=== PATIENT | female | born 1995 | race Caucasian/White ===

== ENCOUNTER 2020-04-19 13:58 | Outpatient (CLI) | payer BC, SELFPAY ==
[2020-04-19 14:11] LABS: Add Urine Microscopic? YES; Appearance Urine Clear (Clear); Bilirubin Urine Negative (Negative); Blood Urine 2+ (Negative); Color Urine Yellow (Yellow); Glucose Urine UA Negative (Negative); Ketones Urine Negative (Negative); Leukocyte Esterase Ur Trace (Negative); Nitrate Urine Negative (Negative); Protein Urine Negative (Negative); Specific Grav Ur 1.025 (1.010-1.020); Urobilinogen Urine 0.2 mg/dL (0.2-1.0)
[2020-04-19 14:11] LABS: Basophils Absolute Auto 0.02 K/mm3 (0.00-0.10); Basophils Percent Auto 0.3 % (0.0-1.0); Eosinophils Absolute Auto 0.17 K/mm3 (0.02-0.50); Eosinophils Percent Auto 2.1 % (1.0-6.0); Hematocrit 40.7 % (35.0-49.0); Hemoglobin 13.8 g/dL (12.0-15.0); Immature Granulocyte Absolute 0.02 K/mm3 (0.00-0.00); Immature Granulocyte Percent A 0.3 % (0.0-0.0); Lymphocytes Absolute Auto 2.22 K/mm3 (1.10-4.50); Lymphocytes Percent Auto 27.9 % (18.0-42.0); Mean Corpuscular HGB Conc 33.9 g/dL (32.0-36.0); Mean Corpuscular Hemoglobin 29.2 pg (27.0-31.0); Mean Platelet Volume 9.5 fl (9.2-11.8); Monocytes Absolute Auto 0.59 K/mm3 (0.10-0.90); Monocytes Percent Auto 7.4 % (2.0-11.0); Platelet Count Result 321 K/mm3 (150-420); Red Blood Count 4.73 M/mm3 (4.20-5.40); Red Cell Distribution Width 12.7 % (11.6-14.4)
[2020-04-19 14:17] LABS: RBC Urine 0-2 /hpf (0-2)
[2020-04-19 14:19] LABS: Bacteria Urine 4+ /hpf; Squamous Epithelial Cell Urine Many /hpf (Few)
[2020-04-19 15:51] LABS: Alanine Aminotransferase 23 U/L (14-59); Albumin Level 4.2 g/dL (3.4-5.0); Alkaline Phosphatase 57 U/L (46-116); Amylase 46 U/L (25-115); Aspartate Amino Transferase 16 U/L (15-37); Bilirubin,Total 0.7 mg/dL (0.00-1.00); Blood Urea Nitrogen 21 mg/dL (7-18); Calcium 9.2 mg/dL (8.5-10.1); Carbon Dioxide 30 mmol/L (21-32); Estimated Glomerular Filt Rate > 60; Glucose 86 mg/dL (70-99); Lipase 84 U/L (73-393); Total Protein 7.7 g/dL (6.4-8.2)
[2020-04-19 16:04] LABS: Anion Gap 11.9 mmol/L (7-16); Chloride 104 mmol/L (98-108); Osmolality Calculated 296 mOsm/kg (285-295); Potassium 3.9 mmol/L (3.5-5.1); Sodium 142 mmol/L (136-145)
== END 2020-04-19 13:59 | disposition home or self-care (01) ==
LOC: CHSLAB 14:01
PROVIDERS: PCP Internal Medicine; Visit Provider Internal Medicine
DX: R10.9 Unspecified abdominal pain (principal)
CPT/HCPCS: 36415; 80053; 81001; 82150; 83690; 85025

== ENCOUNTER 2020-06-11 00:35 | Emergency (ER) | payer BC, SELFPAY ==
--- NOTE | ~2020-06-11 | CT_ITS ---
EXAMINATION: CT abdomen pelvis wo con DATE: 06/11/2020 01:37 INDICATION: Abdominal pain TECHNIQUE: Computed tomography (CT) of the chest was performed without intravenous contrast. The dose -length product (DLP) was 896.95 mGy-cm. Automated exposure control and iterative reconstruction tech nique were employed. COMPARISON: None FINDINGS: The lung bases are clear. The heart size is normal. The gallbladder is surgically absent. T he liver, spleen, pancreas, and adrenal glands are normal. The kidneys are unremarkable. No stones ar e identified in the kidneys, ureters, or bladder. There is no hydronephrosis or hydroureter. No patho logically enlarged abdominal or pelvic lymph nodes are identified. There is no free intraperitoneal g as or evidence of bowel obstruction. An IUD is present in the uterus in expected position. IMPRESSION: 1. No CT correlate for the patient's symptoms. Reviewed, dictated and finalized at location A.
[2020-06-11 00:40] VITALS: BP 143/87; PULSE 100; RESP 18; TEMP 36.8; O2SAT 100
--- NOTE | 2020-06-11 00:54 | ED.ABDPAIN ---
HPI - Abdominal Pain General Chief Complaint: Abdominal Pain Stated Complaint: 25YO female w/ 2-3 day h.o cramping abd pain associated w/ N/V here for evaluation of pain. Patient denies fever, chills, but admits to chronic diarrhea. Related Data Home Medications Medication Instructions Recorded Confirmed paroxetine HCl 20 mg tablet 20 mg PO DAILY 05/09/20 Allergies Allergy/AdvReac Type Severity Reaction Status Date / Time No Known Allergies Allergy Verified 05/09/20 11:34 Review of Systems Review of Systems: All systems reviewed & are unremarkable except as noted in HPI and below Constitutional: Constitutional: Reports no additional constitutional complaints, Denies chills and Denies fever(s) Eyes: Eyes: Reports no additional eye complaints ENT: Reports system reviewed and no additional complaints, except as documented Cardiovascular: Cardiovascular: Reports no additional cardiovascular complaints Respiratory: Respiratory: Reports no additional respiratory complaints, Denies cough and Denies dyspnea Gastrointestinal: Gastrointestinal: Reports abdominal pain, Reports diarrhea (chronic diarrhea), Reports nausea and Reports vomiting Genitourinary: Genitourinary: Reports as per HPI and Reports dysuria Musculoskeletal: Musculoskeletal: Reports no additional musculoskeletal complaints Integumentary/Breasts: Skin/Breast: Reports system reviewed and no additional complaints, except as docu Neurologic: Reports system reviewed and no additional complaints, except as documented Psychiatric: Psychiatric: Reports no additional psychiatric complaints [facility] Past Medical History Medical History Acid reflux Anxiety Irritable bowel Surgical History Surgical History History of cholecystectomy Family History Family History Mother Family history of mental disorder Sibling Family history of mental disorder Father Hypertension Grandparent Diabetes mellitus Social History Social History Smoking status: Never smoker Alcohol intake: current Gender identity (if verbalized by the patient): Female Exam Const: General: healthy appearing, no acute distress and alert Orientation/consciousness: patient oriented x3 HENMT: Head: normal to inspection Eyes: Conjunctivae: conjunctivae normal Pupils: Equal, round and reactive pupils present Neck: Neck: normal visual inspection Chest: Chest palpation & inspection: normal inspection of the chest Resp: Effort & Inspection: normal respiratory effort Auscultation: clear to auscultation bilaterally Cardio: Rate: regular rate Rhythm: regular rhythm GI: Inspection: non-distended GI Palp: Yes Soft to palpation, Yes Tenderness to palpation present (GI) (generalized TTP) and No Rebound tenderness present Auscultation: normal bowel sounds : General: Yes no CVA tenderness Back/Spine/Pelvis: Back: no CVA tenderness Skin: General skin exam: normal color Neuro: General: patient oriented x3, moves all extremities, no focal motor deficits and CN's II-XI intact bilaterally Speech: normal speech Gait exam (Neuro): Normal gait present Extrem: General: normal to inspection Psych: Mental Status: mental status grossly normal Affect: normal affect Course Course Emergency Course: Reviewed normal w/u with patient. Encouraged bland diet as tolerated. Vital Signs Vital signs: Vital Signs Temperature 98.3 F 06/11/20 00:40 Pulse Rate 100 06/11/20 00:40 Respiratory Rate 18 06/11/20 00:40 Blood Pressure 143/87 H 06/11/20 00:40 Pulse Oximetry 100 06/11/20 00:40 Temperature 98.4 F 06/11/20 02:06 Pulse Rate 78 06/11/20 02:06 Respiratory Rate 18 06/11/20 02:06 Blood Pressure 131/77 06/11/20 02:06 Pulse Oximetry
[2020-06-11] MEDS: DICYCLOMINE HCL 10 MG CAPSULE 20 MG PO (01:14)
[2020-06-11 01:29] LABS: Basophils Absolute Auto 0.03 K/mm3 (0.00-0.10); Basophils Percent Auto 0.3 % (0.0-1.0); Eosinophils Absolute Auto 0.08 K/mm3 (0.02-0.50); Eosinophils Percent Auto 0.8 % (1.0-6.0); Hematocrit 38.9 % (35.0-49.0); Hemoglobin 12.5 g/dL (12.0-15.0); Immature Granulocyte Absolute 0.03 K/mm3 (0.00-0.00); Immature Granulocyte Percent A 0.3 % (0.0-0.0); Lymphocytes Absolute Auto 1.87 K/mm3 (1.10-4.50); Lymphocytes Percent Auto 17.6 % (18.0-42.0); Mean Corpuscular HGB Conc 32.1 g/dL (32.0-36.0); Mean Corpuscular Hemoglobin 28.4 pg (27.0-31.0); Mean Corpuscular Volume 88.4 fL (78.0-102.0); Mean Platelet Volume 9.7 fl (9.2-11.8); Monocytes Absolute Auto 0.62 K/mm3 (0.10-0.90); Monocytes Percent Auto 5.8 % (2.0-11.0); Neutrophils Percent Auto 75.2 % (50.0-70.0); Platelet Count Result 308 K/mm3 (150-420); Red Cell Distribution Width 12.9 % (11.6-14.4); White Blood Count 10.6 K/mm3 (4.8-10.8)
[2020-06-11 01:29] LABS: Add Urine Microscopic? YES; Appearance Urine Sl Cloudy (Clear); Bilirubin Urine Negative (Negative); Blood Urine Negative (Negative); Color Urine Yellow (Yellow); Glucose Urine UA Negative (Negative); Ketones Urine 1+ (Negative); Leukocyte Esterase Ur Trace LEU/UL (Negative); Nitrate Urine Negative (Negative); Protein Urine Negative (Negative); Specific Grav Ur 1.025 (1.010-1.020); Urobilinogen Urine 0.2 mg/dL (0.2-1.0); pH Urine 5.5 (5.0-8.0)
[2020-06-11 01:40] LABS: RBC Urine None seen /hpf (0-2); WBC Urine 0-3 /hpf (0-3)
[2020-06-11 01:41] LABS: Bacteria Urine 1+ /hpf; Mucus Urine None seen /lpf; Squamous Epithelial Cell Urine Many /hpf (Few)
[2020-06-11 01:44] LABS: Alanine Aminotransferase 22 U/L (14-59); Albumin Level 3.9 g/dL (3.4-5.0); Alkaline Phosphatase 52 U/L (46-116); Anion Gap 11 mmol/L (8-16); Bilirubin,Total 0.5 mg/dL (0.00-1.00); Blood Urea Nitrogen 15 mg/dL (7-18); Calcium 8.8 mg/dL (8.5-10.1); Carbon Dioxide 25 mmol/L (21-32); Chloride 107 mmol/L (98-108); Estimated Glomerular Filt Rate > 60; Glucose 82 mg/dL (70-99); Lipase 64 U/L (73-393); Osmolality Calculated 295 mOsm/kg (285-295); Potassium 3.4 mmol/L (3.5-5.1); Sodium 143 mmol/L (136-145); Total Protein 7.3 g/dL (6.4-8.2)
[2020-06-11] MEDS: SODIUM CHLORIDE 0.9% IV 1,000 ML 999 ML IV CONT (01:48)
[2020-06-11] MEDS: ONDANSETRON INJ 4 MG/2 ML VIAL IV PUSH (01:49)
[2020-06-11 01:53] LABS: Aspartate Amino Transferase 12 U/L (15-37)
[2020-06-11 02:01] LABS: INR 1.2; Prothrombin Time 12.4 Seconds (9.64-11.0)
[2020-06-11 02:06] VITALS: BP 131/77; PULSE 78; RESP 18; TEMP 36.9; O2SAT 100
[2020-06-11] MEDS: POTASSIUM CHLORIDE 20 MEQ PACKET (FOR LIQUID) PO (03:02)
[2020-06-11 03:10] VITALS: BP 142/70; PULSE 74; RESP 16; TEMP 36.9; O2SAT 96
== END 2020-06-11 03:26 | disposition home or self-care (01) ==
PROVIDERS: Emergency Provider Family Medicine; PCP Internal Medicine
DX: K52.9 Noninfective gastroenteritis and colitis, unspecified (principal); K21.9 Gastro-esophageal reflux disease without esophagitis; F41.9 Anxiety disorder, unspecified
CPT/HCPCS: 36415; 74176; 80053; 81001; 83690; 85025; 85610; 85730; 96361; 96374; 99283; 99284; A9270; J2405; J7030

== ENCOUNTER 2020-09-04 09:55 | Outpatient (CLI) | payer BC, SELFPAY ==
[2020-09-04 10:40] LABS: SARS-CoV-2 Ag Negative (Negative)
== END 2020-09-04 09:56 | disposition home or self-care (01) ==
LOC: CHSLAB 09:58
PROVIDERS: PCP Internal Medicine; Visit Provider Internal Medicine
DX: Z20.828 Contact with and (suspected) exposure to other viral communicable diseases (principal)
CPT/HCPCS: 87426

== ENCOUNTER 2020-10-15 11:11 | Outpatient (CLI) | payer BC, SELFPAY ==
--- NOTE | ~2020-10-15 | XR_ITS ---
EXAMINATION: XR chest 2V DATE: 10/15/2020 11:42 INDICATION: Shortness of breath. Palpitations. TECHNIQUE: Frontal and lateral views of the chest were obtained. COMPARISON: Chest 2 views 07/17/2015 FINDINGS: The chest demonstrates clear lungs without pneumonia, pleural effusion, or pneumothorax. Th e heart size is normal. There are surgical clips in the abdomen. IMPRESSION: 1. No acute cardiopulmonary disease. Reviewed, dictated and finalized at location A. 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
[2020-10-15 11:35] LABS: Basophils Absolute Auto 0.03 K/mm3 (0.00-0.10); Basophils Percent Auto 0.3 % (0.0-1.0); Eosinophils Absolute Auto 0.19 K/mm3 (0.02-0.50); Eosinophils Percent Auto 2.2 % (1.0-6.0); Hematocrit 40.6 % (35.0-49.0); Hemoglobin 13.6 g/dL (12.0-15.0); Immature Granulocyte Absolute 0.02 K/mm3 (0.00-0.00); Immature Granulocyte Percent A 0.2 % (0.0-0.0); Lymphocytes Absolute Auto 2.43 K/mm3 (1.10-4.50); Lymphocytes Percent Auto 28.3 % (18.0-42.0); Mean Corpuscular HGB Conc 33.5 g/dL (32.0-36.0); Mean Corpuscular Hemoglobin 28.5 pg (27.0-31.0); Mean Corpuscular Volume 84.9 fL (78.0-102.0); Mean Platelet Volume 9.7 fl (9.2-11.8); Monocytes Absolute Auto 0.75 K/mm3 (0.10-0.90); Monocytes Percent Auto 8.7 % (2.0-11.0); Neutrophils Absolute Auto 5.2 K/mm3 (1.7-7.2); Neutrophils Percent Auto 60.3 % (50.0-70.0); Platelet Count Result 318 K/mm3 (150-420); Red Blood Count 4.78 M/mm3 (4.20-5.40); Red Cell Distribution Width 12.8 % (11.6-14.4); White Blood Count 8.6 K/mm3 (4.8-10.8)
[2020-10-15 11:36] LABS: Add Urine Microscopic? NO; Appearance Urine Clear (Clear); Bilirubin Urine Negative (Negative); Blood Urine Negative (Negative); Color Urine Yellow (Yellow); Glucose Urine UA Negative (Negative); Ketones Urine Negative (Negative); Leukocyte Esterase Ur Negative LEU/UL (Negative); Nitrate Urine Negative (Negative); Protein Urine Negative (Negative); Urobilinogen Urine 0.2 mg/dL (0.2-1.0); pH Urine 7.5 (5.0-8.0)
[2020-10-15 11:50] LABS: D Dimer 0.19 mg/L (0.19-0.50)
[2020-10-15 12:02] LABS: Alanine Aminotransferase 26 U/L (14-59); Albumin Level 3.7 g/dL (3.4-5.0); Alkaline Phosphatase 48 U/L (46-116); Anion Gap 6 mmol/L (8-16); Aspartate Amino Transferase 16 U/L (15-37); Bilirubin,Total 0.4 mg/dL (0.00-1.00); Blood Urea Nitrogen 16 mg/dL (7-18); Calcium 8.8 mg/dL (8.5-10.1); Carbon Dioxide 29 mmol/L (21-32); Chloride 104 mmol/L (98-108); Creatine Kinase 69 U/L (26-192); Estimated Glomerular Filt Rate > 60; Free T4 Free Thyroxine 1.21 ng/dL (0.76-1.46); Glucose 87 mg/dL (70-99); Osmolality Calculated 288 mOsm/kg (285-295); Potassium 3.4 mmol/L (3.5-5.1); Sodium 139 mmol/L (136-145); Thyroid Stimulating Hormone 4.31 uIU/mL (0.36-3.74); Total Protein 7.7 g/dL (6.4-8.2); Troponin I 4.8 ng/L (0.00-60.4)
[2020-10-19 02:06] LABS: T4 Thyroxine 11.9 mcg/dL (5.1-11.9)
[2020-10-19 05:42] LABS: Total Triiodothyronine (T3) 174 ng/dL (76-181)
== END 2020-10-15 11:12 | disposition home or self-care (01) ==
LOC: CHSLAB 11:13
PROVIDERS: PCP Internal Medicine; Visit Provider Nurse Practitioner Family
DX: R00.2 Palpitations (principal); R06.02 Shortness of breath; R07.9 Chest pain, unspecified
CPT/HCPCS: 36415; 71046; 80053; 81003; 82550; 82553; 84436; 84439; 84443; 84480; 84484; 85025; 85380; 93225; 93226

== ENCOUNTER 2020-12-12 10:42 | Outpatient (CLI) | payer BC, SELFPAY ==
[2020-12-12 11:24] LABS: SARS-CoV-2 Ag Negative (Negative)
== END 2020-12-12 10:43 | disposition home or self-care (01) ==
LOC: CHSLAB 10:45
PROVIDERS: PCP Internal Medicine; Visit Provider Internal Medicine
DX: Z20.822 Contact with and (suspected) exposure to COVID-19 (principal)
CPT/HCPCS: 87426; C9803

== ENCOUNTER 2023-09-08 10:33 | Outpatient (CLI) | payer MEDICAID, SELFPAY ==
--- NOTE | ~2023-09-08 | XR_ITS ---
XR lumbar spine 2-3V 09/08/2023 11:03 Indication: Back pain Procedure: 3 views lumbar spine Comparison: 09/29/2017 Findings: There is disc narrowing at L4-5 and L5-S1. No fracture, subluxation or dislocation. Vertebr al body heights are maintained. No acute fracture or traumatic malalignment. No evidence for spondylo listhesis. Impression: 1: Mild lumbar spondylosis. Reviewed, dictated and finalized at location L. T CARD CLERK Impression: 1: Mild lumbar spondylosis.
[2023-09-08 10:53] LABS: Basophils Absolute Auto 0.05 K/mm3 (0.00-0.10); Basophils Percent Auto 0.5 % (0.0-1.0); Eosinophils Absolute Auto 0.08 K/mm3 (0.02-0.50); Eosinophils Percent Auto 0.8 % (1.0-6.0); Hematocrit 40.9 % (35.0-49.0); Hemoglobin 13.1 g/dL (12.0-15.0); Immature Granulocyte Absolute 0.06 K/mm3 (0.00-0.00); Immature Granulocyte Percent A 0.6 % (0.0-0.0); Lymphocytes Absolute Auto 1.63 K/mm3 (1.10-4.50); Lymphocytes Percent Auto 16.6 % (18.0-42.0); Mean Corpuscular Volume 90.5 fL (78.0-102.0); Mean Platelet Volume 8.8 fl (9.2-11.8); Monocytes Absolute Auto 0.57 K/mm3 (0.10-0.90); Monocytes Percent Auto 5.8 % (2.0-11.0); Neutrophils Absolute Auto 7.5 K/mm3 (1.7-7.2); Neutrophils Percent Auto 75.7 % (50.0-70.0); Platelet Count Result 364 K/mm3 (150-420); Red Blood Count 4.52 M/mm3 (4.20-5.40); Red Cell Distribution Width 13.3 % (11.6-14.4); White Blood Count 9.8 K/mm3 (4.8-10.8)
[2023-09-08 11:27] LABS: Alanine Aminotransferase 33 U/L (14-59); Albumin Level 3.8 g/dL (3.4-5.0); Alkaline Phosphatase 46 U/L (46-116); Anion Gap 4 mmol/L (8-16); Aspartate Amino Transferase 15 U/L (15-37); Bilirubin,Total 0.5 mg/dL (0.00-1.00); Blood Urea Nitrogen 19 mg/dL (7-18); Calcium 9.1 mg/dL (8.5-10.1); Carbon Dioxide 33 mmol/L (21-32); Chloride 102 mmol/L (98-108); Estimated Glomerular Filt Rate > 60; Glucose 81 mg/dL (70-99); Osmolality Calculated 289 mOsm/kg (285-295); Sodium 139 mmol/L (136-145); Total Protein 7.1 g/dL (6.4-8.2)
[2023-09-08 11:30] LABS: CRP < 0.5 mg/dL (0.0-0.9)
== END 2023-09-08 10:34 | disposition home or self-care (01) ==
LOC: CHSLAB 10:36
PROVIDERS: PCP Internal Medicine; Visit Provider Internal Medicine
DX: M54.50 Low back pain, unspecified (principal); M54.16 Radiculopathy, lumbar region; M43.06 Spondylolysis, lumbar region
CPT/HCPCS: 36415; 72100; 80053; 85025; 86140

== ENCOUNTER 2023-09-11 08:37 | Outpatient (RCR) | payer MEDICAID, SELFPAY ==
--- NOTE | 2023-09-24 17:45 | OPREHPOC ---
Outpatient Therapy Plan of Care This is a Multidisciplinary Plan of Care that may contain components documented by all disciplines (PT, OT, and ST.) PT Problem 1 PT Problem #1 Knowledge Deficit PT Goal 1 Goal 1. independent and compliant with HEP Target Visit 6 PT Problem 2 PT Problem #2 Pain PT Goal 1 Goal 1. 2/10 or less pain at worst in the lower back. 2. no L LE symptoms Target Visit 12 PT Problem 3 PT Problem #3 Impaired Strength PT Goal 1 Goal 1. improve core strength to 4-/5 2. improve bilateral LE strength to 5/5 Target Visit 12 PT Problem 4 PT Problem #4 Impaired Range of Motion PT Goal 1 Goal 1. 100% arom lumbar mobility without pain. Target Visit 12 PT Problem 5 PT Problem #5 Impaired Functional Mobil PT Goal 1 Goal 1. oswestry to display less than 10% functional deficits 2. patient to ambulate for 10 minutes without rest 3. patient to stand perform 1 hour of skilled PT without rest 4. patient to squat and lift 40lbs from floor to waist with safe mechanics Target Visit 12
--- NOTE | 2023-09-24 17:46 | PTOPEVAL1 ---
Assessment and note entered by JT File, PT Evaluation Information Assessment Status Evaluation Diagnosis lumbago, L lumbosacral radiculopathy Onset 08/09/23 Subjective Information patient reports she had an injury on 08/09/23. she reports twisted wrong at work while lifting. 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 she reports since the injury, she can feel the pain in the lower back on the L side. she reports the pain is shooting down the L LE. she reports the pain goes down to the mid calf of the L LE. she reports the pain is all on the back of the L LE. she reports she has increased pain with sitting, bending, trying to walk. Reported Pain Level Pain Score 1: Self Report Assessment PT Clinical Summary mrs. hughes is a 28 yo woman who presents to skilled PT services for evaluation and treatment of lower back pain/L lumbar radiculopathy. she presents with signs and symptoms today that indicate she had a discoid injury in the lower back. she has L LE paresthesias, pain, weakness, and postural guarding. she would benefit from continued skilled PT to address her objective/ functional deficits and return to her prior level functional activity performance/quality life. Plan of Care Interventions Electrical Stimulation,Gait Training,Hot Pack/Cold Pack,Manual Therapy,Mechanical Traction,Neuro Re- education,Patient/Caregiver Educati,Therapeutic Activities,Therapeutic Exercise PT Services Indicated Yes Treatment Frequency and 2x weekly for 12 visits Duration These treatments will address the objective and functional deficits as defined above. The patient will be advanced safely and appropriately in order for the patient to progress towards his/her prior level of function. Additional exercises will be introduced and as well as a comprehensive home exercise program upon discharge, if needed, ?to ensure carryover of functional gains achieved in the clinic. This treatment plan has been reviewed and agreement upon by the patient.
--- NOTE | 2023-10-06 07:12 | PCPTNOTE ---
patient was a no call/no show this morning. called patient and left to inform patient she missed her appointment this morning, and has another appointment scheduled this week on 10/08/23.
--- NOTE | 2023-10-08 07:16 | PCPTNOTE ---
patient missed her therapy this morning, and again was a no call/no show. I called and left a VM on patients phone that she had missed today, and has no future visits scheduled. gave patient our phone number to call to get back on the schedule.
== END 2023-09-25 20:00 | disposition home or self-care (01) ==
LOC: CHSPT 08:37
PROVIDERS: PCP Internal Medicine; Visit Provider Internal Medicine
DX: M54.50 Low back pain, unspecified (principal); M54.17 Radiculopathy, lumbosacral region
CPT/HCPCS: 97014; 97110; 97161; G0283

== ENCOUNTER 2024-03-07 20:24 | Emergency (ER) | payer OTHER, SELFPAY ==
[2024-03-07 20:34] VITALS: BP 126/85; PULSE 87; RESP 18; TEMP 36.4; O2SAT 100
--- NOTE | 2024-03-07 21:08 | ED.DENTAL ---
HPI - Dental/Oral General Chief complaint: Dental/Oral Stated complaint: dental pain Time Seen by Provider: 03/07/24 21:08 Source: patient Mode of arrival: ambulatory Limitations: no limitations History of Present Illness HPI Narrative: 29 year old female presents to the Emergency Department complaining of left lower dental pain. Onset several days ago. Complaint: tooth pain Onset (ago): day(s) (several) Duration: constant Severity: mild Relieving factors: nothing Exacerbating factors: nothing Related Data Home Medications Medication Instructions Recorded Confirmed escitalopram oxalate 10 mg tablet 10 mg PO DAILY 03/07/24 03/07/24 nortriptyline 10 mg capsule 10 mg PO DAILY 03/07/24 03/07/24 Allergies Allergy/AdvReac Type Severity Reaction Status Date / Time No Known Allergies Allergy Verified 03/07/24 20:26 Review of Systems Review of Systems: All systems reviewed & are unremarkable except as noted in HPI and below Constitutional: Constitutional: Reports as per HPI Eyes: Eyes: Reports as per HPI ENT: Reports system reviewed and no additional complaints, except as documented Cardiovascular: Cardiovascular: Reports as per HPI Respiratory: Respiratory: Reports as per HPI Gastrointestinal: Gastrointestinal: Reports as per HPI Genitourinary: Genitourinary: Reports no additional female genitourinary complaints Musculoskeletal: Musculoskeletal: Reports no additional musculoskeletal complaints Integumentary/Breasts: Skin/Breast: Reports system reviewed and no additional complaints, except as docu Neurologic: Reports system reviewed and no additional complaints, except as documented Psychiatric: Psychiatric: Reports no additional psychiatric complaints Endocrine: Endocrine: Reports no additional endocrine complaints Hematologic/Lymphatic: Hematologic/Lymphatic: Reports no additional hematologic/lymphatic complaints Allergic/Immunologic: Allergic/Immunologic: Reports no additional allergic/immunologic complaints [facility] Past Medical History Medical History (Updated 03/07/24 @ 21:39 by Kelechi Calderon MD) Acid reflux Anxiety Irritable bowel Surgical History Surgical History History of cholecystectomy Family History Family History Mother Family history of mental disorder Sibling Family history of mental disorder Father Hypertension Grandparent Diabetes mellitus Social History Social History Smoking status: Never smoker Alcohol intake: current Gender identity (if verbalized by the patient): Female Exam Const: General: healthy appearing Nutritional Appearance: obese Orientation/consciousness: patient oriented x3 Limitations: no limitations HENMT: Head: normal to inspection Ears: external ears normal Face/Nose/Sinus: Normal external nose present Face and sinus: normal facial exam Mouth: Yes Normal oral and palatal mucosa present Teeth and gingiva: abnormal tooth and associated gingiva (dental decay #18) Throat: posterior oropharynx normal Eyes: Conjunctivae: conjunctivae normal Pupils: Equal, round and reactive pupils present EOM: EOMs intact bilaterally Direct Ophthalmoscopy: no photophobia Neck: Neck: normal visual inspection Chest: Chest palpation & inspection: normal inspection of the chest Resp: Effort & Inspection: normal respiratory effort Cardio: Rate: regular rate Rhythm: regular rhythm GI: Inspection: non-distended Skin: General skin exam: normal color Rashes: no rashes Wounds: no wounds Neuro: General: patient oriented x3, moves all extremities, no meningeal signs, no focal motor deficits and CN's II-XI intact bilaterally Cranial nerves: Yes Nystagmus not present Speech: normal speech Gait exam (Neuro): Normal gait present Extrem: General: normal to inspection Psych: Men
[2024-03-07] MEDS: HYDROcodone/acetaminophen (*CRX) 10-325 MG TABLET 1 TAB PO (21:52)
[2024-03-07] MEDS: AMOXICILLIN/CLAVULANATE K 875-125 MG TAB 1 TABLET PO (21:52)
[2024-03-07 22:10] VITALS: BP 125/66; PULSE 88; RESP 16; TEMP 36.9; O2SAT 100
[2024-03-07 22:37] LABS: HIV 1 P24 AG Negative (Negative); HIV 1/2 AB Negative (Negative)
== END 2024-03-07 22:10 | disposition home or self-care (01) ==
PROVIDERS: Emergency Provider Emergency Medicine; PCP Internal Medicine
DX: K08.89 Other specified disorders of teeth and supporting structures (principal); K02.9 Dental caries, unspecified; F41.9 Anxiety disorder, unspecified; Z11.4 Encounter for screening for human immunodeficiency virus [HIV]
CPT/HCPCS: 36415; 87806; 99283; A9270

== ENCOUNTER 2024-09-29 02:47 | Emergency (ER) | payer OTHER, MEDICAID, SELFPAY ==
[2024-09-29] VITALS (12 sets, daily range): BP systolic 136–155; BP diastolic 81–105; PULSE 96–111; RESP 16–18; TEMP 37–37.6; O2SAT 97–100
--- NOTE | ~2024-09-29 | CT_ITS ---
EXAMINATION: CT abdomen pelvis wo con DATE: 09/29/2024 04:25 INDICATION: Left lower quadrant abdominal pain. Recent section. TECHNIQUE: Computed tomography (CT) of the abdomen and pelvis was performed without intravenous contr ast. Automated exposure control and iterative reconstruction technique were employed. The dose-length product was 1585.95 mGy-cm. COMPARISON: CT abdomen and pelvis 06/11/2020 FINDINGS: The visualized portions of the lung bases demonstrate mild atelectasis on the left. No pleu ral effusion. The heart size is normal. No pericardial effusion. The liver is normal. There are lopez es of cholecystectomy. The spleen, pancreas, adrenal glands, and kidneys are normal. There is no urol ithiasis. There are no dilated loops of bowel. The appendix is normal. There are no pathologically en larged lymph nodes. There is no free intraperitoneal fluid. The uterus is enlarged, consistent with r ecent . There is a 10.3 x 2.4 x 2.9 cm subcutaneous fluid collection in low anterior abdomin al wall at the site of recent section. The left ovary is enlarged and measures 5.0 x 3.5 cm. There is mild lumbar spondylosis. IMPRESSION: 1. 10.3 x 2.4 x 2.9 cm subcutaneous fluid collection at the site of the recent section, cons istent with seroma versus hematoma versus abscess. 2. Enlarged left ovary, which may be secondary to mass/cyst, torsion, or juxta-ovarian ascites. Pelvi s ultrasound is recommended. Reviewed, dictated and finalized at location A. ESSIONAL EMPLOYER CONSULTANT IMPRESSION: 1. 10.3 x 2.4 x 2.9 cm subcutaneous fluid collection at the site of the recent section, consistent with seroma versus hematoma versus abscess. 2. Enlarged left ovary, which may be secondary to mass/cyst, torsion, or juxta- ovarian ascites. Pelvis ultrasound is recommended.
--- NOTE | ~2024-09-29 | US_ITS ---
EXAMINATION: US pelvic complete DATE: 09/29/2024 07:30 INDICATION: Left lower quadrant abdominal pain. TECHNIQUE: Multiple transabdominal sonographic images of the pelvis were obtained. COMPARISON: CT abdomen and pelvis 09/29/2024 FINDINGS: The uterus measures 10.5 x 8.6 x 6.3 cm. There is no free fluid in the pelvis. In the subcutaneous fa t at the section incision, there is a 7.1 x 3.0 x 1.9 cm thick-walled fluid collection. The endometrial complex measures 9 mm in thickness. The ovaries are not visualized. IMPRESSION: 1. Thick-walled subcutaneous fluid collection at the section incision, which may be a subacu te hematoma, seroma, or abscess. 2. Ovaries not visualized. Reviewed, dictated and finalized at location A. ISH LANGUAGE LECTURER IMPRESSION: 1. Thick-walled subcutaneous fluid collection at the section incision, which may be a subacute hematoma, seroma, or abscess. 2. Ovaries not visualized.
--- NOTE | 2024-09-29 03:02 | ED_ITS ---
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 patient was on oxycodone for postop pain. She had lower abdominal pain around 11:00 p.m. before bedtime and then she woke up at 2:00 a.m. with chills. She rates her pain as a 4 to 5/10. She has been having constipation on and off for the past 10 days last bowel movement was at 5:00 p.m. she had been having about 2 bowel movements a day. Today was the 1st day she had taken MiraLax. She has history of hypertension possibly before her but started treatment during her and now on nifedipine XL 60 mg daily labetalol 300 mg 3 times a day. Denies any problems voiding. She has had a and gallbladder surgery. History of GERD hypertension irritable bowel syndrome and preeclampsia. Denies any Nausea vomiting,fever cough runny nose sore throat problems walking talking seeing or hearing dizziness or lightheadedness swelling lumps or bumps weakness or numbness. She has had vaginal bleed since her C- section which is gradually getting better. She denies any other complaints. She is here in the ED with her father tc complaint of constipation Related Data Home Medications ?Medication ?Instructions ?Recorded ?Confirmed ?Last Taken ?Type cyclobenzaprine 5 mg tablet 5 mg PO PRN cramps 09/29/24 Unknown History escitalopram oxalate 20 mg tablet 20 mg PO .QD 09/29/24 09/29/24 Unknown History famotidine 40 mg tablet 40 mg PO QHS 09/29/24 09/29/24 Unknown History ibuprofen 600 mg tablet 600 mg PO Q6-8H PRN pain 09/29/24 09/29/24 Unknown History labetalol 300 mg tablet 300 mg PO .Q8 09/29/24 09/29/24 09/28/24 History nifedipine 60 mg tablet,extended 60 mg PO .Q24 09/29/24 09/29/2409/28/24 History release oxycodone 5 mg tablet 5 mg PO QID PRN pain 09/29/24 09/29/24 09/28/24 History polyethylene glycol 3350 17 17 g PO .QD 09/29/24 09/29/24 09/28/24 History gram/dose oral powder (ClearLax) Allergies Allergy/AdvReac Type Severity Reaction Status Date / Time No Known Allergies Allergy Verified 09/29/24 03:07 Review of Systems 2 Review of Systems: All systems reviewed & are unremarkable except as noted in HPI and below PMFSH Past Medical History Medical History (Updated 09/29/24 @ 08:09 by Ty Hughes MD) Acid reflux Anxiety Irritable bowel Surgical History Surgical History History of cholecystectomy Family History Family History Mother Family history of mental disorder Sibling Family history of mental disorder Father Hypertension Grandparent Diabetes mellitus Social History Social History Smoking status: Never smoker Alcohol intake: current Gender identity (if verbalized by the patient): Female Exam 2 Narrative: White female patient with no apparent distress. blood pressure 155/98 repeat 139/88.? Head normocephalic, atraumatic.? Eyes conjunctiva pink sclera nonicteric.? Extraocular movements are intact.? Ears externally normal. ?Oropharynx is clear with moist mucous membranes without exudates.? Neck is supple nontender no lymphadenopathy.? Back is nontender.? No CVA tenderness. Lungs are clear.? Heart is regular rate and rhythm without murmurs gallops or rubs.? Chest wall nontender. Abdomen is soft and Positive bowel sounds. She has suprapubic tenderness. Her incision is nontender lives healing well with no discharge. She has no hepatosplenomegaly or masses no CVA tenderness no abdominal bruits.? Extremities no cyanosis clubbing or edema.? Skin is warm and dry without rashes or lesions.? Neurological patient is alert and oriented x4.? Motor and sensory grossly intact.? Gait is normal. Course Vital Signs Vital signs: Vital Signs Temperature 37.6 C 12/26/24 02:54 Pulse Rate 100 09/29/24 02:54 Respiratory Rate 18 09/29/24 02:54 Blood Pressure 155/98 H 09/29/24 02:54 Pulse Oximetry 98 09/29/24 02:54 Oxygen Delivery Room Air 09/29/24 02:54 Temperature 37.0 C 09/29/24 06:05 Pulse Rate 99 09/29/24 06:05 Respiratory Rate 18 09/29/24 06:05 Blood Pressure 136/90 09/29/24 06:05 Pulse Oximetry 99 09/29/24 06:05 Oxygen Delivery Room Air 09/29/24 06:05 Medical Decision Making MDM Narrative Medical decision making narrative: ?Patient placed in room: 6 with her father ? History and physical was performed. blood culture obtained CT abdomen pelvis without contrast: ventral soft tissue of operative bed subcutaneous 12 cm collection of potentially abscess or hematoma left adnexal region possibly prominent ovary recommend pelvic ultrasound H&H 10.1 and 30.6 with normal wbc's it and platelets.? Coags unremarkable, Sodium 146 potassium 3.1 Osmo 301 the rest of CMP is normal. Lactic acid is normal lipase is normal Urine is positive for nitrites +2 bacteria Independent Historian: father External Source Review: Differential Dx includes but not limited to: constipation pancreatitis bowel obstruction colitis uterine infection Medications were Reviewed: home meds reviewed Medications given: oxycodone 5, cipro 500 mg po Independently Interpreted by me: labs independently interpreted by me. Shared decision Making: Evaluation was discussed with patient her father all questions were asked and answered they agreed with the plan. 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 ORR DIAGNOSIS: abdominal pain urinary tract infection ultrasound showed thick wall subcutaneous fluid collection over C-sections incision most likely subacute hematoma or seroma. Of the disease and abscess is nontender whatsoever there is no erythema or warmth. DISPOSITION : discharge home CONDITION AT DISCHARGE: stable Vital Signs Vital Signs: Vital Signs Temperature 37.6 C 09/29/24 02:54 Pulse Rate 100 09/29/24 02:54 Respiratory Rate 18 09/29/24 02:54 Blood Pressure 155/98 H 09/29/24 02:54 Pulse Oximetry 98 09/29/24 02:54 Oxygen Delivery Room Air 09/29/24 02:54 Temperature 37.0 C 09/29/24 06:05 Pulse Rate 99 09/29/24 06:05 Respiratory Rate 18 09/29/24 06:05 Blood Pressure 136/90 09/29/24 06:05 Pulse Oximetry 99 09/29/24 06:05 Oxygen Delivery Room Air 09/29/24 06:05 Lab Data 09/29/24 04:01 09/29/24 04:01 Labs: Lab Results 09/29/24 09/29/24 Range/Units 04:01 04:04 WBC 6.2 (4.8-10.8) K/mm3 RBC 3.41 L (4.20-5.40) M/mm3 Hgb 10.1 L (12.0-15.0) g/dL Hct 30.6 L (35.0-49.0) % MCV 89.7 (78.0-102.0) fL MCH 29.6 (27.0-31.0) pg MCHC 33.0 (32-36) g/dL RDW 14.1 (11.6-14.4) % Plt Count 332 (150-420) K/mm3 MPV 8.1 L (9.2-11.8) fl PT 12.3 H (9.50-12.1) Seconds INR 1.1 APTT 24.8 (23.9-30.70) Sec Sodium 146 H (136-145) mmol/L Potassium 3.1 L (3.5-5.1) mmol/L Chloride 108 (98-108) mmol/L Carbon Dioxide 26 (21-32) mmol/L Anion Gap 12 (4-12) mmol/L BUN 11 (7-18) mg/dL Creatinine 0.83 (0.55-1.02) mg/dL Estim Creat Clear Calc 117 ml/min Estimated GFR > 60 (59 - ) Glucose 94 (70-99) mg/dL Calculated Osmolality 301 H (285-295) mOsm/kg Lactic Acid 1.1 (0.4-2.0) mmol/L Calcium 8.9 (8.5-10.1) mg/dL Total Bilirubin 0.4 (0.00-1.00) mg/dL AST 12 L (15-37) U/L ALT 21 (14-59) U/L Alkaline Phosphatase 76 (46-116) U/L Total Protein 6.7 (6.4-8.2) g/dL Albumin 2.7 L (3.4-5.0) g/dL Lipase 32 (16-77) U/L Urine Color Light yellow (Yellow) Urine Appearance Clear (Clear) Urine pH 6.0 (5.0-8.0) Ur Specific [place] 1.025 H (1.010-1.020) Urine Protein Trace H (Negative) Urine Glucose (UA) Negative (Negative) Urine Ketones Negative (Negative) Ur Blood (Man) Negative (Negative) Urine Nitrate Positive H (Negative) Urine Bilirubin Negative (Negative) Urine Urobilinogen 0.2 (0.2-1.0) mg/dL Leukocyte Esterase Rfl Negative (Negative) TIMA/UL Urine RBC 0-2 (0-2) /hpf Urine WBC 0-3 (0-3) /hpf Ur Squamous Epith Cells Few (Few) /hpf Urine Bacteria 2+ (None) /hpf Discharge Plan Discharge Clinical Impression: Acute UTI, Seroma after procedure Abdominal pain Qualifiers: Abdominal location: generalized Qualified Code(s): R10.84 - Generalized abdominal pain Patient Disposition: Home, Self-Care Condition: Stable Instructions: Antibiotic Form Additional Instructions: Cipro 250 twice a day for 5 days. Follow-up with your supervisor cigar making hand in the next 1-7 days. Return if you get worse or develops any new symptoms.. Return if you get worse or develops any new symptoms. discuss your ultrasound of your pelvis with her ceramic tile setter. Patient Language: Citizen Of [place] Prescriptions: New ciprofloxacin HCl [Cipro] 250 mg tablet 250 mg PO Q12H 5 Days Qty: 10 0RF No Action famotidine 40 mg tablet 40 mg PO QHS escitalopram oxalate 20 mg tablet 20 mg PO .QD cyclobenzaprine 5 mg tablet 5 mg PO PRN (Reason: cramps) ibuprofen 600 mg tablet 600 mg PO Q6-8H PRN (Reason: pain) labetalol 300 mg tablet 300 mg PO .Q8 polyethylene glycol 3350 [ClearLax] 17 gram/dose powder 17 g PO .QD nifedipine 60 mg tablet extended release 60 mg PO .Q24 oxycodone 5 mg tablet 5 mg PO QID PRN (Reason: pain) Follow-up/Referrals: Bertrand Stephen MD [Primary Care Provider] - Time of Disposition: 07:57
[2024-09-29 04:06] LABS: Hematocrit 30.6 % (35.0-49.0); Hemoglobin 10.1 g/dL (12.0-15.0); Mean Corpuscular Hemoglobin 29.6 pg (27.0-31.0); Mean Corpuscular Volume 89.7 fL (78.0-102.0); Mean Platelet Volume 8.1 fl (9.2-11.8); Platelet Count Result 332 K/mm3 (150-420); Red Blood Count 3.41 M/mm3 (4.20-5.40); Red Cell Distribution Width 14.1 % (11.6-14.4); White Blood Count 6.2 K/mm3 (4.8-10.8)
[2024-09-29 04:08] LABS: Add Urine Microscopic? YES; Appearance Urine Clear (Clear); Bilirubin Urine Negative (Negative); Blood Urine Negative (Negative); Color Urine Light Yellow (Yellow); Glucose Urine UA Negative (Negative); Ketones Urine Negative (Negative); Leukocyte Esterase Ur Negative LEU/UL (Negative); Nitrate Urine Positive (Negative); Protein Urine Trace (Negative); Specific Grav Ur 1.025 (1.010-1.020); Urobilinogen Urine 0.2 mg/dL (0.2-1.0)
[2024-09-29 04:18] LABS: Bacteria Urine 2+ /hpf; RBC Urine 0-2 /hpf (0-2); Squamous Epithelial Cell Urine Few /hpf (Few); WBC Urine 0-3 /hpf (0-3)
[2024-09-29 04:21] LABS: INR 1.1; Partial Thromboplastin Time 24.8 Sec (23.9-30.70); Prothrombin Time 12.3 Seconds (9.50-12.1)
[2024-09-29 04:35] LABS: Lactic Acid Reflex 1.1 mmol/L (0.4-2.0)
[2024-09-29] MEDS: oxyCODONE/ACETAMINOPHEN (*CRX) 5-325 MG TABLET 1 TABLET PO (04:35)
[2024-09-29 04:38] LABS: Anion Gap 12 mmol/L (4-12); Blood Urea Nitrogen 11 mg/dL (7-18); Carbon Dioxide 26 mmol/L (21-32); Chloride 108 mmol/L (98-108); Estimated CRCL calculation 117 ml/min; Estimated Glomerular Filt Rate > 60; Potassium 3.1 mmol/L (3.5-5.1); Sodium 146 mmol/L (136-145)
[2024-09-29 04:39] LABS: Alanine Aminotransferase 21 U/L (14-59); Albumin Level 2.7 g/dL (3.4-5.0); Alkaline Phosphatase 76 U/L (46-116); Aspartate Amino Transferase 12 U/L (15-37); Bilirubin,Total 0.4 mg/dL (0.00-1.00); Calcium 8.9 mg/dL (8.5-10.1); Glucose 94 mg/dL (70-99); Lipase 32 U/L (16-77); Osmolality Calculated 301 mOsm/kg (285-295); Total Protein 6.7 g/dL (6.4-8.2)
--- NOTE | 2024-09-29 07:15 | PC.NURSE ---
REPORT TO KRYSTEN WHITE.
[2024-09-29] MEDS: CIPROFLOXACIN 500 MG TAB PO (07:29)
--- NOTE | 2024-10-01 12:48 | PC.NURSE ---
preliminary blood cultures x2 reviewed. no growth to date
--- NOTE | 2024-10-01 12:57 | PC.NURSE ---
final urine culture reviewed. > 100,000 pseudomonas aeruginosa isolated. report shows sensitivity to cipro prescribed to pt at discharge. no change in plan of care.
--- NOTE | 2024-10-05 12:30 | PC.NURSE ---
FINAL BLOOD CULTURE REPORT; NO GROWTH AFTER 5 DAYS.
--- OUTSIDE RECORDS SUMMARY | 2024-10-06 03:30 | XMS_ITS | Encounter Summary ---
Author Organization [facility] Address [address] [place] [address]. 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 difficile 10/20/2018 10/20/2018 documented as of this encounter
--- OUTSIDE RECORDS SUMMARY | 2024-10-06 03:30 | XMS_ITS | Clinical Summary ---
Author Organization [facility] Address [address] [place] [address]. [place] [address] Care Team Providers Care Community Advocate Name Role Phone Unavailable Primary Care Provider Unavailabl e Social History Tobacco Use Types Packs/Day Years Used Date Smoking Tobacco: Never Assessed Comments Unknown Sex and Gender Information Value Date Recorded Sex Assigned at Not on file Legal Sex Female 9:48 PM INTELLIGENCE CONSULTANT Gender Identity Not on file Sexual Orientation Not on file Plan of Treatment Health Maintenance Due Date Last Done Comments Cervical Cancer Screening Pa p Smear (Age 21 to 29) Every 3 Years 1997 Cervical Cancer Screening 1997 Annual Physical 02/01/2000 Hepatitis C 2015 DTaP, Tdap and Td Vaccines ( 1 - Tdap) 02/01/2016 Hepatitis B Vaccines (1 of 3 - 19+ 3-dose series) 02/01/2016 COVID-19 Vaccine (2023-2 5 season) 2024 Influenza Adult (#1) 2024 HPV Vaccines Aged Out No longer eligi ble based on patient's age to complete this topic Meningococcal Vaccine Aged Out No tian audra eligible based on patient's age to complete this topic Pneumococcal Vaccine: Pediat rics (0 to 5 Years) and At-Risk Patients (6 to 64 Years) Aged Out No longer eligible b ased on patient's age to complete this topic RSV Immunizations Under 20 Months Aged Out No longer eligible based on patient's age to complete this topic Additional Health Concerns Infection Onset Date Last Indicated C. difficile 10/20/2018 10/20/2018 Insurance [facility] MEDICAID
--- OUTSIDE RECORDS SUMMARY | 2024-10-06 03:30 | XMS_ITS | Encounter Summary ---
Author Organization [facility] Address [address] [place] [address]. [place] [address] [place] [address] Care Team Providers Care Hazardous Waste Remover Name Role Phone Unavailable Primary Care Provider Unavailabl e Encounter Details Date Type Department Care Team (Late st Contact Info) Description 05/01/2018 Abstract [place] [facility] [facility] [address] Leonel Flaherty MD [address] [address] Social History Tobacco Use Types Packs/Day Years Used Date Smoking Tobacco: Never Assessed Comments Unknown Sex and Gender Information Value Date Recorded Sex Assigned at Not on file Legal Sex Female 9:48 PM STEAMBLASTER Gender Identity Not on file Sexual Orientation Not on file documented as of this encounter Plan of Treatment Not on file documented as of this encounter Visit Diagnoses Diagnosis Rash and other nonspecific skin eruption documented in this encounter Additional Health Concerns Infection Onset Date Last Indicated Resolved Time C. difficile 10/20/2018 10/20/2018 documented as of this encounter
--- OUTSIDE RECORDS SUMMARY | 2024-10-06 03:30 | XMS_ITS | Encounter Summary ---
Author Organization [facility] Address [address] [place] [address]. [place] [address] [place] [address] Care Team Providers Care Director Integrated Name Role Phone Unavailable Primary Care Provider Unavailabl e Encounter Details Date Type Department Care Team (Late st Contact Info) Description 03/14/2018 Abstract [place] [facility] [facility] [place] [address] Seferino Valles MD [address] [place] [address] Social History Tobacco Use Types Packs/Day Years Used Date Smoking Tobacco: Never Assessed Comments Unknown Sex and Gender Information Value Date Recorded Sex Assigned at Not on file Legal Sex Female 9:48 PM UROLOGY PHYSICIAN ASSISTANT Gender Identity Not on file Sexual Orientation Not on file documented as of this encounter Plan of Treatment Not on file documented as of this encounter Visit Diagnoses Diagnosis Open wound of right great toe with damage to nail Open wound of toe(s), without mention of complication documented in this encounter Additional Health Concerns Infection Onset Date Last Indicated Resolved Time C. difficile 10/20/2018 10/20/2018 documented as of this encounter
--- OUTSIDE RECORDS SUMMARY | 2024-10-06 03:30 | XMS_ITS | Encounter Summary ---
Author Organization [facility] Address [address] [place] [address]. [place] [address] [place] [address] Care Team Providers Care Radio Technician Name Role Phone Unavailable Primary Care Provider Unavailabl e Reason for Visit * Reason Comments Holter Monitor Report (SCAN) Encounter Details Date Type Department Care Team ([facility] Contact Info) Description 10/15/2020 [facility] [address] [place] [id number] Scanned, Documents Holter Monitor Report (SCAN) Social History Tobacco Use Types Packs/Day Years Used Date Smoking Tobacco: Never Assessed Comments Unknown Sex and Gender Information Value Date Recorded Sex Assigned at Not on file Legal Sex Female 9:48 PM TICKET MAKER Gender Identity Not on file Sexual Orientation Not on file documented as of this encounter Plan of Treatment Not on file documented as of this encounter Procedures Procedure Name Priority Date/Time Associated Diagnosis Comments HOLTER DOCUMENT (SCAN ORDER) Routine 10/15/2020 documented in this encounter Results * HOLTER DOCUMENT (10/15/2020) us Documents Scanned SCANNING Final Result [facility] documented in this encounter Visit Diagnoses Not on filedocumented in this encounter Additional Health Concerns Infection Onset Date Last Indicated Resolved Time C. difficile 10/20/2018 10/20/2018 documented as of this encounter
--- OUTSIDE RECORDS SUMMARY | 2024-10-06 03:31 | XMS_ITS | Encounter Summary ---
Author Organization [facility] Address [address] [place] [address]. [place] [address] [place] [address] Care Team Providers Care Talent Scout Name Role Phone Unavailable Primary Care Provider Unavailabl e Encounter Details Date Type Department Care Team (Late st Contact Info) Description 10/07/2001 Abstract [facility] [address] [place] [address] , Generic Conversion, Social History Tobacco Use Types Packs/Day Years Used Date Smoking Tobacco: Never Assessed Comments Unknown Sex and Gender Information Value Date Recorded Sex Assigned at Not on file Legal Sex Female 9:48 PM FINANCIAL AID Gender Identity Not on file Sexual Orientation Not on file documented as of this encounter Plan of Treatment Not on file documented as of this encounter Visit Diagnoses Not on filedocumented in this encounter Additional Health Concerns Infection Onset Date Last Indicated Resolved Time C. difficile 10/20/2018 10/20/2018 documented as of this encounter
--- OUTSIDE RECORDS SUMMARY | 2024-10-06 03:31 | XMS_ITS | Encounter Summary ---
Author Organization [facility] Address [address] [place] [address]. [place] [address] [place] [address] Care Team Providers Care Vascular Specialists Name Role Phone Unavailable Primary Care Provider Unavailabl e Encounter Details Date Type Department Care Team (Late st Contact Info) Description 1997 Abstract [facility] CONVERSION [address] [place] [address] , Generic Conversion, Social History Tobacco Use Types Packs/Day Years Used Date Smoking Tobacco: Never Assessed Comments Unknown Sex and Gender Information Value Date Recorded Sex Assigned at Not on file Legal Sex Female 9:48 PM TEXTILE CHEMIST Gender Identity Not on file Sexual Orientation Not on file documented as of this encounter Plan of Treatment Not on file documented as of this encounter Visit Diagnoses Not on filedocumented in this encounter Additional Health Concerns Infection Onset Date Last Indicated Resolved Time C. difficile 10/20/2018 10/20/2018 documented as of this encounter
--- OUTSIDE RECORDS SUMMARY | 2024-10-06 03:31 | XMS_ITS | Encounter Summary ---
Author Organization [facility] Address [address] [place] [address]. [place] [address] [place] [address] Care Team Providers Care Train Control Electronic Technician Name Role Phone Unavailable Primary Care Provider Unavailabl e Encounter Details Date Type Department Care Team (Late st Contact Info) Description 05/04/2015 Abstract [place] [facility] [facility] [place] [address] Angelo Naik MD [address] [place] [address] Social History Tobacco Use Types Packs/Day Years Used Date Smoking Tobacco: Never Assessed Comments Unknown Sex and Gender Information Value Date Recorded Sex Assigned at Not on file Legal Sex Female 9:48 PM SEMICONDUCTOR DEVELOPMENT TECHNICIAN Gender Identity Not on file Sexual Orientation Not on file documented as of this encounter Plan of Treatment Not on file documented as of this encounter Visit Diagnoses Diagnosis Constipation Unspecified constipation documented in this encounter Additional Health Concerns Infection Onset Date Last Indicated Resolved Time C. difficile 10/20/2018 10/20/2018 documented as of this encounter
--- OUTSIDE RECORDS SUMMARY | 2024-10-06 03:31 | XMS_ITS | Encounter Summary ---
Author Organization [facility] Address [address] [place] [address]. [place] [address] [place] [address] Care Team Providers Care Store Lead Name Role Phone Unavailable Primary Care Provider Unavailabl e Encounter Details Date Type Department Care Team (Late st Contact Info) Description 05/21/2001 Abstract [facility] CONVERSION [address] [place] [address] , Generic Conversion, Social History Tobacco Use Types Packs/Day Years Used Date Smoking Tobacco: Never Assessed Comments Unknown Sex and Gender Information Value Date Recorded Sex Assigned at Not on file Legal Sex Female 9:48 PM STYLIST ASSISTANT Gender Identity Not on file Sexual Orientation Not on file documented as of this encounter Plan of Treatment Not on file documented as of this encounter Visit Diagnoses Not on filedocumented in this encounter Additional Health Concerns Infection Onset Date Last Indicated Resolved Time C. difficile 10/20/2018 10/20/2018 documented as of this encounter
--- OUTSIDE RECORDS SUMMARY | 2024-10-06 03:31 | XMS_ITS | Encounter Summary ---
Author Organization [facility] Address [address] [place] [address]. 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 difficile 10/20/2018 10/20/2018 documented as of this encounter
--- OUTSIDE RECORDS SUMMARY | 2024-10-06 03:31 | XMS_ITS | Encounter Summary ---
Author Organization [facility] Address [address] [place] [address]. [place] [address] [place] [address] Care Team Providers Care Attic Blower Name Role Phone Unavailable Primary Care Provider Unavailabl e Encounter Details Date Type Department Care Team (Late st Contact Info) Description 08/10/2001 Abstract [facility] CONVERSION [address] [place] [address] , Generic Conversion, Social History Tobacco Use Types Packs/Day Years Used Date Smoking Tobacco: Never Assessed Comments Unknown Sex and Gender Information Value Date Recorded Sex Assigned at Not on file Legal Sex Female 9:48 PM MISSION COMMANDER Gender Identity Not on file Sexual Orientation Not on file documented as of this encounter Plan of Treatment Not on file documented as of this encounter Visit Diagnoses Not on filedocumented in this encounter Additional Health Concerns Infection Onset Date Last Indicated Resolved Time C. difficile 10/20/2018 10/20/2018 documented as of this encounter
--- OUTSIDE RECORDS SUMMARY | 2024-10-06 03:31 | XMS_ITS | Encounter Summary ---
Author Organization [facility] Address [address] [place] [address]. [place] [address] [place] [address] Care Team Providers Care Grain Roaster Name Role Phone Unavailable Primary Care Provider Unavailabl e Encounter Details Date Type Department Care Team (Late st Contact Info) Description 08/22/2007 Abstract [place] [facility] [facility] [place] [address] Pranay Velasquez MD [address], [place] [id number] Social History Tobacco Use Types Packs/Day Years Used Date Smoking Tobacco: Never Assessed Comments Unknown Sex and Gender Information Value Date Recorded Sex Assigned at Not on file Legal Sex Female 9:48 PM CARRIAGE SETTER Gender Identity Not on file Sexual Orientation Not on file documented as of this encounter Plan of Treatment Not on file documented as of this encounter Visit Diagnoses Not on filedocumented in this encounter Additional Health Concerns Infection Onset Date Last Indicated Resolved Time C. difficile 10/20/2018 10/20/2018 documented as of this encounter
--- OUTSIDE RECORDS SUMMARY | 2024-10-06 03:31 | XMS_ITS | Encounter Summary ---
Author Organization [facility] Address [address] [place] [address]. [place] [address] [place] [address] Care Team Providers Care Tape Cutting Machine Operator Name Role Phone Unavailable Primary Care Provider Unavailabl e Encounter Details Date Type Department Care Team (Late st Contact Info) Description 11/02/2000 Abstract [facility] CONVERSION [address] [place] [address] , Generic Conversion, Social History Tobacco Use Types Packs/Day Years Used Date Smoking Tobacco: Never Assessed Comments Unknown Sex and Gender Information Value Date Recorded Sex Assigned at Not on file Legal Sex Female 9:48 PM MANAGER DIGITAL Gender Identity Not on file Sexual Orientation Not on file documented as of this encounter Plan of Treatment Not on file documented as of this encounter Visit Diagnoses Not on filedocumented in this encounter Additional Health Concerns Infection Onset Date Last Indicated Resolved Time C. difficile 10/20/2018 10/20/2018 documented as of this encounter
--- OUTSIDE RECORDS SUMMARY | 2024-10-06 03:31 | XMS_ITS | Encounter Summary ---
Author Organization [facility] Address [address] [place] [address]. 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 difficile 10/20/2018 10/20/2018 documented as of this encounter
--- OUTSIDE RECORDS SUMMARY | 2024-10-06 03:31 | XMS_ITS | Encounter Summary ---
Author Organization [facility] Address [address] [place] [address]. 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 difficile 10/20/2018 10/20/2018 documented as of this encounter
--- OUTSIDE RECORDS SUMMARY | 2024-10-06 03:31 | XMS_ITS | Encounter Summary ---
Author Organization [facility] Address [address] [place] [address]. 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 difficile 10/20/2018 10/20/2018 documented as of this encounter
--- OUTSIDE RECORDS SUMMARY | 2024-10-06 03:31 | XMS_ITS | Encounter Summary ---
Author Organization [facility] Address [address] [place] [address]. [place], [place] [address] [place] [address] Care Team Providers Care Cribber Name Role Phone Unavailable Primary Care Provider Unavailabl e Encounter Details Date Type Department Care Team (Late st Contact Info) Description 1997 Abstract [facility] [address] [place] [address] , Generic Conversion, Social History Tobacco Use Types Packs/Day Years Used Date Smoking Tobacco: Never Assessed Comments Unknown Sex and Gender Information Value Date Recorded Sex Assigned at Not on file Legal Sex Female 9:48 PM RESIDENT SERVICES SUPERVISOR Gender Identity Not on file Sexual Orientation Not on file documented as of this encounter Plan of Treatment Not on file documented as of this encounter Visit Diagnoses Not on filedocumented in this encounter Additional Health Concerns Infection Onset Date Last Indicated Resolved Time C. difficile 10/20/2018 10/20/2018 documented as of this encounter
--- OUTSIDE RECORDS SUMMARY | 2024-10-06 03:31 | XMS_ITS | Encounter Summary ---
Author Organization [facility] Address [address] [place] [address]. [place] [address] [place] [address] Care Team Providers Care Surgery Consultant Name Role Phone Unavailable Primary Care Provider Unavailabl e Encounter Details Date Type Department Care Team (Late st Contact Info) Description 11/11/2001 Abstract [facility] [address] [place] [address] , Generic Conversion, Social History Tobacco Use Types Packs/Day Years Used Date Smoking Tobacco: Never Assessed Comments Unknown Sex and Gender Information Value Date Recorded Sex Assigned at Not on file Legal Sex Female 9:48 PM MATERIAL ATTENDANT Gender Identity Not on file Sexual Orientation Not on file documented as of this encounter Plan of Treatment Not on file documented as of this encounter Visit Diagnoses Not on filedocumented in this encounter Additional Health Concerns Infection Onset Date Last Indicated Resolved Time C. difficile 10/20/2018 10/20/2018 documented as of this encounter
--- OUTSIDE RECORDS SUMMARY | 2024-10-06 03:31 | XMS_ITS | Encounter Summary ---
Author Organization [facility] Address [address] [place] [address]. 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 difficile 10/20/2018 10/20/2018 documented as of this encounter
--- OUTSIDE RECORDS SUMMARY | 2024-10-06 03:31 | XMS_ITS | Encounter Summary ---
Author Organization [facility] Address [address] [place] [address]. [place] [address] [place] [address] Care Team Providers Care Drawer Hardware Worker Name Role Phone Unavailable Primary Care Provider Unavailabl e Encounter Details Date Type Department Care Team (Late st Contact Info) Description 05/31/2006 Abstract [facility] [address] [place] [address] [place] [address] [place] [address] [place] [address] Social History Tobacco Use Types Packs/Day Years Used Date Smoking Tobacco: Never Assessed Comments Unknown Sex and Gender Information Value Date Recorded Sex Assigned at Not on file Legal Sex Female 9:48 PM STUDENT SERVICES REPRESENTATIVE Gender Identity Not on file Sexual Orientation Not on file documented as of this encounter Plan of Treatment Not on file documented as of this encounter Visit Diagnoses Not on filedocumented in this encounter Additional Health Concerns Infection Onset Date Last Indicated Resolved Time C. difficile 10/20/2018 10/20/2018 documented as of this encounter
--- OUTSIDE RECORDS SUMMARY | 2024-10-06 03:31 | XMS_ITS | Encounter Summary ---
Author Organization [facility] Address [address] [place] [address]. [place] [address] [place] [address] Care Team Providers Care Chemical Analytical Sampler Name Role Phone Unavailable Primary Care Provider Unavailabl e Encounter Details Date Type Department Care Team (Late st Contact Info) Description 10/20/[address] [facility] [address] [place] [address] Jerry Peters MD [address] [place], [place] [id number] Social History Tobacco Use Types Packs/Day Years Used Date Smoking Tobacco: Never Assessed Comments Unknown Sex and Gender Information Value Date Recorded Sex Assigned at Not on file Legal Sex Female 9:48 PM TUB CHUCKER Gender Identity Not on file Sexual Orientation Not on file documented as of this encounter Plan of Treatment Not on file documented as of this encounter Visit Diagnoses Not on filedocumented in this encounter Additional Health Concerns Infection Onset Date Last Indicated Resolved Time C. difficile 10/20/2018 10/20/2018 documented as of this encounter
--- OUTSIDE RECORDS SUMMARY | 2024-10-06 03:31 | XMS_ITS | Encounter Summary ---
Author Organization [facility] Address [address] [place] [address]. [place] [address] [place] [address] Care Team Providers Care Physician/Allergy/Immunology Name Role Phone Unavailable Primary Care Provider Unavailabl e Encounter Details Date Type Department Care Team (Late st Contact Info) Description 08/16/1998 Abstract [facility] [address] [place] [address] , Generic Conversion, Social History Tobacco Use Types Packs/Day Years Used Date Smoking Tobacco: Never Assessed Comments Unknown Sex and Gender Information Value Date Recorded Sex Assigned at Not on file Legal Sex Female 9:48 PM SR VICE PRESIDENT Gender Identity Not on file Sexual Orientation Not on file documented as of this encounter Plan of Treatment Not on file documented as of this encounter Visit Diagnoses Not on filedocumented in this encounter Additional Health Concerns Infection Onset Date Last Indicated Resolved Time C. difficile 10/20/2018 10/20/2018 documented as of this encounter
--- OUTSIDE RECORDS SUMMARY | 2024-10-06 03:31 | XMS_ITS | Encounter Summary ---
Author Organization [facility] Address [address] [place] [address]. 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 difficile 10/20/2018 10/20/2018 documented as of this encounter
--- OUTSIDE RECORDS SUMMARY | 2024-10-06 03:31 | XMS_ITS | Encounter Summary ---
Author Organization [facility] Address [address] [place] [address]. [place] [address] [place] [address] Care Team Providers Care Greenhouse Florist Name Role Phone Unavailable Primary Care Provider Unavailabl e Encounter Details Date Type Department Care Team (Late st Contact Info) Description 07/06/2001 Abstract [facility] [address] [place] [address] , Generic Conversion, Social History Tobacco Use Types Packs/Day Years Used Date Smoking Tobacco: Never Assessed Comments Unknown Sex and Gender Information Value Date Recorded Sex Assigned at Not on file Legal Sex Female 9:48 PM SPOOL FIXER Gender Identity Not on file Sexual Orientation Not on file documented as of this encounter Plan of Treatment Not on file documented as of this encounter Visit Diagnoses Not on filedocumented in this encounter Additional Health Concerns Infection Onset Date Last Indicated Resolved Time C. difficile 10/20/2018 10/20/2018 documented as of this encounter
--- OUTSIDE RECORDS SUMMARY | 2024-10-06 03:31 | XMS_ITS | Encounter Summary ---
Author Organization [facility] Address [address] [place] [address]. [place] [address] [place] [address] Care Team Providers Care Timber Appraiser Name Role Phone Unavailable Primary Care Provider Unavailabl e Encounter Details Date Type Department Care Team (Late st Contact Info) Description 03/28/2004 Abstract [facility] [address] [place] [address] , Generic Conversion, Social History Tobacco Use Types Packs/Day Years Used Date Smoking Tobacco: Never Assessed Comments Unknown Sex and Gender Information Value Date Recorded Sex Assigned at Not on file Legal Sex Female 9:48 PM LEAK GANG SUPERVISOR Gender Identity Not on file Sexual Orientation Not on file documented as of this encounter Plan of Treatment Not on file documented as of this encounter Visit Diagnoses Not on filedocumented in this encounter Additional Health Concerns Infection Onset Date Last Indicated Resolved Time C. difficile 10/20/2018 10/20/2018 documented as of this encounter
--- OUTSIDE RECORDS SUMMARY | 2024-10-06 03:31 | XMS_ITS | Encounter Summary ---
Author Organization [facility] Address [address] [place] [address]. 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 difficile 10/20/2018 10/20/2018 documented as of this encounter
--- OUTSIDE RECORDS SUMMARY | 2024-10-06 03:31 | XMS_ITS | Encounter Summary ---
Author Organization [facility] Address [address] [place] [address]. [place] [address] [place] [address] Care Team Providers Care Fertilizer Mixer Name Role Phone Unavailable Primary Care Provider Unavailabl e Encounter Details Date Type Department Care Team (Late st Contact Info) Description 10/10/[address] 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 difficile 10/20/2018 10/20/2018 documented as of this encounter
--- OUTSIDE RECORDS SUMMARY | 2024-10-06 03:31 | XMS_ITS | Encounter Summary ---
Author Organization [facility] Address [address] [place] [address]. [place] [address] [place] [address] Care Team Providers Care Chief Design Engineer Name Role Phone Unavailable Primary Care Provider Unavailabl e Encounter Details Date Type Department Care Team (Late st Contact Info) Description 03/17/2001 Abstract [facility] [address] [place] [address] Social History Tobacco Use Types Packs/Day Years Used Date Smoking Tobacco: Never Assessed Comments Unknown Sex and Gender Information Value Date Recorded Sex Assigned at Not on file Legal Sex Female 9:48 PM PIPE BOWL PAINT TRIMMER Gender Identity Not on file Sexual Orientation Not on file documented as of this encounter Plan of Treatment Not on file documented as of this encounter Visit Diagnoses Not on filedocumented in this encounter
--- OUTSIDE RECORDS SUMMARY | 2024-10-06 03:31 | XMS_ITS | Encounter Summary ---
Author Organization [facility] Address [address] [place] [address]. [place] [address] [place] [address] Care Team Providers Care Financial Assistant Name Role Phone Unavailable Primary Care Provider Unavailabl e Encounter Details Date Type Department Care Team (Late st Contact Info) Description 06/03/2002 Abstract [facility] [address] [place] [address] , Generic Conversion, Social History Tobacco Use Types Packs/Day Years Used Date Smoking Tobacco: Never Assessed Comments Unknown Sex and Gender Information Value Date Recorded Sex Assigned at Not on file Legal Sex Female 9:48 PM SENIOR LINUX UNIX ENGINEER Gender Identity Not on file Sexual Orientation Not on file documented as of this encounter Plan of Treatment Not on file documented as of this encounter Visit Diagnoses Not on filedocumented in this encounter Additional Health Concerns Infection Onset Date Last Indicated Resolved Time C. difficile 10/20/2018 10/20/2018 documented as of this encounter
--- OUTSIDE RECORDS SUMMARY | 2024-10-06 03:31 | XMS_ITS | Encounter Summary ---
Author Organization [facility] Address [address] [place] [address]. 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 difficile 10/20/2018 10/20/2018 documented as of this encounter
--- OUTSIDE RECORDS SUMMARY | 2024-10-06 03:31 | XMS_ITS | Encounter Summary ---
Author Organization [facility] Address [address] [place] [address]. [place] [address] [place] [address] Care Team Providers Care Offal Worker Name Role Phone Unavailable Primary Care Provider Unavailabl e Encounter Details Date Type Department Care Team (Late st Contact Info) Description 09/07/2001 Abstract [facility] [address] [place] [address] , Generic Conversion, Social History Tobacco Use Types Packs/Day Years Used Date Smoking Tobacco: Never Assessed Comments Unknown Sex and Gender Information Value Date Recorded Sex Assigned at Not on file Legal Sex Female 9:48 PM ADJUNCT FACULTY MATHEMATICS DEPARTMENT Gender Identity Not on file Sexual Orientation Not on file documented as of this encounter Plan of Treatment Not on file documented as of this encounter Visit Diagnoses Not on filedocumented in this encounter Additional Health Concerns Infection Onset Date Last Indicated Resolved Time C. difficile 10/20/2018 10/20/2018 documented as of this encounter
--- OUTSIDE RECORDS SUMMARY | 2024-10-06 03:31 | XMS_ITS | Encounter Summary ---
Author Organization [facility] Address [address] [place] [address]. [place], [place] [address] [place] [address] Care Team Providers Care Public Welfare Worker Name Role Phone Unavailable Primary Care Provider Unavailabl e Encounter Details Date Type Department Care Team (Late st Contact Info) Description 06/28/2005 Abstract [facility] [address] [facility] [place] [address] , Nazario Cornelius MD Social History Tobacco Use Types Packs/Day Years Used Date Smoking Tobacco: Never Assessed Comments Unknown Sex and Gender Information Value Date Recorded Sex Assigned at Not on file Legal Sex Female 9:48 PM POULTRY PICKING MACHINE TENDER Gender Identity Not on file Sexual Orientation Not on file documented as of this encounter Plan of Treatment Not on file documented as of this encounter Visit Diagnoses Not on filedocumented in this encounter Additional Health Concerns Infection Onset Date Last Indicated Resolved Time C. difficile 10/20/2018 10/20/2018 documented as of this encounter
--- OUTSIDE RECORDS SUMMARY | 2024-10-06 03:31 | XMS_ITS | Encounter Summary ---
Author Organization [facility] Address [address] [place] [address]. [place] [address] [place] [address] Care Team Providers Care Raw Products Director Name Role Phone Unavailable Primary Care Provider Unavailabl e Encounter Details Date Type Department Care Team (Late st Contact Info) Description 10/16/2000 Abstract [facility] [address] [place] [address] , Generic Conversion, Social History Tobacco Use Types Packs/Day Years Used Date Smoking Tobacco: Never Assessed Comments Unknown Sex and Gender Information Value Date Recorded Sex Assigned at Not on file Legal Sex Female 9:48 PM MILL FEEDER Gender Identity Not on file Sexual Orientation Not on file documented as of this encounter Plan of Treatment Not on file documented as of this encounter Visit Diagnoses Not on filedocumented in this encounter Additional Health Concerns Infection Onset Date Last Indicated Resolved Time C. difficile 10/20/2018 10/20/2018 documented as of this encounter
--- OUTSIDE RECORDS SUMMARY | 2024-10-06 03:31 | XMS_ITS | Encounter Summary ---
Author Organization [facility] Address [address] [place] [address]. [place] [address] [place] [address] Care Team Providers Care Associate Programmer Name Role Phone Unavailable Primary Care Provider Unavailabl e Encounter Details Date Type Department Care Team (Late st Contact Info) Description 12/07/2001 Abstract [facility] [address] [place] [address] , Generic Conversion, Social History Tobacco Use Types Packs/Day Years Used Date Smoking Tobacco: Never Assessed Comments Unknown Sex and Gender Information Value Date Recorded Sex Assigned at Not on file Legal Sex Female 9:48 PM DIRECTOR PATIENT FINANCIAL SERVICES Gender Identity Not on file Sexual Orientation Not on file documented as of this encounter Plan of Treatment Not on file documented as of this encounter Visit Diagnoses Not on filedocumented in this encounter Additional Health Concerns Infection Onset Date Last Indicated Resolved Time C. difficile 10/20/2018 10/20/2018 documented as of this encounter
--- OUTSIDE RECORDS SUMMARY | 2024-10-06 03:39 | XMS_ITS | Referral Summary ---
Author Organization [facility] Address [address] [place] [address] Care Team Providers Care Pot Tender Name Role Phone No, Physician Primary Care Provider [phone] Encounters Date Type Department Care Team Description 09/30/2024 Encounter [facility] [address] [place] [address] 09/25/2024 Encounter [facility] [address] [place] [address] 07/29/2024 2:42 AM CDT - 09/22/2024 11:26 AM PASTA MAKER Hospital Encounter [address] [address] Anastasia Amaro MD Bligard, MD Sumanth Fitzgerald Julia Ellen, MD Goodman, Sara Olsen MD Preeclampsia, unspecified trimester (Primary Dx); Twin , unable to determine number of placenta and number of amniotic sacs, antepartum, unspecified trimester [O30.099]; 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 Discharge Disposition: Discharge to home or self care 09/19/2024 1:57 PM PASTA MAKER Anesthesia Event [address] [address] Sidra Ann MD Bailey, Cody Allen, MD 09/19/2024 1:30 PM PASTA MAKER - 09/19/2024 4:05 PM PASTA MAKER Surgery [address] [address] Josefina Peter MD SECTION 09/15/2024 9:00 AM PASTA MAKER Ancillary Procedure [address] [address] 09/08/2024 10:00 AM PASTA MAKER Ancillary Procedure [address] [address] 08/24/2024 12:30 PM PASTA MAKER Ancillary Procedure [address] [address] 08/16/2024 8:15 AM PASTA MAKER Ancillary Procedure [address] [address] 08/09/2024 9:30 AM PASTA MAKER Ancillary Procedure [address] [address] 08/05/2024 Telephone [facility] [address] [facility] [address] [place] [address] Dia Mantilla MD 08/03/2024 Telephone [facility] [address] [facility] [address] [place] [address] Dia Mantilla MD admission 08/03/2024 11:34 AM CDT - 08/03/2024 11:59 PM CDT Hospital Encounter [facility] Pediatric Cardiology [facility] 2nd Floor [address] [place] [address] Discharge Disposition: Discharge to home or self care 08/03/2024 11:34 AM CDT - 08/03/2024 11:59 PM CDT Hospital Encounter [facility] Pediatric Cardiology [facility] 2nd Floor [address] [place] [address] Discharge Disposition: Discharge to home or self care 08/02/2024 9:15 AM CDT Ancillary Procedure [facility] [address] [address] 07/29/2024 3:15 PM CDT - 07/29/2024 11:59 PM CDT Hospital Encounter [facility] [phone] Discharge Disposition: Discharge to home or self care 07/28/2024 9:32 PM CDT - 07/29/2024 1:41 AM CDT Hospital Encounter [facility] [address] [place] [address] Dia Mantilla MD Discharge Disposition: Discharge to a critical access hospital 07/28/2024 Telephone [facility] [address] [facility] [address] [place] [address] Dia Mantilla MD 07/27/2024 Orders Only [facility] at [address] [address] Dakota, Francine Twin , unable to determine number of placenta and number of amniotic sacs, antepartum, unspecified trimester (Primary Dx); BMI 40.0-44.9, adult (HCC); Maternal varicella, non-immune; Rh negative state in antepartum period; Long-term current use of antidepressant; Anxiety disorder, unspecified type 07/27/2024 3:59 PM CDT - 07/27/2024 11:59 PM CDT Hospital Encounter [address] [address] Discharge Disposition: Discharge to home or self care 07/27/2024 2:30 PM CDT Office Visit [facility] Maternal Medicine at [address] [address] Byron Tellez MD Unspecified high-risk (Primary Dx) 07/27/2024 12:18 PM CDT - 07/27/2024 11:59 PM CDT Hospital Encounter [facility] Maternal Medicine [facility] [id number] [place] [address] High risk , antepartum; Monochorionic diamniotic twin , antepartum Discharge Disposition: Discharge to home or self care 07/13/2024 2:30 PM CDT Office Visit [facility] Maternal Medicine at [address] [place] [address] Nancy Be NP Unspecified high-risk (Primary Dx) 07/13/2024 11:25 AM CDT - 07/13/2024 11:59 PM CDT Hospital Encounter [facility] Maternal Medicine [facility] [address] [place] [address] High risk , antepartum; Monochorionic diamniotic twin , antepartum Discharge Disposition: Discharge to home or self care 07/12/2024 Telephone [facility] [address], [place] [address] Dia Mantilla MD Test Results 07/12/2024 10:55 AM CDT Lab [address] Encounter for supervision of normal first in first trimester 07/12/2024 10:00 AM CDT Ancillary Procedure [address], [place] [address] Ultrasound scan done for inability to hear heart tones 07/12/2024 10:30 AM CDT Routine [address], [place] [address] Dia Mantilla MD Twin , unable to determine number of placenta and number of amniotic sacs, antepartum, unspecified trimester (Primary Dx); Encounter for supervision of normal first in first trimester; 24 weeks gestation of from Last 3 Months Allergies No known active allergies Medications no115/iron/fol ic acid ( 19 ORAL) Take by mouth Active ibuprofen (ADVIL,MOTRIN) 600 mg tabletIndicati ons:Cramps Take 1 tablet (600 mg total) by mouth every 6 (six) hours as needed for pain 90 tablet 09/22/20 24 Active acetaminophen 500 mg capsuleIndicat ions:Pain Take 2 capsules (1,000 mg total) by mouth every 6 (six) hours as needed for pain 90 tablet 09/22/20 24 Active cyclobenzaprin e (FLEXERIL) 5 mg tablet Take 1 tablet (5 mg total) by mouth 2 (two) times a day as needed for muscle spasms 30 tablet 09/22/20 24 Active ferrous sulfate 325 mg (65 mg of elemental iron) tabletIndicati ons:Iron Deficiency Anemia Take 1 tablet (325 mg total) by mouth daily with breakfast 30 tablet 2 09/22/20 24 025 Active lidocaine (LIDODERM) 5 % Place 2 patches on the skin daily Remove & discard patch within 12 hours or as directed by MD. 10 patch 09/22/20 24 025 Active polyethylene glycol (MIRALAX) 17 gram/dose bulk powder Take 17 g by mouth daily as needed (constipation ) 289 g 09/22/20 Active oxyCODONE (ROXICODONE) 5 mg immediate release tabletIndicati ons:Pain Take 1 tablet (5 mg total) by mouth every 4 (four) hours as needed for pain 15 tablet 09/22/20 24 Active NIFEdipine (PROCARDIA XL/ADALAT CC) 60 mg 24 hr tablet Take 2 tablets (120 mg total) by mouth daily 60 tablet 2 09/23/20 24 025 Active labetaloL (NORMODYNE,TRA NDATE) 300 mg tablet Take 1 tablet (300 mg total) by mouth 3 (three) times a day 90 tablet 2 09/22/20 24 025 Active aspirin 81 mg chewable tablet Take 1 tablet (81 mg total) by mouth daily 30 tablet 11 04/15/20 24 024 Discontinued(St op Taking at Discharge) metoclopramide (REGLAN) 10 mg tablet Take 1 tablet (10 mg total) by mouth 4 (four) times a day as needed (nausea) 30 tablet 1 05/31/20 24 024 Discontinued(St op Taking at Discharge) cholecalcifero l (VITAMIN D-3) 2000 unit tablet Take 1 tablet (2,000 Units total) by mouth daily 30 tablet 11 07/12/20 24 024 Discontinued(St op Taking at Discharge) progesterone (PROMETRIUM) 200 mg capsule Take 1 capsule (200 mg total) by mouth daily 30 capsule 11 07/13/20 24 024 Discontinued(St op Taking at Discharge) ibuprofen (ADVIL,MOTRIN) 400 mg tablet Take 1 tablet by mouth every 6 hours every other day on odd calendar days 90 tablet 2 07/13/20 24 024 Discontinued(St op Taking at Discharge) labetaloL (NORMODYNE,TRA NDATE) 300 mg tablet Take 1 tablet (300 mg total) by mouth 3 (three) times a day 90 tablet 11 09/22/20 24 024 Discontinued Active Problems Problem Noted Date Diagnosed Date care following delivery 09/04 Overview (09/22/2024): # ID: Afebrile. No signs/symptoms of infection. #VZV equivocal: varivax given 09/21. #SSppx: Keflex/Flagyl 500mg q8h for 48h. # Heme: QBL 800 mL. Hemodynamically stable. Pre-op Hb 11.6 > POD1 Hb 9.7. Start on PO iron. #Rh negative: s/p rhogam on 08/01. Rh positive. Rhogam given 09/20. # CV/Pulm: Pre-eclampsia with severe features - s/p magnesium sulfate running at 2g/hr for a total of 24 hours . Blood pressures well controlled on N120XL and L695VNN. CBC/CMP WNL, UPC 0.1. Enrolled in remote blood pressure monitoring. Received text. #Sinus tachycardia, intermittent: Likely secondary to reflex tachycardia from nifedipine. Thyroid studies normal. Elevated D-dimer with CTPE negative. EKG PRN. #Chronic headaches: Well controlled on magnesium and riboflavin. # GI/: Tolerating PO. Voiding spontaneously. # Pain: controlled with above regimen. Enrolled in PANDA: randomized to NSAIDs group. #depression/anxiety: Stable on no meds. S/p SW pp. # MOC: s/p nexplanon placement on 09/20/24. # MOF: . Urine drug screen not indicated. Patient informed of results: N/A. # Post DVT prophylaxis: The patient has the following MAJOR risk factors BMI >/= 40, preeclampsia with IUGR, and prolonged labor OR antepartum admission >72h immediately prior to delivery and the following MINOR risk factors delivery, preeclampsia, and multiple gestation . enoxaparin 40 mg BID ordered for VTE prophylaxis. # Disposition: Follow up task sent to [facility] scheduling pool for appointments in 2 and 6 weeks. They are enrolled in remote blood pressure monitoring for their BP check. Desires discharge home today. Service Coverage These phones are service phones and carried 27/04 in house: R1 (first call) [phone] R1 alt (second call) [phone] R4 (Chief) [phone] 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 08/29/2024 Preeclampsia, unspecified trimester 07/29/2024 Overview (09/19/2024): Dinora Bee is a 29 y.o. female at 33w6d who is dated by 1st trimester ultrasound and is being admitted for a scheduled primary due to preeclampsia with severe features . Admit to L&D: Labs: CBC 11.6 and T&S active from 09/08 . For primary CS . FWB: Continuous monitoring. Reactive NST. ID: 3rd trimester HIV (>28 wga) negative on 08/13. GBS negative on 09/03 . RPR on admission: negative. History of genital HSV or HSV 1/2 seropositivity: No. Membrane Status: intact. Indications for UDS: none. Verbal consent obtained for UDS: Not indicated. MOF: Plans to breastfeed. Urine drug screen not indicated. Patient informed of results: N/A. MOC: Plans to use Nexplanon for contraception. Pain management: CSE to be placed in the OR. Enrolled in PANDA study: randomized to NSAIDs group. Post DVT prophylaxis: The patient has the following MAJOR risk factors BMI >/= 40, preeclampsia with IUGR, and prolonged labor OR antepartum admission >72h immediately prior to delivery and the following MINOR risk factors delivery and preeclampsia. enoxaparin 40 mg BID will be ordered for VTE prophylaxis . #PreEwSF: s/p APU. Diagnosed based on SRBPs requiring spotting. CBC/CMP wnl, UPC 0.1. APLS work up negative. Blood pressures well controlled on N120XL and S161NKL. Magnesium for seizure prophylaxis. #sinus tachycardia, intermittent: Likely secondary to reflex tachycardia from nifedipine. Thyroid studies normal. Elevated D-dimer with CTPE negative. EKG PRN. #Chronic headaches: Well controlled on magnesium and riboflavin. #Shay twins: Twin 2 presenting twin with 33% discordance. For pCS. #sFGR with normal UAD of Twin 1: #Aortic dilation and lateral ventriculomegaly of Twin 2: s/p NICU and peds cards consult. Plan for echo. #depression/anxiety: Stable on no meds. For SW pp. #MO: BMI 47 #VZV equivocal: for varivax pp. #Rh negative: s/p rhogam on 08/01. For rhogam work up pp Rh negative state in antepartum period Overview (06/20/2024): Will plan for rhogam Maternal varicella, non-immune 05/23/2024 Overview (05/23/2024): 05/23/24-varicella nonimmune. Will plan to vaccinate Long-term current use of antidepressant 04/15/20 IBS (irritable bowel syndrome) 04/15/2024 Assessment & Plan (04/15/2024 5:51 PM CDT): She is controlled on the nortriptyline Her pcp gives it to her We discussed that it has not been linked to defects, but withdrawal is a possibility We dicussed taking the smallest dose possible or getting off We discussed the is usually constipating and her bowels maybe more normal with She will talk to her pcp Anxiety disorder 04/15/2024 Assessment & Plan (04/15/2024 3:31 PM CDT): We discussed that this antidepressant is not thought to cause defects. Some people recommend stopping in the third trimester as the babies whose moms take it through delivery seem to be more jittery as if the were withdrawaling from it. This is typically managed by swaddling and comforting by the family. The hospital here has seen an increase in the number of babies whose mothers have been on certain antidepressants not want to take the first breaths. Because of that we now have respiratory therapy at all deliveries where antidepressants have been used, just as a precaution. BMI 40.0-44.9, adult 04/15/2024 Assessment & Plan (04/15/2024 5:51 PM CDT): She will require serial ultrasounds and NSTs in the 3rd trimester to hemoglobin A1c We did not discuss weight gain during and will need to do so at her next visit Twin , unable to de termine number of placenta and number of amniotic sacs, antepartum, unspecified trimester 03/28/2024 Overview (05/31/2024): 03/28/2024-unable to tell the chronicity. MONO/DI 04/27/24- negative cell free dna testing and carrier screening 05/31/24- early signs of TTS Assessment & Plan (04/15/2024 5:56 PM CDT): To ultrasound at her next appointment to see if the chronicity can not be determined. Will plan to do ultrasound prior to each visit for heart tone We discussed that if she is not that I will be recommending MFM consult When the patient's found out that that would be in [place] he used an expletive to express that they would not be doing that Resolved Problems Problem Noted Date Diagnosed Date Resolved Date Abdominal pain 07/06/2012 04/15/2024 Immunizations Name Administration Dates Next Due Influenza, Trivalent, Preservative Free, Intramu scular 07/12/2024 RSV, Bivalent, Protein Subun it Rsvpref, Diluent (Abrysvo) 09/05/2024 Tdap 08/09/2024 Varicella 09/21/2024 Social History Tobacco Use Types Packs/Day Years Used Date Smoking Tobacco: Never Smokeless Tobacco: Never Tobacco Cessation:Counseling Given: Not Answered [facility] Utilities Answer Date Recorded In the past 12 months has e [employer], [employer], or water [employer] threatened to shut off services in your home? No 07/29/2024 Humiliation, Afraid, Rape, and Kick questionnair e Answer Date Recorded Within the last year, have y ou been afraid of your partner or ex-partner? No 04/15/2024 Emotionally Abused Not on file 04/15/2024 Within the last year, have y ou been kicked, hit, slapped, or otherwise physically hurt by your partner or ex-partner? No 04/15/2024 Within the last year, have y ou been raped or forced to have any kind of sexual activity by your partner or ex-partner? No 04/15/2024 Social Connection and Isolat ion Panel [NHANES] Answer Date Recorded In a typical week, how many times do you talk on the phone with family, friends, or neighbors? More than three times a week 07/29/2024 How often do you get togethe r with friends or relatives? More than three times a week 07/29/2024 How often do you attend chur or caodaism services? Never 07/29/2024 Do you belong to any clubs o r organizations such as taoist groups, unions, fraternal or athletic groups, or school groups? No 07/29/2024 How often do you attend meet ings of the clubs or organizations you belong to? Never 07/29/2024 Are you , , di vorced, , never , or living with a partner? 07/29/2024 AUDIT-C Answer Date Recorded Q1: How often do you have a drink containing alcohol? Never 07/28/2024 Q2: How many drinks containi ng alcohol do you have on a typical day when you are drinking? Patient does not drink Q3: How often do you have si x or more drinks on one occasion? Never 07/28/2024 Overall Financial Resource Strain (CARDIA) Answe r Date Recorded How hard is it for you to pa y for the very basics like food, housing, medical care, and heating? Not very hard 07/29/2024 PHQ-2 Answer Date Recorded PHQ-2 Total Score (If total score is 3 or more points, staff should administer the PHQ-9) 0 07/28/2024 [facility] - Occupational Stress Questionnaire Answer Date Recorded Do you feel stress - tense, restless, nervous, or anxious, or unable to sleep at night because your mind is troubled all the time - these days? Only a little 07/28/2024 Exercise Vital Sign Answer Date Recorde d On average, how many days pe r week do you engage in moderate to strenuous exercise (like a brisk walk)? 3 days 07/28/2024 On average, how many minutes do you engage in exercise at this level? 60 min 07/28/2024 Hunger Vital Sign Answer Date Recorded Within the past 12 months, y ou worried that your food would run out before you got the money to buy more. Never true 07/29/20 Within the past 12 months, t he food you bought just didn't last and you didn't have money to get more. Never true 07/29/2024 PRAPARE - Transportation Answer Date Re corded In the past 12 months, has l ack of transportation kept you from medical appointments or from getting medications? No 07/06 In the past 12 months, has l ack of transportation kept you from meetings, work, or from getting things needed for daily living? No 07/29/2024 Living[place] Depression Scale Answer Date Recorded Living[place] Depression Scale Total 8 07/12/2024 The thought of harming myself has occurred to me . Never 07/12/2024 Housing Stability Vital Sign Answer Devan e Recorded In the last 12 months, was t here a time when you were not able to pay the mortgage or rent on time? No 07/29/2024 In the past 12 months, how m any times have you moved where you were living? 1 07/29/2024 At any time in the past 12 m [facility], were you homeless or living in a halfway (including now)? No 07/29/2024 Personal Safety Answer Date Recorded Have you ever been in or are you currently in a harmful physical or emotional relationship or is someone making you feel afraid or unsafe? Denies 07/29/2024 Comments No Sex and Gender Information Value Date Recorded Sex Assigned at Not on file Legal Sex Female 2:19 AM PASTA MAKER Gender Identity Not on file Sexual Orientation Not on file Last Filed Vital Signs Vital Sign Reading Time Taken Comments Blood Pressure 138/84 09/22/2024 8:36 AM PASTA MAKER Pulse 90 09/22/2024 8:36 AM PASTA MAKER Temperature 36.6 ??C (97.9 ??F) 09/22/2024 8:36 AM CS T Respiratory Rate 17 09/22/2024 8:36 AM PASTA MAKER Oxygen Saturation 99% 09/22/2024 8:36 AM PASTA MAKER Inhaled Oxygen Concentration - - Weight 128.8 kg (284 lb) 08/04/2024 8:32 PM CDT Height 165.1 cm (5' 5 ) 08/04/2024 8:32 PM CDT Body Mass Index 47.26 08/04/2024 8:32 PM CDT Plan of Treatment Not on file Procedures Procedure Name Priority Date/Time Associated Diagnosis Comments BLEED SCREEN Timed 09/20/2024 4: 48 AM PASTA MAKER ABO/RH Timed 09/20/2024 4:48 AM PASTA MAKER CBC WITHOUT DIFFERENTIAL Routine 09/20/2024 4:48 AM PASTA MAKER RH IMMUNE GLOBULIN EVAL Timed 09/20/2024 4:48 AM PASTA MAKER SURGICAL PATHOLOGY Routine 09/19/2024 4: 06 PM PASTA MAKER ANESTHESIA EPIDURAL BLOCK Routine 09/19/2024 2:45 PM PASTA MAKER SECTION 09/19/2024 1:56 PM PASTA MAKER TIUP Case Notes PreE w/ SF and Multiple gestation EGFR Timed 09/18/2024 6:21 AM PASTA MAKER COMPREHENSIVE METABOLIC PANEL Timed 09/18/2024 6:21 AM PASTA MAKER CBC WITHOUT DIFFERENTIAL Timed 09/18/2024 6:21 AM PASTA MAKER TYPE AND SCREEN Timed 09/18/2024 6:21 AM PASTA MAKER NONSTRESS TEST Routine 09/17/2024 2:58 PM PASTA MAKER Preeclampsia, unspecified trimester 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 US OB FOLLOW UP IP Routine 09/15/2024 1:08 PM PASTA MAKER EGFR Timed 09/15/2024 6:17 AM PASTA MAKER COMPREHENSIVE METABOLIC PANEL Timed 09/15/2024 6:17 AM PASTA MAKER CBC WITHOUT DIFFERENTIAL Timed 09/15/2024 6:17 AM PASTA MAKER TYPE AND SCREEN Timed 09/15/2024 6:17 AM PASTA MAKER NONSTRESS TEST Routine 09/13/2024 5:10 PM PASTA MAKER Preeclampsia, unspecified trimester 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 EGFR Timed 09/12/2024 6:35 AM PASTA MAKER COMPREHENSIVE METABOLIC PANEL Timed 09/12/2024 6:35 AM PASTA MAKER CBC WITHOUT DIFFERENTIAL Timed 09/12/2024 6:35 AM PASTA MAKER TYPE AND SCREEN Timed 09/12/2024 6:35 AM PASTA MAKER EGFR Timed 09/09/2024 6:24 AM PASTA MAKER COMPREHENSIVE METABOLIC PANEL Timed 09/09/2024 6:24 AM PASTA MAKER CBC WITHOUT DIFFERENTIAL Timed 09/09/2024 6:24 AM PASTA MAKER TYPE AND SCREEN Timed 09/09/2024 6:24 AM PASTA MAKER US OB LIMITED IP Routine 09/08/2024 10:29 AM PASTA MAKER NONSTRESS TEST Routine 09/06/2024 8:38 PM PASTA MAKER Preeclampsia, unspecified trimester 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 EGFR Timed 09/06/2024 4:31 AM PASTA MAKER COMPREHENSIVE METABOLIC PANEL Timed 09/06/2024 4:31 AM PASTA MAKER CBC WITHOUT DIFFERENTIAL Timed 09/06/2024 4:31 AM PASTA MAKER TYPE AND SCREEN Timed 09/06/2024 4:31 AM PASTA MAKER GROUP B STREPTOCOCCUS CULTURE Routine 09/03/2024 10:29 AM PASTA MAKER EGFR Timed 09/03/2024 5:26 AM PASTA MAKER COMPREHENSIVE METABOLIC PANEL Timed 09/03/2024 5:26 AM PASTA MAKER CBC WITHOUT DIFFERENTIAL Timed 09/03/2024 5:26 AM PASTA MAKER TYPE AND SCREEN Timed 09/03/2024 5:26 AM PASTA MAKER ECG 12-LEAD Routine 09/02/2024 4:33 PM PASTA MAKER EGFR Timed 08/31/2024 6:20 AM PASTA MAKER COMPREHENSIVE METABOLIC PANEL Timed 08/31/2024 6:20 AM PASTA MAKER CBC WITHOUT DIFFERENTIAL Timed 08/31/2024 6:20 AM PASTA MAKER TYPE AND SCREEN Timed 08/31/2024 6:20 AM PASTA MAKER NONSTRESS TEST Routine 08/29/2024 2:32 PM PASTA MAKER Preeclampsia, unspecified trimester 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 NONSTRESS TEST Routine 08/28/2024 7:47 PM PASTA MAKER Preeclampsia, unspecified trimester 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 EGFR Timed 08/28/2024 6:00 AM PASTA MAKER COMPREHENSIVE METABOLIC PANEL Timed 08/28/2024 6:00 AM PASTA MAKER CBC WITHOUT DIFFERENTIAL Timed 08/28/2024 6:00 AM PASTA MAKER TYPE AND SCREEN Timed 08/28/2024 6:00 AM PASTA MAKER EGFR Timed 08/25/2024 6:19 AM PASTA MAKER COMPREHENSIVE METABOLIC PANEL Timed 08/25/2024 6:19 AM PASTA MAKER CBC WITHOUT DIFFERENTIAL Timed 08/25/2024 6:19 AM PASTA MAKER TYPE AND SCREEN Timed 08/25/2024 6:19 AM PASTA MAKER US OB FOLLOW UP IP Routine 08/24/2024 9:37 AM PASTA MAKER EGFR Timed 08/22/2024 6:02 AM PASTA MAKER COMPREHENSIVE METABOLIC PANEL Timed 08/22/2024 6:02 AM PASTA MAKER CBC WITHOUT DIFFERENTIAL Timed 08/22/2024 6:02 AM PASTA MAKER TYPE AND SCREEN Timed 08/22/2024 6:02 AM PASTA MAKER EGFR Timed 08/19/2024 6:25 AM PASTA MAKER COMPREHENSIVE METABOLIC PANEL Timed 08/19/2024 6:25 AM PASTA MAKER CBC WITHOUT DIFFERENTIAL Timed 08/19/2024 6:25 AM PASTA MAKER TYPE AND SCREEN Timed 08/19/2024 6:25 AM PASTA MAKER US OB LIMITED IP Routine 08/16/2024 8:35 AM PASTA MAKER ANTIBODY IDENTIFICATION Routine 08/16/2024 7:34 AM PASTA MAKER EGFR Timed 08/16/2024 6:15 AM PASTA MAKER THYROID FUNCTION CASCADE Routine 08/16/2024 6:15 AM PASTA MAKER COMPREHENSIVE METABOLIC PANEL Timed 08/16/2024 6:15 AM PASTA MAKER CBC WITHOUT DIFFERENTIAL Timed 08/16/2024 6:15 AM PASTA MAKER TYPE AND SCREEN Timed 08/16/2024 6:15 AM PASTA MAKER POCT GLUCOSE DEVICE Routine 08/14/2024 3 :06 PM PASTA MAKER ECG 12-LEAD Routine 08/13/2024 9:02 AM PASTA MAKER ANTIBODY IDENTIFICATION Routine 08/13/2024 7:42 AM PASTA MAKER EGFR Timed 08/13/2024 5:44 AM PASTA MAKER COMPREHENSIVE METABOLIC PANEL Timed 08/13/2024 5:44 AM PASTA MAKER CBC WITHOUT DIFFERENTIAL Timed 08/13/2024 5:44 AM PASTA MAKER TYPE AND SCREEN Timed 08/13/2024 5:44 AM PASTA MAKER RPR Routine 08/13/2024 5:44 AM PASTA MAKER HIV 1/2 ANTIBODY PLUS P24 ANTIGEN Routine 08/13/2024 5:44 AM PASTA MAKER GTT 50GM 1HR GESTATIONAL SCREEN Timed 08/12/2024 11:29 AM PASTA MAKER ANTIBODY IDENTIFICATION Routine 08/10/2024 7:02 AM PASTA MAKER EGFR Timed 08/10/2024 4:49 AM PASTA MAKER COMPREHENSIVE METABOLIC PANEL Timed 08/10/2024 4:49 AM PASTA MAKER CBC WITHOUT DIFFERENTIAL Timed 08/10/2024 4:49 AM PASTA MAKER TYPE AND SCREEN Timed 08/10/2024 4:49 AM PASTA MAKER US OB 14 WEEKS OR OVER IP Routine 08/09/2024 9:47 AM PASTA MAKER ANTIBODY IDENTIFICATION Routine 08/07/2024 6:51 AM PASTA MAKER EGFR Timed 08/07/2024 5:00 AM PASTA MAKER COMPREHENSIVE METABOLIC PANEL Timed 08/07/2024 5:00 AM PASTA MAKER CBC WITHOUT DIFFERENTIAL Timed 08/07/2024 5:00 AM PASTA MAKER TYPE AND SCREEN Timed 08/07/2024 4:[address] CHEST PE W CONTRAST ED Urgent/IP Urgent 08/05/2024 12:52 AM CDT D-DIMER, QUANTITATIVE STAT 08/04/2024 6:28 PM CDT RESPIRATORY PATHOGEN PANEL Routine 08/04/2024 6:28 PM CDT ECG 12-LEAD Routine 08/04/2024 5:45 PM CDT ECG 12-LEAD Routine 08/04/2024 11:54 AM CDT ANTIBODY IDENTIFICATION Routine 08/04/2024 6:12 AM CDT EGFR Timed 08/04/2024 4:48 AM CDT CARDIOLIPIN ANTIBODY, IGG AND IGM Timed 08/04/2024 4:48 AM CDT BETA 2 GLYCOPROTEIN IGM AB Timed 08/04/2024 4:48 AM CDT BETA 2 GLYCOPROTEIN IGG AB Timed 08/04/2024 4:48 AM CDT LUPUS ANTICOAGULANT PANEL PLUS REFLEXES Timed 08/04/2024 4:48 AM CDT COMPREHENSIVE METABOLIC PANEL Timed 08/04/2024 4:48 AM CDT CBC WITHOUT DIFFERENTIAL Timed 08/04/2024 4:48 AM CDT TYPE AND SCREEN Timed 08/04/2024 4:48 AM CDT ECHOCARDIOGRAM Routine 08/03/2024 4:07 PM CDT ECHOCARDIOGRAM Routine 08/03/2024 4:06 PM CDT US OB LIMITED IP Routine 08/02/2024 11:48 AM CDT GROUP B STREPTOCOCCUS CULTURE Routine 08/01/2024 4:09 PM CDT EGFR Timed 08/01/2024 4:33 AM CDT COMPREHENSIVE METABOLIC PANEL Timed 08/01/2024 4:33 AM CDT CBC WITHOUT DIFFERENTIAL Timed 08/01/2024 4:33 AM CDT TYPE AND SCREEN Timed 08/01/2024 4:33 AM CDT CBC WITHOUT DIFFERENTIAL Routine 07/31/2024 5:09 AM CDT MAGNESIUM Routine 07/31/2024 5:07 AM CDT EGFR Routine 07/30/2024 4:49 AM CDT COMPREHENSIVE METABOLIC PANEL Routine 07/30/2024 4:49 AM CDT CBC WITHOUT DIFFERENTIAL Routine 07/30/2024 4:49 AM CDT MAGNESIUM Routine 07/30/2024 4:49 AM CDT B CHECK SAMPLE STAT 07/29/2024 6:47 AM CDT EGFR Routine 07/29/2024 5:43 AM CDT MAGNESIUM Routine 07/29/2024 5:43 AM CDT PROTEIN / CREATININE RATIO, URINE, RANDOM Routine 07/29/2024 5:43 AM CDT COMPREHENSIVE METABOLIC PANEL Routine 07/29/2024 5:43 AM CDT TYPE AND SCREEN Timed 07/29/2024 5:43 AM CDT CBC WITHOUT DIFFERENTIAL Routine 07/29/2024 5:43 AM CDT RPR Routine 07/29/2024 5:43 AM CDT HIV 1/2 ANTIBODY PLUS P24 ANTIGEN Routine 07/29/2024 5:43 AM CDT EGFR STAT 07/28/2024 10:30 PM CDT URIC ACID STAT 07/28/2024 10:30 PM CDT LACTATE DEHYDROGENASE STAT 07/28/2024 10:30 PM CDT CBC WITHOUT DIFFERENTIAL STAT 07/28/2024 10:30 PM CDT PROTEIN / CREATININE RATIO, URINE, RANDOM Routine 07/28/2024 10:30 PM CDT COMPREHENSIVE METABOLIC PANEL STAT 07/28/2024 10:30 PM CDT URINALYSIS AND REFLEX TO MICROSCOPIC AND CULTURE Routine 07/28/2024 10:30 PM CDT EGFR STAT 07/27/2024 4:00 PM CDT Unspecified high-risk DIFFERENTIAL AUTO STAT 07/27/2024 4:0 0 PM CDT Unspecified high-risk CBC WITH AUTO DIFFERENTIAL STAT 07/27/2024 4:00 PM CDT Unspecified high-risk PROTEIN / CREATININE RATIO, URINE, RANDOM STAT 07/27/2024 4:00 PM CDT Unspecified high-risk COMPREHENSIVE METABOLIC PANEL STAT 07/27/2024 4:00 PM CDT Unspecified high-risk URIC ACID STAT 07/27/2024 4:00 PM CDT Unspecified high-risk POCT URINALYSIS DIPSTICK Routine 07/27/2024 3:19 PM CDT Unspecified high-risk US OB FOLLOW UP WITH US TRANSVAGINAL (C) Schedule Routine, Read Routine (OP Routine) 07/27/2024 1:44 PM CDT High risk , antepartum Monochorionic diamniotic twin , antepartum US OB HEART WITH US FOLLOW UP (C) Schedule Routine, Read Routine (OP Routine) 07/13/2024 2:47 PM CDT High risk , antepartum Monochorionic diamniotic twin , antepartum POCT URINALYSIS DIPSTICK Routine 07/13/2024 2:45 PM CDT Unspecified high-risk VITAMIN D 25 HYDROXY Routine 07/12/2024 11:01 AM CDT Encounter for supervision of normal first in first trimester POCT OB URINE SHORT DIP (GLUCOSE, PROTEIN, KETONES) Routine 07/12/2024 10:31 AM CDT Encounter for supervision of normal first in first trimester 24 weeks gestation of US OB LIMITED Schedule Routine, Read Routine (OP Routine) 07/12/2024 10:20 AM CDT Ultrasound scan done for inability to hear heart tones HEPATITIS C ANTIBODY Routine 05/20/2024 2:47 PM CDT Encounter for supervision of normal first in first trimester 11 weeks gestation of from Last 3 Months or Most Recently Relevant to Health Maintenance Results * Rh Immune Globulin Eval (09/20/2024 4:48 AM PASTA MAKER) RhIg Administration 1 vial of Rh Immune Globulin (300 mcg dose) RhIg Eligible Yes, eligible BIA BURT Blood 09/20/2024 4:48 AM PASTA MAKER 09/20/2024 5:03 AM PASTA MAKER Narrative BIA TODD - 09/20/2024 5:36 AM PASTA MAKER Number of weeks ?->20 weeks or greater antibody screen result:->Negative Rhogam given?->Given Date Given?->08/01/24 Number of vials requested:->1 Result [facility] Sara Eng MD LAB BLOOD BANK TEST ORDERABL ES Final Result Performing Organization Address [facility] [place] [address] * Bleed Screen (09/20/2024 4:48 AM PASTA MAKER) Bleed Screen Negative Blood 09/20/2024 4:48 AM PASTA MAKER 09/20/2024 5:03 AM PASTA MAKER Result [facility] Rey Quinonez MD LAB BLOOD BANK TEST ORDERABLE S Final Result Performing Organization Address [facility] [place] [address] * ABO/Rh (09/20/2024 4:48 AM PASTA MAKER) Pathologist [facility] ABO Rh O Negative Blood 09/20/2024 4:48 AM PASTA MAKER 09/20/2024 5:03 AM PASTA MAKER Result [facility] Rey Quinonez MD LAB BLOOD BANK TEST ORDERABLE S Final Result Performing Organization Address [facility] [place] [address] * (ABNORMAL) CBC without differential (09/20/2024 4:48 AM PASTA MAKER) Pathologist [facility] WBC 10.3(H) 3.8 - 9.9 K/cumm Hgb 9.7(L) 11.9 - 15.5 g/dL [facility] Hct 28.4(L) 35.6 - 45.5 % [facility] Plt 230 150 - 400 K/cumm [facility] MPV 10.8 9.1 - 12.3 fL [facility] RBC 3.22(L) 3.90 - 5.20 M/cumm [facility] MCV 88.2 81.3 - 96.4 fL [facility] MCH 30.1 27.1 - 33.3 pg [facility] MCHC 34.2 32.3 - 35.7 g/dL [facility] RDW CV 13.9 11.1 - 14.9 % [facility] RDW SD 44.6 35.7 - 48.1 fL [facility] NRBC abs 0.00 0.00 - 0.01 K/cumm [facility] Blood 09/20/2024 4:48 AM PASTA MAKER 09/20/2024 5:11 AM PASTA MAKER us Sara Eng MD LAB BLOOD ORDERABLES Final R esult [facility] [place] [address] * Surgical pathology (09/19/2024 4:06 PM PASTA MAKER) Tissue (Placenta) 09/19/2024 4:06 PM PASTA MAKER 09/20/2024 8:37 AM PASTA MAKER Narrative PATHOLOGY [facility] - 09/26/2024 2:16 PM PASTA MAKER EPIC results best viewed via link to PDF [facility] [place] [address] Note to Patients: This report may contain a detailed description of human tissue sent by a health care provider to the laboratory for pathologic evaluation. The content of this report is essential for diagnosis and may provide important critical findings. This information may be unfamiliar to patients to review without a medical professional present. It is advised that the patient review this report in the presence of a health care provider who can answer questions and explain the details. SURGICAL PATHOLOGY REPORT FINAL Patient Name: ?? ROHITHERMANDINORA E. Gender: ??F : ??1995 (Age: 29) Address: ??[address], [place], [place] ??[address] [facility] #: ??[id number] Taken:09/19/2024 Received:09/20/2024 Reported: 09/26/2024 [facility] Inpatient ?? Service: Obstetrics Location: [facility] ??6800 Physician(s): ??MD Sara Parker M.D. Diagnosis: ??Placenta, delivery - 662 grams diamnionic, monochorionic, pre-term twin placenta - Acute atherosis - Accelerated villous maturation -Trivascular cords with no histopathologic abnormalities [facility]/09/26/2024 14:16 By this signature, I attest that the above diagnosis is based upon my personal examination of the slides(and/or other material indicated in the diagnosis). Natasha Chamberlain M.D. Report Electronically Reviewed and Signed Out By ??Natasha Chamberlain M.D. 09/26/2024 14:16:08 History: The patient is a 29-year-old woman who presents at 34 weeks 0 days with preeclampsia with severe features and with monochorionic diamniotic twin intrauterine . ??Operative procedure: section. Specimen(s) Received: A: Placenta, 34 weeks, 0 days Gross Description: Received in formalin and labeled with the patient's identifiers is a 662 g, 20.5 x 18 x 3 cm fused twin placenta with a marginally inserted, thin and translucent membranes and a central, thin and translucent dividing membrane. ??The central dividing membrane split the disc into two roughly equal halves. ??Arbitrarily assigned twin A (cord with clamp) has an attached 17 x 1.1 cm trivessel umbilical cord which inserts at the periphery and arbitrarily assigned twin B (cord without clamp) has an attached 11.5 x 1.2 cm trivessel cord which inserts 4 cm from the nearest disc edge. ??An additional segment of cord without clamp is provided and measures up to 22 x 1.2 cm. ??No additional cord segment with a clamp is provided. ??The surfaces are blue-mayberry, glistening with engorged vessels radiating from the cord insertion site. ??The maternal surface displays focally disrupted but apparently complete cotyledons with a small amount of loosely adherent clot. ??Sections through the disc homogeneous red and spongy parenchyma. ??No discrete lesions or infarcts are grossly identified. ??Environmental Engineering Manager sections are submitted: ??A1 = arbitrarily assigned twin A, cord and membranes; A2-4 = twin A, outside medical sales representative parenchyma; A5 = common membrane and T- zone; A6 = arbitrarily assigned twin B, cord and membranes; A7-9 = twin B, outside medical sales representative parenchyma. ??Jar 3. ? sxv/09/21/2024 11:11 PA(s): Catalino Hernandez, MS, PA ([facility])CM By this signature, I attest that the above diagnosis is based upon my personal examination of the slides(and/or other material). Addenda/Procedures The performance characteristics of some immunohistochemical stains, fluorescence in-situ hybridization tests and immunophenotyping by flow cytometry cited in this report (if any) were determined by the Surgical Pathology and Flow Cytometry Departments at [facility] as part of an ongoing quality control representative program and in compliance with federally mandated regulations drawn from the Clinical Laboratory Improvement Act of 1988 (CLIA '88). ??Some of these tests rely on the use of analyte specific reagents and are subject to specific labeling requirements by the US Food and Drug Administration. ??Such diagnostic tests may only be performed in a facility that is certified by the Department of Health and Human Services as a high complexity laboratory under CLIA '88. ??The FDA has determined that such clearance or approval is not necessary. ??This test is used for clinical purposes. ??It should not be regarded as investigational or for research. ??Nevertheless, federal rules concerning the medical use of analyte specific reagents require that the following disclaimer be attached to the report: This test was developed and its performance characteristics determined by the Surgical Pathology and Flow Cytometry Departments of [facility]. ??It has not been cleared or approved by the U. S. Food and Drug Administration. IMAGES AND SCANNED DOCUMENTS, IF INCLUDED, ONLY VIEWABLE IN PDF VERSION OF REPORT us Sara Eng MD LAB PATHOLOGY ORDERABLES Fin al Result PATHOLOGY [facility] 3rd Floor [place], [place] [phone] * Epidural Block (09/19/2024 2:45 PM PASTA MAKER) Narrative Abena Denton MD - 09/19/2024 2:45 PM PASTA MAKER Abena Denton MD ? 09/19/2024 ??2:50 PM Epidural Block Patient location: OR Reason for block: primary anesthetic Staff: Supervising provider: Sidra Ann MD Placed by: Resident: Apolinar Schmitt MD Procedure prep: Preprocedure checklist: patient identified, procedure contraindications assessed, procedure consent obtained, surgical consent, IV checked, risks, benefits and alternatives discussed, monitors and equipment checked and timeout performed Patient Position: sitting Procedure performed while patient: awake Monitoring: oximetry and blood pressure Prep solution: chlorhexadine/alcohol PPE: provider hat/mask, sterile gloves and sterile drape Skin infiltrated with lidocaine 1%: yes Epidural: Approach: midline Imaging guidance used: no Location: L4-5 Number of attempts:1 Epidural needle: Injection technique: BOLA air Needle type: Tuohy Needle gauge: 18 G Needle length: 9 cm Loss of resistance: 7 cm Catheter: Catheter at skin depth: 12 cm Negative aspiration of CSF: no Test dose: positive Assessment: Sensory level - left: T6 Sensory level - right: T6 Events: patient tolerated procedure well with no complications us Sidra Ann MD ANESTHESIA ORDERABLES Final Result * eGFR (09/18/2024 6:21 AM PASTA MAKER) [facility] eGFR >90 >=60 mL/min/1. 73 m2 Comment: Interpretive Data Reference Interval Normal ?>/= 90 mL/min/1.73m2 Mildly decreased* ? 60 - 89 mL/min/1.73m2 Mildly to moderately decreased ?45 - 59 mL/min/1.73m2 Moderately to severely decreased ??30 - 44 mL/min/1.73m2 Severely decreased ?15 - 29 mL/min/1.73m2 Kidney Failure ?< 15 ??mL/min/1.73m2 *Relative to young adult level Estimated glomerular filtration rate is determined by the 2020 CKD-EPI equation recommended by the National Kidney Foundation (A Unifying Approach to GFR Estimation: Recommendations of the NKF-ASK Task Force on Reassessing the Inclusion of Race in Diagnosing Kidney Disease, JASN 202). The CKD-EPI equation should not be used for patients with unstable renal function and has not been validated in children and those over 70. Current interpretive data was last reviewed 2021. Blood 09/18/2024 6:21 AM PASTA MAKER 09/18/2024 6:32 AM PASTA MAKER us Anastasia Amaro MD LAB BLOOD ORDERABLES Final Result [facility] Department [place] [address] * (ABNORMAL) CBC without differential (09/18/2024 6:21 AM PASTA MAKER) WBC 10.0(H) 3.8 - 9.9 K/cumm Hgb 11.6(L) 11.9 - 15.5 g/dL [facility] Hct 34.0(L) 35.6 - 45.5 % [facility] Plt 250 150 - 400 K/cumm [facility] MPV 11.0 9.1 - 12.3 fL [facility] RBC 3.92 3.90 - 5.20 M/cumm [facility] MCV 86.7 81.3 - 96.4 fL [facility] MCH 29.6 27.1 - 33.3 pg [facility] MCHC 34.1 32.3 - 35.7 g/dL [facility] RDW CV 13.7 11.1 - 14.9 % [facility] RDW SD 43.1 35.7 - 48.1 fL [facility] NRBC abs 0.00 0.00 - 0.01 K/cumm [facility] Blood 09/18/2024 6:21 AM PASTA MAKER 09/18/2024 6:32 AM PASTA MAKER Anastasia Amaro MD LAB BLOOD ORDERABLES Final Result Performing Organization Address City/[facility] Co de Phone Number [facility] Department [place] [address] * Type and screen (09/18/2024 6:21 AM PASTA MAKER) [facility] Abiodun, indirect Negative ABO Rh O Negative [facility] Blood 09/18/2024 6:21 AM PASTA MAKER 09/18/2024 6:35 AM PASTA MAKER Narrative [facility] - 09/18/2024 7:42 AM PASTA MAKER Has the patient had Daratumumab or Isatuximab in the past 6 months?->Unknown Anastasia Amaro MD LAB BLOOD BANK TEST ORDERA BLES Final Result Performing Organization Address [facility] Co de Phone Number [facility] [place] [address] * (ABNORMAL) Comprehensive metabolic panel (09/18/2024 6:21 AM PASTA MAKER) [facility] Sodium 134(L) 135 - 145 mmol/L Potassium, pl 3.8 3.3 - 4.9 mmol/L [facility] Chloride 105 97 - 110 mmol/L [facility] CO2 23 22 - 32 mmol/L [facility] Anion gap 6 2 - 15 mmol/L [facility] BUN 9 6 - 25 mg/dL [facility] Creatinine 0.69 0.60 - 1.10 mg/dL [facility] Glucose 68(L) 70 - 199 mg/dL [facility] Comment: Interpretive Data Fasting glucose >/= 126 mg/dl is diagnostic for diabetes. ?? Fasting is defined as no caloric intake for at least 8 hours. Fasting glucose between 100 mg/dl to 125 mg/dl is diagnostic of prediabetes. In a patient with classic symptoms of hyperglycemia or hyperglycemic crisis, a random glucose >/= 200 mg/dl is diagnostic for diabetes. In the absence of unequivocal hyperglycemia, results should be confirmed by repeat testing. The classification and Diagnosis of Diabetes Diabetes Care 2021; 46: S19-S40. Current interpretive data was last revised 2022. Calcium 9.0 8.5 - 10.3 mg/dL [facility] Bilirubin, total 0.2 0.1 - 1.2 mg/dL [facility] Protein, pl 6.3(L) 6.5 - 8.5 g/dL [facility] Albumin 3.0(L) 3.5 - 5.0 g/dL [facility] Alk phos 125 40 - 130 Units/L [facility] ALT 14 7 - 45 Units/L [facility] AST 16 10 - 45 Units/L [facility] Blood 09/18/2024 6:21 AM PASTA MAKER 09/18/2024 6:32 AM PASTA MAKER us Ansatasia Amaro MD LAB BLOOD ORDERABLES Final Result [facility] Department [place] [address] * nonstress test (09/17/2024 2:58 PM PASTA MAKER) Narrative Sandra Christy MD - 09/17/2024 2:58 PM PASTA MAKER Joellen Schilling MD ? 09/17/2024 ??4:04 PM nonstress test Date/Time: 09/17/2024 2:58 PM Performed by: Maureen Calix MD Authorized by: Ana M Rogers MD ?? us Ana M Rogers MD OB GYNE ORDERABLES Fi nal Result * US Ob Follow Up (09/15/2024 1:08 PM PASTA MAKER) Fetus# Fetus1 VIEWPOINT Estimated Weight 1,709 g&grams VIEWPOINT Placenta Details anterior VIEWPOINT Presentation Vertex; Maternal right- low VIEWPOINT Fetus# Fetus2 VIEWPOINT Estimated Weight 2,585 g&grams VIEWPOINT Placenta Details anterior VIEWPOINT Presentation Vertex; Maternal left- high VIEWPOINT Anatomical Region Laterality Modality Abdomen N/A Ultrasound 09/15/2024 1:08 PM PASTA MAKER Impressions 09/15/2024 2:24 PM PASTA MAKER Diamniotic (presumed MCDA) TIUP at 33w33d who is admitted for preE with severe features who presents for growth US was previously determined to be monochorionic by the [facility] practice. A thin dividing membrane and single placental mass are seen which would be consistent with this diagnosis. Twin 1 (right/high): 1. Vertex presentation. 2. The interval growth is appropriate but the EFW is now at the 3%ile with the AC at the 6%ile. The FL is <1%ile and plots 1-2 SD below the mean which is not consistent with a skeletal dysplasia. 3. The bladder and DVP are normal. 4. The UA, MCA, and DV Dopplers are normal. 5. The biophysical profile is 8/8 with normal breathing motion, body motion, tone and amniotic fluid volume. Twin 2 (left/low): 1. Vertex presentation. THIS IS THE PRESENTING TWIN. 2. The interval growth is appropriate. The EFW plots at the 87%ile. The intertwin discordance is 33%. 3. The bladder and DVP are normal. 4. The UA, MCA, and DV Dopplers are normal. Delta MoM for MCA is normal. 5. Unilateral mild left-sided ventriculomegaly not reimaged today. 6. 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 She is already undergoing daily testing and has delivery scheduled at 34w so no management changes are recommended. She would be a candidate for a breech extraction if twin 2 remains the presenting twin. These findings were communicated to Dr. Schilling. Narrative Procedure Note Nini Cortez MD - 09/15/2024 IMPRESSION: Diamniotic (presumed MCDA) TIUP at 33w33d who is admitted for preE withsevere features who presents for growth US was previously [facility]. A thin dividing membrane and single placental mass are seenwhich would be consistent with this diagnosis. Twin 1 (right/high): 1. Vertex presentation. 2. The interval growth is appropriate but the EFW is now at the 3%ile withthe AC at the 6%ile. The FL is <1%ile and plots 1-2 SD below the meanwhich is not consistent with a skeletal dysplasia. 3. The bladder and DVP are normal. 4. The UA, MCA, and DV Dopplers are normal. 5. The biophysical profile is 8/8 with normal breathing motion, bodymotion, tone and amniotic fluid volume. Twin 2 (left/low): 1. Vertex presentation. THIS IS THE PRESENTING TWIN. 2. The interval growth is appropriate. The EFW plots at the 87%ile.The intertwin discordance is 33%. 3. The bladder and DVP are normal. 4. The UA, MCA, and DV Dopplers are normal. Delta MoM for MCA is normal. 5. Unilateral mild left-sided ventriculomegaly not reimaged today. 6. 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 She is already undergoingdaily testing and has delivery scheduled at 34w so no management changesare recommended. She would be a candidate for a breech extraction if twin 2 remains thepresenting twin. These findings were communicated to Dr. Schilling. us Sara Eng MD IMG OB US PROCEDURES Final R esult * eGFR (09/15/2024 6:17 AM PASTA MAKER) [facility] eGFR >90 >=60 mL/min/1. 73 m2 Comment: Interpretive Data Reference Interval Normal ?>/= 90 mL/min/1.73m2 Mildly decreased* ? 60 - 89 mL/min/1.73m2 Mildly to moderately decreased ?45 - 59 mL/min/1.73m2 Moderately to severely decreased ??30 - 44 mL/min/1.73m2 Severely decreased ?15 - 29 mL/min/1.73m2 Kidney Failure ?< 15 ??mL/min/1.73m2 *Relative to young adult level Estimated glomerular filtration rate is determined by the 2020 CKD-EPI equation recommended by the National Kidney Foundation (A Unifying Approach to GFR Estimation: Recommendations of the NKF-ASK Task Force on Reassessing the Inclusion of Race in Diagnosing Kidney Disease, JASN 2020). The CKD-EPI equation should not be used for patients with unstable renal function and has not been validated in children and those over 70. Current interpretive data was last reviewed 2021. Blood 09/15/2024 6:17 AM PASTA MAKER 09/15/2024 6:31 AM PASTA MAKER us Anastasia Amaro MD LAB BLOOD ORDERABLES Final Result [facility] Department [place] [address] * (ABNORMAL) CBC without differential (09/15/2024 6:17 AM PASTA MAKER) Pathologist [facility] WBC 10.1(H) 3.8 - 9.9 K/cumm Hgb 11.7(L) 11.9 - 15.5 g/dL [facility] Hct 34.6(L) 35.6 - 45.5 % [facility] Plt 253 150 - 400 K/cumm [facility] MPV 11.2 9.1 - 12.3 fL [facility] RBC 3.94 3.90 - 5.20 M/cumm [facility] MCV 87.8 81.3 - 96.4 fL [facility] MCH 29.7 27.1 - 33.3 pg [facility] MCHC 33.8 32.3 - 35.7 g/dL [facility] RDW CV 13.8 11.1 - 14.9 % [facility] RDW SD 44.1 35.7 - 48.1 fL [facility] NRBC abs 0.00 0.00 - 0.01 K/cumm [facility] Blood 09/15/2024 6:17 AM PASTA MAKER 09/15/2024 6:31 AM PASTA MAKER Anastasia Amaro MD LAB BLOOD ORDERABLES Final Result Performing Organization Address [facility] [place] [address] * Type and screen (09/15/2024 6:17 AM PASTA MAKER) Pathologist [facility] Abiodun, indirect Negative Comment:Patient has previous antibody history ABO Rh O Negative [facility] Blood 09/15/2024 6:17 AM PASTA MAKER 09/15/2024 6:30 AM PASTA MAKER Narrative [facility] - 09/15/2024 7:57 AM PASTA MAKER Has the patient had Daratumumab or Isatuximab in the past 6 months?->Unknown Anastasia Amaro MD LAB BLOOD BANK TEST ORDERA BLES Final Result Performing Organization Address [facility] de Phone Number [facility] [place] [address] * (ABNORMAL) Comprehensive metabolic panel (09/15/2024 6:17 AM PASTA MAKER) [facility] Sodium 139 135 - 145 mmol/L Potassium, pl 3.5 3.3 - 4.9 mmol/L [facility] Chloride 106 97 - 110 mmol/L [facility] CO2 21(L) 22 - 32 mmol/L [facility] Anion gap 12 2 - 15 mmol/L [facility] BUN 8 6 - 25 mg/dL [facility] Creatinine 0.66 0.60 - 1.10 mg/dL [facility] Glucose 106 70 - 199 mg/dL [facility] Comment: Interpretive Data Fasting glucose >/= 126 mg/dl is diagnostic for diabetes. ?? Fasting is defined as no caloric intake for at least 8 hours. Fasting glucose between 100 mg/dl to 125 mg/dl is diagnostic of prediabetes. In a patient with classic symptoms of hyperglycemia or hyperglycemic crisis, a random glucose >/= 200 mg/dl is diagnostic for diabetes. In the absence of unequivocal hyperglycemia, results should be confirmed by repeat testing. The classification and Diagnosis of Diabetes Diabetes Care 2021; 46: S19-S40. Current interpretive data was last revised 2022. Calcium 9.0 8.5 - 10.3 mg/dL [facility] Bilirubin, total <0.2 0.1 - 1.2 mg/dL [facility] Protein, pl 6.4(L) 6.5 - 8.5 g/dL [facility] Albumin 3.0(L) 3.5 - 5.0 g/dL [facility] Alk phos 124 40 - 130 Units/L [facility] ALT 19 7 - 45 Units/L [facility] AST 20 10 - 45 Units/L [facility] Blood 09/15/2024 6:17 AM PASTA MAKER 09/15/2024 6:31 AM PASTA MAKER us Anastasia Amaro MD LAB BLOOD ORDERABLES Final Result [facility] [place] [address] * nonstress test (09/13/2024 5:10 PM PASTA MAKER) Narrative Sandra Christy MD - 09/13/2024 5:10 PM PASTA MAKER Anastasia Plaza MD ? 09/13/2024 ??5:21 PM 29 y.o. at 33w1d a/f preeclampsia with SF A FHR Baseline: 125>130>125 Variability: moderate Reactive: Yes B FHR Baseline: 130 Variability: moderate Reactive: Yes Contractions: absent Comments: Prolonged monitoring given periods of reassuring but non-reactive tracing, reactive from 16:50-17:10 I have reviewed NST and instructed RN to take off monitor Anastasia Plaza MD us Ana M Rogers MD OB GYNE ORDERABLES Fi nal Result * eGFR (09/12/2024 6:35 AM PASTA MAKER) eGFR >90 >=60 mL/min/1. 73 m2 Comment: Interpretive Data Reference Interval Normal ?>/= 90 mL/min/1.73m2 Mildly decreased* ? 60 - 89 mL/min/1.73m2 Mildly to moderately decreased ?45 - 59 mL/min/1.73m2 Moderately to severely decreased ??30 - 44 mL/min/1.73m2 Severely decreased ?15 - 29 mL/min/1.73m2 Kidney Failure ?< 15 ??mL/min/1.73m2 *Relative to young adult level Estimated glomerular filtration rate is determined by the 2020 CKD-EPI equation recommended by the National Kidney Foundation (A Unifying Approach to GFR Estimation: Recommendations of the NKF-ASK Task Force on Reassessing the Inclusion of Race in Diagnosing Kidney Disease, JASN 2020). The CKD-EPI equation should not be used for patients with unstable renal function and has not been validated in children and those over 70. Current interpretive data was last reviewed 2021. Blood 09/12/2024 6:35 AM PASTA MAKER 09/12/2024 6:51 AM PASTA MAKER us Anastasia Amaro MD LAB BLOOD ORDERABLES Final Result Performing Organization Address City/State/[facility] Co de Phone Number [facility] Department [place] [address] * (ABNORMAL) CBC without differential (09/12/2024 6:35 AM PASTA MAKER) WBC 10.0(H) 3.8 - 9.9 K/cumm Hgb 11.8(L) 11.9 - 15.5 g/dL [facility] Hct 35.3(L) 35.6 - 45.5 % [facility] Plt 226 150 - 400 K/cumm [facility] MPV 11.2 9.1 - 12.3 fL [facility] RBC 3.97 3.90 - 5.20 M/cumm [facility] MCV 88.9 81.3 - 96.4 fL [facility] MCH 29.7 27.1 - 33.3 pg [facility] MCHC 33.4 32.3 - 35.7 g/dL [facility] RDW CV 13.8 11.1 - 14.9 % [facility] RDW SD 44.5 35.7 - 48.1 fL [facility] NRBC abs 0.02(H) 0.00 - 0.01 K/cumm [facility] Blood 09/12/2024 6:35 AM PASTA MAKER 09/12/2024 6:52 AM PASTA MAKER Anastasia Amaro MD LAB BLOOD ORDERABLES Final Result Performing Organization Address [facility] de Phone Number [facility] Department [place] [address] * Type and screen (09/12/2024 6:35 AM PASTA MAKER) [facility] ABO Rh O Negative Abiodun, indirect Negative [facility] Comment:Patient has previous antibody history Blood 09/12/2024 6:35 AM PASTA MAKER 09/12/2024 6:48 AM PASTA MAKER Narrative [facility] - 09/12/2024 7:49 AM PASTA MAKER Has the patient had Daratumumab or Isatuximab in the past 6 months?->Unknown Anastasia Amaro MD LAB BLOOD BANK TEST ORDERA BLES Final Result Performing Organization Address [facility] Co de Phone Number [facility] Department [place] [address] * (ABNORMAL) Comprehensive metabolic panel (09/12/2024 6:35 AM PASTA MAKER) [facility] Sodium 139 135 - 145 mmol/L Potassium, pl 3.8 3.3 - 4.9 mmol/L [facility] Chloride 107 97 - 110 mmol/L [facility] CO2 22 22 - 32 mmol/L [facility] Anion gap 10 2 - 15 mmol/L [facility] BUN 6 6 - 25 mg/dL [facility] Creatinine 0.64 0.60 - 1.10 mg/dL [facility] Glucose 69(L) 70 - 199 mg/dL [facility] Comment: Interpretive Data Fasting glucose >/= 126 mg/dl is diagnostic for diabetes. ?? Fasting is defined as no caloric intake for at least 8 hours. Fasting glucose between 100 mg/dl to 125 mg/dl is diagnostic of prediabetes. In a patient with classic symptoms of hyperglycemia or hyperglycemic crisis, a random glucose >/= 200 mg/dl is diagnostic for diabetes. In the absence of unequivocal hyperglycemia, results should be confirmed by repeat testing. The classification and Diagnosis of Diabetes Diabetes Care 202; 46: S19-S40. Current interpretive data was last revised 2022. Calcium 8.8 8.5 - 10.3 mg/dL [facility] Bilirubin, total <0.2 0.1 - 1.2 mg/dL [facility] Protein, pl 6.4(L) 6.5 - 8.5 g/dL [facility] Albumin 3.1(L) 3.5 - 5.0 g/dL [facility] Alk phos 122 40 - 130 Units/L [facility] ALT 22 7 - 45 Units/L [facility] AST 23 10 - 45 Units/L [facility] Blood 09/12/2024 6:35 AM PASTA MAKER 09/12/2024 6:51 AM PASTA MAKER us Anastasia Amaro MD LAB BLOOD ORDERABLES Final Result [facility] [place] [address] * eGFR (09/09/2024 6:24 AM PASTA MAKER) eGFR >90 >=60 mL/min/1. 73 m2 Comment: Interpretive Data Reference Interval Normal ?>/= 90 mL/min/1.73m2 Mildly decreased* ? 60 - 89 mL/min/1.73m2 Mildly to moderately decreased ?45 - 59 mL/min/1.73m2 Moderately to severely decreased ??30 - 44 mL/min/1.73m2 Severely decreased ?15 - 29 mL/min/1.73m2 Kidney Failure ?< 15 ??mL/min/1.73m2 *Relative to young adult level Estimated glomerular filtration rate is determined by the 2020 CKD-EPI equation recommended by the National Kidney Foundation (A Unifying Approach to GFR Estimation: Recommendations of the NKF-ASK Task Force on Reassessing the Inclusion of Race in Diagnosing Kidney Disease, JASN 2020). The CKD-EPI equation should not be used for patients with unstable renal function and has not been validated in children and those over 70. Current interpretive data was last reviewed 2021. Blood 09/09/2024 6:24 AM PASTA MAKER 09/09/2024 6:52 AM PASTA MAKER us Anastasia Amaro MD LAB BLOOD ORDERABLES Final Result [facility] Department [place] [address] * (ABNORMAL) CBC without differential (09/09/2024 6:24 AM PASTA MAKER) WBC 8.6 3.8 - 9.9 K/cumm Hgb 10.9(L) 11.9 - 15.5 g/dL [facility] Hct 33.1(L) 35.6 - 45.5 % [facility] Plt 239 150 - 400 K/cumm [facility] MPV 11.0 9.1 - 12.3 fL [facility] RBC 3.77(L) 3.90 - 5.20 M/cumm [facility] MCV 87.8 81.3 - 96.4 fL [facility] MCH 28.9 27.1 - 33.3 pg [facility] MCHC 32.9 32.3 - 35.7 g/dL [facility] RDW CV 13.8 11.1 - 14.9 % [facility] RDW SD 43.8 35.7 - 48.1 fL [facility] NRBC abs 0.00 0.00 - 0.01 K/cumm [facility] Blood 09/09/2024 6:24 AM PASTA MAKER 09/09/2024 6:52 AM PASTA MAKER Anastasia Amaro MD LAB BLOOD ORDERABLES Final Result Performing Organization Address [facility] de Phone Number [facility] [place] [address] * Type and screen (09/09/2024 6:24 AM PASTA MAKER) Pathologist [facility] ABO Rh O Negative Abiodun, indirect Negative [facility] Comment:Patient has previous antibody history Blood 09/09/2024 6:24 AM PASTA MAKER 09/09/2024 7:19 AM PASTA MAKER Narrative [facility] - 09/09/2024 8:51 AM PASTA MAKER Has the patient had Daratumumab or Isatuximab in the past 6 months?->Unknown Anastasia Amaro MD LAB BLOOD BANK TEST ORDERA BLES Final Result Performing Organization Address [facility] de Phone Number [facility] [place] [address] * (ABNORMAL) Comprehensive metabolic panel (09/09/2024 6:24 AM PASTA MAKER) Pathologist [facility] Sodium 141 135 - 145 mmol/L Potassium, pl 3.8 3.3 - 4.9 mmol/L [facility] Chloride 108 97 - 110 mmol/L [facility] CO2 22 22 - 32 mmol/L [facility] Anion gap 11 2 - 15 mmol/L [facility] BUN 8 6 - 25 mg/dL [facility] Creatinine 0.75 0.60 - 1.10 mg/dL [facility] Glucose 70 70 - 199 mg/dL [facility] Comment: Interpretive Data Fasting glucose >/= 126 mg/dl is diagnostic for diabetes. ?? Fasting is defined as no caloric intake for at least 8 hours. Fasting glucose between 100 mg/dl to 125 mg/dl is diagnostic of prediabetes. In a patient with classic symptoms of hyperglycemia or hyperglycemic crisis, a random glucose >/= 200 mg/dl is diagnostic for diabetes. In the absence of unequivocal hyperglycemia, results should be confirmed by repeat testing. The classification and Diagnosis of Diabetes Diabetes Care 2021; 46: S19-S40. Current interpretive data was last revised 2022. Calcium 8.9 8.5 - 10.3 mg/dL [facility] Bilirubin, total <0.2 0.1 - 1.2 mg/dL [facility] Protein, pl 6.2(L) 6.5 - 8.5 g/dL [facility] Albumin 3.2(L) 3.5 - 5.0 g/dL [facility] Alk phos 117 40 - 130 Units/L [facility] ALT 22 7 - 45 Units/L [facility] AST 23 10 - 45 Units/L [facility] Blood 09/09/2024 6:24 AM PASTA MAKER 09/09/2024 6:52 AM PASTA MAKER Anastasia Amaor MD LAB BLOOD ORDERABLES Final Result [facility] [place] [address] * US Ob Limited (09/08/2024 10:29 AM PASTA MAKER) Fetus# [id number] VIEWPOINT Placenta Details anterior VIEWPOINT Presentation Vertex; Maternal right- low VIEWPOINT Fetus# [id number] VIEWPOINT Placenta Details anterior VIEWPOINT Presentation Vertex; Maternal left- high (presenting) VIEWPOINT Anatomical Region Laterality Modality Abdomen N/A Ultrasound 09/08/2024 10:2 9 AM PASTA MAKER Impressions 09/08/2024 11:25 AM PASTA MAKER 1. Mo/di twin IUP at 32w 3d. ?2. Twin 1 Vertex; Maternal right- low: There is normal AFV with a DVP of 3.3 cm. A normal bladder is seen. Doppler study of the umbilical vessels and middle cerebral artery show normal waveforms. The PSV in the MCA was recorded at 1.11 MoM. ?? 3. Twin 2 Vertex; Maternal left- high (presenting): There is normal AFV with a DVP of 5.4 cm. A normal bladder is seen. Doppler study of the umbilical vessels and middle cerebral artery show normal waveforms. The PSV in the MCA was recorded at 1.11 MoM. ??No evidence of TTTS or TAPS sequence. ?? Narrative Procedure Note Kaela Mcallister MD - 09/08/2024 IMPRESSION: 1. Mo/di twin IUP at 32w 3d. 2. Twin 1 Vertex; Maternal right- low:There is normal AFV with a DVP of 3.3 cm. A normal bladder is seen.Doppler study of the umbilical vessels and middle cerebral artery shownormal waveforms. The PSV in the MCA was recorded at 1.11 MoM. 3. Twin 2Vertex; Maternal left- high (presenting): There is normal AFV with a DVPof 5.4 cm. A normal bladder is seen. Doppler study of the umbilicalvessels and middle cerebral artery show normal waveforms. The PSV in theMCA was recorded at 1.11 MoM. No evidence of TTTS or TAPS sequence. us Sara Eng MD IMG OB US PROCEDURES Final R esult * nonstress test (09/06/2024 8:38 PM PASTA MAKER) Narrative Anastasia Amaro MD - 09/06/2024 8:38 PM PASTA MAKER Pauline Simms MD ? 09/06/2024 ??8:41 PM Baby A FHR Baseline: 125 Variability: moderate Accelerations: absent Decelerations: absent in last part of tracing, was initially having small variable decels in monitoring Reactive: Yes Baby B FHR Baseline: 130 Variability: moderate Accelerations: present Decelerations: absent Reactive: Yes 29 y.o. at 32w1d a/f preeclampsia with SF On monitor Contractions: absent I have reviewed NST and instructed RN to take off monitor Pauline Simms MD us Ana M Rogers MD OB GYNE ORDERABLES Fi nal Result * eGFR (09/06/2024 4:31 AM PASTA MAKER) Pathologist [facility] eGFR >90 >=60 mL/min/1. 73 m2 Comment: Interpretive Data Reference Interval Normal ?>/= 90 mL/min/1.73m2 Mildly decreased* ? 60 - 89 mL/min/1.73m2 Mildly to moderately decreased ?45 - 59 mL/min/1.73m2 Moderately to severely decreased ??30 - 44 mL/min/1.73m2 Severely decreased ?15 - 29 mL/min/1.73m2 Kidney Failure ?< 15 ??mL/min/1.73m2 *Relative to young adult level Estimated glomerular filtration rate is determined by the 2020 CKD-EPI equation recommended by the National Kidney Foundation (A Unifying Approach to GFR Estimation: Recommendations of the NKF-ASK Task Force on Reassessing the Inclusion of Race in Diagnosing Kidney Disease, JASN 2020). The CKD-EPI equation should not be used for patients with unstable renal function and has not been validated in children and those over 70. Current interpretive data was last reviewed 2021. Blood 09/06/2024 4:31 AM PASTA MAKER 09/06/2024 4:53 AM PASTA MAKER us Anastasia Amaro MD LAB BLOOD ORDERABLES Final Result [facility] Department of Laboratories [place], [place] [id number] * (ABNORMAL) CBC without differential (09/06/2024 4:31 AM PASTA MAKER) WBC 10.3(H) 3.8 - 9.9 K/cumm Hgb 11.7(L) 11.9 - 15.5 g/dL [facility] Hct 34.5(L) 35.6 - 45.5 % [facility] Plt 249 150 - 400 K/cumm [facility] MPV 11.1 9.1 - 12.3 fL [facility] RBC 3.96 3.90 - 5.20 M/cumm [facility] MCV 87.1 81.3 - 96.4 fL [facility] MCH 29.5 27.1 - 33.3 pg [facility] MCHC 33.9 32.3 - 35.7 g/dL [facility] RDW CV 13.6 11.1 - 14.9 % [facility] RDW SD 42.7 35.7 - 48.1 fL [facility] NRBC abs 0.00 0.00 - 0.01 K/cumm [facility] Blood 09/06/2024 4:31 AM PASTA MAKER 09/06/2024 4:54 AM PASTA MAKER us Anastasia Amaro MD LAB BLOOD ORDERABLES Final Result Performing Organization Address City/[facility]/ZIP Co de Phone Number [facility] [place] [address] * Type and screen (09/06/2024 4:31 AM PASTA MAKER) ABO Rh O Negative Abiodun, indirect Negative [facility] Comment:Patient has previous antibody history Blood 09/06/2024 4:31 AM PASTA MAKER 09/06/2024 6:11 AM PASTA MAKER Narrative [facility] - 09/06/2024 7:16 AM PASTA MAKER Has the patient had Daratumumab or Isatuximab in the past 6 months?->Unknown Anastasia Amaro MD LAB BLOOD BANK TEST ORDERA BLES Final Result Performing Organization Address City/[facility]/ZIP Co de Phone Number [facility] [place] [address] * (ABNORMAL) Comprehensive metabolic panel (09/06/2024 4:31 AM PASTA MAKER) [employer] [facility] Sodium 138 135 - 145 mmol/L Potassium, pl 3.6 3.3 - 4.9 mmol/L [facility] Chloride 105 97 - 110 mmol/L [facility] CO2 24 22 - 32 mmol/L [facility] Anion gap 9 2 - 15 mmol/L [facility] BUN 7 6 - 25 mg/dL [facility] Creatinine 0.63 0.60 - 1.10 mg/dL [facility] Glucose 62(L) 70 - 199 mg/dL [facility] Comment: Interpretive Data Fasting glucose >/= 126 mg/dl is diagnostic for diabetes. ?? Fasting is defined as no caloric intake for at least 8 hours. Fasting glucose between 100 mg/dl to 125 mg/dl is diagnostic of prediabetes. In a patient with classic symptoms of hyperglycemia or hyperglycemic crisis, a random glucose >/= 200 mg/dl is diagnostic for diabetes. In the absence of unequivocal hyperglycemia, results should be confirmed by repeat testing. The classification and Diagnosis of Diabetes Diabetes Care 202; 46: S19-S40. Current interpretive data was last revised 2022. Calcium 9.3 8.5 - 10.3 mg/dL [facility] Bilirubin, total 0.3 0.1 - 1.2 mg/dL [facility] Protein, pl 6.6 6.5 - 8.5 g/dL [facility] Albumin 3.2(L) 3.5 - 5.0 g/dL [facility] Alk phos 118 40 - 130 Units/L [facility] ALT 23 7 - 45 Units/L [facility] AST 22 10 - 45 Units/L [facility] Blood 09/06/2024 4:31 AM PASTA MAKER 09/06/2024 4:53 AM PASTA MAKER us Anastasia Amaro MD LAB BLOOD ORDERABLES Final Result [facility] Department [place] [address] * Group B streptococcal culture Vaginal/Rectal (09/03/2024 10:29 AM PASTA MAKER) Report Final Report: Negative Vaginal/Rectal 09/03/2024 10 :29 AM PASTA MAKER 09/03/2024 10:47 AM PASTA MAKER Narrative [facility] - 09/07/2024 11:05 AM PASTA MAKER Testing performed by [facility] ([phone]). us Joellen Julio MD LAB MICROBIOLOGY - GENERAL O RDERABLES Final Result [facility] Department [place] [address] * eGFR (09/03/2024 5:26 AM PASTA MAKER) eGFR >90 >=60 mL/min/1. 73 m2 Comment: Interpretive Data Reference Interval Normal ?>/= 90 mL/min/1.73m2 Mildly decreased* ? 60 - 89 mL/min/1.73m2 Mildly to moderately decreased ?45 - 59 mL/min/1.73m2 Moderately to severely decreased ??30 - 44 mL/min/1.73m2 Severely decreased ?15 - 29 mL/min/1.73m2 Kidney Failure ?< 15 ??mL/min/1.73m2 *Relative to young adult level Estimated glomerular filtration rate is determined by the 2020 CKD-EPI equation recommended by the National Kidney Foundation (A Unifying Approach to GFR Estimation: Recommendations of the NKF-ASK Task Force on Reassessing the Inclusion of Race in Diagnosing Kidney Disease, JASN 2020). The CKD-EPI equation should not be used for patients with unstable renal function and has not been validated in children and those over 70. Current interpretive data was last reviewed 2021. Blood 09/03/2024 5:26 AM PASTA MAKER 09/03/2024 5:39 AM PASTA MAKER Anastasia Amaro MD LAB BLOOD ORDERABLES Final Result Performing Organization Address [facility] Co de Phone Number [facility] Department [place] [address] * (ABNORMAL) CBC without differential (09/03/2024 5:26 AM PASTA MAKER) Pathologist [facility] WBC 12.1(H) 3.8 - 9.9 K/cumm Hgb 11.7(L) 11.9 - 15.5 g/dL [facility] Hct 34.0(L) 35.6 - 45.5 % [facility] Plt 273 150 - 400 K/cumm [facility] MPV 11.0 9.1 - 12.3 fL [facility] RBC 3.97 3.90 - 5.20 M/cumm [facility] MCV 85.6 81.3 - 96.4 fL [facility] MCH 29.5 27.1 - 33.3 pg [facility] MCHC 34.4 32.3 - 35.7 g/dL [facility] RDW CV 13.3 11.1 - 14.9 % [facility] RDW SD 41.7 35.7 - 48.1 fL [facility] NRBC abs 0.00 0.00 - 0.01 K/cumm [facility] Blood 09/03/2024 5:26 AM PASTA MAKER 09/03/2024 5:39 AM PASTA MAKER us Anastasia Amaro MD LAB BLOOD ORDERABLES Final Result [facility] Department [place] [address] * Type and screen (09/03/2024 5:26 AM PASTA MAKER) Pathologist [facility] Abiodun, indirect Negative Comment:Patient has previous antibody history ABO Rh O Negative [facility] Blood 09/03/2024 5:26 AM PASTA MAKER 09/03/2024 5:32 AM PASTA MAKER Narrative [facility] - 09/03/2024 6:27 AM PASTA MAKER Has the patient had Daratumumab or Isatuximab in the past 6 months?->Unknown Anastasia Amaro MD LAB BLOOD BANK TEST ORDERA BLES Final Result [facility] [place] [address] * (ABNORMAL) Comprehensive metabolic panel (09/03/2024 5:26 AM PASTA MAKER) Pathologist [facility] Sodium 139 135 - 145 mmol/L Potassium, pl 4.0 3.3 - 4.9 mmol/L [facility] Chloride 105 97 - 110 mmol/L [facility] CO2 20(L) 22 - 32 mmol/L [facility] Anion gap 14 2 - 15 mmol/L [facility] BUN 8 6 - 25 mg/dL [facility] Creatinine 0.55(L) 0.60 - 1.10 mg/dL [facility] Glucose 68(L) 70 - 199 mg/dL [facility] Comment: Interpretive Data Fasting glucose >/= 126 mg/dl is diagnostic for diabetes. ?? Fasting is defined as no caloric intake for at least 8 hours. Fasting glucose between 100 mg/dl to 125 mg/dl is diagnostic of prediabetes. In a patient with classic symptoms of hyperglycemia or hyperglycemic crisis, a random glucose >/= 200 mg/dl is diagnostic for diabetes. In the absence of unequivocal hyperglycemia, results should be confirmed by repeat testing. The classification and Diagnosis of Diabetes Diabetes Care 2021; 46: S19-S40. Current interpretive data was last revised 2022. Calcium 9.3 8.5 - 10.3 mg/dL [facility] Bilirubin, total 0.3 0.1 - 1.2 mg/dL [facility] Protein, pl 6.4(L) 6.5 - 8.5 g/dL [facility] Albumin 3.3(L) 3.5 - 5.0 g/dL [facility] Alk phos 111 40 - 130 Units/L [facility] ALT 22 7 - 45 Units/L [facility] AST 24 10 - 45 Units/L [facility] Blood 09/03/2024 5:26 AM PASTA MAKER 09/03/2024 5:39 AM PASTA MAKER us Anastasia Amaro MD LAB BLOOD ORDERABLES Final Result Performing Organization Address [facility]/ZIP Co de Phone Number [facility] [place] [address] * ECG 12 lead (09/02/2024 4:33 PM PASTA MAKER) Pathologist [facility] Ventricular Rate EKG/Min 110 BPM [facility] Atrial Rate 110 BPM [facility] MA-Interval (MSEC) 130 ms [facility] QRS-Interval (MSEC) 82 ms [facility] QT-Interval (MSEC) 340 ms [facility] QTc 460 ms [facility] P [place] 55 degrees [facility] R [place] 22 degrees [facility] T [place] 30 degrees [facility] Diagnosis Sinus tachycardia Otherwise normal ECG No previous ECGs available Confirmed by SAMANTA KAPLAN M.D ([id number]) on 09/06/2024 2:44:26 PM [facility] 09/02/2024 4:33 PM PASTA MAKER 09/06/2024 2:44 PM PASTA MAKER us Joellen Julio MD ECG ORDERABLES Final Result Performing Organization Address [facility] Co de Phone Number [facility] * eGFR (08/31/2024 6:20 AM PASTA MAKER) eGFR >90 >=60 mL/min/1. 73 m2 Comment: Interpretive Data Reference Interval Normal ?>/= 90 mL/min/1.73m2 Mildly decreased* ? 60 - 89 mL/min/1.73m2 Mildly to moderately decreased ?45 - 59 mL/min/1.73m2 Moderately to severely decreased ??30 - 44 mL/min/1.73m2 Severely decreased ?15 - 29 mL/min/1.73m2 Kidney Failure ?< 15 ??mL/min/1.73m2 *Relative to young adult level Estimated glomerular filtration rate is determined by the 2020 CKD-EPI equation recommended by the National Kidney Foundation (A Unifying Approach to GFR Estimation: Recommendations of the NKF-ASK Task Force on Reassessing the Inclusion of Race in Diagnosing Kidney Disease, JASN 2020). The CKD-EPI equation should not be used for patients with unstable renal function and has not been validated in children and those over 70. Current interpretive data was last reviewed 2021. Blood 08/31/2024 6:20 AM PASTA MAKER 08/31/2024 7:25 AM PASTA MAKER Anastasia Amaro MD LAB BLOOD ORDERABLES Final Result [facility] [place] [address] * (ABNORMAL) CBC without differential (08/31/2024 6:20 AM PASTA MAKER) WBC 10.5(H) 3.8 - 9.9 K/cumm Hgb 11.5(L) 11.9 - 15.5 g/dL [facility] Hct 34.1(L) 35.6 - 45.5 % [facility] Plt 282 150 - 400 K/cumm [facility] MPV 10.9 9.1 - 12.3 fL [facility] RBC 3.93 3.90 - 5.20 M/cumm [facility] MCV 86.8 81.3 - 96.4 fL [facility] MCH 29.3 27.1 - 33.3 pg [facility] MCHC 33.7 32.3 - 35.7 g/dL [facility] RDW CV 13.7 11.1 - 14.9 % [facility] RDW SD 42.6 35.7 - 48.1 fL [facility] NRBC abs 0.00 0.00 - 0.01 K/cumm [facility] Blood 08/31/2024 6:20 AM PASTA MAKER 08/31/2024 7:25 AM PASTA MAKER Anastasia Amaro MD LAB BLOOD ORDERABLES Final Result Performing Organization Address [facility] de Phone Number [facility] [place] [address] * Type and screen (08/31/2024 6:20 AM PASTA MAKER) [facility] ABO Rh O Negative Abiodun, indirect Negative [facility] Comment:Patient has previous antibody history Blood 08/31/2024 6:20 AM PASTA MAKER 08/31/2024 7:41 AM PASTA MAKER Narrative [facility] - 08/31/2024 8:26 AM PASTA MAKER Has the patient had Daratumumab or Isatuximab in the past 6 months?->Unknown Anastasia Amaro MD LAB BLOOD BANK TEST ORDERA BLES Final Result Performing Organization Address [facility] [place] [address] * (ABNORMAL) Comprehensive metabolic panel (08/31/2024 6:20 AM PASTA MAKER) [facility] Sodium 137 135 - 145 mmol/L Potassium, pl 3.7 3.3 - 4.9 mmol/L [facility] Chloride 103 97 - 110 mmol/L [facility] CO2 22 22 - 32 mmol/L [facility] Anion gap 12 2 - 15 mmol/L [facility] BUN 6 6 - 25 mg/dL [facility] Creatinine 0.56(L) 0.60 - 1.10 mg/dL [facility] Glucose 70 70 - 199 mg/dL [facility] Comment: Interpretive Data Fasting glucose >/= 126 mg/dl is diagnostic for diabetes. ?? Fasting is defined as no caloric intake for at least 8 hours. Fasting glucose between 100 mg/dl to 125 mg/dl is diagnostic of prediabetes. In a patient with classic symptoms of hyperglycemia or hyperglycemic crisis, a random glucose >/= 200 mg/dl is diagnostic for diabetes. In the absence of unequivocal hyperglycemia, results should be confirmed by repeat testing. The classification and Diagnosis of Diabetes Diabetes Care 2021; 46: S19-S40. Current interpretive data was last revised 2022. Calcium 9.5 8.5 - 10.3 mg/dL [facility] Bilirubin, total 0.2 0.1 - 1.2 mg/dL [facility] Protein, pl 6.4(L) 6.5 - 8.5 g/dL [facility] Albumin 3.2(L) 3.5 - 5.0 g/dL [facility] Alk phos 103 40 - 130 Units/L [facility] ALT 28 7 - 45 Units/L [facility] AST 25 10 - 45 Units/L [facility] Blood 08/31/2024 6:20 AM PASTA MAKER 08/31/2024 7:25 AM PASTA MAKER us Anastasia Amaro MD LAB BLOOD ORDERABLES Final Result [facility] Department [place] [address] * nonstress test (08/29/2024 2:32 PM PASTA MAKER) Narrative Nini Cortez MD - 08/29/2024 2:32 PM PASTA MAKER Maureen Calix MD ? 08/29/2024 ??3:38 PM nonstress test Date/Time: 08/29/2024 2:32 PM Performed by: Maureen Calix MD Authorized by: Ana M Rogers MD ?? us Ana M Rogers MD OB GYNE ORDERABLES Fi nal Result * nonstress test (08/28/2024 7:47 PM PASTA MAKER) Narrative Nini Cortez MD - 08/28/2024 7:47 PM PASTA MAKER Francisca Yun MD ? 08/28/2024 ??7:48 PM A FHR Baseline: 120 Variability: moderate Reactive: Yes Contractions: absent B FHR Baseline: 130 Variability: moderate Reactive: Yes Contractions: absent Comments: No decels x2 I have reviewed NST and instructed RN to take off monitor Francisca Yun MD us Ana M Rogers MD OB GYNE ORDERABLES Fi nal Result * eGFR (08/28/2024 6:00 AM PASTA MAKER) eGFR >90 >=60 mL/min/1. 73 m2 Comment: Interpretive Data Reference Interval Normal ?>/= 90 mL/min/1.73m2 Mildly decreased* ? 60 - 89 mL/min/1.73m2 Mildly to moderately decreased ?45 - 59 mL/min/1.73m2 Moderately to severely decreased ??30 - 44 mL/min/1.73m2 Severely decreased ?15 - 29 mL/min/1.73m2 Kidney Failure ?< 15 ??mL/min/1.73m2 *Relative to young adult level Estimated glomerular filtration rate is determined by the 2020 CKD-EPI equation recommended by the National Kidney Foundation (A Unifying Approach to GFR Estimation: Recommendations of the NKF-ASK Task Force on Reassessing the Inclusion of Race in Diagnosing Kidney Disease, JASN 2020). The CKD-EPI equation should not be used for patients with unstable renal function and has not been validated in children and those over 70. Current interpretive data was last reviewed 2021. Blood 08/28/2024 6:00 AM PASTA MAKER 08/28/2024 6:13 AM PASTA MAKER us Anastasia Amaro MD LAB BLOOD ORDERABLES Final Result Performing Organization Address [facility] Co de Phone Number [facility] Department [place] [address] * (ABNORMAL) CBC without differential (08/28/2024 6:00 AM PASTA MAKER) Pathologist [facility] WBC 10.3(H) 3.8 - 9.9 K/cumm Hgb 11.2(L) 11.9 - 15.5 g/dL [facility] Hct 33.0(L) 35.6 - 45.5 % [facility] Plt 289 150 - 400 K/cumm [facility] MPV 10.7 9.1 - 12.3 fL [facility] RBC 3.78(L) 3.90 - 5.20 M/cumm [facility] MCV 87.3 81.3 - 96.4 fL [facility] MCH 29.6 27.1 - 33.3 pg [facility] MCHC 33.9 32.3 - 35.7 g/dL [facility] RDW CV 13.7 11.1 - 14.9 % [facility] RDW SD 43.6 35.7 - 48.1 fL [facility] NRBC abs 0.00 0.00 - 0.01 K/cumm [facility] Blood 08/28/2024 6:00 AM PASTA MAKER 08/28/2024 6:20 AM PASTA MAKER Anastasia Amaro MD LAB BLOOD ORDERABLES Final Result Performing Organization Address [facility] Co de Phone Number [facility] Department [place] [address] * Type and screen (08/28/2024 6:00 AM PASTA MAKER) [facility] ABO Rh O Negative Comment:Patient has previous antibody history Abiodun, indirect Negative [facility] Blood 08/28/2024 6:00 AM PASTA MAKER 08/28/2024 6:54 AM PASTA MAKER Narrative [facility] - 08/28/2024 7:53 AM PASTA MAKER Has the patient had Daratumumab or Isatuximab in the past 6 months?->Unknown us Anastasia Amaro MD LAB BLOOD BANK TEST ORDERA BLES Final Result [facility] Department [place] [address] * (ABNORMAL) Comprehensive metabolic panel (08/28/2024 6:00 AM PASTA MAKER) Sodium 137 135 - 145 mmol/L Potassium, pl 3.6 3.3 - 4.9 mmol/L [facility] Chloride 105 97 - 110 mmol/L [facility] CO2 21(L) 22 - 32 mmol/L [facility] Anion gap 11 2 - 15 mmol/L [facility] BUN 8 6 - 25 mg/dL [facility] Creatinine 0.52(L) 0.60 - 1.10 mg/dL [facility] Glucose 74 70 - 199 mg/dL [facility] Comment: Interpretive Data Fasting glucose >/= 126 mg/dl is diagnostic for diabetes. ?? Fasting is defined as no caloric intake for at least 8 hours. Fasting glucose between 100 mg/dl to 125 mg/dl is diagnostic of prediabetes. In a patient with classic symptoms of hyperglycemia or hyperglycemic crisis, a random glucose >/= 200 mg/dl is diagnostic for diabetes. In the absence of unequivocal hyperglycemia, results should be confirmed by repeat testing. The classification and Diagnosis of Diabetes Diabetes Care 2021; 46: S19-S40. Current interpretive data was last revised 2022. Calcium 9.3 8.5 - 10.3 mg/dL [facility] Bilirubin, total 0.2 0.1 - 1.2 mg/dL [facility] Protein, pl 6.2(L) 6.5 - 8.5 g/dL [facility] Albumin 3.2(L) 3.5 - 5.0 g/dL [facility] Alk phos 96 40 - 130 Units/L [facility] ALT 25 7 - 45 Units/L [facility] AST 22 10 - 45 Units/L [facility] Blood 08/28/2024 6:00 AM PASTA MAKER 08/28/2024 6:13 AM PASTA MAKER us Anastasia Amaro MD LAB BLOOD ORDERABLES Final Result Performing Organization Address City/[facility]/ZIP Co de Phone Number [facility] Department [place] [address] * eGFR (08/25/2024 6:19 AM PASTA MAKER) eGFR >90 >=60 mL/min/1. 73 m2 Comment: Interpretive Data Reference Interval Normal ?>/= 90 mL/min/1.73m2 Mildly decreased* ? 60 - 89 mL/min/1.73m2 Mildly to moderately decreased ?45 - 59 mL/min/1.73m2 Moderately to severely decreased ??30 - 44 mL/min/1.73m2 Severely decreased ?15 - 29 mL/min/1.73m2 Kidney Failure ?< 15 ??mL/min/1.73m2 *Relative to young adult level Estimated glomerular filtration rate is determined by the 2020 CKD-EPI equation recommended by the National Kidney Foundation (A Unifying Approach to GFR Estimation: Recommendations of the NKF-ASK Task Force on Reassessing the Inclusion of Race in Diagnosing Kidney Disease, JASN 2020). The CKD-EPI equation should not be used for patients with unstable renal function and has not been validated in children and those over 70. Current interpretive data was last reviewed 2021. Blood 08/25/2024 6:19 AM PASTA MAKER 08/25/2024 6:33 AM PASTA MAKER us Anastasia Amaro MD LAB BLOOD ORDERABLES Final Result Performing Organization Address City/[facility]/ZIP Co de Phone Number [facility] Department [place] [address] * (ABNORMAL) CBC without differential (08/25/2024 6:19 AM PASTA MAKER) Pathologist [facility] WBC 10.5(H) 3.8 - 9.9 K/cumm Hgb 11.4(L) 11.9 - 15.5 g/dL [facility] Hct 33.4(L) 35.6 - 45.5 % [facility] Plt 299 150 - 400 K/cumm [facility] MPV 10.6 9.1 - 12.3 fL [facility] RBC 3.90 3.90 - 5.20 M/cumm [facility] MCV 85.6 81.3 - 96.4 fL [facility] MCH 29.2 27.1 - 33.3 pg [facility] MCHC 34.1 32.3 - 35.7 g/dL [facility] RDW CV 13.4 11.1 - 14.9 % [facility] RDW SD 41.7 35.7 - 48.1 fL [facility] NRBC abs 0.00 0.00 - 0.01 K/cumm [facility] Blood 08/25/2024 6:19 AM PASTA MAKER 08/25/2024 6:32 AM PASTA MAKER us Anastasia Amaro MD LAB BLOOD ORDERABLES Final Result [facility] Department [place] [address] * Type and screen (08/25/2024 6:19 AM PASTA MAKER) Pathologist [facility] Abiodun, indirect Negative Comment:Patient has previous antibody history ABO Rh O Negative [facility] Blood 08/25/2024 6:19 AM PASTA MAKER 08/25/2024 7:06 AM PASTA MAKER Narrative [facility] - 08/25/2024 8:01 AM PASTA MAKER Has the patient had Daratumumab or Isatuximab in the past 6 months?->Unknown Anastasia Amaro MD LAB BLOOD BANK TEST ORDERA BLES Final Result [facility] [place] [address] * (ABNORMAL) Comprehensive metabolic panel (08/25/2024 6:19 AM PASTA MAKER) Sodium 139 135 - 145 mmol/L Potassium, pl 3.5 3.3 - 4.9 mmol/L [facility] Chloride 105 97 - 110 mmol/L [facility] CO2 22 22 - 32 mmol/L [facility] Anion gap 12 2 - 15 mmol/L [facility] BUN 6 6 - 25 mg/dL [facility] Creatinine 0.53(L) 0.60 - 1.10 mg/dL [facility] Glucose 70 70 - 199 mg/dL [facility] Comment: Interpretive Data Fasting glucose >/= 126 mg/dl is diagnostic for diabetes. ?? Fasting is defined as no caloric intake for at least 8 hours. Fasting glucose between 100 mg/dl to 125 mg/dl is diagnostic of prediabetes. In a patient with classic symptoms of hyperglycemia or hyperglycemic crisis, a random glucose >/= 200 mg/dl is diagnostic for diabetes. In the absence of unequivocal hyperglycemia, results should be confirmed by repeat testing. The classification and Diagnosis of Diabetes Diabetes Care 2021; 46: S19-S40. Current interpretive data was last revised 2022. Calcium 9.2 8.5 - 10.3 mg/dL [facility] Bilirubin, total 0.2 0.1 - 1.2 mg/dL [facility] Protein, pl 6.4(L) 6.5 - 8.5 g/dL [facility] Albumin 3.2(L) 3.5 - 5.0 g/dL [facility] Alk phos 92 40 - 130 Units/L [facility] ALT 22 7 - 45 Units/L [facility] AST 22 10 - 45 Units/L [facility] Blood 08/25/2024 6:19 AM PASTA MAKER 08/25/2024 6:33 AM PASTA MAKER Anastasia Amaro MD LAB BLOOD ORDERABLES Final Result [facility] Department [place] [address] * US Ob Follow Up (08/24/2024 9:37 AM PASTA MAKER) Fetus# Fetus1 VIEWPOINT Estimated Weight 1,348 g&grams VIEWPOINT Placenta Details anterior VIEWPOINT Presentation Vertex; Maternal right- low VIEWPOINT Fetus# Fetus2 VIEWPOINT Estimated Weight 1,784 g&grams VIEWPOINT Placenta Details anterior VIEWPOINT Presentation Vertex; Maternal left- high (presenting) VIEWPOINT Anatomical Region Laterality Modality Abdomen N/A Ultrasound 08/24/2024 9:37 AM PASTA MAKER Impressions 08/24/2024 2:06 PM PASTA MAKER 1. Presumed Mo/Di twin IUP at 30w 2d ??- confirmed by outside study.2. Twin 1 Vertex; Maternal right- low: The DVP measures 4.8 cm. A normal bladder is seen. Doppler study of the umbilical vessels and middle cerebral artery show normal waveforms. The PSV in the MCA was recorded at 1.14 MoM. ??DV doppler is difficult to obtain. ??Interval growth is appropriate. 3. Twin 2 Vertex; Maternal left- high (presenting): The DVP measures 3.1 cm. A normal bladder is seen. Doppler study of the umbilical vessels, ductus venosus and middle cerebral artery show normal waveforms. The PSV in the MCA was recorded at 1.22v ??MoM. ??Interval growth is appropriate.No evidence of TTTS or TAPS sequence. ?? growth discordance of 25%. ??Recommendation: Continue every two week surveillance for TTTS/TAPS and serial assessment of growth. Narrative Procedure Note Leticia Barillas MD - 08/24/2024 IMPRESSION: 1. Presumed Mo/Di twin IUP at 30w 2d - confirmed by outside study.2. Twin1 Vertex; Maternal right- low: The DVP measures 4.8 cm. A normal fetalbladder is seen. Doppler study of the umbilical vessels and middlecerebral artery show normal waveforms. The PSV in the MCA was recorded at1.14 MoM. DV doppler is difficult to obtain. Interval growth isappropriate. 3. Twin 2 Vertex; Maternal left- high (presenting): The DVPmeasures 3.1 cm. A normal bladder is seen. Doppler study of theumbilical vessels, ductus venosus and middle cerebral artery show normalwaveforms. The PSV in the MCA was recorded at 1.22v MoM. Interval fetalgrowth is appropriate.No evidence of TTTS or TAPS sequence. growthdiscordance of 25%. Recommendation: Continue every two week surveillancefor TTTS/TAPS and serial assessment of growth. us Anastasia Amaro MD IMG OB US PROCEDURES Edite d * eGFR (08/22/2024 6:02 AM PASTA MAKER) eGFR >90 >=60 mL/min/1. 73 m2 Comment: Interpretive Data Reference Interval Normal ?>/= 90 mL/min/1.73m2 Mildly decreased* ? 60 - 89 mL/min/1.73m2 Mildly to moderately decreased ?45 - 59 mL/min/1.73m2 Moderately to severely decreased ??30 - 44 mL/min/1.73m2 Severely decreased ?15 - 29 mL/min/1.73m2 Kidney Failure ?< 15 ??mL/min/1.73m2 *Relative to young adult level Estimated glomerular filtration rate is determined by the 2020 CKD-EPI equation recommended by the National Kidney Foundation (A Unifying Approach to GFR Estimation: Recommendations of the NKF-ASK Task Force on Reassessing the Inclusion of Race in Diagnosing Kidney Disease, JASN 202). The CKD-EPI equation should not be used for patients with unstable renal function and has not been validated in children and those over 70. Current interpretive data was last reviewed 2021. Blood 08/22/2024 6:02 AM PASTA MAKER 08/22/2024 6:18 AM PASTA MAKER Anastasia Amaro MD LAB BLOOD ORDERABLES Final Result [facility] Department [place] [address] * (ABNORMAL) CBC without differential (08/22/2024 6:02 AM PASTA MAKER) [facility] WBC 12.2(H) 3.8 - 9.9 K/cumm Hgb 11.8(L) 11.9 - 15.5 g/dL [facility] Hct 34.4(L) 35.6 - 45.5 % [facility] Plt 277 150 - 400 K/cumm [facility] MPV 10.4 9.1 - 12.3 fL [facility] RBC 4.02 3.90 - 5.20 M/cumm [facility] MCV 85.6 81.3 - 96.4 fL [facility] MCH 29.4 27.1 - 33.3 pg [facility] MCHC 34.3 32.3 - 35.7 g/dL [facility] RDW CV 13.6 11.1 - 14.9 % [facility] RDW SD 42.4 35.7 - 48.1 fL [facility] NRBC abs 0.00 0.00 - 0.01 K/cumm [facility] Blood 08/22/2024 6:02 AM PASTA MAKER 08/22/2024 6:18 AM PASTA MAKER Anastasia Amaro MD LAB BLOOD ORDERABLES Final Result Performing Organization Address City/[facility]/ZIP Co de Phone Number [facility] Department [place] [address] * Type and screen (08/22/2024 6:02 AM PASTA MAKER) Pathologist [facility] Abiodun, indirect Negative Comment:Patient has previous antibody history ABO Rh O Negative [facility] Blood 08/22/2024 6:02 AM PASTA MAKER 08/22/2024 6:24 AM PASTA MAKER Narrative [facility] - 08/22/2024 7:25 AM PASTA MAKER Has the patient had Daratumumab or Isatuximab in the past 6 months?->Unknown Anastasia Amaro MD LAB BLOOD BANK TEST ORDERA BLES Final Result [facility] [place] [address] * (ABNORMAL) Comprehensive metabolic panel (08/22/2024 6:02 AM PASTA MAKER) Sodium 138 135 - 145 mmol/L Potassium, pl 3.7 3.3 - 4.9 mmol/L [facility] Chloride 104 97 - 110 mmol/L [facility] CO2 23 22 - 32 mmol/L [facility] Anion gap 11 2 - 15 mmol/L [facility] BUN 7 6 - 25 mg/dL [facility] Creatinine 0.53(L) 0.60 - 1.10 mg/dL [facility] Glucose 72 70 - 199 mg/dL [facility] Comment: Interpretive Data Fasting glucose >/= 126 mg/dl is diagnostic for diabetes. ?? Fasting is defined as no caloric intake for at least 8 hours. Fasting glucose between 100 mg/dl to 125 mg/dl is diagnostic of prediabetes. In a patient with classic symptoms of hyperglycemia or hyperglycemic crisis, a random glucose >/= 200 mg/dl is diagnostic for diabetes. In the absence of unequivocal hyperglycemia, results should be confirmed by repeat testing. The classification and Diagnosis of Diabetes Diabetes Care 2021; 46: S19-S40. Current interpretive data was last revised 2022. Calcium 9.3 8.5 - 10.3 mg/dL [facility] Bilirubin, total 0.2 0.1 - 1.2 mg/dL [facility] Protein, pl 6.6 6.5 - 8.5 g/dL [facility] Albumin 3.2(L) 3.5 - 5.0 g/dL [facility] Alk phos 90 40 - 130 Units/L [facility] ALT 19 7 - 45 Units/L [facility] AST 18 10 - 45 Units/L [facility] Blood 08/22/2024 6:02 AM PASTA MAKER 08/22/2024 6:18 AM PASTA MAKER us Anastasia Amaro MD LAB BLOOD ORDERABLES Final Result Performing Organization Address [facility] Co de Phone Number [facility] Department [place] [address] * eGFR (08/19/2024 6:25 AM PASTA MAKER) eGFR >90 >=60 mL/min/1. 73 m2 Comment: Interpretive Data Reference Interval Normal ?>/= 90 mL/min/1.73m2 Mildly decreased* ? 60 - 89 mL/min/1.73m2 Mildly to moderately decreased ?45 - 59 mL/min/1.73m2 Moderately to severely decreased ??30 - 44 mL/min/1.73m2 Severely decreased ?15 - 29 mL/min/1.73m2 Kidney Failure ?< 15 ??mL/min/1.73m2 *Relative to young adult level Estimated glomerular filtration rate is determined by the 2020 CKD-EPI equation recommended by the National Kidney Foundation (A Unifying Approach to GFR Estimation: Recommendations of the NKF-ASK Task Force on Reassessing the Inclusion of Race in Diagnosing Kidney Disease, JASN 2020). The CKD-EPI equation should not be used for patients with unstable renal function and has not been validated in children and those over 70. Current interpretive data was last reviewed 2021. Blood 08/19/2024 6:25 AM PASTA MAKER 08/19/2024 7:23 AM PASTA MAKER us Anastasia Amaro MD LAB BLOOD ORDERABLES Final Result Performing Organization Address [facility]/ZIP Co de Phone Number [facility] Department [place] [address] * (ABNORMAL) CBC without differential (08/19/2024 6:25 AM PASTA MAKER) [facility] WBC 11.2(H) 3.8 - 9.9 K/cumm Hgb 11.3(L) 11.9 - 15.5 g/dL [facility] Hct 33.9(L) 35.6 - 45.5 % [facility] Plt 249 150 - 400 K/cumm [facility] MPV 10.6 9.1 - 12.3 fL [facility] RBC 3.89(L) 3.90 - 5.20 M/cumm [facility] MCV 87.1 81.3 - 96.4 fL [facility] MCH 29.0 27.1 - 33.3 pg [facility] MCHC 33.3 32.3 - 35.7 g/dL [facility] RDW CV 13.4 11.1 - 14.9 % [facility] RDW SD 42.5 35.7 - 48.1 fL [facility] NRBC abs 0.00 0.00 - 0.01 K/cumm [facility] Blood 08/19/2024 6:25 AM PASTA MAKER 08/19/2024 7:23 AM PASTA MAKER Anastasia Amaro MD LAB BLOOD ORDERABLES Final Result Performing Organization Address City/State/[facility] Co de Phone Number [facility] Department [place] [address] * Type and screen (08/19/2024 6:25 AM PASTA MAKER) [facility] Abiodun, indirect Negative ABO Rh O Negative [facility] Comment:Patient has previous antibody history Blood 08/19/2024 6:25 AM PASTA MAKER 08/19/2024 7:31 AM PASTA MAKER Narrative [facility] - 08/19/2024 8:22 AM PASTA MAKER Has the patient had Daratumumab or Isatuximab in the past 6 months?->Unknown us Anastasia Amaro MD LAB BLOOD BANK TEST ORDERA BLES Final Result [facility] [place] [address] * (ABNORMAL) Comprehensive metabolic panel (08/19/2024 6:25 AM PASTA MAKER) Sodium 138 135 - 145 mmol/L Potassium, pl 3.7 3.3 - 4.9 mmol/L [facility] Chloride 105 97 - 110 mmol/L [facility] CO2 23 22 - 32 mmol/L [facility] Anion gap 10 2 - 15 mmol/L [facility] BUN 7 6 - 25 mg/dL [facility] Creatinine 0.54(L) 0.60 - 1.10 mg/dL [facility] Glucose 68(L) 70 - 199 mg/dL [facility] Comment: Interpretive Data Fasting glucose >/= 126 mg/dl is diagnostic for diabetes. ?? Fasting is defined as no caloric intake for at least 8 hours. Fasting glucose between 100 mg/dl to 125 mg/dl is diagnostic of prediabetes. In a patient with classic symptoms of hyperglycemia or hyperglycemic crisis, a random glucose >/= 200 mg/dl is diagnostic for diabetes. In the absence of unequivocal hyperglycemia, results should be confirmed by repeat testing. The classification and Diagnosis of Diabetes Diabetes Care 2021; 46: S19-S40. Current interpretive data was last revised 2022. Calcium 9.3 8.5 - 10.3 mg/dL [facility] Bilirubin, total 0.2 0.1 - 1.2 mg/dL [facility] Protein, pl 6.3(L) 6.5 - 8.5 g/dL [facility] Albumin 3.0(L) 3.5 - 5.0 g/dL [facility] Alk phos 88 40 - 130 Units/L [facility] [facility] 13 7 - 45 Units/L [facility] AST 18 10 - 45 Units/L [facility] Blood 08/19/2024 6:25 AM PASTA MAKER 08/19/2024 7:23 AM PASTA MAKER us Anastasia Amaro MD LAB BLOOD ORDERABLES Final Result [facility] [place] [address] * US Ob Limited (08/16/2024 8:35 AM PASTA MAKER) Fetus# Fetus1 VIEWPOINT Placenta Details anterior VIEWPOINT Presentation Transverse, maternal right-low VIEWPOINT Fetus# Fetus2 VIEWPOINT Placenta Details anterior VIEWPOINT Presentation Vertex; Maternal left- high VIEWPOINT Anatomical Region Laterality Modality Abdomen N/A Ultrasound 08/16/2024 8:36 AM PASTA MAKER Impressions 08/16/2024 2:23 PM PASTA MAKER Diamniotic (presumed MCDA) TIUP at 29w1d who is admitted for preE with severe features who presents for ??TTTS screen.Chorionicity was not fully assessed but was previously determined to be monochorionic by the [facility] practice. Anatomic surveys were also completed there. 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 Transverse presentation. 2. The bladder and DVP are normal. 3. The UA, MCA, and DV Dopplers are normal. Twin 2 (left/high):1. Vertex presentation. 2. The bladder and DVP are normal. 3. The UA, MCA, and DV Dopplers are normal. 4. Unilateral mild left-sided ventriculomegaly is stable in appearance Narrative Procedure Note Nini Cortez MD - 08/16/2024 IMPRESSION: Diamniotic (presumed MCDA) TIUP at 29w1d who is admitted for preE withsevere features who presents for TTTS screen.Chorionicity was not fullyassessed but was previously determined to [facility]. Anatomic surveys were also completed there. A thin dividingmembrane and single placental mass is seen which would be consistent withthis diagnosis.Twin 1 (right/low):1. Transverse presentation. 2. Thebladder and DVP are normal. 3. The UA, MCA, and DV Dopplers are normal.Twin 2 (left/high):1. Vertex presentation. 2. The bladder and DVP arenormal. 3. The UA, MCA, and DV Dopplers are normal. 4. Unilateral mildleft-sided ventriculomegaly is stable in appearance us Anastasia Amaro MD IMG OB US PROCEDURES Final Result * Antibody identification (08/16/2024 7:34 AM PASTA MAKER) Pathologist [facility] Antibody ID 1 Passive Anti-D Blood 08/16/2024 7:34 AM PASTA MAKER 08/16/2024 7:34 AM PASTA MAKER us Anastasia Amaro MD LAB BLOOD BANK TEST ORDERA BLES Final Result [facility] Department [place] [address] * eGFR (08/16/2024 6:15 AM PASTA MAKER) [facility] eGFR >90 >=60 mL/min/1. 73 m2 Comment: Interpretive Data Reference Interval Normal ?>/= 90 mL/min/1.73m2 Mildly decreased* ? 60 - 89 mL/min/1.73m2 Mildly to moderately decreased ?45 - 59 mL/min/1.73m2 Moderately to severely decreased ??30 - 44 mL/min/1.73m2 Severely decreased ?15 - 29 mL/min/1.73m2 Kidney Failure ?< 15 ??mL/min/1.73m2 *Relative to young adult level Estimated glomerular filtration rate is determined by the 2020 CKD-EPI equation recommended by the National Kidney Foundation (A Unifying Approach to GFR Estimation: Recommendations of the NKF-ASK Task Force on Reassessing the Inclusion of Race in Diagnosing Kidney Disease, JASN 2020). The CKD-EPI equation should not be used for patients with unstable renal function and has not been validated in children and those over 70. Current interpretive data was last reviewed 2021. Blood 08/16/2024 6:15 AM PASTA MAKER 08/16/2024 6:29 AM PASTA MAKER Anastasia Amaro MD LAB BLOOD ORDERABLES Final Result Performing Organization Address City/[facility] Co de Phone Number [facility] [place] [address] * Thyroid Function [place] (08/16/2024 6:15 AM PASTA MAKER) [facility] TSH 3.83 0.30 - 4.20 mcIUnit/mL Blood 08/16/2024 6:15 AM PASTA MAKER 08/16/2024 6:29 AM PASTA MAKER Anastasia Amaro MD LAB BLOOD ORDERABLES Final Result Performing Organization Address [facility] de Phone Number [facility] [place] [address] * (ABNORMAL) CBC without differential (08/16/2024 6:15 AM PASTA MAKER) [facility] WBC 10.9(H) 3.8 - 9.9 K/cumm Hgb 11.6(L) 11.9 - 15.5 g/dL [facility] Hct 34.0(L) 35.6 - 45.5 % [facility] Plt 257 150 - 400 K/cumm [facility] MPV 10.4 9.1 - 12.3 fL [facility] RBC 3.95 3.90 - 5.20 M/cumm [facility] MCV 86.1 81.3 - 96.4 fL [facility] MCH 29.4 27.1 - 33.3 pg [facility] MCHC 34.1 32.3 - 35.7 g/dL [facility] RDW CV 13.3 11.1 - 14.9 % [facility] RDW SD 41.5 35.7 - 48.1 fL [facility] NRBC abs 0.00 0.00 - 0.01 K/cumm [facility] Blood 08/16/2024 6:15 AM PASTA MAKER 08/16/2024 6:30 AM PASTA MAKER Anastasia Amaro MD LAB BLOOD ORDERABLES Final Result Performing Organization Address [facility] Co de Phone Number [facility] [place] [address] * (ABNORMAL) Type and screen (08/16/2024 6:15 AM PASTA MAKER) [facility] Abiodun, indirect Positive(A) ABO Rh O Negative [facility] Blood 08/16/2024 6:15 AM PASTA MAKER 08/16/2024 6:25 AM PASTA MAKER Narrative [facility] - 08/16/2024 7:34 AM PASTA MAKER Has the patient had Daratumumab or Isatuximab in the past 6 months?->Unknown Anastasia Amaro MD LAB BLOOD BANK TEST ORDERA BLES Final Result Performing Organization Address [facility] de Phone Number [facility] [place] [address] * (ABNORMAL) Comprehensive metabolic panel (08/16/2024 6:15 AM PASTA MAKER) [facility] Sodium 139 135 - 145 mmol/L Potassium, pl 3.4 3.3 - 4.9 mmol/L [facility] Chloride 105 97 - 110 mmol/L [facility] CO2 23 22 - 32 mmol/L [facility] Anion gap 11 2 - 15 mmol/L [facility] BUN 8 6 - 25 mg/dL [facility] Creatinine 0.51(L) 0.60 - 1.10 mg/dL [facility] Glucose 72 70 - 199 mg/dL [facility] Comment: Interpretive Data Fasting glucose >/= 126 mg/dl is diagnostic for diabetes. ?? Fasting is defined as no caloric intake for at least 8 hours. Fasting glucose between 100 mg/dl to 125 mg/dl is diagnostic of prediabetes. In a patient with classic symptoms of hyperglycemia or hyperglycemic crisis, a random glucose >/= 200 mg/dl is diagnostic for diabetes. In the absence of unequivocal hyperglycemia, results should be confirmed by repeat testing. The classification and Diagnosis of Diabetes Diabetes Care 2021; 46: S19-S40. Current interpretive data was last revised 2022. Calcium 9.2 8.5 - 10.3 mg/dL [facility] Bilirubin, total 0.2 0.1 - 1.2 mg/dL [facility] Protein, pl 6.4(L) 6.5 - 8.5 g/dL [facility] Albumin 3.2(L) 3.5 - 5.0 g/dL [facility] Alk phos 86 40 - 130 Units/L [facility] ALT 16 7 - 45 Units/L [facility] AST 16 10 - 45 Units/L [facility] Blood 08/16/2024 6:15 AM PASTA MAKER 08/16/2024 6:29 AM PASTA MAKER us Anastasia Amaro MD LAB BLOOD ORDERABLES Final Result [facility] [place] [address] * POCT glucose (08/14/2024 3:06 PM PASTA MAKER) [facility] Glucose, POC 103 70 - 199 mg/dL Comment:Post Meal Glucose comment 1 Post Meal [facility] Blood 08/14/2024 3:06 PM PASTA MAKER 08/14/2024 3:06 PM PASTA MAKER us Anastasia Amaro MD LAB POCT ORDERABLES - JELENA CE Final Result Performing Organization Address [facility]/ZIP Co de Phone Number [facility] Department [place] [address] * ECG 12 lead (08/13/2024 9:02 AM PASTA MAKER) [facility] Ventricular Rate EKG/Min 122 BPM [facility] Atrial Rate 122 BPM [facility] MA-Interval (MSEC) 132 ms [facility] QRS-Interval (MSEC) 80 ms [facility] QT-Interval (MSEC) 324 ms [facility] QTc 461 ms [facility] P [place] 49 degrees [facility] R [place] 18 degrees [facility] T [place] 29 degrees [facility] Diagnosis Sinus tachycardia Otherwise normal ECG When compared with ECG of 04-AUG-2024 17:45, No significant change was found Confirmed by SAMANTA KAPLAN M.D ([id number]) on 08/15/2024 12:21:02 PM [facility] 08/13/2024 9:02 AM PASTA MAKER 08/15/2024 12:21 PM PASTA MAKER us Anastasia Amaro MD ECG ORDERABLES Final Resu lt Performing Organization Address City/[facility] Co de Phone Number [facility] * Antibody identification (08/13/2024 7:42 AM PASTA MAKER) [facility] Antibody ID 1 Passive Anti-D Blood 08/13/2024 7:42 AM PASTA MAKER 08/13/2024 7:42 AM PASTA MAKER us Anastasia Amaro MD LAB BLOOD BANK TEST ORDERA BLES Final Result Performing Organization Address City/[facility] Co de Phone Number [facility] Department [place] [address] * eGFR (08/13/2024 5:44 AM PASTA MAKER) [facility] eGFR >90 >=60 mL/min/1. 73 m2 Comment: Interpretive Data Reference Interval Normal ?>/= 90 mL/min/1.73m2 Mildly decreased* ? 60 - 89 mL/min/1.73m2 Mildly to moderately decreased ?45 - 59 mL/min/1.73m2 Moderately to severely decreased ??30 - 44 mL/min/1.73m2 Severely decreased ?15 - 29 mL/min/1.73m2 Kidney Failure ?< 15 ??mL/min/1.73m2 *Relative to young adult level Estimated glomerular filtration rate is determined by the 2020 CKD-EPI equation recommended by the National Kidney Foundation (A Unifying Approach to GFR Estimation: Recommendations of the NKF-ASK Task Force on Reassessing the Inclusion of Race in Diagnosing Kidney Disease, JASN 2020). The CKD-EPI equation should not be used for patients with unstable renal function and has not been validated in children and those over 70. Current interpretive data was last reviewed 2021. Blood 08/13/2024 5:44 AM PASTA MAKER 08/13/2024 6:05 AM PASTA MAKER us Anastasia Amaro MD LAB BLOOD ORDERABLES Final Result Performing Organization Address [facility] Co de Phone Number [facility] [place] [address] * HIV 1/2 Antibody plus p24 Antigen Blood (08/13/2024 5:44 AM PASTA MAKER) HIV 1/2 ab + p24 ag Nonreactive Nonreactive Comment:Nonreactive for HIV- 1 antigen and HIV-1/HIV-2 antibodies. No laboratory evidence of HIV infection. If acute HIV infection is suspected, consider testing for HIV-1 RNA. Current interpretive data was last revised on 22. Blood 08/13/2024 5:44 AM PASTA MAKER 08/13/2024 6:05 AM PASTA MAKER us Anastasia Amaro MD LAB MICROBIOLOGY - GENERAL ORDERABLES Final Result [facility] [place] [address] * RPR Blood (08/13/2024 5:44 AM PASTA MAKER) [facility] RPR Nonreactive Nonreactive Blood 08/13/2024 5:44 AM PASTA MAKER 08/13/2024 6:05 AM PASTA MAKER Anastasia Amaro MD LAB MICROBIOLOGY - GENERAL ORDERABLES Final Result Performing Organization Address City/[facility]/[place] [address] * (ABNORMAL) CBC without differential (08/13/2024 5:44 AM PASTA MAKER) [facility] WBC 12.4(H) 3.8 - 9.9 K/cumm Hgb 11.8(L) 11.9 - 15.5 g/dL [facility] Hct 34.4(L) 35.6 - 45.5 % [facility] Plt 295 150 - 400 K/cumm [facility] MPV 10.3 9.1 - 12.3 fL [facility] RBC 3.93 3.90 - 5.20 M/cumm [facility] MCV 87.5 81.3 - 96.4 fL [facility] MCH 30.0 27.1 - 33.3 pg [facility] MCHC 34.3 32.3 - 35.7 g/dL [facility] RDW CV 13.6 11.1 - 14.9 % [facility] RDW SD 43.5 35.7 - 48.1 fL [facility] NRBC abs 0.00 0.00 - 0.01 K/cumm [facility] Blood 08/13/2024 5:44 AM PASTA MAKER 08/13/2024 6:05 AM PASTA MAKER Anastasia Amaro MD LAB BLOOD ORDERABLES Final Result Performing Organization Address City/[facility]/[place] [address] * (ABNORMAL) Type and screen (08/13/2024 5:44 AM PASTA MAKER) ABO Rh O Negative Abiodun, indirect Positive(A) [facility] Blood 08/13/2024 5:44 AM PASTA MAKER 08/13/2024 6:19 AM PASTA MAKER Narrative [facility] - 08/13/2024 7:42 AM PASTA MAKER Has the patient had Daratumumab or Isatuximab in the past 6 months?->Unknown us Anastasia Amaro MD LAB BLOOD BANK TEST ORDERA BLES Final Result [facility] [place] [address] * (ABNORMAL) Comprehensive metabolic panel (08/13/2024 5:44 AM PASTA MAKER) Sodium 137 135 - 145 mmol/L Potassium, pl 3.7 3.3 - 4.9 mmol/L [facility] Chloride 104 97 - 110 mmol/L [facility] CO2 22 22 - 32 mmol/L [facility] Anion gap 11 2 - 15 mmol/L [facility] BUN 8 6 - 25 mg/dL [facility] Creatinine 0.49(L) 0.60 - 1.10 mg/dL [facility] Glucose 74 70 - 199 mg/dL [facility] Comment: Interpretive Data Fasting glucose >/= 126 mg/dl is diagnostic for diabetes. ?? Fasting is defined as no caloric intake for at least 8 hours. Fasting glucose between 100 mg/dl to 125 mg/dl is diagnostic of prediabetes. In a patient with classic symptoms of hyperglycemia or hyperglycemic crisis, a random glucose >/= 200 mg/dl is diagnostic for diabetes. In the absence of unequivocal hyperglycemia, results should be confirmed by repeat testing. The classification and Diagnosis of Diabetes Diabetes Care 202; 46: S19-S40. Current interpretive data was last revised 2022. Calcium 9.4 8.5 - 10.3 mg/dL [facility] Bilirubin, total 0.3 0.1 - 1.2 mg/dL [facility] Protein, pl 6.5 6.5 - 8.5 g/dL [facility] Albumin 3.3(L) 3.5 - 5.0 g/dL [facility] Alk phos 85 40 - 130 Units/L [facility] ALT 21 7 - 45 Units/L [facility] AST 19 10 - 45 Units/L [facility] Blood 08/13/2024 5:44 AM PASTA MAKER 08/13/2024 6:05 AM PASTA MAKER Anastasia Amaro MD LAB BLOOD ORDERABLES Final Result Performing Organization Address City/[facility] Co de Phone Number [facility] [place] [address] * GTT 50gm 1hr gestational screen (08/12/2024 11:29 AM PASTA MAKER) GTT 50g gest screen 106 <=140 mg/dL Comment: Interpretive Data Used for suspected gestational diabetes. The screening test uses 50 grams of glucose with sample obtained 1 hr later. Normal range: < 140 mg/dL. A glucose value of >140 mg/dL generally indicates the need for a full diagnostic tolerance test. Reference Interval Info: Diabetes Care 2005, Vol 28. Supplement 1,S37-S42. Report of the Expert Committee on the Diagnosis and Classification of Diabetes Mellitus. Diabetes Care 2020; 43(Supplement 1):S14-31. Current interpretive data was last revised on 2020. Blood 08/12/2024 11:2 9 AM PASTA MAKER 08/12/2024 11:41 AM PASTA MAKER Anastasia Amaro MD LAB BLOOD ORDERABLES Final Result Performing Organization Address [facility]/ZIP Co de Phone Number [facility] [place] [address] * Antibody identification (08/10/2024 7:02 AM PASTA MAKER) Antibody ID 1 Passive Anti-D Blood 08/10/2024 7:02 AM PASTA MAKER 08/10/2024 7:02 AM PASTA MAKER us Anastasia Amaro MD LAB BLOOD BANK TEST ORDERA BLES Final Result Performing Organization Address City/[facility]/ZIP Co de Phone Number [facility] Department [place] [address] * eGFR (08/10/2024 4:49 AM PASTA MAKER) eGFR >90 >=60 mL/min/1. 73 m2 Comment: Interpretive Data Reference Interval Normal ?>/= 90 mL/min/1.73m2 Mildly decreased* ? 60 - 89 mL/min/1.73m2 Mildly to moderately decreased ?45 - 59 mL/min/1.73m2 Moderately to severely decreased ??30 - 44 mL/min/1.73m2 Severely decreased ?15 - 29 mL/min/1.73m2 Kidney Failure ?< 15 ??mL/min/1.73m2 *Relative to young adult level Estimated glomerular filtration rate is determined by the 2020 CKD-EPI equation recommended by the National Kidney Foundation (A Unifying Approach to GFR Estimation: Recommendations of the NKF-ASK Task Force on Reassessing the Inclusion of Race in Diagnosing Kidney Disease, JASN 2020). The CKD-EPI equation should not be used for patients with unstable renal function and has not been validated in children and those over 70. Current interpretive data was last reviewed 2021. Blood 08/10/2024 4:49 AM PASTA MAKER 08/10/2024 5:31 AM PASTA MAKER us Anastasia Amaro MD LAB BLOOD ORDERABLES Final Result Performing Organization Address City/[facility]/ZIP Co de Phone Number [facility] Department [place] [address] * (ABNORMAL) CBC without differential (08/10/2024 4:49 AM PASTA MAKER) Pathologist [facility] WBC 11.7(H) 3.8 - 9.9 K/cumm Hgb 11.7(L) 11.9 - 15.5 g/dL [facility] Hct 35.0(L) 35.6 - 45.5 % [facility] Plt 293 150 - 400 K/cumm [facility] MPV 10.5 9.1 - 12.3 fL [facility] RBC 4.00 3.90 - 5.20 M/cumm [facility] MCV 87.5 81.3 - 96.4 fL [facility] MCH 29.3 27.1 - 33.3 pg [facility] MCHC 33.4 32.3 - 35.7 g/dL [facility] RDW CV 13.7 11.1 - 14.9 % [facility] RDW SD 43.8 35.7 - 48.1 fL [facility] NRBC abs 0.00 0.00 - 0.01 K/cumm [facility] Blood 08/10/2024 4:49 AM PASTA MAKER 08/10/2024 5:42 AM PASTA MAKER Anastasia Amaro MD LAB BLOOD ORDERABLES Final Result Performing Organization Address [facility]/State/ZIP Co de Phone Number [facility] [place] [address] * (ABNORMAL) Type and screen (08/10/2024 4:49 AM PASTA MAKER) Pathologist [facility] Abiodun, indirect Positive(A) ABO Rh O Negative [facility] Blood 08/10/2024 4:49 AM PASTA MAKER 08/10/2024 6:04 AM PASTA MAKER Narrative [facility] - 08/10/2024 7:02 AM PASTA MAKER Has the patient had Daratumumab or Isatuximab in the past 6 months?->Unknown Anastasia Amaro MD LAB BLOOD BANK TEST ORDERA BLES Final Result Performing Organization Address City/[facility]/ZIP Co de Phone Number [facility] [place] [address] * (ABNORMAL) Comprehensive metabolic panel (08/10/2024 4:49 AM PASTA MAKER) Sodium 135 135 - 145 mmol/L Potassium, pl 3.5 3.3 - 4.9 mmol/L [facility] Chloride 102 97 - 110 mmol/L [facility] CO2 22 22 - 32 mmol/L [facility] Anion gap 11 2 - 15 mmol/L [facility] BUN 9 6 - 25 mg/dL [facility] Creatinine 0.51(L) 0.60 - 1.10 mg/dL [facility] Glucose 79 70 - 199 mg/dL [facility] Comment: Interpretive Data Fasting glucose >/= 126 mg/dl is diagnostic for diabetes. ?? Fasting is defined as no caloric intake for at least 8 hours. Fasting glucose between 100 mg/dl to 125 mg/dl is diagnostic of prediabetes. In a patient with classic symptoms of hyperglycemia or hyperglycemic crisis, a random glucose >/= 200 mg/dl is diagnostic for diabetes. In the absence of unequivocal hyperglycemia, results should be confirmed by repeat testing. The classification and Diagnosis of Diabetes Diabetes Care 2021; 46: S19-S40. Current interpretive data was last revised 2022. Calcium 9.2 8.5 - 10.3 mg/dL [facility] Bilirubin, total 0.2 0.1 - 1.2 mg/dL [facility] Protein, pl 6.6 6.5 - 8.5 g/dL [facility] Albumin 3.2(L) 3.5 - 5.0 g/dL [facility] Alk phos 85 40 - 130 Units/L [facility] ALT 22 7 - 45 Units/L [facility] AST 19 10 - 45 Units/L [facility] Blood 08/10/2024 4:49 AM PASTA MAKER 08/10/2024 5:31 AM PASTA MAKER us Anastasia Amaro MD LAB BLOOD ORDERABLES Final Result [facility] [place] [address] * US Ob 14 Weeks Or Over (08/09/2024 9:47 AM PASTA MAKER) Fetus# Fetus1 VIEWPOINT Placenta Details anterior VIEWPOINT Presentation Vertex; Maternal right- low VIEWPOINT Fetus# Fetus2 VIEWPOINT Placenta Details anterior VIEWPOINT Presentation Vertex; Maternal left- high VIEWPOINT Anatomical Region Laterality Modality Abdomen N/A Ultrasound 08/09/2024 9:50 AM PASTA MAKER Impressions 08/09/2024 11:52 AM PASTA MAKER 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 Chorionicity was not fully assessed but was previously determined to be monochorionic by the [facility] practice. Anatomic surveys were also completed there. 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 Vertex presentation. 2. The bladder and DVP are normal. 3. The UA, MCA, and DV Dopplers are normal. 4. The intracranial anatomy appears normal Twin 2 (left/high):1. Vertex presentation. 2. The bladder and DVP are normal. 3. The UA, MCA, and DV Dopplers are normal. 5. Unilateral. mild left- sided ventriculomegaly. The right lateral ventricle is suboptimally imaged but appears normal in sizeNo evidence of TTTS. Twin 2 with mild left-sided ventriculomegaly Narrative Procedure Note Sara Eng MD - 08/09/2024 IMPRESSION: Diamniotic (presumed MCDA) TIUP at 28w1d who is admitted for preE withsevere features who presents for TTTS screen and evaluation ofintracranial anatomy. Chorionicity was not fully assessed but waspreviously determined to be monochorionic by the [facility] practice.Anatomic surveys were also completed there. A thin dividing membrane andsingle placental mass is seen which would be consistent with thisdiagnosis.Twin 1 (right/low):1. Vertex presentation. 2. The bladder andDVP are normal. 3. The UA, MCA, and DV Dopplers are normal. 4. Theintracranial anatomy appears normal Twin 2 (left/high):1. Vertexpresentation. 2. The bladder and DVP are normal. 3. The UA, MCA, and DVDopplers are normal. 5. Unilateral. mild left-sided ventriculomegaly. Theright lateral ventricle is suboptimally imaged but appears normal insizeNo evidence of TTTS. Twin 2 with mild left-sided ventriculomegaly us Anastasia Amaro MD IMG OB US PROCEDURES Final Result * Antibody identification (08/07/2024 6:51 AM PASTA MAKER) [facility] Antibody ID 1 Passive Anti-D Blood 08/07/2024 6:51 AM PASTA MAKER 08/07/2024 6:51 AM PASTA MAKER us Anastasia Amaro MD LAB BLOOD BANK TEST ORDERA BLES Final Result [facility] [place] [address] * eGFR (08/07/2024 5:00 AM PASTA MAKER) [facility] eGFR >90 >=60 mL/min/1. 73 m2 Comment: Interpretive Data Reference Interval Normal ?>/= 90 mL/min/1.73m2 Mildly decreased* ? 60 - 89 mL/min/1.73m2 Mildly to moderately decreased ?45 - 59 mL/min/1.73m2 Moderately to severely decreased ??30 - 44 mL/min/1.73m2 Severely decreased ?15 - 29 mL/min/1.73m2 Kidney Failure ?< 15 ??mL/min/1.73m2 *Relative to young adult level Estimated glomerular filtration rate is determined by the 2020 CKD-EPI equation recommended by the National Kidney Foundation (A Unifying Approach to GFR Estimation: Recommendations of the NKF-ASK Task Force on Reassessing the Inclusion of Race in Diagnosing Kidney Disease, JASN 2020). The CKD-EPI equation should not be used for patients with unstable renal function and has not been validated in children and those over 70. Current interpretive data was last reviewed 2021. Blood 08/07/2024 5:00 AM PASTA MAKER 08/07/2024 4:56 AM PASTA MAKER us Anastasia Amaro MD LAB BLOOD ORDERABLES Final Result [facility] [place] [address] * (ABNORMAL) CBC without differential (08/07/2024 5:00 AM PASTA MAKER) WBC 10.2(H) 3.8 - 9.9 K/cumm Hgb 12.0 11.9 - 15.5 g/dL [facility] Hct 35.0(L) 35.6 - 45.5 % [facility] Plt 261 150 - 400 K/cumm [facility] MPV 10.2 9.1 - 12.3 fL [facility] RBC 4.02 3.90 - 5.20 M/cumm [facility] MCV 87.1 81.3 - 96.4 fL [facility] MCH 29.9 27.1 - 33.3 pg [facility] MCHC 34.3 32.3 - 35.7 g/dL [facility] RDW CV 13.8 11.1 - 14.9 % [facility] RDW SD 44.4 35.7 - 48.1 fL [facility] NRBC abs 0.00 0.00 - 0.01 K/cumm [facility] Blood 08/07/2024 5:00 AM PASTA MAKER 08/07/2024 4:56 AM PASTA MAKER us Anastasia Amaro MD LAB BLOOD ORDERABLES Final Result Performing Organization Address City/State/[facility] Co de Phone Number [facility] [place] [address] * (ABNORMAL) Comprehensive metabolic panel (08/07/2024 5:00 AM PASTA MAKER) Sodium 138 135 - 145 mmol/L Potassium, pl 3.6 3.3 - 4.9 mmol/L [facility] Chloride 105 97 - 110 mmol/L [facility] CO2 22 22 - 32 mmol/L [facility] Anion gap 11 2 - 15 mmol/L [facility] BUN 7 6 - 25 mg/dL [facility] Creatinine 0.47(L) 0.60 - 1.10 mg/dL [facility] Glucose 84 70 - 199 mg/dL [facility] Comment: Interpretive Data Fasting glucose >/= 126 mg/dl is diagnostic for diabetes. ?? Fasting is defined as no caloric intake for at least 8 hours. Fasting glucose between 100 mg/dl to 125 mg/dl is diagnostic of prediabetes. In a patient with classic symptoms of hyperglycemia or hyperglycemic crisis, a random glucose >/= 200 mg/dl is diagnostic for diabetes. In the absence of unequivocal hyperglycemia, results should be confirmed by repeat testing. The classification and Diagnosis of Diabetes Diabetes Care 202; 46: S19-S40. Current interpretive data was last revised 2022. Calcium 9.3 8.5 - 10.3 mg/dL [facility] Bilirubin, total 0.2 0.1 - 1.2 mg/dL [facility] Protein, pl 6.3(L) 6.5 - 8.5 g/dL [facility] Albumin 3.1(L) 3.5 - 5.0 g/dL [facility] Alk phos 80 40 - 130 Units/L [facility] ALT 26 7 - 45 Units/L [facility] AST 16 10 - 45 Units/L [facility] Blood 08/07/2024 5:00 AM PASTA MAKER 08/07/2024 4:56 AM PASTA MAKER Anastsaia Amaro MD LAB BLOOD ORDERABLES Final Result Performing Organization Address City/State/[facility] Co de Phone Number [facility] Department [place] [address] * (ABNORMAL) Type and screen (08/07/2024 4:45 AM PASTA MAKER) Abiodun, indirect Positive(A) ABO Rh O Negative [facility] Blood 08/07/2024 4:45 AM PASTA MAKER 08/07/2024 5:12 AM PASTA MAKER Narrative [facility] - 08/07/2024 6:51 AM PASTA MAKER Has the patient had Daratumumab or Isatuximab in the past 6 months?->Unknown Anastasia Amaro MD LAB BLOOD BANK TEST ORDERA BLES Final Result Performing Organization Address [facility] de Phone Number [facility] [place] [address] * CT Chest PE (CTA) W Contrast (08/05/2024 12:52 AM CDT) Anatomical Region Laterality Modality Body N/A Computed Tomogra phy 08/05/2024 1:27 AM CDT Impressions 08/05/2024 10:53 AM CDT Limited examination due to transient interruption of the contrast bolus. Within these limitations, however: 1. No acute-appearing large central pulmonary embolism. 2. No acute pulmonary parenchymal process, specifically no evidence of pulmonary edema or volume overload. Dictated by: Anderson Gurrola M.D. The radiology attending physician has personally reviewed this study, and had reviewed and/or edited this written report and agrees with it. Electronically signed by: Morgan Mendiola M.D. Narrative 08/05/2024 10:53 AM CDT EXAMINATION: CT CHEST PE (CTA) W CONTRAST HISTORY: 26 weeks with newly diagnosed preeclampsia TECHNIQUE: Computed tomographic images were acquired using a chest angiographic protocol optimized for pulmonary embolism. ??Contrast enhanced transaxial images were obtained following the intravenous administration of 93 ml of nonionic contrast. ??Multiplanar reformatted images and three-dimensional images were obtained on the 3-D workstation and sent to the PACS archival system. ?? COMPARISON: None FINDINGS: There is transient interruption of the contrast bolus was suboptimal opacification of the vessels. Within these limitations, there is no acute, large or central pulmonary emboli. Heart size is normal. There is a small pericardial effusion, extending into the superior pericardial recess is. This may be sequela of patient's gravid state. No pneumothorax, significant pulmonary edema, pleural effusion, laceration, suspicious pulmonary mass. Main pulmonary artery is normal in caliber. Minimally prominent/ectatic thoracic ascending aorta measuring 3.7 x 3.6 cm on double oblique reformats. No acute aortic syndrome. Within the limits of contrast bolus no abnormality within the coronary arteries. Tiny hiatal hernia. Partially imaged upper abdomen does not demonstrate any acute, unexpected finding. No suspicious osseous lesions. Procedure Note Morgan Mendiola MD - 08/05/2024 EXAMINATION: CT CHEST PE (CTA) W CONTRAST HISTORY: 26 weeks with newly diagnosed preeclampsia TECHNIQUE: Computed tomographic images were acquired using a chest angiographic protocol optimized for pulmonary embolism. Contrast enhanced transaxial images were obtained following the intravenous administration of 93 ml of nonionic contrast. Multiplanar reformatted images and three-dimensional images were obtained on the 3-D workstation and sent to the PACS archival system. COMPARISON: None FINDINGS: There is transient interruption of the contrast bolus was suboptimal opacification of the vessels. Within these limitations, there is no acute, large or central pulmonary emboli. Heart size is normal. There is a small pericardial effusion, extending into the superior pericardial recess is. This may be sequela of patient's gravid state. No pneumothorax, significant pulmonary edema, pleural effusion, laceration, suspicious pulmonary mass. Main pulmonary artery is normal in caliber. Minimally prominent/ectatic thoracic ascending aorta measuring 3.7 x 3.6 cm on double oblique reformats. No acute aortic syndrome. Within the limits of contrast bolus no abnormality within the coronary arteries. Tiny hiatal hernia. Partially imaged upper abdomen does not demonstrate any acute, unexpected finding. No suspicious osseous lesions. IMPRESSION: Limited examination due to transient interruption of the contrast bolus. Within these limitations, however: 1. No acute-appearing large central pulmonary embolism. 2. No acute pulmonary parenchymal process, specifically no evidence of pulmonary edema or volume overload. Dictated by: Anderson Gurrola M.D. The radiology attending physician has personally reviewed this study, and had reviewed and/or edited this written report and agrees with it. Electronically signed by: Morgan Mendiola M.D. Anastasia Amaro MD IM CT PROCEDURES Final Re sult * Respiratory pathogen panel Nasopharyngeal (08/04/2024 6:28 PM CDT) Pathologist [facility] Influenza A RNA Not Detected Not Detected Influenza B RNA Not Detected Not Detected [facility] RSV RNA Not Detected Not Detected [facility] COVID-19 RNA Not Detected Not Detected [facility] Coronavirus 229E RNA Not Detected Not Detected [facility] Coronavirus HKU1 RNA Not Detected Not Detected [facility] Coronavirus NL63 RNA Not Detected Not Detected [facility] Coronavirus OC43 RNA Not Detected Not Detected [facility] Adenovirus DNA Not Detected Not Detected [facility] Metapneumovirus RNA Not Detected Not Detected [facility] Rhinovirus/Enterov irus RNA Not Detected Not Detected [facility] Parainfluenza 1 RNA Not Detected Not Detected [facility] Parainfluenza 2 RNA Not Detected Not Detected [facility] Parainfluenza 3 RNA Not Detected Not Detected [facility] Parainfluenza 4 RNA Not Detected Not Detected [facility] B. pertussis DNA Not Detected Not Detected [facility] B. parapertussis DNA Not Detected Not Detected [facility] C. pneumoniae DNA Not Detected Not Detected [facility] M. pneumoniae DNA Not Detected Not Detected [facility] Nasopharyngeal 08/04/2024 6: 28 PM CDT 08/04/2024 6:48 PM CDT Narrative [facility] - 08/04/2024 8:16 PM CDT Is the Patient experiencing symptoms consistent with COVID?->No Surveillance testing for transplant patient?->No ??Interpretive Data The [employer] FilmArray Respiratory Panel (RP2.1) assay is a multiplexed real-time PCR based nucleic acid test capable of simultaneous qualitative detection and identification of multiple respiratory viral and bacterial nucleic acids, including SARS Coronavirus 2 (the causative agent of COVID-19). The following bacteria, viruses and virus subtypes can be identified using the FilmArray RP2.1 assay: Bordetella pertussis, Bordetella parapertussis, Chlamydia pneumoniae, Mycoplasma pneumoniae, Adenovirus, SARS Coronavirus 2, seasonal coronaviruses (Coronavirus HKU1, Coronavirus NL63, Coronavirus 229E, and Coronavirus OC43), Influenza A, Influenza A subtype H1, Influenza A subtype H3, Influenza A subtype 2009 H1, Influenza B, Metapneumovirus, Parainfluenza 1, Parainfluenza 2, Parainfluenza 3, Parainfluenza 4, RSV, Rhinovirus/Enterovirus. Due to the genetic similarity between human Rhinovirus and Enterovirus, the FilmArray RP2.1 assay cannot reliably differentiate them. Coronavirus OC43 may cross-react with some isolates of Coronavirus HKU1. ??A dual positive result may be due to cross-reactivity or may indicate a co-infection. The detection and identification of specific viral and bacterial nucleic acids from individuals exhibiting signs and symptoms of a respiratory infection aids in the diagnosis of respiratory infection if used in conjunction with other clinical and epidemiological information. ??The results of this test should not be used as the sole basis for diagnosis, treatment, or other management decisions. ??Negative results in the setting of a respiratory illness may be due to infection with pathogens that are not detected by this test. ??Positive results do not rule out infection/co-infection with other organisms. ??The agent(s) detected by the FilmArray RP2.1 may not be the definite cause of disease. ??Additional testing (lab, imaging, etc.) may be necessary when evaluating a patient with possible respiratory tract infection. The FilmArray RP2.1 assay has FDA clearance for testing of [employer] swabs. ??The performance of additional specimen types has been assessed by the performing laboratory. ??The performance characteristics of this assay have been determined by [facility] Molecular Infectious Disease Laboratory. Current interpretive data was last revised on 22. us Anastasia Amaro MD LAB MICROBIOLOGY - GENERAL ORDERABLES Final Result [facility] [place] [address] * (ABNORMAL) D-dimer, quantitative (08/04/2024 6:28 PM CDT) D-Dimer 1,101(H) <=499 ng/mL FEU Comment: Interpretive data FDA approved the D-dimer, in conjunction with a low or moderate pretest probability score, to exclude venous thromboembolic events (VTE) (PE and DVT) in outpatients when the D-dimer result is < 500 ng/ml FEU. ?? Evidence supports using an age-adjusted D-dimer cut-off for outpatients older than 50 (age x 10) to improve specificity without sacrificing sensitivity. Example: age 68, VTE cut-off 680 ng/ml FEU. References; Schouten HT et al. Brit Med J. 2013;346:f2492. Festus et al. Annals Int Med. 2015;163:701-11. Current interpretive data was last revised on 2019. Blood 08/04/2024 6:28 PM CDT 08/04/2024 6:55 PM CDT us Anastasia Amaro MD LAB BLOOD ORDERABLES Final Result [facility] [place] [address] * ECG 12 lead (08/04/2024 5:45 PM CDT) Ventricular Rate EKG/Min 131 BPM [facility] Atrial Rate 131 BPM [facility] MA-Interval (MSEC) 126 ms [facility] QRS-Interval (MSEC) 74 ms [facility] QT-Interval (MSEC) 300 ms [facility] QTc 443 ms [facility] P [place] 53 degrees [facility] R [place] 8 degrees [facility] T [place] 33 degrees [facility] Diagnosis Sinus tachycardia Otherwise normal ECG Confirmed by Delores ARBOLEDA, [facility] ([id number]) on 08/08/2024 3:27:38 AM [facility] 08/04/2024 5:45 PM CDT 08/08/2024 3:27 AM PASTA MAKER Anastasia Amaro MD ECG ORDERABLES Final Resu lt Performing Organization Address [facility] de Phone Number [facility] * ECG 12 lead (08/04/2024 11:54 AM CDT) Pathologist [facility] Ventricular Rate EKG/Min 110 BPM [facility] Atrial Rate 110 BPM [facility] MA-Interval (MSEC) 122 ms [facility] QRS-Interval (MSEC) 78 ms [facility] QT-Interval (MSEC) 334 ms [facility] QTc 452 ms [facility] P [place] 52 degrees [facility] R [place] 5 degrees [facility] T [place] 25 degrees [facility] Diagnosis Sinus tachycardia Otherwise normal ECG No previous ECGs available Confirmed by SAMANTA KAPLAN M.D ([id number]) on 08/04/2024 1:23:30 PM [facility] 08/04/2024 11:5 4 AM CDT 08/04/2024 1:23 PM CDT Anastasia Amaro MD ECG ORDERABLES Final Resu lt Performing Organization Address [facility] de Phone Number [facility] * Antibody identification (08/04/2024 6:12 AM CDT) Pathologist [facility] Antibody ID 1 Passive Anti-D Blood 08/04/2024 6:12 AM CDT 08/04/2024 6:12 AM CDT Anastasia Amaro MD LAB BLOOD BANK TEST ORDERA BLES Final Result Performing Organization Address [facility] Co de Phone Number [facility] [place] [address] * Lupus Anticoagulant Panel plus Reflexes (08/04/2024 4:48 AM CDT) Pathologist [facility] PT 11.6 9.7 - 13.0 sec INR 1.07 0.90 - 1.20 [facility] Comment: Interpretive data Oral anticoagulant therapeutic ranges: Venous thromboembolism prophylaxis or treatment: 2.0-3.0 CARDIOLOGY Standard range: 2.0-3.0 High-intensity range: 2.5-3.5 Refer to indication-specific guidelines for appropriate target ranges for prosthetic heart valve replacement. Current interpretive data was last revised on 2019. aPTT 29 28 - 38 sec [facility] Comment: Interpretive Data Heparin therapeutic range: 66.0 - 100.0 seconds. Range based on correlation with therapeutic heparin activity range of 0.3 - 0.7 Units/mL. Current interpretive data was last revised on 2023. DRVVT screen ratio 1.13 0.00 - 1.20 Ratio [facility] SCT Screen Ratio 1.01 0.00 - 1.16 Ratio [facility] Lupus anticoagulant, interp Negative [facility] Comment: Interpretive data ?? Lupus anticoagulants (LA) are acquired autoantibodies that interfere with invitro clotting in a phospholipid-dependent manner and are associated with an increased risk of thromboembolic events and complications. ?? Routine APTT and PT reagents are not sensitive to inhibition by LA, and should not be used as screening tests. ? The laboratory follows ISTH 2009 guidelines (Pengo, 2009) for LA testing and interpretation: Two sensitive methods performed in parallel improve sensitivity. One activates the intrinsic pathway (Silica-APTT) and one activates the common pathway (dilute Jose Antonio's viper venom time - dRVVT). ?? Each method begins with a SCREEN step, and if neither is prolonged, no further testing is performed and the interpretation is: NO LA DETECTED. ?? If either screening test is prolonged, then additional steps are performed to provide specificity. A POSITIVE LA result occurs if either one or both tests produce a positive CONFIRM result. ?? An INDETERMINATE result means results cannot distinguish between coagulopathy and a weak LA. Consider retesting when PT/INR is less prolonged, if clinical indicated. ?? To support laboratory confirmation of antiphospholipid syndrome, persistence of a positive LA result should be verified by repeat testing at least 12 weeks later (Andrew, 2006). ?? Prior to LA testing, the laboratory screens patient plasma samples for evidence of heparin contamination, which is neutralized prior to LA testing, and the following interfering conditions which require canceling LA testing: INR >3.0, fibrinogen < 100 mg/dl, use of direct oral or IV anticoagulants other than heparin. ?? References: 1) Neilo V, Herlinda A, [place] JH, Orarelyl TL, [place] M, De Americo PG. Update of the guidelines for lupus anticoagulant detection. J Thromb Haemost. 2009; 7:3235-7556. 2. Andrew Willson et al. International consensus statement on an update of the classification criteria for definite antiphospholipid syndrome (APS). J Thromb Haemost. 2006; 4:295-306. Current interpretive data was last revised on 2018 Blood 08/04/2024 4:48 AM CDT 08/04/2024 5:21 AM CDT Anastasia Amaro MD LAB BLOOD ORDERABLES Final Result Performing Organization Address City/State/ZIP Co vt Phone Number [facility] [place] [address] * eGFR (08/04/2024 4:48 AM CDT) eGFR >90 >=60 mL/min/1. 73 m2 Comment: Interpretive Data Reference Interval Normal ?>/= 90 mL/min/1.73m2 Mildly decreased* ? 60 - 89 mL/min/1.73m2 Mildly to moderately decreased ?45 - 59 mL/min/1.73m2 Moderately to severely decreased ??30 - 44 mL/min/1.73m2 Severely decreased ?15 - 29 mL/min/1.73m2 Kidney Failure ?< 15 ??mL/min/1.73m2 *Relative to young adult level Estimated glomerular filtration rate is determined by the 2020 CKD-EPI equation recommended by the National Kidney Foundation (A Unifying Approach to GFR Estimation: Recommendations of the NKF-ASK Task Force on Reassessing the Inclusion of Race in Diagnosing Kidney Disease, JASN 2020). The CKD-EPI equation should not be used for patients with unstable renal function and has not been validated in children and those over 70. Current interpretive data was last reviewed 2021. Blood 08/04/2024 4:48 AM CDT 08/04/2024 5:02 AM CDT Anastasia Amaro MD LAB BLOOD ORDERABLES Final Result Performing Organization Address City/[facility] Co de Phone Number [facility] [place] [address] * Beta 2 glycoprotein IgM Ab (08/04/2024 4:48 AM CDT) [facility] Beta-2 glycoprotein I, IgM 0.6 <=19.9 units/mL Comment: Interpretive Data Negative: <20 U/mL Positive: > or = 20 U/mL ? Beta- 2 glycoprotein 1 (Beta-2 GP1) antibodies are a more specific marker of thrombotic risk. It is expected that some samples will be ACL positive and Beta- 2 GP1 negative. In order to improve specificity, the International Congress on Antiphospholipid Antibodies recommends Beta-2 GP1 antibodies of IgG or IgM isotype ??(> the 99th percentile), obtained twice, at least 12 weeks apart, to support a diagnosis of antiphospholipid syndrome. The cutoff for this assay was developed from data based on the 99th percentile. The Beta-2 GP1 IgM test can produce false positive results due to cross-reactivity with Rheumatoid factor. ??These results were obtained with the [employer]yxt 2200 System. Beta-2 GP1 IgM values obtained with different manufacturers' assay methods may not be used interchangeably. Current interpretive data was last revised on 2017. Blood 08/04/2024 4:48 AM CDT 08/04/2024 5:02 AM CDT us Anastasia Amaro MD LAB BLOOD ORDERABLES Final Result [facility] Department [place] [address] * Beta 2 glycoprotein IgG Ab (08/04/2024 4:48 AM CDT) Beta-2 glycoprotein I, IgG <1.4 <=19.9 units/mL Comment: Interpretive Data Negative: <20 U/mL Positive: > or = 20 U/mL ? Beta-2 glycoprotein 1 (Beta-2 GP1) antibodies are a more specific marker of thrombotic risk. It is expected that some samples will be ACL positive and Beta- 2 [id number]. In order to improve specificity, the International Congress on Antiphospholipid Antibodies recommends Beta-2 GP1 antibodies of IgG or IgM isotype ??(> the 99th percentile), obtained twice, at least 12 weeks apart, to support a diagnosis of antiphospholipid syndrome. The cutoff for this assay was developed from data based on the 99th percentile. These results were obtained with the [employer]yxt 2200 System. Beta 2GP1 IgG values obtained with different manufacturers' assay methods may not be used interchangeably. Current interpretive data was last revised on 2017. Blood 08/04/2024 4:48 AM CDT 08/04/2024 5:02 AM CDT Anastasia Amaro MD LAB BLOOD ORDERABLES Final Result [facility] [place] [address] * Cardiolipin antibody, IgG and IgM (08/04/2024 4:48 AM CDT) Cardiolipin, IgG <1.6 <=19.9 GPL U/mL Comment: Interpretive Data Negative: <20 GPL U/mL Positive: > or = 20 GPL U/mL Anticardiolipin antibodies are associated with certain clinical events including unexplained arterial and venous thromboemboli, and unexplained morbidity. However, detection of low levels of anticardiolipin antibodies occurs in both healthy individuals and patients with co-morbidities not associated with the antiphospholipid antibody (APA) syndrome including inflammatory and infectious conditions. In order to improve specificity, the International Congress on Antiphospholipid Antibodies recommends ACL antibodies of IgG or IgM isotype present in medium or high titer (e.g. > 40 GPL, or >the 99th percentile), on two or more occasions, at least 12 weeks apart, to support a diagnosis of antiphospholipid syndrome. The cutoff for this assay was developed from data based on the 99th percentile. In addition, the International Congress on Antiphospholipid Antibodies does not recommend testing for IgA [place]. These results were obtained with the [employer] 2200 System. Cardiolipin IgG values obtained with different manufacturers' assay methods may not be used interchangeably. Current interpretive data was last revised on 2017. Cardiolipin, IgM 0.7 <=19.9 MPL U/mL [facility] Comment: Interpretive Data Negative: <20 MPL U/mL Positive: > or = 20 MPL U/mL Anticardiolipin antibodies are associated with certain clinical events including unexplained arterial and venous thromboemboli, and unexplained morbidity. However, detection of low levels of anticardiolipin antibodies occurs in both healthy individuals and patients with co-morbidities not associated with the antiphospholipid antibody (APA) syndrome including inflammatory and infectious conditions. In order to improve specificity, the International Congress on Antiphospholipid Antibodies recommends ACL antibodies of IgG or IgM isotype present in medium or high titer (e.g. > 40 MPL, or >the 99th percentile), on two or more occasions, at least 12 weeks apart, to support a diagnosis of antiphospholipid syndrome. The cutoff for this assay was developed from data based on the 99th percentile. ?? In addition, the International Congress on Antiphospholipid Antibodies does not recommend testing for IgA [place]. The ACL IgM test can produce false positive results due to cross- reactivity with Rheumatoid factor, dsDNA or certain infectious disease antibodies. ??These results were obtained with the [employer] 2200 System. Cardiolipin IgM values obtained with different manufacturers' assay methods may not be used interchangeably. Current interpretive data was last revised on 2017. Blood 08/04/2024 4:48 AM CDT 08/04/2024 5:02 AM CDT us Anastasia Amaro MD LAB BLOOD ORDERABLES Final Result [facility] [place] [address] * (ABNORMAL) CBC without differential (08/04/2024 4:48 AM CDT) Pathologist [facility] WBC 12.6(H) 3.8 - 9.9 K/cumm Hgb 12.4 11.9 - 15.5 g/dL [facility] Hct 36.5 35.6 - 45.5 % [facility] Plt 278 150 - 400 K/cumm [facility] MPV 10.2 9.1 - 12.3 fL [facility] RBC 4.17 3.90 - 5.20 M/cumm [facility] MCV 87.5 81.3 - 96.4 fL [facility] MCH 29.7 27.1 - 33.3 pg [facility] MCHC 34.0 32.3 - 35.7 g/dL [facility] RDW CV 14.1 11.1 - 14.9 % [facility] RDW SD 45.0 35.7 - 48.1 fL [facility] NRBC abs 0.00 0.00 - 0.01 K/cumm [facility] Blood 08/04/2024 4:48 AM CDT 08/04/2024 5:02 AM CDT Anastasia Amaro MD LAB BLOOD ORDERABLES Final Result [facility] [place] [address] * (ABNORMAL) Type and screen (08/04/2024 4:48 AM CDT) [facility] ABO Rh O Negative Abiodun, indirect Positive(A) [facility] Blood 08/04/2024 4:48 AM CDT 08/04/2024 4:59 AM CDT Narrative [facility] - 08/04/2024 6:12 AM CDT Has the patient had Daratumumab or Isatuximab in the past 6 months?->Unknown Anastasia Amaro MD LAB BLOOD BANK TEST ORDERA BLES Final Result [facility] [place] [address] * (ABNORMAL) Comprehensive metabolic panel (08/04/2024 4:48 AM CDT) Sodium 137 135 - 145 mmol/L Potassium, pl 3.8 3.3 - 4.9 mmol/L [facility] Chloride 104 97 - 110 mmol/L [facility] CO2 22 22 - 32 mmol/L [facility] Anion gap 11 2 - 15 mmol/L [facility] BUN 8 6 - 25 mg/dL [facility] Creatinine 0.44(L) 0.60 - 1.10 mg/dL [facility] Glucose 77 70 - 199 mg/dL [facility] Comment: Interpretive Data Fasting glucose >/= 126 mg/dl is diagnostic for diabetes. ?? Fasting is defined as no caloric intake for at least 8 hours. Fasting glucose between 100 mg/dl to 125 mg/dl is diagnostic of prediabetes. In a patient with classic symptoms of hyperglycemia or hyperglycemic crisis, a random glucose >/= 200 mg/dl is diagnostic for diabetes. In the absence of unequivocal hyperglycemia, results should be confirmed by repeat testing. The classification and Diagnosis of Diabetes Diabetes Care 2021; 46: S19-S40. Current interpretive data was last revised 2022. Calcium 9.2 8.5 - 10.3 mg/dL [facility] Bilirubin, total 0.3 0.1 - 1.2 mg/dL [facility] Protein, pl 6.6 6.5 - 8.5 g/dL [facility] Albumin 3.3(L) 3.5 - 5.0 g/dL [facility] Alk phos 82 40 - 130 Units/L [facility] ALT 23 7 - 45 Units/L [facility] AST 25 10 - 45 Units/L [facility] Blood 08/04/2024 4:48 AM CDT 08/04/2024 5:02 AM CDT Anastasia Amaro MD LAB BLOOD ORDERABLES Final Result [facility] [place] [address] * Echocardiogram (08/03/2024 4:07 PM CDT) Anatomical Region Laterality Modality Ultrasound 08/03/2024 1:22 PM CDT Narrative 08/03/2024 5:10 PM CDT ?[facility] ? Echo Report ?[address], [place] ??[address] ?[phone] ? Patient Name: DINORA BEE ? Study Type: Echo ? Patient : 1995 ? Exam Date: ??08/03/2024 ? Age: ?29Y ? Exam Time: ??1:22:00 PM ? Referring MD: SIM HUSAIN ? Height: ? 65in ? Weight: ? 284lb ? BSA: ?2.3 m2 ? Sex: FEMALE ? BP: ? 139/83 ? Sales Expert: May Quick ? Pat. Stat.: Inpatient ?Room: 6800 ? Account:[id number] ? Indications for Study:MONO-DI TWINS Procedures: COLORFLOW, DOPPLER COMPLETE, , COMPLETE SUMMARY: Initial echocardiogram (2D, color, Doppler) performed on a 27+2week twin B fetus JERONIMO (10/31/2024). Study quality is good. FETUS B (MATERNAL LEFT HIGH) The fetus is in the vertex position, on maternal left. Impression: Mildly dilated AsAo, otherwise grossly normal cardiac structure and function Balanced four chamber view with qualitatively normal systolic function. There is levocardia noted. Normally related great vessels. Dilated AsAo (0.75cm, Z score +3.6) No inflow or outflow tract obstruction. No obvious VSD. No valvar regurgitation. Unobstructed aortic and ductal arches. Left aortic arch. At least 2 pulmonary veins drain normally to the LA. Normal systemic venous return. Normal heart rate, 132-141 bpm with 1:1 AV conduction. No pericardial effusion. Three vessel cord noted, with normal Doppler pattern. Normal ductus venosus Doppler. Atria: Situs: Solitus. RA Size: Normal. ??LA Size: Normal. Septum: PFO. Defect sz. Moderate ??Shunt: [id number] ?? Annular Dimensions: ??Ao Valve: 0.52 cm (+0.79) ?? Ventricles: D-looped ??LV size: Normal. LV function:Normal. Rv size: Normal. ??RV function: Normal. IVS: Motion: ??Normal. ??Defect Type/Size: None./None. ??Shunt: None. Grt Vessls: Normal. Aortic Root: Normal. MPA: Normal LPA: Normal. RPA: Normal. ?? Aortic Arch: Unobstructed Ductus Arteriosus: ?88 cm/sec Systm Veins: SVC: Normal. IVC: Normal. Pulm Veins: Visualized: 2/4. Connections: Normal. Pericardium: ??Normal Mitral Valve: Biphasic Structure: Normal. Stenosis: No. Regurgitation: No. Tricuspid Valve: Biphasic Structure: Normal. Stenosis:No. Regurgitation: No. Pulmonary Valve: Flow velocity ?? 66 cm/sec ??Structure: Normal. Stenosis: No. Regurgitation: No. Aortic Valve: Flow velocity 103 cm/sec ??Structure: Normal. Stenosis: No. Regurgitation: No. Pulsatility index: Ductal Arch: ?? 2.72 Umb Artery: ??0.74 cardiac rhythm: 1:1 AV conduction Rate: ?? 132-141 ??bpm FINDINGS: Signed 08/03/2024 05:10 PM Macie Vickers MD Procedure Note Macie Vickers MD - 08/03/2024 [facility] Echo Report [address] [address] Patient Name: DINORA BEE Study Type: Echo Patient : 1995 Exam Date: 08/03/2024 Age: 29Y Exam Time: 1:22:00 PM Referring MD: SIM HUSAIN Height: 65in Weight: 284lb BSA: 2.3 m2 Sex: FEMALE BP: 139/83 Sales Expert: May Quick Pat. Stat.: Inpatient Room: [facility] Account:[id number] Indications for Study:MONO-DI TWINS Procedures: COLORFLOW, DOPPLER COMPLETE, , COMPLETE SUMMARY: Initial echocardiogram (2D, color, Doppler) performed on a 27+2week twin B fetus JERONIMO (10/31/2024). Study quality is good. FETUS B (MATERNAL LEFT HIGH) The fetus is in the vertex position, on maternal left. Impression: Mildly dilated AsAo, otherwise grossly normal cardiac structure and function Balanced four chamber view with qualitatively normal systolic function. There is levocardia noted. Normally related great vessels. Dilated AsAo (0.75cm, Z score +3.6) No inflow or outflow tract obstruction. No obvious VSD. No valvar regurgitation. Unobstructed aortic and ductal arches. Left aortic arch. At least 2 pulmonary veins drain normally to the LA. Normal systemic venous return. Normal heart rate, 132-141 bpm with 1:1 AV conduction. No pericardial effusion. Three vessel cord noted, with normal Doppler pattern. Normal ductus venosus Doppler. Atria: Situs: Solitus. RA Size: Normal. LA Size: Normal. Septum: PFO. Defect sz. Moderate Shunt: [id number] Annular Dimensions: Ao Valve: 0.52 cm (+0.79) Ventricles: D-looped LV size: Normal. LV function:Normal. Rv size: Normal. RV function: Normal. IVS: Motion: Normal. Defect Type/Size: None./None. Shunt: None. Grt Vessls: Normal. Aortic Root: Normal. MPA: Normal LPA: Normal. RPA: Normal. Aortic Arch: Unobstructed Ductus Arteriosus: 88 cm/sec Systm Veins: SVC: Normal. IVC: Normal. Pulm Veins: Visualized: 2/4. Connections: Normal. Pericardium: Normal Mitral Valve: Biphasic Structure: Normal. Stenosis: No. Regurgitation: No. Tricuspid Valve: Biphasic Structure: Normal. Stenosis:No. Regurgitation: No. Pulmonary Valve: Flow velocity 66 cm/sec Structure: Normal. Stenosis: No. Regurgitation: No. Aortic Valve: Flow velocity 103 cm/sec Structure: Normal. Stenosis: No. Regurgitation: No. Pulsatility index: Ductal Arch: 2.72 Umb Artery: 0.74 cardiac rhythm: 1:1 AV conduction Rate: 132-141 bpm FINDINGS: Signed 08/03/2024 05:10 PM Macie Vickers MD Anastasia Amaro MD CV ECHO PROCEDURES Final R esult * Echocardiogram (08/03/2024 4:06 PM CDT) Anatomical Region Laterality Modality Ultrasound 08/03/2024 11:3 8 AM CDT Narrative 08/03/2024 4:30 PM CDT ?[facility] ? Echo Report ?[address] [facility], [place], [place] ??[address] ?[phone] ? Patient Name: DINORA BEE ? Study Type: Echo ? Patient : 1995 ? Exam Date: ??08/03/2024 ? Age: ?29Y ? Exam Time: ??11:38:00 AM ? Referring MD: SIM HUSAIN ? Height: ? 65in ? Weight: ? 284lb ? BSA: ?2.3 m2 ? Sex: FEMALE ? BP: ? 139/83 ? Sales Expert: May Quick ? Pat. Stat.: Inpatient ?Room: 6800 ? Account:[id number] ? Indications for Study:AORTIC ECTASIA. 747.29, MONO-DI TWINS Procedures: COLORFLOW, DOPPLER COMPLETE, , COMPLETE SUMMARY: Initial echocardiogram (2D, color, Doppler) performed on a 27+2week twin A fetus JERONIMO (11/01/2024). Study quality is good. FETUS A (MATERNAL LOW RIGHT) The fetus is in the vertex position, on maternal right. Impression: Grossly normal cardiac structure and function Balanced four chamber view with qualitatively normal systolic function. There is levocardia noted. Normally related great vessels. No inflow or outflow tract obstruction. No obvious VSD. No valvar regurgitation. Unobstructed aortic and ductal arches. Left aortic arch. At least 2 pulmonary veins drain normally to the LA. Normal systemic venous return. Normal heart rate, 138-146 bpm with 1:1 AV conduction. No pericardial effusion. Three vessel cord noted, with normal Doppler pattern. Normal ductus venosus Doppler. Atria: Situs: Solitus. RA Size: Normal. ??LA Size: Normal. Septum: PFO. Defect sz. Moderate ??Shunt: [id number]-gm-Roln ?? Ventricles: D-looped ??LV size: Normal. LV function:Normal. Rv size: Normal. ??RV function: Normal. IVS: Motion: ??Normal. ??Defect Type/Size: None./None. ??Shunt: None. Grt Vessls: Normal. Aortic Root: Normal. MPA: Normal LPA: Normal. RPA: Normal. ?? Aortic Arch: Unobstructed Ductus Arteriosus: ? 72 ??cm/sec Systm Veins: SVC: Normal. IVC: Normal. Pulm Veins: Visualized: 2/4. Connections: Normal. Pericardium: ??Normal Mitral Valve: Biphasic Structure: Normal. Stenosis: No. Regurgitation: No. Tricuspid Valve: Biphasic Structure: Normal. Stenosis:No. Regurgitation: No. Pulmonary Valve: Flow velocity 58 cm/sec ??Structure: Normal. Stenosis: No. Regurgitation: No. Aortic Valve: Flow velocity 58 cm/sec ??Structure: Normal. Stenosis: No. Regurgitation: No. Pulsatility index: Ductal Arch: ?? 2.01 Umb Artery: ?? 1.00 cardiac rhythm: 1:1 AV conduction Rate: ?? 138-146 ??bpm FINDINGS: Signed 08/03/2024 04:30 PM Maice Vickers MD Procedure Note Macie Vickers MD - 08/03/2024 [facility] Echo Report [address] [address] Patient Name: DINORA BEE Study Type: Echo Patient : 1995 Exam Date: 08/03/2024 Age: 29Y Exam Time: 11:38:00 AM Referring MD: SIM HUSAIN Height: 65in Weight: 284lb BSA: 2.3 m2 Sex: FEMALE BP: 139/83 Sales Expert: May Webber Stat.: Inpatient Room: 6800 Account:[id number] Indications for Study:AORTIC ECTASIA. 747.29, MONO-DI TWINS Procedures: COLORFLOW, DOPPLER COMPLETE, , COMPLETE SUMMARY: Initial echocardiogram (2D, color, Doppler) performed on a 27+2week twin A fetus JERONIMO (11/01/2024). Study quality is good. FETUS A (MATERNAL LOW RIGHT) The fetus is in the vertex position, on maternal right. Impression: Grossly normal cardiac structure and function Balanced four chamber view with qualitatively normal systolic function. There is levocardia noted. Normally related great vessels. No inflow or outflow tract obstruction. No obvious VSD. No valvar regurgitation. Unobstructed aortic and ductal arches. Left aortic arch. At least 2 pulmonary veins drain normally to the LA. Normal systemic venous return. Normal heart rate, 138-146 bpm with 1:1 AV conduction. No pericardial effusion. Three vessel cord noted, with normal Doppler pattern. Normal ductus venosus Doppler. Atria: Situs: Solitus. RA Size: Normal. LA Size: Normal. Septum: PFO. Defect sz. Moderate Shunt: Dplky-ps-Bubw Ventricles: D-looped LV size: Normal. LV function:Normal. Rv size: Normal. RV function: Normal. IVS: Motion: Normal. Defect Type/Size: None./None. Shunt: None. Grt Vessls: Normal. Aortic Root: Normal. MPA: Normal LPA: Normal. RPA: Normal. Aortic Arch: Unobstructed Ductus Arteriosus: 72 cm/sec Systm Veins: SVC: Normal. IVC: Normal. Pulm Veins: Visualized: 2/4. Connections: Normal. Pericardium: Normal Mitral Valve: Biphasic Structure: Normal. Stenosis: No. Regurgitation: No. Tricuspid Valve: Biphasic Structure: Normal. Stenosis:No. Regurgitation: No. Pulmonary Valve: Flow velocity 58 cm/sec Structure: Normal. Stenosis: No. Regurgitation: No. Aortic Valve: Flow velocity 58 cm/sec Structure: Normal. Stenosis: No. Regurgitation: No. Pulsatility index: Ductal Arch: 2.01 Umb Artery: 1.00 cardiac rhythm: 1:1 AV conduction Rate: 138-146 bpm FINDINGS: Signed 08/03/2024 04:30 PM Macie Vickers MD Anastasia Amaro MD CV ECHO PROCEDURES Final R esult * US Ob Limited (08/02/2024 11:48 AM CDT) Fetus# Fetus1 VIEWPOINT Estimated Weight 912 g&grams VIEWPOINT Placenta Details anterior VIEWPOINT Presentation Vertex; Maternal right- low VIEWPOINT Fetus# Fetus2 VIEWPOINT Estimated Weight 1,148 g&grams VIEWPOINT Placenta Details anterior VIEWPOINT Presentation Vertex; Maternal left- high VIEWPOINT Anatomical Region Laterality Modality Abdomen N/A Ultrasound 08/02/2024 11:5 1 AM CDT Impressions 08/02/2024 2:48 PM CDT Diamniotic (presumed MCDA) TIUP at 27w1d who is admitted for preE with severe features who presents for growth assessment and TTTS screen. Chorionicity was not fully assessed but was previously determined to be monochorionic by the [facility] practice. Anatomic surveys were also completed there. A thin dividing membrane is seen which would be consistent with this diagnosis.Twin 1 (right/low):1. Vertex presentation. 2. biometry is consistent with previously established dating. The EFW is at the 12%ile. The AC is at the 33%ile. 3. The bladder and DVP are normal. 4. The UA, MCA, and DV Dopplers are normal. 5. The aortic root does appear slightly dilated which may suggest aortic stenosis. echo is recommended. Twin 2 (left/high):1. Vertex presentation. 2. biometry is consistent with previously established dating. The EFW is at the 69%ile. The intertwin discordance is 20.5%3. The bladder and DVP are normal. 4. The UA, MCA, and DV Dopplers are normal. 5. The bilateral lateral ventricles are mildly increased in size. A full neuroanatomy assessment was not done due to time constraints. This is recommended. 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 Anatomic surveys were alsocompleted there. 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 Vertex presentation.2. biometry is consistent with previously established dating. TheEFW is at the 12%ile. The AC is at the 33%ile. 3. The bladder and DVP arenormal. 4. The UA, MCA, and DV Dopplers are normal. 5. The aortic rootdoes appear slightly dilated which may suggest aortic stenosis. echo is recommended. Twin 2 (left/high):1. Vertex presentation. 2. biometry is consistent with previously established dating. The EFWis at the 69%ile. The intertwin discordance is 20.5%3. The bladder and DVPare normal. 4. The UA, MCA, and DV Dopplers are normal. 5. The bilateral lateral ventricles are mildly increased in size. A full neuroanatomyassessment was not done due to time constraints. This is recommended. us Anastasia Amaro MD IMG OB US PROCEDURES Final Result * Group B streptococcal culture Vaginal/Rectal (08/01/2024 4:09 PM CDT) Report Final Report: Negative Vaginal/Rectal 08/01/2024 4: 09 PM CDT 08/01/2024 4:24 PM CDT [facility] - 08/04/2024 11:19 AM CDT Testing performed by [facility] ([phone]). us Millicent Duran [employer] LAB MICROBIOLOGY - GENERAL ORDERABLES Final Result [facility] Department [place] [address] * eGFR (08/01/2024 4:33 AM CDT) eGFR >90 >=60 mL/min/1. 73 m2 Comment: Interpretive Data Reference Interval Normal ?>/= 90 mL/min/1.73m2 Mildly decreased* ? 60 - 89 mL/min/1.73m2 Mildly to moderately decreased ?45 - 59 mL/min/1.73m2 Moderately to severely decreased ??30 - 44 mL/min/1.73m2 Severely decreased ?15 - 29 mL/min/1.73m2 Kidney Failure ?< 15 ??mL/min/1.73m2 *Relative to young adult level Estimated glomerular filtration rate is determined by the 2020 CKD-EPI equation recommended by the National Kidney Foundation (A Unifying Approach to GFR Estimation: Recommendations of the NKF-ASK Task Force on Reassessing the Inclusion of Race in Diagnosing Kidney Disease, JASN 2020). The CKD-EPI equation should not be used for patients with unstable renal function and has not been validated in children and those over 70. Current interpretive data was last reviewed 2021. Blood 08/01/2024 4:33 AM CDT 08/01/2024 4:48 AM CDT us Anastasia Amaro MD LAB BLOOD ORDERABLES Final Result [facility] Department [place] [address] * (ABNORMAL) CBC without differential (08/01/2024 4:33 AM CDT) WBC 10.6(H) 3.8 - 9.9 K/cumm Hgb 11.7(L) 11.9 - 15.5 g/dL [facility] Hct 35.1(L) 35.6 - 45.5 % [facility] Plt 269 150 - 400 K/cumm [facility] MPV 9.9 9.1 - 12.3 fL [facility] RBC 3.96 3.90 - 5.20 M/cumm [facility] MCV 88.6 81.3 - 96.4 fL [facility] MCH 29.5 27.1 - 33.3 pg [facility] MCHC 33.3 32.3 - 35.7 g/dL [facility] RDW CV 14.3 11.1 - 14.9 % [facility] RDW SD 46.5 35.7 - 48.1 fL [facility] NRBC abs 0.00 0.00 - 0.01 K/cumm [facility] Blood 08/01/2024 4:33 AM CDT 08/01/2024 4:48 AM CDT Anastasia Amaro MD LAB BLOOD ORDERABLES Final Result Performing Organization Address City/[facility] Co de Phone Number [facility] [place] [address] * Type and screen (08/01/2024 4:33 AM CDT) Pathologist [facility] Abiodun, indirect Negative ABO Rh O Negative [facility] Blood 08/01/2024 4:33 AM CDT 08/01/2024 5:12 AM CDT Narrative [facility] - 08/01/2024 6:16 AM CDT Has the patient had Daratumumab or Isatuximab in the past 6 months?->Unknown Anastasia Amaro MD LAB BLOOD BANK TEST ORDERA BLES Final Result Performing Organization Address [facility] de Phone Number [facility] [place] [address] * (ABNORMAL) Comprehensive metabolic panel (08/01/2024 4:33 AM CDT) [facility] Sodium 140 135 - 145 mmol/L Potassium, pl 3.8 3.3 - 4.9 mmol/L [facility] Chloride 106 97 - 110 mmol/L [facility] CO2 23 22 - 32 mmol/L [facility] Anion gap 11 2 - 15 mmol/L [facility] BUN 7 6 - 25 mg/dL [facility] Creatinine 0.46(L) 0.60 - 1.10 mg/dL [facility] Glucose 75 70 - 199 mg/dL [facility] Comment: Interpretive Data Fasting glucose >/= 126 mg/dl is diagnostic for diabetes. ?? Fasting is defined as no caloric intake for at least 8 hours. Fasting glucose between 100 mg/dl to 125 mg/dl is diagnostic of prediabetes. In a patient with classic symptoms of hyperglycemia or hyperglycemic crisis, a random glucose >/= 200 mg/dl is diagnostic for diabetes. In the absence of unequivocal hyperglycemia, results should be confirmed by repeat testing. The classification and Diagnosis of Diabetes Diabetes Care 202; 46: S19-S40. Current interpretive data was last revised 2022. Calcium 9.2 8.5 - 10.3 mg/dL [facility] Bilirubin, total 0.2 0.1 - 1.2 mg/dL [facility] Protein, pl 6.1(L) 6.5 - 8.5 g/dL [facility] Albumin 3.1(L) 3.5 - 5.0 g/dL [facility] Alk phos 69 40 - 130 Units/L [facility] ALT 30 7 - 45 Units/L [facility] AST 28 10 - 45 Units/L [facility] Blood 08/01/2024 4:33 AM CDT 08/01/2024 4:48 AM CDT us Anastasia Amaro MD LAB BLOOD ORDERABLES Final Result [facility] [place] [address] * (ABNORMAL) CBC without differential (07/31/2024 5:09 AM CDT) WBC 11.0(H) 3.8 - 9.9 K/cumm Hgb 10.8(L) 11.9 - 15.5 g/dL [facility] Hct 33.1(L) 35.6 - 45.5 % [facility] Plt 257 150 - 400 K/cumm [facility] MPV 10.3 9.1 - 12.3 fL [facility] RBC 3.71(L) 3.90 - 5.20 M/cumm [facility] MCV 89.2 81.3 - 96.4 fL [facility] MCH 29.1 27.1 - 33.3 pg [facility] MCHC 32.6 32.3 - 35.7 g/dL [facility] RDW CV 14.3 11.1 - 14.9 % [facility] RDW SD 46.8 35.7 - 48.1 fL [facility] NRBC abs 0.02(H) 0.00 - 0.01 K/cumm [facility] Blood 07/31/2024 5:09 AM CDT 07/31/2024 5:27 AM CDT Anastasia Amaro MD LAB BLOOD ORDERABLES Final Result Performing Organization Address [facility] [place] [address] * Magnesium (07/31/2024 5:07 AM CDT) Magnesium 1.9 1.4 - 2.5 mg/dL Blood 07/31/2024 5:07 AM CDT 07/31/2024 5:26 AM CDT Anastasia Amaro MD LAB BLOOD ORDERABLES Final Result Performing Organization Address [facility] de Phone Number [facility] [place] [address] * eGFR (07/30/2024 4:49 AM CDT) eGFR >90 >=60 mL/min/1. 73 m2 Comment: Interpretive Data Reference Interval Normal ?>/= 90 mL/min/1.73m2 Mildly decreased* ? 60 - 89 mL/min/1.73m2 Mildly to moderately decreased ?45 - 59 mL/min/1.73m2 Moderately to severely decreased ??30 - 44 mL/min/1.73m2 Severely decreased ?15 - 29 mL/min/1.73m2 Kidney Failure ?< 15 ??mL/min/1.73m2 *Relative to young adult level Estimated glomerular filtration rate is determined by the 2020 CKD-EPI equation recommended by the National Kidney Foundation (A Unifying Approach to GFR Estimation: Recommendations of the NKF-ASK Task Force on Reassessing the Inclusion of Race in Diagnosing Kidney Disease, JASN 2020). The CKD-EPI equation should not be used for patients with unstable renal function and has not been validated in children and those over 70. Current interpretive data was last reviewed 2021. Blood 07/30/2024 4:49 AM CDT 07/30/2024 5:02 AM CDT us Anastasia Amaro MD LAB BLOOD ORDERABLES Final Result [facility] [place] [address] * (ABNORMAL) CBC without differential (07/30/2024 4:49 AM CDT) WBC 10.2(H) 3.8 - 9.9 K/cumm Hgb 10.9(L) 11.9 - 15.5 g/dL [facility] Hct 32.5(L) 35.6 - 45.5 % [facility] Plt 262 150 - 400 K/cumm [facility] MPV 10.0 9.1 - 12.3 fL [facility] RBC 3.65(L) 3.90 - 5.20 M/cumm [facility] MCV 89.0 81.3 - 96.4 fL [facility] MCH 29.9 27.1 - 33.3 pg [facility] MCHC 33.5 32.3 - 35.7 g/dL [facility] RDW CV 14.4 11.1 - 14.9 % [facility] RDW SD 46.5 35.7 - 48.1 fL [facility] NRBC abs 0.00 0.00 - 0.01 K/cumm [facility] Blood 07/30/2024 4:49 AM CDT 07/30/2024 5:02 AM CDT us Anastasia Amaro MD LAB BLOOD ORDERABLES Final Result [facility] [place] [address] * Magnesium (07/30/2024 4:49 AM CDT) [facility] Magnesium 2.3 1.4 - 2.5 mg/dL Blood 07/30/2024 4:49 AM CDT 07/30/2024 5:02 AM CDT Anastasia Amaro MD LAB BLOOD ORDERABLES Final Result Performing Organization Address [facility] Co de Phone Number [facility] [place] [address] * (ABNORMAL) Comprehensive metabolic panel (07/30/2024 4:49 AM CDT) [facility] Sodium 140 135 - 145 mmol/L Potassium, pl 3.9 3.3 - 4.9 mmol/L [facility] Chloride 108 97 - 110 mmol/L [facility] CO2 22 22 - 32 mmol/L [facility] Anion gap 10 2 - 15 mmol/L [facility] BUN 5(L) 6 - 25 mg/dL [facility] Creatinine 0.46(L) 0.60 - 1.10 mg/dL [facility] Glucose 100 70 - 199 mg/dL [facility] Comment: Interpretive Data Fasting glucose >/= 126 mg/dl is diagnostic for diabetes. ?? Fasting is defined as no caloric intake for at least 8 hours. Fasting glucose between 100 mg/dl to 125 mg/dl is diagnostic of prediabetes. In a patient with classic symptoms of hyperglycemia or hyperglycemic crisis, a random glucose >/= 200 mg/dl is diagnostic for diabetes. In the absence of unequivocal hyperglycemia, results should be confirmed by repeat testing. The classification and Diagnosis of Diabetes Diabetes Care 202; 46: S19-S40. Current interpretive data was last revised 2022. Calcium 8.6 8.5 - 10.3 mg/dL [facility] Bilirubin, total 0.3 0.1 - 1.2 mg/dL [facility] Protein, pl 6.2(L) 6.5 - 8.5 g/dL [facility] Albumin 3.2(L) 3.5 - 5.0 g/dL [facility] Alk phos 70 40 - 130 Units/L [facility] ALT 22 7 - 45 Units/L [facility] AST 23 10 - 45 Units/L [facility] Blood 07/30/2024 4:49 AM CDT 07/30/2024 5:02 AM CDT Anastasia Amaro MD LAB BLOOD ORDERABLES Final Result Performing Organization Address [facility]/ZIP Co de Phone Number [facility] [employer] [place], [place] [id number] * Check Sample (07/29/2024 6:47 AM CDT) ABO Rh O Negative [facility] OTHER 07/29/2024 6:47 AM CDT 07/29/2024 7:10 AM CDT Anastasia Amaro MD LAB BLOOD ORDERABLES Final Result Performing Organization Address [facility] de Phone Number [facility] [place] [address] [facility] * eGFR (07/29/2024 5:43 AM CDT) eGFR >90 >=60 mL/min/1. 73 m2 Comment: Interpretive Data Reference Interval Normal ?>/= 90 mL/min/1.73m2 Mildly decreased* ? 60 - 89 mL/min/1.73m2 Mildly to moderately decreased ?45 - 59 mL/min/1.73m2 Moderately to severely decreased ??30 - 44 mL/min/1.73m2 Severely decreased ?15 - 29 mL/min/1.73m2 Kidney Failure ?< 15 ??mL/min/1.73m2 *Relative to young adult level Estimated glomerular filtration rate is determined by the 2020 CKD-EPI equation recommended by the National Kidney Foundation (A Unifying Approach to GFR Estimation: Recommendations of the NKF-ASK Task Force on Reassessing the Inclusion of Race in Diagnosing Kidney Disease, JASN 2020). The CKD-EPI equation should not be used for patients with unstable renal function and has not been validated in children and those over 70. Current interpretive data was last reviewed 2021. Blood 07/29/2024 5:43 AM CDT 07/29/2024 6:36 AM CDT Anastasia Amaro MD LAB BLOOD ORDERABLES Final Result Performing Organization Address [facility] Co de Phone Number [facility] [place] [address] * HIV 1/2 Antibody plus p24 Antigen Blood (07/29/2024 5:43 AM CDT) Pathologist [facility] HIV 1/2 ab + p24 ag Nonreactive Nonreactive Comment:Nonreactive for HIV- 1 antigen and HIV-1/HIV-2 antibodies. No laboratory evidence of HIV infection. If acute HIV infection is suspected, consider testing for HIV-1 RNA. Current interpretive data was last revised on 22. Blood 07/29/2024 5:43 AM CDT 07/29/2024 6:36 AM CDT us Anastasia Amaro MD LAB MICROBIOLOGY - GENERAL ORDERABLES Final Result Performing Organization Address City/[facility] Co de Phone Number [facility] [place] [address] * Protein / creatinine ratio, urine, random (07/29/2024 5:43 AM CDT) Protein, ur, quant 8.4 mg/dL Comment: Interpretive Data No reference range established. Current interpretive data was last revised 2019. Creatinine Ur 82.2 mg/dL [facility] Comment: Interpretive Data No reference range established. Current interpretive data was last revised 2019. Protein/creatinin e ratio 102.2 0.0 - 180.0 mg/g CR [facility] Urine 07/29/2024 5:43 AM CDT 07/29/2024 9:30 AM CDT Anastasia Amaro MD LAB URINE ORDERABLES Final Result Performing Organization Address City/[facility]/ZIP Co de Phone Number [facility] [place] [address] * RPR Blood (07/29/2024 5:43 AM CDT) [facility] RPR Nonreactive Nonreactive Blood 07/29/2024 5:43 AM CDT 07/29/2024 6:36 AM CDT Anastasia Amaro MD LAB MICROBIOLOGY - GENERAL ORDERABLES Final Result Performing Organization Address [facility] Co de Phone Number [facility] [place] [address] * (ABNORMAL) CBC without differential (07/29/2024 5:43 AM CDT) [facility] WBC 9.6 3.8 - 9.9 K/cumm Hgb 11.2(L) 11.9 - 15.5 g/dL [facility] Hct 33.5(L) 35.6 - 45.5 % [facility] Plt 291 150 - 400 K/cumm [facility] MPV 10.4 9.1 - 12.3 fL [facility] RBC 3.83(L) 3.90 - 5.20 M/cumm [facility] MCV 87.5 81.3 - 96.4 fL [facility] MCH 29.2 27.1 - 33.3 pg [facility] MCHC 33.4 32.3 - 35.7 g/dL [facility] RDW CV 14.2 11.1 - 14.9 % [facility] RDW SD 45.5 35.7 - 48.1 fL [facility] NRBC abs 0.00 0.00 - 0.01 K/cumm [facility] Blood 07/29/2024 5:43 AM CDT 07/29/2024 6:35 AM CDT Anastasia Amaro MD LAB BLOOD ORDERABLES Final Result Performing Organization Address City/[facility] Co de Phone Number [facility] Department [place] [address] * Type and screen (07/29/2024 5:43 AM CDT) Abiodun, indirect Negative ABO Rh O Negative [facility] Blood 07/29/2024 5:43 AM CDT 07/29/2024 6:37 AM CDT Narrative [facility] - 07/29/2024 7:26 AM CDT Has the patient had Daratumumab or Isatuximab in the past 6 months?->Unknown Anastasia Amaro MD LAB BLOOD BANK TEST ORDERA BLES Final Result Performing Organization Address [facility] Co de Phone Number [facility] Department [place] [address] * (ABNORMAL) Magnesium (07/29/2024 5:43 AM CDT) Magnesium 3.7(H) 1.4 - 2.5 mg/dL Blood 07/29/2024 5:43 AM CDT 07/29/2024 6:36 AM CDT Anastasia Amaro MD LAB BLOOD ORDERABLES Final Result Performing Organization Address City/[facility] Co de Phone Number [facility] [place] [address] * (ABNORMAL) Comprehensive metabolic panel (07/29/2024 5:43 AM CDT) Sodium 140 135 - 145 mmol/L Potassium, pl 3.4 3.3 - 4.9 mmol/L [facility] Chloride 103 97 - 110 mmol/L [facility] CO2 22 22 - 32 mmol/L [facility] Anion gap 15 2 - 15 mmol/L [facility] BUN 5(L) 6 - 25 mg/dL [facility] Creatinine 0.51(L) 0.60 - 1.10 mg/dL [facility] Glucose 92 70 - 199 mg/dL [facility] Comment: Interpretive Data Fasting glucose >/= 126 mg/dl is diagnostic for diabetes. ?? Fasting is defined as no caloric intake for at least 8 hours. Fasting glucose between 100 mg/dl to 125 mg/dl is diagnostic of prediabetes. In a patient with classic symptoms of hyperglycemia or hyperglycemic crisis, a random glucose >/= 200 mg/dl is diagnostic for diabetes. In the absence of unequivocal hyperglycemia, results should be confirmed by repeat testing. The classification and Diagnosis of Diabetes Diabetes Care 2021; 46: S19-S40. Current interpretive data was last revised 2022. Calcium 8.5 8.5 - 10.3 mg/dL [facility] Bilirubin, total 0.6 0.1 - 1.2 mg/dL [facility] Protein, pl 6.5 6.5 - 8.5 g/dL [facility] Albumin 3.7 3.5 - 5.0 g/dL [facility] Alk phos 74 40 - 130 Units/L [facility] ALT 20 7 - 45 Units/L [facility] AST 25 10 - 45 Units/L [facility] Blood 07/29/2024 5:43 AM CDT 07/29/2024 6:36 AM CDT us Anastasia Amaro MD LAB BLOOD ORDERABLES Final Result [facility] [place] [address] * eGFR (07/28/2024 10:30 PM CDT) eGFR >90 >=60 mL/min/1. 73 m2 Comment: Interpretive Data Reference Interval Normal ?>/= 90 mL/min/1.73m2 Mildly decreased* ? 60 - 89 mL/min/1.73m2 Mildly to moderately decreased ?45 - 59 mL/min/1.73m2 Moderately to severely decreased ??30 - 44 mL/min/1.73m2 Severely decreased ?15 - 29 mL/min/1.73m2 Kidney Failure ?< 15 ??mL/min/1.73m2 *Relative to young adult level Estimated glomerular filtration rate is determined by the 2020 CKD-EPI equation recommended by the National Kidney Foundation (A Unifying Approach to GFR Estimation: Recommendations of the NKF-ASK Task Force on Reassessing the Inclusion of Race in Diagnosing Kidney Disease, JASN 2020). The CKD-EPI equation should not be used for patients with unstable renal function and has not been validated in children and those over 70. Current interpretive data was last reviewed 2021. Blood 07/28/2024 10:3 0 PM CDT 07/28/2024 10:39 PM CDT us Kodak Sterling MD LAB BLOOD ORDERABLES F inal Result [facility] ([place]) 1 [facility] [place] [address] * (ABNORMAL) Urinalysis reflex to microscopic and culture Urine, clean voided (07/28/2024 10:30 PM CDT) Color, ur Yellow Yellow Clarity, ur Clear Clear [facility] ([place]) Specific gravity, ur 1.015 1.003 - 1.030 [facility] ([place]) pH, urine 6.5 [facility] ([place]) Comment: Interpretive Data ? Urine pH is affected by diet, medications, systemic acid-base disturbances, and renal tubular function. ??pH may affect urinary stone formation. ??For example, urine pH below 6.0 may help reduce the tendency for calcium phosphate stones and pH greater than 6.0 may reduce the tendency for uric acid stone formation. Source: [facility] Current Interpretive Data was last revised on 2017 Protein, ur ql Negative Negative [facility] ([place]) Glucose, ur ql Negative Negative [facility] ([place]) Ketones, ur 1+(A) Negative [facility] ([place]) Bilirubin, ur Negative Negative [facility] ([place] Blood, ur Negative Negative [facility] ([place]) Urobilinogen, ur <2.0 <2.0 mg/dL [facility] ([place]) Nitrite, ur Negative Negative [facility] ([place]) Leukocyte esterase, ur Negative Negative [facility] ([place]) UA reflex comment Reflex conditions for microscopic UA and culture not met. [facility] ([place]) Urine, clean voided 07/28/2024 10:30 PM CDT 07/28/2024 10:37 PM CDT us Kodak Sterling MD LAB MICROBIOLOGY - GEN ERAL ORDERABLES Final Result [facility] ([place]) 1 [facility] Department [place] [address] * Protein / creatinine ratio, urine, random (07/28/2024 10:30 PM CDT) Protein, ur, quant 13.9 mg/dL Comment: Interpretive Data No reference range established. Current interpretive data was last revised 2019. Creatinine Ur 113.7 mg/dL [facility] ([place]) Comment: Interpretive Data No reference range established. Current interpretive data was last revised 2019. Protein/creatinin e ratio 122.3 0.0 - 180.0 mg/g CR [facility] ([place]) Urine 07/28/2024 10:3 0 PM CDT 07/28/2024 10:37 PM CDT Kodak Sterling MD LAB URINE ORDERABLES F inal Result Performing Organization Address [facility] Co de Phone Number [facility] ([place]) 1 [facility] [place] [address] * (ABNORMAL) CBC without differential (07/28/2024 10:30 PM CDT) WBC 9.3 3.8 - 9.9 K/cumm Hgb 11.4(L) 11.9 - 15.5 g/dL [facility] ([place]) Hct 33.6(L) 35.6 - 45.5 % [facility] ([place]) Plt 278 150 - 400 K/cumm [facility] ([place]) MPV 10.0 9.1 - 12.3 fL [facility] ([place]) RBC 3.85(L) 3.90 - 5.20 M/cumm [facility] ([place]) MCV 87.3 81.3 - 96.4 fL [facility] ([place]) MCH 29.6 27.1 - 33.3 pg [facility] ([place]) MCHC 33.9 32.3 - 35.7 g/dL [facility] ([place]) RDW CV 13.8 11.1 - 14.9 % [facility] ([place]) RDW SD 44.0 35.7 - 48.1 fL [facility] ([place]) NRBC abs 0.00 0.00 - 0.01 K/cumm [facility] ([place]) Blood 07/28/2024 10:3 0 PM CDT 07/28/2024 10:36 PM CDT Kodak Sterling MD LAB BLOOD ORDERABLES F inal Result Performing Organization Address City/[facility]/ZIP Co de Phone Number [facility] ([place]) 1 [facility] [place] [address] * Uric acid (07/28/2024 10:30 PM CDT) Pathologist [facility] Uric acid 5.5 2.5 - 7.0 mg/dL Blood 07/28/2024 10:3 0 PM CDT 07/28/2024 10:36 PM CDT Kodak Sterling MD LAB BLOOD ORDERABLES F inal Result Performing Organization Address City/[facility]/ZIP Co de Phone Number [facility] ([place]) 1 [facility] [place] [address] * Lactate dehydrogenase (LD) (07/28/2024 10:30 PM CDT) [facility] Lactate dehydrogenase (LDH) 163 100 - 250 Units/L Blood 07/28/2024 10:3 0 PM CDT 07/28/2024 10:36 PM CDT Kodak Sterling MD LAB BLOOD ORDERABLES F inal Result Performing Organization Address City/[facility] de Phone Number [facility] ([place]) 1 [facility] [place] [address] * (ABNORMAL) Comprehensive metabolic panel (07/28/2024 10:30 PM CDT) Pathologist [facility] Sodium 135 135 - 145 mmol/L Potassium, pl 3.1(L) 3.3 - 4.9 mmol/L [facility] ([place]) Chloride 101 97 - 110 mmol/L [facility] ([place]) CO2 20(L) 22 - 32 mmol/L [facility] ([place]) Anion gap 14 2 - 15 mmol/L [facility] ([place]) BUN 5(L) 6 - 25 mg/dL [facility] ([place]) Creatinine 0.56(L) 0.60 - 1.10 mg/dL [facility] ([place]) Glucose 80 70 - 199 mg/dL [facility] ([place]) Comment: Interpretive Data Fasting glucose >/= 126 mg/dl is diagnostic for diabetes. ?? Fasting is defined as no caloric intake for at least 8 hours. Fasting glucose between 100 mg/dl to 125 mg/dl is diagnostic of prediabetes. In a patient with classic symptoms of hyperglycemia or hyperglycemic crisis, a random glucose >/= 200 mg/dl is diagnostic for diabetes. In the absence of unequivocal hyperglycemia, results should be confirmed by repeat testing. The classification and Diagnosis of Diabetes Diabetes Care 2021; 46: S19-S40. Current interpretive data was last revised 2022. Calcium 9.1 8.5 - 10.3 mg/dL [facility] ([place]) Bilirubin, total 0.6 0.1 - 1.2 mg/dL [facility] ([place]) Protein, pl 6.6 6.5 - 8.5 g/dL [facility] ([place]) Albumin 3.4(L) 3.5 - 5.0 g/dL [facility] ([place]) Alk phos 67 40 - 130 Units/L [facility] ([place]) ALT 19 7 - 45 Units/L [facility] ([place]) AST 21 10 - 45 Units/L [facility] ([place]) Blood 07/28/2024 10:3 0 PM CDT 07/28/2024 10:36 PM CDT us Kodak Sterling MD LAB BLOOD ORDERABLES F inal Result [facility] ([place] 1 [facility] [place] [address] * eGFR (07/27/2024 4:00 PM CDT) eGFR >90 >=60 mL/min/1. 73 m2 Comment: Interpretive Data Reference Interval Normal ?>/= 90 mL/min/1.73m2 Mildly decreased* ? 60 - 89 mL/min/1.73m2 Mildly to moderately decreased ?45 - 59 mL/min/1.73m2 Moderately to severely decreased ??30 - 44 mL/min/1.73m2 Severely decreased ?15 - 29 mL/min/1.73m2 Kidney Failure ?< 15 ??mL/min/1.73m2 *Relative to young adult level Estimated glomerular filtration rate is determined by the 2020 CKD-EPI equation recommended by the National Kidney Foundation (A Unifying Approach to GFR Estimation: Recommendations of the NKF-ASK Task Force on Reassessing the Inclusion of Race in Diagnosing Kidney Disease, JASN 2020). The CKD-EPI equation should not be used for patients with unstable renal function and has not been validated in children and those over 70. Current interpretive data was last reviewed 2021. Blood 07/27/2024 4:00 PM CDT 07/27/2024 4:45 PM CDT us Byron Tellez MD LAB BLOOD ORDERABLES Final Re sult [facility] [address] Department [place] [address] * Differential, auto (07/27/2024 4:00 PM CDT) Neutrophil abs 5.9 1.5 - 6.5 K/cumm Imm gran abs 0.1 0.0 - 0.1 K/cumm [facility] Lymphocyte abs 2.0 0.8 - 3.3 K/cumm [facility] Monocyte abs 0.8 0.2 - 0.8 K/cumm [facility] Eosinophil abs 0.1 0.0 - 0.5 K/cumm [facility] Basophil abs 0.0 0.0 - 0.1 K/cumm [facility] Neutrophil pct 66.7 % [facility] Comment: Interpretive Data Percent cell count reference ranges are not reported, since discordance with absolute values may lead to misinterpretation of CBC data. Current Interpretive Data was last revised on 2018. Imm gran pct 0.8 % [facility] Comment: Interpretive Data Percent cell count reference ranges are not reported, since discordance with absolute values may lead to misinterpretation of CBC data. Current Interpretive Data was last revised on 2018. Lymphocyte pct 22.5 % [facility] Comment: Interpretive Data Percent cell count reference ranges are not reported, since discordance with absolute values may lead to misinterpretation of CBC data. Current Interpretive Data was last revised on 2018. Monocyte pct 8.4 % [facility] Comment: Interpretive Data Percent cell count reference ranges are not reported, since discordance with absolute values may lead to misinterpretation of CBC data. Current Interpretive Data was last revised on 2018. Eosinophil pct 1.4 % [facility] Comment: Interpretive Data Percent cell count reference ranges are not reported, since discordance with absolute values may lead to misinterpretation of CBC data. Current Interpretive Data was last revised on 2018. Basophil pct 0.2 % [facility] Comment: Interpretive Data Percent cell count reference ranges are not reported, since discordance with absolute values may lead to misinterpretation of CBC data. Current Interpretive Data was last revised on 2018. Blood 07/27/2024 4:00 PM CDT 07/27/2024 4:39 PM CDT us Byron Tellez MD LAB BLOOD ORDERABLES Final Re sult [facility] [address] Department [place] [address] * CBC with auto differential (07/27/2024 4:00 PM CDT) WBC 8.9 3.8 - 9.9 K/cumm Hgb 13.0 11.9 - 15.5 g/dL [facility] Hct 37.9 35.6 - 45.5 % [facility] Plt 298 150 - 400 K/cumm [facility] MPV 10.0 9.1 - 12.[address] [facility] RBC 4.25 3.90 - 5.20 M/cumm [facility] MCV 89.2 81.3 - 96.[address] [facility] MCH 30.6 27.1 - 33.[address] [facility] MCHC 34.3 32.3 - 35.7 g/dL [facility] RDW CV 14.1 11.1 - 14.9 % [facility] RDW SD 46.0 35.7 - 48.[address] [facility] NRBC abs 0.00 0.00 - 0.01 K/cumm [facility] Blood 07/27/2024 4:00 PM CDT 07/27/2024 4:39 PM CDT Byron Tellez MD LAB BLOOD ORDERABLES Final Re sult Performing Organization Address [facility]/ZIP Co de Phone Number [facility] [address] [employer] [place], [place] [id number] * Protein / creatinine ratio, urine, random (07/27/2024 4:00 PM CDT) Protein, ur, quant 25.0 mg/dL Comment: Interpretive Data No reference range established. Current interpretive data was last revised 2019. Creatinine Ur 157.3 mg/dL [facility] Comment: Interpretive Data No reference range established. Current interpretive data was last revised 2019. Protein/creatinin e ratio 158.9 0.0 - 180.0 mg/g CR [facility] Urine 07/27/2024 4:00 PM CDT 07/27/2024 4:44 PM CDT Byron Tellez MD LAB URINE ORDERABLES Final Re sult [facility] [address] [place] [address] * Uric acid (07/27/2024 4:00 PM CDT) Uric acid 4.9 2.5 - 7.0 mg/dL Blood 07/27/2024 4:00 PM CDT 07/27/2024 4:45 PM CDT Byron Tellez MD LAB BLOOD ORDERABLES Final Re sult [facility] [address] Department [place] [address] * (ABNORMAL) Comprehensive metabolic panel (07/27/2024 4:00 PM CDT) Sodium 137 135 - 145 mmol/L Potassium, pl 3.5 3.3 - 4.9 mmol/L [facility] Chloride 104 97 - 110 mmol/L [facility] CO2 21(L) 22 - 32 mmol/L [facility] Anion gap 12 2 - 15 mmol/L [facility] BUN 5(L) 6 - 25 mg/dL [facility] Creatinine 0.53(L) 0.60 - 1.10 mg/dL [facility] Glucose 75 70 - 199 mg/dL [facility] Comment: Interpretive Data Fasting glucose >/= 126 mg/dl is diagnostic for diabetes. ?? Fasting is defined as no caloric intake for at least 8 hours. Fasting glucose between 100 mg/dl to 125 mg/dl is diagnostic of prediabetes. In a patient with classic symptoms of hyperglycemia or hyperglycemic crisis, a random glucose >/= 200 mg/dl is diagnostic for diabetes. In the absence of unequivocal hyperglycemia, results should be confirmed by repeat testing. The classification and Diagnosis of Diabetes Diabetes Care 2021; 46: S19-S40. Current interpretive data was last revised 2022. Calcium 9.4 8.5 - 10.3 mg/dL [facility] Bilirubin, total 0.4 0.1 - 1.2 mg/dL [facility] Protein, pl 7.1 6.5 - 8.5 g/dL [facility] Albumin 3.7 3.5 - 5.0 g/dL [facility] Alk phos 72 40 - 130 Units/L [facility] ALT 20 7 - 45 Units/L [facility] AST 21 10 - 45 Units/L [facility] Blood 07/27/2024 4:00 PM CDT 07/27/2024 4:45 PM CDT Byron Tellez MD LAB BLOOD ORDERABLES Final Re sult [facility] [address] Department [place] [address] * (ABNORMAL) POCT urinalysis dipstick (07/27/2024 3:19 PM CDT) Pathologist [facility] Glucose, ur, POC Negative Negative MG/DL Bilirubin, ur, POC Small Negative, Small, Moderate, Large Ketones, ur, POC 15.(A) Negative Specific [place], POC 1.020 1.003 - 1.030 Blood, ur, POC Trace(A) Negative pH, ur, POC 6.0 5.0 - 8.0 Protein, ur, POC 1+(A) Negative Urobilinogen, urine, POC 1.0 0.2 - 1.0 mg/dL Nitrite, ur, POC Negative Negative Leukocytes, ur, POC Large(A) Negative Lot Number [id number] Urine 07/27/2024 3:19 PM CDT Byron Tellez MD POINT OF CARE TEST ORDERABLES Final Result * US OB Follow up with US Transvaginal (C) (07/27/2024 1:44 PM CDT) Pathologist [facility] Fetus# [id number] [place] Estimated Weight 1,054 g&grams [place] Placenta Details anterior [place] Presentation Vertex maternal left [place] Fetus# Fetus2 [place] Estimated Weight 847 g&grams [place] Placenta Details anterior VIEWPOINT Presentation Vertex maternal right VIEWPOINT Anatomical Region Laterality Modality Abdomen N/A Ultrasound 07/27/2024 12:2 0 PM CDT Impressions 07/27/2024 4:07 PM CDT Mo Di Twin intrauterine at 26w 2d with positive cardiac activity x2.Intertwin growth is concordant with a difference of 19.7 %.Fetus A:AGA growth of fetus A is noted with EFW at 79%.Ascending/isthmus of aorta is mildly enlarged today on imaging. Aortic valve size measures within normal limits and peak systolic velocity measurements are within normal limits. Difficult to assess if aortic valve is bi or tri-leaflet. Left ventricular outflow tract is widely patent. Remainder of the aortic arch is within normal limits without overt signs of narrowing or coarctation. Fetus B:AGA growth of fetus B is noted with EFW at the 20%.The placenta is anterior, there are no placenta abnormalities identified.UA PIs are normal for GA.Bladders are present x 2.Amniotic fluid is normal x 2 and concordant.MCA PSVs are not indicative of TAPS today.There are no signs of TTTS or TAPS based on today's US findings.On TVUS CL measures 37 mm without funneling today. Narrative Procedure Note Marlen White MD - 07/27/2024 IMPRESSION: Mo Di Twin intrauterine at 26w 2d with positive cardiac activityx2.Intertwin growth is concordant with a difference of 19.7 %.Fetus A:AGAgrowth of fetus A is noted with EFW at 79%.Ascending/isthmus of aorta ismildly enlarged today on imaging. Aortic valve size measures within normallimits and peak systolic velocity measurements are within normal limits.Difficult to assess if aortic valve is bi or tri-leaflet. Left ventricularoutflow tract is widely patent. Remainder of the aortic arch is withinnormal limits without overt signs of narrowing or coarctation. Fetus B:AGAgrowth of fetus B is noted with EFW at the 20%.The placenta is anterior,there are no placenta abnormalities identified.UA PIs are normal forGA.Bladders are present x 2.Amniotic fluid is normal x 2 andconcordant.MCA PSVs are not indicative of TAPS today.There are no signs ofTTTS or TAPS based on today's US findings.On TVUS CL measures 37 mmwithout funneling today. us Dia Mantilla MD IMG OB US PROCEDURE S Final Result * US OB Heart with US Follow up (C) (07/13/2024 2:47 PM CDT) Fetus# Fetus1 VIEWPOINT Estimated Weight 876 g&grams VIEWPOINT Placenta Details anterior VIEWPOINT Presentation vertex left VIEWPOINT Fetus# Fetus2 VIEWPOINT Estimated Weight 649 g&grams VIEWPOINT Placenta Details anterior VIEWPOINT Presentation Transverse Lie - head maternal right VIEWPOINT Anatomical Region Laterality Modality Body N/A Ultrasound 07/13/2024 11:3 5 AM CDT Impressions 07/13/2024 3:17 PM CDT Mo Di Twin intrauterine at 24w 2d with positive cardiac activity x2. sizes are consistent with clinically established dates.Interval growths have been appropriate.Intertwin growth is concordant with a difference of 25.8 %.Fetus A:LGA growth of fetus A is noted with EFW at 97%.Aorta was suboptimally imaged and coarctation could not be ruled out today. On certain images obtained today, there may be dilation of ascending aorta which could be indicative of inaccurate measurements due to position vs downstream obstruction. Would recommend repeat imaging at upcoming ultrasounds. Discussed this with patient today as I was at bedside scanning in attempt to optimize imaging. Fetus B:AGA growth of fetus B is noted with EFW at the 28%.The placenta is anterior, there are no placenta abnormalities identified.UA PIs are normal for GA.Bladders are present x 2.Amniotic fluid is normal x 2 and concordant.MCA PSVs are not indicative of TAPS today.There are no signs of TTTS or TAPS based on today's US findings.On TVUS CL measures 27.4 mm - this was reported to Sonia Be [employer] as this is shorter than on prior imaging. Narrative Procedure Note Marlen White MD - 07/13/2024 IMPRESSION: Mo Di Twin intrauterine at 24w 2d with positive cardiac activityx2. sizes are consistent with clinically established dates.Intervalfetal growths have been appropriate.Intertwin growth is concordant with adifference of 25.8 %.Fetus A:LGA growth of fetus A is noted with EFW at97%.Aorta was suboptimally imaged and coarctation could not be ruled outtoday. On certain images obtained today, there may be dilation ofascending aorta which could be indicative of inaccurate measurements dueto position vs downstream obstruction. Would recommend repeatimaging at upcoming ultrasounds. Discussed this with patient today as Iwas at bedside scanning in attempt to optimize imaging. Fetus B:AGA growthof fetus B is noted with EFW at the 28%.The placenta is anterior, thereare no placenta abnormalities identified.UA PIs are normal for GA.Bladdersare present x 2.Amniotic fluid is normal x 2 and concordant.MCA PSVs arenot indicative of TAPS today.There are no signs of TTTS or TAPS based on today's US findings.On TVUS CL measures 27.4 mm - this wasreported to Sonia Be [employer] as this is shorter than on prior imaging. Dia Mantilla MD IMG OB US PROCEDURE S Final Result * (ABNORMAL) POCT urinalysis dipstick (07/13/2024 2:45 PM CDT) Glucose, ur, POC Negative Negative MG/DL Bilirubin, ur, POC Negative Negative, Small, Moderate, Large Ketones, ur, POC Negative Negative Specific [place], POC 1.025 1.003 - 1.030 Blood, ur, POC Negative Negative pH, ur, POC 6.0 5.0 - 8.0 Protein, ur, POC Negative Negative Urobilinogen, urine, POC 0.2 0.2 - 1.0 mg/dL Nitrite, ur, POC Negative Negative Leukocytes, ur, POC Moderate(A) Negative Lot Number [id number] Urine 07/13/2024 2:45 PM CDT Result [facility] Nancy Be NP POINT OF CARE TEST ORD ERABLES Final Result * (ABNORMAL) Vitamin D 25 hydroxy (07/12/2024 11:01 AM CDT) Vitamin D 25-OH 26(L) 30 - 80 ng/mL Blood 07/12/2024 11:0 1 AM CDT 07/12/2024 1:53 PM CDT Dia Mantilla MD LAB BLOOD ORDERABLE S Final Result [facility] Department [place] [address] * (ABNORMAL) POCT OB urine short dip (glucose, protein, ketones) (07/12/2024 10:31 AM CDT) Pathologist [facility] Glucose, ur, POC Negative Negative MG/DL Protein, ur, POC Trace(A) Negative Ketones, ur, POC Negative Negative Lot Number [id number] Urine 07/12/2024 10:3 1 AM CDT Result [facility] Dia Mantilla MD POINT OF CARE TEST ORDERABLES Final Result * US Ob Limited (07/12/2024 10:20 AM CDT) Pathologist [facility] Fetus# Fetus1 VIEWPOINT Placenta Details anterior VIEWPOINT Presentation Vertex VIEWPOINT Fetus# Fetus2 VIEWPOINT Placenta Details anterior VIEWPOINT Presentation Vertex VIEWPOINT Anatomical Region Laterality Modality Abdomen N/A Ultrasound 07/12/2024 10:2 8 AM CDT Impressions 07/12/2024 10:36 AM CDT 1. ?? There is a monochorionic diamniotic gestation. ??Both babies have documented cardiac activity.2. Normal amniotic fluid in both sacs. Narrative Procedure Note Dia Mantilla MD - 07/12/2024 IMPRESSION: 1. There is a monochorionic diamniotic gestation. Both babies havedocumented cardiac activity.2. Normal amniotic fluid in both sacs. Result [facility] Dia Mantilla MD IMG OB US PROCEDURE S Final Result * Hepatitis C antibody Blood (05/20/2024 2:47 PM CDT) Pathologist [facility] Hep C Ab Nonreactive Nonreactive Comment: Interpretive Data Nonreactive: Antibodies to HCV not detected. Does NOT exclude the possibility of recent exposure to HCV. Equivocal: Equivocal for HCV antibodies. Supplemental molecular testing will be automatically performed to determine infection status in accordance with current CDC screening recommendations. ?? Reactive: Positive for HCV antibodies. ??This may represent current or past HCV infection. Supplemental molecular testing will be automatically performed to determine ??current infection status in accordance with current CDC screening recommendations. Interpretive data was last revised on 2019. Blood 05/20/2024 2:47 PM CDT 05/20/2024 3:12 PM CDT us Dia Mantilla MD LAB MICROBIOLOGY - GENERAL [place] [id number] [address] [place] [address] from Last 3 Months or Most Recently Relevant to Health Maintenance Insurance [employer] [facility] [place]ANGE [place] [employer] [place] Advance Directives For more information, please contact: [phone] * Full Code (Latest Code Status on File) Date Activated Date Inactivated Comments 09/19/2024 4:34 PM 09/22/2024 3:32 PM * Full Code Date Activated Date Inactivated Comments 07/29/2024 3:05 AM 09/19/2024 4:34 PM Care Teams Pot Tender Relationship Specialty Start Date End Date No, Physician PCP - General 02/25/24
--- OUTSIDE RECORDS SUMMARY | 2024-10-06 03:39 | XMS_ITS | Clinical Summary ---
Author Organization [facility] Address [address] [place] [address] Care Team Providers Care Security Field Supervisor Name Role Phone No, Physician Primary Care Provider [phone] Allergies No known active allergies Medications no115/iron/fol [...] within 12 hours or as directed by . 10 patch 09/22/20 24 025 Active polyethylene glycol (MIRALAX) 17 gram/dose bulk powder Take 17 g by mouth daily as needed (constipation ) 289 g 09/22/20 24 Active oxyCODONE (ROXICODONE) 5 mg immediate release [...] iron. #Rh negative: s/p rhogam on 08/01. Infant Rh positive. Rhogam given 09/20. # CV/Pulm: Pre-eclampsia with severe features - s/p magnesium sulfate running at 2g/hr for a total of 24 hours . Blood pressures well controlled on N120XL and S338AIZ. CBC/CMP WNL, UPC 0.1. Enrolled in remote [...] # Disposition: Follow up task sent to [facility] scheduling pool for appointments in 2 and 6 weeks. They are enrolled in remote blood pressure monitoring for their BP check. Desires discharge home today. Service Coverage These phones are service phones and carried 27/04 in house: R1 (first call) [phone] R1 alt (second call) [phone] R4 (Chief) [phone] 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 08/29/2024 Preeclampsia, unspecified trimester 07/29/2024 Overview (09/19/2024): Suki Leon is a 29 y.o. female at 33w6d [...] Blood pressures well controlled on N120XL and [id number]. Magnesium for seizure prophylaxis. #sinus tachycardia, intermittent: [...] found out that that would be in [place] he used an expletive to express that they would not be doing that Resolved Problems Problem Noted Date Diagnosed Date Resolved Date Abdominal pain 07/06/2012 04/15/2024 Encounters Date Type Department Care Team Description 09/30/[address] [facility] [address] [place] [address] 09/25/[address] [facility] [address] [place] [address] 09/19/2024 1:57 PM GAS APPLIANCE REPAIRER Anesthesia Event [address] [address] Sidra Ann MD Bailey, Cody Allen, MD 09/19/2024 1:30 PM GAS APPLIANCE REPAIRER - 09/19/2024 4:05 PM GAS APPLIANCE REPAIRER Surgery [address] [address] Josefina Peter MD SECTION 09/15/2024 9:00 AM GAS APPLIANCE REPAIRER Ancillary Procedure [address] [address] 09/08/2024 10:00 AM GAS APPLIANCE REPAIRER Ancillary Procedure [address] [address] 08/24/2024 12:30 PM GAS APPLIANCE REPAIRER Ancillary Procedure [address] [address] 08/16/2024 8:15 AM GAS APPLIANCE REPAIRER Ancillary Procedure [address] [address] 08/09/2024 9:30 AM GAS APPLIANCE REPAIRER Ancillary Procedure [address] [address] 08/05/2024 Telephone [facility] [address] [place] [phone] Dia Mantilla MD 08/03/2024 11:34 AM CDT - 08/03/2024 11:59 PM CDT Hospital Encounter [facility] 2nd Floor [address] [place] [address] Discharge Disposition: Discharge to home or self care 08/03/2024 11:34 AM CDT - 08/03/2024 11:59 PM CDT Hospital Encounter [facility] 2nd Floor [address] [place] [address] Discharge Disposition: Discharge to home or self care 08/03/2024 Telephone [facility] [address] [place] [phone] Dia Mantilla MD admission 08/02/2024 9:15 AM CDT Ancillary Procedure [address] 5th [place] [address] 07/29/2024 3:15 PM CDT - 07/29/2024 11:59 PM CDT Hospital Encounter [facility] [phone] Discharge Disposition: Discharge to home or self care 07/29/2024 2:42 AM CDT - 09/22/2024 11:26 AM GAS APPLIANCE REPAIRER Hospital Encounter [address] [address] Anastasia Amaro MD Bligard, MD Sumanth Fitzgerald Julia Ellen, MD Goodman, Sara Olsen MD Preeclampsia, unspecified trimester (Primary Dx); Twin , unable to determine number of placenta and number of amniotic sacs, antepartum, unspecified trimester [O30.099]; 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 Discharge Disposition: Discharge to home or self care 07/28/2024 9:32 PM CDT - 07/29/2024 1:41 AM CDT Hospital Encounter [facility] [address] [place] [address] Dia Mantilla MD Discharge Disposition: Discharge to a critical access hospital 07/28/2024 Telephone [place] [facility] [employer] [facility] [address] [place] [phone] Dia Mantilla MD 07/27/2024 3:59 PM CDT - 07/27/2024 11:59 PM CDT Hospital Encounter [facility] [address] [place] [phone] Discharge Disposition: Discharge to home or self care 07/27/2024 2:30 PM CDT Office Visit [facility] at [address] [place] [phone] Byron Tellez MD Unspecified high-risk (Primary Dx) 07/27/2024 12:18 PM CDT - 07/27/2024 11:59 PM CDT Hospital Encounter [facility] Maternal Medicine Ultrasound-[address] [address] High risk , antepartum; Monochorionic diamniotic twin , antepartum Discharge Disposition: Discharge to home or self care 07/27/2024 Orders Only [facility] at [address] [place] [phone] Francine Duncan Twin , unable to determine number of placenta and number of amniotic sacs, antepartum, unspecified trimester (Primary Dx); BMI 40.0-44.9, adult (HCC); Maternal varicella, non-immune; Rh negative state in antepartum period; Long-term current use of antidepressant; Anxiety disorder, unspecified type 07/13/2024 2:30 PM CDT Office Visit [facility] at [address] [address] Nancy Be NP Unspecified high-risk (Primary Dx) 07/13/2024 11:25 AM CDT - 07/13/2024 11:59 PM CDT Hospital Encounter [facility] Maternal Medicine Ultrasound-[address] [phone] High risk , antepartum; Monochorionic diamniotic twin , antepartum Discharge Disposition: Discharge to home or self care 07/12/2024 10:55 AM CDT Lab [address] Encounter for supervision of normal first in first trimester 07/12/2024 10:30 AM CDT Routine [address] [place] [phone] Dia Mantilla MD Twin , unable to determine number of placenta and number of amniotic sacs, antepartum, unspecified trimester (Primary Dx); Encounter for supervision of normal first in first trimester; 24 weeks gestation of 07/12/2024 10:00 AM CDT Ancillary Procedure [address] [place] [phone] Ultrasound scan done for inability to hear heart tones 07/12/[address] [place] [phone] Dia Mantilla MD Test Results from Last 3 Months Immunizations Name Administration Dates Next Due Influenza, Trivalent, Preservative Free, Intramu scular 07/12/2024 RSV, Bivalent, Protein Subun it Rsvpref, Diluent (Abrysvo) 09/05/2024 Tdap 08/09/2024 Varicella 09/21/2024 Surgical History Surgery Date Site/Laterality Comments CHOLECYSTECTOMY Medical History Medical History Date Comments IBS (irritable bowel syndrome) Anxiety Obesity GERD (gastroesophageal reflux disease) Migraine headache Family History Medical History Relation Name Comments Anxiety disorder Brother Ulcers Father Diabetes type II Maternal Grandfather Deep vein thrombosis Maternal Grandmother Heart attack Maternal Grandmother Anxiety disorder Mother Breast cancer Mother was told it is not hereditary Hypertension Other 1 Hypertension - (Added by TW Conv) Heart disease Other 2 Reported Famil y History Of Heart Disease - (Added by TW Conv) Gallbladder disease Other 3 Reported Prior Gallbladder Disease - (Added by TW Conv) Diabetes Other 4 Diabetes Mellit us - (Added by TW Conv) Heart failure Paternal Grandfather Lung cancer Paternal Grandfather Hypertension Paternal Grandmother Cancer Neg Hx no colon or manager 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 Never 07/29/2024 Do you belong to any clubs o r organizations such as faith groups, unions, fraternal or athletic groups, or [...] staff should administer the PHQ-9) 0 07/28/2024 [facility] - Occupational Stress Questionnaire Answer Date Recorded [...] money to buy more. Never true 07/29/20 24 Within the past 12 months, t he [...] things needed for daily living? No 07/29/2024 [place] Depression Scale Answer Date Recorded [place] Depression Scale Total 8 07/12/2024 The thought [...] any time in the past 12 m [facility], were you homeless or living in a senior care (including now)? No 07/29/2024 Personal Safety Answer Date Recorded Have you ever been in or are you currently in a harmful physical or emotional relationship or is someone making you feel afraid or unsafe? Denies 07/29/2024 Comments No Sex and Gender Information Value Date Recorded Sex Assigned at Not on file Legal Sex Female 2:19 AM GAS APPLIANCE REPAIRER Gender Identity Not on file Sexual Orientation Not on file Obstetrics History Para Term AB IAB SAB Ectopic Multiple Livin g Live Births 1 1 1 1 2 2 Date Outcome GA Total Labor Labor/2nd/3rd Weight Sex Type Anes PTL Janet A1 A5 Name Clin 2023 34w 0d 0h 02m 0h 02m 2.53 kg (5 lb 9.2 oz) M C-Sec tion Combin ed Spinal /Epidu ral N Livin g 9 9 Masood Clayton MD Complications:None Delivery Location:[facility] Main C ampus ([facility] L AND D PROCEDURE) 2023 34w 0d 0h 03m 0h 03m 1.92 kg (4 lb 3.7 oz) M C-Sec tion Combin ed Spinal /Epidu ral N Livin g 8 9 Morales J Masood Lea MD Complications:None Delivery Location:[facility] Main C ampus ([facility] L AND D PROCEDURE) Summary Episode Dates Number of Fetuses Estimated Date of Delivery 03/28/2024 - Present (10/06/2024) 2 10/31/2024 (set by Nasim Navas MA on 03/28/2024 based on Ultrasound on 03/22/2024) Dating Summary Based On JERONIMO GA Diff Last Menstrual Period on 01/19/2024 (Approximate ) 10/25/2024 +6d Ultrasound on 03/22/2024 10/31/2024 Working GA:8w1d Ultrasound on 05/31/2024 10/31/2024 Same GA:18w1d Ultrasound on 06/29/2024 10/31/2024 Same GA:22w2d Ultrasound on 07/13/2024 10/31/2024 Same GA:24w2d Ultrasound on 07/27/2024 10/31/2024 Same GA:26w2d Overview and Plan :Twin Support person:Alberto Delivery Plans Post-Delivery Plans Planned delivery method:Vaginal Feeding intentions:Breast Milk Planned anesthesia:Epidural Acceptable blood products:All Overview ACP- Alberto Leon Vitals Pregravid Weight Height TWG (As of 10/06/2024) Pregrav id BMI 119.7 kg (264 lb) 165.1 cm (5' 5 ) 9.072 kg (20 lb) 43 .93 Date GA Fund Present FHR Mvmt BP Weight Edema Alb Glu Ket Dil/ Eff/Sta 4 26w4d Inpatient data not displayed here. See encounter summary. 4 34w0d Inpatient data not displayed here. See encounter summary. Notes Progress Notes - Hospital En counter - 09/22/2024 - GA:34w0d 09/22/2024 - 34w0d - Ana Gauthier NP Post Progress Note Admission Date: 07/29/2024 SUBJECTIVE Suki Leon is a 29 y.o. postop day 3 s/p Regino Leon [[id number]] Morales Leon [[id number]] . Pain: Controlled Bleeding: lochia minimal Oral Intake: taking regular diet Voiding: without difficulty Bowel function: flatus and bowel movement Ambulating: yes Mood: stable Feeding: No acute events overnight. Denies SHIPLEY, visual changes, chest pain, SOB, or RUQ pain. Denies lightheaded or dizziness. Patient reports feeling much better today and is excited for discharge. Denies concerns. OBJECTIVE Vitals: Temp Min: 36.4 ??C (97.5 ??F) Max: 36.6 ??C (97.9 ??F) Pulse Min: 77 Max: 108 BP Min: 129/73 Max: 138/84 Resp Min: 14 Max: 19 SpO2 Min: 96 % Max: 100 % Physical Exam General: No acute distress. Neurologic: Alert and oriented Lungs: Non-labored. Abdomen: Soft, non distended, appropriately tender to palpation. Fundus firm below umbilicus. Incision: incision well approximated with steristrips in place - c/d/i incisional care and s/s infection reviewed with patient. Extremities: Warm and well-perfused. trace bilateral lower extremity edema with no calf tenderness. Pelvic: Deferred. Lab Review: Lab Results Component Value Date WBC 10.3 (H) 09/20/2024 HGB 9.7 (L) 09/20/2024 HCT 28.4 (L) 09/20/2024 MCV 88.2 09/20/2024 LABPLAT 230 09/20/2024 Lab Results Component Value Date ABORH O Negative 09/20/2024 IDCOOMB Negative 09/18/2024 [id number] Nonreactive 08/13/2024 LABRPR Nonreactive 08/13/2024 RUBELIGG Reactive 05/20/2024 HEPBSAG Nonreactive 05/20/2024 VZVIGG Equivocal (A) 05/20/2024 Current Meds: Scheduled Medications enoxaparin, 40 mg, subcutaneous, Q12H ASHLEY ferrous sulfate, 65 mg of elemental iron, oral, Daily with breakfast fluticasone propionate, 1 spray, each nostril, Daily labetaloL, 300 mg, oral, TID lidocaine, 2 patch, transdermal, Q24H metroNIDAZOLE, 500 mg, oral, Q8H NIFEdipine, 120 mg, oral, Daily viatmin, 1 tablet, oral, Daily polyethylene glycol, 17 g, oral, Daily senna-docusate, 1 tablet, oral, BID sodium chloride 0.9%, 0.5-20 mL, intra-catheter, Q8H ASHLEY (ALT) PRN Medications acetaminophen calcium carbonate [COMPLETED] magnesium sulfate AND magnesium sulfate AND calcium gluconate AND Magnesium cyclobenzaprine ibuprofen vxalsvp-gelty-vlgjfxs ondansetron ODT OR ondansetron oxyCODONE simethicone sodium chloride 0.9% ASSESSMENT/PLAN Suki Leon is a 29 y.o. female postop day 3 s/p Regino Leon [[id number]] Morales Leon [[id number]] . Problem Care Following Delivery # ID: Afebrile. No signs/symptoms of infection. #VZV equivocal: varivax given 09/21. #SSppx: Keflex/Flagyl 500mg q8h for 48h. # Heme: QBL 800 mL. Hemodynamically stable. Pre-op Hb 11.6 > POD1 Hb 9.7. Start on PO iron. #Rh negative: s/p rhogam on 08/01. Infant Rh positive. Rhogam given 09/20. # CV/Pulm: Pre-eclampsia with severe features - s/p magnesium sulfate running at 2g/hr for a total of 24 hours . Blood pressures well controlled on N120XL and [id number]. CBC/CMP WNL, UPC 0.1. Enrolled in remote [...] # Disposition: Follow up task sent to [facility] scheduling pool for appointments in 2 and 6 weeks. They are enrolled in remote blood pressure monitoring for their BP check. Desires discharge home today. Service Coverage These phones are service phones and carried 27/04 in house: R1 (first call) [phone] R1 alt (second call) [phone] R4 (Chief) [phone] CATALINA Tena 09/22/24 Cosigned by Willie Kelly MD at 09/22/2024 4:18 PM GAS APPLIANCE REPAIRER APPLIANCE REPAIRER APPLIANCE REPAIRER 09/21/2024 - 34w0d - Marge Salguero RD Nutrition Screen Note Pt. Screened for nutritional assessment secondary to LOS Past Medical History: Diagnosis Date Anxiety GERD (gastroesophageal reflux disease) IBS (irritable bowel syndrome) Migraine headache Obesity Past Surgical History: Procedure Laterality Date CHOLECYSTECTOMY Anthropometrics Weight: 128.8 kg (284 lb) Admission Weight : 128.8 kg Weight Change: 0.00 kg (0.00 lbs) IBW/kg (Calculated) : 56.7 kg Height: 165.1 cm (5' 5 ) Weight in (lb) to have BMI = 25: 149.9 BMI (Calculated): 47.3 Adult Malnutrition Scoring Tool (MST) What diet do you follow at home?: regular Have You Recently Lost Weight Without Trying?: No Have you been eating poorly because of a decreased appetite?: Yes Malnutrition Screening Tool (MST) Score: 1 Dietary Orders (From admission, onward) Start Ordered 09/19/24 1635 Adult Diet Regular Diet effective now Question: ([facility]) Diet type Answer: Regular 09/19/24 1634 Assessment / Impression: Attempted to see patient for follow-up nutrition screen, but she was not in the room at time of visit. She is on a regular diet and previously reported good PO intake. Per progress notes she plans to breast feed. Left breast feeding nutrition therapy education at bedside. Marge Castro MS, RD, [facility], Cell APPLIANCE REPAIRER 09/21/2024 - 34w0tasneem - Millie Pierce LCSW Reason for Admission MOB (Suki Kraft Edward 1995) was admitted on 07/29/2024 for Preeclampsia, unspecified trimester [O14.90]. Social Work met with Suki Leon for check in. Medical History OB-ROLL CHANGER care has been established with [facility]. Pediatric follow-up to be scheduled throughout twins' admission to the [facility] NICU. Medical insurance coverage is through [employer] [place] [employer], [place]. Information Pt. delivered twin baby's with a of 09/19/24. Twins' EGA's are . Baby boy A's name is Regino and weighed 5lb 8.2oz at delivery. Baby boy B's name is Morales and weighed 4lb 3oz. Pt. delivered via . Babies were admitted to the [facility] NICU. Pt. plans to breast feed the twins and is currently pumping. These are the Pt.'s first children. Bryan admitted to [facility] NICU re: prematurity, RDS. Social History Current address is [address] [place] [phone], where she lives with her . Currently [phone] (home) is the best phone number for future contact. MOB reports that her and their families will be a positive support for her and her child. Father of the baby, Florentino Leon, can be reached at [phone]. FOB has been present and supportive at the hospital. Mood and Anxiety Maternal history of anxiety. SW and MOB discussed mental health and coping throughout inpatient [facility]U admission. MOB continues to report manageable mood and is adjusting as expected to twins' admssion to [facility] NICU. SW and MOB discussed the signs and symptoms of Mood and Anxiety Disorder and reviewed the differences between PMAD and Baby Blues. SW discussed and normalized increase in emotions and the importance of self-care. MOB engaged in conversation and demonstrates knowledge. MOB encouraged to seek medical and mental health treatment if PMAD symptoms arise. MOB confirms that she feels supported by: , family, and can reach out to her OBGYN for follow up support, if symptoms arise. SW informed MOB that PMAD/Baby Blues information and supportive phone numbers are provided in Welcome Folder. SW reviews [facility] NICU SW and [facility] support services available throughout 's ongoing admission. MOB engaged in conversation and demonstrates knowledge. Resources Provided and Goals Addressed Social Determinants of Health: No concerns with transportation reported. Local community resources discussed, including [facility], and no referrals requested at this time. MOB confirms having all needed baby items prepared for , including car seat, clothing, crib/bassinet, bottles, etc. Family eligible for local lodging referrals ([place], [place])- This clinician reviews [facility] resources, including waitlist and need for background checks to be completed prior to their entry. Family understanding and agreeable to referral- this clinician completes referral, as requested. [facility] SW provides support and encouragement. Family denies having any questions or concerns for this clinician. Strengths MOB is open and receptive to Social Work intervention, education, and resources. Safe Discharge Plan [facility] SW to collaborate with [facility] NICU SW (Sim Marino, ) for family care handoff, as needed. NICU SW will follow up with family throughout remainder of infant's admission to [facility]. No further [facility] SW needs indicated at this time. ARACELIS Tyler, HOPPER ATTENDANT [facility] Clinical Hospital [facility] APPLIANCE REPAIRER 09/21/2024 - 34w0tasneem - Ana Gauthier NP Post Progress Note Admission Date: 07/29/2024 SUBJECTIVE Suki Leon is a 29 y.o. postop day 2 s/p Tiffany Leon [[id number]] Nancy Leon [[id number]] . Pain: moderately Controlled Bleeding: lochia minimal Oral Intake: taking regular diet Voiding: without difficulty Bowel function: flatus and bowel movement Ambulating: yes Mood: stable Feeding: No acute events overnight. Denies SHIPLEY, visual changes, chest pain, SOB, or RUQ pain. Denies lightheaded or dizziness. Patient reports having a lot of cramping through the night. Denies other concerns. OBJECTIVE Vitals: Temp Min: 36.3 ??C (97.3 ??F) Max: 36.9 ??C (98.4 ??F) Pulse Min: 85 Max: 96 BP Min: 116/68 Max: 137/85 Resp Min: 16 Max: 20 SpO2 Min: 95 % Max: 99 % Physical Exam General: No acute distress. Neurologic: Alert and oriented Lungs: Non-labored. Abdomen: Soft, non distended, appropriately tender to palpation. Fundus firm below umbilicus. Incision: dressing removed, incision well approximated with steristrips in place - c/d/i incisional care and s/s infection reviewed with patient. Extremities: Warm and well-perfused. 1+ bilateral lower extremity edema with no calf tenderness. Declining GARFIELD hose at this time. Encouraged increased elevation. Pelvic: Deferred. Lab Review: Lab Results Component Value Date WBC 10.3 (H) 09/20/2024 HGB 9.7 (L) 09/20/2024 HCT 28.4 (L) 09/20/2024 MCV 88.2 09/20/2024 LABPLAT 230 09/20/2024 Lab Results Component Value Date ABORH O Negative 09/20/2024 IDCOOMB Negative 09/18/2024 [id number] Nonreactive 08/13/2024 LABRPR Nonreactive 08/13/2024 RUBELIGG Reactive 05/20/2024 HEPBSAG Nonreactive 05/20/2024 VZVIGG Equivocal (A) 05/20/2024 Current Meds: Scheduled Medications cephalexin, 500 mg, oral, Q8H enoxaparin, 40 mg, subcutaneous, Q12H ASHLEY ferrous sulfate, 65 mg of elemental iron, oral, Daily with breakfast fluticasone propionate, 1 spray, each nostril, Daily labetaloL, 300 mg, oral, TID lidocaine, 2 patch, transdermal, Q24H metroNIDAZOLE, 500 mg, oral, Q8H NIFEdipine, 120 mg, oral, Daily viatmin, 1 tablet, oral, Daily polyethylene glycol, 17 g, oral, Daily senna-docusate, 1 tablet, oral, BID sodium chloride 0.9%, 0.5-20 mL, intra-catheter, Q8H ASHLEY (ALT) PRN Medications acetaminophen calcium carbonate [COMPLETED] magnesium sulfate AND magnesium sulfate AND calcium gluconate AND Magnesium cyclobenzaprine ibuprofen zpmqebw-jcaij-deowdpu ondansetron ODT OR ondansetron oxyCODONE simethicone sodium chloride 0.9% varicella zoster ASSESSMENT/PLAN Suki Leon is a 29 y.o. female postop day 2 s/p Tiffany Leon [[id number]] Nancy Leon [[id number]] . Problem Care Following Delivery # ID: Afebrile. No signs/symptoms of infection. #VZV equivocal: Recommend varivax pp. #SSppx: Keflex/Flagyl 500mg q8h for 48h. # Heme: QBL 800 mL. Hemodynamically stable. Pre-op Hb 11.6 > POD1 Hb 9.7. Start on PO iron. #Rh negative: s/p rhogam on 08/01. Rh positive. Rhogam given 09/20. # CV/Pulm: Pre-eclampsia with severe features - s/p magnesium sulfate running at 2g/hr for a total of 24 hours . Blood pressures well controlled on N120XL and [id number]. CBC/CMP WNL, UPC 0.1. Enrolled in remote blood pressure monitoring. #Sinus tachycardia, intermittent: Likely secondary to reflex tachycardia from nifedipine. Thyroid studies normal. Elevated D-dimer with CTPE negative. EKG PRN. #Chronic headaches: Well controlled on magnesium and riboflavin. # GI/: Tolerating PO. Voiding spontaneously. # Pain: Moderately controlled with above regimen. Enrolled in PANDA: randomized to NSAIDs group. Flexeril and lidocaine patches added. #depression/anxiety: Stable on no meds. For SW pp. # MOC: s/p nexplanon placement [...] # Disposition: Follow up task sent to [facility] scheduling pool for appointments in 2 and 6 weeks. They are enrolled in remote blood pressure monitoring for their BP check. Continue routine postoperative care. Service Coverage These phones are service phones and carried 27/04 in house: R1 (first call) [phone] R1 alt (second call) [phone] R4 (Chief) [phone] CATALINA Tena 09/21/24 Cosigned by Angelica Amin MD at 09/21/2024 5:43 PM GAS APPLIANCE REPAIRER APPLIANCE REPAIRER APPLIANCE REPAIRER APPLIANCE REPAIRER Associated attestation - Angelica Amin MD - 09/21/2024 5:43 PM GAS APPLIANCE REPAIRER The nurse practitioner saw and examined the patient, we discussed their findings, and I am in agreement with the plan based on the discussion with the nurse practitioner. I did not personally examine the patient as she was out of her room at the time of rounding. Angelica Amin MD 09/20/2024 - 34w0d - Carola Espinal Chaplain Carola Murphy [facility] Spiritual Care Triage: [phone] 09/20/24 1300 Time Spent Start Time 1300 Stop Time 1315 Time Calculation (min) 15 min Clinical Encounter Type Visited With Patient Response Type Routine visit;Continuing visit Routine Visit Follow-up Reason for visit Support Outcomes and Progress Demonstrating care and respect Achieved Establish rapport and connectedness Achieved Interventions Interventions Offer emotional support APPLIANCE REPAIRER 09/20/2024 - 34w0d - Marielle Shanks DO Post Progress Note Delivery Date/Time: 09/19/2024t 2:59 PM Delivery method: Tiffany Leon [[id number]] [351] Nancy Leon [[id number]] [351] Subjective Suki Leon is a 29 y.o. POD#1 from [facility]. Doing well this morning, does not like how the magnesium makes her feel. Flatus: No Pain: Well controlled Diet: Tolerating regular diet. Not yet ambulating. Rainey still in place Lochia greater than menses Scheduled Medications acetaminophen, 1,000 mg, oral, Q6H ASHLEY cephalexin, 500 mg, oral, Q8H enoxaparin, 40 mg, subcutaneous, Q12H ASHLEY etonogestreL, 68 mg, subdermal, Once And lidocaine (PF), 5 mL, subcutaneous, Once ferrous sulfate, 65 mg of elemental iron, oral, Daily with breakfast fluticasone propionate, 1 spray, each nostril, Daily labetaloL, 300 mg, oral, TID metroNIDAZOLE, 500 mg, oral, Q8H NIFEdipine, 120 mg, oral, Daily viatmin, 1 tablet, oral, Daily polyethylene glycol, 17 g, oral, Daily Rho(D) immune globulin, 300 mcg, intramuscular, Once senna-docusate, 1 tablet, oral, BID sodium chloride 0.9%, 0.5-20 mL, intra-catheter, Q8H ASHLEY (ALT) PRN Medications acetaminophen calcium carbonate [COMPLETED] magnesium sulfate AND magnesium sulfate AND calcium gluconate AND Magnesium HYDROmorphone ibuprofen cycdrxw-ixmbi-ygehatr naloxone ondansetron ondansetron ODT OR ondansetron oxyCODONE oxyCODONE sodium chloride 0.9% varicella zoster Vitals: Temp: [36.3 ??C (97.4 ??F)-36.9 ??C (98.4 ??F)] 36.9 ??C (98.4 ??F) Pulse: [67-107] 89 BP: (102-145)/(56-95) 131/70 Resp: [18-20] 18 SpO2: [95 %-100 %] 98 % Intake/Output Summary (Last 24 hours) at 09/20/2024 0732 Last data filed at 09/20/2024 0625 Gross per 24 hour Intake 2829.88 ml Output 3013 ml Net -183.12 ml Physical Exam General: No acute distress. Cardiovascular: Regular rate Lungs: Non-labored. Abdomen: Soft, mildly distended, appropriately tender to palpation. Fundus below umbilicus. Bandage c/d/i Extremities: Warm and well-perfused. Neuro: Globally intact Recent Labs Lab Units 09/20/24 0448 09/18/24 0621 09/15/24 0617 WBC K/cumm 10.3* 10.0* 10.1* HEMOGLOBIN g/dL 9.7* 11.6* 11.7* HEMATOCRIT % 28.4* 34.0* 34.6* PLATELETS K/cumm 230 250 253 CREATININE mg/dL -- 0.69 0.66 AST Units/L -- 16 20 ALT Units/L -- 14 19 GLUCOSE mg/dL -- 68* 106 Assessment and Plan 29 y.o. POD#1from [facility]. Problem Care Following Delivery # ID: Afebrile. No signs/symptoms of infection. #VZV equivocal: Recommend varivax pp. #SSppx: Keflex/Flagyl 500mg q8h for 48h. # Heme: QBL 800 mL. Hemodynamically stable. Pre-op Hb 11.6 > POD1 Hb 9.7. Start on PO iron. #Rh negative: s/p rhogam on 08/01. For rhogam work up pp # CV/Pulm: Pre-eclampsia with severe features - magnesium sulfate running at 2g/hr for a total of 24 hours . Blood pressures well controlled on N120XL and M560MSA. CBC/CMP WNL, UPC 0.1. To be enrolled in remote blood pressure monitoring. #Sinus tachycardia, intermittent: Likely secondary to reflex tachycardia from nifedipine. Thyroid studies normal. Elevated D-dimer with CTPE negative. EKG PRN. #Chronic headaches: Well controlled on magnesium and riboflavin. # GI/: Tolerating PO. Rainey in place. Void trial today after magnesium. # Pain: Controlled with above regimen. Enrolled in PANDA: randomized to NSAIDs group. #depression/anxiety: Stable on no meds. For SW pp. # MOC: s/p nexplanon placement [...] # Disposition: Follow up task sent to [facility] scheduling pool for appointments in 2 and 6 weeks. They are enrolled in remote blood pressure monitoring for their BP check. Continue routine postoperative care. Service Coverage These phones are service phones and carried 27/04 in house: R1 (first call) [phone] R1 alt (second call) [phone] R4 (Chief) [phone] Marielle Shanks DO Resident Physician, PGY-1 Department of Obstetrics & Gynecology R4 Attestation I agree with the above documentation. POD#1 scheduled pLTCS for Shay and PreEwSF. Continues on MgSO4 until this afternoon 1500, BPs well controlled on current 2 agent regimen. Continue routine care. Sue Rodriguez MD PGY-4 Cosigned by Abigail Alberto MD at 09/20/2024 6:12 PM GAS APPLIANCE REPAIRER APPLIANCE REPAIRER APPLIANCE REPAIRER APPLIANCE REPAIRER Associated attestation - Abigail Alberto MD - 09/20/2024 6:12 PM GAS APPLIANCE REPAIRER I have seen and examined the patient on 09/20/24. I agree with the findings and plan of care as documented in the resident's/fellow's note. Abigail Alberto MD 09/19/2024 - 34w0d - Anastasia Sheppard MD Antepartum Progress Note Gestational Age: 34w0d Admission Date: 07/29/2024 Length of stay: 52 Admission Diagnosis: preeclampsia with severe features otherwise affected by: Shay twins, Twin B with aortic root dilation and lateral ventriculomegaly, chronic headaches, Rh neg, dep/anxiety INTERVAL EVENTS - NAEON - BPs normotensive - NPO since midnight for pCS this afternoon SUBJECTIVE - Feeling well, no complaints Review of Systems Negative except as per above OBJECTIVE Vitals: Temp: [36.6 ??C (97.9 ??F)-37.2 ??C (98.9 ??F)] 36.7 ??C (98 ??F) Pulse: [85-118] 85 Resp: [16-18] 18 BP: (123-140)/(77-87) 123/79 FHR: reactive NST [place]: no regular contractions Physical Exam General: No acute distress. Lungs: Non-labored. Abdomen: Deferred Extremities: Warm and well-perfused. No bilateral lower extremity calf tenderness. Trace non pitting lower extremity edema Pelvic: Deferred. Neurologic: Deferred Lab Review: Recent Labs Lab Units 09/18/24 0621 09/15/24 0617 WBC K/cumm 10.0* 10.1* HEMOGLOBIN g/dL 11.6* 11.7* HEMATOCRIT % 34.0* 34.6* PLATELETS K/cumm 250 253 Recent Labs Lab Units 09/18/24 0621 09/15/24 0617 SODIUM mmol/L 134* 139 POTASSIUM PLASMA mmol/L 3.8 3.5 CHLORIDE mmol/L 105 106 CO2 mmol/L 23 21* ANIONGAP mmol/L 6 12 GLUCOSE mg/dL 68* 106 BUN SERUM mg/dL 9 8 CREATININE mg/dL 0.69 0.66 CALCIUM mg/dL 9.0 9.0 ALBUMIN g/dL 3.0* 3.0* ALK PHOS Units/L 125 124 ALT Units/L 14 19 AST Units/L 16 20 BILIRUBIN TOTAL mg/dL 0.2 <0.2 ASSESSMENT/PLAN Suki Leon 29 y.o. at 34w0d a/f preeclampsia with severe features #PreE w/SF - Dx based on newly elevated blood pressures requiring IV meds prior to transfer - presented to OSH with sustained severe range BP requiring L20 - Given 4g Mg bolus prior to transfer - BPs normotensive to mild range on admission - Admission labs CBC Hgb 11.4 Plt 278 /CMP Cr 0.56 AST 21 ALT 19/UPC 0.122 - Home regimen: None - 24 hr spotting: none - s/p Mag (stopped 07/29) due to stability - APLS: Lupus AC, Beta2 glycoprotein IgM/IgG, cardiolipin IgG.IgM negative 08/04 Plan: - Nifedipine XL 120 (^09/02), labetalol 300mg TID (09/14) - q72h CBC/CMP, T&S - del by 34 weeks, pCS 12@1330 #sinus tachycardia, intermittent #suspected reflex tachycardia from nifedipine - 08/04 episode of tachycardia to 130-140s - EKG with sinus tachycardia x2 - asymptomatic, negative exam - 08/05 neg RVP - 08/05 Ddimer [address] PE negative (obtained per YEARS criteria) - Thyroid studies WNL #Chronic headaches - Hx SHIPLEY inside and outside of , previously on nortriptyline prior to - Presenting headache feels like prior episodes - Intermittent mild headache responsive to APAP and reglan - takes nortriptyline outside of , discussed restarting if persistent headache and acceptable safety profile in - headaches improved with ear ache treatment as separate problem - If headaches resume, consider magnesium/riboflavin #ear ache/fullness, improving - exam 08/19 with no e/o infection, mild erythema without bulging or purulence behind tympanic membrane - repeat exam 08/28 same as above - improving with flonase spray, mucinex, debrox drops - if does not improve, repeat ear exam and consider antibiotics #Aortic dilation of Fetus B - 07/27 Fetus A: Ascending/isthmus of aorta is mildly enlarged today on imaging. Aortic valve size measures within normal limits and peak systolic velocity measurements are within normal limits. Difficult to assess if aortic valve is bi or tri-leaflet. - echo Twin A 08/03: WNL - echo Twin B 08/03: mildly dilated ascending aorta (0.75cm) (same as previous scan but twins moved positions) - s/p cardiology consult - plan for echo of twin B prior to discharge #lateral ventriculomegaly of twin B - fUS 08/09: Twin A: vertex, normal MVP, Twin B: vertex, normal MVP, mild left sided ventriculomegaly, right difficult to visualize. - s/p NICU consult 08/10 #Depression/ Anxiety - Previously on SSRI, stable mood this with no meds #MO -BMI 47 #FWB: #Shay TIUP - BSUS Vertex/Vertex - Genetic screening: LR NIPT, neg carrier screening - Anatomy US: Shay Twins, no evidence of TAPS or TTTS - fUS 09/15: Twin 1 Vertex, DVP 3.9, normal bladder, normal UA dopplers, MCA 0.95 MoM, Twin 2 Vertex (presenting), DVP 3.5, normal bladder, normal UA dopplers, MCA 1.27 MoM, 33% discordance - BMZ^07/30 @2330 - Mg stopped 07/29 - PCN deferred - S/p peds consult 08/10 - MONITORING PLAN: dNST #MWB #VZV equivocal #Rh negative - PNL: Rh Neg/Ab Neg/HIV NR/Rub Imm/RPR NR/HepB NR/GC/CT Not obtained/VZV Equiv - 1 hr GTT early 82 - 1hr GTT 106 - 3T HIV/RPR NR/NR - s/p flu vax 07/12, Tdap 08/09, RSV 09/05 - Rhogam 08/01 - GBS neg 09/03 - MOD: pCS on 09/19 - MOF: breast - MOC: nexplanon - AC: BID ppx lovenox Anastasia Plaza MD 09/19/24 Cosigned by Josefina Peter MD at 10/05/2024 8:24 PM GAS APPLIANCE REPAIRER APPLIANCE REPAIRER APPLIANCE REPAIRER Associated attestation - Josefina Peter MD - 10/05/2024 8:24 PM GAS APPLIANCE REPAIRER I have seen and examined the patient on 09/19/24. I agree with the findings and plan of care as documented in the resident's/fellow's note. Patient managed expectantly having preeclampsia with severe features and MC/DA twins, now 34 weeks gestation. Plan delivery by CS today. Josefina Peter MD 09/18/2024 - 33w6d - Leeanne Quinonez MD Antepartum Progress Note Gestational Age: 33w6d Admission Date: 07/29/2024 Length of stay: 51 Admission Diagnosis: preeclampsia with severe features otherwise affected by: Shay twins, Twin B with aortic root dilation and lateral ventriculomegaly, chronic headaches, Rh neg, dep/anxiety INTERVAL EVENTS - NAEON - BPs normotensive SUBJECTIVE - Feeling well, no complaints Review of Systems Negative except as per above OBJECTIVE Vitals: Temp: [36.5 ??C (97.7 ??F)-36.7 ??C (98.1 ??F)] 36.6 ??C (97.9 ??F) Pulse: [91-105] 100 Resp: [18] 18 BP: (112-135)/(62-89) 135/89 FHR: reactive NST [place]: no regular contractions Physical Exam General: No acute distress. Lungs: Non-labored. Abdomen: Deferred Extremities: Warm and well-perfused. No bilateral lower extremity calf tenderness. Trace non pitting lower extremity edema Pelvic: Deferred. Neurologic: Deferred Lab Review: Recent Labs Lab Units 09/18/24 0621 09/15/24 0617 09/12/24 0635 WBC K/cumm 10.0* 10.1* 10.0* HEMOGLOBIN g/dL 11.6* 11.7* 11.8* HEMATOCRIT % 34.0* 34.6* 35.3* PLATELETS K/cumm 250 253 226 Recent Labs Lab Units 09/18/24 0621 09/15/24 0617 09/12/24 0635 SODIUM mmol/L 134* 139 139 POTASSIUM PLASMA mmol/L 3.8 3.5 3.8 CHLORIDE mmol/L 105 106 107 CO2 mmol/L 23 21* 22 ANIONGAP mmol/L 6 12 10 GLUCOSE mg/dL 68* 106 69* BUN SERUM mg/dL 9 8 6 CREATININE mg/dL 0.69 0.66 0.64 CALCIUM mg/dL 9.0 9.0 8.8 ALBUMIN g/dL 3.0* 3.0* 3.1* ALK PHOS Units/L 125 124 122 ALT Units/L 14 19 22 AST Units/L 16 20 23 BILIRUBIN TOTAL mg/dL 0.2 <0.2 <0.2 ASSESSMENT/PLAN Suki Leon 29 y.o. at 33w6d a/f preeclampsia with severe features #PreE w/SF - Dx based on newly elevated blood pressures requiring IV meds prior to transfer - presented to OSH with sustained severe range BP requiring L20 - Given 4g Mg bolus prior to transfer - BPs normotensive to mild range on admission - Admission labs CBC Hgb 11.4 Plt 278 /CMP Cr 0.56 AST 21 ALT 19/UPC 0.122 - Home regimen: None - 24 hr spotting: none - s/p Mag (stopped 07/29) due to stability - APLS: Lupus AC, Beta2 glycoprotein IgM/IgG, cardiolipin IgG.IgM negative 08/04 Plan: - Nifedipine XL 120 (^09/02), labetalol 300mg TID (09/14) - q72h CBC/CMP, T&S - del by 34 weeks, pCS 09/19@1330 #sinus tachycardia, intermittent #suspected reflex tachycardia from nifedipine - 08/04 episode of tachycardia to 130-140s - EKG with sinus tachycardia x2 - asymptomatic, negative exam - 08/05 neg RVP - 08/05 Ddimer [address] PE negative (obtained per YEARS criteria) - Thyroid studies WNL #Chronic headaches - Hx SHIPLEY inside and outside of , previously on nortriptyline prior to - Presenting headache feels like prior episodes - Intermittent mild headache responsive to APAP and reglan - takes nortriptyline outside of , discussed restarting if persistent headache and acceptable safety profile in - headaches improved with ear ache treatment as separate problem - If headaches resume, consider magnesium/riboflavin #ear ache/fullness, improving - exam 08/19 with no e/o infection, mild erythema without bulging or purulence behind tympanic membrane - repeat exam 08/28 same as above - improving with flonase spray, mucinex, debrox drops - if does not improve, repeat ear exam and consider antibiotics #Aortic dilation of Fetus B - 07/27 Fetus A: Ascending/isthmus of aorta is mildly enlarged today on imaging. Aortic valve size measures within normal limits and peak systolic velocity measurements are within normal limits. Difficult to assess if aortic valve is bi or tri-leaflet. - echo Twin A 08/03: WNL - echo Twin B 08/03: mildly dilated ascending aorta (0.75cm) (same as previous scan but twins moved positions) - s/p cardiology consult - plan for echo of twin B prior to discharge #lateral ventriculomegaly of twin B - fUS 08/09: Twin A: vertex, normal MVP, Twin B: vertex, normal MVP, mild left sided ventriculomegaly, right difficult to visualize. - s/p NICU consult 08/10 #Depression/ Anxiety - Previously on SSRI, stable mood this with no meds #MO -BMI 47 #FWB: #Shay TIUP - BSUS Vertex/Vertex - Genetic screening: LR NIPT, neg carrier screening - Anatomy US: Shay Twins, no evidence of TAPS or TTTS - fUS 09/15: Twin 1 Vertex, DVP 3.9, normal bladder, normal UA dopplers, MCA 0.95 MoM, Twin 2 Vertex (presenting), DVP 3.5, normal bladder, normal UA dopplers, MCA 1.27 MoM, 33% discordance - BMZ^07/30 @2330 - Mg stopped 07/29 - PCN deferred - S/p peds consult 08/10 - MONITORING PLAN: dNST #MWB #VZV equivocal #Rh negative - PNL: Rh Neg/Ab Neg/HIV NR/Rub Imm/RPR NR/HepB NR/GC/CT Not obtained/VZV Equiv - 1 hr GTT early 82 - 1hr GTT 106 - 3T HIV/RPR NR/NR - s/p flu vax 07/12, Tdap 08/09, RSV 09/05 - Rhogam 08/01 - GBS neg 09/03 - MOD: pCS on 09/19 - MOF: breast - MOC: nexplanon - AC: BID ppx lovenox Rey Quinonez MD 09/18/24 Cosigned by Sandra Christy MD at 09/18/2024 8:19 AM GAS APPLIANCE REPAIRER APPLIANCE REPAIRER APPLIANCE REPAIRER Associated attestation - Sandra Christy MD - 09/18/2024 8:19 AM GAS APPLIANCE REPAIRER I have seen and examined the patient. I agree with the findings and plan of care as documented in this note. Sandra Christy MD MS Maternal- Medicine 09/17/2024 - 33w5d - Leeanne Quinonez MD Antepartum Progress Note Gestational Age: 33w5d Admission Date: 07/29/2024 Length of stay: 50 Admission Diagnosis: preeclampsia with severe features otherwise affected by: Shay twins, Twin B with aortic root dilation and lateral ventriculomegaly, chronic headaches, Rh neg, dep/anxiety INTERVAL EVENTS - NAEON SUBJECTIVE - Sleeping comfortably this AM Review of Systems Negative except as per above OBJECTIVE Vitals: Temp: [36.6 ??C (97.8 ??F)-36.7 ??C (98.1 ??F)] 36.7 ??C (98.1 ??F) Pulse: [90-104] 90 Resp: [18] 18 BP: (117-136)/(76-91) 133/81 FHR: reactive NST x2 [place]: no regular contractions Physical Exam General: No acute distress. Lungs: Non-labored. Abdomen: Deferred Extremities: Warm and well-perfused. No bilateral lower extremity calf tenderness. Trace non pitting lower extremity edema Pelvic: Deferred. Neurologic: Deferred Lab Review: Recent Labs Lab Units 09/15/24 0617 09/12/24 0635 WBC K/cumm 10.1* 10.0* HEMOGLOBIN g/dL 11.7* 11.8* HEMATOCRIT % 34.6* 35.3* PLATELETS K/cumm 253 226 Recent Labs Lab Units 09/15/24 0617 09/12/24 0635 SODIUM mmol/L 139 139 POTASSIUM PLASMA mmol/L 3.5 3.8 CHLORIDE mmol/L 106 107 CO2 mmol/L 21* 22 ANIONGAP mmol/L 12 10 GLUCOSE mg/dL 106 69* BUN SERUM mg/dL 8 6 CREATININE mg/dL 0.66 0.64 CALCIUM mg/dL 9.0 8.8 ALBUMIN g/dL 3.0* 3.1* ALK PHOS Units/L 124 122 ALT Units/L 19 22 AST Units/L 20 23 BILIRUBIN TOTAL mg/dL <0.2 <0.2 ASSESSMENT/PLAN Suki Leon 29 y.o. at 33w5d a/f preeclampsia with severe features #PreE w/SF - Dx based on newly elevated blood pressures requiring IV meds prior to transfer - presented to OSH with sustained severe range BP requiring L20 - Given 4g Mg bolus prior to transfer - BPs normotensive to mild range on admission - Admission labs CBC Hgb 11.4 Plt 278 /CMP Cr 0.56 AST 21 ALT 19/UPC 0.122 - Home regimen: None - 24 hr spotting: none - s/p Mag (stopped 07/29) due to stability - APLS: Lupus AC, Beta2 glycoprotein IgM/IgG, cardiolipin IgG.IgM negative 08/04 Plan: - Nifedipine XL 120 (^09/02), labetalol 300mg TID (09/14) - q72h CBC/CMP, T&S - del by 34 weeks, pCS 09/19@1330 #sinus tachycardia, intermittent #suspected reflex tachycardia from nifedipine - 08/04 episode of tachycardia to 130-140s - EKG with sinus tachycardia x2 - asymptomatic, negative exam - 08/05 neg RVP - 08/05 Ddim[address] PE negative (obtained per YEARS criteria) - Thyroid studies WNL #Chronic headaches - Hx SHIPLEY inside and outside of , previously on nortriptyline prior to - Presenting headache feels like prior episodes - Intermittent mild headache responsive to APAP and reglan - takes nortriptyline outside of , discussed restarting if persistent headache and acceptable safety profile in - headaches improved with ear ache treatment as separate problem - If headaches resume, consider magnesium/riboflavin #ear ache/fullness, improving - exam 08/19 with no e/o infection, mild erythema without bulging or purulence behind tympanic membrane - repeat exam 08/28 same as above - improving with flonase spray, mucinex, debrox drops - if does not improve, repeat ear exam and consider antibiotics #Aortic dilation of Fetus B - 07/27 Fetus A: Ascending/isthmus of aorta is mildly enlarged today on imaging. Aortic valve size measures within normal limits and peak systolic velocity measurements are within normal limits. Difficult to assess if aortic valve is bi or tri-leaflet. - echo Twin A 08/03: WNL - echo Twin B 08/03: mildly dilated ascending aorta (0.75cm) (same as previous scan but twins moved positions) - s/p cardiology consult - plan for echo of twin B prior to discharge #lateral ventriculomegaly of twin B - fUS 08/09: Twin A: vertex, normal MVP, Twin B: vertex, normal MVP, mild left sided ventriculomegaly, right difficult to visualize. - s/p NICU consult 08/10 #Depression/ Anxiety - Previously on SSRI, stable mood this with no meds #MO -BMI 47 #FWB: #Shay TIUP - BSUS Vertex/Vertex - Genetic screening: LR NIPT, neg carrier screening - Anatomy US: Shay Twins, no evidence of TAPS or TTTS - fUS 09/15: Twin 1 Vertex, DVP 3.9, normal bladder, normal UA dopplers, MCA 0.95 MoM, Twin 2 Vertex (presenting), DVP 3.5, normal bladder, normal UA dopplers, MCA 1.27 MoM, 33% discordance - BMZ^07/30 @2330 - Mg stopped 07/29 - PCN deferred - S/p peds consult 08/10 - MONITORING PLAN: dNST #MWB #VZV equivocal #Rh negative - PNL: Rh Neg/Ab Neg/HIV NR/Rub Imm/RPR NR/HepB NR/GC/CT Not obtained/VZV Equiv - 1 hr GTT early 82 - 1hr GTT 106 - 3T HIV/RPR NR/NR - s/p flu vax 07/12, Tdap 08/09, RSV 09/05 - RSV received (09/05) - Rhogam 08/01 - GBS neg 09/03 - MOD: pCS on 09/19 - MOF: breast - MOC: nexplanon - AC: BID ppx lovenox Rey Quinonez MD 09/17/24 Cosigned by Sandra Christy MD at 09/17/2024 8:19 AM GAS APPLIANCE REPAIRER APPLIANCE REPAIRER APPLIANCE REPAIRER Associated attestation - Sandra Christy MD - 09/17/2024 8:19 AM GAS APPLIANCE REPAIRER I have seen and examined the patient. I agree with the findings and plan of care as documented in this note. Sandra Christy MD MS Maternal- Medicine 09/16/2024 - 33w4d - Carola Espinal Chaplain Carola Murphy [facility] Spiritual Care Triage: [phone] 09/16/24 1100 Time Spent Start Time 1100 Stop Time 1115 Time Calculation (min) 15 min Clinical Encounter Type Visited With Patient Response Type Routine visit;Continuing visit Routine Visit Follow-up Reason for visit Support Outcomes and Progress Demonstrating care and respect Achieved Establish rapport and connectedness Achieved Interventions Interventions Offer emotional support;Offer spiritual/alevism support;Prayer APPLIANCE REPAIRER 09/16/2024 - 33w4d - Leeanne Quinonez MD Antepartum Progress Note Gestational Age: 33w4d Admission Date: 07/29/2024 Length of stay: 49 Admission Diagnosis: preeclampsia with severe features otherwise affected by: Shay twins, Twin B with aortic root dilation and lateral ventriculomegaly, chronic headaches, Rh neg, dep/anxiety INTERVAL EVENTS - Formal ultrasound with sFGR (type 1) of Twin 1 - BPs normotensive SUBJECTIVE - Feels well, no complaints. Review of Systems Negative except as per above OBJECTIVE Vitals: Temp: [36.4 ??C (97.6 ??F)-36.7 ??C (98.1 ??F)] 36.7 ??C (98.1 ??F) Pulse: [88-101] 101 Resp: [16-18] 18 BP: (119-136)/(70-83) 126/79 FHR: reactive NST x2 [place]: no regular contractions Physical Exam General: No acute distress. Lungs: Non-labored. Abdomen: Deferred Extremities: Warm and well-perfused. No bilateral lower extremity calf tenderness. Trace non pitting lower extremity edema Pelvic: Deferred. Neurologic: Deferred Lab Review: Recent Labs Lab Units 09/15/24 0617 09/12/24 0635 WBC K/cumm 10.1* 10.0* HEMOGLOBIN g/dL 11.7* 11.8* HEMATOCRIT % 34.6* 35.3* PLATELETS K/cumm 253 226 Recent Labs Lab Units 09/15/24 0617 09/12/24 0635 SODIUM mmol/L 139 139 POTASSIUM PLASMA mmol/L 3.5 3.8 CHLORIDE mmol/L 106 107 CO2 mmol/L 21* 22 ANIONGAP mmol/L 12 10 GLUCOSE mg/dL 106 69* BUN SERUM mg/dL 8 6 CREATININE mg/dL 0.66 0.64 CALCIUM mg/dL 9.0 8.8 ALBUMIN g/dL 3.0* 3.1* ALK PHOS Units/L 124 122 ALT Units/L 19 22 AST Units/L 20 23 BILIRUBIN TOTAL mg/dL <0.2 <0.2 ASSESSMENT/PLAN Suki Leon 29 y.o. at 33w4d a/f preeclampsia with severe features #PreE w/SF - Dx based on newly elevated blood pressures requiring IV meds prior to transfer - presented to OSH with sustained severe range BP requiring L20 - Given 4g Mg bolus prior to transfer - BPs normotensive to mild range on admission - Admission labs CBC Hgb 11.4 Plt 278 /CMP Cr 0.56 AST 21 ALT 19/UPC 0.122 - Home regimen: None - 24 hr spotting: none - s/p Mag (stopped 07/29) due to stability - APLS: Lupus AC, Beta2 glycoprotein IgM/IgG, cardiolipin IgG.IgM negative 08/04 Plan: - Nifedipine XL 120 (^09/02), labetalol 300mg TID (09/14) - q72h CBC/CMP, T&S - del by 34 weeks, 09/19 pCS, needs scheduling #sinus tachycardia, intermittent #suspected reflex tachycardia from nifedipine - 08/04 episode of tachycardia to 130-140s - EKG with sinus tachycardia x2 - asymptomatic, negative exam - 08/05 neg RVP - 08/05 Ddimer [address] PE negative (obtained per YEARS criteria) - Thyroid studies WNL #Chronic headaches - Hx SHIPLEY inside and outside of , previously on nortriptyline prior to - Presenting headache feels like prior episodes - Intermittent mild headache responsive to APAP and reglan - takes nortriptyline outside of , discussed restarting if persistent headache and acceptable safety profile in - headaches improved with ear ache treatment as separate problem - If headaches resume, consider magnesium/riboflavin #ear ache/fullness, improving - exam 08/19 with no e/o infection, mild erythema without bulging or purulence behind tympanic membrane - repeat exam 08/28 same as above - improving with flonase spray, mucinex, debrox drops - if does not improve, repeat ear exam and consider antibiotics #Aortic dilation of Fetus B - 07/27 Fetus A: Ascending/isthmus of aorta is mildly enlarged today on imaging. Aortic valve size measures within normal limits and peak systolic velocity measurements are within normal limits. Difficult to assess if aortic valve is bi or tri-leaflet. - echo Twin A 08/03: WNL - echo Twin B 08/03: mildly dilated ascending aorta (0.75cm) (same as previous scan but twins moved positions) - s/p cardiology consult - plan for echo of twin B prior to discharge #lateral ventriculomegaly of twin B - fUS 08/09: Twin A: vertex, normal MVP, Twin B: vertex, normal MVP, mild left sided ventriculomegaly, right difficult to visualize. - s/p NICU consult 08/10 #Depression/ Anxiety - Previously on SSRI, stable mood this with no meds #MO -BMI 47 #FWB: #Shay TIUP - BSUS Vertex/Vertex - Genetic screening: LR NIPT, neg carrier screening - Anatomy US: Shay Twins, no evidence of TAPS or TTTS - fUS 09/15: Twin 1 Vertex, DVP 3.9, normal bladder, normal UA dopplers, MCA 0.95 MoM, Twin 2 Vertex (presenting), DVP 3.5, normal bladder, normal UA dopplers, MCA 1.27 MoM, 33% discordance - BMZ^07/30 @2330 - Mg stopped 07/29 - PCN deferred - S/p peds consult 08/10 - MONITORING PLAN: dNST - Ultrasound: growth due 09/18 (prior to deliver), Shay screen n/a #MWB #VZV equivocal #Rh negative - PNL: Rh Neg/Ab Neg/HIV NR/Rub Imm/RPR NR/HepB NR/GC/CT Not obtained/VZV Equiv - 1 hr GTT early 82 - 1hr GTT 106 - 3T HIV/RPR NR/NR - s/p flu vax 07/12, Tdap 08/09, RSV 09/05 - RSV received (09/05) - Rhogam 08/01 - GBS neg 09/03 - MOD: pCS on 09/19 - MOF: breast - MOC: nexplanon - AC: BID ppx lovenox Rey Quinonez MD 09/16/24 Cosigned by Sandra Christy MD at 09/16/2024 9:27 AM GAS APPLIANCE REPAIRER APPLIANCE REPAIRER APPLIANCE REPAIRER Associated attestation - Sandra Christy MD - 09/16/2024 9:27 AM GAS APPLIANCE REPAIRER I have seen and examined the patient. I agree with the findings and plan of care as documented in this note. Plan for delivery at 34 weeks for preeclampsia with severe features and sFGR of Twin 1. After counseling yesterday, patient desires primary CS for mode of del. Sandra Christy MD MS Maternal- Medicine 09/15/2024 - 33w3d - Joellen Schilling MD Brief Note Went to bedside to discuss US findings with patient. Reviewed diagnosis of sFGR of twin 1 with normal UAD. Reviewed physiology of FGR and risk of IUFD. Reviewed recommended delivery timing at 34w, which is already scheduled. Patient is feeling normal movement and had BPP 10/10 for twin 1 today, 8/10 for twin B. Discussed mode of delivery in setting of vtx/vtx presentation, twin 2 (larger twin) presenting. Reviewed that twin 2 is currently presenting and is the larger twin. Reviewed risks of breech extraction of aftercoming twin including head entrapment, as well as risk of emergent CS for aftercoming twin. Patient does not accept risks of breech extraction and states she has been leaning toward CS for a while now. She is aware she is a good candidate for planned vaginal delivery, but is more comfortable with CS at this time. Discussed risks of CS including bleeding, infection, and more difficult recovery as well as implications for future pregnancies. All questions answered. Plan to schedule CS at 34w0d and continue daily testing. Joellen Schilling MD Maternal- Medicine Fellow APPLIANCE REPAIRER 09/15/2024 - 33w3d - Anastasia Sheppard MD Antepartum Progress Note Gestational Age: 33w3d Admission Date: 07/29/2024 Length of stay: 48 Admission Diagnosis: preeclampsia with severe features otherwise affected by: Shay twins, Twin B with aortic root dilation and lateral ventriculomegaly, chronic headaches, Rh neg, dep/anxiety INTERVAL EVENTS - NAEON - BPs normotensive SUBJECTIVE Feels well, no complaints. Review of Systems Negative except as per above OBJECTIVE Vitals: Temp: [36.4 ??C (97.6 ??F)-36.8 ??C (98.3 ??F)] 36.4 ??C (97.6 ??F) Pulse: [107-114] 111 Resp: [14-18] 18 BP: (122-137)/(61-88) 124/61 FHR: reactive NST x2 [place]: no regular contractions Physical Exam General: No acute distress. Lungs: Non-labored. Abdomen: Deferred Extremities: Warm and well-perfused. No bilateral lower extremity calf tenderness. Trace non pitting lower extremity edema Pelvic: Deferred. Neurologic: Deferred Lab Review: Recent Labs Lab Units 09/15/24 0617 09/12/24 0635 09/09/24 0624 WBC K/cumm 10.1* 10.0* 8.6 HEMOGLOBIN g/dL 11.7* 11.8* 10.9* HEMATOCRIT % 34.6* 35.3* 33.1* PLATELETS K/cumm 253 226 239 Recent Labs Lab Units 09/15/24 0617 09/12/24 0635 09/09/24 0624 SODIUM mmol/L 139 139 141 POTASSIUM PLASMA mmol/L 3.5 3.8 3.8 CHLORIDE mmol/L 106 107 108 CO2 mmol/L 21* 22 22 ANIONGAP mmol/L 12 10 11 GLUCOSE mg/dL 106 69* 70 BUN SERUM mg/dL 8 6 8 CREATININE mg/dL 0.66 0.64 0.75 CALCIUM mg/dL 9.0 8.8 8.9 ALBUMIN g/dL 3.0* 3.1* 3.2* ALK PHOS Units/L 124 122 117 ALT Units/L 19 22 22 AST Units/L 20 23 23 BILIRUBIN TOTAL mg/dL <0.2 <0.2 <0.2 ASSESSMENT/PLAN 29 y.o. at 33w3d a/f preeclampsia with severe features #PreE w/SF - Dx based on newly elevated blood pressures requiring IV meds prior to transfer - presented to OSH with sustained severe range BP requiring L20 - Given 4g Mg bolus prior to transfer - BPs normotensive to mild range on admission - Admission labs CBC Hgb 11.4 Plt 278 /CMP Cr 0.56 AST 21 ALT 19/UPC 0.122 - Home regimen: None - 24 hr spotting: none - s/p Mag (stopped 07/29) due to stability - APLS: Lupus AC, Beta2 glycoprotein IgM/IgG, cardiolipin IgG.IgM negative 08/04 Plan: - Nifedipine XL 120 (^09/02), labetalol 300mg TID (09/14) - q72h CBC/CMP, T&S - del by 34 weeks, 09/19 IOL @ 0530 #sinus tachycardia, intermittent #suspected reflex tachycardia from nifedipine - 08/04 episode of tachycardia to 130-140s - EKG with sinus tachycardia x2 - asymptomatic, negative exam - 08/05 neg RVP - 08/05 Ddimer [address] PE negative (obtained per YEARS criteria) - Thyroid studies WNL #Chronic headaches - Hx SHIPLEY inside and outside of , previously on nortriptyline prior to - Presenting headache feels like prior episodes - Intermittent mild headache responsive to APAP and reglan - takes nortriptyline outside of , discussed restarting if persistent headache and acceptable safety profile in - headaches improved with ear ache treatment as separate problem - If headaches resume, consider magnesium/riboflavin #ear ache/fullness, improving - exam 08/19 with no e/o infection, mild erythema without bulging or purulence behind tympanic membrane - repeat exam 08/28 same as above - improving with flonase spray, mucinex, debrox drops - if does not improve, repeat ear exam and consider antibiotics #Aortic dilation of Fetus B - 07/27 Fetus A: Ascending/isthmus of aorta is mildly enlarged today on imaging. Aortic valve size measures within normal limits and peak systolic velocity measurements are within normal limits. Difficult to assess if aortic valve is bi or tri-leaflet. - echo Twin A 08/03: WNL - echo Twin B 08/03: mildly dilated ascending aorta (0.75cm) (same as previous scan but twins moved positions) - s/p cardiology consult - plan for echo of twin B prior to discharge #lateral ventriculomegaly of twin B - fUS 08/09: Twin A: vertex, normal MVP, Twin B: vertex, normal MVP, mild left sided ventriculomegaly, right difficult to visualize. - s/p NICU consult 08/10 #Depression/ Anxiety - Previously on SSRI, stable mood this with no meds #MO -BMI 47 #FWB: #Shay TIUP - BSUS Vertex/Vertex - Genetic screening: LR NIPT, neg carrier screening - Anatomy US: Shay Twins, no evidence of TAPS or TTTS - fUS 08/24: vert/vert; Twin 2 now presenting larger twin, EFW 1784g (79ile); Twin 1 nl mo di screen, EFW 1348g (11ile). Discordance 25% - fUS 09/08: Twin 1 Vertex, DVP 3.3, normal bladder, normal UA dopplers, MCA 1.01 MOM, Twin 2 Vertex (presenting), DVP 5.4, normal bladder, normal UA dopplers, MCA 1.11 MoM - BMZ^07/30 @2330 - Mg stopped 07/29 - PCN deferred - S/p peds consult 08/10 - MONITORING PLAN: dNST - Ultrasound: growth due 09/18 (prior to deliver), Shay screen n/a #MWB #VZV equivocal #Rh negative - PNL: Rh Neg/Ab Neg/HIV NR/Rub Imm/RPR NR/HepB NR/GC/CT Not obtained/VZV Equiv - 1 hr GTT early 82 - 1hr GTT 106 - 3T HIV /RPR NR/NR - s/p flu vax 07/12, Tdap 08/09, RSV 09/05 - RSV received (09/05) - Rhogam 08/01 - GBS neg 09/03 - MOD: TBD, IOL 09/19 @ 0530 - MOF: breast - MOC: nexplanon - AC: BID ppx lovenox Anastasia Plaza MD 09/15/24 Cosigned by Sandra Christy MD at 09/15/2024 11:55 AM GAS APPLIANCE REPAIRER APPLIANCE REPAIRER APPLIANCE REPAIRER Associated attestation - Sandra Christy MD - 09/15/2024 11:55 AM GAS APPLIANCE REPAIRER I have seen and examined the patient. I agree with the findings and plan of care as documented in this note. Follow up growth US to discuss mode of del Sandra Christy MD MS Maternal- Medicine 09/14/2024 - 33w2d - Sandra Giordano MD Antepartum Progress Note Gestational Age: 33w2d Admission Date: 07/29/2024 Length of stay: 47 Admission Diagnosis: preeclampsia with severe features otherwise affected by: Shay twins, Twin B with aortic root dilation and lateral ventriculomegaly, chronic headaches, Rh neg, dep/anxiety INTERVAL EVENTS - NAEON - BPs mostly MR RUBALCAVA Feels well,. No complaints. Review of Systems Negative except as per above OBJECTIVE Vitals: Temp: [36.6 ??C (97.8 ??F)-36.8 ??C (98.3 ??F)] 36.6 ??C (97.9 ??F) Pulse: [93-108] 108 Resp: [16-18] 17 BP: (127-141)/(86-99) 140/91 FHR: reactive NST x2 [place]: no regular contractions Physical Exam General: No acute distress. Lungs: Non-labored. Abdomen: Deferred Extremities: Warm and well-perfused. No bilateral lower extremity calf tenderness. Trace non pitting lower extremity edema Pelvic: Deferred. Neurologic: Deferred Lab Review: Recent Labs Lab Units 09/12/24 0635 09/09/24 0624 WBC K/cumm 10.0* 8.6 HEMOGLOBIN g/dL 11.8* 10.9* HEMATOCRIT % 35.3* 33.1* PLATELETS K/cumm 226 239 Recent Labs Lab Units 09/12/24 0635 09/09/24 0624 SODIUM mmol/L 139 141 POTASSIUM PLASMA mmol/L 3.8 3.8 CHLORIDE mmol/L 107 108 CO2 mmol/L 22 22 ANIONGAP mmol/L 10 11 GLUCOSE mg/dL 69* 70 BUN SERUM mg/dL 6 8 CREATININE mg/dL 0.64 0.75 CALCIUM mg/dL 8.8 8.9 ALBUMIN g/dL 3.1* 3.2* ALK PHOS Units/L 122 117 ALT Units/L 22 22 AST Units/L 23 23 BILIRUBIN TOTAL mg/dL <0.2 <0.2 ASSESSMENT/PLAN 29 y.o. at 33w2d a/f preeclampsia with severe features #PreE w/SF - Dx based on newly elevated blood pressures requiring IV meds prior to transfer - presented to OSH with sustained severe range BP requiring L20 - Given 4g Mg bolus prior to transfer - BPs normotensive to mild range on admission - Admission labs CBC Hgb 11.4 Plt 278 /CMP Cr 0.56 AST 21 ALT 19/UPC 0.122 - Home regimen: None - 24 hr spotting: none - s/p Mag (stopped 07/29) due to stability - APLS: Lupus AC, Beta2 glycoprotein IgM/IgG, cardiolipin IgG.IgM negative 08/04 Plan: - Nifedipine XL 120 (^09/02), labetalol 300mg TID (09/14) - q72h CBC/CMP, T&S - del by 34 weeks, 09/19 IOL @ 0530 #sinus tachycardia, intermittent #suspected reflex tachycardia from nifedipine - 08/04 episode of tachycardia to 130-140s - EKG with sinus tachycardia x2 - asymptomatic, negative exam - 08/05 neg RVP - 08/05 D[address] PE negative (obtained per YEARS criteria) - Thyroid studies WNL #Chronic headaches - Hx SHIPLEY inside and outside of , previously on nortriptyline prior to - Presenting headache feels like prior episodes - Intermittent mild headache responsive to APAP and reglan - takes nortriptyline outside of , discussed restarting if persistent headache and acceptable safety profile in - headaches improved with ear ache treatment as separate problem - If headaches resume, consider magnesium/riboflavin #ear ache/fullness, improving - exam 08/19 with no e/o infection, mild erythema without bulging or purulence behind tympanic membrane - repeat exam 08/28 same as above - improving with flonase spray, mucinex, debrox drops - if does not improve, repeat ear exam and consider antibiotics #Aortic dilation of Fetus B - 07/27 Fetus A: Ascending/isthmus of aorta is mildly enlarged today on imaging. Aortic valve size measures within normal limits and peak systolic velocity measurements are within normal limits. Difficult to assess if aortic valve is bi or tri-leaflet. - echo Twin A 08/03: WNL - echo Twin B 08/03: mildly dilated ascending aorta (0.75cm) (same as previous scan but twins moved positions) - s/p cardiology consult - plan for echo of twin B prior to discharge #lateral ventriculomegaly of twin B - fUS 08/09: Twin A: vertex, normal MVP, Twin B: vertex, normal MVP, mild left sided ventriculomegaly, right difficult to visualize. - s/p NICU consult 08/10 #Depression/ Anxiety - Previously on SSRI, stable mood this with no meds #MO -BMI 47 #FWB: #Shay TIUP - BSUS Vertex/Vertex - Genetic screening: LR NIPT, neg carrier screening - Anatomy US: Shay Twins, no evidence of TAPS or TTTS - fUS 08/24: vert/vert; Twin 2 now presenting larger twin, EFW 1784g (79ile); Twin 1 nl mo di screen, EFW 1348g (11ile). Discordance 25% - fUS 09/08: Twin 1 Vertex, DVP 3.3, normal bladder, normal UA dopplers, MCA 1.01 MOM, Twin 2 Vertex (presenting), DVP 5.4, normal bladder, normal UA dopplers, MCA 1.11 MoM - BMZ^07/30 @2330 - Mg stopped 07/29 - PCN deferred - S/p peds consult 08/10 - MONITORING PLAN: dNST - Ultrasound: growth due 09/18 (prior to deliver), Shay screen n/a #MWB #VZV equivocal #Rh negative - PNL: Rh Neg/Ab Neg/HIV NR/Rub Imm/RPR NR/HepB NR/GC/CT Not obtained/VZV Equiv - 1 hr GTT early 82 - 1hr GTT 106 - 3T HIV /RPR NR/NR - s/p flu vax 07/12, Tdap 08/09, RSV 09/05 - RSV received (09/05) - Rhogam 08/01 - GBS neg 09/03 - MOD: TBD, IOL 09/19 @ 0530 - MOF: breast - MOC: nexplanon - AC: BID ppx lovenox Anastasia Plaza MD 09/14/24 MFM attending: I have seen and examined the patient. I agree with the findings and plan of care as documented in this note. Sandra Christy MD MS Maternal- Medicine APPLIANCE REPAIRER APPLIANCE REPAIRER 09/13/2024 - 33w1d - Millie Pierce LCSW Reason for Admission Pt (Suki Leon 1995) was admitted on 07/29/2024 for Preeclampsia, unspecified trimester [O14.90]. Pt discussed in DCAM rounds with medical team. Per DCAM rounds, pt remains admitted to the [facility] due to ongoing medical needs. SW to follow for coping, adjustment to diagnosis as needed, and assess for social needs. SW remains available. ARACELIS Tyler, LEO [facility] APPLIANCE REPAIRER 09/13/2024 - 33w1d - Anastasia Sheppard MD Antepartum Progress Note Gestational Age: 33w1d Admission Date: 07/29/2024 Length of stay: 46 Admission Diagnosis: preeclampsia with severe features otherwise affected by: Shay twins, Twin B with aortic root dilation and lateral ventriculomegaly, chronic headaches, Rh neg, dep/anxiety INTERVAL EVENTS - NAEON - BPs mostly normotensive, occasional MR SUBJECTIVE - Resting comfortably Review of Systems Negative except as per above OBJECTIVE Vitals: Temp: [36.6 ??C (97.8 ??F)-37.1 ??C (98.7 ??F)] 36.9 ??C (98.4 ??F) Pulse: [87-97] 93 Resp: [16-18] 17 BP: (120-137)/(71-92) 131/84 FHR: reactive NST x2 [place]: no regular contractions Physical Exam General: No acute distress. Lungs: Non-labored. Abdomen: Deferred Extremities: Warm and well-perfused. No bilateral lower extremity calf tenderness. Trace non pitting lower extremity edema Pelvic: Deferred. Neurologic: Deferred Lab Review: Recent Labs Lab Units 09/12/24 0635 09/09/24 0624 WBC K/cumm 10.0* 8.6 HEMOGLOBIN g/dL 11.8* 10.9* HEMATOCRIT % 35.3* 33.1* PLATELETS K/cumm 226 239 Recent Labs Lab Units 09/12/24 0635 09/09/24 0624 SODIUM mmol/L 139 141 POTASSIUM PLASMA mmol/L 3.8 3.8 CHLORIDE mmol/L 107 108 CO2 mmol/L 22 22 ANIONGAP mmol/L 10 11 GLUCOSE mg/dL 69* 70 BUN SERUM mg/dL 6 8 CREATININE mg/dL 0.64 0.75 CALCIUM mg/dL 8.8 8.9 ALBUMIN g/dL 3.1* 3.2* ALK PHOS Units/L 122 117 ALT Units/L 22 22 AST Units/L 23 23 BILIRUBIN TOTAL mg/dL <0.2 <0.2 ASSESSMENT/PLAN 29 y.o. at 33w1d a/f preeclampsia with severe features #PreE w/SF - Dx based on newly elevated blood pressures requiring IV meds prior to transfer - presented to OSH with sustained severe range BP requiring L20 - Given 4g Mg bolus prior to transfer - BPs normotensive to mild range on admission - Admission labs CBC Hgb 11.4 Plt 278 /CMP Cr 0.56 AST 21 ALT 19/UPC 0.122 - Home regimen: None - 24 hr spotting: none - s/p Mag (stopped 07/29) due to stability - APLS: Lupus AC, Beta2 glycoprotein IgM/IgG, cardiolipin IgG.IgM negative 08/04 Plan: - Nifedipine XL 120 (^09/02), labetalol 200mg TID (09/06) - q72h CBC/CMP, T&S - del by 34 weeks, 09/19 IOL @ 0530 #sinus tachycardia, intermittent #suspected reflex tachycardia from nifedipine - 08/04 episode of tachycardia to 130-140s - EKG with sinus tachycardia x2 - asymptomatic, negative exam - 08/05 neg RVP - 08/05 [address] PE negative (obtained per YEARS criteria) - Thyroid studies WNL #Chronic headaches - Hx SHIPLEY inside and outside of , previously on nortriptyline prior to - Presenting headache feels like prior episodes - Intermittent mild headache responsive to APAP and reglan - takes nortriptyline outside of , discussed restarting if persistent headache and acceptable safety profile in - headaches improved with ear ache treatment as separate problem - If headaches resume, consider magnesium/riboflavin #ear ache/fullness, improving - exam 08/19 with no e/o infection, mild erythema without bulging or purulence behind tympanic membrane - repeat exam 08/28 same as above - improving with flonase spray, mucinex, debrox drops - if does not improve, repeat ear exam and consider antibiotics #Aortic dilation of Fetus B - 07/27 Fetus A: Ascending/isthmus of aorta is mildly enlarged today on imaging. Aortic valve size measures within normal limits and peak systolic velocity measurements are within normal limits. Difficult to assess if aortic valve is bi or tri-leaflet. - echo Twin A 08/03: WNL - echo Twin B 08/03: mildly dilated ascending aorta (0.75cm) (same as previous scan but twins moved positions) - s/p cardiology consult - plan for echo of twin B prior to discharge #lateral ventriculomegaly of twin B - fUS 08/09: Twin A: vertex, normal MVP, Twin B: vertex, normal MVP, mild left sided ventriculomegaly, right difficult to visualize. - s/p NICU consult 08/10 #Depression/ Anxiety - Previously on SSRI, stable mood this with no meds #MO -BMI 47 #FWB: #Shay TIUP - BSUS Vertex/Vertex - Genetic screening: LR NIPT, neg carrier screening - Anatomy US: Shay Twins, no evidence of TAPS or TTTS - fUS 08/24: vert/vert; Twin 2 now presenting larger twin, EFW 1784g (79ile); Twin 1 nl mo di screen, EFW 1348g (11ile). Discordance 25% - fUS 09/08: Twin 1 Vertex, DVP 3.3, normal bladder, normal UA dopplers, MCA 1.01 MOM, Twin 2 Vertex (presenting), DVP 5.4, normal bladder, normal UA dopplers, MCA 1.11 MoM - BMZ^07/30 @2330 - Mg stopped 07/29 - PCN deferred - S/p peds consult 08/10 - MONITORING PLAN: dNST - Ultrasound: growth due 09/18 (prior to deliver), Shay screen n/a #MWB #VZV equivocal #Rh negative - PNL: Rh Neg/Ab Neg/HIV NR/Rub Imm/RPR NR/HepB NR/GC/CT Not obtained/VZV Equiv - 1 hr GTT early 82 - 1hr GTT 106 - 3T HIV /RPR NR/NR - s/p flu vax 07/12, Tdap 08/09, RSV 09/05 - RSV received (09/05) - Rhogam 08/01 - GBS neg 09/03 - MOD: TBD, IOL 09/19 @ 0530 - MOF: breast - MOC: nexplanon - AC: BID ppx lovenox Anastasia Plaza MD 09/13/24 Cosigned by Sandra Christy MD at 09/13/2024 10:29 AM GAS APPLIANCE REPAIRER APPLIANCE REPAIRER APPLIANCE REPAIRER Associated attestation - Sandra Christy MD - 09/13/2024 10:29 AM GAS APPLIANCE REPAIRER I have seen and examined the patient. I agree with the findings and plan of care as documented in this note. Sandra Christy MD MS Maternal- Medicine 09/12/2024 - w0d - Carola Espinal Chaplain Carola Murphy [facility] Spiritual Care Triage: [phone] 09/12/24 1045 Time Spent Start Time 1045 Stop Time 1100 Time Calculation (min) 15 min Clinical Encounter Type Visited With Patient Response Type Routine visit;Continuing visit Routine Visit Follow-up Reason for visit Support Outcomes and Progress Demonstrating care and respect Achieved Establish rapport and connectedness Achieved Interventions Interventions Offer emotional support;Offer spiritual/alevism support APPLIANCE REPAIRER 09/12/2024 - w0d - Leeanne Quinonez MD Antepartum Progress Note Gestational Age: 33w0d Admission Date: 07/29/2024 Length of stay: 45 Admission Diagnosis: preeclampsia with severe features otherwise affected by: Shay twins, Twin B with aortic root dilation and lateral ventriculomegaly, chronic headaches, Rh neg, dep/anxiety INTERVAL EVENTS - NAEON - BPs mostly normotensive SUBJECTIVE - Resting comfortably Review of Systems Negative except as per above OBJECTIVE Vitals: Temp: [36.7 ??C (98 ??F)-36.8 ??C (98.3 ??F)] 36.7 ??C (98.1 ??F) Pulse: [95-114] 101 Resp: [17-18] 17 BP: (120-143)/(76-90) 125/87 FHR: reactive NST x2 [place]: no regular contractions Physical Exam General: No acute distress. Lungs: Non-labored. Abdomen: Deferred Extremities: Warm and well-perfused. No bilateral lower extremity calf tenderness. Trace non pitting lower extremity edema Pelvic: Deferred. Neurologic: Deferred Lab Review: Recent Labs Lab Units 09/12/24 0635 09/09/24 0624 09/06/24 0431 WBC K/cumm 10.0* 8.6 10.3* HEMOGLOBIN g/dL 11.8* 10.9* 11.7* HEMATOCRIT % 35.3* 33.1* 34.5* PLATELETS K/cumm 226 239 249 Recent Labs Lab Units 09/12/24 0635 09/09/24 0624 09/06/24 0431 SODIUM mmol/L 139 141 138 POTASSIUM PLASMA mmol/L 3.8 3.8 3.6 CHLORIDE mmol/L 107 108 105 CO2 mmol/L 22 22 24 ANIONGAP mmol/L 10 11 9 GLUCOSE mg/dL 69* 70 62* BUN SERUM mg/dL 6 8 7 CREATININE mg/dL 0.64 0.75 0.63 CALCIUM mg/dL 8.8 8.9 9.3 ALBUMIN g/dL 3.1* 3.2* 3.2* ALK PHOS Units/L 122 117 118 ALT Units/L 22 22 23 AST Units/L 23 23 22 BILIRUBIN TOTAL mg/dL <0.2 <0.2 0.3 ASSESSMENT/PLAN 29 y.o. at 33w0d a/f preeclampsia with severe features #PreE w/SF - Dx based on newly elevated blood pressures requiring IV meds prior to transfer - presented to OSH with sustained severe range BP requiring L20 - Given 4g Mg bolus prior to transfer - BPs normotensive to mild range on admission - Admission labs CBC Hgb 11.4 Plt 278 /CMP Cr 0.56 AST 21 ALT 19/UPC 0.122 - Home regimen: None - 24 hr spotting: none - s/p Mag (stopped 07/29) due to stability - APLS: Lupus AC, Beta2 glycoprotein IgM/IgG, cardiolipin IgG.IgM negative 08/04 Plan: - Nifedipine XL 120 (^09/02), labetalol 200mg TID (09/06) - q72h CBC/CMP, T&S - del by 34 weeks, 09/19 IOL @ 0530 #sinus tachycardia, intermittent #suspected reflex tachycardia from nifedipine - 08/04 episode of tachycardia to 130-140s - EKG with sinus tachycardia x2 - asymptomatic, negative exam - 08/05 neg RVP - 08/05 Ddim[address] PE negative (obtained per YEARS criteria) - Thyroid studies WNL #Chronic headaches - Hx SHIPLEY inside and outside of , previously on nortriptyline prior to - Presenting headache feels like prior episodes - Intermittent mild headache responsive to APAP and reglan - takes nortriptyline outside of , discussed restarting if persistent headache and acceptable safety profile in - headaches improved with ear ache treatment as separate problem - If headaches resume, consider magnesium/riboflavin #ear ache/fullness, improving - exam 08/19 with no e/o infection, mild erythema without bulging or purulence behind tympanic membrane - repeat exam 08/28 same as above - improving with flonase spray, mucinex, debrox drops - if does not improve, repeat ear exam and consider antibiotics #Aortic dilation of Fetus B - 07/27 Fetus A: Ascending/isthmus of aorta is mildly enlarged today on imaging. Aortic valve size measures within normal limits and peak systolic velocity measurements are within normal limits. Difficult to assess if aortic valve is bi or tri-leaflet. - echo Twin A 08/03: WNL - echo Twin B 08/03: mildly dilated ascending aorta (0.75cm) (same as previous scan but twins moved positions) - s/p cardiology consult - plan for echo of twin B prior to discharge #lateral ventriculomegaly of twin B - fUS 08/09: Twin A: vertex, normal MVP, Twin B: vertex, normal MVP, mild left sided ventriculomegaly, right difficult to visualize. - s/p NICU consult 08/10 #Depression/ Anxiety - Previously on SSRI, stable mood this with no meds #MO -BMI 47 #FWB: #Shay TIUP - BSUS Vertex/Vertex - Genetic screening: LR NIPT, neg carrier screening - Anatomy US: Shay Twins, no evidence of TAPS or TTTS - fUS 08/24: vert/vert; Twin 2 now presenting larger twin, EFW 1784g (79ile); Twin 1 nl mo di screen, EFW 1348g (11ile). Discordance 25% - fUS 09/08: Twin 1 Vertex, DVP 3.3, normal bladder, normal UA dopplers, MCA 1.01 MoM, Twin 2 Vertex (presenting), DVP 5.4, normal bladder, normal UA dopplers, MCA 1.11 MoM - BMZ^07/30 @2330 - Mg stopped 07/29 - PCN deferred - S/p peds consult 08/10 - MONITORING PLAN: dNST - Ultrasound: growth due 09/18 (prior to deliver), Shay screen n/a #MWB #VZV equivocal #Rh negative - PNL: Rh Neg/Ab Neg/HIV NR/Rub Imm/RPR NR/HepB NR/GC/CT Not obtained/VZV Equiv - 1 hr GTT early 82 - 1hr GTT 106 - 3T HIV /RPR NR/NR - s/p flu vax 07/12, Tdap 08/09, RSV 09/05 - RSV received (09/05) - Rhogam 08/01 - GBS neg 09/03 - MOD: TBD, IOL 09/19 @ 0530 - MOF: breast - MOC: nexplanon - AC: BID ppx lovenox Rey Quinonez MD 09/12/24 Cosigned by Sandra Christy MD at 09/12/2024 9:25 AM GAS APPLIANCE REPAIRER APPLIANCE REPAIRER APPLIANCE REPAIRER Associated attestation - Sandra Christy MD - 09/12/2024 9:25 AM GAS APPLIANCE REPAIRER I have seen and examined the patient. I agree with the findings and plan of care as documented in this note. Will address mode of del after next growth US Sandra Christy MD MS Maternal- Medicine 09/11/2024 - 32w6d - Anastasia Sheppard MD Antepartum Progress Note Gestational Age: 32w6d Admission Date: 07/29/2024 Length of stay: 44 Admission Diagnosis: preeclampsia with severe features otherwise affected by: Shay twins, Twin B with aortic root dilation and lateral ventriculomegaly, chronic headaches, Rh neg, dep/anxiety INTERVAL EVENTS - NAEON - BPs normotensive SUBJECTIVE - Resting comfortably Review of Systems Negative except as per above OBJECTIVE Vitals: Temp: [36.6 ??C (97.8 ??F)-37.1 ??C (98.7 ??F)] 36.7 ??C (98 ??F) Pulse: [93-106] 95 Resp: [16-18] 18 BP: (124-139)/(79-87) 136/79 FHR: reactive NST x2 [place]: no regular contractions Physical Exam General: No acute distress. Lungs: Non-labored. Abdomen: Deferred Extremities: Warm and well-perfused. No bilateral lower extremity calf tenderness. Trace non pitting lower extremity edema Pelvic: Deferred. Neurologic: Deferred Lab Review: Recent Labs Lab Units 09/09/24 0624 09/06/24 0431 WBC K/cumm 8.6 10.3* HEMOGLOBIN g/dL 10.9* 11.7* HEMATOCRIT % 33.1* 34.5* PLATELETS K/cumm 239 249 Recent Labs Lab Units 09/09/24 0624 09/06/24 0431 SODIUM mmol/L 141 138 POTASSIUM PLASMA mmol/L 3.8 3.6 CHLORIDE mmol/L 108 105 CO2 mmol/L 22 24 ANIONGAP mmol/L 11 9 GLUCOSE mg/dL 70 62* BUN SERUM mg/dL 8 7 CREATININE mg/dL 0.75 0.63 CALCIUM mg/dL 8.9 9.3 ALBUMIN g/dL 3.2* 3.2* ALK PHOS Units/L 117 118 ALT Units/L 22 23 AST Units/L 23 22 BILIRUBIN TOTAL mg/dL <0.2 0.3 ASSESSMENT/PLAN 29 y.o. at 32w6d a/f preeclampsia with severe features #PreE w/SF - Dx based on newly elevated blood pressures requiring IV meds prior to transfer - Admission labs CBC Hgb 11.4 Plt 278 /CMP Cr 0.56 AST 21 ALT 19/UPC 0.122 - Home regimen: None - 24 hr spotting: none - s/p Mag (07/29) - APLS: Lupus AC, Beta2 glycoprotein IgM/IgG, cardiolipin IgG.IgM negative 08/04 Plan: - Nifedipine XL 120 (^09/02), labetalol 200mg TID (09/06) - q72h CBC/CMP, T&S - del by 34 weeks, 09/19 IOL @ 0530 #sinus tachycardia, intermittent #suspected reflex tachycardia from nifedipine - 08/04 episode of tachycardia to 130-140s - EKG with sinus tachycardia x2 - asymptomatic, negative exam - 08/05 neg RVP - 08/05 Ddimer [address] PE negative (obtained per YEARS criteria) - Thyroid studies WNL #Chronic headaches - Hx SHIPLEY inside and outside of , previously on nortriptyline prior to - Presenting headache feels like prior episodes - Intermittent mild headache responsive to APAP and reglan - takes nortriptyline outside of , discussed restarting if persistent headache and acceptable safety profile in - headaches improved with ear ache treatment as separate problem - If headaches resume, consider magnesium/riboflavin #ear ache/fullness, improving - exam 08/19 with no e/o infection, mild erythema without bulging or purulence behind tympanic membrane - repeat exam 08/28 same as above - improving with flonase spray, mucinex, debrox drops - if does not improve, repeat ear exam and consider antibiotics #Aortic dilation of Fetus B - 07/27 Fetus A: Ascending/isthmus of aorta is mildly enlarged today on imaging. Aortic valve size measures within normal limits and peak systolic velocity measurements are within normal limits. Difficult to assess if aortic valve is bi or tri-leaflet. - echo Twin A 08/03: WNL - echo Twin B 08/03: mildly dilated ascending aorta (0.75cm) (same as previous scan but twins moved positions) - s/p cardiology consult - plan for echo of twin B prior to discharge #lateral ventriculomegaly of twin B fUS 08/09: Twin A: vertex, normal MVP, Twin B: vertex, normal MVP, mild left sided ventriculomegaly, right difficult to visualize. - s/p NICU consult 08/10 #Depression/ Anxiety - Previously on SSRI, stable mood this with no meds #MO -BMI 47 #FWB: #Shay TIUP - BSUS Vertex/Vertex - Genetic screening: LR NIPT, neg carrier screening - Anatomy US: Shay Twins, no evidence of TAPS or TTTS - fUS 08/24: vert/vert; Twin 2 now presenting larger twin, EFW 1784g (79ile); Twin 1 nl mo di screen, EFW 1348g (11ile). Discordance 25% - fUS 09/08: Twin 1 Vertex, DVP 3.3, normal bladder, normal UA dopplers, MCA 1.01 MOM, Twin 2 Vertex (presenting), DVP 5.4, normal bladder, normal UA dopplers, MCA 1.11 MoM - BMZ^07/30 @2330 - Mg stopped 07/29 - PCN deferred - S/p peds consult 08/10 - MONITORING PLAN: dNST - Ultrasound: growth due 09/18 (prior to deliver), Shay screen n/a #MWB #VZV equivocal #Rh negative - PNL: Rh Neg/Ab Neg/HIV NR/Rub Imm/RPR NR/HepB NR/GC/CT Not obtained/VZV Equiv - 1 hr GTT early 82 - 1hr GTT 106 - 3T HIV /RPR NR/NR - s/p flu vax 07/12, Tdap 08/09, RSV 09/05 - RSV received (09/05) - Rhogam 08/01 - GBS neg 09/03 - MOD: TBD, IOL 09/19 @ 0530 - MOF: breast - MOC: nexplanon - AC: BID ppx lovenox Anastasia Plaza MD 09/11/24 Cosigned by Sara Eng MD at 09/11/2024 9:48 AM GAS APPLIANCE REPAIRER APPLIANCE REPAIRER APPLIANCE REPAIRER Associated attestation - Sara Eng MD - 09/11/2024 9:48 AM GAS APPLIANCE REPAIRER I have seen and examined the patient on 09/11/24. I agree with the findings and plan of care as documented in the resident's/fellow's note. Continue expectant management of preeclampsia with severe features. Sara Eng MD 09/10/2024 - 32w5d - Anastasia Sheppard MD Antepartum Progress Note Gestational Age: 32w5d Admission Date: 07/29/2024 Length of stay: 43 Admission Diagnosis: preeclampsia with severe features otherwise affected by: Shay twins, Twin B with aortic root dilation and lateral ventriculomegaly, chronic headaches, Rh neg, dep/anxiety INTERVAL EVENTS - NAEON - BPs normotensive SUBJECTIVE - good movement x2, no LOF, VB, CTX - Denies SHIPLEY, vision changes, SOB, chest pain, RUQ pain, new swelling changes. Review of Systems Negative except as per above OBJECTIVE Vitals: Temp: [36.5 ??C (97.7 ??F)-36.8 ??C (98.3 ??F)] 36.8 ??C (98.3 ??F) Pulse: [87-107] 100 Resp: [16-20] 16 BP: (124-134)/(78-86) 125/81 FHR: reactive NST x2 [place]: no regular contractions Physical Exam General: No acute distress. Lungs: Non-labored. Abdomen: Deferred Extremities: Warm and well-perfused. No bilateral lower extremity calf tenderness. Trace non pitting lower extremity edema Pelvic: Deferred. Neurologic: Deferred Lab Review: Recent Labs Lab Units 09/09/24 0624 09/06/24 0431 WBC K/cumm 8.6 10.3* HEMOGLOBIN g/dL 10.9* 11.7* HEMATOCRIT % 33.1* 34.5* PLATELETS K/cumm 239 249 Recent Labs Lab Units 09/09/24 0624 09/06/24 0431 SODIUM mmol/L 141 138 POTASSIUM PLASMA mmol/L 3.8 3.6 CHLORIDE mmol/L 108 105 CO2 mmol/L 22 24 ANIONGAP mmol/L 11 9 GLUCOSE mg/dL 70 62* BUN SERUM mg/dL 8 7 CREATININE mg/dL 0.75 0.63 CALCIUM mg/dL 8.9 9.3 ALBUMIN g/dL 3.2* 3.2* ALK PHOS Units/L 117 118 ALT Units/L 22 23 AST Units/L 23 22 BILIRUBIN TOTAL mg/dL <0.2 0.3 ASSESSMENT/PLAN 29 y.o. at 32w5d a/f preeclampsia with severe features #PreE w/SF - Dx based on newly elevated blood pressures requiring IV meds prior to transfer - presented to OSH with sustained severe range BP requiring L20 - Given 4g Mg bolus prior to transfer - BPs normotensive to mild range on admission - Admission labs CBC Hgb 11.4 Plt 278 /CMP Cr 0.56 AST 21 ALT 19/UPC 0.122 - Home regimen: None - 24 hr spotting: none - s/p Mag (stopped 07/29) due to stability - APLS: Lupus AC, Beta2 glycoprotein IgM/IgG, cardiolipin IgG.IgM negative 08/04 Plan: - Nifedipine XL 120 (^09/02), labetalol 200mg TID (09/06) - q72h CBC/CMP, T&S - del by 34 weeks, 09/19 IOL @ 0530 #sinus tachycardia, intermittent #suspected reflex tachycardia from nifedipine - 08/04 episode of tachycardia to 130-140s - EKG with sinus tachycardia x2 - asymptomatic, negative exam - 08/05 neg RVP - 08/05 [address] PE negative (obtained per YEARS criteria) - Thyroid studies WNL #Chronic headaches - Hx SHIPLEY inside and outside of , previously on nortriptyline prior to - Presenting headache feels like prior episodes - Intermittent mild headache responsive to APAP and reglan - takes nortriptyline outside of , discussed restarting if persistent headache and acceptable safety profile in - headaches improved with ear ache treatment as separate problem - If headaches resume, consider magnesium/riboflavin #ear ache/fullness, improving - exam 08/19 with no e/o infection, mild erythema without bulging or purulence behind tympanic membrane - repeat exam 08/28 same as above - improving with flonase spray, mucinex, debrox drops - if does not improve, repeat ear exam and consider antibiotics #Aortic dilation of Fetus B - 07/27 Fetus A: Ascending/isthmus of aorta is mildly enlarged today on imaging. Aortic valve size measures within normal limits and peak systolic velocity measurements are within normal limits. Difficult to assess if aortic valve is bi or tri-leaflet. - echo Twin A 08/03: WNL - echo Twin B 08/03: mildly dilated ascending aorta (0.75cm) (same as previous scan but twins moved positions) - s/p cardiology consult - plan for echo of twin B prior to discharge #lateral ventriculomegaly of twin B fUS 08/09: Twin A: vertex, normal MVP, Twin B: vertex, normal MVP, mild left sided ventriculomegaly, right difficult to visualize. - s/p NICU consult 08/10 #Depression/ Anxiety - Previously on SSRI, stable mood this with no meds #MO -BMI 47 #FWB: #Shay TIUP - BSUS Vertex/Vertex - Genetic screening: LR NIPT, neg carrier screening - Anatomy US: Shay Twins, no evidence of TAPS or TTTS - fUS 08/24: vert/vert; Twin 2 now presenting larger twin, EFW 1784g (79ile); Twin 1 nl mo di screen, EFW 1348g (11ile). Discordance 25% - fUS 09/08: Twin 1 Vertex, DVP 3.3, normal bladder, normal UA dopplers, MCA 1.01 MOM, Twin 2 Vertex (presenting), DVP 5.4, normal bladder, normal UA dopplers, MCA 1.11 MoM - BMZ^07/30 @2330 - Mg stopped 07/29 - PCN deferred - S/p peds consult 08/10 - MONITORING PLAN: dNST - Ultrasound: growth due 09/18 (prior to deliver), Shay screen n/a #MWB #VZV equivocal #Rh negative - PNL: Rh Neg/Ab Neg/HIV NR/Rub Imm/RPR NR/HepB NR/GC/CT Not obtained/VZV Equiv - 1 hr GTT early 82 - 1hr GTT 106 - 3T HIV /RPR NR/NR - s/p flu vax 07/12, Tdap 08/09, RSV 09/05 - RSV received (09/05) - Rhogam 08/01 - GBS neg 09/03 - MOD: TBD, IOL 09/19 @ 0530 - MOF: breast - MOC: nexplanon - AC: BID ppx lovenox Anastasia Plaza MD 09/10/24 Cosigned by Nini Cortez MD at 09/10/2024 3:14 PM GAS APPLIANCE REPAIRER APPLIANCE REPAIRER APPLIANCE REPAIRER Associated attestation - Nini Cortez MD - 09/10/2024 3:14 PM GAS APPLIANCE REPAIRER MFM Attending Attestation I have seen and examined the patient, Suki Leon, on 09/10/2024 and I am in agreement with the plan as documented in the resident/fellow/CARLI's note. Doing well this AM. Continue inpatient management. Nini Cortez MD 09/10/2024 09/09/2024 - 32w4d - Anastasia Sheppard MD Antepartum Progress Note Gestational Age: 32w4d Admission Date: 07/29/2024 Length of stay: 42 Admission Diagnosis: preeclampsia with severe features otherwise affected by: Shay twins, Twin B with aortic root dilation and lateral ventriculomegaly, chronic headaches, Rh neg, dep/anxiety INTERVAL EVENTS - NAEON - BPs normotensive - fUS yesterday for Shay screen, no ultrasonographic finding of TTTS/TAPS SUBJECTIVE - good movement x2, no LOF, VB, CTX - Denies SHIPLEY, vision changes, SOB, chest pain, RUQ pain, new swelling changes. Review of Systems Negative except as per above OBJECTIVE Vitals: Temp: [36.6 ??C (97.9 ??F)-36.9 ??C (98.4 ??F)] 36.7 ??C (98 ??F) Pulse: [92-102] 92 Resp: [16-18] 16 BP: (121-138)/(72-87) 130/76 FHR: reactive NST x2 [place]: no regular contractions Physical Exam General: No acute distress. Lungs: Non-labored. Abdomen: Deferred Extremities: Warm and well-perfused. No bilateral lower extremity calf tenderness. Trace non pitting lower extremity edema Pelvic: Deferred. Neurologic: Deferred Lab Review: Recent Labs Lab Units 09/09/24 0624 09/06/24 0431 09/03/24 0526 WBC K/cumm 8.6 10.3* 12.1* HEMOGLOBIN g/dL 10.9* 11.7* 11.7* HEMATOCRIT % 33.1* 34.5* 34.0* PLATELETS K/cumm 239 249 273 Recent Labs Lab Units 09/06/24 0431 09/03/24 0526 SODIUM mmol/L 138 139 POTASSIUM PLASMA mmol/L 3.6 4.0 CHLORIDE mmol/L 105 105 CO2 mmol/L 24 20* ANIONGAP mmol/L 9 14 GLUCOSE mg/dL 62* 68* BUN SERUM mg/dL 7 8 CREATININE mg/dL 0.63 0.55* CALCIUM mg/dL 9.3 9.3 ALBUMIN g/dL 3.2* 3.3* ALK PHOS Units/L 118 111 ALT Units/L 23 22 AST Units/L 22 24 BILIRUBIN TOTAL mg/dL 0.3 0.3 ASSESSMENT/PLAN 29 y.o. at 32w4d a/f preeclampsia with severe features #PreE w/SF - Dx based on newly elevated blood pressures requiring IV meds prior to transfer - presented to OSH with sustained severe range BP requiring L20 - Given 4g Mg bolus prior to transfer - BPs normotensive to mild range on admission - Admission labs CBC Hgb 11.4 Plt 278 /CMP Cr 0.56 AST 21 ALT 19/UPC 0.122 - Home regimen: None - 24 hr spotting: none - s/p Mag (stopped 07/29) due to stability - APLS: Lupus AC, Beta2 glycoprotein IgM/IgG, cardiolipin IgG.IgM negative 08/04 Plan: - Nifedipine XL 120 (^09/02), labetalol 200mg TID (09/06) - q72h CBC/CMP, T&S - del by 34 weeks, 09/19 IOL @ 0530 #sinus tachycardia, intermittent #suspected reflex tachycardia from nifedipine - 08/04 episode of tachycardia to 130-140s - EKG with sinus tachycardia x2 - asymptomatic, negative exam - 08/05 neg RVP - 08/[address] PE negative (obtained per YEARS criteria) - suspect recent activity plus possible reflex tachycardia from NXL - if persistent, change NXL to labetalol 200 TID and uptitrate for BP control - Thyroid studies WNL #Chronic headaches - Hx SHIPLEY inside and outside of , previously on nortriptyline prior to - Presenting headache feels like prior episodes - Intermittent mild headache responsive to APAP and reglan - takes nortriptyline outside of , discussed restarting if persistent headache and acceptable safety profile in - headaches improved with ear ache treatment as separate problem - If headaches resume, consider magnesium/riboflavin #ear ache/fullness, improving - exam 08/19 with no e/o infection, mild erythema without bulging or purulence behind tympanic membrane - repeat exam 08/28 same as above - flonase spray, mucinex, debrox drops - if does not improve, repeat ear exam and consider antibiotics #Aortic dilation of Fetus B - 07/27 Fetus A: Ascending/isthmus of aorta is mildly enlarged today on imaging. Aortic valve size measures within normal limits and peak systolic velocity measurements are within normal limits. Difficult to assess if aortic valve is bi or tri-leaflet. - echo Twin A 08/03: WNL - echo Twin B 08/03: mildly dilated ascending aorta (0.75cm) (same as previous scan but twins moved positions) - s/p cardiology consult - plan for echo of twin B prior to discharge #lateral ventriculomegaly of twin B fUS 08/09: Twin A: vertex, normal MVP, Twin B: vertex, normal MVP, mild left sided ventriculomegaly, right difficult to visualize. - s/p NICU consult 08/10 #Depression/ Anxiety - Previously on SSRI, stable mood this with no meds #MO -BMI 47 #FWB: #Shay TIUP - BSUS Vertex/Vertex - Genetic screening: LR NIPT, neg carrier screening - Anatomy US: Shay Twins, no evidence of TAPS or TTTS - fUS 08/24: vert/vert; Twin 2 now presenting larger twin, EFW 1784g (79ile); Twin 1 nl mo di screen, EFW 1348g (11ile). Discordance 25% - fUS 09/08: Twin 1 Vertex, DVP 3.3, normal bladder, normal UA dopplers, MCA 1.01 MOM, Twin 2 Vertex (presenting), DVP 5.4, normal bladder, normal UA dopplers, MCA 1.11 MoM - BMZ^07/30 @2330 - Mg stopped 07/29 - PCN deferred - S/p peds consult 08/10 - MONITORING PLAN: dNST - Shay screeening ultrasound: growth due 09/21, Shay screen 09/22 #MWB #VZV equivocal #Rh negative - PNL: Rh Neg/Ab Neg/HIV NR/Rub Imm/RPR NR/HepB NR/GC/CT Not obtained/VZV Equiv - 1 hr GTT early 82 - 1hr GTT 106 - 3T HIV /RPR NR/NR - s/p flu vax 07/12, Tdap 08/09, RSV 09/05 - RSV received (09/05) - Rhogam 08/01 - GBS neg 09/03 - MOD: TBD, IOL 09/19 @ 0530 - MOF: breast - MOC: nexplanon - AC: BID ppx lovenox Anastasia Plaza MD 09/09/24 Cosigned by Sara Eng MD at 09/09/2024 12:11 PM GAS APPLIANCE REPAIRER APPLIANCE REPAIRER APPLIANCE REPAIRER Associated attestation - Sara Eng MD - 09/09/2024 12:11 PM GAS APPLIANCE REPAIRER I have seen and examined the patient on 09/09/24. I agree with the findings and plan of care as documented in the resident's/fellow's note. Sara Eng MD. 09/08/2024 - 32w3d - Carola Espinal Chaplain Carola Murphy [facility] Spiritual Care Triage: [phone] 09/08/24 1100 Time Spent Start Time 1120 Stop Time 1140 Time Calculation (min) 20 min Clinical Encounter Type Visited With Patient Response Type Routine visit;Continuing visit Routine Visit Follow-up Reason for visit Support Outcomes and Progress Demonstrating care and respect Achieved Establish rapport and connectedness Achieved Interventions Interventions Offer emotional support;Offer spiritual/alevism support APPLIANCE REPAIRER 09/08/2024 - 32w3d - Anastasia Sheppard MD Antepartum Progress Note Gestational Age: 32w3d Admission Date: 07/29/2024 Length of stay: 41 Admission Diagnosis: preeclampsia with severe features otherwise affected by: Shay twins, Twin B with aortic root dilation and lateral ventriculomegaly, chronic headaches, Rh neg, dep/anxiety INTERVAL EVENTS - NAEON - BPs normotensive - Dad and Aunt came to visit yesterday, went to the [employer] shop and cafeteria SUBJECTIVE - good movement x2, no LOF, VB, CTX - Denies SHIPLEY, vision changes, SOB, chest pain, RUQ pain, new swelling changes. Review of Systems Negative except as per above OBJECTIVE Vitals: Temp: [36.6 ??C (97.9 ??F)-37 ??C (98.6 ??F)] 36.6 ??C (97.9 ??F) Pulse: [87-113] 95 Resp: [16-18] 18 BP: (119-138)/(61-87) 138/87 FHR: reactive NST x2 [place]: no regular contractions Physical Exam General: No acute distress. Lungs: Non-labored. Abdomen: Deferred Extremities: Warm and well-perfused. No bilateral lower extremity calf tenderness. Trace non pitting lower extremity edema Pelvic: Deferred. Neurologic: Deferred Lab Review: Recent Labs Lab Units 09/06/24 0431 09/03/24 0526 WBC K/cumm 10.3* 12.1* HEMOGLOBIN g/dL 11.7* 11.7* HEMATOCRIT % 34.5* 34.0* PLATELETS K/cumm 249 273 Recent Labs Lab Units 09/06/24 0431 09/03/24 0526 SODIUM mmol/L 138 139 POTASSIUM PLASMA mmol/L 3.6 4.0 CHLORIDE mmol/L 105 105 CO2 mmol/L 24 20* ANIONGAP mmol/L 9 14 GLUCOSE mg/dL 62* 68* BUN SERUM mg/dL 7 8 CREATININE mg/dL 0.63 0.55* CALCIUM mg/dL 9.3 9.3 ALBUMIN g/dL 3.2* 3.3* ALK PHOS Units/L 118 111 ALT Units/L 23 22 AST Units/L 22 24 BILIRUBIN TOTAL mg/dL 0.3 0.3 ASSESSMENT/PLAN 29 y.o. at 32w3d a/f preeclampsia with severe features #PreE w/SF - Dx based on newly elevated blood pressures requiring IV meds prior to transfer - presented to OSH with sustained severe range BP requiring L20 - Given 4g Mg bolus prior to transfer - BPs normotensive to mild range on admission - Admission labs CBC Hgb 11.4 Plt 278 /CMP Cr 0.56 AST 21 ALT 19/UPC 0.122 - Home regimen: None - 24 hr spotting: none - s/p Mag (stopped 07/29) due to stability - APLS: Lupus AC, Beta2 glycoprotein IgM/IgG, cardiolipin IgG.IgM negative 08/04 Plan: - Nifedipine XL 120 (^09/02), labetalol 200mg TID (09/06) - q72h CBC/CMP, T&S - del by 34 weeks, 09/19 IOL @0530 #sinus tachycardia, intermittent #suspected reflex tachycardia from nifedipine - 08/04 episode of tachycardia to 130-140s - EKG with sinus tachycardia x2 - asymptomatic, negative exam - 08/05 neg RVP - 08/05 [address] PE negative (obtained per YEARS criteria) - Thyroid studies WNL #Chronic headaches - Hx SHIPLEY inside and outside of , previously on nortriptyline prior to - Presenting headache feels like prior episodes - Intermittent mild headache responsive to APAP and reglan - takes nortriptyline outside of , discussed restarting if persistent headache and acceptable safety profile in - headaches improved with ear ache treatment as separate problem - If headaches resume, consider magnesium/riboflavin #ear ache/fullness, improving - exam 08/19 with no e/o infection, mild erythema without bulging or purulence behind tympanic membrane - repeat exam 08/28 same as above - Improving with flonase spray, mucinex, debrox drops - Repeat ear exam PRN and consider antibiotics #Aortic dilation of Fetus B - 07/27 Fetus A: Ascending/isthmus of aorta is mildly enlarged today on imaging. Aortic valve size measures within normal limits and peak systolic velocity measurements are within normal limits. Difficult to assess if aortic valve is bi or tri-leaflet. - echo Twin A 08/03: WNL - echo Twin B 08/03: mildly dilated ascending aorta (0.75cm) (same as previous scan but twins moved positions) - s/p cardiology consult - plan for echo of twin B prior to discharge #lateral ventriculomegaly of twin B fUS 08/09: Twin A: vertex, normal MVP, Twin B: vertex, normal MVP, mild left sided ventriculomegaly, right difficult to visualize. - s/p NICU consult 08/10 #Depression/ Anxiety - Previously on SSRI, stable mood this with no meds #MO -BMI 47 #FWB: #Shay TIUP - BSUS Vertex/Vertex - Genetic screening: LR NIPT, neg carrier screening - Anatomy US: Shay Twins, no evidence of TAPS or TTTS - fUS 07/27: Twin 1 1348g (11%ile), Twin 2 1784g (79%ile), Discordant 25 %. AGA of both twins. Lateral ventriculomegaly twin B, for formal anatomy US with us - fUS 08/09: Twin A: vertex, normal MVP, Twin B: vertex, normal MVP, mild left sided ventriculomegaly. No evidence of TTTS - fUS 08/16: A transverse, normal MVP, present bladder; twin B vertex, normal MVP, normal bladder. UA MCA dopplers WNL no e/o TTTS/TAPS - fUS 08/24: vert/vert; Twin 2 now presenting larger twin, Mo di screen nl, EFW 1784g (79ile); Twin 1 nl mo di screen, EFW 1348g (11ile). Discordance 25% - BMZ^07/30 @2330 - Mg stopped 07/29 - PCN deferred - S/p peds consult 08/10 - MONITORING PLAN: dNST - Shay screeening ultrasound: growth due 09/21, Shay screen 09/08 #MWB #VZV equivocal #Rh negative - PNL: Rh Neg/Ab Neg/HIV NR/Rub Imm/RPR NR/HepB NR/GC/CT Not obtained/VZV Equiv - 1 hr GTT early 82 - 1hr GTT 106 - 3T HIV /RPR NR/NR - s/p flu vax 07/12, Tdap 08/09, RSV 09/05 - RSV received (09/05) - Rhogam 08/01 - GBS neg 11/30 - MOD: TBD, IOL 09/19 @0530 - MOF: breast - MOC: nexplanon - AC: BID ppx lovenox Anastasia Plaza MD 09/08/24 Cosigned by Sara Eng MD at 09/08/2024 10:42 AM GAS APPLIANCE REPAIRER APPLIANCE REPAIRER APPLIANCE REPAIRER APPLIANCE REPAIRER Associated attestation - Sara Eng MD - 09/08/2024 10:42 AM GAS APPLIANCE REPAIRER I have seen and examined the patient on 09/08/24. I agree with the findings and plan of care as documented in the resident's/fellow's note. Sara Eng MD . 09/07/2024 - 32w2d - Marge Salguero RD Nutrition Screen Note Pt. Screened for nutritional assessment secondary to LOS Past Medical History: Diagnosis Date Anxiety GERD (gastroesophageal reflux disease) IBS (irritable bowel syndrome) Migraine headache Obesity Past Surgical History: Procedure Laterality Date CHOLECYSTECTOMY Anthropometrics Weight: 128.8 kg (284 lb) Admission Weight : 128.8 kg Weight Change: 0.00 kg (0.00 lbs) IBW/kg (Calculated) : 56.7 kg Height: 165.1 cm (5' 5 ) Weight in (lb) to have BMI = 25: 149.9 BMI (Calculated): 47.3 Adult Malnutrition Scoring Tool (MST) What diet do you follow at home?: regular Have You Recently Lost Weight Without Trying?: No Have you been eating poorly because of a decreased appetite?: Yes Malnutrition Screening Tool (MST) Score: 1 Dietary Orders (From admission, onward) Start Ordered 07/29/24 1220 Adult Diet Regular Diet effective now Question: ([facility]) Diet type Answer: Regular 07/29/24 1220 Assessment / Impression: Met with patient at bedside. She reported good appetite and PO intake. Recommend weekly weights. RD will continue to monitor. Marge Castro MS, RD, CNSC, LD Cell APPLIANCE REPAIRER 09/07/2024 - 32w2d - Anastasia Sheppard MD Antepartum Progress Note Gestational Age: 32w2d Admission Date: 07/29/2024 Length of stay: 40 Admission Diagnosis: preeclampsia with severe features otherwise affected by: Shay twins, Twin B with aortic root dilation and lateral ventriculomegaly, chronic headaches, Rh neg, dep/anxiety INTERVAL EVENTS - NAEON - Unsustained SR BP and multiple MR, labetalol 200mg TID added to antihypertensive regimen - C/f LOF while ambulation, ROM ruled out on exam - Prolonged monitoring yesterday given initially non-reactive tracing for Twin A SUBJECTIVE - good movement x2, no LOF, VB, CTX - Denies SHIPLEY, vision changes, SOB, chest pain, RUQ pain, new swelling changes. Review of Systems Negative except as per above OBJECTIVE Vitals: Temp: [36.7 ??C (98.1 ??F)-37.1 ??C (98.7 ??F)] 37.1 ??C (98.7 ??F) Pulse: [96-126] 96 Resp: [18] 18 BP: (117-173)/(71-96) 120/71 FHR: reactive NST x2 [place]: no regular contractions Physical Exam General: No acute distress. Lungs: Non-labored. Abdomen: Deferred Extremities: Warm and well-perfused. No bilateral lower extremity calf tenderness. Trace non pitting lower extremity edema Pelvic: Deferred. Neurologic: Deferred Lab Review: Recent Labs Lab Units 09/06/24 0431 09/03/24 0526 WBC K/cumm 10.3* 12.1* HEMOGLOBIN g/dL 11.7* 11.7* HEMATOCRIT % 34.5* 34.0* PLATELETS K/cumm 249 273 Recent Labs Lab Units 09/06/24 0431 09/03/24 0526 SODIUM mmol/L 138 139 POTASSIUM PLASMA mmol/L 3.6 4.0 CHLORIDE mmol/L 105 105 CO2 mmol/L 24 20* ANIONGAP mmol/L 9 14 GLUCOSE mg/dL 62* 68* BUN SERUM mg/dL 7 8 CREATININE mg/dL 0.63 0.55* CALCIUM mg/dL 9.3 9.3 ALBUMIN g/dL 3.2* 3.3* ALK PHOS Units/L 118 111 ALT Units/L 23 22 AST Units/L 22 24 BILIRUBIN TOTAL mg/dL 0.3 0.3 ASSESSMENT/PLAN 29 y.o. at 32w2d a/f preeclampsia with severe features #PreE w/SF - Dx based on newly elevated blood pressures requiring IV meds prior to transfer - presented to OSH with sustained severe range BP requiring L20 - Given 4g Mg bolus prior to transfer - BPs normotensive to mild range on admission - Admission labs CBC Hgb 11.4 Plt 278 /CMP Cr 0.56 AST 21 ALT 19/UPC 0.122 - Home regimen: None - 24 hr spotting: none - s/p Mag (stopped 07/29) due to stability - APLS: Lupus AC, Beta2 glycoprotein IgM/IgG, cardiolipin IgG.IgM negative 08/04 Plan: - Nifedipine XL 120 (^09/02), labetalol 200mg TID (09/06) - q72h CBC/CMP, T&S - del by 34 weeks, 09/19 IOL @0530 #sinus tachycardia, intermittent #suspected reflex tachycardia from nifedipine - 08/04 episode of tachycardia to 130-140s - EKG with sinus tachycardia x2 - asymptomatic, negative exam - 08/05 neg RVP - 08/05 Ddimer [address] PE negative (obtained per YEARS criteria) - Thyroid studies WNL #Chronic headaches - Hx SHIPLEY inside and outside of , previously on nortriptyline prior to - Presenting headache feels like prior episodes - Intermittent mild headache responsive to APAP and reglan - takes nortriptyline outside of , discussed restarting if persistent headache and acceptable safety profile in - headaches improved with ear ache treatment as separate problem - If headaches resume, consider magnesium/riboflavin #ear ache/fullness, improving - exam 08/19 with no e/o infection, mild erythema without bulging or purulence behind tympanic membrane - repeat exam 08/28 same as above - Improving with flonase spray, mucinex, debrox drops - Repeat ear exam PRN and consider antibiotics #Aortic dilation of Fetus B - 07/27 Fetus A: Ascending/isthmus of aorta is mildly enlarged today on imaging. Aortic valve size measures within normal limits and peak systolic velocity measurements are within normal limits. Difficult to assess if aortic valve is bi or tri-leaflet. - echo Twin A 08/03: WNL - echo Twin B 08/03: mildly dilated ascending aorta (0.75cm) (same as previous scan but twins moved positions) - s/p cardiology consult - plan for echo of twin B prior to discharge #lateral ventriculomegaly of twin B fUS 08/09: Twin A: vertex, normal MVP, Twin B: vertex, normal MVP, mild left sided ventriculomegaly, right difficult to visualize. - s/p NICU consult 08/10 #Depression/ Anxiety - Previously on SSRI, stable mood this with no meds #MO -BMI 47 #FWB: #Shay TIUP - BSUS Vertex/Vertex - Genetic screening: LR NIPT, neg carrier screening - Anatomy US: Shay Twins, no evidence of TAPS or TTTS - fUS 07/27: Twin 1 1348g (11%ile), Twin 2 1784g (79%ile), Discordant 25 %. AGA of both twins. Lateral ventriculomegaly twin B, for formal anatomy US with us - fUS 08/09: Twin A: vertex, normal MVP, Twin B: vertex, normal MVP, mild left sided ventriculomegaly. No evidence of TTTS - fUS 08/16: A transverse, normal MVP, present bladder; twin B vertex, normal MVP, normal bladder. UA MCA dopplers WNL no e/o TTTS/TAPS - fUS 08/24: vert/vert; Twin 2 now presenting larger twin, Mo di screen nl, EFW 1784g (79ile); Twin 1 nl mo di screen, EFW 1348g (11ile). Discordance 25% - BMZ^07/30 @2330 - Mg stopped 07/29 - PCN deferred - S/p peds consult 08/10 - MONITORING PLAN: dNST - Shay screeening ultrasound: growth due 09/21, Shay screen 09/08 #MWB #VZV equivocal #Rh negative - PNL: Rh Neg/Ab Neg/HIV NR/Rub Imm/RPR NR/HepB NR/GC/CT Not obtained/VZV Equiv - 1 hr GTT early 82 - 1hr GTT 106 - 3T HIV /RPR NR/NR - s/p flu vax 07/12, Tdap 08/09, RSV 09/05 - RSV received (09/05) - Rhogam 08/01 - GBS neg 08/01, repeat 09/03 pending - MOD: TBD, IOL 09/19 @ 0530 - MOF: breast - MOC: nexplanon - AC: BID ppx lovenox Anastasia Plaza MD 09/07/24 Cosigned by Sara Eng MD at 09/07/2024 9:34 AM GAS APPLIANCE REPAIRER APPLIANCE REPAIRER APPLIANCE REPAIRER Associated attestation - Sara Eng MD - 09/07/2024 9:34 AM GAS APPLIANCE REPAIRER I have seen and examined the patient on 09/07/24. I agree with the findings and plan of care as documented in the resident's/fellow's note. Adding unisom for sleep. Sara Eng MD 09/07/2024 - 32w2d - Leeanne Quinonez MD R2 update Patient called out for possible leakage on ambulation to the bathroom. No gush of fluid. No continuous leakage. Vitals: 09/06/24 1334 BP: 126/79 Pulse: 122 Resp: 18 Temp: 36.7 ??C (98.1 ??F) SpO2: 93% SSE: no pooling, physiologic discharge, pH 4.5, no ferning Plan: - No ROM - Resume monitoring Rey Quinonez MD Obstetrics and Gynecology, PGY-2 APPLIANCE REPAIRER 09/06/2024 - 32w1d - Anastasia Sheppard MD Antepartum Progress Note Gestational Age: 32w1d Admission Date: 07/29/2024 Length of stay: 39 Admission Diagnosis: preeclampsia with severe features otherwise affected by: Shay twins, Twin B with aortic root dilation and lateral ventriculomegaly, chronic headaches, Rh neg, dep/anxiety INTERVAL EVENTS - NAEON - < 50% mild range BPs SUBJECTIVE - good movement x2, no LOF, VB, CTX - Denies SHIPLEY, vision changes, SOB, chest pain, RUQ pain, new swelling changes. Review of Systems Negative except as per above OBJECTIVE Vitals: Temp: [36.5 ??C (97.7 ??F)-36.7 ??C (98.1 ??F)] 36.7 ??C (98 ??F) Pulse: [91-118] 96 Resp: [14-18] 18 BP: (125-147)/(81-95) 128/87 FHR: reactive NST x2 [place]: no regular contractions Physical Exam General: No acute distress. Lungs: Non-labored. Abdomen: Deferred Extremities: Warm and well-perfused. No bilateral lower extremity calf tenderness. Trace non pitting lower extremity edema Pelvic: Deferred. Neurologic: Deferred Lab Review: Recent Labs Lab Units 09/06/24 0431 09/03/24 0526 08/31/24 0620 WBC K/cumm 10.3* 12.1* 10.5* HEMOGLOBIN g/dL 11.7* 11.7* 11.5* HEMATOCRIT % 34.5* 34.0* 34.1* PLATELETS K/cumm 249 273 282 Recent Labs Lab Units 09/06/24 0431 09/03/24 0526 08/31/24 0620 SODIUM mmol/L 138 139 137 POTASSIUM PLASMA mmol/L 3.6 4.0 3.7 CHLORIDE mmol/L 105 105 103 CO2 mmol/L 24 20* 22 ANIONGAP mmol/L 9 14 12 GLUCOSE mg/dL 62* 68* 70 BUN SERUM mg/dL 7 8 6 CREATININE mg/dL 0.63 0.55* 0.56* CALCIUM mg/dL 9.3 9.3 9.5 ALBUMIN g/dL 3.2* 3.3* 3.2* ALK PHOS Units/L 118 111 103 ALT Units/L 23 22 28 AST Units/L 22 24 25 BILIRUBIN TOTAL mg/dL 0.3 0.3 0.2 ASSESSMENT/PLAN 29 y.o. at 32w1d a/f preeclampsia with severe features #PreE w/SF - Dx based on newly elevated blood pressures requiring IV meds prior to transfer - presented to OSH with sustained severe range BP requiring L20 - Given 4g Mg bolus prior to transfer - BPs normotensive to mild range on admission - Admission labs CBC Hgb 11.4 Plt 278 /CMP Cr 0.56 AST 21 ALT 19/UPC 0.122 - Home regimen: None - 24 hr spotting: none - s/p Mag (stopped 07/29) due to stability - APLS: Lupus AC, Beta2 glycoprotein IgM/IgG, cardiolipin IgG.IgM negative 08/04 Plan: - Nifedipine XL 120 (^09/02) - q72h CBC/CMP, T&S - del by 34 weeks, 09/19 IOL @ 0530 #sinus tachycardia, intermittent #suspected reflex tachycardia from nifedipine - 08/04 episode of tachycardia to 130-140s - EKG with sinus tachycardia x2 - asymptomatic, negative exam - 08/05 neg RVP - 08/[address] PE negative (obtained per YEARS criteria) - suspect recent activity plus possible reflex tachycardia from NXL - if persistent, change NXL to labetalol 200 TID and uptitrate for BP control - Thyroid studies WNL #Chronic headaches - Hx SHIPLEY inside and outside of , previously on nortriptyline prior to - Presenting headache feels like prior episodes - Intermittent mild headache responsive to APAP and reglan - takes nortriptyline outside of , discussed restarting if persistent headache and acceptable safety profile in - headaches improved with ear ache treatment as separate problem - If headaches resume, consider magnesium/riboflavin #ear ache/fullness, improving - exam 08/19 with no e/o infection, mild erythema without bulging or purulence behind tympanic membrane - repeat exam 08/28 same as above - flonase spray, mucinex, debrox drops - if does not improve, repeat ear exam and consider antibiotics #Aortic dilation of Fetus B - 07/27 Fetus A: Ascending/isthmus of aorta is mildly enlarged today on imaging. Aortic valve size measures within normal limits and peak systolic velocity measurements are within normal limits. Difficult to assess if aortic valve is bi or tri-leaflet. - echo Twin A 08/03: WNL - echo Twin B 08/03: mildly dilated ascending aorta (0.75cm) (same as previous scan but twins moved positions) - s/p cardiology consult - plan for echo of twin B prior to discharge #lateral ventriculomegaly of twin B fUS 08/09: Twin A: vertex, normal MVP, Twin B: vertex, normal MVP, mild left sided ventriculomegaly, right difficult to visualize. - s/p NICU consult 08/10 #Depression/ Anxiety - Previously on SSRI, stable mood this with no meds #MO -BMI 47 #FWB: #Shay TIUP - BSUS Vertex/Vertex - Genetic screening: LR NIPT, neg carrier screening - Anatomy US: Shay Twins, no evidence of TAPS or TTTS - fUS 08/24: vert/vert; Twin 2 now presenting larger twin, Mo di screen nl, EFW 1784g (79%tile); Twin 1 nl mo di screen, EFW 1348g (11%tile). Discordance 25% - BMZ^07/30 @2330 - Mg stopped 07/29 - PCN deferred - S/p peds consult 08/10 - MONITORING PLAN: dNST - Ultrasound: growth due 09/21, Shay screen 09/08 #MWB #VZV equivocal #Rh negative - PNL: Rh Neg/Ab Neg/HIV NR/Rub Imm/RPR NR/HepB NR/GC/CT Not obtained/VZV Equiv - 1 hr GTT early 82 - 1hr GTT 106 - 3T HIV /RPR NR/NR - s/p flu vax 07/12, Tdap 08/09, RSV 09/05 - Rhogam 08/01 - GBS neg 08/01, repeat 09/03 pending - MOD: TBD, IOL 09/19 @ 0530 - MOF: breast - MOC: nexplanon - AC: BID ppx lovenox Anastasia Plaza MD 09/06/24 Cosigned by Sara Eng MD at 09/06/2024 11:17 AM GAS APPLIANCE REPAIRER APPLIANCE REPAIRER APPLIANCE REPAIRER Associated attestation - Sara Eng MD - 09/06/2024 11:17 AM GAS APPLIANCE REPAIRER I have seen and examined the patient on 09/06/24. I agree with the findings and plan of care as documented in the resident's/fellow's note. Continue expectant management of preeclampsia with severe features. Sara Eng MD 09/05/2024 - 32w0d - Millie Pierce LCSW Reason for Admission Pt (Suki Kraft Leon 1995) was admitted on 07/29/2024 for Preeclampsia, unspecified trimester [O14.90]. Pt discussed in DCAM rounds with medical team. Per DCAM rounds, pt remains admitted to the [facility] due to ongoing medical needs. SW to follow for coping, adjustment to diagnosis as needed, and assess for social needs. Pt reports feeling well at this time. Pt requests additional gas cards to assist family with visiting this weekend. SW educates pt about limitations of gas cards moving forward. SW provides two gas cards SW remains available. ARACELIS Tyler, LEO [facility] APPLIANCE REPAIRER 09/05/2024 - 32w0d - Leeanne Quinonez MD Antepartum Progress Note Gestational Age: 32w0d Admission Date: 07/29/2024 Length of stay: 38 Admission Diagnosis: preeclampsia with severe features otherwise affected by: Shay twins, Twin B with aortic root dilation and lateral ventriculomegaly, chronic headaches, Rh neg, dep/anxiety INTERVAL EVENTS - NAEON - < 50% mild range BPs - Reactive and reassuring NST SUBJECTIVE - good movement x2, no LOF, VB, CTX - Denies SHIPLEY, vision changes, SOB, chest pain, RUQ pain, new swelling changes. Review of Systems Negative except as per above OBJECTIVE Vitals: Temp: [36.4 ??C (97.6 ??F)-37.1 ??C (98.7 ??F)] 36.7 ??C (98.1 ??F) Pulse: [90-146] 119 Resp: [16-18] 16 BP: (125-156)/(78-99) 125/86 FHR: reactive NST x2 [place]: no regular contractions Physical Exam General: No acute distress. Lungs: Non-labored. Abdomen: Deferred Extremities: Warm and well-perfused. No bilateral lower extremity calf tenderness. Trace non pitting lower extremity edema Pelvic: Deferred. Neurologic: Deferred Lab Review: Recent Labs Lab Units 09/03/24 0526 08/31/24 0620 WBC K/cumm 12.1* 10.5* HEMOGLOBIN g/dL 11.7* 11.5* HEMATOCRIT % 34.0* 34.1* PLATELETS K/cumm 273 282 Recent Labs Lab Units 09/03/24 0526 08/31/24 0620 SODIUM mmol/L 139 137 POTASSIUM PLASMA mmol/L 4.0 3.7 CHLORIDE mmol/L 105 103 CO2 mmol/L 20* 22 ANIONGAP mmol/L 14 12 GLUCOSE mg/dL 68* 70 BUN SERUM mg/dL 8 6 CREATININE mg/dL 0.55* 0.56* CALCIUM mg/dL 9.3 9.5 ALBUMIN g/dL 3.3* 3.2* ALK PHOS Units/L 111 103 ALT Units/L 22 28 AST Units/L 24 25 BILIRUBIN TOTAL mg/dL 0.3 0.2 ASSESSMENT/PLAN 29 y.o. at 32w0d a/f preeclampsia with severe features #PreE w/SF - Dx based on newly elevated blood pressures requiring IV meds prior to transfer - presented to OSH with sustained severe range BP requiring L20 - Admission labs CBC Hgb 11.4 Plt 278 /CMP Cr 0.56 AST 21 ALT 19/UPC 0.122 - Home regimen: None - 24 hr spotting: none - s/p Mag (stopped 07/29) due to stability - APLS: Lupus AC, Beta2 glycoprotein IgM/IgG, cardiolipin IgG.IgM negative 08/04 Plan: - Nifedipine XL 120 (^09/02) - q72h CBC/CMP, T&S (next 09/06) - del by 34 weeks, 09/19 IOL @ 0530 #sinus tachycardia, intermittent #suspected reflex tachycardia from nifedipine - 08/04 episode of tachycardia to 130-140s - EKG with sinus tachycardia x2 - asymptomatic, negative exam - 08/05 neg RVP - 08/[address] PE negative (obtained per YEARS criteria) - suspect recent activity plus possible reflex tachycardia from NXL - Thyroid studies WNL #Chronic headaches - Hx SHIPLEY inside and outside of , previously on nortriptyline prior to - Presenting headache feels like prior episodes - Intermittent mild headache responsive to APAP and reglan - takes nortriptyline outside of , discussed restarting if persistent headache and acceptable safety profile in - headaches improved with ear ache treatment as separate problem #ear ache/fullness, improving - exam 08/19 with no e/o infection, mild erythema without bulging or purulence behind tympanic membrane - flonase spray, mucinex, debrox drops - symptoms improving #Aortic dilation of Fetus B - 07/27 Fetus A: Ascending/isthmus of aorta is mildly enlarged today on imaging. Aortic valve size measures within normal limits and peak systolic velocity measurements are within normal limits. Difficult to assess if aortic valve is bi or tri-leaflet. - echo Twin A 08/03: WNL - echo Twin B 08/03: mildly dilated ascending aorta (0.75cm) (same as previous scan but twins moved positions) - s/p cardiology consult - plan for echo of twin B prior to discharge #lateral ventriculomegaly of twin B - fUS 08/09: Twin A: vertex, normal MVP, Twin B: vertex, normal MVP, mild left sided ventriculomegaly, right difficult to visualize. - s/p NICU consult 08/10 #Depression/ Anxiety - Previously on SSRI, stable mood this with no meds #MO -BMI 47 #FWB: #Shay TIUP - BSUS Vertex/Vertex - Genetic screening: LR NIPT, neg carrier screening - Anatomy US: Shay Twins, no evidence of TAPS or TTTS - fUS 07/27: Twin 1 1348g (11%ile), Twin 2 1784g (79%ile), Discordant 25 %. AGA of both twins. Lateral ventriculomegaly twin B, for formal anatomy US with us - fUS 08/09: Twin A: vertex, normal MVP, Twin B: vertex, normal MVP, mild left sided ventriculomegaly. No evidence of TTTS - fUS 08/16: A transverse, normal MVP, present bladder; twin B vertex, normal MVP, normal bladder. UA MCA dopplers WNL no e/o TTTS/TAPS - fUS 08/24: vert/vert; Twin 2 now presenting larger twin, Mo di screen nl, EFW 1784g (79ile); Twin 1 nl mo di screen, EFW 1348g (11ile). Discordance 25% - BMZ^07/30 @2330 - Mg stopped 07/29 - PCN deferred - S/p peds consult 08/10 - MONITORING PLAN: dNST - Shay screeening ultrasound: growth due 09/21, TTTS/TAPS screen 09/08 #MWB #VZV equivocal #Rh negative - PNL: Rh Neg/Ab Neg/HIV NR/Rub Imm/RPR NR/HepB NR/GC/CT Not obtained/VZV Equiv - 1 hr GTT early 82 - 1hr GTT 106 - 3T HIV /RPR NR/NR - s/p flu vax 07/12, Tdap 08/09 - RSV ordered (09/05) - Rhogam 08/01 - GBS neg 08/01, repeat 09/03 pending - MOD: TBD, IOL 09/19 @ 0530 - MOF: breast - MOC: nexplanon - AC: BID ppx lovenox Rey Quinonez MD 09/05/24 Cosigned by Sara Eng MD at 09/05/2024 9:05 AM GAS APPLIANCE REPAIRER APPLIANCE REPAIRER APPLIANCE REPAIRER Associated attestation - Sara Eng MD - 09/05/2024 9:05 AM GAS APPLIANCE REPAIRER I have seen and examined the patient on 09/05/24. I agree with the findings and plan of care as documented in the resident's/fellow's note. For RSV Immunization today after counseling. 09/04/2024 - 31w6d - Josefina Lamb MD Antepartum Progress Note Gestational Age: 31w6d Admission Date: 07/29/2024 Length of stay: 37 Admission Diagnosis: preeclampsia with severe features otherwise affected by: Shay twins, Twin B with aortic root dilation and lateral ventriculomegaly, chronic headaches, Rh neg, dep/anxiety INTERVAL EVENTS - NAEON - < 50% mild range BPs - HR 100-120 SUBJECTIVE - good movement x2, no LOF, VB, CTX - Denies SHIPLEY, vision changes, SOB, chest pain, RUQ pain, new swelling changes. Review of Systems Negative except as per above OBJECTIVE Vitals: Temp: [36.5 ??C (97.7 ??F)-36.9 ??C (98.4 ??F)] 36.6 ??C (97.9 ??F) Pulse: [100-117] 117 Resp: [16-18] 16 BP: (127-141)/(78-90) 127/90 FHR: reactive NST x2 [place]: no regular contractions Physical Exam General: No acute distress. Lungs: Non-labored. Abdomen: Deferred Extremities: Warm and well-perfused. No bilateral lower extremity calf tenderness. Trace non pitting lower extremity edema Pelvic: Deferred. Neurologic: Deferred Lab Review: Recent Labs Lab Units 09/03/24 0526 08/31/24 0620 WBC K/cumm 12.1* 10.5* HEMOGLOBIN g/dL 11.7* 11.5* HEMATOCRIT % 34.0* 34.1* PLATELETS K/cumm 273 282 Recent Labs Lab Units 09/03/24 0526 08/31/24 0620 SODIUM mmol/L 139 137 POTASSIUM PLASMA mmol/L 4.0 3.7 CHLORIDE mmol/L 105 103 CO2 mmol/L 20* 22 ANIONGAP mmol/L 14 12 GLUCOSE mg/dL 68* 70 BUN SERUM mg/dL 8 6 CREATININE mg/dL 0.55* 0.56* CALCIUM mg/dL 9.3 9.5 ALBUMIN g/dL 3.3* 3.2* ALK PHOS Units/L 111 103 ALT Units/L 22 28 AST Units/L 24 25 BILIRUBIN TOTAL mg/dL 0.3 0.2 ASSESSMENT/PLAN 29 y.o. at 31w6d a/f preeclampsia with severe features #PreE w/SF - Dx based on newly elevated blood pressures requiring IV meds prior to transfer - presented to OSH with sustained severe range BP requiring L20 - Admission labs CBC Hgb 11.4 Plt 278 /CMP Cr 0.56 AST 21 ALT 19/UPC 0.122 - Home regimen: None - 24 hr spotting: none - s/p Mag (stopped 07/29) due to stability - APLS: Lupus AC, Beta2 glycoprotein IgM/IgG, cardiolipin IgG.IgM negative 08/04 Plan: - Nifedipine XL 120 (^09/02) - q72h CBC/CMP, T&S - del by 34 weeks, 09/19 IOL @ 0530 #sinus tachycardia, intermittent #suspected reflex tachycardia from nifedipine - 08/04 episode of tachycardia to 130-140s - EKG with sinus tachycardia x2 - asymptomatic, negative exam - 08/05 neg RVP - 08/05 [address] PE negative (obtained per YEARS criteria) - suspect recent activity plus possible reflex tachycardia from NXL - Thyroid studies WNL #Chronic headaches - Hx SHIPLEY inside and outside of , previously on nortriptyline prior to - Presenting headache feels like prior episodes - Intermittent mild headache responsive to APAP and reglan - takes nortriptyline outside of , discussed restarting if persistent headache and acceptable safety profile in - headaches improved with ear ache treatment as separate problem #ear ache/fullness, improving - exam 08/19 with no e/o infection, mild erythema without bulging or purulence behind tympanic membrane - flonase spray, mucinex, debrox drops - symptoms improving #Aortic dilation of Fetus B - 07/27 Fetus A: Ascending/isthmus of aorta is mildly enlarged today on imaging. Aortic valve size measures within normal limits and peak systolic velocity measurements are within normal limits. Difficult to assess if aortic valve is bi or tri-leaflet. - echo Twin A 08/03: WNL - echo Twin B 08/03: mildly dilated ascending aorta (0.75cm) (same as previous scan but twins moved positions) - s/p cardiology consult - plan for echo of twin B prior to discharge #lateral ventriculomegaly of twin B fUS 08/09: Twin A: vertex, normal MVP, Twin B: vertex, normal MVP, mild left sided ventriculomegaly, right difficult to visualize. - s/p NICU consult 08/10 #Depression/ Anxiety - Previously on SSRI, stable mood this with no meds #MO -BMI 47 #FWB: #Shay TIUP - BSUS Vertex/Vertex - Genetic screening: LR NIPT, neg carrier screening - Anatomy US: Shay Twins, no evidence of TAPS or TTTS - fUS 07/27: Twin 1 1348g (11%ile), Twin 2 1784g (79%ile), Discordant 25 %. AGA of both twins. Lateral ventriculomegaly twin B, for formal anatomy US with us - fUS 08/09: Twin A: vertex, normal MVP, Twin B: vertex, normal MVP, mild left sided ventriculomegaly. No evidence of TTTS - fUS 08/16: A transverse, normal MVP, present bladder; twin B vertex, normal MVP, normal bladder. UA MCA dopplers WNL no e/o TTTS/TAPS - fUS 08/24: vert/vert; Twin 2 now presenting larger twin, Mo di screen nl, EFW 1784g (79ile); Twin 1 nl mo di screen, EFW 1348g (11ile). Discordance 25% - BMZ^07/30 @2330 - Mg stopped 07/29 - PCN deferred - S/p peds consult 08/10 - MONITORING PLAN: dNST - Shay screeening ultrasound: growth due 09/21, TTTS/TAPS screen 09/08 #MWB #VZV equivocal #Rh negative - PNL: Rh Neg/Ab Neg/HIV NR/Rub Imm/RPR NR/HepB NR/GC/CT Not obtained/VZV Equiv - 1 hr GTT early 82 - 1hr GTT 106 - 3T HIV /RPR NR/NR - s/p flu vax 07/12, Tdap 08/09 - RSV at 32 wk (09/05) - Rhogam 08/01 - GBS neg 08/01, repeat 09/03 pending - MOD: TBD, IOL 09/19 @ 0530 - MOF: breast - MOC: nexplanon - AC: BID ppx lovenox Maueren Calix MD 09/04/24 MFM attending I saw and examined the patient and agree with the assessment and plan as outlined above; I have edited where appropriate. Josefina Peter MD APPLIANCE REPAIRER APPLIANCE REPAIRER 09/03/2024 - 31w5d - Josefina Lamb MD Antepartum Progress Note Gestational Age: 31w5d Admission Date: 07/29/2024 Length of stay: 36 Admission Diagnosis: preeclampsia with severe features otherwise affected by: Shay twins, Twin B with aortic root dilation and lateral ventriculomegaly, chronic headaches, Rh neg, dep/anxiety INTERVAL EVENTS - NAEON - non sustained severe range BP with repeat mild range, increased NXL to 120mg daily - CBC/CMP WNL - one episode tachy to 129 asymptomatic, repeat normal SUBJECTIVE - good movement x2, no LOF, VB, CTX - Denies SHIPLEY, vision changes, SOB, chest pain, RUQ pain, new swelling changes. Review of Systems Negative except as per above OBJECTIVE Vitals: Temp: [36.4 ??C (97.6 ??F)-36.9 ??C (98.5 ??F)] 36.8 ??C (98.2 ??F) Pulse: [92-129] 120 Resp: [14-18] 18 BP: (127-156)/(69-111) 132/88 FHR: reactive NST x2 [place]: no regular contractions Physical Exam General: No acute distress. Lungs: Non-labored. Abdomen: Deferred Extremities: Warm and well-perfused. No bilateral lower extremity calf tenderness. Trace non pitting lower extremity edema Pelvic: Deferred. Neurologic: Deferred Lab Review: Recent Labs Lab Units 09/03/24 0526 08/31/24 0620 08/28/24 0600 WBC K/cumm 12.1* 10.5* 10.3* HEMOGLOBIN g/dL 11.7* 11.5* 11.2* HEMATOCRIT % 34.0* 34.1* 33.0* PLATELETS K/cumm 273 282 289 Recent Labs Lab Units 09/03/24 0526 08/31/24 0620 08/28/24 0600 SODIUM mmol/L 139 137 137 POTASSIUM PLASMA mmol/L 4.0 3.7 3.6 CHLORIDE mmol/L 105 103 105 CO2 mmol/L 20* 22 21* ANIONGAP mmol/L 14 12 11 GLUCOSE mg/dL 68* 70 74 BUN SERUM mg/dL 8 6 8 CREATININE mg/dL 0.55* 0.56* 0.52* CALCIUM mg/dL 9.3 9.5 9.3 ALBUMIN g/dL 3.3* 3.2* 3.2* ALK PHOS Units/L 111 103 96 ALT Units/L 22 28 25 AST Units/L 24 25 22 BILIRUBIN TOTAL mg/dL 0.3 0.2 0.2 ASSESSMENT/PLAN 29 y.o. at 31w5d a/f preeclampsia with severe features #PreE w/SF - Dx based on newly elevated blood pressures requiring IV meds prior to transfer - presented to OSH with sustained severe range BP requiring L20 - Given 4g Mg bolus prior to transfer - BPs normotensive to mild range on admission - Admission labs CBC Hgb 11.4 Plt 278 /CMP Cr 0.56 AST 21 ALT 19/UPC 0.122 - Home regimen: None - 24 hr spotting: none - s/p Mag (stopped 07/29) due to stability - APLS: Lupus AC, Beta2 glycoprotein IgM/IgG, cardiolipin IgG.IgM negative 08/04 Plan: - NXL 120 (^09/02) - q72h CBC/CMP, T&S - del by 34 weeks, 09/19 IOL @ 0530 #sinus tachycardia, intermittent - 08/04 episode of tachycardia to 130-140s - EKG with sinus tachycardia x2 - asymptomatic, negative exam - 08/05 neg RVP - 08/05 [address] PE negative (obtained per YEARS criteria) - suspect reflex tachycardia from NXL - Thyroid studies WNL #Chronic headaches - Hx SHIPLEY inside and outside of , previously on nortriptyline prior to - Presenting headache feels like prior episodes - headaches improved with ear ache treatment as separate problem - If headaches resume, consider magnesium/riboflavin vs restart nortriptyline #ear ache/fullness, improving - exam 08/19 with no e/o infection, mild erythema without bulging or purulence behind tympanic membrane - flonase spray, mucinex, debrox drops -patient reports symptomatic improvement #Aortic dilation of Fetus B - 07/27 Fetus A: Ascending/isthmus of aorta is mildly enlarged today on imaging. Aortic valve size measures within normal limits and peak systolic velocity measurements are within normal limits. Difficult to assess if aortic valve is bi or tri-leaflet. - echo Twin A 08/03: WNL - echo Twin B 08/03: mildly dilated ascending aorta (0.75cm) (same as previous scan but twins moved positions) - s/p cardiology consult - plan for echo of twin B prior to discharge #lateral ventriculomegaly of twin B fUS 08/09: Twin A: vertex, normal MVP, Twin B: vertex, normal MVP, mild left sided ventriculomegaly, right difficult to visualize. - s/p NICU consult 08/10 #Depression/ Anxiety - Previously on SSRI, stable mood this with no meds #MO -BMI 47 #FWB: #Shay TIUP - BSUS Vertex/Vertex - Genetic screening: LR NIPT, neg carrier screening - Anatomy US: Shay Twins, no evidence of TAPS or TTTS - fUS 07/27: Twin 1 1348g (11%ile), Twin 2 1784g (79%ile), Discordant 25 %. AGA of both twins. Lateral ventriculomegaly twin B, for formal anatomy US with us - fUS 08/09: Twin A: vertex, normal MVP, Twin B: vertex, normal MVP, mild left sided ventriculomegaly. No evidence of TTTS - fUS 08/16: A transverse, normal MVP, present bladder; twin B vertex, normal MVP, normal bladder. UA MCA dopplers WNL no e/o TTTS/TAPS - fUS 08/24: vert/vert; Twin 2 now presenting larger twin, Mo di screen nl, EFW 1784g (79ile); Twin 1 nl mo di screen, EFW 1348g (11ile). Discordance 25% - BMZ^07/30 @2330 - Mg stopped 07/29 - PCN deferred - S/p peds consult 08/10 - MONITORING PLAN: dNST - Shay screeening ultrasound: growth due 09/21, TTTS/TAPS screen 09/08 #MWB #VZV equivocal #Rh negative - PNL: Rh Neg/Ab Neg/HIV NR/Rub Imm/RPR NR/HepB NR/GC/CT Not obtained/VZV Equiv - 1 hr GTT early 82 - 1hr GTT 106 - 3T HIV /RPR NR - s/p flu vax 07/12, Tdap 08/09 - RSV at 32 wk (09/05) - Rhogam 08/01 - GBS neg 08/01 - MOD: TBD, IOL 09/19 @ 0530 - MOF: breast - MOC: nexplanon - AC: BID ppx lovenox Maureen Calix MD 09/03/24 MFM attending I saw and examined the patient and agree with the assessment and plan as outlined above; I have edited where appropriate. Josefina Peter MD APPLIANCE REPAIRER APPLIANCE REPAIRER 09/02/2024 - w - Nelson Melendez MD R2 Update: Patient persistently MR, will give additional 30 mg NXL now and increase to 120 mg NXL tomorrow AM. Ashley Melendez MD MPH PGY2 OBGYN APPLIANCE REPAIRER 09/02/2024 - - Maureen Clark MD Antepartum Progress Note Gestational Age: 31w4d Admission Date: 07/29/2024 Length of stay: 35 Admission Diagnosis: preeclampsia with severe features otherwise affected by: Shay twins, Twin B with aortic root dilation and lateral ventriculomegaly, chronic headaches, Rh neg, dep/anxiety INTERVAL EVENTS - NAEON - < 50% MR BPs - one episode tachy to 127 asymptomatic, repeat normal SUBJECTIVE - good movement x2, no LOF, VB, CTX - Denies SHIPLEY, vision changes, SOB, chest pain, RUQ pain, new swelling changes. Review of Systems Negative except as per above OBJECTIVE Vitals: Temp: [36.7 ??C (98 ??F)-37 ??C (98.6 ??F)] 37 ??C (98.6 ??F) Pulse: [104-127] 113 Resp: [17-20] 18 BP: (125-141)/(60-94) 125/60 FHR: reactive NST x2 [place]: no regular contractions Physical Exam General: No acute distress. Lungs: Non-labored. Abdomen: Deferred Extremities: Warm and well-perfused. No bilateral lower extremity calf tenderness. Trace non pitting lower extremity edema Pelvic: Deferred. Neurologic: Deferred Lab Review: Recent Labs Lab Units 08/31/24 0620 08/28/24 0600 WBC K/cumm 10.5* 10.3* HEMOGLOBIN g/dL 11.5* 11.2* HEMATOCRIT % 34.1* 33.0* PLATELETS K/cumm 282 289 Recent Labs Lab Units 08/31/24 0620 08/28/24 0600 SODIUM mmol/L 137 137 POTASSIUM PLASMA mmol/L 3.7 3.6 CHLORIDE mmol/L 103 105 CO2 mmol/L 22 21* ANIONGAP mmol/L 12 11 GLUCOSE mg/dL 70 74 BUN SERUM mg/dL 6 8 CREATININE mg/dL 0.56* 0.52* CALCIUM mg/dL 9.5 9.3 ALBUMIN g/dL 3.2* 3.2* ALK PHOS Units/L 103 96 ALT Units/L 28 25 AST Units/L 25 22 BILIRUBIN TOTAL mg/dL 0.2 0.2 ASSESSMENT/PLAN 29 y.o. at 31w4d a/f preeclampsia with SF #PreE w/SF - Dx based on newly elevated blood pressures requiring IV meds - presented to OSH with sustained severe range BP requiring L20 - Given 4g Mg bolus prior to transfer - BPs normotensive to mild range on admission - Admission labs CBC Hgb 11.4 Plt 278 /CMP Cr 0.56 AST 21 ALT 19/UPC 0.122 - Home regimen: None - 24 hr spotting: none - s/p Mag (stopped 07/29) due to stability - APLS: Lupus AC, Beta2 glycoprotein IgM/IgG, cardiolipin IgG.IgM negative 08/04 Plan: - NXL 90mg (^08/01) - q72h CBC/CMP, T&S - del by 34 weeks, 09/19 IOL @ 0530 #sinus tachycardia, intermittent - 08/04 episode of tachycardia to 130-140s - EKG with sinus tachycardia x2 - asymptomatic, negative exam - 08/05 neg RVP - 08/[address] PE negative (obtained per YEARS criteria) - suspect recent activity plus possible reflex tachycardia from NXL - if persistent, change NXL to labetalol 200 TID and uptitrate for BP control - Thyroid studies WNL #Chronic headaches - Hx SHIPLEY inside and outside of , previously on nortriptyline prior to - Presenting headache feels like prior episodes - Intermittent mild headache responsive to APAP and reglan - takes nortriptyline outside of , discussed restarting if persistent headache and acceptable safety profile in - headaches improved with ear ache treatment as separate problem - If headaches resume, consider magnesium/riboflavin #ear ache/fullness, improving - exam 08/19 with no e/o infection, mild erythema without bulging or purulence behind tympanic membrane - repeat exam 08/28 same as above - flonase spray, mucinex, debrox drops - if does not improve, repeat ear exam and consider antibiotics #Aortic dilation of Fetus B - 07/27 Fetus A: Ascending/isthmus of aorta is mildly enlarged today on imaging. Aortic valve size measures within normal limits and peak systolic velocity measurements are within normal limits. Difficult to assess if aortic valve is bi or tri-leaflet. - echo Twin A 08/03: WNL - echo Twin B 08/03: mildly dilated ascending aorta (0.75cm) (same as previous scan but twins moved positions) - s/p cardiology consult - plan for echo of twin B prior to discharge #lateral ventriculomegaly of twin B fUS 08/09: Twin A: vertex, normal MVP, Twin B: vertex, normal MVP, mild left sided ventriculomegaly, right difficult to visualize. - s/p NICU consult 08/10 #Depression/ Anxiety - Previously on SSRI, stable mood this with no meds #MO -BMI 47 #FWB: #Shay TIUP - BSUS Vertex/Vertex - Genetic screening: LR NIPT, neg carrier screening - Anatomy US: Shay Twins, no evidence of TAPS or TTTS - fUS 07/27: Twin 1 1348g (11%ile), Twin 2 1784g (79%ile), Discordant 25 %. AGA of both twins. Lateral ventriculomegaly twin B, for formal anatomy US with us - fUS 08/09: Twin A: vertex, normal MVP, Twin B: vertex, normal MVP, mild left sided ventriculomegaly. No evidence of TTTS - fUS 08/16: A transverse, normal MVP, present bladder; twin B vertex, normal MVP, normal bladder. UA MCA dopplers WNL no e/o TTTS/TAPS - fUS 11/20: vert/vert; Twin 2 now presenting larger twin, Mo di screen nl, EFW 1784g (79ile); Twin 1 nl mo di screen, EFW 1348g (11ile). Discordance 25% - BMZ^07/30 @2330 - Mg stopped 07/29 - PCN deferred - S/p peds consult 08/10 - MONITORING PLAN: dNST - Shay screeening ultrasound: growth due 09/21, TTTS/TAPS screen 09/08 #MWB #VZV equivocal #Rh negative - PNL: Rh Neg/Ab Neg/HIV NR/Rub Imm/RPR NR/HepB NR/GC/CT Not obtained/VZV Equiv - 1 hr GTT early 82 - 1hr GTT 106 - 3T HIV /RPR NR - s/p flu vax 07/12, Tdap 08/09 - RSV at 32 wk (09/05) - Rhogam 08/01 - GBS neg 08/01 - MOD: TBD, IOL 09/19 @ 0530 - MOF: breast - MOC: nexplanon - AC: BID ppx lovenox Maureen Calix MD 09/02/24 Cosigned by Jessica Naranjo MD at 09/02/2024 9:53 AM GAS APPLIANCE REPAIRER APPLIANCE REPAIRER APPLIANCE REPAIRER Associated attestation - Jessica Naranjo MD - 09/02/2024 9:53 AM GAS APPLIANCE REPAIRER Images from the original note were not included. MFM Attending Attestation I have seen and discussed Suki Leon with the resident/fellow on 09/02/2024. I have evaluated the patient and reviewed the treatment plan and recommendations. I agree with the findings and the plan of care as documented in the note. Overall blood pressures are well controlled on nifedipine XL 90 mg qD. Asymptomatic. Continue inpatient management. Jessica Naranjo MD Him Analyst Division of Maternal- Medicine and Ultrasound Department of Obstetrics and Gynecology [facility] 09/02/2024 09/01/2024 - 3d - Staley -Maureen Mandujano MD Antepartum Progress Note Gestational Age: 31w3d Admission Date: 07/29/2024 Length of stay: 34 Admission Diagnosis: preeclampsia with severe features otherwise affected by: Shay twins, Twin B with aortic root dilation and lateral ventriculomegaly, chronic headaches, Rh neg, dep/anxiety INTERVAL EVENTS - NAEON - approx 50% MR BPs - one episode tachy to 130 asymptomatic SUBJECTIVE - good movement x2, no LOF, VB, CTX - Denies SHIPLEY, vision changes, SOB, chest pain, RUQ pain, new swelling changes. Review of Systems Negative except as per above OBJECTIVE Vitals: Temp: [36.7 ??C (98 ??F)-37.1 ??C (98.7 ??F)] 36.7 ??C (98.1 ??F) Pulse: [101-130] 114 Resp: [17-18] 17 BP: (126-139)/(84-103) 131/91 FHR: reactive NST x2 [place]: no regular contractions Physical Exam General: No acute distress. Lungs: Non-labored. Abdomen: Deferred Extremities: Warm and well-perfused. No bilateral lower extremity calf tenderness. Trace non pitting lower extremity edema Pelvic: Deferred. Neurologic: Deferred Lab Review: Recent Labs Lab Units 08/31/24 0620 08/28/24 0600 WBC K/cumm 10.5* 10.3* HEMOGLOBIN g/dL 11.5* 11.2* HEMATOCRIT % 34.1* 33.0* PLATELETS K/cumm 282 289 Recent Labs Lab Units 08/31/24 0620 08/28/24 0600 SODIUM mmol/L 137 137 POTASSIUM PLASMA mmol/L 3.7 3.6 CHLORIDE mmol/L 103 105 CO2 mmol/L 22 21* ANIONGAP mmol/L 12 11 GLUCOSE mg/dL 70 74 BUN SERUM mg/dL 6 8 CREATININE mg/dL 0.56* 0.52* CALCIUM mg/dL 9.5 9.3 ALBUMIN g/dL 3.2* 3.2* ALK PHOS Units/L 103 96 ALT Units/L 28 25 AST Units/L 25 22 BILIRUBIN TOTAL mg/dL 0.2 0.2 ASSESSMENT/PLAN 29 y.o. at 31w3d a/f preeclampsia with SF #PreE w/SF - Dx based on newly elevated blood pressures requiring IV meds - presented to OSH with sustained severe range BP requiring L20 - Given 4g Mg bolus prior to transfer - BPs normotensive to mild range on admission - Admission labs CBC Hgb 11.4 Plt 278 /CMP Cr 0.56 AST 21 ALT 19/UPC 0.122 - Home regimen: None - 24 hr spotting: none - s/p Mag (stopped 07/29) due to stability - APLS: Lupus AC, Beta2 glycoprotein IgM/IgG, cardiolipin IgG.IgM negative 08/04 Plan: - NXL 90mg (^08/01) - q72h CBC/CMP, T&S - del by 34 weeks, 09/19 IOL @ 0530 #sinus tachycardia, intermittent - 08/04 episode of tachycardia to 130-140s - EKG with sinus tachycardia x2 - asymptomatic, negative exam - 08/05 neg RVP - 08/[address] PE negative (obtained per YEARS criteria) - suspect recent activity plus possible reflex tachycardia from NXL - if persistent, change NXL to labetalol 200 TID and uptitrate for BP control - Thyroid studies WNL #Chronic headaches - Hx SHIPLEY inside and outside of , previously on nortriptyline prior to - Presenting headache feels like prior episodes - Intermittent mild headache responsive to APAP and reglan - takes nortriptyline outside of , discussed restarting if persistent headache and acceptable safety profile in - headaches improved with ear ache treatment as separate problem - If headaches resume, consider magnesium/riboflavin #ear ache/fullness, improving - exam 08/19 with no e/o infection, mild erythema without bulging or purulence behind tympanic membrane - repeat exam 08/28 same as above - flonase spray, mucinex, debrox drops - if does not improve, repeat ear exam and consider antibiotics #Aortic dilation of Fetus B - 07/27 Fetus A: Ascending/isthmus of aorta is mildly enlarged today on imaging. Aortic valve size measures within normal limits and peak systolic velocity measurements are within normal limits. Difficult to assess if aortic valve is bi or tri-leaflet. - echo Twin A 08/03: WNL - echo Twin B 08/03: mildly dilated ascending aorta (0.75cm) (same as previous scan but twins moved positions) - s/p cardiology consult - plan for echo of twin B prior to discharge #lateral ventriculomegaly of twin B fUS 08/09: Twin A: vertex, normal MVP, Twin B: vertex, normal MVP, mild left sided ventriculomegaly, right difficult to visualize. - s/p NICU consult 08/10 #Depression/ Anxiety - Previously on SSRI, stable mood this with no meds #MO -BMI 47 #FWB: #Shay TIUP - BSUS Vertex/Vertex - Genetic screening: LR NIPT, neg carrier screening - Anatomy US: Shay Twins, no evidence of TAPS or TTTS - fUS 07/27: Twin 1 1348g (11%ile), Twin 2 1784g (79%ile), Discordant 25 %. AGA of both twins. Lateral ventriculomegaly twin B, for formal anatomy US with us - fUS 08/09: Twin A: vertex, normal MVP, Twin B: vertex, normal MVP, mild left sided ventriculomegaly. No evidence of TTTS - fUS 08/16: A transverse, normal MVP, present bladder; twin B vertex, normal MVP, normal bladder. UA MCA dopplers WNL no e/o TTTS/TAPS - fUS 08/24: vert/vert; Twin 2 now presenting larger twin, Mo di screen nl, EFW 1784g (79ile); Twin 1 nl mo di screen, EFW 1348g (11ile). Discordance 25% - BMZ^07/30 @2330 - Mg stopped 07/29 - PCN deferred - S/p peds consult 08/10 - MONITORING PLAN: dNST - Shay screeening ultrasound: growth due 09/21, TTTS/TAPS screen 09/08 #MWB #VZV equivocal #Rh negative - PNL: Rh Neg/Ab Neg/HIV NR/Rub Imm/RPR NR/HepB NR/GC/CT Not obtained/VZV Equiv - 1 hr GTT early 82 - 1hr GTT 106 - 3T HIV /RPR NR - s/p flu vax 07/12, Tdap 08/09 - RSV at 32 wk (09/05) - Rhogam 08/01 - GBS neg 08/01 - MOD: TBD, IOL 09/19 @ 0530 - MOF: breast - MOC: nexplanon - AC: BID ppx lovenox Maureen Calix MD 09/01/24 Cosigned by Jessica Naranjo MD at 09/01/2024 9:34 AM GAS APPLIANCE REPAIRER APPLIANCE REPAIRER APPLIANCE REPAIRER Associated attestation - Jessica Naranjo MD - 09/01/2024 9:34 AM GAS APPLIANCE REPAIRER Images from the original note were not included. MFM Attending Attestation I have seen and discussed Suki Leon with the CARLI/resident/fellow on 09/01/2024. I have evaluated the patient and reviewed the treatment plan and recommendations. I agree with the findings and the plan of care as documented in the note. Blood pressures overall well controlled in the last 24 hours on nifedipine 90 mg XL. Asymptomatic. Continue inpatient management. Jessica Naranjo MD Him Analyst Division of Maternal- Medicine and Ultrasound Department of Obstetrics and Gynecology [facility] 09/01/2024 08/31/2024 - w2d - Maggi Huang LCSW Reason for Admission Pt (Suki Leon 1995) was admitted on 07/29/2024 for Preeclampsia, unspecified trimester [O14.90]. Pt discussed in DCAM rounds with medical team. Per DCAM rounds, pt remains admitted to the [facility] due to ongoing medical needs. SW to follow for coping, adjustment to diagnosis as needed, and assess for social needs. SW provides 2 gas cards for pt's to travel between home and [facility] to provide support. SW remains available. Maggi Huang MANAGER FRONT, HOPPER ATTENDANT Social Work APPLIANCE REPAIRER 08/31/2024 - w2d - Anastasia Sheppard MD Antepartum Progress Note Gestational Age: 31w2d Admission Date: 07/29/2024 Length of stay: 33 Admission Diagnosis: preeclampsia with severe features otherwise affected by: Shay twins, Twin B with aortic root dilation and lateral ventriculomegaly, chronic headaches, Rh neg, dep/anxiety INTERVAL EVENTS - NAEON - normotensive with 1x MR BP SUBJECTIVE - Ear continues to feel improved - good movement x2, no LOF, VB, CTX - Denies SHIPLEY, vision changes, SOB, chest pain, RUQ pain, new swelling changes. Review of Systems Negative except as per above OBJECTIVE Vitals: Temp: [36.7 ??C (98.1 ??F)-37 ??C (98.6 ??F)] 37 ??C (98.6 ??F) Pulse: [96-126] 114 Resp: [17-20] 18 BP: (118-140)/(69-94) 140/94 FHR: reactive NST x2 [place]: no regular contractions Physical Exam General: No acute distress. Lungs: Non-labored. Abdomen: Deferred Extremities: Warm and well-perfused. No bilateral lower extremity calf tenderness. Trace non pitting lower extremity edema Pelvic: Deferred. Neurologic: Deferred Lab Review: Recent Labs Lab Units 08/28/24 0600 08/25/24 0619 WBC K/cumm 10.3* 10.5* HEMOGLOBIN g/dL 11.2* 11.4* HEMATOCRIT % 33.0* 33.4* PLATELETS K/cumm 289 299 Recent Labs Lab Units 08/28/24 0600 08/25/24 0619 SODIUM mmol/L 137 139 POTASSIUM PLASMA mmol/L 3.6 3.5 CHLORIDE mmol/L 105 105 CO2 mmol/L 21* 22 ANIONGAP mmol/L 11 12 GLUCOSE mg/dL 74 70 BUN SERUM mg/dL 8 6 CREATININE mg/dL 0.52* 0.53* CALCIUM mg/dL 9.3 9.2 ALBUMIN g/dL 3.2* 3.2* ALK PHOS Units/L 96 92 ALT Units/L 25 22 AST Units/L 22 22 BILIRUBIN TOTAL mg/dL 0.2 0.2 ASSESSMENT/PLAN 29 y.o. at 31w2d a/f preeclampsia with SF #PreE w/SF - Dx based on newly elevated blood pressures requiring IV meds - presented to OSH with sustained severe range BP requiring L20 - Given 4g Mg bolus prior to transfer - BPs normotensive to mild range on admission - Admission labs CBC Hgb 11.4 Plt 278 /CMP Cr 0.56 AST 21 ALT 19/UPC 0.122 - Home regimen: None - 24 hr spotting: none - s/p Mag (stopped 07/29) due to stability - APLS: Lupus AC, Beta2 glycoprotein IgM/IgG, cardiolipin IgG.IgM negative 08/04 Plan: - NXL 90mg (^08/01) - q72h CBC/CMP, T&S - del by 34 weeks, 09/19 IOL @0530 #sinus tachycardia, intermittent - 08/04 episode of tachycardia to 130-140s - EKG with sinus tachycardia x2 - asymptomatic, negative exam - neg RVP - Ddimer [address] PE negative (obtained per YEARS criteria) - suspect recent activity plus possible reflex tachycardia from NXL - if persistent, change NXL to labetalol 200 TID and uptitrate for BP control - Thyroid studies WNL #Chronic headaches - Hx SHIPLEY inside and outside of , previously on nortriptyline prior to - Presenting headache feels like prior episodes - Intermittent mild headache responsive to APAP and reglan - takes nortriptyline outside of , discussed restarting if persistent headache and acceptable safety profile in - headaches improved with ear ache treatment as separate problem - If headaches resume, consider magnesium/riboflavin #ear ache/fullness - exam 08/19 with no e/o infection, mild erythema without bulging or purulence behind tympanic membrane - repeat exam 08/28 same as above - Improving with flonase spray, mucinex, debrox drops #Aortic dilation of Fetus B - 07/27 Fetus A: Ascending/isthmus of aorta is mildly enlarged today on imaging. Aortic valve size measures within normal limits and peak systolic velocity measurements are within normal limits. Difficult to assess if aortic valve is bi or tri-leaflet. - echo Twin A 08/03: WNL - echo Twin B 08/03: mildly dilated ascending aorta (0.75cm) (same as previous scan but twins moved positions) - s/p cardiology consult - plan for echo of twin B prior to discharge #lateral ventriculomegaly of twin B fUS 08/09: Twin A: vertex, normal MVP, Twin B: vertex, normal MVP, mild left sided ventriculomegaly, right difficult to visualize. - s/p NICU consult 08/10 #Depression/ Anxiety - Previously on SSRI, stable mood this with no meds #MO -BMI 47 #FWB: #Shay TIUP - BSUS Vertex/Vertex - Genetic screening: LR NIPT, neg carrier screening - Anatomy US: Shay Twins, no evidence of TAPS or TTTS - fUS 07/27: Twin 1 1348g (11%ile), Twin 2 1784g (79%ile), Discordant 25 %. AGA of both twins. Lateral ventriculomegaly twin B, for formal anatomy US with us - fUS 08/09: Twin A: vertex, normal MVP, Twin B: vertex, normal MVP, mild left sided ventriculomegaly. No evidence of TTTS - fUS 08/16: A transverse, normal MVP, present bladder; twin B vertex, normal MVP, normal bladder. UA MCA dopplers WNL no e/o TTTS/TAPS - fUS 08/24: vert/vert; Twin 2 now presenting larger twin, Mo di screen nl, EFW 1784g (79ile); Twin 1 nl mo di screen, EFW 1348g (11ile). Discordance 25% - BMZ^07/30 @2330 - Mg stopped 07/29 - PCN deferred - S/p peds consult 08/10 - MONITORING PLAN: dNST - Shay screeening ultrasound: growth due 09/21, TTTS/TAPS screen 09/08 #MWB #VZV equivocal #Rh negative - PNL: Rh Neg/Ab Neg/HIV NR/Rub Imm/RPR NR/HepB NR/GC/CT Not obtained/VZV Equiv - 1 hr GTT early 82 - 1hr GTT 106 - 3T HIV /RPR NR - s/p flu vax 07/12, Tdap 08/09 - RSV at 32 wk (09/05) - Rhogam 08/01 - GBS neg 08/01 - MOD: TBD, IOL 09/19 @ 0530 - MOF: breast - MOC: nexplanon - AC: BID ppx lovenox Anastasia Plaza MD 08/31/24 Cosigned by Nini Cortez MD at 08/31/2024 12:26 PM GAS APPLIANCE REPAIRER APPLIANCE REPAIRER APPLIANCE REPAIRER Associated attestation - Nini Cortez MD - 08/31/2024 12:26 PM GAS APPLIANCE REPAIRER MFM Attending Attestation I have seen and examined the patient, Suki Leon, on 08/31/2024 and I am in agreement with the plan as documented in the resident/fellow/CARLI's note. Stable from preE standpoint. Continue inpatient management. Nini Cortez MD 08/31/2024 08/30/2024 - 31w1d - [facility], Maureen Mancini MD Antepartum Progress Note Gestational Age: 31w1d Admission Date: 07/29/2024 Length of stay: 32 Admission Diagnosis: preeclampsia with severe features otherwise affected by: Shay twins, Twin B with aortic root dilation and lateral ventriculomegaly, chronic headaches, Rh neg, dep/anxiety INTERVAL EVENTS - NAEON - normotensive with 1x MR BP SUBJECTIVE - good movement x2, no LOF, VB, CTX Denies SHIPLEY, vision changes, SOB, chest pain, RUQ pain, new swelling changes. Review of Systems Negative except as per above OBJECTIVE Vitals: Temp: [36.7 ??C (98.1 ??F)-36.8 ??C (98.3 ??F)] 36.7 ??C (98.1 ??F) Pulse: [101-119] 105 Resp: [16-18] 16 BP: (132-137)/(75-92) 132/83 FHR: reactive NST x2 [place]: no regular contractions Physical Exam General: No acute distress. Lungs: Non-labored. Abdomen: Deferred Extremities: Warm and well-perfused. No bilateral lower extremity calf tenderness. Trace non pitting lower extremity edema Pelvic: Deferred. Neurologic: Deferred Lab Review: Recent Labs Lab Units 08/28/24 0600 08/25/24 0619 WBC K/cumm 10.3* 10.5* HEMOGLOBIN g/dL 11.2* 11.4* HEMATOCRIT % 33.0* 33.4* PLATELETS K/cumm 289 299 Recent Labs Lab Units 08/28/24 0600 08/25/24 0619 SODIUM mmol/L 137 139 POTASSIUM PLASMA mmol/L 3.6 3.5 CHLORIDE mmol/L 105 105 CO2 mmol/L 21* 22 ANIONGAP mmol/L 11 12 GLUCOSE mg/dL 74 70 BUN SERUM mg/dL 8 6 CREATININE mg/dL 0.52* 0.53* CALCIUM mg/dL 9.3 9.2 ALBUMIN g/dL 3.2* 3.2* ALK PHOS Units/L 96 92 ALT Units/L 25 22 AST Units/L 22 22 BILIRUBIN TOTAL mg/dL 0.2 0.2 ASSESSMENT/PLAN 29 y.o. at 31w1d a/f preeclampsia with SF #PreE w/SF - Dx based on newly elevated blood pressures requiring IV meds - presented to OSH with sustained severe range BP requiring L20 - Given 4g Mg bolus prior to transfer - BPs normotensive to mild range on admission - Admission labs CBC Hgb 11.4 Plt 278 /CMP Cr 0.56 AST 21 ALT 19/UPC 0.122 - Home regimen: None - 24 hr spotting: none - s/p Mag (stopped 07/29) due to stability - APLS: Lupus AC, Beta2 glycoprotein IgM/IgG, cardiolipin IgG.IgM negative 08/04 Plan: - NXL 90mg (^08/01) - q72h CBC/CMP, T&S - del by 34 weeks, 09/19 IOL @ 0530 #sinus tachycardia, intermittent - 08/04 episode of tachycardia to 130-140s - EKG with sinus tachycardia x2 - asymptomatic, negative exam - neg RVP - Ddimer [address] PE negative (obtained per YEARS criteria) - suspect recent activity plus possible reflex tachycardia from NXL - if persistent, change NXL to labetalol 200 TID and uptitrate for BP control - Thyroid studies WNL #Chronic headaches - Hx SHIPLEY inside and outside of , previously on nortriptyline prior to - Presenting headache feels like prior episodes - Intermittent mild headache responsive to APAP and reglan - takes nortriptyline outside of , discussed restarting if persistent headache and acceptable safety profile in - headaches improved with ear ache treatment as separate problem - If headaches resume, consider magnesium/riboflavin #ear ache/fullness - exam 08/19 with no e/o infection, mild erythema without bulging or purulence behind tympanic membrane - repeat exam 08/28 same as above - flonase spray, mucinex, debrox drops - if does not improve, repeat ear exam and consider antibiotics #Aortic dilation of Fetus B - 07/27 Fetus A: Ascending/isthmus of aorta is mildly enlarged today on imaging. Aortic valve size measures within normal limits and peak systolic velocity measurements are within normal limits. Difficult to assess if aortic valve is bi or tri-leaflet. - echo Twin A 08/03: WNL - echo Twin B 08/03: mildly dilated ascending aorta (0.75cm) (same as previous scan but twins moved positions) - s/p cardiology consult - plan for echo of twin B prior to discharge #lateral ventriculomegaly of twin B fUS 08/09: Twin A: vertex, normal MVP, Twin B: vertex, normal MVP, mild left sided ventriculomegaly, right difficult to visualize. - s/p NICU consult 08/10 #Depression/ Anxiety - Previously on SSRI, stable mood this with no meds #MO -BMI 47 #FWB: #Shay TIUP - BSUS Vertex/Vertex - Genetic screening: LR NIPT, neg carrier screening - Anatomy US: Shay Twins, no evidence of TAPS or TTTS - fUS 07/27: Twin 1 1348g (11%ile), Twin 2 1784g (79%ile), Discordant 25 %. AGA of both twins. Lateral ventriculomegaly twin B, for formal anatomy US with us - fUS 08/09: Twin A: vertex, normal MVP, Twin B: vertex, normal MVP, mild left sided ventriculomegaly. No evidence of TTTS - fUS 08/16: A transverse, normal MVP, present bladder; twin B vertex, normal MVP, normal bladder. UA MCA dopplers WNL no e/o TTTS/TAPS - fUS 08/24: vert/vert; Twin 2 now presenting larger twin, Mo di screen nl, EFW 1784g (79ile); Twin 1 nl mo di screen, EFW 1348g (11ile). Discordance 25% - BMZ^07/30 @2330 - Mg stopped 07/29 - PCN deferred - S/p peds consult 11/6 - MONITORING PLAN: dNST - Shay screeening ultrasound: growth due 09/21, TTTS/TAPS screen 09/08 #MWB #VZV equivocal #Rh negative - PNL: Rh Neg/Ab Neg/HIV NR/Rub Imm/RPR NR/HepB NR/GC/CT Not obtained/VZV Equiv - 1 hr GTT early 82 - 1hr GTT 106 - 3T HIV /RPR NR - s/p flu vax 07/12, Tdap 08/09 - RSV at 32 wk (09/05) - Rhogam 08/01 - GBS neg 08/01 - MOD: TBD, IOL 09/19 @ 0530 - MOF: breast - MOC: nexplanon - AC: BID ppx lovenox Maureen Calix MD 08/30/24 Cosigned by Nini Cortez MD at 08/30/2024 11:35 AM GAS APPLIANCE REPAIRER APPLIANCE REPAIRER APPLIANCE REPAIRER Associated attestation - Nini Cortez MD - 08/30/2024 11:35 AM GAS APPLIANCE REPAIRER MFM Attending Attestation I have seen and examined the patient, Suki Leon, on 08/30/2024 and I am in agreement with the plan as documented in the resident/fellow/CARLI's note. Nini Cortez MD 08/30/2024 08/29/2024 - 31w0d - Maureen Clark MD Antepartum Progress Note Gestational Age: 31w0d Admission Date: 07/29/2024 Length of stay: 31 Admission Diagnosis: preeclampsia with severe features otherwise affected by: Shay twins, Twin B with aortic root dilation and lateral ventriculomegaly, chronic headaches, Rh neg, dep/anxiety INTERVAL EVENTS - NAEON - normotensive with 2x MR BP SUBJECTIVE - good movement x2, no LOF, VB, CTX Denies SHIPLEY, vision changes, SOB, chest pain, RUQ pain, new swelling changes. Review of Systems Negative except as per above OBJECTIVE Vitals: Temp: [36.6 ??C (97.8 ??F)-36.8 ??C (98.2 ??F)] 36.7 ??C (98 ??F) Pulse: [112-122] 113 Resp: [18] 18 BP: (123-145)/(75-92) 123/75 FHR: reactive NST x2 [place]: no regular contractions Physical Exam General: No acute distress. Lungs: Non-labored. Abdomen: Deferred Extremities: Warm and well-perfused. No bilateral lower extremity calf tenderness. Trace non pitting lower extremity edema Pelvic: Deferred. Neurologic: Deferred Lab Review: Recent Labs Lab Units 08/28/24 0600 08/25/24 0619 WBC K/cumm 10.3* 10.5* HEMOGLOBIN g/dL 11.2* 11.4* HEMATOCRIT % 33.0* 33.4* PLATELETS K/cumm 289 299 Recent Labs Lab Units 08/28/24 0600 08/25/24 0619 SODIUM mmol/L 137 139 POTASSIUM PLASMA mmol/L 3.6 3.5 CHLORIDE mmol/L 105 105 CO2 mmol/L 21* 22 ANIONGAP mmol/L 11 12 GLUCOSE mg/dL 74 70 BUN SERUM mg/dL 8 6 CREATININE mg/dL 0.52* 0.53* CALCIUM mg/dL 9.3 9.2 ALBUMIN g/dL 3.2* 3.2* ALK PHOS Units/L 96 92 ALT Units/L 25 22 AST Units/L 22 22 BILIRUBIN TOTAL mg/dL 0.2 0.2 ASSESSMENT/PLAN 29 y.o. at 31w0d a/f preeclampsia with SF #PreE w/SF - Dx based on newly elevated blood pressures requiring IV meds - presented to OSH with sustained severe range BP requiring L20 - Given 4g Mg bolus prior to transfer - BPs normotensive to mild range on admission - Admission labs CBC Hgb 11.4 Plt 278 /CMP Cr 0.56 AST 21 ALT 19/UPC 0.122 - Home regimen: None - 24 hr spotting: none - s/p Mag (stopped 07/29) due to stability - APLS: Lupus AC, Beta2 glycoprotein IgM/IgG, cardiolipin IgG.IgM negative 08/04 Plan: - NXL 90mg (^08/01) - q72h CBC/CMP, T&S - del by 34 weeks, 09/19 IOL @ 0530 #sinus tachycardia, intermittent - 08/04 episode of tachycardia to 130-140s - EKG with sinus tachycardia x2 - asymptomatic, negative exam - neg RVP - Ddimer [address] PE negative (obtained per YEARS criteria) - suspect recent activity plus possible reflex tachycardia from NXL - if persistent, change NXL to labetalol 200 TID and uptitrate for BP control - Thyroid studies WNL #Chronic headaches - Hx SHIPLEY inside and outside of , previously on nortriptyline prior to - Presenting headache feels like prior episodes - Intermittent mild headache responsive to APAP and reglan - takes nortriptyline outside of , discussed restarting if persistent headache and acceptable safety profile in - headaches improved with ear ache treatment as separate problem - If headaches resume, consider magnesium/riboflavin #ear ache/fullness - exam 08/19 with no e/o infection, mild erythema without bulging or purulence behind tympanic membrane - repeat exam 08/28 same as above - flonase spray, mucinex, debrox drops - if does not improve, repeat ear exam and consider antibiotics #Aortic dilation of Fetus B - 07/27 Fetus A: Ascending/isthmus of aorta is mildly enlarged today on imaging. Aortic valve size measures within normal limits and peak systolic velocity measurements are within normal limits. Difficult to assess if aortic valve is bi or tri-leaflet. - echo Twin A 08/03: WNL - echo Twin B 08/03: mildly dilated ascending aorta (0.75cm) (same as previous scan but twins moved positions) - s/p cardiology consult - plan for echo of twin B prior to discharge #lateral ventriculomegaly of twin B fUS 08/09: Twin A: vertex, normal MVP, Twin B: vertex, normal MVP, mild left sided ventriculomegaly, right difficult to visualize. - s/p NICU consult 08/10 #Depression/ Anxiety - Previously on SSRI, stable mood this with no meds #MO -BMI 47 #FWB: #Shay TIUP - BSUS Vertex/Vertex - Genetic screening: LR NIPT, neg carrier screening - Anatomy US: Shay Twins, no evidence of TAPS or TTTS - fUS 07/27: Twin 1 1348g (11%ile), Twin 2 1784g (79%ile), Discordant 25 %. AGA of both twins. Lateral ventriculomegaly twin B, for formal anatomy US with us - fUS 08/09: Twin A: vertex, normal MVP, Twin B: vertex, normal MVP, mild left sided ventriculomegaly. No evidence of TTTS - fUS 08/16: A transverse, normal MVP, present bladder; twin B vertex, normal MVP, normal bladder. UA MCA dopplers WNL no e/o TTTS/TAPS - fUS 08/24: vert/vert; Twin 2 now presenting larger twin, Mo di screen nl, EFW 1784g (79ile); Twin 1 nl mo di screen, EFW 1348g (11ile). Discordance 25% - BMZ^07/30 @2330 - Mg stopped 07/29 - PCN deferred - S/p peds consult 08/10 - MONITORING PLAN: dNST - Shay screeening ultrasound: growth due 09/21, TTTS/TAPS screen 09/08 #MWB #VZV equivocal #Rh negative - PNL: Rh Neg/Ab Neg/HIV NR/Rub Imm/RPR NR/HepB NR/GC/CT Not obtained/VZV Equiv - 1 hr GTT early 82 - 1hr GTT 106 - 3T HIV /RPR NR - s/p flu vax 07/12, Tdap 08/09 - RSV at 32 wk (09/05) - Rhogam 08/01 - GBS neg 08/01 - MOD: TBD, IOL 09/19 @ 0530 - MOF: breast - MOC: nexplanon - AC: BID ppx lovenox Maureen Calix MD 08/29/24 Cosigned by Nini Cortez MD at 08/29/2024 9:11 AM GAS APPLIANCE REPAIRER APPLIANCE REPAIRER APPLIANCE REPAIRER Associated attestation - Nini Cortez MD - 08/29/2024 9:11 AM GAS APPLIANCE REPAIRER MFM Attending Attestation I have seen and examined the patient, Suki Leon, on 08/29/2024 and I am in agreement with the plan as documented in the resident/fellow/CARLI's note. G1 at 31w0d who is admitted with preE with severe features. BP well controlled. Labs WNL. TTTS screen up to date. No issues today. Nini Cortez MD 08/29/2024 08/28/2024 - 30w6d - Meena Khalil MD R2 Update MD to bedside for ear exam. Patient reporting multiple days of muffled hearing from right ear. She has reported ear ache/fullness since 08/19 and was started on flonase, mucinex, and debrox drops. On exam, mild erythema noted around ear drum. Ear drum without evidence of bulging or purulent discharge. Appearance of white filmy layer over tympanic membrane. Plan to consult ENT in the AM. Meena Khalil MD PGY-2 Obstetrics & Gynecology APPLIANCE REPAIRER 08/28/2024 - 30w6d - Anastasia Sheppard MD Antepartum Progress Note Gestational Age: 30w6d Admission Date: 07/29/2024 Length of stay: 30 Admission Diagnosis: preeclampsia with severe features otherwise affected by: Shay twins, Twin B with aortic root dilation and lateral ventriculomegaly, chronic headaches, Rh neg, dep/anxiety INTERVAL EVENTS - NAEON - normotensive with 2x MR BP - due for labs today, in process SUBJECTIVE - good movement x2, no LOF, VB, CTX Denies SHIPLEY, vision changes, SOB, chest pain, RUQ pain, new swelling changes. Review of Systems Negative except as per above OBJECTIVE Vitals: Temp: [36.6 ??C (97.8 ??F)-36.8 ??C (98.3 ??F)] 36.8 ??C (98.3 ??F) Pulse: [88-121] 88 Resp: [16-18] 16 BP: (130-135)/(84-97) 135/86 FHR: reactive NST x2 [place]: no regular contractions Physical Exam General: No acute distress. Lungs: Non-labored. Abdomen: Deferred Extremities: Warm and well-perfused. No bilateral lower extremity calf tenderness. Trace non pitting lower extremity edema Pelvic: Deferred. Neurologic: Deferred Lab Review: Recent Labs Lab Units 08/25/24 0619 08/22/24 0602 WBC K/cumm 10.5* 12.2* HEMOGLOBIN g/dL 11.4* 11.8* HEMATOCRIT % 33.4* 34.4* PLATELETS K/cumm 299 277 Recent Labs Lab Units 08/25/24 0619 08/22/24 0602 SODIUM mmol/L 139 138 POTASSIUM PLASMA mmol/L 3.5 3.7 CHLORIDE mmol/L 105 104 CO2 mmol/L 22 23 ANIONGAP mmol/L 12 11 GLUCOSE mg/dL 70 72 BUN SERUM mg/dL 6 7 CREATININE mg/dL 0.53* 0.53* CALCIUM mg/dL 9.2 9.3 ALBUMIN g/dL 3.2* 3.2* ALK PHOS Units/L 92 90 ALT Units/L 22 19 AST Units/L 22 18 BILIRUBIN TOTAL mg/dL 0.2 0.2 ASSESSMENT/PLAN 29 y.o. at 30w6d a/f preeclampsia with SF #PreE w/SF - Dx based on newly elevated blood pressures requiring IV meds - presented to OSH with sustained severe range BP requiring L20 - Given 4g Mg bolus prior to transfer - BPs normotensive to mild range on admission - Admission labs CBC Hgb 11.4 Plt 278 /CMP Cr 0.56 AST 21 ALT 19/UPC 0.122 - Home regimen: None - 24 hr spotting: none - s/p Mag (stopped 07/29) due to stability - APLS: Lupus AC, Beta2 glycoprotein IgM/IgG, cardiolipin IgG.IgM negative 08/04 Plan: - NXL 90mg (^08/01) - q72h CBC/CMP, T&S - del by 34 weeks, 09/19 IOL @ 0530 #sinus tachycardia, intermittent - 08/04 episode of tachycardia to 130-140s - EKG with sinus tachycardia x2 - asymptomatic, negative exam - neg RVP - Ddimer [address] PE negative (obtained per YEARS criteria) - suspect recent activity plus possible reflex tachycardia from NXL - if persistent, change NXL to labetalol 200 TID and uptitrate for BP control - Thyroid studies WNL #Chronic headaches - Hx SHIPLEY inside and outside of , previously on nortriptyline prior to - Presenting headache feels like prior episodes - Intermittent mild headache responsive to APAP and reglan - takes nortriptyline outside of , discussed restarting if persistent headache and acceptable safety profile in - headaches improved with ear ache treatment as separate problem - If headaches resume, consider magnesium/riboflavin #ear ache/fullness - exam 08/19 with no e/o infection, mild erythema without bulging or purulence behind tympanic membrane - flonase spray, mucinex, debrox drops - if does not improve, repeat ear exam and consider antibiotics #Aortic dilation of Fetus B - 07/27 Fetus A: Ascending/isthmus of aorta is mildly enlarged today on imaging. Aortic valve size measures within normal limits and peak systolic velocity measurements are within normal limits. Difficult to assess if aortic valve is bi or tri-leaflet. - echo Twin A 08/03: WNL - echo Twin B 08/03: mildly dilated ascending aorta (0.75cm) (same as previous scan but twins moved positions) - s/p cardiology consult - plan for echo of twin B prior to discharge #lateral ventriculomegaly of twin B fUS 08/09: Twin A: vertex, normal MVP, Twin B: vertex, normal MVP, mild left sided ventriculomegaly, right difficult to visualize. - s/p NICU consult 08/10 #Depression/ Anxiety - Previously on SSRI, stable mood this with no meds #MO -BMI 47 #FWB: #Shay TIUP - BSUS Vertex/Vertex - Genetic screening: LR NIPT, neg carrier screening - Anatomy US: Shay Twins, no evidence of TAPS or TTTS - fUS 07/27: Twin 1 1348g (11%ile), Twin 2 1784g (79%ile), Discordant 25 %. AGA of both twins. Lateral ventriculomegaly twin B, for formal anatomy US with us - fUS 08/09: Twin A: vertex, normal MVP, Twin B: vertex, normal MVP, mild left sided ventriculomegaly. No evidence of TTTS - fUS 08/16: A transverse, normal MVP, present bladder; twin B vertex, normal MVP, normal bladder. UA MCA dopplers WNL no e/o TTTS/TAPS - BMZ^07/30 @2330 - Mg stopped 07/29 - PCN deferred - S/p peds consult 08/10 - MONITORING PLAN: dNST - Shay screeening ultrasound: growth due 09/21, TTTS/TAPS screen 09/08 #MWB #VZV equivocal #Rh negative - PNL: Rh Neg/Ab Neg/HIV NR/Rub Imm/RPR NR/HepB NR/GC/CT Not obtained/VZV Equiv - 1 hr GTT early 82 - 1hr GTT 106 - 3T HIV /RPR NR - s/p flu vax 07/12, Tdap 08/09 - RSV at 32 wk (09/05) - Rhogam 08/01 - GBS neg 08/01 - MOD: TBD, IOL 09/19 @ 0530 - MOF: breast - MOC: nexplanon - AC: BID ppx lovenox Anastasia Plaza MD 08/28/24 Cosigned by Kaela Mcallister MD at 08/28/2024 7:37 AM GAS APPLIANCE REPAIRER APPLIANCE REPAIRER APPLIANCE REPAIRER Associated attestation - Kaela Mcallister MD - 08/28/2024 7:37 AM GAS APPLIANCE REPAIRER I have seen and examined the patient on 08/28/24. I agree with the findings and plan of care as documented in the resident's/fellow's note.. 08/27/2024 - 30w5d - Anastasia Sheppard MD Antepartum Progress Note Gestational Age: 30w5d Admission Date: 07/29/2024 Length of stay: 29 Admission Diagnosis: preeclampsia with severe features otherwise affected by: Shay twins, Twin B with aortic root dilation and lateral ventriculomegaly, chronic headaches, Rh neg, dep/anxiety INTERVAL EVENTS - NAEON - normotensive with 1 MR BP SUBJECTIVE - good movement x2, no LOF, VB, CTX Denies SHIPLEY, vision changes, SOB, chest pain, RUQ pain, new swelling changes. Review of Systems Negative except as per above OBJECTIVE Vitals: Temp: [36.7 ??C (98 ??F)-37.1 ??C (98.7 ??F)] 36.7 ??C (98 ??F) Pulse: [95-112] 95 Resp: [16-18] 18 BP: (125-135)/(69-93) 127/84 FHR: reactive NST x2 [place]: no regular contractions Physical Exam General: No acute distress. Lungs: Non-labored. Abdomen: Deferred Extremities: Warm and well-perfused. No bilateral lower extremity calf tenderness. Trace non pitting lower extremity edema Pelvic: Deferred. Neurologic: Deferred Lab Review: Recent Labs Lab Units 08/25/24 0619 08/22/24 0602 WBC K/cumm 10.5* 12.2* HEMOGLOBIN g/dL 11.4* 11.8* HEMATOCRIT % 33.4* 34.4* PLATELETS K/cumm 299 277 Recent Labs Lab Units 08/25/24 0619 08/22/24 0602 SODIUM mmol/L 139 138 POTASSIUM PLASMA mmol/L 3.5 3.7 CHLORIDE mmol/L 105 104 CO2 mmol/L 22 23 ANIONGAP mmol/L 12 11 GLUCOSE mg/dL 70 72 BUN SERUM mg/dL 6 7 CREATININE mg/dL 0.53* 0.53* CALCIUM mg/dL 9.2 9.3 ALBUMIN g/dL 3.2* 3.2* ALK PHOS Units/L 92 90 ALT Units/L 22 19 AST Units/L 22 18 BILIRUBIN TOTAL mg/dL 0.2 0.2 ASSESSMENT/PLAN 29 y.o. at 30w5d a/f preeclampsia with SF #PreE w/SF - Dx based on newly elevated blood pressures requiring IV meds - presented to OSH with sustained severe range BP requiring L20 - Given 4g Mg bolus prior to transfer - BPs normotensive to mild range on admission - Admission labs CBC Hgb 11.4 Plt 278 /CMP Cr 0.56 AST 21 ALT 19/UPC 0.122 - Home regimen: None - 24 hr spotting: none - s/p Mag (stopped 07/29) due to stability - APLS: Lupus AC, Beta2 glycoprotein IgM/IgG, cardiolipin IgG.IgM negative 08/04 Plan: - NXL 90mg (^08/01) - q72h CBC/CMP, T&S - del by 34 weeks, 09/19 IOL @ 0530 #sinus tachycardia, intermittent - 08/04 episode of tachycardia to 130-140s - EKG with sinus tachycardia x2 - asymptomatic, negative exam - neg RVP - Ddimer [address] PE negative (obtained per YEARS criteria) - suspect recent activity plus possible reflex tachycardia from NXL - if persistent, change NXL to labetalol 200 TID and uptitrate for BP control - Thyroid studies WNL #Chronic headaches - Hx SHIPLEY inside and outside of , previously on nortriptyline prior to - Presenting headache feels like prior episodes - Intermittent mild headache responsive to APAP and reglan - takes nortriptyline outside of , discussed restarting if persistent headache and acceptable safety profile in - headaches improved with ear ache treatment as separate problem - If headaches resume, consider magnesium/riboflavin #ear ache/fullness - exam 08/19 with no e/o infection, mild erythema without bulging or purulence behind tympanic membrane - flonase spray, mucinex, debrox drops - if does not improve, repeat ear exam and consider antibiotics #Aortic dilation of Fetus B - 07/27 Fetus A: Ascending/isthmus of aorta is mildly enlarged today on imaging. Aortic valve size measures within normal limits and peak systolic velocity measurements are within normal limits. Difficult to assess if aortic valve is bi or tri-leaflet. - echo Twin A 08/03: WNL - echo Twin B 08/03: mildly dilated ascending aorta (0.75cm) (same as previous scan but twins moved positions) - s/p cardiology consult - plan for echo of twin B prior to discharge #lateral ventriculomegaly of twin B fUS 08/09: Twin A: vertex, normal MVP, Twin B: vertex, normal MVP, mild left sided ventriculomegaly, right difficult to visualize. - s/p NICU consult 08/10 #Depression/ Anxiety - Previously on SSRI, stable mood this with no meds #MO -BMI 47 #FWB: #Shay TIUP - BSUS Vertex/Vertex - Genetic screening: LR NIPT, neg carrier screening - Anatomy US: Shay Twins, no evidence of TAPS or TTTS - fUS 07/27: Twin 1 1348g (11%ile), Twin 2 1784g (79%ile), Discordant 25 %. AGA of both twins. Lateral ventriculomegaly twin B, for formal anatomy US with us - fUS 08/09: Twin A: vertex, normal MVP, Twin B: vertex, normal MVP, mild left sided ventriculomegaly. No evidence of TTTS - fUS 08/16: A transverse, normal MVP, present bladder; twin B vertex, normal MVP, normal bladder. UA MCA dopplers WNL no e/o TTTS/TAPS - BMZ^07/30 @2330 - Mg stopped 07/29 - PCN deferred - S/p peds consult 08/10 - MONITORING PLAN: dNST - Shay screeening ultrasound: growth due 09/21, TTTS/TAPS screen 09/08 #MWB #VZV equivocal #Rh negative - PNL: Rh Neg/Ab Neg/HIV NR/Rub Imm/RPR NR/HepB NR/GC/CT Not obtained/VZV Equiv - 1 hr GTT early 82 - 1hr GTT 106 - 3T HIV /RPR NR - s/p flu vax 07/12, Tdap 08/09 - RSV at 32 wk (09/05) - Rhogam 08/01 - GBS neg 08/01 - MOD: TBD, IOL 09/19 @ 0530 - MOF: breast - MOC: nexplanon - AC: BID ppx lovenox Anastasia Plaza MD 08/27/24 Cosigned by Kaela Mcallister MD at 08/27/2024 8:46 AM GAS APPLIANCE REPAIRER APPLIANCE REPAIRER APPLIANCE REPAIRER Associated attestation - Kaela Mcallister MD - 08/27/2024 8:46 AM GAS APPLIANCE REPAIRER I have seen and examined the patient on 08/27/24. I agree with the findings and plan of care as documented in the resident's/fellow's note.. 08/26/2024 - 30w4d - Maureen Clark MD Antepartum Progress Note Gestational Age: 30w4d Admission Date: 07/29/2024 Length of stay: 28 Admission Diagnosis: preeclampsia with severe features otherwise affected by: Shay twins, Twin B with aortic root dilation and lateral ventriculomegaly, chronic headaches, Rh neg, dep/anxiety INTERVAL EVENTS - NAEON - normotensive to approx 50% mild range SUBJECTIVE - good movement x2, no LOF, VB, CTX Denies SHIPLEY, vision changes, SOB, chest pain, RUQ pain, new swelling changes. Review of Systems Negative except as per above OBJECTIVE Vitals: Temp: [36.7 ??C (98 ??F)-37 ??C (98.6 ??F)] 36.7 ??C (98 ??F) Pulse: [90-110] 103 Resp: [16-18] 16 BP: (124-138)/(74-92) 127/82 FHR: reactive NST x2 [place]: no regular contractions Physical Exam General: No acute distress. Lungs: Non-labored. Abdomen: Deferred Extremities: Warm and well-perfused. No bilateral lower extremity calf tenderness. Trace non pitting lower extremity edema Pelvic: Deferred. Neurologic: Deferred Lab Review: Recent Labs Lab Units 08/25/24 0619 08/22/24 0602 WBC K/cumm 10.5* 12.2* HEMOGLOBIN g/dL 11.4* 11.8* HEMATOCRIT % 33.4* 34.4* PLATELETS K/cumm 299 277 Recent Labs Lab Units 08/25/24 0619 08/22/24 0602 SODIUM mmol/L 139 138 POTASSIUM PLASMA mmol/L 3.5 3.7 CHLORIDE mmol/L 105 104 CO2 mmol/L 22 23 ANIONGAP mmol/L 12 11 GLUCOSE mg/dL 70 72 BUN SERUM mg/dL 6 7 CREATININE mg/dL 0.53* 0.53* CALCIUM mg/dL 9.2 9.3 ALBUMIN g/dL 3.2* 3.2* ALK PHOS Units/L 92 90 ALT Units/L 22 19 AST Units/L 22 18 BILIRUBIN TOTAL mg/dL 0.2 0.2 ASSESSMENT/PLAN 29 y.o. at 30w4d a/f preeclampsia with SF #PreE w/SF - Dx based on newly elevated blood pressures requiring IV meds - presented to OSH with sustained severe range BP requiring L20 - Given 4g Mg bolus prior to transfer - BPs normotensive to mild range on admission - Admission labs CBC Hgb 11.4 Plt 278 /CMP Cr 0.56 AST 21 ALT 19/UPC 0.122 - Home regimen: None - 24 hr spotting: none - s/p Mag (stopped 07/29) due to stability - APLS: Lupus AC, Beta2 glycoprotein IgM/IgG, cardiolipin IgG.IgM negative 08/04 Plan: - NXL 90mg (^08/01) - q72h CBC/CMP, T&S - del by 34 weeks, 09/19 IOL @ 0530 #sinus tachycardia, intermittent - 08/04 episode of tachycardia to 130-140s - EKG with sinus tachycardia x2 - asymptomatic, negative exam - neg RVP - Ddimer [address] PE negative (obtained per YEARS criteria) - suspect recent activity plus possible reflex tachycardia from NXL - if persistent, change NXL to labetalol 200 TID and uptitrate for BP control - Thyroid studies WNL #Chronic headaches - Hx SHIPLEY inside and outside of , previously on nortriptyline prior to - Presenting headache feels like prior episodes - Intermittent mild headache responsive to APAP and reglan - takes nortriptyline outside of , discussed restarting if persistent headache and acceptable safety profile in - headaches improved with ear ache treatment as separate problem - If headaches resume, consider magnesium/riboflavin #ear ache/fullness - exam 08/19 with no e/o infection, mild erythema without bulging or purulence behind tympanic membrane - flonase spray, mucinex, debrox drops - if does not improve, repeat ear exam and consider antibiotics #Aortic dilation of Fetus B - 07/27 Fetus A: Ascending/isthmus of aorta is mildly enlarged today on imaging. Aortic valve size measures within normal limits and peak systolic velocity measurements are within normal limits. Difficult to assess if aortic valve is bi or tri-leaflet. - echo Twin A 08/03: WNL - echo Twin B 08/03: mildly dilated ascending aorta (0.75cm) (same as previous scan but twins moved positions) - s/p cardiology consult - plan for echo of twin B prior to discharge #lateral ventriculomegaly of twin B fUS 08/09: Twin A: vertex, normal MVP, Twin B: vertex, normal MVP, mild left sided ventriculomegaly, right difficult to visualize. - s/p NICU consult 08/10 #Depression/ Anxiety - Previously on SSRI, stable mood this with no meds #MO -BMI 47 #FWB: #Shay TIUP - BSUS Vertex/Vertex - Genetic screening: LR NIPT, neg carrier screening - Anatomy US: Shay Twins, no evidence of TAPS or TTTS - fUS 07/27: Twin 1 1348g (11%ile), Twin 2 1784g (79%ile), Discordant 25 %. AGA of both twins. Lateral ventriculomegaly twin B, for formal anatomy US with us - fUS 08/09: Twin A: vertex, normal MVP, Twin B: vertex, normal MVP, mild left sided ventriculomegaly. No evidence of TTTS - fUS 08/16: A transverse, normal MVP, present bladder; twin B vertex, normal MVP, normal bladder. UA MCA dopplers WNL no e/o TTTS/TAPS - BMZ^07/30 @2330 - Mg stopped 07/29 - PCN deferred - S/p peds consult 08/10 - MONITORING PLAN: dNST - Shay screeening ultrasound: growth due 09/21, TTTS/TAPS screen 09/08 #MWB #VZV equivocal #Rh negative - PNL: Rh Neg/Ab Neg/HIV NR/Rub Imm/RPR NR/HepB NR/GC/CT Not obtained/VZV Equiv - 1 hr GTT early 82 - 1hr GTT 106 - 3T HIV /RPR NR - s/p flu vax 07/12, Tdap 08/09 - RSV at 32 wk (09/05) - Rhogam 08/01 - GBS neg 08/01 - MOD: TBD, IOL 09/19 @ 0530 - MOF: breast - MOC: nexplanon - AC: BID ppx lovenox Maureen Calix MD 08/26/24 Cosigned by Byron Lakhani MD at 08/26/2024 1:03 PM GAS APPLIANCE REPAIRER APPLIANCE REPAIRER APPLIANCE REPAIRER Associated attestation - Byron Lakhani MD - 08/26/2024 1:03 PM GAS APPLIANCE REPAIRER I have seen and examined the patient on 08/26/24. I agree with the findings and plan of care as documented in the resident's/fellow's note.. 08/25/2024 - 30w3d - Anastasia Sheppard MD Antepartum Progress Note Gestational Age: 30w3d Admission Date: 07/29/2024 Length of stay: 27 Admission Diagnosis: preeclampsia with severe features otherwise affected by: Shay twins, Twin B with aortic root dilation and lateral ventriculomegaly, chronic headaches, Rh neg, dep/anxiety INTERVAL EVENTS - NAEON - normotensive with occasional MR - fUS yesterday with growth discordance 25%, presenting twin is larger. Shay screen unremarkable SUBJECTIVE - good movement x2, no LOF, VB, CTX Denies SHIPLEY, vision changes, SOB, chest pain, RUQ pain, new swelling changes. SHIPLEY improved with meds for earache Excited for growth ultrasound today Review of Systems Negative except as per above OBJECTIVE Vitals: Temp: [36.5 ??C (97.7 ??F)-36.7 ??C (98.1 ??F)] 36.5 ??C (97.7 ??F) Pulse: [93-110] 110 Resp: [17-18] 18 BP: (129-139)/(81-90) 130/90 FHR: reactive NST x2 [place]: no regular contractions Physical Exam General: No acute distress. Lungs: Non-labored. Abdomen: Deferred Extremities: Warm and well-perfused. No bilateral lower extremity calf tenderness. Trace non pitting lower extremity edema Pelvic: Deferred. Neurologic: Deferred Lab Review: Recent Labs Lab Units 08/25/24 0619 08/22/24 0602 08/19/24 0625 WBC K/cumm 10.5* 12.2* 11.2* HEMOGLOBIN g/dL 11.4* 11.8* 11.3* HEMATOCRIT % 33.4* 34.4* 33.9* PLATELETS K/cumm 299 277 249 Recent Labs Lab Units 08/25/24 0619 08/22/24 0602 08/19/24 0625 SODIUM mmol/L 139 138 138 POTASSIUM PLASMA mmol/L 3.5 3.7 3.7 CHLORIDE mmol/L 105 104 105 CO2 mmol/L 22 23 23 ANIONGAP mmol/L 12 11 10 GLUCOSE mg/dL 70 72 68* BUN SERUM mg/dL 6 7 7 CREATININE mg/dL 0.53* 0.53* 0.54* CALCIUM mg/dL 9.2 9.3 9.3 ALBUMIN g/dL 3.2* 3.2* 3.0* ALK PHOS Units/L 92 90 88 ALT Units/L 22 19 13 AST Units/L 22 18 18 BILIRUBIN TOTAL mg/dL 0.2 0.2 0.2 ASSESSMENT/PLAN 29 y.o. at 30w3d a/f preeclampsia with SF #PreE w/SF - Dx based on newly elevated blood pressures requiring IV meds - presented to OSH with sustained severe range BP requiring L20 - Given 4g Mg bolus prior to transfer - BPs normotensive to mild range on admission - Admission labs CBC Hgb 11.4 Plt 278 /CMP Cr 0.56 AST 21 ALT 19/UPC 0.122 - Home regimen: None - 24 hr spotting: none - s/p Mag (stopped 07/29) due to stability - APLS: Lupus AC, Beta2 glycoprotein IgM/IgG, cardiolipin IgG.IgM negative 08/04 Plan: - NXL 90mg (^08/01) - q72h CBC/CMP, T&S - del by 34 weeks, 09/19 IOL @ 0530 #sinus tachycardia, intermittent - 08/04 episode of tachycardia to 130-140s - EKG with sinus tachycardia x2 - asymptomatic, negative exam - neg RVP - Ddimer [address] PE negative (obtained per YEARS criteria) - suspect recent activity plus possible reflex tachycardia from NXL - if persistent, change NXL to labetalol 200 TID and uptitrate for BP control - Thyroid studies WNL #Chronic headaches - Hx SHIPLEY inside and outside of , previously on nortriptyline prior to - Presenting headache feels like prior episodes - Intermittent mild headache responsive to APAP and reglan - takes nortriptyline outside of , discussed restarting if persistent headache and acceptable safety profile in - If headaches resume, consider magnesium/riboflavin #ear ache/fullness - exam 08/19 with no e/o infection, mild erythema without bulging or purulence behind tympanic membrane - flonase spray, mucinex, debrox drops - if does not improve, repeat ear exam and consider antibiotics #Aortic dilation of Fetus B - 07/27 Fetus A: Ascending/isthmus of aorta is mildly enlarged today on imaging. Aortic valve size measures within normal limits and peak systolic velocity measurements are within normal limits. Difficult to assess if aortic valve is bi or tri-leaflet. - echo Twin A 08/03: WNL - echo Twin B 08/03: mildly dilated ascending aorta (0.75cm) (same as previous scan but twins moved positions) - s/p cardiology consult - plan for echo of twin B prior to discharge #lateral ventriculomegaly of twin B fUS 08/09: Twin A: vertex, normal MVP, Twin B: vertex, normal MVP, mild left sided ventriculomegaly, right difficult to visualize. - s/p NICU consult 08/10 #Depression/ Anxiety - Previously on SSRI, stable mood this #MO -BMI 47 #FWB: #Shay TIUP - BSUS Vertex/Vertex - Genetic screening: LR NIPT, neg carrier screening - Anatomy US: Shay Twins, no evidence of TAPS or TTTS - fUS 07/27: Twin 1 1348g (11%ile), Twin 2 1784g (79%ile), Discordant 25 %. AGA of both twins. Lateral ventriculomegaly twin B, for formal anatomy US with us - fUS 08/09: Twin A: vertex, normal MVP, Twin B: vertex, normal MVP, mild left sided ventriculomegaly. No evidence of TTTS - fUS 08/16: A transverse, normal MVP, present bladder; twin B vertex, normal MVP, normal bladder. UA MCA dopplers WNL no e/o TTTS/TAPS - BMZ^07/30 @2330 - Mg stopped 07/29 - PCN deferred - S/p peds consult 08/10 - MONITORING PLAN: dNST - Shay screeening ultrasound: next due 09/07 #MWB #VZV equivocal #Rh negative - PNL: Rh Neg/Ab Neg/HIV NR/Rub Imm/RPR NR/HepB NR/GC/CT Not obtained/VZV Equiv - 1 hr GTT early 82 - 1hr GTT 106 - 3T HIV /RPR NR - s/p flu vax 07/12, Tdap 08/09 - RSV at 32 wk (09/05) - Rhogam 08/01 - GBS neg 08/01 - MOD: TBD, IOL 09/19 @ 0530 - MOF: breast - MOC: nexplanon - AC: BID ppx lovenox Anastasia Plaza MD 08/25/24 Cosigned by Byron Lakhani MD at 08/25/2024 10:24 AM GAS APPLIANCE REPAIRER APPLIANCE REPAIRER APPLIANCE REPAIRER Associated attestation - Byron Lakhani MD - 08/25/2024 10:24 AM GAS APPLIANCE REPAIRER I have seen and examined the patient on 08/25/24. I agree with the findings and plan of care as documented in the resident's/fellow's note.. 08/24/2024 - 30w2d - Maureen Clark MD Antepartum Progress Note Gestational Age: 30w2d Admission Date: 07/29/2024 Length of stay: 26 Admission Diagnosis: preeclampsia with severe features otherwise affected by: Shay twins, Twin B with aortic root dilation and lateral ventriculomegaly, chronic headaches, Rh neg, dep/anxiety INTERVAL EVENTS - NAEON - normotensive to MR SUBJECTIVE - good movement x2, no LOF, VB, CTX Denies SHIPLEY, vision changes, SOB, chest pain, RUQ pain, new swelling changes. SHIPLEY improved with meds for earache Excited for growth ultrasound today Review of Systems Negative except as per above OBJECTIVE Vitals: Temp: [36.5 ??C (97.7 ??F)-36.9 ??C (98.5 ??F)] 36.5 ??C (97.7 ??F) Pulse: [93-112] 93 Resp: [16-18] 18 BP: (129-142)/(79-95) 139/84 FHR: reactive NST x2 [place]: no regular contractions Physical Exam General: No acute distress. Lungs: Non-labored. Abdomen: Deferred Extremities: Warm and well-perfused. No bilateral lower extremity calf tenderness. Trace non pitting lower extremity edema Pelvic: Deferred. Neurologic: Deferred Lab Review: Recent Labs Lab Units 08/22/24 0602 08/19/24 0625 WBC K/cumm 12.2* 11.2* HEMOGLOBIN g/dL 11.8* 11.3* HEMATOCRIT % 34.4* 33.9* PLATELETS K/cumm 277 249 Recent Labs Lab Units 08/22/24 0602 08/19/24 0625 SODIUM mmol/L 138 138 POTASSIUM PLASMA mmol/L 3.7 3.7 CHLORIDE mmol/L 104 105 CO2 mmol/L 23 23 ANIONGAP mmol/L 11 10 GLUCOSE mg/dL 72 68* BUN SERUM mg/dL 7 7 CREATININE mg/dL 0.53* 0.54* CALCIUM mg/dL 9.3 9.3 ALBUMIN g/dL 3.2* 3.0* ALK PHOS Units/L 90 88 ALT Units/L 19 13 AST Units/L 18 18 BILIRUBIN TOTAL mg/dL 0.2 0.2 ASSESSMENT/PLAN 29 y.o. at 30w2d a/f preeclampsia with SF #PreE w/SF - Dx based on newly elevated blood pressures requiring IV meds - presented to OSH with sustained severe range BP requiring L20 - Given 4g Mg bolus prior to transfer - BPs normotensive to mild range on admission - Admission labs CBC Hgb 11.4 Plt 278 /CMP Cr 0.56 AST 21 ALT 19/UPC 0.122 - Home regimen: None - 24 hr spotting: none - s/p Mag (stopped 07/29) due to stability - APLS: Lupus AC, Beta2 glycoprotein IgM/IgG, cardiolipin IgG.IgM negative 08/04 Plan: - NXL 90mg (^08/01) - q72h CBC/CMP, T&S - del by 34 weeks, 09/19 IOL @ 0530 #sinus tachycardia, intermittent - 08/04 episode of tachycardia to 130-140s - EKG with sinus tachycardia x2 - asymptomatic, negative exam - neg RVP - Ddimer [address] PE negative (obtained per YEARS criteria) - suspect recent activity plus possible reflex tachycardia from NXL - if persistent, change NXL to labetalol 200 TID and uptitrate for BP control - Thyroid studies WNL #Chronic headaches - Hx SHIPLEY inside and outside of , previously on nortriptyline prior to - Presenting headache feels like prior episodes - Intermittent mild headache responsive to APAP and reglan - takes nortriptyline outside of , discussed restarting if persistent headache and acceptable safety profile in - If headaches resume, consider magnesium/riboflavin #ear ache/fullness - exam 08/19 with no e/o infection, mild erythema without bulging or purulence behind tympanic membrane - flonase spray, mucinex, debrox drops - if does not improve, repeat ear exam and consider antibiotics #Aortic dilation of Fetus B - 07/27 Fetus A: Ascending/isthmus of aorta is mildly enlarged today on imaging. Aortic valve size measures within normal limits and peak systolic velocity measurements are within normal limits. Difficult to assess if aortic valve is bi or tri-leaflet. - echo Twin A 08/03: WNL - echo Twin B 08/03: mildly dilated ascending aorta (0.75cm) (same as previous scan but twins moved positions) - s/p cardiology consult - plan for echo of twin B prior to discharge #lateral ventriculomegaly of twin B fUS 08/09: Twin A: vertex, normal MVP, Twin B: vertex, normal MVP, mild left sided ventriculomegaly, right difficult to visualize. - s/p NICU consult 08/10 #Depression/ Anxiety - Previously on SSRI, stable mood this #MO -BMI 47 #FWB: #Shay TIUP - BSUS Vertex/Vertex - Genetic screening: LR NIPT, neg carrier screening - Anatomy US: Shay Twins, no evidence of TAPS or TTTS - fUS 07/27: Twin A 1054g (79%ile), Twin B 847g (20%ile), Concordant 19.7 %. AGA of both twins. Lateral ventriculomegaly twin B, for formal anatomy US with us - fUS 08/09: Twin A: vertex, normal MVP, Twin B: vertex, normal MVP, mild left sided ventriculomegaly. No evidence of TTTS - fUS 08/16: A transverse, normal MVP, present bladder; twin B vertex, normal MVP, normal bladder. UA MCA dopplers WNL no e/o TTTS/TAPS - BMZ^07/30 @2330 - Mg stopped 07/29 - PCN deferred - S/p peds consult 08/10 - MONITORING PLAN: dNST - Shay screeening ultrasound: growth due 08/24, TTTS/TAPS screen 08/30 #MWB #VZV equivocal #Rh negative - PNL: Rh Neg/Ab Neg/HIV NR/Rub Imm/RPR NR/HepB NR/GC/CT Not obtained/VZV Equiv - 1 hr GTT early 82 - 1hr GTT 106 - 3T HIV /RPR NR - s/p flu vax 07/12/24, Tdap 08/09 - Rhogam 08/01 - GBS neg 08/01 - MOD: TBD, IOL 09/19 @ 0530 - MOF: breast - MOC: nexplanon - AC: BID ppx lovenox Nadiya Calix MD PhD Obstetrics & Gynecology - PGY 2 08/24/24 Antepartum Service Coverage Thursday through Thursday 8a-7p APU R2 (first call) [phone] APU R3 (chief) [phone] Evenings 7p-8am Weekend Thursday 6pm through Thursday 8am Labor R2 (first call) [phone] Labor R4 (chief) [phone] Cosigned by Byron Lakhani MD at 08/24/2024 9:37 AM GAS APPLIANCE REPAIRER APPLIANCE REPAIRER APPLIANCE REPAIRER Associated attestation - Byron Lakhani MD - 08/24/2024 9:37 AM GAS APPLIANCE REPAIRER I have seen and examined the patient on 08/24/24. I agree with the findings and plan of care as documented in the resident's/fellow's note.. 08/23/2024 - 30w1d - Anastasia Sheppard MD Antepartum Progress Note Gestational Age: 30w1d Admission Date: 07/29/2024 Length of stay: 25 Admission Diagnosis: preeclampsia with severe features otherwise affected by: Shay twins, Twin B with aortic root dilation and lateral ventriculomegaly, chronic headaches, Rh neg, dep/anxiety INTERVAL EVENTS - NAEON - normotensive to MR SUBJECTIVE - Resting comfortably Review of Systems Negative except as per above. OBJECTIVE Vitals: Temp: [36.4 ??C (97.6 ??F)-36.8 ??C (98.3 ??F)] 36.4 ??C (97.6 ??F) Pulse: [97-112] 106 Resp: [17-18] 17 BP: (128-139)/(78-90) 128/84 FHR: reactive NST x2 [place]: no regular contractions Physical Exam General: No acute distress. Lungs: Non-labored. Abdomen: Deferred Extremities: Warm and well-perfused. No bilateral lower extremity calf tenderness. Trace non pitting lower extremity edema Pelvic: Deferred. Neurologic: Deferred Lab Review: Recent Labs Lab Units 08/22/24 0602 08/19/24 0625 WBC K/cumm 12.2* 11.2* HEMOGLOBIN g/dL 11.8* 11.3* HEMATOCRIT % 34.4* 33.9* PLATELETS K/cumm 277 249 Recent Labs Lab Units 08/22/24 0602 08/19/24 0625 SODIUM mmol/L 138 138 POTASSIUM PLASMA mmol/L 3.7 3.7 CHLORIDE mmol/L 104 105 CO2 mmol/L 23 23 ANIONGAP mmol/L 11 10 GLUCOSE mg/dL 72 68* BUN SERUM mg/dL 7 7 CREATININE mg/dL 0.53* 0.54* CALCIUM mg/dL 9.3 9.3 ALBUMIN g/dL 3.2* 3.0* ALK PHOS Units/L 90 88 ALT Units/L 19 13 AST Units/L 18 18 BILIRUBIN TOTAL mg/dL 0.2 0.2 ASSESSMENT/PLAN 29 y.o. at 30w1d a/f preeclampsia with SF #PreE w/SF - Dx based on newly elevated blood pressures requiring IV meds - presented to OSH with sustained severe range BP requiring L20 - Given 4g Mg bolus prior to transfer - BPs normotensive to mild range on admission - Admission labs CBC Hgb 11.4 Plt 278 /CMP Cr 0.56 AST 21 ALT 19/UPC 0.122 - Home regimen: None - 24 hr spotting: none - s/p Mag (stopped 07/29) due to stability - APLS: Lupus AC, Beta2 glycoprotein IgM/IgG, cardiolipin IgG.IgM negative 08/04 Plan: - NXL 90mg (^08/01) - q72h CBC/CMP, T&S - del by 34 weeks, 09/19 IOL @ 0530 #sinus tachycardia, intermittent - 08/04 episode of tachycardia to 130-140s - EKG with sinus tachycardia x2 - asymptomatic, negative exam - neg RVP - Ddimer [address] PE negative (obtained per YEARS criteria) - suspect recent activity plus possible reflex tachycardia from NXL - if persistent, change NXL to labetalol 200 TID and uptitrate for BP control - Thyroid studies WNL #Chronic headaches - Hx SHIPLEY inside and outside of , previously on nortriptyline prior to - Presenting headache feels like prior episodes - Intermittent mild headache responsive to APAP and reglan - takes nortriptyline outside of , discussed restarting if persistent headache and acceptable safety profile in - If headaches resume, consider magnesium/riboflavin #ear ache/fullness - exam 08/19 with no e/o infection, mild erythema without bulging or purulence behind tympanic membrane - flonase spray, mucinex, debrox drops - if does not improve, repeat ear exam and consider antibiotics #Aortic dilation of Fetus B - 07/27 Fetus A: Ascending/isthmus of aorta is mildly enlarged today on imaging. Aortic valve size measures within normal limits and peak systolic velocity measurements are within normal limits. Difficult to assess if aortic valve is bi or tri-leaflet. - echo Twin A 08/03: WNL - echo Twin B 08/03: mildly dilated ascending aorta (0.75cm) (same as previous scan but twins moved positions) - s/p cardiology consult - plan for echo of twin B prior to discharge #lateral ventriculomegaly of twin B fUS 08/09: Twin A: vertex, normal MVP, Twin B: vertex, normal MVP, mild left sided ventriculomegaly, right difficult to visualize. - s/p NICU consult 08/10 #Depression/ Anxiety - Previously on SSRI, stable mood this #MO -BMI 47 #FWB: #Shay TIUP - BSUS Vertex/Vertex - Genetic screening: LR NIPT, neg carrier screening - Anatomy US: Shay Twins, no evidence of TAPS or TTTS - fUS 07/27: Twin A 1054g (79%ile), Twin B 847g (20%ile), Concordant 19.7 %. AGA of both twins. Lateral ventriculomegaly twin B, for formal anatomy US with us - fUS 08/09: Twin A: vertex, normal MVP, Twin B: vertex, normal MVP, mild left sided ventriculomegaly. No evidence of TTTS - fUS 08/16: A transverse, normal MVP, present bladder; twin B vertex, normal MVP, normal bladder. UA MCA dopplers WNL no e/o TTTS/TAPS - BMZ^07/30 @2330 - Mg stopped 07/29 - PCN deferred - S/p peds consult 08/10 - MONITORING PLAN: dNST - Shay screeening ultrasound: next due 08/30 #MWB #VZV equivocal #Rh negative - PNL: Rh Neg/Ab Neg/HIV NR/Rub Imm/RPR NR/HepB NR/GC/CT Not obtained/VZV Equiv - 1 hr GTT early 82 - 1hr GTT 106 - 3T HIV /RPR NR - s/p flu vax 07/12/24, Tdap 08/09 - Rhogam 08/01 - GBS neg 08/01 - MOD: TBD, IOL 09/19 @ 0530 - MOF: breast - MOC: nexplanon - AC: BID lovenox Anastasia Plaza MD 08/23/24 Antepartum Service Coverage Thursday through Thursday 8a-7p APU R2 (first call) [phone] APU R3 (chief) [phone] Evenings 7p-8am Weekend Thursday 6pm through Thursday 8am Labor R2 (first call) [phone] Labor R4 (chief) [phone] Cosigned by Byron Lakhani MD at 08/23/2024 9:19 AM GAS APPLIANCE REPAIRER APPLIANCE REPAIRER APPLIANCE REPAIRER Associated attestation - Byron Lakhani MD - 08/23/2024 9:19 AM GAS APPLIANCE REPAIRER I have seen and examined the patient on 08/23/24. I agree with the findings and plan of care as documented in the resident's/fellow's note.. 08/22/2024 - 30w0d - Marge Salguero RD Nutrition Screen Note Pt. Screened for nutritional assessment secondary to LOS Past Medical History: Diagnosis Date Anxiety GERD (gastroesophageal reflux disease) IBS (irritable bowel syndrome) Migraine headache Obesity Past Surgical History: Procedure Laterality Date CHOLECYSTECTOMY Anthropometrics Weight: 128.8 kg (284 lb) Admission Weight : 128.8 kg Weight Change: 0.00 kg (0.00 lbs) IBW/kg (Calculated) : 56.7 kg Height: 165.1 cm (5' 5 ) Weight in (lb) to have BMI = 25: 149.9 BMI (Calculated): 47.3 Adult Malnutrition Scoring Tool (MST) What diet do you follow at home?: regular Have You Recently Lost Weight Without Trying?: No Have you been eating poorly because of a decreased appetite?: Yes Malnutrition Screening Tool (MST) Score: 1 Dietary Orders (From admission, onward) Start Ordered 07/29/24 1220 Adult Diet Regular Diet effective now Question: ([facility]) Diet type Answer: Regular 07/29/24 1220 Assessment / Impression: Met with patient at bedside. She reported good appetite and PO intake. Recommend weekly weights. RD will continue to monitor. Marge Castro MS, RD, [facility], LD Cell APPLIANCE REPAIRER 08/22/2024 - 30w0d - Millie Pierce LCSW Reason for Admission Pt (Suki Kraft Edward 1995) was admitted on 07/29/2024 for Preeclampsia, unspecified trimester [O14.90]. Pt discussed in DCAM rounds with medical team. Per DCAM rounds, pt remains admitted to the APU due to ongoing medical needs. SW to follow for coping, adjustment to diagnosis as needed, and assess for social needs. ADD: delivery at 34 weeks, IOL 09/19 SW remains available. ARACELIS Tyler, HOPPER ATTENDANT [facility] Clinical [facility] APPLIANCE REPAIRER 08/22/2024 - 30w0d - Anastasia Sheppard MD Antepartum Progress Note Gestational Age: 30w0d Admission Date: 07/29/2024 Length of stay: 24 Admission Diagnosis: preeclampsia with severe features otherwise affected by: Shay twins, Twin B with aortic root dilation and lateral ventriculomegaly, chronic headaches, Rh neg, dep/anxiety INTERVAL EVENTS - NAEON - normotensive to MR - Tachycardic to high 120s, asymptomatic. EKG ordered SUBJECTIVE - Resting comfortably Review of Systems Negative except as per above. OBJECTIVE Vitals: Temp: [36.5 ??C (97.7 ??F)-36.7 ??C (98.1 ??F)] 36.7 ??C (98 ??F) Pulse: [96-127] 127 Resp: [16-18] 18 BP: (126-141)/(81-89) 134/89 FHR: reactive NST x2 [place]: no regular contractions Physical Exam General: No acute distress. Appears stated age and cooperative. Lungs: Non-labored. Abdomen: Soft, non-tender, gravid. Extremities: Warm and well-perfused. No bilateral lower extremity calf tenderness. Trace non pitting lower extremity edema Pelvic: Deferred. Neurologic: Alert and oriented x4, non-focal Lab Review: Recent Labs Lab Units 08/22/24 0602 08/19/24 0625 08/16/24 0615 WBC K/cumm 12.2* 11.2* 10.9* HEMOGLOBIN g/dL 11.8* 11.3* 11.6* HEMATOCRIT % 34.4* 33.9* 34.0* PLATELETS K/cumm 277 249 257 Recent Labs Lab Units 08/22/24 0602 08/19/24 0625 08/16/24 0615 SODIUM mmol/L 138 138 139 POTASSIUM PLASMA mmol/L 3.7 3.7 3.4 CHLORIDE mmol/L 104 105 105 CO2 mmol/L 23 23 23 ANIONGAP mmol/L 11 10 11 GLUCOSE mg/dL 72 68* 72 BUN SERUM mg/dL 7 7 8 CREATININE mg/dL 0.53* 0.54* 0.51* CALCIUM mg/dL 9.3 9.3 9.2 ALBUMIN g/dL 3.2* 3.0* 3.2* ALK PHOS Units/L 90 88 86 ALT Units/L 19 13 16 AST Units/L 18 18 16 BILIRUBIN TOTAL mg/dL 0.2 0.2 0.2 ASSESSMENT/PLAN 29 y.o. at 30w0d a/f preeclampsia with SF #PreE w/SF - Dx based on newly elevated blood pressures requiring IV meds - presented to OSH with sustained severe range BP requiring L20 - Given 4g Mg bolus prior to transfer - BPs normotensive to mild range on admission - Admission labs CBC Hgb 11.4 Plt 278 /CMP Cr 0.56 AST 21 ALT 19/UPC 0.122 - Home regimen: None - 24 hr spotting: none - s/p Mag (stopped 07/29) due to stability - APLS: Lupus AC, Beta2 glycoprotein IgM/IgG, cardiolipin IgG.IgM negative 08/04 Plan: - NXL 90mg (^08/01) - q72h CBC/CMP, T&S - del by 34 weeks, 09/19 IOL @ 0530 #sinus tachycardia, intermittent - 08/04 episode of tachycardia to 130-140s - EKG with sinus tachycardia x2 - asymptomatic, negative exam - neg RVP - Ddimer [address] PE negative (obtained per YEARS criteria) - suspect recent activity plus possible reflex tachycardia from NXL - if persistent, change NXL to labetalol 200 TID and uptitrate for BP control - Thyroid studies WNL #Chronic headaches - Hx SHIPLEY inside and outside of , previously on nortriptyline prior to - Presenting headache feels like prior episodes - Intermittent mild headache responsive to APAP and reglan - takes nortriptyline outside of , discussed restarting if persistent headache and acceptable safety profile in - If headaches resume, consider magnesium/riboflavin #ear ache/fullness - exam 08/19 with no e/o infection, mild erythema without bulging or purulence behind tympanic membrane - flonase spray, mucinex, debrox drops - if does not improve, repeat ear exam and consider antibiotics #Aortic dilation of Fetus B - 07/27 Fetus A: Ascending/isthmus of aorta is mildly enlarged today on imaging. Aortic valve size measures within normal limits and peak systolic velocity measurements are within normal limits. Difficult to assess if aortic valve is bi or tri-leaflet. - echo Twin A 08/03: WNL - echo Twin B 08/03: mildly dilated ascending aorta (0.75cm) (same as previous scan but twins moved positions) - s/p cardiology consult - plan for echo of twin B prior to discharge #lateral ventriculomegaly of twin B fUS 08/09: Twin A: vertex, normal MVP, Twin B: vertex, normal MVP, mild left sided ventriculomegaly, right difficult to visualize. - s/p NICU consult 08/10 #Depression/ Anxiety - Previously on SSRI, stable mood this #MO -BMI 47 #FWB: #Shay TIUP - BSUS Vertex/Vertex - Genetic screening: LR NIPT, neg carrier screening - Anatomy US: Shay Twins, no evidence of TAPS or TTTS - fUS 07/27: Twin A 1054g (79%ile), Twin B 847g (20%ile), Concordant 19.7 %. AGA of both twins. Lateral ventriculomegaly twin B, for formal anatomy US with us - fUS 08/09: Twin A: vertex, normal MVP, Twin B: vertex, normal MVP, mild left sided ventriculomegaly. No evidence of TTTS - fUS 08/16: A transverse, normal MVP, present bladder; twin B vertex, normal MVP, normal bladder. UA MCA dopplers WNL no e/o TTTS/TAPS - BMZ^07/30 @2330 - Mg stopped 07/29 - PCN deferred - S/p peds consult 08/10 - MONITORING PLAN: dNST - Shay screeening ultrasound: next due 08/30 #MWB #VZV equivocal #Rh negative - PNL: Rh Neg/Ab Neg/HIV NR/Rub Imm/RPR NR/HepB NR/GC/CT Not obtained/VZV Equiv - 1 hr GTT early 82 - 1hr GTT 106 - 3T HIV /RPR NR - s/p flu vax 07/12/24, Tdap 08/09 - Rhogam 08/01 - GBS neg 08/01 - MOD: TBD, IOL 09/19 @ 0530 - MOF: breast - MOC: nexplanon - AC: SOLITARIO vu Anastasia Plaza MD 08/22/24 Antepartum Service Coverage Thursday through Thursday 8a-7p APU R2 (first call) [phone] APU R3 (chief) [phone] Evenings 7p-8am Weekend Thursday 6pm through Thursday 8am Labor R2 (first call) [phone] Labor R4 (chief) [phone] Cosigned by Byron Lakhani MD at 08/22/2024 9:45 AM GAS APPLIANCE REPAIRER APPLIANCE REPAIRER APPLIANCE REPAIRER Associated attestation - Byron Lakhani MD - 08/22/2024 9:45 AM GAS APPLIANCE REPAIRER I have seen and examined the patient on 08/22/24. I agree with the findings and plan of care as documented in the resident's/fellow's note.. 08/21/2024 - 29w6d - Maureen Clark MD Antepartum Progress Note Gestational Age: 29w6d Admission Date: 07/29/2024 Length of stay: 23 Admission Diagnosis: preeclampsia with severe features otherwise affected by: Shay twins, Twin B with aortic root dilation and lateral ventriculomegaly, chronic headaches, Rh neg, dep/anxiety INTERVAL EVENTS - NAEON - normotensive to MR SUBJECTIVE Reports active movement x2. No vaginal bleeding/leakage of fluid/contractions. Denies SHIPLEY, vision changes, SOB, chest pain, RUQ pain, new swelling changes. Ear pressure getting better with flonase, mucinex Review of Systems Negative except as per above. OBJECTIVE Vitals: Temp: [36.6 ??C (97.9 ??F)-36.9 ??C (98.4 ??F)] 36.7 ??C (98 ??F) Pulse: [93-139] 93 Resp: [18] 18 BP: (131-138)/(84-91) 131/84 FHR: reactive NST x2 [place]: no regular contractions Physical Exam General: No acute distress. Appears stated age and cooperative. Lungs: Non-labored. Abdomen: Soft, non-tender, gravid. Extremities: Warm and well-perfused. No bilateral lower extremity calf tenderness. Trace non pitting lower extremity edema Pelvic: Deferred. Neurologic: Alert and oriented x4, non-focal Lab Review: Recent Labs Lab Units 08/19/24 0625 08/16/24 0615 WBC K/cumm 11.2* 10.9* HEMOGLOBIN g/dL 11.3* 11.6* HEMATOCRIT % 33.9* 34.0* PLATELETS K/cumm 249 257 Recent Labs Lab Units 08/19/24 0625 08/16/24 0615 08/14/24 1506 SODIUM mmol/L 138 139 -- POTASSIUM PLASMA mmol/L 3.7 3.4 -- CHLORIDE mmol/L 105 105 -- CO2 mmol/L 23 23 -- ANIONGAP mmol/L 10 11 -- GLUCOSE mg/dL 68* 72 -- POC GLUCOSE MONITOR mg/dL -- -- 103 BUN SERUM mg/dL 7 8 -- CREATININE mg/dL 0.54* 0.51* -- CALCIUM mg/dL 9.3 9.2 -- ALBUMIN g/dL 3.0* 3.2* -- ALK PHOS Units/L 88 86 -- ALT Units/L 13 16 -- AST Units/L 18 16 -- BILIRUBIN TOTAL mg/dL 0.2 0.2 -- ASSESSMENT/PLAN 29 y.o. at 29w6d a/f preeclampsia with SF #PreE w/SF - Dx based on newly elevated blood pressures requiring IV meds - presented to OSH with sustained severe range BP requiring L20 - Given 4g Mg bolus prior to transfer - BPs normotensive to mild range on admission - Admission labs CBC Hgb 11.4 Plt 278 /CMP Cr 0.56 AST 21 ALT 19/UPC 0.122 - Home regimen: None - 24 hr spotting: none - s/p Mag (stopped 07/29) due to stability - APLS: Lupus AC, Beta2 glycoprotein IgM/IgG, cardiolipin IgG.IgM negative 08/04 Plan: - NXL 90mg (^08/01) - q72h CBC/CMP, T&S - del by 34 weeks, 09/19 IOL @ 0530 #sinus tachycardia, intermittent - 08/04 episode of tachycardia to 130-140s - EKG with sinus tachycardia x2 - asymptomatic, negative exam - neg RVP - Ddimer [address] PE negative (obtained per YEARS criteria) - suspect recent activity plus possible reflex tachycardia from NXL - if persistent, change NXL to labetalol 200 TID and uptitrate for BP control - Thyroid studies WNL #Chronic headaches - Hx SHIPLEY inside and outside of , previously on nortriptyline prior to - Presenting headache feels like prior episodes - Intermittent mild headache responsive to APAP and reglan - takes nortriptyline outside of , discussed restarting if persistent headache and acceptable safety profile in - If headaches resume, consider magnesium/riboflavin #ear ache/fullness - exam 08/19 with no e/o infection, mild erythema without bulging or purulence behind tympanic membrane - flonase spray, mucinex, debrox drops - if does not improve, repeat ear exam and consider antibiotics #Aortic dilation of Fetus B - 07/27 Fetus A: Ascending/isthmus of aorta is mildly enlarged today on imaging. Aortic valve size measures within normal limits and peak systolic velocity measurements are within normal limits. Difficult to assess if aortic valve is bi or tri-leaflet. - echo Twin A 08/03: WNL - echo Twin B 08/03: mildly dilated ascending aorta (0.75cm) (same as previous scan but twins moved positions) - s/p cardiology consult - plan for echo of twin B prior to discharge #lateral ventriculomegaly of twin B fUS 08/09: Twin A: vertex, normal MVP, Twin B: vertex, normal MVP, mild left sided ventriculomegaly, right difficult to visualize. - s/p NICU consult 08/10 #Depression/ Anxiety - Previously on SSRI, stable mood this #MO -BMI 47 #FWB: #Shay TIUP - BSUS Vertex/Vertex - Genetic screening: LR NIPT, neg carrier screening - Anatomy US: Shay Twins, no evidence of TAPS or TTTS - fUS 07/27: Twin A 1054g (79%ile), Twin B 847g (20%ile), Concordant 19.7 %. AGA of both twins. Lateral ventriculomegaly twin B, for formal anatomy US with us - fUS 08/09: Twin A: vertex, normal MVP, Twin B: vertex, normal MVP, mild left sided ventriculomegaly. No evidence of TTTS - fUS 08/16: A transverse, normal MVP, present bladder; twin B vertex, normal MVP, normal bladder. UA MCA dopplers WNL no e/o TTTS/TAPS - BMZ^07/30 @2330 - Mg stopped 07/29 - PCN deferred - S/p peds consult 08/10 - MONITORING PLAN: dNST - Shay screeening ultrasound: next due 08/30 #MWB #VZV equivocal #Rh negative - PNL: Rh Neg/Ab Neg/HIV NR/Rub Imm/RPR NR/HepB NR/GC/CT Not obtained/VZV Equiv - 1 hr GTT early 82 - 1hr GTT 106 - 3T HIV /RPR NR - s/p flu vax 07/12/24, Tdap 08/09 - Rhogam 08/01 - GBS neg 08/01 - MOD: TBD, IOL 09/19 @ 0530 - MOF: breast - MOC: nexplanon Maureen Calix MD 08/21/24 Antepartum Service Coverage Thursday through Thursday 8a-7p APU R2 (first call) [phone] APU R3 (chief) [phone] Evenings 7p-8am Weekend Thursday 6pm through Thursday 8am Labor R2 (first call) [phone] Labor R4 (chief) [phone] Cosigned by Libby Berman MD at 08/21/2024 9:27 AM GAS APPLIANCE REPAIRER APPLIANCE REPAIRER APPLIANCE REPAIRER Associated attestation - Libby Berman MD - 08/21/2024 9:27 AM GAS APPLIANCE REPAIRER I have seen and examined the patient on 08/21/24. I agree with the findings and plan of care as documented in the resident's/fellow's note. and as discussed with the resident/fellow.. 08/20/2024 - 29w5d - Maureen Clark MD Antepartum Progress Note Gestational Age: 29w5d Admission Date: 07/29/2024 Length of stay: 22 Admission Diagnosis: preeclampsia with severe features otherwise affected by: Shay twins, Twin B with aortic root dilation and lateral ventriculomegaly, chronic headaches, Rh neg, dep/anxiety INTERVAL EVENTS - NAEON - normotensive with 1x mild range - ear exam with erythema but no e/o active infection, started flonase, mucinex, and debrox drops SUBJECTIVE Reports active movement x2. No vaginal bleeding/leakage of fluid/contractions. Denies SHIPLEY, vision changes, SOB, chest pain, RUQ pain, new swelling changes. Review of Systems Negative except as per above. OBJECTIVE Vitals: Temp: [36.6 ??C (97.8 ??F)-36.9 ??C (98.4 ??F)] 36.7 ??C (98 ??F) Pulse: [88-120] 97 Resp: [16-18] 18 BP: (127-140)/(80-88) 140/88 FHR: reactive NST x2 [place]: no regular contractions Physical Exam General: No acute distress. Appears stated age and cooperative. Lungs: Non-labored. Abdomen: Soft, non-tender, gravid. Extremities: Warm and well-perfused. No bilateral lower extremity calf tenderness. Trace non pitting lower extremity edema Pelvic: Deferred. Neurologic: Alert and oriented x4, non-focal Lab Review: Recent Labs Lab Units 08/19/24 0625 08/16/24 0615 WBC K/cumm 11.2* 10.9* HEMOGLOBIN g/dL 11.3* 11.6* HEMATOCRIT % 33.9* 34.0* PLATELETS K/cumm 249 257 Recent Labs Lab Units 08/19/24 0625 08/16/24 0615 08/14/24 1506 SODIUM mmol/L 138 139 -- POTASSIUM PLASMA mmol/L 3.7 3.4 -- CHLORIDE mmol/L 105 105 -- CO2 mmol/L 23 23 -- ANIONGAP mmol/L 10 11 -- GLUCOSE mg/dL 68* 72 -- POC GLUCOSE MONITOR mg/dL -- -- 103 BUN SERUM mg/dL 7 8 -- CREATININE mg/dL 0.54* 0.51* -- CALCIUM mg/dL 9.3 9.2 -- ALBUMIN g/dL 3.0* 3.2* -- ALK PHOS Units/L 88 86 -- ALT Units/L 13 16 -- AST Units/L 18 16 -- BILIRUBIN TOTAL mg/dL 0.2 0.2 -- ASSESSMENT/PLAN 29 y.o. at 29w5d a/f preeclampsia with SF #PreE w/SF - Dx based on newly elevated blood pressures requiring IV meds - presented to OSH with sustained severe range BP requiring L20 - Given 4g Mg bolus prior to transfer - BPs normotensive to mild range on admission - Admission labs CBC Hgb 11.4 Plt 278 /CMP Cr 0.56 AST 21 ALT 19/UPC 0.122 - Home regimen: None - 24 hr spotting: none - s/p Mag (stopped 07/29) due to stability - APLS: Lupus AC, Beta2 glycoprotein IgM/IgG, cardiolipin IgG.IgM negative 08/04 Plan: - NXL 90mg (^08/01) - q72h CBC/CMP, T&S - del by 34 weeks, 09/19 IOL @ 0530 #sinus tachycardia, intermittent - 08/04 episode of tachycardia to 130-140s - EKG with sinus tachycardia x2 - asymptomatic, negative exam - neg RVP - Ddimer [address] PE negative (obtained per YEARS criteria) - suspect recent activity plus possible reflex tachycardia from NXL - if persistent, change NXL to labetalol 200 TID and uptitrate for BP control - Thyroid studies WNL #Chronic headaches - Hx SHIPLEY inside and outside of , previously on nortriptyline prior to - Presenting headache feels like prior episodes - Intermittent mild headache responsive to APAP and reglan - takes nortriptyline outside of , discussed restarting if persistent headache and acceptable safety profile in - If headaches resume, consider magnesium/riboflavin #ear ache/fullness - exam 08/19 with no e/o infection, mild erythema without bulging or purulence behind tympanic membrane - flonase spray, mucinex, debrox drops - if does not improve, repeat ear exam and consider antibiotics #Aortic dilation of Fetus B - 07/27 Fetus A: Ascending/isthmus of aorta is mildly enlarged today on imaging. Aortic valve size measures within normal limits and peak systolic velocity measurements are within normal limits. Difficult to assess if aortic valve is bi or tri-leaflet. - echo Twin A 08/03: WNL - echo Twin B 08/03: mildly dilated ascending aorta (0.75cm) (same as previous scan but twins moved positions) - s/p cardiology consult - plan for echo of twin B prior to discharge #lateral ventriculomegaly of twin B fUS 08/09: Twin A: vertex, normal MVP, Twin B: vertex, normal MVP, mild left sided ventriculomegaly, right difficult to visualize. - s/p NICU consult 08/10 #Depression/ Anxiety - Previously on SSRI, stable mood this #MO -BMI 47 #FWB: #Shay TIUP - BSUS Vertex/Vertex - Genetic screening: LR NIPT, neg carrier screening - Anatomy US: Shay Twins, no evidence of TAPS or TTTS - fUS 07/27: Twin A 1054g (79%ile), Twin B 847g (20%ile), Concordant 19.7 %. AGA of both twins. Lateral ventriculomegaly twin B, for formal anatomy US with us - fUS 08/09: Twin A: vertex, normal MVP, Twin B: vertex, normal MVP, mild left sided ventriculomegaly. No evidence of TTTS - fUS 08/16: A transverse, normal MVP, present bladder; twin B vertex, normal MVP, normal bladder. UA MCA dopplers WNL no e/o TTTS/TAPS - BMZ^07/30 @2330 - Mg stopped 07/29 - PCN deferred - S/p peds consult 08/10 - MONITORING PLAN: dNST - Shay: next due 08/30 #MWB #VZV equivocal #Rh negative - PNL: Rh Neg/Ab Neg/HIV NR/Rub Imm/RPR NR/HepB NR/GC/CT Not obtained/VZV Equiv - 1 hr GTT early 82 - 1hr GTT 106 - 3T HIV /RPR NR - s/p flu vax 07/12/24, Tdap 08/09 - Rhogam 08/01 - GBS neg 08/01 - MOD: TBD, IOL 09/19 @ 0530 - MOF: breast - MOC: [email or web address] Maureen Calix MD 08/20/24 Antepartum Service Coverage Thursday through Thursday 8a-7p APU R2 (first call) [phone] APU R3 (chief) [phone] Evenings 7p-8am Weekend Thursday 6pm through Thursday 8am Labor R2 (first call) [phone] Labor R4 (chief) [phone] Cosigned by Leticia Barillas MD at 08/20/2024 7:16 AM GAS APPLIANCE REPAIRER APPLIANCE REPAIRER APPLIANCE REPAIRER Associated attestation - Leticia Barillas MD - 08/20/2024 7:16 AM GAS APPLIANCE REPAIRER I have personally seen and evaluated the patient, reviewed the documentation, and agree with the housestaff's assessment and plan. 08/19/2024 - - Anastasia Sheppard MD Antepartum Progress Note Gestational Age: 29w4d Admission Date: 07/29/2024 Length of stay: 21 Admission Diagnosis: preeclampsia with severe features otherwise complicated by: Shay twins, Twin B with aortic root dilation and lateral ventriculomegaly, chronic headaches, Rh neg, dep/anxiety INTERVAL EVENTS - NAEON - largely normotensive, occasional mild range SUBJECTIVE Feeling some L ear fullness, itchiness Reports active movement x2. No vaginal bleeding/leakage of fluid/contractions. Denies SHIPLEY, vision changes, SOB, chest pain, RUQ pain, new swelling changes. Review of Systems Negative except as per above. OBJECTIVE Vitals: Temp: [36.6 ??C (97.9 ??F)-36.8 ??C (98.2 ??F)] 36.6 ??C (97.9 ??F) Pulse: [88-120] 88 Resp: [18] 18 BP: (127-139)/(82-96) 127/82 FHR: reactive NST x2 [place]: no regular contractions Physical Exam General: No acute distress. Appears stated age and cooperative. Lungs: Non-labored. Abdomen: Soft, non-tender, gravid. Extremities: Warm and well-perfused. No bilateral lower extremity calf tenderness. Trace non pitting lower extremity edema Pelvic: Deferred. Neurologic: Alert and oriented x4, non-focal Lab Review: Recent Labs Lab Units 08/16/24 0615 08/13/24 0544 WBC K/cumm 10.9* 12.4* HEMOGLOBIN g/dL 11.6* 11.8* HEMATOCRIT % 34.0* 34.4* PLATELETS K/cumm 257 295 Recent Labs Lab Units 08/16/24 0615 08/14/24 1506 08/13/24 0544 SODIUM mmol/L 139 -- 137 POTASSIUM PLASMA mmol/L 3.4 -- 3.7 CHLORIDE mmol/L 105 -- 104 CO2 mmol/L 23 -- 22 ANIONGAP mmol/L 11 -- 11 GLUCOSE mg/dL 72 -- 74 POC GLUCOSE MONITOR mg/dL -- 103 -- BUN SERUM mg/dL 8 -- 8 CREATININE mg/dL 0.51* -- 0.49* CALCIUM mg/dL 9.2 -- 9.4 ALBUMIN g/dL 3.2* -- 3.3* ALK PHOS Units/L 86 -- 85 ALT Units/L 16 -- 21 AST Units/L 16 -- 19 BILIRUBIN TOTAL mg/dL 0.2 -- 0.3 ASSESSMENT/PLAN 29 y.o. at 29w2d a/f preeclampsia with SF #PreE w/SF - Dx based on newly elevated blood pressures requiring IV meds - presented to OSH with sustained severe range BP requiring L20 - Given 4g Mg bolus prior to transfer - BPs normotensive to mild range on admission - Admission labs CBC Hgb 11.4 Plt 278 /CMP Cr 0.56 AST 21 ALT 19/UPC 0.122 - Home regimen: None - 24 hr spotting: none - s/p Mag (stopped 07/29) due to stability - APLS: Lupus AC, Beta2 glycoprotein IgM/IgG, cardiolipin IgG.IgM negative 08/04 Plan: - NXL 90mg (^08/01) - q72h CBC/CMP, T&S - del by 34 weeks, 09/19 IOL @0530 #sinus tachycardia, intermittent - 08/04 episode of tachycardia to 130-140s - EKG with sinus tachycardia x2 - asymptomatic, negative exam - neg RVP - Ddimer [address] PE negative (obtained per YEARS criteria) - suspect recent activity plus possible reflex tachycardia from NXL - if persistent, change NXL to labetalol 200 TID and uptitrate for BP control - Thyroid studies WNL #Chronic headaches - Hx SHIPLEY inside and outside of , previously on nortriptyline prior to - Presenting headache feels like prior episodes - Intermittent mild headache responsive to APAP and reglan - takes nortriptyline outside of , discussed restarting if persistent headache and acceptable safety profile in - If headaches resume, consider magnesium/riboflavin #Aortic dilation of Fetus B - 07/27 Fetus A: Ascending/isthmus of aorta is mildly enlarged today on imaging. Aortic valve size measures within normal limits and peak systolic velocity measurements are within normal limits. Difficult to assess if aortic valve is bi or tri-leaflet. - echo Twin A 08/03: WNL - echo Twin B 08/03: mildly dilated ascending aorta (0.75cm) (same as previous scan but twins moved positions) - s/p cardiology consult - plan for echo of twin B prior to discharge #lateral ventriculomegaly of twin B fUS 08/09: Twin A: vertex, normal MVP, Twin B: vertex, normal MVP, mild left sided ventriculomegaly, right difficult to visualize. - s/p NICU consult 08/10 #Depression/ Anxiety - Previously on SSRI, stable mood this #MO -BMI 47 #FWB: #Shay TIUP - BSUS Vertex/Vertex - Genetic screening: LR NIPT, neg carrier screening - Anatomy US: Shay Twins, no evidence of TAPS or TTTS - fUS 07/27: Twin A 1054g (79%ile), Twin B 847g (20%ile), Concordant 19.7 %. AGA of both twins. Lateral ventriculomegaly twin B, for formal anatomy US with us - fUS 08/09: Twin A: vertex, normal MVP, Twin B: vertex, normal MVP, mild left sided ventriculomegaly. No evidence of TTTS - fUS 08/16: A transverse, normal MVP, present bladder; twin B vertex, normal MVP, normal bladder. UA MCA dopplers WNL no e/o TTTS/TAPS - BMZ^07/30 @2330 - Mg stopped 07/29 - PCN deferred - S/p peds consult 08/10 - MONITORING PLAN: dNST - Shay: next due 08/30 #MWB #VZV equivocal #Rh negative - PNL: Rh Neg/Ab Neg/HIV NR/Rub Imm/RPR NR/HepB NR/GC/CT Not obtained/VZV Equiv - 1 hr GTT early 82 - 1hr GTT 106 - 3T HIV /RPR NR - s/p flu vax 07/12/24, Tdap 08/09 - Rhogam 08/01 - GBS neg 08/01 - MOD: TBD, IOL 09/19 @ 0530 - MOF: breast - MOC: nexplanon Anastasia Plaza MD 08/19/24 Antepartum Service Coverage Thursday through Thursday 8a-7p APU R2 (first call) [phone] APU R3 (chief) [phone] Evenings 7p-8am Weekend Thursday 6pm through Thursday 8am Labor R2 (first call) [phone] Labor R4 (chief) [phone] Cosigned by Leticia Barillas MD at 08/19/2024 9:49 AM GAS APPLIANCE REPAIRER APPLIANCE REPAIRER APPLIANCE REPAIRER Associated attestation - Leticia Barillas MD - 08/19/2024 9:49 AM GAS APPLIANCE REPAIRER I have personally seen and evaluated the patient, reviewed the documentation, and agree with the housestaff's assessment and plan. 08/18/2024 - - Anastasia Sheppard MD Antepartum Progress Note Gestational Age: 29w3d Admission Date: 07/29/2024 Length of stay: 20 Admission Diagnosis: preeclampsia with severe features otherwise complicated by: Shay twins, Twin B with aortic root dilation and lateral ventriculomegaly, chronic headaches, Rh neg, dep/anxiety INTERVAL EVENTS - NAEON - largely normotensive, occasional mild range SUBJECTIVE No new problems. Reports active movement x2. No vaginal bleeding/leakage of fluid/contractions. Denies [place]IP[place], vision changes, SOB, chest pain, RUQ pain, new swelling changes. Review of Systems Negative except as per above. OBJECTIVE Vitals: Temp: [36.7 ??C (98 ??F)-37 ??C (98.6 ??F)] 36.8 ??C (98.3 ??F) Pulse: [93-131] 115 Resp: [16-118] 16 BP: (124-141)/(73-83) 124/81 FHR: reactive NST x2 [place]: no regular contractions Physical Exam General: No acute distress. Appears stated age and cooperative. Lungs: Non-labored. Abdomen: Soft, non-tender, gravid. Extremities: Warm and well-perfused. No bilateral lower extremity calf tenderness. Trace non pitting lower extremity edema Pelvic: Deferred. Neurologic: Alert and oriented x4, non-focal Lab Review: Recent Labs Lab Units 08/16/24 0615 08/13/24 0544 WBC K/cumm 10.9* 12.4* HEMOGLOBIN g/dL 11.6* 11.8* HEMATOCRIT % 34.0* 34.4* PLATELETS K/cumm 257 295 Recent Labs Lab Units 08/16/24 0615 08/14/24 1506 08/13/24 0544 SODIUM mmol/L 139 -- 137 POTASSIUM PLASMA mmol/L 3.4 -- 3.7 CHLORIDE mmol/L 105 -- 104 CO2 mmol/L 23 -- 22 ANIONGAP mmol/L 11 -- 11 GLUCOSE mg/dL 72 -- 74 POC GLUCOSE MONITOR mg/dL -- 103 -- BUN SERUM mg/dL 8 -- 8 CREATININE mg/dL 0.51* -- 0.49* CALCIUM mg/dL 9.2 -- 9.4 ALBUMIN g/dL 3.2* -- 3.3* ALK PHOS Units/L 86 -- 85 ALT Units/L 16 -- 21 AST Units/L 16 -- 19 BILIRUBIN TOTAL mg/dL 0.2 -- 0.3 ASSESSMENT/PLAN 29 y.o. at 29w2d a/f preeclampsia with SF #PreE w/SF - Dx based on newly elevated blood pressures requiring IV meds - presented to OSH with sustained severe range BP requiring L20 - Given 4g Mg bolus prior to transfer - BPs normotensive to mild range on admission - Admission labs CBC Hgb 11.4 Plt 278 /CMP Cr 0.56 AST 21 ALT 19/UPC 0.122 - Home regimen: None - 24 hr spotting: none - s/p Mag (stopped 07/29) due to stability - APLS: Lupus AC, Beta2 glycoprotein IgM/IgG, cardiolipin IgG.IgM negative 08/04 Plan: - NXL 90mg (^08/01) - q72h CBC/CMP, T&S - del by 34 weeks, 09/19 IOL @ 0530 #sinus tachycardia, intermittent - 08/04 episode of tachycardia to 130-140s - EKG with sinus tachycardia x2 - asymptomatic, negative exam - neg RVP - Ddimer 1100 > CT PE negative (obtained per YEARS criteria) - suspect recent activity plus possible reflex tachycardia from NXL - if persistent, change NXL to labetalol 200 TID and uptitrate for BP control - Thyroid studies WNL #Chronic headaches - Hx SHIPLEY inside and outside of , previously on nortriptyline prior to - Presenting headache feels like prior episodes - Intermittent mild headache responsive to APAP and reglan - takes nortriptyline outside of , discussed restarting if persistent headache and acceptable safety profile in - If headaches resume, consider magnesium/riboflavin #Aortic dilation of Fetus B - 07/27 Fetus A: Ascending/isthmus of aorta is mildly enlarged today on imaging. Aortic valve size measures within normal limits and peak systolic velocity measurements are within normal limits. Difficult to assess if aortic valve is bi or tri-leaflet. - echo Twin A 08/03: WNL - echo Twin B 08/03: mildly dilated ascending aorta (0.75cm) (same as previous scan but twins moved positions) - s/p cardiology consult - plan for echo of twin B prior to discharge #lateral ventriculomegaly of twin B fUS 08/09: Twin A: vertex, normal MVP, Twin B: vertex, normal MVP, mild left sided ventriculomegaly, right difficult to visualize. - s/p NICU consult 08/10 #Depression/ Anxiety - Previously on SSRI, stable mood this #MO -BMI 47 #FWB: #Shay TIUP - BSUS Vertex/Vertex - Genetic screening: LR NIPT, neg carrier screening - Anatomy US: Shay Twins, no evidence of TAPS or TTTS - fUS 07/27: Twin A 1054g (79%ile), Twin B 847g (20%ile), Concordant 19.7 %. AGA of both twins. Lateral ventriculomegaly twin B, for formal anatomy US with us - fUS 08/09: Twin A: vertex, normal MVP, Twin B: vertex, normal MVP, mild left sided ventriculomegaly. No evidence of TTTS - fUS 08/16: A transverse, normal MVP, present bladder; twin B vertex, normal MVP, normal bladder. UA MCA dopplers WNL no e/o TTTS/TAPS - BMZ^07/30 @2330 - Mg stopped 07/29 - PCN deferred - S/p peds consult 08/10 - MONITORING PLAN: dNST - Shay: next due 08/30 #MWB #VZV equivocal #Rh negative - PNL: Rh Neg/Ab Neg/HIV NR/Rub Imm/RPR NR/HepB NR/GC/CT Not obtained/VZV Equiv - 1 hr GTT early 82 - 1hr GTT 106 - 3T HIV /RPR NR - s/p flu vax 07/12/24, Tdap 08/09 - Rhogam 08/01 - GBS neg 08/01 - MOD: TBD, IOL 09/19 @ 0530 - MOF: breast - MOC: nexdinorah Plaza MD 08/18/24 Antepartum Service Coverage Thursday through Thursday 8a-7p APU R2 (first call) [phone] APU R3 (chief) [phone] Evenings 7p-8am Weekend Thursday 6pm through Thursday 8am Labor R2 (first call) [phone] Labor R4 (chief) [phone] Cosigned by Leticia Barillas MD at 08/18/2024 5:08 PM GAS APPLIANCE REPAIRER APPLIANCE REPAIRER APPLIANCE REPAIRER Associated attestation - Leticia Barillas MD - 08/18/2024 5:08 PM GAS APPLIANCE REPAIRER I have personally seen and evaluated the patient, reviewed the documentation, and agree with the housestaff's assessment and plan. 08/17/2024 - 29w2d - Anastasia Sheppard MD Antepartum Progress Note Gestational Age: 29w2d Admission Date: 07/29/2024 Length of stay: 19 Admission Diagnosis: preeclampsia with severe features otherwise complicated by: Shay twins, Twin B with aortic root dilation and lateral ventriculomegaly, chronic headaches, Rh neg, dep/anxiety INTERVAL EVENTS - NAEON - largely normotensive, occasional mild range - formal US yesterday, no ultrasonographic findings concerning for TTTS or TAPS SUBJECTIVE No new problems. Reports active movement x2. No vaginal bleeding/leakage of fluid/contractions. Denies SHIPLEY, vision changes, SOB, chest pain, RUQ pain, new swelling changes. Review of Systems Negative except as per above. OBJECTIVE Vitals: Temp: [36.6 ??C (97.9 ??F)-36.7 ??C (98.1 ??F)] 36.6 ??C (97.9 ??F) Pulse: [99-117] 99 Resp: [16-18] 18 BP: (122-131)/(77-83) 131/77 FHR: reactive NST x2 [place]: no regular contractions Physical Exam General: No acute distress. Appears stated age and cooperative. Lungs: Non-labored. Abdomen: Soft, non-tender, gravid. Extremities: Warm and well-perfused. No bilateral lower extremity calf tenderness. Trace non pitting lower extremity edema Pelvic: Deferred. Neurologic: Alert and oriented x4, non-focal Lab Review: Recent Labs Lab Units 08/16/24 0615 08/13/24 0544 WBC K/cumm 10.9* 12.4* HEMOGLOBIN g/dL 11.6* 11.8* HEMATOCRIT % 34.0* 34.4* PLATELETS K/cumm 257 295 Recent Labs Lab Units 08/16/24 0615 08/14/24 1506 08/13/24 0544 SODIUM mmol/L 139 -- 137 POTASSIUM PLASMA mmol/L 3.4 -- 3.7 CHLORIDE mmol/L 105 -- 104 CO2 mmol/L 23 -- 22 ANIONGAP mmol/L 11 -- 11 GLUCOSE mg/dL 72 -- 74 POC GLUCOSE MONITOR mg/dL -- 103 -- BUN SERUM mg/dL 8 -- 8 CREATININE mg/dL 0.51* -- 0.49* CALCIUM mg/dL 9.2 -- 9.4 ALBUMIN g/dL 3.2* -- 3.3* ALK PHOS Units/L 86 -- 85 ALT Units/L 16 -- 21 AST Units/L 16 -- 19 BILIRUBIN TOTAL mg/dL 0.2 -- 0.3 ASSESSMENT/PLAN 29 y.o. at 29w2d a/f preeclampsia with SF #PreE w/SF - Dx based on newly elevated blood pressures requiring IV meds - presented to OSH with sustained severe range BP requiring L20 - Given 4g Mg bolus prior to transfer - BPs normotensive to mild range on admission - Admission labs CBC Hgb 11.4 Plt 278 /CMP Cr 0.56 AST 21 ALT 19/UPC 0.122 - Home regimen: None - 24 hr spotting: none - s/p Mag (stopped 07/29) due to stability - APLS: Lupus AC, Beta2 glycoprotein IgM/IgG, cardiolipin IgG.IgM negative 08/04 Plan: - NXL 90mg (^08/01) - q72h CBC/CMP, T&S - del by 34 weeks, 09/19 IOL @ 0530 #sinus tachycardia, intermittent - 08/04 episode of tachycardia to 130-140s - EKG with sinus tachycardia x2 - asymptomatic, negative exam - neg RVP - Ddimer [address] PE negative (obtained per YEARS criteria) - suspect recent activity plus possible reflex tachycardia from NXL - if persistent, change NXL to labetalol 200 TID and uptitrate for BP control - Thyroid studies ordered 08/16 #Chronic headaches - Hx SHIPLEY inside and outside of , previously on nortriptyline prior to - Presenting headache feels like prior episodes - Intermittent mild headache responsive to APAP and reglan - takes nortriptyline outside of , discussed restarting if persistent headache and acceptable safety profile in - If headaches resume, consider magnesium/riboflavin #Aortic dilation of Fetus B - 07/27 Fetus A: Ascending/isthmus of aorta is mildly enlarged today on imaging. Aortic valve size measures within normal limits and peak systolic velocity measurements are within normal limits. Difficult to assess if aortic valve is bi or tri-leaflet. - echo Twin A 08/03: WNL - echo Twin B 08/03: mildly dilated ascending aorta (0.75cm) (same as previous scan but twins moved positions) - s/p cardiology consult - plan for echo of twin B prior to discharge #lateral ventriculomegaly of twin B fUS 08/09: Twin A: vertex, normal MVP, Twin B: vertex, normal MVP, mild left sided ventriculomegaly, right difficult to visualize. - s/p NICU consult 08/10 #Depression/ Anxiety - Previously on SSRI, stable mood this #MO -BMI 47 #FWB: #Shay TIUP - BSUS Vertex/Vertex - Genetic screening: LR NIPT, neg carrier screening - Anatomy US: Shay Twins, no evidence of TAPS or TTTS - fUS 07/27: Twin A 1054g (79%ile), Twin B 847g (20%ile), Concordant 19.7 %. AGA of both twins. Lateral ventriculomegaly twin B, for formal anatomy US with us - fUS 08/09: Twin A: vertex, normal MVP, Twin B: vertex, normal MVP, mild left sided ventriculomegaly. No evidence of TTTS - fUS 08/16: A transverse, normal MVP, present bladder; twin B vertex, normal MVP, normal bladder. UA MCA dopplers WNL no e/o TTTS/TAPS - BMZ^07/30 @2330 - Mg stopped 07/29 - PCN deferred - S/p peds consult 08/10 - MONITORING PLAN: dNST - Shay: next due #MWB #VZV equivocal #Rh negative - PNL: Rh Neg/Ab Neg/HIV NR/Rub Imm/RPR NR/HepB NR/GC/CT Not obtained/VZV Equiv - 1 hr GTT early 82 - 1hr GTT 106 - 3T HIV /RPR NR - s/p flu vax 07/12/24, Tdap 08/09 - Rhogam 08/01 - GBS neg 08/01 - MOD: TBD, IOL 09/19 @ 0530 - MOF: breast - MOC: teto Plaza MD 08/17/24 Antepartum Service Coverage Thursday through Thursday 8a-7p APU R2 (first call) [phone] APU R3 (chief) [phone] Evenings 7p-8am Weekend Thursday 6pm through Thursday 8am Labor R2 (first call) [phone] Labor R4 (chief) [phone] Cosigned by Leticia Barillas MD at 08/17/2024 8:25 AM GAS APPLIANCE REPAIRER APPLIANCE REPAIRER APPLIANCE REPAIRER Associated attestation - Leticia Barillas MD - 08/17/2024 8:25 AM GAS APPLIANCE REPAIRER I have personally seen and evaluated the patient, reviewed the documentation, and agree with the housestaff's assessment and plan. 08/16/2024 - 29w1d - Anastasia Sheppard MD Antepartum Progress Note Gestational Age: 29w1d Admission Date: 07/29/2024 Length of stay: 18 Admission Diagnosis: preeclampsia with severe features otherwise complicated by: Shay twins, Twin B with aortic root dilation and lateral ventriculomegaly, chronic headaches, Rh neg, dep/anxiety INTERVAL EVENTS - NAEON - largely normotensive, occasional mild range - starting on lovenox for DVT PPX SUBJECTIVE No new problems. Reports active movement x2. No vaginal bleeding/leakage of fluid/contractions. Denies SHIPLEY, vision changes, SOB, chest pain, RUQ pain, new swelling changes. Review of Systems Negative except as per above. OBJECTIVE Vitals: Temp: [36.5 ??C (97.7 ??F)-36.8 ??C (98.2 ??F)] 36.7 ??C (98 ??F) Pulse: [98-118] 118 Resp: [16-18] 16 BP: (132-141)/(77-90) 132/78 FHR: reactive NST x2 [place]: no regular contractions Physical Exam General: No acute distress. Appears stated age and cooperative. Lungs: Non-labored. Abdomen: Soft, non-tender, gravid. Extremities: Warm and well-perfused. No bilateral lower extremity calf tenderness. Trace non pitting lower extremity edema Pelvic: Deferred. Neurologic: Alert and oriented x4, non-focal Lab Review: Recent Labs Lab Units 08/16/24 0615 08/13/24 0544 08/10/24 0449 WBC K/cumm 10.9* 12.4* 11.7* HEMOGLOBIN g/dL 11.6* 11.8* 11.7* HEMATOCRIT % 34.0* 34.4* 35.0* PLATELETS K/cumm 257 295 293 Recent Labs Lab Units 08/16/24 0615 08/14/24 1506 08/13/24 0544 08/10/24 0449 SODIUM mmol/L 139 -- 137 135 POTASSIUM PLASMA mmol/L 3.4 -- 3.7 3.5 CHLORIDE mmol/L 105 -- 104 102 CO2 mmol/L 23 -- 22 22 ANIONGAP mmol/L 11 -- 11 11 GLUCOSE mg/dL 72 -- 74 79 POC GLUCOSE MONITOR mg/dL -- 103 -- -- BUN SERUM mg/dL 8 -- 8 9 CREATININE mg/dL 0.51* -- 0.49* 0.51* CALCIUM mg/dL 9.2 -- 9.4 9.2 ALBUMIN g/dL 3.2* -- 3.3* 3.2* ALK PHOS Units/L 86 -- 85 85 ALT Units/L 16 -- 21 22 AST Units/L 16 -- 19 19 BILIRUBIN TOTAL mg/dL 0.2 -- 0.3 0.2 ASSESSMENT/PLAN 29 y.o. at 29w1d with Shay TIUP admitted with preeclampsia with SF #PreE w/SF - Dx based on newly elevated blood pressures requiring IV meds - presented to OSH with sustained severe range BP requiring L20 - Given 4g Mg bolus prior to transfer - BPs normotensive to mild range on admission - Admission labs CBC Hgb 11.4 Plt 278 /CMP Cr 0.56 AST 21 ALT 19/UPC 0.122 - Home regimen: None - 24 hr spotting: none - s/p Mag (stopped 07/29) due to stability - APLS: Lupus AC, Beta2 glycoprotein IgM/IgG, cardiolipin IgG.IgM negative 08/04 Plan: - NXL 90mg (^08/01) - q72h CBC/CMP, T&S - del by 34 weeks, 09/19 IOL @ 0530 #sinus tachycardia, intermittent - 08/04 episode of tachycardia to 130-140s - EKG with sinus tachycardia x2 - asymptomatic, negative exam - neg RVP - Ddimer [address] PE negative (obtained per YEARS criteria) - suspect recent activity plus possible reflex tachycardia from NXL - if persistent, change NXL to labetalol 200 TID and uptitrate for BP control - Thyroid studies ordered 08/16 #Chronic headaches - Hx SHIPLEY inside and outside of , previously on nortriptyline prior to - Presenting headache feels like prior episodes - Intermittent mild headache responsive to APAP and reglan - takes nortriptyline outside of , discussed restarting if persistent headache and acceptable safety profile in - If headaches resume, consider magnesium/riboflavin #Aortic dilation of Fetus B - 07/27 Fetus A: Ascending/isthmus of aorta is mildly enlarged today on imaging. Aortic valve size measures within normal limits and peak systolic velocity measurements are within normal limits. Difficult to assess if aortic valve is bi or tri-leaflet. - echo Twin A 08/03: WNL - echo Twin B 08/03: mildly dilated ascending aorta (0.75cm) (same as previous scan but twins moved positions) - s/p cardiology consult - plan for echo of twin B prior to discharge #lateral ventriculomegaly of twin B fUS 08/09: Twin A: vertex, normal MVP, Twin B: vertex, normal MVP, mild left sided ventriculomegaly, right difficult to visualize. - s/p NICU consult 08/10 #Depression/ Anxiety - Previously on SSRI, stable mood this #MO -BMI 47 #FWB: #Shay TIUP - BSUS Vertex/Vertex - Genetic screening: LR NIPT, neg carrier screening - Anatomy US: Shay Twins, no evidence of TAPS or TTTS - fUS 07/27: Twin A 1054g (79%ile), Twin B 847g (20%ile), Concordant 19.7 %. AGA of both twins. Lateral ventriculomegaly twin B, for formal anatomy US with us - fUS 08/09: Twin A: vertex, normal MVP, Twin B: vertex, normal MVP, mild left sided ventriculomegaly. No evidence of TTTS - BMZ^07/30 @2330 - Mg stopped 07/29 - PCN deferred - S/p peds consult 08/10 - MONITORING PLAN: dNST - Shay: next due 08/16 #MWB #VZV equivocal #Rh negative - PNL: Rh Neg/Ab Neg/HIV NR/Rub Imm/RPR NR/HepB NR/GC/CT Not obtained/VZV Equiv - 1 hr GTT early 82 - 1hr GTT 106 - 3T HIV /RPR NR - s/p flu vax 07/12/24, Tdap 08/09 - Rhogam 08/01 - GBS neg 08/01 - MOD: TBD, IOL 09/19 @ 0530 - MOF: breast - MOC: nexplanon Anastasia Plaza MD 08/16/24 Antepartum Service Coverage Thursday through Thursday 8a-7p APU R2 (first call) [phone] APU R3 (chief) [phone] Evenings 7p-8am Weekend Thursday 6pm through Thursday 8am Labor R2 (first call) [phone] Labor R4 (chief) [phone] Cosigned by Leticia Barillas MD at 08/16/2024 9:45 AM GAS APPLIANCE REPAIRER APPLIANCE REPAIRER APPLIANCE REPAIRER Associated attestation - Leticia Barillas MD - 08/16/2024 9:45 AM GAS APPLIANCE REPAIRER I have personally seen and evaluated the patient, reviewed the documentation, and agree with the housestaff's assessment and plan. 08/15/2024 - 29w0d - Millie Pierce LCSW Reason for Admission Pt (Suki Leon 1995) was admitted on 07/29/2024 for Preeclampsia, unspecified trimester [O14.90]. Pt discussed in DCAM rounds with medical team. Per DCAM rounds, pt remains admitted to the APU due to ongoing medical needs. SW to follow for coping, adjustment to diagnosis as needed, and assess for social needs. ADD: anticipated admission until delivery SW remains available. ARACELIS Tyler, [facility] APPLIANCE REPAIRER 08/15/2024 - 29w0d - Anastasia Sheppard MD Antepartum Progress Note Gestational Age: 29w0d Admission Date: 07/29/2024 Length of stay: 17 Admission Diagnosis: preeclampsia with severe features otherwise complicated by: Shay twins, Twin B with aortic root dilation and lateral ventriculomegaly, chronic headaches, Rh neg, dep/anxiety INTERVAL EVENTS - NAEON - reactive monitoring - largely normotensive, occasional mild range - Tachycardic to 120s, asymptomatic - Mild SHIPLEY yesterday, resolving with APAP, reglan, and benadryl SUBJECTIVE No new problems. Reports active movement x2. No vaginal bleeding/leakage of fluid/contractions. Denies SHIPLEY, vision changes, SOB, chest pain, RUQ pain, new swelling changes. Review of Systems Negative except as per above. OBJECTIVE Vitals: Temp: [36.6 ??C (97.9 ??F)-36.8 ??C (98.2 ??F)] 36.7 ??C (98.1 ??F) Pulse: [100-122] 116 Resp: [16-18] 17 BP: (117-137)/(69-90) 131/85 FHR: reactive NST x2 [place]: no regular contractions Physical Exam General: No acute distress. Appears stated age and cooperative. Lungs: Non-labored. Abdomen: Soft, non-tender, gravid. Extremities: Warm and well-perfused. No bilateral lower extremity calf tenderness. Trace non pitting lower extremity edema Pelvic: Deferred. Neurologic: Alert and oriented x4, non-focal Lab Review: Recent Results (from the past 24 hours) POCT glucose Collection Time: 08/14/24 3:06 PM Result Value Ref Range Glucose, POC 103 70 - 199 mg/dL Glucose comment 1 Post Meal ASSESSMENT/PLAN 29 y.o. at 29w0d a/f preeclampsia with SF #PreE w/SF - Dx based on newly elevated blood pressures requiring IV meds - presented to OSH with sustained severe range BP requiring L20 - Given 4g Mg bolus prior to transfer - BPs normotensive to mild range on admission - Admission labs CBC Hgb 11.4 Plt 278 /CMP Cr 0.56 AST 21 ALT 19/UPC 0.122 - Home regimen: None - 24 hr spotting: none - s/p Mag (stopped 07/29) due to stability - APLS: Lupus AC, Beta2 glycoprotein IgM/IgG, cardiolipin IgG.IgM negative 08/04 Plan: - NXL 90mg (^08/01) - q72h CBC/CMP, T&S #sinus tachycardia, intermittent - 08/04 episode of tachycardia to 130-140s - EKG with sinus tachycardia x2 - asymptomatic, negative exam - neg RVP - Ddimer [address] PE negative (obtained per YEARS criteria) - suspect recent activity plus possible reflex tachycardia from NXL - if persistent, change NXL to labetalol 200 TID and uptitrate for BP control #Chronic headaches - Hx SHIPLEY inside and outside of , previously on nortriptyline prior to - Presenting headache feels like prior episodes - Intermittent mild headache responsive to APAP and reglan - If headaches resume, consider magnesium/riboflavin #Aortic dilation of Fetus B - 07/27 Fetus A: Ascending/isthmus of aorta is mildly enlarged today on imaging. Aortic valve size measures within normal limits and peak systolic velocity measurements are within normal limits. Difficult to assess if aortic valve is bi or tri-leaflet. - echo Twin A 08/03: WNL - echo Twin B 08/03: mildly dilated ascending aorta (0.75cm) (same as previous scan but twins moved positions) - s/p cardiology consult - plan for echo of twin B prior to discharge #lateral ventriculomegaly of twin B fUS 08/09: Twin A: vertex, normal MVP, Twin B: vertex, normal MVP, mild left sided ventriculomegaly, right difficult to visualize. - s/p NICU consult 08/10 #Depression/ Anxiety - Previously on SSRI, stable mood this #MO -BMI 47 #FWB: #Shay TIUP - BSUS Vertex/Vertex - Genetic screening: LR NIPT, neg carrier screening - Anatomy US: Shay Twins, no evidence of TAPS or TTTS - fUS 07/27: Twin A 1054g (79%ile), Twin B 847g (20%ile), Concordant 19.7 %. AGA of both twins. Lateral ventriculomegaly twin B, for formal anatomy US with us - fUS 08/09: Twin A: vertex, normal MVP, Twin B: vertex, normal MVP, mild left sided ventriculomegaly. No evidence of TTTS - BMZ^07/30 @2330 - Mg stopped 07/29 - PCN deferred - S/p peds consult 08/10 - MONITORING PLAN: dNST - TTTS screening: next due 08/16 #MWB #VZV equivocal #Rh negative - PNL: Rh Neg/Ab Neg/HIV NR/Rub Imm/RPR NR/HepB NR/GC/CT Not obtained/VZV Equiv - 1 hr GTT early 82 - 1hr GTT 106 - 3T HIV /RPR NR - s/p flu vax 07/12/24, Tdap 08/09 - Rhogam 08/01 - GBS neg 08/01 - MOD: TBD - MOF: breast - MOC: nexplanon Anastasia Plaza MD 08/15/24 Antepartum Service Coverage Thursday through Thursday 8a-7p APU R2 (first call) [phone] APU R3 (chief) [phone] Evenings 7p-8am Weekend Thursday 6pm through Thursday 8am Labor R2 (first call) [phone] Labor R4 (chief) [phone] Cosigned by Leticia Barillas MD at 08/15/2024 8:57 AM GAS APPLIANCE REPAIRER APPLIANCE REPAIRER APPLIANCE REPAIRER Associated attestation - Leticia Barillas MD - 08/15/2024 8:57 AM GAS APPLIANCE REPAIRER I have personally seen and evaluated the patient, reviewed the documentation, and agree with the housestaff's assessment and plan. Continue inpatient monitoring. Headaches are typical for her and resolve. Intermittent Tachycardia with negative CT PE - ?.? Related to nifedipine but other etiologies like inappropriate sinus tach and thyroid disease. Will check TSH. 08/14/2024 - 28w6d - Mariela Christian MD Antepartum Progress Note Gestational Age: 28w6d Admission Date: 07/29/2024 Length of stay: 16 Admission Diagnosis: preeclampsia with severe features otherwise complicated by: Shay twins, Twin B with aortic root dilation and lateral ventriculomegaly, chronic headaches, Rh neg, dep/anxiety INTERVAL EVENTS - NAEON - reactive monitoring - normotensive to mild range SUBJECTIVE No new problems. Reports active movement x2. No vaginal bleeding/leakage of fluid/contractions. Denies SHIPLEY, vision changes, SOB, chest pain, RUQ pain, new swelling changes. Review of Systems Negative except as per above. OBJECTIVE Vitals: Temp: [36.7 ??C (98 ??F)-36.9 ??C (98.4 ??F)] 36.9 ??C (98.4 ??F) Pulse: [104-134] 114 Resp: [16-18] 18 BP: (125-130)/(76-85) 128/85 FHR: reactive NST x2 [place]: no regular contractions Physical Exam General: No acute distress. Appears stated age and cooperative. Lungs: Non-labored. Abdomen: Soft, non-tender, gravid. Extremities: Warm and well-perfused. No bilateral lower extremity calf tenderness. Trace non pitting lower extremity edema Pelvic: Deferred. Neurologic: Alert and oriented x4, non-focal Lab Review: Recent Results (from the past 24 hours) Antibody identification Collection Time: 08/13/24 7:42 AM Result Value Ref Range Antibody ID 1 Passive Anti-D ASSESSMENT/PLAN Suki Leon is a 29 y.o. at 28w6d admitted for preeclampsia with severe features. #PreE w/SF - Dx based on newly elevated blood pressures requiring IV meds - presented to OSH with sustained severe range BP requiring L20 - Given 4g Mg bolus prior to transfer - BPs normotensive to mild range on admission - Admission labs CBC Hgb 11.4 Plt 278 /CMP Cr 0.56 AST 21 ALT 19/UPC 0.122 - Home regimen: None - 24 hr spotting: none - s/p Mag (stopped 07/29) due to stability - APLS: Lupus AC, Beta2 glycoprotein IgM/IgG, cardiolipin IgG.IgM negative 08/04 Plan: - NXL 90mg (^08/01) - q72h CBC/CMP, T&S #sinus tachycardia, intermittent - 08/04 episode of tachycardia to 130-140s - EKG with sinus tachycardia x2 - asymptomatic, negative exam - neg RVP - Ddimer [address] PE negative (obtained per YEARS criteria) - suspect recent activity plus possible reflex tachycardia from NXL - if persistent, change NXL to labetalol 200 TID and uptitrate for BP control #Chronic headaches - has headaches inside and outside of - presenting headache feels like prior episodes - Intermittent mild headache responsive to APAP and reglan - if headaches resume, consider magnesium/riboflavin #Aortic dilation of Fetus B - 07/27 Fetus A: Ascending/isthmus of aorta is mildly enlarged today on imaging. Aortic valve size measures within normal limits and peak systolic velocity measurements are within normal limits. Difficult to assess if aortic valve is bi or tri-leaflet. - echo Twin A 08/03: WNL - echo Twin B 08/03: mildly dilated ascending aorta (0.75cm) (same as previous scan but twins moved positions) - s/p cardiology consult - plan for echo of twin B prior to discharge #lateral ventriculomegaly of twin B fUS 08/09: Twin A: vertex, normal MVP, Twin B: vertex, normal MVP, mild left sided ventriculomegaly, right difficult to visualize. - s/p NICU consult 08/10 #Depression/ Anxiety - Previously on SSRI, stable mood this #MO -BMI 47 #FWB: #Shay TIUP - BSUS Vertex/Vertex - Genetic screening: LR NIPT, neg carrier screening - Anatomy US: Shay Twins, no evidence of TAPS or TTTS - fUS 07/27: Twin A 1054g (79%ile), Twin B 847g (20%ile), Concordant 19.7 %. AGA of both twins. Lateral ventriculomegaly twin B, for formal anatomy US with us - fUS 08/09: Twin A: vertex, normal MVP, Twin B: vertex, normal MVP, mild left sided ventriculomegaly. No evidence of TTTS - BMZ^07/30 @2330 - Mg stopped 07/29 - PCN deferred - S/p peds consult 08/10 - MONITORING PLAN: dNST - TTTS screening: next due 08/16 #MWB #VZV equivocal #Rh negative - PNL: Rh Neg/Ab Neg/HIV NR/Rub Imm/RPR NR/HepB NR/GC/CT Not obtained/VZV Equiv - 1 hr GTT early 82 - 1hr GTT 106 - 3T HIV /RPR ordered 08/13 - s/p flu vax 07/12/24, Tdap 08/09 - Rhogam 08/01 - GBS neg 08/01 - MOD: TBD - MOF: breast - MOC: nexplanon Mariela Voss MD Obstetrics and Gynecology PGY-3 08/14/24 Antepartum Service Coverage Thursday through Thursday 8a-7p APU R2 (first call) [phone] APU R3 (chief) [phone] Evenings 7p-8am Weekend Thursday 6pm through Thursday 8am Labor R2 (first call) [phone] Labor R4 (chief) [phone] Cosigned by Nini Knapp MD at 08/14/2024 7:19 AM GAS APPLIANCE REPAIRER APPLIANCE REPAIRER APPLIANCE REPAIRER Associated attestation - Nini Knapp MD - 08/14/2024 7:19 AM GAS APPLIANCE REPAIRER I have seen and examined the patient on 08/14/24. I agree with the findings and plan of care as documented in the resident's/fellow's note. Some new ear pain without other URI sypmtoms- will perform exam. 08/13/2024 - 28w5d - Nini Knapp MD err APPLIANCE REPAIRER 08/13/2024 - 28w5d - Mariela Christian MD Antepartum Progress Note Gestational Age: 28w5d Admission Date: 07/29/2024 Length of stay: 15 Admission Diagnosis: preeclampsia with severe features otherwise complicated by: Shay twins, Twin B with aortic root dilation and lateral ventriculomegaly, chronic headaches, Rh neg, dep/anxiety INTERVAL EVENTS - NAEON - reactive monitoring - normotensive to mild range - Normal GTT SUBJECTIVE No new problems. Reports active movement x2. No vaginal bleeding/leakage of fluid/contractions. Denies SHIPLEY, vision changes, SOB, chest pain, RUQ pain, new swelling changes. Review of Systems Negative except as per above. OBJECTIVE Vitals: Temp: [36.6 ??C (97.9 ??F)-36.8 ??C (98.3 ??F)] 36.8 ??C (98.3 ??F) Pulse: [94-121] 121 Resp: [16-18] 18 BP: (121-139)/(73-85) 129/82 FHR: reactive NST x2 [place]: no regular contractions Physical Exam General: No acute distress. Appears stated age and cooperative. Lungs: Non-labored. Abdomen: Soft, non-tender, gravid. Extremities: Warm and well-perfused. No bilateral lower extremity calf tenderness. Trace non pitting lower extremity edema Pelvic: Deferred. Neurologic: Alert and oriented x4, non-focal Lab Review: Recent Results (from the past 24 hours) GTT 50gm 1hr gestational screen Collection Time: 08/12/24 11:29 AM Result Value Ref Range GTT 50g gest screen 106 <=140 mg/dL Type and screen Collection Time: 08/13/24 5:44 AM Result Value Ref Range ABO Rh O Negative Abiodun, indirect Positive (A) CBC without differential Collection Time: 08/13/24 5:44 AM Result Value Ref Range WBC 12.4 (H) 3.8 - 9.9 K/cumm Hgb 11.8 (L) 11.9 - 15.5 g/dL Hct 34.4 (L) 35.6 - 45.5 % Plt 295 150 - 400 K/cumm MPV 10.3 9.1 - 12.3 fL RBC 3.93 3.90 - 5.20 M/cumm MCV 87.5 81.3 - 96.4 fL MCH 30.0 27.1 - 33.3 pg MCHC 34.3 32.3 - 35.7 g/dL RDW CV 13.6 11.1 - 14.9 % RDW SD 43.5 35.7 - 48.1 fL NRBC abs 0.00 0.00 - 0.01 K/cumm Comprehensive metabolic panel Collection Time: 08/13/24 5:44 AM Result Value Ref Range Sodium 137 135 - 145 mmol/L Potassium, pl 3.7 3.3 - 4.9 mmol/L Chloride 104 97 - 110 mmol/L CO2 22 22 - 32 mmol/L Anion gap 11 2 - 15 mmol/L BUN 8 6 - 25 mg/dL Creatinine 0.49 (L) 0.60 - 1.10 mg/dL Glucose 74 70 - 199 mg/dL Calcium 9.4 8.5 - 10.3 mg/dL Bilirubin, total 0.3 0.1 - 1.2 mg/dL Protein, pl 6.5 6.5 - 8.5 g/dL Albumin 3.3 (L) 3.5 - 5.0 g/dL Alk phos 85 40 - 130 Units/L ALT 21 7 - 45 Units/L AST 19 10 - 45 Units/L HIV 1/2 Antibody plus p24 Antigen Blood Collection Time: 08/13/24 5:44 AM Specimen: Blood Result Value Ref Range HIV 1/2 ab + p24 ag Nonreactive Nonreactive RPR Blood Collection Time: 08/13/24 5:44 AM Specimen: Blood Result Value Ref Range RPR Nonreactive Nonreactive eGFR Collection Time: 08/13/24 5:44 AM Result Value Ref Range eGFR >90 >=60 mL/min/1.73 m2 Antibody identification Collection Time: 08/13/24 7:42 AM Result Value Ref Range Antibody ID 1 Passive Anti-D ASSESSMENT/PLAN Suki Leon is a 29 y.o. at 28w5d admitted for preeclampsia with severe features. #PreE w/SF - Dx based on newly elevated blood pressures requiring IV meds - presented to OSH with sustained severe range BP requiring L20 - Given 4g Mg bolus prior to transfer - BPs normotensive to mild range on admission - Admission labs CBC Hgb 11.4 Plt 278 /CMP Cr 0.56 AST 21 ALT 19/UPC 0.122 - Home regimen: None - 24 hr spotting: none - s/p Mag (stopped 07/29) due to stability - APLS: Lupus AC, Beta2 glycoprotein IgM/IgG, cardiolipin IgG.IgM negative 08/04 Plan: - NXL 90mg (^08/01) - q72h CBC/CMP, T&S #sinus tachycardia, intermittent - 08/04 episode of tachycardia to 130-140s - EKG with sinus tachycardia x2 - asymptomatic, negative exam - neg RVP - Ddimer [address] PE negative (obtained per YEARS criteria) - suspect recent activity plus possible reflex tachycardia from NXL - if persistent, change NXL to labetalol 200 TID and uptitrate for BP control #Chronic headaches - has headaches inside and outside of - presenting headache feels like prior episodes - Intermittent mild headache responsive to APAP and reglan - if headaches resume, consider magnesium/riboflavin #Aortic dilation of Fetus B - 07/27 Fetus A: Ascending/isthmus of aorta is mildly enlarged today on imaging. Aortic valve size measures within normal limits and peak systolic velocity measurements are within normal limits. Difficult to assess if aortic valve is bi or tri-leaflet. - echo Twin A 08/03: WNL - echo Twin B 08/03: mildly dilated ascending aorta (0.75cm) (same as previous scan but twins moved positions) - s/p cardiology consult - plan for echo of twin B prior to discharge #lateral ventriculomegaly of twin B fUS 08/09: Twin A: vertex, normal MVP, Twin B: vertex, normal MVP, mild left sided ventriculomegaly, right difficult to visualize. - s/p NICU consult 08/10 #Depression/ Anxiety - Previously on SSRI, stable mood this #MO -BMI 47 #FWB: #Shay TIUP - BSUS Vertex/Vertex - Genetic screening: LR NIPT, neg carrier screening - Anatomy US: Shay Twins, no evidence of TAPS or TTTS - fUS 07/27: Twin A 1054g (79%ile), Twin B 847g (20%ile), Concordant 19.7 %. AGA of both twins. Lateral ventriculomegaly twin B, for formal anatomy US with us - fUS 08/09: Twin A: vertex, normal MVP, Twin B: vertex, normal MVP, mild left sided ventriculomegaly. No evidence of TTTS - BMZ^07/30 @2330 - Mg stopped 07/29 - PCN deferred - S/p peds consult 08/10 - MONITORING PLAN: dNST - TTTS screening: next due 08/16 #MWB #VZV equivocal #Rh negative - PNL: Rh Neg/Ab Neg/HIV NR/Rub Imm/RPR NR/HepB NR/GC/CT Not obtained/VZV Equiv - 1 hr GTT early 82 - 1hr GTT 106 - 3T HIV /RPR ordered 08/13 - s/p flu vax 07/12/24, Tdap 08/09 - Rhogam 08/01 - GBS neg 08/01 - MOD: TBD - MOF: breast - MOC: nexplanon Mariela Voss MD Obstetrics and Gynecology PGY-3 08/13/24 Antepartum Service Coverage Thursday through Thursday 8a-7p APU R2 (first call) [phone] APU R3 (chief) [phone] Evenings 7p-8am Weekend Thursday 6pm through Thursday 8am Labor R2 (first call) [phone] Labor R4 (chief) [phone] Cosigned by Nini Knapp MD at 08/14/2024 7:15 AM GAS APPLIANCE REPAIRER APPLIANCE REPAIRER APPLIANCE REPAIRER Associated attestation - Nini Knapp MD - 08/14/2024 7:15 AM GAS APPLIANCE REPAIRER I have seen and examined the patient on 08/13/2024. I agree with the findings and plan of care as documented in the resident's/fellow's note.. 08/12/2024 - 28w4d - Maureen Clark MD Antepartum Progress Note Gestational Age: 28w4d Admission Date: 07/29/2024 Length of stay: 14 Admission Diagnosis: preeclampsia with severe features otherwise complicated by: Shay twins, Twin B with aortic root dilation and lateral ventriculomegaly, chronic headaches, Rh neg, dep/anxiety INTERVAL EVENTS - NAEON - reactive monitoring - normotensive HR 80-110s SUBJECTIVE No new problems. Reports active movement x2. No vaginal bleeding/leakage of fluid/contractions. Denies SHIPLEY, vision changes, SOB, chest pain, RUQ pain, new swelling changes. Review of Systems Negative except as per above. OBJECTIVE Vitals: Temp: [36.5 ??C (97.7 ??F)-36.8 ??C (98.2 ??F)] 36.7 ??C (98.1 ??F) Pulse: [88-114] 100 Resp: [16-18] 16 BP: (123-137)/(77-89) 131/79 FHR: reactive NST x2 [place]: no regular contractions Physical Exam General: No acute distress. Appears stated age and cooperative. Lungs: Non-labored. Abdomen: Soft, non-tender, gravid. Extremities: Warm and well-perfused. No bilateral lower extremity calf tenderness. Trace non pitting lower extremity edema Pelvic: Deferred. Neurologic: Alert and oriented x4, non-focal Lab Review: No results found for this or any previous visit (from the past 24 hours). ASSESSMENT/PLAN Suki Leon is a 29 y.o. at 28w4d admitted for preeclampsia with severe features. #PreE w/SF - Dx based on newly elevated blood pressures requiring IV meds - presented to OSH with sustained severe range BP requiring L20 - Given 4g Mg bolus prior to transfer - BPs normotensive to mild range on admission - Admission labs CBC Hgb 11.4 Plt 278 /CMP Cr 0.56 AST 21 ALT 19/UPC 0.122 - Home regimen: None - 24 hr spotting: none - s/p Mag (stopped 07/29) due to stability - APLS: Lupus AC, Beta2 glycoprotein IgM/IgG, cardiolipin IgG.IgM negative 08/04 Plan: - NXL 90mg (^08/01) - q72h CBC/CMP, T&S #sinus tachycardia, intermittent - 08/04 episode of tachycardia to 130-140s - EKG with sinus tachycardia x2 - asymptomatic, negative exam - neg RVP - Ddimer [address] PE negative (obtained per YEARS criteria) - suspect recent activity plus possible reflex tachycardia from NXL - if persistent, change NXL to labetalol 200 TID and uptitrate for BP control #Chronic headaches - has headaches inside and outside of - presenting headache feels like prior episodes - Intermittent mild headache responsive to APAP and reglan - if headaches resume, consider magnesium/riboflavin #Aortic dilation of Fetus B - 07/27 Fetus A: Ascending/isthmus of aorta is mildly enlarged today on imaging. Aortic valve size measures within normal limits and peak systolic velocity measurements are within normal limits. Difficult to assess if aortic valve is bi or tri-leaflet. - echo Twin A 08/03: WNL - echo Twin B 08/03: mildly dilated ascending aorta (0.75cm) (same as previous scan but twins moved positions) - s/p cardiology consult - plan for echo of twin B prior to discharge #lateral ventriculomegaly of twin B fUS 08/09: Twin A: vertex, normal MVP, Twin B: vertex, normal MVP, mild left sided ventriculomegaly, right difficult to visualize. - s/p NICU consult 08/10 #Depression/ Anxiety - Previously on SSRI, stable mood this #MO -BMI 47 #FWB: #Shay TIUP - BSUS Vertex/Vertex - Genetic screening: LR NIPT, neg carrier screening - Anatomy US: Shay Twins, no evidence of TAPS or TTTS - fUS 07/27: Twin A 1054g (79%ile), Twin B 847g (20%ile), Concordant 19.7 %. AGA of both twins. Lateral ventriculomegaly twin B, for formal anatomy US with us - fUS 08/09: Twin A: vertex, normal MVP, Twin B: vertex, normal MVP, mild left sided ventriculomegaly. No evidence of TTTS - BMZ^07/30 @2330 - Mg stopped 07/29 - PCN deferred - S/p peds consult 08/10 - MONITORING PLAN: dNST - TTTS screening: next due 08/16 #MWB #VZV equivocal #Rh negative - PNL: Rh Neg/Ab Neg/HIV NR/Rub Imm/RPR NR/HepB NR/GC/CT Not obtained/VZV Equiv - 1 hr GTT early 82 - 1hr GTT planned 08/13 - 3T HIV /RPR ordered 08/13 - s/p flu vax 07/12/24, Tdap 08/09 - Rhogam 08/01 - GBS neg 08/01 - MOD: TBD - MOF: breast - MOC: nexplanon Nadiya Calix MD PhD Obstetrics & Gynecology - PGY 2 08/12/24 Antepartum Service Coverage Thursday through Thursday 8a-7p APU R2 (first call) [phone] APU R3 (chief) [phone] Evenings 7p-8am Weekend Thursday 6pm through Thursday 8am Labor R2 (first call) [phone] Labor R4 (chief) [phone] Cosigned by Byron Lakhani MD at 08/12/2024 10:13 AM GAS APPLIANCE REPAIRER APPLIANCE REPAIRER APPLIANCE REPAIRER Associated attestation - Byron Lakhani MD - 08/12/2024 10:13 AM GAS APPLIANCE REPAIRER I have seen and examined the patient on 08/12/24. I agree with the findings and plan of care as documented in the resident's/fellow's note.. 08/11/2024 - 28w3d - Maureen Clark MD Antepartum Progress Note Gestational Age: 28w3d Admission Date: 07/29/2024 Length of stay: 13 Admission Diagnosis: preeclampsia with severe features otherwise complicated by: Shay twins, Twin B with aortic root dilation and lateral ventriculomegaly, chronic headaches, Rh neg, dep/anxiety INTERVAL EVENTS - NAEON - reactive monitoring - normotensive to mild range (<50%), HR 90-100s - q72h CBC WNL, CMP WNL - NICU consult completed SUBJECTIVE No new problems. Reports active movement x2. No vaginal bleeding/leakage of fluid/contractions. Denies SHIPLEY, vision changes, SOB, chest pain, RUQ pain, new swelling changes. Review of Systems Negative except as per above. OBJECTIVE Vitals: Temp: [36.5 ??C (97.7 ??F)-36.8 ??C (98.2 ??F)] 36.5 ??C (97.7 ??F) Pulse: [94-120] 106 Resp: [16-18] 18 BP: (126-140)/(68-92) 140/84 FHR: reactive NST x2 [place]: no regular contractions Physical Exam General: No acute distress. Appears stated age and cooperative. Lungs: Non-labored. Abdomen: Soft, non-tender, gravid. Extremities: Warm and well-perfused. No bilateral lower extremity calf tenderness. Trace non pitting lower extremity edema Pelvic: Deferred. Neurologic: Alert and oriented x4, non-focal Lab Review: No results found for this or any previous visit (from the past 24 hours). ASSESSMENT/PLAN Suki Leon is a 29 y.o. at 28w3d admitted for preeclampsia with severe features. #PreE w/SF - Dx based on newly elevated blood pressures requiring IV meds - presented to OSH with sustained severe range BP requiring L20 - Given 4g Mg bolus prior to transfer - BPs normotensive to mild range on admission - Admission labs CBC Hgb 11.4 Plt 278 /CMP Cr 0.56 AST 21 ALT 19/UPC 0.122 - Home regimen: None - 24 hr spotting: none - s/p Mag (stopped 07/29) due to stability - APLS: Lupus AC, Beta2 glycoprotein IgM/IgG, cardiolipin IgG.IgM negative 08/04 Plan: - NXL 90mg (^08/01) - q72h CBC/CMP, T&S #sinus tachycardia, intermittent - 08/04 episode of tachycardia to 130-140s - EKG with sinus tachycardia x2 - asymptomatic, negative exam - neg RVP - Ddimer [address] PE negative (obtained per YEARS criteria) - suspect recent activity plus possible reflex tachycardia from NXL - if persistent, change NXL to labetalol 200 TID and uptitrate for BP control #Chronic headaches - has headaches inside and outside of - presenting headache feels like prior episodes - Intermittent mild headache responsive to APAP and reglan - if headaches resume, consider magnesium/riboflavin #Aortic dilation of Fetus B - 07/27 Fetus A: Ascending/isthmus of aorta is mildly enlarged today on imaging. Aortic valve size measures within normal limits and peak systolic velocity measurements are within normal limits. Difficult to assess if aortic valve is bi or tri-leaflet. - echo Twin A 08/03: WNL - echo Twin B 08/03: mildly dilated ascending aorta (0.75cm) (same as previous scan but twins moved positions) - s/p cardiology consult - plan for echo of twin B prior to discharge #lateral ventriculomegaly of twin B fUS 08/09: Twin A: vertex, normal MVP, Twin B: vertex, normal MVP, mild left sided ventriculomegaly, right difficult to visualize. - s/p NICU consult 08/10 #Depression/ Anxiety - Previously on SSRI, stable mood this #MO -BMI 47 #FWB: #Shay TIUP - BSUS Vertex/Vertex - Genetic screening: LR NIPT, neg carrier screening - Anatomy US: Shay Twins, no evidence of TAPS or TTTS - fUS 07/27: Twin A 1054g (79%ile), Twin B 847g (20%ile), Concordant 19.7 %. AGA of both twins. Lateral ventriculomegaly twin B, for formal anatomy US with us - fUS 08/09: Twin A: vertex, normal MVP, Twin B: vertex, normal MVP, mild left sided ventriculomegaly. No evidence of TTTS - BMZ^07/30 @2330 - Mg stopped 07/29 - PCN deferred - S/p peds consult 08/10 - MONITORING PLAN: dNST - TTTS screening: next due 08/16 #MWB #VZV equivocal #Rh negative - PNL: Rh Neg/Ab Neg/HIV NR/Rub Imm/RPR NR/HepB NR/GC/CT Not obtained/VZV Equiv - 1 hr GTT early 82 - 1hr GTT ordered 08/11 - 3T HIV /RPR ordered 08/13 - s/p flu vax 07/12/24, Tdap 08/09 - Rhogam 08/01 - GBS neg 08/01 - MOD: TBD - MOF: breast - MOC: teto Calix MD PhD Obstetrics & Gynecology - PGY 2 11/07/24 Antepartum Service Coverage Thursday through Thursday 8a-7p APU R2 (first call) [phone] APU R3 (chief) [phone] Evenings 7p-8am Weekend Thursday 6pm through Thursday 8am Labor R2 (first call) [phone] Labor R4 (chief) [phone] Cosigned by Byron Lakhani MD at 08/11/2024 9:19 AM GAS APPLIANCE REPAIRER APPLIANCE REPAIRER APPLIANCE REPAIRER Associated attestation - Byron Lakhani MD - 08/11/2024 9:19 AM GAS APPLIANCE REPAIRER I have seen and examined the patient on 08/11/24. I agree with the findings and plan of care as documented in the resident's/fellow's note.. 08/10/2024 - 28w2d - Maureen Clark MD Antepartum Progress Note Gestational Age: 28w2d Admission Date: 07/29/2024 Length of stay: 12 Admission Diagnosis: preeclampsia with severe features otherwise complicated by: Shay twins, Twin B with aortic root dilation and lateral ventriculomegaly, chronic headaches, Rh neg, dep/anxiety INTERVAL EVENTS - NAEON - reactive monitoring - normotensive to mild range (<50%), HR 80-100s - q72h CBC WNL, CMP WNL - anatomy US 08/09: Twin A: vertex, normal MVP, Twin B: vertex, normal MVP, mild left sided ventriculomegaly. No evidence of TTTS - plan for NICU consult today now that anatomy complete SUBJECTIVE No new problems. Reports active movement. No vaginal bleeding/leakage of fluid/contractions. Denies SHIPLEY, vision changes, SOB, chest pain, RUQ pain, new swelling changes. Review of Systems Negative except as per above. OBJECTIVE Vitals: Temp: [36.5 ??C (97.7 ??F)-36.8 ??C (98.2 ??F)] 36.5 ??C (97.7 ??F) Pulse: [97-111] 111 Resp: [18] 18 BP: (127-138)/(67-90) 135/71 FHR: reactive NST x2 [place]: no regular contractions Physical Exam General: No acute distress. Appears stated age and cooperative. Lungs: Non-labored. Abdomen: Soft, non-tender, gravid. Extremities: Warm and well-perfused. No bilateral lower extremity calf tenderness. Trace non pitting lower extremity edema Pelvic: Deferred. Neurologic: Alert and oriented x4, non-focal Lab Review: Recent Results (from the past 24 hours) US Ob 14 Weeks Or Over Collection Time: 08/09/24 9:47 AM Result Value Ref Range Fetus# Fetus1 Placenta Details anterior Presentation Vertex; Maternal right- low Fetus# Fetus2 Placenta Details anterior Presentation Vertex; Maternal left- high CBC without differential Collection Time: 08/10/24 4:49 AM Result Value Ref Range WBC 11.7 (H) 3.8 - 9.9 K/cumm Hgb 11.7 (L) 11.9 - 15.5 g/dL Hct 35.0 (L) 35.6 - 45.5 % Plt 293 150 - 400 K/cumm MPV 10.5 9.1 - 12.3 fL RBC 4.00 3.90 - 5.20 M/cumm MCV 87.5 81.3 - 96.4 fL MCH 29.3 27.1 - 33.3 pg MCHC 33.4 32.3 - 35.7 g/dL RDW CV 13.7 11.1 - 14.9 % RDW SD 43.8 35.7 - 48.1 fL NRBC abs 0.00 0.00 - 0.01 K/cumm ASSESSMENT/PLAN Suki Leon is a 29 y.o. at 28w2d admitted for preeclampsia with severe features. #PreE w/SF - Dx based on newly elevated blood pressures requiring IV meds - presented to OSH with sustained severe range BP requiring L20 - Given 4g Mg bolus prior to transfer - BPs normotensive to mild range on admission - Admission labs CBC Hgb 11.4 Plt 278 /CMP Cr 0.56 AST 21 ALT 19/UPC 0.122 - Home regimen: None - 24 hr spotting: none - s/p Mag (stopped 07/29) due to stability - APLS: Lupus AC, Beta2 glycoprotein IgM/IgG, cardiolipin IgG.IgM negative 08/04 Plan: - NXL 90mg (^08/01) - q72h CBC/CMP, T&S #sinus tachycardia, intermittent - 08/04 episode of tachycardia to 130-140s - EKG with sinus tachycardia x2 - asymptomatic, negative exam - neg RVP - Ddimer [address] PE negative (obtained per YEARS criteria) - suspect recent activity plus possible reflex tachycardia from NXL - if persistent, change NXL to labetalol 200 TID and uptitrate for BP control #Chronic headaches - has headaches inside and outside of - presenting headache feels like prior episodes - Intermittent mild headache responsive to APAP and reglan - if headaches resume, consider magnesium/riboflavin #Aortic dilation of Fetus B - 07/27 Fetus A: Ascending/isthmus of aorta is mildly enlarged today on imaging. Aortic valve size measures within normal limits and peak systolic velocity measurements are within normal limits. Difficult to assess if aortic valve is bi or tri-leaflet. - echo Twin A 08/03: WNL - echo Twin B 08/03: mildly dilated ascending aorta (0.75cm) (same as previous scan but twins moved positions) - s/p cardiology consult - plan for echo of twin B prior to discharge #lateral ventriculomegaly of twin B fUS 08/09: Twin A: vertex, normal MVP, Twin B: vertex, normal MVP, mild left sided ventriculomegaly, right difficult to visualize. #Depression/ Anxiety - Previously on SSRI, stable mood this #MO -BMI 47 #FWB: #Shay TIUP - BSUS Vertex/Vertex - Genetic screening: LR NIPT, neg carrier screening - Anatomy US: Shay Twins, no evidence of TAPS or TTTS - fUS 07/27: Twin A 1054g (79%ile), Twin B 847g (20%ile), Concordant 19.7 %. AGA of both twins. Lateral ventriculomegaly twin B, for formal anatomy US with us - fUS 08/09: Twin A: vertex, normal MVP, Twin B: vertex, normal MVP, mild left sided ventriculomegaly. No evidence of TTTS - BMZ^07/30 @2330 - Mg stopped 07/29 - PCN deferred - peds consult ordered for after anatomy US completion - MONITORING PLAN: dNST - TTTS screening: next due 08/16 #MWB #VZV equivocal #Rh negative - PNL: Rh Neg/Ab Neg/HIV NR/Rub Imm/RPR NR/HepB NR/GC/CT Not obtained/VZV Equiv - 1 hr GTT early 82 - 3T HIV to be obtained/RPR to be obtained in 3T - s/p flu vax 07/12/24, Tdap 08/09 - Rhogam 08/01 - GBS neg 08/01 - MOD: TBD - MOF: breast - MOC: nexplanon Nadiya Calix MD PhD Obstetrics & Gynecology - PGY 2 08/10/24 Antepartum Service Coverage Thursday through Thursday 8a-7p APU R2 (first call) [phone] APU R3 (chief) [phone] Evenings 7p-8am Weekend Thursday 6pm through Thursday 8am Labor R2 (first call) [phone] Labor R4 (chief) [phone] Cosigned by Byron Lakhani MD at 08/10/2024 8:54 AM GAS APPLIANCE REPAIRER APPLIANCE REPAIRER APPLIANCE REPAIRER Associated attestation - Byron Lakhani MD - 08/10/2024 8:54 AM GAS APPLIANCE REPAIRER I have seen and examined the patient on 08/10/24. I agree with the findings and plan of care as documented in the resident's/fellow's note.. NICU consult today or tomorrow 08/09/2024 - 28w1d - Maureen Clark MD Antepartum Progress Note Gestational Age: 28w1d Admission Date: 07/29/2024 Length of stay: 11 Admission Diagnosis: preeclampsia with severe features otherwise complicated by: Shay twins, Twin B with aortic root dilation and lateral ventriculomegaly, chronic headaches, Rh neg, dep/anxiety INTERVAL EVENTS - NAEON - reactive monitoring - normotensive to mild range (<50%), HR 80-100s SUBJECTIVE No new problems. Reports active movement. No vaginal bleeding/leakage of fluid/contractions. Denies SHIPLEY, vision changes, SOB, chest pain, RUQ pain, new swelling changes. Review of Systems Negative except as per above. OBJECTIVE Vitals: Temp: [36.5 ??C (97.7 ??F)-36.8 ??C (98.3 ??F)] 36.8 ??C (98.2 ??F) Pulse: [87-114] 101 Resp: [16-18] 16 BP: (123-146)/(77-90) 128/79 FHR: reactive NST x2 [place]: no regular contractions Physical Exam General: No acute distress. Appears stated age and cooperative. Lungs: Non-labored. Abdomen: Soft, non-tender, gravid. Extremities: Warm and well-perfused. No bilateral lower extremity calf tenderness. Trace non pitting lower extremity edema Pelvic: Deferred. Neurologic: Alert and oriented x4, non-focal Lab Review: No results found for this or any previous visit (from the past 24 hours). ASSESSMENT/PLAN Suki Leon is a 29 y.o. at 28w1d admitted for preeclampsia with severe features. #PreE w/SF - Dx based on newly elevated blood pressures requiring IV meds - presented to OSH with sustained severe range BP requiring L20 - Given 4g Mg bolus prior to transfer - BPs normotensive to mild range on admission - Admission labs CBC Hgb 11.4 Plt 278 /CMP Cr 0.56 AST 21 ALT 19/UPC 0.122 - Home regimen: None - 24 hr spotting: none - s/p Mag (stopped 07/29) due to stability - APLS: Lupus AC, Beta2 glycoprotein IgM/IgG, cardiolipin IgG.IgM negative 08/04 Plan: - NXL 90mg (^08/01) - q72h CBC/CMP, T&S #sinus tachycardia, intermittent - 08/04 episode of tachycardia to 130-140s - EKG with sinus tachycardia x2 - asymptomatic, negative exam - neg RVP - Ddimer [address] PE negative (obtained per YEARS criteria) - suspect recent activity plus possible reflex tachycardia from NXL - if persistent, change NXL to labetalol 200 TID and uptitrate for BP control #Chronic headaches - has headaches inside and outside of - presenting headache feels like prior episodes - Intermittent mild headache responsive to APAP and reglan #Aortic dilation of Fetus B - 07/27 Fetus A: Ascending/isthmus of aorta is mildly enlarged today on imaging. Aortic valve size measures within normal limits and peak systolic velocity measurements are within normal limits. Difficult to assess if aortic valve is bi or tri-leaflet. - echo Twin A 08/03: WNL - echo Twin B 08/03: mildly dilated ascending aorta (0.75cm) (same as previous scan but twins moved positions) - s/p cardiology consult - plan for echo of twin B prior to discharge #lateral ventriculomegaly of twin B - formal anatomy US for both twins ordered #Depression/ Anxiety - Previously on SSRI, stable mood this #MO -BMI 47 #FWB: #Shay TIUP - BSUS Vertex/Vertex - Genetic screening: LR NIPT, neg carrier screening - Anatomy US: Shay Twins, no evidence of TAPS or TTTS - fUS 07/27: Twin A 1054g (79%ile), Twin B 847g (20%ile), Concordant 19.7 %. AGA of both twins. Lateral ventriculomegaly twin B, for formal anatomy US with us - formal specialized anatomy ordered, tentatively for 08/08 - BMZ^07/30 @2330 - Mg stopped 07/29 - PCN deferred - peds consult ordered for after anatomy US completion - MONITORING PLAN: dNST - TTTS screening: next due 08/16 #MWB #VZV equivocal #Rh negative - PNL: Rh Neg/Ab Neg/HIV NR/Rub Imm/RPR NR/HepB NR/GC/CT Not obtained/VZV Equiv - 1 hr GTT early 82 - 3T HIV to be obtained/RPR to be obtained in 3T - s/p flu vax 07/12/24, Tdap Needs at 28wk - Rhogam 08/01 - GBS neg 08/01 - MOD: TBD - MOF: breast - MOC: teto Calix MD PhD Obstetrics & Gynecology - PGY 2 08/09/24 Antepartum Service Coverage Thursday through Thursday 8a-7p APU R2 (first call) [phone] APU R3 (chief) [phone] Evenings 7p-8am Weekend Thursday 6pm through Thursday 8am Labor R2 (first call) [phone] Labor R4 (chief) [phone] Cosigned by Byron Lakhani MD at 08/09/2024 10:16 AM GAS APPLIANCE REPAIRER APPLIANCE REPAIRER APPLIANCE REPAIRER APPLIANCE REPAIRER Associated attestation - Byron Lakhani MD - 08/09/2024 10:16 AM GAS APPLIANCE REPAIRER I have seen and examined the patient on 08/09/24. I agree with the findings and plan of care as documented in the resident's/fellow's note.. 08/08/2024 - w0d - Carola Espinal Chaplain Carola Murphy [facility] Spiritual Care Triage: [phone] 08/08/24 1400 Time Spent Start Time 1410 Stop Time 1420 Time Calculation (min) 10 min Patient Spiritual Assessment Spirituality Assessed Focus of Care Clinical Encounter Type Visited With Patient Response Type Routine visit Routine Visit Introduction Reason for visit Support Outcomes and Progress Demonstrating care and respect Achieved Interventions Interventions Offer emotional support;Offer spiritual/alevism support APPLIANCE REPAIRER 08/08/2024 - 0tasneem - Millie Pierce LCSW Reason for Admission Pt (Suki Leon 1995) was admitted on 07/29/2024 for Preeclampsia, unspecified trimester [O14.90]. Pt discussed in DCAM rounds with medical team. Per DCAM rounds, pt remains admitted to the APU due to ongoing medical needs. SW to follow for coping, adjustment to diagnosis as needed, and assess for social needs. SW remains available. ARACELIS Tyler, HOPPER ATTENDANT [facility] Clinical Hospital Cleaner [facility] APPLIANCE REPAIRER 08/08/2024 - 28w0d - Maureen Clark MD Antepartum Progress Note Gestational Age: 28w0d Admission Date: 07/29/2024 Length of stay: 10 Admission Diagnosis: preeclampsia with severe features otherwise complicated by: Shay twins, Twin B with aortic root dilation and lateral ventriculomegaly, chronic headaches, Rh neg, dep/anxiety INTERVAL EVENTS - NAEON - reactive monitoring - normotensive to mild range, HR 90-100s SUBJECTIVE No new problems. Reports active movement. No vaginal bleeding/leakage of fluid/contractions. Denies SHIPLEY, vision changes, SOB, chest pain, RUQ pain, new swelling changes. Needs FMLA paperwork completed Review of Systems Negative except as per above. OBJECTIVE Vitals: Temp: [36.6 ??C (97.8 ??F)-36.9 ??C (98.5 ??F)] 36.9 ??C (98.5 ??F) Pulse: [100-110] 100 Resp: [16-18] 16 BP: (133-149)/(74-91) 134/74 FHR: reactive NST x2 [place]: no regular contractions Physical Exam General: No acute distress. Appears stated age and cooperative. Lungs: Non-labored. Abdomen: Soft, non-tender, gravid. Extremities: Warm and well-perfused. No bilateral lower extremity calf tenderness. Trace non pitting lower extremity edema Pelvic: Deferred. Neurologic: Alert and oriented x4, non-focal Lab Review: No results found for this or any previous visit (from the past 24 hours). ASSESSMENT/PLAN Suki Leon is a 29 y.o. at 28w0d admitted for preeclampsia with severe features. #PreE w/SF - Dx based on newly elevated blood pressures requiring IV meds - presented to OSH with sustained severe range BP requiring L20 - Given 4g Mg bolus prior to transfer - BPs normotensive to mild range on admission - Admission labs CBC Hgb 11.4 Plt 278 /CMP Cr 0.56 AST 21 ALT 19/UPC 0.122 - Home regimen: None - 24 hr spotting: none - s/p Mag (stopped 07/29) due to stability - APLS: Lupus AC, Beta2 glycoprotein IgM/IgG, cardiolipin IgG.IgM negative 08/04 Plan: - NXL 90mg (^08/01) - q72h CBC/CMP, T&S #sinus tachycardia, intermittent - 08/04 episode of tachycardia to 130-140s - EKG with sinus tachycardia x2 - asymptomatic, negative exam - Ddimer 1100 > CT PE negative (obtained per YEARS criteria) - suspect recent activity plus possible reflex tachycardia from NXL - if persistent, change NXL to labetalol 200 TID and uptitrate for BP control #Chronic headaches - has headaches inside and outside of - presenting headache feels like prior episodes - Intermittent mild headache responsive to APAP and reglan #Aortic dilation of Fetus B - 07/27 Fetus A: Ascending/isthmus of aorta is mildly enlarged today on imaging. Aortic valve size measures within normal limits and peak systolic velocity measurements are within normal limits. Difficult to assess if aortic valve is bi or tri-leaflet. - echo Twin A 08/03: WNL - echo Twin B 08/03: mildly dilated ascending aorta (0.75cm) (same as previous scan but twins moved positions) - s/p cardiology consult - plan for echo of twin B prior to discharge #lateral ventriculomegaly of twin B - formal anatomy US for both twins ordered #Depression/ Anxiety - Previously on SSRI, stable mood this #MO -BMI 47 #FWB: #Shay TIUP - BSUS Vertex/Vertex - Genetic screening: LR NIPT, neg carrier screening - Anatomy US: Shay Twins, no evidence of TAPS or TTTS - fUS 07/27: Twin A 1054g (79%ile), Twin B 847g (20%ile), Concordant 19.7 %. AGA of both twins. Lateral ventriculomegaly twin B, for formal anatomy US with us - formal specialized anatomy ordered, tentatively for 08/08 - BMZ^07/30 @2330 - Mg stopped 07/29 - PCN deferred - peds consult ordered for after anatomy US completion - MONITORING PLAN: dNST - TTTS screening: next due 08/16 #MWB #VZV equivocal #Rh negative - PNL: Rh Neg/Ab Neg/HIV NR/Rub Imm/RPR NR/HepB NR/GC/CT Not obtained/VZV Equiv - 1 hr GTT early 82 - 3T HIV to be obtained/RPR to be obtained in 3T - s/p flu vax 07/12/24, Tdap Needs at 28wk - Rhogam 08/01 - GBS neg 08/01 - MOD: TBD - MOF: breast - MOC: nexplanon Nadiya Calix MD PhD Obstetrics & Gynecology - PGY 2 08/08/24 Cosigned by Byron Lakhani MD at 08/08/2024 9:57 AM GAS APPLIANCE REPAIRER APPLIANCE REPAIRER APPLIANCE REPAIRER Associated attestation - Byron Lakhani MD - 08/08/2024 9:57 AM GAS APPLIANCE REPAIRER I have seen and examined the patient on 08/08/24. I agree with the findings and plan of care as documented in the resident's/fellow's note.. 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 director clinical operations availability) 08/07/2024 - 27w6d - Mariela Christian MD Antepartum Progress Note Gestational Age: 27w6d Admission Date: 07/29/2024 Length of stay: 9 Admission Diagnosis: preeclampsia with severe features otherwise complicated by: Shay twins, Twin B with aortic root dilation and lateral ventriculomegaly, chronic headaches, Rh neg, dep/anxiety INTERVAL EVENTS - NAEON - reactive monitoring - normotensive to mild range SUBJECTIVE No new problems. Reports active movement. No vaginal bleeding/leakage of fluid/contractions. Denies SHIPLEY, vision changes, SOB, chest pain, RUQ pain, new swelling changes. Review of Systems Negative except as per above. OBJECTIVE Vitals: Temp: [36.6 ??C (97.8 ??F)-37 ??C (98.6 ??F)] 36.6 ??C (97.9 ??F) Pulse: [93-107] 93 Resp: [16-18] 18 BP: (129-142)/(77-82) 129/78 FHR: reactive NST x2 [place]: no regular contractions Physical Exam General: No acute distress. Appears stated age and cooperative. Lungs: Non-labored. Abdomen: Soft, non-tender, gravid. Extremities: Warm and well-perfused. No bilateral lower extremity edema or calf tenderness. Pelvic: Deferred. Neurologic: Alert and oriented x4, non-focal Lab Review: Recent Results (from the past 24 hours) CBC without differential Collection Time: 08/07/24 5:00 AM Result Value Ref Range WBC 10.2 (H) 3.8 - 9.9 K/cumm Hgb 12.0 11.9 - 15.5 g/dL Hct 35.0 (L) 35.6 - 45.5 % Plt 261 150 - 400 K/cumm MPV 10.2 9.1 - 12.3 fL RBC 4.02 3.90 - 5.20 M/cumm MCV 87.1 81.3 - 96.4 fL MCH 29.9 27.1 - 33.3 pg MCHC 34.3 32.3 - 35.7 g/dL RDW CV 13.8 11.1 - 14.9 % RDW SD 44.4 35.7 - 48.1 fL NRBC abs 0.00 0.00 - 0.01 K/cumm Comprehensive metabolic panel Collection Time: 08/07/24 5:00 AM Result Value Ref Range Sodium 138 135 - 145 mmol/L Potassium, pl 3.6 3.3 - 4.9 mmol/L Chloride 105 97 - 110 mmol/L CO2 22 22 - 32 mmol/L Anion gap 11 2 - 15 mmol/L BUN 7 6 - 25 mg/dL Creatinine 0.47 (L) 0.60 - 1.10 mg/dL Glucose 84 70 - 199 mg/dL Calcium 9.3 8.5 - 10.3 mg/dL Bilirubin, total 0.2 0.1 - 1.2 mg/dL Protein, pl 6.3 (L) 6.5 - 8.5 g/dL Albumin 3.1 (L) 3.5 - 5.0 g/dL Alk phos 80 40 - 130 Units/L ALT 26 7 - 45 Units/L AST 16 10 - 45 Units/L eGFR Collection Time: 08/07/24 5:00 AM Result Value Ref Range eGFR >90 >=60 mL/min/1.73 m2 ASSESSMENT/PLAN Suki Leon is a 29 y.o. at 27w6d admitted for preeclampsia with severe features. #PreE w/SF - Dx based on newly elevated blood pressures requiring IV meds - presented to OSH with sustained severe range BP requiring L20 - Given 4g Mg bolus prior to transfer - BPs normotensive to mild range on admission - Admission labs CBC Hgb 11.4 Plt 278 /CMP Cr 0.56 AST 21 ALT 19/UPC 0.122 - Home regimen: None - 24 hr spotting: none - s/p Mag (stopped 07/29) due to stability - APLS labs ordered 08/04 with next labs for early onset preeclampsia with severe features Plan: - NXL 90mg (^08/01) - q72h CBC/CMP, T&S #sinus tachycardia, intermittent - 08/04 episode of tachycardia to 130-140s - EKG with sinus tachycardia x2 - asymptomatic, negative exam - Ddimer [address] PE negative (obtained per YEARS criteria) - suspect recent activity plus possible reflex tachycardia from NXL - if persistent, change NXL to labetalol #Chronic headaches - has headaches inside and outside of - presenting headache feels like prior episodes - Intermittent mild headache responsive to APAP and reglan #Aortic dilation of Fetus B - 07/27 Fetus A: Ascending/isthmus of aorta is mildly enlarged today on imaging. Aortic valve size measures within normal limits and peak systolic velocity measurements are within normal limits. Difficult to assess if aortic valve is bi or tri-leaflet. - echo Twin A 08/03: WNL - echo Twin B 08/03: mildly dilated ascending aorta (0.75cm) (same as previous scan but twins moved positions) - s/p cardiology consult - plan for echo of twin B prior to discharge #lateral ventriculomegaly of twin B - formal anatomy US for both twins ordered #Depression/ Anxiety - Previously on SSRI, stable mood this #MO -BMI 47 #FWB: #Shay TIUP - BSUS Vertex/Vertex - Genetic screening: LR NIPT, neg carrier screening - Anatomy US: Shay Twins, no evidence of TAPS or TTTS - fUS 07/27: Twin A 1054g (79%ile), Twin B 847g (20%ile), Concordant 19.7 %. AGA of both twins. Lateral ventriculomegaly twin B, for formal anatomy US with us - formal specialized anatomy ordered, tentatively for 08/08 - BMZ^07/30 @2330 - Mg stopped 07/29 - PCN deferred - peds consult ordered for after anatomy US completion - MONITORING PLAN: dNST - TTTS screening: next due 08/16 #MWB #VZV equivocal #Rh negative - PNL: Rh Neg/Ab Neg/HIV NR/Rub Imm/RPR NR/HepB NR/GC/CT Not obtained/VZV Equiv - 1 hr GTT early 82 - 3T HIV to be obtained/RPR to be obtained in 3T - s/p flu vax 07/12/24, Tdap Needs at 28wk - Rhogam 08/01 - GBS neg 08/01 - MOD: TBD - MOF: breast - MOC: nexplanon Mariela Voss MD Obstetrics and Gynecology PGY-3 08/07/24 Cosigned by Eve Jenkins MD at 08/07/2024 7:23 AM GAS APPLIANCE REPAIRER APPLIANCE REPAIRER APPLIANCE REPAIRER Associated attestation - Eve Jenkins MD - 08/07/2024 7:23 AM GAS APPLIANCE REPAIRER Attending Attestation I have seen, examined, and discussed Suki Leon with Dr. Vsos on 08/07/2024. I agree with the findings and the plan of care as documented. 08/06/2024 - 27w5d - Maureen Clark MD Antepartum Progress Note Gestational Age: 27w5d Admission Date: 07/29/2024 Length of stay: 8 Admission Diagnosis: preeclampsia with severe features otherwise complicated by: Shay twins, Twin B with aortic root dilation and lateral ventriculomegaly, chronic headaches, Rh neg, dep/anxiety INTERVAL EVENTS - NAEON - reactive monitoring - normotensive to mild range - improved HR 90-100s SUBJECTIVE No new problems. Reports active movement. No vaginal bleeding/leakage of fluid/contractions. SHIPLEY med responsive Denies vision changes, SOB, chest pain, RUQ pain, new swelling changes. Review of Systems Negative except as per above. OBJECTIVE Vitals: Temp: [36.6 ??C (97.9 ??F)-37 ??C (98.6 ??F)] 36.7 ??C (98.1 ??F) Pulse: [95-120] 102 Resp: [16-18] 18 BP: (115-138)/(67-90) 115/67 FHR: reactive NST x2 [place]: no regular contractions Physical Exam General: No acute distress. Appears stated age and cooperative. Lungs: Non-labored. Abdomen: Soft, non-tender, gravid. Extremities: Warm and well-perfused. No bilateral lower extremity edema or calf tenderness. Pelvic: Deferred. Neurologic: Alert and oriented x4, non-focal Lab Review: No results found for this or any previous visit (from the past 24 hour(s)). ASSESSMENT/PLAN Suki Leon is a 29 y.o. at 27w5d admitted for preeclampsia with severe features. #PreE w/SF - Dx based on newly elevated blood pressures requiring IV meds - presented to OSH with sustained severe range BP requiring L20 - Given 4g Mg bolus prior to transfer - BPs normotensive to mild range on admission - Admission labs CBC Hgb 11.4 Plt 278 /CMP Cr 0.56 AST 21 ALT 19/UPC 0.122 - Home regimen: None - 24 hr spotting: none - s/p Mag (stopped 07/29) due to stability - APLS labs ordered 08/04 with next labs for early onset preeclampsia with severe features Plan: - NXL 90mg (^08/01) - q72h CBC/CMP, T&S #sinus tachycardia, intermittent - 08/04 episode of tachycardia to 130-140s - EKG with sinus tachycardia x2 - asymptomatic, negative exam - Ddimer [address] PE negative (obtained per YEARS criteria) - suspect recent activity plus possible reflex tachycardia from NXL - if persistent, change NXL to labetalol #Chronic headaches - has headaches inside and outside of - presenting headache feels like prior episodes - Intermittent mild headache responsive to APAP and reglan #Aortic dilation of Fetus B - 07/27 Fetus A: Ascending/isthmus of aorta is mildly enlarged today on imaging. Aortic valve size measures within normal limits and peak systolic velocity measurements are within normal limits. Difficult to assess if aortic valve is bi or tri-leaflet. - echo Twin A 08/03: WNL - echo Twin B 08/03: mildly dilated ascending aorta (0.75cm) (same as previous scan but twins moved positions) - s/p cardiology consult - plan for echo of twin B prior to discharge #lateral ventriculomegaly of twin B - formal anatomy US for both twins ordered #Depression/ Anxiety - Previously on SSRI, stable mood this #MO -BMI 47 #FWB: #Shay TIUP - BSUS Vertex/Vertex - Genetic screening: LR NIPT, neg carrier screening - Anatomy US: Shay Twins, no evidence of TAPS or TTTS - fUS 07/27: Twin A 1054g (79%ile), Twin B 847g (20%ile), Concordant 19.7 %. AGA of both twins. Lateral ventriculomegaly twin B, for formal anatomy US with us - formal specialized anatomy ordered, tentatively for 08/08 - BMZ^07/30 @2330 - Mg stopped 07/29 - PCN deferred - peds consult ordered for after anatomy US completion - MONITORING PLAN: dNST - TTTS screening: next due 08/16 #MWB #VZV equivocal #Rh negative - PNL: Rh Neg/Ab Neg/HIV NR/Rub Imm/RPR NR/HepB NR/GC/CT Not obtained/VZV Equiv - 1 hr GTT early 82 - 3T HIV to be obtained/RPR to be obtained in 3T - s/p flu vax 07/12/24, Tdap Needs at 28wk - Rhogam 08/01 - GBS neg 08/01 - MOD: TBD - MOF: breast - MOC: teto Calix MD PhD Obstetrics & Gynecology - PGY 2 08/06/24 Cosigned by Eve Jenkins MD at 08/06/2024 9:22 AM CDT Associated attestation - Eve Jenkins MD - 08/06/2024 9:22 AM CDT Attending Attestation I have seen, examined, and discussed Suki Leon with Dr. Calix on 08/06/2024. I agree with the findings and the plan of care as documented. 08/05/2024 - - Marge Salguero RD Nutrition Screen Note Pt. Screened for nutritional assessment secondary to LOS Past Medical History: Diagnosis Date Anxiety GERD (gastroesophageal reflux disease) IBS (irritable bowel syndrome) Migraine headache Obesity Past Surgical History: Procedure Laterality Date CHOLECYSTECTOMY Anthropometrics Weight: 128.8 kg (284 lb) Admission Weight : 128.8 kg Weight Change: 0.00 kg (0.00 lbs) IBW/kg (Calculated) : 56.7 kg Height: 165.1 cm (5' 5 ) Weight in (lb) to have BMI = 25: 149.9 BMI (Calculated): 47.3 Adult Malnutrition Scoring Tool (MST) What diet do you follow at home?: regular Have You Recently Lost Weight Without Trying?: No Have you been eating poorly because of a decreased appetite?: Yes Malnutrition Screening Tool (MST) Score: 1 Dietary Orders (From admission, onward) Start Ordered 07/29/24 1220 Adult Diet Regular Diet effective now Question: ([facility]) Diet type Answer: Regular 07/29/24 1220 Assessment / Impression: Met with patient at bedside. She reported good appetite and PO intake. She reports pre- weight of 260#. Currently 284# as of 08/04. She is tolerating PNV. No nutrition needs identified at this time. RD will continue to monitor. Marge Castro MS, RD, CNSC, LD Cell 08/05/2024 - 27w4d - Marge Conrad DO Transfusion Medicine Blood Bank Note Patient Information: ABO/Rh: O negative Antibody screen: Positive Previous antibodies: No known antibodies Antibodies identified: passive anti-D Additional testing performed: None Relevant Patient History: Suki Leon is a 29 y.o. woman, at 27w3d, admitted for preeclampsia with severe features. The patient was given RhIg on 08/01/24. Testing Information: The antibody screen was positive. Antibody identification demonstrated antibodies against the D antigen in the patient's plasma. Additional testing was not performed. Detection of anti-D in this patient's plasma is consistent with the patient's known history of RhIg administration on 08/01/24 and is therefore categorized as a passive anti-D. All common, clinically significant antibodies have been ruled out. Clinical Relevance: RhIg is a biologic prepared from human plasma that consists of concentrated antibodies directed against the D antigen on red blood cells. Anti-D antibodies may be implicated in hemolytic transfusion reactions with extravascular hemolysis and hemolytic disease of the fetus and . Therefore, anti-D antibodies attributable to RhIg administration may generally be considered clinically significant as long as the passively acquired anti-D is present in the patient's plasma. Therapeutic Relevance: ABO/Rh and crossmatch compatible red blood cell units will be provided for future transfusions. Contact Information: Please contact the [facility] Transfusion Medicine Service at (option 1) with any questions. This report has been prepared by: Marge Conrad DO Cosigned by Pam Lr MD PhD at 08/06/2024 11:45 AM CDT Associated attestation - Pam Lr MD PhD - 08/06/2024 11:45 AM CDT Attestation: I have personally reviewed the antibody result and agree with the interpretation contained in this written blood bank report. Pam Lr MD PhD 08/05/2024 - 27w4d - [facility], Maureen Mancini MD Antepartum Progress Note Gestational Age: 27w4d Admission Date: 07/29/2024 Length of stay: 7 Admission Diagnosis: preeclampsia with severe features INTERVAL EVENTS - NAEON - reactive monitoring - normotensive to mild range - episode of tachycardia to 130-140s with EKG with sinus tachycardia x2, asymptomatic, negative exam SUBJECTIVE No new problems. Reports active movement. No vaginal bleeding/leakage of fluid/contractions. No headache over last day, still asymptomatic from HR which is improved Denies vision changes, SOB, chest pain, RUQ pain, new swelling changes. Review of Systems Negative except as per above. OBJECTIVE Vitals: Temp: [36.4 ??C (97.6 ??F)-36.9 ??C (98.5 ??F)] 36.6 ??C (97.8 ??F) Pulse: [96-142] 104 Resp: [16-18] 18 BP: (132-144)/(77-94) 132/78 FHR: reactive NST x2 [place]: no regular contractions Physical Exam General: No acute distress. Appears stated age and cooperative. Lungs: Non-labored. Abdomen: Soft, non-tender, gravid. Extremities: Warm and well-perfused. No bilateral lower extremity edema or calf tenderness. Pelvic: Deferred. Neurologic: Alert and oriented x4, non-focal Lab Review: Recent Results (from the past 24 hour(s)) ECG 12 lead Collection Time: 08/04/24 11:54 AM Result Value Ref Range Ventricular Rate EKG/Min 110 BPM Atrial Rate 110 BPM OH-Interval (MSEC) 122 ms QRS-Interval (MSEC) 78 ms QT-Interval (MSEC) 334 ms QTc 452 ms P Grandy 52 degrees R Grandy 5 degrees T Grandy 25 degrees Diagnosis Sinus tachycardia Otherwise normal ECG No previous ECGs available Confirmed by SAMANTA KAPLAN M.D ([id number]) on 08/04/2024 1:23:30 PM D-dimer, quantitative Collection Time: 08/04/24 6:28 PM Result Value Ref Range D-Dimer 1,101 (H) <=499 ng/mL FEU Respiratory pathogen panel Nasopharyngeal Collection Time: 08/04/24 6:28 PM Specimen: Nasopharyngeal Result Value Ref Range Influenza A RNA Not Detected Not Detected Influenza B RNA Not Detected Not Detected RSV RNA Not Detected Not Detected COVID-19 RNA Not Detected Not Detected Coronavirus 229E RNA Not Detected Not Detected Coronavirus HKU1 RNA Not Detected Not Detected Coronavirus NL63 RNA Not Detected Not Detected Coronavirus OC43 RNA Not Detected Not Detected Adenovirus DNA Not Detected Not Detected Metapneumovirus RNA Not Detected Not Detected Rhinovirus/Enterovirus RNA Not Detected Not Detected Parainfluenza 1 RNA Not Detected Not Detected Parainfluenza 2 RNA Not Detected Not Detected Parainfluenza 3 RNA Not Detected Not Detected Parainfluenza 4 RNA Not Detected Not Detected B. pertussis DNA Not Detected Not Detected B. parapertussis DNA Not Detected Not Detected C. pneumoniae DNA Not Detected Not Detected M. pneumoniae DNA Not Detected Not Detected ASSESSMENT/PLAN Suki Leon is a 29 y.o. at 27w4d admitted for preeclampsia with severe features. #PreE w/SF - Dx based on newly elevated blood pressures requiring IV meds - presented to OSH with sustained severe range BP requiring L20 - Given 4g Mg bolus prior to transfer - BPs normotensive to mild range on admission - Admission labs CBC Hgb 11.4 Plt 278 /CMP Cr 0.56 AST 21 ALT 19/UPC 0.122 - Home regimen: None - 24 hr spotting: none - s/p Mag (stopped 07/29) due to stability - APLS labs ordered 08/04 with next labs for early onset preeclampsia with severe features Plan: - NXL 90mg (^08/01) - q72h CBC/CMP, T&S #sinus tachycardia, intermittent - 08/04 episode of tachycardia to 130-140s - EKG with sinus tachycardia x2 - asymptomatic, negative exam #Chronic headaches - has headaches inside and outside of - presenting headache feels like prior episodes - Intermittent mild headache responsive to APAP and reglan #Aortic dilation of Fetus B - 07/27 Fetus A: Ascending/isthmus of aorta is mildly enlarged today on imaging. Aortic valve size measures within normal limits and peak systolic velocity measurements are within normal limits. Difficult to assess if aortic valve is bi or tri-leaflet. - echo Twin A 08/03: WNL - echo Twin B 08/03: mildly dilated ascending aorta (0.75cm) (same as previous scan but twins moved positions) - s/p cardiology consult - plan for echo of twin B prior to discharge #lateral ventriculomegaly of twin B - formal anatomy US today for both twins #Depression/ Anxiety - Previously on SSRI, stable mood this #Rh negative - Given 08/01 #VZV equivocal - For Varivax #MO -BMI 47 #FWB: #Shay TIUP - BSUS Vertex/Vertex - Genetic screening: LR NIPT, neg carrier screening - Anatomy US: Shay Twins, no evidence of TAPS or TTTS - fUS 07/27: Twin A 1054g (79%ile), Twin B 847g (20%ile), Concordant 19.7 %. AGA of both twins. Lateral ventriculomegaly twin B, for formal anatomy US with us - formal specialized anatomy ordered, tentatively for 08/05 - BMZ^07/30 @2330 - Mg stopped 07/29 - PCN deferred - peds consult ordered for after anatomy US - MONITORING PLAN: dNST - TTTS screening: next due 08/16 #MWB - PNL: Rh Neg/Ab Neg/HIV NR/Rub Imm/RPR NR/HepB NR/GC/CT Not obtained/VZV Equiv - 1 hr GTT early 82 - 3T HIV to be obtained/RPR to be obtained in 3T - s/p flu vax 07/12/24, Tdap Needs at 28wk - Rhogam 08/01 - GBS pending - MOD: TBD - MOF: breast - MOC: nexplanon Nadiya Calix MD PhD Obstetrics & Gynecology - PGY 2 08/05/24 Cosigned by Jessica Naranjo MD at 08/05/2024 12:53 PM CDT Associated attestation - Jessica Naranjo MD - 08/05/2024 12:53 PM CDT Images from the original note were not included. MFM Attending Attestation I have seen and discussed Suki Leon with the CARLI/resident/fellow on 08/05/2024. I have evaluated the patient and reviewed the treatment plan and recommendations. I agree with the findings and the plan of care as documented in the note. Tachycardia overnight with evaluation for PE with CT-PE that was negative. Remains asymptomatic. Plan for anatomic surveys of both twins today. Blood pressures remain well controlled on nifedipine 90 mg qD. Jessica Naranjo MD Him Analyst Division of Maternal- Medicine and Ultrasound Department of Obstetrics and Gynecology [facility] 08/05/2024 08/05/2024 - - Sue Meza MD MFM Update - delayed entry due to patient care Patient with persistent tachycardia s/p hydration and d-dimer >1000. Will order CT PE per protocol given meeting YEARS criteria. Sue Meza MD 08/04/2024 - w3d - Mariela Christian MD R3 Update To bedside to evaluate patient due to new HR in the 140s, patient resting comfortably denies any SOB or CP. Reports just getting back to her room from a walk. On exam, lungs clear to auscultation, bilateral lower extremities with symmetric 1+ edema, non-tender, no erythema. Discussed with patient that at this time low concern for PE but would recommend testing to rule out. While in room patient drinking water and HR back to high 110s. Plan: - Recommendation for continued hydration - Will obtain EKG - D-dimer ordered, pending results can consider CT PE per YEARS criteria - RVP to rule out infecitous etiology Dr. Meza updated Mariela Voss MD Obstetrics and Gynecology PGY-3 08/04/2024 - 3d - Maureen Clark MD Antepartum Progress Note Gestational Age: 27w3d Admission Date: 07/29/2024 Length of stay: 6 Admission Diagnosis: preeclampsia with severe features INTERVAL EVENTS - NAEON - reactive monitoring - normotensive - echo x2 with twin B with mild aortic root dilation SUBJECTIVE No new problems. Reports active movement. No vaginal bleeding/leakage of fluid/contractions. No headache over last day Denies vision changes, SOB, chest pain, RUQ pain, new swelling changes. Review of Systems Negative except as per above. OBJECTIVE Vitals: Temp: [36.6 ??C (97.8 ??F)-36.8 ??C (98.2 ??F)] 36.7 ??C (98.1 ??F) Pulse: [92-116] 92 Resp: [16] 16 BP: (122-139)/(72-85) 128/76 FHR: reactive NST x2 [place]: no regular contractions Physical Exam General: No acute distress. Appears stated age and cooperative. Lungs: Non-labored. Abdomen: Soft, non-tender, gravid. Extremities: Warm and well-perfused. No bilateral lower extremity edema or calf tenderness. Pelvic: Deferred. Neurologic: Alert and oriented x4, non-focal Lab Review: Recent Results (from the past 24 hour(s)) Type and screen Collection Time: 08/04/24 4:48 AM Result Value Ref Range ABO Rh O Negative Abiodun, indirect Positive (A) CBC without differential Collection Time: 08/04/24 4:48 AM Result Value Ref Range WBC 12.6 (H) 3.8 - 9.9 K/cumm Hgb 12.4 11.9 - 15.5 g/dL Hct 36.5 35.6 - 45.5 % Plt 278 150 - 400 K/cumm MPV 10.2 9.1 - 12.3 fL RBC 4.17 3.90 - 5.20 M/cumm MCV 87.5 81.3 - 96.4 fL MCH 29.7 27.1 - 33.3 pg MCHC 34.0 32.3 - 35.7 g/dL RDW CV 14.1 11.1 - 14.9 % RDW SD 45.0 35.7 - 48.1 fL NRBC abs 0.00 0.00 - 0.01 K/cumm Comprehensive metabolic panel Collection Time: 08/04/24 4:48 AM Result Value Ref Range Sodium 137 135 - 145 mmol/L Potassium, pl 3.8 3.3 - 4.9 mmol/L Chloride 104 97 - 110 mmol/L CO2 22 22 - 32 mmol/L Anion gap 11 2 - 15 mmol/L BUN 8 6 - 25 mg/dL Creatinine 0.44 (L) 0.60 - 1.10 mg/dL Glucose 77 70 - 199 mg/dL Calcium 9.2 8.5 - 10.3 mg/dL Bilirubin, total 0.3 0.1 - 1.2 mg/dL Protein, pl 6.6 6.5 - 8.5 g/dL Albumin 3.3 (L) 3.5 - 5.0 g/dL Alk phos 82 40 - 130 Units/L ALT 23 7 - 45 Units/L AST 25 10 - 45 Units/L Lupus Anticoagulant Panel plus Reflexes Collection Time: 08/04/24 4:48 AM Result Value Ref Range PT 11.6 9.7 - 13.0 sec INR 1.07 0.90 - 1.20 aPTT 29 28 - 38 sec eGFR Collection Time: 08/04/24 4:48 AM Result Value Ref Range eGFR >90 >=60 mL/min/1.73 m2 ASSESSMENT/PLAN Suki Leon is a 29 y.o. at 27w3d admitted for preeclampsia with severe features. #PreE w/SF - Dx based on newly elevated blood pressures requiring IV meds - presented to OSH with sustained severe range BP requiring L20 - Given 4g Mg bolus prior to transfer - BPs normotensive to mild range on admission - Admission labs CBC Hgb 11.4 Plt 278 /CMP Cr 0.56 AST 21 ALT 19/UPC 0.122 - Home regimen: None - 24 hr spotting: none - s/p Mag (stopped 07/29) due to stability - APLS labs ordered 08/04 with next labs for early onset preeclampsia with severe features Plan: - NXL 90mg (^08/01) - q72h CBC/CMP, T&S #Chronic headaches - has headaches inside and outside of - presenting headache feels like prior episodes - Intermittent mild headache responsive to APAP and reglan #Aortic dilation of Fetus B - 07/27: Ascending/isthmus of aorta is mildly enlarged today on imaging. Aortic valve size measures within normal limits and peak systolic velocity measurements are within normal limits. Difficult to assess if aortic valve is bi or tri-leaflet. - echo Twin A 08/03: WNL - echo Twin B 08/03: mildly dilated ascending aorta (0.75cm) (same as previous scan but twins moved positions) - s/p cardiology consult - plan for echo of twin B prior to discharge #lateral ventriculomegaly of Fetus A - formal anatomy US today for both twins #Depression/ Anxiety - Previously on SSRI, stable mood this #Rh negative - Given 08/01 #VZV equivocal - For Varivax #MO -BMI 47 #FWB: #Shay TIUP - BSUS Vertex/Vertex - Genetic screening: LR NIPT, neg carrier screening - Anatomy US: Shay Twins, no evidence of TAPS or TTTS - fUS 07/27: Twin A 1054g (79%ile), Twin B 847g (20%ile), Concordant 19.7 %. AGA of both twins. Lateral ventriculomegaly twin B, for formal anatomy US with us - formal specialized anatomy ordered, tentatively for 08/04 - BMZ^07/30 @2330 - Mg stopped 07/29 - PCN deferred - peds consult deferred - MONITORING PLAN: dNST - TTTS screening: next due 08/16 #MWB - PNL: Rh Neg/Ab Neg/HIV NR/Rub Imm/RPR NR/HepB NR/GC/CT Not obtained/VZV Equiv - 1 hr GTT early 82 - 3T HIV to be obtained/RPR to be obtained in 3T - s/p flu vax 07/12/24, Tdap Needs at 28wk - Rhogam 08/01 - GBS pending - MOD: TBD - MOF: breast - MOC: nexplanon Nadiya Calix MD PhD Obstetrics & Gynecology - PGY 2 08/04/24 Cosigned by Jessica Naranjo MD at 08/04/2024 11:38 AM CDT Associated attestation - Jessica Naranjo MD - 08/04/2024 11:38 AM CDT Images from the original note were not included. MFM Attending Attestation I have seen and discussed Suki Leon with the CARLI/resident/fellow on 08/04/2024. I have evaluated the patient and reviewed the treatment plan and recommendations. I agree with the findings and the plan of care as documented in the note. Preeclampsia with severe features with blood pressures well controlled within the last 24 hours on nifedipine XL 90 mg. echos performed yesterday for MCDA twins with mild aortic root dilation of one of the fetuses (twin B on the pediatric cardiology scan). The other twin (which we are now calling twin A) was noted to have mild bilateral ventriculomegaly on the TTTS/TAPS screen. We plan for complete anatomic survey with particular focus on [employer] anatomy of twin A today. Jessica Naranjo MD Him Analyst Division of Maternal- Medicine and Ultrasound Department of Obstetrics and Gynecology [facility] 08/04/2024 08/03/2024 - 27w2d - [employer] [facility] [employer] [facility] MD Antepartum Progress Note Gestational Age: 27w2d Admission Date: 07/29/2024 Length of stay: 5 Admission Diagnosis: preeclampsia with severe features INTERVAL EVENTS - NAEON - reactive monitoring - normotensive to MR BPs - plan for anatomy US and echo x2 today SUBJECTIVE No new problems. Reports active movement. No vaginal bleeding/leakage of fluid/contractions. SHIPLEY gone this morning, still medication responsive Denies vision changes, SOB, chest pain, RUQ pain, new swelling changes. Review of Systems Negative except as per above. OBJECTIVE Vitals: Temp: [36.6 ??C (97.8 ??F)-37 ??C (98.6 ??F)] 36.9 ??C (98.4 ??F) Pulse: [86-115] 90 Resp: [16-18] 16 BP: (128-143)/(77-98) 137/84 FHR: reactive NST x2 [place]: no regular contractions Physical Exam General: No acute distress. Appears stated age and cooperative. Lungs: Non-labored. Abdomen: Soft, non-tender, gravid. Extremities: Warm and well-perfused. No bilateral lower extremity edema or calf tenderness. Pelvic: Deferred. Neurologic: Alert and oriented x4, non-focal Lab Review: Recent Results (from the past 24 hour(s)) US Ob Limited Collection Time: 08/02/24 11:48 AM Result Value Ref Range Fetus# Fetus1 Estimated Weight 912 g&grams Placenta Details anterior Presentation Vertex; Maternal right- low Fetus# Fetus2 Estimated Weight 1,148 g&grams Placenta Details anterior Presentation Vertex; Maternal left- high ASSESSMENT/PLAN Suki Leon is a 29 y.o. at 27w2d admitted for preeclampsia with severe features. #PreE w/SF - Dx based on newly elevated blood pressures requiring IV meds - presented to OSH with sustained severe range BP requiring L20 - Given 4g Mg bolus prior to transfer - BPs normotensive to mild range on admission - Admission labs CBC Hgb 11.4 Plt 278 /CMP Cr 0.56 AST 21 ALT 19/UPC 0.122 - Home regimen: None - 24 hr spottin - s/p Mag (stopped 07/29) due to stability - APLS labs ordered 08/04 with next labs for early onset preeclampsia with severe features Plan: - NXL 90mg (^08/01) - q72h CBC/CMP, T&S #Chronic headaches - has headaches inside and outside of - presenting headache feels like prior episodes - Intermittent mild headache responsive to APAP and compazine #Aortic dilation of Fetus A - 07/27 Fetus A: Ascending/isthmus of aorta is mildly enlarged today on imaging. Aortic valve size measures within normal limits and peak systolic velocity measurements are within normal limits. Difficult to assess if aortic valve is bi or tri-leaflet. - cards c/s: echo scheduled for 08/03 (today) #Lateral ventriculomegaly of twin B - formal anatomy US today for both twins - echo scheduled for today #Depression/ Anxiety - Previously on SSRI, stable mood this #Rh negative - Given 08/01 #VZV equivocal - For Varivax #MO -BMI 47 #FWB: #Shay TIUP - BSUS Vertex/Vertex - Genetic screening: LR NIPT, neg carrier screening - Anatomy US: Shay Twins, no evidence of TAPS or TTTS - fUS 07/27: Twin A 1054g (79%ile), Twin B 847g (20%ile) - Most recent US on 07/27 without e/o TTTS or TAPS - Us 07/27: Concordant 19.7 %. AGA of both twins. Lateral ventriculomegaly twin B, for formal anatomy US with us - formal specialized anatomy ordered, tentatively for 08/03 - BMZ^07/30 @2330 - Mg stopped 07/29 - PCN deferred - peds consult deferred - MONITORING PLAN: dNST - TTTS screening: next due 08/16 #MWB - PNL: Rh Neg/Ab Neg/HIV NR/Rub Imm/RPR NR/HepB NR/GC/CT Not obtained/VZV Equiv - 1 hr GTT early 82 - 3T HIV to be obtained/RPR to be obtained in 3T - s/p flu vax 07/12/24, Tdap Needs at 28wk - Rhogam 08/01 - GBS pending - MOD: TBD - MOF: breast - MOC: nexplanon Nadiya Calix MD PhD Obstetrics & Gynecology - PGY 2 08/03/24 Cosigned by Jessica Naranjo MD at 08/03/2024 8:53 AM CDT Associated attestation - Jessica Naranjo MD - 08/03/2024 8:53 AM CDT Images from the original note were not included. MFM Attending Attestation I have seen and discussed Suki Leon with the CARLI/resident/fellow on 08/03/2024. I have evaluated the patient and reviewed the treatment plan and recommendations. I agree with the findings and the plan of care as documented in the note. Plan for echocardiograms today for both twins. Anatomic survey of both twins today vs tomorrow pending scheduling with echocardiograms. Blood pressures remain well controlled on nifedipine XL 90 mg qD. Jessica Naranjo MD Him Analyst Division of Maternal- Medicine and Ultrasound Department of Obstetrics and Gynecology [facility] 08/03/2024 08/02/2024 - 27w1d - Maureen Clark MD Antepartum Progress Note Gestational Age: 27w1d Admission Date: 07/29/2024 Length of stay: 4 Admission Diagnosis: preeclampsia with severe features INTERVAL EVENTS - NAEON - reactive monitoring - normotensive to MR BPs SUBJECTIVE No new problems. Reports active movement. No vaginal bleeding/leakage of fluid/contractions. SHIPLEY improved with APAP and compazine PRN Denies vision changes, SOB, chest pain, RUQ pain, new swelling changes. Review of Systems Negative except as per above. OBJECTIVE Vitals: Temp: [36.5 ??C (97.7 ??F)-36.9 ??C (98.4 ??F)] 36.5 ??C (97.7 ??F) Pulse: [80-107] 96 Resp: [18] 18 BP: (128-143)/(73-89) 128/84 FHR: reactive NST x2 [place]: no regular contractions Physical Exam General: No acute distress. Appears stated age and cooperative. Lungs: Non-labored. Abdomen: Soft, non-tender, gravid. Extremities: Warm and well-perfused. No bilateral lower extremity edema or calf tenderness. Pelvic: Deferred. Neurologic: Alert and oriented x4, non-focal Lab Review: No results found for this or any previous visit (from the past 24 hour(s)). ASSESSMENT/PLAN Suki Leon is a 29 y.o. at 27w1d admitted for preeclampsia with severe features. #PreE w/SF - Dx based on SR blood pressures requiring IV meds - presented to OSH with sustained severe range BP requiring L20 - Given 4g Mg bolus prior to transfer - BPs normotensive to mild range on admission - Admission labs CBC Hgb 11.4 Plt 278 /CMP Cr 0.56 AST 21 ALT 19/UPC 0.122 - Home regimen: None - 24 hr spottin - s/p Mag (stopped 07/29) due to stability - APLS labs ordered 08/04 with next labs for early onset preeclampsia with severe features Plan: - NXL 90mg (^08/01) - q72h CBC/CMP, T&S #Chronic headaches - has headaches inside and outside of - presenting headache feels like prior episodes - Intermittent mild headache responsive to APAP and compazine #Aortic dilation of Fetus A - 07/27 Fetus A: Ascending/isthmus of aorta is mildly enlarged today on imaging. Aortic valve size measures within normal limits and peak systolic velocity measurements are within normal limits. Difficult to assess if aortic valve is bi or tri-leaflet. - cards c/s 08/01 and determining which team it goes to, will follow up 08/02 #Depression/ Anxiety - Previously on SSRI, stable mood this #Rh negative - Given 08/01 #VZV equivocal - For Varivax #MO -BMI 47 #FWB: #Shay TIUP - BSUS Vertex/Vertex - Genetic screening: LR NIPT, neg carrier screening - Anatomy US: Shay Twins, no evidence of TAPS or TTTS - fUS 07/27: Twin A 1054g (79%ile), Twin B 847g (20%ile) - Most recent US on 07/27 without e/o TTTS or TAPS - Us 07/27: Concordant 19.7 %. AGA of both twins. - BMZ^07/30 @2330 - Mg stopped 07/29 - PCN deferred - peds consult deferred - MONITORING PLAN: dNST - TTTS screening: next due 08/02 #MWB - PNL: Rh Neg/Ab Neg/HIV NR/Rub Imm/RPR NR/HepB NR/GC/CT Not obtained/VZV Equiv - 1 hr GTT early 82 - 3T HIV to be obtained/RPR to be obtained in 3T - s/p flu vax 07/12/24, Tdap Needs at 28wk - Rhogam 08/01 - GBS pending - MOD: TBD - MOF: breast - MOC: nexplanon Nadiya Calix MD PhD Obstetrics & Gynecology - PGY 2 08/02/24 Cosigned by Jessica Naranjo MD at 08/02/2024 11:34 AM CDT Associated attestation - Jessica Naranjo MD - 08/02/2024 11:34 AM CDT Images from the original note were not included. MFM Attending Attestation I have seen and discussed Suki Leon with the CARLI/resident/fellow on 08/02/2024. I have evaluated the patient and reviewed the treatment plan and recommendations. I agree with the findings and the plan of care as documented in the note. Blood pressures well continued over last 24 hours, taking nifedipine XL 90 mg qD. Headaches continue to respond to medication and are consistent with her baseline headaches outside of the hospital. TTTS/TAPS screening today for MCDA twin . Jessica Naranjo MD Him Analyst Division of Maternal- Medicine and Ultrasound Department of Obstetrics and Gynecology [facility] 08/02/2024 08/01/2024 - 0d - Millie Pierce LCSW Reason for Admission Pt (Suki Leon 1995) was admitted on 07/29/2024 for Preeclampsia, unspecified trimester [O14.90]. Pt discussed in DCAM rounds with medical team. Per DCAM rounds, pt remains admitted to the [facility] due to ongoing medical needs. SW to follow for coping, adjustment to diagnosis as needed, and assess for social needs. ADD: Anticipated admission until delivery. SW remains available. ARACELIS Tyler, HOPPER ATTENDANT [facility] 08/01/2024 - w0d - Maureen Clark MD Antepartum Progress Note Gestational Age: 27w0d Admission Date: 07/29/2024 Length of stay: 3 Admission Diagnosis: preeclampsia with severe features INTERVAL EVENTS - NAEON - reactive monitoring - mostly MR BPs, non sustained SR, increased NXL to 90mg - CBC/CMP WNL SUBJECTIVE No new problems. Reports active movement. No vaginal bleeding/leakage of fluid/contractions. SHIPLEY this morning, trying compazine Denies vision changes, SOB, chest pain, RUQ pain, new swelling changes. Review of Systems Negative except as per above. OBJECTIVE Vitals: Temp: [36.7 ??C (98 ??F)-36.8 ??C (98.3 ??F)] 36.8 ??C (98.3 ??F) Pulse: [77-100] 100 Resp: [18] 18 BP: (138-162)/(80-95) 143/89 FHR: reactive NST x2 rare age appropriate variables, limited discontinuity [place]: no regular contractions Physical Exam General: No acute distress. Appears stated age and cooperative. Lungs: Non-labored. Abdomen: Soft, non-tender, gravid. Extremities: Warm and well-perfused. No bilateral lower extremity edema or calf tenderness. Pelvic: Deferred. Neurologic: Alert and oriented x4, non-focal Lab Review: Recent Results (from the past 24 hour(s)) Type and screen Collection Time: 08/01/24 4:33 AM Result Value Ref Range Abiodun, indirect Negative ABO Rh O Negative CBC without differential Collection Time: 08/01/24 4:33 AM Result Value Ref Range WBC 10.6 (H) 3.8 - 9.9 K/cumm Hgb 11.7 (L) 11.9 - 15.5 g/dL Hct 35.1 (L) 35.6 - 45.5 % Plt 269 150 - 400 K/cumm MPV 9.9 9.1 - 12.3 fL RBC 3.96 3.90 - 5.20 M/cumm MCV 88.6 81.3 - 96.4 fL MCH 29.5 27.1 - 33.3 pg MCHC 33.3 32.3 - 35.7 g/dL RDW CV 14.3 11.1 - 14.9 % RDW SD 46.5 35.7 - 48.1 fL NRBC abs 0.00 0.00 - 0.01 K/cumm Comprehensive metabolic panel Collection Time: 08/01/24 4:33 AM Result Value Ref Range Sodium 140 135 - 145 mmol/L Potassium, pl 3.8 3.3 - 4.9 mmol/L Chloride 106 97 - 110 mmol/L CO2 23 22 - 32 mmol/L Anion gap 11 2 - 15 mmol/L BUN 7 6 - 25 mg/dL Creatinine 0.46 (L) 0.60 - 1.10 mg/dL Glucose 75 70 - 199 mg/dL Calcium 9.2 8.5 - 10.3 mg/dL Bilirubin, total 0.2 0.1 - 1.2 mg/dL Protein, pl 6.1 (L) 6.5 - 8.5 g/dL Albumin 3.1 (L) 3.5 - 5.0 g/dL Alk phos 69 40 - 130 Units/L ALT 30 7 - 45 Units/L AST 28 10 - 45 Units/L eGFR Collection Time: 08/01/24 4:33 AM Result Value Ref Range eGFR >90 >=60 mL/min/1.73 m2 ASSESSMENT/PLAN Suki Leon is a 29 y.o. at 27w0d p/w newly diagnosed preeclampsia with SF. #PreE w/SF - Dx based on newly elevated blood pressures requiring IV medications - presented to OSH with sustained severe range BP requiring L20 - Given 4g Mg bolus prior to transfer - BPs normotensive to mild range on admission - Admission labs CBC Hgb 11.4 Plt 278 /CMP Cr 0.56 AST 21 ALT 19/UPC 0.122 - Home regimen: None - 24 hr spottin - s/p Mag (stopped 07/29) due to stability - APLS labs ordered 08/04 with next labs for early onset preeclampsia with severe features Plan: - NXL 90mg (^08/01) - q72h CBC/CMP, T&S #Chronic headaches - has headaches inside and outside of - presenting headache feels like prior episodes - Intermittent mild headache responsive to APAP and compazine #Aortic dilation of Fetus A - 07/27 Fetus A: Ascending/isthmus of aorta is mildly enlarged today on imaging. Aortic valve size measures within normal limits and peak systolic velocity measurements are within normal limits. Difficult to assess if aortic valve is bi or tri-leaflet. - cards c/s 08/01, will see #Depression/ Anxiety - Previously on SSRI, stable mood this #Rh negative - given 08/01 #VZV equivocal - For Varivax #MO -BMI 47 #FWB: #Shay TIUP - BSUS Vertex/Vertex - Genetic screening: LR NIPT, neg carrier screening - Anatomy US: Shay Twins, no evidence of TAPS or TTTS - fUS 07/27: Twin A 1054g (79%ile), Twin B 847g (20%ile) - Most recent US on 07/27 without e/o TTTS or TAPS - Us 07/27: Concordant 19.7 %. AGA of both twins. - BMZ^07/30 @2330 - Mg stopped 07/29 - PCN deferred - peds consult deferred - MONITORING PLAN: dNST - TTTS screening: next due 08/02 #MWB - PNL: Rh Neg/Ab Neg/HIV NR/Rub Imm/RPR NR/HepB NR/GC/CT Not obtained/VZV Equiv - 1 hr GTT early 82 - 3T HIV to be obtained/RPR to be obtained in 3T - s/p flu vax 07/12/24, Tdap Needs at 28wk - Rhogam 08/01 - GBS To be obtained - MOD: TBD - MOF: breast - MOC: nexplanon Nadiya Calix MD PhD Obstetrics & Gynecology - PGY 2 08/01/24 Cosigned by Jessica Naranjo MD at 08/01/2024 12:53 PM CDT Associated attestation - Jessica Naranjo MD - 08/01/2024 12:53 PM CDT Images from the original note were not included. MFM Attending Attestation I have seen and discussed Suki Leon with the CARLI/resident/fellow on 08/01/2024. I have evaluated the patient and reviewed the treatment plan and recommendations. I agree with the findings and the plan of care as documented in the note. Preeclampsia with severe features by severe range blood pressures. Increase in nifedipine XL dose to 90 mg today. Labs continue to be normal. Has chronic headaches that are responsive to medications; feels that they are consistent with her chronic headaches. Encouraged patient to notify the team for any headaches but especially those that feel different from her baseline as they may be more suggestive of a preeclampsia headache. Jessica Naranjo MD Him Analyst Division of Maternal- Medicine and Ultrasound Department of Obstetrics and Gynecology [facility] 08/01/2024 07/31/2024 - 26w6d - Luís Nazia, Maureen Mancini MD Antepartum Progress Note Gestational Age: 26w6d Admission Date: 07/29/2024 Length of stay: 2 Admission Diagnosis: preeclampsia with severe features INTERVAL EVENTS - NAEON - reactive monitoring - >50% MR BPs, increased NXL to 60mg SUBJECTIVE No new problems. Reports active movement. No vaginal bleeding/leakage of fluid/contractions. Denies SHIPLEY, vision changes, SOB, chest pain, RUQ pain, new swelling changes. Review of Systems Negative except as per above. OBJECTIVE Vitals: BP 139/85 Pulse 90 Temp 36.9 ??C (98.5 ??F) (Oral) Resp 16 Ht 165.1 cm (5' 5 ) LMP 01/19/2024 (Approximate) SpO2 98% BMI 47.26 kg/m?? FHR: reactive NST x2 rare variables with 1 hour reassuring monitoring afterwards [place]: no regular contractions Physical Exam General: No acute distress. Appears stated age and cooperative. Lungs: Non-labored. Abdomen: Soft, non-tender, gravid. Extremities: Warm and well-perfused. No bilateral lower extremity edema or calf tenderness. Pelvic: Deferred. Neurologic: Alert and oriented x4, non-focal Lab Review: Recent Results (from the past 24 hour(s)) Magnesium Collection Time: 07/31/24 5:07 AM Result Value Ref Range Magnesium 1.9 1.4 - 2.5 mg/dL CBC without differential Collection Time: 07/31/24 5:09 AM Result Value Ref Range WBC 11.0 (H) 3.8 - 9.9 K/cumm Hgb 10.8 (L) 11.9 - 15.5 g/dL Hct 33.1 (L) 35.6 - 45.5 % Plt 257 150 - 400 K/cumm MPV 10.3 9.1 - 12.3 fL RBC 3.71 (L) 3.90 - 5.20 M/cumm MCV 89.2 81.3 - 96.4 fL MCH 29.1 27.1 - 33.3 pg MCHC 32.6 32.3 - 35.7 g/dL RDW CV 14.3 11.1 - 14.9 % RDW SD 46.8 35.7 - 48.1 fL NRBC abs 0.02 (H) 0.00 - 0.01 K/cumm ASSESSMENT/PLAN Suki Leon is a 29 y.o. at 26w6d p/w newly diagnosed preeclampsia with SF #PreE w/SF - Dx based on newly elevated blood pressures & SHIPLEY/ blurred vision changes unrelieved by APAP - presented to OSH with sustained severe range BP requiring L20 - Given 4g Mg bolus prior to transfer - Otherwise asymptomatic - BPs normotensive to mild range on arrival to [facility] since transfer - Will give APAP + compazine x1 for SHIPLEY -Admission labs CBC Hgb 11.4 Plt 278 /CMP Cr 0.56 AST 21 ALT 19/UPC 0.122 -Repeat labs daily -Home regimen: None -24 hr spotting: L20 - s/p Mag (stopped 07/29) due to stability Plan: - NXL 60mg (^07/31) - q72h CBC/CMP, T&S #Shay Twins #Aortic dilation of Fetus A - Most recent US on 07/27 without e/o TTTS or TAPS - Us 07/27: Concordant 19.7 %. AGA of both twins. > Fetus A: Ascending/isthmus of aorta is mildly enlarged today on imaging. Aortic valve size measures within normal limits and peak systolic velocity measurements are within normal limits. Difficult to assess if aortic valve is bi or tri-leaflet. - Continue US screening while inpatient, next due 08/02 - cards c/s 08/01 #Depression/ Anxiety - Previously on SSRI #Rh negative - Consider Rhogam during admission as has not yet received #VZV NI - For Varivax #MO -BMI 47 #FWB: #Shay TIUP - BSUS Vertex/Vertex - Genetic screening: LR NIPT, neg carrier screening - Anatomy US: Shay Twins, no evidence of TAPS or TTTS - fUS 07/27: Twin A 1054g (79%ile), Twin B 847g (20%ile) - BMZ^07/30 @2330 - Mg @ 2g/hr - PCN deferred - peds consult deferred - MONITORING PLAN: dNST #MWB - PNL: Rh Neg/Ab Neg/HIV NR/Rub Imm/RPR NR/HepB NR/GC/CT Not obtained/VZV Equiv - 1 hr GTT early 82 - 3T HIV to be obtained/RPR to be obtained in 3T - s/p flu vax 07/12/24, Tdap Needs - Rhogam Consider while inpatient - GBS To be obtained - MOD: TBD - MOF: breast - MOC: nexplanon Nadiya Calix MD PhD Obstetrics & Gynecology - PGY 2 07/31/24 Cosigned by Nini Knapp MD at 07/31/2024 8:13 AM CDT Associated attestation - Nini Knapp MD - 07/31/2024 8:13 AM CDT I have seen and examined the patient on 07/31/24. I agree with the findings and plan of care as documented in the resident's/fellow's note.. 07/30/2024 - 26w5d - Maureen Clark MD Antepartum Progress Note Gestational Age: 26w5d Admission Date: 07/29/2024 Length of stay: 1 Admission Diagnosis: preeclampsia with severe features INTERVAL EVENTS - NAEON - reactive monitoring - stopped Mag due to stable BPs, started RUL30sl - normotensive to infrequent MR BPs SUBJECTIVE No new problems. Reports active movement. No vaginal bleeding/leakage of fluid/contractions. Denies SHIPLEY, vision changes, SOB, chest pain, RUQ pain, new swelling changes. Review of Systems Negative except as per above. OBJECTIVE Vitals: BP 127/67 Pulse 100 Temp 37.1 ??C (98.7 ??F) (Oral) Resp 16 Ht 165.1 cm (5' 5 ) LMP 01/19/2024 (Approximate) SpO2 93% BMI 47.26 kg/m?? FHR: reactive NST x2 [place]: no regular contractions Physical Exam General: No acute distress. Appears stated age and cooperative. Lungs: Non-labored. Abdomen: Soft, non-tender, gravid. Extremities: Warm and well-perfused. No bilateral lower extremity edema or calf tenderness. Pelvic: Deferred. Neurologic: Alert and oriented x4, non-focal Lab Review: Recent Results (from the past 24 hour(s)) Magnesium Collection Time: 07/30/24 4:49 AM Result Value Ref Range Magnesium 2.3 1.4 - 2.5 mg/dL CBC without differential Collection Time: 07/30/24 4:49 AM Result Value Ref Range WBC 10.2 (H) 3.8 - 9.9 K/cumm Hgb 10.9 (L) 11.9 - 15.5 g/dL Hct 32.5 (L) 35.6 - 45.5 % Plt 262 150 - 400 K/cumm MPV 10.0 9.1 - 12.3 fL RBC 3.65 (L) 3.90 - 5.20 M/cumm MCV 89.0 81.3 - 96.4 fL MCH 29.9 27.1 - 33.3 pg MCHC 33.5 32.3 - 35.7 g/dL RDW CV 14.4 11.1 - 14.9 % RDW SD 46.5 35.7 - 48.1 fL NRBC abs 0.00 0.00 - 0.01 K/cumm Comprehensive metabolic panel Collection Time: 07/30/24 4:49 AM Result Value Ref Range Sodium 140 135 - 145 mmol/L Potassium, pl 3.9 3.3 - 4.9 mmol/L Chloride 108 97 - 110 mmol/L CO2 22 22 - 32 mmol/L Anion gap 10 2 - 15 mmol/L BUN 5 (L) 6 - 25 mg/dL Creatinine 0.46 (L) 0.60 - 1.10 mg/dL Glucose 100 70 - 199 mg/dL Calcium 8.6 8.5 - 10.3 mg/dL Bilirubin, total 0.3 0.1 - 1.2 mg/dL Protein, pl 6.2 (L) 6.5 - 8.5 g/dL Albumin 3.2 (L) 3.5 - 5.0 g/dL Alk phos 70 40 - 130 Units/L ALT 22 7 - 45 Units/L AST 23 10 - 45 Units/L eGFR Collection Time: 07/30/24 4:49 AM Result Value Ref Range eGFR >90 >=60 mL/min/1.73 m2 ASSESSMENT/PLAN Suki Leon is a 29 y.o. at 26w5d p/w newly diagnosed preeclampsia with SF #PreE w/SF - Dx based on newly elevated blood pressures & [place]/ blurred vision changes unrelieved by APAP - presented to OSH with sustained severe range BP requiring L20 - Given 4g Mg bolus prior to transfer - Otherwise asymptomatic - BPs normotensive to mild range on arrival to [facility] since transfer - Will give APAP + compazine x1 for SHIPLEY -Admission labs CBC Hgb 11.4 Plt 278 /CMP Cr 0.56 AST 21 ALT 19/UPC 0.122 -Repeat labs daily -Home regimen: None -24 hr spotting: L20 - s/p Mag (stopped 07/29) due to stability Plan: - NXL 30mg (^07/29) - q48h CBC/CMP, space after next T&S if stable #Shay Twins #Aortic dilation of Fetus A - Most recent US on 07/27 without e/o TTTS or TAPS - Us 07/27: Concordant 19.7 %. AGA of both twins. > Fetus A: Ascending/isthmus of aorta is mildly enlarged today on imaging. Aortic valve size measures within normal limits and peak systolic velocity measurements are within normal limits. Difficult to assess if aortic valve is bi or tri-leaflet. - Continue US screening while inpatient, next due 08/02 #Depression/ Anxiety - Previously on SSRI #Rh negative - Consider Rhogam during admission as has not yet received #VZV NI - For Varivax #MO -BMI 47 #FWB: #Shay TIUP - BSUS Vertex/Vertex - Genetic screening: LR NIPT, neg carrier screening - Anatomy US: Shay Twins, no evidence of TAPS or TTTS - fUS 07/27: Twin A 1054g (79%ile), Twin B 847g (20%ile) - BMZ^07/30 @2330 - Mg @ 2g/hr - PCN deferred - peds consult ordered - MONITORING PLAN: dNST #MWB - PNL: Rh Neg/Ab Neg/HIV NR/Rub Imm/RPR NR/HepB NR/GC/CT Not obtained/VZV Equiv - 1 hr GTT early 82 - 3T HIV to be obtained/RPR to be obtained - s/p flu vax 07/12/24, Tdap Needs - Rhogam Consider while inpatient - GBS To be obtained - MOD: TBD - MOF: breast - MOC: nexplanon Nadiya Calix MD PhD Obstetrics & Gynecology - PGY 2 07/30/24 Cosigned by Nini Knapp MD at 07/30/2024 9:13 AM CDT Associated attestation - Nini Knapp MD - 07/30/2024 9:13 AM CDT I have seen and examined the patient on 07/30/24. I agree with the findings and plan of care as documented in the resident's/fellow's note.. Progress Notes - Hospital En counter - 07/29/2024 - GA:26w4d 07/29/2024 - w4d - Nelson Short MD [facility] Obstetrics Triage Note Chief Complaint: elevated blood pressure, headache Estimated Date of Delivery: 10/31/24 Provider: [place] [employer] - Annalee [employer]: STEPHON Subjective HPI: Suki Leon is a 29 y.o. female at 26w3d weeks gestation, dated by 8 wk ultrasound, no consistent with LMP with Estimated Date of Delivery: 10/31/24 who presents to [facility] L&D Triage for elevated blood pressure. Her was notable for mono-di twin , proximal dilation of aorta in twin A, maternal obesity, history of recurrent UTI's, VZV non-immune, and elevated blood pressure with proteinuria, anxiety, and Rh negative. Today, patient reports elevated blood pressure with home readings in the 140s/100s, as well as a headache starting this morning and gradually worsening. It is refractory to Tylenol. There is associated spots in her vision, although this also happens at baseline and may attributed to astigmatism. She was seen by MFM yesterday and preeclampsia labs were negative. She also reports intermittent nausea, vomiting, and constipation not causing acute distress. She denies dizziness, LOC, abdominal pain, itching, numbness, and tingling. She denies alcohol, tobacco, and recreational drug use. Rest of ROS as follows. 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 Past Medical History: Diagnosis Date Anxiety GERD (gastroesophageal reflux disease) IBS (irritable bowel syndrome) Migraine headache Obesity Chronic hypertension: No Diabetes: No Asthma: No Past Surgical History: Procedure Laterality Date CHOLECYSTECTOMY Social History Tobacco Use Smoking status: Never Smokeless tobacco: Never Substance and Sexual Activity Drug use: Never Comment: 2 drink tolerence, no mj, pills or drugs Sexual activity: Yes Alcohol Use: Not At Risk (07/28/2024) AUDIT-C Frequency of Alcohol Consumption: Never Average Number of Drinks: Patient does not drink Frequency of Binge Drinking: Never Support System: Supported by partner Safe at home: Yes family history includes Anxiety disorder in her brother and mother; Breast cancer (age of onset: 61) in her mother; Deep vein thrombosis in her maternal grandmother; Diabetes in an other family member; Diabetes type II in her maternal grandfather; Gallbladder disease in an other family member; Heart attack in her maternal grandmother; Heart disease in an other family member; Heart failure in her paternal grandfather; Hypertension in her paternal grandmother and another family member; Lung cancer in her paternal grandfather; Ulcers in her father. Family history of bleeding or clotting disorders: No Family history of defects, genetic disorders, or developmental delay: No No Known Allergies HOME MEDICATIONS : aspirin 81 mg chewable tablet cholecalciferol (VITAMIN D-3) 2000 unit tablet ibuprofen (ADVIL,MOTRIN) 400 mg tablet no115/iron/folic acid ( 19 ORAL) progesterone (PROMETRIUM) 200 mg capsule metoclopramide (REGLAN) 10 mg tablet Review of Systems: Review of systems per HPI and otherwise all systems are negative Objective Vitals: Pulse: [93-104] 93 BP: (135-166)/(69-89) 152/76 Physical Exam: General: NAD, mood appropriate Cardiovascular: Regular rate and rhythm Pulmonary: Clear to ausculation bilaterally Abdomen: Gravid, non-tender Extremities: Warm and well perfused Speculum Exam: deferred Cervix: deferred Monitoring: External Monitor - Baseline: 130 bpm, Variability: Moderate (Between 6 and 25 BPM), Accelerations: Acceleration 15x15, Decelerations: none Uterine Activity: No contractions seen on toco Interpretation: Reactive Ultrasound: Cephalic presentation Anterior placenta Previa: No Labs: Lab Results Component Value Date ABORH O Negative 06/18/2024 IDCOOMB Negative ABSC 06/18/2024 [id number] Nonreactive 05/20/2024 LABRPR Nonreactive 05/20/2024 RUBELIGG Reactive 05/20/2024 HEPBSAG Nonreactive 05/20/2024 VZVIGG Equivocal (A) 05/20/2024 Rh neg/Ab N/A/HIV neg (Resulted on: 05/20/24) 3rd trimester (>28 wga):no/Rub immune/RPR neg/HepB neg/HepC neg/VZV non-immune/GC/CT N/A GBS N/A Assessment/Plan Active Problems: No Active Problems: There are no active problems currently on the Problem List. Please update the Problem List and refresh. Suki Leon is a 29 y.o. female at 26w3d weeks gestation, dated by 8 wk ultrasound, no consistent with LMP with Estimated Date of Delivery: 10/31/24 who presents to [facility] Triage for elevated blood pressure. - SVE: deferred - FHT: Category I reassuring. - TOCO: no contractions - Headache: acetaminophen 650 mg q4 hours PRN, consider diphenhydramine for refractory symtpoms. - Hypertension: BP 166/89 initially, improving with IV labetalol. Plan to continue labetalol per protocol. - Concern for preeclampsia given headache and visual changes. Repeat labs. Plan to start magnesium and betamethasone, transfer to [facility] for further management. Plan discussed with Dr. Sterling. Norma Hagan MD Family Medicine PGY-2 [facility] Cosigned by Kodak Sterling MD at 08/02/2024 8:59 AM CDT Progress Notes - Office Visi t - 07/27/2024 - GA:26w2d 07/27/2024 - w2d - Ely Tellez MD Suki Leon (1995) returns today for follow-up co management visit. Suki Leon (1995) is complicated by monochorionic diamniotic twin gestation. This is her 1st . Her is also complicated by uterine irritability for which she was currently taking ibuprofen 400 mg every 6 hours on odd calendar days. Since her last visit Suki Leon (1995) has not demonstrated clear- cut evidence of progressive labor. She reports no vaginal bleeding spotting leakage of amniotic fluid. She was feeling the babies moving. It was still difficult to discern when movements occur which baby is moving. Suki Leon (1995) is alert and oriented. Current weight 284 lbs. This is a change of 4 lbs. Pupils are equal and reactive to light and accommodation. Cranial nerves 2-12 are intact. Neck is supple. Thyroid is not detected to be enlarged. No cervical lymphadenopathy is identified. Respiratory effort is normal. Heart has regular rate and rhythm. Breasts are not examined. Liver is not palpated. Spleen is not palpated. Uterus is palpable. Fundal height today measures 29 cm. heart rate is detected by Doppler auscultation. Extremities without clear-cut evidence of deep vein thrombosis. Pelvic exam is deferred. Ultrasound performed today prior to the office visit reveals monochorionic diamniotic twin at 26 weeks and 2 days. Twin A is in vertex presentation. Twin A has an anterior placenta. The deepest vertical pocket of amniotic fluid in the gestational sac of twin A measures 4.4 cm. Growth of twin A is evaluated. The estimated weight of twin A is 1054 g. This is the 79th percentile for assigned gestational age. The interval growth of twin A has been appropriate. The re-evaluation of images thought to be suboptimal in her echocardiogram performed last visit have been reviewed. There is persistent evidence of proximal dilation of the aorta. This may be consistent with coarctation of the aorta. Twin B is in vertex presentation. Twin B has an anterior placenta. The deepest vertical pocket of amniotic fluid measures 3.0 cm. Growth of twin B is evaluated. The estimated weight of twin B is 847 g. This is the 20th percentile for assigned gestational age. No abnormalities of anatomy are detected in twin B. While reassuring ultrasound can not identify all defects. The inter twin growth discordance is 19.7%. Umbilical artery Doppler blood flow testing and middle cerebral artery Doppler blood flow testing are reassuring and not suggestive of twin anemia polycythemia or severe twin-twin transfusion syndrome. The cervix is evaluated by transvaginal ultrasonography. Cervical length is 37.0 mm. There is no endocervical funneling. Cervical length is improved in comparison to most recent prior assessment. Clinical correlation is recommended. Assessment and problem list: 1. Monochorionic diamniotic twin at 26 weeks and 2 days with estimated date of confinement of October 31, 2024. Today's ultrasound is notable for slight improvement of intertwin growth discordance with twin A growing at the 79th percentile and twin B at the 20th percentile. The inter twin growth discordance is 19.7%. There is no clear-cut evidence of twin-twin transfusion. 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 Today we have elected not to pursue echocardiogram at [facility] as the likelihood of identifying a change in the heart of twin a that would require treatment is minimal. After delivery echocardiogram on twin A should be performed. 2. Maternal obesity. Weight gain thus far in has been 12 lb. So far the maternal weight gain is normal for twin . 1 hour 50 g glucose challenge test has been scheduled by Dr. Mantilla 3. History of recurrent urinary tract infections. This appears to be a resolved/quiescent historical problem. Today's urine dipstick did not indicate presence of a UTI. 4. New onset blood pressure elevation and proteinuria. Suki Leon (1995) was quite anxious regarding the echocardiogram/ultrasound performed prior to her office visit. I am somewhat suspicious that her blood pressures today are the reflection of that anxiety. Unfortunately today she does have 1+ proteinuria. Laboratory testing to look for other markers suspicious for preeclampsia are being drawn today results should be available by tomorrow. Today I had a long discussion with Suki Leon (1995) regarding the possibility of preeclampsia. Low-dose aspirin and high-dose methyl folate may be the most effective ways to prevent preeclampsia. Persistent hypertension may require antihypertensive therapy. Blood pressure elevations persist Procardia XL 30 mg once daily may be a reasonable 1st step in controlling blood pressure. In addition to having an affect on blood pressure it may also have an affect on labor. Today we did not initiate antihypertensive therapy. Today I have recommended that Suki Leon (1995) be seen next week. We have scheduled an appointment here but hopefully she will make arrangements to see Dr. Mantilla closer to home next week and assess blood pressure and urine protein and clinical manifestations that may represent preeclampsia. If she was unable to have that appointment scheduled we will be seeing her here. She was also scheduled here in 2 weeks at which time follow-up ultrasound is anticipated. The appointment scheduled in 2 weeks will not be canceled. As progresses Suki Leon (1995) continues to have hiccups in her care. Fortunately the concern about coarctation of the aorta appears to be unlikely and will not change her care. I have discussed with Suki Leon (1995) the possibility that a with possible aortic coarctation may not be kept at [facility] after delivery. Dr. Dia Mantilla will have to evaluate whether or not twin a can be delivered at [facility]. It was unlikely that new information between now and delivery will completely exclude the possibility of coarctation of the aorta. It is necessary that a / echocardiogram be performed to achieve the exclusion of coarctation of the aorta or the diagnosis of coarctation of the aorta. As indicated earlier laboratory testing to evaluate changes that may be associated with preeclampsia are being sent today. As scheduled a follow-up visit 1 week from now in 2 weeks from now are on the books. Global care continues with Dr. Dia Mantilla. Routine complications of , hospitalization, labor, delivery, and care our anticipated with Dr. Dia Mantilla. Follow-up co-management visits as indicated above are scheduled. Suki Leon (1995) is highly complicated with multiple related complications. Her visit required evaluation, assessment, and coordination of multiple and non related issues as summarized by the visit documentation. My total encounter time on 07/27/2024 was 55 minutes which was spent in the activities documented in the note. This includes time spent prior to the visit and after the visit in direct care of the patient. This time does not include time spent in any separately reportable services. Voice recognition software [employer] was used to dictate and transcribe this document. Consumer Electronic Retail Specialist variances may occur. Despite proof reading, typographical errors may occur. Progress Notes - Office Visi t - 07/13/2024 - GA:24w2d 07/13/2024 - 24w2d - Nancy Be NP Images from the original note were not included. Subjective/Objective Patient ID: Suki Leon is a 29 y.o. female. Chief Complaint Chief Complaint Patient presents with Follow-up HPI Suki returns to the [facility] office at 24 weeks and 2 days gestation. She is a patient of Dr. Mantilla and is being seen for mono-di twins. She has a history of IBS which is managed by her PCP. She reports headaches have gotten better and anxiety is stable. She has not felt any contractions, lof or vb. She is feeling movement. Current Outpatient Medications: aspirin 81 mg chewable tablet cholecalciferol (VITAMIN D-3) 2000 unit tablet metoclopramide (REGLAN) 10 mg tablet no115/iron/folic acid ( 19 ORAL) ibuprofen (ADVIL,MOTRIN) 400 mg tablet progesterone (PROMETRIUM) 200 mg capsule Review of Systems All other systems reviewed and are negative. BP 124/84 Wt 280 lb (127 kg) LMP 01/19/2024 (Approximate) BMI 46.59 kg/m?? Consultative Impressions and Recommendations: [age] y.o. @ 24w2d , 10/31/24 - primary OB is Dr. Mantilla [facility] -Received [facility] Results: Foresight, Carrier Screen: Negative Prequel, Screen: Negative Predicted Twin Sex: Male/Male 2. Mo Di Twins - boys! -Previously counseled by Dr. Tellez 2. Maternal obesity. HgbA1c 4.6% Early 1 hour 82, if normal repeat 24-28 weeks 3. History of recurrent urinary tract infections. 4. Anxiety Not currently medicated, Previously on Lexapro 20 mg 5. Migraines Daily magnesium OTC 6. IBS Notriptyline dc'd around 18 weeks 7. Cervical shortening Progesterone 200mg PV HS Ibuprofen 400mg every 6 hours odd calendar days Recommendations: MFM comanagement is recommended and we will schedule provider visits about monthly in conjunction with her US visits. GCT repeat 24-28 weeks ASA 81 mg daily Close monitoring for s/s of preeclampsia Mediterranean diet with at least 3 servings of low mercury fish per week Anemia screening q trimester Initiate progesterone 200mg PV HS Initiate Ibuprofen 400mg every 6 hours on odd calendar days Maternal and surveillance: Will be arranged as part of our Shay twin protocol which includes TTTS/TAPS surveillance. TTTS screening with first basic anatomic survey and TVUS CL screening starting at 16 weeks q 2 week TTTS screening until delivery per protocol Screening echocardiogram at 24 weeks, incomplete- plan to reevaluate twin A (AA) at next appt. Serial growth US every 2 weeks with TTTS/TAPS surveillance. Twice weekly testing starting at 32 week per our Shay twin protocol Timing of delivery: Delivery is recommended 34-37 weeks for uncomplicated monochorionic diamniotic twins. Route of delivery: Mo-Di twins is not a contraindication to DEAN. Optimal route of delivery delivery will be dependent on size position provider and patient preference closer to time of delivery. My total encounter time on 07/13/2024 was 24 minutes which was spent in the activities documented in the note. This includes time spent prior to the visit and after the visit in direct care of the patient. This time does not include time spent in any separately reportable services. Nancy Be NP Cosigned by Byron Tellez MD at 07/14/2024 6:43 PM CDT Progress Notes - Routine Pre - 07/12/2024 - GA:24w1d 07/12/2024 - 24w1d - Dia Mantilla MD 24w1d Labs reviewed. - to vit d. To T&S and GCT (per [facility])- I dont see the vit D. She will go to have for tomorrow. To basa- she is taking. cfDNA testing- negative. RTO 4 weeks for gct and rhogam. MFM appointments. - tomorrow. She got the flu shot today. Progress Notes - Office Visi t - 06/29/2024 - GA:22w2d 06/29/2024 - w2d - Nancy Be NP Subjective/Objective Patient ID: Suki Leon is a 29 y.o. female. Chief Complaint Chief Complaint Patient presents with Follow-up HPI Suki returns to the [facility] office at 22 weeks and 2 days gestation. She is a patient of Dr. Mantilla and is being seen for mono-di twins. She has a history of IBS which was controlled on nortriptyline. She has weaned off of that with the help of her PCP. She reports headaches have gotten better and anxiety is stable. Current Outpatient Medications: aspirin 81 mg chewable tablet metoclopramide (REGLAN) 10 mg tablet no115/iron/folic acid ( 19 ORAL) Review of Systems All other systems reviewed and are negative. BP 124/68 Wt 279 lb (126.6 kg) LMP 01/19/2024 (Approximate) BMI 46.43 kg/m?? Mo-di twin gestation in Vertex/TV presentation. EFW 641 g (98%), EFW B 455g (23%). Normal Afis and FHRs. UA PI and MCAs WNL. CL 36.7 mm. Consultative Impressions and Recommendations: [age] y.o. @ 22w2d , 10/31/24 - primary OB is Dr. Mantilla [facility] -Received Myriad Results: Foresight, Carrier Screen: Negative Prequel, Screen: Negative Predicted Twin Sex: Male/Male 2. Mo Di Twins - boys! -Previously counseled by Dr. Tellez 2. Maternal obesity. HgbA1c 4.6% Early 1 hour 82, if normal repeat 24-28 weeks 3. History of recurrent urinary tract infections. 4. Anxiety Not currently medicated, however Notriptyline may help her symptoms Previously on Lexapro 20 mg 5. Migraines Tylenol 1000mg + Motrin 400mg + Benadryl 50mg + Reglan 10mg, taken together, can repeat in 6 hours Daily magnesium OTC 6. IBS Notriptyline dc'd around 18 weeks Recommendations: MFM comanagement is recommended and we will schedule provider visits about monthly in conjunction with her US visits. GCT repeat 24-28 weeks ASA 81 mg daily Close monitoring for s/s of preeclampsia Mediterranean diet with at least 3 servings of low mercury fish per week Anemia screening q trimester Maternal and surveillance: Will be arranged as part of our Shay twin protocol which includes TTTS/TAPS surveillance. TTTS screening with first basic anatomic survey and TVUS CL screening starting at 16 weeks q 2 week TTTS screening until delivery per protocol Screening echocardiogram at 24 weeks Serial growth US every 2 weeks with TTTS/TAPS surveillance. Twice weekly testing starting at 32 week per our Shay twin protocol Timing of delivery: Delivery is recommended 34-37 weeks for uncomplicated monochorionic diamniotic twins. Route of delivery: Mo-Di twins is not a contraindication to DEAN. Optimal route of delivery delivery will be dependent on size position provider and patient preference closer to time of delivery. My total encounter time on 06/29/2024 was 21 minutes which was spent in the activities documented in the note. This includes time spent prior to the visit and after the visit in direct care of the patient. This time does not include time spent in any separately reportable services. Nancy Be NP Cosigned by Byron Tellez MD at 06/29/2024 3:34 PM CDT Progress Notes - Office Visi t - 06/15/2024 - GA:20w2d 06/15/2024 - - Nancy Be NP Subjective/Objective Patient ID: Suki Leon is a 29 y.o. female. Chief Complaint Chief Complaint Patient presents with Follow-up HPI Suki returns to the [facility] office at 20 weeks and 2 days gestation. She is a patient of Dr. Mantilla and is being seen for mono-di twins. She has a history of IBS which was controlled on nortriptyline. She has weaned off of that with the help of her PCP. She reports headaches have gotten better and anxiety is stable. Current Outpatient Medications: aspirin 81 mg chewable tablet no115/iron/folic acid ( 19 ORAL) escitalopram (LEXAPRO) 20 mg tablet metoclopramide (REGLAN) 10 mg tablet nortriptyline (PAMELOR) 10 mg capsule Review of Systems All other systems reviewed and are negative. Ht 165.1 cm (5' 5 ) Wt 277 lb 12.8 oz (126 kg) LMP 01/19/2024 (Approximate) BMI 46.23 kg/m?? Mo-di twin gestation in Vertex/TV presentation. EFW 428 g (95%), EFW B 338g (39%). Normal Afis and FHRs. UA PI and MCAs WNL. CL 39.1mm. Consultative Impressions and Recommendations: [age] y.o. @ w2d , 10/31/24 - primary OB is Dr. Mantilla, [facility] -Received Myriad Results: Foresight, Carrier Screen: Negative Prequel, Screen: Negative Predicted Twin Sex: Male/Male 2. Mo Di Twins - boys! -Previously counseled by Dr. Tellez 2. Maternal obesity. HgbA1c 4.6% Early 1 hour GCT, this should be completed with her primary OB at her next visit, has slip, if normal repeat 24-28 weeks 3. History of recurrent urinary tract infections. 4. Anxiety Not currently medicated, however Notriptyline may help her symptoms Previously on Lexapro 20 mg 5. Migraines Tylenol 1000mg + Motrin 400mg + Benadryl 50mg + Reglan 10mg, taken together, can repeat in 6 hours Daily magnesium OTC 6. IBS Notriptyline dc'd around 18 weeks Recommendations: MFM comanagement is recommended and we will schedule provider visits about monthly in conjunction with her US visits. GCT at 16 weeks, planning to go this Thursday (20 weeks) if normal, repeat 24-28 weeks ASA 81 mg daily Close monitoring for s/s of preeclampsia Mediterranean diet with at least 3 servings of low mercury fish per week Anemia screening q trimester Maternal and surveillance: Will be arranged as part of our Shay twin protocol which includes TTTS/TAPS surveillance. TTTS screening with first basic anatomic survey and TVUS CL screening starting at 16 weeks q 2 week TTTS screening until delivery per protocol Detailed anatomic screening at 20 weeks with TVUS CL screening. Screening echocardiogram at 24 weeks Serial growth US every 2 weeks with TTTS/TAPS surveillance. Twice weekly testing starting at 32 week per our Shay twin protocol Timing of delivery: Delivery is recommended 34-37 weeks for uncomplicated monochorionic diamniotic twins. Route of delivery: Mo-Di twins is not a contraindication to DEAN. Optimal route of delivery delivery will be dependent on size position provider and patient preference closer to time of delivery. My total encounter time on 06/15/2024 was 21 minutes which was spent in the activities documented in the note. This includes time spent prior to the visit and after the visit in direct care of the patient. This time does not include time spent in any separately reportable services. Nancy Be NP Progress Notes - Routine Pre jose eduardo - 06/13/2024 - GA:20w0d 06/13/2024 - 20w0d - Dia Mantilla MD 20w0d Labs reviewed. - to vit d. To T&S and GCT (per mfm) Shipley are better To basa- she is taking. cfDNA testing- negative. RTO 4 weeks M appointments. - next is Thursday for anatomy scan. Progress Notes - Office Visi t - 05/31/2024 - GA:18w1d 05/31/2024 - 18w1d - Nancy Be NP Images from the original note were not included. Subjective/Objective Patient ID: Suki Leon is a 29 y.o. female. Chief Complaint Chief Complaint Patient presents with Follow-up HPI Suki returns to the [facility] office at 16 weeks and 2 days gestation. She is a patient of Dr. Mantilla and is being seen for mono-di twins. She has a history of IBS which is controlled on nortriptyline by her PCP. In addition to IBS, she has anxiety and migraines. Both of which can be controlled with the Nitriptyline as well. However, she gets migraines often. She works closely with her PCP regarding those concerns. Current Outpatient Medications: aspirin 81 mg chewable tablet nortriptyline (PAMELOR) 10 mg capsule no115/iron/folic acid ( 19 ORAL) escitalopram (LEXAPRO) 20 mg tablet metoclopramide (REGLAN) 10 mg tablet Review of Systems All other systems reviewed and are negative. BP 130/86 (BP Location: Right arm, Patient Position: Sitting) Ht 167.6 cm (5' 5.98 ) Wt 276 lb (125.2 kg) LMP 01/19/2024 (Approximate) BMI 44.57 kg/m?? Ultrasound: Consultative Impressions and Recommendations: [age] y.o. @ 16w2d , 10/31/24 - primary OB is Dr. Mantilla, [facility] -Received Myriad Results: Foresight, Carrier Screen: Negative Prequel, Screen: Negative Predicted Twin Sex: Male/Male 2. Mo Di Twins - boys! -Previously counseled by Dr. Tellez -Intertwin growth discordance now 16.3% 2. Maternal obesity. HgbA1c 4.6% Early 1 hour GCT, this should be completed with her primary OB at her next visit, if normal repeat 24-28 weeks 3. History of recurrent urinary tract infections. 4. Anxiety Not currently medicated, however Notriptyline may help her symptoms Previously on Lexapro 20 mg 5. Migraines Tylenol 1000mg + Motrin 400mg + Benadryl 50mg + Reglan 10mg, taken together, can repeat in 6 hours Daily magnesium OTC 6. IBS Notriptyline per her PCP Recommendations: MFM comanagement is recommended and we will schedule provider visits about monthly in conjunction with her US visits. GCT at 16 weeks, if normal, repeat 24-28 weeks ASA 81 mg daily Close monitoring for s/s of preeclampsia Mediterranean diet with at least 3 servings of low mercury fish per week Anemia screening q trimester Maternal and surveillance: Will be arranged as part of our Shay twin protocol which includes TTTS/TAPS surveillance. TTTS screening with first basic anatomic survey and TVUS CL screening starting at 16 weeks q 2 week TTTS screening until delivery per protocol Detailed anatomic screening at 20 weeks with TVUS CL screening. Screening echocardiogram at 24 weeks Serial growth US every 2 weeks with TTTS/TAPS surveillance. Twice weekly testing starting at 32 week per our Shay twin protocol Timing of delivery: Delivery is recommended 34-37 weeks for uncomplicated monochorionic diamniotic twins. Route of delivery: Mo-Di twins is not a contraindication to DEAN. Optimal route of delivery delivery will be dependent on size position provider and patient preference closer to time of delivery. My total encounter time on 05/31/2024 was 23 minutes which was spent in the activities documented in the note. This includes time spent prior to the visit and after the visit in direct care of the patient. This time does not include time spent in any separately reportable services. Nancy Be NP Progress Notes - Routine Pre - 05/20/2024 - GA:16w4d 05/20/2024 - 16w4d - Heaven Hooks NP Images from the original note were not included. 16w4d Morning sickness- only occasionally. Depression scale reviewed- 10/10. She thinks she is doing well off of the Lexapro. Labs reviewed. To complete today. To basa cfDNA testing- negative. Diet and exercise discussed- to spinning babies Covid vaccination recommended. To Freddie this afternoon for heart tones. RTO 4 weeks with . Keep M appointments. Favio TAVAREZ Cosigned by Dia Mantilla MD at 05/25/2024 6:29 PM CDT Progress Notes - Office Visi t - 05/18/2024 - GA:16w2d 05/18/2024 - 16w2d - Ely Tellez MD Suki Leon (1995) is a new patient to the Maternal Medicine practice at [facility]. Suki Leon (1995) is a 29-year-old gravid 1 para 0 female who conceived spontaneously. Last normal menstrual period is uncertain. Ultrasound testing performed on March 22, 2024 revealed a twin with size consistent with 8 weeks and 1 day and an assigned estimated date of confinement of October 31, 2024. Suki Leon (1995) is currently at 16 weeks and 2 days based on 1st trimester ultrasound performed on March 22, 2024. Subsequent ultrasound testing at outside institution has demonstrated a monochorionic diamniotic twin . Suki Leon (1995) is referred to the Maternal Medicine practice here at [facility] for consultation and presumed co management of monochorionic diamniotic twin . Suki Leon (1995) primary personalized living manager is Dr. Dia Mantilla. Currently Suki Leon (1995) is planning delivery at [facility] under the care of Dr. Dia Mantilla. As indicated above Suki Leon (1995) conceived spontaneously with out clear-cut recollection of her last normal menstrual period. She was uncertain what day conception occurred. Her gestational age assignment is based on her 1st ultrasound. Today's ultrasound at 16 weeks and 2 days can not help ascertain gestational age and we will continue to utilize October 31, 2024 as her estimated date of confinement. Early has not been complicated by excessive nausea vomiting, significant vaginal bleeding, or other early complications. Today Suki Leon (1995) does not yet feel activity or movement. She reports no symptoms of labor contractions. This is Suki Leon (1995) 1st . She has no other obstetrical history to relate. Suki Leon (1995) reports no prior history of gynecologic disorders. She reports no history of uterine tumors, ovarian tumors, pelvic infections, gonorrhea, syphilis, chlamydia, or herpes simplex. Suki Leon (1995) past medical history is notable for: 1. Recurrent urinary tract infections including kidney infections. These were frequent between 2011 and 2014. She does report history of kidney stones. She was not had recent report of urinary tract infections, kidney stones, or pyelonephritis. 2. Suki Leon (1995) reports a history of irritable bowel syndrome for which she is currently being treated using nortriptyline 10 mg daily. This is also thought to be helpful for her history of migraine headaches. Today we did discuss the impact of nortriptyline on fetuses and possible complications from intrauterine exposure to nortriptyline. Suki Leon (1995) indicates that she was told by her primary care physician who has prescribed her nortriptyline that she needs to continue to take it during . I have indicated to Suki Leon (1995) that I would not prescribe nortriptyline during her . If nortriptyline therapy is deemed necessary by her other health care providers they will have to prescribe it and document the indications for using it. If Suki Leon (1995) is going to discontinue nortriptyline it should be tapered rather than discontinued abruptly. 3. History of migraine headaches. 4. History of anxiety . Currently Suki Leon (1995) is not on a specific therapy for her anxiety although her nortriptyline, prescribed for irritable bowel syndrome, may have some impact on her anxiety disorder. Suki Leon (1995) reports no personal history of chronic hypertension, asthma, pneumonia, diabetes mellitus, rheumatic fever, mitral valve prolapse, deep vein thrombosis, gallbladder disease, hepatitis, arthritis, seizures, or neurologic disorders. Suki Leon (1995) does not report history of prior surgical procedures. Suki Leon (1995) reports no allergies to medications. To the best of her knowledge she tolerates penicillins without reaction. She reports no latex sensitivity. She reports no peanut allergy. Suki Leon (1995) does not smoke, use recreational drugs, or drink alcohol in excess. 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 She was . Her , Florentino Leon, is not here with her today. Her father is here with her today. Suki Leon (1995) reports no family history of defects, mental retardation, inherited disorders. Suki Leon (1995) has already undergone noninvasive testing. Results returned with low risk test results and twin . Both babies based on noninvasive testing are felt to be male fetuses. Suki Leon (1995) review of systems is positive for fatigue, breast tenderness, increased urinary frequency, mild shortness of breath. Suki Leon (1995) review of systems is negative for severe headache, scintillations, tinnitus, dizziness, chest pain, palpitations, hemoptysis, hematuria, dysuria, rash, fever. Suki Leon (1995) physical examination today is limited. Suki Leon (1995) is a moderately overweight female in no acute distress. Height is 5 ft and 6 in. Pre weight reportedly 264 lb. Her current weight is 272 lb. Her blood pressure today 124/94. Pulse is 82. Respiratory rate is 18. Head neck exam is normal. Cranium is normocephalic. Cranial nerves 2-12 are intact. Neck is supple. Thyroid is not detected to be enlarged. No cervical lymphadenopathy is identified. Respiratory effort is normal. Heart has a regular rate and rhythm. Breasts are not examined. Abdomen is obese. Liver is not palpable. Spleen is not palpable. Uterus is palpable and measures 25 cm on fundal height. heart rates are detected in 2 separate areas by Doppler auscultation indicating 2 separate fetuses. Uterus is nontender to palpation. Extremities have no detected edema. No clear-cut signs of deep vein thrombosis. Pelvic exam is deferred. Suki Leon (1995) indicates that her blood type is O Rh negative. I can not find any laboratory testing to confirm that. If confirmed she is a RhoGAM candidate. As indicated above noninvasive testing performed earlier in is low risk. Two male fetuses are felt to be present. Suki Richardson has undergone screening for common inherited disorders and is not found to be carrier for disorders that were screened including, but not limited to cystic fibrosis, spinal muscular atrophy, Duchenne muscular dystrophy, fragile X, and Russell Pick disease. Ultrasound testing performed today prior to the office visit reveals a monochorionic diamniotic twin . There is a Barrientos anterior placenta with thin intervening membrane. No lambda sign or twin peak sign is evident in the amnion insertion on the placenta. This is most consistent with monochorionic diamniotic twin . Twin a is in breech presentation. Twin a has an anterior placenta. The amniotic fluid deepest vertical pocket in the gestational sac of twin a measures 3.0 cm. Growth of twin a is evaluated. The estimated weight of twin a is 202 g. This is above the 99th percentile for gestational age assignment. Twin B is in breech presentation. Twin B has an anterior placenta. The deepest vertical pocket of amniotic fluid in the gestational sac of twin B measures 2.9 cm. There is a marginal umbilical cord insertion of the umbilical cord of twin B on the placenta. The marginal insertion is in the fundal region of the uterus/placental mass. growth of twin B is evaluated. The estimated weight of twin B is 132 g. This is the 13th percentile for assigned gestational age. The inter twin growth discordance is 34.6%. The cervix is evaluated by transvaginal ultrasonography. Cervical length is 34.6 mm. There is no endocervical funneling. Assessment and problem list: 1. Monochorionic diamniotic twin at 16 weeks and 2 days with estimated date of confinement of October 31, 2024. Today's ultrasound is notable for significant inter twin growth discordance with twin A growing above the 99th percentile and twin B at the 13th percentile. The inter twin growth discordance is 34.6%. Although there is a significant difference in size there is no clear-cut evidence that this is the result of twin-twin transfusion. This could be the result of unequal sharing of the placenta mass resulting in twin A having a larger portion of placental tissue to support growth and twin B having a smaller portion of placenta to support growth. It may also be early onset twin-twin transfusion without other indications of twin- twin transfusion such as fluid collections or ascites in twin A. As continues regular assessment of growth and anatomy is essential to identify the possibility of twin-twin transfusion as this may have a therapeutic intervention that may improve outcome. Currently there is no strategy to improve outcome when there is significant discordance of placental sharing. Today's ultrasound does not identify any structural malformations in twin A or twin B. unfortunately the imaging was incomplete to conclude absolute absence of structural malformations. Detailed heart anatomy should be undertaken targeting a gestational age of 24 weeks. A return evaluation in 4 weeks to reassess anatomy is planned. Due to the potential for twin-twin transfusion reassessment in 2 weeks to monitor changes that may help identify twin-twin transfusion is planned. Testing by ultrasound to monitor the presence or absence of evidence of twin-twin transfusion is anticipated every 1-2 weeks at least through 32 weeks gestation. Therapeutic interventions such as laser photocoagulation of anastomotic blood vessels may be available up to 26 weeks gestation if evidence of severe twin-twin transfusion becomes apparent. 2. Maternal obesity. 3. History of recurrent urinary tract infections. This appears to be a resolved/quiescent historical problem. Today's urine dipstick did not indicate presence of a UTI. certainly can be associated with an increased risk of urinary tract infections and regular assessment of urine dipsticks at office visits should be undertaken to monitor evidence of urinary tract infection. Symptoms of urinary tract infection should be evaluated. 4. Twin growth discordance. Twin A today has an estimated weight of 202 g. This is above the 99th percentile for gestational age. Twin B has an estimated weight of 134 g. This is the 13th percentile. The inter twin growth discordance is 34.6%. As indicated above this may be the result of twin-twin transfusion. It may also be the result of unequal placental sharing. No abnormalities of anatomy were identified in today's imaging. Ongoing serial assessments by ultrasound including assessments of growth, umbilical artery Doppler blood flow, middle cerebral artery Doppler blood flow will be necessary to identify changes that may reflect abnormalities of the physiology of twin A and twin B. This could include progressive growth restriction for twin B and it may we represent twin- twin transfusion that may require laser photocoagulation. In today's evaluation and discussion regarding Suki Leon (1995) current we had long discussions regarding complications associated with monochorionic diamniotic twins such as twin-twin transfusion, unequal placental sharing, and structural malformations. We also discussed common complications associated with twin pregnancies in general including a significant increased risk for labor and delivery. We discussed the possibility of cervical weakness/insufficiency in multi gestations. We discussed the increased risk of preeclampsia and hypertensive disease of . We discussed nutritional insufficiency that may occur in twin pregnancies due to the large volume of the uterus. Today I did suggest that Suki Leon (1995) obtain a copy of Dr. Carin Rajan book - What To Expect When Expecting Twins, Triplets, Quads, or More . This is very helpful lay book regarding multi gestation that provide significant amount of information regarding complications of multi gestation. More importantly it provide significant advice for nutritional support optimize outcome based on dietary support. This is most easily obtained off and [employer]. A follow-up outpatient office visit is scheduled with ultrasound in 2 weeks. As indicated above due to the surveillance necessary for identifying twin-twin transfusion ultrasound evaluation every 1-2 weeks will be planned at least through 32 weeks gestation. Global care continues with Dr. Dia Mantilla. Routine complications of , routine visits, hospitalization, labor, delivery, and care our anticipated with Dr. Dia Mantilla. Suki Leon (1995) is highly complicated with multiple related complications. Her visit required evaluation, assessment, and coordination of multiple and non related issues as summarized by the visit documentation. My total encounter time on 05/18/2024 was 93 minutes which was spent in the activities documented in the note. This includes time spent prior to the visit and after the visit in direct care of the patient. This time does not include time spent in any separately reportable services. Voice recognition software [employer]ago Fluency Direct was used to dictate and transcribe this document. Consumer Electronic Retail Specialist variances may occur. Despite proof reading, typographical errors may occur. Progress Notes - Orders Only - 04/25/2024 - GA:13w0d 04/25/2024 - 13w0d - Nasim Navas MA [phone] [facility] detailed message regarding referral. Progress Notes - Initial Pre - 04/15/2024 - GA:11w4d 04/15/2024 - 11w4d - Dia Mantilla MD Images from the original note were not included. Initial OB Visit Initial Visit Subjective: Suki Leon is a 29 y.o., at 11w4d , based on 1st trimester U/S who presents for initial visit. Morning sickness is random. Has not lost weight. Able to eat some every day. Menstrual History: Menarche Age: 14 years Patient's last menstrual period was 01/19/2024 (approximate). Period Cycle (Days): 28 Sexual History: OB History 1 Para Term AB Living SAB IAB Ectopic Multiple Live Births # Outcome Date GA Labor/2nd Weight Sex Type Anes PTL Lv A1 A5 1 Current Objective: BP 124/86 (BP Location: Left arm, Patient Position: Sitting) Ht 167.6 cm (5' 6 ) Wt 273 lb (123.8 kg) LMP 01/19/2024 (Approximate) BMI 44.06 kg/m?? Physical OB Exam: Last filed by Dia Mantilla MD on 04/15/2024 5:52 PM General Physical Exam HEENT: normal Heart: normal Skin: normal Thyroid: normal Lungs: normal Extremities: normal Lymph Nodes: normal Breasts: normal Neurological: normal grossly Abdomen: normal Pelvic Exam Vulva: normal Vagina: normal Cervix: normal Uterus: 10-12 weeks Adnexa: normal Rectum: normal Spines: average Subpubic Arch: normal See flow sheet for gestation -specific examination and vitals. Assessment: Patient is a 29 y.o., at 11w4d, size = dates. Diagnoses and all orders for this visit: Encounter for supervision of normal first in first trimester (Primary) - Urine culture Urine, clean voided; Future - Vitamin D 25 hydroxy; Future - Varicella Zoster IgG antibody Blood; Future - Type and screen; Future - Rubella IgG antibody Blood; Future - RPR Blood; Future - HIV 1/2 Antibody plus p24 Antigen Blood; Future - Hepatitis C antibody Blood; Future - Hepatitis B Surface Antigen Blood; Future - Drugs of Abuse Screen, Urine without Confirmation; Future - CBC with auto differential; Future - Hemoglobin A1c; Future 11 weeks gestation of - Urine culture Urine, clean voided; Future - Vitamin D 25 hydroxy; Future - Varicella Zoster IgG antibody Blood; Future - Type and screen; Future - Rubella IgG antibody Blood; Future - RPR Blood; Future - HIV 1/2 Antibody plus p24 Antigen Blood; Future - Hepatitis C antibody Blood; Future - Hepatitis B Surface Antigen Blood; Future - Drugs of Abuse Screen, Urine without Confirmation; Future - CBC with auto differential; Future - Hemoglobin A1c; Future Long-term current use of antidepressant Irritable bowel syndrome with diarrhea Assessment & Plan: She is controlled on the nortriptyline Her pcp gives it to her We discussed that it has not been linked to defects, but withdrawal is a possibility We dicussed taking the smallest dose possible or getting off We discussed the is usually constipating and her bowels maybe more normal with She will talk to her pcp Other specified anxiety disorders Assessment & Plan: We discussed that this antidepressant is not [...] have been used, just as a precaution. Twin , unable to determine number of placenta and number of amniotic sacs, antepartum, unspecified trimester Assessment & Plan: To ultrasound at her next appointment to see if the chronicity can not be determined. Will plan to do ultrasound prior to each visit for heart tone We discussed that if she is not that I will be recommending M consult When the patient's found out that that would be in [place] he used an expletive to express that they would not be doing that Orders: - US Ob FU Twins; Future Other orders - aspirin 81 mg chewable tablet; Take 1 tablet (81 mg total) by mouth daily Problem list reviewed and updated: Problems (from 03/28/24 to present) No problems associated with this episode. Plan: -dating US completed previously -PNL ordered. We will discuss at her next visit. -early glucose ordered due to BMI -To start BASA (I had to leave for delivery and we actually did not discuss this at her appointment. I have called her back and reviewed with her 04/15/24 @ 5:56 PM -We dicussed cell free DNA testing and carrier screening. False positives and negatives were discussed. She would like to do both -pap and std testing done today. The results will go to the portal. If she doesn't see them in a week, to call the office. -NOB packet reviewed with the pt and her questions were answered. Diet and exercise discussed. To vitamins once morning sickness is better. Follow up in 4 weeks. Dia Mantilla MD 04/15/2024 Last Filed Vital Signs Vital Sign Reading Time Taken Comments Blood Pressure 138/84 09/22/2024 8:36 AM GAS APPLIANCE REPAIRER Pulse 90 09/22/2024 8:36 AM GAS APPLIANCE REPAIRER Temperature 36.6 ??C (97.9 ??F) 09/22/2024 8:36 AM CS T Respiratory Rate 17 09/22/2024 8:36 AM GAS APPLIANCE REPAIRER Oxygen Saturation 99% 09/22/2024 8:36 AM GAS APPLIANCE REPAIRER Inhaled Oxygen Concentration - - Weight 128.8 kg (284 lb) 08/04/2024 8:32 PM CDT Height 165.1 cm (5' 5 ) 08/04/2024 8:32 PM CDT Body Mass Index 47.26 08/04/2024 8:32 PM CDT Plan of Treatment Health Maintenance Due Date Last Done Comments Cervical Cancer Screening 1995 Regular Well Visit/Exam 18-64 2015 Covid-19 Vaccine ( season) 2024 01/04/2021, 12/07/2020 Depression Screening 07/28/2025 07/28/2024, 07/12/2024, 05/18/2024 DTaP/Tdap/Td Vaccine (9 - Td or Tdap) 08/09/2034 08/09/2024, 09/20/2022, 07/03/2008, Additional history exists HPV Vaccines Completed 05/11/2013, 10/05, 04/25/2011 Hepatitis C Screening Completed 05/20/2024 Influenza Vaccine Completed 07/12/2024, , 06/15/2020, Additional history exists Varicella Vaccines Completed 09/21/2024, 1 10/28/2007, 04/27/2008 Pneumococcal vaccine <65 Aged Out No longer eligible based on patient's age to complete this topic Procedures Procedure Name Priority Date/Time Associated Diagnosis Comments BLEED SCREEN Timed 09/20/2024 4: 48 AM GAS APPLIANCE REPAIRER ABO/RH Timed 09/20/2024 4:48 AM GAS APPLIANCE REPAIRER CBC WITHOUT DIFFERENTIAL Routine 09/20/2024 4:48 AM GAS APPLIANCE REPAIRER RH IMMUNE GLOBULIN EVAL Timed 09/20/2024 4:48 AM GAS APPLIANCE REPAIRER SURGICAL PATHOLOGY Routine 09/19/2024 4: 06 PM GAS APPLIANCE REPAIRER ANESTHESIA EPIDURAL BLOCK Routine 09/19/2024 2:45 PM GAS APPLIANCE REPAIRER SECTION 09/19/2024 1:56 PM GAS APPLIANCE REPAIRER TIUP Case Notes PreE w/ SF and Multiple gestation EGFR Timed 09/18/2024 6:21 AM GAS APPLIANCE REPAIRER COMPREHENSIVE METABOLIC PANEL Timed 09/18/2024 6:21 AM GAS APPLIANCE REPAIRER CBC WITHOUT DIFFERENTIAL Timed 09/18/2024 6:21 AM GAS APPLIANCE REPAIRER TYPE AND SCREEN Timed 09/18/2024 6:21 AM GAS APPLIANCE REPAIRER NONSTRESS TEST Routine 09/17/2024 2:58 PM GAS APPLIANCE REPAIRER Preeclampsia, unspecified trimester 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 US OB FOLLOW UP IP Routine 09/15/2024 1:08 PM GAS APPLIANCE REPAIRER EGFR Timed 09/15/2024 6:17 AM GAS APPLIANCE REPAIRER COMPREHENSIVE METABOLIC PANEL Timed 09/15/2024 6:17 AM GAS APPLIANCE REPAIRER CBC WITHOUT DIFFERENTIAL Timed 09/15/2024 6:17 AM GAS APPLIANCE REPAIRER TYPE AND SCREEN Timed 09/15/2024 6:17 AM GAS APPLIANCE REPAIRER NONSTRESS TEST Routine 09/13/2024 5:10 PM GAS APPLIANCE REPAIRER Preeclampsia, unspecified trimester 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 EGFR Timed 09/12/2024 6:35 AM GAS APPLIANCE REPAIRER COMPREHENSIVE METABOLIC PANEL Timed 09/12/2024 6:35 AM GAS APPLIANCE REPAIRER CBC WITHOUT DIFFERENTIAL Timed 09/12/2024 6:35 AM GAS APPLIANCE REPAIRER TYPE AND SCREEN Timed 09/12/2024 6:35 AM GAS APPLIANCE REPAIRER EGFR Timed 09/09/2024 6:24 AM GAS APPLIANCE REPAIRER COMPREHENSIVE METABOLIC PANEL Timed 09/09/2024 6:24 AM GAS APPLIANCE REPAIRER CBC WITHOUT DIFFERENTIAL Timed 09/09/2024 6:24 AM GAS APPLIANCE REPAIRER TYPE AND SCREEN Timed 09/09/2024 6:24 AM GAS APPLIANCE REPAIRER US OB LIMITED IP Routine 09/08/2024 10:29 AM GAS APPLIANCE REPAIRER NONSTRESS TEST Routine 09/06/2024 8:38 PM GAS APPLIANCE REPAIRER Preeclampsia, unspecified trimester 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 EGFR Timed 09/06/2024 4:31 AM GAS APPLIANCE REPAIRER COMPREHENSIVE METABOLIC PANEL Timed 09/06/2024 4:31 AM GAS APPLIANCE REPAIRER CBC WITHOUT DIFFERENTIAL Timed 09/06/2024 4:31 AM GAS APPLIANCE REPAIRER TYPE AND SCREEN Timed 09/06/2024 4:31 AM GAS APPLIANCE REPAIRER GROUP B STREPTOCOCCUS CULTURE Routine 09/03/2024 10:29 AM GAS APPLIANCE REPAIRER EGFR Timed 09/03/2024 5:26 AM GAS APPLIANCE REPAIRER COMPREHENSIVE METABOLIC PANEL Timed 09/03/2024 5:26 AM GAS APPLIANCE REPAIRER CBC WITHOUT DIFFERENTIAL Timed 09/03/2024 5:26 AM GAS APPLIANCE REPAIRER TYPE AND SCREEN Timed 09/03/2024 5:26 AM GAS APPLIANCE REPAIRER ECG 12-LEAD Routine 09/02/2024 4:33 PM GAS APPLIANCE REPAIRER EGFR Timed 08/31/2024 6:20 AM GAS APPLIANCE REPAIRER COMPREHENSIVE METABOLIC PANEL Timed 08/31/2024 6:20 AM GAS APPLIANCE REPAIRER CBC WITHOUT DIFFERENTIAL Timed 08/31/2024 6:20 AM GAS APPLIANCE REPAIRER TYPE AND SCREEN Timed 08/31/2024 6:20 AM GAS APPLIANCE REPAIRER NONSTRESS TEST Routine 08/29/2024 2:32 PM GAS APPLIANCE REPAIRER Preeclampsia, unspecified trimester 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 NONSTRESS TEST Routine 08/28/2024 7:47 PM GAS APPLIANCE REPAIRER Preeclampsia, unspecified trimester 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 EGFR Timed 08/28/2024 6:00 AM GAS APPLIANCE REPAIRER COMPREHENSIVE METABOLIC PANEL Timed 08/28/2024 6:00 AM GAS APPLIANCE REPAIRER CBC WITHOUT DIFFERENTIAL Timed 08/28/2024 6:00 AM GAS APPLIANCE REPAIRER TYPE AND SCREEN Timed 08/28/2024 6:00 AM GAS APPLIANCE REPAIRER EGFR Timed 08/25/2024 6:19 AM GAS APPLIANCE REPAIRER COMPREHENSIVE METABOLIC PANEL Timed 08/25/2024 6:19 AM GAS APPLIANCE REPAIRER CBC WITHOUT DIFFERENTIAL Timed 08/25/2024 6:19 AM GAS APPLIANCE REPAIRER TYPE AND SCREEN Timed 08/25/2024 6:19 AM GAS APPLIANCE REPAIRER US OB FOLLOW UP IP Routine 08/24/2024 9:37 AM GAS APPLIANCE REPAIRER EGFR Timed 08/22/2024 6:02 AM GAS APPLIANCE REPAIRER COMPREHENSIVE METABOLIC PANEL Timed 08/22/2024 6:02 AM GAS APPLIANCE REPAIRER CBC WITHOUT DIFFERENTIAL Timed 08/22/2024 6:02 AM GAS APPLIANCE REPAIRER TYPE AND SCREEN Timed 08/22/2024 6:02 AM GAS APPLIANCE REPAIRER EGFR Timed 08/19/2024 6:25 AM GAS APPLIANCE REPAIRER COMPREHENSIVE METABOLIC PANEL Timed 08/19/2024 6:25 AM GAS APPLIANCE REPAIRER CBC WITHOUT DIFFERENTIAL Timed 08/19/2024 6:25 AM GAS APPLIANCE REPAIRER TYPE AND SCREEN Timed 08/19/2024 6:25 AM GAS APPLIANCE REPAIRER US OB LIMITED IP Routine 08/16/2024 8:35 AM GAS APPLIANCE REPAIRER ANTIBODY IDENTIFICATION Routine 08/16/2024 7:34 AM GAS APPLIANCE REPAIRER EGFR Timed 08/16/2024 6:15 AM GAS APPLIANCE REPAIRER THYROID FUNCTION CASCADE Routine 08/16/2024 6:15 AM GAS APPLIANCE REPAIRER COMPREHENSIVE METABOLIC PANEL Timed 08/16/2024 6:15 AM GAS APPLIANCE REPAIRER CBC WITHOUT DIFFERENTIAL Timed 08/16/2024 6:15 AM GAS APPLIANCE REPAIRER TYPE AND SCREEN Timed 08/16/2024 6:15 AM GAS APPLIANCE REPAIRER POCT GLUCOSE DEVICE Routine 08/14/2024 3 :06 PM GAS APPLIANCE REPAIRER ECG 12-LEAD Routine 08/13/2024 9:02 AM GAS APPLIANCE REPAIRER ANTIBODY IDENTIFICATION Routine 08/13/2024 7:42 AM GAS APPLIANCE REPAIRER EGFR Timed 08/13/2024 5:44 AM GAS APPLIANCE REPAIRER COMPREHENSIVE METABOLIC PANEL Timed 08/13/2024 5:44 AM GAS APPLIANCE REPAIRER CBC WITHOUT DIFFERENTIAL Timed 08/13/2024 5:44 AM GAS APPLIANCE REPAIRER TYPE AND SCREEN Timed 08/13/2024 5:44 AM GAS APPLIANCE REPAIRER RPR Routine 08/13/2024 5:44 AM GAS APPLIANCE REPAIRER HIV 1/2 ANTIBODY PLUS P24 ANTIGEN Routine 08/13/2024 5:44 AM GAS APPLIANCE REPAIRER GTT 50GM 1HR GESTATIONAL SCREEN Timed 08/12/2024 11:29 AM GAS APPLIANCE REPAIRER ANTIBODY IDENTIFICATION Routine 08/10/2024 7:02 AM GAS APPLIANCE REPAIRER EGFR Timed 08/10/2024 4:49 AM GAS APPLIANCE REPAIRER COMPREHENSIVE METABOLIC PANEL Timed 08/10/2024 4:49 AM GAS APPLIANCE REPAIRER CBC WITHOUT DIFFERENTIAL Timed 08/10/2024 4:49 AM GAS APPLIANCE REPAIRER TYPE AND SCREEN Timed 08/10/2024 4:49 AM GAS APPLIANCE REPAIRER US OB 14 WEEKS OR OVER IP Routine 08/09/2024 9:47 AM GAS APPLIANCE REPAIRER ANTIBODY IDENTIFICATION Routine 08/07/2024 6:51 AM GAS APPLIANCE REPAIRER EGFR Timed 08/07/2024 5:00 AM GAS APPLIANCE REPAIRER COMPREHENSIVE METABOLIC PANEL Timed 08/07/2024 5:00 AM GAS APPLIANCE REPAIRER CBC WITHOUT DIFFERENTIAL Timed 08/07/2024 5:00 AM GAS APPLIANCE REPAIRER TYPE AND SCREEN Timed 08/07/2024 4:45 AM GAS APPLIANCE REPAIRER CT CHEST PE W CONTRAST ED Urgent/IP [...] Rh Immune Globulin Eval (09/20/2024 4:48 AM GAS APPLIANCE REPAIRER) RhIg Administration 1 vial of Rh Immune Globulin (300 mcg dose) RhIg Eligible Yes, eligible [facility] Blood 09/20/2024 4:48 AM GAS APPLIANCE REPAIRER 09/20/2024 5:03 AM GAS APPLIANCE REPAIRER Narrative [facility] - 09/20/2024 5:36 AM GAS APPLIANCE REPAIRER Number of weeks ?->20 weeks or greater antibody screen result:->Negative Rhogam given?->Given Date Given?->08/01/24 Number of vials requested:->1 Sara Eng MD LAB BLOOD BANK TEST ORDERABL ES Final Result Performing Organization Address [facility] Co de Phone Number [facility] [employer] [place] [address] * Bleed Screen (09/20/2024 4:48 AM GAS APPLIANCE REPAIRER) Bleed Screen Negative Blood 09/20/2024 4:48 AM GAS APPLIANCE REPAIRER 09/20/2024 5:03 AM GAS APPLIANCE REPAIRER Rey Quinonez MD LAB BLOOD BANK TEST ORDERABLE S Final Result Performing Organization Address [facility] Co de Phone Number [facility] [employer] [place] [address] * ABO/Rh (09/20/2024 4:48 AM GAS APPLIANCE REPAIRER) ABO Rh O Negative Blood 09/20/2024 4:48 AM GAS APPLIANCE REPAIRER 09/20/2024 5:03 AM GAS APPLIANCE REPAIRER Rey Quinonez MD LAB BLOOD BANK TEST ORDERABLE S Final Result Performing Organization Address [facility] Co de Phone Number [facility] [employer] [place] [address] * (ABNORMAL) CBC without differential (09/20/2024 4:48 AM GAS APPLIANCE REPAIRER) WBC 10.3(H) 3.8 - 9.9 K/cumm Hgb 9.7(L) 11.9 - 15.5 g/dL [facility] Hct 28.4(L) 35.6 - 45.5 % [facility] Plt 230 150 - 400 K/cumm [facility] MPV 10.8 9.1 - 12.3 fL [facility] RBC 3.22(L) 3.90 - 5.20 M/cumm [facility] MCV 88.2 81.3 - 96.4 fL [facility] MCH 30.1 27.1 - 33.3 pg [facility] MCHC 34.2 32.3 - 35.7 g/dL [facility] RDW CV 13.9 11.1 - 14.9 % [facility] RDW SD 44.6 35.7 - 48.1 fL [facility] NRBC abs 0.00 0.00 - 0.01 K/cumm [facility] Blood 09/20/2024 4:48 AM GAS APPLIANCE REPAIRER 09/20/2024 5:11 AM GAS APPLIANCE REPAIRER us Sara Eng MD LAB BLOOD ORDERABLES Final R esult [facility] Department [place] [address] * Surgical pathology (09/19/2024 4:06 PM GAS APPLIANCE REPAIRER) Tissue (Placenta) 09/19/2024 4:06 PM GAS APPLIANCE REPAIRER 09/20/2024 8:37 AM GAS APPLIANCE REPAIRER Narrative PATHOLOGY [facility] - 09/26/2024 2:16 PM GAS APPLIANCE REPAIRER EPIC results best viewed via link to PDF [facility] [place] [address] Note to Patients: This report may contain [...] SURGICAL PATHOLOGY REPORT FINAL Patient Name: ?? SUKI LEON Gender: ??F : ??1995 (Age: 29) Address: ??[address] [place] [address] ??[id number] Hospital #: ??[id number] Taken:09/19/2024 Received:09/20/2024 Reported: 09/26/2024 Patient Type: [facility] Inpatient ?? Service: Obstetrics Location: [facility] ??[id number] Physician(s): ??MD Sara Parker M.D. Diagnosis: ??Placenta, delivery - 662 grams diamnionic, monochorionic, pre-term twin placenta - Acute atherosis - Accelerated villous maturation -Trivascular cords with no histopathologic abnormalities critical access hospital/09/26/2024 14:16 By this signature, I attest that [...] discrete lesions or infarcts are grossly identified. ??Internet Sales Manager sections are submitted: ??A1 = arbitrarily assigned twin A, cord and membranes; A2-4 = twin A, b2b outside sales representative parenchyma; A5 = common membrane and T- zone; A6 = arbitrarily assigned twin B, cord and membranes; A7-9 = twin B, b2b outside sales representative parenchyma. ??Jar 3. ? sxv/09/21/2024 11:11 PA(s): Catalino Hernandez MS, FREDRICK ([facility])CM By this signature, I attest that the above diagnosis is based upon my personal examination of the slides(and/or other material). Addenda/Procedures The performance characteristics of some immunohistochemical stains, fluorescence in-situ hybridization tests and immunophenotyping by flow cytometry cited in this report (if any) were determined by the Surgical Pathology and Flow Cytometry Departments at [facility] as part of an ongoing research associate quality control qc program and in compliance with federally mandated [...] Surgical Pathology and Flow Cytometry Departments of [facility]. ??It has not been cleared or approved by the U. S. Food and Drug Administration. IMAGES AND SCANNED DOCUMENTS, IF INCLUDED, ONLY VIEWABLE IN PDF VERSION OF REPORT us Sara Eng MD LAB PATHOLOGY ORDERABLES Fin al Result PATHOLOGY [facility] 3rd Floor [place], [place] [phone] * Epidural Block (09/19/2024 2:45 PM GAS APPLIANCE REPAIRER) Narrative Abena Denton MD - 09/19/2024 2:45 PM GAS APPLIANCE REPAIRER Abena Denton MD ? 09/19/2024 ??2:50 PM [...] Final Result * eGFR (09/18/2024 6:21 AM GAS APPLIANCE REPAIRER) eGFR >90 >=60 mL/min/1. 73 m2 Comment: [...] last reviewed 2021. Blood 09/18/2024 6:21 AM GAS APPLIANCE REPAIRER 09/18/2024 6:32 AM GAS APPLIANCE REPAIRER us Anastasia Amaro MD LAB BLOOD ORDERABLES Final Result [facility] Department [place] [address] * (ABNORMAL) CBC without differential (09/18/2024 6:21 AM GAS APPLIANCE REPAIRER) WBC 10.0(H) 3.8 - 9.9 K/cumm Hgb 11.6(L) 11.9 - 15.5 g/dL [facility] Hct 34.0(L) 35.6 - 45.5 % [facility] Plt 250 150 - 400 K/cumm [facility] MPV 11.0 9.1 - 12.3 fL [facility] RBC 3.92 3.90 - 5.20 M/cumm [facility] MCV 86.7 81.3 - 96.4 fL [facility] MCH 29.6 27.1 - 33.3 pg [facility] MCHC 34.1 32.3 - 35.7 g/dL [facility] RDW CV 13.7 11.1 - 14.9 % [facility] RDW SD 43.1 35.7 - 48.1 fL [facility] NRBC abs 0.00 0.00 - 0.01 K/cumm [facility] Blood 09/18/2024 6:21 AM GAS APPLIANCE REPAIRER 09/18/2024 6:32 AM GAS APPLIANCE REPAIRER Anastasia Amaro MD LAB BLOOD ORDERABLES Final Result Performing Organization Address City/[facility] Co de Phone Number [facility] Department [place] [address] * Type and screen (09/18/2024 6:21 AM GAS APPLIANCE REPAIRER) [facility] Abiodun, indirect Negative ABO Rh O Negative [facility] Blood 09/18/2024 6:21 AM GAS APPLIANCE REPAIRER 09/18/2024 6:35 AM GAS APPLIANCE REPAIRER Narrative [facility] - 09/18/2024 7:42 AM GAS APPLIANCE REPAIRER Has the patient had Daratumumab or Isatuximab in the past 6 months?->Unknown Anastasia Amaro MD LAB BLOOD BANK TEST ORDERA BLES Final Result Performing Organization Address [facility] de Phone Number [facility] Department [place] [address] * (ABNORMAL) Comprehensive metabolic panel (09/18/2024 6:21 AM GAS APPLIANCE REPAIRER) [facility] Sodium 134(L) 135 - 145 mmol/L Potassium, pl 3.8 3.3 - 4.9 mmol/L [facility] Chloride 105 97 - 110 mmol/L [facility] CO2 23 22 - 32 mmol/L [facility] Anion gap 6 2 - 15 mmol/L [facility] BUN 9 6 - 25 mg/dL [facility] Creatinine 0.69 0.60 - 1.10 mg/dL [facility] Glucose 68(L) 70 - 199 mg/dL [facility] Comment: Interpretive Data Fasting glucose >/= 126 [...] 2022. Calcium 9.0 8.5 - 10.3 mg/dL [facility] Bilirubin, total 0.2 0.1 - 1.2 mg/dL [facility] Protein, pl 6.3(L) 6.5 - 8.5 g/dL [facility] Albumin 3.0(L) 3.5 - 5.0 g/dL [facility] Alk phos 125 40 - 130 Units/L [facility] ALT 14 7 - 45 Units/L [facility] AST 16 10 - 45 Units/L [facility] Blood 09/18/2024 6:21 AM GAS APPLIANCE REPAIRER 09/18/2024 6:32 AM GAS APPLIANCE REPAIRER us Anastasia Amaro MD LAB BLOOD ORDERABLES Final Result [facility] Department [place] [address] * nonstress test (09/17/2024 2:58 PM GAS APPLIANCE REPAIRER) Narrative Sandra Christy MD - 09/17/2024 2:58 PM GAS APPLIANCE REPAIRER Joellen Schilling MD ? 09/17/2024 ??4:04 PM nonstress test Date/Time: 09/17/2024 2:58 PM Performed by: Maureen Calix MD Authorized by: Ana M Rogers MD ?? us Ana M Rogers MD OB GYNE ORDERABLES Fi nal Result * US Ob Follow Up (09/15/2024 1:08 PM GAS APPLIANCE REPAIRER) Fetus# Fetus1 VIEWPOINT Estimated Weight 1,709 g&grams VIEWPOINT Placenta Details anterior VIEWPOINT Presentation Vertex; Maternal right- low VIEWPOINT Fetus# Fetus2 VIEWPOINT Estimated Weight 2,585 g&grams VIEWPOINT Placenta Details anterior VIEWPOINT Presentation Vertex; Maternal left- high VIEWPOINT Anatomical Region Laterality Modality Abdomen N/A Ultrasound 09/15/2024 1:08 PM GAS APPLIANCE REPAIRER Impressions 09/15/2024 2:24 PM GAS APPLIANCE REPAIRER Diamniotic (presumed MCDA) TIUP at 33w33d who is admitted for preE with severe features who presents for growth US was previously determined to be monochorionic by the [facility] MFM practice. A thin dividing membrane and single [...] previously determined to be monochorionic by the [facility] MFMpractice. A thin dividing membrane and single placental [...] R esult * eGFR (09/15/2024 6:17 AM GAS APPLIANCE REPAIRER) [facility] eGFR >90 >=60 mL/min/1. 73 m2 Comment: [...] last reviewed 2021. Blood 09/15/2024 6:17 AM GAS APPLIANCE REPAIRER 09/15/2024 6:31 AM GAS APPLIANCE REPAIRER us Anastasia Amaro MD LAB BLOOD ORDERABLES Final Result [facility] Department [place] [address] * (ABNORMAL) CBC without differential (09/15/2024 6:17 AM GAS APPLIANCE REPAIRER) WBC 10.1(H) 3.8 - 9.9 K/cumm Hgb 11.7(L) 11.9 - 15.5 g/dL [facility] Hct 34.6(L) 35.6 - 45.5 % [facility] Plt 253 150 - 400 K/cumm [facility] MPV 11.2 9.1 - 12.3 fL [facility] RBC 3.94 3.90 - 5.20 M/cumm [facility] MCV 87.8 81.3 - 96.4 fL [facility] MCH 29.7 27.1 - 33.3 pg [facility] MCHC 33.8 32.3 - 35.7 g/dL [facility] RDW CV 13.8 11.1 - 14.9 % [facility] RDW SD 44.1 35.7 - 48.1 fL [facility] NRBC abs 0.00 0.00 - 0.01 K/cumm [facility] Blood 09/15/2024 6:17 AM GAS APPLIANCE REPAIRER 09/15/2024 6:31 AM GAS APPLIANCE REPAIRER Anastasia Amaro MD LAB BLOOD ORDERABLES Final Result Performing Organization Address [facility] de Phone Number [facility] [employer] [place] [address] * Type and screen (09/15/2024 6:17 AM GAS APPLIANCE REPAIRER) [facility] Abiodun, indirect Negative Comment:Patient has previous antibody history ABO Rh O Negative [facility] Blood 09/15/2024 6:17 AM GAS APPLIANCE REPAIRER 09/15/2024 6:30 AM GAS APPLIANCE REPAIRER Narrative [facility] [place] - 09/15/2024 7:57 AM GAS APPLIANCE REPAIRER Has the patient had Daratumumab or Isatuximab in the past 6 months?->Unknown Anastasia Amaro MD LAB BLOOD BANK TEST ORDERA BLES Final Result Performing Organization Address [facility] de Phone Number [facility] [employer] [place] [address] * (ABNORMAL) Comprehensive metabolic panel (09/15/2024 6:17 AM GAS APPLIANCE REPAIRER) [facility] Sodium 139 135 - 145 mmol/L Potassium, pl 3.5 3.3 - 4.9 mmol/L [facility] Chloride 106 97 - 110 mmol/L [facility] CO2 21(L) 22 - 32 mmol/L [facility] Anion gap 12 2 - 15 mmol/L [facility] BUN 8 6 - 25 mg/dL [facility] Creatinine 0.66 0.60 - 1.10 mg/dL [facility] Glucose 106 70 - 199 mg/dL [facility] Comment: Interpretive Data Fasting glucose >/= 126 [...] 2022. Calcium 9.0 8.5 - 10.3 mg/dL [facility] Bilirubin, total <0.2 0.1 - 1.2 mg/dL [facility] Protein, pl 6.4(L) 6.5 - 8.5 g/dL [facility] Albumin 3.0(L) 3.5 - 5.0 g/dL [facility] Alk phos 124 40 - 130 Units/L [facility] ALT 19 7 - 45 Units/L [facility] AST 20 10 - 45 Units/L [facility] Blood 09/15/2024 6:17 AM GAS APPLIANCE REPAIRER 09/15/2024 6:31 AM GAS APPLIANCE REPAIRER us Anastasia Amaro MD LAB BLOOD ORDERABLES Final Result [facility] Department [place] [address] * nonstress test (09/13/2024 5:10 PM GAS APPLIANCE REPAIRER) Narrative Sandra Christy MD - 09/13/2024 5:10 PM GAS APPLIANCE REPAIRER Anastasia Plaza MD ? 09/13/2024 ??5:21 PM [...] nal Result * eGFR (09/12/2024 6:35 AM GAS APPLIANCE REPAIRER) eGFR >90 >=60 mL/min/1. 73 m2 Comment: [...] last reviewed 2021. Blood 09/12/2024 6:35 AM GAS APPLIANCE REPAIRER 09/12/2024 6:51 AM GAS APPLIANCE REPAIRER us Anastasia Amaro MD LAB BLOOD ORDERABLES Final Result [facility] Department of Laboratories [place], [place] [id number] * (ABNORMAL) CBC without differential (09/12/2024 6:35 AM GAS APPLIANCE REPAIRER) WBC 10.0(H) 3.8 - 9.9 K/cumm Hgb 11.8(L) 11.9 - 15.5 g/dL BIA TODD Hct 35.3(L) 35.6 - 45.5 % [facility] Plt 226 150 - 400 K/cumm [facility] MPV 11.2 9.1 - 12.3 fL [facility] RBC 3.97 3.90 - 5.20 M/cumm [facility] MCV 88.9 81.3 - 96.4 fL [facility] MCH 29.7 27.1 - 33.3 pg [facility] MCHC 33.4 32.3 - 35.7 g/dL [facility] RDW CV 13.8 11.1 - 14.9 % [facility] RDW SD 44.5 35.7 - 48.1 fL [facility] NRBC abs 0.02(H) 0.00 - 0.01 K/cumm [facility] Blood 09/12/2024 6:35 AM GAS APPLIANCE REPAIRER 09/12/2024 6:52 AM GAS APPLIANCE REPAIRER us Anastasia Amaro MD LAB BLOOD ORDERABLES Final Result Performing Organization Address [facility] Co de Phone Number [facility] Department of [employer] [place] [address] * Type and screen (09/12/2024 6:35 AM GAS APPLIANCE REPAIRER) Pathologist [facility] ABO Rh O Negative Abiodun, indirect Negative [facility] Comment:Patient has previous antibody history Blood 09/12/2024 6:35 AM GAS APPLIANCE REPAIRER 09/12/2024 6:48 AM GAS APPLIANCE REPAIRER Narrative [facility] - 09/12/2024 7:49 AM GAS APPLIANCE REPAIRER Has the patient had Daratumumab or Isatuximab in the past 6 months?->Unknown us Anastasia Amaro MD LAB BLOOD BANK TEST ORDERA BLES Final Result Performing Organization Address City/[facility]/ZIP Co de Phone Number [facility] [employer] [place], [place] [id number] * (ABNORMAL) Comprehensive metabolic panel (09/12/2024 6:35 AM GAS APPLIANCE REPAIRER) Pathologist [facility] Sodium 139 135 - 145 mmol/L Potassium, pl 3.8 3.3 - 4.9 mmol/L [facility] Chloride 107 97 - 110 mmol/L [facility] CO2 22 22 - 32 mmol/L [facility] Anion gap 10 2 - 15 mmol/L [facility] BUN 6 6 - 25 mg/dL [facility] Creatinine 0.64 0.60 - 1.10 mg/dL [facility] Glucose 69(L) 70 - 199 mg/dL [facility] Comment: Interpretive Data Fasting glucose >/= 126 [...] 2022. Calcium 8.8 8.5 - 10.3 mg/dL [facility] Bilirubin, total <0.2 0.1 - 1.2 mg/dL [facility] Protein, pl 6.4(L) 6.5 - 8.5 g/dL [facility] Albumin 3.1(L) 3.5 - 5.0 g/dL [facility] Alk phos 122 40 - 130 Units/L [facility] ALT 22 7 - 45 Units/L [facility] AST 23 10 - 45 Units/L [facility] Blood 09/12/2024 6:35 AM GAS APPLIANCE REPAIRER 09/12/2024 6:51 AM GAS APPLIANCE REPAIRER us Anastasia Amaro MD LAB BLOOD ORDERABLES Final Result [facility] [place] [address] * eGFR (09/09/2024 6:24 AM GAS APPLIANCE REPAIRER) [facility] eGFR >90 >=60 mL/min/1. 73 m2 Comment: [...] last reviewed 2021. Blood 09/09/2024 6:24 AM GAS APPLIANCE REPAIRER 09/09/2024 6:52 AM GAS APPLIANCE REPAIRER us Anastasia Amaro MD LAB BLOOD ORDERABLES Final Result Performing Organization Address City/State/[facility] Co de Phone Number [facility] Department [place] [address] * (ABNORMAL) CBC without differential (09/09/2024 6:24 AM GAS APPLIANCE REPAIRER) WBC 8.6 3.8 - 9.9 K/cumm Hgb 10.9(L) 11.9 - 15.5 g/dL [facility] Hct 33.1(L) 35.6 - 45.5 % [facility] Plt 239 150 - 400 K/cumm [facility] MPV 11.0 9.1 - 12.3 fL [facility] RBC 3.77(L) 3.90 - 5.20 M/cumm [facility] MCV 87.8 81.3 - 96.4 fL [facility] MCH 28.9 27.1 - 33.3 pg [facility] MCHC 32.9 32.3 - 35.7 g/dL [facility] RDW CV 13.8 11.1 - 14.9 % [facility] RDW SD 43.8 35.7 - 48.1 fL [facility] NRBC abs 0.00 0.00 - 0.01 K/cumm [facility] Blood 09/09/2024 6:24 AM GAS APPLIANCE REPAIRER 09/09/2024 6:52 AM GAS APPLIANCE REPAIRER Anastasia Amaro MD LAB BLOOD ORDERABLES Final Result Performing Organization Address [facility] de Phone Number [facility] Department of [employer] [place] [address] * Type and screen (09/09/2024 6:24 AM GAS APPLIANCE REPAIRER) ABO Rh O Negative Abiodun, indirect Negative [facility] Comment:Patient has previous antibody history Blood 09/09/2024 6:24 AM GAS APPLIANCE REPAIRER 09/09/2024 7:19 AM GAS APPLIANCE REPAIRER Narrative [facility] - 09/09/2024 8:51 AM GAS APPLIANCE REPAIRER Has the patient had Daratumumab or Isatuximab in the past 6 months?->Unknown Anastasia Amaro MD LAB BLOOD BANK TEST ORDERA BLES Final Result Performing Organization Address City/[facility] Co de Phone Number [facility] [employer] [place] [address] * (ABNORMAL) Comprehensive metabolic panel (09/09/2024 6:24 AM GAS APPLIANCE REPAIRER) Sodium 141 135 - 145 mmol/L Potassium, pl 3.8 3.3 - 4.9 mmol/L [facility] Chloride 108 97 - 110 mmol/L [facility] CO2 22 22 - 32 mmol/L [facility] Anion gap 11 2 - 15 mmol/L [facility] BUN 8 6 - 25 mg/dL [facility] Creatinine 0.75 0.60 - 1.10 mg/dL [facility] Glucose 70 70 - 199 mg/dL [facility] Comment: Interpretive Data Fasting glucose >/= 126 [...] 2022. Calcium 8.9 8.5 - 10.3 mg/dL [facility] Bilirubin, total <0.2 0.1 - 1.2 mg/dL [facility] Protein, pl 6.2(L) 6.5 - 8.5 g/dL [facility] Albumin 3.2(L) 3.5 - 5.0 g/dL [facility] Alk phos 117 40 - 130 Units/L [facility] ALT 22 7 - 45 Units/L [facility] AST 23 10 - 45 Units/L [facility] Blood 09/09/2024 6:24 AM GAS APPLIANCE REPAIRER 09/09/2024 6:52 AM GAS APPLIANCE REPAIRER us Anastasia Amaro MD LAB BLOOD ORDERABLES Final Result [facility] One [facility] [place] [address] * US Ob Limited (09/08/2024 10:29 AM GAS APPLIANCE REPAIRER) Fetus# Fetus1 VIEWPOINT Placenta Details anterior VIEWPOINT Presentation Vertex; Maternal right- low VIEWPOINT Fetus# Fetus2 VIEWPOINT Placenta Details anterior VIEWPOINT Presentation Vertex; Maternal left- high (presenting) VIEWPOINT Anatomical Region Laterality Modality Abdomen N/A Ultrasound 09/08/2024 10:2 9 AM GAS APPLIANCE REPAIRER Impressions 09/08/2024 11:25 AM GAS APPLIANCE REPAIRER 1. Mo/di twin IUP at 32w 3d. [...] esult * nonstress test (09/06/2024 8:38 PM GAS APPLIANCE REPAIRER) Narrative Anastasia Amaro MD - 09/06/2024 8:38 PM GAS APPLIANCE REPAIRER Pauline Simms MD ? 09/06/2024 ??8:41 PM Baby A FHR Baseline: 125 Variability: moderate Accelerations: absent Decelerations: absent in last part of tracing, was initially having small variable decels in monitoring Reactive: Yes Baby B FHR Baseline: 130 Variability: moderate Accelerations: present Decelerations: absent Reactive: Yes 29 y.o. at 32w1d a/f preeclampsia with SF On monitor [id number] Contractions: absent I have reviewed NST and instructed RN to take off monitor Pauline Simms MD us Ana M Rogers MD OB GYNE ORDERABLES Fi nal Result * eGFR (09/06/2024 4:31 AM GAS APPLIANCE REPAIRER) eGFR >90 >=60 mL/min/1. 73 m2 Comment: [...] last reviewed 2021. Blood 09/06/2024 4:31 AM GAS APPLIANCE REPAIRER 09/06/2024 4:53 AM GAS APPLIANCE REPAIRER us Anastasia Amaro MD LAB BLOOD ORDERABLES Final Result [facility] Department [place] [address] * (ABNORMAL) CBC without differential (09/06/2024 4:31 AM GAS APPLIANCE REPAIRER) Pathologist [facility] WBC 10.3(H) 3.8 - 9.9 K/cumm Hgb 11.7(L) 11.9 - 15.5 g/dL [facility] Hct 34.5(L) 35.6 - 45.5 % [facility] Plt 249 150 - 400 K/cumm [facility] MPV 11.1 9.1 - 12.3 fL [facility] RBC 3.96 3.90 - 5.20 M/cumm [facility] MCV 87.1 81.3 - 96.4 fL [facility] MCH 29.5 27.1 - 33.3 pg [facility] MCHC 33.9 32.3 - 35.7 g/dL [facility] RDW CV 13.6 11.1 - 14.9 % [facility] RDW SD 42.7 35.7 - 48.1 fL [facility] NRBC abs 0.00 0.00 - 0.01 K/cumm [facility] Blood 09/06/2024 4:31 AM GAS APPLIANCE REPAIRER 09/06/2024 4:54 AM GAS APPLIANCE REPAIRER Anastasia Amaro MD LAB BLOOD ORDERABLES Final Result [facility] Department [place] [address] * Type and screen (09/06/2024 4:31 AM GAS APPLIANCE REPAIRER) Pathologist [facility] ABO Rh O Negative Abiodun, indirect Negative [facility] Comment:Patient has previous antibody history Blood 09/06/2024 4:31 AM GAS APPLIANCE REPAIRER 09/06/2024 6:11 AM GAS APPLIANCE REPAIRER Narrative [facility] - 09/06/2024 7:16 AM GAS APPLIANCE REPAIRER Has the patient had Daratumumab or Isatuximab in the past 6 months?->Unknown Anastasia Amaro MD LAB BLOOD BANK TEST ORDERA BLES Final Result [facility] Department [place] [address] * (ABNORMAL) Comprehensive metabolic panel (09/06/2024 4:31 AM GAS APPLIANCE REPAIRER) Sodium 138 135 - 145 mmol/L Potassium, pl 3.6 3.3 - 4.9 mmol/L [facility] Chloride 105 97 - 110 mmol/L [facility] CO2 24 22 - 32 mmol/L [facility] Anion gap 9 2 - 15 mmol/L [facility] BUN 7 6 - 25 mg/dL [facility] Creatinine 0.63 0.60 - 1.10 mg/dL [facility] Glucose 62(L) 70 - 199 mg/dL [facility] Comment: Interpretive Data Fasting glucose >/= 126 [...] 2022. Calcium 9.3 8.5 - 10.3 mg/dL [facility] Bilirubin, total 0.3 0.1 - 1.2 mg/dL [facility] Protein, pl 6.6 6.5 - 8.5 g/dL [facility] Albumin 3.2(L) 3.5 - 5.0 g/dL [facility] Alk phos 118 40 - 130 Units/L [facility] ALT 23 7 - 45 Units/L [facility] AST 22 10 - 45 Units/L [facility] Blood 09/06/2024 4:31 AM GAS APPLIANCE REPAIRER 09/06/2024 4:53 AM GAS APPLIANCE REPAIRER Anastasia Amaro MD LAB BLOOD ORDERABLES Final Result Performing Organization Address [facility] [place] [address] * Group B streptococcal culture Vaginal/Rectal (09/03/2024 10:29 AM GAS APPLIANCE REPAIRER) Report Final Report: Negative Vaginal/Rectal 09/03/2024 10 :29 AM GAS APPLIANCE REPAIRER 09/03/2024 10:47 AM GAS APPLIANCE REPAIRER Narrative [facility] - 09/07/2024 11:05 AM GAS APPLIANCE REPAIRER Testing performed by [facility] ([phone]). us Joellen Julio MD LAB MICROBIOLOGY - GENERAL O RDERABLES Final Result Performing Organization Address [facility] de Phone Number [facility] [place] [address] * eGFR (09/03/2024 5:26 AM GAS APPLIANCE REPAIRER) eGFR >90 >=60 mL/min/1. 73 m2 Comment: [...] last reviewed 2021. Blood 09/03/2024 5:26 AM GAS APPLIANCE REPAIRER 09/03/2024 5:39 AM GAS APPLIANCE REPAIRER us Anastasia Amaro MD LAB BLOOD ORDERABLES Final Result [facility] Department of [employer] [place] [address] * (ABNORMAL) CBC without differential (09/03/2024 5:26 AM GAS APPLIANCE REPAIRER) WBC 12.1(H) 3.8 - 9.9 K/cumm Hgb 11.7(L) 11.9 - 15.5 g/dL [facility] Hct 34.0(L) 35.6 - 45.5 % [facility] Plt 273 150 - 400 K/cumm [facility] MPV 11.0 9.1 - 12.3 fL [facility] RBC 3.97 3.90 - 5.20 M/cumm [facility] MCV 85.6 81.3 - 96.4 fL [facility] MCH 29.5 27.1 - 33.3 pg [facility] MCHC 34.4 32.3 - 35.7 g/dL [facility] RDW CV 13.3 11.1 - 14.9 % [facility] RDW SD 41.7 35.7 - 48.1 fL [facility] NRBC abs 0.00 0.00 - 0.01 K/cumm [facility] Blood 09/03/2024 5:26 AM GAS APPLIANCE REPAIRER 09/03/2024 5:39 AM GAS APPLIANCE REPAIRER us Anastasia Amaro MD LAB BLOOD ORDERABLES Final Result Performing Organization Address City/[facility]/ZIP Co de Phone Number [facility] Department [place] [address] * Type and screen (09/03/2024 5:26 AM GAS APPLIANCE REPAIRER) Pathologist [facility] Abiodun, indirect Negative Comment:Patient has previous antibody history ABO Rh O Negative [facility] Blood 09/03/2024 5:26 AM GAS APPLIANCE REPAIRER 09/03/2024 5:32 AM GAS APPLIANCE REPAIRER Narrative [facility] - 09/03/2024 6:27 AM GAS APPLIANCE REPAIRER Has the patient had Daratumumab or Isatuximab in the past 6 months?->Unknown Anastasia Amaro MD LAB BLOOD BANK TEST ORDERA BLES Final Result [facility] [place] [address] * (ABNORMAL) Comprehensive metabolic panel (09/03/2024 5:26 AM GAS APPLIANCE REPAIRER) Pathologist [facility] Sodium 139 135 - 145 mmol/L Potassium, pl 4.0 3.3 - 4.9 mmol/L [facility] Chloride 105 97 - 110 mmol/L [facility] CO2 20(L) 22 - 32 mmol/L [facility] Anion gap 14 2 - 15 mmol/L [facility] BUN 8 6 - 25 mg/dL [facility] Creatinine 0.55(L) 0.60 - 1.10 mg/dL [facility] Glucose 68(L) 70 - 199 mg/dL [facility] Comment: Interpretive Data Fasting glucose >/= 126 [...] 2022. Calcium 9.3 8.5 - 10.3 mg/dL [facility] Bilirubin, total 0.3 0.1 - 1.2 mg/dL [facility] Protein, pl 6.4(L) 6.5 - 8.5 g/dL [facility] Albumin 3.3(L) 3.5 - 5.0 g/dL [facility] Alk phos 111 40 - 130 Units/L [facility] ALT 22 7 - 45 Units/L [facility] AST 24 10 - 45 Units/L [facility] Blood 09/03/2024 5:26 AM GAS APPLIANCE REPAIRER 09/03/2024 5:39 AM GAS APPLIANCE REPAIRER us Anastasia Amaro MD LAB BLOOD ORDERABLES Final Result Performing Organization Address City/[facility] Co de Phone Number [facility] One [facility] Department [place] [address] * ECG 12 lead (09/02/2024 4:33 PM GAS APPLIANCE REPAIRER) Pathologist [facility] Ventricular Rate EKG/Min 110 BPM [facility] Atrial Rate [address] [facility] [place]-Interval (MSEC) [address] [facility] QRS-Interval (MSEC) [address] [facility] QT-Interval (MSEC) [address] [facility] QTc [address] [facility] P [place]y [address] [facility] R [place]y [address] [facility] T [place]y [address] [facility] Diagnosis Sinus tachycardia Otherwise normal ECG No previous ECGs available Confirmed by SAMANTA KAPLAN M.D ([id number]) on 09/06/2024 2:44:26 PM [facility] 09/02/2024 4:33 PM GAS APPLIANCE REPAIRER 09/06/2024 2:44 PM GAS APPLIANCE REPAIRER us Joellen Julio MD ECG ORDERABLES Final Result [facility] * eGFR (08/31/2024 6:20 AM GAS APPLIANCE REPAIRER) eGFR >90 >=60 mL/min/1. 73 m2 Comment: [...] last reviewed 2021. Blood 08/31/2024 6:20 AM GAS APPLIANCE REPAIRER 08/31/2024 7:25 AM GAS APPLIANCE REPAIRER us Anastasia Amaro MD LAB BLOOD ORDERABLES Final Result [facility] Department [place] [address] * (ABNORMAL) CBC without differential (08/31/2024 6:20 AM GAS APPLIANCE REPAIRER) WBC 10.5(H) 3.8 - 9.9 K/cumm Hgb 11.5(L) 11.9 - 15.5 g/dL [facility] Hct 34.1(L) 35.6 - 45.5 % [facility] Plt 282 150 - 400 K/cumm [facility] MPV 10.9 9.1 - 12.3 fL [facility] RBC 3.93 3.90 - 5.20 M/cumm [facility] MCV 86.8 81.3 - 96.4 fL [facility] MCH 29.3 27.1 - 33.3 pg [facility] MCHC 33.7 32.3 - 35.7 g/dL [facility] RDW CV 13.7 11.1 - 14.9 % [facility] RDW SD 42.6 35.7 - 48.1 fL [facility] NRBC abs 0.00 0.00 - 0.01 K/cumm [facility] Blood 08/31/2024 6:20 AM GAS APPLIANCE REPAIRER 08/31/2024 7:25 AM GAS APPLIANCE REPAIRER Anastasia Amaro MD LAB BLOOD ORDERABLES Final Result Performing Organization Address [facility] Co de Phone Number [facility] Department [place] [address] * Type and screen (08/31/2024 6:20 AM GAS APPLIANCE REPAIRER) [facility] ABO Rh O Negative Abiodun, indirect Negative [facility] Comment:Patient has previous antibody history Blood 08/31/2024 6:20 AM GAS APPLIANCE REPAIRER 08/31/2024 7:41 AM GAS APPLIANCE REPAIRER Narrative [facility] - 08/31/2024 8:26 AM GAS APPLIANCE REPAIRER Has the patient had Daratumumab or Isatuximab in the past 6 months?->Unknown Anastasia Amaro MD LAB BLOOD BANK TEST ORDERA BLES Final Result Performing Organization Address City/[facility] Co de Phone Number [facility] Department [place] [address] * (ABNORMAL) Comprehensive metabolic panel (08/31/2024 6:20 AM GAS APPLIANCE REPAIRER) [facility] Sodium 137 135 - 145 mmol/L Potassium, pl 3.7 3.3 - 4.9 mmol/L [facility] Chloride 103 97 - 110 mmol/L [facility] CO2 22 22 - 32 mmol/L [facility] Anion gap 12 2 - 15 mmol/L [facility] BUN 6 6 - 25 mg/dL [facility] Creatinine 0.56(L) 0.60 - 1.10 mg/dL [facility] Glucose 70 70 - 199 mg/dL [facility] Comment: Interpretive Data Fasting glucose >/= 126 [...] 2022. Calcium 9.5 8.5 - 10.3 mg/dL [facility] Bilirubin, total 0.2 0.1 - 1.2 mg/dL [facility] Protein, pl 6.4(L) 6.5 - 8.5 g/dL [facility] Albumin 3.2(L) 3.5 - 5.0 g/dL [facility] Alk phos 103 40 - 130 Units/L [facility] ALT 28 7 - 45 Units/L [facility] AST 25 10 - 45 Units/L [facility] Blood 08/31/2024 6:20 AM GAS APPLIANCE REPAIRER 08/31/2024 7:25 AM GAS APPLIANCE REPAIRER us Anastasia Amaro MD LAB BLOOD ORDERABLES Final Result Performing Organization Address City/State/[facility] Co ok Phone Number [facility] One [facility] Department [place] [address] * nonstress test (08/29/2024 2:32 PM GAS APPLIANCE REPAIRER) Narrative Nini Cortez MD - 08/29/2024 2:32 PM GAS APPLIANCE REPAIRER Maureen Calix MD ? 08/29/2024 ??3:38 PM nonstress test Date/Time: 08/29/2024 2:32 PM Performed by: Maureen Calix MD Authorized by: Ana M Rogers MD ?? us Ana M Rogers MD OB GYNE ORDERABLES Fi nal Result * nonstress test (08/28/2024 7:47 PM GAS APPLIANCE REPAIRER) Narrative Nini Cortez MD - 08/28/2024 7:47 PM GAS APPLIANCE REPAIRER Francisca Yun MD ? 08/28/2024 ??7:48 PM A FHR Baseline: 120 Variability: moderate Reactive: Yes Contractions: absent B FHR Baseline: 130 Variability: moderate Reactive: Yes Contractions: absent Comments: No decels x2 I have reviewed NST and instructed RN to take off monitor Francisca Yun MD us Ana M Rogers MD OB GYNE ORDERABLES Fi nal Result * eGFR (08/28/2024 6:00 AM GAS APPLIANCE REPAIRER) eGFR >90 >=60 mL/min/1. 73 m2 Comment: [...] last reviewed 2021. Blood 08/28/2024 6:00 AM GAS APPLIANCE REPAIRER 08/28/2024 6:13 AM GAS APPLIANCE REPAIRER us Anastasia Amaro MD LAB BLOOD ORDERABLES Final Result Performing Organization Address [facility]/ZIP Co de Phone Number [facility] [place] [address] * (ABNORMAL) CBC without differential (08/28/2024 6:00 AM GAS APPLIANCE REPAIRER) Pathologist [facility] WBC 10.3(H) 3.8 - 9.9 K/cumm Hgb 11.2(L) 11.9 - 15.5 g/dL [facility] Hct 33.0(L) 35.6 - 45.5 % [facility] Plt 289 150 - 400 K/cumm [facility] MPV 10.7 9.1 - 12.3 fL [facility] RBC 3.78(L) 3.90 - 5.20 M/cumm [facility] MCV 87.3 81.3 - 96.4 fL [facility] MCH 29.6 27.1 - 33.3 pg [facility] MCHC 33.9 32.3 - 35.7 g/dL [facility] RDW CV 13.7 11.1 - 14.9 % [facility] RDW SD 43.6 35.7 - 48.1 fL [facility] NRBC abs 0.00 0.00 - 0.01 K/cumm [facility] Blood 08/28/2024 6:00 AM GAS APPLIANCE REPAIRER 08/28/2024 6:20 AM GAS APPLIANCE REPAIRER us Anastasia Amaro MD LAB BLOOD ORDERABLES Final Result [facility] [place] [address] * Type and screen (08/28/2024 6:00 AM GAS APPLIANCE REPAIRER) Pathologist [facility] ABO Rh O Negative Comment:Patient has previous antibody history Abiodun, indirect Negative [facility] Blood 08/28/2024 6:00 AM GAS APPLIANCE REPAIRER 08/28/2024 6:54 AM GAS APPLIANCE REPAIRER Narrative [facility] - 08/28/2024 7:53 AM GAS APPLIANCE REPAIRER Has the patient had Daratumumab or Isatuximab in the past 6 months?->Unknown Anastasia Aamro MD LAB BLOOD BANK TEST ORDERA BLES Final Result [facility] Department [place] [address] * (ABNORMAL) Comprehensive metabolic panel (08/28/2024 6:00 AM GAS APPLIANCE REPAIRER) Pathologist [facility] Sodium 137 135 - 145 mmol/L Potassium, pl 3.6 3.3 - 4.9 mmol/L [facility] Chloride 105 97 - 110 mmol/L [facility] CO2 21(L) 22 - 32 mmol/L [facility] Anion gap 11 2 - 15 mmol/L [facility] BUN 8 6 - 25 mg/dL [facility] Creatinine 0.52(L) 0.60 - 1.10 mg/dL [facility] Glucose 74 70 - 199 mg/dL [facility] Comment: Interpretive Data Fasting glucose >/= 126 [...] 2022. Calcium 9.3 8.5 - 10.3 mg/dL [facility] Bilirubin, total 0.2 0.1 - 1.2 mg/dL [facility] Protein, pl 6.2(L) 6.5 - 8.5 g/dL [facility] Albumin 3.2(L) 3.5 - 5.0 g/dL [facility] Alk phos 96 40 - 130 Units/L [facility] ALT 25 7 - 45 Units/L [facility] AST 22 10 - 45 Units/L [facility] Blood 08/28/2024 6:00 AM GAS APPLIANCE REPAIRER 08/28/2024 6:13 AM GAS APPLIANCE REPAIRER us Anastasia Amaro MD LAB BLOOD ORDERABLES Final Result [facility] Department [place] [address] * eGFR (08/25/2024 6:19 AM GAS APPLIANCE REPAIRER) eGFR >90 >=60 mL/min/1. 73 m2 Comment: [...] last reviewed 2021. Blood 08/25/2024 6:19 AM GAS APPLIANCE REPAIRER 08/25/2024 6:33 AM GAS APPLIANCE REPAIRER Anastasia Amaro MD LAB BLOOD ORDERABLES Final Result Performing Organization Address City/[facility]/ZIP Co de Phone Number [facility] [place] [address] * (ABNORMAL) CBC without differential (08/25/2024 6:19 AM GAS APPLIANCE REPAIRER) Pathologist [facility] WBC 10.5(H) 3.8 - 9.9 K/cumm Hgb 11.4(L) 11.9 - 15.5 g/dL [facility] Hct 33.4(L) 35.6 - 45.5 % [facility] Plt 299 150 - 400 K/cumm [facility] MPV 10.6 9.1 - 12.3 fL [facility] RBC 3.90 3.90 - 5.20 M/cumm [facility] MCV 85.6 81.3 - 96.4 fL [facility] MCH 29.2 27.1 - 33.3 pg [facility] MCHC 34.1 32.3 - 35.7 g/dL [facility] RDW CV 13.4 11.1 - 14.9 % [facility] RDW SD 41.7 35.7 - 48.1 fL [facility] NRBC abs 0.00 0.00 - 0.01 K/cumm [facility] Blood 08/25/2024 6:19 AM GAS APPLIANCE REPAIRER 08/25/2024 6:32 AM GAS APPLIANCE REPAIRER Anastasia Amaro MD LAB BLOOD ORDERABLES Final Result Performing Organization Address City/[facility]/ZIP Co de Phone Number [facility] Department [place] [address] * Type and screen (08/25/2024 6:19 AM GAS APPLIANCE REPAIRER) Pathologist [facility] Abiodun, indirect Negative Comment:Patient has previous antibody history ABO Rh O Negative [facility] Blood 08/25/2024 6:19 AM GAS APPLIANCE REPAIRER 08/25/2024 7:06 AM GAS APPLIANCE REPAIRER Narrative [facility] - 08/25/2024 8:01 AM GAS APPLIANCE REPAIRER Has the patient had Daratumumab or Isatuximab in the past 6 months?->Unknown Anastasia Amaro MD LAB BLOOD BANK TEST ORDERA BLES Final Result [facility] Department [place] [address] * (ABNORMAL) Comprehensive metabolic panel (08/25/2024 6:19 AM GAS APPLIANCE REPAIRER) Sodium 139 135 - 145 mmol/L Potassium, pl 3.5 3.3 - 4.9 mmol/L [facility] Chloride 105 97 - 110 mmol/L [facility] CO2 22 22 - 32 mmol/L [facility] Anion gap 12 2 - 15 mmol/L [facility] BUN 6 6 - 25 mg/dL [facility] Creatinine 0.53(L) 0.60 - 1.10 mg/dL [facility] Glucose 70 70 - 199 mg/dL [facility] Comment: Interpretive Data Fasting glucose >/= 126 [...] Calcium 9.2 8.5 - 10.3 mg/dL [facility] Bilirubin, total 0.2 0.1 - 1.2 mg/dL [facility] Protein, pl 6.4(L) 6.5 - 8.5 g/dL [facility] Albumin 3.2(L) 3.5 - 5.0 g/dL [facility] Alk phos 92 40 - 130 Units/L [facility] ALT 22 7 - 45 Units/L [facility] AST 22 10 - 45 Units/L [facility] Blood 08/25/2024 6:19 AM GAS APPLIANCE REPAIRER 08/25/2024 6:33 AM GAS APPLIANCE REPAIRER us Anastasia Amaro MD LAB BLOOD ORDERABLES Final Result [facility] Department [place] [address] * US Ob Follow Up (08/24/2024 9:37 AM GAS APPLIANCE REPAIRER) Fetus# Fetus1 VIEWPOINT Estimated Weight 1,348 g&grams VIEWPOINT Placenta Details anterior VIEWPOINT Presentation Vertex; Maternal right- low VIEWPOINT Fetus# Fetus2 VIEWPOINT Estimated Weight 1,784 g&grams VIEWPOINT Placenta Details anterior VIEWPOINT Presentation Vertex; Maternal left- high (presenting) VIEWPOINT Anatomical Region Laterality Modality Abdomen N/A Ultrasound 08/24/2024 9:37 AM GAS APPLIANCE REPAIRER Impressions 08/24/2024 2:06 PM GAS APPLIANCE REPAIRER 1. Presumed Mo/Di twin IUP at 30w [...] Edite d * eGFR (08/22/2024 6:02 AM GAS APPLIANCE REPAIRER) eGFR >90 >=60 mL/min/1. 73 m2 Comment: [...] last reviewed 2021. Blood 08/22/2024 6:02 AM GAS APPLIANCE REPAIRER 08/22/2024 6:18 AM GAS APPLIANCE REPAIRER Anastasia Amaro MD LAB BLOOD ORDERABLES Final Result Performing Organization Address City/[facility]/ZIP Co de Phone Number [facility] Department of [employer] [place] [address] * (ABNORMAL) CBC without differential (08/22/2024 6:02 AM GAS APPLIANCE REPAIRER) WBC 12.2(H) 3.8 - 9.9 K/cumm Hgb 11.8(L) 11.9 - 15.5 g/dL [facility] Hct 34.4(L) 35.6 - 45.5 % [facility] Plt 277 150 - 400 K/cumm [facility] MPV 10.4 9.1 - 12.3 fL [facility] RBC 4.02 3.90 - 5.20 M/cumm [facility] MCV 85.6 81.3 - 96.4 fL [facility] MCH 29.4 27.1 - 33.3 pg [facility] MCHC 34.3 32.3 - 35.7 g/dL [facility] RDW CV 13.6 11.1 - 14.9 % [facility] RDW SD 42.4 35.7 - 48.1 fL [facility] NRBC abs 0.00 0.00 - 0.01 K/cumm [facility] Blood 08/22/2024 6:02 AM GAS APPLIANCE REPAIRER 08/22/2024 6:18 AM GAS APPLIANCE REPAIRER Anastasia Amaro MD LAB BLOOD ORDERABLES Final Result Performing Organization Address City/[facility]/ZIP Co de Phone Number [facility] Department [place] [address] * Type and screen (08/22/2024 6:02 AM GAS APPLIANCE REPAIRER) Abiodun, indirect Negative Comment:Patient has previous antibody history ABO Rh O Negative [facility] Blood 08/22/2024 6:02 AM GAS APPLIANCE REPAIRER 08/22/2024 6:24 AM GAS APPLIANCE REPAIRER Narrative [facility] - 08/22/2024 7:25 AM GAS APPLIANCE REPAIRER Has the patient had Daratumumab or Isatuximab in the past 6 months?->Unknown Anastasia Amaro MD LAB BLOOD BANK TEST ORDERA BLES Final Result [facility] Department [place] [address] * (ABNORMAL) Comprehensive metabolic panel (08/22/2024 6:02 AM GAS APPLIANCE REPAIRER) Sodium 138 135 - 145 mmol/L Potassium, pl 3.7 3.3 - 4.9 mmol/L [facility] Chloride 104 97 - 110 mmol/L [facility] CO2 23 22 - 32 mmol/L [facility] Anion gap 11 2 - 15 mmol/L [facility] BUN 7 6 - 25 mg/dL [facility] Creatinine 0.53(L) 0.60 - 1.10 mg/dL [facility] Glucose 72 70 - 199 mg/dL [facility] Comment: Interpretive Data Fasting glucose >/= 126 [...] 2022. Calcium 9.3 8.5 - 10.3 mg/dL [facility] Bilirubin, total 0.2 0.1 - 1.2 mg/dL [facility] Protein, pl 6.6 6.5 - 8.5 g/dL [facility] Albumin 3.2(L) 3.5 - 5.0 g/dL [facility] Alk phos 90 40 - 130 Units/L [facility] ALT 19 7 - 45 Units/L [facility] AST 18 10 - 45 Units/L [facility] Blood 08/22/2024 6:02 AM GAS APPLIANCE REPAIRER 08/22/2024 6:18 AM GAS APPLIANCE REPAIRER us Anastasia Amaro MD LAB BLOOD ORDERABLES Final Result [facility] Department [place] [address] * eGFR (08/19/2024 6:25 AM GAS APPLIANCE REPAIRER) eGFR >90 >=60 mL/min/1. 73 m2 Comment: [...] last reviewed 2021. Blood 08/19/2024 6:25 AM GAS APPLIANCE REPAIRER 08/19/2024 7:23 AM GAS APPLIANCE REPAIRER Anastasia Amaro MD LAB BLOOD ORDERABLES Final Result Performing Organization Address [facility] Co de Phone Number [facility] Department [place] [address] * (ABNORMAL) CBC without differential (08/19/2024 6:25 AM GAS APPLIANCE REPAIRER) Pathologist [facility] WBC 11.2(H) 3.8 - 9.9 K/cumm Hgb 11.3(L) 11.9 - 15.5 g/dL [facility] Hct 33.9(L) 35.6 - 45.5 % [facility] Plt 249 150 - 400 K/cumm [facility] MPV 10.6 9.1 - 12.3 fL [facility] RBC 3.89(L) 3.90 - 5.20 M/cumm [facility] MCV 87.1 81.3 - 96.4 fL [facility] MCH 29.0 27.1 - 33.3 pg [facility] MCHC 33.3 32.3 - 35.7 g/dL [facility] RDW CV 13.4 11.1 - 14.9 % [facility] RDW SD 42.5 35.7 - 48.1 fL [facility] NRBC abs 0.00 0.00 - 0.01 K/cumm [facility] Blood 08/19/2024 6:25 AM GAS APPLIANCE REPAIRER 08/19/2024 7:23 AM GAS APPLIANCE REPAIRER us Anastasia Amaro MD LAB BLOOD ORDERABLES Final Result [facility] Department [place] [address] * Type and screen (08/19/2024 6:25 AM GAS APPLIANCE REPAIRER) Pathologist [facility] Abiodun, indirect Negative ABO Rh O Negative [facility] Comment:Patient has previous antibody history Blood 08/19/2024 6:25 AM GAS APPLIANCE REPAIRER 08/19/2024 7:31 AM GAS APPLIANCE REPAIRER Narrative [facility] - 08/19/2024 8:22 AM GAS APPLIANCE REPAIRER Has the patient had Daratumumab or Isatuximab in the past 6 months?->Unknown Anastasia Amaro MD LAB BLOOD BANK TEST ORDERA BLES Final Result [facility] Department [place] [address] * (ABNORMAL) Comprehensive metabolic panel (08/19/2024 6:25 AM GAS APPLIANCE REPAIRER) Pathologist [facility] Sodium 138 135 - 145 mmol/L Potassium, pl 3.7 3.3 - 4.9 mmol/L [facility] Chloride 105 97 - 110 mmol/L [facility] CO2 23 22 - 32 mmol/L [facility] Anion gap 10 2 - 15 mmol/L [facility] BUN 7 6 - 25 mg/dL [facility] Creatinine 0.54(L) 0.60 - 1.10 mg/dL [facility] Glucose 68(L) 70 - 199 mg/dL [facility] Comment: Interpretive Data Fasting glucose >/= 126 [...] 2022. Calcium 9.3 8.5 - 10.3 mg/dL [facility] Bilirubin, total 0.2 0.1 - 1.2 mg/dL [facility] Protein, pl 6.3(L) 6.5 - 8.5 g/dL [facility] Albumin 3.0(L) 3.5 - 5.0 g/dL [facility] Alk phos 88 40 - 130 Units/L [facility] ALT 13 7 - 45 Units/L [facility] AST 18 10 - 45 Units/L [facility] Blood 08/19/2024 6:25 AM GAS APPLIANCE REPAIRER 08/19/2024 7:23 AM GAS APPLIANCE REPAIRER us Anastasia Amaro MD LAB BLOOD ORDERABLES Final Result [facility] Department [place] [address] * US Ob Limited (08/16/2024 8:35 AM GAS APPLIANCE REPAIRER) Fetus# Fetus1 VIEWPOINT Placenta Details anterior VIEWPOINT Presentation Transverse, maternal right-low VIEWPOINT Fetus# Fetus2 VIEWPOINT Placenta Details anterior VIEWPOINT Presentation Vertex; Maternal left- high VIEWPOINT Anatomical Region Laterality Modality Abdomen N/A Ultrasound 08/16/2024 8:36 AM GAS APPLIANCE REPAIRER Impressions 08/16/2024 2:23 PM GAS APPLIANCE REPAIRER Diamniotic (presumed MCDA) TIUP at 29w1d who is admitted for preE with severe features who presents for ??TTTS screen.Chorionicity was not fully assessed but [facility]. Anatomic surveys were also completed there. [...] previously determined [facility]FM[facility]. Anatomic surveys were also completed [...] Result * Antibody identification (08/16/2024 7:34 AM GAS APPLIANCE REPAIRER) Pathologist [facility] Antibody ID 1 Passive Anti-D Blood 08/16/2024 7:34 AM GAS APPLIANCE REPAIRER 08/16/2024 7:34 AM GAS APPLIANCE REPAIRER us Anastasia Amaro MD LAB BLOOD BANK TEST ORDERA BLES Final Result [facility] Department [place] [address] * eGFR (08/16/2024 6:15 AM GAS APPLIANCE REPAIRER) Pathologist [facility] eGFR >90 >=60 mL/min/1. 73 m2 Comment: [...] last reviewed 2021. Blood 08/16/2024 6:15 AM GAS APPLIANCE REPAIRER 08/16/2024 6:29 AM GAS APPLIANCE REPAIRER Anastasia Amaro MD LAB BLOOD ORDERABLES Final Result Performing Organization Address City/[facility]/ZIP Co de Phone Number [facility] Department of [employer] [place] [address] * Thyroid Function [place] (08/16/2024 6:15 AM GAS APPLIANCE REPAIRER) Pathologist [facility] TSH 3.83 0.30 - 4.20 mcIUnit/mL Blood 08/16/2024 6:15 AM GAS APPLIANCE REPAIRER 08/16/2024 6:29 AM GAS APPLIANCE REPAIRER us Anastasia Amaro MD LAB BLOOD ORDERABLES Final Result Performing Organization Address City/[facility]/ZIP Co de Phone Number [facility] Department [place] [address] * (ABNORMAL) CBC without differential (08/16/2024 6:15 AM GAS APPLIANCE REPAIRER) WBC 10.9(H) 3.8 - 9.9 K/cumm Hgb 11.6(L) 11.9 - 15.5 g/dL [facility] Hct 34.0(L) 35.6 - 45.5 % [facility] Plt 257 150 - 400 K/cumm [facility] MPV 10.4 9.1 - 12.3 fL [facility] RBC 3.95 3.90 - 5.20 M/cumm [facility] MCV 86.1 81.3 - 96.4 fL [facility] MCH 29.4 27.1 - 33.3 pg [facility] MCHC 34.1 32.3 - 35.7 g/dL [facility] RDW CV 13.3 11.1 - 14.9 % [facility] RDW SD 41.5 35.7 - 48.1 fL [facility] NRBC abs 0.00 0.00 - 0.01 K/cumm [facility] Blood 08/16/2024 6:15 AM GAS APPLIANCE REPAIRER 08/16/2024 6:30 AM GAS APPLIANCE REPAIRER Anastasia Amaro MD LAB BLOOD ORDERABLES Final Result Performing Organization Address City/[facility] Co de Phone Number [facility] Department [place] [address] * (ABNORMAL) Type and screen (08/16/2024 6:15 AM GAS APPLIANCE REPAIRER) [facility] Abiodun, indirect Positive(A) ABO Rh O Negative [facility] Blood 08/16/2024 6:15 AM GAS APPLIANCE REPAIRER 08/16/2024 6:25 AM GAS APPLIANCE REPAIRER Narrative [facility] - 08/16/2024 7:34 AM GAS APPLIANCE REPAIRER Has the patient had Daratumumab or Isatuximab in the past 6 months?->Unknown Anastasia Amaro MD LAB BLOOD BANK TEST ORDERA BLES Final Result [facility] Department [place] [address] * (ABNORMAL) Comprehensive metabolic panel (08/16/2024 6:15 AM GAS APPLIANCE REPAIRER) [facility] Sodium 139 135 - 145 mmol/L Potassium, pl 3.4 3.3 - 4.9 mmol/L [facility] Chloride 105 97 - 110 mmol/L [facility] CO2 23 22 - 32 mmol/L [facility] Anion gap 11 2 - 15 mmol/L [facility] BUN 8 6 - 25 mg/dL [facility] Creatinine 0.51(L) 0.60 - 1.10 mg/dL [facility] Glucose 72 70 - 199 mg/dL [facility] Comment: Interpretive Data Fasting glucose >/= 126 [...] 2022. Calcium 9.2 8.5 - 10.3 mg/dL [facility] Bilirubin, total 0.2 0.1 - 1.2 mg/dL [facility] Protein, pl 6.4(L) 6.5 - 8.5 g/dL [facility] Albumin 3.2(L) 3.5 - 5.0 g/dL [facility] Alk phos 86 40 - 130 Units/L [facility] ALT 16 7 - 45 Units/L [facility] AST 16 10 - 45 Units/L [facility] Blood 08/16/2024 6:15 AM GAS APPLIANCE REPAIRER 08/16/2024 6:29 AM GAS APPLIANCE REPAIRER us Anastasia Amaro MD LAB BLOOD ORDERABLES Final Result [facility] [place] [address] * POCT glucose (08/14/2024 3:06 PM GAS APPLIANCE REPAIRER) [facility] Signature Glucose, POC 103 70 - 199 mg/dL Comment:Post Meal Glucose comment 1 Post Meal [facility] Blood 08/14/2024 3:06 PM GAS APPLIANCE REPAIRER 08/14/2024 3:06 PM GAS APPLIANCE REPAIRER us Anastasia Amaro MD LAB POCT ORDERABLES - JELENA CE Final Result Performing Organization Address [facility] Co de Phone Number [facility] Department [place] [address] * ECG 12 lead (08/13/2024 9:02 AM GAS APPLIANCE REPAIRER) [facility] Ventricular Rate EKG/Min 122 BPM [facility] Atrial Rate [address] [facility] [place]-Interval (MSEC) [address] [facility] QRS-Interval (MSEC) [address] [facility] QT-Interval (MSEC) 324 ms [facility] QTc 461 ms [facility] P [place] [address] [facility] R Grandy 18 degrees [facility] T Grandy 29 degrees [facility] Diagnosis Sinus tachycardia Otherwise normal ECG When compared with ECG of 04-AUG-2024 17:45, No significant change was found Confirmed by SAMANTA KAPLAN M.D ([id number]) on 08/15/2024 12:21:02 PM [facility] 08/13/2024 9:02 AM GAS APPLIANCE REPAIRER 08/15/2024 12:21 PM GAS APPLIANCE REPAIRER Anastasia Amaro MD ECG ORDERABLES Final Resu lt Performing Organization Address [facility] de Phone Number [facility] * Antibody identification (08/13/2024 7:42 AM GAS APPLIANCE REPAIRER) [facility] Antibody ID 1 Passive Anti-D Blood 08/13/2024 7:42 AM GAS APPLIANCE REPAIRER 08/13/2024 7:42 AM GAS APPLIANCE REPAIRER us Anastasia Amaro MD LAB BLOOD BANK TEST ORDERA BLES Final Result Performing Organization Address [facility] Co de Phone Number [facility] Department [place] [address] * eGFR (08/13/2024 5:44 AM GAS APPLIANCE REPAIRER) [facility] eGFR >90 >=60 mL/min/1. 73 m2 Comment: [...] last reviewed 2021. Blood 08/13/2024 5:44 AM GAS APPLIANCE REPAIRER 08/13/2024 6:05 AM GAS APPLIANCE REPAIRER us Anastasia Amaro MD LAB BLOOD ORDERABLES Final Result Performing Organization Address City/State/ZIP Co ok Phone Number [facility] Department of Laboratories [place], [place] [id number] * HIV 1/2 Antibody plus p24 Antigen Blood (08/13/2024 5:44 AM GAS APPLIANCE REPAIRER) HIV 1/2 ab + p24 ag Nonreactive Nonreactive Comment:Nonreactive for HIV- 1 antigen and HIV-1/HIV-2 antibodies. No laboratory evidence of HIV infection. If acute HIV infection is suspected, consider testing for HIV-1 RNA. Current interpretive data was last revised on 22. Blood 08/13/2024 5:44 AM GAS APPLIANCE REPAIRER 08/13/2024 6:05 AM GAS APPLIANCE REPAIRER Anastasia Amaro MD LAB MICROBIOLOGY - GENERAL ORDERABLES Final Result Performing Organization Address [facility] Co de Phone Number [facility] [place] [address] * RPR Blood (08/13/2024 5:44 AM GAS APPLIANCE REPAIRER) [facility] RPR Nonreactive Nonreactive Blood 08/13/2024 5:44 AM GAS APPLIANCE REPAIRER 08/13/2024 6:05 AM GAS APPLIANCE REPAIRER Anastasia Amaro MD LAB MICROBIOLOGY - GENERAL ORDERABLES Final Result Performing Organization Address [facility] de Phone Number [facility] [place] [address] * (ABNORMAL) CBC without differential (08/13/2024 5:44 AM GAS APPLIANCE REPAIRER) [facility] WBC 12.4(H) 3.8 - 9.9 K/cumm Hgb 11.8(L) 11.9 - 15.5 g/dL [facility] Hct 34.4(L) 35.6 - 45.5 % [facility] Plt 295 150 - 400 K/cumm [facility] MPV 10.3 9.1 - 12.3 fL [facility] RBC 3.93 3.90 - 5.20 M/cumm [facility] MCV 87.5 81.3 - 96.4 fL [facility] MCH 30.0 27.1 - 33.3 pg [facility] MCHC 34.3 32.3 - 35.7 g/dL [facility] RDW CV 13.6 11.1 - 14.9 % [facility] RDW SD 43.5 35.7 - 48.1 fL [facility] NRBC abs 0.00 0.00 - 0.01 K/cumm [facility] Blood 08/13/2024 5:44 AM GAS APPLIANCE REPAIRER 08/13/2024 6:05 AM GAS APPLIANCE REPAIRER Anastasia Amaro MD LAB BLOOD ORDERABLES Final Result Performing Organization Address [facility] [place] [address] * (ABNORMAL) Type and screen (08/13/2024 5:44 AM GAS APPLIANCE REPAIRER) Pathologist [facility] ABO Rh O Negative Abiodun, indirect Positive(A) [facility] Blood 08/13/2024 5:44 AM GAS APPLIANCE REPAIRER 08/13/2024 6:19 AM GAS APPLIANCE REPAIRER Narrative [facility] - 08/13/2024 7:42 AM GAS APPLIANCE REPAIRER Has the patient had Daratumumab or Isatuximab in the past 6 months?->Unknown Anastasia Amaro MD LAB BLOOD BANK TEST ORDERA BLES Final Result Performing Organization Address [facility] de Phone Number [facility] [place] [address] * (ABNORMAL) Comprehensive metabolic panel (08/13/2024 5:44 AM GAS APPLIANCE REPAIRER) [facility] Sodium 137 135 - 145 mmol/L Potassium, pl 3.7 3.3 - 4.9 mmol/L [facility] Chloride 104 97 - 110 mmol/L [facility] CO2 22 22 - 32 mmol/L [facility] Anion gap 11 2 - 15 mmol/L [facility] BUN 8 6 - 25 mg/dL [facility] Creatinine 0.49(L) 0.60 - 1.10 mg/dL [facility] Glucose 74 70 - 199 mg/dL [facility] Comment: Interpretive Data Fasting glucose >/= 126 [...] 2022. Calcium 9.4 8.5 - 10.3 mg/dL [facility] Bilirubin, total 0.3 0.1 - 1.2 mg/dL [facility] Protein, pl 6.5 6.5 - 8.5 g/dL [facility] Albumin 3.3(L) 3.5 - 5.0 g/dL [facility] Alk phos 85 40 - 130 Units/L [facility] ALT 21 7 - 45 Units/L [facility] AST 19 10 - 45 Units/L [facility] Blood 08/13/2024 5:44 AM GAS APPLIANCE REPAIRER 08/13/2024 6:05 AM GAS APPLIANCE REPAIRER Anastasia Amaro MD LAB BLOOD ORDERABLES Final Result Performing Organization Address [facility] de Phone Number [facility] [place] [address] * GTT 50gm 1hr gestational screen (08/12/2024 11:29 AM GAS APPLIANCE REPAIRER) GTT 50g gest screen 106 <=140 mg/dL [...] on 2020. Blood 08/12/2024 11:2 9 AM GAS APPLIANCE REPAIRER 08/12/2024 11:41 AM GAS APPLIANCE REPAIRER Anastasia Amaro MD LAB BLOOD ORDERABLES Final Result Performing Organization Address [facility]/ZIP Co de Phone Number [facility] [employer] [place] [address] * Antibody identification (08/10/2024 7:02 AM GAS APPLIANCE REPAIRER) Antibody ID 1 Passive Anti-D Blood 08/10/2024 7:02 AM GAS APPLIANCE REPAIRER 08/10/2024 7:02 AM GAS APPLIANCE REPAIRER us Anastasia Amaro MD LAB BLOOD BANK TEST ORDERA BLES Final Result Performing Organization Address City/State/ZIP Co ok Phone Number BIA [facility] Department [place] [address] * eGFR (08/10/2024 4:49 AM GAS APPLIANCE REPAIRER) eGFR >90 >=60 mL/min/1. 73 m2 Comment: [...] last reviewed 2021. Blood 08/10/2024 4:49 AM GAS APPLIANCE REPAIRER 08/10/2024 5:31 AM GAS APPLIANCE REPAIRER Anastasia Amaro MD LAB BLOOD ORDERABLES Final Result Performing Organization Address City/[facility]/ZIP Co de Phone Number [facility] [place] [address] * (ABNORMAL) CBC without differential (08/10/2024 4:49 AM GAS APPLIANCE REPAIRER) WBC 11.7(H) 3.8 - 9.9 K/cumm Hgb 11.7(L) 11.9 - 15.5 g/dL [facility] Hct 35.0(L) 35.6 - 45.5 % [facility] Plt 293 150 - 400 K/cumm [facility] MPV 10.5 9.1 - 12.3 fL [facility] RBC 4.00 3.90 - 5.20 M/cumm [facility] MCV 87.5 81.3 - 96.4 fL [facility] MCH 29.3 27.1 - 33.3 pg [facility] MCHC 33.4 32.3 - 35.7 g/dL [facility] RDW CV 13.7 11.1 - 14.9 % [facility] RDW SD 43.8 35.7 - 48.1 fL [facility] NRBC abs 0.00 0.00 - 0.01 K/cumm [facility] Blood 08/10/2024 4:49 AM GAS APPLIANCE REPAIRER 08/10/2024 5:42 AM GAS APPLIANCE REPAIRER Anastasia Amaro MD LAB BLOOD ORDERABLES Final Result Performing Organization Address City/[facility]/ZIP Co de Phone Number [facility] Department [place] [address] * (ABNORMAL) Type and screen (08/10/2024 4:49 AM GAS APPLIANCE REPAIRER) Abiodun, indirect Positive(A) ABO Rh O Negative [facility] Blood 08/10/2024 4:49 AM GAS APPLIANCE REPAIRER 08/10/2024 6:04 AM GAS APPLIANCE REPAIRER Narrative [facility] - 08/10/2024 7:02 AM GAS APPLIANCE REPAIRER Has the patient had Daratumumab or Isatuximab in the past 6 months?->Unknown us Anastasia Amaro MD LAB BLOOD BANK TEST ORDERA BLES Final Result [facility] Department [place] [address] * (ABNORMAL) Comprehensive metabolic panel (08/10/2024 4:49 AM GAS APPLIANCE REPAIRER) Sodium 135 135 - 145 mmol/L Potassium, pl 3.5 3.3 - 4.9 mmol/L [facility] Chloride 102 97 - 110 mmol/L [facility] CO2 22 22 - 32 mmol/L [facility] Anion gap 11 2 - 15 mmol/L [facility] BUN 9 6 - 25 mg/dL [facility] Creatinine 0.51(L) 0.60 - 1.10 mg/dL [facility] Glucose 79 70 - 199 mg/dL [facility] Comment: Interpretive Data Fasting glucose >/= 126 [...] Calcium 9.2 8.5 - 10.3 mg/dL [facility] Bilirubin, total 0.2 0.1 - 1.2 mg/dL [facility] Protein, pl 6.6 6.5 - 8.5 g/dL [facility] Albumin 3.2(L) 3.5 - 5.0 g/dL [facility] Alk phos 85 40 - 130 Units/L [facility] ALT 22 7 - 45 Units/L [facility] AST 19 10 - 45 Units/L [facility] Blood 08/10/2024 4:49 AM GAS APPLIANCE REPAIRER 08/10/2024 5:31 AM GAS APPLIANCE REPAIRER us Anastasia Amaro MD LAB BLOOD ORDERABLES Final Result [facility] Department [place] [address] * US Ob 14 Weeks Or Over (08/09/2024 9:47 AM GAS APPLIANCE REPAIRER) Fetus# Fetus1 VIEWPOINT Placenta Details anterior VIEWPOINT Presentation Vertex; Maternal right- low VIEWPOINT Fetus# Fetus2 VIEWPOINT Placenta Details anterior VIEWPOINT Presentation Vertex; Maternal left- high VIEWPOINT Anatomical Region Laterality Modality Abdomen N/A Ultrasound 08/09/2024 9:50 AM GAS APPLIANCE REPAIRER Impressions 08/09/2024 11:52 AM GAS APPLIANCE REPAIRER 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 Chorionicity was not fully assessed but was previously determined to be monochorionic by the [facility] MFM practice. Anatomic surveys were also completed there. [...] waspreviously determined to be monochorionic by the [facility] MFM practice.Anatomic surveys were also completed there. A [...] Result * Antibody identification (08/07/2024 6:51 AM GAS APPLIANCE REPAIRER) Pathologist [facility] Antibody ID 1 Passive Anti-D Blood 08/07/2024 6:51 AM GAS APPLIANCE REPAIRER 08/07/2024 6:51 AM GAS APPLIANCE REPAIRER us Anastasia Amaro MD LAB BLOOD BANK TEST ORDERA BLES Final Result [facility] Department [place] [address] * eGFR (08/07/2024 5:00 AM GAS APPLIANCE REPAIRER) Pathologist [facility] eGFR >90 >=60 mL/min/1. 73 m2 Comment: [...] last reviewed 2021. Blood 08/07/2024 5:00 AM GAS APPLIANCE REPAIRER 08/07/2024 4:56 AM GAS APPLIANCE REPAIRER us Anastasia Amaro MD LAB BLOOD ORDERABLES Final Result [facility] Department [place] [address] * (ABNORMAL) CBC without differential (08/07/2024 5:00 AM GAS APPLIANCE REPAIRER) WBC 10.2(H) 3.8 - 9.9 K/cumm Hgb 12.0 11.9 - 15.5 g/dL [facility] Hct 35.0(L) 35.6 - 45.5 % [facility] Plt 261 150 - 400 K/cumm [facility] MPV 10.2 9.1 - 12.3 fL [facility] RBC 4.02 3.90 - 5.20 M/cumm [facility] MCV 87.1 81.3 - 96.4 fL [facility] MCH 29.9 27.1 - 33.3 pg [facility] MCHC 34.3 32.3 - 35.7 g/dL [facility] RDW CV 13.8 11.1 - 14.9 % [facility] RDW SD 44.4 35.7 - 48.1 fL [facility] NRBC abs 0.00 0.00 - 0.01 K/cumm [facility] Blood 08/07/2024 5:00 AM GAS APPLIANCE REPAIRER 08/07/2024 4:56 AM GAS APPLIANCE REPAIRER Anastasia Amaro MD LAB BLOOD ORDERABLES Final Result [facility] Department [place] [address] * (ABNORMAL) Comprehensive metabolic panel (08/07/2024 5:00 AM GAS APPLIANCE REPAIRER) Sodium 138 135 - 145 mmol/L Potassium, pl 3.6 3.3 - 4.9 mmol/L [facility] Chloride 105 97 - 110 mmol/L [facility] CO2 22 22 - 32 mmol/L [facility] Anion gap 11 2 - 15 mmol/L [facility] BUN 7 6 - 25 mg/dL [facility] Creatinine 0.47(L) 0.60 - 1.10 mg/dL [facility] Glucose 84 70 - 199 mg/dL [facility] Comment: Interpretive Data Fasting glucose >/= 126 [...] 2022. Calcium 9.3 8.5 - 10.3 mg/dL [facility] Bilirubin, total 0.2 0.1 - 1.2 mg/dL [facility] Protein, pl 6.3(L) 6.5 - 8.5 g/dL [facility] Albumin 3.1(L) 3.5 - 5.0 g/dL [facility] Alk phos 80 40 - 130 Units/L [facility] ALT 26 7 - 45 Units/L [facility] AST 16 10 - 45 Units/L [facility] Blood 08/07/2024 5:00 AM GAS APPLIANCE REPAIRER 08/07/2024 4:56 AM GAS APPLIANCE REPAIRER Anastasia Amaro MD LAB BLOOD ORDERABLES Final Result Performing Organization Address [facility] Co de Phone Number [facility] [place] [address] * (ABNORMAL) Type and screen (08/07/2024 4:45 AM GAS APPLIANCE REPAIRER) Abiodun, indirect Positive(A) ABO Rh O Negative [facility] Blood 08/07/2024 4:45 AM GAS APPLIANCE REPAIRER 08/07/2024 5:12 AM GAS APPLIANCE REPAIRER Narrative [facility] - 08/07/2024 6:51 AM GAS APPLIANCE REPAIRER Has the patient had Daratumumab or Isatuximab in the past 6 months?->Unknown Anastasia Amaro MD LAB BLOOD BANK TEST ORDERA BLES Final Result Performing Organization Address [facility] Co de Phone Number [facility] Department [place] [address] * CT Chest PE (CTA) W Contrast [...] by: Morgan Mendiola M.D. Anastasia Amaro MD IMG CT PROCEDURES Final Re sult * Respiratory pathogen panel Nasopharyngeal (08/04/2024 6:28 PM CDT) Pathologist [facility] Influenza A RNA Not Detected Not Detected Influenza B RNA Not Detected Not Detected [facility] RSV RNA Not Detected Not Detected [facility] COVID-19 RNA Not Detected Not Detected [facility] Coronavirus 229E RNA Not Detected Not Detected [facility] Coronavirus HKU1 RNA Not Detected Not Detected [facility] Coronavirus NL63 RNA Not Detected Not Detected [facility] Coronavirus OC43 RNA Not Detected Not Detected [facility] Adenovirus DNA Not Detected Not Detected [facility] Metapneumovirus RNA Not Detected Not Detected [facility] Rhinovirus/Enterov irus RNA Not Detected Not Detected [facility] Parainfluenza 1 RNA Not Detected Not Detected [facility] Parainfluenza 2 RNA Not Detected Not Detected [facility] Parainfluenza 3 RNA Not Detected Not Detected [facility] Parainfluenza 4 RNA Not Detected Not Detected [facility] B. pertussis DNA Not Detected Not Detected [facility] B. parapertussis DNA Not Detected Not Detected [facility] C. pneumoniae DNA Not Detected Not Detected [facility] M. pneumoniae DNA Not Detected Not Detected [facility] Nasopharyngeal 08/04/2024 6: 28 PM CDT 08/04/2024 6:48 PM CDT Narrative [facility] - 08/04/2024 8:16 PM CDT Is the Patient experiencing symptoms consistent with COVID?->No Surveillance testing for transplant patient?->No ??Interpretive Data The [employer] FilmArray Respiratory Panel (RP2.1) assay is a [...] assay has FDA clearance for testing of SHAREPOINT DEVELOPER swabs. ??The performance of additional specimen types has been assessed by the performing laboratory. ??The performance characteristics of this assay have been determined by [facility] Molecular Infectious Disease Laboratory. Current interpretive data was last revised on 22. us Anastasia Amaro MD LAB MICROBIOLOGY - GENERAL ORDERABLES Final Result Performing Organization Address [facility] Co de Phone Number BIA TODD [facility] Department [place] [address] * (ABNORMAL) D-dimer, quantitative (08/04/2024 6:28 PM [...] et al. Brit Med J. 2013;346:f2492. Festus DARBY et al. Annals Int Med. 2015;163:701-11. Current interpretive data was last revised on 2019. Blood 08/04/2024 6:2 8 PM CDT 08/04/2024 6:55 PM CDT Anastasia Amaro MD LAB BLOOD ORDERABLES Final Result Performing Organization Address [facility] Co de Phone Number [facility] Department [place] [address] * ECG 12 lead (08/04/2024 5:45 PM CDT) Ventricular Rate EKG/Min 131 BPM [facility] Atrial Rate [address] [facility] [place]-Interval (MSEC) [address] [facility] QRS-Interval (MSEC) 74 ms [facility] QT-Interval (MSEC) 300 ms [facility] QTc 443 ms [facility] P Grandy 53 degrees [facility] R Grandy 8 degrees [facility] T Grandy 33 degrees [facility] Diagnosis Sinus tachycardia Otherwise normal ECG Confirmed by Kaci Estrella MD ([id number]) on 08/08/2024 3:27:38 AM [facility] 08/04/2024 5:45 PM CDT 08/08/2024 3:27 AM GAS APPLIANCE REPAIRER Anastasia Amaro MD ECG ORDERABLES Final Resu lt Performing Organization Address [facility] Co de Phone Number [facility] * ECG 12 lead (08/04/2024 11:54 AM CDT) Ventricular Rate EKG/Min [address] [facility] Atrial Rate [address] [facility] [place]-Interval (MSEC) [address] [facility] QRS-Interval (MSEC) [address] [facility] QT-Interval (MSEC) 334 ms [facility] QTc 452 ms [facility] P Grandy [address] [facility] R Grandy [address] [facility] T Grandy 25 degrees [facility] Diagnosis Sinus tachycardia Otherwise normal ECG No previous ECGs available Confirmed by SAMANTA KAPLAN M.D ([id number]) on 08/04/2024 1:23:30 PM [facility] 08/04/2024 11:5 4 AM CDT 08/04/2024 1:23 PM CDT Anastasia Amaro MD ECG ORDERABLES Final Resu lt Performing Organization Address [facility] Co de Phone Number [facility] * Antibody identification (08/04/2024 6:12 AM CDT) Pathologist [facility] Antibody ID 1 Passive Anti-D Blood 08/04/2024 6:12 AM CDT 08/04/2024 6:12 AM CDT Anastasia Amaro MD LAB BLOOD BANK TEST ORDERA BLES Final Result Performing Organization Address City/[facility]/ZIP Co de Phone Number [facility] Department [place] [address] * Lupus Anticoagulant Panel plus Reflexes (08/04/2024 4:48 AM CDT) PT 11.6 9.7 - 13.0 sec INR 1.07 0.90 - 1.20 [facility] Comment: Interpretive data Oral anticoagulant therapeutic ranges: Venous thromboembolism prophylaxis or treatment: 2.0-3.0 CARDIOLOGY Standard range: 2.0-3.0 High-intensity range: 2.5-3.5 Refer to indication-specific guidelines for appropriate target ranges for prosthetic heart valve replacement. Current interpretive data was last revised on 2019. aPTT 29 28 - 38 sec [facility] Comment: Interpretive Data Heparin therapeutic range: 66.0 - 100.0 seconds. Range based on correlation with therapeutic heparin activity range of 0.3 - 0.7 Units/mL. Current interpretive data was last revised on 2023. DRVVT screen ratio 1.13 0.00 - 1.20 Ratio [facility] SCT Screen Ratio 1.01 0.00 - 1.16 Ratio [facility] Lupus anticoagulant, interp Negative [facility] Comment: Interpretive data ?? Lupus anticoagulants [...] anticoagulants other than heparin. ?? References: 1) Betty V, Herlinda A, Mariela JH, Orverónica TL, China M, De Americo PG. Update of the guidelines for lupus anticoagulant detection. J Thromb Haemost. 2009; 7:1302-4942. 2. Andrew Willson et al. International consensus statement on an update of the classification criteria for definite antiphospholipid syndrome (APS). J Thromb Haemost. 2006; 4:295-306. Current interpretive data was last revised on 2018 Blood 08/04/2024 4:48 AM CDT 08/04/2024 5:21 AM CDT Anastasia Amaro MD LAB BLOOD ORDERABLES Final Result [facility] Department [place] [address] * eGFR (08/04/2024 4:48 AM CDT) eGFR [...] MD LAB BLOOD ORDERABLES Final Result BIA [facility] Department [place] [address] * Beta 2 glycoprotein IgM Ab (08/04/2024 4:48 AM CDT) [facility] Beta-2 glycoprotein I, IgM 0.6 <=19.9 units/mL [...] factor. ??These results were obtained with the [employer] System. Beta-2 GP1 IgM values obtained with different manufacturers' assay methods may not be used interchangeably. Current interpretive data was last revised on 2017. Blood 08/04/2024 4:48 AM CDT 08/04/2024 5:02 AM CDT Anastasia Amaro MD LAB BLOOD ORDERABLES Final Result Performing Organization Address [facility] de Phone Number BIA [facility] Department of [employer] [place] [address] * Beta 2 glycoprotein IgG Ab (08/04/2024 4:48 AM CDT) Beta-2 glycoprotein I, IgG <1.4 <=19.9 units/mL Comment: Interpretive Data Negative: <20 U/mL Positive: > or = 20 U/mL ? Beta-2 glycoprotein 1 (Beta-2 GP1) antibodies are a more specific marker of thrombotic risk. It is expected that some samples will be ACL positive and Beta- 2 [id number]. In order to improve specificity, the International Congress on Antiphospholipid Antibodies recommends Beta-2 GP1 antibodies of IgG or IgM isotype ??(> the 99th percentile), obtained twice, at least 12 weeks apart, to support a diagnosis of antiphospholipid syndrome. The cutoff for this assay was developed from data based on the 99th percentile. These results were obtained with the [employer] 2200 System. Beta 2GP1 IgG values obtained with different manufacturers' assay methods may not be used interchangeably. Current interpretive data was last revised on 2017. Blood 08/04/2024 4:48 AM CDT 08/04/2024 5:02 AM CDT Anastasia Amaro MD LAB BLOOD ORDERABLES Final Result Performing Organization Address City/[facility] Co de Phone Number BIA Montes [facility] Department of [employer] [place] [address] * Cardiolipin antibody, IgG and IgM (08/04/2024 [...] [place]. These results were obtained with the [employer] 2[employer] System. Cardiolipin IgG values obtained with different manufacturers' assay methods may not be used interchangeably. Current interpretive data was last revised on 2017. Cardiolipin, IgM 0.7 <=19.9 MPL U/mL BIA TODD Comment: Interpretive Data Negative: <20 MPL U/mL [...] antibodies. ??These results were obtained with the [employer] 2200 System. Cardiolipin IgM values obtained with different manufacturers' assay methods may not be used interchangeably. Current interpretive data was last revised on 2017. Blood 08/04/2024 4:48 AM CDT 08/04/2024 5:02 AM CDT us Anastasia Amaro MD LAB BLOOD ORDERABLES Final Result Performing Organization Address City/[facility]/ZIP Co de Phone Number [facility] Department of [employer] [place] [address] * (ABNORMAL) CBC without differential (08/04/2024 4:48 AM CDT) Pathologist [facility] WBC 12.6(H) 3.8 - 9.9 K/cumm Hgb 12.4 11.9 - 15.5 g/dL [facility] Hct 36.5 35.6 - 45.5 % [facility] Plt 278 150 - 400 K/cumm [facility] MPV 10.2 9.1 - 12.3 fL [facility] RBC 4.17 3.90 - 5.20 M/cumm [facility] MCV 87.5 81.3 - 96.4 fL [facility] MCH 29.7 27.1 - 33.3 pg [facility] MCHC 34.0 32.3 - 35.7 g/dL [facility] RDW CV 14.1 11.1 - 14.9 % [facility] RDW SD 45.0 35.7 - 48.1 fL [facility] NRBC abs 0.00 0.00 - 0.01 K/cumm [facility] Blood 08/04/2024 4:48 AM CDT 08/04/2024 5:02 AM CDT us Anastasia Amaro MD LAB BLOOD ORDERABLES Final Result [facility] [employer] [place] [address] * (ABNORMAL) Type and screen (08/04/2024 4:48 AM CDT) Pathologist [facility] ABO Rh O Negative Abiodun, indirect Positive(A) [facility] Blood 08/04/2024 4:48 AM CDT 08/04/2024 4:59 AM CDT Narrative [facility] - 08/04/2024 6:12 AM CDT Has the patient had Daratumumab or Isatuximab in the past 6 months?->Unknown Anastasia Amaro MD LAB BLOOD BANK TEST ORDERA BLES Final Result [facility] Department [place] [address] * (ABNORMAL) Comprehensive metabolic panel (08/04/2024 4:48 AM CDT) [facility] Sodium 137 135 - 145 mmol/L Potassium, pl 3.8 3.3 - 4.9 mmol/L [facility] Chloride 104 97 - 110 mmol/L [facility] CO2 22 22 - 32 mmol/L [facility] Anion gap 11 2 - 15 mmol/L [facility] BUN 8 6 - 25 mg/dL [facility] Creatinine 0.44(L) 0.60 - 1.10 mg/dL [facility] Glucose 77 70 - 199 mg/dL [facility] Comment: Interpretive Data Fasting glucose >/= 126 [...] 2022. Calcium 9.2 8.5 - 10.3 mg/dL [facility] Bilirubin, total 0.3 0.1 - 1.2 mg/dL [facility] Protein, pl 6.6 6.5 - 8.5 g/dL [facility] Albumin 3.3(L) 3.5 - 5.0 g/dL [facility] Alk phos 82 40 - 130 Units/L [facility] ALT 23 7 - 45 Units/L [facility] AST 25 10 - 45 Units/L [facility] Blood 08/04/2024 4:48 AM CDT 08/04/2024 5:02 AM CDT us Anastasia Amaro MD LAB BLOOD ORDERABLES Final Result [facility] One [facility] Department [place] [address] * Echocardiogram (08/03/2024 4:07 PM CDT) Anatomical Region Laterality Modality Ultrasound 08/03/2024 1:22 PM CDT Narrative 08/03/2024 5:10 PM CDT ?[facility] ? Echo Report ?One [facility]'[address] ??[address] ?[phone] ? Patient Name: SUKI LEON ? Study Type: Echo ? Patient : 1995 ? Exam Date: ??08/03/2024 ? Age: ?29Y ? Exam Time: ??1:22:00 PM ? Referring MD: SIM HUSAIN ? Height: ? 65in ? Weight: ? 284lb ? BSA: ?2.3 m2 ? Sex: FEMALE ? BP: ? 139/83 ? System Dispatcher: May Quick ? Pat. Stat.: Inpatient ?Room: 6800 ? Account:[id number] ? Indications for Study:MONO-DI TWINS Procedures: COLORFLOW, [...] Normal. Septum: PFO. Defect sz. Moderate ??Shunt: Purnf-ii-Litq ?? Annular Dimensions: ??Ao Valve: 0.52 cm [...] Procedure Note Macie Vickers MD - 08/03/[address] [facility] Echo Report [address] [address] Patient Name: SUKI LEON Study Type: Echo Patient : 1995 Exam Date: 08/03/2024 Age: 29Y Exam Time: 1:22:00 PM Referring MD: SIM HUSAIN Height: 65in Weight: 284lb BSA: 2.3 m2 Sex: FEMALE BP: 139/83 System Dispatcher: May Quick Pat. Stat.: Inpatient Room: [facility] Account:[id number] Indications for Study:MONO-DI TWINS Procedures: COLORFLOW, DOPPLER [...] Normal. Septum: PFO. Defect sz. Moderate Shunt: Civfd-ih-Geym Annular Dimensions: Ao Valve: 0.52 cm (+0.79) [...] Signed 08/03/2024 05:10 PM Macie Vickers MD us Anastasia Amaro MD CV ECHO PROCEDURES Final R esult * Echocardiogram (08/03/2024 4:06 PM CDT) Anatomical Region Laterality Modality Ultrasound 08/03/2024 11:3 8 AM CDT Narrative 08/03/2024 4:30 PM CDT ?[facility] ? Echo Report ?[address], [place], [place] ??[address] ?[phone] ? Patient Name: SUKI LEON ? Study Type: Echo ? Patient : 1995 ? Exam Date: ??08/03/2024 ? Age: ?29Y ? Exam Time: ??11:38:00 AM ? Referring MD: SIM HUSAIN ? Height: ? 65in ? Weight: ? 284lb ? BSA: ?2.3 m2 ? Sex: FEMALE ? BP: ? 139/83 ? System Dispatcher: May Quick ? Pat. Stat.: Inpatient ?Room: 6800 ? Account:[id number] ? Indications for Study:AORTIC ECTASIA. 747.29, MONO-DI [...] Normal. Septum: PFO. Defect sz. Moderate ??Shunt: Gcwyp-hp-Ylak ?? Ventricles: D-looped ??LV size: Normal. LV [...] 138-146 ??bpm FINDINGS: Signed 08/03/2024 04:30 PM Macie Vickers MD Procedure Note Macie Vickers MD - 08/03/2024 [facility] Echo Report One [address] [address] Patient Name: SUKI LEON Study Type: Echo Patient : 1995 Exam Date: 08/03/2024 Age: 29Y Exam Time: 11:38:00 AM Referring MD: SIM HUSAIN Height: 65in Weight: 284lb BSA: 2.3 m2 Sex: FEMALE BP: 139/83 System Dispatcher: May Webber Stat.: Inpatient Room: [facility] Account:[id number] Indications for Study:AORTIC ECTASIA. 747.29, MONO-DI TWINS [...] Normal. Septum: PFO. Defect sz. Moderate Shunt: Ygnyr-is-Icoh Ventricles: D-looped LV size: Normal. LV function:Normal. [...] Signed 08/03/2024 04:30 PM Macie Vickers MD us Anastasia Amaro MD CV ECHO PROCEDURES Final [...] previously determined to be monochorionic by the [facility] practice. Anatomic surveys were also completed [...] was previously determined to bemonochorionic by the [facility] practice. Anatomic surveys were alsocompleted there. [...] 09 PM CDT 08/01/2024 4:24 PM CDT Narrative [facility] - 08/04/2024 11:19 AM CDT Testing performed by [facility] ([phone]). us Millicent Duran [employer] LAB MICROBIOLOGY - GENERAL ORDERABLES Final Result [facility] One [facility] Department [place] [address] * eGFR (08/01/2024 4:33 AM CDT) eGFR [...] Amaro MD LAB BLOOD ORDERABLES Final Result [facility] One [facility] Department [place] [address] * (ABNORMAL) CBC without differential (08/01/2024 4:33 AM CDT) WBC 10.6(H) 3.8 - 9.9 K/cumm Hgb 11.7(L) 11.9 - 15.5 g/dL [facility] Hct 35.1(L) 35.6 - 45.5 % [facility] Plt 269 150 - 400 K/cumm [facility] MPV 9.9 9.1 - 12.3 fL [facility] RBC 3.96 3.90 - 5.20 M/cumm [facility] MCV 88.6 81.3 - 96.4 fL [facility] MCH 29.5 27.1 - 33.3 pg [facility] MCHC 33.3 32.3 - 35.7 g/dL [facility] RDW CV 14.3 11.1 - 14.9 % [facility] RDW SD 46.5 35.7 - 48.1 fL [facility] NRBC abs 0.00 0.00 - 0.01 K/cumm [facility] Blood 08/01/2024 4:33 AM CDT 08/01/2024 4:48 AM CDT Anastasia Amaro MD LAB BLOOD ORDERABLES Final Result Performing Organization Address [facility] de Phone Number [facility] [employer] [place] [address] * Type and screen (08/01/2024 4:33 AM CDT) Pathologist [facility] Abiodun, indirect Negative ABO Rh O Negative [facility] Blood 08/01/2024 4:33 AM CDT 08/01/2024 5:12 AM CDT Narrative [facility] - 08/01/2024 6:16 AM CDT Has the patient had Daratumumab or Isatuximab in the past 6 months?->Unknown Anastasia Amaro MD LAB BLOOD BANK TEST ORDERA BLES Final Result Performing Organization Address [facility] de Phone Number [facility] [place] [place] [address] * (ABNORMAL) Comprehensive metabolic panel (08/01/2024 4:33 AM CDT) Pathologist [facility] Sodium 140 135 - 145 mmol/L Potassium, pl 3.8 3.3 - 4.9 mmol/L [facility] Chloride 106 97 - 110 mmol/L [facility] CO2 23 22 - 32 mmol/L [facility] Anion gap 11 2 - 15 mmol/L [facility] BUN 7 6 - 25 mg/dL [facility] Creatinine 0.46(L) 0.60 - 1.10 mg/dL [facility] Glucose 75 70 - 199 mg/dL [facility] Comment: Interpretive Data Fasting glucose >/= 126 [...] 2022. Calcium 9.2 8.5 - 10.3 mg/dL [facility] Bilirubin, total 0.2 0.1 - 1.2 mg/dL [facility] Protein, pl 6.1(L) 6.5 - 8.5 g/dL [facility] Albumin 3.1(L) 3.5 - 5.0 g/dL [facility] Alk phos 69 40 - 130 Units/L [facility] ALT 30 7 - 45 Units/L [facility] AST 28 10 - 45 Units/L [facility] Blood 08/01/2024 4:33 AM CDT 08/01/2024 4:48 AM CDT us Anastasia Amaro MD LAB BLOOD ORDERABLES Final Result [facility] One [facility] Department [place] [address] * (ABNORMAL) CBC without differential (07/31/2024 5:09 AM CDT) WBC 11.0(H) 3.8 - 9.9 K/cumm Hgb 10.8(L) 11.9 - 15.5 g/dL [facility] Hct 33.1(L) 35.6 - 45.5 % [facility] Plt 257 150 - 400 K/cumm [facility] MPV 10.3 9.1 - 12.3 fL [facility] RBC 3.71(L) 3.90 - 5.20 M/cumm [facility] MCV 89.2 81.3 - 96.4 fL [facility] MCH 29.1 27.1 - 33.3 pg [facility] MCHC 32.6 32.3 - 35.7 g/dL [facility] RDW CV 14.3 11.1 - 14.9 % [facility] RDW SD 46.8 35.7 - 48.1 fL [facility] NRBC abs 0.02(H) 0.00 - 0.01 K/cumm [facility] Blood 07/31/2024 5:09 AM CDT 07/31/2024 5:27 AM CDT Anastasia Amaro MD LAB BLOOD ORDERABLES Final Result Performing Organization Address [facility] de Phone Number [facility] [employer] [place] [address] * Magnesium (07/31/2024 5:07 AM CDT) [facility] Magnesium 1.9 1.4 - 2.5 mg/dL Blood 07/31/2024 5:07 AM CDT 07/31/2024 5:26 AM CDT Anastasia Amaro MD LAB BLOOD ORDERABLES Final Result Performing Organization Address [facility] de Phone Number [facility] Department of [employer] [place] [address] * eGFR (07/30/2024 4:49 AM CDT) eGFR [...] Amaro MD LAB BLOOD ORDERABLES Final Result [facility] One [facility] Department [place] [address] * (ABNORMAL) CBC without differential (07/30/2024 4:49 AM CDT) WBC 10.2(H) 3.8 - 9.9 K/cumm Hgb 10.9(L) 11.9 - 15.5 g/dL [facility] Hct 32.5(L) 35.6 - 45.5 % [facility] Plt 262 150 - 400 K/cumm [facility] MPV 10.0 9.1 - 12.3 fL [facility] RBC 3.65(L) 3.90 - 5.20 M/cumm [facility] MCV 89.0 81.3 - 96.4 fL [facility] MCH 29.9 27.1 - 33.3 pg [facility] MCHC 33.5 32.3 - 35.7 g/dL [facility] RDW CV 14.4 11.1 - 14.9 % [facility] RDW SD 46.5 35.7 - 48.1 fL [facility] NRBC abs 0.00 0.00 - 0.01 K/cumm [facility] Blood 07/30/2024 4:49 AM CDT 07/30/2024 5:02 AM CDT Anastasia Amaro MD LAB BLOOD ORDERABLES Final Result Performing Organization Address City/State/[facility] Co de Phone Number [facility] [place] [address] * Magnesium (07/30/2024 4:49 AM CDT) Pathologist [facility] Magnesium 2.3 1.4 - 2.5 mg/dL Blood 07/30/2024 4:49 AM CDT 07/30/2024 5:02 AM CDT Anastasia Amaro MD LAB BLOOD ORDERABLES Final Result Performing Organization Address [facility] de Phone Number [facility] [place] [address] * (ABNORMAL) Comprehensive metabolic panel (07/30/2024 4:49 AM CDT) Pathologist [facility] Sodium 140 135 - 145 mmol/L Potassium, pl 3.9 3.3 - 4.9 mmol/L [facility] Chloride 108 97 - 110 mmol/L [facility] CO2 22 22 - 32 mmol/L [facility] Anion gap 10 2 - 15 mmol/L [facility] BUN 5(L) 6 - 25 mg/dL [facility] Creatinine 0.46(L) 0.60 - 1.10 mg/dL [facility] Glucose 100 70 - 199 mg/dL [facility] Comment: Interpretive Data Fasting glucose >/= 126 [...] 2022. Calcium 8.6 8.5 - 10.3 mg/dL [facility] Bilirubin, total 0.3 0.1 - 1.2 mg/dL [facility] Protein, pl 6.2(L) 6.5 - 8.5 g/dL [facility] Albumin 3.2(L) 3.5 - 5.0 g/dL [facility] Alk phos 70 40 - 130 Units/L [facility] ALT 22 7 - 45 Units/L [facility] AST 23 10 - 45 Units/L [facility] Blood 07/30/2024 4:49 AM CDT 07/30/2024 5:02 AM CDT Anastasia Amaro MD LAB BLOOD ORDERABLES Final Result Performing Organization Address City/[facility]/ZIP Co de Phone Number [facility] Department of [employer] [place] [address] * Check Sample (07/29/2024 6:47 AM CDT) ABO Rh O Negative [facility] HCLL OTHER 07/29/2024 6:47 AM CDT 07/29/2024 7:10 AM CDT Anastasia Amaro MD LAB BLOOD ORDERABLES Final Result Performing Organization Address City/[facility] Co de Phone Number [facility] Department of [employer] [place] [address] [facility] * eGFR (07/29/2024 5:43 AM CDT) eGFR [...] ORDERABLES Final Result Performing Organization Address [facility] Co de Phone Number [facility] Department [place] [address] * HIV 1/2 Antibody plus p24 Antigen Blood (07/29/2024 5:43 AM CDT) HIV 1/2 ab + p24 ag Nonreactive [...] ORDERABLES Final Result Performing Organization Address [facility] Co de Phone Number [facility] [place] [address] * Protein / creatinine ratio, urine, random (07/29/2024 5:43 AM CDT) [facility] Protein, ur, quant 8.4 mg/dL Comment: Interpretive Data No reference range established. Current interpretive data was last revised 2019. Creatinine Ur 82.2 mg/dL [facility] Comment: Interpretive Data No reference range established. Current interpretive data was last revised 2019. Protein/creatinin e ratio 102.2 0.0 - 180.0 mg/g CR [facility] Urine 07/29/2024 5:43 AM CDT 07/29/2024 9:30 AM CDT Anastasia Amaro MD LAB URINE ORDERABLES Final Result Performing Organization Address [facility] Co de Phone Number [facility] Department [place] [address] * RPR Blood (07/29/2024 5:43 AM CDT) [facility] RPR Nonreactive Nonreactive Blood 07/29/2024 5:43 AM CDT 07/29/2024 6:36 AM CDT Anastasia Amaro MD LAB MICROBIOLOGY - GENERAL ORDERABLES Final Result Performing Organization Address [facility] de Phone Number [facility] [place] [address] * (ABNORMAL) CBC without differential (07/29/2024 5:43 AM CDT) [facility] WBC 9.6 3.8 - 9.9 K/cumm Hgb 11.2(L) 11.9 - 15.5 g/dL [facility] Hct 33.5(L) 35.6 - 45.5 % [facility] Plt 291 150 - 400 K/cumm [facility] MPV 10.4 9.1 - 12.3 fL [facility] RBC 3.83(L) 3.90 - 5.20 M/cumm [facility] MCV 87.5 81.3 - 96.4 fL [facility] MCH 29.2 27.1 - 33.3 pg [facility] MCHC 33.4 32.3 - 35.7 g/dL [facility] RDW CV 14.2 11.1 - 14.9 % [facility] RDW SD 45.5 35.7 - 48.1 fL [facility] NRBC abs 0.00 0.00 - 0.01 K/cumm [facility] Blood 07/29/2024 5:43 AM CDT 07/29/2024 6:35 AM CDT Anastasia Amaro MD LAB BLOOD ORDERABLES Final Result Performing Organization Address City/[facility]/ZIP Co de Phone Number [facility] Department of [employer] [place] [address] * Type and screen (07/29/2024 5:43 AM CDT) Abiodun, indirect Negative ABO Rh O Negative [facility] Blood 07/29/2024 5:43 AM CDT 07/29/2024 6:37 AM CDT Narrative [facility] - 07/29/2024 7:26 AM CDT Has the patient had Daratumumab or Isatuximab in the past 6 months?->Unknown us Anastasia Amaro MD LAB BLOOD BANK TEST ORDERA BLES Final Result [facility] [employer] [place] [address] * (ABNORMAL) Magnesium (07/29/2024 5:43 AM CDT) Magnesium 3.7(H) 1.4 - 2.5 mg/dL Blood 07/29/2024 5:43 AM CDT 07/29/2024 6:36 AM CDT us Anastasia Amaro MD LAB BLOOD ORDERABLES Final Result [facility] One [facility] Department [place] [address] * (ABNORMAL) Comprehensive metabolic panel (07/29/2024 5:43 AM CDT) Sodium 140 135 - 145 mmol/L Potassium, pl 3.4 3.3 - 4.9 mmol/L [facility] Chloride 103 97 - 110 mmol/L [facility] CO2 22 22 - 32 mmol/L [facility] Anion gap 15 2 - 15 mmol/L [facility] BUN 5(L) 6 - 25 mg/dL [facility] Creatinine 0.51(L) 0.60 - 1.10 mg/dL [facility] Glucose 92 70 - 199 mg/dL [facility] Comment: Interpretive Data Fasting glucose >/= 126 [...] 2022. Calcium 8.5 8.5 - 10.3 mg/dL [facility] Bilirubin, total 0.6 0.1 - 1.2 mg/dL [facility] Protein, pl 6.5 6.5 - 8.5 g/dL [facility] Albumin 3.7 3.5 - 5.0 g/dL [facility] Alk phos 74 40 - 130 Units/L [facility] ALT 20 7 - 45 Units/L [facility] AST 25 10 - 45 Units/L [facility] Blood 07/29/2024 5:43 AM CDT 07/29/2024 6:36 AM CDT us Anastasia Amaro MD LAB BLOOD ORDERABLES Final Result [facility] Department [place] [address] * eGFR (07/28/2024 10:30 PM CDT) eGFR [...] LAB BLOOD ORDERABLES F inal Result BIA [facility] ([place]) 1 [facility] Department [place] [address] * (ABNORMAL) Urinalysis reflex to microscopic and culture Urine, clean voided (07/28/2024 10:30 PM CDT) Color, ur Yellow Yellow Clarity, ur Clear Clear [facility] ([place]) Specific gravity, ur 1.015 1.003 - 1.030 [...] for uric acid stone formation. Source: [facility] [employer] Current Interpretive Data was last revised on 2017 Protein, ur ql Negative Negative [facility] ([place]) Glucose, ur ql Negative Negative [facility] ([place]) Ketones, ur 1+(A) Negative [facility] A ([place]) Bilirubin, ur Negative Negative [facility] ([place]) Blood, ur Negative Negative [facility] ([place]) Urobilinogen, ur <2.0 <2.0 mg/dL [facility] ([place]) Nitrite, ur Negative Negative [facility] ([place]) Leukocyte esterase, ur Negative Negative [facility] ([place]) UA reflex comment Reflex conditions for microscopic UA and culture not met. [facility] ([place]) Urine, clean voided 07/28/2024 10:30 PM CDT 07/28/2024 10:37 PM CDT us Kodak Sterling MD LAB MICROBIOLOGY - GEN ERAL ORDERABLES Final Result [facility] ([place]) 1 [facility] Department [place] [address] * Protein / creatinine ratio, urine, random (07/28/2024 10:30 PM CDT) Protein, ur, quant 13.9 mg/dL Comment: Interpretive Data No reference range established. Current interpretive data was last revised 2019. Creatinine Ur 113.7 mg/dL [facility] ([place]) Comment: Interpretive Data No reference range established. Current interpretive data was last revised 2019. Protein/creatinin e ratio 122.3 0.0 - 180.0 mg/g CR [facility] ([place]) Urine 07/28/2024 10:3 0 PM CDT 07/28/2024 10:37 PM CDT us Kodak Sterling MD LAB URINE ORDERABLES F inal Result [facility] ([place]) 1 [facility] Department [place] [address] * (ABNORMAL) CBC without differential (07/28/2024 10:30 PM CDT) WBC 9.3 3.8 - 9.9 K/cumm Hgb 11.4(L) 11.9 - 15.5 g/dL [facility] ([place]) Hct 33.6(L) 35.6 - 45.5 % [facility] ([place]) Plt 278 150 - 400 K/cumm [facility] ([place]) MPV 10.0 9.1 - 12.3 fL [facility] ([place]) RBC 3.85(L) 3.90 - 5.20 [...] NRBC abs 0.00 0.00 - 0.01 K/cumm [facility] ([place]) Blood 07/28/2024 10:3 0 PM CDT 07/28/2024 10:36 PM CDT Kodak Sterling MD LAB BLOOD ORDERABLES F inal Result [facility] [place] [address] [place] [address] * Uric acid (07/28/2024 10:30 PM CDT) Pathologist [facility] Uric acid 5.5 2.5 - 7.0 mg/dL Blood 07/28/2024 10:3 0 PM CDT 07/28/2024 10:36 PM CDT Kodak Sterling MD LAB BLOOD ORDERABLES F inal Result Performing Organization Address [facility] Co de Phone Number BIA [facility] ([place]) [address] [place] [address] * Lactate dehydrogenase (LD) (07/28/2024 10:30 PM CDT) Pathologist [facility] Lactate dehydrogenase (LDH) 163 100 - 250 Units/L Blood 07/28/2024 10:3 0 PM CDT 07/28/2024 10:36 PM CDT Kodak Sterling MD LAB BLOOD ORDERABLES F inal Result Performing Organization Address City/[facility]/ZIP Co de Phone Number [facility] ([place]) [address] [place] [phone] * (ABNORMAL) Comprehensive metabolic panel (07/28/2024 10:30 PM CDT) Sodium 135 135 - 145 mmol/L Potassium, pl 3.1(L) 3.3 - 4.9 mmol/L [facility] ([place]) Chloride 101 97 - 110 mmol/L [facility] ([place]) CO2 20(L) 22 - 32 mmol/L [facility] ([place]) Anion gap 14 2 - 15 mmol/L [facility] ([place]) BUN 5(L) 6 - 25 mg/dL [facility] ([place]) Creatinine 0.56(L) 0.60 - 1.10 mg/dL [facility] ([place]) Glucose 80 70 - 199 mg/dL [facility] ([place]) Comment: Interpretive Data Fasting glucose >/= [...] MD LAB BLOOD ORDERABLES F inal Result [facility] 1 [facility] Department [place] [address] * eGFR (07/27/2024 4:00 PM CDT) eGFR [...] MD LAB BLOOD ORDERABLES Final Re sult [facility] [address] Department of Laboratories [place], [place] [id number] * Differential, auto (07/27/2024 4:00 PM CDT) Neutrophil abs 5.9 1.5 - 6.5 K/cumm Imm gran abs 0.1 0.0 - 0.1 K/cumm [facility] Lymphocyte abs 2.0 0.8 - 3.3 K/cumm [facility] Monocyte abs 0.8 0.2 - 0.8 K/cumm [facility] Eosinophil abs 0.1 0.0 - 0.5 K/cumm [facility] Basophil abs 0.0 0.0 - 0.1 K/cumm [facility] Neutrophil pct 66.7 % [facility] Comment: Interpretive Data Percent cell count reference ranges are not reported, since discordance with absolute values may lead to misinterpretation of CBC data. Current Interpretive Data was last revised on 2018. Imm gran pct 0.8 % [facility] Comment: Interpretive Data Percent cell count reference ranges are not reported, since discordance with absolute values may lead to misinterpretation of CBC data. Current Interpretive Data was last revised on 2018. Lymphocyte pct 22.5 % [facility] Comment: Interpretive Data Percent cell count reference ranges are not reported, since discordance with absolute values may lead to misinterpretation of CBC data. Current Interpretive Data was last revised on 2018. Monocyte pct 8.4 % [facility] Comment: Interpretive Data Percent cell count reference ranges are not reported, since discordance with absolute values may lead to misinterpretation of CBC data. Current Interpretive Data was last revised on 2018. Eosinophil pct 1.4 % [facility] Comment: Interpretive Data Percent cell count reference ranges are not reported, since discordance with absolute values may lead to misinterpretation of CBC data. Current Interpretive Data was last revised on 2018. Basophil pct 0.2 % [facility] Comment: Interpretive Data Percent cell count reference ranges are not reported, since discordance with absolute values may lead to misinterpretation of CBC data. Current Interpretive Data was last revised on 2018. Blood 07/27/2024 4:00 PM CDT 07/27/2024 4:39 PM CDT Byron Tellez MD LAB BLOOD ORDERABLES Final Re sult [facility] [address] Department of Laboratories [place], [place] [id number] * CBC with auto differential (07/27/2024 4:00 PM CDT) WBC 8.9 3.8 - 9.9 K/cumm Hgb 13.0 11.9 - 15.5 g/dL [facility] Hct 37.9 35.6 - 45.5 % [facility] Plt 298 150 - 400 K/cumm [facility] MPV 10.0 9.1 - 12.3 fL [facility] RBC 4.25 3.90 - 5.20 M/cumm [facility] MCV 89.2 81.3 - 96.4 fL [facility] MCH 30.6 27.1 - 33.3 pg [facility] MCHC 34.3 32.3 - 35.7 g/dL [facility] RDW CV 14.1 11.1 - 14.9 % [facility] RDW SD 46.0 35.7 - 48.1 fL [facility] NRBC abs 0.00 0.00 - 0.01 K/cumm [facility] Blood 07/27/2024 4:00 PM CDT 07/27/2024 4:39 PM CDT Byron Tellez MD LAB BLOOD ORDERABLES Final Re sult Performing Organization Address [facility] Co de Phone Number [facility] [address] [address] * Protein / creatinine ratio, urine, random (07/27/2024 4:00 PM CDT) Protein, ur, quant 25.0 mg/dL Comment: Interpretive Data No reference range established. Current interpretive data was last revised 2019. Creatinine Ur 157.3 mg/dL [facility] Comment: Interpretive Data No reference range established. Current interpretive data was last revised 2019. Protein/creatinin e ratio 158.9 0.0 - 180.0 mg/g CR [facility] Urine 07/27/2024 4:00 PM CDT 07/27/2024 4:44 PM CDT Byron Tellez MD LAB URINE ORDERABLES Final Re sult Performing Organization Address City/[facility]/ZIP Co de Phone Number [facility] [address] Department of [employer] [place], [place] [id number] * Uric acid (07/27/2024 4:00 PM CDT) Pathologist [facility] Uric acid 4.9 2.5 - 7.0 mg/dL Blood 07/27/2024 4:00 PM CDT 07/27/2024 4:45 PM CDT us Byron Tellez MD LAB BLOOD ORDERABLES Final Re sult [facility] [address] Department [place] [address] * (ABNORMAL) Comprehensive metabolic panel (07/27/2024 4:00 PM CDT) Pathologist [facility] Sodium 137 135 - 145 mmol/L Potassium, pl 3.5 3.3 - 4.9 mmol/L [facility] Chloride 104 97 - 110 mmol/L [facility] CO2 21(L) 22 - 32 mmol/L [facility] Anion gap 12 2 - 15 mmol/L [facility] BUN 5(L) 6 - 25 mg/dL [facility] Creatinine 0.53(L) 0.60 - 1.10 mg/dL [facility] Glucose 75 70 - 199 mg/dL [facility] Comment: Interpretive Data Fasting glucose >/= 126 [...] 2022. Calcium 9.4 8.5 - 10.3 mg/dL [facility] Bilirubin, total 0.4 0.1 - 1.2 mg/dL [facility] Protein, pl 7.1 6.5 - 8.5 g/dL [facility] Albumin 3.7 3.5 - 5.0 g/dL [facility] Alk phos 72 40 - 130 Units/L [facility] ALT 20 7 - 45 Units/L [facility] AST 21 10 - 45 Units/L [facility] Blood 07/27/2024 4:00 PM CDT 07/27/2024 4:45 PM CDT Byron Tellez MD LAB BLOOD ORDERABLES Final Re sult [facility] [address] Department [place] [address] * (ABNORMAL) POCT urinalysis dipstick (07/27/2024 3:19 PM CDT) Pathologist [facility] Glucose, ur, POC Negative Negative MG/DL Bilirubin, ur, POC Small Negative, Small, Moderate, Large Ketones, ur, POC 15.(A) Negative [address], POC 1.020 1.003 - 1.030 Blood, ur, [...] Transvaginal (C) (07/27/2024 1:44 PM CDT) Pathologist [facility] Fetus# Fetus1 VIEWPOINT Estimated Weight 1,054 g&grams [...] - this was reported to Sonia Be NP as this is shorter than on prior [...] mm - this wasreported to Sonia Be NP as this is shorter than on prior imaging. Result [facility] Dia Mantilla MD IMG OB US PROCEDURE S Final Result * (ABNORMAL) POCT urinalysis dipstick (07/13/2024 2:45 PM CDT) Glucose, ur, POC Negative Negative MG/DL Bilirubin, ur, POC Negative Negative, Small, Moderate, Large Ketones, ur, POC Negative Negative [address], POC 1.025 1.003 - 1.030 Blood, ur, POC Negative Negative pH, ur, POC 6.0 5.0 - 8.0 Protein, ur, POC Negative Negative Urobilinogen, urine, POC 0.2 0.2 - 1.0 mg/dL Nitrite, ur, POC Negative Negative Leukocytes, ur, POC Moderate(A) Negative Lot Number [id number] Urine 07/13/2024 2:45 PM CDT Result [facility] Nancy Be NP POINT OF CARE TEST ORD ERABLES Final Result * (ABNORMAL) Vitamin D 25 hydroxy (07/12/2024 11:01 AM CDT) Vitamin D 25-OH 26(L) 30 - 80 ng/mL Blood 07/12/2024 11:0 1 AM CDT 07/12/2024 1:53 PM CDT Result [facility] Dia Mantilla MD LAB BLOOD ORDERABLE S Final Result [facility] ([facility]) [address] [facility] Department [place] [address] * (ABNORMAL) POCT OB urine short dip (glucose, protein, ketones) (07/12/2024 10:31 AM CDT) Pathologist [facility] Glucose, ur, POC Negative Negative MG/DL Protein, ur, POC Trace(A) Negative Ketones, ur, POC Negative Negative Lot Number [id number] Urine 07/12/2024 10:3 1 AM CDT Dia Mantilla MD POINT OF CARE TEST ORDERABLES Final Result * US Ob Limited (07/12/2024 10:20 AM CDT) [facility] Fetus# Fetus1 VIEWPOINT Placenta Details anterior VIEWPOINT [...] activity.2. Normal amniotic fluid in both sacs. Dia Mantilla MD IMG OB US PROCEDURE S Final Result * Hepatitis C antibody Blood (05/20/2024 2:47 PM CDT) Pathologist [facility] Hep C Ab Nonreactive Nonreactive Comment: Interpretive [...] 2:47 PM CDT 05/20/2024 3:12 PM CDT Dia Mantilla MD LAB MICROBIOLOGY - GENERAL ORDERABLES Final Result [facility] [address] Department [place] [address] from Last 3 Months or Most Recently Relevant to Health Maintenance [facility] [place] Advance Directives For more information, please contact: [phone] * Full Code (Latest Code Status on File) Date Activated Date Inactivated Comments 09/19/2024 4:34 PM 09/22/2024 3:32 PM * Full Code Date Activated Date Inactivated Comments 07/29/2024 3:05 AM 09/19/2024 4:34 PM Care Teams Security Field Supervisor Relationship Specialty Start Date End Date No, Physician PCP - General 02/25/24
--- OUTSIDE RECORDS SUMMARY | 2024-10-06 03:39 | XMS_ITS | Encounter Summary ---
Author Organization [facility] Healthcare Address [address] [place] [address] Care Team Providers Care Making Machine Operator Name Role Phone No, Physician Primary Care Provider [phone] Encounter Details Date Type Department Care Team (Late st Contact Info) Description 09/25/2024 Encounter [facility] [address] [place] [address] Social History Tobacco Use Types Packs/Day Years Used Date Smoking Tobacco: Never Smokeless Tobacco: Never [facility] Utilities Answer Date Recorded In the past 12 months has [facility] electric, gas, oil, or water company threatened [...] often do you attend chur ch or mormon services? Never 07/29/2024 Do you belong to any clubs o r organizations such as samaritan groups, unions, fraternal or athletic groups, or [...] staff should administer the PHQ-9) 0 07/28/2024 [facility] - Occupational Stress Questionnaire Answer Date Recorded [...] things needed for daily living? No 07/29/2024 Ayr Depression Scale Answer Date Recorded Ayr Depression Scale Total 8 07/12/2024 The thought [...] any time in the past 12 m ont, were you homeless or living in a intermediate (including now)? No 07/29/2024 Personal Safety Answer Date Recorded Have you ever been in or are you currently in a harmful physical or emotional relationship or is someone making you feel afraid or unsafe? Denies 07/29/2024 Comments No Sex and Gender Information Value Date Recorded Sex Assigned at Not on file Legal Sex Female 2:19 AM COUNTER CHECKER Gender Identity Not on file Sexual Orientation Not on file documented as of this encounter Miscellaneous Notes * Note - Ashley Anders RN - 09/25/2024 10:00 AM CST This note was copied from a baby's chart. Spoke with mother via phone. Received in report that mother contacted bedside RN overnight multipletimes re: the safety of her expressed milk. Mother reports that she, ... was using an old sponge to wash my pump parts and I am concerned about contamination of my milk. She stated that she bought a new sponge and is now using that instead. Reviewed cleaning and sterilization recommendation as well as hand hygiene recommendations with expressed breast milk. Recommended not using a sponge. Asked mother if there are any other reasons to be concerned about the use of her milk. Mother denies substance use or other concerns. Encouraged mother to contact if she has any other concerns. Mother asked about the use of donor milk and formula in the absence of maternal milk. She stated that she is okay with transitioning to formula supplementation when her expressed milk is unavailable. TER CHECKER documented in this encounter Plan of Treatment Not on file documented as of this encounter Visit Diagnoses Not on filedocumented in this encounter Care Teams Making Machine Operator Relationship Specialty Start Date End Date No, Physician PCP - General 02/25/24 documented as of this encounter
--- OUTSIDE RECORDS SUMMARY | 2024-10-06 03:40 | XMS_ITS | Encounter Summary ---
Author Organization [facility] Address [address] [place] [address] Care Team Providers Care Prospect Manager Name Role Phone No, Physician Primary Care Provider [phone] Reason for Visit * Auth/Cert (Routine) Specialty Diagnoses / Procedures Referred By Contac t Referred To Contact Diagnoses Preeclampsia, unspecified trimester Hypertension Procedures N/A Referral ID Status Reason Start Date Expiration Date Visits Re quested Visits Authorized [id number] 1 1 Encounter Details Date Type Department Care Team (Late st Contact Info) Description 09/19/2024 1:57 PM SPICE BLENDER Anesthesia Event [address] [id number] Sidra Ann MD [address] [place] [address] Rei Strange MD [address] [place] [address] Anesthesia Record Procedure Summary Procedure Name Responsible Anesthesiologist Anesthesia Start Time Anesthesia Stop Time SECTION (Abdomen) Sidra Ann MD 09/19/24 1357 09/19/24 1609 Events Date Time Event Comment 09/19/2024 1356 In Room 1357 An Start 1358 An Start Data 1411 An Block Induction The patie nt was reevaluated immediately before moderate or deep sedation and before anesthesia induction. 1420 Spinal Placed 1422 Epidural Placed 1426 Left Uterine Displacement 1433 Anesthesia Ready 1450 Proc Start 1458 Uterine Incision 1553 Proc Fin 1559 Quick Note Epidural remove d 1559 an stop data 1559 Epidural removed 1600 Out of Room 1609 Handoff to RN I completed my handoff to the receiving nurse during which we: 1. Patient identified 2. Responsible provider identified 3. Pertinent medical history reviewed 4. Procedure type and surgical course discussed 5. Intraoperative anesthetic management and any significant issues discussed 6. Expectations and concerns for postop period discussed 7. Questions solicited from receiving nurse 8. Patient disposition at the time of handoff: No value filed. 1609 An Stop Meds Name Total fentaNYL 15 mcg bupivacaine 0.75 %-dextrose 8.25 % PF 1. 8 mL phenylephrine infusion 4.92 mg oxytocin 6 Units oxytocin (PITOCIN) 30 Units in Lactated Ringer's (LR) 500 mL (0.06 Units/mL) infusion 10.79 Units ketorolac 30 mg ondansetron PF (ZOFRAN) 2 mg/mL injectio n 4 mg morphine (PF) 1 mg/ml 0.1 mg ceFAZolin (ANCEF) 3,000 mg/30 mL in ster ile water (premix) 3,000 mg 0 mg magnesium sulfate 20 g/500 mL in water i nfusion (premix) 4.07 g ceFAZolin 3,000 mg famotidine 20 mg metoclopramide 10 mg LR 750 mL * Agents No agents on file. * Blood No blood administrations on file. Lines, Drains, and Airways Type Details Placement Removal Wound 09/19/24; 1554; N; Incision; Pannus; Mid-line 09/19/24 1554 by Carlos Shukla RN Peripheral IV Placement Date: 09/04/24; Placement Time: 1027; Catheter Size: 20 G; Orientation: Posterior, Proximal, Right; Location: Forearm; Site Prep: Chlorhexidine; Technique: Anatomical landmarks; Insertion Attempts: 1; Patient Tolerance: Tolerated well; Removal Date: 09/19/24; Removal Time: 2149; Removal Reason: Drainage 09/04/24 1027 by Livia Meléndez RN [id number] by Blessing Dean RN Urethral Catheter Placement Date: 09/19/24; Placement Time: 1410; Inserted by: Edin BASHIR; Balloon Size: 10 mL; Urine Returned: Yes; Removal Date: 09/20/24; Removal Time: 1500 09/19/24 1410 by Venus Jesus RN 09/20/24 1500 by Arianne Lee RN Epidural Placement Date: 09/19/24; Placement Time: 1450 (created via procedure documentation); 09/20/24; 1919 (not present at transfer of care) 09/19/24 1450 by Abena Denton MD 09/20/24 1920 by Soumya Teixeira RN documented in this encounter Social History Tobacco Use Types Packs/Day Years Used Date Smoking Tobacco: Never Smokeless Tobacco: Never [facility] Utilities Answer Date Recorded In the past 12 months has e electric, gas, oil, or water company [...] often do you attend chur ch or mormonism services? Never 07/29/2024 Do you belong to any clubs o r organizations such as buddhist groups, unions, fraternal or athletic groups, or [...] staff should administer the PHQ-9) 0 07/28/2024 [facility] - Occupational Stress [...] things needed for daily living? No 07/29/2024 [place] Depression Scale Answer Date Recorded [place] Depression Scale Total 8 07/12/2024 The thought [...] [facility] the [facility], were you homeless or living in a fdc (including now)? No 07/29/2024 Personal Safety Answer Date Recorded Have you ever been in or are you currently in a harmful physical or emotional relationship or is someone making you feel afraid or unsafe? Denies 07/29/2024 Comments No Sex and Gender Information Value Date Recorded Sex Assigned at Not on file Legal Sex Female 2:19 AM SPICE BLENDER Gender Identity Not on file Sexual Orientation Not on file documented as of this encounter OR Notes * Anesthesia Postprocedure Evaluation - Rei Strange MD - 09/22/2024 7:28 AM CST Patient: Suki Leon Procedure Summary Date: 09/19/24 Room / Location: [facility] ROOM 1 / [facility] L&D OR Anesthesia Start: 1357 Anesthesia Stop: 1609 Procedure: SECTION (Abdomen) Diagnosis: (TIUP) Surgeons: Josefina Peter MD Responsible Provider: Sidra Ann MD Anesthesia Type: CSE ASA Status: 3 Anesthesia Type: CSE Last vitals BP 129/73 Pulse 90 Temp 36.6 ??C (97.9 ??F) (Oral) Resp 16 SpO2 98% Anesthesia Post Evaluation Patient location during evaluation: floor Patient participation: complete - patient participated Level of consciousness: fully awake Pain score: 3 Pain management: satisfactory to patient Airway patency: patent Cardiovascular status: acceptable Respiratory status: acceptable Hydration status: acceptable Pt is: normothermic Nausea/Vomiting status: none Comments: Patient denies headache, fevers, chills, rigors, nausea/vomiting, tingling/weakness/numbness, excessive pain/edema/drainage/erythema at needle puncture site. Patient taking PO, ambulating, urinating without Rainey catheter. Puncture site examined - no appreciable induration, erythema, swelling, drainage. Patient counseled on signs/symptoms of epidural abscess/hematoma and post dural puncture headache. Patient advised to seek immediate medical attention should she appreciate any of these. Patient voices understanding. No notable events documented. Cosigned by Servando Felipe MD at 09/22/2024 8:43 AM SPICE BLENDER E BLENDER E BLENDER * Anesthesia Procedure Notes - Abena Denton MD - 09/19/2024 2:45 PM CSTAssociated Order(s): Epidural Block Epidural Block Patient location: OR Reason for block: primary anesthetic Staff: Supervising provider: Sidra Ann MD Placed by: Resident: Apolinar Schmitt MD Procedure prep: Preprocedure checklist: patient identified, procedure contraindications assessed, procedure consentobtained, surgical consent, IV checked, risks, benefits and [...] patient tolerated procedure well with no complications E BLENDER * Anesthesia Preprocedure Evaluation - Sidra Ann MD - 09/19/2024 1:09 PM CST Images from the original note were not included. Anesthesia Evaluation Suki Leon is a 29 y.o. female SECTION (Abdomen) * No Diagnosis Codes entered * HISTORY HPI 29 y.o. at 34w0d a/f preeclampsia with severe features Presents for scheduled Past Medical History Information obtained from: patient and chart. Information obtained during: In Person Endocrine / Other + Obesity (BMI >30) Day of Surgery assessments + Possibility of assessed - known to be . PAT Summary and Plans Anesthesia plan discussed: spinal / epidural anesthesia. Additional comments: Discussed procedure and risks/benefits of labor epidural. Discussed risks of infection, bleeding, PDPH. Patient voices understanding and agrees with plan. All questions and concerns addressed. . Patient Active Problem List Diagnosis Date Noted 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 08/29/2024 Preeclampsia, unspecified trimester 07/29/2024 Rh negative state in antepartum period 06/20/2024 Maternal varicella, non-immune 05/23/2024 Long-term current use of antidepressant 04/15/2024 IBS (irritable bowel syndrome) 04/15/2024 Anxiety disorder 04/15/2024 BMI 40.0-44.9, adult ([facility]) 04/15/2024 Twin , unable to determine number of placenta and number of amniotic sacs, antepartum, unspecified trimester 03/28/2024 Past Medical History: Diagnosis Date Anxiety GERD (gastroesophageal reflux disease) IBS (irritable bowel syndrome) Migraine headache Obesity Past Surgical History: Procedure Laterality Date CHOLECYSTECTOMY OB History 1 Para Term AB Living SAB IAB Ectopic Multiple Live Births No Known Allergies Taking? Last Dose Start Date End Date Provider aspirin 81 mg chewable tablet -- 04/15/24 04/15/25 Dia Mantilla MD Take 1 tablet (81 mg total) by mouth daily cholecalciferol (VITAMIN D-3) 2000 unit tablet -- 07/12/24 -- Dia Mantilla MD Take 1 tablet (2,000 Units total) by mouth daily ibuprofen (ADVIL,MOTRIN) 400 mg tablet -- 07/13/24 -- Nancy Be NP Take 1 tablet by mouth every 6 hours every other day on odd calendar days metoclopramide (REGLAN) 10 mg tablet -- 05/31/24 -- Nancy Be NP Take 1 tablet (10 mg total) by mouth 4 (four) times a day as needed (nausea) no115/iron/folic acid ( 19 ORAL) -- -- -- Provider, MD Arianne progesterone (PROMETRIUM) 200 mg capsule -- 07/13/24 07/13/25 Nancy Be, KENTRELL Take 1 capsule (200 mg total) by mouth daily Current Facility-Administered Medications: acetaminophen (TYLENOL) tablet 1,000 mg, 1,000 mg, oral, Q6H PRN, 1,000 mg at 09/19/24 0350 bisacodyL (DULCOLAX) suppository 10 mg, 10 mg, rectal, Daily PRN carbamide peroxide (DEBROX) 6.5 % otic solution 10 drop, 10 drop, right ear, BID PRN, 10 drop at 09/09/24 1041 Carrier Fluids for Secondary Infusion - 0.9% Sodium Chloride, 30 mL, intravenous, PRN ceFAZolin (ANCEF) 3,000 mg/30 mL in sterile water (premix) 3,000 mg, 3,000 mg, intravenous, Once preop for OB ONLY diphenhydrAMINE (BENADRYL) tab/cap 25 mg, 25 mg, oral, BID PRN, 25 mg at 09/18/24 1252 doxylamine (UNISOM) tablet 25 mg, 25 mg, oral, Nightly PRN, 25 mg at 09/18/242019 [Held by Provider] enoxaparin (LOVENOX) syringe 40 mg, 40 mg, subcutaneous, Q12H ASHLEY, 40 mg at 09/18/24 0911 fluticasone propionate (FLONASE) 50 mcg/actuation nasal spray 1 spray, 1 spray, each nostril, Daily, 1 spray at 09/17/24 1016 guaiFENesin ER (MUCINEX) extended release tablet 600 mg, 600 mg, oral, BID PRN, 600 mg at 09/14/24 1245 hydrOXYzine (ATARAX) tablet 25 mg, 25 mg, oral, TID PRN labetaloL (NORMODYNE,TRANDATE) tablet 300 mg, 300 mg, oral, TID, 300 mg at 09/19/24 0853 metoclopramide (REGLAN) tablet 10 mg, 10 mg, oral, Q6H PRN, 10 mg at 09/18/24 2153 NIFEdipine (PROCARDIA XL/ADALAT CC) extended release tablet 120 mg, 120 mg, oral, Daily, 120 mg at 09/19/24 0853 PNV with [id number]-[id number]-FR tablet 1 tablet, 1 tablet/capsule, oral, Daily, 1 tablet at 09/18/24 0908 polyethylene glycol (MIRALAX) packet 17 g, 17 g, oral, BID, 17 g at 09/18/24 1721 progesterone (PROMETRIUM) capsule 200 mg, 200 mg, oral, Daily, 200 mg at 09/19/24 0853 senna-docusate (PERICOLACE) 8.6-50 mg per tablet 1 tablet, 1 tablet, oral, Nightly, 1 tablet at 09/18/242015 sodium chloride (OCEAN) 0.65 % nasal spray 1 spray, 1 spray, each nostril, Q1H PRN, 1 spray at 09/04/24 173 sodium chloride 0.9% bolus 1,000 mL, 1,000 mL, intravenous, TID PRN sodium chloride 0.9% flush 0.5-20 mL, 0.5-20 mL, intra-catheter, Q8H ASHLEY, 10 mL at 09/18/242015 sodium chloride 0.9% flush 0.5-20 mL, 0.5-20 mL, intra-catheter, PRN, 10 mL at 09/14/24 0926 sodium chloride 0.9% flush 0.5-20 mL, 0.5-20 mL, intra-catheter, Q8H ASHLEY (ALT) sodium chloride 0.9% flush 0.5-20 mL, 0.5-20 mL, intra-catheter, PRN Social History Tobacco Use Smoking Status Never Smokeless Tobacco Never Alcohol Use: Not At Risk (07/28/2024) AUDIT-C Frequency of Alcohol Consumption: Never Average Number of Drinks: Patient does not drink Frequency of Binge Drinking: Never Substance and Sexual Activity Drug Use Never Comment: 2 drink tolerence, no mj, pills or drugs Family History Problem Relation Age of Onset Breast cancer Mother 61 was told it is not hereditary Anxiety disorder Mother Ulcers Father Anxiety disorder Brother Heart attack Maternal Grandmother Deep vein thrombosis Maternal Grandmother Diabetes type II Maternal Grandfather Hypertension Paternal Grandmother Lung cancer Paternal Grandfather Heart failure Paternal Grandfather Hypertension Other Hypertension - (Added by TW Conv) Heart disease Other Reported Family History Of Heart Disease - (Added by TW Conv) Gallbladder disease Other Reported Prior Gallbladder Disease - (Added by TW Conv) Diabetes Other Diabetes Mellitus - (Added by TW Conv) Cancer Neg Hx no colon or verification clerk cmt 04/15/24 Vitals: 09/19/24 0857 09/19/24 0920 09/19/24 0925 BP: 141/95 Pulse: 93 98 107 Resp: 18 Temp: SpO2: 97% 98% 97% PT: No results found for requested labs within last 30 days. INR: No results found for requested labs within last 30 days. APTT: No results found for requested labs within last 30 days. Hgb A1C: No results found for requested labs within last 30 days. CBC RBC: 09/18/2024: 3.92 M/cumm RDW: No results found for requested labs within last 30 days. MCHC: 09/18/2024: 34.1 g/dL MCH: 09/18/2024: 29.6 pg MCV: 09/18/2024: 86.7 fL Hct: 09/18/2024: 34.0 % (L) Hgb: 09/18/2024: 11.6 g/dL (L) WBC: 09/18/2024: 10.0 K/cumm (H) MPV: 09/18/2024: 11.0 fL Platelets: 09/18/2024: 250 K/cumm RDW CV: 09/18/2024: 13.7 % RDW Sd: 09/18/2024: 43.1 fL BMP Glucose: 09/18/2024: 68 mg/dL (L) Calcium: 09/18/2024: 9.0 mg/dL Sodium: 09/18/2024: 134 mmol/L (L) Potassium: 09/18/2024: 3.8 mmol/L CO2: 09/18/2024: 23 mmol/L Chloride: 09/18/2024: 105 mmol/L BUN: 09/18/2024: 9 mg/dL Creatinine: 09/18/2024: 0.69 mg/dL STOP-Bang Total Score: 3 DOS Physical Exam Medical history, medications, and allergies reviewed. Attestation: This PAT evaluation 09/19/2024. Airway Exam: Mallampati: IV Cervical ROM: FROM TM distance: >4 Cardiovascular Exam: Rate: regular Rhythm: regular EENT Exam: trachea midline Dental Exam: Appears intact Skin Exam: Skin is warm. Current state: Patient's current state is cooperative and anxious. Additional comments: Gravid abdomen. No respiratory distress Anesthesia Plan ASA 3 My patient is approved for the Anesthesia Controlled Medication protocol when under care of a TRANSPORT ASSISTANT Planned anesthesia: CSE Postoperative Plan: Postoperative administration opioids intended. No postoperative mechanical ventilation intended. Patient's planned disposition post procedure is Floor. Informed Consent: Discussed plan with fellow and resident. Anesthesia plan and risks discussed with patient. Plan and Consent Comments: Discussed risks, benefits, alternatives to neuraxial anesthesia, including but not limited to PDPH,risk of prolonged or permanent numbness/weakness/paralysis, nausea, aspiration, bleeding, infection, possible need to convert to GETA. Pt voiced understanding and acceptance of risks and a desire to proceed with labor neuraxial anesthesia. Consent and Attending signature: I and/or my designee have discussed the anesthesia plan, benefits, possible alternatives, parental presence at time of induction (if indicated), and clinically relevant risks that may include dental injury, unintentional awareness, and/or other complications. The patient and/or parent/legal guardian understand, and agree to proceed. All questions answered. E BLENDER E BLENDER documented in this encounter Plan of Treatment Not on file documented as of this encounter Procedures Procedure Name Priority Date/Time Associated Diagnosis Comments ANESTHESIA EPIDURAL BLOCK Routine 09/19/2024 2:45 PM SPICE BLENDER documented in this encounter Results * Epidural Block (09/19/2024 2:45 PM SPICE BLENDER) Narrative Abena Denton MD - 09/19/2024 2:45 PM SPICE BLENDER Abena Denton MD ? 09/19/2024 ??2:50 PM [...] Sidra Ann MD ANESTHESIA ORDERABLES Final Result documented in this encounter Visit Diagnoses Not on filedocumented in this encounter Administered Medications Inactive Administered Medications - up to 3 most recent administrations Medication Order MAR Action Action Date Dose Rate Site BUPivacaine 0.75% (MARCAINE SPINAL) preservative free injection in dextrose intrathecal, As needed, Starting on Thu09/19/24 at 1420, Anesthesia Intra-op, Indications: Spinal AnesthesiaIndications:Spinal Anesthesia Given 09/19/2024 2:20 PM SPICE BLENDER 1.8 mL ceFAZolin (ANCEF) injection intravenous, Administer over 3 Minutes, As needed, Starting on Thu09/19/24 at 1428, Anesthesia Intra-op Given 09/19/2024 2:28 PM SPICE BLENDER 3,000 mg famotidine (PEPCID) injection intravenous, Administer over 2 Minutes, As needed, Starting on Thu09/19/24 at 1428, Anesthesia Intra-op Given 09/19/2024 2:28 PM SPICE BLENDER 20 mg fentaNYL (SUBLIMAZE) preservative free injection intrathecal, As needed, Starting on Thu09/19/24 at 1421, Anesthesia Intra-op Given 09/19/2024 2:21 PM SPICE BLENDER 15 mcg ketorolac (TORADOL) 30 mg/mL injection intravenous, As needed, Starting on Thu09/19/24 at 1530, Anesthesia Intra-op Given 09/19/2024 3:30 PM SPICE BLENDER 30 mg Lactated Ringer's (LR) infusion intravenous, Continuous PRN, Starting on Thu09/19/24 at 1358, Anesthesia Intra-op New Bag 09/19/2024 1:58 PM SPICE BLENDER magnesium sulfate 20 g/500 mL in water infusion (premix) 2 g/hr (50 mL/hr), intravenous, Continuous, Starting on Thu09/19/24 at 1345, Suspected magnesium toxicity - Stop if maternal respiratory rate less than 12 breaths/minute, apply oximeter and administer O2 at 8-12 LPM per tight face mask to maintain SaO2 95% or more and notify MD., Indications: Pre-EclampsiaIndications:Pre- Eclampsia New Bag 09/20/2024 8:49 AM SPICE BLENDER 2 g/hr 50 mL/hr Rate/Dose Verify 09/20/2024 6:25 AM SPICE BLENDER 2 g/hr 50 mL/h r Rate/Dose Verify 09/20/2024 4:25 AM SPICE BLENDER 2 g/hr 50 mL/h r metoclopramide (REGLAN) 5 mg/mL injection intravenous, Administer over 1 Minutes, As needed, Starting on Thu09/19/24 at 1432, Anesthesia Intra-op Given 09/19/2024 2:32 PM SPICE BLENDER 10 mg morphine preservative free injection intrathecal, Administer over 4 Minutes, As needed, Starting on Thu09/19/24 at 1421, Anesthesia Intra-op Given 09/19/2024 2:21 PM SPICE BLENDER 0.1 mg ondansetron (ZOFRAN) injection intravenous, Administer over 2 Minutes, As needed, Starting on Thu09/19/24 at 1428, Anesthesia Intra-op Given 09/19/2024 2:28 PM SPICE BLENDER 4 mg oxytocin (PITOCIN) 30 Units in Lactated Ringer's (LR) 500 mL (0.06 Units/mL) infusion intravenous, Continuous PRN, Starting on Thu09/19/24 at 1508, Anesthesia Intra-op Rate/Dose Change 09/19/2024 3:30 PM SPICE BLENDER 6 Units/hr 100 mL/hr Rate/Dose Change 09/19/2024 3:15 PM SPICE BLENDER 12 Units/hr 200 mL /hr New Bag 09/19/2024 3:08 PM SPICE BLENDER 59.94 Units/hr 999 mL/hr oxytocin (PITOCIN) injection intravenous, As needed, Starting on Thu09/19/24 at 1509, Anesthesia Intra-op Given 09/19/2024 3:16 PM SPICE BLENDER 3 Unit s Given 09/19/2024 3:09 PM SPICE BLENDER 3 Units phenylephrine (DAVIAN-SYNEPHRINE) 5 mg/50 mL (100 mcg/mL) in sodium chloride 0.9% (premix) intravenous, Continuous PRN, Starting on 09/19/24 at 1422, Anesthesia Intra-op Rate/Dose Change 09/19/2024 3:31 PM SPICE BLENDER 0.2 mcg/kg/min 15.456 mL/hr Rate/Dose Change 09/19/2024 3:20 PM SPICE BLENDER 0.4 mcg/kg/min 30. 912 mL/hr Rate/Dose Change 09/19/2024 2:43 PM SPICE BLENDER 0.5 mcg/kg/min 38. 64 mL/hr documented in this encounter Care Teams Prospect Manager Relationship Specialty Start Date End Date No, Physician PCP - General 02/25/24 documented as of this encounter
--- OUTSIDE RECORDS SUMMARY | 2024-10-06 03:40 | XMS_ITS | Encounter Summary ---
Author Organization [facility] Healthcare Address [address] [place] [address] Care Team Providers Care Plastic Finisher Name Role Phone No, Physician Primary Care Provider [phone] Reason for Visit * Auth/Cert (Routine) Specialty Diagnoses / Procedures Referred By Contac t Referred To Contact Diagnoses Preeclampsia, unspecified trimester Hypertension Procedures N/A Referral ID Status Reason Start Date Expiration Date Visits Re quested Visits Authorized [id number] 1 1 Encounter Details Date Type Department Care Team (Late st Contact Info) Description 07/29/2024 2:42 AM CDT - 09/22/2024 11:26 AM WIRE 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 Hospital Encounter [address] [id number] Anastasia Amaro MD [address] [place] [id number] [place] [address] [place] [address] [phone] [place] [address] [place] [address] [place] [id number] [place] [address] [place] [id number] Preeclampsia, unspecified trimester (Primary Dx); Twin , unable to determine number of placenta and number of amniotic sacs, antepartum, unspecified trimester [O30.099]; 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 Discharge Disposition: Discharge to home or self care Social History Tobacco Use Types Packs/Day Years Used Date Smoking Tobacco: Never Smokeless Tobacco: Never [facility] Utilities Answer Date Recorded In the past 12 months has e [employer], gas, oil, or water company threatened to [...] often do you attend chur ch or jain services? Never 07/29/2024 Do you belong to any clubs o r organizations such as jewish groups, unions, fraternal or athletic groups, or [...] staff should administer the PHQ-9) 0 07/28/2024 [facility] - Occupational Stress Questionnaire Answer Date [...] things needed for daily living? No 07/29/2024 Colton Depression Scale Answer Date Recorded Colton Depression Scale Total 8 07/12/2024 The thought [...] any time in the past 12 [facility], were you homeless or living in a custodial (including now)? No 07/29/2024 Personal Safety Answer Date Recorded Have you ever been in or are you currently in a harmful physical or emotional relationship or is someone making you feel afraid or unsafe? Denies 07/29/2024 Comments No Sex and Gender Information Value Date Recorded Sex Assigned at Not on file Legal Sex Female 2:19 AM WIRE 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 Gender Identity Not on file Sexual Orientation Not on file documented as of this encounter Last Filed Vital Signs Vital Sign Reading Time Taken Comments Blood Pressure 138/84 09/22/2024 8:36 AM WIRE 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 Pulse 90 09/22/2024 8:36 AM WIRE 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 Temperature 36.6 ??C (97.9 ??F) 09/22/2024 8:36 AM CS T Respiratory Rate 17 09/22/2024 8:36 AM WIRE 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 Oxygen Saturation 99% 09/22/2024 8:36 AM WIRE 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 Inhaled Oxygen Concentration - - Weight 128.8 kg (284 lb) 08/04/2024 8:32 PM CDT Height 165.1 cm (5' 5 ) 08/04/2024 8:32 PM CDT Body Mass Index 47.26 08/04/2024 8:32 PM CDT documented in this encounter Discharge Summaries * Willie Kelly MD - 09/22/2024 9:14 AM CST Inpatient Discharge Summary Admitting Provider: Anastasia Amaro MD Discharge Provider: Sara Eng MD Admission Date: 07/29/2024 Discharge Date: 09/22/2024 Delivery Date/Time: 09/19/2024t 2:59 PM Delivery method: Regino Leon [[id number]] [[id number]] Morales Leon [[id number]] [[id number]] Primary Discharge Diagnosis: Intrauterine at 34w0d, delivered Secondary Discharge Diagnosis: Medical Conditions Diagnosis Long-term current use of antidepressant IBS (irritable bowel syndrome) Anxiety disorder BMI 40.0-44.9, adult (HCC) Maternal varicella, non-immune Rh negative state in antepartum period Preeclampsia, unspecified trimester 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 care following delivery Procedures Performed: Low transverse Other Treatments: Magnesium sulfate therapy: Yes Blood transfusion: No Iron transfusion: No Hospital Course: ANTEPARTUM HOSPITAL COURSE: Suki Abena Edward is a 29 y.o. admitted at 26w4d is being managed for preeclampsia with severe features (SF). #PreE w/SF She was diagnosed based on newly elevated blood pressures that required intravenous medications prior to her transfer. Upon presentation to an outside hospital, sustained severe blood pressures necessitated Labetalol 20mg administration and a magnesium sulfate bolus was given before transfer. On adm ission, her blood pressures were within a normotensive to mild range and her labs were stable (CBC Hgb 11.4 Plt 278 /CMP Cr 0.56 AST 21 ALT 19/UPC 0.122). Blood pressures were closely monitoring withuptitration of antihypertensives. The patient was stable on Nifedipine XL 120 mg and Labetalol 300 mg three times daily. Monitoring includes CBC, CMP, and T&S every 72 hours, and the planned delivery is scheduled for 34 weeks, with a section set for September 19 at 13:30. #sinus tachycardia, intermittent #suspected reflex tachycardia from nifedipine She has experienced intermittent sinus tachycardia, suspected to be a reflex from Nifedipine, with an episode reaching 130-140 bpm on August 04. She was asymptomatic with a negative exam. Her D-dimer was [address] for pulmonary embolism returned negative. #Chronic headaches Additionally, the patient has a history of chronic headaches, described as similar to prior episodes, which respond to acetaminophen and reglan. She previously used nortriptyline before , and there is a plan to consider magnesium and riboflavin if headaches persist. #ear ache/fullness, improving An earache and fullness, which have been improving with treatment, were noted with no signs of infection upon examination. 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 Additionally, Twin B has mild left-sided ventriculomegaly. Both findings have prompted consultations with relevant pediatric specialists. #Depression/ Anxiety The patient???s medical history includes depression and anxiety, previously managed with SSRIs, butshe has maintained a stable mood without medication during this . #MO She has obesity, with a BMI of 47. #MWB #VZV equivocal #Rh negative - PNL: Rh Neg/Ab Neg/HIV NR/Rub Imm/RPR NR/HepB NR/GC/CT Not obtained/VZV Equiv - 1 hr GTT early 82 - 1hr GTT 106 - 3T HIV/RPR NR/NR - s/p flu vax 07/12, Tdap 08/09, RSV 09/05 - Rhogam 08/01 - GBS neg 09/03 - MOD: pCS on 09/19 - MOF: breast - MOC: nexplanon - AC: BID ppx lovenox L&D and PP Hospital course: Suki Leon is a 29 y.o. female at 34w0d weeks gestation, dated by 1st trimester ultrasound who presented to L&D for primary section. After obtaining the appropriate operative consents, the patient was taken to the operating room, where CSe was placed and confirmed to be adequate. Her was complicated by PreE w/SF, dep/anxiety, chronic headaches, aortic dilation of fetus B, lateral ventriculomegaly of twin B, MO, VZV equivical, Rh neg, and Shay TIUP . She underwent a primary Low Transverse Section via Pfannensteil. She delivered a viable pair of twin boys. The first had Apgars of 9 and 9, the second 8 and 9 at one and five minutes of life each, respectively. Delivery was uncomplicated. See operative report for full details. The patient was transferred to . Her course was uncomplicated. Prior to discharge, her pain was well controlled, she was voiding, passing gas, ambulating, and meeting all milestones. The patient was consented and registered for remote blood pressure monitoring. A blood pressure cuff has been given to the patient. She has confirmed receipt of test message. Her AVS was updated withdischarge instructions on use of the remote blood pressure monitoring system. She will follow up with her primary OB team ([facility]). Symptoms of preeclampsia have been reviewed. # Mother/Baby: The patient has chosen to breastfeed her infant and has chosen implant for contraception. Nexplanon placed 09/20 Discharge Details Physical Exam at Discharge: Discharge Condition: Stable Pulse: 90 Resp: 17 BP: 138/84 Temp: 36.6 ??C (97.9 ??F) Weight: 128.8 kg (284 lb) Problem Care Following Delivery # ID: Afebrile. [...] Blood pressures well controlled on N120XL and A474TPS. CBC/CMP WNL, UPC 0.1.Enrolled in remote blood pressure monitoring. Received text. [...] # Disposition: Follow up task sent to [facility] scheduling pool for appointments in 2 and 6 weeks. They are enrolled in remote blood pressure monitoring for their BP check. Desires discharge home today. Service Coverage These phones are service phones and carried 27/04 in house: R1 (first call) [phone] R1 alt (second call) [phone] R4 (Chief) [phone] See full physical exam from progress note on day of discharge. Lab Results Component Value Date HCT 28.4 (L) 09/20/2024 ABORH O Negative 09/20/2024 RUBELIGG Reactive 05/20/2024 [x] Iron prescribed on discharge [x] Post Rhogam given [x] Post Varivax ordered, given see MAR for administration record Immunization History Administered Date(s) Administered Influenza, Trivalent, Preservative Free, Intramuscular 07/12/2024 Moderna SARS-CoV-2 Monovalent Vaccination (12+ YRS) 12/07/2020, 01/04/2021 RSV, Bivalent, Protein Subunit Rsvpref, Diluent (Abrysvo) 09/05/2024 Tdap 08/09/2024 Varicella 09/21/2024 Discharge Disposition: Discharge to a critical access hospital Code Status at Discharge: Full Discharge Instructions: SEE AVS Other Instructions RSV Vaccine, Bivalent, RSVpreF (ABRYSVO) Discharge Medications: Your medication list START taking these medications acetaminophen 500 mg capsule 1,000 mg, oral, Every 6 hours PRN cyclobenzaprine 5 mg tablet 5 mg, oral, 2 times daily PRN Commonly known as: FLEXERIL ferrous sulfate 325 mg (65 mg of elemental iron) tablet 325 mg, oral, Daily with breakfast labetaloL 300 mg tablet 300 mg, oral, 3 times daily Commonly known as: NORMODYNE,TRANDATE lidocaine 5 % 2 patches, transdermal, Every 24 hours, Remove & discard patch within 12 hours or as directed by MD. Doctor's comments: Okay to dispense 5% Commonly known as: LIDODERM NIFEdipine 60 mg 24 hr tablet 120 mg, oral, Daily Commonly known as: PROCARDIA XL/ADALAT CC Start taking on: September 23, 2024 oxyCODONE 5 mg immediate release tablet 5 mg, oral, Every 4 hours PRN Commonly known as: ROXICODONE polyethylene glycol 17 gram/dose bulk powder 17 g, oral, Daily PRN Commonly known as: MIRALAX CHANGE how you take these medications ibuprofen 600 mg tablet 600 mg, oral, Every 6 hours PRN Commonly known as: ADVIL,MOTRIN What changed: medication strength how much to take how to take this when to take this reasons to take this additional instructions CONTINUE taking these medications 19 ORAL oral STOP taking these medications aspirin 81 mg chewable tablet cholecalciferol 2000 unit tablet Commonly known as: VITAMIN D-3 metoclopramide 10 mg tablet Commonly known as: REGLAN progesterone 200 mg capsule Commonly known as: PROMETRIUM Outpatient Follow-Up: 1-2 weeks and 4-6 Weeks Future Appointments Date Time Provider Department Center 10/13/2024 1:40 PM MFM CHILD SUPPORT OFFICER [facility] 7 OB [facility] Tena 09/22/24 I reviewed and edited the above for accuracy & clarity Willie Kelly MD 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 documented in this encounter Discharge Instructions * Discharge Instructions* Ana Gauthier NP - 09/20/2024 10:10 AM WIRE 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 Images from the original note were not included. Discharge Instructions - Section For any concerns call our OB communication center at [phone] 27/04. * If you have SEVERE illness including persistent shortness of breath, high fever not responsive totylenol, or nausea and vomiting preventing you from adequately orally hydrating, then call your doctor or go to the ER. Call Your Doctor If: * You have a fever of 100.4 degrees or higher. * You have vaginal bleeding more than your normal menstrual period. * You are passing large blood clots (larger than an egg). * You have a strong foul odor coming from your vagina. * You have burning, pain or difficulty urinating. * Your incision has redness, drainage, bad odor, or if the incision separates. * You have nausea, vomiting or increased abdominal pain. * You have redness or pain in your calves, legs or inner thighs. * You have red, swollen painful breasts. * You have other questions or concerns. * You have a headache, difficulty breathing, pain in your upper abdomen, or changes in your vision. * You have decreased urine output. * Your level of consciousness changes. * If you have a blood pressure cuff at home, check your blood pressure once a day and write it down. Call your doctor if your blood pressure is greater than 160 (top number) or 110 (bottom number). Diet: * Follow your regular diet. * Maintain liquid intake of 8 -10 glasses per day. * For constipation - drink prune juice or take stool softener medication ordered by your doctor. Eat foods with fiber (examples - raisins, prunes, washed raw vegetables, whole wheat bread, and bran). Activity: * Do not put anything in your vagina for 6 weeks. NO douching, tampons or sexual intercourse. * Weakness and fatigue are common. * Limit activities and visitors and increase as energy levels return. Rest as often as possible. * Lift nothing heavier than 10 pounds for 2 weeks. * No driving for 1-2 weeks or while taking narcotics. * If you are not , milk will come in between the 3rd and 4th day . Wear tight support bra and use ice packs to relieve discomfort. Care Instructions: * You may shower or shampoo your hair. You may take a full bath about 2 weeks after delivery. * Keep incision clean and dry. Every day, gently wash your incision with mild soap and warm water and pat dry. * If you have steri strips, you may still shower. The steri strips may fall of on their own, but ifthey do not, remove them after 5 days. * If you have tiffany, please make an appointment with your doctor to have them removed in 10 days. Contraception: For more information on available methods of preventing , please visit [email or web address]/ IMPLANT PLACED IN-HOSPITAL: Your contraceptive implant (Nexplanon) was placed while you were in the hospital. It works right away to prevent . Nexplanon is designed to last 3 years. It is common to have changes in yourmenstrual periods with Nexplanon, such as no periods, frequent bleeding, or unpredictable bleeding. Feeding: : Follow unrestricted . Feed your baby based on baby's hunger cues (or atleast 8-12 feedings per 24 hours). Do NOT supplement unless instructed by Warehouse Supervisor. Call your Warehouse Supervisor if your baby has poor eating habits (examples: feedings decrease, no feedings in 6 hours, or spits up more than ?? of their feeding for 2 consecutive feedings). Once your baby is 5-6 days old, you should expect at least 5 wet diapers and 3 soiled diapers per day. Outpatient Follow Up: Every patient needs a visit. We are currently scheduling some in person and some telemedicine visits for your visits. If you do not hear from your primary OB to set up your telephone or in person visit, please call your primary OB to set up a telephone or in person visit. Thank you for understanding and remember to wash your hands and avoid anyone with fevers or cough. Stay at home as much as possible and practice social distancing. If you yourself develop fever >100.4F, a new cough, or shortness of breath please call our centralized OB communication center at [phone]. Do not come to the hospital or clinic until you speak with a provider. Contact Information for your primary [facility]: [facility] - [address] [place] [address] Call to schedule an appointment to be seenwithin 2 weeks of delivery. No future appointments. Blood Pressure Monitoring: If you are enrolled in home blood pressure monitoring please text your blood pressures when prompted upon hospital discharge. How to use a home blood pressure monitor: Be still. Don't smoke, drink caffeinated beverages or exercise within 30 minutes before measuring your blood pressure. Sit for at least 5 minutes before taking your blood pressure. Sit correctly. Sit with your back straight and supported (on a dining chair, rather than a sofa). Your feet should be flat on the floor and your legs should not be crossed. Your arm should be supported on a flat surface (such as a table) with the upper arm at heart level. Make sure the middle of the cuff is placed directly above the bend of the elbow. Check your monitor's instructions for an illustration or have your healthcare provider show you how. If at ANY time you have symptoms of chest pain, shortness of breath, vision changes, numbness/weakness, difficulty speaking, headache, or if something just doesn't feel right, call our OB communication center at [phone]. High blood pressure problems during & after Preeclampsia or induced hypertension is a high blood pressure disease that can happen in and shortly after delivery (up to 6 weeks after having your baby). Most women will developblood pressure problems towards the end of their , but others will have it for the first time after their delivery. High blood pressure can be dangerous and needs to be monitored closely. Blood pressures can get so high that it can put you at risk for brain injury, stroke, and seizures. Preeclampsia can also hurt your kidneys and liver or cause buildup of fluid in your lungs. If it is very severe and not treatedpreeclampsia can cause . Preeclampsia affects 8-10 out of 100 women and although we don???t know exactly what causes it we do know that some women are at higher risk: - First - If you are under 18 years old or over 40 years old - If you have diabetes, kidney problems, or Lupus - If you are obese - If you have had preeclampsia before - If you had high blood pressure before - If you are with twins or triplets The best way to treat preeclampsia is to have the baby and most of the time your blood pressure will return to normal after delivery, but some people still have high blood pressure after the baby is born. Some people need medication when leaving the hospital to help keep you blood pressure in a normal range. You may only need to take medication for a short time after the baby is born others need it for longer periods of time. It is very important that you get this prescription filled and take the medicine as instructed in order to help control your blood pressure. If you have preeclampsia or another hypertensive disorder of after you go home from the hospital, you should call the doctor if you experience: termite control servicer risks of preeclampsia If you had preeclampsia or high blood pressure in you have a higher chance of having highblood pressure sometime later in life. It can also increase your chance of heart disease, heart attack, or stroke in future . May women who get preeclampsia will not have it again in the future but women with preeclampsia have a higher chance of getting it again compared to women who did not have it. If you had a baby before 34 weeks because of preeclampsia, you have the highest chance of getting it again. It is very important you see a primary care doctor for regular checkups to have your blood pressurechecked. Discharge Medications: Take the following medications. Your medication list START taking these medications acetaminophen 500 mg capsule 1,000 mg, oral, Every 6 hours PRN cyclobenzaprine 5 mg tablet 5 mg, oral, 2 times daily PRN Commonly known as: FLEXERIL ferrous sulfate 325 mg (65 mg of elemental iron) tablet 325 mg, oral, Daily with breakfast labetaloL 300 mg tablet 300 mg, oral, 3 times daily Commonly known as: NORMODYNE,TRANDATE lidocaine 5 % 2 patches, transdermal, Every 24 hours, Remove & discard patch within 12 hours or as directed by MD. Doctor's comments: Okay to dispense 5% Commonly known as: LIDODERM NIFEdipine 60 mg 24 hr tablet 120 mg, oral, Daily Commonly known as: PROCARDIA XL/ADALAT CC Start taking on: September 23, 2024 oxyCODONE 5 mg immediate release tablet 5 mg, oral, Every 4 hours PRN Commonly known as: ROXICODONE polyethylene glycol 17 gram/dose bulk powder 17 g, oral, Daily PRN Commonly known as: MIRALAX CHANGE how you take these medications ibuprofen 600 mg tablet 600 mg, oral, Every 6 hours PRN Commonly known as: ADVPETTY NOE What changed: medication strength how much to take how to take this when to take this reasons to take this additional instructions CONTINUE taking these medications 19 ORAL oral STOP taking these medications aspirin 81 mg chewable tablet cholecalciferol 2000 unit tablet Commonly known as: VITAMIN D-3 metoclopramide 10 mg tablet Commonly known as: REGLAN progesterone 200 mg capsule Commonly known as: PROMETRIUM 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 documented in this encounter Medications at Time of Discharge acetaminophen 500 mg capsuleIndicatio ns:Pain Take 2 capsules (1,000 mg total) by mouth every 6 (six) hours as needed for pain 90 tablet 09/22/2024 cyclobenzaprine (FLEXERIL) 5 mg tablet Take 1 tablet (5 mg total) by mouth 2 (two) times a day as needed for muscle spasms 30 tablet 09/22/2024 ferrous sulfate 325 mg (65 mg of elemental iron) tabletIndication s:Iron Deficiency Anemia Take 1 tablet (325 mg total) by mouth daily with breakfast 30 tablet 2 09/22/2024 5 ibuprofen (ADVIL,MOTRIN) 600 mg tabletIndication s:Cramps Take 1 tablet (600 mg total) by mouth every 6 (six) hours as needed for pain 90 tablet 09/22/2024 labetaloL (NORMODYNE,TRAND ATE) 300 mg tablet Take 1 tablet (300 mg total) by mouth 3 (three) times a day 90 tablet 2 09/22/2024 5 lidocaine (LIDODERM) 5 % Place 2 patches on the skin daily Remove & discard patch within 12 hours or as directed by . 10 patch 09/22/2024 5 NIFEdipine (PROCARDIA XL/ADALAT CC) 60 mg 24 hr tablet Take 2 tablets (120 mg total) by mouth daily 60 tablet 2 09/23/2024 5 oxyCODONE (ROXICODONE) 5 mg immediate release tabletIndication s:Pain Take 1 tablet (5 mg total) by mouth every 4 (four) hours as needed for pain 15 tablet 09/22/2024 polyethylene glycol (MIRALAX) 17 gram/dose bulk powder Take 17 g by mouth daily as needed (constipation) 289 g 09/22/2024 no115/iron/folic acid ( 19 ORAL) Take by mouth documented as of this encounter Ordered Prescriptions Prescription Sig Dispense Quantity Refills Last Filled Start Date End Date labetaloL (NORMODYNE,TRANDAT E) 300 mg tablet Take 1 tablet (300 mg total) by mouth 3 (three) times a day 90 tablet 2 09/22/2024 5 NIFEdipine (PROCARDIA XL/ADALAT CC) 60 mg 24 hr tablet Take 2 tablets (120 mg total) by mouth daily 60 tablet 2 09/23/2024 5 oxyCODONE (ROXICODONE) 5 mg immediate release tabletIndications: Pain Take 1 tablet (5 mg total) by mouth every 4 (four) hours as needed for pain 15 tablet 09/22/2024 polyethylene glycol (MIRALAX) 17 gram/dose bulk powder Take 17 g by mouth daily as needed (constipation) 289 g 09/22/2024 lidocaine (LIDODERM) 5 % Place 2 patches on the skin daily Remove & discard patch within 12 hours or as directed by . 10 patch 09/22/2024 5 ferrous sulfate 325 mg (65 mg of elemental iron) tabletIndications: Iron Deficiency Anemia Take 1 tablet (325 mg total) by mouth daily with breakfast 30 tablet 2 09/22/2024 5 cyclobenzaprine (FLEXERIL) 5 mg tablet Take 1 tablet (5 mg total) by mouth 2 (two) times a day as needed for muscle spasms 30 tablet 09/22/2024 acetaminophen 500 mg capsuleIndications :Pain Take 2 capsules (1,000 mg total) by mouth every 6 (six) hours as needed for pain 90 tablet 09/22/2024 ibuprofen (ADVIL,MOTRIN) 600 mg tabletIndications: Cramps Take 1 tablet (600 mg total) by mouth every 6 (six) hours as needed for pain 90 tablet 09/22/2024 labetaloL (NORMODYNE,TRANDAT E) 300 mg tablet Take 1 tablet (300 mg total) by mouth 3 (three) times a day 90 tablet 11 09/22/2024 4 documented in this encounter Discharge Disposition Disposition Code Departure Means Destination Discharge to home or self care documented in this encounter Progress Notes * Ana Gauthier CHILD SUPPORT OFFICER - 09/22/2024 9:10 AM CST Post Progress Note Admission Date: 07/29/2024 SUBJECTIVE Suki Leon is a 29 y.o. postop day 3 s/p Regino Leon [[id number]] Morales Leon [[id number]] . Pain: Controlled Bleeding: lochia minimal Oral Intake: taking regular diet Voiding: without difficulty Bowel function: flatus and bowel movement Ambulating: yes Mood: stable Feeding: No acute events overnight. Denies HARRY, visual changes, chest pain, SOB, or RUQ [...] ABORH O Negative 09/20/2024 IDCOOMB Negative 09/18/2024 [id number] Nonreactive 08/13/2024 LABRPR Nonreactive 08/13/2024 RUBELIGG Reactive [...] AND calcium gluconate AND Magnesium cyclobenzaprine ibuprofen jqbxfzy-jbvjz-hbsomzg ondansetron ODT OR ondansetron oxyCODONE simethicone sodium chloride 0.9% ASSESSMENT/PLAN Suki Leon is a 29 y.o. female postop day 3 s/p Regino Leon [[id number]] Morales Leon [[id number]] . Problem Care Following Delivery # ID: [...] Blood pressures well controlled on N120XL and [id number]. CBC/CMP WNL, UPC 0.1.Enrolled in remote blood pressure monitoring. Received text. [...] # Disposition: Follow up task sent to [facility] scheduling pool for appointments in 2 and 6 weeks. They are enrolled in remote blood pressure monitoring for their BP check. Desires discharge home today. Service Coverage These phones are service phones and carried 27/04 in house: R1 (first call) [phone] R1 alt (second call) [phone] R4 (Chief) [phone] CATALINA Tena 09/22/24 Cosigned by Willie Kelly MD at 09/22/2024 4:18 PM WIRE 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 * Marge Castro RD - 09/21/2024 3:22 PM CST Nutrition Screen Note Pt. Screened for nutritional [...] Adult Diet Regular Diet effective now Question: ([facility]) Diet type Answer: Regular 09/19/24 1634 Assessment / Impression: Attempted to see patient for follow-up nutrition screen, but she was not in the room at time of visit. She is on a regular diet and previously reported good PO intake. Per progress notes she plans to breast feed. Left breast feeding nutrition therapy education at bedside. Marge Castro MS, RD, CNSC, LD Cell 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 * Millie Pierce LCSW - 09/21/2024 12:19 PM CST Reason for Admission MOB (Suki Abenaneena Leon 1995) was admitted on 07/29/2024 for Preeclampsia, unspecifiedtrimester [O14.90]. Social Work met with Suki Leon for check in. 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 Pediatric follow-up to be scheduled throughout twins' admission to the [facility] NICU. Medical insurance coverage is through [employer] [place] [employer], [place]. Information Pt. delivered twin baby's with a of 09/19/24. Twins' EGA's are . Baby boy A's name is Regino and weighed 5lb 8.2oz at delivery. Baby boy B's name is Moralse and weighed 4lb 3oz. Pt. delivered via . Babies were admitted to the [facility] NICU. Pt. plans to breast feed the twins and is currently pumping. These are the Pt.'s first children. [place] admitted to [facility] NICU re: prematurity, RDS. Social History Current address is [address] [place] [id number], where she lives with her . Currently [phone] (home) is the best phone number for future contact. MOB reports that her and their families will be a positive support for her and her child. Father of the baby, Florentino Leon, can be reached at [phone]. FOB has been present and supportive at the hospital. Mood and Anxiety Maternal history of anxiety. SW and MOB discussed mental health and coping throughout inpatient APUadmission. MOB continues to report manageable mood and is adjusting as expected to twins' admssion to [facility] NICU. SW and MOB discussed the signs and symptoms of Mood and Anxiety Disorder and reviewed thedifferences between PMAD and Baby Blues. SW discussed and normalized increase in emotions and the importance of self-care. MOB engaged in conversation and demonstrates knowledge. MOB encouraged to seek medical and mental health treatment if PMAD symptoms arise. MOB confirms that she feels supportedby: , family, and can reach out to her OBGYN for follow up support, if symptoms arise. SW informed MOB that PMAD/Baby Blues information and supportive phone numbers are provided in Welcome Folder. SW reviews [facility] NICU SW and [facility] support services available throughout 's ongoing admission.MOB engaged in conversation and demonstrates knowledge. Resources Provided and Goals Addressed Social Determinants of Health: No concerns with transportation reported. Local community resources discussed, including Nurses forNewborns, and no referrals requested at this time. MOB confirms having all needed baby items prepared for , including car seat, clothing, crib/bassinet, bottles, etc. Family eligible for local lodging referrals (HASMUKH Garcia)- This clinician reviews [facility] resources, including waitlist and need for background checks to be completed prior to their entry. Family understanding and agreeable to referral- this clinician completes referral, as requested. [facility] SW provides support and encouragement. Family denies having any questions or concerns for this clinician. Strengths MOB is open and receptive to Social Work intervention, education, and resources. Safe Discharge Plan [facility] SW to collaborate with [facility] NICU SW (Sim Marino, ) for family care handoff, as needed. NICU SW will follow up with family throughout remainder of 's admission to [facility]. No further [facility] SW needs indicated at this time. ARACELIS Tyler, INDUSTRIAL 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 [facility] Clinical Police Communications Operator Women and Infants Units 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 * Ana Gauthier NP - 09/21/2024 8:55 AM CST Post Progress Note Admission Date: 07/29/2024 KHADAR Leon is a 29 y.o. postop day 2 s/p Tiffany Leon [[id number]] Nancy Leon [[id number]] . Pain: moderately Controlled Bleeding: lochia minimal Oral Intake: taking regular diet Voiding: without difficulty Bowel function: flatus and bowel movement Ambulating: yes Mood: stable Feeding: No acute events overnight. Denies HARRY, visual changes, chest pain, SOB, or RUQ [...] approximated with steristrips in place - c/d/i incisionalcare and s/s infection reviewed with patient. Extremities: [...] ABORH O Negative 09/20/2024 IDCOOMB Negative 09/18/2024 [id number] Nonreactive 08/13/2024 LABRPR Nonreactive 08/13/2024 RUBELIGG Reactive [...] AND calcium gluconate AND Magnesium cyclobenzaprine ibuprofen yrojwfp-hqiez-iqtwxvi ondansetron ODT OR ondansetron oxyCODONE simethicone sodium chloride 0.9% varicella zoster ASSESSMENT/PLAN Suki Leon is a 29 y.o. female postop day 2 s/p Tiffany Leon [[id number]] Nancy Leon [[id number]] . Problem Care Following Delivery # ID: [...] Blood pressures well controlled on N120XL and [id number]. CBC/CMP WNL, UPC 0.1.Enrolled in remote blood pressure monitoring. #Sinus tachycardia, intermittent: Likely secondary toreflex tachycardia from nifedipine. Thyroid studies normal. Elevated [...] # Disposition: Follow up task sent to [facility] scheduling pool for appointments in 2 and 6 weeks. They are enrolled in remote blood pressure monitoring for their BP check. Continue routine postoperative care. Service Coverage These phones are service phones and carried 27/04 in house: R1 (first call) [phone] R1 alt (second call) [phone] R4 (Chief) [phone] CATALINA Tena 09/21/24 Cosigned by Angelica Amin MD at 09/21/2024 5:43 PM WIRE 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 Associated attestation - Angelica Amin MD - 09/21/2024 5:43 PM WIRE 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 The nurse practitioner saw and examined the patient, we discussed their findings, and I am in agreement with the plan based on the discussion with the nurse practitioner. I did not personally examinethe patient as she was out of her room at the time of rounding. Angelica Amin MD * Carola Murphy - 09/20/2024 1:15 PM CST Chaplain Carola Murphy [facility] Spiritual Care Triage: [phone] 09/20/24 1300 Time Spent Start Time 1300 Stop Time 1315 Time Calculation (min) 15 min Clinical Encounter Type Visited With Patient Response Type Routine visit;Continuing visit Routine Visit Follow-up Reason for visit Support Outcomes and Progress Demonstrating care and respect Achieved Establish rapport and connectedness Achieved Interventions Interventions Offer emotional support 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 * Marielle Shanks DO - 09/20/2024 6:47 AM CST Post Progress Note Delivery Date/Time: 09/19/2024t 2:59 PM Delivery method: Tiffany Leon [[id number]] [[id number]] Nancy Leon [[id number]] [351] Subjective Suki Leon is a 29 y.o. POD#1 from [facility]. Doing well this morning, does notlike how the magnesium makes her feel. Flatus: [...] AND calcium gluconate AND Magnesium HYDROmorphone ibuprofen hkqinfs-fzmbd-idpmnbp naloxone ondansetron ondansetron ODT OR ondansetron oxyCODONE [...] appropriately tender to palpation. Fundus below umbilicus. Bandagec/d/i Extremities: Warm and well-perfused. Neuro: Globally intact [...] Blood pressures well controlled on N120XL and [id number]. CBC/CMP WNL, UPC 0.1. To be enrolled [...] # Disposition: Follow up task sent to [facility] scheduling pool for appointments in 2 and 6 weeks. They are enrolled in remote blood pressure monitoring for their BP check. Continue routine postoperative care. Service Coverage These phones are service phones and carried 27/04 in house: R1 (first call) [phone] R1 alt (second call) [phone] R4 (Chief) [phone] Marielle Shanks DO Resident Physician, PGY-1 Department of Obstetrics & Gynecology R4 Attestation I agree with the above documentation. POD#1 scheduled pLTCS for Shay and PreEwSF. Continues on MgSO4 until this afternoon 1500, BPs well controlled on current 2 agent regimen. Continue routine care. Sue Rodriguez MD PGY-4 Cosigned by Abigail Alberto MD at 09/20/2024 6:12 PM WIRE 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 Associated attestation - Abigail Alberto MD - 09/20/2024 6:12 PM WIRE 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 I have seen and examined the patient on 09/20/24. I agree with the findings and plan of care as documented in the resident's/fellow's note. Abigail Alberto MD * Anastasia Plaza MD - 09/19/2024 7:26 AM CST Antepartum Progress Note Gestational Age: 34w0d Admission [...] 18 BP: (123-140)/(77-87) 123/79 FHR: reactive NST [place]: no regular contractions Physical Exam General: No [...] Thyroid studies WNL #Chronic headaches - Hx HARRY inside and outside of , previously on [...] aorta (0.75cm) (same as previous scan but twinsmoved positions) - s/p cardiology consult - plan [...] Josefina Peter MD at 10/05/2024 8:24 PM WIRE 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 Associated attestation - Josefina Peter MD - 10/05/2024 8:24 PM WIRE 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 I have seen and examined the patient on 09/19/24. I agree with the findings and plan of care as documented in the resident's/fellow's note. Patient managed expectantly having preeclampsia with severefeatures and MC/DA twins, now 34 weeks gestation. Plan delivery by CS today. Josefina Peter MD * Rey Quinonez MD - 09/18/2024 6:10 AM CST Antepartum Progress Note Gestational Age: 33w6d Admission [...] 18 BP: (112-135)/(62-89) 135/89 FHR: reactive NST [place]: no regular contractions Physical Exam General: No [...] Thyroid studies WNL #Chronic headaches - Hx HARRY inside and outside of , previously on [...] aorta (0.75cm) (same as previous scan but twinsmoved positions) - s/p cardiology consult - plan [...] Sandra Christy MD at 09/18/2024 8:19 AM WIRE 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 Associated attestation - Sandra Christy MD - 09/18/2024 8:19 AM WIRE 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 I have seen and examined the patient. I agree with the findings and plan of care as documented in this note. Sandra Christy MD MS Maternal- Medicine * Rey Quinonez MD - 09/17/2024 5:59 AM CST Antepartum Progress Note Gestational Age: 33w5d Admission [...] BP: (117-136)/(76-91) 133/81 FHR: reactive NST x2 [place]: no regular contractions Physical Exam General: No [...] Thyroid studies WNL #Chronic headaches - Hx HARRY inside and outside of , previously on [...] aorta (0.75cm) (same as previous scan but twinsmoved positions) - s/p cardiology consult - plan [...] Sandra Christy MD at 09/17/2024 8:19 AM WIRE 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 Associated attestation - Sandra Christy MD - 09/17/2024 8:19 AM WIRE 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 I have seen and examined the patient. I agree with the findings and plan of care as documented in this note. Sandra Christy MD MS Maternal- Medicine * Carola Murphy - 09/16/2024 11:15 AM CST Chaplain Carola Murphy [facility] Spiritual Care Triage: [phone] 09/16/24 1100 Time Spent Start Time 1100 Stop Time 1115 Time Calculation (min) 15 min Clinical Encounter Type Visited With Patient Response Type Routine visit;Continuing visit Routine Visit Follow-up Reason for visit Support Outcomes and Progress Demonstrating care and respect Achieved Establish rapport and connectedness Achieved Interventions Interventions Offer emotional support;Offer spiritual/jain support;Prayer 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 * Rey Quinonez MD - 09/16/2024 7:00 AM CST Antepartum Progress Note Gestational Age: 33w4d Admission [...] BP: (119-136)/(70-83) 126/79 FHR: reactive NST x2 [place]: no regular contractions Physical Exam General: No [...] BILIRUBIN TOTAL mg/dL <0.2 <0.2 ASSESSMENT/PLAN Suki Kraft Leon 29 y.o. at 33w4d a/f preeclampsia [...] Thyroid studies WNL #Chronic headaches - Hx HARRY inside and outside of , previously on [...] aorta (0.75cm) (same as previous scan but twinsmoved positions) - s/p cardiology consult - plan [...] Sandra Christy MD at 09/16/2024 9:27 AM WIRE 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 Associated attestation - Sandra Christy MD - 09/16/2024 9:27 AM WIRE 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 I have seen and examined the patient. I agree with the findings and plan of care as documented in this note. Plan for delivery at 34 weeks for preeclampsia with severe features and sFGR of Twin 1. After counseling yesterday, patient desires primary CS for mode of del. Sandra Christy MD MS Maternal- Medicine * Joellen Schilling MD - 09/15/2024 5:59 PM CST Brief Note Went to bedside to discuss [...] she has been leaning toward CS for awhile now. She is aware she is a good candidate for planned vaginal delivery, but is more comfortable with CS at this time. Discussed risks of CS including bleeding, infection, and more difficult recovery as well as implications for future pregnancies. All questions answered. Plan to schedule CS [id number] and continue daily testing. Joellen Schilling MD Maternal- Medicine Fellow 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 * Anastasia Plaza MD - 09/15/2024 7:57 AM CST Antepartum Progress Note Gestational Age: 33w3d Admission [...] BP: (122-137)/(61-88) 124/61 FHR: reactive NST x2 [place]: no regular contractions Physical Exam General: No [...] Thyroid studies WNL #Chronic headaches - Hx HARRY inside and outside of , previously on [...] aorta (0.75cm) (same as previous scan but twinsmoved positions) - s/p cardiology consult - plan [...] UA dopplers, MCA 1.01 MOM, Twin 2 Vertex(presenting), DVP 5.4, normal bladder, normal UA dopplers, [...] Sandra Christy MD at 09/15/2024 11:55 AM WIRE 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 Associated attestation - Sandra Christy MD - 09/15/2024 11:55 AM WIRE 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 I have seen and examined the patient. I agree with the findings and plan of care as documented in this note. Follow up growth US to discuss mode of del Sandra Christy MD MS Maternal- Medicine * Sandra Christy MD - 09/14/2024 6:38 AM CST Antepartum Progress Note Gestational Age: 33w2d Admission Date: 07/29/2024 Length of stay: 47 Admission Diagnosis: preeclampsia with severe features otherwise affected by: Shay twins, Twin B with aortic root dilation and lateral ventriculomegaly, chronic headaches, Rh neg, dep/anxiety INTERVAL EVENTS - NAEON - BPs mostly MR KHADAR Feels well,. No complaints. Review of Systems Negative except as per above OBJECTIVE Vitals: Temp: [36.6 ??C (97.8 ??F)-36.8 ??C (98.3 ??F)] 36.6 ??C (97.9 ??F) Pulse: [93-108] 108 Resp: [16-18] 17 BP: (127-141)/(86-99) 140/91 FHR: reactive NST x2 [place]: no regular contractions Physical Exam General: No [...] Thyroid studies WNL #Chronic headaches - Hx HARRY inside and outside of , previously on [...] aorta (0.75cm) (same as previous scan but twinsmoved positions) - s/p cardiology consult - plan [...] UA dopplers, MCA 1.01 MOM, Twin 2 Vertex(presenting), DVP 5.4, normal bladder, normal UA dopplers, [...] note. Sandra Christy MD MS Maternal- Medicine 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 * Millie Pierce LCSW - 09/13/2024 2:28 PM CST Reason for Admission Pt (Suki Kraft Leon 1995) was admitted on 07/29/2024 for Preeclampsia, unspecified trimester [O14.90]. Pt discussed in DCAM rounds with medical team. Per DCAM rounds, pt remains admitted to the APU due to ongoing medical needs. SW to follow for coping, adjustment to diagnosis as needed, and assess for social needs. SW remains available. Millie Pierce, FITTINGS TIGHTENER, INDUSTRIAL 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 [facility] Clinical Police Communications Operator Women and Infants Units 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 * Anastasia Plaza MD - 09/13/2024 7:11 AM CST Antepartum Progress Note Gestational Age: 33w1d Admission [...] BP: (120-137)/(71-92) 131/84 FHR: reactive NST x2 [place]: no regular contractions Physical Exam General: No [...] Thyroid studies WNL #Chronic headaches - Hx HARRY inside and outside of , previously on [...] aorta (0.75cm) (same as previous scan but twinsmoved positions) - s/p cardiology consult - plan [...] UA dopplers, MCA 1.01 MOM, Twin 2 Vertex(presenting), DVP 5.4, normal bladder, normal UA dopplers, [...] Sandra Christy MD at 09/13/2024 10:29 AM WIRE 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 Associated attestation - Sandra Christy MD - 09/13/2024 10:29 AM WIRE 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 I have seen and examined the patient. I agree with the findings and plan of care as documented in this note. Sandra Christy MD MS Maternal- Medicine * Carola Murphy - 09/12/2024 11:00 AM CST Chaplain Carola Murphy [facility] Spiritual Care Triage: [phone] 09/12/24 1045 Time Spent Start Time 1045 Stop Time 1100 Time Calculation (min) 15 min Clinical Encounter Type Visited With Patient Response Type Routine visit;Continuing visit Routine Visit Follow-up Reason for visit Support Outcomes and Progress Demonstrating care and respect Achieved Establish rapport and connectedness Achieved Interventions Interventions Offer emotional support;Offer spiritual/jain support 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 * Rey Quinonez MD - 09/12/2024 7:24 AM CST Antepartum Progress Note Gestational Age: 33w0d Admission [...] BP: (120-143)/(76-90) 125/87 FHR: reactive NST x2 [place]: no regular contractions Physical Exam General: No [...] Thyroid studies WNL #Chronic headaches - Hx HARRY inside and outside of , previously on [...] aorta (0.75cm) (same as previous scan but twinsmoved positions) - s/p cardiology consult - plan [...] UA dopplers, MCA 1.01 MoM, Twin 2 Vertex(presenting), DVP 5.4, normal bladder, normal UA dopplers, [...] Sandra Christy MD at 09/12/2024 9:25 AM WIRE 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 Associated attestation - Sandra Christy MD - 09/12/2024 9:25 AM WIRE 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 I have seen and examined the patient. I agree with the findings and plan of care as documented in this note. Will address mode of del after next growth US Sandra Christy MD MS Maternal- Medicine * Anastasia Plaza MD - 09/11/2024 7:22 AM CST Antepartum Progress Note Gestational Age: 32w6d Admission [...] BP: (124-139)/(79-87) 136/79 FHR: reactive NST x2 [place]: no regular contractions Physical Exam General: No [...] Thyroid studies WNL #Chronic headaches - Hx HARRY inside and outside of , previously on [...] aorta (0.75cm) (same as previous scan but twinsmoved positions) - s/p cardiology consult - plan for echo of twin B prior to discharge #lateral ventriculomegaly of twin B fUS 08/09: Twin A: vertex, normal MVP, Twin B: vertex, normal MVP, mild left sided ventriculomegaly,right difficult to visualize. - s/p NICU consult [...] UA dopplers, MCA 1.01 MOM, Twin 2 Vertex(presenting), DVP 5.4, normal bladder, normal UA dopplers, [...] Sara Eng MD at 09/11/2024 9:48 AM WIRE 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 Associated attestation - Sara Eng MD - 09/11/2024 9:48 AM WIRE 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 I have seen and examined the patient on 09/11/24. I agree with the findings and plan of care as documented in the resident's/fellow's note. Continue expectant management of preeclampsia with severe features. Sara Eng MD * Anastasia Plaza MD - 09/10/2024 6:55 AM CST Antepartum Progress Note Gestational Age: 32w5d Admission Date: 07/29/2024 Length of stay: 43 Admission Diagnosis: preeclampsia with severe features otherwise affected by: Shay twins, Twin B with aortic root dilation and lateral ventriculomegaly, chronic headaches, Rh neg, dep/anxiety INTERVAL EVENTS - NAEON - BPs normotensive SUBJECTIVE - good movement x2, no LOF, VB, CTX - Denies HARRY, vision changes, SOB, chest pain, RUQ pain, new swelling changes. Review of Systems Negative except as per above OBJECTIVE Vitals: Temp: [36.5 ??C (97.7 ??F)-36.8 ??C (98.3 ??F)] 36.8 ??C (98.3 ??F) Pulse: [87-107] 100 Resp: [16-20] 16 BP: (124-134)/(78-86) 125/81 FHR: reactive NST x2 [place]: no regular contractions Physical Exam General: No [...] Thyroid studies WNL #Chronic headaches - Hx HARRY inside and outside of , previously on [...] aorta (0.75cm) (same as previous scan but twinsmoved positions) - s/p cardiology consult - plan for echo of twin B prior to discharge #lateral ventriculomegaly of twin B fUS 08/09: Twin A: vertex, normal MVP, Twin B: vertex, normal MVP, mild left sided ventriculomegaly,right difficult to visualize. - s/p NICU consult [...] UA dopplers, MCA 1.01 MOM, Twin 2 Vertex(presenting), DVP 5.4, normal bladder, normal UA dopplers, [...] Nini Cortez MD at 09/10/2024 3:14 PM WIRE 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 Associated attestation - Nini Cortez MD - 09/10/2024 3:14 PM WIRE 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 MFM Attending Attestation I have seen and examined the patient, Suki Leon, on 09/10/2024 and I am in agreement with the plan as documented in the resident/fellow/CARLI's note. Doing well this AM. Continue inpatient management. Nini Cortez MD 09/10/2024 * Anastasia Plaza MD - 09/09/2024 7:08 AM CST Antepartum Progress Note Gestational Age: 32w4d Admission [...] x2, no LOF, VB, CTX - Denies HARRY, vision changes, SOB, chest pain, RUQ pain, new swelling changes. Review of Systems Negative except as per above OBJECTIVE Vitals: Temp: [36.6 ??C (97.9 ??F)-36.9 ??C (98.4 ??F)] 36.7 ??C (98 ??F) Pulse: [92-102] 92 Resp: [16-18] 16 BP: (121-138)/(72-87) 130/76 FHR: reactive NST x2 [place]: no regular contractions Physical Exam General: No [...] Thyroid studies WNL #Chronic headaches - Hx HARRY inside and outside of , previously on [...] aorta (0.75cm) (same as previous scan but twinsmoved positions) - s/p cardiology consult - plan for echo of twin B prior to discharge #lateral ventriculomegaly of twin B fUS 08/09: Twin A: vertex, normal MVP, Twin B: vertex, normal MVP, mild left sided ventriculomegaly,right difficult to visualize. - s/p NICU consult [...] UA dopplers, MCA 1.01 MOM, Twin 2 Vertex(presenting), DVP 5.4, normal bladder, normal UA dopplers, [...] Sara Eng MD at 09/09/2024 12:11 PM WIRE 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 Associated attestation - Sara Eng MD - 09/09/2024 12:11 PM WIRE 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 I have seen and examined the patient on 09/09/24. I agree with the findings and plan of care as documented in the resident's/fellow's note. Sara Eng MD. * Carola Murphy - 09/08/2024 11:40 AM CST Chaplain Carola Murphy [facility] Spiritual Care Triage: [phone] 09/08/24 1100 Time Spent Start Time 1120 Stop Time 1140 Time Calculation (min) 20 min Clinical Encounter Type Visited With Patient Response Type Routine visit;Continuing visit Routine Visit Follow-up Reason for visit Support Outcomes and Progress Demonstrating care and respect Achieved Establish rapport and connectedness Achieved Interventions Interventions Offer emotional support;Offer spiritual/jain support 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 * Anastasia Plaza MD - 09/08/2024 7:34 AM CST Antepartum Progress Note Gestational Age: 32w3d Admission Date: 07/29/2024 Length of stay: 41 Admission Diagnosis: preeclampsia with severe features otherwise affected by: Shay twins, 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 Review of Systems Negative except as per above OBJECTIVE Vitals: Temp: [36.6 ??C (97.9 ??F)-37 ??C (98.6 ??F)] 36.6 ??C (97.9 ??F) Pulse: [87-113] 95 Resp: [16-18] 18 BP: (119-138)/(61-87) 138/87 FHR: reactive NST x2 [place]: no regular contractions Physical Exam General: No [...] Thyroid studies WNL #Chronic headaches - Hx HARRY inside and outside of , previously on [...] aorta (0.75cm) (same as previous scan but twinsmoved positions) - s/p cardiology consult - plan for echo of twin B prior to discharge #lateral ventriculomegaly of twin B fUS 08/09: Twin A: vertex, normal MVP, Twin B: vertex, normal MVP, mild left sided ventriculomegaly,right difficult to visualize. - s/p NICU consult [...] Mo di screen nl, EFW 1784g (79ile); Twin1 nl mo di screen, EFW 1348g (11ile). [...] neg 09/03 - MOD: TBD, IOL 09/19 @0530 - MOF: breast - MOC: nexplanon - AC: BID ppx lovenox Anastasia Plaza MD 09/08/24 Cosigned by Sara Eng MD at 09/08/2024 10:42 AM WIRE 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 Associated attestation - Sara Eng MD - 09/08/2024 10:42 AM WIRE 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 I have seen and examined the patient on 09/08/24. I agree with the findings and plan of care as documented in the resident's/fellow's note. Sara Eng MD . * Marge Castro, RD - 09/07/2024 4:11 PM CST Nutrition Screen Note Pt. Screened for nutritional [...] Adult Diet Regular Diet effective now Question: ([facility]) Diet type Answer: Regular 07/29/24 1220 Assessment / Impression: Met with patient at bedside. She reported good appetite and PO intake. Recommend weekly weights. RD will continue to monitor. Marge Castro MS, RD, [facility], LD Cell 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 * Anastaisa Plaza MD - 09/07/2024 6:27 AM CST Antepartum Progress Note Gestational Age: 32w2d Admission [...] x2, no LOF, VB, CTX - Denies HARRY, vision changes, SOB, chest pain, RUQ pain, new swelling changes. Review of Systems Negative except as per above OBJECTIVE Vitals: Temp: [36.7 ??C (98.1 ??F)-37.1 ??C (98.7 ??F)] 37.1 ??C (98.7 ??F) Pulse: [96-126] 96 Resp: [18] 18 BP: (117-173)/(71-96) 120/71 FHR: reactive NST x2 [place]: no regular contractions Physical Exam General: No [...] Thyroid studies WNL #Chronic headaches - Hx HARRY inside and outside of , previously on [...] aorta (0.75cm) (same as previous scan but twinsmoved positions) - s/p cardiology consult - plan for echo of twin B prior to discharge #lateral ventriculomegaly of twin B fUS 08/09: Twin A: vertex, normal MVP, Twin B: vertex, normal MVP, mild left sided ventriculomegaly,right difficult to visualize. - s/p NICU consult [...] Mo di screen nl, EFW 1784g (79ile); Twin1 nl mo di screen, EFW 1348g (11ile). [...] Sara Eng MD at 09/07/2024 9:34 AM WIRE 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 Associated attestation - Sara Eng MD - 09/07/2024 9:34 AM WIRE 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 I have seen and examined the patient on 09/07/24. I agree with the findings and plan of care as documented in the resident's/fellow's note. Adding unisom for sleep. Sara Eng MD * Rey Quinonez MD - 09/06/2024 6:59 PM CST R2 update Patient called out for possible leakage on ambulation to the bathroom. No gush of fluid. No continuous leakage. Vitals: 09/06/24 1334 BP: 126/79 Pulse: 122 Resp: 18 Temp: 36.7 ??C (98.1 ??F) SpO2: 93% SSE: no pooling, physiologic discharge, pH 4.5, no ferning Plan: - No ROM - Resume monitoring Rey Quinonez MD Obstetrics and Gynecology, PGY-2 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 * Anastasia Plaza MD - 09/06/2024 7:23 AM CST Antepartum Progress Note Gestational Age: 32w1d Admission Date: 07/29/2024 Length of stay: 39 Admission Diagnosis: preeclampsia with severe features otherwise affected by: Shay twins, Twin B with aortic root dilation and lateral ventriculomegaly, chronic headaches, Rh neg, dep/anxiety INTERVAL EVENTS - NAEON - < 50% mild range BPs SUBJECTIVE - good movement x2, no LOF, VB, CTX - Denies HARRY, vision changes, SOB, chest pain, RUQ pain, new swelling changes. Review of Systems Negative except as per above OBJECTIVE Vitals: Temp: [36.5 ??C (97.7 ??F)-36.7 ??C (98.1 ??F)] 36.7 ??C (98 ??F) Pulse: [91-118] 96 Resp: [14-18] 18 BP: (125-147)/(81-95) 128/87 FHR: reactive NST x2 [place]: no regular contractions Physical Exam General: No acute distress. Lungs: Non-labored. Abdomen: Deferred Extremities: Warm and well-perfused. No bilateral lower extremity calf tenderness. Trace non pitting lower extremity edema Pelvic: Deferred. Neurologic: Deferred Lab Review: Recent Labs Lab Units 09/06/24 04309/03/24 0508/31/24 0620 WBC K/cumm 10.3* 12.1* 10.5* HEMOGLOBIN g/dL 11.7* 11.7* 11.5* HEMATOCRIT % 34.5* 34.0* 34.1* PLATELETS K/cumm 249 273 282 Recent Labs Lab Units 09/06/24 04309/03/24 0526 08/31/24 0620 SODIUM mmol/L 138 139 [...] Thyroid studies WNL #Chronic headaches - Hx HARRY inside and outside of , previously on [...] aorta (0.75cm) (same as previous scan but twinsmoved positions) - s/p cardiology consult - plan for echo of twin B prior to discharge #lateral ventriculomegaly of twin B fUS 08/09: Twin A: vertex, normal MVP, Twin B: vertex, normal MVP, mild left sided ventriculomegaly,right difficult to visualize. - s/p NICU consult [...] Sara Eng MD at 09/06/2024 11:17 AM WIRE 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 Associated attestation - Sara Eng MD - 09/06/2024 11:17 AM WIRE 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 I have seen and examined the patient on 09/06/24. I agree with the findings and plan of care as documented in the resident's/fellow's note. Continue expectant management of preeclampsia with severe features. Sara Eng MD * Millie Pierce LCSW - 09/05/2024 12:56 PM CST Reason for Admission Pt (Suki Huizarzaorlin Leon 1995) was admitted on 07/29/2024 for [...] gas cards SW remains available. ARACELIS Tyler, INDUSTRIAL 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 [facility] Clinical Police Communications Operator [facility] 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 * Rey Quinonez MD - 09/05/2024 7:11 AM CST Antepartum Progress Note Gestational Age: 32w0d Admission [...] x2, no LOF, VB, CTX - Denies HARRY, vision changes, SOB, chest pain, RUQ pain, new swelling changes. Review of Systems Negative except as per above OBJECTIVE Vitals: Temp: [36.4 ??C (97.6 ??F)-37.1 ??C (98.7 ??F)] 36.7 ??C (98.1 ??F) Pulse: [90-146] 119 Resp: [16-18] 16 BP: (125-156)/(78-99) 125/86 FHR: reactive NST x2 [place]: no regular contractions Physical Exam General: No [...] Thyroid studies WNL #Chronic headaches - Hx HARRY inside and outside of , previously on [...] aorta (0.75cm) (same as previous scan but twinsmoved positions) - s/p cardiology consult - plan [...] Mo di screen nl, EFW 1784g (79ile); Twin1 nl mo di screen, EFW 1348g (11ile). [...] Sara Eng MD at 09/05/2024 9:05 AM WIRE 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 Associated attestation - Sara Eng MD - 09/05/2024 9:05 AM WIRE 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 I have seen and examined the patient on 09/05/24. I agree with the findings and plan of care as documented in the resident's/fellow's note. For RSV Immunization today after counseling. * Josefina Peter MD - 09/04/2024 7:09 AM CST Antepartum Progress Note Gestational Age: 31w6d Admission Date: 07/29/2024 Length of stay: 37 Admission Diagnosis: preeclampsia with severe features otherwise affected by: Shay twins, Twin B with aortic root dilation and lateral ventriculomegaly, chronic headaches, Rh neg, dep/anxiety INTERVAL EVENTS - NAEON - < 50% mild range BPs - HR 100-120 SUBJECTIVE - good movement x2, no LOF, VB, CTX - Denies HARRY, vision changes, SOB, chest pain, RUQ pain, new swelling changes. Review of Systems Negative except as per above OBJECTIVE Vitals: Temp: [36.5 ??C (97.7 ??F)-36.9 ??C (98.4 ??F)] 36.6 ??C (97.9 ??F) Pulse: [100-117] 117 Resp: [16-18] 16 BP: (127-141)/(78-90) 127/90 FHR: reactive NST x2 [place]: no regular contractions Physical Exam General: No [...] Thyroid studies WNL #Chronic headaches - Hx HARRY inside and outside of , previously on [...] aorta (0.75cm) (same as previous scan but twinsmoved positions) - s/p cardiology consult - plan for echo of twin B prior to discharge #lateral ventriculomegaly of twin B fUS 08/09: Twin A: vertex, normal MVP, Twin B: vertex, normal MVP, mild left sided ventriculomegaly,right difficult to visualize. - s/p NICU consult [...] Mo di screen nl, EFW 1784g (79ile); Twin1 nl mo di screen, EFW 1348g (11ile). [...] HIV /RPR NR/NR - s/p flu vax 10/8, Tdap 08/09 - RSV at 32 wk (09/05) - Rhogam 08/01 - GBS neg 08/01, repeat 09/03 pending - MOD: TBD, IOL 09/19 @ 0530 - MOF: breast - MOC: nexplanon - AC: BID ppx lovenox Maureen Calix MD 09/04/24 MFM attending I saw and examined the patient and agree with the assessment and plan as outlined above; I have edited where appropriate. Josefina Peter MD 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 * Josefina Peter MD - 09/03/2024 7:07 AM CST Antepartum Progress Note Gestational Age: 31w5d Admission [...] x2, no LOF, VB, CTX - Denies HARRY, vision changes, SOB, chest pain, RUQ pain, new swelling changes. Review of Systems Negative except as per above OBJECTIVE Vitals: Temp: [36.4 ??C (97.6 ??F)-36.9 ??C (98.5 ??F)] 36.8 ??C (98.2 ??F) Pulse: [92-129] 120 Resp: [14-18] 18 BP: (127-156)/(69-111) 132/88 FHR: reactive NST x2 [place]: no regular contractions Physical Exam General: No [...] Thyroid studies WNL #Chronic headaches - Hx HARRY inside and outside of , previously on [...] aorta (0.75cm) (same as previous scan but twinsmoved positions) - s/p cardiology consult - plan for echo of twin B prior to discharge #lateral ventriculomegaly of twin B fUS 08/09: Twin A: vertex, normal MVP, Twin B: vertex, normal MVP, mild left sided ventriculomegaly,right difficult to visualize. - s/p NICU consult [...] Mo di screen nl, EFW 1784g (79ile); Twin1 nl mo di screen, EFW 1348g (11ile). [...] have edited where appropriate. Josefina Peter MD 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 * Nini Melendez MD - 09/02/2024 10:59 AM CST R2 Update: Patient persistently MR, will give additional 30 mg NXL now and increase to 120 mg NXL tomorrow AM. Ashley Melendez MD MPH PGY2 OBGYN 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 * Maureen Calix MD - 09/02/2024 7:13 AM CST Antepartum Progress Note Gestational Age: 31w4d Admission [...] x2, no LOF, VB, CTX - Denies HARRY, vision changes, SOB, chest pain, RUQ pain, new swelling changes. Review of Systems Negative except as per above OBJECTIVE Vitals: Temp: [36.7 ??C (98 ??F)-37 ??C (98.6 ??F)] 37 ??C (98.6 ??F) Pulse: [104-127] 113 Resp: [17-20] 18 BP: (125-141)/(60-94) 125/60 FHR: reactive NST x2 [place]: no regular contractions Physical Exam General: No [...] Thyroid studies WNL #Chronic headaches - Hx HARRY inside and outside of , previously on [...] aorta (0.75cm) (same as previous scan but twinsmoved positions) - s/p cardiology consult - plan for echo of twin B prior to discharge #lateral ventriculomegaly of twin B fUS 08/09: Twin A: vertex, normal MVP, Twin B: vertex, normal MVP, mild left sided ventriculomegaly,right difficult to visualize. - s/p NICU consult [...] Mo di screen nl, EFW 1784g (79ile); Twin1 nl mo di screen, EFW 1348g (11ile). [...] Jessica Naranjo MD at 09/02/2024 9:53 AM WIRE 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 Associated attestation - Jessica Naranjo MD - 09/02/2024 9:53 AM WIRE 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 Images from the original note were not included. MFM Attending Attestation I have seen and discussed Suki Leon with the resident/fellow on 09/02/2024. I haveevaluated the patient and reviewed the treatment plan and recommendations. I agree with the findings and the plan of care as documented in the note. Overall blood pressures are well controlled on nifedipine XL 90 mg qD. Asymptomatic. Continue inpatient management. Jessica Naranjo MD [facility] Division of Maternal- Medicine and Ultrasound Department of Obstetrics and Gynecology [facility] 09/02/2024 * Maureen Calix MD - 09/01/2024 7:19 AM CST Antepartum Progress Note Gestational Age: 31w3d Admission [...] x2, no LOF, VB, CTX - Denies HARRY, vision changes, SOB, chest pain, RUQ pain, new swelling changes. Review of Systems Negative except as per above OBJECTIVE Vitals: Temp: [36.7 ??C (98 ??F)-37.1 ??C (98.7 ??F)] 36.7 ??C (98.1 ??F) Pulse: [101-130] 114 Resp: [17-18] 17 BP: (126-139)/(84-103) 131/91 FHR: reactive NST x2 [place]: no regular contractions Physical Exam General: No [...] Thyroid studies WNL #Chronic headaches - Hx HARRY inside and outside of , previously on [...] aorta (0.75cm) (same as previous scan but twinsmoved positions) - s/p cardiology consult - plan for echo of twin B prior to discharge #lateral ventriculomegaly of twin B fUS 08/09: Twin A: vertex, normal MVP, Twin B: vertex, normal MVP, mild left sided ventriculomegaly,right difficult to visualize. - s/p NICU consult [...] Mo di screen nl, EFW 1784g (79ile); Twin1 nl mo di screen, EFW 1348g (11ile). [...] Jessica Naranjo MD at 09/01/2024 9:34 AM WIRE 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 Associated attestation - Jessica Naranjo MD - 09/01/2024 9:34 AM WIRE 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 Images from the original note were not [...] Asymptomatic. Continue inpatient management. Jessica Naranjo MD [facility] Division of Maternal- Medicine and Ultrasound Department of Obstetrics and Gynecology [facility] 09/01/2024 * Maggi Huang, LEO - 08/31/2024 4:01 PM CST Reason for Admission Pt (Suki Leon 1995) [...] for pt's to travel between home and [facility] to provide support. SW remains available. Maggi Huang MSW, INDUSTRIAL 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 Social Work 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 * Anastasia Plaza MD - 08/31/2024 6:46 AM CST Antepartum Progress Note Gestational Age: 31w2d Admission [...] x2, no LOF, VB, CTX - Denies HARRY, vision changes, SOB, chest pain, RUQ pain, new swelling changes. Review of Systems Negative except as per above OBJECTIVE Vitals: Temp: [36.7 ??C (98.1 ??F)-37 ??C (98.6 ??F)] 37 ??C (98.6 ??F) Pulse: [96-126] 114 Resp: [17-20] 18 BP: (118-140)/(69-94) 140/94 FHR: reactive NST x2 [place]: no regular contractions Physical Exam General: No [...] Thyroid studies WNL #Chronic headaches - Hx HARRY inside and outside of , previously on [...] aorta (0.75cm) (same as previous scan but twinsmoved positions) - s/p cardiology consult - plan for echo of twin B prior to discharge #lateral ventriculomegaly of twin B fUS 08/09: Twin A: vertex, normal MVP, Twin B: vertex, normal MVP, mild left sided ventriculomegaly,right difficult to visualize. - s/p NICU consult [...] Mo di screen nl, EFW 1784g (79ile); Twin1 nl mo di screen, EFW 1348g (11ile). [...] Nini Cortez MD at 08/31/2024 12:26 PM WIRE 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 Associated attestation - Nini Cortez MD - 08/31/2024 12:26 PM WIRE 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 MFM Attending Attestation I have seen and examined the patient, Suki Leon, on 08/31/2024 and I am in agreement with the plan as documented in the resident/fellow/CARLI's note. Stable from preE standpoint. Continue inpatient management. Nini Cortez MD 08/31/2024 * Maureen Calix MD - 08/30/2024 7:15 AM CST Antepartum Progress Note Gestational Age: 31w1d Admission Date: 07/29/2024 Length of stay: 32 Admission Diagnosis: preeclampsia with severe features otherwise affected by: Shay twins, Twin B with aortic root dilation and lateral ventriculomegaly, chronic headaches, Rh neg, dep/anxiety INTERVAL EVENTS - NAEON - normotensive with 1x MR BP SUBJECTIVE - good movement x2, no LOF, VB, CTX Denies HARRY, vision changes, SOB, chest pain, RUQ pain, new swelling changes. Review of Systems Negative except as per above OBJECTIVE Vitals: Temp: [36.7 ??C (98.1 ??F)-36.8 ??C (98.3 ??F)] 36.7 ??C (98.1 ??F) Pulse: [101-119] 105 Resp: [16-18] 16 BP: (132-137)/(75-92) 132/83 FHR: reactive NST x2 [place]: no regular contractions Physical Exam General: No [...] Thyroid studies WNL #Chronic headaches - Hx HARRY inside and outside of , previously on [...] aorta (0.75cm) (same as previous scan but twinsmoved positions) - s/p cardiology consult - plan for echo of twin B prior to discharge #lateral ventriculomegaly of twin B fUS 08/09: Twin A: vertex, normal MVP, Twin B: vertex, normal MVP, mild left sided ventriculomegaly,right difficult to visualize. - s/p NICU consult 08/10 #Depression/ Anxiety - Previously on SSRI, stable mood this with no meds #MO -BMI 47 #FWB: #Shay TIUP - BSUS Vertex/Vertex - Genetic screening: LR NIPT, neg carrier screening - Anatomy US: Shay Twins, no evidence of TAPS or TTTS - fUS 10/23: Twin 1 1348g (11%ile), Twin 2 1784g [...] Mo di screen nl, EFW 1784g (79ile); Twin1 nl mo di screen, EFW 1348g (11ile). [...] Nini Cortez MD at 08/30/2024 11:35 AM WIRE 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 Associated attestation - Nini Cortez MD - 08/30/2024 11:35 AM WIRE 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 MFM Attending Attestation I have seen and examined the patient, Suki Leon, on 08/30/2024 and I am in agreement with the plan as documented in the resident/fellow/CARLI's note. Nini Cortez MD 08/30/2024 * Fifi, Maureen Mancini MD - 08/29/2024 7:19 AM CST Antepartum Progress Note Gestational Age: 31w0d Admission Date: 07/29/2024 Length of stay: 31 Admission Diagnosis: preeclampsia with severe features otherwise affected by: Shay twins, Twin B with aortic root dilation and lateral ventriculomegaly, chronic headaches, Rh neg, dep/anxiety INTERVAL EVENTS - NAEON - normotensive with 2x MR BP SUBJECTIVE - good movement x2, no LOF, VB, CTX Denies HARRY, vision changes, SOB, chest pain, RUQ pain, new swelling changes. Review of Systems Negative except as per above OBJECTIVE Vitals: Temp: [36.6 ??C (97.8 ??F)-36.8 ??C (98.2 ??F)] 36.7 ??C (98 ??F) Pulse: [112-122] 113 Resp: [18] 18 BP: (123-145)/(75-92) 123/75 FHR: reactive NST x2 [place]: no regular contractions Physical Exam General: No [...] Thyroid studies WNL #Chronic headaches - Hx HARYR inside and outside of , previously on [...] aorta (0.75cm) (same as previous scan but twinsmoved positions) - s/p cardiology consult - plan for echo of twin B prior to discharge #lateral ventriculomegaly of twin B fUS 08/09: Twin A: vertex, normal MVP, Twin B: vertex, normal MVP, mild left sided ventriculomegaly,right difficult to visualize. - s/p NICU consult [...] Mo di screen nl, EFW 1784g (79ile); Twin1 nl mo di screen, EFW 1348g (11ile). [...] Nini Cortez MD at 08/29/2024 9:11 AM WIRE 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 Associated attestation - Nini Cortez MD - 08/29/2024 9:11 AM WIRE 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 MFM Attending Attestation I have seen and examined the patient, Suki Leon, on 08/29/2024 and I am in agreement with the plan as documented in the resident/fellow/CARLI's note. G1 at 31w0d who is admitted with preE with severe features. BP well controlled. Labs WNL. TTTS screen up to date. No issues today. Nini Cortez MD 08/29/2024 * Meena Khalil MD - 08/28/2024 5:16 PM CST R2 Update MD to bedside for ear [...] Meena Khalil MD PGY-2 Obstetrics & Gynecology 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 * Anastasia Plaza MD - 08/28/2024 6:26 AM CST Antepartum Progress Note Gestational Age: 30w6d Admission [...] movement x2, no LOF, VB, CTX Denies HARRY, vision changes, SOB, chest pain, RUQ pain, new swelling changes. Review of Systems Negative except as per above OBJECTIVE Vitals: Temp: [36.6 ??C (97.8 ??F)-36.8 ??C (98.3 ??F)] 36.8 ??C (98.3 ??F) Pulse: [88-121] 88 Resp: [16-18] 16 BP: (130-135)/(84-97) 135/86 FHR: reactive NST x2 [place]: no regular contractions Physical Exam General: No [...] Thyroid studies WNL #Chronic headaches - Hx HARRY inside and outside of , previously on [...] aorta (0.75cm) (same as previous scan but twinsmoved positions) - s/p cardiology consult - plan for echo of twin B prior to discharge #lateral ventriculomegaly of twin B fUS 08/09: Twin A: vertex, normal MVP, Twin B: vertex, normal MVP, mild left sided ventriculomegaly,right difficult to visualize. - s/p NICU consult [...] Kaela Mcallister MD at 08/28/2024 7:37 AM WIRE 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 Associated attestation - Kaela Mcallister MD - 08/28/2024 7:37 AM WIRE 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 I have seen and examined the patient on 08/28/24. I agree with the findings and plan of care as documented in the resident's/fellow's note.. 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 Review of Systems Negative except as per above OBJECTIVE Vitals: Temp: [36.7 ??C (98 ??F)-37.1 ??C (98.7 ??F)] 36.7 ??C (98 ??F) Pulse: [95-112] 95 Resp: [16-18] 18 BP: (125-135)/(69-93) 127/84 FHR: reactive NST x2 [place]: no regular contractions Physical Exam General: No [...] Thyroid studies WNL #Chronic headaches - Hx HARRY inside and outside of , previously on [...] aorta (0.75cm) (same as previous scan but twinsmoved positions) - s/p cardiology consult - plan for echo of twin B prior to discharge #lateral ventriculomegaly of twin B fUS 08/09: Twin A: vertex, normal MVP, Twin B: vertex, normal MVP, mild left sided ventriculomegaly,right difficult to visualize. - s/p NICU consult [...] Kaela Mcallister MD at 08/27/2024 8:46 AM WIRE 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 Associated attestation - Kaela Mcallister MD - 08/27/2024 8:46 AM WIRE 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 I have seen and examined the patient on 08/27/24. I agree with the findings and plan of care as documented in the resident's/fellow's note.. 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 Review of Systems Negative except as per above OBJECTIVE Vitals: Temp: [36.7 ??C (98 ??F)-37 ??C (98.6 ??F)] 36.7 ??C (98 ??F) Pulse: [90-110] 103 Resp: [16-18] 16 BP: (124-138)/(74-92) 127/82 FHR: reactive NST x2 [place]: no regular contractions Physical Exam General: No [...] Thyroid studies WNL #Chronic headaches - Hx HARRY inside and outside of , previously on [...] aorta (0.75cm) (same as previous scan but twinsmoved positions) - s/p cardiology consult - plan for echo of twin B prior to discharge #lateral ventriculomegaly of twin B fUS 08/09: Twin A: vertex, normal MVP, Twin B: vertex, normal MVP, mild left sided ventriculomegaly,right difficult to visualize. - s/p NICU consult [...] Byron Lakhani MD at 08/26/2024 1:03 PM WIRE 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 Associated attestation - Byron Lakhani MD - 08/26/2024 1:03 PM WIRE 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 I have seen and examined the patient on 08/26/24. I agree with the findings and plan of care as documented in the resident's/fellow's note.. * Anastasia Plaza MD - 08/25/2024 7:26 AM CST Antepartum Progress Note Gestational Age: 30w3d Admission [...] movement x2, no LOF, VB, CTX Denies HARRY, vision changes, SOB, chest pain, RUQ pain, new swelling changes. HARRY improved with meds for earache Excited for growth ultrasound today Review of Systems Negative except as per above OBJECTIVE Vitals: Temp: [36.5 ??C (97.7 ??F)-36.7 ??C (98.1 ??F)] 36.5 ??C (97.7 ??F) Pulse: [93-110] 110 Resp: [17-18] 18 BP: (129-139)/(81-90) 130/90 FHR: reactive NST x2 [place]: no regular contractions Physical Exam General: No acute distress. Lungs: Non-labored. Abdomen: Deferred Extremities: Warm and well-perfused. No bilateral lower extremity calf tenderness. Trace non pitting lower extremity edema Pelvic: Deferred. Neurologic: Deferred Lab Review: Recent Labs Lab Units 08/25/24 0608/22/24 0602 08/19/24 0625 WBC K/cumm 10.5* 12.2* 11.2* HEMOGLOBIN g/dL 11.4* 11.8* 11.3* HEMATOCRIT % 33.4* 34.4* 33.9* PLATELETS K/cumm 299 277 249 Recent Labs Lab Units 08/25/24 0608/22/24 0602 08/19/24 0625 SODIUM mmol/L 139 138 [...] Thyroid studies WNL #Chronic headaches - Hx HARRY inside and outside of , previously on [...] aorta (0.75cm) (same as previous scan but twinsmoved positions) - s/p cardiology consult - plan for echo of twin B prior to discharge #lateral ventriculomegaly of twin B fUS 08/09: Twin A: vertex, normal MVP, Twin B: vertex, normal MVP, mild left sided ventriculomegaly,right difficult to visualize. - s/p NICU consult [...] Byron Lakhani MD at 08/25/2024 10:24 AM WIRE 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 Associated attestation - Byron Lakhani MD - 08/25/2024 10:24 AM WIRE 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 I have seen and examined the patient on 08/25/24. I agree with the findings and plan of care as documented in the resident's/fellow's note.. * Maureen Calix MD - 08/24/2024 7:30 AM CST Antepartum Progress Note Gestational Age: 30w2d Admission Date: 07/29/2024 Length of stay: 26 Admission Diagnosis: preeclampsia with severe features otherwise affected by: Shay twins, Twin B with aortic root dilation and lateral ventriculomegaly, chronic headaches, Rh neg, dep/anxiety INTERVAL EVENTS - NAEON - normotensive to MR SUBJECTIVE - good movement x2, no LOF, VB, CTX Denies HARRY, vision changes, SOB, chest pain, RUQ pain, new swelling changes. HARRY improved with meds for earache Excited for growth ultrasound today Review of Systems Negative except as per above OBJECTIVE Vitals: Temp: [36.5 ??C (97.7 ??F)-36.9 ??C (98.5 ??F)] 36.5 ??C (97.7 ??F) Pulse: [93-112] 93 Resp: [16-18] 18 BP: (129-142)/(79-95) 139/84 FHR: reactive NST x2 [place]: no regular contractions Physical Exam General: No [...] Thyroid studies WNL #Chronic headaches - Hx HARRY inside and outside of , previously on [...] aorta (0.75cm) (same as previous scan but twinsmoved positions) - s/p cardiology consult - plan for echo of twin B prior to discharge #lateral ventriculomegaly of twin B fUS 08/09: Twin A: vertex, normal MVP, Twin B: vertex, normal MVP, mild left sided ventriculomegaly,right difficult to visualize. - s/p NICU consult [...] through Thursday 8a-7p APU R2 (first call) [phone] APU R3 (chief) [phone] Evenings 7p-8am Weekend Thursday 6pm through Thursday 8am Labor R2 (first call) [phone] Labor R4 (chief) [phone] Cosigned by Byron Lakhani MD at 08/24/2024 9:37 AM WIRE 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 Associated attestation - Byron Lakhani MD - 08/24/2024 9:37 AM WIRE 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 I have seen and examined the patient on 08/24/24. I agree with the findings and plan of care as documented in the resident's/fellow's note.. * Anastasia Plaza MD - 08/23/2024 7:26 AM CST Antepartum Progress Note Gestational Age: 30w1d Admission [...] BP: (128-139)/(78-90) 128/84 FHR: reactive NST x2 [place]: no regular contractions Physical Exam General: No [...] Thyroid studies WNL #Chronic headaches - Hx HARRY inside and outside of , previously on [...] aorta (0.75cm) (same as previous scan but twinsmoved positions) - s/p cardiology consult - plan for echo of twin B prior to discharge #lateral ventriculomegaly of twin B fUS 08/09: Twin A: vertex, normal MVP, Twin B: vertex, normal MVP, mild left sided ventriculomegaly,right difficult to visualize. - s/p NICU consult [...] breast - MOC: nexplanon - AC: SOLITARIO Plaza MD 08/23/24 Antepartum Service Coverage Thursday through Thursday 8a-7p APU R2 (first call) [phone] APU R3 (chief) [phone] Evenings 7p-8am Weekend Thursday 6pm through Thursday 8am Labor R2 (first call) [phone] Labor R4 (chief) [phone] Cosigned by Byron Lakhani MD at 08/23/2024 9:19 AM WIRE 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 Associated attestation - Byron Lakhani MD - 08/23/2024 9:19 AM WIRE 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 I have seen and examined the patient on 08/23/24. I agree with the findings and plan of care as documented in the resident's/fellow's note.. * Marge Castro, ELIO - 08/22/2024 2:45 PM CST Nutrition Screen Note Pt. Screened for nutritional [...] Adult Diet Regular Diet effective now Question: ([facility]) Diet type Answer: Regular 07/29/24 1220 Assessment / Impression: Met with patient at bedside. She reported good appetite and PO intake. Recommend weekly weights. RD will continue to monitor. Marge Castro MS, RD, [facility], Cell 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 * Millie Pierce LCSW - 08/22/2024 10:18 AM CST Reason for Admission Pt (Suki Kraft Leon [...] IOL 09/19 SW remains available. ARACELIS Tyler, LEO [facility] Clinical Police Communications Operator [facility] 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 * Anastasia Plaza MD - 08/22/2024 7:18 AM CST Antepartum Progress Note Gestational Age: 30w0d Admission [...] BP: (126-141)/(81-89) 134/89 FHR: reactive NST x2 [place]: no regular contractions Physical Exam General: No [...] Thyroid studies WNL #Chronic headaches - Hx HARRY inside and outside of , previously on [...] aorta (0.75cm) (same as previous scan but twinsmoved positions) - s/p cardiology consult - plan for echo of twin B prior to discharge #lateral ventriculomegaly of twin B fUS 08/09: Twin A: vertex, normal MVP, Twin B: vertex, normal MVP, mild left sided ventriculomegaly,right difficult to visualize. - s/p NICU consult [...] - AC: BID lovenox Anastasia Plaza MD 08/22/24 Antepartum Service Coverage Thursday through Thursday 8a-7p APU R2 (first call) [phone] APU R3 (chief) [phone] Evenings 7p-8am Weekend Thursday 6pm through Thursday 8am Labor R2 (first call) [phone] Labor R4 (chief) [phone] Cosigned by Byron Lakhani MD at 08/22/2024 9:45 AM WIRE 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 Associated attestation - Byron Lakhani MD - 08/22/2024 9:45 AM WIRE 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 I have seen and examined the patient on 08/22/24. I agree with the findings and plan of care as documented in the resident's/fellow's note.. * Maureen Calix MD - 08/21/2024 7:47 AM CST Antepartum Progress Note Gestational Age: 29w6d Admission Date: 07/29/2024 Length of stay: 23 Admission Diagnosis: preeclampsia with severe features otherwise affected by: Shay twins, Twin B with aortic root dilation and lateral ventriculomegaly, chronic headaches, Rh neg, dep/anxiety INTERVAL EVENTS - NAEON - normotensive to MR SUBJECTIVE Reports active movement x2. No vaginal bleeding/leakage of fluid/contractions. Denies HARRY, vision changes, SOB, chest pain, RUQ pain, new swelling changes. Ear pressure getting better with flonase, mucinex Review of Systems Negative except as per above. OBJECTIVE Vitals: Temp: [36.6 ??C (97.9 ??F)-36.9 ??C (98.4 ??F)] 36.7 ??C (98 ??F) Pulse: [93-139] 93 Resp: [18] 18 BP: (131-138)/(84-91) 131/84 FHR: reactive NST x2 [place]: no regular contractions Physical Exam General: No [...] Thyroid studies WNL #Chronic headaches - Hx HARRY inside and outside of , previously on [...] antibiotics #Aortic dilation of Fetus B - 10/23 Fetus A: Ascending/isthmus of aorta is mildly enlarged today on imaging. Aortic valve size measures within normal limits and peak systolic velocity measurements are within normal limits. Difficult to assess if aortic valve is bi or tri-leaflet. - echo Twin A 08/03: WNL - echo Twin B 08/03: mildly dilated ascending aorta (0.75cm) (same as previous scan but twinsmoved positions) - s/p cardiology consult - plan for echo of twin B prior to discharge #lateral ventriculomegaly of twin B fUS 08/09: Twin A: vertex, normal MVP, Twin B: vertex, normal MVP, mild left sided ventriculomegaly,right difficult to visualize. - s/p NICU consult [...] breast - MOC: [email or web address] Maureen Calix MD 08/21/24 Antepartum Service Coverage Thursday through Thursday 8a-7p APU R2 (first call) [phone] APU R3 (chief) [phone] Evenings 7p-8am Weekend Thursday 6pm through Thursday 8am Labor R2 (first call) [phone] Labor R4 (chief) [phone] Cosigned by Libby Berman MD at 08/21/2024 9:27 AM WIRE 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 Associated attestation - Libby Berman MD - 08/21/2024 9:27 AM WIRE 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 I have seen and examined the patient on 08/21/24. I agree with the findings and plan of care as documented in the resident's/fellow's note. and as discussed with the resident/fellow.. * Maureen Calix MD - 08/20/2024 5:56 AM CST Antepartum Progress Note Gestational Age: 29w5d Admission [...] x2. No vaginal bleeding/leakage of fluid/contractions. Denies HARRY, vision changes, SOB, chest pain, RUQ pain, new swelling changes. Review of Systems Negative except as per above. OBJECTIVE Vitals: Temp: [36.6 ??C (97.8 ??F)-36.9 ??C (98.4 ??F)] 36.7 ??C (98 ??F) Pulse: [88-120] 97 Resp: [16-18] 18 BP: (127-140)/(80-88) 140/88 FHR: reactive NST x2 [place]: no regular contractions Physical Exam General: No [...] Thyroid studies WNL #Chronic headaches - Hx HARRY inside and outside of , previously on [...] aorta (0.75cm) (same as previous scan but twinsmoved positions) - s/p cardiology consult - plan for echo of twin B prior to discharge #lateral ventriculomegaly of twin B fUS 08/09: Twin A: vertex, normal MVP, Twin B: vertex, normal MVP, mild left sided ventriculomegaly,right difficult to visualize. - s/p NICU consult [...] breast - MOC: nexplanon Maureen Calix MD 08/20/24 Antepartum Service Coverage Thursday through Thursday 8a-7p APU R2 (first call) [phone] APU R3 (chief) [phone] Evenings 7p-8am Weekend Thursday 6pm through Thursday 8am Labor R2 (first call) [phone] Labor R4 (chief) [phone] Cosigned by Leticia Barillas MD at 08/20/2024 7:16 AM WIRE 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 Associated attestation - Leticia Barillas MD - 08/20/2024 7:16 AM WIRE 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 I have personally seen and evaluated the patient, reviewed the documentation, and agree with the housestaff's assessment and plan. * Anastasia Plaza MD - 08/19/2024 6:52 AM CST Antepartum Progress Note Gestational Age: 29w4d Admission [...] x2. No vaginal bleeding/leakage of fluid/contractions. Denies HARRY, vision changes, SOB, chest pain, RUQ pain, new swelling changes. Review of Systems Negative except as per above. OBJECTIVE Vitals: Temp: [36.6 ??C (97.9 ??F)-36.8 ??C (98.2 ??F)] 36.6 ??C (97.9 ??F) Pulse: [88-120] 88 Resp: [18] 18 BP: (127-139)/(82-96) 127/82 FHR: reactive NST x2 [place]: no regular contractions Physical Exam General: No [...] Thyroid studies WNL #Chronic headaches - Hx HARRY inside and outside of , previously on [...] aorta (0.75cm) (same as previous scan but twinsmoved positions) - s/p cardiology consult - plan for echo of twin B prior to discharge #lateral ventriculomegaly of twin B fUS 08/09: Twin A: vertex, normal MVP, Twin B: vertex, normal MVP, mild left sided ventriculomegaly,right difficult to visualize. - s/p NICU consult [...] MOF: breast - MOC: teto Plaza MD 08/19/24 Antepartum Service Coverage Thursday through Thursday 8a-7p APU R2 (first call) [phone] APU R3 (chief) [phone] Evenings 7p-8am Weekend Thursday 6pm through Thursday 8am Labor R2 (first call) [phone] Labor R4 (chief) [phone] Cosigned by Leticia Barillas MD at 08/19/2024 9:49 AM WIRE 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 Associated attestation - Leticia Barillas MD - 08/19/2024 9:49 AM WIRE 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 I have personally seen and evaluated the patient, reviewed the documentation, and agree with the housestaff's assessment and plan. * Anastasia Plaza MD - 08/18/2024 7:04 AM CST Antepartum Progress Note Gestational Age: 29w3d Admission Date: 07/29/2024 Length of stay: 20 Admission Diagnosis: preeclampsia with severe features otherwise complicated by: Shay twins, Twin B with aortic root dilation and lateral ventriculomegaly, chronic headaches, Rh neg, dep/anxiety INTERVAL EVENTS - NAEON - largely normotensive, occasional mild range SUBJECTIVE No new problems. Reports active movement x2. No vaginal bleeding/leakage of fluid/contractions. Denies HARRY, vision changes, SOB, chest pain, RUQ pain, new swelling changes. Review of Systems Negative except as per above. OBJECTIVE Vitals: Temp: [36.7 ??C (98 ??F)-37 ??C (98.6 ??F)] 36.8 ??C (98.3 ??F) Pulse: [93-131] 115 Resp: [16-118] 16 BP: (124-141)/(73-83) 124/81 FHR: reactive NST x2 [place]: no regular contractions Physical Exam General: No acute distress. Appears stated age and cooperative. Lungs: Non-labored. Abdomen: Soft, non-tender, gravid. Extremities: Warm and well-perfused. No bilateral lower extremity calf tenderness. Trace non pitting lower extremity edema Pelvic: Deferred. Neurologic: Alert and oriented x4, non-focal Lab Review: Recent Labs Lab Units 11/12/24 0615 08/13/24 0544 WBC K/cumm 10.9* 12.4* [...] Thyroid studies WNL #Chronic headaches - Hx HARRY inside and outside of , previously on [...] aorta (0.75cm) (same as previous scan but twinsmoved positions) - s/p cardiology consult - plan for echo of twin B prior to discharge #lateral ventriculomegaly of twin B fUS 08/09: Twin A: vertex, normal MVP, Twin B: vertex, normal MVP, mild left sided ventriculomegaly,right difficult to visualize. - s/p NICU consult [...] through Thursday 8a-7p APU R2 (first call) [phone] APU R3 (chief) [phone] Evenings 7p-8am Weekend Thursday 6pm through Thursday 8am Labor R2 (first call) [phone] Labor R4 (chief) [phone] Cosigned by Leticia Barillas MD at 08/18/2024 5:08 PM WIRE 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 Associated attestation - Leticia Barillas MD - 08/18/2024 5:08 PM WIRE 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 I have personally seen and evaluated the patient, reviewed the documentation, and agree with the housestaff's assessment and plan. * Anastasia Plaza MD - 08/17/2024 6:15 AM CST Antepartum Progress Note Gestational Age: 29w2d Admission [...] x2. No vaginal bleeding/leakage of fluid/contractions. Denies HARRY, vision changes, SOB, chest pain, RUQ pain, new swelling changes. Review of Systems Negative except as per above. OBJECTIVE Vitals: Temp: [36.6 ??C (97.9 ??F)-36.7 ??C (98.1 ??F)] 36.6 ??C (97.9 ??F) Pulse: [99-117] 99 Resp: [16-18] 18 BP: (122-131)/(77-83) 131/77 FHR: reactive NST x2 [place]: no regular contractions Physical Exam General: No [...] studies ordered 08/16 #Chronic headaches - Hx HARRY inside and outside of , previously on [...] aorta (0.75cm) (same as previous scan but twinsmoved positions) - s/p cardiology consult - plan for echo of twin B prior to discharge #lateral ventriculomegaly of twin B fUS 08/09: Twin A: vertex, normal MVP, Twin B: vertex, normal MVP, mild left sided ventriculomegaly,right difficult to visualize. - s/p NICU consult [...] breast - MOC: nexplanon Anastasia Plaza MD 08/17/24 Antepartum Service Coverage Thursday through Thursday 8a-7p APU R2 (first call) [phone] APU R3 (chief) [phone] Evenings 7p-8am Weekend Thursday 6pm through Thursday 8am Labor R2 (first call) [phone] Labor R4 (chief) [phone] Cosigned by Leticia Barillas MD at 08/17/2024 8:25 AM WIRE 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 Associated attestation - Leticia Barillas MD - 08/17/2024 8:25 AM WIRE 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 I have personally seen and evaluated the patient, reviewed the documentation, and agree with the housestaff's assessment and plan. * Anastasia Plaza MD - 08/16/2024 7:18 AM CST Antepartum Progress Note Gestational Age: 29w1d Admission [...] x2. No vaginal bleeding/leakage of fluid/contractions. Denies HARRY, vision changes, SOB, chest pain, RUQ pain, new swelling changes. Review of Systems Negative except as per above. OBJECTIVE Vitals: Temp: [36.5 ??C (97.7 ??F)-36.8 ??C (98.2 ??F)] 36.7 ??C (98 ??F) Pulse: [98-118] 118 Resp: [16-18] 16 BP: (132-141)/(77-90) 132/78 FHR: reactive NST x2 [place]: no regular contractions Physical Exam General: No [...] studies ordered 08/16 #Chronic headaches - Hx HARRY inside and outside of , previously on [...] aorta (0.75cm) (same as previous scan but twinsmoved positions) - s/p cardiology consult - plan for echo of twin B prior to discharge #lateral ventriculomegaly of twin B fUS 08/09: Twin A: vertex, normal MVP, Twin B: vertex, normal MVP, mild left sided ventriculomegaly,right difficult to visualize. - s/p NICU consult [...] MOF: breast - MOC: teto Plaza MD 08/16/24 Antepartum Service Coverage Thursday through Thursday 8a-7p APU R2 (first call) [phone] APU R3 (chief) [phone] Evenings 7p-8am Weekend Lg 6pm through Thursday 8am Labor R2 (first call) [phone] Labor R4 (chief) [phone] Cosigned by Leticia Barillas MD at 08/16/2024 9:45 AM WIRE 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 Associated attestation - Leticia Barillas MD - 08/16/2024 9:45 AM WIRE 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 I have personally seen and evaluated the patient, reviewed the documentation, and agree with the housestaff's assessment and plan. * Millie Pierce LCSW - 08/15/2024 12:32 PM CST Reason for Admission Pt (Suki Leon 1995) [...] delivery SW remains available. ARACELIS Tyler, LEO [facility] Clinical Police Communications Operator [facility] 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 * Anastasia Plaza MD - 08/15/2024 7:17 AM CST Antepartum Progress Note Gestational Age: 29w0d Admission Date: 07/29/2024 Length of stay: 17 Admission Diagnosis: preeclampsia with severe features otherwise complicated by: Shay twins, Twin B with aortic root dilation and lateral ventriculomegaly, chronic headaches, Rh neg, dep/anxiety INTERVAL EVENTS - NAEON - reactive monitoring - largely normotensive, occasional mild range - Tachycardic to 120s, asymptomatic - Mild HARRY yesterday, resolving with APAP, reglan, and benadryl SUBJECTIVE No new problems. Reports active movement x2. No vaginal bleeding/leakage of fluid/contractions. Denies HARRY, vision changes, SOB, chest pain, RUQ pain, new swelling changes. Review of Systems Negative except as per above. OBJECTIVE Vitals: Temp: [36.6 ??C (97.9 ??F)-36.8 ??C (98.2 ??F)] 36.7 ??C (98.1 ??F) Pulse: [100-122] 116 Resp: [16-18] 17 BP: (117-137)/(69-90) 131/85 FHR: reactive NST x2 [place]: no regular contractions Physical Exam General: No [...] for BP control #Chronic headaches - Hx HARRY inside and outside of , previously on [...] aorta (0.75cm) (same as previous scan but twinsmoved positions) - s/p cardiology consult - plan for echo of twin B prior to discharge #lateral ventriculomegaly of twin B fUS 08/09: Twin A: vertex, normal MVP, Twin B: vertex, normal MVP, mild left sided ventriculomegaly,right difficult to visualize. - s/p NICU consult [...] MOD: TBD - MOF: breast - MOC: [email or web address] Anastasia Plaza MD 08/15/24 Antepartum Service Coverage Thursday through Thursday 8a-7p APU R2 (first call) [phone] APU R3 (chief) [phone] Evenings 7p-8am Weekend Thursday 6pm through Thursday 8am Labor R2 (first call) [phone] Labor R4 (chief) [phone] Cosigned by Leticia Barillas MD at 08/15/2024 8:57 AM WIRE 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 Associated attestation - Leticia Barillas MD - 08/15/2024 8:57 AM WIRE 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 I have personally seen and evaluated the patient, reviewed the documentation, and agree with the housestaff's assessment and plan. Continue inpatient monitoring. Headaches are typical for her and resolve. Intermittent Tachycardia with negative CT PE - ?.? Related to nifedipine but other etiologies like inappropriate sinus tach and thyroid disease. Will check TSH. * Mariela Dyson MD - 08/14/2024 7:13 AM CST Antepartum Progress Note Gestational Age: 28w6d Admission [...] x2. No vaginal bleeding/leakage of fluid/contractions. Denies HARRY, vision changes, SOB, chest pain, RUQ pain, new swelling changes. Review of Systems Negative except as per above. OBJECTIVE Vitals: Temp: [36.7 ??C (98 ??F)-36.9 ??C (98.4 ??F)] 36.9 ??C (98.4 ??F) Pulse: [104-134] 114 Resp: [16-18] 18 BP: (125-130)/(76-85) 128/85 FHR: reactive NST x2 [place]: no regular contractions Physical Exam General: No [...] aorta (0.75cm) (same as previous scan but twinsmoved positions) - s/p cardiology consult - plan for echo of twin B prior to discharge #lateral ventriculomegaly of twin B fUS 08/09: Twin A: vertex, normal MVP, Twin B: vertex, normal MVP, mild left sided ventriculomegaly,right difficult to visualize. - s/p NICU consult [...] TBD - MOF: breast - MOC: teto Voss MD Obstetrics and Gynecology PGY-3 08/14/24 Antepartum Service Coverage Thursday through Thursday 8a-7p APU R2 (first call) [phone] APU R3 (chief) [phone] Evenings 7p-8am Weekend Thursday 6pm through Thursday 8am Labor R2 (first call) [phone] Labor R4 (chief) [phone] Cosigned by Nini Knapp MD at 08/14/2024 7:19 AM WIRE 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 Associated attestation - Nini Knapp MD - 08/14/2024 7:19 AM WIRE 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 I have seen and examined the patient on 08/14/24. I agree with the findings and plan of care as documented in the resident's/fellow's note. Some new ear pain without other URI sypmtoms- will perform exam. * Nini Knapp MD - 08/13/2024 9:35 AM CST err 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 * Mariela Dyson MD - 08/13/2024 7:19 AM CST Antepartum Progress Note Gestational Age: 28w5d Admission [...] x2. No vaginal bleeding/leakage of fluid/contractions. Denies HARRY, vision changes, SOB, chest pain, RUQ pain, new swelling changes. Review of Systems Negative except as per above. OBJECTIVE Vitals: Temp: [36.6 ??C (97.9 ??F)-36.8 ??C (98.3 ??F)] 36.8 ??C (98.3 ??F) Pulse: [94-121] 121 Resp: [16-18] 18 BP: (121-139)/(73-85) 129/82 FHR: reactive NST x2 [place]: no regular contractions Physical Exam General: No [...] aorta (0.75cm) (same as previous scan but twinsmoved positions) - s/p cardiology consult - plan for echo of twin B prior to discharge #lateral ventriculomegaly of twin B fUS 08/09: Twin A: vertex, normal MVP, Twin B: vertex, normal MVP, mild left sided ventriculomegaly,right difficult to visualize. - s/p NICU consult [...] MOD: TBD - MOF: breast - MOC: nexplankhalida Voss MD Obstetrics and Gynecology PGY-3 11/09/24 Antepartum Service Coverage Thursday through Thursday 8a-7p APU R2 (first call) [phone] APU R3 (chief) [phone] Evenings 7p-8am Weekend Thursday 6pm through Thursday 8am Labor R2 (first call) [phone] Labor R4 (chief) [phone] Cosigned by Nini Knapp MD at 08/14/2024 7:15 AM WIRE 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 Associated attestation - Nini Knapp MD - 08/14/2024 7:15 AM WIRE 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 I have seen and examined the patient on 08/13/2024. I agree with the findings and plan of care as documented in the resident's/fellow's note.. 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 Reports active movement x2. No vaginal bleeding/leakage of fluid/contractions. Denies HARRY, vision changes, SOB, chest pain, RUQ pain, new swelling changes. Review of Systems Negative except as per above. OBJECTIVE Vitals: Temp: [36.5 ??C (97.7 ??F)-36.8 ??C (98.2 ??F)] 36.7 ??C (98.1 ??F) Pulse: [88-114] 100 Resp: [16-18] 16 BP: (123-137)/(77-89) 131/79 FHR: reactive NST x2 [place]: no regular contractions Physical Exam General: No [...] aorta (0.75cm) (same as previous scan but twinsmoved positions) - s/p cardiology consult - plan for echo of twin B prior to discharge #lateral ventriculomegaly of twin B fUS 08/09: Twin A: vertex, normal MVP, Twin B: vertex, normal MVP, mild left sided ventriculomegaly,right difficult to visualize. - s/p NICU consult [...] through Thursday 8a-7p APU R2 (first call) [phone] APU R3 (chief) [phone] Evenings 7p-8am Weekend Thursday 6pm through Thursday 8am Labor R2 (first call) [phone] Labor R4 (chief) [phone] Cosigned by Byron Lakhani MD at 08/12/2024 10:13 AM WIRE 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 Associated attestation - Byron Lakhani MD - 08/12/2024 10:13 AM WIRE 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 I have seen and examined the patient on 08/12/24. I agree with the findings and plan of care as documented in the resident's/fellow's note.. * Maureen Calix MD - 08/11/2024 7:13 AM CST Antepartum Progress Note Gestational Age: 28w3d Admission [...] x2. No vaginal bleeding/leakage of fluid/contractions. Denies HARRY, vision changes, SOB, chest pain, RUQ pain, new swelling changes. Review of Systems Negative except as per above. OBJECTIVE Vitals: Temp: [36.5 ??C (97.7 ??F)-36.8 ??C (98.2 ??F)] 36.5 ??C (97.7 ??F) Pulse: [94-120] 106 Resp: [16-18] 18 BP: (126-140)/(68-92) 140/84 FHR: reactive NST x2 [place]: no regular contractions Physical Exam General: No [...] aorta (0.75cm) (same as previous scan but twinsmoved positions) - s/p cardiology consult - plan for echo of twin B prior to discharge #lateral ventriculomegaly of twin B fUS 08/09: Twin A: vertex, normal MVP, Twin B: vertex, normal MVP, mild left sided ventriculomegaly,right difficult to visualize. - s/p NICU consult [...] PhD Obstetrics & Gynecology - PGY 2 08/11/24 Antepartum Service Coverage Thursday through Thursday 8a-7p APU R2 (first call) [phone] APU R3 (chief) [phone] Evenings 7p-8am Weekend Thursday 6pm through Thursday 8am Labor R2 (first call) [phone] Labor R4 (chief) [phone] Cosigned by Byron Lakhani MD at 08/11/2024 9:19 AM WIRE 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 MACHINE OPERATOR 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 MACHINE OPERATOR Associated attestation - Byron Lakhani MD - 08/11/2024 9:19 AM WIRE 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 MACHINE OPERATOR I have seen and examined the patient on 08/11/24. I agree with the findings and plan of care as documented in the resident's/fellow's note.. * Maureen Calix MD - 08/10/2024 6:00 AM CST Antepartum Progress Note Gestational Age: 28w2d Admission [...] movement. No vaginal bleeding/leakage of fluid/contractions. Denies HARRY, vision changes, SOB, chest pain, RUQ pain, new swelling changes. Review of Systems Negative except as per above. OBJECTIVE Vitals: Temp: [36.5 ??C (97.7 ??F)-36.8 ??C (98.2 ??F)] 36.5 ??C (97.7 ??F) Pulse: [97-111] 111 Resp: [18] 18 BP: (127-138)/(67-90) 135/71 FHR: reactive NST x2 [place]: no regular contractions Physical Exam General: No [...] aorta (0.75cm) (same as previous scan but twinsmoved positions) - s/p cardiology consult - plan for echo of twin B prior to discharge #lateral ventriculomegaly of twin B fUS 08/09: Twin A: vertex, normal MVP, Twin B: vertex, normal MVP, mild left sided ventriculomegaly,right difficult to visualize. #Depression/ Anxiety - Previously [...] through Thursday 8a-7p APU R2 (first call) [phone] APU R3 (chief) [phone] Evenings 7p-8am Weekend Thursday 6pm through Thursday 8am Labor R2 (first call) [phone] Labor R4 (chief) [phone] Cosigned by Byron Lakhani MD at 08/10/2024 8:54 AM WIRE 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 MACHINE OPERATOR 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 MACHINE OPERATOR 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 MACHINE OPERATOR Associated attestation - Byron Lakhani MD - 08/10/2024 8:54 AM WIRE STRAIGHTENING MACHINE OPERATOR I have seen and examined the patient on 08/10/24. I agree with the findings and plan of care as documented in the resident's/fellow's note.. NICU consult today or tomorrow * Maureen Calix MD - 08/09/2024 6:54 AM CST Antepartum Progress Note Gestational Age: 28w1d Admission [...] movement. No vaginal bleeding/leakage of fluid/contractions. Denies HARRY, vision changes, SOB, chest pain, RUQ pain, new swelling changes. Review of Systems Negative except as per above. OBJECTIVE Vitals: Temp: [36.5 ??C (97.7 ??F)-36.8 ??C (98.3 ??F)] 36.8 ??C (98.2 ??F) Pulse: [87-114] 101 Resp: [16-18] 16 BP: (123-146)/(77-90) 128/79 FHR: reactive NST x2 [place]: no regular contractions Physical Exam General: No [...] aorta (0.75cm) (same as previous scan but twinsmoved positions) - s/p cardiology consult - plan [...] through Thursday 8a-7p APU R2 (first call) [phone] APU R3 (chief) [phone] Evenings 7p-8am Weekend Thursday 6pm through Thursday 8am Labor R2 (first call) [phone] Labor R4 (chief) [phone] Cosigned by Byron Lakhani MD at 08/09/2024 10:16 AM WIRE STRAIGHTENING MACHINE OPERATOR STRAIGHTENING MACHINE OPERATOR STRAIGHTENING MACHINE OPERATOR STRAIGHTENING MACHINE OPERATOR Associated attestation - Byron Lakhani MD - 08/09/2024 10:16 AM WIRE STRAIGHTENING MACHINE OPERATOR I have seen and examined the patient on 08/09/24. I agree with the findings and plan of care as documented in the resident's/fellow's note.. * Carola Murphy - 08/08/2024 2:43 PM CST Chaplain Carola Murphy [facility] Spiritual Care Triage: [phone] 08/08/24 1400 Time Spent Start Time 1410 Stop Time 1420 Time Calculation (min) 10 min Patient Spiritual Assessment Spirituality Assessed Focus of Care Clinical Encounter Type Visited With Patient Response Type Routine visit Routine Visit Introduction Reason for visit Support Outcomes and Progress Demonstrating care and respect Achieved Interventions Interventions Offer emotional support;Offer spiritual/jain support STRAIGHTENING MACHINE OPERATOR * Millie Pierce LCSW - 08/08/2024 11:43 AM CST Reason for Admission Pt (Suki Leon 1995) was admitted on 07/29/2024 for Preeclampsia, unspecified trimester [O14.90]. Pt discussed in DCAM rounds with medical team. Per DCAM rounds, pt remains admitted to the APU due to ongoing medical needs. SW to follow for coping, adjustment to diagnosis as needed, and assess for social needs. SW remains available. ARACELIS Tyler, INDUSTRIAL MACHINE OPERATOR [facility] Clinical Police Communications Operator Women and Infants Units STRAIGHTENING MACHINE OPERATOR * Maureen Calix MD - 08/08/2024 6:36 AM CST Antepartum Progress Note Gestational Age: 28w0d Admission [...] movement. No vaginal bleeding/leakage of fluid/contractions. Denies HARRY, vision changes, SOB, chest pain, RUQ pain, new swelling changes. Needs FMLA paperwork completed Review of Systems Negative except as per above. OBJECTIVE Vitals: Temp: [36.6 ??C (97.8 ??F)-36.9 ??C (98.5 ??F)] 36.9 ??C (98.5 ??F) Pulse: [100-110] 100 Resp: [16-18] 16 BP: (133-149)/(74-91) 134/74 FHR: reactive NST x2 [place]: no regular contractions Physical Exam General: No [...] aorta (0.75cm) (same as previous scan but twinsmoved positions) - s/p cardiology consult - plan [...] Byron Lakhani MD at 08/08/2024 9:57 AM WIRE STRAIGHTENING MACHINE OPERATOR STRAIGHTENING MACHINE OPERATOR STRAIGHTENING MACHINE OPERATOR Associated attestation - Byron Lakhani MD - 08/08/2024 9:57 AM WIRE STRAIGHTENING MACHINE OPERATOR I have seen and examined the patient on 08/08/24. I agree with the findings and plan of care as documented in the resident's/fellow's note.. 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 construction sales representative availability) * Mariela Dyson MD - 08/07/2024 6:09 AM CST Antepartum Progress Note Gestational Age: 27w6d Admission Date: 07/29/2024 Length of stay: 9 Admission Diagnosis: preeclampsia with severe features otherwise complicated by: Shay twins, Twin B with aortic root dilation and lateral ventriculomegaly, chronic headaches, Rh neg, dep/anxiety INTERVAL EVENTS - NAEON - reactive monitoring - normotensive to mild range SUBJECTIVE No new problems. Reports active movement. No vaginal bleeding/leakage of fluid/contractions. Denies HARRY, vision changes, SOB, chest pain, RUQ pain, new swelling changes. Review of Systems Negative except as per above. OBJECTIVE Vitals: Temp: [36.6 ??C (97.8 ??F)-37 ??C (98.6 ??F)] 36.6 ??C (97.9 ??F) Pulse: [93-107] 93 Resp: [16-18] 18 BP: (129-142)/(77-82) 129/78 FHR: reactive NST x2 [place]: no regular contractions Physical Exam General: No [...] aorta (0.75cm) (same as previous scan but twinsmoved positions) - s/p cardiology consult - plan [...] Eve Jenkins MD at 08/07/2024 7:23 AM WIRE STRAIGHTENING MACHINE OPERATOR STRAIGHTENING MACHINE OPERATOR STRAIGHTENING MACHINE OPERATOR Associated attestation - Eve Jenkins MD - 08/07/2024 7:23 AM WIRE STRAIGHTENING MACHINE OPERATOR Attending Attestation I have seen, examined, and discussed Suki Salgadoth Edward with Dr. Voss on 08/07/2024. Iagree with the findings and the plan of care as documented. * Maureen Calix MD - 08/06/2024 6:29 AM CDT Antepartum Progress Note Gestational Age: 27w5d Admission [...] active movement. No vaginal bleeding/leakage of fluid/contractions. HARRY med responsive Denies vision changes, SOB, chest pain, RUQ pain, new swelling changes. Review of Systems Negative except as per above. OBJECTIVE Vitals: Temp: [36.6 ??C (97.9 ??F)-37 ??C (98.6 ??F)] 36.7 ??C (98.1 ??F) Pulse: [95-120] 102 Resp: [16-18] 18 BP: (115-138)/(67-90) 115/67 FHR: reactive NST x2 [place]: no regular contractions Physical Exam General: No [...] aorta (0.75cm) (same as previous scan but twinsmoved positions) - s/p cardiology consult - plan [...] and the plan of care as documented. * Marge Castro, ELIO - 08/05/2024 4:25 PM CDT Nutrition Screen Note Pt. Screened for nutritional [...] Adult Diet Regular Diet effective now Question: ([facility]) Diet type Answer: Regular 07/29/24 1220 Assessment / Impression: Met with patient at bedside. She reported good appetite and PO intake. Shereports pre- weight of 260#. Currently 284# as of 08/04. She is tolerating PNV. No nutrition needs identified at this time. RD will continue to monitor. Marge Castro MS, RD, [facility], Cell * Marge Conrad, - 08/05/2024 12:03 PM CDT Transfusion Medicine Blood Bank Note Patient Information: ABO/Rh: O negative Antibody screen: Positive Previous antibodies: No known antibodies Antibodies identified: passive anti-D Additional testing performed: None Relevant Patient History: Suki Leon is a 29 y.o. woman, at 27w3d, admitted for preeclampsia with severefeatures. The patient was given RhIg on 08/01/24. Testing Information: The antibody screen was positive. Antibody identification demonstrated antibodies against the D antigen in the patient's plasma. Additional testing was not performed. Detection of anti-D in this patient's plasma is consistent with the patient's known history of RhIgadministration on 08/01/24 and is therefore categorized as [...] future transfusions. Contact Information: Please contact the [facility] Transfusion Medicine Service at (option 1) with any questions. This report has been prepared by: Marge Conrad DO Cosigned by Pam Lr MD PhD at 08/06/2024 11:45 AM CDT Associated attestation - Pam Lr MD PhD - 08/06/2024 11:45 AM CDT Attestation: I have personally reviewed the antibody result and agree with the interpretation contained in this written blood bank report. Pam rL MD PhD * RustMaureen Mandujano MD - 08/05/2024 7:17 AM CDT Antepartum Progress Note Gestational Age: 27w4d Admission [...] BP: (132-144)/(77-94) 132/78 FHR: reactive NST x2 [place]: no regular contractions Physical Exam General: No [...] EKG/Min 110 BPM Atrial Rate 110 BPM [place]-Interval (MSEC) 122 ms QRS-Interval (MSEC) 78 ms QT-Interval (MSEC) 334 ms QTc 452 ms P Tiller 52 degrees R Tiller 5 degrees T Tiller 25 degrees Diagnosis Sinus tachycardia Otherwise normal ECG No previous ECGs available Confirmed by SAMANTA KAPLAN M.D ([id number]) on 08/04/2024 1:23:30 PM D-dimer, quantitative Collection Time: 08/04/24 6:28 PM Result Value Ref Range D-Dimer 1,101 (H) <=499 ng/mL [facility] Respiratory pathogen panel Nasopharyngeal Collection Time: 08/04/24 [...] aorta (0.75cm) (same as previous scan but twinsmoved positions) - s/p cardiology consult - plan [...] Blood pressures remain well controlled on nifedipine 90mg qD. Jessica Naranjo MD [facility] Division of Maternal- Medicine and Ultrasound Department of Obstetrics and Gynecology [facility] 08/05/2024 * Sue Meza MD - 08/04/2024 11:33 PM CDT MFM Update - delayed entry due to patient care Patient with persistent tachycardia s/p hydration and d-dimer >1000. Will order CT PE per protocol given meeting YEARS criteria. Sue Meza MD * Mariela Dyson MD - 08/04/2024 6:36 PM CDT R3 Update To bedside to evaluate patient [...] Mariela Voss MD Obstetrics and Gynecology PGY-3 * Maureen Calix MD - 08/04/2024 7:16 AM CDT Antepartum Progress Note Gestational Age: 27w3d Admission [...] BP: (122-139)/(72-85) 128/76 FHR: reactive NST x2 [place]: no regular contractions Physical Exam General: No [...] enlarged today on imaging. Aortic valve size measureswithin normal limits and peak systolic velocity measurements are within normal limits. Difficult toassess if aortic valve is bi or tri-leaflet. - echo Twin A 08/03: WNL - echo Twin B 08/03: mildly dilated ascending aorta (0.75cm) (same as previous scan but twinsmoved positions) - s/p cardiology consult - plan [...] TBD - MOF: breast - MOC: nexplanon Ali Fifi ARBOLEDA PhD Obstetrics & Gynecology - PGY 2 [...] complete anatomic survey with particular focus on FURNITURE [employer]ILDER anatomy of twin A today. Jessica Naranjo MD [facility] [employer] Division of Maternal- Medicine and Ultrasound Department of Obstetrics and Gynecology [facility] in [facility] 08/04/2024 * Maureen Calix MD - 08/03/2024 6:23 AM CDT Antepartum Progress Note Gestational Age: 27w2d Admission Date: 07/29/2024 Length of stay: 5 Admission Diagnosis: preeclampsia with severe features INTERVAL EVENTS - NAEON - reactive monitoring - normotensive to MR BPs - plan for anatomy US and echo x2 today SUBJECTIVE No new problems. Reports active movement. No vaginal bleeding/leakage of fluid/contractions. HARRY gone this morning, still medication responsive Denies vision changes, SOB, chest pain, RUQ pain, new swelling changes. Review of Systems Negative except as per above. OBJECTIVE Vitals: Temp: [36.6 ??C (97.8 ??F)-37 ??C (98.6 ??F)] 36.9 ??C (98.4 ??F) Pulse: [86-115] 90 Resp: [16-18] 16 BP: (128-143)/(77-98) 137/84 FHR: reactive NST x2 [place]: no regular contractions Physical Exam General: No [...] XL 90 mg qD. Jessica Naranjo MD [employer] Division of Maternal- Medicine and Ultrasound Department of Obstetrics and Gynecology [facility] 08/03/2024 * Maureen Calix MD - 08/02/2024 7:01 AM CDT Antepartum Progress Note Gestational Age: 27w1d Admission Date: 07/29/2024 Length of stay: 4 Admission Diagnosis: preeclampsia with severe features INTERVAL EVENTS - NAEON - reactive monitoring - normotensive to MR BPs SUBJECTIVE No new problems. Reports active movement. No vaginal bleeding/leakage of fluid/contractions. HARRY improved with APAP and compazine PRN Denies vision changes, SOB, chest pain, RUQ pain, new swelling changes. Review of Systems Negative except as per above. OBJECTIVE Vitals: Temp: [36.5 ??C (97.7 ??F)-36.9 ??C (98.4 ??F)] 36.5 ??C (97.7 ??F) Pulse: [80-107] 96 Resp: [18] 18 BP: (128-143)/(73-89) 128/84 FHR: reactive NST x2 [place]: no regular contractions Physical Exam General: No [...] TBD - MOF: breast - MOC: nexplanon Ali Fifi ARBOLEDA PhD Obstetrics & Gynecology - PGY 2 08/02/24 Cosigned by Jessica Naranjo MD at 08/02/2024 11:34 AM CDT Associated attestation - Jessica Naranjo MD - 08/02/2024 11:34 AM CDT Images from the original note were not included. MFM Attending Attestation I have seen and discussed Suki Salgadoneena Leon with the CARLI/resident/fellow on 08/02/2024. I [...] for MCDA twin . Jessica Naranjo MD [facility] [employer] Division of Maternal- Medicine and Ultrasound Department of Obstetrics and Gynecology [facility] in [facility] 08/02/2024 * Millie Pierce LCSW - 08/01/2024 12:34 PM CDT Reason for Admission Pt (Suki Leon 1995) was admitted on 07/29/2024 for Preeclampsia, unspecified trimester [O14.90]. Pt discussed in DCAM rounds with medical team. Per DCAM rounds, pt remains admitted to the APU due to ongoing medical needs. SW to follow for coping, adjustment to diagnosis as needed, and assess for social needs. ADD: Anticipated admission until delivery. SW remains available. ARACELIS Tyler, LEO [facility] Clinical Police Communications Operator Women and Infants Units * Maureen Calix MD - 08/01/2024 6:57 AM CDT Antepartum Progress Note Gestational Age: 27w0d Admission Date: 07/29/2024 Length of stay: 3 Admission Diagnosis: preeclampsia with severe features INTERVAL EVENTS - NAEON - reactive monitoring - mostly MR BPs, non sustained SR, increased NXL to 90mg - CBC/CMP WNL SUBJECTIVE No new problems. Reports active movement. No vaginal bleeding/leakage of fluid/contractions. HARRY this morning, trying compazine Denies vision changes, SOB, chest pain, RUQ pain, new swelling changes. Review of Systems Negative except as per above. OBJECTIVE Vitals: Temp: [36.7 ??C (98 ??F)-36.8 ??C (98.3 ??F)] 36.8 ??C (98.3 ??F) Pulse: [77-100] 100 Resp: [18] 18 BP: (138-162)/(80-95) 143/89 FHR: reactive NST x2 rare age appropriate variables, limited discontinuity [place]: no regular contractions Physical Exam General: No [...] Attestation I have seen and discussed Suki Abenaneena Leon with the CARLI/resident/fellow on 08/01/2024. I have evaluated the patient and reviewed the treatment plan and recommendations. I agree with the findings and the plan of care as documented in the note. Preeclampsia with severe features by severe range blood pressures. Increase in nifedipine XL dose to 90 mg today. Labs continue to be normal. Has chronic headaches that are responsive to medications;feels that they are consistent with her chronic headaches. Encouraged patient to notify the team for any headaches but especially those that feel different from her baseline as they may be more suggestive of a preeclampsia headache. Jessica Naranjo MD [facility] [employer] Division of Maternal- Medicine and Ultrasound Department of Obstetrics and Gynecology [facility] in [employer] 08/01/2024 * Maureen Calix MD - 07/31/2024 6:40 AM CDT Antepartum Progress Note Gestational Age: 26w6d Admission Date: 07/29/2024 Length of stay: 2 Admission Diagnosis: preeclampsia with severe features INTERVAL EVENTS - NAEON - reactive monitoring - >50% MR BPs, increased NXL to 60mg SUBJECTIVE No new problems. Reports active movement. No vaginal bleeding/leakage of fluid/contractions. Denies HARRY, vision changes, SOB, chest pain, RUQ pain, new swelling changes. Review of Systems Negative except as per above. OBJECTIVE Vitals: BP 139/85 Pulse 90 Temp 36.9 ??C (98.5 ??F) (Oral) Resp 16 Ht 165.1 cm (5' 5 ) LMP 01/19/2024 (Approximate) SpO2 98% BMI 47.26 kg/m?? FHR: reactive NST x2 rare variables with 1 hour reassuring monitoring afterwards [place]: no regular contractions Physical Exam General: No [...] based on newly elevated blood pressures & HARRY/ blurred vision changes unrelieved by APAP - presented to OSH with sustained severe range BP requiring L20 - Given 4g Mg bolus prior to transfer - Otherwise asymptomatic - BPs normotensive to mild range on arrival to [facility] since transfer - Will give APAP + compazine x1 for HARRY -Admission labs CBC Hgb 11.4 Plt 278 [...] care as documented in the resident's/fellow's note.. * Maureen Calix MD - 07/30/2024 6:52 AM CDT Antepartum Progress Note Gestational Age: 26w5d Admission Date: 07/29/2024 Length of stay: 1 Admission Diagnosis: preeclampsia with severe features INTERVAL EVENTS - NAEON - reactive monitoring - stopped Mag due to stable BPs, started [id number] - normotensive to infrequent MR BPs SUBJECTIVE No new problems. Reports active movement. No vaginal bleeding/leakage of fluid/contractions. Denies HARRY, vision changes, SOB, chest pain, RUQ pain, new swelling changes. Review of Systems Negative except as per above. OBJECTIVE Vitals: BP 127/67 Pulse 100 Temp 37.1 ??C (98.7 ??F) (Oral) Resp 16 Ht 165.1 cm (5' 5 ) LMP 01/19/2024 (Approximate) SpO2 93% BMI 47.26 kg/m?? FHR: reactive NST x2 [place]: no regular contractions Physical Exam General: No [...] based on newly elevated blood pressures & HARRY/ blurred vision changes unrelieved by APAP - presented to OSH with sustained severe range BP requiring L20 - Given 4g Mg bolus prior to transfer - Otherwise asymptomatic - BPs normotensive to mild range on arrival to [facility] since transfer - Will give APAP + compazine x1 for HARRY -Admission labs CBC Hgb 11.4 Plt 278 [...] care as documented in the resident's/fellow's note.. documented in this encounter H&P Notes * Ana M Rogers MD - 07/29/2024 4:20 AM CDT APU Admission Subjective Chief Complaint: Rule out preeclampsia with SF Estimated Date of Delivery: 10/31/24 HPI: Suki Leon is a 29 y.o. female at 26w4d gestation, dated by 1st trimester Ultrasound who is being admitted for rule out preeclampsia with severe features. Patient was seen last week and told to start monitoring BPs as they were newly elevated in clinic. She was monitoring her BPs which were noted to be mild range at home. She then developed a headache unrelieved by Tylenol which was unusual for her. She had [facility]. [facility]/95 > 166/89. She received IV Labetalol 20 mg and BPs subsequently improved to mild range. She was given 4g Mg bolus > 2g/hr and BMZ x1 prior to transfer. On arrival to [facility] patient reports headache/ blurred vision is markedly improved. Denies RUQ pain, n/v, CTX, VB, LOF. Patient has received consistent care from [facility] Antepartum History: Her has been complicated by Shay twins, new preeclampsia with SF, Rh neg, MO, VZV NI, anxiety/dep. 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 Pap History: No history of abnormal pap. STD History: none Past Medical History: Diagnosis Date Anxiety GERD (gastroesophageal reflux disease) IBS (irritable bowel syndrome) Migraine headache Obesity Chronic hypertension: no Diabetes: no Asthma: no Past Surgical History: Procedure Laterality Date CHOLECYSTECTOMY Social History Tobacco Use Smoking status: Never Smokeless tobacco: Never Substance and Sexual Activity Drug use: Never Comment: 2 drink tolerence, no mj, pills or drugs Sexual activity: Yes Alcohol Use: Not At Risk (07/28/2024) AUDIT-C Frequency of Alcohol Consumption: Never Average Number of Drinks: Patient does not drink Frequency of Binge Drinking: Never Safe at home: yes Family History Problem Relation Age of Onset [...] Conv) Cancer Neg Hx no colon 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 04/15/24 No Known Allergies Review of Systems All review of systems are negative except for HPI Objective Vitals: Arrival Vitals Temp 07/29/24 0253 36.3 ??C (97.4 ??F) Pulse 07/29/24 0249 97 Resp 07/29/24 0253 16 BP 07/29/24 0253 120/71 SpO2 07/29/24 0249 97 % Temp src 07/29/24 0253 Oral Heart Rate Source -- Patient Position -- BP Location -- FiO2 (%) -- 24hr Min/Max: Temp: [36.3 ??C (97.4 ??F)-36.6 ??C (97.8 ??F)] 36.3 ??C (97.4 ??F) Pulse: [89-104] 94 Resp: [16-18] 16 BP: (120-166)/(63-89) 120/71 Physical Exam: General: NAD, mood appropriate Pulmonary: non-labored Cardiovascular: Regular rate and rhythm Abdomen: Gravid, non-tender Extremities: Warm and well perfused Pelvic exam: deferred Cervix: deferred Monitoring: Twin A External monitor:, Baseline: 120 bpm, Variability: Moderate (Between 6 and 25 BPM), Accelerations: Acceleration 15x15, and Decelerations: None Twin B External monitor:, Baseline: 125 bpm, Variability: Moderate (Between 6 and 25 BPM), Accelerations: Acceleration 15x15, and Decelerations: None Uterine Activity: None Ultrasound: Vertex/Vertex presentation anterior placenta Previa: no Estimated Weight: fUS 07/27: Twin A 1054g (79%ile), Twin B 847g (20%ile) Lab/Radiology/Diagnostic Review: Lab Results Component Value Date ABORH O Negative 06/18/2024 IDCOOMB Negative ABSC 06/18/2024 [id number] Nonreactive 05/20/2024 LABRPR Nonreactive 05/20/2024 RUBELIGG Reactive 05/20/2024 HEPBSAG Nonreactive 05/20/2024 Laboratory review: Lab results in the last 24 hours: Recent Results (from the past 24 hour(s)) Comprehensive metabolic panel Collection Time: 07/28/24 10:30 PM Result Value Ref Range Sodium 135 135 - 145 mmol/L Potassium, pl 3.1 (L) 3.3 - 4.9 mmol/L Chloride 101 97 - 110 mmol/L CO2 20 (L) 22 - 32 mmol/L Anion gap 14 2 - 15 mmol/L BUN 5 (L) 6 - 25 mg/dL Creatinine 0.56 (L) 0.60 - 1.10 mg/dL Glucose 80 70 - 199 mg/dL Calcium 9.1 8.5 - 10.3 mg/dL Bilirubin, total 0.6 0.1 - 1.2 mg/dL Protein, pl 6.6 6.5 - 8.5 g/dL Albumin 3.4 (L) 3.5 - 5.0 g/dL Alk phos 67 40 - 130 Units/L ALT 19 7 - 45 Units/L AST 21 10 - 45 Units/L Protein / creatinine ratio, urine, random Collection Time: 07/28/24 10:30 PM Result Value Ref Range Protein, ur, quant 13.9 mg/dL Creatinine Ur 113.7 mg/dL Protein/creatinine ratio 122.3 0.0 - 180.0 mg/g CR CBC without differential Collection Time: 07/28/24 10:30 PM Result Value Ref Range WBC 9.3 3.8 - 9.9 K/cumm Hgb 11.4 (L) 11.9 - 15.5 g/dL Hct 33.6 (L) 35.6 - 45.5 % Plt 278 150 - 400 K/cumm MPV 10.0 9.1 - 12.3 fL RBC 3.85 (L) 3.90 - 5.20 M/cumm MCV 87.3 81.3 - 96.4 fL MCH 29.6 27.1 - 33.3 pg MCHC 33.9 32.3 - 35.7 g/dL RDW CV 13.8 11.1 - 14.9 % RDW SD 44.0 35.7 - 48.1 fL NRBC abs 0.00 0.00 - 0.01 K/cumm Urinalysis reflex to microscopic and culture Urine, clean voided Collection Time: 07/28/24 10:30 PM Specimen: Urine, clean voided Result Value Ref Range Color, ur Yellow Yellow Clarity, ur Clear Clear Specific gravity, ur 1.015 1.003 - 1.030 pH, urine 6.5 Protein, ur ql Negative Negative Glucose, ur ql Negative Negative Ketones, ur 1+ (A) Negative Bilirubin, ur Negative Negative Blood, ur Negative Negative Urobilinogen, ur <2.0 <2.0 mg/dL Nitrite, ur Negative Negative Leukocyte esterase, ur Negative Negative UA reflex comment Reflex conditions for microscopic UA and culture not met. Lactate dehydrogenase (LD) Collection Time: 07/28/24 10:30 PM Result Value Ref Range Lactate dehydrogenase (LDH) 163 100 - 250 Units/L Uric acid Collection Time: 07/28/24 10:30 PM Result Value Ref Range Uric acid 5.5 2.5 - 7.0 mg/dL eGFR Collection Time: 07/28/24 10:30 PM Result Value Ref Range eGFR >90 >=60 mL/min/1.73 m2 Plan 29 y.o. at 26w4d p/w newly diagnosed preeclampsia with SF #PreE w/SF - Dx based on newly elevated blood pressures & HARRY/ blurred vision changes unrelieved by APAP - presented to OSH with sustained severe range BP requiring L20 - Given 4g Mg bolus prior to transfer - Otherwise asymptomatic - BPs normotensive to mild range on arrival to [facility] since transfer - Will give APAP + compazine x1 for HARRY -Admission labs CBC Hgb 11.4 Plt 278 /CMP Cr 0.56 AST 21 ALT 19/UPC 0.122 -Repeat labs daily -Home regimen: None -24 hr spotting: L20 - Defer additional Mg bolus given HARRY now resolving and improvement in BPs to normotensive/ mild range #Shay Twins #Aortic dilation of Fetus A [...] - For Varivax #MO -BMI 47 #FWB: - BSUS Vertex/Vertex - Genetic screening: LR NIPT - Anatomy US: Shay Twins, no evidence of TAPS or TTTS - fUS 07/27: Twin A 1054g (79%ile), Twin B 847g (20%ile) - BMZ^07/30 @2330 - Mg @ 2g/hr - PCN deferred - peds consult ordered - MONITORING PLAN: cEFM > dNST #MWB - PNL: Rh Neg/Ab Neg/HIV NR/Rub Imm/RPR NR/HepB NR/GC/CT Not obtained/VZV Equiv - 1 hr GTT early 82 - 3T HIV to be obtained/RPR to be obtained - s/p flu vax 07/12/24, Tdap Needs - Rhogam Consider while inpatient - GBS To be obtained - MOD: TBD - MOF: TBD - MOC: TBD Ana M Rogers MD 07/29/24 Cosigned by Anastasia Amaro MD at 07/29/2024 6:37 AM CDT Associated attestation - Anastasia Amaro MD - 07/29/2024 6:37 AM CDT I have seen and examined the patient on 07/29/24. I agree with the findings and plan of care as documented in the resident's/fellow's note. and as discussed with the resident/fellow.. documented in this encounter Procedure Notes * Abigail Alberto MD - 09/20/2024 3:39 PM CST Procedures Nexplanon Insert Suki Leon is a 29 y.o. desiring Nexplanon insertion. PROCEDURE: Risks and benefits of nexplanon discussed. Informed consent obtained. Arm prepped and draped in sterile fashion. 3 mL of 1% lidocaine injected locally. Nexplanon placed without complication per [employer] founder's guidelines in the left upper arm. Bandaid placed with pressure dressing. Provider palpated Nexplanon device in place. Patient was able to palpate Nexplanon device. Impression and Plan: -Nexplanon placed without complication. Abigail Alberto MD 09/20/2024 Expiration 07/2026 Lot number [id number] STRAIGHTENING MACHINE OPERATOR * Francisca Yun MD - 09/18/2024 12:45 PM CST 29 y.o. at 33w6d Time on monitor: 1384-8883 Fetus A FHR Baseline: 120 Variability: moderate Reactive: Yes Decelerations: None Fetus B FHR Baseline: 130 Variability: moderate Reactive: Yes Decelerations: None Contractions: absent Comments: Reactive NST for Fetus A & B I have reviewed NST and instructed RN to take off monitor Meena Khalil MD PGY-2 Obstetrics & Gynecology MFM Fellow Attestation I have reviewed the tracing and agree with the interpretation as above. NST reactive and reassuringtejas Yun MD PGY7 Cosigned by Sandra Christy MD at 09/19/2024 3:20 PM WIRE STRAIGHTENING MACHINE OPERATOR STRAIGHTENING MACHINE OPERATOR STRAIGHTENING MACHINE OPERATOR STRAIGHTENING MACHINE OPERATOR * Joellen Schilling MD - 09/17/2024 2:58 PM CSTAssociated Order(s): nonstress test Pre-Procedure Diagnose(s): Preeclampsia, unspecified trimester; 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 Post-Procedure Diagnose(s): Preeclampsia, unspecified trimester; 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 nonstress test Date/Time: 09/17/2024 2:58 PM Performed by: Maureen Calix MD Authorized by: Ana M Rogers MD 29 y.o. at 33w5d Time on monitor: 0202-0282 Fetus A FHR Baseline: 125 Variability: moderate Reactive: Yes Decelerations: none Fetus B FHR Baseline: 130 Variability: moderate Reactive: Yes Decelerations: none Contractions: irregular, patient not feeling any Comments: reactive and reassuring NST I have reviewed NST and instructed RN to take off monitor Nadiya Calix MD PhD Obstetrics & Gynecology - PGY 2 MFM Fellow Attestation I have independently reviewed the monitoring noted above. I agree with the review of this tracing as described by the resident's note above. Joellen Schilling MD Maternal- Medicine Fellow Cosigned by Sandra Christy MD at 09/18/2024 9:19 AM WIRE STRAIGHTENING MACHINE OPERATOR STRAIGHTENING MACHINE OPERATOR STRAIGHTENING MACHINE OPERATOR STRAIGHTENING MACHINE OPERATOR * Joellen Schilling MD - 09/16/2024 2:44 PM CST Non-Stress Test Indication: scheduled NST Time on Monitor: 13:38-14:14 Twin A: FHR Baseline: 125 Variability: moderate Accelerations: yes, 15x15 Decelerations: none Reactive: Yes Contractions: absent Comments: Reactive and reassuring NST Twin B: FHR Baseline: 130 Variability: moderate Accelerations: yes, 15x15 Decelerations: none Reactive: Yes Contractions: absent Comments: Reactive and reassuring NST I have reviewed NST Joellen Schilling MD Maternal- Medicine Fellow Cosigned by Sandra Christy MD at 09/16/2024 2:51 PM WIRE STRAIGHTENING MACHINE OPERATOR STRAIGHTENING MACHINE OPERATOR STRAIGHTENING MACHINE OPERATOR Associated attestation - Sandra Christy MD - 09/16/2024 2:51 PM WIRE STRAIGHTENING MACHINE OPERATOR I have reviewed the tracing and the interpretation. I agree with the findings. Sandra Christy MD IN Maternal- Medicine * Joellen Schilling MD - 09/15/2024 3:33 PM CST Non-Stress Test Indication: scheduled NST Time on Monitor: 10:53-12:58 Twin A: FHR Baseline: 125 Variability: moderate Accelerations: yes, 15x15 Decelerations: none Reactive: Yes Contractions: absent Comments: Reactive and reassuring NST Twin B: FHR Baseline: 130 Variability: moderate Accelerations: yes, 15x15 Decelerations: none Reactive: Yes Contractions: absent Comments: Reactive and reassuring NST I have reviewed NST Joellen Schilling MD Maternal- Medicine Fellow STRAIGHTENING MACHINE OPERATOR * Anastasia Plaza MD - 09/14/2024 5:08 PM CST Procedures 29 y.o. at 33w1d a/f preeclampsia with SF A: FHR Baseline: 125 Variability: moderate Reactive: Yes B: FHR Baseline: 125 Variability: moderate Reactive: Yes Contractions: Irregular, painless Comments: Prolonged monitoring given reassuring but initially not reactive tracing of twin A. Reactive from 16:47-17:07 I have reviewed NST and instructed RN to take off monitor Anastasia Plaza MD Cosigned by Sandra Christy MD at 09/14/2024 7:29 PM WIRE STRAIGHTENING MACHINE OPERATOR STRAIGHTENING MACHINE OPERATOR STRAIGHTENING MACHINE OPERATOR Associated attestation - Snadra Christy MD - 09/14/2024 7:29 PM WIRE STRAIGHTENING MACHINE OPERATOR I have reviewed the tracing and the interpretation. I agree with the findings. Sandra Christy MD MS Maternal- Medicine * Avery Veloz MD - 09/13/2024 5:13 PM CST Procedures NST Progress Note 29 y.o. at 33w1d admitted for PreEwSF Time on monitor: 1649-4793 Twin A: FHR Baseline: 125bpm Variability: moderate Accelerations: present Decelerations: none Twin B: FHR Baseline: 130bpm Variability: moderate Accelerations: present Decelerations: none Contractions: absent Reactive: Yes Comments: reactive and reassuring Instructed RN that patient can be taken off the monitor. Rey Quinonez MD I agree with NST as documented above. Avery Veloz MD Maternal Medicine Fellow Department of Obstetrics and Gynecology, PGY-6 Cosigned by Sandra Christy MD at 09/14/2024 7:28 PM WIRE STRAIGHTENING MACHINE OPERATOR STRAIGHTENING MACHINE OPERATOR STRAIGHTENING MACHINE OPERATOR STRAIGHTENING MACHINE OPERATOR * Anastasia Plaza MD - 09/13/2024 5:10 PM CSTAssociated Order(s): NONSTRESS TEST 29 y.o. at 33w1d a/f preeclampsia with SF A FHR Baseline: 125>130>125 Variability: moderate Reactive: Yes B FHR Baseline: 130 Variability: moderate Reactive: Yes Contractions: absent Comments: Prolonged monitoring given periods of reassuring but non-reactive tracing, reactive from 16:50-17:10 I have reviewed NST and instructed RN to take off monitor Anastasia Plaza MD Cosigned by Sandra Christy MD at 09/14/2024 7:28 PM WIRE STRAIGHTENING MACHINE OPERATOR STRAIGHTENING MACHINE OPERATOR STRAIGHTENING MACHINE OPERATOR Associated attestation - Sandra Christy MD - 09/14/2024 7:28 PM WIRE STRAIGHTENING MACHINE OPERATOR I have reviewed the tracing and the interpretation. I agree with the findings. Sandra Christy MD MS Maternal- Medicine * Rey Quinonez MD - 09/12/2024 4:51 PM CST Procedures NST Progress Note 29 y.o. at 33w0d admitted for PreEwSF Time on monitor: 8487-7586 Twin A: FHR Baseline: 125 Variability: moderate Accelerations: present Decelerations: none Twin B: FHR Baseline: 130 Variability: moderate Accelerations: present Decelerations: none Contractions: absent Reactive: Yes Comments: reactive and reassuring Instructed RN that patient can be taken off the monitor. Rey Quinonez MD Cosigned by Sandra Christy MD at 09/13/2024 5:07 PM WIRE STRAIGHTENING MACHINE OPERATOR STRAIGHTENING MACHINE OPERATOR STRAIGHTENING MACHINE OPERATOR Associated attestation - Sandra Christy MD - 09/13/2024 5:07 PM WIRE STRAIGHTENING MACHINE OPERATOR I have reviewed the tracing and the interpretation. I agree with the findings. Sandra Christy MD MS Maternal- Medicine * Judi Huang MD - 09/11/2024 2:39 PM CST Procedures 29 y.o. at 32w6d Time on monitor: 0857-1211 Fetus A FHR Baseline: 125 Variability: moderate Reactive: Yes Decelerations: none Fetus B FHR Baseline: 135 Variability: moderate Reactive: Yes Decelerations: none Contractions: absent Comments: reactive and reassuring I have reviewed NST and instructed RN to take off monitor Judi Huang MD Cosigned by Sara Eng MD at 09/11/2024 4:07 PM WIRE STRAIGHTENING MACHINE OPERATOR STRAIGHTENING MACHINE OPERATOR STRAIGHTENING MACHINE OPERATOR Associated attestation - Sara Eng MD - 09/11/2024 4:07 PM WIRE STRAIGHTENING MACHINE OPERATOR Attending Attestation - nonstress test I have reviewed the NST of Suki Leon myself. I agree with the interpretation as documented in the resident???s note. Sara Eng MD 09/11/2024 * Mariela Dyson MD - 09/10/2024 2:42 PM CST Procedures 29 y.o. at 32w5d Time on monitor: 7400-6461 Fetus A FHR Baseline: 120 Variability: moderate Reactive: Yes Decelerations: none Fetus B FHR Baseline: 130 Variability: moderate Reactive: Yes Decelerations: none Contractions: absent Comments: reactive and reassuring I have reviewed NST and instructed RN to take off monitor Mariela Voss MD Cosigned by Nini Cortez MD at 09/10/2024 3:14 PM WIRE STRAIGHTENING MACHINE OPERATOR STRAIGHTENING MACHINE OPERATOR STRAIGHTENING MACHINE OPERATOR Associated attestation - Nini Cortez MD - 09/10/2024 3:14 PM WIRE STRAIGHTENING MACHINE OPERATOR I have independently reviewed the NSTx2 and agree with the documentation. Nini Cortez MD 09/10/2024 * Sara Eng MD - 09/09/2024 1:33 PM CST Procedures Electronic Monitoring/Non-Stress Test Date: 09/09/2024 Time: 9816-9231 Suki Leon is a 29 y.o. female at 32w4d gestation Twin A FHR Baseline: 125 Variability: moderate Accelerations: present Decelerations: absent Contractions: absent Reactive: Yes Comments: reassuring Twin B FHR Baseline: 130 Variability: moderate Accelerations: present Decelerations: absent Contractions: absent Reactive: Yes Comments: reassuring Attending Attestation - nonstress test I have reviewed the NST of Suki Leon myself. I agree with the interpretation as documented in the resident???s note. Sara Eng MD 09/09/2024 STRAIGHTENING MACHINE OPERATOR * Sara Eng MD - 09/08/2024 2:22 PM CST Electronic Monitoring/Non-Stress Test Date: 09/08/2024 Time: 7409-9198 Suki Leon is a 29 y.o. female at 32w3d gestation Twin A FHR Baseline: 115, baseline change to 120 Variability: moderate Accelerations: present Decelerations: absent Contractions: absent Reactive: Yes Comments: reassuring Twin B FHR Baseline: 125 Variability: moderate Accelerations: present, at 1321 & 1336 Decelerations: absent Contractions: absent Reactive: Yes Comments: reassuring Attending Attestation - nonstress test I have reviewed the NST of Suki Leon myself. I agree with the interpretation as documented in the resident???s note. Sara Eng MD 09/08/2024 STRAIGHTENING MACHINE OPERATOR * Sara Eng MD - 09/08/2024 1:39 PM CST Procedures Electronic Monitoring/Non-Stress Test Date: 09/08/2024 Time: 7795-7408 Suki Leon is a 29 y.o. female at 32w3d gestation Twin A FHR Baseline: 115, baseline change to 120 Variability: moderate Accelerations: present Decelerations: absent Contractions: absent Reactive: Yes Comments: reassuring Twin B FHR Baseline: 125 Variability: moderate Accelerations: present, at 1321 & 1336 Decelerations: absent Contractions: absent Reactive: Yes Comments: reassuring I have reviewed NST and instructed RN to take off monitor CORBY Ashton STRAIGHTENING MACHINE OPERATOR STRAIGHTENING MACHINE OPERATOR * Sara Eng MD - 09/08/2024 12:09 PM CST Procedures: NST Suki Leon is a 29 y.o. female at 32w2d gestation Twin A FHR Baseline: 125 Variability: moderate Accelerations: present, at 1024, 1032, 1041 Decelerations: absent Contractions: absent Reactive: Yes Comments: reassuring Twin B FHR Baseline: 130 Variability: moderate Accelerations: present Decelerations: absent Contractions: absent Reactive: Yes Comments: reassuring Attending Attestation - nonstress test I have reviewed the NST of Suki Leon myself. I agree with the interpretation as documented in the resident???s note. Sara Eng MD 09/08/2024 STRAIGHTENING MACHINE OPERATOR * Millicent Duran NP - 09/07/2024 12:17 PM CST Procedures Electronic Monitoring/Non-Stress Test Date: 09/07/2024 Time: 9699-4805 Suki Leon is a 29 y.o. female at 32w2d gestation Twin A FHR Baseline: 125 Variability: moderate Accelerations: present, at 1024, 1032, 1041 Decelerations: absent Contractions: absent Reactive: Yes Comments: reassuring Twin B FHR Baseline: 130 Variability: moderate Accelerations: present Decelerations: absent Contractions: absent Reactive: Yes Comments: reassuring I have reviewed NST and instructed RN to take off monitor CORBY Ashton Cosigned by Sara Eng MD at 09/08/2024 12:09 PM WIRE STRAIGHTENING MACHINE OPERATOR STRAIGHTENING MACHINE OPERATOR STRAIGHTENING MACHINE OPERATOR * Pauline Simms MD - 09/06/2024 8:38 PM CSTAssociated Order(s): NONSTRESS TEST Baby A FHR Baseline: 125 Variability: moderate Accelerations: absent Decelerations: absent in last part of tracing, was initially having small variable decels in monitoring Reactive: Yes Baby B FHR Baseline: 130 Variability: moderate Accelerations: present Decelerations: absent Reactive: Yes 29 y.o. at 32w1d a/f preeclampsia with SF On monitor 4544-3552 Contractions: absent I have reviewed NST and instructed RN to take off monitor Pauline Simms MD Cosigned by Anastasia Amaro MD at 09/07/2024 7:29 AM WIRE STRAIGHTENING MACHINE OPERATOR STRAIGHTENING MACHINE OPERATOR STRAIGHTENING MACHINE OPERATOR Associated attestation - Anastasia Amaro MD - 09/07/2024 7:29 AM WIRE STRAIGHTENING MACHINE OPERATOR Attending Attestation - nonstress test I have reviewed the NST of Suki Leon myself. I agree with the interpretation as documented in the resident???s note. Anastasia Amaro MD 09/07/2024 * Sara Eng MD - 09/05/2024 4:21 PM CST Procedures NONSTRESS TEST Suki Leon is a 29 y.o. here today at 32.0 weeks gestation in the setting of preeclampsia. Time Monitored: 5098-3838 FHR Baseline: A: 135 B:135 Variability: A: mod B: mod Accelerations: A: present B: present Decelerations: A: absent B: absent Contractions: Pt reports feeling no UC; rare UC noted by toco; abdomen soft to palpation Reactive: Yes MFM Fellow Attestation I have reviewed the tracing and agree with the interpretation as above. NST reactive and reassuring. Sara Eng MD STRAIGHTENING MACHINE OPERATOR * Sara Eng MD - 09/05/2024 3:53 PM CST Procedures NONSTRESS TEST Suki Leon is a 29 y.o. here today at 32.0 weeks gestation in the setting of preeclampsia. Time Monitored: 9981-3519 FHR Baseline: A: 135 B:135 Variability: A: mod B: mod Accelerations: A: present B: present Decelerations: A: absent B: absent Contractions: Pt reports feeling no UC; rare UC noted by toco; abdomen soft to palpation Reactive: Yes I have reviewed the NST. Tash Mathew CNM STRAIGHTENING MACHINE OPERATOR STRAIGHTENING MACHINE OPERATOR * Joellen Julio MD - 09/04/2024 12:14 PM CST Twin A FHR Baseline: 130 Variability: moderate Reactive: Yes Decelerations: no Twin B FHR Baseline: 130-135 Variability: moderate Reactive: Yes Decelerations: no Contractions: absent Reactive from 1152 to 1213. I have reviewed the NST and instructed the RN to take the patient off the monitor. Erick Castañeda MD 12:14 PM MFM Fellow Attestation I have reviewed the NST and agree with the resident's assessment as above. Reactive and reassuring NSTs x2. Joellen Julio MD STRAIGHTENING MACHINE OPERATOR STRAIGHTENING MACHINE OPERATOR * Joellen Schilling MD - 09/03/2024 11:34 AM CST 29 y.o. at 31w5d Time on monitor: 7534-5685 Fetus A FHR Baseline: 120 Variability: moderate Reactive: Yes Decelerations: none Fetus B FHR Baseline: 125 Variability: moderate Reactive: Yes Decelerations: none Contractions: absent Comments: Reactive NST for Fetus A & B I have reviewed NST and instructed RN to take off monitor Meena Khalil MD PGY-2 Obstetrics & Gynecology MFM Fellow Attestation I have independently reviewed the monitoring noted above. I agree with the review of this tracing as described by the resident's note above. Joellen Schilling MD Maternal- Medicine Fellow Cosigned by Josefina Peter MD at 09/09/2024 1:38 AM WIRE STRAIGHTENING MACHINE OPERATOR STRAIGHTENING MACHINE OPERATOR STRAIGHTENING MACHINE OPERATOR STRAIGHTENING MACHINE OPERATOR * Joellen Julio MD - 09/02/2024 10:59 AM CST Procedures 29 y.o. at 31w4d admitted for preEwSF. Time on monitor: 1019 to 1057 Fetus A FHR Baseline: 120 Variability: moderate Reactive: Yes Decelerations: none Fetus B FHR Baseline: 130 Variability: moderate Reactive: Yes Decelerations: none Contractions: absent Comments: reassuring/reactive NST for Shay I have reviewed NST and instructed RN to take off monitor. Ashley Melendez MD MPH PGY2 OBGYN MFM Fellow Attestation I have reviewed the NST and agree with the resident's assessment as above. Reactive and reassuring x2. Joellen Julio MD STRAIGHTENING MACHINE OPERATOR STRAIGHTENING MACHINE OPERATOR * Joellen Schilling MD - 09/01/2024 4:00 PM CST Non-Stress Test Indication: scheduled NST Time on Monitor: 15:35-16:03 Twin A: FHR Baseline: 130 Variability: moderate Accelerations: yes, 10x10 Decelerations: none Reactive: Yes Contractions: absent Comments: Reactive and reassuring NST Twin B: FHR Baseline: 130 Variability: moderate Accelerations: yes, 10x10 Decelerations: none Reactive: Yes Contractions: absent Comments: Reactive and reassuring NST I have reviewed NST Joellen Schilling MD Maternal- Medicine Fellow Cosigned by Jessica Naranjo MD at 09/02/2024 9:09 AM WIRE STRAIGHTENING MACHINE OPERATOR STRAIGHTENING MACHINE OPERATOR STRAIGHTENING MACHINE OPERATOR Associated attestation - Jessica Naranjo MD - 09/02/2024 9:09 AM WIRE STRAIGHTENING MACHINE OPERATOR Images from the original note were not included. MFM Attending Attestation I independently evaluated the twin NST for Suki Leon performed on 09/01/24 as documented by the fellow. I agree with the documentation. Reactive and reassuring NST for twins. Jessica Naranjo MD [facility] Division of Maternal- Medicine and Ultrasound Department of Obstetrics and Gynecology [facility] * Anastasia Plaza MD - 08/31/2024 1:32 PM CST Procedures 29 y.o. at 31w2d a/f preeclampsia with SF A FHR Baseline: 130 Variability: moderate Reactive: Yes B FHR Baseline: 135 Variability: moderate Reactive: Yes Contractions: absent Comments: 12:32-13:02 I have reviewed NST and instructed RN to take off monitor Anastasia Plaza MD Cosigned by Nini Cortez MD at 08/31/2024 3:10 PM WIRE STRAIGHTENING MACHINE OPERATOR STRAIGHTENING MACHINE OPERATOR STRAIGHTENING MACHINE OPERATOR Associated attestation - Nini Cortez MD - 08/31/2024 3:10 PM WIRE STRAIGHTENING MACHINE OPERATOR I have independently reviewed the NSTx2 and agree with the documentation. Nini Cortez MD 08/31/2024 * Maureen Calix MD - 08/30/2024 2:48 PM CST Procedures 29 y.o. at 31w1d a/f preeclampsia with SF. Also with Shay twins Time on monitor: 7166-2091 Fetus A FHR Baseline: 135 Variability: moderate Reactive: Yes Decelerations: discontinuity 1426 unwitnessed, unlikely but possible decel Fetus B FHR Baseline: 140 Variability: moderate Reactive: Yes Decelerations: none Contractions: absent Comments: reactive and reassuring NST, discontinuity with possible decel for A at 1426 with subsequent reactive NST. I have reviewed NST and instructed RN to take off monitor Nadiya Calix MD PhD Obstetrics & Gynecology - PGY 2 08/30/2024 Cosigned by Nini Cortez MD at 08/30/2024 4:16 PM WIRE STRAIGHTENING MACHINE OPERATOR STRAIGHTENING MACHINE OPERATOR STRAIGHTENING MACHINE OPERATOR STRAIGHTENING MACHINE OPERATOR Associated Nini Ramos MD - 08/30/2024 4:16 PM WIRE STRAIGHTENING MACHINE OPERATOR I have independently reviewed the NSTx2 and agree with the documentation. Nini Cortez MD 08/30/2024 * Maureen Calix MD - 08/29/2024 2:32 PM CSTAssociated Order(s): nonstress test Post-Procedure Diagnose(s): 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; Preeclampsia, unspecified trimester nonstress test Date/Time: 08/29/2024 2:32 PM Performed by: Maureen Calix MD Authorized by: Ana M Rogers MD 29 y.o. at 31w0d a/f preeclampsia with SF and Shay twins Time on monitor: 6658-2366 Fetus A FHR Baseline: 130 Variability: moderate Reactive: Yes Decelerations: none Fetus B FHR Baseline: 135 Variability: moderate Reactive: Yes Decelerations: none Contractions: absent Comments: reactive and reassuring NST I have reviewed NST and instructed RN to take off monitor Nadiya Calix MD PhD Obstetrics & Gynecology - PGY 2 08/29/2024 Cosigned by Nini Cortez MD at 08/29/2024 9:00 PM WIRE STRAIGHTENING MACHINE OPERATOR STRAIGHTENING MACHINE OPERATOR STRAIGHTENING MACHINE OPERATOR Associated lindsay - Nini Cortez MD - 08/29/2024 9:00 PM WIRE STRAIGHTENING MACHINE OPERATOR I have independently reviewed the NSTx2 and agree with the documentation. Nini Cortez MD 08/29/2024 * Francisca Yun MD - 08/28/2024 7:47 PM CSTAssociated Order(s): NONSTRESS TEST A FHR Baseline: 120 Variability: moderate Reactive: Yes Contractions: absent B FHR Baseline: 130 Variability: moderate Reactive: Yes Contractions: absent Comments: No decels x2 I have reviewed NST and instructed RN to take off monitor Francisca Yun MD Cosigned by Nini Cortez MD at 08/29/2024 10:17 AM WIRE STRAIGHTENING MACHINE OPERATOR STRAIGHTENING MACHINE OPERATOR STRAIGHTENING MACHINE OPERATOR Associated attestation - Nini Cortez MD - 08/29/2024 10:17 AM WIRE STRAIGHTENING MACHINE OPERATOR I have independently reviewed the NSTx2 and agree with the documentation. Nini Cortez MD 08/29/2024 * Natalie Botello MD - 08/27/2024 2:15 PM CST Procedures 29 y.o. at 30w5d who is admitted for PreEwSF. Time on monitor: 2403-4593 Fetus A FHR Baseline: 125>135 Variability: moderate Accerlations: present Decelerations: none Fetus B FHR Baseline: 135 Variability: moderate Reactive: Yes Decelerations: none Contractions: absent Comments: Discontinuity of twin B, but overall reactive and reassuring. I have reviewed NST and instructed RN to take off monitor Ashley Peters MD Obstetrics & Gynecology, PGY-2 MFM Fellow Attestation I have reviewed the tracing and agree with the interpretation as above. NST reactive and reassuring. Natalie Botello MD Maternal Medicine, Fellow Cosigned by Kaela Mcallister MD at 08/28/2024 6:56 AM WIRE STRAIGHTENING MACHINE OPERATOR STRAIGHTENING MACHINE OPERATOR STRAIGHTENING MACHINE OPERATOR STRAIGHTENING MACHINE OPERATOR * Millicent Duran NP - 08/26/2024 11:13 AM CST Procedures Electronic Monitoring/Non-Stress Test Date: 08/26/2024 Time: 0909-8550 Suki Leon is a 29 y.o. female at 30w4d gestation Twin A FHR Baseline: 120 Variability: moderate Accelerations: present Decelerations: absent Contractions: absent Reactive: Yes Comments: reassuring Twin B FHR Baseline: 130 Variability: moderate Accelerations: present Decelerations: absent Contractions: absent Reactive: Yes Comments: reassuring I have reviewed NST and instructed RN to take off monitor CORBY Ashton Cosigned by Byron Lakhani MD at 08/26/2024 1:02 PM WIRE STRAIGHTENING MACHINE OPERATOR STRAIGHTENING MACHINE OPERATOR STRAIGHTENING MACHINE OPERATOR * Millicent Duran NP - 08/25/2024 12:56 PM CST Procedures Electronic Monitoring/Non-Stress Test Date: 08/25/2024 Time: 3342-5960 Suki Leon is a 29 y.o. female at 30w3d gestation Twin A FHR Baseline: 125 Variability: moderate Accelerations: present Decelerations: absent Contractions: absent Reactive: Yes Comments: reassuring Twin B FHR Baseline: 140 Variability: moderate Accelerations: present Decelerations: absent Contractions: absent Reactive: Yes Comments: reassuring I have reviewed NST and instructed RN to take off monitor CORBY Ashton Cosigned by Byron Lakhani MD at 08/25/2024 1:43 PM WIRE STRAIGHTENING MACHINE OPERATOR STRAIGHTENING MACHINE OPERATOR STRAIGHTENING MACHINE OPERATOR * Millicent Duran NP - 08/24/2024 12:31 PM CST Procedures Electronic Monitoring/Non-Stress Test Date: 08/24/2024 Time: 5259-9561 Suki Leon is a 29 y.o. female at 30w2d gestation Twin A FHR Baseline: 125 Variability: moderate Accelerations: present Decelerations: absent Contractions: absent Reactive: Yes Comments: reassuring Twin B FHR Baseline: 135 Variability: moderate Accelerations: present Decelerations: absent Contractions: absent Reactive: Yes Comments: reassuring I have reviewed NST and instructed RN to take off monitor CORBY Ashton Cosigned by Byron Lakhani MD at 08/24/2024 2:17 PM WIRE STRAIGHTENING MACHINE OPERATOR STRAIGHTENING MACHINE OPERATOR STRAIGHTENING MACHINE OPERATOR * Millicent Duran NP - 08/23/2024 4:48 PM CST Procedures Electronic Monitoring/Non-Stress Test Date: 08/23/2024 Time: 6359-1361 Suki Leon is a 29 y.o. female at 30w1d gestation Twin A FHR Baseline: 130 Variability: moderate Accelerations: present Decelerations: absent Contractions: absent Reactive: Yes Comments: reassuring Twin B FHR Baseline: 130 Variability: moderate Accelerations: present Decelerations: absent Contractions: absent Reactive: Yes Comments: reassuring I have reviewed NST and instructed RN to take off monitor CORBY Ashton Cosigned by Byron Lakhani MD at 08/23/2024 6:03 PM WIRE STRAIGHTENING MACHINE OPERATOR STRAIGHTENING MACHINE OPERATOR STRAIGHTENING MACHINE OPERATOR * Christiano Mathew CNM - 08/22/2024 3:25 PM CST Procedures NONSTRESS TEST Suki Leon is a 29 y.o. here today at 30.0 weeks gestation in the setting of preeclampsia with severe features and MCDA . Time Monitored: 1813-4921 FHR Baseline: A: 130 B: 135 Variability: A: mod B: mod Accelerations: A: present B: present Decelerations: A: absent B: absent Contractions: none noted on toco Reactive: Yes I have reviewed the NST. Tash Mathew CNM Cosigned by Byron Lakhani MD at 08/22/2024 4:04 PM WIRE STRAIGHTENING MACHINE OPERATOR STRAIGHTENING MACHINE OPERATOR STRAIGHTENING MACHINE OPERATOR * Meena Khalil MD - 08/21/2024 11:40 AM CST 29 y.o. at 29w6d Time on monitor: 5571-3979 Fetus A FHR Baseline: 120 Variability: moderate Reactive: Yes Decelerations: none Fetus B FHR Baseline: 130 Variability: moderate Reactive: Yes Decelerations: none Contractions: absent Comments: Reactive NST with small areas of discontinuity, overall reassuring I have reviewed NST and instructed RN to take off monitor Meena Khalil MD PGY-2 Obstetrics & Gynecology Cosigned by Libby Berman MD at 08/21/2024 12:33 PM WIRE STRAIGHTENING MACHINE OPERATOR STRAIGHTENING MACHINE OPERATOR STRAIGHTENING MACHINE OPERATOR Associated attestation - Libby Berman MD - 08/21/2024 12:33 PM WIRE STRAIGHTENING MACHINE OPERATOR I have reviewed the NST and agree with the documentation provided by the resident. Libby Berman MD * Sue Meza MD - 08/20/2024 11:54 AM CST 29 y.o. at 29w5d Time on monitor: 1129 - 1153 Fetus A FHR Baseline: 130 Variability: moderate Reactive: Yes Decelerations: none Fetus B FHR Baseline: 125 Variability: moderate Reactive: Yes Decelerations: none Contractions: absent Comments: reactive and reassuring x2. 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 Nini Skinner MD [facility] Fellow Attestation 3:29 PM 08/20/2024 I have reviewed and agree with the above documentation and interpretation of the tracing. Reactive and reassuring tracing x 2. Sue Meza MD, MPH Cosigned by Leticia Barillas MD at 08/24/2024 2:26 PM WIRE STRAIGHTENING MACHINE OPERATOR STRAIGHTENING MACHINE OPERATOR STRAIGHTENING MACHINE OPERATOR STRAIGHTENING MACHINE OPERATOR * Anastasia Plaza MD - 08/19/2024 4:36 PM CST 29 y.o. at 29w4d a/f preeclampsia with SF Procedures FHR Baseline: 125 Variability: moderate Reactive: Yes FHR Baseline: 125 Variability: moderate Reactive: Yes Contractions: absent Comments: 16:16-16:36 I have reviewed NST and instructed RN to take off monitor Anastasia Plaza MD Cosigned by Leticia Barillas MD at 08/19/2024 5:07 PM WIRE STRAIGHTENING MACHINE OPERATOR STRAIGHTENING MACHINE OPERATOR STRAIGHTENING MACHINE OPERATOR Associated attestation - Leticia Barillas MD - 08/19/2024 5:07 PM WIRE STRAIGHTENING MACHINE OPERATOR I have reviewed the NST for Twin 1 and 2 and agree with the documentation provided by the resident. Leticia Barillas MD * Avery Veloz MD - 08/18/2024 5:23 PM CST Procedures 29 y.o. at 29w3d Time on monitor: 2783-1226 Fetus A FHR Baseline: 130 Variability: moderate Reactive: Yes Decelerations: none Fetus B FHR Baseline: 140 > 135 Variability: moderate Reactive: Yes Decelerations: none Contractions: absent Comments: reactive and reassuring NST I have reviewed NST and instructed RN to take off monitor Nadiya Calix MD PhD Obstetrics & Gynecology - PGY 2 08/18/2024 I agree with NST as documented above. Avery Veloz MD Maternal Medicine Fellow Department of Obstetrics and Gynecology, PGY-6 Cosigned by Leticia Barillas MD at 08/19/2024 5:08 PM WIRE STRAIGHTENING MACHINE OPERATOR STRAIGHTENING MACHINE OPERATOR STRAIGHTENING MACHINE OPERATOR STRAIGHTENING MACHINE OPERATOR * Millicent Duran NP - 08/17/2024 4:18 PM CST Procedures Electronic Monitoring/Non-Stress Test Date: 08/17/2024 Time: 1038-3859 Suki Leon is a 29 y.o. female at 29w2d gestation Twin A FHR Baseline: 130 Variability: moderate Accelerations: present Decelerations: absent Contractions: absent Reactive: Yes Comments: reassuring Twin B FHR Baseline: 130 Variability: moderate Accelerations: present Decelerations: absent Contractions: absent Reactive: Yes Comments: reassuring I have reviewed NST and instructed RN to take off monitor CORBY Ashton Cosigned by Leticia Barillas MD at 08/17/2024 4:57 PM WIRE STRAIGHTENING MACHINE OPERATOR STRAIGHTENING MACHINE OPERATOR STRAIGHTENING MACHINE OPERATOR Associated attestation - Leticia Barillas MD - 08/17/2024 4:57 PM WIRE STRAIGHTENING MACHINE OPERATOR FHR Baseline: 130/130 Variability: moderate x 2 Accelerations: present x2 Decelerations: absent Contractions: absent Reactive: Yes x 2 I have reviewed the NST for Twin 1 and 2 and both reactive. Leticia Barillas MD * Millicent Duran NP - 08/16/2024 4:23 PM CST Procedures Electronic Monitoring/Non-Stress Test Date: 08/16/24 Time: 6440-5936 Suki Leon is a 29 y.o. female at 29w1d gestation Twin A FHR Baseline: 135 Variability: moderate Accelerations: present Decelerations: absent Contractions: absent Reactive: Yes Comments: reassuring Twin B FHR Baseline: 135 Variability: moderate Accelerations: present Decelerations: absent Contractions: absent Reactive: Yes Comments: reassuring I have reviewed NST and instructed RN to take off monitor CORBY Ashton Cosigned by Leticia Barillas MD at 08/17/2024 12:25 PM WIRE STRAIGHTENING MACHINE OPERATOR STRAIGHTENING MACHINE OPERATOR STRAIGHTENING MACHINE OPERATOR * Millicent Duran NP - 08/15/2024 2:41 PM CST Procedures Electronic Monitoring/Non-Stress Test Date: 08/15/2024 Time: 2160-0746 Suki Leon is a 29 y.o. female at 29w0d gestation Twin A FHR Baseline: 130 Variability: moderate Accelerations: present Decelerations: absent Contractions: absent Reactive: Yes Comments: reassuring Twin B FHR Baseline: 135 Variability: moderate Accelerations: present Decelerations: absent Contractions: absent Reactive: Yes Comments: reassuring I have reviewed NST and instructed RN to take off monitor CORBY Ashton Cosigned by Leticia Barillas MD at 08/17/2024 12:25 PM WIRE STRAIGHTENING MACHINE OPERATOR STRAIGHTENING MACHINE OPERATOR STRAIGHTENING MACHINE OPERATOR * Gisell Cunningham MD - 08/14/2024 12:08 PM CST Procedures NST Time: 1065-4956 Twin A FHR Baseline: 125 Variability: moderate Accels: Present x2 Decels: None Reactive: Yes Twin B FHR Baseline: 135 Variability: moderate Accels: Present Decels: None Reactive: Yes Contractions: absent Comments: Reactive and reassuring NST I have reviewed NST and instructed RN to take off monitor Gisell Cunningham MD [facility] Fellow Cosigned by Byron Lakhani MD at 08/15/2024 7:29 AM WIRE STRAIGHTENING MACHINE OPERATOR STRAIGHTENING MACHINE OPERATOR STRAIGHTENING MACHINE OPERATOR * Selena Brooke MD - 08/13/2024 2:36 PM CST 29 y.o. female at 28w5d gestation admitted for preEwSF, Shay NST Time: 20 minutes 8495-9141 Twin A FHR Baseline: 135 Variability: moderate Decelerations: absent Reactive: Yes, 10x10 bpm Contractions: absent Comments: reactive and reassuring Twin B FHR Baseline: 135 > 140 Variability: moderate Decelerations: absent Reactive: Yes, 10x10 bpm Contractions: absent Comments: reactive and reassuring I have reviewed NST and instructed RN to take off monitor Selena Brooke MD Cosigned by Nini Knapp MD at 08/13/2024 2:46 PM WIRE STRAIGHTENING MACHINE OPERATOR STRAIGHTENING MACHINE OPERATOR STRAIGHTENING MACHINE OPERATOR Associated attestation - Nini Knapp MD - 08/13/2024 2:46 PM WIRE STRAIGHTENING MACHINE OPERATOR I have reviewed the NST and agree with the documentation provided by the resident/CHILD SUPPORT OFFICER. Nini Knapp MD * Millicent Duran NP - 08/12/2024 3:55 PM CST Procedures Electronic Monitoring/Non-Stress Test Date: 08/12/24 Time: 4072-3792 Suki Leon is a 29 y.o. female at 28w4d gestation Twin A FHR Baseline: 125 Variability: moderate Accelerations: present Decelerations: absent Contractions: absent Reactive: Yes Comments: reassuring Twin B FHR Baseline: 135 Variability: moderate Accelerations: present Decelerations: absent Contractions: absent Reactive: Yes Comments: reassuring I have reviewed NST and instructed RN to take off monitor CORBY Ashton Cosigned by Byron Lakhani MD at 08/12/2024 3:58 PM WIRE STRAIGHTENING MACHINE OPERATOR STRAIGHTENING MACHINE OPERATOR STRAIGHTENING MACHINE OPERATOR * Millicent Duran NP - 08/11/2024 2:43 PM CST Procedures Electronic Monitoring/Non-Stress Test Date: 08/11/24 Time: 2410-7817 Suki Leon is a 29 y.o. female at 28w3d gestation Twin A FHR Baseline: 130-135 Variability: moderate Accelerations: present Decelerations: absent Contractions: absent Reactive: Yes Comments: reassuring Twin B FHR Baseline: 135-140 Variability: moderate Accelerations: present Decelerations: absent Contractions: absent Reactive: Yes Comments: reassuring I have reviewed NST and instructed RN to take off monitor CORBY Ashton Cosigned by Byron Lakhani MD at 08/11/2024 2:53 PM WIRE STRAIGHTENING MACHINE OPERATOR STRAIGHTENING MACHINE OPERATOR STRAIGHTENING MACHINE OPERATOR * Millicent Duran NP - 08/10/2024 11:15 AM CST Procedures Electronic Monitoring/Non-Stress Test Date: 08/10/24 Time: 0360-8635 Suki Leon is a 29 y.o. female at 28w2d gestation Twin A FHR Baseline: 130 Variability: moderate Accelerations: present Decelerations: absent Contractions: absent Reactive: Yes Comments: reassuring Twin B FHR Baseline: 135 Variability: moderate Accelerations: present Decelerations: absent Contractions: absent Reactive: Yes Comments: reassuring I have reviewed NST and instructed RN to take off monitor CORBY Ashton Cosigned by Byron Lakhani MD at 08/10/2024 11:22 AM WIRE STRAIGHTENING MACHINE OPERATOR STRAIGHTENING MACHINE OPERATOR STRAIGHTENING MACHINE OPERATOR * Mariela Dyson MD - 08/09/2024 10:27 AM CST Procedures 29 y.o. at 28w1d Time on monitor: 8499-3844 Fetus A FHR Baseline: 125 Variability: moderate Reactive: Yes Decelerations: none Fetus B FHR Baseline: 135 Variability: moderate Reactive: Yes Decelerations: none Contractions: absent Comments: reactive and reassuring x2 I have reviewed NST and instructed RN to take off monitor Mariela Voss MD Cosigned by Byron Lakhani MD at 08/09/2024 4:39 PM WIRE STRAIGHTENING MACHINE OPERATOR STRAIGHTENING MACHINE OPERATOR STRAIGHTENING MACHINE OPERATOR Associated attestation - Byron Lakhani MD - 08/09/2024 4:39 PM WIRE STRAIGHTENING MACHINE OPERATOR I have reviewed and agree with NST interpretation * Nini Sterling MD - 08/08/2024 10:26 AM CST Procedures 29 y.o. at 28w0d admitted for PreEwSF with Shay twins. Time on monitor: 1004 to 1025 Fetus A FHR Baseline: 125 Variability: moderate Reactive: Yes Decelerations: none Fetus B FHR Baseline: 130 Variability: moderate Reactive: Yes Decelerations: none Contractions: absent Comments: reassuring and reactive x2 I have reviewed NST and instructed RN to take off monitor. Gabriela Sterling MD, MPH Obstetrics & Gynecology, PGY-4 08/08/24 Cosigned by Byron Lakhani MD at 08/08/2024 10:35 AM WIRE STRAIGHTENING MACHINE OPERATOR STRAIGHTENING MACHINE OPERATOR STRAIGHTENING MACHINE OPERATOR Associated attestation - Byron Lakhani MD - 08/08/2024 10:35 AM WIRE STRAIGHTENING MACHINE OPERATOR I have reviewed and agree with NST interpretation * Avery Veloz MD - 08/07/2024 11:58 AM CST Procedures 29 y.o. at 27w6d Time on monitor: 1136 - 1157 Fetus A FHR Baseline: 125 Variability: moderate Reactive: Yes Decelerations: None Fetus B FHR Baseline: 135 Variability: moderate Reactive: Yes Decelerations: None Contractions: absent Comments: reactive and reassuring x2 I have reviewed NST and instructed RN to take off monitor Nini Skinner MD I agree with NST as documented above. Avery Veloz MD Maternal Medicine Fellow Department of Obstetrics and Gynecology, PGY-6 Cosigned by Byron Lakhani MD at 08/08/2024 6:54 AM WIRE STRAIGHTENING MACHINE OPERATOR STRAIGHTENING MACHINE OPERATOR STRAIGHTENING MACHINE OPERATOR STRAIGHTENING MACHINE OPERATOR * Sue Rodriguez MD - 08/06/2024 1:39 PM CDT Procedures 29 y.o. at 27w5d a/f PreEwSF, Shay. Indication: routine daily NST Time: 1002 - 1028 Twin A FHR Baseline: 125 Variability: moderate Accelerations: present Decelerations: absent Twin B FHR Baseline: 130 Variability: moderate Accelerations: present Decelerations: absent Contractions: absent Reactive: Yes I have reviewed the NST and instructed RN to take off monitor Sue Rodriguez MD Cosigned by Eve Jenkins MD at 08/06/2024 7:23 PM CDT Associated attestation - Eve Jenkins MD - 08/06/2024 7:23 PM CDT Attending Attestation - nonstress test I have reviewed the NST of Suki Leon myself. I agree with the interpretation as documented in the resident???s note. Eve Jenkins MD 08/06/2024 * Jessica Naranjo MD - 08/05/2024 5:20 PM CDT Images from the original note were not included. Procedures Date: 08/05/2024 Time on monitor: 7283-7845 Twin A: Baseline: 120 bpm Variability: Moderate Accelerations: Present Decelerations: Absent Twin B: Baseline: 140 bpm Variability: Moderate Accelerations: Present Decelerations: Absent Contractions: Absent Interpretation: Reactive and reassuring NST x 2 for twin . Jessica Naranjo MD [facility] Division of Maternal- Medicine and Ultrasound Department of Obstetrics and Gynecology [facility] 08/05/2024 * Christiano Mathew CNM - 08/05/2024 3:28 PM CDT Procedures NONSTRESS TEST Suki Leon is a 29 y.o. here today at 27.4 weeks gestation in the setting of preeclampsia. Time: 6572-2171 FHR Baseline: A: 125 B: 145 Variability: A: mod B: mod Accelerations: A: mod B: mod Decelerations: A: absent B: absent Contractions: absent Reactive: Yes I have reviewed the NST. Tash Mathew CNM Cosigned by Jessica Naranjo MD at 08/05/2024 5:24 PM CDT Associated attestation - Jessica Naranjo MD - 08/05/2024 5:24 PM CDT Images from the original note were not included. MFM Attending Attestation I independently evaluated the NST for twin Suki Leon on 08/05/2024 as documented by the CARLI/resident/fellow. Reactive and reassuring NST. Please see my separate documentation for my interpretation. Jessica Naranjo MD [facility] Division of Maternal- Medicine and Ultrasound Department of Obstetrics and Gynecology [facility] 08/05/2024 * Jessica Naranjo MD - 08/04/2024 4:38 PM CDT Images from the original note were not included. Procedures Date: 08/04/2024 Time on monitor: 9288-7311 Twin 1: Baseline: 135 bpm Variability: Moderate Accelerations: Present Decelerations: Absent Twin 2: Baseline: 140 bpm Variability: Moderate Accelerations: Present Decelerations: Absent Contractions: None Interpretation: Reactive and reassuring NST for both twins. Patient is appropriate to take off the monitor at this time. This note is delayed due to patient care. Jessica Naranjo MD [facility] Division of Maternal- Medicine and Ultrasound Department of Obstetrics and Gynecology [facility] 08/04/2024 * Millicent Duran NP - 08/04/2024 12:26 PM CDT Procedures Electronic Monitoring/Non-Stress Test Date: 08/04/24 Time: 3060-1329 Suki Leon is a 29 y.o. female at 27w3d gestation Twin A FHR Baseline: 135 Variability: moderate Accelerations: present Decelerations: absent Contractions: absent Reactive: Yes Comments: reassuring Twin B FHR Baseline: 140 Variability: moderate Accelerations: present Decelerations: absent Contractions: absent Reactive: Yes Comments: reassuring I have reviewed NST and instructed RN to take off monitor CORBY Ashton Cosigned by Jessica Naranjo MD at 08/04/2024 1:17 PM CDT Associated attestation - Jessica Naranjo MD - 08/04/2024 1:17 PM CDT Images from the original note were not included. MFM Attending Attestation I independently evaluated the twin NST for Suki Leon on 08/04/2024 as documented by the CARLI/resident/fellow. I agree with the documentation. Reactive and reassuring NST for both twins. Jessica Naranjo MD [facility] Division of Maternal- Medicine and Ultrasound Department of Obstetrics and Gynecology [facility] 08/04/2024 * Joellen Julio MD - 08/03/2024 5:21 PM CDT Procedures 29 y.o. at 27w2d Time on monitor: [id number] Fetus A FHR Baseline: 130 Variability: moderate Reactive: Yes Decelerations: none Fetus B FHR Baseline: 140 Variability: moderate Reactive: Yes Decelerations: age appropriate variable 1713 Contractions: absent Comments: reactive and reassuring training I have reviewed NST and instructed RN to take off monitor Nadiya Calix MD PhD Obstetrics & Gynecology - PGY 2 08/03/2024 MFM Fellow Attestation I have reviewed the NST and agree with the resident's assessment as above. Reactive and reassuring NSTs x2. Joellen Julio MD Cosigned by Jessica Naranjo MD at 08/04/2024 8:17 AM CDT Associated attestation - Jessica Naranjo MD - 08/04/2024 8:17 AM CDT Images from the original note were not included. MFM Attending Attestation I independently evaluated the NST for the twin of Suki Leon that was done on 08/03/2024 as documented by the resident/fellow. I agree with the documentation. Reactive and reassuring NST for both twins. Jessica Naranjo MD [facility] Division of Maternal- Medicine and Ultrasound Department of Obstetrics and Gynecology [facility] * Jessica Naranjo MD - 08/02/2024 12:31 PM CDT Images from the original note were not included. Procedures Date: 08/02/2024 Time on monitor: 3956-1504 Twin A Baseline: 130 bpm Variability: Moderate Accelerations: Present Decelerations: Absent Twin B Baseline: 135 bpm Variability: Moderate Accelerations: Present Decelerations: Absent Contractions: Absent Interpretation: Reactive and reassuring NST of both twins. Jessica Naranjo MD [facility] Division of Maternal- Medicine and Ultrasound Department of Obstetrics and Gynecology [facility] 08/04/2024 * Mililcent Duran NP - 08/02/2024 10:23 AM CDT Procedures Electronic Monitoring/Non-Stress Test Date: 08/02/24 Time: Suki Leon is a 29 y.o. female at 27w1d gestation Twin A FHR Baseline: 130 Variability: moderate Accelerations: present Decelerations: absent Contractions: absent Reactive: Yes Comments: reassuring Twin B FHR Baseline: 135 Variability: moderate Accelerations: present Decelerations: absent Contractions: absent Reactive: Yes Comments: reassuring I have reviewed NST and instructed RN to take off monitor CORBY Ashton Cosigned by Jessica Naranjo MD at 08/02/2024 11:39 AM CDT Associated attestation - Jessica Naranjo MD - 08/02/2024 11:39 AM CDT Images from the original note were not included. MFM Attending Attestation I independently evaluated the twin NST for Suki Leon on 08/02/2024 as documented by the resident/fellow. I agree with the documentation. Reactive and reassuring NST for both twins. Jessica Naranjo MD [facility] Division of Maternal- Medicine and Ultrasound Department of Obstetrics and Gynecology [facility] 08/02/2024 * Millicent Duran NP - 08/01/2024 12:04 PM CDT Procedures Electronic Monitoring/Non-Stress Test Date: 08/01/24 Time: 1630-9738 Suki Leon is a 29 y.o. female at 27w0d gestation Twin A FHR Baseline: 130 Variability: moderate Accelerations: present Decelerations: absent Contractions: absent Reactive: Yes Comments: reassuring Twin B FHR Baseline: 130 Variability: moderate Accelerations: present Decelerations: absent Contractions: absent Reactive: Yes Comments: reassuring I have reviewed NST and instructed RN to take off monitor CORBY Ashton Cosigned by Jessica Naranjo MD at 08/01/2024 1:54 PM CDT Associated attestation - Jessica Naranjo MD - 08/01/2024 1:54 PM CDT Images from the original note were not included. MFM Attending Attestation I independently evaluated the NST for Suki Leon on 08/01/2024 as documented by theAPP/resident/fellow. I agree with the documentation. Reactive and reassuring NST for twin pregnancyat 27w0d. Jessica Naranjo MD [facility] Division of Maternal- Medicine and Ultrasound Department of Obstetrics and Gynecology [facility] 08/01/2024 * Sue Meza MD - 07/31/2024 12:41 PM CDT Procedures NST Progress Note 29 y.o. at 26w6d admitted for PreEwSF Time on monitor: 9144-7290 Twin A: FHR Baseline: 130 bpm Variability: moderate Accelerations: present Decelerations: none Twin B: FHR Baseline: 135 bpm Variability: moderate Accelerations: present Decelerations: none Contractions: absent Reactive: Yes Comments: Twin B with discontinuity but overall reassuring. Rare age-appropriate variables. Reactive and reassuring for both twins. Instructed RN that patient can be taken off the monitor. Ngantu Chandra Le, MD MFM Fellow Attestation 07/31/2024 1:26 PM I have reviewed and agree with the above documentation and interpretation of the tracing. Sue Meza MD, MPH Cosigned by Jessica Naranjo MD at 08/01/2024 11:27 AM CDT Associated attestation - Jessica Naranjo MD - 08/01/2024 11:27 AM CDT Images from the original note were not included. MFM Attending Attestation I independently evaluated the NST for Suki Leon on 07/31/24 as documented by the resident/fellow. I agree with the documentation. Reactive and reassuring NST. Jessica Naranjo MD [facility] Division of Maternal- Medicine and Ultrasound Department of Obstetrics and Gynecology [facility] 08/01/2024 * Francisca Yun MD - 07/30/2024 1:52 PM CDT 29 y.o. at 26w5d Time on monitor: 5882-4416 Fetus A FHR Baseline: 135 Variability: moderate Reactive: Yes Decelerations: 2 variables at 1234 Fetus B FHR Baseline: 130 Variability: moderate Reactive: Yes Decelerations: 1 variable around 1234 Contractions: absent Comments: overall reassuring and reactive I have reviewed NST and instructed RN to take off monitor Meena Khalil MD PGY-2 Obstetrics & Gynecology MFM Fellow Attestation I have reviewed the tracing and agree with the interpretation as above. NST reactive and reassuringx 2. Variables resolved x 1 hr prior to discontinuing monitoring. C Jama ARBOLEDA PGY7 Cosigned by Nini Knapp MD at 07/31/2024 8:10 AM CDT Associated attestation - Nini Knapp MD - 07/31/2024 8:10 AM CDT I have reviewed the NST and agree with the documentation provided by the resident/CHILD SUPPORT OFFICER. Nini Knapp MD * Mariela Dyson MD - 07/29/2024 11:44 AM CDT Procedures 29 y.o. at 26w4d Time on monitor: 5146-4736, prolonged monitoring Fetus A FHR Baseline: within normal limits, most recently 120 Variability: moderate Reactive: Yes Decelerations: none Fetus B FHR Baseline: within normal limits, most recently 120 Variability: moderate Reactive: Yes Decelerations: none Contractions: absent Comments: periods of discontinuity due to difficulty monitoring, no obvious decelerations, overall reactive and reassuring I have reviewed NST and instructed RN to take off monitor Mariela Voss MD Cosigned by Tash Yeh MD at 07/29/2024 2:13 PM CDT Associated attestation - Tash Yeh MD - 07/29/2024 2:13 PM CDT I have independently reviewed the NST and agree with the documentation provided. Tash Yeh MD [facility] Division of Maternal- Medicine documented in this encounter Consult Notes * Zaheer Foreman MD - 08/10/2024 9:50 AM CSTAssociated Order(s): IP CONSULT TO NEONATOLOGY Neonatology Consult Requesting Service: OB Requesting Provider: Anastasia Amaro MD Reason for Consult: PreE with SF Shay Twins; plan for 34 delivery Dear Anastasia Amaro MD, I had the pleasure of speaking with Suki about the having premature infants at 28w2d. Suki is aware that she is having boys and the chosen names are Jhony and Cornelio. Suki does not have experience with premature infants, but once she found out she was having twins she has done quite a bit of internet research on premature babies. Suki intends to breast feed her newborns. We encouraged breast feeding during our discussion and the importance of early initiation of pumping shortly after delivery. She is interested in a consult. Suki was attentive during our conversation and asked appropriate questions. She has not chosen a retail assistant manager. Consultation Details/Neonatology Counseling: Suki Leon is a 29 y.o. who was admitted to L&D on 07/29/2024 secondary to preeclampsia with severe features. The has been complicated by PreEwSF, Shay twins, twin B (smaller twin) w/ aortic root dilation and lateral ventriculomegaly, chronic HARRY, Rh neg, depression/anxiety. Maternal History: Past Medical History: Diagnosis Date Anxiety GERD (gastroesophageal reflux disease) IBS (irritable bowel syndrome) Migraine headache Obesity Patient Active Problem List Diagnosis Twin , unable to determine number of placenta and number of amniotic sacs, antepartum, unspecified trimester Long-term current use of antidepressant IBS (irritable bowel syndrome) Anxiety disorder BMI 40.0-44.9, adult (HCC) Maternal varicella, non-immune Rh negative state in antepartum period Preeclampsia, unspecified trimester Maternal Social History: Maternal Antepartum History: Maternal Age: 29 y.o. Mom's /Para: labs: Maternal Serologies: Lab Results Component Value Date ABORH O Negative 08/10/2024 IDCOOMB Positive (A) 08/10/2024 HEPBSAG Nonreactive 05/20/2024 LABRPR Nonreactive 07/29/2024 RUBELIGG Reactive 05/20/2024 [id number] Nonreactive 07/29/2024 Other: VZV equiv We discussed the delivery room management of an born at 28w2d, describing that there would be two teams of nurses and doctors, one team for Suki and one team for her infants. We would first assess their breathing and provide support as needed. Breathing support may include positive pressure ventilation, oxygen supplementation or endotracheal intubation. We discussed the possible need for support such as epinephrine or chest compressions if ventilation does not facilitate adequate heartrate response. In addition, we covered the placement of a peripheral IV or an umbilical venous catheter to provide necessary medications. We then discussed the hospital course by system for infants born at 28w2d with the expectation thatthe babies would likely remain hospitalized until at least their due date, Estimated Date of Delivery: 10/31/24, in our NICU. Neurological: We discussed that the brains of infants born at 28 weeks gestation are still developing. Infants at28 weeks gestation are at risk of developmental delay, cerebral palsy, autism and ADHD. In addition, there is a risk for intracranial hemorrhage which can increase incidence of these complications. We monitor infants for intracranial hemorrhage with serial head ultrasounds during their early stay in the NICU. Ophthalmology: We discussed that the eyes of infants born at 28 weeks gestation are still developing. Infants are at risk for retinopathy of prematurity which can result in decrease in visual acuity or blindness. The pediatric ophthalmologists are [facility] will monitor the boys at regular intervals tosee if there is any concern in the eye development. At times, infants need either an intraocular medication or surgery if there is significant retinopathy of prematurity noted. Respiratory: We discussed that the lungs of infants born at 28 weeks gestation are still developing. As we discussed, in the delivery room Jose may need an endotracheal tube and require mechanical ventilation. The amount of time that he/she requires the amount of help with his/her breathing will be variable. This time frame can be from days to weeks and will be constantly assessed during his/her time in the NICU. When he/she is able to tolerate having the endotracheal tube removed, we will transition him/her to breathing help through nasal prongs. We briefly touched on chronic lung disease as a potential complication of prematurity. Cardiovascular: We discussed the transition from in utero environment where the ductus arteriosus is necessary to life where it is expected to close. We discussed that the twins will be monitored for evidence of persistence of the ductus arteriosus, which may require intervention if it is causing difficulty to the infant. Feeding: We discussed the normal developmental feeding pattern with the expectation that somewhere between 34-36 weeks of gestation, infants will begin to develop the ability to take food by mouth. Until taking food by mouth, we discussed first providing nutrition through the IV and then transitioning slowly to breast milk that will be given through a small soft tube that is inserted through his/her nose and goes to the stomach. We discussed the importance of breast milk especially for premature infants. In addition, we briefly discussed the possible complication of necrotizing enterocolitis. Infection: We discussed the possible need for antibiotics during the time in the NICU as infants are at increased risk for infection. Hematology: We discussed the possibility of jaundice as well as anemia in infants born prematurely. Thermoregulation: We discussed the need for an isolette to help keep Jose warm and that this would be used until he/she is able to maintain their temperature on their own in an open crib. We discussed that COVID-19 infections remain in our community and frequently impact visitation in the NICU. We discussed that and lactating people are eligible for COVID-19 vaccination, people are at increased risk for severe COVID-19, and data available to date has not demonstrated any safety concerns for or lactating people who were vaccinated or their babies. Antibodies cross the placenta and into breastmilk and may confer some protection to the as well. We offered Suki the opportunity to ask questions about the vaccine and encouraged vaccination, in addition to hand washing and masking, to help protect mother and baby. Finally, we discussed that before going home, the infant would need to be able to keep warm on their own, breathe room air, and grow while taking all food by mouth. Thank you for allowing us to participate in the care of Suki. We remain available to answer any further questions and to participate in care of the baby after delivery. Sincerely, Zaheer Foreman MD Counseling time to be documented by attending. Cosigned by Carrol Acosta MD at 08/10/2024 1:16 PM WIRE STRAIGHTENING MACHINE OPERATOR STRAIGHTENING MACHINE OPERATOR STRAIGHTENING MACHINE OPERATOR Associated attestation - Carrol Acosta MD - 08/10/2024 1:16 PM WIRE STRAIGHTENING MACHINE OPERATOR OB INPATIENT Consult Attestation: I have reviewed the medical record and have seen and met the patient for consultation on 08/10/2024. I have reviewed and agree with the findings and assessment documented by the resident physician. I personally discussed the documented plan with the family. We discussed a number of complex problems including the possibility of respiratory failure requiring assisted ventilation. I reviewed the inpatient OB/MFM notes and the maternal serologies. This fetus is currently less than 32 weeks EGA or less than 1500g estimated weight and is at high risk for complications. Plan for Maldonado Hour Protocol as appropriate. Carrol Acosta MD 08/10/2024 1:16 PM Attending Websphere Developer * Macie Vickers MD - 08/03/2024 10:33 AM CDTAssociated Order(s): IP CONSULT TO PEDIATRIC CARDIOLOGY CARDIOLOGY CONSULTATION RE: Suki Leon : 1995 I had the pleasure of seeing Ms. Suki Leon in initial cardiac consultation at [facility]. Suki is a 29 y.o. female referred today for echocardiogram due to concern for possible aortic dilation. This is a mono-di . OSH ultrasound reported aortic dilation on fetus 1 designated on maternal left per US report. JERONIMO is 10/31/24, making the gestational age approximately 27+2 weeks at the time of this evaluation.She will be delivering at [facility]. She reports she is carrying a male fetuses. She is currently admitted at [facility] for pre-E with severe features. There is lateral ventriculomegaly noted in twin B. No other anomalies have been noted. Genetic testing: NIPT - LR Referring OB/MFM: Marlen White MD Past Medical History: Diagnosis Date Anxiety GERD (gastroesophageal reflux disease) IBS (irritable bowel syndrome) Migraine headache Obesity Current Facility-Administered Medications: acetaminophen (TYLENOL) tablet 650 mg, 650 mg, oral, Q4H PRN, Ana M Rogers MD, 650 mg at 08/03/24 0437 aspirin chewable tablet 81 mg, 81 mg, oral, Daily, Ana M Rogers MD, 81 mg at 08/03/24 0857 Carrier Fluids for Secondary Infusion - 0.9% Sodium Chloride, 30 mL, intravenous, PRN, Ana M Rogers MD diphenhydrAMINE (BENADRYL) tab/cap 25 mg, 25 mg, oral, QID PRN, Ana M Rogers MD, 25 mgat 08/02/242015 metoclopramide (REGLAN) tablet 10 mg, 10 mg, oral, Q6H PRN, Maureen Calix MD, 10 mg at 08/02/242015 NIFEdipine (PROCARDIA XL/ADALAT CC) extended release tablet 90 mg, 90 mg, oral, Daily, Maureen Calix MD, 90 mg at 08/03/24 0857 PNV with imjvleq-ymps-DK tablet 1 tablet, 1 tablet/capsule, oral, Daily, Ana M Rogers MD, 1 tablet at 08/03/24 08 polyethylene glycol (MIRALAX) packet 17 g, 17 g, oral, BID PRN, Meena Khalil MD, 17 g at 07/31/24 0942 progesterone (PROMETRIUM) capsule 200 mg, 200 mg, oral, Daily, Ana M Rogers MD, 200 mgat 08/03/24 08 senna (SENOKOT) tablet 1 tablet, 1 tablet, oral, BID PRN, Meena Khalil MD, 1 tablet at 07/31/24 0942 sodium chloride 0.9% flush 0.5-20 mL, 0.5-20 mL, intra-catheter, Q8H ASHLEY, Ana M Rogers MD, 10 mL at 08/02/242015 sodium chloride 0.9% flush 0.5-20 mL, 0.5-20 mL, intra-catheter, PRN, Ana M Rogers MD,10 mL at 07/30/24 0822 No Known Allergies Family History Problem Relation Age of Onset [...] Conv) Cancer Neg Hx no colon 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 04/15/24 There is no known congenital heart disease, defects, or genetic syndromes. Social History Suki is to Florentino Leon, 33. She lives in [place], [place]. 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 She denies tobacco, alcohol, or illicit drug use. Vitals: 08/02/24200508/02/24 2359 08/03/24 0434 08/03/24 0855 BP: 142/92 135/79 137/84 139/83 BP Location: Right arm Right arm Right arm Patient Position: Lying Lying Lying Pulse: 115 98 90 115 Resp: 18 16 16 16 Temp: 36.6 ??C (97.8 ??F) 36.9 ??C (98.5 ??F) 36.9 ??C (98.4 ??F) 36.6 ??C (97.9 ??F) TempSrc: Oral Oral Oral Oral SpO2: 96% 100% 98% Height: Body mass index is 47.26 kg/m??. Echocardiogram 08/03/24: Fetus A (maternal low right): Impression: Grossly normal cardiac structure and function. Balanced four chamber view with qualitatively normal systolic function. There is levocardia noted. Normally related great vessels. No inflow or outflow tract obstruction. No obvious VSD. No valvar regurgitation. Unobstructed aortic and ductal arches. Left aortic arch. At least 2 pulmonary veins drain normally to the LA. Normal systemic venous return. Normal heart rate with 1:1 AV conduction. No pericardial effusion. Three vessel cord noted, with normal Doppler pattern. Normal ductus venosus Doppler. Fetus B ( maternal left high) Impression: Mildly dilated AsAo, otherwise grossly normal [...] normal Doppler pattern. Normal ductus venosus Doppler. Impression and Recommendations: In summary, it is my impression that these twin fetus A (maternal low right): has grossly normal cardiac structure and function, while twin B (maternal left high) has mildly dilated ascending aorta. Otherwise grossly normal cardiac structure and function. I reviewed these findings with Suki with the use of a diagram. The aortic dilation noted does notrequire any intervention at this point and can be monitored with time. Given association of AsAo dilation with bicuspid aortic valve, the latter needs to be ruled out on a echo, in additionto reassessing the size of the ascending aorta. Further management will be determined accordingly. No intervention is anticipated and therefore no change of delivery planning is indicated. The echo can be performed routinely prior to hospital discharge. I also discussed with Suki the limitations of echocardiography and of this study in particular, including the inability to rule out small septal defects, mild valve abnormalities, aortic coarctation, and that there are certain cardiac structures patent in utero that normally close following delivery. I do not anticipate the need for further cardiology follow-up. echo is recommended for fetus B (maternal left) Thank you for the opportunity of consultation. Please contact me at [phone] with questions or concerns regarding these findings or recommendations. I spent a total of 60 minutes on day of service in review of the records and time in counseling. Sincerely, Macie Vickers MD documented in this encounter Nursing Notes * Nancy Crooks RN - 09/22/2024 8:33 AM CST Pt enrolled in Home BP monitoring program and states she already has a BP cuff at home to use. RN reviewed appropriate positioning for BP monitoring, discharge education, and signs and symptoms to report to MD. RN confirmed patient received remote BP monitoring welcome text and replied YES. Pt stated understanding of education. STRAIGHTENING MACHINE OPERATOR * Heather Abel RN - 08/12/2024 9:09 AM CST This RN instructed patient on the administration of chewable aspirin. The patient stated, I alwaysswallow it. This RN educated the patient on chewing the aspirin, as that is the most effective forthe effect of the medication. Patient verbalized understanding, but refused to chew the aspirin, saying that she does not like the texture of any chewable medications. Patient insisted on swallowing the tablet. STRAIGHTENING MACHINE OPERATOR documented in this encounter Miscellaneous Notes * Plan of Care - Nancy Crooks RN - 09/22/2024 9:01 AM CST Problem: General Patient Education Goal: Knowledge of disease process, condition or treatment will be improved Outcome: Adequate for Discharge Problem: Medication Regimen Goal: Knowledge of medication regimen will improve Outcome: Adequate for Discharge Problem: Additional OB Conditions Goal: Will remain free from complications related to obstetric conditions Outcome: Adequate for Discharge Goal: Mother's verbalization of understanding around OB conditions and complications will improve Outcome: Adequate for Discharge Problem: Lack of Knowledge Goal: Ability to develop a pain control plan will improve Outcome: Adequate for Discharge Problem: Medication Goal: Satisfaction with pain management medication regimen will improve Outcome: Adequate for Discharge Problem: Sensory Goal: Ability to identify factors that increase pain levels will improve while working to decrease the patient's pain levels Outcome: Adequate for Discharge Problem: Coping Goal: Ability to cope will improve Outcome: Adequate for Discharge Problem: Health Behavior Goal: Identification of resources available to assist in meeting health care needs will improve Outcome: Adequate for Discharge Problem: Skin Integrity Impairment Risk Goal: Mobility will improve Outcome: Adequate for Discharge Goal: Understanding of ways to prevent future skin breakdown will improve Outcome: Adequate for Discharge Goal: Nutritional status will improve Outcome: Adequate for Discharge Goal: Risk for impaired skin integrity will decrease Outcome: Adequate for Discharge Problem: Skin/Tissue Integrity Goal: Skin integrity remains intact Outcome: Adequate for Discharge Goal: Incisions, wounds, or drain sites healing without S/S of infection Outcome: Adequate for Discharge Problem: Section Goal: Postoperative complications will be avoided or minimized Outcome: Adequate for Discharge Goals: Clinical Goals for the Shift: Pain control; VSS; Alternate activity with rest; Prepare for discharge Practice Administrator Patient Centered Goal for Treatment: Safe dc home Summary: Pt adequate for discharge. STRAIGHTENING MACHINE OPERATOR * Plan of Care - Soumya Teixeira RN - 09/22/2024 5:26 AM WIRE STRAIGHTENING MACHINE OPERATOR Problem: General Patient Education Goal: Knowledge of disease process, condition or treatment will be improved Outcome: Progressing Problem: Medication Regimen Goal: Knowledge of medication regimen will improve Outcome: Progressing Problem: Additional OB Conditions Goal: Will remain free from complications related to obstetric conditions Outcome: Progressing Goal: Mother's verbalization of understanding around OB conditions and complications will improve Outcome: Progressing Problem: Lack of Knowledge Goal: Ability to develop a pain control plan will improve Outcome: Progressing Problem: Medication Goal: Satisfaction with pain management medication regimen will improve Outcome: Progressing Problem: Sensory Goal: Ability to identify factors that increase pain levels will improve while working to decrease the patient's pain levels Outcome: Progressing Problem: Coping Goal: Ability to cope will improve Outcome: Progressing Problem: Health Behavior Goal: Identification of resources available to assist in meeting health care needs will improve Outcome: Progressing Problem: Skin Integrity Impairment Risk Goal: Mobility will improve Outcome: Progressing Goal: Understanding of ways to prevent future skin breakdown will improve Outcome: Progressing Goal: Nutritional status will improve Outcome: Progressing Goal: Risk for impaired skin integrity will decrease Outcome: Progressing Problem: Skin/Tissue Integrity Goal: Skin integrity remains intact Outcome: Progressing Goal: Incisions, wounds, or drain sites healing without S/S of infection Outcome: Progressing Problem: Section Goal: Postoperative complications will be avoided or minimized Outcome: Progressing Goals: Clinical Goals for the Shift: VS WNL, adequate pain control, adequate rest Practice Administrator Patient Centered Goal for Treatment: Safe dc home Summary: Patient is adequately progressing towards care plan goals. STRAIGHTENING MACHINE OPERATOR * Note - Nini Borges RN - 09/21/2024 3:46 PM CST This note was copied from a baby's chart. Consult Note Patient name: Regino Leon Mother's Name: Suki Leon Mother's Age: 27 y.o. /Para/: Father's Name: Date of : 09/19/2024 Time of : 2:59 PM Delivery Type: Today's Date: 09/21/2024 Admission Date: 09/19/2024 3:58 PM Weight: 2530 g (5 lb 9.2 oz) Length: 18.307 Current Gestational Age: 34w 2d Patient Active Problem List Diagnosis of 34 completed weeks of gestation Prematurity RDS (respiratory distress syndrome in the ) Immature thermoregulation Feeding problem in Infant Feeding Plan: Breast and bottle Mother of patient plans to pump breast milk for her baby. I have discussed the importance of providing the expressed breast milk. She has expressed appropriate concerns, asked pertinent questions, and has understood the discussion well. Assessment: Reason for Consult: Initial assessment, MD order, Initial consult, NICU baby Nutrition Plans: Human Milk Contraindications: No MATERNAL INFORMATION Has mother provided human milk before?: No class: No to breast within first hour of ?: No Delayed Due to: status Exclusive Pump and Bottle Feed: No WIC Program: Yes LATCH Score: 0 BREAST PUMP Pump: 3 (hands free) Pump Review/Education: Setup, frequency, and cleaning, Milk storage, Other (Comment) (LC guide reviewed) Initiated by: Abhinav Borges RN IBCLC Date Initiated: 09/21/24 PATIENT FOLLOW-UP Additional Problem Noted: Risk factors for low supply include: flat nipples, PreE, use of mag, BMZ separation and Lack of support Risk Factors for Milk Expression: Flat nipples, induced hypertension, Pre-eclampsia, and Use of magnesium sulfate, and Hormone issues: PCOS / IVF Breast Pumping Instructions: [] Guide Reviewed Discussed with mother initiating and maintaining milk supply when baby is unable to nurse, Mother able to demonstrate hand expression technique, Guide reviewed, Mother instructed to pump every 2 to 3 hours for 20 minutes both breasts at the same time using an electric pump, Demonstrated how to use shawnee breast pump when collecting colostrum, Demonstrated settings for shawnee pump ( Lactognesis II), Mother return demonstration on Hands-On Pumping, Mother instructed on pumping schedule, use of pump, storage and transport of breast milk, and cleaning of pump, Mom has secured an electric pump for home use, Mother instructed to massage breasts to promote milk flow, Mother able to demonstrate manual expression of milk, Demonstrate how to keep track of pumping on a pumping log or carli, Parents informed of meal vouchers available for NICU mothers providing breast milk, and Mother is aware to have paged for concerns when here visiting the Baby WIC Location: [place] Insurance Provider: [place] medicaid Loaner Pump Number: aware Personal Pump: hands free Comments: Attempted BF, infant too sleepy. Nuzzled at breast. Discussed breast engorgement prevention and management. Discussed plugged ducts, signs and symptoms. Reviewed when to expect mother's full milk supply, and regulation of supply. [employer] carli, as well as meal program reviewed. Discussed pumps offered through mother's insurance. Mother aware loaner pump available until her pump arrives. Support and encouragement offered. Nini Borges RN 09/21/2024 3:46 PM STRAIGHTENING MACHINE OPERATOR * Plan of Care - Nancy Crooks RN - 09/21/2024 9:17 AM CST Problem: General Patient Education Goal: Knowledge of disease process, condition or treatment will be improved Outcome: Progressing Problem: Medication Regimen Goal: Knowledge of medication regimen will improve Outcome: Progressing Problem: Additional OB Conditions Goal: Will remain free from complications related to obstetric conditions Outcome: Progressing Goal: Mother's verbalization of understanding around OB conditions and complications will improve Outcome: Progressing Problem: Lack of Knowledge Goal: Ability to develop a pain control plan will improve Outcome: Progressing Problem: Medication Goal: Satisfaction with pain management medication regimen will improve Outcome: Progressing Problem: Sensory Goal: Ability to identify factors that increase pain levels will improve while working to decrease the patient's pain levels Outcome: Progressing Problem: Coping Goal: Ability to cope will improve Outcome: Progressing Problem: Health Behavior Goal: Identification of resources available to assist in meeting health care needs will improve Outcome: Progressing Problem: Skin Integrity Impairment Risk Goal: Mobility will improve Outcome: Progressing Goal: Understanding of ways to prevent future skin breakdown will improve Outcome: Progressing Goal: Nutritional status will improve Outcome: Progressing Goal: Risk for impaired skin integrity will decrease Outcome: Progressing Problem: Skin/Tissue Integrity Goal: Skin integrity remains intact Outcome: Progressing Goal: Incisions, wounds, or drain sites healing without S/S of infection Outcome: Progressing Problem: Section Goal: Postoperative complications will be avoided or minimized Outcome: Progressing Goals: Clinical Goals for the Shift: Pain control; VSS; Alternate activity with rest [facility] Patient Centered Goal for Treatment: Safe dc home Summary: Pt progressing toward plan of care goals. STRAIGHTENING MACHINE OPERATOR * Plan of Care - Soumya Teixeira RN - 09/21/2024 2:54 AM WIRE STRAIGHTENING MACHINE OPERATOR Problem: General Patient Education Goal: Knowledge of disease process, condition or treatment will be improved 09/21/2024 025 by Soumya Teixeira RN Outcome: Progressing 09/21/2024 025 by Soumya Teixeira RN Outcome: Progressing Problem: Medication Regimen Goal: Knowledge of medication regimen will improve 09/21/2024 025 by Soumya Teixeira RN Outcome: Progressing 09/21/2024 0253 by Soumya Teixeira RN Outcome: Progressing Problem: Additional OB Conditions Goal: Will remain free from complications related to obstetric conditions 09/21/2024 0253 by Soumya Teixeira RN Outcome: Progressing 09/21/2024 0253 by Soumya Teixeira RN Outcome: Progressing Goal: Mother's verbalization of understanding around OB conditions and complications will improve 09/21/2024 025 by Soumya Teixeira RN Outcome: Progressing 09/21/2024 0253 by Soumya Teixeira RN Outcome: Progressing Problem: Lack of Knowledge Goal: Ability to develop a pain control plan will improve 09/21/2024252 by Soumya Teixeira RN Outcome: Progressing 09/21/2024252 by Soumya Teixeira RN Outcome: Progressing Problem: Medication Goal: Satisfaction with pain management medication regimen will improve 09/21/2024252 by Soumya Teixeira RN Outcome: Progressing 09/21/2024252 by Soumya Teixeira RN Outcome: Progressing Problem: Sensory Goal: Ability to identify factors that increase pain levels will improve while working to decrease the patient's pain levels 09/21/2024252 by Soumya Teixeira RN Outcome: Progressing 09/21/2024252 by Soumya Teixeira RN Outcome: Progressing Problem: Coping Goal: Ability to cope will improve 09/21/2024252 by Soumya Teixeira RN Outcome: Progressing 09/21/2024252 by Soumya Teixeira RN Outcome: Progressing Problem: Health Behavior Goal: Identification of resources available to assist in meeting health care needs will improve 09/21/2024252 by Soumya Teixeira RN Outcome: Progressing 09/21/2024252 by Soumya Teixeira RN Outcome: Progressing Problem: Skin Integrity Impairment Risk Goal: Mobility will improve 09/21/2024252 by Soumya Teixeira RN Outcome: Progressing 09/21/2024252 by Soumya Teixeira RN Outcome: Progressing Goal: Understanding of ways to prevent future skin breakdown will improve 09/21/2024252 by Soumya Teixeira RN Outcome: Progressing 09/21/2024252 by Soumya Teixeira RN Outcome: Progressing Goal: Nutritional status will improve 09/21/2024252 by Soumya Teixeira RN Outcome: Progressing 09/21/2024252 by Soumya Teixeira RN Outcome: Progressing Goal: Risk for impaired skin integrity will decrease 09/21/2024252 by Soumya Teixeira RN Outcome: Progressing 09/21/2024252 by Soumya Teixeira RN Outcome: Progressing Problem: Skin/Tissue Integrity Goal: Skin integrity remains intact 09/21/2024252 by Soumya Teixeira RN Outcome: Progressing 09/21/2024252 by Soumya Teixeira RN Outcome: Progressing Goal: Incisions, wounds, or drain sites healing without S/S of infection 09/21/2024252 by Soumya Teixeira RN Outcome: Progressing Flowsheets (Taken 09/21/2024252) Incision(s), Wound(s) or Drain Site(s) healing without S/S of infection: Implement wound care per orders Assess and document dressing/incision, wound bed, drain sites and surrounding tissue 09/21/2024252 by Soumya Teixeira RN Outcome: Progressing Flowsheets (Taken 09/21/2024252) Incision(s), Wound(s) or Drain Site(s) healing without S/S of infection: Implement wound care per orders Assess and document dressing/incision, wound bed, drain sites and surrounding tissue Problem: Section Goal: Postoperative complications will be avoided or minimized Outcome: Progressing Flowsheets (Taken 09/21/2024252) Postoperative complications will be avoided or minimized: Monitor fundal height and consistency Monitor lochia amount and color Monitor for signs and symptoms of bleeding Monitor for signs and symptoms of infection Provide venous thromboembolism (VTE) prophylaxis Encourage coughing and deep breathing Encourage incentive spirometry usage Implement activity progression plan Encourage periods of rest Monitor for signs and symptoms of urinary retention Implement postoperative nutritional progression plan Support actions that promote regular bowel function Goals: Clinical Goals for the Shift: VS WNL, adequate pain relief with treatment regimen, continue to pump8-12x per day ' Practice Administrator Patient Centered Goal for Treatment: Safe dc home Summary: Patient is adequately progressing towards care plan goals. STRAIGHTENING MACHINE OPERATOR * Note - Sultana Schwarz RN - 09/20/2024 8:40 AM CST Discussed importance of pumping 8-12 times daily for infants in NICU. Discussed importance of breasts massage, pumping then hand expression. Discussed pump, pump settings, how to clean all pumping parts, use lowerator operator bag daily, and how to collect and store ebm and take to NICU. Mother states has a hands free pump to use after discharge; discussed to ask NICU for an electric breast pump upon discharge. Discussed care during engorgement and aware of all discharge resources. Mother shown hand expression with no drops of colostrum noted. Emotional support given. STRAIGHTENING MACHINE OPERATOR * Plan of Care - Arianne Lee RN - 09/20/2024 8:10 AM CST Problem: General Patient Education Goal: Knowledge of disease process, condition or treatment will be improved Outcome: Progressing Problem: Medication Regimen Goal: Knowledge of medication regimen will improve Outcome: Progressing Flowsheets (Taken 09/20/2024808) Knowledge of medication regimen will improve: Provide realistic goals for learning Assess comprehension of information provided about medications Assess physical and emotional readiness to learn Problem: Additional OB Conditions Goal: Will remain free from complications related to obstetric conditions Outcome: Progressing Flowsheets (Taken 09/20/2024 08) Will remain free of complications related to obstetric conditions: Evaluate deep tendon reflexes Assess visual and neuro statuses Monitor heart rate Monitor movement Assess vaginal bleeding or drainage Goal: Mother's verbalization of understanding around OB conditions and complications will improve Outcome: Progressing Problem: Lack of Knowledge Goal: Ability to develop a pain control plan will improve Outcome: Progressing Flowsheets (Taken 09/20/2024 08) Ability to develop a pain control plan will improve: Explain causes of pain and how long pain can be expected to last Teach information regarding pain management Educate pain scale for assessing level of pain Problem: Coping Goal: Ability to cope will improve Outcome: Progressing Flowsheets (Taken 09/20/2024808) Ability to cope will Improve: Encourage vebalization of feelings surrounding pain Provide emotional support Perform depression screening Assess beliefs of pain Problem: Skin Integrity Impairment Risk Goal: Mobility will improve Outcome: Progressing Flowsheets (Taken 09/20/2024808) Mobility will improve: Encourage mobilization to extent of ability, assist with range of motion as needed Encourage turning and repositioning, assist as needed Goal: Understanding of ways to prevent future skin breakdown will improve Outcome: Progressing Problem: Skin/Tissue Integrity Goal: Skin integrity remains intact Outcome: Progressing Flowsheets (Taken 09/20/2024 0809) Skin integrity remains intact: Assess and document risk factors for pressure injury development Assess and document skin integrity Monitor for areas of redness and/or skin breakdown Problem: Genitourinary Goal: Absence of urinary retention Outcome: Progressing Flowsheets (Taken 09/20/2024 0809) Absence of urinary retention: Assess patient???s ability to void and empty bladder Assess amount and/or characteristics of urine Monitor intake/output and perform bladder scan as needed Goals: Clinical Goals for the Shift: VSS, pain controlled, BP controlled Practice Administrator Patient Centered Goal for Treatment: safe dsicharge to home Summary: VSS, pain controlled, BP Controlled. STRAIGHTENING MACHINE OPERATOR * Plan of Care - Blessing Dean RN - 09/20/2024 4:16 AM CST Problem: General Patient Education Goal: Knowledge of disease process, condition or treatment will be improved Outcome: Progressing Problem: Additional OB Conditions Goal: Will remain free from complications related to obstetric conditions Outcome: Progressing Goal: Mother's verbalization of understanding around OB conditions and complications will improve Outcome: Progressing Problem: Skin Integrity Impairment Risk Goal: Mobility will improve Outcome: Progressing Goal: Understanding of ways to prevent future skin breakdown will improve Outcome: Progressing Goal: Nutritional status will improve Outcome: Progressing Goal: Risk for impaired skin integrity will decrease Outcome: Progressing Problem: Medication Regimen Goal: Knowledge of medication regimen will improve Outcome: Progressing Problem: Lack of Knowledge Goal: Ability to develop a pain control plan will improve Outcome: Progressing Problem: Medication Goal: Satisfaction with pain management medication regimen will improve Outcome: Progressing Problem: Sensory Goal: Ability to identify factors that increase pain levels will improve while working to decrease the patient's pain levels Outcome: Progressing Problem: Coping Goal: Ability to cope will improve Outcome: Progressing Problem: Health Behavior Goal: Identification of resources available to assist in meeting health care needs will improve Outcome: Progressing Problem: Skin/Tissue Integrity Goal: Skin integrity remains intact Outcome: Progressing Goal: Incisions, wounds, or drain sites healing without S/S of infection Outcome: Progressing Problem: Musculoskeletal Goal: Return mobility to safest level of function Outcome: Progressing Problem: Gastrointestinal Goal: Minimal or absence of nausea and vomiting Outcome: Progressing Problem: Genitourinary Goal: Absence of urinary retention Outcome: Progressing Goals: Clinical Goals for the Shift: VSS; pain management; rest Practice Administrator Patient Centered Goal for Treatment: Safe discharge home Summary: Pt is progressing towards goals. STRAIGHTENING MACHINE OPERATOR * Plan of Care - Ashley Michaud RN - 09/19/2024 7:41 PM WIRE STRAIGHTENING MACHINE OPERATOR Goals: Clinical Goals for the Shift: Rest, VSS Practice Administrator Patient Centered Goal for Treatment: healthy mom and babies Summary: Patient resting comfortably STRAIGHTENING MACHINE OPERATOR * Op Note - Rey Quinonez MD - 09/19/2024 1:30 PM CST [facility] Section Delivery Note Patient's Name: Suki Leon : 1995 Attending Physician: Josefina Peter MD Surgical Team: Surgeons and Role: * Josefina Peter MD - Primary * Anastasia Plaza MD - Resident - Assisting * Rey Quinonez MD - Resident - Assisting * Joellen Schilling MD - Fellow Clinic: [facility] Primary Diagnoses: Preeclampsia with severe features Monochorionic diamniotic twins Severe growth restriction of Twin A Aortic dilation of Twin B Lateral ventriculomegaly of Twin B Depression/anxiety Obesity Delivery method: Tiffany Leon [[id number]] [351] Nancy Leon [] [351] Anesthesia: Tiffany Leon [] Combined Spinal/Epidural [300] Nancy Leon [] Combined Spinal/Epidural [300] Membranes: Tiffany Leon [] Artificial Nancy Leon [[id number]] Artificial rupture, clear. Time ruptured prior to delivery: rupture date, rupture time, delivery date, or delivery time have not been documented Antibiotics: Ancef Delivery Date/Time: 09/19/2024 at 2:59 PM Placenta Delivery Date & Time: Tiffany Leon [[id number]] 09/19/2024 3:02 PM Nancy Leon [[id number]] 09/19/2024 3:02 PM Cord: Tiffany Leon [[id number]] 3 vessels [3] Nancy Leon [[id number]] 3 vessels [3] Delayed cord clamping: Yes, 60 seconds. For Twin B Infant: living5 lb 9.2 oz (2.53 kg)male MRN: Tiffany Leon [[id number]] [id number] Nancy Leon [[id number]] [id number] APGARs: Tiffany Leon [[id number]] 9 Nancy Leon [[id number]] 8 / Tiffany Leon [[id number]] 9 Nancy Leon [[id number]] 9 Disposition: NICU Operative Note Preoperative Diagnosis: Intrauterine at 34w0d Monochorionic diamniotic twin with 33% discordance Postoperative Diagnosis: Same Name of Operation: Primary Low Transverse Section via Pfannensteil Indication for Procedure: Suki Leon is a 29 y.o. female at 34w0d weeks gestation, dated by 1st trimester ultrasound who presented to L&D for primary section. Operative Findings: Infant in vertex presentation. APGARS were Tiffany Leon [[id number]] 9 Nancy Leon [[id number]] 8 / Edward, Tiffany [[id number]] 9 Nancy Leon [[id number]] 9 at 1 and 5 minutes respectively. Pediatrics was present at delivery. Placenta with central 3 vessel cord. Normal uterus, bilateral tubes and ovaries. Description of Procedure: After obtaining the appropriate operative consents, the patient was takento the operating room, where CSe was placed and confirmed to be adequate. She was given 3 grams of Ancef. She was then prepared and draped in the normal sterile fashion in the supine position with a leftward tilt. A Pfannenstiel skin incision was then made with the scalpel and carried through to the underlying layer of fascia. The fascia was incised in the midline and the incision extended laterally with Padilla scissors. The superior aspect of the fascial incision was then grasped with the Kocherclamps and elevated, the underlying rectus muscles were dissected off bluntly and sharply. Attention was then turned to the inferior aspect of the fascial incision, which, in a similar fashion, was grasped and tented up with the Tarsha clamps, the underlying rectus muscles were dissected off bluntly. The rectus muscles were then in the midline, and the peritoneum was identified and entered bluntly. The peritoneal incision was then extended superiorly and inferiorly with good visualization of the bladder. The bladder blade was then inserted and the vesicouterine peritoneum identified. A low transverse hysterotomy was made with the scalpel. The uterine incision was then extended bluntly. The bladder blade was removed and the 's head was brought to the level of the hysterotomyand delivered atraumatically. The cord was clamped and cut and the infant was handed off to the waiting pediatricians. Twin B's head was then brought to the level of the hysterotomy, amniotomy was performed, and the infant was delivered atraumatically. Cord gases were sent. The placenta was then delivered using external massage. The uterus was exteriorized and cleared of all clots and debris. The uterine incision was repaired with 0-vicryl in a running, locked fashion. A second imbricating layer of the same suture was used to obtain excellent hemostasis. Good hemostasis was noted after hysterotomy closure. The uterus was returned to the abdomen and the gutters were cleared of all clots and debris. The hysterotomy was examined in situ and hemostasis was satisfactory. The ventral aspect of the fascia wasinspected and no fascial defects were found. The rectus muscles were inspected and found to be intact. The fascia was reapproximated with looped 0 PDS in a running fashion. The subcutaneous tissue was then irrigated and the bovie was used to obtain excellent hemostasis. The subcutaneous tissue was closed with 3-0 vicryl. The skin was closed with 3-0 monocryl in a subcuticular fashion. The patient tolerated the procedure well and was taken to the recovery room in stable condition. Complications: None Estimated Blood Loss: 800 mL Intraoperative Fluids: 700mL crystalloid Urine Output: 200mL clear yellow urine at the end of the procedure Sponge/Instrument/Needle Counts: The sponge, lap and needle counts were correct x3. Specimens Sent To Pathology: placenta The attending, Josefina Peter MD, was present for the barbosa portions of the procedure. Rey Quinonez MD Cosigned by Josefina Peter MD at 09/21/2024 10:12 PM WIRE STRAIGHTENING MACHINE OPERATOR STRAIGHTENING MACHINE OPERATOR STRAIGHTENING MACHINE OPERATOR Associated attestation - Josefina Peter MD - 09/21/2024 10:12 PM WIRE STRAIGHTENING MACHINE OPERATOR I was present for the entire procedure; I agree with the operative report above. Josefina Peter MD * Brief Op Note - Rey Quinonez MD - 09/19/2024 1:30 PM CST Operative Progress Note Surgical Team: Surgeons and Role: * Josefina Peter MD - Primary * Anastasia Plaza MD - Resident - Assisting * Rey Quinonez MD - Resident - Assisting * Joellen Schilling MD - Fellow Anesthesiologist: Sidra Ann MD Anesthesia Fellow: Liliam Rodriguez MD [employer] Consultant: Apolinar Schmitt MD; Abena Denton MD Band Aid Machine Operator: Carlos Shukla RN; Venus Jesus RN Scrub: Cayla Park RN L+D Nurse: Abena Cohn RN Patient Monitor Car Operator: Jonatan Kelly ST DATE OF SURGERY : 09/19/2024 Preoperative Diagnosis: * No Diagnosis Codes entered * Postoperative Diagnosis: * No Diagnosis Codes entered * Procedure(s): Procedure(s) (LRB): SECTION (N/A) Operative Findings: Normal uterus, fallopian tubes, and ovaries. Single placenta and two umbilical arteries. Estimated Blood Loss: 800 mL Intraoperative Fluids: 750 mL Intraoperative Fluids: 200 mL Specimens: Placenta Implants: Nothing was implanted during the procedure Blood/Blood Products Transfused: 0 mls Complications: None Condition on Discharge from the operating room was stable Rey Quinonez MD Date: 09/19/2024 Time: 4:42 PM Cosigned by Josefina Peter MD at 10/05/2024 8:45 PM WIRE STRAIGHTENING MACHINE OPERATOR STRAIGHTENING MACHINE OPERATOR STRAIGHTENING MACHINE OPERATOR Associated attestation - Josefina Peter MD - 10/05/2024 8:45 PM WIRE STRAIGHTENING MACHINE OPERATOR I was present for the entire procedure. Uncomplicated primary LTCS for MC/DA twins with discordant growth and preeclampsia with severe features. Josefina Peter MD * Plan of Care - Milla Cazares RN - 09/18/2024 8:36 PM CST Problem: General Patient Education Goal: Knowledge of disease process, condition or treatment will be improved Outcome: Progressing Problem: Medication Regimen Goal: Knowledge of medication regimen will improve Outcome: Progressing Problem: Additional OB Conditions Goal: Will remain free from complications related to obstetric conditions Outcome: Progressing Goal: Mother's verbalization of understanding around OB conditions and complications will improve Outcome: Progressing Problem: Lack of Knowledge Goal: Ability to develop a pain control plan will improve Outcome: Progressing Problem: Medication Goal: Satisfaction with pain management medication regimen will improve Outcome: Progressing Problem: Sensory Goal: Ability to identify factors that increase pain levels will improve while working to decrease the patient's pain levels Outcome: Progressing Problem: Coping Goal: Ability to cope will improve Outcome: Progressing Problem: Health Behavior Goal: Identification of resources available to assist in meeting health care needs will improve Outcome: Progressing Goals: Clinical Goals for the Shift: VSS, monitor bp, rest Practice Administrator Patient Centered Goal for Treatment: healthy mom and babies Summary: Milla Cazares RN STRAIGHTENING MACHINE OPERATOR * Plan of Care - eTvin Bateman RN - 09/18/2024 8:30 AM CST Goals: Clinical Goals for the Shift: VSS, reactive nst, pain control, rest Practice Administrator Patient Centered Goal for Treatment: healthy mom healthy babies Summary: Problem: General Patient Education Goal: Knowledge of disease process, condition or treatment will be improved Outcome: Progressing Problem: Medication Regimen Goal: Knowledge of medication regimen will improve Outcome: Progressing Problem: Lack of Knowledge Goal: Ability to develop a pain control plan will improve Outcome: Progressing Problem: Medication Goal: Satisfaction with pain management medication regimen will improve Outcome: 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 * Plan of Care - Arabella Esparza RN - 09/18/2024 12:47 AM CST Problem: General Patient Education Goal: Knowledge of disease process, condition or treatment will be improved Outcome: Progressing Problem: Medication Regimen Goal: Knowledge of medication regimen will improve Outcome: Progressing Problem: Additional OB Conditions Goal: Will remain free from complications related to obstetric conditions Outcome: Progressing Goal: Mother's verbalization of understanding around OB conditions and complications will improve Outcome: Progressing Problem: Lack of Knowledge Goal: Ability to develop a pain control plan will improve Outcome: Progressing Problem: Medication Goal: Satisfaction with pain management medication regimen will improve Outcome: Progressing Problem: Sensory Goal: Ability to identify factors that increase pain levels will improve while working to decrease the patient's pain levels Outcome: Progressing Problem: Coping Goal: Ability to cope will improve Outcome: Progressing Problem: Health Behavior Goal: Identification of resources available to assist in meeting health care needs will improve Outcome: Progressing Goals: Clinical Goals for the Shift: vs wnl, AM labs , rest Practice Administrator Patient Centered Goal for Treatment: healthy mom healthy babies Summary: Arabella Esparza RN STRAIGHTENING MACHINE OPERATOR * Plan of Care - Alejo Rose RN - 09/17/2024 10:47 AM WIRE STRAIGHTENING MACHINE OPERATOR Problem: General Patient Education Goal: Knowledge of disease process, condition or treatment will be improved Outcome: Progressing Problem: Medication Regimen Goal: Knowledge of medication regimen will improve Outcome: Progressing Problem: Additional OB Conditions Goal: Will remain free from complications related to obstetric conditions Outcome: Progressing Goal: Mother's verbalization of understanding around OB conditions and complications will improve Outcome: Progressing Problem: Lack of Knowledge Goal: Ability to develop a pain control plan will improve Outcome: Progressing Problem: Medication Goal: Satisfaction with pain management medication regimen will improve Outcome: Progressing Problem: Sensory Goal: Ability to identify factors that increase pain levels will improve while working to decrease the patient's pain levels Outcome: Progressing Problem: Coping Goal: Ability to cope will improve Outcome: Progressing Problem: Health Behavior Goal: Identification of resources available to assist in meeting health care needs will improve Outcome: Progressing Goals: Clinical Goals for the Shift: VSS, reactive nst, pain control, rest Practice Administrator Patient Centered Goal for Treatment: healthy mom healthy babies Summary: Alejo Rose RN STRAIGHTENING MACHINE OPERATOR * Plan of Care - Arabella Esparza RN - 09/16/2024 8:41 PM CST Problem: General Patient Education Goal: Knowledge of disease process, condition or treatment will be improved Outcome: Progressing Problem: Medication Regimen Goal: Knowledge of medication regimen will improve Outcome: Progressing Problem: Additional OB Conditions Goal: Will remain free from complications related to obstetric conditions Outcome: Progressing Goal: Mother's verbalization of understanding around OB conditions and complications will improve Outcome: Progressing Problem: Lack of Knowledge Goal: Ability to develop a pain control plan will improve Outcome: Progressing Problem: Medication Goal: Satisfaction with pain management medication regimen will improve Outcome: Progressing Problem: Sensory Goal: Ability to identify factors that increase pain levels will improve while working to decrease the patient's pain levels Outcome: Progressing Problem: Coping Goal: Ability to cope will improve Outcome: Progressing Problem: Health Behavior Goal: Identification of resources available to assist in meeting health care needs will improve Outcome: Progressing Goals: Clinical Goals for the Shift: vs wnl, rest Fdc Patient Centered Goal for Treatment: healthy mom healthy babies Summary: Arabella Esparza RN STRAIGHTENING MACHINE OPERATOR * Plan of Rohit - Alejo Rose RN - 09/16/2024 10:01 AM WIRE STRAIGHTENING MACHINE OPERATOR Problem: General Patient Education Goal: Knowledge of disease process, condition or treatment will be improved Outcome: Progressing Flowsheets (Taken 09/15/20242052 by Tash Borden, RN) Complications related to the disease process, condition or treatment will be avoided or minimized: Explain self-care Problem: Medication Regimen Goal: Knowledge of medication regimen will improve Outcome: Progressing Flowsheets (Taken 08/30/[id number] by Yoselin Moore, KRYSTEN) Knowledge of medication regimen will improve: Assess physical and emotional readiness to learn Assess comprehension of information provided about medications Provide realistic goals for learning Provide tailored teaching specific to age, educational level and preferred method Teach medication schedule Teach potential side effects Problem: Additional OB Conditions Goal: Will remain free from complications related to obstetric conditions Outcome: Progressing Flowsheets (Taken 09/01/2024 1118 by Nicole Mercado RN) Will remain free of complications related to obstetric conditions: Monitor movement Monitor heart rate Monitor blood pressure Assess visual and neuro statuses Assess vaginal bleeding or drainage Monitor signs of labor and uterine contractions Goal: Mother's verbalization of understanding around OB conditions and complications will improve Outcome: Progressing Flowsheets (Taken 09/05/2024 1053) Mothers verbalization of understanding around OB conditions and complications will improve: Teach counting of movement Problem: Lack of Knowledge Goal: Ability to develop a pain control plan will improve Outcome: Progressing Flowsheets (Taken 09/05/2024 1053) Ability to develop a pain control plan will improve: Educate pain scale for assessing level of pain Problem: Medication Goal: Satisfaction with pain management medication regimen will improve Outcome: Progressing Problem: Sensory Goal: Ability to identify factors that increase pain levels will improve while working to decrease the patient's pain levels Outcome: Progressing Problem: Coping Goal: Ability to cope will improve Outcome: Progressing Problem: Health Behavior Goal: Identification of resources available to assist in meeting health care needs will improve Outcome: Progressing Goals: Clinical Goals for the Shift: VSS, reactive nst, no worsening s/s of PreE, pain control, rest Practice Administrator Patient Centered Goal for Treatment: healthy mom healthy babies Summary: Alejo Roes RN STRAIGHTENING MACHINE OPERATOR * Plan of Care - Tash Borden RN - 09/15/2024 8:54 PM CST Problem: General Patient Education Goal: Knowledge of disease process, condition or treatment will be improved Outcome: Progressing Flowsheets (Taken 09/15/20242052) Complications related to the disease process, condition or treatment will be avoided or minimized: Explain self-care Problem: Medication Regimen Goal: Knowledge of medication regimen will improve Outcome: Progressing Problem: Additional OB Conditions Goal: Will remain free from complications related to obstetric conditions Outcome: Progressing Goal: Mother's verbalization of understanding around OB conditions and complications will improve Outcome: Progressing Problem: Lack of Knowledge Goal: Ability to develop a pain control plan will improve Outcome: Progressing Problem: Medication Goal: Satisfaction with pain management medication regimen will improve Outcome: Progressing Flowsheets (Taken 09/15/20242052) Satisfaction with pain management medication regimen will improve: Assess satisfaction with pain management regimen Problem: Sensory Goal: Ability to identify factors that increase pain levels will improve while working to decrease the patient's pain levels Outcome: Progressing Flowsheets (Taken 09/15/20242052) Ability to identify factors that increase pain levels will improve while working to decrease patients pain levels: Assess pain status Problem: Coping Goal: Ability to cope will improve Outcome: Progressing Flowsheets (Taken 09/15/20242052) Ability to cope will Improve: Provide emotional support Problem: Health Behavior Goal: Identification of resources available to assist in meeting health care needs will improve Outcome: Progressing Goals: Clinical Goals for the Shift: VSS, adequate pain control < 4 Practice Administrator Patient Centered Goal for Treatment: healthy mom healthy babies Summary: STRAIGHTENING MACHINE OPERATOR * Plan of Care - Livia Meléndez RN - 09/15/2024 9:13 AM CST Problem: General Patient Education Goal: Knowledge of disease process, condition or treatment will be improved Outcome: Progressing Problem: Medication Regimen Goal: Knowledge of medication regimen will improve Outcome: Progressing Problem: Additional OB Conditions Goal: Will remain free from complications related to obstetric conditions Outcome: Progressing Goal: Mother's verbalization of understanding around OB conditions and complications will improve Outcome: Progressing Problem: Lack of Knowledge Goal: Ability to develop a pain control plan will improve Outcome: Progressing Problem: Medication Goal: Satisfaction with pain management medication regimen will improve Outcome: Progressing Problem: Sensory Goal: Ability to identify factors that increase pain levels will improve while working to decrease the patient's pain levels Outcome: Progressing Problem: Coping Goal: Ability to cope will improve Outcome: Progressing Problem: Health Behavior Goal: Identification of resources available to assist in meeting health care needs will improve Outcome: Progressing Goals: Clinical Goals for the Shift: BP management, reactive NST, learn about next steps in care Fdc Patient Centered Goal for Treatment: healthy mom healthy babies Livia Meléndez RN STRAIGHTENING MACHINE OPERATOR * Plan of Care - Maureen Keith RN - 09/14/2024 11:08 AM WIRE STRAIGHTENING MACHINE OPERATOR Problem: General Patient Education Goal: Knowledge of disease process, condition or treatment will be improved Outcome: Progressing Problem: Medication Regimen Goal: Knowledge of medication regimen will improve Outcome: Progressing Problem: Additional OB Conditions Goal: Will remain free from complications related to obstetric conditions Outcome: Progressing Goal: Mother's verbalization of understanding around OB conditions and complications will improve Outcome: Progressing Problem: Lack of Knowledge Goal: Ability to develop a pain control plan will improve Outcome: Progressing Problem: Medication Goal: Satisfaction with pain management medication regimen will improve Outcome: Progressing Problem: Sensory Goal: Ability to identify factors that increase pain levels will improve while working to decrease the patient's pain levels Outcome: Progressing Problem: Coping Goal: Ability to cope will improve Outcome: Progressing Problem: Health Behavior Goal: Identification of resources available to assist in meeting health care needs will improve Outcome: Progressing Goals: Clinical Goals for the Shift: VSS, monitor for s/s of worsening preE, reactive NST Practice Administrator Patient Centered Goal for Treatment: healthy mom healthy babies Summary: Maureen Keith RN STRAIGHTENING MACHINE OPERATOR * Plan of Care - oPlly Umana RN - 09/13/2024 9:50 PM CST Problem: General Patient Education Goal: Knowledge of disease process, condition or treatment will be improved Outcome: Progressing Problem: Medication Regimen Goal: Knowledge of medication regimen will improve Outcome: Progressing Problem: Additional OB Conditions Goal: Will remain free from complications related to obstetric conditions Outcome: Progressing Goal: Mother's verbalization of understanding around OB conditions and complications will improve Outcome: Progressing Problem: Lack of Knowledge Goal: Ability to develop a pain control plan will improve Outcome: Progressing Problem: Medication Goal: Satisfaction with pain management medication regimen will improve Outcome: Progressing Problem: Sensory Goal: Ability to identify factors that increase pain levels will improve while working to decrease the patient's pain levels Outcome: Progressing Problem: Coping Goal: Ability to cope will improve Outcome: Progressing Problem: Health Behavior Goal: Identification of resources available to assist in meeting health care needs will improve Outcome: Progressing Clinical Goals for the Shift: VSS, monitor for worsening s/s of preE, pain control, rest Practice Administrator Patient Centered Goal for Treatment: healthy mom healthy babies STRAIGHTENING MACHINE OPERATOR * Plan of Care - Blessing Barone RN - 09/13/2024 10:18 AM CST Problem: General Patient Education Goal: Knowledge of disease process, condition or treatment will be improved Outcome: Progressing Problem: Additional OB Conditions Goal: Will remain free from complications related to obstetric conditions Outcome: Progressing Goal: Mother's verbalization of understanding around OB conditions and complications will improve Outcome: Progressing Problem: Medication Regimen Goal: Knowledge of medication regimen will improve Outcome: Progressing Problem: Lack of Knowledge Goal: Ability to develop a pain control plan will improve Outcome: Progressing Problem: Medication Goal: Satisfaction with pain management medication regimen will improve Outcome: Progressing Problem: Sensory Goal: Ability to identify factors that increase pain levels will improve while working to decrease the patient's pain levels Outcome: Progressing Problem: Coping Goal: Ability to cope will improve Outcome: Progressing Problem: Health Behavior Goal: Identification of resources available to assist in meeting health care needs will improve Outcome: Progressing Goals: Clinical Goals for the Shift: VS WNL; monitor for s/s of PreE; Reactive NST; promote rest Practice Administrator Patient Centered Goal for Treatment: healthy mom and healthy baby Blessing Barone RN STRAIGHTENING MACHINE OPERATOR * Plan of Care - Polly Umana RN - 09/12/2024 10:26 PM CST Problem: General Patient Education Goal: Knowledge of disease process, condition or treatment will be improved Outcome: Progressing Problem: Medication Regimen Goal: Knowledge of medication regimen will improve Outcome: Progressing Problem: Additional OB Conditions Goal: Will remain free from complications related to obstetric conditions Outcome: Progressing Goal: Mother's verbalization of understanding around OB conditions and complications will improve Outcome: Progressing Problem: Lack of Knowledge Goal: Ability to develop a pain control plan will improve Outcome: Progressing Problem: Medication Goal: Satisfaction with pain management medication regimen will improve Outcome: Progressing Problem: Sensory Goal: Ability to identify factors that increase pain levels will improve while working to decrease the patient's pain levels Outcome: Progressing Problem: Coping Goal: Ability to cope will improve Outcome: Progressing Problem: Health Behavior Goal: Identification of resources available to assist in meeting health care needs will improve Outcome: Progressing Clinical Goals for the Shift: VSS, monitor for worsening s/s of preE, pain control, rest Practice Administrator Patient Centered Goal for Treatment: healthy mom healthy baby STRAIGHTENING MACHINE OPERATOR * Plan of Care - Blessing Barone RN - 09/12/2024 10:10 AM CST Problem: General Patient Education Goal: Knowledge of disease process, condition or treatment will be improved Outcome: Progressing Problem: Additional OB Conditions Goal: Will remain free from complications related to obstetric conditions Outcome: Progressing Goal: Mother's verbalization of understanding around OB conditions and complications will improve Outcome: Progressing Problem: Medication Regimen Goal: Knowledge of medication regimen will improve Outcome: Progressing Problem: Lack of Knowledge Goal: Ability to develop a pain control plan will improve Outcome: Progressing Problem: Medication Goal: Satisfaction with pain management medication regimen will improve Outcome: Progressing Problem: Sensory Goal: Ability to identify factors that increase pain levels will improve while working to decrease the patient's pain levels Outcome: Progressing Problem: Coping Goal: Ability to cope will improve Outcome: Progressing Problem: Health Behavior Goal: Identification of resources available to assist in meeting health care needs will improve Outcome: Progressing Goals: Clinical Goals for the Shift: VS WNL; Reactive NST; monitor for s/s of PreE; promote rest Practice Administrator Patient Centered Goal for Treatment: healthy mom and healthy babies Blessing Barone RN STRAIGHTENING MACHINE OPERATOR * Plan of Care - Polly Umana RN - 09/11/2024 9:21 PM CST Problem: General Patient Education Goal: Knowledge of disease process, condition or treatment will be improved Outcome: Progressing Problem: Medication Regimen Goal: Knowledge of medication regimen will improve Outcome: Progressing Problem: Additional OB Conditions Goal: Will remain free from complications related to obstetric conditions Outcome: Progressing Goal: Mother's verbalization of understanding around OB conditions and complications will improve Outcome: Progressing Problem: Lack of Knowledge Goal: Ability to develop a pain control plan will improve Outcome: Progressing Problem: Medication Goal: Satisfaction with pain management medication regimen will improve Outcome: Progressing Problem: Sensory Goal: Ability to identify factors that increase pain levels will improve while working to decrease the patient's pain levels Outcome: Progressing Problem: Coping Goal: Ability to cope will improve Outcome: Progressing Problem: Health Behavior Goal: Identification of resources available to assist in meeting health care needs will improve Outcome: Progressing Clinical Goals for the Shift: VSS, monitor for worsening s/s of preE, pain control, rest Fdc Patient Centered Goal for Treatment: healthy mom healthy baby STRAIGHTENING MACHINE OPERATOR * Plan of Care - Dave Juarez RN - 09/11/2024 10:32 AM CST Problem: General Patient Education Goal: Knowledge of disease process, condition or treatment will be improved Outcome: Progressing Problem: Medication Regimen Goal: Knowledge of medication regimen will improve Outcome: Progressing Problem: Additional OB Conditions Goal: Will remain free from complications related to obstetric conditions Outcome: Progressing Goal: Mother's verbalization of understanding around OB conditions and complications will improve Outcome: Progressing Problem: Lack of Knowledge Goal: Ability to develop a pain control plan will improve Outcome: Progressing Problem: Medication Goal: Satisfaction with pain management medication regimen will improve Outcome: Progressing Problem: Sensory Goal: Ability to identify factors that increase pain levels will improve while working to decrease the patient's pain levels Outcome: Progressing Problem: Coping Goal: Ability to cope will improve Outcome: Progressing Problem: Health Behavior Goal: Identification of resources available to assist in meeting health care needs will improve Outcome: Progressing Goals: Clinical Goals for the Shift: vss, BP monitoring, reactive NSTx2, rest Fdc Patient Centered Goal for Treatment: healthy mom and healthy babies Summary: STRAIGHTENING MACHINE OPERATOR * Plan of Care - Jessica Morel RN - 09/10/2024 8:56 PM CST Problem: General Patient Education Goal: Knowledge of disease process, condition or treatment will be improved Outcome: Progressing Problem: Medication Regimen Goal: Knowledge of medication regimen will improve Outcome: Progressing Problem: Additional OB Conditions Goal: Will remain free from complications related to obstetric conditions Outcome: Progressing Goal: Mother's verbalization of understanding around OB conditions and complications will improve Outcome: Progressing Problem: Lack of Knowledge Goal: Ability to develop a pain control plan will improve Outcome: Progressing Problem: Medication Goal: Satisfaction with pain management medication regimen will improve Outcome: Progressing Problem: Sensory Goal: Ability to identify factors that increase pain levels will improve while working to decrease the patient's pain levels Outcome: Progressing Problem: Coping Goal: Ability to cope will improve Outcome: Progressing Problem: Health Behavior Goal: Identification of resources available to assist in meeting health care needs will improve Outcome: Progressing Goals: Clinical Goals for the Shift: VSS Practice Administrator Patient Centered Goal for Treatment: healthy mom and healthy babies STRAIGHTENING MACHINE OPERATOR * Plan of Care - Dave Juarez RN - 09/10/2024 10:36 AM CST Problem: General Patient Education Goal: Knowledge of disease process, condition or treatment will be improved Outcome: Progressing Problem: Medication Regimen Goal: Knowledge of medication regimen will improve Outcome: Progressing Problem: Additional OB Conditions Goal: Will remain free from complications related to obstetric conditions Outcome: Progressing Goal: Mother's verbalization of understanding around OB conditions and complications will improve Outcome: Progressing Problem: Lack of Knowledge Goal: Ability to develop a pain control plan will improve Outcome: Progressing Problem: Medication Goal: Satisfaction with pain management medication regimen will improve Outcome: Progressing Problem: Sensory Goal: Ability to identify factors that increase pain levels will improve while working to decrease the patient's pain levels Outcome: Progressing Problem: Coping Goal: Ability to cope will improve Outcome: Progressing Problem: Health Behavior Goal: Identification of resources available to assist in meeting health care needs will improve Outcome: Progressing Goals: Clinical Goals for the Shift: vss, reactive NSTx2, BP control, rest Fdc Patient Centered Goal for Treatment: healthy mom and healthy babies Summary: STRAIGHTENING MACHINE OPERATOR * Plan of Care - Selena Last RN - 09/10/2024 12:49 AM CST Problem: General Patient Education Goal: Knowledge of disease process, condition or treatment will be improved Outcome: Progressing Problem: Medication Regimen Goal: Knowledge of medication regimen will improve Outcome: Progressing Problem: Additional OB Conditions Goal: Will remain free from complications related to obstetric conditions Outcome: Progressing Goal: Mother's verbalization of understanding around OB conditions and complications will improve Outcome: Progressing Problem: Lack of Knowledge Goal: Ability to develop a pain control plan will improve Outcome: Progressing Problem: Medication Goal: Satisfaction with pain management medication regimen will improve Outcome: Progressing Problem: Sensory Goal: Ability to identify factors that increase pain levels will improve while working to decrease the patient's pain levels Outcome: Progressing Problem: Coping Goal: Ability to cope will improve Outcome: Progressing Problem: Health Behavior Goal: Identification of resources available to assist in meeting health care needs will improve Outcome: Progressing Goals: Clinical Goals for the Shift: VSS, monitor for s/s of complications related to pre-E, rest Practice Administrator Patient Centered Goal for Treatment: healthy mom and healthy babies Summary: Patient resting in bed. Patient had no complaints of pain, headache, cramping or ctx. Patient VSS. STRAIGHTENING MACHINE OPERATOR * Plan of Care - Cha Kelly RN - 09/09/2024 11:58 AM CST Problem: General Patient Education Goal: Knowledge of disease process, condition or treatment will be improved Outcome: Progressing Problem: Medication Regimen Goal: Knowledge of medication regimen will improve Outcome: Progressing Problem: Additional OB Conditions Goal: Will remain free from complications related to obstetric conditions Outcome: Progressing Goal: Mother's verbalization of understanding around OB conditions and complications will improve Outcome: Progressing Problem: Lack of Knowledge Goal: Ability to develop a pain control plan will improve Outcome: Progressing Problem: Medication Goal: Satisfaction with pain management medication regimen will improve Outcome: Progressing Problem: Sensory Goal: Ability to identify factors that increase pain levels will improve while working to decrease the patient's pain levels Outcome: Progressing Problem: Coping Goal: Ability to cope will improve Outcome: Progressing Problem: Health Behavior Goal: Identification of resources available to assist in meeting health care needs will improve Outcome: Progressing Goals: Clinical Goals for the Shift: VSS, monitor for complications related to preeclampsia, reactive and reassuring monitoring x2, encourage ambulation and positive coping mechanisms. Practice Administrator Patient Centered Goal for Treatment: healthy mom and healthy babies Summary:Will continue to monitor patient progress towards clinical goals. STRAIGHTENING MACHINE OPERATOR * Plan of Care - Arabella Esparza RN - 09/08/2024 9:42 PM CST Problem: Discharge Planning Goal: Understanding discharge needs will improve Outcome: Progressing Problem: General Patient Education Goal: Knowledge of disease process, condition or treatment will be improved Outcome: Progressing Problem: Fall Risk Goal: Ability to state ways to decrease the risk of falls will improve Outcome: Progressing Goal: Will remain free from falls Outcome: Progressing Goal: Will remain free from injury from falls Outcome: Progressing Problem: Medication Regimen Goal: Knowledge of medication regimen will improve Outcome: Progressing Problem: Additional OB Conditions Goal: Will remain free from complications related to obstetric conditions Outcome: Progressing Goal: Mother's verbalization of understanding around OB conditions and complications will improve Outcome: Progressing Problem: Lack of Knowledge Goal: Ability to develop a pain control plan will improve Outcome: Progressing Problem: Medication Goal: Satisfaction with pain management medication regimen will improve Outcome: Progressing Problem: Sensory Goal: Ability to identify factors that increase pain levels will improve while working to decrease the patient's pain levels Outcome: Progressing Problem: Coping Goal: Ability to cope will improve Outcome: Progressing Problem: Health Behavior Goal: Identification of resources available to assist in meeting health care needs will improve Outcome: Progressing Goals: Clinical Goals for the Shift: vs wnl, am lab draw, controlled BP Fdc Patient Centered Goal for Treatment: healthy mom and healthy babies Summary: Arabella Esparza RN STRAIGHTENING MACHINE OPERATOR * Plan of Care - Blessing Barone RN - 09/08/2024 7:53 AM CST Problem: Discharge Planning Goal: Understanding discharge needs will improve Outcome: Progressing Problem: General Patient Education Goal: Knowledge of disease process, condition or treatment will be improved Outcome: Progressing Problem: Additional OB Conditions Goal: Will remain free from complications related to obstetric conditions Outcome: Progressing Goal: Mother's verbalization of understanding around OB conditions and complications will improve Outcome: Progressing Problem: Fall Risk Goal: Ability to state ways to decrease the risk of falls will improve Outcome: Progressing Goal: Will remain free from falls Outcome: Progressing Goal: Will remain free from injury from falls Outcome: Progressing Problem: Medication Regimen Goal: Knowledge of medication regimen will improve Outcome: Progressing Problem: Lack of Knowledge Goal: Ability to develop a pain control plan will improve Outcome: Progressing Problem: Medication Goal: Satisfaction with pain management medication regimen will improve Outcome: Progressing Problem: Sensory Goal: Ability to identify factors that increase pain levels will improve while working to decrease the patient's pain levels Outcome: Progressing Problem: Coping Goal: Ability to cope will improve Outcome: Progressing Problem: Health Behavior Goal: Identification of resources available to assist in meeting health care needs will improve Outcome: Progressing Goals: Clinical Goals for the Shift: VS WNL; pain control; Reactive NST; promote rest Fdc Patient Centered Goal for Treatment: healthy mom and healthy babies Blessing Barone RN STRAIGHTENING MACHINE OPERATOR * Plan of Rohit - Torrie Cline RN - 09/07/2024 11:26 PM CST Goals: Clinical Goals for the Shift: vss, pain control, monitor symptoms of pre-E, rest Practice Administrator Patient Centered Goal for Treatment: healthy mom and babies Problem: Discharge Planning Goal: Understanding discharge needs will improve Outcome: Progressing Problem: General Patient Education Goal: Knowledge of disease process, condition or treatment will be improved Outcome: Progressing Problem: Fall Risk Goal: Ability to state ways to decrease the risk of falls will improve Outcome: Progressing Goal: Will remain free from falls Outcome: Progressing Goal: Will remain free from injury from falls Outcome: Progressing Problem: Medication Regimen Goal: Knowledge of medication regimen will improve Outcome: Progressing Problem: Additional OB Conditions Goal: Will remain free from complications related to obstetric conditions Outcome: Progressing Goal: Mother's verbalization of understanding around OB conditions and complications will improve Outcome: Progressing Problem: Lack of Knowledge Goal: Ability to develop a pain control plan will improve Outcome: Progressing Problem: Medication Goal: Satisfaction with pain management medication regimen will improve Outcome: Progressing Problem: Sensory Goal: Ability to identify factors that increase pain levels will improve while working to decrease the patient's pain levels Outcome: Progressing Problem: Coping Goal: Ability to cope will improve Outcome: Progressing Problem: Health Behavior Goal: Identification of resources available to assist in meeting health care needs will improve Outcome: Progressing Summary: Torrie Cline RN STRAIGHTENING MACHINE OPERATOR * Plan of Care - Alejo Rose RN - 09/07/2024 9:11 AM WIRE STRAIGHTENING MACHINE OPERATOR Problem: Discharge Planning Goal: Understanding discharge needs will improve Outcome: Progressing Flowsheets (Taken 09/05/2024 1053) Understanding of discharge needs will improve: Identify discharge barriers Problem: General Patient Education Goal: Knowledge of disease process, condition or treatment will be improved Outcome: Progressing Flowsheets (Taken 09/01/2024 1118 by Nicole Mercado RN) Complications related to the disease process, condition or treatment will be avoided or minimized: Teach medications Discuss information regarding psycho/social/spiritual needs Problem: Fall Risk Goal: Ability to state ways to decrease the risk of falls will improve Outcome: Progressing Goal: Will remain free from falls Outcome: Progressing Goal: Will remain free from injury from falls Outcome: Progressing Problem: Medication Regimen Goal: Knowledge of medication regimen will improve Outcome: Progressing Problem: Additional OB Conditions Goal: Will remain free from complications related to obstetric conditions Outcome: Progressing Flowsheets (Taken 09/01/2024 1118 by Nicole Mercado RN) Will remain free of complications related to obstetric conditions: Monitor movement Monitor heart rate Monitor blood pressure Assess visual and neuro statuses Assess vaginal bleeding or drainage Monitor signs of labor and uterine contractions Goal: Mother's verbalization of understanding around OB conditions and complications will improve Outcome: Progressing Flowsheets (Taken 09/05/2024 1053) Mothers verbalization of understanding around OB conditions and complications will improve: Teach counting of movement Problem: Lack of Knowledge Goal: Ability to develop a pain control plan will improve Outcome: Progressing Problem: Medication Goal: Satisfaction with pain management medication regimen will improve Outcome: Progressing Problem: Sensory Goal: Ability to identify factors that increase pain levels will improve while working to decrease the patient's pain levels Outcome: Progressing Problem: Coping Goal: Ability to cope will improve Outcome: Progressing Problem: Health Behavior Goal: Identification of resources available to assist in meeting health care needs will improve Outcome: Progressing Goals: Clinical Goals for the Shift: VSS, reactive nst, no worsening s/s of pre E, pain control, rest Practice Administrator Patient Centered Goal for Treatment: healthy mom and baby Summary: Alejo Rose RN STRAIGHTENING MACHINE OPERATOR * Plan of Care - Jenn Mcallister RN - 09/06/2024 10:01 PM CST Problem: Discharge Planning Goal: Understanding discharge needs will improve 09/06/[id number] by Jenn Mcallister RN Outcome: Progressing Problem: General Patient Education Goal: Knowledge of disease process, condition or treatment will be improved 09/06/20242199 by Jenn Mcallister RN Outcome: Progressing Problem: Fall Risk Goal: Ability to state ways to decrease the risk of falls will improve 09/06/20242199 by Jenn Mcallister RN Outcome: Progressing Goal: Will remain free from falls 09/06/20242199 by Jenn Mcallister RN Outcome: Progressing Goal: Will remain free from injury from falls 09/06/20242199 by Jenn Mcallister RN Outcome: Progressing Problem: Medication Regimen Goal: Knowledge of medication regimen will improve 09/06/20242199 by Jenn Mcallister RN Outcome: Progressing Problem: Additional OB Conditions Goal: Will remain free from complications related to obstetric conditions 09/06/20242199 by Jenn Mcallister RN Outcome: Progressing Goal: Mother's verbalization of understanding around OB conditions and complications will improve 09/06/20242199 by Jenn Mcallister RN Outcome: Progressing Problem: Lack of Knowledge Goal: Ability to develop a pain control plan will improve 09/06/20242199 by Jenn Mcallister RN Outcome: Progressing Problem: Medication Goal: Satisfaction with pain management medication regimen will improve 09/06/20242199 by Jenn Mcallister RN Outcome: Progressing Problem: Sensory Goal: Ability to identify factors that increase pain levels will improve while working to decrease the patient's pain levels 09/06/20242199 by Jenn Mcallister RN Outcome: Progressing Problem: Coping Goal: Ability to cope will improve 09/06/20242199 by Jenn Mcallister RN Outcome: Progressing Problem: Health Behavior Goal: Identification of resources available to assist in meeting health care needs will improve 09/06/20242199 by Jenn Mcallister RN Outcome: Progressing Goals: Clinical Goals for the Shift: VSS; NST; BP monitoring; medication administration; pain management Fdc Patient Centered Goal for Treatment: healthy mom and baby STRAIGHTENING MACHINE OPERATOR * Plan of Care - Maria Luisa Sawyer RN - 09/06/2024 11:46 AM WIRE STRAIGHTENING MACHINE OPERATOR Problem: Discharge Planning Goal: Understanding discharge needs will improve Outcome: Progressing Problem: Fall Risk Goal: Ability to state ways to decrease the risk of falls will improve Outcome: Progressing Problem: Coping Goal: Ability to cope will improve Outcome: Progressing Problem: Fall Risk Goal: Ability to state ways to decrease the risk of falls will improve Outcome: Progressing Problem: Coping Goal: Ability to cope will improve Outcome: Progressing Goals: Clinical Goals for the Shift: VSS; labs; BP monitoring Fdc Patient Centered Goal for Treatment: healthy mom and baby Summary: STRAIGHTENING MACHINE OPERATOR * Plan of Care - Jenn Mcallister RN - 09/05/2024 9:56 PM CST Problem: Discharge Planning Goal: Understanding discharge needs will improve Outcome: Progressing Problem: General Patient Education Goal: Knowledge of disease process, condition or treatment will be improved Outcome: Progressing Problem: Fall Risk Goal: Ability to state ways to decrease the risk of falls will improve Outcome: Progressing Goal: Will remain free from falls Outcome: Progressing Goal: Will remain free from injury from falls Outcome: Progressing Problem: Medication Regimen Goal: Knowledge of medication regimen will improve Outcome: Progressing Problem: Additional OB Conditions Goal: Will remain free from complications related to obstetric conditions Outcome: Progressing Goal: Mother's verbalization of understanding around OB conditions and complications will improve Outcome: Progressing Problem: Lack of Knowledge Goal: Ability to develop a pain control plan will improve Outcome: Progressing Problem: Medication Goal: Satisfaction with pain management medication regimen will improve Outcome: Progressing Problem: Sensory Goal: Ability to identify factors that increase pain levels will improve while working to decrease the patient's pain levels Outcome: Progressing Problem: Coping Goal: Ability to cope will improve Outcome: Progressing Problem: Health Behavior Goal: Identification of resources available to assist in meeting health care needs will improve Outcome: Progressing Goals: Clinical Goals for the Shift: VSS; labs; BP monitoring Practice Administrator Patient Centered Goal for Treatment: healthy mom and baby STRAIGHTENING MACHINE OPERATOR * Plan of Care - Alejo Rose RN - 09/05/2024 10:54 AM WIRE STRAIGHTENING MACHINE OPERATOR Problem: Discharge Planning Goal: Understanding discharge needs will improve Outcome: Progressing Flowsheets (Taken 09/05/2024 1053) Understanding of discharge needs will improve: Identify discharge barriers Problem: General Patient Education Goal: Knowledge of disease process, condition or treatment will be improved Outcome: Progressing Flowsheets (Taken 09/01/2024 1118 by Nicole Mercado, RN) Complications related to the disease process, condition or treatment will be avoided or minimized: Teach medications Discuss information regarding psycho/social/spiritual needs Problem: Fall Risk Goal: Ability to state ways to decrease the risk of falls will improve Outcome: Progressing Goal: Will remain free from falls Outcome: Progressing Goal: Will remain free from injury from falls Outcome: Progressing Flowsheets (Taken 09/05/2024 1053) Will remain free from injury from falls: Provide safe environment for conduction of activities of daily living in hospital environment Problem: Medication Regimen Goal: Knowledge of medication regimen will improve Outcome: Progressing Flowsheets (Taken 08/30/20242142 by Yoselin Moore, RN) Knowledge of medication regimen will improve: Assess physical and emotional readiness to learn Assess comprehension of information provided about medications Provide realistic goals for learning Provide tailored teaching specific to age, educational level and preferred method Teach medication schedule Teach potential side effects Problem: Additional OB Conditions Goal: Will remain free from complications related to obstetric conditions Outcome: Progressing Flowsheets (Taken 09/01/2024 111 by Nicole Mercado RN) Will remain free of complications related to obstetric conditions: Monitor movement Monitor heart rate Monitor blood pressure Assess visual and neuro statuses Assess vaginal bleeding or drainage Monitor signs of labor and uterine contractions Goal: Mother's verbalization of understanding around OB conditions and complications will improve Outcome: Progressing Flowsheets (Taken 09/05/20241052) Mothers verbalization of understanding around OB conditions and complications will improve: Teach counting of movement Problem: Lack of Knowledge Goal: Ability to develop a pain control plan will improve Outcome: Progressing Flowsheets (Taken 09/05/20241052) Ability to develop a pain control plan will improve: Educate pain scale for assessing level of pain Problem: Medication Goal: Satisfaction with pain management medication regimen will improve Outcome: Progressing Flowsheets (Taken 09/01/2024 111 by Nicole Mercado RN) Satisfaction with pain management medication regimen will improve: Assess satisfaction with pain management regimen Problem: Sensory Goal: Ability to identify factors that increase pain levels will improve while working to decrease the patient's pain levels Outcome: Progressing Flowsheets (Taken 09/05/20241052) Ability to identify factors that increase pain levels will improve while working to decrease patients pain levels: Assess pain status Provide hot or cold therapy Assess effects of pain control measures Problem: Coping Goal: Ability to cope will improve Outcome: Progressing Flowsheets (Taken 09/01/2024 111 by Nicole Mercado, KRYSTEN) Ability to cope will Improve: Encourage vebalization of feelings surrounding pain Provide emotional support Problem: Health Behavior Goal: Identification of resources available to assist in meeting health care needs will improve Outcome: Progressing Flowsheets (Taken 08/30/[id number] by Yoselin Moore, RN) Identification of resources available to assist in meeting health care needs will improve: Collaborate with pain management Collaborate with all therapies Goals: Clinical Goals for the Shift: VSS, reactive nst, no worsening s/s of preE, rest Fdc Patient Centered Goal for Treatment: healthy mom and baby Summary: Alejo Rose RN STRAIGHTENING MACHINE OPERATOR * Plan of Care - Arabella Esparza RN - 09/04/2024 9:05 PM CST Problem: Discharge Planning Goal: Understanding discharge needs will improve Outcome: Progressing Problem: General Patient Education Goal: Knowledge of disease process, condition or treatment will be improved Outcome: Progressing Problem: Fall Risk Goal: Ability to state ways to decrease the risk of falls will improve Outcome: Progressing Goal: Will remain free from falls Outcome: Progressing Goal: Will remain free from injury from falls Outcome: Progressing Problem: Medication Regimen Goal: Knowledge of medication regimen will improve Outcome: Progressing Problem: Additional OB Conditions Goal: Will remain free from complications related to obstetric conditions Outcome: Progressing Goal: Mother's verbalization of understanding around OB conditions and complications will improve Outcome: Progressing Problem: Lack of Knowledge Goal: Ability to develop a pain control plan will improve Outcome: Progressing Problem: Medication Goal: Satisfaction with pain management medication regimen will improve Outcome: Progressing Problem: Sensory Goal: Ability to identify factors that increase pain levels will improve while working to decrease the patient's pain levels Outcome: Progressing Problem: Coping Goal: Ability to cope will improve Outcome: Progressing Problem: Health Behavior Goal: Identification of resources available to assist in meeting health care needs will improve Outcome: Progressing Goals: Clinical Goals for the Shift: vs wnl, rest Fdc Patient Centered Goal for Treatment: D/C home safely after delivery Summary: Arabella Esparza RN STRAIGHTENING MACHINE OPERATOR * Plan of Care - Livia Meléndez RN - 09/04/2024 9:03 AM CST Problem: Discharge Planning Goal: Understanding discharge needs will improve Outcome: Progressing Problem: General Patient Education Goal: Knowledge of disease process, condition or treatment will be improved Outcome: Progressing Problem: Fall Risk Goal: Ability to state ways to decrease the risk of falls will improve Outcome: Progressing Goal: Will remain free from falls Outcome: Progressing Goal: Will remain free from injury from falls Outcome: Progressing Problem: Medication Regimen Goal: Knowledge of medication regimen will improve Outcome: Progressing Problem: Additional OB Conditions Goal: Will remain free from complications related to obstetric conditions Outcome: Progressing Goal: Mother's verbalization of understanding around OB conditions and complications will improve Outcome: Progressing Problem: Lack of Knowledge Goal: Ability to develop a pain control plan will improve Outcome: Progressing Problem: Medication Goal: Satisfaction with pain management medication regimen will improve Outcome: Progressing Problem: Sensory Goal: Ability to identify factors that increase pain levels will improve while working to decrease the patient's pain levels Outcome: Progressing Problem: Coping Goal: Ability to cope will improve Outcome: Progressing Problem: Health Behavior Goal: Identification of resources available to assist in meeting health care needs will improve Outcome: Progressing Goals: Clinical Goals for the Shift: BP management, VSS, reactive NST, learn about next steps in care Fdc Patient Centered Goal for Treatment: D/C home safely after delivery Livia Meléndez RN STRAIGHTENING MACHINE OPERATOR * Plan of Care - Arabella Esparza RN - 09/03/2024 8:40 PM CST Problem: Discharge Planning Goal: Understanding discharge needs will improve Outcome: Progressing Problem: General Patient Education Goal: Knowledge of disease process, condition or treatment will be improved Outcome: Progressing Problem: Fall Risk Goal: Ability to state ways to decrease the risk of falls will improve Outcome: Progressing Goal: Will remain free from falls Outcome: Progressing Goal: Will remain free from injury from falls Outcome: Progressing Problem: Medication Regimen Goal: Knowledge of medication regimen will improve Outcome: Progressing Problem: Additional OB Conditions Goal: Will remain free from complications related to obstetric conditions Outcome: Progressing Goal: Mother's verbalization of understanding around OB conditions and complications will improve Outcome: Progressing Problem: Lack of Knowledge Goal: Ability to develop a pain control plan will improve Outcome: Progressing Problem: Medication Goal: Satisfaction with pain management medication regimen will improve Outcome: Progressing Problem: Sensory Goal: Ability to identify factors that increase pain levels will improve while working to decrease the patient's pain levels Outcome: Progressing Problem: Coping Goal: Ability to cope will improve Outcome: Progressing Problem: Health Behavior Goal: Identification of resources available to assist in meeting health care needs will improve Outcome: Progressing Goals: Clinical Goals for the Shift: vs wnl, rest Practice Administrator Patient Centered Goal for Treatment: D/C home safely after delivery Summary: Arabella Esparza RN STRAIGHTENING MACHINE OPERATOR * Plan of Care - Livia Meléndez RN - 09/03/2024 9:30 AM CST Problem: Discharge Planning Goal: Understanding discharge needs will improve Outcome: Progressing Problem: General Patient Education Goal: Knowledge of disease process, condition or treatment will be improved Outcome: Progressing Problem: Additional OB Conditions Goal: Will remain free from complications related to obstetric conditions Outcome: Progressing Goal: Mother's verbalization of understanding around OB conditions and complications will improve Outcome: Progressing Problem: Fall Risk Goal: Ability to state ways to decrease the risk of falls will improve Outcome: Progressing Goal: Will remain free from falls Outcome: Progressing Goal: Will remain free from injury from falls Outcome: Progressing Problem: Medication Regimen Goal: Knowledge of medication regimen will improve Outcome: Progressing Problem: Lack of Knowledge Goal: Ability to develop a pain control plan will improve Outcome: Progressing Problem: Medication Goal: Satisfaction with pain management medication regimen will improve Outcome: Progressing Problem: Sensory Goal: Ability to identify factors that increase pain levels will improve while working to decrease the patient's pain levels Outcome: Progressing Problem: Coping Goal: Ability to cope will improve Outcome: Progressing Problem: Health Behavior Goal: Identification of resources available to assist in meeting health care needs will improve Outcome: Progressing Goals: Clinical Goals for the Shift: rest, VSS, BP management, pain management, reactive NST, learn about next steps in care [facility] Patient Centered Goal for Treatment: D/C home safely after delivery Livia Meléndez RN STRAIGHTENING MACHINE OPERATOR * Plan of Care - Denisa Bonilla RN - 09/02/2024 10:38 PM CST Goals: Problem: Discharge Planning Goal: Understanding discharge needs will improve Outcome: Progressing Problem: General Patient Education Goal: Knowledge of disease process, condition or treatment will be improved Outcome: Progressing Problem: Fall Risk Goal: Ability to state ways to decrease the risk of falls will improve Outcome: Progressing Goal: Will remain free from falls Outcome: Progressing Goal: Will remain free from injury from falls Outcome: Progressing Problem: Medication Regimen Goal: Knowledge of medication regimen will improve Outcome: Progressing Problem: Additional OB Conditions Goal: Will remain free from complications related to obstetric conditions Outcome: Progressing Goal: Mother's verbalization of understanding around OB conditions and complications will improve Outcome: Progressing Problem: Lack of Knowledge Goal: Ability to develop a pain control plan will improve Outcome: Progressing Problem: Medication Goal: Satisfaction with pain management medication regimen will improve Outcome: Progressing Problem: Sensory Goal: Ability to identify factors that increase pain levels will improve while working to decrease the patient's pain levels Outcome: Progressing Problem: Coping Goal: Ability to cope will improve Outcome: Progressing Problem: Health Behavior Goal: Identification of resources available to assist in meeting health care needs will improve Outcome: Progressing Clinical Goals for the Shift: VSS, rest Practice Administrator Patient Centered Goal for Treatment: D/C home safely after delivery Summary: Continue antepartum care. STRAIGHTENING MACHINE OPERATOR * Plan of Care - Livia Meléndez RN - 09/02/2024 9:33 AM CST Problem: Discharge Planning Goal: Understanding discharge needs will improve Outcome: Progressing Problem: General Patient Education Goal: Knowledge of disease process, condition or treatment will be improved Outcome: Progressing Problem: Additional OB Conditions Goal: Will remain free from complications related to obstetric conditions Outcome: Progressing Goal: Mother's verbalization of understanding around OB conditions and complications will improve Outcome: Progressing Problem: Medication Regimen Goal: Knowledge of medication regimen will improve Outcome: Progressing Problem: Lack of Knowledge Goal: Ability to develop a pain control plan will improve Outcome: Progressing Problem: Medication Goal: Satisfaction with pain management medication regimen will improve Outcome: Progressing Problem: Sensory Goal: Ability to identify factors that increase pain levels will improve while working to decrease the patient's pain levels Outcome: Progressing Problem: Coping Goal: Ability to cope will improve Outcome: Progressing Problem: Health Behavior Goal: Identification of resources available to assist in meeting health care needs will improve Outcome: Progressing Goals: Clinical Goals for the Shift: VSS, BP management, reactive NST, ambulation, shower Practice Administrator Patient Centered Goal for Treatment: healthy mom healthy babies Livia Meléndez, RN STRAIGHTENING MACHINE OPERATOR * Plan of Care - Polly Umana RN - 09/01/2024 10:29 PM CST Problem: Discharge Planning Goal: Understanding discharge needs will improve Outcome: Progressing Problem: General Patient Education Goal: Knowledge of disease process, condition or treatment will be improved Outcome: Progressing Problem: Fall Risk Goal: Ability to state ways to decrease the risk of falls will improve Outcome: Progressing Goal: Will remain free from falls Outcome: Progressing Goal: Will remain free from injury from falls Outcome: Progressing Problem: Medication Regimen Goal: Knowledge of medication regimen will improve Outcome: Progressing Problem: Additional OB Conditions Goal: Will remain free from complications related to obstetric conditions Outcome: Progressing Goal: Mother's verbalization of understanding around OB conditions and complications will improve Outcome: Progressing Problem: Lack of Knowledge Goal: Ability to develop a pain control plan will improve Outcome: Progressing Problem: Medication Goal: Satisfaction with pain management medication regimen will improve Outcome: Progressing Problem: Sensory Goal: Ability to identify factors that increase pain levels will improve while working to decrease the patient's pain levels Outcome: Progressing Problem: Coping Goal: Ability to cope will improve Outcome: Progressing Problem: Health Behavior Goal: Identification of resources available to assist in meeting health care needs will improve Outcome: Progressing Clinical Goals for the Shift: VSS, monitor for worsening s/s of preE, pain control, rest Practice Administrator Patient Centered Goal for Treatment: healthy mom healthy babies STRAIGHTENING MACHINE OPERATOR * Plan of Care - Nicole Mercado RN - 09/01/2024 11:20 AM CST Problem: General Patient Education Goal: Knowledge of disease process, condition or treatment will be improved Outcome: Progressing Flowsheets (Taken 09/01/2024 1118) Complications related to the disease process, condition or treatment will be avoided or minimized: Teach medications Discuss information regarding psycho/social/spiritual needs Problem: Additional OB Conditions Goal: Will remain free from complications related to obstetric conditions Outcome: Progressing Flowsheets (Taken 09/01/2024 1118) Will remain free of complications related to obstetric conditions: Monitor movement Monitor heart rate Monitor blood pressure Assess visual and neuro statuses Assess vaginal bleeding or drainage Monitor signs of labor and uterine contractions Goal: Mother's verbalization of understanding around OB conditions and complications will improve Outcome: Progressing Flowsheets (Taken 09/01/2024 111) Mothers verbalization of understanding around OB conditions and complications will improve: Discusssigns or symptoms to report to provider Problem: Medication Goal: Satisfaction with pain management medication regimen will improve Outcome: Progressing Flowsheets (Taken 09/01/2024 111) Satisfaction with pain management medication regimen will improve: Assess satisfaction with pain management regimen Problem: Coping Goal: Ability to cope will improve Outcome: Progressing Flowsheets (Taken 09/01/20241117) Ability to cope will Improve: Encourage vebalization of feelings surrounding pain Provide emotional support Goals: Clinical Goals for the Shift: Monitor VVS, NST, rest [facility]dc Patient Centered Goal for Treatment: positive outcomes for patient and babies STRAIGHTENING MACHINE OPERATOR * Plan of Care - Polly Umana RN - 08/31/2024 9:00 PM CST Problem: Discharge Planning Goal: Understanding discharge needs will improve Outcome: Progressing Problem: General Patient Education Goal: Knowledge of disease process, condition or treatment will be improved Outcome: Progressing Problem: Fall Risk Goal: Ability to state ways to decrease the risk of falls will improve Outcome: Progressing Goal: Will remain free from falls Outcome: Progressing Goal: Will remain free from injury from falls Outcome: Progressing Problem: Medication Regimen Goal: Knowledge of medication regimen will improve Outcome: Progressing Problem: Additional OB Conditions Goal: Will remain free from complications related to obstetric conditions Outcome: Progressing Problem: Lack of Knowledge Goal: Ability to develop a pain control plan will improve Outcome: Progressing Problem: Medication Goal: Satisfaction with pain management medication regimen will improve Outcome: Progressing Problem: Sensory Goal: Ability to identify factors that increase pain levels will improve while working to decrease the patient's pain levels Outcome: Progressing Problem: Coping Goal: Ability to cope will improve Outcome: Progressing Problem: Health Behavior Goal: Identification of resources available to assist in meeting health care needs will improve Outcome: Progressing Clinical Goals for the Shift: VSS, pain control, rest Practice Administrator Patient Centered Goal for Treatment: healthy mom healthy baby STRAIGHTENING MACHINE OPERATOR * Plan of Care - Dave Juarez RN - 08/31/2024 11:34 AM CST Problem: Discharge Planning Goal: Understanding discharge needs will improve Outcome: Progressing Problem: General Patient Education Goal: Knowledge of disease process, condition or treatment will be improved Outcome: Progressing Problem: Fall Risk Goal: Ability to state ways to decrease the risk of falls will improve Outcome: Progressing Goal: Will remain free from falls Outcome: Progressing Goal: Will remain free from injury from falls Outcome: Progressing Problem: Medication Regimen Goal: Knowledge of medication regimen will improve Outcome: Progressing Problem: Additional OB Conditions Goal: Will remain free from complications related to obstetric conditions Outcome: Progressing Problem: Lack of Knowledge Goal: Ability to develop a pain control plan will improve Outcome: Progressing Problem: Medication Goal: Satisfaction with pain management medication regimen will improve Outcome: Progressing Problem: Sensory Goal: Ability to identify factors that increase pain levels will improve while working to decrease the patient's pain levels Outcome: Progressing Problem: Coping Goal: Ability to cope will improve Outcome: Progressing Problem: Health Behavior Goal: Identification of resources available to assist in meeting health care needs will improve Outcome: Progressing Goals: Clinical Goals for the Shift: vss, reactive NSTx2, monitor BP, rest Practice Administrator Patient Centered Goal for Treatment: healthy mom and babies Summary: STRAIGHTENING MACHINE OPERATOR * Plan of Care - Yoselin Moore RN - 08/30/2024 9:43 PM WIRE STRAIGHTENING MACHINE OPERATOR Problem: General Patient Education Goal: Knowledge of disease process, condition or treatment will be improved Outcome: Progressing Flowsheets (Taken 08/30/20242142) Complications related to the disease process, condition or treatment will be avoided or minimized: Teach medications Discuss information regarding psycho/social/spiritual needs Problem: Medication Regimen Goal: Knowledge of medication regimen will improve Outcome: Progressing Flowsheets (Taken 08/30/20242142) Knowledge of medication regimen will improve: Assess physical and emotional readiness to learn Assess comprehension of information provided about medications Provide realistic goals for learning Provide tailored teaching specific to age, educational level and preferred method Teach medication schedule Teach potential side effects Problem: Health Behavior Goal: Identification of resources available to assist in meeting health care needs will improve Outcome: Progressing Flowsheets (Taken 08/30/20242142) Identification of resources available to assist in meeting health care needs will improve: Collaborate with pain management Collaborate with all therapies Goals: Clinical Goals for the Shift: vs wnl, bowel yanci, rest, monitor for s/s of severe PreE. Fdc Patient Centered Goal for Treatment: healthy mom and babies STRAIGHTENING MACHINE OPERATOR * Plan of Care - Cha Kelly RN - 08/30/2024 2:33 PM CST Problem: Discharge Planning Goal: Understanding discharge needs will improve Outcome: Progressing Problem: General Patient Education Goal: Knowledge of disease process, condition or treatment will be improved Outcome: Progressing Problem: Fall Risk Goal: Ability to state ways to decrease the risk of falls will improve Outcome: Progressing Goal: Will remain free from falls Outcome: Progressing Goal: Will remain free from injury from falls Outcome: Progressing Problem: Medication Regimen Goal: Knowledge of medication regimen will improve Outcome: Progressing Problem: Additional OB Conditions Goal: Will remain free from complications related to obstetric conditions Outcome: Progressing Problem: Lack of Knowledge Goal: Ability to develop a pain control plan will improve Outcome: Progressing Problem: Medication Goal: Satisfaction with pain management medication regimen will improve Outcome: Progressing Problem: Sensory Goal: Ability to identify factors that increase pain levels will improve while working to decrease the patient's pain levels Outcome: Progressing Problem: Coping Goal: Ability to cope will improve Outcome: Progressing Problem: Health Behavior Goal: Identification of resources available to assist in meeting health care needs will improve Outcome: Progressing Goals: Clinical Goals for the Shift: VSS, reactive and reassuring monitoring x2, encourage ambulation, promote positive coping skills. Fdc Patient Centered Goal for Treatment: healthy mom and babies Summary: Will continue to monitor patient progress towards clinical goals. STRAIGHTENING MACHINE OPERATOR * Plan of Care - Milla Cazares RN - 08/29/2024 9:04 PM CST Problem: Discharge Planning Goal: Understanding discharge needs will improve Outcome: Progressing Problem: General Patient Education Goal: Knowledge of disease process, condition or treatment will be improved Outcome: Progressing Problem: Fall Risk Goal: Ability to state ways to decrease the risk of falls will improve Outcome: Progressing Goal: Will remain free from falls Outcome: Progressing Goal: Will remain free from injury from falls Outcome: Progressing Problem: Medication Regimen Goal: Knowledge of medication regimen will improve Outcome: Progressing Problem: Additional OB Conditions Goal: Will remain free from complications related to obstetric conditions Outcome: Progressing Problem: Lack of Knowledge Goal: Ability to develop a pain control plan will improve Outcome: Progressing Problem: Medication Goal: Satisfaction with pain management medication regimen will improve Outcome: Progressing Problem: Sensory Goal: Ability to identify factors that increase pain levels will improve while working to decrease the patient's pain levels Outcome: Progressing Problem: Coping Goal: Ability to cope will improve Outcome: Progressing Problem: Health Behavior Goal: Identification of resources available to assist in meeting health care needs will improve Outcome: Progressing Goals: Clinical Goals for the Shift: VSS, monitor BP, rest Fdc Patient Centered Goal for Treatment: healthy mom and babies Summary: Milla Cazares RN STRAIGHTENING MACHINE OPERATOR * Plan of Care - Jessica Morel RN - 08/28/2024 10:31 PM CST Problem: Discharge Planning Goal: Understanding discharge needs will improve Outcome: Progressing Problem: General Patient Education Goal: Knowledge of disease process, condition or treatment will be improved Outcome: Progressing Problem: Fall Risk Goal: Ability to state ways to decrease the risk of falls will improve Outcome: Progressing Goal: Will remain free from falls Outcome: Progressing Goal: Will remain free from injury from falls Outcome: Progressing Problem: Medication Regimen Goal: Knowledge of medication regimen will improve Outcome: Progressing Problem: Additional OB Conditions Goal: Will remain free from complications related to obstetric conditions Outcome: Progressing Problem: Lack of Knowledge Goal: Ability to develop a pain control plan will improve Outcome: Progressing Problem: Medication Goal: Satisfaction with pain management medication regimen will improve Outcome: Progressing Problem: Sensory Goal: Ability to identify factors that increase pain levels will improve while working to decrease the patient's pain levels Outcome: Progressing Problem: Coping Goal: Ability to cope will improve Outcome: Progressing Problem: Health Behavior Goal: Identification of resources available to assist in meeting health care needs will improve Outcome: Progressing Goals: Clinical Goals for the Shift: VSS, monitor s/sx of preE Practice Administrator Patient Centered Goal for Treatment: healthy mom and healthy babies STRAIGHTENING MACHINE OPERATOR * Plan of Care - Dave Juarez RN - 08/27/2024 7:45 PM CST Problem: Discharge Planning Goal: Understanding discharge needs will improve Outcome: Progressing Problem: General Patient Education Goal: Knowledge of disease process, condition or treatment will be improved Outcome: Progressing Problem: Fall Risk Goal: Ability to state ways to decrease the risk of falls will improve Outcome: Progressing Goal: Will remain free from falls Outcome: Progressing Goal: Will remain free from injury from falls Outcome: Progressing Problem: Medication Regimen Goal: Knowledge of medication regimen will improve Outcome: Progressing Problem: Additional OB Conditions Goal: Will remain free from complications related to obstetric conditions Outcome: Progressing Problem: Lack of Knowledge Goal: Ability to develop a pain control plan will improve Outcome: Progressing Problem: Medication Goal: Satisfaction with pain management medication regimen will improve Outcome: Progressing Problem: Sensory Goal: Ability to identify factors that increase pain levels will improve while working to decrease the patient's pain levels Outcome: Progressing Problem: Coping Goal: Ability to cope will improve Outcome: Progressing Problem: Health Behavior Goal: Identification of resources available to assist in meeting health care needs will improve Outcome: Progressing Goals: Clinical Goals for the Shift: vss, BP monitoring, rest Fdc Patient Centered Goal for Treatment: healthy mom and healthy babies Summary: STRAIGHTENING MACHINE OPERATOR * Plan of Care - Blessing Barone RN - 08/27/2024 9:49 AM CST Problem: Discharge Planning Goal: Understanding discharge needs will improve Outcome: Progressing Problem: General Patient Education Goal: Knowledge of disease process, condition or treatment will be improved Outcome: Progressing Problem: Additional OB Conditions Goal: Will remain free from complications related to obstetric conditions Outcome: Progressing Problem: Fall Risk Goal: Ability to state ways to decrease the risk of falls will improve Outcome: Progressing Goal: Will remain free from falls Outcome: Progressing Goal: Will remain free from injury from falls Outcome: Progressing Problem: Medication Regimen Goal: Knowledge of medication regimen will improve Outcome: Progressing Problem: Lack of Knowledge Goal: Ability to develop a pain control plan will improve Outcome: Progressing Problem: Medication Goal: Satisfaction with pain management medication regimen will improve Outcome: Progressing Problem: Sensory Goal: Ability to identify factors that increase pain levels will improve while working to decrease the patient's pain levels Outcome: Progressing Problem: Coping Goal: Ability to cope will improve Outcome: Progressing Problem: Health Behavior Goal: Identification of resources available to assist in meeting health care needs will improve Outcome: Progressing Goals: Clinical Goals for the Shift: VS WNL; monitor for s/s of PreE; Reactive NST; promote rest Fdc Patient Centered Goal for Treatment: healthy mom and healthy babies Blessing Barone RN STRAIGHTENING MACHINE OPERATOR * Plan of Care - Jessica Morel RN - 08/26/2024 9:42 PM CST Problem: Discharge Planning Goal: Understanding discharge needs will improve Outcome: Progressing Problem: General Patient Education Goal: Knowledge of disease process, condition or treatment will be improved Outcome: Progressing Problem: Fall Risk Goal: Ability to state ways to decrease the risk of falls will improve Outcome: Progressing Goal: Will remain free from falls Outcome: Progressing Goal: Will remain free from injury from falls Outcome: Progressing Problem: Medication Regimen Goal: Knowledge of medication regimen will improve Outcome: Progressing Problem: Additional OB Conditions Goal: Will remain free from complications related to obstetric conditions Outcome: Progressing Problem: Lack of Knowledge Goal: Ability to develop a pain control plan will improve Outcome: Progressing Problem: Medication Goal: Satisfaction with pain management medication regimen will improve Outcome: Progressing Problem: Sensory Goal: Ability to identify factors that increase pain levels will improve while working to decrease the patient's pain levels Outcome: Progressing Problem: Coping Goal: Ability to cope will improve Outcome: Progressing Problem: Health Behavior Goal: Identification of resources available to assist in meeting health care needs will improve Outcome: Progressing Goals: Clinical Goals for the Shift: VSS, pain control, monitor s/sx of PreE Fdc Patient Centered Goal for Treatment: healthy mom and baby STRAIGHTENING MACHINE OPERATOR * Plan of Care - Michelle Lorenzo RN - 08/26/2024 9:16 AM CST Goals: Problem: Discharge Planning Goal: Understanding discharge needs will improve 08/26/2024915 by Michelle Lorenzo, RN Outcome: Progressing 08/26/2024915 by Michelle Lorenzo, RN Outcome: Progressing Problem: General Patient Education Goal: Knowledge of disease process, condition or treatment will be improved 08/26/2024915 by Michelle Lorenzo, RN Outcome: Progressing 08/26/2024915 by Michelle Lorenzo, RN Outcome: Progressing Problem: Fall Risk Goal: Ability to state ways to decrease the risk of falls will improve 08/26/2024915 by Michelle Lorenzo, RN Outcome: Progressing 08/26/2024915 by Michelle Lorenzo, RN Outcome: Progressing Goal: Will remain free from falls 08/26/2024915 by Michelle Lorenzo, RN Outcome: Progressing 08/26/2024915 by Michelle Lorenzo, RN Outcome: Progressing Goal: Will remain free from injury from falls 08/26/2024915 by Michelle Lorenzo, RN Outcome: Progressing 08/26/2024915 by Michelle Lorenzo, RN Outcome: Progressing Problem: Medication Regimen Goal: Knowledge of medication regimen will improve 08/26/2024915 by Michelle Lorenzo, RN Outcome: Progressing 08/26/2024915 by Michelle Lorenzo, RN Outcome: Progressing Problem: Additional OB Conditions Goal: Will remain free from complications related to obstetric conditions 08/26/2024915 by Michelle Lorenzo, RN Outcome: Progressing 08/26/2024915 by Michelle Lorenzo, RN Outcome: Progressing Problem: Lack of Knowledge Goal: Ability to develop a pain control plan will improve 08/26/2024915 by Michelle Lorenzo, RN Outcome: Progressing 08/26/2024915 by Michelle Lorenzo, RN Outcome: Progressing Problem: Medication Goal: Satisfaction with pain management medication regimen will improve 08/26/2024915 by Michelle Lorenzo RN Outcome: Progressing 08/26/2024915 by Michelle Lorenzo RN Outcome: Progressing Problem: Sensory Goal: Ability to identify factors that increase pain levels will improve while working to decrease the patient's pain levels 08/26/2024915 by Michelle Lorenzo, KRYSTEN Outcome: Progressing 08/26/2024915 by Michelle Lorenzo, RN Outcome: Progressing Problem: Coping Goal: Ability to cope will improve 08/26/2024915 by Michelle Lorenzo, KRYSTEN Outcome: Progressing 08/26/2024915 by Michelle Lorenzo, KRYSTEN Outcome: Progressing Problem: Health Behavior Goal: Identification of resources available to assist in meeting health care needs will improve 08/26/2024915 by Michelle Lorenzo RN Outcome: Progressing 08/26/2024915 by Michelle Lorenzo RN Outcome: Progressing Clinical Goals for the Shift: stable VS, reactive NST, no worsening s/s of pre E, pain control Practice Administrator Patient Centered Goal for Treatment: healthy mom and baby Summary: 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 * Plan of Care - Jessica Morel RN - 08/25/2024 8:53 PM CST Problem: Discharge Planning Goal: Understanding discharge needs will improve Outcome: Progressing Problem: General Patient Education Goal: Knowledge of disease process, condition or treatment will be improved Outcome: Progressing Problem: Fall Risk Goal: Ability to state ways to decrease the risk of falls will improve Outcome: Progressing Goal: Will remain free from falls Outcome: Progressing Goal: Will remain free from injury from falls Outcome: Progressing Problem: Medication Regimen Goal: Knowledge of medication regimen will improve Outcome: Progressing Problem: Additional OB Conditions Goal: Will remain free from complications related to obstetric conditions Outcome: Progressing Problem: Lack of Knowledge Goal: Ability to develop a pain control plan will improve Outcome: Progressing Problem: Medication Goal: Satisfaction with pain management medication regimen will improve Outcome: Progressing Problem: Sensory Goal: Ability to identify factors that increase pain levels will improve while working to decrease the patient's pain levels Outcome: Progressing Problem: Coping Goal: Ability to cope will improve Outcome: Progressing Problem: Health Behavior Goal: Identification of resources available to assist in meeting health care needs will improve Outcome: Progressing Goals: Clinical Goals for the Shift: VSS, BP monitoring Practice Administrator Patient Centered Goal for Treatment: healthy mom and baby STRAIGHTENING MACHINE OPERATOR * Plan of Care - Dvae Juarez RN - 08/25/2024 9:44 AM CST Problem: Discharge Planning Goal: Understanding discharge needs will improve Outcome: Progressing Problem: General Patient Education Goal: Knowledge of disease process, condition or treatment will be improved Outcome: Progressing Problem: Fall Risk Goal: Ability to state ways to decrease the risk of falls will improve Outcome: Progressing Goal: Will remain free from falls Outcome: Progressing Goal: Will remain free from injury from falls Outcome: Progressing Problem: Medication Regimen Goal: Knowledge of medication regimen will improve Outcome: Progressing Problem: Additional OB Conditions Goal: Will remain free from complications related to obstetric conditions Outcome: Progressing Problem: Lack of Knowledge Goal: Ability to develop a pain control plan will improve Outcome: Progressing Problem: Medication Goal: Satisfaction with pain management medication regimen will improve Outcome: Progressing Problem: Sensory Goal: Ability to identify factors that increase pain levels will improve while working to decrease the patient's pain levels Outcome: Progressing Problem: Coping Goal: Ability to cope will improve Outcome: Progressing Problem: Health Behavior Goal: Identification of resources available to assist in meeting health care needs will improve Outcome: Progressing Goals: Clinical Goals for the Shift: vss, reactive NSTx2, pain control, BP monitoring, rest Practice Administrator Patient Centered Goal for Treatment: healthy mom and baby Summary: STRAIGHTENING MACHINE OPERATOR * Plan of Care - Arabella Esparza - 08/24/2024 8:50 PM CST Problem: Discharge Planning Goal: Understanding discharge needs will improve Outcome: Progressing Problem: General Patient Education Goal: Knowledge of disease process, condition or treatment will be improved Outcome: Progressing Problem: Fall Risk Goal: Ability to state ways to decrease the risk of falls will improve Outcome: Progressing Goal: Will remain free from falls Outcome: Progressing Goal: Will remain free from injury from falls Outcome: Progressing Problem: Medication Regimen Goal: Knowledge of medication regimen will improve Outcome: Progressing Problem: Additional OB Conditions Goal: Will remain free from complications related to obstetric conditions Outcome: Progressing Problem: Lack of Knowledge Goal: Ability to develop a pain control plan will improve Outcome: Progressing Problem: Medication Goal: Satisfaction with pain management medication regimen will improve Outcome: Progressing Problem: Sensory Goal: Ability to identify factors that increase pain levels will improve while working to decrease the patient's pain levels Outcome: Progressing Problem: Coping Goal: Ability to cope will improve Outcome: Progressing Problem: Health Behavior Goal: Identification of resources available to assist in meeting health care needs will improve Outcome: Progressing Goals: Clinical Goals for the Shift: vs wnl, rest, morning labs Practice Administrator Patient Centered Goal for Treatment: healthy mom and baby Summary: Arabella Esparza RN STRAIGHTENING MACHINE OPERATOR * Plan of Care - Dave Juarez RN - 08/24/2024 9:50 AM CST Problem: Discharge Planning Goal: Understanding discharge needs will improve Outcome: Progressing Problem: General Patient Education Goal: Knowledge of disease process, condition or treatment will be improved Outcome: Progressing Problem: Fall Risk Goal: Ability to state ways to decrease the risk of falls will improve Outcome: Progressing Goal: Will remain free from falls Outcome: Progressing Goal: Will remain free from injury from falls Outcome: Progressing Problem: Medication Regimen Goal: Knowledge of medication regimen will improve Outcome: Progressing Problem: Additional OB Conditions Goal: Will remain free from complications related to obstetric conditions Outcome: Progressing Problem: Lack of Knowledge Goal: Ability to develop a pain control plan will improve Outcome: Progressing Problem: Medication Goal: Satisfaction with pain management medication regimen will improve Outcome: Progressing Problem: Sensory Goal: Ability to identify factors that increase pain levels will improve while working to decrease the patient's pain levels Outcome: Progressing Problem: Coping Goal: Ability to cope will improve Outcome: Progressing Problem: Health Behavior Goal: Identification of resources available to assist in meeting health care needs will improve Outcome: Progressing Goals: Clinical Goals for the Shift: vss, reactive NSTx2, BP monitor, rest Fdc Patient Centered Goal for Treatment: healthy mom and baby Summary: STRAIGHTENING MACHINE OPERATOR * Plan of Care - Floyd Ahumada RN - 08/23/2024 9:45 AM CST Problem: Discharge Planning Goal: Understanding discharge needs will improve Outcome: Progressing Problem: General Patient Education Goal: Knowledge of disease process, condition or treatment will be improved Outcome: Progressing Problem: Fall Risk Goal: Ability to state ways to decrease the risk of falls will improve Outcome: Progressing Goal: Will remain free from falls Outcome: Progressing Goal: Will remain free from injury from falls Outcome: Progressing Problem: Medication Regimen Goal: Knowledge of medication regimen will improve Outcome: Progressing Problem: Additional OB Conditions Goal: Will remain free from complications related to obstetric conditions Outcome: Progressing Problem: Lack of Knowledge Goal: Ability to develop a pain control plan will improve Outcome: Progressing Problem: Medication Goal: Satisfaction with pain management medication regimen will improve Outcome: Progressing Problem: Sensory Goal: Ability to identify factors that increase pain levels will improve while working to decrease the patient's pain levels Outcome: Progressing Problem: Coping Goal: Ability to cope will improve Outcome: Progressing Problem: Health Behavior Goal: Identification of resources available to assist in meeting health care needs will improve Outcome: Progressing Goals: Clinical Goals for the Shift: stable VS; reactive NST; monitro blood pressure Practice Administrator Patient Centered Goal for Treatment: healthy mom and baby Summary: Floyd Ahumada RN STRAIGHTENING MACHINE OPERATOR * Plan of Polly Del Rio RN - 08/22/2024 9:39 PM CST Problem: Discharge Planning Goal: Understanding discharge needs will improve Outcome: Progressing Problem: General Patient Education Goal: Knowledge of disease process, condition or treatment will be improved Outcome: Progressing Problem: Fall Risk Goal: Ability to state ways to decrease the risk of falls will improve Outcome: Progressing Goal: Will remain free from falls Outcome: Progressing Goal: Will remain free from injury from falls Outcome: Progressing Problem: Medication Regimen Goal: Knowledge of medication regimen will improve Outcome: Progressing Problem: Additional OB Conditions Goal: Will remain free from complications related to obstetric conditions Outcome: Progressing Problem: Lack of Knowledge Goal: Ability to develop a pain control plan will improve Outcome: Progressing Problem: Medication Goal: Satisfaction with pain management medication regimen will improve Outcome: Progressing Problem: Sensory Goal: Ability to identify factors that increase pain levels will improve while working to decrease the patient's pain levels Outcome: Progressing Problem: Coping Goal: Ability to cope will improve Outcome: Progressing Problem: Health Behavior Goal: Identification of resources available to assist in meeting health care needs will improve Outcome: Progressing Clinical Goals for the Shift: VSS, monitor for worsening s/s of PreE, rest Practice Administrator Patient Centered Goal for Treatment: healthy mom healthy babies STRAIGHTENING MACHINE OPERATOR * Plan of Care - Floyd Ahumada RN - 08/22/2024 9:20 AM CST Problem: Discharge Planning Goal: Understanding discharge needs will improve Outcome: Progressing Problem: General Patient Education Goal: Knowledge of disease process, condition or treatment will be improved Outcome: Progressing Problem: Fall Risk Goal: Ability to state ways to decrease the risk of falls will improve Outcome: Progressing Goal: Will remain free from falls Outcome: Progressing Goal: Will remain free from injury from falls Outcome: Progressing Problem: Medication Regimen Goal: Knowledge of medication regimen will improve Outcome: Progressing Problem: Additional OB Conditions Goal: Will remain free from complications related to obstetric conditions Outcome: Progressing Problem: Lack of Knowledge Goal: Ability to develop a pain control plan will improve Outcome: Progressing Problem: Medication Goal: Satisfaction with pain management medication regimen will improve Outcome: Progressing Problem: Sensory Goal: Ability to identify factors that increase pain levels will improve while working to decrease the patient's pain levels Outcome: Progressing Problem: Coping Goal: Ability to cope will improve Outcome: Progressing Problem: Health Behavior Goal: Identification of resources available to assist in meeting health care needs will improve Outcome: Progressing Goals: Clinical Goals for the Shift: Stable VS; reactive NST Fdc Patient Centered Goal for Treatment: healthy mom and baby Summary: Floyd Ahumada RN STRAIGHTENING MACHINE OPERATOR * Plan of Rohit - Torrie Cline RN - 08/21/2024 9:34 PM CST Goals: Clinical Goals for the Shift: vss, monitor s/s of pre-E, rest Practice Administrator Patient Centered Goal for Treatment: healthy mom and babies Problem: Discharge Planning Goal: Understanding discharge needs will improve Outcome: Progressing Problem: General Patient Education Goal: Knowledge of disease process, condition or treatment will be improved Outcome: Progressing Problem: Fall Risk Goal: Ability to state ways to decrease the risk of falls will improve Outcome: Progressing Goal: Will remain free from falls Outcome: Progressing Goal: Will remain free from injury from falls Outcome: Progressing Problem: Medication Regimen Goal: Knowledge of medication regimen will improve Outcome: Progressing Problem: Additional OB Conditions Goal: Will remain free from complications related to obstetric conditions Outcome: Progressing Problem: Lack of Knowledge Goal: Ability to develop a pain control plan will improve Outcome: Progressing Problem: Medication Goal: Satisfaction with pain management medication regimen will improve Outcome: Progressing Problem: Sensory Goal: Ability to identify factors that increase pain levels will improve while working to decrease the patient's pain levels Outcome: Progressing Problem: Coping Goal: Ability to cope will improve Outcome: Progressing Problem: Health Behavior Goal: Identification of resources available to assist in meeting health care needs will improve Outcome: Progressing Summary: Torrie Cline RN STRAIGHTENING MACHINE OPERATOR * Plan of Care - Michelle Lorenzo RN - 08/21/2024 9:53 AM CST Goals: Problem: Discharge Planning Goal: Understanding discharge needs will improve Outcome: Progressing Problem: General Patient Education Goal: Knowledge of disease process, condition or treatment will be improved Outcome: Progressing Problem: Fall Risk Goal: Ability to state ways to decrease the risk of falls will improve Outcome: Progressing Goal: Will remain free from falls Outcome: Progressing Goal: Will remain free from injury from falls Outcome: Progressing Problem: Medication Regimen Goal: Knowledge of medication regimen will improve Outcome: Progressing Problem: Additional OB Conditions Goal: Will remain free from complications related to obstetric conditions Outcome: Progressing Problem: Lack of Knowledge Goal: Ability to develop a pain control plan will improve Outcome: Progressing Problem: Medication Goal: Satisfaction with pain management medication regimen will improve Outcome: Progressing Problem: Sensory Goal: Ability to identify factors that increase pain levels will improve while working to decrease the patient's pain levels Outcome: Progressing Problem: Coping Goal: Ability to cope will improve Outcome: Progressing Problem: Health Behavior Goal: Identification of resources available to assist in meeting health care needs will improve Outcome: Progressing Clinical Goals for the Shift: stable VS, reactive NST, pain control Fdc Patient Centered Goal for Treatment: healthy mom and babies Summary: STRAIGHTENING MACHINE OPERATOR * Plan of Care - Milla Cazares RN - 08/20/2024 8:40 PM CST Problem: Discharge Planning Goal: Understanding discharge needs will improve Outcome: Progressing Problem: General Patient Education Goal: Knowledge of disease process, condition or treatment will be improved Outcome: Progressing Problem: Fall Risk Goal: Ability to state ways to decrease the risk of falls will improve Outcome: Progressing Goal: Will remain free from falls Outcome: Progressing Goal: Will remain free from injury from falls Outcome: Progressing Problem: Medication Regimen Goal: Knowledge of medication regimen will improve Outcome: Progressing Problem: Additional OB Conditions Goal: Will remain free from complications related to obstetric conditions Outcome: Progressing Problem: Lack of Knowledge Goal: Ability to develop a pain control plan will improve Outcome: Progressing Problem: Medication Goal: Satisfaction with pain management medication regimen will improve Outcome: Progressing Problem: Sensory Goal: Ability to identify factors that increase pain levels will improve while working to decrease the patient's pain levels Outcome: Progressing Problem: Coping Goal: Ability to cope will improve Outcome: Progressing Problem: Health Behavior Goal: Identification of resources available to assist in meeting health care needs will improve Outcome: Progressing Goals: Clinical Goals for the Shift: VSS, monitor BP, rest Practice Administrator Patient Centered Goal for Treatment: healthy mom and babies Summary: Milla Cazares RN STRAIGHTENING MACHINE OPERATOR * Plan of Care - Michelle Lorenzo RN - 08/20/2024 9:40 AM CST Goals: Problem: Discharge Planning Goal: Understanding discharge needs will improve Outcome: Progressing Problem: General Patient Education Goal: Knowledge of disease process, condition or treatment will be improved Outcome: Progressing Problem: Fall Risk Goal: Ability to state ways to decrease the risk of falls will improve Outcome: Progressing Goal: Will remain free from falls Outcome: Progressing Goal: Will remain free from injury from falls Outcome: Progressing Problem: Medication Regimen Goal: Knowledge of medication regimen will improve Outcome: Progressing Problem: Additional OB Conditions Goal: Will remain free from complications related to obstetric conditions Outcome: Progressing Problem: Lack of Knowledge Goal: Ability to develop a pain control plan will improve Outcome: Progressing Problem: Medication Goal: Satisfaction with pain management medication regimen will improve Outcome: Progressing Problem: Sensory Goal: Ability to identify factors that increase pain levels will improve while working to decrease the patient's pain levels Outcome: Progressing Problem: Coping Goal: Ability to cope will improve Outcome: Progressing Problem: Health Behavior Goal: Identification of resources available to assist in meeting health care needs will improve Outcome: Progressing Clinical Goals for the Shift: stable VS, reactive NST, pain control Practice Administrator Patient Centered Goal for Treatment: healthy mom and babies Summary: STRAIGHTENING MACHINE OPERATOR * Plan of Care - Milla Cazares RN - 08/19/2024 8:37 PM CST Problem: Discharge Planning Goal: Understanding discharge needs will improve Outcome: Progressing Problem: General Patient Education Goal: Knowledge of disease process, condition or treatment will be improved Outcome: Progressing Problem: Fall Risk Goal: Ability to state ways to decrease the risk of falls will improve Outcome: Progressing Goal: Will remain free from falls Outcome: Progressing Goal: Will remain free from injury from falls Outcome: Progressing Problem: Medication Regimen Goal: Knowledge of medication regimen will improve Outcome: Progressing Problem: Additional OB Conditions Goal: Will remain free from complications related to obstetric conditions Outcome: Progressing Problem: Lack of Knowledge Goal: Ability to develop a pain control plan will improve Outcome: Progressing Problem: Medication Goal: Satisfaction with pain management medication regimen will improve Outcome: Progressing Problem: Sensory Goal: Ability to identify factors that increase pain levels will improve while working to decrease the patient's pain levels Outcome: Progressing Problem: Coping Goal: Ability to cope will improve Outcome: Progressing Problem: Health Behavior Goal: Identification of resources available to assist in meeting health care needs will improve Outcome: Progressing Goals: Clinical Goals for the Shift: VSS, monitor BP, rest Fdc Patient Centered Goal for Treatment: healthy mom and babies Summary: Milla Cazares RN STRAIGHTENING MACHINE OPERATOR * Plan of Care - Mima Whatley RN - 08/19/2024 7:39 AM CST Problem: Discharge Planning Goal: Understanding discharge needs will improve Outcome: Progressing Problem: General Patient Education Goal: Knowledge of disease process, condition or treatment will be improved Outcome: Progressing Problem: Fall Risk Goal: Ability to state ways to decrease the risk of falls will improve Outcome: Progressing Goal: Will remain free from falls Outcome: Progressing Goal: Will remain free from injury from falls Outcome: Progressing Problem: Medication Regimen Goal: Knowledge of medication regimen will improve Outcome: Progressing Problem: Additional OB Conditions Goal: Will remain free from complications related to obstetric conditions Outcome: Progressing Problem: Lack of Knowledge Goal: Ability to develop a pain control plan will improve Outcome: Progressing Problem: Medication Goal: Satisfaction with pain management medication regimen will improve Outcome: Progressing Problem: Sensory Goal: Ability to identify factors that increase pain levels will improve while working to decrease the patient's pain levels Outcome: Progressing Problem: Coping Goal: Ability to cope will improve Outcome: Progressing Problem: Health Behavior Goal: Identification of resources available to assist in meeting health care needs will improve Outcome: Progressing Goals: Clinical Goals for the Shift: VSS, rest, monitor pre-E s/s Fdc Patient Centered Goal for Treatment: healthy mom, healthy babies Summary: STRAIGHTENING MACHINE OPERATOR * Plan of Care - Kim Eugene RN - 08/18/2024 9:36 PM CST Goals: Clinical Goals for the Shift: monitor vss and promote rest Practice Administrator Patient Centered Goal for Treatment: healthy mom and babies Summary: Problem: Discharge Planning Goal: Understanding discharge needs will improve Outcome: Progressing Problem: General Patient Education Goal: Knowledge of disease process, condition or treatment will be improved Outcome: Progressing Problem: Fall Risk Goal: Ability to state ways to decrease the risk of falls will improve Outcome: Progressing Goal: Will remain free from falls Outcome: Progressing Goal: Will remain free from injury from falls Outcome: Progressing Problem: Medication Regimen Goal: Knowledge of medication regimen will improve Outcome: Progressing Problem: Additional OB Conditions Goal: Will remain free from complications related to obstetric conditions Outcome: Progressing Problem: Lack of Knowledge Goal: Ability to develop a pain control plan will improve Outcome: Progressing Problem: Medication Goal: Satisfaction with pain management medication regimen will improve Outcome: Progressing Problem: Sensory Goal: Ability to identify factors that increase pain levels will improve while working to decrease the patient's pain levels Outcome: Progressing Problem: Coping Goal: Ability to cope will improve Outcome: Progressing Problem: Health Behavior Goal: Identification of resources available to assist in meeting health care needs will improve Outcome: 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 * Plan of Care - Maria Luisa Sawyer RN - 08/18/2024 10:32 AM WIRE STRAIGHTENING MACHINE OPERATOR Problem: Discharge Planning Goal: Understanding discharge needs will improve Outcome: Progressing Problem: General Patient Education Goal: Knowledge of disease process, condition or treatment will be improved Outcome: Progressing Problem: Additional OB Conditions Goal: Will remain free from complications related to obstetric conditions Outcome: Progressing Problem: Discharge Planning Goal: Understanding discharge needs will improve Outcome: Progressing Problem: General Patient Education Goal: Knowledge of disease process, condition or treatment will be improved Outcome: Progressing Problem: Additional OB Conditions Goal: Will remain free from complications related to obstetric conditions Outcome: Progressing Goals: Clinical Goals for the Shift: VSS, monitor s/s of preE, rest Practice Administrator Patient Centered Goal for Treatment: healthy mom and babies Summary: STRAIGHTENING MACHINE OPERATOR * Plan of Libby Orona RN - 08/17/2024 10:12 PM CST Problem: Discharge Planning Goal: Understanding discharge needs will improve Outcome: Progressing Problem: General Patient Education Goal: Knowledge of disease process, condition or treatment will be improved Outcome: Progressing Problem: Fall Risk Goal: Ability to state ways to decrease the risk of falls will improve Outcome: Progressing Goal: Will remain free from falls Outcome: Progressing Goal: Will remain free from injury from falls Outcome: Progressing Problem: Medication Regimen Goal: Knowledge of medication regimen will improve Outcome: Progressing Problem: Additional OB Conditions Goal: Will remain free from complications related to obstetric conditions Outcome: Progressing Problem: Lack of Knowledge Goal: Ability to develop a pain control plan will improve Outcome: Progressing Problem: Medication Goal: Satisfaction with pain management medication regimen will improve Outcome: Progressing Problem: Sensory Goal: Ability to identify factors that increase pain levels will improve while working to decrease the patient's pain levels Outcome: Progressing Problem: Coping Goal: Ability to cope will improve Outcome: Progressing Problem: Health Behavior Goal: Identification of resources available to assist in meeting health care needs will improve Outcome: Progressing Goals: Clinical Goals for the Shift: VSS, monitor s/s of preE, rest Practice Administrator Patient Centered Goal for Treatment: healthy mom and babies Summary: Libby Hicks RN STRAIGHTENING MACHINE OPERATOR * Plan of Care - Maureen Keith RN - 08/17/2024 9:55 AM WIRE STRAIGHTENING MACHINE OPERATOR Problem: Discharge Planning Goal: Understanding discharge needs will improve Outcome: Progressing Problem: General Patient Education Goal: Knowledge of disease process, condition or treatment will be improved Outcome: Progressing Problem: Fall Risk Goal: Ability to state ways to decrease the risk of falls will improve Outcome: Progressing Goal: Will remain free from falls Outcome: Progressing Goal: Will remain free from injury from falls Outcome: Progressing Problem: Medication Regimen Goal: Knowledge of medication regimen will improve Outcome: Progressing Problem: Additional OB Conditions Goal: Will remain free from complications related to obstetric conditions Outcome: Progressing Problem: Lack of Knowledge Goal: Ability to develop a pain control plan will improve Outcome: Progressing Problem: Medication Goal: Satisfaction with pain management medication regimen will improve Outcome: Progressing Problem: Sensory Goal: Ability to identify factors that increase pain levels will improve while working to decrease the patient's pain levels Outcome: Progressing Problem: Coping Goal: Ability to cope will improve Outcome: Progressing Problem: Health Behavior Goal: Identification of resources available to assist in meeting health care needs will improve Outcome: Progressing Goals: Clinical Goals for the Shift: VSS, headache relief, reactive NST Practice Administrator Patient Centered Goal for Treatment: healthy mom and babies Summary: Maureen Keith RN STRAIGHTENING MACHINE OPERATOR * Plan of Rohit - Torrie Cline RN - 08/16/2024 10:26 PM CST Goals: Clinical Goals for the Shift: vss, pain relied, monitor for s.s of pre-E, rest Practice Administrator Patient Centered Goal for Treatment: healthy mom and babies Problem: Discharge Planning Goal: Understanding discharge needs will improve Outcome: Progressing Problem: General Patient Education Goal: Knowledge of disease process, condition or treatment will be improved Outcome: Progressing Problem: Fall Risk Goal: Ability to state ways to decrease the risk of falls will improve Outcome: Progressing Goal: Will remain free from falls Outcome: Progressing Goal: Will remain free from injury from falls Outcome: Progressing Problem: Medication Regimen Goal: Knowledge of medication regimen will improve Outcome: Progressing Problem: Additional OB Conditions Goal: Will remain free from complications related to obstetric conditions Outcome: Progressing Problem: Lack of Knowledge Goal: Ability to develop a pain control plan will improve Outcome: Progressing Problem: Medication Goal: Satisfaction with pain management medication regimen will improve Outcome: Progressing Problem: Sensory Goal: Ability to identify factors that increase pain levels will improve while working to decrease the patient's pain levels Outcome: Progressing Problem: Coping Goal: Ability to cope will improve Outcome: Progressing Problem: Health Behavior Goal: Identification of resources available to assist in meeting health care needs will improve Outcome: Progressing Summary: Torrie Cline RN STRAIGHTENING MACHINE OPERATOR * Plan of Care - Maureen Keith RN - 08/16/2024 8:46 AM WIRE STRAIGHTENING MACHINE OPERATOR Problem: Discharge Planning Goal: Understanding discharge needs will improve Outcome: Progressing Problem: General Patient Education Goal: Knowledge of disease process, condition or treatment will be improved Outcome: Progressing Problem: Fall Risk Goal: Ability to state ways to decrease the risk of falls will improve Outcome: Progressing Goal: Will remain free from falls Outcome: Progressing Goal: Will remain free from injury from falls Outcome: Progressing Problem: Medication Regimen Goal: Knowledge of medication regimen will improve Outcome: Progressing Problem: Additional OB Conditions Goal: Will remain free from complications related to obstetric conditions Outcome: Progressing Problem: Lack of Knowledge Goal: Ability to develop a pain control plan will improve Outcome: Progressing Problem: Medication Goal: Satisfaction with pain management medication regimen will improve Outcome: Progressing Problem: Sensory Goal: Ability to identify factors that increase pain levels will improve while working to decrease the patient's pain levels Outcome: Progressing Problem: Coping Goal: Ability to cope will improve Outcome: Progressing Problem: Health Behavior Goal: Identification of resources available to assist in meeting health care needs will improve Outcome: Progressing Goals: Clinical Goals for the Shift: VSS, monitor s/s of preE, reactive NST Fdc Patient Centered Goal for Treatment: healthy mom and babies Summary: Maureen Keith RN STRAIGHTENING MACHINE OPERATOR * Plan of Care - Torrie Cline RN - 08/15/2024 9:28 PM CST Goals: Clinical Goals for the Shift: vss, monitor for s/s of pre-E, rest Fdc Patient Centered Goal for Treatment: healthy mom and babies Problem: Discharge Planning Goal: Understanding discharge needs will improve Outcome: Progressing Problem: General Patient Education Goal: Knowledge of disease process, condition or treatment will be improved Outcome: Progressing Problem: Fall Risk Goal: Ability to state ways to decrease the risk of falls will improve Outcome: Progressing Goal: Will remain free from falls Outcome: Progressing Goal: Will remain free from injury from falls Outcome: Progressing Problem: Medication Regimen Goal: Knowledge of medication regimen will improve Outcome: Progressing Problem: Additional OB Conditions Goal: Will remain free from complications related to obstetric conditions Outcome: Progressing Problem: Lack of Knowledge Goal: Ability to develop a pain control plan will improve Outcome: Progressing Problem: Medication Goal: Satisfaction with pain management medication regimen will improve Outcome: Progressing Problem: Sensory Goal: Ability to identify factors that increase pain levels will improve while working to decrease the patient's pain levels Outcome: Progressing Problem: Coping Goal: Ability to cope will improve Outcome: Progressing Problem: Health Behavior Goal: Identification of resources available to assist in meeting health care needs will improve Outcome: Progressing Summary: Torrie Cline RN STRAIGHTENING MACHINE OPERATOR * Plan of Rohit - Blessing Barone RN - 08/15/2024 10:15 AM CST Problem: Discharge Planning Goal: Understanding discharge needs will improve Outcome: Progressing Problem: General Patient Education Goal: Knowledge of disease process, condition or treatment will be improved Outcome: Progressing Problem: Additional OB Conditions Goal: Will remain free from complications related to obstetric conditions Outcome: Progressing Problem: Fall Risk Goal: Ability to state ways to decrease the risk of falls will improve Outcome: Progressing Goal: Will remain free from falls Outcome: Progressing Goal: Will remain free from injury from falls Outcome: Progressing Problem: Medication Regimen Goal: Knowledge of medication regimen will improve Outcome: Progressing Problem: Lack of Knowledge Goal: Ability to develop a pain control plan will improve Outcome: Progressing Problem: Medication Goal: Satisfaction with pain management medication regimen will improve Outcome: Progressing Problem: Sensory Goal: Ability to identify factors that increase pain levels will improve while working to decrease the patient's pain levels Outcome: Progressing Problem: Coping Goal: Ability to cope will improve Outcome: Progressing Problem: Health Behavior Goal: Identification of resources available to assist in meeting health care needs will improve Outcome: Progressing Goals: Clinical Goals for the Shift: VS WNL; monitor for s/s of PreE; Reactive NST; promote rest Fdc Patient Centered Goal for Treatment: healthy mom and healthy babies Blessing Barone RN STRAIGHTENING MACHINE OPERATOR * Plan of Rohit - Nancy Garcia RN - 08/14/2024 7:16 PM CST Problem: Discharge Planning Goal: Understanding discharge needs will improve Outcome: Progressing Problem: General Patient Education Goal: Knowledge of disease process, condition or treatment will be improved Outcome: Progressing Problem: Fall Risk Goal: Ability to state ways to decrease the risk of falls will improve Outcome: Progressing Goal: Will remain free from falls Outcome: Progressing Goal: Will remain free from injury from falls Outcome: Progressing Problem: Medication Regimen Goal: Knowledge of medication regimen will improve Outcome: Progressing Problem: Additional OB Conditions Goal: Will remain free from complications related to obstetric conditions Outcome: Progressing Problem: Lack of Knowledge Goal: Ability to develop a pain control plan will improve Outcome: Progressing Problem: Medication Goal: Satisfaction with pain management medication regimen will improve Outcome: Progressing Problem: Sensory Goal: Ability to identify factors that increase pain levels will improve while working to decrease the patient's pain levels Outcome: Progressing Problem: Coping Goal: Ability to cope will improve Outcome: Progressing Problem: Health Behavior Goal: Identification of resources available to assist in meeting health care needs will improve Outcome: Progressing Goals: Clinical Goals for the Shift: VSS Practice Administrator Patient Centered Goal for Treatment: healthy mom and babies Summary: Nancy Garcia RN STRAIGHTENING MACHINE OPERATOR * Plan of Care - Hilda Brunner RN - 08/14/2024 10:34 AM CST Goals: Clinical Goals for the Shift: VSS Fdc Patient Centered Goal for Treatment: healthy mom and babies Summary: Problem: Discharge Planning Goal: Understanding discharge needs will improve Outcome: Progressing Problem: General Patient Education Goal: Knowledge of disease process, condition or treatment will be improved Outcome: Progressing Problem: Fall Risk Goal: Ability to state ways to decrease the risk of falls will improve Outcome: Progressing Goal: Will remain free from falls Outcome: Progressing Goal: Will remain free from injury from falls Outcome: Progressing Problem: Medication Regimen Goal: Knowledge of medication regimen will improve Outcome: Progressing Problem: Additional OB Conditions Goal: Will remain free from complications related to obstetric conditions Outcome: Progressing Problem: Lack of Knowledge Goal: Ability to develop a pain control plan will improve Outcome: Progressing Problem: Medication Goal: Satisfaction with pain management medication regimen will improve Outcome: Progressing Problem: Sensory Goal: Ability to identify factors that increase pain levels will improve while working to decrease the patient's pain levels Outcome: Progressing Problem: Coping Goal: Ability to cope will improve Outcome: Progressing Problem: Health Behavior Goal: Identification of resources available to assist in meeting health care needs will improve Outcome: 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 * Plan of Care - Torrie Cline RN - 08/13/2024 8:59 PM CST Goals: Clinical Goals for the Shift: vss, pain control, rest Practice Administrator Patient Centered Goal for Treatment: healthy mom and babies Problem: Discharge Planning Goal: Understanding discharge needs will improve Outcome: Progressing Problem: General Patient Education Goal: Knowledge of disease process, condition or treatment will be improved Outcome: Progressing Problem: Fall Risk Goal: Ability to state ways to decrease the risk of falls will improve Outcome: Progressing Goal: Will remain free from falls Outcome: Progressing Goal: Will remain free from injury from falls Outcome: Progressing Problem: Medication Regimen Goal: Knowledge of medication regimen will improve Outcome: Progressing Problem: Additional OB Conditions Goal: Will remain free from complications related to obstetric conditions Outcome: Progressing Problem: Lack of Knowledge Goal: Ability to develop a pain control plan will improve Outcome: Progressing Problem: Medication Goal: Satisfaction with pain management medication regimen will improve Outcome: Progressing Problem: Sensory Goal: Ability to identify factors that increase pain levels will improve while working to decrease the patient's pain levels Outcome: Progressing Problem: Coping Goal: Ability to cope will improve Outcome: Progressing Problem: Health Behavior Goal: Identification of resources available to assist in meeting health care needs will improve Outcome: Progressing Summary: Torrie Cline RN STRAIGHTENING MACHINE OPERATOR * Plan of Rohit - Livia Meléndez RN - 08/13/2024 9:14 AM CST Problem: Discharge Planning Goal: Understanding discharge needs will improve Outcome: Progressing Problem: General Patient Education Goal: Knowledge of disease process, condition or treatment will be improved Outcome: Progressing Problem: Fall Risk Goal: Ability to state ways to decrease the risk of falls will improve Outcome: Progressing Goal: Will remain free from falls Outcome: Progressing Goal: Will remain free from injury from falls Outcome: Progressing Problem: Medication Regimen Goal: Knowledge of medication regimen will improve Outcome: Progressing Problem: Additional OB Conditions Goal: Will remain free from complications related to obstetric conditions Outcome: Progressing Problem: Lack of Knowledge Goal: Ability to develop a pain control plan will improve Outcome: Progressing Problem: Medication Goal: Satisfaction with pain management medication regimen will improve Outcome: Progressing Problem: Sensory Goal: Ability to identify factors that increase pain levels will improve while working to decrease the patient's pain levels Outcome: Progressing Problem: Coping Goal: Ability to cope will improve Outcome: Progressing Problem: Health Behavior Goal: Identification of resources available to assist in meeting health care needs will improve Outcome: Progressing Goals: Clinical Goals for the Shift: BP management, VSS, pain management, learn about next steps in care Fdc Patient Centered Goal for Treatment: healthy mom and babies Summary: Livia Meléndez RN STRAIGHTENING MACHINE OPERATOR * Plan of Rohit - Nancy Garcia RN - 08/12/2024 7:11 PM CST Problem: Discharge Planning Goal: Understanding discharge needs will improve Outcome: Progressing Problem: General Patient Education Goal: Knowledge of disease process, condition or treatment will be improved Outcome: Progressing Problem: Fall Risk Goal: Ability to state ways to decrease the risk of falls will improve Outcome: Progressing Goal: Will remain free from falls Outcome: Progressing Goal: Will remain free from injury from falls Outcome: Progressing Problem: Medication Regimen Goal: Knowledge of medication regimen will improve Outcome: Progressing Problem: Additional OB Conditions Goal: Will remain free from complications related to obstetric conditions Outcome: Progressing Problem: Lack of Knowledge Goal: Ability to develop a pain control plan will improve Outcome: Progressing Problem: Medication Goal: Satisfaction with pain management medication regimen will improve Outcome: Progressing Problem: Sensory Goal: Ability to identify factors that increase pain levels will improve while working to decrease the patient's pain levels Outcome: Progressing Problem: Coping Goal: Ability to cope will improve Outcome: Progressing Problem: Health Behavior Goal: Identification of resources available to assist in meeting health care needs will improve Outcome: Progressing Goals: Clinical Goals for the Shift: VSS; Pain relief; Monitor S/S of preE; Rest Practice Administrator Patient Centered Goal for Treatment: Healthy mom and healthy babies Summary: Nancy Garcia RN STRAIGHTENING MACHINE OPERATOR * Plan of Care - Heather Abel RN - 08/12/2024 7:23 AM CST Goals: Clinical Goals for the Shift: VSS; Pain relief; Monitor S/S of preE; Rest Practice Administrator Patient Centered Goal for Treatment: Healthy mom and healthy babies Summary: Problem: Discharge Planning Goal: Understanding discharge needs will improve Outcome: Progressing Problem: General Patient Education Goal: Knowledge of disease process, condition or treatment will be improved Outcome: Progressing Problem: Fall Risk Goal: Ability to state ways to decrease the risk of falls will improve Outcome: Progressing Goal: Will remain free from falls Outcome: Progressing Goal: Will remain free from injury from falls Outcome: Progressing Problem: Medication Regimen Goal: Knowledge of medication regimen will improve Outcome: Progressing Problem: Additional OB Conditions Goal: Will remain free from complications related to obstetric conditions Outcome: Progressing Problem: Lack of Knowledge Goal: Ability to develop a pain control plan will improve Outcome: Progressing Problem: Medication Goal: Satisfaction with pain management medication regimen will improve Outcome: Progressing Problem: Sensory Goal: Ability to identify factors that increase pain levels will improve while working to decrease the patient's pain levels Outcome: Progressing Problem: Coping Goal: Ability to cope will improve Outcome: Progressing Problem: Health Behavior Goal: Identification of resources available to assist in meeting health care needs will improve Outcome: 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 * Plan of Torrie Sawant RN - 08/11/2024 7:57 PM CST Goals: Clinical Goals for the Shift: vss, pain relief, monitor s/s of pre-E, rest Fdc Patient Centered Goal for Treatment: healthy mom and baby Problem: Discharge Planning Goal: Understanding discharge needs will improve Outcome: Progressing Problem: General Patient Education Goal: Knowledge of disease process, condition or treatment will be improved Outcome: Progressing Problem: Fall Risk Goal: Ability to state ways to decrease the risk of falls will improve Outcome: Progressing Goal: Will remain free from falls Outcome: Progressing Goal: Will remain free from injury from falls Outcome: Progressing Problem: Medication Regimen Goal: Knowledge of medication regimen will improve Outcome: Progressing Problem: Additional OB Conditions Goal: Will remain free from complications related to obstetric conditions Outcome: Progressing Problem: Lack of Knowledge Goal: Ability to develop a pain control plan will improve Outcome: Progressing Problem: Medication Goal: Satisfaction with pain management medication regimen will improve Outcome: Progressing Problem: Sensory Goal: Ability to identify factors that increase pain levels will improve while working to decrease the patient's pain levels Outcome: Progressing Problem: Coping Goal: Ability to cope will improve Outcome: Progressing Problem: Health Behavior Goal: Identification of resources available to assist in meeting health care needs will improve Outcome: Progressing Summary: Torrie Cline RN STRAIGHTENING MACHINE OPERATOR * Plan of Carol Raya RN - 08/11/2024 9:46 AM CST Goals: Clinical Goals for the Shift: Monitor vitals and s/sx of PreE Fdc Patient Centered Goal for Treatment: healthy mom and baby Problem: Discharge Planning Goal: Understanding discharge needs will improve Outcome: Progressing Problem: General Patient Education Goal: Knowledge of disease process, condition or treatment will be improved Outcome: Progressing Problem: Fall Risk Goal: Ability to state ways to decrease the risk of falls will improve Outcome: Progressing Goal: Will remain free from falls Outcome: Progressing Goal: Will remain free from injury from falls Outcome: Progressing Problem: Medication Regimen Goal: Knowledge of medication regimen will improve Outcome: Progressing Problem: Additional OB Conditions Goal: Will remain free from complications related to obstetric conditions Outcome: Progressing Problem: Lack of Knowledge Goal: Ability to develop a pain control plan will improve Outcome: Progressing Problem: Medication Goal: Satisfaction with pain management medication regimen will improve Outcome: Progressing Problem: Sensory Goal: Ability to identify factors that increase pain levels will improve while working to decrease the patient's pain levels Outcome: Progressing Problem: Coping Goal: Ability to cope will improve Outcome: Progressing Problem: Health Behavior Goal: Identification of resources available to assist in meeting health care needs will improve Outcome: Progressing Summary: Pt progressing towards goals. STRAIGHTENING MACHINE OPERATOR * Plan of Care - Jessica Morel RN - 08/10/2024 7:44 PM CST Problem: Discharge Planning Goal: Understanding discharge needs will improve Outcome: Progressing Problem: General Patient Education Goal: Knowledge of disease process, condition or treatment will be improved Outcome: Progressing Problem: Fall Risk Goal: Ability to state ways to decrease the risk of falls will improve Outcome: Progressing Goal: Will remain free from falls Outcome: Progressing Goal: Will remain free from injury from falls Outcome: Progressing Problem: Medication Regimen Goal: Knowledge of medication regimen will improve Outcome: Progressing Problem: Additional OB Conditions Goal: Will remain free from complications related to obstetric conditions Outcome: Progressing Problem: Lack of Knowledge Goal: Ability to develop a pain control plan will improve Outcome: Progressing Problem: Medication Goal: Satisfaction with pain management medication regimen will improve Outcome: Progressing Problem: Sensory Goal: Ability to identify factors that increase pain levels will improve while working to decrease the patient's pain levels Outcome: Progressing Problem: Coping Goal: Ability to cope will improve Outcome: Progressing Problem: Health Behavior Goal: Identification of resources available to assist in meeting health care needs will improve Outcome: Progressing Goals: Clinical Goals for the Shift: VSS, monitor s/sx of PreE Fdc Patient Centered Goal for Treatment: healthy mom and baby STRAIGHTENING MACHINE OPERATOR * Note - Wendy Armstrong RN - 08/10/2024 5:02 PM CST RN called and left message that pt had some questions and would like to see LC. Counseled with mother and she denied any specific questions. Pt is currently 28.2 weeks with twins. Pt states the plan is to get to 34 weeks and preparing for NICU admission. Education provided regarding pre term behavior and the importance of early hand expression/pumping within 6 hours of delivery for supply adequacy. Encourage 8-12 times per day for 15-20 minutes including hand expression. Mother states she has already ordered a hands free wearable [employer] pump which has not arrived yet. Informedof NICU loaner pump option and discussed flange sizing for comfort. Support and encouragement provided regarding choice to provide EBM for twins. STRAIGHTENING MACHINE OPERATOR * Plan of Care - Hilda Brunner RN - 08/10/2024 1:33 PM CST Goals: Clinical Goals for the Shift: VSS, monitor s/sx of preE Practice Administrator Patient Centered Goal for Treatment: healthy mom and baby Summary: Problem: Discharge Planning Goal: Understanding discharge needs will improve Outcome: Progressing Problem: General Patient Education Goal: Knowledge of disease process, condition or treatment will be improved Outcome: Progressing Problem: Fall Risk Goal: Ability to state ways to decrease the risk of falls will improve Outcome: Progressing Goal: Will remain free from falls Outcome: Progressing Goal: Will remain free from injury from falls Outcome: Progressing Problem: Medication Regimen Goal: Knowledge of medication regimen will improve Outcome: Progressing Problem: Additional OB Conditions Goal: Will remain free from complications related to obstetric conditions Outcome: Progressing Problem: Lack of Knowledge Goal: Ability to develop a pain control plan will improve Outcome: Progressing Problem: Medication Goal: Satisfaction with pain management medication regimen will improve Outcome: Progressing Problem: Sensory Goal: Ability to identify factors that increase pain levels will improve while working to decrease the patient's pain levels Outcome: Progressing Problem: Coping Goal: Ability to cope will improve Outcome: Progressing Problem: Health Behavior Goal: Identification of resources available to assist in meeting health care needs will improve Outcome: 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 * Plan of Care - Jessica Morel RN - 08/09/2024 9:17 PM CST Problem: Discharge Planning Goal: Understanding discharge needs will improve Outcome: Progressing Problem: General Patient Education Goal: Knowledge of disease process, condition or treatment will be improved Outcome: Progressing Problem: Fall Risk Goal: Ability to state ways to decrease the risk of falls will improve Outcome: Progressing Goal: Will remain free from falls Outcome: Progressing Goal: Will remain free from injury from falls Outcome: Progressing Problem: Medication Regimen Goal: Knowledge of medication regimen will improve Outcome: Progressing Problem: Additional OB Conditions Goal: Will remain free from complications related to obstetric conditions Outcome: Progressing Problem: Lack of Knowledge Goal: Ability to develop a pain control plan will improve Outcome: Progressing Problem: Medication Goal: Satisfaction with pain management medication regimen will improve Outcome: Progressing Problem: Sensory Goal: Ability to identify factors that increase pain levels will improve while working to decrease the patient's pain levels Outcome: Progressing Problem: Coping Goal: Ability to cope will improve Outcome: Progressing Problem: Health Behavior Goal: Identification of resources available to assist in meeting health care needs will improve Outcome: Progressing Goals: Clinical Goals for the Shift: VSS, monitor s/sx of preE Practice Administrator Patient Centered Goal for Treatment: healthy mom and baby STRAIGHTENING MACHINE OPERATOR * Plan of Rohit - Floyd Ahumada RN - 08/09/2024 9:37 AM CST Problem: Discharge Planning Goal: Understanding discharge needs will improve Outcome: Progressing Problem: General Patient Education Goal: Knowledge of disease process, condition or treatment will be improved Outcome: Progressing Problem: Fall Risk Goal: Ability to state ways to decrease the risk of falls will improve Outcome: Progressing Goal: Will remain free from falls Outcome: Progressing Goal: Will remain free from injury from falls Outcome: Progressing Problem: Medication Regimen Goal: Knowledge of medication regimen will improve Outcome: Progressing Problem: Additional OB Conditions Goal: Will remain free from complications related to obstetric conditions Outcome: Progressing Problem: Lack of Knowledge Goal: Ability to develop a pain control plan will improve Outcome: Progressing Problem: Medication Goal: Satisfaction with pain management medication regimen will improve Outcome: Progressing Problem: Sensory Goal: Ability to identify factors that increase pain levels will improve while working to decrease the patient's pain levels Outcome: Progressing Problem: Coping Goal: Ability to cope will improve Outcome: Progressing Problem: Health Behavior Goal: Identification of resources available to assist in meeting health care needs will improve Outcome: Progressing Goals: Clinical Goals for the Shift: Stable VS; reactive NST Practice Administrator Patient Centered Goal for Treatment: healthy mom and baby Summary: Floyd Ahumada RN STRAIGHTENING MACHINE OPERATOR * Plan of Care - Jessica Morel RN - 08/08/2024 9:03 PM CST Problem: Discharge Planning Goal: Understanding discharge needs will improve Outcome: Progressing Problem: General Patient Education Goal: Knowledge of disease process, condition or treatment will be improved Outcome: Progressing Problem: Fall Risk Goal: Ability to state ways to decrease the risk of falls will improve Outcome: Progressing Goal: Will remain free from falls Outcome: Progressing Goal: Will remain free from injury from falls Outcome: Progressing Problem: Medication Regimen Goal: Knowledge of medication regimen will improve Outcome: Progressing Problem: Additional OB Conditions Goal: Will remain free from complications related to obstetric conditions Outcome: Progressing Problem: Lack of Knowledge Goal: Ability to develop a pain control plan will improve Outcome: Progressing Problem: Medication Goal: Satisfaction with pain management medication regimen will improve Outcome: Progressing Problem: Sensory Goal: Ability to identify factors that increase pain levels will improve while working to decrease the patient's pain levels Outcome: Progressing Problem: Coping Goal: Ability to cope will improve Outcome: Progressing Problem: Health Behavior Goal: Identification of resources available to assist in meeting health care needs will improve Outcome: Progressing Goals: Clinical Goals for the Shift: VSS, monitor s/sx of PreE Fdc Patient Centered Goal for Treatment: healthy mom and baby STRAIGHTENING MACHINE 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 * Plan of Care - Floyd Ahumada RN - 08/08/2024 9:23 AM CST Problem: Discharge Planning Goal: Understanding discharge needs will improve Outcome: Progressing Problem: General Patient Education Goal: Knowledge of disease process, condition or treatment will be improved Outcome: Progressing Problem: Fall Risk Goal: Ability to state ways to decrease the risk of falls will improve Outcome: Progressing Goal: Will remain free from falls Outcome: Progressing Goal: Will remain free from injury from falls Outcome: Progressing Problem: Medication Regimen Goal: Knowledge of medication regimen will improve Outcome: Progressing Problem: Additional OB Conditions Goal: Will remain free from complications related to obstetric conditions Outcome: Progressing Problem: Lack of Knowledge Goal: Ability to develop a pain control plan will improve Outcome: Progressing Problem: Medication Goal: Satisfaction with pain management medication regimen will improve Outcome: Progressing Problem: Sensory Goal: Ability to identify factors that increase pain levels will improve while working to decrease the patient's pain levels Outcome: Progressing Problem: Coping Goal: Ability to cope will improve Outcome: Progressing Problem: Health Behavior Goal: Identification of resources available to assist in meeting health care needs will improve Outcome: Progressing Goals: Clinical Goals for the Shift: Stable VS; reactive NST Practice Administrator Patient Centered Goal for Treatment: healthy mom and baby Summary: Floyd Ahumada RN STRAIGHTENING MACHINE OPERATOR * Plan of Care - Nick Solomon RN - 08/07/2024 7:36 PM CST Problem: Discharge Planning Goal: Understanding discharge needs will improve Outcome: Progressing Problem: General Patient Education Goal: Knowledge of disease process, condition or treatment will be improved Outcome: Progressing Problem: Fall Risk Goal: Ability to state ways to decrease the risk of falls will improve Outcome: Progressing Goal: Will remain free from falls Outcome: Progressing Goal: Will remain free from injury from falls Outcome: Progressing Problem: Medication Regimen Goal: Knowledge of medication regimen will improve Outcome: Progressing Problem: Additional OB Conditions Goal: Will remain free from complications related to obstetric conditions Outcome: Progressing Problem: Lack of Knowledge Goal: Ability to develop a pain control plan will improve Outcome: Progressing Problem: Medication Goal: Satisfaction with pain management medication regimen will improve Outcome: Progressing Problem: Sensory Goal: Ability to identify factors that increase pain levels will improve while working to decrease the patient's pain levels Outcome: Progressing Problem: Coping Goal: Ability to cope will improve Outcome: Progressing Problem: Health Behavior Goal: Identification of resources available to assist in meeting health care needs will improve Outcome: Progressing Goals: Clinical Goals for the Shift: stable VS, monitor s/s pre-e, pain control, rest Fdc Patient Centered Goal for Treatment: healthy mom and healthy baby Summary: Nick Solomon RN STRAIGHTENING MACHINE OPERATOR * Plan of Care - Michelle Lorenzo RN - 08/07/2024 9:24 AM CST Goals: Problem: Discharge Planning Goal: Understanding discharge needs will improve Outcome: Progressing Problem: General Patient Education Goal: Knowledge of disease process, condition or treatment will be improved Outcome: Progressing Problem: Fall Risk Goal: Ability to state ways to decrease the risk of falls will improve Outcome: Progressing Goal: Will remain free from falls Outcome: Progressing Goal: Will remain free from injury from falls Outcome: Progressing Problem: Medication Regimen Goal: Knowledge of medication regimen will improve Outcome: Progressing Problem: Additional OB Conditions Goal: Will remain free from complications related to obstetric conditions Outcome: Progressing Problem: Lack of Knowledge Goal: Ability to develop a pain control plan will improve Outcome: Progressing Problem: Medication Goal: Satisfaction with pain management medication regimen will improve Outcome: Progressing Problem: Sensory Goal: Ability to identify factors that increase pain levels will improve while working to decrease the patient's pain levels Outcome: Progressing Problem: Coping Goal: Ability to cope will improve Outcome: Progressing Problem: Health Behavior Goal: Identification of resources available to assist in meeting health care needs will improve Outcome: Progressing Clinical Goals for the Shift: stable VS, reactive NST and no s/s of worsening pre E Practice Administrator Patient Centered Goal for Treatment: healthy mom and healthy baby Summary: STRAIGHTENING MACHINE OPERATOR * Plan of Care - Blessing Barone RN - 08/06/2024 8:33 PM CDT Problem: Discharge Planning Goal: Understanding discharge needs will improve Outcome: Progressing Problem: General Patient Education Goal: Knowledge of disease process, condition or treatment will be improved Outcome: Progressing Problem: Additional OB Conditions Goal: Will remain free from complications related to obstetric conditions Outcome: Progressing Problem: Fall Risk Goal: Ability to state ways to decrease the risk of falls will improve Outcome: Progressing Goal: Will remain free from falls Outcome: Progressing Goal: Will remain free from injury from falls Outcome: Progressing Problem: Medication Regimen Goal: Knowledge of medication regimen will improve Outcome: Progressing Problem: Lack of Knowledge Goal: Ability to develop a pain control plan will improve Outcome: Progressing Problem: Medication Goal: Satisfaction with pain management medication regimen will improve Outcome: Progressing Problem: Sensory Goal: Ability to identify factors that increase pain levels will improve while working to decrease the patient's pain levels Outcome: Progressing Problem: Coping Goal: Ability to cope will improve Outcome: Progressing Problem: Health Behavior Goal: Identification of resources available to assist in meeting health care needs will improve Outcome: Progressing Goals: Clinical Goals for the Shift: VS WNL; labs; promote rest Practice Administrator Patient Centered Goal for Treatment: healthy mom and healthy baby Blessing Barone RN * Plan of Rohit - Michelle Lorenzo RN - 08/06/2024 9:06 AM CDT Goals: Problem: Discharge Planning Goal: Understanding discharge needs will improve Outcome: Progressing Problem: General Patient Education Goal: Knowledge of disease process, condition or treatment will be improved Outcome: Progressing Problem: Fall Risk Goal: Ability to state ways to decrease the risk of falls will improve Outcome: Progressing Goal: Will remain free from falls Outcome: Progressing Goal: Will remain free from injury from falls Outcome: Progressing Problem: Medication Regimen Goal: Knowledge of medication regimen will improve Outcome: Progressing Problem: Additional OB Conditions Goal: Will remain free from complications related to obstetric conditions Outcome: Progressing Problem: Lack of Knowledge Goal: Ability to develop a pain control plan will improve Outcome: Progressing Problem: Medication Goal: Satisfaction with pain management medication regimen will improve Outcome: Progressing Problem: Sensory Goal: Ability to identify factors that increase pain levels will improve while working to decrease the patient's pain levels Outcome: Progressing Problem: Coping Goal: Ability to cope will improve Outcome: Progressing Problem: Health Behavior Goal: Identification of resources available to assist in meeting health care needs will improve Outcome: Progressing Clinical Goals for the Shift: stable VS, pain control, reactive NST, and no worsening s/s of pre Practice Administrator Patient Centered Goal for Treatment: healthy mom and baby Summary: * Plan of Care - Selena Last RN - 08/06/2024 3:14 AM CDT Problem: Discharge Planning Goal: Understanding discharge needs will improve Outcome: Progressing Problem: General Patient Education Goal: Knowledge of disease process, condition or treatment will be improved Outcome: Progressing Problem: Fall Risk Goal: Ability to state ways to decrease the risk of falls will improve Outcome: Progressing Goal: Will remain free from falls Outcome: Progressing Goal: Will remain free from injury from falls Outcome: Progressing Problem: Medication Regimen Goal: Knowledge of medication regimen will improve Outcome: Progressing Problem: Additional OB Conditions Goal: Will remain free from complications related to obstetric conditions Outcome: Progressing Problem: Lack of Knowledge Goal: Ability to develop a pain control plan will improve Outcome: Progressing Problem: Medication Goal: Satisfaction with pain management medication regimen will improve Outcome: Progressing Problem: Sensory Goal: Ability to identify factors that increase pain levels will improve while working to decrease the patient's pain levels Outcome: Progressing Problem: Coping Goal: Ability to cope will improve Outcome: Progressing Problem: Health Behavior Goal: Identification of resources available to assist in meeting health care needs will improve Outcome: Progressing Goals: Clinical Goals for the Shift: VSS, monitor for s/s of pre-e, rest Fdc Patient Centered Goal for Treatment: healthy mom and baby Summary: Patient resting in bed. Patient has no complaints of pain or other issues. Patient is comfortable in bed. Vital signs have been stable. * Plan of Care - Arabella Esparza - 08/05/2024 9:47 AM CDT Problem: Discharge Planning Goal: Understanding discharge needs will improve Outcome: Progressing Problem: General Patient Education Goal: Knowledge of disease process, condition or treatment will be improved Outcome: Progressing Problem: Fall Risk Goal: Ability to state ways to decrease the risk of falls will improve Outcome: Progressing Goal: Will remain free from falls Outcome: Progressing Goal: Will remain free from injury from falls Outcome: Progressing Problem: Medication Regimen Goal: Knowledge of medication regimen will improve Outcome: Progressing Problem: Additional OB Conditions Goal: Will remain free from complications related to obstetric conditions Outcome: Progressing Problem: Lack of Knowledge Goal: Ability to develop a pain control plan will improve Outcome: Progressing Problem: Medication Goal: Satisfaction with pain management medication regimen will improve Outcome: Progressing Problem: Sensory Goal: Ability to identify factors that increase pain levels will improve while working to decrease the patient's pain levels Outcome: Progressing Problem: Coping Goal: Ability to cope will improve Outcome: Progressing Problem: Health Behavior Goal: Identification of resources available to assist in meeting health care needs will improve Outcome: Progressing Goals: Clinical Goals for the Shift: vs wnl, reactive NST Fdc Patient Centered Goal for Treatment: healthy mom and baby Summary: RACHEL Mckay * Plan of Care - Kim Eugnee RN - 08/04/2024 9:22 PM CDT Goals: Clinical Goals for the Shift: monitor vss and promote rest Practice Administrator Patient Centered Goal for Treatment: healthy mom and baby Summary: Problem: Discharge Planning Goal: Understanding discharge needs will improve Outcome: Progressing Problem: General Patient Education Goal: Knowledge of disease process, condition or treatment will be improved Outcome: Progressing Problem: Fall Risk Goal: Ability to state ways to decrease the risk of falls will improve Outcome: Progressing Goal: Will remain free from falls Outcome: Progressing Goal: Will remain free from injury from falls Outcome: Progressing Problem: Medication Regimen Goal: Knowledge of medication regimen will improve Outcome: Progressing Problem: Additional OB Conditions Goal: Will remain free from complications related to obstetric conditions Outcome: Progressing Problem: Lack of Knowledge Goal: Ability to develop a pain control plan will improve Outcome: Progressing Problem: Medication Goal: Satisfaction with pain management medication regimen will improve Outcome: Progressing Problem: Sensory Goal: Ability to identify factors that increase pain levels will improve while working to decrease the patient's pain levels Outcome: Progressing Problem: Coping Goal: Ability to cope will improve Outcome: Progressing Problem: Health Behavior Goal: Identification of resources available to assist in meeting health care needs will improve Outcome: Progressing * Plan of Care - Livia Meléndez RN - 08/04/2024 8:38 AM CDT Problem: Discharge Planning Goal: Understanding discharge needs will improve Outcome: Progressing Problem: General Patient Education Goal: Knowledge of disease process, condition or treatment will be improved Outcome: Progressing Problem: Fall Risk Goal: Ability to state ways to decrease the risk of falls will improve Outcome: Progressing Goal: Will remain free from falls Outcome: Progressing Goal: Will remain free from injury from falls Outcome: Progressing Problem: Medication Regimen Goal: Knowledge of medication regimen will improve Outcome: Progressing Problem: Additional OB Conditions Goal: Will remain free from complications related to obstetric conditions Outcome: Progressing Problem: Lack of Knowledge Goal: Ability to develop a pain control plan will improve Outcome: Progressing Problem: Medication Goal: Satisfaction with pain management medication regimen will improve Outcome: Progressing Problem: Sensory Goal: Ability to identify factors that increase pain levels will improve while working to decrease the patient's pain levels Outcome: Progressing Problem: Coping Goal: Ability to cope will improve Outcome: Progressing Problem: Health Behavior Goal: Identification of resources available to assist in meeting health care needs will improve Outcome: Progressing Goals: Clinical Goals for the Shift: BP management, VSS, reactive NST, learn about next steps in care Fdc Patient Centered Goal for Treatment: healthy mom and baby Summary: Livia Meléndez RN * Plan of Care - Nick Solomon RN - 08/03/2024 8:14 PM CDT Problem: Discharge Planning Goal: Understanding discharge needs will improve Outcome: Progressing Problem: General Patient Education Goal: Knowledge of disease process, condition or treatment will be improved Outcome: Progressing Problem: Fall Risk Goal: Ability to state ways to decrease the risk of falls will improve Outcome: Progressing Goal: Will remain free from falls Outcome: Progressing Goal: Will remain free from injury from falls Outcome: Progressing Problem: Medication Regimen Goal: Knowledge of medication regimen will improve Outcome: Progressing Problem: Additional OB Conditions Goal: Will remain free from complications related to obstetric conditions Outcome: Progressing Problem: Lack of Knowledge Goal: Ability to develop a pain control plan will improve Outcome: Progressing Problem: Medication Goal: Satisfaction with pain management medication regimen will improve Outcome: Progressing Problem: Sensory Goal: Ability to identify factors that increase pain levels will improve while working to decrease the patient's pain levels Outcome: Progressing Problem: Coping Goal: Ability to cope will improve Outcome: Progressing Problem: Health Behavior Goal: Identification of resources available to assist in meeting health care needs will improve Outcome: Progressing Goals: Clinical Goals for the Shift: stable VS, monitor s/s pre-e, pain control, rest Fdc Patient Centered Goal for Treatment: healthy mom and baby Summary: Nick Solomon RN * Hospital Course - Ana Gauthier NP - 08/03/2024 4:33 PM CDT ANTEPARTUM HOSPITAL COURSE: Suki Leon is a 29 y.o. admitted at 26w4d is being managed for preeclampsia with severe features (SF). #PreE w/SF She was diagnosed based on newly elevated blood pressures that required intravenous medications prior to her transfer. Upon presentation to an outside hospital, sustained severe blood pressures necessitated Labetalol 20mg administration and a magnesium sulfate bolus was given before transfer. On adm ission, her blood pressures were within a normotensive to mild range and her labs were stable (CBC Hgb 11.4 Plt 278 /CMP Cr 0.56 AST 21 ALT 19/UPC 0.122). Blood pressures were closely monitoring withuptitration of antihypertensives. The patient was stable on Nifedipine XL 120 mg and Labetalol 300 mg three times daily. Monitoring includes CBC, CMP, and T&S every 72 hours, and the planned delivery is scheduled for 34 weeks, with a section set for September 19 at 13:30. #sinus tachycardia, intermittent #suspected reflex tachycardia from nifedipine She has experienced intermittent sinus tachycardia, suspected to be a reflex from Nifedipine, with an episode reaching 130-140 bpm on August 04. She was asymptomatic with a negative exam. Her D-dimer was [address] for pulmonary embolism returned negative. #Chronic headaches Additionally, the patient has a history of chronic headaches, described as similar to prior episodes, which respond to acetaminophen and reglan. She previously used nortriptyline before , and there is a plan to consider magnesium and riboflavin if headaches persist. #ear ache/fullness, improving An earache and fullness, which have been improving with treatment, were noted with no signs of infection upon examination. 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 Additionally, Twin B has mild left-sided ventriculomegaly. Both findings have prompted consultations with relevant pediatric specialists. #Depression/ Anxiety The patient???s medical history includes depression and anxiety, previously managed with SSRIs, butshe has maintained a stable mood without medication during this . #MO She has obesity, with a BMI of 47. #MWB #VZV equivocal #Rh negative - PNL: Rh Neg/Ab Neg/HIV NR/Rub Imm/RPR NR/HepB NR/GC/CT Not obtained/VZV Equiv - 1 hr GTT early 82 - 1hr GTT 106 - 3T HIV/RPR NR/NR - s/p flu vax 07/12, Tdap 08/09, RSV 09/05 - Rhogam 08/01 - GBS neg 09/03 - MOD: pCS on 09/19 - MOF: breast - MOC: nexplanon - AC: BID ppx lovenox L&D and PP Hospital course: Suki Leon is a 29 y.o. female at 34w0d weeks gestation, dated by 1st trimester ultrasound who presented to L&D for primary section. After obtaining the appropriate operative consents, the patient was taken to the operating room, where CSe was placed and confirmed to be adequate. Her was complicated by PreE w/SF, dep/anxiety, chronic headaches, aortic dilation of fetus B, lateral ventriculomegaly of twin B, MO, VZV equivical, Rh neg, and Shay TIUP . She underwent a primary Low Transverse Section via [place]. She delivered a viable Tiffany Leon [[id number]] male Nancy Leon [[id number]] male infant with apgars Tiffany Leon [[id number]] 9 Nancy Leon [[id number]] 8 and Tiffany Leon [[id number]] 9 Nancy Leon [[id number]] 9 at one and five minutes of life respectively. Delivery was uncomplicated. See operative report for full details. The patient was transferred to . Her course was uncomplicated. Prior to discharge, her pain was well controlled, she was voiding, passing gas, ambulating, and meeting all milestones. The patient was consented and registered for remote blood pressure monitoring. A blood pressure cuff has been given to the patient. She has confirmed receipt of test message. Her AVS was updated withdischarge instructions on use of the remote blood pressure monitoring system. She will follow up with her primary OB team (MFM). Symptoms of preeclampsia have been reviewed. # Mother/Baby: The patient has chosen to breastfeed her and has chosen implant for contraception. Nexplanon placed 09/20 STRAIGHTENING MACHINE OPERATOR STRAIGHTENING MACHINE OPERATOR STRAIGHTENING MACHINE OPERATOR STRAIGHTENING MACHINE OPERATOR STRAIGHTENING MACHINE OPERATOR STRAIGHTENING MACHINE OPERATOR STRAIGHTENING MACHINE OPERATOR STRAIGHTENING MACHINE OPERATOR STRAIGHTENING MACHINE OPERATOR STRAIGHTENING MACHINE OPERATOR STRAIGHTENING MACHINE OPERATOR * Plan of Care - Hilda Brunner RN - 08/03/2024 3:18 PM CDT Goals: Clinical Goals for the Shift: VSS Fdc Patient Centered Goal for Treatment: healthy mom and baby Summary: Problem: Discharge Planning Goal: Understanding discharge needs will improve Outcome: Progressing Problem: General Patient Education Goal: Knowledge of disease process, condition or treatment will be improved Outcome: Progressing Problem: Fall Risk Goal: Ability to state ways to decrease the risk of falls will improve Outcome: Progressing Goal: Will remain free from falls Outcome: Progressing Goal: Will remain free from injury from falls Outcome: Progressing Problem: Medication Regimen Goal: Knowledge of medication regimen will improve Outcome: Progressing Problem: Additional OB Conditions Goal: Will remain free from complications related to obstetric conditions Outcome: Progressing Problem: Lack of Knowledge Goal: Ability to develop a pain control plan will improve Outcome: Progressing Problem: Medication Goal: Satisfaction with pain management medication regimen will improve Outcome: Progressing Problem: Sensory Goal: Ability to identify factors that increase pain levels will improve while working to decrease the patient's pain levels Outcome: Progressing Problem: Coping Goal: Ability to cope will improve Outcome: Progressing Problem: Health Behavior Goal: Identification of resources available to assist in meeting health care needs will improve Outcome: Progressing * Plan of Care - Jessica Morel RN - 08/02/2024 8:26 PM CDT Problem: Discharge Planning Goal: Understanding discharge needs will improve Outcome: Progressing Problem: General Patient Education Goal: Knowledge of disease process, condition or treatment will be improved Outcome: Progressing Problem: Fall Risk Goal: Ability to state ways to decrease the risk of falls will improve Outcome: Progressing Goal: Will remain free from falls Outcome: Progressing Goal: Will remain free from injury from falls Outcome: Progressing Problem: Medication Regimen Goal: Knowledge of medication regimen will improve Outcome: Progressing Problem: Additional OB Conditions Goal: Will remain free from complications related to obstetric conditions Outcome: Progressing Problem: Lack of Knowledge Goal: Ability to develop a pain control plan will improve Outcome: Progressing Problem: Medication Goal: Satisfaction with pain management medication regimen will improve Outcome: Progressing Problem: Sensory Goal: Ability to identify factors that increase pain levels will improve while working to decrease the patient's pain levels Outcome: Progressing Problem: Coping Goal: Ability to cope will improve Outcome: Progressing Problem: Health Behavior Goal: Identification of resources available to assist in meeting health care needs will improve Outcome: Progressing Goals: Clinical Goals for the Shift: VSS, monitor for preeclampsia complications Fdc Patient Centered Goal for Treatment: healthy mom and baby * Plan of Care - Cha Kelly RN - 08/02/2024 2:09 PM CDT Problem: Discharge Planning Goal: Understanding discharge needs will improve Outcome: Progressing Problem: General Patient Education Goal: Knowledge of disease process, condition or treatment will be improved Outcome: Progressing Problem: Fall Risk Goal: Ability to state ways to decrease the risk of falls will improve Outcome: Progressing Goal: Will remain free from falls Outcome: Progressing Goal: Will remain free from injury from falls Outcome: Progressing Problem: Medication Regimen Goal: Knowledge of medication regimen will improve Outcome: Progressing Problem: Additional OB Conditions Goal: Will remain free from complications related to obstetric conditions Outcome: Progressing Problem: Lack of Knowledge Goal: Ability to develop a pain control plan will improve Outcome: Progressing Problem: Medication Goal: Satisfaction with pain management medication regimen will improve Outcome: Progressing Problem: Sensory Goal: Ability to identify factors that increase pain levels will improve while working to decrease the patient's pain levels Outcome: Progressing Problem: Coping Goal: Ability to cope will improve Outcome: Progressing Problem: Health Behavior Goal: Identification of resources available to assist in meeting health care needs will improve Outcome: Progressing Goals: Clinical Goals for the Shift: VSS, monitor for complications related to preeclampsia, reactive and reassuring monitoring x 2, Fdc Patient Centered Goal for Treatment: healthy mom and baby * Plan of Care - Torrie Cline RN - 08/01/2024 9:27 PM CDT Goals: Clinical Goals for the Shift: vss, pain control for headache, monitor s/s of pre-E, rest Fdc Patient Centered Goal for Treatment: healthy mom and baby Problem: Discharge Planning Goal: Understanding discharge needs will improve Outcome: Progressing Problem: General Patient Education Goal: Knowledge of disease process, condition or treatment will be improved Outcome: Progressing Problem: Fall Risk Goal: Ability to state ways to decrease the risk of falls will improve Outcome: Progressing Goal: Will remain free from falls Outcome: Progressing Goal: Will remain free from injury from falls Outcome: Progressing Problem: Medication Regimen Goal: Knowledge of medication regimen will improve Outcome: Progressing Problem: Additional OB Conditions Goal: Will remain free from complications related to obstetric conditions Outcome: Progressing Problem: Lack of Knowledge Goal: Ability to develop a pain control plan will improve Outcome: Progressing Problem: Medication Goal: Satisfaction with pain management medication regimen will improve Outcome: Progressing Problem: Sensory Goal: Ability to identify factors that increase pain levels will improve while working to decrease the patient's pain levels Outcome: Progressing Problem: Coping Goal: Ability to cope will improve Outcome: Progressing Problem: Health Behavior Goal: Identification of resources available to assist in meeting health care needs will improve Outcome: Progressing Summary: Torrie Cline RN * Plan of Arabella Zarate - 08/01/2024 8:19 AM CDT Problem: Discharge Planning Goal: Understanding discharge needs will improve Outcome: Progressing Problem: General Patient Education Goal: Knowledge of disease process, condition or treatment will be improved Outcome: Progressing Problem: Additional OB Conditions Goal: Will remain free from complications related to obstetric conditions Outcome: Progressing Problem: Fall Risk Goal: Ability to state ways to decrease the risk of falls will improve Outcome: Progressing Goal: Will remain free from falls Outcome: Progressing Goal: Will remain free from injury from falls Outcome: Progressing Problem: Medication Regimen Goal: Knowledge of medication regimen will improve Outcome: Progressing Goals: Clinical Goals for the Shift: vs wnl, reactive NST, monitor BP Fdc Patient Centered Goal for Treatment: Positive outcomes for patient and babies Summary: RACHEL Mckay * Plan of Care - Kim Eugene RN - 07/31/2024 8:42 PM CDT Goals: Clinical Goals for the Shift: monitor vss and promote rest Practice Administrator Patient Centered Goal for Treatment: Positive outcomes for patient and babies Summary: Problem: Discharge Planning Goal: Understanding discharge needs will improve Outcome: Progressing Problem: General Patient Education Goal: Knowledge of disease process, condition or treatment will be improved Outcome: Progressing Problem: Fall Risk Goal: Ability to state ways to decrease the risk of falls will improve Outcome: Progressing Goal: Will remain free from falls Outcome: Progressing Goal: Will remain free from injury from falls Outcome: Progressing Problem: Medication Regimen Goal: Knowledge of medication regimen will improve Outcome: Progressing Problem: Additional OB Conditions Goal: Will remain free from complications related to obstetric conditions Outcome: Progressing * Plan of Care - Singh Sainz RN - 07/31/2024 6:11 PM CDT Problem: Discharge Planning Goal: Understanding discharge needs will improve Outcome: Progressing Problem: General Patient Education Goal: Knowledge of disease process, condition or treatment will be improved Outcome: Progressing Problem: Fall Risk Goal: Ability to state ways to decrease the risk of falls will improve Outcome: Progressing Goal: Will remain free from falls Outcome: Progressing Goal: Will remain free from injury from falls Outcome: Progressing Problem: Medication Regimen Goal: Knowledge of medication regimen will improve Outcome: Progressing Problem: Additional OB Conditions Goal: Will remain free from complications related to obstetric conditions Outcome: Progressing Goals: Clinical Goals for the Shift: VSS; reactive NST. Practice Administrator Patient Centered Goal for Treatment: Positive outcomes for patient and babies Summary: Reactive NST x 2. BP WNL - mild range. * Plan of Care - Cha Kelly RN - 07/30/2024 1:17 PM CDT Problem: Discharge Planning Goal: Understanding discharge needs will improve Outcome: Progressing Problem: General Patient Education Goal: Knowledge of disease process, condition or treatment will be improved Outcome: Progressing Problem: Fall Risk Goal: Ability to state ways to decrease the risk of falls will improve Outcome: Progressing Goal: Will remain free from falls Outcome: Progressing Goal: Will remain free from injury from falls Outcome: Progressing Problem: Medication Regimen Goal: Knowledge of medication regimen will improve Outcome: Progressing Problem: Additional OB Conditions Goal: Will remain free from complications related to obstetric conditions Outcome: Progressing Clinical Goals for the Shift: VSS, monitor for s/sx of preeclampsia, reactive and reassuring monitoring x 2, promote rest. Practice Administrator Patient Centered Goal for Treatment: healthy mom and babies * Plan of Care - Nancy Garcia RN - 07/29/2024 7:19 PM CDT Problem: Discharge Planning Goal: Understanding discharge needs will improve Outcome: Progressing Problem: General Patient Education Goal: Knowledge of disease process, condition or treatment will be improved Outcome: Progressing Problem: Fall Risk Goal: Ability to state ways to decrease the risk of falls will improve Outcome: Progressing Goal: Will remain free from falls Outcome: Progressing Goal: Will remain free from injury from falls Outcome: Progressing Problem: Medication Regimen Goal: Knowledge of medication regimen will improve Outcome: Progressing Problem: Additional OB Conditions Goal: Will remain free from complications related to obstetric conditions Outcome: Progressing Goals: Summary: Nancy Garcia RN * Initial Assessments - Millie Pierce LCSW - 07/29/2024 1:54 PM CDT Reason for Admission Pt (Suki Salgadoth Leon 1995) was admitted on 07/29/2024 for Preeclampsia, unspecified trimester [O14.90]. Social Work met with Suki Leon for [facility] check in. Medical History OB-EQUIPMENT RECORDS SUPERVISOR care has been established with Varghese CARRANZA. Medical insurance coverage is through [employer] and [employer]. Pt is currently 26.4 weeks gestation. Social History Current address is [address] [place] [id number], where she lives with her . Currently [phone] (home) is the best phone number for future contact. Pt reports that her and family will be a positive support for her. /Father of the baby, Florentino Leon, can be reached at [phone]. FOB has been present and supportive at the hospital. Mood and Anxiety Maternal history of anxiety noted in chart. Pt reports some adjustment to [facility] hospital admission, but state she is currently coping well. Pt is not currently prescribed any medication management. No concerns of depressive symptoms noted recently or currently. Social Work and pt discussed the signs and symptoms of Mood and Anxiety Disorder. Warning signs reviewed and pt encouraged toseek medical and mental health treatment if symptoms arise including possible medication management. Social Work discussed and normalized increase in emotions and the importance of self- care. Social Work encouraged pt to take time for herself and utilize supports available. Pt engaged in conversation and demonstrates knowledge. Pt confirms that she feels supported by her family/friends and can reach out to her supports or medical staff for follow up if symptoms arise. Resources Provided and Goals Addressed Social Determinants of Health: Pt reports no issues with transportation, access to food, supports or finances. SW educated pt on lodging options upon delivery with the expectation that will be admitted to the NICU. Pt thankful for the information and reports wanting local lodging assistance after delivery. SW will followand assist with lodging. SW educated pt on activities available while she remains inpatient, such as arts and crafts, outside garden and the 2nd floor lounge. Pt thankful for the information and looking forward to utilizing those services. Strengths Pt is open and receptive to Social Work intervention, education, and resources. Safe Discharge Plan Social Work will continue to attend [facility] and collaborate with medical team. Social Work will follow for support and additional needs should they arise. ARACELIS Tyler, INDUSTRIAL MACHINE OPERATOR [facility] Clinical Police Communications Operator [facility] * Plan of Care - Dave Juarez RN - 07/29/2024 8:26 AM CDT Problem: Discharge Planning Goal: Understanding discharge needs will improve Outcome: Progressing Problem: General Patient Education Goal: Knowledge of disease process, condition or treatment will be improved Outcome: Progressing Problem: Fall Risk Goal: Ability to state ways to decrease the risk of falls will improve Outcome: Progressing Goal: Will remain free from falls Outcome: Progressing Goal: Will remain free from injury from falls Outcome: Progressing Problem: Medication Regimen Goal: Knowledge of medication regimen will improve Outcome: Progressing Problem: Additional OB Conditions Goal: Will remain free from complications related to obstetric conditions Outcome: Progressing Goals: Summary: * Plan of Care - Nancy Garcia RN - 07/29/2024 5:17 AM CDT Problem: Discharge Planning Goal: Understanding discharge needs will improve Outcome: Progressing Problem: General Patient Education Goal: Knowledge of disease process, condition or treatment will be improved Outcome: Progressing Problem: Fall Risk Goal: Ability to state ways to decrease the risk of falls will improve Outcome: Progressing Goal: Will remain free from falls Outcome: Progressing Goal: Will remain free from injury from falls Outcome: Progressing Problem: Medication Regimen Goal: Knowledge of medication regimen will improve Outcome: Progressing Problem: Additional OB Conditions Goal: Will remain free from complications related to obstetric conditions Outcome: Progressing Goals: Summary: Nancy Garcia RN documented in this encounter Plan of Treatment Not on file documented as of this encounter Procedures Procedure Name Priority Date/Time Associated Diagnosis Comments RH IMMUNE GLOBULIN EVAL Timed 09/20/2024 4:48 AM WIRE STRAIGHTENING MACHINE OPERATOR BLEED SCREEN Timed 09/20/2024 4: 48 AM WIRE STRAIGHTENING MACHINE OPERATOR ABO/RH Timed 09/20/2024 4:48 AM WIRE STRAIGHTENING MACHINE OPERATOR CBC WITHOUT DIFFERENTIAL Routine 09/20/2024 4:48 AM WIRE STRAIGHTENING MACHINE OPERATOR SURGICAL PATHOLOGY Routine 09/19/2024 4: 06 PM WIRE STRAIGHTENING MACHINE OPERATOR SECTION 09/19/2024 1:56 PM WIRE STRAIGHTENING MACHINE OPERATOR TIUP Case Notes PreE w/ SF and Multiple gestation EGFR Timed 09/18/2024 6:21 AM WIRE STRAIGHTENING MACHINE OPERATOR CBC WITHOUT DIFFERENTIAL Timed 09/18/2024 6:21 AM WIRE STRAIGHTENING MACHINE OPERATOR TYPE AND SCREEN Timed 09/18/2024 6:21 AM WIRE STRAIGHTENING MACHINE OPERATOR COMPREHENSIVE METABOLIC PANEL Timed 09/18/2024 6:21 AM WIRE STRAIGHTENING MACHINE OPERATOR NONSTRESS TEST Routine 09/17/2024 2:58 PM WIRE STRAIGHTENING MACHINE OPERATOR Preeclampsia, unspecified trimester 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 US OB FOLLOW UP IP Routine 09/15/2024 1:08 PM WIRE STRAIGHTENING MACHINE OPERATOR EGFR Timed 09/15/2024 6:17 AM WIRE STRAIGHTENING MACHINE OPERATOR CBC WITHOUT DIFFERENTIAL Timed 09/15/2024 6:17 AM WIRE STRAIGHTENING MACHINE OPERATOR TYPE AND SCREEN Timed 09/15/2024 6:17 AM WIRE STRAIGHTENING MACHINE OPERATOR COMPREHENSIVE METABOLIC PANEL Timed 09/15/2024 6:17 AM WIRE STRAIGHTENING MACHINE OPERATOR NONSTRESS TEST Routine 09/13/2024 5:10 PM WIRE STRAIGHTENING MACHINE OPERATOR Preeclampsia, unspecified trimester 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 EGFR Timed 09/12/2024 6:35 AM WIRE STRAIGHTENING MACHINE OPERATOR CBC WITHOUT DIFFERENTIAL Timed 09/12/2024 6:35 AM WIRE STRAIGHTENING MACHINE OPERATOR TYPE AND SCREEN Timed 09/12/2024 6:35 AM WIRE STRAIGHTENING MACHINE OPERATOR COMPREHENSIVE METABOLIC PANEL Timed 09/12/2024 6:35 AM WIRE STRAIGHTENING MACHINE OPERATOR EGFR Timed 09/09/2024 6:24 AM WIRE STRAIGHTENING MACHINE OPERATOR CBC WITHOUT DIFFERENTIAL Timed 09/09/2024 6:24 AM WIRE STRAIGHTENING MACHINE OPERATOR TYPE AND SCREEN Timed 09/09/2024 6:24 AM WIRE STRAIGHTENING MACHINE OPERATOR COMPREHENSIVE METABOLIC PANEL Timed 09/09/2024 6:24 AM WIRE STRAIGHTENING MACHINE OPERATOR US OB LIMITED IP Routine 09/08/2024 10:29 AM WIRE STRAIGHTENING MACHINE OPERATOR NONSTRESS TEST Routine 09/06/2024 8:38 PM WIRE STRAIGHTENING MACHINE OPERATOR Preeclampsia, unspecified trimester 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 EGFR Timed 09/06/2024 4:31 AM WIRE STRAIGHTENING MACHINE OPERATOR CBC WITHOUT DIFFERENTIAL Timed 09/06/2024 4:31 AM WIRE STRAIGHTENING MACHINE OPERATOR TYPE AND SCREEN Timed 09/06/2024 4:31 AM WIRE STRAIGHTENING MACHINE OPERATOR COMPREHENSIVE METABOLIC PANEL Timed 09/06/2024 4:31 AM WIRE STRAIGHTENING MACHINE OPERATOR GROUP B STREPTOCOCCUS CULTURE Routine 09/03/2024 10:29 AM WIRE STRAIGHTENING MACHINE OPERATOR EGFR Timed 09/03/2024 5:26 AM WIRE STRAIGHTENING MACHINE OPERATOR CBC WITHOUT DIFFERENTIAL Timed 09/03/2024 5:26 AM WIRE STRAIGHTENING MACHINE OPERATOR TYPE AND SCREEN Timed 09/03/2024 5:26 AM WIRE STRAIGHTENING MACHINE OPERATOR COMPREHENSIVE METABOLIC PANEL Timed 09/03/2024 5:26 AM WIRE STRAIGHTENING MACHINE OPERATOR ECG 12-LEAD Routine 09/02/2024 4:33 PM WIRE STRAIGHTENING MACHINE OPERATOR EGFR Timed 08/31/2024 6:20 AM WIRE STRAIGHTENING MACHINE OPERATOR CBC WITHOUT DIFFERENTIAL Timed 08/31/2024 6:20 AM WIRE STRAIGHTENING MACHINE OPERATOR TYPE AND SCREEN Timed 08/31/2024 6:20 AM WIRE STRAIGHTENING MACHINE OPERATOR COMPREHENSIVE METABOLIC PANEL Timed 08/31/2024 6:20 AM WIRE STRAIGHTENING MACHINE OPERATOR NONSTRESS TEST Routine 08/29/2024 2:32 PM WIRE STRAIGHTENING MACHINE OPERATOR Preeclampsia, unspecified trimester 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 NONSTRESS TEST Routine 08/28/2024 7:47 PM WIRE STRAIGHTENING MACHINE OPERATOR Preeclampsia, unspecified trimester 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 EGFR Timed 08/28/2024 6:00 AM WIRE STRAIGHTENING MACHINE OPERATOR CBC WITHOUT DIFFERENTIAL Timed 08/28/2024 6:00 AM WIRE STRAIGHTENING MACHINE OPERATOR TYPE AND SCREEN Timed 08/28/2024 6:00 AM WIRE STRAIGHTENING MACHINE OPERATOR COMPREHENSIVE METABOLIC PANEL Timed 08/28/2024 6:00 AM WIRE STRAIGHTENING MACHINE OPERATOR EGFR Timed 08/25/2024 6:19 AM WIRE STRAIGHTENING MACHINE OPERATOR CBC WITHOUT DIFFERENTIAL Timed 08/25/2024 6:19 AM WIRE STRAIGHTENING MACHINE OPERATOR TYPE AND SCREEN Timed 08/25/2024 6:19 AM WIRE STRAIGHTENING MACHINE OPERATOR COMPREHENSIVE METABOLIC PANEL Timed 08/25/2024 6:19 AM WIRE STRAIGHTENING MACHINE OPERATOR US OB FOLLOW UP IP Routine 08/24/2024 9:37 AM WIRE STRAIGHTENING MACHINE OPERATOR EGFR Timed 08/22/2024 6:02 AM WIRE STRAIGHTENING MACHINE OPERATOR CBC WITHOUT DIFFERENTIAL Timed 08/22/2024 6:02 AM WIRE STRAIGHTENING MACHINE OPERATOR TYPE AND SCREEN Timed 08/22/2024 6:02 AM WIRE STRAIGHTENING MACHINE OPERATOR COMPREHENSIVE METABOLIC PANEL Timed 08/22/2024 6:02 AM WIRE STRAIGHTENING MACHINE OPERATOR EGFR Timed 08/19/2024 6:25 AM WIRE STRAIGHTENING MACHINE OPERATOR CBC WITHOUT DIFFERENTIAL Timed 08/19/2024 6:25 AM WIRE STRAIGHTENING MACHINE OPERATOR TYPE AND SCREEN Timed 08/19/2024 6:25 AM WIRE STRAIGHTENING MACHINE OPERATOR COMPREHENSIVE METABOLIC PANEL Timed 08/19/2024 6:25 AM WIRE STRAIGHTENING MACHINE OPERATOR US OB LIMITED IP Routine 08/16/2024 8:35 AM WIRE STRAIGHTENING MACHINE OPERATOR ANTIBODY IDENTIFICATION Routine 08/16/2024 7:34 AM WIRE STRAIGHTENING MACHINE OPERATOR EGFR Timed 08/16/2024 6:15 AM WIRE STRAIGHTENING MACHINE OPERATOR THYROID FUNCTION CASCADE Routine 08/16/2024 6:15 AM WIRE STRAIGHTENING MACHINE OPERATOR CBC WITHOUT DIFFERENTIAL Timed 08/16/2024 6:15 AM WIRE STRAIGHTENING MACHINE OPERATOR TYPE AND SCREEN Timed 08/16/2024 6:15 AM WIRE STRAIGHTENING MACHINE OPERATOR COMPREHENSIVE METABOLIC PANEL Timed 08/16/2024 6:15 AM WIRE STRAIGHTENING MACHINE OPERATOR POCT GLUCOSE DEVICE Routine 08/14/2024 3 :06 PM WIRE STRAIGHTENING MACHINE OPERATOR ECG 12-LEAD Routine 08/13/2024 9:02 AM WIRE STRAIGHTENING MACHINE OPERATOR ANTIBODY IDENTIFICATION Routine 08/13/2024 7:42 AM WIRE STRAIGHTENING MACHINE OPERATOR EGFR Timed 08/13/2024 5:44 AM WIRE STRAIGHTENING MACHINE OPERATOR HIV 1/2 ANTIBODY PLUS P24 ANTIGEN Routine 08/13/2024 5:44 AM WIRE STRAIGHTENING MACHINE OPERATOR RPR Routine 08/13/2024 5:44 AM WIRE STRAIGHTENING MACHINE OPERATOR CBC WITHOUT DIFFERENTIAL Timed 08/13/2024 5:44 AM WIRE STRAIGHTENING MACHINE OPERATOR TYPE AND SCREEN Timed 08/13/2024 5:44 AM WIRE STRAIGHTENING MACHINE OPERATOR COMPREHENSIVE METABOLIC PANEL Timed 08/13/2024 5:44 AM WIRE STRAIGHTENING MACHINE OPERATOR GTT 50GM 1HR GESTATIONAL SCREEN Timed 08/12/2024 11:29 AM WIRE STRAIGHTENING MACHINE OPERATOR ANTIBODY IDENTIFICATION Routine 08/10/2024 7:02 AM WIRE STRAIGHTENING MACHINE OPERATOR EGFR Timed 08/10/2024 4:49 AM WIRE STRAIGHTENING MACHINE OPERATOR CBC WITHOUT DIFFERENTIAL Timed 08/10/2024 4:49 AM WIRE STRAIGHTENING MACHINE OPERATOR TYPE AND SCREEN Timed 08/10/2024 4:49 AM WIRE STRAIGHTENING MACHINE OPERATOR COMPREHENSIVE METABOLIC PANEL Timed 08/10/2024 4:49 AM WIRE STRAIGHTENING MACHINE OPERATOR US OB 14 WEEKS OR OVER IP Routine 08/09/2024 9:47 AM WIRE STRAIGHTENING MACHINE OPERATOR ANTIBODY IDENTIFICATION Routine 08/07/2024 6:51 AM WIRE STRAIGHTENING MACHINE OPERATOR EGFR Timed 08/07/2024 5:00 AM WIRE STRAIGHTENING MACHINE OPERATOR CBC WITHOUT DIFFERENTIAL Timed 08/07/2024 5:00 AM WIRE STRAIGHTENING MACHINE OPERATOR COMPREHENSIVE METABOLIC PANEL Timed 08/07/2024 5:00 AM WIRE STRAIGHTENING MACHINE OPERATOR TYPE AND SCREEN Timed 08/07/2024 4:45 AM WIRE STRAIGHTENING MACHINE OPERATOR CT CHEST PE W CONTRAST ED Urgent/IP Urgent 08/05/2024 12:52 AM CDT RESPIRATORY PATHOGEN PANEL Routine 08/04/2024 6:28 PM CDT D-DIMER, QUANTITATIVE STAT 08/04/2024 6:28 PM CDT ECG 12-LEAD Routine 08/04/2024 5:45 PM CDT ECG 12-LEAD Routine 08/04/2024 11:54 AM CDT ANTIBODY IDENTIFICATION Routine 08/04/2024 6:12 AM CDT LUPUS ANTICOAGULANT PANEL PLUS REFLEXES Timed 08/04/2024 4:48 AM CDT EGFR Timed 08/04/2024 4:48 AM CDT BETA 2 GLYCOPROTEIN IGM AB Timed 08/04/2024 4:48 AM CDT BETA 2 GLYCOPROTEIN IGG AB Timed 08/04/2024 4:48 AM CDT CARDIOLIPIN ANTIBODY, IGG AND IGM Timed 08/04/2024 4:48 AM CDT CBC WITHOUT DIFFERENTIAL Timed 08/04/2024 4:48 AM CDT TYPE AND SCREEN Timed 08/04/2024 4:48 AM CDT COMPREHENSIVE METABOLIC PANEL Timed 08/04/2024 4:48 AM CDT ECHOCARDIOGRAM Routine 08/03/2024 4:07 PM CDT ECHOCARDIOGRAM Routine 08/03/2024 4:06 PM CDT US OB LIMITED IP Routine 08/02/2024 11:48 AM CDT GROUP B STREPTOCOCCUS CULTURE Routine 08/01/2024 4:09 PM CDT EGFR Timed 08/01/2024 4:33 AM CDT CBC WITHOUT DIFFERENTIAL Timed 08/01/2024 4:33 AM CDT TYPE AND SCREEN Timed 08/01/2024 4:33 AM CDT COMPREHENSIVE METABOLIC PANEL Timed 08/01/2024 4:33 AM CDT CBC WITHOUT DIFFERENTIAL Routine 07/31/2024 5:09 AM CDT MAGNESIUM Routine 07/31/2024 5:07 AM CDT EGFR Routine 07/30/2024 4:49 AM CDT CBC WITHOUT DIFFERENTIAL Routine 07/30/2024 4:49 AM CDT MAGNESIUM Routine 07/30/2024 4:49 AM CDT COMPREHENSIVE METABOLIC PANEL Routine 07/30/2024 4:49 AM CDT B CHECK SAMPLE STAT 07/29/2024 6:47 AM CDT EGFR Routine 07/29/2024 5:43 AM CDT HIV 1/2 ANTIBODY PLUS P24 ANTIGEN Routine 07/29/2024 5:43 AM CDT PROTEIN / CREATININE RATIO, URINE, RANDOM Routine 07/29/2024 5:43 AM CDT RPR Routine 07/29/2024 5:43 AM CDT CBC WITHOUT DIFFERENTIAL Routine 07/29/2024 5:43 AM CDT TYPE AND SCREEN Timed 07/29/2024 5:43 AM CDT MAGNESIUM Routine 07/29/2024 5:43 AM CDT COMPREHENSIVE METABOLIC PANEL Routine 07/29/2024 5:43 AM CDT documented in this encounter Results * Bleed Screen (09/20/2024 4:48 AM WIRE STRAIGHTENING MACHINE OPERATOR) Bleed Screen Negative Blood 09/20/2024 4:48 AM WIRE STRAIGHTENING MACHINE OPERATOR 09/20/2024 5:03 AM WIRE STRAIGHTENING MACHINE OPERATOR Rey Quinonez MD LAB BLOOD BANK TEST ORDERABLE S Final Result Performing Organization Address [facility] Co de Phone Number [facility] [place] [address] * ABO/Rh (09/20/2024 4:48 AM WIRE STRAIGHTENING MACHINE OPERATOR) Pathologist [facility] ABO Rh O Negative Blood 09/20/2024 4:48 AM WIRE STRAIGHTENING MACHINE OPERATOR 09/20/2024 5:03 AM WIRE STRAIGHTENING MACHINE OPERATOR Rey Quinonez MD LAB BLOOD BANK TEST ORDERABLE S Final Result Performing Organization Address [facility] de Phone Number [facility] [place] [address] * Rh Immune Globulin Eval (09/20/2024 4:48 AM WIRE STRAIGHTENING MACHINE OPERATOR) Pathologist [facility] RhIg Administration 1 vial of Rh Immune Globulin (300 mcg dose) RhIg Eligible Yes, eligible [facility] Blood 09/20/2024 4:48 AM WIRE STRAIGHTENING MACHINE OPERATOR 09/20/2024 5:03 AM WIRE STRAIGHTENING MACHINE OPERATOR Narrative [facility] - 09/20/2024 5:36 AM WIRE STRAIGHTENING MACHINE OPERATOR Number of weeks ?->20 weeks or greater antibody screen result:->Negative Rhogam given?->Given Date Given?->08/01/24 Number of vials requested:->1 Sara Eng MD LAB BLOOD BANK TEST ORDERABL ES Final Result Performing Organization Address [facility] Co de Phone Number [facility] [employer] [place], [place] [id number] * (ABNORMAL) CBC without differential (09/20/2024 4:48 AM WIRE STRAIGHTENING MACHINE OPERATOR) [facility] WBC 10.3(H) 3.8 - 9.9 K/cumm Hgb 9.7(L) 11.9 - 15.5 g/dL [facility] Hct 28.4(L) 35.6 - 45.5 % [facility] Plt 230 150 - 400 K/cumm [facility] MPV 10.8 9.1 - 12.3 fL [facility] RBC 3.22(L) 3.90 - 5.20 M/cumm [facility] MCV 88.2 81.3 - 96.4 fL [facility] MCH 30.1 27.1 - 33.3 pg [facility] MCHC 34.2 32.3 - 35.7 g/dL [facility] RDW CV 13.9 11.1 - 14.9 % [facility] RDW SD 44.6 35.7 - 48.1 fL [facility] NRBC abs 0.00 0.00 - 0.01 K/cumm [facility] Blood 09/20/2024 4:48 AM WIRE STRAIGHTENING MACHINE OPERATOR 09/20/2024 5:11 AM WIRE STRAIGHTENING MACHINE OPERATOR Sara Eng MD LAB BLOOD ORDERABLES Final R esult Performing Organization Address City/State/[facility] Co de Phone Number [facility] Department [place] [address] * Surgical pathology (09/19/2024 4:06 PM WIRE STRAIGHTENING MACHINE OPERATOR) Tissue (Placenta) 09/19/2024 4:06 PM WIRE STRAIGHTENING MACHINE OPERATOR 09/20/2024 8:37 AM WIRE STRAIGHTENING MACHINE OPERATOR Narrative PATHOLOGY [facility] - 09/26/2024 2:16 PM WIRE STRAIGHTENING MACHINE OPERATOR EPIC results best viewed via link to PDF [facility] [place] [address] Note to Patients: This report may contain [...] REPORT FINAL Patient Name: ?? SUKI LEON #: ??[id number] Gender: ??F : ??[id number] (Age: 29) Address: ??[address] [place] [address] ??[id number] Hospital #: ??[id number] Taken:09/19/2024 Received:09/20/2024 Reported: 09/26/2024 Patient Type: [facility] Inpatient ?? Service: Obstetrics Location: [facility] ??6800 Physician(s): ??MD Sara Parker M.D. Diagnosis: ??Placenta, delivery - 662 grams diamnionic, monochorionic, pre-term twin placenta - Acute atherosis - Accelerated villous maturation -Trivascular cords with no histopathologic abnormalities [facility]/09/26/2024 14:16 By this signature, I attest that [...] discrete lesions or infarcts are grossly identified. ??Corn Cutter Operator sections are submitted: ??A1 = arbitrarily assigned twin A, cord and membranes; A2-4 = twin A, automotive leasing sales representative parenchyma; A5 = common membrane and T- zone; A6 = arbitrarily assigned twin B, cord and membranes; A7-9 = twin B, automotive leasing sales representative parenchyma. ??Jar 3. ? sxv/09/21/2024 11:11 PA(s): Catalino Hernandez MS, FREDRICK ([facility])CM By this signature, I attest that the above diagnosis is based upon my personal examination of the slides(and/or other material). Addenda/Procedures The performance characteristics of some immunohistochemical stains, fluorescence in-situ hybridization tests and immunophenotyping by flow cytometry cited in this report (if any) were determined by the Surgical Pathology and Flow Cytometry Departments at [facility] as part of an ongoing quality systems manager program and in compliance with federally mandated [...] Surgical Pathology and Flow Cytometry Departments of [facility]. ??It has not been cleared or approved by the U. S. Food and Drug Administration. IMAGES AND SCANNED DOCUMENTS, IF INCLUDED, ONLY VIEWABLE IN PDF VERSION OF REPORT us Sara Eng MD LAB PATHOLOGY ORDERABLES Fin al Result PATHOLOGY [facility] IOH 3rd Floor [place], [place] [phone] * eGFR (09/18/2024 6:21 AM WIRE STRAIGHTENING MACHINE OPERATOR) eGFR >90 >=60 mL/min/1. 73 m2 Comment: [...] last reviewed 2021. Blood 09/18/2024 6:21 AM WIRE STRAIGHTENING MACHINE OPERATOR 09/18/2024 6:32 AM WIRE STRAIGHTENING MACHINE OPERATOR us Anastasia Amaro MD LAB BLOOD ORDERABLES Final Result [facility] Department [place] [address] * (ABNORMAL) Comprehensive metabolic panel (09/18/2024 6:21 AM WIRE STRAIGHTENING MACHINE OPERATOR) Sodium 134(L) 135 - 145 mmol/L Potassium, pl 3.8 3.3 - 4.9 mmol/L [facility] Chloride 105 97 - 110 mmol/L [facility] CO2 23 22 - 32 mmol/L [facility] Anion gap 6 2 - 15 mmol/L [facility] BUN 9 6 - 25 mg/dL [facility] Creatinine 0.69 0.60 - 1.10 mg/dL [facility] Glucose 68(L) 70 - 199 mg/dL [facility] Comment: Interpretive Data Fasting glucose >/= 126 [...] 2022. Calcium 9.0 8.5 - 10.3 mg/dL [facility] Bilirubin, total 0.2 0.1 - 1.2 mg/dL [facility] Protein, pl 6.3(L) 6.5 - 8.5 g/dL [facility] Albumin 3.0(L) 3.5 - 5.0 g/dL [facility] Alk phos 125 40 - 130 Units/L [facility] ALT 14 7 - 45 Units/L [facility] AST 16 10 - 45 Units/L [facility] Blood 09/18/2024 6:21 AM WIRE STRAIGHTENING MACHINE OPERATOR 09/18/2024 6:32 AM WIRE STRAIGHTENING MACHINE OPERATOR us Anastasia Amaro MD LAB BLOOD ORDERABLES Final Result [facility] Department [place] [address] * (ABNORMAL) CBC without differential (09/18/2024 6:21 AM WIRE STRAIGHTENING MACHINE OPERATOR) WBC 10.0(H) 3.8 - 9.9 K/cumm Hgb 11.6(L) 11.9 - 15.5 g/dL [facility] Hct 34.0(L) 35.6 - 45.5 % [facility] Plt 250 150 - 400 K/cumm [facility] MPV 11.0 9.1 - 12.3 fL [facility] RBC 3.92 3.90 - 5.20 M/cumm [facility] MCV 86.7 81.3 - 96.4 fL [facility] MCH 29.6 27.1 - 33.3 pg [facility] MCHC 34.1 32.3 - 35.7 g/dL [facility] RDW CV 13.7 11.1 - 14.9 % [facility] RDW SD 43.1 35.7 - 48.1 fL [facility] NRBC abs 0.00 0.00 - 0.01 K/cumm [facility] Blood 09/18/2024 6:21 AM WIRE STRAIGHTENING MACHINE OPERATOR 09/18/2024 6:32 AM WIRE STRAIGHTENING MACHINE OPERATOR Anastasia Amaro MD LAB BLOOD ORDERABLES Final Result Performing Organization Address City/[facility] Co de Phone Number [facility] [place] [address] * Type and screen (09/18/2024 6:21 AM WIRE STRAIGHTENING MACHINE OPERATOR) Abiodun, indirect Negative ABO Rh O Negative [facility] Blood 09/18/2024 6:21 AM WIRE STRAIGHTENING MACHINE OPERATOR 09/18/2024 6:35 AM WIRE STRAIGHTENING MACHINE OPERATOR Narrative [facility] - 09/18/2024 7:42 AM WIRE STRAIGHTENING MACHINE OPERATOR Has the patient had Daratumumab or Isatuximab in the past 6 months?->Unknown Anastasia Amaro MD LAB BLOOD BANK TEST ORDERA BLES Final Result [facility] [place] [address] * nonstress test (09/17/2024 2:58 PM WIRE STRAIGHTENING MACHINE OPERATOR) Narrative Raghuraman, Sandra, MD - 09/17/2024 2:58 PM WIRE STRAIGHTENING MACHINE OPERATOR Joellen Schilling MD ? 09/17/2024 ??4:04 PM nonstress test Date/Time: 09/17/2024 2:58 PM Performed by: Maureen Calix MD Authorized by: Ana M Rogers MD ?? us Ana M Rogers MD OB GYNE ORDERABLES Fi nal Result * US Ob Follow Up (09/15/2024 1:08 PM WIRE STRAIGHTENING MACHINE OPERATOR) Fetus# Fetus1 VIEWPOINT Estimated Weight 1,709 g&grams VIEWPOINT Placenta Details anterior VIEWPOINT Presentation Vertex; Maternal right- low VIEWPOINT Fetus# Fetus2 VIEWPOINT Estimated Weight 2,585 g&grams VIEWPOINT Placenta Details anterior VIEWPOINT Presentation Vertex; Maternal left- high VIEWPOINT Anatomical Region Laterality Modality Abdomen N/A Ultrasound 09/15/2024 1:08 PM WIRE STRAIGHTENING MACHINE OPERATOR Impressions 09/15/2024 2:24 PM WIRE STRAIGHTENING MACHINE OPERATOR Diamniotic (presumed MCDA) TIUP at 33w33d who is admitted for preE with severe features who presents for growth US was previously determined to be monochorionic by the [facility] MFM practice. A thin dividing membrane and [...] previously determined to be monochorionic by the [facility] MFMpractice. A thin dividing membrane and single [...] These findings were communicated to Dr. Schilling. Sara Eng MD IMG OB US PROCEDURES Final R esult * eGFR (09/15/2024 6:17 AM WIRE STRAIGHTENING MACHINE OPERATOR) eGFR >90 >=60 mL/min/1. 73 m2 Comment: [...] last reviewed 2021. Blood 09/15/2024 6:17 AM WIRE STRAIGHTENING MACHINE OPERATOR 09/15/2024 6:31 AM WIRE STRAIGHTENING MACHINE OPERATOR us Anastasia Amaro MD LAB BLOOD ORDERABLES Final Result [facility] Department [place] [address] * (ABNORMAL) Comprehensive metabolic panel (09/15/2024 6:17 AM WIRE STRAIGHTENING MACHINE OPERATOR) Pathologist [facility] Sodium 139 135 - 145 mmol/L Potassium, pl 3.5 3.3 - 4.9 mmol/L [facility]D Chloride 106 97 - 110 mmol/L [facility] CO2 21(L) 22 - 32 mmol/L [facility] Anion gap 12 2 - 15 mmol/L [facility] BUN 8 6 - 25 mg/dL [facility] Creatinine 0.66 0.60 - 1.10 mg/dL [facility] Glucose 106 70 - 199 mg/dL [facility] Comment: Interpretive Data Fasting glucose >/= 126 [...] 2022. Calcium 9.0 8.5 - 10.3 mg/dL [facility] Bilirubin, total <0.2 0.1 - 1.2 mg/dL [facility] Protein, pl 6.4(L) 6.5 - 8.5 g/dL [facility] Albumin 3.0(L) 3.5 - 5.0 g/dL [facility] Alk phos 124 40 - 130 Units/L [facility] ALT 19 7 - 45 Units/L [facility] AST 20 10 - 45 Units/L [facility] Blood 09/15/2024 6:17 AM WIRE STRAIGHTENING MACHINE OPERATOR 09/15/2024 6:31 AM WIRE STRAIGHTENING MACHINE OPERATOR us Anastasia Amaro MD LAB BLOOD ORDERABLES Final Result [facility] Department [place] [address] * (ABNORMAL) CBC without differential (09/15/2024 6:17 AM WIRE STRAIGHTENING MACHINE OPERATOR) WBC 10.1(H) 3.8 - 9.9 K/cumm Hgb 11.7(L) 11.9 - 15.5 g/dL [facility] Hct 34.6(L) 35.6 - 45.5 % [facility] Plt 253 150 - 400 K/cumm [facility] MPV 11.2 9.1 - 12.3 fL [facility] RBC 3.94 3.90 - 5.20 M/cumm [facility] MCV 87.8 81.3 - 96.4 fL [facility] MCH 29.7 27.1 - 33.3 pg [facility] MCHC 33.8 32.3 - 35.7 g/dL [facility] RDW CV 13.8 11.1 - 14.9 % [facility] RDW SD 44.1 35.7 - 48.1 fL [facility] NRBC abs 0.00 0.00 - 0.01 K/cumm [facility] Blood 09/15/2024 6:17 AM WIRE STRAIGHTENING MACHINE OPERATOR 09/15/2024 6:31 AM WIRE STRAIGHTENING MACHINE OPERATOR us Anastasia Amaro MD LAB BLOOD ORDERABLES Final Result Performing Organization Address City/[facility] Co de Phone Number [facility] [place] [address] * Type and screen (09/15/2024 6:17 AM WIRE STRAIGHTENING MACHINE OPERATOR) Abiodun, indirect Negative Comment:Patient has previous antibody history ABO Rh O Negative [facility] Blood 09/15/2024 6:17 AM WIRE STRAIGHTENING MACHINE OPERATOR 09/15/2024 6:30 AM WIRE STRAIGHTENING MACHINE OPERATOR Narrative [facility] - 09/15/2024 7:57 AM WIRE STRAIGHTENING MACHINE OPERATOR Has the patient had Daratumumab or Isatuximab in the past 6 months?->Unknown us Anastasia Amaro MD LAB BLOOD BANK TEST ORDERA BLES Final Result [facility] [place] [address] * nonstress test (09/13/2024 5:10 PM WIRE STRAIGHTENING MACHINE OPERATOR) Narrative Sandra Christy MD - 09/13/2024 5:10 PM WIRE STRAIGHTENING MACHINE OPERATOR Anastasia Plaza MD ? 09/13/2024 ??5:21 PM [...] nal Result * eGFR (09/12/2024 6:35 AM WIRE STRAIGHTENING MACHINE OPERATOR) eGFR >90 >=60 mL/min/1. 73 m2 Comment: [...] last reviewed 2021. Blood 09/12/2024 6:35 AM WIRE STRAIGHTENING MACHINE OPERATOR 09/12/2024 6:51 AM WIRE STRAIGHTENING MACHINE OPERATOR us Anastasia Amaro MD LAB BLOOD ORDERABLES Final Result [facility] Department [place] [address] * (ABNORMAL) Comprehensive metabolic panel (09/12/2024 6:35 AM WIRE STRAIGHTENING MACHINE OPERATOR) Sodium 139 135 - 145 mmol/L Potassium, pl 3.8 3.3 - 4.9 mmol/L [facility] Chloride 107 97 - 110 mmol/L [facility] CO2 22 22 - 32 mmol/L [facility] Anion gap 10 2 - 15 mmol/L [facility] BUN 6 6 - 25 mg/dL [facility] Creatinine 0.64 0.60 - 1.10 mg/dL [facility] Glucose 69(L) 70 - 199 mg/dL [facility] Comment: Interpretive Data Fasting glucose >/= 126 [...] 2022. Calcium 8.8 8.5 - 10.3 mg/dL [facility] Bilirubin, total <0.2 0.1 - 1.2 mg/dL [facility] Protein, pl 6.4(L) 6.5 - 8.5 g/dL [facility] Albumin 3.1(L) 3.5 - 5.0 g/dL [facility] Alk phos 122 40 - 130 Units/L [facility] ALT 22 7 - 45 Units/L [facility] AST 23 10 - 45 Units/L [facility] Blood 09/12/2024 6:35 AM WIRE STRAIGHTENING MACHINE OPERATOR 09/12/2024 6:51 AM WIRE STRAIGHTENING MACHINE OPERATOR Anastasia Amaro MD LAB BLOOD ORDERABLES Final Result Performing Organization Address [facility] Co de Phone Number [facility] Department [place] [address] * (ABNORMAL) CBC without differential (09/12/2024 6:35 AM WIRE STRAIGHTENING MACHINE OPERATOR) WBC 10.0(H) 3.8 - 9.9 K/cumm Hgb 11.8(L) 11.9 - 15.5 g/dL [facility] Hct 35.3(L) 35.6 - 45.5 % [facility] Plt 226 150 - 400 K/cumm [facility] MPV 11.2 9.1 - 12.3 fL [facility] RBC 3.97 3.90 - 5.20 M/cumm [facility] MCV 88.9 81.3 - 96.4 fL [facility] MCH 29.7 27.1 - 33.3 pg [facility] MCHC 33.4 32.3 - 35.7 g/dL [facility] RDW CV 13.8 11.1 - 14.9 % [facility] RDW SD 44.5 35.7 - 48.1 fL [facility] NRBC abs 0.02(H) 0.00 - 0.01 K/cumm [facility] Blood 09/12/2024 6:35 AM WIRE STRAIGHTENING MACHINE OPERATOR 09/12/2024 6:52 AM WIRE STRAIGHTENING MACHINE OPERATOR Anastasia Amaro MD LAB BLOOD ORDERABLES Final Result [facility] Department [place] [address] * Type and screen (09/12/2024 6:35 AM WIRE STRAIGHTENING MACHINE OPERATOR) ABO Rh O Negative Abiodun, indirect Negative [facility] Comment:Patient has previous antibody history Blood 09/12/2024 6:35 AM WIRE STRAIGHTENING MACHINE OPERATOR 09/12/2024 6:48 AM WIRE STRAIGHTENING MACHINE OPERATOR Narrative [facility]T - 09/12/2024 7:49 AM WIRE STRAIGHTENING MACHINE OPERATOR Has the patient had Daratumumab or Isatuximab in the past 6 months?->Unknown us Anastasia Amaro MD LAB BLOOD BANK TEST ORDERA BLES Final Result Performing Organization Address [facility] Phone Number BIA TODD [facility] Department [place] [address] * eGFR (09/09/2024 6:24 AM WIRE STRAIGHTENING MACHINE OPERATOR) eGFR >90 >=60 mL/min/1. 73 m2 Comment: [...] last reviewed 2021. Blood 09/09/2024 6:24 AM WIRE STRAIGHTENING MACHINE OPERATOR 09/09/2024 6:52 AM WIRE STRAIGHTENING MACHINE OPERATOR us Anastasia Amaro MD LAB BLOOD ORDERABLES Final Result BIA TODD [facility] Department [place] [address] * (ABNORMAL) Comprehensive metabolic panel (09/09/2024 6:24 AM WIRE STRAIGHTENING MACHINE OPERATOR) Sodium 141 135 - 145 mmol/L Potassium, pl 3.8 3.3 - 4.9 mmol/L [facility] Chloride 108 97 - 110 mmol/L [facility] CO2 22 22 - 32 mmol/L [facility] Anion gap 11 2 - 15 mmol/L [facility] BUN 8 6 - 25 mg/dL [facility] Creatinine 0.75 0.60 - 1.10 mg/dL [facility] Glucose 70 70 - 199 mg/dL [facility] Comment: Interpretive Data Fasting glucose >/= 126 [...] 2022. Calcium 8.9 8.5 - 10.3 mg/dL [facility] Bilirubin, total <0.2 0.1 - 1.2 mg/dL [facility] Protein, pl 6.2(L) 6.5 - 8.5 g/dL [facility] Albumin 3.2(L) 3.5 - 5.0 g/dL [facility] Alk phos 117 40 - 130 Units/L [facility] ALT 22 7 - 45 Units/L [facility] [facility] AST 23 10 - 45 Units/L [facility] Blood 09/09/2024 6:24 AM WIRE STRAIGHTENING MACHINE OPERATOR 09/09/2024 6:52 AM WIRE STRAIGHTENING MACHINE OPERATOR us Anastasia Amaro MD LAB BLOOD ORDERABLES Final Result Performing Organization Address City/[facility]/ZIP Co de Phone Number [facility] Department [place] [address] * (ABNORMAL) CBC without differential (09/09/2024 6:24 AM WIRE STRAIGHTENING MACHINE OPERATOR) Pathologist [facility] WBC 8.6 3.8 - 9.9 K/cumm Hgb 10.9(L) 11.9 - 15.5 g/dL [facility] Hct 33.1(L) 35.6 - 45.5 % [facility] Plt 239 150 - 400 K/cumm [facility] MPV 11.0 9.1 - 12.3 fL [facility] RBC 3.77(L) 3.90 - 5.20 M/cumm [facility] MCV 87.8 81.3 - 96.4 fL [facility] MCH 28.9 27.1 - 33.3 pg [facility] MCHC 32.9 32.3 - 35.7 g/dL [facility] RDW CV 13.8 11.1 - 14.9 % [facility] RDW SD 43.8 35.7 - 48.1 fL [facility] NRBC abs 0.00 0.00 - 0.01 K/cumm [facility] Blood 09/09/2024 6:24 AM WIRE STRAIGHTENING MACHINE OPERATOR 09/09/2024 6:52 AM WIRE STRAIGHTENING MACHINE OPERATOR Anastasia Amaro MD LAB BLOOD ORDERABLES Final Result [facility] Department [place] [address] * Type and screen (09/09/2024 6:24 AM WIRE STRAIGHTENING MACHINE OPERATOR) [facility] ABO Rh O Negative Abiodun, indirect Negative [facility] Comment:Patient has previous antibody history Blood 09/09/2024 6:24 AM WIRE STRAIGHTENING MACHINE OPERATOR 09/09/2024 7:19 AM WIRE STRAIGHTENING MACHINE OPERATOR Narrative [facility] - 09/09/2024 8:51 AM WIRE STRAIGHTENING MACHINE OPERATOR Has the patient had Daratumumab or Isatuximab in the past 6 months?->Unknown us Anastasia Amaro MD LAB BLOOD BANK TEST ORDERA BLES Final Result [facility] [place] [address] * US Ob Limited (09/08/2024 10:29 AM WIRE STRAIGHTENING MACHINE OPERATOR) Fetus# Fetus1 VIEWPOINT Placenta Details anterior VIEWPOINT Presentation Vertex; Maternal right- low VIEWPOINT Fetus# Fetus2 VIEWPOINT Placenta Details anterior VIEWPOINT Presentation Vertex; Maternal left- high (presenting) VIEWPOINT Anatomical Region Laterality Modality Abdomen N/A Ultrasound 09/08/2024 10:2 9 AM WIRE STRAIGHTENING MACHINE OPERATOR Impressions 09/08/2024 11:25 AM WIRE STRAIGHTENING MACHINE OPERATOR 1. Mo/di twin IUP at 32w 3d. [...] esult * nonstress test (09/06/2024 8:38 PM WIRE STRAIGHTENING MACHINE OPERATOR) Narrative Anastasia Amaro MD - 09/06/2024 8:38 PM WIRE STRAIGHTENING MACHINE OPERATOR Pauline Simms MD ? 09/06/2024 ??8:41 PM Baby A FHR Baseline: 125 Variability: moderate Accelerations: absent Decelerations: absent in last part of tracing, was initially having small variable decels in monitoring Reactive: Yes Baby B FHR Baseline: 130 Variability: moderate Accelerations: present Decelerations: absent Reactive: Yes 29 y.o. at 32w1d a/f preeclampsia with SF On monitor [id number] Contractions: absent I have reviewed NST and instructed RN to take off monitor Pauline Simms MD us Ana M Rogers MD OB GYNE ORDERABLES Fi nal Result * eGFR (09/06/2024 4:31 AM WIRE STRAIGHTENING MACHINE OPERATOR) eGFR >90 >=60 mL/min/1. 73 m2 Comment: [...] last reviewed 2021. Blood 09/06/2024 4:31 AM WIRE STRAIGHTENING MACHINE OPERATOR 09/06/2024 4:53 AM WIRE STRAIGHTENING MACHINE OPERATOR us Anastasia Amaro MD LAB BLOOD ORDERABLES Final Result [facility] Department [place] [address] * (ABNORMAL) Comprehensive metabolic panel (09/06/2024 4:31 AM WIRE STRAIGHTENING MACHINE OPERATOR) Sodium 138 135 - 145 mmol/L Potassium, pl 3.6 3.3 - 4.9 mmol/L [facility] Chloride 105 97 - 110 mmol/L [facility] CO2 24 22 - 32 mmol/L [facility] Anion gap 9 2 - 15 mmol/L [facility] BUN 7 6 - 25 mg/dL [facility] Creatinine 0.63 0.60 - 1.10 mg/dL [facility] Glucose 62(L) 70 - 199 mg/dL [facility] Comment: Interpretive Data Fasting glucose >/= 126 [...] 2022. Calcium 9.3 8.5 - 10.3 mg/dL [facility] Bilirubin, total 0.3 0.1 - 1.2 mg/dL [facility] Protein, pl 6.6 6.5 - 8.5 g/dL [facility] Albumin 3.2(L) 3.5 - 5.0 g/dL [facility] Alk phos 118 40 - 130 Units/L [facility] ALT 23 7 - 45 Units/L [facility] AST 22 10 - 45 Units/L [facility] Blood 09/06/2024 4:31 AM WIRE STRAIGHTENING MACHINE OPERATOR 09/06/2024 4:53 AM WIRE STRAIGHTENING MACHINE OPERATOR us Anastasia Amaro MD LAB BLOOD ORDERABLES Final Result [facility] Department [place] [address] * (ABNORMAL) CBC without differential (09/06/2024 4:31 AM WIRE STRAIGHTENING MACHINE OPERATOR) [facility] Signature WBC 10.3(H) 3.8 - 9.9 K/cumm Hgb 11.7(L) 11.9 - 15.5 g/dL [facility] Hct 34.5(L) 35.6 - 45.5 % [facility] Plt 249 150 - 400 K/cumm [facility] MPV 11.1 9.1 - 12.3 fL [facility] RBC 3.96 3.90 - 5.20 M/cumm [facility] MCV 87.1 81.3 - 96.4 fL [facility] MCH 29.5 27.1 - 33.3 pg [facility] MCHC 33.9 32.3 - 35.7 g/dL [facility] RDW CV 13.6 11.1 - 14.9 % [facility] RDW SD 42.7 35.7 - 48.1 fL [facility] NRBC abs 0.00 0.00 - 0.01 K/cumm [facility] Blood 09/06/2024 4:31 AM WIRE STRAIGHTENING MACHINE OPERATOR 09/06/2024 4:54 AM WIRE STRAIGHTENING MACHINE OPERATOR Anastasia Amaro MD LAB BLOOD ORDERABLES Final Result [facility] Department [place] [address] * Type and screen (09/06/2024 4:31 AM WIRE STRAIGHTENING MACHINE OPERATOR) ABO Rh O Negative Abiodun, indirect Negative [facility] Comment:Patient has previous antibody history Blood 09/06/2024 4:31 AM WIRE STRAIGHTENING MACHINE OPERATOR 09/06/2024 6:11 AM WIRE STRAIGHTENING MACHINE OPERATOR Narrative [facility] - 09/06/2024 7:16 AM WIRE STRAIGHTENING MACHINE OPERATOR Has the patient had Daratumumab or Isatuximab in the past 6 months?->Unknown us Anastasia Amaro MD LAB BLOOD BANK TEST ORDERA BLES Final Result Performing Organization Address [facility]/[place] [address] * Group B streptococcal culture Vaginal/Rectal (09/03/2024 10:29 AM WIRE STRAIGHTENING MACHINE OPERATOR) Pathologist [facility] Report Final Report: Negative Vaginal/Rectal 09/03/2024 10 :29 AM WIRE STRAIGHTENING MACHINE OPERATOR 09/03/2024 10:47 AM WIRE STRAIGHTENING MACHINE OPERATOR Narrative [facility] - 09/07/2024 11:05 AM WIRE STRAIGHTENING MACHINE OPERATOR Testing performed by [facility] Microbiology Laboratory ([phone]). us Joellen Julio MD LAB MICROBIOLOGY - GENERAL O RDERABLES Final Result Performing Organization Address [facility] Co de Phone Number [facility] [place] [address] * eGFR (09/03/2024 5:26 AM WIRE STRAIGHTENING MACHINE OPERATOR) eGFR >90 >=60 mL/min/1. 73 m2 Comment: [...] last reviewed 2021. Blood 09/03/2024 5:26 AM WIRE STRAIGHTENING MACHINE OPERATOR 09/03/2024 5:39 AM WIRE STRAIGHTENING MACHINE OPERATOR Anastasia Amaro MD LAB BLOOD ORDERABLES Final Result [facility] Department [place] [address] * (ABNORMAL) Comprehensive metabolic panel (09/03/2024 5:26 AM WIRE STRAIGHTENING MACHINE OPERATOR) Pathologist [facility] Sodium 139 135 - 145 mmol/L Potassium, pl 4.0 3.3 - 4.9 mmol/L [facility] Chloride 105 97 - 110 mmol/L [facility] CO2 20(L) 22 - 32 mmol/L [facility] Anion gap 14 2 - 15 mmol/L [facility] BUN 8 6 - 25 mg/dL [facility] Creatinine 0.55(L) 0.60 - 1.10 mg/dL [facility] Glucose 68(L) 70 - 199 mg/dL [facility] Comment: Interpretive Data Fasting glucose >/= 126 [...] 2022. Calcium 9.3 8.5 - 10.3 mg/dL [facility] Bilirubin, total 0.3 0.1 - 1.2 mg/dL [facility] Protein, pl 6.4(L) 6.5 - 8.5 g/dL [facility] Albumin 3.3(L) 3.5 - 5.0 g/dL [facility] Alk phos 111 40 - 130 Units/L [facility] ALT 22 7 - 45 Units/L [facility] AST 24 10 - 45 Units/L [facility] Blood 09/03/2024 5:26 AM WIRE STRAIGHTENING MACHINE OPERATOR 09/03/2024 5:39 AM WIRE STRAIGHTENING MACHINE OPERATOR us Anastasia Amaro MD LAB BLOOD ORDERABLES Final Result [facility] [place] [address] * (ABNORMAL) CBC without differential (09/03/2024 5:26 AM WIRE STRAIGHTENING MACHINE OPERATOR) WBC 12.1(H) 3.8 - 9.9 K/cumm Hgb 11.7(L) 11.9 - 15.5 g/dL [facility] Hct 34.0(L) 35.6 - 45.5 % [facility] Plt 273 150 - 400 K/cumm [facility] MPV 11.0 9.1 - 12.3 fL [facility] RBC 3.97 3.90 - 5.20 M/cumm [facility] MCV 85.6 81.3 - 96.4 fL [facility] MCH 29.5 27.1 - 33.3 pg [facility] MCHC 34.4 32.3 - 35.7 g/dL [facility] RDW CV 13.3 11.1 - 14.9 % [facility] RDW SD 41.7 35.7 - 48.1 fL [facility] NRBC abs 0.00 0.00 - 0.01 K/cumm [facility] Blood 09/03/2024 5:26 AM WIRE STRAIGHTENING MACHINE OPERATOR 09/03/2024 5:39 AM WIRE STRAIGHTENING MACHINE OPERATOR Anastasia Amaro MD LAB BLOOD ORDERABLES Final Result Performing Organization Address [facility] Co de Phone Number [facility] [place] [address] * Type and screen (09/03/2024 5:26 AM WIRE STRAIGHTENING MACHINE OPERATOR) [facility] Abiodun, indirect Negative Comment:Patient has previous antibody history ABO Rh O Negative [facility] Blood 09/03/2024 5:26 AM WIRE STRAIGHTENING MACHINE OPERATOR 09/03/2024 5:32 AM WIRE STRAIGHTENING MACHINE OPERATOR Narrative [facility] - 09/03/2024 6:27 AM WIRE STRAIGHTENING MACHINE OPERATOR Has the patient had Daratumumab or Isatuximab in the past 6 months?->Unknown us Anastasia Amaro MD LAB BLOOD BANK TEST ORDERA BLES Final Result Performing Organization Address [facility] de Phone Number [facility] [place] [address] * ECG 12 lead (09/02/2024 4:33 PM WIRE STRAIGHTENING MACHINE OPERATOR) Pathologist [facility] Ventricular Rate EKG/Min 110 BPM [facility] Atrial Rate 110 BPM [facility] WY-Interval (MSEC) 130 ms [facility] QRS-Interval (MSEC) 82 ms [facility] QT-Interval (MSEC) 340 ms [facility] QTc 460 ms [facility] P Tiller 55 degrees [facility] R Tiller 22 degrees [facility] T Tiller 30 degrees [facility] Diagnosis Sinus tachycardia Otherwise normal ECG No previous ECGs available Confirmed by SAMANTA KAPLAN M.D ([id number]) on 09/06/2024 2:44:26 PM [facility] 09/02/2024 4:33 PM WIRE STRAIGHTENING MACHINE OPERATOR 09/06/2024 2:44 PM WIRE STRAIGHTENING MACHINE OPERATOR us Joellen Julio MD ECG ORDERABLES Final Result Performing Organization Address City/[facility]/ZIP Co de Phone Number [facility] * eGFR (08/31/2024 6:20 AM WIRE STRAIGHTENING MACHINE OPERATOR) eGFR >90 >=60 mL/min/1. 73 m2 Comment: [...] last reviewed 2021. Blood 08/31/2024 6:20 AM WIRE STRAIGHTENING MACHINE OPERATOR 08/31/2024 7:25 AM WIRE STRAIGHTENING MACHINE OPERATOR us Anastasia Amaro MD LAB BLOOD ORDERABLES Final Result Performing Organization Address City/[facility]/ZIP Co de Phone Number [facility] [place] [address] * (ABNORMAL) Comprehensive metabolic panel (08/31/2024 6:20 AM WIRE STRAIGHTENING MACHINE OPERATOR) Sodium 137 135 - 145 mmol/L Potassium, pl 3.7 3.3 - 4.9 mmol/L [facility] Chloride 103 97 - 110 mmol/L [facility] CO2 22 22 - 32 mmol/L [facility] Anion gap 12 2 - 15 mmol/L [facility] BUN 6 6 - 25 mg/dL [facility] Creatinine 0.56(L) 0.60 - 1.10 mg/dL [facility] Glucose 70 70 - 199 mg/dL [facility] Comment: Interpretive Data Fasting glucose >/= 126 [...] 2022. Calcium 9.5 8.5 - 10.3 mg/dL [facility] Bilirubin, total 0.2 0.1 - 1.2 mg/dL [facility] Protein, pl 6.4(L) 6.5 - 8.5 g/dL [facility] Albumin 3.2(L) 3.5 - 5.0 g/dL [facility] Alk phos 103 40 - 130 Units/L [facility] ALT 28 7 - 45 Units/L [facility] AST 25 10 - 45 Units/L [facility] Blood 08/31/2024 6:20 AM WIRE STRAIGHTENING MACHINE OPERATOR 08/31/2024 7:25 AM WIRE STRAIGHTENING MACHINE OPERATOR us Anastasia Amaro MD LAB BLOOD ORDERABLES Final Result [facility] [place] [address] * (ABNORMAL) CBC without differential (08/31/2024 6:20 AM WIRE STRAIGHTENING MACHINE OPERATOR) WBC 10.5(H) 3.8 - 9.9 K/cumm Hgb 11.5(L) 11.9 - 15.5 g/dL [facility] Hct 34.1(L) 35.6 - 45.5 % [facility] Plt 282 150 - 400 K/cumm [facility] MPV 10.9 9.1 - 12.3 fL [facility] RBC 3.93 3.90 - 5.20 M/cumm [facility] MCV 86.8 81.3 - 96.4 fL [facility] MCH 29.3 27.1 - 33.3 pg [facility] MCHC 33.7 32.3 - 35.7 g/dL [facility] RDW CV 13.7 11.1 - 14.9 % [facility] RDW SD 42.6 35.7 - 48.1 fL [facility] NRBC abs 0.00 0.00 - 0.01 K/cumm [facility] Blood 08/31/2024 6:20 AM WIRE STRAIGHTENING MACHINE OPERATOR 08/31/2024 7:25 AM WIRE STRAIGHTENING MACHINE OPERATOR Anastasia Amaro MD LAB BLOOD ORDERABLES Final Result Performing Organization Address City/[facility] de Phone Number [facility] [place] [address] * Type and screen (08/31/2024 6:20 AM WIRE STRAIGHTENING MACHINE OPERATOR) Pathologist [facility] ABO Rh O Negative Abiodun, indirect Negative [facility] Comment:Patient has previous antibody history Blood 08/31/2024 6:20 AM WIRE STRAIGHTENING MACHINE OPERATOR 08/31/2024 7:41 AM WIRE STRAIGHTENING MACHINE OPERATOR Narrative [facility] - 08/31/2024 8:26 AM WIRE STRAIGHTENING MACHINE OPERATOR Has the patient had Daratumumab or Isatuximab in the past 6 months?->Unknown Anastasia Amaro MD LAB BLOOD BANK TEST ORDERA BLES Final Result [facility] [place] [address] * nonstress test (08/29/2024 2:32 PM WIRE STRAIGHTENING MACHINE OPERATOR) Narrative Nini Cortez MD - 08/29/2024 2:32 PM WIRE STRAIGHTENING MACHINE OPERATOR Maureen Calix MD ? 08/29/2024 ??3:38 PM nonstress test Date/Time: 08/29/2024 2:32 PM Performed by: Maureen Calix MD Authorized by: Ana M Rogers MD ?? us Ana M Rogers MD OB GYNE ORDERABLES Fi nal Result * nonstress test (08/28/2024 7:47 PM WIRE STRAIGHTENING MACHINE OPERATOR) Narrative Nini Cortez MD - 08/28/2024 7:47 PM WIRE STRAIGHTENING MACHINE OPERATOR Francisca Yun MD ? 08/28/2024 ??7:48 PM A FHR Baseline: 120 Variability: moderate Reactive: Yes Contractions: absent B FHR Baseline: 130 Variability: moderate Reactive: Yes Contractions: absent Comments: No decels x2 I have reviewed NST and instructed RN to take off monitor Francisca Yun MD us Ana M Rogers MD OB GYNE ORDERABLES Fi nal Result * eGFR (08/28/2024 6:00 AM WIRE STRAIGHTENING MACHINE OPERATOR) Pathologist [facility] eGFR >90 >=60 mL/min/1. 73 m2 [...] last reviewed 2021. Blood 08/28/2024 6:00 AM WIRE STRAIGHTENING MACHINE OPERATOR 08/28/2024 6:13 AM WIRE STRAIGHTENING MACHINE OPERATOR Anastasia Amaro MD LAB BLOOD ORDERABLES Final Result Performing Organization Address City/State/[facility] Co de Phone Number [facility] [place] [address] * (ABNORMAL) Comprehensive metabolic panel (08/28/2024 6:00 AM WIRE STRAIGHTENING MACHINE OPERATOR) Sodium 137 135 - 145 mmol/L Potassium, pl 3.6 3.3 - 4.9 mmol/L [facility] Chloride 105 97 - 110 mmol/L [facility] CO2 21(L) 22 - 32 mmol/L [facility] Anion gap 11 2 - 15 mmol/L [facility] BUN 8 6 - 25 mg/dL [facility] Creatinine 0.52(L) 0.60 - 1.10 mg/dL [facility] Glucose 74 70 - 199 mg/dL [facility] Comment: Interpretive Data Fasting glucose >/= 126 [...] 2022. Calcium 9.3 8.5 - 10.3 mg/dL [facility] Bilirubin, total 0.2 0.1 - 1.2 mg/dL [facility] Protein, pl 6.2(L) 6.5 - 8.5 g/dL [facility] Albumin 3.2(L) 3.5 - 5.0 g/dL [facility] Alk phos 96 40 - 130 Units/L [facility] ALT 25 7 - 45 Units/L [facility] AST 22 10 - 45 Units/L [facility] Blood 08/28/2024 6:00 AM WIRE STRAIGHTENING MACHINE OPERATOR 08/28/2024 6:13 AM WIRE STRAIGHTENING MACHINE OPERATOR Anastasia Amaro MD LAB BLOOD ORDERABLES Final Result [facility] [place] [address] * (ABNORMAL) CBC without differential (08/28/2024 6:00 AM WIRE STRAIGHTENING MACHINE OPERATOR) WBC 10.3(H) 3.8 - 9.9 K/cumm Hgb 11.2(L) 11.9 - 15.5 g/dL [facility] Hct 33.0(L) 35.6 - 45.5 % [facility] Plt 289 150 - 400 K/cumm [facility] MPV 10.7 9.1 - 12.3 fL [facility] RBC 3.78(L) 3.90 - 5.20 M/cumm [facility] MCV 87.3 81.3 - 96.4 fL [facility] MCH 29.6 27.1 - 33.3 pg [facility] MCHC 33.9 32.3 - 35.7 g/dL [facility] RDW CV 13.7 11.1 - 14.9 % [facility] RDW SD 43.6 35.7 - 48.1 fL [facility] NRBC abs 0.00 0.00 - 0.01 K/cumm [facility] Blood 08/28/2024 6:00 AM WIRE STRAIGHTENING MACHINE OPERATOR 08/28/2024 6:20 AM WIRE STRAIGHTENING MACHINE OPERATOR Anastasia Amaro MD LAB BLOOD ORDERABLES Final Result Performing Organization Address [facility] de Phone Number [facility] [place] [address] * Type and screen (08/28/2024 6:00 AM WIRE STRAIGHTENING MACHINE OPERATOR) ABO Rh O Negative Comment:Patient has previous antibody history Abiodun, indirect Negative [facility] Blood 08/28/2024 6:00 AM WIRE STRAIGHTENING MACHINE OPERATOR 08/28/2024 6:54 AM WIRE STRAIGHTENING MACHINE OPERATOR Narrative [facility] - 08/28/2024 7:53 AM WIRE STRAIGHTENING MACHINE OPERATOR Has the patient had Daratumumab or Isatuximab in the past 6 months?->Unknown Anastasia Amaro MD LAB BLOOD BANK TEST ORDERA BLES Final Result Performing Organization Address [facility] de Phone Number [facility] [place] [address] * eGFR (08/25/2024 6:19 AM WIRE STRAIGHTENING MACHINE OPERATOR) eGFR >90 >=60 mL/min/1. 73 m2 Comment: [...] last reviewed 2021. Blood 08/25/2024 6:19 AM WIRE STRAIGHTENING MACHINE OPERATOR 08/25/2024 6:33 AM WIRE STRAIGHTENING MACHINE OPERATOR us Anastasia Amaro MD LAB BLOOD ORDERABLES Final Result [facility] Department [place] [address] * (ABNORMAL) Comprehensive metabolic panel (08/25/2024 6:19 AM WIRE STRAIGHTENING MACHINE OPERATOR) [facility] Sodium 139 135 - 145 mmol/L Potassium, pl 3.5 3.3 - 4.9 mmol/L [facility] Chloride 105 97 - 110 mmol/L [facility] CO2 22 22 - 32 mmol/L [facility] Anion gap 12 2 - 15 mmol/L [facility] BUN 6 6 - 25 mg/dL [facility] Creatinine 0.53(L) 0.60 - 1.10 mg/dL [facility] Glucose 70 70 - 199 mg/dL [facility] Comment: Interpretive Data Fasting glucose >/= 126 [...] 2022. Calcium 9.2 8.5 - 10.3 mg/dL [facility] Bilirubin, total 0.2 0.1 - 1.2 mg/dL [facility] Protein, pl 6.4(L) 6.5 - 8.5 g/dL [facility] Albumin 3.2(L) 3.5 - 5.0 g/dL [facility] Alk phos 92 40 - 130 Units/L [facility] ALT 22 7 - 45 Units/L [facility] AST 22 10 - 45 Units/L [facility] Blood 08/25/2024 6:19 AM WIRE STRAIGHTENING MACHINE OPERATOR 08/25/2024 6:33 AM WIRE STRAIGHTENING MACHINE OPERATOR us Anastasia Amaro MD LAB BLOOD ORDERABLES Final Result [facility] [place] [address] * (ABNORMAL) CBC without differential (08/25/2024 6:19 AM WIRE STRAIGHTENING MACHINE OPERATOR) [facility] WBC 10.5(H) 3.8 - 9.9 K/cumm Hgb 11.4(L) 11.9 - 15.5 g/dL [facility] Hct 33.4(L) 35.6 - 45.5 % [facility] Plt 299 150 - 400 K/cumm [facility] MPV 10.6 9.1 - 12.3 fL [facility] RBC 3.90 3.90 - 5.20 M/cumm [facility] MCV 85.6 81.3 - 96.4 fL [facility] MCH 29.2 27.1 - 33.3 pg [facility] MCHC 34.1 32.3 - 35.7 g/dL [facility] RDW CV 13.4 11.1 - 14.9 % [facility] RDW SD 41.7 35.7 - 48.1 fL [facility] NRBC abs 0.00 0.00 - 0.01 K/cumm [facility] Blood 08/25/2024 6:19 AM WIRE STRAIGHTENING MACHINE OPERATOR 08/25/2024 6:32 AM WIRE STRAIGHTENING MACHINE OPERATOR us Anastasia Amaro MD LAB BLOOD ORDERABLES Final Result Performing Organization Address City/[facility] Co de Phone Number [facility] [place] [place] [address] * Type and screen (08/25/2024 6:19 AM WIRE STRAIGHTENING MACHINE OPERATOR) Abiodun, indirect Negative Comment:Patient has previous antibody history ABO Rh O Negative [facility] Blood 08/25/2024 6:19 AM WIRE STRAIGHTENING MACHINE OPERATOR 08/25/2024 7:06 AM WIRE STRAIGHTENING MACHINE OPERATOR Narrative [facility] - 08/25/2024 8:01 AM WIRE STRAIGHTENING MACHINE OPERATOR Has the patient had Daratumumab or Isatuximab in the past 6 months?->Unknown us Anastasia Amaro MD LAB BLOOD BANK TEST ORDERA BLES Final Result Performing Organization Address [facility] Co de Phone Number [facility] [place] [address] * US Ob Follow Up (08/24/2024 9:37 AM WIRE STRAIGHTENING MACHINE OPERATOR) Pathologist [facility] Fetus# Fetus1 VIEWPOINT Estimated Weight 1,348 g&grams VIEWPOINT Placenta Details anterior VIEWPOINT Presentation Vertex; Maternal right- low VIEWPOINT Fetus# Fetus2 VIEWPOINT Estimated Weight 1,784 g&grams VIEWPOINT Placenta Details anterior VIEWPOINT Presentation Vertex; Maternal left- high (presenting) VIEWPOINT Anatomical Region Laterality Modality Abdomen N/A Ultrasound 08/24/2024 9:37 AM WIRE STRAIGHTENING MACHINE OPERATOR Impressions 08/24/2024 2:06 PM WIRE STRAIGHTENING MACHINE OPERATOR 1. Presumed Mo/Di twin IUP at 30w [...] Edite d * eGFR (08/22/2024 6:02 AM WIRE STRAIGHTENING MACHINE OPERATOR) eGFR >90 >=60 mL/min/1. 73 m2 Comment: [...] last reviewed 2021. Blood 08/22/2024 6:02 AM WIRE STRAIGHTENING MACHINE OPERATOR 08/22/2024 6:18 AM WIRE STRAIGHTENING MACHINE OPERATOR Anastasia Amaro MD LAB BLOOD ORDERABLES Final Result [facility] [place] [address] * (ABNORMAL) Comprehensive metabolic panel (08/22/2024 6:02 AM WIRE STRAIGHTENING MACHINE OPERATOR) Sodium 138 135 - 145 mmol/L Potassium, pl 3.7 3.3 - 4.9 mmol/L [facility] Chloride 104 97 - 110 mmol/L [facility] CO2 23 22 - 32 mmol/L [facility] Anion gap 11 2 - 15 mmol/L [facility] BUN 7 6 - 25 mg/dL [facility] Creatinine 0.53(L) 0.60 - 1.10 mg/dL [facility] Glucose 72 70 - 199 mg/dL [facility] Comment: Interpretive Data Fasting glucose >/= 126 [...] 2022. Calcium 9.3 8.5 - 10.3 mg/dL [facility] Bilirubin, total 0.2 0.1 - 1.2 mg/dL [facility] Protein, pl 6.6 6.5 - 8.5 g/dL [facility] Albumin 3.2(L) 3.5 - 5.0 g/dL [facility] Alk phos 90 40 - 130 Units/L [facility] ALT 19 7 - 45 Units/L [facility] AST 18 10 - 45 Units/L [facility] Blood 08/22/2024 6:02 AM WIRE STRAIGHTENING MACHINE OPERATOR 08/22/2024 6:18 AM WIRE STRAIGHTENING MACHINE OPERATOR Anastasia mAaro MD LAB BLOOD ORDERABLES Final Result [facility] [place] [address] * (ABNORMAL) CBC without differential (08/22/2024 6:02 AM WIRE STRAIGHTENING MACHINE OPERATOR) WBC 12.2(H) 3.8 - 9.9 K/cumm Hgb 11.8(L) 11.9 - 15.5 g/dL [facility] Hct 34.4(L) 35.6 - 45.5 % [facility] Plt 277 150 - 400 K/cumm [facility] MPV 10.4 9.1 - 12.3 fL [facility] RBC 4.02 3.90 - 5.20 M/cumm [facility] MCV 85.6 81.3 - 96.4 fL [facility] MCH 29.4 27.1 - 33.3 pg [facility] MCHC 34.3 32.3 - 35.7 g/dL [facility] RDW CV 13.6 11.1 - 14.9 % [facility] RDW SD 42.4 35.7 - 48.1 fL [facility] NRBC abs 0.00 0.00 - 0.01 K/cumm [facility] Blood 08/22/2024 6:02 AM WIRE STRAIGHTENING MACHINE OPERATOR 08/22/2024 6:18 AM WIRE STRAIGHTENING MACHINE OPERATOR Anastasia Amaro MD LAB BLOOD ORDERABLES Final Result Performing Organization Address [facility] de Phone Number [facility] [place] [place] [address] * Type and screen (08/22/2024 6:02 AM WIRE STRAIGHTENING MACHINE OPERATOR) Abiodun, indirect Negative Comment:Patient has previous antibody history ABO Rh O Negative [facility] Blood 08/22/2024 6:02 AM WIRE STRAIGHTENING MACHINE OPERATOR 08/22/2024 6:24 AM WIRE STRAIGHTENING MACHINE OPERATOR Narrative [facility] - 08/22/2024 7:25 AM WIRE STRAIGHTENING MACHINE OPERATOR Has the patient had Daratumumab or Isatuximab in the past 6 months?->Unknown Anastasia Amaro MD LAB BLOOD BANK TEST ORDERA BLES Final Result Performing Organization Address [facility] de Phone Number [facility] [place] [place] [address] * eGFR (08/19/2024 6:25 AM WIRE STRAIGHTENING MACHINE OPERATOR) eGFR >90 >=60 mL/min/1. 73 m2 Comment: [...] last reviewed 2021. Blood 08/19/2024 6:25 AM WIRE STRAIGHTENING MACHINE OPERATOR 08/19/2024 7:23 AM WIRE STRAIGHTENING MACHINE OPERATOR us Anastasia Amaro MD LAB BLOOD ORDERABLES Final Result [facility] [place] [address] * (ABNORMAL) Comprehensive metabolic panel (08/19/2024 6:25 AM WIRE STRAIGHTENING MACHINE OPERATOR) Sodium 138 135 - 145 mmol/L Potassium, pl 3.7 3.3 - 4.9 mmol/L [facility] Chloride 105 97 - 110 mmol/L [facility] CO2 23 22 - 32 mmol/L [facility] Anion gap 10 2 - 15 mmol/L [facility] BUN 7 6 - 25 mg/dL [facility] Creatinine 0.54(L) 0.60 - 1.10 mg/dL [facility] Glucose 68(L) 70 - 199 mg/dL [facility] Comment: Interpretive Data Fasting glucose >/= 126 [...] 2022. Calcium 9.3 8.5 - 10.3 mg/dL [facility] Bilirubin, total 0.2 0.1 - 1.2 mg/dL [facility] Protein, pl 6.3(L) 6.5 - 8.5 g/dL [facility] Albumin 3.0(L) 3.5 - 5.0 g/dL [facility] Alk phos 88 40 - 130 Units/L [facility] ALT 13 7 - 45 Units/L [facility] AST 18 10 - 45 Units/L [facility] Blood 08/19/2024 6:25 AM WIRE STRAIGHTENING MACHINE OPERATOR 08/19/2024 7:23 AM WIRE STRAIGHTENING MACHINE OPERATOR us Anastasia Amaro MD LAB BLOOD ORDERABLES Final Result [facility] Department [place] [address] * (ABNORMAL) CBC without differential (08/19/2024 6:25 AM WIRE STRAIGHTENING MACHINE OPERATOR) WBC 11.2(H) 3.8 - 9.9 K/cumm Hgb 11.3(L) 11.9 - 15.5 g/dL [facility] Hct 33.9(L) 35.6 - 45.5 % [facility] Plt 249 150 - 400 K/cumm [facility] MPV 10.6 9.1 - 12.3 fL [facility] RBC 3.89(L) 3.90 - 5.20 M/cumm [facility] MCV 87.1 81.3 - 96.4 fL [facility] MCH 29.0 27.1 - 33.3 pg [facility] MCHC 33.3 32.3 - 35.7 g/dL [facility] RDW CV 13.4 11.1 - 14.9 % [facility] RDW SD 42.5 35.7 - 48.1 fL [facility] NRBC abs 0.00 0.00 - 0.01 K/cumm [facility] Blood 08/19/2024 6:25 AM WIRE STRAIGHTENING MACHINE OPERATOR 08/19/2024 7:23 AM WIRE STRAIGHTENING MACHINE OPERATOR Anastasia Amaro MD LAB BLOOD ORDERABLES Final Result Performing Organization Address [facility] Co de Phone Number [facility] Department [place] [address] * Type and screen (08/19/2024 6:25 AM WIRE STRAIGHTENING MACHINE OPERATOR) Abiodun, indirect Negative ABO Rh O Negative [facility] Comment:Patient has previous antibody history Blood 08/19/2024 6:25 AM WIRE STRAIGHTENING MACHINE OPERATOR 08/19/2024 7:31 AM WIRE STRAIGHTENING MACHINE OPERATOR Narrative [facility] - 08/19/2024 8:22 AM WIRE STRAIGHTENING MACHINE OPERATOR Has the patient had Daratumumab or Isatuximab in the past 6 months?->Unknown Anastasia Amaro MD LAB BLOOD BANK TEST ORDERA BLES Final Result Performing Organization Address [facility] de Phone Number [facility] Department [place] [address] * [place] Ob Limited (08/16/2024 8:35 AM WIRE STRAIGHTENING MACHINE OPERATOR) Fetus# Fetus1 VIEWPOINT Placenta Details anterior VIEWPOINT Presentation Transverse, maternal right-low VIEWPOINT Fetus# Fetus2 VIEWPOINT Placenta Details anterior VIEWPOINT Presentation Vertex; Maternal left- high VIEWPOINT Anatomical Region Laterality Modality Abdomen N/A Ultrasound 08/16/2024 8:36 AM WIRE STRAIGHTENING MACHINE OPERATOR Impressions 08/16/2024 2:23 PM WIRE STRAIGHTENING MACHINE OPERATOR Diamniotic (presumed MCDA) TIUP at 29w1d who is admitted for preE with severe features who presents for ??TTTS screen.Chorionicity was not fully assessed but was previously determined to be monochorionic by the [facility] MFM practice. Anatomic surveys were also completed [...] previously determined to be monochorionic by the [facility] MFMpractice. Anatomic surveys were also completed there. [...] Result * Antibody identification (08/16/2024 7:34 AM WIRE STRAIGHTENING MACHINE OPERATOR) Pathologist [facility] Antibody ID 1 Passive Anti-D Blood 08/16/2024 7:34 AM WIRE STRAIGHTENING MACHINE OPERATOR 08/16/2024 7:34 AM WIRE STRAIGHTENING MACHINE OPERATOR us Anastasia Amaro MD LAB BLOOD BANK TEST ORDERA BLES Final Result [facility] Department [place] [address] * eGFR (08/16/2024 6:15 AM WIRE STRAIGHTENING MACHINE OPERATOR) eGFR >90 >=60 mL/min/1. 73 m2 Comment: [...] last reviewed 2021. Blood 08/16/2024 6:15 AM WIRE STRAIGHTENING MACHINE OPERATOR 08/16/2024 6:29 AM WIRE STRAIGHTENING MACHINE OPERATOR us Anastasia Amaro MD LAB BLOOD ORDERABLES Final Result Performing Organization Address City/State/[facility] Co de Phone Number [facility] [place] [address] * (ABNORMAL) Comprehensive metabolic panel (08/16/2024 6:15 AM WIRE STRAIGHTENING MACHINE OPERATOR) Sodium 139 135 - 145 mmol/L Potassium, pl 3.4 3.3 - 4.9 mmol/L [facility] Chloride 105 97 - 110 mmol/L [facility] CO2 23 22 - 32 mmol/L [facility] Anion gap 11 2 - 15 mmol/L [facility] BUN 8 6 - 25 mg/dL [facility] Creatinine 0.51(L) 0.60 - 1.10 mg/dL [facility] Glucose 72 70 - 199 mg/dL [facility] Comment: Interpretive Data Fasting glucose >/= 126 [...] 2022. Calcium 9.2 8.5 - 10.3 mg/dL [facility] Bilirubin, total 0.2 0.1 - 1.2 mg/dL [facility] Protein, pl 6.4(L) 6.5 - 8.5 g/dL [facility] Albumin 3.2(L) 3.5 - 5.0 g/dL [facility] Alk phos 86 40 - 130 Units/L [facility] ALT 16 7 - 45 Units/L [facility] AST 16 10 - 45 Units/L [facility] Blood 08/16/2024 6:15 AM WIRE STRAIGHTENING MACHINE OPERATOR 08/16/2024 6:29 AM WIRE STRAIGHTENING MACHINE OPERATOR us Anastasia Amaro MD LAB BLOOD ORDERABLES Final Result [facility] [place] [address] * (ABNORMAL) CBC without differential (08/16/2024 6:15 AM WIRE STRAIGHTENING MACHINE OPERATOR) Pathologist [facility] WBC 10.9(H) 3.8 - 9.9 K/cumm Hgb 11.6(L) 11.9 - 15.5 g/dL [facility] Hct 34.0(L) 35.6 - 45.5 % [facility] Plt 257 150 - 400 K/cumm [facility] MPV 10.4 9.1 - 12.3 fL [facility] RBC 3.95 3.90 - 5.20 M/cumm [facility] MCV 86.1 81.3 - 96.4 fL [facility] MCH 29.4 27.1 - 33.3 pg [facility] MCHC 34.1 32.3 - 35.7 g/dL [facility] RDW CV 13.3 11.1 - 14.9 % [facility] RDW SD 41.5 35.7 - 48.1 fL [facility] NRBC abs 0.00 0.00 - 0.01 K/cumm [facility] Blood 08/16/2024 6:15 AM WIRE STRAIGHTENING MACHINE OPERATOR 08/16/2024 6:30 AM WIRE STRAIGHTENING MACHINE OPERATOR Anastasia Amaro MD LAB BLOOD ORDERABLES Final Result Performing Organization Address City/[facility] Co de Phone Number [facility] [place] [address] * (ABNORMAL) Type and screen (08/16/2024 6:15 AM WIRE STRAIGHTENING MACHINE OPERATOR) Abiodun, indirect Positive(A) ABO Rh O Negative [facility] Blood 08/16/2024 6:15 AM WIRE STRAIGHTENING MACHINE OPERATOR 08/16/2024 6:25 AM WIRE STRAIGHTENING MACHINE OPERATOR Narrative [facility] - 08/16/2024 7:34 AM WIRE STRAIGHTENING MACHINE OPERATOR Has the patient had Daratumumab or Isatuximab in the past 6 months?->Unknown Anastasia Amaro MD LAB BLOOD BANK TEST ORDERA BLES Final Result [facility] [place] [address] * Thyroid Function [place] (08/16/2024 6:15 AM WIRE STRAIGHTENING MACHINE OPERATOR) TSH 3.83 0.30 - 4.20 mcIUnit/mL Blood 08/16/2024 6:15 AM WIRE STRAIGHTENING MACHINE OPERATOR 08/16/2024 6:29 AM WIRE STRAIGHTENING MACHINE OPERATOR Anastasia Amaro MD LAB BLOOD ORDERABLES Final Result [facility] Department [place] [address] * POCT glucose (08/14/2024 3:06 PM WIRE STRAIGHTENING MACHINE OPERATOR) [facility] Glucose, POC 103 70 - 199 mg/dL Comment:Post Meal Glucose comment 1 Post Meal [facility] Blood 08/14/2024 3:06 PM WIRE STRAIGHTENING MACHINE OPERATOR 08/14/2024 3:06 PM WIRE STRAIGHTENING MACHINE OPERATOR us Anastasia Amaro MD LAB POCT ORDERABLES - JELENA CE Final Result Performing Organization Address [facility] Co de Phone Number [facility] [place] [address] * ECG 12 lead (08/13/2024 9:02 AM WIRE STRAIGHTENING MACHINE OPERATOR) [facility] Ventricular Rate EKG/Min 122 BPM [facility] Atrial Rate 122 BPM [facility] WY-Interval (MSEC) 132 ms [facility] QRS-Interval (MSEC) 80 ms [facility] QT-Interval (MSEC) 324 ms [facility] QTc 461 ms [facility] P Tiller 49 degrees [facility] R Tiller 18 degrees [facility] T Tiller 29 degrees [facility] Diagnosis Sinus tachycardia Otherwise normal ECG When compared with ECG of 04-AUG-2024 17:45, No significant change was found Confirmed by SAMANTA KAPLAN M.D ([id number]) on 08/15/2024 12:21:02 PM [facility] 08/13/2024 9:02 AM WIRE STRAIGHTENING MACHINE OPERATOR 08/15/2024 12:21 PM WIRE STRAIGHTENING MACHINE OPERATOR us Anastasia Amaro MD ECG ORDERABLES Final Resu lt Performing Organization Address City/[facility]/ZIP Co de Phone Number [facility] * Antibody identification (08/13/2024 7:42 AM WIRE STRAIGHTENING MACHINE OPERATOR) [facility] Antibody ID 1 Passive Anti-D Blood 08/13/2024 7:42 AM WIRE STRAIGHTENING MACHINE OPERATOR 08/13/2024 7:42 AM WIRE STRAIGHTENING MACHINE OPERATOR us Anastasia Amaro MD LAB BLOOD BANK TEST ORDERA BLES Final Result Performing Organization Address [facility] Co de Phone Number [facility] [place] [address] * eGFR (08/13/2024 5:44 AM WIRE STRAIGHTENING MACHINE OPERATOR) eGFR >90 >=60 mL/min/1. 73 m2 Comment: [...] last reviewed 2021. Blood 08/13/2024 5:44 AM WIRE STRAIGHTENING MACHINE OPERATOR 08/13/2024 6:05 AM WIRE STRAIGHTENING MACHINE OPERATOR us Anastasia Amaro MD LAB BLOOD ORDERABLES Final Result Performing Organization Address City/[facility]/ZIP Co de Phone Number [facility] [place] [address] * (ABNORMAL) Comprehensive metabolic panel (08/13/2024 5:44 AM WIRE STRAIGHTENING MACHINE OPERATOR) Sodium 137 135 - 145 mmol/L Potassium, pl 3.7 3.3 - 4.9 mmol/L [facility] Chloride 104 97 - 110 mmol/L [facility] CO2 22 22 - 32 mmol/L [facility] Anion gap 11 2 - 15 mmol/L [facility] BUN 8 6 - 25 mg/dL [facility] Creatinine 0.49(L) 0.60 - 1.10 mg/dL [facility] Glucose 74 70 - 199 mg/dL [facility] Comment: Interpretive Data Fasting glucose >/= 126 [...] 2022. Calcium 9.4 8.5 - 10.3 mg/dL [facility] Bilirubin, total 0.3 0.1 - 1.2 mg/dL [facility] Protein, pl 6.5 6.5 - 8.5 g/dL [facility] Albumin 3.3(L) 3.5 - 5.0 g/dL [facility] Alk phos 85 40 - 130 Units/L [facility] ALT 21 7 - 45 Units/L [facility] AST 19 10 - 45 Units/L [facility] Blood 08/13/2024 5:44 AM WIRE STRAIGHTENING MACHINE OPERATOR 08/13/2024 6:05 AM WIRE STRAIGHTENING MACHINE OPERATOR us Anastasia Amaro MD LAB BLOOD ORDERABLES Final Result [facility] [place] [address] * (ABNORMAL) CBC without differential (08/13/2024 5:44 AM WIRE STRAIGHTENING MACHINE OPERATOR) Pathologist [facility] WBC 12.4(H) 3.8 - 9.9 K/cumm Hgb 11.8(L) 11.9 - 15.5 g/dL [facility] Hct 34.4(L) 35.6 - 45.5 % [facility] Plt 295 150 - 400 K/cumm [facility] MPV 10.3 9.1 - 12.3 fL [facility] RBC 3.93 3.90 - 5.20 M/cumm [facility] MCV 87.5 81.3 - 96.4 fL [facility] MCH 30.0 27.1 - 33.3 pg [facility] MCHC 34.3 32.3 - 35.7 g/dL [facility] RDW CV 13.6 11.1 - 14.9 % [facility] RDW SD 43.5 35.7 - 48.1 fL [facility] NRBC abs 0.00 0.00 - 0.01 K/cumm [facility] Blood 08/13/2024 5:44 AM WIRE STRAIGHTENING MACHINE OPERATOR 08/13/2024 6:05 AM WIRE STRAIGHTENING MACHINE OPERATOR Anastasia Amaro MD LAB BLOOD ORDERABLES Final Result [facility] [place] [address] * (ABNORMAL) Type and screen (08/13/2024 5:44 AM WIRE STRAIGHTENING MACHINE OPERATOR) Pathologist [facility] ABO Rh O Negative Abiodun, indirect Positive(A) [facility] Blood 08/13/2024 5:44 AM WIRE STRAIGHTENING MACHINE OPERATOR 08/13/2024 6:19 AM WIRE STRAIGHTENING MACHINE OPERATOR Narrative [facility] - 08/13/2024 7:42 AM WIRE STRAIGHTENING MACHINE OPERATOR Has the patient had Daratumumab or Isatuximab in the past 6 months?->Unknown Anastasia Amaro MD LAB BLOOD BANK TEST ORDERA BLES Final Result Performing Organization Address [facility] Co de Phone Number BIA [facility] [place] [place] [address] * RPR Blood (08/13/2024 5:44 AM WIRE STRAIGHTENING MACHINE OPERATOR) RPR Nonreactive Nonreactive Blood 08/13/2024 5:44 AM WIRE STRAIGHTENING MACHINE OPERATOR 08/13/2024 6:05 AM WIRE STRAIGHTENING MACHINE OPERATOR us Anastasia Amaro MD LAB MICROBIOLOGY - GENERAL ORDERABLES Final Result Performing Organization Address [facility] Co de Phone Number BIA [facility] [place] [address] * HIV 1/2 Antibody plus p24 Antigen Blood (08/13/2024 5:44 AM WIRE STRAIGHTENING MACHINE OPERATOR) Pathologist [facility] HIV 1/2 ab + p24 ag Nonreactive Nonreactive Comment:Nonreactive for HIV- 1 antigen and HIV-1/HIV-2 antibodies. No laboratory evidence of HIV infection. If acute HIV infection is suspected, consider testing for HIV-1 RNA. Current interpretive data was last revised on 22. Blood 08/13/2024 5:44 AM WIRE STRAIGHTENING MACHINE OPERATOR 08/13/2024 6:05 AM WIRE STRAIGHTENING MACHINE OPERATOR us Anastasia Amaro MD LAB MICROBIOLOGY - GENERAL ORDERABLES Final Result Performing Organization Address [facility] Co de Phone Number [facility] [place] [address] * GTT 50gm 1hr gestational screen (08/12/2024 11:29 AM WIRE STRAIGHTENING MACHINE OPERATOR) GTT 50g gest screen 106 <=140 mg/dL [...] on 2020. Blood 08/12/2024 11:2 9 AM WIRE STRAIGHTENING MACHINE OPERATOR 08/12/2024 11:41 AM WIRE STRAIGHTENING MACHINE OPERATOR Anastasia Amaro MD LAB BLOOD ORDERABLES Final Result Performing Organization Address [facility] de Phone Number [facility] [place] [address] * Antibody identification (08/10/2024 7:02 AM WIRE STRAIGHTENING MACHINE OPERATOR) [facility] Antibody ID 1 Passive Anti-D Blood 08/10/2024 7:02 AM WIRE STRAIGHTENING MACHINE OPERATOR 08/10/2024 7:02 AM WIRE STRAIGHTENING MACHINE OPERATOR Anastasia Amaro MD LAB BLOOD BANK TEST ORDERA BLES Final Result Performing Organization Address [facility] Phone Number [facility] [place] [address] * eGFR (08/10/2024 4:49 AM WIRE STRAIGHTENING MACHINE OPERATOR) Pathologist [facility] eGFR >90 >=60 mL/min/1. 73 m2 [...] last reviewed 2021. Blood 08/10/2024 4:49 AM WIRE STRAIGHTENING MACHINE OPERATOR 08/10/2024 5:31 AM WIRE STRAIGHTENING MACHINE OPERATOR us Anastasia Amaro MD LAB BLOOD ORDERABLES Final Result [facility] Department [place] [address] * (ABNORMAL) Comprehensive metabolic panel (08/10/2024 4:49 AM WIRE STRAIGHTENING MACHINE OPERATOR) [facility] Sodium 135 135 - 145 mmol/L Potassium, pl 3.5 3.3 - 4.9 mmol/L [facility] Chloride 102 97 - 110 mmol/L [facility] CO2 22 22 - 32 mmol/L [facility] Anion gap 11 2 - 15 mmol/L [facility] BUN 9 6 - 25 mg/dL [facility] Creatinine 0.51(L) 0.60 - 1.10 mg/dL [facility] Glucose 79 70 - 199 mg/dL [facility] Comment: Interpretive Data Fasting glucose >/= 126 [...] 2022. Calcium 9.2 8.5 - 10.3 mg/dL [facility] Bilirubin, total 0.2 0.1 - 1.2 mg/dL [facility] Protein, pl 6.6 6.5 - 8.5 g/dL [facility] Albumin 3.2(L) 3.5 - 5.0 g/dL [facility] Alk phos 85 40 - 130 Units/L [facility] ALT 22 7 - 45 Units/L [facility] AST 19 10 - 45 Units/L [facility] Blood 08/10/2024 4:49 AM WIRE STRAIGHTENING MACHINE OPERATOR 08/10/2024 5:31 AM WIRE STRAIGHTENING MACHINE OPERATOR us Anastasia Amaro MD LAB BLOOD ORDERABLES Final Result [facility] Department [place] [address] * (ABNORMAL) CBC without differential (08/10/2024 4:49 AM WIRE STRAIGHTENING MACHINE OPERATOR) [facility] WBC 11.7(H) 3.8 - 9.9 K/cumm Hgb 11.7(L) 11.9 - 15.5 g/dL [facility] Hct 35.0(L) 35.6 - 45.5 % [facility] Plt 293 150 - 400 K/cumm [facility] MPV 10.5 9.1 - 12.3 fL [facility] RBC 4.00 3.90 - 5.20 M/cumm [facility] MCV 87.5 81.3 - 96.4 fL [facility] MCH 29.3 27.1 - 33.3 pg [facility] MCHC 33.4 32.3 - 35.7 g/dL [facility] RDW CV 13.7 11.1 - 14.9 % [facility] RDW SD 43.8 35.7 - 48.1 fL [facility] NRBC abs 0.00 0.00 - 0.01 K/cumm [facility] Blood 08/10/2024 4:49 AM WIRE STRAIGHTENING MACHINE OPERATOR 08/10/2024 5:42 AM WIRE STRAIGHTENING MACHINE OPERATOR Anastasia Amaro MD LAB BLOOD ORDERABLES Final Result Performing Organization Address City/[facility]/ZIP Co de Phone Number [facility] [place] [place] [address] * (ABNORMAL) Type and screen (08/10/2024 4:49 AM WIRE STRAIGHTENING MACHINE OPERATOR) Abiodun, indirect Positive(A) ABO Rh O Negative [facility] Blood 08/10/2024 4:49 AM WIRE STRAIGHTENING MACHINE OPERATOR 08/10/2024 6:04 AM WIRE STRAIGHTENING MACHINE OPERATOR Narrative [facility] - 08/10/2024 7:02 AM WIRE STRAIGHTENING MACHINE OPERATOR Has the patient had Daratumumab or Isatuximab in the past 6 months?->Unknown Anastasia Amaro MD LAB BLOOD BANK TEST ORDERA BLES Final Result Performing Organization Address [facility] Co de Phone Number [facility] [place] [place] [address] * US Ob 14 Weeks Or Over (08/09/2024 9:47 AM WIRE STRAIGHTENING MACHINE OPERATOR) Fetus# Fetus1 VIEWPOINT Placenta Details anterior VIEWPOINT Presentation Vertex; Maternal right- low VIEWPOINT Fetus# Fetus2 VIEWPOINT Placenta Details anterior VIEWPOINT Presentation Vertex; Maternal left- high VIEWPOINT Anatomical Region Laterality Modality Abdomen N/A Ultrasound 08/09/2024 9:50 AM WIRE STRAIGHTENING MACHINE OPERATOR Impressions 08/09/2024 11:52 AM WIRE STRAIGHTENING MACHINE OPERATOR 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 Chorionicity was not fully assessed but was previously determined to be monochorionic by the [facility] practice. Anatomic surveys were also completed [...] waspreviously determined to be monochorionic by the [facility] practice.Anatomic surveys were also completed there. [...] mild left-sided ventriculomegaly us Anastasia Amaro MD IM OB US PROCEDURES Final Result * Antibody identification (08/07/2024 6:51 AM WIRE STRAIGHTENING MACHINE OPERATOR) Antibody ID 1 Passive Anti-D Blood 08/07/2024 6:51 AM WIRE STRAIGHTENING MACHINE OPERATOR 08/07/2024 6:51 AM WIRE STRAIGHTENING MACHINE OPERATOR us Anastasia Amaro MD LAB BLOOD BANK TEST ORDERA BLES Final Result [facility] Department [place] [address] * eGFR (08/07/2024 5:00 AM WIRE STRAIGHTENING MACHINE OPERATOR) Pathologist [facility] eGFR >90 >=60 mL/min/1. 73 m2 [...] last reviewed 2021. Blood 08/07/2024 5:00 AM WIRE STRAIGHTENING MACHINE OPERATOR 08/07/2024 4:56 AM WIRE STRAIGHTENING MACHINE OPERATOR us Anastasia Amaro MD LAB BLOOD ORDERABLES Final Result [facility] Department [place] [address] * (ABNORMAL) Comprehensive metabolic panel (08/07/2024 5:00 AM WIRE STRAIGHTENING MACHINE OPERATOR) Pathologist [facility] Sodium 138 135 - 145 mmol/L Potassium, pl 3.6 3.3 - 4.9 mmol/L [facility] Chloride 105 97 - 110 mmol/L [facility] CO2 22 22 - 32 mmol/L [facility] Anion gap 11 2 - 15 mmol/L [facility] BUN 7 6 - 25 mg/dL [facility] Creatinine 0.47(L) 0.60 - 1.10 mg/dL [facility] Glucose 84 70 - 199 mg/dL [facility] Comment: Interpretive Data Fasting glucose >/= 126 [...] 2022. Calcium 9.3 8.5 - 10.3 mg/dL [facility] Bilirubin, total 0.2 0.1 - 1.2 mg/dL [facility] Protein, pl 6.3(L) 6.5 - 8.5 g/dL [facility] Albumin 3.1(L) 3.5 - 5.0 g/dL [facility] Alk phos 80 40 - 130 Units/L [facility] ALT 26 7 - 45 Units/L [facility] AST 16 10 - 45 Units/L [facility] Blood 08/07/2024 5:00 AM WIRE STRAIGHTENING MACHINE OPERATOR 08/07/2024 4:56 AM WIRE STRAIGHTENING MACHINE OPERATOR Anastasia Amaro MD LAB BLOOD ORDERABLES Final Result [facility] Department of Laboratories [place], [place] [id number] * (ABNORMAL) CBC without differential (08/07/2024 5:00 AM WIRE STRAIGHTENING MACHINE OPERATOR) WBC 10.2(H) 3.8 - 9.9 K/cumm Hgb 12.0 11.9 - 15.5 g/dL [facility] Hct 35.0(L) 35.6 - 45.5 % [facility] Plt 261 150 - 400 K/cumm [facility] MPV 10.2 9.1 - 12.3 fL [facility] RBC 4.02 3.90 - 5.20 M/cumm [facility] MCV 87.1 81.3 - 96.4 fL [facility] MCH 29.9 27.1 - 33.3 pg [facility] MCHC 34.3 32.3 - 35.7 g/dL [facility] RDW CV 13.8 11.1 - 14.9 % [facility] RDW SD 44.4 35.7 - 48.1 fL [facility] NRBC abs 0.00 0.00 - 0.01 K/cumm [facility] Blood 08/07/2024 5:00 AM WIRE STRAIGHTENING MACHINE OPERATOR 08/07/2024 4:56 AM WIRE STRAIGHTENING MACHINE OPERATOR Anastasia Amaro MD LAB BLOOD ORDERABLES Final Result Performing Organization Address City/[facility] Co de Phone Number [facility] [place] [place] [address] * (ABNORMAL) Type and screen (08/07/2024 4:45 AM WIRE STRAIGHTENING MACHINE OPERATOR) Abiodun, indirect Positive(A) ABO Rh O Negative [facility] Blood 08/07/2024 4:45 AM WIRE STRAIGHTENING MACHINE OPERATOR 08/07/2024 5:12 AM WIRE STRAIGHTENING MACHINE OPERATOR Narrative [facility] - 08/07/2024 6:51 AM WIRE STRAIGHTENING MACHINE OPERATOR Has the patient had Daratumumab or Isatuximab in the past 6 months?->Unknown us Anastasia Amaro MD LAB BLOOD BANK TEST ORDERA BLES Final Result Performing Organization Address City/[facility]/ZIP Co de Phone Number [facility] [place] [address] * CT Chest PE (CTA) W Contrast [...] pathogen panel Nasopharyngeal (08/04/2024 6:28 PM CDT) Influenza A RNA Not Detected Not Detected Influenza B RNA Not Detected Not Detected [facility] RSV RNA Not Detected Not Detected [facility] COVID-19 RNA Not Detected Not Detected [facility] Coronavirus 229E RNA Not Detected Not Detected [facility] Coronavirus HKU1 RNA Not Detected Not Detected [facility] Coronavirus NL63 RNA Not Detected Not Detected [facility] Coronavirus OC43 RNA Not Detected Not Detected [facility] Adenovirus DNA Not Detected Not Detected [facility] Metapneumovirus RNA Not Detected Not Detected [facility] Rhinovirus/Enterov irus RNA Not Detected Not Detected [facility] Parainfluenza 1 RNA Not Detected Not Detected [facility] Parainfluenza 2 RNA Not Detected Not Detected [facility] Parainfluenza 3 RNA Not Detected Not Detected [facility] Parainfluenza 4 RNA Not Detected Not Detected [facility] B. pertussis DNA Not Detected Not Detected [facility] B. parapertussis DNA Not Detected Not Detected [facility] C. pneumoniae DNA Not Detected Not Detected [facility] M. pneumoniae DNA Not Detected Not Detected [facility] Nasopharyngeal 08/04/2024 6: 28 PM CDT 08/04/2024 6:48 PM CDT Narrative [facility] - 08/04/2024 8:16 PM CDT Is the Patient experiencing symptoms consistent with COVID?->No Surveillance testing for transplant patient?->No ??Interpretive Data The Fluorofinder FilmArray Respiratory Panel (RP2.1) assay is a [...] assay has FDA clearance for testing of CHILD SUPPORT OFFICER swabs. ??The performance of additional specimen types has been assessed by the performing laboratory. ??The performance characteristics of this assay have been determined by [facility] Molecular Infectious Disease Laboratory. Current interpretive data was last revised on 22. us Anastasia Amaro MD LAB MICROBIOLOGY - GENERAL ORDERABLES Final Result Performing Organization Address City/[facility] Co de Phone Number BIA BURT [facility] [place] [address] * (ABNORMAL) D-dimer, quantitative (08/04/2024 6:28 PM [...] BLOOD ORDERABLES Final Result Performing Organization Address City/[facility]/ZIP Co de Phone Number BIA [facility] [place] [address] * ECG 12 lead (08/04/2024 5:45 PM CDT) Ventricular Rate EKG/Min 131 BPM [facility] Atrial Rate 131 BPM [facility] WY-Interval (MSEC) 126 ms [facility] QRS-Interval (MSEC) 74 ms [facility] QT-Interval (MSEC) 300 ms [facility] QTc 443 ms [facility] P Tiller 53 degrees [facility] R Tiller 8 degrees [facility] T Tiller 33 degrees [facility] Diagnosis Sinus tachycardia Otherwise normal ECG Confirmed by Kaci Estrella MD ([id number]) on 08/08/2024 3:27:38 AM [facility] 08/04/2024 5:45 PM CDT 08/08/2024 3:27 AM WIRE STRAIGHTENING MACHINE OPERATOR us Anastasia Amaro MD ECG ORDERABLES Final Resu lt Performing Organization Address [facility] Co de Phone Number [facility] * ECG 12 lead (08/04/2024 11:54 AM CDT) Ventricular Rate EKG/Min 110 BPM [facility] Atrial Rate 110 BPM [facility] WY-Interval (MSEC) 122 ms [facility] QRS-Interval (MSEC) 78 ms [facility] QT-Interval (MSEC) 334 ms [facility] QTc 452 ms [facility] P Tiller 52 degrees [facility] R Tiller 5 degrees [facility] T Tiller 25 degrees [facility] Diagnosis Sinus tachycardia Otherwise normal ECG No previous ECGs available Confirmed by SAMANTA KAPLAN M.D ([id number]) on 08/04/2024 1:23:30 PM [facility] 08/04/2024 11:5 4 AM CDT 08/04/2024 1:23 PM CDT us Anastasia Amaro MD ECG ORDERABLES Final Resu lt Performing Organization Address City/[facility]/ZIP Co de Phone Number [facility] * Antibody identification (08/04/2024 6:12 AM CDT) Antibody ID 1 Passive Anti-D Blood 08/04/2024 6:12 AM CDT 08/04/2024 6:12 AM CDT us Anastasia Amaro MD LAB BLOOD BANK TEST ORDERA BLES Final Result [facility] Department [place] [address] * eGFR (08/04/2024 4:48 AM CDT) eGFR [...] Amaro MD LAB BLOOD ORDERABLES Final Result [facility] [place] [address] * (ABNORMAL) Comprehensive metabolic panel (08/04/2024 4:48 AM CDT) Sodium 137 135 - 145 mmol/L Potassium, pl 3.8 3.3 - 4.9 mmol/L [facility] Chloride 104 97 - 110 mmol/L [facility] CO2 22 22 - 32 mmol/L [facility] Anion gap 11 2 - 15 mmol/L [facility] BUN 8 6 - 25 mg/dL [facility] Creatinine 0.44(L) 0.60 - 1.10 mg/dL [facility] Glucose 77 70 - 199 mg/dL [facility] Comment: Interpretive Data Fasting glucose >/= 126 [...] 2022. Calcium 9.2 8.5 - 10.3 mg/dL [facility] Bilirubin, total 0.3 0.1 - 1.2 mg/dL [facility] Protein, pl 6.6 6.5 - 8.5 g/dL [facility] Albumin 3.3(L) 3.5 - 5.0 g/dL [facility] Alk phos 82 40 - 130 Units/L [facility] ALT 23 7 - 45 Units/L [facility] AST 25 10 - 45 Units/L [facility] Blood 08/04/2024 4:48 AM CDT 08/04/2024 5:02 AM CDT Anastasia Amaro MD LAB BLOOD ORDERABLES Final Result Performing Organization Address City/[facility]/ZIP Co de Phone Number [facility] [place] [address] * (ABNORMAL) CBC without differential (08/04/2024 4:48 AM CDT) WBC 12.6(H) 3.8 - 9.9 K/cumm Hgb 12.4 11.9 - 15.5 g/dL [facility] Hct 36.5 35.6 - 45.5 % [facility] Plt 278 150 - 400 K/cumm [facility] MPV 10.2 9.1 - 12.3 fL [facility] RBC 4.17 3.90 - 5.20 M/cumm [facility] MCV 87.5 81.3 - 96.4 fL [facility] MCH 29.7 27.1 - 33.3 pg [facility] MCHC 34.0 32.3 - 35.7 g/dL [facility] RDW CV 14.1 11.1 - 14.9 % [facility] RDW SD 45.0 35.7 - 48.1 fL [facility] NRBC abs 0.00 0.00 - 0.01 K/cumm [facility] Blood 08/04/2024 4:48 AM CDT 08/04/2024 5:02 AM CDT Anastasia Amaro MD LAB BLOOD ORDERABLES Final Result [facility] [place] [address] * (ABNORMAL) Type and screen (08/04/2024 4:48 AM CDT) ABO Rh O Negative Abiodun, indirect Positive(A) [facility] Blood 08/04/2024 4:48 AM CDT 08/04/2024 4:59 AM CDT Narrative BIA TODD - 08/04/2024 6:12 AM CDT Has the patient had Daratumumab or Isatuximab in the past 6 months?->Unknown us Anastasia Amaro MD LAB BLOOD BANK TEST ORDERA BLES Final Result [facility] [place] [address] * Cardiolipin antibody, IgG and IgM (08/04/2024 [...] [place]. These results were obtained with the [employer] 2200 System. Cardiolipin IgG values obtained with different manufacturers' assay methods may not be used interchangeably. Current interpretive data was last revised on 2017. Cardiolipin, IgM 0.7 <=19.9 MPL U/mL [facility] Comment: Interpretive Data Negative: <20 MPL U/mL [...] antibodies. ??These results were obtained with the [employer] 2200 System. Cardiolipin IgM values obtained with different manufacturers' assay methods may not be used interchangeably. Current interpretive data was last revised on 2017. Blood 08/04/2024 4:48 AM CDT 08/04/2024 5:02 AM CDT Anastasia Amaro MD LAB BLOOD ORDERABLES Final Result [facility] [place] [address] * Beta 2 glycoprotein IgM Ab (08/04/2024 4:48 AM CDT) [facility] Beta-2 glycoprotein I, IgM 0.6 <=19.9 units/mL [...] factor. ??These results were obtained with the [employer] 2200 System. Beta-2 GP1 IgM values obtained with different manufacturers' assay methods may not be used interchangeably. Current interpretive data was last revised on 2017. Blood 08/04/2024 4:48 AM CDT 08/04/2024 5:02 AM CDT Anastasia Amaro MD LAB BLOOD ORDERABLES Final Result Performing Organization Address [facility] de Phone Number [facility] [place] [address] * Beta 2 glycoprotein IgG Ab (08/04/2024 4:48 AM CDT) [facility] Beta-2 glycoprotein I, IgG <1.4 <=19.9 units/mL Comment: Interpretive Data Negative: <20 U/mL Positive: > or = 20 U/mL ? Beta-2 glycoprotein 1 (Beta-2 GP1) antibodies are a more specific marker of thrombotic risk. It is expected that some samples will be ACL positive and Beta- 2 [id number]. In order to improve specificity, the International Congress on Antiphospholipid Antibodies recommends Beta-2 GP1 antibodies of IgG or IgM isotype ??(> the 99th percentile), obtained twice, at least 12 weeks apart, to support a diagnosis of antiphospholipid syndrome. The cutoff for this assay was developed from data based on the 99th percentile. These results were obtained with the [employer] 2200 System. Beta 2GP1 IgG values obtained with different manufacturers' assay methods may not be used interchangeably. Current interpretive data was last revised on 2017. Blood 08/04/2024 4:48 AM CDT 08/04/2024 5:02 AM CDT Anastasia Amaro MD LAB BLOOD ORDERABLES Final Result Performing Organization Address [facility] Co de Phone Number [facility] [place] [address] * Lupus Anticoagulant Panel plus Reflexes (08/04/2024 4:48 AM CDT) PT 11.6 9.7 - 13.0 sec INR 1.07 0.90 - 1.20 BIA [facility] Comment: Interpretive data Oral anticoagulant therapeutic ranges: Venous thromboembolism prophylaxis or treatment: 2.0-3.0 CARDIOLOGY Standard range: 2.0-3.0 High-intensity range: 2.5-3.5 Refer to indication-specific guidelines for appropriate target ranges for prosthetic heart valve replacement. Current interpretive data was last revised on 2019. aPTT 29 28 - [address] [facility] [facility] Comment: Interpretive Data Heparin therapeutic range: 66.0 - 100.0 seconds. Range based on correlation with therapeutic heparin activity range of 0.3 - 0.7 Units/mL. Current interpretive data was last revised on 2023. DRVVT screen ratio 1.13 0.00 - 1.20 Ratio BIA [facility] SCT Screen Ratio 1.01 0.00 - 1.[address] [facility] Lupus anticoagulant, interp Negative [facility] Comment: Interpretive data ?? Lupus anticoagulants ([place]) [...] lupus anticoagulant detection. J Thromb Haemost. 2009; 7:5241-8443. 2. Andrew Loera. et al. International consensus statement on an update of the classification criteria for definite antiphospholipid syndrome (APS). J Thromb Haemost. 2006; 4:295-306. Current interpretive data was last revised on 2018 Blood 08/04/2024 4:48 AM CDT 08/04/2024 5:21 AM CDT us Anastasia Amaro MD LAB BLOOD ORDERABLES Final Result Performing Organization Address City/State/[facility] Co tn Phone Number [facility] [place] [address] * Echocardiogram (08/03/2024 4:07 PM CDT) Anatomical Region Laterality Modality Ultrasound 08/03/2024 1:22 PM CDT Narrative 08/03/2024 5:10 PM CDT ?[facility] ? Echo Report ?[facility] [address], [place], [place] ??[address] ?[phone] ? Patient Name: SUKI LEON ? Study Type: Echo ? Patient : 1995 ? Exam Date: ??08/03/2024 ? Age: ?29Y ? Exam Time: ??1:22:00 PM ? Referring MD: SIM HUSAIN ? Height: ? 65in ? Weight: ? 284lb ? BSA: ?2.3 m2 ? Sex: FEMALE ? BP: ? 139/83 ? Car Changer: May Quick ? Pat. Stat.: Inpatient ?Room: 6800 ? Account:[id number] ? Indications for Study:MONO-DI TWINS Procedures: COLORFLOW, [...] Normal. Septum: PFO. Defect sz. Moderate ??Shunt: [id number]-Vavm ?? Annular Dimensions: ??Ao Valve: 0.52 cm [...] Procedure Note Macie Vickers MD - 08/03/2024 [facility] Station Echo Report One [address] [address] Patient Name: SUKI LEON Study Type: Echo Patient : 1995 Exam Date: 08/03/2024 Age: 29Y Exam Time: 1:22:00 PM Referring MD: SIM HUSAIN Height: 65in Weight: 284lb BSA: 2.3 m2 Sex: FEMALE BP: 139/83 Car Changer: May Webber Stat.: Inpatient Room: [facility] Account:[id number] Indications for Study:MONO-DI TWINS Procedures: COLORFLOW, DOPPLER [...] Normal. Septum: PFO. Defect sz. Moderate Shunt: Vzeqe-nq-Mtlv Annular Dimensions: Ao Valve: 0.52 cm (+0.79) [...] AM CDT Narrative 08/03/2024 4:30 PM CDT ?[facility] ? Echo Report ?One [facility]'s [address] ??[address] ?[phone] ? Patient Name: SUKI LEON ? Study Type: Echo ? Patient : 1995 ? Exam Date: ??08/03/2024 ? Age: ?29Y ? Exam Time: ??11:38:00 AM ? Referring MD: SIM HUSAIN ? Height: ? 65in ? Weight: ? 284lb ? BSA: ?2.3 m2 ? Sex: FEMALE ? BP: ? 139/83 ? Car Changer: May Quick ? Pat. Stat.: Inpatient ?Room: 6800 ? Account:[id number] ? Indications for Study:AORTIC ECTASIA. 747.29, MONO-DI [...] Normal. Septum: PFO. Defect sz. Moderate ??Shunt: Fsfur-gy-Dxkg ?? Ventricles: D-looped ??LV size: Normal. LV [...] Procedure Note Macie Vickers MD - 08/03/2024 [facility] Echo Report [facility] [address], [place] [address] Patient Name: SUKI LEON Study Type: Echo Patient : 1995 Exam Date: 08/03/2024 Age: 29Y Exam Time: 11:38:00 AM Referring MD: SIM HUSAIN Height: 65in Weight: 284lb BSA: 2.3 m2 Sex: FEMALE BP: 139/83 Car Changer: May Quick Pat. Stat.: Inpatient Room: [facility] Account:[id number] Indications for Study:AORTIC ECTASIA. 747.29, MONO-DI TWINS [...] Normal. Septum: PFO. Defect sz. Moderate Shunt: Gxnve-lg-Notm Ventricles: D-looped LV size: Normal. LV function:Normal. [...] previously determined to be monochorionic by the [facility] practice. Anatomic surveys were also completed [...] was previously determined to bemonochorionic by the [facility] practice. Anatomic surveys were alsocompleted there. A [...] due to time constraints. This is recommended. Anastasia Amaro MD IMG OB US PROCEDURES Final Result * Group B streptococcal culture Vaginal/Rectal (08/01/2024 4:09 PM CDT) Report Final Report: Negative Vaginal/Rectal 08/01/2024 4: 09 PM CDT 08/01/2024 4:24 PM CDT Narrative BIA [facility] - 08/04/2024 11:19 AM CDT Testing performed by [facility] Microbiology Laboratory ([phone]). us Millicent Duran NP LAB MICROBIOLOGY - GENERAL ORDERABLES Final Result BIA [facility] One [facility] Department [place] [address] * eGFR (08/01/2024 4:33 AM CDT) eGFR [...] Amaro MD LAB BLOOD ORDERABLES Final Result [facility] One [facility] Department [place] [address] * (ABNORMAL) Comprehensive metabolic panel (08/01/2024 4:33 AM CDT) Sodium 140 135 - 145 mmol/L Potassium, pl 3.8 3.3 - 4.9 mmol/L [facility] Chloride 106 97 - 110 mmol/L [facility] CO2 23 22 - 32 mmol/L [facility] Anion gap 11 2 - 15 mmol/L [facility] BUN 7 6 - 25 mg/dL [facility] Creatinine 0.46(L) 0.60 - 1.10 mg/dL [facility] Glucose 75 70 - 199 mg/dL [facility] Comment: Interpretive Data Fasting glucose >/= 126 [...] 2022. Calcium 9.2 8.5 - 10.3 mg/dL [facility] Bilirubin, total 0.2 0.1 - 1.2 mg/dL [facility] Protein, pl 6.1(L) 6.5 - 8.5 g/dL [facility] Albumin 3.1(L) 3.5 - 5.0 g/dL [facility] Alk phos 69 40 - 130 Units/L [facility] ALT 30 7 - 45 Units/L [facility] AST 28 10 - 45 Units/L [facility] Blood 08/01/2024 4:33 AM CDT 08/01/2024 4:48 AM CDT us Anastasia Amaro MD LAB BLOOD ORDERABLES Final Result [facility] One [facility] Department of Laboratories [place], [place] [id number] * (ABNORMAL) CBC without differential (08/01/2024 4:33 AM CDT) [facility] WBC 10.6(H) 3.8 - 9.9 K/cumm Hgb 11.7(L) 11.9 - 15.5 g/dL [facility] Hct 35.1(L) 35.6 - 45.5 % [facility] Plt 269 150 - 400 K/cumm [facility] MPV 9.9 9.1 - 12.3 fL [facility] RBC 3.96 3.90 - 5.20 M/cumm [facility] MCV 88.6 81.3 - 96.4 fL [facility] MCH 29.5 27.1 - 33.3 pg [facility] MCHC 33.3 32.3 - 35.7 g/dL [facility] RDW CV 14.3 11.1 - 14.9 % [facility] RDW SD 46.5 35.7 - 48.1 fL [facility] NRBC abs 0.00 0.00 - 0.01 K/cumm [facility] Blood 08/01/2024 4:33 AM CDT 08/01/2024 4:48 AM CDT us Anastasia Amaro MD LAB BLOOD ORDERABLES Final Result Performing Organization Address City/[facility]/ZIP Co de Phone Number [facility] [place] [place] [address] * Type and screen (08/01/2024 4:33 AM CDT) Pathologist [facility] Abiodun, indirect Negative ABO Rh O Negative [facility] Blood 08/01/2024 4:33 AM CDT 08/01/2024 5:12 AM CDT Narrative [facility] - 08/01/2024 6:16 AM CDT Has the patient had Daratumumab or Isatuximab in the past 6 months?->Unknown us Anastasia Amaro MD LAB BLOOD BANK TEST ORDERA BLES Final Result [facility] [place] [place] [address] * (ABNORMAL) CBC without differential (07/31/2024 5:09 AM CDT) Pathologist [facility] WBC 11.0(H) 3.8 - 9.9 K/cumm Hgb 10.8(L) 11.9 - 15.5 g/dL [facility] Hct 33.1(L) 35.6 - 45.5 % [facility] Plt 257 150 - 400 K/cumm [facility] MPV 10.3 9.1 - 12.3 fL [facility] RBC 3.71(L) 3.90 - 5.20 M/cumm [facility] MCV 89.2 81.3 - 96.4 fL [facility] MCH 29.1 27.1 - 33.3 pg [facility] MCHC 32.6 32.3 - 35.7 g/dL [facility] RDW CV 14.3 11.1 - 14.9 % [facility] RDW SD 46.8 35.7 - 48.1 fL [facility] NRBC abs 0.02(H) 0.00 - 0.01 K/cumm [facility] Blood 07/31/2024 5:09 AM CDT 07/31/2024 5:27 AM CDT us Anastasia Amaro MD LAB BLOOD ORDERABLES Final Result Performing Organization Address City/[facility]/ZIP Co de Phone Number [facility] [place] [place] [address] * Magnesium (07/31/2024 5:07 AM CDT) [facility] Magnesium 1.9 1.4 - 2.5 mg/dL Blood 07/31/2024 5:07 AM CDT 07/31/2024 5:26 AM CDT Anastasia Amaro MD LAB BLOOD ORDERABLES Final Result Performing Organization Address City/[facility]/ZIP Co de Phone Number [facility] [place] [address] * eGFR (07/30/2024 4:49 AM CDT) eGFR [...] Amaro MD LAB BLOOD ORDERABLES Final Result [facility] One [facility] Department [place] [address] * (ABNORMAL) Comprehensive metabolic panel (07/30/2024 4:49 AM CDT) [facility] Sodium 140 135 - 145 mmol/L Potassium, pl 3.9 3.3 - 4.9 mmol/L [facility] Chloride 108 97 - 110 mmol/L [facility] CO2 22 22 - 32 mmol/L [facility] Anion gap 10 2 - 15 mmol/L [facility] BUN 5(L) 6 - 25 mg/dL [facility] Creatinine 0.46(L) 0.60 - 1.10 mg/dL [facility] Glucose 100 70 - 199 mg/dL [facility] Comment: Interpretive Data Fasting glucose >/= 126 [...] 2022. Calcium 8.6 8.5 - 10.3 mg/dL [facility] Bilirubin, total 0.3 0.1 - 1.2 mg/dL [facility] Protein, pl 6.2(L) 6.5 - 8.5 g/dL [facility] Albumin 3.2(L) 3.5 - 5.0 g/dL [facility] Alk phos 70 40 - 130 Units/L [facility] ALT 22 7 - 45 Units/L [facility] AST 23 10 - 45 Units/L [facility] Blood 07/30/2024 4:49 AM CDT 07/30/2024 5:02 AM CDT us Anastasia Amaro MD LAB BLOOD ORDERABLES Final Result [facility] One [facility] Department [place] [address] * (ABNORMAL) CBC without differential (07/30/2024 4:49 AM CDT) [facility] Signature WBC 10.2(H) 3.8 - 9.9 K/cumm Hgb 10.9(L) 11.9 - 15.5 g/dL [facility] Hct 32.5(L) 35.6 - 45.5 % [facility] Plt 262 150 - 400 K/cumm [facility] MPV 10.0 9.1 - 12.3 fL [facility] RBC 3.65(L) 3.90 - 5.20 M/cumm [facility] MCV 89.0 81.3 - 96.4 fL [facility] MCH 29.9 27.1 - 33.3 pg [facility] MCHC 33.5 32.3 - 35.7 g/dL [facility] RDW CV 14.4 11.1 - 14.9 % [facility] RDW SD 46.5 35.7 - 48.1 fL [facility] NRBC abs 0.00 0.00 - 0.01 K/cumm [facility] Blood 07/30/2024 4:49 AM CDT 07/30/2024 5:02 AM CDT us Anastasia Amaro MD LAB BLOOD ORDERABLES Final Result Performing Organization Address [facility] Co de Phone Number [facility] Department [place] [address] * Magnesium (07/30/2024 4:49 AM CDT) Magnesium 2.3 1.4 - 2.5 mg/dL Blood 07/30/2024 4:49 AM CDT 07/30/2024 5:02 AM CDT Anastasia Amaro MD LAB BLOOD ORDERABLES Final Result Performing Organization Address City/[facility]/ZIP Co de Phone Number [facility] [place] [address] * Check Sample (07/29/2024 6:47 AM CDT) ABO Rh O Negative [facility] HCLL OTHER 07/29/2024 6:47 AM CDT 07/29/2024 7:10 AM CDT Anastasia Amaro MD LAB BLOOD ORDERABLES Final Result [facility] One [facility] Department [place] [address] BJ * eGFR (07/29/2024 5:43 AM CDT) Pathologist [facility] eGFR >90 >=60 mL/min/1. 73 m2 [...] BLOOD ORDERABLES Final Result [facility] One [facility] Department [place] [address] * (ABNORMAL) Magnesium (07/29/2024 5:43 AM CDT) Magnesium 3.7(H) 1.4 - 2.5 mg/dL Blood 07/29/2024 5:43 AM CDT 07/29/2024 6:36 AM CDT Anastasia Amaro MD LAB BLOOD ORDERABLES Final Result Performing Organization Address [facility] de Phone Number [facility] [place] [place] [address] * RPR Blood (07/29/2024 5:43 AM CDT) [facility] RPR Nonreactive Nonreactive Blood 07/29/2024 5:43 AM CDT 07/29/2024 6:36 AM CDT Anastasia Amaro MD LAB MICROBIOLOGY - GENERAL ORDERABLES Final Result Performing Organization Address [facility] Phone Number [facility] [place] [place] [address] * HIV 1/2 Antibody plus p24 Antigen Blood (07/29/2024 5:43 AM CDT) [facility] HIV 1/2 ab + p24 ag Nonreactive [...] ORDERABLES Final Result Performing Organization Address [facility] [place] [address] * Protein / creatinine ratio, urine, random (07/29/2024 5:43 AM CDT) [facility] Protein, ur, quant 8.4 mg/dL Comment: Interpretive Data No reference range established. Current interpretive data was last revised 2019. Creatinine Ur 82.2 mg/dL [facility] Comment: Interpretive Data No reference range established. Current interpretive data was last revised 2019. Protein/creatinin e ratio 102.2 0.0 - 180.0 mg/g CR [facility] Urine 07/29/2024 5:43 AM CDT 07/29/2024 9:30 AM CDT us Anastasia Amaro MD LAB URINE ORDERABLES Final Result [facility] One [facility] Department [place] [address] * (ABNORMAL) Comprehensive metabolic panel (07/29/2024 5:43 AM CDT) [facility] Sodium 140 135 - 145 mmol/L Potassium, pl 3.4 3.3 - 4.9 mmol/L [facility] Chloride 103 97 - 110 mmol/L [facility] CO2 22 22 - 32 mmol/L [facility] Anion gap 15 2 - 15 mmol/L [facility] BUN 5(L) 6 - 25 mg/dL [facility] Creatinine 0.51(L) 0.60 - 1.10 mg/dL [facility] Glucose 92 70 - 199 mg/dL [facility] Comment: Interpretive Data Fasting glucose >/= 126 [...] 2022. Calcium 8.5 8.5 - 10.3 mg/dL [facility] Bilirubin, total 0.6 0.1 - 1.2 mg/dL [facility] Protein, pl 6.5 6.5 - 8.5 g/dL [facility] Albumin 3.7 3.5 - 5.0 g/dL [facility] Alk phos 74 40 - 130 Units/L [facility] ALT 20 7 - 45 Units/L [facility] AST 25 10 - 45 Units/L [facility] Blood 07/29/2024 5:43 AM CDT 07/29/2024 6:36 AM CDT Anastasia Amaro MD LAB BLOOD ORDERABLES Final Result Performing Organization Address City/[facility]/ZIP Co de Phone Number [facility] Department [place] [address] * Type and screen (07/29/2024 5:43 AM CDT) Pathologist [facility] Abiodun, indirect Negative ABO Rh O Negative [facility] Blood 07/29/2024 5:43 AM CDT 07/29/2024 6:37 AM CDT Narrative [facility] - 07/29/2024 7:26 AM CDT Has the patient had Daratumumab or Isatuximab in the past 6 months?->Unknown us Anastasia Amaro MD LAB BLOOD BANK TEST ORDERA BLES Final Result Performing Organization Address City/[facility] Co de Phone Number [facility] Department [place] [address] * (ABNORMAL) CBC without differential (07/29/2024 5:43 AM CDT) Pathologist [facility] WBC 9.6 3.8 - 9.9 K/cumm Hgb 11.2(L) 11.9 - 15.5 g/dL [facility] Hct 33.5(L) 35.6 - 45.5 % [facility] Plt 291 150 - 400 K/cumm [facility] MPV 10.4 9.1 - 12.3 fL [facility] RBC 3.83(L) 3.90 - 5.20 M/cumm [facility] MCV 87.5 81.3 - 96.4 fL [facility] MCH 29.2 27.1 - 33.3 pg [facility] MCHC 33.4 32.3 - 35.7 g/dL [facility] RDW CV 14.2 11.1 - 14.9 % [facility] RDW SD 45.5 35.7 - 48.1 fL [facility] NRBC abs 0.00 0.00 - 0.01 K/cumm [facility] Blood 07/29/2024 5:43 AM CDT 07/29/2024 6:35 AM CDT us Anastasia Amaro MD LAB BLOOD ORDERABLES Final Result [facility] One [facility] Department [place] [address] documented in this encounter Visit Diagnoses Diagnosis Preeclampsia, unspecified trimester- Primary Preeclampsia, unspecified trimester Twin , unable to determine number of placenta and number of amniotic sacs, antepartum, unspecified trimester [O30.099] 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 care following delivery documented in this encounter Admitting Diagnoses Diagnosis Preeclampsia, unspecified trimester documented in this encounter Administered Medications Inactive Administered Medications - up to 3 most recent administrations Medication Order MAR Action Action Date Dose Rate Site acetaminophen (TYLENOL) tablet 1,000 mg 1,000 mg, oral, Every 6 hours PRN, 1st line for pain, Starting on Thu08/30/24 at 1100 Given 09/19/2024 3:50 AM WIRE STRAIGHTENING MACHINE OPERATOR 1,000 mg Given 09/18/2024 6:52 PM WIRE STRAIGHTENING MACHINE OPERATOR 1,000 mg Given 09/18/2024 11:34 AM WIRE STRAIGHTENING MACHINE OPERATOR 1,000 mg acetaminophen (TYLENOL) tablet 1,000 mg 1,000 mg, oral, Every 6 hours scheduled, First dose on Thu09/19/24 at 1800, For 24 hours, When able to tolerate PO. Max 4 doses. Anesthesia orders for the first 24 hours ., Indications: PainIndications:Pain Given 09/20/2024 12:56 PM WIRE STRAIGHTENING MACHINE OPERATOR 1,000 mg Given 09/20/2024 7:18 AM WIRE STRAIGHTENING MACHINE OPERATOR 1,000 mg Given 09/20/2024 12:28 AM WIRE STRAIGHTENING MACHINE OPERATOR 1,000 mg acetaminophen (TYLENOL) tablet 1,000 mg 1,000 mg, oral, Every 6 hours PRN, 1st line for pain, Starting on Thu09/20/24 at 1800, Start in 24 hours after Anesthesia no longer covering., Indications: PainIndications:Pain Given 09/22/2024 8:33 AM WIRE STRAIGHTENING MACHINE OPERATOR 1,000 mg Given 09/22/2024 12:53 AM WIRE STRAIGHTENING MACHINE OPERATOR 1,000 mg Given 09/21/2024 6:08 PM WIRE STRAIGHTENING MACHINE OPERATOR 1,000 mg acetaminophen (TYLENOL) tablet 650 mg 650 mg, oral, Every 4 hours PRN, 1st line for pain, Starting on Thu07/29/24 at 0317 Given 08/29/2024 4:40 PM WIRE STRAIGHTENING MACHINE OPERATOR 650 m g Given 08/29/2024 9:37 AM WIRE STRAIGHTENING MACHINE OPERATOR 650 mg Given 08/28/2024 6:29 PM WIRE STRAIGHTENING MACHINE OPERATOR 650 mg aspirin chewable tablet 81 mg 81 mg, oral, Daily, First dose on Thu07/29/24 at 0900 Given 09/18/2024 9:08 AM WIRE STRAIGHTENING MACHINE OPERATOR 81 mg Given 09/17/2024 9:24 AM WIRE STRAIGHTENING MACHINE OPERATOR 81 mg Given 09/16/2024 9:41 AM WIRE STRAIGHTENING MACHINE OPERATOR 81 mg betamethasone (CELESTONE) injection 12 mg 12 mg, intramuscular, Once, On Thu07/29/24 at 2330, For 1 dose Given 07/29/2024 11:04 PM CDT 12 mg Left Dorsogluteal/Buttoc k calcium carbonate (TUMS) chewable tablet 500 mg 500 mg, oral, 4 times daily PRN, heartburn, Starting on Thu09/19/24 at 1634, Indications: DyspepsiaIndications:Dyspepsia Given 09/20/2024 8:34 PM WIRE STRAIGHTENING MACHINE OPERATOR 500 mg calcium gluconate 100 mg/mL (10%) injection 1 g 1 g, intravenous, Administer over 3 Minutes, Once as needed, magnesium toxicity, Starting on Thu09/19/24 at 1311, For 1 dose, Administer over 3 minutes for magnesium toxicity which may include respiratory rate 12 or less/minute, decreased level of consciousness, absence of reflexes. Notifisaias ZARATE, Indications: hypermagnesemiaIndications:hype rmagnesemia carbamide peroxide (DEBROX) 6.5 % otic solution 10 drop 10 drop, right ear, 2 times daily PRN, ear wax removal, Starting on Thu08/19/24 at 1722, Indications: Impacted CerumenIndications:Impacted Cerumen Given 09/09/2024 10:41 AM WIRE STRAIGHTENING MACHINE OPERATOR 10 drops Given 09/02/2024 1:56 PM WIRE STRAIGHTENING MACHINE OPERATOR 10 drops Given 08/27/2024 11:03 AM WIRE STRAIGHTENING MACHINE OPERATOR 10 drops cephalexin (KEFLEX) capsule 500 mg 500 mg, oral, Every 8 hours, First dose on Thu09/19/24 at 1645, For 48 hours, Indications: Prophylaxis, SurgicalIndications:Prophylaxis, Surgical Given 09/21/2024 8:31 AM WIRE STRAIGHTENING MACHINE OPERATOR 50 0 mg Given 09/21/2024 1:12 AM WIRE STRAIGHTENING MACHINE OPERATOR 500 mg Given 09/20/2024 5:17 PM WIRE STRAIGHTENING MACHINE OPERATOR 500 mg cyclobenzaprine (FLEXERIL) tablet 5 mg 5 mg, oral, 2 times daily PRN, muscle spasms, Starting on Thu09/21/24 at 0847 Given 09/22/2024 8:33 AM WIRE STRAIGHTENING MACHINE OPERATOR 5 mg Given 09/21/2024 9:55 PM WIRE STRAIGHTENING MACHINE OPERATOR 5 mg Given 09/21/2024 9:05 AM WIRE STRAIGHTENING MACHINE OPERATOR 5 mg dextrose 5% and Lactated Ringer's infusion 75 mL/hr, intravenous, Continuous, Starting on Thu07/29/24 at 0415 New Bag 07/29/2024 3:44 AM CDT 75 mL/hr 75 mL/hr diphenhydrAMINE (BENADRYL) tab/cap 25 mg 25 mg, oral, Once, On Thu08/01/24 at 2015, For 1 dose Given 08/01/2024 8:26 PM CDT 25 mg diphenhydrAMINE (BENADRYL) tab/cap 25 mg 25 mg, oral, 4 times daily PRN, itching, headache, Starting on Thu08/02/24 at 0018 Given 08/17/2024 9:30 AM WIRE STRAIGHTENING MACHINE OPERATOR 25 mg Given 08/16/2024 9:16 PM WIRE STRAIGHTENING MACHINE OPERATOR 25 mg Given 08/16/2024 1:19 PM WIRE STRAIGHTENING MACHINE OPERATOR 25 mg diphenhydrAMINE (BENADRYL) tab/cap 25 mg 25 mg, oral, 2 times daily PRN, headache, 3rd line, ok to give with reglan if severe, Starting on Thu08/24/24 at 0856 Given 09/18/2024 12:52 PM WIRE STRAIGHTENING MACHINE OPERATOR 25 mg Given 09/17/2024 9:24 AM WIRE STRAIGHTENING MACHINE OPERATOR 25 mg Given 09/15/2024 9:36 AM WIRE STRAIGHTENING MACHINE OPERATOR 25 mg doxylamine (UNISOM) tablet 25 mg 25 mg, oral, Nightly PRN, sleep, Starting on Thu09/06/24 at 1933 Given 09/18/2024 8:20 PM WIRE STRAIGHTENING MACHINE OPERATOR 25 mg Given 09/17/2024 9:02 PM WIRE STRAIGHTENING MACHINE OPERATOR 25 mg Given 09/16/2024 9:02 PM WIRE STRAIGHTENING MACHINE OPERATOR 25 mg enoxaparin (LOVENOX) syringe 40 mg 40 mg, subcutaneous, Every 12 hours scheduled, First dose on Thu08/16/24 at 0900, Indications: Deep Vein Thrombosis Prevention, On hold since Thu09/19/2024 at 0844 until manually unheldIndications:Deep Vein Thrombosis Prevention Given 09/18/2024 9:11 AM WIRE STRAIGHTENING MACHINE OPERATOR 40 mg Left Lower Abdomen Given 09/17/2024 9:03 PM WIRE STRAIGHTENING MACHINE OPERATOR 40 mg Ri ght Upper Arm Given 09/17/2024 9:24 AM WIRE STRAIGHTENING MACHINE OPERATOR 40 mg Ri ght Upper Arm enoxaparin (LOVENOX) syringe 40 mg 40 mg, subcutaneous, Every 12 hours scheduled, First dose on Thu09/20/24 at 2100, Indications: Deep Vein Thrombosis PreventionIndications:Deep Vein Thrombosis Prevention Given 09/22/2024 8:35 AM WIRE STRAIGHTENING MACHINE OPERATOR 40 mg Left Upper Arm Given 09/21/2024 9:55 PM WIRE STRAIGHTENING MACHINE OPERATOR 40 mg Ri ght Upper Arm Given 09/21/2024 8:31 AM WIRE STRAIGHTENING MACHINE OPERATOR 40 mg Ri ght Upper Arm etonogestreL (NEXPLANON) implant 68 mg 68 mg, subdermal, Once, On Thu09/20/24 at 0715, For 1 dose, Indications: ContraceptionIndications:Pregn harman Contraception Given 09/20/2024 3:45 PM WIRE STRAIGHTENING MACHINE OPERATOR 68 mg Left Upper Arm (Back ) ferrous sulfate tablet 325 mg 325 mg (65 mg of elemental iron), oral, Daily with breakfast, First dose on Thu09/20/24 at 0800, Indications: Iron Deficiency AnemiaIndications:Iron Deficiency Anemia Given 09/22/2024 8:33 AM WIRE STRAIGHTENING MACHINE OPERATOR 325 mg Given 09/21/2024 8:31 AM WIRE STRAIGHTENING MACHINE OPERATOR 325 mg Given 09/20/2024 8:50 AM WIRE STRAIGHTENING MACHINE OPERATOR 325 mg fluticasone propionate (FLONASE) 50 mcg/actuation nasal spray 1 spray 1 spray, each nostril, Daily, First dose on Thu08/19/24 at 1615 Given 09/22/2024 8:33 AM WIRE STRAIGHTENING MACHINE OPERATOR 1 spray Given 09/20/2024 5:19 PM WIRE STRAIGHTENING MACHINE OPERATOR 1 spray Given 09/17/2024 10:16 AM WIRE STRAIGHTENING MACHINE OPERATOR 1 spray guaiFENesin ER (MUCINEX) extended release tablet 600 mg 600 mg, oral, 2 times daily PRN, congestion, Starting on Thu08/19/24 at 0916, Do not crush, chew, cut, dissolve, open or otherwise manipulate tablet/capsule. Given 09/14/2024 12:45 PM WIRE STRAIGHTENING MACHINE OPERATOR 600 mg Given 09/11/2024 11:05 AM WIRE STRAIGHTENING MACHINE OPERATOR 600 mg Given 09/10/2024 12:11 PM WIRE STRAIGHTENING MACHINE OPERATOR 600 mg hydrOXYzine (ATARAX) tablet 25 mg 25 mg, oral, 4 times daily PRN, anxiety, Starting on Thu08/17/24 at 1316 Given 08/17/2024 1:49 PM WIRE STRAIGHTENING MACHINE OPERATOR 25 mg ioversoL (OPTIRAY 350) syringe 100 mL 100 mL, intravenous, Once in imaging, contrast, Starting on Thu08/05/24 at 0050, For 1 dose Contrast Given 08/05/2024 12:52 AM CDT 93 mL labetaloL (NORMODYNE,TRANDATE) tablet 200 mg 200 mg, oral, 3 times daily, First dose on Thu09/06/24 at 1600, L&D Pre-Delivery Given 09/08/2024 5:05 PM WIRE STRAIGHTENING MACHINE OPERATOR 200 mg Given 09/08/2024 8:49 AM WIRE STRAIGHTENING MACHINE OPERATOR 200 mg Given 09/07/2024 9:55 PM WIRE STRAIGHTENING MACHINE OPERATOR 200 mg labetaloL (NORMODYNE,TRANDATE) tablet 200 mg 200 mg, oral, 3 times daily, First dose (after last modification) on Thu09/09/24 at 0000, L&D Pre-Delivery Given 09/13/2024 8:26 PM WIRE STRAIGHTENING MACHINE OPERATOR 200 mg Given 09/13/2024 3:51 PM WIRE STRAIGHTENING MACHINE OPERATOR 200 mg Given 09/13/2024 9:14 AM WIRE STRAIGHTENING MACHINE OPERATOR 200 mg labetaloL (NORMODYNE,TRANDATE) tablet 300 mg 300 mg, oral, 3 times daily, First dose (after last modification) on Thu09/14/24 at 0900, L&D Pre-Delivery Given 09/19/2024 8:53 AM WIRE STRAIGHTENING MACHINE OPERATOR 300 mg Given 09/18/2024 8:16 PM WIRE STRAIGHTENING MACHINE OPERATOR 300 mg Given 09/18/2024 4:17 PM WIRE STRAIGHTENING MACHINE OPERATOR 300 mg labetaloL (NORMODYNE,TRANDATE) tablet 300 mg 300 mg, oral, 3 times daily, First dose on Thu09/19/24 at 1400 Given 09/22/2024 8:35 AM WIRE STRAIGHTENING MACHINE OPERATOR 300 mg Given 09/21/2024 9:55 PM WIRE STRAIGHTENING MACHINE OPERATOR 300 mg Given 09/21/2024 4:15 PM WIRE STRAIGHTENING MACHINE OPERATOR 300 mg lidocaine (LIDODERM) 5 % patch 2 patch 2 patch, transdermal, Administer over 12 Hours, Every 24 hours, First dose on Thu09/21/24 at 0930, Do not cover the holes on the top side of the patch., Apply to affected area: abdomen Medication Applied 09/22/2024 8:33 AM WIRE STRAIGHTENING MACHINE OPERATOR 2 patches Other (Comment) Medication Applied 09/21/2024 9:06 AM WIRE STRAIGHTENING MACHINE OPERATOR 2 patches Other (Comment) lidocaine (PF) (XYLOCAINE) 10 mg/mL (1 %) preservative free injection 50 mg 50 mg (5 mL), subcutaneous, Once, On Thu09/20/24 at 0715, For 1 dose Given 09/20/2024 3:45 PM WIRE STRAIGHTENING MACHINE OPERATOR 50 mg Left Upper Arm magnesium sulfate 20 g/500 mL in water infusion (premix) 2 g/hr (50 mL/hr), intravenous, Continuous, Starting on Thu07/29/24 at 0345, Suspected magnesium toxicity - Stop if maternal respiratory rate less than 12 breaths/minute, apply oximeter and administer O2 at 8-12 LPM per tight face mask to maintain SaO2 95% or more and notify MD., Indications: Pre-EclampsiaIndications:Pre -Eclampsia New Bag 07/29/2024 3:44 AM CDT 2 g/hr 50 mL/hr magnesium sulfate 20 g/500 mL in water infusion (premix) 2 g/hr (50 mL/hr), intravenous, Continuous, Starting on Thu09/19/24 at 1345, Suspected magnesium toxicity - Stop if maternal respiratory rate less than 12 breaths/minute, apply oximeter and administer O2 at 8-12 LPM per tight face mask to maintain SaO2 95% or more and notify , Indications: Pre-EclampsiaIndications:Pre -Eclampsia New Bag 09/20/2024 8:49 AM WIRE STRAIGHTENING MACHINE OPERATOR 2 g/hr 50 mL/hr Rate/Dose Verify 09/20/2024 6:25 AM WIRE STRAIGHTENING MACHINE OPERATOR 2 g/hr 50 mL/h r Rate/Dose Verify 09/20/2024 4:25 AM WIRE STRAIGHTENING MACHINE OPERATOR 2 g/hr 50 mL/h r magnesium sulfate bolus from bag 6 g 6 g, intravenous, Administer over 30 Minutes, Once, On Thu09/19/24 at 1345, For 1 dose, Indications: Pre-EclampsiaIndications:Pre-Eclampsi a Bolus from Bag 09/19/2024 1:33 PM WIRE STRAIGHTENING MACHINE OPERATOR 6 g metoclopramide (REGLAN) tablet 10 mg 10 mg, oral, Once, On Thu08/01/24 at 2015, For 1 dose Given 08/01/2024 8:26 PM CDT 10 mg metoclopramide (REGLAN) tablet 10 mg 10 mg, oral, Every 6 hours, First dose on Thu08/02/24 at 0100, Indications: HeadacheIndications:Headache Given 08/02/2024 2:06 AM CDT 10 mg metoclopramide (REGLAN) tablet 10 mg 10 mg, oral, Every 6 hours PRN, other, HARRY, Starting on Thu08/02/24 at 1915, Indications: HeadacheIndications:Headache Given 08/17/2024 9:30 AM WIRE STRAIGHTENING MACHINE OPERATOR 10 mg Given 08/16/2024 9:16 PM WIRE STRAIGHTENING MACHINE OPERATOR 10 mg Given 08/16/2024 1:19 PM WIRE STRAIGHTENING MACHINE OPERATOR 10 mg metoclopramide (REGLAN) tablet 10 mg 10 mg, oral, Every 6 hours PRN, other, HARRY 2nd line, Starting on Thu08/24/24 at 0856, Indications: HeadacheIndications:Headache Given 09/18/2024 9:53 PM WIRE STRAIGHTENING MACHINE OPERATOR 10 mg Given 09/17/2024 9:24 AM WIRE STRAIGHTENING MACHINE OPERATOR 10 mg Given 09/16/2024 11:35 AM WIRE STRAIGHTENING MACHINE OPERATOR 10 mg metroNIDAZOLE (FLAGYL) tablet 500 mg 500 mg, oral, Every 8 hours, First dose on Thu09/19/24 at 1645, Indications: Prophylaxis, SurgicalIndications:Prophylaxis, Surgical Given 09/22/2024 8:34 AM WIRE STRAIGHTENING MACHINE OPERATOR 500 mg Given 09/22/2024 12:53 AM WIRE STRAIGHTENING MACHINE OPERATOR 500 mg Given 09/21/2024 4:15 PM WIRE STRAIGHTENING MACHINE OPERATOR 500 mg NIFEdipine (PROCARDIA XL/ADALAT CC) extended release tablet 120 mg 120 mg, oral, Daily, First dose on Thu09/03/24 at 0900, Do not crush, chew, cut, dissolve, open or otherwise manipulate tablet/capsule. Given 09/22/2024 8:35 AM WIRE STRAIGHTENING MACHINE OPERATOR 120 mg Given 09/21/2024 8:32 AM WIRE STRAIGHTENING MACHINE OPERATOR 120 mg Given 09/20/2024 8:50 AM WIRE STRAIGHTENING MACHINE OPERATOR 120 mg NIFEdipine (PROCARDIA XL/ADALAT CC) extended release tablet 30 mg 30 mg, oral, Daily, First dose on Thu07/29/24 at 1115, Do not crush, chew, cut, dissolve, open or otherwise manipulate tablet/capsule. Given 07/30/2024 8:21 AM CDT 30 mg Given 07/29/2024 12:14 PM CDT 30 mg NIFEdipine (PROCARDIA XL/ADALAT CC) extended release tablet 30 mg 30 mg, oral, Once, On Thu09/02/24 at 1130, For 1 dose, Do not crush, chew, cut, dissolve, open or otherwise manipulate tablet/capsule. 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 Given 07/31/2024 9:42 AM CDT 60 mg NIFEdipine (PROCARDIA XL/ADALAT CC) extended release tablet 90 mg 90 mg, oral, Daily, First dose (after last modification) on Thu08/01/24 at 0900, Do not crush, chew, cut, dissolve, open or otherwise manipulate tablet/capsule. Given 09/02/2024 8:39 AM WIRE STRAIGHTENING MACHINE OPERATOR 90 mg Given 09/01/2024 10:06 AM WIRE STRAIGHTENING MACHINE OPERATOR 90 mg Given 08/31/2024 9:15 AM WIRE STRAIGHTENING MACHINE OPERATOR 90 mg ondansetron (ZOFRAN) injection 4 mg 4 mg, intravenous, Administer over 2 Minutes, Every 6 hours PRN, nausea, vomiting, if not tolerating PO, Starting on Thu09/20/24 at 1634, Start in 24 hours after Anesthesia no longer covering., Indications: Nausea and VomitingIndications:Nausea and Vomiting ondansetron ODT (ZOFRAN-ODT) disintegrating tablet 4 mg 4 mg, oral, Every 6 hours PRN, nausea, vomiting, Starting on Thu09/20/24 at 1634, Start in 24 hours after Anesthesia no longer covering., Indications: Nausea and VomitingIndications:Nausea and Vomiting oxyCODONE (ROXICODONE) tablet 5 mg 5 mg, oral, Every 4 hours PRN, 1st line for pain, Starting on Thu09/19/24 at 1634, For 24 hours, When able to tolerate PO. Anesthesia orders for the first 24 hours ., Indications: PainIndications:Pain Given 09/20/2024 12:56 PM WIRE STRAIGHTENING MACHINE OPERATOR 5 mg Given 09/20/2024 4:25 AM WIRE STRAIGHTENING MACHINE OPERATOR 5 mg Given 09/19/2024 9:35 PM WIRE STRAIGHTENING MACHINE OPERATOR 5 mg oxyCODONE (ROXICODONE) tablet 5 mg 5 mg, oral, Every 4 hours PRN, breakthrough pain, Starting on Thu09/20/24 at 1634, May administer 1 hour after 1st line agent for uncontrolled or increasing pain. Start in 24 hours after Anesthesia no longer covering., Indications: PainIndications:Pain Given 09/22/2024 9:58 AM WIRE STRAIGHTENING MACHINE OPERATOR 5 mg Given 09/22/2024 6:12 AM WIRE STRAIGHTENING MACHINE OPERATOR 5 mg Given 09/22/2024 12:53 AM WIRE STRAIGHTENING MACHINE OPERATOR 5 mg PNV with [id number] tablet 1 tablet 1 tablet (1 tablet/capsule), oral, Daily, First dose on Thu07/29/24 at 0900 Given 09/18/2024 9:08 AM WIRE STRAIGHTENING MACHINE OPERATOR 1 tablet Given 09/17/2024 9:24 AM WIRE STRAIGHTENING MACHINE OPERATOR 1 tablet Given 09/16/2024 9:41 AM WIRE STRAIGHTENING MACHINE OPERATOR 1 tablet PNV with [id number] tablet 1 tablet 1 tablet, oral, Daily, First dose on Thu09/19/24 at 1715, Begin when normal bowel activity resumes., Indications: Vitamin Deficiency PreventionIndications:Vitamin Deficiency Prevention Given 09/22/2024 8:33 AM WIRE STRAIGHTENING MACHINE OPERATOR 1 tablet Given 09/21/2024 8:31 AM WIRE STRAIGHTENING MACHINE OPERATOR 1 tablet Given 09/20/2024 8:50 AM WIRE STRAIGHTENING MACHINE OPERATOR 1 tablet polyethylene glycol (MIRALAX) packet 17 g 17 g, oral, 2 times daily PRN, constipation, Starting on Thu07/31/24 at 0030, 1st line Given 08/30/2024 9:06 PM WIRE STRAIGHTENING MACHINE OPERATOR 1 7 g Given 08/25/2024 8:35 PM WIRE STRAIGHTENING MACHINE OPERATOR 17 g Given 08/14/2024 10:46 AM WIRE STRAIGHTENING MACHINE OPERATOR 17 g polyethylene glycol (MIRALAX) packet 17 g 17 g, oral, 2 times daily, First dose (after last modification) on Thu08/30/24 at 2145, 1st line Given 09/18/2024 5:21 PM WIRE STRAIGHTENING MACHINE OPERATOR 17 g Given 09/17/2024 9:24 AM WIRE STRAIGHTENING MACHINE OPERATOR 17 g Given 09/16/2024 9:41 AM WIRE STRAIGHTENING MACHINE OPERATOR 17 g potassium chloride ER (KLOR-CON) extended release tablet 30 mEq 30 mEq, oral, Every 4 hours, First dose on Thu07/29/24 at 0545, For 2 doses, Total dose = 60 mEq Tablets should not be crushed, chewed, dissolved, or otherwise manipulated. Capsules may be opened and sprinkled on a spoonful of applesauce or pudding, but the contents of the capsule should not be crushed or chewed. Given 07/29/2024 9:18 AM CDT 30 mEq Given 07/29/2024 6:07 AM CDT 30 mEq prochlorperazine (COMPAZINE) injection 10 mg 10 mg, intravenous, Administer over 2 Minutes, Every 6 hours PRN, nausea, vomiting, Starting on Thu07/29/24 at 1506, For 1 dose Given 07/29/2024 3:09 PM CDT 10 mg prochlorperazine (COMPAZINE) tablet 10 mg 10 mg, oral, Once, On Thu07/29/24 at 0400, For 1 dose Given 07/29/2024 3:29 AM CDT 10 mg prochlorperazine (COMPAZINE) tablet 10 mg 10 mg, oral, Once, On Thu08/01/24 at 0815, For 1 dose Given 08/01/2024 8:05 AM CDT 10 mg progesterone (PROMETRIUM) capsule 200 mg 200 mg, oral, Daily, First dose on Thu07/29/24 at 0900, For 349 days Given 09/19/2024 8:53 AM WIRE STRAIGHTENING MACHINE OPERATOR 200 mg Given 09/18/2024 9:09 AM WIRE STRAIGHTENING MACHINE OPERATOR 200 mg Given 09/17/2024 9:24 AM WIRE STRAIGHTENING MACHINE OPERATOR 200 mg Rho(D) immune globulin (HyperRHO S/D, RhoGAM) injection 300 mcg 300 mcg, intramuscular, Once, On Thu08/01/24 at 0745, For 1 dose, Refrigerate, Indications: Prevention of Alloimmunization at 28 Weeks Gestation, 27 weeks due to concern for early delivery for maternal statusIndications:Prevention of Alloimmunization at 28 Weeks Gestation,27 weeks due to concern for early delivery for maternal status Given 08/01/2024 7:51 AM CDT 300 mcg Right Dorsogluteal/Buttock Rho(D) immune globulin (HyperRHO S/D, RhoGAM) injection 300 mcg 300 mcg, intramuscular, Once, On Thu09/20/24 at 0730, For 1 dose, Refrigerate, Indications: Prevention of Rhesus Isoimmunization affecting PregnancyIndications:Preventio n of Rhesus Isoimmunization affecting Given 09/20/2024 12:54 PM WIRE STRAIGHTENING MACHINE OPERATOR 300 mcg Left Deltoid senna (SENOKOT) tablet 1 tablet 1 tablet, oral, 2 times daily PRN, constipation, Starting on Thu07/31/24 at 0030, 2nd line Given 07/31/2024 9:42 AM CDT 1 tablet senna-docusate (PERICOLACE) 8.6-50 mg per tablet 1 tablet 1 tablet, oral, Nightly, First dose on Thu08/30/24 at 2145 Given 09/18/2024 8:16 PM WIRE STRAIGHTENING MACHINE OPERATOR 1 tablet Given 09/17/2024 9:02 PM WIRE STRAIGHTENING MACHINE OPERATOR 1 tablet Given 09/16/2024 9:02 PM WIRE STRAIGHTENING MACHINE OPERATOR 1 tablet senna-docusate (PERICOLACE) 8.6-50 mg per tablet 1 tablet 1 tablet, oral, 2 times daily, First dose on Thu09/19/24 at 2100, Hold if diarrhea., Indications: constipationIndications:constipation Given 09/21/2024 8:31 AM WIRE STRAIGHTENING MACHINE OPERATOR 1 table t Given 09/20/2024 8:33 PM WIRE STRAIGHTENING MACHINE OPERATOR 1 tablet Given 09/20/2024 8:50 AM WIRE STRAIGHTENING MACHINE OPERATOR 1 tablet simethicone (MYLICON) chewable tablet 160 mg 160 mg, oral, 4 times daily PRN (after meals, bedtime), flatulence, Starting on Thu09/20/24 at 2025 Given 09/20/2024 9:38 PM WIRE STRAIGHTENING MACHINE OPERATOR 160 mg sodium chloride (OCEAN) 0.65 % nasal spray 1 spray 1 spray, each nostril, Every 1 hour PRN, congestion, rhinitis, Starting on Thu08/17/24 at 0929 Given 09/04/2024 5:37 PM WIRE STRAIGHTENING MACHINE OPERATOR 1 spray Given 08/30/2024 12:41 PM WIRE STRAIGHTENING MACHINE OPERATOR 1 spray Given 08/27/2024 6:31 PM WIRE STRAIGHTENING MACHINE OPERATOR 1 spray sodium chloride 0.9% flush 0.5-20 mL 0.5-20 mL, intra-catheter, Every 8 hours scheduled, First dose on Thu07/29/24 at 0600, L&D Pre-Delivery, Flush volume based on line type and size. Given 09/18/2024 8:16 PM WIRE STRAIGHTENING MACHINE OPERATOR 10 mL Given 09/17/2024 9:50 PM WIRE STRAIGHTENING MACHINE OPERATOR 10 mL Given 09/17/2024 6:47 PM WIRE STRAIGHTENING MACHINE OPERATOR 10 mL sodium chloride 0.9% flush 0.5-20 mL 0.5-20 mL, intra-catheter, As needed, line care, Starting on Thu07/29/24 at 0302, L&D Pre-Delivery, Flush volume based on line type and size. Flush before and after each use. Given 09/14/2024 9:26 AM WIRE STRAIGHTENING MACHINE OPERATOR 1 0 mL Given 09/13/2024 9:15 AM WIRE STRAIGHTENING MACHINE OPERATOR 10 mL Given 09/12/2024 9:04 AM WIRE STRAIGHTENING MACHINE OPERATOR 10 mL sodium chloride 0.9% flush 0.5-20 mL 0.5-20 mL, intra-catheter, Every 8 hours scheduled (alternate), First dose on Thu09/19/24 at 1715, Flush volume based on line type and size. Given 09/21/2024 8:34 AM WIRE STRAIGHTENING MACHINE OPERATOR 10 mL Given 09/20/2024 11:46 PM WIRE STRAIGHTENING MACHINE OPERATOR 10 mL Given 09/20/2024 4:00 PM WIRE STRAIGHTENING MACHINE OPERATOR 5 mL sodium chloride 0.9% infusion 50 mL/hr, intravenous, Continuous, Starting on Thu09/19/24 at 1845 Rate/Dose Verify 09/20/2024 6:25 AM WIRE STRAIGHTENING MACHINE OPERATOR 50 mL/hr 50 mL/hr New Bag 09/19/2024 6:54 PM WIRE STRAIGHTENING MACHINE OPERATOR 50 mL/hr 50 mL/hr documented in this encounter Discontinued Medications Medication Sig Discontinue Reason Start Date End Da te labetaloL (NORMODYNE,TRANDATE) 300 mg tablet Take 1 tablet (300 mg total) by mouth 3 (three) times a day 09/22/2024 09/22/2024 aspirin 81 mg chewable tablet Take 1 tablet (81 mg total) by mouth daily Stop Taking at Discharge 04/15/2024 09/22/2024 metoclopramide (REGLAN) 10 mg tablet Take 1 tablet (10 mg total) by mouth 4 (four) times a day as needed (nausea) Stop Taking at Discharge 05/31/2024 09/22/2024 cholecalciferol (VITAMIN D-3) 2000 unit tablet Take 1 tablet (2,000 Units total) by mouth daily Stop Taking at Discharge 07/12/2024 09/22/2024 progesterone (PROMETRIUM) 200 mg capsule Take 1 capsule (200 mg total) by mouth daily Stop Taking at Discharge 07/13/2024 09/22/2024 ibuprofen (ADVIL,MOTRIN) 400 mg tablet Take 1 tablet by mouth every 6 hours every other day on odd calendar days Stop Taking at Discharge 07/13/2024 09/22/2024 documented as of this encounter Active and Recently Administered Medications Times are shown in WIRE STRAIGHTENING MACHINE OPERATOR. Scheduled Medication Order 09/20/2024 09/21/2024 09/22/2024 acetaminophen (TYLENOL) tablet 1,000 mg (COMPLETED) 1,000 mg, oral, Every 6 hours scheduled, First dose on Thu09/19/24 at 1800, For 24 hours, When able to tolerate PO. Max 4 doses. Anesthesia orders for the first 24 hours ., Indications: Pain 0028 (Given - Provider: Blessing Dean RN)0718 (Given - Provider: Blessing Dean RN)1256 (Given - Provider: Arianne Lee RN) cephalexin (KEFLEX) capsule 500 mg () 500 mg, oral, Every 8 hours, First dose on Thu09/19/24 at 1645, For 48 hours, Indications: Prophylaxis, Surgical 0028 (Given - Provider: Blessing Dean RN)0850 (Given - Provider: Arianne Lee RN)0851 (Not Given - Provider: Arianne Lee RN - Reason: Other - Comment: duplicate)1717 (Given - Provider: Arianne Lee RN) 0112 (Given - Provider: Soumya Teixeira RN)0831 (Given - Provider: Nancy Crooks RN) enoxaparin (LOVENOX) syringe 40 mg 40 mg, subcutaneous, Every 12 hours scheduled, First dose on Thu09/20/24 at 2100, Indications: Deep Vein Thrombosis Prevention 2033 (Given - Provider: Soumya Teixeira, KRYSTEN) 0831 (Given - Provider: Nancy Crooks RN)215 (Given - Provider: Soumya Teixeira RN) 0835 (Given - Provider: Nancy Crooks RN) etonogestreL (NEXPLANON) implant 68 mg (COMPLETED)(Linked Group 1) 68 mg, subdermal, Once, On Thu09/20/24 at 0715, For 1 dose, Indications: Contraception 1545 (Given - Provider: Arianne Lee RN - Comment: placed per Dr Anamika Alberto) ferrous sulfate tablet 325 mg 325 mg (65 mg of elemental iron), oral, Daily with breakfast, First dose on Thu09/20/24 at 0800, Indications: Iron Deficiency Anemia 0850 (Given - Provider: Arianne Lee RN) 0831 (Given - Provider: Nancy Crooks RN) 0833 (Given - Provider: Nancy Crooks RN) fluticasone propionate (FLONASE) 50 mcg/actuation nasal spray 1 spray 1 spray, each nostril, Daily, First dose on Thu08/19/24 at 1615 1719 (Given - Provider: Arianne Lee RN) 0831 (Not Given - Provider: Nancy Crooks RN - Reason: Patient/family refused) 0833 (Given - Provider: Nancy Crooks RN) labetaloL (NORMODYNE,TRANDATE) tablet 300 mg 300 mg, oral, 3 times daily, First dose on Thu09/19/24 at 1400 0849 (Given - Provider: Arianne Lee RN)1716 (Given - Provider: Arianne Lee RN)2033 (Given - Provider: Soumya Teixeira, KRYSTEN) 0832 (Given - Provider: Nancy Crooks RN)1615 (Given - Provider: Nancy Crooks RN)2155 (Given - Provider: Soumya Teixeira RN) 0835 (Given - Provider: Nancy Crooks RN) lidocaine (LIDODERM) 5 % patch 2 patch 2 patch, transdermal, Administer over 12 Hours, Every 24 hours, First dose on Thu09/21/24 at 0930, Do not cover the holes on the top side of the patch., Apply to affected area: abdomen 09 (Medication Applied - Provider: Nancy Crooks RN - Comment: abdomen)2156 (Medication Removed - Provider: Soumya Teixeira RN) 0833 (Medication Applied - Provider: Nancy Crooks RN - Comment: abdomen)1126 (Due: Medication Removed - Provider: Automatic Discharge Provider - Comment: Time automatically adjusted from order being discontinued) lidocaine (PF) (XYLOCAINE) 10 mg/mL (1 %) preservative free injection 50 mg (COMPLETED)(Linked Group 1) 50 mg (5 mL), subcutaneous, Once, On Thu09/20/24 at 0715, For 1 dose 1545 (Given - Provider: Arianne Lee RN - Comment: Given per MD Dorado) metroNIDAZOLE (FLAGYL) tablet 500 mg 500 mg, oral, Every 8 hours, First dose on Thu09/19/24 at 1645, Indications: Prophylaxis, Surgical 0028 (Given - Provider: Blessing Dean RN)0850 (Given - Provider: Arianne Lee RN)1716 (Given - Provider: Arianne Lee RN) 0112 (Given - Provider: Soumya Teixeira RN)0831 (Given - Provider: Nancy Crooks RN)1615 (Given - Provider: Nancy Crooks RN) 0053 (Given - Provider: Soumya Teixeira, KRYSTEN)0834 (Given - Provider: Nancy Crooks RN) NIFEdipine (PROCARDIA XL/ADALAT CC) extended release tablet 120 mg 120 mg, oral, Daily, First dose on Thu09/03/24 at 0900, Do not crush, chew, cut, dissolve, open or otherwise manipulate tablet/capsule. 0850 (Given - Provider: Arianne Lee RN) 0832 (Given - Provider: Nancy Crooks RN) 0835 (Given - Provider: Nancy Crooks, KRYSTEN) PNV with [id number] tablet 1 tablet 1 tablet, oral, Daily, First dose on Thu09/19/24 at 1715, Begin when normal bowel activity resumes., Indications: Vitamin Deficiency Prevention 0850 (Given - Provider: Arianne Lee RN) 0831 (Given - Provider: Nancy Crooks, RN) 0833 (Given - Provider: Nancy Crooks RN) polyethylene glycol (MIRALAX) packet 17 g 17 g, oral, Daily, First dose on Thu09/19/24 at 1715, Hold if diarrhea., Indications: constipation 0728 (Not Given - Provider: Arianne Lee RN - Reason: Order parameters not met) 0834 (Not Given - Provider: Nancy Crooks RN - Reason: Patient/family refused) 0833 (Not Given - Provider: Nancy Crooks RN - Reason: Patient/family refused) Rho(D) immune globulin (HyperRHO S/D, RhoGAM) injection 300 mcg (COMPLETED) 300 mcg, intramuscular, Once, On Thu09/20/24 at 0730, For 1 dose, Refrigerate, Indications: Prevention of Rhesus Isoimmunization affecting 1254 (Given - Provider: Arianne Lee RN) senna-docusate (PERICOLACE) 8.6-50 mg per tablet 1 tablet 1 tablet, oral, 2 times daily, First dose on Thu09/19/24 at 2100, Hold if diarrhea., Indications: constipation 0850 (Given - Provider: Arianne Lee RN)2032 (Given - Provider: Soumya Teixeira, KRYSTEN) 0831 (Given - Provider: Nancy Crooks, KRYSTEN)2154 (Not Given - Provider: Souyma Teixeira, KRYSTEN - Reason: Patient/family refused) 0833 (Not Given - Provider: Nancy Crooks RN - Reason: Patient/family refused) sodium chloride 0.9% flush 0.5-20 mL 0.5-20 mL, intra-catheter, Every 8 hours scheduled (alternate), First dose on Thu09/19/24 at 1715, Flush volume based on line type and size. 0000 (Due)0851 (Given - Provider: Arianne Lee RN)1600 (Given - Provider: Arianne Lee RN)2346 (Given - Provider: Soumya Teixeira, KRYSTEN) 0834 (Given - Provider: Nancy Crooks RN)1507 (Not Given - Provider: Nancy Crooks RN - Reason: Patient not available) 0136 (Not Given - Provider: Soumya Teixeira RN - Reason: Loss of IV access)0833 (Not Given - Provider: Nancy Crooks RN - Reason: Loss of IV access) Continuous Medication Order 09/20/2024 09/21/2024 09/22/2024 magnesium sulfate 20 g/500 mL in water infusion (premix)(Linked Group 2) 2 g/hr (50 mL/hr), intravenous, Continuous, Starting on Thu09/19/24 at 1345, Suspected magnesium toxicity - Stop if maternal respiratory rate less than 12 breaths/minute, apply oximeter and administer O2 at 8-12 LPM per tight face mask to maintain SaO2 95% or more and notify MD., Indications: Pre-Eclampsia 0425 (Rate/Dose Verify - Provider: Blessing Dean RN)0625 (Rate/Dose Verify - Provider: Blessing Dean RN)0849 (New Bag - Provider: Arianne Lee RN) 1527 (Due: Stopped) sodium chloride 0.9% infusion (CANCELED) 50 mL/hr, intravenous, Continuous, Starting on Thu09/19/24 at 1845 0625 (Rate/Dose Verify - Provider: Blessing Dean RN) 0847 (Due: Stopped - Provider: Ana Gauthier NP) PRN Medication Order 09/20/2024 09/21/2024 09/22/2024 acetaminophen (TYLENOL) tablet 1,000 mg 1,000 mg, oral, Every 6 hours PRN, 1st line for pain, Starting on Thu09/20/24 at 1800, Start in 24 hours after Anesthesia no longer covering., Indications: Pain 1717 (Given - Provider: Arianne Lee RN)2345 (Given - Provider: Soumya Teixeira, KRYSTEN) 0605 (Given - Provider: Soumya Teixeira RN)1212 (Given - Provider: Nancy Crooks RN)1808 (Given - Provider: Nancy Crooks RN) 0053 (Given - Provider: Soumya Teixeira RN)0833 (Given - Provider: Nancy Crooks RN) calcium carbonate (TUMS) chewable tablet 500 mg 500 mg, oral, 4 times daily PRN, heartburn, Starting on Thu09/19/24 at 1634, Indications: Dyspepsia 2033 (Given - Provider: Soumya Teixeira RN) calcium gluconate 100 mg/mL (10%) injection 1 g(Linked Group 2) 1 g, intravenous, Administer over 3 Minutes, Once as needed, magnesium toxicity, Starting on Thu09/19/24 at 1311, For 1 dose, Administer over 3 minutes for magnesium toxicity which may include respiratory rate 12 or less/minute, decreased level of consciousness, absence of reflexes. Notify MD., Indications: hypermagnesemia cyclobenzaprine (FLEXERIL) tablet 5 mg 5 mg, oral, 2 times daily PRN, muscle spasms, Starting on Thu09/21/24 at 0847 0905 (Given - Provider: Nancy Crooks RN)2155 (Given - Provider: Soumya Teixeira RN) 0833 (Given - Provider: Nancy Crooks RN) ibuprofen (ADVIL,MOTRIN) tablet 600 mg 600 mg, oral, Every 6 hours PRN, other, cramping, Starting on Thu09/20/24 at 1405, Start in 24 hours after Anesthesia no longer covering., Indications: Cramps 1630 (Not Given - Provider: Arianne Lee RN - Reason: Order parameters not met) vhwtqwy-cdtxc-brgpxnr (MMR) 1,000-12,500 TCID50/0.5 mL live vaccine 0.5 mL 0.5 mL, subcutaneous, During hospitalization, immunization, Starting on Thu09/19/24 at 1634, For 1 dose, If not rubella immune. Warning: This is a live or live attenuated vaccine. Refrigerate. Two-component vaccine. Must be reconstituted with diluent provided. Document the NDC, Lot number, expiration date from the DRY POWDER vial component at administration., Indications: Zeymfzp-Trcmp-Varrqlg Vaccination ondansetron (ZOFRAN) injection 4 mg(Linked Group 3) 4 mg, intravenous, Administer over 2 Minutes, Every 6 hours PRN, nausea, vomiting, if not tolerating PO, Starting on Thu09/20/24 at 1634, Start in 24 hours after Anesthesia no longer covering., Indications: Nausea and Vomiting ondansetron ODT (ZOFRAN-ODT) disintegrating tablet 4 mg(Linked Group 3) 4 mg, oral, Every 6 hours PRN, nausea, vomiting, Starting on Thu09/20/24 at 1634, Start in 24 hours after Anesthesia no longer covering., Indications: Nausea and Vomiting oxyCODONE (ROXICODONE) tablet 5 mg () 5 mg, oral, Every 4 hours PRN, 1st line for pain, Starting on Thu09/19/24 at 1634, For 24 hours, When able to tolerate PO. Anesthesia orders for the first 24 hours ., Indications: Pain 0425 (Given - Provider: Blessing Dean RN)1256 (Given - Provider: Arianne Lee RN) oxyCODONE (ROXICODONE) tablet 5 mg 5 mg, oral, Every 4 hours PRN, breakthrough pain, Starting on Thu09/20/24 at 1634, May administer 1 hour after 1st line agent for uncontrolled or increasing pain. Start in 24 hours after Anesthesia no longer covering., Indications: Pain 1716 (Given - Provider: Arianne Lee RN)2138 (Given - Provider: Soumya Teixeira RN) 0112 (Given - Provider: Soumya Teixeira RN)0500 (Given - Provider: Suomya Teixeira RN)0834 (Given - Provider: Nancy Crooks RN)1212 (Given - Provider: Nancy Crooks RN)1615 (Given - Provider: Nancy Crooks RN)2055 (Given - Provider: Polly Olivarez RN) 0053 (Given - Provider: Soumya Teixeira RN)0612 (Given - Provider: Soumya Teixeira RN)0958 (Given - Provider: Nancy Crooks RN) simethicone (MYLICON) chewable tablet 160 mg 160 mg, oral, 4 times daily PRN (after meals, bedtime), flatulence, Starting on Thu09/20/24 at 2024 2137 (Given - Provider: Soumya Teixeira, KRYSTEN) sodium chloride 0.9% flush 0.5-20 mL 0.5-20 mL, intra-catheter, As needed, line care, Starting on Thu09/19/24 at 1634, Flush volume based on line type and size. Flush before and after each use. Linked Groups Order Group 1: etonogestreL (NEXPLANON) implant 68 mg (COMPLETED)Jump to med 68 mg, subdermal, Once, On Thu09/20/24 at 0715, For 1 dose, Indications: Contraception And lidocaine (PF) (XYLOCAINE) 10 mg/mL (1 %) preservative free injection 50 mg (COMPLETED)Jump to med 50 mg (5 mL), subcutaneous, Once, On Thu09/20/24 at 0715, For 1 dose Group 2: magnesium sulfate bolus from bag 6 g (COMPLETED) 6 g, intravenous, Administer over 30 Minutes, Once, On Thu09/19/24 at 1345, For 1 dose, Indications: Pre-Eclampsia And magnesium sulfate 20 g/500 mL in water infusion (premix)Jump to med 2 g/hr (50 mL/hr), intravenous, Continuous, Starting on Thu09/19/24 at 1345, Suspected magnesium toxicity - Stop if maternal respiratory rate less than 12 breaths/minute, apply oximeter and administer O2 at 8-12 LPM per tight face mask to maintain SaO2 95% or more and notify MD., Indications: Pre-Eclampsia And calcium gluconate 100 mg/mL (10%) injection 1 gJump to med 1 g, intravenous, Administer over 3 Minutes, Once as needed, magnesium toxicity, Starting on Thu09/19/24 at 1311, For 1 dose, Administer over 3 minutes for magnesium toxicity which may include respiratory rate 12 or less/minute, decreased level of consciousness, absence of reflexes. Notify MD., Indications: hypermagnesemia And Magnesium (CANCELED) As needed/STAT, Starting on Thu09/19/24 at 1311, Until Specified, Specimen Types - Blood;, Suspected magnesium toxicity Group 3: ondansetron ODT (ZOFRAN-ODT) disintegrating tablet 4 mgJump to med 4 mg, oral, Every 6 hours PRN, nausea, vomiting, Starting on Thu09/20/24 at 1634, Start in 24 hours after Anesthesia no longer covering., Indications: Nausea and Vomiting Or ondansetron (ZOFRAN) injection 4 mgJump to med 4 mg, intravenous, Administer over 2 Minutes, Every 6 hours PRN, nausea, vomiting, if not tolerating PO, Starting on Thu09/20/24 at 1634, Start in 24 hours after Anesthesia no longer covering., Indications: Nausea and Vomiting documented in this encounter Orders Medications Ordered That Missael ht Not Have Been Administered Count Last Ordered Date First Ordered Date calcium gluconate 100 mg/mL (10%) injection 1 g 2 09/19/2024 07/29/2024 ceFAZolin (ANCEF) 3,000 mg/3 0 mL in sterile water (premix) 3,000 mg 1 09/19/2024 HYDROmorphone (DILAUDID) injection 0.2 mg 1 09/19/2024 ibuprofen (ADVIL,MOTRIN) tablet 600 mg 1 qxostxy-vjepv-dqrwuyg (MMR) 1,000-12,500 TCID50/0.5 mL live vaccine 0.5 mL 1 09/19/2024 naloxone (NARCAN) 0.4 mg/mL injection 0.04-0.4 mg 1 09/19/2024 ondansetron (ZOFRAN) injection 4 mg 2 09/19 ondansetron ODT (ZOFRAN-ODT) disintegrating tablet 4 mg 1 09/19/2024 polyethylene glycol (MIRALAX) packet 17 g 1 09/19/2024 sodium chloride 0.9% bolus 1,000 mL 1 09/19 sodium chloride 0.9% flush 0.5-20 mL 3 09/04 sodium chloride 0.9% irrigation 1 sterile water irrigation 1 09/19/2024 diphenhydrAMINE (BENADRYL) tab/cap 25 mg 2 09/15/2024 08/17/2024 NIFEdipine (PROCARDIA XL/ADA LAT CC) extended release tablet 30 mg 1 09/02/2024 bisacodyL (DULCOLAX) suppository 10 mg 1 hydrOXYzine (ATARAX) tablet 25 mg 1 024 Carrier Fluids for Secondary Infusion - 0.9% Sodium Chloride 1 07/29/2024 EKG Orders Without Results Count Last Ordered D ate First Ordered Date ECG 12-LEAD 1 08/22/2024 General Supply Count Last Ordered Date First Or dered Date AQUA K PAD EQUIPMENT 1 08/13/2024 Immunization/Injection Count Last Ordered Date First Ordered Date RSV VACCINE, BIVALENT, RSVPREF (ABRYSVO) 1 09/05/2024 Consult Count Last Ordered Date First Orde red Date IP CONSULT TO PEDIATRIC CARDIOLOGY 1 2023 IP CONSULT TO NEONATOLOGY 1 07/29/2024 Admission Count Last Ordered Date First Orde red Date ADMIT TO L&D INPATIENT 1 07/29/2024 Transfer Count Last Ordered Date First Orde red Date TRANSFER PATIENT TO NEW UNIT 2 09/19/2024 Discharge Count Last Ordered Date First Orde red Date DISCHARGE PATIENT 1 09/22/2024 CORE MEASURES Count Last Ordered Date First Ord ered Date REASON FOR NO VTE PROPHYLAXIS AT ADMISSION 1 07/29/2024 documented in this encounter Care Teams Plastic Finisher Relationship Specialty Start Date End Date No, Physician PCP - General 02/25/24 documented as of this encounter
--- OUTSIDE RECORDS SUMMARY | 2024-10-06 03:41 | XMS_ITS | Encounter Summary ---
Author Organization [facility] Healthcare Address [address] [place] [address] Care Team Providers Care Corporate Attorney Name Role Phone No, Physician Primary Care Provider [phone] Reason for Visit * Reason Onset Date Comments admission 08/03/2024 Encounter Details Date Type Department Care Team (Late st Contact Info) Description 08/03/2024 Telephone [place] [facility] [address] [place] [address] Dia Mantilla MD [address] [place] [address] [address] [place] [address] admission Social History Tobacco Use Types Packs/Day Years Used Date Smoking Tobacco: Never Smokeless Tobacco: Never [facility] Utilities Answer Date Recorded In the past 12 months has [facility] electric, gas, oil, or water company [...] How often do you attend chur or mosque services? Never 07/29/2024 Do you belong to any clubs o r organizations such as adventist groups, unions, fraternal or athletic groups, or [...] staff should administer the PHQ-9) 0 07/28/2024 [facility] - Occupational Stress [...] things needed for daily living? No 07/29/2024 [place] Depression Scale Answer Date Recorded [place] Depression Scale Total 8 07/12/2024 The thought [...] any time in the past 12 m onths, were you homeless or living in a mcfp (including now)? No 07/29/2024 Personal Safety Answer Date Recorded Have you ever been in or are you currently in a harmful physical or emotional relationship or is someone making you feel afraid or unsafe? Denies 07/29/2024 Comments Yes Sex and Gender Information Value Date Recorded Sex Assigned at Not on file Legal Sex Female 2:19 AM FAMILY ASSISTANT Gender Identity Not on file Sexual Orientation Not on file documented as of this encounter Miscellaneous Notes * Telephone Encounter - Beata Joy RN - 08/03/2024 9:14 AM CDT [phone] Dr. Gisell Simeon from [facility] called to notify Dr. Mantilla that patient has been admitted to [facility] forPre- Eclampsia. Patient is currently 27.2 weeks with [place]/Di twins. She stated that patient will be admitted and remain in the hospital with them until delivery. Peds will also be notified due to baby A having aortic dilation. GITA Noel, RN documented in this encounter Plan of Treatment Not on file documented as of this encounter Visit Diagnoses Not on filedocumented in this encounter Care Teams Corporate Attorney Relationship Specialty Start Date End Date No, Physician PCP - General 02/25/24 documented as of this encounter
--- OUTSIDE RECORDS SUMMARY | 2024-10-06 03:41 | XMS_ITS | Encounter Summary ---
Author Organization [facility] Healthcare Address [address] [place] [address] Care Team Providers Care Cereal Maker Name Role Phone No, Physician Primary Care Provider Reason for Visit * Auth/Cert (Routine) Specialty Diagnoses / Procedures Referred By Contac t Referred To Contact Diagnoses Preeclampsia, unspecified trimester Hypertension Procedures N/A Referral ID Status Reason Start Date Expiration Date Visits Re quested Visits Authorized [id number] 1 1 Encounter Details Date Type Department Care Team (Late st Contact Info) Description 08/24/2024 12:30 PM GUM ROLLING MACHINE TENDER Ancillary Procedure [address] [place] [address] Social History Tobacco Use Types Packs/Day Years Used Date Smoking Tobacco: Never Smokeless Tobacco: Never [facility] Utilities Answer Date Recorded In the past 12 months has e electric, gas, oil, or water [employer] threatened to shut off services in your [...] often do you attend chur ch or orthodoxy services? Never 07/29/2024 Do you belong to any clubs o r organizations such as worship groups, unions, fraternal or athletic groups, or [...] staff should administer the PHQ-9) 0 07/28/2024 [facility] - Occupational Stress Questionnaire Answer Date [...] things needed for daily living? No 07/29/2024 [place] Depression Scale Answer Date Recorded [place] Depression Scale Total 8 07/12/2024 The thought [...] any time in the past 12 m [facility], were you homeless or living in a fci (including now)? No 07/29/2024 Personal Safety Answer Date Recorded Have you ever been in or are you currently in a harmful physical or emotional relationship or is someone making you feel afraid or unsafe? Denies 07/29/2024 Comments Yes Sex and Gender Information Value Date Recorded Sex Assigned at Not on file Legal Sex Female 2:19 AM GUM ROLLING MACHINE TENDER Gender Identity Not on file Sexual Orientation Not on file documented as of this encounter Plan of Treatment Not on file documented as of this encounter Procedures Procedure Name Priority Date/Time Associated Diagnosis Comments US OB FOLLOW UP IP Routine 08/24/2024 9:37 AM GUM ROLLING MACHINE TENDER documented in this encounter Results * US Ob Follow Up (08/24/2024 9:37 AM GUM ROLLING MACHINE TENDER) Fetus# Fetus1 VIEWPOINT Estimated Weight 1,348 g&grams VIEWPOINT Placenta Details anterior VIEWPOINT Presentation Vertex; Maternal right- low VIEWPOINT Fetus# Fetus2 VIEWPOINT Estimated Weight 1,784 g&grams VIEWPOINT Placenta Details anterior VIEWPOINT Presentation Vertex; Maternal left- high (presenting) VIEWPOINT Anatomical Region Laterality Modality Abdomen N/A Ultrasound 08/24/2024 9:37 AM GUM ROLLING MACHINE TENDER Impressions 08/24/2024 2:06 PM GUM ROLLING MACHINE TENDER 1. Presumed Mo/Di twin IUP at 30w [...] MD IMG OB US PROCEDURES Edite d documented in this encounter Visit Diagnoses Not on filedocumented in this encounter Care Teams Cereal Maker Relationship Specialty Start Date End Date No, Physician PCP - General 02/25/24 documented as of this encounter
--- OUTSIDE RECORDS SUMMARY | 2024-10-06 03:41 | XMS_ITS | Encounter Summary ---
Author Organization [facility] Healthcare Address [address] [place] [address] Care Team Providers Care Analysis Analyst Name Role Phone No, Physician Primary Care Provider [phone] Reason for Visit * Auth/Cert (Routine) Specialty Diagnoses / Procedures Referred By Contac t Referred To Contact Diagnoses Preeclampsia, unspecified trimester Hypertension Procedures N/A Referral ID Status Reason Start Date Expiration Date Visits Re quested Visits Authorized [id number] 1 1 Encounter Details Date Type Department Care Team (Late st Contact Info) Description 08/02/2024 9:15 AM CDT Ancillary Procedure [address] [place] [address] Social History Tobacco Use Types Packs/Day Years Used Date Smoking Tobacco: Never Smokeless Tobacco: Never [facility] Utilities Answer Date Recorded In the past 12 months has [facility] electric, gas, oil, or water company threatened [...] often do you attend chur ch or zoroastrian services? Never 07/29/2024 Do you belong to any clubs o r organizations such as religious groups, unions, fraternal or athletic groups, or [...] staff should administer the PHQ-9) 0 07/28/2024 [facility] - Occupational Stress Questionnaire Answer Date Recorded [...] things needed for daily living? No 07/29/2024 [place] Depression Scale Answer Date Recorded [place] Depression Scale Total 8 07/12/2024 The thought [...] any time in the past 12 m [facility], were you homeless or living in a nursing home (including now)? No 07/29/2024 Personal Safety Answer Date Recorded Have you ever been in or are you currently in a harmful physical or emotional relationship or is someone making you feel afraid or unsafe? Denies 07/29/2024 Comments Yes Sex and Gender Information Value Date Recorded Sex Assigned at Not on file Legal Sex Female 2:19 AM MEDICARE SPECIALIST Gender Identity Not on file Sexual Orientation Not on file documented as of this encounter Plan of Treatment Not on file documented as of this encounter Procedures Procedure Name Priority Date/Time Associated Diagnosis Comments US OB LIMITED IP Routine 08/02/2024 11:48 AM CDT documented in this encounter Results * US Ob Limited (08/02/2024 11:48 AM [...] previously determined to be monochorionic by the [facility] practice. Anatomic surveys were also completed [...] was previously determined to bemonochorionic by the [facility] practice. Anatomic surveys were alsocompleted there. [...] MD IMG OB US PROCEDURES Final Result documented in this encounter Visit Diagnoses Not on filedocumented in this encounter Care Teams Analysis Analyst Relationship Specialty Start Date End Date No, Physician PCP - General 02/25/24 documented as of this encounter
--- OUTSIDE RECORDS SUMMARY | 2024-10-06 03:41 | XMS_ITS | Encounter Summary ---
Author Organization [facility] Healthcare Address [address] [place] [address] Care Team Providers Care Tub Mender Name Role Phone No, Physician Primary Care Provider [phone] Reason for Referral * Diagnostic Imaging (Routine) - Pending Review Specialty Diagnoses / Procedures Referred By Contac t Referred To Contact Diagnoses High risk , antepartum Monochorionic diamniotic twin , antepartum Procedures US OB Follow up with US Transvaginal (C) Dia Mantilla MD [address] [place] [address] DR BAUTISTA [address] [place] [id number] Phone: tel: [place] [address] [place] [address] Referral ID Status Reason Start Date Expiration Date V isits Requested Visits Authorized [id number] Pending Review 05/19/2024 06/18/2025 2 2 Reason for Visit * Diagnostic Imaging (Routine) - Pending Review Specialty Diagnoses / Procedures Referred By Contac t Referred To Contact Diagnoses High risk , antepartum Monochorionic diamniotic twin , antepartum Procedures US OB Follow up with US Transvaginal (C) Dia Mantilla MD [address] [place] [address] DR BAUTISTA [address] [place] [id number] Phone: tel: [facility] [address] [place] [address] Referral ID Status Reason Start Date Expiration Date V isits Requested Visits Authorized [id number] Pending Review 05/19/2024 06/18/2025 2 2 Encounter Details Date Type Department Care Team (Latest Contact Info) Description 07/27/2024 12:18 PM CDT - 07/27/2024 11:59 PM CDT Hospital Encounter [facility] Maternal Medicine Ultrasound[facility] [address] [place] [address] High risk , antepartum; Monochorionic diamniotic twin , antepartum Discharge Disposition: Discharge to home or self care Social History Tobacco Use Types Packs/Day Years Used Date Smoking Tobacco: Never Smokeless Tobacco: Never Humiliation, Afraid, Rape, and Kick questionnair e [...] neighbors? More than three times a week 07/28/2024 How often do you get togethe r with friends or relatives? More than three times a week 07/28/2024 How often do you attend [facility] or hinduism services? Never 07/28/2024 Do you belong to any clubs o r organizations such as nondenominational groups, unions, fraternal or athletic groups, or school groups? No 07/28/2024 How often do you attend meet ings of the clubs or organizations you belong to? Never 07/28/2024 Are you , , di vorced, , never , or living with a partner? 07/28/2024 AUDIT-C Answer Date Recorded Q1: How often [...] food, housing, medical care, and heating? Not hard at all 07/28/2024 PHQ-2 Answer Date Recorded PHQ-2 Total Score (If total score is 3 or more points, staff should administer the PHQ-9) 0 07/28/2024 [facility] - Occupational Stress Questionnaire Answer [...] the money to buy more. Never true 07/28/20 24 Within the past 12 months, t he food you bought just didn't last and you didn't have money to get more. Never true 07/28/2024 [facility] - Transportation Answer Date Re corded In the past 12 months, has l ack of transportation kept you from medical appointments or from getting medications? No 07/06 In the past 12 months, has l ack of transportation kept you from meetings, work, or from getting things needed for daily living? No 07/28/2024 [place] Depression Scale Answer Date Recorded [place] Depression Scale Total 8 07/12/2024 The thought of harming myself has occurred to me . Never 07/12/2024 Housing Stability Vital Sign Answer Devan e Recorded In the last 12 months, was t here a time when you were not able to pay the mortgage or rent on time? No 07/28/2024 In the past 12 months, how m any times have you moved where you were living? 1 07/28/2024 At any time in the past 12 m [facility], were you homeless or living in a senior care (including now)? No 07/28/2024 Personal Safety Answer Date Recorded Getting School Help Needed Not on file 02/24 Comments Yes Sex and Gender Information Value Date Recorded Sex Assigned at Not on file Legal Sex Female 2:19 AM STRAIGHTENER HAND Gender Identity Not on file Sexual Orientation Not on file documented as of this encounter Medications at Time of Discharge no115/iron/folic acid ( 19 ORAL) Take by mouth aspirin 81 mg chewable tablet Take 1 tablet (81 mg total) by mouth daily 30 tablet 11 04/15/2024 09/22/2024 cholecalciferol (VITAMIN D-3) 2000 unit tablet Take 1 tablet (2,000 Units total) by mouth daily 30 tablet 11 07/12/2024 09/22/2024 ibuprofen (ADVIL,MOTRIN) 400 mg tablet Take 1 tablet by mouth every 6 hours every other day on odd calendar days 90 tablet 2 07/13/2024 09/22/2024 metoclopramide (REGLAN) 10 mg tablet Take 1 tablet (10 mg total) by mouth 4 (four) times a day as needed (nausea) 30 tablet 1 05/31/2024 09/22/2024 progesterone (PROMETRIUM) 200 mg capsule Take 1 capsule (200 mg total) by mouth daily 30 capsule 11 07/13/2024 09/22/2024 documented as of this encounter Discharge Disposition Disposition Code Departure Means Destination Discharge to home or self care documented in this encounter Plan of Treatment Not on file documented as of this encounter Procedures Procedure Name Priority Date/Time Associated Diagnosis Comments US OB FOLLOW UP WITH US TRANSVAGINAL (C) Schedule Routine, Read Routine (OP Routine) 07/27/2024 1:44 PM CDT High risk , antepartum Monochorionic diamniotic twin , antepartum documented in this encounter Results * US OB Follow up with US Transvaginal (C) (07/27/2024 1:44 PM CDT) Fetus# Fetus1 VIEWPOINT Estimated Weight 1,054 g&grams [...] IMG OB US PROCEDURE S Final Result documented in this encounter Visit Diagnoses Diagnosis High risk , antepartum Monochorionic diamniotic twin , antepartum documented in this encounter Care Teams Tub Mender Relationship Specialty Start Date End Date No, Physician PCP - General 02/25/24 documented as of this encounter
--- OUTSIDE RECORDS SUMMARY | 2024-10-06 03:41 | XMS_ITS | Encounter Summary ---
Author Organization [facility] Healthcare Address [address] [place] [address] Care Team Providers Care Director Of Physician Practices Name Role Phone No, Physician Primary Care Provider [phone] Reason for Visit * Reason Comments Follow-up Encounter Details Date Type Department Care Team (Late st Contact Info) Description 07/13/2024 2:30 PM CDT Office Visit [facility] Maternal Medicine at [facility] [address] [place] [phone] Nancy Be, FILLER BLOCK INSERTER REMOVER [address] [place] [address] Unspecified high-risk (Primary Dx) Social History Tobacco Use Types Packs/Day Years Used Date Smoking Tobacco: Never Smokeless Tobacco: Never Tobacco Cessation:Counseling Given: Not Answered Humiliation, Afraid, Rape, and Kick questionnair e [...] by your partner or ex-partner? No 04/15/2024 AUDIT-C Answer Date Recorded Q1: How often do you have a drink containing alcohol? Never 04/15/2024 Q2: How many drinks containi ng alcohol do you have on a typical day when you are drinking? Patient does not drink Q3: How often do you have si x or more drinks on one occasion? Never 04/15/2024 PHQ-2 Answer Date Recorded PHQ-2 Total Score (If total score is 3 or more points, staff should administer the PHQ-9) 0 05/18/2024 Moran Depression Scale Answer Date Recorded Moran Depression Scale Total 8 07/12/2024 The thought of harming myself has occurred to me . Never 07/12/2024 Personal Safety Answer Date Recorded Getting School Help Needed Not on file 02/24 Comments Yes Sex and Gender Information Value Date Recorded Sex Assigned at Not on file Legal Sex Female 2:19 AM MORPHOLOGY TEACHER Gender Identity Not on file Sexual Orientation Not on file documented as of this encounter Last Filed Vital Signs Vital Sign Reading Time Taken Comments Blood Pressure 124/84 07/13/2024 2:44 PM CDT Pulse - - Temperature - - Respiratory Rate - - Oxygen Saturation - - Inhaled Oxygen Concentration - - Weight 127 kg (280 lb) 07/13/2024 2:44 PM CDT Height - - Body Mass Index 46.59 07/12/2024 10:25 AM CDT documented in this encounter Ordered Prescriptions Prescription Sig Dispense Quantity Refills Last Filled Start Date End Date ibuprofen (ADVIL,MOTRIN) 400 mg tablet Take 1 tablet by mouth every 6 hours every other day on odd calendar days 90 tablet 2 07/13/2024 4 progesterone (PROMETRIUM) 200 mg capsule Take 1 capsule (200 mg total) by mouth daily 30 capsule 11 07/13/2024 4 documented in this encounter Progress Notes * Nancy Be, KENTRELL - 07/13/2024 2:30 PM CDT Images from the original note were not included. Subjective/Objective Patient ID: Suki Leon is a 29 y.o. female. Chief Complaint Chief Complaint Patient presents with Follow-up HPI Suki returns to the [facility] office at 24 weeks and 2 [...] BMI 46.59 kg/m?? Consultative Impressions and Recommendations: . y.o. @ w , 10/31/24 [facility] Results: Foresight, Carrier Screen: Negative Prequel, Screen: [...] every 6 hours odd calendar days Recommendations: [facility] comanagement is recommended and we will schedule [...] which was spent in the activities documented inthe note. This includes time spent prior to the visit and after the visit in direct care of the patient. This time does not include time spent in any separately reportable services. Nancy Be NP Cosigned by Byron Tellez MD at 07/14/2024 6:43 PM CDT documented in this encounter Plan of Treatment Not on file documented as of this encounter Procedures Procedure Name Priority Date/Time Associated Diagnosis Comments POCT URINALYSIS DIPSTICK Routine 07/13/2024 2:45 PM CDT Unspecified high-risk documented in this encounter Results * (ABNORMAL) POCT urinalysis dipstick (07/13/2024 2:45 PM CDT) Glucose, ur, POC Negative Negative MG/DL Bilirubin, ur, POC Negative Negative, Small, Moderate, Large Ketones, ur, POC Negative Negative Specific [place], POC 1.025 1.003 - 1.030 Blood, ur, POC Negative Negative pH, ur, POC 6.0 5.0 - 8.0 Protein, ur, POC Negative Negative Urobilinogen, urine, POC 0.2 0.2 - 1.0 mg/dL Nitrite, ur, POC Negative Negative Leukocytes, ur, POC Moderate(A) Negative Lot Number [id number] Urine 07/13/2024 2:45 PM CDT Nancy Be NP POINT OF CARE TEST ORD ERABLES Final Result documented in this encounter Visit Diagnoses Diagnosis Unspecified high-risk - Primary documented in this encounter Care Teams Director Of Physician Practices Relationship Specialty Start Date End Date No, Physician PCP - General 02/25/24 documented as of this encounter
--- OUTSIDE RECORDS SUMMARY | 2024-10-06 03:41 | XMS_ITS | Encounter Summary ---
Author Organization [facility] Healthcare Address [address] [place] [address] Care Team Providers Care Manager Infusion Name Role Phone No, Physician Primary Care Provider [phone] Encounter Details Date Type Department Care Team (Late st Contact Info) Description 07/27/2024 [facility] Only [facility] [address] [place] [phone] DakotaFrancine Twin , unable to determine number of placenta and number of amniotic sacs, antepartum, unspecified trimester (Primary Dx); BMI 40.0-44.9, adult (HCC); Maternal varicella, non-immune; Rh negative state in antepartum period; Long-term current use of antidepressant; Anxiety disorder, unspecified type Social History Tobacco Use Types Packs/Day Years [...] week 07/28/2024 How often do you attend chur or spiritism services? Never 07/28/2024 Do you belong to any clubs o r organizations such as latter-day groups, unions, fraternal or athletic groups, or [...] staff should administer the PHQ-9) 0 07/28/2024 [facility] - Occupational Stress Questionnaire Answer Date Recorded [...] money to buy more. Never true 07/28/20 Within the past 12 months, t he [...] things needed for daily living? No 07/28/2024 [place] Depression Scale Answer Date Recorded [place] Depression Scale Total 8 07/12/2024 The thought [...] any time in the past 12 m [facility], were you homeless or living in a retirement (including now)? No 07/28/2024 Personal Safety Answer Date Recorded Getting School Help Needed Not on file 02/24 Comments Yes Sex and Gender Information Value Date Recorded Sex Assigned at Not on file Legal Sex Female 2:19 AM SERVER SYSTEMS ADMINISTRATOR Gender Identity Not on file Sexual Orientation Not on file documented as of this encounter Plan of Treatment Not on file documented as of this encounter Visit Diagnoses Diagnosis Twin , unable to determine number of placenta and number of amniotic sacs, antepartum, unspecified trimester- Primary BMI 40.0-44.9, adult (HCC) Maternal varicella, non-immune Supervision of other normal Rh negative state in antepartum period Long-term current use of antidepressant Anxiety disorder, unspecified type documented in this encounter Care Teams Manager Infusion Relationship Specialty Start Date End Date No, Physician PCP - General 02/25/24 documented as of this encounter
--- OUTSIDE RECORDS SUMMARY | 2024-10-06 03:41 | XMS_ITS | Encounter Summary ---
Author Organization [facility] Healthcare Address [address] [place] [address] Care Team Providers Care Upholsterer Limousine And Hearse Name Role Phone No, Physician Primary Care Provider Reason for Visit * Reason Onset Date Comments Test Results 07/12/2024 Encounter Details Date Type Department Care Team (Late st Contact Info) Description 07/12/2024 Telephone [facility] [address] [place] [address] Dia Mantilla MD [address] [place] [address] [address] [place] [address] Test Results Social History Tobacco Use Types Packs/Day Years [...] staff should administer the PHQ-9) 0 05/18/2024 [place] Depression Scale Answer Date Recorded [place] Depression Scale Total 8 07/12/2024 The thought of harming myself has occurred to me . Never 07/12/2024 Personal Safety Answer Date Recorded Getting School Help Needed Not on file 02/24 Comments Yes Sex and Gender Information Value Date Recorded Sex Assigned at Not on file Legal Sex Female 2:19 AM RETURNS CLERK Gender Identity Not on file Sexual Orientation Not on file documented as of this encounter Ordered Prescriptions Prescription Sig Dispense Quantity Refills Last Filled Start Date End Date cholecalciferol (VITAMIN D-3) 2000 unit tablet Take 1 tablet (2,000 Units total) by mouth daily 30 tablet 11 07/12/2024 09/22/2024 documented in this encounter Miscellaneous Notes * Telephone Encounter - Beata Joy RN - 07/12/2024 5:27 PM CDT Called and LVM for patient stating I was calling to review a lab result. Made patient aware that I would send her a Asetek message. I will order 2000IU to her pharmacy for her to take daily. * Telephone Encounter - Beata Joy RN - 07/12/2024 5:27 PM CDT ----- Message from Dia Mantilla MD sent at 07/12/2024 3:35 PM CDT ----- Please start her on vit d documented in this encounter Plan of Treatment Not on file documented as of this encounter Visit Diagnoses Not on filedocumented in this encounter Care Teams Upholsterer Limousine And Hearse Relationship Specialty Start Date End Date No, Physician PCP - General 02/25/24 documented as of this encounter
--- OUTSIDE RECORDS SUMMARY | 2024-10-06 03:41 | XMS_ITS | Encounter Summary ---
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 Never 07/29/2024 Do you belong to any clubs o r organizations such as oriental orthodox groups, unions, fraternal or athletic groups, or [...] administer the PHQ-9) 0 07/28/2024 [facility] - Occupational Stress Questionnaire Answer [...] things needed for daily living? No 07/29/2024 [place] Depression Scale Answer Date Recorded [place] Depression Scale Total 8 07/12/2024 The thought [...] any time in the past 12 m [facility], were you homeless or living in a detention (including now)? No 07/29/2024 Personal Safety Answer Date Recorded Have you ever been in or are you currently in a harmful physical or emotional relationship or is someone making you feel afraid or unsafe? 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 Gender Identity Not on file Sexual Orientation Not on file documented as of this encounter Plan of Treatment Not on file documented as of this encounter Procedures Procedure Name Priority Date/Time Associated Diagnosis Comments US OB 14 WEEKS OR OVER IP Routine 08/09/2024 9:47 AM NOTCHING MACHINE OPERATOR documented in this encounter Results * US Ob 14 Weeks Or Over (08/09/2024 9:47 AM NOTCHING MACHINE OPERATOR) Fetus# Fetus1 VIEWPOINT Placenta Details anterior VIEWPOINT Presentation Vertex; Maternal right- low VIEWPOINT Fetus# Fetus2 VIEWPOINT Placenta Details anterior VIEWPOINT Presentation Vertex; Maternal left- high VIEWPOINT Anatomical Region Laterality Modality Abdomen N/A Ultrasound 08/09/2024 9:50 AM NOTCHING MACHINE OPERATOR Impressions 08/09/2024 11:52 AM NOTCHING MACHINE OPERATOR 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 Anatomic surveys were also completed there. [...] waspreviously determined to be monochorionic by the [facility] practice.Anatomic surveys were also completed there. A [...] on filedocumented in this encounter Care Teams Generation Technologist Relationship Specialty Start Date End Date No, Physician PCP - General 02/25/24 documented as of this encounter
--- OUTSIDE RECORDS SUMMARY | 2024-10-06 03:41 | XMS_ITS | Encounter Summary ---
Author Organization [facility] Address [address] [place] [address] Phone Care Team Providers Care Hand Gluer And Slicer Name Role Phone No, Physician Primary Care Provider [phone] Encounter Details Date Type Department Care Team (Latest Contact Info) Description 08/03/2024 11:34 AM CDT - 08/03/2024 11:59 PM CDT Hospital Encounter [facility] Pediatric Cardiology [facility] 2[address] [place] [address] Discharge Disposition: Discharge to home or self care Social History Tobacco Use Types Packs/Day Years Used Date Smoking Tobacco: Never Smokeless Tobacco: Never [facility] Utilities Answer Date Recorded In the past 12 months has [facility] electric, gas, oil, or water [employer] threatened to shut off services in your [...] How often do you attend chur or samaritan services? Never 07/29/2024 Do you belong to any clubs o r organizations such as sikh groups, unions, fraternal or athletic groups, or [...] staff should administer the PHQ-9) 0 07/28/2024 [facility] - Occupational [...] things needed for daily living? 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 Gender Identity Not on file Sexual Orientation [...] daily with breakfast 30 tablet 2 09/22/2024 ibuprofen (ADVIL,MOTRIN) 600 mg tabletIndication s:Cramps Take [...] by mouth daily 30 tablet 11 04/15/2024 4 cholecalciferol (VITAMIN D-3) 2000 unit tablet Take 1 tablet (2,000 Units total) by mouth daily 30 tablet 11 07/12/2024 4 ibuprofen (ADVIL,MOTRIN) 400 mg tablet Take 1 tablet by mouth every 6 hours every other day on odd calendar days 90 tablet 2 07/13/2024 4 labetaloL (NORMODYNE,TRAND ATE) 300 mg tablet Take 1 tablet (300 mg total) by mouth 3 (three) times a day 90 tablet 11 09/22/2024 4 metoclopramide (REGLAN) 10 mg tablet Take 1 tablet (10 mg total) by mouth 4 (four) times a day as needed (nausea) 30 tablet 1 05/31/2024 4 progesterone (PROMETRIUM) 200 mg capsule Take 1 capsule (200 mg total) by mouth daily 30 capsule 11 07/13/2024 4 documented as of this encounter Discharge Disposition Disposition Code Departure Means Destination Discharge to home or self care documented in this encounter Plan of Treatment Not on file documented as of this encounter Procedures Procedure Name Priority Date/Time Associated Diagnosis Comments ECHOCARDIOGRAM Routine 08/03/2024 4:07 PM CDT documented in this encounter Results * Echocardiogram (08/03/2024 4:07 PM CDT) Anatomical Region Laterality Modality Ultrasound 08/03/2024 1:22 PM CDT Narrative 08/03/2024 5:10 PM CDT ?[facility] ? Echo Report ?[address] ??[address] ?[phone] ? Patient Name: SUKI BEE ? Study Type: Echo ? Patient : 1995 ? Exam Date: ??08/03/2024 ? Age: ?29Y ? Exam Time: ??1:22:00 PM ? Referring MD: SIM HUSAIN ? Height: ? 65in ? Weight: ? 284lb ? BSA: ?2.3 m2 ? Sex: FEMALE ? BP: ? 139/83 ? General Adjuster: May Quick ? Pat. Stat.: Inpatient ?Room: 6800 ? Account:[id number] ? Indications for Study:MONO-DI TWINS Procedures: COLORFLOW, [...] Normal. Septum: PFO. Defect sz. Moderate ??Shunt: Mdiru-ri-[id number] ?? Annular Dimensions: ??Ao Valve: 0.52 cm [...] Procedure Note Macie Vickers MD - 08/03/2024 [facility] Echo Report [address] [address] Patient Name: SUKI BEE Study Type: Echo Patient : 1995 Exam Date: 08/03/2024 Age: 29Y Exam Time: 1:22:00 PM Referring MD: SIM HUSAIN Height: 65in Weight: 284lb BSA: 2.3 m2 Sex: FEMALE BP: 139/83 General Adjuster: May Quick Pat. Stat.: Inpatient Room: [facility] Account:[id number] Indications for Study:MONO-DI TWINS Procedures: COLORFLOW, DOPPLER [...] Normal. Septum: PFO. Defect sz. Moderate Shunt: Wqnva-[id number]-[id number] Annular Dimensions: Ao Valve: 0.52 cm (+0.79) [...] MD CV ECHO PROCEDURES Final R esult documented in this encounter Visit Diagnoses Not on filedocumented in this encounter Care Teams Hand Gluer And Slicer Relationship Specialty Start Date End Date No, Physician PCP - General 02/25/24 documented as of this encounter
--- OUTSIDE RECORDS SUMMARY | 2024-10-06 03:41 | XMS_ITS | Encounter Summary ---
Author Organization [facility] Healthcare Address [address] [place] [address] Care Team Providers Care Group Therapy Counselor Name Role Phone No, Physician Primary Care Provider [phone] Encounter Details Date Type Department Care Team (Latest Contact Info) Description 07/29/2024 3:15 PM CDT - 07/29/2024 11:59 PM CDT Hospital Encounter [facility] [phone] Discharge Disposition: Discharge to home or self care Social History Tobacco Use Types Packs/Day Years Used Date Smoking Tobacco: Never Smokeless Tobacco: Never [facility] Utilities Answer Date Recorded In the past 12 months has [facility] electric, gas, oil, or water company [...] often do you attend chur ch or gnosticism services? Never 07/29/2024 Do you belong to any clubs o r organizations such as mu-ism groups, unions, fraternal or athletic groups, or [...] staff should administer the PHQ-9) 0 07/28/2024 [facility] [place] [facility] ional [facility] - Occupational Stress [...] things needed for daily living? No 07/29/2024 [place] Depression Scale Answer Date Recorded [place] Depression Scale Total 8 07/12/2024 The thought [...] time in the past 12 m [facility], were you homeless or living in a longterm (including now)? No 07/29/2024 Personal Safety Answer Date Recorded Have you ever been in or are you currently in a harmful physical or emotional relationship or is someone making you feel afraid or unsafe? 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
--- OUTSIDE RECORDS SUMMARY | 2024-10-06 03:41 | XMS_ITS | Encounter Summary ---
Author Organization [facility] Healthcare Address [address] [place] [address] Care Team Providers Care Bull Rider Name Role Phone No, Physician Primary Care Provider [phone] Reason for Visit * Reason Comments Routine Visit 24.1 weeks with brad rogers USG completed for heart tones Flu Vaccine Pt received flu vacc ine today Encounter Details Date Type Department Care Team (Late Contact Info) Description 07/12/2024 10:30 AM CDT Routine [facility] [address] [place] [address] [address] [place] [id number] Dia Mantilla MD [address] [place] [address] [phone] Twin , unable to determine number of placenta and number of amniotic sacs, antepartum, unspecified trimester (Primary Dx); Encounter for supervision of normal first in first trimester; 24 weeks gestation of Social History Tobacco Use Types Packs/Day Years [...] staff should administer the PHQ-9) 0 05/18/2024 [place] Depression Scale Answer Date Recorded [place] Depression Scale Total 8 07/12/2024 The thought of harming myself has occurred to me . Never 07/12/2024 Personal Safety Answer Date Recorded Getting School Help Needed Not on file 02/24 Comments Yes Sex and Gender Information Value Date Recorded Sex Assigned at Not on file Legal Sex Female 2:19 AM [employer] Gender Identity Not on file Sexual Orientation Not on file documented as of this encounter Last Filed Vital Signs Vital Sign Reading Time Taken Comments Blood Pressure 132/86 07/12/2024 10:25 AM CDT Pulse - - Temperature - - Respiratory Rate - - Oxygen Saturation - - Inhaled Oxygen Concentration - - Weight 127.3 kg (280 lb 9.6 oz) 024 10:25 AM CDT Height 165.1 cm (5' 5 ) 07/12/2024 10:2 5 AM CDT Body Mass Index 46.69 07/12/2024 10:25 AM CDT documented in this encounter Progress Notes * Dia Mantilla MD - 07/12/2024 10:30 AM CDT 24w1d Labs reviewed. - to vit d. To T&S and GCT (per mfm)- I dont see the vit D. She will go to have for tomorrow. To basa- she is taking. cfDNA testing- negative. RTO 4 weeks for gct and rhogam. MFM appointments. - tomorrow. She got the flu shot today. documented in this encounter Miscellaneous Notes * Addendum Note - Johny Pierce MA - 07/12/2024 10:30 AM CDTAddended by: JOHNY PIERCE on: 07/12/2024 10:50 AM Modules accepted: Orders documented in this encounter Plan of Treatment Scheduled Orders Name Type Priority Associated Diagnoses Orde r Schedule RPR Blood Microbiology Routine Encounter for supervision of normal first in first trimester Expected: 07/12/2024, Expires: 07/12/2025 HIV 1/2 Antibody plus p24 Antigen Blood Microbiology Routine Encounter for supervision of normal first in first trimester Expected: 07/12/2024, Expires: 07/12/2025 GTT 50gm 1hr gestational screen Lab Routine Encounter for supervision of normal first in first trimester Expected: 07/12/2024, Expires: 07/12/2025 CBC with auto differential Lab Routine Encounter for supervision of normal first in first trimester Expected: 07/12/2024, Expires: 07/12/2025 Hepatitis C antibody Blood Microbiology Routine Encounter for supervision of normal first in first trimester Expected: 07/12/2024, Expires: 07/12/2025 documented as of this encounter Procedures Procedure Name Priority Date/Time Associated Diagnosis Comments POCT OB URINE SHORT DIP (GLUCOSE, PROTEIN, KETONES) Routine 07/12/2024 10:31 AM CDT Encounter for supervision of normal first in first trimester 24 weeks gestation of documented in this encounter Results * (ABNORMAL) Vitamin D 25 hydroxy (07/12/2024 11:01 AM CDT) Vitamin D 25-OH 26(L) 30 - 80 ng/mL Blood 07/12/2024 11:0 1 AM CDT 07/12/2024 1:53 PM CDT us Dia Mantilla MD LAB BLOOD ORDERABLE S Final Result [facility] Department [place] [address] * (ABNORMAL) POCT OB urine short dip (glucose, protein, ketones) (07/12/2024 10:31 AM CDT) Glucose, ur, POC Negative Negative MG/DL Protein, ur, POC Trace(A) Negative Ketones, ur, POC Negative Negative Lot Number [id number] Urine 07/12/2024 10:3 1 AM CDT Dia Mantilla MD POINT OF CARE TEST ORDERABLES Final Result documented in this encounter Visit Diagnoses Diagnosis Twin , unable to determine number of placenta and number of amniotic sacs, antepartum, unspecified trimester- Primary Encounter for supervision of normal first in first trimester 24 weeks gestation of documented in this encounter Orders Immunization/Injection Count Last Ordered Date First Ordered Date FLU VACCINE TRI (6 M OS UP) PF - FLULAVAL/FLUARIX/FLUZONE 1 07/12/2024 documented in this encounter Care Teams Bull Rider Relationship Specialty Start Date End Date No, Physician PCP - General 02/25/24 documented as of this encounter
--- OUTSIDE RECORDS SUMMARY | 2024-10-06 03:41 | XMS_ITS | Encounter Summary ---
Author Organization [facility] Healthcare Address [address] [place] [address] Care Team Providers Care Manufacturing Operations Manager Name Role Phone No, Physician Primary Care Provider Encounter Details Date Type Department Care Team (Late st Contact Info) Description 07/28/2024 9:32 PM CDT - 07/29/2024 1:41 AM CDT Hospital Encounter [facility] [address] [place] [address] Dia Mantilla MD [address] [place] [address] Discharge Disposition: Discharge to a critical access hospital Social History Tobacco Use Types Packs/Day Years Used Date Smoking Tobacco: Never Smokeless Tobacco: Never [facility] Utilities Answer Date Recorded In the past 12 months has [facility] electric, gas, oil, or water company threatened [...] often do you attend chur ch or jew services? Never 07/29/2024 Do you belong to any clubs o r organizations such as mandaeism groups, unions, fraternal or athletic groups, or [...] administer the PHQ-9) 0 07/28/2024 [facility] - Occupational Stress Questionnaire [...] things needed for daily living? No 07/29/2024 [place] Depression Scale Answer Date Recorded [place] Depression Scale Total 8 07/12/2024 The thought [...] were you homeless or living in a usp (including now)? No 07/29/2024 Personal Safety Answer Date Recorded Have you ever been in or are you currently in a harmful physical or emotional relationship or is someone making you feel afraid or unsafe? 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 10 patch 09/22/2024 5 NIFEdipine (PROCARDIA XL/ADALAT [...] Disposition Code Departure Means Destination Discharge to a critical access hospital [facility] documented in this encounter Progress Notes * Norma Hagan MD - 07/28/2024 9:38 PM CDT [facility] Obstetrics Triage Note Chief Complaint: elevated blood pressure, headache Estimated Date of Delivery: 10/31/24 Provider: [place] [facility] Moving Supervisor: STEPHON Subjective HPI: Suki Leon is a 29 y.o. female at 26w3d weeks gestation, dated by 8 wk ultrasound, no consistent with LMP with Estimated Date of Delivery: 10/31/24 who presents to [facility] L&D Triage for elevated blood pressure. 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 Today, patient reports elevated blood pressure with home readings in the 140s/100s, as well as a headache starting this morning and gradually worsening. It is refractory to Tylenol. There is associated spots in her vision, although this also happens at baseline and may attributed to astigmatism. She was seen by M yesterday and preeclampsia labs were negative. She also reports intermittent nausea, vomiting, and constipation not causing acute distress. She denies dizziness, LOC, abdominal pain,itching, numbness, and tingling. 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 - [...] to start magnesium and betamethasone, transfer to [facility] for further management. Plan discussed with Dr. Sterling. Norma Hagan MD Family Medicine PGY-2 [facility] Family Medicine Residency Cosigned by Kodak Sterling MD at 08/02/2024 8:59 AM CDT documented in this encounter H&P Notes * Kodak Sterling MD - 07/28/2024 10:47 PM CDT [address] of [address] Mantilla currently with mono-chorionic, diamniotic twins at 26 3/7 weeks. 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 She presents to L&D with blurry vision, headache, and elevated Bps at home. She reports good movement, leaking of fluid or contractions. Ultrasound yesterday had twin weights at 1054 g.(A) and 847 g.(B) On L&D initial BP was 170/95, repeat was 166/89 She had an IV started and was given a dose of labetalol IV as per protocol. Her BP normalized and most recently was 135/69 Continues to have HARRY and visual changes Labs Pre-eclamptic labs done yesterday at outside hospital PC ratio was 158 WBC 9.3 H/h ; 11.4/33.6 Platelets 278 Urine 1+ ketones, (-) protein Impression / Plan: 26 3/7 weeks twins with symptomatic hypertension. Dinesh start magnesium sulfate for seizure prophylaxis, give first dose of steroids for lung maturity, and continue with labetalol cascade if needed. Discussed case with Dr [facility] of [facility] who [facility] to [facility] documented in this encounter Nursing Notes * Briana George RN - 07/29/2024 1:41 AM CDT Pt arrived to L&D with complaints of headache that won't go away with tylenol, blurry vision, aseeing spots. Pt placed on EFM. Reactive strip for both babies, no contractions noted with movement stated from the patient. BPs noted to be severe, notified and given orders for labetalol per DEC. Mag and celestone administered as well per DEC. Transfer orders received. Report given to Nurse Keller with [facility] transport team @ [phone]. Pt transported off floor on stretcher with [facility] transport team. documented in this encounter Plan of Treatment Not on file documented as of this encounter Procedures Procedure Name Priority Date/Time Associated Diagnosis Comments EGFR STAT 07/28/2024 10:30 PM CDT URINALYSIS AND REFLEX TO MICROSCOPIC AND CULTURE Routine 07/28/2024 10:30 PM CDT PROTEIN / CREATININE RATIO, URINE, RANDOM Routine 07/28/2024 10:30 PM CDT CBC WITHOUT DIFFERENTIAL STAT 07/28/2024 10:30 PM CDT URIC ACID STAT 07/28/2024 10:30 PM CDT LACTATE DEHYDROGENASE STAT 07/28/2024 10:30 PM CDT COMPREHENSIVE METABOLIC PANEL STAT 07/28/2024 10:30 PM CDT documented in this encounter Results * eGFR (07/28/2024 10:30 PM CDT) eGFR [...] 0 PM CDT 07/28/2024 10:39 PM CDT Kodak Sterling MD LAB BLOOD ORDERABLES F inal Result [facility] ([place]) [address] [place] [address] [place] [address] * Uric acid (07/28/2024 10:30 PM CDT) Uric acid 5.5 2.5 - 7.0 mg/dL Blood 07/28/2024 10:3 0 PM CDT 07/28/2024 10:36 PM CDT Kodak Sterling MD LAB BLOOD ORDERABLES F inal Result Performing Organization Address [facility] Co de Phone Number [facility] ([place]) [address] [place] [address] [place] [address] * Lactate dehydrogenase (LD) (07/28/2024 10:30 PM CDT) Lactate dehydrogenase (LDH) 163 100 - 250 Units/L Blood 07/28/2024 10:3 0 PM CDT 07/28/2024 10:36 PM CDT Kodak Sterling MD LAB BLOOD ORDERABLES F inal Result Performing Organization Address City/[facility] Co de Phone Number [facility] ([place]) 1 [facility] [place] [address] * (ABNORMAL) Urinalysis reflex to microscopic and [...] tendency for uric acid stone formation. Source: [facility] [place] Current Interpretive Data was last revised on 2017 Protein, ur ql Negative Negative [facility] ([place]) Glucose, ur ql Negative Negative [facility] ([place]) Ketones, ur 1+(A) Negative [facility] ([place]) Bilirubin, ur Negative Negative [facility] ([place]) [...] MICROBIOLOGY - GEN ERAL ORDERABLES Final Result [facility] 1 [facility] Department [place] [address] * (ABNORMAL) CBC without differential (07/28/2024 10:30 PM CDT) WBC 9.3 3.8 - 9.9 K/cumm Hgb 11.4(L) 11.9 - 15.5 g/dL [facility] ([place]) Hct 33.6(L) 35.6 - 45.5 % [facility] ([place]) Plt 278 150 - 400 K/cumm [facility] ([place]) MPV 10.0 9.1 - 12.3 fL [facility] ([place]) RBC 3.85(L) 3.90 - 5.20 M/cumm [facility] ([place]) MCV 87.3 81.3 - 96.4 fL [facility] ([place]) MCH 29.6 27.1 - 33.3 pg [facility] ([place]) MCHC 33.9 32.3 - 35.7 g/dL [facility] ([place]) RDW CV 13.8 11.1 - 14.9 % [facility] ([place]) RDW SD 44.0 35.7 - 48.1 fL [facility] ([place]) NRBC abs 0.00 0.00 - 0.01 K/cumm [facility] ([place]) Blood 07/28/2024 10:3 0 PM CDT 07/28/2024 10:36 PM CDT Kodak Sterling MD LAB BLOOD ORDERABLES F inal Result [facility] ([place]) 1 [facility] Department of Laboratories [place], [place] [id number] * Protein / creatinine ratio, urine, random (07/28/2024 10:30 PM CDT) Protein, ur, quant 13.9 mg/dL Comment: Interpretive Data No reference range established. Current interpretive data was last revised 2019. Creatinine Ur 113.7 mg/dL [facility] ([place]) Comment: Interpretive Data No reference range established. Current interpretive data was last revised 2019. Protein/creatinin e ratio 122.3 0.0 - 180.0 mg/g CR [facility] ([place]) Urine 07/28/2024 10:3 0 PM CDT 07/28/2024 10:37 PM CDT Kodak Sterling MD LAB URINE ORDERABLES F inal Result [facility] ([place]) 1 [facility] [place] [address] * (ABNORMAL) Comprehensive metabolic panel (07/28/2024 10:30 PM CDT) Sodium 135 135 - 145 mmol/L Potassium, pl 3.1(L) 3.3 - 4.9 mmol/L [facility] ([place]) Chloride 101 97 - 110 mmol/L [facility] ([place]) CO2 20(L) 22 - 32 mmol/L [facility] ([place]) Anion gap 14 2 - 15 mmol/L [facility] ([place]) BUN 5(L) 6 - 25 mg/dL [facility] ([place]) Creatinine 0.56(L) 0.60 - 1.10 mg/dL [...] LAB BLOOD ORDERABLES F inal Result [facility] [place]) 1 [facility] [place] [address] documented in this encounter Visit Diagnoses Not on filedocumented in this encounter Administered Medications Inactive Administered Medications - up to 3 most recent administrations Medication Order MAR Action Action Date Dose Rate Site acetaminophen (TYLENOL) tablet 650 mg 650 mg, oral, Every 4 hours PRN, 1st line for pain, headaches, Starting on [facility] 07/28/24 at 2217 Given 07/28/2024 10:41 PM CDT 650 mg betamethasone (CELESTONE) injection 12 mg 12 mg, intramuscular, Once, On [facility] 07/28/24 at 2345, For 1 dose Given 07/28/2024 11:32 PM CDT 12 mg Right Dorsogluteal/B uttock calcium gluconate 100 mg/mL (10%) injection 1 g 1 g, intravenous, Administer over 3 Minutes, Once as needed, magnesium toxicity, Starting on [facility] 07/28/24 at 2309, For 1 dose, Administer over 3 minutes for magnesium toxicity which may include respiratory rate 12 or less/minute, decreased level of consciousness, absence of reflexes. Notify MD., Indications: hypermagnesemiaIndicatio ns:hypermagnesemia hydrALAZINE (APRESOLINE) injection 10 mg 10 mg, intravenous, Administer over 2 Minutes, Every 20 min PRN, high blood pressure, SBP greater than or equal to 160 or DBP greater than or equal to 110 after labetalol 80 mg, Starting on [facility] 07/28/24 at 2209, For 8 hours, After each dose of hydrALAZINE, recheck BP every 5 minutes. If SBP greater than or equal to 160 or DBP greater than or equal to 110 after 20 minutes, call MD for emergency consult If SBP less than 160 and DBP less than 110, proceed to vital signs follow up order. labetaloL (NORMODYNE,TRANDATE) injection 20 mg 20 mg, intravenous, at 120 mL/hr, Administer over 2 Minutes, Every 10 min PRN, high blood pressure, SBP greater than or equal to 160 or DBP greater than or equal to 110; Hold if HR less than 60., Starting on [facility] 07/28/24 at 2209, For 8 hours, After each dose of labetalol, recheck BP every 5 minutes. If SBP greater than or equal to 160 or DBP greater than or equal to 110 after 10 minutes, proceed to labetalol 40 mg. If SBP less than 160 and DBP less than 110, proceed to vital signs follow up order. Given 07/28/2024 10:24 PM CDT 20 mg 120 mL/hr labetaloL (NORMODYNE,TRANDATE) injection 40 mg 40 mg, intravenous, at 240 mL/hr, Administer over 2 Minutes, Every 10 min PRN, high blood pressure, SBP greater than or equal to 160 or DBP greater than or equal to 110 after labetalol 20 mg; Hold if HR less than 60., Starting on [facility] 07/28/24 at 2209, For 8 hours, After each dose of labetalol, recheck BP every 5 minutes. If SBP greater than or equal to 160 or DBP greater than or equal to 110 after 10 minutes, proceed to labetalol 80 mg. If SBP less than 160 and DBP less than 110, proceed to vital signs follow up order. labetaloL (NORMODYNE,TRANDATE) injection 80 mg 80 mg, intravenous, at 480 mL/hr, Administer over 2 Minutes, Every 10 min PRN, high blood pressure, SBP greater than or equal to 160 or DBP greater than or equal to 110 after labetalol 40 mg; Hold if HR less than 60., Starting on [facility] 07/28/24 at 2209, For 8 hours, After each dose of labetalol, recheck BP every 5 minutes. If SBP greater than or equal to 160 or DBP greater than or equal to 110 after 10 minutes, proceed to hydralazine 10 mg. If SBP less than 160 and DBP less than 110, proceed to vital signs follow up order. magnesium sulfate 40 g/1,000 mL in water infusion (premix) 2 g/hr (50 mL/hr), intravenous, Continuous, Starting on [facility] 07/28/24 at 2345, Suspected magnesium toxicity - Stop if maternal respiratory rate less than 12 breaths/minute, apply oximeter and administer O2 at 8-12 LPM per tight face mask to maintain SaO2 95% or more and notify MD., Indications: Pre-EclampsiaIndications :Pre-Eclampsia Rate/Dose Change 07/28/2024 11:51 PM CDT 2 g/hr 50 mL/hr magnesium sulfate bolus from bag 4 g 4 g, intravenous, Administer over 30 Minutes, Once, On Chiara 07/28/24 at 2345, For 1 dose, Indications: Pre-EclampsiaIndications :Pre-Eclampsia Bolus from Bag 07/28/2024 11:29 PM CDT 4 g documented in this encounter Active and Recently Administered Medications Times are shown in CDT. Scheduled Medication Order 07/27/2024 07/28/2024 07/29/2024 betamethasone (CELESTONE) injection 12 mg (COMPLETED) 12 mg, intramuscular, Once, On [facility] 07/28/24 at 2345, For 1 dose 2332 (Given - Provider: Briana George RN) magnesium sulfate bolus from bag 4 g (COMPLETED)(Linked Group 1) 4 g, intravenous, Administer over 30 Minutes, Once, On [facility] 07/28/24 at 2345, For 1 dose, Indications: Pre-Eclampsia 2329 (Bolus from Bag - Provider: Briana George RN) Continuous Medication Order 07/27/2024 07/28/2024 07/29/2024 magnesium sulfate 40 g/1,000 mL in water infusion (premix)(Linked Group 1) 2 g/hr (50 mL/hr), intravenous, Continuous, Starting on [facility] 07/28/24 at 2345, Suspected magnesium toxicity - Stop if maternal respiratory rate less than 12 breaths/minute, apply oximeter and administer O2 at 8-12 LPM per tight face mask to maintain SaO2 95% or more and notify MD., Indications: Pre-Eclampsia 2351 (Rate/Dose Change - Provider: Briana George RN) 0243 (Due: Stopped) PRN Medication Order 07/27/2024 07/28/2024 07/29/2024 acetaminophen (TYLENOL) tablet 650 mg 650 mg, oral, Every 4 hours PRN, 1st line for pain, headaches, Starting on [facility] 07/28/24 at 2217 2241 (Given - Provider: Briana George RN) calcium gluconate 100 mg/mL (10%) injection 1 g(Linked Group 1) 1 g, intravenous, Administer over 3 Minutes, Once as needed, magnesium toxicity, Starting on [facility] 07/28/24 at 2309, For 1 dose, Administer over 3 minutes for magnesium toxicity which may include respiratory rate 12 or less/minute, decreased level of consciousness, absence of reflexes. Notify MD., Indications: hypermagnesemia hydrALAZINE (APRESOLINE) injection 10 mg(Linked Group 2) 10 mg, intravenous, Administer over 2 Minutes, Every 20 min PRN, high blood pressure, SBP greater than or equal to 160 or DBP greater than or equal to 110 after labetalol 80 mg, Starting on [facility] 07/28/24 at 2209, For 8 hours, After each dose of hydrALAZINE, recheck BP every 5 minutes. If SBP greater than or equal to 160 or DBP greater than or equal to 110 after 20 minutes, call MD for emergency consult If SBP less than 160 and DBP less than 110, proceed to vital signs follow up order. 2224 (See Alternative - Provider: Briana George RN) labetaloL (NORMODYNE,TRANDATE) injection 20 mg(Linked Group 2) 20 mg, intravenous, at 120 mL/hr, Administer over 2 Minutes, Every 10 min PRN, high blood pressure, SBP greater than or equal to 160 or DBP greater than or equal to 110; Hold if HR less than 60., Starting on [facility] 07/28/24 at 2209, For 8 hours, After each dose of labetalol, recheck BP every 5 minutes. If SBP greater than or equal to 160 or DBP greater than or equal to 110 after 10 minutes, proceed to labetalol 40 mg. If SBP less than 160 and DBP less than 110, proceed to vital signs follow up order. 2224 (Given - Provider: Briana George RN) labetaloL (NORMODYNE,TRANDATE) injection 40 mg(Linked Group 2) 40 mg, intravenous, at 240 mL/hr, Administer over 2 Minutes, Every 10 min PRN, high blood pressure, SBP greater than or equal to 160 or DBP greater than or equal to 110 after labetalol 20 mg; Hold if HR less than 60., Starting on [facility] 07/28/24 at 2209, For 8 hours, After each dose of labetalol, recheck BP every 5 minutes. If SBP greater than or equal to 160 or DBP greater than or equal to 110 after 10 minutes, proceed to labetalol 80 mg. If SBP less than 160 and DBP less than 110, proceed to vital signs follow up order. 2224 (See Alternative - Provider: Briana George, KRYSTEN) labetaloL (NORMODYNE,TRANDATE) injection 80 mg(Linked Group 2) 80 mg, intravenous, at 480 mL/hr, Administer over 2 Minutes, Every 10 min PRN, high blood pressure, SBP greater than or equal to 160 or DBP greater than or equal to 110 after labetalol 40 mg; Hold if HR less than 60., Starting on [facility] 07/28/24 at 2209, For 8 hours, After each dose of labetalol, recheck BP every 5 minutes. If SBP greater than or equal to 160 or DBP greater than or equal to 110 after 10 minutes, proceed to hydralazine 10 mg. If SBP less than 160 and DBP less than 110, proceed to vital signs follow up order. 2224 (See Alternative - Provider: Briana George RN) Linked Groups Order Group 1: magnesium sulfate bolus from bag 4 g (COMPLETED)Jump to med 4 g, intravenous, Administer over 30 Minutes, Once, On [facility] 07/28/24 at 2345, For 1 dose, Indications: Pre-Eclampsia And magnesium sulfate 40 g/1,000 mL in water infusion (premix)Jump to med 2 g/hr (50 mL/hr), intravenous, Continuous, Starting on [facility] 07/28/24 at 2345, Suspected magnesium toxicity - Stop if maternal respiratory rate less than 12 breaths/minute, apply oximeter and administer O2 at 8-12 LPM per tight face mask to maintain SaO2 95% or more and notify MD., Indications: Pre-Eclampsia And calcium gluconate 100 mg/mL (10%) injection 1 gJump to med 1 g, intravenous, Administer over 3 Minutes, Once as needed, magnesium toxicity, Starting on [facility] 07/28/24 at 2309, For 1 dose, Administer over 3 minutes for magnesium toxicity which may include respiratory rate 12 or less/minute, decreased level of consciousness, absence of reflexes. Notify MD., Indications: hypermagnesemia And Magnesium (CANCELED) As needed/STAT, Starting on [facility] 07/28/24 at 2309, Until Specified, Specimen Types - Blood;, Suspected magnesium toxicity Group 2: labetaloL (NORMODYNE,TRANDATE) injection 20 mgJump to med 20 mg, intravenous, at 120 mL/hr, Administer over 2 Minutes, Every 10 min PRN, high blood pressure, SBP greater than or equal to 160 or DBP greater than or equal to 110; Hold if HR less than 60., Starting on [facility] 07/28/24 at 2209, For 8 hours, After each dose of labetalol, recheck BP every 5 minutes. If SBP greater than or equal to 160 or DBP greater than or equal to 110 after 10 minutes, proceed to labetalol 40 mg. If SBP less than 160 and DBP less than 110, proceed to vital signs follow up order. Or labetaloL (NORMODYNE,TRANDATE) injection 40 mgJump to med 40 mg, intravenous, at 240 mL/hr, Administer over 2 Minutes, Every 10 min PRN, high blood pressure, SBP greater than or equal to 160 or DBP greater than or equal to 110 after labetalol 20 mg; Hold if HR less than 60., Starting on [facility] 07/28/24 at 2209, For 8 hours, After each dose of labetalol, recheck BP every 5 minutes. If SBP greater than or equal to 160 or DBP greater than or equal to 110 after 10 minutes, proceed to labetalol 80 mg. If SBP less than 160 and DBP less than 110, proceed to vital signs follow up order. Or labetaloL (NORMODYNE,TRANDATE) injection 80 mgJump to med 80 mg, intravenous, at 480 mL/hr, Administer over 2 Minutes, Every 10 min PRN, high blood pressure, SBP greater than or equal to 160 or DBP greater than or equal to 110 after labetalol 40 mg; Hold if HR less than 60., Starting on [facility] 07/28/24 at 2209, For 8 hours, After each dose of labetalol, recheck BP every 5 minutes. If SBP greater than or equal to 160 or DBP greater than or equal to 110 after 10 minutes, proceed to hydralazine 10 mg. If SBP less than 160 and DBP less than 110, proceed to vital signs follow up order. Or hydrALAZINE (APRESOLINE) injection 10 mgJump to med 10 mg, intravenous, Administer over 2 Minutes, Every 20 min PRN, high blood pressure, SBP greater than or equal to 160 or DBP greater than or equal to 110 after labetalol 80 mg, Starting on [facility] 07/28/24 at 2209, For 8 hours, After each dose of hydrALAZINE, recheck BP every 5 minutes. If SBP greater than or equal to 160 or DBP greater than or equal to 110 after 20 minutes, call MD for emergency consult If SBP less than 160 and DBP less than 110, proceed to vital signs follow up order. documented in this encounter Orders Medications Ordered That Missael ht Not Have Been Administered Count Last Ordered Date First Ordered Date calcium gluconate 100 mg/mL (10%) injection 1 g 1 07/28/2024 hydrALAZINE (APRESOLINE) injection 10 mg 1 07/28/2024 labetaloL (NORMODYNE,TRANDAT E) injection 40 mg 1 07/28/2024 labetaloL (NORMODYNE,TRANDAT E) injection 80 mg 1 07/28/2024 documented in this encounter Care Teams Manufacturing Operations Manager Relationship Specialty Start Date End Date No, Physician PCP - General 02/25/24 documented as of this encounter
--- OUTSIDE RECORDS SUMMARY | 2024-10-06 03:41 | XMS_ITS | Encounter Summary ---
Author Organization [facility] Healthcare Address [address] [place] [address] Care Team Providers Care [employer] Professor Name Role Phone No, Physician Primary Care Provider [phone] Reason for Visit * Auth/Cert (Routine) Specialty Diagnoses / Procedures Referred By Contac t Referred To Contact Diagnoses Preeclampsia, unspecified trimester Hypertension Procedures N/A Referral ID Status Reason Start Date Expiration Date Visits Re quested Visits Authorized [id number] 1 1 Encounter Details Date Type Department Care Team (Late st Contact Info) Description 09/19/2024 1:30 PM HOSPITALIST - 09/19/2024 4:05 PM HOSPITALIST Surgery [address] [address] Josefina Peter MD [address] [address] SECTION Surgery Details Date/Time Status Location OR Service Patient Class Case Class Case Type Trauma Case? 09/19/2024 1:30 PM Posted [facility] L&D OR L&D OR 1 Obstetrics / Gynecology Inpatient Panel 1 Procedure LRB Anes Op Region Wound Class Comments SECTION N/A Choice Abdomen Class II - Cl donovan Contaminated Surgeon Surgeon Role Service Panel Joellen Schilling MD Fellow Obstetrics / Gyne cology 1 Anastasia Plaza MD Resident - Assisting Obstetri cs / Gynecology 1 Rey Quinonez MD Resident - Assisting Obstetrics / Gynecology 1 Josefina Peter MD Primary Obstetrics / Gynecology 1 Case Notes PreE w/ SF and Multiple gestation documented in this encounter Social History Tobacco Use Types Packs/Day Years Used Date Smoking Tobacco: Never Smokeless Tobacco: Never [facility] Utilities Answer Date Recorded In the [...] often do you attend chur ch or shinto services? Never 07/29/2024 Do you belong to any clubs o r organizations such as anglican groups, unions, fraternal or athletic groups, or [...] staff should administer the PHQ-9) 0 07/28/2024 [facility] of Occupat ional [facility] - Occupational Stress Questionnaire Answer Date Recorded [...] things needed for daily living? No 07/29/2024 Gambell Depression Scale Answer Date Recorded Gambell Depression Scale Total 8 07/12/2024 The thought [...] any time in the past 12 m [facility], were you homeless or living in a [place] health care facility (including now)? No 07/29/2024 Personal Safety Answer Date Recorded Have you ever been in or are you currently in a harmful physical or emotional relationship or is someone making you feel afraid or unsafe? Denies 07/29/2024 Comments No Sex and Gender Information Value Date Recorded Sex Assigned at Not on file Legal Sex Female 2:19 AM HOSPITALIST Gender Identity Not on file Sexual Orientation Not on file documented as of this encounter Last Filed Vital Signs Vital Sign Reading Time Taken Comments Blood Pressure 134/77 09/19/2024 4:05 PM HOSPITALIST Pulse 80 09/19/2024 4:05 PM HOSPITALIST Temperature 36.7 ??C (98 ??F) 09/19/2024 6:09 AM HOSPITALIST Respiratory Rate 20 09/19/2024 4:05 PM HOSPITALIST Oxygen Saturation 100% 09/19/2024 4:05 PM HOSPITALIST Inhaled Oxygen Concentration - - Weight 128.8 [...] 09/19/2024t 2:59 PM Delivery method: Regino Leon [[id number]] [351] Morales Leon [[id number]] [351] Primary Discharge Diagnosis: Intrauterine at 34w0d, [...] No Hospital Course: ANTEPARTUM HOSPITAL COURSE: Suki Leon is a [...] follow up with her primary OB team ([facility]). Symptoms of preeclampsia have been reviewed. # [...] Blood pressures well controlled on N120XL and O505TKG. CBC/CMP WNL, UPC 0.1.Enrolled in remote blood [...] # Disposition: Follow up task sent to [facility] scheduling pool for appointments in 2 and 6 weeks. They are enrolled in remote blood pressure monitoring for their BP check. Desires discharge home today. Service Coverage These phones are service phones and carried 27/04 in house: R1 (first call) [phone] R1 alt (second call) [phone] R4 (Chief) [phone] See full physical exam from progress note [...] Provider Department Center 10/13/2024 1:40 PM MFM ENVIRONMENTAL PLANNING ENGINEER [facility] 7 OB CATALINA Tena 09/22/24 I reviewed and edited the above for accuracy & clarity Willie Kelly MD ITALIST ITALIST documented in this encounter Discharge Instructions * Discharge Instructions* Ana Gauthier NP - 09/20/2024 10:10 AM HOSPITALIST Images from the original note were not included. Discharge Instructions - Section For any concerns call our OB communication center at [phone] 27/04. * If you have SEVERE illness [...] hours). Do NOT supplement unless instructed by Industrial Specialist. Call your Industrial Specialist if your baby has poor eating habits (examples: feedings decrease, no feedings in 6 hours, or infant spits up more than ?? of their [...] call our centralized OB communication center at [phone]. Do not come to the hospital or clinic until you speak with a provider. Contact Information for your primary OB: [facility] - [address] [place] [address] Call to schedule an appointment to be [...] right, call our OB communication center at [phone]. High blood pressure problems during & after [...] should call the doctor if you experience: nursing home risks of preeclampsia If you had preeclampsia [...] 12 hours or as directed by . Doctor's comments: Okay to dispense 5% Commonly [...] 200 mg capsule Commonly known as: PROMETRIUM ITALIST ITALIST documented in this encounter Medications at Time [...] within 12 hours or as directed by 10 patch 09/22/2024 5 NIFEdipine (PROCARDIA XL/ADALAT [...] in this encounter Progress Notes * Ana Gauthier, ENVIRONMENTAL PLANNING ENGINEER - 09/22/2024 9:10 AM CST Post Progress Note Admission Date: 07/29/2024 SUBJECTIVE Suki Salgadoth Edward is a 29 y.o. postop day 3 s/p Regino Leon [[id number]] Morales Leon [[id number]] . Pain: Controlled Bleeding: lochia minimal Oral [...] ABORH O Negative 09/20/2024 IDCOOMB Negative 09/18/2024 [id number] Nonreactive 08/13/2024 LABRPR Nonreactive 08/13/2024 RUBELIGG Reactive [...] AND calcium gluconate AND Magnesium cyclobenzaprine ibuprofen dgeewfq-fqkwb-cxyhbhh ondansetron ODT OR ondansetron oxyCODONE simethicone sodium chloride 0.9% ASSESSMENT/PLAN Suki Leon is a 29 y.o. female postop day 3 s/p Regino Leon [[id number]] Morales Leon [[id number]] . Problem Care Following Delivery # ID: [...] Blood pressures well controlled on N120XL and T240SJI. CBC/CMP WNL, UPC 0.1.Enrolled in remote blood [...] # Disposition: Follow up task sent to [facility] scheduling pool for appointments in 2 and 6 weeks. They are enrolled in remote blood pressure monitoring for their BP check. Desires discharge home today. Service Coverage These phones are service phones and carried 27/04 in house: R1 (first call) [phone] R1 alt (second call) [phone] R4 (Chief) [phone] CATALINA Tena 09/22/24 Cosigned by Willie Kelly MD at 09/22/2024 4:18 PM HOSPITALIST ITALIST ITALIST * Marge Castro RD - 09/21/2024 3:22 [...] Adult Diet Regular Diet effective now Question: ([facility]) Diet type Answer: Regular 09/19/24 1634 Assessment / Impression: Attempted to see patient for follow-up nutrition screen, but she was not in the room at time of visit. She is on a regular diet and previously reported good PO intake. Per progress notes she plans to breast feed. Left breast feeding nutrition therapy education at bedside. Marge Castro MS, RD, CNSC, LD Cell ITALIST * Millie Pierce LCSW - 09/21/2024 12:19 PM CST Reason for Admission RITA (Suki Leon 1995) was admitted on 07/29/2024 for Preeclampsia, unspecifiedtrimester [O14.90]. Social Work met with Suki Leon for check in. 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 Pediatric follow-up to be scheduled throughout twins' admission to the [facility] NICU. Medical insurance coverage is through [employer], [place]. Information Pt. delivered twin baby's with a of 09/19/24. Twins' EGA's are . Baby boy A's name is Regino and weighed 5lb 8.2oz at delivery. Baby boy B's name is Morales and weighed 4lb 3oz. Pt. delivered via . Babies were admitted to the [facility] NICU. Pt. plans to breast feed the twins and is currently pumping. These are the Pt.'s first children. admitted to [facility] NICU re: prematurity, RDS. Social History Current address is [address] [place] [id number], where she lives with her . Currently [phone] (home) is the best phone number for future contact. MOB reports that her and their families will be a positive support for her and her child. Father of the baby, Florentino Leon, can be reached at [phone]. FOB has been present and supportive at the hospital. Mood and Anxiety Maternal history of anxiety. SW and MOB discussed mental health and coping throughout inpatient APUadmission. MOB continues to report manageable mood and is adjusting as expected to twins' admssion to [facility] NICU. SW and MOB discussed [...] are provided in Welcome Folder. SW reviews [facility] NICU SW and [facility] support [...] etc. Family eligible for local lodging referrals ([place], [place])- This clinician reviews [facility] resources, including waitlist and need for background checks to be completed prior to their entry. Family understanding and agreeable to referral- this clinician completes referral, as requested. [facility] SW provides support and encouragement. Family denies having any questions or concerns for this clinician. Strengths MOB is open and receptive to Social Work intervention, education, and resources. Safe Discharge Plan [facility] SW to collaborate with [facility] NICU SW (Sim Georgestheodore, ) for family care handoff, as needed. NICU SW will follow up with family throughout remainder of infant's admission to [facility]. No further [facility] SW needs indicated at this time. ARACELIS Tyler, LITERACY COACH [facility] Clinical Pharmaceutical Specialty Representative Women and Infants Units ITALIST * Ana Gauthier NP - 09/21/2024 8:55 AM CST Post Progress Note Admission Date: 07/29/2024 SUBJECTIVE Suki Leon is a 29 y.o. postop day 2 s/p Tiffany Leon [[id number]] Nancy Leon [[id number]] . Pain: moderately Controlled Bleeding: lochia minimal [...] ABORH O Negative 09/20/2024 IDCOOMB Negative 09/18/2024 [id number] Nonreactive 08/13/2024 LABRPR Nonreactive 08/13/2024 RUBELIGG Reactive [...] AND calcium gluconate AND Magnesium cyclobenzaprine ibuprofen idxahrx-vjcmo-bictiof ondansetron ODT OR ondansetron oxyCODONE simethicone sodium chloride 0.9% varicella zoster ASSESSMENT/PLAN Suki Leon is a 29 y.o. female postop day 2 s/p Tiffany Leon [[id number]] Nancy Leon [[id number]] . Problem Care Following Delivery # ID: [...] Blood pressures well controlled on N120XL and Q532GRU. CBC/CMP WNL, UPC 0.1.Enrolled in remote blood [...] # Disposition: Follow up task sent to [facility] scheduling pool for appointments in 2 and 6 weeks. They are enrolled in remote blood pressure monitoring for their BP check. Continue routine postoperative care. Service Coverage These phones are service phones and carried 27/04 in house: R1 (first call) [phone] R1 alt (second call) [phone] R4 (Chief) [phone] CATALINA Tena 09/21/24 Cosigned by Angelica Amin MD at 09/21/2024 5:43 PM HOSPITALIST ITALIST ITALIST ITALIST Associated attestation - Angelica Amin MD - 09/21/2024 5:43 PM HOSPITALIST The nurse practitioner saw and examined the patient, we discussed their findings, and I am in agreement with the plan based on the discussion with the nurse practitioner. I did not personally examinethe patient as she was out of her room at the time of rounding. Angelica Amin MD * Carola Murphy - 09/20/2024 1:15 PM CST Chaplain Carola Murphy [facility] Spiritual Care Triage: [phone] 09/20/24 1300 Time Spent Start Time 1300 Stop Time 1315 Time Calculation (min) 15 min Clinical Encounter Type Visited With Patient Response Type Routine visit;Continuing visit Routine Visit Follow-up Reason for visit Support Outcomes and Progress Demonstrating care and respect Achieved Establish rapport and connectedness Achieved Interventions Interventions Offer emotional support ITALIST * Marielle Shanks DO - 09/20/2024 6:47 AM CST Post Progress Note Delivery Date/Time: 09/19/2024t 2:59 PM Delivery method: Tiffany Leon [[id number]] [351] Nancy Leon [[id number]] [351] Subjective uSki Leon is a 29 y.o. POD#1 from [facility]. Doing well this morning, does notlike [...] AND calcium gluconate AND Magnesium HYDROmorphone ibuprofen scsypti-iudxm-kvmfmai naloxone ondansetron ondansetron ODT OR ondansetron oxyCODONE [...] Blood pressures well controlled on N120XL and R772IOF. CBC/CMP WNL, UPC 0.1. To be enrolled [...] # Disposition: Follow up task sent to [facility] scheduling pool for appointments in 2 and 6 weeks. They are enrolled in remote blood pressure monitoring for their BP check. Continue routine postoperative care. Service Coverage These phones are service phones and carried 27/04 in house: R1 (first call) [phone] R1 alt (second call) [phone] R4 (Chief) [phone] Marielle Shanks DO Resident Physician, PGY-1 Department of Obstetrics & Gynecology R4 Attestation I agree with the above documentation. POD#1 scheduled pLTCS for Shay and PreEwSF. Continues on MgSO4 until this afternoon 1500, BPs well controlled on current 2 agent regimen. Continue routine care. Sue Rodriguez MD PGY-4 Cosigned by Abigail Alberto MD at 09/20/2024 6:12 PM HOSPITALIST ITALIST ITALIST ITALIST Associated attestation - Abigail Alberto MD - 09/20/2024 6:12 PM HOSPITALIST I have seen and examined the patient [...] 18 BP: (123-140)/(77-87) 123/79 FHR: reactive NST [place]: no regular contractions Physical Exam General: No [...] Josefina Peter MD at 10/05/2024 8:24 PM HOSPITALIST ITALIST ITALIST Associated attestation - Josefina Peter MD - 10/05/2024 8:24 PM HOSPITALIST I have seen and examined the patient [...] 18 BP: (112-135)/(62-89) 135/89 FHR: reactive NST [place]: no regular contractions Physical Exam General: No [...] Sandra Christy MD at 09/18/2024 8:19 AM HOSPITALIST ITALIST ITALIST Associated attestation - Sandra Christy MD - 09/18/2024 8:19 AM HOSPITALIST I have seen and examined the patient. [...] BP: (117-136)/(76-91) 133/81 FHR: reactive NST x2 [place]: no regular contractions Physical Exam General: No [...] difficult to visualize. - s/p NICU consult 11/6 #Depression/ Anxiety - Previously on SSRI, stable [...] Sandra Christy MD at 09/17/2024 8:19 AM HOSPITALIST ITALIST ITALIST Associated attestation - Sandra Christy MD - 09/17/2024 8:19 AM HOSPITALIST I have seen and examined the patient. I agree with the findings and plan of care as documented in this note. Sandra Christy MD MS Maternal- Medicine * Carola Murphy - 09/16/2024 11:15 AM CST Chaplain Carola Murphy [facility] Spiritual Care Triage: [phone] 09/16/24 1100 Time Spent Start Time 1100 Stop Time 1115 Time Calculation (min) 15 min Clinical Encounter Type Visited With Patient Response Type Routine visit;Continuing visit Routine Visit Follow-up Reason for visit Support Outcomes and Progress Demonstrating care and respect Achieved Establish rapport and connectedness Achieved Interventions Interventions Offer emotional support;Offer spiritual/shinto support;Prayer ITALIST * Rey Quinonez MD - 09/16/2024 7:00 [...] BP: (119-136)/(70-83) 126/79 FHR: reactive NST x2 [place]: no regular contractions Physical Exam General: No [...] Sandra Christy MD at 09/16/2024 9:27 AM HOSPITALIST ITALIST ITALIST Associated attestation - Sandra Christy MD - 09/16/2024 9:27 AM HOSPITALIST I have seen and examined the patient. [...] All questions answered. Plan to schedule CS [id number] and continue daily testing. Joellen Schilling MD Maternal- Medicine Fellow ITALIST * Anastasia Plaza MD - 09/15/2024 7:57 [...] BP: (122-137)/(61-88) 124/61 FHR: reactive NST x2 [place]: no regular contractions Physical Exam General: No [...] Sandra Christy MD at 09/15/2024 11:55 AM HOSPITALIST ITALIST ITALIST Associated attestation - Sandra Christy MD - 09/15/2024 11:55 AM HOSPITALIST I have seen and examined the patient. [...] EVENTS - NAEON - BPs mostly MR SUBJECTIVE Feels well,. No complaints. Review of Systems Negative except as per above OBJECTIVE Vitals: Temp: [36.6 ??C (97.8 ??F)-36.8 ??C (98.3 ??F)] 36.6 ??C (97.9 ??F) Pulse: [93-108] 108 Resp: [16-18] 17 BP: (127-141)/(86-99) 140/91 FHR: reactive NST x2 [place]: no regular contractions Physical Exam General: No [...] note. Sandra Christy MD MS Maternal- Medicine ITALIST ITALIST * Millie Pierce LCSW - 09/13/2024 2:28 PM CST Reason for Admission Pt (Suki Kraft Edward 1995) was admitted on 07/29/2024 for Preeclampsia, unspecified trimester [O14.90]. Pt discussed in DCAM rounds with medical team. Per DCAM rounds, pt remains admitted to the APU due to ongoing medical needs. SW to follow for coping, adjustment to diagnosis as needed, and assess for social needs. SW remains available. ARACELIS Tyler, LITERACY COACH [facility] Clinical Pharmaceutical Specialty Representative Women and Infants Units ITALIST * Anastasia Plaza MD - 09/13/2024 7:11 [...] BP: (120-137)/(71-92) 131/84 FHR: reactive NST x2 [place]: no regular contractions Physical Exam General: No [...] normal UA dopplers, MCA 1.11 MoM - BMZ^10/26 @2330 - Mg stopped 07/29 - PCN [...] Sandra Christy MD at 09/13/2024 10:29 AM HOSPITALIST ITALIST ITALIST Associated attestation - Sandra Christy MD - 09/13/2024 10:29 AM HOSPITALIST I have seen and examined the patient. I agree with the findings and plan of care as documented in this note. Sandra Christy MD MS Maternal- Medicine * Carola Murphy - 09/12/2024 11:00 AM CST Chaplain Carola Murphy [facility] Spiritual Care Triage: [phone] 09/12/24 1045 Time Spent Start Time 1045 Stop Time 1100 Time Calculation (min) 15 min Clinical Encounter Type Visited With Patient Response Type Routine visit;Continuing visit Routine Visit Follow-up Reason for visit Support Outcomes and Progress Demonstrating care and respect Achieved Establish rapport and connectedness Achieved Interventions Interventions Offer emotional support;Offer spiritual/shinto support ITALIST * Rey Quinonez MD - 09/12/2024 7:24 [...] BP: (120-143)/(76-90) 125/87 FHR: reactive NST x2 [place]: no regular contractions Physical Exam General: No [...] Sandra Christy MD at 09/12/2024 9:25 AM HOSPITALIST ITALIST ITALIST Associated attestation - Sandra Christy MD - 09/12/2024 9:25 AM HOSPITALIST I have seen and examined the patient. [...] BP: (124-139)/(79-87) 136/79 FHR: reactive NST x2 [place]: no regular contractions Physical Exam General: No [...] nexplanon - AC: BID ppx lovenox Anastasia Bola, MD 09/11/24 Cosigned by Sara Eng MD at 09/11/2024 9:48 AM HOSPITALIST ITALIST ITALIST Associated attestation - Sara Eng MD - 09/11/2024 9:48 AM HOSPITALIST I have seen and examined the patient [...] BP: (124-134)/(78-86) 125/81 FHR: reactive NST x2 [place]: no regular contractions Physical Exam General: No [...] Nini Cortez MD at 09/10/2024 3:14 PM HOSPITALIST ITALIST ITALIST Associated attestation - Nini Cortez MD - 09/10/2024 3:14 PM HOSPITALIST MFM Attending Attestation I have seen and [...] BP: (121-138)/(72-87) 130/76 FHR: reactive NST x2 [place]: no regular contractions Physical Exam General: No [...] Sara Eng MD at 09/09/2024 12:11 PM HOSPITALIST ITALIST ITALIST Associated attestation - Sara Eng MD - 09/09/2024 12:11 PM HOSPITALIST I have seen and examined the patient on 09/09/24. I agree with the findings and plan of care as documented in the resident's/fellow's note. Sara Eng MD. * Raffi Murphya Wilson - 09/08/2024 11:40 AM CST Chaplain Carola Murphy [facility] Spiritual Care Triage: [phone] 09/08/24 1100 Time Spent Start Time 1120 Stop Time 1140 Time Calculation (min) 20 min Clinical Encounter Type Visited With Patient Response Type Routine visit;Continuing visit Routine Visit Follow-up Reason for visit Support Outcomes and Progress Demonstrating care and respect Achieved Establish rapport and connectedness Achieved Interventions Interventions Offer emotional support;Offer spiritual/shinto support ITALIST * Anastaisa Plaza MD - 09/08/2024 7:34 AM CST Antepartum Progress Note Gestational Age: 32w3d Admission Date: 07/29/2024 Length of stay: 41 Admission Diagnosis: preeclampsia with severe features otherwise affected by: Shay twins, 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 Review of Systems Negative except as per above OBJECTIVE Vitals: Temp: [36.6 ??C (97.9 ??F)-37 ??C (98.6 ??F)] 36.6 ??C (97.9 ??F) Pulse: [87-113] 95 Resp: [16-18] 18 BP: (119-138)/(61-87) 138/87 FHR: reactive NST x2 [place]: no regular contractions Physical Exam General: No [...] Sara Eng MD at 09/08/2024 10:42 AM HOSPITALIST ITALIST ITALIST ITALIST Associated attestation - Sara Eng MD - 09/08/2024 10:42 AM HOSPITALIST I have seen and examined the patient [...] Adult Diet Regular Diet effective now Question: ([facility]) Diet type Answer: Regular 07/29/24 1220 Assessment / Impression: Met with patient at bedside. She reported good appetite and PO intake. Recommend weekly weights. RD will continue to monitor. Marge Castro MS, RD, CNSC, LD Cell ITALIST * Anastasia Plaza MD - 09/07/2024 6:27 AM CST [...] BP: (117-173)/(71-96) 120/71 FHR: reactive NST x2 [place]: no regular contractions Physical Exam General: No [...] Sara Eng MD at 09/07/2024 9:34 AM HOSPITALIST ITALIST ITALIST Associated attestation - Sraa Eng MD - 09/07/2024 9:34 AM HOSPITALIST I have seen and examined the patient [...] Rey Quinonez MD Obstetrics and Gynecology, PGY-2 ITALIST * Anastasia Plaza MD - 09/06/2024 7:23 [...] BP: (125-147)/(81-95) 128/87 FHR: reactive NST x2 [place]: no regular contractions Physical Exam General: No acute distress. Lungs: Non-labored. Abdomen: Deferred Extremities: Warm and well-perfused. No bilateral lower extremity calf tenderness. Trace non pitting lower extremity edema Pelvic: Deferred. Neurologic: Deferred Lab Review: Recent Labs Lab Units 09/06/24 04309/03/24 0526 08/31/24 0620 WBC K/cumm 10.3* 12.1* [...] Sara Eng MD at 09/06/2024 11:17 AM HOSPITALIST ITALIST ITALIST Associated attestation - Sara Eng MD - 09/06/2024 11:17 AM HOSPITALIST I have seen and examined the patient [...] gas cards SW remains available. ARACELIS Tyler, LITERACY COACH [facility] Clinical Pharmaceutical Specialty Representative Women and Infants Units ITALIST * Rey Quinonez MD - 09/05/2024 7:11 [...] BP: (125-156)/(78-99) 125/86 FHR: reactive NST x2 [place]: no regular contractions Physical Exam General: No [...] Sara Eng MD at 09/05/2024 9:05 AM HOSPITALIST ITALIST ITALIST Associated attestation - Sara Eng MD - 09/05/2024 9:05 AM HOSPITALIST I have seen and examined the patient [...] BP: (127-141)/(78-90) 127/90 FHR: reactive NST x2 [place]: no regular contractions Physical Exam General: No [...] have edited where appropriate. Josefina Peter MD ITALIST ITALIST * Josefina Peter MD - 09/03/2024 7:07 [...] BP: (127-156)/(69-111) 132/88 FHR: reactive NST x2 [place]: no regular contractions Physical Exam General: No [...] have edited where appropriate. Josefina Peter MD ITALIST ITALIST * Nini Melendez MD - 09/02/2024 10:59 AM CST R2 Update: Patient persistently MR, will give additional 30 mg NXL now and increase to 120 mg NXL tomorrow AM. Ashley Melendez MD MPH PGY2 OBGYN ITALIST * Maureen Calix MD - 09/02/2024 7:13 [...] BP: (125-141)/(60-94) 125/60 FHR: reactive NST x2 [place]: no regular contractions Physical Exam General: No [...] Jessica Naranjo MD at 09/02/2024 9:53 AM HOSPITALIST ITALIST ITALIST Associated attestation - Jessica Naranjo MD - 09/02/2024 9:53 AM HOSPITALIST Images from the original note were not [...] Asymptomatic. Continue inpatient management. Jessica Naranjo MD [employer] Division of Maternal- Medicine and Ultrasound Department of Obstetrics and Gynecology [facility] 09/02/2024 * Maureen Calix MD - 09/01/2024 [...] BP: (126-139)/(84-103) 131/91 FHR: reactive NST x2 [place]: no regular contractions Physical Exam General: No [...] Jessica Naranjo MD at 09/01/2024 9:34 AM HOSPITALIST ITALIST ITALIST Associated attestation - Jessica Naranjo MD - 09/01/2024 9:34 AM HOSPITALIST Images from the original note were not [...] Asymptomatic. Continue inpatient management. Jessica Naranjo MD [employer] Division of Maternal- Medicine and Ultrasound Department of Obstetrics and Gynecology [facility] in [facility] 09/01/2024 * Maggi Huang LCSW - 08/31/2024 4:01 PM CST Reason for [...] for pt's to travel between home and [facility] to provide support. SW remains available. Maggi Huang MSW, LITERACY COACH Social Work ITALIST * Anastasia Plaza MD - 08/31/2024 6:46 [...] BP: (118-140)/(69-94) 140/94 FHR: reactive NST x2 [place]: no regular contractions Physical Exam General: No [...] Nini Cortez MD at 08/31/2024 12:26 PM HOSPITALIST ITALIST ITALIST Associated attestation - Nini Cortez MD - 08/31/2024 12:26 PM HOSPITALIST MFM Attending Attestation I have seen and [...] BP: (132-137)/(75-92) 132/83 FHR: reactive NST x2 [place]: no regular contractions Physical Exam General: No [...] IOL @ 0530 #sinus tachycardia, intermittent - 10/31 episode of tachycardia to 130-140s - EKG [...] Nini Cortez MD at 08/30/2024 11:35 AM HOSPITALIST ITALIST ITALIST Associated attestation - Nini Cortez MD - 08/30/2024 11:35 AM HOSPITALIST MFM Attending Attestation I have seen and examined the patient, Suki Leon, on 08/30/2024 and I am in agreement with the plan as documented in the resident/fellow/CARLI's note. Nini Cortez MD 08/30/2024 * Maureen Calix MD - 08/29/2024 7:19 AM CST Antepartum [...] BP: (123-145)/(75-92) 123/75 FHR: reactive NST x2 [place]: no regular contractions Physical Exam General: No [...] Nini Cortez MD at 08/29/2024 9:11 AM HOSPITALIST ITALIST ITALIST Associated attestation - Nini Cortez MD - 08/29/2024 9:11 AM HOSPITALIST MFM Attending Attestation I have seen and [...] Meena Khalil MD PGY-2 Obstetrics & Gynecology ITALIST * Anastasia Plaza MD - 08/28/2024 6:26 [...] BP: (130-135)/(84-97) 135/86 FHR: reactive NST x2 [place]: no regular contractions Physical Exam General: No [...] Kaela Mcallister MD at 08/28/2024 7:37 AM HOSPITALIST ITALIST ITALIST Associated attestation - Kaela Mcallister MD - 08/28/2024 7:37 AM HOSPITALIST I have seen and examined the patient [...] BP: (125-135)/(69-93) 127/84 FHR: reactive NST x2 [place]: no regular contractions Physical Exam General: No [...] Kaela Mcallister MD at 08/27/2024 8:46 AM HOSPITALIST ITALIST ITALIST Associated attestation - Kaela Mcallister MD - 08/27/2024 8:46 AM HOSPITALIST I have seen and examined the patient [...] BP: (124-138)/(74-92) 127/82 FHR: reactive NST x2 [place]: no regular contractions Physical Exam General: No [...] Byron Lakhani MD at 08/26/2024 1:03 PM HOSPITALIST ITALIST ITALIST Associated attestation - Byron Lakhani MD - 08/26/2024 1:03 PM HOSPITALIST I have seen and examined the patient [...] BP: (129-139)/(81-90) 130/90 FHR: reactive NST x2 [place]: no regular contractions Physical Exam General: No [...] Byron Lakhani MD at 08/25/2024 10:24 AM HOSPITALIST ITALIST ITALIST Associated attestation - Byron Lakhani MD - 08/25/2024 10:24 AM HOSPITALIST I have seen and examined the patient [...] BP: (129-142)/(79-95) 139/84 FHR: reactive NST x2 [place]: no regular contractions Physical Exam General: No [...] through Thursday 8a-7p APU R2 (first call) [phone] APU R3 (chief) [phone] Evenings 7p-8am Weekend Thursday 6pm through Thursday 8am Labor R2 (first call) [phone] Labor R4 (chief) [phone] Cosigned by Byron Lakhani MD at 08/24/2024 9:37 AM HOSPITALIST ITALIST ITALIST Associated attestation - Byron Lakhani MD - 08/24/2024 9:37 AM HOSPITALIST I have seen and examined the patient [...] BP: (128-139)/(78-90) 128/84 FHR: reactive NST x2 [place]: no regular contractions Physical Exam General: No [...] through Thursday 8a-7p APU R2 (first call) [phone] APU R3 (chief) [phone] Evenings 7p-8am Weekend Thursday 6pm through Thursday 8am Labor R2 (first call) [phone] Labor R4 (chief) [phone] Cosigned by Byron Lakhani MD at 08/23/2024 9:19 AM HOSPITALIST ITALIST ITALIST Associated attestation - Byron Lakhani MD - 08/23/2024 9:19 AM HOSPITALIST I have seen and examined the patient [...] Adult Diet Regular Diet effective now Question: ([facility]) Diet type Answer: Regular 07/29/24 1220 Assessment / Impression: Met with patient at bedside. She reported good appetite and PO intake. Recommend weekly weights. RD will continue to monitor. Marge Castro MS, RD, [facility], Cell ITALIST * Millie Pierce LCSW - 08/22/2024 10:18 [...] 09/19 SW remains available. ARACELIS Tyler, LEO [facility] Clinical Pharmaceutical Specialty Representative Women and Infants Units ITALIST * Anastasia Plaza MD - 08/22/2024 7:18 [...] BP: (126-141)/(81-89) 134/89 FHR: reactive NST x2 [place]: no regular contractions Physical Exam General: No [...] through Thursday 8a-7p APU R2 (first call) [phone] APU R3 (chief) [phone] Evenings 7p-8am Weekend Thursday 6pm through Thursday 8am Labor R2 (first call) [phone] Labor R4 (chief) [phone] Cosigned by Byron Lakhani MD at 08/22/2024 9:45 AM HOSPITALIST ITALIST ITALIST Associated attestation - Byron Lakhani MD - 08/22/2024 9:45 AM HOSPITALIST I have seen and examined the patient [...] BP: (131-138)/(84-91) 131/84 FHR: reactive NST x2 [place]: no regular contractions Physical Exam General: No [...] 0530 - MOF: breast - MOC: teto Calix MD 08/21/24 Antepartum Service Coverage Thursday through Thursday 8a-7p APU R2 (first call) [phone] APU R3 (chief) [phone] Evenings 7p-8am Weekend Thursday 6pm through Thursday 8am Labor R2 (first call) [phone] Labor R4 (chief) [phone] Cosigned by Libby Berman MD at 08/21/2024 9:27 AM HOSPITALIST ITALIST ITALIST Associated attestation - Libby Berman MD - 08/21/2024 9:27 AM HOSPITALIST I have seen and examined the patient [...] BP: (127-140)/(80-88) 140/88 FHR: reactive NST x2 [place]: no regular contractions Physical Exam General: No [...] through Thursday 8a-7p APU R2 (first call) [phone] APU R3 (chief) [phone] Evenings 7p-8am Weekend Thursday 6pm through Thursday 8am Labor R2 (first call) [phone] Labor R4 (chief) [phone] Cosigned by Leticia Barillas MD at 08/20/2024 7:16 AM HOSPITALIST ITALIST ITALIST Associated attestation - Leticia Barillas MD - 08/20/2024 7:16 AM HOSPITALIST I have personally seen and evaluated the [...] BP: (127-139)/(82-96) 127/82 FHR: reactive NST x2 [place]: no regular contractions Physical Exam General: No [...] through Thursday 8a-7p APU R2 (first call) [phone] APU R3 (chief) [phone] Evenings 7p-8am Weekend Thursday 6pm through Thursday 8am Labor R2 (first call) [phone] Labor R4 (chief) [phone] Cosigned by Leticia Barillas MD at 08/19/2024 9:49 AM HOSPITALIST ITALIST ITALIST Associated attestation - Leticia Barillas MD - 08/19/2024 9:49 AM HOSPITALIST I have personally seen and evaluated the [...] BP: (124-141)/(73-83) 124/81 FHR: reactive NST x2 [place]: no regular contractions Physical Exam General: No [...] MOF: breast - MOC: teto Plaza MD 08/18/24 Antepartum Service Coverage Thursday through Thursday 8a-7p APU R2 (first call) [phone] APU R3 (chief) [phone] Evenings 7p-8am Weekend Thursday 6pm through Thursday 8am Labor R2 (first call) [phone] Labor R4 (chief) [phone] Cosigned by Leticia Barillas MD at 08/18/2024 5:08 PM HOSPITALIST ITALIST ITALIST Associated attestation - Leticia Barillas MD - 08/18/2024 5:08 PM HOSPITALIST I have personally seen and evaluated the [...] BP: (122-131)/(77-83) 131/77 FHR: reactive NST x2 [place]: no regular contractions Physical Exam General: No [...] through Thursday 8a-7p APU R2 (first call) [phone] APU R3 (chief) [phone] Evenings 7p-8am Weekend Thursday 6pm through Thursday 8am Labor R2 (first call) [phone] Labor R4 (chief) [phone] Cosigned by Leticia Barillas MD at 08/17/2024 8:25 AM HOSPITALIST ITALIST ITALIST Associated attestation - Leticia Barillas MD - 08/17/2024 8:25 AM HOSPITALIST I have personally seen and evaluated the [...] BP: (132-141)/(77-90) 132/78 FHR: reactive NST x2 [place]: no regular contractions Physical Exam General: No [...] through Thursday 8a-7p APU R2 (first call) [phone] APU R3 (chief) [phone] Evenings 7p-8am Weekend Thursday 6pm through Thursday 8am Labor R2 (first call) [phone] Labor R4 (chief) [phone] Cosigned by Leticia Barillas MD at 08/16/2024 9:45 AM HOSPITALIST ITALIST ITALIST Associated attestation - Leticia Barillas MD - 08/16/2024 9:45 AM HOSPITALIST I have personally seen and evaluated the [...] until delivery SW remains available. ARACELIS Tyler, LITERACY COACH [facility] Clinical Pharmaceutical Specialty Representative Women and Infants Units ITALIST * Anastasia Plaza MD - 08/15/2024 7:17 [...] BP: (117-137)/(69-90) 131/85 FHR: reactive NST x2 [place]: no regular contractions Physical Exam General: No [...] TBD - MOF: breast - MOC: teto Plaza MD 08/15/24 Antepartum Service Coverage Thursday through Thursday 8a-7p APU R2 (first call) [phone] APU R3 (chief) [phone] Evenings 7p-8am Weekend Thursday 6pm through Thursday 8am Labor R2 (first call) [phone] Labor R4 (chief) [phone] Cosigned by Leticia Barillas MD at 08/15/2024 8:57 AM HOSPITALIST ITALIST ITALIST Associated attestation - Leticia Barillas MD - 08/15/2024 8:57 AM HOSPITALIST I have personally seen and evaluated the [...] BP: (125-130)/(76-85) 128/85 FHR: reactive NST x2 [place]: no regular contractions Physical Exam General: No [...] through Thursday 8a-7p APU R2 (first call) [phone] APU R3 (chief) [phone] Evenings 7p-8am Weekend Thursday 6pm through Thursday 8am Labor R2 (first call) [phone] Labor R4 (chief) [phone] Cosigned by Niin Knapp MD at 08/14/2024 7:19 AM HOSPITALIST ITALIST ITALIST Associated attestation - Nini Knapp MD - 08/14/2024 7:19 AM HOSPITALIST I have seen and examined the patient on 08/14/24. I agree with the findings and plan of care as documented in the resident's/fellow's note. Some new ear pain without other URI sypmtoms- will perform exam. * Nini Knapp MD - 08/13/2024 9:35 AM CST err ITALIST * Mariela Dyson MD - 08/13/2024 7:19 [...] BP: (121-139)/(73-85) 129/82 FHR: reactive NST x2 [place]: no regular contractions Physical Exam General: No [...] teto Voss MD Obstetrics and Gynecology PGY-3 08/13/24 Antepartum Service Coverage Thursday through Thursday 8a-7p APU R2 (first call) [phone] APU R3 (chief) [phone] Evenings 7p-8am Weekend Thursday 6pm through Thursday 8am Labor R2 (first call) [phone] Labor R4 (chief) [phone] Cosigned by Nini Knapp MD at 08/14/2024 7:15 AM HOSPITALIST ITALIST ITALIST Associated attestation - Nini Knapp MD - 08/14/2024 7:15 AM HOSPITALIST I have seen and examined the patient [...] BP: (123-137)/(77-89) 131/79 FHR: reactive NST x2 [place]: no regular contractions Physical Exam General: No [...] through Thursday 8a-7p APU R2 (first call) [phone] APU R3 (chief) [phone] Evenings 7p-8am Weekend Thursday 6pm through Thursday 8am Labor R2 (first call) [phone] Labor R4 (chief) [phone] Cosigned by Byron Lakhani MD at 08/12/2024 10:13 AM HOSPITALIST ITALIST ITALIST Associated attestation - Kar, Byron Ayala MD - 08/12/2024 10:13 AM HOSPITALIST I have seen and examined the patient [...] BP: (126-140)/(68-92) 140/84 FHR: reactive NST x2 [place]: no regular contractions Physical Exam General: No [...] through Thursday 8a-7p APU R2 (first call) [phone] APU R3 (chief) [phone] Evenings 7p-8am Weekend Thursday 6pm through Thursday 8am Labor R2 (first call) [phone] Labor R4 (chief) [phone] Cosigned by Byron Lakhani MD at 08/11/2024 9:19 AM HOSPITALIST ITALIST ITALIST Associated attestation - Byron Lakhani MD - 08/11/2024 9:19 AM HOSPITALIST I have seen and examined the patient [...] BP: (127-138)/(67-90) 135/71 FHR: reactive NST x2 [place]: no regular contractions Physical Exam General: No [...] through Thursday 8a-7p APU R2 (first call) [phone] APU R3 (chief) [phone] Evenings 7p-8am Weekend Thursday 6pm through Thursday 8am Labor R2 (first call) [phone] Labor R4 (chief) [phone] Cosigned by Byron Lakhani MD at 08/10/2024 8:54 AM HOSPITALIST ITALIST ITALIST Associated attestation - Byron Lakhani MD - 08/10/2024 8:54 AM HOSPITALIST I have seen and examined the patient [...] BP: (123-146)/(77-90) 128/79 FHR: reactive NST x2 [place]: no regular contractions Physical Exam General: No [...] through Thursday 8a-7p APU R2 (first call) [phone] APU R3 (chief) [phone] Evenings 7p-8am Weekend Thursday 6pm through Thursday 8am Labor R2 (first call) [phone] Labor R4 (chief) [phone] Cosigned by Byron Lakhani MD at 08/09/2024 10:16 AM HOSPITALIST ITALIST ITALIST ITALIST Associated attestation - Byron Lahkani MD - 08/09/2024 10:16 AM HOSPITALIST I have seen and examined the patient on 08/09/24. I agree with the findings and plan of care as documented in the resident's/fellow's note.. * Carola Murphy - 08/08/2024 2:43 PM CST Chaplain Carola Murphy [facility] Spiritual Care Triage: [phone] 08/08/24 1400 Time Spent Start Time 1410 Stop Time 1420 Time Calculation (min) 10 min Patient Spiritual Assessment Spirituality Assessed Focus of Care Clinical Encounter Type Visited With Patient Response Type Routine visit Routine Visit Introduction Reason for visit Support Outcomes and Progress Demonstrating care and respect Achieved Interventions Interventions Offer emotional support;Offer spiritual/shinto support ITALIST * Millie Pierce LCSW - 08/08/2024 11:43 [...] needs. SW remains available. ARACELIS Tyler, LEO [facility] Clinical Pharmaceutical Specialty Representative Women and Infants Units ITALIST * Maureen Calix MD - 08/08/2024 6:36 [...] BP: (133-149)/(74-91) 134/74 FHR: reactive NST x2 [place]: no regular contractions Physical Exam General: No [...] Byron Lakhani MD at 08/08/2024 9:57 AM HOSPITALIST ITALIST ITALIST Associated attestation - Byron Lakhani MD - 08/08/2024 9:57 AM HOSPITALIST I have seen and examined the patient on 08/08/24. I agree with the findings and plan of care as documented in the resident's/fellow's note.. 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 software engineer web services availability) * Mariela Dyson MD - 08/07/2024 [...] BP: (129-142)/(77-82) 129/78 FHR: reactive NST x2 [place]: no regular contractions Physical Exam General: No [...] Eve Jenkins MD at 08/07/2024 7:23 AM HOSPITALIST ITALIST ITALIST Associated attestation - Eve Jenkins MD - 08/07/2024 7:23 AM HOSPITALIST Attending Attestation I have seen, examined, and discussed Suki Abena Leon with Dr. Voss on 08/07/2024. Iagree with [...] BP: (115-138)/(67-90) 115/67 FHR: reactive NST x2 [place]: no regular contractions Physical Exam General: No [...] Attestation I have seen, examined, and discussed Sukiletty Salgadoth Leon with Dr. Calix on 08/06/2024. I [...] Adult Diet Regular Diet effective now Question: ([facility]) Diet type Answer: Regular 07/29/24 1220 Assessment / Impression: Met with patient at bedside. She reported good appetite and PO intake. Shereports pre- weight of 260#. Currently 284# as of 08/04. She is tolerating PNV. No nutrition needs identified at this time. RD will continue to monitor. Marge Castro MS, RD, [facility], Cell * Marge Conrad DO - 08/05/2024 12:03 PM CDT Transfusion Medicine [...] future transfusions. Contact Information: Please contact the [facility] Transfusion Medicine Service at (option 1) with [...] blood bank report. Pam Lr MD PhD * [facility] MD - 08/05/2024 7:17 AM CDT [...] BP: (132-144)/(77-94) 132/78 FHR: reactive NST x2 [place]: no regular contractions Physical Exam General: No [...] EKG/Min 110 BPM Atrial Rate 110 BPM IN-Interval (MSEC) 122 ms QRS-Interval (MSEC) 78 ms QT-Interval (MSEC) 334 ms QTc 452 ms P [place] 52 degrees R [place] 5 degrees T [place] 25 degrees Diagnosis Sinus tachycardia Otherwise normal [...] 12:53 PM CDT Associated attestation - Jessica Narajno MD - 08/05/2024 12:53 PM CDT Images [...] on nifedipine 90mg qD. Jessica Naranjo MD [employer] Division of Maternal- Medicine and Ultrasound Department of Obstetrics and Gynecology [facility] in [facility] 08/05/2024 * Sue Meza MD - 08/04/2024 [...] BP: (122-139)/(72-85) 128/76 FHR: reactive NST x2 [place]: no regular contractions Physical Exam General: No [...] complete anatomic survey with particular focus on SOLE STAINER anatomy of twin A today. Jessica Naranjo MD [employer] Division of Maternal- Medicine and Ultrasound Department of Obstetrics and Gynecology [facility] in [facility] 08/04/2024 * Maureen Calix MD - 08/03/2024 6:23 AM CDT Antepartum Progress Note Gestational Age: 27w2d Admission Date: 07/29/2024 Length of stay: 5 Admission Diagnosis: preeclampsia with severe features INTERVAL EVENTS - NAEON - reactive monitoring - normotensive to BPs - plan for anatomy US and [...] BP: (128-143)/(77-98) 137/84 FHR: reactive NST x2 [place]: no regular contractions Physical Exam General: No [...] XL 90 mg qD. Jessica Naranjo MD [employer] Division of Maternal- Medicine and Ultrasound Department of Obstetrics and Gynecology [facility] 08/03/2024 * Maureen Calix MD - 08/02/2024 [...] BP: (128-143)/(73-89) 128/84 FHR: reactive NST x2 [place]: no regular contractions Physical Exam General: No [...] for MCDA twin . Jessica Naranjo MD [employer] Division of Maternal- Medicine and Ultrasound Department of Obstetrics and Gynecology [facility] 08/02/2024 * Millie Pierce, LITERACY COACH - 08/01/2024 12:34 PM CDT Reason for [...] delivery. SW remains available. ARACELIS Tyler, LEO [facility] Clinical Pharmaceutical Specialty Representative Women and Infants Units * Maureen Calix [...] x2 rare age appropriate variables, limited discontinuity [place]: no regular contractions Physical Exam General: No [...] of a preeclampsia headache. Jessica Naranjo MD [employer] Division of Maternal- Medicine and Ultrasound Department of Obstetrics and Gynecology [facility] 08/01/2024 * Maureen Calix [...] variables with 1 hour reassuring monitoring afterwards [place]: no regular contractions Physical Exam General: No [...] normotensive to mild range on arrival to [facility] since transfer - Will give APAP + [...] as documented in the resident's/fellow's note.. * Staley-Maureen Mandujano MD - 07/30/2024 6:52 AM CDT Antepartum Progress Note Gestational Age: 26w5d Admission Date: 07/29/2024 Length of stay: 1 Admission Diagnosis: preeclampsia with severe features INTERVAL EVENTS - NAEON - reactive monitoring - stopped Mag due to stable BPs, started [id number] - normotensive to infrequent MR BPs SUBJECTIVE [...] BMI 47.26 kg/m?? FHR: reactive NST x2 [place]: no regular contractions Physical Exam General: No [...] normotensive to mild range on arrival to [facility] since transfer - Will give APAP + [...] She had associated blurred vision. She presented tot OSH and was found to have BP 170/95 > 166/89. She received IV Labetalol 20 mg and BPs subsequently improved to mild range. She was given 4g Mg bolus > 2g/hr and BMZ x1 prior to transfer. On arrival to [facility] patient reports headache/ blurred vision is markedly improved. Denies RUQ pain, n/v, CTX, VB, LOF. Patient has received consistent care from [facility] Antepartum History: Her has been complicated by Shay twins, new preeclampsia with SF, Rh neg, MO, VZV NI, anxiety/dep. 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 Nexplanon placed without complication per electrical line mechanic's guidelines in the left upper arm. Bandaid placed with pressure dressing. Provider palpated Nexplanon device in place. Patient was able to palpate Nexplanon device. Impression and Plan: -Nexplanon placed without complication. Abigail Alberto MD 09/20/2024 Expiration 07/2026 Lot number [id number] ITALIST * Francisca Yun MD - 09/18/2024 12:45 PM CST 29 y.o. at 33w6d Time on monitor: [id number] Fetus A FHR Baseline: 120 Variability: moderate [...] reassuringtejas Yun MD PGY7 Cosigned by Sandra Chirsty MD at 09/19/2024 3:20 PM HOSPITALIST ITALIST ITALIST ITALIST * Joellen Schilling MD - 09/17/2024 2:58 PM CSTAssociated Order(s): nonstress test Pre-Procedure Diagnose(s): Preeclampsia, unspecified trimester; 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 Post-Procedure Diagnose(s): Preeclampsia, unspecified trimester; 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 nonstress test Date/Time: 09/17/2024 2:58 PM Performed by: Maureen Calix MD Authorized by: Ana M Rogers MD 29 y.o. at 33w5d Time on monitor: [id number] Fetus A FHR Baseline: 125 Variability: moderate [...] Sandra Christy MD at 09/18/2024 9:19 AM HOSPITALIST ITALIST ITALIST ITALIST * Joellen Schilling MD - 09/16/2024 2:44 [...] Sandra Christy MD at 09/16/2024 2:51 PM HOSPITALIST ITALIST ITALIST Associated attestation - Sandra Christy MD - 09/16/2024 2:51 PM HOSPITALIST I have reviewed the tracing and the [...] NST Joellen Schilling MD Maternal- Medicine Fellow ITALIST * Anastasia Plaza MD - 09/14/2024 5:08 [...] Sandra Christy MD at 09/14/2024 7:29 PM HOSPITALIST ITALIST ITALIST Associated attestation - Sandra Christy MD - 09/14/2024 7:29 PM HOSPITALIST I have reviewed the tracing and the interpretation. I agree with the findings. Sandra Christy MD MS Maternal- Medicine * Avery Veloz MD - 09/13/2024 5:13 PM CST Procedures NST Progress Note 29 y.o. at 33w1d admitted for PreEwSF Time on monitor: [id number] Twin A: FHR Baseline: 125bpm Variability: moderate [...] Sandra Christy MD at 09/14/2024 7:28 PM HOSPITALIST ITALIST ITALIST ITALIST * Anastasia Plaza MD - 09/13/2024 5:10 [...] Sandra Christy MD at 09/14/2024 7:28 PM HOSPITALIST ITALIST ITALIST Associated attestdelmar - Sandra Christy MD - 09/14/2024 7:28 PM HOSPITALIST I have reviewed the tracing and the interpretation. I agree with the findings. Sandra Christy MD MS Maternal- Medicine * Rey Quinonez MD - 09/12/2024 4:51 PM CST Procedures NST Progress Note 29 y.o. at 33w0d admitted for PreEwSF Time on monitor: [id number] Twin A: FHR Baseline: 125 Variability: moderate Accelerations: present Decelerations: none Twin B: FHR Baseline: 130 Variability: moderate Accelerations: present Decelerations: none Contractions: absent Reactive: Yes Comments: reactive and reassuring Instructed RN that patient can be taken off the monitor. Rey Quinonez MD Cosigned by Sandra Christy MD at 09/13/2024 5:07 PM HOSPITALIST ITALIST ITALIST Associated atttoma - Sandra Christy MD - 09/13/2024 5:07 PM HOSPITALIST I have reviewed the tracing and the interpretation. I agree with the findings. Sandra Christy MD MS Maternal- Medicine * Judi Huang MD - 09/11/2024 2:39 PM CST Procedures 29 y.o. at 32w6d Time on monitor: 5732-5930 Fetus A FHR Baseline: 125 Variability: moderate Reactive: Yes Decelerations: none Fetus B FHR Baseline: 135 Variability: moderate Reactive: Yes Decelerations: none Contractions: absent Comments: reactive and reassuring I have reviewed NST and instructed RN to take off monitor Judi Huang MD Cosigned by Sara Eng MD at 09/11/2024 4:07 PM HOSPITALIST ITALIST ITALIST Associated attestation - Sara Eng MD - 09/11/2024 4:07 PM HOSPITALIST Attending Attestation - nonstress test I have reviewed the NST of Suki Leon myself. I agree with the interpretation as documented in the resident???s note. Sara Eng MD 09/11/2024 * Mariela Dyson MD - 09/10/2024 2:42 PM CST Procedures 29 y.o. at 32w5d Time on monitor: 1772-1474 Fetus A FHR Baseline: 120 Variability: moderate Reactive: Yes Decelerations: none Fetus B FHR Baseline: 130 Variability: moderate Reactive: Yes Decelerations: none Contractions: absent Comments: reactive and reassuring I have reviewed NST and instructed RN to take off monitor Mariela Voss MD Cosigned by Nini Cortez MD at 09/10/2024 3:14 PM HOSPITALIST ITALIST ITALIST Associated attestation - Nini Cortez MD - 09/10/2024 3:14 PM HOSPITALIST I have independently reviewed the NSTx2 and agree with the documentation. Nini Cortez MD 09/10/2024 * Sara Eng MD - 09/09/2024 1:33 PM CST Procedures Electronic Monitoring/Non-Stress Test Date: 09/09/2024 Time: 2375-7734 Suki Leon is a 29 y.o. female [...] the resident???s note. Sara Eng MD 09/09/2024 ITALIST * Sara Eng MD - 09/08/2024 2:22 PM CST Electronic Monitoring/Non-Stress Test Date: 09/08/2024 Time: 0262-6496 Suki Leon is a 29 y.o. female [...] the resident???s note. Sara Eng MD 09/08/2024 ITALIST * Sara Eng MD - 09/08/2024 1:39 PM CST Procedures Electronic Monitoring/Non-Stress Test Date: 09/08/2024 Time: 9004-4805 Suki Leon is a 29 y.o. female [...] RN to take off monitor CORBY Ashton ITALIST ITALIST * Sara Eng MD - 09/08/2024 12:09 [...] the resident???s note. Sara Eng MD 09/08/2024 ITALIST * Millicent Duran NP - 09/07/2024 12:17 PM CST Procedures Electronic Monitoring/Non-Stress Test Date: 09/07/2024 Time: 1780-6392 Suki Leon is a 29 y.o. female [...] Sara Eng MD at 09/08/2024 12:09 PM HOSPITALIST ITALIST ITALIST * Pauline Simms MD - 09/06/2024 8:38 PM CSTAssociated Order(s): NONSTRESS TEST Baby A FHR Baseline: 125 Variability: moderate Accelerations: absent Decelerations: absent in last part of tracing, was initially having small variable decels in monitoring Reactive: Yes Baby B FHR Baseline: 130 Variability: moderate Accelerations: present Decelerations: absent Reactive: Yes 29 y.o. at 32w1d a/f preeclampsia with SF On monitor 7101-8036 Contractions: absent I have reviewed NST and instructed RN to take off monitor Pauline Simms MD Cosigned by Anastasia Amaro MD at 09/07/2024 7:29 AM HOSPITALIST ITALIST ITALIST Associated attestation - Anastasia Amaro MD - 09/07/2024 7:29 AM HOSPITALIST Attending Attestation - nonstress test I have reviewed the NST of Suki Leon myself. I agree with the interpretation as documented in the resident???s note. Anastasia Amaro MD 09/07/2024 * Sara Eng MD - 09/05/2024 4:21 PM CST Procedures NONSTRESS TEST Suki Leon is a 29 y.o. here today at 32.0 weeks gestation in the setting of preeclampsia. Time Monitored: 1096-7467 FHR Baseline: A: 135 B:135 Variability: A: mod B: mod Accelerations: A: present B: present Decelerations: A: absent B: absent Contractions: Pt reports feeling no UC; rare UC noted by toco; abdomen soft to palpation Reactive: Yes MFM Fellow Attestation I have reviewed the tracing and agree with the interpretation as above. NST reactive and reassuring. Sara Eng MD ITALIST * Sara Eng MD - 09/05/2024 3:53 PM CST Procedures NONSTRESS TEST Suki Leon is a 29 y.o. here today at 32.0 weeks gestation in the setting of preeclampsia. Time Monitored: 9056-1542 FHR Baseline: A: 135 B:135 Variability: A: mod B: mod Accelerations: A: present B: present Decelerations: A: absent B: absent Contractions: Pt reports feeling no UC; rare UC noted by toco; abdomen soft to palpation Reactive: Yes I have reviewed the NST. Tash Mathew CNM ITALIST ITALIST * Joellen Julio MD - 09/04/2024 12:14 [...] and reassuring NSTs x2. Joellen Julio MD ITALIST ITALIST * Joellen Schilling MD - 09/03/2024 11:34 AM CST 29 y.o. at 31w5d Time on monitor: 8213-3417 Fetus A FHR Baseline: 120 Variability: moderate [...] Josefina Peter MD at 09/09/2024 1:38 AM HOSPITALIST ITALIST ITALIST ITALIST * Joellen Julio MD - 09/02/2024 10:59 [...] Reactive and reassuring x2. Joellen Julio MD ITALIST ITALIST * Joellen Schilling MD - 09/01/2024 4:00 [...] Jessica Naranjo MD at 09/02/2024 9:09 AM HOSPITALIST ITALIST ITALIST Associated attestation - Jessica Naranjo MD - 09/02/2024 9:09 AM HOSPITALIST Images from the original note were not included. MFM Attending Attestation I independently evaluated the twin NST for Suki Leon performed on 09/01/24 as documented by the fellow. I agree with the documentation. Reactive and reassuring NST for twins. Jessica Naranjo MD [employer] Division of Maternal- Medicine and Ultrasound Department of Obstetrics and Gynecology [facility] [employer] * Anastasia Plaza MD - 08/31/2024 1:32 PM CST Procedures 29 y.o. at 31w2d a/f preeclampsia with SF A FHR Baseline: 130 Variability: moderate Reactive: Yes B FHR Baseline: 135 Variability: moderate Reactive: Yes Contractions: absent Comments: 12:32-13:02 I have reviewed NST and instructed RN to take off monitor Anastasia Plaza MD Cosigned by Nini Cortez MD at 08/31/2024 3:10 PM HOSPITALIST ITALIST ITALIST Associated attestation - Niin Cortez MD - 08/31/2024 3:10 PM HOSPITALIST I have independently reviewed the NSTx2 and agree with the documentation. Nini Cortez MD 08/31/2024 * Maureen Calix MD - 08/30/2024 2:48 PM CST Procedures 29 y.o. at 31w1d a/f preeclampsia with SF. Also with Shay twins Time on monitor: 4067-9421 Fetus A FHR Baseline: 135 Variability: moderate [...] Nini Cortez MD at 08/30/2024 4:16 PM HOSPITALIST ITALIST ITALIST ITALIST Associated attestation - Nini Cortez MD - 08/30/2024 4:16 PM HOSPITALIST I have independently reviewed the NSTx2 and [...] SF and Shay twins Time on monitor: 9181-8189 Fetus A FHR Baseline: 130 Variability: moderate Reactive: Yes Decelerations: none Fetus B FHR Baseline: 135 Variability: moderate Reactive: Yes Decelerations: none Contractions: absent Comments: reactive and reassuring NST I have reviewed NST and instructed RN to take off monitor Nadiya Calix MD PhD Obstetrics & Gynecology - PGY 2 08/29/2024 Cosigned by Nini Cortez MD at 08/29/2024 9:00 PM HOSPITALIST ITALIST ITALIST Associated attestation - Nini Cortez MD - 08/29/2024 9:00 PM HOSPITALIST I have independently reviewed the NSTx2 and [...] Nini Cortez MD at 08/29/2024 10:17 AM HOSPITALIST ITALIST ITALIST Associated attestation - Nini Cortez MD - 08/29/2024 10:17 AM HOSPITALIST I have independently reviewed the NSTx2 and agree with the documentation. Nini Cortez MD 08/29/2024 * Natalie Botello MD - 08/27/2024 2:15 PM CST Procedures 29 y.o. at 30w5d who is admitted for PreEwSF. Time on monitor: 9859-0028 Fetus A FHR Baseline: 125>135 Variability: moderate [...] Kaela Mcallister MD at 08/28/2024 6:56 AM HOSPITALIST ITALIST ITALIST ITALIST * Millicent Duran NP - 08/26/2024 11:13 AM CST Procedures Electronic Monitoring/Non-Stress Test Date: 08/26/2024 Time: 3805-1817 Suki Leon is a 29 y.o. female [...] Byron Lakhani MD at 08/26/2024 1:02 PM HOSPITALIST ITALIST ITALIST * Millicent Duran NP - 08/25/2024 12:56 PM CST Procedures Electronic Monitoring/Non-Stress Test Date: 08/25/2024 Time: 8134-0785 Suki Leon is a 29 y.o. female [...] Byron Lakhani MD at 08/25/2024 1:43 PM HOSPITALIST ITALIST ITALIST * Millicent Duran NP - 08/24/2024 12:31 PM CST Procedures Electronic Monitoring/Non-Stress Test Date: 08/24/2024 Time: 0300-0015 Suki Leon is a 29 y.o. female [...] Byron Lakhani MD at 08/24/2024 2:17 PM HOSPITALIST ITALIST ITALIST * Millicent Duran NP - 08/23/2024 4:48 PM CST Procedures Electronic Monitoring/Non-Stress Test Date: 08/23/2024 Time: 0035-5971 Suki Leon is a 29 y.o. female [...] Byron Lakhani MD at 08/23/2024 6:03 PM HOSPITALIST ITALIST ITALIST * Christiano Mathew CNM - 08/22/2024 3:25 PM CST Procedures NONSTRESS TEST Suki Leon is a 29 y.o. here today at 30.0 weeks gestation in the setting of preeclampsia with severe features and MCDA . Time Monitored: 9768-6656 FHR Baseline: A: 130 B: 135 Variability: A: mod B: mod Accelerations: A: present B: present Decelerations: A: absent B: absent Contractions: none noted on toco Reactive: Yes I have reviewed the NST. Tash Mathew CNM Cosigned by Byron Lakhani MD at 08/22/2024 4:04 PM HOSPITALIST ITALIST ITALIST * Meena Khalil MD - 08/21/2024 11:40 AM CST 29 y.o. at 29w6d Time on monitor: 3511-8768 Fetus A FHR Baseline: 120 Variability: moderate Reactive: Yes Decelerations: none Fetus B FHR Baseline: 130 Variability: moderate Reactive: Yes Decelerations: none Contractions: absent Comments: Reactive NST with small areas of discontinuity, overall reassuring I have reviewed NST and instructed RN to take off monitor Meena Khalil MD PGY-2 Obstetrics & Gynecology Cosigned by Libby Berman MD at 08/21/2024 12:33 PM HOSPITALIST ITALIST ITALIST Associated attestation - Libby Berman MD - 08/21/2024 12:33 PM HOSPITALIST I have reviewed the NST and agree [...] negative workup thus far, 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 Nini Skinner MD MFM Fellow Attestation 3:29 PM 08/20/2024 I have reviewed and agree with the above documentation and interpretation of the tracing. Reactive and reassuring tracing x 2. Sue Meza MD, MPH Cosigned by Leticia Barillas MD at 08/24/2024 2:26 PM HOSPITALIST ITALIST ITALIST ITALIST * Anastasia Plaza MD - 08/19/2024 4:36 PM CST 29 y.o. at 29w4d a/f preeclampsia with SF Procedures FHR Baseline: 125 Variability: moderate Reactive: Yes FHR Baseline: 125 Variability: moderate Reactive: Yes Contractions: absent Comments: 16:16-16:36 I have reviewed NST and instructed RN to take off monitor Anastasia Plaza MD Cosigned by Leticia Barillas MD at 08/19/2024 5:07 PM HOSPITALIST ITALIST ITALIST Associated attestation - Leticia Barillas MD - 08/19/2024 5:07 PM HOSPITALIST I have reviewed the NST for Twin 1 and 2 and agree with the documentation provided by the resident. Leticia Barillas MD * Avery Veloz MD - 08/18/2024 5:23 PM CST Procedures 29 y.o. at 29w3d Time on monitor: 0192-0119 Fetus A FHR Baseline: 130 Variability: moderate [...] Leticia Barillas MD at 08/19/2024 5:08 PM HOSPITALIST ITALIST ITALIST ITALIST * Millicent Duran NP - 08/17/2024 4:18 PM CST Procedures Electronic Monitoring/Non-Stress Test Date: 08/17/2024 Time: 7852-7550 Suki Leon is a 29 y.o. female [...] Leticia Barillas MD at 08/17/2024 4:57 PM HOSPITALIST ITALIST ITALIST Associated attestation - Leticia Barillas MD - 08/17/2024 4:57 PM HOSPITALIST FHR Baseline: 130/130 Variability: moderate x 2 Accelerations: present x2 Decelerations: absent Contractions: absent Reactive: Yes x 2 I have reviewed the NST for Twin 1 and 2 and both reactive. Leticia Barillas MD * Millicent Duran NP - 08/16/2024 4:23 PM CST Procedures Electronic Monitoring/Non-Stress Test Date: 08/16/24 Time: 3584-7963 Suki Leon is a 29 y.o. female [...] Leticia Barillas MD at 08/17/2024 12:25 PM HOSPITALIST ITALIST ITALIST * Millicent Duran NP - 08/15/2024 2:41 PM CST Procedures Electronic Monitoring/Non-Stress Test Date: 08/15/2024 Time: 5553-7974 Suki Leon is a 29 y.o. female [...] Leticia Barillas MD at 08/17/2024 12:25 PM HOSPITALIST ITALIST ITALIST * Gisell Cunningham MD - 08/14/2024 12:08 PM CST Procedures NST Time: 1084-1032 Twin A FHR Baseline: 125 Variability: moderate Accels: Present x2 Decels: None Reactive: Yes Twin B FHR Baseline: 135 Variability: moderate Accels: Present Decels: None Reactive: Yes Contractions: absent Comments: Reactive and reassuring NST I have reviewed NST and instructed RN to take off monitor Gisell Cunningham MD [facility] Fellow Cosigned by Byron Lakhani MD at 08/15/2024 7:29 AM HOSPITALIST ITALIST ITALIST * Selena Brooke MD - 08/13/2024 2:36 PM CST 29 y.o. female at 28w5d gestation admitted for preEwSF, Shay NST Time: 20 minutes 5311-4387 Twin A FHR Baseline: 135 Variability: moderate Decelerations: absent Reactive: Yes, 10x10 bpm Contractions: absent Comments: reactive and reassuring Twin B FHR Baseline: 135 > 140 Variability: moderate Decelerations: absent Reactive: Yes, 10x10 bpm Contractions: absent Comments: reactive and reassuring I have reviewed NST and instructed RN to take off monitor Selena Brooke MD Cosigned by Nini Knapp MD at 08/13/2024 2:46 PM HOSPITALIST ITALIST ITALIST Associated attestation - Nini Knapp MD - 08/13/2024 2:46 PM HOSPITALIST I have reviewed the NST and agree with the documentation provided by the resident/ENVIRONMENTAL PLANNING ENGINEER. Nini Knapp MD * Millicent Duran NP - 08/12/2024 3:55 PM CST Procedures Electronic Monitoring/Non-Stress Test Date: 08/12/24 Time: 3617-1685 Suki Leon is a 29 y.o. female [...] Byron Lakhani MD at 08/12/2024 3:58 PM HOSPITALIST ITALIST ITALIST * Millicent Duran NP - 08/11/2024 2:43 PM CST Procedures Electronic Monitoring/Non-Stress Test Date: 08/11/24 Time: 5250-1291 Suki Leon is a 29 y.o. female [...] Byron Lakhani MD at 08/11/2024 2:53 PM HOSPITALIST ITALIST ITALIST * Millicent Duran NP - 08/10/2024 11:15 AM CST Procedures Electronic Monitoring/Non-Stress Test Date: 08/10/24 Time: 4340-2338 Suki Leon is a 29 y.o. female [...] Byron Lakhani MD at 08/10/2024 11:22 AM HOSPITALIST ITALIST ITALIST * Mariela Dyson MD - 08/09/2024 10:27 AM CST Procedures 29 y.o. at 28w1d Time on monitor: 8901-9904 Fetus A FHR Baseline: 125 Variability: moderate Reactive: Yes Decelerations: none Fetus B FHR Baseline: 135 Variability: moderate Reactive: Yes Decelerations: none Contractions: absent Comments: reactive and reassuring x2 I have reviewed NST and instructed RN to take off monitor Mariela Voss MD Cosigned by Byron Lakhani MD at 08/09/2024 4:39 PM HOSPITALIST ITALIST ITALIST Associated attestation - Byron Lakhani MD - 08/09/2024 4:39 PM HOSPITALIST I have reviewed and agree with NST [...] Byron Lakhani MD at 08/08/2024 10:35 AM HOSPITALIST ITALIST ITALIST Associated attestation - Byron Lakhani MD - 08/08/2024 10:35 AM HOSPITALIST I have reviewed and agree with NST [...] Byron Lakhani MD at 08/08/2024 6:54 AM HOSPITALIST ITALIST ITALIST ITALIST * Sue Rodriguez MD - 08/06/2024 1:39 PM CDT Procedures 29 y.o. at 27w5d a/f PreBeck Newi. Indication: routine daily NST Time: 1002 - [...] included. Procedures Date: 08/05/2024 Time on monitor: 6570-1968 Twin A: Baseline: 120 bpm Variability: Moderate Accelerations: Present Decelerations: Absent Twin B: Baseline: 140 bpm Variability: Moderate Accelerations: Present Decelerations: Absent Contractions: Absent Interpretation: Reactive and reassuring NST x 2 for twin . Jessica Naranjo MD [employer] Division of Maternal- Medicine and Ultrasound Department of Obstetrics and Gynecology [facility] 08/05/2024 * Christiano Mathew CNM - 08/05/2024 3:28 PM CDT Procedures NONSTRESS TEST Suki Leon is a 29 y.o. here today at 27.4 weeks gestation in the setting of preeclampsia. Time: 9146-5078 FHR Baseline: A: 125 B: 145 Variability: [...] documentation for my interpretation. Jessica Naranjo MD [employer] Division of Maternal- Medicine and Ultrasound Department of Obstetrics and Gynecology [facility] 08/05/2024 * Jessica Naranjo MD - 08/04/2024 4:38 PM CDT Images from the original note were not included. Procedures Date: 08/04/2024 Time on monitor: 5168-1265 Twin 1: Baseline: 135 bpm Variability: Moderate Accelerations: Present Decelerations: Absent Twin 2: Baseline: 140 bpm Variability: Moderate Accelerations: Present Decelerations: Absent Contractions: None Interpretation: Reactive and reassuring NST for both twins. Patient is appropriate to take off the monitor at this time. This note is delayed due to patient care. Jessica Naranjo MD [employer] Division of Maternal- Medicine and Ultrasound Department of Obstetrics and Gynecology [facility] 08/04/2024 * Millicent Duran NP - 08/04/2024 12:26 PM CDT Procedures Electronic Monitoring/Non-Stress Test Date: 08/04/24 Time: 2359-9213 Suki Leon is a 29 y.o. female [...] NST for both twins. Jessica Naranjo MD [employer] Division of Maternal- Medicine and Ultrasound Department of Obstetrics and Gynecology [facility] 08/04/2024 * Joellen Julio MD - 08/03/2024 5:21 PM CDT Procedures 29 y.o. at 27w2d Time on monitor: 0035-3879 Fetus A FHR Baseline: 130 Variability: moderate [...] NST for both twins. Jessica Naranjo MD [employer] Division of Maternal- Medicine and Ultrasound Department of Obstetrics and Gynecology [facility] * Jessica Naranjo MD - 08/02/2024 12:31 PM CDT Images from the original note were not included. Procedures Date: 08/02/2024 Time on monitor: 4838-4968 Twin A Baseline: 130 bpm Variability: Moderate Accelerations: Present Decelerations: Absent Twin B Baseline: 135 bpm Variability: Moderate Accelerations: Present Decelerations: Absent Contractions: Absent Interpretation: Reactive and reassuring NST of both twins. Jessica Naranjo MD [employer] Division of Maternal- Medicine and Ultrasound Department of Obstetrics and Gynecology [facility] 08/04/2024 * Millicent Duran NP - 08/02/2024 10:23 AM CDT Procedures Electronic Monitoring/Non-Stress Test Date: 08/02/24 Time: 1092-6664 Suki Leon is a 29 y.o. female [...] NST for both twins. Jessica Naranjo MD [employer] Division of Maternal- Medicine and Ultrasound Department of Obstetrics and Gynecology [facility] 08/02/2024 * Millicent Duran NP - 08/01/2024 12:04 PM CDT Procedures Electronic Monitoring/Non-Stress Test Date: 08/01/24 Time: 9086-8859 Suki Leon is a 29 y.o. female [...] for twin pregnancyat 27w0d. Jessica Naranjo MD [employer] Division of Maternal- Medicine and Ultrasound Department of Obstetrics and Gynecology [facility] 08/01/2024 * Sue Meza MD - 07/31/2024 12:41 PM CDT Procedures NST Progress Note 29 y.o. at 26w6d admitted for PreEwSF Time on monitor: 9466-0421 Twin A: FHR Baseline: 130 bpm Variability: moderate Accelerations: present Decelerations: none Twin B: FHR Baseline: 135 bpm Variability: moderate Accelerations: present Decelerations: none Contractions: absent Reactive: Yes Comments: Twin B with discontinuity but overall reassuring. Rare age-appropriate variables. Reactive and reassuring for both twins. Instructed RN that patient can be taken off the monitor. Rey Quinonez MD MFM Fellow Attestation 07/31/2024 1:26 PM [...] Reactive and reassuring NST. Jessica Naranjo MD [employer] Division of Maternal- Medicine and Ultrasound Department of Obstetrics and Gynecology [facility] 08/01/2024 * Francisca Yun MD - 07/30/2024 1:52 PM CDT 29 y.o. at 26w5d Time on monitor: 2212-6019 Fetus A FHR Baseline: 135 Variability: moderate [...] x 1 hr prior to discontinuing monitoring. Truong Yun MD PGY7 Cosigned by Nini Knapp MD at 07/31/2024 8:10 AM CDT Associated attestation - Nini Knapp MD - 07/31/2024 8:10 AM CDT I have reviewed the NST and agree with the documentation provided by the resident/ENVIRONMENTAL PLANNING ENGINEER. Nini Knapp MD * Mariela Dyson MD - 07/29/2024 11:44 AM CDT Procedures 29 y.o. at 26w4d Time on monitor: 9066-2432, prolonged monitoring Fetus A FHR Baseline: within [...] with the documentation provided. Tash Yeh MD [employer] Division of Maternal- Medicine documented in this [...] appropriate questions. She has not chosen a fur dry cleaner hand. Consultation Details/Neonatology Counseling: Suki Leon is a [...] 05/20/2024 LABRPR Nonreactive 07/29/2024 RUBELIGG Reactive 05/20/2024 [id number] Nonreactive 07/29/2024 Other: VZV equiv We discussed [...] acuity or blindness. The pediatric ophthalmologists are [facility] will monitor the boys at regular [...] if it is causing difficulty to the . Feeding: We discussed the normal developmental feeding [...] Carrol Acosta MD at 08/10/2024 1:16 PM HOSPITALIST ITALIST ITALIST Associated attestation - Carrol Acosta MD - 08/10/2024 1:16 PM HOSPITALIST OB INPATIENT Consult Attestation: I have reviewed [...] Carrol Acosta MD 08/10/2024 1:16 PM Attending Lift Supervisor * Macie Vickers MD - 08/03/2024 10:33 AM CDTAssociated Order(s): IP CONSULT TO PEDIATRIC CARDIOLOGY CARDIOLOGY CONSULTATION RE: Suki Leon : 1995 I had the pleasure of seeing Ms. Suki Leon in initial cardiac consultation at [facility]. Suki is a 29 y.o. female referred today for echocardiogram due to concern for possible aortic dilation. This is a mono-di . OSH ultrasound reported aortic dilation on fetus 1 designated on maternal left per US report. JERONIMO is 10/31/24, making the gestational age approximately 27+2 weeks at the time of this evaluation.She will be delivering at [facility]. She reports she is carrying a male fetuses. She is currently admitted at [facility] for pre-E with severe features. There is lateral ventriculomegaly noted in twin B. No other anomalies have been noted. Genetic testing: NIPT - LR Referring OB/MFM: Marlen Wihte MD Past Medical History: Diagnosis Date Anxiety [...] Maureen Calix MD, 90 mg at 08/03/24 08 PNV with [id number] tablet 1 tablet, 1 tablet/capsule, oral, Daily, [...] Conv) Cancer Neg Hx no colon or ob/gyn physician cmt 04/15/24 There is no known congenital heart disease, defects, or genetic syndromes. Social History Suki is to Florentino Leon, 31. She lives in [place], [place]. 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 She denies tobacco, alcohol, or illicit drug use. Vitals: 08/02/24 2006 08/02/24 2359 08/03/24 0434 08/03/24 0855 BP: 142/92 [...] opportunity of consultation. Please contact me at [phone] with questions or concerns regarding these findings [...] replied YES. Pt stated understanding of education. ITALIST * Heather Abel RN - 08/12/2024 9:09 [...] medications. Patient insisted on swallowing the tablet. ITALIST documented in this encounter Miscellaneous Notes * [...] Alternate activity with rest; Prepare for discharge Shampooer Patient Centered Goal for Treatment: Safe dc home Summary: Pt adequate for discharge. ITALIST * Plan of Care - Soumya Teixeira RN - 09/22/2024 5:26 AM HOSPITALIST Problem: General Patient Education Goal: Knowledge of [...] VS WNL, adequate pain control, adequate rest [facility] Patient Centered Goal for Treatment: Safe dc home Summary: Patient is adequately progressing towards care plan goals. ITALIST * Note - Nini Borges RN - [...] provided human milk before?: No class: No Infant to breast within first hour of ?: No Delayed Due to: Infant status Exclusive Pump and Bottle Feed: No [...] an electric pump, Demonstrated how to use [place] breast pump when collecting colostrum, Demonstrated settings for [place] pump ( Lactognesis II), Mother return demonstration [...] for concerns when here visiting the [facility] Location: [place] Provider[place] Loaner Pump Number: aware Personal Pump: hands free Comments: Attempted BF, infant too sleepy. Nuzzled at breast. Discussed breast engorgement prevention and management. Discussed plugged ducts, signs and symptoms. Reviewed when to expect mother's full milk supply, and regulation of supply. Within3 carli, as well as meal program reviewed. Discussed pumps offered through mother's insurance. Mother aware loaner pump available until her pump arrives. Support and encouragement offered. Nini Borges RN 09/21/2024 3:46 PM ITALIST * Plan of Care - Nancy Crooks [...] Pain control; VSS; Alternate activity with rest [facility] Patient Centered Goal for Treatment: Safe dc home Summary: Pt progressing toward plan of care goals. ITALIST * Plan of Care - Soumya Teixeira RN - 09/21/2024 2:54 AM HOSPITALIST Problem: General Patient Education Goal: Knowledge of disease process, condition or treatment will be improved 09/21/2024252 by Soumya Teixeira RN Outcome: Progressing 09/21/2024252 by Soumya Teixeira RN Outcome: Progressing Problem: Medication Regimen Goal: Knowledge of medication regimen will improve 09/21/2024252 by Soumya Teixeira RN Outcome: Progressing 09/21/2024252 by Soumya Teixeira RN Outcome: Progressing Problem: Additional OB Conditions Goal: Will remain free from complications related to obstetric conditions 09/21/2024 025 by Soumya Teixeira RN Outcome: Progressing 09/21/2024 025 by Soumya Teixeira RN Outcome: Progressing Goal: Mother's verbalization of understanding around OB conditions and complications will improve 09/21/2024 025 by Soumya Teixeira RN Outcome: Progressing 09/21/2024 025 by Soumya Teixeira RN Outcome: Progressing Problem: Lack of Knowledge Goal: Ability to develop a pain control plan will improve 09/21/2024 025 by Soumya Teixeira [...] Soumya Teixeira RN Outcome: Progressing 09/21/2024252 by Soumay Teixeira RN Outcome: Progressing Goal: Understanding of [...] regimen, continue to pump8-12x per day ' [facility] Patient [facility] Goal for Treatment: Safe dc home Summary: Patient is adequately progressing towards care plan goals. ITALIST * Note - Sultana Schwarz RN - 09/20/2024 8:40 AM CST Discussed importance of pumping 8-12 times daily for infants in NICU. Discussed importance of breasts massage, pumping then hand expression. Discussed pump, pump settings, how to clean all pumping parts, use jail keeper bag daily, and how to collect and store ebm and take to NICU. Mother states has a hands free pump to use after discharge; discussed to ask NICU for an electric breast pump upon discharge. Discussed care during engorgement and aware of all discharge resources. Mother shown hand expression with no drops of colostrum noted. Emotional support given. ITALIST * Plan of Care - Arianne Lee RN - 09/20/2024 8:10 AM CST Problem: General Patient Education Goal: Knowledge of disease process, condition or treatment will be improved Outcome: Progressing Problem: Medication Regimen Goal: Knowledge of medication regimen will improve Outcome: Progressing Flowsheets (Taken 09/20/2024 0809) Knowledge of medication regimen will improve: Provide realistic goals for learning Assess comprehension of information provided about medications Assess physical and emotional readiness to learn Problem: Additional OB Conditions Goal: Will remain free from complications related to obstetric conditions Outcome: Progressing Flowsheets (Taken 09/20/2024 0809) Will remain free of complications related to obstetric conditions: Evaluate deep tendon reflexes Assess visual and neuro statuses Monitor heart rate Monitor movement Assess vaginal bleeding or drainage Goal: Mother's verbalization of understanding around OB conditions and complications will improve Outcome: Progressing Problem: Lack of Knowledge Goal: Ability to develop a pain control plan will improve Outcome: Progressing Flowsheets (Taken 09/20/2024 0809) Ability to develop a pain control plan will improve: Explain causes of pain and how long pain can be expected to last Teach information regarding pain management Educate pain scale for assessing level of pain Problem: Coping Goal: Ability to cope will improve Outcome: Progressing Flowsheets (Taken 09/20/2024 0809) Ability to cope will Improve: Encourage vebalization of feelings surrounding pain Provide emotional support Perform depression screening Assess beliefs of pain Problem: Skin Integrity Impairment Risk Goal: Mobility will improve Outcome: Progressing Flowsheets (Taken 09/20/2024 0809) Mobility will improve: Encourage mobilization to extent [...] the Shift: VSS, pain controlled, BP controlled [facility] Goal for Treatment: safe dsicharge to home Summary: VSS, pain controlled, BP Controlled. ITALIST * Plan of Care - Blessing Dean [...] for the Shift: VSS; pain management; rest [facility] Goal for Treatment: Safe discharge home Summary: Pt is progressing towards goals. ITALIST * Plan of Care - Ashley Michaud RN - 09/19/2024 7:41 PM HOSPITALIST Goals: Clinical Goals for the Shift: Rest, VSS [facility] Goal for Treatment: healthy mom and babies Summary: Patient resting comfortably ITALIST * Op Note - Rey Quinonez MD - 09/19/2024 1:30 PM CST [facility] Section Delivery Note Patient's Name: Suki Loen : 1995 Attending Physician: Josefina Peter MD Surgical Team: Surgeons and Role: * Josefina Peter MD - Primary * Anastasia Plaza MD - Resident - Assisting * Rey Quinonez MD - Resident - Assisting * Joellen Schilling MD - Fellow Clinic: [facility] Primary Diagnoses: Preeclampsia with severe features Monochorionic diamniotic twins Severe growth restriction of Twin A Aortic dilation of Twin B Lateral ventriculomegaly of Twin B Depression/anxiety Obesity Delivery method: Tiffany Leon [[id number]] [351] Nancy Leon [[id number]] [351] Anesthesia: Tiffany Leon [[id number]] Combined Spinal/Epidural [300] Nancy Leon [[id number]] Combined Spinal/Epidural [300] Membranes: Tiffany Leon [[id number]] Artificial Nancy Leon [[id number]] Artificial rupture, clear. Time ruptured prior to delivery: rupture date, rupture time, delivery date, or delivery time have not been documented Antibiotics: Ancef Infant Delivery Date/Time: 09/19/2024 at 2:59 PM Placenta Delivery Date & Time: Tiffany Leon [[id number]] 09/19/2024 3:02 PM Nancy Leon [[id number]] 09/19/2024 3:02 PM Cord: Tiffany Leon [[id number]] 3 vessels [3] Nancy Leon [[id number]] 3 vessels [3] Delayed cord clamping: Yes, 60 seconds. For Twin B : living5 lb 9.2 oz (2.53 kg)male MRN: Tiffany Leon [[id number]] [id number] Nancy Leon [[id number]] APGARs: Tiffany Leon [[id number]] 9 Nancy Leon [[id number]] 8 / Tiffany Leon [[id number]] 9 Nancy Leon [] 9 Disposition: NICU Operative Note Preoperative Diagnosis: Intrauterine at 34w0d Monochorionic diamniotic twin with 33% discordance Postoperative Diagnosis: Same Name of Operation: Primary Low Transverse Section via Pfannensteil Indication for Procedure: Suki Leon is a 29 y.o. female at 34w0d weeks gestation, dated by 1st trimester ultrasound who presented to L&D for primary section. Operative Findings: in vertex presentation. APGARS were Tiffany Leon [[id number]] 9 Nancy Leon [] 8 / Edward, Tiffany [[id number]] 9 Edward, Nancy [[id number]] 9 at 1 and 5 minutes respectively. [...] cord was clamped and cut and the was handed off to the waiting pediatricians. [...] Josefina Peter MD at 09/21/2024 10:12 PM HOSPITALIST ITALIST ITALIST Associated attestation - Josefina Peter MD - 09/21/2024 10:12 PM HOSPITALIST I was present for the entire procedure; [...] Ann MD Anesthesia Fellow: Liliam Rodriguez MD Fur Stylist: Apolinar Schmitt MD; Abena Denton MD Can Sealer: Carlos Shukla RN; Venus Jesus RN Scrub: Cayla Park RN L+D Nurse: Abena Cohn RN Patient Brim Flexer: Jonatan Kelly ST DATE OF SURGERY : [...] Josefina Peter MD at 10/05/2024 8:45 PM HOSPITALIST ITALIST ITALIST Associated attestation - Josefina Peter MD - 10/05/2024 8:45 PM HOSPITALIST I was present for the entire procedure. Uncomplicated primary LTCS for MC/DA twins with discordantgrowth and preeclampsia with severe features. Josefina Peter [...] for the Shift: VSS, monitor bp, rest [facility] Goal for Treatment: healthy mom and babies Summary: Milla Cazares RN ITALIST * Plan of Care - Tevin Bateman RN - 09/18/2024 8:30 AM CST Goals: Clinical Goals for the Shift: VSS, reactive nst, pain control, rest [facility] Goal for Treatment: healthy mom [...] management medication regimen will improve Outcome: Progressing ITALIST * Plan of Care - Arabella Esparza [...] Shift: vs wnl, AM labs , rest Sh[facility] Patient Centered Goal for Treatment: healthy mom healthy babies Summary: Arabella Esparza RN ITALIST * Plan of Alejo Delgado RN - 09/17/2024 10:47 AM HOSPITALIST Problem: General Patient Education Goal: Knowledge of [...] Shift: VSS, reactive nst, pain control, rest [facility] Goal for Treatment: healthy mom healthy babies Summary: Alejo Rose RN ITALIST * Plan of Care - Arabella Esparza [...] Goals for the Shift: vs wnl, rest Shampooer Patient Centered Goal for Treatment: healthy mom healthy babies Summary: Arabella Esparza RN ITALIST * Plan of Care - Alejo Rose RN - 09/16/2024 10:01 AM HOSPITALIST Problem: General Patient Education Goal: Knowledge of [...] worsening s/s of PreE, pain control, rest Shampooer Patient Centered Goal for Treatment: healthy mom healthy babies Summary: Alejo Rose RN ITALIST * Plan of Care - Tash Borden [...] Shift: VSS, adequate pain control < 4 Shamp[facility]er Patient Centered Goal for Treatment: healthy mom healthy babies Summary: ITALIST * Plan of Care - Livia Meléndez [...] NST, learn about next steps in care [facility] Goal for Treatment: healthy mom healthy babies Livia Meléndez RN ITALIST * Plan of Care - Maureen Keith RN - 09/14/2024 11:08 AM HOSPITALIST Problem: General Patient Education Goal: Knowledge of [...] for s/s of worsening preE, reactive NST Shamp[facility]er Patient Centered Goal for Treatment: healthy mom healthy babies Summary: Maureen Keith RN ITALIST * Plan of Care - Polly Umana RN - 09/13/2024 9:50 PM CST [...] worsening s/s of preE, pain control, rest Shampooer Patient Centered Goal for Treatment: healthy mom healthy babies ITALIST * Plan of Care - Blessing Barone [...] s/s of PreE; Reactive NST; promote rest Shampooer Patient Centered Goal for Treatment: healthy mom and healthy baby Blessing Barone RN ITALIST * Plan of Rohit - Polly Umana RN - 09/12/2024 10:26 [...] worsening s/s of preE, pain control, rest [facility] Goal for Treatment: healthy mom healthy baby ITALIST * Plan of Rohit - Blessing Barone RN - 09/12/2024 10:10 [...] monitor for s/s of PreE; promote rest Shampooer Patient Centered Goal for Treatment: healthy mom and healthy babies Blessing Barone RN ITALIST * Plan of Care - Polly Umana [...] worsening s/s of preE, pain control, rest [facility] Goal for Treatment: healthy mom healthy baby ITALIST * Plan of Care - Dave Juarez [...] Shift: vss, BP monitoring, reactive NSTx2, rest [facility] Patient [facility] Goal for Treatment: healthy mom and healthy babies Summary: ITALIST * Plan of Care - Jessica Morel [...] Goals: Clinical Goals for the Shift: VSS [facility] Goal for Treatment: healthy mom and healthy babies ITALIST * Plan of Care - Dave Juarez [...] Shift: vss, reactive NSTx2, BP control, rest Shampooer Patient Centered Goal for Treatment: healthy mom and healthy babies Summary: ITALIST * Plan of Care - Selena Last [...] s/s of complications related to pre-E, rest [facility] Patient [facility] Goal for Treatment: healthy mom and healthy babies Summary: Patient resting in bed. Patient had no complaints of pain, headache, cramping or ctx. Patient VSS. ITALIST * Plan of Care - Cha Kelly [...] x2, encourage ambulation and positive coping mechanisms. [facility] Patient [facility] Goal for Treatment: healthy mom and healthy babies Summary:Will continue to monitor patient progress towards clinical goals. ITALIST * Plan of Care - Arabella Esparza [...] vs wnl, am lab draw, controlled BP [facility] Goal for Treatment: healthy mom and healthy babies Summary: Arabella Esparza RN ITALIST * Plan of Rohit - Blessing Barone RN - 09/08/2024 7:53 [...] WNL; pain control; Reactive NST; promote rest [facility] Patient [facility] Goal for Treatment: healthy mom and healthy babies Blessing Barone RN ITALIST * Plan of Torrie Sawant RN - 09/07/2024 11:26 PM CST Goals: Clinical Goals for the Shift: vss, pain control, monitor symptoms of pre-E, rest Shampooer Patient Centered Goal for Treatment: healthy mom [...] improve Outcome: Progressing Summary: Torrie Cline RN ITALIST * Plan of Care - Alejo Rose RN - 09/07/2024 9:11 AM HOSPITALIST Problem: Discharge Planning Goal: Understanding discharge needs [...] s/s of pre E, pain control, rest [facility] Patient [facility] Goal for Treatment: healthy mom and baby Summary: Alejo Rose RN ITALIST * Plan of Care - Jenn Mcallister [...] NST; BP monitoring; medication administration; pain management [facility] Goal for Treatment: healthy mom and baby ITALIST * Plan of Care - Maria Luisa Sawyer RN - 09/06/2024 11:46 AM HOSPITALIST Problem: Discharge Planning Goal: Understanding discharge needs [...] for the Shift: VSS; labs; BP monitoring Shampooer Patient Centered Goal for Treatment: healthy mom and baby Summary: ITALIST * Plan of Care - Jenn Mcallister [...] for the Shift: VSS; labs; BP monitoring [facility] Goal for Treatment: healthy mom and baby ITALIST * Plan of Care - Alejo Rose RN - 09/05/2024 10:54 AM HOSPITALIST Problem: Discharge Planning Goal: Understanding discharge needs [...] regimen will improve Outcome: Progressing Flowsheets (Taken 08/30/2024 2143 by Yoselin Moore, KRYSTEN) Knowledge of medication [...] will improve Outcome: Progressing Flowsheets (Taken 09/05/2024 105) Mothers verbalization of understanding around OB conditions and complications will improve: Teach counting of movement Problem: Lack of Knowledge Goal: Ability to develop a pain control plan will improve Outcome: Progressing Flowsheets (Taken 09/05/2024 105) Ability to develop a pain control plan will improve: Educate pain scale for assessing level of pain Problem: Medication Goal: Satisfaction with pain management medication regimen will improve Outcome: Progressing Flowsheets (Taken 09/01/2024 1118 by Nicole Mercado RN) Satisfaction with pain management medication regimen will improve: Assess satisfaction with pain management regimen Problem: Sensory Goal: Ability to identify factors that increase pain levels will improve while working to decrease the patient's pain levels Outcome: Progressing Flowsheets (Taken 09/05/2024 105) Ability to identify factors that increase pain levels will improve while working to decrease patients pain levels: Assess pain status Provide hot or cold therapy Assess effects of pain control measures Problem: Coping Goal: Ability to cope will improve Outcome: Progressing Flowsheets (Taken 09/01/2024 1118 by Nicole Mercado, KRYSTEN) Ability to cope will Improve: Encourage vebalization of feelings surrounding pain Provide emotional support Problem: Health Behavior Goal: Identification of resources available to assist in meeting health care needs will improve Outcome: Progressing Flowsheets (Taken 08/30/20242142 by Yoselin Moore RN) Identification of resources available to assist in meeting health care needs will improve: Collaborate with pain management Collaborate with all therapies Goals: Clinical Goals for the Shift: VSS, reactive nst, no worsening s/s of preE, rest [facility] Goal for Treatment: healthy mom and baby Summary: Alejo Rose RN ITALIST * Plan of Care - Arabella Esparza [...] Goals for the Shift: vs wnl, rest [facility] Patient [facility] Goal for Treatment: D/C home safely after delivery Summary: Arabella Esparza RN ITALIST * Plan of Care - Livia Meléndez [...] NST, learn about next steps in care [facility] Goal for Treatment: D/C home safely after delivery Livia Meléndez RN ITALIST * Plan of Care - Arabella Esparza [...] Goals for the Shift: vs wnl, rest Shampooer Patient Centered Goal for Treatment: D/C home safely after delivery Summary: Arabella Esparza RN ITALIST * Plan of Care - Livia Meléndez [...] NST, learn about next steps in care [facility] Patient [facility] Goal for Treatment: D/C home safely after delivery Livia Meléndez RN ITALIST * Plan of Care - Denisa Bonilla [...] Clinical Goals for the Shift: VSS, rest [facility] Patient [facility] Goal for Treatment: D/C home safely after delivery Summary: Continue antepartum care. ITALIST * Plan of Rohit - Livia Meléndez RN - 09/02/2024 9:33 [...] VSS, BP management, reactive NST, ambulation, shower [facility] Goal for Treatment: healthy mom healthy babies Livia Meléndez RN ITALIST * Plan of Care - Polly Umana [...] worsening s/s of preE, pain control, rest [facility] Patient [facility] Goal for Treatment: healthy mom healthy babies ITALIST * Plan of Care - Nicole Mercado [...] will improve Outcome: Progressing Flowsheets (Taken 09/01/2024 1118) Mothers verbalization of understanding around OB conditions and complications will improve: Discusssigns or symptoms to report to provider Problem: Medication Goal: Satisfaction with pain management medication regimen will improve Outcome: Progressing Flowsheets (Taken 09/01/2024 1118) Satisfaction with pain management medication regimen will improve: Assess satisfaction with pain management regimen Problem: Coping Goal: Ability to cope will improve Outcome: Progressing Flowsheets (Taken 09/01/2024 1118) Ability to cope will Improve: Encourage vebalization of feelings surrounding pain Provide emotional support Goals: Clinical Goals for the Shift: Monitor VVS, NST, rest Shampooer Patient Centered Goal for Treatment: positive outcomes for patient and babies ITALIST * Plan of Care - Polly Umana [...] for the Shift: VSS, pain control, rest Shampooer Patient Centered Goal for Treatment: healthy mom healthy baby ITALIST * Plan of Care - Dave Juarez [...] Shift: vss, reactive NSTx2, monitor BP, rest Shampooer Patient Centered Goal for Treatment: healthy mom and babies Summary: ITALIST * Plan of Care - Yoselin Moore RN - 08/30/2024 9:43 PM HOSPITALIST Problem: General Patient Education Goal: Knowledge of [...] needs will improve Outcome: Progressing Flowsheets (Taken 08/30/2024 2143) Identification of resources available to assist in meeting health care needs will improve: Collaborate with pain management Collaborate with all therapies Goals: Clinical Goals for the Shift: vs wnl, bowel yanci, rest, monitor for s/s of severe PreE. Shampooer Patient Centered Goal for Treatment: healthy mom and babies ITALIST * Plan of Care - Cha Kelly [...] x2, encourage ambulation, promote positive coping skills. Shampooer Patient Centered Goal for Treatment: healthy mom and babies Summary: Will continue to monitor patient progress towards clinical goals. ITALIST * Plan of Care - Milla Cazares [...] for the Shift: VSS, monitor BP, rest Shampooer Patient Centered Goal for Treatment: healthy mom and babies Summary: Milla Cazares RN ITALIST * Plan of Care - Jessica Morel [...] the Shift: VSS, monitor s/sx of preE Shampooer Patient Centered Goal for Treatment: healthy mom and healthy babies ITALIST * Plan of Care - Dave Juarez [...] for the Shift: vss, BP monitoring, rest [facility] Patient [facility] Goal for Treatment: healthy mom and healthy babies Summary: ITALIST * Plan of Care - Blessing Barone [...] s/s of PreE; Reactive NST; promote rest [facility] Patient [facility]ered Goal for Treatment: healthy mom and healthy babies Blessing Barone RN ITALIST * Plan of Care - Jessica Morel [...] VSS, pain control, monitor s/sx of PreE [facility] Patient [facility] Goal for Treatment: healthy mom and baby ITALIST * Plan of Care - Michelle Lorenzo [...] Michelle Lorenzo, RN Outcome: Progressing 08/26/2024915 by MauraMichelle sanchez RN Outcome: Progressing Problem: Sensory Goal: Ability to identify factors that increase pain levels will improve while working to decrease the patient's pain levels 08/26/2024915 by Michelle Lorenzo RN Outcome: Progressing 08/26/2024915 by Michelle Lorenzo RN Outcome: Progressing Problem: Coping Goal: Ability to cope will improve 08/26/2024915 by Michelle Lorenzo RN Outcome: Progressing 08/26/2024915 by Michelle Lorenzo RN Outcome: Progressing Problem: Health Behavior Goal: Identification of resources available to assist in meeting health care needs will improve 08/26/2024915 by Michelle Lorenzo RN Outcome: Progressing 08/26/2024915 by Michelle Lorenzo RN Outcome: Progressing Clinical Goals for the Shift: stable VS, reactive NST, no worsening s/s of pre E, pain control Shampooer Patient Centered Goal for Treatment: healthy mom and baby Summary: ITALIST * Plan of Care - Jessica Morel [...] Goals for the Shift: VSS, BP monitoring Shampooer Patient Centered Goal for Treatment: healthy mom and baby ITALIST * Plan of Care - Dave Juarez RN - 08/25/2024 9:44 AM CST [...] reactive NSTx2, pain control, BP monitoring, rest [facility] Patient Centered Goal for Treatment: healthy mom and baby Summary: ITALIST * Plan of Care - Arabella Esparza [...] the Shift: vs wnl, rest, morning labs Shampooer Patient Centered Goal for Treatment: healthy mom and baby Summary: Arabella Esparza RN ITALIST * Plan of Care - Dave Juarez [...] Shift: vss, reactive NSTx2, BP monitor, rest Shampooer Patient Centered Goal for Treatment: healthy mom and baby Summary: ITALIST * Plan of Care - Floyd Ahumada [...] stable VS; reactive NST; monitro blood pressure Shampooer Patient Centered Goal for Treatment: healthy mom and baby Summary: Floyd Ahumada RN ITALIST * Plan of Care - Polly Umnaa RN - 08/22/2024 9:39 PM CST Problem: [...] monitor for worsening s/s of PreE, rest Shampooer Patient Centered Goal for Treatment: healthy mom healthy babies ITALIST * Plan of Care - Floyd Ahumada [...] for the Shift: Stable VS; reactive NST Shampooer Patient Centered Goal for Treatment: healthy mom and baby Summary: Floyd Ahumada RN ITALIST * Plan of Rohit - Torrie Cline RN - 08/21/2024 9:34 PM CST Goals: Clinical Goals for the Shift: vss, monitor s/s of pre-E, rest Shampooer Patient Centered Goal for Treatment: healthy mom [...] improve Outcome: Progressing Summary: Torrie Cline RN ITALIST * Plan of Care - Michelle Lorenzo [...] Shift: stable VS, reactive NST, pain control [facility] Patient [facility] Goal for Treatment: healthy mom and babies Summary: ITALIST * Plan of Care - Milla Cazares [...] for the Shift: VSS, monitor BP, rest [facility] Patient Centered Goal for Treatment: healthy mom and babies Summary: Milla Cazares RN ITALIST * Plan of Care - Michelle Lorenzo [...] Shift: stable VS, reactive NST, pain control Shampooer Patient Centered Goal for Treatment: healthy mom and babies Summary: ITALIST * Plan of Care - Milla Cazares [...] for the Shift: VSS, monitor BP, rest [facility] Patient Centered Goal for Treatment: healthy mom and babies Summary: Milla Cazares RN ITALIST * Plan of Care - Mima Whatley [...] the Shift: VSS, rest, monitor pre-E s/s [facility] Patient Centered Goal for Treatment: healthy mom, healthy babies Summary: ITALIST * Plan of Care - Kim Eugene RN - 08/18/2024 9:36 PM CST Goals: Clinical Goals for the Shift: monitor vss and promote rest [facility] Patient [facility]ered Goal for Treatment: healthy mom [...] health care needs will improve Outcome: Progressing ITALIST * Plan of Care - Maria Luisa Sawyer RN - 08/18/2024 10:32 AM HOSPITALIST Problem: Discharge Planning Goal: Understanding discharge needs [...] Shift: VSS, monitor s/s of preE, rest [facility] Patient Centered Goal for Treatment: healthy mom and babies Summary: ITALIST * Plan of Rohit - Libby Hicks RN - 08/17/2024 10:12 PM CST Problem: [...] Shift: VSS, monitor s/s of preE, rest [facility] Patient Centered Goal for Treatment: healthy mom and babies Summary: Libby Hicks RN ITALIST * Plan of Care - Maureen Keith RN - 08/17/2024 9:55 AM HOSPITALIST Problem: Discharge Planning Goal: Understanding discharge needs [...] the Shift: VSS, headache relief, reactive NST Shampooer Patient Centered Goal for Treatment: healthy mom and babies Summary: Maureen Keith RN ITALIST * Plan of Care - Torrie Cline RN - 08/16/2024 10:26 PM CST Goals: Clinical Goals for the Shift: vss, pain relied, monitor for s.s of pre-E, rest [facility] Patient Centered Goal for Treatment: healthy mom [...] improve Outcome: Progressing Summary: Torrie Cline RN ITALIST * Plan of Care - Maureen Keith RN - 08/16/2024 8:46 AM HOSPITALIST Problem: Discharge Planning Goal: Understanding discharge needs [...] VSS, monitor s/s of preE, reactive NST Shampooer Patient Centered Goal for Treatment: healthy mom and babies Summary: Maureen Keith RN ITALIST * Plan of Torrie Sawant RN - 08/15/2024 9:28 PM CST Goals: Clinical Goals for the Shift: vss, monitor for s/s of pre-E, rest [facility] Patient Centered Goal for Treatment: healthy mom [...] improve Outcome: Progressing Summary: Torrie Cline RN ITALIST * Plan of Blessing Dominguez RN - 08/15/2024 10:15 AM CST Problem: [...] s/s of PreE; Reactive NST; promote rest Shampooer Patient Centered Goal for Treatment: healthy mom and healthy babies Blessing Barone RN ITALIST * Plan of Rohit - Nancy Garcia [...] Goals: Clinical Goals for the Shift: VSS Mcc Patient Centered Goal for Treatment: healthy mom and babies Summary: Nancy Garcia RN ITALIST * Plan of Care - Hilda Brunner RN - 08/14/2024 10:34 AM CST Goals: Clinical Goals for the Shift: VSS Mcc Patient Centered Goal for Treatment: healthy mom [...] health care needs will improve Outcome: Progressing ITALIST * Plan of Care - Torrie Cline RN - 08/13/2024 8:59 PM CST Goals: Clinical Goals for the Shift: vss, pain control, rest Shampooer Patient Centered Goal for Treatment: healthy mom [...] improve Outcome: Progressing Summary: Torrie Cline RN ITALIST * Plan of Care - Livia Meléndez RN - 08/13/2024 9:14 [...] management, learn about next steps in care Shampooer Patient Centered Goal for Treatment: healthy mom and babies Summary: Livia Meléndez RN ITALIST * Plan of Rohit - Nancy Garcia [...] Pain relief; Monitor S/S of preE; Rest Shampooer Patient Centered Goal for Treatment: Healthy mom and healthy babies Summary: Nancy Garcia RN ITALIST * Plan of Care - Heather Abel RN - 08/12/2024 7:23 AM CST Goals: Clinical Goals for the Shift: VSS; Pain relief; Monitor S/S of preE; Rest Mcc Patient Centered Goal for Treatment: Healthy mom [...] health care needs will improve Outcome: Progressing ITALIST * Plan of Torrie Sawant RN - 08/11/2024 7:57 PM CST Goals: Clinical Goals for the Shift: vss, pain relief, monitor s/s of pre-E, rest Shampooer Patient Centered Goal for Treatment: healthy mom [...] improve Outcome: Progressing Summary: Torrie Cline RN ITALIST * Plan of Carol Raya RN - 08/11/2024 9:46 AM CST Goals: Clinical Goals for the Shift: Monitor vitals and s/sx of PreE Mcc Patient Centered Goal for Treatment: healthy mom [...] Outcome: Progressing Summary: Pt progressing towards goals. ITALIST * Plan of Care - Jessica Morel [...] the Shift: VSS, monitor s/sx of PreE Mcc Patient Centered Goal for Treatment: healthy mom and baby ITALIST * Note - Wendy Armstrong RN - [...] regarding choice to provide EBM for twins. ITALIST * Plan of Care - Hilda Brunner RN - 08/10/2024 1:33 PM CST Goals: Clinical Goals for the Shift: VSS, monitor s/sx of preE Shampooer Patient Centered Goal for Treatment: healthy mom [...] health care needs will improve Outcome: Progressing ITALIST * Plan of Care - Jessica Morel [...] the Shift: VSS, monitor s/sx of preE Shampooer Patient Centered Goal for Treatment: healthy mom and baby ITALIST * Plan of Care - Floyd Ahumada RN - 08/09/2024 9:37 [...] for the Shift: Stable VS; reactive NST Shampooer Patient Centered Goal for Treatment: healthy mom and baby Summary: Floyd Ahumada RN ITALIST * Plan of Care - Jessica Morel [...] the Shift: VSS, monitor s/sx of PreE Mcc Patient Centered Goal for Treatment: healthy mom and baby ITALIST * Plan of Care - Floyd Ahumada [...] for the Shift: Stable VS; reactive NST Mcc Patient Centered Goal for Treatment: healthy mom and baby Summary: Floyd Ahumada RN ITALIST * Plan of Care - Nick Solomon [...] VS, monitor s/s pre-e, pain control, rest Mcc Patient Centered Goal for Treatment: healthy mom and healthy baby Summary: Nick Solomon RN ITALIST * Plan of Care - Michelle Lorenzo [...] and no s/s of worsening pre E Mcc Patient Centered Goal for Treatment: healthy mom and healthy baby Summary: ITALIST * Plan of Care - Blessing Barone [...] the Shift: VS WNL; labs; promote rest Shampooer Patient Centered Goal for Treatment: healthy mom and healthy baby Blessing Barone RN * Plan of Care - Michelle Lorenzo RN - 08/06/2024 9:06 [...] NST, and no worsening s/s of pre Shampooer Patient Centered Goal for Treatment: healthy mom [...] VSS, monitor for s/s of pre-e, rest Shampooer Patient Centered Goal for Treatment: healthy mom [...] for the Shift: vs wnl, reactive NST Shampooer Patient Centered Goal for Treatment: healthy mom and baby Summary: RACHEL Mckay * Plan of Care - Kim Eugene RN - 08/04/2024 9:22 PM CDT Goals: Clinical Goals for the Shift: monitor vss and promote rest Mcc Patient Centered Goal for Treatment: healthy mom [...] NST, learn about next steps in care Shampooer Patient Centered Goal for Treatment: healthy mom [...] VS, monitor s/s pre-e, pain control, rest Shampooer Patient Centered Goal for Treatment: healthy mom [...] [place]. She delivered a viable Tiffany Leon [[id number]] male Nancy Leon [[id number]] male infant with apgars Tiffany Leon [[id number]] 9 Nancy Leon [[id number]] 8 and Tiffany Leon [[id number]] 9 Nancy Leon [[id number]] 9 at one and five minutes of [...] chosen implant for contraception. Nexplanon placed 09/20 ITALIST ITALIST ITALIST ITALIST ITALIST ITALIST ITALIST ITALIST ITALIST ITALIST ITALIST * Plan of Care - Hilda Brunner RN - 08/03/2024 3:18 PM CDT Goals: Clinical Goals for the Shift: VSS Shampooer Patient Centered Goal for Treatment: healthy mom [...] the Shift: VSS, monitor for preeclampsia complications Mcc Patient Centered Goal for Treatment: healthy mom [...] preeclampsia, reactive and reassuring monitoring x 2, Shampooer Patient Centered Goal for Treatment: healthy mom and baby * Plan of Care - Torrie Cline RN - 08/01/2024 9:27 PM CDT Goals: Clinical Goals for the Shift: vss, pain control for headache, monitor s/s of pre-E, rest Shampooer Patient Centered Goal for Treatment: healthy mom [...] Summary: Torrie Cline RN * Plan of Care - Arabella Esparza - 08/01/2024 8:19 AM CDT Problem: Discharge [...] Shift: vs wnl, reactive NST, monitor BP Shampooer Patient Centered Goal for Treatment: Positive outcomes for patient and babies Summary: Arabella Esparza GN * Plan of Care - Kim Eugene RN - 07/31/2024 8:42 PM CDT Goals: Clinical Goals for the Shift: monitor vss and promote rest Mcc Patient Centered Goal for Treatment: Positive outcomes [...] Goals for the Shift: VSS; reactive NST. Mcc Patient Centered Goal for Treatment: Positive outcomes [...] and reassuring monitoring x 2, promote rest. Shampooer Patient Centered Goal for Treatment: healthy mom [...] Leon for [facility] check in. 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 Medical insurance coverage is through [employer] [place] [employer] and [employer]. Pt is currently 26.4 weeks gestation. Social History Current address is [address] [place] [phone], where she lives with her . Currently [phone] (home) is the best phone number for future contact. Pt reports that her and family will be a positive support for her. /Father of the baby, Florentino Leon, can be reached at [phone]. FOB has been present and supportive at the hospital. Mood and Anxiety Maternal history of anxiety noted in chart. Pt reports some adjustment to longterm hospital admission, but state she is currently [...] Plan Social Work will continue to attend [facility] and collaborate with medical team. Social Work will follow for support and additional needs should they arise. ARACELIS Tyler, LITERACY COACH [facility] Clinical Pharmaceutical Specialty Representative [facility] * Plan of [...] IMMUNE GLOBULIN EVAL Timed 09/20/2024 4:48 AM HOSPITALIST BLEED SCREEN Timed 09/20/2024 4: 48 AM HOSPITALIST ABO/RH Timed 09/20/2024 4:48 AM HOSPITALIST CBC WITHOUT DIFFERENTIAL Routine 09/20/2024 4:48 AM HOSPITALIST SURGICAL PATHOLOGY Routine 09/19/2024 4: 06 PM HOSPITALIST SECTION 09/19/2024 1:56 PM HOSPITALIST TIUP Case Notes PreE w/ SF and Multiple gestation EGFR Timed 09/18/2024 6:21 AM HOSPITALIST CBC WITHOUT DIFFERENTIAL Timed 09/18/2024 6:21 AM HOSPITALIST TYPE AND SCREEN Timed 09/18/2024 6:21 AM HOSPITALIST COMPREHENSIVE METABOLIC PANEL Timed 09/18/2024 6:21 AM HOSPITALIST NONSTRESS TEST Routine 09/17/2024 2:58 PM HOSPITALIST Preeclampsia, unspecified trimester 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 US OB FOLLOW UP IP Routine 09/15/2024 1:08 PM HOSPITALIST EGFR Timed 09/15/2024 6:17 AM HOSPITALIST CBC WITHOUT DIFFERENTIAL Timed 09/15/2024 6:17 AM HOSPITALIST TYPE AND SCREEN Timed 09/15/2024 6:17 AM HOSPITALIST COMPREHENSIVE METABOLIC PANEL Timed 09/15/2024 6:17 AM HOSPITALIST NONSTRESS TEST Routine 09/13/2024 5:10 PM HOSPITALIST Preeclampsia, unspecified trimester 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 EGFR Timed 09/12/2024 6:35 AM HOSPITALIST CBC WITHOUT DIFFERENTIAL Timed 09/12/2024 6:35 AM HOSPITALIST TYPE AND SCREEN Timed 09/12/2024 6:35 AM HOSPITALIST COMPREHENSIVE METABOLIC PANEL Timed 09/12/2024 6:35 AM HOSPITALIST EGFR Timed 09/09/2024 6:24 AM HOSPITALIST CBC WITHOUT DIFFERENTIAL Timed 09/09/2024 6:24 AM HOSPITALIST TYPE AND SCREEN Timed 09/09/2024 6:24 AM HOSPITALIST COMPREHENSIVE METABOLIC PANEL Timed 09/09/2024 6:24 AM HOSPITALIST US OB LIMITED IP Routine 09/08/2024 10:29 AM HOSPITALIST NONSTRESS TEST Routine 09/06/2024 8:38 PM HOSPITALIST Preeclampsia, unspecified trimester 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 EGFR Timed 09/06/2024 4:31 AM HOSPITALIST CBC WITHOUT DIFFERENTIAL Timed 09/06/2024 4:31 AM HOSPITALIST TYPE AND SCREEN Timed 09/06/2024 4:31 AM HOSPITALIST COMPREHENSIVE METABOLIC PANEL Timed 09/06/2024 4:31 AM HOSPITALIST GROUP B STREPTOCOCCUS CULTURE Routine 09/03/2024 10:29 AM HOSPITALIST EGFR Timed 09/03/2024 5:26 AM HOSPITALIST CBC WITHOUT DIFFERENTIAL Timed 09/03/2024 5:26 AM HOSPITALIST TYPE AND SCREEN Timed 09/03/2024 5:26 AM HOSPITALIST COMPREHENSIVE METABOLIC PANEL Timed 09/03/2024 5:26 AM HOSPITALIST ECG 12-LEAD Routine 09/02/2024 4:33 PM HOSPITALIST EGFR Timed 08/31/2024 6:20 AM HOSPITALIST CBC WITHOUT DIFFERENTIAL Timed 08/31/2024 6:20 AM HOSPITALIST TYPE AND SCREEN Timed 08/31/2024 6:20 AM HOSPITALIST COMPREHENSIVE METABOLIC PANEL Timed 08/31/2024 6:20 AM HOSPITALIST NONSTRESS TEST Routine 08/29/2024 2:32 PM HOSPITALIST Preeclampsia, unspecified trimester 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 NONSTRESS TEST Routine 08/28/2024 7:47 PM HOSPITALIST Preeclampsia, unspecified trimester 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 EGFR Timed 08/28/2024 6:00 AM HOSPITALIST CBC WITHOUT DIFFERENTIAL Timed 08/28/2024 6:00 AM HOSPITALIST TYPE AND SCREEN Timed 08/28/2024 6:00 AM HOSPITALIST COMPREHENSIVE METABOLIC PANEL Timed 08/28/2024 6:00 AM HOSPITALIST EGFR Timed 08/25/2024 6:19 AM HOSPITALIST CBC WITHOUT DIFFERENTIAL Timed 08/25/2024 6:19 AM HOSPITALIST TYPE AND SCREEN Timed 08/25/2024 6:19 AM HOSPITALIST COMPREHENSIVE METABOLIC PANEL Timed 08/25/2024 6:19 AM HOSPITALIST US OB FOLLOW UP IP Routine 08/24/2024 9:37 AM HOSPITALIST EGFR Timed 08/22/2024 6:02 AM HOSPITALIST CBC WITHOUT DIFFERENTIAL Timed 08/22/2024 6:02 AM HOSPITALIST TYPE AND SCREEN Timed 08/22/2024 6:02 AM HOSPITALIST COMPREHENSIVE METABOLIC PANEL Timed 08/22/2024 6:02 AM HOSPITALIST EGFR Timed 08/19/2024 6:25 AM HOSPITALIST CBC WITHOUT DIFFERENTIAL Timed 08/19/2024 6:25 AM HOSPITALIST TYPE AND SCREEN Timed 08/19/2024 6:25 AM HOSPITALIST COMPREHENSIVE METABOLIC PANEL Timed 08/19/2024 6:25 AM HOSPITALIST US OB LIMITED IP Routine 08/16/2024 8:35 AM HOSPITALIST ANTIBODY IDENTIFICATION Routine 08/16/2024 7:34 AM HOSPITALIST EGFR Timed 08/16/2024 6:15 AM HOSPITALIST THYROID FUNCTION CASCADE Routine 08/16/2024 6:15 AM HOSPITALIST CBC WITHOUT DIFFERENTIAL Timed 08/16/2024 6:15 AM HOSPITALIST TYPE AND SCREEN Timed 08/16/2024 6:15 AM HOSPITALIST COMPREHENSIVE METABOLIC PANEL Timed 08/16/2024 6:15 AM HOSPITALIST POCT GLUCOSE DEVICE Routine 08/14/2024 3 :06 PM HOSPITALIST ECG 12-LEAD Routine 08/13/2024 9:02 AM HOSPITALIST ANTIBODY IDENTIFICATION Routine 08/13/2024 7:42 AM HOSPITALIST EGFR Timed 08/13/2024 5:44 AM HOSPITALIST HIV 1/2 ANTIBODY PLUS P24 ANTIGEN Routine 08/13/2024 5:44 AM HOSPITALIST RPR Routine 08/13/2024 5:44 AM HOSPITALIST CBC WITHOUT DIFFERENTIAL Timed 08/13/2024 5:44 AM HOSPITALIST TYPE AND SCREEN Timed 08/13/2024 5:44 AM HOSPITALIST COMPREHENSIVE METABOLIC PANEL Timed 08/13/2024 5:44 AM HOSPITALIST GTT 50GM 1HR GESTATIONAL SCREEN Timed 08/12/2024 11:29 AM HOSPITALIST ANTIBODY IDENTIFICATION Routine 08/10/2024 7:02 AM HOSPITALIST EGFR Timed 08/10/2024 4:49 AM HOSPITALIST CBC WITHOUT DIFFERENTIAL Timed 08/10/2024 4:49 AM HOSPITALIST TYPE AND SCREEN Timed 08/10/2024 4:49 AM HOSPITALIST COMPREHENSIVE METABOLIC PANEL Timed 08/10/2024 4:49 AM HOSPITALIST US OB 14 WEEKS OR OVER IP Routine 08/09/2024 9:47 AM HOSPITALIST ANTIBODY IDENTIFICATION Routine 08/07/2024 6:51 AM HOSPITALIST EGFR Timed 08/07/2024 5:00 AM HOSPITALIST CBC WITHOUT DIFFERENTIAL Timed 08/07/2024 5:00 AM HOSPITALIST COMPREHENSIVE METABOLIC PANEL Timed 08/07/2024 5:00 AM HOSPITALIST TYPE AND SCREEN Timed 08/07/2024 4:[address] CHEST PE W CONTRAST ED Urgent/IP [...] Results * Bleed Screen (09/20/2024 4:48 AM HOSPITALIST) Bleed Screen Negative Blood 09/20/2024 4:48 AM HOSPITALIST 09/20/2024 5:03 AM HOSPITALIST us Rey Quinonez MD LAB BLOOD BANK TEST ORDERABLE S Final Result [facility] [place] [address] * ABO/Rh (09/20/2024 4:48 AM HOSPITALIST) [facility] ABO Rh O Negative Blood 09/20/2024 4:48 AM HOSPITALIST 09/20/2024 5:03 AM HOSPITALIST Rey Quinonez MD LAB BLOOD BANK TEST ORDERABLE S Final Result Performing Organization Address [facility] Co de Phone Number [facility] [place] [address] * Rh Immune Globulin Eval (09/20/2024 4:48 AM HOSPITALIST) [facility] RhIg Administration 1 vial of Rh Immune Globulin (300 mcg dose) RhIg Eligible Yes, eligible [facility] Blood 09/20/2024 4:48 AM HOSPITALIST 09/20/2024 5:03 AM HOSPITALIST Narrative [facility] - 09/20/2024 5:36 AM HOSPITALIST Number of weeks ?->20 weeks or greater antibody screen result:->Negative Rhogam given?->Given Date Given?->08/01/24 Number of vials requested:->1 Result [facility] Sara Eng MD LAB BLOOD BANK TEST ORDERABL ES Final Result Performing Organization Address [facility] de Phone Number [facility] Department [place] [address] * (ABNORMAL) CBC without differential (09/20/2024 4:48 AM HOSPITALIST) [facility] WBC 10.3(H) 3.8 - 9.9 K/cumm Hgb 9.7(L) 11.9 - 15.5 g/dL [facility] Hct 28.4(L) 35.6 - 45.5 % [facility] Plt 230 150 - 400 K/cumm [facility] MPV 10.8 9.1 - 12.3 fL [facility] RBC 3.22(L) 3.90 - 5.20 M/cumm [facility] MCV 88.2 81.3 - 96.4 fL [facility] MCH 30.1 27.1 - 33.3 pg [facility] MCHC 34.2 32.3 - 35.7 g/dL [facility] RDW CV 13.9 11.1 - 14.9 % [facility] RDW SD 44.6 35.7 - 48.1 fL [facility] NRBC abs 0.00 0.00 - 0.01 K/cumm [facility] Blood 09/20/2024 4:48 AM HOSPITALIST 09/20/2024 5:11 AM HOSPITALIST us Sara Eng MD LAB BLOOD ORDERABLES Final R esult [facility] Department [place] [address] * Surgical pathology (09/19/2024 4:06 PM HOSPITALIST) Tissue (Placenta) 09/19/2024 4:06 PM HOSPITALIST 09/20/2024 8:37 AM HOSPITALIST Narrative PATHOLOGY [facility] - 09/26/2024 2:16 PM HOSPITALIST EPIC results best viewed via link to PDF [facility] [place] [address] Note to Patients: This report may contain [...] ??F : ??1995 (Age: 29) Address: ??[address] ??[address] Hospital #: ??[id number] Taken:09/19/2024 Received:09/20/2024 Reported: 09/26/2024 Patient Type: [facility] Inpatient ?? Service: Obstetrics Location: [facility] ??6800 Physician(s): ??MD Sara Parker M.D. Diagnosis: ??Placenta, delivery - 662 grams diamnionic, monochorionic, pre-term twin placenta - Acute atherosis - Accelerated villous maturation -Trivascular cords with no histopathologic abnormalities formerly [facility]/09/26/2024 14:16 By this signature, I attest that [...] discrete lesions or infarcts are grossly identified. ??Crack Off Person sections are submitted: ??A1 = arbitrarily assigned twin A, cord and membranes; A2-4 = twin A, safety representative parenchyma; A5 = common membrane and T- zone; A6 = arbitrarily assigned twin B, cord and membranes; A7-9 = twin B, safety representative parenchyma. ??Jar 3. ? sxv/09/21/2024 11:11 PA(s): Catalino Hernandez, MS, PA ([facility])CM By this signature, I attest that the above diagnosis is based upon my personal examination of the slides(and/or other material). Addenda/Procedures The performance characteristics of some immunohistochemical stains, fluorescence in-situ hybridization tests and immunophenotyping by flow cytometry cited in this report (if any) were determined by the Surgical Pathology and Flow Cytometry Departments at [facility] as part of an ongoing quality eng program and in compliance with federally mandated [...] Surgical Pathology and Flow Cytometry Departments of [facility]. ??It has not been cleared or approved by the U. S. Food and Drug Administration. IMAGES AND SCANNED DOCUMENTS, IF INCLUDED, ONLY VIEWABLE IN PDF VERSION OF REPORT us Sara Eng MD LAB PATHOLOGY ORDERABLES Fin al Result PATHOLOGY [facility] [address]rd Floor [place], [place] [phone] * eGFR (09/18/2024 6:21 AM HOSPITALIST) eGFR >90 >=60 mL/min/1. 73 m2 Comment: [...] last reviewed 2021. Blood 09/18/2024 6:21 AM HOSPITALIST 09/18/2024 6:32 AM HOSPITALIST us Anastasia Amaro MD LAB BLOOD ORDERABLES Final Result [facility] Department [place] [address] * (ABNORMAL) Comprehensive metabolic panel (09/18/2024 6:21 AM HOSPITALIST) Pathologist [facility] [place] Sodium 134(L) 135 - 145 mmol/L Potassium, pl 3.8 3.3 - 4.9 mmol/L [facility] Chloride 105 97 - 110 mmol/L [facility] CO2 23 22 - 32 mmol/L [facility] Anion gap 6 2 - 15 mmol/L [facility] BUN 9 6 - 25 mg/dL [facility] Creatinine 0.69 0.60 - 1.10 mg/dL [facility] Glucose 68(L) 70 - 199 mg/dL [facility] Comment: Interpretive Data Fasting glucose [...] 2022. Calcium 9.0 8.5 - 10.3 mg/dL [facility] Bilirubin, total 0.2 0.1 - 1.2 mg/dL [facility] Protein, pl 6.3(L) 6.5 - 8.5 g/dL [facility] Albumin 3.0(L) 3.5 - 5.0 g/dL [facility] Alk phos 125 40 - 130 Units/L [facility] ALT 14 7 - 45 Units/L [facility] AST 16 10 - 45 Units/L [facility] Blood 09/18/2024 6:21 AM HOSPITALIST 09/18/2024 6:32 AM HOSPITALIST us Anastasia Amaro MD LAB BLOOD ORDERABLES Final Result [facility] Department of Laboratories [place], [place] [id number] * (ABNORMAL) CBC without differential (09/18/2024 6:21 AM HOSPITALIST) Pathologist [facility] [place] WBC 10.0(H) 3.8 - 9.9 K/cumm Hgb 11.6(L) 11.9 - 15.5 g/dL [facility] Hct 34.0(L) 35.6 - 45.5 % [facility] Plt 250 150 - 400 K/cumm [facility] MPV 11.0 9.1 - 12.3 fL [facility] RBC 3.92 3.90 - 5.20 M/cumm [facility] MCV 86.7 81.3 - 96.4 fL [facility] MCH 29.6 27.1 - 33.3 pg [facility] MCHC 34.1 32.3 - 35.7 g/dL [facility] RDW CV 13.7 11.1 - 14.9 % [facility] RDW SD 43.1 35.7 - 48.1 fL [facility] NRBC abs 0.00 0.00 - 0.01 K/cumm [facility] Blood 09/18/2024 6:21 AM HOSPITALIST 09/18/2024 6:32 AM HOSPITALIST us Anastasia Amaro MD LAB BLOOD ORDERABLES Final Result Performing Organization Address [facility] Co de Phone Number [facility] Department [place] [address] * Type and screen (09/18/2024 6:21 AM HOSPITALIST) Abiodun, indirect Negative ABO Rh O Negative [facility] Blood 09/18/2024 6:21 AM HOSPITALIST 09/18/2024 6:35 AM HOSPITALIST Narrative [facility] - 09/18/2024 7:42 AM HOSPITALIST Has the patient had Daratumumab or Isatuximab in the past 6 months?->Unknown us Anastasia Amaro MD LAB BLOOD BANK TEST ORDERA BLES Final Result Performing Organization Address City/[facility]/ZIP Co de Phone Number [facility] [employer] [place] [address] * nonstress test (09/17/2024 2:58 PM HOSPITALIST) Narrative Sandra Christy MD - 09/17/2024 2:58 PM HOSPITALIST Joellen Schilling MD ? 09/17/2024 ??4:04 PM nonstress test Date/Time: 09/17/2024 2:58 PM Performed by: Maureen Calix MD Authorized by: Ana M Rogers MD ?? Ana M Rogers MD OB GYNE ORDERABLES Fi nal Result * US Ob Follow Up (09/15/2024 1:08 PM HOSPITALIST) Fetus# Fetus1 VIEWPOINT Estimated Weight 1,709 g&grams VIEWPOINT Placenta Details anterior VIEWPOINT Presentation Vertex; Maternal right- low VIEWPOINT Fetus# Fetus2 VIEWPOINT Estimated Weight 2,585 g&grams VIEWPOINT Placenta Details anterior VIEWPOINT Presentation Vertex; Maternal left- high VIEWPOINT Anatomical Region Laterality Modality Abdomen N/A Ultrasound 09/15/2024 1:08 PM HOSPITALIST Impressions 09/15/2024 2:24 PM HOSPITALIST Diamniotic (presumed MCDA) TIUP at 33w33d who is admitted for preE with severe features who presents for growth US was previously determined to be monochorionic by the [facility] MFM practice. A thin dividing membrane and [...] previously determined to be monochorionic by the [facility] MFMpractice. A thin dividing membrane and single [...] R esult * eGFR (09/15/2024 6:17 AM HOSPITALIST) eGFR >90 >=60 mL/min/1. 73 m2 Comment: [...] last reviewed 2021. Blood 09/15/2024 6:17 AM HOSPITALIST 09/15/2024 6:31 AM HOSPITALIST us Anastasia Amaro MD LAB BLOOD ORDERABLES Final Result [facility] Department [place] [address] * (ABNORMAL) Comprehensive metabolic panel (09/15/2024 6:17 AM HOSPITALIST) [facility] Sodium 139 135 - 145 mmol/L Potassium, pl 3.5 3.3 - 4.9 mmol/L [facility] Chloride 106 97 - 110 mmol/L [facility] CO2 21(L) 22 - 32 mmol/L [facility] Anion gap 12 2 - 15 mmol/L [facility] BUN 8 6 - 25 mg/dL [facility] Creatinine 0.66 0.60 - 1.10 mg/dL [facility] Glucose 106 70 - 199 mg/dL [facility] Comment: Interpretive Data Fasting glucose [...] 2022. Calcium 9.0 8.5 - 10.3 mg/dL [facility] Bilirubin, total <0.2 0.1 - 1.2 mg/dL [facility] Protein, pl 6.4(L) 6.5 - 8.5 g/dL [facility] Albumin 3.0(L) 3.5 - 5.0 g/dL [facility] Alk phos 124 40 - 130 Units/L [facility] ALT 19 7 - 45 Units/L [facility] AST 20 10 - 45 Units/L [facility] Blood 09/15/2024 6:17 AM HOSPITALIST 09/15/2024 6:31 AM HOSPITALIST us Anastasia Amaro MD LAB BLOOD ORDERABLES Final Result [facility] Department [place] [address] * (ABNORMAL) CBC without differential (09/15/2024 6:17 AM HOSPITALIST) WBC 10.1(H) 3.8 - 9.9 K/cumm Hgb 11.7(L) 11.9 - 15.5 g/dL [facility] Hct 34.6(L) 35.6 - 45.5 % [facility] Plt 253 150 - 400 K/cumm [facility] MPV 11.2 9.1 - 12.3 fL [facility] RBC 3.94 3.90 - 5.20 M/cumm [facility] MCV 87.8 81.3 - 96.4 fL [facility] MCH 29.7 27.1 - 33.3 pg [facility] MCHC 33.8 32.3 - 35.7 g/dL [facility] RDW CV 13.8 11.1 - 14.9 % [facility] RDW SD 44.1 35.7 - 48.1 fL [facility] NRBC abs 0.00 0.00 - 0.01 K/cumm [facility] Blood 09/15/2024 6:17 AM HOSPITALIST 09/15/2024 6:31 AM HOSPITALIST us Anastasia Amaro MD LAB BLOOD ORDERABLES Final Result Performing Organization Address [facility] Co de Phone Number [facility] Department of [employer] [place] [address] * Type and screen (09/15/2024 6:17 AM HOSPITALIST) Abiodun, indirect Negative Comment:Patient has previous antibody history ABO Rh O Negative [facility] Blood 09/15/2024 6:17 AM HOSPITALIST 09/15/2024 6:30 AM HOSPITALIST Narrative [facility] - 09/15/2024 7:57 AM HOSPITALIST Has the patient had Daratumumab or Isatuximab in the past 6 months?->Unknown us Anastasia Amaro MD LAB BLOOD BANK TEST ORDERA BLES Final Result Performing Organization Address City/[facility]/ZIP Co de Phone Number [facility] Department of [employer] [place] [address] * nonstress test (09/13/2024 5:10 PM HOSPITALIST) Narrative Sandra Christy MD - 09/13/2024 5:10 PM HOSPITALIST BolaAnastasia Bay MD ? 09/13/2024 ??5:21 PM 29 y.o. [...] nal Result * eGFR (09/12/2024 6:35 AM HOSPITALIST) eGFR >90 >=60 mL/min/1. 73 m2 Comment: [...] last reviewed 2021. Blood 09/12/2024 6:35 AM HOSPITALIST 09/12/2024 6:51 AM HOSPITALIST us Anastasia Amaro MD LAB BLOOD ORDERABLES Final Result [facility] Department [place] [address] * (ABNORMAL) Comprehensive metabolic panel (09/12/2024 6:35 AM HOSPITALIST) Sodium 139 135 - 145 mmol/L Potassium, pl 3.8 3.3 - 4.9 mmol/L [facility] Chloride 107 97 - 110 mmol/L [facility] CO2 22 22 - 32 mmol/L [facility] Anion gap 10 2 - 15 mmol/L [facility] BUN 6 6 - 25 mg/dL [facility] Creatinine 0.64 0.60 - 1.10 mg/dL [facility] Glucose 69(L) 70 - 199 mg/dL [facility] Comment: Interpretive Data Fasting glucose [...] 2022. Calcium 8.8 8.5 - 10.3 mg/dL [facility] Bilirubin, total <0.2 0.1 - 1.2 mg/dL [facility] Protein, pl 6.4(L) 6.5 - 8.5 g/dL [facility] Albumin 3.1(L) 3.5 - 5.0 g/dL [facility] Alk phos 122 40 - 130 Units/L [facility] ALT 22 7 - 45 Units/L [facility] AST 23 10 - 45 Units/L [facility] Blood 09/12/2024 6:35 AM HOSPITALIST 09/12/2024 6:51 AM HOSPITALIST us Anastasia Amaro MD LAB BLOOD ORDERABLES Final Result [facility] Department [place] [address] * (ABNORMAL) CBC without differential (09/12/2024 6:35 AM HOSPITALIST) Pathologist [facility] [place] WBC 10.0(H) 3.8 - 9.9 K/cumm Hgb 11.8(L) 11.9 - 15.5 g/dL [facility] Hct 35.3(L) 35.6 - 45.5 % [facility] Plt 226 150 - 400 K/cumm [facility] MPV 11.2 9.1 - 12.3 fL [facility] RBC 3.97 3.90 - 5.20 M/cumm [facility] MCV 88.9 81.3 - 96.4 fL [facility] MCH 29.7 27.1 - 33.3 pg [facility] MCHC 33.4 32.3 - 35.7 g/dL [facility] RDW CV 13.8 11.1 - 14.9 % [facility] RDW SD 44.5 35.7 - 48.1 fL [facility] NRBC abs 0.02(H) 0.00 - 0.01 K/cumm [facility] Blood 09/12/2024 6:35 AM HOSPITALIST 09/12/2024 6:52 AM HOSPITALIST Anastasia Amaro MD LAB BLOOD ORDERABLES Final Result [facility] Department [place] [address] * Type and screen (09/12/2024 6:35 AM HOSPITALIST) [facility] ABO Rh O Negative Abiodun, indirect Negative [facility] Comment:Patient has previous antibody history Blood 09/12/2024 6:35 AM HOSPITALIST 09/12/2024 6:48 AM HOSPITALIST Narrative [facility] - 09/12/2024 7:49 AM HOSPITALIST Has the patient had Daratumumab or Isatuximab in the past 6 months?->Unknown us Anastasia Amaro MD LAB BLOOD BANK TEST ORDERA BLES Final Result Performing Organization Address [facility] Co de Phone Number [facility] Department [place] [address] * eGFR (09/09/2024 6:24 AM HOSPITALIST) eGFR >90 >=60 mL/min/1. 73 m2 Comment: [...] last reviewed 2021. Blood 09/09/2024 6:24 AM HOSPITALIST 09/09/2024 6:52 AM HOSPITALIST us Anastasia Amaro MD LAB BLOOD ORDERABLES Final Result Performing Organization Address [facility] Co de Phone Number [facility] Department [place] [address] * (ABNORMAL) Comprehensive metabolic panel (09/09/2024 6:24 AM HOSPITALIST) Sodium 141 135 - 145 mmol/L Potassium, pl 3.8 3.3 - 4.9 mmol/L [facility] Chloride 108 97 - 110 mmol/L [facility] CO2 22 22 - 32 mmol/L [facility] Anion gap 11 2 - 15 mmol/L [facility] BUN 8 6 - 25 mg/dL [facility] Creatinine 0.75 0.60 - 1.10 mg/dL [facility] Glucose 70 70 - 199 mg/dL [facility] Comment: Interpretive Data Fasting glucose [...] 2022. Calcium 8.9 8.5 - 10.3 mg/dL [facility] Bilirubin, total <0.2 0.1 - 1.2 mg/dL [facility] Protein, pl 6.2(L) 6.5 - 8.5 g/dL [facility] Albumin 3.2(L) 3.5 - 5.0 g/dL [facility] Alk phos 117 40 - 130 Units/L [facility] ALT 22 7 - 45 Units/L [facility] AST 23 10 - 45 Units/L [facility] Blood 09/09/2024 6:24 AM HOSPITALIST 09/09/2024 6:52 AM HOSPITALIST us Anastasia Amaro MD LAB BLOOD ORDERABLES Final Result [facility] Department [place] [address] * (ABNORMAL) CBC without differential (09/09/2024 6:24 AM HOSPITALIST) Pathologist [facility] [place] WBC 8.6 3.8 - 9.9 K/cumm Hgb 10.9(L) 11.9 - 15.5 g/dL [facility] Hct 33.1(L) 35.6 - 45.5 % [facility] Plt 239 150 - 400 K/cumm [facility] MPV 11.0 9.1 - 12.3 fL [facility] RBC 3.77(L) 3.90 - 5.20 M/cumm [facility] MCV 87.8 81.3 - 96.4 fL [facility] MCH 28.9 27.1 - 33.3 pg [facility] MCHC 32.9 32.3 - 35.7 g/dL [facility] RDW CV 13.8 11.1 - 14.9 % [facility] RDW SD 43.8 35.7 - 48.1 fL [facility] NRBC abs 0.00 0.00 - 0.01 K/cumm [facility] Blood 09/09/2024 6:24 AM HOSPITALIST 09/09/2024 6:52 AM HOSPITALIST Anastasia Amaro MD LAB BLOOD ORDERABLES Final Result Performing Organization Address City/[facility] Co de Phone Number [facility] Department [place] [address] * Type and screen (09/09/2024 6:24 AM HOSPITALIST) Pathologist [facility] [place] ABO Rh O Negative Abiodun, indirect Negative [facility] Comment:Patient has previous antibody history Blood 09/09/2024 6:24 AM HOSPITALIST 09/09/2024 7:19 AM HOSPITALIST Narrative [facility] - 09/09/2024 8:51 AM HOSPITALIST Has the patient had Daratumumab or Isatuximab in the past 6 months?->Unknown Anastasia Amaro MD LAB BLOOD BANK TEST ORDERA BLES Final Result Performing Organization Address [facility] Co de Phone Number [facility] [place] Department [place] [address] * US Ob Limited (09/08/2024 10:29 AM HOSPITALIST) Fetus# Fetus1 VIEWPOINT Placenta Details anterior VIEWPOINT Presentation Vertex; Maternal right- low VIEWPOINT Fetus# Fetus2 VIEWPOINT Placenta Details anterior VIEWPOINT Presentation Vertex; Maternal left- high (presenting) VIEWPOINT Anatomical Region Laterality Modality Abdomen N/A Ultrasound 09/08/2024 10:2 9 AM HOSPITALIST Impressions 09/08/2024 11:25 AM HOSPITALIST 1. Mo/di twin IUP at 32w 3d. [...] esult * nonstress test (09/06/2024 8:38 PM HOSPITALIST) Narrative Anastasia Amaro MD - 09/06/2024 8:38 PM HOSPITALIST Pauline Simms MD ? 09/06/2024 ??8:41 PM Baby A FHR Baseline: 125 Variability: moderate Accelerations: absent Decelerations: absent in last part of tracing, was initially having small variable decels in monitoring Reactive: Yes Baby B FHR Baseline: 130 Variability: moderate Accelerations: present Decelerations: absent Reactive: Yes 29 y.o. at 32w1d a/f preeclampsia with SF On monitor [id number] Contractions: absent I have reviewed NST and instructed RN to take off monitor Pauline Simms MD us Ana M Rogers MD OB GYNE ORDERABLES Fi nal Result * eGFR (09/06/2024 4:31 AM HOSPITALIST) eGFR >90 >=60 mL/min/1. 73 m2 Comment: [...] data was last reviewed 2021. Blood 09/06/2024 4:3 1 AM HOSPITALIST 09/06/2024 4:53 AM HOSPITALIST us Anastasia Amaro MD LAB BLOOD ORDERABLES Final Result [facility] Department [place] [address] * (ABNORMAL) Comprehensive metabolic panel (09/06/2024 4:31 AM HOSPITALIST) Sodium 138 135 - 145 mmol/L Potassium, pl 3.6 3.3 - 4.9 mmol/L [facility] Chloride 105 97 - 110 mmol/L [facility] CO2 24 22 - 32 mmol/L [facility] Anion gap 9 2 - 15 mmol/L [facility] BUN 7 6 - 25 mg/dL [facility] Creatinine 0.63 0.60 - 1.10 mg/dL [facility] Glucose 62(L) 70 - 199 mg/dL [facility] Comment: Interpretive Data Fasting glucose [...] 2022. Calcium 9.3 8.5 - 10.3 mg/dL [facility] Bilirubin, total 0.3 0.1 - 1.2 mg/dL [facility] Protein, pl 6.6 6.5 - 8.5 g/dL [facility] Albumin 3.2(L) 3.5 - 5.0 g/dL [facility] Alk phos 118 40 - 130 Units/L [facility] ALT 23 7 - 45 Units/L [facility] AST 22 10 - 45 Units/L [facility] Blood 09/06/2024 4:31 AM HOSPITALIST 09/06/2024 4:53 AM HOSPITALIST us Anastasia Amaro MD LAB BLOOD ORDERABLES Final Result [facility] Department [place] [address] * (ABNORMAL) CBC without differential (09/06/2024 4:31 AM HOSPITALIST) [facility] WBC 10.3(H) 3.8 - 9.9 K/cumm Hgb 11.7(L) 11.9 - 15.5 g/dL [facility] Hct 34.5(L) 35.6 - 45.5 % [facility] Plt 249 150 - 400 K/cumm [facility] MPV 11.1 9.1 - 12.3 fL [facility] RBC 3.96 3.90 - 5.20 M/cumm [facility] MCV 87.1 81.3 - 96.4 fL [facility] MCH 29.5 27.1 - 33.3 pg [facility] MCHC 33.9 32.3 - 35.7 g/dL [facility] RDW CV 13.6 11.1 - 14.9 % [facility] RDW SD 42.7 35.7 - 48.1 fL [facility] NRBC abs 0.00 0.00 - 0.01 K/cumm [facility] Blood 09/06/2024 4:31 AM HOSPITALIST 09/06/2024 4:54 AM HOSPITALIST us Anastasia Amaro MD LAB BLOOD ORDERABLES Final Result [facility] Department [place] [address] * Type and screen (09/06/2024 4:31 AM HOSPITALIST) ABO Rh O Negative Abiodun, indirect Negative [facility] Comment:Patient has previous antibody history Blood 09/06/2024 4:3 1 AM HOSPITALIST 09/06/2024 6:11 AM HOSPITALIST [facility]ative [facility] 09/06/2024 7:16 AM HOSPITALIST Has the patient had Daratumumab or Isatuximab in the past 6 months?->Unknown us Anastasia Amaro MD LAB BLOOD BANK TEST ORDERA BLES Final Result Performing Organization Address [facility] Co de Phone Number [facility] Department of Laboratories [place] [employer], [place] [id number] * Group B streptococcal culture Vaginal/Rectal (09/03/2024 10:29 AM HOSPITALIST) Report Final Report: Negative Vaginal/Rectal 09/03/2024 10 :29 AM HOSPITALIST 09/03/2024 10:47 AM HOSPITALIST Narrative [facility] - 09/07/2024 11:05 AM HOSPITALIST Testing performed by [facility] Microbiology [facility] ([phone]). us Joellen Julio MD LAB MICROBIOLOGY - GENERAL O RDERABLES Final Result Performing Organization Address [facility] de Phone Number [facility] Department [place] [address] * eGFR (09/03/2024 5:26 AM HOSPITALIST) eGFR >90 >=60 mL/min/1. 73 m2 Comment: [...] last reviewed 2021. Blood 09/03/2024 5:26 AM HOSPITALIST 09/03/2024 5:39 AM HOSPITALIST Anastasia Amaro MD LAB BLOOD ORDERABLES Final Result [facility] Department [place] [address] * (ABNORMAL) Comprehensive metabolic panel (09/03/2024 5:26 AM HOSPITALIST) Sodium 139 135 - 145 mmol/L Potassium, pl 4.0 3.3 - 4.9 mmol/L [facility] Chloride 105 97 - 110 mmol/L [facility] CO2 20(L) 22 - 32 mmol/L [facility] Anion gap 14 2 - 15 mmol/L [facility] BUN 8 6 - 25 mg/dL [facility] Creatinine 0.55(L) 0.60 - 1.10 mg/dL [facility] Glucose 68(L) 70 - 199 mg/dL [facility] Comment: Interpretive Data Fasting glucose [...] 2022. Calcium 9.3 8.5 - 10.3 mg/dL [facility] Bilirubin, total 0.3 0.1 - 1.2 mg/dL [facility] Protein, pl 6.4(L) 6.5 - 8.5 g/dL [facility] Albumin 3.3(L) 3.5 - 5.0 g/dL [facility] Alk phos 111 40 - 130 Units/L [facility] ALT 22 7 - 45 Units/L [facility] AST 24 10 - 45 Units/L [facility] Blood 09/03/2024 5:26 AM HOSPITALIST 09/03/2024 5:39 AM HOSPITALIST Anastasia Amaro MD LAB BLOOD ORDERABLES Final Result [facility] Department [place] [address] * (ABNORMAL) CBC without differential (09/03/2024 5:26 AM HOSPITALIST) WBC 12.1(H) 3.8 - 9.9 K/cumm Hgb 11.7(L) 11.9 - 15.5 g/dL [facility] Hct 34.0(L) 35.6 - 45.5 % [facility] Plt 273 150 - 400 K/cumm [facility] MPV 11.0 9.1 - 12.3 fL [facility] RBC 3.97 3.90 - 5.20 M/cumm [facility] MCV 85.6 81.3 - 96.4 fL [facility] MCH 29.5 27.1 - 33.3 pg [facility] MCHC 34.4 32.3 - 35.7 g/dL [facility] RDW CV 13.3 11.1 - 14.9 % [facility] RDW SD 41.7 35.7 - 48.1 fL [facility] NRBC abs 0.00 0.00 - 0.01 K/cumm [facility] Blood 09/03/2024 5:26 AM HOSPITALIST 09/03/2024 5:39 AM HOSPITALIST Anastasia Amaro MD LAB BLOOD ORDERABLES Final Result Performing Organization Address City/[facility] [place] [address] * Type and screen (09/03/2024 5:26 AM HOSPITALIST) Pathologist [facility] [place] Abiodun, indirect Negative Comment:Patient has previous antibody history ABO Rh O Negative [facility] Blood 09/03/2024 5:26 AM HOSPITALIST 09/03/2024 5:32 AM HOSPITALIST Narrative [facility] - 09/03/2024 6:27 AM HOSPITALIST Has the patient had Daratumumab or Isatuximab in the past 6 months?->Unknown us Anastasia Amaro MD LAB BLOOD BANK TEST ORDERA BLES Final Result Performing Organization Address [facility] [place] [address] * ECG 12 lead (09/02/2024 4:33 PM HOSPITALIST) Ventricular Rate EKG/Min [address] [facility] Atrial Rate [address] [facility] IN-Interval (MSEC) [address] [facility] QRS-Interval (MSEC) [address] [facility] QT-Interval (MSEC) [address] [facility] QTc [address] [facility] P [place] [address] [facility] R [place] [address] [facility] T [place] [address] [facility] Diagnosis Sinus tachycardia Otherwise normal ECG No previous ECGs available Confirmed by SAMANTA KAPLAN M.D ([id number]) on 09/06/2024 2:44:26 PM [facility] 09/02/2024 4:33 PM HOSPITALIST 09/06/2024 2:44 PM HOSPITALIST us Joellen Julio MD ECG ORDERABLES Final Result [facility] * eGFR (08/31/2024 6:20 AM HOSPITALIST) eGFR >90 >=60 mL/min/1. 73 m2 Comment: [...] last reviewed 2021. Blood 08/31/2024 6:20 AM HOSPITALIST 08/31/2024 7:25 AM HOSPITALIST us Anastasia Amaro MD LAB BLOOD ORDERABLES Final Result [facility] Department [place] [address] * (ABNORMAL) Comprehensive metabolic panel (08/31/2024 6:20 AM HOSPITALIST) Sodium 137 135 - 145 mmol/L Potassium, pl 3.7 3.3 - 4.9 mmol/L [facility] Chloride 103 97 - 110 mmol/L [facility] CO2 22 22 - 32 mmol/L [facility] Anion gap 12 2 - 15 mmol/L [facility] BUN 6 6 - 25 mg/dL [facility] Creatinine 0.56(L) 0.60 - 1.10 mg/dL [facility] Glucose 70 70 - 199 mg/dL [facility] Comment: Interpretive Data Fasting glucose [...] 2022. Calcium 9.5 8.5 - 10.3 mg/dL [facility] Bilirubin, total 0.2 0.1 - 1.2 mg/dL [facility] Protein, pl 6.4(L) 6.5 - 8.5 g/dL [facility] Albumin 3.2(L) 3.5 - 5.0 g/dL [facility] Alk phos 103 40 - 130 Units/L [facility] ALT 28 7 - 45 Units/L [facility] AST 25 10 - 45 Units/L [facility] Blood 08/31/2024 6:20 AM HOSPITALIST 08/31/2024 7:25 AM HOSPITALIST us Anastasia Amaro MD LAB BLOOD ORDERABLES Final Result [facility] Department [place] [address] * (ABNORMAL) CBC without differential (08/31/2024 6:20 AM HOSPITALIST) Pathologist [facility] [place] WBC 10.5(H) 3.8 - 9.9 K/cumm Hgb 11.5(L) 11.9 - 15.5 g/dL [facility] Hct 34.1(L) 35.6 - 45.5 % [facility] Plt 282 150 - 400 K/cumm [facility] MPV 10.9 9.1 - 12.3 fL [facility] RBC 3.93 3.90 - 5.20 M/cumm [facility] MCV 86.8 81.3 - 96.4 fL [facility] MCH 29.3 27.1 - 33.3 pg [facility] MCHC 33.7 32.3 - 35.7 g/dL [facility] RDW CV 13.7 11.1 - 14.9 % [facility] RDW SD 42.6 35.7 - 48.1 fL [facility] NRBC abs 0.00 0.00 - 0.01 K/cumm [facility] Blood 08/31/2024 6:20 AM HOSPITALIST 08/31/2024 7:25 AM HOSPITALIST us Anastasia Amaro MD LAB BLOOD ORDERABLES Final Result Performing Organization Address City/[facility]/ZIP Co de Phone Number [facility] [place] [address] * Type and screen (08/31/2024 6:20 AM HOSPITALIST) ABO Rh O Negative Abiodun, indirect Negative [facility] Comment:Patient has previous antibody history Blood 08/31/2024 6:20 AM HOSPITALIST 08/31/2024 7:41 AM HOSPITALIST Narrative [facility] - 08/31/2024 8:26 AM HOSPITALIST Has the patient had Daratumumab or Isatuximab in the past 6 months?->Unknown Anastasia Amaro MD LAB BLOOD BANK TEST ORDERA BLES Final Result Performing Organization Address City/[facility]/ZIP Co de Phone Number [facility] [place] [address] * nonstress test (08/29/2024 2:32 PM HOSPITALIST) Narrative Nini Cortez MD - 08/29/2024 2:32 PM HOSPITALIST Maureen Calix MD ? 08/29/2024 ??3:38 PM nonstress test Date/Time: 08/29/2024 2:32 PM Performed by: Maureen Calix MD Authorized by: Ana M Rogers MD ?? us Ana M Rogers MD OB GYNE ORDERABLES Fi nal Result * nonstress test (08/28/2024 7:47 PM HOSPITALIST) Narrative Nini Cortez MD - 08/28/2024 7:47 PM HOSPITALIST Francisca Yun MD ? 08/28/2024 ??7:48 PM A FHR Baseline: 120 Variability: moderate Reactive: Yes Contractions: absent B FHR Baseline: 130 Variability: moderate Reactive: Yes Contractions: absent Comments: No decels x2 I have reviewed NST and instructed RN to take off monitor Francisca Yun MD us Ana M Rogers MD OB GYNE ORDERABLES Fi nal Result * eGFR (08/28/2024 6:00 AM HOSPITALIST) eGFR >90 >=60 mL/min/1. 73 m2 Comment: [...] last reviewed 2021. Blood 08/28/2024 6:00 AM HOSPITALIST 08/28/2024 6:13 AM HOSPITALIST us Anastasia Amaro MD LAB BLOOD ORDERABLES Final Result [facility] Department [place] [address] * (ABNORMAL) Comprehensive metabolic panel (08/28/2024 6:00 AM HOSPITALIST) [facility] Sodium 137 135 - 145 mmol/L Potassium, pl 3.6 3.3 - 4.9 mmol/L [facility] Chloride 105 97 - 110 mmol/L [facility] CO2 21(L) 22 - 32 mmol/L [facility] Anion gap 11 2 - 15 mmol/L [facility] BUN 8 6 - 25 mg/dL [facility] Creatinine 0.52(L) 0.60 - 1.10 mg/dL [facility] Glucose 74 70 - 199 mg/dL [facility] Comment: Interpretive Data Fasting glucose [...] 2022. Calcium 9.3 8.5 - 10.3 mg/dL [facility] Bilirubin, total 0.2 0.1 - 1.2 mg/dL [facility] Protein, pl 6.2(L) 6.5 - 8.5 g/dL [facility] Albumin 3.2(L) 3.5 - 5.0 g/dL [facility] Alk phos 96 40 - 130 Units/L [facility] ALT 25 7 - 45 Units/L [facility] AST 22 10 - 45 Units/L [facility] Blood 08/28/2024 6:00 AM HOSPITALIST 08/28/2024 6:13 AM HOSPITALIST us Anastasia Amaro MD LAB BLOOD ORDERABLES Final Result [facility] Department [place] [address] * (ABNORMAL) CBC without differential (08/28/2024 6:00 AM HOSPITALIST) WBC 10.3(H) 3.8 - 9.9 K/cumm Hgb 11.2(L) 11.9 - 15.5 g/dL [facility] Hct 33.0(L) 35.6 - 45.5 % [facility] Plt 289 150 - 400 K/cumm [facility] MPV 10.7 9.1 - 12.3 fL [facility] RBC 3.78(L) 3.90 - 5.20 M/cumm [facility] MCV 87.3 81.3 - 96.4 fL [facility] MCH 29.6 27.1 - 33.3 pg [facility] MCHC 33.9 32.3 - 35.7 g/dL [facility] RDW CV 13.7 11.1 - 14.9 % [facility] RDW SD 43.6 35.7 - 48.1 fL [facility] NRBC abs 0.00 0.00 - 0.01 K/cumm [facility] Blood 08/28/2024 6:00 AM HOSPITALIST 08/28/2024 6:20 AM HOSPITALIST Anastasia Amaro MD LAB BLOOD ORDERABLES Final Result Performing Organization Address [facility] de Phone Number [facility] [place] [address] * Type and screen (08/28/2024 6:00 AM HOSPITALIST) [facility] ABO Rh O Negative Comment:Patient has previous antibody history Abiodun, indirect Negative [facility] Blood 08/28/2024 6:00 AM HOSPITALIST 08/28/2024 6:54 AM HOSPITALIST Narrative [facility] - 08/28/2024 7:53 AM HOSPITALIST Has the patient had Daratumumab or Isatuximab in the past 6 months?->Unknown Anastasia Amaro MD LAB BLOOD BANK TEST ORDERA BLES Final Result Performing Organization Address [facility] de Phone Number [facility] [place] [address] * eGFR (08/25/2024 6:19 AM HOSPITALIST) [facility] eGFR >90 >=60 mL/min/1. 73 m2 [...] last reviewed 2021. Blood 08/25/2024 6:19 AM HOSPITALIST 08/25/2024 6:33 AM HOSPITALIST us Anastasia Amaro MD LAB BLOOD ORDERABLES Final Result [facility] Department [place] [address] * (ABNORMAL) Comprehensive metabolic panel (08/25/2024 6:19 AM HOSPITALIST) Sodium 139 135 - 145 mmol/L Potassium, pl 3.5 3.3 - 4.9 mmol/L [facility] Chloride 105 97 - 110 mmol/L [facility] CO2 22 22 - 32 mmol/L [facility] Anion gap 12 2 - 15 mmol/L [facility] BUN 6 6 - 25 mg/dL [facility] Creatinine 0.53(L) 0.60 - 1.10 mg/dL [facility] Glucose 70 70 - 199 mg/dL [facility] Comment: Interpretive Data Fasting glucose [...] 2022. Calcium 9.2 8.5 - 10.3 mg/dL [facility] Bilirubin, total 0.2 0.1 - 1.2 mg/dL [facility] Protein, pl 6.4(L) 6.5 - 8.5 g/dL [facility] Albumin 3.2(L) 3.5 - 5.0 g/dL [facility] Alk phos 92 40 - 130 Units/L [facility] ALT 22 7 - 45 Units/L [facility] AST 22 10 - 45 Units/L [facility] Blood 08/25/2024 6:19 AM HOSPITALIST 08/25/2024 6:33 AM HOSPITALIST us Anastasia Amaro MD LAB BLOOD ORDERABLES Final Result [facility] Department [place] [address] * (ABNORMAL) CBC without differential (08/25/2024 6:19 AM HOSPITALIST) WBC 10.5(H) 3.8 - 9.9 K/cumm Hgb 11.4(L) 11.9 - 15.5 g/dL [facility] Hct 33.4(L) 35.6 - 45.5 % [facility] Plt 299 150 - 400 K/cumm [facility] MPV 10.6 9.1 - 12.3 fL [facility] RBC 3.90 3.90 - 5.20 M/cumm [facility] MCV 85.6 81.3 - 96.4 fL [facility] MCH 29.2 27.1 - 33.3 pg [facility] MCHC 34.1 32.3 - 35.7 g/dL [facility] RDW CV 13.4 11.1 - 14.9 % [facility] RDW SD 41.7 35.7 - 48.1 fL [facility] NRBC abs 0.00 0.00 - 0.01 K/cumm [facility] Blood 08/25/2024 6:19 AM HOSPITALIST 08/25/2024 6:32 AM HOSPITALIST Anastasia Amaro MD LAB BLOOD ORDERABLES Final Result [facility] Department [place] [address] * Type and screen (08/25/2024 6:19 AM HOSPITALIST) Abiodun, indirect Negative Comment:Patient has previous antibody history ABO Rh O Negative [facility] Blood 08/25/2024 6:19 AM HOSPITALIST 08/25/2024 7:06 AM HOSPITALIST Narrative [facility] [facility] - 08/25/2024 8:01 AM HOSPITALIST Has the patient had Daratumumab or Isatuximab in the past 6 months?->Unknown us Anastasia Amaro MD LAB BLOOD BANK TEST ORDERA BLES Final Result [facility] Department [place] [address] * US Ob Follow Up (08/24/2024 9:37 AM HOSPITALIST) Pathologist [facility] [place] Fetus# Fetus1 VIEWPOINT Estimated Weight 1,348 g&grams VIEWPOINT Placenta Details anterior VIEWPOINT Presentation Vertex; Maternal right- low VIEWPOINT Fetus# Fetus2 VIEWPOINT Estimated Weight 1,784 g&grams VIEWPOINT Placenta Details anterior VIEWPOINT Presentation Vertex; Maternal left- high (presenting) VIEWPOINT Anatomical Region Laterality Modality Abdomen N/A Ultrasound 08/24/2024 9:37 AM HOSPITALIST Impressions 08/24/2024 2:06 PM HOSPITALIST 1. Presumed Mo/Di twin IUP at 30w [...] Edite d * eGFR (08/22/2024 6:02 AM HOSPITALIST) eGFR >90 >=60 mL/min/1. 73 m2 Comment: [...] last reviewed 2021. Blood 08/22/2024 6:02 AM HOSPITALIST 08/22/2024 6:18 AM HOSPITALIST Anastasia Amaro MD LAB BLOOD ORDERABLES Final Result Performing Organization Address City/State/ZIP Co ga Phone Number [facility] Department [place] [address] * (ABNORMAL) Comprehensive metabolic panel (08/22/2024 6:02 AM HOSPITALIST) [facility] Signature Sodium 138 135 - 145 mmol/L Potassium, pl 3.7 3.3 - 4.9 mmol/L [facility] Chloride 104 97 - 110 mmol/L [facility] CO2 23 22 - 32 mmol/L [facility] Anion gap 11 2 - 15 mmol/L [facility] BUN 7 6 - 25 mg/dL [facility] Creatinine 0.53(L) 0.60 - 1.10 mg/dL [facility] Glucose 72 70 - 199 mg/dL [facility] Comment: Interpretive Data Fasting glucose [...] 2022. Calcium 9.3 8.5 - 10.3 mg/dL [facility] Bilirubin, total 0.2 0.1 - 1.2 mg/dL [facility] Protein, pl 6.6 6.5 - 8.5 g/dL [facility] Albumin 3.2(L) 3.5 - 5.0 g/dL [facility] Alk phos 90 40 - 130 Units/L [facility] ALT 19 7 - 45 Units/L [facility] AST 18 10 - 45 Units/L [facility] Blood 08/22/2024 6:02 AM HOSPITALIST 08/22/2024 6:18 AM HOSPITALIST us Anastasia Amaro MD LAB BLOOD ORDERABLES Final Result [facility] Department [place] [address] * (ABNORMAL) CBC without differential (08/22/2024 6:02 AM HOSPITALIST) WBC 12.2(H) 3.8 - 9.9 K/cumm Hgb 11.8(L) 11.9 - 15.5 g/dL [facility] Hct 34.4(L) 35.6 - 45.5 % [facility] Plt 277 150 - 400 K/cumm [facility] MPV 10.4 9.1 - 12.3 fL [facility] RBC 4.02 3.90 - 5.20 M/cumm [facility] MCV 85.6 81.3 - 96.4 fL [facility] MCH 29.4 27.1 - 33.3 pg [facility] MCHC 34.3 32.3 - 35.7 g/dL [facility] RDW CV 13.6 11.1 - 14.9 % [facility] RDW SD 42.4 35.7 - 48.1 fL [facility] NRBC abs 0.00 0.00 - 0.01 K/cumm [facility] Blood 08/22/2024 6:02 AM HOSPITALIST 08/22/2024 6:18 AM HOSPITALIST Anastasia Amaro MD LAB BLOOD ORDERABLES Final Result Performing Organization Address [facility]/[place] de Phone Number [facility] Department [place] [address] * Type and screen (08/22/2024 6:02 AM HOSPITALIST) Pathologist [facility] [place] Abiodun, indirect Negative Comment:Patient has previous antibody history ABO Rh O Negative [facility] Blood 08/22/2024 6:02 AM HOSPITALIST 08/22/2024 6:24 AM HOSPITALIST Narrative [facility] - 08/22/2024 7:25 AM HOSPITALIST Has the patient had Daratumumab or Isatuximab in the past 6 months?->Unknown Anastasia Amaro MD LAB BLOOD BANK TEST ORDERA BLES Final Result Performing Organization Address [facility]/[place] de Phone Number [facility] Department [place] [address] * eGFR (08/19/2024 6:25 AM HOSPITALIST) [facility] eGFR >90 >=60 mL/min/1. 73 m2 [...] last reviewed 2021. Blood 08/19/2024 6:25 AM HOSPITALIST 08/19/2024 7:23 AM HOSPITALIST us Anastasia Amaro MD LAB BLOOD ORDERABLES Final Result [facility] Department [place] [address] * (ABNORMAL) Comprehensive metabolic panel (08/19/2024 6:25 AM HOSPITALIST) Sodium 138 135 - 145 mmol/L Potassium, pl 3.7 3.3 - 4.9 mmol/L [facility] Chloride 105 97 - 110 mmol/L [facility] CO2 23 22 - 32 mmol/L [facility] Anion gap 10 2 - 15 mmol/L [facility] BUN 7 6 - 25 mg/dL [facility] Creatinine 0.54(L) 0.60 - 1.10 mg/dL [facility] Glucose 68(L) 70 - 199 mg/dL [facility] Comment: Interpretive Data Fasting glucose [...] 2022. Calcium 9.3 8.5 - 10.3 mg/dL [facility] Bilirubin, total 0.2 0.1 - 1.2 mg/dL [facility] Protein, pl 6.3(L) 6.5 - 8.5 g/dL [facility] Albumin 3.0(L) 3.5 - 5.0 g/dL [facility] Alk phos 88 40 - 130 Units/L [facility] ALT 13 7 - 45 Units/L [facility] AST 18 10 - 45 Units/L [facility] Blood 08/19/2024 6:25 AM HOSPITALIST 08/19/2024 7:23 AM HOSPITALIST us Anastasia Amaro MD LAB BLOOD ORDERABLES Final Result [facility] Department [place] [address] * (ABNORMAL) CBC without differential (08/19/2024 6:25 AM HOSPITALIST) WBC 11.2(H) 3.8 - 9.9 K/cumm Hgb 11.3(L) 11.9 - 15.5 g/dL [facility] Hct 33.9(L) 35.6 - 45.5 % [facility] Plt 249 150 - 400 K/cumm [facility] MPV 10.6 9.1 - 12.3 fL [facility] RBC 3.89(L) 3.90 - 5.20 M/cumm [facility] MCV 87.1 81.3 - 96.4 fL [facility] MCH 29.0 27.1 - 33.3 pg [facility] MCHC 33.3 32.3 - 35.7 g/dL [facility] RDW CV 13.4 11.1 - 14.9 % [facility] RDW SD 42.5 35.7 - 48.1 fL [facility] NRBC abs 0.00 0.00 - 0.01 K/cumm [facility] Blood 08/19/2024 6:25 AM HOSPITALIST 08/19/2024 7:23 AM HOSPITALIST us Anastasia Amaro MD LAB BLOOD ORDERABLES Final Result Performing Organization Address City/[facility] Co de Phone Number [facility] [employer] [place] [address] * Type and screen (08/19/2024 6:25 AM HOSPITALIST) Abiodun, indirect Negative ABO Rh O Negative [facility] Comment:Patient has previous antibody history Blood 08/19/2024 6:25 AM HOSPITALIST 08/19/2024 7:31 AM HOSPITALIST Narrative [facility] - 08/19/2024 8:22 AM HOSPITALIST Has the patient had Daratumumab or Isatuximab in the past 6 months?->Unknown Anastasia Amaro MD LAB BLOOD BANK TEST ORDERA BLES Final Result Performing Organization Address [facility] Co de Phone Number [facility] [place] [address] * US Ob Limited (08/16/2024 8:35 AM HOSPITALIST) Fetus# Fetus1 VIEWPOINT Placenta Details anterior VIEWPOINT Presentation Transverse, maternal right-low VIEWPOINT Fetus# Fetus2 VIEWPOINT Placenta Details anterior VIEWPOINT Presentation Vertex; Maternal left- high VIEWPOINT Anatomical Region Laterality Modality Abdomen N/A Ultrasound 08/16/2024 8:36 AM HOSPITALIST Impressions 08/16/2024 2:23 PM HOSPITALIST Diamniotic (presumed MCDA) TIUP at 29w1d who is admitted for preE with severe features who presents for ??TTTS screen.Chorionicity was not fully assessed but was previously determined to be monochorionic by the [facility] MFM practice. Anatomic surveys were also completed [...] previously determined to be monochorionic by the [facility] MFMpractice. Anatomic surveys were also completed there. [...] Result * Antibody identification (08/16/2024 7:34 AM HOSPITALIST) Pathologist [facility] [place] Antibody ID 1 Passive Anti-D Blood 08/16/2024 7:3 4 AM HOSPITALIST 08/16/2024 7:34 AM HOSPITALIST Anastasia Amaro MD LAB BLOOD BANK TEST ORDERA BLES Final Result [facility] Department [place] [address] * eGFR (08/16/2024 6:15 AM HOSPITALIST) Pathologist [facility] [place] eGFR >90 >=60 mL/min/1. 73 m2 Comment: [...] last reviewed 2021. Blood 08/16/2024 6:15 AM HOSPITALIST 08/16/2024 6:29 AM HOSPITALIST us Anastasia Amaro MD LAB BLOOD ORDERABLES Final Result [facility] Department [place] [address] * (ABNORMAL) Comprehensive metabolic panel (08/16/2024 6:15 AM HOSPITALIST) Sodium 139 135 - 145 mmol/L Potassium, pl 3.4 3.3 - 4.9 mmol/L [facility] Chloride 105 97 - 110 mmol/L [facility] CO2 23 22 - 32 mmol/L [facility] Anion gap 11 2 - 15 mmol/L [facility] BUN 8 6 - 25 mg/dL [facility] Creatinine 0.51(L) 0.60 - 1.10 mg/dL [facility] Glucose 72 70 - 199 mg/dL [facility] Comment: Interpretive Data Fasting glucose [...] 2022. Calcium 9.2 8.5 - 10.3 mg/dL [facility] Bilirubin, total 0.2 0.1 - 1.2 mg/dL [facility] Protein, pl 6.4(L) 6.5 - 8.5 g/dL [facility] Albumin 3.2(L) 3.5 - 5.0 g/dL [facility] Alk phos 86 40 - 130 Units/L [facility] ALT 16 7 - 45 Units/L [facility] AST 16 10 - 45 Units/L [facility] Blood 08/16/2024 6:15 AM HOSPITALIST 08/16/2024 6:29 AM HOSPITALIST us Anastasia Amaro MD LAB BLOOD ORDERABLES Final Result [facility] Department [place] [address] * (ABNORMAL) CBC without differential (08/16/2024 6:15 AM HOSPITALIST) WBC 10.9(H) 3.8 - 9.9 K/cumm Hgb 11.6(L) 11.9 - 15.5 g/dL [facility] Hct 34.0(L) 35.6 - 45.5 % [facility] Plt 257 150 - 400 K/cumm [facility] MPV 10.4 9.1 - 12.3 fL [facility] RBC 3.95 3.90 - 5.20 M/cumm [facility] MCV 86.1 81.3 - 96.4 fL [facility] MCH 29.4 27.1 - 33.3 pg [facility] MCHC 34.1 32.3 - 35.7 g/dL [facility] RDW CV 13.3 11.1 - 14.9 % [facility] RDW SD 41.5 35.7 - 48.1 fL [facility] NRBC abs 0.00 0.00 - 0.01 K/cumm [facility] Blood 08/16/2024 6:15 AM HOSPITALIST 08/16/2024 6:30 AM HOSPITALIST Anastasia Amaro MD LAB BLOOD ORDERABLES Final Result Performing Organization Address [facility] Co de Phone Number [facility] [place] [address] * (ABNORMAL) Type and screen (08/16/2024 6:15 AM HOSPITALIST) Abiodun, indirect Positive(A) ABO Rh O Negative [facility] Blood 08/16/2024 6:15 AM HOSPITALIST 08/16/2024 6:25 AM HOSPITALIST Narrative [facility] - 08/16/2024 7:34 AM HOSPITALIST Has the patient had Daratumumab or Isatuximab in the past 6 months?->Unknown Anastasia Amaro MD LAB BLOOD BANK TEST ORDERA BLES Final Result Performing Organization Address [facility] Co de Phone Number [facility] [place] [address] * Thyroid Function Weber (08/16/2024 6:15 AM HOSPITALIST) TSH 3.83 0.30 - 4.20 mcIUnit/mL Blood 08/16/2024 6:15 AM HOSPITALIST 08/16/2024 6:29 AM HOSPITALIST Anastasia Amaro MD LAB BLOOD ORDERABLES Final Result Performing Organization Address [facility] Co de Phone Number [facility] [place] [address] * POCT glucose (08/14/2024 3:06 PM HOSPITALIST) Glucose, POC 103 70 - 199 mg/dL Comment:Post Meal Glucose comment 1 Post Meal [facility] Blood 08/14/2024 3:06 PM HOSPITALIST 08/14/2024 3:06 PM HOSPITALIST Anastasia Amaro MD LAB POCT ORDERABLES - JELENA CE Final Result [facility] Department [place] [address] * ECG 12 lead (08/13/2024 9:02 AM HOSPITALIST) Pathologist [facility] [place] Ventricular Rate EKG/Min [address] [facility] Atrial Rate [address] [facility] IN-Interval (MSEC) [address] [facility] QRS-Interval (MSEC) [address] [facility] QT-Interval (MSEC) 324 ms [facility] QTc 461 ms [facility] P [place] [address] [facility] R [place] 18 degrees [facility] T [place] 29 degrees [facility] Diagnosis Sinus tachycardia Otherwise normal ECG When compared with ECG of 04-AUG-2024 17:45, No significant change was found Confirmed by SAMANTA KAPLAN M.D ([id number]) on 08/15/2024 12:21:02 PM [facility] 08/13/2024 9:02 AM HOSPITALIST 08/15/2024 12:21 PM HOSPITALIST us Anastasia Amaro MD ECG ORDERABLES Final Resu lt [facility] * Antibody identification (08/13/2024 7:42 AM HOSPITALIST) Pathologist [facility] [place] Antibody ID 1 Passive Anti-D Blood 08/13/2024 7:42 AM HOSPITALIST 08/13/2024 7:42 AM HOSPITALIST us Anastasia Amaro MD LAB BLOOD BANK TEST ORDERA BLES Final Result Performing Organization Address City/[facility]/ZIP Co de Phone Number [facility] Department of [employer] [place] [address] * eGFR (08/13/2024 5:44 AM HOSPITALIST) eGFR >90 >=60 mL/min/1. 73 m2 Comment: [...] last reviewed 2021. Blood 08/13/2024 5:44 AM HOSPITALIST 08/13/2024 6:05 AM HOSPITALIST us Anastasia Amaro MD LAB BLOOD ORDERABLES Final Result [facility] Department of [facility] [employer] [place], [place] [id number] * (ABNORMAL) Comprehensive metabolic panel (08/13/2024 5:44 AM HOSPITALIST) Sodium 137 135 - 145 mmol/L Potassium, pl 3.7 3.3 - 4.9 mmol/L [facility] Chloride 104 97 - 110 mmol/L [facility] CO2 22 22 - 32 mmol/L [facility] Anion gap 11 2 - 15 mmol/L [facility] BUN 8 6 - 25 mg/dL [facility] Creatinine 0.49(L) 0.60 - 1.10 mg/dL [facility] Glucose 74 70 - 199 mg/dL [facility] Comment: Interpretive Data Fasting glucose [...] 2022. Calcium 9.4 8.5 - 10.3 mg/dL [facility] Bilirubin, total 0.3 0.1 - 1.2 mg/dL [facility] Protein, pl 6.5 6.5 - 8.5 g/dL [facility] Albumin 3.3(L) 3.5 - 5.0 g/dL [facility] Alk phos 85 40 - 130 Units/L [facility] ALT 21 7 - 45 Units/L [facility] AST 19 10 - 45 Units/L [facility] Blood 08/13/2024 5:44 AM HOSPITALIST 08/13/2024 6:05 AM HOSPITALIST us Anastasia Amaro MD LAB BLOOD ORDERABLES Final Result [facility] Department [place] [address] * (ABNORMAL) CBC without differential (08/13/2024 5:44 AM HOSPITALIST) Pathologist [facility] [place] WBC 12.4(H) 3.8 - 9.9 K/cumm Hgb 11.8(L) 11.9 - 15.5 g/dL [facility] Hct 34.4(L) 35.6 - 45.5 % [facility] Plt 295 150 - 400 K/cumm [facility] MPV 10.3 9.1 - 12.3 fL [facility] RBC 3.93 3.90 - 5.20 M/cumm [facility] MCV 87.5 81.3 - 96.4 fL [facility] MCH 30.0 27.1 - 33.3 pg [facility] MCHC 34.3 32.3 - 35.7 g/dL [facility] RDW CV 13.6 11.1 - 14.9 % [facility] RDW SD 43.5 35.7 - 48.1 fL [facility] NRBC abs 0.00 0.00 - 0.01 K/cumm [facility] Blood 08/13/2024 5:44 AM HOSPITALIST 08/13/2024 6:05 AM HOSPITALIST Anastasia Amaro MD LAB BLOOD ORDERABLES Final Result Performing Organization Address City/[facility]/ZIP Co de Phone Number [facility] [email or web address] [address] * (ABNORMAL) Type and screen (08/13/2024 5:44 AM HOSPITALIST) [facility] ABO Rh O Negative Abiodun, indirect Positive(A) [facility] Blood 08/13/2024 5:44 AM HOSPITALIST 08/13/2024 6:19 AM HOSPITALIST Narrative [facility] - 08/13/2024 7:42 AM HOSPITALIST Has the patient had Daratumumab or Isatuximab in the past 6 months?->Unknown Anastasia Amaro MD LAB BLOOD BANK TEST ORDERA BLES Final Result Performing Organization Address City/[facility]/ZIP Co de Phone Number [facility] [place] [address] * RPR Blood (08/13/2024 5:44 AM HOSPITALIST) RPR Nonreactive Nonreactive Blood 08/13/2024 5:44 AM HOSPITALIST 08/13/2024 6:05 AM HOSPITALIST Anastasia Amaro MD LAB MICROBIOLOGY - GENERAL ORDERABLES Final Result Performing Organization Address [facility]/[place] [address] * HIV 1/2 Antibody plus p24 Antigen Blood (08/13/2024 5:44 AM HOSPITALIST) Pathologist [facility] [place] HIV 1/2 ab + p24 ag Nonreactive Nonreactive Comment:Nonreactive for HIV- 1 antigen and HIV-1/HIV-2 antibodies. No laboratory evidence of HIV infection. If acute HIV infection is suspected, consider testing for HIV-1 RNA. Current interpretive data was last revised on 22. Blood 08/13/2024 5:44 AM HOSPITALIST 08/13/2024 6:05 AM HOSPITALIST Anastasia Amaro MD LAB MICROBIOLOGY - GENERAL ORDERABLES Final Result Performing Organization Address [facility]/[place] [address] * GTT 50gm 1hr gestational screen (08/12/2024 11:29 AM HOSPITALIST) GTT 50g gest screen 106 <=140 mg/dL [...] on 2020. Blood 08/12/2024 11:2 9 AM HOSPITALIST 08/12/2024 11:41 AM HOSPITALIST Anastasia Amaro MD LAB BLOOD ORDERABLES Final Result Performing Organization Address [facility]/[place] de Phone Number [facility] [place] [address] * Antibody identification (08/10/2024 7:02 AM HOSPITALIST) [facility] Antibody ID 1 Passive Anti-D Blood 08/10/2024 7:02 AM HOSPITALIST 08/10/2024 7:02 AM HOSPITALIST Anastasia Amaro MD LAB BLOOD BANK TEST ORDERA BLES Final Result Performing Organization Address [facility]/[place] de Phone Number [facility] Department of [employer] [place] [address] * eGFR (08/10/2024 4:49 AM HOSPITALIST) [facility] eGFR >90 >=60 mL/min/1. 73 m2 [...] last reviewed 2021. Blood 08/10/2024 4:49 AM HOSPITALIST 08/10/2024 5:31 AM HOSPITALIST us Anastasia Amaro MD LAB BLOOD ORDERABLES Final Result [facility] Department [place] [address] * (ABNORMAL) Comprehensive metabolic panel (08/10/2024 4:49 AM HOSPITALIST) Sodium 135 135 - 145 mmol/L Potassium, pl 3.5 3.3 - 4.9 mmol/L [facility] Chloride 102 97 - 110 mmol/L [facility] CO2 22 22 - 32 mmol/L [facility] Anion gap 11 2 - 15 mmol/L [facility] BUN 9 6 - 25 mg/dL [facility] Creatinine 0.51(L) 0.60 - 1.10 mg/dL [facility] Glucose 79 70 - 199 mg/dL [facility] Comment: Interpretive Data Fasting glucose [...] Calcium 9.2 8.5 - 10.3 mg/dL [facility] Bilirubin, total 0.2 0.1 - 1.2 mg/dL [facility] Protein, pl 6.6 6.5 - 8.5 g/dL [facility] Albumin 3.2(L) 3.5 - 5.0 g/dL [facility] Alk phos 85 40 - 130 Units/L [facility] ALT 22 7 - 45 Units/L [facility] AST 19 10 - 45 Units/L [facility] Blood 08/10/2024 4:49 AM HOSPITALIST 08/10/2024 5:31 AM HOSPITALIST us Anastasia Amaro MD LAB BLOOD ORDERABLES Final Result [facility] Department [place] [address] * (ABNORMAL) CBC without differential (08/10/2024 4:49 AM HOSPITALIST) [facility] Signature WBC 11.7(H) 3.8 - 9.9 K/cumm Hgb 11.7(L) 11.9 - 15.5 g/dL [facility] Hct 35.0(L) 35.6 - 45.5 % [facility] Plt 293 150 - 400 K/cumm [facility] MPV 10.5 9.1 - 12.3 fL [facility] RBC 4.00 3.90 - 5.20 M/cumm [facility] MCV 87.5 81.3 - 96.4 fL [facility] MCH 29.3 27.1 - 33.3 pg [facility] MCHC 33.4 32.3 - 35.7 g/dL [facility] RDW CV 13.7 11.1 - 14.9 % [facility] RDW SD 43.8 35.7 - 48.1 fL [facility] NRBC abs 0.00 0.00 - 0.01 K/cumm [facility] Blood 08/10/2024 4:49 AM HOSPITALIST 08/10/2024 5:42 AM HOSPITALIST Anastasia Amaro MD LAB BLOOD ORDERABLES Final Result [facility] Department [place] [address] * (ABNORMAL) Type and screen (08/10/2024 4:49 AM HOSPITALIST) Abiodun, indirect Positive(A) ABO Rh O Negative [facility] Blood 08/10/2024 4:49 AM HOSPITALIST 08/10/2024 6:04 AM HOSPITALIST Narrative [facility] - 08/10/2024 7:02 AM HOSPITALIST Has the patient had Daratumumab or Isatuximab in the past 6 months?->Unknown us Anastasia Amaro MD LAB BLOOD BANK TEST ORDERA BLES Final Result [facility] Department [place] [address] * US Ob 14 Weeks Or Over (08/09/2024 9:47 AM HOSPITALIST) Fetus# Fetus1 VIEWPOINT Placenta Details anterior VIEWPOINT Presentation Vertex; Maternal right- low VIEWPOINT Fetus# Fetus2 VIEWPOINT Placenta Details anterior VIEWPOINT Presentation Vertex; Maternal left- high VIEWPOINT Anatomical Region Laterality Modality Abdomen N/A Ultrasound 08/09/2024 9:50 AM HOSPITALIST Impressions 08/09/2024 11:52 AM HOSPITALIST 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 Chorionicity was not fully assessed but was previously determined to be monochorionic by the [facility] MFM practice. Anatomic surveys were also completed [...] waspreviously determined to be monochorionic by the [facility] MFM practice.Anatomic surveys were also completed there. [...] Result * Antibody identification (08/07/2024 6:51 AM HOSPITALIST) Antibody ID 1 Passive Anti-D Blood 08/07/2024 6:5 1 AM HOSPITALIST 08/07/2024 6:51 AM HOSPITALIST us Anastasia Amaro MD LAB BLOOD BANK TEST ORDERA BLES Final Result [facility] Department [place] [address] * eGFR (08/07/2024 5:00 AM HOSPITALIST) Pathologist [facility] [place] eGFR >90 >=60 mL/min/1. 73 m2 Comment: [...] last reviewed 2021. Blood 08/07/2024 5:00 AM HOSPITALIST 08/07/2024 4:56 AM HOSPITALIST us Anastasia Amaro MD LAB BLOOD ORDERABLES Final Result Performing Organization Address City/State/[facility] Co ga Phone Number [facility] Department [place] [address] * (ABNORMAL) Comprehensive metabolic panel (08/07/2024 5:00 AM HOSPITALIST) Pathologist [facility] [place] Sodium 138 135 - 145 mmol/L Potassium, pl 3.6 3.3 - 4.9 mmol/L [facility] Chloride 105 97 - 110 mmol/L [facility] CO2 22 22 - 32 mmol/L [facility] Anion gap 11 2 - 15 mmol/L [facility] BUN 7 6 - 25 mg/dL [facility] Creatinine 0.47(L) 0.60 - 1.10 mg/dL [facility] Glucose 84 70 - 199 mg/dL [facility] Comment: Interpretive Data Fasting glucose [...] 2022. Calcium 9.3 8.5 - 10.3 mg/dL [facility] Bilirubin, total 0.2 0.1 - 1.2 mg/dL [facility] Protein, pl 6.3(L) 6.5 - 8.5 g/dL [facility] Albumin 3.1(L) 3.5 - 5.0 g/dL [facility] Alk phos 80 40 - 130 Units/L [facility] ALT 26 7 - 45 Units/L [facility] AST 16 10 - 45 Units/L [facility] Blood 08/07/2024 5:00 AM HOSPITALIST 08/07/2024 4:56 AM HOSPITALIST us Anastasia Amaro MD LAB BLOOD ORDERABLES Final Result [facility] Department [place] [address] * (ABNORMAL) CBC without differential (08/07/2024 5:00 AM HOSPITALIST) WBC 10.2(H) 3.8 - 9.9 K/cumm Hgb 12.0 11.9 - 15.5 g/dL [facility] Hct 35.0(L) 35.6 - 45.5 % [facility] Plt 261 150 - 400 K/cumm [facility] MPV 10.2 9.1 - 12.3 fL [facility] RBC 4.02 3.90 - 5.20 M/cumm [facility] MCV 87.1 81.3 - 96.4 fL [facility] MCH 29.9 27.1 - 33.3 pg [facility] MCHC 34.3 32.3 - 35.7 g/dL [facility] RDW CV 13.8 11.1 - 14.9 % [facility] RDW SD 44.4 35.7 - 48.1 fL [facility] [facility] NRBC abs 0.00 0.00 - 0.01 K/cumm [facility] Blood 08/07/2024 5:00 AM HOSPITALIST 08/07/2024 4:56 AM HOSPITALIST us Anastasia Amaro MD LAB BLOOD ORDERABLES Final Result Performing Organization Address City/[facility] Co de Phone Number [facility] Department [place] [address] * (ABNORMAL) Type and screen (08/07/2024 4:45 AM HOSPITALIST) Abiodun, indirect Positive(A) ABO Rh O Negative [facility] Blood 08/07/2024 4:45 AM HOSPITALIST 08/07/2024 5:12 AM HOSPITALIST Narrative [facility] - 08/07/2024 6:51 AM HOSPITALIST Has the patient had Daratumumab or Isatuximab in the past 6 months?->Unknown Anastasia Amaro MD LAB BLOOD BANK TEST ORDERA BLES Final Result [facility] Department [place] [address] * CT Chest PE (CTA) W Contrast [...] Nasopharyngeal (08/04/2024 6:28 PM CDT) Pathologist [facility] [place] Influenza A RNA Not Detected Not Detected Influenza B RNA Not Detected Not Detected [facility] RSV RNA Not Detected Not Detected [facility] COVID-19 RNA Not Detected Not Detected [facility] Coronavirus 229E RNA Not Detected Not Detected [facility] Coronavirus HKU1 RNA Not Detected Not Detected [facility] Coronavirus NL63 RNA Not Detected Not Detected [facility] Coronavirus OC43 RNA Not Detected Not Detected [facility] Adenovirus DNA Not Detected Not Detected [facility] Metapneumovirus RNA Not Detected Not Detected [facility] Rhinovirus/Enterov irus RNA Not Detected Not Detected [facility] Parainfluenza 1 RNA Not Detected Not Detected [facility] Parainfluenza 2 RNA Not Detected Not Detected [facility] Parainfluenza 3 RNA Not Detected Not Detected [facility] Parainfluenza 4 RNA Not Detected Not Detected [facility] B. pertussis DNA Not Detected Not Detected [facility] B. parapertussis DNA Not Detected Not Detected [facility] C. pneumoniae DNA Not Detected Not Detected [facility] M. pneumoniae DNA Not Detected Not Detected [facility] Nasopharyngeal 08/04/2024 6 :28 PM CDT 08/04/2024 6:48 PM CDT Narrative [facility] - 08/04/2024 8:16 PM CDT Is the Patient experiencing symptoms consistent with COVID?->No Surveillance testing for transplant patient?->No ??Interpretive Data The [employer] [place] FilmArray Respiratory Panel (RP2.1) assay is a [...] assay has FDA clearance for testing of ENVIRONMENTAL PLANNING ENGINEER swabs. ??The performance of additional specimen types has been assessed by the performing laboratory. ??The performance characteristics of this assay have been determined by [facility] Molecular Infectious Disease Laboratory. Current interpretive data was last revised on 22. us Anastasia Amaro MD LAB MICROBIOLOGY - GENERAL ORDERABLES Final Result Performing Organization Address [facility] Co de Phone Number [facility] [email or web address] [address] * (ABNORMAL) D-dimer, quantitative (08/04/2024 6:28 PM [...] 6:28 PM CDT 08/04/2024 6:55 PM CDT Anastasia Amaro MD LAB BLOOD ORDERABLES Final Result Performing Organization Address [facility] Co de Phone Number [facility] [place] [address] * ECG 12 lead (08/04/2024 5:45 PM CDT) Ventricular Rate EKG/Min 131 BPM [facility] Atrial Rate 131 BPM [facility] IN-Interval (MSEC) 126 ms [facility] QRS-Interval (MSEC) 74 ms [facility] QT-Interval (MSEC) 300 ms [facility] QTc 443 ms [facility] P [place] 53 degrees [facility] R [place] 8 degrees [facility] T [place] 33 degrees [facility] Diagnosis Sinus tachycardia Otherwise normal ECG Confirmed by Kaci Estrella MD ([id number]) on 08/08/2024 3:27:38 AM [facility] 08/04/2024 5:45 PM CDT 08/08/2024 3:27 AM HOSPITALIST us Anastasia Amaro MD ECG ORDERABLES Final Resu lt Performing Organization Address [facility] Co de Phone Number [facility] * ECG 12 lead (08/04/2024 11:54 AM CDT) Ventricular Rate EKG/Min 110 BPM [facility] Atrial Rate 110 BPM [facility] IN-Interval (MSEC) 122 ms [facility] QRS-Interval (MSEC) 78 ms [facility] QT-Interval (MSEC) 334 ms [facility] QTc 452 ms [facility] P [place] 52 degrees [facility] R [place] 5 degrees [facility] T [place] [address] [facility] Diagnosis Sinus tachycardia Otherwise normal ECG No previous ECGs available Confirmed by SAMANTA KAPLAN M.D ([id number]) on 08/04/2024 1:23:30 PM [facility] 08/04/2024 11:5 4 AM CDT 08/04/2024 1:23 PM CDT us Anastasia Amaro MD ECG ORDERABLES Final Resu lt Performing Organization Address [facility]/ZIP Co de Phone Number [facility] * Antibody identification (08/04/2024 6:12 AM CDT) Antibody ID 1 Passive Anti-D Blood 08/04/2024 6:12 AM CDT 08/04/2024 6:12 AM CDT us Anastasia Amaro MD LAB BLOOD BANK TEST ORDERA BLES Final Result Performing Organization Address [facility] Co de Phone Number [facility] Department [place] [address] * eGFR (08/04/2024 4:48 AM CDT) eGFR [...] MD LAB BLOOD ORDERABLES Final Result [facility] Department [place] [address] * (ABNORMAL) Comprehensive metabolic panel (08/04/2024 4:48 AM CDT) Sodium 137 135 - 145 mmol/L Potassium, pl 3.8 3.3 - 4.9 mmol/L [facility] Chloride 104 97 - 110 mmol/L [facility] CO2 22 22 - 32 mmol/L [facility] Anion gap 11 2 - 15 mmol/L [facility] BUN 8 6 - 25 mg/dL [facility] Creatinine 0.44(L) 0.60 - 1.10 mg/dL [facility] Glucose 77 70 - 199 mg/dL [facility] Comment: Interpretive Data Fasting glucose [...] 2022. Calcium 9.2 8.5 - 10.3 mg/dL [facility] Bilirubin, total 0.3 0.1 - 1.2 mg/dL [facility] Protein, pl 6.6 6.5 - 8.5 g/dL [facility] Albumin 3.3(L) 3.5 - 5.0 g/dL [facility] Alk phos 82 40 - 130 Units/L [facility] ALT 23 7 - 45 Units/L [facility] AST 25 10 - 45 Units/L [facility] Blood 08/04/2024 4:48 AM CDT 08/04/2024 5:02 AM CDT us Anastasia Amaro MD LAB BLOOD ORDERABLES Final Result [facility] Department [place] [address] * (ABNORMAL) CBC without differential (08/04/2024 4:48 AM CDT) WBC 12.6(H) 3.8 - 9.9 K/cumm Hgb 12.4 11.9 - 15.5 g/dL [facility] Hct 36.5 35.6 - 45.5 % [facility] Plt 278 150 - 400 K/cumm [facility] MPV 10.2 9.1 - 12.3 fL [facility] RBC 4.17 3.90 - 5.20 M/cumm [facility] MCV 87.5 81.3 - 96.4 fL [facility] MCH 29.7 27.1 - 33.3 pg [facility] MCHC 34.0 32.3 - 35.7 g/dL [facility] RDW CV 14.1 11.1 - 14.9 % [facility] RDW SD 45.0 35.7 - 48.1 fL [facility] NRBC abs 0.00 0.00 - 0.01 K/cumm [facility] Blood 08/04/2024 4:48 AM CDT 08/04/2024 5:02 AM CDT Anastasia Amaro MD LAB BLOOD ORDERABLES Final Result [facility] Department [place] [address] * (ABNORMAL) Type and screen (08/04/2024 4:48 AM CDT) ABO Rh O Negative Abiodun, indirect Positive(A) [facility] Blood 08/04/2024 4:48 AM CDT 08/04/2024 4:59 AM CDT Narrative [facility] - 08/04/2024 6:12 AM CDT Has the patient had Daratumumab or Isatuximab in the past 6 months?->Unknown us Anastasia Amaro MD LAB BLOOD BANK TEST ORDERA BLES Final Result [facility] Department [place] [address] * Cardiolipin antibody, IgG and IgM (08/04/2024 [...] [place]. These results were obtained with the Kapture 2200 System. Cardiolipin IgG values obtained with [...] antibodies. ??These results were obtained with the Kapture 2200 System. Cardiolipin IgM values obtained with different manufacturers' assay methods may not be used interchangeably. Current interpretive data was last revised on 2017. Blood 08/04/2024 4:48 AM CDT 08/04/2024 5:02 AM CDT us Anastasia Amaro MD LAB BLOOD ORDERABLES Final Result Performing Organization Address City/State/[facility] Co de Phone Number [facility] Department [place] [address] * Beta 2 glycoprotein IgM Ab (08/04/2024 4:48 AM CDT) [facility] Beta-2 glycoprotein I, IgM 0.6 <=19.9 [...] factor. ??These results were obtained with the [employer] BioPlex 2200 System. Beta-2 GP1 IgM values obtained with different manufacturers' assay methods may not be used interchangeably. Current interpretive data was last revised on 2017. Blood 08/04/2024 4:48 AM CDT 08/04/2024 5:02 AM CDT Anastasia Amaro MD LAB BLOOD ORDERABLES Final Result Performing Organization Address [facility] Co de Phone Number [facility] [place] [address] * Beta 2 glycoprotein IgG Ab (08/04/2024 4:48 AM CDT) Beta-2 glycoprotein I, IgG <1.4 <=19.9 units/mL Comment: Interpretive Data Negative: <20 U/mL Positive: > or = 20 U/mL ? Beta-2 glycoprotein 1 (Beta-2 GP1) antibodies are a more specific marker of thrombotic risk. It is expected that some samples will be ACL positive and Beta- 2 [id number]. In order to improve specificity, the International Congress on Antiphospholipid Antibodies recommends Beta-2 GP1 antibodies of IgG or IgM isotype ??(> the 99th percentile), obtained twice, at least 12 weeks apart, to support a diagnosis of antiphospholipid syndrome. The cutoff for this assay was developed from data based on the 99th percentile. These results were obtained with the Kapture 2200 System. Beta 2GP1 IgG values obtained with different manufacturers' assay methods may not be used interchangeably. Current interpretive data was last revised on 2017. Blood 08/04/2024 4:48 AM CDT 08/04/2024 5:02 AM CDT Anastasia Amaro MD LAB BLOOD ORDERABLES Final Result Performing Organization Address [facility] Co de Phone Number [facility] [place] [address] * Lupus Anticoagulant Panel plus Reflexes (08/04/2024 4:48 AM CDT) PT 11.6 9.7 - 13.0 sec INR 1.07 0.90 - 1.20 [facility] Comment: Interpretive data Oral anticoagulant therapeutic ranges: Venous thromboembolism prophylaxis or treatment: 2.0-3.0 CARDIOLOGY Standard range: 2.0-3.0 High-intensity range: 2.5-3.5 Refer to indication-specific guidelines for appropriate target ranges for prosthetic heart valve replacement. Current interpretive data was last revised on 2019. aPTT 29 28 - 38 sec [facility] Comment: Interpretive Data Heparin therapeutic range: 66.0 - 100.0 seconds. Range based on correlation with therapeutic heparin activity range of 0.3 - 0.7 Units/mL. Current interpretive data was last revised on 2023. DRVVT screen ratio 1.13 0.00 - 1.20 Ratio [facility] SCT Screen Ratio 1.01 0.00 - 1.16 Ratio [facility] Lupus anticoagulant, interp Negative [facility] Comment: Interpretive data ?? Lupus anticoagulants (LA) [...] ?? References: 1) Neilo V, Herlinda A, Foley JH, Orarelyl TL, China M, De Americo PG. Update of the guidelines for lupus anticoagulant detection. J Thromb Haemost. 2009; 7:7544-5828. 2. Andrew S. et al. International consensus statement on an update of the classification criteria for definite antiphospholipid syndrome (APS). J Thromb Haemost. 2006; 4:295-306. Current interpretive data was last revised on 2018 Blood 08/04/2024 4:48 AM CDT 08/04/2024 5:21 AM CDT us Anastasia Amaro MD LAB BLOOD ORDERABLES Final Result [facility] Department [place] [address] * Echocardiogram (08/03/2024 4:07 PM CDT) Anatomical Region Laterality Modality Ultrasound 08/03/2024 1:22 PM CDT Narrative 08/03/2024 5:10 PM CDT ?[facility] Heart Station ? Echo Report ?[facility] [address], [place] ??[address] ?[phone] ? Patient Name: SUKI LEON ? Study Type: Echo ? Patient : 1995 ? Exam Date: ??08/03/2024 ? Age: ?29Y ? Exam Time: ??1:22:00 PM ? Referring MD: SIM HUSAIN ? Height: ? 65in ? Weight: ? 284lb ? BSA: ?2.3 m2 ? Sex: FEMALE ? BP: ? 139/83 ? Spinning Frame Fixer: May Quick ? Pat. Stat.: Inpatient ?Room: 6800 ? Account:[id number] ? Indications for Study:MONO-DI TWINS Procedures: COLORFLOW, [...] Normal. Septum: PFO. Defect sz. Moderate ??Shunt: [id number] ?? Annular Dimensions: ??Ao Valve: 0.52 cm [...] Procedure Note Macie Vickers MD - 08/03/2024 [facility] Echo Report [address] [address] Patient Name: SUKI LEON Study Type: Echo Patient : 1995 Exam Date: 08/03/2024 Age: 29Y Exam Time: 1:22:00 PM Referring MD: SIM HUSAIN Height: 65in Weight: 284lb BSA: 2.3 m2 Sex: FEMALE BP: 139/83 Spinning Frame Fixer: May Hoskins. Stat.: Inpatient Room: [facility] Account:[id number] Indications for Study:MONO-DI TWINS Procedures: COLORFLOW, DOPPLER [...] Normal. Septum: PFO. Defect sz. Moderate Shunt: [id number] Annular Dimensions: Ao Valve: 0.52 cm (+0.79) [...] AM CDT Narrative 08/03/2024 4:30 PM CDT ?[facility] Report ?[address], [place], [place] ??[address] ?[phone] ? Patient Name: SUKI LEON ? Study Type: Echo ? Patient : 1995 ? Exam Date: ??08/03/2024 ? Age: ?29Y ? Exam Time: ??11:38:00 AM ? Referring MD: SIM HUSAIN ? Height: ? 65in ? Weight: ? 284lb ? BSA: ?2.3 m2 ? Sex: FEMALE ? BP: ? 139/83 ? Spinning Frame Fixer: May Quick ? Pat. Stat.: Inpatient ?Room: 6800 ? Account:[id number] ? Indications for Study:AORTIC ECTASIA. 747.29, MONO-DI [...] Normal. Septum: PFO. Defect sz. Moderate ??Shunt: [id number] ?? Ventricles: D-looped ??LV size: Normal. LV [...] Procedure Note Macie Vickers MD - 08/03/2024 [facility] Station Echo Report [facility] [address], [place] [address] Patient Name: SUKI LEON Study Type: Echo Patient : 1995 Exam Date: 08/03/2024 Age: 29Y Exam Time: 11:38:00 AM Referring MD: SIM HUSAIN Height: 65in Weight: 284lb BSA: 2.3 m2 Sex: FEMALE BP: 139/83 Spinning Frame Fixer: May Hoskins. Stat.: Inpatient Room: [facility] Account:[id number] Indications for Study:AORTIC ECTASIA. 747.29, MONO-DI TWINS [...] Normal. Septum: PFO. Defect sz. Moderate Shunt: Qswuw-bb-[id number] Ventricles: D-looped LV size: Normal. LV function:Normal. [...] [facility] Anatomic surveys were also completed there. [...] was previously determined to [facility] Anatomic surveys were alsocompleted there. A [...] CDT 08/01/2024 4:24 PM CDT Narrative [facility] - 08/04/2024 11:19 AM CDT Testing performed by [facility] Microbiology Laboratory ([phone]). us Millicent Duran NP LAB MICROBIOLOGY - GENERAL ORDERABLES Final Result [facility] Department [place] [address] * eGFR (08/01/2024 4:33 AM CDT) eGFR [...] Amaro MD LAB BLOOD ORDERABLES Final Result [facility] Department [place] [address] * (ABNORMAL) Comprehensive metabolic panel (08/01/2024 4:33 AM CDT) Sodium 140 135 - 145 mmol/L Potassium, pl 3.8 3.3 - 4.9 mmol/L [facility] Chloride 106 97 - 110 mmol/L [facility] CO2 23 22 - 32 mmol/L [facility] Anion gap 11 2 - 15 mmol/L [facility] BUN 7 6 - 25 mg/dL [facility] Creatinine 0.46(L) 0.60 - 1.10 mg/dL [facility] Glucose 75 70 - 199 mg/dL [facility] Comment: Interpretive Data Fasting glucose [...] 2022. Calcium 9.2 8.5 - 10.3 mg/dL [facility] Bilirubin, total 0.2 0.1 - 1.2 mg/dL [facility] Protein, pl 6.1(L) 6.5 - 8.5 g/dL [facility] Albumin 3.1(L) 3.5 - 5.0 g/dL [facility] Alk phos 69 40 - 130 Units/L [facility] ALT 30 7 - 45 Units/L [facility] AST 28 10 - 45 Units/L [facility] Blood 08/01/2024 4:33 AM CDT 08/01/2024 4:48 AM CDT us Anastasia Amaro MD LAB BLOOD ORDERABLES Final Result [facility] Department [place] [address] * (ABNORMAL) CBC without differential (08/01/2024 4:33 AM CDT) WBC 10.6(H) 3.8 - 9.9 K/cumm Hgb 11.7(L) 11.9 - 15.5 g/dL [facility] Hct 35.1(L) 35.6 - 45.5 % [facility] Plt 269 150 - 400 K/cumm [facility] MPV 9.9 9.1 - 12.3 fL [facility] RBC 3.96 3.90 - 5.20 M/cumm [facility] MCV 88.6 81.3 - 96.4 fL [facility] MCH 29.5 27.1 - 33.3 pg [facility] MCHC 33.3 32.3 - 35.7 g/dL [facility] RDW CV 14.3 11.1 - 14.9 % [facility] RDW SD 46.5 35.7 - 48.1 fL [facility] NRBC abs 0.00 0.00 - 0.01 K/cumm [facility] Blood 08/01/2024 4:33 AM CDT 08/01/2024 4:48 AM CDT Anastasia Amaro MD LAB BLOOD ORDERABLES Final Result Performing Organization Address City/[facility] Co de Phone Number [facility] [employer] [address] * Type and screen (08/01/2024 4:33 AM CDT) Abiodun, indirect Negative ABO Rh O Negative [facility] Blood 08/01/2024 4:33 AM CDT 08/01/2024 5:12 AM CDT Narrative [facility] - 08/01/2024 6:16 AM CDT Has the patient had Daratumumab or Isatuximab in the past 6 months?->Unknown Anastasia Amaro MD LAB BLOOD BANK TEST ORDERA BLES Final Result [facility] [employer] [place] [address] * (ABNORMAL) CBC without differential (07/31/2024 5:09 AM CDT) WBC 11.0(H) 3.8 - 9.9 K/cumm Hgb 10.8(L) 11.9 - 15.5 g/dL [facility] Hct 33.1(L) 35.6 - 45.5 % [facility] Plt 257 150 - 400 K/cumm [facility] MPV 10.3 9.1 - 12.3 fL [facility] RBC 3.71(L) 3.90 - 5.20 M/cumm [facility] MCV 89.2 81.3 - 96.4 fL [facility] MCH 29.1 27.1 - 33.3 pg [facility] MCHC 32.6 32.3 - 35.7 g/dL [facility] RDW CV 14.3 11.1 - 14.9 % [facility] RDW SD 46.8 35.7 - 48.1 fL [facility] NRBC abs 0.02(H) 0.00 - 0.01 K/cumm [facility] Blood 07/31/2024 5:09 AM CDT 07/31/2024 5:27 AM CDT Anastasia Amaro MD LAB BLOOD ORDERABLES Final Result Performing Organization Address City/[facility]/ZIP Co de Phone Number [facility] Department of [place] [address] * Magnesium (07/31/2024 5:07 AM CDT) [facility] Magnesium 1.9 1.4 - 2.5 mg/dL Blood 07/31/2024 5:07 AM CDT 07/31/2024 5:26 AM CDT Anastasia Amaro MD LAB BLOOD ORDERABLES Final Result Performing Organization Address City/[facility]/ZIP Co de Phone Number [facility] [place] [address] * eGFR (07/30/2024 4:49 AM CDT) [facility] eGFR >90 >=60 mL/min/1. 73 m2 [...] BLOOD ORDERABLES Final Result Performing Organization Address City/State/[facility] Co de Phone Number [facility] Department [place] [address] * (ABNORMAL) Comprehensive metabolic panel (07/30/2024 4:49 AM CDT) Sodium 140 135 - 145 mmol/L Potassium, pl 3.9 3.3 - 4.9 mmol/L [facility] Chloride 108 97 - 110 mmol/L [facility] CO2 22 22 - 32 mmol/L [facility] Anion gap 10 2 - 15 mmol/L [facility] BUN 5(L) 6 - 25 mg/dL [facility] Creatinine 0.46(L) 0.60 - 1.10 mg/dL [facility] Glucose 100 70 - 199 mg/dL [facility] Comment: Interpretive Data Fasting glucose [...] 2022. Calcium 8.6 8.5 - 10.3 mg/dL [facility] Bilirubin, total 0.3 0.1 - 1.2 mg/dL [facility] Protein, pl 6.2(L) 6.5 - 8.5 g/dL [facility] Albumin 3.2(L) 3.5 - 5.0 g/dL [facility] Alk phos 70 40 - 130 Units/L [facility] ALT 22 7 - 45 Units/L [facility] AST 23 10 - 45 Units/L [facility] Blood 07/30/2024 4:49 AM CDT 07/30/2024 5:02 AM CDT Anastasia Amaro MD LAB BLOOD ORDERABLES Final Result [facility] Department [place] [address] * (ABNORMAL) CBC without differential (07/30/2024 4:49 AM CDT) WBC 10.2(H) 3.8 - 9.9 K/cumm Hgb 10.9(L) 11.9 - 15.5 g/dL [facility] Hct 32.5(L) 35.6 - 45.5 % [facility] Plt 262 150 - 400 K/cumm [facility] MPV 10.0 9.1 - 12.3 fL [facility] RBC 3.65(L) 3.90 - 5.20 M/cumm [facility] MCV 89.0 81.3 - 96.4 fL [facility] MCH 29.9 27.1 - 33.3 pg [facility] MCHC 33.5 32.3 - 35.7 g/dL [facility] RDW CV 14.4 11.1 - 14.9 % [facility] RDW SD 46.5 35.7 - 48.1 fL [facility] NRBC abs 0.00 0.00 - 0.01 K/cumm [facility] Blood 07/30/2024 4:49 AM CDT 07/30/2024 5:02 AM CDT Anastasia Amaro MD LAB BLOOD ORDERABLES Final Result Performing Organization Address City/[facility] Co de Phone Number [facility] [place] [address] * Magnesium (07/30/2024 4:49 AM CDT) Magnesium 2.3 1.4 - 2.5 mg/dL Blood 07/30/2024 4:49 AM CDT 07/30/2024 5:02 AM CDT Anastasia Amaro MD LAB BLOOD ORDERABLES Final Result Performing Organization Address City/[facility] Co de Phone Number [facility] Department [place] [address] * Check Sample (07/29/2024 6:47 AM CDT) ABO Rh O Negative [facility] OTHER 07/29/2024 6:47 AM CDT 07/29/2024 7:10 AM CDT Anastasia Amaro MD LAB BLOOD ORDERABLES Final Result Performing Organization Address City/[facility] Co de Phone Number [facility] Department [place] [address] [facility] * eGFR (07/29/2024 5:43 AM CDT) eGFR [...] Amaro MD LAB BLOOD ORDERABLES Final Result [facility] Department of Laboratories [place], [place] [address] * (ABNORMAL) Magnesium (07/29/2024 5:43 AM CDT) Magnesium 3.7(H) 1.4 - 2.5 mg/dL Blood 07/29/2024 5:43 AM CDT 07/29/2024 6:36 AM CDT Anastasia Amaro MD LAB BLOOD ORDERABLES Final Result Performing Organization Address [facility] de Phone Number [facility] [place] [address] * RPR Blood (07/29/2024 5:43 AM CDT) Pathologist [facility] [place] RPR Nonreactive Nonreactive Blood 07/29/2024 5:43 AM CDT 07/29/2024 6:36 AM CDT Anastasia Amaro MD LAB MICROBIOLOGY - GENERAL ORDERABLES Final Result Performing Organization Address [facility] de Phone Number [facility] [place] [address] * HIV 1/2 Antibody plus p24 Antigen Blood (07/29/2024 5:43 AM CDT) [facility] HIV 1/2 ab + p24 ag Nonreactive Nonreactive Comment:Nonreactive for HIV- 1 antigen and HIV-1/HIV-2 antibodies. No laboratory evidence of HIV infection. If acute HIV infection is suspected, consider testing for HIV-1 RNA. Current interpretive data was last revised on 22. Blood 07/29/2024 5:43 AM CDT 07/29/2024 6:36 AM CDT Anastasia Amaro MD LAB MICROBIOLOGY - GENERAL ORDERABLES Final Result Performing Organization Address [facility] Co de Phone Number [facility] [place] [address] * Protein / creatinine ratio, urine, random (07/29/2024 5:43 AM CDT) [facility] Protein, ur, quant 8.4 mg/dL Comment: Interpretive Data No reference range established. Current interpretive data was last revised 2019. Creatinine Ur 82.2 mg/dL [facility] Comment: Interpretive Data No reference range established. Current interpretive data was last revised 2019. Protein/creatinin e ratio 102.2 0.0 - 180.0 mg/g CR [facility] Urine 07/29/2024 5:43 AM CDT 07/29/2024 9:30 AM CDT Anastasia Amaro MD LAB URINE ORDERABLES Final Result [facility] Department [place] [address] * (ABNORMAL) Comprehensive metabolic panel (07/29/2024 5:43 AM CDT) Sodium 140 135 - 145 mmol/L Potassium, pl 3.4 3.3 - 4.9 mmol/L [facility] Chloride 103 97 - 110 mmol/L [facility] CO2 22 22 - 32 mmol/L [facility] Anion gap 15 2 - 15 mmol/L [facility] BUN 5(L) 6 - 25 mg/dL [facility] Creatinine 0.51(L) 0.60 - 1.10 mg/dL [facility] Glucose 92 70 - 199 mg/dL [facility] Comment: Interpretive Data Fasting glucose [...] 2022. Calcium 8.5 8.5 - 10.3 mg/dL [facility] Bilirubin, total 0.6 0.1 - 1.2 mg/dL [facility] Protein, pl 6.5 6.5 - 8.5 g/dL [facility] Albumin 3.7 3.5 - 5.0 g/dL [facility] Alk phos 74 40 - 130 Units/L [facility] ALT 20 7 - 45 Units/L [facility] AST 25 10 - 45 Units/L [facility] Blood 07/29/2024 5:43 AM CDT 07/29/2024 6:36 AM CDT Anastasia Amaro MD LAB BLOOD ORDERABLES Final Result Performing Organization Address City/[facility] Co de Phone Number [facility] Department [place] [address] * Type and screen (07/29/2024 5:43 AM CDT) [facility] Abiodun, indirect Negative ABO Rh O Negative [facility] Blood 07/29/2024 5:43 AM CDT 07/29/2024 6:37 AM CDT Narrative [facility] - 07/29/2024 7:26 AM CDT Has the patient had Daratumumab or Isatuximab in the past 6 months?->Unknown us Anastasia Amaro MD LAB BLOOD BANK TEST ORDERA BLES Final Result Performing Organization Address [facility] Co de Phone Number [facility] Department [place] [address] * (ABNORMAL) CBC without differential (07/29/2024 5:43 AM CDT) [facility] WBC 9.6 3.8 - 9.9 K/cumm Hgb 11.2(L) 11.9 - 15.5 g/dL [facility] Hct 33.5(L) 35.6 - 45.5 % [facility] Plt 291 150 - 400 K/cumm [facility] MPV 10.4 9.1 - 12.3 fL [facility] RBC 3.83(L) 3.90 - 5.20 M/cumm [facility] MCV 87.5 81.3 - 96.4 fL [facility] MCH 29.2 27.1 - 33.3 pg [facility] MCHC 33.4 32.3 - 35.7 g/dL [facility] RDW CV 14.2 11.1 - 14.9 % [facility] RDW SD 45.5 35.7 - 48.1 fL [facility] NRBC abs 0.00 0.00 - 0.01 K/cumm [facility] Blood 07/29/2024 5:43 AM CDT 07/29/2024 6:35 AM CDT us Anastasia Amaro MD LAB BLOOD ORDERABLES Final Result [facility] Department [place] [address] documented in this encounter Visit Diagnoses Not on filedocumented in this encounter Admitting Diagnoses Diagnosis Preeclampsia, [...] covering., Indications: PainIndications:Pain Given 09/22/2024 8:33 AM HOSPITALIST 1,000 mg Given 09/22/2024 12:53 AM HOSPITALIST 1,000 mg Given 09/21/2024 6:08 PM HOSPITALIST 1,000 mg calcium carbonate (TUMS) chewable tablet 500 mg 500 mg, oral, 4 times daily PRN, heartburn, Starting on Thu09/19/24 at 1634, Indications: DyspepsiaIndications:Dyspepsia Given 09/20/2024 8:[address] 500 mg calcium gluconate 100 mg/mL (10%) injection 1 g 1 g, intravenous, Administer over 3 Minutes, Once as needed, magnesium toxicity, Starting on Thu09/19/24 at 1311, For 1 dose, Administer over 3 minutes for magnesium toxicity which may include respiratory rate 12 or less/minute, decreased level of consciousness, absence of reflexes. Notify ., Indications: hypermagnesemiaIndications:hypermagnesemia cyclobenzaprine (FLEXERIL) tablet 5 mg 5 mg, oral, 2 times daily PRN, muscle spasms, Starting on Thu09/21/24 at 0847 Given 09/22/2024 8:33 AM HOSPITALIST 5 mg Given 09/21/2024 9:55 PM HOSPITALIST 5 mg Given 09/21/2024 9:05 AM HOSPITALIST 5 mg enoxaparin (LOVENOX) syringe 40 mg 40 mg, subcutaneous, Every 12 hours scheduled, First dose on Thu09/20/24 at 2100, Indications: Deep Vein Thrombosis PreventionIndications:Deep Vein Thrombosis Prevention Given 09/22/2024 8:35 AM HOSPITALIST 40 mg Left Upper Arm Given 09/21/2024 9:55 PM HOSPITALIST 40 mg Ri ght Upper Arm Given 09/21/2024 8:31 AM HOSPITALIST 40 mg Ri ght Upper Arm ferrous sulfate tablet 325 mg 325 mg (65 mg of elemental iron), oral, Daily with breakfast, First dose on Thu09/20/24 at 0800, Indications: Iron Deficiency AnemiaIndications:Iron Deficiency Anemia Given 09/22/2024 8:33 AM HOSPITALIST 325 mg Given 09/21/2024 8:31 AM HOSPITALIST 325 mg Given 09/20/2024 8:50 AM HOSPITALIST 325 mg fluticasone propionate (FLONASE) 50 mcg/actuation nasal spray 1 spray 1 spray, each nostril, Daily, First dose on Thu08/19/24 at 1615 Given 09/22/2024 8:33 AM HOSPITALIST 1 spray Given 09/20/2024 5:19 PM HOSPITALIST 1 spray Given 09/17/2024 10:16 AM HOSPITALIST 1 spray labetaloL (NORMODYNE,TRANDATE) tablet 300 mg 300 mg, oral, 3 times daily, First dose on Thu09/19/24 at 1400 Given 09/22/2024 8:35 AM HOSPITALIST 300 mg Given 09/21/2024 9:55 PM HOSPITALIST 300 mg Given 09/21/2024 4:15 PM HOSPITALIST 300 mg lidocaine (LIDODERM) 5 % patch 2 patch 2 patch, transdermal, Administer over 12 Hours, Every 24 hours, First dose on Thu09/21/24 at 0930, Do not cover the holes on the top side of the patch., Apply to affected area: abdomen Medication Applied 09/22/2024 8:33 AM HOSPITALIST 2 patches Other (Comment) Medication Applied 09/21/2024 9:06 AM HOSPITALIST 2 patches Other (Comment) magnesium sulfate 20 g/500 mL in water infusion (premix) 2 g/hr (50 mL/hr), intravenous, Continuous, Starting on Thu09/19/24 at 1345, Suspected magnesium toxicity - Stop if maternal respiratory rate less than 12 breaths/minute, apply oximeter and administer O2 at 8-12 LPM per tight face mask to maintain SaO2 95% or more and notify MD., Indications: Pre-EclampsiaIndications:Pre-Eclamps ia New Bag 09/20/2024 8:49 AM HOSPITALIST 2 g/hr 50 mL/hr Rate/Dose Verify 09/20/2024 6:25 AM HOSPITALIST 2 g/hr 50 mL/h r Rate/Dose Verify 09/20/2024 4:25 AM HOSPITALIST 2 g/hr 50 mL/h r metroNIDAZOLE (FLAGYL) tablet 500 mg 500 mg, oral, Every 8 hours, First dose on Thu09/19/24 at 1645, Indications: Prophylaxis, SurgicalIndications:Prophylaxis, Surgical Given 09/22/2024 8:34 AM HOSPITALIST 500 mg Given 09/22/2024 12:53 AM HOSPITALIST 500 mg Given 09/21/2024 4:15 PM HOSPITALIST 500 mg NIFEdipine (PROCARDIA XL/ADALAT CC) extended release tablet 120 mg 120 mg, oral, Daily, First dose on Thu09/03/24 at 0900, Do not crush, chew, cut, dissolve, open or otherwise manipulate tablet/capsule. Given 09/22/2024 8:35 AM HOSPITALIST 120 mg Given 09/21/2024 8:32 AM HOSPITALIST 120 mg Given 09/20/2024 8:50 AM HOSPITALIST 120 mg ondansetron (ZOFRAN) injection 4 mg 4 [...] covering., Indications: PainIndications:Pain Given 09/22/2024 9:58 AM HOSPITALIST 5 mg Given 09/22/2024 6:12 AM HOSPITALIST 5 mg Given 09/22/2024 12:53 AM HOSPITALIST 5 mg PNV with avsvupj-ayac-LZ tablet 1 tablet 1 tablet, oral, Daily, First dose on Thu09/19/24 at 1715, Begin when normal bowel activity resumes., Indications: Vitamin Deficiency PreventionIndications:Vitamin Deficiency Prevention Given 09/22/2024 8:33 AM HOSPITALIST 1 tablet Given 09/21/2024 8:31 AM HOSPITALIST 1 tablet Given 09/20/2024 8:50 AM HOSPITALIST 1 tablet senna-docusate (PERICOLACE) 8.6-50 mg per tablet 1 tablet 1 tablet, oral, 2 times daily, First dose on Thu09/19/24 at 2100, Hold if diarrhea., Indications: constipationIndications:constipation Given 09/21/2024 8:31 AM HOSPITALIST 1 table t Given 09/20/2024 8:33 PM HOSPITALIST 1 tablet Given 09/20/2024 8:50 AM HOSPITALIST 1 tablet simethicone (MYLICON) chewable tablet 160 mg 160 mg, oral, 4 times daily PRN (after meals, bedtime), flatulence, Starting on Thu09/20/24 at 2025 Given 09/20/2024 9:38 PM HOSPITALIST 160 mg sodium chloride 0.9% flush 0.5-20 mL 0.5-20 mL, intra-catheter, Every 8 hours scheduled (alternate), First dose on Thu09/19/24 at 1715, Flush volume based on line type and size. Given 09/21/2024 8:34 AM HOSPITALIST 10 mL Given 09/20/2024 11:46 PM HOSPITALIST 10 mL Given 09/20/2024 4:00 PM HOSPITALIST 5 mL sodium chloride 0.9% irrigation As needed, Starting on Thu09/19/24 at 1416, Intra-Op Given 09/19/2024 2:16 PM HOSPITALIST 2,000 mL sterile water irrigation As needed, Starting on Thu09/19/24 at 1416, Intra-Op Given 09/19/2024 2:16 PM HOSPITALIST 1,000 mL documented in this encounter Discontinued Medications Medication [...] Recently Administered Medications Times are shown in HOSPITALIST. Scheduled Medication Order 09/20/2024 09/21/2024 09/22/2024 acetaminophen [...] Arianne Lee RN)2033 (Given - Provider: Soumya Teixeira RN) 0832 (Given - Provider: Nancy Crooks RN)1615 [...] RN) 0053 (Given - Provider: Soumya Teixeira RN)0834 (Given - Provider: Nancy Crooks RN) NIFEdipine (PROCARDIA XL/ADALAT CC) extended release tablet 120 mg 120 mg, oral, Daily, First dose on Thu09/03/24 at 0900, Do not crush, chew, cut, dissolve, open or otherwise manipulate tablet/capsule. 0850 (Given - Provider: Arianne Lee RN) 0832 (Given - Provider: Nancy Crooks RN) 0835 (Given - Provider: Nancy Crooks RN) PNV with emgmndh-payf-PQ tablet 1 tablet 1 tablet, oral, Daily, [...] KRYSTEN) 0831 (Given - Provider: Nancy Crooks RN)2154 (Not Given - Provider: Soumya Teixeira RN - Reason: Patient/family refused) 0833 (Not Given - Provider: Nancy Crooks RN - Reason: Patient/family refused) sodium chloride 0.9% flush 0.5-20 mL 0.5-20 mL, intra-catheter, Every 8 hours scheduled (alternate), First dose on Thu09/19/24 at 1715, Flush volume based on line type and size. 0000 (Due)0851 (Given - Provider: Arianne Lee RN)1600 (Given - Provider: Arianne Lee RN)2346 (Given - Provider: Soumya Teixeira RN) 0834 (Given - Provider: Nancy Crooks RN)1507 [...] Arianne Lee RN)2345 (Given - Provider: Soumya Teixeira RN) 0605 (Given - Provider: Soumya Teixeira RN)1212 [...] RN - Reason: Order parameters not met) fmqacql-yfxmt-ppqmcyi (MMR) 1,000-12,500 TCID50/0.5 mL live vaccine 0.5 mL 0.5 mL, subcutaneous, During hospitalization, immunization, Starting on Thu09/19/24 at 1634, For 1 dose, If not rubella immune. Warning: This is a live or live attenuated vaccine. Refrigerate. Two-component vaccine. Must be reconstituted with diluent provided. Document the NDC, Lot number, expiration date from the DRY POWDER vial component at administration., Indications: Pofpfkn-Kucmm-Tyqaksd Vaccination ondansetron (ZOFRAN) injection 4 mg(Linked Group [...] Provider: Soumya Teixeira RN)0500 (Given - Provider: Soumya Teixeira RN)0834 (Given - Provider: Nancy Crooks RN)1212 (Given - Provider: Nancy Crooks RN)1615 (Given - Provider: Nancy Crooks RN)2054 (Given - Provider: Polly Olivarez RN) 005 (Given - Provider: Soumya Teixeira, KRYSTEN)0612 (Given - Provider: Soumya Teixeira, KRYSTEN)0958 (Given - Provider: Nancy Crooks RN) simethicone (MYLICON) chewable tablet 160 mg 160 mg, oral, 4 times daily PRN (after meals, bedtime), flatulence, Starting on Thu09/20/24 at 2025 2138 (Given - Provider: Soumya Teixeira, KRYSTEN) sodium [...] Count Last Ordered Date First Ordered Date cyclobenzaprine (FLEXERIL) tablet 5 mg 1 lidocaine (LIDODERM) 5 % patch 2 patch 1 etonogestreL (NEXPLANON) implant 68 mg 1 ferrous sulfate tablet 325 mg 1 09/20/2024 lidocaine (PF) (XYLOCAINE) 1 0 mg/mL (1 %) preservative free injection 50 mg 1 09/20/2024 Rho(D) immune globulin (Hype rRHO S/D, RhoGAM) injection 300 mcg 2 09/20/2024 08/01/2024 simethicone (MYLICON) chewab le tablet 160 mg 1 09/20/2024 acetaminophen (TYLENOL) tablet 1,000 mg 3 1 11/20/2023 08/30/2024 calcium carbonate (TUMS) rossana wable tablet 500 mg 1 09/19/2024 calcium gluconate 100 mg/mL (10%) injection 1 g 2 09/19/2024 07/29/2024 ceFAZolin (ANCEF) 3,000 mg/3 0 mL in sterile water (premix) 3,000 mg 1 09/19/2024 cephalexin (KEFLEX) capsule 500 mg 1 2023 enoxaparin (LOVENOX) syringe 40 mg 2 202308/16/2024 HYDROmorphone (DILAUDID) injection 0.2 mg 1 09/19/2024 ibuprofen (ADVIL,MOTRIN) tablet 600 mg 1 labetaloL (NORMODYNE,TRANDAT E) tablet 300 mg 2 09/19/2024 09/14/2024 magnesium sulfate 20 g/500 m L in water infusion (premix) 2 09/19/2024 07/29/2024 magnesium sulfate bolus from bag 6 g 1 09/04 dhmsrac-rbnrj-dwbizkg (MMR) 1,000-12,500 TCID50/0.5 mL live vaccine 0.5 mL 1 09/19/2024 metroNIDAZOLE (FLAGYL) tablet 500 mg 1 09/04 naloxone (NARCAN) 0.4 mg/mL injection 0.04-0.4 mg 1 09/19/2024 ondansetron (ZOFRAN) injection 4 mg 2 09/19 ondansetron ODT (ZOFRAN-ODT) disintegrating tablet 4 mg 1 09/19/2024 oxyCODONE (ROXICODONE) tablet 5 mg 2 2023 PNV with acnqgqr-krik-UG tablet 1 tablet 2 09/19/2024 07/29/2024 polyethylene glycol (MIRALAX) packet 17 g 3 09/19/2024 07/31/2024 senna-docusate (PERICOLACE) 8.6-50 mg per tablet 1 tablet 2 09/19/2024 08/30/2024 sodium chloride 0.9% bolus 1,000 mL 1 09/19 sodium chloride 0.9% flush 0.5-20 mL 6 09/0407/29/2024 sodium chloride 0.9% infusion 1 09/19/2024 diphenhydrAMINE (BENADRYL) tab/cap 25 mg 5 09/15/2024 08/01/2024 labetaloL (NORMODYNE,TRANDAT E) tablet 200 mg 2 09/08/2024 09/06/2024 doxylamine (UNISOM) tablet 25 mg 1 09/06/20 24 NIFEdipine (PROCARDIA XL/ADA LAT CC) extended release tablet 120 mg 1 09/03/2024 NIFEdipine (PROCARDIA XL/ADA LAT CC) extended release tablet 30 mg 3 09/02/2024 07/29/2024 bisacodyL (DULCOLAX) suppository 10 mg 1 metoclopramide (REGLAN) tablet 10 mg 4 08/0608/01/2024 carbamide peroxide (DEBROX) 6.5 % otic solution 10 drop 1 08/19/2024 fluticasone propionate (FLON ASE) 50 mcg/actuation nasal spray 1 spray 1 08/19/2024 guaiFENesin ER (MUCINEX) ext ended release tablet 600 mg 1 08/19/2024 hydrOXYzine (ATARAX) tablet 25 mg 2 sodium chloride (OCEAN) 0.65 % nasal spray 1 spray 1 08/17/2024 ioversoL (OPTIRAY 350) syringe 100 mL 1 10/2023 NIFEdipine (PROCARDIA XL/ADA LAT CC) extended release tablet 90 mg 1 08/01/2024 prochlorperazine (COMPAZINE) tablet 10 mg 2 08/01/2024 07/29/2024 NIFEdipine (PROCARDIA XL/ADA LAT CC) extended release tablet 60 mg 1 07/31/2024 senna (SENOKOT) tablet 1 tablet 1 acetaminophen (TYLENOL) tablet 650 mg 1 aspirin chewable tablet 81 mg 1 07/29/2024 betamethasone (CELESTONE) injection 12 mg 1 07/29/2024 Carrier Fluids for Secondary Infusion - 0.9% Sodium Chloride 1 07/29/2024 dextrose 5% and Lactated Ringer's infusion 1 07/29/2024 potassium chloride ER (KLOR- CON) extended release tablet 30 mEq 1 07/29/2024 prochlorperazine (COMPAZINE) injection 10 mg 1 07/29/2024 progesterone (PROMETRIUM) capsule 200 mg 1 07/29/2024 EKG Orders Without Results Count [...] 07/29/2024 documented in this encounter Care Teams 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
--- OUTSIDE RECORDS SUMMARY | 2024-10-06 03:41 | XMS_ITS | Encounter Summary ---
Author Organization [facility] Healthcare Address [address] [place] [address] Care Team Providers Care Programming Development Project Manager Name Role Phone No, Physician Primary Care Provider [phone] Reason for Visit * Auth/Cert (Routine) Specialty Diagnoses / Procedures Referred By Contac t Referred To Contact Diagnoses Preeclampsia, unspecified trimester Hypertension Procedures N/A Referral ID Status Reason Start Date Expiration Date Visits Re quested Visits Authorized [id number] 1 1 Encounter Details Date Type Department Care Team (Late st Contact Info) Description 09/15/2024 9:00 AM VESSEL SPECIALIST Ancillary Procedure [address] [place] [address] Social History Tobacco Use Types Packs/Day Years Used Date Smoking Tobacco: Never Smokeless Tobacco: Never [facility] Utilities Answer Date Recorded In the past 12 months has e electric, gas, oil, or water [employer] threatened to shut off services in your [...] often do you attend chur ch or yazidism services? Never 07/29/2024 Do you belong to any clubs o r organizations such as confucianist groups, unions, fraternal or athletic groups, or [...] staff should administer the PHQ-9) 0 07/28/2024 [facility] - Occupational Stress Questionnaire Answer Date [...] things needed for daily living? No 07/29/2024 [place] Depression Scale Answer Date Recorded [place] Depression Scale Total 8 07/12/2024 The thought [...] time in the past 12 m [facility], were you homeless or living in a long-term (including now)? No 07/29/2024 Personal Safety Answer Date Recorded Have you ever been in or are you currently in a harmful physical or emotional relationship or is someone making you feel afraid or unsafe? Denies 07/29/2024 Comments Yes Sex and Gender Information Value Date Recorded Sex Assigned at Not on file Legal Sex Female 2:19 AM VESSEL SPECIALIST Gender Identity Not on file Sexual Orientation Not on file documented as of this encounter Plan of Treatment Not on file documented as of this encounter Procedures Procedure Name Priority Date/Time Associated Diagnosis Comments US OB FOLLOW UP IP Routine 09/15/2024 1:08 PM VESSEL SPECIALIST documented in this encounter Results * US Ob Follow Up (09/15/2024 1:08 PM VESSEL SPECIALIST) Fetus# Fetus1 VIEWPOINT Estimated Weight 1,709 g&grams VIEWPOINT Placenta Details anterior VIEWPOINT Presentation Vertex; Maternal right- low VIEWPOINT Fetus# Fetus2 VIEWPOINT Estimated Weight 2,585 g&grams VIEWPOINT Placenta Details anterior VIEWPOINT Presentation Vertex; Maternal left- high VIEWPOINT Anatomical Region Laterality Modality Abdomen N/A Ultrasound 09/15/2024 1:0 8 PM VESSEL SPECIALIST Impressions 09/15/2024 2:24 PM VESSEL SPECIALIST Diamniotic (presumed MCDA) TIUP at 33w33d who is admitted for preE with severe features who presents for growth US was previously determined to be monochorionic by the [facility] practice. A thin dividing membrane and [...] previously determined to be monochorionic by the [facility] MFractice. A thin dividing membrane and [...] IMG OB US PROCEDURES Final R esult documented in this encounter Visit Diagnoses Not on filedocumented in this encounter Care Teams Programming Development Project Manager Relationship Specialty Start Date End Date No, Physician PCP - General 02/25/24 documented as of this encounter
--- OUTSIDE RECORDS SUMMARY | 2024-10-06 03:41 | XMS_ITS | Encounter Summary ---
Author Organization [facility] Healthcare Address [address] [place] [address] Care Team Providers Care Head Animal Trainer Name Role Phone No, Physician Primary Care Provider [phone] Reason for Visit * Auth/Cert (Routine) Specialty Diagnoses / Procedures Referred By Contac t Referred To Contact Diagnoses Preeclampsia, unspecified trimester Hypertension Procedures N/A Referral ID Status Reason Start Date Expiration Date Visits Re quested Visits Authorized [id number] 1 1 Encounter Details Date Type Department Care Team (Late st Contact Info) Description 09/08/2024 10:00 AM KENNEL ATTENDANT Ancillary Procedure [address] [place] [address] Social History Tobacco Use Types Packs/Day Years Used Date Smoking Tobacco: Never Smokeless Tobacco: Never [facility] Utilities Answer Date Recorded In the past 12 months has e electric, gas, oil, or water [employer] threatened to shut off services in your [...] often do you attend chur ch or sabianism services? Never 07/29/2024 Do you belong to any clubs o r organizations such as moravian groups, unions, fraternal or athletic groups, or [...] staff should administer the PHQ-9) 0 07/28/2024 [facility] - Occupational Stress Questionnaire Answer Date [...] things needed for daily living? No 07/29/2024 [place] Depression Scale Answer Date Recorded [place] Depression Scale Total 8 07/12/2024 The thought [...] any time in the past 12 m [facility], were you homeless or living in a senior living (including now)? No 07/29/2024 Personal Safety Answer Date Recorded Have you ever been in or are you currently in a harmful physical or emotional relationship or is someone making you feel afraid or unsafe? Denies 07/29/2024 Comments Yes Sex and Gender Information Value Date Recorded Sex Assigned at Not on file Legal Sex Female 2:19 AM KENNEL ATTENDANT Gender Identity Not on file Sexual Orientation Not on file documented as of this encounter Plan of Treatment Not on file documented as of this encounter Procedures Procedure Name Priority Date/Time Associated Diagnosis Comments US OB LIMITED IP Routine 09/08/2024 10:29 AM KENNEL ATTENDANT documented in this encounter Results * US Ob Limited (09/08/2024 10:29 AM KENNEL ATTENDANT) Fetus# Fetus1 VIEWPOINT Placenta Details anterior VIEWPOINT Presentation Vertex; Maternal right- low VIEWPOINT Fetus# Fetus2 VIEWPOINT Placenta Details anterior VIEWPOINT Presentation Vertex; Maternal left- high (presenting) VIEWPOINT Anatomical Region Laterality Modality Abdomen N/A Ultrasound 09/08/2024 10:2 9 AM KENNEL ATTENDANT Impressions 09/08/2024 11:25 AM KENNEL ATTENDANT 1. Mo/di twin IUP at 32w 3d. [...] on filedocumented in this encounter Care Teams Head Animal Trainer Relationship Specialty Start Date End Date No, Physician PCP - General 02/25/24 documented as of this encounter
--- OUTSIDE RECORDS SUMMARY | 2024-10-06 03:41 | XMS_ITS | Encounter Summary ---
Author Organization [facility] Healthcare Address [address] [place] [address] Care Team Providers Care Firmware Software Verification Engineer Name Role Phone No, Physician Primary Care Provider [phone] Reason for Visit * Auth/Cert (Routine) Specialty Diagnoses / Procedures Referred By Contac t Referred To Contact Diagnoses Preeclampsia, unspecified trimester Hypertension Procedures N/A Referral ID Status Reason Start Date Expiration Date Visits Re quested Visits Authorized [id number] 1 1 Encounter Details Date Type Department Care Team (Late st Contact Info) Description 08/16/2024 8:15 AM BOILER OPERATOR HELPER Ancillary Procedure [address] [place] [address] Social History Tobacco Use Types Packs/Day Years Used Date Smoking Tobacco: Never Smokeless Tobacco: Never [facility] Utilities Answer Date Recorded In the past 12 months has e electric, gas, oil, or water [employer] threatened to shut off services in your [...] often do you attend chur ch or bahai services? Never 07/29/2024 Do you belong to any clubs o r organizations such as episcopalian groups, unions, fraternal or athletic groups, or [...] staff should administer the PHQ-9) 0 07/28/2024 [facility] - Occupational Stress Questionnaire Answer Date [...] things needed for daily living? No 07/29/2024 [place] Depression Scale Answer Date Recorded [place] Depression Scale Total 8 07/12/2024 The thought [...] any time in the past 12 m [facility], were you homeless or living in a chcf (including now)? No 07/29/2024 Personal Safety Answer Date Recorded Have you ever been in or are you currently in a harmful physical or emotional relationship or is someone making you feel afraid or unsafe? Denies 07/29/2024 Comments Yes Sex and Gender Information Value Date Recorded Sex Assigned at Not on file Legal Sex Female 2:19 AM BOILER OPERATOR HELPER Gender Identity Not on file Sexual Orientation Not on file documented as of this encounter Plan of Treatment Not on file documented as of this encounter Procedures Procedure Name Priority Date/Time Associated Diagnosis Comments US OB LIMITED IP Routine 08/16/2024 8:35 AM BOILER OPERATOR HELPER documented in this encounter Results * US Ob Limited (08/16/2024 8:35 AM BOILER OPERATOR HELPER) Fetus# Fetus1 VIEWPOINT Placenta Details anterior VIEWPOINT Presentation Transverse, maternal right-low VIEWPOINT Fetus# Fetus2 VIEWPOINT Placenta Details anterior VIEWPOINT Presentation Vertex; Maternal left- high VIEWPOINT Anatomical Region Laterality Modality Abdomen N/A Ultrasound 08/16/2024 8:36 AM BOILER OPERATOR HELPER Impressions 08/16/2024 2:23 PM BOILER OPERATOR HELPER Diamniotic (presumed MCDA) TIUP at 29w1d who is admitted for preE with severe features who presents for ??TTTS screen.Chorionicity was not fully assessed but was previously determined to be monochorionic by the [facility] MF practice. Anatomic surveys were also completed there. [...] previously determined to be monochorionic by the [facility] MFMpractice. Anatomic surveys were also [...] on filedocumented in this encounter Care Teams Firmware Software Verification Engineer Relationship Specialty Start Date End Date No, Physician PCP - General 02/25/24 documented as of this encounter
--- OUTSIDE RECORDS SUMMARY | 2024-10-06 03:41 | XMS_ITS | Encounter Summary ---
Author Organization [facility] Address [address] [place] [address] Phone Care Team Providers Care Actuarial Science Teacher Name Role Phone No, Physician Primary Care Provider [phone] Encounter Details Date Type Department Care Team (Latest Contact Info) Description 08/03/2024 11:34 AM CDT - 08/03/2024 11:59 PM CDT Hospital Encounter [facility] Pediatric Cardiology [facility] 2nd Floor [address] [place] [address] Discharge Disposition: Discharge to home or self care Social History Tobacco Use Types Packs/Day Years Used Date Smoking Tobacco: Never Smokeless Tobacco: Never [facility] Utilities Answer Date Recorded In the past 12 months has [facility] electric, gas, oil, or water [employer] threatened to shut off services in your [...] How often do you attend chur or voodoo services? Never 07/29/2024 Do you belong to any clubs o r organizations such as catholic groups, unions, fraternal or athletic groups, or [...] staff should administer the PHQ-9) 0 07/28/2024 [facility] - Occupational [...] things needed for daily living? No 07/29/2024 [place] Depression Scale Answer Date Recorded [place] Depression Scale Total 8 07/12/2024 The thought [...] any time in the past 12 m [facility], were you homeless or living in a [...] on file Legal Sex Female 2:19 AM CLOTH WORKER Gender Identity Not on file Sexual Orientation [...] Date/Time Associated Diagnosis Comments ECHOCARDIOGRAM Routine 08/03/2024 4:06 PM CDT documented in this encounter Results * Echocardiogram (08/03/2024 4:06 PM CDT) Anatomical Region Laterality Modality Ultrasound 08/03/2024 11:3 8 AM CDT Narrative 08/03/2024 4:30 PM CDT ?[facility] Heart Station ? Echo Report ?[address] ??[address] ?[phone] ? Patient Name: SUKI BEE ? Study Type: Echo ? Patient : 1995 ? Exam Date: ??08/03/2024 ? Age: ?29Y ? Exam Time: ??11:38:00 AM ? Referring MD: SIM HUSAIN ? Height: ? 65in ? Weight: ? 284lb ? BSA: ?2.3 m2 ? Sex: FEMALE ? BP: ? 139/83 ? Linux Solar[employer] Administrator: May Quick ? Pat. Stat.: Inpatient ?Room: 6800 ? Account:[id number] ? Indications for Study:AORTIC ECTASIA. 747.29, MONO-DI [...] Normal. Septum: PFO. Defect sz. Moderate ??Shunt: Xsyuo-it-Ysgs ?? Ventricles: D-looped ??LV size: Normal. LV [...] Procedure Note Macie Vickers MD - 08/03/2024 [facility] Heart [facility] Echo Report [address] [address] Patient Name: SUKI BEE Study Type: Echo Patient : 1995 Exam Date: 08/03/2024 Age: 29Y Exam Time: 11:38:00 AM Referring MD: SIM HUSAIN Height: 65in Weight: 284lb BSA: 2.3 m2 Sex: FEMALE BP: 139/83 [employer] Administrator: May Hoskins. Stat.: Inpatient Room: [facility] Account:[id number] Indications for Study:AORTIC ECTASIA. 747.29, MONO-DI TWINS [...] Normal. Septum: PFO. Defect sz. Moderate Shunt: Ezuzt-gn-Voev Ventricles: D-looped LV size: Normal. LV function:Normal. [...] on filedocumented in this encounter Care Teams Actuarial Science Teacher Relationship Specialty Start Date End Date No, Physician PCP - General 02/25/24 documented as of this encounter
--- OUTSIDE RECORDS SUMMARY | 2024-10-06 03:41 | XMS_ITS | Encounter Summary ---
Author Organization [facility] Healthcare Address [address] [place] [address] Care Team Providers Care Social Studies Teacher Name Role Phone No, Physician Primary Care Provider [phone] Encounter Details Date Type Department Care Team (Late st Contact Info) Description 08/05/2024 Telephone [employer] [address] [facility] [address] [place] [address] Dia Mantilla MD [address] [place] [address] [address] [place] [address] Social History Tobacco Use Types Packs/Day Years Used Date Smoking Tobacco: Never Smokeless Tobacco: Never [facility] Utilities Answer Date Recorded In the past 12 months has [facility] electric, gas, oil, or water [employer] threatened to shut off services in your [...] often do you attend chur ch or moravian services? Never 07/29/2024 Do you belong to any clubs o r organizations such as quaker groups, unions, fraternal or athletic groups, or [...] should administer the PHQ-9) 0 07/28/2024 [facility] of Occupat ional Health - [...] things needed for daily living? No 07/29/2024 [place] Depression Scale Answer Date Recorded [place] Depression Scale Total 8 07/12/2024 The thought [...] any time in the past 12 m [facility], were you homeless or living in a penitentiary (including now)? No 07/29/2024 Personal Safety Answer Date Recorded Have you ever been in or are you currently in a harmful physical or emotional relationship or is someone making you feel afraid or unsafe? Denies 07/29/2024 Comments Yes Sex and Gender Information Value Date Recorded Sex Assigned at Not on file Legal Sex Female 2:19 AM AUTOMOTIVE METALSMITH Gender Identity Not on file Sexual Orientation Not on file documented as of this encounter Miscellaneous Notes * Telephone Encounter - Beata Joy RN - 08/05/2024 2:19 PM CDT [phone] Patient's spouse called and wants to talk with Dr. Mantilla regarding patients recent admission to [facility] for Pre- Eclampsia. Spouse was concerned with the fact that he felt they weren't truly informed with everything that is going on with her and the babies once they were admitted. His understanding was that she was going to [facility] for an evaluation and then she would be able to go home, but now she is admitted until delivery. He states he discussed with the doctors there that he would like her discharged so that she can be home, and was told that they would need to call their primary doctor for that. He is aware that Dr. Mantilla is out of the office and not back until Thursday, but I stated I would send her a message and see if she can call them on Thursday regarding this. He stated that he has beenvery happy with their care in our office and at [facility], it has just been since her admission to [facility]. GITA Noel, RN documented in this encounter Plan of Treatment Not on file documented as of this encounter Visit Diagnoses Not on filedocumented in this encounter Care Teams Social Studies Teacher Relationship Specialty Start Date End Date No, Physician PCP - General 02/25/24 documented as of this encounter
--- OUTSIDE RECORDS SUMMARY | 2024-10-06 03:41 | XMS_ITS | Encounter Summary ---
Author Organization [facility] Healthcare Address [address] [place] [address] Care Team Providers Care Wellfield Technician Name Role Phone No, Physician Primary Care Provider [phone] Reason for Referral * Diagnostic Imaging (Routine) - Pending Review Specialty Diagnoses / Procedures Referred By Contac t Referred To Contact Diagnoses High risk , antepartum Monochorionic diamniotic twin , antepartum Procedures US OB Heart with US Follow up (C) Dia Mantilla MD [address] [place] [address] DR BAUTISTA [address] [place] [address] Phone: tel: [place] [id number] [place] [address] Referral ID Status Reason Start Date Expiration Date V isits Requested Visits Authorized [id number] Pending Review 05/19/2024 06/18/2025 1 1 Reason for Visit * Diagnostic Imaging (Routine) - Pending Review Specialty Diagnoses / Procedures Referred By Contac t Referred To Contact Diagnoses High risk , antepartum Monochorionic diamniotic twin , antepartum Procedures US OB Heart with US Follow up (C) Dia Mantilla MD [address] [place] [address] DR BAUTISTA [address] [place] [address] Phone: tel: [facility] [address] [place] [address] Referral ID Status Reason Start Date Expiration Date V isits Requested Visits Authorized [id number] Pending Review 05/19/2024 06/18/2025 1 1 Encounter Details Date Type Department Care Team (Latest Contact Info) Description 07/13/2024 11:25 AM CDT - 07/13/2024 11:59 PM CDT Hospital Encounter [facility] Maternal Medicine Ultrasound[facility] [address] [place] [address] High risk , antepartum; Monochorionic diamniotic twin [...] staff should administer the PHQ-9) 0 05/18/2024 [place] Depression Scale Answer Date Recorded [place] Depression Scale Total 8 07/12/2024 The thought of harming myself has occurred to me . Never 07/12/2024 Personal Safety Answer Date Recorded Getting School Help Needed Not on file 02/24 Comments Yes Sex and Gender Information Value Date Recorded Sex Assigned at Not on file Legal Sex Female 2:19 AM REGULATORY COMPLIANCE DIRECTOR Gender Identity Not on file Sexual Orientation Not on file documented as of this encounter Medications at Time of Discharge no115/iron/folic acid ( ORAL) Take by mouth aspirin 81 mg [...] Priority Date/Time Associated Diagnosis Comments US OB HEART WITH US FOLLOW UP (C) Schedule Routine, Read Routine (OP Routine) 07/13/2024 2:47 PM CDT High risk , antepartum Monochorionic diamniotic twin , antepartum documented in this encounter Results * US OB Heart with US Follow [...] antepartum documented in this encounter Care Teams Wellfield Technician Relationship Specialty Start Date End Date No, Physician PCP - General 02/25/24 documented as of this encounter
--- OUTSIDE RECORDS SUMMARY | 2024-10-06 03:41 | XMS_ITS | Encounter Summary ---
Author Organization [facility] Healthcare Address [address] [place] [address] Care Team Providers Care Rn Float Name Role Phone No, Physician Primary Care Provider [phone] Reason for Visit * Reason Comments Ultrasound * Diagnostic Imaging (Routine) - Closed Specialty Diagnoses / Procedures Referred By Contac t Referred To Contact Radiology Diagnoses Ultrasound scan done for inability to hear heart tones Procedures US Ob Limited Dia Mantilla MD [address] [place] [address] DR MICHELE [address] [place] [address] Phone: tel: [facility] [address] [place] [address] [address] [place] [address] Phone: tel: fax: Referral ID Status Reason Start Date Expiration Date Visits Re quested Visits Authorized [id number] Closed 06/13/2024 07/13/2025 1 1 Encounter Details Date Type Department Care Team (Latest Contact Info) Description 07/12/2024 10:00 AM CDT Ancillary Procedure [facility] [address] [place] [address] [address] [place] [address] Ultrasound scan done for inability to hear heart tones Social History Tobacco Use Types Packs/Day Years [...] staff should administer the PHQ-9) 0 05/18/2024 [place] Depression Scale Answer Date Recorded [place] Depression Scale Total 8 07/12/2024 The thought of harming myself has occurred to me . Never 07/12/2024 Personal Safety Answer Date Recorded Getting School Help Needed Not on file 02/24 Comments Yes Sex and Gender Information Value Date Recorded Sex Assigned at Not on file Legal Sex Female 2:19 AM TWISTER DOFFER Gender Identity Not on file Sexual Orientation Not on file documented as of this encounter Plan of Treatment Not on file documented as of this encounter Procedures Procedure Name Priority Date/Time Associated Diagnosis Comments US OB LIMITED Schedule Routine, Read Routine (OP Routine) 07/12/2024 10:20 AM CDT Ultrasound scan done for inability to hear heart tones documented in this encounter Results * US Ob Limited (07/12/2024 10:20 AM CDT) Fetus# Fetus1 VIEWPOINT Placenta Details anterior VIEWPOINT [...] activity.2. Normal amniotic fluid in both sacs. us Dia Mantilla MD IMG OB US PROCEDURE S Final Result documented in this encounter Visit Diagnoses Diagnosis Ultrasound scan done for inability to hear heart tones Abnormality in heart rate/rhythm, antepartum condition or complication documented in this encounter Care Teams Rn Float Relationship Specialty Start Date End Date No, Physician PCP - General 02/25/24 documented as of this encounter
--- OUTSIDE RECORDS SUMMARY | 2024-10-06 03:41 | XMS_ITS | Encounter Summary ---
Author Organization [facility] Healthcare Address [address] [place] [address] Care Team Providers Care Dramatic Arts Historian Name Role Phone No, Physician Primary Care Provider [phone] Encounter Details Date Type Department Care Team (Late st Contact Info) Description 07/12/2024 10:55 AM CDT [address] Encounter for supervision of normal first in first trimester Social History Tobacco Use Types Packs/Day Years [...] staff should administer the PHQ-9) 0 05/18/2024 [place] Depression Scale Answer Date Recorded [place] Depression Scale Total 8 07/12/2024 The thought of harming myself has occurred to me . Never 07/12/2024 Personal Safety Answer Date Recorded Getting School Help Needed Not on file 02/24 Comments Yes Sex and Gender Information Value Date Recorded Sex Assigned at Not on file Legal Sex Female 2:19 AM REMELTER Gender Identity Not on file Sexual Orientation Not on file documented as of this encounter Plan of Treatment Not on file documented as of this encounter Procedures Procedure Name Priority Date/Time Associated Diagnosis Comments VITAMIN D 25 HYDROXY Routine 07/12/2024 11:01 AM CDT Encounter for supervision of normal first in first trimester documented in this encounter Results * (ABNORMAL) Vitamin D 25 hydroxy (07/12/2024 11:01 AM CDT) Vitamin D 25-OH 26(L) 30 - 80 ng/mL Blood 07/12/2024 11:0 1 AM CDT 07/12/2024 1:53 PM CDT us Dia Mantilla MD LAB BLOOD ORDERABLE S Final Result [facility] Department [place] [address] documented in this encounter Visit Diagnoses Diagnosis Encounter for supervision of normal first in first trimester documented in this encounter Care Teams Dramatic Arts Historian Relationship Specialty Start Date End Date No, Physician PCP - General 02/25/24 documented as of this encounter
--- OUTSIDE RECORDS SUMMARY | 2024-10-06 03:41 | XMS_ITS | Encounter Summary ---
Author Organization [facility] Healthcare Address [address] [place] [address] Care Team Providers Care Marine Water Tender Name Role Phone No, Physician Primary Care Provider [phone] Reason for Referral * Diagnostic Imaging (Routine) - Authorized Specialty Diagnoses / Procedures Referred By Urbano salinas Referred To Contact Radiology Diagnoses Ultrasound scan done for inability to hear heart tones Procedures US Ob Limited Dia Mantilla MD [address] [place] [address] DR BAUTISTA [address] [place] [address] Phone: tel: [facility] [address] [place] [address] [address] [place] [address] Phone: tel: fax: Referral ID Status Reason Start Date Expiration Date V isits Requested Visits Authorized [id number] Authorized 07/28/2024 08/27/2025 1 1 Encounter Details Date Type Department Care Team (Late st Contact Info) Description 07/28/2024 Telephone [facility] [address] [facility] [address] [place] [address] Dia Mantilla MD [address] [place] [address] [address] [place] [address] Social History Tobacco Use Types Packs/Day Years Used Date Smoking Tobacco: Never Smokeless Tobacco: Never [facility] Utilities Answer Date Recorded In the past 12 months has [employer] electric, gas, oil, or water company threatened [...] week 07/29/2024 How often do you attend [facility] or [facility] services? Never 07/29/2024 Do you belong to [...] staff should administer the PHQ-9) 0 07/28/2024 [facility] ional Health - Occupational [...] things needed for daily living? No 07/29/2024 [place] Depression Scale Answer Date Recorded [place] Depression Scale Total 8 07/12/2024 The thought [...] any time in the past 12 m [facility], were you homeless or living in a jail (including now)? No 07/29/2024 Personal Safety Answer Date Recorded Have you ever been in or are you currently in a harmful physical or emotional relationship or is someone making you feel afraid or unsafe? 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 Mantilla is ok with patient seeing KENTRELL Collado next week for her ABDON appt. Patient will have a usg to check heart tone on 08/02/24 at 11 am and then will go get lunch and come back at 1:15 pm for an appointment with KENTRELL Collado. Patient is aware that ifher blood pressure is elevated at that visit that she will need to be sent to Labor and Delivery since Dr. Mantilla is out of town. GITA Collado RN * Telephone Encounter - Beata Joy RN - 07/28/2024 11:51 AM CDT [phone] Patient called in stating she had an appt. With Dr. Tellez, [facility] doctor, yesterday. At that appointment it was noted that patient had 1+ protein in her urine and elevated lood pressure. Patient stated her BP was 139/100. Patient is scheduled to see KENTRELL Collado 08/10/24 for ABDON, but Dr. Tellez is wanting patient see for this next week. I will send to [facility] to see about moving appt to next week and what day time would be good, since Dr. Mantilla is out of the office next week. KENTRELL Collado RN documented in this encounter Plan of Treatment Scheduled Orders Name Type Priority Associated Diagnoses Orde r Schedule US Ob Limited Imaging Schedule Routine , Read Routine (OP Routine) Ultrasound scan done for inability to hear heart tones 1 Occurrences starting 07/28/2024 until 07/28/2025 documented as of this encounter Visit Diagnoses Diagnosis Ultrasound scan done for inability to hear heart tones- Primary Abnormality in heart rate/rhythm, antepartum condition or complication documented in this encounter Care Teams Marine Water Tender Relationship Specialty Start Date End Date No, Physician PCP - General 02/25/24 documented as of this encounter
--- OUTSIDE RECORDS SUMMARY | 2024-10-06 03:41 | XMS_ITS | Encounter Summary ---
Author Organization [facility] Healthcare Address [address] [place] [address] Care Team Providers Care Cold Type Composing Machine Operator Name Role Phone No, Physician Primary Care Provider [phone] Reason for Visit * Reason Comments Follow-up Encounter Details Date Type Department Care Team (Late st Contact Info) Description 07/27/2024 2:30 PM CDT Office Visit [facility] M[facility] at [facility] [address] [facility] [address] [place] [address] [phone] Byron Tellez MD [address] [address] Unspecified high-risk (Primary Dx) Social History [...] 07/28/2024 How often do you attend chur ch or hindu services? Never 07/28/2024 Do you belong to [...] should administer the PHQ-9) 0 07/28/2024 [facility] [place] - Occupational Stress Questionnaire Answer Date Recorded [...] things needed for daily living? No 07/28/2024 [place] Depression Scale Answer Date Recorded [place] Depression Scale Total 8 07/12/2024 The thought [...] living in a chcf (including now)? 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 Suki E Edward (1995) is complicated by monochorionic diamniotic twin gestation. This is her 1st . Her is also complicated by uterine irritability for which she was current ly taking ibuprofen 400 mg every 6 hours [...] 284 lbs. This is a change of 4lbs. Pupils are equal and reactive to light and accommodation. Cranial nerves 2-12 are intact. Neckis supple. Thyroid is not detected to be enlarged. No cervical lymphadenopathy is identified. Respiratory effort is normal. Heart has regular rate and rhythm. Breasts are not examined. Liver is not palpated. Spleen is not palpated. Uterus is palpable. Fundal height today measures 29 cm. heartrate is detected by Doppler auscultation. Extremities without [...] B at the 20th percentile. The inter twingrowth discordance is 19.7%. There is no clear-cut evidence of twin-twin transfusion. 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 Today we have elected not to pursue echocardiogram at [facility] as the likelihood of identifying a change [...] look for other markers suspicious for preeclampsia arebeing drawn today results should be available by [...] therapy. Today I have recommended that Suki E Leon (1995) be seen next week. We have scheduledan appointment here but hopefully she will make [...] aortic coarctation may not be kept at [facility] after delivery. Dr. Dia Mantilla will have to evaluate whether or not twin a can be delivered at [facility]. It was unlikely that new information between now and delivery will completely exclude the possibility ofcoarctation of the aorta. It is necessary that [...] any separately reportable services. Voice recognition software [employer] Direct was used to dictate and transcribe this document.Edger Automatic variances may occur. Despite proof reading, typographical errors may occur. documented in this encounter Plan of Treatment Not on file documented as of this encounter Procedures Procedure Name Priority Date/Time Associated Diagnosis Comments EGFR STAT 07/27/2024 4:00 PM CDT Unspecified [...] Routine 07/27/2024 3:19 PM CDT Unspecified high-risk documented in this encounter Results * eGFR (07/27/2024 4:00 PM CDT) eGFR [...] MD LAB BLOOD ORDERABLES Final Re sult [facility] [address] Department [place] [address] * Differential, auto (07/27/2024 4:00 PM CDT) Neutrophil abs 5.9 1.5 - 6.5 K/cumm Imm gran abs 0.1 0.0 - 0.1 K/cumm [facility] Lymphocyte abs 2.0 0.8 - 3.3 K/cumm [facility] Monocyte abs 0.8 0.2 - 0.8 K/cumm [facility] Eosinophil abs 0.1 0.0 - 0.5 K/cumm [facility] Basophil abs 0.0 0.0 - 0.1 K/cumm [facility] Neutrophil pct 66.7 % [facility] Comment: Interpretive Data Percent cell count reference ranges are not reported, since discordance with absolute values may lead to misinterpretation of CBC data. Current Interpretive Data was last revised on 2018. Imm gran pct 0.8 % [facility] Comment: Interpretive Data Percent cell count reference ranges are not reported, since discordance with absolute values may lead to misinterpretation of CBC data. Current Interpretive Data was last revised on 2018. Lymphocyte pct 22.5 % [facility] Comment: Interpretive Data Percent cell count reference ranges are not reported, since discordance with absolute values may lead to misinterpretation of CBC data. Current Interpretive Data was last revised on 2018. Monocyte pct 8.4 % [facility] Comment: Interpretive Data Percent cell count reference ranges are not reported, since discordance with absolute values may lead to misinterpretation of CBC data. Current Interpretive Data was last revised on 2018. Eosinophil pct 1.4 % [facility] Comment: Interpretive Data Percent cell count reference ranges are not reported, since discordance with absolute values may lead to misinterpretation of CBC data. Current Interpretive Data was last revised on 2018. Basophil pct 0.2 % [facility] Comment: Interpretive Data Percent cell count reference ranges are not reported, since discordance with absolute values may lead to misinterpretation of CBC data. Current Interpretive Data was last revised on 2018. Blood 07/27/2024 4:00 PM CDT 07/27/2024 4:39 PM CDT Byron Tellez MD LAB BLOOD ORDERABLES Final Re sult Performing Organization Address [facility]/ZIP Co de Phone Number [facility] [address] [facility] [place] [address] * Uric acid (07/27/2024 4:00 PM CDT) Pathologist [facility] Uric acid 4.9 2.5 - 7.0 mg/dL Blood 07/27/2024 4:00 PM CDT 07/27/2024 4:45 PM CDT Byron Tellez MD LAB BLOOD ORDERABLES Final Re sult Performing Organization Address [facility]/RUST Co de Phone Number [facility] [address] [place] [address] * (ABNORMAL) Comprehensive metabolic panel (07/27/2024 4:00 PM CDT) Sodium 137 135 - 145 mmol/L Potassium, pl 3.5 3.3 - 4.9 mmol/L [facility] Chloride 104 97 - 110 mmol/L [facility] CO2 21(L) 22 - 32 mmol/L [facility] Anion gap 12 2 - 15 mmol/L [facility] BUN 5(L) 6 - 25 mg/dL [facility] Creatinine 0.53(L) 0.60 - 1.10 mg/dL [facility] Glucose 75 70 - 199 mg/dL [facility] Comment: Interpretive Data Fasting glucose >/= 126 [...] 2022. Calcium 9.4 8.5 - 10.3 mg/dL [facility] Bilirubin, total 0.4 0.1 - 1.2 mg/dL [facility] Protein, pl 7.1 6.5 - 8.5 g/dL [facility] Albumin 3.7 3.5 - 5.0 g/dL [facility] Alk phos 72 40 - 130 Units/L [facility] ALT 20 7 - 45 Units/L [facility] AST 21 10 - 45 Units/L [facility] Blood 07/27/2024 4:00 PM CDT 07/27/2024 4:45 PM CDT Byron Tellez MD LAB BLOOD ORDERABLES Final Re sult [facility] [address] Department [place] [address] * Protein / creatinine ratio, urine, random (07/27/2024 4:00 PM CDT) Protein, ur, quant 25.0 mg/dL Comment: Interpretive Data No reference range established. Current interpretive data was last revised 2019. Creatinine Ur 157.3 mg/dL [facility] Comment: Interpretive Data No reference range established. Current interpretive data was last revised 2019. Protein/creatinin e ratio 158.9 0.0 - 180.0 mg/g CR [facility] Urine 07/27/2024 4:00 PM CDT 07/27/2024 4:44 PM CDT Byron Tellez MD LAB URINE ORDERABLES Final Re sult Performing Organization Address [facility]UST Co de Phone Number [facility] [address] [employer] [place] [address] * CBC with auto differential (07/27/2024 4:00 PM CDT) Pathologist [facility] WBC 8.9 3.8 - 9.9 K/cumm Hgb 13.0 11.9 - 15.5 g/dL [facility] Hct 37.9 35.6 - 45.5 % [facility] Plt 298 150 - 400 K/cumm [facility] MPV 10.0 9.1 - 12.3 fL [facility] RBC 4.25 3.90 - 5.20 M/cumm [facility] MCV 89.2 81.3 - 96.4 fL [facility] MCH 30.6 27.1 - 33.3 pg [facility] MCHC 34.3 32.3 - 35.7 g/dL [facility] RDW CV 14.1 11.1 - 14.9 % [facility] RDW SD 46.0 35.7 - 48.1 fL [facility] NRBC abs 0.00 0.00 - 0.01 K/cumm [facility] Blood 07/27/2024 4:00 PM CDT 07/27/2024 4:39 PM CDT Byron Tellez MD LAB BLOOD ORDERABLES Final Re sult Performing Organization Address City/[facility]/ZIP Co de Phone Number [facility] [address] [place] [address] * (ABNORMAL) POCT urinalysis dipstick (07/27/2024 3:19 PM CDT) Glucose, ur, POC Negative Negative MG/DL Bilirubin, ur, POC Small Negative, Small, Moderate, Large Ketones, ur, POC 15.(A) Negative Specific [place], POC 1.020 1.003 - 1.030 Blood, ur, [...] Primary documented in this encounter Care Teams Cold Type Composing Machine Operator Relationship Specialty Start Date End Date No, Physician PCP - General 02/25/24 documented as of this encounter
--- OUTSIDE RECORDS SUMMARY | 2024-10-06 03:41 | XMS_ITS | Encounter Summary ---
Author Organization [facility] Healthcare Address [address] [place] [address] Care Team Providers Care Regulatory Affairs Internship Name Role Phone No, Physician Primary Care Provider [phone] Encounter Details Date Type Department Care Team (Latest Contact Info) Description 07/27/2024 3:59 PM CDT - 07/27/2024 11:59 PM CDT Hospital Encounter [facility] [id number] [place] [address] Discharge Disposition: Discharge to home or [...] week 07/28/2024 How often do you attend [facility] or protestant services? Never 07/28/2024 Do you belong to any clubs o r organizations such as yarsanism groups, unions, fraternal or athletic groups, or [...] PHQ-9) 0 07/28/[address]24 [facility] - Occupational Stress Questionnaire Answer Date [...] things needed for daily living? No 07/28/2024 [place] Depression Scale Answer Date Recorded [place] Depression Scale Total 8 07/12/2024 The thought [...] any time in the past [address] [facility], were you homeless or living in a halfway (including now)? 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
--- OUTSIDE RECORDS SUMMARY | 2024-10-06 03:42 | XMS_ITS | Encounter Summary ---
Author Organization [facility] Healthcare Address [address] [place] [address] Care Team Providers Care Porter Baggage Name Role Phone No, Physician Primary Care Provider [phone] Reason for Referral * Diagnostic Imaging (Routine) - Pending Review Specialty Diagnoses / Procedures Referred By Contac t Referred To Contact Diagnoses High risk , antepartum Monochorionic diamniotic twin , antepartum Procedures US OB Follow up with US Transvaginal (C) Dia Mantilla MD [address] [place] [address] [address] [place] [address] Phone: tel: [facility] [address] [place] [address] Referral ID Status Reason Start Date Expiration Date V isits Requested Visits Authorized [id number] Pending Review 05/19/2024 06/18/2025 2 2 Reason for Visit * Diagnostic Imaging (Routine) - Pending Review Specialty Diagnoses / Procedures Referred By Contac t Referred To Contact Diagnoses High risk , antepartum Monochorionic diamniotic twin , antepartum Procedures US OB Follow up with US Transvaginal (C) Dia Mantilla MD [address] [place] [address] [address] [place] [address] Phone: tel: [facility] [address] [place] [address] Referral ID Status Reason Start Date Expiration Date V isits Requested Visits Authorized [id number] Pending Review 05/19/2024 06/18/2025 2 2 Encounter Details Date Type Department Care Team (Latest Contact Info) Description 06/29/2024 1:00 PM CDT - 06/29/2024 11:59 PM CDT Hospital Encounter [facility] Maternal Medicine Ultrasound[facility] [address] [place] [phone] High risk , antepartum; Monochorionic diamniotic twin [...] staff should administer the PHQ-9) 0 05/18/2024 [place] Depression Scale Answer Date Recorded [place] Depression Scale Total 10 05/20/2024 The thought of harming myself has occurred to me . 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 Gender Identity Not on file Sexual Orientation Not on file documented as of this encounter Medications at Time of Discharge no115/iron/folic acid ( 19 ORAL) Take by mouth aspirin 81 mg chewable tablet Take 1 tablet (81 mg total) by mouth daily 30 tablet 11 04/15/2024 09/22/2024 metoclopramide (REGLAN) 10 mg tablet Take 1 tablet (10 mg total) by mouth 4 (four) times a day as needed (nausea) 30 tablet 1 05/31/2024 09/22/2024 documented as of this encounter Discharge Disposition Disposition Code Departure Means Destination Discharge to home or self care documented in this encounter Plan of Treatment Not on file documented as of this encounter Procedures Procedure Name Priority Date/Time Associated Diagnosis Comments US OB FOLLOW UP WITH US TRANSVAGINAL (C) Schedule Routine, Read Routine (OP Routine) 06/29/2024 2:25 PM CDT High risk , antepartum Monochorionic diamniotic twin , antepartum documented in this encounter Results * US OB Follow up with US Transvaginal (C) (06/29/2024 2:25 PM CDT) Fetus# Fetus1 VIEWPOINT Estimated Weight 641 g&grams VIEWPOINT Placenta Details anterior VIEWPOINT Presentation Vertex; Maternal left- low VIEWPOINT Fetus# Fetus2 VIEWPOINT Estimated Weight 455 g&grams VIEWPOINT Placenta Details anterior VIEWPOINT Presentation Vertex; Maternal right- high VIEWPOINT Anatomical Region Laterality Modality Abdomen N/A Ultrasound 06/29/2024 1:16 PM CDT Impressions 06/29/2024 2:28 PM CDT Monochorionic diamniotic twin at 22 weeks and 2 days in vertex and vertex presentations for twin A and twin B respectively. ??The amniotic fluid volume is normal in each gestational sac. ??The heart rates were normal for both twins. ??Twin A has an anterior placenta. ??Twin B has an anterior placenta. ??There is a thin intervening membrane. ??This is most consistent with monochorionic diamniotic placentation. ??The inter twin growth discordance is 29.0%.Twin A is in vertex presentation. ??Twin A has an anterior placenta. ??The deepest vertical pocket of amniotic fluid in the gestational sac of twin A measures 4.6 cm. ??No abnormalities of anatomy are detected in today's imaging. ??While reassuring ultrasound can not identify all defects. ??Growth of twin A is evaluated. ??The estimated weight of twin A is 641 g. ??This is the 98th percentile for gestational age. ??Umbilical artery Doppler blood flow in twin A is normal with a pulsatility index of 1.03. ??There is no evidence of increased placental vascular resistance in twin A. ??Middle cerebral artery Doppler blood flow in twin A is normal with a peak systolic velocity in the middle cerebral artery of 28.86 centimeters/second. ??This is 1.02 multiples of the median. ??There is no evidence of cephalic blood flow shunting in twin A. ??There was no evidence of acute or severe twin-twin transfusion in twin A. ??There is no evidence of twin anemia polycythemia in twin A.Twin B is in vertex presentation. ??Twin B has an anterior placenta. ??The deepest vertical pocket of amniotic fluid in the gestational sac of twin B measures 4.3 cm. Growth of twin B is evaluated. ??The estimated weight of twin B is 455 g. ??This is the 23rd percentile for assigned gestational age. ??The interval growth of twin B has been less than expected. ??No abnormalities of anatomy are identified in twin B. ??While reassuring ultrasound can not identify all defects. ??Umbilical artery Doppler blood flow in twin B is normal with a pulsatility index of 1.14. ??There was no evidence of increased placental vascular resistance in twin B. Middle cerebral artery Doppler blood flow in twin B is normal with a peak systolic velocity in the middle cerebral artery of 25.51 centimeters/second. ??This is 0.90 multiples of the median. ??There is no evidence of cephalic blood flow shunting in twin B. There is no evidence of twin anemia polycythemia in twin B. ??There is no evidence of acute or severe twin-twin transfusion in twin B.The cervix is evaluated by transvaginal ultrasonography. ??Cervical length is 36.7 mm. ??There is no endocervical funneling. ??Cervical length is normal for gestational age. ??Clinical correlation is recommended. Narrative Procedure Note Byron Tellez MD - 06/29/2024 IMPRESSION: Monochorionic diamniotic twin at 22 weeks and 2 days in vertexand vertex presentations for twin A and twin B respectively. The amnioticfluid volume is normal in each gestational sac. The heart rateswere normal for both twins. Twin A has an anterior placenta. Twin B hasan anterior placenta. There is a thin intervening membrane. This is mostconsistent with monochorionic diamniotic placentation. The inter twingrowth discordance is 29.0%.Twin A is in vertex presentation. Twin A hasan anterior placenta. The deepest vertical pocket of amniotic fluid inthe gestational sac of twin A measures 4.6 cm. No abnormalities of fetalanatomy are detected in today's imaging. While reassuring ultrasound cannot identify all defects. Growth of twin A is evaluated. Theestimated weight of twin A is 641 g. This is the 98th percentilefor gestational age. Umbilical artery Doppler blood flow in twin A isnormal with a pulsatility index of 1.03. There is no evidence of increased placental vascular resistance in twin A. Middlecerebral artery Doppler blood flow in twin A is normal with a peaksystolic velocity in the middle cerebral artery of 28.86centimeters/second. This is 1.02 multiples of the median. There is noevidence of cephalic blood flow shunting in twin A. There was no evidenceof acute or severe twin-twin transfusion in twin A. There is no evidenceof twin anemia polycythemia in twin A.Twin B is in vertex presentation.Twin B has an anterior placenta. The deepest vertical pocket of amnioticfluid in the gestational sac of twin B measures 4.3 cm. Growth of twin Bis evaluated. The estimated weight of twin B is 455 g. This is [id number] percentile for assigned gestational age. The interval growthof twin B has been less than expected. No abnormalities of anatomyare identified in twin B. While reassuring ultrasound can not identifyall defects. Umbilical artery Doppler blood flow in twin B is normal with a pulsatility index of 1.14. There was no evidence ofincreased placental vascular resistance in twin B. Middle cerebral arteryDoppler blood flow in twin B is normal with a peak systolic velocity inthe middle cerebral artery of 25.51 centimeters/second. This is 0.90multiples of the median. There is no evidence of cephalic blood flowshunting in twin B. There is no evidence of twin anemia polycythemia intwin B. There is no evidence of acute or severe twin-twin transfusion intwin B.The cervix is evaluated by transvaginal ultrasonography. Cervicallength is 36.7 mm. There is no endocervical funneling. Cervical lengthis normal for gestational age. Clinical correlation is recommended. us Dia Mantilla MD IMG OB US PROCEDURE S Final Result documented in this encounter Visit Diagnoses Diagnosis High risk , antepartum Monochorionic diamniotic twin , antepartum documented in this encounter Care Teams Porter Baggage Relationship Specialty Start Date End Date No, Physician PCP - General 02/25/24 documented as of this encounter
--- OUTSIDE RECORDS SUMMARY | 2024-10-06 03:42 | XMS_ITS | Encounter Summary ---
Author Organization [facility] Healthcare Address [address] [place] [address] Care Team Providers Care Repair Welder Name Role Phone No, Physician Primary Care Provider [phone] Reason for Visit * Reason Comments Ultrasound * Diagnostic Imaging (Routine) - Pending Review Specialty Diagnoses / Procedures Referred By Contac t Referred To Contact Diagnoses Ultrasound scan done for inability to hear heart tones Procedures US Ob Limited Heaven Hooks, SUPERVISOR MONEY ROOM [address] [facility] [address] [address] Phone: tel: fax: Referral ID Status Reason Start Date Expiration Date V isits Requested Visits Authorized [id number] Pending Review 05/20/2024 06/19/2025 1 1 Encounter Details Date Type Department Care Team (Latest Contact Info) Description 05/20/2024 1:30 PM CDT Ancillary Procedure [facility] [address] [facility] [address] [place] [id number] Ultrasound scan done for inability to hear [...] staff should administer the PHQ-9) 0 05/18/2024 [place] Depression Scale Answer Date Recorded [place] Depression Scale Total 10 05/20/2024 The thought of harming myself has occurred to me . 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 Gender Identity Not on file Sexual Orientation Not on file documented as of this encounter Plan of Treatment Not on file documented as of this encounter Procedures Procedure Name Priority Date/Time Associated Diagnosis Comments US OB LIMITED Schedule Routine, Read Routine (OP Routine) 05/20/2024 1:54 PM CDT Ultrasound scan done for inability to hear heart tones documented in this encounter Results * US Ob Limited (05/20/2024 1:54 PM CDT) Fetus# Fetus1 VIEWPOINT Placenta Details anterior, shared VIEWPOINT Presentation Vertex; Maternal left- low VIEWPOINT Fetus# Fetus2 VIEWPOINT Placenta Details anterior, shared VIEWPOINT Presentation Transverse high, right VIEWPOINT Anatomical Region Laterality Modality Abdomen N/A Ultrasound 05/20/2024 1:59 PM CDT Impressions 05/25/2024 12:48 PM CDT 1. ?? There is a monochorionic diamniotic twin gestation. ?Both babies have documented cardiac activity.2. ??Normal amount of amniotic fluid. Narrative Procedure Note Dia Mantilla MD - 05/25/2024 IMPRESSION: 1. There is a monochorionic diamniotic twin gestation. Both babieshave documented cardiac activity.2. Normal amount of amniotic fluid. us Heaven Hooks SUPERVISOR MONEY ROOM IMG OB US PROCEDURES Final Result documented in this encounter Visit Diagnoses Diagnosis Ultrasound scan done for inability to hear heart tones Abnormality in heart rate/rhythm, antepartum condition or complication documented in this encounter Care Teams Repair Welder Relationship Specialty Start Date End Date No, Physician PCP - General 02/25/24 documented as of this encounter
--- OUTSIDE RECORDS SUMMARY | 2024-10-06 03:42 | XMS_ITS | Encounter Summary ---
Author Organization [facility] Healthcare Address [address] [place] [address] Care Team Providers Care Senior Qa Automation Engineer Name Role Phone No, Physician Primary Care Provider [phone] Reason for Referral * Diagnostic Imaging (Routine) - Authorized Specialty Diagnoses / Procedures Referred By Contac t Referred To Contact Diagnoses Twin , unable to determine number of placenta and number of amniotic sacs, antepartum, unspecified trimester Maternal varicella, non-immune Supervision of high-risk , unspecified trimester Procedures US OB BPP with US Limited (C) Dia Mantilla MD [address] [place] [address] [address] BAUTISTA [address] [place] [address] Phone: tel: [facility] [id number] [place] [address] Referral ID Status Reason Start Date Expiration Date V isits Requested Visits Authorized [id number] Authorized 05/31/2024 06/30/2025 2 2 * Diagnostic Imaging (Routine) - Authorized Specialty Diagnoses / Procedures Referred By Contac t Referred To Contact Diagnoses Twin , unable to determine number of placenta and number of amniotic sacs, antepartum, unspecified trimester Maternal varicella, non-immune Supervision of high-risk , unspecified trimester Procedures US OB BPP with US Follow Up (C) Dia Mantilla MD [address] [place] [address] [address] BAUTISTA [address] [place] [address] Phone: tel: [facility] [address] [place] [address] Referral ID Status Reason Start Date Expiration Date V isits Requested Visits Authorized [id number] Authorized 05/31/2024 06/30/2025 2 2 * Diagnostic Imaging (Routine) - Authorized Specialty Diagnoses / Procedures Referred By Contac t Referred To Contact Diagnoses Twin , unable to determine number of placenta and number of amniotic sacs, antepartum, unspecified trimester Maternal varicella, non-immune Supervision of high-risk , unspecified trimester Procedures US OB Follow UP with US BPP with Dopplers (C) Dia Mantilla MD [address] [facility] [address] BAUTIST[address] [place] [address] Phone: tel: [facility] [phone] [place] [address] Referral ID Status Reason Start Date Expiration Date V isits Requested Visits Authorized [id number] Authorized 05/31/2024 06/30/2025 1 1 * Diagnostic Imaging (Routine) - Authorized Specialty Diagnoses / Procedures Referred By Contac t Referred To Contact Diagnoses Twin , unable to determine number of placenta and number of amniotic sacs, antepartum, unspecified trimester Maternal varicella, non-immune Supervision of high-risk , unspecified trimester Procedures US Ob Transvaginal Dia Mantilla MD [address] [place] [address] [address] BAUTISTA [address] [place] [address] Phone: tel: [facility] [phone] [place] [address] Referral ID Status Reason Start Date Expiration Date V isits Requested Visits Authorized [id number] Authorized 05/31/2024 06/30/2025 1 1 * Diagnostic Imaging (Routine) - Authorized Specialty Diagnoses / Procedures Referred By Contac t Referred To Contact Diagnoses Twin , unable to determine number of placenta and number of amniotic sacs, antepartum, unspecified trimester Maternal varicella, non-immune Supervision of high-risk , unspecified trimester Procedures US OB Follow up with Dopplers (C) Dia Mantilla MD [address] [place] [address] [address] BAUTISTA [address] [place] [address] Phone: tel: [facility] [address] [place] [address] Referral ID Status Reason Start Date Expiration Date V isits Requested Visits Authorized [id number] Authorized 05/31/2024 06/30/2025 1 1 Encounter Details Date Type Department Care Team (Late st Contact Info) Description 05/31/2024 Orders Only [facility] Maternal Medicine at [facility] [address] [facility] [address] [place] [phone] Byron Tellez MD [address] [address] Supervision of high-risk , unspecified trimester (Primary Dx); Twin , unable to determine number of placenta and number of amniotic sacs, antepartum, unspecified trimester; Maternal varicella, non-immune Social History Tobacco Use Types Packs/Day Years [...] staff should administer the PHQ-9) 0 05/18/2024 [place] Depression Scale Answer Date Recorded [place] Depression Scale Total 10 05/20/2024 The thought of harming myself has occurred to me . 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 Gender Identity Not on file Sexual Orientation Not on file documented as of this encounter Plan of Treatment Scheduled Orders Name Type Priority Associated Diagnoses Orde r Schedule US OB Follow up with Dopplers (C) Imaging Schedule Routine, Read Routine (OP Routine) Twin , unable to determine number of placenta and number of amniotic sacs, antepartum, unspecified trimester Maternal varicella, non-immune Supervision of high-risk , unspecified trimester Expected: 05/31/2024, Expires: 05/31/2025 US Ob Transvaginal Imaging Schedule Rout ine, Read Routine (OP Routine) Twin , unable to determine number of placenta and number of amniotic sacs, antepartum, unspecified trimester Maternal varicella, non-immune Supervision of high-risk , unspecified trimester Expected: 05/31/2024, Expires: 05/31/2025 US OB Follow UP with US BPP with Dopplers (C) Imaging Schedule Routine, Read Routine (OP Routine) Twin , unable to determine number of placenta and number of amniotic sacs, antepartum, unspecified trimester Maternal varicella, non-immune Supervision of high-risk , unspecified trimester Expected: 05/31/2024, Expires: 05/31/2025 US OB BPP with US Follow Up (C) Imaging Schedule Routine, Read Routine (OP Routine) Twin , unable to determine number of placenta and number of amniotic sacs, antepartum, unspecified trimester Maternal varicella, non-immune Supervision of high-risk , unspecified trimester 2 Occurrences starting 05/31/2024 until 05/31/2025 US OB BPP with US Limited (C) Imaging Schedule Routine, Read Routine (OP Routine) Twin , unable to determine number of placenta and number of amniotic sacs, antepartum, unspecified trimester Maternal varicella, non-immune Supervision of high-risk , unspecified trimester 2 Occurrences starting 05/31/2024 until 05/31/2025 documented as of this encounter Visit Diagnoses Diagnosis Supervision of high-risk , unspecified trimester- Primary Twin , unable to determine number of placenta and number of amniotic sacs, antepartum, unspecified trimester Maternal varicella, non-immune Supervision of other normal documented in this encounter Care Teams Senior Qa Automation Engineer Relationship Specialty Start Date End Date No, Physician PCP - General 02/25/24 documented as of this encounter
--- OUTSIDE RECORDS SUMMARY | 2024-10-06 03:42 | XMS_ITS | Encounter Summary ---
Author Organization [facility] Healthcare Address [address] [place] [address] Care Team Providers Care Engineering Operator Name Role Phone No, Physician Primary Care Provider [phone] Reason for Visit * Reason Comments Initial Consult Encounter Details Date Type Department Care Team (Late st Contact Info) Description 05/18/2024 1:00 PM CDT Office Visit [facility] Maternal Medicine at [facility] [address] [facility] [address] [place] [id number] Byron Tellez MD [address] [address] Unspecified high-risk (Primary Dx) Social [...] staff should administer the PHQ-9) 0 05/18/2024 Personal Safety Answer Date Recorded Getting School Help Needed Not on file 02/24 Comments Yes Sex and Gender Information Value Date Recorded Sex Assigned at Not on file 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 Gender Identity Not on file Sexual Orientation Not on file documented as of this encounter Last Filed Vital Signs Vital Sign Reading Time Taken Comments Blood Pressure 124/94 05/18/2024 2:04 PM CDT Pulse - - Temperature - - Respiratory Rate - - Oxygen Saturation - - Inhaled Oxygen Concentration - - Weight 123.4 kg (272 lb) 05/18/2024 2:04 PM CDT Height 167.6 cm (5' 6 ) 05/18/2024 1:35 PM CDT Body Mass Index 43.9 05/18/2024 1:35 PM CDT documented in this encounter Progress Notes * Byron Tellez MD - 05/18/2024 1:00 PM CDT Suki Leon (1995) is a new patient to the Maternal Medicine practice at [facility]. Suki Leon (1995) is a 29-year-old gravid 1 para 0 female who conceived spontaneously. Last normal menstrual period is uncertain. Ultrasound testing performed on March 22, 2024 revealed a twin with size consistent with 8 weeks and 1 day and an assigned estimated date of confinement of October 31, 2024. Suki Leon (1995) is currentlyat 16 weeks and 2 days based on 1st trimester ultrasound performed on March 22, 2024. Subsequent ultrasound testing at outside institution has demonstrated a monochorionic diamniotic twin . Suki Leon (1995) is referred to the Maternal Medicine practice here at [facility] for consultation and presumed co management of monochorionic diamniotic twin . Suki Leon (1995) primary financial representative is Dr. Dia Mantilla. Currently Suki Leon (1995) is planning delivery at [facility] under the care of Dr. Dia Mantilla. As indicated above Suki Leon (1995) conceived spontaneously with out clear-cut recollection of her last normal menstrual period. She was uncertain what day conception occurred. Her gestational age assignment is based on her 1st ultrasound. Today's ultrasound at 16 weeks and 2 days cannot help ascertain gestational age and we will [...] including kidney infections. These were frequent between 2014. She does report history of kidney [...] (1995) is going to discontinue nortriptyline it shouldbe tapered rather than discontinued abruptly. 3. History of migraine headaches. 4. History of anxiety . Currently Suki Leon (1995) is not on a specific therapy for her anxiety although her nortriptyline, prescribed for irritable bowel syndrome, may have some impacton her anxiety disorder. 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 She was . Her , Florentino Leon, [...] disorders and is not found to be carrierfor disorders that were screened including, but not [...] growth. It may also be early onset twin- twin transfusion without other indications of twin-twin transfusion such as fluid collections or ascites in twin A. As continues regular assessment of growth and anatomy is essential to identify the possibility of twin-twin transfusion as this may have a therapeutic intervention that may improve outcome. Currently there is no strategy to improve outcome when there is significant discordance of placental sharing. Today's ultrasound does not identify anystructural malformations in twin A or twin B. unfortunately the imaging was incomplete to conclude absolute absence of structural malformations. Detailed heart anatomy should be undertaken targeting a gestational age of 24 weeks. A return evaluation in 4 weeks to reassess anatomy is planned. Due to the potential for twin-twin transfusion reassessment in 2 weeks to monitor changes thatmay help identify twin-twin transfusion is planned. Testing by ultrasound to monitor the presence or absence of evidence of twin-twin transfusion is anticipated every 1-2 weeks at least through 32 weeks gestation. Therapeutic interventions such as laser photocoagulation of anastomotic blood vesselsmay be available up to 26 weeks gestation if evidence of severe twin-twin transfusion becomes apparent. 2. Maternal obesity. 3. History of recurrent urinary tract infections. This appears to be a resolved/quiescent historical problem. Today's urine dipstick did not indicate presence of a UTI. certainly can be associated with an increased risk of urinary tract infections and regular assessment of urine dipsticksat office visits should be undertaken to monitor evidence of urinary tract infection. Symptoms of urinary tract infection should be evaluated. 4. Twin growth discordance. Twin A today has an estimated weight of 202 g. This is above the 99th percentile for gestational age. Twin B has an estimated weight of 134 g. This is the 13thpercentile. The inter twin growth discordance is 34.6%. As indicated above this may be the result of twin-twin transfusion. It may also be the result of unequal placental sharing. No abnormalities offetal anatomy were identified in today's imaging. Ongoing serial assessments by ultrasound including assessments of growth, umbilical artery Doppler blood flow, middle cerebral artery Doppler blood flow will be necessary to identify changes that may reflect abnormalities of the physiology of twin A and twin B. This could include progressive growth restriction for twin B and it may we represent twin-twin transfusion that may require laser photocoagulation. In today's evaluation and discussion regarding Suki E Leon (1995) current we had long discussions [...] that may occur in twin pregnancies due tothe large volume of the uterus. Today I did suggest that Suki E Edward (1995) obtain a copy of Dr. Carin [...] ultrasound in 2 weeks. As indicated above dueto the surveillance necessary for identifying twin-twin transfusion ultrasound evaluation every 1-2weeks will be planned at least through 32 weeks gestation. Global care continues with Dr. Dia Mantilla. Routine complications of , routine visits, hospitalization, labor, delivery, and care our anticipated with Dr. Dia Mantilla. Sukiletty Leon (1995) is highly complicated with multiple [...] any separately reportable services. Voice recognition software [employer] was used to dictate and transcribe this document.Box Stacker variances may occur. Despite proof reading, typographical errors may occur. documented in this encounter Plan of Treatment Not on file documented as of this encounter Procedures Procedure Name Priority Date/Time Associated Diagnosis Comments POCT URINALYSIS DIPSTICK Routine 05/18/2024 1:12 PM CDT Unspecified high-risk documented in this encounter Results * (ABNORMAL) POCT urinalysis dipstick (05/18/2024 1:12 PM CDT) Glucose, ur, POC Negative Negative MG/DL Bilirubin, ur, POC Negative Negative, Small, Moderate, Large Ketones, ur, POC Negative Negative Specific [place], POC 1.010 1.003 - 1.030 Blood, ur, POC Negative Negative pH, ur, POC 7.0 5.0 - 8.0 Protein, ur, POC Negative Negative Urobilinogen, urine, POC 0.2 0.2 - 1.0 mg/dL Nitrite, ur, POC Negative Negative Leukocytes, ur, POC Small(A) Negative Lot Number [id number] Urine 05/18/2024 1:12 PM CDT Byron Tellez MD POINT OF CARE TEST ORDERABLES Final Result documented in this encounter Visit Diagnoses Diagnosis Unspecified high-risk - Primary documented in this encounter Discontinued Medications Medication Sig Discontinue Reason Start Date End Da te aspirin 81 mg enteric coated tablet Take 1 tablet (81 mg total) by mouth daily Duplicate order 05/18/2024 documented as of this encounter Historical Medications * This list may reflect changes made after this encounter. no115/iron/folic acid ( 19 ORAL) Take by mouth aspirin 81 mg enteric coated tablet Take 1 tablet (81 mg total) by mouth daily 05/18/2024 added in this encounter Care Teams Engineering Operator Relationship Specialty Start Date End Date No, Physician PCP - General 02/25/24 documented as of this encounter
--- OUTSIDE RECORDS SUMMARY | 2024-10-06 03:42 | XMS_ITS | Encounter Summary ---
Author Organization [facility] Healthcare Address [address] [place] [address] Care Team Providers Care Telesales Advisor Name Role Phone No, Physician Primary Care Provider [phone] Reason for Visit * Reason Comments Initial Visit Encounter Details Date Type Department Care Team (Late st Contact Info) Description 04/15/2024 3:15 PM CDT Initial [facility] [address] [place] [address] [address] [place] [id number] Dia Mantilla MD 4 [facility] [address] [place] [address] GA: [id number] Social History Tobacco Use Types Packs/Day Years [...] staff should administer the PHQ-9) 0 05/18/2024 Lisman Depression Scale Answer Date Recorded Lisman Depression Scale Total 10 05/20/2024 The thought of harming myself has occurred to me . 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 Gender Identity Not on file Sexual Orientation Not on file documented as of this encounter Last Filed Vital Signs Vital Sign Reading Time Taken Comments Blood Pressure 124/86 04/15/2024 2:55 PM CDT Pulse - - Temperature - - Respiratory Rate - - Oxygen Saturation - - Inhaled Oxygen Concentration - - Weight 123.8 kg (273 lb) 04/15/2024 2:55 PM CDT Height 167.6 cm (5' 6 ) 04/15/2024 2:55 PM CDT Body Mass Index 44.06 04/15/2024 2:55 PM CDT documented in this encounter Ordered Prescriptions Prescription Sig Dispense Quantity Refills Last Filled Start Date End Date aspirin 81 mg chewable tablet Take 1 tablet (81 mg total) by mouth daily 30 tablet 11 04/15/2024 09/22/2024 documented in this encounter Progress Notes * Dia Mantilla MD - 04/15/2024 3:15 PM CDT Images from the original note [...] found out that that would be in [place] he used an expletive to express that [...] in 4 weeks. Dia Mantilla MD 04/15/2024 documented in this encounter Miscellaneous Notes * Assessment & Plan Note - Dia Mantilla MD - 04/15/2024 5:51 PM CDTAssociated Problem(s): Twin , unable to determine number of placenta and number of amniotic sacs, antepartum, unspecified trimester To ultrasound at her next appointment to see if the chronicity can not be determined. Will plan to do ultrasound prior to each visit for heart tone We discussed that if she is not that I will be recommending MFM consult When the patient's found out that that would be in [place] he used an expletive to express that they would not be doing that * Assessment & Plan Note - Dia Mantilla MD - 04/15/2024 5:51 PM CDTAssociated Problem(s): BMI 40.0-44.9, adult (HCC) She will require serial ultrasounds and NSTs in the 3rd trimester to hemoglobin A1c We did not discuss weight gain during and will need to do so at her next visit * Assessment & Plan Note - Dia Mantilla MD - 04/15/2024 3:31 PM CDTAssociated Problem(s): Anxiety disorder We discussed that this antidepressant is not [...] have been used, just as a precaution. * Assessment & Plan Note - Dia Mantilla MD - 04/15/2024 3:30 PM CDTAssociated Problem(s): IBS (irritable bowel syndrome) She is controlled on the nortriptyline Her pcp gives it to her We discussed that it has not been linked to defects, but withdrawal is a possibility We dicussed taking the smallest dose possible or getting off We discussed the is usually constipating and her bowels maybe more normal with She will talk to her pcp * Addendum Note - James Hallman - 04/15/2024 3:15 PM CDTAddended by: JAMES HALLMAN on: 05/20/2024 11:13 AM Modules accepted: Orders documented in this encounter Plan of Treatment Scheduled Orders Name Type Priority Associated Diagnoses Orde r Schedule US Ob FU Twins Imaging Schedule Routine , Read Routine (OP Routine) Twin , unable to determine number of placenta and number of amniotic sacs, antepartum, unspecified trimester Expected: 04/15/2024, Expires: 04/15/2025 documented as of this encounter Results * Urine culture Urine, clean voided (05/20/2024 2:47 PM CDT) Report Final Report: Less than 100,000 colonies/mL (clinically insignificant growth based on current clinical standards) Comment:Testing performed by : [facility], [address] [facility] [place]., [address] Organism (CLINICALLY INSIGNIFICANT GROWTH BIA SWEET Urine, clean voided 05/20/2024 2:47 PM CDT 05/20/2024 7:35 PM CDT Narrative BIA SWEET - 05/22/2024 9:59 AM CDT Testing performed by [facility] Microbiology Laboratory ([phone]) us Dia Mantilla MD LAB MICROBIOLOGY - GENERAL ORDERABLES Final Result BIA SWEET [address] [employer] [place], [place] [id number] * (ABNORMAL) Vitamin D 25 hydroxy (05/20/2024 2:47 PM CDT) Pathologist [facility] Vitamin D 25-OH 20(L) 30 - 80 ng/mL Blood 05/20/2024 2:47 PM CDT 05/20/2024 3:12 PM CDT Dia Mantilla MD LAB BLOOD ORDERABLE S Final Result Performing Organization Address City/[facility] Co de Phone Number BIA [phone] [place] [address] * (ABNORMAL) Varicella Zoster IgG antibody Blood (05/20/2024 2:47 PM CDT) [facility] VZV IgG Equivocal( A) Reactive Comment: Equivocal: Presence or absence of detectable antibodies to Varicella-zoster virus cannot be determined. ??Submit new specimen if clinically indicated. Testing performed by: [facility], [address] [place] [address], [place]., [address] Blood 05/20/2024 2:47 PM CDT 05/21/2024 5:11 PM CDT Dia Mantilla MD LAB MICROBIOLOGY - GENERAL ORDERABLES Final Result Performing Organization Address City/[facility] Co de Phone Number BIA [address] Department of [employer] [place], [place] [id number] * Rubella IgG antibody Blood (05/20/2024 2:47 PM CDT) Pathologist [facility] Rubella IgG Reactive Comment: Reactive: Results suggest response to immunization or prior exposure to the virus. Testing performed by: [facility], [address] [place] [address]., [address] Blood 05/20/2024 2:47 PM CDT 05/21/2024 5:11 PM CDT Dia Mantilla MD LAB MICROBIOLOGY - GENERAL ORDERABLES Final Result Performing Organization Address [facility] Co de Phone Number BIA SWEET [address] [address] [facility] [employer] [address] * RPR Blood (05/20/2024 2:47 PM CDT) RPR Nonreactive Nonreactive Blood 05/20/2024 2:47 PM CDT 05/20/2024 3:12 PM CDT Result [facility] Dia Mnatilla MD LAB MICROBIOLOGY - GENERAL ORDERABLES Final Result Performing Organization Address [facility] de Phone Number BIA SWEET [address] [facility] [place] [address] * HIV 1/2 Antibody plus p24 Antigen Blood (05/20/2024 2:47 PM CDT) Pathologist [facility] HIV 1/2 ab + p24 ag Nonreactive Nonreactive Comment: Nonreactive for HIV-1 antigen and HIV-1/HIV-2 antibodies. No laboratory evidence of HIV infection. If acute HIV infection is suspected, consider testing for HIV-1 RNA. Blood 05/20/2024 2:4 7 PM CDT 05/20/2024 3:12 PM CDT Result [facility] Dia Mantilla MD LAB MICROBIOLOGY - GENERAL ORDERABLES Final Result Performing Organization Address [facility] de Phone Number BIA SWEET [address] [facility] [place] [address] * Hepatitis C antibody Blood (05/20/2024 2:47 PM CDT) Pathologist [facility] Hep C Ab Nonreactive Nonreactive Comment: [...] GENERAL ORDERABLES Final Result Performing Organization Address [facility] Co de Phone Number BIA [address] [address] [facility] [employer] [address] * Hepatitis B Surface Antigen Blood (05/20/2024 2:47 PM CDT) HepBsAg Nonreactive Nonreactive Blood 05/20/2024 2:47 PM CDT 05/20/2024 3:12 PM CDT Dia Mantilla MD LAB MICROBIOLOGY - GENERAL ORDERABLES Final Result Performing Organization Address [facility] de Phone Number BIA [address] [address] [facility] [place] [address] * Drugs of Abuse Screen, Urine without Confirmation (05/20/2024 2:47 PM CDT) Amphetamine, ur Not Detected CutOff 500ng/mL Comment: Interpretive Data - Amphetamines: ??Samples containing greater than 500 ng/mL d-methamphetamine ??or other cross-reacting amphetamine compounds are reported as positive. ??Amphetamine immunoassays are subject to significant false positive rates due to cross-reactivity of non-amphetamine drugs. Confirmatory testing required for definitive results. Current Interpretive Data was last reviewed 2023. Barbiturates, ur Not Detected CutOff 200ng/mL BIA Comment: Interpretive Data - Barbiturates: ??Samples containing greater than 200 ng/mL secobarbital or other cross-reacting barbiturate compounds are reported as positive. ??False positive and false negative results are possible. Confirmatory testing required for definitive results. Current Interpretive Data was last reviewed 2023. Benzodiazepines, ur Not Detected CutOff 100ng/mL BIA Comment: Interpretive Data - Benzodiazepines: ??Samples containing greater than 100 ng/mL nordiazepam or other cross-reacting compounds are reported as positive. False positive and false negative results are possible. Confirmatory testing required for definitive results. Current Interpretive Data was last reviewed 2023. Cannabinoids, ur Not Detected CutOff 50 ng/mL CERNER Comment: Interpretive Data - Cannabinoids: ??Samples containing greater than 50 ng/mL delta-9 THC -COOH or other cross-reacting compounds are reported as positive. ??False positive and false negative results are possible. ??Confirmatory testing required for definitive results. Current Interpretive Data was last reviewed 2023. Cocaine, ur Not Detected CutOff 150ng/mL CERNER Comment: Interpretive Data - Cocaine: ??Samples containing greater than 150 ng/mL benzoylecgonine or other cross-reacting compounds are reported as positive. False positive and false negative results are possible. Confirmatory testing required for definitive results. Current Interpretive Data was last reviewed 2023. Fentanyl, Ur Not Detected CutOff 5 ng/mL CERNER Comment: Interpretive Data - Fentanyl: ?? Samples containing greater than 5 ng/mL norfentanyl, fentanyl, or other cross-reacting fentanyl compounds are reported as positive. False positive and false negative results are possible. Confirmatory testing required for definitive results. Current Interpretive Data was last reviewed 2024. Methadone, ur Not Detected CutOff 300ng/mL CERNER Comment: Interpretive Data - Methadone: ??Samples containing greater than 300 ng/mL d,l-methadone or other cross-reacting compounds are reported as positive. ??False positive and false negative results are possible. Confirmatory testing required for definitive results. Current Interpretive Data was last reviewed 2023. Opiates, ur Not Detected CutOff 300ng/mL CERNER Comment: Interpretive Data - Opiates: ??Samples containing greater than 300 ng/mL morphine or other cross-reacting compounds are reported as positive. ??False positive and false negative results are possible. Confirmatory testing required for definitive results. Current Interpretive Data was last reviewed 2023. Oxycodone, ur Not Detected CutOff 100ng/mL CERNER Comment: Interpretive Data - Oxycodone: ??Samples containing greater than 100 ng/mL oxycodone or other cross-reacting compounds are reported as ??positive. ??False positive and false negative results are possible. Confirmatory testing required for definitive results. Current Interpretive Data was last reviewed 2023. Phencyclidine, ur Not Detected CutOff 25 ng/mL BIA Comment: Interpretive Data - Phencyclidine: ??Samples containing greater than 25 ng/mL phencyclidine or other cross-reacting compounds are reported as positive. ??False positive and false negative results are possible. Confirmatory testing required for definitive results. Current Interpretive Data was last reviewed 2023. Urine Creatinine 196 mg/dL BIA Comment: Interpretive Data Urine Creatinine: < 10 mg/dL is extremely dilute = or > 10 but < 20 mg/dL is dilute = or > 20 mg/dL is normal Current Interpretive Data was last revised on 2017. Urine 05/20/2024 2:4 7 PM CDT 05/20/2024 3:12 PM CDT Narrative [facility] - 05/20/2024 7:58 PM CDT Drug of Abuse screening is performed by immunoassay for medical purposes only. ??This is not to be used for Pain Management purposes. us Dia Mantilla MD LAB URINE ORDERABLE S Final Result [facility] [address] Department [place] [address] * CBC with auto differential (05/20/2024 2:47 PM CDT) WBC 8.0 3.8 - 9.9 K/cumm Hgb 13.4 11.9 - 15.5 g/dL [facility] Hct 39.4 35.6 - 45.5 % [facility] Plt 324 150 - 400 K/cumm [facility] MPV 9.8 9.1 - 12.3 fL [facility] RBC 4.49 3.90 - 5.20 M/cumm [facility] MCV 87.8 81.3 - 96.4 fL [facility] MCH 29.8 27.1 - 33.3 pg [facility] MCHC 34.0 32.3 - 35.7 g/dL [facility] RDW CV 13.7 11.1 - 14.9 % [facility] RDW SD 43.9 35.7 - 48.1 fL [facility] NRBC abs 0.00 0.00 - 0.01 K/cumm BIA Blood 05/20/2024 2:47 PM CDT 05/20/2024 3:12 PM CDT Dia Mantilla MD LAB BLOOD ORDERABLE S Final Result Performing Organization Address [facility] de Phone Number [facility] [address] Department [place] [address] * Hemoglobin A1c (05/20/2024 2:47 PM CDT) Hgb A1C 4.6 4.0 - 5.6 % Estimated Average Glucose 85 mg/dL BIA Comment: The ADA recommends reporting an estimated Average Glucose (eAG) with all Hemoglobin A1c results using the equation derived from a study of 507 normal and diabetic adults. ??Minority populations were underrepresented and children were not included. ?? (Diabetes Care 31:0857-2061, 2008). ??The eAG is not equivalent to a fasting glucose. Blood 05/20/2024 2:47 PM CDT 05/20/2024 3:12 PM CDT Dia Mantilla MD LAB BLOOD ORDERABLE S Final Result Performing Organization Address [facility] de Phone Number [facility] [address] [place] [address] documented in this encounter Visit Diagnoses Diagnosis Encounter for supervision of normal first in first trimester- Primary 11 weeks gestation of Long-term current use of antidepressant Irritable bowel syndrome with diarrhea Irritable bowel syndrome Other specified anxiety disorders Twin , unable to determine number of placenta and number of amniotic sacs, antepartum, unspecified trimester Encounter for supervision of normal first in first trimester 11 weeks gestation of documented in this encounter Historical Medications * This list may reflect changes made after this encounter. escitalopram (LEXAPRO) 20 mg tablet Take 1 tablet (20 mg total) by mouth daily 03/29/2024 06/15/2024 nortriptyline (PAMELOR) 10 mg capsule 04/04/2024 06/15/2024 added in this encounter Care Teams Telesales Advisor Relationship Specialty Start Date End Date No, Physician PCP - General 02/25/24 documented as of this encounter
--- OUTSIDE RECORDS SUMMARY | 2024-10-06 03:42 | XMS_ITS | Encounter Summary ---
Author Organization [facility] Healthcare Address [address] [place] [address] Care Team Providers Care Mathematical Technician Name Role Phone No, Physician Primary Care Provider [phone] Encounter Details Date Type Department Care Team (Late st Contact Info) Description 03/14/2024 Telephone [facility] 4 [facility] [address] [place] [address] Dia Mantilla MD 4 [facility] [address] [place] [address] Social History Tobacco Use Types Packs/Day Years Used Date Smoking Tobacco: Never Personal Safety Answer Date Recorded Getting School Help Needed Not on file 02/24 Comments Unknown Sex and Gender Information Value Date Recorded Sex Assigned at Not on file 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 has surgery the morning of 04/15, so her NOB needs to be moved elsewhere. documented in this encounter Plan of Treatment Not on file documented as of this encounter Visit Diagnoses Not on filedocumented in this encounter Care Teams Mathematical Technician Relationship Specialty Start Date End Date Sunni Physician PCP - General 02/25/24 documented as of this encounter
--- OUTSIDE RECORDS SUMMARY | 2024-10-06 03:42 | XMS_ITS | Encounter Summary ---
Author Organization [facility] Healthcare Address [address] [place] [address] Care Team Providers Care Vp Strategic Partnerships Name Role Phone No, Physician Primary Care Provider [phone] Encounter Details Date Type Department Care Team (Late st Contact Info) Description 04/27/2024 Telephone [facility] [address] [facility] [address] [place] [address] Dia Mantilla MD [address] [place] [address] Social History Tobacco Use Types Packs/Day [...] more drinks on one occasion? 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 Gender Identity Not on file Sexual Orientation Not on file documented as of this encounter Miscellaneous Notes * Telephone Encounter - Tash Pierce MA - 04/27/2024 11:06 AM CDT Received Myriad Results: Foresight, Carrier Screen: Negative Prequel, Screen: Negative Predicted Twin Sex: Male/Male Dr Mantilla Next scheduled ABDON 05/13/2024 w/ [facility] Scanned into media for your review Thank you Tash documented in this encounter Plan of Treatment Not on file documented as of this encounter Visit Diagnoses Not on filedocumented in this encounter Care Teams Vp Strategic Partnerships Relationship Specialty Start Date End Date No, Physician PCP - General 02/25/24 documented as of this encounter
--- OUTSIDE RECORDS SUMMARY | 2024-10-06 03:42 | XMS_ITS | Encounter Summary ---
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 documented in this encounter Plan of Treatment Not on file documented as of this encounter Visit Diagnoses Not on filedocumented in this encounter Care Teams Buttonholer Relationship Specialty Start Date End Date No, Physician PCP - General 02/25/24 documented as of this encounter
--- OUTSIDE RECORDS SUMMARY | 2024-10-06 03:42 | XMS_ITS | Encounter Summary ---
Author Organization [facility] Healthcare Address [address] [place] [address] Care Team Providers Care Technical Services Specialist Name Role Phone No, Physician Primary Care Provider [phone] Reason for Referral * Diagnostic Imaging (Routine) - Closed Specialty Diagnoses / Procedures Referred By Contac t Referred To Contact Diagnoses BMI 40.0-44.9, adult (HCC) Irritable bowel syndrome, unspecified type Monochorionic diamniotic twin , antepartum Long-term current use of antidepressant Anxiety disorder, unspecified type Procedures US OB Detail Anatomy with US Transvaginal (C) Dia Mantilla MD [address] [place] [address] [address] BAUTISTA [address] [place] [address] Phone: tel: [facility] [address] [place] [address] Referral ID Status Reason Start Date Expiration Date Visits Re quested Visits Authorized [id number] Closed 05/18/2024 06/17/2025 1 1 * Diagnostic Imaging (Routine) - Closed Specialty Diagnoses / Procedures Referred By Contac t Referred To Contact Diagnoses BMI 40.0-44.9, adult (HCC) Irritable bowel syndrome, unspecified type Monochorionic diamniotic twin , antepartum Long-term current use of antidepressant Anxiety disorder, unspecified type Procedures US Umbilical Artery Doppler Dia Mantilla MD [address] [place] [address] DR BAUTISTA [address] [place] [address] Phone: tel: [facility] [address] [place] [address] Referral ID Status Reason Start Date Expiration Date Visits Re quested Visits Authorized [id number] Closed 05/18/2024 06/17/2025 4 4 * Diagnostic Imaging (Routine) - Authorized Specialty Diagnoses / Procedures Referred By Contac t Referred To Contact Diagnoses BMI 40.0-44.9, adult (HCC) Irritable bowel syndrome, unspecified type Monochorionic diamniotic twin , antepartum Long-term current use of antidepressant Anxiety disorder, unspecified type Procedures US Ob Transvaginal Dia Mantilla MD [address] [facility] [address] BAUTISTA [address] [place] [address] Phone: tel: [facility] [address] [place] [address] Referral ID Status Reason Start Date Expiration Date V isits Requested Visits Authorized [id number] Authorized 05/18/2024 06/17/2025 4 4 * Diagnostic Imaging (Routine) - Closed Specialty Diagnoses / Procedures Referred By Contac t Referred To Contact Diagnoses BMI 40.0-44.9, adult (HCC) Irritable bowel syndrome, unspecified type Monochorionic diamniotic twin , antepartum Long-term current use of antidepressant Anxiety disorder, unspecified type Procedures US OB Limited with Dopplers (C) Dia Mantilla MD [address] [facility] [address] BAUTISTA [address] [place] [address] Phone: tel: [facility] [address] [place] [address] Referral ID Status Reason Start Date Expiration Date Visits Re quested Visits Authorized [id number] Closed 05/18/2024 06/17/2025 3 3 Encounter Details Date Type Department Care Team (Late st Contact Info) Description 05/18/2024 Orders Only [facility] [address] [facility] [address] [place] [id number] [place], Francine Monochorionic diamniotic twin , antepartum (Primary Dx); BMI 40.0-44.9, adult (HCC); Irritable bowel syndrome, unspecified type; Twin , unable to determine number of placenta and number of amniotic sacs, antepartum, unspecified trimester; Long-term current use of antidepressant; Anxiety disorder, [...] on file 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 Gender Identity Not on file Sexual Orientation Not on file documented as of this encounter Plan of Treatment Scheduled Orders Name Type Priority Associated Diagnoses Orde r Schedule US OB Limited with Dopplers (C) Imaging Schedule Routine, Read Routine (OP Routine) BMI 40.0-44.9, adult (HCC) Irritable bowel syndrome, unspecified type Monochorionic diamniotic twin , antepartum Long-term current use of antidepressant Anxiety disorder, unspecified type 3 Occurrences starting 05/18/2024 until 11/18/2024 US Ob Transvaginal Imaging Schedule Rout ine, Read Routine (OP Routine) BMI 40.0-44.9, adult (HCC) Irritable bowel syndrome, unspecified type Monochorionic diamniotic twin , antepartum Long-term current use of antidepressant Anxiety disorder, unspecified type 4 Occurrences starting 05/18/2024 until 11/18/2024 US Umbilical Artery Doppler Imaging Schedule Routine, Read Routine (OP Routine) BMI 40.0-44.9, adult (HCC) Irritable bowel syndrome, unspecified type Monochorionic diamniotic twin , antepartum Long-term current use of antidepressant Anxiety disorder, unspecified type 4 Occurrences starting 05/18/2024 until 11/18/2024 documented as of this encounter Results * US OB Detail Anatomy with US Transvaginal (C) (06/15/2024 2:04 PM CDT) Fetus# Fetus1 VIEWPOINT Estimated Weight 428 g&grams VIEWPOINT Placenta Details anterior VIEWPOINT Presentation Vertex; Maternal left- low VIEWPOINT Fetus# Fetus2 VIEWPOINT Estimated Weight 338 g&grams VIEWPOINT Placenta Details anterior VIEWPOINT Presentation Transverse high maternal right VIEWPOINT Anatomical Region Laterality Modality Abdomen N/A Ultrasound 06/15/2024 11:3 5 AM CDT Impressions 06/15/2024 2:54 PM CDT Monochorionic diamniotic twin at 20 weeks and 2 days in vertex and transverse presentations for twin A and twin B respectively. ??The amniotic fluid is normal in each gestational sac. ??The heart rates were normal in both twins. ??There is a single anterior placenta with thin intervening membrane most consistent with monochorionic diamniotic placentation. ??The inter twin growth discordance is 21.1%.Twin A is in vertex presentation. ??Twin A has an anterior placenta. ??The deepest vertical pocket of amniotic fluid in the gestational sac of twin A measures 4.6 cm. ??Growth of twin A is evaluated. ??The estimated weight of twin A is 428 g. ??This is the 95th percentile for assigned gestational age. ??The interval growth has been appropriate. ??The detailed anatomic survey is performed. ??No abnormalities of anatomy are identified in twin A. ??While reassuring ultrasound can not identify all defects. ??Umbilical artery Doppler blood flow in twin A is normal with a pulsatility index of 1.17. ??There is no evidence of increased placental vascular resistance in twin A. ??Middle cerebral artery Doppler blood flow in twin A is normal with a peak systolic velocity of the middle cerebral artery of 25.51 centimeters/second. ??This is 0.99 multiples of the median. ??There was no evidence of cephalic blood flow shunting. ??There is no evidence of acute or severe twin- twin transfusion in twin A. ??There is no evidence of twin anemia polycythemia in twin A.Twin B is in transverse presentation. ??Twin B has an anterior placenta. ??The deepest vertical pocket of amniotic fluid in the gestational sac of twin B measures 3.2 cm. ??Growth of twin B is evaluated. ??The estimated weight of twin B is 338 g. ??This is the 39th percentile for assigned gestational age. ??The detailed anatomic survey is performed on twin B. ??No abnormalities of anatomy are detected in twin B. ??While reassuring ultrasound can not identify all defects. ??Umbilical artery Doppler blood flow in twin B is normal with a pulsatility index of 1.48. ??There is no evidence of increased placental resistance in twin B. middle cerebral artery Doppler blood flow in twin B is normal with a peak systolic velocity in the middle cerebral artery of 30.54 centimeters/second. ??This is 1.18 multiples of the median. ??There is no evidence of cephalic blood flow shunting in twin B. there is no evidence of acute or severe twin-twin transfusion in twin B. there is no evidence of twin anemia polycythemia in twin B.The cervix is evaluated by transvaginal ultrasonography. ??Cervical length is 39.1 mm. ??There is no endocervical funneling. ??Cervical length has decreased slightly but remains in the normal cervical length range. ??Clinical correlation is recommended. Narrative Procedure Note Byron Tellez MD - 06/15/2024 IMPRESSION: Monochorionic diamniotic twin at 20 weeks and 2 days in vertexand transverse presentations for twin A and twin B respectively. Theamniotic fluid is normal in each gestational sac. The heart rateswere normal in both twins. There is a single anterior placenta with thinintervening membrane most consistent with monochorionic diamnioticplacentation. The inter twin growth discordance is 21.1%.Twin A is invertex presentation. Twin A has an anterior placenta. The deepestvertical pocket of amniotic fluid in the gestational sac of twin Ameasures 4.6 cm. Growth of twin A is evaluated. The estimated fetalweight of twin A is 428 g. This is the 95th percentile for assignedgestational age. The interval growth has been appropriate. Thedetailed anatomic survey is performed. No abnormalities of fetalanatomy are identified in twin A. While reassuring ultrasound can notidentify all defects. Umbilical artery Doppler blood flow in twin Ais normal with a pulsatility index of 1.17. There is no evidence of increasedplacental vascular resistance in twin A. Middle cerebral artery Dopplerblood flow in twin A is normal with a peak systolic velocity of the middlecerebral artery of 25.51 centimeters/second. This is 0.99 multiples ofthe median. There was no evidence of cephalic blood flow shunting. Thereis no evidence of acute or severe twin-twin transfusion in twin A. Thereis no evidence of twin anemia polycythemia in twin A.Twin B is intransverse presentation. Twin B has an anterior placenta. The deepestvertical pocket of amniotic fluid in the gestational sac of twin Bmeasures 3.2 cm. Growth of twin B is evaluated. The estimated fetalweight of twin B is 338 g. This is the 39th percentile for assignedgestational age. The detailed anatomic survey is performed on twinB. No abnormalities of anatomy are detected in twin B. Whilereassuring ultrasound can not identify all defects. Umbilical artery Doppler blood flow in twin B is normal with a pulsatility index of1.48. There is no evidence of increased placental resistance in twin B.middle cerebral artery Doppler blood flow in twin B is normal with a peaksystolic velocity in the middle cerebral artery of 30.54centimeters/second. This is 1.18 multiples of the median. There is noevidence of cephalic blood flow shunting in twin B. there is no evidenceof acute or severe twin-twin transfusion in twin B. there is no evidenceof twin anemia polycythemia in twin B.The cervix is evaluated bytransvaginal ultrasonography. Cervical length is 39.1 mm. There is noendocervical funneling. Cervical length has decreased slightly butremains in the normal cervical length range. Clinical correlation isrecommended. us Dia Mantilla MD IMG OB US PROCEDURE S Final Result documented in this encounter Visit Diagnoses Diagnosis Monochorionic diamniotic twin , antepartum- Primary BMI 40.0-44.9, adult (HCC) Irritable bowel syndrome, unspecified type Twin , unable to determine number of placenta and number of amniotic sacs, antepartum, unspecified trimester Long-term current use of antidepressant Anxiety disorder, unspecified type BMI 40.0-44.9, adult (HCC) Irritable bowel syndrome, unspecified type Monochorionic diamniotic twin , antepartum Long-term current use of antidepressant Anxiety disorder, unspecified type documented in this encounter Care Teams Technical Services Specialist Relationship Specialty Start Date End Date No, Physician PCP - General 02/25/24 documented as of this encounter
--- OUTSIDE RECORDS SUMMARY | 2024-10-06 03:42 | XMS_ITS | Encounter Summary ---
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
--- OUTSIDE RECORDS SUMMARY | 2024-10-06 03:42 | XMS_ITS | Encounter Summary ---
Author Organization [facility] Healthcare Address [address] [place] [address] Care Team Providers Care Road Commissioner Name Role Phone No, Physician Primary Care Provider [phone] Reason for Visit * Reason Onset Date Comments Ultrasound 05/10/2024 Encounter Details Date Type Department Care Team (Late st Contact Info) Description 05/10/2024 Telephone [facility] [address] [facility] [address] [place] [address] Dia Mantilla MD [address] [place] [address] [address] [place] [address] Ultrasound Social History Tobacco Use Types Packs/Day Years [...] on file 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 She has an appointment soon with Dr. Tellez. documented in this encounter Plan of Treatment Not on file documented as of this encounter Visit Diagnoses Not on filedocumented in this encounter Care Teams Road Commissioner Relationship Specialty Start Date End Date No, Physician PCP - General 02/25/24 documented as of this encounter
--- OUTSIDE RECORDS SUMMARY | 2024-10-06 03:42 | XMS_ITS | Encounter Summary ---
Author Organization [facility] Healthcare Address [address] [place] [address] Care Team Providers Care Quantitative Software Engineer Name Role Phone No, Physician Primary Care Provider [phone] Reason for Visit * Reason Comments Follow-up Encounter Details Date Type Department Care Team (Late st Contact Info) Description 05/31/2024 1:30 PM CDT Office Visit [facility] [address] [facility] [address] [place] [phone] Nancy Be, SALES MANAGEMENT TRAINEE [address] [facility] [address] [place] [address] Supervision of high-risk , second trimester (Primary Dx) Social History Tobacco Use Types [...] staff should administer the PHQ-9) 0 05/18/2024 Austin Depression Scale Answer Date Recorded Austin Depression Scale Total 10 05/20/2024 The thought of harming myself has occurred to me . 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 Gender Identity Not on file Sexual Orientation Not on file documented as of this encounter Last Filed Vital Signs Vital Sign Reading Time Taken Comments Blood Pressure 130/86 05/31/2024 12:40 PM CDT Pulse - - Temperature - - Respiratory Rate - - Oxygen Saturation - - Inhaled Oxygen Concentration - - Weight 125.2 kg (276 lb) 05/31/2024 12:40 PM CDT Height 167.6 cm (5' 5.98 ) 05/31/2024 12:40 PM C DT Body Mass Index 44.57 05/31/2024 12:40 PM CDT documented in this encounter Ordered Prescriptions Prescription Sig Dispense Quantity Refills Last Filled Start Date End Date metoclopramide (REGLAN) 10 mg tablet Take 1 tablet (10 mg total) by mouth 4 (four) times a day as needed (nausea) 30 tablet 1 05/31/2024 09/22/2024 documented in this encounter Progress Notes * Nancy Be, KENTRELL - 05/31/2024 1:30 PM CDT Images from the original note were not included. Subjective/Objective Patient ID: Suki Leon is a 29 y.o. female. Chief Complaint Chief Complaint Patient presents with Follow-up HPI Suki returns to the [facility] office at 16 weeks and 2 days gestation. She is a patient of Dr. Mantilla and is being seen for mono-di twins. She has a history of IBS which is controlled on nortriptyline byher PCP. In addition to IBS, she has [...] 44.57 kg/m?? Ultrasound: Consultative Impressions and Recommendations: [age] y.o. @ 162d , 10/31/24 - primary OB is Dr. Mantilla, [facility] -Received [facility] Results: Foresight, Carrier Screen: [...] any separately reportable services. Nancy Be NP documented in this encounter Plan of Treatment Not on file documented as of this encounter Procedures Procedure Name Priority Date/Time Associated Diagnosis Comments POCT URINALYSIS DIPSTICK Routine 05/31/2024 12:41 PM CDT Supervision of high-risk , second trimester documented in this encounter Results * (ABNORMAL) POCT urinalysis dipstick (05/31/2024 12:41 PM CDT) Glucose, ur, POC Negative Negative MG/DL Bilirubin, ur, POC Negative Negative, Small, Moderate, Large Ketones, ur, POC 15.(A) Negative Specific [place], POC 1.025 1.003 - 1.030 Blood, ur, POC Negative Negative pH, ur, POC 6.0 5.0 - 8.0 Protein, ur, POC Trace(A) Negative Urobilinogen, urine, POC 0.2 0.2 - 1.0 mg/dL Nitrite, ur, POC Negative Negative Leukocytes, ur, POC Negative Negative Lot Number [id number] Urine 05/31/2024 12:4 1 PM CDT Nancy Be NP POINT OF CARE TEST ORD ERABLES Final Result documented in this encounter Visit Diagnoses Diagnosis Supervision of high-risk , second trimester- Primary documented in this encounter Care Teams Quantitative Software Engineer Relationship Specialty Start Date End Date No, Physician PCP - General 02/25/24 documented as of this encounter
--- OUTSIDE RECORDS SUMMARY | 2024-10-06 03:42 | XMS_ITS | Encounter Summary ---
Author Organization [facility] Healthcare Address [address] [place] [address] Care Team Providers Care Top Printing Press Operator Name Role Phone No, Physician Primary Care Provider [phone] Reason for Referral * Diagnostic Imaging (Routine) - Pending Review Specialty Diagnoses / Procedures Referred By Contac t Referred To Contact Diagnoses High risk , antepartum Monochorionic diamniotic twin , antepartum Procedures US OB Heart with US Follow up (C) Dia Mantilla MD [address] [place] [address] DR BAUTISTA [address] [place] [address] Phone: tel: [facility] [place] [address] [place] [address] Referral ID Status Reason Start Date Expiration Date V isits Requested Visits Authorized [id number] Pending Review 05/19/2024 06/18/2025 1 1 * Diagnostic Imaging (Routine) - Pending Review Specialty Diagnoses / Procedures Referred By Contac t Referred To Contact Diagnoses High risk , antepartum Monochorionic diamniotic twin , antepartum Procedures US OB Follow up with US Transvaginal (C) Dia Mantilla MD [address] [place] [address] DR BAUTISTA [address] [place] [address] Phone: tel: [facility] [address] [place] [address] Referral ID Status Reason Start Date Expiration Date V isits Requested Visits Authorized [id number] Pending Review 05/19/2024 06/18/2025 2 2 * Diagnostic Imaging (Routine) - Pending Review Specialty Diagnoses / Procedures Referred By Urbano t Referred To Contact Diagnoses High risk , antepartum Monochorionic diamniotic twin , antepartum Procedures US OB Follow up with US Transvaginal (C) Dia Mantilla MD [address] [place] [address] DR BAUTISTA [address] [place] [address] Phone: tel: [address] [address] Referral ID Status Reason Start Date Expiration Date V isits Requested Visits Authorized [id number] Pending Review 05/19/2024 06/18/2025 1 1 Encounter Details Date Type Department Care Team (Late st Contact Info) Description 05/19/2024 Orders Only [facility] Maternal Medicine Ultrasound[facility] [address] [place] [address] Radha Hicks, KRYSTEN Monochorionic diamniotic twin , antepartum (Primary Dx); High risk , antepartum Social History Tobacco Use Types Packs/Day Years [...] staff should administer the PHQ-9) 0 05/18/2024 [place] Depression Scale Answer Date Recorded [place] Depression Scale Total 10 05/20/2024 The thought of harming myself has occurred to me . 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 TECHNOLOGY ADOPTION MANAGER Gender Identity Not on file Sexual Orientation Not on file documented as of this encounter Plan of Treatment Not on file documented as of this encounter Results * US OB Follow [...] this is shorter than on prior imaging. us Dia Mantilla MD IMG OB US PROCEDURE S Final Result * US OB Follow up [...] twin B is 455 g. This is [id number] percentile for assigned gestational age. The interval [...] PROCEDURE S Final Result * US OB Follow up with US Transvaginal (C) (05/31/2024 12:41 PM CDT) Fetus# Fetus1 VIEWPOINT Estimated Weight 269 g&grams VIEWPOINT Placenta Details anterior VIEWPOINT Presentation Vertex; Maternal left- low VIEWPOINT Fetus# Fetus2 VIEWPOINT Estimated Weight 225 g&grams VIEWPOINT Placenta Details anterior VIEWPOINT Presentation Breech; Maternal right- high VIEWPOINT Anatomical Region Laterality Modality Abdomen N/A Ultrasound 05/31/2024 11:4 9 AM CDT Impressions 05/31/2024 1:21 PM CDT Monochorionic diamniotic twin at 18 weeks and 1 day in vertex and breech presentations for twin A and twin B respectively. ??The amniotic fluid is normal in each gestational sac. ??The heart rates were normal for both twins. ??There is a Barrientos anterior placenta with thin intervening membrane. ??This is most consistent with monochorionic diamniotic twin gestation. ??The inter twin growth discordance is 16.3%. ??Twin A is in vertex presentation. ??Twin A has an anterior placenta. ??The deepest vertical pocket of amniotic fluid in the gestational sac of twin A measures 5.7 cm. ??Growth of twin A is evaluated. ??The estimated weight of twin A is 269 g. ??This is the 90th percentile for assigned gestational age. ??The interval growth has been appropriate. ??No abnormalities of anatomy are identified in twin A. ??While reassuring ultrasound can not identify all defects. ??Umbilical artery Doppler blood flow in twin A is normal with a pulsatility index of 1.39. ?? There is no evidence of increased placental vascular resistance in twin A. ??Middle cerebral artery Doppler blood flow in twin A is normal with a peak systolic velocity in the middle cerebral artery of 26.18 centimeters/second. ??This is 1.12 multiples of the median. ??There is no evidence of increased cephalic blood flow shunting in twin A. ??There is no evidence of acute or severe twin-twin transfusion in twin A.Twin B is in breech presentation. ??Twin B has an anterior placenta. ??The deepest vertical pocket of amniotic fluid in the gestational sac of twin B measures 3.4 cm. ??Growth of twin B is evaluated. ??The estimated weight of twin B is 225 g. ??This is the 43rd percentile for assigned gestational age. ??The interval growth of twin B has been appropriate. ??No abnormalities of anatomy are identified in twin B. ??While reassuring ultrasound can not identify all defects. ??Umbilical artery Doppler blood flow in twin B is elevated. ??The pulsatility index in twin B in the umbilical artery is 1.67. ??There is increased placental vascular resistance in twin B. there is no evidence of absent end-diastolic blood flow in twin B. middle cerebral artery Doppler blood flow in twin B is normal. ??The peak systolic velocity in the middle cerebral artery of twin B is 26.98 centimeters/second. ??This is 1.16 multiples of the median. ??There is no evidence of cephalic blood flow shunting in twin B. there is subtle evidence of evolving twin-twin transfusion in twin B. Narrative Procedure Note Byron Tellez MD - 05/31/2024 IMPRESSION: Monochorionic diamniotic twin at 18 weeks and 1 day in vertexand breech presentations for twin A and twin B respectively. The amnioticfluid is normal in each gestational sac. The heart rates werenormal for both twins. There is a Barrientos anterior placenta with thinintervening membrane. This is most consistent with monochorionicdiamniotic twin gestation. The inter twin growth discordance is 16.3%.Twin A is in vertex presentation. Twin A has an anterior placenta. Thedeepest vertical pocket of amniotic fluid in the gestational sac of twin Ameasures 5.7 cm. Growth of twin A is evaluated. The estimated fetalweight of twin A is 269 g. This is the 90th percentile for assignedgestational age. The interval growth has been appropriate. Noabnormalities of anatomy are identified in twin A. While reassuringultrasound can not identify all defects. Umbilical artery Dopplerblood flow in twin A is normal with a pulsatility index of 1.39. There is no evidence of increased placental vascular resistance in twin A.Middle cerebral artery Doppler blood flow in twin A is normal with a peaksystolic velocity in the middle cerebral artery of 26.18centimeters/second. This is 1.12 multiples of the median. There is noevidence of increased cephalic blood flow shunting in twin A. There is noevidence of acute or severe twin-twin transfusion in twin A.Twin B is inbreech presentation. Twin B has an anterior placenta. The deepestvertical pocket of amniotic fluid in the gestational sac of twin Bmeasures 3.4 cm. Growth of twin B is evaluated. The estimated fetalweight of twin B is 225 g. This is the 43rd percentile for assignedgestational age. The interval growth of twin B has beenappropriate. No abnormalities of anatomy are identified in twin B.While reassuring ultrasound can not identify all defects. Umbilicalartery Doppler blood flow in twin B is elevated. The pulsatility index intwin B in the umbilical artery is 1.67. There is increased placental vascularresistance in twin B. there is no evidence of absent end-diastolic bloodflow in twin B. middle cerebral artery Doppler blood flow in twin B isnormal. The peak systolic velocity in the middle cerebral artery of twinB is 26.98 centimeters/second. This is 1.16 multiples of the median.There is no evidence of cephalic blood flow shunting in twin B. there issubtle evidence of evolving twin-twin transfusion in twin B. us Dia Mantilla MD [facility] [place] US PROCEDURE S Final Result documented in this encounter Visit Diagnoses Diagnosis Monochorionic diamniotic twin , antepartum- Primary High risk , antepartum High risk , antepartum Monochorionic diamniotic twin , antepartum High risk , antepartum Monochorionic diamniotic twin , antepartum High risk , antepartum Monochorionic diamniotic twin , antepartum High risk , antepartum Monochorionic diamniotic twin , antepartum documented in this encounter Care Teams Top Printing Press Operator Relationship Specialty Start Date End Date No, Physician PCP - General 02/25/24 documented as of this encounter
--- OUTSIDE RECORDS SUMMARY | 2024-10-06 03:42 | XMS_ITS | Encounter Summary ---
Author Organization [facility] Healthcare Address [address] [place] [address] Care Team Providers Care Outgoing Inspector Name Role Phone No, Physician Primary Care Provider [phone] Encounter Details Date Type Department Care Team (Late st Contact Info) Description 06/18/2024 9:15 AM CDT [address] [address] Encounter for supervision of normal first in first trimester; 20 weeks gestation of Social History Tobacco Use [...] staff should administer the PHQ-9) 0 05/18/2024 [place] Depression Scale Answer Date Recorded [place] Depression Scale Total 10 05/20/2024 The thought of harming myself has occurred to me . 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 Gender Identity Not on file Sexual Orientation Not on file documented as of this encounter Plan of Treatment Not on file documented as of this encounter Procedures Procedure Name Priority Date/Time Associated Diagnosis Comments GTT 50GM 1HR GESTATIONAL SCREEN Routine 06/18/2024 10:25 AM CDT Encounter for supervision of normal first in first trimester 20 weeks gestation of ABO/RH Routine 06/18/2024 10:25 AM CDT Encounter for supervision of normal first in first trimester ANTIBODY SCREEN Routine 06/18/2024 10:25 AM CDT Encounter for supervision of normal first in first trimester TYPE AND SCREEN Routine 06/18/2024 10:25 AM CDT Encounter for supervision of normal first in first trimester documented in this encounter Results * Antibody screen (06/18/2024 10:25 AM CDT) Abiodun, indirect, Gel Interpretation Negative ABSC Blood 06/18/2024 10:2 5 AM CDT 06/18/2024 11:53 AM CDT Narrative [facility]) - 06/18/2024 12:48 PM CDT Has the patient had Daratumumab or Isatuximab in the past 6 months?->Unknown us Dia Mantilla MD LAB BLOOD BANK TEST ORDERABLES Final Result [facility] ([place]) 1 [facility] [place] [address] * ABO/Rh (06/18/2024 10:25 AM CDT) ABO/Rh O Negative Blood 06/18/2024 10:2 5 AM CDT 06/18/2024 11:53 AM CDT Narrative [facility] [place]) - 06/18/2024 12:48 PM CDT Has the patient had Daratumumab or Isatuximab in the past 6 months?->Unknown Dia Mantilla MD LAB BLOOD BANK TEST ORDERABLES Final Result Performing Organization Address City/[facility]/ZIP Co de Phone Number [facility] ([place]) [address] [facility] [place] [address] * GTT 50gm 1hr gestational screen (06/18/2024 10:25 AM CDT) GTT 50g gest screen 82 <=140 mg/dL Comment: Interpretive Data Used for [...] data was last revised on 2020. Blood 06/18/2024 10:2 5 AM CDT 06/18/2024 11:53 AM CDT Dia Mantilla MD LAB BLOOD ORDERABLE S Final Result [facility] ([place]) [address] [facility] [place] [address] documented in this encounter Visit Diagnoses Diagnosis Encounter for supervision of normal first in first trimester 20 weeks gestation of documented in this encounter Care Teams Outgoing Inspector Relationship Specialty Start Date End Date No, Physician PCP - General 02/25/24 documented as of this encounter
--- OUTSIDE RECORDS SUMMARY | 2024-10-06 03:42 | XMS_ITS | Encounter Summary ---
Author Organization [facility] Healthcare Address [address] [place] [address] Care Team Providers Care Dormitory Keeper Name Role Phone No, Physician Primary Care Provider [phone] Encounter Details Date Type Department Care Team (Late st Contact Info) Description 04/25/2024 Telephone [facility] Maternal Medicine at [facility] [address] [facility] [address] [place] [address] Tasneem Funes, KRYSTEN Social History Tobacco Use Types Packs/Day Years [...] on file Legal Sex Female 2:19 AM MANAGER PMO Gender Identity Not on file Sexual Orientation Not on file documented as of this encounter Miscellaneous Notes * Telephone Encounter - Tasneem Funes RN - 04/25/2024 10:28 AM CDT Attempted to reach pt to schedule new pt consult appt as requested by Dr Mantilla. LM for pt to return call. documented in this encounter Plan of Treatment Not on file documented as of this encounter Visit Diagnoses Not on filedocumented in this encounter Care Teams Dormitory Keeper Relationship Specialty Start Date End Date No, Physician PCP - General 02/25/24 documented as of this encounter
--- OUTSIDE RECORDS SUMMARY | 2024-10-06 03:42 | XMS_ITS | Encounter Summary ---
Author Organization [facility] Facility Care Team Providers Care Planting Material Unloader Name Role Phone Unavailable Primary Care Provider Unavailabl e Encounter Details Date Type Department Care Team (Late st Contact Info) Description 07/06/2012 4:35 PM CDT - 07/06/2012 11:59 PM CDT Hospital Encounter [facility] Ramón Leong MD 1 [facility] [address] [place] [address] Abdominal pain Social History Tobacco Use Types Packs/Day Years Used Date Smoking Tobacco: Never Assessed Comments Unknown Sex and Gender Information Value Date Recorded Sex Assigned at Not on file Legal Sex Female 2:19 AM SCIENTIFIC INFORMATICS ANALYST Gender Identity Not on file Sexual Orientation Not on file documented as of this encounter Plan of Treatment Not on file documented as of this encounter Visit Diagnoses Diagnosis Abdominal pain Abdominal pain, unspecified site documented in this encounter
--- OUTSIDE RECORDS SUMMARY | 2024-10-06 03:42 | XMS_ITS | Encounter Summary ---
Author Organization [facility] Healthcare Address [address] [place] [address] Care Team Providers Care Hoisting Laborer Name Role Phone No, Physician Primary Care Provider [phone] Reason for Referral * Diagnostic Imaging (Routine) - Closed Specialty Diagnoses / Procedures Referred By Contac t Referred To Contact Diagnoses BMI 40.0-44.9, adult (HCC) Irritable bowel syndrome, unspecified type Monochorionic diamniotic twin , antepartum Long-term current use of antidepressant Anxiety disorder, unspecified type Procedures US OB Detail Anatomy with US Transvaginal (C) Dia Mantilla MD [address] [place] [address] DR BAUTISTA [address] [place] [address] Phone: tel: [facility] [address] [place] [address] Referral ID Status Reason Start Date Expiration Date Visits Re quested Visits Authorized [id number] Closed 05/18/2024 06/17/2025 1 1 Reason for Visit * Diagnostic Imaging (Routine) - Closed Specialty Diagnoses / Procedures Referred By Contac t Referred To Contact Diagnoses BMI 40.0-44.9, adult (HCC) Irritable bowel syndrome, unspecified type Monochorionic diamniotic twin , antepartum Long-term current use of antidepressant Anxiety disorder, unspecified type Procedures US OB Detail Anatomy with US Transvaginal (C) Dia Mantilla MD [address] [place] [address] DR BAUTISTA [address] [place] [address] Phone: tel: [facility] [address] [place] [address] Referral ID Status Reason Start Date Expiration Date Visits Re quested Visits Authorized [id number] Closed 05/18/2024 06/17/2025 1 1 Encounter Details Date Type Department Care Team (Latest Contact Info) Description 06/15/2024 11:11 AM CDT - 06/15/2024 11:59 PM CDT Hospital Encounter [facility] Maternal Medicine Ultrasound[facility] [address] [place] [id number] BMI 40.0-44.9, adult (HCC); Irritable bowel syndrome, unspecified type; Monochorionic diamniotic twin , antepartum; Long-term current use of antidepressant; Anxiety disorder, unspecified type Discharge Disposition: Discharge to home or self [...] staff should administer the PHQ-9) 0 05/18/2024 [place] Depression Scale Answer Date Recorded [place] Depression Scale Total 10 05/20/2024 The thought of harming myself has occurred to me . 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 Gender Identity Not on file Sexual Orientation [...] Priority Date/Time Associated Diagnosis Comments US OB DETAIL ANATOMY WITH US TRANSVAGINAL (C) Schedule Routine, Read Routine (OP Routine) 06/15/2024 2:04 PM CDT BMI 40.0-44.9, adult (HCC) Irritable bowel syndrome, unspecified type Monochorionic diamniotic twin , antepartum Long-term current use of antidepressant Anxiety disorder, unspecified type documented in this encounter Results * US OB Detail [...] documented in this encounter Visit Diagnoses Diagnosis BMI 40.0-44.9, adult (HCC) Irritable bowel syndrome, unspecified type Monochorionic diamniotic twin , antepartum Long-term current use of antidepressant Anxiety disorder, unspecified type documented in this encounter Care Teams Hoisting Laborer Relationship Specialty Start Date End Date No, Physician PCP - General 02/25/24 documented as of this encounter
--- OUTSIDE RECORDS SUMMARY | 2024-10-06 03:42 | XMS_ITS | Encounter Summary ---
Author Organization [facility] Healthcare Address [address] [place] [address] Care Team Providers Care Negative Turner Apprentice Name Role Phone No, Physician Primary Care Provider [phone] Encounter Details Date Type Department Care Team (Late st Contact Info) Description 05/20/2024 11:15 AM CDT Lab [facility] Outpatient Lab at [address] [address] IBS (irritable bowel syndrome) (Primary Dx); BMI 40.0-44.9, adult (HCC); Anxiety disorder Social History Tobacco Use Types Packs/Day Years [...] staff should administer the PHQ-9) 0 05/18/2024 [place] Depression Scale Answer Date Recorded [place] Depression Scale Total 10 05/20/2024 The thought of harming myself has occurred to me . 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 COMMUTATOR REPAIRER Gender Identity Not on file Sexual Orientation Not on file documented as of this encounter Plan of Treatment Not on file documented as of this encounter Visit Diagnoses Diagnosis IBS (irritable bowel syndrome)- Primary Irritable bowel syndrome BMI 40.0-44.9, adult (HCC) Anxiety disorder Anxiety state, unspecified documented in this encounter Care Teams Negative Turner Apprentice Relationship Specialty Start Date End Date No, Physician PCP - General 02/25/24 documented as of this encounter
--- OUTSIDE RECORDS SUMMARY | 2024-10-06 03:42 | XMS_ITS | Encounter Summary ---
Author Organization [facility] Healthcare Address [address] [place] [address] Care Team Providers Care Contracting Specialist Name Role Phone No, Physician Primary Care Provider [phone] Reason for Referral * Diagnostic Imaging (Routine) - Pending Review Specialty Diagnoses / Procedures Referred By Contac t Referred To Contact Diagnoses Ultrasound scan done for inability to hear heart tones Procedures US Ob Limited Heaven Hooks NP [address] [place] [address] DR BAUTISTA [address] [place] [address] Phone: tel: fax: Referral ID Status Reason Start Date Expiration Date V isits Requested Visits Authorized [id number] Pending Review 05/20/2024 06/19/2025 1 1 * Diagnostic Imaging (Routine) - Pending Review Specialty Diagnoses / Procedures Referred By Contac t Referred To Contact Diagnoses Ultrasound scan done for inability to hear heart tones Procedures US Ob Limited Heaven Hooks NP [address] [facility] [address] BAUTISTA [address] [place] [address] Phone: tel: fax: Referral ID Status Reason Start Date Expiration Date V isits Requested Visits Authorized [id number] Pending Review 05/20/2024 06/19/2025 1 1 Reason for Visit * Reason Comments Routine Visit Encounter Details Date Type Department Care Team ([facility] Contact Info) Description 05/20/2024 10:45 AM CDT Routine [facility] Women's [facility] Care at [address] [address] Heaven Hooks, PC TECHNICIAN [address] [facility] [address] BAUTISTA [address] [place] [address] Twin , unable to determine number of placenta and number of amniotic sacs, antepartum, unspecified trimester (Primary Dx); 16 weeks gestation of ; Ultrasound scan done for inability to hear [...] staff should administer the PHQ-9) 0 05/18/2024 [place] Depression Scale Answer Date Recorded [place] Depression Scale Total 10 05/20/2024 The thought of harming myself has occurred to me . 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 16w4d Morning sickness- only occasionally. Depression scale reviewed- 10/10. She thinks she is doing well off of the Lexapro. Labs reviewed. To complete today. To [facility] cfDNA testing- negative. Diet and exercise discussed- to spinning babies Covid vaccination recommended. To [place] this afternoon for heart tones. RTO 4 weeks with . Keep M appointments. Favio TAVAREZ Cosigned by Dia Mantilla MD at 05/25/2024 6:29 PM CDT documented in this encounter Plan of Treatment Not on file documented as of this encounter Results * US Ob Limited (06/13/2024 9:35 AM CDT) Fetus# Fetus1 VIEWPOINT Placenta Details anterior VIEWPOINT Presentation Vertex VIEWPOINT Fetus# Fetus2 VIEWPOINT Placenta Details anterior VIEWPOINT Presentation Vertex VIEWPOINT Anatomical Region Laterality Modality Abdomen N/A Ultrasound 06/13/2024 9:56 AM CDT Impressions 07/04/2024 9:53 AM CDT There is a monochorionic/diamniotic twin gestation. ??Both babies have documented cardiac activity and the amniotic fluid is within normal limits. Narrative Procedure Note Dia Mantilla MD - 07/04/2024 IMPRESSION: There is a monochorionic/diamniotic twin gestation. Both babies havedocumented cardiac activity and the amniotic fluid is within normallimits. Heaven Hooks NP [facility]ED[place] Final Result * US Ob Limited (05/20/2024 1:54 PM [...] cardiac activity.2. Normal amount of amniotic fluid. Heaven Hooks NP [facility]ED[place] Final Result documented in this encounter Visit Diagnoses Diagnosis Twin , unable to determine number of placenta and number of amniotic sacs, antepartum, unspecified trimester- Primary 16 weeks gestation of Ultrasound scan done for inability to hear heart tones Abnormality in heart rate/rhythm, antepartum condition or complication Ultrasound scan done for inability to hear heart tones Abnormality in heart rate/rhythm, antepartum condition or complication Ultrasound scan done for inability to hear heart tones Abnormality in heart rate/rhythm, antepartum condition or complication documented in this encounter Care Teams Contracting Specialist Relationship Specialty Start Date End Date No, Physician PCP - General 02/25/24 documented as of this encounter
--- OUTSIDE RECORDS SUMMARY | 2024-10-06 03:42 | XMS_ITS | Encounter Summary ---
Author Organization [facility] Healthcare Address [address] [place] [address] Care Team Providers Care Logistics Planning Manager Name Role Phone No, Physician Primary Care Provider [phone] Reason for Visit * Reason Comments Follow-up Encounter Details Date Type Department Care Team (Late st Contact Info) Description 06/29/2024 3:00 PM CDT Office Visit [facility] Maternal Medicine at [facility] [address] [facility] [address] [place] [phone] Nancy Be, CHIEF PRIVACY OFFICER [address] [facility] [address] [place] [address] Supervision of high-risk , second [...] staff should administer the PHQ-9) 0 05/18/2024 [place] Depression Scale Answer Date Recorded [place] Depression Scale Total 10 05/20/2024 The thought of harming myself has occurred to me . 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 female. Chief Complaint Chief Complaint Patient presents with Follow-up HPI Suki returns to the [facility] office at 22 weeks and 2 [...] CL 36.7 mm. Consultative Impressions and Recommendations: [age] y.o. @ 22w2d , 10/31/24 - primary OB is Dr. Mantilla, [facility] -Received Myriad Results: Foresight, Carrier Screen: Negative [...] Tellez MD at 06/29/2024 3:34 PM CDT documented in this encounter Plan of Treatment Not on file documented as of this encounter Procedures Procedure Name Priority Date/Time Associated Diagnosis Comments POCT URINALYSIS DIPSTICK Routine 06/29/2024 2:20 PM CDT Supervision of high-risk , second trimester documented in this encounter Results * (ABNORMAL) POCT urinalysis dipstick (06/29/2024 2:20 PM CDT) Glucose, ur, POC Negative Negative MG/DL Bilirubin, ur, POC Negative Negative, Small, Moderate, Large Ketones, ur, POC Trace(A) Negative Specific [place], POC 1.015 1.003 - 1.030 Blood, ur, POC Negative Negative pH, ur, POC 6.0 5.0 - 8.0 Protein, ur, POC Negative Negative Urobilinogen, urine, POC 0.2 0.2 - 1.0 mg/dL Nitrite, ur, POC Negative Negative Leukocytes, ur, POC Moderate(A) Negative Lot Number [id number] , Urine 06/29/2024 2:20 PM CDT us Nancy Be NP POINT OF CARE TEST ORD ERABLES Final Result documented in this encounter Visit Diagnoses Diagnosis Supervision of high-risk , second trimester- Primary documented in this encounter Care Teams Logistics Planning Manager Relationship Specialty Start Date End Date No, Physician PCP - General 02/25/24 documented as of this encounter
--- OUTSIDE RECORDS SUMMARY | 2024-10-06 03:42 | XMS_ITS | Encounter Summary ---
Author Organization [facility] Healthcare Address [address] [place] [address] Care Team Providers Care Planting Machine Operator Name Role Phone No, Physician Primary Care Provider [phone] Reason for Visit * Reason Comments Confirmation Encounter Details Date Type Department Care Team (Latest Contact Info) Description 03/01/2024 9:00 AM CDT Clinical Support [address] [place] [phone] Missed period (Primary Dx); Encounter to establish gestational age using ultrasound; Screening, , for anatomic survey Social History Tobacco Use Types Packs/Day Years Used Date Smoking Tobacco: Never Personal Safety Answer Date Recorded Getting School Help Needed Not on file 02/24 Comments Unknown Sex and Gender Information Value Date Recorded Sex Assigned at Not on file Legal 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 Pt to make appts. documented in this encounter Plan of Treatment Scheduled Orders Name Type Priority Associated Diagnoses Orde r Schedule US Ob 14 Wks Or Over Twins Imaging Schedule Routine, Read Routine (OP Routine) Screening, , for anatomic survey Expected: 03/01/2024, Expires: 03/01/2025 documented as of this encounter Procedures Procedure Name Priority Date/Time Associated Diagnosis Comments POCT HCG, URINE Routine 03/01/2024 9:12 AM CDT Missed period documented in this encounter Results * POCT hCG, urine (03/01/2024 9:12 AM CDT) HCG, ur, POC Negative Negative Lot Number 0 QC Backgroud Clear Acceptable QC Control Line Acceptable Urine 03/01/2024 9:12 AM CDT us Dia Mantilla MD POINT OF CARE TEST ORDERABLES Final Result documented in this encounter Visit Diagnoses Diagnosis Missed period- Primary Encounter to establish gestational age using ultrasound Encounter for routine screening for malformation using ultrasonics Screening, , for anatomic survey Encounter for anatomic survey documented in this encounter Care Teams Planting Machine Operator Relationship Specialty Start Date End Date No, Physician PCP - General 02/25/24 documented as of this encounter
--- OUTSIDE RECORDS SUMMARY | 2024-10-06 03:42 | XMS_ITS | Encounter Summary ---
Author Organization [facility] Healthcare Address [address] [place] [address] Care Team Providers Care Environment Friendly Landscape Designer Name Role Phone No, Physician Primary Care Provider [phone] Reason for Referral * Diagnostic Imaging (Routine) - Pending Review Specialty Diagnoses / Procedures Referred By Contac t Referred To Contact Diagnoses Monochorionic diamniotic twin , antepartum High risk , antepartum Procedures US OB 14 weeks or over with US Transvaginal (C) Byron Tellez MD [address] [address] Phone: tel: fax: 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 Gender Identity Not on file Sexual Orientation Not on file documented as of this encounter Plan of Treatment Not on file documented as of this encounter Results * US OB 14 weeks or over with US Transvaginal (C) (05/18/2024 1:00 PM CDT) Fetus# Fetus1 VIEWPOINT Estimated Weight 202 g&grams VIEWPOINT Placenta Details anterior VIEWPOINT Presentation Breech Low VIEWPOINT Fetus# Fetus2 VIEWPOINT Estimated Weight 132 g&grams VIEWPOINT Placenta Details anterior VIEWPOINT Presentation Breech; Maternal right- high VIEWPOINT Anatomical Region Laterality Modality Abdomen N/A Ultrasound 05/18/2024 11:4 8 AM CDT Impressions 05/18/2024 2:03 PM CDT Monochorionic diamniotic twin at 16 weeks and 2 days following spontaneous conception with uncertain last normal menstrual period. ??Gestational age assignment based on 1st trimester ultrasound performed at an outside institution establishing an estimated date of confinement of October 31, 2024. ??The heart rates were normal for twin a and twin B. there is a Barrientos anterior placenta with thin intervening membrane most consistent with monochorionic diamniotic placentation. ??The intertwin growth discordance is 34.6%.Twin A is in breech presentation. ??Twin A has an anterior placenta. ??The deepest vertical pocket of amniotic fluid in the gestational sac of twin A measures 3.0 cm. ??Growth of twin A is evaluated. ??The estimated weight of twin A is 202 g. ??This is greater than the 99th percentile for assigned gestational age. ??No abnormalities of anatomy are identified in twin A. ??While reassuring ultrasound can not identify all defects. ??The basic anatomic survey performed today is incomplete secondary to persistently unfavorable positioning. ??Twin B is in breech presentation. ??Twin B has an anterior placenta. ??The deepest vertical pocket of amniotic fluid in the gestational sac of twin B measures 2.9 cm. ??The umbilical cord insertion on the placenta for twin B is marginal at the fundal end of the placenta. ??Growth of twin B is evaluated. ??The estimated weight of twin B is 132 g. ??This is the 13th percentile for assigned gestational age. ??The basic anatomic survey is performed on twin B. no abnormalities of anatomy are detected in twin B. ??While reassuring ultrasound can not identify all defects. ??The basic anatomic survey performed is incomplete secondary to persistently unfavorable positioning.The cervix is evaluated by transvaginal ultrasonography. ??Cervical length is 34.6 mm. ??There was no endocervical funneling. ??Cervical length is normal for gestational age. ??Clinical correlation is recommended. Narrative Procedure Note Byron Tellez MD - 05/18/2024 IMPRESSION: Monochorionic diamniotic twin at 16 weeks and 2 days followingspontaneous conception with uncertain last normal menstrual period.Gestational age assignment based on 1st trimester ultrasound performed atan outside institution establishing an estimated date of confinement ofJan2024. The heart rates were normal for twin a and twinB. there is a Barrientos anterior placenta with thin intervening membranemost consistent with monochorionic diamniotic placentation. The intertwingrowth discordance is 34.6%.Twin A is in breech presentation. Twin A hasan anterior placenta. The deepest vertical pocket of amniotic fluid inthe gestational sac of twin A measures 3.0 cm. Growth of twin A isevaluated. The estimated weight of twin A is 202 g. This isgreater than the 99th percentile for assigned gestational age. Noabnormalities of anatomy are identified in twin A. While reassuringultrasound can not identify all defects. The basic anatomic survey performed today is incomplete secondary to persistentlyunfavorable positioning. Twin B is in breech presentation. Twin Bhas an anterior placenta. The deepest vertical pocket of amniotic fluidin the gestational sac of twin B measures 2.9 cm. The umbilical cordinsertion on the placenta for twin B is marginal at the fundal end of theplacenta. Growth of twin B is evaluated. The estimated weight oftwin B is 132 g. This is the 13th percentile for assigned gestationalage. The basic anatomic survey is performed on twin B. noabnormalities of anatomy are detected in twin B. While reassuringultrasound can not identify all defects. The basic anatomicsurvey performed is incomplete secondary to persistently unfavorable fetalpositioning.The cervix is evaluated by transvaginal ultrasonography.Cervical length is 34.6 mm. There was no endocervical funneling.Cervical length is normal for gestational age. Clinical correlation is recommended. us Byron Tellez MD IMG OB US PROCEDURES Final Re sult documented in this encounter Visit Diagnoses Diagnosis Monochorionic diamniotic twin , antepartum- Primary High risk , antepartum Monochorionic diamniotic twin , antepartum High risk , antepartum documented in this encounter Care Teams Environment Friendly Landscape Designer Relationship Specialty Start Date End Date No, Physician PCP - General 02/25/24 documented as of this encounter
--- OUTSIDE RECORDS SUMMARY | 2024-10-06 03:42 | XMS_ITS | Encounter Summary ---
Author Organization [facility] Healthcare Address [address] [place] [address] Care Team Providers Care Assembler Metal Building Name Role Phone No, Physician Primary Care Provider [phone] Reason for Referral * Consultation (Routine) - Closed Specialty Diagnoses / Procedures Referred By Urbano t Referred To Contact Maternal and Medicine Diagnoses Monochorionic diamniotic twin in first trimester Dia Mantilla MD [address] [place] [address] DR BAUTISTA [address] [place] [address] Phone: tel: [facility] [place] [facility] [address] [facility] [address] [place] [phone] Phone: tel: fax: Referral ID Status Reason Start Date Expiration Date V isits Requested Visits Authorized [id number] Closed Specialty Services Required 04/25/2024 05/25/2025 1 1 Question Answer Please select the performing region: [facility] [[id number]] Please select the performing department: [facility] [[id number]] # of visits: 1 Comments Sequoyah/Di twins Encounter Details Date Type Department Care Team (Late st Contact Info) Description 04/25/2024 Orders Only [facility] [address] [facility] [address] [place] [id number] Dia Mantilla MD [address] [place] [address] DR BAUTISTA [address] [place] [address] Monochorionic diamniotic twin in first trimester (Primary Dx) Social History Tobacco Use [...] on file Legal Sex Female 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 documented in this encounter Plan of Treatment Scheduled Referrals Name Type Priority Associated Diagnoses Order Schedule Ambulatory Referral to Maternal - Medicine (Perinatology) Outpatient Referral Routine Monochorionic diamniotic twin in first trimester Expected: 05/09/2024 (Approximate), Expires: 04/25/2025 documented as of this encounter Visit Diagnoses Diagnosis Monochorionic diamniotic twin in first trimester- Primary documented in this encounter Care Teams Assembler Metal Building Relationship Specialty Start Date End Date No, Physician PCP - General 5/23/24 documented as of this encounter
--- OUTSIDE RECORDS SUMMARY | 2024-10-06 03:42 | XMS_ITS | Encounter Summary ---
Author Organization [facility] Healthcare Address [address] [place] [address] Care Team Providers Care Rugby Union Footballer Name Role Phone No, Physician Primary Care Provider [phone] Encounter Details Date Type Department Care Team (Latest Contact Info) Description 05/20/2024 11:13 AM CDT - 05/20/2024 11:59 PM CDT Hospital Encounter [address] [id number] Encounter for supervision of normal first in first trimester; 11 weeks gestation of Discharge Disposition: Discharge to home or self [...] staff should administer the PHQ-9) 0 05/18/2024 [place] Depression Scale Answer Date Recorded [place] Depression Scale Total 10 05/20/2024 The thought of harming myself has occurred to me . 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 Gender Identity Not on file Sexual Orientation Not on file documented as of this encounter Medications at Time of Discharge no115/iron/folic acid ( 19 ORAL) Take by mouth aspirin 81 mg chewable tablet Take 1 tablet (81 mg total) by mouth daily 30 tablet 11 04/15/2024 09/22/2024 escitalopram (LEXAPRO) 20 mg tablet Take 1 tablet (20 mg total) by mouth daily 03/29/2024 06/15/2024 nortriptyline (PAMELOR) 10 mg capsule 04/04/2024 06/15/2024 documented as of this encounter Discharge Disposition Disposition Code Departure Means Destination Discharge to home or self care documented in this encounter Plan of Treatment Not on file documented as of this encounter Procedures Procedure Name Priority Date/Time Associated Diagnosis Comments DIFFERENTIAL AUTO Routine 05/20/2024 2:4 7 PM CDT Encounter for supervision of normal first in first trimester 11 weeks gestation of HIV 1/2 ANTIBODY PLUS P24 ANTIGEN Routine 05/20/2024 2:47 PM CDT Encounter for supervision of normal first in first trimester 11 weeks gestation of CBC WITH AUTO DIFFERENTIAL Routine 05/20/2024 2:47 PM CDT Encounter for supervision of normal first in first trimester 11 weeks gestation of HEPATITIS C ANTIBODY Routine 05/20/2024 2:47 PM CDT Encounter for supervision of normal first in first trimester 11 weeks gestation of DRUGS OF ABUSE SCREEN, URINE WITHOUT CONFIRMATION Routine 05/20/2024 2:47 PM CDT Encounter for supervision of normal first in first trimester 11 weeks gestation of VITAMIN D 25 HYDROXY Routine 05/20/2024 2:47 PM CDT Encounter for supervision of normal first in first trimester 11 weeks gestation of RUBELLA IGG Routine 05/20/2024 2:47 PM CDT Encounter for supervision of normal first in first trimester 11 weeks gestation of RPR Routine 05/20/2024 2:47 PM CDT Encounter for supervision of normal first in first trimester 11 weeks gestation of HEPATITIS B SURFACE ANTIGEN Routine 05/20/2024 2:47 PM CDT Encounter for supervision of normal first in first trimester 11 weeks gestation of URINE CULTURE Routine 05/20/2024 2:47 PM CDT Encounter for supervision of normal first in first trimester 11 weeks gestation of VARICELLA ZOSTER ANTIBODY, IGG Routine 05/20/2024 2:47 PM CDT Encounter for supervision of normal first in first trimester 11 weeks gestation of HEMOGLOBIN A1C Routine 05/20/2024 2:47 PM CDT Encounter for supervision of normal first in first trimester 11 weeks gestation of documented in this encounter Results * Differential, auto (05/20/2024 2:47 PM CDT) Neutrophil abs 5.0 1.5 - 6.5 K/cumm Imm gran abs 0.0 0.0 - 0.1 K/cumm CERNER CH Lymphocyte abs 2.1 0.8 - 3.3 K/cumm [facility] CH Monocyte abs 0.6 0.2 - 0.8 K/cumm [facility] CH Eosinophil abs 0.2 0.0 - 0.5 K/cumm C[facility]ER Basophil abs 0.0 0.0 - 0.1 K/cumm [facility] Neutrophil pct 62.8 % CERNER Comment: Interpretive Data Percent cell count reference ranges are not reported, since discordance with absolute values may lead to misinterpretation of CBC data. Current Interpretive Data was last revised on 2018. Imm gran pct 0.5 % BIA Comment: Interpretive Data Percent cell count reference ranges are not reported, since discordance with absolute values may lead to misinterpretation of CBC data. Current Interpretive Data was last revised on 2018. Lymphocyte pct 26.4 % BIA Comment: Interpretive Data Percent cell count reference ranges are not reported, since discordance with absolute values may lead to misinterpretation of CBC data. Current Interpretive Data was last revised on 2018. Monocyte pct 8.0 % BIA Comment: Interpretive Data Percent cell count reference ranges are not reported, since discordance with absolute values may lead to misinterpretation of CBC data. Current Interpretive Data was last revised on 2018. Eosinophil pct 2.0 % BIA Comment: Interpretive Data Percent cell count reference ranges are not reported, since discordance with absolute values may lead to misinterpretation of CBC data. Current Interpretive Data was last revised on 2018. Basophil pct 0.3 % BIA Comment: Interpretive Data Percent cell count reference ranges are not reported, since discordance with absolute values may lead to misinterpretation of CBC data. Current Interpretive Data was last revised on 2018. Blood 05/20/2024 2:47 PM CDT 05/20/2024 3:12 PM CDT us Dia Mantilla MD LAB BLOOD ORDERABLE S Final Result BIA [address] Department [place] [address] * Hemoglobin A1c (05/20/2024 2:47 PM CDT) Hgb A1C 4.6 4.0 - 5.6 % Estimated Average Glucose 85 mg/dL BIA Comment: The ADA recommends reporting an estimated Average Glucose (eAG) with all Hemoglobin A1c results using the equation derived from a study of 507 normal and diabetic adults. ??Minority populations were underrepresented and children were not included. ?? (Diabetes Care 31:7474-4454, 2008). ??The eAG is not equivalent to a fasting glucose. Blood 05/20/2024 2:47 PM CDT 05/20/2024 3:12 PM CDT Dia Mantilla MD LAB BLOOD ORDERABLE S Final Result Performing Organization Address City/[facility]/ZIP Co de Phone Number BIA SWEET [address] [place] [address] * CBC with auto differential (05/20/2024 2:47 PM CDT) WBC 8.0 3.8 - 9.9 K/cumm Hgb 13.4 11.9 - 15.5 g/dL [facility] Hct 39.4 35.6 - 45.5 % [facility] Plt 324 150 - 400 K/cumm [facility] MPV 9.8 9.1 - 12.3 fL [facility] RBC 4.49 3.90 - 5.20 M/cumm [facility] MCV 87.8 81.3 - 96.4 fL [facility] MCH 29.8 27.1 - 33.[address] [facility] [facility] MCHC 34.0 32.3 - 35.7 g/dL [facility] RDW CV 13.7 11.1 - 14.9 % [facility] RDW SD 43.9 35.7 - 48.1 fL [facility] NRBC abs 0.00 0.00 - 0.01 K/cumm [facility] Blood 05/20/2024 2:47 PM CDT 05/20/2024 3:12 PM CDT Dia Mantilla MD LAB BLOOD ORDERABLE S Final Result Performing Organization Address City/[facility]/ZIP Co de Phone Number BIA SWEET [address] [employer] [place], [place] [phone] * Drugs of Abuse Screen, Urine without [...] 2023. Barbiturates, ur Not Detected CutOff 200ng/mL CERNER Comment: Interpretive Data - Barbiturates: ??Samples containing greater than 200 ng/mL secobarbital or other cross-reacting barbiturate compounds are reported as positive. ??False positive and false negative results are possible. Confirmatory testing required for definitive results. Current Interpretive Data was last reviewed 2023. Benzodiazepines, ur Not Detected CutOff 100ng/mL CERNER Comment: Interpretive Data - Benzodiazepines: ??Samples containing [...] 2023. Cocaine, ur Not Detected CutOff 150ng/mL [facility] Comment: Interpretive Data - Cocaine: ??Samples containing [...] 2024. Methadone, ur Not Detected CutOff 300ng/mL [facility] Comment: Interpretive Data - Methadone: ??Samples containing greater than 300 ng/mL d,l-methadone or other cross-reacting compounds are reported as positive. ??False positive and false negative results are possible. Confirmatory testing required for definitive results. Current Interpretive Data was last reviewed 2023. Opiates, ur Not Detected CutOff 300ng/mL BIA Comment: Interpretive Data - Opiates: ??Samples containing greater than 300 ng/mL morphine or other cross-reacting compounds are reported as positive. ??False positive and false negative results are possible. Confirmatory testing required for definitive results. Current Interpretive Data was last reviewed 2023. Oxycodone, ur Not Detected CutOff 100ng/mL BIA Comment: Interpretive Data - Oxycodone: ??Samples containing [...] was last revised on 2017. Urine 05/20/2024 2:47 PM CDT 05/20/2024 3:12 PM CDT Narrative [facility] - 05/20/2024 7:58 PM CDT Drug of Abuse screening is performed by immunoassay for medical purposes only. ??This is not to be used for Pain Management purposes. us Dia Mantilla MD LAB URINE ORDERABLE S Final Result [facility] [address] Department [place] [address] * Hepatitis B Surface Antigen Blood (05/20/2024 2:47 PM CDT) HepBsAg Nonreactive Nonreactive Blood 05/20/2024 2:47 PM CDT 05/20/2024 3:12 PM CDT Dia Mantilla MD LAB MICROBIOLOGY - GENERAL ORDERABLES Final Result Performing Organization Address [facility] de Phone Number BIA [address] [place] [address] * Hepatitis C antibody Blood (05/20/2024 2:47 [...] GENERAL ORDERABLES Final Result Performing Organization Address [facility] Co de Phone Number BIA [address] [facility] [place] [address] * HIV 1/2 Antibody plus p24 Antigen Blood (05/20/2024 2:47 PM CDT) Pathologist [facility] HIV 1/2 ab + p24 ag Nonreactive Nonreactive Comment: Nonreactive for HIV-1 antigen and HIV-1/HIV-2 antibodies. No laboratory evidence of HIV infection. If acute HIV infection is suspected, consider testing for HIV-1 RNA. Blood 05/20/2024 2:47 PM CDT 05/20/2024 3:12 PM CDT Dia Mantilla MD LAB MICROBIOLOGY - GENERAL ORDERABLES Final Result Performing Organization Address City/[facility] Co de Phone Number BIA SWEET [address] [facility] [place] [address] * RPR Blood (05/20/2024 2:47 PM CDT) Pathologist [facility] RPR Nonreactive Nonreactive Blood 05/20/2024 2:47 PM CDT 05/20/2024 3:12 PM CDT Dia Mantilla MD LAB MICROBIOLOGY - GENERAL ORDERABLES Final Result Performing Organization Address [facility] de Phone Number BIA SWEET [address] [facility] [place] [address] * Rubella IgG antibody Blood (05/20/2024 2:47 PM CDT) Pathologist [facility] Rubella IgG Reactive Comment: Reactive: Results suggest response to immunization or prior exposure to the virus. Testing performed by: [facility], [address] [place] [address]., [id number] Blood 05/20/2024 2:47 PM CDT 05/21/2024 5:11 PM CDT Dia Mantilla MD LAB MICROBIOLOGY - GENERAL ORDERABLES Final Result Performing Organization Address [facility] de Phone Number BIA SWEET [address] [facility] [place] [address] * (ABNORMAL) Varicella Zoster IgG antibody Blood (05/20/2024 2:47 PM CDT) Pathologist [facility] VZV IgG Equivocal( A) Reactive Comment: Equivocal: Presence or absence of detectable antibodies to Varicella-zoster virus cannot be determined. ??Submit new specimen if clinically indicated. Testing performed by: [facility], [address] [place] [address]., [id number] Blood 05/20/2024 2:47 PM CDT 05/21/2024 5:11 PM CDT Dia Mantilla MD LAB MICROBIOLOGY - GENERAL ORDERABLES Final Result BIA SWEET [address] [place] [address] * (ABNORMAL) Vitamin D 25 hydroxy (05/20/2024 2:47 PM CDT) Vitamin D 25-OH 20(L) 30 - 80 ng/mL Blood 05/20/2024 2:47 PM CDT 05/20/2024 3:12 PM CDT Dia Mantilla MD LAB BLOOD ORDERABLE S Final Result Performing Organization Address [facility] Co de Phone Number BIA SWEET [address] [place] [address] * Urine culture Urine, clean voided (05/20/2024 2:47 PM CDT) Report Final Report: Less than 100,000 colonies/mL (clinically insignificant growth based on current clinical standards) Comment:Testing performed by : [facility], [address] [place]., [address] Organism (CLINICALLY INSIGNIFICANT GROWTH BIA Urine, clean voided 05/20/2024 2:47 PM CDT 05/20/2024 7:35 PM CDT Narrative BIA SWEET - 05/22/2024 9:59 AM CDT Testing performed by [facility] ([phone]) Dia Mantilla MD LAB MICROBIOLOGY - GENERAL ORDERABLES Final Result BIA SWEET [address] [place] [address] documented in this encounter Visit Diagnoses Diagnosis Encounter for supervision of normal first in first trimester 11 weeks gestation of documented in this encounter Care Teams Rugby Union Footballer Relationship Specialty Start Date End Date No, Physician PCP - General 02/25/24 documented as of this encounter
--- OUTSIDE RECORDS SUMMARY | 2024-10-06 03:42 | XMS_ITS | Encounter Summary ---
Author Organization [facility] Healthcare Address [address] [place] [address] Care Team Providers Care Spring Former Name Role Phone No, Physician Primary Care Provider [phone] Reason for Visit * Reason Comments Ultrasound * Diagnostic Imaging (Routine) - Canceled Specialty Diagnoses / Procedures Referred By Contac t Referred To Contact Diagnoses Encounter to establish gestational age using ultrasound Procedures US Ob Under 14 Weeks Dia Mantilla MD [address] [place] [address] [address] Phone: tel: [facility] [address] [place] [address] [place] [id number] Phone: tel: fax: Referral ID Status Reason Start Date Expiration Date V isits Requested Visits Authorized [id number] Canceled 03/01/2024 03/31/2025 1 1 Encounter Details Date Type Department Care Team (Latest Contact Info) Description 03/22/2024 8:00 AM CDT Ancillary Procedure [facility] [address] [place] [address] [address], [place] [address] Encounter to establish gestational age using ultrasound Social History Tobacco Use Types Packs/Day Years Used Date Smoking Tobacco: Never Personal Safety Answer Date Recorded Getting School Help Needed Not on file 02/24 Comments Unknown Sex and Gender Information Value Date Recorded Sex Assigned at Not on file 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 Gender Identity Not on file Sexual Orientation Not on file documented as of this encounter Plan of Treatment Not on file documented as of this encounter Procedures Procedure Name Priority Date/Time Associated Diagnosis Comments US OB UNDER 14 WEEKS W ENDOVAGINAL TWINS Schedule Routine, Read Routine (OP Routine) 03/22/2024 8:40 AM CDT Encounter to establish gestational age using ultrasound documented in this encounter Results * US Ob Under 14 Wks W Endovag Twins (03/22/2024 8:40 AM CDT) Anatomical Region Laterality Modality Abdomen N/A Ultrasound 03/22/2024 8:26 AM CDT Impressions 03/28/2024 1:30 PM CDT 1. ?? There is a twin gestation at an average of 8 weeks 1 day and an average EDC of 10/31/2024.2. ??Twin gestation - based on the images provided I can not tell the chorionicity.3. Normal-appearing ovaries. Narrative Procedure Note Dia Mantilla MD - 03/28/2024 IMPRESSION: 1. There is a twin gestation at an average of 8 weeks 1 day and anaverage EDC of 10/31/2024.2. Twin gestation - based on the imagesprovided I can not tell the chorionicity.3. Normal-appearing ovaries. us Dia Mantilla MD IMG OB US PROCEDURE S Final Result documented in this encounter Visit Diagnoses Diagnosis Encounter to establish gestational age using ultrasound Encounter for routine screening for malformation using ultrasonics documented in this encounter Care Teams Spring Former Relationship Specialty Start Date End Date No, Physician PCP - General 02/25/24 documented as of this encounter
--- OUTSIDE RECORDS SUMMARY | 2024-10-06 03:42 | XMS_ITS | Encounter Summary ---
Author Organization [facility] Healthcare Address [address] [place] [address] Care Team Providers Care Last Greaser Name Role Phone No, Physician Primary Care Provider [phone] Encounter Details Date Type Department Care Team (Late st Contact Info) Description 03/04/2024 Telephone [facility] [address] [place] [address] [address] [place] [address] Sunni Physician Social History Tobacco Use Types Packs/Day Years Used Date Smoking Tobacco: Never Personal Safety Answer Date Recorded Getting School Help Needed Not on file 02/24 Comments Unknown Sex and Gender Information Value Date Recorded Sex Assigned at Not on file 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
--- OUTSIDE RECORDS SUMMARY | 2024-10-06 03:42 | XMS_ITS | Encounter Summary ---
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 Gender Identity Not on file Sexual Orientation Not on file documented as of this encounter Plan of Treatment Pending Results Name Type Priority Associated Diagnoses Date /Time US Ob Under 14 Wks W Endovag Twins Imaging Schedule Routine, Read Routine (OP Routine) Twin preg, unable to dtrm num plcnta & amnio sacs, 2nd tri 04/25/2024 8:45 AM CDT documented as of this encounter Visit Diagnoses Diagnosis Twin preg, unable to dtrm num plcnta & amnio sacs, 2nd tri documented in this encounter Care Teams Forming Tube Selector Relationship Specialty Start Date End Date No, Physician PCP - General 02/25/24 documented as of this encounter
--- OUTSIDE RECORDS SUMMARY | 2024-10-06 03:42 | XMS_ITS | Encounter Summary ---
Author Organization [facility] Healthcare Address [address] [place] [address] Care Team Providers Care Ferruler Name Role Phone No, Physician Primary Care Provider [phone] Encounter Details Date Type Department Care Team (Late st Contact Info) Description 05/23/2024 Telephone [facility] Medical Group [facility] Care at [address] [address] Dia Mantilla MD [address] [place] [address] Social History Tobacco Use Types Packs/Day Years [...] staff should administer the PHQ-9) 0 05/18/2024 [place] Depression Scale Answer Date Recorded [place] Depression Scale Total 10 05/20/2024 The thought of harming myself has occurred to me . 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 Mantilla. Can you reorder the type and screen for Suki? I will be calling her backfor the recollect as we did not sign the tube per our blood bank policy. New order place and notified Thank youTash documented in this encounter Plan of Treatment Not on file documented as of this encounter Visit Diagnoses Diagnosis Encounter for supervision of normal first in first trimester- Primary documented in this encounter Care Teams Ferruler Relationship Specialty Start Date End Date No, Physician PCP - General 02/25/24 documented as of this encounter
--- OUTSIDE RECORDS SUMMARY | 2024-10-06 03:42 | XMS_ITS | Encounter Summary ---
Author Organization [facility] Healthcare Address [address] [place] [address] Care Team Providers Care Industrial Insulator Name Role Phone No, Physician Primary Care Provider [phone] Reason for Referral * Diagnostic Imaging (Routine) - Pending Review Specialty Diagnoses / Procedures Referred By Contac t Referred To Contact Diagnoses Monochorionic diamniotic twin , antepartum High risk , antepartum Procedures US OB 14 weeks or over with US Transvaginal (C) Byron Tellez MD [address] [address] Phone: tel: fax: [place] [address] [place] [address] Referral ID Status Reason Start Date Expiration Date V isits Requested Visits Authorized [id number] Pending Review 04/25/2024 05/25/2025 1 1 Reason for Visit * Diagnostic Imaging (Routine) - Pending Review Specialty Diagnoses / Procedures Referred By Contac t Referred To Contact Diagnoses Monochorionic diamniotic twin , antepartum High risk , antepartum Procedures US OB 14 weeks or over with US Transvaginal (C) Byron Tellez MD [address] [address] Phone: tel: fax: [place] [address] [place] [address] Referral ID Status Reason Start Date Expiration Date V isits Requested Visits Authorized [id number] Pending Review 04/25/2024 05/25/2025 1 1 Encounter Details Date Type Department Care Team (Latest Contact Info) Description 05/18/2024 11:07 AM CDT - 05/18/2024 11:59 PM CDT Hospital Encounter [facility] Maternal Medicine Ultrasound[facility] [address] [place] [address] Monochorionic diamniotic twin , antepartum; High risk , antepartum Discharge Disposition: Discharge to home [...] on file 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
--- OUTSIDE RECORDS SUMMARY | 2024-10-06 03:42 | XMS_ITS | Encounter Summary ---
Author Organization [facility] Healthcare Address [address] [place] [address] Care Team Providers Care Middle School Assistant Principal Name Role Phone No, Physician Primary Care Provider [phone] Reason for Referral * Diagnostic Imaging (Routine) - Pending Review Specialty Diagnoses / Procedures Referred By Contac t Referred To Contact Diagnoses High risk , antepartum Monochorionic diamniotic twin , antepartum Procedures US OB Follow up with US Transvaginal (C) Dia Mantilla MD [address] [place] [address] DR BAUTISTA [address] [place] [address] Phone: tel: [place] [address] [place] [address] Referral ID Status Reason Start Date Expiration Date V isits Requested Visits Authorized [id number] Pending Review 05/19/2024 06/18/2025 1 1 Reason for Visit * Diagnostic Imaging (Routine) - Pending Review Specialty Diagnoses / Procedures Referred By Contac t Referred To Contact Diagnoses High risk , antepartum Monochorionic diamniotic twin , antepartum Procedures US OB Follow up with US Transvaginal (C) Dia Mantilla MD [address] [place] [address] [address] BAUTISTA [address] [place] [address] Phone: tel: [facility] [address] [place] [address] Referral ID Status Reason Start Date Expiration Date V isits Requested Visits Authorized [id number] Pending Review 05/19/2024 06/18/2025 1 1 Encounter Details Date Type Department Care Team (Latest Contact Info) Description 05/31/2024 11:08 AM CDT - 05/31/2024 11:59 PM CDT Hospital Encounter [facility] Maternal Medicine Ultrasound-[facility] [address] [place] [id number] High risk , antepartum; Monochorionic diamniotic twin [...] staff should administer the PHQ-9) 0 05/18/2024 [place] Depression Scale Answer Date Recorded [place] Depression Scale Total 10 05/20/2024 The thought of harming myself has occurred to me . 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 Gender Identity Not on file Sexual Orientation Not on file documented as of this encounter Medications at Time of Discharge no115/iron/folic acid ( 19 ORAL) Take by mouth aspirin 81 mg chewable tablet Take 1 tablet (81 mg total) by mouth daily 30 tablet 11 04/15/2024 09/22/2024 escitalopram (LEXAPRO) 20 mg tablet Take 1 tablet (20 mg total) by mouth daily 03/29/2024 06/15/2024 metoclopramide (REGLAN) 10 mg tablet Take 1 tablet (10 mg total) by mouth 4 (four) times a day as needed (nausea) 30 tablet 1 05/31/2024 09/22/2024 nortriptyline (PAMELOR) 10 mg capsule 04/04/2024 06/15/2024 documented as of this encounter Discharge Disposition Disposition Code Departure Means Destination Discharge to home or self care documented in this encounter Plan of Treatment Not on file documented as of this encounter Procedures Procedure Name Priority Date/Time Associated Diagnosis Comments US OB FOLLOW UP WITH US TRANSVAGINAL (C) Schedule Routine, Read Routine (OP Routine) 05/31/2024 12:41 PM CDT High risk , antepartum Monochorionic [...] in twin B. us Dia Mantilla MD IMG OB US PROCEDURE S Final Result documented in this encounter Visit Diagnoses Diagnosis High risk , antepartum Monochorionic diamniotic twin , antepartum documented in this encounter Care Teams Middle School Assistant Principal Relationship Specialty Start Date End Date No, Physician PCP - General 02/25/24 documented as of this encounter
--- OUTSIDE RECORDS SUMMARY | 2024-10-06 03:42 | XMS_ITS | Encounter Summary ---
Author Organization [facility] Healthcare Address [address] [place] [address] Care Team Providers Care Waste Management Recycling Technician Name Role Phone No, Physician Primary Care Provider [phone] Reason for Visit * Reason Comments Follow-up Encounter Details Date Type Department Care Team (Late st Contact Info) Description 06/15/2024 2:30 PM CDT Office Visit [facility] at [facility] [address] [facility] [address] [place] [phone] Nancy Be, FOOD COOKING MACHINE OPERATOR [address] [facility] [address] [place] [address] Supervision of high-risk , second [...] should administer the PHQ-9) 0 05/18/2024 [place] Depression Scale Answer Date Recorded [place] Depression Scale Total 10 05/20/2024 The thought of harming myself has occurred to me . 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 MAGNETIZER Gender Identity Not on file Sexual Orientation Not on file documented as of this encounter Last Filed Vital Signs Vital Sign Reading Time Taken Comments Blood Pressure 118/68 06/15/2024 1:59 PM CDT Pulse - - Temperature - - Respiratory Rate - - Oxygen Saturation - - Inhaled Oxygen Concentration - - Weight 126 kg (277 lb 12.8 oz) 06/15/2024 1:59 P M CDT Height 165.1 cm (5' 5 ) 06/15/2024 1:59 PM CDT Body Mass Index 46.23 06/15/2024 1:59 PM CDT documented in this encounter Progress Notes * Nancy Be, FOOD COOKING MACHINE OPERATOR - 06/15/2024 2:30 PM CDT Subjective/Objective Patient ID: Suki Leon is a 29 y.o. female. Chief Complaint Chief Complaint Patient presents with Follow-up HPI Suki returns to the [facility] office at 20 weeks and 2 [...] WNL. CL 39.1mm. Consultative Impressions and Recommendations: [age] y.o. @ 20w2d , 10/31/24 - [facility] Results: Foresight, Carrier Screen: [...] Associated Diagnosis Comments POCT URINALYSIS DIPSTICK Routine 06/15/2024 2:07 PM CDT Supervision of high-risk , second trimester documented in this encounter Results * (ABNORMAL) POCT urinalysis dipstick (06/15/2024 2:07 PM CDT) Glucose, ur, POC Negative Negative MG/DL Bilirubin, ur, POC Negative Negative, Small, Moderate, Large Ketones, ur, POC Trace(A) Negative Specific [place], POC 1.020 1.003 - 1.030 Blood, ur, POC Trace(A) Negative pH, ur, POC 7.0 5.0 - 8.0 Protein, ur, POC Negative Negative Urobilinogen, urine, POC 0.2 0.2 - 1.0 mg/dL Nitrite, ur, POC Negative Negative Leukocytes, ur, POC Large(A) Negative Lot Number [id number] Urine 06/15/2024 2:07 PM CDT Byron Tellez MD POINT OF CARE TEST ORDERABLES Final Result documented in this encounter Visit Diagnoses Diagnosis Supervision of high-risk , second trimester- Primary documented in this encounter Discontinued Medications Medication Sig Discontinue Reason Start Date End Da te escitalopram (LEXAPRO) 20 mg tablet Take 1 tablet (20 mg total) by mouth daily Therapy completed 03/29/2024 06/15/2024 nortriptyline (PAMELOR) 10 mg capsule Therapy completed 04/04/2024 06/15/2024 documented as of this encounter Care Teams Waste Management Recycling Technician Relationship Specialty Start Date End Date No, Physician PCP - General 02/25/24 documented as of this encounter
--- OUTSIDE RECORDS SUMMARY | 2024-10-06 03:42 | XMS_ITS | Encounter Summary ---
Author Organization [facility] Healthcare Address [address] [place] [address] Care Team Providers Care Veneer Lathe Operator Name Role Phone No, Physician Primary Care Provider [phone] Reason for Referral * Diagnostic Imaging (Routine) - Closed Specialty Diagnoses / Procedures Referred By Urbano salinas Referred To Contact Radiology Diagnoses Ultrasound scan done for inability to hear heart tones Procedures US Ob Limited Dia Mantilla MD [address] [place] [address] [address] [place] [address] Phone: tel: [facility] [address] [place] [address] Dr [address] [place] [address] Phone: tel: fax: Referral ID Status Reason Start Date Expiration Date Visits Re quested Visits Authorized [id number] Closed 06/13/2024 07/13/2025 1 1 Reason for Visit * Reason Comments Routine Visit 20 weeks twinsPt. Will have anatomy scan with [facility] on 06/15/2024 Encounter Details Date Type Department Care Team (Late st Contact Info) Description 06/13/2024 11:45 AM CDT Routine [facility] at [address] [address] Dia Mantilla MD [address] [place] [address] DR BAUTISTA [address] [place] [address] Encounter for supervision of normal first in first trimester (Primary Dx); 20 weeks gestation of ; Ultrasound scan done [...] staff should administer the PHQ-9) 0 05/18/2024 [place] Depression Scale Answer Date Recorded [place] Depression Scale Total 10 05/20/2024 The thought of harming myself has occurred to me . 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 RISK ASSESSMENT ANALYST Gender Identity Not on file Sexual Orientation Not on file documented as of this encounter Last Filed Vital Signs Vital Sign Reading Time Taken Comments Blood Pressure 124/68 06/13/2024 12:12 PM CDT Pulse - - Temperature - - Respiratory Rate - - Oxygen Saturation - - Inhaled Oxygen Concentration - - Weight 127.1 kg (280 lb 1.6 oz) 024 12:12 PM CDT Height 165.1 cm (5' 5 ) 06/13/2024 12:1 2 PM CDT Body Mass Index 46.61 06/13/2024 12:12 PM CDT documented in this encounter Progress Notes * Dia Mantilla MD - 06/13/2024 11:45 AM CDT 20w0d Labs reviewed. - to vit d. To T&S and GCT (per mfm) Shipley are better To basa- she is taking. cfDNA testing- negative. RTO 4 weeks MFM appointments. - next is Thursday for anatomy scan. documented in this encounter Miscellaneous Notes * Addendum Note - Johny Oneill MA - 06/13/2024 11:45 AM CDTAddended by: JOHNY ONEILL on: 06/13/2024 12:47 PM Modules accepted: Orders * Addendum Note - Johny Oneill MA - 06/13/2024 11:45 AM CDTAddended by: JOHNY ONEILL on: 06/13/2024 12:50 PM Modules accepted: Orders * Addendum Note - Rohith Gomes - 06/13/2024 11:45 AM CDTAddended by: ROHITH GOMES on: 06/18/2024 09:19 AM Modules accepted: Orders documented in this encounter Plan of Treatment Not on file documented as of this encounter Procedures Procedure Name Priority Date/Time Associated Diagnosis Comments POCT OB URINE SHORT DIP (GLUCOSE, PROTEIN, KETONES) Routine 06/13/2024 12:19 PM CDT Encounter for supervision of normal first in first trimester 20 weeks gestation of documented in this encounter Results * US [...] OB US PROCEDURE S Final Result * GTT 50gm 1hr gestational screen (06/18/2024 [...] 5 AM CDT 06/18/2024 11:53 AM CDT us Dia Mantilla MD LAB BLOOD ORDERABLE S Final Result [facility] Department [place] [address] * (ABNORMAL) POCT OB urine short dip (glucose, protein, ketones) (06/13/2024 12:19 PM CDT) Glucose, ur, POC Negative Negative MG/DL Protein, ur, POC Negative Negative Ketones, ur, POC Moderate(A) Negative Lot Number [id number] Urine 06/13/2024 12:1 9 PM CDT Dia Mantilla MD POINT OF CARE TEST ORDERABLES Final Result documented in this encounter Visit Diagnoses Diagnosis Encounter for supervision of normal first in first trimester- Primary 20 weeks gestation of Ultrasound scan done for inability to hear heart tones Abnormality in heart rate/rhythm, antepartum condition or complication Ultrasound scan done for inability to hear heart tones Abnormality in heart rate/rhythm, antepartum condition or complication documented in this encounter Care Teams Veneer Lathe Operator Relationship Specialty Start Date End Date No, Physician PCP - General 02/25/24 documented as of this encounter
--- OUTSIDE RECORDS SUMMARY | 2024-10-06 03:42 | XMS_ITS | Encounter Summary ---
Author Organization [facility] Healthcare Address [address] [place] [address] Care Team Providers Care Mixer Operator Vacuum Pan Salt Name Role Phone No, Physician Primary Care Provider [phone] Encounter Details Date Type Department Care Team (Late st Contact Info) Description 02/25/2024 Telephone [employer] [address] [facility] [address], [place] [address] No, Physician Social History Tobacco Use Types Packs/Day Years Used Date Smoking Tobacco: Never Personal Safety Answer Date Recorded Getting School Help Needed Not on file 02/24 Comments Unknown Sex and Gender Information Value Date Recorded Sex Assigned at Not on file Legal Sex Female 2:19 AM APPLICATION ENGINEER Gender Identity Not on file Sexual Orientation Not on file documented as of this encounter Miscellaneous Notes * Telephone Encounter - Ayaz Woo - 02/25/2024 10:54 AM CDT Called left vm documented in this encounter Plan of Treatment Not on file documented as of this encounter Visit Diagnoses Not on filedocumented in this encounter Care Teams Mixer Operator Vacuum Pan Salt Relationship Specialty Start Date End Date No Physician PCP - General 02/25/24 documented as of this encounter
--- OUTSIDE RECORDS SUMMARY | 2024-10-06 03:42 | XMS_ITS | Encounter Summary ---
Author Organization [facility] Healthcare Address [address] [place] [address] Care Team Providers Care Drying Tumbler Operator Name Role Phone No, Physician Primary Care Provider [phone] Reason for Visit * Reason Comments Ultrasound * Diagnostic Imaging (Routine) - Pending Review Specialty Diagnoses / Procedures Referred By Contac t Referred To Contact Diagnoses Ultrasound scan done for inability to hear heart tones Procedures US Ob Limited Heaven Hooks, BIOLOGY INTERN [address] [facility] [address] [address] Phone: tel: fax: Referral ID Status Reason Start Date Expiration Date V isits Requested Visits Authorized [id number] Pending Review 05/20/2024 06/19/2025 1 1 Encounter Details Date Type Department Care Team (Latest Contact Info) Description 06/13/2024 9:30 AM CDT Ancillary Procedure [facility] [address] [facility] [address] [place] [phone] Ultrasound scan done for inability to hear [...] staff should administer the PHQ-9) 0 05/18/2024 [place] Depression Scale Answer Date Recorded [place] Depression Scale Total 10 05/20/2024 The thought of harming myself has occurred to me . 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 us Heaven Hooks BIOLOGY INTERN IMG OB US PROCEDURES Final Result documented in this encounter Visit Diagnoses Diagnosis Ultrasound scan done for inability to hear heart tones Abnormality in heart rate/rhythm, antepartum condition or complication documented in this encounter Care Teams Drying Tumbler Operator Relationship Specialty Start Date End Date No, Physician PCP - General 02/25/24 documented as of this encounter
== END 2024-09-29 08:18 | disposition home or self-care (01) ==
PROVIDERS: Emergency Provider Emergency Medicine; PCP Internal Medicine
DX: O86.20 Urinary tract infection following delivery, unspecified (principal); N39.0 Urinary tract infection, site not specified; L76.34 Postprocedural seroma of skin and subcutaneous tissue following other procedure; R10.84 Generalized abdominal pain; Y83.8 Other surgical procedures as the cause of abnormal reaction of the patient, or of later complication, without mention of misadventure at the time of the procedure
CPT/HCPCS: 36415; 74176; 76856; 80053; 81001; 83605; 83690; 85027; 85610; 85730; 87040; 87077; 87086; 87088; 87186; 99284; A9270

== ENCOUNTER 2024-10-02 23:45 | Emergency (ER) | payer OTHER, MEDICAID, SELFPAY ==
[2024-10-02 23:50] VITALS: BP 145/97; PULSE 84; RESP 20; TEMP 36.6; O2SAT 97; O2SAT 98
--- NOTE | 2024-10-02 23:54 | ED.GENADULT ---
HPI - General Adult General Chief complaint: Unspecified Stated complaint: hypertension Time Seen by Provider: 10/02/24 23:53 Source: patient and family Mode of arrival: ambulatory Limitations: no limitations History of Present Illness HPI narrative: 29 years old white female came to the ED from home by private car complaining of elevated blood pressure at home 153/113 at 10:30 p.m.. patient is on September 19. Was diagnosed of preeclampsia and delivered at 34 weeks. Patient currently on on labetalol and nifedipine. Patient denies any fever, chills, nausea, vomiting, chest pain, shortness of breath, headache, lightheadedness or any other complaints. Just worried about elevated blood pressure. Blood pressure on arrival to the ED was 145/97. Vital signs are stable Physical examination showing anxious/depressed patient Differential diagnosis include anxiety like symptoms No labs or imaging are required at this time. Patient was assured that her current blood pressure in the ED is okay and she need to continue taking labetalol and nifedipine. Patient used to be on anti anxiety/ depression medication prior to and did quit on her own. Related Data Home Medications ?Medication ?Instructions ?Recorded ?Confirmed ?Last Taken ?Type cyclobenzaprine 5 mg tablet 5 mg PO PRN cramps 09/29/24 Unknown History escitalopram oxalate 20 mg tablet 20 mg PO .QD 09/29/24 09/29/24 Unknown History famotidine 40 mg tablet 40 mg PO QHS 09/29/24 09/29/24 Unknown History ibuprofen 600 mg tablet 600 mg PO Q6-8H PRN pain 09/29/24 09/29/24 Unknown History labetalol 300 mg tablet 300 mg PO .Q8 09/29/24 09/29/24 09/28/24 History nifedipine 60 mg tablet,extended 60 mg PO .Q24 09/29/24 09/29/24 09/28/24 History release oxycodone 5 mg tablet 5 mg PO QID PRN pain 09/29/24 09/29/24 09/28/24 History polyethylene glycol 3350 17 17 g PO .QD 09/29/24 09/29/24 09/28/24 History gram/dose oral powder (ClearLax) Allergies Allergy/AdvReac Type Severity Reaction Status Date / Time No Known Allergies Allergy Verified 09/29/24 03:07 [facility] Past Medical History Medical History (Updated 10/03/24 @ 00:07 by Brad Cisse MD) Acid reflux Anxiety Irritable bowel Surgical History Surgical History History of cholecystectomy Family History Family History Mother Family history of mental disorder Sibling Family history of mental disorder Father Hypertension Grandparent Diabetes mellitus Social History Social History Smoking status: Never smoker Alcohol intake: current Gender identity (if verbalized by the patient): Female Course Vital Signs Vital signs: Vital Signs Temperature 36.6 C 10/02/24 23:50 Pulse Rate 84 10/02/24 23:50 Respiratory Rate 20 10/02/24 23:50 Blood Pressure 145/97 H 10/02/24 23:50 Pulse Oximetry 97 10/02/24 23:50 Oxygen Delivery Room Air 10/02/24 23:50 Temperature 36.6 C 10/02/24 23:50 Pulse Rate 80 10/03/24 00:16 Respiratory Rate 20 10/03/24 00:16 Blood Pressure 145/90 H 10/03/24 00:16 Pulse Oximetry 98 10/03/24 00:16 Oxygen Delivery Autopap 10/03/24 00:16 Medical Decision Making Vital Signs Vital Signs: Vital Signs Temperature 36.6 C 10/02/24 23:50 Pulse Rate 84 10/02/24 23:50 Respiratory Rate 20 10/02/24 23:50 Blood Pressure 145/97 H 10/02/24 23:50 Pulse Oximetry 97 10/02/24 23:50 Oxygen Delivery Room Air 10/02/24 23:50 Temperature 36.6 C 10/02/24 23:50 Pulse Rate 80 10/03/24 00:16 Respiratory Rate 20 10/03/24 00:16 Blood Pressure 145/90 H 10/03/24 00:16 Pulse Oximetry 98 10/03/24 00:16 Oxygen Delivery Autopap 10/03/24 00:16 Critical Care Time Critical Care Time Critical Care Time: No Discharge Plan Discharge Clinical Impression: Anxiety-like symptoms Patient Disposition: Home, Self-Care Condition: Improved Instructions: Anxiety (ED) Additional Instructions: Return if symptoms are worsening , call your OBGYN for appointment, take Tylenol as as needed for aches and pain, continue home medications. Patient Language: Luxembourgish Prescriptions: No Action famotidine 40 mg tablet 40 mg PO QHS escitalopram oxalate 20 mg tablet 20 mg PO .QD cyclobenzaprine 5 mg tablet 5 mg PO PRN (Reason: cramps) ibuprofen 600 mg tablet 600 mg PO Q6-8H PRN (Reason: pain) labetalol 300 mg tablet 300 mg PO .Q8 polyethylene glycol 3350 [ClearLax] 17 gram/dose powder 17 g PO .QD nifedipine 60 mg tablet extended release 60 mg PO .Q24 oxycodone 5 mg tablet 5 mg PO QID PRN (Reason: pain) ciprofloxacin HCl [Cipro] 250 mg tablet 250 mg PO Q12H 5 Days Qty: 10 0RF Follow-up/Referrals: Bertrand Stephen MD [Primary Care Provider] -
[2024-10-03 00:16] VITALS: BP 145/90; PULSE 80; RESP 20; O2SAT 98
--- OUTSIDE RECORDS SUMMARY | 2024-10-10 01:41 | XMS_ITS | Encounter Summary ---
Author Organization [facility] Address [address] [place] [address]. [place] [address] [place] [address] Care Team Providers Care Loan Operations Manager Name Role Phone Unavailable Primary Care Provider Unavailabl e Encounter Details Date Type Department Care Team (Late st Contact Info) Description 10/10/[address] [facility] [address] [place] [address] Jerry Peters MD [address] [place], [place] [id number] Social History Tobacco Use Types Packs/Day Years Used Date Smoking Tobacco: Never Assessed Comments Unknown Sex and Gender Information Value Date Recorded Sex Assigned at Not on file Legal Sex Female 9:48 PM ASP NET C DEVELOPER Gender Identity Not on file Sexual Orientation Not on file documented as of this encounter Plan of Treatment Not on file documented as of this encounter Visit Diagnoses Not on filedocumented in this encounter Additional Health Concerns Infection Onset Date Last Indicated Resolved Time C. difficile 10/20/2018 10/20/2018 documented as of this encounter
--- OUTSIDE RECORDS SUMMARY | 2024-10-10 01:41 | XMS_ITS | Encounter Summary ---
Author Organization [facility] Address [address] [place] [address]. [place], [place] [address] [place] [address] Care Team Providers Care Aerospace Project Manager Name Role Phone Unavailable Primary Care Provider Unavailabl e Encounter Details Date Type Department Care Team (Late st Contact Info) Description 06/28/2005 Abstract [facility] [address] [facility] 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 difficile 10/20/2018 10/20/2018 documented as of this encounter
--- OUTSIDE RECORDS SUMMARY | 2024-10-10 01:41 | XMS_ITS | Encounter Summary ---
Author Organization [facility] Address [address] [place] [address]. [place] [address] [place] [address] Care Team Providers Care Manager Renewable Energy Name Role Phone Unavailable Primary Care Provider Unavailabl e Encounter Details Date Type Department Care Team (Late st Contact Info) Description 11/11/2001 Abstract [facility] [address] [place] [address] , Generic Conversion, Social History Tobacco Use Types Packs/Day Years Used Date Smoking Tobacco: Never Assessed Comments Unknown Sex and Gender Information Value Date Recorded Sex Assigned at Not on file Legal Sex Female 9:48 PM RADIOLOGIST DIAGNOSTIC Gender Identity Not on file Sexual Orientation Not on file documented as of this encounter Plan of Treatment Not on file documented as of this encounter Visit Diagnoses Not on filedocumented in this encounter Additional Health Concerns Infection Onset Date Last Indicated Resolved Time C. difficile 10/20/2018 10/20/2018 documented as of this encounter
--- OUTSIDE RECORDS SUMMARY | 2024-10-10 01:41 | XMS_ITS | Encounter Summary ---
Author Organization [facility] Address [address] [place] [address]. [place] [address] [place] [address] Care Team Providers Care Furnace Erector Name Role Phone Unavailable Primary Care Provider Unavailabl e Encounter Details Date Type Department Care Team (Late st Contact Info) Description 03/28/2004 Abstract [facility] [address] [place] [address] , Generic Conversion, Social History Tobacco Use Types Packs/Day Years Used Date Smoking Tobacco: Never Assessed Comments Unknown Sex and Gender Information Value Date Recorded Sex Assigned at Not on file Legal Sex Female 9:48 PM APPLICATION DBA Gender Identity Not on file Sexual Orientation Not on file documented as of this encounter Plan of Treatment Not on file documented as of this encounter Visit Diagnoses Not on filedocumented in this encounter Additional Health Concerns Infection Onset Date Last Indicated Resolved Time C. difficile 10/20/2018 10/20/2018 documented as of this encounter
--- OUTSIDE RECORDS SUMMARY | 2024-10-10 01:41 | XMS_ITS | Encounter Summary ---
Author Organization [facility] Address [address] [place] [address]. 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 difficile 10/20/2018 10/20/2018 documented as of this encounter
--- OUTSIDE RECORDS SUMMARY | 2024-10-10 01:41 | XMS_ITS | Encounter Summary ---
Author Organization [facility] Address [address] [place] [address]. [place] [address] [place] [address] Care Team Providers Care Market Research Lead Name Role Phone Unavailable Primary Care Provider Unavailabl e Encounter Details Date Type Department Care Team (Late st Contact Info) Description 05/21/2001 Abstract [facility] [address] [place] [address] , Generic Conversion, Social History Tobacco Use Types Packs/Day Years Used Date Smoking Tobacco: Never Assessed Comments Unknown Sex and Gender Information Value Date Recorded Sex Assigned at Not on file Legal Sex Female 9:48 PM HANGER Gender Identity Not on file Sexual Orientation Not on file documented as of this encounter Plan of Treatment Not on file documented as of this encounter Visit Diagnoses Not on filedocumented in this encounter Additional Health Concerns Infection Onset Date Last Indicated Resolved Time C. difficile 10/20/2018 10/20/2018 documented as of this encounter
--- OUTSIDE RECORDS SUMMARY | 2024-10-10 01:41 | XMS_ITS | Encounter Summary ---
Author Organization [facility] Address [address] [place] [address]. [place] [address] [place] [address] Care Team Providers Care Medical Territory Manager Name Role Phone Unavailable Primary Care Provider Unavailabl e Encounter Details Date Type Department Care Team (Late st Contact Info) Description 08/23/2013 Abstract [facility] [address] [place] [address] [place] [address] Social History Tobacco Use Types Packs/Day Years Used Date Smoking Tobacco: Never Assessed Comments Unknown Sex and Gender Information Value Date Recorded Sex Assigned at Not on file Legal Sex Female 9:48 PM SPORTS ATHLETIC TRAINER Gender Identity Not on file Sexual Orientation [...]
--- OUTSIDE RECORDS SUMMARY | 2024-10-10 01:41 | XMS_ITS | Encounter Summary ---
Author Organization [facility] Address [address] [place] [address]. [place] [address] [place] [address] Care Team Providers Care Grinder Set Up Operator Internal Name Role Phone Unavailable Primary Care Provider Unavailabl e Encounter Details Date Type Department Care Team (Late st Contact Info) Description 08/16/1998 Abstract [facility] [address] [place] [address] , Generic Conversion, Social History Tobacco Use Types Packs/Day Years Used Date Smoking Tobacco: Never Assessed Comments Unknown Sex and Gender Information Value Date Recorded Sex Assigned at Not on file Legal Sex Female 9:48 PM DRYCLEANER Gender Identity Not on file Sexual Orientation Not on file documented as of this encounter Plan of Treatment Not on file documented as of this encounter Visit Diagnoses Not on filedocumented in this encounter Additional Health Concerns Infection Onset Date Last Indicated Resolved Time C. difficile 10/20/2018 10/20/2018 documented as of this encounter
--- OUTSIDE RECORDS SUMMARY | 2024-10-10 01:41 | XMS_ITS | Encounter Summary ---
Author Organization [facility] Address [address] [place] [address]. [place], [place] [address] [place] [address] Care Team Providers Care Call Center Assistant Name Role Phone Unavailable Primary Care Provider Unavailabl e Encounter Details Date Type Department Care Team (Late st Contact Info) Description 1997 Abstract [facility] [address] [place] [address] , Generic Conversion, Social History Tobacco Use Types Packs/Day Years Used Date Smoking Tobacco: Never Assessed Comments Unknown Sex and Gender Information Value Date Recorded Sex Assigned at Not on file Legal Sex Female 9:48 PM AREA RELIEF PILOT Gender Identity Not on file Sexual Orientation Not on file documented as of this encounter Plan of Treatment Not on file documented as of this encounter Visit Diagnoses Not on filedocumented in this encounter Additional Health Concerns Infection Onset Date Last Indicated Resolved Time C. difficile 10/20/2018 10/20/2018 documented as of this encounter
--- OUTSIDE RECORDS SUMMARY | 2024-10-10 01:41 | XMS_ITS | Clinical Summary ---
Author Organization [facility] Address [address] [place] [address]. [place] [address] Care Team Providers Care Transcription Name Role Phone Unavailable Primary Care Provider Unavailabl e Social History Tobacco Use Types Packs/Day Years Used Date Smoking Tobacco: Never Assessed Comments Unknown Sex and Gender Information Value Date Recorded Sex Assigned at Not on file Legal Sex Female 9:48 PM OCCUPATIONAL HEALTH SPECIALIST Gender Identity Not on file Sexual [...] Last Indicated C. difficile 10/20/2018 10/20/2018 Insurance [facility] MEDICAID
--- OUTSIDE RECORDS SUMMARY | 2024-10-10 01:41 | XMS_ITS | Encounter Summary ---
Author Organization [facility] Address [address] [place] [address]. [place] [address] [place] [address] Care Team Providers Care Academic Director Name Role Phone Unavailable Primary Care Provider Unavailabl e Encounter Details Date Type Department Care Team (Late st Contact Info) Description 05/01/2018 Abstract [facility] [facility] [place] [address] Leonel Flaherty MD [address] [address] Social History Tobacco Use Types Packs/Day Years Used Date Smoking Tobacco: Never Assessed Comments Unknown Sex and Gender Information Value Date Recorded Sex Assigned at Not on file Legal Sex Female 9:48 PM EQUAL OPPORTUNITY DIRECTOR Gender Identity Not on file Sexual [...]
--- OUTSIDE RECORDS SUMMARY | 2024-10-10 01:41 | XMS_ITS | Encounter Summary ---
Author Organization [facility] Address [address] [place] [address]. [place] [address] [place] [address] Care Team Providers Care Nuclear Medicine Supervisor Name Role Phone Unavailable Primary Care Provider Unavailabl e Encounter Details Date Type Department Care Team (Late st Contact Info) Description 06/08/2001 Abstract [facility] [address] [place] [address] , Generic Conversion, Social History Tobacco Use Types Packs/Day Years Used Date Smoking Tobacco: Never Assessed Comments Unknown Sex and Gender Information Value Date Recorded Sex Assigned at Not on file Legal Sex Female 9:48 PM SENIOR QUALITY ANALYST Gender Identity Not on file Sexual Orientation Not on file documented as of this encounter Plan of Treatment Not on file documented as of this encounter Visit Diagnoses Not on filedocumented in this encounter Additional Health Concerns Infection Onset Date Last Indicated Resolved Time C. difficile 10/20/2018 10/20/2018 documented as of this encounter
--- OUTSIDE RECORDS SUMMARY | 2024-10-10 01:41 | XMS_ITS | Encounter Summary ---
Author Organization [facility] Address [address] [place] [address]. [place] [address] [place] [address] Care Team Providers Care Farmer Vegetable Name Role Phone Unavailable Primary Care Provider Unavailabl e Encounter Details Date Type Department Care Team (Late st Contact Info) Description 05/04/2015 Abstract [place] [facility] [facility] [place] [address] Angelo Naik MD [address] [place] [address] Social History Tobacco Use Types Packs/Day Years Used Date Smoking Tobacco: Never Assessed Comments Unknown Sex and Gender Information Value Date Recorded Sex Assigned at Not on file Legal Sex Female 9:48 PM LABORER SAWMILL Gender Identity Not on file Sexual Orientation Not on file documented as of this encounter Plan of Treatment Not on file documented as of this encounter Visit Diagnoses Diagnosis Constipation Unspecified constipation documented in this encounter Additional Health Concerns Infection Onset Date Last Indicated Resolved Time C. difficile 10/20/2018 10/20/2018 documented as of this encounter
--- OUTSIDE RECORDS SUMMARY | 2024-10-10 01:41 | XMS_ITS | Encounter Summary ---
Author Organization [facility] Address [address] [place] [address]. [place] [address] [place] [address] Care Team Providers Care Lumber Tallier Name Role Phone Unavailable Primary Care Provider Unavailabl e Encounter Details Date Type Department Care Team (Late st Contact Info) Description 06/17/2000 Abstract [facility] [address] [place] [address] , Generic Conversion, Social History Tobacco Use Types Packs/Day Years Used Date Smoking Tobacco: Never Assessed Comments Unknown Sex and Gender Information Value Date Recorded Sex Assigned at Not on file Legal Sex Female 9:48 PM DIRECTOR OF GLOBAL SALES Gender Identity Not on file Sexual Orientation Not on file documented as of this encounter Plan of Treatment Not on file documented as of this encounter Visit Diagnoses Not on filedocumented in this encounter Additional Health Concerns Infection Onset Date Last Indicated Resolved Time C. difficile 10/20/2018 10/20/2018 documented as of this encounter
--- OUTSIDE RECORDS SUMMARY | 2024-10-10 01:41 | XMS_ITS | Encounter Summary ---
Author Organization [facility] Address [address] [place] [address]. [place] [address] [place] [address] Care Team Providers Care Sports Equipment Supervisor Name Role Phone Unavailable Primary Care Provider Unavailabl e Encounter Details Date Type Department Care Team (Late st Contact Info) Description 03/14/2018 Abstract [facility] [facility] [place] [address] Seferino Valles MD [address] [place] [address] Social History Tobacco Use Types Packs/Day Years Used Date Smoking Tobacco: Never Assessed Comments Unknown Sex and Gender Information Value Date Recorded Sex Assigned at Not on file Legal Sex Female 9:48 PM STORE HOST Gender Identity Not on file Sexual Orientation [...]
--- OUTSIDE RECORDS SUMMARY | 2024-10-10 01:41 | XMS_ITS | Encounter Summary ---
Author Organization [facility] Address [address] [place] [address]. [place] [address] [place] [address] Care Team Providers Care Rv Repair Technician Name Role Phone Unavailable Primary Care Provider Unavailabl e Reason for Visit * Reason Comments Holter Monitor Report (SCAN) Encounter Details Date Type Department Care Team ([facility] Contact Info) Description 10/15/2020 [facility] [address] [place] [id number] Scanned, Documents Holter Monitor Report (SCAN) Social History Tobacco Use Types Packs/Day Years Used Date Smoking Tobacco: Never Assessed Comments Unknown Sex and Gender Information Value Date Recorded Sex Assigned at Not on file Legal Sex Female 9:48 PM WATER RESOURCES TECHNICAL OFFICER Gender Identity Not on file Sexual Orientation Not on file documented as of this encounter Plan of Treatment Not on file documented as of this encounter Procedures Procedure Name Priority Date/Time Associated Diagnosis Comments HOLTER DOCUMENT (SCAN ORDER) Routine 10/15/2020 documented in this encounter Results * HOLTER DOCUMENT (10/15/2020) us Documents Scanned SCANNING Final Result [facility] documented in this encounter Visit Diagnoses Not on filedocumented in this encounter Additional Health Concerns Infection Onset Date Last Indicated Resolved Time C. difficile 10/20/2018 10/20/2018 documented as of this encounter
--- OUTSIDE RECORDS SUMMARY | 2024-10-10 01:41 | XMS_ITS | Encounter Summary ---
Author Organization [facility] Address [address] [place] [address]. [place] [address] [place] [address] Care Team Providers Care Ladle Filler Name Role Phone Unavailable Primary Care Provider Unavailabl e Encounter Details Date Type Department Care Team (Late st Contact Info) Description 08/10/2001 Abstract [facility] [address] [place] [address] , Generic Conversion, Social History Tobacco Use Types Packs/Day Years Used Date Smoking Tobacco: Never Assessed Comments Unknown Sex and Gender Information Value Date Recorded Sex Assigned at Not on file Legal Sex Female 9:48 PM CLIENT TECHNICAL PROFESSIONAL Gender Identity Not on file Sexual Orientation Not on file documented as of this encounter Plan of Treatment Not on file documented as of this encounter Visit Diagnoses Not on filedocumented in this encounter Additional Health Concerns Infection Onset Date Last Indicated Resolved Time C. difficile 10/20/2018 10/20/2018 documented as of this encounter
--- OUTSIDE RECORDS SUMMARY | 2024-10-10 01:41 | XMS_ITS | Encounter Summary ---
Author Organization [facility] Address [address] [place] [address]. 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 difficile 10/20/2018 10/20/2018 documented as of this encounter
--- OUTSIDE RECORDS SUMMARY | 2024-10-10 01:41 | XMS_ITS | Encounter Summary ---
Author Organization [facility] Address [address] [place] [address]. [place], [place] [address] [place] [address] Care Team Providers Care Financial Services Education Consultant Name Role Phone Unavailable Primary Care Provider Unavailabl e Encounter Details Date Type Department Care Team (Late st Contact Info) Description 1997 Abstract [facility] [address] [place] [address] , Generic Conversion, Social History Tobacco Use Types Packs/Day Years Used Date Smoking Tobacco: Never Assessed Comments Unknown Sex and Gender Information Value Date Recorded Sex Assigned at Not on file Legal Sex Female 9:48 PM BLACK POWDER GLAZING OPERATOR Gender Identity Not on file Sexual Orientation Not on file documented as of this encounter Plan of Treatment Not on file documented as of this encounter Visit Diagnoses Not on filedocumented in this encounter Additional Health Concerns Infection Onset Date Last Indicated Resolved Time C. difficile 10/20/2018 10/20/2018 documented as of this encounter
--- OUTSIDE RECORDS SUMMARY | 2024-10-10 01:41 | XMS_ITS | Encounter Summary ---
Author Organization [facility] Address [address] [place] [address]. [place] [address] [place] [address] Care Team Providers Care Green Building Materials Distributor Name Role Phone Unavailable Primary Care Provider Unavailabl e Encounter Details Date Type Department Care Team (Late st Contact Info) Description 10/29/2000 Abstract [facility] [address] [place] [address] , Generic Conversion, Social History Tobacco Use Types Packs/Day Years Used Date Smoking Tobacco: Never Assessed Comments Unknown Sex and Gender Information Value Date Recorded Sex Assigned at Not on file Legal Sex Female 9:48 PM AIRPLANE NAVIGATOR Gender Identity Not on file Sexual Orientation Not on file documented as of this encounter Plan of Treatment Not on file documented as of this encounter Visit Diagnoses Not on filedocumented in this encounter Additional Health Concerns Infection Onset Date Last Indicated Resolved Time C. difficile 10/20/2018 10/20/2018 documented as of this encounter
--- OUTSIDE RECORDS SUMMARY | 2024-10-10 01:41 | XMS_ITS | Encounter Summary ---
Author Organization [facility] Address [address] [place] [address]. [place] [address] [place] [address] Care Team Providers Care Distributed Generation Project Manager Name Role Phone Unavailable Primary Care Provider Unavailabl e Encounter Details Date Type Department Care Team (Late st Contact Info) Description 03/12/2019 Abstract [facility] [address] [place] [address] , Generic Conversion, Social History Tobacco Use Types Packs/Day Years Used Date Smoking Tobacco: Never Assessed Comments Unknown Sex and Gender Information Value Date Recorded Sex Assigned at Not on file Legal Sex Female 9:48 PM BOILER PLANT WORKER Gender Identity Not on file Sexual Orientation Not on file documented as of this encounter Plan of Treatment Not on file documented as of this encounter Visit Diagnoses Not on filedocumented in this encounter Additional Health Concerns Infection Onset Date Last Indicated Resolved Time C. difficile 10/20/2018 10/20/2018 documented as of this encounter
--- OUTSIDE RECORDS SUMMARY | 2024-10-10 01:41 | XMS_ITS | Encounter Summary ---
Author Organization [facility] Address [address] [place] [address]. [place] [address] [place] [address] Care Team Providers Care Police Dispatcher Name Role Phone Unavailable Primary Care Provider Unavailabl e Encounter Details Date Type Department Care Team (Late st Contact Info) Description 05/31/2006 Abstract [facility] [address] [place] [address] [place] [address] [place] [address] [place] [address] Social History Tobacco Use Types Packs/Day Years Used Date Smoking Tobacco: Never Assessed Comments Unknown Sex and Gender Information Value Date Recorded Sex Assigned at Not on file Legal Sex Female 9:48 PM DECKHAND Gender Identity Not on file Sexual Orientation Not on file documented as of this encounter Plan of Treatment Not on file documented as of this encounter Visit Diagnoses Not on filedocumented in this encounter Additional Health Concerns Infection Onset Date Last Indicated Resolved Time C. difficile 10/20/2018 10/20/2018 documented as of this encounter
--- OUTSIDE RECORDS SUMMARY | 2024-10-10 01:41 | XMS_ITS | Encounter Summary ---
Author Organization [facility] Address [address] [place] [address]. [place] [address] [place] [address] Care Team Providers Care Hatchery Helper Name Role Phone Unavailable Primary Care Provider Unavailabl e Encounter Details Date Type Department Care Team (Late st Contact Info) Description 08/22/2007 Abstract [facility] [facility] [place] [address] Pranay Velasquez MD [address] [id number] Social History Tobacco Use Types Packs/Day Years Used Date Smoking Tobacco: Never Assessed Comments Unknown Sex and Gender Information Value Date Recorded Sex Assigned at Not on file Legal Sex Female 9:48 PM RESIDENTIAL COLLECTIONS Gender Identity Not on file Sexual Orientation Not on file documented as of this encounter Plan of Treatment Not on file documented as of this encounter Visit Diagnoses Not on filedocumented in this encounter Additional Health Concerns Infection Onset Date Last Indicated Resolved Time C. difficile 10/20/2018 10/20/2018 documented as of this encounter
--- OUTSIDE RECORDS SUMMARY | 2024-10-10 01:41 | XMS_ITS | Encounter Summary ---
Author Organization [facility] Address [address] [place] [address]. [place] [address] [place] [address] Care Team Providers Care Piece Dye Worker Name Role Phone Unavailable Primary Care Provider Unavailabl e Encounter Details Date Type Department Care Team (Late st Contact Info) Description 10/07/2001 Abstract [facility] [address] [place] [address] , Generic Conversion, Social History Tobacco Use Types Packs/Day Years Used Date Smoking Tobacco: Never Assessed Comments Unknown Sex and Gender Information Value Date Recorded Sex Assigned at Not on file Legal Sex Female 9:48 PM AGRICULTURAL ECONOMIST Gender Identity Not on file Sexual Orientation Not on file documented as of this encounter Plan of Treatment Not on file documented as of this encounter Visit Diagnoses Not on filedocumented in this encounter Additional Health Concerns Infection Onset Date Last Indicated Resolved Time C. difficile 10/20/2018 10/20/2018 documented as of this encounter
--- OUTSIDE RECORDS SUMMARY | 2024-10-10 01:41 | XMS_ITS | Encounter Summary ---
Author Organization [facility] Address [address] [place] [address]. [place] [address] [place] [address] Care Team Providers Care Code And Test Clerk Name Role Phone Unavailable Primary Care Provider Unavailabl e Encounter Details Date Type Department Care Team (Late st Contact Info) Description 10/16/2006 Abstract [facility] [address] [place] [address] Jerry Peters MD [address] [place] [address] Social History Tobacco Use Types Packs/Day Years Used Date Smoking Tobacco: Never Assessed Comments Unknown Sex and Gender Information Value Date Recorded Sex Assigned at Not on file Legal Sex Female 9:48 PM HIDE WASHER Gender Identity Not on file Sexual Orientation Not on file documented as of this encounter Plan of Treatment Not on file documented as of this encounter Visit Diagnoses Not on filedocumented in this encounter Additional Health Concerns Infection Onset Date Last Indicated Resolved Time C. difficile 10/20/2018 10/20/2018 documented as of this encounter
--- OUTSIDE RECORDS SUMMARY | 2024-10-10 01:41 | XMS_ITS | Encounter Summary ---
Author Organization [facility] Address [address] [place] [address]. [place] [address] [place] [address] Care Team Providers Care Top Cleaner Name Role Phone Unavailable Primary Care Provider Unavailabl e Encounter Details Date Type Department Care Team (Late st Contact Info) Description 10/16/2000 Abstract [facility] [address] [place] [address] , Generic Conversion, Social History Tobacco Use Types Packs/Day Years Used Date Smoking Tobacco: Never Assessed Comments Unknown Sex and Gender Information Value Date Recorded Sex Assigned at Not on file Legal Sex Female 9:48 PM SECURITY TEAM LEAD Gender Identity Not on file Sexual Orientation Not on file documented as of this encounter Plan of Treatment Not on file documented as of this encounter Visit Diagnoses Not on filedocumented in this encounter Additional Health Concerns Infection Onset Date Last Indicated Resolved Time C. difficile 10/20/2018 10/20/2018 documented as of this encounter
--- OUTSIDE RECORDS SUMMARY | 2024-10-10 01:41 | XMS_ITS | Encounter Summary ---
Author Organization [facility] Address [address] [place] [address]. [place] [address] [place] [address] Care Team Providers Care Wildlife Refuge Manager Name Role Phone Unavailable Primary Care Provider Unavailabl e Encounter Details Date Type Department Care Team (Late st Contact Info) Description 03/17/2001 Abstract [facility] [address] [place] [address] Social History Tobacco Use Types Packs/Day Years Used Date Smoking Tobacco: Never Assessed Comments Unknown Sex and Gender Information Value Date Recorded Sex Assigned at Not on file Legal Sex Female 9:48 PM INDUSTRIAL PARAMEDIC Gender Identity Not on file Sexual Orientation Not on file documented as of this encounter Plan of Treatment Not on file documented as of this encounter Visit Diagnoses Not on filedocumented in this encounter
--- OUTSIDE RECORDS SUMMARY | 2024-10-10 01:41 | XMS_ITS | Encounter Summary ---
Author Organization [facility] Address [address] [place] [address]. [place] [address] [place] [address] Care Team Providers Care Pricing Intern Name Role Phone Unavailable Primary Care Provider Unavailabl e Encounter Details Date Type Department Care Team (Late st Contact Info) Description 12/07/2001 Abstract [facility] [address] [place] [address] , Generic Conversion, Social History Tobacco Use Types Packs/Day Years Used Date Smoking Tobacco: Never Assessed Comments Unknown Sex and Gender Information Value Date Recorded Sex Assigned at Not on file Legal Sex Female 9:48 PM SOLOIST DANCER Gender Identity Not on file Sexual Orientation Not on file documented as of this encounter Plan of Treatment Not on file documented as of this encounter Visit Diagnoses Not on filedocumented in this encounter Additional Health Concerns Infection Onset Date Last Indicated Resolved Time C. difficile 10/20/2018 10/20/2018 documented as of this encounter
--- OUTSIDE RECORDS SUMMARY | 2024-10-10 01:41 | XMS_ITS | Encounter Summary ---
Author Organization [facility] Address [address] [place] [address]. [place] [address] [place] [address] Care Team Providers Care City Constable Name Role Phone Unavailable Primary Care Provider Unavailabl e Encounter Details Date Type Department Care Team (Late st Contact Info) Description 07/06/2001 Abstract [facility] [address] [place] [address] , Generic Conversion, Social History Tobacco Use Types Packs/Day Years Used Date Smoking Tobacco: Never Assessed Comments Unknown Sex and Gender Information Value Date Recorded Sex Assigned at Not on file Legal Sex Female 9:48 PM BUILDINGS AND GROUNDS SUPERINTENDENT Gender Identity Not on file Sexual Orientation Not on file documented as of this encounter Plan of Treatment Not on file documented as of this encounter Visit Diagnoses Not on filedocumented in this encounter Additional Health Concerns Infection Onset Date Last Indicated Resolved Time C. difficile 10/20/2018 10/20/2018 documented as of this encounter
--- OUTSIDE RECORDS SUMMARY | 2024-10-10 01:41 | XMS_ITS | Encounter Summary ---
Author Organization [facility] Address [address] [place] [address]. [place], [place] [address] [place] [address] Care Team Providers Care Grinder Set Up Operator Universal Name Role Phone Unavailable Primary Care Provider Unavailabl e Encounter Details Date Type Department Care Team (Late st Contact Info) Description 1997 Abstract [facility] [address] [place] [address] , Generic Conversion, Social History Tobacco Use Types Packs/Day Years Used Date Smoking Tobacco: Never Assessed Comments Unknown Sex and Gender Information Value Date Recorded Sex Assigned at Not on file Legal Sex Female 9:48 PM AIRBORNE OPERATIONS SUPERINTENDENT Gender Identity Not on file Sexual Orientation Not on file documented as of this encounter Plan of Treatment Not on file documented as of this encounter Visit Diagnoses Not on filedocumented in this encounter Additional Health Concerns Infection Onset Date Last Indicated Resolved Time C. difficile 10/20/2018 10/20/2018 documented as of this encounter
--- OUTSIDE RECORDS SUMMARY | 2024-10-10 01:41 | XMS_ITS | Encounter Summary ---
Author Organization [facility] Address [address] [place] [address]. [place] [address] [place] [address] Care Team Providers Care Payroll Accounting Specialist Name Role Phone Unavailable Primary Care Provider Unavailabl e Encounter Details Date Type Department Care Team (Late st Contact Info) Description 06/03/2002 Abstract [facility] [address] [place] [address] , Generic Conversion, Social History Tobacco Use Types Packs/Day Years Used Date Smoking Tobacco: Never Assessed Comments Unknown Sex and Gender Information Value Date Recorded Sex Assigned at Not on file Legal Sex Female 9:48 PM HEAT PLANT SPECIALIST Gender Identity Not on file Sexual Orientation Not on file documented as of this encounter Plan of Treatment Not on file documented as of this encounter Visit Diagnoses Not on filedocumented in this encounter Additional Health Concerns Infection Onset Date Last Indicated Resolved Time C. difficile 10/20/2018 10/20/2018 documented as of this encounter
--- OUTSIDE RECORDS SUMMARY | 2024-10-10 01:41 | XMS_ITS | Encounter Summary ---
Author Organization [facility] Address [address] [place] [address]. [place] [address] [place] [address] Care Team Providers Care Imaging Center Manager Name Role Phone Unavailable Primary Care Provider Unavailabl e Encounter Details Date Type Department Care Team (Late st Contact Info) Description 09/28/2000 Abstract [facility] [address] [place] [address] , Generic Conversion, Social History Tobacco Use Types Packs/Day Years Used Date Smoking Tobacco: Never Assessed Comments Unknown Sex and Gender Information Value Date Recorded Sex Assigned at Not on file Legal Sex Female 9:48 PM MILL TENDER SECOND OPERATOR Gender Identity Not on file Sexual Orientation Not on file documented as of this encounter Plan of Treatment Not on file documented as of this encounter Visit Diagnoses Not on filedocumented in this encounter Additional Health Concerns Infection Onset Date Last Indicated Resolved Time C. difficile 10/20/2018 10/20/2018 documented as of this encounter
--- OUTSIDE RECORDS SUMMARY | 2024-10-10 01:41 | XMS_ITS | Encounter Summary ---
Author Organization [facility] Address [address] [place] [address]. [place] [address] [place] [address] Care Team Providers Care Ripsaw Operator Name Role Phone Unavailable Primary Care Provider Unavailabl e Encounter Details Date Type Department Care Team (Late st Contact Info) Description 10/20/[address] 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 difficile 10/20/2018 10/20/2018 documented as of this encounter
--- OUTSIDE RECORDS SUMMARY | 2024-10-10 01:41 | XMS_ITS | Encounter Summary ---
Author Organization [facility] Address [address] [place] [address]. 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 difficile 10/20/2018 10/20/2018 documented as of this encounter
--- OUTSIDE RECORDS SUMMARY | 2024-10-10 01:44 | XMS_ITS | Clinical Summary ---
Author Organization [facility] Address [address] [place] [address] Care Team Providers Care Indigo Vat Tender Cloth Name Role Phone No, Physician Primary Care Provider [phone] Allergies No known active allergies Medications no115/iron/fol [...] Blood pressures well controlled on N120XL and K784IDV. CBC/CMP WNL, UPC 0.1. Enrolled in remote [...] # Disposition: Follow up task sent to [facility] scheduling pool for appointments in 2 and 6 weeks. They are enrolled in remote blood pressure monitoring for their BP check. Desires discharge home today. Service Coverage These phones are service phones and carried 27/04 in house: R1 (first call) [phone] R1 alt (second call) [phone] R4 (Chief) [phone] 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 08/29/2024 [...] Blood pressures well controlled on N120XL and [id number]. Magnesium for seizure prophylaxis. #sinus tachycardia, intermittent: [...] found out that that would be in [place] he used an expletive to express that they would not be doing that Resolved Problems Problem Noted Date Diagnosed Date Resolved Date Abdominal pain 07/06/2012 04/15/2024 Encounters Date Type Department Care Team Description 10/07/2024 [place] [address] Nancy Noel, [facility] Initial Contact 09/30/2024 Encounter [facility] [address] [place] [address] 09/25/2024 Encounter [facility] [address] [place] [address] 09/19/2024 1:57 PM INTEGRITY MANAGER Anesthesia Event [address] [address] Sidra Ann MD Bailey, Cody Allen, MD 09/19/2024 1:30 PM INTEGRITY MANAGER - 09/19/2024 4:05 PM INTEGRITY MANAGER Surgery [address] [address] Josefina Peter MD SECTION 09/15/2024 9:00 AM INTEGRITY MANAGER Ancillary Procedure [address] [address] 09/08/2024 10:00 AM INTEGRITY MANAGER Ancillary Procedure [address] [address] 08/24/2024 12:30 PM INTEGRITY MANAGER Ancillary Procedure [address] [address] 08/16/2024 8:15 AM INTEGRITY MANAGER Ancillary Procedure [address] [address] 08/09/2024 9:30 AM INTEGRITY MANAGER Ancillary Procedure [address] [address] 08/05/2024 Telephone [facility] [address] [place] [address] Dia Mantilla MD 08/03/2024 11:34 AM CDT - 08/03/2024 11:59 PM CDT Hospital Encounter [facility] Pediatric Cardiology [facility] 2nd Floor [address] [place] [address] Discharge Disposition: Discharge to home or self care 08/03/2024 11:34 AM CDT - 08/03/2024 11:59 PM CDT Hospital Encounter [facility] Pediatric Cardiology [facility] 2nd Floor [address] [place] [address] Discharge Disposition: Discharge to home or self care 08/03/2024 Telephone [facility] [address] [place] [address] Dia Mantilla MD admission 08/02/2024 9:15 AM CDT Ancillary Procedure [address] 5th [place] [address] 07/29/2024 3:15 PM CDT - 07/29/2024 11:59 PM CDT Hospital Encounter [facility] [phone] Discharge Disposition: Discharge to home or self care 07/29/2024 2:42 AM CDT - 09/22/2024 11:26 AM INTEGRITY MANAGER Hospital Encounter [address] [address] Anastasia Amaro MD Bligard, MD Sumanth Fitzgerald Julia Ellen, MD Goodman, Sara Olsen MD Preeclampsia, unspecified trimester (Primary Dx); Twin , unable to determine number of placenta and number of amniotic sacs, antepartum, unspecified trimester [O30.099]; 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 Discharge Disposition: Discharge to home or self care 07/28/2024 9:32 PM CDT - 07/29/2024 1:41 AM CDT Hospital Encounter [facility] [address] [place] [address] Dia Mantilla MD Discharge Disposition: Discharge to a critical access hospital 07/28/2024 Telephone [facility] [address] [place] [address] Dia Mantilla MD 07/27/2024 3:59 PM CDT - 07/27/2024 11:59 PM CDT Hospital Encounter [address] [address] Discharge Disposition: Discharge to home or self care 07/27/2024 2:30 PM CDT Office Visit [facility] Maternal Medicine at [address] [address] Byron Tellez MD Unspecified high-risk (Primary Dx) 07/27/2024 12:18 PM CDT - 07/27/2024 11:59 PM CDT Hospital Encounter [facility] Maternal Medicine Ultrasound-[address] [address] High risk , antepartum; Monochorionic diamniotic twin , antepartum Discharge Disposition: Discharge to home or self care 07/27/2024 Orders Only [facility] Maternal Medicine at [address] [address] Dakota, Francine Twin , unable to determine number of placenta and number of amniotic sacs, antepartum, unspecified trimester (Primary Dx); BMI 40.0-44.9, adult (HCC); Maternal varicella, non-immune; Rh negative state in antepartum period; Long-term current use of antidepressant; Anxiety disorder, unspecified type 07/13/2024 2:30 PM CDT Office Visit [facility] Maternal Medicine at [address] [address] Nancy Be NP Unspecified high-risk (Primary Dx) 07/13/2024 11:25 AM CDT - 07/13/2024 11:59 PM CDT Hospital Encounter [facility] Maternal Medicine Ultrasound-[facility] [address] [place] [address] High risk , antepartum; Monochorionic diamniotic twin , antepartum Discharge Disposition: Discharge to home or self care 07/12/2024 10:55 AM CDT Lab [address] Encounter for supervision of normal first in first trimester 07/12/2024 10:30 AM CDT Routine [address] [place] [address] Dia Mantilla MD Twin , unable to determine number of placenta and number of amniotic sacs, antepartum, unspecified trimester (Primary Dx); Encounter for supervision of normal first in first trimester; 24 weeks gestation of 07/12/2024 10:00 AM CDT Ancillary Procedure [address] [place] [address] Ultrasound scan done for inability to hear heart tones 07/12/[address] [place] [address] Dia Mantilla MD Test Results from Last [...] Grandmother Cancer Neg Hx no colon or lens and frames prescription clerk cmt 04/15/24 Relation Name Status Comments Brother Father Maternal Grandfather Maternal Grandmother Mother Other 1 Other 2 Other 3 Other 4 Paternal Grandfather Paternal Grandmother Social History Tobacco Use Types Packs/Day Years Used Date Smoking Tobacco: Never Smokeless Tobacco: Never Tobacco Cessation:Counseling Given: Not Answered [facility] Utilities Answer Date Recorded In the past 12 months has e i-Neumatic[employer], oil, or water [employer] threatened to shut off services in your [...] week 07/29/2024 How often do you attend [facility] or anabaptist services? Never 07/29/2024 Do you belong to any clubs o r organizations such as restoration groups, unions, fraternal or athletic groups, or [...] you are drinking? Patient does not drink 10/24/202 4 Q3: How often do you have si [...] staff should administer the PHQ-9) 0 07/28/2024 [facility] - Occupational Stress Questionnaire Answer Date [...] things needed for daily living? No 07/29/2024 [place] Depression Scale Answer Date Recorded [place] Depression Scale Total 8 07/12/2024 The thought [...] any time in the past 12 m [facility], were you homeless or living in a [...] on file Legal Sex Female 2:19 AM INTEGRITY MANAGER Gender Identity Not on file Sexual [...] 9 9 Masood Clayton MD Complications:None Delivery Location:[facility] Main C ampus ([facility] L AND D PROCEDURE) 2023 34w 0d 0h 03m 0h 03m 1.92 kg (4 lb 3.7 oz) M C-Sec tion Combin ed Spinal /Epidu ral N Livin g 8 9 Masood Aguilera MD Complications:None Delivery Location:[facility] Main C ampus ([facility] L AND D PROCEDURE) Summary Episode Dates Number of Fetuses Estimated Date of Delivery 03/28/2024 - Present (10/10/2024) 2 10/31/2024 (set by Nasim Navas MA [...] anesthesia:Epidural Acceptable blood products:All Overview ACP- Alberto eLon Vitals Pregravid Weight Height TWG (As of 10/10/2024) Pregrav id BMI 119.7 kg (264 lb) 165.1 cm (5' 5 ) 9.072 kg (20 lb) 43 .93 Date GA Fund Present FHR Mvmt BP Weight Edema Alb Glu Ket Dil/ Eff/Sta 4 26w4d Inpatient data not displayed here. See encounter summary. 34w0d Inpatient data not displayed here. See encounter summary. Notes Progress Notes - Hospital En counter - 09/22/2024 - GA:34w0d 09/22/2024 - 34w0d - Ana Gauthier NP Post Progress Note Admission Date: 07/29/2024 SUBJECTIVE Suki Leon is a 29 y.o. postop day 3 s/p Regino Leon [[id number]] Morales Leon [[id number]] . Pain: Controlled Bleeding: lochia minimal Oral [...] ABORH O Negative 09/20/2024 IDCOOMB Negative 09/18/2024 [id number] Nonreactive 08/13/2024 LABRPR Nonreactive 08/13/2024 RUBELIGG Reactive [...] AND calcium gluconate AND Magnesium cyclobenzaprine ibuprofen estpmjq-spgmz-rvhtbcz ondansetron ODT OR ondansetron oxyCODONE simethicone sodium chloride 0.9% ASSESSMENT/PLAN Suki Leon is a 29 y.o. female postop day 3 s/p Regino Leon [[id number]] Morales Leon [[id number]] . Problem Care Following Delivery # ID: [...] Blood pressures well controlled on N120XL and K790AGV. CBC/CMP WNL, UPC 0.1. Enrolled in remote [...] # Disposition: Follow up task sent to [facility] scheduling pool for appointments in 2 and 6 weeks. They are enrolled in remote blood pressure monitoring for their BP check. Desires discharge home today. Service Coverage These phones are service phones and carried 27/04 in house: R1 (first call) [phone] R1 alt (second call) [phone] R4 (Chief) [phone] RYLAN Tena-Truong 09/22/24 Cosigned by Willie Kelly MD at 09/22/2024 4:18 PM INTEGRITY MANAGER GRITY MANAGER GRITY MANAGER 09/21/2024 - 34w0d - Marge Salguero RD [...] Adult Diet Regular Diet effective now Question: ([facility]) Diet type Answer: Regular 09/19/24 1634 Assessment / Impression: Attempted to see patient for follow-up nutrition screen, but she was not in the room at time of visit. She is on a regular diet and previously reported good PO intake. Per progress notes she plans to breast feed. Left breast feeding nutrition therapy education at bedside. Marge Castro MS, RD, [facility], LD Cell GRITY MANAGER 09/21/2024 - 34w0d - Millie Pierce LCSW Reason for Admission RITA (Suki Leon 1995) was admitted on 07/29/2024 for Preeclampsia, unspecified trimester [O14.90]. Social Work met with Suki Kraft Leon for check in. Medical History [employer] care has been established with [facility]. Pediatric follow-up to be scheduled throughout twins' admission to the [facility] NICU. Medical insurance coverage is through [employer] [place] [employer], [place]. Information Pt. delivered twin baby's with a of 09/19/24. Twins' EGA's are . Baby boy A's name is Regino and weighed 5lb 8.2oz at delivery. Baby boy B's name is Morales and weighed 4lb 3oz. Pt. delivered via . Babies were admitted to the [facility] NICU. Pt. plans to breast feed the twins and is currently pumping. These are the Pt.'s first children. [place] admitted to [facility] NICU re: prematurity, RDS. Social History Current address is [facility] [address] [place] [address], where she lives with her . Currently [phone] (home) is the best phone number for future contact. MOB reports that her and their families will be a positive support for her and her child. Father of the baby, Florentino Leon, can be reached at [phone]. FOB has been present and supportive at the hospital. Mood and Anxiety Maternal history of anxiety. SW and MOB discussed mental health and coping throughout inpatient [facility] admission. MOB continues to report manageable mood and is adjusting as expected to twins' admssion to [facility] NICU. SW and MOB discussed the signs [...] are provided in Welcome Folder. SW reviews [facility] NICU SW and [facility] support services available [...] lodging referrals (HASMUKH Garcia)- This clinician reviews [facility] resources, including waitlist and need for background checks to be completed prior to their entry. Family understanding and agreeable to referral- this clinician completes referral, as requested. [facility] SW provides support and encouragement. Family denies having any questions or concerns for this clinician. Strengths MOB is open and receptive to Social Work intervention, education, and resources. Safe Discharge Plan [facility] SW to collaborate with [facility] NICU SW (Sim Marino, ) for family care handoff, as needed. NICU SW will follow up with family throughout remainder of infant's admission to [facility]. No further [facility] SW needs indicated at this time. ARACELIS Tyler, TECHNICAL REPORT WRITER [facility] Clinical [employer] [facility] GRITY MANAGER 09/21/2024 - 34w0d - Ana Gauthier NP Post Progress Note Admission Date: 07/29/2024 SUBJECTIVE Suki Leon is a 29 y.o. postop day 2 s/p Tiffany Leon [[id number]] Nancy Leon [[id number]] . Pain: moderately Controlled Bleeding: lochia minimal [...] ABORH O Negative 09/20/2024 IDCOOMB Negative 09/18/2024 [id number] Nonreactive 08/13/2024 LABRPR Nonreactive 08/13/2024 RUBELIGG Reactive [...] AND calcium gluconate AND Magnesium cyclobenzaprine ibuprofen uihmubm-czwjo-advwmfo ondansetron ODT OR ondansetron oxyCODONE simethicone sodium chloride 0.9% varicella zoster ASSESSMENT/PLAN Suki Leon is a 29 y.o. female postop day 2 s/p Tiffany Leon [[id number]] Nancy Leon [[id number]] . Problem Care Following Delivery # ID: [...] Blood pressures well controlled on N120XL and Z825VUT. CBC/CMP WNL, UPC 0.1. Enrolled in remote [...] # Disposition: Follow up task sent to [facility] scheduling pool for appointments in 2 and 6 weeks. They are enrolled in remote blood pressure monitoring for their BP check. Continue routine postoperative care. Service Coverage These phones are service phones and carried 27/04 in house: R1 (first call) [phone] R1 alt (second call) [phone] R4 (Chief) [phone] RYLAN Tena-Truong 09/21/24 Cosigned by Angelica Amin MD at 09/21/2024 5:43 PM INTEGRITY MANAGER GRITY MANAGER GRITY MANAGER GRITY MANAGER Associated attestation - Angelica Amin MD - 09/21/2024 5:43 PM INTEGRITY MANAGER The nurse practitioner saw and examined the patient, we discussed their findings, and I am in agreement with the plan based on the discussion with the nurse practitioner. I did not personally examine the patient as she was out of her room at the time of rounding. Angelica Amin MD 09/20/2024 - 34w0d - Carola Espinal Chaplain Carola Murphy [facility] Spiritual Care Triage: [phone] 09/20/24 1300 Time Spent Start Time 1300 Stop Time 1315 Time Calculation (min) 15 min Clinical Encounter Type Visited With Patient Response Type Routine visit;Continuing visit Routine Visit Follow-up Reason for visit Support Outcomes and Progress Demonstrating care and respect Achieved Establish rapport and connectedness Achieved Interventions Interventions Offer emotional support GRITY MANAGER 09/20/2024 - 34w0d - Marielle Shanks DO Post Progress Note Delivery Date/Time: 09/19/2024t 2:59 PM Delivery method: Tiffany Leon [[id number]] [[id number]] Nancy Leon [[id number]] [351] Subjective Suki Leon is a 29 y.o. POD#1 from [facility]. Doing well this morning, does not like [...] AND calcium gluconate AND Magnesium HYDROmorphone ibuprofen lvvdxvs-kxsaj-bqglqtg naloxone ondansetron ondansetron ODT OR ondansetron oxyCODONE [...] Blood pressures well controlled on N120XL and T976BMG. CBC/CMP WNL, UPC 0.1. To be enrolled [...] # Disposition: Follow up task sent to [facility] scheduling pool for appointments in 2 and 6 weeks. They are enrolled in remote blood pressure monitoring for their BP check. Continue routine postoperative care. Service Coverage These phones are service phones and carried 27/04 in house: R1 (first call) [phone] R1 alt (second call) [phone] R4 (Chief) [phone] Marielle Shanks DO Resident Physician, PGY-1 Department of Obstetrics & Gynecology R4 Attestation I agree with the above documentation. POD#1 scheduled pLTCS for Shay and PreEwSF. Continues on MgSO4 until this afternoon 1500, BPs well controlled on current 2 agent regimen. Continue routine care. Sue Rodriguez MD PGY-4 Cosigned by Abigail Alberto MD at 09/20/2024 6:12 PM INTEGRITY MANAGER GRITY MANAGER GRITY MANAGER GRITY MANAGER Associated attestation - Abigail Alberto MD - 09/20/2024 6:12 PM INTEGRITY MANAGER I have seen and examined the patient [...] 18 BP: (123-140)/(77-87) 123/79 FHR: reactive NST [place]: no regular contractions Physical Exam General: No [...] Josefina Peter MD at 10/05/2024 8:24 PM INTEGRITY MANAGER GRITY MANAGER GRITY MANAGER Associated attestation - Josefina Peter MD - 10/05/2024 8:24 PM INTEGRITY MANAGER I have seen and examined the patient [...] 18 BP: (112-135)/(62-89) 135/89 FHR: reactive NST [place]: no regular contractions Physical Exam General: No [...] Sandra Christy MD at 09/18/2024 8:19 AM INTEGRITY MANAGER GRITY MANAGER GRITY MANAGER Associated attestation - Sandra Christy MD - 09/18/2024 8:19 AM INTEGRITY MANAGER I have seen and examined the patient. [...] BP: (117-136)/(76-91) 133/81 FHR: reactive NST x2 [place]: no regular contractions Physical Exam General: No [...] Sandra Christy MD at 09/17/2024 8:19 AM INTEGRITY MANAGER GRITY MANAGER GRITY MANAGER Associated attestation - Sandra Christy MD - 09/17/2024 8:19 AM INTEGRITY MANAGER I have seen and examined the patient. I agree with the findings and plan of care as documented in this note. Sandra Christy MD MS Maternal- Medicine 09/16/2024 - 33w4d - Carola Espinal Chaplain Carola Murphy [facility] Spiritual Care Triage: [phone] 09/16/24 1100 Time Spent Start Time 1100 Stop Time 1115 Time Calculation (min) 15 min Clinical Encounter Type Visited With Patient Response Type Routine visit;Continuing visit Routine Visit Follow-up Reason for visit Support Outcomes and Progress Demonstrating care and respect Achieved Establish rapport and connectedness Achieved Interventions Interventions Offer emotional support;Offer spiritual/anabaptist support;Prayer GRITY MANAGER 09/16/2024 - 33w4d - Leeanne Quinonez MD [...] BP: (119-136)/(70-83) 126/79 FHR: reactive NST x2 [place]: no regular contractions Physical Exam General: No [...] Sandra Christy MD at 09/16/2024 9:27 AM INTEGRITY MANAGER GRITY MANAGER GRITY MANAGER Associated attestation - Sandra Christy MD - 09/16/2024 9:27 AM INTEGRITY MANAGER I have seen and examined the patient. [...] testing. Joellen Schilling MD Maternal- Medicine Fellow GRITY MANAGER 09/15/2024 - 33w3d - Anastasia Sheppard MD [...] BP: (122-137)/(61-88) 124/61 FHR: reactive NST x2 [place]: no regular contractions Physical Exam General: No [...] Sandra Christy MD at 09/15/2024 11:55 AM INTEGRITY MANAGER GRITY MANAGER GRITY MANAGER Associated attestation - Sandra Christy MD - 09/15/2024 11:55 AM INTEGRITY MANAGER I have seen and examined the patient. [...] BP: (127-141)/(86-99) 140/91 FHR: reactive NST x2 [place]: no regular contractions Physical Exam General: No [...] note. Sandra Christy MD MS Maternal- Medicine GRITY MANAGER GRITY MANAGER 09/13/2024 - 33w1d - Millie Pierce LCSW [...] needs. SW remains available. ARACELIS Tyler, LEO [facility] Clinical [employer] Lieutenant [facility] GRITY MANAGER 09/13/2024 - 33w1d - Anastasia Sheppard MD [...] BP: (120-137)/(71-92) 131/84 FHR: reactive NST x2 [place]: no regular contractions Physical Exam General: No [...] Sandra Christy MD at 09/13/2024 10:29 AM INTEGRITY MANAGER GRITY MANAGER GRITY MANAGER Associated attestation - Sandra Christy MD - 09/13/2024 10:29 AM INTEGRITY MANAGER I have seen and examined the patient. I agree with the findings and plan of care as documented in this note. Sandra Christy MD MS Maternal- Medicine 09/12/2024 - w0d - Carola Espinal Chaplain Carola Murphy [facility] Spiritual Care Triage: [phone] 09/12/24 1045 Time Spent Start Time 1045 Stop Time 1100 Time Calculation (min) 15 min Clinical Encounter Type Visited With Patient Response Type Routine visit;Continuing visit Routine Visit Follow-up Reason for visit Support Outcomes and Progress Demonstrating care and respect Achieved Establish rapport and connectedness Achieved Interventions Interventions Offer emotional support;Offer spiritual/anabaptist support GRITY MANAGER 09/12/2024 - w0d - Leeanne Quinonez MD [...] BP: (120-143)/(76-90) 125/87 FHR: reactive NST x2 [place]: no regular contractions Physical Exam General: No [...] #lateral ventriculomegaly of twin B - fUS 11/5: Twin A: vertex, normal MVP, Twin B: [...] Sandra Christy MD at 09/12/2024 9:25 AM INTEGRITY MANAGER GRITY MANAGER GRITY MANAGER Associated attestation - Sandra Christy MD - 09/12/2024 9:25 AM INTEGRITY MANAGER I have seen and examined the patient. [...] BP: (124-139)/(79-87) 136/79 FHR: reactive NST x2 [place]: no regular contractions Physical Exam General: No [...] Sara Eng MD at 09/11/2024 9:48 AM INTEGRITY MANAGER GRITY MANAGER GRITY MANAGER Associated attestation - Sara Eng MD - 09/11/2024 9:48 AM INTEGRITY MANAGER I have seen and examined the patient [...] BP: (124-134)/(78-86) 125/81 FHR: reactive NST x2 [place]: no regular contractions Physical Exam General: No [...] 09/05 - RSV received (09/05) - Rhogam 10/28 - GBS neg 09/03 - MOD: TBD, IOL 09/19 @ 0530 - MOF: breast - MOC: nexplanon - AC: BID ppx lovenox Anastasia Plaza MD 09/10/24 Cosigned by Nini Cortez MD at 09/10/2024 3:14 PM INTEGRITY MANAGER GRITY MANAGER GRITY MANAGER Associated attestation - Nini Cortez MD - 09/10/2024 3:14 PM INTEGRITY MANAGER MFM Attending Attestation I have seen and [...] BP: (121-138)/(72-87) 130/76 FHR: reactive NST x2 [place]: no regular contractions Physical Exam General: No [...] Sara Eng MD at 09/09/2024 12:11 PM INTEGRITY MANAGER GRITY MANAGER GRITY MANAGER Associated attestation - Sara Eng MD - 09/09/2024 12:11 PM INTEGRITY MANAGER I have seen and examined the patient on 09/09/24. I agree with the findings and plan of care as documented in the resident's/fellow's note. Sara Eng MD. 09/08/2024 - 32w3d - Carola Espinal Chaplain Carola Murphy [facility] Spiritual Care Triage: [phone] 09/08/24 1100 Time Spent Start Time 1120 Stop Time 1140 Time Calculation (min) 20 min Clinical Encounter Type Visited With Patient Response Type Routine visit;Continuing visit Routine Visit Follow-up Reason for visit Support Outcomes and Progress Demonstrating care and respect Achieved Establish rapport and connectedness Achieved Interventions Interventions Offer emotional support;Offer spiritual/anabaptist support GRITY MANAGER 09/08/2024 - 32w3d - Anastasia Sheppard MD Antepartum Progress Note Gestational Age: 32w3d Admission Date: 07/29/2024 Length of stay: 41 Admission Diagnosis: preeclampsia with severe features otherwise affected by: Shay twins, 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 Review of Systems Negative except as per above OBJECTIVE Vitals: Temp: [36.6 ??C (97.9 ??F)-37 ??C (98.6 ??F)] 36.6 ??C (97.9 ??F) Pulse: [87-113] 95 Resp: [16-18] 18 BP: (119-138)/(61-87) 138/87 FHR: reactive NST x2 [place]: no regular contractions Physical Exam General: No [...] Sara Eng MD at 09/08/2024 10:42 AM INTEGRITY MANAGER GRITY MANAGER GRITY MANAGER GRITY MANAGER Associated attestation - Sara Eng MD - 09/08/2024 10:42 AM INTEGRITY MANAGER I have seen and examined the patient [...] Adult Diet Regular Diet effective now Question: ([facility]) Diet type Answer: Regular 07/29/24 1220 Assessment / Impression: Met with patient at bedside. She reported good appetite and PO intake. Recommend weekly weights. RD will continue to monitor. Marge Castro MS, RD, CNSC, LD Cell GRITY MANAGER 09/07/2024 - 32w2d - Anastasia Sheppard MD [...] BP: (117-173)/(71-96) 120/71 FHR: reactive NST x2 [place]: no regular contractions Physical Exam General: No [...] Sara Eng MD at 09/07/2024 9:34 AM INTEGRITY MANAGER GRITY MANAGER GRITY MANAGER Associated attestation - Sara Eng MD - 09/07/2024 9:34 AM INTEGRITY MANAGER I have seen and examined the patient [...] Rey Quinonez MD Obstetrics and Gynecology, PGY-2 GRITY MANAGER 09/06/2024 - 32w1d - Anastasia Sheppard MD [...] BP: (125-147)/(81-95) 128/87 FHR: reactive NST x2 [place]: no regular contractions Physical Exam General: No [...] Sara Eng MD at 09/06/2024 11:17 AM INTEGRITY MANAGER GRITY MANAGER GRITY MANAGER Associated attestation - Sara Eng MD - 09/06/2024 11:17 AM INTEGRITY MANAGER I have seen and examined the patient on 09/06/24. I agree with the findings and plan of care as documented in the resident's/fellow's note. Continue expectant management of preeclampsia with severe features. Sara nEg MD 09/05/2024 - 32w0d - Millie Pierce [...] cards SW remains available. ARACELIS Tyler, LEO [facility] [employer] [facility] GRITY MANAGER 09/05/2024 - 32w0d - Leeanne Quinonez MD [...] BP: (125-156)/(78-99) 125/86 FHR: reactive NST x2 [place]: no regular contractions Physical Exam General: No [...] Sara Eng MD at 09/05/2024 9:05 AM INTEGRITY MANAGER GRITY MANAGER GRITY MANAGER Associated attestation - Sara Eng MD - 09/05/2024 9:05 AM INTEGRITY MANAGER I have seen and examined the patient [...] BP: (127-141)/(78-90) 127/90 FHR: reactive NST x2 [place]: no regular contractions Physical Exam General: No [...] have edited where appropriate. Josefina Peter MD GRITY MANAGER GRITY MANAGER 09/03/2024 - 31w5d - Josefina Lamb MD [...] BP: (127-156)/(69-111) 132/88 FHR: reactive NST x2 [place]: no regular contractions Physical Exam General: No acute distress. Lungs: Non-labored. Abdomen: Deferred Extremities: Warm and well-perfused. No bilateral lower extremity calf tenderness. Trace non pitting lower extremity edema Pelvic: Deferred. Neurologic: Deferred Lab Review: Recent Labs Lab Units 09/03/24 0508/31/24 0608/28/24 0600 WBC K/cumm 12.1* 10.5* 10.3* HEMOGLOBIN g/dL 11.7* 11.5* 11.2* HEMATOCRIT % 34.0* 34.1* 33.0* PLATELETS K/cumm 273 282 289 Recent Labs Lab Units 09/03/24 0508/31/24 0620 08/28/24 0600 SODIUM mmol/L 139 137 [...] Thyroid studies WNL #Chronic headaches - Hx SHIPLYE inside and outside of , previously on [...] have edited where appropriate. Josefina Peter MD GRITY MANAGER GRITY MANAGER 09/02/2024 - w - Nelson Melendez MD R2 Update: Patient persistently MR, will give additional 30 mg NXL now and increase to 120 mg NXL tomorrow AM. Ashley Melendez MD MPH PGY2 OBGYN GRITY MANAGER 09/02/2024 - w4d - Maureen Clark MD Antepartum Progress Note [...] BP: (125-141)/(60-94) 125/60 FHR: reactive NST x2 [place]: no regular contractions Physical Exam General: No [...] Jessica Naranjo MD at 09/02/2024 9:53 AM INTEGRITY MANAGER GRITY MANAGER GRITY MANAGER Associated attestation - Jessica Naranjo MD - 09/02/2024 9:53 AM INTEGRITY MANAGER Images from the original note were not [...] Asymptomatic. Continue inpatient management. Jessica Naranjo MD Information Security Associate Division of Maternal- Medicine and Ultrasound Department of Obstetrics and Gynecology [facility] 09/02/2024 09/01/2024 - 31w3d - Luís Maureen Mandujano MD Antepartum Progress Note Gestational Age: [...] BP: (126-139)/(84-103) 131/91 FHR: reactive NST x2 [place]: no regular contractions Physical Exam General: No [...] NR - s/p flu vax 07/12, Tdap 11/5 - RSV at 32 wk (09/05) - Rhogam 08/01 - GBS neg 08/01 - MOD: TBD, IOL 09/19 @ 0530 - MOF: breast - MOC: nexplanon - AC: BID ppx lovenox Maureen Calix MD 09/01/24 Cosigned by Jessica Naranjo MD at 09/01/2024 9:34 AM INTEGRITY MANAGER GRITY MANAGER GRITY MANAGER Associated attestation - Jessica Naranjo MD - 09/01/2024 9:34 AM INTEGRITY MANAGER Images from the original note were not [...] Asymptomatic. Continue inpatient management. Jessica Naranjo MD Information Security Associate Division of Maternal- Medicine and Ultrasound Department of Obstetrics and Gynecology [facility] 09/01/2024 08/31/2024 - w2d - Maggi Huang [...] for pt's to travel between home and [facility] to provide support. SW remains available. Maggi Huang JAVA USER INTERFACE DEVELOPER, TECHNICAL REPORT WRITER Social Work GRITY MANAGER 08/31/2024 - w2d - Anastasia Sheppard MD [...] BP: (118-140)/(69-94) 140/94 FHR: reactive NST x2 [place]: no regular contractions Physical Exam General: No [...] AC: BID ppx lovenox Anastasia Plaza MD 11/27/24 Cosigned by Nini Cortez MD at 08/31/2024 12:26 PM INTEGRITY MANAGER GRITY MANAGER GRITY MANAGER Associated attestation - Nini Cortez MD - 08/31/2024 12:26 PM INTEGRITY MANAGER MFM Attending Attestation I have seen and examined the patient, Suki Leon, on 08/31/2024 and I am in agreement with the plan as documented in the resident/fellow/CARLI's note. Stable from preE standpoint. Continue inpatient management. Nini Cortez MD 08/31/2024 08/30/2024 - 31w1d - [facility] Antepartum Progress Note Gestational Age: 31w1d [...] BP: (132-137)/(75-92) 132/83 FHR: reactive NST x2 [place]: no regular contractions Physical Exam General: No [...] Nini Cortez MD at 08/30/2024 11:35 AM INTEGRITY MANAGER GRITY MANAGER GRITY MANAGER Associated attestation - Nini Cortez MD - 08/30/2024 11:35 AM INTEGRITY MANAGER MFM Attending Attestation I have seen and [...] BP: (123-145)/(75-92) 123/75 FHR: reactive NST x2 [place]: no regular contractions Physical Exam General: No [...] Nini Cortez MD at 08/29/2024 9:11 AM INTEGRITY MANAGER GRITY MANAGER GRITY MANAGER Associated attestation - Nini Cortez MD - 08/29/2024 9:11 AM INTEGRITY MANAGER MFM Attending Attestation I have seen and [...] Meena Khalil MD PGY-2 Obstetrics & Gynecology GRITY MANAGER 08/28/2024 - 30w6d - Anastasia Sheppard MD [...] BP: (130-135)/(84-97) 135/86 FHR: reactive NST x2 [place]: no regular contractions Physical Exam General: No [...] Kaela Mcallister MD at 08/28/2024 7:37 AM INTEGRITY MANAGER GRITY MANAGER GRITY MANAGER Associated attestation - Kaela Mcallister MD - 08/28/2024 7:37 AM INTEGRITY MANAGER I have seen and examined the patient [...] BP: (125-135)/(69-93) 127/84 FHR: reactive NST x2 [place]: no regular contractions Physical Exam General: No [...] Kaela Mcallister MD at 08/27/2024 8:46 AM INTEGRITY MANAGER GRITY MANAGER GRITY MANAGER Associated attestation - Kaela Mcallister MD - 08/27/2024 8:46 AM INTEGRITY MANAGER I have seen and examined the patient [...] BP: (124-138)/(74-92) 127/82 FHR: reactive NST x2 [place]: no regular contractions Physical Exam General: No [...] Byron Lakhani MD at 08/26/2024 1:03 PM INTEGRITY MANAGER GRITY MANAGER GRITY MANAGER Associated attestation - Byron Lakhani MD - 08/26/2024 1:03 PM INTEGRITY MANAGER I have seen and examined the patient [...] BP: (129-139)/(81-90) 130/90 FHR: reactive NST x2 [place]: no regular contractions Physical Exam General: No [...] Byron Lakhani MD at 08/25/2024 10:24 AM INTEGRITY MANAGER GRITY MANAGER GRITY MANAGER Associated attestation - Byron Lakhani MD - 08/25/2024 10:24 AM INTEGRITY MANAGER I have seen and examined the patient [...] BP: (129-142)/(79-95) 139/84 FHR: reactive NST x2 [place]: no regular contractions Physical Exam General: No [...] through Thursday 8a-7p APU R2 (first call) [phone] APU R3 (chief) [phone] Evenings 7p-8am Weekend Thursday 6pm through Thursday 8am Labor R2 (first call) [phone] Labor R4 (chief) [phone] Cosigned by Byron Lakhani MD at 08/24/2024 9:37 AM INTEGRITY MANAGER GRITY MANAGER GRITY MANAGER Associated attestation - Byron Lakhani MD - 08/24/2024 9:37 AM INTEGRITY MANAGER I have seen and examined the patient [...] BP: (128-139)/(78-90) 128/84 FHR: reactive NST x2 [place]: no regular contractions Physical Exam General: No [...] through Thursday 8a-7p APU R2 (first call) [phone] APU R3 (chief) [phone] Evenings 7p-8am Weekend Thursday 6pm through Thursday 8am Labor R2 (first call) [phone] Labor R4 (chief) [phone] Cosigned by Byron Lakhani MD at 08/23/2024 9:19 AM INTEGRITY MANAGER GRITY MANAGER GRITY MANAGER Associated attestation - Byron Lakhani MD - 08/23/2024 9:19 AM INTEGRITY MANAGER I have seen and examined the patient [...] Adult Diet Regular Diet effective now Question: ([facility]) Diet type Answer: Regular 07/29/24 1220 Assessment / Impression: Met with patient at bedside. She reported good appetite and PO intake. Recommend weekly weights. RD will continue to monitor. Marge Castro MS, RD, [facility], LD Cell GRITY MANAGER 08/22/2024 - 30w0d - Millie Pierce LCSW [...] IOL 09/19 SW remains available. ARACELIS Tyler, TECHNICAL REPORT WRITER [facility] Clinical [employer] [facility] GRITY MANAGER 08/22/2024 - 30w0d - Anastasia Sheppard MD [...] BP: (126-141)/(81-89) 134/89 FHR: reactive NST x2 [place]: no regular contractions Physical Exam General: No [...] through Thursday 8a-7p APU R2 (first call) [phone] APU R3 (chief) [phone] Evenings 7p-8am Weekend Thursday 6pm through Thursday 8am Labor R2 (first call) [phone] Labor R4 (chief) [phone] Cosigned by Byron Lakhani MD at 08/22/2024 9:45 AM INTEGRITY MANAGER GRITY MANAGER GRITY MANAGER Associated attestation - Byron Lakhani MD - 08/22/2024 9:45 AM INTEGRITY MANAGER I have seen and examined the patient [...] BP: (131-138)/(84-91) 131/84 FHR: reactive NST x2 [place]: no regular contractions Physical Exam General: No [...] through Thursday 8a-7p APU R2 (first call) [phone] APU R3 (chief) [phone] Evenings 7p-8am Weekend Thursday 6pm through Thursday 8am Labor R2 (first call) [phone] Labor R4 (chief) [phone] Cosigned by Libby Berman MD at 08/21/2024 9:27 AM INTEGRITY MANAGER GRITY MANAGER GRITY MANAGER Associated attestation - Libby Berman MD - 08/21/2024 9:27 AM INTEGRITY MANAGER I have seen and examined the patient [...] BP: (127-140)/(80-88) 140/88 FHR: reactive NST x2 [place]: no regular contractions Physical Exam General: No [...] through Thursday 8a-7p APU R2 (first call) [phone] APU R3 (chief) [phone] Evenings 7p-8am Weekend Thursday 6pm through Thursday 8am Labor R2 (first call) [phone] Labor R4 (chief) [phone] Cosigned by Leticia Barillas MD at 08/20/2024 7:16 AM INTEGRITY MANAGER GRITY MANAGER GRITY MANAGER Associated attestation - Leticia Barillas MD - 08/20/2024 7:16 AM INTEGRITY MANAGER I have personally seen and evaluated the patient, reviewed the documentation, and agree with the housestaff's assessment and plan. 08/19/2024 - 29w4d - Anastasia Sheppard MD Antepartum Progress Note [...] BP: (127-139)/(82-96) 127/82 FHR: reactive NST x2 [place]: no regular contractions Physical Exam General: No [...] through Thursday 8a-7p APU R2 (first call) [phone] APU R3 (chief) [phone] Evenings 7p-8am Weekend Thursday 6pm through Thursday 8am Labor R2 (first call) [phone] Labor R4 (chief) [phone] Cosigned by Leticia Barillas MD at 08/19/2024 9:49 AM INTEGRITY MANAGER GRITY MANAGER GRITY MANAGER Associated attestation - Leticia Barillas MD - 08/19/2024 9:49 AM INTEGRITY MANAGER I have personally seen and evaluated the patient, reviewed the documentation, and agree with the housestaff's assessment and plan. 08/18/2024 - 29w3d - Anastasia Sheppard MD Antepartum Progress Note [...] BP: (124-141)/(73-83) 124/81 FHR: reactive NST x2 [place]: no regular contractions Physical Exam General: No [...] through Thursday 8a-7p APU R2 (first call) [phone] APU R3 (chief) [phone] Evenings 7p-8am Weekend Thursday 6pm through Thursday 8am Labor R2 (first call) [phone] Labor R4 (chief) [phone] Cosigned by Leticia Barillas MD at 08/18/2024 5:08 PM INTEGRITY MANAGER GRITY MANAGER GRITY MANAGER Associated attestation - Leticia Barillas MD - 08/18/2024 5:08 PM INTEGRITY MANAGER I have personally seen and evaluated the [...] BP: (122-131)/(77-83) 131/77 FHR: reactive NST x2 [place]: no regular contractions Physical Exam General: No [...] through Thursday 8a-7p APU R2 (first call) [phone] APU R3 (chief) [phone] Evenings 7p-8am Weekend Thursday 6pm through Thursday 8am Labor R2 (first call) [phone] Labor R4 (chief) [phone] Cosigned by Leticia Barillas MD at 08/17/2024 8:25 AM INTEGRITY MANAGER GRITY MANAGER GRITY MANAGER Associated attestation - Leticia Barillas MD - 08/17/2024 8:25 AM INTEGRITY MANAGER I have personally seen and evaluated the [...] BP: (132-141)/(77-90) 132/78 FHR: reactive NST x2 [place]: no regular contractions Physical Exam General: No [...] through Thursday 8a-7p APU R2 (first call) [phone] APU R3 (chief) [phone] Evenings 7p-8am Weekend Thursday 6pm through Thursday 8am Labor R2 (first call) [phone] Labor R4 (chief) [phone] Cosigned by Leticia Barillas MD at 08/16/2024 9:45 AM INTEGRITY MANAGER GRITY MANAGER GRITY MANAGER Associated attestation - Leticia Barillas MD - 08/16/2024 9:45 AM INTEGRITY MANAGER I have personally seen and evaluated the [...] delivery SW remains available. ARACELIS Tyler, LEO [facility] Clinical [employer] [facility] GRITY MANAGER 08/15/2024 - w0d - Anastasia Sheppard MD Antepartum Progress Note [...] BP: (117-137)/(69-90) 131/85 FHR: reactive NST x2 [place]: no regular contractions Physical Exam General: No [...] through Thursday 8a-7p APU R2 (first call) [phone] APU R3 (chief) [phone] Evenings 7p-8am Weekend Thursday 6pm through Thursday 8am Labor R2 (first call) [phone] Labor R4 (chief) [phone] Cosigned by Leticia Barillas MD at 08/15/2024 8:57 AM INTEGRITY MANAGER GRITY MANAGER GRITY MANAGER Associated attestation - Leticia Barillsa MD - 08/15/2024 8:57 AM INTEGRITY MANAGER I have personally seen and evaluated the [...] BP: (125-130)/(76-85) 128/85 FHR: reactive NST x2 [place]: no regular contractions Physical Exam General: No [...] through Thursday 8a-7p APU R2 (first call) [phone] APU R3 (chief) [phone] Evenings 7p-8am Weekend Thursday 6pm through Thursday 8am Labor R2 (first call) [phone] Labor R4 (chief) [phone] Cosigned by Nini Knapp MD at 08/14/2024 7:19 AM INTEGRITY MANAGER GRITY MANAGER GRITY MANAGER Associated attestation - Nini Knapp MD - 08/14/2024 7:19 AM INTEGRITY MANAGER I have seen and examined the patient on 08/14/24. I agree with the findings and plan of care as documented in the resident's/fellow's note. Some new ear pain without other URI sypmtoms- will perform exam. 08/13/2024 - 28w5d - Nini Knapp MD err GRITY MANAGER 08/13/2024 - wd - Mariela Christian MD Antepartum Progress Note [...] BP: (121-139)/(73-85) 129/82 FHR: reactive NST x2 [place]: no regular contractions Physical Exam General: No [...] through Thursday 8a-7p APU R2 (first call) [phone] APU R3 (chief) [phone] Evenings 7p-8am Weekend Thursday 6pm through Thursday 8am Labor R2 (first call) [phone] Labor R4 (chief) [phone] Cosigned by Nini Knapp MD at 08/14/2024 7:15 AM INTEGRITY MANAGER GRITY MANAGER GRITY MANAGER Associated attestation - Nini Knapp MD - 08/14/2024 7:15 AM INTEGRITY MANAGER I have seen and examined the patient [...] BP: (123-137)/(77-89) 131/79 FHR: reactive NST x2 [place]: no regular contractions Physical Exam General: No [...] through Thursday 8a-7p APU R2 (first call) [phone] APU R3 (chief) [phone] Evenings 7p-8am Weekend Thursday 6pm through Thursday 8am Labor R2 (first call) [phone] Labor R4 (chief) [phone] Cosigned by Byron Lakhani MD at 08/12/2024 10:13 AM INTEGRITY MANAGER GRITY MANAGER GRITY MANAGER Associated attestation - Byron Lakhani MD - 08/12/2024 10:13 AM INTEGRITY MANAGER I have seen and examined the patient [...] BP: (126-140)/(68-92) 140/84 FHR: reactive NST x2 [place]: no regular contractions Physical Exam General: No [...] - MOF: breast - MOC: nexplanon Nadiya Fifi ARBOLEDA PhD Obstetrics & Gynecology - PGY 2 08/11/24 Antepartum Service Coverage Thursday through Thursday 8a-7p APU R2 (first call) [phone] APU R3 (chief) [phone] Evenings 7p-8am Weekend Thursday 6pm through Thursday 8am Labor R2 (first call) [phone] Labor R4 (chief) [phone] Cosigned by Byron Lakhani MD at 08/11/2024 9:19 AM INTEGRITY MANAGER GRITY MANAGER GRITY MANAGER Associated attestation - Byron Lakhani MD - 08/11/2024 9:19 AM INTEGRITY MANAGER I have seen and examined the patient [...] BP: (127-138)/(67-90) 135/71 FHR: reactive NST x2 [place]: no regular contractions Physical Exam General: No [...] through Thursday 8a-7p APU R2 (first call) [phone] APU R3 (chief) [phone] Evenings 7p-8am Weekend Thursday 6pm through Thursday 8am Labor R2 (first call) [phone] Labor R4 (chief) [phone] Cosigned by Byron Lakhani MD at 08/10/2024 8:54 AM INTEGRITY MANAGER GRITY MANAGER GRITY MANAGER Associated attestation - Byron Lakhani MD - 08/10/2024 8:54 AM INTEGRITY MANAGER I have seen and examined the patient [...] BP: (123-146)/(77-90) 128/79 FHR: reactive NST x2 [place]: no regular contractions Physical Exam General: No [...] through Thursday 8a-7p APU R2 (first call) [phone] APU R3 (chief) [phone] Evenings 7p-8am Weekend Thursday 6pm through Thursday 8am Labor R2 (first call) [phone] Labor R4 (chief) [phone] Cosigned by Byron Lakhani MD at 08/09/2024 10:16 AM INTEGRITY MANAGER GRITY MANAGER GRITY MANAGER GRITY MANAGER Associated attestation - Byron Lakhani MD - 08/09/2024 10:16 AM INTEGRITY MANAGER I have seen and examined the patient on 08/09/24. I agree with the findings and plan of care as documented in the resident's/fellow's note.. 08/08/2024 - 0d - Carola Espinal Chaplain Carola Murphy [facility] Spiritual Care Triage: [phone] 08/08/24 1400 Time Spent Start Time 1410 Stop Time 1420 Time Calculation (min) 10 min Patient Spiritual Assessment Spirituality Assessed Focus of Care Clinical Encounter Type Visited With Patient Response Type Routine visit Routine Visit Introduction Reason for visit Support Outcomes and Progress Demonstrating care and respect Achieved Interventions Interventions Offer emotional support;Offer spiritual/anabaptist support GRITY MANAGER 08/08/2024 - 0tasneem - Millie Pierce LCSW [...] social needs. SW remains available. Millie Pierce, ARACELIS, TECHNICAL REPORT WRITER [facility] Clinical [employer] [facility] GRITY MANAGER 08/08/2024 - 28w0d - Maureen Clark MD [...] BP: (133-149)/(74-91) 134/74 FHR: reactive NST x2 [place]: no regular contractions Physical Exam General: No [...] Byron Lakhani MD at 08/08/2024 9:57 AM INTEGRITY MANAGER GRITY MANAGER GRITY MANAGER Associated attestation - Byron Lakhani MD - 08/08/2024 9:57 AM INTEGRITY MANAGER I have seen and examined the patient on 08/08/24. I agree with the findings and plan of care as documented in the resident's/fellow's note.. 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 survey party chief availability) 08/07/2024 - 27w6d - Mariela Christian [...] BP: (129-142)/(77-82) 129/78 FHR: reactive NST x2 [place]: no regular contractions Physical Exam General: No [...] Eve Jenkins MD at 08/07/2024 7:23 AM INTEGRITY MANAGER GRITY MANAGER GRITY MANAGER Associated attestation - Eve Jenkins MD - 08/07/2024 7:23 AM INTEGRITY MANAGER Attending Attestation I have seen, examined, and discussed Suki Leon with Dr. Voss on 08/07/2024. I agree with the findings [...] BP: (115-138)/(67-90) 115/67 FHR: reactive NST x2 [place]: no regular contractions Physical Exam General: No [...] plan of care as documented. 08/05/2024 - 27w4d - Marge Salguero RD Nutrition Screen Note [...] Adult Diet Regular Diet effective now Question: ([facility]) Diet type Answer: Regular 07/29/24 1220 Assessment / Impression: Met with patient at bedside. She reported good appetite and PO intake. She reports pre- weight of 260#. Currently 284# as of 08/04. She is tolerating PNV. No nutrition needs identified at this time. RD will continue to monitor. Marge Castro MS, RD, CNSC, LD Cell 08/05/2024 - - Marge Conrad DO Transfusion Medicine Blood [...] future transfusions. Contact Information: Please contact the [facility] Transfusion Medicine Service at (option 1) with [...] Lr MD PhD 08/05/2024 - [facility]4d [facility] Antepartum Progress Note Gestational [...] BP: (132-144)/(77-94) 132/78 FHR: reactive NST x2 [place]: no regular contractions Physical Exam General: No [...] EKG/Min 110 BPM Atrial Rate 110 BPM [place]-Interval (MSEC) 122 ms QRS-Interval (MSEC) 78 ms QT-Interval (MSEC) 334 ms QTc 452 ms P [place] 52 degrees R [place] 5 degrees T [place] 25 degrees Diagnosis Sinus tachycardia Otherwise normal [...] nifedipine 90 mg qD. Jessica Naranjo MD Information Security Associate Division of Maternal- Medicine and Ultrasound Department of Obstetrics and Gynecology [facility] 08/05/2024 08/05/2024 - - Sue Meza MD MFM Update - delayed entry due to patient care Patient with persistent tachycardia s/p hydration and d-dimer >1000. Will order CT PE per protocol given meeting YEARS criteria. Sue Meza MD 08/04/2024w3d - Mariela Christian MD R3 Update To [...] MD Obstetrics and Gynecology PGY-3 08/04/2024 - 27w3d - Staley -Maureen Mandujano MD Antepartum Progress Note Gestational Age: 27w3d [...] BP: (122-139)/(72-85) 128/76 FHR: reactive NST x2 [place]: no regular contractions Physical Exam General: No [...] complete anatomic survey with particular focus on SECURITY GUARD anatomy of twin A today. Jessica Naranjo MD Information Security Associate Division of Maternal- Medicine and Ultrasound Department of Obstetrics and Gynecology [facility] 08/04/2024 08/03/2024 - 27w2d - [facility] Antepartum Progress Note Gestational Age: 27w2d [...] BP: (128-143)/(77-98) 137/84 FHR: reactive NST x2 [place]: no regular contractions Physical Exam General: No [...] XL 90 mg qD. Jessica Naranjo MD Information Security Associate Division of Maternal- Medicine and Ultrasound Department of Obstetrics and Gynecology [facility] 08/03/2024 08/02/2024 - 27w1d - Maureen Clark [...] BP: (128-143)/(73-89) 128/84 FHR: reactive NST x2 [place]: no regular contractions Physical Exam General: No [...] for MCDA twin . Jessica Naranjo MD Information Security Associate Division of Maternal- Medicine and Ultrasound Department of Obstetrics and Gynecology [facility] 08/02/2024 08/01/2024 - d - Millie Pierce LCSW Reason for Admission [...] delivery. SW remains available. ARACELIS Tyler, LEO [facility] Clinical [employer] [facility] 08/01/2024 - w0tasneem - Maureen Clark MD Antepartum Progress Note [...] x2 rare age appropriate variables, limited discontinuity [place]: no regular contractions Physical Exam General: No [...] of a preeclampsia headache. Jessica Naranjo MD Information Security Associate Division of Maternal- Medicine and Ultrasound Department of Obstetrics and Gynecology [facility] 08/01/2024 07/31/2024 - 26w6d - Staley Nazia, Maureen Mancini MD Antepartum Progress Note [...] variables with 1 hour reassuring monitoring afterwards [place]: no regular contractions Physical Exam General: No [...] normotensive to mild range on arrival to [facility] since transfer - Will give APAP + [...] stopped Mag due to stable BPs, started [id number] - normotensive to infrequent MR BPs SUBJECTIVE [...] BMI 47.26 kg/m?? FHR: reactive NST x2 [place]: no regular contractions Physical Exam General: No [...] normotensive to mild range on arrival to [facility] since transfer - Will give APAP + [...] 07/29/2024 - w4d - Nelson Short MD [facility] Obstetrics Triage Note Chief Complaint: elevated blood pressure, headache Estimated Date of Delivery: 10/31/24 Provider: [facility] - Annalee Weatherization Specialist: STEPHON Subjective HPI: Suki Leon is a 29 y.o. female at 26w3d weeks gestation, dated by 8 wk ultrasound, no consistent with LMP with Estimated Date of Delivery: 10/31/24 who presents to [facility] L&D Triage for elevated blood pressure. [...] Sex Type Anes PTL Lv 1 Current [employer] History: Patient's last menstrual period was 01/19/2024 [...] O Negative 06/18/2024 IDCOOMB Negative ABSC 06/18/2024 [id number] Nonreactive 05/20/2024 LABRPR Nonreactive 05/20/2024 RUBELIGG Reactive [...] Date of Delivery: 10/31/24 who presents to [facility] Triage for elevated blood pressure. - [...] to start magnesium and betamethasone, transfer to [facility] for further management. Plan discussed with Dr. Sterling. Norma Hagan MD Family Medicine PGY-2 [facility] Family Medicine Residency Cosigned by [...] have elected not to pursue echocardiogram at [facility] as the likelihood of identifying a [...] her care. I have discussed with Suki Xenia Leon (1995) the possibility that a with possible aortic coarctation may not be kept at [facility] after delivery. Dr. Dia Mantilla will have to evaluate whether or not twin a can be delivered at [facility]. It was unlikely that new [...] any separately reportable services. Voice recognition software [employer] was used to dictate and transcribe this document. Supervisor Covering And Lining variances may occur. Despite proof reading, typographical errors may occur. Progress Notes - Office Visi t - 07/13/2024 - GA:24w2d 07/13/2024 - w2d - Nancy Be NP Images from the original note were not included. Subjective/Objective Patient ID: Suki Leon is a 29 y.o. female. Chief Complaint Chief Complaint Patient presents with Follow-up HPI Suki returns to the [facility] office at 24 weeks and 2 [...] 10/31/24 - primary OB is Dr. Mantilla [facility] -Received Myriad Results: Foresight, Carrier [...] every 6 hours odd calendar days Recommendations: [facility] comanagement is recommended and we will [...] PM CDT Progress Notes - Routine Pre jose eduardo - 07/12/2024 - GA:24w1d 07/12/2024 - 24w1d - Dia Mantilla MD 24w1d Labs reviewed. - to vit d. To T&S and GCT (per [facility])- I dont see the vit D. She will go to have for tomorrow. To basa- she is taking. cfDNA testing- negative. RTO 4 weeks for gct and rhogam. [facility] appointments. - tomorrow. She got the flu shot today. Progress Notes - Office Visi t - 06/29/2024 - GA:22w2d 06/29/2024 - w - Nancy Be NP Subjective/Objective Patient ID: Suki Leon is a 29 y.o. female. Chief Complaint Chief Complaint Patient presents with Follow-up HPI Suki returns to the [facility] office at 22 weeks and 2 [...] 10/31/24 - primary OB is Dr. Mantilla, [facility] -Received Myriad Results: Foresight, Carrier [...] t - 06/15/2024 - GA:20w2d 06/15/2024 - w2d - Nancy Be NP Subjective/Objective Patient ID: Suki Leon is a 29 y.o. female. Chief Complaint Chief Complaint Patient presents with Follow-up HPI Suki returns to the [facility] office at 20 weeks and 2 [...] 10/31/24 - primary OB is Dr. Mantilla [facility] -Received Myriad Results: Foresight, Carrier [...] NP Progress Notes - Routine Pre - 06/13/2024 - GA:20w0d 06/13/2024 - 20w0d - Dia Mantilla MD 20w0d Labs reviewed. - to vit d. To T&S and GCT (per [facility]) [place] are better To basa- she is taking. cfDNA testing- negative. RTO 4 weeks [facility] appointments. - next is Thursday for anatomy scan. Progress Notes - Office Visi t - 05/31/2024 - GA:18w1d 05/31/2024 - 18w1d - Nancy Be NP Images from the original note were not included. Subjective/Objective Patient ID: Suki Leon is a 29 y.o. female. Chief Complaint Chief Complaint Patient presents with Follow-up HPI Suki returns to the [facility] office at 16 weeks and 2 [...] 10/31/24 - primary OB is Dr. Mantilla, [facility] -Received [employer] Results: Foresight, Carrier Screen: Negative Prequel, Screen: [...] tones. RTO 4 weeks with . Keep MFM appointments. Favio TAVAREZ Cosigned by Dia Mantilla MD at 05/25/2024 6:29 PM CDT Progress Notes - Office Visi t - 05/18/2024 - GA:16w2d 05/18/2024 - 16w2d - Ely Tellez MD Suki Leon (1995) is a new patient to the Maternal Medicine practice at [facility]. Suki Leon (1995) is a 29-year-old [...] to the Maternal Medicine practice here at [facility] for consultation and presumed co management of monochorionic diamniotic twin . Suki Leon (1995) primary sewing department supervisor is Dr. Dia Mantilla. Currently Suki Leon (1995) is planning delivery at [facility] under the care of Dr. 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 She was . Her , Florentino Leon, [...] any separately reportable services. Voice recognition software [employer] was used to dictate and transcribe this document. Supervisor Covering And Lining variances may occur. Despite proof reading, typographical errors may occur. Progress Notes - Orders Only - 04/25/2024 - GA:13w0d 04/25/2024 - w0d - Nasim Navas MA [phone] [facility] detailed message regarding referral. Progress Notes - Initial Pre - 04/15/2024 - GA:11w4d 04/15/2024 - - Dia Mantilla MD Images from the [...] found out that that would be in [place] he used an expletive to express that [...] Comments Blood Pressure 138/84 09/22/2024 8:36 AM INTEGRITY MANAGER Pulse 90 09/22/2024 8:36 AM INTEGRITY MANAGER Temperature 36.6 ??C (97.9 ??F) 09/22/2024 8:36 AM CS T Respiratory Rate 17 09/22/2024 8:36 AM INTEGRITY MANAGER Oxygen Saturation 99% 09/22/2024 8:36 AM INTEGRITY MANAGER Inhaled Oxygen Concentration - - Weight 128.8 [...] BLEED SCREEN Timed 09/20/2024 4: 48 AM INTEGRITY MANAGER ABO/RH Timed 09/20/2024 4:48 AM INTEGRITY MANAGER CBC WITHOUT DIFFERENTIAL Routine 09/20/2024 4:48 AM INTEGRITY MANAGER RH IMMUNE GLOBULIN EVAL Timed 09/20/2024 4:48 AM INTEGRITY MANAGER SURGICAL PATHOLOGY Routine 09/19/2024 4: 06 PM INTEGRITY MANAGER ANESTHESIA EPIDURAL BLOCK Routine 09/19/2024 2:45 PM INTEGRITY MANAGER SECTION 09/19/2024 1:56 PM INTEGRITY MANAGER TIUP Case Notes PreE w/ SF and Multiple gestation EGFR Timed 09/18/2024 6:21 AM INTEGRITY MANAGER COMPREHENSIVE METABOLIC PANEL Timed 09/18/2024 6:21 AM INTEGRITY MANAGER CBC WITHOUT DIFFERENTIAL Timed 09/18/2024 6:21 AM INTEGRITY MANAGER TYPE AND SCREEN Timed 09/18/2024 6:21 AM INTEGRITY MANAGER NONSTRESS TEST Routine 09/17/2024 2:58 PM INTEGRITY MANAGER Preeclampsia, unspecified trimester 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 US OB FOLLOW UP IP Routine 09/15/2024 1:08 PM INTEGRITY MANAGER EGFR Timed 09/15/2024 6:17 AM INTEGRITY MANAGER COMPREHENSIVE METABOLIC PANEL Timed 09/15/2024 6:17 AM INTEGRITY MANAGER CBC WITHOUT DIFFERENTIAL Timed 09/15/2024 6:17 AM INTEGRITY MANAGER TYPE AND SCREEN Timed 09/15/2024 6:17 AM INTEGRITY MANAGER NONSTRESS TEST Routine 09/13/2024 5:10 PM INTEGRITY MANAGER Preeclampsia, unspecified trimester 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 EGFR Timed 09/12/2024 6:35 AM INTEGRITY MANAGER COMPREHENSIVE METABOLIC PANEL Timed 09/12/2024 6:35 AM INTEGRITY MANAGER CBC WITHOUT DIFFERENTIAL Timed 09/12/2024 6:35 AM INTEGRITY MANAGER TYPE AND SCREEN Timed 09/12/2024 6:35 AM INTEGRITY MANAGER EGFR Timed 09/09/2024 6:24 AM INTEGRITY MANAGER COMPREHENSIVE METABOLIC PANEL Timed 09/09/2024 6:24 AM INTEGRITY MANAGER CBC WITHOUT DIFFERENTIAL Timed 09/09/2024 6:24 AM INTEGRITY MANAGER TYPE AND SCREEN Timed 09/09/2024 6:24 AM INTEGRITY MANAGER US OB LIMITED IP Routine 09/08/2024 10:29 AM INTEGRITY MANAGER NONSTRESS TEST Routine 09/06/2024 8:38 PM INTEGRITY MANAGER Preeclampsia, unspecified trimester 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 EGFR Timed 09/06/2024 4:31 AM INTEGRITY MANAGER COMPREHENSIVE METABOLIC PANEL Timed 09/06/2024 4:31 AM INTEGRITY MANAGER CBC WITHOUT DIFFERENTIAL Timed 09/06/2024 4:31 AM INTEGRITY MANAGER TYPE AND SCREEN Timed 09/06/2024 4:31 AM INTEGRITY MANAGER GROUP B STREPTOCOCCUS CULTURE Routine 09/03/2024 10:29 AM INTEGRITY MANAGER EGFR Timed 09/03/2024 5:26 AM INTEGRITY MANAGER COMPREHENSIVE METABOLIC PANEL Timed 09/03/2024 5:26 AM INTEGRITY MANAGER CBC WITHOUT DIFFERENTIAL Timed 09/03/2024 5:26 AM INTEGRITY MANAGER TYPE AND SCREEN Timed 09/03/2024 5:26 AM INTEGRITY MANAGER ECG 12-LEAD Routine 09/02/2024 4:33 PM INTEGRITY MANAGER EGFR Timed 08/31/2024 6:20 AM INTEGRITY MANAGER COMPREHENSIVE METABOLIC PANEL Timed 08/31/2024 6:20 AM INTEGRITY MANAGER CBC WITHOUT DIFFERENTIAL Timed 08/31/2024 6:20 AM INTEGRITY MANAGER TYPE AND SCREEN Timed 08/31/2024 6:20 AM INTEGRITY MANAGER NONSTRESS TEST Routine 08/29/2024 2:32 PM INTEGRITY MANAGER Preeclampsia, unspecified trimester 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 NONSTRESS TEST Routine 08/28/2024 7:47 PM INTEGRITY MANAGER Preeclampsia, unspecified trimester 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 EGFR Timed 08/28/2024 6:00 AM INTEGRITY MANAGER COMPREHENSIVE METABOLIC PANEL Timed 08/28/2024 6:00 AM INTEGRITY MANAGER CBC WITHOUT DIFFERENTIAL Timed 08/28/2024 6:00 AM INTEGRITY MANAGER TYPE AND SCREEN Timed 08/28/2024 6:00 AM INTEGRITY MANAGER EGFR Timed 08/25/2024 6:19 AM INTEGRITY MANAGER COMPREHENSIVE METABOLIC PANEL Timed 08/25/2024 6:19 AM INTEGRITY MANAGER CBC WITHOUT DIFFERENTIAL Timed 08/25/2024 6:19 AM INTEGRITY MANAGER TYPE AND SCREEN Timed 08/25/2024 6:19 AM INTEGRITY MANAGER US OB FOLLOW UP IP Routine 08/24/2024 9:37 AM INTEGRITY MANAGER EGFR Timed 08/22/2024 6:02 AM INTEGRITY MANAGER COMPREHENSIVE METABOLIC PANEL Timed 08/22/2024 6:02 AM INTEGRITY MANAGER CBC WITHOUT DIFFERENTIAL Timed 08/22/2024 6:02 AM INTEGRITY MANAGER TYPE AND SCREEN Timed 08/22/2024 6:02 AM INTEGRITY MANAGER EGFR Timed 08/19/2024 6:25 AM INTEGRITY MANAGER COMPREHENSIVE METABOLIC PANEL Timed 08/19/2024 6:25 AM INTEGRITY MANAGER CBC WITHOUT DIFFERENTIAL Timed 08/19/2024 6:25 AM INTEGRITY MANAGER TYPE AND SCREEN Timed 08/19/2024 6:25 AM INTEGRITY MANAGER US OB LIMITED IP Routine 08/16/2024 8:35 AM INTEGRITY MANAGER ANTIBODY IDENTIFICATION Routine 08/16/2024 7:34 AM INTEGRITY MANAGER EGFR Timed 08/16/2024 6:15 AM INTEGRITY MANAGER THYROID FUNCTION CASCADE Routine 08/16/2024 6:15 AM INTEGRITY MANAGER COMPREHENSIVE METABOLIC PANEL Timed 08/16/2024 6:15 AM INTEGRITY MANAGER CBC WITHOUT DIFFERENTIAL Timed 08/16/2024 6:15 AM INTEGRITY MANAGER TYPE AND SCREEN Timed 08/16/2024 6:15 AM INTEGRITY MANAGER POCT GLUCOSE DEVICE Routine 08/14/2024 3 :06 PM INTEGRITY MANAGER ECG 12-LEAD Routine 08/13/2024 9:02 AM INTEGRITY MANAGER ANTIBODY IDENTIFICATION Routine 08/13/2024 7:42 AM INTEGRITY MANAGER EGFR Timed 08/13/2024 5:44 AM INTEGRITY MANAGER COMPREHENSIVE METABOLIC PANEL Timed 08/13/2024 5:44 AM INTEGRITY MANAGER CBC WITHOUT DIFFERENTIAL Timed 08/13/2024 5:44 AM INTEGRITY MANAGER TYPE AND SCREEN Timed 08/13/2024 5:44 AM INTEGRITY MANAGER RPR Routine 08/13/2024 5:44 AM INTEGRITY MANAGER HIV 1/2 ANTIBODY PLUS P24 ANTIGEN Routine 08/13/2024 5:44 AM INTEGRITY MANAGER GTT 50GM 1HR GESTATIONAL SCREEN Timed 08/12/2024 11:29 AM INTEGRITY MANAGER ANTIBODY IDENTIFICATION Routine 08/10/2024 7:02 AM INTEGRITY MANAGER EGFR Timed 08/10/2024 4:49 AM INTEGRITY MANAGER COMPREHENSIVE METABOLIC PANEL Timed 08/10/2024 4:49 AM INTEGRITY MANAGER CBC WITHOUT DIFFERENTIAL Timed 08/10/2024 4:49 AM INTEGRITY MANAGER TYPE AND SCREEN Timed 08/10/2024 4:49 AM INTEGRITY MANAGER US OB 14 WEEKS OR OVER IP Routine 08/09/2024 9:47 AM INTEGRITY MANAGER ANTIBODY IDENTIFICATION Routine 08/07/2024 6:51 AM INTEGRITY MANAGER EGFR Timed 08/07/2024 5:00 AM INTEGRITY MANAGER COMPREHENSIVE METABOLIC PANEL Timed 08/07/2024 5:00 AM INTEGRITY MANAGER CBC WITHOUT DIFFERENTIAL Timed 08/07/2024 5:00 AM INTEGRITY MANAGER TYPE AND SCREEN Timed 08/07/2024 4:[address] CHEST PE W CONTRAST ED Urgent/IP [...] Rh Immune Globulin Eval (09/20/2024 4:48 AM INTEGRITY MANAGER) RhIg Administration 1 vial of Rh Immune Globulin (300 mcg dose) RhIg Eligible Yes, eligible [facility] Blood 09/20/2024 4:48 AM INTEGRITY MANAGER 09/20/2024 5:03 AM INTEGRITY MANAGER Narrative [facility] - 09/20/2024 5:36 AM INTEGRITY MANAGER Number of weeks ?->20 weeks or greater antibody screen result:->Negative Rhogam given?->Given Date Given?->08/01/24 Number of vials requested:->1 Sara Eng MD LAB BLOOD BANK TEST ORDERABL ES Final Result Performing Organization Address City/[facility] Co de Phone Number [facility] [address] [place] [address] * Bleed Screen (09/20/2024 4:48 AM INTEGRITY MANAGER) Bleed Screen Negative Blood 09/20/2024 4:48 AM INTEGRITY MANAGER 09/20/2024 5:03 AM INTEGRITY MANAGER Rey Quinonez MD LAB BLOOD BANK TEST ORDERABLE S Final Result Performing Organization Address City/[facility]/ZIP Co de Phone Number [facility] Department [place] [address] * ABO/Rh (09/20/2024 4:48 AM INTEGRITY MANAGER) ABO Rh O Negative Blood 09/20/2024 4:48 AM INTEGRITY MANAGER 09/20/2024 5:03 AM INTEGRITY MANAGER Rey Quinonez MD LAB BLOOD BANK TEST ORDERABLE S Final Result Performing Organization Address City/[facility]/ZIP Co de Phone Number [facility] [place] [address] * (ABNORMAL) CBC without differential (09/20/2024 4:48 AM INTEGRITY MANAGER) WBC 10.3(H) 3.8 - 9.9 K/cumm Hgb 9.7(L) 11.9 - 15.5 g/dL [facility] Hct 28.4(L) 35.6 - 45.5 % [facility] Plt 230 150 - 400 K/cumm [facility] MPV 10.8 9.1 - 12.3 fL [facility] RBC 3.22(L) 3.90 - 5.20 M/cumm [facility] MCV 88.2 81.3 - 96.4 fL [facility] MCH 30.1 27.1 - 33.3 pg [facility] MCHC 34.2 32.3 - 35.7 g/dL [facility] RDW CV 13.9 11.1 - 14.9 % [facility] RDW SD 44.6 35.7 - 48.1 fL [facility] NRBC abs 0.00 0.00 - 0.01 K/cumm [facility] Blood 09/20/2024 4:48 AM INTEGRITY MANAGER 09/20/2024 5:11 AM INTEGRITY MANAGER us Sara Eng MD LAB BLOOD ORDERABLES Final R esult [facility] Department [place] [address] * Surgical pathology (09/19/2024 4:06 PM INTEGRITY MANAGER) Tissue (Placenta) 09/19/2024 4:06 PM INTEGRITY MANAGER 09/20/2024 8:37 AM INTEGRITY MANAGER Narrative PATHOLOGY [facility] - 09/26/2024 2:16 PM INTEGRITY MANAGER EPIC results best viewed via link to PDF [facility] Brown [facility] [place] [address] Note to Patients: This report may contain [...] Gender: ??F : ??1995 (Age: 29) Address: ??[address] [place] [address] ??[id number] Hospital #: ??[id number] Taken:09/19/2024 Received:09/20/2024 Reported: 09/26/2024 Patient Type: [facility] Inpatient ?? Service: Obstetrics Location: [facility] ??6800 Physician(s): ??MD Sara Parker M.D. Diagnosis: ??Placenta, delivery - 662 grams diamnionic, monochorionic, pre-term twin placenta - Acute atherosis - Accelerated villous maturation -Trivascular cords with no histopathologic abnormalities [facility]/09/26/2024 14:16 By this signature, I attest that [...] discrete lesions or infarcts are grossly identified. ??Program Services Assistant sections are submitted: ??A1 = arbitrarily assigned twin A, cord and membranes; A2-4 = twin A, public health representative parenchyma; A5 = common membrane and T- zone; A6 = arbitrarily assigned twin B, cord and membranes; A7-9 = twin B, public health representative parenchyma. ??Jar 3. ? sxv/09/21/2024 11:11 PA(s): Catalino Hernandez MS, FREDRICK ([facility])CM By this signature, I attest that the above diagnosis is based upon my personal examination of the slides(and/or other material). Addenda/Procedures The performance characteristics of some immunohistochemical stains, fluorescence in-situ hybridization tests and immunophenotyping by flow cytometry cited in this report (if any) were determined by the Surgical Pathology and Flow Cytometry Departments at [facility] as part of an ongoing quality tech program and in compliance with federally mandated [...] Surgical Pathology and Flow Cytometry Departments of [facility]. ??It has not been cleared or approved by the U. S. Food and Drug Administration. IMAGES AND SCANNED DOCUMENTS, IF INCLUDED, ONLY VIEWABLE IN PDF VERSION OF REPORT us Sara Eng MD LAB PATHOLOGY ORDERABLES Fin al Result PATHOLOGY [facility] [address]rd Floor [place], [place] [phone] * Epidural Block (09/19/2024 2:45 PM INTEGRITY MANAGER) Narrative Abena Denton MD - 09/19/2024 2:45 PM INTEGRITY MANAGER Abena Denton MD ? 09/19/2024 ??2:50 PM [...] Final Result * eGFR (09/18/2024 6:21 AM INTEGRITY MANAGER) eGFR >90 >=60 mL/min/1. 73 m2 Comment: [...] last reviewed 2021. Blood 09/18/2024 6:21 AM INTEGRITY MANAGER 09/18/2024 6:32 AM INTEGRITY MANAGER us Anastasia Amaro MD LAB BLOOD ORDERABLES Final Result [facility] Department [place] [address] * (ABNORMAL) CBC without differential (09/18/2024 6:21 AM INTEGRITY MANAGER) WBC 10.0(H) 3.8 - 9.9 K/cumm Hgb 11.6(L) 11.9 - 15.5 g/dL [facility] Hct 34.0(L) 35.6 - 45.5 % [facility] Plt 250 150 - 400 K/cumm [facility] MPV 11.0 9.1 - 12.3 fL [facility] RBC 3.92 3.90 - 5.20 M/cumm [facility] MCV 86.7 81.3 - 96.4 fL [facility] MCH 29.6 27.1 - 33.3 pg [facility] MCHC 34.1 32.3 - 35.7 g/dL [facility] RDW CV 13.7 11.1 - 14.9 % [facility] RDW SD 43.1 35.7 - 48.1 fL [facility] NRBC abs 0.00 0.00 - 0.01 K/cumm [facility] Blood 09/18/2024 6:21 AM INTEGRITY MANAGER 09/18/2024 6:32 AM INTEGRITY MANAGER Anastasia Amaro MD LAB BLOOD ORDERABLES Final Result Performing Organization Address City/[facility] Co de Phone Number [facility] [place] [address] * Type and screen (09/18/2024 6:21 AM INTEGRITY MANAGER) [facility] Abiodun, indirect Negative ABO Rh O Negative [facility] Blood 09/18/2024 6:21 AM INTEGRITY MANAGER 09/18/2024 6:35 AM INTEGRITY MANAGER Narrative [facility] - 09/18/2024 7:42 AM INTEGRITY MANAGER Has the patient had Daratumumab or Isatuximab in the past 6 months?->Unknown Anastasia Amaro MD LAB BLOOD BANK TEST ORDERA BLES Final Result Performing Organization Address [facility] Co de Phone Number [facility] Department [place] [address] * (ABNORMAL) Comprehensive metabolic panel (09/18/2024 6:21 AM INTEGRITY MANAGER) Pathologist [facility] Sodium 134(L) 135 - 145 mmol/L Potassium, pl 3.8 3.3 - 4.9 mmol/L [facility] Chloride 105 97 - 110 mmol/L [facility] CO2 23 22 - 32 mmol/L [facility] Anion gap 6 2 - 15 mmol/L [facility] BUN 9 6 - 25 mg/dL [facility] Creatinine 0.69 0.60 - 1.10 mg/dL [facility] Glucose 68(L) 70 - 199 mg/dL [facility] Comment: Interpretive Data Fasting glucose >/= [...] 2022. Calcium 9.0 8.5 - 10.3 mg/dL [facility] Bilirubin, total 0.2 0.1 - 1.2 mg/dL [facility] Protein, pl 6.3(L) 6.5 - 8.5 g/dL [facility] Albumin 3.0(L) 3.5 - 5.0 g/dL [facility] Alk phos 125 40 - 130 Units/L [facility] ALT 14 7 - 45 Units/L [facility] AST 16 10 - 45 Units/L [facility] Blood 09/18/2024 6:21 AM INTEGRITY MANAGER 09/18/2024 6:32 AM INTEGRITY MANAGER us Anastasia Amaro MD LAB BLOOD ORDERABLES Final Result Performing Organization Address City/State/[facility] Co de Phone Number [facility] Department [place] [address] * nonstress test (09/17/2024 2:58 PM INTEGRITY MANAGER) Narrative Sandra Christy MD - 09/17/2024 2:58 PM INTEGRITY MANAGER Joellen Schilling MD ? 09/17/2024 ??4:04 PM nonstress test Date/Time: 09/17/2024 2:58 PM Performed by: Maureen Calix MD Authorized by: Ana M Rogers MD ?? us Ana M Rogers MD OB GYNE ORDERABLES Fi nal Result * US Ob Follow Up (09/15/2024 1:08 PM INTEGRITY MANAGER) Fetus# Fetus1 VIEWPOINT Estimated Weight 1,709 g&grams VIEWPOINT Placenta Details anterior VIEWPOINT Presentation Vertex; Maternal right- low VIEWPOINT Fetus# Fetus2 VIEWPOINT Estimated Weight 2,585 g&grams VIEWPOINT Placenta Details anterior VIEWPOINT Presentation Vertex; Maternal left- high VIEWPOINT Anatomical Region Laterality Modality Abdomen N/A Ultrasound 09/15/2024 1:08 PM INTEGRITY MANAGER Impressions 09/15/2024 2:24 PM INTEGRITY MANAGER Diamniotic (presumed MCDA) TIUP at 33w33d who is admitted for preE with severe features who presents for growth US was previously determined to be monochorionic by the [facility] MFM practice. A thin dividing membrane [...] previously determined to be monochorionic by the [facility] MFMpractice. A thin dividing membrane and [...] R esult * eGFR (09/15/2024 6:17 AM INTEGRITY MANAGER) eGFR >90 >=60 mL/min/1. 73 m2 Comment: [...] last reviewed 2021. Blood 09/15/2024 6:17 AM INTEGRITY MANAGER 09/15/2024 6:31 AM INTEGRITY MANAGER us Anastasia Amaro MD LAB BLOOD ORDERABLES Final Result [facility] Department [place] [address] * (ABNORMAL) CBC without differential (09/15/2024 6:17 AM INTEGRITY MANAGER) WBC 10.1(H) 3.8 - 9.9 K/cumm Hgb 11.7(L) 11.9 - 15.5 g/dL [facility] Hct 34.6(L) 35.6 - 45.5 % [facility] Plt 253 150 - 400 K/cumm [facility] MPV 11.2 9.1 - 12.3 fL [facility] RBC 3.94 3.90 - 5.20 M/cumm [facility] MCV 87.8 81.3 - 96.4 fL [facility] MCH 29.7 27.1 - 33.3 pg [facility] MCHC 33.8 32.3 - 35.7 g/dL [facility] RDW CV 13.8 11.1 - 14.9 % [facility] RDW SD 44.1 35.7 - 48.1 fL [facility] NRBC abs 0.00 0.00 - 0.01 K/cumm [facility] Blood 09/15/2024 6:17 AM INTEGRITY MANAGER 09/15/2024 6:31 AM INTEGRITY MANAGER Anastasia Amaro MD LAB BLOOD ORDERABLES Final Result Performing Organization Address [facility] de Phone Number [facility] [address] [place] [address] * Type and screen (09/15/2024 6:17 AM INTEGRITY MANAGER) Pathologist [facility] Abiodun, indirect Negative Comment:Patient has previous antibody history ABO Rh O Negative [facility] Blood 09/15/2024 6:17 AM INTEGRITY MANAGER 09/15/2024 6:30 AM INTEGRITY MANAGER Narrative [facility] - 09/15/2024 7:57 AM INTEGRITY MANAGER Has the patient had Daratumumab or Isatuximab in the past 6 months?->Unknown Anastasia Amaro MD LAB BLOOD BANK TEST ORDERA BLES Final Result Performing Organization Address [facility] de Phone Number [facility] Department of [address] [place] [address] * (ABNORMAL) Comprehensive metabolic panel (09/15/2024 6:17 AM INTEGRITY MANAGER) Pathologist [facility] Sodium 139 135 - 145 mmol/L Potassium, pl 3.5 3.3 - 4.9 mmol/L [facility] Chloride 106 97 - 110 mmol/L [facility] CO2 21(L) 22 - 32 mmol/L [facility] Anion gap 12 2 - 15 mmol/L [facility] BUN 8 6 - 25 mg/dL [facility] Creatinine 0.66 0.60 - 1.10 mg/dL [facility] Glucose 106 70 - 199 mg/dL [facility] Comment: Interpretive Data Fasting glucose >/= [...] 2022. Calcium 9.0 8.5 - 10.3 mg/dL [facility] Bilirubin, total <0.2 0.1 - 1.2 mg/dL [facility] Protein, pl 6.4(L) 6.5 - 8.5 g/dL [facility] Albumin 3.0(L) 3.5 - 5.0 g/dL [facility] Alk phos 124 40 - 130 Units/L [facility] ALT 19 7 - 45 Units/L [facility] AST 20 10 - 45 Units/L [facility] Blood 09/15/2024 6:17 AM INTEGRITY MANAGER 09/15/2024 6:31 AM INTEGRITY MANAGER Anastasia Amaro MD LAB BLOOD ORDERABLES Final Result [facility] Department [place] [address] * nonstress test (09/13/2024 5:10 PM INTEGRITY MANAGER) Narrative Sandra Christy MD - 09/13/2024 5:10 PM INTEGRITY MANAGER BolaAnastasia Bay MD ? 09/13/2024 ??5:21 PM [...] nal Result * eGFR (09/12/2024 6:35 AM INTEGRITY MANAGER) eGFR >90 >=60 mL/min/1. 73 m2 Comment: [...] last reviewed 2021. Blood 09/12/2024 6:35 AM INTEGRITY MANAGER 09/12/2024 6:51 AM INTEGRITY MANAGER us Anastasia Amaro MD LAB BLOOD ORDERABLES Final Result [facility] Department [place] [address] * (ABNORMAL) CBC without differential (09/12/2024 6:35 AM INTEGRITY MANAGER) WBC 10.0(H) 3.8 - 9.9 K/cumm Hgb 11.8(L) 11.9 - 15.5 g/dL [facility] Hct 35.3(L) 35.6 - 45.5 % [facility] Plt 226 150 - 400 K/cumm [facility] MPV 11.2 9.1 - 12.3 fL [facility] RBC 3.97 3.90 - 5.20 M/cumm [facility] MCV 88.9 81.3 - 96.4 fL [facility] MCH 29.7 27.1 - 33.3 pg [facility] MCHC 33.4 32.3 - 35.7 g/dL [facility] RDW CV 13.8 11.1 - 14.9 % [facility] RDW SD 44.5 35.7 - 48.1 fL [facility] NRBC abs 0.02(H) 0.00 - 0.01 K/cumm [facility] Blood 09/12/2024 6:35 AM INTEGRITY MANAGER 09/12/2024 6:52 AM INTEGRITY MANAGER Anastasia Amaro MD LAB BLOOD ORDERABLES Final Result Performing Organization Address City/[facility] Co de Phone Number [facility] [place] [address] * Type and screen (09/12/2024 6:35 AM INTEGRITY MANAGER) [facility] ABO Rh O Negative Abiodun, indirect Negative [facility] Comment:Patient has previous antibody history Blood 09/12/2024 6:35 AM INTEGRITY MANAGER 09/12/2024 6:48 AM INTEGRITY MANAGER Narrative [facility] - 09/12/2024 7:49 AM INTEGRITY MANAGER Has the patient had Daratumumab or Isatuximab in the past 6 months?->Unknown Anastasia Amaro MD LAB BLOOD BANK TEST ORDERA BLES Final Result Performing Organization Address City/[facility]/ZIP Co de Phone Number [facility] [place] [place] [address] * (ABNORMAL) Comprehensive metabolic panel (09/12/2024 6:35 AM INTEGRITY MANAGER) Sodium 139 135 - 145 mmol/L Potassium, pl 3.8 3.3 - 4.9 mmol/L [facility] Chloride 107 97 - 110 mmol/L [facility] CO2 22 22 - 32 mmol/L [facility] Anion gap 10 2 - 15 mmol/L [facility] BUN 6 6 - 25 mg/dL [facility] Creatinine 0.64 0.60 - 1.10 mg/dL [facility] Glucose 69(L) 70 - 199 mg/dL [facility] Comment: Interpretive Data Fasting glucose >/= [...] Calcium 8.8 8.5 - 10.3 mg/dL [facility] Bilirubin, total <0.2 0.1 - 1.2 mg/dL [facility] Protein, pl 6.4(L) 6.5 - 8.5 g/dL [facility] Albumin 3.1(L) 3.5 - 5.0 g/dL [facility] Alk phos 122 40 - 130 Units/L [facility] ALT 22 7 - 45 Units/L [facility] AST 23 10 - 45 Units/L [facility] Blood 09/12/2024 6:35 AM INTEGRITY MANAGER 09/12/2024 6:51 AM INTEGRITY MANAGER us Anastasia Amaor MD LAB BLOOD ORDERABLES Final Result [facility] Department [place] [address] * eGFR (09/09/2024 6:24 AM INTEGRITY MANAGER) Pathologist [facility] eGFR >90 >=60 mL/min/1. [...] last reviewed 2021. Blood 09/09/2024 6:24 AM INTEGRITY MANAGER 09/09/2024 6:52 AM INTEGRITY MANAGER us Anastasia Amaro MD LAB BLOOD ORDERABLES Final Result [facility] Department [place] [address] * (ABNORMAL) CBC without differential (09/09/2024 6:24 AM INTEGRITY MANAGER) Pathologist [facility] WBC 8.6 3.8 - 9.9 K/cumm Hgb 10.9(L) 11.9 - 15.5 g/dL [facility] Hct 33.1(L) 35.6 - 45.5 % [facility] Plt 239 150 - 400 K/cumm [facility] MPV 11.0 9.1 - 12.3 fL [facility] RBC 3.77(L) 3.90 - 5.20 M/cumm [facility] MCV 87.8 81.3 - 96.4 fL [facility] MCH 28.9 27.1 - 33.3 pg [facility] MCHC 32.9 32.3 - 35.7 g/dL [facility] RDW CV 13.8 11.1 - 14.9 % [facility] RDW SD 43.8 35.7 - 48.1 fL [facility] NRBC abs 0.00 0.00 - 0.01 K/cumm [facility] Blood 09/09/2024 6:24 AM INTEGRITY MANAGER 09/09/2024 6:52 AM INTEGRITY MANAGER us Anastasia Amaro MD LAB BLOOD ORDERABLES Final Result Performing Organization Address City/[facility] Co de Phone Number [facility] Department of [address] [place] [address] * Type and screen (09/09/2024 6:24 AM INTEGRITY MANAGER) Pathologist [facility] ABO Rh O Negative Abiodun, indirect Negative [facility] Comment:Patient has previous antibody history Blood 09/09/2024 6:24 AM INTEGRITY MANAGER 09/09/2024 7:19 AM INTEGRITY MANAGER Narrative [facility] - 09/09/2024 8:51 AM INTEGRITY MANAGER Has the patient had Daratumumab or Isatuximab in the past 6 months?->Unknown us Anastasia Amaro MD LAB BLOOD BANK TEST ORDERA BLES Final Result [facility] [place] [address] * (ABNORMAL) Comprehensive metabolic panel (09/09/2024 6:24 AM INTEGRITY MANAGER) Pathologist [facility] Sodium 141 135 - 145 mmol/L Potassium, pl 3.8 3.3 - 4.9 mmol/L [facility] Chloride 108 97 - 110 mmol/L [facility] CO2 22 22 - 32 mmol/L [facility] Anion gap 11 2 - 15 mmol/L [facility] BUN 8 6 - 25 mg/dL [facility] Creatinine 0.75 0.60 - 1.10 mg/dL [facility] Glucose 70 70 - 199 mg/dL [facility] Comment: Interpretive Data Fasting glucose >/= [...] Calcium 8.9 8.5 - 10.3 mg/dL [facility] Bilirubin, total <0.2 0.1 - 1.2 mg/dL [facility] Protein, pl 6.2(L) 6.5 - 8.5 g/dL [facility] Albumin 3.2(L) 3.5 - 5.0 g/dL [facility] Alk phos 117 40 - 130 Units/L [facility] ALT 22 7 - 45 Units/L [facility] AST 23 10 - 45 Units/L [facility] Blood 09/09/2024 6:24 AM INTEGRITY MANAGER 09/09/2024 6:52 AM INTEGRITY MANAGER us Anastasia Amaro MD LAB BLOOD ORDERABLES Final Result [facility] Department [place] [address] * US Ob Limited (09/08/2024 10:29 AM INTEGRITY MANAGER) Fetus# Fetus1 VIEWPOINT Placenta Details anterior VIEWPOINT Presentation Vertex; Maternal right- low VIEWPOINT Fetus# Fetus2 VIEWPOINT Placenta Details anterior VIEWPOINT Presentation Vertex; Maternal left- high (presenting) VIEWPOINT Anatomical Region Laterality Modality Abdomen N/A Ultrasound 09/08/2024 10:2 9 AM INTEGRITY MANAGER Impressions 09/08/2024 11:25 AM INTEGRITY MANAGER 1. Mo/di twin IUP at 32w 3d. [...] esult * nonstress test (09/06/2024 8:38 PM INTEGRITY MANAGER) Narrative Anastasia Amaro MD - 09/06/2024 8:38 PM INTEGRITY MANAGER Pauline Simms MD ? 09/06/2024 ??8:41 PM Baby A FHR Baseline: 125 Variability: moderate Accelerations: absent Decelerations: absent in last part of tracing, was initially having small variable decels in monitoring Reactive: Yes Baby B FHR Baseline: 130 Variability: moderate Accelerations: present Decelerations: absent Reactive: Yes 29 y.o. at 32w1d a/f preeclampsia with SF On monitor [id number] Contractions: absent I have reviewed NST and instructed RN to take off monitor Pauline Simms MD us Ana M Rogers MD OB GYNE ORDERABLES Fi nal Result * eGFR (09/06/2024 4:31 AM INTEGRITY MANAGER) eGFR >90 >=60 mL/min/1. 73 m2 Comment: [...] last reviewed 2021. Blood 09/06/2024 4:31 AM INTEGRITY MANAGER 09/06/2024 4:53 AM INTEGRITY MANAGER Anastasia Amaro MD LAB BLOOD ORDERABLES Final Result Performing Organization Address [facility] Co de Phone Number [facility] Department [place] [address] * (ABNORMAL) CBC without differential (09/06/2024 4:31 AM INTEGRITY MANAGER) Pathologist [facility] WBC 10.3(H) 3.8 - 9.9 K/cumm Hgb 11.7(L) 11.9 - 15.5 g/dL [facility] Hct 34.5(L) 35.6 - 45.5 % [facility] Plt 249 150 - 400 K/cumm [facility] MPV 11.1 9.1 - 12.3 fL [facility] RBC 3.96 3.90 - 5.20 M/cumm [facility] MCV 87.1 81.3 - 96.4 fL [facility] MCH 29.5 27.1 - 33.3 pg [facility] MCHC 33.9 32.3 - 35.7 g/dL [facility] RDW CV 13.6 11.1 - 14.9 % [facility] RDW SD 42.7 35.7 - 48.1 fL [facility] NRBC abs 0.00 0.00 - 0.01 K/cumm [facility] Blood 09/06/2024 4:31 AM INTEGRITY MANAGER 09/06/2024 4:54 AM INTEGRITY MANAGER Anastasia Amaro MD LAB BLOOD ORDERABLES Final Result Performing Organization Address [facility]/ZIP Co de Phone Number [facility] Department [place] [address] * Type and screen (09/06/2024 4:31 AM INTEGRITY MANAGER) Pathologist [facility] ABO Rh O Negative Abiodun, indirect Negative [facility] Comment:Patient has previous antibody history Blood 09/06/2024 4:31 AM INTEGRITY MANAGER 09/06/2024 6:11 AM INTEGRITY MANAGER Narrative [facility] - 09/06/2024 7:16 AM INTEGRITY MANAGER Has the patient had Daratumumab or Isatuximab in the past 6 months?->Unknown Anastasia Amaro MD LAB BLOOD BANK TEST ORDERA BLES Final Result [facility] Department [place] [address] * (ABNORMAL) Comprehensive metabolic panel (09/06/2024 4:31 AM INTEGRITY MANAGER) Sodium 138 135 - 145 mmol/L Potassium, pl 3.6 3.3 - 4.9 mmol/L [facility] Chloride 105 97 - 110 mmol/L [facility] CO2 24 22 - 32 mmol/L [facility] Anion gap 9 2 - 15 mmol/L [facility] BUN 7 6 - 25 mg/dL [facility] Creatinine 0.63 0.60 - 1.10 mg/dL [facility] Glucose 62(L) 70 - 199 mg/dL [facility] Comment: Interpretive Data Fasting glucose >/= [...] Calcium 9.3 8.5 - 10.3 mg/dL [facility] Bilirubin, total 0.3 0.1 - 1.2 mg/dL [facility] Protein, pl 6.6 6.5 - 8.5 g/dL [facility] Albumin 3.2(L) 3.5 - 5.0 g/dL [facility] Alk phos 118 40 - 130 Units/L [facility] ALT 23 7 - 45 Units/L [facility] AST 22 10 - 45 Units/L [facility] Blood 09/06/2024 4:31 AM INTEGRITY MANAGER 09/06/2024 4:53 AM INTEGRITY MANAGER us Anastasia Amaro MD LAB BLOOD ORDERABLES Final Result Performing Organization Address [facility] Co de Phone Number [facility] Department [place] [address] * Group B streptococcal culture Vaginal/Rectal (09/03/2024 10:29 AM INTEGRITY MANAGER) Report Final Report: Negative Vaginal/Rectal 09/03/2024 10 :29 AM INTEGRITY MANAGER 09/03/2024 10:47 AM INTEGRITY MANAGER [facility] - 09/07/2024 11:05 AM INTEGRITY MANAGER Testing performed by [facility] ([phone]). us Joellen Julio MD LAB MICROBIOLOGY - GENERAL O RDERABLES Final Result Performing Organization Address [facility] Co de Phone Number [facility] Department [place] [address] * eGFR (09/03/2024 5:26 AM INTEGRITY MANAGER) eGFR >90 >=60 mL/min/1. 73 m2 Comment: [...] last reviewed 2021. Blood 09/03/2024 5:26 AM INTEGRITY MANAGER 09/03/2024 5:39 AM INTEGRITY MANAGER us Anastasia Amaro MD LAB BLOOD ORDERABLES Final Result [facility] Department [place] [address] * (ABNORMAL) CBC without differential (09/03/2024 5:26 AM INTEGRITY MANAGER) WBC 12.1(H) 3.8 - 9.9 K/cumm Hgb 11.7(L) 11.9 - 15.5 g/dL [facility] Hct 34.0(L) 35.6 - 45.5 % [facility] Plt 273 150 - 400 K/cumm [facility] MPV 11.0 9.1 - 12.3 fL [facility] RBC 3.97 3.90 - 5.20 M/cumm [facility] MCV 85.6 81.3 - 96.4 fL [facility] MCH 29.5 27.1 - 33.3 pg [facility] MCHC 34.4 32.3 - 35.7 g/dL [facility] RDW CV 13.3 11.1 - 14.9 % [facility] RDW SD 41.7 35.7 - 48.1 fL [facility] NRBC abs 0.00 0.00 - 0.01 K/cumm [facility] Blood 09/03/2024 5:26 AM INTEGRITY MANAGER 09/03/2024 5:39 AM INTEGRITY MANAGER us Anastasia Amaro MD LAB BLOOD ORDERABLES Final Result Performing Organization Address City/[facility] [place] [address] * Type and screen (09/03/2024 5:26 AM INTEGRITY MANAGER) [facility] Abiodun, indirect Negative Comment:Patient has previous antibody history ABO Rh O Negative [facility] Blood 09/03/2024 5:26 AM INTEGRITY MANAGER 09/03/2024 5:32 AM INTEGRITY MANAGER Narrative [facility] - 09/03/2024 6:27 AM INTEGRITY MANAGER Has the patient had Daratumumab or Isatuximab in the past 6 months?->Unknown Anastasia Amaro MD LAB BLOOD BANK TEST ORDERA BLES Final Result Performing Organization Address [facility] de Phone Number [facility] [place] [address] * (ABNORMAL) Comprehensive metabolic panel (09/03/2024 5:26 AM INTEGRITY MANAGER) [facility] Sodium 139 135 - 145 mmol/L Potassium, pl 4.0 3.3 - 4.9 mmol/L [facility] Chloride 105 97 - 110 mmol/L [facility] CO2 20(L) 22 - 32 mmol/L [facility] Anion gap 14 2 - 15 mmol/L [facility] BUN 8 6 - 25 mg/dL [facility] Creatinine 0.55(L) 0.60 - 1.10 mg/dL [facility] Glucose 68(L) 70 - 199 mg/dL [facility] Comment: Interpretive Data Fasting glucose >/= [...] Calcium 9.3 8.5 - 10.3 mg/dL [facility] Bilirubin, total 0.3 0.1 - 1.2 mg/dL [facility] Protein, pl 6.4(L) 6.5 - 8.5 g/dL [facility] Albumin 3.3(L) 3.5 - 5.0 g/dL [facility] Alk phos 111 40 - 130 Units/L [facility] ALT 22 7 - 45 Units/L [facility] AST 24 10 - 45 Units/L [facility] Blood 09/03/2024 5:26 AM INTEGRITY MANAGER 09/03/2024 5:39 AM INTEGRITY MANAGER us Anastasia Amaro MD LAB BLOOD ORDERABLES Final Result [facility] Department [place] [address] * ECG 12 lead (09/02/2024 4:33 PM INTEGRITY MANAGER) Pathologist [facility] Ventricular Rate EKG/Min 110 BPM [facility] Atrial Rate 110 BPM [facility] KS-Interval (MSEC) 130 ms [facility] QRS-Interval (MSEC) 82 ms [facility] QT-Interval (MSEC) 340 ms [facility] QTc 460 ms [facility] P [place] 55 degrees [facility] R [place] 22 degrees [facility] T [place] 30 degrees [facility] Diagnosis Sinus tachycardia Otherwise normal ECG No previous ECGs available Confirmed by SAMANTA KAPLAN M.D ([id number]) on 09/06/2024 2:44:26 PM [facility] 09/02/2024 4:33 PM INTEGRITY MANAGER 09/06/2024 2:44 PM INTEGRITY MANAGER us Joellen Julio MD ECG ORDERABLES Final Result [facility] * eGFR (08/31/2024 6:20 AM INTEGRITY MANAGER) eGFR >90 >=60 mL/min/1. 73 m2 Comment: [...] last reviewed 2021. Blood 08/31/2024 6:20 AM INTEGRITY MANAGER 08/31/2024 7:25 AM INTEGRITY MANAGER Anastasia Amaro MD LAB BLOOD ORDERABLES Final Result [facility] Department [place] [address] * (ABNORMAL) CBC without differential (08/31/2024 6:20 AM INTEGRITY MANAGER) [facility] WBC 10.5(H) 3.8 - 9.9 K/cumm Hgb 11.5(L) 11.9 - 15.5 g/dL [facility] Hct 34.1(L) 35.6 - 45.5 % [facility] Plt 282 150 - 400 K/cumm [facility] MPV 10.9 9.1 - 12.3 fL [facility] RBC 3.93 3.90 - 5.20 M/cumm [facility] MCV 86.8 81.3 - 96.4 fL [facility] MCH 29.3 27.1 - 33.3 pg [facility] MCHC 33.7 32.3 - 35.7 g/dL [facility] RDW CV 13.7 11.1 - 14.9 % [facility] RDW SD 42.6 35.7 - 48.1 fL [facility] NRBC abs 0.00 0.00 - 0.01 K/cumm [facility] Blood 08/31/2024 6:20 AM INTEGRITY MANAGER 08/31/2024 7:25 AM INTEGRITY MANAGER us Anastasia Amaro MD LAB BLOOD ORDERABLES Final Result Performing Organization Address City/[facility]/ZIP Co de Phone Number [facility] [address] [place] [address] * Type and screen (08/31/2024 6:20 AM INTEGRITY MANAGER) ABO Rh O Negative Abiodun, indirect Negative [facility] Comment:Patient has previous antibody history Blood 08/31/2024 6:20 AM INTEGRITY MANAGER 08/31/2024 7:41 AM INTEGRITY MANAGER Narrative [facility] - 08/31/2024 8:26 AM INTEGRITY MANAGER Has the patient had Daratumumab or Isatuximab in the past 6 months?->Unknown us Anastasia Amaro MD LAB BLOOD BANK TEST ORDERA BLES Final Result [facility] [address] [place] [address] * (ABNORMAL) Comprehensive metabolic panel (08/31/2024 6:20 AM INTEGRITY MANAGER) Sodium 137 135 - 145 mmol/L Potassium, pl 3.7 3.3 - 4.9 mmol/L [facility] Chloride 103 97 - 110 mmol/L [facility] CO2 22 22 - 32 mmol/L [facility] Anion gap 12 2 - 15 mmol/L [facility] BUN 6 6 - 25 mg/dL [facility] Creatinine 0.56(L) 0.60 - 1.10 mg/dL [facility] Glucose 70 70 - 199 mg/dL [facility] Comment: Interpretive Data Fasting glucose >/= [...] 2022. Calcium 9.5 8.5 - 10.3 mg/dL [facility] Bilirubin, total 0.2 0.1 - 1.2 mg/dL [facility] Protein, pl 6.4(L) 6.5 - 8.5 g/dL [facility] Albumin 3.2(L) 3.5 - 5.0 g/dL [facility] Alk phos 103 40 - 130 Units/L [facility] ALT 28 7 - 45 Units/L [facility] AST 25 10 - 45 Units/L [facility] Blood 08/31/2024 6:20 AM INTEGRITY MANAGER 08/31/2024 7:25 AM INTEGRITY MANAGER us Anastasia Amaro MD LAB BLOOD ORDERABLES Final Result [facility] Department of Laboratories [place], [place] [id number] * nonstress test (08/29/2024 2:32 PM INTEGRITY MANAGER) Narrative Nini Cortez MD - 08/29/2024 2:32 PM INTEGRITY MANAGER Maureen Calix MD ? 08/29/2024 ??3:38 PM nonstress test Date/Time: 08/29/2024 2:32 PM Performed by: Maureen Calix MD Authorized by: Ana M Rogers MD ?? us Ana M Rogers MD OB GYNE ORDERABLES Fi nal Result * nonstress test (08/28/2024 7:47 PM INTEGRITY MANAGER) Narrative Nini Cortez MD - 08/28/2024 7:47 PM INTEGRITY MANAGER Francisca Yun MD ? 08/28/2024 ??7:48 PM A FHR Baseline: 120 Variability: moderate Reactive: Yes Contractions: absent B FHR Baseline: 130 Variability: moderate Reactive: Yes Contractions: absent Comments: No decels x2 I have reviewed NST and instructed RN to take off monitor Francisca Yun MD us Ana M Rogers MD OB GYNE ORDERABLES Fi nal Result * eGFR (08/28/2024 6:00 AM INTEGRITY MANAGER) eGFR >90 >=60 mL/min/1. 73 m2 Comment: [...] last reviewed 2021. Blood 08/28/2024 6:00 AM INTEGRITY MANAGER 08/28/2024 6:13 AM INTEGRITY MANAGER Anastasia Amaro MD LAB BLOOD ORDERABLES Final Result Performing Organization Address City/[facility]/ZIP Co de Phone Number [facility] Department of [address] [place] [address] * (ABNORMAL) CBC without differential (08/28/2024 6:00 AM INTEGRITY MANAGER) WBC 10.3(H) 3.8 - 9.9 K/cumm Hgb 11.2(L) 11.9 - 15.5 g/dL [facility] Hct 33.0(L) 35.6 - 45.5 % [facility] Plt 289 150 - 400 K/cumm [facility] MPV 10.7 9.1 - 12.3 fL [facility] RBC 3.78(L) 3.90 - 5.20 M/cumm [facility] MCV 87.3 81.3 - 96.4 fL [facility] MCH 29.6 27.1 - 33.3 pg [facility] MCHC 33.9 32.3 - 35.7 g/dL [facility] RDW CV 13.7 11.1 - 14.9 % [facility] RDW SD 43.6 35.7 - 48.1 fL [facility] NRBC abs 0.00 0.00 - 0.01 K/cumm [facility] Blood 08/28/2024 6:00 AM INTEGRITY MANAGER 08/28/2024 6:20 AM INTEGRITY MANAGER Anastasia Amaro MD LAB BLOOD ORDERABLES Final Result Performing Organization Address City/[facility]/ZIP Co de Phone Number [facility] Department [place] [address] * Type and screen (08/28/2024 6:00 AM INTEGRITY MANAGER) ABO Rh O Negative Comment:Patient has previous antibody history Abiodun, indirect Negative [facility] Blood 08/28/2024 6:00 AM INTEGRITY MANAGER 08/28/2024 6:54 AM INTEGRITY MANAGER Narrative [facility] - 08/28/2024 7:53 AM INTEGRITY MANAGER Has the patient had Daratumumab or Isatuximab in the past 6 months?->Unknown us Ansatasia Amaro MD LAB BLOOD BANK TEST ORDERA BLES Final Result [facility] One [facility] Department [place] [address] * (ABNORMAL) Comprehensive metabolic panel (08/28/2024 6:00 AM INTEGRITY MANAGER) Sodium 137 135 - 145 mmol/L Potassium, pl 3.6 3.3 - 4.9 mmol/L [facility] Chloride 105 97 - 110 mmol/L [facility] CO2 21(L) 22 - 32 mmol/L [facility] Anion gap 11 2 - 15 mmol/L [facility] BUN 8 6 - 25 mg/dL [facility] Creatinine 0.52(L) 0.60 - 1.10 mg/dL [facility] Glucose 74 70 - 199 mg/dL [facility] Comment: Interpretive Data Fasting glucose >/= [...] Calcium 9.3 8.5 - 10.3 mg/dL [facility] Bilirubin, total 0.2 0.1 - 1.2 mg/dL [facility] Protein, pl 6.2(L) 6.5 - 8.5 g/dL [facility] Albumin 3.2(L) 3.5 - 5.0 g/dL [facility] Alk phos 96 40 - 130 Units/L [facility] ALT 25 7 - 45 Units/L [facility] AST 22 10 - 45 Units/L [facility] Blood 08/28/2024 6:00 AM INTEGRITY MANAGER 08/28/2024 6:13 AM INTEGRITY MANAGER us Anastasia Amaro MD LAB BLOOD ORDERABLES Final Result [facility] Department [place] [address] * eGFR (08/25/2024 6:19 AM INTEGRITY MANAGER) eGFR >90 >=60 mL/min/1. 73 m2 Comment: [...] last reviewed 2021. Blood 08/25/2024 6:19 AM INTEGRITY MANAGER 08/25/2024 6:33 AM INTEGRITY MANAGER Anastasia Amaro MD LAB BLOOD ORDERABLES Final Result Performing Organization Address [facility] Co de Phone Number [facility] [place] [address] * (ABNORMAL) CBC without differential (08/25/2024 6:19 AM INTEGRITY MANAGER) Pathologist [facility] WBC 10.5(H) 3.8 - 9.9 K/cumm Hgb 11.4(L) 11.9 - 15.5 g/dL [facility] Hct 33.4(L) 35.6 - 45.5 % [facility] Plt 299 150 - 400 K/cumm [facility] MPV 10.6 9.1 - 12.3 fL [facility] RBC 3.90 3.90 - 5.20 M/cumm [facility] MCV 85.6 81.3 - 96.4 fL [facility] MCH 29.2 27.1 - 33.3 pg [facility] MCHC 34.1 32.3 - 35.7 g/dL [facility] RDW CV 13.4 11.1 - 14.9 % [facility] RDW SD 41.7 35.7 - 48.1 fL [facility] NRBC abs 0.00 0.00 - 0.01 K/cumm [facility] Blood 08/25/2024 6:19 AM INTEGRITY MANAGER 08/25/2024 6:32 AM INTEGRITY MANAGER us Anastasia Amaro MD LAB BLOOD ORDERABLES Final Result Performing Organization Address [facility]/[place] [address] * Type and screen (08/25/2024 6:19 AM INTEGRITY MANAGER) Pathologist [facility] Abiodun, indirect Negative Comment:Patient has previous antibody history ABO Rh O Negative [facility] Blood 08/25/2024 6:19 AM INTEGRITY MANAGER 08/25/2024 7:06 AM INTEGRITY MANAGER Narrative [facility] - 08/25/2024 8:01 AM INTEGRITY MANAGER Has the patient had Daratumumab or Isatuximab in the past 6 months?->Unknown Anastasia Amaro MD LAB BLOOD BANK TEST ORDERA BLES Final Result [facility] Department [place] [address] * (ABNORMAL) Comprehensive metabolic panel (08/25/2024 6:19 AM INTEGRITY MANAGER) Pathologist [facility] Sodium 139 135 - 145 mmol/L Potassium, pl 3.5 3.3 - 4.9 mmol/L [facility] Chloride 105 97 - 110 mmol/L [facility] CO2 22 22 - 32 mmol/L [facility] Anion gap 12 2 - 15 mmol/L [facility] BUN 6 6 - 25 mg/dL [facility] Creatinine 0.53(L) 0.60 - 1.10 mg/dL [facility] Glucose 70 70 - 199 mg/dL [facility] Comment: Interpretive Data Fasting glucose >/= [...] Calcium 9.2 8.5 - 10.3 mg/dL [facility] Bilirubin, total 0.2 0.1 - 1.2 mg/dL [facility] Protein, pl 6.4(L) 6.5 - 8.5 g/dL [facility] Albumin 3.2(L) 3.5 - 5.0 g/dL [facility] Alk phos 92 40 - 130 Units/L [facility] ALT 22 7 - 45 Units/L [facility] AST 22 10 - 45 Units/L [facility] Blood 08/25/2024 6:19 AM INTEGRITY MANAGER 08/25/2024 6:33 AM INTEGRITY MANAGER us Anastasia Amaro MD LAB BLOOD ORDERABLES Final Result [facility] Department [place] [address] * US Ob Follow Up (08/24/2024 9:37 AM INTEGRITY MANAGER) Fetus# Fetus1 VIEWPOINT Estimated Weight 1,348 g&grams VIEWPOINT Placenta Details anterior VIEWPOINT Presentation Vertex; Maternal right- low VIEWPOINT Fetus# Fetus2 VIEWPOINT Estimated Weight 1,784 g&grams VIEWPOINT Placenta Details anterior VIEWPOINT Presentation Vertex; Maternal left- high (presenting) VIEWPOINT Anatomical Region Laterality Modality Abdomen N/A Ultrasound 08/24/2024 9:37 AM INTEGRITY MANAGER Impressions 08/24/2024 2:06 PM INTEGRITY MANAGER 1. Presumed Mo/Di twin IUP at 30w [...] Edite d * eGFR (08/22/2024 6:02 AM INTEGRITY MANAGER) eGFR >90 >=60 mL/min/1. 73 m2 Comment: [...] last reviewed 2021. Blood 08/22/2024 6:02 AM INTEGRITY MANAGER 08/22/2024 6:18 AM INTEGRITY MANAGER us Anastasia Amaro MD LAB BLOOD ORDERABLES Final Result [facility] Department [place] [address] * (ABNORMAL) CBC without differential (08/22/2024 6:02 AM INTEGRITY MANAGER) WBC 12.2(H) 3.8 - 9.9 K/cumm Hgb 11.8(L) 11.9 - 15.5 g/dL [facility] Hct 34.4(L) 35.6 - 45.5 % [facility] Plt 277 150 - 400 K/cumm [facility] MPV 10.4 9.1 - 12.3 fL [facility] RBC 4.02 3.90 - 5.20 M/cumm [facility] MCV 85.6 81.3 - 96.4 fL [facility] MCH 29.4 27.1 - 33.3 pg [facility] MCHC 34.3 32.3 - 35.7 g/dL [facility] RDW CV 13.6 11.1 - 14.9 % [facility] RDW SD 42.4 35.7 - 48.1 fL [facility] NRBC abs 0.00 0.00 - 0.01 K/cumm [facility] Blood 08/22/2024 6:02 AM INTEGRITY MANAGER 08/22/2024 6:18 AM INTEGRITY MANAGER us Anastasia Amaro MD LAB BLOOD ORDERABLES Final Result [facility] Department [place] [address] * Type and screen (08/22/2024 6:02 AM INTEGRITY MANAGER) Pathologist [facility] Abiodun, indirect Negative Comment:Patient has previous antibody history ABO Rh O Negative [facility] Blood 08/22/2024 6:02 AM INTEGRITY MANAGER 08/22/2024 6:24 AM INTEGRITY MANAGER Narrative [facility] - 08/22/2024 7:25 AM INTEGRITY MANAGER Has the patient had Daratumumab or Isatuximab in the past 6 months?->Unknown Anastasia Amaro MD LAB BLOOD BANK TEST ORDERA BLES Final Result Performing Organization Address City/State/[facility] Co de Phone Number [facility] [place] [address] * (ABNORMAL) Comprehensive metabolic panel (08/22/2024 6:02 AM INTEGRITY MANAGER) [facility] Sodium 138 135 - 145 mmol/L Potassium, pl 3.7 3.3 - 4.9 mmol/L [facility] Chloride 104 97 - 110 mmol/L [facility] CO2 23 22 - 32 mmol/L [facility] Anion gap 11 2 - 15 mmol/L [facility] BUN 7 6 - 25 mg/dL [facility] Creatinine 0.53(L) 0.60 - 1.10 mg/dL [facility] Glucose 72 70 - 199 mg/dL [facility] Comment: Interpretive Data Fasting glucose >/= [...] Calcium 9.3 8.5 - 10.3 mg/dL [facility] Bilirubin, total 0.2 0.1 - 1.2 mg/dL [facility] Protein, pl 6.6 6.5 - 8.5 g/dL [facility] Albumin 3.2(L) 3.5 - 5.0 g/dL [facility] Alk phos 90 40 - 130 Units/L [facility] ALT 19 7 - 45 Units/L [facility] AST 18 10 - 45 Units/L [facility] Blood 08/22/2024 6:02 AM INTEGRITY MANAGER 08/22/2024 6:18 AM INTEGRITY MANAGER us Anastasia Amaro MD LAB BLOOD ORDERABLES Final Result [facility] Department [place] [address] * eGFR (08/19/2024 6:25 AM INTEGRITY MANAGER) eGFR >90 >=60 mL/min/1. 73 m2 Comment: [...] last reviewed 2021. Blood 08/19/2024 6:25 AM INTEGRITY MANAGER 08/19/2024 7:23 AM INTEGRITY MANAGER Anastasia Amaro MD LAB BLOOD ORDERABLES Final Result Performing Organization Address City/[facility]/ZIP Co de Phone Number [facility] Department of [address] [place] [address] * (ABNORMAL) CBC without differential (08/19/2024 6:25 AM INTEGRITY MANAGER) WBC 11.2(H) 3.8 - 9.9 K/cumm Hgb 11.3(L) 11.9 - 15.5 g/dL [facility] Hct 33.9(L) 35.6 - 45.5 % [facility] Plt 249 150 - 400 K/cumm [facility] MPV 10.6 9.1 - 12.3 fL [facility] RBC 3.89(L) 3.90 - 5.20 M/cumm [facility] MCV 87.1 81.3 - 96.4 fL [facility] MCH 29.0 27.1 - 33.3 pg [facility] MCHC 33.3 32.3 - 35.7 g/dL [facility] RDW CV 13.4 11.1 - 14.9 % [facility] RDW SD 42.5 35.7 - 48.1 fL [facility] NRBC abs 0.00 0.00 - 0.01 K/cumm [facility] Blood 08/19/2024 6:25 AM INTEGRITY MANAGER 08/19/2024 7:23 AM INTEGRITY MANAGER Anastasia Amaro MD LAB BLOOD ORDERABLES Final Result Performing Organization Address City/[facility]/ZIP Co de Phone Number [facility] [place] [address] * Type and screen (08/19/2024 6:25 AM INTEGRITY MANAGER) Abiodun, indirect Negative ABO Rh O Negative [facility] Comment:Patient has previous antibody history Blood 08/19/2024 6:25 AM INTEGRITY MANAGER 08/19/2024 7:31 AM INTEGRITY MANAGER Narrative [facility] - 08/19/2024 8:22 AM INTEGRITY MANAGER Has the patient had Daratumumab or Isatuximab in the past 6 months?->Unknown Anastasia Amaro MD LAB BLOOD BANK TEST ORDERA BLES Final Result [facility] Department [place] [address] * (ABNORMAL) Comprehensive metabolic panel (08/19/2024 6:25 AM INTEGRITY MANAGER) Pathologist [facility] Sodium 138 135 - 145 mmol/L Potassium, pl 3.7 3.3 - 4.9 mmol/L [facility] Chloride 105 97 - 110 mmol/L [facility] CO2 23 22 - 32 mmol/L [facility] Anion gap 10 2 - 15 mmol/L [facility] BUN 7 6 - 25 mg/dL [facility] Creatinine 0.54(L) 0.60 - 1.10 mg/dL [facility] Glucose 68(L) 70 - 199 mg/dL [facility] Comment: Interpretive Data Fasting glucose >/= [...] Calcium 9.3 8.5 - 10.3 mg/dL [facility] Bilirubin, total 0.2 0.1 - 1.2 mg/dL [facility] Protein, pl 6.3(L) 6.5 - 8.5 g/dL [facility] Albumin 3.0(L) 3.5 - 5.0 g/dL [facility] Alk phos 88 40 - 130 Units/L [facility] ALT 13 7 - 45 Units/L [facility] AST 18 10 - 45 Units/L [facility] Blood 08/19/2024 6:25 AM INTEGRITY MANAGER 08/19/2024 7:23 AM INTEGRITY MANAGER us Anastasia Amaro MD LAB BLOOD ORDERABLES Final Result [facility] Department [place] [address] * US Ob Limited (08/16/2024 8:35 AM INTEGRITY MANAGER) Fetus# Fetus1 VIEWPOINT Placenta Details anterior VIEWPOINT Presentation Transverse, maternal right-low VIEWPOINT Fetus# Fetus2 VIEWPOINT Placenta Details anterior VIEWPOINT Presentation Vertex; Maternal left- high VIEWPOINT Anatomical Region Laterality Modality Abdomen N/A Ultrasound 08/16/2024 8:36 AM INTEGRITY MANAGER Impressions 08/16/2024 2:23 PM INTEGRITY MANAGER Diamniotic (presumed MCDA) TIUP at 29w1d who is admitted for preE with severe features who presents for ??TTTS screen.Chorionicity was not fully assessed but was previously determined to be monochorionic by the [facility] MFM practice. Anatomic surveys were also [...] previously determined to be monochorionic by the [facility] MFMpractice. Anatomic surveys were also completed [...] Unilateral mildleft-sided ventriculomegaly is stable in appearance Anastasia Amaro MD IMG OB US PROCEDURES Final Result * Antibody identification (08/16/2024 7:34 AM INTEGRITY MANAGER) Pathologist [facility] Antibody ID 1 Passive Anti-D Blood 08/16/2024 7:34 AM INTEGRITY MANAGER 08/16/2024 7:34 AM INTEGRITY MANAGER us Anastasia Amaro MD LAB BLOOD BANK TEST ORDERA BLES Final Result [facility] Department [place] [address] * eGFR (08/16/2024 6:15 AM INTEGRITY MANAGER) Pathologist [facility] eGFR >90 >=60 mL/min/1. [...] last reviewed 2021. Blood 08/16/2024 6:15 AM INTEGRITY MANAGER 08/16/2024 6:29 AM INTEGRITY MANAGER Anastasia Amaro MD LAB BLOOD ORDERABLES Final Result Performing Organization Address [facility] Co de Phone Number [facility] Department of [address] [place] [address] * Thyroid Function [place] (08/16/2024 6:15 AM INTEGRITY MANAGER) Pathologist [facility] TSH 3.83 0.30 - 4.20 mcIUnit/mL Blood 08/16/2024 6:15 AM INTEGRITY MANAGER 08/16/2024 6:29 AM INTEGRITY MANAGER Anastasia Amaro MD LAB BLOOD ORDERABLES Final Result Performing Organization Address [facility] de Phone Number [facility] of [address] [place] [address] * (ABNORMAL) CBC without differential (08/16/2024 6:15 AM INTEGRITY MANAGER) Pathologist [facility] WBC 10.9(H) 3.8 - 9.9 K/cumm Hgb 11.6(L) 11.9 - 15.5 g/dL [facility] Hct 34.0(L) 35.6 - 45.5 % [facility] Plt 257 150 - 400 K/cumm [facility] MPV 10.4 9.1 - 12.3 fL [facility] RBC 3.95 3.90 - 5.20 M/cumm [facility] MCV 86.1 81.3 - 96.4 fL [facility] MCH 29.4 27.1 - 33.3 pg [facility] MCHC 34.1 32.3 - 35.7 g/dL [facility] RDW CV 13.3 11.1 - 14.9 % [facility] RDW SD 41.5 35.7 - 48.1 fL [facility] NRBC abs 0.00 0.00 - 0.01 K/cumm [facility] Blood 08/16/2024 6:15 AM INTEGRITY MANAGER 08/16/2024 6:30 AM INTEGRITY MANAGER Anastasia Amaro MD LAB BLOOD ORDERABLES Final Result Performing Organization Address [facility] Co de Phone Number [facility] Department of [address] [place] [address] * (ABNORMAL) Type and screen (08/16/2024 6:15 AM INTEGRITY MANAGER) [facility] Abiodun, indirect Positive(A) ABO Rh O Negative [facility] Blood 08/16/2024 6:15 AM INTEGRITY MANAGER 08/16/2024 6:25 AM INTEGRITY MANAGER Narrative [facility] - 08/16/2024 7:34 AM INTEGRITY MANAGER Has the patient had Daratumumab or Isatuximab in the past 6 months?->Unknown Anastasia Amaro MD LAB BLOOD BANK TEST ORDERA BLES Final Result Performing Organization Address City/[facility]/ZIP Co de Phone Number [facility] of [address] [place] [address] * (ABNORMAL) Comprehensive metabolic panel (08/16/2024 6:15 AM INTEGRITY MANAGER) Pathologist [facility] Sodium 139 135 - 145 mmol/L Potassium, pl 3.4 3.3 - 4.9 mmol/L [facility] Chloride 105 97 - 110 mmol/L [facility] CO2 23 22 - 32 mmol/L [facility] Anion gap 11 2 - 15 mmol/L [facility] BUN 8 6 - 25 mg/dL [facility] Creatinine 0.51(L) 0.60 - 1.10 mg/dL [facility] Glucose 72 70 - 199 mg/dL [facility] Comment: Interpretive Data Fasting glucose >/= [...] Calcium 9.2 8.5 - 10.3 mg/dL [facility] Bilirubin, total 0.2 0.1 - 1.2 mg/dL [facility] Protein, pl 6.4(L) 6.5 - 8.5 g/dL [facility] Albumin 3.2(L) 3.5 - 5.0 g/dL [facility] Alk phos 86 40 - 130 Units/L [facility] ALT 16 7 - 45 Units/L [facility] AST 16 10 - 45 Units/L [facility] Blood 08/16/2024 6:15 AM INTEGRITY MANAGER 08/16/2024 6:29 AM INTEGRITY MANAGER us Anastasia Amaro MD LAB BLOOD ORDERABLES Final Result [facility] [place] [address] * POCT glucose (08/14/2024 3:06 PM INTEGRITY MANAGER) [facility] Glucose, POC 103 70 - 199 mg/dL Comment:Post Meal Glucose comment 1 Post Meal [facility] Blood 08/14/2024 3:06 PM INTEGRITY MANAGER 08/14/2024 3:06 PM INTEGRITY MANAGER us Anastasia Amaro MD LAB POCT ORDERABLES - JELENA CE Final Result Performing Organization Address City/[facility]/ZIP Co de Phone Number [facility] Department [place] [address] * ECG 12 lead (08/13/2024 9:02 AM INTEGRITY MANAGER) [facility] Ventricular Rate EKG/Min 122 BPM [facility] Atrial Rate 122 BPM [facility] KS-Interval (MSEC) 132 ms [facility] QRS-Interval (MSEC) 80 ms [facility] QT-Interval (MSEC) 324 ms [facility] QTc 461 ms [facility] P [place] 49 degrees [facility] R [place] 18 degrees [facility] T [place] 29 degrees [facility] Diagnosis Sinus tachycardia Otherwise normal ECG When compared with ECG of 04-AUG-2024 17:45, No significant change was found Confirmed by SAMANTA KAPLAN M.D ([id number]) on 08/15/2024 12:21:02 PM [facility] 08/13/2024 9:02 AM INTEGRITY MANAGER 08/15/2024 12:21 PM INTEGRITY MANAGER us Anastasia Amaro MD ECG ORDERABLES Final Resu lt Performing Organization Address [facility] Co de Phone Number [facility] * Antibody identification (08/13/2024 7:42 AM INTEGRITY MANAGER) [facility] Antibody ID 1 Passive Anti-D Blood 08/13/2024 7:42 AM INTEGRITY MANAGER 08/13/2024 7:42 AM INTEGRITY MANAGER us Anastasia Amaro MD LAB BLOOD BANK TEST ORDERA BLES Final Result Performing Organization Address City/[facility]/ZIP Co de Phone Number [facility] Department [place] [address] * eGFR (08/13/2024 5:44 AM INTEGRITY MANAGER) eGFR >90 >=60 mL/min/1. 73 m2 Comment: [...] last reviewed 2021. Blood 08/13/2024 5:44 AM INTEGRITY MANAGER 08/13/2024 6:05 AM INTEGRITY MANAGER us Anastasia Amaro MD LAB BLOOD ORDERABLES Final Result [facility] Department [place] [address] * HIV 1/2 Antibody plus p24 Antigen Blood (08/13/2024 5:44 AM INTEGRITY MANAGER) Pathologist [facility] HIV 1/2 ab + p24 ag Nonreactive Nonreactive Comment:Nonreactive for HIV- 1 antigen and HIV-1/HIV-2 antibodies. No laboratory evidence of HIV infection. If acute HIV infection is suspected, consider testing for HIV-1 RNA. Current interpretive data was last revised on 22. Blood 08/13/2024 5:44 AM INTEGRITY MANAGER 08/13/2024 6:05 AM INTEGRITY MANAGER Anastasia Amaro MD LAB MICROBIOLOGY - GENERAL ORDERABLES Final Result Performing Organization Address City/[facility] Co de Phone Number [facility] [place] [address] * RPR Blood (08/13/2024 5:44 AM INTEGRITY MANAGER) Pathologist [facility] RPR Nonreactive Nonreactive Blood 08/13/2024 5:44 AM INTEGRITY MANAGER 08/13/2024 6:05 AM INTEGRITY MANAGER Anastasia Amaro MD LAB MICROBIOLOGY - GENERAL ORDERABLES Final Result Performing Organization Address [facility] de Phone Number [facility] [place] [address] * (ABNORMAL) CBC without differential (08/13/2024 5:44 AM INTEGRITY MANAGER) [facility] WBC 12.4(H) 3.8 - 9.9 K/cumm Hgb 11.8(L) 11.9 - 15.5 g/dL [facility] Hct 34.4(L) 35.6 - 45.5 % [facility] Plt 295 150 - 400 K/cumm [facility] MPV 10.3 9.1 - 12.3 fL [facility] RBC 3.93 3.90 - 5.20 M/cumm [facility] MCV 87.5 81.3 - 96.4 fL [facility] MCH 30.0 27.1 - 33.3 pg [facility] MCHC 34.3 32.3 - 35.7 g/dL [facility] RDW CV 13.6 11.1 - 14.9 % [facility] RDW SD 43.5 35.7 - 48.1 fL [facility] NRBC abs 0.00 0.00 - 0.01 K/cumm [facility] Blood 08/13/2024 5:44 AM INTEGRITY MANAGER 08/13/2024 6:05 AM INTEGRITY MANAGER Anastasia Amaro MD LAB BLOOD ORDERABLES Final Result Performing Organization Address [facility] Co de Phone Number [facility] [place] [address] * (ABNORMAL) Type and screen (08/13/2024 5:44 AM INTEGRITY MANAGER) Pathologist [facility] ABO Rh O Negative Abiodun, indirect Positive(A) [facility] Blood 08/13/2024 5:44 AM INTEGRITY MANAGER 08/13/2024 6:19 AM INTEGRITY MANAGER Narrative [facility] - 08/13/2024 7:42 AM INTEGRITY MANAGER Has the patient had Daratumumab or Isatuximab in the past 6 months?->Unknown Anastasia Amaro MD LAB BLOOD BANK TEST ORDERA BLES Final Result Performing Organization Address [facility] de Phone Number [facility] [place] [address] * (ABNORMAL) Comprehensive metabolic panel (08/13/2024 5:44 AM INTEGRITY MANAGER) [facility] Sodium 137 135 - 145 mmol/L Potassium, pl 3.7 3.3 - 4.9 mmol/L [facility] Chloride 104 97 - 110 mmol/L [facility] CO2 22 22 - 32 mmol/L [facility] Anion gap 11 2 - 15 mmol/L [facility] BUN 8 6 - 25 mg/dL [facility] Creatinine 0.49(L) 0.60 - 1.10 mg/dL [facility] Glucose 74 70 - 199 mg/dL [facility] Comment: Interpretive Data Fasting glucose >/= [...] 2022. Calcium 9.4 8.5 - 10.3 mg/dL [facility] Bilirubin, total 0.3 0.1 - 1.2 mg/dL [facility] Protein, pl 6.5 6.5 - 8.5 g/dL [facility] Albumin 3.3(L) 3.5 - 5.0 g/dL [facility] Alk phos 85 40 - 130 Units/L [facility] ALT 21 7 - 45 Units/L [facility] AST 19 10 - 45 Units/L [facility] Blood 08/13/2024 5:44 AM INTEGRITY MANAGER 08/13/2024 6:05 AM INTEGRITY MANAGER Anastasia Amaro MD LAB BLOOD ORDERABLES Final Result [facility] Department [place] [address] * GTT 50gm 1hr gestational screen (08/12/2024 11:29 AM INTEGRITY MANAGER) GTT 50g gest screen 106 <=140 mg/dL [...] on 2020. Blood 08/12/2024 11:2 9 AM INTEGRITY MANAGER 08/12/2024 11:41 AM INTEGRITY MANAGER Anastasia Amaro MD LAB BLOOD ORDERABLES Final Result BIA TODD [facility] [address] [place] [address] * Antibody identification (08/10/2024 7:02 AM INTEGRITY MANAGER) [facility] Antibody ID 1 Passive Anti-D Blood 08/10/2024 7:02 AM INTEGRITY MANAGER 08/10/2024 7:02 AM INTEGRITY MANAGER Anastasia Amaro MD LAB BLOOD BANK TEST ORDERA BLES Final Result Performing Organization Address [facility] de Phone Number BIA TODD Simon [facility] of [address] [place] [address] * eGFR (08/10/2024 4:49 AM INTEGRITY MANAGER) [facility] eGFR >90 >=60 mL/min/1. 73 m2 Comment: [...] last reviewed 2021. Blood 08/10/2024 4:49 AM INTEGRITY MANAGER 08/10/2024 5:31 AM INTEGRITY MANAGER Anastasia Amaro MD LAB BLOOD ORDERABLES Final Result Performing Organization Address [facility] Co de Phone Number [facility] [place] [address] * (ABNORMAL) CBC without differential (08/10/2024 4:49 AM INTEGRITY MANAGER) Pathologist [facility] WBC 11.7(H) 3.8 - 9.9 K/cumm Hgb 11.7(L) 11.9 - 15.5 g/dL [facility] Hct 35.0(L) 35.6 - 45.5 % [facility] Plt 293 150 - 400 K/cumm [facility] MPV 10.5 9.1 - 12.3 fL [facility] RBC 4.00 3.90 - 5.20 M/cumm [facility] MCV 87.5 81.3 - 96.4 fL [facility] MCH 29.3 27.1 - 33.3 pg [facility] MCHC 33.4 32.3 - 35.7 g/dL [facility] RDW CV 13.7 11.1 - 14.9 % [facility] RDW SD 43.8 35.7 - 48.1 fL [facility] NRBC abs 0.00 0.00 - 0.01 K/cumm [facility] Blood 08/10/2024 4:49 AM INTEGRITY MANAGER 08/10/2024 5:42 AM INTEGRITY MANAGER Anastasia Amaro MD LAB BLOOD ORDERABLES Final Result Performing Organization Address [facility]/ZIP Co de Phone Number [facility] [address] [place] [address] * (ABNORMAL) Type and screen (08/10/2024 4:49 AM INTEGRITY MANAGER) Pathologist [facility] Abiodun, indirect Positive(A) ABO Rh O Negative [facility] Blood 08/10/2024 4:49 AM INTEGRITY MANAGER 08/10/2024 6:04 AM INTEGRITY MANAGER Narrative [facility] - 08/10/2024 7:02 AM INTEGRITY MANAGER Has the patient had Daratumumab or Isatuximab in the past 6 months?->Unknown Anastasia Amaro MD LAB BLOOD BANK TEST ORDERA BLES Final Result [facility] Department [place] [address] * (ABNORMAL) Comprehensive metabolic panel (08/10/2024 4:49 AM INTEGRITY MANAGER) Pathologist [facility] Sodium 135 135 - 145 mmol/L Potassium, pl 3.5 3.3 - 4.9 mmol/L [facility] Chloride 102 97 - 110 mmol/L [facility] CO2 22 22 - 32 mmol/L [facility] Anion gap 11 2 - 15 mmol/L [facility] BUN 9 6 - 25 mg/dL [facility] Creatinine 0.51(L) 0.60 - 1.10 mg/dL [facility] Glucose 79 70 - 199 mg/dL [facility] Comment: Interpretive Data Fasting glucose >/= [...] Calcium 9.2 8.5 - 10.3 mg/dL [facility] Bilirubin, total 0.2 0.1 - 1.2 mg/dL [facility] Protein, pl 6.6 6.5 - 8.5 g/dL [facility] Albumin 3.2(L) 3.5 - 5.0 g/dL [facility] Alk phos 85 40 - 130 Units/L [facility] ALT 22 7 - 45 Units/L [facility] AST 19 10 - 45 Units/L [facility] Blood 08/10/2024 4:49 AM INTEGRITY MANAGER 08/10/2024 5:31 AM INTEGRITY MANAGER us Anastasia Amaro MD LAB BLOOD ORDERABLES Final Result [facility] Department [place] [address] * US Ob 14 Weeks Or Over (08/09/2024 9:47 AM INTEGRITY MANAGER) Fetus# Fetus1 VIEWPOINT Placenta Details anterior VIEWPOINT Presentation Vertex; Maternal right- low VIEWPOINT Fetus# Fetus2 VIEWPOINT Placenta Details anterior VIEWPOINT Presentation Vertex; Maternal left- high VIEWPOINT Anatomical Region Laterality Modality Abdomen N/A Ultrasound 08/09/2024 9:50 AM INTEGRITY MANAGER Impressions 08/09/2024 11:52 AM INTEGRITY MANAGER 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 Chorionicity was not fully assessed but was previously determined to be monochorionic by the [facility] MFM practice. Anatomic surveys were also [...] waspreviously determined to be monochorionic by the [facility] MFM practice.Anatomic surveys were also completed [...] Result * Antibody identification (08/07/2024 6:51 AM INTEGRITY MANAGER) Antibody ID 1 Passive Anti-D Blood 08/07/2024 6:51 AM INTEGRITY MANAGER 08/07/2024 6:51 AM INTEGRITY MANAGER Anastasia Amaro MD LAB BLOOD BANK TEST ORDERA BLES Final Result [facility] Department [place] [address] * eGFR (08/07/2024 5:00 AM INTEGRITY MANAGER) eGFR >90 >=60 mL/min/1. 73 m2 Comment: [...] last reviewed 2021. Blood 08/07/2024 5:00 AM INTEGRITY MANAGER 08/07/2024 4:56 AM INTEGRITY MANAGER us Anastasia Amaro MD LAB BLOOD ORDERABLES Final Result [facility] Department [place] [address] * (ABNORMAL) CBC without differential (08/07/2024 5:00 AM INTEGRITY MANAGER) WBC 10.2(H) 3.8 - 9.9 K/cumm Hgb 12.0 11.9 - 15.5 g/dL [facility] Hct 35.0(L) 35.6 - 45.5 % [facility] Plt 261 150 - 400 K/cumm [facility] MPV 10.2 9.1 - 12.3 fL [facility] RBC 4.02 3.90 - 5.20 M/cumm [facility] MCV 87.1 81.3 - 96.4 fL [facility] MCH 29.9 27.1 - 33.3 pg [facility] MCHC 34.3 32.3 - 35.7 g/dL [facility] RDW CV 13.8 11.1 - 14.9 % [facility] RDW SD 44.4 35.7 - 48.1 fL [facility] NRBC abs 0.00 0.00 - 0.01 K/cumm [facility] Blood 08/07/2024 5:00 AM INTEGRITY MANAGER 08/07/2024 4:56 AM INTEGRITY MANAGER Anastasia Amaro MD LAB BLOOD ORDERABLES Final Result [facility] Department [place] [address] * (ABNORMAL) Comprehensive metabolic panel (08/07/2024 5:00 AM INTEGRITY MANAGER) Sodium 138 135 - 145 mmol/L Potassium, pl 3.6 3.3 - 4.9 mmol/L [facility] Chloride 105 97 - 110 mmol/L [facility] CO2 22 22 - 32 mmol/L [facility] Anion gap 11 2 - 15 mmol/L [facility] BUN 7 6 - 25 mg/dL [facility] Creatinine 0.47(L) 0.60 - 1.10 mg/dL [facility] Glucose 84 70 - 199 mg/dL [facility] Comment: Interpretive Data Fasting glucose >/= [...] Calcium 9.3 8.5 - 10.3 mg/dL [facility] Bilirubin, total 0.2 0.1 - 1.2 mg/dL [facility] Protein, pl 6.3(L) 6.5 - 8.5 g/dL [facility] Albumin 3.1(L) 3.5 - 5.0 g/dL [facility] Alk phos 80 40 - 130 Units/L [facility] ALT 26 7 - 45 Units/L [facility] AST 16 10 - 45 Units/L [facility] Blood 08/07/2024 5:00 AM INTEGRITY MANAGER 08/07/2024 4:56 AM INTEGRITY MANAGER Anastasia Amaro MD LAB BLOOD ORDERABLES Final Result Performing Organization Address [facility] Co de Phone Number [facility] [place] [address] * (ABNORMAL) Type and screen (08/07/2024 4:45 AM INTEGRITY MANAGER) Abiodun, indirect Positive(A) ABO Rh O Negative [facility] Blood 08/07/2024 4:45 AM INTEGRITY MANAGER 08/07/2024 5:12 AM INTEGRITY MANAGER Narrative [facility] - 08/07/2024 6:51 AM INTEGRITY MANAGER Has the patient had Daratumumab or Isatuximab in the past 6 months?->Unknown us Anastasia Amaro MD LAB BLOOD BANK TEST ORDERA BLES Final Result Performing Organization Address [facility] de Phone Number [facility] Department [place] [address] * CT Chest PE (CTA) W Contrast [...] B RNA Not Detected Not Detected [facility] RSV RNA Not Detected Not Detected [facility] COVID-19 RNA Not Detected Not Detected [facility] Coronavirus 229E RNA Not Detected Not Detected [facility] Coronavirus HKU1 RNA Not Detected Not Detected [facility] Coronavirus NL63 RNA Not Detected Not Detected [facility] Coronavirus OC43 RNA Not Detected Not Detected [facility] Adenovirus DNA Not Detected Not Detected [facility] Metapneumovirus RNA Not Detected Not Detected [facility] Rhinovirus/Enterov irus RNA Not Detected Not Detected [facility] Parainfluenza 1 RNA Not Detected Not Detected [facility] Parainfluenza 2 RNA Not Detected Not Detected [facility] Parainfluenza 3 RNA Not Detected Not Detected [facility] Parainfluenza 4 RNA Not Detected Not Detected [facility] B. pertussis DNA Not Detected Not Detected [facility] B. parapertussis DNA Not Detected Not Detected [facility] C. pneumoniae DNA Not Detected Not Detected [facility] M. pneumoniae DNA Not Detected Not Detected [facility] Nasopharyngeal 08/04/2024 6: 28 PM CDT 08/04/2024 6:48 PM CDT [facility] - 08/04/2024 8:16 PM CDT Is the Patient experiencing symptoms consistent with COVID?->No Surveillance testing for transplant patient?->No ??Interpretive Data [employer] Film[employer] Respiratory Panel (RP2.1) assay is a [...] assay has FDA clearance for testing of KELP GATHERER swabs. ??The performance of additional specimen types has been assessed by the performing laboratory. ??The performance characteristics of this assay have been determined by [facility]. Current interpretive data was last revised on 22. Anastasia Amaro MD LAB MICROBIOLOGY - GENERAL ORDERABLES Final Result Performing Organization Address [facility] Co de Phone Number [facility] Department [place] [address] * (ABNORMAL) D-dimer, quantitative (08/04/2024 6:28 PM [...] BLOOD ORDERABLES Final Result Performing Organization Address [facility] Co de Phone Number [facility] Department [place] [address] * ECG 12 lead (08/04/2024 5:45 PM CDT) Ventricular Rate EKG/Min 131 BPM [facility] Atrial Rate 131 BPM [facility] KS-Interval (MSEC) 126 ms [facility] QRS-Interval (MSEC) 74 ms [facility] QT-Interval (MSEC) 300 ms [facility] QTc 443 ms [facility] P [place] 53 degrees [facility] R [place] 8 degrees [facility] T [place] 33 degrees [facility] Diagnosis Sinus tachycardia Otherwise normal ECG Confirmed by Kaci Estrella MD ([id number]) on 08/08/2024 3:27:38 AM [facility] 08/04/2024 5:45 PM CDT 08/08/2024 3:27 AM INTEGRITY MANAGER us Anastasia Amaro MD ECG ORDERABLES Final Resu lt Performing Organization Address [facility] de Phone Number [facility] * ECG 12 lead (08/04/2024 11:54 AM CDT) Ventricular Rate EKG/Min 110 BPM [facility] Atrial Rate 110 BPM [facility] [place]-Interval (MSEC) 122 ms [facility] QRS-Interval (MSEC) 78 ms [facility] QT-Interval (MSEC) 334 ms [facility] QTc 452 ms [facility] P [place] 52 degrees [facility] R [place] 5 degrees [facility] T [place] 25 degrees [facility] Diagnosis Sinus tachycardia Otherwise normal ECG No previous ECGs available Confirmed by SAMANTA KAPLAN M.D ([id number]) on 08/04/2024 1:23:30 PM [facility] 08/04/2024 11:5 4 AM CDT 08/04/2024 1:23 PM CDT Anastasia Amaro MD ECG ORDERABLES Final Resu lt Performing Organization Address [facility] de Phone Number [facility] * Antibody identification (08/04/2024 6:12 AM CDT) Antibody ID 1 Passive Anti-D Blood 08/04/2024 6:12 AM CDT 08/04/2024 6:12 AM CDT Anastasia Amaro MD LAB BLOOD BANK TEST ORDERA BLES Final Result Performing Organization Address City/[facility]/ZIP Co de Phone Number BIA TODD [facility] Department [place] [address] * Lupus Anticoagulant Panel plus Reflexes (08/04/2024 4:48 AM CDT) PT 11.6 9.7 - 13.0 sec INR 1.07 0.90 - 1.20 [facility] Comment: Interpretive data Oral anticoagulant therapeutic ranges: Venous thromboembolism prophylaxis or treatment: 2.0-3.0 CARDIOLOGY Standard range: 2.0-3.0 High-intensity range: 2.5-3.5 Refer to indication-specific guidelines for appropriate target ranges for prosthetic heart valve replacement. Current interpretive data was last revised on 2019. aPTT 29 28 - [address] [facility] Comment: Interpretive Data Heparin therapeutic range: 66.0 - 100.0 seconds. Range based on correlation with therapeutic heparin activity range of 0.3 - 0.7 Units/mL. Current interpretive data was last revised on 2023. DRVVT screen ratio 1.13 0.00 - 1.20 Ratio [facility] SCT Screen Ratio 1.01 0.00 - 1.16 Ratio [facility] Lupus anticoagulant, interp Negative [facility] Comment: Interpretive data ?? Lupus anticoagulants [...] lupus anticoagulant detection. J Thromb Haemost. 2009; 7:8219-1482. 2. Andrew Willson et al. International consensus statement on an update of the classification criteria for definite antiphospholipid syndrome (APS). J Thromb Haemost. 2006; 4:295-306. Current interpretive data was last revised on 2018 Blood 08/04/2024 4:48 AM CDT 08/04/2024 5:21 AM CDT us Anastasia Amaro MD LAB BLOOD ORDERABLES Final Result [facility] Department [place] [address] * eGFR (08/04/2024 4:48 AM CDT) eGFR [...] Final Result Performing Organization Address City/State/ZIP Co ri Phone Number [facility] Department [place] [address] * Beta 2 glycoprotein IgM Ab (08/04/2024 4:48 AM CDT) [facility] Beta-2 glycoprotein I, IgM 0.6 <=19.9 units/mL [...] factor. ??These results were obtained with the [employer] 2200 System. Beta-2 GP1 IgM values obtained with different manufacturers' assay methods may not be used interchangeably. Current interpretive data was last revised on 2017. Blood 08/04/2024 4:48 AM CDT 08/04/2024 5:02 AM CDT Anastasia Amaro MD LAB BLOOD ORDERABLES Final Result Performing Organization Address [facility] Co de Phone Number BIA [facility] of [address] [place] [address] * Beta 2 glycoprotein IgG Ab (08/04/2024 4:48 AM CDT) Beta-2 glycoprotein I, IgG <1.4 <=19.9 units/mL Comment: Interpretive Data Negative: <20 U/mL Positive: > or = 20 U/mL ? Beta-2 glycoprotein 1 (Beta-2 GP1) antibodies are a more specific marker of thrombotic risk. It is expected that some samples will be ACL positive and Beta- 2 [id number]. In order to improve specificity, the International Congress on Antiphospholipid Antibodies recommends Beta-2 GP1 antibodies of IgG or IgM isotype ??(> the 99th percentile), obtained twice, at least 12 weeks apart, to support a diagnosis of antiphospholipid syndrome. The cutoff for this assay was developed from data based on the 99th percentile. These results were obtained with the [employer] 2200 System. Beta 2GP1 IgG values obtained with different manufacturers' assay methods may not be used interchangeably. Current interpretive data was last revised on 2017. Blood 08/04/2024 4:48 AM CDT 08/04/2024 5:02 AM CDT Anastasia Amaro MD LAB BLOOD ORDERABLES Final Result Performing Organization Address [facility] Co de Phone Number [facility] of [address] [place] [address] * Cardiolipin antibody, IgG and IgM (08/04/2024 [...] [place]. These results were obtained with the [employer] 2200 System. Cardiolipin IgG values obtained with different manufacturers' assay methods may not be used interchangeably. Current interpretive data was last revised on 2017. Cardiolipin, IgM 0.7 <=19.9 MPL U/mL [facility] Comment: Interpretive Data Negative: <20 MPL U/mL [...] antibodies. ??These results were obtained with the [employer] 2200 System. Cardiolipin IgM values obtained with different manufacturers' assay methods may not be used interchangeably. Current interpretive data was last revised on 2017. Blood 08/04/2024 4:48 AM CDT 08/04/2024 5:02 AM CDT Anastasia Amaro MD LAB BLOOD ORDERABLES Final Result Performing Organization Address City/[facility]/ZIP Co de Phone Number [facility] Department of [address] [place] [address] * (ABNORMAL) CBC without differential (08/04/2024 4:48 AM CDT) Pathologist [facility] WBC 12.6(H) 3.8 - 9.9 K/cumm Hgb 12.4 11.9 - 15.5 g/dL [facility] Hct 36.5 35.6 - 45.5 % [facility] Plt 278 150 - 400 K/cumm [facility] MPV 10.2 9.1 - 12.3 fL [facility] RBC 4.17 3.90 - 5.20 M/cumm [facility] MCV 87.5 81.3 - 96.4 fL [facility] MCH 29.7 27.1 - 33.3 pg [facility] MCHC 34.0 32.3 - 35.7 g/dL [facility] RDW CV 14.1 11.1 - 14.9 % [facility] RDW SD 45.0 35.7 - 48.1 fL [facility] NRBC abs 0.00 0.00 - 0.01 K/cumm [facility] Blood 08/04/2024 4:48 AM CDT 08/04/2024 5:02 AM CDT Anastasia Amaro MD LAB BLOOD ORDERABLES Final Result [facility] [place] [address] * (ABNORMAL) Type and screen (08/04/2024 4:48 AM CDT) [facility] ABO Rh O Negative Abiodun, indirect Positive(A) [facility] Blood 08/04/2024 4:48 AM CDT 08/04/2024 4:59 AM CDT Narrative [facility] - 08/04/2024 6:12 AM CDT Has the patient had Daratumumab or Isatuximab in the past 6 months?->Unknown Anastasia Amaro MD LAB BLOOD BANK TEST ORDERA BLES Final Result [facility] Department [place] [address] * (ABNORMAL) Comprehensive metabolic panel (08/04/2024 4:48 AM CDT) Pathologist [facility] Sodium 137 135 - 145 mmol/L Potassium, pl 3.8 3.3 - 4.9 mmol/L [facility] Chloride 104 97 - 110 mmol/L [facility] CO2 22 22 - 32 mmol/L [facility] Anion gap 11 2 - 15 mmol/L [facility] BUN 8 6 - 25 mg/dL [facility] Creatinine 0.44(L) 0.60 - 1.10 mg/dL [facility] Glucose 77 70 - 199 mg/dL [facility] Comment: Interpretive Data Fasting glucose >/= [...] Calcium 9.2 8.5 - 10.3 mg/dL [facility] Bilirubin, total 0.3 0.1 - 1.2 mg/dL [facility] Protein, pl 6.6 6.5 - 8.5 g/dL [facility] Albumin 3.3(L) 3.5 - 5.0 g/dL [facility] Alk phos 82 40 - 130 Units/L [facility] ALT 23 7 - 45 Units/L [facility] AST 25 10 - 45 Units/L [facility] Blood 08/04/2024 4:48 AM CDT 08/04/2024 5:02 AM CDT us Anastasia Amaro MD LAB BLOOD ORDERABLES Final Result [facility] Department [place] [address] * Echocardiogram (08/03/2024 4:07 PM CDT) Anatomical Region Laterality Modality Ultrasound 08/03/2024 1:22 PM CDT Narrative 08/03/2024 5:10 PM CDT ?[facility] ? Echo Report ?[facility] [facility] [address], [place] ??[address] ?[phone] ? Patient Name: SUKI LEON ? Study Type: Echo ? Patient : 1995 ? Exam Date: ??08/03/2024 ? Age: ?29Y ? Exam Time: ??1:22:00 PM ? Referring MD: SIM HUSAIN ? Height: ? 65in ? Weight: ? 284lb ? BSA: ?2.3 m2 ? Sex: FEMALE ? BP: ? 139/83 ? Digital Program Manager: May Quick ? Pat. Stat.: Inpatient ?Room: 6800 ? Account:[id number] ? Indications for Study:MONO-DI TWINS Procedures: COLORFLOW, [...] Normal. Septum: PFO. Defect sz. Moderate ??Shunt: Cjlzm-on-Bubw ?? Annular Dimensions: ??Ao Valve: 0.52 cm [...] ??bpm FINDINGS: Signed 08/03/2024 05:10 PM Macie iVckers MD Procedure Note Macie Vickers MD - 08/03/2024 [facility] Echo Report [address] [address] Patient Name: SUKI LEON Study Type: Echo Patient : 1995 Exam Date: 08/03/2024 Age: 29Y Exam Time: 1:22:00 PM Referring MD: SIM HUSAIN Height: 65in Weight: 284lb BSA: 2.3 m2 Sex: FEMALE BP: 139/83 Digital Program Manager: May Webebr Stat.: Inpatient Room: [facility] Account:[id number] Indications for Study:MONO-DI TWINS Procedures: COLORFLOW, DOPPLER [...] Normal. Septum: PFO. Defect sz. Moderate Shunt: Vpemd-wj-Puzq Annular Dimensions: Ao Valve: 0.52 cm (+0.79) [...] AM CDT Narrative 08/03/2024 4:30 PM CDT ?[facility] ? Echo Report ?[facility] [address], [place], [place] ??[address] ?[phone] ? Patient Name: SUKI LEON ? Study Type: Echo ? Patient : 1995 ? Exam Date: ??08/03/2024 ? Age: ?29Y ? Exam Time: ??11:38:00 AM ? Referring MD: SIM HUSAIN ? Height: ? 65in ? Weight: ? 284lb ? BSA: ?2.3 m2 ? Sex: FEMALE ? BP: ? 139/83 ? Digital Program Manager: May Quick ? Pat. Stat.: Inpatient ?Room: 6800 ? Account:[id number] ? Indications for Study:AORTIC ECTASIA. 747.29, MONO-DI [...] Normal. Septum: PFO. Defect sz. Moderate ??Shunt: Lruac-zb-Rgfi ?? Ventricles: D-looped ??LV size: Normal. LV [...] Procedure Note Macie Vickers MD - 08/03/2024 [facility] Echo Report [address] [address] Patient Name: SUKI LEON Study Type: Echo Patient : 1995 Exam Date: 08/03/2024 Age: 29Y Exam Time: 11:38:00 AM Referring MD: SIM HUSAIN Height: 65in Weight: 284lb BSA: 2.3 m2 Sex: FEMALE BP: 139/83 Digital Program Manager: May Hoskins. Stat.: Inpatient Room: [facility] Account:[id number] Indications for Study:AORTIC ECTASIA. 747.29, MONO-DI TWINS [...] Normal. Septum: PFO. Defect sz. Moderate Shunt: [id number] Ventricles: D-looped LV size: Normal. LV function:Normal. [...] previously determined to be monochorionic by the [facility] practice. Anatomic surveys were also [...] was previously determined to bemonochorionic by the [facility] practice. Anatomic surveys were alsocompleted there. A [...] PM CDT 08/01/2024 4:[address] [facility] - 08/04/2024 11:19 AM CDT Testing performed by [facility] ([phone]). us Millicent Duran NP LAB MICROBIOLOGY - GENERAL ORDERABLES Final Result [facility] Department [place] [address] * eGFR (08/01/2024 4:33 AM CDT) eGFR [...] MD LAB BLOOD ORDERABLES Final Result [facility] Department [place] [address] * (ABNORMAL) CBC without differential (08/01/2024 4:33 AM CDT) WBC 10.6(H) 3.8 - 9.9 K/cumm Hgb 11.7(L) 11.9 - 15.5 g/dL [facility] Hct 35.1(L) 35.6 - 45.5 % [facility] Plt 269 150 - 400 K/cumm [facility] MPV 9.9 9.1 - 12.3 fL [facility] RBC 3.96 3.90 - 5.20 M/cumm [facility] MCV 88.6 81.3 - 96.4 fL [facility] MCH 29.5 27.1 - 33.3 pg [facility] MCHC 33.3 32.3 - 35.7 g/dL [facility] RDW CV 14.3 11.1 - 14.9 % [facility] RDW SD 46.5 35.7 - 48.1 fL [facility] NRBC abs 0.00 0.00 - 0.01 K/cumm [facility] Blood 08/01/2024 4:33 AM CDT 08/01/2024 4:48 AM CDT Anastasia Amaro MD LAB BLOOD ORDERABLES Final Result Performing Organization Address [facility] de Phone Number [facility] [address] [place] [address] * Type and screen (08/01/2024 4:33 AM CDT) Pathologist [facility] Abiodun, indirect Negative ABO Rh O Negative [facility] Blood 08/01/2024 4:33 AM CDT 08/01/2024 5:12 AM CDT Narrative [facility] - 08/01/2024 6:16 AM CDT Has the patient had Daratumumab or Isatuximab in the past 6 months?->Unknown Anastasia Amaro MD LAB BLOOD BANK TEST ORDERA BLES Final Result Performing Organization Address [facility] de Phone Number [facility] Department [place] [address] * (ABNORMAL) Comprehensive metabolic panel (08/01/2024 4:33 AM CDT) Pathologist [facility] Sodium 140 135 - 145 mmol/L Potassium, pl 3.8 3.3 - 4.9 mmol/L [facility] Chloride 106 97 - 110 mmol/L [facility] CO2 23 22 - 32 mmol/L [facility] Anion gap 11 2 - 15 mmol/L [facility] BUN 7 6 - 25 mg/dL [facility] Creatinine 0.46(L) 0.60 - 1.10 mg/dL [facility] Glucose 75 70 - 199 mg/dL [facility] Comment: Interpretive Data Fasting glucose >/= [...] Calcium 9.2 8.5 - 10.3 mg/dL [facility] Bilirubin, total 0.2 0.1 - 1.2 mg/dL [facility] Protein, pl 6.1(L) 6.5 - 8.5 g/dL [facility] Albumin 3.1(L) 3.5 - 5.0 g/dL [facility] Alk phos 69 40 - 130 Units/L [facility] ALT 30 7 - 45 Units/L [facility] AST 28 10 - 45 Units/L [facility] Blood 08/01/2024 4:33 AM CDT 08/01/2024 4:48 AM CDT Anastasia Amaro MD LAB BLOOD ORDERABLES Final Result [facility] Department [place] [address] * (ABNORMAL) CBC without differential (07/31/2024 5:09 AM CDT) [facility] WBC 11.0(H) 3.8 - 9.9 K/cumm Hgb 10.8(L) 11.9 - 15.5 g/dL [facility] Hct 33.1(L) 35.6 - 45.5 % [facility] Plt 257 150 - 400 K/cumm [facility] MPV 10.3 9.1 - 12.3 fL [facility] RBC 3.71(L) 3.90 - 5.20 M/cumm [facility] MCV 89.2 81.3 - 96.4 fL [facility] MCH 29.1 27.1 - 33.3 pg [facility] MCHC 32.6 32.3 - 35.7 g/dL [facility] RDW CV 14.3 11.1 - 14.9 % [facility] RDW SD 46.8 35.7 - 48.1 fL [facility] NRBC abs 0.02(H) 0.00 - 0.01 K/cumm [facility] Blood 07/31/2024 5:09 AM CDT 07/31/2024 5:27 AM CDT Anastasia Amaro MD LAB BLOOD ORDERABLES Final Result Performing Organization Address City/[facility] Co de Phone Number [facility] Department [place] [address] * Magnesium (07/31/2024 5:07 AM CDT) [facility] Magnesium 1.9 1.4 - 2.5 mg/dL Blood 07/31/2024 5:07 AM CDT 07/31/2024 5:26 AM CDT us Anastasia Amaro MD LAB BLOOD ORDERABLES Final Result Performing Organization Address City/[facility] de Phone Number [facility] Department [place] [address] * eGFR (07/30/2024 4:49 AM CDT) [facility] eGFR >90 >=60 mL/min/1. 73 m2 Comment: [...] MD LAB BLOOD ORDERABLES Final Result [facility] Department [place] [address] * (ABNORMAL) CBC without differential (07/30/2024 4:49 AM CDT) WBC 10.2(H) 3.8 - 9.9 K/cumm Hgb 10.9(L) 11.9 - 15.5 g/dL [facility] Hct 32.5(L) 35.6 - 45.5 % [facility] Plt 262 150 - 400 K/cumm [facility] MPV 10.0 9.1 - 12.3 fL [facility] RBC 3.65(L) 3.90 - 5.20 M/cumm [facility] MCV 89.0 81.3 - 96.4 fL [facility] MCH 29.9 27.1 - 33.3 pg [facility] MCHC 33.5 32.3 - 35.7 g/dL [facility] RDW CV 14.4 11.1 - 14.9 % [facility] RDW SD 46.5 35.7 - 48.1 fL [facility] NRBC abs 0.00 0.00 - 0.01 K/cumm [facility] Blood 07/30/2024 4:49 AM CDT 07/30/2024 5:02 AM CDT Anastasia Amaro MD LAB BLOOD ORDERABLES Final Result Performing Organization Address City/[facility]/ZIP Co de Phone Number [facility] Department of [address] [place] [address] * Magnesium (07/30/2024 4:49 AM CDT) [facility] Magnesium 2.3 1.4 - 2.5 mg/dL Blood 07/30/2024 4:49 AM CDT 07/30/2024 5:02 AM CDT Anastasia Amaro MD LAB BLOOD ORDERABLES Final Result Performing Organization Address [facility] de Phone Number [facility] [address] [place] [address] * (ABNORMAL) Comprehensive metabolic panel (07/30/2024 4:49 AM CDT) [facility] Sodium 140 135 - 145 mmol/L Potassium, pl 3.9 3.3 - 4.9 mmol/L [facility] Chloride 108 97 - 110 mmol/L [facility] CO2 22 22 - 32 mmol/L [facility] Anion gap 10 2 - 15 mmol/L [facility] BUN 5(L) 6 - 25 mg/dL [facility] Creatinine 0.46(L) 0.60 - 1.10 mg/dL [facility] Glucose 100 70 - 199 mg/dL [facility] Comment: Interpretive Data Fasting glucose >/= [...] 2022. Calcium 8.6 8.5 - 10.3 mg/dL [facility] Bilirubin, total 0.3 0.1 - 1.2 mg/dL [facility] Protein, pl 6.2(L) 6.5 - 8.5 g/dL [facility] Albumin 3.2(L) 3.5 - 5.0 g/dL [facility] Alk phos 70 40 - 130 Units/L [facility] ALT 22 7 - 45 Units/L [facility] AST 23 10 - 45 Units/L [facility] Blood 07/30/2024 4:49 AM CDT 07/30/2024 5:02 AM CDT Anastasia Amaro MD LAB BLOOD ORDERABLES Final Result Performing Organization Address [facility] Co de Phone Number [facility] Department of [address] [place] [address] * Check Sample (07/29/2024 6:47 AM CDT) ABO Rh O Negative [facility] OTHER 07/29/2024 6:47 AM CDT 07/29/2024 7:10 AM CDT Anastasia Amaro MD LAB BLOOD ORDERABLES Final Result Performing Organization Address [facility] Co de Phone Number [facility] Department of [address] [place] [address] [facility] * eGFR (07/29/2024 5:43 AM CDT) eGFR [...] MD LAB BLOOD ORDERABLES Final Result [facility] Department [place] [address] * HIV 1/2 Antibody plus p24 Antigen [...] GENERAL ORDERABLES Final Result Performing Organization Address [facility] de Phone Number [facility] [address] [place] [address] * Protein / creatinine ratio, urine, random (07/29/2024 5:43 AM CDT) [facility] Protein, ur, quant 8.4 mg/dL Comment: Interpretive Data No reference range established. Current interpretive data was last revised 2019. Creatinine Ur 82.2 mg/dL [facility] Comment: Interpretive Data No reference range established. Current interpretive data was last revised 2019. Protein/creatinin e ratio 102.2 0.0 - 180.0 mg/g CR [facility] Urine 07/29/2024 5:43 AM CDT 07/29/2024 9:30 AM CDT Anastasia Amaro MD LAB URINE ORDERABLES Final Result Performing Organization Address [facility] [place] [address] * RPR Blood (07/29/2024 5:43 AM CDT) [facility] RPR Nonreactive Nonreactive Blood 07/29/2024 5:43 AM CDT 07/29/2024 6:36 AM CDT Anastasia Amaro MD LAB MICROBIOLOGY - GENERAL ORDERABLES Final Result Performing Organization Address [facility] [place] [address] * (ABNORMAL) CBC without differential (07/29/2024 5:43 AM CDT) [facility] WBC 9.6 3.8 - 9.9 K/cumm Hgb 11.2(L) 11.9 - 15.5 g/dL [facility] Hct 33.5(L) 35.6 - 45.5 % [facility] Plt 291 150 - 400 K/cumm [facility] MPV 10.4 9.1 - 12.3 fL [facility] RBC 3.83(L) 3.90 - 5.20 M/cumm [facility] MCV 87.5 81.3 - 96.4 fL [facility] MCH 29.2 27.1 - 33.3 pg [facility] MCHC 33.4 32.3 - 35.7 g/dL [facility] RDW CV 14.2 11.1 - 14.9 % [facility] RDW SD 45.5 35.7 - 48.1 fL [facility] NRBC abs 0.00 0.00 - 0.01 K/cumm [facility] Blood 07/29/2024 5:43 AM CDT 07/29/2024 6:35 AM CDT Anastasia Amaro MD LAB BLOOD ORDERABLES Final Result Performing Organization Address City/[facility]/ZIP Co de Phone Number [facility] Department of [address] [place] [address] * Type and screen (07/29/2024 5:43 AM CDT) Pathologist [facility] Abiodun, indirect Negative ABO Rh O Negative [facility] Blood 07/29/2024 5:43 AM CDT 07/29/2024 6:37 AM CDT Narrative [facility] - 07/29/2024 7:26 AM CDT Has the patient had Daratumumab or Isatuximab in the past 6 months?->Unknown Anastasia Amaro MD LAB BLOOD BANK TEST ORDERA BLES Final Result [facility] [place] [address] * (ABNORMAL) Magnesium (07/29/2024 5:43 AM CDT) Magnesium 3.7(H) 1.4 - 2.5 mg/dL Blood 07/29/2024 5:43 AM CDT 07/29/2024 6:36 AM CDT Anastasia Amaro MD LAB BLOOD ORDERABLES Final Result [facility] Department [place] [address] * (ABNORMAL) Comprehensive metabolic panel (07/29/2024 5:43 AM CDT) Pathologist [facility] Sodium 140 135 - 145 mmol/L Potassium, pl 3.4 3.3 - 4.9 mmol/L [facility] Chloride 103 97 - 110 mmol/L [facility] CO2 22 22 - 32 mmol/L [facility] Anion gap 15 2 - 15 mmol/L [facility] BUN 5(L) 6 - 25 mg/dL [facility] Creatinine 0.51(L) 0.60 - 1.10 mg/dL [facility] Glucose 92 70 - 199 mg/dL [facility] Comment: Interpretive Data Fasting glucose >/= [...] Calcium 8.5 8.5 - 10.3 mg/dL [facility] Bilirubin, total 0.6 0.1 - 1.2 mg/dL [facility] Protein, pl 6.5 6.5 - 8.5 g/dL [facility] Albumin 3.7 3.5 - 5.0 g/dL [facility] Alk phos 74 40 - 130 Units/L [facility] ALT 20 7 - 45 Units/L [facility] AST 25 10 - 45 Units/L [facility] Blood 07/29/2024 5:43 AM CDT 07/29/2024 6:36 AM CDT us Anastasia Amaro MD LAB BLOOD ORDERABLES Final Result [facility] Department [place] [address] * eGFR (07/28/2024 10:30 PM CDT) eGFR [...] ORDERABLES F inal Result Performing Organization Address City/[facility]/ZIP Co de Phone Number [facility] ([place]) 1 [facility] Department [place] [address] * (ABNORMAL) Urinalysis reflex to microscopic and [...] tendency for uric acid stone formation. Source: [facility] [address] Current Interpretive Data was last revised on [...] - GEN ERAL ORDERABLES Final Result [facility] ([place]) 1 [facility] Department [place] [address] * Protein / creatinine ratio, urine, random (07/28/2024 10:30 PM CDT) Pathologist [facility] Protein, ur, quant 13.9 mg/dL Comment: Interpretive Data No reference range established. Current interpretive data was last revised 2019. Creatinine Ur 113.7 mg/dL [facility] ([place]) Comment: Interpretive Data No reference range established. Current interpretive data was last revised 2019. Protein/creatinin e ratio 122.3 0.0 - 180.0 mg/g CR [facility] ([place]) Urine 07/28/2024 10:3 0 PM CDT 07/28/2024 10:37 PM CDT us Kodak Sterling MD LAB URINE ORDERABLES F inal Result [facility] ([place]) 1 [facility] Department [place] [address] * (ABNORMAL) CBC without differential (07/28/2024 10:30 PM CDT) Pathologist [facility] WBC 9.3 3.8 - 9.9 K/cumm Hgb [...] ORDERABLES F inal Result Performing Organization Address [facility] Co de Phone Number [facility] ([place]) 1 [facility] [address] [place] [address] * Uric acid (07/28/2024 10:30 PM CDT) Pathologist [facility] Uric acid 5.5 2.5 - 7.0 mg/dL Blood 07/28/2024 10:3 0 PM CDT 07/28/2024 10:36 PM CDT Kodak Sterling MD LAB BLOOD ORDERABLES F inal Result Performing Organization Address [facility] Co de Phone Number [facility] ([place]) 1 [facility] [address] [place] [address] * Lactate dehydrogenase (LD) (07/28/2024 10:30 PM CDT) Pathologist [facility] Lactate dehydrogenase (LDH) 163 100 - 250 Units/L Blood 07/28/2024 10:3 0 PM CDT 07/28/2024 10:36 PM CDT Kodak Sterling MD LAB BLOOD ORDERABLES F inal Result Performing Organization Address [facility] Co de Phone Number [facility] ([place]) 1 [facility] [address] [place] [address] * (ABNORMAL) Comprehensive metabolic panel (07/28/2024 10:30 PM CDT) Pathologist [facility] Sodium 135 135 - 145 mmol/L Potassium, pl 3.1(L) 3.3 - 4.9 mmol/L [facility] ([place]) Chloride 101 97 - 110 mmol/L [facility] ([place]) CO2 20(L) 22 - 32 [...] BLOOD ORDERABLES F inal Result [facility] ([place]) 1 [facility] Department [place] [address] * eGFR (07/27/2024 4:00 PM CDT) eGFR [...] MD LAB BLOOD ORDERABLES Final Re sult [facility] [address] Department of Laboratories [place], [place] [id number] * Differential, auto (07/27/2024 4:00 PM CDT) Neutrophil abs 5.9 1.5 - 6.5 K/cumm Imm gran abs 0.1 0.0 - 0.1 K/cumm [facility] Lymphocyte abs 2.0 0.8 - 3.3 K/cumm [facility] Monocyte abs 0.8 0.2 - 0.8 K/cumm [facility] Eosinophil abs 0.1 0.0 - 0.5 K/cumm [facility] Basophil abs 0.0 0.0 - 0.1 K/cumm [facility] Neutrophil pct 66.7 % [facility] Comment: Interpretive Data Percent cell count reference ranges are not reported, since discordance with absolute values may lead to misinterpretation of CBC data. Current Interpretive Data was last revised on 2018. Imm gran pct 0.8 % [facility] Comment: Interpretive Data Percent cell count reference ranges are not reported, since discordance with absolute values may lead to misinterpretation of CBC data. Current Interpretive Data was last revised on 2018. Lymphocyte pct 22.5 % [facility] Comment: Interpretive Data Percent cell count reference ranges are not reported, since discordance with absolute values may lead to misinterpretation of CBC data. Current Interpretive Data was last revised on 2018. Monocyte pct 8.4 % [facility] Comment: Interpretive Data Percent cell count reference ranges are not reported, since discordance with absolute values may lead to misinterpretation of CBC data. Current Interpretive Data was last revised on 2018. Eosinophil pct 1.4 % [facility] Comment: Interpretive Data Percent cell count reference ranges are not reported, since discordance with absolute values may lead to misinterpretation of CBC data. Current Interpretive Data was last revised on 2018. Basophil pct 0.2 % [facility] Comment: Interpretive Data Percent cell count reference ranges are not reported, since discordance with absolute values may lead to misinterpretation of CBC data. Current Interpretive Data was last revised on 2018. Blood 07/27/2024 4:00 PM CDT 07/27/2024 4:39 PM CDT us Byorn Tellez MD LAB BLOOD ORDERABLES Final Re sult [facility] [address] Department [place] [address] * CBC with auto differential (07/27/2024 4:00 PM CDT) WBC 8.9 3.8 - 9.9 K/cumm Hgb 13.0 11.9 - 15.5 g/dL [facility] Hct 37.9 35.6 - 45.5 % [facility] Plt 298 150 - 400 K/cumm [facility] MPV 10.0 9.1 - 12.3 fL [facility] RBC 4.25 3.90 - 5.20 M/cumm [facility] MCV 89.2 81.3 - 96.4 fL [facility] MCH 30.6 27.1 - 33.3 pg [facility] MCHC 34.3 32.3 - 35.7 g/dL [facility] RDW CV 14.1 11.1 - 14.9 % [facility] RDW SD 46.0 35.7 - 48.1 fL [facility] NRBC abs 0.00 0.00 - 0.01 K/cumm [facility] Blood 07/27/2024 4:00 PM CDT 07/27/2024 4:39 PM CDT Byron Tellez MD LAB BLOOD ORDERABLES Final Re sult Performing Organization Address [facility] de Phone Number [facility] [address] [facility] [address] [place] [address] * Protein / creatinine ratio, urine, random (07/27/2024 4:00 PM CDT) Protein, ur, quant 25.0 mg/dL Comment: Interpretive Data No reference range established. Current interpretive data was last revised 2019. Creatinine Ur 157.3 mg/dL [facility] Comment: Interpretive Data No reference range established. Current interpretive data was last revised 2019. Protein/creatinin e ratio 158.9 0.0 - 180.0 mg/g CR [facility] Urine 07/27/2024 4:0 0 PM CDT 07/27/2024 4:44 PM CDT Byron Tellze MD LAB URINE ORDERABLES Final Re sult Performing Organization Address [facility]/ZIP Co de Phone Number [facility] [address] Department [place] [address] * Uric acid (07/27/2024 4:00 PM CDT) [facility] Uric acid 4.9 2.5 - 7.0 mg/dL Blood 07/27/2024 4:00 PM CDT 07/27/2024 4:45 PM CDT Byron Tellez MD LAB BLOOD ORDERABLES Final Re sult [facility] [address] Department [place] [address] * (ABNORMAL) Comprehensive metabolic panel (07/27/2024 4:00 PM CDT) [facility] Sodium 137 135 - 145 mmol/L Potassium, pl 3.5 3.3 - 4.9 mmol/L [facility] Chloride 104 97 - 110 mmol/L [facility] CO2 21(L) 22 - 32 mmol/L [facility] Anion gap 12 2 - 15 mmol/L [facility] BUN 5(L) 6 - 25 mg/dL [facility] Creatinine 0.53(L) 0.60 - 1.10 mg/dL [facility] Glucose 75 70 - 199 mg/dL [facility] Comment: Interpretive Data Fasting glucose >/= 126 [...] 2022. Calcium 9.4 8.5 - 10.3 mg/dL [facility] Bilirubin, total 0.4 0.1 - 1.2 mg/dL [facility] Protein, pl 7.1 6.5 - 8.5 g/dL [facility] Albumin 3.7 3.5 - 5.0 g/dL [facility] Alk phos 72 40 - 130 Units/L [facility] ALT 20 7 - 45 Units/L [facility] AST 21 10 - 45 Units/L [facility] Blood 07/27/2024 4:00 PM CDT 07/27/2024 4:45 PM CDT Byron Tellez MD LAB BLOOD ORDERABLES Final Re sult [facility] [address] Department [place] [address] * (ABNORMAL) POCT urinalysis dipstick (07/27/2024 3:19 PM CDT) Glucose, ur, POC Negative Negative MG/DL Bilirubin, ur, POC Small Negative, Small, Moderate, Large Ketones, ur, POC 15.(A) Negative Specific [place], POC 1.020 1.003 - 1.030 Blood, ur, [...] TVUS CL measures 37 mmwithout funneling today. Dia Mantilla MD IMG OB US PROCEDURE [...] Large Ketones, ur, POC Negative Negative Specific [place], POC 1.025 1.003 - 1.030 Blood, ur, [...] BLOOD ORDERABLE S Final Result [facility] ([place]) 1 [facility] Department of Laboratories [place], [place] [id number] * (ABNORMAL) POCT OB urine short dip (glucose, protein, ketones) (07/12/2024 10:31 AM CDT) Pathologist [facility] Glucose, ur, POC Negative Negative MG/DL Protein, ur, POC Trace(A) Negative Ketones, ur, POC Negative Negative Lot Number [id number] Urine 07/12/2024 10:3 1 AM CDT Result [facility] Dia Mantilla MD POINT OF CARE [...] MICROBIOLOGY - GENERAL ORDERABLES Final Result [facility] [address] Department [place] [address] from Last 3 Months or Most Recently Relevant to Health Maintenance [place] [facility] [place] Advance Directives For more information, please contact: [phone] * Full Code (Latest Code Status on File) Date Activated Date Inactivated Comments 09/19/2024 4:34 PM 09/22/2024 3:32 PM * Full Code Date Activated Date Inactivated Comments 07/29/2024 3:05 AM 09/19/2024 4:34 PM Care Teams [employer] Relationship Specialty Start Date End Date No, Physician PCP - General 02/25/24
--- OUTSIDE RECORDS SUMMARY | 2024-10-10 01:45 | XMS_ITS | Encounter Summary ---
Author Organization [facility] Healthcare Address [address] [place] [address] Care Team Providers Care Traffic Control Specialist Name Role Phone No, Physician Primary Care Provider [phone] Encounter Details Date Type Department Care Team (Late st Contact Info) Description 09/30/[address] [facility] [address] [place] [address] Social History Tobacco Use Types Packs/Day Years Used Date Smoking Tobacco: Never Smokeless Tobacco: Never [facility] Utilities Answer Date Recorded In the past 12 months has [facility] electric, gas, oil, or water company [...] any clubs o r organizations such as gnosticism groups, unions, fraternal or athletic groups, or [...] staff should administer the PHQ-9) 0 07/28/2024 [facility] - Occupational Stress Questionnaire Answer Date [...] things needed for daily living? No 07/29/2024 [place] Depression Scale Answer Date Recorded [place] Depression Scale Total 8 07/12/2024 The thought [...] were you homeless or living in a residential (including now)? No 07/29/2024 Personal Safety Answer Date Recorded Have you ever been in or are you currently in a harmful physical or emotional relationship or is someone making you feel afraid or unsafe? 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 Consult Note Patient name: Regino Leon Mother's Name: Suki Leon Mother's Age: 27 y.o. /Para/: Father's Name: Date of : 09/19/2024 Time of : 2:59 PM Delivery Type: Today's Date: 09/30/2024 Admission Date: 09/19/2024 3:58 PM Weight: 2530 g (5 lb 9.2 oz) Length: 18.307 Current Gestational Age: 35w 4d Patient Active Problem List Diagnosis of 34 completed weeks of gestation Prematurity RDS (respiratory distress syndrome in the ) Immature thermoregulation Feeding problem in infant Note: Spoke with mother at the bedside. Mom concerned about while on antibiotic Ciprofloxacin. Reviewed information available in Dr. Layne's medication and mother's milk that has the medication listed as L3-limited data- problably compatible, medical team aware. E ncouraged continued frequent pumping. Mother denies any discomfort with pumping. I encouraged dailyskin to skin care when able. Mother has no other concerns at this time. Support and encouragement offered. 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
--- OUTSIDE RECORDS SUMMARY | 2024-10-10 01:45 | XMS_ITS | Encounter Summary ---
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 Never 07/29/2024 Do you belong to any clubs o r organizations such as religion groups, unions, fraternal or athletic groups, or [...] staff should administer the PHQ-9) 0 07/28/2024 [facility] - Occupational Stress Questionnaire Answer Date Recorded [...] things needed for daily living? 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
--- OUTSIDE RECORDS SUMMARY | 2024-10-10 01:45 | XMS_ITS | Referral Summary ---
Author Organization [facility] Address [address] [place] [address] Care Team Providers Care Real Estate Transaction Manager Name Role Phone No, Physician Primary Care Provider [phone] Encounters Date Type Department Care Team Description 10/07/2024 [place] [address] Nancy Noel, [facility] 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 Discharge Disposition: Discharge to home or self care 09/19/2024 1:57 PM WINDOWS MOBILE DEVELOPER Anesthesia Event [address] [address] Sidra Ann MD Bailey, Rei Patel MD 09/19/2024 1:30 PM WINDOWS MOBILE DEVELOPER - 09/19/2024 4:05 PM WINDOWS MOBILE DEVELOPER Surgery [address] [address] Josefina Peter MD SECTION 09/15/2024 9:00 AM WINDOWS MOBILE DEVELOPER Ancillary Procedure [address] [address] 09/08/2024 10:00 AM WINDOWS MOBILE DEVELOPER Ancillary Procedure [address] [address] 08/24/2024 12:30 PM WINDOWS MOBILE DEVELOPER Ancillary Procedure [address] [address] 08/16/2024 8:15 AM WINDOWS MOBILE DEVELOPER Ancillary Procedure [address] [address] 08/09/2024 9:30 AM WINDOWS MOBILE DEVELOPER Ancillary Procedure [address] [address] 08/05/2024 Telephone [facility] [address] [facility] [address] [place] [address] Dia Mantilla MD 08/03/2024 Telephone [facility] [address] [facility] [address] [place] [address] Dia Mantilla MD admission 08/03/2024 11:34 AM CDT - 08/03/2024 11:59 PM CDT Hospital Encounter [facility] Pediatric Cardiology [facility] 2nd Floor [address] [place] [phone] Discharge Disposition: Discharge to home or self care 08/03/2024 11:34 AM CDT - 08/03/2024 11:59 PM CDT Hospital Encounter [facility] Pediatric Cardiology [facility] 2nd Floor [address] [place] [phone] Discharge Disposition: Discharge to home or self care 08/02/2024 9:15 AM CDT Ancillary Procedure [address] [address] 07/29/2024 3:15 PM CDT - 07/29/2024 11:59 PM CDT Hospital Encounter [facility] [phone] Discharge Disposition: Discharge to home or self care 07/28/2024 9:32 PM CDT - 07/29/2024 1:41 AM CDT Hospital Encounter [facility] [address] [place] [address] Dia Mantilla MD Discharge Disposition: Discharge to a critical access hospital 07/28/2024 Telephone [facility] [address] [facility] [address] [place] [address] Dia Mantilla MD 07/27/2024 Orders Only [facility] at [facility] [address] [facility] [address] [place] [address] [place], Francine Twin , unable to determine number of placenta and number of amniotic sacs, antepartum, unspecified trimester (Primary Dx); BMI 40.0-44.9, adult (HCC); Maternal varicella, non-immune; Rh negative state in antepartum period; Long-term current use of antidepressant; Anxiety disorder, unspecified type 07/27/2024 3:59 PM CDT - 07/27/2024 11:59 PM CDT Hospital Encounter [place] [phone] [place] [address] Discharge Disposition: Discharge to home or self care 07/27/2024 2:30 PM CDT Office Visit [facility] M[facility] Medicine at [place] [phone] [facility] [address] [place] [phone] Byron Tellez MD Unspecified high-risk (Primary Dx) 07/27/2024 12:18 PM CDT - 07/27/2024 11:59 PM CDT Hospital Encounter [facility] Maternal Medicine Ultrasound[facility] [address] [place] [address] High risk , antepartum; Monochorionic diamniotic twin , antepartum Discharge Disposition: Discharge to home or self care 07/13/2024 2:30 PM CDT Office Visit [facility] at [facility] [address] [facility] [address] [place] [address] Nancy Be NP Unspecified high-risk (Primary Dx) 07/13/2024 11:25 AM CDT - 07/13/2024 11:59 PM CDT Hospital Encounter [facility] Maternal Medicine Ultrasound[facility] [address] [place] [address] High risk , antepartum; Monochorionic diamniotic twin , antepartum Discharge Disposition: Discharge to home or self care 07/12/2024 Telephone [facility] [address] [place] [address] Dia Mantilla MD Test Results 07/12/2024 10:55 AM CDT Lab [address] Encounter for supervision of normal first in first trimester 07/12/2024 10:00 AM CDT Ancillary Procedure [address] [place] [address] Ultrasound scan done for inability to hear heart tones 07/12/2024 10:30 AM CDT Routine [address] [place] [address] Dia Mantilla MD Twin , unable to [...] total) by mouth daily 30 capsule 11 10/09/20 24 024 Discontinued(St op Taking at Discharge) [...] Blood pressures well controlled on N120XL and Q286TMZ. CBC/CMP WNL, UPC 0.1. Enrolled in remote [...] # Disposition: Follow up task sent to [facility] scheduling pool for appointments in 2 and 6 weeks. They are enrolled in remote blood pressure monitoring for their BP check. Desires discharge home today. Service Coverage These phones are service phones and carried 27/04 in house: R1 (first call) [phone] R1 alt (second call) [phone] R4 (Chief) [phone] 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 08/29/2024 [...] Blood pressures well controlled on N120XL and [id number]. Magnesium for seizure prophylaxis. #sinus tachycardia, intermittent: [...] found out that that would be in [place] he used an expletive to express that [...] Tobacco: Never Tobacco Cessation:Counseling Given: Not Answered [facility] Utilities Answer Date Recorded In the past 12 months has th e [employer], [employer], oil, or water [employer] threatened to shut off services in [...] How often do you attend chur or anabaptism services? Never 07/29/2024 Do you belong to [...] staff should administer the PHQ-9) 0 07/28/2024 [facility] of Occupat ional Health - Occupational Stress [...] things needed for daily living? No 07/29/2024 Range Depression Scale Answer Date Recorded Range Depression Scale Total 8 07/12/2024 The thought [...] in the past 12 m [facility], were you homeless or living in a [...] on file Legal Sex Female 2:19 AM WINDOWS MOBILE DEVELOPER Gender Identity Not on file Sexual Orientation Not on file Last Filed Vital Signs Vital Sign Reading Time Taken Comments Blood Pressure 138/84 09/22/2024 8:36 AM WINDOWS MOBILE DEVELOPER Pulse 90 09/22/2024 8:36 AM WINDOWS MOBILE DEVELOPER Temperature 36.6 ??C (97.9 ??F) 09/22/2024 8:36 AM CS T Respiratory Rate 17 09/22/2024 8:36 AM WINDOWS MOBILE DEVELOPER Oxygen Saturation 99% 09/22/2024 8:36 AM WINDOWS MOBILE DEVELOPER Inhaled Oxygen Concentration - - Weight 128.8 kg (284 lb) 08/04/2024 8:32 PM CDT Height 165.1 cm (5' 5 ) 08/04/2024 8:32 PM CDT Body Mass Index 47.26 08/04/2024 8:32 PM CDT Plan of Treatment Not on file Procedures Procedure Name Priority Date/Time Associated Diagnosis Comments BLEED SCREEN Timed 09/20/2024 4: 48 AM WINDOWS MOBILE DEVELOPER ABO/RH Timed 09/20/2024 4:48 AM WINDOWS MOBILE DEVELOPER CBC WITHOUT DIFFERENTIAL Routine 09/20/2024 4:48 AM WINDOWS MOBILE DEVELOPER RH IMMUNE GLOBULIN EVAL Timed 09/20/2024 4:48 AM WINDOWS MOBILE DEVELOPER SURGICAL PATHOLOGY Routine 09/19/2024 4: 06 PM WINDOWS MOBILE DEVELOPER ANESTHESIA EPIDURAL BLOCK Routine 09/19/2024 2:45 PM WINDOWS MOBILE DEVELOPER SECTION 09/19/2024 1:56 PM WINDOWS MOBILE DEVELOPER TIUP Case Notes PreE w/ SF and Multiple gestation EGFR Timed 09/18/2024 6:21 AM WINDOWS MOBILE DEVELOPER COMPREHENSIVE METABOLIC PANEL Timed 09/18/2024 6:21 AM WINDOWS MOBILE DEVELOPER CBC WITHOUT DIFFERENTIAL Timed 09/18/2024 6:21 AM WINDOWS MOBILE DEVELOPER TYPE AND SCREEN Timed 09/18/2024 6:21 AM WINDOWS MOBILE DEVELOPER NONSTRESS TEST Routine 09/17/2024 2:58 PM WINDOWS MOBILE DEVELOPER Preeclampsia, unspecified trimester 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 US OB FOLLOW UP IP Routine 09/15/2024 1:08 PM WINDOWS MOBILE DEVELOPER EGFR Timed 09/15/2024 6:17 AM WINDOWS MOBILE DEVELOPER COMPREHENSIVE METABOLIC PANEL Timed 09/15/2024 6:17 AM WINDOWS MOBILE DEVELOPER CBC WITHOUT DIFFERENTIAL Timed 09/15/2024 6:17 AM WINDOWS MOBILE DEVELOPER TYPE AND SCREEN Timed 09/15/2024 6:17 AM WINDOWS MOBILE DEVELOPER NONSTRESS TEST Routine 09/13/2024 5:10 PM WINDOWS MOBILE DEVELOPER Preeclampsia, unspecified trimester 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 EGFR Timed 09/12/2024 6:35 AM WINDOWS MOBILE DEVELOPER COMPREHENSIVE METABOLIC PANEL Timed 09/12/2024 6:35 AM WINDOWS MOBILE DEVELOPER CBC WITHOUT DIFFERENTIAL Timed 09/12/2024 6:35 AM WINDOWS MOBILE DEVELOPER TYPE AND SCREEN Timed 09/12/2024 6:35 AM WINDOWS MOBILE DEVELOPER EGFR Timed 09/09/2024 6:24 AM WINDOWS MOBILE DEVELOPER COMPREHENSIVE METABOLIC PANEL Timed 09/09/2024 6:24 AM WINDOWS MOBILE DEVELOPER CBC WITHOUT DIFFERENTIAL Timed 09/09/2024 6:24 AM WINDOWS MOBILE DEVELOPER TYPE AND SCREEN Timed 09/09/2024 6:24 AM WINDOWS MOBILE DEVELOPER US OB LIMITED IP Routine 09/08/2024 10:29 AM WINDOWS MOBILE DEVELOPER NONSTRESS TEST Routine 09/06/2024 8:38 PM WINDOWS MOBILE DEVELOPER Preeclampsia, unspecified trimester 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 EGFR Timed 09/06/2024 4:31 AM WINDOWS MOBILE DEVELOPER COMPREHENSIVE METABOLIC PANEL Timed 09/06/2024 4:31 AM WINDOWS MOBILE DEVELOPER CBC WITHOUT DIFFERENTIAL Timed 09/06/2024 4:31 AM WINDOWS MOBILE DEVELOPER TYPE AND SCREEN Timed 09/06/2024 4:31 AM WINDOWS MOBILE DEVELOPER GROUP B STREPTOCOCCUS CULTURE Routine 09/03/2024 10:29 AM WINDOWS MOBILE DEVELOPER EGFR Timed 09/03/2024 5:26 AM WINDOWS MOBILE DEVELOPER COMPREHENSIVE METABOLIC PANEL Timed 09/03/2024 5:26 AM WINDOWS MOBILE DEVELOPER CBC WITHOUT DIFFERENTIAL Timed 09/03/2024 5:26 AM WINDOWS MOBILE DEVELOPER TYPE AND SCREEN Timed 09/03/2024 5:26 AM WINDOWS MOBILE DEVELOPER ECG 12-LEAD Routine 09/02/2024 4:33 PM WINDOWS MOBILE DEVELOPER EGFR Timed 08/31/2024 6:20 AM WINDOWS MOBILE DEVELOPER COMPREHENSIVE METABOLIC PANEL Timed 08/31/2024 6:20 AM WINDOWS MOBILE DEVELOPER CBC WITHOUT DIFFERENTIAL Timed 08/31/2024 6:20 AM WINDOWS MOBILE DEVELOPER TYPE AND SCREEN Timed 08/31/2024 6:20 AM WINDOWS MOBILE DEVELOPER NONSTRESS TEST Routine 08/29/2024 2:32 PM WINDOWS MOBILE DEVELOPER Preeclampsia, unspecified trimester 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 NONSTRESS TEST Routine 08/28/2024 7:47 PM WINDOWS MOBILE DEVELOPER Preeclampsia, unspecified trimester 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 EGFR Timed 08/28/2024 6:00 AM WINDOWS MOBILE DEVELOPER COMPREHENSIVE METABOLIC PANEL Timed 08/28/2024 6:00 AM WINDOWS MOBILE DEVELOPER CBC WITHOUT DIFFERENTIAL Timed 08/28/2024 6:00 AM WINDOWS MOBILE DEVELOPER TYPE AND SCREEN Timed 08/28/2024 6:00 AM WINDOWS MOBILE DEVELOPER EGFR Timed 08/25/2024 6:19 AM WINDOWS MOBILE DEVELOPER COMPREHENSIVE METABOLIC PANEL Timed 08/25/2024 6:19 AM WINDOWS MOBILE DEVELOPER CBC WITHOUT DIFFERENTIAL Timed 08/25/2024 6:19 AM WINDOWS MOBILE DEVELOPER TYPE AND SCREEN Timed 08/25/2024 6:19 AM WINDOWS MOBILE DEVELOPER US OB FOLLOW UP IP Routine 08/24/2024 9:37 AM WINDOWS MOBILE DEVELOPER EGFR Timed 08/22/2024 6:02 AM WINDOWS MOBILE DEVELOPER COMPREHENSIVE METABOLIC PANEL Timed 08/22/2024 6:02 AM WINDOWS MOBILE DEVELOPER CBC WITHOUT DIFFERENTIAL Timed 08/22/2024 6:02 AM WINDOWS MOBILE DEVELOPER TYPE AND SCREEN Timed 08/22/2024 6:02 AM WINDOWS MOBILE DEVELOPER EGFR Timed 08/19/2024 6:25 AM WINDOWS MOBILE DEVELOPER COMPREHENSIVE METABOLIC PANEL Timed 08/19/2024 6:25 AM WINDOWS MOBILE DEVELOPER CBC WITHOUT DIFFERENTIAL Timed 08/19/2024 6:25 AM WINDOWS MOBILE DEVELOPER TYPE AND SCREEN Timed 08/19/2024 6:25 AM WINDOWS MOBILE DEVELOPER US OB LIMITED IP Routine 08/16/2024 8:35 AM WINDOWS MOBILE DEVELOPER ANTIBODY IDENTIFICATION Routine 08/16/2024 7:34 AM WINDOWS MOBILE DEVELOPER EGFR Timed 08/16/2024 6:15 AM WINDOWS MOBILE DEVELOPER THYROID FUNCTION CASCADE Routine 08/16/2024 6:15 AM WINDOWS MOBILE DEVELOPER COMPREHENSIVE METABOLIC PANEL Timed 08/16/2024 6:15 AM WINDOWS MOBILE DEVELOPER CBC WITHOUT DIFFERENTIAL Timed 08/16/2024 6:15 AM WINDOWS MOBILE DEVELOPER TYPE AND SCREEN Timed 08/16/2024 6:15 AM WINDOWS MOBILE DEVELOPER POCT GLUCOSE DEVICE Routine 08/14/2024 3 :06 PM WINDOWS MOBILE DEVELOPER ECG 12-LEAD Routine 08/13/2024 9:02 AM WINDOWS MOBILE DEVELOPER ANTIBODY IDENTIFICATION Routine 08/13/2024 7:42 AM WINDOWS MOBILE DEVELOPER EGFR Timed 08/13/2024 5:44 AM WINDOWS MOBILE DEVELOPER COMPREHENSIVE METABOLIC PANEL Timed 08/13/2024 5:44 AM WINDOWS MOBILE DEVELOPER CBC WITHOUT DIFFERENTIAL Timed 08/13/2024 5:44 AM WINDOWS MOBILE DEVELOPER TYPE AND SCREEN Timed 08/13/2024 5:44 AM WINDOWS MOBILE DEVELOPER RPR Routine 08/13/2024 5:44 AM WINDOWS MOBILE DEVELOPER HIV 1/2 ANTIBODY PLUS P24 ANTIGEN Routine 08/13/2024 5:44 AM WINDOWS MOBILE DEVELOPER GTT 50GM 1HR GESTATIONAL SCREEN Timed 08/12/2024 11:29 AM WINDOWS MOBILE DEVELOPER ANTIBODY IDENTIFICATION Routine 08/10/2024 7:02 AM WINDOWS MOBILE DEVELOPER EGFR Timed 08/10/2024 4:49 AM WINDOWS MOBILE DEVELOPER COMPREHENSIVE METABOLIC PANEL Timed 08/10/2024 4:49 AM WINDOWS MOBILE DEVELOPER CBC WITHOUT DIFFERENTIAL Timed 08/10/2024 4:49 AM WINDOWS MOBILE DEVELOPER TYPE AND SCREEN Timed 08/10/2024 4:49 AM WINDOWS MOBILE DEVELOPER US OB 14 WEEKS OR OVER IP Routine 08/09/2024 9:47 AM WINDOWS MOBILE DEVELOPER ANTIBODY IDENTIFICATION Routine 08/07/2024 6:51 AM WINDOWS MOBILE DEVELOPER EGFR Timed 08/07/2024 5:00 AM WINDOWS MOBILE DEVELOPER COMPREHENSIVE METABOLIC PANEL Timed 08/07/2024 5:00 AM WINDOWS MOBILE DEVELOPER CBC WITHOUT DIFFERENTIAL Timed 08/07/2024 5:00 AM WINDOWS MOBILE DEVELOPER TYPE AND SCREEN Timed 08/07/2024 4:[address]OWS MOBILE [address] CHEST PE W CONTRAST ED Urgent/IP [...] Rh Immune Globulin Eval (09/20/2024 4:48 AM WINDOWS MOBILE DEVELOPER) RhIg Administration 1 vial of Rh Immune Globulin (300 mcg dose) RhIg Eligible Yes, eligible BIA [facility] Blood 09/20/2024 4:48 AM WINDOWS MOBILE DEVELOPER 09/20/2024 5:03 AM WINDOWS MOBILE DEVELOPER Narrative [facility] - 09/20/2024 5:36 AM WINDOWS MOBILE DEVELOPER Number of weeks ?->20 weeks or greater antibody screen result:->Negative Rhogam given?->Given Date Given?->08/01/24 Number of vials requested:->1 Sara Eng MD LAB BLOOD BANK TEST ORDERABL ES Final Result Performing Organization Address [facility] Co de Phone Number [facility] [place] [address] * Bleed Screen (09/20/2024 4:48 AM WINDOWS MOBILE DEVELOPER) Bleed Screen Negative Blood 09/20/2024 4:48 AM WINDOWS MOBILE DEVELOPER 09/20/2024 5:03 AM WINDOWS MOBILE DEVELOPER Rey Quinonez MD LAB BLOOD BANK TEST ORDERABLE S Final Result Performing Organization Address [facility] de Phone Number [facility] [place] [address] * ABO/Rh (09/20/2024 4:48 AM WINDOWS MOBILE DEVELOPER) ABO Rh O Negative Blood 09/20/2024 4:48 AM WINDOWS MOBILE DEVELOPER 09/20/2024 5:03 AM WINDOWS MOBILE DEVELOPER Result [facility] Rey Quinonez MD LAB BLOOD BANK TEST ORDERABLE S Final Result Performing Organization Address [facility] de Phone Number [facility] [place] [address] * (ABNORMAL) CBC without differential (09/20/2024 4:48 AM WINDOWS MOBILE DEVELOPER) WBC 10.3(H) 3.8 - 9.9 K/cumm Hgb 9.7(L) 11.9 - 15.5 g/dL [facility] Hct 28.4(L) 35.6 - 45.5 % [facility] Plt 230 150 - 400 K/cumm [facility] MPV 10.8 9.1 - 12.3 fL [facility] RBC 3.22(L) 3.90 - 5.20 M/cumm [facility] MCV 88.2 81.3 - 96.4 fL [facility] MCH 30.1 27.1 - 33.3 pg [facility] MCHC 34.2 32.3 - 35.7 g/dL [facility] RDW CV 13.9 11.1 - 14.9 % [facility] RDW SD 44.6 35.7 - 48.1 fL [facility] NRBC abs 0.00 0.00 - 0.01 K/cumm [facility] Blood 09/20/2024 4:48 AM WINDOWS MOBILE DEVELOPER 09/20/2024 5:11 AM WINDOWS MOBILE DEVELOPER us Sara Eng MD LAB BLOOD ORDERABLES Final R esult [facility] [place] [address] * Surgical pathology (09/19/2024 4:06 PM WINDOWS MOBILE DEVELOPER) Tissue (Placenta) 09/19/2024 4:06 PM WINDOWS MOBILE DEVELOPER 09/20/2024 8:37 AM WINDOWS MOBILE DEVELOPER Narrative PATHOLOGY [facility] - 09/26/2024 2:16 PM WINDOWS MOBILE DEVELOPER EPIC results best viewed via link to PDF [facility] [place] [address] Note to Patients: This report may contain [...] SURGICAL PATHOLOGY REPORT FINAL Patient Name: ?? DINORA BEE Gender: ??F : ??1995 (Age: 29) Address: ??[address] [place] [address] ??[id number] Hospital #: ??[id number] Taken:09/19/2024 Received:09/20/2024 Reported: 09/26/2024 Patient Type: [facility] Inpatient ?? Service: Obstetrics Location: [facility] ??6800 Physician(s): ??MD Sara Parker M.D. Diagnosis: ??Placenta, delivery - 662 grams diamnionic, monochorionic, pre-term twin placenta - Acute atherosis - Accelerated villous maturation -Trivascular cords with no histopathologic abnormalities [facility]/09/26/2024 14:16 By this signature, I attest that [...] discrete lesions or infarcts are grossly identified. ??Activities Director Scouting sections are submitted: ??A1 = arbitrarily assigned twin A, cord and membranes; A2-4 = twin A, eligibility services representative parenchyma; A5 = common membrane and T- zone; A6 = arbitrarily assigned twin B, cord and membranes; A7-9 = twin B, eligibility services representative parenchyma. ??Jar 3. ? sxv/09/21/2024 11:11 PA(s): Catalino Hernandez MS, FREDRICK ([facility])CM By this signature, I attest that the above diagnosis is based upon my personal examination of the slides(and/or other material). Addenda/Procedures The performance characteristics of some immunohistochemical stains, fluorescence in-situ hybridization tests and immunophenotyping by flow cytometry cited in this report (if any) were determined by the Surgical Pathology and Flow Cytometry Departments at [facility] as part of an ongoing quality assurance/r&d lab technician program and in compliance with federally mandated [...] Surgical Pathology and Flow Cytometry Departments of [facility]. ??It has not been cleared or approved by the U. S. Food and Drug Administration. IMAGES AND SCANNED DOCUMENTS, IF INCLUDED, ONLY VIEWABLE IN PDF VERSION OF REPORT us Sara Eng MD LAB PATHOLOGY ORDERABLES Fin al Result PATHOLOGY [facility] 3rd Floor [place], [place] [phone] * Epidural Block (09/19/2024 2:45 PM WINDOWS MOBILE DEVELOPER) Narrative Abena Denton MD - 09/19/2024 2:45 PM WINDOWS MOBILE DEVELOPER Abena Denton MD ? 09/19/2024 ??2:50 PM [...] Final Result * eGFR (09/18/2024 6:21 AM WINDOWS MOBILE DEVELOPER) eGFR >90 >=60 mL/min/1. 73 m2 Comment: [...] last reviewed 2021. Blood 09/18/2024 6:21 AM WINDOWS MOBILE DEVELOPER 09/18/2024 6:32 AM WINDOWS MOBILE DEVELOPER Anastasia Amaro MD LAB BLOOD ORDERABLES Final Result [facility] [place] [address] * (ABNORMAL) CBC without differential (09/18/2024 6:21 AM WINDOWS MOBILE DEVELOPER) WBC 10.0(H) 3.8 - 9.9 K/cumm Hgb 11.6(L) 11.9 - 15.5 g/dL [facility] Hct 34.0(L) 35.6 - 45.5 % [facility] Plt 250 150 - 400 K/cumm [facility] MPV 11.0 9.1 - 12.3 fL [facility] RBC 3.92 3.90 - 5.20 M/cumm [facility] MCV 86.7 81.3 - 96.4 fL [facility] MCH 29.6 27.1 - 33.3 pg [facility] MCHC 34.1 32.3 - 35.7 g/dL [facility] RDW CV 13.7 11.1 - 14.9 % [facility] RDW SD 43.1 35.7 - 48.1 fL [facility] NRBC abs 0.00 0.00 - 0.01 K/cumm [facility] Blood 09/18/2024 6:21 AM WINDOWS MOBILE DEVELOPER 09/18/2024 6:32 AM WINDOWS MOBILE DEVELOPER Anastasia Amaro MD LAB BLOOD ORDERABLES Final Result Performing Organization Address City/[facility]/ZIP Co de Phone Number [facility] [place] [address] * Type and screen (09/18/2024 6:21 AM WINDOWS MOBILE DEVELOPER) [facility] Abiodun, indirect Negative ABO Rh O Negative [facility] Blood 09/18/2024 6:21 AM WINDOWS MOBILE DEVELOPER 09/18/2024 6:35 AM WINDOWS MOBILE DEVELOPER Narrative [facility] - 09/18/2024 7:42 AM WINDOWS MOBILE DEVELOPER Has the patient had Daratumumab or Isatuximab in the past 6 months?->Unknown Anastasia Amaro MD LAB BLOOD BANK TEST ORDERA BLES Final Result Performing Organization Address City/[facility]/ZIP Co de Phone Number [facility] [place] [address] * (ABNORMAL) Comprehensive metabolic panel (09/18/2024 6:21 AM WINDOWS MOBILE DEVELOPER) [facility] Sodium 134(L) 135 - 145 mmol/L Potassium, pl 3.8 3.3 - 4.9 mmol/L [facility] Chloride 105 97 - 110 mmol/L [facility] CO2 23 22 - 32 mmol/L [facility] Anion gap 6 2 - 15 mmol/L [facility] BUN 9 6 - 25 mg/dL [facility] Creatinine 0.69 0.60 - 1.10 mg/dL [facility] Glucose 68(L) 70 - 199 mg/dL [facility] Comment: Interpretive Data Fasting glucose >/= [...] 2022. Calcium 9.0 8.5 - 10.3 mg/dL [facility] Bilirubin, total 0.2 0.1 - 1.2 mg/dL [facility] Protein, pl 6.3(L) 6.5 - 8.5 g/dL [facility] Albumin 3.0(L) 3.5 - 5.0 g/dL [facility] Alk phos 125 40 - 130 Units/L [facility] ALT 14 7 - 45 Units/L [facility] AST 16 10 - 45 Units/L [facility] Blood 09/18/2024 6:21 AM WINDOWS MOBILE DEVELOPER 09/18/2024 6:32 AM WINDOWS MOBILE DEVELOPER us Anastasia Amaro MD LAB BLOOD ORDERABLES Final Result [facility] One [facility] [place] [address] * nonstress test (09/17/2024 2:58 PM WINDOWS MOBILE DEVELOPER) Narrative Sandra Christy MD - 09/17/2024 2:58 PM WINDOWS MOBILE DEVELOPER Joellen Schilling MD ? 09/17/2024 ??4:04 PM nonstress test Date/Time: 09/17/2024 2:58 PM Performed by: Maureen Calix MD Authorized by: Ana M Rogers MD ?? us Ana M Rogers MD OB GYNE ORDERABLES Fi nal Result * US Ob Follow Up (09/15/2024 1:08 PM WINDOWS MOBILE DEVELOPER) Fetus# Fetus1 VIEWPOINT Estimated Weight 1,709 g&grams VIEWPOINT Placenta Details anterior VIEWPOINT Presentation Vertex; Maternal right- low VIEWPOINT Fetus# Fetus2 VIEWPOINT Estimated Weight 2,585 g&grams VIEWPOINT Placenta Details anterior VIEWPOINT Presentation Vertex; Maternal left- high VIEWPOINT Anatomical Region Laterality Modality Abdomen N/A Ultrasound 09/15/2024 1:08 PM WINDOWS MOBILE DEVELOPER Impressions 09/15/2024 2:24 PM WINDOWS MOBILE DEVELOPER Diamniotic (presumed MCDA) TIUP at 33w33d who is admitted for preE with severe features who presents for growth US was previously determined to be monochorionic by the [facility] MF practice. A thin dividing membrane and single [...] R esult * eGFR (09/15/2024 6:17 AM WINDOWS MOBILE DEVELOPER) [facility] eGFR >90 >=60 mL/min/1. 73 m2 [...] last reviewed 2021. Blood 09/15/2024 6:17 AM WINDOWS MOBILE DEVELOPER 09/15/2024 6:31 AM WINDOWS MOBILE DEVELOPER us Anastasia Amaro MD LAB BLOOD ORDERABLES Final Result [facility] [place] [address] * (ABNORMAL) CBC without differential (09/15/2024 6:17 AM WINDOWS MOBILE DEVELOPER) WBC 10.1(H) 3.8 - 9.9 K/cumm Hgb 11.7(L) 11.9 - 15.5 g/dL [facility] Hct 34.6(L) 35.6 - 45.5 % [facility] Plt 253 150 - 400 K/cumm [facility] MPV 11.2 9.1 - 12.3 fL [facility] RBC 3.94 3.90 - 5.20 M/cumm [facility] MCV 87.8 81.3 - 96.4 fL [facility] MCH 29.7 27.1 - 33.3 pg [facility] MCHC 33.8 32.3 - 35.7 g/dL [facility] RDW CV 13.8 11.1 - 14.9 % [facility] RDW SD 44.1 35.7 - 48.1 fL [facility] NRBC abs 0.00 0.00 - 0.01 K/cumm [facility] Blood 09/15/2024 6:17 AM WINDOWS MOBILE DEVELOPER 09/15/2024 6:31 AM WINDOWS MOBILE DEVELOPER Anastasia Amaro MD LAB BLOOD ORDERABLES Final Result Performing Organization Address [facility] Co de Phone Number [facility] [place] [address] * Type and screen (09/15/2024 6:17 AM WINDOWS MOBILE DEVELOPER) Pathologist [facility] Abiodun, indirect Negative Comment:Patient has previous antibody history ABO Rh O Negative [facility] Blood 09/15/2024 6:17 AM WINDOWS MOBILE DEVELOPER 09/15/2024 6:30 AM WINDOWS MOBILE DEVELOPER Narrative [facility] - 09/15/2024 7:57 AM WINDOWS MOBILE DEVELOPER Has the patient had Daratumumab or Isatuximab in the past 6 months?->Unknown Anastasia Amaro MD LAB BLOOD BANK TEST ORDERA BLES Final Result Performing Organization Address [facility] de Phone Number [facility] [place] [address] * (ABNORMAL) Comprehensive metabolic panel (09/15/2024 6:17 AM WINDOWS MOBILE DEVELOPER) [facility] Sodium 139 135 - 145 mmol/L Potassium, pl 3.5 3.3 - 4.9 mmol/L [facility] Chloride 106 97 - 110 mmol/L [facility] CO2 21(L) 22 - 32 mmol/L [facility] Anion gap 12 2 - 15 mmol/L [facility] BUN 8 6 - 25 mg/dL [facility] Creatinine 0.66 0.60 - 1.10 mg/dL [facility] Glucose 106 70 - 199 mg/dL [facility] Comment: Interpretive Data Fasting glucose >/= [...] Calcium 9.0 8.5 - 10.3 mg/dL [facility] Bilirubin, total <0.2 0.1 - 1.2 mg/dL [facility] Protein, pl 6.4(L) 6.5 - 8.5 g/dL [facility] Albumin 3.0(L) 3.5 - 5.0 g/dL [facility] Alk phos 124 40 - 130 Units/L [facility] ALT 19 7 - 45 Units/L [facility] AST 20 10 - 45 Units/L [facility] Blood 09/15/2024 6:17 AM WINDOWS MOBILE DEVELOPER 09/15/2024 6:31 AM WINDOWS MOBILE DEVELOPER us Anastasia Amaro MD LAB BLOOD ORDERABLES Final Result [facility] [place] [address] * nonstress test (09/13/2024 5:10 PM WINDOWS MOBILE DEVELOPER) Narrative Sandra Christy MD - 09/13/2024 5:10 PM WINDOWS MOBILE DEVELOPER Anastasia Plaza MD ? 09/13/2024 ??5:21 PM [...] nal Result * eGFR (09/12/2024 6:35 AM WINDOWS MOBILE DEVELOPER) eGFR >90 >=60 mL/min/1. 73 m2 Comment: [...] last reviewed 2021. Blood 09/12/2024 6:35 AM WINDOWS MOBILE DEVELOPER 09/12/2024 6:51 AM WINDOWS MOBILE DEVELOPER Anastasia Amaro MD LAB BLOOD ORDERABLES Final Result [facility] Department [place] [address] * (ABNORMAL) CBC without differential (09/12/2024 6:35 AM WINDOWS MOBILE DEVELOPER) [facility] WBC 10.0(H) 3.8 - 9.9 K/cumm Hgb 11.8(L) 11.9 - 15.5 g/dL [facility] Hct 35.3(L) 35.6 - 45.5 % [facility] Plt 226 150 - 400 K/cumm [facility] MPV 11.2 9.1 - 12.3 fL [facility] RBC 3.97 3.90 - 5.20 M/cumm [facility] MCV 88.9 81.3 - 96.4 fL [facility] MCH 29.7 27.1 - 33.3 pg [facility] MCHC 33.4 32.3 - 35.7 g/dL [facility] RDW CV 13.8 11.1 - 14.9 % [facility] RDW SD 44.5 35.7 - 48.1 fL [facility] NRBC abs 0.02(H) 0.00 - 0.01 K/cumm [facility] Blood 09/12/2024 6:35 AM WINDOWS MOBILE DEVELOPER 09/12/2024 6:52 AM WINDOWS MOBILE DEVELOPER Anastasia Amaro MD LAB BLOOD ORDERABLES Final Result Performing Organization Address [facility] Co de Phone Number [facility] Department [place] [address] * Type and screen (09/12/2024 6:35 AM WINDOWS MOBILE DEVELOPER) Pathologist [facility] ABO Rh O Negative Abiodun, indirect Negative [facility] Comment:Patient has previous antibody history Blood 09/12/2024 6:35 AM WINDOWS MOBILE DEVELOPER 09/12/2024 6:48 AM WINDOWS MOBILE DEVELOPER Narrative [facility] - 09/12/2024 7:49 AM WINDOWS MOBILE DEVELOPER Has the patient had Daratumumab or Isatuximab in the past 6 months?->Unknown us Anastasia Amaro MD LAB BLOOD BANK TEST ORDERA BLES Final Result Performing Organization Address City/[facility] Co de Phone Number [facility] [place] [address] * (ABNORMAL) Comprehensive metabolic panel (09/12/2024 6:35 AM WINDOWS MOBILE DEVELOPER) Sodium 139 135 - 145 mmol/L Potassium, pl 3.8 3.3 - 4.9 mmol/L [facility] Chloride 107 97 - 110 mmol/L [facility] CO2 22 22 - 32 mmol/L [facility] Anion gap 10 2 - 15 mmol/L [facility] BUN 6 6 - 25 mg/dL [facility] Creatinine 0.64 0.60 - 1.10 mg/dL [facility] Glucose 69(L) 70 - 199 mg/dL [facility] Comment: Interpretive Data Fasting glucose >/= [...] 2022. Calcium 8.8 8.5 - 10.3 mg/dL [facility] Bilirubin, total <0.2 0.1 - 1.2 mg/dL [facility] Protein, pl 6.4(L) 6.5 - 8.5 g/dL [facility] Albumin 3.1(L) 3.5 - 5.0 g/dL [facility] Alk phos 122 40 - 130 Units/L [facility] ALT 22 7 - 45 Units/L [facility] AST 23 10 - 45 Units/L [facility] Blood 09/12/2024 6:35 AM WINDOWS MOBILE DEVELOPER 09/12/2024 6:51 AM WINDOWS MOBILE DEVELOPER us Anastasia Amaro MD LAB BLOOD ORDERABLES Final Result [facility] [place] [address] * eGFR (09/09/2024 6:24 AM WINDOWS MOBILE DEVELOPER) Pathologist [facility] eGFR >90 >=60 mL/min/1. 73 m2 Comment: [...] last reviewed 2021. Blood 09/09/2024 6:24 AM WINDOWS MOBILE DEVELOPER 09/09/2024 6:52 AM WINDOWS MOBILE DEVELOPER us Anastasia Amaro MD LAB BLOOD ORDERABLES Final Result [facility] [place] [address] * (ABNORMAL) CBC without differential (09/09/2024 6:24 AM WINDOWS MOBILE DEVELOPER) WBC 8.6 3.8 - 9.9 K/cumm Hgb 10.9(L) 11.9 - 15.5 g/dL [facility] Hct 33.1(L) 35.6 - 45.5 % [facility] Plt 239 150 - 400 K/cumm [facility] MPV 11.0 9.1 - 12.3 fL [facility] RBC 3.77(L) 3.90 - 5.20 M/cumm [facility] MCV 87.8 81.3 - 96.4 fL [facility] MCH 28.9 27.1 - 33.3 pg [facility] MCHC 32.9 32.3 - 35.7 g/dL [facility] RDW CV 13.8 11.1 - 14.9 % [facility] RDW SD 43.8 35.7 - 48.1 fL [facility] NRBC abs 0.00 0.00 - 0.01 K/cumm [facility] Blood 09/09/2024 6:24 AM WINDOWS MOBILE DEVELOPER 09/09/2024 6:52 AM WINDOWS MOBILE DEVELOPER Anastasia Amaro MD LAB BLOOD ORDERABLES Final Result Performing Organization Address [facility] Co de Phone Number [facility] [place] [address] * Type and screen (09/09/2024 6:24 AM WINDOWS MOBILE DEVELOPER) [facility] ABO Rh O Negative Abiodun, indirect Negative [facility] Comment:Patient has previous antibody history Blood 09/09/2024 6:24 AM WINDOWS MOBILE DEVELOPER 09/09/2024 7:19 AM WINDOWS MOBILE DEVELOPER Narrative [facility] - 09/09/2024 8:51 AM WINDOWS MOBILE DEVELOPER Has the patient had Daratumumab or Isatuximab in the past 6 months?->Unknown us Anastasia Amaro MD LAB BLOOD BANK TEST ORDERA BLES Final Result Performing Organization Address City/[facility] Co de Phone Number [facility] [place] [address] * (ABNORMAL) Comprehensive metabolic panel (09/09/2024 6:24 AM WINDOWS MOBILE DEVELOPER) [facility] Sodium 141 135 - 145 mmol/L Potassium, pl 3.8 3.3 - 4.9 mmol/L [facility] Chloride 108 97 - 110 mmol/L [facility] CO2 22 22 - 32 mmol/L [facility] Anion gap 11 2 - 15 mmol/L [facility] BUN 8 6 - 25 mg/dL [facility] Creatinine 0.75 0.60 - 1.10 mg/dL [facility] Glucose 70 70 - 199 mg/dL [facility] Comment: Interpretive Data Fasting glucose >/= [...] 2022. Calcium 8.9 8.5 - 10.3 mg/dL [facility] Bilirubin, total <0.2 0.1 - 1.2 mg/dL [facility] Protein, pl 6.2(L) 6.5 - 8.5 g/dL [facility] Albumin 3.2(L) 3.5 - 5.0 g/dL [facility] Alk phos 117 40 - 130 Units/L [facility] ALT 22 7 - 45 Units/L [facility] AST 23 10 - 45 Units/L [facility] Blood 09/09/2024 6:24 AM WINDOWS MOBILE DEVELOPER 09/09/2024 6:52 AM WINDOWS MOBILE DEVELOPER us Anastasia Amaro MD LAB BLOOD ORDERABLES Final Result [facility] One [facility] [place] [address] * US Ob Limited (09/08/2024 10:29 AM WINDOWS MOBILE DEVELOPER) Fetus# Fetus1 VIEWPOINT Placenta Details anterior VIEWPOINT Presentation Vertex; Maternal right- low VIEWPOINT Fetus# Fetus2 VIEWPOINT Placenta Details anterior VIEWPOINT Presentation Vertex; Maternal left- high (presenting) VIEWPOINT Anatomical Region Laterality Modality Abdomen N/A Ultrasound 09/08/2024 10:2 9 AM WINDOWS MOBILE DEVELOPER Impressions 09/08/2024 11:25 AM WINDOWS MOBILE DEVELOPER 1. Mo/di twin IUP at 32w 3d. [...] esult * nonstress test (09/06/2024 8:38 PM WINDOWS MOBILE DEVELOPER) Narrative Anastasia Amaro MD - 09/06/2024 8:38 PM WINDOWS MOBILE DEVELOPER Pauline Simms MD ? 09/06/2024 ??8:41 PM Baby A FHR Baseline: 125 Variability: moderate Accelerations: absent Decelerations: absent in last part of tracing, was initially having small variable decels in monitoring Reactive: Yes Baby B FHR Baseline: 130 Variability: moderate Accelerations: present Decelerations: absent Reactive: Yes 29 y.o. at 32w1d a/f preeclampsia with SF On monitor [id number] Contractions: absent I have reviewed NST and instructed RN to take off monitor Pauline Simms MD us Ana M Rogers MD OB GYNE ORDERABLES Fi nal Result * eGFR (09/06/2024 4:31 AM WINDOWS MOBILE DEVELOPER) eGFR >90 >=60 mL/min/1. 73 m2 Comment: [...] last reviewed 2021. Blood 09/06/2024 4:31 AM WINDOWS MOBILE DEVELOPER 09/06/2024 4:53 AM WINDOWS MOBILE DEVELOPER us Anastasia Amaro MD LAB BLOOD ORDERABLES Final Result Performing Organization Address City/State/ZIP Co nj Phone Number [facility] One [facility] Department of Laboratories [place], [place] [id number] * (ABNORMAL) CBC without differential (09/06/2024 4:31 AM WINDOWS MOBILE DEVELOPER) Pathologist [facility] WBC 10.3(H) 3.8 - 9.9 K/cumm Hgb 11.7(L) 11.9 - 15.5 g/dL [facility] Hct 34.5(L) 35.6 - 45.5 % [facility] Plt 249 150 - 400 K/cumm [facility] MPV 11.1 9.1 - 12.3 fL [facility] RBC 3.96 3.90 - 5.20 M/cumm [facility] MCV 87.1 81.3 - 96.4 fL [facility] MCH 29.5 27.1 - 33.3 pg [facility] MCHC 33.9 32.3 - 35.7 g/dL [facility] RDW CV 13.6 11.1 - 14.9 % [facility] RDW SD 42.7 35.7 - 48.1 fL [facility] NRBC abs 0.00 0.00 - 0.01 K/cumm [facility] Blood 09/06/2024 4:31 AM WINDOWS MOBILE DEVELOPER 09/06/2024 4:54 AM WINDOWS MOBILE DEVELOPER Anastasia Amaro MD LAB BLOOD ORDERABLES Final Result [facility] [place] [address] * Type and screen (09/06/2024 4:31 AM WINDOWS MOBILE DEVELOPER) Pathologist [facility] ABO Rh O Negative Abiodun, indirect Negative [facility] Comment:Patient has previous antibody history Blood 09/06/2024 4:31 AM WINDOWS MOBILE DEVELOPER 09/06/2024 6:11 AM WINDOWS MOBILE DEVELOPER Narrative [facility] - 09/06/2024 7:16 AM WINDOWS MOBILE DEVELOPER Has the patient had Daratumumab or Isatuximab in the past 6 months?->Unknown Anastasia Amaro MD LAB BLOOD BANK TEST ORDERA BLES Final Result [facility] [place] [address] * (ABNORMAL) Comprehensive metabolic panel (09/06/2024 4:31 AM WINDOWS MOBILE DEVELOPER) Sodium 138 135 - 145 mmol/L Potassium, pl 3.6 3.3 - 4.9 mmol/L [facility] Chloride 105 97 - 110 mmol/L [facility] CO2 24 22 - 32 mmol/L [facility] Anion gap 9 2 - 15 mmol/L [facility] BUN 7 6 - 25 mg/dL [facility] Creatinine 0.63 0.60 - 1.10 mg/dL [facility] Glucose 62(L) 70 - 199 mg/dL [facility] Comment: Interpretive Data Fasting glucose >/= [...] 2022. Calcium 9.3 8.5 - 10.3 mg/dL [facility] Bilirubin, total 0.3 0.1 - 1.2 mg/dL [facility] Protein, pl 6.6 6.5 - 8.5 g/dL [facility] Albumin 3.2(L) 3.5 - 5.0 g/dL [facility] Alk phos 118 40 - 130 Units/L [facility] ALT 23 7 - 45 Units/L [facility] AST 22 10 - 45 Units/L [facility] Blood 09/06/2024 4:31 AM WINDOWS MOBILE DEVELOPER 09/06/2024 4:53 AM WINDOWS MOBILE DEVELOPER us Anastasia Amaro MD LAB BLOOD ORDERABLES Final Result [facility] [place] [address] * Group B streptococcal culture Vaginal/Rectal (09/03/2024 10:29 AM WINDOWS MOBILE DEVELOPER) Report Final Report: Negative Vaginal/Rectal 09/03/2024 10 :29 AM WINDOWS MOBILE DEVELOPER 09/03/2024 10:47 AM WINDOWS MOBILE DEVELOPER Narrative BIA TODD - 09/07/2024 11:05 AM WINDOWS MOBILE DEVELOPER Testing performed by [facility] ([phone]). us Joellen Julio MD LAB MICROBIOLOGY - GENERAL O RDERABLES Final Result Performing Organization Address [facility] Co de Phone Number [facility] [place] [address] * eGFR (09/03/2024 5:26 AM WINDOWS MOBILE DEVELOPER) eGFR >90 >=60 mL/min/1. 73 m2 Comment: [...] last reviewed 2021. Blood 09/03/2024 5:26 AM WINDOWS MOBILE DEVELOPER 09/03/2024 5:39 AM WINDOWS MOBILE DEVELOPER Anastasia Amaro MD LAB BLOOD ORDERABLES Final Result Performing Organization Address City/[facility]/ZIP Co de Phone Number [facility] [place] [address] * (ABNORMAL) CBC without differential (09/03/2024 5:26 AM WINDOWS MOBILE DEVELOPER) WBC 12.1(H) 3.8 - 9.9 K/cumm Hgb 11.7(L) 11.9 - 15.5 g/dL [facility] Hct 34.0(L) 35.6 - 45.5 % [facility] Plt 273 150 - 400 K/cumm [facility] MPV 11.0 9.1 - 12.3 fL [facility] RBC 3.97 3.90 - 5.20 M/cumm [facility] MCV 85.6 81.3 - 96.4 fL [facility] MCH 29.5 27.1 - 33.3 pg [facility] MCHC 34.4 32.3 - 35.7 g/dL [facility] RDW CV 13.3 11.1 - 14.9 % [facility] RDW SD 41.7 35.7 - 48.1 fL [facility] NRBC abs 0.00 0.00 - 0.01 K/cumm [facility] Blood 09/03/2024 5:26 AM WINDOWS MOBILE DEVELOPER 09/03/2024 5:39 AM WINDOWS MOBILE DEVELOPER Anastasia Amaro MD LAB BLOOD ORDERABLES Final Result Performing Organization Address City/[facility]/ZIP Co de Phone Number [facility] [place] [address] * Type and screen (09/03/2024 5:26 AM WINDOWS MOBILE DEVELOPER) Pathologist [facility] Abiodun, indirect Negative Comment:Patient has previous antibody history ABO Rh O Negative [facility] Blood 09/03/2024 5:26 AM WINDOWS MOBILE DEVELOPER 09/03/2024 5:32 AM WINDOWS MOBILE DEVELOPER Narrative [facility] - 09/03/2024 6:27 AM WINDOWS MOBILE DEVELOPER Has the patient had Daratumumab or Isatuximab in the past 6 months?->Unknown Anastasia Amaro MD LAB BLOOD BANK TEST ORDERA BLES Final Result [facility] [place] [address] * (ABNORMAL) Comprehensive metabolic panel (09/03/2024 5:26 AM WINDOWS MOBILE DEVELOPER) Pathologist [facility] Sodium 139 135 - 145 mmol/L Potassium, pl 4.0 3.3 - 4.9 mmol/L [facility] Chloride 105 97 - 110 mmol/L [facility] CO2 20(L) 22 - 32 mmol/L [facility] Anion gap 14 2 - 15 mmol/L [facility] BUN 8 6 - 25 mg/dL [facility] Creatinine 0.55(L) 0.60 - 1.10 mg/dL [facility] Glucose 68(L) 70 - 199 mg/dL [facility] Comment: Interpretive Data Fasting glucose >/= [...] 2022. Calcium 9.3 8.5 - 10.3 mg/dL [facility] Bilirubin, total 0.3 0.1 - 1.2 mg/dL [facility] Protein, pl 6.4(L) 6.5 - 8.5 g/dL [facility] Albumin 3.3(L) 3.5 - 5.0 g/dL [facility] Alk phos 111 40 - 130 Units/L [facility] ALT 22 7 - 45 Units/L [facility] AST 24 10 - 45 Units/L [facility] Blood 09/03/2024 5:26 AM WINDOWS MOBILE DEVELOPER 09/03/2024 5:39 AM WINDOWS MOBILE DEVELOPER us Anastasia Amaro MD LAB BLOOD ORDERABLES Final Result Performing Organization Address City/[facility]/ZIP Co de Phone Number [facility] [place] [address] * ECG 12 lead (09/02/2024 4:33 PM WINDOWS MOBILE DEVELOPER) Pathologist [facility] Ventricular Rate EKG/Min 110 BPM [facility] Atrial Rate 110 BPM [facility] CO-Interval (MSEC) 130 ms [facility] QRS-Interval (MSEC) 82 ms [facility] QT-Interval (MSEC) 340 ms [facility] QTc 460 ms [facility] P [place] 55 degrees [facility] R [place] 22 degrees [facility] T [place] 30 degrees [facility] Diagnosis Sinus tachycardia Otherwise normal ECG No previous ECGs available Confirmed by SAMANTA KAPLAN M.D ([id number]) on 09/06/2024 2:44:26 PM [facility] 09/02/2024 4:33 PM WINDOWS MOBILE DEVELOPER 09/06/2024 2:44 PM WINDOWS MOBILE DEVELOPER us Joellen Julio MD ECG ORDERABLES Final Result [facility] * eGFR (08/31/2024 6:20 AM WINDOWS MOBILE DEVELOPER) eGFR >90 >=60 mL/min/1. 73 m2 Comment: [...] last reviewed 2021. Blood 08/31/2024 6:20 AM WINDOWS MOBILE DEVELOPER 08/31/2024 7:25 AM WINDOWS MOBILE DEVELOPER us Anastasia Amaro MD LAB BLOOD ORDERABLES Final Result [facility] [place] [address] * (ABNORMAL) CBC without differential (08/31/2024 6:20 AM WINDOWS MOBILE DEVELOPER) WBC 10.5(H) 3.8 - 9.9 K/cumm Hgb 11.5(L) 11.9 - 15.5 g/dL [facility] Hct 34.1(L) 35.6 - 45.5 % [facility] Plt 282 150 - 400 K/cumm [facility] MPV 10.9 9.1 - 12.3 fL [facility] RBC 3.93 3.90 - 5.20 M/cumm [facility] MCV 86.8 81.3 - 96.4 fL [facility] MCH 29.3 27.1 - 33.3 pg [facility] MCHC 33.7 32.3 - 35.7 g/dL [facility] RDW CV 13.7 11.1 - 14.9 % [facility] RDW SD 42.6 35.7 - 48.1 fL [facility] NRBC abs 0.00 0.00 - 0.01 K/cumm [facility] Blood 08/31/2024 6:20 AM WINDOWS MOBILE DEVELOPER 08/31/2024 7:25 AM WINDOWS MOBILE DEVELOPER Anastasia Amaro MD LAB BLOOD ORDERABLES Final Result Performing Organization Address [facility] Co de Phone Number [facility] [place] [address] * Type and screen (08/31/2024 6:20 AM WINDOWS MOBILE DEVELOPER) Pathologist [facility] ABO Rh O Negative Abiodun, indirect Negative [facility] Comment:Patient has previous antibody history Blood 08/31/2024 6:20 AM WINDOWS MOBILE DEVELOPER 08/31/2024 7:41 AM WINDOWS MOBILE DEVELOPER Narrative [facility] - 08/31/2024 8:26 AM WINDOWS MOBILE DEVELOPER Has the patient had Daratumumab or Isatuximab in the past 6 months?->Unknown Anastasia Amaro MD LAB BLOOD BANK TEST ORDERA BLES Final Result Performing Organization Address [facility] Co de Phone Number [facility] [place] [address] * (ABNORMAL) Comprehensive metabolic panel (08/31/2024 6:20 AM WINDOWS MOBILE DEVELOPER) Sodium 137 135 - 145 mmol/L Potassium, pl 3.7 3.3 - 4.9 mmol/L [facility] Chloride 103 97 - 110 mmol/L [facility] CO2 22 22 - 32 mmol/L [facility] Anion gap 12 2 - 15 mmol/L [facility] BUN 6 6 - 25 mg/dL [facility] Creatinine 0.56(L) 0.60 - 1.10 mg/dL [facility] Glucose 70 70 - 199 mg/dL [facility] Comment: Interpretive Data Fasting glucose >/= [...] 2022. Calcium 9.5 8.5 - 10.3 mg/dL [facility] Bilirubin, total 0.2 0.1 - 1.2 mg/dL [facility] Protein, pl 6.4(L) 6.5 - 8.5 g/dL [facility] Albumin 3.2(L) 3.5 - 5.0 g/dL [facility] Alk phos 103 40 - 130 Units/L [facility] ALT 28 7 - 45 Units/L [facility] AST 25 10 - 45 Units/L [facility] Blood 08/31/2024 6:20 AM WINDOWS MOBILE DEVELOPER 08/31/2024 7:25 AM WINDOWS MOBILE DEVELOPER us Anastasia Amaro MD LAB BLOOD ORDERABLES Final Result Performing Organization Address City/State/[facility] Co de Phone Number [facility] [place] [address] * nonstress test (08/29/2024 2:32 PM WINDOWS MOBILE DEVELOPER) Narrative Nini Cortez MD - 08/29/2024 2:32 PM WINDOWS MOBILE DEVELOPER Maureen Calix MD ? 08/29/2024 ??3:38 PM nonstress test Date/Time: 08/29/2024 2:32 PM Performed by: Maureen Calix MD Authorized by: Ana M Rogers MD ?? us Ana M Rogers MD OB GYNE ORDERABLES Fi nal Result * nonstress test (08/28/2024 7:47 PM WINDOWS MOBILE DEVELOPER) Narrative Nini Cortez MD - 08/28/2024 7:47 PM WINDOWS MOBILE DEVELOPER Francisca Yun MD ? 08/28/2024 ??7:48 PM A FHR Baseline: 120 Variability: moderate Reactive: Yes Contractions: absent B FHR Baseline: 130 Variability: moderate Reactive: Yes Contractions: absent Comments: No decels x2 I have reviewed NST and instructed RN to take off monitor Fracnisca Yun MD us Ana M Rachel Rogers MD OB GYNE ORDERABLES Fi nal Result * eGFR (08/28/2024 6:00 AM WINDOWS MOBILE DEVELOPER) eGFR >90 >=60 mL/min/1. 73 m2 Comment: [...] last reviewed 2021. Blood 08/28/2024 6:00 AM WINDOWS MOBILE DEVELOPER 08/28/2024 6:13 AM WINDOWS MOBILE DEVELOPER us Anastasia Amaro MD LAB BLOOD ORDERABLES Final Result [facility] [place] [address] * (ABNORMAL) CBC without differential (08/28/2024 6:00 AM WINDOWS MOBILE DEVELOPER) Pathologist [facility] WBC 10.3(H) 3.8 - 9.9 K/cumm Hgb 11.2(L) 11.9 - 15.5 g/dL [facility] Hct 33.0(L) 35.6 - 45.5 % [facility] Plt 289 150 - 400 K/cumm [facility] MPV 10.7 9.1 - 12.3 fL [facility] RBC 3.78(L) 3.90 - 5.20 M/cumm [facility] MCV 87.3 81.3 - 96.4 fL [facility] MCH 29.6 27.1 - 33.3 pg [facility] MCHC 33.9 32.3 - 35.7 g/dL [facility] RDW CV 13.7 11.1 - 14.9 % [facility] RDW SD 43.6 35.7 - 48.1 fL [facility] NRBC abs 0.00 0.00 - 0.01 K/cumm [facility] Blood 08/28/2024 6:00 AM WINDOWS MOBILE DEVELOPER 08/28/2024 6:20 AM WINDOWS MOBILE DEVELOPER us Anastasia Amaro MD LAB BLOOD ORDERABLES Final Result [facility] [place] [address] * Type and screen (08/28/2024 6:00 AM WINDOWS MOBILE DEVELOPER) Pathologist [facility] ABO Rh O Negative Comment:Patient has previous antibody history Abiodun, indirect Negative [facility] Blood 08/28/2024 6:00 AM WINDOWS MOBILE DEVELOPER 08/28/2024 6:54 AM WINDOWS MOBILE DEVELOPER Narrative [facility] - 08/28/2024 7:53 AM WINDOWS MOBILE DEVELOPER Has the patient had Daratumumab or Isatuximab in the past 6 months?->Unknown Anastasia Amaro MD LAB BLOOD BANK TEST ORDERA BLES Final Result [facility] [place] [address] * (ABNORMAL) Comprehensive metabolic panel (08/28/2024 6:00 AM WINDOWS MOBILE DEVELOPER) [facility] Sodium 137 135 - 145 mmol/L Potassium, pl 3.6 3.3 - 4.9 mmol/L [facility] Chloride 105 97 - 110 mmol/L [facility] CO2 21(L) 22 - 32 mmol/L [facility] Anion gap 11 2 - 15 mmol/L [facility] BUN 8 6 - 25 mg/dL [facility] Creatinine 0.52(L) 0.60 - 1.10 mg/dL [facility] Glucose 74 70 - 199 mg/dL [facility] Comment: Interpretive Data Fasting glucose >/= [...] 2022. Calcium 9.3 8.5 - 10.3 mg/dL [facility] Bilirubin, total 0.2 0.1 - 1.2 mg/dL [facility] Protein, pl 6.2(L) 6.5 - 8.5 g/dL [facility] Albumin 3.2(L) 3.5 - 5.0 g/dL [facility] Alk phos 96 40 - 130 Units/L [facility] ALT 25 7 - 45 Units/L [facility] AST 22 10 - 45 Units/L [facility] Blood 08/28/2024 6:00 AM WINDOWS MOBILE DEVELOPER 08/28/2024 6:13 AM WINDOWS MOBILE DEVELOPER us Anastasia Amaro MD LAB BLOOD ORDERABLES Final Result [facility] One [facility] [place] [address] * eGFR (08/25/2024 6:19 AM WINDOWS MOBILE DEVELOPER) eGFR >90 >=60 mL/min/1. 73 m2 Comment: [...] last reviewed 2021. Blood 08/25/2024 6:19 AM WINDOWS MOBILE DEVELOPER 08/25/2024 6:33 AM WINDOWS MOBILE DEVELOPER us Anastasia Amaro MD LAB BLOOD ORDERABLES Final Result Performing Organization Address [facility]/ZIP Co de Phone Number [facility] [place] [address] * (ABNORMAL) CBC without differential (08/25/2024 6:19 AM WINDOWS MOBILE DEVELOPER) Pathologist [facility] WBC 10.5(H) 3.8 - 9.9 K/cumm Hgb 11.4(L) 11.9 - 15.5 g/dL [facility] Hct 33.4(L) 35.6 - 45.5 % [facility] Plt 299 150 - 400 K/cumm [facility] MPV 10.6 9.1 - 12.3 fL [facility] RBC 3.90 3.90 - 5.20 M/cumm [facility] MCV 85.6 81.3 - 96.4 fL [facility] MCH 29.2 27.1 - 33.3 pg [facility] MCHC 34.1 32.3 - 35.7 g/dL [facility] RDW CV 13.4 11.1 - 14.9 % [facility] RDW SD 41.7 35.7 - 48.1 fL [facility] NRBC abs 0.00 0.00 - 0.01 K/cumm [facility] Blood 08/25/2024 6:19 AM WINDOWS MOBILE DEVELOPER 08/25/2024 6:32 AM WINDOWS MOBILE DEVELOPER Anastasia Amaro MD LAB BLOOD ORDERABLES Final Result Performing Organization Address [facility] Co de Phone Number [facility] [place] [address] * Type and screen (08/25/2024 6:19 AM WINDOWS MOBILE DEVELOPER) Pathologist [facility] Abiodun, indirect Negative Comment:Patient has previous antibody history ABO Rh O Negative [facility] Blood 08/25/2024 6:19 AM WINDOWS MOBILE DEVELOPER 08/25/2024 7:06 AM WINDOWS MOBILE DEVELOPER Narrative [facility] - 08/25/2024 8:01 AM WINDOWS MOBILE DEVELOPER Has the patient had Daratumumab or Isatuximab in the past 6 months?->Unknown us Anastasia Amaro MD LAB BLOOD BANK TEST ORDERA BLES Final Result [facility] One [facility] [place] [address] * (ABNORMAL) Comprehensive metabolic panel (08/25/2024 6:19 AM WINDOWS MOBILE DEVELOPER) Pathologist [facility] Sodium 139 135 - 145 mmol/L Potassium, pl 3.5 3.3 - 4.9 mmol/L [facility] Chloride 105 97 - 110 mmol/L [facility] CO2 22 22 - 32 mmol/L [facility] Anion gap 12 2 - 15 mmol/L [facility] BUN 6 6 - 25 mg/dL [facility] Creatinine 0.53(L) 0.60 - 1.10 mg/dL [facility] Glucose 70 70 - 199 mg/dL [facility] Comment: Interpretive Data Fasting glucose >/= [...] Calcium 9.2 8.5 - 10.3 mg/dL [facility] Bilirubin, total 0.2 0.1 - 1.2 mg/dL [facility] Protein, pl 6.4(L) 6.5 - 8.5 g/dL [facility] Albumin 3.2(L) 3.5 - 5.0 g/dL [facility] Alk phos 92 40 - 130 Units/L [facility] ALT 22 7 - 45 Units/L [facility] AST 22 10 - 45 Units/L [facility] Blood 08/25/2024 6:19 AM WINDOWS MOBILE DEVELOPER 08/25/2024 6:33 AM WINDOWS MOBILE DEVELOPER us Anastasia Amaro MD LAB BLOOD ORDERABLES Final Result [facility] [place] [address] * US Ob Follow Up (08/24/2024 9:37 AM WINDOWS MOBILE DEVELOPER) Fetus# Fetus1 VIEWPOINT Estimated Weight 1,348 g&grams VIEWPOINT Placenta Details anterior VIEWPOINT Presentation Vertex; Maternal right- low VIEWPOINT Fetus# Fetus2 VIEWPOINT Estimated Weight 1,784 g&grams VIEWPOINT Placenta Details anterior VIEWPOINT Presentation Vertex; Maternal left- high (presenting) VIEWPOINT Anatomical Region Laterality Modality Abdomen N/A Ultrasound 08/24/2024 9:37 AM WINDOWS MOBILE DEVELOPER Impressions 08/24/2024 2:06 PM WINDOWS MOBILE DEVELOPER 1. Presumed Mo/Di twin IUP at 30w [...] Edite d * eGFR (08/22/2024 6:02 AM WINDOWS MOBILE DEVELOPER) eGFR >90 >=60 mL/min/1. 73 m2 Comment: [...] last reviewed 2021. Blood 08/22/2024 6:02 AM WINDOWS MOBILE DEVELOPER 08/22/2024 6:18 AM WINDOWS MOBILE DEVELOPER Anastasia Amaro MD LAB BLOOD ORDERABLES Final Result Performing Organization Address City/[facility] Co de Phone Number [facility] [place] [address] * (ABNORMAL) CBC without differential (08/22/2024 6:02 AM WINDOWS MOBILE DEVELOPER) WBC 12.2(H) 3.8 - 9.9 K/cumm Hgb 11.8(L) 11.9 - 15.5 g/dL [facility] Hct 34.4(L) 35.6 - 45.5 % [facility] Plt 277 150 - 400 K/cumm [facility] MPV 10.4 9.1 - 12.3 fL [facility] RBC 4.02 3.90 - 5.20 M/cumm [facility] MCV 85.6 81.3 - 96.4 fL [facility] MCH 29.4 27.1 - 33.3 pg [facility] MCHC 34.3 32.3 - 35.7 g/dL [facility] RDW CV 13.6 11.1 - 14.9 % [facility] RDW SD 42.4 35.7 - 48.1 fL [facility] NRBC abs 0.00 0.00 - 0.01 K/cumm [facility] Blood 08/22/2024 6:02 AM WINDOWS MOBILE DEVELOPER 08/22/2024 6:18 AM WINDOWS MOBILE DEVELOPER Anastasia Amaro MD LAB BLOOD ORDERABLES Final Result Performing Organization Address City/[facility]/ZIP Co de Phone Number [facility] [place] [address] * Type and screen (08/22/2024 6:02 AM WINDOWS MOBILE DEVELOPER) Abiodun, indirect Negative Comment:Patient has previous antibody history ABO Rh O Negative [facility] Blood 08/22/2024 6:02 AM WINDOWS MOBILE DEVELOPER 08/22/2024 6:24 AM WINDOWS MOBILE DEVELOPER Narrative [facility] - 08/22/2024 7:25 AM WINDOWS MOBILE DEVELOPER Has the patient had Daratumumab or Isatuximab in the past 6 months?->Unknown Anastasia Amaro MD LAB BLOOD BANK TEST ORDERA BLES Final Result [facility] One [facility] [place] [address] * (ABNORMAL) Comprehensive metabolic panel (08/22/2024 6:02 AM WINDOWS MOBILE DEVELOPER) Pathologist [facility] Sodium 138 135 - 145 mmol/L Potassium, pl 3.7 3.3 - 4.9 mmol/L [facility] Chloride 104 97 - 110 mmol/L [facility] CO2 23 22 - 32 mmol/L [facility] Anion gap 11 2 - 15 mmol/L [facility] BUN 7 6 - 25 mg/dL [facility] Creatinine 0.53(L) 0.60 - 1.10 mg/dL [facility] Glucose 72 70 - 199 mg/dL [facility] Comment: Interpretive Data Fasting glucose >/= [...] 2022. Calcium 9.3 8.5 - 10.3 mg/dL [facility] Bilirubin, total 0.2 0.1 - 1.2 mg/dL [facility] Protein, pl 6.6 6.5 - 8.5 g/dL [facility] Albumin 3.2(L) 3.5 - 5.0 g/dL [facility] Alk phos 90 40 - 130 Units/L [facility] ALT 19 7 - 45 Units/L [facility] AST 18 10 - 45 Units/L [facility] Blood 08/22/2024 6:02 AM WINDOWS MOBILE DEVELOPER 08/22/2024 6:18 AM WINDOWS MOBILE DEVELOPER us Anastasia Amaro MD LAB BLOOD ORDERABLES Final Result [facility] One [facility] [place] [address] * eGFR (08/19/2024 6:25 AM WINDOWS MOBILE DEVELOPER) eGFR >90 >=60 mL/min/1. 73 m2 Comment: [...] last reviewed 2021. Blood 08/19/2024 6:25 AM WINDOWS MOBILE DEVELOPER 08/19/2024 7:23 AM WINDOWS MOBILE DEVELOPER Anastasia Amaro MD LAB BLOOD ORDERABLES Final Result Performing Organization Address [facility] Co de Phone Number [facility] [place] [address] * (ABNORMAL) CBC without differential (08/19/2024 6:25 AM WINDOWS MOBILE DEVELOPER) Pathologist [facility] WBC 11.2(H) 3.8 - 9.9 K/cumm Hgb 11.3(L) 11.9 - 15.5 g/dL [facility] Hct 33.9(L) 35.6 - 45.5 % [facility] Plt 249 150 - 400 K/cumm [facility] MPV 10.6 9.1 - 12.3 fL [facility] RBC 3.89(L) 3.90 - 5.20 M/cumm [facility] MCV 87.1 81.3 - 96.4 fL [facility] MCH 29.0 27.1 - 33.3 pg [facility] MCHC 33.3 32.3 - 35.7 g/dL [facility] RDW CV 13.4 11.1 - 14.9 % [facility] RDW SD 42.5 35.7 - 48.1 fL [facility] NRBC abs 0.00 0.00 - 0.01 K/cumm [facility] Blood 08/19/2024 6:25 AM WINDOWS MOBILE DEVELOPER 08/19/2024 7:23 AM WINDOWS MOBILE DEVELOPER Anastasia Amaro MD LAB BLOOD ORDERABLES Final Result [facility] [place] [address] * Type and screen (08/19/2024 6:25 AM WINDOWS MOBILE DEVELOPER) Pathologist [facility] Abiodun, indirect Negative ABO Rh O Negative [facility] Comment:Patient has previous antibody history Blood 08/19/2024 6:25 AM WINDOWS MOBILE DEVELOPER 08/19/2024 7:31 AM WINDOWS MOBILE DEVELOPER Narrative [facility] - 08/19/2024 8:22 AM WINDOWS MOBILE DEVELOPER Has the patient had Daratumumab or Isatuximab in the past 6 months?->Unknown us Anastasia Amaro MD LAB BLOOD BANK TEST ORDERA BLES Final Result [facility] One [facility] [place] [address] * (ABNORMAL) Comprehensive metabolic panel (08/19/2024 6:25 AM WINDOWS MOBILE DEVELOPER) Sodium 138 135 - 145 mmol/L Potassium, pl 3.7 3.3 - 4.9 mmol/L [facility] Chloride 105 97 - 110 mmol/L [facility] CO2 23 22 - 32 mmol/L [facility] Anion gap 10 2 - 15 mmol/L [facility] BUN 7 6 - 25 mg/dL [facility] Creatinine 0.54(L) 0.60 - 1.10 mg/dL [facility] Glucose 68(L) 70 - 199 mg/dL [facility] Comment: Interpretive Data Fasting glucose >/= [...] 2022. Calcium 9.3 8.5 - 10.3 mg/dL [facility] Bilirubin, total 0.2 0.1 - 1.2 mg/dL [facility] Protein, pl 6.3(L) 6.5 - 8.5 g/dL [facility] Albumin 3.0(L) 3.5 - 5.0 g/dL [facility] Alk phos 88 40 - 130 Units/L [facility] ALT 13 7 - 45 Units/L [facility] AST 18 10 - 45 Units/L [facility] Blood 08/19/2024 6:25 AM WINDOWS MOBILE DEVELOPER 08/19/2024 7:23 AM WINDOWS MOBILE DEVELOPER us Anastasia Amaro MD LAB BLOOD ORDERABLES Final Result [facility] One [facility] [place] [address] * US Ob Limited (08/16/2024 8:35 AM WINDOWS MOBILE DEVELOPER) Fetus# Fetus1 VIEWPOINT Placenta Details anterior VIEWPOINT Presentation Transverse, maternal right-low VIEWPOINT Fetus# Fetus2 VIEWPOINT Placenta Details anterior VIEWPOINT Presentation Vertex; Maternal left- high VIEWPOINT Anatomical Region Laterality Modality Abdomen N/A Ultrasound 08/16/2024 8:36 AM WINDOWS MOBILE DEVELOPER Impressions 08/16/2024 2:23 PM WINDOWS MOBILE DEVELOPER Diamniotic (presumed MCDA) TIUP at 29w1d who is admitted for preE with severe features who presents for ??TTTS screen.Chorionicity was not fully assessed but [facility] Anatomic surveys were also completed there. [...] Result * Antibody identification (08/16/2024 7:34 AM WINDOWS MOBILE DEVELOPER) Pathologist [facility] Antibody ID 1 Passive Anti-D Blood 08/16/2024 7:34 AM WINDOWS MOBILE DEVELOPER 08/16/2024 7:34 AM WINDOWS MOBILE DEVELOPER us Anastasia Amaro MD LAB BLOOD BANK TEST ORDERA BLES Final Result Performing Organization Address City/State/ZIP Co nj Phone Number [facility] One [facility] [place] [address] * eGFR (08/16/2024 6:15 AM WINDOWS MOBILE DEVELOPER) Pathologist [facility] eGFR >90 >=60 mL/min/1. 73 m2 Comment: [...] last reviewed 2021. Blood 08/16/2024 6:15 AM WINDOWS MOBILE DEVELOPER 08/16/2024 6:29 AM WINDOWS MOBILE DEVELOPER Anastasia Amaro MD LAB BLOOD ORDERABLES Final Result [facility] [place] [address] * Thyroid Function [place] (08/16/2024 6:15 AM WINDOWS MOBILE DEVELOPER) Pathologist [facility] TSH 3.83 0.30 - 4.20 mcIUnit/mL Blood 08/16/2024 6:15 AM WINDOWS MOBILE DEVELOPER 08/16/2024 6:29 AM WINDOWS MOBILE DEVELOPER Anastasia Amaro MD LAB BLOOD ORDERABLES Final Result Performing Organization Address City/[facility] Co de Phone Number [facility] [place] [address] * (ABNORMAL) CBC without differential (08/16/2024 6:15 AM WINDOWS MOBILE DEVELOPER) Pathologist [facility] WBC 10.9(H) 3.8 - 9.9 K/cumm Hgb 11.6(L) 11.9 - 15.5 g/dL [facility] Hct 34.0(L) 35.6 - 45.5 % [facility] Plt 257 150 - 400 K/cumm [facility] MPV 10.4 9.1 - 12.3 fL [facility] RBC 3.95 3.90 - 5.20 M/cumm [facility] MCV 86.1 81.3 - 96.4 fL [facility] MCH 29.4 27.1 - 33.3 pg [facility] MCHC 34.1 32.3 - 35.7 g/dL [facility] RDW CV 13.3 11.1 - 14.9 % [facility] RDW SD 41.5 35.7 - 48.1 fL [facility] NRBC abs 0.00 0.00 - 0.01 K/cumm [facility] Blood 08/16/2024 6:15 AM WINDOWS MOBILE DEVELOPER 08/16/2024 6:30 AM WINDOWS MOBILE DEVELOPER Anastasia Amaro MD LAB BLOOD ORDERABLES Final Result Performing Organization Address [facility] Co de Phone Number [facility] [place] [address] * (ABNORMAL) Type and screen (08/16/2024 6:15 AM WINDOWS MOBILE DEVELOPER) [facility] Abiodun, indirect Positive(A) ABO Rh O Negative [facility] Blood 08/16/2024 6:15 AM WINDOWS MOBILE DEVELOPER 08/16/2024 6:25 AM WINDOWS MOBILE DEVELOPER Narrative [facility] - 08/16/2024 7:34 AM WINDOWS MOBILE DEVELOPER Has the patient had Daratumumab or Isatuximab in the past 6 months?->Unknown Anastasia Amaro MD LAB BLOOD BANK TEST ORDERA BLES Final Result Performing Organization Address [facility] Co de Phone Number [facility] [place] [address] * (ABNORMAL) Comprehensive metabolic panel (08/16/2024 6:15 AM WINDOWS MOBILE DEVELOPER) [facility] Sodium 139 135 - 145 mmol/L Potassium, pl 3.4 3.3 - 4.9 mmol/L [facility] Chloride 105 97 - 110 mmol/L [facility] CO2 23 22 - 32 mmol/L [facility] Anion gap 11 2 - 15 mmol/L [facility] BUN 8 6 - 25 mg/dL [facility] Creatinine 0.51(L) 0.60 - 1.10 mg/dL [facility] Glucose 72 70 - 199 mg/dL [facility] Comment: Interpretive Data Fasting glucose >/= [...] 2022. Calcium 9.2 8.5 - 10.3 mg/dL [facility] Bilirubin, total 0.2 0.1 - 1.2 mg/dL [facility] Protein, pl 6.4(L) 6.5 - 8.5 g/dL [facility] Albumin 3.2(L) 3.5 - 5.0 g/dL [facility] Alk phos 86 40 - 130 Units/L [facility] ALT 16 7 - 45 Units/L [facility] AST 16 10 - 45 Units/L [facility] Blood 08/16/2024 6:15 AM WINDOWS MOBILE DEVELOPER 08/16/2024 6:29 AM WINDOWS MOBILE DEVELOPER us Anastasia Amaro MD LAB BLOOD ORDERABLES Final Result [facility] [place] [address] * POCT glucose (08/14/2024 3:06 PM WINDOWS MOBILE DEVELOPER) [facility] Signature Glucose, POC 103 70 - 199 mg/dL Comment:Post Meal Glucose comment 1 Post Meal [facility] Blood 08/14/2024 3:06 PM WINDOWS MOBILE DEVELOPER 08/14/2024 3:06 PM WINDOWS MOBILE DEVELOPER Anastasia Amaro MD LAB POCT ORDERABLES - JELENA CE Final Result [facility] [place] [address] * ECG 12 lead (08/13/2024 9:02 AM WINDOWS MOBILE DEVELOPER) [facility] Ventricular Rate EKG/Min 122 BPM [facility] Atrial Rate 122 BPM [facility] CO-Interval (MSEC) 132 ms [facility] QRS-Interval (MSEC) 80 ms [facility] QT-Interval (MSEC) 324 ms [facility] QTc 461 ms [facility] P [place] 49 degrees [facility] R [place] 18 degrees [facility] T [place] 29 degrees [facility] Diagnosis Sinus tachycardia Otherwise normal ECG When compared with ECG of 04-AUG-2024 17:45, No significant change was found Confirmed by SAMANTA KAPLAN M.D ([id number]) on 08/15/2024 12:21:02 PM [facility] 08/13/2024 9:02 AM WINDOWS MOBILE DEVELOPER 08/15/2024 12:21 PM WINDOWS MOBILE DEVELOPER us Anastasia Amaro MD ECG ORDERABLES Final Resu lt Performing Organization Address City/[facility] Co de Phone Number [facility] * Antibody identification (08/13/2024 7:42 AM WINDOWS MOBILE DEVELOPER) [facility] Antibody ID 1 Passive Anti-D Blood 08/13/2024 7:42 AM WINDOWS MOBILE DEVELOPER 08/13/2024 7:42 AM WINDOWS MOBILE DEVELOPER us Anastasia Amaro MD LAB BLOOD BANK TEST ORDERA BLES Final Result Performing Organization Address [facility] Co de Phone Number [facility] [place] [address] * eGFR (08/13/2024 5:44 AM WINDOWS MOBILE DEVELOPER) [facility] eGFR >90 >=60 mL/min/1. 73 m2 [...] last reviewed 2021. Blood 08/13/2024 5:44 AM WINDOWS MOBILE DEVELOPER 08/13/2024 6:05 AM WINDOWS MOBILE DEVELOPER us Anastasia Amaro MD LAB BLOOD ORDERABLES Final Result [facility] [place] [address] * HIV 1/2 Antibody plus p24 Antigen Blood (08/13/2024 5:44 AM WINDOWS MOBILE DEVELOPER) Pathologist [facility] HIV 1/2 ab + p24 ag Nonreactive Nonreactive Comment:Nonreactive for HIV- 1 antigen and HIV-1/HIV-2 antibodies. No laboratory evidence of HIV infection. If acute HIV infection is suspected, consider testing for HIV-1 RNA. Current interpretive data was last revised on 22. Blood 08/13/2024 5:44 AM WINDOWS MOBILE DEVELOPER 08/13/2024 6:05 AM WINDOWS MOBILE DEVELOPER us Anastasia Amaro MD LAB MICROBIOLOGY - GENERAL ORDERABLES Final Result Performing Organization Address [facility] de Phone Number [facility] [place] [address] * RPR Blood (08/13/2024 5:44 AM WINDOWS MOBILE DEVELOPER) Pathologist [facility] RPR Nonreactive Nonreactive Blood 08/13/2024 5:44 AM WINDOWS MOBILE DEVELOPER 08/13/2024 6:05 AM WINDOWS MOBILE DEVELOPER us Anastasia Amaro MD LAB MICROBIOLOGY - GENERAL ORDERABLES Final Result Performing Organization Address [facility] [place] [address] * (ABNORMAL) CBC without differential (08/13/2024 5:44 AM WINDOWS MOBILE DEVELOPER) [facility] WBC 12.4(H) 3.8 - 9.9 K/cumm Hgb 11.8(L) 11.9 - 15.5 g/dL [facility] Hct 34.4(L) 35.6 - 45.5 % [facility] Plt 295 150 - 400 K/cumm [facility] MPV 10.3 9.1 - 12.3 fL [facility] RBC 3.93 3.90 - 5.20 M/cumm [facility] MCV 87.5 81.3 - 96.4 fL [facility] MCH 30.0 27.1 - 33.3 pg [facility] MCHC 34.3 32.3 - 35.7 g/dL [facility] RDW CV 13.6 11.1 - 14.9 % [facility] RDW SD 43.5 35.7 - 48.1 fL [facility] NRBC abs 0.00 0.00 - 0.01 K/cumm [facility] Blood 08/13/2024 5:44 AM WINDOWS MOBILE DEVELOPER 08/13/2024 6:05 AM WINDOWS MOBILE DEVELOPER Anastasia Amaro MD LAB BLOOD ORDERABLES Final Result Performing Organization Address [facility] Co de Phone Number [facility] [place] [address] * (ABNORMAL) Type and screen (08/13/2024 5:44 AM WINDOWS MOBILE DEVELOPER) ABO Rh O Negative Abiodun, indirect Positive(A) [facility] Blood 08/13/2024 5:44 AM WINDOWS MOBILE DEVELOPER 08/13/2024 6:19 AM WINDOWS MOBILE DEVELOPER Narrative [facility] - 08/13/2024 7:42 AM WINDOWS MOBILE DEVELOPER Has the patient had Daratumumab or Isatuximab in the past 6 months?->Unknown Anastasia Amaro MD LAB BLOOD BANK TEST ORDERA BLES Final Result Performing Organization Address [facility] de Phone Number [facility] [place] [address] * (ABNORMAL) Comprehensive metabolic panel (08/13/2024 5:44 AM WINDOWS MOBILE DEVELOPER) Pathologist [facility] Sodium 137 135 - 145 mmol/L Potassium, pl 3.7 3.3 - 4.9 mmol/L [facility] Chloride 104 97 - 110 mmol/L [facility] CO2 22 22 - 32 mmol/L [facility] Anion gap 11 2 - 15 mmol/L [facility] BUN 8 6 - 25 mg/dL [facility] Creatinine 0.49(L) 0.60 - 1.10 mg/dL [facility] Glucose 74 70 - 199 mg/dL [facility] Comment: Interpretive Data Fasting glucose >/= [...] Calcium 9.4 8.5 - 10.3 mg/dL [facility] Bilirubin, total 0.3 0.1 - 1.2 mg/dL [facility] Protein, pl 6.5 6.5 - 8.5 g/dL [facility] Albumin 3.3(L) 3.5 - 5.0 g/dL [facility] Alk phos 85 40 - 130 Units/L [facility] ALT 21 7 - 45 Units/L [facility] AST 19 10 - 45 Units/L [facility] Blood 08/13/2024 5:44 AM WINDOWS MOBILE DEVELOPER 08/13/2024 6:05 AM WINDOWS MOBILE DEVELOPER Anastasia Amaro MD LAB BLOOD ORDERABLES Final Result Performing Organization Address [facility] Co de Phone Number [facility] [place] [address] * GTT 50gm 1hr gestational screen (08/12/2024 11:29 AM WINDOWS MOBILE DEVELOPER) GTT 50g gest screen 106 <=140 mg/dL [...] on 2020. Blood 08/12/2024 11:2 9 AM WINDOWS MOBILE DEVELOPER 08/12/2024 11:41 AM WINDOWS MOBILE DEVELOPER Anastasia Amaro MD LAB BLOOD ORDERABLES Final Result Performing Organization Address [facility] Co de Phone Number [facility] Department [place] [address] * Antibody identification (08/10/2024 7:02 AM WINDOWS MOBILE DEVELOPER) Pathologist [facility] Antibody ID 1 Passive Anti-D Blood 08/10/2024 7:02 AM WINDOWS MOBILE DEVELOPER 08/10/2024 7:02 AM WINDOWS MOBILE DEVELOPER us Anastasia Amaro MD LAB BLOOD BANK TEST ORDERA BLES Final Result Performing Organization Address City/State/[facility] Co [place] Phone Number BIA [facility] One [facility] [place] [address] * eGFR (08/10/2024 4:49 AM WINDOWS MOBILE DEVELOPER) [facility] eGFR >90 >=60 mL/min/1. 73 m2 [...] last reviewed 2021. Blood 08/10/2024 4:49 AM WINDOWS MOBILE DEVELOPER 08/10/2024 5:31 AM WINDOWS MOBILE DEVELOPER us Anastasia Amaro MD LAB BLOOD ORDERABLES Final Result Performing Organization Address [facility]/ZIP Co de Phone Number [facility] [place] [address] * (ABNORMAL) CBC without differential (08/10/2024 4:49 AM WINDOWS MOBILE DEVELOPER) Pathologist [facility] WBC 11.7(H) 3.8 - 9.9 K/cumm Hgb 11.7(L) 11.9 - 15.5 g/dL [facility] Hct 35.0(L) 35.6 - 45.5 % [facility] Plt 293 150 - 400 K/cumm [facility] MPV 10.5 9.1 - 12.3 fL [facility] RBC 4.00 3.90 - 5.20 M/cumm [facility] MCV 87.5 81.3 - 96.4 fL [facility] MCH 29.3 27.1 - 33.3 pg [facility] MCHC 33.4 32.3 - 35.7 g/dL [facility] RDW CV 13.7 11.1 - 14.9 % [facility] RDW SD 43.8 35.7 - 48.1 fL [facility] NRBC abs 0.00 0.00 - 0.01 K/cumm [facility] Blood 08/10/2024 4:49 AM WINDOWS MOBILE DEVELOPER 08/10/2024 5:42 AM WINDOWS MOBILE DEVELOPER Anastasia Amaro MD LAB BLOOD ORDERABLES Final Result Performing Organization Address [facility] Co de Phone Number [facility] [place] [address] * (ABNORMAL) Type and screen (08/10/2024 4:49 AM WINDOWS MOBILE DEVELOPER) Pathologist [facility] Abiodun, indirect Positive(A) ABO Rh O Negative [facility] Blood 08/10/2024 4:49 AM WINDOWS MOBILE DEVELOPER 08/10/2024 6:04 AM WINDOWS MOBILE DEVELOPER Narrative [facility] - 08/10/2024 7:02 AM WINDOWS MOBILE DEVELOPER Has the patient had Daratumumab or Isatuximab in the past 6 months?->Unknown us Anastasia Amaro MD LAB BLOOD BANK TEST ORDERA BLES Final Result [facility] One [facility] [place] [address] * (ABNORMAL) Comprehensive metabolic panel (08/10/2024 4:49 AM WINDOWS MOBILE DEVELOPER) Sodium 135 135 - 145 mmol/L Potassium, pl 3.5 3.3 - 4.9 mmol/L [facility] Chloride 102 97 - 110 mmol/L [facility] CO2 22 22 - 32 mmol/L [facility] Anion gap 11 2 - 15 mmol/L [facility] BUN 9 6 - 25 mg/dL [facility] Creatinine 0.51(L) 0.60 - 1.10 mg/dL [facility] Glucose 79 70 - 199 mg/dL [facility] Comment: Interpretive Data Fasting glucose >/= [...] 2022. Calcium 9.2 8.5 - 10.3 mg/dL [facility] Bilirubin, total 0.2 0.1 - 1.2 mg/dL [facility] Protein, pl 6.6 6.5 - 8.5 g/dL [facility] Albumin 3.2(L) 3.5 - 5.0 g/dL [facility] Alk phos 85 40 - 130 Units/L [facility] ALT 22 7 - 45 Units/L [facility] AST 19 10 - 45 Units/L [facility] Blood 08/10/2024 4:49 AM WINDOWS MOBILE DEVELOPER 08/10/2024 5:31 AM WINDOWS MOBILE DEVELOPER us Anastasia Amaro MD LAB BLOOD ORDERABLES Final Result [facility] [place] [address] * US Ob 14 Weeks Or Over (08/09/2024 9:47 AM WINDOWS MOBILE DEVELOPER) Fetus# Fetus1 VIEWPOINT Placenta Details anterior VIEWPOINT Presentation Vertex; Maternal right- low VIEWPOINT Fetus# Fetus2 VIEWPOINT Placenta Details anterior VIEWPOINT Presentation Vertex; Maternal left- high VIEWPOINT Anatomical Region Laterality Modality Abdomen N/A Ultrasound 08/09/2024 9:50 AM WINDOWS MOBILE DEVELOPER Impressions 08/09/2024 11:52 AM WINDOWS MOBILE DEVELOPER 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 Chorionicity was not fully assessed but was previously determined to be monochorionic by the [facility] practice. Anatomic surveys were also completed [...] waspreviously determined to be monochorionic by the [facility] practice.Anatomic surveys were also completed there. [...] Result * Antibody identification (08/07/2024 6:51 AM WINDOWS MOBILE DEVELOPER) Pathologist [facility] Antibody ID 1 Passive Anti-D Blood 08/07/2024 6:51 AM WINDOWS MOBILE DEVELOPER 08/07/2024 6:51 AM WINDOWS MOBILE DEVELOPER us Anastasia Amaro MD LAB BLOOD BANK TEST ORDERA BLES Final Result [facility] One [facility] [place] [address] * eGFR (08/07/2024 5:00 AM WINDOWS MOBILE DEVELOPER) eGFR >90 >=60 mL/min/1. 73 m2 Comment: [...] last reviewed 2021. Blood 08/07/2024 5:00 AM WINDOWS MOBILE DEVELOPER 08/07/2024 4:56 AM WINDOWS MOBILE DEVELOPER us Anastasia Amaro MD LAB BLOOD ORDERABLES Final Result [facility] One [facility] [place] [address] * (ABNORMAL) CBC without differential (08/07/2024 5:00 AM WINDOWS MOBILE DEVELOPER) WBC 10.2(H) 3.8 - 9.9 K/cumm Hgb 12.0 11.9 - 15.5 g/dL [facility] Hct 35.0(L) 35.6 - 45.5 % [facility] Plt 261 150 - 400 K/cumm [facility] MPV 10.2 9.1 - 12.3 fL [facility] RBC 4.02 3.90 - 5.20 M/cumm [facility] MCV 87.1 81.3 - 96.4 fL [facility] MCH 29.9 27.1 - 33.3 pg [facility] MCHC 34.3 32.3 - 35.7 g/dL [facility] RDW CV 13.8 11.1 - 14.9 % [facility] RDW SD 44.4 35.7 - 48.1 fL [facility] NRBC abs 0.00 0.00 - 0.01 K/cumm [facility] Blood 08/07/2024 5:00 AM WINDOWS MOBILE DEVELOPER 08/07/2024 4:56 AM WINDOWS MOBILE DEVELOPER us Anastasia Amaro MD LAB BLOOD ORDERABLES Final Result [facility] One [facility] [place] [address] * (ABNORMAL) Comprehensive metabolic panel (08/07/2024 5:00 AM WINDOWS MOBILE DEVELOPER) [facility] Sodium 138 135 - 145 mmol/L Potassium, pl 3.6 3.3 - 4.9 mmol/L [facility] Chloride 105 97 - 110 mmol/L [facility] CO2 22 22 - 32 mmol/L [facility] Anion gap 11 2 - 15 mmol/L [facility] BUN 7 6 - 25 mg/dL [facility] Creatinine 0.47(L) 0.60 - 1.10 mg/dL [facility] Glucose 84 70 - 199 mg/dL [facility] Comment: Interpretive Data Fasting glucose >/= [...] 2022. Calcium 9.3 8.5 - 10.3 mg/dL [facility] Bilirubin, total 0.2 0.1 - 1.2 mg/dL [facility] Protein, pl 6.3(L) 6.5 - 8.5 g/dL [facility] Albumin 3.1(L) 3.5 - 5.0 g/dL [facility] Alk phos 80 40 - 130 Units/L [facility] ALT 26 7 - 45 Units/L [facility] AST 16 10 - 45 Units/L [facility] Blood 08/07/2024 5:00 AM WINDOWS MOBILE DEVELOPER 08/07/2024 4:56 AM WINDOWS MOBILE DEVELOPER Anastasia Amaro MD LAB BLOOD ORDERABLES Final Result Performing Organization Address [facility] [place] [address] * (ABNORMAL) Type and screen (08/07/2024 4:45 AM WINDOWS MOBILE DEVELOPER) Abiodun, indirect Positive(A) ABO Rh O Negative [facility] Blood 08/07/2024 4:45 AM WINDOWS MOBILE DEVELOPER 08/07/2024 5:12 AM WINDOWS MOBILE DEVELOPER Narrative [facility] - 08/07/2024 6:51 AM WINDOWS MOBILE DEVELOPER Has the patient had Daratumumab or Isatuximab in the past 6 months?->Unknown Anastasia Amaro MD LAB BLOOD BANK TEST ORDERA BLES Final Result Performing Organization Address [facility] de Phone Number [facility] [place] [address] * CT Chest PE (CTA) W Contrast [...] panel Nasopharyngeal (08/04/2024 6:28 PM CDT) Pathologist [facility] Influenza A RNA Not Detected Not Detected Influenza B RNA Not Detected Not Detected [facility] RSV RNA Not Detected Not Detected [facility] COVID-19 RNA Not Detected Not Detected [facility] Coronavirus 229E RNA Not Detected Not Detected [facility] Coronavirus HKU1 RNA Not Detected Not Detected [facility] Coronavirus NL63 RNA Not Detected Not Detected [facility] Coronavirus OC43 RNA Not Detected Not Detected [facility] Adenovirus DNA Not Detected Not Detected [facility] Metapneumovirus RNA Not Detected Not Detected [facility] Rhinovirus/Enterov irus RNA Not Detected Not Detected [facility] Parainfluenza 1 RNA Not Detected Not Detected [facility] Parainfluenza 2 RNA Not Detected Not Detected [facility] Parainfluenza 3 RNA Not Detected Not Detected [facility] Parainfluenza 4 RNA Not Detected Not Detected [facility] B. pertussis DNA Not Detected Not Detected [facility] B. parapertussis DNA Not Detected Not Detected [facility] C. pneumoniae DNA Not Detected Not Detected [facility] M. pneumoniae DNA Not Detected Not Detected [facility] Nasopharyngeal 08/04/2024 6: 28 PM CDT 08/04/2024 6:48 PM CDT Narrative [facility] - 08/04/2024 8:16 PM CDT Is the Patient experiencing symptoms consistent with COVID?->No Surveillance testing for transplant patient?->No ??Interpretive Data The [employer] FilmArray Respiratory Panel (RP2.1) assay is a [...] assay has FDA clearance for testing of PAINTING WORKER swabs. ??The performance of additional specimen types has been assessed by the performing laboratory. ??The performance characteristics of this assay have been determined by [facility] Infectious Disease Laboratory. Current interpretive data was last revised on 22. us Anastasia Amaro MD LAB MICROBIOLOGY - GENERAL ORDERABLES Final Result Performing Organization Address [facility] Co de Phone Number BIA [facility] [place] [address] * (ABNORMAL) D-dimer, quantitative (08/04/2024 6:28 PM [...] 68, VTE cut-off 680 ng/ml FEU. References; Schoutalanna HT et al. Brit Med J. 2013;346:f2492. Festus et al. Annals Int Med. 2015;163:701-11. Current interpretive data was last revised on 2019. Blood 08/04/2024 6:28 PM CDT 08/04/2024 6:55 PM CDT Anastasia Amaro MD LAB BLOOD ORDERABLES Final Result Performing Organization Address [facility] de Phone Number BIA [facility] [place] [address] * ECG 12 lead (08/04/2024 5:45 PM CDT) Ventricular Rate EKG/Min 131 BPM [facility] Atrial Rate 131 BPM [facility] CO-Interval (MSEC) 126 ms [facility] QRS-Interval (MSEC) 74 ms [facility] QT-Interval (MSEC) 300 ms [facility] QTc 443 ms [facility] P Santa 53 degrees [facility] R [place] 8 degrees [facility] T [place] 33 degrees [facility] Diagnosis Sinus tachycardia Otherwise normal ECG Confirmed by Delores ARBOLEDA, Kaci ([id number]) on 08/08/2024 3:27:38 AM [facility] 08/04/2024 5:45 PM CDT 08/08/2024 3:27 AM WINDOWS MOBILE DEVELOPER Anastasia Amaro MD ECG ORDERABLES Final Resu lt Performing Organization Address City/[facility]/ZIP Co de Phone Number [facility] * ECG 12 lead (08/04/2024 11:54 AM CDT) [facility] Ventricular Rate EKG/Min 110 BPM [facility] Atrial Rate 110 BPM [facility] CO-Interval (MSEC) 122 ms [facility] QRS-Interval (MSEC) 78 ms [facility] QT-Interval (MSEC) 334 ms [facility] QTc 452 ms [facility] P Santa 52 degrees [facility] R [place] 5 degrees [facility] T [place] 25 degrees [facility] Diagnosis Sinus tachycardia Otherwise normal ECG No previous ECGs available Confirmed by SAMANTA KAPLAN M.D ([id number]) on 08/04/2024 1:23:30 PM [facility] 08/04/2024 11:5 4 AM CDT 08/04/2024 1:23 PM CDT Anastasia Amaro MD ECG ORDERABLES Final Resu lt Performing Organization Address [facility]/ZIP Co de Phone Number [facility] * Antibody identification (08/04/2024 6:12 AM CDT) Pathologist [facility] Antibody ID 1 Passive Anti-D Blood 08/04/2024 6:12 AM CDT 08/04/2024 6:12 AM CDT Anastasia Amaro MD LAB BLOOD BANK TEST ORDERA BLES Final Result [facility] [place] [address] * Lupus Anticoagulant Panel plus Reflexes (08/04/2024 4:48 AM CDT) Pathologist [facility] PT 11.6 9.7 - 13.0 sec INR 1.07 0.90 - 1.20 [facility] Comment: Interpretive data Oral anticoagulant therapeutic ranges: Venous thromboembolism prophylaxis or treatment: 2.0-3.0 CARDIOLOGY Standard range: 2.0-3.0 High-intensity range: 2.5-3.5 Refer to indication-specific guidelines for appropriate target ranges for prosthetic heart valve replacement. Current interpretive data was last revised on 2019. aPTT 29 28 - 38 sec [facility] Comment: Interpretive Data Heparin therapeutic range: 66.0 - 100.0 seconds. Range based on correlation with therapeutic heparin activity range of 0.3 - 0.7 Units/mL. Current interpretive data was last revised on 2023. DRVVT screen ratio 1.13 0.00 - 1.20 Ratio [facility] SCT Screen Ratio 1.01 0.00 - 1.16 Ratio [facility] Lupus anticoagulant, interp Negative [facility] Comment: Interpretive data ?? Lupus anticoagulants [...] A, Mariela JH, Orverónica TL, [place] M, Doan PG. Update of the guidelines for lupus anticoagulant detection. J Thromb Haemost. 2009; 7:1456-4952. 2. Andrew S. et al. International consensus statement on an update of the classification criteria for definite antiphospholipid syndrome (APS). J Thromb Haemost. 2006; 4:295-306. Current interpretive data was last revised on 2018 Blood 08/04/2024 4:48 AM CDT 08/04/2024 5:21 AM CDT Anastasia Amaro MD LAB BLOOD ORDERABLES Final Result Performing Organization Address City/State/[facility] Phone Number [facility] [place] [address] * eGFR (08/04/2024 4:48 AM CDT) eGFR [...] MD LAB BLOOD ORDERABLES Final Result [facility] One [facility] [place] [address] * Beta 2 glycoprotein IgM Ab (08/04/2024 4:48 AM CDT) [facility] Beta-2 glycoprotein I, IgM 0.6 <=19.9 [...] factor. ??These results were obtained with the [employer] 2200 System. Beta-2 GP1 IgM values obtained with different manufacturers' assay methods may not be used interchangeably. Current interpretive data was last revised on 2017. Blood 08/04/2024 4:48 AM CDT 08/04/2024 5:02 AM CDT us Anastasia Amaro MD LAB BLOOD ORDERABLES Final Result Performing Organization Address [facility] de Phone Number [facility] [place] [address] * Beta 2 glycoprotein IgG Ab (08/04/2024 4:48 AM CDT) Beta-2 glycoprotein I, IgG <1.4 <=19.9 units/mL Comment: Interpretive Data Negative: <20 U/mL Positive: > or = 20 U/mL ? Beta-2 glycoprotein 1 (Beta-2 GP1) antibodies are a more specific marker of thrombotic risk. It is expected that some samples will be ACL positive and Beta- 2 [id number]. In order to improve specificity, the International Congress on Antiphospholipid Antibodies recommends Beta-2 GP1 antibodies of IgG or IgM isotype ??(> the 99th percentile), obtained twice, at least 12 weeks apart, to support a diagnosis of antiphospholipid syndrome. The cutoff for this assay was developed from data based on the 99th percentile. These results were obtained with the [employer] System. Beta 2GP1 IgG values obtained with different manufacturers' assay methods may not be used interchangeably. Current interpretive data was last revised on 2017. Blood 08/04/2024 4:48 AM CDT 08/04/2024 5:02 AM CDT Anastasia Amaro MD LAB BLOOD ORDERABLES Final Result Performing Organization Address [facility] de Phone Number BIA [facility] [place] [address] * Cardiolipin antibody, IgG and IgM (08/04/2024 [...] [place]. These results were obtained with the [employer] 2200 System. Cardiolipin IgG values obtained with different manufacturers' assay methods may not be used interchangeably. Current interpretive data was last revised on 2017. Cardiolipin, IgM 0.7 <=19.9 MPL U/mL [facility] Comment: Interpretive Data Negative: <20 MPL [...] antibodies. ??These results were obtained with the [employer] 2200 System. Cardiolipin IgM values obtained with different manufacturers' assay methods may not be used interchangeably. Current interpretive data was last revised on 2017. Blood 08/04/2024 4:48 AM CDT 08/04/2024 5:02 AM CDT Anastasia Amaro MD LAB BLOOD ORDERABLES Final Result Performing Organization Address [facility]/ZIP Co de Phone Number [facility] [place] [address] * (ABNORMAL) CBC without differential (08/04/2024 4:48 AM CDT) WBC 12.6(H) 3.8 - 9.9 K/cumm Hgb 12.4 11.9 - 15.5 g/dL [facility] Hct 36.5 35.6 - 45.5 % [facility] Plt 278 150 - 400 K/cumm [facility] MPV 10.2 9.1 - 12.3 fL [facility] RBC 4.17 3.90 - 5.20 M/cumm [facility] MCV 87.5 81.3 - 96.4 fL [facility] MCH 29.7 27.1 - 33.3 pg [facility] MCHC 34.0 32.3 - 35.7 g/dL [facility] RDW CV 14.1 11.1 - 14.9 % [facility] RDW SD 45.0 35.7 - 48.1 fL [facility] NRBC abs 0.00 0.00 - 0.01 K/cumm [facility] Blood 08/04/2024 4:48 AM CDT 08/04/2024 5:02 AM CDT Anastasia Amaro MD LAB BLOOD ORDERABLES Final Result [facility] [place] [address] * (ABNORMAL) Type and screen (08/04/2024 4:48 AM CDT) Pathologist [facility] ABO Rh O Negative Abiodun, indirect Positive(A) [facility] Blood 08/04/2024 4:48 AM CDT 08/04/2024 4:59 AM CDT Narrative [facility] - 08/04/2024 6:12 AM CDT Has the patient had Daratumumab or Isatuximab in the past 6 months?->Unknown us Anastasia Amaro MD LAB BLOOD BANK TEST ORDERA BLES Final Result [facility] One [facility] [place] [address] * (ABNORMAL) Comprehensive metabolic panel (08/04/2024 4:48 AM CDT) Pathologist [facility] Sodium 137 135 - 145 mmol/L Potassium, pl 3.8 3.3 - 4.9 mmol/L [facility] Chloride 104 97 - 110 mmol/L [facility] CO2 22 22 - 32 mmol/L [facility] Anion gap 11 2 - 15 mmol/L [facility] BUN 8 6 - 25 mg/dL [facility] Creatinine 0.44(L) 0.60 - 1.10 mg/dL [facility] Glucose 77 70 - 199 mg/dL [facility] Comment: Interpretive Data Fasting glucose >/= [...] Calcium 9.2 8.5 - 10.3 mg/dL [facility] Bilirubin, total 0.3 0.1 - 1.2 mg/dL [facility] Protein, pl 6.6 6.5 - 8.5 g/dL [facility] Albumin 3.3(L) 3.5 - 5.0 g/dL [facility] Alk phos 82 40 - 130 Units/L [facility] ALT 23 7 - 45 Units/L [facility] AST 25 10 - 45 Units/L [facility] Blood 08/04/2024 4:48 AM CDT 08/04/2024 5:02 AM CDT us Anastasia Amaro MD LAB BLOOD ORDERABLES Final Result [facility] [place] [address] * Echocardiogram (08/03/2024 4:07 PM CDT) Anatomical Region Laterality Modality Ultrasound 08/03/2024 1:22 PM CDT Narrative 08/03/2024 5:10 PM CDT ?[facility] ? Echo Report ?[address] ??[address] ?[phone] ? Patient Name: DINORA BEE ? Study Type: Echo ? Patient : 1995 ? Exam Date: ??08/03/2024 ? Age: ?29Y ? Exam Time: ??1:22:00 PM ? Referring MD: SIM HUSAIN ? Height: ? 65in ? Weight: ? 284lb ? BSA: ?2.3 m2 ? Sex: FEMALE ? BP: ? 139/83 ? Gis Engineer: May Quick ? Pat. Stat.: Inpatient ?Room: 6800 ? Account:[id number] ? Indications for Study:MONO-DI TWINS Procedures: COLORFLOW, [...] Normal. Septum: PFO. Defect sz. Moderate ??Shunt: [id number] ?? Annular Dimensions: ??Ao Valve: 0.52 cm [...] Note Macie Vickers MD - 08/03/2024 [facility] [facility] Echo Report [address] [address] Patient Name: DINORA BEE Study Type: Echo Patient : 1995 Exam Date: 08/03/2024 Age: 29Y Exam Time: 1:22:00 PM Referring MD: SIM HUSAIN Height: 65in Weight: 284lb BSA: 2.3 m2 Sex: FEMALE BP: 139/83 Gis Engineer: May Quick Pat. Stat.: Inpatient Room: [facility] Account:[id number] Indications for Study:MONO-DI TWINS Procedures: COLORFLOW, DOPPLER [...] Normal. Septum: PFO. Defect sz. Moderate Shunt: Klliu-wo-Sbdv Annular Dimensions: Ao Valve: 0.52 cm (+0.79) [...] AM CDT Narrative 08/03/2024 4:30 PM CDT ?[facility] ? Echo Report ?[facility] [address], [place], [place] ??[address] ?[phone] ? Patient Name: DINORA BEE ? Study Type: Echo ? Patient : 1995 ? Exam Date: ??08/03/2024 ? Age: ?29Y ? Exam Time: ??11:38:00 AM ? Referring MD: SIM HUSAIN ? Height: ? 65in ? Weight: ? 284lb ? BSA: ?2.3 m2 ? Sex: FEMALE ? BP: ? 139/83 ? Gis Engineer: May Quick ? Pat. Stat.: Inpatient ?Room: 6800 ? Account:[id number] ? Indications for Study:AORTIC ECTASIA. 747.29, MONO-DI [...] Normal. Septum: PFO. Defect sz. Moderate ??Shunt: [id number] ?? Ventricles: D-looped ??LV size: Normal. LV [...] Note Macie Vickers MD - 08/03/2024 [facility] Echo Report [address] [address] Patient Name: DINORA BEE Study Type: Echo Patient : 1995 Exam Date: 08/03/2024 Age: 29Y Exam Time: 11:38:00 AM Referring MD: SIM HUSAIN Height: 65in Weight: 284lb BSA: 2.3 m2 Sex: FEMALE BP: 139/83 Gis Engineer: May Hoskins. Stat.: Inpatient Room: [facility] Account:[id number] Indications for Study:AORTIC ECTASIA. 747.29, MONO-DI TWINS [...] Normal. Septum: PFO. Defect sz. Moderate Shunt: Vehvi-za-Fngz Ventricles: D-looped LV size: Normal. LV function:Normal. [...] previously determined to be monochorionic by the [facility] practice. Anatomic surveys were also completed [...] was previously determined to bemonochorionic by the [facility] practice. Anatomic surveys were alsocompleted there. [...] PM CDT 08/01/2024 4:24 PM CDT Narrative [facility] - 08/04/2024 11:19 AM CDT Testing performed by [facility] ([phone]). Millicent Duran NP LAB MICROBIOLOGY - GENERAL ORDERABLES Final Result [facility] One [facility] [place] [address] * eGFR (08/01/2024 4:33 AM CDT) eGFR [...] BLOOD ORDERABLES Final Result Performing Organization Address City/State/[facility] Co de Phone Number [facility] One [facility] [place] [address] * (ABNORMAL) CBC without differential (08/01/2024 4:33 AM CDT) WBC 10.6(H) 3.8 - 9.9 K/cumm Hgb 11.7(L) 11.9 - 15.5 g/dL [facility] Hct 35.1(L) 35.6 - 45.5 % [facility] Plt 269 150 - 400 K/cumm [facility] MPV 9.9 9.1 - 12.3 fL [facility] RBC 3.96 3.90 - 5.20 M/cumm [facility] MCV 88.6 81.3 - 96.4 fL [facility] MCH 29.5 27.1 - 33.3 pg [facility] MCHC 33.3 32.3 - 35.7 g/dL [facility] RDW CV 14.3 11.1 - 14.9 % [facility] RDW SD 46.5 35.7 - 48.1 fL [facility] NRBC abs 0.00 0.00 - 0.01 K/cumm [facility] Blood 08/01/2024 4:33 AM CDT 08/01/2024 4:48 AM CDT Anastasia Amaro MD LAB BLOOD ORDERABLES Final Result Performing Organization Address [facility] Co de Phone Number [facility] [place] [address] * Type and screen (08/01/2024 4:33 AM CDT) Abiodun, indirect Negative ABO Rh O Negative [facility] Blood 08/01/2024 4:33 AM CDT 08/01/2024 5:12 AM CDT Narrative [facility] - 08/01/2024 6:16 AM CDT Has the patient had Daratumumab or Isatuximab in the past 6 months?->Unknown Anastasia Amaro MD LAB BLOOD BANK TEST ORDERA BLES Final Result Performing Organization Address [facility] de Phone Number [facility] [place] [address] * (ABNORMAL) Comprehensive metabolic panel (08/01/2024 4:33 AM CDT) Pathologist [facility] Sodium 140 135 - 145 mmol/L Potassium, pl 3.8 3.3 - 4.9 mmol/L [facility] Chloride 106 97 - 110 mmol/L [facility] CO2 23 22 - 32 mmol/L [facility] Anion gap 11 2 - 15 mmol/L [facility] BUN 7 6 - 25 mg/dL [facility] Creatinine 0.46(L) 0.60 - 1.10 mg/dL [facility] Glucose 75 70 - 199 mg/dL [facility] Comment: Interpretive Data Fasting glucose >/= [...] 2022. Calcium 9.2 8.5 - 10.3 mg/dL [facility] Bilirubin, total 0.2 0.1 - 1.2 mg/dL [facility] Protein, pl 6.1(L) 6.5 - 8.5 g/dL [facility] Albumin 3.1(L) 3.5 - 5.0 g/dL [facility] Alk phos 69 40 - 130 Units/L [facility] ALT 30 7 - 45 Units/L [facility] AST 28 10 - 45 Units/L [facility] Blood 08/01/2024 4:33 AM CDT 08/01/2024 4:48 AM CDT Anastasia Amaro MD LAB BLOOD ORDERABLES Final Result [facility] One [facility] [place] [address] * (ABNORMAL) CBC without differential (07/31/2024 5:09 AM CDT) WBC 11.0(H) 3.8 - 9.9 K/cumm Hgb 10.8(L) 11.9 - 15.5 g/dL [facility] Hct 33.1(L) 35.6 - 45.5 % [facility] Plt 257 150 - 400 K/cumm [facility] MPV 10.3 9.1 - 12.3 fL [facility] RBC 3.71(L) 3.90 - 5.20 M/cumm [facility] MCV 89.2 81.3 - 96.4 fL [facility] MCH 29.1 27.1 - 33.3 pg [facility] MCHC 32.6 32.3 - 35.7 g/dL [facility] RDW CV 14.3 11.1 - 14.9 % [facility] RDW SD 46.8 35.7 - 48.1 fL [facility] NRBC abs 0.02(H) 0.00 - 0.01 K/cumm [facility] Blood 07/31/2024 5:09 AM CDT 07/31/2024 5:27 AM CDT Anastasia Amaro MD LAB BLOOD ORDERABLES Final Result Performing Organization Address [facility] de Phone Number [facility] [place] [address] * Magnesium (07/31/2024 5:07 AM CDT) [facility] Magnesium 1.9 1.4 - 2.5 mg/dL Blood 07/31/2024 5:07 AM CDT 07/31/2024 5:26 AM CDT Anastasia Amaro MD LAB BLOOD ORDERABLES Final Result Performing Organization Address [facility] de Phone Number [facility] [place] [address] * eGFR (07/30/2024 4:49 AM CDT) eGFR [...] Amaro MD LAB BLOOD ORDERABLES Final Result [facility] One [facility] [place] [address] * (ABNORMAL) CBC without differential (07/30/2024 4:49 AM CDT) WBC 10.2(H) 3.8 - 9.9 K/cumm Hgb 10.9(L) 11.9 - 15.5 g/dL [facility] Hct 32.5(L) 35.6 - 45.5 % [facility] Plt 262 150 - 400 K/cumm [facility] MPV 10.0 9.1 - 12.3 fL [facility] RBC 3.65(L) 3.90 - 5.20 M/cumm [facility] MCV 89.0 81.3 - 96.4 fL [facility] MCH 29.9 27.1 - 33.3 pg [facility] MCHC 33.5 32.3 - 35.7 g/dL [facility] RDW CV 14.4 11.1 - 14.9 % [facility] RDW SD 46.5 35.7 - 48.1 fL [facility] NRBC abs 0.00 0.00 - 0.01 K/cumm [facility] Blood 07/30/2024 4:49 AM CDT 07/30/2024 5:02 AM CDT Anastasia Amaro MD LAB BLOOD ORDERABLES Final Result [facility] Department [place] [address] * Magnesium (07/30/2024 4:49 AM CDT) Pathologist [facility] Magnesium 2.3 1.4 - 2.5 mg/dL Blood 07/30/2024 4:49 AM CDT 07/30/2024 5:02 AM CDT Anastasia Amaro MD LAB BLOOD ORDERABLES Final Result Performing Organization Address [facility] de Phone Number [facility] [place] [address] * (ABNORMAL) Comprehensive metabolic panel (07/30/2024 4:49 AM CDT) Pathologist [facility] Sodium 140 135 - 145 mmol/L Potassium, pl 3.9 3.3 - 4.9 mmol/L [facility] Chloride 108 97 - 110 mmol/L [facility] CO2 22 22 - 32 mmol/L [facility] Anion gap 10 2 - 15 mmol/L [facility] BUN 5(L) 6 - 25 mg/dL [facility] Creatinine 0.46(L) 0.60 - 1.10 mg/dL [facility] Glucose 100 70 - 199 mg/dL [facility] Comment: Interpretive Data Fasting glucose >/= [...] 2022. Calcium 8.6 8.5 - 10.3 mg/dL [facility] Bilirubin, total 0.3 0.1 - 1.2 mg/dL [facility] Protein, pl 6.2(L) 6.5 - 8.5 g/dL [facility] Albumin 3.2(L) 3.5 - 5.0 g/dL [facility] Alk phos 70 40 - 130 Units/L [facility] ALT 22 7 - 45 Units/L [facility] AST 23 10 - 45 Units/L [facility] Blood 07/30/2024 4:49 AM CDT 07/30/2024 5:02 AM CDT Anastasia Amaro MD LAB BLOOD ORDERABLES Final Result Performing Organization Address City/[facility] Co de Phone Number [facility] [place] [address] * Check Sample (07/29/2024 6:47 AM CDT) Pathologist [facility] ABO Rh O Negative [facility] HCLL OTHER 07/29/2024 6:47 AM CDT 07/29/2024 7:10 AM CDT Anastasia Amaro MD LAB BLOOD ORDERABLES Final Result Performing Organization Address [facility] de Phone Number [facility] [place] [address] [facility] * eGFR (07/29/2024 5:43 AM CDT) [...] BLOOD ORDERABLES Final Result Performing Organization Address [facility] de Phone Number [facility] [place] [address] * HIV 1/2 Antibody plus p24 Antigen Blood (07/29/2024 5:43 AM CDT) [facility] HIV 1/2 ab + p24 ag [...] GENERAL ORDERABLES Final Result Performing Organization Address [facility] Co de Phone Number BIA [facility] [place] [address] * Protein / creatinine ratio, urine, random (07/29/2024 5:43 AM CDT) [facility] Protein, ur, quant 8.4 mg/dL Comment: Interpretive Data No reference range established. Current interpretive data was last revised 2019. Creatinine Ur 82.2 mg/dL [facility] Comment: Interpretive Data No reference range established. Current interpretive data was last revised 2019. Protein/creatinin e ratio 102.2 0.0 - 180.0 mg/g CR [facility] Urine 07/29/2024 5:43 AM CDT 07/29/2024 9:30 AM CDT Anastasia Amaro MD LAB URINE ORDERABLES Final Result Performing Organization Address [facility] Co de Phone Number [facility] [place] [address] * RPR Blood (07/29/2024 5:43 AM CDT) [facility] RPR Nonreactive Nonreactive Blood 07/29/2024 5:43 AM CDT 07/29/2024 6:36 AM CDT Anastasia Amaro MD LAB MICROBIOLOGY - GENERAL ORDERABLES Final Result Performing Organization Address City/[facility]/ZIP Co de Phone Number [facility] [place] [address] * (ABNORMAL) CBC without differential (07/29/2024 5:43 AM CDT) [facility] WBC 9.6 3.8 - 9.9 K/cumm Hgb 11.2(L) 11.9 - 15.5 g/dL [facility] Hct 33.5(L) 35.6 - 45.5 % [facility] Plt 291 150 - 400 K/cumm [facility] MPV 10.4 9.1 - 12.3 fL [facility] RBC 3.83(L) 3.90 - 5.20 M/cumm [facility] MCV 87.5 81.3 - 96.4 fL [facility] MCH 29.2 27.1 - 33.3 pg [facility] MCHC 33.4 32.3 - 35.7 g/dL [facility] RDW CV 14.2 11.1 - 14.9 % [facility] RDW SD 45.5 35.7 - 48.1 fL [facility] NRBC abs 0.00 0.00 - 0.01 K/cumm [facility] Blood 07/29/2024 5:43 AM CDT 07/29/2024 6:35 AM CDT Anastasia Amaro MD LAB BLOOD ORDERABLES Final Result Performing Organization Address [facility] Co de Phone Number [facility] [place] [address] * Type and screen (07/29/2024 5:43 AM CDT) Abiodun, indirect Negative ABO Rh O Negative [facility] Blood 07/29/2024 5:43 AM CDT 07/29/2024 6:37 AM CDT Narrative [facility] - 07/29/2024 7:26 AM CDT Has the patient had Daratumumab or Isatuximab in the past 6 months?->Unknown Anastasia Amaro MD LAB BLOOD BANK TEST ORDERA BLES Final Result [facility] [place] [address] * (ABNORMAL) Magnesium (07/29/2024 5:43 AM CDT) Magnesium 3.7(H) 1.4 - 2.5 mg/dL Blood 07/29/2024 5:43 AM CDT 07/29/2024 6:36 AM CDT Anastasia Amaro MD LAB BLOOD ORDERABLES Final Result [facility] [place] [address] * (ABNORMAL) Comprehensive metabolic panel (07/29/2024 5:43 AM CDT) Sodium 140 135 - 145 mmol/L Potassium, pl 3.4 3.3 - 4.9 mmol/L [facility] Chloride 103 97 - 110 mmol/L [facility] CO2 22 22 - 32 mmol/L [facility] Anion gap 15 2 - 15 mmol/L [facility] BUN 5(L) 6 - 25 mg/dL [facility] Creatinine 0.51(L) 0.60 - 1.10 mg/dL [facility] Glucose 92 70 - 199 mg/dL [facility] Comment: Interpretive Data Fasting glucose >/= [...] 2022. Calcium 8.5 8.5 - 10.3 mg/dL [facility] Bilirubin, total 0.6 0.1 - 1.2 mg/dL [facility] Protein, pl 6.5 6.5 - 8.5 g/dL [facility] Albumin 3.7 3.5 - 5.0 g/dL [facility] Alk phos 74 40 - 130 Units/L [facility] ALT 20 7 - 45 Units/L [facility] AST 25 10 - 45 Units/L [facility] Blood 07/29/2024 5:43 AM CDT 07/29/2024 6:36 AM CDT Anastasia Amaro MD LAB BLOOD ORDERABLES Final Result Performing Organization Address City/[facility]/ZIP Co de Phone Number BIA TODD [facility] [place] [address] * eGFR (07/28/2024 10:30 PM CDT) eGFR [...] LAB BLOOD ORDERABLES F inal Result BIA [facility] ([place]) 1 [facility] Department [place] [address] * (ABNORMAL) Urinalysis reflex to microscopic and culture Urine, clean voided (07/28/2024 10:30 PM CDT) Color, ur Yellow Yellow Clarity, ur Clear Clear [facility] ([place]) Specific gravity, ur 1.015 1.003 - [...] tendency for uric acid stone formation. Source: [facility] Current Interpretive Data was last revised on 2017 Protein, ur ql Negative Negative [facility] ([place]) Glucose, ur ql Negative Negative [facility] ([place]) Ketones, ur 1+(A) Negative [facility] ([place]) Bilirubin, ur Negative Negative [facility] ([place]) Blood, ur Negative Negative [facility] ([place]) Urobilinogen, ur <2.0 <2.0 mg/dL [facility] ([place]) Nitrite, ur Negative Negative [facility] ([place]) Leukocyte esterase, ur Negative Negative [facility] ([place]) UA reflex comment Reflex conditions for microscopic UA and culture not met. [facility] ([place] Urine, clean voided 07/28/2024 10:30 PM CDT 07/28/2024 10:37 PM CDT us Kodak Sterling MD LAB MICROBIOLOGY - GEN ERAL ORDERABLES Final Result [facility] ([place]) 1 [facility] Department [place] [address] * Protein / creatinine ratio, urine, random (07/28/2024 10:30 PM CDT) Protein, ur, quant 13.9 mg/dL Comment: Interpretive Data No reference range established. Current interpretive data was last revised 2019. Creatinine Ur 113.7 mg/dL [facility] ([place]) Comment: Interpretive Data No reference range established. Current interpretive data was last revised 2019. Protein/creatinin e ratio 122.3 0.0 - 180.0 mg/g CR [facility] ([place]) Urine 07/28/2024 10:3 0 PM CDT 07/28/2024 10:37 PM CDT Kodak Sterling MD LAB URINE ORDERABLES F inal Result [facility] ([place]) 1 [facility] Department [place] [address] * (ABNORMAL) CBC without differential (07/28/2024 10:30 [...] F inal Result BIA [facility] ([place]) 1 [facility] [place] [address] * Uric acid (07/28/2024 10:30 PM CDT) [facility] Uric acid 5.5 2.5 - 7.0 mg/dL Blood 07/28/2024 10:3 0 PM CDT 07/28/2024 10:36 PM CDT Kodak Sterling MD LAB BLOOD ORDERABLES F inal Result Performing Organization Address City/[facility]/ZIP Co de Phone Number [facility] ([place]) [address] [place] [address] * Lactate dehydrogenase (LD) (07/28/2024 10:30 PM CDT) [facility] Lactate dehydrogenase (LDH) 163 100 - 250 Units/L Blood 07/28/2024 10:3 0 PM CDT 07/28/2024 10:36 PM CDT Kodak Sterling MD LAB BLOOD ORDERABLES F inal Result Performing Organization Address City/[facility] Co de Phone Number [facility] ([place]) [address] [place] [address] * (ABNORMAL) Comprehensive metabolic panel (07/28/2024 10:30 PM CDT) Pathologist [facility] Sodium 135 135 - 145 mmol/L Potassium, pl 3.1(L) 3.3 - 4.9 mmol/L [facility] ([place]) Chloride 101 97 - 110 mmol/L [facility] ([place]) CO2 20(L) 22 - 32 mmol/L [facility] ([place]) Anion gap 14 2 - 15 mmol/L [facility] ([place]) BUN 5(L) 6 - 25 mg/dL [facility] ([place]) Creatinine 0.56(L) 0.60 - 1.10 mg/dL [facility] ([place]) Glucose 80 70 - 199 mg/dL [...] LAB BLOOD ORDERABLES F inal Result [facility] ([place] 1 [facility] Department [place] [address] * eGFR (07/27/2024 4:00 PM CDT) Pathologist [facility] eGFR >90 >=60 mL/min/1. 73 m2 Comment: [...] MD LAB BLOOD ORDERABLES Final Re sult [facility] [address] [place] [address] * Differential, auto (07/27/2024 4:00 PM CDT) Neutrophil abs 5.9 1.5 - 6.5 K/cumm Imm gran abs 0.1 0.0 - 0.1 K/cumm [facility] Lymphocyte abs 2.0 0.8 - 3.3 K/cumm [facility] Monocyte abs 0.8 0.2 - 0.8 K/cumm [facility] Eosinophil abs 0.1 0.0 - 0.5 K/cumm [facility] Basophil abs 0.0 0.0 - 0.1 K/cumm [facility] Neutrophil pct 66.7 % [facility] Comment: Interpretive Data Percent cell count reference ranges are not reported, since discordance with absolute values may lead to misinterpretation of CBC data. Current Interpretive Data was last revised on 2018. Imm gran pct 0.8 % [facility] Comment: Interpretive Data Percent cell count reference ranges are not reported, since discordance with absolute values may lead to misinterpretation of CBC data. Current Interpretive Data was last revised on 2018. Lymphocyte pct 22.5 % [facility] Comment: Interpretive Data Percent cell count reference ranges are not reported, since discordance with absolute values may lead to misinterpretation of CBC data. Current Interpretive Data was last revised on 2018. Monocyte pct 8.4 % [facility] Comment: Interpretive Data Percent cell count reference ranges are not reported, since discordance with absolute values may lead to misinterpretation of CBC data. Current Interpretive Data was last revised on 2018. Eosinophil pct 1.4 % [facility] Comment: Interpretive Data Percent cell count reference ranges are not reported, since discordance with absolute values may lead to misinterpretation of CBC data. Current Interpretive Data was last revised on 2018. Basophil pct 0.2 % [facility] Comment: Interpretive Data Percent cell count reference ranges are not reported, since discordance with absolute values may lead to misinterpretation of CBC data. Current Interpretive Data was last revised on 2018. Blood 07/27/2024 4:00 PM CDT 07/27/2024 4:39 PM CDT us Byron Tellez MD LAB BLOOD ORDERABLES Final Re sult [facility] [address] [place] [address] * CBC with auto differential (07/27/2024 4:00 PM CDT) WBC 8.9 3.8 - 9.9 K/cumm Hgb 13.0 11.9 - 15.5 g/dL [facility] Hct 37.9 35.6 - 45.5 % [facility] Plt 298 150 - 400 K/cumm [facility] MPV 10.0 9.1 - 12.3 fL [facility] RBC 4.25 3.90 - 5.20 M/cumm [facility] MCV 89.2 81.3 - 96.4 fL [facility] MCH 30.6 27.1 - 33.3 pg [facility] MCHC 34.3 32.3 - 35.7 g/dL [facility] RDW CV 14.1 11.1 - 14.9 % [facility] RDW SD 46.0 35.7 - 48.1 fL [facility] NRBC abs 0.00 0.00 - 0.01 K/cumm [facility] Blood 07/27/2024 4:00 PM CDT 07/27/2024 4:39 PM CDT us Byron Tellez MD LAB BLOOD ORDERABLES Final Re sult Performing Organization Address [facility] Co de Phone Number [facility] [address] [employer] [address] * Protein / creatinine ratio, urine, random (07/27/2024 4:00 PM CDT) Protein, ur, quant 25.0 mg/dL Comment: Interpretive Data No reference range established. Current interpretive data was last revised 2019. Creatinine Ur 157.3 mg/dL [facility] Comment: Interpretive Data No reference range established. Current interpretive data was last revised 2019. Protein/creatinin e ratio 158.9 0.0 - 180.0 mg/g CR [facility] Urine 07/27/2024 4:00 PM CDT 07/27/2024 4:44 PM CDT us Byron Tellez MD LAB URINE ORDERABLES Final Re sult Performing Organization Address [facility]/ZIP Co de Phone Number [facility] [address] [facility] [place] [address] * Uric acid (07/27/2024 4:00 PM CDT) Uric acid 4.9 2.5 - 7.0 mg/dL Blood 07/27/2024 4:00 PM CDT 07/27/2024 4:45 PM CDT us Byron Tellez MD LAB BLOOD ORDERABLES Final Re sult [facility] [address] [place] [address] * (ABNORMAL) Comprehensive metabolic panel (07/27/2024 4:00 PM CDT) Pathologist [facility] Sodium 137 135 - 145 mmol/L Potassium, pl 3.5 3.3 - 4.9 mmol/L [facility] Chloride 104 97 - 110 mmol/L [facility] CO2 21(L) 22 - 32 mmol/L [facility] Anion gap 12 2 - 15 mmol/L [facility] BUN 5(L) 6 - 25 mg/dL [facility] Creatinine 0.53(L) 0.60 - 1.10 mg/dL [facility] [facility] Glucose 75 70 - 199 mg/dL [facility] Comment: Interpretive Data Fasting glucose [...] 2022. Calcium 9.4 8.5 - 10.3 mg/dL [facility] Bilirubin, total 0.4 0.1 - 1.2 mg/dL [facility] Protein, pl 7.1 6.5 - 8.5 g/dL [facility] Albumin 3.7 3.5 - 5.0 g/dL [facility] Alk phos 72 40 - 130 Units/L [facility] ALT 20 7 - 45 Units/L [facility] AST 21 10 - 45 Units/L [facility] Blood 07/27/2024 4:00 PM CDT 07/27/2024 4:45 PM CDT Byron Tellez MD LAB BLOOD ORDERABLES Final Re sult 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 [...] Large Ketones, ur, POC Negative Negative Specific [place], POC 1.025 1.003 - 1.030 Blood, ur, [...] BLOOD ORDERABLE S Final Result [facility]) [facility] Department [place] [address] [phone] * (ABNORMAL) POCT OB urine short dip (glucose, protein, ketones) (07/12/2024 10:31 AM CDT) Pathologist [facility] Glucose, ur, POC Negative Negative MG/DL Protein, ur, POC Trace(A) Negative Ketones, ur, POC Negative Negative Lot Number [id number] Urine 07/12/2024 10:3 1 AM CDT Dia Mantilla MD POINT OF CARE TEST ORDERABLES Final Result * US Ob Limited (07/12/2024 10:20 AM CDT) Pathologist [facility] Fetus# [id number] [place] Placenta Details anterior [place] [...] antibody Blood (05/20/2024 2:47 PM CDT) Pathologist [facility] Hep C Ab Nonreactive Nonreactive Comment: Interpretive [...] GENERAL ORDERABLES Final Result Performing Organization Address City/State[place] Phone Number [place] [phone] [place] [address] from Last 3 Months or Most Recently Relevant to Health Maintenance Insurance [employer]PA [facility] EXCHANGE [place] [employer] [place] Advance Directives For more information, please contact: [phone] * Full Code (Latest Code Status on File) Date Activated Date Inactivated Comments 09/19/2024 4:34 PM 09/22/2024 3:32 PM * Full Code Date Activated Date Inactivated Comments 07/29/2024 3:05 AM 09/19/2024 4:34 PM Care Teams Real Estate Transaction Manager Relationship Specialty Start Date End Date No, Physician PCP - General 02/25/24
--- OUTSIDE RECORDS SUMMARY | 2024-10-10 01:46 | XMS_ITS | Encounter Summary ---
Author Organization [facility] Healthcare Address [address] [place] [address] Care Team Providers Care Ceo & Co Founder Name Role Phone No, Physician Primary Care Provider [phone] Reason for Visit * Auth/Cert (Routine) Specialty Diagnoses / Procedures Referred By Contac t Referred To Contact Diagnoses Preeclampsia, unspecified trimester Hypertension Procedures N/A Referral ID Status Reason Start Date Expiration Date Visits Re quested Visits Authorized [id number] 1 1 Encounter Details Date Type Department Care Team (Late st Contact Info) Description 07/29/2024 2:42 AM CDT - 09/22/2024 11:26 AM PHOTOGRAPH EDITOR Hospital Encounter [address] [phone] Anastasia Amaro MD [address] [place] [id number] [place] [address] [place] [address] [phone] [place] [address] [place] [address] [place] [id number] [place] [address] [place] [phone] Preeclampsia, unspecified trimester (Primary Dx); Twin , unable to determine number of placenta and number of amniotic sacs, antepartum, unspecified trimester [O30.099]; 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 Discharge Disposition: Discharge to home or self care Social History Tobacco Use Types Packs/Day Years Used Date Smoking Tobacco: Never Smokeless Tobacco: Never [facility] Utilities Answer Date Recorded In the past 12 months has e [email or web address], gas, oil, or water company threatened to [...] often do you attend chur ch or yazdanism services? Never 07/29/2024 Do you belong to any clubs o r organizations such as adventism groups, unions, fraternal or athletic groups, or [...] staff should administer the PHQ-9) 0 07/28/2024 [facility] - Occupational Stress Questionnaire Answer [...] things needed for daily living? No 07/29/2024 [place] Depression Scale Answer Date Recorded [place] Depression Scale Total 8 07/12/2024 The thought [...] any time in the past 12 m [facility], were you homeless or living in [...] on file Legal Sex Female 2:19 AM PHOTOGRAPH EDITOR Gender Identity Not on file Sexual Orientation Not on file documented as of this encounter Last Filed Vital Signs Vital Sign Reading Time Taken Comments Blood Pressure 138/84 09/22/2024 8:36 AM PHOTOGRAPH EDITOR Pulse 90 09/22/2024 8:36 AM PHOTOGRAPH EDITOR Temperature 36.6 ??C (97.9 ??F) 09/22/2024 8:36 AM CS T Respiratory Rate 17 09/22/2024 8:36 AM PHOTOGRAPH EDITOR Oxygen Saturation 99% 09/22/2024 8:36 AM PHOTOGRAPH EDITOR Inhaled Oxygen Concentration - - Weight 128.8 [...] 09/19/2024t 2:59 PM Delivery method: Regino Leon [[id number]] [351] Morales Leon [[id number]] [351] Primary Discharge Diagnosis: Intrauterine at 34w0d, [...] follow up with her primary OB team ([facility]). Symptoms of preeclampsia have been reviewed. # [...] Blood pressures well controlled on N120XL and A679PLV. CBC/CMP WNL, UPC 0.1.Enrolled in remote blood [...] # Disposition: Follow up task sent to [facility] scheduling pool for appointments in 2 and 6 weeks. They are enrolled in remote blood pressure monitoring for their BP check. Desires discharge home today. Service Coverage These phones are service phones and carried 27/04 in house: R1 (first call) [phone] R1 alt (second call) [phone] R4 (Chief) [phone] See full physical exam from progress note [...] Provider Department Center 10/13/2024 1:40 PM MFM GROUP HOME WORKER [facility] 7 OB CATALINA Tena 09/22/24 I reviewed and edited the above for accuracy & clarity Willie Kelly MD OGRAPH EDITOR OGRAPH EDITOR documented in this encounter Discharge Instructions * Discharge Instructions* Ana Gauthier NP - 09/20/2024 10:10 AM PHOTOGRAPH EDITOR Images from the original note were not included. Discharge Instructions - Section For any concerns call our OB communication center at [phone] 27/04. * If you have SEVERE illness [...] hours). Do NOT supplement unless instructed by Jute Bag Clipper. Call your Jute Bag Clipper if your baby has poor eating habits [...] call our centralized OB communication center at [phone]. Do not come to the hospital or clinic until you speak with a provider. Contact Information for your primary OB: [facility] - [address] [place] [address] Call to schedule an appointment to be [...] right, call our OB communication center at [phone]. High blood pressure problems during & after [...] should call the doctor if you experience: long term acute care registered nurse risks of preeclampsia If you had preeclampsia [...] 200 mg capsule Commonly known as: PROMETRIUM OGRAPH EDITOR OGRAPH EDITOR documented in this encounter Medications at Time [...] this encounter Progress Notes * Ana Gauthier GROUP HOME WORKER - 09/22/2024 9:10 AM CST Post Progress Note Admission Date: 07/29/2024 SUBJECTIVE Suki Leon is a 29 y.o. postop day 3 s/p Regino Leon [[id number]] Morales Leon [[id number]] . Pain: Controlled Bleeding: lochia minimal Oral [...] ABORH O Negative 09/20/2024 IDCOOMB Negative 09/18/2024 [id number] Nonreactive 08/13/2024 LABRPR Nonreactive 08/13/2024 RUBELIGG Reactive [...] AND calcium gluconate AND Magnesium cyclobenzaprine ibuprofen fnzwyiw-uompt-pedaaxb ondansetron ODT OR ondansetron oxyCODONE simethicone sodium chloride 0.9% ASSESSMENT/PLAN Suki Leon is a 29 y.o. female postop day 3 s/p Regino Leon [[id number]] Morales Leon [[id number]] . Problem Care Following Delivery # ID: [...] Blood pressures well controlled on N120XL and N487UVV. CBC/CMP WNL, UPC 0.1.Enrolled in remote blood [...] # Disposition: Follow up task sent to [facility] scheduling pool for appointments in 2 and 6 weeks. They are enrolled in remote blood pressure monitoring for their BP check. Desires discharge home today. Service Coverage These phones are service phones and carried 27/04 in house: R1 (first call) [phone] R1 alt (second call) [phone] R4 (Chief) [phone] CATALINA Tena 09/22/24 Cosigned by Willie Kelly MD at 09/22/2024 4:18 PM PHOTOGRAPH EDITOR OGRAPH EDITOR OGRAPH EDITOR * Marge Castro RD - 09/21/2024 3:22 [...] Adult Diet Regular Diet effective now Question: ([facility]) Diet type Answer: Regular 09/19/24 1634 [...] Marge Castro MS, RD, CNSC, LD Cell OGRAPH EDITOR * Millie Pierce LCSW - 09/21/2024 12:19 PM CST Reason for Admission MOB (Suki Abenaneena Leon 1995) was admitted on 07/29/2024 for Preeclampsia, unspecifiedtrimester [O14.90]. Social Work met with Suki Leon for check in. Medical History OB-ASSISTANT INVENTORY MANAGER care has been established with BONNIE. Pediatric follow-up to be scheduled throughout twins' admission to the [facility] NICU. Medical insurance coverage is through [employer] [place] [employer], [place]. Information Pt. delivered twin baby's with a of 09/19/24. Twins' EGA's are . Baby boy A's name is Regino and weighed 5lb 8.2oz at delivery. Baby boy B's name is Morales and weighed 4lb 3oz. Pt. delivered via . Babies were admitted to the [facility] NICU. Pt. plans to breast feed the twins and is currently pumping. These are the Pt.'s first children. [place] admitted to [facility] NICU re: prematurity, RDS. Social History Current address is [address] [place] [id number], where she lives with her . Currently [phone] (home) is the best phone number for future contact. MOB reports that her and their families will be a positive support for her and her child. Father of the baby, Florentino Leon, can be reached at [phone]. FOB has been present and supportive at the hospital. Mood and Anxiety Maternal history of anxiety. SW and MOB discussed mental health and coping throughout inpatient APUadmission. MOB continues to report manageable mood and is adjusting as expected to twins' admssion to [facility] NICU. SW and MOB discussed the [...] provided in Welcome Folder. SW reviews [facility] NICU SW and [facility] support services [...] lodging referrals (HASMUKH Garcia)- This clinician reviews [facility] resources, including waitlist and need for background checks to be completed prior to their entry. Family understanding and agreeable to referral- this clinician completes referral, as requested. [facility] SW provides support and encouragement. Family denies having any questions or concerns for this clinician. Strengths MOB is open and receptive to Social Work intervention, education, and resources. Safe Discharge Plan [facility] SW to collaborate with [facility] NICU SW (Sim Marino, ) for family care handoff, as needed. NICU SW will follow up with family throughout remainder of 's admission to [facility]. No further [facility] SW needs indicated at this time. ARACELIS Tyler, STEAMFITTER APPRENTICE [facility] Clinical Drafter [facility] OGRAPH EDITOR * Ana Gauthier NP - 09/21/2024 8:55 AM CST Post Progress Note Admission Date: 07/29/2024 KHADAR Leon is a 29 y.o. postop day 2 s/p Tiffany Leon [[id number]] Nancy Leon [[id number]] . Pain: moderately Controlled Bleeding: lochia minimal [...] ABORH O Negative 09/20/2024 IDCOOMB Negative 09/18/2024 [id number] Nonreactive 08/13/2024 LABRPR Nonreactive 08/13/2024 RUBELIGG Reactive [...] AND calcium gluconate AND Magnesium cyclobenzaprine ibuprofen wjlkqkb-vaurn-ijtcewy ondansetron ODT OR ondansetron oxyCODONE simethicone sodium chloride 0.9% varicella zoster ASSESSMENT/PLAN Suki Leon is a 29 y.o. female postop day 2 s/p Tiffany Leon [[id number]] Nancy Leon [[id number]] . Problem Care Following Delivery # ID: [...] Blood pressures well controlled on N120XL and A631WGB. CBC/CMP WNL, UPC 0.1.Enrolled in remote blood [...] # Disposition: Follow up task sent to [facility] scheduling pool for appointments in 2 and 6 weeks. They are enrolled in remote blood pressure monitoring for their BP check. Continue routine postoperative care. Service Coverage These phones are service phones and carried 27/04 in house: R1 (first call) [phone] R1 alt (second call) [phone] R4 (Chief) [phone] CATALINA Tena 09/21/24 Cosigned by Angelica Amin MD at 09/21/2024 5:43 PM PHOTOGRAPH EDITOR OGRAPH EDITOR OGRAPH EDITOR OGRAPH EDITOR Associated attestation - Angelica Amin MD - 09/21/2024 5:43 PM PHOTOGRAPH EDITOR The nurse practitioner saw and examined the patient, we discussed their findings, and I am in agreement with the plan based on the discussion with the nurse practitioner. I did not personally examinethe patient as she was out of her room at the time of rounding. Angeliac Amin MD * Carola Murphy - 09/20/2024 1:15 PM CST Chaplain Carola Murphy [facility] Spiritual Care Triage: [phone] 09/20/24 1300 Time Spent Start Time 1300 Stop Time 1315 Time Calculation (min) 15 min Clinical Encounter Type Visited With Patient Response Type Routine visit;Continuing visit Routine Visit Follow-up Reason for visit Support Outcomes and Progress Demonstrating care and respect Achieved Establish rapport and connectedness Achieved Interventions Interventions Offer emotional support OGRAPH EDITOR * Marielle Shanks DO - 09/20/2024 6:47 AM CST Post Progress Note Delivery Date/Time: 09/19/2024t 2:59 PM Delivery method: Tiffany eLon [[id number]] [351] Nancy Leon [[id number]] [351] Subjective Suki Leon is a 29 y.o. POD#1 from [facility]. Doing well this morning, does notlike how [...] AND calcium gluconate AND Magnesium HYDROmorphone ibuprofen lduzewj-xbevi-iqivgdo naloxone ondansetron ondansetron ODT OR ondansetron oxyCODONE [...] Blood pressures well controlled on N120XL and X401ETL. CBC/CMP WNL, UPC 0.1. To be enrolled [...] # Disposition: Follow up task sent to [facility] scheduling pool for appointments in 2 and 6 weeks. They are enrolled in remote blood pressure monitoring for their BP check. Continue routine postoperative care. Service Coverage These phones are service phones and carried 27/04 in house: R1 (first call) [phone] R1 alt (second call) [phone] R4 (Chief) [phone] Marielle Shanks DO Resident Physician, PGY-1 Department of Obstetrics & Gynecology R4 Attestation I agree with the above documentation. POD#1 scheduled pLTCS for Shay and PreEwSF. Continues on MgSO4 until this afternoon 1500, BPs well controlled on current 2 agent regimen. Continue routine care. Sue Rodriguez MD PGY-4 Cosigned by Abigail Alberto MD at 09/20/2024 6:12 PM PHOTOGRAPH EDITOR OGRAPH EDITOR OGRAPH EDITOR OGRAPH EDITOR Associated attestation - Abigail Alberto MD - 09/20/2024 6:12 PM PHOTOGRAPH EDITOR I have seen and examined the patient [...] 18 BP: (123-140)/(77-87) 123/79 FHR: reactive NST [place]: no regular contractions Physical Exam General: No [...] Josefina Peter MD at 10/05/2024 8:24 PM PHOTOGRAPH EDITOR OGRAPH EDITOR OGRAPH EDITOR Associated attestation - Josefina Peter MD - 10/05/2024 8:24 PM PHOTOGRAPH EDITOR I have seen and examined the patient [...] 18 BP: (112-135)/(62-89) 135/89 FHR: reactive NST [place]: no regular contractions Physical Exam General: No [...] Sandra Christy MD at 09/18/2024 8:19 AM PHOTOGRAPH EDITOR OGRAPH EDITOR OGRAPH EDITOR Associated attestation - Sandra Christy MD - 09/18/2024 8:19 AM PHOTOGRAPH EDITOR I have seen and examined the patient. [...] BP: (117-136)/(76-91) 133/81 FHR: reactive NST x2 [place]: no regular contractions Physical Exam General: No [...] Sandra Christy MD at 09/17/2024 8:19 AM PHOTOGRAPH EDITOR OGRAPH EDITOR OGRAPH EDITOR Associated attestation - Sandra Christy MD - 09/17/2024 8:19 AM PHOTOGRAPH EDITOR I have seen and examined the patient. I agree with the findings and plan of care as documented in this note. Sandra Christy MD MS Maternal- Medicine * Carola Murpyh - 09/16/2024 11:15 AM CST Chaplain Carola Murphy [facility] Spiritual Care Triage: [phone] 09/16/24 1100 Time Spent Start Time 1100 Stop Time 1115 Time Calculation (min) 15 min Clinical Encounter Type Visited With Patient Response Type Routine visit;Continuing visit Routine Visit Follow-up Reason for visit Support Outcomes and Progress Demonstrating care and respect Achieved Establish rapport and connectedness Achieved Interventions Interventions Offer emotional support;Offer spiritual/yazdanism support;Prayer OGRAPH EDITOR * Rey Quinonez MD - 09/16/2024 7:00 [...] BP: (119-136)/(70-83) 126/79 FHR: reactive NST x2 [place]: no regular contractions Physical Exam General: No [...] Sandra Christy MD at 09/16/2024 9:27 AM PHOTOGRAPH EDITOR OGRAPH EDITOR OGRAPH EDITOR Associated attestation - Sandra Christy MD - 09/16/2024 9:27 AM PHOTOGRAPH EDITOR I have seen and examined the patient. [...] All questions answered. Plan to schedule CS [id number] and continue daily testing. Joellen Schilling MD Maternal- Medicine Fellow OGRAPH EDITOR * Anastasia Plaza MD - 09/15/2024 7:57 [...] BP: (122-137)/(61-88) 124/61 FHR: reactive NST x2 [place]: no regular contractions Physical Exam General: No [...] Sandra Christy MD at 09/15/2024 11:55 AM PHOTOGRAPH EDITOR OGRAPH EDITOR OGRAPH EDITOR Associated attestation - Sandra Christy MD - 09/15/2024 11:55 AM PHOTOGRAPH EDITOR I have seen and examined the patient. [...] BP: (127-141)/(86-99) 140/91 FHR: reactive NST x2 [place]: no regular contractions Physical Exam General: No [...] note. Sandra Christy MD MS Maternal- Medicine OGRAPH EDITOR OGRAPH EDITOR * Millie Pierce LCSW - 09/13/2024 2:28 [...] social needs. SW remains available. Millie Pierce, BATT MACHINE OPERATOR, STEAMFITTER APPRENTICE [facility] Clinical Drafter [facility] OGRAPH EDITOR * Anastasia Plaza MD - 09/13/2024 7:11 [...] BP: (120-137)/(71-92) 131/84 FHR: reactive NST x2 [place]: no regular contractions Physical Exam General: No [...] Sandra Christy MD at 09/13/2024 10:29 AM PHOTOGRAPH EDITOR OGRAPH EDITOR OGRAPH EDITOR Associated attestation - Sandra Christy MD - 09/13/2024 10:29 AM PHOTOGRAPH EDITOR I have seen and examined the patient. I agree with the findings and plan of care as documented in this note. Sandra Christy MD MS Maternal- Medicine * Carola Murphy - 09/12/2024 11:00 AM CST Chaplain Carola Murphy [facility] Spiritual Care Triage: [phone] 09/12/24 1045 Time Spent Start Time 1045 Stop Time 1100 Time Calculation (min) 15 min Clinical Encounter Type Visited With Patient Response Type Routine visit;Continuing visit Routine Visit Follow-up Reason for visit Support Outcomes and Progress Demonstrating care and respect Achieved Establish rapport and connectedness Achieved Interventions Interventions Offer emotional support;Offer spiritual/yazdanism support OGRAPH EDITOR * Rey Quinonez MD - 09/12/2024 7:24 [...] BP: (120-143)/(76-90) 125/87 FHR: reactive NST x2 [place]: no regular contractions Physical Exam General: No [...] Sandra Christy MD at 09/12/2024 9:25 AM PHOTOGRAPH EDITOR OGRAPH EDITOR OGRAPH EDITOR Associated attestation - Sandra Christy MD - 09/12/2024 9:25 AM PHOTOGRAPH EDITOR I have seen and examined the patient. [...] BP: (124-139)/(79-87) 136/79 FHR: reactive NST x2 [place]: no regular contractions Physical Exam General: No [...] Sara Eng MD at 09/11/2024 9:48 AM PHOTOGRAPH EDITOR OGRAPH EDITOR OGRAPH EDITOR Associated attestation - Sara Eng MD - 09/11/2024 9:48 AM PHOTOGRAPH EDITOR I have seen and examined the patient [...] BP: (124-134)/(78-86) 125/81 FHR: reactive NST x2 [place]: no regular contractions Physical Exam General: No [...] Nini Cortez MD at 09/10/2024 3:14 PM PHOTOGRAPH EDITOR OGRAPH EDITOR OGRAPH EDITOR Associated attestation - Nini Cortez MD - 09/10/2024 3:14 PM PHOTOGRAPH EDITOR MFM Attending Attestation I have seen and [...] BP: (121-138)/(72-87) 130/76 FHR: reactive NST x2 [place]: no regular contractions Physical Exam General: No [...] Sara Eng MD at 09/09/2024 12:11 PM PHOTOGRAPH EDITOR OGRAPH EDITOR OGRAPH EDITOR Associated attestation - Sara Eng MD - 09/09/2024 12:11 PM PHOTOGRAPH EDITOR I have seen and examined the patient on 09/09/24. I agree with the findings and plan of care as documented in the resident's/fellow's note. Sara Eng MD. * Carola Murphy - 09/08/2024 11:40 AM CST Chaplain Carola Murphy [facility] Spiritual Care Triage: [phone] 09/08/24 1100 Time Spent Start Time 1120 Stop Time 1140 Time Calculation (min) 20 min Clinical Encounter Type Visited With Patient Response Type Routine visit;Continuing visit Routine Visit Follow-up Reason for visit Support Outcomes and Progress Demonstrating care and respect Achieved Establish rapport and connectedness Achieved Interventions Interventions Offer emotional support;Offer spiritual/yazdanism support OGRAPH EDITOR * Anastasia Plaza MD - 09/08/2024 7:34 [...] BP: (119-138)/(61-87) 138/87 FHR: reactive NST x2 [place]: no regular contractions Physical Exam General: No [...] Sara Eng MD at 09/08/2024 10:42 AM PHOTOGRAPH EDITOR OGRAPH EDITOR OGRAPH EDITOR OGRAPH EDITOR Associated attestation - Sara Eng MD - 09/08/2024 10:42 AM PHOTOGRAPH EDITOR I have seen and examined the patient [...] Adult Diet Regular Diet effective now Question: ([facility]) Diet type Answer: Regular 07/29/24 1220 Assessment / Impression: Met with patient at bedside. She reported good appetite and PO intake. Recommend weekly weights. RD will continue to monitor. Marge Castro MS, RD, [facility], LD Cell OGRAPH EDITOR * Anastasia Plaza MD - 09/07/2024 6:27 [...] BP: (117-173)/(71-96) 120/71 FHR: reactive NST x2 [place]: no regular contractions Physical Exam General: No [...] Sara Eng MD at 09/07/2024 9:34 AM PHOTOGRAPH EDITOR OGRAPH EDITOR OGRAPH EDITOR Associated attestation - Sara Eng MD - 09/07/2024 9:34 AM PHOTOGRAPH EDITOR I have seen and examined the patient [...] Rey Quinonez MD Obstetrics and Gynecology, PGY-2 OGRAPH EDITOR * Anastasia Plaza MD - 09/06/2024 7:23 [...] BP: (125-147)/(81-95) 128/87 FHR: reactive NST x2 [place]: no regular contractions Physical Exam General: No [...] Sara Eng MD at 09/06/2024 11:17 AM PHOTOGRAPH EDITOR OGRAPH EDITOR OGRAPH EDITOR Associated attestation - Sara Eng MD - 09/06/2024 11:17 AM PHOTOGRAPH EDITOR I have seen and examined the patient [...] gas cards SW remains available. ARACELIS Tyler, STEAMFITTER APPRENTICE [facility] Clinical Drafter [facility] OGRAPH EDITOR * Rey Quinonez MD - 09/05/2024 7:11 [...] BP: (125-156)/(78-99) 125/86 FHR: reactive NST x2 [place]: no regular contractions Physical Exam General: No [...] Sara Eng MD at 09/05/2024 9:05 AM PHOTOGRAPH EDITOR OGRAPH EDITOR OGRAPH EDITOR Associated attestation - Sara Eng MD - 09/05/2024 9:05 AM PHOTOGRAPH EDITOR I have seen and examined the patient [...] BP: (127-141)/(78-90) 127/90 FHR: reactive NST x2 [place]: no regular contractions Physical Exam General: No [...] have edited where appropriate. Josefina Peter MD OGRAPH EDITOR OGRAPH EDITOR * Josefina Peter MD - 09/03/2024 7:07 [...] BP: (127-156)/(69-111) 132/88 FHR: reactive NST x2 [place]: no regular contractions Physical Exam General: No [...] have edited where appropriate. Josefina Peter MD OGRAPH EDITOR OGRAPH EDITOR * Nini Melendez MD - 09/02/2024 10:59 AM CST R2 Update: Patient persistently MR, will give additional 30 mg NXL now and increase to 120 mg NXL tomorrow AM. Ashley Melendez MD MPH PGY2 OBGYN OGRAPH EDITOR * Maureen Claix MD - 09/02/2024 7:13 AM CST Antepartum [...] BP: (125-141)/(60-94) 125/60 FHR: reactive NST x2 [place]: no regular contractions Physical Exam General: No [...] Jessica Naranjo MD at 09/02/2024 9:53 AM PHOTOGRAPH EDITOR OGRAPH EDITOR OGRAPH EDITOR Associated attestation - Jessica Naranjo MD - 09/02/2024 9:53 AM PHOTOGRAPH EDITOR Images from the original note were not [...] Asymptomatic. Continue inpatient management. Jessica Naranjo MD Plastic Battery Assembler Division of Maternal- Medicine and Ultrasound Department of Obstetrics and Gynecology [facility] 09/02/2024 * Maureen Cailx MD - 09/01/2024 7:19 AM CST Antepartum [...] BP: (126-139)/(84-103) 131/91 FHR: reactive NST x2 [place]: no regular contractions Physical Exam General: No [...] Jessica Naranjo MD at 09/01/2024 9:34 AM PHOTOGRAPH EDITOR OGRAPH EDITOR OGRAPH EDITOR Associated attestation - Jessica Naranjo MD - 09/01/2024 9:34 AM PHOTOGRAPH EDITOR Images from the original note were not [...] Asymptomatic. Continue inpatient management. Jessica Naranjo MD Plastic Battery Assembler Division of Maternal- Medicine and Ultrasound Department of Obstetrics and Gynecology [facility] 09/01/2024 * Maggi Huang, LEO - 08/31/2024 [...] for pt's to travel between home and [facility] to provide support. SW remains available. Maggi Huang MSW, STEAMFITTER APPRENTICE Social Work OGRAPH EDITOR * Anastasia Plaza MD - 08/31/2024 6:46 [...] BP: (118-140)/(69-94) 140/94 FHR: reactive NST x2 [place]: no regular contractions Physical Exam General: No [...] Nini Cortez MD at 08/31/2024 12:26 PM PHOTOGRAPH EDITOR OGRAPH EDITOR OGRAPH EDITOR Associated attestation - Nini Cortez MD - 08/31/2024 12:26 PM PHOTOGRAPH EDITOR MFM Attending Attestation I have seen and [...] BP: (132-137)/(75-92) 132/83 FHR: reactive NST x2 [place]: no regular contractions Physical Exam General: No [...] Nini Cortez MD at 08/30/2024 11:35 AM PHOTOGRAPH EDITOR OGRAPH EDITOR OGRAPH EDITOR Associated attestation - Nini Cortez MD - 08/30/2024 11:35 AM PHOTOGRAPH EDITOR MFM Attending Attestation I have seen and [...] BP: (123-145)/(75-92) 123/75 FHR: reactive NST x2 [place]: no regular contractions Physical Exam General: No [...] Nini Cortez MD at 08/29/2024 9:11 AM PHOTOGRAPH EDITOR OGRAPH EDITOR OGRAPH EDITOR Associated attestation - Nini Cortez MD - 08/29/2024 9:11 AM PHOTOGRAPH EDITOR MFM Attending Attestation I have seen and [...] Meena Khalil MD PGY-2 Obstetrics & Gynecology OGRAPH EDITOR * Anastasia Plaza MD - 08/28/2024 6:26 [...] BP: (130-135)/(84-97) 135/86 FHR: reactive NST x2 [place]: no regular contractions Physical Exam General: No [...] Kaela Mcallister MD at 08/28/2024 7:37 AM PHOTOGRAPH EDITOR OGRAPH EDITOR OGRAPH EDITOR Associated attestation - Kaela Mcallister MD - 08/28/2024 7:37 AM PHOTOGRAPH EDITOR I have seen and examined the patient [...] BP: (125-135)/(69-93) 127/84 FHR: reactive NST x2 [place]: no regular contractions Physical Exam General: No [...] Kaela Mcallister MD at 08/27/2024 8:46 AM PHOTOGRAPH EDITOR OGRAPH EDITOR OGRAPH EDITOR Associated attestation - Kaela Mcallister MD - 08/27/2024 8:46 AM PHOTOGRAPH EDITOR I have seen and examined the patient [...] BP: (124-138)/(74-92) 127/82 FHR: reactive NST x2 [place]: no regular contractions Physical Exam General: No [...] Byron Lakhani MD at 08/26/2024 1:03 PM PHOTOGRAPH EDITOR OGRAPH EDITOR OGRAPH EDITOR Associated attestation - Byron Lakhani MD - 08/26/2024 1:03 PM PHOTOGRAPH EDITOR I have seen and examined the patient [...] BP: (129-139)/(81-90) 130/90 FHR: reactive NST x2 [place]: no regular contractions Physical Exam General: No [...] Byron Lakhani MD at 08/25/2024 10:24 AM PHOTOGRAPH EDITOR OGRAPH EDITOR OGRAPH EDITOR Associated attestation - Byron Lakhani MD - 08/25/2024 10:24 AM PHOTOGRAPH EDITOR I have seen and examined the patient [...] BP: (129-142)/(79-95) 139/84 FHR: reactive NST x2 [place]: no regular contractions Physical Exam General: No [...] through Thursday 8a-7p APU R2 (first call) [phone] APU R3 (chief) [phone] Evenings 7p-8am Weekend Thursday 6pm through Thursday 8am Labor R2 (first call) [phone] Labor R4 (chief) [phone] Cosigned by Byron Lakhani MD at 08/24/2024 9:37 AM PHOTOGRAPH EDITOR OGRAPH EDITOR OGRAPH EDITOR Associated attestation - Byron Lakhani MD - 08/24/2024 9:37 AM PHOTOGRAPH EDITOR I have seen and examined the patient [...] BP: (128-139)/(78-90) 128/84 FHR: reactive NST x2 [place]: no regular contractions Physical Exam General: No [...] through Thursday 8a-7p APU R2 (first call) [phone] APU R3 (chief) [phone] Evenings 7p-8am Weekend Thursday 6pm through Thursday 8am Labor R2 (first call) [phone] Labor R4 (chief) [phone] Cosigned by Byron Lakhani MD at 08/23/2024 9:19 AM PHOTOGRAPH EDITOR OGRAPH EDITOR OGRAPH EDITOR Associated attestation - Byron Lakhani MD - 08/23/2024 9:19 AM PHOTOGRAPH EDITOR I have seen and examined the patient [...] Adult Diet Regular Diet effective now Question: ([facility]) Diet type Answer: Regular 07/29/24 1220 Assessment / Impression: Met with patient at bedside. She reported good appetite and PO intake. Recommend weekly weights. RD will continue to monitor. Marge Castro MS, RD, [facility], Cell OGRAPH EDITOR * Millie Pierce LCSW - 08/22/2024 10:18 [...] IOL 09/19 SW remains available. ARACELIS Tyler, ELO [facility] Clinical Drafter [facility] OGRAPH EDITOR * Anastasia Plaza MD - 08/22/2024 7:18 [...] BP: (126-141)/(81-89) 134/89 FHR: reactive NST x2 [place]: no regular contractions Physical Exam General: No [...] MOC: nexplanon - AC: BID lovenox Anastasia Plzaa MD 08/22/24 Antepartum Service Coverage Thursday through Thursday 8a-7p APU R2 (first call) [phone] APU R3 (chief) [phone] Evenings 7p-8am Weekend Thursday 6pm through Thursday 8am Labor R2 (first call) [phone] Labor R4 (chief) [phone] Cosigned by Byron Lakhani MD at 08/22/2024 9:45 AM PHOTOGRAPH EDITOR OGRAPH EDITOR OGRAPH EDITOR Associated attestation - Byorn Lakhani MD - 08/22/2024 9:45 AM PHOTOGRAPH EDITOR I have seen and examined the patient [...] BP: (131-138)/(84-91) 131/84 FHR: reactive NST x2 [place]: no regular contractions Physical Exam General: No [...] through Thursday 8a-7p APU R2 (first call) [phone] APU R3 (chief) [phone] Evenings 7p-8am Weekend Thursday 6pm through Thursday 8am Labor R2 (first call) [phone] Labor R4 (chief) [phone] Cosigned by Libby Berman MD at 08/21/2024 9:27 AM PHOTOGRAPH EDITOR OGRAPH EDITOR OGRAPH EDITOR Associated attestation - Libby Berman MD - 08/21/2024 9:27 AM PHOTOGRAPH EDITOR I have seen and examined the patient [...] BP: (127-140)/(80-88) 140/88 FHR: reactive NST x2 [place]: no regular contractions Physical Exam General: No [...] through Thursday 8a-7p APU R2 (first call) [phone] APU R3 (chief) [phone] Evenings 7p-8am Weekend Thursday 6pm through Thursday 8am Labor R2 (first call) [phone] Labor R4 (chief) [phone] Cosigned by Leticia Barillas MD at 08/20/2024 7:16 AM PHOTOGRAPH EDITOR OGRAPH EDITOR OGRAPH EDITOR Associated attestation - Leticia Barillas MD - 08/20/2024 7:16 AM PHOTOGRAPH EDITOR I have personally seen and evaluated the [...] BP: (127-139)/(82-96) 127/82 FHR: reactive NST x2 [place]: no regular contractions Physical Exam General: No [...] through Thursday 8a-7p APU R2 (first call) [phone] APU R3 (chief) [phone] Evenings 7p-8am Weekend Thursday 6pm through Thursday 8am Labor R2 (first call) [phone] Labor R4 (chief) [phone] Cosigned by Leticia Barillas MD at 08/19/2024 9:49 AM PHOTOGRAPH EDITOR OGRAPH EDITOR OGRAPH EDITOR Associated attestation - Leticia Barillas MD - 08/19/2024 9:49 AM PHOTOGRAPH EDITOR I have personally seen and evaluated the [...] BP: (124-141)/(73-83) 124/81 FHR: reactive NST x2 [place]: no regular contractions Physical Exam General: No [...] through Thursday 8a-7p APU R2 (first call) [phone] APU R3 (chief) [phone] Evenings 7p-8am Weekend Thursday 6pm through Thursday 8am Labor R2 (first call) [phone] Labor R4 (chief) [phone] Cosigned by Leticia Barillas MD at 08/18/2024 5:08 PM PHOTOGRAPH EDITOR OGRAPH EDITOR OGRAPH EDITOR Associated attestation - Leticia Barillas MD - 08/18/2024 5:08 PM PHOTOGRAPH EDITOR I have personally seen and evaluated the [...] BP: (122-131)/(77-83) 131/77 FHR: reactive NST x2 [place]: no regular contractions Physical Exam General: No [...] through Thursday 8a-7p APU R2 (first call) [phone] APU R3 (chief) [phone] Evenings 7p-8am Weekend Thursday 6pm through Thursday 8am Labor R2 (first call) [phone] Labor R4 (chief) [phone] Cosigned by Leticia Barillas MD at 08/17/2024 8:25 AM PHOTOGRAPH EDITOR OGRAPH EDITOR OGRAPH EDITOR Associated attestation - Leticia Barillas MD - 08/17/2024 8:25 AM PHOTOGRAPH EDITOR I have personally seen and evaluated the [...] BP: (132-141)/(77-90) 132/78 FHR: reactive NST x2 [place]: no regular contractions Physical Exam General: No [...] through Thursday 8a-7p APU R2 (first call) [phone] APU R3 (chief) [phone] Evenings 7p-8am Weekend Lg 6pm through Thursday 8am Labor R2 (first call) [phone] Labor R4 (chief) [phone] Cosigned by Leticia Barillas MD at 08/16/2024 9:45 AM PHOTOGRAPH EDITOR OGRAPH EDITOR OGRAPH EDITOR Associated attestation - Leticia Barillas MD - 08/16/2024 9:45 AM PHOTOGRAPH EDITOR I have personally seen and evaluated the [...] delivery SW remains available. ARACELIS Tyler, LEO [facility] Clinical Drafter [facility] OGRAPH EDITOR * Anastasia Plaza MD - 08/15/2024 7:17 [...] BP: (117-137)/(69-90) 131/85 FHR: reactive NST x2 [place]: no regular contractions Physical Exam General: No [...] through Thursday 8a-7p APU R2 (first call) [phone] APU R3 (chief) [phone] Evenings 7p-8am Weekend Thursday 6pm through Thursday 8am Labor R2 (first call) [phone] Labor R4 (chief) [phone] Cosigned by Leticia Barillas MD at 08/15/2024 8:57 AM PHOTOGRAPH EDITOR OGRAPH EDITOR OGRAPH EDITOR Associated attestation - Leticia Barillas MD - 08/15/2024 8:57 AM PHOTOGRAPH EDITOR I have personally seen and evaluated the [...] BP: (125-130)/(76-85) 128/85 FHR: reactive NST x2 [place]: no regular contractions Physical Exam General: No [...] through Thursday 8a-7p APU R2 (first call) [phone] APU R3 (chief) [phone] Evenings 7p-8am Weekend Thursday 6pm through Thursday 8am Labor R2 (first call) [phone] Labor R4 (chief) [phone] Cosigned by Nini Knapp MD at 08/14/2024 7:19 AM PHOTOGRAPH EDITOR OGRAPH EDITOR OGRAPH EDITOR Associated attestation - Nini Knapp MD - 08/14/2024 7:19 AM PHOTOGRAPH EDITOR I have seen and examined the patient on 08/14/24. I agree with the findings and plan of care as documented in the resident's/fellow's note. Some new ear pain without other URI sypmtoms- will perform exam. * Nini Knapp MD - 08/13/2024 9:35 AM CST err OGRAPH EDITOR * Mariela Dyson MD - 08/13/2024 7:19 [...] BP: (121-139)/(73-85) 129/82 FHR: reactive NST x2 [place]: no regular contractions Physical Exam General: No [...] through Thursday 8a-7p APU R2 (first call) [phone] APU R3 (chief) [phone] Evenings 7p-8am Weekend Thursday 6pm through Thursday 8am Labor R2 (first call) [phone] Labor R4 (chief) [phone] Cosigned by Nini Knapp MD at 08/14/2024 7:15 AM PHOTOGRAPH EDITOR OGRAPH EDITOR OGRAPH EDITOR Associated attestation - Nini Knapp MD - 08/14/2024 7:15 AM PHOTOGRAPH EDITOR I have seen and examined the patient [...] BP: (123-137)/(77-89) 131/79 FHR: reactive NST x2 [place]: no regular contractions Physical Exam General: No [...] through Thursday 8a-7p APU R2 (first call) [phone] APU R3 (chief) [phone] Evenings 7p-8am Weekend Thursday 6pm through Thursday 8am Labor R2 (first call) [phone] Labor R4 (chief) [phone] Cosigned by Byron Lakhani MD at 08/12/2024 10:13 AM PHOTOGRAPH EDITOR OGRAPH EDITOR OGRAPH EDITOR Associated attestation - Byron Lakhani MD - 08/12/2024 10:13 AM PHOTOGRAPH EDITOR I have seen and examined the patient [...] BP: (126-140)/(68-92) 140/84 FHR: reactive NST x2 [place]: no regular contractions Physical Exam General: No [...] through Thursday 8a-7p APU R2 (first call) [phone] APU R3 (chief) [phone] Evenings 7p-8am Weekend Thursday 6pm through Thursday 8am Labor R2 (first call) [phone] Labor R4 (chief) [phone] Cosigned by Byron Lakhani MD at 08/11/2024 9:19 AM PHOTOGRAPH EDITOR OGRAPH EDITOR OGRAPH EDITOR Associated attestation - Byron Lakhani MD - 08/11/2024 9:19 AM PHOTOGRAPH EDITOR I have seen and examined the patient [...] BP: (127-138)/(67-90) 135/71 FHR: reactive NST x2 [place]: no regular contractions Physical Exam General: No [...] through Thursday 8a-7p APU R2 (first call) [phone] APU R3 (chief) [phone] Evenings 7p-8am Weekend Thursday 6pm through Thursday 8am Labor R2 (first call) [phone] Labor R4 (chief) [phone] Cosigned by Byron Lakhani MD at 08/10/2024 8:54 AM PHOTOGRAPH EDITOR OGRAPH EDITOR OGRAPH EDITOR Associated attestation - Byron Lakhani MD - 08/10/2024 8:54 AM PHOTOGRAPH EDITOR I have seen and examined the patient [...] BP: (123-146)/(77-90) 128/79 FHR: reactive NST x2 [place]: no regular contractions Physical Exam General: No acute distress. Appears stated age and cooperative. Lungs: Non-labored. Abdomen: Soft, non-tender, gravid. Extremities: Warm and well-perfused. No bilateral lower extremity calf tenderness. Trace non pitting lower extremity edema Pelvic: Deferred. Neurologic: Alert and oriented x4, non-focal Lab Review: No results found for this or any previous visit (from the past 24 hours). ASSESSMENT/PLAN Suki Leno is a 29 y.o. at 28w1d admitted [...] through Thursday 8a-7p APU R2 (first call) [phone] APU R3 (chief) [phone] Evenings 7p-8am Weekend Thursday 6pm through Thursday 8am Labor R2 (first call) [phone] Labor R4 (chief) [phone] Cosigned by Byron Lakhani MD at 08/09/2024 10:16 AM PHOTOGRAPH EDITOR OGRAPH EDITOR OGRAPH EDITOR OGRAPH EDITOR Associated attestation - Byron Lakhani MD - 08/09/2024 10:16 AM PHOTOGRAPH EDITOR I have seen and examined the patient on 08/09/24. I agree with the findings and plan of care as documented in the resident's/fellow's note.. * Carola Murphy - 08/08/2024 2:43 PM CST Chaplain Carola Murphy [facility] Spiritual Care Triage: [phone] 08/08/24 1400 Time Spent Start Time 1410 Stop Time 1420 Time Calculation (min) 10 min Patient Spiritual Assessment Spirituality Assessed Focus of Care Clinical Encounter Type Visited With Patient Response Type Routine visit Routine Visit Introduction Reason for visit Support Outcomes and Progress Demonstrating care and respect Achieved Interventions Interventions Offer emotional support;Offer spiritual/yazdanism support OGRAPH EDITOR * Millie Pierce LCSW - 08/08/2024 11:43 [...] social needs. SW remains available. ARACELIS Tyler, STEAMFITTER APPRENTICE [facility] Clinical Drafter [facility] OGRAPH EDITOR * Maureen Calix MD - 08/08/2024 6:36 [...] BP: (133-149)/(74-91) 134/74 FHR: reactive NST x2 [place]: no regular contractions Physical Exam General: No [...] Byron Lakhani MD at 08/08/2024 9:57 AM PHOTOGRAPH EDITOR OGRAPH EDITOR OGRAPH EDITOR Associated attestation - Byron Lakhani MD - 08/08/2024 9:57 AM PHOTOGRAPH EDITOR I have seen and examined the patient on 08/08/24. I agree with the findings and plan of care as documented in the resident's/fellow's note.. 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 thermal surfacing machine operator availability) * Mariela Dyson MD - 08/07/2024 [...] BP: (129-142)/(77-82) 129/78 FHR: reactive NST x2 [place]: no regular contractions Physical Exam General: No [...] Eve Jenkins MD at 08/07/2024 7:23 AM PHOTOGRAPH EDITOR OGRAPH EDITOR OGRAPH EDITOR Associated attestation - Eve Jenkins MD - 08/07/2024 7:23 AM PHOTOGRAPH EDITOR Attending Attestation I have seen, examined, and [...] BP: (115-138)/(67-90) 115/67 FHR: reactive NST x2 [place]: no regular contractions Physical Exam General: No [...] Adult Diet Regular Diet effective now Question: ([facility]) Diet type Answer: Regular 07/29/24 1220 Assessment / Impression: Met with patient at bedside. She reported good appetite and PO intake. Shereports pre- weight of 260#. Currently 284# as of 08/04. She is tolerating PNV. No nutrition needs identified at this time. RD will continue to monitor. Marge Castro MS, RD, [facility], Cell * Marge Conrad, - 08/05/2024 12:03 [...] future transfusions. Contact Information: Please contact the [facility] Transfusion Medicine Service at (option 1) [...] bank report. Pam Lr MD PhD * [facility] - 08/05/2024 7:17 AM [...] BP: (132-144)/(77-94) 132/78 FHR: reactive NST x2 [place]: no regular contractions Physical Exam General: No [...] EKG/Min 110 BPM Atrial Rate 110 BPM OR-Interval (MSEC) 122 ms QRS-Interval (MSEC) 78 ms QT-Interval (MSEC) 334 ms QTc 452 ms P [place] 52 degrees R [place] 5 degrees T [place] 25 degrees Diagnosis Sinus tachycardia Otherwise normal ECG No previous ECGs available Confirmed by SAMANTA KAPLAN M.D ([id number]) on 08/04/2024 1:23:30 PM D-dimer, quantitative Collection Time: 08/04/24 6:28 PM Result Value Ref Range D-Dimer 1,101 (H) <=499 ng/mL [facility] Respiratory pathogen panel Nasopharyngeal Collection Time: 08/04/24 [...] on nifedipine 90mg qD. Jessica Naranjo MD Plastic Battery Assembler Division of Maternal- Medicine and Ultrasound Department of Obstetrics and Gynecology [facility] 08/05/2024 * Sue Meza MD [...] BP: (122-139)/(72-85) 128/76 FHR: reactive NST x2 [place]: no regular contractions Physical Exam General: No [...] complete anatomic survey with particular focus on PAINTER MAINTENANCE anatomy of twin A today. Jessica Naranjo MD Plastic Battery Assembler Division of Maternal- Medicine and Ultrasound Department of Obstetrics and Gynecology [facility] 08/04/2024 * Maureen Calix MD - 08/03/2024 [...] BP: (128-143)/(77-98) 137/84 FHR: reactive NST x2 [place]: no regular contractions Physical Exam General: No [...] XL 90 mg qD. Jessica Naranjo MD Plastic Battery Assembler Division of Maternal- Medicine and Ultrasound Department of Obstetrics and Gynecology [facility] 08/03/2024 * Maureen Calix MD - 08/02/2024 [...] BP: (128-143)/(73-89) 128/84 FHR: reactive NST x2 [place]: no regular contractions Physical Exam General: No [...] for MCDA twin . Jessica Naranjo MD Plastic Battery Assembler Division of Maternal- Medicine and Ultrasound Department of Obstetrics and Gynecology [facility] 08/02/2024 * Millie Pierce LCSW - 08/01/2024 [...] delivery. SW remains available. ARACELIS Tyler, LEO [facility] Clinical Drafter [facility] * Maureen Calix [...] x2 rare age appropriate variables, limited discontinuity [place]: no regular contractions Physical Exam General: No [...] of a preeclampsia headache. Jessica Naranjo MD Plastic Battery Assembler Division of Maternal- Medicine and Ultrasound Department of Obstetrics and Gynecology [facility] in [employer] [facility] 08/01/2024 * Maureen Calix [...] variables with 1 hour reassuring monitoring afterwards [place]: no regular contractions Physical Exam General: No [...] normotensive to mild range on arrival to [facility] since transfer - Will give APAP [...] stopped Mag due to stable BPs, started [id number] - normotensive to infrequent MR BPs SUBJECTIVE [...] BMI 47.26 kg/m?? FHR: reactive NST x2 [place]: no regular contractions Physical Exam General: No [...] normotensive to mild range on arrival to [facility] since transfer - Will give APAP [...] Estimated Date of Delivery: 10/31/24 HPI: Suki Leno is a 29 y.o. female at 26w4d [...] [facility]. [facility]/95 > 166/89. She received IV Labetalol 20 mg and BPs subsequently improved to mild range. She was given 4g Mg bolus > 2g/hr and BMZ x1 prior to transfer. On arrival to [facility] patient reports headache/ blurred vision is markedly improved. Denies RUQ pain, n/v, CTX, VB, LOF. Patient has received consistent care from [facility] Antepartum History: Her has been complicated by Shay twins, new preeclampsia with SF, Rh neg, MO, VZV NI, anxiety/dep. 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 Nexplanon placed without complication per last code striper's guidelines in the left upper arm. Bandaid placed with pressure dressing. Provider palpated Nexplanon device in place. Patient was able to palpate Nexplanon device. Impression and Plan: -Nexplanon placed without complication. Abigail Alberto MD 09/20/2024 Expiration 07/2026 Lot number [id number] OGRAPH EDITOR * Francisca Yun MD - 09/18/2024 12:45 PM CST 29 y.o. at 33w6d Time on monitor: 6089-5154 Fetus A FHR Baseline: 120 Variability: moderate [...] Sandra Christy MD at 09/19/2024 3:20 PM PHOTOGRAPH EDITOR OGRAPH EDITOR OGRAPH EDITOR OGRAPH EDITOR * Joellen Schilling MD - 09/17/2024 2:58 PM CSTAssociated Order(s): nonstress test Pre-Procedure Diagnose(s): Preeclampsia, unspecified trimester; 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 Post-Procedure Diagnose(s): Preeclampsia, unspecified trimester; 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 nonstress test Date/Time: 09/17/2024 2:58 PM Performed by: Maureen Calix MD Authorized by: Ana M Rogers MD 29 y.o. at 33w5d Time on monitor: 3623-1855 Fetus A FHR Baseline: 125 Variability: moderate [...] Sandra Christy MD at 09/18/2024 9:19 AM PHOTOGRAPH EDITOR OGRAPH EDITOR OGRAPH EDITOR OGRAPH EDITOR * Joellen Schilling MD - 09/16/2024 2:44 [...] Sandra Christy MD at 09/16/2024 2:51 PM PHOTOGRAPH EDITOR OGRAPH EDITOR OGRAPH EDITOR Associated attestation - Sandra Christy MD - 09/16/2024 2:51 PM PHOTOGRAPH EDITOR I have reviewed the tracing and the interpretation. I agree with the findings. Sandra Christy MD [place] Maternal- Medicine * Joellen Schilling MD - [...] NST Joellen Schilling MD Maternal- Medicine Fellow OGRAPH EDITOR * Anastasia Plaza MD - 09/14/2024 5:08 [...] Sandra Christy MD at 09/14/2024 7:29 PM PHOTOGRAPH EDITOR OGRAPH EDITOR OGRAPH EDITOR Associated attestation - Sandra Christy MD - 09/14/2024 7:29 PM PHOTOGRAPH EDITOR I have reviewed the tracing and the interpretation. I agree with the findings. Sandra Christy MD [place] Maternal- Medicine * Avery Veloz MD - 09/13/2024 5:13 PM CST Procedures NST Progress Note 29 y.o. at 33w1d admitted for PreEwSF Time on monitor: 1850-7038 Twin A: FHR Baseline: 125bpm Variability: moderate [...] Sandra Christy MD at 09/14/2024 7:28 PM PHOTOGRAPH EDITOR OGRAPH EDITOR OGRAPH EDITOR OGRAPH EDITOR * Anastasia Plaza MD - 09/13/2024 5:10 [...] Sandra Christy MD at 09/14/2024 7:28 PM PHOTOGRAPH EDITOR OGRAPH EDITOR OGRAPH EDITOR Associated attestation - Sandra Christy MD - 09/14/2024 7:28 PM PHOTOGRAPH EDITOR I have reviewed the tracing and the interpretation. I agree with the findings. Sandra Christy MD MS Maternal- Medicine * Rey Quinonez MD - 09/12/2024 4:51 PM CST Procedures NST Progress Note 29 y.o. at 33w0d admitted for PreEwSF Time on monitor: 2496-2044 Twin A: FHR Baseline: 125 Variability: moderate Accelerations: present Decelerations: none Twin B: FHR Baseline: 130 Variability: moderate Accelerations: present Decelerations: none Contractions: absent Reactive: Yes Comments: reactive and reassuring Instructed RN that patient can be taken off the monitor. Rey Quinonez MD Cosigned by Sandra Christy MD at 09/13/2024 5:07 PM PHOTOGRAPH EDITOR OGRAPH EDITOR OGRAPH EDITOR Associated attestation - Sandra Christy MD - 09/13/2024 5:07 PM PHOTOGRAPH EDITOR I have reviewed the tracing and the interpretation. I agree with the findings. Sandra Christy MD MS Maternal- Medicine * Judi Huang MD - 09/11/2024 2:39 PM CST Procedures 29 y.o. at 32w6d Time on monitor: 0517-7924 Fetus A FHR Baseline: 125 Variability: moderate Reactive: Yes Decelerations: none Fetus B FHR Baseline: 135 Variability: moderate Reactive: Yes Decelerations: none Contractions: absent Comments: reactive and reassuring I have reviewed NST and instructed RN to take off monitor Judi Huang MD Cosigned by Sara Eng MD at 09/11/2024 4:07 PM PHOTOGRAPH EDITOR OGRAPH EDITOR OGRAPH EDITOR Associated attestation - Sara Eng MD - 09/11/2024 4:07 PM PHOTOGRAPH EDITOR Attending Attestation - nonstress test I have reviewed the NST of Suki Leon myself. I agree with the interpretation as documented in the resident???s note. Sara Eng MD 09/11/2024 * Mariela Dyson MD - 09/10/2024 2:42 PM CST Procedures 29 y.o. at 32w5d Time on monitor: 1823-4095 Fetus A FHR Baseline: 120 Variability: moderate Reactive: Yes Decelerations: none Fetus B FHR Baseline: 130 Variability: moderate Reactive: Yes Decelerations: none Contractions: absent Comments: reactive and reassuring I have reviewed NST and instructed RN to take off monitor Mariela Voss MD Cosigned by Nini Cortez MD at 09/10/2024 3:14 PM PHOTOGRAPH EDITOR OGRAPH EDITOR OGRAPH EDITOR Associated attestation - Nini Cortez MD - 09/10/2024 3:14 PM PHOTOGRAPH EDITOR I have independently reviewed the NSTx2 and agree with the documentation. Nini Cortez MD 09/10/2024 * Sara Eng MD - 09/09/2024 1:33 PM CST Procedures Electronic Monitoring/Non-Stress Test Date: 09/09/2024 Time: 7819-6125 Suki Leon is a 29 y.o. female [...] the resident???s note. Sara Eng MD 09/09/2024 OGRAPH EDITOR * Sara Eng MD - 09/08/2024 2:22 PM CST Electronic Monitoring/Non-Stress Test Date: 09/08/2024 Time: 7371-4506 Suki Leon is a 29 y.o. female [...] the resident???s note. Sara Eng MD 09/08/2024 OGRAPH EDITOR * Sara Eng MD - 09/08/2024 1:39 PM CST Procedures Electronic Monitoring/Non-Stress Test Date: 09/08/2024 Time: 6031-8711 Suki Leon is a 29 y.o. female [...] RN to take off monitor CORBY Ashton OGRAPH EDITOR OGRAPH EDITOR * Sara Eng MD - 09/08/2024 12:09 [...] the resident???s note. Sara Eng MD 09/08/2024 OGRAPH EDITOR * Millicent Duran NP - 09/07/2024 12:17 PM CST Procedures Electronic Monitoring/Non-Stress Test Date: 09/07/2024 Time: 9426-3656 Suki Leon is a 29 y.o. female [...] Sara Eng MD at 09/08/2024 12:09 PM PHOTOGRAPH EDITOR OGRAPH EDITOR OGRAPH EDITOR * Pauline Simms MD - 09/06/2024 8:38 PM CSTAssociated Order(s): NONSTRESS TEST Baby A FHR Baseline: 125 Variability: moderate Accelerations: absent Decelerations: absent in last part of tracing, was initially having small variable decels in monitoring Reactive: Yes Baby B FHR Baseline: 130 Variability: moderate Accelerations: present Decelerations: absent Reactive: Yes 29 y.o. at 32w1d a/f preeclampsia with SF On monitor 8039-3824 Contractions: absent I have reviewed NST and instructed RN to take off monitor Pauline Simms MD Cosigned by Anastasia Amaro MD at 09/07/2024 7:29 AM PHOTOGRAPH EDITOR OGRAPH EDITOR OGRAPH EDITOR Associated attestation - Anastasia Amaro MD - 09/07/2024 7:29 AM PHOTOGRAPH EDITOR Attending Attestation - nonstress test I have reviewed the NST of Suki Leon myself. I agree with the interpretation as documented in the resident???s note. Anastasia Amaro MD 09/07/2024 * Sara Eng MD - 09/05/2024 4:21 PM CST Procedures NONSTRESS TEST Suki Leon is a 29 y.o. here today at 32.0 weeks gestation in the setting of preeclampsia. Time Monitored: 8249-5025 FHR Baseline: A: 135 B:135 Variability: A: mod B: mod Accelerations: A: present B: present Decelerations: A: absent B: absent Contractions: Pt reports feeling no UC; rare UC noted by toco; abdomen soft to palpation Reactive: Yes MFM Fellow Attestation I have reviewed the tracing and agree with the interpretation as above. NST reactive and reassuring. Sara Eng MD OGRAPH EDITOR * Sara Eng MD - 09/05/2024 3:53 PM CST Procedures NONSTRESS TEST Suki Leon is a 29 y.o. here today at 32.0 weeks gestation in the setting of preeclampsia. Time Monitored: 2730-1301 FHR Baseline: A: 135 B:135 Variability: A: mod B: mod Accelerations: A: present B: present Decelerations: A: absent B: absent Contractions: Pt reports feeling no UC; rare UC noted by toco; abdomen soft to palpation Reactive: Yes I have reviewed the NST. Tash Mathew CNM OGRAPH EDITOR OGRAPH EDITOR * Joellen Julio MD - 09/04/2024 12:14 [...] and reassuring NSTs x2. Joellen Julio MD OGRAPH EDITOR OGRAPH EDITOR * Joellen Schilling MD - 09/03/2024 11:34 AM CST 29 y.o. at 31w5d Time on monitor: 6171-5126 Fetus A FHR Baseline: 120 Variability: moderate [...] Josefina Peter MD at 09/09/2024 1:38 AM PHOTOGRAPH EDITOR OGRAPH EDITOR OGRAPH EDITOR OGRAPH EDITOR * Joellen Julio MD - 09/02/2024 10:59 [...] Reactive and reassuring x2. Joellen Julio MD OGRAPH EDITOR OGRAPH EDITOR * Joellen Schilling MD - 09/01/2024 4:00 [...] Jessica Naranjo MD at 09/02/2024 9:09 AM PHOTOGRAPH EDITOR OGRAPH EDITOR OGRAPH EDITOR Associated attestation - Jessica Naranjo MD - 09/02/2024 9:09 AM PHOTOGRAPH EDITOR Images from the original note were not included. MFM Attending Attestation I independently evaluated the twin NST for Suki Leon performed on 09/01/24 as documented by the fellow. I agree with the documentation. Reactive and reassuring NST for twins. Jessica Naranjo MD Plastic Battery Assembler Division of Maternal- Medicine and Ultrasound Department of Obstetrics and Gynecology [facility] * Anastasia Plaza MD - 08/31/2024 1:32 PM CST Procedures 29 y.o. at 31w2d a/f preeclampsia with SF A FHR Baseline: 130 Variability: moderate Reactive: Yes B FHR Baseline: 135 Variability: moderate Reactive: Yes Contractions: absent Comments: 12:32-13:02 I have reviewed NST and instructed RN to take off monitor Anastasia Plaza MD Cosigned by Nini Cortez MD at 08/31/2024 3:10 PM PHOTOGRAPH EDITOR OGRAPH EDITOR OGRAPH EDITOR Associated attestation - Nini Cortez MD - 08/31/2024 3:10 PM PHOTOGRAPH EDITOR I have independently reviewed the NSTx2 and agree with the documentation. Nini Cortez MD 08/31/2024 * Maureen Calix MD - 08/30/2024 2:48 PM CST Procedures 29 y.o. at 31w1d a/f preeclampsia with SF. Also with Shay twins Time on monitor: 0025-0635 Fetus A FHR Baseline: 135 Variability: moderate [...] Nini Cortez MD at 08/30/2024 4:16 PM PHOTOGRAPH EDITOR OGRAPH EDITOR OGRAPH EDITOR OGRAPH EDITOR Associated Nini Ramos MD - 08/30/2024 4:16 PM PHOTOGRAPH EDITOR I have independently reviewed the NSTx2 and [...] SF and Shay twins Time on monitor: 9728-0060 Fetus A FHR Baseline: 130 Variability: moderate Reactive: Yes Decelerations: none Fetus B FHR Baseline: 135 Variability: moderate Reactive: Yes Decelerations: none Contractions: absent Comments: reactive and reassuring NST I have reviewed NST and instructed RN to take off monitor Nadiya Calix MD PhD Obstetrics & Gynecology - PGY 2 08/29/2024 Cosigned by Nini Cortez MD at 08/29/2024 9:00 PM PHOTOGRAPH EDITOR OGRAPH EDITOR OGRAPH EDITOR Associated lindsay - Nini Cortez MD - 08/29/2024 9:00 PM PHOTOGRAPH EDITOR I have independently reviewed the NSTx2 and [...] Nini Cortez MD at 08/29/2024 10:17 AM PHOTOGRAPH EDITOR OGRAPH EDITOR OGRAPH EDITOR Associated attestation - Nini Cortez MD - 08/29/2024 10:17 AM PHOTOGRAPH EDITOR I have independently reviewed the NSTx2 and agree with the documentation. Nini Cortez MD 08/29/2024 * Natalie Botello MD - 08/27/2024 2:15 PM CST Procedures 29 y.o. at 30w5d who is admitted for PreEwSF. Time on monitor: 4129-2369 Fetus A FHR Baseline: 125>135 Variability: moderate [...] Kaela Mcallister MD at 08/28/2024 6:56 AM PHOTOGRAPH EDITOR OGRAPH EDITOR OGRAPH EDITOR OGRAPH EDITOR * Millicent Duran NP - 08/26/2024 11:13 AM CST Procedures Electronic Monitoring/Non-Stress Test Date: 08/26/2024 Time: 4102-2141 Suki Leon is a 29 y.o. female [...] Byron Lakhani MD at 08/26/2024 1:02 PM PHOTOGRAPH EDITOR OGRAPH EDITOR OGRAPH EDITOR * Millicent Duran NP - 08/25/2024 12:56 PM CST Procedures Electronic Monitoring/Non-Stress Test Date: 08/25/2024 Time: 7905-8082 Suki Leon is a 29 y.o. female [...] Byron Lakhani MD at 08/25/2024 1:43 PM PHOTOGRAPH EDITOR OGRAPH EDITOR OGRAPH EDITOR * Millicent Duran NP - 08/24/2024 12:31 PM CST Procedures Electronic Monitoring/Non-Stress Test Date: 08/24/2024 Time: 4639-5705 Suki Leno is a 29 y.o. female at 30w2d [...] Byron Lakhani MD at 08/24/2024 2:17 PM PHOTOGRAPH EDITOR OGRAPH EDITOR OGRAPH EDITOR * Millicent Duran NP - 08/23/2024 4:48 PM CST Procedures Electronic Monitoring/Non-Stress Test Date: 08/23/2024 Time: 6270-5648 Suki Leon is a 29 y.o. female [...] Byron Lakhani MD at 08/23/2024 6:03 PM PHOTOGRAPH EDITOR OGRAPH EDITOR OGRAPH EDITOR * Christiano Mathew CNM - 08/22/2024 3:25 PM CST Procedures NONSTRESS TEST Suki Leon is a 29 y.o. here today at 30.0 weeks gestation in the setting of preeclampsia with severe features and MCDA . Time Monitored: 8619-2747 FHR Baseline: A: 130 B: 135 Variability: A: mod B: mod Accelerations: A: present B: present Decelerations: A: absent B: absent Contractions: none noted on toco Reactive: Yes I have reviewed the NST. Tash Mathew CNM Cosigned by Byron Lakhani MD at 08/22/2024 4:04 PM PHOTOGRAPH EDITOR OGRAPH EDITOR OGRAPH EDITOR * Meena Khalil MD - 08/21/2024 11:40 AM CST 29 y.o. at 29w6d Time on monitor: 7784-1931 Fetus A FHR Baseline: 120 Variability: moderate Reactive: Yes Decelerations: none Fetus B FHR Baseline: 130 Variability: moderate Reactive: Yes Decelerations: none Contractions: absent Comments: Reactive NST with small areas of discontinuity, overall reassuring I have reviewed NST and instructed RN to take off monitor Meena Khalil MD PGY-2 Obstetrics & Gynecology Cosigned by Libby Berman MD at 08/21/2024 12:33 PM PHOTOGRAPH EDITOR OGRAPH EDITOR OGRAPH EDITOR Associated attestation - Libby Berman MD - 08/21/2024 12:33 PM PHOTOGRAPH EDITOR I have reviewed the NST and agree [...] negative workup thus far, patient asymptomatic on tailor women's garment alteration I have reviewed NST and instructed RN to take off monitor. Nini Skinner MD [facility] Fellow Attestation 3:29 PM 08/20/2024 I have reviewed and agree with the above documentation and interpretation of the tracing. Reactive and reassuring tracing x 2. Sue Meza MD, MPH Cosigned by Leticia Barillas MD at 08/24/2024 2:26 PM PHOTOGRAPH EDITOR OGRAPH EDITOR OGRAPH EDITOR OGRAPH EDITOR * Anastasia Plaza MD - 08/19/2024 4:36 PM CST 29 y.o. at 29w4d a/f preeclampsia with SF Procedures FHR Baseline: 125 Variability: moderate Reactive: Yes FHR Baseline: 125 Variability: moderate Reactive: Yes Contractions: absent Comments: 16:16-16:36 I have reviewed NST and instructed RN to take off monitor Anastasia Plaza MD Cosigned by Leticia Barillas MD at 08/19/2024 5:07 PM PHOTOGRAPH EDITOR OGRAPH EDITOR OGRAPH EDITOR Associated attestation - Leticia Barillas MD - 08/19/2024 5:07 PM PHOTOGRAPH EDITOR I have reviewed the NST for Twin 1 and 2 and agree with the documentation provided by the resident. Leticia Barillas MD * Avery Veloz MD - 08/18/2024 5:23 PM CST Procedures 29 y.o. at 29w3d Time on monitor: 9476-7538 Fetus A FHR Baseline: 130 Variability: moderate [...] Leticia Barillas MD at 08/19/2024 5:08 PM PHOTOGRAPH EDITOR OGRAPH EDITOR OGRAPH EDITOR OGRAPH EDITOR * Millicent Duran NP - 08/17/2024 4:18 PM CST Procedures Electronic Monitoring/Non-Stress Test Date: 08/17/2024 Time: 8411-4187 Suki Leon is a 29 y.o. female [...] Leticia Barillas MD at 08/17/2024 4:57 PM PHOTOGRAPH EDITOR OGRAPH EDITOR OGRAPH EDITOR Associated attestation - Leticia Barillas MD - 08/17/2024 4:57 PM PHOTOGRAPH EDITOR FHR Baseline: 130/130 Variability: moderate x 2 Accelerations: present x2 Decelerations: absent Contractions: absent Reactive: Yes x 2 I have reviewed the NST for Twin 1 and 2 and both reactive. Leticia Barillas MD * Millicent Duran NP - 08/16/2024 4:23 PM CST Procedures Electronic Monitoring/Non-Stress Test Date: 08/16/24 Time: 2430-7790 Suki Leon is a 29 y.o. female [...] Leticia Barillas MD at 08/17/2024 12:25 PM PHOTOGRAPH EDITOR OGRAPH EDITOR OGRAPH EDITOR * Millicent Duran NP - 08/15/2024 2:41 PM CST Procedures Electronic Monitoring/Non-Stress Test Date: 08/15/2024 Time: 7686-2959 Suki Leon is a 29 y.o. female [...] Leticia Barillas MD at 08/17/2024 12:25 PM PHOTOGRAPH EDITOR OGRAPH EDITOR OGRAPH EDITOR * Gisell Cunningham MD - 08/14/2024 12:08 PM CST Procedures NST Time: 7908-9960 Twin A FHR Baseline: 125 Variability: moderate Accels: Present x2 Decels: None Reactive: Yes Twin B FHR Baseline: 135 Variability: moderate Accels: Present Decels: None Reactive: Yes Contractions: absent Comments: Reactive and reassuring NST I have reviewed NST and instructed RN to take off monitor Gisell Cunningham MD [facility] Fellow Cosigned by Byron Lakhani MD at 08/15/2024 7:29 AM PHOTOGRAPH EDITOR OGRAPH EDITOR OGRAPH EDITOR * Selena Brooke MD - 08/13/2024 2:36 PM CST 29 y.o. female at 28w5d gestation admitted for preEwSF, Shay NST Time: 20 minutes 2020-1701 Twin A FHR Baseline: 135 Variability: moderate Decelerations: absent Reactive: Yes, 10x10 bpm Contractions: absent Comments: reactive and reassuring Twin B FHR Baseline: 135 > 140 Variability: moderate Decelerations: absent Reactive: Yes, 10x10 bpm Contractions: absent Comments: reactive and reassuring I have reviewed NST and instructed RN to take off monitor Selena Brooke MD Cosigned by Nini Knapp MD at 08/13/2024 2:46 PM PHOTOGRAPH EDITOR OGRAPH EDITOR OGRAPH EDITOR Associated attestation - Nini Knapp MD - 08/13/2024 2:46 PM PHOTOGRAPH EDITOR I have reviewed the NST and agree with the documentation provided by the resident/GROUP HOME WORKER. Nini Knapp MD * Millicent Duran NP - 08/12/2024 3:55 PM CST Procedures Electronic Monitoring/Non-Stress Test Date: 08/12/24 Time: 1776-5127 Suki Leon is a 29 y.o. female [...] Byron Lakhani MD at 08/12/2024 3:58 PM PHOTOGRAPH EDITOR OGRAPH EDITOR OGRAPH EDITOR * Millicent Duran NP - 08/11/2024 2:43 PM CST Procedures Electronic Monitoring/Non-Stress Test Date: 08/11/24 Time: 2981-1691 Suki Leon is a 29 y.o. female [...] Byron Lakhani MD at 08/11/2024 2:53 PM PHOTOGRAPH EDITOR OGRAPH EDITOR OGRAPH EDITOR * Millicent Duran NP - 08/10/2024 11:15 AM CST Procedures Electronic Monitoring/Non-Stress Test Date: 08/10/24 Time: 3529-8823 Suki Leon is a 29 y.o. female [...] Byron Lakhani MD at 08/10/2024 11:22 AM PHOTOGRAPH EDITOR OGRAPH EDITOR OGRAPH EDITOR * Mariela Dyson MD - 08/09/2024 10:27 AM CST Procedures 29 y.o. at 28w1d Time on monitor: 2960-5287 Fetus A FHR Baseline: 125 Variability: moderate Reactive: Yes Decelerations: none Fetus B FHR Baseline: 135 Variability: moderate Reactive: Yes Decelerations: none Contractions: absent Comments: reactive and reassuring x2 I have reviewed NST and instructed RN to take off monitor Mariela Voss MD Cosigned by Byron Lakhani MD at 08/09/2024 4:39 PM PHOTOGRAPH EDITOR OGRAPH EDITOR OGRAPH EDITOR Associated attestation - Byron Lakhani MD - 08/09/2024 4:39 PM PHOTOGRAPH EDITOR I have reviewed and agree with NST [...] Byron Lakhani MD at 08/08/2024 10:35 AM PHOTOGRAPH EDITOR OGRAPH EDITOR OGRAPH EDITOR Associated attestation - Byron Lakhani MD - 08/08/2024 10:35 AM PHOTOGRAPH EDITOR I have reviewed and agree with NST [...] Byron Lakhani MD at 08/08/2024 6:54 AM PHOTOGRAPH EDITOR OGRAPH EDITOR OGRAPH EDITOR OGRAPH EDITOR * Sue Rodriguez MD - 08/06/2024 1:39 [...] included. Procedures Date: 08/05/2024 Time on monitor: 1413-1556 Twin A: Baseline: 120 bpm Variability: Moderate Accelerations: Present Decelerations: Absent Twin B: Baseline: 140 bpm Variability: Moderate Accelerations: Present Decelerations: Absent Contractions: Absent Interpretation: Reactive and reassuring NST x 2 for twin . Jessica Naranjo MD Plastic Battery Assembler Division of Maternal- Medicine and Ultrasound Department of Obstetrics and Gynecology [facility] 08/05/2024 * Christiano Mathew CNM - 08/05/2024 3:28 PM CDT Procedures NONSTRESS TEST Suki Leon is a 29 y.o. here today at 27.4 weeks gestation in the setting of preeclampsia. Time: 5465-2545 FHR Baseline: A: 125 B: 145 Variability: [...] documentation for my interpretation. Jessica Naranjo MD Plastic Battery Assembler Division of Maternal- Medicine and Ultrasound Department of Obstetrics and Gynecology [facility] 08/05/2024 * Jessica Naranjo MD - 08/04/2024 4:38 PM CDT Images from the original note were not included. Procedures Date: 08/04/2024 Time on monitor: 7121-9373 Twin 1: Baseline: 135 bpm Variability: Moderate Accelerations: Present Decelerations: Absent Twin 2: Baseline: 140 bpm Variability: Moderate Accelerations: Present Decelerations: Absent Contractions: None Interpretation: Reactive and reassuring NST for both twins. Patient is appropriate to take off the monitor at this time. This note is delayed due to patient care. Jessica Naranjo MD Plastic Battery Assembler Division of Maternal- Medicine and Ultrasound Department of Obstetrics and Gynecology [facility] 08/04/2024 * Millicent Duran NP - 08/04/2024 12:26 PM CDT Procedures Electronic Monitoring/Non-Stress Test Date: 08/04/24 Time: 3416-7532 Suki Leon is a 29 y.o. female [...] NST for both twins. Jessica Naranjo MD Plastic Battery Assembler Division of Maternal- Medicine and Ultrasound Department of Obstetrics and Gynecology [facility] 08/04/2024 * Joellen Julio MD - 08/03/2024 5:21 PM CDT Procedures 29 y.o. at 27w2d Time on monitor: 2810-3820 Fetus A FHR Baseline: 130 Variability: moderate [...] NST for both twins. Jessica Naranjo MD Plastic Battery Assembler Division of Maternal- Medicine and Ultrasound Department of Obstetrics and Gynecology [facility] * Jessica Naranjo MD - 08/02/2024 12:31 PM CDT Images from the original note were not included. Procedures Date: 08/02/2024 Time on monitor: 8483-6744 Twin A Baseline: 130 bpm Variability: Moderate Accelerations: Present Decelerations: Absent Twin B Baseline: 135 bpm Variability: Moderate Accelerations: Present Decelerations: Absent Contractions: Absent Interpretation: Reactive and reassuring NST of both twins. Jessica Naranjo MD Plastic Battery Assembler Division of Maternal- Medicine and Ultrasound Department of Obstetrics and Gynecology [facility] 08/04/2024 * Millicent Duran NP - 08/02/2024 [...] NST for both twins. Jessica Naranjo MD Plastic Battery Assembler Division of Maternal- Medicine and Ultrasound Department of Obstetrics and Gynecology [facility] 08/02/2024 * Millicent Duran NP - 08/01/2024 12:04 PM CDT Procedures Electronic Monitoring/Non-Stress Test Date: 08/01/24 Time: 6193-1632 Suki Leon is a 29 y.o. female [...] for twin pregnancyat 27w0d. Jessica Naranjo MD Plastic Battery Assembler Division of Maternal- Medicine and Ultrasound Department of Obstetrics and Gynecology [facility] 08/01/2024 * Sue Meza MD - 07/31/2024 12:41 PM CDT Procedures NST Progress Note 29 y.o. at 26w6d admitted for PreEwSF Time on monitor: 8312-0032 Twin A: FHR Baseline: 130 bpm Variability: [...] Reactive and reassuring NST. Jessica Naranjo MD Plastic Battery Assembler Division of Maternal- Medicine and Ultrasound Department of Obstetrics and Gynecology [facility] 08/01/2024 * Francisca Yun MD - 07/30/2024 1:52 PM CDT 29 y.o. at 26w5d Time on monitor: 6873-2664 Fetus A FHR Baseline: 135 Variability: moderate [...] agree with the documentation provided by the resident/GROUP HOME WORKER. Nini Knapp MD * Mariela Dysno MD - 07/29/2024 11:44 AM CDT Procedures 29 y.o. at 26w4d Time on monitor: 7429-6715, prolonged monitoring Fetus A FHR Baseline: within [...] with the documentation provided. Tash Yeh MD Plastic Battery Assembler Division of Maternal- Medicine documented in this [...] and the chosen names are Jhony and Corneilo. Suki does not have experience with premature [...] appropriate questions. She has not chosen a computer numerical control grinder. Consultation Details/Neonatology Counseling: Suki Leon is a [...] 05/20/2024 LABRPR Nonreactive 07/29/2024 RUBELIGG Reactive 05/20/2024 [id number] Nonreactive 07/29/2024 Other: VZV equiv We discussed [...] acuity or blindness. The pediatric ophthalmologists are [facility] will monitor the boys at regular intervals [...] Carrol Acosta MD at 08/10/2024 1:16 PM PHOTOGRAPH EDITOR OGRAPH EDITOR OGRAPH EDITOR Associated attestation - Carrol Acosta MD - 08/10/2024 1:16 PM PHOTOGRAPH EDITOR OB INPATIENT Consult Attestation: I have reviewed [...] Carrol Acosta MD 08/10/2024 1:16 PM Attending Preparation Plant Supervisor * Macie Vickers MD - 08/03/2024 10:33 AM CDTAssociated Order(s): IP CONSULT TO PEDIATRIC CARDIOLOGY CARDIOLOGY CONSULTATION RE: Suki Leon : 1995 I had the pleasure of seeing Ms. Suki Leon in initial cardiac consultation at [facility]. Suki is a 29 y.o. female referred today for echocardiogram due to concern for possible aortic dilation. This is a mono-di . OSH ultrasound reported aortic dilation on fetus 1 designated on maternal left per US report. JERONIMO is 10/31/24, making the gestational age approximately 27+2 weeks at the time of this evaluation.She will be delivering at [facility]. She reports she is carrying a male fetuses. She is currently admitted at [facility] for pre-E with severe features. There is [...] 90 mg at 08/03/24 0857 PNV with [id number] tablet 1 tablet, 1 tablet/capsule, oral, Daily, [...] Conv) Cancer Neg Hx no colon or usability engineer cmt 04/15/24 There is no known congenital heart disease, defects, or genetic syndromes. Social History Suki is to Florentino Leon, 31. She lives in [place], [place]. 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 She denies tobacco, alcohol, or illicit drug [...] opportunity of consultation. Please contact me at [phone] with questions or concerns regarding these findings [...] replied YES. Pt stated understanding of education. OGRAPH EDITOR * Heather Abel RN - 08/12/2024 9:09 [...] medications. Patient insisted on swallowing the tablet. OGRAPH EDITOR documented in this encounter Miscellaneous Notes * [...] Alternate activity with rest; Prepare for discharge Damage Cutter Patient Centered Goal for Treatment: Safe dc home Summary: Pt adequate for discharge. OGRAPH EDITOR * Plan of Care - Soumya Teixeira RN - 09/22/2024 5:26 AM PHOTOGRAPH EDITOR Problem: General Patient Education Goal: Knowledge of [...] VS WNL, adequate pain control, adequate rest Damage Cutter Patient Centered Goal for Treatment: Safe dc home Summary: Patient is adequately progressing towards care plan goals. OGRAPH EDITOR * Note - Nini Borges RN - [...] an electric pump, Demonstrated how to use [place] breast pump when collecting colostrum, Demonstrated settings for [place] pump ( Lactognesis II), Mother return demonstration [...] when here visiting the Baby WIC Location: [place] Insurance Provider: [place] medicaid Loaner Pump Number: aware Personal Pump: hands free Comments: Attempted BF, infant too sleepy. Nuzzled at breast. Discussed breast engorgement prevention and management. Discussed plugged ducts, signs and symptoms. Reviewed when to expect mother's full milk supply, and regulation of supply. [employer] carli, as well as meal program reviewed. Discussed pumps offered through mother's insurance. Mother aware loaner pump available until her pump arrives. Support and encouragement offered. Nini Borges RN 09/21/2024 3:46 PM OGRAPH EDITOR * Plan of Care - Nancy Crooks [...] Pain control; VSS; Alternate activity with rest [facility] Patient Centered Goal for Treatment: Safe dc home Summary: Pt progressing toward plan of care goals. OGRAPH EDITOR * Plan of Care - Soumya Teixeira RN - 09/21/2024 2:54 AM PHOTOGRAPH EDITOR Problem: General Patient Education Goal: Knowledge of [...] regimen, continue to pump8-12x per day ' Damage Cutter Patient Centered Goal for Treatment: Safe dc home Summary: Patient is adequately progressing towards care plan goals. OGRAPH EDITOR * Note - Sultana Schwarz RN - 09/20/2024 8:40 AM CST Discussed importance of pumping 8-12 times daily for infants in NICU. Discussed importance of breasts massage, pumping then hand expression. Discussed pump, pump settings, how to clean all pumping parts, use rn primary care bag daily, and how to collect and store ebm and take to NICU. Mother states has a hands free pump to use after discharge; discussed to ask NICU for an electric breast pump upon discharge. Discussed care during engorgement and aware of all discharge resources. Mother shown hand expression with no drops of colostrum noted. Emotional support given. OGRAPH EDITOR * Plan of Care - Arianne Lee [...] the Shift: VSS, pain controlled, BP controlled Damage Cutter Patient Centered Goal for Treatment: safe dsicharge to home Summary: VSS, pain controlled, BP Controlled. OGRAPH EDITOR * Plan of Care - Blessing Dean [...] for the Shift: VSS; pain management; rest Damage Cutter Patient Centered Goal for Treatment: Safe discharge home Summary: Pt is progressing towards goals. OGRAPH EDITOR * Plan of Care - Ashley Michaud RN - 09/19/2024 7:41 PM PHOTOGRAPH EDITOR Goals: Clinical Goals for the Shift: Rest, VSS Damage Cutter Patient Centered Goal for Treatment: healthy mom and babies Summary: Patient resting comfortably OGRAPH EDITOR * Op Note - Rey Quinonez MD - 09/19/2024 1:30 PM CST [facility] Section Delivery Note Patient's Name: Suki Leon : 1995 Attending Physician: Josefina Peter MD Surgical Team: Surgeons and Role: * Josefina Peter MD - Primary * Anastasia Plaza MD - Resident - Assisting * Rey Quinonez MD - Resident - Assisting * Joellen Schilling MD - Fellow Clinic: [facility] Primary Diagnoses: Preeclampsia with severe features Monochorionic diamniotic twins Severe growth restriction of Twin A Aortic dilation of Twin B Lateral ventriculomegaly of Twin B Depression/anxiety Obesity Delivery method: Tiffany Leon [[id number]] [351] Nancy Leon [] [351] Anesthesia: Tiffany Leon [] Combined Spinal/Epidural [300] Nancy Leon [] Combined Spinal/Epidural [300] Membranes: Tiffany Leon [] Artificial Nancy Leon [[id number]] Artificial rupture, clear. Time ruptured prior to delivery: rupture date, rupture time, delivery date, or delivery time have not been documented Antibiotics: Ancef Delivery Date/Time: 09/19/2024 at 2:59 PM Placenta Delivery Date & Time: Tiffany Leon [[id number]] 09/19/2024 3:02 PM Nancy Leon [[id number]] 09/19/2024 3:02 PM Cord: Tiffany Leon [[id number]] 3 vessels [3] Nancy Leon [[id number]] 3 vessels [3] Delayed cord clamping: Yes, 60 seconds. For Twin B Infant: living5 lb 9.2 oz (2.53 kg)male MRN: Tiffany Leon [[id number]] [id number] Nancy Leon [[id number]] [id number] APGARs: Tiffany Leon [[id number]] 9 Nancy Leon [[id number]] 8 / Tiffany Leon [[id number]] 9 Nancy Leon [[id number]] 9 Disposition: NICU Operative Note Preoperative Diagnosis: [...] in vertex presentation. APGARS were Tiffany Leon [[id number]] 9 Nancy Leon [[id number]] 8 / Edward, Tiffany [[id number]] 9 Nancy Leon [[id number]] 9 at 1 and 5 minutes respectively. [...] Josefina Peter MD at 09/21/2024 10:12 PM PHOTOGRAPH EDITOR OGRAPH EDITOR OGRAPH EDITOR Associated attestation - Josefina Peter MD - 09/21/2024 10:12 PM PHOTOGRAPH EDITOR I was present for the entire procedure; I agree with the operative report above. Josefina Peter MD * Brief Op Note - Rye Quinonez MD - 09/19/2024 1:30 PM CST Operative Progress Note Surgical Team: Surgeons and Role: * Josefina Peter MD - Primary * Anastasia Plaza MD - Resident - Assisting * Rey Quinonez MD - Resident - Assisting * Joellen Schilling MD - Fellow Anesthesiologist: Sidra Ann MD Anesthesia Fellow: Liliam Rodriguez MD Physical Therapy Aides Teacher: Apolinar Schmitt MD; Abena Denton MD Group Home Worker: Carlos Shukla RN; Venus Jesus RN Scrub: Cayla Park RN L+D Nurse: Abena Cohn RN Patient Physical Biochemist: Jonatan Kelly ST DATE OF SURGERY : [...] Josefina Peter MD at 10/05/2024 8:45 PM PHOTOGRAPH EDITOR OGRAPH EDITOR OGRAPH EDITOR Associated attestation - Josefina Peter MD - 10/05/2024 8:45 PM PHOTOGRAPH EDITOR I was present for the entire procedure. [...] for the Shift: VSS, monitor bp, rest Damage Cutter Patient Centered Goal for Treatment: healthy mom and babies Summary: Milla Cazares RN OGRAPH EDITOR * Plan of Care - Tevin Bateman RN - 09/18/2024 8:30 AM CST Goals: Clinical Goals for the Shift: VSS, reactive nst, pain control, rest [facility] Patient Centered Goal for Treatment: healthy mom [...] management medication regimen will improve Outcome: Progressing OGRAPH EDITOR * Plan of Care - Arabella Esparza [...] Shift: vs wnl, AM labs , rest [facility] Patient Centered Goal for Treatment: healthy mom healthy babies Summary: Arabella Esparza RN OGRAPH EDITOR * Plan of Care - Alejo Rose RN - 09/17/2024 10:47 AM PHOTOGRAPH EDITOR Problem: General Patient Education Goal: Knowledge of [...] Shift: VSS, reactive nst, pain control, rest [facility] Patient Centered Goal for Treatment: healthy mom healthy babies Summary: Alejo Rose RN OGRAPH EDITOR * Plan of Care - Arabella Esparza [...] Goals for the Shift: vs wnl, rest [facility] Patient Centered Goal for Treatment: healthy mom healthy babies Summary: Arabella Esparza RN OGRAPH EDITOR * Plan of Rohit - Alejo Rose RN - 09/16/2024 10:01 AM PHOTOGRAPH EDITOR Problem: General Patient Education Goal: Knowledge of [...] worsening s/s of PreE, pain control, rest [facility] Patient Centered Goal for Treatment: healthy mom healthy babies Summary: Alejo Rose RN OGRAPH EDITOR * Plan of Care - Tash Borden [...] Shift: VSS, adequate pain control < 4 Damage C[facility] Patient Centered Goal for Treatment: healthy mom healthy babies Summary: OGRAPH EDITOR * Plan of Care - Livia Meléndez [...] NST, learn about next steps in care [facility] Patient Centered Goal for Treatment: healthy mom healthy babies Livia Meléndez RN OGRAPH EDITOR * Plan of Care - Maureen Keith RN - 09/14/2024 11:08 AM PHOTOGRAPH EDITOR Problem: General Patient Education Goal: Knowledge of [...] for s/s of worsening preE, reactive NST [facility] Patient Centered Goal for Treatment: healthy mom healthy babies Summary: Maureen Keith RN OGRAPH EDITOR * Plan of Care - Polly Umana [...] worsening s/s of preE, pain control, rest [facility] Patient Centered Goal for Treatment: healthy mom healthy babies OGRAPH EDITOR * Plan of Care - Blessing Barone [...] s/s of PreE; Reactive NST; promote rest [facility] Patient Centered Goal for Treatment: healthy mom and healthy baby Blessing Barone RN OGRAPH EDITOR * Plan of Care - Polly Umana [...] worsening s/s of preE, pain control, rest [facility] Patient Centered Goal for Treatment: healthy mom healthy baby OGRAPH EDITOR * Plan of Care - Blessing Barone [...] monitor for s/s of PreE; promote rest [facility] Patient Centered Goal for Treatment: healthy mom and healthy babies Blessing Barone RN OGRAPH EDITOR * Plan of Care - Polly Umana [...] worsening s/s of preE, pain control, rest [facility] Patient Centered Goal for Treatment: healthy mom healthy baby OGRAPH EDITOR * Plan of Care - Dave Juarez [...] Shift: vss, BP monitoring, reactive NSTx2, rest [facility] Patient [facility]ered Goal for Treatment: healthy mom and healthy babies Summary: OGRAPH EDITOR * Plan of Care - Jessica Morel [...] Goals: Clinical Goals for the Shift: VSS [facility] Patient Centered Goal for Treatment: healthy mom and healthy babies OGRAPH EDITOR * Plan of Care - Dave Juarez [...] Shift: vss, reactive NSTx2, BP control, rest [facility] Patient Centered Goal for Treatment: healthy mom and healthy babies Summary: OGRAPH EDITOR * Plan of Care - Selena Last [...] s/s of complications related to pre-E, rest [facility] Patient Centered Goal for Treatment: healthy mom and healthy babies Summary: Patient resting in bed. Patient had no complaints of pain, headache, cramping or ctx. Patient VSS. OGRAPH EDITOR * Plan of Care - Cha Kelly [...] x2, encourage ambulation and positive coping mechanisms. [facility] Patient Centered Goal for Treatment: healthy mom and healthy babies Summary:Will continue to monitor patient progress towards clinical goals. OGRAPH EDITOR * Plan of Care - Arabella Esparza [...] vs wnl, am lab draw, controlled BP [facility] Patient Centered Goal for Treatment: healthy mom and healthy babies Summary: Arabella Esparza RN OGRAPH EDITOR * Plan of Care - Blessing Barone [...] WNL; pain control; Reactive NST; promote rest [facility] Patient [facility]ered Goal for Treatment: healthy mom and healthy babies Blessing Barone RN OGRAPH EDITOR * Plan of Rohit - Torrie Cline RN - 09/07/2024 11:26 PM CST Goals: Clinical Goals for the Shift: vss, pain control, monitor symptoms of pre-E, rest [facility] Patient Centered Goal for Treatment: healthy mom [...] improve Outcome: Progressing Summary: Torrie Cline RN OGRAPH EDITOR * Plan of Care - Alejo Rose RN - 09/07/2024 9:11 AM PHOTOGRAPH EDITOR Problem: Discharge Planning Goal: Understanding discharge needs [...] s/s of pre E, pain control, rest [facility] Patient Centered Goal for Treatment: healthy mom and baby Summary: Alejo Rose RN OGRAPH EDITOR * Plan of Care - Jenn Mcallister [...] NST; BP monitoring; medication administration; pain management [facility] Patient Centered Goal for Treatment: healthy mom and baby OGRAPH EDITOR * Plan of Care - Maria Luisa Sawyer RN - 09/06/2024 11:46 AM PHOTOGRAPH EDITOR Problem: Discharge Planning Goal: Understanding discharge needs [...] for the Shift: VSS; labs; BP monitoring [facility] Patient [facility]ered Goal for Treatment: healthy mom and baby Summary: OGRAPH EDITOR * Plan of Care - Jenn Mcallister [...] for the Shift: VSS; labs; BP monitoring [facility] Patient Centered Goal for Treatment: healthy mom and baby OGRAPH EDITOR * Plan of Care - Alejo Rose RN - 09/05/2024 10:54 AM PHOTOGRAPH EDITOR Problem: Discharge Planning Goal: Understanding discharge needs [...] nst, no worsening s/s of preE, rest [facility] Patient Centered Goal for Treatment: healthy mom and baby Summary: Alejo Rose RN OGRAPH EDITOR * Plan of Care - Arabella Esparza [...] Goals for the Shift: vs wnl, rest [facility] Patient Centered Goal for Treatment: D/C home safely after delivery Summary: Arabella Esparza RN OGRAPH EDITOR * Plan of Care - Livia Meléndez [...] NST, learn about next steps in care [facility] Patient Centered Goal for Treatment: D/C home safely after delivery Livia Meléndez RN OGRAPH EDITOR * Plan of Care - Arabella Esparza [...] Goals for the Shift: vs wnl, rest [facility] Patient Centered Goal for Treatment: D/C home safely after delivery Summary: Arabella Esparza RN OGRAPH EDITOR * Plan of Care - Livia Meléndez [...] NST, learn about next steps in care [facility] Patient Centered Goal for Treatment: D/C home safely after delivery Livia Meléndez RN OGRAPH EDITOR * Plan of Care - Denisa Bonilla [...] Clinical Goals for the Shift: VSS, rest Damage [facility] Patient Centered Goal for Treatment: D/C home safely after delivery Summary: Continue antepartum care. OGRAPH EDITOR * Plan of Care - Livia Meléndez [...] VSS, BP management, reactive NST, ambulation, shower Damage C[facility] Patient Centered Goal for Treatment: healthy mom healthy babies Livia Meléndez, RN OGRAPH EDITOR * Plan of Care - Polly Umana [...] worsening s/s of preE, pain control, rest [facility] Patient Centered Goal for Treatment: healthy mom healthy babies OGRAPH EDITOR * Plan of Care - Nicole Mercado [...] for the Shift: Monitor VVS, NST, rest [facility] Patient Centered Goal for Treatment: positive outcomes for patient and babies OGRAPH EDITOR * Plan of Care - Polly Umana [...] for the Shift: VSS, pain control, rest [facility] Patient Centered Goal for Treatment: healthy mom healthy baby OGRAPH EDITOR * Plan of Care - Dave Juarez [...] Shift: vss, reactive NSTx2, monitor BP, rest [facility] Patient Centered Goal for Treatment: healthy mom and babies Summary: OGRAPH EDITOR * Plan of Care - Yoselin Moore RN - 08/30/2024 9:43 PM PHOTOGRAPH EDITOR Problem: General Patient Education Goal: Knowledge of [...] rest, monitor for s/s of severe PreE. [facility] Patient Centered Goal for Treatment: healthy mom and babies OGRAPH EDITOR * Plan of Care - Cha Kelly [...] x2, encourage ambulation, promote positive coping skills. [facility] Patient Centered Goal for Treatment: healthy mom and babies Summary: Will continue to monitor patient progress towards clinical goals. OGRAPH EDITOR * Plan of Care - Milla Cazares [...] for the Shift: VSS, monitor BP, rest [facility] Patient Centered Goal for Treatment: healthy mom and babies Summary: Milla Cazares RN OGRAPH EDITOR * Plan of Care - Jessica Morel [...] the Shift: VSS, monitor s/sx of preE [facility] Patient Centered Goal for Treatment: healthy mom and healthy babies OGRAPH EDITOR * Plan of Care - Dave Juarez [...] for the Shift: vss, BP monitoring, rest [facility]ered Goal for Treatment: healthy mom and healthy babies Summary: OGRAPH EDITOR * Plan of Care - Blessing Barone [...] s/s of PreE; Reactive NST; promote rest [facility] Patient [facility]ered Goal for Treatment: healthy mom and healthy babies Blessing Barone RN OGRAPH EDITOR * Plan of Care - Jessica Morel [...] VSS, pain control, monitor s/sx of PreE [facility] Patient [facility]ered Goal for Treatment: healthy mom and baby OGRAPH EDITOR * Plan of Care - Michelle Lorenzo [...] worsening s/s of pre E, pain control [facility] Patient Centered Goal for Treatment: healthy mom and baby Summary: OGRAPH EDITOR * Plan of Care - Jessica Mroel RN - 08/25/2024 8:53 PM CST Problem: [...] Goals for the Shift: VSS, BP monitoring [facility] Patient Centered Goal for Treatment: healthy mom and baby OGRAPH EDITOR * Plan of Care - Dave Juarez [...] reactive NSTx2, pain control, BP monitoring, rest [facility] Patient Centered Goal for Treatment: healthy mom and baby Summary: OGRAPH EDITOR * Plan of Care - Arabella Esparza [...] the Shift: vs wnl, rest, morning labs [facility] Patient Centered Goal for Treatment: healthy mom and baby Summary: Arabella Esparza RN OGRAPH EDITOR * Plan of Care - Dave Juarez [...] Shift: vss, reactive NSTx2, BP monitor, rest [facility] Patient Centered Goal for Treatment: healthy mom and baby Summary: OGRAPH EDITOR * Plan of Care - Floyd Ahumada [...] stable VS; reactive NST; monitro blood pressure [facility] Patient Centered Goal for Treatment: healthy mom and baby Summary: Floyd Ahumada RN OGRAPH EDITOR * Plan of Polly Del Rio RN [...] monitor for worsening s/s of PreE, rest [facility] Patient Centered Goal for Treatment: healthy mom healthy babies OGRAPH EDITOR * Plan of Care - Floyd Ahumada [...] for the Shift: Stable VS; reactive NST [facility] Patient [facility]ered Goal for Treatment: healthy mom and baby Summary: Floyd Ahumada RN OGRAPH EDITOR * Plan of Rohit - Torrie Cline RN - 08/21/2024 9:34 PM CST Goals: Clinical Goals for the Shift: vss, monitor s/s of pre-E, rest [facility] Patient Centered Goal for Treatment: healthy mom [...] improve Outcome: Progressing Summary: Torrie Cline RN OGRAPH EDITOR * Plan of Care - Michelle Lorenzo [...] Shift: stable VS, reactive NST, pain control [facility] Patient Centered Goal for Treatment: healthy mom and babies Summary: OGRAPH EDITOR * Plan of Care - Milla Cazares [...] for the Shift: VSS, monitor BP, rest [facility] Patient Centered Goal for Treatment: healthy mom and babies Summary: Milla Cazares RN OGRAPH EDITOR * Plan of Care - Michelle Lorenzo [...] Shift: stable VS, reactive NST, pain control [facility] Patient Centered Goal for Treatment: healthy mom and babies Summary: OGRAPH EDITOR * Plan of Care - Milla Cazares [...] for the Shift: VSS, monitor BP, rest [facility] Patient [facility]ered Goal for Treatment: healthy mom and babies Summary: Milla Cazares RN OGRAPH EDITOR * Plan of Care - Mima Whatley [...] the Shift: VSS, rest, monitor pre-E s/s [facility] Patient Centered Goal for Treatment: healthy mom, healthy babies Summary: OGRAPH EDITOR * Plan of Care - Kim Eugene RN - 08/18/2024 9:36 PM CST Goals: Clinical Goals for the Shift: monitor vss and promote rest [facility] Patient Centered Goal for Treatment: healthy mom [...] health care needs will improve Outcome: Progressing OGRAPH EDITOR * Plan of Care - Maria Luisa Sawyer RN - 08/18/2024 10:32 AM PHOTOGRAPH EDITOR Problem: Discharge Planning Goal: Understanding discharge needs [...] Shift: VSS, monitor s/s of preE, rest [facility] Patient Centered Goal for Treatment: healthy mom and babies Summary: OGRAPH EDITOR * Plan of Libby Orona RN - [...] Shift: VSS, monitor s/s of preE, rest [facility] Patient Centered Goal for Treatment: healthy mom and babies Summary: Libby Hicks RN OGRAPH EDITOR * Plan of Care - Maureen Keith RN - 08/17/2024 9:55 AM PHOTOGRAPH EDITOR Problem: Discharge Planning Goal: Understanding discharge needs [...] the Shift: VSS, headache relief, reactive NST [facility] Patient Centered Goal for Treatment: healthy mom and babies Summary: Maureen Keith RN OGRAPH EDITOR * Plan of Rohit - Torrie Cline RN - 08/16/2024 10:26 PM CST Goals: Clinical Goals for the Shift: vss, pain relied, monitor for s.s of pre-E, rest [facility] Patient Centered Goal for Treatment: healthy mom [...] improve Outcome: Progressing Summary: Torrie Cline RN OGRAPH EDITOR * Plan of Care - Maureen Keith RN - 08/16/2024 8:46 AM PHOTOGRAPH EDITOR Problem: Discharge Planning Goal: Understanding discharge needs [...] VSS, monitor s/s of preE, reactive NST [facility] Patient Centered Goal for Treatment: healthy mom and babies Summary: Maureen Keith RN OGRAPH EDITOR * Plan of Care - Torrie Cline RN - 08/15/2024 9:28 PM CST Goals: Clinical Goals for the Shift: vss, monitor for s/s of pre-E, rest [facility] Patient Centered Goal for Treatment: healthy mom [...] improve Outcome: Progressing Summary: Torrie Cline RN OGRAPH EDITOR * Plan of Rohit - Blessing Barone [...] s/s of PreE; Reactive NST; promote rest [facility] Patient Centered Goal for Treatment: healthy mom and healthy babies Blessing Barone RN OGRAPH EDITOR * Plan of Rohit - Nancy Garcia [...] Goals: Clinical Goals for the Shift: VSS [facility] Patient Centered Goal for Treatment: healthy mom and babies Summary: Nancy Garcia RN OGRAPH EDITOR * Plan of Care - Hilda Brunner RN - 08/14/2024 10:34 AM CST Goals: Clinical Goals for the Shift: VSS [facility] Patient Centered Goal for Treatment: healthy mom [...] health care needs will improve Outcome: Progressing OGRAPH EDITOR * Plan of Care - Torrie Cline RN - 08/13/2024 8:59 PM CST Goals: Clinical Goals for the Shift: vss, pain control, rest [facility] Patient Centered Goal for Treatment: healthy mom [...] improve Outcome: Progressing Summary: Torrie Cline RN OGRAPH EDITOR * Plan of Rohit - Livia Meléndez [...] management, learn about next steps in care [facility]ered Goal for Treatment: healthy mom and babies Summary: Livia Meléndez RN OGRAPH EDITOR * Plan of Rohit - Nancy Garcia [...] Pain relief; Monitor S/S of preE; Rest [facility] Patient Centered Goal for Treatment: Healthy mom and healthy babies Summary: Nancy Garcia RN OGRAPH EDITOR * Plan of Care - Heather Abel RN - 08/12/2024 7:23 AM CST Goals: Clinical Goals for the Shift: VSS; Pain relief; Monitor S/S of preE; Rest [facility] Patient Centered Goal for Treatment: Healthy mom [...] health care needs will improve Outcome: Progressing OGRAPH EDITOR * Plan of Torrie Sawant RN - 08/11/2024 7:57 PM CST Goals: Clinical Goals for the Shift: vss, pain relief, monitor s/s of pre-E, rest [facility] Patient [facility] Goal for Treatment: healthy mom [...] improve Outcome: Progressing Summary: Torrie Cline RN OGRAPH EDITOR * Plan of Carol Raya RN - 08/11/2024 9:46 AM CST Goals: Clinical Goals for the Shift: Monitor vitals and s/sx of PreE [facility] Patient [facility]ered Goal for Treatment: healthy mom [...] Outcome: Progressing Summary: Pt progressing towards goals. OGRAPH EDITOR * Plan of Care - Jessica Morel [...] the Shift: VSS, monitor s/sx of PreE [facility] Patient Centered Goal for Treatment: healthy mom and baby OGRAPH EDITOR * Note - Wendy Armstrong RN - [...] regarding choice to provide EBM for twins. OGRAPH EDITOR * Plan of Care - Hilda Brunner RN - 08/10/2024 1:33 PM CST Goals: Clinical Goals for the Shift: VSS, monitor s/sx of preE [facility] Patient Centered Goal for Treatment: healthy mom [...] health care needs will improve Outcome: Progressing OGRAPH EDITOR * Plan of Care - Jessica Morel [...] the Shift: VSS, monitor s/sx of preE [facility] Patient Centered Goal for Treatment: healthy mom and baby OGRAPH EDITOR * Plan of Rohit - Floyd Ahumada [...] for the Shift: Stable VS; reactive NST [facility] Patient Centered Goal for Treatment: healthy mom and baby Summary: Floyd Ahumada RN OGRAPH EDITOR * Plan of Care - Jessica Morel [...] the Shift: VSS, monitor s/sx of PreE [facility] Goal for Treatment: healthy mom and baby OGRAPH EDITOR * Plan of Care - Floyd Ahumada [...] for the Shift: Stable VS; reactive NST [facility] Patient Centered Goal for Treatment: healthy mom and baby Summary: Floyd Ahumada RN OGRAPH EDITOR * Plan of Care - Nick Solomon [...] VS, monitor s/s pre-e, pain control, rest [facility] Goal for Treatment: healthy mom and healthy baby Summary: Nick Solomon RN OGRAPH EDITOR * Plan of Care - Michelle Lorenzo [...] and no s/s of worsening pre E [facility] Patient Centered Goal for Treatment: healthy mom and healthy baby Summary: OGRAPH EDITOR * Plan of Care - Blessing Barone [...] the Shift: VS WNL; labs; promote rest [facility] Patient Centered Goal for Treatment: healthy mom [...] NST, and no worsening s/s of pre [facility] Patient Centered Goal for Treatment: healthy mom [...] VSS, monitor for s/s of pre-e, rest [facility] Patient [facility]ered Goal for Treatment: healthy mom [...] for the Shift: vs wnl, reactive NST [facility] Goal for Treatment: healthy mom and baby Summary: RACHEL Mckay * Plan of Care - Kim Eugene RN - 08/04/2024 9:22 PM CDT Goals: Clinical Goals for the Shift: monitor vss and promote rest [facility] Patient Centered Goal for Treatment: healthy mom [...] NST, learn about next steps in care [facility] Patient [facility]ered Goal for Treatment: healthy mom [...] VS, monitor s/s pre-e, pain control, rest [facility] Patient [facility]ered Goal for Treatment: healthy mom [...] [place]. She delivered a viable Tiffany Leon [[id number]] male Nancy Leon [[id number]] male infant with apgars Tiffany Leon [[id number]] 9 Nancy Leon [[id number]] 8 and Tiffany Leon [[id number]] 9 Nancy Leon [[id number]] 9 at one and five minutes of [...] chosen implant for contraception. Nexplanon placed 09/20 OGRAPH EDITOR OGRAPH EDITOR OGRAPH EDITOR OGRAPH EDITOR OGRAPH EDITOR OGRAPH EDITOR OGRAPH EDITOR OGRAPH EDITOR OGRAPH EDITOR OGRAPH EDITOR OGRAPH EDITOR * Plan of Care - Hilda Brunner RN - 08/03/2024 3:18 PM CDT Goals: Clinical Goals for the Shift: VSS [facility] Patient Centered Goal for Treatment: healthy mom [...] the Shift: VSS, monitor for preeclampsia complications [facility] Patient Centered Goal for Treatment: healthy mom [...] preeclampsia, reactive and reassuring monitoring x 2, [facility] Patient Centered Goal for Treatment: healthy mom and baby * Plan of Care - Torrie Cline RN - 08/01/2024 9:27 PM CDT Goals: Clinical Goals for the Shift: vss, pain control for headache, monitor s/s of pre-E, rest [facility] Patient [facility]ered Goal for Treatment: healthy mom [...] Shift: vs wnl, reactive NST, monitor BP [facility] Patient [facility] Goal for Treatment: Positive outcomes for patient and babies Summary: RACHEL Mckay * Plan of Care - Kim Eugene RN - 07/31/2024 8:42 PM CDT Goals: Clinical Goals for the Shift: monitor vss and promote rest Damage C[facility] Patient Centered Goal for Treatment: Positive outcomes [...] Outcome: Progressing * Plan of Care - iSngh Sainz RN - 07/31/2024 6:11 PM CDT [...] Goals for the Shift: VSS; reactive NST. Damage Cutter Patient Centered Goal for Treatment: Positive outcomes [...] and reassuring monitoring x 2, promote rest. Damage Cutter Patient Centered Goal for Treatment: healthy mom [...] PM CDT Reason for Admission Pt (Suki Salagdoth Leon 1995) was admitted on 07/29/2024 for Preeclampsia, unspecified trimester [O14.90]. Social Work met with Suki Leon for [facility] check in. 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 Medical insurance coverage is through [employer] [place] [employer] and [employer]. Pt is currently 26.4 weeks gestation. Social History Current address is [address] [place] [id number], where she lives with her . Currently [phone] (home) is the best phone number for future contact. Pt reports that her and family will be a positive support for her. /Father of the baby, Florentino Leon, can be reached at [phone]. FOB has been present and supportive at the hospital. Mood and Anxiety Maternal history of anxiety noted in chart. Pt reports some adjustment to snf hospital admission, but state she is currently [...] Plan Social Work will continue to attend [facility] and collaborate with medical team. Social Work will follow for support and additional needs should they arise. ARACELIS Tyler, STEAMFITTER APPRENTICE [facility] Clinical Drafter [facility] * Plan of [...] IMMUNE GLOBULIN EVAL Timed 09/20/2024 4:48 AM PHOTOGRAPH EDITOR BLEED SCREEN Timed 09/20/2024 4: 48 AM PHOTOGRAPH EDITOR ABO/RH Timed 09/20/2024 4:48 AM PHOTOGRAPH EDITOR CBC WITHOUT DIFFERENTIAL Routine 09/20/2024 4:48 AM PHOTOGRAPH EDITOR SURGICAL PATHOLOGY Routine 09/19/2024 4: 06 PM PHOTOGRAPH EDITOR SECTION 09/19/2024 1:56 PM PHOTOGRAPH EDITOR TIUP Case Notes PreE w/ SF and Multiple gestation EGFR Timed 09/18/2024 6:21 AM PHOTOGRAPH EDITOR CBC WITHOUT DIFFERENTIAL Timed 09/18/2024 6:21 AM PHOTOGRAPH EDITOR TYPE AND SCREEN Timed 09/18/2024 6:21 AM PHOTOGRAPH EDITOR COMPREHENSIVE METABOLIC PANEL Timed 09/18/2024 6:21 AM PHOTOGRAPH EDITOR NONSTRESS TEST Routine 09/17/2024 2:58 PM PHOTOGRAPH EDITOR Preeclampsia, unspecified trimester 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 US OB FOLLOW UP IP Routine 09/15/2024 1:08 PM PHOTOGRAPH EDITOR EGFR Timed 09/15/2024 6:17 AM PHOTOGRAPH EDITOR CBC WITHOUT DIFFERENTIAL Timed 09/15/2024 6:17 AM PHOTOGRAPH EDITOR TYPE AND SCREEN Timed 09/15/2024 6:17 AM PHOTOGRAPH EDITOR COMPREHENSIVE METABOLIC PANEL Timed 09/15/2024 6:17 AM PHOTOGRAPH EDITOR NONSTRESS TEST Routine 09/13/2024 5:10 PM PHOTOGRAPH EDITOR Preeclampsia, unspecified trimester 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 EGFR Timed 09/12/2024 6:35 AM PHOTOGRAPH EDITOR CBC WITHOUT DIFFERENTIAL Timed 09/12/2024 6:35 AM PHOTOGRAPH EDITOR TYPE AND SCREEN Timed 09/12/2024 6:35 AM PHOTOGRAPH EDITOR COMPREHENSIVE METABOLIC PANEL Timed 09/12/2024 6:35 AM PHOTOGRAPH EDITOR EGFR Timed 09/09/2024 6:24 AM PHOTOGRAPH EDITOR CBC WITHOUT DIFFERENTIAL Timed 09/09/2024 6:24 AM PHOTOGRAPH EDITOR TYPE AND SCREEN Timed 09/09/2024 6:24 AM PHOTOGRAPH EDITOR COMPREHENSIVE METABOLIC PANEL Timed 09/09/2024 6:24 AM PHOTOGRAPH EDITOR US OB LIMITED IP Routine 09/08/2024 10:29 AM PHOTOGRAPH EDITOR NONSTRESS TEST Routine 09/06/2024 8:38 PM PHOTOGRAPH EDITOR Preeclampsia, unspecified trimester 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 EGFR Timed 09/06/2024 4:31 AM PHOTOGRAPH EDITOR CBC WITHOUT DIFFERENTIAL Timed 09/06/2024 4:31 AM PHOTOGRAPH EDITOR TYPE AND SCREEN Timed 09/06/2024 4:31 AM PHOTOGRAPH EDITOR COMPREHENSIVE METABOLIC PANEL Timed 09/06/2024 4:31 AM PHOTOGRAPH EDITOR GROUP B STREPTOCOCCUS CULTURE Routine 09/03/2024 10:29 AM PHOTOGRAPH EDITOR EGFR Timed 09/03/2024 5:26 AM PHOTOGRAPH EDITOR CBC WITHOUT DIFFERENTIAL Timed 09/03/2024 5:26 AM PHOTOGRAPH EDITOR TYPE AND SCREEN Timed 09/03/2024 5:26 AM PHOTOGRAPH EDITOR COMPREHENSIVE METABOLIC PANEL Timed 09/03/2024 5:26 AM PHOTOGRAPH EDITOR ECG 12-LEAD Routine 09/02/2024 4:33 PM PHOTOGRAPH EDITOR EGFR Timed 08/31/2024 6:20 AM PHOTOGRAPH EDITOR CBC WITHOUT DIFFERENTIAL Timed 08/31/2024 6:20 AM PHOTOGRAPH EDITOR TYPE AND SCREEN Timed 08/31/2024 6:20 AM PHOTOGRAPH EDITOR COMPREHENSIVE METABOLIC PANEL Timed 08/31/2024 6:20 AM PHOTOGRAPH EDITOR NONSTRESS TEST Routine 08/29/2024 2:32 PM PHOTOGRAPH EDITOR Preeclampsia, unspecified trimester 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 NONSTRESS TEST Routine 08/28/2024 7:47 PM PHOTOGRAPH EDITOR Preeclampsia, unspecified trimester 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 EGFR Timed 08/28/2024 6:00 AM PHOTOGRAPH EDITOR CBC WITHOUT DIFFERENTIAL Timed 08/28/2024 6:00 AM PHOTOGRAPH EDITOR TYPE AND SCREEN Timed 08/28/2024 6:00 AM PHOTOGRAPH EDITOR COMPREHENSIVE METABOLIC PANEL Timed 08/28/2024 6:00 AM PHOTOGRAPH EDITOR EGFR Timed 08/25/2024 6:19 AM PHOTOGRAPH EDITOR CBC WITHOUT DIFFERENTIAL Timed 08/25/2024 6:19 AM PHOTOGRAPH EDITOR TYPE AND SCREEN Timed 08/25/2024 6:19 AM PHOTOGRAPH EDITOR COMPREHENSIVE METABOLIC PANEL Timed 08/25/2024 6:19 AM PHOTOGRAPH EDITOR US OB FOLLOW UP IP Routine 08/24/2024 9:37 AM PHOTOGRAPH EDITOR EGFR Timed 08/22/2024 6:02 AM PHOTOGRAPH EDITOR CBC WITHOUT DIFFERENTIAL Timed 08/22/2024 6:02 AM PHOTOGRAPH EDITOR TYPE AND SCREEN Timed 08/22/2024 6:02 AM PHOTOGRAPH EDITOR COMPREHENSIVE METABOLIC PANEL Timed 08/22/2024 6:02 AM PHOTOGRAPH EDITOR EGFR Timed 08/19/2024 6:25 AM PHOTOGRAPH EDITOR CBC WITHOUT DIFFERENTIAL Timed 08/19/2024 6:25 AM PHOTOGRAPH EDITOR TYPE AND SCREEN Timed 08/19/2024 6:25 AM PHOTOGRAPH EDITOR COMPREHENSIVE METABOLIC PANEL Timed 08/19/2024 6:25 AM PHOTOGRAPH EDITOR US OB LIMITED IP Routine 08/16/2024 8:35 AM PHOTOGRAPH EDITOR ANTIBODY IDENTIFICATION Routine 08/16/2024 7:34 AM PHOTOGRAPH EDITOR EGFR Timed 08/16/2024 6:15 AM PHOTOGRAPH EDITOR THYROID FUNCTION CASCADE Routine 08/16/2024 6:15 AM PHOTOGRAPH EDITOR CBC WITHOUT DIFFERENTIAL Timed 08/16/2024 6:15 AM PHOTOGRAPH EDITOR TYPE AND SCREEN Timed 08/16/2024 6:15 AM PHOTOGRAPH EDITOR COMPREHENSIVE METABOLIC PANEL Timed 08/16/2024 6:15 AM PHOTOGRAPH EDITOR POCT GLUCOSE DEVICE Routine 08/14/2024 3 :06 PM PHOTOGRAPH EDITOR ECG 12-LEAD Routine 08/13/2024 9:02 AM PHOTOGRAPH EDITOR ANTIBODY IDENTIFICATION Routine 08/13/2024 7:42 AM PHOTOGRAPH EDITOR EGFR Timed 08/13/2024 5:44 AM PHOTOGRAPH EDITOR HIV 1/2 ANTIBODY PLUS P24 ANTIGEN Routine 08/13/2024 5:44 AM PHOTOGRAPH EDITOR RPR Routine 08/13/2024 5:44 AM PHOTOGRAPH EDITOR CBC WITHOUT DIFFERENTIAL Timed 08/13/2024 5:44 AM PHOTOGRAPH EDITOR TYPE AND SCREEN Timed 08/13/2024 5:44 AM PHOTOGRAPH EDITOR COMPREHENSIVE METABOLIC PANEL Timed 08/13/2024 5:44 AM PHOTOGRAPH EDITOR GTT 50GM 1HR GESTATIONAL SCREEN Timed 08/12/2024 11:29 AM PHOTOGRAPH EDITOR ANTIBODY IDENTIFICATION Routine 08/10/2024 7:02 AM PHOTOGRAPH EDITOR EGFR Timed 08/10/2024 4:49 AM PHOTOGRAPH EDITOR CBC WITHOUT DIFFERENTIAL Timed 08/10/2024 4:49 AM PHOTOGRAPH EDITOR TYPE AND SCREEN Timed 08/10/2024 4:49 AM PHOTOGRAPH EDITOR COMPREHENSIVE METABOLIC PANEL Timed 08/10/2024 4:49 AM PHOTOGRAPH EDITOR US OB 14 WEEKS OR OVER IP Routine 08/09/2024 9:47 AM PHOTOGRAPH EDITOR ANTIBODY IDENTIFICATION Routine 08/07/2024 6:51 AM PHOTOGRAPH EDITOR EGFR Timed 08/07/2024 5:00 AM PHOTOGRAPH EDITOR CBC WITHOUT DIFFERENTIAL Timed 08/07/2024 5:00 AM PHOTOGRAPH EDITOR COMPREHENSIVE METABOLIC PANEL Timed 08/07/2024 5:00 AM PHOTOGRAPH EDITOR TYPE AND SCREEN Timed 08/07/2024 4:[address] CHEST PE W CONTRAST ED Urgent/IP [...] Results * Bleed Screen (09/20/2024 4:48 AM PHOTOGRAPH EDITOR) Bleed Screen Negative Blood 09/20/2024 4:48 AM PHOTOGRAPH EDITOR 09/20/2024 5:03 AM PHOTOGRAPH EDITOR Rey Quinonez MD LAB BLOOD BANK TEST ORDERABLE S Final Result Performing Organization Address [facility] Co de Phone Number [facility] [place] [address] * ABO/Rh (09/20/2024 4:48 AM PHOTOGRAPH EDITOR) Pathologist [facility] ABO Rh O Negative Blood 09/20/2024 4:48 AM PHOTOGRAPH EDITOR 09/20/2024 5:03 AM PHOTOGRAPH EDITOR Rey Quinonez MD LAB BLOOD BANK TEST ORDERABLE S Final Result Performing Organization Address [facility] de Phone Number [facility] [place] [address] * Rh Immune Globulin Eval (09/20/2024 4:48 AM PHOTOGRAPH EDITOR) Pathologist [facility] RhIg Administration 1 vial of Rh Immune Globulin (300 mcg dose) RhIg Eligible Yes, eligible [facility] Blood 09/20/2024 4:48 AM PHOTOGRAPH EDITOR 09/20/2024 5:03 AM PHOTOGRAPH EDITOR Narrative [facility] - 09/20/2024 5:36 AM PHOTOGRAPH EDITOR Number of weeks ?->20 weeks or greater antibody screen result:->Negative Rhogam given?->Given Date Given?->08/01/24 Number of vials requested:->1 Sara Eng MD LAB BLOOD BANK TEST ORDERABL ES Final Result Performing Organization Address [facility] Co de Phone Number [facility] [employer] [place], [place] [id number] * (ABNORMAL) CBC without differential (09/20/2024 4:48 AM PHOTOGRAPH EDITOR) [facility] [address] WBC 10.3(H) 3.8 - 9.9 K/cumm Hgb 9.7(L) 11.9 - 15.5 g/dL [facility] Hct 28.4(L) 35.6 - 45.5 % [facility] Plt 230 150 - 400 K/cumm [facility] MPV 10.8 9.1 - 12.3 fL [facility] RBC 3.22(L) 3.90 - 5.20 M/cumm [facility] MCV 88.2 81.3 - 96.4 fL [facility] MCH 30.1 27.1 - 33.3 pg [facility] MCHC 34.2 32.3 - 35.7 g/dL [facility] RDW CV 13.9 11.1 - 14.9 % [facility] RDW SD 44.6 35.7 - 48.1 fL [facility] NRBC abs 0.00 0.00 - 0.01 K/cumm [facility] Blood 09/20/2024 4:48 AM PHOTOGRAPH EDITOR 09/20/2024 5:11 AM PHOTOGRAPH EDITOR Sara Eng MD LAB BLOOD ORDERABLES Final R esult Performing Organization Address City/State/[facility] Co de Phone Number [facility] Department [place] [address] * Surgical pathology (09/19/2024 4:06 PM PHOTOGRAPH EDITOR) Tissue (Placenta) 09/19/2024 4:06 PM PHOTOGRAPH EDITOR 09/20/2024 8:37 AM PHOTOGRAPH EDITOR Narrative PATHOLOGY [facility] - 09/26/2024 2:16 PM PHOTOGRAPH EDITOR EPIC results best viewed via link to PDF [facility] [place] [address] Note to Patients: This report may contain [...] FINAL Patient Name: ?? SUKI LEON #: ??[id number] Gender: ??F : ??1995 (Age: 29) Address: ??[address] [place] [address] ??[id number] Hospital #: ??[id number] Taken:09/19/2024 Received:09/20/2024 Reported: 09/26/2024 Patient Type: [facility] Inpatient ?? Service: Obstetrics Location: [facility] ??6800 Physician(s): ??MD Sara Parker M.D. Diagnosis: ??Placenta, delivery - 662 grams diamnionic, monochorionic, pre-term twin placenta - Acute atherosis - Accelerated villous maturation -Trivascular cords with no histopathologic abnormalities [facility]/09/26/2024 14:16 By this signature, I attest [...] discrete lesions or infarcts are grossly identified. ??Feed Elevator Worker sections are submitted: ??A1 = arbitrarily assigned twin A, cord and membranes; A2-4 = twin A, representative government relations parenchyma; A5 = common membrane and T- zone; A6 = arbitrarily assigned twin B, cord and membranes; A7-9 = twin B, representative government relations parenchyma. ??Jar 3. ? sxv/09/21/2024 11:11 PA(s): Catalino Hernandez MS, FREDRICK ([facility])CM By this signature, I attest that the above diagnosis is based upon my personal examination of the slides(and/or other material). Addenda/Procedures The performance characteristics of some immunohistochemical stains, fluorescence in-situ hybridization tests and immunophenotyping by flow cytometry cited in this report (if any) were determined by the Surgical Pathology and Flow Cytometry Departments at [facility] as part of an ongoing research quality assurance analyst program and in compliance with federally mandated [...] Surgical Pathology and Flow Cytometry Departments of [facility]. ??It has not been cleared or approved by the U. S. Food and Drug Administration. IMAGES AND SCANNED DOCUMENTS, IF INCLUDED, ONLY VIEWABLE IN PDF VERSION OF REPORT us Sara Eng MD LAB PATHOLOGY ORDERABLES Fin al Result PATHOLOGY [facility] IOH 3rd Floor [place], [place] [phone] * eGFR (09/18/2024 6:21 AM PHOTOGRAPH EDITOR) eGFR >90 >=60 mL/min/1. 73 m2 Comment: [...] last reviewed 2021. Blood 09/18/2024 6:21 AM PHOTOGRAPH EDITOR 09/18/2024 6:32 AM PHOTOGRAPH EDITOR us Anastasia Amaro MD LAB BLOOD ORDERABLES Final Result [facility] Department [place] [address] * (ABNORMAL) Comprehensive metabolic panel (09/18/2024 6:21 AM PHOTOGRAPH EDITOR) Sodium 134(L) 135 - 145 mmol/L Potassium, pl 3.8 3.3 - 4.9 mmol/L [facility] Chloride 105 97 - 110 mmol/L [facility] CO2 23 22 - 32 mmol/L [facility] Anion gap 6 2 - 15 mmol/L [facility] BUN 9 6 - 25 mg/dL [facility] Creatinine 0.69 0.60 - 1.10 mg/dL [facility] Glucose 68(L) 70 - 199 mg/dL [facility] Comment: Interpretive Data Fasting glucose >/= [...] 2022. Calcium 9.0 8.5 - 10.3 mg/dL [facility] Bilirubin, total 0.2 0.1 - 1.2 mg/dL [facility] Protein, pl 6.3(L) 6.5 - 8.5 g/dL [facility] Albumin 3.0(L) 3.5 - 5.0 g/dL [facility] Alk phos 125 40 - 130 Units/L [facility] ALT 14 7 - 45 Units/L [facility] AST 16 10 - 45 Units/L [facility] Blood 09/18/2024 6:21 AM PHOTOGRAPH EDITOR 09/18/2024 6:32 AM PHOTOGRAPH EDITOR us Anastasia Amaro MD LAB BLOOD ORDERABLES Final Result [facility] [place] [address] * (ABNORMAL) CBC without differential (09/18/2024 6:21 AM PHOTOGRAPH EDITOR) WBC 10.0(H) 3.8 - 9.9 K/cumm Hgb 11.6(L) 11.9 - 15.5 g/dL [facility] Hct 34.0(L) 35.6 - 45.5 % [facility] Plt 250 150 - 400 K/cumm [facility] MPV 11.0 9.1 - 12.3 fL [facility] RBC 3.92 3.90 - 5.20 M/cumm [facility] MCV 86.7 81.3 - 96.4 fL [facility] MCH 29.6 27.1 - 33.3 pg [facility] MCHC 34.1 32.3 - 35.7 g/dL [facility] RDW CV 13.7 11.1 - 14.9 % [facility] RDW SD 43.1 35.7 - 48.1 fL [facility] NRBC abs 0.00 0.00 - 0.01 K/cumm [facility] Blood 09/18/2024 6:21 AM PHOTOGRAPH EDITOR 09/18/2024 6:32 AM PHOTOGRAPH EDITOR Anastasia Amaro MD LAB BLOOD ORDERABLES Final Result Performing Organization Address City/[facility] Co de Phone Number [facility] [place] [address] * Type and screen (09/18/2024 6:21 AM PHOTOGRAPH EDITOR) Abiodun, indirect Negative ABO Rh O Negative [facility] Blood 09/18/2024 6:21 AM PHOTOGRAPH EDITOR 09/18/2024 6:35 AM PHOTOGRAPH EDITOR Narrative [facility] - 09/18/2024 7:42 AM PHOTOGRAPH EDITOR Has the patient had Daratumumab or Isatuximab in the past 6 months?->Unknown Anastasia Amaro MD LAB BLOOD BANK TEST ORDERA BLES Final Result [facility] [place] [address] * nonstress test (09/17/2024 2:58 PM PHOTOGRAPH EDITOR) Narrative Raghuraman, Sandra, MD - 09/17/2024 2:58 PM PHOTOGRAPH EDITOR Joellen Schilling MD ? 09/17/2024 ??4:04 PM nonstress test Date/Time: 09/17/2024 2:58 PM Performed by: Maureen Calix MD Authorized by: Ana M Rogers MD ?? us Ana M Rogers MD OB GYNE ORDERABLES Fi nal Result * US Ob Follow Up (09/15/2024 1:08 PM PHOTOGRAPH EDITOR) Fetus# Fetus1 VIEWPOINT Estimated Weight 1,709 g&grams VIEWPOINT Placenta Details anterior VIEWPOINT Presentation Vertex; Maternal right- low VIEWPOINT Fetus# Fetus2 VIEWPOINT Estimated Weight 2,585 g&grams VIEWPOINT Placenta Details anterior VIEWPOINT Presentation Vertex; Maternal left- high VIEWPOINT Anatomical Region Laterality Modality Abdomen N/A Ultrasound 09/15/2024 1:08 PM PHOTOGRAPH EDITOR Impressions 09/15/2024 2:24 PM PHOTOGRAPH EDITOR Diamniotic (presumed MCDA) TIUP at 33w33d who [...] R esult * eGFR (09/15/2024 6:17 AM PHOTOGRAPH EDITOR) eGFR >90 >=60 mL/min/1. 73 m2 Comment: [...] last reviewed 2021. Blood 09/15/2024 6:17 AM PHOTOGRAPH EDITOR 09/15/2024 6:31 AM PHOTOGRAPH EDITOR us Anastasia Amaro MD LAB BLOOD ORDERABLES Final Result [facility] Department [place] [address] * (ABNORMAL) Comprehensive metabolic panel (09/15/2024 6:17 AM PHOTOGRAPH EDITOR) Pathologist [facility] Sodium 139 135 - 145 mmol/L Potassium, pl 3.5 3.3 - 4.9 mmol/L [facility] Chloride 106 97 - 110 mmol/L [facility] CO2 21(L) 22 - 32 mmol/L [facility] Anion gap 12 2 - 15 mmol/L [facility] BUN 8 6 - 25 mg/dL [facility] Creatinine 0.66 0.60 - 1.10 mg/dL [facility] Glucose 106 70 - 199 mg/dL [facility] Comment: Interpretive Data Fasting glucose >/= [...] 2022. Calcium 9.0 8.5 - 10.3 mg/dL [facility] Bilirubin, total <0.2 0.1 - 1.2 mg/dL [facility] Protein, pl 6.4(L) 6.5 - 8.5 g/dL [facility] Albumin 3.0(L) 3.5 - 5.0 g/dL [facility] Alk phos 124 40 - 130 Units/L [facility] ALT 19 7 - 45 Units/L [facility] AST 20 10 - 45 Units/L [facility] Blood 09/15/2024 6:17 AM PHOTOGRAPH EDITOR 09/15/2024 6:31 AM PHOTOGRAPH EDITOR us Anastasia Amaro MD LAB BLOOD ORDERABLES Final Result [facility] Department [place] [address] * (ABNORMAL) CBC without differential (09/15/2024 6:17 AM PHOTOGRAPH EDITOR) WBC 10.1(H) 3.8 - 9.9 K/cumm Hgb 11.7(L) 11.9 - 15.5 g/dL [facility] Hct 34.6(L) 35.6 - 45.5 % [facility] Plt 253 150 - 400 K/cumm [facility] MPV 11.2 9.1 - 12.3 fL [facility] RBC 3.94 3.90 - 5.20 M/cumm [facility] MCV 87.8 81.3 - 96.4 fL [facility] MCH 29.7 27.1 - 33.3 pg [facility] MCHC 33.8 32.3 - 35.7 g/dL [facility] RDW CV 13.8 11.1 - 14.9 % [facility] RDW SD 44.1 35.7 - 48.1 fL [facility] NRBC abs 0.00 0.00 - 0.01 K/cumm [facility] Blood 09/15/2024 6:17 AM PHOTOGRAPH EDITOR 09/15/2024 6:31 AM PHOTOGRAPH EDITOR us Anastasia Amaro MD LAB BLOOD ORDERABLES Final Result Performing Organization Address City/[facility] Co de Phone Number [facility] [place] [address] * Type and screen (09/15/2024 6:17 AM PHOTOGRAPH EDITOR) Abiodun, indirect Negative Comment:Patient has previous antibody history ABO Rh O Negative [facility] Blood 09/15/2024 6:17 AM PHOTOGRAPH EDITOR 09/15/2024 6:30 AM PHOTOGRAPH EDITOR Narrative [facility] - 09/15/2024 7:57 AM PHOTOGRAPH EDITOR Has the patient had Daratumumab or Isatuximab in the past 6 months?->Unknown us Anastasia Amaro MD LAB BLOOD BANK TEST ORDERA BLES Final Result [facility] [place] [address] * nonstress test (09/13/2024 5:10 PM PHOTOGRAPH EDITOR) Narrative Sandra Christy MD - 09/13/2024 5:10 PM PHOTOGRAPH EDITOR Anastasia Plaza MD ? 09/13/2024 ??5:21 PM [...] nal Result * eGFR (09/12/2024 6:35 AM PHOTOGRAPH EDITOR) eGFR >90 >=60 mL/min/1. 73 m2 Comment: [...] last reviewed 2021. Blood 09/12/2024 6:35 AM PHOTOGRAPH EDITOR 09/12/2024 6:51 AM PHOTOGRAPH EDITOR us Anastasia Amaro MD LAB BLOOD ORDERABLES Final Result [facility] Department [place] [address] * (ABNORMAL) Comprehensive metabolic panel (09/12/2024 6:35 AM PHOTOGRAPH EDITOR) Sodium 139 135 - 145 mmol/L Potassium, pl 3.8 3.3 - 4.9 mmol/L [facility] Chloride 107 97 - 110 mmol/L [facility] CO2 22 22 - 32 mmol/L [facility] Anion gap 10 2 - 15 mmol/L [facility] BUN 6 6 - 25 mg/dL [facility] Creatinine 0.64 0.60 - 1.10 mg/dL [facility] Glucose 69(L) 70 - 199 mg/dL [facility] Comment: Interpretive Data Fasting glucose >/= [...] Calcium 8.8 8.5 - 10.3 mg/dL [facility] Bilirubin, total <0.2 0.1 - 1.2 mg/dL [facility] Protein, pl 6.4(L) 6.5 - 8.5 g/dL [facility] Albumin 3.1(L) 3.5 - 5.0 g/dL [facility] Alk phos 122 40 - 130 Units/L [facility] ALT 22 7 - 45 Units/L [facility] AST 23 10 - 45 Units/L [facility] Blood 09/12/2024 6:35 AM PHOTOGRAPH EDITOR 09/12/2024 6:51 AM PHOTOGRAPH EDITOR Anastasia Amaro MD LAB BLOOD ORDERABLES Final Result Performing Organization Address [facility] Co de Phone Number [facility] Department [place] [address] * (ABNORMAL) CBC without differential (09/12/2024 6:35 AM PHOTOGRAPH EDITOR) WBC 10.0(H) 3.8 - 9.9 K/cumm Hgb 11.8(L) 11.9 - 15.5 g/dL [facility] Hct 35.3(L) 35.6 - 45.5 % [facility] Plt 226 150 - 400 K/cumm [facility] MPV 11.2 9.1 - 12.3 fL [facility] RBC 3.97 3.90 - 5.20 M/cumm [facility] MCV 88.9 81.3 - 96.4 fL [facility] MCH 29.7 27.1 - 33.3 pg [facility] MCHC 33.4 32.3 - 35.7 g/dL [facility] RDW CV 13.8 11.1 - 14.9 % [facility] RDW SD 44.5 35.7 - 48.1 fL [facility] NRBC abs 0.02(H) 0.00 - 0.01 K/cumm [facility] Blood 09/12/2024 6:35 AM PHOTOGRAPH EDITOR 09/12/2024 6:52 AM PHOTOGRAPH EDITOR Anastasia Amaro MD LAB BLOOD ORDERABLES Final Result [facility] Department [place] [address] * Type and screen (09/12/2024 6:35 AM PHOTOGRAPH EDITOR) ABO Rh O Negative Abiodun, indirect Negative [facility] Comment:Patient has previous antibody history Blood 09/12/2024 6:35 AM PHOTOGRAPH EDITOR 09/12/2024 6:48 AM PHOTOGRAPH EDITOR Narrative [facility] - 09/12/2024 7:49 AM PHOTOGRAPH EDITOR Has the patient had Daratumumab or Isatuximab in the past 6 months?->Unknown us Anastasia Amaro MD LAB BLOOD BANK TEST ORDERA BLES Final Result Performing Organization Address [facility] Phone Number [facility] Department [place] [address] * eGFR (09/09/2024 6:24 AM PHOTOGRAPH EDITOR) eGFR >90 >=60 mL/min/1. 73 m2 Comment: [...] last reviewed 2021. Blood 09/09/2024 6:24 AM PHOTOGRAPH EDITOR 09/09/2024 6:52 AM PHOTOGRAPH EDITOR us Anastasia Amaro MD LAB BLOOD ORDERABLES Final Result [facility] Department [place] [address] * (ABNORMAL) Comprehensive metabolic panel (09/09/2024 6:24 AM PHOTOGRAPH EDITOR) Sodium 141 135 - 145 mmol/L Potassium, pl 3.8 3.3 - 4.9 mmol/L [facility] Chloride 108 97 - 110 mmol/L [facility] CO2 22 22 - 32 mmol/L [facility] Anion gap 11 2 - 15 mmol/L [facility] BUN 8 6 - 25 mg/dL [facility] Creatinine 0.75 0.60 - 1.10 mg/dL [facility] Glucose 70 70 - 199 mg/dL [facility] Comment: Interpretive Data Fasting glucose >/= [...] Calcium 8.9 8.5 - 10.3 mg/dL [facility] Bilirubin, total <0.2 0.1 - 1.2 mg/dL [facility] Protein, pl 6.2(L) 6.5 - 8.5 g/dL [facility] Albumin 3.2(L) 3.5 - 5.0 g/dL [facility] Alk phos 117 40 - 130 Units/L [facility] ALT 22 7 - 45 Units/L [facility] AST 23 10 - 45 Units/L [facility] Blood 09/09/2024 6:24 AM PHOTOGRAPH EDITOR 09/09/2024 6:52 AM PHOTOGRAPH EDITOR us Anastasia Amaro MD LAB BLOOD ORDERABLES Final Result Performing Organization Address City/[facility]/ZIP Co de Phone Number [facility] Department [place] [address] * (ABNORMAL) CBC without differential (09/09/2024 6:24 AM PHOTOGRAPH EDITOR) Pathologist [facility] WBC 8.6 3.8 - 9.9 K/cumm Hgb 10.9(L) 11.9 - 15.5 g/dL [facility] Hct 33.1(L) 35.6 - 45.5 % [facility] Plt 239 150 - 400 K/cumm [facility] MPV 11.0 9.1 - 12.3 fL [facility] RBC 3.77(L) 3.90 - 5.20 M/cumm [facility] MCV 87.8 81.3 - 96.4 fL [facility] MCH 28.9 27.1 - 33.3 pg [facility] MCHC 32.9 32.3 - 35.7 g/dL [facility] RDW CV 13.8 11.1 - 14.9 % [facility] [facility] RDW SD 43.8 35.7 - 48.1 fL [facility] NRBC abs 0.00 0.00 - 0.01 K/cumm [facility] Blood 09/09/2024 6:24 AM PHOTOGRAPH EDITOR 09/09/2024 6:52 AM PHOTOGRAPH EDITOR Anastasia Amaro MD LAB BLOOD ORDERABLES Final Result [facility] Department [place] [address] * Type and screen (09/09/2024 6:24 AM PHOTOGRAPH EDITOR) [facility] [address] ABO Rh O Negative Abiodun, indirect Negative [facility] Comment:Patient has previous antibody history Blood 09/09/2024 6:24 AM PHOTOGRAPH EDITOR 09/09/2024 7:19 AM PHOTOGRAPH EDITOR Narrative [facility] - 09/09/2024 8:51 AM PHOTOGRAPH EDITOR Has the patient had Daratumumab or Isatuximab in the past 6 months?->Unknown us Anastasia Amaro MD LAB BLOOD BANK TEST ORDERA BLES Final Result [facility] Department [place] [address] * US Ob Limited (09/08/2024 10:29 AM PHOTOGRAPH EDITOR) Fetus# Fetus1 VIEWPOINT Placenta Details anterior VIEWPOINT Presentation Vertex; Maternal right- low VIEWPOINT Fetus# Fetus2 VIEWPOINT Placenta Details anterior VIEWPOINT Presentation Vertex; Maternal left- high (presenting) VIEWPOINT Anatomical Region Laterality Modality Abdomen N/A Ultrasound 09/08/2024 10:2 9 AM PHOTOGRAPH EDITOR Impressions 09/08/2024 11:25 AM PHOTOGRAPH EDITOR 1. Mo/di twin IUP at 32w 3d. [...] of TTTS or TAPS sequence. us Sara Egn MD IMG OB US PROCEDURES Final R esult * nonstress test (09/06/2024 8:38 PM PHOTOGRAPH EDITOR) Narrative Anastasia Amaro MD - 09/06/2024 8:38 PM PHOTOGRAPH EDITOR Pauline Simms MD ? 09/06/2024 ??8:41 PM Baby A FHR Baseline: 125 Variability: moderate Accelerations: absent Decelerations: absent in last part of tracing, was initially having small variable decels in monitoring Reactive: Yes Baby B FHR Baseline: 130 Variability: moderate Accelerations: present Decelerations: absent Reactive: Yes 29 y.o. at 32w1d a/f preeclampsia with SF On monitor [id number] Contractions: absent I have reviewed NST and instructed RN to take off monitor Pauline Simms MD us Ana M Rogers MD OB GYNE ORDERABLES Fi nal Result * eGFR (09/06/2024 4:31 AM PHOTOGRAPH EDITOR) eGFR >90 >=60 mL/min/1. 73 m2 Comment: [...] last reviewed 2021. Blood 09/06/2024 4:31 AM PHOTOGRAPH EDITOR 09/06/2024 4:53 AM PHOTOGRAPH EDITOR us Anastasia Amaro MD LAB BLOOD ORDERABLES Final Result [facility] Department [place] [address] * (ABNORMAL) Comprehensive metabolic panel (09/06/2024 4:31 AM PHOTOGRAPH EDITOR) Sodium 138 135 - 145 mmol/L Potassium, pl 3.6 3.3 - 4.9 mmol/L [facility] Chloride 105 97 - 110 mmol/L [facility] CO2 24 22 - 32 mmol/L [facility] Anion gap 9 2 - 15 mmol/L [facility] BUN 7 6 - 25 mg/dL [facility] Creatinine 0.63 0.60 - 1.10 mg/dL [facility] Glucose 62(L) 70 - 199 mg/dL [facility] Comment: Interpretive Data Fasting glucose >/= [...] Calcium 9.3 8.5 - 10.3 mg/dL [facility] Bilirubin, total 0.3 0.1 - 1.2 mg/dL [facility] Protein, pl 6.6 6.5 - 8.5 g/dL [facility] Albumin 3.2(L) 3.5 - 5.0 g/dL [facility] Alk phos 118 40 - 130 Units/L [facility] ALT 23 7 - 45 Units/L [facility] AST 22 10 - 45 Units/L [facility] Blood 09/06/2024 4:31 AM PHOTOGRAPH EDITOR 09/06/2024 4:53 AM PHOTOGRAPH EDITOR us Anastasia Amaro MD LAB BLOOD ORDERABLES Final Result [facility] Department [place] [address] * (ABNORMAL) CBC without differential (09/06/2024 4:31 AM PHOTOGRAPH EDITOR) [facility] Signature WBC 10.3(H) 3.8 - 9.9 K/cumm Hgb 11.7(L) 11.9 - 15.5 g/dL [facility] Hct 34.5(L) 35.6 - 45.5 % [facility] Plt 249 150 - 400 K/cumm [facility] MPV 11.1 9.1 - 12.3 fL [facility] RBC 3.96 3.90 - 5.20 M/cumm [facility] MCV 87.1 81.3 - 96.4 fL [facility] MCH 29.5 27.1 - 33.3 pg [facility] MCHC 33.9 32.3 - 35.7 g/dL [facility] RDW CV 13.6 11.1 - 14.9 % [facility] RDW SD 42.7 35.7 - 48.1 fL [facility] NRBC abs 0.00 0.00 - 0.01 K/cumm [facility] Blood 09/06/2024 4:31 AM PHOTOGRAPH EDITOR 09/06/2024 4:54 AM PHOTOGRAPH EDITOR Anastasia Amaro MD LAB BLOOD ORDERABLES Final Result [facility] Department [place] [address] * Type and screen (09/06/2024 4:31 AM PHOTOGRAPH EDITOR) ABO Rh O Negative Abiodun, indirect Negative [facility] Comment:Patient has previous antibody history Blood 09/06/2024 4:31 AM PHOTOGRAPH EDITOR 09/06/2024 6:11 AM PHOTOGRAPH EDITOR Narrative [facility] - 09/06/2024 7:16 AM PHOTOGRAPH EDITOR Has the patient had Daratumumab or Isatuximab in the past 6 months?->Unknown us Anastasia Amaro MD LAB BLOOD BANK TEST ORDERA BLES Final Result Performing Organization Address [facility]/[place] [address] * Group B streptococcal culture Vaginal/Rectal (09/03/2024 10:29 AM PHOTOGRAPH EDITOR) Pathologist [facility] Report Final Report: Negative Vaginal/Rectal 09/03/2024 10 :29 AM PHOTOGRAPH EDITOR 09/03/2024 10:47 AM PHOTOGRAPH EDITOR Narrative [facility] - 09/07/2024 11:05 AM PHOTOGRAPH EDITOR Testing performed by [facility] ([phone]). us Joellen Julio MD LAB MICROBIOLOGY - GENERAL O RDERABLES Final Result Performing Organization Address [facility] Co de Phone Number [facility] [place] [address] * eGFR (09/03/2024 5:26 AM PHOTOGRAPH EDITOR) eGFR >90 >=60 mL/min/1. 73 m2 Comment: [...] last reviewed 2021. Blood 09/03/2024 5:26 AM PHOTOGRAPH EDITOR 09/03/2024 5:39 AM PHOTOGRAPH EDITOR Anastasia Amaro MD LAB BLOOD ORDERABLES Final Result [facility] One [facility] Department [place] [address] * (ABNORMAL) Comprehensive metabolic panel (09/03/2024 5:26 AM PHOTOGRAPH EDITOR) Pathologist [facility] Sodium 139 135 - 145 mmol/L Potassium, pl 4.0 3.3 - 4.9 mmol/L [facility] Chloride 105 97 - 110 mmol/L [facility] CO2 20(L) 22 - 32 mmol/L [facility] Anion gap 14 2 - 15 mmol/L [facility] BUN 8 6 - 25 mg/dL [facility] Creatinine 0.55(L) 0.60 - 1.10 mg/dL [facility] Glucose 68(L) 70 - 199 mg/dL [facility] Comment: Interpretive Data Fasting glucose >/= [...] Calcium 9.3 8.5 - 10.3 mg/dL [facility] Bilirubin, total 0.3 0.1 - 1.2 mg/dL [facility] Protein, pl 6.4(L) 6.5 - 8.5 g/dL [facility] Albumin 3.3(L) 3.5 - 5.0 g/dL [facility] Alk phos 111 40 - 130 Units/L [facility] ALT 22 7 - 45 Units/L [facility] AST 24 10 - 45 Units/L [facility] Blood 09/03/2024 5:26 AM PHOTOGRAPH EDITOR 09/03/2024 5:39 AM PHOTOGRAPH EDITOR us Anastasia Amaro MD LAB BLOOD ORDERABLES Final Result [facility] One [facility] Department [place] [address] * (ABNORMAL) CBC without differential (09/03/2024 5:26 AM PHOTOGRAPH EDITOR) WBC 12.1(H) 3.8 - 9.9 K/cumm Hgb 11.7(L) 11.9 - 15.5 g/dL [facility] Hct 34.0(L) 35.6 - 45.5 % [facility] Plt 273 150 - 400 K/cumm [facility] MPV 11.0 9.1 - 12.3 fL [facility] RBC 3.97 3.90 - 5.20 M/cumm [facility] MCV 85.6 81.3 - 96.4 fL [facility] MCH 29.5 27.1 - 33.3 pg [facility] MCHC 34.4 32.3 - 35.7 g/dL [facility] RDW CV 13.3 11.1 - 14.9 % [facility] RDW SD 41.7 35.7 - 48.1 fL [facility] NRBC abs 0.00 0.00 - 0.01 K/cumm [facility] Blood 09/03/2024 5:26 AM PHOTOGRAPH EDITOR 09/03/2024 5:39 AM PHOTOGRAPH EDITOR Anastasia Amaro MD LAB BLOOD ORDERABLES Final Result Performing Organization Address [facility] Co de Phone Number [facility] [place] [address] * Type and screen (09/03/2024 5:26 AM PHOTOGRAPH EDITOR) [facility] [address] Abiodun, indirect Negative Comment:Patient has previous antibody history ABO Rh O Negative [facility] Blood 09/03/2024 5:26 AM PHOTOGRAPH EDITOR 09/03/2024 5:32 AM PHOTOGRAPH EDITOR Narrative [facility] - 09/03/2024 6:27 AM PHOTOGRAPH EDITOR Has the patient had Daratumumab or Isatuximab in the past 6 months?->Unknown us Anastasia Amaro MD LAB BLOOD BANK TEST ORDERA BLES Final Result Performing Organization Address [facility] de Phone Number [facility] [place] [address] * ECG 12 lead (09/02/2024 4:33 PM PHOTOGRAPH EDITOR) Pathologist [facility] Ventricular Rate EKG/Min 110 BPM [facility] Atrial Rate 110 BPM [facility] OR-Interval (MSEC) 130 ms [facility] QRS-Interval (MSEC) 82 ms [facility] QT-Interval (MSEC) 340 ms [facility] QTc 460 ms [facility] P [place] 55 degrees [facility] R [place] 22 degrees [facility] T [place] 30 degrees [facility] Diagnosis Sinus tachycardia Otherwise normal ECG No previous ECGs available Confirmed by SAMANTA KAPLAN M.D ([id number]) on 09/06/2024 2:44:26 PM [facility] 09/02/2024 4:33 PM PHOTOGRAPH EDITOR 09/06/2024 2:44 PM PHOTOGRAPH EDITOR us Joellen Julio MD ECG ORDERABLES Final Result Performing Organization Address City/[facility]/ZIP Co de Phone Number [facility] * eGFR (08/31/2024 6:20 AM PHOTOGRAPH EDITOR) eGFR >90 >=60 mL/min/1. 73 m2 Comment: [...] last reviewed 2021. Blood 08/31/2024 6:20 AM PHOTOGRAPH EDITOR 08/31/2024 7:25 AM PHOTOGRAPH EDITOR us Anastasia Amaro MD LAB BLOOD ORDERABLES Final Result Performing Organization Address City/[facility]/ZIP Co de Phone Number [facility] One [facility] Department [place] [address] * (ABNORMAL) Comprehensive metabolic panel (08/31/2024 6:20 AM PHOTOGRAPH EDITOR) Sodium 137 135 - 145 mmol/L Potassium, pl 3.7 3.3 - 4.9 mmol/L [facility] Chloride 103 97 - 110 mmol/L [facility] CO2 22 22 - 32 mmol/L [facility] Anion gap 12 2 - 15 mmol/L [facility] BUN 6 6 - 25 mg/dL [facility] Creatinine 0.56(L) 0.60 - 1.10 mg/dL [facility] Glucose 70 70 - 199 mg/dL [facility] Comment: Interpretive Data Fasting glucose >/= [...] Calcium 9.5 8.5 - 10.3 mg/dL [facility] Bilirubin, total 0.2 0.1 - 1.2 mg/dL [facility] Protein, pl 6.4(L) 6.5 - 8.5 g/dL [facility] Albumin 3.2(L) 3.5 - 5.0 g/dL [facility] Alk phos 103 40 - 130 Units/L [facility] ALT 28 7 - 45 Units/L [facility] AST 25 10 - 45 Units/L [facility] Blood 08/31/2024 6:20 AM PHOTOGRAPH EDITOR 08/31/2024 7:25 AM PHOTOGRAPH EDITOR us Anastasia Amaro MD LAB BLOOD ORDERABLES Final Result [facility] One [facility] Department [place] [address] * (ABNORMAL) CBC without differential (08/31/2024 6:20 AM PHOTOGRAPH EDITOR) WBC 10.5(H) 3.8 - 9.9 K/cumm Hgb 11.5(L) 11.9 - 15.5 g/dL [facility] Hct 34.1(L) 35.6 - 45.5 % [facility] Plt 282 150 - 400 K/cumm [facility] MPV 10.9 9.1 - 12.3 fL [facility] RBC 3.93 3.90 - 5.20 M/cumm [facility] MCV 86.8 81.3 - 96.4 fL [facility] MCH 29.3 27.1 - 33.3 pg [facility] MCHC 33.7 32.3 - 35.7 g/dL [facility] RDW CV 13.7 11.1 - 14.9 % [facility] RDW SD 42.6 35.7 - 48.1 fL [facility] NRBC abs 0.00 0.00 - 0.01 K/cumm [facility] Blood 08/31/2024 6:20 AM PHOTOGRAPH EDITOR 08/31/2024 7:25 AM PHOTOGRAPH EDITOR Anastasia Amaro MD LAB BLOOD ORDERABLES Final Result Performing Organization Address City/[facility] de Phone Number [facility] Department [place] [address] * Type and screen (08/31/2024 6:20 AM PHOTOGRAPH EDITOR) Pathologist [facility] ABO Rh O Negative Abiodun, indirect Negative [facility] Comment:Patient has previous antibody history Blood 08/31/2024 6:20 AM PHOTOGRAPH EDITOR 08/31/2024 7:41 AM PHOTOGRAPH EDITOR Narrative [facility] - 08/31/2024 8:26 AM PHOTOGRAPH EDITOR Has the patient had Daratumumab or Isatuximab in the past 6 months?->Unknown Anastasia Amaro MD LAB BLOOD BANK TEST ORDERA BLES Final Result [facility] Department [place] [address] * nonstress test (08/29/2024 2:32 PM PHOTOGRAPH EDITOR) Narrative Nini Cortez MD - 08/29/2024 2:32 PM PHOTOGRAPH EDITOR Maureen Calix MD ? 08/29/2024 ??3:38 PM nonstress test Date/Time: 08/29/2024 2:32 PM Performed by: Maureen Calix MD Authorized by: Ana M Rogers MD ?? us Ana M Rogers MD OB GYNE ORDERABLES Fi nal Result * nonstress test (08/28/2024 7:47 PM PHOTOGRAPH EDITOR) Narrative Nini Cortez MD - 08/28/2024 7:47 PM PHOTOGRAPH EDITOR Francisca Yun MD ? 08/28/2024 ??7:48 PM A FHR Baseline: 120 Variability: moderate Reactive: Yes Contractions: absent B FHR Baseline: 130 Variability: moderate Reactive: Yes Contractions: absent Comments: No decels x2 I have reviewed NST and instructed RN to take off monitor Francisca Yun MD us Ana M Rogers MD OB GYNE ORDERABLES Fi nal Result * eGFR (08/28/2024 6:00 AM PHOTOGRAPH EDITOR) Pathologist [facility] eGFR >90 >=60 mL/min/1. 73 m2 Comment: [...] last reviewed 2021. Blood 08/28/2024 6:00 AM PHOTOGRAPH EDITOR 08/28/2024 6:13 AM PHOTOGRAPH EDITOR Anastasia Amaro MD LAB BLOOD ORDERABLES Final Result Performing Organization Address City/State/[facility] Co de Phone Number [facility] Department [place] [address] * (ABNORMAL) Comprehensive metabolic panel (08/28/2024 6:00 AM PHOTOGRAPH EDITOR) Sodium 137 135 - 145 mmol/L Potassium, pl 3.6 3.3 - 4.9 mmol/L [facility] Chloride 105 97 - 110 mmol/L [facility] CO2 21(L) 22 - 32 mmol/L [facility] Anion gap 11 2 - 15 mmol/L [facility] BUN 8 6 - 25 mg/dL [facility] Creatinine 0.52(L) 0.60 - 1.10 mg/dL [facility] Glucose 74 70 - 199 mg/dL [facility] Comment: Interpretive Data Fasting glucose >/= [...] Calcium 9.3 8.5 - 10.3 mg/dL [facility] Bilirubin, total 0.2 0.1 - 1.2 mg/dL [facility] Protein, pl 6.2(L) 6.5 - 8.5 g/dL [facility] Albumin 3.2(L) 3.5 - 5.0 g/dL [facility] Alk phos 96 40 - 130 Units/L [facility] ALT 25 7 - 45 Units/L [facility] AST 22 10 - 45 Units/L [facility] Blood 08/28/2024 6:00 AM PHOTOGRAPH EDITOR 08/28/2024 6:13 AM PHOTOGRAPH EDITOR Anastasia Amaro MD LAB BLOOD ORDERABLES Final Result [facility] Department [place] [address] * (ABNORMAL) CBC without differential (08/28/2024 6:00 AM PHOTOGRAPH EDITOR) WBC 10.3(H) 3.8 - 9.9 K/cumm Hgb 11.2(L) 11.9 - 15.5 g/dL [facility] Hct 33.0(L) 35.6 - 45.5 % [facility] Plt 289 150 - 400 K/cumm [facility] MPV 10.7 9.1 - 12.3 fL [facility] RBC 3.78(L) 3.90 - 5.20 M/cumm [facility] MCV 87.3 81.3 - 96.4 fL [facility] MCH 29.6 27.1 - 33.3 pg [facility] MCHC 33.9 32.3 - 35.7 g/dL [facility] RDW CV 13.7 11.1 - 14.9 % [facility] RDW SD 43.6 35.7 - 48.1 fL [facility] NRBC abs 0.00 0.00 - 0.01 K/cumm [facility] Blood 08/28/2024 6:00 AM PHOTOGRAPH EDITOR 08/28/2024 6:20 AM PHOTOGRAPH EDITOR Anastasia Amaro MD LAB BLOOD ORDERABLES Final Result Performing Organization Address [facility] de Phone Number [facility] [place] [address] * Type and screen (08/28/2024 6:00 AM PHOTOGRAPH EDITOR) ABO Rh O Negative Comment:Patient has previous antibody history Abiodun, indirect Negative [facility] Blood 08/28/2024 6:00 AM PHOTOGRAPH EDITOR 08/28/2024 6:54 AM PHOTOGRAPH EDITOR Narrative [facility] - 08/28/2024 7:53 AM PHOTOGRAPH EDITOR Has the patient had Daratumumab or Isatuximab in the past 6 months?->Unknown Anastasia Amaro MD LAB BLOOD BANK TEST ORDERA BLES Final Result Performing Organization Address [facility] de Phone Number [facility] [place] [address] * eGFR (08/25/2024 6:19 AM PHOTOGRAPH EDITOR) eGFR >90 >=60 mL/min/1. 73 m2 Comment: [...] last reviewed 2021. Blood 08/25/2024 6:19 AM PHOTOGRAPH EDITOR 08/25/2024 6:33 AM PHOTOGRAPH EDITOR us Anastasia Amaro MD LAB BLOOD ORDERABLES Final Result [facility] One [facility] Department [place] [address] * (ABNORMAL) Comprehensive metabolic panel (08/25/2024 6:19 AM PHOTOGRAPH EDITOR) [facility] [address] Sodium 139 135 - 145 mmol/L Potassium, pl 3.5 3.3 - 4.9 mmol/L [facility] Chloride 105 97 - 110 mmol/L [facility] CO2 22 22 - 32 mmol/L [facility] Anion gap 12 2 - 15 mmol/L [facility] BUN 6 6 - 25 mg/dL [facility] Creatinine 0.53(L) 0.60 - 1.10 mg/dL [facility] Glucose 70 70 - 199 mg/dL [facility] Comment: Interpretive Data Fasting glucose >/= [...] Calcium 9.2 8.5 - 10.3 mg/dL [facility] Bilirubin, total 0.2 0.1 - 1.2 mg/dL [facility] Protein, pl 6.4(L) 6.5 - 8.5 g/dL [facility] Albumin 3.2(L) 3.5 - 5.0 g/dL [facility] Alk phos 92 40 - 130 Units/L [facility] ALT 22 7 - 45 Units/L [facility] AST 22 10 - 45 Units/L [facility] Blood 08/25/2024 6:19 AM PHOTOGRAPH EDITOR 08/25/2024 6:33 AM PHOTOGRAPH EDITOR us Anastasia Amaro MD LAB BLOOD ORDERABLES Final Result [facility] One [facility] Department [place] [address] * (ABNORMAL) CBC without differential (08/25/2024 6:19 AM PHOTOGRAPH EDITOR) [facility] [address] WBC 10.5(H) 3.8 - 9.9 K/cumm Hgb 11.4(L) 11.9 - 15.5 g/dL [facility] Hct 33.4(L) 35.6 - 45.5 % [facility] Plt 299 150 - 400 K/cumm [facility] MPV 10.6 9.1 - 12.3 fL [facility] RBC 3.90 3.90 - 5.20 M/cumm [facility] MCV 85.6 81.3 - 96.4 fL [facility] MCH 29.2 27.1 - 33.3 pg [facility] MCHC 34.1 32.3 - 35.7 g/dL [facility] RDW CV 13.4 11.1 - 14.9 % [facility] RDW SD 41.7 35.7 - 48.1 fL [facility] NRBC abs 0.00 0.00 - 0.01 K/cumm [facility] Blood 08/25/2024 6:19 AM PHOTOGRAPH EDITOR 08/25/2024 6:32 AM PHOTOGRAPH EDITOR us Anastasia Amaro MD LAB BLOOD ORDERABLES Final Result Performing Organization Address City/[facility] Co de Phone Number [facility] [place] [address] * Type and screen (08/25/2024 6:19 AM PHOTOGRAPH EDITOR) Abiodun, indirect Negative Comment:Patient has previous antibody history ABO Rh O Negative [facility] Blood 08/25/2024 6:19 AM PHOTOGRAPH EDITOR 08/25/2024 7:06 AM PHOTOGRAPH EDITOR Narrative [facility] - 08/25/2024 8:01 AM PHOTOGRAPH EDITOR Has the patient had Daratumumab or Isatuximab in the past 6 months?->Unknown us Anastasia Amaro MD LAB BLOOD BANK TEST ORDERA BLES Final Result Performing Organization Address [facility] Co de Phone Number [facility] Department [place] [address] * US Ob Follow Up (08/24/2024 9:37 AM PHOTOGRAPH EDITOR) Pathologist [facility] Fetus# Fetus1 VIEWPOINT Estimated Weight 1,348 g&grams VIEWPOINT Placenta Details anterior VIEWPOINT Presentation Vertex; Maternal right- low VIEWPOINT Fetus# Fetus2 VIEWPOINT Estimated Weight 1,784 g&grams VIEWPOINT Placenta Details anterior VIEWPOINT Presentation Vertex; Maternal left- high (presenting) VIEWPOINT Anatomical Region Laterality Modality Abdomen N/A Ultrasound 08/24/2024 9:37 AM PHOTOGRAPH EDITOR Impressions 08/24/2024 2:06 PM PHOTOGRAPH EDITOR 1. Presumed Mo/Di twin IUP at 30w [...] Edite d * eGFR (08/22/2024 6:02 AM PHOTOGRAPH EDITOR) eGFR >90 >=60 mL/min/1. 73 m2 Comment: [...] last reviewed 2021. Blood 08/22/2024 6:02 AM PHOTOGRAPH EDITOR 08/22/2024 6:18 AM PHOTOGRAPH EDITOR Anastasia Amaro MD LAB BLOOD ORDERABLES Final Result [facility] One [facility] Department [place] [address] * (ABNORMAL) Comprehensive metabolic panel (08/22/2024 6:02 AM PHOTOGRAPH EDITOR) Sodium 138 135 - 145 mmol/L Potassium, pl 3.7 3.3 - 4.9 mmol/L [facility] Chloride 104 97 - 110 mmol/L [facility] CO2 23 22 - 32 mmol/L [facility] Anion gap 11 2 - 15 mmol/L [facility] BUN 7 6 - 25 mg/dL [facility] Creatinine 0.53(L) 0.60 - 1.10 mg/dL [facility] Glucose 72 70 - 199 mg/dL [facility] Comment: Interpretive Data Fasting glucose >/= [...] Calcium 9.3 8.5 - 10.3 mg/dL [facility] Bilirubin, total 0.2 0.1 - 1.2 mg/dL [facility] Protein, pl 6.6 6.5 - 8.5 g/dL [facility] Albumin 3.2(L) 3.5 - 5.0 g/dL [facility] Alk phos 90 40 - 130 Units/L [facility] ALT 19 7 - 45 Units/L [facility] AST 18 10 - 45 Units/L [facility] Blood 08/22/2024 6:02 AM PHOTOGRAPH EDITOR 08/22/2024 6:18 AM PHOTOGRAPH EDITOR Anastasia Amaro MD LAB BLOOD ORDERABLES Final Result [facility] Department [place] [address] * (ABNORMAL) CBC without differential (08/22/2024 6:02 AM PHOTOGRAPH EDITOR) WBC 12.2(H) 3.8 - 9.9 K/cumm Hgb 11.8(L) 11.9 - 15.5 g/dL [facility] Hct 34.4(L) 35.6 - 45.5 % [facility] Plt 277 150 - 400 K/cumm [facility] [facility] MPV 10.4 9.1 - 12.3 fL [facility] RBC 4.02 3.90 - 5.20 M/cumm [facility] MCV 85.6 81.3 - 96.4 fL [facility] MCH 29.4 27.1 - 33.3 pg [facility] MCHC 34.3 32.3 - 35.7 g/dL [facility] RDW CV 13.6 11.1 - 14.9 % [facility] RDW SD 42.4 35.7 - 48.1 fL [facility] NRBC abs 0.00 0.00 - 0.01 K/cumm [facility] Blood 08/22/2024 6:02 AM PHOTOGRAPH EDITOR 08/22/2024 6:18 AM PHOTOGRAPH EDITOR Anastasia Amaro MD LAB BLOOD ORDERABLES Final Result Performing Organization Address [facility] de Phone Number [facility] [place] [address] * Type and screen (08/22/2024 6:02 AM PHOTOGRAPH EDITOR) Abiodun, indirect Negative Comment:Patient has previous antibody history ABO Rh O Negative [facility] Blood 08/22/2024 6:02 AM PHOTOGRAPH EDITOR 08/22/2024 6:24 AM PHOTOGRAPH EDITOR Narrative [facility] - 08/22/2024 7:25 AM PHOTOGRAPH EDITOR Has the patient had Daratumumab or Isatuximab in the past 6 months?->Unknown Anastasia Amaro MD LAB BLOOD BANK TEST ORDERA BLES Final Result Performing Organization Address [facility] de Phone Number [facility] [place] [address] * eGFR (08/19/2024 6:25 AM PHOTOGRAPH EDITOR) eGFR >90 >=60 mL/min/1. 73 m2 Comment: [...] last reviewed 2021. Blood 08/19/2024 6:25 AM PHOTOGRAPH EDITOR 08/19/2024 7:23 AM PHOTOGRAPH EDITOR us Anastasia Amaro MD LAB BLOOD ORDERABLES Final Result [facility] One [facility] Department [place] [address] * (ABNORMAL) Comprehensive metabolic panel (08/19/2024 6:25 AM PHOTOGRAPH EDITOR) Sodium 138 135 - 145 mmol/L Potassium, pl 3.7 3.3 - 4.9 mmol/L [facility] Chloride 105 97 - 110 mmol/L [facility] CO2 23 22 - 32 mmol/L [facility] Anion gap 10 2 - 15 mmol/L [facility] BUN 7 6 - 25 mg/dL [facility] Creatinine 0.54(L) 0.60 - 1.10 mg/dL [facility] Glucose 68(L) 70 - 199 mg/dL [facility] Comment: Interpretive Data Fasting glucose >/= [...] Calcium 9.3 8.5 - 10.3 mg/dL [facility] Bilirubin, total 0.2 0.1 - 1.2 mg/dL [facility] Protein, pl 6.3(L) 6.5 - 8.5 g/dL [facility] Albumin 3.0(L) 3.5 - 5.0 g/dL [facility] Alk phos 88 40 - 130 Units/L [facility] ALT 13 7 - 45 Units/L [facility] AST 18 10 - 45 Units/L [facility] Blood 08/19/2024 6:25 AM PHOTOGRAPH EDITOR 08/19/2024 7:23 AM PHOTOGRAPH EDITOR us Anastasia Amaro MD LAB BLOOD ORDERABLES Final Result [facility] One [facility] Department [place] [address] * (ABNORMAL) CBC without differential (08/19/2024 6:25 AM PHOTOGRAPH EDITOR) WBC 11.2(H) 3.8 - 9.9 K/cumm Hgb 11.3(L) 11.9 - 15.5 g/dL [facility] Hct 33.9(L) 35.6 - 45.5 % [facility] Plt 249 150 - 400 K/cumm [facility] MPV 10.6 9.1 - 12.3 fL [facility] RBC 3.89(L) 3.90 - 5.20 M/cumm [facility] MCV 87.1 81.3 - 96.4 fL [facility] MCH 29.0 27.1 - 33.3 pg [facility] MCHC 33.3 32.3 - 35.7 g/dL [facility] RDW CV 13.4 11.1 - 14.9 % [facility] RDW SD 42.5 35.7 - 48.1 fL [facility] NRBC abs 0.00 0.00 - 0.01 K/cumm [facility] Blood 08/19/2024 6:25 AM PHOTOGRAPH EDITOR 08/19/2024 7:23 AM PHOTOGRAPH EDITOR Anastasia Amaro MD LAB BLOOD ORDERABLES Final Result Performing Organization Address [facility] Co de Phone Number [facility] Department [place] [address] * Type and screen (08/19/2024 6:25 AM PHOTOGRAPH EDITOR) Abiodun, indirect Negative ABO Rh O Negative [facility] Comment:Patient has previous antibody history Blood 08/19/2024 6:25 AM PHOTOGRAPH EDITOR 08/19/2024 7:31 AM PHOTOGRAPH EDITOR Narrative [facility] - 08/19/2024 8:22 AM PHOTOGRAPH EDITOR Has the patient had Daratumumab or Isatuximab in the past 6 months?->Unknown Anastasia Amaro MD LAB BLOOD BANK TEST ORDERA BLES Final Result Performing Organization Address [facility] de Phone Number [facility] Department [place] [address] * US Ob Limited (08/16/2024 8:35 AM PHOTOGRAPH EDITOR) Fetus# Fetus1 VIEWPOINT Placenta Details anterior VIEWPOINT Presentation Transverse, maternal right-low VIEWPOINT Fetus# Fetus2 VIEWPOINT Placenta Details anterior VIEWPOINT Presentation Vertex; Maternal left- high VIEWPOINT Anatomical Region Laterality Modality Abdomen N/A Ultrasound 08/16/2024 8:36 AM PHOTOGRAPH EDITOR Impressions 08/16/2024 2:23 PM PHOTOGRAPH EDITOR Diamniotic (presumed MCDA) TIUP at 29w1d who [...] Result * Antibody identification (08/16/2024 7:34 AM PHOTOGRAPH EDITOR) Pathologist [facility] Antibody ID 1 Passive Anti-D Blood 08/16/2024 7:34 AM PHOTOGRAPH EDITOR 08/16/2024 7:34 AM PHOTOGRAPH EDITOR us Anastasia Amaro MD LAB BLOOD BANK TEST ORDERA BLES Final Result [facility] [place] [address] * eGFR (08/16/2024 6:15 AM PHOTOGRAPH EDITOR) eGFR >90 >=60 mL/min/1. 73 m2 Comment: [...] last reviewed 2021. Blood 08/16/2024 6:15 AM PHOTOGRAPH EDITOR 08/16/2024 6:29 AM PHOTOGRAPH EDITOR us Anastasia Amaro MD LAB BLOOD ORDERABLES Final Result Performing Organization Address City/State/[facility] Co de Phone Number [facility] One [facility] Department [place] [address] * (ABNORMAL) Comprehensive metabolic panel (08/16/2024 6:15 AM PHOTOGRAPH EDITOR) Sodium 139 135 - 145 mmol/L Potassium, pl 3.4 3.3 - 4.9 mmol/L [facility] Chloride 105 97 - 110 mmol/L [facility] CO2 23 22 - 32 mmol/L [facility] Anion gap 11 2 - 15 mmol/L [facility] BUN 8 6 - 25 mg/dL [facility] Creatinine 0.51(L) 0.60 - 1.10 mg/dL [facility] Glucose 72 70 - 199 mg/dL [facility] Comment: Interpretive Data Fasting glucose >/= [...] Calcium 9.2 8.5 - 10.3 mg/dL [facility] Bilirubin, total 0.2 0.1 - 1.2 mg/dL [facility] Protein, pl 6.4(L) 6.5 - 8.5 g/dL [facility] Albumin 3.2(L) 3.5 - 5.0 g/dL [facility] Alk phos 86 40 - 130 Units/L [facility] ALT 16 7 - 45 Units/L [facility] AST 16 10 - 45 Units/L [facility] Blood 08/16/2024 6:15 AM PHOTOGRAPH EDITOR 08/16/2024 6:29 AM PHOTOGRAPH EDITOR us Anastasia Amaro MD LAB BLOOD ORDERABLES Final Result [facility] One [facility] Department [place] [address] * (ABNORMAL) CBC without differential (08/16/2024 6:15 AM PHOTOGRAPH EDITOR) Pathologist [facility] WBC 10.9(H) 3.8 - 9.9 K/cumm Hgb 11.6(L) 11.9 - 15.5 g/dL [facility] Hct 34.0(L) 35.6 - 45.5 % [facility] Plt 257 150 - 400 K/cumm [facility] MPV 10.4 9.1 - 12.3 fL [facility] RBC 3.95 3.90 - 5.20 M/cumm [facility] MCV 86.1 81.3 - 96.4 fL [facility] MCH 29.4 27.1 - 33.3 pg [facility] MCHC 34.1 32.3 - 35.7 g/dL [facility] RDW CV 13.3 11.1 - 14.9 % [facility] RDW SD 41.5 35.7 - 48.1 fL [facility] NRBC abs 0.00 0.00 - 0.01 K/cumm [facility] Blood 08/16/2024 6:15 AM PHOTOGRAPH EDITOR 08/16/2024 6:30 AM PHOTOGRAPH EDITOR Anastasia Amaro MD LAB BLOOD ORDERABLES Final Result Performing Organization Address City/[facility] Co de Phone Number [facility] Department [place] [address] * (ABNORMAL) Type and screen (08/16/2024 6:15 AM PHOTOGRAPH EDITOR) Abiodun, indirect Positive(A) ABO Rh O Negative [facility] Blood 08/16/2024 6:15 AM PHOTOGRAPH EDITOR 08/16/2024 6:25 AM PHOTOGRAPH EDITOR Narrative [facility] - 08/16/2024 7:34 AM PHOTOGRAPH EDITOR Has the patient had Daratumumab or Isatuximab in the past 6 months?->Unknown Anastasia Amaro MD LAB BLOOD BANK TEST ORDERA BLES Final Result [facility] Department [place] [address] * Thyroid Function [place] (08/16/2024 6:15 AM PHOTOGRAPH EDITOR) TSH 3.83 0.30 - 4.20 mcIUnit/mL Blood 08/16/2024 6:15 AM PHOTOGRAPH EDITOR 08/16/2024 6:29 AM PHOTOGRAPH EDITOR Anastasia Amaro MD LAB BLOOD ORDERABLES Final Result [facility] Department [place] [address] * POCT glucose (08/14/2024 3:06 PM PHOTOGRAPH EDITOR) [facility] [address] Glucose, POC 103 70 - 199 mg/dL Comment:Post Meal Glucose comment 1 Post Meal [facility] Blood 08/14/2024 3:06 PM PHOTOGRAPH EDITOR 08/14/2024 3:06 PM PHOTOGRAPH EDITOR us Anastasia Amaro MD LAB POCT ORDERABLES - JELENA CE Final Result Performing Organization Address [facility] Co de Phone Number [facility] [place] [address] * ECG 12 lead (08/13/2024 9:02 AM PHOTOGRAPH EDITOR) [facility] [address] Ventricular Rate EKG/Min 122 BPM [facility] Atrial Rate 122 BPM [facility] OR-Interval (MSEC) 132 ms [facility] QRS-Interval (MSEC) 80 ms [facility] QT-Interval (MSEC) 324 ms [facility] QTc 461 ms [facility] P [place] 49 degrees [facility] R [place] 18 degrees [facility] T [place] 29 degrees [facility] Diagnosis Sinus tachycardia Otherwise normal ECG When compared with ECG of 04-AUG-2024 17:45, No significant change was found Confirmed by SAMANTA KAPLAN M.D ([id number]) on 08/15/2024 12:21:02 PM [facility] 08/13/2024 9:02 AM PHOTOGRAPH EDITOR 08/15/2024 12:21 PM PHOTOGRAPH EDITOR us Anastasia Amaro MD ECG ORDERABLES Final Resu lt Performing Organization Address City/[facility]/ZIP Co de Phone Number [facility] * Antibody identification (08/13/2024 7:42 AM PHOTOGRAPH EDITOR) [facility] [address] Antibody ID 1 Passive Anti-D Blood 08/13/2024 7:42 AM PHOTOGRAPH EDITOR 08/13/2024 7:42 AM PHOTOGRAPH EDITOR us Anastasia Amaro MD LAB BLOOD BANK TEST ORDERA BLES Final Result Performing Organization Address [facility] Co de Phone Number [facility] Department [place] [address] * eGFR (08/13/2024 5:44 AM PHOTOGRAPH EDITOR) eGFR >90 >=60 mL/min/1. 73 m2 Comment: [...] last reviewed 2021. Blood 08/13/2024 5:44 AM PHOTOGRAPH EDITOR 08/13/2024 6:05 AM PHOTOGRAPH EDITOR us Anastasia Amaro MD LAB BLOOD ORDERABLES Final Result Performing Organization Address City/[facility]/ZIP Co de Phone Number [facility] Department [place] [address] * (ABNORMAL) Comprehensive metabolic panel (08/13/2024 5:44 AM PHOTOGRAPH EDITOR) Sodium 137 135 - 145 mmol/L Potassium, pl 3.7 3.3 - 4.9 mmol/L [facility] Chloride 104 97 - 110 mmol/L [facility] CO2 22 22 - 32 mmol/L [facility] Anion gap 11 2 - 15 mmol/L [facility] BUN 8 6 - 25 mg/dL [facility] Creatinine 0.49(L) 0.60 - 1.10 mg/dL [facility] Glucose 74 70 - 199 mg/dL [facility] Comment: Interpretive Data Fasting glucose >/= [...] 2022. Calcium 9.4 8.5 - 10.3 mg/dL [facility] Bilirubin, total 0.3 0.1 - 1.2 mg/dL [facility] Protein, pl 6.5 6.5 - 8.5 g/dL [facility] Albumin 3.3(L) 3.5 - 5.0 g/dL [facility] Alk phos 85 40 - 130 Units/L [facility] ALT 21 7 - 45 Units/L [facility] AST 19 10 - 45 Units/L [facility] Blood 08/13/2024 5:44 AM PHOTOGRAPH EDITOR 08/13/2024 6:05 AM PHOTOGRAPH EDITOR us Anastasia Amaro MD LAB BLOOD ORDERABLES Final Result [facility] One [facility] Department [place] [address] * (ABNORMAL) CBC without differential (08/13/2024 5:44 AM PHOTOGRAPH EDITOR) Pathologist [facility] WBC 12.4(H) 3.8 - 9.9 K/cumm Hgb 11.8(L) 11.9 - 15.5 g/dL [facility] Hct 34.4(L) 35.6 - 45.5 % [facility] Plt 295 150 - 400 K/cumm [facility] MPV 10.3 9.1 - 12.3 fL [facility] RBC 3.93 3.90 - 5.20 M/cumm [facility] MCV 87.5 81.3 - 96.4 fL [facility] MCH 30.0 27.1 - 33.3 pg [facility] MCHC 34.3 32.3 - 35.7 g/dL [facility] RDW CV 13.6 11.1 - 14.9 % [facility] RDW SD 43.5 35.7 - 48.1 fL [facility] NRBC abs 0.00 0.00 - 0.01 K/cumm [facility] Blood 08/13/2024 5:44 AM PHOTOGRAPH EDITOR 08/13/2024 6:05 AM PHOTOGRAPH EDITOR Anastasia Amaro MD LAB BLOOD ORDERABLES Final Result [facility] [place] [address] * (ABNORMAL) Type and screen (08/13/2024 5:44 AM PHOTOGRAPH EDITOR) Pathologist [facility] ABO Rh O Negative Abiodun, indirect Positive(A) [facility] Blood 08/13/2024 5:44 AM PHOTOGRAPH EDITOR 08/13/2024 6:19 AM PHOTOGRAPH EDITOR Narrative [facility] - 08/13/2024 7:42 AM PHOTOGRAPH EDITOR Has the patient had Daratumumab or Isatuximab in the past 6 months?->Unknown Anastasia Amaro MD LAB BLOOD BANK TEST ORDERA BLES Final Result Performing Organization Address [facility] Co de Phone Number [facility] [place] [address] * RPR Blood (08/13/2024 5:44 AM PHOTOGRAPH EDITOR) RPR Nonreactive Nonreactive Blood 08/13/2024 5:44 AM PHOTOGRAPH EDITOR 08/13/2024 6:05 AM PHOTOGRAPH EDITOR us Anastasia Amaro MD LAB MICROBIOLOGY - GENERAL ORDERABLES Final Result Performing Organization Address [facility] Co de Phone Number [facility] [place] [address] * HIV 1/2 Antibody plus p24 Antigen Blood (08/13/2024 5:44 AM PHOTOGRAPH EDITOR) Pathologist [facility] HIV 1/2 ab + p24 ag Nonreactive Nonreactive Comment:Nonreactive for HIV- 1 antigen and HIV-1/HIV-2 antibodies. No laboratory evidence of HIV infection. If acute HIV infection is suspected, consider testing for HIV-1 RNA. Current interpretive data was last revised on 22. Blood 08/13/2024 5:44 AM PHOTOGRAPH EDITOR 08/13/2024 6:05 AM PHOTOGRAPH EDITOR us Anastasia Amaro MD LAB MICROBIOLOGY - GENERAL ORDERABLES Final Result Performing Organization Address [facility] Co de Phone Number [facility] [place] [address] * GTT 50gm 1hr gestational screen (08/12/2024 11:29 AM PHOTOGRAPH EDITOR) GTT 50g gest screen 106 <=140 mg/dL [...] on 2020. Blood 08/12/2024 11:2 9 AM PHOTOGRAPH EDITOR 08/12/2024 11:41 AM PHOTOGRAPH EDITOR Anastasia Amaro MD LAB BLOOD ORDERABLES Final Result Performing Organization Address [facility] de Phone Number [facility] [place] [address] * Antibody identification (08/10/2024 7:02 AM PHOTOGRAPH EDITOR) [facility] [address] Antibody ID 1 Passive Anti-D Blood 08/10/2024 7:02 AM PHOTOGRAPH EDITOR 08/10/2024 7:02 AM PHOTOGRAPH EDITOR Anastasia Amaro MD LAB BLOOD BANK TEST ORDERA BLES Final Result Performing Organization Address [facility] Phone Number [facility] [place] [address] * eGFR (08/10/2024 4:49 AM PHOTOGRAPH EDITOR) Pathologist [facility] eGFR >90 >=60 mL/min/1. 73 m2 Comment: [...] last reviewed 2021. Blood 08/10/2024 4:49 AM PHOTOGRAPH EDITOR 08/10/2024 5:31 AM PHOTOGRAPH EDITOR us Anastasia Amaro MD LAB BLOOD ORDERABLES Final Result [facility] One [facility] Department [place] [address] * (ABNORMAL) Comprehensive metabolic panel (08/10/2024 4:49 AM PHOTOGRAPH EDITOR) [facility] [address] Sodium 135 135 - 145 mmol/L Potassium, pl 3.5 3.3 - 4.9 mmol/L [facility] Chloride 102 97 - 110 mmol/L [facility] CO2 22 22 - 32 mmol/L [facility] Anion gap 11 2 - 15 mmol/L [facility] BUN 9 6 - 25 mg/dL [facility] Creatinine 0.51(L) 0.60 - 1.10 mg/dL [facility] Glucose 79 70 - 199 mg/dL [facility] Comment: Interpretive Data Fasting glucose >/= [...] Calcium 9.2 8.5 - 10.3 mg/dL [facility] Bilirubin, total 0.2 0.1 - 1.2 mg/dL [facility] Protein, pl 6.6 6.5 - 8.5 g/dL [facility] Albumin 3.2(L) 3.5 - 5.0 g/dL [facility] Alk phos 85 40 - 130 Units/L [facility] ALT 22 7 - 45 Units/L [facility] AST 19 10 - 45 Units/L [facility] Blood 08/10/2024 4:49 AM PHOTOGRAPH EDITOR 08/10/2024 5:31 AM PHOTOGRAPH EDITOR us Anastasia Amaro MD LAB BLOOD ORDERABLES Final Result [facility] One [facility] Department [place] [address] * (ABNORMAL) CBC without differential (08/10/2024 4:49 AM PHOTOGRAPH EDITOR) [facility] [address] WBC 11.7(H) 3.8 - 9.9 K/cumm Hgb 11.7(L) 11.9 - 15.5 g/dL [facility] Hct 35.0(L) 35.6 - 45.5 % [facility] Plt 293 150 - 400 K/cumm [facility] MPV 10.5 9.1 - 12.3 fL [facility] RBC 4.00 3.90 - 5.20 M/cumm [facility] MCV 87.5 81.3 - 96.4 fL [facility] MCH 29.3 27.1 - 33.3 pg [facility] MCHC 33.4 32.3 - 35.7 g/dL [facility] RDW CV 13.7 11.1 - 14.9 % [facility] RDW SD 43.8 35.7 - 48.1 fL [facility] NRBC abs 0.00 0.00 - 0.01 K/cumm [facility] Blood 08/10/2024 4:49 AM PHOTOGRAPH EDITOR 08/10/2024 5:42 AM PHOTOGRAPH EDITOR Anastasia Amaro MD LAB BLOOD ORDERABLES Final Result Performing Organization Address City/[facility]/ZIP Co de Phone Number [facility] [place] [address] * (ABNORMAL) Type and screen (08/10/2024 4:49 AM PHOTOGRAPH EDITOR) Abiodun, indirect Positive(A) ABO Rh O Negative [facility] Blood 08/10/2024 4:49 AM PHOTOGRAPH EDITOR 08/10/2024 6:04 AM PHOTOGRAPH EDITOR Narrative [facility] - 08/10/2024 7:02 AM PHOTOGRAPH EDITOR Has the patient had Daratumumab or Isatuximab in the past 6 months?->Unknown Anastasia Amaro MD LAB BLOOD BANK TEST ORDERA BLES Final Result Performing Organization Address [facility] Co de Phone Number [facility] [place] [address] * US Ob 14 Weeks Or Over (08/09/2024 9:47 AM PHOTOGRAPH EDITOR) Fetus# Fetus1 VIEWPOINT Placenta Details anterior VIEWPOINT Presentation Vertex; Maternal right- low VIEWPOINT Fetus# Fetus2 VIEWPOINT Placenta Details anterior VIEWPOINT Presentation Vertex; Maternal left- high VIEWPOINT Anatomical Region Laterality Modality Abdomen N/A Ultrasound 08/09/2024 9:50 AM PHOTOGRAPH EDITOR Impressions 08/09/2024 11:52 AM PHOTOGRAPH EDITOR Diamniotic (presumed MCDA) TIUP at 28w1d who [...] Result * Antibody identification (08/07/2024 6:51 AM PHOTOGRAPH EDITOR) Antibody ID 1 Passive Anti-D Blood 08/07/2024 6:51 AM PHOTOGRAPH EDITOR 08/07/2024 6:51 AM PHOTOGRAPH EDITOR us Anastasia Amaro MD LAB BLOOD BANK TEST ORDERA BLES Final Result [facility] One [facility] [place] [address] * eGFR (08/07/2024 5:00 AM PHOTOGRAPH EDITOR) Pathologist [facility] eGFR >90 >=60 mL/min/1. 73 m2 Comment: [...] last reviewed 2021. Blood 08/07/2024 5:00 AM PHOTOGRAPH EDITOR 08/07/2024 4:56 AM PHOTOGRAPH EDITOR us Anastasia Amaro MD LAB BLOOD ORDERABLES Final Result [facility] One [facility] Department [place] [address] * (ABNORMAL) Comprehensive metabolic panel (08/07/2024 5:00 AM PHOTOGRAPH EDITOR) Pathologist [facility] Sodium 138 135 - 145 mmol/L Potassium, pl 3.6 3.3 - 4.9 mmol/L [facility] Chloride 105 97 - 110 mmol/L [facility] CO2 22 22 - 32 mmol/L [facility] Anion gap 11 2 - 15 mmol/L [facility] BUN 7 6 - 25 mg/dL [facility] Creatinine 0.47(L) 0.60 - 1.10 mg/dL [facility] Glucose 84 70 - 199 mg/dL [facility] Comment: Interpretive Data Fasting glucose >/= [...] Calcium 9.3 8.5 - 10.3 mg/dL [facility] Bilirubin, total 0.2 0.1 - 1.2 mg/dL [facility] Protein, pl 6.3(L) 6.5 - 8.5 g/dL [facility] Albumin 3.1(L) 3.5 - 5.0 g/dL [facility] Alk phos 80 40 - 130 Units/L [facility] ALT 26 7 - 45 Units/L [facility] AST 16 10 - 45 Units/L [facility] Blood 08/07/2024 5:00 AM PHOTOGRAPH EDITOR 08/07/2024 4:56 AM PHOTOGRAPH EDITOR Anastasia Amaro MD LAB BLOOD ORDERABLES Final Result [facility] One [facility] Department of Laboratories [place], [place] [id number] * (ABNORMAL) CBC without differential (08/07/2024 5:00 AM PHOTOGRAPH EDITOR) WBC 10.2(H) 3.8 - 9.9 K/cumm Hgb 12.0 11.9 - 15.5 g/dL [facility] Hct 35.0(L) 35.6 - 45.5 % [facility] Plt 261 150 - 400 K/cumm [facility] MPV 10.2 9.1 - 12.3 fL [facility] RBC 4.02 3.90 - 5.20 M/cumm [facility] MCV 87.1 81.3 - 96.4 fL [facility] MCH 29.9 27.1 - 33.3 pg [facility] MCHC 34.3 32.3 - 35.7 g/dL [facility] RDW CV 13.8 11.1 - 14.9 % [facility] RDW SD 44.4 35.7 - 48.1 fL [facility] NRBC abs 0.00 0.00 - 0.01 K/cumm [facility] Blood 08/07/2024 5:00 AM PHOTOGRAPH EDITOR 08/07/2024 4:56 AM PHOTOGRAPH EDITOR Anastasia Amaro MD LAB BLOOD ORDERABLES Final Result Performing Organization Address City/[facility] Co de Phone Number [facility] [place] [place] [address] * (ABNORMAL) Type and screen (08/07/2024 4:45 AM PHOTOGRAPH EDITOR) Abiodun, indirect Positive(A) ABO Rh O Negative [facility] Blood 08/07/2024 4:45 AM PHOTOGRAPH EDITOR 08/07/2024 5:12 AM PHOTOGRAPH EDITOR Narrative [facility] - 08/07/2024 6:51 AM PHOTOGRAPH EDITOR Has the patient had Daratumumab or Isatuximab in the past 6 months?->Unknown us Anastasia Amaro MD LAB BLOOD BANK TEST ORDERA BLES Final Result Performing Organization Address City/[facility]/ZIP Co de Phone Number [facility] [place] [address] * CT Chest PE (CTA) W Contrast [...] B RNA Not Detected Not Detected [facility] RSV RNA Not Detected Not Detected [facility] COVID-19 RNA Not Detected Not Detected [facility] Coronavirus 229E RNA Not Detected Not Detected [facility] Coronavirus HKU1 RNA Not Detected Not Detected [facility] Coronavirus NL63 RNA Not Detected Not Detected [facility] Coronavirus OC43 RNA Not Detected Not Detected [facility] Adenovirus DNA Not Detected Not Detected [facility] Metapneumovirus RNA Not Detected Not Detected [facility] Rhinovirus/Enterov irus RNA Not Detected Not Detected [facility] Parainfluenza 1 RNA Not Detected Not Detected [facility] Parainfluenza 2 RNA Not Detected Not Detected [facility] Parainfluenza 3 RNA Not Detected Not Detected [facility] Parainfluenza 4 RNA Not Detected Not Detected [facility] B. pertussis DNA Not Detected Not Detected [facility] B. parapertussis DNA Not Detected Not Detected [facility] C. pneumoniae DNA Not Detected Not Detected [facility] M. pneumoniae DNA Not Detected Not Detected [facility] Nasopharyngeal 08/04/2024 6: 28 PM CDT 08/04/2024 6:48 PM CDT Narrative [facility] - 08/04/2024 8:16 PM CDT Is the Patient experiencing symptoms consistent with COVID?->No Surveillance testing for transplant patient?->No ??Interpretive Data The GOOD FilmArray Respiratory Panel (RP2.1) assay is a [...] assay has FDA clearance for testing of GROUP HOME WORKER swabs. ??The performance of additional specimen types has been assessed by the performing laboratory. ??The performance characteristics of this assay have been determined by [facility] Molecular Infectious Disease Laboratory. Current interpretive data was last revised on 22. us Anastasia Amaro MD LAB MICROBIOLOGY - GENERAL ORDERABLES Final Result Performing Organization Address City/[facility] Co de Phone Number [facility] One [facility] Department [place] [address] * (ABNORMAL) D-dimer, quantitative (08/04/2024 6:28 PM [...] BLOOD ORDERABLES Final Result Performing Organization Address City/[facility]/ZIP Co de Phone Number [facility] One [facility] Department [place] [address] * ECG 12 lead (08/04/2024 5:45 PM CDT) Ventricular Rate EKG/Min 131 BPM [facility] Atrial Rate 131 BPM [facility] OR-Interval (MSEC) 126 ms [facility] QRS-Interval (MSEC) 74 ms [facility] QT-Interval (MSEC) 300 ms [facility] QTc 443 ms [facility] P [place] 53 degrees [facility] R [place] 8 degrees [facility] T [place] 33 degrees [facility] Diagnosis Sinus tachycardia Otherwise normal ECG Confirmed by Kaci Estrella MD ([id number]) on 08/08/2024 3:27:38 AM [facility] 08/04/2024 5:45 PM CDT 08/08/2024 3:27 AM PHOTOGRAPH EDITOR us Anastasia Amaro MD ECG ORDERABLES Final Resu lt Performing Organization Address [facility] Co de Phone Number [facility] * ECG 12 lead (08/04/2024 11:54 AM CDT) Ventricular Rate EKG/Min 110 BPM [facility] Atrial Rate 110 BPM [facility] OR-Interval (MSEC) 122 ms [facility] QRS-Interval (MSEC) 78 ms [facility] QT-Interval (MSEC) 334 ms [facility] QTc 452 ms [facility] P [place] 52 degrees [facility] R [place] 5 degrees [facility] T [place] 25 degrees [facility] Diagnosis Sinus tachycardia Otherwise normal ECG No previous ECGs available Confirmed by SAMANTA KAPLAN M.D ([id number]) on 08/04/2024 1:23:30 PM [facility] 08/04/2024 11:5 4 AM CDT 08/04/2024 1:23 PM CDT us Anastasia Amaro MD ECG ORDERABLES Final Resu lt Performing Organization Address City/[facility]/ZIP Co de Phone Number [facility] * Antibody identification (08/04/2024 6:12 AM CDT) Antibody ID 1 Passive Anti-D Blood 08/04/2024 6:12 AM CDT 08/04/2024 6:12 AM CDT us Anastasia Amaro MD LAB BLOOD BANK TEST ORDERA BLES Final Result [facility] One [facility] Department [place] [address] * eGFR (08/04/2024 4:48 AM CDT) eGFR [...] MD LAB BLOOD ORDERABLES Final Result [facility] One [facility] Department [place] [address] * (ABNORMAL) Comprehensive metabolic panel (08/04/2024 4:48 AM CDT) Sodium 137 135 - 145 mmol/L Potassium, pl 3.8 3.3 - 4.9 mmol/L [facility] Chloride 104 97 - 110 mmol/L [facility] CO2 22 22 - 32 mmol/L [facility] Anion gap 11 2 - 15 mmol/L [facility] BUN 8 6 - 25 mg/dL [facility] Creatinine 0.44(L) 0.60 - 1.10 mg/dL [facility] Glucose 77 70 - 199 mg/dL [facility] Comment: Interpretive Data Fasting glucose >/= [...] 2022. Calcium 9.2 8.5 - 10.3 mg/dL [facility] Bilirubin, total 0.3 0.1 - 1.2 mg/dL [facility] Protein, pl 6.6 6.5 - 8.5 g/dL [facility] Albumin 3.3(L) 3.5 - 5.0 g/dL [facility] Alk phos 82 40 - 130 Units/L [facility] ALT 23 7 - 45 Units/L [facility] AST 25 10 - 45 Units/L [facility] Blood 08/04/2024 4:48 AM CDT 08/04/2024 5:02 AM CDT Anastasia Amaro MD LAB BLOOD ORDERABLES Final Result Performing Organization Address City/[facility]/ZIP Co de Phone Number [facility] [place] [address] * (ABNORMAL) CBC without differential (08/04/2024 4:48 AM CDT) WBC 12.6(H) 3.8 - 9.9 K/cumm Hgb 12.4 11.9 - 15.5 g/dL [facility] Hct 36.5 35.6 - 45.5 % [facility] Plt 278 150 - 400 K/cumm [facility] MPV 10.2 9.1 - 12.3 fL [facility] RBC 4.17 3.90 - 5.20 M/cumm [facility] MCV 87.5 81.3 - 96.4 fL [facility] MCH 29.7 27.1 - 33.3 pg [facility] MCHC 34.0 32.3 - 35.7 g/dL [facility] RDW CV 14.1 11.1 - 14.9 % [facility] RDW SD 45.0 35.7 - 48.1 fL [facility] NRBC abs 0.00 0.00 - 0.01 K/cumm [facility] Blood 08/04/2024 4:48 AM CDT 08/04/2024 5:02 AM CDT Anastasia Amaro MD LAB BLOOD ORDERABLES Final Result [facility] One [facility] Department [place] [address] * (ABNORMAL) Type and screen (08/04/2024 4:48 AM CDT) ABO Rh O Negative Abiodun, indirect Positive(A) [facility] Blood 08/04/2024 4:48 AM CDT 08/04/2024 4:59 AM CDT Narrative [facility] - 08/04/2024 6:12 AM CDT Has the patient had Daratumumab or Isatuximab in the past 6 months?->Unknown us Anastasia Amaro MD LAB BLOOD BANK TEST ORDERA BLES Final Result [facility] One [facility] Department [place] [address] * Cardiolipin antibody, IgG and IgM (08/04/2024 [...] [place]. These results were obtained with the [employer] Interactive 2200 System. Cardiolipin IgG values obtained with different manufacturers' assay methods may not be used interchangeably. Current interpretive data was last revised on 2017. Cardiolipin, IgM 0.7 <=19.9 MPL U/mL [facility] Comment: Interpretive Data Negative: <20 MPL [...] antibodies. ??These results were obtained with the [employer] Interactive 2200 System. Cardiolipin IgM values obtained with different manufacturers' assay methods may not be used interchangeably. Current interpretive data was last revised on 2017. Blood 08/04/2024 4:48 AM CDT 08/04/2024 5:02 AM CDT Anastasia Amaro MD LAB BLOOD ORDERABLES Final Result [facility] One [facility] Department [place] [address] * Beta 2 glycoprotein IgM Ab (08/04/2024 4:48 AM CDT) [facility] [address] Beta-2 glycoprotein I, IgM 0.6 <=19.9 units/mL [...] BLOOD ORDERABLES Final Result Performing Organization Address [facility] de Phone Number [facility] [place] [address] * Beta 2 glycoprotein IgG Ab (08/04/2024 4:48 AM CDT) [facility] [address] Beta-2 glycoprotein I, IgG <1.4 <=19.9 units/mL Comment: Interpretive Data Negative: <20 U/mL Positive: > or = 20 U/mL ? Beta-2 glycoprotein 1 (Beta-2 GP1) antibodies are a more specific marker of thrombotic risk. It is expected that some samples will be ACL positive and Beta- 2 [id number]. In order to improve specificity, the International Congress on Antiphospholipid Antibodies recommends Beta-2 GP1 antibodies of IgG or IgM isotype ??(> the 99th percentile), obtained twice, at least 12 weeks apart, to support a diagnosis of antiphospholipid syndrome. The cutoff for this assay was developed from data based on the 99th percentile. These results were obtained with the [employer]lex 2200 System. Beta 2GP1 IgG values obtained with different manufacturers' assay methods may not be used interchangeably. Current interpretive data was last revised on 2017. Blood 08/04/2024 4:48 AM CDT 08/04/2024 5:02 AM CDT Anastasia Amaro MD LAB BLOOD ORDERABLES Final Result Performing Organization Address [facility] Co de Phone Number [facility] [place] [address] * Lupus Anticoagulant Panel plus Reflexes (08/04/2024 4:48 AM CDT) PT 11.6 9.7 - 13.0 sec INR 1.07 0.90 - 1.20 [facility] Comment: Interpretive data Oral anticoagulant therapeutic ranges: Venous thromboembolism prophylaxis or treatment: 2.0-3.0 CARDIOLOGY Standard range: 2.0-3.0 High-intensity range: 2.5-3.5 Refer to indication-specific guidelines for appropriate target ranges for prosthetic heart valve replacement. Current interpretive data was last revised on 2019. aPTT 29 28 - 38 sec [facility] Comment: Interpretive Data Heparin therapeutic range: 66.0 - 100.0 seconds. Range based on correlation with therapeutic heparin activity range of 0.3 - 0.7 Units/mL. Current interpretive data was last revised on 2023. DRVVT screen ratio 1.13 0.00 - 1.20 Ratio [facility] SCT Screen Ratio 1.01 0.00 - 1.16 Ratio [facility] Lupus anticoagulant, interp Negative [facility] Comment: Interpretive data ?? Lupus anticoagulants [...] lupus anticoagulant detection. J Thromb Haemost. 2009; 7:4641-7969. 2. Andrew Loera. et al. International consensus statement on an update of the classification criteria for definite antiphospholipid syndrome (APS). J Thromb Haemost. 2006; 4:295-306. Current interpretive data was last revised on 2018 Blood 08/04/2024 4:48 AM CDT 08/04/2024 5:21 AM CDT us Anastasia Amaro MD LAB BLOOD ORDERABLES Final Result Performing Organization Address City/State/[facility] Co wy Phone Number [facility] One [facility] Department [place] [address] * Echocardiogram (08/03/2024 4:07 PM CDT) Anatomical Region Laterality Modality Ultrasound 08/03/2024 1:22 PM CDT Narrative 08/03/2024 5:10 PM CDT ?[facility] Station ? Echo Report ?One [facility] [address], [place], [place] ??[address] ?[phone] ? Patient Name: SUKI LEON ? Study Type: Echo ? Patient : 1995 ? Exam Date: ??08/03/2024 ? Age: ?29Y ? Exam Time: ??1:22:00 PM ? Referring MD: SIM HUSAIN ? Height: ? 65in ? Weight: ? 284lb ? BSA: ?2.3 m2 ? Sex: FEMALE ? BP: ? 139/83 ? Controller Operations And Hr Manager: May Quick ? Pat. Stat.: Inpatient ?Room: 6800 ? Account:[id number] ? Indications for Study:MONO-DI TWINS Procedures: COLORFLOW, [...] Normal. Septum: PFO. Defect sz. Moderate ??Shunt: Fikgu-xv-Aflp ?? Annular Dimensions: ??Ao Valve: 0.52 cm [...] Procedure Note Macie Vickers MD - 08/03/2024 [facility] Echo Report One [address] [address] Patient Name: SUKI LEON Study Type: Echo Patient : 1995 Exam Date: 08/03/2024 Age: 29Y Exam Time: 1:22:00 PM Referring MD: SIM HUSAIN Height: 65in Weight: 284lb BSA: 2.3 m2 Sex: FEMALE BP: 139/83 Controller Operations And Hr Manager: May Webber Stat.: Inpatient Room: [facility] Account:[id number] Indications for Study:MONO-DI TWINS Procedures: COLORFLOW, DOPPLER [...] Normal. Septum: PFO. Defect sz. Moderate Shunt: Nnylo-vg-Ywae Annular Dimensions: Ao Valve: 0.52 cm (+0.79) [...] AM CDT Narrative 08/03/2024 4:30 PM CDT ?[facility] Heart [facility] ? Echo Report ?One [facility] [address] ??[address] ?[phone] ? Patient Name: SUKI LEON ? Study Type: Echo ? Patient : 1995 ? Exam Date: ??08/03/2024 ? Age: ?29Y ? Exam Time: ??11:38:00 AM ? Referring MD: SIM HUSAIN ? Height: ? 65in ? Weight: ? 284lb ? BSA: ?2.3 m2 ? Sex: FEMALE ? BP: ? 139/83 ? Controller Operations And Hr Manager: May Quick ? Pat. Stat.: Inpatient ?Room: 6800 ? Account:[id number] ? Indications for Study:AORTIC ECTASIA. 747.29, MONO-DI [...] Normal. Septum: PFO. Defect sz. Moderate ??Shunt: Iwbkb-ik-Duul ?? Ventricles: D-looped ??LV size: Normal. LV [...] Procedure Note Macie Vickers MD - 08/03/2024 [facility] Heart [facility] Echo Report [facility] [address], [place] [address] Patient Name: SUKI LEON Study Type: Echo Patient : 1995 Exam Date: 08/03/2024 Age: 29Y Exam Time: 11:38:00 AM Referring MD: SIM HUSAIN Height: 65in Weight: 284lb BSA: 2.3 m2 Sex: FEMALE BP: 139/83 Controller Operations And Hr Manager: May Quick Pat. Stat.: Inpatient Room: [facility] Account:[id number] Indications for Study:AORTIC ECTASIA. 747.29, MONO-DI TWINS [...] Normal. Septum: PFO. Defect sz. Moderate Shunt: Sjaul-zh-Ldap Ventricles: D-looped LV size: Normal. LV function:Normal. [...] was previously determined to bemonochorionic by the [facility] practice. Anatomic surveys were alsocompleted there. [...] CDT 08/01/2024 4:24 PM CDT Narrative [facility] - 08/04/2024 11:19 AM CDT Testing performed by [facility] Microbiology Laboratory ([phone]). us Millicent Duran NP LAB MICROBIOLOGY - GENERAL ORDERABLES Final Result [facility] One [facility] [place] [address] * eGFR (08/01/2024 4:33 AM CDT) eGFR [...] Amaro MD LAB BLOOD ORDERABLES Final Result [facility] Department [place] [address] * (ABNORMAL) Comprehensive metabolic panel (08/01/2024 4:33 AM CDT) Sodium 140 135 - 145 mmol/L Potassium, pl 3.8 3.3 - 4.9 mmol/L [facility] Chloride 106 97 - 110 mmol/L [facility] CO2 23 22 - 32 mmol/L [facility] Anion gap 11 2 - 15 mmol/L [facility] BUN 7 6 - 25 mg/dL [facility] Creatinine 0.46(L) 0.60 - 1.10 mg/dL [facility] Glucose 75 70 - 199 mg/dL [facility] Comment: Interpretive Data Fasting glucose >/= [...] Calcium 9.2 8.5 - 10.3 mg/dL [facility] Bilirubin, total 0.2 0.1 - 1.2 mg/dL [facility] Protein, pl 6.1(L) 6.5 - 8.5 g/dL [facility] Albumin 3.1(L) 3.5 - 5.0 g/dL [facility] Alk phos 69 40 - 130 Units/L [facility] ALT 30 7 - 45 Units/L [facility] AST 28 10 - 45 Units/L [facility] Blood 08/01/2024 4:33 AM CDT 08/01/2024 4:48 AM CDT us Anastasia Amaro MD LAB BLOOD ORDERABLES Final Result [facility] One [facility] Department of Laboratories [place], [place] [id number] * (ABNORMAL) CBC without differential (08/01/2024 4:33 AM CDT) [facility] [address] WBC 10.6(H) 3.8 - 9.9 K/cumm Hgb 11.7(L) 11.9 - 15.5 g/dL [facility] Hct 35.1(L) 35.6 - 45.5 % [facility] Plt 269 150 - 400 K/cumm [facility] MPV 9.9 9.1 - 12.3 fL [facility] RBC 3.96 3.90 - 5.20 M/cumm [facility] MCV 88.6 81.3 - 96.4 fL [facility] MCH 29.5 27.1 - 33.3 pg [facility] MCHC 33.3 32.3 - 35.7 g/dL [facility] RDW CV 14.3 11.1 - 14.9 % [facility] RDW SD 46.5 35.7 - 48.1 fL [facility] NRBC abs 0.00 0.00 - 0.01 K/cumm [facility] Blood 08/01/2024 4:33 AM CDT 08/01/2024 4:48 AM CDT us Anastasia Amaro MD LAB BLOOD ORDERABLES Final Result Performing Organization Address City/[facility]/ZIP Co de Phone Number [facility] [place] [address] * Type and screen (08/01/2024 4:33 AM CDT) Pathologist [facility] Abiodun, indirect Negative ABO Rh O Negative [facility] Blood 08/01/2024 4:33 AM CDT 08/01/2024 5:12 AM CDT Narrative [facility] - 08/01/2024 6:16 AM CDT Has the patient had Daratumumab or Isatuximab in the past 6 months?->Unknown us Anastasia Amaro MD LAB BLOOD BANK TEST ORDERA BLES Final Result [facility] [place] [address] * (ABNORMAL) CBC without differential (07/31/2024 5:09 AM CDT) Pathologist [facility] WBC 11.0(H) 3.8 - 9.9 K/cumm Hgb 10.8(L) 11.9 - 15.5 g/dL [facility] Hct 33.1(L) 35.6 - 45.5 % [facility] Plt 257 150 - 400 K/cumm [facility] MPV 10.3 9.1 - 12.3 fL [facility] RBC 3.71(L) 3.90 - 5.20 M/cumm [facility] MCV 89.2 81.3 - 96.4 fL [facility] MCH 29.1 27.1 - 33.3 pg [facility] MCHC 32.6 32.3 - 35.7 g/dL [facility] RDW CV 14.3 11.1 - 14.9 % [facility] RDW SD 46.8 35.7 - 48.1 fL [facility] NRBC abs 0.02(H) 0.00 - 0.01 K/cumm [facility] Blood 07/31/2024 5:09 AM CDT 07/31/2024 5:27 AM CDT us Anastasia Amaro MD LAB BLOOD ORDERABLES Final Result Performing Organization Address City/[facility]/ZIP Co de Phone Number [facility] Department [place] [address] * Magnesium (07/31/2024 5:07 AM CDT) [facility] [address] Magnesium 1.9 1.4 - 2.5 mg/dL Blood 07/31/2024 5:07 AM CDT 07/31/2024 5:26 AM CDT Anastasia Amaro MD LAB BLOOD ORDERABLES Final Result Performing Organization Address City/[facility]/ZIP Co de Phone Number [facility] [place] [address] * eGFR (07/30/2024 4:49 AM CDT) eGFR [...] MD LAB BLOOD ORDERABLES Final Result [facility] One [facility] [place] [address] * (ABNORMAL) Comprehensive metabolic panel (07/30/2024 4:49 AM CDT) [facility] [address] Sodium 140 135 - 145 mmol/L Potassium, pl 3.9 3.3 - 4.9 mmol/L [facility] Chloride 108 97 - 110 mmol/L [facility] CO2 22 22 - 32 mmol/L [facility] Anion gap 10 2 - 15 mmol/L [facility] BUN 5(L) 6 - 25 mg/dL [facility] Creatinine 0.46(L) 0.60 - 1.10 mg/dL [facility] Glucose 100 70 - 199 mg/dL [facility] Comment: Interpretive Data Fasting glucose >/= [...] Calcium 8.6 8.5 - 10.3 mg/dL [facility] Bilirubin, total 0.3 0.1 - 1.2 mg/dL [facility] Protein, pl 6.2(L) 6.5 - 8.5 g/dL [facility] Albumin 3.2(L) 3.5 - 5.0 g/dL [facility] Alk phos 70 40 - 130 Units/L [facility] ALT 22 7 - 45 Units/L [facility] AST 23 10 - 45 Units/L [facility] Blood 07/30/2024 4:49 AM CDT 07/30/2024 5:02 AM CDT us Anastasia Amaro MD LAB BLOOD ORDERABLES Final Result [facility] One [facility] [place] [address] * (ABNORMAL) CBC without differential (07/30/2024 4:49 AM CDT) [facility] Signature WBC 10.2(H) 3.8 - 9.9 K/cumm Hgb 10.9(L) 11.9 - 15.5 g/dL [facility] Hct 32.5(L) 35.6 - 45.5 % [facility] Plt 262 150 - 400 K/cumm [facility] MPV 10.0 9.1 - 12.3 fL [facility] RBC 3.65(L) 3.90 - 5.20 M/cumm [facility] MCV 89.0 81.3 - 96.4 fL [facility] MCH 29.9 27.1 - 33.3 pg [facility] MCHC 33.5 32.3 - 35.7 g/dL [facility] RDW CV 14.4 11.1 - 14.9 % [facility] RDW SD 46.5 35.7 - 48.1 fL [facility] NRBC abs 0.00 0.00 - 0.01 K/cumm [facility] Blood 07/30/2024 4:49 AM CDT 07/30/2024 5:02 AM CDT us Anastasia Amaro MD LAB BLOOD ORDERABLES Final Result Performing Organization Address [facility] Co de Phone Number [facility] Department [place] [address] * Magnesium (07/30/2024 4:49 AM CDT) Magnesium 2.3 1.4 - 2.5 mg/dL Blood 07/30/2024 4:49 AM CDT 07/30/2024 5:02 AM CDT Anastasia Amaro MD LAB BLOOD ORDERABLES Final Result Performing Organization Address City/[facility]/ZIP Co de Phone Number [facility] [place] [address] * Check Sample (07/29/2024 6:47 AM CDT) ABO Rh O Negative [facility] OTHER 07/29/2024 6:47 AM CDT 07/29/2024 7:10 AM CDT Anastasia Amaro MD LAB BLOOD ORDERABLES Final Result [facility] One [facility] Department [place] [address] BJ * eGFR (07/29/2024 5:43 AM CDT) Pathologist [facility] eGFR >90 >=60 mL/min/1. 73 m2 Comment: [...] ORDERABLES Final Result [facility] One [facility] Department [place] [address] * (ABNORMAL) Magnesium (07/29/2024 5:43 AM CDT) Magnesium 3.7(H) 1.4 - 2.5 mg/dL Blood 07/29/2024 5:43 AM CDT 07/29/2024 6:36 AM CDT Anastasia Amaro MD LAB BLOOD ORDERABLES Final Result Performing Organization Address [facility] de Phone Number [facility] [place] [address] * RPR Blood (07/29/2024 5:43 AM CDT) [facility] [address] RPR Nonreactive Nonreactive Blood 07/29/2024 5:43 AM CDT 07/29/2024 6:36 AM CDT Anastasia Amaro MD LAB MICROBIOLOGY - GENERAL ORDERABLES Final Result Performing Organization Address [facility] Phone Number [facility] [place] [address] * HIV 1/2 Antibody plus p24 Antigen Blood (07/29/2024 5:43 AM CDT) [facility] [address] HIV 1/2 ab + p24 ag Nonreactive Nonreactive Comment:Nonreactive for HIV- 1 antigen and HIV-1/HIV-2 antibodies. No laboratory evidence of HIV infection. If acute HIV infection is suspected, consider testing for HIV-1 RNA. Current interpretive data was last revised on 22. Blood 07/29/2024 5:43 AM CDT 07/29/2024 6:36 AM CDT Anastasia Amaro MD LAB MICROBIOLOGY - GENERAL ORDERABLES Final Result Performing Organization Address [facility] [place] [address] * Protein / creatinine ratio, urine, random (07/29/2024 5:43 AM CDT) [facility] [address] Protein, ur, quant 8.4 mg/dL Comment: Interpretive Data No reference range established. Current interpretive data was last revised 2019. Creatinine Ur 82.2 mg/dL [facility] Comment: Interpretive Data No reference range established. Current interpretive data was last revised 2019. Protein/creatinin e ratio 102.2 0.0 - 180.0 mg/g CR [facility] Urine 07/29/2024 5:43 AM CDT 07/29/2024 9:30 AM CDT us Anastasia Amaro MD LAB URINE ORDERABLES Final Result [facility] Department [place] [address] * (ABNORMAL) Comprehensive metabolic panel (07/29/2024 5:43 AM CDT) [facility] [address] Sodium 140 135 - 145 mmol/L Potassium, pl 3.4 3.3 - 4.9 mmol/L [facility] Chloride 103 97 - 110 mmol/L [facility] CO2 22 22 - 32 mmol/L [facility] Anion gap 15 2 - 15 mmol/L [facility] BUN 5(L) 6 - 25 mg/dL [facility] Creatinine 0.51(L) 0.60 - 1.10 mg/dL [facility] Glucose 92 70 - 199 mg/dL [facility] Comment: Interpretive Data Fasting glucose >/= [...] Calcium 8.5 8.5 - 10.3 mg/dL [facility] Bilirubin, total 0.6 0.1 - 1.2 mg/dL [facility] Protein, pl 6.5 6.5 - 8.5 g/dL [facility] Albumin 3.7 3.5 - 5.0 g/dL [facility] Alk phos 74 40 - 130 Units/L [facility] ALT 20 7 - 45 Units/L [facility] AST 25 10 - 45 Units/L [facility] Blood 07/29/2024 5:43 AM CDT 07/29/2024 6:36 AM CDT Anastasia Amaro MD LAB BLOOD ORDERABLES Final Result Performing Organization Address City/[facility]/ZIP Co de Phone Number [facility] Department [place] [address] * Type and screen (07/29/2024 5:43 AM CDT) Pathologist [facility] Abiodun, indirect Negative ABO Rh O Negative [facility] Blood 07/29/2024 5:43 AM CDT 07/29/2024 6:37 AM CDT Narrative [facility] - 07/29/2024 7:26 AM CDT Has the patient had Daratumumab or Isatuximab in the past 6 months?->Unknown us Anastasia Amaro MD LAB BLOOD BANK TEST ORDERA BLES Final Result Performing Organization Address City/[facility] Co de Phone Number [facility] Department [place] [address] * (ABNORMAL) CBC without differential (07/29/2024 5:43 AM CDT) Pathologist [facility] WBC 9.6 3.8 - 9.9 K/cumm Hgb 11.2(L) 11.9 - 15.5 g/dL [facility] Hct 33.5(L) 35.6 - 45.5 % [facility] Plt 291 150 - 400 K/cumm [facility] MPV 10.4 9.1 - 12.3 fL [facility] RBC 3.83(L) 3.90 - 5.20 M/cumm [facility] MCV 87.5 81.3 - 96.4 fL [facility] MCH 29.2 27.1 - 33.3 pg [facility] MCHC 33.4 32.3 - 35.7 g/dL [facility] RDW CV 14.2 11.1 - 14.9 % [facility] RDW SD 45.5 35.7 - 48.1 fL [facility] NRBC abs 0.00 0.00 - 0.01 K/cumm [facility] Blood 07/29/2024 5:43 AM CDT 07/29/2024 6:35 AM CDT us Anastasia Amaro MD LAB BLOOD ORDERABLES Final Result [facility] Department [place] [address] documented in this encounter Visit Diagnoses Diagnosis [...] Thu08/30/24 at 1100 Given 09/19/2024 3:50 AM PHOTOGRAPH EDITOR 1,000 mg Given 09/18/2024 6:52 PM PHOTOGRAPH EDITOR 1,000 mg Given 09/18/2024 11:34 AM PHOTOGRAPH EDITOR 1,000 mg acetaminophen (TYLENOL) tablet 1,000 mg 1,000 mg, oral, Every 6 hours scheduled, First dose on Thu09/19/24 at 1800, For 24 hours, When able to tolerate PO. Max 4 doses. Anesthesia orders for the first 24 hours ., Indications: PainIndications:Pain Given 09/20/2024 12:56 PM PHOTOGRAPH EDITOR 1,000 mg Given 09/20/2024 7:18 AM PHOTOGRAPH EDITOR 1,000 mg Given 09/20/2024 12:28 AM PHOTOGRAPH EDITOR 1,000 mg acetaminophen (TYLENOL) tablet 1,000 mg 1,000 mg, oral, Every 6 hours PRN, 1st line for pain, Starting on Thu09/20/24 at 1800, Start in 24 hours after Anesthesia no longer covering., Indications: PainIndications:Pain Given 09/22/2024 8:33 AM PHOTOGRAPH EDITOR 1,000 mg Given 09/22/2024 12:53 AM PHOTOGRAPH EDITOR 1,000 mg Given 09/21/2024 6:08 PM PHOTOGRAPH EDITOR 1,000 mg acetaminophen (TYLENOL) tablet 650 mg 650 mg, oral, Every 4 hours PRN, 1st line for pain, Starting on Thu07/29/24 at 0317 Given 08/29/2024 4:40 PM PHOTOGRAPH EDITOR 650 m g Given 08/29/2024 9:37 AM PHOTOGRAPH EDITOR 650 mg Given 08/28/2024 6:29 PM PHOTOGRAPH EDITOR 650 mg aspirin chewable tablet 81 mg 81 mg, oral, Daily, First dose on Thu07/29/24 at 0900 Given 09/18/2024 9:08 AM PHOTOGRAPH EDITOR 81 mg Given 09/17/2024 9:24 AM PHOTOGRAPH EDITOR 81 mg Given 09/16/2024 9:41 AM PHOTOGRAPH EDITOR 81 mg betamethasone (CELESTONE) injection 12 mg 12 mg, intramuscular, Once, On Thu07/29/24 at 2330, For 1 dose Given 07/29/2024 11:04 PM CDT 12 mg Left Dorsogluteal/Buttoc k calcium carbonate (TUMS) chewable tablet 500 mg 500 mg, oral, 4 times daily PRN, heartburn, Starting on Thu09/19/24 at 1634, Indications: DyspepsiaIndications:Dyspepsia Given 09/20/2024 8:34 PM PHOTOGRAPH EDITOR 500 mg calcium gluconate 100 mg/mL (10%) [...] Impacted CerumenIndications:Impacted Cerumen Given 09/09/2024 10:41 AM PHOTOGRAPH EDITOR 10 drops Given 09/02/2024 1:56 PM PHOTOGRAPH EDITOR 10 drops Given 08/27/2024 11:03 AM PHOTOGRAPH EDITOR 10 drops cephalexin (KEFLEX) capsule 500 mg 500 mg, oral, Every 8 hours, First dose on Thu09/19/24 at 1645, For 48 hours, Indications: Prophylaxis, SurgicalIndications:Prophylaxis, Surgical Given 09/21/2024 8:31 AM PHOTOGRAPH EDITOR 50 0 mg Given 09/21/2024 1:12 AM PHOTOGRAPH EDITOR 500 mg Given 09/20/2024 5:17 PM PHOTOGRAPH EDITOR 500 mg cyclobenzaprine (FLEXERIL) tablet 5 mg 5 mg, oral, 2 times daily PRN, muscle spasms, Starting on Thu09/21/24 at 0847 Given 09/22/2024 8:33 AM PHOTOGRAPH EDITOR 5 mg Given 09/21/2024 9:55 PM PHOTOGRAPH EDITOR 5 mg Given 09/21/2024 9:05 AM PHOTOGRAPH EDITOR 5 mg dextrose 5% and Lactated Ringer's [...] Thu08/02/24 at 0018 Given 08/17/2024 9:30 AM PHOTOGRAPH EDITOR 25 mg Given 08/16/2024 9:16 PM PHOTOGRAPH EDITOR 25 mg Given 08/16/2024 1:19 PM PHOTOGRAPH EDITOR 25 mg diphenhydrAMINE (BENADRYL) tab/cap 25 mg 25 mg, oral, 2 times daily PRN, headache, 3rd line, ok to give with reglan if severe, Starting on Thu08/24/24 at 0856 Given 09/18/2024 12:52 PM PHOTOGRAPH EDITOR 25 mg Given 09/17/2024 9:24 AM PHOTOGRAPH EDITOR 25 mg Given 09/15/2024 9:36 AM PHOTOGRAPH EDITOR 25 mg doxylamine (UNISOM) tablet 25 mg 25 mg, oral, Nightly PRN, sleep, Starting on Thu09/06/24 at 1933 Given 09/18/2024 8:20 PM PHOTOGRAPH EDITOR 25 mg Given 09/17/2024 9:02 PM PHOTOGRAPH EDITOR 25 mg Given 09/16/2024 9:02 PM PHOTOGRAPH EDITOR 25 mg enoxaparin (LOVENOX) syringe 40 mg 40 mg, subcutaneous, Every 12 hours scheduled, First dose on Thu08/16/24 at 0900, Indications: Deep Vein Thrombosis Prevention, On hold since Thu09/19/2024 at 0844 until manually unheldIndications:Deep Vein Thrombosis Prevention Given 09/18/2024 9:11 AM PHOTOGRAPH EDITOR 40 mg Left Lower Abdomen Given 09/17/2024 9:03 PM PHOTOGRAPH EDITOR 40 mg Ri ght Upper Arm Given 09/17/2024 9:24 AM PHOTOGRAPH EDITOR 40 mg Ri ght Upper Arm enoxaparin (LOVENOX) syringe 40 mg 40 mg, subcutaneous, Every 12 hours scheduled, First dose on Thu09/20/24 at 2100, Indications: Deep Vein Thrombosis PreventionIndications:Deep Vein Thrombosis Prevention Given 09/22/2024 8:35 AM PHOTOGRAPH EDITOR 40 mg Left Upper Arm Given 09/21/2024 9:55 PM PHOTOGRAPH EDITOR 40 mg Ri ght Upper Arm Given 09/21/2024 8:31 AM PHOTOGRAPH EDITOR 40 mg Ri ght Upper Arm etonogestreL (NEXPLANON) implant 68 mg 68 mg, subdermal, Once, On Thu09/20/24 at 0715, For 1 dose, Indications: ContraceptionIndications:Pregn harman Contraception Given 09/20/2024 3:45 PM PHOTOGRAPH EDITOR 68 mg Left Upper Arm (Back ) ferrous sulfate tablet 325 mg 325 mg (65 mg of elemental iron), oral, Daily with breakfast, First dose on Thu09/20/24 at 0800, Indications: Iron Deficiency AnemiaIndications:Iron Deficiency Anemia Given 09/22/2024 8:33 AM PHOTOGRAPH EDITOR 325 mg Given 09/21/2024 8:31 AM PHOTOGRAPH EDITOR 325 mg Given 09/20/2024 8:50 AM PHOTOGRAPH EDITOR 325 mg fluticasone propionate (FLONASE) 50 mcg/actuation nasal spray 1 spray 1 spray, each nostril, Daily, First dose on Thu08/19/24 at 1615 Given 09/22/2024 8:33 AM PHOTOGRAPH EDITOR 1 spray Given 09/20/2024 5:19 PM PHOTOGRAPH EDITOR 1 spray Given 09/17/2024 10:16 AM PHOTOGRAPH EDITOR 1 spray guaiFENesin ER (MUCINEX) extended release tablet 600 mg 600 mg, oral, 2 times daily PRN, congestion, Starting on Thu08/19/24 at 0916, Do not crush, chew, cut, dissolve, open or otherwise manipulate tablet/capsule. Given 09/14/2024 12:45 PM PHOTOGRAPH EDITOR 600 mg Given 09/11/2024 11:05 AM PHOTOGRAPH EDITOR 600 mg Given 09/10/2024 12:11 PM PHOTOGRAPH EDITOR 600 mg hydrOXYzine (ATARAX) tablet 25 mg 25 mg, oral, 4 times daily PRN, anxiety, Starting on Thu08/17/24 at 1316 Given 08/17/2024 1:49 PM PHOTOGRAPH EDITOR 25 mg ioversoL (OPTIRAY 350) syringe 100 mL 100 mL, intravenous, Once in imaging, contrast, Starting on Thu08/05/24 at 0050, For 1 dose Contrast Given 08/05/2024 12:52 AM CDT 93 mL labetaloL (NORMODYNE,TRANDATE) tablet 200 mg 200 mg, oral, 3 times daily, First dose on Thu09/06/24 at 1600, L&D Pre-Delivery Given 09/08/2024 5:05 PM PHOTOGRAPH EDITOR 200 mg Given 09/08/2024 8:49 AM PHOTOGRAPH EDITOR 200 mg Given 09/07/2024 9:55 PM PHOTOGRAPH EDITOR 200 mg labetaloL (NORMODYNE,TRANDATE) tablet 200 mg 200 mg, oral, 3 times daily, First dose (after last modification) on Thu09/09/24 at 0000, L&D Pre-Delivery Given 09/13/2024 8:26 PM PHOTOGRAPH EDITOR 200 mg Given 09/13/2024 3:51 PM PHOTOGRAPH EDITOR 200 mg Given 09/13/2024 9:14 AM PHOTOGRAPH EDITOR 200 mg labetaloL (NORMODYNE,TRANDATE) tablet 300 mg 300 mg, oral, 3 times daily, First dose (after last modification) on Thu09/14/24 at 0900, L&D Pre-Delivery Given 09/19/2024 8:53 AM PHOTOGRAPH EDITOR 300 mg Given 09/18/2024 8:16 PM PHOTOGRAPH EDITOR 300 mg Given 09/18/2024 4:17 PM PHOTOGRAPH EDITOR 300 mg labetaloL (NORMODYNE,TRANDATE) tablet 300 mg 300 mg, oral, 3 times daily, First dose on Thu09/19/24 at 1400 Given 09/22/2024 8:35 AM PHOTOGRAPH EDITOR 300 mg Given 09/21/2024 9:55 PM PHOTOGRAPH EDITOR 300 mg Given 09/21/2024 4:15 PM PHOTOGRAPH EDITOR 300 mg lidocaine (LIDODERM) 5 % patch 2 patch 2 patch, transdermal, Administer over 12 Hours, Every 24 hours, First dose on Thu09/21/24 at 0930, Do not cover the holes on the top side of the patch., Apply to affected area: abdomen Medication Applied 09/22/2024 8:33 AM PHOTOGRAPH EDITOR 2 patches Other (Comment) Medication Applied 09/21/2024 9:06 AM PHOTOGRAPH EDITOR 2 patches Other (Comment) lidocaine (PF) (XYLOCAINE) 10 mg/mL (1 %) preservative free injection 50 mg 50 mg (5 mL), subcutaneous, Once, On Thu09/20/24 at 0715, For 1 dose Given 09/20/2024 3:45 PM PHOTOGRAPH EDITOR 50 mg Left Upper Arm magnesium sulfate [...] Pre-EclampsiaIndications:Pre -Eclampsia New Bag 09/20/2024 8:49 AM PHOTOGRAPH EDITOR 2 g/hr 50 mL/hr Rate/Dose Verify 09/20/2024 6:25 AM PHOTOGRAPH EDITOR 2 g/hr 50 mL/h r Rate/Dose Verify 09/20/2024 4:25 AM PHOTOGRAPH EDITOR 2 g/hr 50 mL/h r magnesium sulfate bolus from bag 6 g 6 g, intravenous, Administer over 30 Minutes, Once, On Thu09/19/24 at 1345, For 1 dose, Indications: Pre-EclampsiaIndications:Pre-Eclampsi a Bolus from Bag 09/19/2024 1:33 PM PHOTOGRAPH EDITOR 6 g metoclopramide (REGLAN) tablet 10 mg [...] 1915, Indications: HeadacheIndications:Headache Given 08/17/2024 9:30 AM PHOTOGRAPH EDITOR 10 mg Given 08/16/2024 9:16 PM PHOTOGRAPH EDITOR 10 mg Given 08/16/2024 1:19 PM PHOTOGRAPH EDITOR 10 mg metoclopramide (REGLAN) tablet 10 mg 10 mg, oral, Every 6 hours PRN, other, HARRY 2nd line, Starting on Thu08/24/24 at 0856, Indications: HeadacheIndications:Headache Given 09/18/2024 9:53 PM PHOTOGRAPH EDITOR 10 mg Given 09/17/2024 9:24 AM PHOTOGRAPH EDITOR 10 mg Given 09/16/2024 11:35 AM PHOTOGRAPH EDITOR 10 mg metroNIDAZOLE (FLAGYL) tablet 500 mg 500 mg, oral, Every 8 hours, First dose on Thu09/19/24 at 1645, Indications: Prophylaxis, SurgicalIndications:Prophylaxis, Surgical Given 09/22/2024 8:34 AM PHOTOGRAPH EDITOR 500 mg Given 09/22/2024 12:53 AM PHOTOGRAPH EDITOR 500 mg Given 09/21/2024 4:15 PM PHOTOGRAPH EDITOR 500 mg NIFEdipine (PROCARDIA XL/ADALAT CC) extended release tablet 120 mg 120 mg, oral, Daily, First dose on Thu09/03/24 at 0900, Do not crush, chew, cut, dissolve, open or otherwise manipulate tablet/capsule. Given 09/22/2024 8:35 AM PHOTOGRAPH EDITOR 120 mg Given 09/21/2024 8:32 AM PHOTOGRAPH EDITOR 120 mg Given 09/20/2024 8:50 AM PHOTOGRAPH EDITOR 120 mg NIFEdipine (PROCARDIA XL/ADALAT CC) extended [...] otherwise manipulate tablet/capsule. Given 09/02/2024 11:08 AM PHOTOGRAPH EDITOR 30 mg NIFEdipine (PROCARDIA XL/ADALAT CC) extended [...] otherwise manipulate tablet/capsule. Given 09/02/2024 8:39 AM PHOTOGRAPH EDITOR 90 mg Given 09/01/2024 10:06 AM PHOTOGRAPH EDITOR 90 mg Given 08/31/2024 9:15 AM PHOTOGRAPH EDITOR 90 mg ondansetron (ZOFRAN) injection 4 mg [...] ., Indications: PainIndications:Pain Given 09/20/2024 12:56 PM PHOTOGRAPH EDITOR 5 mg Given 09/20/2024 4:25 AM PHOTOGRAPH EDITOR 5 mg Given 09/19/2024 9:35 PM PHOTOGRAPH EDITOR 5 mg oxyCODONE (ROXICODONE) tablet 5 mg 5 mg, oral, Every 4 hours PRN, breakthrough pain, Starting on Thu09/20/24 at 1634, May administer 1 hour after 1st line agent for uncontrolled or increasing pain. Start in 24 hours after Anesthesia no longer covering., Indications: PainIndications:Pain Given 09/22/2024 9:58 AM PHOTOGRAPH EDITOR 5 mg Given 09/22/2024 6:12 AM PHOTOGRAPH EDITOR 5 mg Given 09/22/2024 12:53 AM PHOTOGRAPH EDITOR 5 mg PNV with ukutnuk-agkn-YS tablet 1 tablet 1 tablet (1 tablet/capsule), oral, Daily, First dose on Thu07/29/24 at 0900 Given 09/18/2024 9:08 AM PHOTOGRAPH EDITOR 1 tablet Given 09/17/2024 9:24 AM PHOTOGRAPH EDITOR 1 tablet Given 09/16/2024 9:41 AM PHOTOGRAPH EDITOR 1 tablet PNV with rljsojm-etxf-TH tablet 1 tablet 1 tablet, oral, Daily, First dose on Thu09/19/24 at 1715, Begin when normal bowel activity resumes., Indications: Vitamin Deficiency PreventionIndications:Vitamin Deficiency Prevention Given 09/22/2024 8:33 AM PHOTOGRAPH EDITOR 1 tablet Given 09/21/2024 8:31 AM PHOTOGRAPH EDITOR 1 tablet Given 09/20/2024 8:50 AM PHOTOGRAPH EDITOR 1 tablet polyethylene glycol (MIRALAX) packet 17 g 17 g, oral, 2 times daily PRN, constipation, Starting on Thu07/31/24 at 0030, 1st line Given 08/30/2024 9:06 PM PHOTOGRAPH EDITOR 1 7 g Given 08/25/2024 8:35 PM PHOTOGRAPH EDITOR 17 g Given 08/14/2024 10:46 AM PHOTOGRAPH EDITOR 17 g polyethylene glycol (MIRALAX) packet 17 g 17 g, oral, 2 times daily, First dose (after last modification) on Thu08/30/24 at 2145, 1st line Given 09/18/2024 5:21 PM PHOTOGRAPH EDITOR 17 g Given 09/17/2024 9:24 AM PHOTOGRAPH EDITOR 17 g Given 09/16/2024 9:41 AM PHOTOGRAPH EDITOR 17 g potassium chloride ER (KLOR-CON) extended [...] For 349 days Given 09/19/2024 8:53 AM PHOTOGRAPH EDITOR 200 mg Given 09/18/2024 9:09 AM PHOTOGRAPH EDITOR 200 mg Given 09/17/2024 9:24 AM PHOTOGRAPH EDITOR 200 mg Rho(D) immune globulin (HyperRHO S/D, [...] Rhesus Isoimmunization affecting Given 09/20/2024 12:54 PM PHOTOGRAPH EDITOR 300 mcg Left Deltoid senna (SENOKOT) tablet 1 tablet 1 tablet, oral, 2 times daily PRN, constipation, Starting on Thu07/31/24 at 0030, 2nd line Given 07/31/2024 9:42 AM CDT 1 tablet senna-docusate (PERICOLACE) 8.6-50 mg per tablet 1 tablet 1 tablet, oral, Nightly, First dose on Thu08/30/24 at 2145 Given 09/18/2024 8:16 PM PHOTOGRAPH EDITOR 1 tablet Given 09/17/2024 9:02 PM PHOTOGRAPH EDITOR 1 tablet Given 09/16/2024 9:02 PM PHOTOGRAPH EDITOR 1 tablet senna-docusate (PERICOLACE) 8.6-50 mg per tablet 1 tablet 1 tablet, oral, 2 times daily, First dose on Thu09/19/24 at 2100, Hold if diarrhea., Indications: constipationIndications:constipation Given 09/21/2024 8:31 AM PHOTOGRAPH EDITOR 1 table t Given 09/20/2024 8:33 PM PHOTOGRAPH EDITOR 1 tablet Given 09/20/2024 8:50 AM PHOTOGRAPH EDITOR 1 tablet simethicone (MYLICON) chewable tablet 160 mg 160 mg, oral, 4 times daily PRN (after meals, bedtime), flatulence, Starting on Thu09/20/24 at 2025 Given 09/20/2024 9:38 PM PHOTOGRAPH EDITOR 160 mg sodium chloride (OCEAN) 0.65 % nasal spray 1 spray 1 spray, each nostril, Every 1 hour PRN, congestion, rhinitis, Starting on Thu08/17/24 at 0929 Given 09/04/2024 5:37 PM PHOTOGRAPH EDITOR 1 spray Given 08/30/2024 12:41 PM PHOTOGRAPH EDITOR 1 spray Given 08/27/2024 6:31 PM PHOTOGRAPH EDITOR 1 spray sodium chloride 0.9% flush 0.5-20 mL 0.5-20 mL, intra-catheter, Every 8 hours scheduled, First dose on Thu07/29/24 at 0600, L&D Pre-Delivery, Flush volume based on line type and size. Given 09/18/2024 8:16 PM PHOTOGRAPH EDITOR 10 mL Given 09/17/2024 9:50 PM PHOTOGRAPH EDITOR 10 mL Given 09/17/2024 6:47 PM PHOTOGRAPH EDITOR 10 mL sodium chloride 0.9% flush 0.5-20 mL 0.5-20 mL, intra-catheter, As needed, line care, Starting on Thu07/29/24 at 0302, L&D Pre-Delivery, Flush volume based on line type and size. Flush before and after each use. Given 09/14/2024 9:26 AM PHOTOGRAPH EDITOR 1 0 mL Given 09/13/2024 9:15 AM PHOTOGRAPH EDITOR 10 mL Given 09/12/2024 9:04 AM PHOTOGRAPH EDITOR 10 mL sodium chloride 0.9% flush 0.5-20 mL 0.5-20 mL, intra-catheter, Every 8 hours scheduled (alternate), First dose on Thu09/19/24 at 1715, Flush volume based on line type and size. Given 09/21/2024 8:34 AM PHOTOGRAPH EDITOR 10 mL Given 09/20/2024 11:46 PM PHOTOGRAPH EDITOR 10 mL Given 09/20/2024 4:00 PM PHOTOGRAPH EDITOR 5 mL sodium chloride 0.9% infusion 50 mL/hr, intravenous, Continuous, Starting on Thu09/19/24 at 1845 Rate/Dose Verify 09/20/2024 6:25 AM PHOTOGRAPH EDITOR 50 mL/hr 50 mL/hr New Bag 09/19/2024 6:54 PM PHOTOGRAPH EDITOR 50 mL/hr 50 mL/hr documented in this [...] Recently Administered Medications Times are shown in PHOTOGRAPH EDITOR. Scheduled Medication Order 09/20/2024 09/21/2024 09/22/2024 acetaminophen [...] - Provider: Nancy Crooks, KRYSTEN) PNV with emszdfj-btcp-TI tablet 1 tablet 1 tablet, oral, Daily, [...] Nancy Crooks, KRYSTEN)2154 (Not Given - Provider: Soumya Teixeira, KRYSTEN - Reason: Patient/family refused) 0833 [...] Soumya Teixeira, KRYSTEN) 0605 (Given - Provider: Somuya Teixeira RN)1212 (Given - Provider: Nancy Crooks [...] RN - Reason: Order parameters not met) xxdacas-gpcnr-kyrhlex (MMR) 1,000-12,500 TCID50/0.5 mL live vaccine 0.5 mL 0.5 mL, subcutaneous, During hospitalization, immunization, Starting on Thu09/19/24 at 1634, For 1 dose, If not rubella immune. Warning: This is a live or live attenuated vaccine. Refrigerate. Two-component vaccine. Must be reconstituted with diluent provided. Document the NDC, Lot number, expiration date from the DRY POWDER vial component at administration., Indications: Gxrppau-Lawqg-Ufubdri Vaccination ondansetron (ZOFRAN) injection 4 mg(Linked Group [...] 09/19/2024 ibuprofen (ADVIL,MOTRIN) tablet 600 mg 1 grlsoon-wuqfo-ycduofa (MMR) 1,000-12,500 TCID50/0.5 mL live vaccine 0.5 [...] 07/29/2024 documented in this encounter Care Teams [employer] F[employer] Relationship Specialty Start Date End Date No, Physician PCP - General 02/25/24 documented as of this encounter
--- OUTSIDE RECORDS SUMMARY | 2024-10-10 01:46 | XMS_ITS | Encounter Summary ---
Author Organization [facility] Healthcare Address [address] [place] [address] Care Team Providers Care Funeral Pre Arrangement Specialist Name Role Phone No, Physician Primary Care Provider [phone] Reason for Visit * Auth/Cert (Routine) Specialty Diagnoses / Procedures Referred By Contac t Referred To Contact Diagnoses Preeclampsia, unspecified trimester Hypertension Procedures N/A Referral ID Status Reason Start Date Expiration Date Visits Re quested Visits Authorized [id number] 1 1 Encounter Details Date Type Department Care Team (Late st Contact Info) Description 09/19/2024 1:57 PM LENS DOTTER Anesthesia Event [address] [address] Sidra Ann MD [address] [place] [address] Rei Strange MD [address] [place] [address] Anesthesia Record Procedure Summary Procedure Name Responsible [...] Tobacco: Never Smokeless Tobacco: Never [facility] Utilities Answer Date Recorded In the [...] often do you attend chur ch or jainism services? Never 07/29/2024 Do you belong to [...] things needed for daily living? No 07/29/2024 [place] Depression Scale Answer Date Recorded [place] Depression Scale Total 8 07/12/2024 The thought [...] [facility] in the [facility], were you homeless or living in [...] on file Legal Sex Female 2:19 AM LENS DOTTER Gender Identity Not on file Sexual Orientation Not on file documented as of this encounter OR Notes * Anesthesia Postprocedure Evaluation - Rei Strange MD - 09/22/2024 7:28 AM CST Patient: Suki Leon Procedure Summary Date: 09/19/24 Room / Location: [facility] ROOM 1 / [facility] L&D OR Anesthesia Start: 1357 Anesthesia Stop: [...] Servando Felipe MD at 09/22/2024 8:43 AM LENS DOTTER DOTTER DOTTER * Anesthesia Procedure Notes - Abena Denton [...] patient tolerated procedure well with no complications DOTTER * Anesthesia Preprocedure Evaluation - Sidra Ann [...] 04/15/2024 Anxiety disorder 04/15/2024 BMI 40.0-44.9, adult ([facility]) 04/15/2024 Twin , unable to determine number [...] 120 mg at 09/19/24 0853 PNV with [id number] tablet 1 tablet, 1 tablet/capsule, oral, Daily, [...] Conv) Cancer Neg Hx no colon or hvac tech cmt 04/15/24 Vitals: 09/19/24 0857 09/19/24 0920 [...] Medication protocol when under care of a BOX STORAGE WORKER Planned anesthesia: CSE Postoperative Plan: Postoperative administration [...] and agree to proceed. All questions answered. DOTTER DOTTER documented in this encounter Plan of Treatment Not on file documented as of this encounter Procedures Procedure Name Priority Date/Time Associated Diagnosis Comments ANESTHESIA EPIDURAL BLOCK Routine 09/19/2024 2:45 PM LENS DOTTER documented in this encounter Results * Epidural Block (09/19/2024 2:45 PM LENS DOTTER) Narrative Abena Denton MD - 09/19/2024 2:45 PM LENS DOTTER Abena Denton MD ? 09/19/2024 ??2:50 PM [...] Spinal AnesthesiaIndications:Spinal Anesthesia Given 09/19/2024 2:20 PM LENS DOTTER 1.8 mL ceFAZolin (ANCEF) injection intravenous, Administer over 3 Minutes, As needed, Starting on Thu09/19/24 at 1428, Anesthesia Intra-op Given 09/19/2024 2:28 PM LENS DOTTER 3,000 mg famotidine (PEPCID) injection intravenous, Administer over 2 Minutes, As needed, Starting on Thu09/19/24 at 1428, Anesthesia Intra-op Given 09/19/2024 2:28 PM LENS DOTTER 20 mg fentaNYL (SUBLIMAZE) preservative free injection intrathecal, As needed, Starting on Thu09/19/24 at 1421, Anesthesia Intra-op Given 09/19/2024 2:21 PM LENS DOTTER 15 mcg ketorolac (TORADOL) 30 mg/mL injection intravenous, As needed, Starting on Thu09/19/24 at 1530, Anesthesia Intra-op Given 09/19/2024 3:30 PM LENS DOTTER 30 mg Lactated Ringer's (LR) infusion intravenous, Continuous PRN, Starting on Thu09/19/24 at 1358, Anesthesia Intra-op New Bag 09/19/2024 1:58 PM LENS DOTTER magnesium sulfate 20 g/500 mL in water infusion (premix) 2 g/hr (50 mL/hr), intravenous, Continuous, Starting on Thu09/19/24 at 1345, Suspected magnesium toxicity - Stop if maternal respiratory rate less than 12 breaths/minute, apply oximeter and administer O2 at 8-12 LPM per tight face mask to maintain SaO2 95% or more and notify MD., Indications: Pre-EclampsiaIndications:Pre- Eclampsia New Bag 09/20/2024 8:49 AM LENS DOTTER 2 g/hr 50 mL/hr Rate/Dose Verify 09/20/2024 6:25 AM LENS DOTTER 2 g/hr 50 mL/h r Rate/Dose Verify 09/20/2024 4:25 AM LENS DOTTER 2 g/hr 50 mL/h r metoclopramide (REGLAN) 5 mg/mL injection intravenous, Administer over 1 Minutes, As needed, Starting on Thu09/19/24 at 1432, Anesthesia Intra-op Given 09/19/2024 2:32 PM LENS DOTTER 10 mg morphine preservative free injection intrathecal, Administer over 4 Minutes, As needed, Starting on Thu09/19/24 at 1421, Anesthesia Intra-op Given 09/19/2024 2:21 PM LENS DOTTER 0.1 mg ondansetron (ZOFRAN) injection intravenous, Administer over 2 Minutes, As needed, Starting on Thu09/19/24 at 1428, Anesthesia Intra-op Given 09/19/2024 2:28 PM LENS DOTTER 4 mg oxytocin (PITOCIN) 30 Units in Lactated Ringer's (LR) 500 mL (0.06 Units/mL) infusion intravenous, Continuous PRN, Starting on Thu09/19/24 at 1508, Anesthesia Intra-op Rate/Dose Change 09/19/2024 3:30 PM LENS DOTTER 6 Units/hr 100 mL/hr Rate/Dose Change 09/19/2024 3:15 PM LENS DOTTER 12 Units/hr 200 mL /hr New Bag 09/19/2024 3:08 PM LENS DOTTER 59.94 Units/hr 999 mL/hr oxytocin (PITOCIN) injection intravenous, As needed, Starting on Thu09/19/24 at 1509, Anesthesia Intra-op Given 09/19/2024 3:16 PM LENS DOTTER 3 Unit s Given 09/19/2024 3:09 PM LENS DOTTER 3 Units phenylephrine (DAVIAN-SYNEPHRINE) 5 mg/50 mL (100 mcg/mL) in sodium chloride 0.9% (premix) intravenous, Continuous PRN, Starting on 09/19/24 at 1422, Anesthesia Intra-op Rate/Dose Change 09/19/2024 3:31 PM LENS DOTTER 0.2 mcg/kg/min 15.456 mL/hr Rate/Dose Change 09/19/2024 3:20 PM LENS DOTTER 0.4 mcg/kg/min 30. 912 mL/hr Rate/Dose Change 09/19/2024 2:43 PM LENS DOTTER 0.5 mcg/kg/min 38. 64 mL/hr documented in this encounter Care Teams Funeral Pre Arrangement Specialist Relationship Specialty Start Date End Date No, Physician PCP - General 02/25/24 documented as of this encounter
--- OUTSIDE RECORDS SUMMARY | 2024-10-10 01:47 | XMS_ITS | Encounter Summary ---
Author Organization [facility] Healthcare Address [address] [place] [address] Care Team Providers Care Energy Infrastructure Engineer Name Role Phone No, Physician Primary Care Provider [phone] Encounter Details Date Type Department Care Team (Late st Contact Info) Description 08/05/2024 Telephone [email or web address] 4 [facility] [address] [place] [address] Dia Mantilla MD [address] [place] [address] [address] [place] [address] Social History Tobacco Use Types Packs/Day Years Used Date Smoking Tobacco: Never Smokeless Tobacco: Never [facility] Utilities Answer Date Recorded In the past 12 months has [facility] electric, gas, oil, or water [employer] threatened to shut off services in your [...] often do you attend chur ch or christian services? Never 07/29/2024 Do you belong to [...] staff should administer the PHQ-9) 0 07/28/2024 [facility] - Occupational [...] things needed for daily living? No 07/29/2024 [place] Depression Scale Answer Date Recorded [place] Depression Scale Total 8 07/12/2024 The thought [...] any time in the past 12 m [facility], were you homeless or [...] on file Legal Sex Female 2:19 AM CREDIT CARD INTERVIEWER Gender Identity Not on file Sexual Orientation Not on file documented as of this encounter Miscellaneous Notes * Telephone Encounter - Beata Joy RN - 08/05/2024 2:19 PM CDT [phone] Patient's spouse called and wants to talk with Dr. Mantilla regarding patients recent admission to [facility] for Pre- Eclampsia. Spouse was concerned with the fact that he felt they weren't truly informed with everything that is going on with her and the babies once they were admitted. His understanding was that she was going to [facility] for an evaluation and then she would [...] their care in our office and at [facility], it has just been since her admission to [facility]. GITA Noel, RN documented in this encounter Plan of Treatment Not on file documented as of this encounter Visit Diagnoses Not on filedocumented in this encounter Care Teams Energy Infrastructure Engineer Relationship Specialty Start Date End Date No, Physician PCP - General 02/25/24 documented as of this encounter
--- OUTSIDE RECORDS SUMMARY | 2024-10-10 01:47 | XMS_ITS | Encounter Summary ---
Author Organization [facility] Healthcare Address [address] [place] [address] Care Team Providers Care Section Weaver Name Role Phone No, Physician Primary Care Provider [phone] Encounter Details Date Type Department Care Team (Late st Contact Info) Description 07/27/2024 [facility] Only [facility] [address] [place] [phone] [place] Twin , unable to determine [...] How often do you attend chur or druze services? Never 07/28/2024 Do you belong to [...] PHQ-9) 0 07/28/2024 [facility] - Occupational Stress Questionnaire Answer Date [...] things needed for daily living? No 07/28/2024 [place] Depression Scale Answer Date Recorded [place] Depression Scale Total 8 07/12/2024 The thought [...] any time in the past 12 m [facility], were you homeless or living in a alf (including now)? No 07/28/2024 Personal Safety Answer Date Recorded Getting School Help Needed Not on file 02/24 Comments Yes Sex and Gender Information Value Date Recorded Sex Assigned at Not on file Legal Sex Female 2:19 AM SET UP MACHINIST Gender Identity Not on file Sexual Orientation [...] type documented in this encounter Care Teams Section Weaver Relationship Specialty Start Date End Date No, Physician PCP - General 02/25/24 documented as of this encounter
--- OUTSIDE RECORDS SUMMARY | 2024-10-10 01:47 | XMS_ITS | Encounter Summary ---
Author Organization [facility] Healthcare Address [address] [place] [address] Care Team Providers Care Aircraft Inspector Name Role Phone No, Physician Primary Care Provider [phone] Reason for Referral * Diagnostic Imaging (Routine) - Closed Specialty Diagnoses / Procedures Referred By Contac t Referred To Contact Diagnoses BMI 40.0-44.9, adult (HCC) Irritable bowel syndrome, unspecified type Monochorionic diamniotic twin , antepartum Long-term current use of antidepressant Anxiety disorder, unspecified type Procedures US OB Detail Anatomy with US Transvaginal (C) Dia Mantilla MD [address] [place] [address] DR BAUTISTA [address] [place] [address] Phone: tel: [facility] [address] [place] [address] Referral ID Status Reason Start Date Expiration Date Visits Re quested Visits Authorized [id number] Closed 05/18/2024 06/17/2025 1 1 Reason for Visit * Diagnostic Imaging (Routine) - Closed Specialty Diagnoses / Procedures Referred By Contac t Referred To Contact Diagnoses BMI 40.0-44.9, adult (HCC) Irritable bowel syndrome, unspecified type Monochorionic diamniotic twin , antepartum Long-term current use of antidepressant Anxiety disorder, unspecified type Procedures US OB Detail Anatomy with US Transvaginal (C) Dia Mantilla MD [address] [place] [address] DR BAUTISTA [address] [place] [address] Phone: tel: [facility] [address] [place] [address] Referral ID Status Reason Start Date Expiration Date Visits Re quested Visits Authorized [id number] Closed 05/18/2024 06/17/2025 1 1 Encounter Details Date Type Department Care Team (Latest Contact Info) Description 06/15/2024 11:11 AM CDT - 06/15/2024 11:59 PM CDT Hospital Encounter [facility] Maternal Medicine Ultrasound-[facility] [address] [place] [phone] BMI 40.0-44.9, adult (HCC); Irritable bowel syndrome, [...] staff should administer the PHQ-9) 0 05/18/2024 [place] Depression Scale Answer Date Recorded [place] Depression Scale Total 10 05/20/2024 The thought of harming myself has occurred to me . 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 HIGH SCHOOL COUNSELOR Gender Identity Not on file Sexual Orientation [...] type documented in this encounter Care Teams Aircraft Inspector Relationship Specialty Start Date End Date No, Physician PCP - General 02/25/24 documented as of this encounter
--- OUTSIDE RECORDS SUMMARY | 2024-10-10 01:47 | XMS_ITS | Encounter Summary ---
Author Organization [facility] Healthcare Address [address] [place] [address] Care Team Providers Care Sales Representative Sales Manager Name Role Phone No, Physician Primary Care Provider [phone] Reason for Visit * Auth/Cert (Routine) Specialty Diagnoses / Procedures Referred By Contac t Referred To Contact Diagnoses Preeclampsia, unspecified trimester Hypertension Procedures N/A Referral ID Status Reason Start Date Expiration Date Visits Re quested Visits Authorized [id number] 1 1 Encounter Details Date Type Department Care Team (Late st Contact Info) Description 08/02/2024 9:15 AM CDT Ancillary Procedure [address] [place] [address] Social History Tobacco Use Types Packs/Day Years Used Date Smoking Tobacco: Never Smokeless Tobacco: Never [facility] Utilities Answer Date Recorded In the past 12 months has [facility] electric, gas, oil, or water company threatened [...] often do you attend chur ch or confucianist services? Never 07/29/2024 Do you belong to any clubs o r organizations such as rastafari groups, unions, fraternal or athletic groups, or [...] should administer the PHQ-9) 0 07/28/2024 [facility] Stress Questionnaire Answer Date Recorded [...] things needed for daily living? No 07/29/2024 [place] Depression Scale Answer Date Recorded [place] Depression Scale Total 8 07/12/2024 The thought [...] any time in the past 12 m [facility], were you homeless or living in a prison (including now)? No 07/29/2024 Personal Safety Answer Date Recorded Have you ever been in or are you currently in a harmful physical or emotional relationship or is someone making you feel afraid or unsafe? Denies 07/29/2024 Comments Yes Sex and Gender Information Value Date Recorded Sex Assigned at Not on file Legal Sex Female 2:19 AM ASSEMBLY SUPERVISOR Gender Identity Not on file Sexual [...] previously determined to be monochorionic by the [facility] practice. Anatomic surveys were also [...] was previously determined to bemonochorionic by the [facility] practice. Anatomic surveys were alsocompleted [...] on filedocumented in this encounter Care Teams Sales Representative Sales Manager Relationship Specialty Start Date End Date No, Physician PCP - General 02/25/24 documented as of this encounter
--- OUTSIDE RECORDS SUMMARY | 2024-10-10 01:47 | XMS_ITS | Encounter Summary ---
Author Organization [facility] Address [address] [place] [address] Phone Care Team Providers Care Applied Anthropologist Name Role Phone No, Physician Primary Care Provider [phone] Encounter Details Date Type Department Care Team (Latest Contact Info) Description 08/03/2024 11:34 AM CDT - 08/03/2024 11:59 PM CDT Hospital Encounter [facility] Pediatric Cardiology [facility] 2nd Floor [address] [place] [address] Discharge Disposition: Discharge to home or self care Social History Tobacco Use Types Packs/Day Years Used Date Smoking Tobacco: Never Smokeless Tobacco: Never [facility] Utilities Answer Date Recorded In the past 12 months has [facility] electric, gas, oil, or water [employer] threatened to shut off services in your [...] How often do you attend chur or rastafari services? Never 07/29/2024 Do you belong to any clubs o r organizations such as sabianism groups, unions, fraternal or athletic groups, or [...] things needed for daily living? No 07/29/2024 [place] Depression Scale Answer Date Recorded [place] Depression Scale Total 8 07/12/2024 The thought [...] any time in the past 12 m [facility], were you homeless or living [...] on file Legal Sex Female 2:19 AM SILK FINISHER Gender Identity Not on file Sexual Orientation [...] PM CDT Narrative 08/03/2024 5:10 PM CDT ?[facility] ? Echo Report ?[address] ??[address] ?[phone] ? Patient Name: SUKI BEE ? Study Type: Echo ? Patient : 1995 ? Exam Date: ??08/03/2024 ? Age: ?29Y ? Exam Time: ??1:22:00 PM ? Referring MD: SIM HUSAIN ? Height: ? 65in ? Weight: ? 284lb ? BSA: ?2.3 m2 ? Sex: FEMALE ? BP: ? 139/83 ? Creative Writer: May Quick ? Pat. Stat.: Inpatient ?Room: 6800 ? Account:[id number] ? Indications for Study:MONO-DI TWINS Procedures: COLORFLOW, [...] Normal. Septum: PFO. Defect sz. Moderate ??Shunt: Xvjbg-hn-Qhoc ?? Annular Dimensions: ??Ao Valve: 0.52 cm [...] Procedure Note Macie Vickers MD - 08/03/2024 [facility] Echo Report [address] [address] Patient Name: SUKI BEE Study Type: Echo Patient : 1995 Exam Date: 08/03/2024 Age: 29Y Exam Time: 1:22:00 PM Referring MD: SIM HUSAIN Height: 65in Weight: 284lb BSA: 2.3 m2 Sex: FEMALE BP: 139/83 Creative Writer: May Quick Pat. Stat.: Inpatient Room: [facility] Account:[id number] Indications for Study:MONO-DI TWINS Procedures: COLORFLOW, DOPPLER [...] Normal. Septum: PFO. Defect sz. Moderate Shunt: Uearp-zj-Eabe Annular Dimensions: Ao Valve: 0.52 cm (+0.79) [...] on filedocumented in this encounter Care Teams Applied Anthropologist Relationship Specialty Start Date End Date No, Physician PCP - General 02/25/24 documented as of this encounter
--- OUTSIDE RECORDS SUMMARY | 2024-10-10 01:47 | XMS_ITS | Encounter Summary ---
Author Organization [facility] Healthcare Address [address] [place] [address] Care Team Providers Care Power Shovel Mechanic Name Role Phone No, Physician Primary Care Provider [phone] Encounter Details Date Type Department Care Team (Late st Contact Info) Description 06/18/2024 9:15 AM CDT [address] [address] Encounter for supervision of normal first in [...] staff should administer the PHQ-9) 0 05/18/2024 [place] Depression Scale Answer Date Recorded [place] Depression Scale Total 10 05/20/2024 The thought of harming myself has occurred to me . 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 FILTER FILLER Gender Identity Not on file Sexual Orientation [...] 06/18/2024 11:53 AM CDT Narrative BIA WADE ([place]) - 06/18/2024 12:48 PM CDT Has the patient had Daratumumab or Isatuximab in the past 6 months?->Unknown us Dia Mantilla MD LAB BLOOD BANK TEST ORDERABLES Final Result XUKIP WADE ([place]) 1 [facility] Department [place] [address] * ABO/Rh (06/18/2024 10:25 AM CDT) ABO/Rh O Negative Blood 06/18/2024 10:2 5 AM CDT 06/18/2024 11:53 AM CDT Narrative BIA WADE ([place]) - 06/18/2024 12:48 PM CDT Has the patient had Daratumumab or Isatuximab in the past 6 months?->Unknown Dia Mantilla MD LAB BLOOD BANK TEST ORDERABLES Final Result Performing Organization Address City/[facility]/ZIP Co de Phone Number BIA WADE ([place]) 1 [facility] [place] [address] * GTT 50gm 1hr gestational screen (06/18/2024 [...] BLOOD ORDERABLE S Final Result BIA WADE ([place]) 1 [facility] [place] [address] documented in this encounter Visit Diagnoses Diagnosis Encounter for supervision of normal first in first trimester 20 weeks gestation of documented in this encounter Care Teams Power Shovel Mechanic Relationship Specialty Start Date End Date No, Physician PCP - General 02/25/24 documented as of this encounter
--- OUTSIDE RECORDS SUMMARY | 2024-10-10 01:47 | XMS_ITS | Encounter Summary ---
Author Organization [facility] Healthcare Address [address] [place] [address] Care Team Providers Care Top Inventory Control Executive Name Role Phone No, Physician Primary Care Provider [phone] Reason for Visit * Reason Comments Follow-up Encounter Details Date Type Department Care Team (Late st Contact Info) Description 06/15/2024 2:30 PM CDT Office Visit [facility] Maternal Medicine at [facility] [address] [place] [phone] Nancy Be, FARM EQUIPMENT ENGINEER [address] [facility] [address] [place] [address] Supervision of high-risk , second [...] staff should administer the PHQ-9) 0 05/18/2024 [place] Depression Scale Answer Date Recorded [place] Depression Scale Total 10 05/20/2024 The thought of harming myself has occurred to me . 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 SHIRT CLOSER Gender Identity Not on file Sexual Orientation [...] this encounter Progress Notes * Nancy Be, FARM EQUIPMENT ENGINEER - 06/15/2024 2:30 PM CDT Subjective/Objective Patient ID: Suki Leon is a 29 y.o. female. Chief Complaint Chief Complaint Patient presents with Follow-up HPI Suki returns to the [facility] office at 20 weeks and 2 [...] , 10/31/24 [facility] Results: Foresight, Carrier Screen: [...] Large Ketones, ur, POC Trace(A) Negative Specific Widener, POC 1.020 1.003 - 1.030 Blood, ur, POC Trace(A) Negative pH, ur, POC 7.0 5.0 - 8.0 Protein, ur, POC Negative Negative Urobilinogen, urine, POC 0.2 0.2 - 1.0 mg/dL Nitrite, ur, POC Negative Negative Leukocytes, ur, POC Large(A) Negative Lot Number [id number] Urine 06/15/2024 2:07 PM CDT Byron Tellez [...] documented as of this encounter Care Teams Top Inventory Control Executive Relationship Specialty Start Date End Date No, Physician PCP - General 02/25/24 documented as of this encounter
--- OUTSIDE RECORDS SUMMARY | 2024-10-10 01:47 | XMS_ITS | Encounter Summary ---
Author Organization [facility] Healthcare Address [address] [place] [address] Care Team Providers Care Chargeback Analyst Name Role Phone No, Physician Primary Care Provider [phone] Reason for Visit * Reason Comments Routine Visit 24.1 weeks with brad rogers USG completed for heart tones Flu Vaccine Pt received flu vacc ine today Encounter Details Date Type Department Care Team (Late Contact Info) Description 07/12/2024 10:30 AM CDT Routine [facility] [address] [place] [address] [address] [place] [id number] Dia Mantilla MD [address] [place] [address] [id number] Twin , unable to determine number of [...] staff should administer the PHQ-9) 0 05/18/2024 [place] Depression Scale Answer Date Recorded [place] Depression Scale Total 8 07/12/2024 The thought of harming myself has occurred to me . Never 07/12/2024 Personal Safety Answer Date Recorded Getting School Help Needed Not on file 02/24 Comments Yes Sex and Gender Information Value Date Recorded Sex Assigned at Not on file Legal Sex Female 2:19 AM CERTIFIED EXECUTIVE CHEF Gender Identity Not on file Sexual Orientation [...] BLOOD ORDERABLE S Final Result [facility] ([place]) 1 [facility] Department [place] [address] * (ABNORMAL) POCT OB urine short dip (glucose, protein, ketones) (07/12/2024 10:31 AM CDT) Glucose, ur, POC Negative Negative MG/DL Protein, ur, POC Trace(A) Negative Ketones, ur, POC Negative Negative Lot Number [id number] Urine 07/12/2024 10:3 1 AM CDT Dia [...] 07/12/2024 documented in this encounter Care Teams Chargeback Analyst Relationship Specialty Start Date End Date No, Physician PCP - General 02/25/24 documented as of this encounter
--- OUTSIDE RECORDS SUMMARY | 2024-10-10 01:47 | XMS_ITS | Encounter Summary ---
Author Organization [facility] Healthcare Address [address] [place] [address] Care Team Providers Care Hoop Expander Name Role Phone No, Physician Primary Care Provider [phone] Reason for Visit * Auth/Cert (Routine) Specialty Diagnoses / Procedures Referred By Contac t Referred To Contact Diagnoses Preeclampsia, unspecified trimester Hypertension Procedures N/A Referral ID Status Reason Start Date Expiration Date Visits Re quested Visits Authorized [id number] 1 1 Encounter Details Date Type Department Care Team (Late st Contact Info) Description 08/09/2024 9:30 AM HEELER Ancillary Procedure [address] [place] [address] Social History Tobacco Use Types Packs/Day Years Used Date Smoking Tobacco: Never Smokeless Tobacco: Never [facility] Utilities Answer Date Recorded In the past 12 months has e electric, gas, oil, or water [employer] threatened to shut off services in your [...] any clubs o r organizations such as yarsani groups, unions, fraternal or athletic groups, or [...] staff should administer the PHQ-9) 0 07/28/2024 [facility] - Occupational Stress Questionnaire Answer [...] things needed for daily living? No 07/29/2024 [place] Depression Scale Answer Date Recorded [place] Depression Scale Total 8 07/12/2024 The [...] any time in the past 12 m [facility], were you homeless or living in a retirement (including now)? No 07/29/2024 Personal Safety Answer Date Recorded Have you ever been in or are you currently in a harmful physical or emotional relationship or is someone making you feel afraid or unsafe? Denies 07/29/2024 Comments Yes Sex and Gender Information Value Date Recorded Sex Assigned at Not on file Legal Sex Female 2:19 AM HEELER Gender Identity Not on file Sexual Orientation Not on file documented as of this encounter Plan of Treatment Not on file documented as of this encounter Procedures Procedure Name Priority Date/Time Associated Diagnosis Comments US OB 14 WEEKS OR OVER IP Routine 08/09/2024 9:47 AM HEELER documented in this encounter Results * US Ob 14 Weeks Or Over (08/09/2024 9:47 AM HEELER) Fetus# Fetus1 VIEWPOINT Placenta Details anterior VIEWPOINT Presentation Vertex; Maternal right- low VIEWPOINT Fetus# Fetus2 VIEWPOINT Placenta Details anterior VIEWPOINT Presentation Vertex; Maternal left- high VIEWPOINT Anatomical Region Laterality Modality Abdomen N/A Ultrasound 08/09/2024 9:50 AM HEELER Impressions 08/09/2024 11:52 AM HEELER 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 Anatomic surveys were [...] waspreviously determined to be monochorionic by the [facility] practice.Anatomic surveys were also completed [...] on filedocumented in this encounter Care Teams Hoop Expander Relationship Specialty Start Date End Date No, Physician PCP - General 02/25/24 documented as of this encounter
--- OUTSIDE RECORDS SUMMARY | 2024-10-10 01:47 | XMS_ITS | Encounter Summary ---
Author Organization [facility] Healthcare Address [address] [place] [address] Care Team Providers Care Customer Relations Specialist Name Role Phone No, Physician Primary Care Provider [phone] Reason for Visit * Auth/Cert (Routine) Specialty Diagnoses / Procedures Referred By Contac t Referred To Contact Diagnoses Preeclampsia, unspecified trimester Hypertension Procedures N/A Referral ID Status Reason Start Date Expiration Date Visits Re quested Visits Authorized [id number] 1 1 Encounter Details Date Type Department Care Team (Late st Contact Info) Description 09/08/2024 10:00 AM FAX MACHINE OPERATOR Ancillary Procedure [address] [place] [address] Social History Tobacco Use Types Packs/Day Years Used Date Smoking Tobacco: Never Smokeless Tobacco: Never [facility] Utilities Answer Date Recorded In the past 12 months has e electric, gas, oil, or water [employer] threatened to shut off services in your [...] often do you attend chur ch or hinduism services? Never 07/29/2024 Do you belong to [...] staff should administer the PHQ-9) 0 07/28/2024 [facility] - Occupational Stress Questionnaire Answer [...] things needed for daily living? No 07/29/2024 [place] Depression Scale Answer Date Recorded [place] Depression Scale Total 8 07/12/2024 The thought [...] any time in the past 12 m [facility], were you homeless or living in [...] on file Legal Sex Female 2:19 AM FAX MACHINE OPERATOR Gender Identity Not on file Sexual Orientation Not on file documented as of this encounter Plan of Treatment Not on file documented as of this encounter Procedures Procedure Name Priority Date/Time Associated Diagnosis Comments US OB LIMITED IP Routine 09/08/2024 10:29 AM FAX MACHINE OPERATOR documented in this encounter Results * US Ob Limited (09/08/2024 10:29 AM FAX MACHINE OPERATOR) Fetus# Fetus1 VIEWPOINT Placenta Details anterior VIEWPOINT Presentation Vertex; Maternal right- low VIEWPOINT Fetus# Fetus2 VIEWPOINT Placenta Details anterior VIEWPOINT Presentation Vertex; Maternal left- high (presenting) VIEWPOINT Anatomical Region Laterality Modality Abdomen N/A Ultrasound 09/08/2024 10:2 9 AM FAX MACHINE OPERATOR Impressions 09/08/2024 11:25 AM FAX MACHINE OPERATOR 1. Mo/di twin IUP at [...] on filedocumented in this encounter Care Teams Customer Relations Specialist Relationship Specialty Start Date End Date No, Physician PCP - General 02/25/24 documented as of this encounter
--- OUTSIDE RECORDS SUMMARY | 2024-10-10 01:47 | XMS_ITS | Encounter Summary ---
Author Organization [facility] Healthcare Address [address] [place] [address] Care Team Providers Care Tariff Expert Name Role Phone No, Physician Primary Care Provider [phone] Reason for Referral * Diagnostic Imaging (Routine) - Pending Review Specialty Diagnoses / Procedures Referred By Contac t Referred To Contact Diagnoses High risk , antepartum Monochorionic diamniotic twin , antepartum Procedures US OB Follow up with US Transvaginal (C) Dia Mantilla MD [address] [place] [address] DR BAUTISTA [address] [place] [address] Phone: tel: [place] [address] [place] [address] Referral ID Status Reason Start Date Expiration Date V isits Requested Visits Authorized [id number] Pending Review 05/19/2024 06/18/2025 2 2 Reason for Visit * Diagnostic Imaging (Routine) - Pending Review Specialty Diagnoses / Procedures Referred By Contac t Referred To Contact Diagnoses High risk , antepartum Monochorionic diamniotic twin , antepartum Procedures US OB Follow up with US Transvaginal (C) Dia Mantilla MD [address] [place] [address] DR BAUTISTA [address] [place] [address] Phone: tel: [facility] [address] [place] [address] Referral ID Status Reason Start Date Expiration Date V isits Requested Visits Authorized [id number] Pending Review 05/19/2024 06/18/2025 2 2 Encounter Details Date Type Department Care Team (Latest Contact Info) Description 06/29/2024 1:00 PM CDT - 06/29/2024 11:59 PM CDT Hospital Encounter [facility] Maternal Medicine Ultrasound-[facility] [address] [place] [id number] High risk , antepartum; Monochorionic diamniotic twin [...] staff should administer the PHQ-9) 0 05/18/2024 [place] Depression Scale Answer Date Recorded [place] Depression Scale Total 10 05/20/2024 The thought of harming myself has occurred to me . 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 CUTTER BANANA ROOM Gender Identity Not on file Sexual Orientation [...] twin B is 455 g. This is [id number] percentile for assigned gestational age. The interval [...] antepartum documented in this encounter Care Teams Tariff Expert Relationship Specialty Start Date End Date No, Physician PCP - General 02/25/24 documented as of this encounter
--- OUTSIDE RECORDS SUMMARY | 2024-10-10 01:47 | XMS_ITS | Encounter Summary ---
Author Organization [facility] Healthcare Address [address] [place] [address] Care Team Providers Care Manufacturer Representative Name Role Phone No, Physician Primary Care Provider [phone] Reason for Visit * Reason Comments Follow-up Encounter Details Date Type Department Care Team (Late st Contact Info) Description 07/13/2024 2:30 PM CDT Office Visit [facility] Maternal Medicine at [facility] [address] [facility] [address] [place] [id number] Nancy Be, SEASONAL DELIVERY DRIVER [address] [facility] [address] [place] [address] Unspecified high-risk (Primary Dx) Social [...] staff should administer the PHQ-9) 0 05/18/2024 [place] Depression Scale Answer Date Recorded [place] Depression Scale Total 8 07/12/2024 The thought of harming myself has occurred to me . Never 07/12/2024 Personal Safety Answer Date Recorded Getting School Help Needed Not on file 02/24 Comments Yes Sex and Gender Information Value Date Recorded Sex Assigned at Not on file Legal Sex Female 2:19 AM FUSION OPERATOR Gender Identity Not on file Sexual [...] with Follow-up HPI Suki returns to the [facility] office at 24 weeks and 2 days [...] , 10/31/24 [facility] [employer] Results: Foresight, Carrier Screen: Negative Prequel, Screen: [...] every 6 hours odd calendar days Recommendations: [facility] comanagement is recommended and we will schedule [...] Large Ketones, ur, POC Negative Negative Specific Hines, POC 1.025 1.003 - 1.030 Blood, ur, [...] Primary documented in this encounter Care Teams Manufacturer Representative Relationship Specialty Start Date End Date No, Physician PCP - General 02/25/24 documented as of this encounter
--- OUTSIDE RECORDS SUMMARY | 2024-10-10 01:47 | XMS_ITS | Encounter Summary ---
Author Organization [facility] Healthcare Address [address] [place] [address] Care Team Providers Care Hopper Filler Name Role Phone No, Physician Primary Care Provider [phone] Reason for Referral * Diagnostic Imaging (Routine) - Authorized Specialty Diagnoses / Procedures Referred By Urbano salinas Referred To Contact Radiology Diagnoses Ultrasound scan done for inability to hear heart tones Procedures US Ob Limited Dia Mantilla MD [address] [place] [address] DR BAUTISTA [address] [place] [address] Phone: tel: [facility] [address] [place] [address] [address] [place] [address] Phone: tel: fax: Referral ID Status Reason Start Date Expiration Date V isits Requested Visits Authorized [id number] Authorized 07/28/2024 08/27/2025 1 1 Encounter Details Date Type Department Care Team (Late st Contact Info) Description 07/28/2024 Telephone [facility] [address] [facility] [address] [place] [address] Dia Mantilla MD [address] [place] [address] [address] [place] [address] Social History Tobacco Use Types Packs/Day Years Used Date Smoking Tobacco: Never Smokeless Tobacco: Never [facility] Utilities Answer Date Recorded In the past 12 months has [employer] electric, gas, oil, or water company threatened [...] week 07/29/2024 How often do you attend [facility] or adventism services? Never 07/29/2024 Do you belong to any clubs o r organizations such as presybeterian groups, unions, fraternal or athletic groups, or [...] staff should administer the PHQ-9) 0 07/28/2024 [facility] - Occupational [...] things needed for daily living? No 07/29/2024 [place] Depression Scale Answer Date Recorded [place] Depression Scale Total 8 07/12/2024 The thought [...] any time in the past 12 m [facility], were you homeless or living in a care home (including now)? No 07/29/2024 Personal Safety Answer Date Recorded Have you ever been in or are you currently in a harmful physical or emotional relationship or is someone making you feel afraid or unsafe? Denies 07/29/2024 Comments Yes Sex and Gender Information Value Date Recorded Sex Assigned at Not on file Legal Sex Female 2:19 AM TANK TRUCK MECHANIC Gender Identity Not on file Sexual Orientation Not on file documented as of this encounter Miscellaneous Notes * Telephone Encounter - Beata Joy RN - 07/28/2024 4:24 PM CDT [phone] I called and spoke with patient stating [...] Joy RN - 07/28/2024 11:51 AM CDT [phone] Patient called in stating she had an appt. With Dr. Tellez, [facility] doctor, yesterday. At that appointment it was [...] complication documented in this encounter Care Teams Hopper Filler Relationship Specialty Start Date End Date No, Physician PCP - General 02/25/24 documented as of this encounter
--- OUTSIDE RECORDS SUMMARY | 2024-10-10 01:47 | XMS_ITS | Encounter Summary ---
Author Organization [facility] Healthcare Address [address] [place] [address] Care Team Providers Care Gas Pumping Station Supervisor Name Role Phone No, Physician Primary Care Provider [phone] Reason for Visit * Auth/Cert (Routine) Specialty Diagnoses / Procedures Referred By Contac t Referred To Contact Diagnoses Preeclampsia, unspecified trimester Hypertension Procedures N/A Referral ID Status Reason Start Date Expiration Date Visits Re quested Visits Authorized [id number] 1 1 Encounter Details Date Type Department Care Team (Late st Contact Info) Description 09/15/2024 9:00 AM MINERAL ECONOMIST Ancillary Procedure [address] [place] [address] Social History Tobacco Use Types Packs/Day Years Used Date Smoking Tobacco: Never Smokeless Tobacco: Never [facility] Utilities Answer Date Recorded In the past 12 months has e electric, gas, oil, or water [employer] threatened to shut off services in your [...] often do you attend chur ch or latter day services? Never 07/29/2024 Do you belong to any clubs o r organizations such as pentecostalism groups, unions, fraternal or athletic groups, or [...] should administer the PHQ-9) 0 07/28/2024 [facility] - Occupational Stress Questionnaire Answer Date Recorded [...] things needed for daily living? No 07/29/2024 [place] Depression Scale Answer Date Recorded [place] Depression Scale Total 8 07/12/2024 The thought [...] on file Legal Sex Female 2:19 AM MINERAL ECONOMIST Gender Identity Not on file Sexual Orientation Not on file documented as of this encounter Plan of Treatment Not on file documented as of this encounter Procedures Procedure Name Priority Date/Time Associated Diagnosis Comments US OB FOLLOW UP IP Routine 09/15/2024 1:08 PM MINERAL ECONOMIST documented in this encounter Results * US Ob Follow Up (09/15/2024 1:08 PM MINERAL ECONOMIST) Fetus# Fetus1 VIEWPOINT Estimated Weight 1,709 g&grams VIEWPOINT Placenta Details anterior VIEWPOINT Presentation Vertex; Maternal right- low VIEWPOINT Fetus# Fetus2 VIEWPOINT Estimated Weight 2,585 g&grams VIEWPOINT Placenta Details anterior VIEWPOINT Presentation Vertex; Maternal left- high VIEWPOINT Anatomical Region Laterality Modality Abdomen N/A Ultrasound 09/15/2024 1:08 PM MINERAL ECONOMIST Impressions 09/15/2024 2:24 PM MINERAL ECONOMIST Diamniotic (presumed MCDA) TIUP at 33w33d who is admitted for preE with severe features who presents for growth US was previously determined to be monochorionic by the [facility] practice. A thin dividing membrane and [...] previously determined to be monochorionic by the [facility]. A thin dividing membrane and single [...] on filedocumented in this encounter Care Teams Gas Pumping Station Supervisor Relationship Specialty Start Date End Date No, Physician PCP - General 02/25/24 documented as of this encounter
--- OUTSIDE RECORDS SUMMARY | 2024-10-10 01:47 | XMS_ITS | Encounter Summary ---
Author Organization [facility] Healthcare Address [address] [place] [address] Care Team Providers Care Financial Compliance Examiner Name Role Phone No, Physician Primary Care Provider [phone] Reason for Visit * Reason Comments Ultrasound * Diagnostic Imaging (Routine) - Closed Specialty Diagnoses / Procedures Referred By Contac t Referred To Contact Radiology Diagnoses Ultrasound scan done for inability to hear heart tones Procedures US Ob Limited Dia Mantilla MD [address] [place] [address] DR MICHELE [address] [place] [address] Phone: tel: [facility] [address] [place] [address] [address] [place] [address] Phone: tel: fax: Referral ID Status Reason Start Date Expiration Date Visits Re quested Visits Authorized [id number] Closed 06/13/2024 07/13/2025 1 1 Encounter Details Date Type Department Care Team (Latest Contact Info) Description 07/12/2024 10:00 AM CDT Ancillary Procedure [facility] [address] [place] [address] [address] [place] [address] Ultrasound scan done for inability [...] staff should administer the PHQ-9) 0 05/18/2024 [place] Depression Scale Answer Date Recorded [place] Depression Scale Total 8 07/12/2024 The thought of harming myself has occurred to me . Never 07/12/2024 Personal Safety Answer Date Recorded Getting School Help Needed Not on file 02/24 Comments Yes Sex and Gender Information Value Date Recorded Sex Assigned at Not on file Legal Sex Female 2:19 AM CNC TECHNICIAN Gender Identity Not on file Sexual [...] complication documented in this encounter Care Teams Financial Compliance Examiner Relationship Specialty Start Date End Date No, Physician PCP - General 02/25/24 documented as of this encounter
--- OUTSIDE RECORDS SUMMARY | 2024-10-10 01:47 | XMS_ITS | Encounter Summary ---
Author Organization [facility] Healthcare Address [address] [place] [address] Care Team Providers Care Accounting Officer Name Role Phone No, Physician Primary Care Provider [phone] Reason for Referral * Diagnostic Imaging (Routine) - Pending Review Specialty Diagnoses / Procedures Referred By Contac t Referred To Contact Diagnoses High risk , antepartum Monochorionic diamniotic twin , antepartum Procedures US OB Heart with US Follow up (C) Dia Mantilla MD [address] [place] [address] DR BAUTISTA [address] [place] [address] Phone: tel: [place] [id number] [place] [address] Referral ID Status Reason Start Date Expiration Date V isits Requested Visits Authorized [id number] Pending Review 05/19/2024 06/18/2025 1 1 Reason for Visit * Diagnostic Imaging (Routine) - Pending Review Specialty Diagnoses / Procedures Referred By Contac t Referred To Contact Diagnoses High risk , antepartum Monochorionic diamniotic twin , antepartum Procedures US OB Heart with US Follow up (C) Dia Mantilla MD [address] [place] [address] DR BAUTISTA [address] [place] [address] Phone: tel: [facility] [address] [place] [address] Referral ID Status Reason Start Date Expiration Date V isits Requested Visits Authorized [id number] Pending Review 05/19/2024 06/18/2025 1 1 Encounter Details Date Type Department Care Team (Latest Contact Info) Description 07/13/2024 11:25 AM CDT - 07/13/2024 11:59 PM CDT Hospital Encounter [facility] Maternal Medicine Ultrasound[facility] [address] [place] [address] High risk , antepartum; Monochorionic diamniotic twin [...] staff should administer the PHQ-9) 0 05/18/2024 [place] Depression Scale Answer Date Recorded [place] Depression Scale Total 8 07/12/2024 The thought of harming myself has occurred to me . Never 07/12/2024 Personal Safety Answer Date Recorded Getting School Help Needed Not on file 02/24 Comments Yes Sex and Gender Information Value Date Recorded Sex Assigned at Not on file Legal Sex Female 2:19 AM TRAM INSPECTOR Gender Identity Not on file Sexual [...] antepartum documented in this encounter Care Teams Accounting Officer Relationship Specialty Start Date End Date No, Physician PCP - General 02/25/24 documented as of this encounter
--- OUTSIDE RECORDS SUMMARY | 2024-10-10 01:47 | XMS_ITS | Encounter Summary ---
Author Organization [facility] Healthcare Address [address] [place] [address] Care Team Providers Care Director Of Respiratory Therapy Name Role Phone No, Physician Primary Care Provider [phone] Encounter Details Date Type Department Care Team (Late st Contact Info) Description 07/12/2024 10:55 AM CDT [address] Encounter for supervision of normal first [...] staff should administer the PHQ-9) 0 05/18/2024 [place] Depression Scale Answer Date Recorded [place] Depression Scale Total 8 07/12/2024 The thought of harming myself has occurred to me . Never 07/12/2024 Personal Safety Answer Date Recorded Getting School Help Needed Not on file 02/24 Comments Yes Sex and Gender Information Value Date Recorded Sex Assigned at Not on file Legal Sex Female 2:19 AM CLOTH HAND Gender Identity Not on file Sexual [...] BLOOD ORDERABLE S Final Result [facility] ([place] Department [place] [address] documented in this encounter Visit Diagnoses Diagnosis Encounter for supervision of normal first in first trimester documented in this encounter Care Teams Director Of Respiratory Therapy Relationship Specialty Start Date End Date No, Physician PCP - General 02/25/24 documented as of this encounter
--- OUTSIDE RECORDS SUMMARY | 2024-10-10 01:47 | XMS_ITS | Encounter Summary ---
Author Organization [facility] Healthcare Address [address] [place] [address] Care Team Providers Care Judge'S Clerk Name Role Phone No, Physician Primary Care Provider [phone] Reason for Visit * Reason Comments Follow-up Encounter Details Date Type Department Care Team (Late st Contact Info) Description 06/29/2024 3:00 PM CDT Office Visit [facility] [address] [place] [id number] Nancy Be, [employer] ATTENDANT [address] [facility] [address] [place] [address] Supervision of high-risk , second [...] staff should administer the PHQ-9) 0 05/18/2024 Jamul Depression Scale Answer Date Recorded Jamul Depression Scale Total 10 05/20/2024 The thought of harming myself has occurred to me . 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 SAW FEEDER Gender Identity Not on file Sexual [...] with Follow-up HPI Suki returns to the [facility] office at 22 weeks and 2 days [...] 10/31/24 - primary OB is Dr. Mantilla, [facility] -Received Myriad Results: Foresight, Carrier Screen: Negative [...] Large Ketones, ur, POC Trace(A) Negative Specific [place], POC 1.015 1.003 - 1.030 Blood, ur, POC Negative Negative pH, ur, POC 6.0 5.0 - 8.0 Protein, ur, POC Negative Negative Urobilinogen, urine, POC 0.2 0.2 - 1.0 mg/dL Nitrite, ur, POC Negative Negative Leukocytes, ur, POC Moderate(A) Negative Lot Number [id number] , Urine 06/29/2024 2:20 PM CDT us Nancy Be NP POINT OF CARE TEST ORD ERABLES Final Result documented in this encounter Visit Diagnoses Diagnosis Supervision of high-risk , second trimester- Primary documented in this encounter Care Teams Judge'S Clerk Relationship Specialty Start Date End Date No, Physician PCP - General 02/25/24 documented as of this encounter
--- OUTSIDE RECORDS SUMMARY | 2024-10-10 01:47 | XMS_ITS | Encounter Summary ---
Author Organization [facility] Healthcare Address [address] [place] [address] Care Team Providers Care Sterile Preparation Technician Name Role Phone No, Physician Primary Care Provider Reason for Visit * Auth/Cert (Routine) Specialty Diagnoses / Procedures Referred By Contac t Referred To Contact Diagnoses Preeclampsia, unspecified trimester Hypertension Procedures N/A Referral ID Status Reason Start Date Expiration Date Visits Re quested Visits Authorized [id number] 1 1 Encounter Details Date Type Department Care Team (Late st Contact Info) Description 09/19/2024 1:30 PM MANAGER OF CLINICAL - 09/19/2024 4:05 PM MANAGER OF CLINICAL Surgery [address] [phone] Josefina Peter MD [address] [address] SECTION Surgery Details Date/Time Status Location OR Service Patient Class Case Class Case Type Trauma Case? 09/19/2024 1:30 PM Posted [facility] L&D OR L&D OR 1 Obstetrics / [...] Date Smoking Tobacco: Never Smokeless Tobacco: Never [facility] Utilities Answer Date Recorded In [...] any clubs o r organizations such as christianity groups, unions, fraternal or athletic groups, or [...] staff should administer the PHQ-9) 0 07/28/2024 [facility] Occupat ional [facility] - Occupational Stress Questionnaire Answer Date [...] things needed for daily living? No 07/29/2024 Beau[place] Depression Scale Answer Date Recorded Beau[place] Depression Scale Total 8 07/12/2024 The thought [...] any time in the past 12 m [facility], were you homeless or [...] file Legal Sex Female 2:19 AM MANAGER OF CLINICAL Gender Identity Not on file Sexual Orientation Not on file documented as of this encounter Last Filed Vital Signs Vital Sign Reading Time Taken Comments Blood Pressure 134/77 09/19/2024 4:05 PM MANAGER OF CLINICAL Pulse 80 09/19/2024 4:05 PM MANAGER OF CLINICAL Temperature 36.7 ??C (98 ??F) 09/19/2024 6:09 AM MANAGER OF CLINICAL Respiratory Rate 20 09/19/2024 4:05 PM MANAGER OF CLINICAL Oxygen Saturation 100% 09/19/2024 4:05 PM MANAGER OF CLINICAL Inhaled Oxygen Concentration - - Weight 128.8 [...] 09/19/2024t 2:59 PM Delivery method: Regino Leon [[id number]] [351] Morales Leon [[id number]] [351] Primary Discharge Diagnosis: Intrauterine at 34w0d, [...] Blood pressures well controlled on N120XL and S197OCM. CBC/CMP WNL, UPC 0.1.Enrolled in remote blood [...] # Disposition: Follow up task sent to [facility] scheduling pool for appointments in 2 and 6 weeks. They are enrolled in remote blood pressure monitoring for their BP check. Desires discharge home today. Service Coverage These phones are service phones and carried 27/04 in house: R1 (first call) [phone] R1 alt (second call) [phone] R4 (Chief) [phone] See full physical exam from progress note [...] Provider Department Center 10/13/2024 1:40 PM MFM [facility]C [facility] 7 OB CATALINA Tena 09/22/24 I reviewed and edited the above for accuracy & clarity Willie Kelly MD GER OF CLINICAL GER OF CLINICAL documented in this encounter Discharge Instructions * Discharge Instructions* Ana Gauthier NP - 09/20/2024 10:10 AM MANAGER OF CLINICAL Images from the original note were not included. Discharge Instructions - Section For any concerns call our OB communication center at [phone] 27/04. * If you have SEVERE illness [...] hours). Do NOT supplement unless instructed by Agricultural Education Professor. Call your Agricultural Education Professor if your baby has poor eating habits [...] call our centralized OB communication center at [phone]. Do not come to the hospital or clinic until you speak with a provider. Contact Information for your primary OB: [facility] - [address] [place] [address] Call to schedule an appointment to be [...] right, call our OB communication center at [phone]. High blood pressure problems during & after [...] should call the doctor if you experience: MCC risks of preeclampsia If you had preeclampsia [...] 200 mg capsule Commonly known as: PROMETRIUM GER OF CLINICAL GER OF CLINICAL documented in this encounter Medications at Time [...] this encounter Progress Notes * Ana Gauthier, ARC [facility]TER [facility] ARC - 09/22/2024 9:10 AM CST Post Progress Note Admission Date: 07/29/2024 SUBJECTIVE Suki Salgadoth Edward is a 29 y.o. postop day 3 s/p Regino Leon [[id number]] Morales Leon [[id number]] . Pain: Controlled Bleeding: lochia minimal Oral [...] ABORH O Negative 09/20/2024 IDCOOMB Negative 09/18/2024 [id number] Nonreactive 08/13/2024 LABRPR Nonreactive 08/13/2024 RUBELIGG Reactive [...] AND calcium gluconate AND Magnesium cyclobenzaprine ibuprofen wcjdcsb-mibbm-aabwtmn ondansetron ODT OR ondansetron oxyCODONE simethicone sodium chloride 0.9% ASSESSMENT/PLAN Suki Leon is a 29 y.o. female postop day 3 s/p Regino Leon [[id number]] Morales Leon [[id number]] . Problem Care Following Delivery # ID: [...] Blood pressures well controlled on N120XL and Y172QSC. CBC/CMP WNL, UPC 0.1.Enrolled in remote blood [...] # Disposition: Follow up task sent to [facility] scheduling pool for appointments in 2 and 6 weeks. They are enrolled in remote blood pressure monitoring for their BP check. Desires discharge home today. Service Coverage These phones are service phones and carried 27/04 in house: R1 (first call) [phone] R1 alt (second call) [phone] R4 (Chief) [phone] CATALINA Tena 09/22/24 Cosigned by Willie Kelly MD at 09/22/2024 4:18 PM MANAGER OF CLINICAL GER OF CLINICAL GER OF CLINICAL * Marge Castro RD - 09/21/2024 3:22 [...] Adult Diet Regular Diet effective now Question: ([facility]) Diet type Answer: Regular 09/19/24 1634 Assessment / Impression: Attempted to see patient for follow-up nutrition screen, but she was not in the room at time of visit. She is on a regular diet and previously reported good PO intake. Per progress notes she plans to breast feed. Left breast feeding nutrition therapy education at bedside. Marge Castro MS, RD, CNSC, LD Cell GER OF CLINICAL * Millie Pierce LCSW - 09/21/2024 12:19 PM CST Reason for Admission RITA (Suki Leon 1995) was admitted on 07/29/2024 for Preeclampsia, unspecifiedtrimester [O14.90]. Social Work met with Suki Leon for check in. Medical History OB-PERSONAL CARE AIDE care has been established with BONNIE. Pediatric follow-up to be scheduled throughout twins' admission to the [facility] NICU. Medical insurance coverage is through [employer], [employer]. Information Pt. delivered twin baby's with a of 09/19/24. Twins' EGA's are . Baby boy A's name is Regino and weighed 5lb 8.2oz at delivery. Baby boy B's name is Morales and weighed 4lb 3oz. Pt. delivered via . Babies were admitted to the [facility] NICU. Pt. plans to breast feed the twins and is currently pumping. These are the Pt.'s first children. admitted to [facility] NICU re: prematurity, RDS. Social History Current address is [address] [place] [phone], where she lives with her . Currently [phone] (home) is the best phone number for future contact. MOB reports that her and their families will be a positive support for her and her child. Father of the baby, Florentino Leon, can be reached at [phone]. FOB has been present and supportive at the hospital. Mood and Anxiety Maternal history of anxiety. SW and MOB discussed mental health and coping throughout inpatient APUadmission. MOB continues to report manageable mood and is adjusting as expected to twins' admssion to [facility] NICU. SW and MOB discussed the signs [...] are provided in Welcome Folder. SW reviews [facility] NICU SW and [facility] support services available [...] Family eligible for local lodging referrals ([place], [place])- This clinician reviews [facility] resources, including waitlist and need for background checks to be completed prior to their entry. Family understanding and agreeable to referral- this clinician completes referral, as requested. [facility] SW provides support and encouragement. Family denies having any questions or concerns for this clinician. Strengths MOB is open and receptive to Social Work intervention, education, and resources. Safe Discharge Plan [facility] SW to collaborate with [facility] NICU SW (Sim Georgestheodore, ) for family care handoff, as needed. NICU SW will follow up with family throughout remainder of infant's admission to [facility]. No further [facility] SW needs indicated at this time. ARACELIS Tyler, REHABILITATION PHYSICIAN [facility] Clinical Silica Filter Operator Women and Infants Units GER OF CLINICAL * Ana Gauthier NP - 09/21/2024 8:55 AM CST Post Progress Note Admission Date: 07/29/2024 SUBJECTIVE Suki Leon is a 29 y.o. postop day 2 s/p Tiffany Leon [[id number]] Nancy Leon [[id number]] . Pain: moderately Controlled Bleeding: lochia minimal [...] ABORH O Negative 09/20/2024 IDCOOMB Negative 09/18/2024 [id number] Nonreactive 08/13/2024 LABRPR Nonreactive 08/13/2024 RUBELIGG Reactive [...] AND calcium gluconate AND Magnesium cyclobenzaprine ibuprofen ydmtadn-qeleo-fymzfhk ondansetron ODT OR ondansetron oxyCODONE simethicone sodium chloride 0.9% varicella zoster ASSESSMENT/PLAN Suki Leon is a 29 y.o. female postop day 2 s/p Tiffany Leon [[id number]] Nancy Leon [[id number]] . Problem Care Following Delivery # ID: [...] Blood pressures well controlled on N120XL and W053YRV. CBC/CMP WNL, UPC 0.1.Enrolled in remote blood [...] # Disposition: Follow up task sent to [facility] scheduling pool for appointments in 2 and 6 weeks. They are enrolled in remote blood pressure monitoring for their BP check. Continue routine postoperative care. Service Coverage These phones are service phones and carried 27/04 in house: R1 (first call) [phone] R1 alt (second call) [phone] R4 (Chief) [phone] CATALINA Tena 09/21/24 Cosigned by Angelica Amin MD at 09/21/2024 5:43 PM MANAGER OF CLINICAL GER OF CLINICAL GER OF CLINICAL GER OF CLINICAL Associated attestation - Angelica Amin MD - 09/21/2024 5:43 PM MANAGER OF CLINICAL The nurse practitioner saw and examined the patient, we discussed their findings, and I am in agreement with the plan based on the discussion with the nurse practitioner. I did not personally examinethe patient as she was out of her room at the time of rounding. Angleica Amin MD * Carola Murphy - 09/20/2024 1:15 PM CST Chaplain Carola Murphy [facility] Spiritual Care Triage: [phone] 09/20/24 1300 Time Spent Start Time 1300 Stop Time 1315 Time Calculation (min) 15 min Clinical Encounter Type Visited With Patient Response Type Routine visit;Continuing visit Routine Visit Follow-up Reason for visit Support Outcomes and Progress Demonstrating care and respect Achieved Establish rapport and connectedness Achieved Interventions Interventions Offer emotional support GER OF CLINICAL * Marielle Shanks DO - 09/20/2024 6:47 AM CST Post Progress Note Delivery Date/Time: 09/19/2024t 2:59 PM Delivery method: Tiffany Leon [[id number]] [351] Nancy Leon [[id number]] [351] Subjective Suki Leon is a 29 y.o. POD#1 from [facility]. Doing well this morning, does notlike how [...] sodium chloride 0.9%, 0.5-20 mL, intra-catheter, Q8H AHSLEY (ALT) PRN Medications acetaminophen calcium carbonate [COMPLETED] magnesium sulfate AND magnesium sulfate AND calcium gluconate AND Magnesium HYDROmorphone ibuprofen gejoppz-jutnz-gbtttgk naloxone ondansetron ondansetron ODT OR ondansetron oxyCODONE [...] Blood pressures well controlled on N120XL and H942FEV. CBC/CMP WNL, UPC 0.1. To be enrolled [...] # Disposition: Follow up task sent to [facility] scheduling pool for appointments in 2 and 6 weeks. They are enrolled in remote blood pressure monitoring for their BP check. Continue routine postoperative care. Service Coverage These phones are service phones and carried 27/04 in house: R1 (first call) [phone] R1 alt (second call) [phone] R4 (Chief) [phone] Marielle Shanks DO Resident Physician, PGY-1 Department of Obstetrics & Gynecology R4 Attestation I agree with the above documentation. POD#1 scheduled pLTCS for Shay and PreEwSF. Continues on MgSO4 until this afternoon 1500, BPs well controlled on current 2 agent regimen. Continue routine care. Sue Rodriguez MD PGY-4 Cosigned by Abigail Alberto MD at 09/20/2024 6:12 PM MANAGER OF CLINICAL GER OF CLINICAL GER OF CLINICAL GER OF CLINICAL Associated attestation - Abigail Alberto MD - 09/20/2024 6:12 PM MANAGER OF CLINICAL I have seen and examined the patient [...] 18 BP: (123-140)/(77-87) 123/79 FHR: reactive NST [place]: no regular contractions Physical Exam General: No [...] Josefina Peter MD at 10/05/2024 8:24 PM MANAGER OF CLINICAL GER OF CLINICAL GER OF CLINICAL Associated attestation - Josefina Peter MD - 10/05/2024 8:24 PM MANAGER OF CLINICAL I have seen and examined the patient [...] 18 BP: (112-135)/(62-89) 135/89 FHR: reactive NST [place]: no regular contractions Physical Exam General: No [...] Sandra Christy MD at 09/18/2024 8:19 AM MANAGER OF CLINICAL GER OF CLINICAL GER OF CLINICAL Associated attestation - Sandra Christy MD - 09/18/2024 8:19 AM MANAGER OF CLINICAL I have seen and examined the patient. [...] BP: (117-136)/(76-91) 133/81 FHR: reactive NST x2 [place]: no regular contractions Physical Exam General: No [...] Sandra Christy MD at 09/17/2024 8:19 AM MANAGER OF CLINICAL GER OF CLINICAL GER OF CLINICAL Associated attestation - Sandra Christy MD - 09/17/2024 8:19 AM MANAGER OF CLINICAL I have seen and examined the patient. I agree with the findings and plan of care as documented in this note. Sandra Christy MD MS Maternal- Medicine * Carola Murphy - 09/16/2024 11:15 AM CST Chaplain Carola Murphy [facility] Spiritual Care Triage: [phone] 09/16/24 1100 Time Spent Start Time 1100 Stop Time 1115 Time Calculation (min) 15 min Clinical Encounter Type Visited With Patient Response Type Routine visit;Continuing visit Routine Visit Follow-up Reason for visit Support Outcomes and Progress Demonstrating care and respect Achieved Establish rapport and connectedness Achieved Interventions Interventions Offer emotional support;Offer spiritual/sabianism support;Prayer GER OF CLINICAL * Rey Quinonez MD - 09/16/2024 7:00 [...] BP: (119-136)/(70-83) 126/79 FHR: reactive NST x2 [place]: no regular contractions Physical Exam General: No [...] Sandra Christy MD at 09/16/2024 9:27 AM MANAGER OF CLINICAL GER OF CLINICAL GER OF CLINICAL Associated attestation - Sandra Christy MD - 09/16/2024 9:27 AM MANAGER OF CLINICAL I have seen and examined the patient. [...] All questions answered. Plan to schedule CS [id number] and continue daily testing. Joellen Schilling MD Maternal- Medicine Fellow GER OF CLINICAL * Anastasia Plaza MD - 09/15/2024 7:57 [...] BP: (122-137)/(61-88) 124/61 FHR: reactive NST x2 [place]: no regular contractions Physical Exam General: No [...] Sandra Christy MD at 09/15/2024 11:55 AM MANAGER OF CLINICAL GER OF CLINICAL GER OF CLINICAL Associated attestation - Sandra Christy MD - 09/15/2024 11:55 AM MANAGER OF CLINICAL I have seen and examined the patient. [...] BP: (127-141)/(86-99) 140/91 FHR: reactive NST x2 [place]: no regular contractions Physical Exam General: No [...] note. Sandra Christy MD MS Maternal- Medicine GER OF CLINICAL GER OF CLINICAL * Millie Pierce LCSW - 09/13/2024 2:28 [...] social needs. SW remains available. ARACELIS Tyler, REHABILITATION PHYSICIAN [facility] Clinical Silica Filter Operator Women and Infants Units GER OF CLINICAL * Anastasia Plaza MD - 09/13/2024 7:11 [...] BP: (120-137)/(71-92) 131/84 FHR: reactive NST x2 [place]: no regular contractions Physical Exam General: No [...] Sandra Christy MD at 09/13/2024 10:29 AM MANAGER OF CLINICAL GER OF CLINICAL GER OF CLINICAL Associated attestation - Sandra Christy MD - 09/13/2024 10:29 AM MANAGER OF CLINICAL I have seen and examined the patient. I agree with the findings and plan of care as documented in this note. Sandra Christy MD MS Maternal- Medicine * Carola Murphy - 09/12/2024 11:00 AM CST Chaplain Carola Murphy [facility] Spiritual Care Triage: [phone] 09/12/24 1045 Time Spent Start Time 1045 Stop Time 1100 Time Calculation (min) 15 min Clinical Encounter Type Visited With Patient Response Type Routine visit;Continuing visit Routine Visit Follow-up Reason for visit Support Outcomes and Progress Demonstrating care and respect Achieved Establish rapport and connectedness Achieved Interventions Interventions Offer emotional support;Offer spiritual/sabianism support GER OF CLINICAL * Rey Quinonez MD - 09/12/2024 7:24 [...] BP: (120-143)/(76-90) 125/87 FHR: reactive NST x2 [place]: no regular contractions Physical Exam General: No [...] Sandra Christy MD at 09/12/2024 9:25 AM MANAGER OF CLINICAL GER OF CLINICAL GER OF CLINICAL Associated attestation - Sandra Christy MD - 09/12/2024 9:25 AM MANAGER OF CLINICAL I have seen and examined the patient. [...] BP: (124-139)/(79-87) 136/79 FHR: reactive NST x2 [place]: no regular contractions Physical Exam General: No [...] Sara Eng MD at 09/11/2024 9:48 AM MANAGER OF CLINICAL GER OF CLINICAL GER OF CLINICAL Associated attestation - Sara Eng MD - 09/11/2024 9:48 AM MANAGER OF CLINICAL I have seen and examined the patient [...] BP: (124-134)/(78-86) 125/81 FHR: reactive NST x2 [place]: no regular contractions Physical Exam General: No [...] Nini Cortez MD at 09/10/2024 3:14 PM MANAGER OF CLINICAL GER OF CLINICAL GER OF CLINICAL Associated attestation - Nini Cortez MD - 09/10/2024 3:14 PM MANAGER OF CLINICAL MFM Attending Attestation I have seen and [...] BP: (121-138)/(72-87) 130/76 FHR: reactive NST x2 [place]: no regular contractions Physical Exam General: No [...] Sara Eng MD at 09/09/2024 12:11 PM MANAGER OF CLINICAL GER OF CLINICAL GER OF CLINICAL Associated attestation - Sara Eng MD - 09/09/2024 12:11 PM MANAGER OF CLINICAL I have seen and examined the patient on 09/09/24. I agree with the findings and plan of care as documented in the resident's/fellow's note. Sara Eng MD. * Raffi Murphya Wilson - 09/08/2024 11:40 AM CST Chaplain Carola Murphy [facility] Spiritual Care Triage: [phone] 09/08/24 1100 Time Spent Start Time 1120 Stop Time 1140 Time Calculation (min) 20 min Clinical Encounter Type Visited With Patient Response Type Routine visit;Continuing visit Routine Visit Follow-up Reason for visit Support Outcomes and Progress Demonstrating care and respect Achieved Establish rapport and connectedness Achieved Interventions Interventions Offer emotional support;Offer spiritual/sabianism support GER OF CLINICAL * Anastasia Plaza MD - 09/08/2024 7:34 [...] came to visit yesterday, went to the [employer] shop and cafeteria SUBJECTIVE - good movement x2, no LOF, VB, CTX - Denies HARRY, vision changes, SOB, chest pain, RUQ pain, new swelling changes. Review of Systems Negative except as per above OBJECTIVE Vitals: Temp: [36.6 ??C (97.9 ??F)-37 ??C (98.6 ??F)] 36.6 ??C (97.9 ??F) Pulse: [87-113] 95 Resp: [16-18] 18 BP: (119-138)/(61-87) 138/87 FHR: reactive NST x2 [place]: no regular contractions Physical Exam General: No [...] Sara Eng MD at 09/08/2024 10:42 AM MANAGER OF CLINICAL GER OF CLINICAL GER OF CLINICAL GER OF CLINICAL Associated attestation - Sara Eng MD - 09/08/2024 10:42 AM MANAGER OF CLINICAL I have seen and examined the patient [...] Adult Diet Regular Diet effective now Question: ([facility]) Diet type Answer: Regular 07/29/24 1220 Assessment / Impression: Met with patient at bedside. She reported good appetite and PO intake. Recommend weekly weights. RD will continue to monitor. Marge Castro MS, RD, CNSC, LD Cell GER OF CLINICAL * Anastasia Plaza MD - 09/07/2024 6:27 [...] BP: (117-173)/(71-96) 120/71 FHR: reactive NST x2 [place]: no regular contractions Physical Exam General: No [...] Sara Eng MD at 09/07/2024 9:34 AM MANAGER OF CLINICAL GER OF CLINICAL GER OF CLINICAL Associated attestation - Sara Eng MD - 09/07/2024 9:34 AM MANAGER OF CLINICAL I have seen and examined the patient [...] Rey Quinonez MD Obstetrics and Gynecology, PGY-2 GER OF CLINICAL * Anastasia Plaza MD - 09/06/2024 7:23 [...] BP: (125-147)/(81-95) 128/87 FHR: reactive NST x2 [place]: no regular contractions Physical Exam General: No [...] Sara Eng MD at 09/06/2024 11:17 AM MANAGER OF CLINICAL GER OF CLINICAL GER OF CLINICAL Associated attestation - Sara Eng MD - 09/06/2024 11:17 AM MANAGER OF CLINICAL I have seen and examined the patient [...] gas cards SW remains available. ARACELIS Tyler, REHABILITATION PHYSICIAN [facility] Clinical Silica Filter Operator Women and Infants Units GER OF CLINICAL * Rey Quinonez MD - 09/05/2024 7:11 [...] BP: (125-156)/(78-99) 125/86 FHR: reactive NST x2 [place]: no regular contractions Physical Exam General: No [...] Sara Eng MD at 09/05/2024 9:05 AM MANAGER OF CLINICAL GER OF CLINICAL GER OF CLINICAL Associated attestation - Sara Eng MD - 09/05/2024 9:05 AM MANAGER OF CLINICAL I have seen and examined the patient [...] BP: (127-141)/(78-90) 127/90 FHR: reactive NST x2 [place]: no regular contractions Physical Exam General: No [...] have edited where appropriate. Josefina Peter MD GER OF CLINICAL GER OF CLINICAL * Josefina Peter MD - 09/03/2024 7:07 [...] BP: (127-156)/(69-111) 132/88 FHR: reactive NST x2 [place]: no regular contractions Physical Exam General: No [...] have edited where appropriate. Josefina Peter MD GER OF CLINICAL GER OF CLINICAL * Nini Melendez MD - 09/02/2024 10:59 AM CST R2 Update: Patient persistently MR, will give additional 30 mg NXL now and increase to 120 mg NXL tomorrow AM. Ashley Melendez MD MPH PGY2 OBGYN GER OF CLINICAL * Maureen Calix MD - 09/02/2024 7:13 [...] BP: (125-141)/(60-94) 125/60 FHR: reactive NST x2 [place]: no regular contractions Physical Exam General: No [...] Jessica Naranjo MD at 09/02/2024 9:53 AM MANAGER OF CLINICAL GER OF CLINICAL GER OF CLINICAL Associated attestation - Jessica Naranjo MD - 09/02/2024 9:53 AM MANAGER OF CLINICAL Images from the original note were not [...] Asymptomatic. Continue inpatient management. Jessica Naranjo MD Cro Division of Maternal- Medicine and Ultrasound Department of Obstetrics and Gynecology [facility] 09/02/2024 * Maureen Calix MD - [...] BP: (126-139)/(84-103) 131/91 FHR: reactive NST x2 [place]: no regular contractions Physical Exam General: No [...] Jessica Naranjo MD at 09/01/2024 9:34 AM MANAGER OF CLINICAL GER OF CLINICAL GER OF CLINICAL Associated attestation - Jessica Naranjo MD - 09/01/2024 9:34 AM MANAGER OF CLINICAL Images from the original note were not [...] Asymptomatic. Continue inpatient management. Jessica Naranjo MD Cro Division of Maternal- Medicine and Ultrasound Department of Obstetrics and Gynecology [facility] 09/01/2024 * Maggi [...] for pt's to travel between home and [facility] to provide support. SW remains available. Maggi Huang MSW, REHABILITATION PHYSICIAN Social Work GER OF CLINICAL * Anastasia Plaza MD - 08/31/2024 6:46 [...] BP: (118-140)/(69-94) 140/94 FHR: reactive NST x2 [place]: no regular contractions Physical Exam General: No [...] consult 08/10 - MONITORING PLAN: dNST - hSay screeening ultrasound: growth due 09/21, TTTS/TAPS screen [...] Nini Cortez MD at 08/31/2024 12:26 PM MANAGER OF CLINICAL GER OF CLINICAL GER OF CLINICAL Associated attestation - Nini Cortez MD - 08/31/2024 12:26 PM MANAGER OF CLINICAL MFM Attending Attestation I have seen and [...] BP: (132-137)/(75-92) 132/83 FHR: reactive NST x2 [place]: no regular contractions Physical Exam General: No [...] Nini Cortez MD at 08/30/2024 11:35 AM MANAGER OF CLINICAL GER OF CLINICAL GER OF CLINICAL Associated attestation - Nini Cortez MD - 08/30/2024 11:35 AM MANAGER OF CLINICAL MFM Attending Attestation I have seen and [...] BP: (123-145)/(75-92) 123/75 FHR: reactive NST x2 [place]: no regular contractions Physical Exam General: No [...] Nini Cortez MD at 08/29/2024 9:11 AM MANAGER OF CLINICAL GER OF CLINICAL GER OF CLINICAL Associated attestation - Nini Cortez MD - 08/29/2024 9:11 AM MANAGER OF CLINICAL MFM Attending Attestation I have seen and [...] Meena Khalil MD PGY-2 Obstetrics & Gynecology GER OF CLINICAL * Anastasia Plaza MD - 08/28/2024 6:26 [...] BP: (130-135)/(84-97) 135/86 FHR: reactive NST x2 [place]: no regular contractions Physical Exam General: No [...] Kaela Mcallister MD at 08/28/2024 7:37 AM MANAGER OF CLINICAL GER OF CLINICAL GER OF CLINICAL Associated attestation - Kaela Mcallister MD - 08/28/2024 7:37 AM MANAGER OF CLINICAL I have seen and examined the patient [...] BP: (125-135)/(69-93) 127/84 FHR: reactive NST x2 [place]: no regular contractions Physical Exam General: No [...] Kaela Mcallister MD at 08/27/2024 8:46 AM MANAGER OF CLINICAL GER OF CLINICAL GER OF CLINICAL Associated attestation - Kaela Mcallister MD - 08/27/2024 8:46 AM MANAGER OF CLINICAL I have seen and examined the patient [...] BP: (124-138)/(74-92) 127/82 FHR: reactive NST x2 [place]: no regular contractions Physical Exam General: No [...] Byron Lakhani MD at 08/26/2024 1:03 PM MANAGER OF CLINICAL GER OF CLINICAL GER OF CLINICAL Associated attestation - Byron Lakhani MD - 08/26/2024 1:03 PM MANAGER OF CLINICAL I have seen and examined the patient [...] BP: (129-139)/(81-90) 130/90 FHR: reactive NST x2 [place]: no regular contractions Physical Exam General: No [...] Byron Lakhani MD at 08/25/2024 10:24 AM MANAGER OF CLINICAL GER OF CLINICAL GER OF CLINICAL Associated attestation - Byron Lakhani MD - 08/25/2024 10:24 AM MANAGER OF CLINICAL I have seen and examined the patient [...] BP: (129-142)/(79-95) 139/84 FHR: reactive NST x2 [place]: no regular contractions Physical Exam General: No [...] through Thursday 8a-7p APU R2 (first call) [phone] APU R3 (chief) [phone] Evenings 7p-8am Weekend Thursday 6pm through Thursday 8am Labor R2 (first call) [phone] Labor R4 (chief) [phone] Cosigned by Byron Lakhani MD at 08/24/2024 9:37 AM MANAGER OF CLINICAL GER OF CLINICAL GER OF CLINICAL Associated attestation - Byron Lakhani MD - 08/24/2024 9:37 AM MANAGER OF CLINICAL I have seen and examined the patient [...] BP: (128-139)/(78-90) 128/84 FHR: reactive NST x2 [place]: no regular contractions Physical Exam General: No [...] through Thursday 8a-7p APU R2 (first call) [phone] APU R3 (chief) [phone] Evenings 7p-8am Weekend Thursday 6pm through Thursday 8am Labor R2 (first call) [phone] Labor R4 (chief) [phone] Cosigned by Byron Lakhani MD at 08/23/2024 9:19 AM MANAGER OF CLINICAL GER OF CLINICAL GER OF CLINICAL Associated attestation - Byron Lakhani MD - 08/23/2024 9:19 AM MANAGER OF CLINICAL I have seen and examined the patient [...] Adult Diet Regular Diet effective now Question: ([facility]) Diet type Answer: Regular 07/29/24 1220 Assessment / Impression: Met with patient at bedside. She reported good appetite and PO intake. Recommend weekly weights. RD will continue to monitor. Marge Castro MS, RD, [facility], Cell GER OF CLINICAL * Millie Pierce LCSW - 08/22/2024 10:18 [...] 09/19 SW remains available. ARACELIS Tyler, LEO [facility] Clinical Silica Filter Operator Women and Infants Units GER OF CLINICAL * Anastasia Plaza MD - 08/22/2024 7:18 [...] BP: (126-141)/(81-89) 134/89 FHR: reactive NST x2 [place]: no regular contractions Physical Exam General: No [...] through Thursday 8a-7p APU R2 (first call) [phone] APU R3 (chief) [phone] Evenings 7p-8am Weekend Thursday 6pm through Thursday 8am Labor R2 (first call) [phone] Labor R4 (chief) [phone] Cosigned by Byron Lakhani MD at 08/22/2024 9:45 AM MANAGER OF CLINICAL GER OF CLINICAL GER OF CLINICAL Associated attestation - Byron Lakhani MD - 08/22/2024 9:45 AM MANAGER OF CLINICAL I have seen and examined the patient [...] BP: (131-138)/(84-91) 131/84 FHR: reactive NST x2 [place]: no regular contractions Physical Exam General: No [...] through Thursday 8a-7p APU R2 (first call) [phone] APU R3 (chief) [phone] Evenings 7p-8am Weekend Thursday 6pm through Thursday 8am Labor R2 (first call) [phone] Labor R4 (chief) [phone] Cosigned by Libby Berman MD at 08/21/2024 9:27 AM MANAGER OF CLINICAL GER OF CLINICAL GER OF CLINICAL Associated attestation - Libby Berman MD - 08/21/2024 9:27 AM MANAGER OF CLINICAL I have seen and examined the patient [...] BP: (127-140)/(80-88) 140/88 FHR: reactive NST x2 [place]: no regular contractions Physical Exam General: No [...] through Thursday 8a-7p APU R2 (first call) [phone] APU R3 (chief) [phone] Evenings 7p-8am Weekend Thursday 6pm through Thursday 8am Labor R2 (first call) [phone] Labor R4 (chief) [phone] Cosigned by Leticia Barillas MD at 08/20/2024 7:16 AM MANAGER OF CLINICAL GER OF CLINICAL GER OF CLINICAL Associated attestation - Leticia Barillas MD - 08/20/2024 7:16 AM MANAGER OF CLINICAL I have personally seen and evaluated the [...] BP: (127-139)/(82-96) 127/82 FHR: reactive NST x2 [place]: no regular contractions Physical Exam General: No [...] through Thursday 8a-7p APU R2 (first call) [phone] APU R3 (chief) [phone] Evenings 7p-8am Weekend Thursday 6pm through Thursday 8am Labor R2 (first call) [phone] Labor R4 (chief) [phone] Cosigned by Leticia Barillas MD at 08/19/2024 9:49 AM MANAGER OF CLINICAL GER OF CLINICAL GER OF CLINICAL Associated attestation - Leticia Barillas MD - 08/19/2024 9:49 AM MANAGER OF CLINICAL I have personally seen and evaluated the [...] BP: (124-141)/(73-83) 124/81 FHR: reactive NST x2 [place]: no regular contractions Physical Exam General: No [...] through Thursday 8a-7p APU R2 (first call) [phone] APU R3 (chief) [phone] Evenings 7p-8am Weekend Thursday 6pm through Thursday 8am Labor R2 (first call) [phone] Labor R4 (chief) [phone] Cosigned by Leticia Barillas MD at 08/18/2024 5:08 PM MANAGER OF CLINICAL GER OF CLINICAL GER OF CLINICAL Associated attestation - Leticia Barillas MD - 08/18/2024 5:08 PM MANAGER OF CLINICAL I have personally seen and evaluated the [...] BP: (122-131)/(77-83) 131/77 FHR: reactive NST x2 [place]: no regular contractions Physical Exam General: No [...] through Thursday 8a-7p APU R2 (first call) [phone] APU R3 (chief) [phone] Evenings 7p-8am Weekend Thursday 6pm through Thursday 8am Labor R2 (first call) [phone] Labor R4 (chief) [phone] Cosigned by Leticia Barillas MD at 08/17/2024 8:25 AM MANAGER OF CLINICAL GER OF CLINICAL GER OF CLINICAL Associated attestation - Leticia Barillas MD - 08/17/2024 8:25 AM MANAGER OF CLINICAL I have personally seen and evaluated the [...] BP: (132-141)/(77-90) 132/78 FHR: reactive NST x2 [place]: no regular contractions Physical Exam General: No [...] through Thursday 8a-7p APU R2 (first call) [phone] APU R3 (chief) [phone] Evenings 7p-8am Weekend Thursday 6pm through Thursday 8am Labor R2 (first call) [phone] Labor R4 (chief) [phone] Cosigned by Leticia Barillas MD at 08/16/2024 9:45 AM MANAGER OF CLINICAL GER OF CLINICAL GER OF CLINICAL Associated attestation - Leticia Barillas MD - 08/16/2024 9:45 AM MANAGER OF CLINICAL I have personally seen and evaluated the [...] until delivery SW remains available. ARACELIS Tyler, REHABILITATION PHYSICIAN [facility] Clinical Silica Filter Operator Women and Infants Units GER OF CLINICAL * Anastasia Plaza MD - 08/15/2024 7:17 [...] BP: (117-137)/(69-90) 131/85 FHR: reactive NST x2 [place]: no regular contractions Physical Exam General: No [...] through Thursday 8a-7p APU R2 (first call) [phone] APU R3 (chief) [phone] Evenings 7p-8am Weekend Thursday 6pm through Thursday 8am Labor R2 (first call) [phone] Labor R4 (chief) [phone] Cosigned by Leticia Barillas MD at 08/15/2024 8:57 AM MANAGER OF CLINICAL GER OF CLINICAL GER OF CLINICAL Associated attestation - Leticia Barillas MD - 08/15/2024 8:57 AM MANAGER OF CLINICAL I have personally seen and evaluated the [...] BP: (125-130)/(76-85) 128/85 FHR: reactive NST x2 [place]: no regular contractions Physical Exam General: No [...] through Thursday 8a-7p APU R2 (first call) [phone] APU R3 (chief) [phone] Evenings 7p-8am Weekend Thursday 6pm through Thursday 8am Labor R2 (first call) [phone] Labor R4 (chief) [phone] Cosigned by Nini Knapp MD at 08/14/2024 7:19 AM MANAGER OF CLINICAL GER OF CLINICAL GER OF CLINICAL Associated attestation - Nini Knapp MD - 08/14/2024 7:19 AM MANAGER OF CLINICAL I have seen and examined the patient on 08/14/24. I agree with the findings and plan of care as documented in the resident's/fellow's note. Some new ear pain without other URI sypmtoms- will perform exam. * Nini Knapp MD - 08/13/2024 9:35 AM CST err GER OF CLINICAL * Mariela Dyson MD - 08/13/2024 7:19 [...] x2. No vaginal bleeding/leakage of fluid/contractions. Denies HARYR, vision changes, SOB, chest pain, RUQ pain, new swelling changes. Review of Systems Negative except as per above. OBJECTIVE Vitals: Temp: [36.6 ??C (97.9 ??F)-36.8 ??C (98.3 ??F)] 36.8 ??C (98.3 ??F) Pulse: [94-121] 121 Resp: [16-18] 18 BP: (121-139)/(73-85) 129/82 FHR: reactive NST x2 [place]: no regular contractions Physical Exam General: No [...] through Thursday 8a-7p APU R2 (first call) [phone] APU R3 (chief) [phone] Evenings 7p-8am Weekend Thursday 6pm through Thursday 8am Labor R2 (first call) [phone] Labor R4 (chief) [phone] Cosigned by Nini Knapp MD at 08/14/2024 7:15 AM MANAGER OF CLINICAL GER OF CLINICAL GER OF CLINICAL Associated attestation - Nini Knapp MD - 08/14/2024 7:15 AM MANAGER OF CLINICAL I have seen and examined the patient [...] BP: (123-137)/(77-89) 131/79 FHR: reactive NST x2 [place]: no regular contractions Physical Exam General: No [...] through Thursday 8a-7p APU R2 (first call) [phone] APU R3 (chief) [phone] Evenings 7p-8am Weekend Thursday 6pm through Thursday 8am Labor R2 (first call) [phone] Labor R4 (chief) [phone] Cosigned by Byron Lakhani MD at 08/12/2024 10:13 AM MANAGER OF CLINICAL GER OF CLINICAL GER OF CLINICAL Associated attestation - Kar, Byron Ayala MD - 08/12/2024 10:13 AM MANAGER OF CLINICAL I have seen and examined the patient [...] BP: (126-140)/(68-92) 140/84 FHR: reactive NST x2 [place]: no regular contractions Physical Exam General: No [...] through Thursday 8a-7p APU R2 (first call) [phone] APU R3 (chief) [phone] Evenings 7p-8am Weekend Thursday 6pm through Thursday 8am Labor R2 (first call) [phone] Labor R4 (chief) [phone] Cosigned by Byron Lakhani MD at 08/11/2024 9:19 AM MANAGER OF CLINICAL GER OF CLINICAL GER OF CLINICAL Associated attestation - Byron Lakhani MD - 08/11/2024 9:19 AM MANAGER OF CLINICAL I have seen and examined the patient [...] BP: (127-138)/(67-90) 135/71 FHR: reactive NST x2 [place]: no regular contractions Physical Exam General: No [...] stable mood this #MO -BMI 47 #FWB: #Shya TIUP - BSUS Vertex/Vertex - Genetic screening: [...] through Thursday 8a-7p APU R2 (first call) [phone] APU R3 (chief) [phone] Evenings 7p-8am Weekend Thursday 6pm through Thursday 8am Labor R2 (first call) [phone] Labor R4 (chief) [phone] Cosigned by Byron Lakhani MD at 08/10/2024 8:54 AM MANAGER OF CLINICAL GER OF CLINICAL GER OF CLINICAL Associated attestation - Byron Lakhani MD - 08/10/2024 8:54 AM MANAGER OF CLINICAL I have seen and examined the patient [...] BP: (123-146)/(77-90) 128/79 FHR: reactive NST x2 [place]: no regular contractions Physical Exam General: No [...] through Thursday 8a-7p APU R2 (first call) [phone] APU R3 (chief) [phone] Evenings 7p-8am Weekend Thursday 6pm through Thursday 8am Labor R2 (first call) [phone] Labor R4 (chief) [phone] Cosigned by Byron Lakhani MD at 08/09/2024 10:16 AM MANAGER OF CLINICAL GER OF CLINICAL GER OF CLINICAL GER OF CLINICAL Associated attestation - Byron Lakhani MD - 08/09/2024 10:16 AM MANAGER OF CLINICAL I have seen and examined the patient on 08/09/24. I agree with the findings and plan of care as documented in the resident's/fellow's note.. * Carola Murphy - 08/08/2024 2:43 PM CST Chaplain Carola Murphy [facility] Spiritual Care Triage: [phone] 08/08/24 1400 Time Spent Start Time 1410 Stop Time 1420 Time Calculation (min) 10 min Patient Spiritual Assessment Spirituality Assessed Focus of Care Clinical Encounter Type Visited With Patient Response Type Routine visit Routine Visit Introduction Reason for visit Support Outcomes and Progress Demonstrating care and respect Achieved Interventions Interventions Offer emotional support;Offer spiritual/sabianism support GER OF CLINICAL * Millie Pierce LCSW - 08/08/2024 11:43 [...] needs. SW remains available. ARACELIS Tyler, LEO [facility] Clinical Silica Filter Operator Women and Infants Units GER OF CLINICAL * Maureen Calix MD - 08/08/2024 6:36 [...] BP: (133-149)/(74-91) 134/74 FHR: reactive NST x2 [place]: no regular contractions Physical Exam General: No [...] Byron Lakhani MD at 08/08/2024 9:57 AM MANAGER OF CLINICAL GER OF CLINICAL GER OF CLINICAL Associated attestation - Byron Lakhani MD - 08/08/2024 9:57 AM MANAGER OF CLINICAL I have seen and examined the patient on 08/08/24. I agree with the findings and plan of care as documented in the resident's/fellow's note.. 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 wharf labourer availability) * Mariela Dyson MD - 08/07/2024 [...] BP: (129-142)/(77-82) 129/78 FHR: reactive NST x2 [place]: no regular contractions Physical Exam General: No [...] Eve Jenkins MD at 08/07/2024 7:23 AM MANAGER OF CLINICAL GER OF CLINICAL GER OF CLINICAL Associated attestation - Eve Jenkins MD - 08/07/2024 7:23 AM MANAGER OF CLINICAL Attending Attestation I have seen, examined, and [...] BP: (115-138)/(67-90) 115/67 FHR: reactive NST x2 [place]: no regular contractions Physical Exam General: No [...] Adult Diet Regular Diet effective now Question: ([facility]) Diet type Answer: Regular 07/29/24 1220 Assessment / Impression: Met with patient at bedside. She reported good appetite and PO intake. Shereports pre- weight of 260#. Currently 284# as of 08/04. She is tolerating PNV. No nutrition needs identified at this time. RD will continue to monitor. Marge Castro MS, RD, [facility], Cell * Marge Conrad DO - 08/05/2024 [...] future transfusions. Contact Information: Please contact the [facility] Transfusion Medicine Service at (option 1) with [...] bank report. Pam Lr MD PhD * [facility] - 08/05/2024 7:17 [...] BP: (132-144)/(77-94) 132/78 FHR: reactive NST x2 [place]: no regular contractions Physical Exam General: No [...] EKG/Min 110 BPM Atrial Rate 110 BPM NM-Interval (MSEC) 122 ms QRS-Interval (MSEC) 78 ms QT-Interval (MSEC) 334 ms QTc 452 ms P [place] 52 degrees R [place] 5 degrees T [place] 25 degrees Diagnosis Sinus tachycardia Otherwise normal [...] on nifedipine 90mg qD. Jessica Naranjo MD [place] Division of Maternal- Medicine and Ultrasound Department of Obstetrics and Gynecology [facility] 08/05/2024 * Sue Meza MD - 08/04/2024 [...] BP: (122-139)/(72-85) 128/76 FHR: reactive NST x2 [place]: no regular contractions Physical Exam General: No [...] complete anatomic survey with particular focus on [employer] anatomy of twin A today. Jessica Naranjo MD [place] Division of Maternal- Medicine and Ultrasound Department of Obstetrics and Gynecology [facility] 08/04/2024 * Maureen Calix MD - [...] BP: (128-143)/(77-98) 137/84 FHR: reactive NST x2 [place]: no regular contractions Physical Exam General: No [...] XL 90 mg qD. Jessica Naranjo MD [place] Division of Maternal- Medicine and Ultrasound Department of Obstetrics and Gynecology [facility] 08/03/2024 * Maureen Calix MD - [...] BP: (128-143)/(73-89) 128/84 FHR: reactive NST x2 [place]: no regular contractions Physical Exam General: No [...] for MCDA twin . Jessica Naranjo MD [place] Division of Maternal- Medicine and Ultrasound Department of Obstetrics and Gynecology [facility] 08/02/2024 * Millie Pierce, REHABILITATION PHYSICIAN - 08/01/2024 12:34 PM CDT Reason for [...] delivery. SW remains available. ARACELIS Tyler, LEO [facility] Clinical Silica Filter Operator Women and Infants Units * Maureen [...] x2 rare age appropriate variables, limited discontinuity [place]: no regular contractions Physical Exam General: No [...] Attending Attestation I have seen and discussed Skui Leon with the CARLI/resident/fellow on 08/01/2024. I [...] of a preeclampsia headache. Jessica Naranjo MD [place] Division of Maternal- Medicine and Ultrasound Department of Obstetrics and Gynecology [facility] 08/01/2024 * Maureen Calix [...] variables with 1 hour reassuring monitoring afterwards [place]: no regular contractions Physical Exam General: No [...] normotensive to mild range on arrival to [facility] since transfer - Will give APAP + [...] stopped Mag due to stable BPs, started [id number] - normotensive to infrequent MR BPs SUBJECTIVE [...] BMI 47.26 kg/m?? FHR: reactive NST x2 [place]: no regular contractions Physical Exam General: No [...] normotensive to mild range on arrival to [facility] since transfer - Will give APAP + [...] x1 prior to transfer. On arrival to [facility] patient reports headache/ blurred vision is markedly improved. Denies RUQ pain, n/v, CTX, VB, LOF. Patient has received consistent care from [facility] Antepartum History: Her has been complicated by Shay twins, new preeclampsia with SF, Rh neg, MO, VZV NI, anxiety/dep. 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 Nexplanon placed without complication per applications system analyst's guidelines in the left upper arm. Bandaid placed with pressure dressing. Provider palpated Nexplanon device in place. Patient was able to palpate Nexplanon device. Impression and Plan: -Nexplanon placed without complication. Abigail Alberto MD 09/20/2024 Expiration 07/2026 Lot number [id number] GER OF CLINICAL * Francisca Yun MD - 09/18/2024 12:45 PM CST 29 y.o. at 33w6d Time on monitor: 2948-4292 Fetus A FHR Baseline: 120 Variability: moderate [...] Sandra Christy MD at 09/19/2024 3:20 PM MANAGER OF CLINICAL GER OF CLINICAL GER OF CLINICAL GER OF CLINICAL * Joellen Schilling MD - 09/17/2024 2:58 PM CSTAssociated Order(s): nonstress test Pre-Procedure Diagnose(s): Preeclampsia, unspecified trimester; 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 Post-Procedure Diagnose(s): Preeclampsia, unspecified trimester; 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 nonstress test Date/Time: 09/17/2024 2:58 PM Performed by: Maureen Calix MD Authorized by: Ana M Rogers MD 29 y.o. at 33w5d Time on monitor: [id number] Fetus A FHR Baseline: 125 Variability: moderate [...] Sandra Christy MD at 09/18/2024 9:19 AM MANAGER OF CLINICAL GER OF CLINICAL GER OF CLINICAL GER OF CLINICAL * Joellen Schilling MD - 09/16/2024 2:44 [...] Sandra Christy MD at 09/16/2024 2:51 PM MANAGER OF CLINICAL GER OF CLINICAL GER OF CLINICAL Associated attestation - Sandra Christy MD - 09/16/2024 2:51 PM MANAGER OF CLINICAL I have reviewed the tracing and the interpretation. I agree with the findings. Sandra Christy MD [place] Maternal- Medicine * Joellen Schilling MD - [...] NST Joellen Schilling MD Maternal- Medicine Fellow GER OF CLINICAL * Anastasia Plaza MD - 09/14/2024 5:08 [...] Sandra Christy MD at 09/14/2024 7:29 PM MANAGER OF CLINICAL GER OF CLINICAL GER OF CLINICAL Associated attestation - Sandra Christy MD - 09/14/2024 7:29 PM MANAGER OF CLINICAL I have reviewed the tracing and the interpretation. I agree with the findings. Sandra Christy MD MS Maternal- Medicine * Avery Veloz MD - 09/13/2024 5:13 PM CST Procedures NST Progress Note 29 y.o. at 33w1d admitted for PreEwSF Time on monitor: 0360-0650 Twin A: FHR Baseline: 125bpm Variability: moderate [...] Sandra Christy MD at 09/14/2024 7:28 PM MANAGER OF CLINICAL GER OF CLINICAL GER OF CLINICAL GER OF CLINICAL * Anastasia Plaza MD - 09/13/2024 5:10 [...] Sandra Christy MD at 09/14/2024 7:28 PM MANAGER OF CLINICAL GER OF CLINICAL GER OF CLINICAL Associated attestdelmar - Sandra Christy MD - 09/14/2024 7:28 PM MANAGER OF CLINICAL I have reviewed the tracing and the interpretation. I agree with the findings. Sandra Christy MD MS Maternal- Medicine * Rey Qiunonez MD - 09/12/2024 4:51 PM CST Procedures NST Progress Note 29 y.o. at 33w0d admitted for PreEwSF Time on monitor: 5601-5677 Twin A: FHR Baseline: 125 Variability: moderate Accelerations: present Decelerations: none Twin B: FHR Baseline: 130 Variability: moderate Accelerations: present Decelerations: none Contractions: absent Reactive: Yes Comments: reactive and reassuring Instructed RN that patient can be taken off the monitor. Rey Quinonez MD Cosigned by Sandra Christy MD at 09/13/2024 5:07 PM MANAGER OF CLINICAL GER OF CLINICAL GER OF CLINICAL Associated atttoma - Sandra Christy MD - 09/13/2024 5:07 PM MANAGER OF CLINICAL I have reviewed the tracing and the interpretation. I agree with the findings. Sandra Christy MD MS Maternal- Medicine * Judi Huang MD - 09/11/2024 2:39 PM CST Procedures 29 y.o. at 32w6d Time on monitor: 2428-8974 Fetus A FHR Baseline: 125 Variability: moderate Reactive: Yes Decelerations: none Fetus B FHR Baseline: 135 Variability: moderate Reactive: Yes Decelerations: none Contractions: absent Comments: reactive and reassuring I have reviewed NST and instructed RN to take off monitor Judi Huang MD Cosigned by Sara Eng MD at 09/11/2024 4:07 PM MANAGER OF CLINICAL GER OF CLINICAL GER OF CLINICAL Associated attestation - Sara Eng MD - 09/11/2024 4:07 PM MANAGER OF CLINICAL Attending Attestation - nonstress test I have reviewed the NST of Suki Leon myself. I agree with the interpretation as documented in the resident???s note. Sara Eng MD 09/11/2024 * Mariela Dyson MD - 09/10/2024 2:42 PM CST Procedures 29 y.o. at 32w5d Time on monitor: 4410-0259 Fetus A FHR Baseline: 120 Variability: moderate Reactive: Yes Decelerations: none Fetus B FHR Baseline: 130 Variability: moderate Reactive: Yes Decelerations: none Contractions: absent Comments: reactive and reassuring I have reviewed NST and instructed RN to take off monitor Mariela Voss MD Cosigned by Nini Cortez MD at 09/10/2024 3:14 PM MANAGER OF CLINICAL GER OF CLINICAL GER OF CLINICAL Associated attestation - Nini Cortez MD - 09/10/2024 3:14 PM MANAGER OF CLINICAL I have independently reviewed the NSTx2 and agree with the documentation. Nini Cortez MD 09/10/2024 * Sara Eng MD - 09/09/2024 1:33 PM CST Procedures Electronic Monitoring/Non-Stress Test Date: 09/09/2024 Time: 8553-9881 Suki Leon is a 29 y.o. female [...] the resident???s note. Sara Eng MD 09/09/2024 GER OF CLINICAL * Sara Eng MD - 09/08/2024 2:22 PM CST Electronic Monitoring/Non-Stress Test Date: 09/08/2024 Time: 4085-7545 Suki Leon is a 29 y.o. female [...] the resident???s note. Sara Eng MD 09/08/2024 GER OF CLINICAL * Sara Eng MD - 09/08/2024 1:39 PM CST Procedures Electronic Monitoring/Non-Stress Test Date: 09/08/2024 Time: 5201-4651 Suki Leon is a 29 y.o. female [...] RN to take off monitor CORBY Ashton GER OF CLINICAL GER OF CLINICAL * Sara Eng MD - 09/08/2024 12:09 [...] the resident???s note. Sara Eng MD 09/08/2024 GER OF CLINICAL * Millicent Duran NP - 09/07/2024 12:17 PM CST Procedures Electronic Monitoring/Non-Stress Test Date: 09/07/2024 Time: 5027-5730 Suki Leon is a 29 y.o. female [...] Sara Eng MD at 09/08/2024 12:09 PM MANAGER OF CLINICAL GER OF CLINICAL GER OF CLINICAL * Pauline Simms MD - 09/06/2024 8:38 PM CSTAssociated Order(s): NONSTRESS TEST Baby A FHR Baseline: 125 Variability: moderate Accelerations: absent Decelerations: absent in last part of tracing, was initially having small variable decels in monitoring Reactive: Yes Baby B FHR Baseline: 130 Variability: moderate Accelerations: present Decelerations: absent Reactive: Yes 29 y.o. at 32w1d a/f preeclampsia with SF On monitor 2631-5994 Contractions: absent I have reviewed NST and instructed RN to take off monitor Pauline Simms MD Cosigned by Anastasia Amaro MD at 09/07/2024 7:29 AM MANAGER OF CLINICAL GER OF CLINICAL GER OF CLINICAL Associated attestation - Anastasia Amaro MD - 09/07/2024 7:29 AM MANAGER OF CLINICAL Attending Attestation - nonstress test I have reviewed the NST of Suki Leon myself. I agree with the interpretation as documented in the resident???s note. Anastasia Amaro MD 09/07/2024 * Sara Eng MD - 09/05/2024 4:21 PM CST Procedures NONSTRESS TEST Suki Leon is a 29 y.o. here today at 32.0 weeks gestation in the setting of preeclampsia. Time Monitored: 2677-3811 FHR Baseline: A: 135 B:135 Variability: A: mod B: mod Accelerations: A: present B: present Decelerations: A: absent B: absent Contractions: Pt reports feeling no UC; rare UC noted by toco; abdomen soft to palpation Reactive: Yes MFM Fellow Attestation I have reviewed the tracing and agree with the interpretation as above. NST reactive and reassuring. Sara Eng MD GER OF CLINICAL * Sara Eng MD - 09/05/2024 3:53 PM CST Procedures NONSTRESS TEST Suki Leon is a 29 y.o. here today at 32.0 weeks gestation in the setting of preeclampsia. Time Monitored: 7336-5739 FHR Baseline: A: 135 B:135 Variability: A: mod B: mod Accelerations: A: present B: present Decelerations: A: absent B: absent Contractions: Pt reports feeling no UC; rare UC noted by toco; abdomen soft to palpation Reactive: Yes I have reviewed the NST. Tash Mathew CNM GER OF CLINICAL GER OF CLINICAL * Joellen Julio MD - 09/04/2024 12:14 [...] and reassuring NSTs x2. Joellen Julio MD GER OF CLINICAL GER OF CLINICAL * Joellen Schilling MD - 09/03/2024 11:34 AM CST 29 y.o. at 31w5d Time on monitor: 8459-3472 Fetus A FHR Baseline: 120 Variability: moderate [...] Josefina Peter MD at 09/09/2024 1:38 AM MANAGER OF CLINICAL GER OF CLINICAL GER OF CLINICAL GER OF CLINICAL * Joellen Julio MD - 09/02/2024 10:59 [...] Reactive and reassuring x2. Joellen Julio MD GER OF CLINICAL GER OF CLINICAL * Joellen Schilling MD - 09/01/2024 4:00 [...] Jessica Naranjo MD at 09/02/2024 9:09 AM MANAGER OF CLINICAL GER OF CLINICAL GER OF CLINICAL Associated attestation - Jessica Naranjo MD - 09/02/2024 9:09 AM MANAGER OF CLINICAL Images from the original note were not included. MFM Attending Attestation I independently evaluated the twin NST for Suki Leon performed on 09/01/24 as documented by the fellow. I agree with the documentation. Reactive and reassuring NST for twins. Jessica Naranjo MD [facility] Division of Maternal- Medicine and Ultrasound Department of Obstetrics and Gynecology [facility] [employer] [facility] [employer] * Aanstasia Plaza MD - 08/31/2024 1:32 PM CST Procedures 29 y.o. at 31w2d a/f preeclampsia with SF A FHR Baseline: 130 Variability: moderate Reactive: Yes B FHR Baseline: 135 Variability: moderate Reactive: Yes Contractions: absent Comments: 12:32-13:02 I have reviewed NST and instructed RN to take off monitor Anastasia Plaza MD Cosigned by Nini Cortez MD at 08/31/2024 3:10 PM MANAGER OF CLINICAL GER OF CLINICAL GER OF CLINICAL Associated attestation - Nini Cortez MD - 08/31/2024 3:10 PM MANAGER OF CLINICAL I have independently reviewed the NSTx2 and agree with the documentation. Nini Cortez MD 08/31/2024 * Maureen Calix MD - 08/30/2024 2:48 PM CST Procedures 29 y.o. at 31w1d a/f preeclampsia with SF. Also with Shay twins Time on monitor: 3664-2619 Fetus A FHR Baseline: 135 Variability: moderate [...] Nini Cortez MD at 08/30/2024 4:16 PM MANAGER OF CLINICAL GER OF CLINICAL GER OF CLINICAL GER OF CLINICAL Associated attestation - Nini Cortez MD - 08/30/2024 4:16 PM MANAGER OF CLINICAL I have independently reviewed the NSTx2 and [...] SF and Shay twins Time on monitor: 3045-0924 Fetus A FHR Baseline: 130 Variability: moderate Reactive: Yes Decelerations: none Fetus B FHR Baseline: 135 Variability: moderate Reactive: Yes Decelerations: none Contractions: absent Comments: reactive and reassuring NST I have reviewed NST and instructed RN to take off monitor Nadiya Calix MD PhD Obstetrics & Gynecology - PGY 2 08/29/2024 Cosigned by Nini Cortez MD at 08/29/2024 9:00 PM MANAGER OF CLINICAL GER OF CLINICAL GER OF CLINICAL Associated attestation - Nini Cortez MD - 08/29/2024 9:00 PM MANAGER OF CLINICAL I have independently reviewed the NSTx2 and [...] Nini Cortez MD at 08/29/2024 10:17 AM MANAGER OF CLINICAL GER OF CLINICAL GER OF CLINICAL Associated attestation - Nini Cortez MD - 08/29/2024 10:17 AM MANAGER OF CLINICAL I have independently reviewed the NSTx2 and agree with the documentation. Nini Cortez MD 08/29/2024 * Natalie Botello MD - 08/27/2024 2:15 PM CST Procedures 29 y.o. at 30w5d who is admitted for PreEwSF. Time on monitor: 6405-5851 Fetus A FHR Baseline: 125>135 Variability: moderate [...] Kaela Mcallister MD at 08/28/2024 6:56 AM MANAGER OF CLINICAL GER OF CLINICAL GER OF CLINICAL GER OF CLINICAL * Millicent Duran NP - 08/26/2024 11:13 AM CST Procedures Electronic Monitoring/Non-Stress Test Date: 08/26/2024 Time: 8034-6523 Suki Leon is a 29 y.o. female [...] Byron Lakhani MD at 08/26/2024 1:02 PM MANAGER OF CLINICAL GER OF CLINICAL GER OF CLINICAL * Millicent Duran NP - 08/25/2024 12:56 PM CST Procedures Electronic Monitoring/Non-Stress Test Date: 08/25/2024 Time: 2895-1137 Suki Leon is a 29 y.o. female [...] Byron Lakhani MD at 08/25/2024 1:43 PM MANAGER OF CLINICAL GER OF CLINICAL GER OF CLINICAL * Millicent Duran NP - 08/24/2024 12:31 PM CST Procedures Electronic Monitoring/Non-Stress Test Date: 08/24/2024 Time: 4085-0429 Suki Leon is a 29 y.o. female [...] Byron Lakhani MD at 08/24/2024 2:17 PM MANAGER OF CLINICAL GER OF CLINICAL GER OF CLINICAL * Millicent Duran NP - 08/23/2024 4:48 PM CST Procedures Electronic Monitoring/Non-Stress Test Date: 08/23/2024 Time: 2474-6271 Suki Leon is a 29 y.o. female [...] Byron Lakhani MD at 08/23/2024 6:03 PM MANAGER OF CLINICAL GER OF CLINICAL GER OF CLINICAL * Christiano Mathew CNM - 08/22/2024 3:25 PM CST Procedures NONSTRESS TEST Suki Leon is a 29 y.o. here today at 30.0 weeks gestation in the setting of preeclampsia with severe features and MCDA . Time Monitored: 1617-5993 FHR Baseline: A: 130 B: 135 Variability: A: mod B: mod Accelerations: A: present B: present Decelerations: A: absent B: absent Contractions: none noted on toco Reactive: Yes I have reviewed the NST. Tash Mathew CNM Cosigned by Byron Lakhani MD at 08/22/2024 4:04 PM MANAGER OF CLINICAL GER OF CLINICAL GER OF CLINICAL * Meena Khalil MD - 08/21/2024 11:40 AM CST 29 y.o. at 29w6d Time on monitor: 2812-6105 Fetus A FHR Baseline: 120 Variability: moderate Reactive: Yes Decelerations: none Fetus B FHR Baseline: 130 Variability: moderate Reactive: Yes Decelerations: none Contractions: absent Comments: Reactive NST with small areas of discontinuity, overall reassuring I have reviewed NST and instructed RN to take off monitor Meena Khalil MD PGY-2 Obstetrics & Gynecology Cosigned by Libby Berman MD at 08/21/2024 12:33 PM MANAGER OF CLINICAL GER OF CLINICAL GER OF CLINICAL Associated attestation - Libby Berman MD - 08/21/2024 12:33 PM MANAGER OF CLINICAL I have reviewed the NST and agree [...] negative workup thus far, patient asymptomatic on feather trimmer I have reviewed NST and instructed RN to take off monitor. Nini Skinner MD MFM Fellow Attestation 3:29 PM 08/20/2024 I have reviewed and agree with the above documentation and interpretation of the tracing. Reactive and reassuring tracing x 2. Sue Meza MD, MPH Cosigned by Leticia Barillas MD at 08/24/2024 2:26 PM MANAGER OF CLINICAL GER OF CLINICAL GER OF CLINICAL GER OF CLINICAL * Anastasia Plaza MD - 08/19/2024 4:36 PM CST 29 y.o. at 29w4d a/f preeclampsia with SF Procedures FHR Baseline: 125 Variability: moderate Reactive: Yes FHR Baseline: 125 Variability: moderate Reactive: Yes Contractions: absent Comments: 16:16-16:36 I have reviewed NST and instructed RN to take off monitor Anastasia Plaza MD Cosigned by Leticia Barillas MD at 08/19/2024 5:07 PM MANAGER OF CLINICAL GER OF CLINICAL GER OF CLINICAL Associated attestation - Leticia Barillas MD - 08/19/2024 5:07 PM MANAGER OF CLINICAL I have reviewed the NST for Twin 1 and 2 and agree with the documentation provided by the resident. Leticia Barillas MD * Avery Veloz MD - 08/18/2024 5:23 PM CST Procedures 29 y.o. at 29w3d Time on monitor: 0928-6793 Fetus A FHR Baseline: 130 Variability: moderate [...] Leticia Barillas MD at 08/19/2024 5:08 PM MANAGER OF CLINICAL GER OF CLINICAL GER OF CLINICAL GER OF CLINICAL * Millicent Duran NP - 08/17/2024 4:18 PM CST Procedures Electronic Monitoring/Non-Stress Test Date: 08/17/2024 Time: 4023-1239 Suki Leon is a 29 y.o. female [...] Leticia Barillas MD at 08/17/2024 4:57 PM MANAGER OF CLINICAL GER OF CLINICAL GER OF CLINICAL Associated attestation - Leticia Barillas MD - 08/17/2024 4:57 PM MANAGER OF CLINICAL FHR Baseline: 130/130 Variability: moderate x 2 Accelerations: present x2 Decelerations: absent Contractions: absent Reactive: Yes x 2 I have reviewed the NST for Twin 1 and 2 and both reactive. Leticia Barillas MD * Millicent Duran NP - 08/16/2024 4:23 PM CST Procedures Electronic Monitoring/Non-Stress Test Date: 08/16/24 Time: 9513-5535 Suki Leon is a 29 y.o. female [...] Leticia Barillas MD at 08/17/2024 12:25 PM MANAGER OF CLINICAL GER OF CLINICAL GER OF CLINICAL * Millicent Duran NP - 08/15/2024 2:41 PM CST Procedures Electronic Monitoring/Non-Stress Test Date: 08/15/2024 Time: 5934-1007 Suki Leon is a 29 y.o. female [...] Leticia Barillas MD at 08/17/2024 12:25 PM MANAGER OF CLINICAL GER OF CLINICAL GER OF CLINICAL * Gisell Cunningham MD - 08/14/2024 12:08 PM CST Procedures NST Time: 1132-1965 Twin A FHR Baseline: 125 Variability: moderate Accels: Present x2 Decels: None Reactive: Yes Twin B FHR Baseline: 135 Variability: moderate Accels: Present Decels: None Reactive: Yes Contractions: absent Comments: Reactive and reassuring NST I have reviewed NST and instructed RN to take off monitor Gisell Cunningham MD [facility] Fellow Cosigned by Byron Lakhani MD at 08/15/2024 7:29 AM MANAGER OF CLINICAL GER OF CLINICAL GER OF CLINICAL * Selena Brooke MD - 08/13/2024 2:36 PM CST 29 y.o. female at 28w5d gestation admitted for preEwSF, Shay NST Time: 20 minutes 8776-9217 Twin A FHR Baseline: 135 Variability: moderate Decelerations: absent Reactive: Yes, 10x10 bpm Contractions: absent Comments: reactive and reassuring Twin B FHR Baseline: 135 > 140 Variability: moderate Decelerations: absent Reactive: Yes, 10x10 bpm Contractions: absent Comments: reactive and reassuring I have reviewed NST and instructed RN to take off monitor Selena Brooke MD Cosigned by Nini Knapp MD at 08/13/2024 2:46 PM MANAGER OF CLINICAL GER OF CLINICAL GER OF CLINICAL Associated attestation - Nini Knapp MD - 08/13/2024 2:46 PM MANAGER OF CLINICAL I have reviewed the NST and agree with the documentation provided by the resident/ARC [employer]. Nini Knapp MD * Millicent Duran NP - 08/12/2024 3:55 PM CST Procedures Electronic Monitoring/Non-Stress Test Date: 08/12/24 Time: 1282-2054 Suki Leon is a 29 y.o. female [...] Byron Lakhani MD at 08/12/2024 3:58 PM MANAGER OF CLINICAL GER OF CLINICAL GER OF CLINICAL * Millicent Duran NP - 08/11/2024 2:43 PM CST Procedures Electronic Monitoring/Non-Stress Test Date: 08/11/24 Time: 3409-4432 Suki Leon is a 29 y.o. female [...] Byron Lakhani MD at 08/11/2024 2:53 PM MANAGER OF CLINICAL GER OF CLINICAL GER OF CLINICAL * Millicent Duran NP - 08/10/2024 11:15 AM CST Procedures Electronic Monitoring/Non-Stress Test Date: 08/10/24 Time: 8508-1612 Suki Leon is a 29 y.o. female [...] Byron Lakhani MD at 08/10/2024 11:22 AM MANAGER OF CLINICAL GER OF CLINICAL GER OF CLINICAL * Mariela Dyson MD - 08/09/2024 10:27 AM CST Procedures 29 y.o. at 28w1d Time on monitor: 6830-8931 Fetus A FHR Baseline: 125 Variability: moderate Reactive: Yes Decelerations: none Fetus B FHR Baseline: 135 Variability: moderate Reactive: Yes Decelerations: none Contractions: absent Comments: reactive and reassuring x2 I have reviewed NST and instructed RN to take off monitor Mariela Voss MD Cosigned by Byron Lakhani MD at 08/09/2024 4:39 PM MANAGER OF CLINICAL GER OF CLINICAL GER OF CLINICAL Associated attestation - Byron Lakhani MD - 08/09/2024 4:39 PM MANAGER OF CLINICAL I have reviewed and agree with NST [...] Byron Lakhani MD at 08/08/2024 10:35 AM MANAGER OF CLINICAL GER OF CLINICAL GER OF CLINICAL Associated attestation - Byron Lakhani MD - 08/08/2024 10:35 AM MANAGER OF CLINICAL I have reviewed and agree with NST [...] Byron Lakhani MD at 08/08/2024 6:54 AM MANAGER OF CLINICAL GER OF CLINICAL GER OF CLINICAL GER OF CLINICAL * Sue Rodriguez MD - 08/06/2024 1:39 [...] included. Procedures Date: 08/05/2024 Time on monitor: 8779-8092 Twin A: Baseline: 120 bpm Variability: Moderate Accelerations: Present Decelerations: Absent Twin B: Baseline: 140 bpm Variability: Moderate Accelerations: Present Decelerations: Absent Contractions: Absent Interpretation: Reactive and reassuring NST x 2 for twin . Jessica Naranjo MD [facility] Division of Maternal- Medicine and Ultrasound Department of Obstetrics and Gynecology [facility] 08/05/2024 * Christiano Mathew CNM - 08/05/2024 3:28 PM CDT Procedures NONSTRESS TEST Suki Leon is a 29 y.o. here today at 27.4 weeks gestation in the setting of preeclampsia. Time: 9873-5351 FHR Baseline: A: 125 B: 145 Variability: [...] documentation for my interpretation. Jessica Naranjo MD [facility] Division of Maternal- Medicine and Ultrasound Department of Obstetrics and Gynecology [facility] 08/05/2024 * Jessica Naranjo MD - 08/04/2024 4:38 PM CDT Images from the original note were not included. Procedures Date: 08/04/2024 Time on monitor: 7631-5010 Twin 1: Baseline: 135 bpm Variability: Moderate Accelerations: Present Decelerations: Absent Twin 2: Baseline: 140 bpm Variability: Moderate Accelerations: Present Decelerations: Absent Contractions: None Interpretation: Reactive and reassuring NST for both twins. Patient is appropriate to take off the monitor at this time. This note is delayed due to patient care. Jessica Naranjo MD [facility] Division of Maternal- Medicine and Ultrasound Department of Obstetrics and Gynecology [facility] 08/04/2024 * Millicent Duran NP - 08/04/2024 12:26 PM CDT Procedures Electronic Monitoring/Non-Stress Test Date: 08/04/24 Time: 4617-9214 Suki Leon is a 29 y.o. female [...] NST for both twins. Jessica Naranjo MD [facility] Division of Maternal- Medicine and Ultrasound Department of Obstetrics and Gynecology [facility] 08/04/2024 * Joellen Julio MD - 08/03/2024 5:21 PM CDT Procedures 29 y.o. at 27w2d Time on monitor: 2592-0230 Fetus A FHR Baseline: 130 Variability: moderate [...] NST for both twins. Jessica Naranjo MD [facility] Division of Maternal- Medicine and Ultrasound Department of Obstetrics and Gynecology [facility] * Jessica Naranjo MD - 08/02/2024 12:31 PM CDT Images from the original note were not included. Procedures Date: 08/02/2024 Time on monitor: 7676-8274 Twin A Baseline: 130 bpm Variability: Moderate Accelerations: Present Decelerations: Absent Twin B Baseline: 135 bpm Variability: Moderate Accelerations: Present Decelerations: Absent Contractions: Absent Interpretation: Reactive and reassuring NST of both twins. Jessica Naranjo MD [facility] Division of Maternal- Medicine and Ultrasound Department of Obstetrics and Gynecology [facility] 08/04/2024 * Millicent Duran NP - 08/02/2024 10:23 AM CDT Procedures Electronic Monitoring/Non-Stress Test Date: 08/02/24 Time: 3456-3134 Suki Leon is a 29 y.o. female [...] NST for both twins. Jessica Naranjo MD [facility] Division of Maternal- Medicine and Ultrasound Department of Obstetrics and Gynecology [facility] 08/02/2024 * Millicent Duran NP - 08/01/2024 12:04 PM CDT Procedures Electronic Monitoring/Non-Stress Test Date: 08/01/24 Time: 0059-4076 Suki Leon is a 29 y.o. female [...] for twin pregnancyat 27w0d. Jessica Naranjo MD [facility] Division of Maternal- Medicine and Ultrasound Department of Obstetrics and Gynecology [facility] 08/01/2024 * Sue Meza MD - 07/31/2024 12:41 PM CDT Procedures NST Progress Note 29 y.o. at 26w6d admitted for PreEwSF Time on monitor: 4510-3974 Twin A: FHR Baseline: 130 bpm Variability: [...] Reactive and reassuring NST. Jessica Naranjo MD [facility] Division of Maternal- Medicine and Ultrasound Department of Obstetrics and Gynecology [facility] 08/01/2024 * Francisca Yun MD - 07/30/2024 1:52 PM CDT 29 y.o. at 26w5d Time on monitor: 5005-5313 Fetus A FHR Baseline: 135 Variability: moderate [...] agree with the documentation provided by the resident/[employer]. Nini Knapp MD * Mariela Dyson MD - 07/29/2024 11:44 AM CDT Procedures 29 y.o. at 26w4d Time on monitor: 7664-5759, prolonged monitoring Fetus A FHR Baseline: within [...] with the documentation provided. Tash Yeh MD [facility] Division of Maternal- Medicine documented in this encounter Consult Notes * Zaheer Foreman MD - 08/10/2024 9:50 AM CSTAssociated Order(s): IP CONSULT TO NEONATOLOGY Neonatology Consult Requesting Service: OB Requesting Provider: Anastasia Amaor MD Reason for Consult: PreE with SF [...] appropriate questions. She has not chosen a congressional district aide. Consultation Details/Neonatology Counseling: Suki Leon is a [...] 05/20/2024 LABRPR Nonreactive 07/29/2024 RUBELIGG Reactive 05/20/2024 [id number] Nonreactive 07/29/2024 Other: VZV equiv We discussed [...] acuity or blindness. The pediatric ophthalmologists are [facility] will monitor the boys at regular [...] Carrol Acosta MD at 08/10/2024 1:16 PM MANAGER OF CLINICAL GER OF CLINICAL GER OF CLINICAL Associated attestation - Carrol Acosta MD - 08/10/2024 1:16 PM MANAGER OF CLINICAL OB INPATIENT Consult Attestation: I have reviewed [...] Carrol Acosta MD 08/10/2024 1:16 PM Attending Operations Specialists * Macie Vickers MD - 08/03/2024 10:33 AM CDTAssociated Order(s): IP CONSULT TO PEDIATRIC CARDIOLOGY CARDIOLOGY CONSULTATION RE: Suki Leon : 1995 I had the pleasure of seeing Ms. Suki Leon in initial cardiac consultation at [facility]. Suki is a 29 y.o. female referred today for echocardiogram due to concern for possible aortic dilation. This is a mono-di . OSH ultrasound reported aortic dilation on fetus 1 designated on maternal left per US report. JERONIMO is 10/31/24, making the gestational age approximately 27+2 weeks at the time of this evaluation.She will be delivering at [facility]. She reports she is carrying a male fetuses. She is currently admitted at [facility] for pre-E with severe features. There [...] 90 mg at 08/03/24 08 PNV with [id number] tablet 1 tablet, 1 tablet/capsule, oral, Daily, [...] Conv) Cancer Neg Hx no colon or production support manager cmt 04/15/24 There is no known congenital heart disease, defects, or genetic syndromes. Social History Suki is to Florentino Leon, 31. She lives in [place], [place]. 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 She denies tobacco, alcohol, or illicit drug [...] opportunity of consultation. Please contact me at [phone] with questions or concerns regarding these findings [...] replied YES. Pt stated understanding of education. GER OF CLINICAL * Heather Abel RN - 08/12/2024 9:09 [...] medications. Patient insisted on swallowing the tablet. GER OF CLINICAL documented in this encounter Miscellaneous Notes * [...] Alternate activity with rest; Prepare for discharge Assembly Person Patient Centered Goal for Treatment: Safe dc home Summary: Pt adequate for discharge. GER OF CLINICAL * Plan of Care - Soumya Teixeira RN - 09/22/2024 5:26 AM MANAGER OF CLINICAL Problem: General Patient Education Goal: Knowledge of [...] VS WNL, adequate pain control, adequate rest Custodial Patient Centered Goal for Treatment: Safe dc home Summary: Patient is adequately progressing towards care plan goals. GER OF CLINICAL * Note - Nini Borges RN - [...] an electric pump, Demonstrated how to use moapa breast pump when collecting colostrum, Demonstrated settings for moapa pump ( Lactognesis II), Mother return demonstration [...] for concerns when here visiting the Baby WAC Location: [facility] Insurance Provider: [place] medicaid Loaner Pump Number: aware Personal Pump: hands free Comments: Attempted BF, infant too sleepy. Nuzzled at breast. Discussed breast engorgement prevention and management. Discussed plugged ducts, signs and symptoms. Reviewed when to expect mother's full milk supply, and regulation of supply. NexPlanar carli, as well as meal program reviewed. Discussed pumps offered through mother's insurance. Mother aware loaner pump available until her pump arrives. Support and encouragement offered. Nini Borges RN 09/21/2024 3:46 PM GER OF CLINICAL * Plan of Care - Nancy Crooks [...] Pain control; VSS; Alternate activity with rest Custodial Patient Centered Goal for Treatment: Safe dc home Summary: Pt progressing toward plan of care goals. GER OF CLINICAL * Plan of Care - Soumya Teixeira RN - 09/21/2024 2:54 AM MANAGER OF CLINICAL Problem: General Patient Education Goal: Knowledge of [...] regimen, continue to pump8-12x per day ' Custodial Patient Centered Goal for Treatment: Safe dc home Summary: Patient is adequately progressing towards care plan goals. GER OF CLINICAL * Note - Sultana Schwarz RN - 09/20/2024 8:40 AM CST Discussed importance of pumping 8-12 times daily for infants in NICU. Discussed importance of breasts massage, pumping then hand expression. Discussed pump, pump settings, how to clean all pumping parts, use applications instructor bag daily, and how to collect and store ebm and take to NICU. Mother states has a hands free pump to use after discharge; discussed to ask NICU for an electric breast pump upon discharge. Discussed care during engorgement and aware of all discharge resources. Mother shown hand expression with no drops of colostrum noted. Emotional support given. GER OF CLINICAL * Plan of Care - Arianne Lee [...] the Shift: VSS, pain controlled, BP controlled Custodial Patient Centered Goal for Treatment: safe dsicharge to home Summary: VSS, pain controlled, BP Controlled. GER OF CLINICAL * Plan of Care - Blessing Dean [...] for the Shift: VSS; pain management; rest Custodial Patient Centered Goal for Treatment: Safe discharge home Summary: Pt is progressing towards goals. GER OF CLINICAL * Plan of Care - Ashley Michaud RN - 09/19/2024 7:41 PM MANAGER OF CLINICAL Goals: Clinical Goals for the Shift: Rest, VSS Custodial Patient Centered Goal for Treatment: healthy mom and babies Summary: Patient resting comfortably GER OF CLINICAL * Op Note - Rey Quinonez MD - 09/19/2024 1:30 PM CST [facility] Section Delivery Note Patient's Name: Suki Leon : 1995 Attending Physician: Josefina Peter MD Surgical Team: Surgeons and Role: * Josefina Peter MD - Primary * Anastasia Plaza MD - Resident - Assisting * Rey Quinonez MD - Resident - Assisting * Joellen Schilling MD - Fellow Clinic: [facility] Primary Diagnoses: Preeclampsia with severe features Monochorionic diamniotic twins Severe growth restriction of Twin A Aortic dilation of Twin B Lateral ventriculomegaly of Twin B Depression/anxiety Obesity Delivery method: Tiffany Leon [[id number]] [351] Nancy Leon [[id number]] [351] Anesthesia: Tiffany Leon [[id number]] Combined Spinal/Epidural [300] Nancy Leon [[id number]] Combined Spinal/Epidural [300] Membranes: Tiffany Leon [[id number]] Artificial Nancy Leon [[id number]] Artificial rupture, clear. Time ruptured prior to delivery: rupture date, rupture time, delivery date, or delivery time have not been documented Antibiotics: Ancef Infant Delivery Date/Time: 09/19/2024 at 2:59 PM Placenta Delivery Date & Time: Tiffany Leon [[id number]] 09/19/2024 3:02 PM Nancy Leon [[id number]] 09/19/2024 3:02 PM Cord: Tiffany Leon [[id number]] 3 vessels [3] Nancy Leon [[id number]] 3 vessels [3] Delayed cord clamping: Yes, 60 seconds. For Twin B : living5 lb 9.2 oz (2.53 kg)male MRN: Tiffany Leon [[id number]] [id number] Nancy Leon [[id number]] APGARs: Tiffany Leon [[id number]] 9 Nancy Leon [[id number]] 8 / Tiffany Leon [[id number]] 9 Nancy Leon [] 9 Disposition: NICU [...] in vertex presentation. APGARS were Tiffany Leon [[id number]] 9 Nancy Leon [] 8 / Edward, Tiffany [[id number]] 9 Edward, Nancy [[id number]] 9 at 1 and 5 minutes respectively. [...] Josefina Peter MD at 09/21/2024 10:12 PM MANAGER OF CLINICAL GER OF CLINICAL GER OF CLINICAL Associated attestation - Josefina Peter MD - 09/21/2024 10:12 PM MANAGER OF CLINICAL I was present for the entire procedure; [...] Ann MD Anesthesia Fellow: Liliam Rodriguez MD Tax Clerk: Apolinar Schmitt MD; Abena Denton MD Brand Designer: Carlos Shukla RN; Venus Jesus RN Scrub: Cayla Park RN L+D Nurse: Abena Cohn RN Patient Forestry Contractor: Jonatan Kelly ST DATE OF SURGERY : [...] Josefina Peter MD at 10/05/2024 8:45 PM MANAGER OF CLINICAL GER OF CLINICAL GER OF CLINICAL Associated attestation - Josefina Peter MD - 10/05/2024 8:45 PM MANAGER OF CLINICAL I was present for the entire procedure. [...] for the Shift: VSS, monitor bp, rest Custodial Patient Centered Goal for Treatment: healthy mom and babies Summary: Milla Cazares RN GER OF CLINICAL * Plan of Care - Tevin Bateman RN - 09/18/2024 8:30 AM CST Goals: Clinical Goals for the Shift: VSS, reactive nst, pain control, rest Custodial Patient Centered Goal for Treatment: healthy mom [...] management medication regimen will improve Outcome: Progressing GER OF CLINICAL * Plan of Care - Arabella Esparza [...] Shift: vs wnl, AM labs , rest Assembly Person Patient Centered Goal for Treatment: healthy mom healthy babies Summary: Arabella Esparza RN GER OF CLINICAL * Plan of Alejo Delgado RN - 09/17/2024 10:47 AM MANAGER OF CLINICAL Problem: General Patient Education Goal: Knowledge of [...] Shift: VSS, reactive nst, pain control, rest Custodial Patient Centered Goal for Treatment: healthy mom healthy babies Summary: Alejo Rose RN GER OF CLINICAL * Plan of Care - Arabella Esparza [...] Goals for the Shift: vs wnl, rest Assembly Person Patient Centered Goal for Treatment: healthy mom healthy babies Summary: Arabella Esparza RN GER OF CLINICAL * Plan of Care - Alejo Rose RN - 09/16/2024 10:01 AM MANAGER OF CLINICAL Problem: General Patient Education Goal: Knowledge of [...] worsening s/s of PreE, pain control, rest Assembly Person Patient Centered Goal for Treatment: healthy mom healthy babies Summary: Alejo Rose RN GER OF CLINICAL * Plan of Care - Tash Borden [...] Shift: VSS, adequate pain control < 4 Assembly Person Patient Centered Goal for Treatment: healthy mom healthy babies Summary: GER OF CLINICAL * Plan of Care - Livia Meléndez [...] NST, learn about next steps in care Custodial Patient Centered Goal for Treatment: healthy mom healthy babies Livia Meléndez RN GER OF CLINICAL * Plan of Care - Maureen Keith RN - 09/14/2024 11:08 AM MANAGER OF CLINICAL Problem: General Patient Education Goal: Knowledge of [...] for s/s of worsening preE, reactive NST Assembly Person Patient Centered Goal for Treatment: healthy mom healthy babies Summary: Maureen Keith RN GER OF CLINICAL * Plan of Care - Polly Umana [...] worsening s/s of preE, pain control, rest Assembly Person Patient Centered Goal for Treatment: healthy mom healthy babies GER OF CLINICAL * Plan of Care - Blessing Barone [...] s/s of PreE; Reactive NST; promote rest Assembly Person Patient Centered Goal for Treatment: healthy mom and healthy baby Blessing Barone RN GER OF CLINICAL * Plan of Rohit - Polly Umana [...] worsening s/s of preE, pain control, rest Custodial Patient Centered Goal for Treatment: healthy mom healthy baby GER OF CLINICAL * Plan of Rohit - Blessing Barone [...] monitor for s/s of PreE; promote rest Assembly Person Patient Centered Goal for Treatment: healthy mom and healthy babies Blessing Barone RN GER OF CLINICAL * Plan of Care - Polly Umana [...] worsening s/s of preE, pain control, rest Custodial Patient Centered Goal for Treatment: healthy mom healthy baby GER OF CLINICAL * Plan of Care - Dave Juarez [...] Shift: vss, BP monitoring, reactive NSTx2, rest Custodial Patient Centered Goal for Treatment: healthy mom and healthy babies Summary: GER OF CLINICAL * Plan of Care - Jessica Morel [...] Goals: Clinical Goals for the Shift: VSS Custodial Patient Centered Goal for Treatment: healthy mom and healthy babies GER OF CLINICAL * Plan of Care - Dave Juarez [...] Shift: vss, reactive NSTx2, BP control, rest Assembly Person Patient Centered Goal for Treatment: healthy mom and healthy babies Summary: GER OF CLINICAL * Plan of Care - Selena Last [...] s/s of complications related to pre-E, rest Custodial Patient Centered Goal for Treatment: healthy mom and healthy babies Summary: Patient resting in bed. Patient had no complaints of pain, headache, cramping or ctx. Patient VSS. GER OF CLINICAL * Plan of Care - Cha Kelly [...] x2, encourage ambulation and positive coping mechanisms. Custodial Patient Centered Goal for Treatment: healthy mom and healthy babies Summary:Will continue to monitor patient progress towards clinical goals. GER OF CLINICAL * Plan of Care - Arabella Esparza [...] vs wnl, am lab draw, controlled BP Custodial Patient Centered Goal for Treatment: healthy mom and healthy babies Summary: Arabella Esparza RN GER OF CLINICAL * Plan of Rohit - Blessing Barone [...] WNL; pain control; Reactive NST; promote rest Custodial Patient Centered Goal for Treatment: healthy mom and healthy babies Blessing Barone RN GER OF CLINICAL * Plan of Torrie Sawant RN - 09/07/2024 11:26 PM CST Goals: Clinical Goals for the Shift: vss, pain control, monitor symptoms of pre-E, rest Assembly Person Patient Centered Goal for Treatment: healthy mom [...] improve Outcome: Progressing Summary: Torrie Cline RN GER OF CLINICAL * Plan of Care - Alejo Rose RN - 09/07/2024 9:11 AM MANAGER OF CLINICAL Problem: Discharge Planning Goal: Understanding discharge needs [...] s/s of pre E, pain control, rest Custodial Patient Centered Goal for Treatment: healthy mom and baby Summary: Alejo Rose RN GER OF CLINICAL * Plan of Care - Jenn Mcallister [...] NST; BP monitoring; medication administration; pain management Custodial Patient Centered Goal for Treatment: healthy mom and baby GER OF CLINICAL * Plan of Care - Maria Luisa Sawyer RN - 09/06/2024 11:46 AM MANAGER OF CLINICAL Problem: Discharge Planning Goal: Understanding discharge needs [...] for the Shift: VSS; labs; BP monitoring Assembly Person Patient Centered Goal for Treatment: healthy mom and baby Summary: GER OF CLINICAL * Plan of Care - Jenn Mcallister [...] for the Shift: VSS; labs; BP monitoring Custodial Patient Centered Goal for Treatment: healthy mom and baby GER OF CLINICAL * Plan of Care - Alejo Rose RN - 09/05/2024 10:54 AM MANAGER OF CLINICAL Problem: Discharge Planning Goal: Understanding discharge needs [...] nst, no worsening s/s of preE, rest Custodial Patient Centered Goal for Treatment: healthy mom and baby Summary: Alejo Rose RN GER OF CLINICAL * Plan of Care - Arabella Esparza [...] Goals for the Shift: vs wnl, rest Custodial Patient Centered Goal for Treatment: D/C home safely after delivery Summary: Arabella Esparza RN GER OF CLINICAL * Plan of Care - Livia Meléndez [...] NST, learn about next steps in care Custodial Patient Centered Goal for Treatment: D/C home safely after delivery Livia Meléndez RN GER OF CLINICAL * Plan of Care - Arabella Esparza [...] Goals for the Shift: vs wnl, rest Assembly Person Patient Centered Goal for Treatment: D/C home safely after delivery Summary: Arabella Esparza RN GER OF CLINICAL * Plan of Care - iLvia Meléndez RN - 09/03/2024 9:30 AM CST [...] NST, learn about next steps in care Custodial Patient Centered Goal for Treatment: D/C home safely after delivery Livia Meléndez RN GER OF CLINICAL * Plan of Care - Denias Bonilla RN - 09/02/2024 10:38 PM CST [...] Clinical Goals for the Shift: VSS, rest Custodial Patient Centered Goal for Treatment: D/C home safely after delivery Summary: Continue antepartum care. GER OF CLINICAL * Plan of Rohit - Livia Meléndez [...] VSS, BP management, reactive NST, ambulation, shower Custodial Patient Centered Goal for Treatment: healthy mom healthy babies Livia Meléndez RN GER OF CLINICAL * Plan of Care - Polly Umana [...] worsening s/s of preE, pain control, rest Custodial Patient Centered Goal for Treatment: healthy mom healthy babies GER OF CLINICAL * Plan of Care - Nicole Mercado [...] for the Shift: Monitor VVS, NST, rest Assembly Person Patient Centered Goal for Treatment: positive outcomes for patient and babies GER OF CLINICAL * Plan of Care - Polly Umana [...] for the Shift: VSS, pain control, rest Assembly Person Patient Centered Goal for Treatment: healthy mom healthy baby GER OF CLINICAL * Plan of Care - Dave Juarez [...] Shift: vss, reactive NSTx2, monitor BP, rest Assembly Person Patient Centered Goal for Treatment: healthy mom and babies Summary: GER OF CLINICAL * Plan of Care - Yoselin Moore RN - 08/30/2024 9:43 PM MANAGER OF CLINICAL Problem: General Patient Education Goal: Knowledge of [...] rest, monitor for s/s of severe PreE. Assembly Person Patient Centered Goal for Treatment: healthy mom and babies GER OF CLINICAL * Plan of Care - Cha Kelly [...] x2, encourage ambulation, promote positive coping skills. Assembly Person Patient Centered Goal for Treatment: healthy mom and babies Summary: Will continue to monitor patient progress towards clinical goals. GER OF CLINICAL * Plan of Care - Milla Cazares [...] for the Shift: VSS, monitor BP, rest Assembly Person Patient Centered Goal for Treatment: healthy mom and babies Summary: Milla Cazares RN GER OF CLINICAL * Plan of Care - Jessica Morel [...] the Shift: VSS, monitor s/sx of preE Assembly Person Patient Centered Goal for Treatment: healthy mom and healthy babies GER OF CLINICAL * Plan of Care - Dave Juarez [...] for the Shift: vss, BP monitoring, rest Custodial Patient Centered Goal for Treatment: healthy mom and healthy babies Summary: GER OF CLINICAL * Plan of Care - Blessing Barone [...] s/s of PreE; Reactive NST; promote rest Custodial Patient Centered Goal for Treatment: healthy mom and healthy babies Blessing Barone RN GER OF CLINICAL * Plan of Care - Jessica Morel [...] VSS, pain control, monitor s/sx of PreE Custodial Patient Centered Goal for Treatment: healthy mom and baby GER OF CLINICAL * Plan of Care - Michelle Lorenzo [...] worsening s/s of pre E, pain control Assembly Person Patient Centered Goal for Treatment: healthy mom and baby Summary: GER OF CLINICAL * Plan of Care - Jessica Morel [...] Goals for the Shift: VSS, BP monitoring Assembly Person Patient Centered Goal for Treatment: healthy mom and baby GER OF CLINICAL * Plan of Care - Dave Juarez [...] reactive NSTx2, pain control, BP monitoring, rest Custodial Patient Centered Goal for Treatment: healthy mom and baby Summary: GER OF CLINICAL * Plan of Care - Arabella Esparza [...] the Shift: vs wnl, rest, morning labs Assembly Person Patient Centered Goal for Treatment: healthy mom and baby Summary: Arabella Esparza RN GER OF CLINICAL * Plan of Care - Dave Juarez [...] Shift: vss, reactive NSTx2, BP monitor, rest Assembly Person Patient Centered Goal for Treatment: healthy mom and baby Summary: GER OF CLINICAL * Plan of Care - Floyd Ahumada [...] stable VS; reactive NST; monitro blood pressure Assembly Person Patient Centered Goal for Treatment: healthy mom and baby Summary: Floyd Ahumada RN GER OF CLINICAL * Plan of Care - Polly Umana RN - 08/22/2024 9:39 PM CST Problem: [...] monitor for worsening s/s of PreE, rest Assembly Person Patient Centered Goal for Treatment: healthy mom healthy babies GER OF CLINICAL * Plan of Care - Floyd Ahumada [...] for the Shift: Stable VS; reactive NST Assembly Person Patient Centered Goal for Treatment: healthy mom and baby Summary: Floyd Ahumada RN GER OF CLINICAL * Plan of Rohit - Torrie Cline RN - 08/21/2024 9:34 PM CST Goals: Clinical Goals for the Shift: vss, monitor s/s of pre-E, rest Assembly Person Patient Centered Goal for Treatment: healthy mom [...] improve Outcome: Progressing Summary: Torrie Cline RN GER OF CLINICAL * Plan of Care - Michelle Lorenzo [...] Shift: stable VS, reactive NST, pain control Custodial Patient Centered Goal for Treatment: healthy mom and babies Summary: GER OF CLINICAL * Plan of Care - Milla Cazares [...] for the Shift: VSS, monitor BP, rest Custodial Patient Centered Goal for Treatment: healthy mom and babies Summary: Milla Cazares RN GER OF CLINICAL * Plan of Care - Michelle Lorenzo [...] Shift: stable VS, reactive NST, pain control Assembly Person Patient Centered Goal for Treatment: healthy mom and babies Summary: GER OF CLINICAL * Plan of Care - Milla Cazares [...] for the Shift: VSS, monitor BP, rest Custodial Patient Centered Goal for Treatment: healthy mom and babies Summary: Milla Cazares RN GER OF CLINICAL * Plan of Care - Mima Whatley [...] the Shift: VSS, rest, monitor pre-E s/s Custodial Patient Centered Goal for Treatment: healthy mom, healthy babies Summary: GER OF CLINICAL * Plan of Care - Kim Eugene RN - 08/18/2024 9:36 PM CST Goals: Clinical Goals for the Shift: monitor vss and promote rest Custodial Patient Centered Goal for Treatment: healthy mom [...] health care needs will improve Outcome: Progressing GER OF CLINICAL * Plan of Care - Maria Luisa Sawyer RN - 08/18/2024 10:32 AM MANAGER OF CLINICAL Problem: Discharge Planning Goal: Understanding discharge needs [...] Shift: VSS, monitor s/s of preE, rest Custodial Patient Centered Goal for Treatment: healthy mom and babies Summary: GER OF CLINICAL * Plan of Rohit - Libby Hicks [...] Shift: VSS, monitor s/s of preE, rest Custodial Patient Centered Goal for Treatment: healthy mom and babies Summary: Libby Hicks RN GER OF CLINICAL * Plan of Care - Maureen Keith RN - 08/17/2024 9:55 AM MANAGER OF CLINICAL Problem: Discharge Planning Goal: Understanding discharge needs [...] the Shift: VSS, headache relief, reactive NST Assembly Person Patient Centered Goal for Treatment: healthy mom and babies Summary: Maureen Keith RN GER OF CLINICAL * Plan of Care - Torrie Cline RN - 08/16/2024 10:26 PM CST Goals: Clinical Goals for the Shift: vss, pain relied, monitor for s.s of pre-E, rest Custodial Patient Centered Goal for Treatment: healthy mom [...] improve Outcome: Progressing Summary: Torrie Cline RN GER OF CLINICAL * Plan of Care - Maureen Keith RN - 08/16/2024 8:46 AM MANAGER OF CLINICAL Problem: Discharge Planning Goal: Understanding discharge needs [...] VSS, monitor s/s of preE, reactive NST Assembly Person Patient Centered Goal for Treatment: healthy mom and babies Summary: Maureen Keith RN GER OF CLINICAL * Plan of Torrie Sawant RN - 08/15/2024 9:28 PM CST Goals: Clinical Goals for the Shift: vss, monitor for s/s of pre-E, rest Custodial Patient Centered Goal for Treatment: healthy mom [...] improve Outcome: Progressing Summary: Torrie Cline RN GER OF CLINICAL * Plan of Blessing Dominguez RN - [...] s/s of PreE; Reactive NST; promote rest Assembly Person Patient Centered Goal for Treatment: healthy mom and healthy babies Blessing Barone RN GER OF CLINICAL * Plan of Rohit - Nancy Garcia [...] Goals: Clinical Goals for the Shift: VSS Custodial Patient Centered Goal for Treatment: healthy mom and babies Summary: Nancy Garcia RN GER OF CLINICAL * Plan of Care - Hilda Brunner RN - 08/14/2024 10:34 AM CST Goals: Clinical Goals for the Shift: VSS Custodial Patient Centered Goal for Treatment: healthy mom [...] health care needs will improve Outcome: Progressing GER OF CLINICAL * Plan of Care - Torrie Cline RN - 08/13/2024 8:59 PM CST Goals: Clinical Goals for the Shift: vss, pain control, rest Assembly Person Patient Centered Goal for Treatment: healthy mom [...] improve Outcome: Progressing Summary: Torrie Cline RN GER OF CLINICAL * Plan of Care - Livia Meléndez [...] management, learn about next steps in care Assembly Person Patient Centered Goal for Treatment: healthy mom and babies Summary: Livia Meléndez RN GER OF CLINICAL * Plan of Rohit - Nancy Garcia [...] Pain relief; Monitor S/S of preE; Rest Assembly Person Patient Centered Goal for Treatment: Healthy mom and healthy babies Summary: Nancy Garcia RN GER OF CLINICAL * Plan of Care - Heather Abel RN - 08/12/2024 7:23 AM CST Goals: Clinical Goals for the Shift: VSS; Pain relief; Monitor S/S of preE; Rest Custodial Patient Centered Goal for Treatment: Healthy mom [...] health care needs will improve Outcome: Progressing GER OF CLINICAL * Plan of Torrie Sawant RN - 08/11/2024 7:57 PM CST Goals: Clinical Goals for the Shift: vss, pain relief, monitor s/s of pre-E, rest Assembly Person Patient Centered Goal for Treatment: healthy mom [...] improve Outcome: Progressing Summary: Torrie Cline RN GER OF CLINICAL * Plan of Carol Raya RN - 08/11/2024 9:46 AM CST Goals: Clinical Goals for the Shift: Monitor vitals and s/sx of PreE Custodial Patient Centered Goal for Treatment: healthy mom [...] Outcome: Progressing Summary: Pt progressing towards goals. GER OF CLINICAL * Plan of Care - Jessica Morel [...] the Shift: VSS, monitor s/sx of PreE Custodial Patient Centered Goal for Treatment: healthy mom and baby GER OF CLINICAL * Note - Wendy Armstrong RN - [...] regarding choice to provide EBM for twins. GER OF CLINICAL * Plan of Care - Hilda Brunner RN - 08/10/2024 1:33 PM CST Goals: Clinical Goals for the Shift: VSS, monitor s/sx of preE Assembly Person Patient Centered Goal for Treatment: healthy mom [...] health care needs will improve Outcome: Progressing GER OF CLINICAL * Plan of Care - Jessica Morel [...] the Shift: VSS, monitor s/sx of preE Assembly Person Patient Centered Goal for Treatment: healthy mom and baby GER OF CLINICAL * Plan of Care - Floyd Ahumada [...] for the Shift: Stable VS; reactive NST Assembly Person Patient Centered Goal for Treatment: healthy mom and baby Summary: Floyd Ahumada RN GER OF CLINICAL * Plan of Care - Jessica Morel [...] the Shift: VSS, monitor s/sx of PreE Custodial Patient Centered Goal for Treatment: healthy mom and baby GER OF CLINICAL * Plan of Care - Floyd Ahumada [...] for the Shift: Stable VS; reactive NST Custodial Patient Centered Goal for Treatment: healthy mom and baby Summary: Floyd Ahumada RN GER OF CLINICAL * Plan of Care - Nick Solomon [...] VS, monitor s/s pre-e, pain control, rest Custodial Patient Centered Goal for Treatment: healthy mom and healthy baby Summary: Nick Solomon RN GER OF CLINICAL * Plan of Care - Michelle Lorenzo [...] and no s/s of worsening pre E Custodial Patient Centered Goal for Treatment: healthy mom and healthy baby Summary: GER OF CLINICAL * Plan of Care - Blessing Barone [...] the Shift: VS WNL; labs; promote rest Assembly Person Patient Centered Goal for Treatment: healthy mom [...] NST, and no worsening s/s of pre Assembly Person Patient Centered Goal for Treatment: healthy mom [...] VSS, monitor for s/s of pre-e, rest Assembly Person Patient Centered Goal for Treatment: healthy mom [...] for the Shift: vs wnl, reactive NST Assembly Person Patient Centered Goal for Treatment: healthy mom and baby Summary: RACHEL Mckay * Plan of Care - Kim Eugene RN - 08/04/2024 9:22 PM CDT Goals: Clinical Goals for the Shift: monitor vss and promote rest Custodial Patient Centered Goal for Treatment: healthy mom [...] NST, learn about next steps in care Assembly Person Patient Centered Goal for Treatment: healthy mom [...] VS, monitor s/s pre-e, pain control, rest Assembly Person Patient Centered Goal for Treatment: healthy mom [...] [place]. She delivered a viable Tiffany Leon [[id number]] male Nancy Leon [[id number]] male infant with apgars Tiffany Leon [[id number]] 9 Nancy Leon [[id number]] 8 and Tiffany Leon [[id number]] 9 Nancy Leon [[id number]] 9 at one and five minutes of [...] chosen implant for contraception. Nexplanon placed 09/20 GER OF CLINICAL GER OF CLINICAL GER OF CLINICAL GER OF CLINICAL GER OF CLINICAL GER OF CLINICAL GER OF CLINICAL GER OF CLINICAL GER OF CLINICAL GER OF CLINICAL GER OF CLINICAL * Plan of Care - Hilda Brunner RN - 08/03/2024 3:18 PM CDT Goals: Clinical Goals for the Shift: VSS Assembly Person Patient Centered Goal for Treatment: healthy mom [...] the Shift: VSS, monitor for preeclampsia complications Custodial Patient Centered Goal for Treatment: healthy mom [...] preeclampsia, reactive and reassuring monitoring x 2, Assembly Person Patient Centered Goal for Treatment: healthy mom and baby * Plan of Care - Torrie Cline RN - 08/01/2024 9:27 PM CDT Goals: Clinical Goals for the Shift: vss, pain control for headache, monitor s/s of pre-E, rest Assembly Person Patient Centered Goal for Treatment: healthy mom [...] Shift: vs wnl, reactive NST, monitor BP Assembly Person Patient Centered Goal for Treatment: Positive outcomes for patient and babies Summary: Arabella Esparza GN * Plan of Care - Kim Eugene RN - 07/31/2024 8:42 PM CDT Goals: Clinical Goals for the Shift: monitor vss and promote rest Custodial Patient Centered Goal for Treatment: Positive outcomes [...] Outcome: Progressing * Plan of Care - Sinhg Sainz RN - 07/31/2024 6:11 PM CDT [...] Goals for the Shift: VSS; reactive NST. Custodial Patient Centered Goal for Treatment: Positive outcomes [...] and reassuring monitoring x 2, promote rest. Assembly Person Patient Centered Goal for Treatment: healthy mom [...] Leon for [facility] check in. Medical History OB-PERSONAL CARE AIDE care has been established with [facility]. Medical insurance coverage is through [employer] [place] [employer] and [employer]. Pt is currently 26.4 weeks gestation. Social History Current address is [address] [place] [id number], where she lives with her . Currently [phone] (home) is the best phone number for future contact. Pt reports that her and family will be a positive support for her. /Father of the baby, Florentino Leon, can be reached at [phone]. FOB has been present and supportive at the hospital. Mood and Anxiety Maternal history of anxiety noted in chart. Pt reports some adjustment to alf hospital admission, but state she is currently [...] Plan Social Work will continue to attend [facility] and collaborate with medical team. Social Work will follow for support and additional needs should they arise. ARACELIS Tyler, REHABILITATION PHYSICIAN [facility] Clinical Silica Filter Operator [facility] * Plan [...] IMMUNE GLOBULIN EVAL Timed 09/20/2024 4:48 AM MANAGER OF CLINICAL BLEED SCREEN Timed 09/20/2024 4: 48 AM MANAGER OF CLINICAL ABO/RH Timed 09/20/2024 4:48 AM MANAGER OF CLINICAL CBC WITHOUT DIFFERENTIAL Routine 09/20/2024 4:48 AM MANAGER OF CLINICAL SURGICAL PATHOLOGY Routine 09/19/2024 4: 06 PM MANAGER OF CLINICAL SECTION 09/19/2024 1:56 PM MANAGER OF CLINICAL TIUP Case Notes PreE w/ SF and Multiple gestation EGFR Timed 09/18/2024 6:21 AM MANAGER OF CLINICAL CBC WITHOUT DIFFERENTIAL Timed 09/18/2024 6:21 AM MANAGER OF CLINICAL TYPE AND SCREEN Timed 09/18/2024 6:21 AM MANAGER OF CLINICAL COMPREHENSIVE METABOLIC PANEL Timed 09/18/2024 6:21 AM MANAGER OF CLINICAL NONSTRESS TEST Routine 09/17/2024 2:58 PM MANAGER OF CLINICAL Preeclampsia, unspecified trimester 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 US OB FOLLOW UP IP Routine 09/15/2024 1:08 PM MANAGER OF CLINICAL EGFR Timed 09/15/2024 6:17 AM MANAGER OF CLINICAL CBC WITHOUT DIFFERENTIAL Timed 09/15/2024 6:17 AM MANAGER OF CLINICAL TYPE AND SCREEN Timed 09/15/2024 6:17 AM MANAGER OF CLINICAL COMPREHENSIVE METABOLIC PANEL Timed 09/15/2024 6:17 AM MANAGER OF CLINICAL NONSTRESS TEST Routine 09/13/2024 5:10 PM MANAGER OF CLINICAL Preeclampsia, unspecified trimester 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 EGFR Timed 09/12/2024 6:35 AM MANAGER OF CLINICAL CBC WITHOUT DIFFERENTIAL Timed 09/12/2024 6:35 AM MANAGER OF CLINICAL TYPE AND SCREEN Timed 09/12/2024 6:35 AM MANAGER OF CLINICAL COMPREHENSIVE METABOLIC PANEL Timed 09/12/2024 6:35 AM MANAGER OF CLINICAL EGFR Timed 09/09/2024 6:24 AM MANAGER OF CLINICAL CBC WITHOUT DIFFERENTIAL Timed 09/09/2024 6:24 AM MANAGER OF CLINICAL TYPE AND SCREEN Timed 09/09/2024 6:24 AM MANAGER OF CLINICAL COMPREHENSIVE METABOLIC PANEL Timed 09/09/2024 6:24 AM MANAGER OF CLINICAL US OB LIMITED IP Routine 09/08/2024 10:29 AM MANAGER OF CLINICAL NONSTRESS TEST Routine 09/06/2024 8:38 PM MANAGER OF CLINICAL Preeclampsia, unspecified trimester 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 EGFR Timed 09/06/2024 4:31 AM MANAGER OF CLINICAL CBC WITHOUT DIFFERENTIAL Timed 09/06/2024 4:31 AM MANAGER OF CLINICAL TYPE AND SCREEN Timed 09/06/2024 4:31 AM MANAGER OF CLINICAL COMPREHENSIVE METABOLIC PANEL Timed 09/06/2024 4:31 AM MANAGER OF CLINICAL GROUP B STREPTOCOCCUS CULTURE Routine 09/03/2024 10:29 AM MANAGER OF CLINICAL EGFR Timed 09/03/2024 5:26 AM MANAGER OF CLINICAL CBC WITHOUT DIFFERENTIAL Timed 09/03/2024 5:26 AM MANAGER OF CLINICAL TYPE AND SCREEN Timed 09/03/2024 5:26 AM MANAGER OF CLINICAL COMPREHENSIVE METABOLIC PANEL Timed 09/03/2024 5:26 AM MANAGER OF CLINICAL ECG 12-LEAD Routine 09/02/2024 4:33 PM MANAGER OF CLINICAL EGFR Timed 08/31/2024 6:20 AM MANAGER OF CLINICAL CBC WITHOUT DIFFERENTIAL Timed 08/31/2024 6:20 AM MANAGER OF CLINICAL TYPE AND SCREEN Timed 08/31/2024 6:20 AM MANAGER OF CLINICAL COMPREHENSIVE METABOLIC PANEL Timed 08/31/2024 6:20 AM MANAGER OF CLINICAL NONSTRESS TEST Routine 08/29/2024 2:32 PM MANAGER OF CLINICAL Preeclampsia, unspecified trimester 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 NONSTRESS TEST Routine 08/28/2024 7:47 PM MANAGER OF CLINICAL Preeclampsia, unspecified trimester 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 EGFR Timed 08/28/2024 6:00 AM MANAGER OF CLINICAL CBC WITHOUT DIFFERENTIAL Timed 08/28/2024 6:00 AM MANAGER OF CLINICAL TYPE AND SCREEN Timed 08/28/2024 6:00 AM MANAGER OF CLINICAL COMPREHENSIVE METABOLIC PANEL Timed 08/28/2024 6:00 AM MANAGER OF CLINICAL EGFR Timed 08/25/2024 6:19 AM MANAGER OF CLINICAL CBC WITHOUT DIFFERENTIAL Timed 08/25/2024 6:19 AM MANAGER OF CLINICAL TYPE AND SCREEN Timed 08/25/2024 6:19 AM MANAGER OF CLINICAL COMPREHENSIVE METABOLIC PANEL Timed 08/25/2024 6:19 AM MANAGER OF CLINICAL US OB FOLLOW UP IP Routine 08/24/2024 9:37 AM MANAGER OF CLINICAL EGFR Timed 08/22/2024 6:02 AM MANAGER OF CLINICAL CBC WITHOUT DIFFERENTIAL Timed 08/22/2024 6:02 AM MANAGER OF CLINICAL TYPE AND SCREEN Timed 08/22/2024 6:02 AM MANAGER OF CLINICAL COMPREHENSIVE METABOLIC PANEL Timed 08/22/2024 6:02 AM MANAGER OF CLINICAL EGFR Timed 08/19/2024 6:25 AM MANAGER OF CLINICAL CBC WITHOUT DIFFERENTIAL Timed 08/19/2024 6:25 AM MANAGER OF CLINICAL TYPE AND SCREEN Timed 08/19/2024 6:25 AM MANAGER OF CLINICAL COMPREHENSIVE METABOLIC PANEL Timed 08/19/2024 6:25 AM MANAGER OF CLINICAL US OB LIMITED IP Routine 08/16/2024 8:35 AM MANAGER OF CLINICAL ANTIBODY IDENTIFICATION Routine 08/16/2024 7:34 AM MANAGER OF CLINICAL EGFR Timed 08/16/2024 6:15 AM MANAGER OF CLINICAL THYROID FUNCTION CASCADE Routine 08/16/2024 6:15 AM MANAGER OF CLINICAL CBC WITHOUT DIFFERENTIAL Timed 08/16/2024 6:15 AM MANAGER OF CLINICAL TYPE AND SCREEN Timed 08/16/2024 6:15 AM MANAGER OF CLINICAL COMPREHENSIVE METABOLIC PANEL Timed 08/16/2024 6:15 AM MANAGER OF CLINICAL POCT GLUCOSE DEVICE Routine 08/14/2024 3 :06 PM MANAGER OF CLINICAL ECG 12-LEAD Routine 08/13/2024 9:02 AM MANAGER OF CLINICAL ANTIBODY IDENTIFICATION Routine 08/13/2024 7:42 AM MANAGER OF CLINICAL EGFR Timed 08/13/2024 5:44 AM MANAGER OF CLINICAL HIV 1/2 ANTIBODY PLUS P24 ANTIGEN Routine 08/13/2024 5:44 AM MANAGER OF CLINICAL RPR Routine 08/13/2024 5:44 AM MANAGER OF CLINICAL CBC WITHOUT DIFFERENTIAL Timed 08/13/2024 5:44 AM MANAGER OF CLINICAL TYPE AND SCREEN Timed 08/13/2024 5:44 AM MANAGER OF CLINICAL COMPREHENSIVE METABOLIC PANEL Timed 08/13/2024 5:44 AM MANAGER OF CLINICAL GTT 50GM 1HR GESTATIONAL SCREEN Timed 08/12/2024 11:29 AM MANAGER OF CLINICAL ANTIBODY IDENTIFICATION Routine 08/10/2024 7:02 AM MANAGER OF CLINICAL EGFR Timed 08/10/2024 4:49 AM MANAGER OF CLINICAL CBC WITHOUT DIFFERENTIAL Timed 08/10/2024 4:49 AM MANAGER OF CLINICAL TYPE AND SCREEN Timed 08/10/2024 4:49 AM MANAGER OF CLINICAL COMPREHENSIVE METABOLIC PANEL Timed 08/10/2024 4:49 AM MANAGER OF CLINICAL US OB 14 WEEKS OR OVER IP Routine 08/09/2024 9:47 AM MANAGER OF CLINICAL ANTIBODY IDENTIFICATION Routine 08/07/2024 6:51 AM MANAGER OF CLINICAL EGFR Timed 08/07/2024 5:00 AM MANAGER OF CLINICAL CBC WITHOUT DIFFERENTIAL Timed 08/07/2024 5:00 AM MANAGER OF CLINICAL COMPREHENSIVE METABOLIC PANEL Timed 08/07/2024 5:00 AM MANAGER OF CLINICAL TYPE AND SCREEN Timed 08/07/2024 4:[address] CHEST PE W CONTRAST ED Urgent/IP [...] Results * Bleed Screen (09/20/2024 4:48 AM MANAGER OF CLINICAL) Bleed Screen Negative Blood 09/20/2024 4:48 AM MANAGER OF CLINICAL 09/20/2024 5:03 AM MANAGER OF CLINICAL us Rey Quinonez MD LAB BLOOD BANK TEST ORDERABLE S Final Result [facility] [place] [address] * ABO/Rh (09/20/2024 4:48 AM MANAGER OF CLINICAL) [facility] ABO Rh O Negative Blood 09/20/2024 4:48 AM MANAGER OF CLINICAL 09/20/2024 5:03 AM MANAGER OF CLINICAL Rey Quinonez MD LAB BLOOD BANK TEST ORDERABLE S Final Result Performing Organization Address [facility] Co de Phone Number [facility] [place] [address] * Rh Immune Globulin Eval (09/20/2024 4:48 AM MANAGER OF CLINICAL) [facility] RhIg Administration 1 vial of Rh Immune Globulin (300 mcg dose) RhIg Eligible Yes, eligible [facility] Blood 09/20/2024 4:48 AM MANAGER OF CLINICAL 09/20/2024 5:03 AM MANAGER OF CLINICAL Narrative [facility] - 09/20/2024 5:36 AM MANAGER OF CLINICAL Number of weeks ?->20 weeks or greater antibody screen result:->Negative Rhogam given?->Given Date Given?->08/01/24 Number of vials requested:->1 Result [facility] Sara Eng MD LAB BLOOD BANK TEST ORDERABL ES Final Result Performing Organization Address [facility] de Phone Number [facility] Department [place] [address] * (ABNORMAL) CBC without differential (09/20/2024 4:48 AM MANAGER OF CLINICAL) [facility] WBC 10.3(H) 3.8 - 9.9 K/cumm Hgb 9.7(L) 11.9 - 15.5 g/dL [facility] Hct 28.4(L) 35.6 - 45.5 % [facility] Plt 230 150 - 400 K/cumm [facility] MPV 10.8 9.1 - 12.3 fL [facility] RBC 3.22(L) 3.90 - 5.20 M/cumm [facility] MCV 88.2 81.3 - 96.4 fL [facility] MCH 30.1 27.1 - 33.3 pg [facility] MCHC 34.2 32.3 - 35.7 g/dL [facility] RDW CV 13.9 11.1 - 14.9 % [facility] RDW SD 44.6 35.7 - 48.1 fL [facility] NRBC abs 0.00 0.00 - 0.01 K/cumm [facility] Blood 09/20/2024 4:48 AM MANAGER OF CLINICAL 09/20/2024 5:11 AM MANAGER OF CLINICAL us Sara Eng MD LAB BLOOD ORDERABLES Final R esult [facility] Department [place] [address] * Surgical pathology (09/19/2024 4:06 PM MANAGER OF CLINICAL) Tissue (Placenta) 09/19/2024 4:06 PM MANAGER OF CLINICAL 09/20/2024 8:37 AM MANAGER OF CLINICAL Narrative PATHOLOGY [facility] - 09/26/2024 2:16 PM MANAGER OF CLINICAL EPIC results best viewed via link to PDF [facility] [place] [address] Note to Patients: This report may contain [...] ??F : ??1995 (Age: 29) Address: ??[address] ??[id number] Hospital #: ??[id number] Taken:09/19/2024 Received:09/20/2024 Reported: 09/26/2024 Patient Type: [facility] Inpatient ?? Service: Obstetrics Location: [facility] ??[id number] Physician(s): ??MD Sara Parker M.D. Diagnosis: ??Placenta, delivery - 662 grams diamnionic, monochorionic, pre-term twin placenta - Acute atherosis - Accelerated villous maturation -Trivascular cords with no histopathologic abnormalities [facility]/09/26/2024 14:16 By this signature, I attest that the above diagnosis is based upon my personal examination of the slides(and/or other material indicated in the diagnosis). Natasah Chamberlain M.D. Report Electronically Reviewed and Signed [...] discrete lesions or infarcts are grossly identified. ??Complex Director sections are submitted: ??A1 = arbitrarily assigned twin A, cord and membranes; A2-4 = twin A, printing sales representative parenchyma; A5 = common membrane and T- zone; A6 = arbitrarily assigned twin B, cord and membranes; A7-9 = twin B, printing sales representative parenchyma. ??Jar 3. ? sxv/09/21/2024 11:11 PA(s): Catalino Hernandez, MS, PA ([facility])CM By this signature, I attest that the above diagnosis is based upon my personal examination of the slides(and/or other material). Addenda/Procedures The performance characteristics of some immunohistochemical stains, fluorescence in-situ hybridization tests and immunophenotyping by flow cytometry cited in this report (if any) were determined by the Surgical Pathology and Flow Cytometry Departments at [facility] as part of an ongoing quality systems technician program and in compliance with federally [...] Surgical Pathology and Flow Cytometry Departments of [facility]. ??It has not been cleared or approved by the U. S. Food and Drug Administration. IMAGES AND SCANNED DOCUMENTS, IF INCLUDED, ONLY VIEWABLE IN PDF VERSION OF REPORT us Sara Eng MD LAB PATHOLOGY ORDERABLES Fin al Result PATHOLOGY [facility] 3rd Floor [place], [place] [phone] * eGFR (09/18/2024 6:21 AM MANAGER OF CLINICAL) eGFR >90 >=60 mL/min/1. 73 m2 Comment: [...] last reviewed 2021. Blood 09/18/2024 6:21 AM MANAGER OF CLINICAL 09/18/2024 6:32 AM MANAGER OF CLINICAL us Anastasia Amaro MD LAB BLOOD ORDERABLES Final Result [facility] Department [place] [address] * (ABNORMAL) Comprehensive metabolic panel (09/18/2024 6:21 AM MANAGER OF CLINICAL) Pathologist [facility] Sodium 134(L) 135 - 145 mmol/L Potassium, pl 3.8 3.3 - 4.9 mmol/L [facility] Chloride 105 97 - 110 mmol/L [facility] CO2 23 22 - 32 mmol/L [facility] Anion gap 6 2 - 15 mmol/L [facility] BUN 9 6 - 25 mg/dL [facility] Creatinine 0.69 0.60 - 1.10 mg/dL [facility] Glucose 68(L) 70 - 199 mg/dL [facility] Comment: Interpretive Data Fasting glucose >/= 126 [...] 2022. Calcium 9.0 8.5 - 10.3 mg/dL [facility] Bilirubin, total 0.2 0.1 - 1.2 mg/dL [facility] Protein, pl 6.3(L) 6.5 - 8.5 g/dL [facility] Albumin 3.0(L) 3.5 - 5.0 g/dL [facility] Alk phos 125 40 - 130 Units/L [facility] ALT 14 7 - 45 Units/L [facility] AST 16 10 - 45 Units/L [facility] Blood 09/18/2024 6:21 AM MANAGER OF CLINICAL 09/18/2024 6:32 AM MANAGER OF CLINICAL us Anastasia Amaro MD LAB BLOOD ORDERABLES Final Result [facility] Department of Laboratories [place], [place] [id number] * (ABNORMAL) CBC without differential (09/18/2024 6:21 AM MANAGER OF CLINICAL) Pathologist [facility] WBC 10.0(H) 3.8 - 9.9 K/cumm Hgb 11.6(L) 11.9 - 15.5 g/dL [facility] Hct 34.0(L) 35.6 - 45.5 % [facility] Plt 250 150 - 400 K/cumm [facility] MPV 11.0 9.1 - 12.3 fL [facility] RBC 3.92 3.90 - 5.20 M/cumm [facility] MCV 86.7 81.3 - 96.4 fL [facility] MCH 29.6 27.1 - 33.3 pg [facility] MCHC 34.1 32.3 - 35.7 g/dL [facility] RDW CV 13.7 11.1 - 14.9 % [facility] RDW SD 43.1 35.7 - 48.1 fL [facility] NRBC abs 0.00 0.00 - 0.01 K/cumm [facility] Blood 09/18/2024 6:21 AM MANAGER OF CLINICAL 09/18/2024 6:32 AM MANAGER OF CLINICAL us Anastasia Amaro MD LAB BLOOD ORDERABLES Final Result Performing Organization Address [facility] Co de Phone Number [facility] Department [place] [address] * Type and screen (09/18/2024 6:21 AM MANAGER OF CLINICAL) Abiodun, indirect Negative ABO Rh O Negative [facility] Blood 09/18/2024 6:21 AM MANAGER OF CLINICAL 09/18/2024 6:35 AM MANAGER OF CLINICAL Narrative [facility] - 09/18/2024 7:42 AM MANAGER OF CLINICAL Has the patient had Daratumumab or Isatuximab in the past 6 months?->Unknown us Anastasia Amaro MD LAB BLOOD BANK TEST ORDERA BLES Final Result Performing Organization Address City/[facility]/ZIP Co de Phone Number [facility] [place] [address] * nonstress test (09/17/2024 2:58 PM MANAGER OF CLINICAL) Narrative Sandra Christy MD - 09/17/2024 2:58 PM MANAGER OF CLINICAL Joellen Schilling MD ? 09/17/2024 ??4:04 PM nonstress test Date/Time: 09/17/2024 2:58 PM Performed by: Maureen Calix MD Authorized by: Ana M Rogers MD ?? Ana M Rogers MD OB GYNE ORDERABLES Fi nal Result * US Ob Follow Up (09/15/2024 1:08 PM MANAGER OF CLINICAL) Fetus# Fetus1 VIEWPOINT Estimated Weight 1,709 g&grams VIEWPOINT Placenta Details anterior VIEWPOINT Presentation Vertex; Maternal right- low VIEWPOINT Fetus# Fetus2 VIEWPOINT Estimated Weight 2,585 g&grams VIEWPOINT Placenta Details anterior VIEWPOINT Presentation Vertex; Maternal left- high VIEWPOINT Anatomical Region Laterality Modality Abdomen N/A Ultrasound 09/15/2024 1:08 PM MANAGER OF CLINICAL Impressions 09/15/2024 2:24 PM MANAGER OF CLINICAL Diamniotic (presumed MCDA) TIUP at 33w33d who is admitted for preE with severe features who presents for growth US was previously determined to be monochorionic by the [facility] MFM practice. A thin dividing membrane [...] previously determined to be monochorionic by the [facility] MFMpractice. A thin dividing membrane and [...] R esult * eGFR (09/15/2024 6:17 AM MANAGER OF CLINICAL) eGFR >90 >=60 mL/min/1. 73 m2 Comment: [...] last reviewed 2021. Blood 09/15/2024 6:17 AM MANAGER OF CLINICAL 09/15/2024 6:31 AM MANAGER OF CLINICAL us Anastasia Amaro MD LAB BLOOD ORDERABLES Final Result [facility] [place] [address] * (ABNORMAL) Comprehensive metabolic panel (09/15/2024 6:17 AM MANAGER OF CLINICAL) [facility] Sodium 139 135 - 145 mmol/L Potassium, pl 3.5 3.3 - 4.9 mmol/L [facility] Chloride 106 97 - 110 mmol/L [facility] CO2 21(L) 22 - 32 mmol/L [facility] Anion gap 12 2 - 15 mmol/L [facility] BUN 8 6 - 25 mg/dL [facility] Creatinine 0.66 0.60 - 1.10 mg/dL [facility] Glucose 106 70 - 199 mg/dL [facility] Comment: Interpretive Data Fasting glucose >/= 126 [...] 2022. Calcium 9.0 8.5 - 10.3 mg/dL [facility] Bilirubin, total <0.2 0.1 - 1.2 mg/dL [facility] Protein, pl 6.4(L) 6.5 - 8.5 g/dL [facility] Albumin 3.0(L) 3.5 - 5.0 g/dL [facility] Alk phos 124 40 - 130 Units/L [facility] ALT 19 7 - 45 Units/L [facility] AST 20 10 - 45 Units/L [facility] Blood 09/15/2024 6:17 AM MANAGER OF CLINICAL 09/15/2024 6:31 AM MANAGER OF CLINICAL us Anastasia Amaro MD LAB BLOOD ORDERABLES Final Result [facility] Department [place] [address] * (ABNORMAL) CBC without differential (09/15/2024 6:17 AM MANAGER OF CLINICAL) WBC 10.1(H) 3.8 - 9.9 K/cumm Hgb 11.7(L) 11.9 - 15.5 g/dL [facility] Hct 34.6(L) 35.6 - 45.5 % [facility] Plt 253 150 - 400 K/cumm [facility] MPV 11.2 9.1 - 12.3 fL [facility] RBC 3.94 3.90 - 5.20 M/cumm [facility] MCV 87.8 81.3 - 96.4 fL [facility] MCH 29.7 27.1 - 33.3 pg [facility] MCHC 33.8 32.3 - 35.7 g/dL [facility] RDW CV 13.8 11.1 - 14.9 % [facility] RDW SD 44.1 35.7 - 48.1 fL [facility] NRBC abs 0.00 0.00 - 0.01 K/cumm [facility] Blood 09/15/2024 6:17 AM MANAGER OF CLINICAL 09/15/2024 6:31 AM MANAGER OF CLINICAL us Anastasia Amaro MD LAB BLOOD ORDERABLES Final Result Performing Organization Address [facility] Co de Phone Number [facility] [place] [address] * Type and screen (09/15/2024 6:17 AM MANAGER OF CLINICAL) Abiodun, indirect Negative Comment:Patient has previous antibody history ABO Rh O Negative [facility] Blood 09/15/2024 6:17 AM MANAGER OF CLINICAL 09/15/2024 6:30 AM MANAGER OF CLINICAL Narrative [facility] - 09/15/2024 7:57 AM MANAGER OF CLINICAL Has the patient had Daratumumab or Isatuximab in the past 6 months?->Unknown us Anastasia Amaro MD LAB BLOOD BANK TEST ORDERA BLES Final Result Performing Organization Address City/[facility]/ZIP Co de Phone Number [facility] [place] [address] * nonstress test (09/13/2024 5:10 PM MANAGER OF CLINICAL) Narrative Sandra Christy MD - 09/13/2024 5:10 PM MANAGER OF CLINICAL BolaAnastasia Bay MD ? 09/13/2024 ??5:21 PM [...] nal Result * eGFR (09/12/2024 6:35 AM MANAGER OF CLINICAL) eGFR >90 >=60 mL/min/1. 73 m2 Comment: [...] last reviewed 2021. Blood 09/12/2024 6:35 AM MANAGER OF CLINICAL 09/12/2024 6:51 AM MANAGER OF CLINICAL us Anastasia Amaro MD LAB BLOOD ORDERABLES Final Result [facility] Department [place] [address] * (ABNORMAL) Comprehensive metabolic panel (09/12/2024 6:35 AM MANAGER OF CLINICAL) Sodium 139 135 - 145 mmol/L Potassium, pl 3.8 3.3 - 4.9 mmol/L [facility] Chloride 107 97 - 110 mmol/L [facility] CO2 22 22 - 32 mmol/L [facility] Anion gap 10 2 - 15 mmol/L [facility] BUN 6 6 - 25 mg/dL [facility] Creatinine 0.64 0.60 - 1.10 mg/dL [facility] Glucose 69(L) 70 - 199 mg/dL [facility] Comment: Interpretive Data Fasting glucose >/= 126 [...] 2022. Calcium 8.8 8.5 - 10.3 mg/dL [facility] Bilirubin, total <0.2 0.1 - 1.2 mg/dL [facility] Protein, pl 6.4(L) 6.5 - 8.5 g/dL [facility] Albumin 3.1(L) 3.5 - 5.0 g/dL [facility] Alk phos 122 40 - 130 Units/L [facility] ALT 22 7 - 45 Units/L [facility] AST 23 10 - 45 Units/L [facility] Blood 09/12/2024 6:35 AM MANAGER OF CLINICAL 09/12/2024 6:51 AM MANAGER OF CLINICAL us Anastasia Amaro MD LAB BLOOD ORDERABLES Final Result [facility] Department [place] [address] * (ABNORMAL) CBC without differential (09/12/2024 6:35 AM MANAGER OF CLINICAL) Pathologist [facility] WBC 10.0(H) 3.8 - 9.9 K/cumm Hgb 11.8(L) 11.9 - 15.5 g/dL [facility] Hct 35.3(L) 35.6 - 45.5 % [facility] Plt 226 150 - 400 K/cumm [facility] MPV 11.2 9.1 - 12.3 fL [facility] RBC 3.97 3.90 - 5.20 M/cumm [facility] MCV 88.9 81.3 - 96.4 fL [facility] MCH 29.7 27.1 - 33.3 pg [facility] MCHC 33.4 32.3 - 35.7 g/dL [facility] RDW CV 13.8 11.1 - 14.9 % [facility] RDW SD 44.5 35.7 - 48.1 fL [facility] NRBC abs 0.02(H) 0.00 - 0.01 K/cumm [facility] Blood 09/12/2024 6:35 AM MANAGER OF CLINICAL 09/12/2024 6:52 AM MANAGER OF CLINICAL Anastasia Amaro MD LAB BLOOD ORDERABLES Final Result [facility] Department [place] [address] * Type and screen (09/12/2024 6:35 AM MANAGER OF CLINICAL) [facility] ABO Rh O Negative Abiodun, indirect Negative [facility] Comment:Patient has previous antibody history Blood 09/12/2024 6:35 AM MANAGER OF CLINICAL 09/12/2024 6:48 AM MANAGER OF CLINICAL Narrative [facility] - 09/12/2024 7:49 AM MANAGER OF CLINICAL Has the patient had Daratumumab or Isatuximab in the past 6 months?->Unknown us Anastasia Amaro MD LAB BLOOD BANK TEST ORDERA BLES Final Result Performing Organization Address [facility] Co de Phone Number [facility] Department [place] [address] * eGFR (09/09/2024 6:24 AM MANAGER OF CLINICAL) eGFR >90 >=60 mL/min/1. 73 m2 Comment: [...] last reviewed 2021. Blood 09/09/2024 6:24 AM MANAGER OF CLINICAL 09/09/2024 6:52 AM MANAGER OF CLINICAL us Anastasia Amaro MD LAB BLOOD ORDERABLES Final Result Performing Organization Address [facility] Co de Phone Number BIA TODD [facility] Department [place] [address] * (ABNORMAL) Comprehensive metabolic panel (09/09/2024 6:24 AM MANAGER OF CLINICAL) Sodium 141 135 - 145 mmol/L Potassium, pl 3.8 3.3 - 4.9 mmol/L [facility] Chloride 108 97 - 110 mmol/L [facility] CO2 22 22 - 32 mmol/L [facility] Anion gap 11 2 - 15 mmol/L [facility] BUN 8 6 - 25 mg/dL [facility] Creatinine 0.75 0.60 - 1.10 mg/dL [facility] Glucose 70 70 - 199 mg/dL [facility] Comment: Interpretive Data Fasting glucose >/= 126 [...] 2022. Calcium 8.9 8.5 - 10.3 mg/dL [facility] Bilirubin, total <0.2 0.1 - 1.2 mg/dL [facility] Protein, pl 6.2(L) 6.5 - 8.5 g/dL [facility] Albumin 3.2(L) 3.5 - 5.0 g/dL [facility] Alk phos 117 40 - 130 Units/L [facility] ALT 22 7 - 45 Units/L [facility] AST 23 10 - 45 Units/L [facility] Blood 09/09/2024 6:24 AM MANAGER OF CLINICAL 09/09/2024 6:52 AM MANAGER OF CLINICAL us Anastasia Amaro MD LAB BLOOD ORDERABLES Final Result [facility] Department [place] [address] * (ABNORMAL) CBC without differential (09/09/2024 6:24 AM MANAGER OF CLINICAL) Pathologist [facility] WBC 8.6 3.8 - 9.9 K/cumm Hgb 10.9(L) 11.9 - 15.5 g/dL [facility] Hct 33.1(L) 35.6 - 45.5 % [facility] Plt 239 150 - 400 K/cumm [facility] MPV 11.0 9.1 - 12.3 fL [facility] RBC 3.77(L) 3.90 - 5.20 M/cumm [facility] MCV 87.8 81.3 - 96.4 fL [facility] MCH 28.9 27.1 - 33.3 pg [facility] MCHC 32.9 32.3 - 35.7 g/dL [facility] RDW CV 13.8 11.1 - 14.9 % [facility] RDW SD 43.8 35.7 - 48.1 fL [facility] NRBC abs 0.00 0.00 - 0.01 K/cumm [facility] Blood 09/09/2024 6:24 AM MANAGER OF CLINICAL 09/09/2024 6:52 AM MANAGER OF CLINICAL Anastasia Amaro MD LAB BLOOD ORDERABLES Final Result Performing Organization Address [facility] Co de Phone Number [facility] Department [place] [address] * Type and screen (09/09/2024 6:24 AM MANAGER OF CLINICAL) Pathologist [facility] ABO Rh O Negative Abiodun, indirect Negative [facility] Comment:Patient has previous antibody history Blood 09/09/2024 6:24 AM MANAGER OF CLINICAL 09/09/2024 7:19 AM MANAGER OF CLINICAL Narrative [facility] - 09/09/2024 8:51 AM MANAGER OF CLINICAL Has the patient had Daratumumab or Isatuximab in the past 6 months?->Unknown Anastasia Amaro MD LAB BLOOD BANK TEST ORDERA BLES Final Result Performing Organization Address [facility] Co de Phone Number [facility] Department [place] [address] * US Ob Limited (09/08/2024 10:29 AM MANAGER OF CLINICAL) Fetus# Fetus1 VIEWPOINT Placenta Details anterior VIEWPOINT Presentation Vertex; Maternal right- low VIEWPOINT Fetus# Fetus2 VIEWPOINT Placenta Details anterior VIEWPOINT Presentation Vertex; Maternal left- high (presenting) VIEWPOINT Anatomical Region Laterality Modality Abdomen N/A Ultrasound 09/08/2024 10:2 9 AM MANAGER OF CLINICAL Impressions 09/08/2024 11:25 AM MANAGER OF CLINICAL 1. Mo/di twin IUP at 32w 3d. [...] esult * nonstress test (09/06/2024 8:38 PM MANAGER OF CLINICAL) Narrative Anastasia Amaro MD - 09/06/2024 8:38 PM MANAGER OF CLINICAL Pauline Simms MD ? 09/06/2024 ??8:41 PM Baby A FHR Baseline: 125 Variability: moderate Accelerations: absent Decelerations: absent in last part of tracing, was initially having small variable decels in monitoring Reactive: Yes Baby B FHR Baseline: 130 Variability: moderate Accelerations: present Decelerations: absent Reactive: Yes 29 y.o. at 32w1d a/f preeclampsia with SF On monitor [id number] Contractions: absent I have reviewed NST and instructed RN to take off monitor Pauline Simms MD us Ana M Rogers MD OB GYNE ORDERABLES Fi nal Result * eGFR (09/06/2024 4:31 AM MANAGER OF CLINICAL) eGFR >90 >=60 mL/min/1. 73 m2 Comment: [...] reviewed 2021. Blood 09/06/2024 4:3 1 AM MANAGER OF CLINICAL 09/06/2024 4:53 AM MANAGER OF CLINICAL us Anastasia Amaro MD LAB BLOOD ORDERABLES Final Result [facility] Department [place] [address] * (ABNORMAL) Comprehensive metabolic panel (09/06/2024 4:31 AM MANAGER OF CLINICAL) Sodium 138 135 - 145 mmol/L Potassium, pl 3.6 3.3 - 4.9 mmol/L [facility] Chloride 105 97 - 110 mmol/L [facility] CO2 24 22 - 32 mmol/L [facility] Anion gap 9 2 - 15 mmol/L [facility] BUN 7 6 - 25 mg/dL [facility] Creatinine 0.63 0.60 - 1.10 mg/dL [facility] Glucose 62(L) 70 - 199 mg/dL [facility] Comment: Interpretive Data Fasting glucose >/= 126 [...] 2022. Calcium 9.3 8.5 - 10.3 mg/dL [facility] Bilirubin, total 0.3 0.1 - 1.2 mg/dL [facility] Protein, pl 6.6 6.5 - 8.5 g/dL [facility] Albumin 3.2(L) 3.5 - 5.0 g/dL [facility] Alk phos 118 40 - 130 Units/L [facility] ALT 23 7 - 45 Units/L [facility] AST 22 10 - 45 Units/L [facility] Blood 09/06/2024 4:31 AM MANAGER OF CLINICAL 09/06/2024 4:53 AM MANAGER OF CLINICAL us Anastasia Amaro MD LAB BLOOD ORDERABLES Final Result [facility] Department [place] [address] * (ABNORMAL) CBC without differential (09/06/2024 4:31 AM MANAGER OF CLINICAL) [facility] WBC 10.3(H) 3.8 - 9.9 K/cumm Hgb 11.7(L) 11.9 - 15.5 g/dL [facility] Hct 34.5(L) 35.6 - 45.5 % [facility] Plt 249 150 - 400 K/cumm [facility] MPV 11.1 9.1 - 12.3 fL [facility] RBC 3.96 3.90 - 5.20 M/cumm [facility] MCV 87.1 81.3 - 96.4 fL [facility] MCH 29.5 27.1 - 33.3 pg [facility] MCHC 33.9 32.3 - 35.7 g/dL [facility] RDW CV 13.6 11.1 - 14.9 % [facility] RDW SD 42.7 35.7 - 48.1 fL [facility] NRBC abs 0.00 0.00 - 0.01 K/cumm [facility] Blood 09/06/2024 4:31 AM MANAGER OF CLINICAL 09/06/2024 4:54 AM MANAGER OF CLINICAL us Anastasia Amaro MD LAB BLOOD ORDERABLES Final Result [facility] Department [place] [address] * Type and screen (09/06/2024 4:31 AM MANAGER OF CLINICAL) ABO Rh O Negative Abiodun, indirect Negative [facility] Comment:Patient has previous antibody history Blood 09/06/2024 4:3 1 AM MANAGER OF CLINICAL 09/06/2024 6:11 AM MANAGER OF CLINICAL [facility] - 09/06/2024 7:16 AM MANAGER OF CLINICAL Has the patient had Daratumumab or Isatuximab in the past 6 months?->Unknown us Anastasia Amaro MD LAB BLOOD BANK TEST ORDERA BLES Final Result Performing Organization Address [facility] Co de Phone Number [facility] Department of Laboratories [place], [place] [id number] * Group B streptococcal culture Vaginal/Rectal (09/03/2024 10:29 AM MANAGER OF CLINICAL) Report Final Report: Negative Vaginal/Rectal 09/03/2024 10 :29 AM MANAGER OF CLINICAL 09/03/2024 10:47 AM MANAGER OF CLINICAL Narrative [facility] - 09/07/2024 11:05 AM MANAGER OF CLINICAL Testing performed by [facility] ([phone]). us Joellen Julio MD LAB MICROBIOLOGY - GENERAL O RDERABLES Final Result Performing Organization Address [facility] de Phone Number [facility] Department [place] [address] * eGFR (09/03/2024 5:26 AM MANAGER OF CLINICAL) eGFR >90 >=60 mL/min/1. 73 m2 Comment: [...] last reviewed 2021. Blood 09/03/2024 5:26 AM MANAGER OF CLINICAL 09/03/2024 5:39 AM MANAGER OF CLINICAL Anastasia Amaro MD LAB BLOOD ORDERABLES Final Result [facility] Department [place] [address] * (ABNORMAL) Comprehensive metabolic panel (09/03/2024 5:26 AM MANAGER OF CLINICAL) Sodium 139 135 - 145 mmol/L Potassium, pl 4.0 3.3 - 4.9 mmol/L [facility] Chloride 105 97 - 110 mmol/L [facility] CO2 20(L) 22 - 32 mmol/L [facility] Anion gap 14 2 - 15 mmol/L [facility] BUN 8 6 - 25 mg/dL [facility] Creatinine 0.55(L) 0.60 - 1.10 mg/dL [facility] Glucose 68(L) 70 - 199 mg/dL [facility] Comment: Interpretive Data Fasting glucose >/= 126 [...] 2022. Calcium 9.3 8.5 - 10.3 mg/dL [facility] Bilirubin, total 0.3 0.1 - 1.2 mg/dL [facility] Protein, pl 6.4(L) 6.5 - 8.5 g/dL [facility] Albumin 3.3(L) 3.5 - 5.0 g/dL [facility] Alk phos 111 40 - 130 Units/L [facility] ALT 22 7 - 45 Units/L [facility] AST 24 10 - 45 Units/L [facility] Blood 09/03/2024 5:26 AM MANAGER OF CLINICAL 09/03/2024 5:39 AM MANAGER OF CLINICAL Anastasia Amaro MD LAB BLOOD ORDERABLES Final Result [facility] Department [place] [address] * (ABNORMAL) CBC without differential (09/03/2024 5:26 AM MANAGER OF CLINICAL) WBC 12.1(H) 3.8 - 9.9 K/cumm Hgb 11.7(L) 11.9 - 15.5 g/dL [facility] Hct 34.0(L) 35.6 - 45.5 % [facility] Plt 273 150 - 400 K/cumm [facility] MPV 11.0 9.1 - 12.3 fL [facility] RBC 3.97 3.90 - 5.20 M/cumm [facility] MCV 85.6 81.3 - 96.4 fL [facility] MCH 29.5 27.1 - 33.3 pg [facility] MCHC 34.4 32.3 - 35.7 g/dL [facility] RDW CV 13.3 11.1 - 14.9 % [facility] RDW SD 41.7 35.7 - 48.1 fL [facility] NRBC abs 0.00 0.00 - 0.01 K/cumm [facility] Blood 09/03/2024 5:26 AM MANAGER OF CLINICAL 09/03/2024 5:39 AM MANAGER OF CLINICAL Anastasia Amaro MD LAB BLOOD ORDERABLES Final Result Performing Organization Address City/[facility] [address] * Type and screen (09/03/2024 5:26 AM MANAGER OF CLINICAL) Pathologist [facility] Aboidun, indirect Negative Comment:Patient has previous antibody history ABO Rh O Negative [facility] Blood 09/03/2024 5:26 AM MANAGER OF CLINICAL 09/03/2024 5:32 AM MANAGER OF CLINICAL Narrative [facility] - 09/03/2024 6:27 AM MANAGER OF CLINICAL Has the patient had Daratumumab or Isatuximab in the past 6 months?->Unknown us Anastasia Amaro MD LAB BLOOD BANK TEST ORDERA BLES Final Result Performing Organization Address [facility] [address] * ECG 12 lead (09/02/2024 4:33 PM MANAGER OF CLINICAL) Ventricular Rate EKG/Min 110 BPM [facility] Atrial Rate 110 BPM [facility] NM-Interval (MSEC) 130 ms [facility] QRS-Interval (MSEC) 82 ms [facility] QT-Interval (MSEC) 340 ms [facility] QTc 460 ms [facility] P [place] 55 degrees [facility] R [place] 22 degrees [facility] T [place] 30 degrees [facility] Diagnosis Sinus tachycardia Otherwise normal ECG No previous ECGs available Confirmed by SAMANTA KAPLAN M.D ([id number]) on 09/06/2024 2:44:26 PM [facility] 09/02/2024 4:33 PM MANAGER OF CLINICAL 09/06/2024 2:44 PM MANAGER OF CLINICAL us Joellen Julio MD ECG ORDERABLES Final Result [facility] * eGFR (08/31/2024 6:20 AM MANAGER OF CLINICAL) eGFR >90 >=60 mL/min/1. 73 m2 Comment: [...] last reviewed 2021. Blood 08/31/2024 6:20 AM MANAGER OF CLINICAL 08/31/2024 7:25 AM MANAGER OF CLINICAL us Anastasia Amaro MD LAB BLOOD ORDERABLES Final Result [facility] [place] [address] * (ABNORMAL) Comprehensive metabolic panel (08/31/2024 6:20 AM MANAGER OF CLINICAL) Sodium 137 135 - 145 mmol/L Potassium, pl 3.7 3.3 - 4.9 mmol/L [facility] Chloride 103 97 - 110 mmol/L [facility] CO2 22 22 - 32 mmol/L [facility] Anion gap 12 2 - 15 mmol/L [facility] BUN 6 6 - 25 mg/dL [facility] Creatinine 0.56(L) 0.60 - 1.10 mg/dL [facility] Glucose 70 70 - 199 mg/dL [facility] Comment: Interpretive Data Fasting glucose >/= 126 [...] 2022. Calcium 9.5 8.5 - 10.3 mg/dL [facility] Bilirubin, total 0.2 0.1 - 1.2 mg/dL [facility] Protein, pl 6.4(L) 6.5 - 8.5 g/dL [facility] Albumin 3.2(L) 3.5 - 5.0 g/dL [facility] Alk phos 103 40 - 130 Units/L [facility] ALT 28 7 - 45 Units/L [facility] AST 25 10 - 45 Units/L [facility] Blood 08/31/2024 6:20 AM MANAGER OF CLINICAL 08/31/2024 7:25 AM MANAGER OF CLINICAL us Anastasia Amaro MD LAB BLOOD ORDERABLES Final Result [facility] [place] [address] * (ABNORMAL) CBC without differential (08/31/2024 6:20 AM MANAGER OF CLINICAL) Pathologist [facility] WBC 10.5(H) 3.8 - 9.9 K/cumm Hgb 11.5(L) 11.9 - 15.5 g/dL [facility] Hct 34.1(L) 35.6 - 45.5 % [facility] Plt 282 150 - 400 K/cumm [facility] MPV 10.9 9.1 - 12.3 fL [facility] RBC 3.93 3.90 - 5.20 M/cumm [facility] MCV 86.8 81.3 - 96.4 fL [facility] MCH 29.3 27.1 - 33.3 pg [facility] MCHC 33.7 32.3 - 35.7 g/dL [facility] RDW CV 13.7 11.1 - 14.9 % [facility] RDW SD 42.6 35.7 - 48.1 fL [facility] NRBC abs 0.00 0.00 - 0.01 K/cumm [facility] Blood 08/31/2024 6:20 AM MANAGER OF CLINICAL 08/31/2024 7:25 AM MANAGER OF CLINICAL us Anastasia Amaro MD LAB BLOOD ORDERABLES Final Result Performing Organization Address City/[facility]/ZIP Co de Phone Number [facility] [place] [address] * Type and screen (08/31/2024 6:20 AM MANAGER OF CLINICAL) ABO Rh O Negative Abiodun, indirect Negative [facility] Comment:Patient has previous antibody history Blood 08/31/2024 6:20 AM MANAGER OF CLINICAL 08/31/2024 7:41 AM MANAGER OF CLINICAL Narrative [facility] - 08/31/2024 8:26 AM MANAGER OF CLINICAL Has the patient had Daratumumab or Isatuximab in the past 6 months?->Unknown Anastasia Amaro MD LAB BLOOD BANK TEST ORDERA BLES Final Result Performing Organization Address City/[facility]/ZIP Co de Phone Number [facility] [place] [address] * nonstress test (08/29/2024 2:32 PM MANAGER OF CLINICAL) Narrative Nini Cortez MD - 08/29/2024 2:32 PM MANAGER OF CLINICAL Maureen Calix MD ? 08/29/2024 ??3:38 PM nonstress test Date/Time: 08/29/2024 2:32 PM Performed by: Maureen Calix MD Authorized by: Ana M Rogers MD ?? us Ana M Rogers MD OB GYNE ORDERABLES Fi nal Result * nonstress test (08/28/2024 7:47 PM MANAGER OF CLINICAL) Narrative Nini Cortez MD - 08/28/2024 7:47 PM MANAGER OF CLINICAL Francisca Yun MD ? 08/28/2024 ??7:48 PM A FHR Baseline: 120 Variability: moderate Reactive: Yes Contractions: absent B FHR Baseline: 130 Variability: moderate Reactive: Yes Contractions: absent Comments: No decels x2 I have reviewed NST and instructed RN to take off monitor Francisca Yun MD us Ana M Rogers MD OB GYNE ORDERABLES Fi nal Result * eGFR (08/28/2024 6:00 AM MANAGER OF CLINICAL) eGFR >90 >=60 mL/min/1. 73 m2 Comment: [...] last reviewed 2021. Blood 08/28/2024 6:00 AM MANAGER OF CLINICAL 08/28/2024 6:13 AM MANAGER OF CLINICAL us Anastasia Amaro MD LAB BLOOD ORDERABLES Final Result [facility] Department [place] [address] * (ABNORMAL) Comprehensive metabolic panel (08/28/2024 6:00 AM MANAGER OF CLINICAL) [facility] Sodium 137 135 - 145 mmol/L Potassium, pl 3.6 3.3 - 4.9 mmol/L [facility] Chloride 105 97 - 110 mmol/L [facility] CO2 21(L) 22 - 32 mmol/L [facility] Anion gap 11 2 - 15 mmol/L [facility] BUN 8 6 - 25 mg/dL [facility] Creatinine 0.52(L) 0.60 - 1.10 mg/dL [facility] Glucose 74 70 - 199 mg/dL [facility] Comment: Interpretive Data Fasting glucose >/= 126 [...] 2022. Calcium 9.3 8.5 - 10.3 mg/dL [facility] Bilirubin, total 0.2 0.1 - 1.2 mg/dL [facility] Protein, pl 6.2(L) 6.5 - 8.5 g/dL [facility] Albumin 3.2(L) 3.5 - 5.0 g/dL [facility] Alk phos 96 40 - 130 Units/L [facility] ALT 25 7 - 45 Units/L [facility] AST 22 10 - 45 Units/L [facility] Blood 08/28/2024 6:00 AM MANAGER OF CLINICAL 08/28/2024 6:13 AM MANAGER OF CLINICAL us Anastasia Amaro MD LAB BLOOD ORDERABLES Final Result [facility] Department [place] [address] * (ABNORMAL) CBC without differential (08/28/2024 6:00 AM MANAGER OF CLINICAL) WBC 10.3(H) 3.8 - 9.9 K/cumm Hgb 11.2(L) 11.9 - 15.5 g/dL [facility] Hct 33.0(L) 35.6 - 45.5 % [facility] Plt 289 150 - 400 K/cumm [facility] MPV 10.7 9.1 - 12.3 fL [facility] RBC 3.78(L) 3.90 - 5.20 M/cumm [facility] MCV 87.3 81.3 - 96.4 fL [facility] MCH 29.6 27.1 - 33.3 pg [facility] MCHC 33.9 32.3 - 35.7 g/dL [facility] RDW CV 13.7 11.1 - 14.9 % [facility] RDW SD 43.6 35.7 - 48.1 fL [facility] NRBC abs 0.00 0.00 - 0.01 K/cumm [facility] Blood 08/28/2024 6:00 AM MANAGER OF CLINICAL 08/28/2024 6:20 AM MANAGER OF CLINICAL Anastasia Amaro MD LAB BLOOD ORDERABLES Final Result Performing Organization Address [facility] de Phone Number [facility] [place] [address] * Type and screen (08/28/2024 6:00 AM MANAGER OF CLINICAL) [facility] ABO Rh O Negative Comment:Patient has previous antibody history Abiodun, indirect Negative [facility] Blood 08/28/2024 6:00 AM MANAGER OF CLINICAL 08/28/2024 6:54 AM MANAGER OF CLINICAL Narrative [facility] - 08/28/2024 7:53 AM MANAGER OF CLINICAL Has the patient had Daratumumab or Isatuximab in the past 6 months?->Unknown Anastasia Amaro MD LAB BLOOD BANK TEST ORDERA BLES Final Result Performing Organization Address [facility] de Phone Number [facility] [place] [address] * eGFR (08/25/2024 6:19 AM MANAGER OF CLINICAL) [facility] eGFR >90 >=60 mL/min/1. 73 [...] last reviewed 2021. Blood 08/25/2024 6:19 AM MANAGER OF CLINICAL 08/25/2024 6:33 AM MANAGER OF CLINICAL us Anastasia Amaro MD LAB BLOOD ORDERABLES Final Result [facility] Department [place] [address] * (ABNORMAL) Comprehensive metabolic panel (08/25/2024 6:19 AM MANAGER OF CLINICAL) Sodium 139 135 - 145 mmol/L Potassium, pl 3.5 3.3 - 4.9 mmol/L [facility] Chloride 105 97 - 110 mmol/L [facility] CO2 22 22 - 32 mmol/L [facility] Anion gap 12 2 - 15 mmol/L [facility] BUN 6 6 - 25 mg/dL [facility] Creatinine 0.53(L) 0.60 - 1.10 mg/dL [facility] Glucose 70 70 - 199 mg/dL [facility] Comment: Interpretive Data Fasting glucose >/= 126 [...] 2022. Calcium 9.2 8.5 - 10.3 mg/dL [facility] Bilirubin, total 0.2 0.1 - 1.2 mg/dL [facility] Protein, pl 6.4(L) 6.5 - 8.5 g/dL [facility] Albumin 3.2(L) 3.5 - 5.0 g/dL [facility] Alk phos 92 40 - 130 Units/L [facility] ALT 22 7 - 45 Units/L [facility] AST 22 10 - 45 Units/L [facility] Blood 08/25/2024 6:19 AM MANAGER OF CLINICAL 08/25/2024 6:33 AM MANAGER OF CLINICAL us Anastasia Amaro MD LAB BLOOD ORDERABLES Final Result [facility] Department [place] [address] * (ABNORMAL) CBC without differential (08/25/2024 6:19 AM MANAGER OF CLINICAL) WBC 10.5(H) 3.8 - 9.9 K/cumm Hgb 11.4(L) 11.9 - 15.5 g/dL [facility] Hct 33.4(L) 35.6 - 45.5 % [facility] Plt 299 150 - 400 K/cumm [facility] MPV 10.6 9.1 - 12.3 fL [facility] RBC 3.90 3.90 - 5.20 M/cumm [facility] MCV 85.6 81.3 - 96.4 fL [facility] MCH 29.2 27.1 - 33.3 pg [facility] MCHC 34.1 32.3 - 35.7 g/dL [facility] RDW CV 13.4 11.1 - 14.9 % [facility] RDW SD 41.7 35.7 - 48.1 fL [facility] NRBC abs 0.00 0.00 - 0.01 K/cumm [facility] Blood 08/25/2024 6:19 AM MANAGER OF CLINICAL 08/25/2024 6:32 AM MANAGER OF CLINICAL Anastasia Amaro MD LAB BLOOD ORDERABLES Final Result [facility] Department [place] [address] * Type and screen (08/25/2024 6:19 AM MANAGER OF CLINICAL) Abiodun, indirect Negative Comment:Patient has previous antibody history ABO Rh O Negative [facility] Blood 08/25/2024 6:19 AM MANAGER OF CLINICAL 08/25/2024 7:06 AM MANAGER OF CLINICAL [facility] - 08/25/2024 8:01 AM MANAGER OF CLINICAL Has the patient had Daratumumab or Isatuximab in the past 6 months?->Unknown us Anastasia Amaro MD LAB BLOOD BANK TEST ORDERA BLES Final Result [facility] Department [place] [address] * US Ob Follow Up (08/24/2024 9:37 AM MANAGER OF CLINICAL) Pathologist [facility] Fetus# Fetus1 VIEWPOINT Estimated Weight 1,348 g&grams VIEWPOINT Placenta Details anterior VIEWPOINT Presentation Vertex; Maternal right- low VIEWPOINT Fetus# Fetus2 VIEWPOINT Estimated Weight 1,784 g&grams VIEWPOINT Placenta Details anterior VIEWPOINT Presentation Vertex; Maternal left- high (presenting) VIEWPOINT Anatomical Region Laterality Modality Abdomen N/A Ultrasound 08/24/2024 9:37 AM MANAGER OF CLINICAL Impressions 08/24/2024 2:06 PM MANAGER OF CLINICAL 1. Presumed Mo/Di twin IUP at 30w [...] Edite d * eGFR (08/22/2024 6:02 AM MANAGER OF CLINICAL) eGFR >90 >=60 mL/min/1. 73 m2 Comment: [...] last reviewed 2021. Blood 08/22/2024 6:02 AM MANAGER OF CLINICAL 08/22/2024 6:18 AM MANAGER OF CLINICAL Anastasia Amaro MD LAB BLOOD ORDERABLES Final Result Performing Organization Address City/State/ZIP Co wv Phone Number [facility] Department [place] [address] * (ABNORMAL) Comprehensive metabolic panel (08/22/2024 6:02 AM MANAGER OF CLINICAL) [facility] Signature Sodium 138 135 - 145 mmol/L Potassium, pl 3.7 3.3 - 4.9 mmol/L [facility] Chloride 104 97 - 110 mmol/L [facility] CO2 23 22 - 32 mmol/L [facility] Anion gap 11 2 - 15 mmol/L [facility] BUN 7 6 - 25 mg/dL [facility] Creatinine 0.53(L) 0.60 - 1.10 mg/dL [facility] Glucose 72 70 - 199 mg/dL [facility] Comment: Interpretive Data Fasting glucose >/= 126 [...] 2022. Calcium 9.3 8.5 - 10.3 mg/dL [facility] Bilirubin, total 0.2 0.1 - 1.2 mg/dL [facility] Protein, pl 6.6 6.5 - 8.5 g/dL [facility] Albumin 3.2(L) 3.5 - 5.0 g/dL [facility] Alk phos 90 40 - 130 Units/L [facility] ALT 19 7 - 45 Units/L [facility] AST 18 10 - 45 Units/L [facility] Blood 08/22/2024 6:02 AM MANAGER OF CLINICAL 08/22/2024 6:18 AM MANAGER OF CLINICAL us Anastasia Amaro MD LAB BLOOD ORDERABLES Final Result [facility] Department of Laboratories [place], [place] [id number] * (ABNORMAL) CBC without differential (08/22/2024 6:02 AM MANAGER OF CLINICAL) WBC 12.2(H) 3.8 - 9.9 K/cumm Hgb 11.8(L) 11.9 - 15.5 g/dL [facility] Hct 34.4(L) 35.6 - 45.5 % [facility] Plt 277 150 - 400 K/cumm [facility] MPV 10.4 9.1 - 12.3 fL [facility] RBC 4.02 3.90 - 5.20 M/cumm [facility] MCV 85.6 81.3 - 96.4 fL [facility] MCH 29.4 27.1 - 33.3 pg [facility] MCHC 34.3 32.3 - 35.7 g/dL [facility] RDW CV 13.6 11.1 - 14.9 % [facility] RDW SD 42.4 35.7 - 48.1 fL [facility] NRBC abs 0.00 0.00 - 0.01 K/cumm [facility] Blood 08/22/2024 6:02 AM MANAGER OF CLINICAL 08/22/2024 6:18 AM MANAGER OF CLINICAL Anastasia Amaro MD LAB BLOOD ORDERABLES Final Result Performing Organization Address [facility] de Phone Number [facility] Department [place] [address] * Type and screen (08/22/2024 6:02 AM MANAGER OF CLINICAL) Pathologist [facility] Abiodun, indirect Negative Comment:Patient has previous antibody history ABO Rh O Negative [facility] Blood 08/22/2024 6:02 AM MANAGER OF CLINICAL 08/22/2024 6:24 AM MANAGER OF CLINICAL Narrative [facility] - 08/22/2024 7:25 AM MANAGER OF CLINICAL Has the patient had Daratumumab or Isatuximab in the past 6 months?->Unknown Anastasia Amaro MD LAB BLOOD BANK TEST ORDERA BLES Final Result Performing Organization Address [facility] de Phone Number [facility] Department [place] [address] * eGFR (08/19/2024 6:25 AM MANAGER OF CLINICAL) [facility] eGFR >90 >=60 mL/min/1. 73 [...] last reviewed 2021. Blood 08/19/2024 6:25 AM MANAGER OF CLINICAL 08/19/2024 7:23 AM MANAGER OF CLINICAL us Anastasia Amaro MD LAB BLOOD ORDERABLES Final Result [facility] Department [place] [address] * (ABNORMAL) Comprehensive metabolic panel (08/19/2024 6:25 AM MANAGER OF CLINICAL) Sodium 138 135 - 145 mmol/L Potassium, pl 3.7 3.3 - 4.9 mmol/L [facility] Chloride 105 97 - 110 mmol/L [facility] CO2 23 22 - 32 mmol/L [facility] Anion gap 10 2 - 15 mmol/L [facility] BUN 7 6 - 25 mg/dL [facility] Creatinine 0.54(L) 0.60 - 1.10 mg/dL [facility] Glucose 68(L) 70 - 199 mg/dL [facility] Comment: Interpretive Data Fasting glucose >/= 126 [...] 2022. Calcium 9.3 8.5 - 10.3 mg/dL [facility] Bilirubin, total 0.2 0.1 - 1.2 mg/dL [facility] Protein, pl 6.3(L) 6.5 - 8.5 g/dL [facility] Albumin 3.0(L) 3.5 - 5.0 g/dL [facility] Alk phos 88 40 - 130 Units/L [facility] ALT 13 7 - 45 Units/L [facility] AST 18 10 - 45 Units/L [facility] Blood 08/19/2024 6:25 AM MANAGER OF CLINICAL 08/19/2024 7:23 AM MANAGER OF CLINICAL us Anastasia Amaro MD LAB BLOOD ORDERABLES Final Result [facility] Department [place] [address] * (ABNORMAL) CBC without differential (08/19/2024 6:25 AM MANAGER OF CLINICAL) WBC 11.2(H) 3.8 - 9.9 K/cumm Hgb 11.3(L) 11.9 - 15.5 g/dL [facility] Hct 33.9(L) 35.6 - 45.5 % [facility] Plt 249 150 - 400 K/cumm [facility] MPV 10.6 9.1 - 12.3 fL [facility] RBC 3.89(L) 3.90 - 5.20 M/cumm [facility] MCV 87.1 81.3 - 96.4 fL [facility] MCH 29.0 27.1 - 33.3 pg [facility] MCHC 33.3 32.3 - 35.7 g/dL [facility] RDW CV 13.4 11.1 - 14.9 % [facility] RDW SD 42.5 35.7 - 48.1 fL [facility] NRBC abs 0.00 0.00 - 0.01 K/cumm [facility] Blood 08/19/2024 6:25 AM MANAGER OF CLINICAL 08/19/2024 7:23 AM MANAGER OF CLINICAL us Anastasia Amaro MD LAB BLOOD ORDERABLES Final Result Performing Organization Address [facility] de Phone Number [facility] [place] [address] * Type and screen (08/19/2024 6:25 AM MANAGER OF CLINICAL) Abiodun, indirect Negative ABO Rh O Negative [facility] Comment:Patient has previous antibody history Blood 08/19/2024 6:25 AM MANAGER OF CLINICAL 08/19/2024 7:31 AM MANAGER OF CLINICAL Narrative [facility] - 08/19/2024 8:22 AM MANAGER OF CLINICAL Has the patient had Daratumumab or Isatuximab in the past 6 months?->Unknown Anastasia Amaro MD LAB BLOOD BANK TEST ORDERA BLES Final Result Performing Organization Address [facility] de Phone Number [facility] [place] [address] * US Ob Limited (08/16/2024 8:35 AM MANAGER OF CLINICAL) Fetus# Fetus1 VIEWPOINT Placenta Details anterior VIEWPOINT Presentation Transverse, maternal right-low VIEWPOINT Fetus# Fetus2 VIEWPOINT Placenta Details anterior VIEWPOINT Presentation Vertex; Maternal left- high VIEWPOINT Anatomical Region Laterality Modality Abdomen N/A Ultrasound 08/16/2024 8:36 AM MANAGER OF CLINICAL Impressions 08/16/2024 2:23 PM MANAGER OF CLINICAL Diamniotic (presumed MCDA) TIUP at 29w1d who is admitted for preE with severe features who presents for ??TTTS screen.Chorionicity was not fully assessed but was previously determined to be monochorionic by the [facility] MFM practice. Anatomic surveys were also [...] previously determined to be monochorionic by the [facility] MFMpractice. Anatomic surveys were also completed [...] Result * Antibody identification (08/16/2024 7:34 AM MANAGER OF CLINICAL) Pathologist [facility] Antibody ID 1 Passive Anti-D Blood 08/16/2024 7:3 4 AM MANAGER OF CLINICAL 08/16/2024 7:34 AM MANAGER OF CLINICAL Anastasia Amaro MD LAB BLOOD BANK TEST ORDERA BLES Final Result [facility] [place] [address] * eGFR (08/16/2024 6:15 AM MANAGER OF CLINICAL) Pathologist [facility] eGFR >90 >=60 mL/min/1. 73 m2 [...] last reviewed 2021. Blood 08/16/2024 6:15 AM MANAGER OF CLINICAL 08/16/2024 6:29 AM MANAGER OF CLINICAL us Anastasia Amaro MD LAB BLOOD ORDERABLES Final Result [facility] Department [place] [address] * (ABNORMAL) Comprehensive metabolic panel (08/16/2024 6:15 AM MANAGER OF CLINICAL) Sodium 139 135 - 145 mmol/L Potassium, pl 3.4 3.3 - 4.9 mmol/L [facility] Chloride 105 97 - 110 mmol/L [facility] CO2 23 22 - 32 mmol/L [facility] Anion gap 11 2 - 15 mmol/L [facility] BUN 8 6 - 25 mg/dL [facility] Creatinine 0.51(L) 0.60 - 1.10 mg/dL [facility] Glucose 72 70 - 199 mg/dL [facility] Comment: Interpretive Data Fasting glucose >/= 126 [...] 2022. Calcium 9.2 8.5 - 10.3 mg/dL [facility] Bilirubin, total 0.2 0.1 - 1.2 mg/dL [facility] Protein, pl 6.4(L) 6.5 - 8.5 g/dL [facility] Albumin 3.2(L) 3.5 - 5.0 g/dL [facility] Alk phos 86 40 - 130 Units/L [facility] ALT 16 7 - 45 Units/L [facility] AST 16 10 - 45 Units/L [facility] Blood 08/16/2024 6:15 AM MANAGER OF CLINICAL 08/16/2024 6:29 AM MANAGER OF CLINICAL us Anastasia Amaro MD LAB BLOOD ORDERABLES Final Result [facility] Department [place] [address] * (ABNORMAL) CBC without differential (08/16/2024 6:15 AM MANAGER OF CLINICAL) WBC 10.9(H) 3.8 - 9.9 K/cumm Hgb 11.6(L) 11.9 - 15.5 g/dL [facility] Hct 34.0(L) 35.6 - 45.5 % [facility] Plt 257 150 - 400 K/cumm [facility] MPV 10.4 9.1 - 12.3 fL [facility] RBC 3.95 3.90 - 5.20 M/cumm [facility] MCV 86.1 81.3 - 96.4 fL [facility] MCH 29.4 27.1 - 33.3 pg [facility] MCHC 34.1 32.3 - 35.7 g/dL [facility] RDW CV 13.3 11.1 - 14.9 % [facility] RDW SD 41.5 35.7 - 48.1 fL [facility] NRBC abs 0.00 0.00 - 0.01 K/cumm [facility] Blood 08/16/2024 6:15 AM MANAGER OF CLINICAL 08/16/2024 6:30 AM MANAGER OF CLINICAL Anastasia Amaro MD LAB BLOOD ORDERABLES Final Result Performing Organization Address [facility] de Phone Number [facility] [place] [address] * (ABNORMAL) Type and screen (08/16/2024 6:15 AM MANAGER OF CLINICAL) Abiodun, indirect Positive(A) ABO Rh O Negative [facility] Blood 08/16/2024 6:15 AM MANAGER OF CLINICAL 08/16/2024 6:25 AM MANAGER OF CLINICAL Narrative [facility] - 08/16/2024 7:34 AM MANAGER OF CLINICAL Has the patient had Daratumumab or Isatuximab in the past 6 months?->Unknown Anastasia Amaro MD LAB BLOOD BANK TEST ORDERA BLES Final Result Performing Organization Address [facility] de Phone Number [facility] [place] [address] * Thyroid Function [facility] (08/16/2024 6:15 AM MANAGER OF CLINICAL) TSH 3.83 0.30 - 4.20 mcIUnit/mL Blood 08/16/2024 6:15 AM MANAGER OF CLINICAL 08/16/2024 6:29 AM MANAGER OF CLINICAL Anastasia Amaro MD LAB BLOOD ORDERABLES Final Result Performing Organization Address [facility] de Phone Number [facility] [place] [address] * POCT glucose (08/14/2024 3:06 PM MANAGER OF CLINICAL) Glucose, POC 103 70 - 199 mg/dL Comment:Post Meal Glucose comment 1 [facility] Blood 08/14/2024 3:06 PM MANAGER OF CLINICAL 08/14/2024 3:06 PM MANAGER OF CLINICAL Anastasia Amaro MD LAB POCT ORDERABLES - JELENA CE Final Result [facility] Department [place] [address] * ECG 12 lead (08/13/2024 9:02 AM MANAGER OF CLINICAL) Pathologist [facility] Ventricular Rate EKG/Min 122 BPM [facility] Atrial Rate 122 BPM [facility] NM-Interval (MSEC) 132 ms [facility] QRS-Interval (MSEC) 80 ms [facility] QT-Interval (MSEC) 324 ms [facility] QTc 461 ms [facility] P [place] 49 degrees [facility] R [place] 18 degrees [facility] T [place] 29 degrees [facility] Diagnosis Sinus tachycardia Otherwise normal ECG When compared with ECG of 04-AUG-2024 17:45, No significant change was found Confirmed by SAMANTA KAPLAN M.D ([id number]) on 08/15/2024 12:21:02 PM [facility] 08/13/2024 9:02 AM MANAGER OF CLINICAL 08/15/2024 12:21 PM MANAGER OF CLINICAL us Anastasia Amaro MD ECG ORDERABLES Final Resu lt [facility] * Antibody identification (08/13/2024 7:42 AM MANAGER OF CLINICAL) Pathologist [facility] Antibody ID 1 Passive Anti-D Blood 08/13/2024 7:42 AM MANAGER OF CLINICAL 08/13/2024 7:42 AM MANAGER OF CLINICAL us Anastasia Amaro MD LAB BLOOD BANK TEST ORDERA BLES Final Result Performing Organization Address City/[facility]/ZIP Co de Phone Number [facility] [place] [address] * eGFR (08/13/2024 5:44 AM MANAGER OF CLINICAL) eGFR >90 >=60 mL/min/1. 73 m2 Comment: [...] last reviewed 2021. Blood 08/13/2024 5:44 AM MANAGER OF CLINICAL 08/13/2024 6:05 AM MANAGER OF CLINICAL us Anastasia Amaro MD LAB BLOOD ORDERABLES Final Result [facility] Department of [place] [place], [place] [id number] * (ABNORMAL) Comprehensive metabolic panel (08/13/2024 5:44 AM MANAGER OF CLINICAL) Sodium 137 135 - 145 mmol/L Potassium, pl 3.7 3.3 - 4.9 mmol/L [facility] Chloride 104 97 - 110 mmol/L [facility] CO2 22 22 - 32 mmol/L [facility] Anion gap 11 2 - 15 mmol/L [facility] BUN 8 6 - 25 mg/dL [facility] Creatinine 0.49(L) 0.60 - 1.10 mg/dL [facility] Glucose 74 70 - 199 mg/dL [facility] Comment: Interpretive Data Fasting glucose >/= 126 [...] 2022. Calcium 9.4 8.5 - 10.3 mg/dL [facility] Bilirubin, total 0.3 0.1 - 1.2 mg/dL [facility] Protein, pl 6.5 6.5 - 8.5 g/dL [facility] Albumin 3.3(L) 3.5 - 5.0 g/dL [facility] Alk phos 85 40 - 130 Units/L [facility] ALT 21 7 - 45 Units/L [facility] AST 19 10 - 45 Units/L [facility] Blood 08/13/2024 5:44 AM MANAGER OF CLINICAL 08/13/2024 6:05 AM MANAGER OF CLINICAL us Anastasia Amaro MD LAB BLOOD ORDERABLES Final Result [facility] Department [place] [address] * (ABNORMAL) CBC without differential (08/13/2024 5:44 AM MANAGER OF CLINICAL) Pathologist [facility] WBC 12.4(H) 3.8 - 9.9 K/cumm Hgb 11.8(L) 11.9 - 15.5 g/dL [facility] Hct 34.4(L) 35.6 - 45.5 % [facility] Plt 295 150 - 400 K/cumm [facility] MPV 10.3 9.1 - 12.3 fL [facility] RBC 3.93 3.90 - 5.20 M/cumm [facility] MCV 87.5 81.3 - 96.4 fL [facility] MCH 30.0 27.1 - 33.3 pg [facility] MCHC 34.3 32.3 - 35.7 g/dL [facility] RDW CV 13.6 11.1 - 14.9 % [facility] RDW SD 43.5 35.7 - 48.1 fL [facility] NRBC abs 0.00 0.00 - 0.01 K/cumm [facility] Blood 08/13/2024 5:44 AM MANAGER OF CLINICAL 08/13/2024 6:05 AM MANAGER OF CLINICAL Anastasia Amaro MD LAB BLOOD ORDERABLES Final Result Performing Organization Address City/[facility]/ZIP Co de Phone Number [facility] [place] [address] * (ABNORMAL) Type and screen (08/13/2024 5:44 AM MANAGER OF CLINICAL) [facility] ABO Rh O Negative Abiodun, indirect Positive(A) [facility] Blood 08/13/2024 5:44 AM MANAGER OF CLINICAL 08/13/2024 6:19 AM MANAGER OF CLINICAL Narrative [facility] - 08/13/2024 7:42 AM MANAGER OF CLINICAL Has the patient had Daratumumab or Isatuximab in the past 6 months?->Unknown Anastasia Amaro MD LAB BLOOD BANK TEST ORDERA BLES Final Result Performing Organization Address City/[facility]/ZIP Co de Phone Number [facility] [place] [address] * RPR Blood (08/13/2024 5:44 AM MANAGER OF CLINICAL) RPR Nonreactive Nonreactive Blood 08/13/2024 5:44 AM MANAGER OF CLINICAL 08/13/2024 6:05 AM MANAGER OF CLINICAL Anastasia Amaro MD LAB MICROBIOLOGY - GENERAL ORDERABLES Final Result Performing Organization Address [facility] [place] [address] * HIV 1/2 Antibody plus p24 Antigen Blood (08/13/2024 5:44 AM MANAGER OF CLINICAL) Pathologist [facility] HIV 1/2 ab + p24 ag Nonreactive Nonreactive Comment:Nonreactive for HIV- 1 antigen and HIV-1/HIV-2 antibodies. No laboratory evidence of HIV infection. If acute HIV infection is suspected, consider testing for HIV-1 RNA. Current interpretive data was last revised on 22. Blood 08/13/2024 5:44 AM MANAGER OF CLINICAL 08/13/2024 6:05 AM MANAGER OF CLINICAL Anastasia Amaro MD LAB MICROBIOLOGY - GENERAL ORDERABLES Final Result Performing Organization Address [facility] [place] [address] * GTT 50gm 1hr gestational screen (08/12/2024 11:29 AM MANAGER OF CLINICAL) GTT 50g gest screen 106 <=140 mg/dL [...] on 2020. Blood 08/12/2024 11:2 9 AM MANAGER OF CLINICAL 08/12/2024 11:41 AM MANAGER OF CLINICAL Anastasia Amaro MD LAB BLOOD ORDERABLES Final Result Performing Organization Address [facility] de Phone Number [facility] [place] [address] * Antibody identification (08/10/2024 7:02 AM MANAGER OF CLINICAL) [facility] Antibody ID 1 Passive Anti-D Blood 08/10/2024 7:02 AM MANAGER OF CLINICAL 08/10/2024 7:02 AM MANAGER OF CLINICAL Anastasia Amaro MD LAB BLOOD BANK TEST ORDERA BLES Final Result Performing Organization Address [facility] de Phone Number [facility] [place] [address] * eGFR (08/10/2024 4:49 AM MANAGER OF CLINICAL) [facility] eGFR >90 >=60 mL/min/1. 73 [...] last reviewed 2021. Blood 08/10/2024 4:49 AM MANAGER OF CLINICAL 08/10/2024 5:31 AM MANAGER OF CLINICAL us Anastasia Amaro MD LAB BLOOD ORDERABLES Final Result [facility] Department [place] [address] * (ABNORMAL) Comprehensive metabolic panel (08/10/2024 4:49 AM MANAGER OF CLINICAL) Sodium 135 135 - 145 mmol/L Potassium, pl 3.5 3.3 - 4.9 mmol/L [facility] Chloride 102 97 - 110 mmol/L [facility] CO2 22 22 - 32 mmol/L [facility] Anion gap 11 2 - 15 mmol/L [facility] BUN 9 6 - 25 mg/dL [facility] Creatinine 0.51(L) 0.60 - 1.10 mg/dL [facility] Glucose 79 70 - 199 mg/dL [facility] Comment: Interpretive Data Fasting glucose >/= 126 [...] Calcium 9.2 8.5 - 10.3 mg/dL [facility] Bilirubin, total 0.2 0.1 - 1.2 mg/dL [facility] Protein, pl 6.6 6.5 - 8.5 g/dL [facility] Albumin 3.2(L) 3.5 - 5.0 g/dL [facility] Alk phos 85 40 - 130 Units/L [facility] ALT 22 7 - 45 Units/L [facility] AST 19 10 - 45 Units/L [facility] Blood 08/10/2024 4:49 AM MANAGER OF CLINICAL 08/10/2024 5:31 AM MANAGER OF CLINICAL us Anastasia Amaro MD LAB BLOOD ORDERABLES Final Result [facility] Department [place] [address] * (ABNORMAL) CBC without differential (08/10/2024 4:49 AM MANAGER OF CLINICAL) [facility] Signature WBC 11.7(H) 3.8 - 9.9 K/cumm Hgb 11.7(L) 11.9 - 15.5 g/dL [facility] Hct 35.0(L) 35.6 - 45.5 % [facility] Plt 293 150 - 400 K/cumm [facility] MPV 10.5 9.1 - 12.3 fL [facility] RBC 4.00 3.90 - 5.20 M/cumm [facility] MCV 87.5 81.3 - 96.4 fL [facility] MCH 29.3 27.1 - 33.3 pg [facility] MCHC 33.4 32.3 - 35.7 g/dL [facility] RDW CV 13.7 11.1 - 14.9 % [facility] RDW SD 43.8 35.7 - 48.1 fL [facility] NRBC abs 0.00 0.00 - 0.01 K/cumm [facility] Blood 08/10/2024 4:49 AM MANAGER OF CLINICAL 08/10/2024 5:42 AM MANAGER OF CLINICAL Anastasia Amaro MD LAB BLOOD ORDERABLES Final Result [facility] Department [place] [address] * (ABNORMAL) Type and screen (08/10/2024 4:49 AM MANAGER OF CLINICAL) Abiodun, indirect Positive(A) ABO Rh O Negative [facility] Blood 08/10/2024 4:49 AM MANAGER OF CLINICAL 08/10/2024 6:04 AM MANAGER OF CLINICAL Narrative [facility] - 08/10/2024 7:02 AM MANAGER OF CLINICAL Has the patient had Daratumumab or Isatuximab in the past 6 months?->Unknown us Anastasia Amaro MD LAB BLOOD BANK TEST ORDERA BLES Final Result [facility] Department [place] [address] * US Ob 14 Weeks Or Over (08/09/2024 9:47 AM MANAGER OF CLINICAL) Fetus# Fetus1 VIEWPOINT Placenta Details anterior VIEWPOINT Presentation Vertex; Maternal right- low VIEWPOINT Fetus# Fetus2 VIEWPOINT Placenta Details anterior VIEWPOINT Presentation Vertex; Maternal left- high VIEWPOINT Anatomical Region Laterality Modality Abdomen N/A Ultrasound 08/09/2024 9:50 AM MANAGER OF CLINICAL Impressions 08/09/2024 11:52 AM MANAGER OF CLINICAL 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 Chorionicity was not fully assessed but was previously determined to be monochorionic by the [facility] MFM practice. Anatomic surveys were also [...] waspreviously determined to be monochorionic by the [facility] MFM practice.Anatomic surveys were also completed [...] Result * Antibody identification (08/07/2024 6:51 AM MANAGER OF CLINICAL) Antibody ID 1 Passive Anti-D Blood 08/07/2024 6:5 1 AM MANAGER OF CLINICAL 08/07/2024 6:51 AM MANAGER OF CLINICAL us Anastasia Amaro MD LAB BLOOD BANK TEST ORDERA BLES Final Result [facility] [place] [address] * eGFR (08/07/2024 5:00 AM MANAGER OF CLINICAL) Pathologist [facility] eGFR >90 >=60 mL/min/1. 73 m2 [...] last reviewed 2021. Blood 08/07/2024 5:00 AM MANAGER OF CLINICAL 08/07/2024 4:56 AM MANAGER OF CLINICAL us Anastasia Amaro MD LAB BLOOD ORDERABLES Final Result Performing Organization Address City/State/[facility] wv Phone Number [facility] Department [place] [address] * (ABNORMAL) Comprehensive metabolic panel (08/07/2024 5:00 AM MANAGER OF CLINICAL) Pathologist [facility] Sodium 138 135 - 145 mmol/L Potassium, pl 3.6 3.3 - 4.9 mmol/L [facility] Chloride 105 97 - 110 mmol/L [facility] CO2 22 22 - 32 mmol/L [facility] Anion gap 11 2 - 15 mmol/L [facility] BUN 7 6 - 25 mg/dL [facility] Creatinine 0.47(L) 0.60 - 1.10 mg/dL [facility] Glucose 84 70 - 199 mg/dL [facility] Comment: Interpretive Data Fasting glucose >/= 126 [...] 2022. Calcium 9.3 8.5 - 10.3 mg/dL [facility] Bilirubin, total 0.2 0.1 - 1.2 mg/dL [facility] Protein, pl 6.3(L) 6.5 - 8.5 g/dL [facility] Albumin 3.1(L) 3.5 - 5.0 g/dL [facility] Alk phos 80 40 - 130 Units/L [facility] ALT 26 7 - 45 Units/L [facility] AST 16 10 - 45 Units/L [facility] Blood 08/07/2024 5:00 AM MANAGER OF CLINICAL 08/07/2024 4:56 AM MANAGER OF CLINICAL us Anastasia Amaro MD LAB BLOOD ORDERABLES Final Result [facility] Department [place] [address] * (ABNORMAL) CBC without differential (08/07/2024 5:00 AM MANAGER OF CLINICAL) WBC 10.2(H) 3.8 - 9.9 K/cumm Hgb 12.0 11.9 - 15.5 g/dL [facility] Hct 35.0(L) 35.6 - 45.5 % [facility] Plt 261 150 - 400 K/cumm [facility] MPV 10.2 9.1 - 12.3 fL [facility] RBC 4.02 3.90 - 5.20 M/cumm [facility] MCV 87.1 81.3 - 96.4 fL [facility] MCH 29.9 27.1 - 33.3 pg [facility] MCHC 34.3 32.3 - 35.7 g/dL [facility] RDW CV 13.8 11.1 - 14.9 % [facility] RDW SD 44.4 35.7 - 48.1 fL [facility] NRBC abs 0.00 0.00 - 0.01 K/cumm [facility] Blood 08/07/2024 5:00 AM MANAGER OF CLINICAL 08/07/2024 4:56 AM MANAGER OF CLINICAL us Anastasia Amaro MD LAB BLOOD ORDERABLES Final Result Performing Organization Address City/[facility]/[place] Co de Phone Number [facility] Department [place] [address] * (ABNORMAL) Type and screen (08/07/2024 4:45 AM MANAGER OF CLINICAL) Abiodun, indirect Positive(A) ABO Rh O Negative [facility] Blood 08/07/2024 4:45 AM MANAGER OF CLINICAL 08/07/2024 5:12 AM MANAGER OF CLINICAL Narrative [facility] - 08/07/2024 6:51 AM MANAGER OF CLINICAL Has the patient had Daratumumab or Isatuximab in the past 6 months?->Unknown Anastasia Amaro MD LAB BLOOD BANK TEST ORDERA BLES Final Result [facility] Department [place] [address] * CT Chest PE (CTA) W Contrast [...] panel Nasopharyngeal (08/04/2024 6:28 PM CDT) Pathologist [facility] Influenza A RNA Not Detected Not Detected Influenza B RNA Not Detected Not Detected [facility] RSV RNA Not Detected Not Detected [facility] COVID-19 RNA Not Detected Not Detected [facility] Coronavirus 229E RNA Not Detected Not Detected [facility] Coronavirus HKU1 RNA Not Detected Not Detected [facility] Coronavirus NL63 RNA Not Detected Not Detected [facility] Coronavirus OC43 RNA Not Detected Not Detected [facility] Adenovirus DNA Not Detected Not Detected [facility] Metapneumovirus RNA Not Detected Not Detected [facility] Rhinovirus/Enterov irus RNA Not Detected Not Detected [facility] Parainfluenza 1 RNA Not Detected Not Detected [facility] Parainfluenza 2 RNA Not Detected Not Detected [facility] Parainfluenza 3 RNA Not Detected Not Detected [facility] Parainfluenza 4 RNA Not Detected Not Detected [facility] B. pertussis DNA Not Detected Not Detected [facility] B. parapertussis DNA Not Detected Not Detected [facility] C. pneumoniae DNA Not Detected Not Detected [facility] M. pneumoniae DNA Not Detected Not Detected [facility] Nasopharyngeal 08/04/2024 6 :28 PM CDT 08/04/2024 6:48 PM CDT Narrative [facility] - 08/04/2024 8:16 PM CDT Is the Patient experiencing symptoms consistent with COVID?->No Surveillance testing for transplant patient?->No ??Interpretive Data The [employer] FilmArray Respiratory Panel (RP2.1) assay is a [...] assay has FDA clearance for testing of ARC CUTTER PLASMA ARC swabs. ??The performance of additional specimen types has been assessed by the performing laboratory. ??The performance characteristics of this assay have been determined by [facility] Molecular Infectious Disease Laboratory. Current interpretive data was last revised on 22. us Anastasia Amaro MD LAB MICROBIOLOGY - GENERAL ORDERABLES Final Result Performing Organization Address [facility] Co de Phone Number [facility] [place] [address] * (ABNORMAL) D-dimer, quantitative (08/04/2024 6:28 PM [...] BLOOD ORDERABLES Final Result Performing Organization Address [facility]/[place] Co de Phone Number [facility] [place] [address] * ECG 12 lead (08/04/2024 5:45 PM CDT) Ventricular Rate EKG/Min 131 BPM [facility] Atrial Rate 131 BPM [facility] NM-Interval (MSEC) 126 ms [facility] QRS-Interval (MSEC) 74 ms [facility] QT-Interval (MSEC) 300 ms [facility] QTc 443 ms [facility] P [place] 53 degrees [facility] R [place] 8 degrees [facility] T [place] 33 degrees [facility] Diagnosis Sinus tachycardia Otherwise normal ECG Confirmed by Kaci Estrella MD ([id number]) on 08/08/2024 3:27:38 AM [facility] 08/04/2024 5:45 PM CDT 08/08/2024 3:27 AM MANAGER OF CLINICAL us Anastasia Amaro MD ECG ORDERABLES Final Resu lt Performing Organization Address [facility]/[place] Co de Phone Number [facility] * ECG 12 lead (08/04/2024 11:54 AM CDT) Ventricular Rate EKG/Min 110 BPM [facility] Atrial Rate 110 BPM [facility] NM-Interval (MSEC) 122 ms [facility] QRS-Interval (MSEC) 78 ms [facility] QT-Interval (MSEC) 334 ms [facility] QTc 452 ms [facility] P [place] 52 degrees [facility] R [place] 5 degrees [facility] T [place] 25 degrees [facility] Diagnosis Sinus tachycardia Otherwise normal ECG No previous ECGs available Confirmed by SAMANTA KAPLAN M.D ([id number]) on 08/04/2024 1:23:30 PM [facility] 08/04/2024 11:5 4 AM CDT 08/04/2024 1:23 PM CDT us Anastasia Amaro MD ECG ORDERABLES Final Resu lt Performing Organization Address [facility]/ZIP Co de Phone Number [facility] * Antibody identification (08/04/2024 6:12 AM CDT) Antibody ID 1 Passive Anti-D Blood 08/04/2024 6:12 AM CDT 08/04/2024 6:12 AM CDT us Anastasia Amaro MD LAB BLOOD BANK TEST ORDERA BLES Final Result Performing Organization Address [facility]/[place] Co de Phone Number BIA [facility] Department [place] [address] * eGFR (08/04/2024 4:48 AM CDT) eGFR [...] MD LAB BLOOD ORDERABLES Final Result BIA [facility] Department [place] [address] * (ABNORMAL) Comprehensive metabolic panel (08/04/2024 4:48 AM CDT) Sodium 137 135 - 145 mmol/L Potassium, pl 3.8 3.3 - 4.9 mmol/L [facility] Chloride 104 97 - 110 mmol/L [facility] CO2 22 22 - 32 mmol/L [facility] Anion gap 11 2 - 15 mmol/L [facility] BUN 8 6 - 25 mg/dL [facility] Creatinine 0.44(L) 0.60 - 1.10 mg/dL [facility] Glucose 77 70 - 199 mg/dL [facility] Comment: Interpretive Data Fasting glucose >/= 126 [...] 2022. Calcium 9.2 8.5 - 10.3 mg/dL [facility] Bilirubin, total 0.3 0.1 - 1.2 mg/dL [facility] Protein, pl 6.6 6.5 - 8.5 g/dL [facility] Albumin 3.3(L) 3.5 - 5.0 g/dL [facility] Alk phos 82 40 - 130 Units/L [facility] ALT 23 7 - 45 Units/L [facility] AST 25 10 - 45 Units/L [facility] Blood 08/04/2024 4:48 AM CDT 08/04/2024 5:02 AM CDT us Anastasia Amaro MD LAB BLOOD ORDERABLES Final Result [facility] Department [place] [address] * (ABNORMAL) CBC without differential (08/04/2024 4:48 AM CDT) WBC 12.6(H) 3.8 - 9.9 K/cumm Hgb 12.4 11.9 - 15.5 g/dL [facility] Hct 36.5 35.6 - 45.5 % [facility] Plt 278 150 - 400 K/cumm [facility] MPV 10.2 9.1 - 12.3 fL [facility] RBC 4.17 3.90 - 5.20 M/cumm [facility] MCV 87.5 81.3 - 96.4 fL [facility] MCH 29.7 27.1 - 33.3 pg [facility] MCHC 34.0 32.3 - 35.7 g/dL [facility] RDW CV 14.1 11.1 - 14.9 % [facility] RDW SD 45.0 35.7 - 48.1 fL [facility] NRBC abs 0.00 0.00 - 0.01 K/cumm [facility] Blood 08/04/2024 4:48 AM CDT 08/04/2024 5:02 AM CDT Anastasia Amaro MD LAB BLOOD ORDERABLES Final Result [facility] Department [place] [address] * (ABNORMAL) Type and screen (08/04/2024 4:48 AM CDT) ABO Rh O Negative Abiodun, indirect Positive(A) [facility] Blood 08/04/2024 4:48 AM CDT 08/04/2024 4:59 AM CDT Narrative [facility] - 08/04/2024 6:12 AM CDT Has the patient had Daratumumab or Isatuximab in the past 6 months?->Unknown us Anastasia Amaro MD LAB BLOOD BANK TEST ORDERA BLES Final Result BIA TODD [facility] Department [place] [address] * Cardiolipin antibody, IgG and IgM (08/04/2024 [...] [place]. These results were obtained with the [employer] 2200 System. Cardiolipin IgG values obtained with [...] antibodies. ??These results were obtained with the [employer] 2200 System. Cardiolipin IgM values obtained with different manufacturers' assay methods may not be used interchangeably. Current interpretive data was last revised on 2017. Blood 08/04/2024 4:48 AM CDT 08/04/2024 5:02 AM CDT us Anastasia Amaro MD LAB BLOOD ORDERABLES Final Result Performing Organization Address City/State/[place] Co de Phone Number [facility] Department [place] [address] * Beta 2 glycoprotein IgM Ab (08/04/2024 4:48 AM CDT) [facility] Beta-2 glycoprotein I, IgM 0.6 [...] factor. ??These results were obtained with the [employer] 2200 System. Beta-2 GP1 IgM values obtained with different manufacturers' assay methods may not be used interchangeably. Current interpretive data was last revised on 2017. Blood 08/04/2024 4:48 AM CDT 08/04/2024 5:02 AM CDT Anastasia Amaro MD LAB BLOOD ORDERABLES Final Result Performing Organization Address [facility] Co de Phone Number [facility] [place] [address] * Beta 2 glycoprotein IgG Ab (08/04/2024 4:48 AM CDT) Beta-2 glycoprotein I, IgG <1.4 <=19.9 units/mL Comment: Interpretive Data Negative: <20 U/mL Positive: > or = 20 U/mL ? Beta-2 glycoprotein 1 (Beta-2 GP1) antibodies are a more specific marker of thrombotic risk. It is expected that some samples will be ACL positive and Beta- 2 [id number]. In order to improve specificity, the International Congress on Antiphospholipid Antibodies recommends Beta-2 GP1 antibodies of IgG or IgM isotype ??(> the 99th percentile), obtained twice, at least 12 weeks apart, to support a diagnosis of antiphospholipid syndrome. The cutoff for this assay was developed from data based on the 99th percentile. These results were obtained with the [employer] 2200 System. Beta 2GP1 IgG values obtained with different manufacturers' assay methods may not be used interchangeably. Current interpretive data was last revised on 2017. Blood 08/04/2024 4:48 AM CDT 08/04/2024 5:02 AM CDT Anastasia Amaro MD LAB BLOOD ORDERABLES Final Result Performing Organization Address [facility]/[place] Co de Phone Number BIA [facility] [place] [address] * Lupus Anticoagulant Panel plus Reflexes (08/04/2024 4:48 AM CDT) PT 11.6 9.7 - 13.0 sec INR 1.07 0.90 - 1.20 [facility] Comment: Interpretive data Oral anticoagulant therapeutic ranges: Venous thromboembolism prophylaxis or treatment: 2.0-3.0 CARDIOLOGY Standard range: 2.0-3.0 High-intensity range: 2.5-3.5 Refer to indication-specific guidelines for appropriate target ranges for prosthetic heart valve replacement. Current interpretive data was last revised on 2019. aPTT 29 28 - 38 sec [facility] Comment: Interpretive Data Heparin therapeutic range: 66.0 - 100.0 seconds. Range based on correlation with therapeutic heparin activity range of 0.3 - 0.7 Units/mL. Current interpretive data was last revised on 2023. DRVVT screen ratio 1.13 0.00 - 1.20 Ratio [facility] SCT Screen Ratio 1.01 0.00 - 1.16 Ratio [facility] Lupus anticoagulant, interp Negative [facility] Comment: Interpretive data ?? Lupus anticoagulants (LA) [...] ?? References: 1) Neilo V, Herlinda A, Goldston JH, Orarelyl TL, China M, De Americo PG. Update of the guidelines for lupus anticoagulant detection. J Thromb Haemost. 2009; 7:5807-1077. 2. Andrew S. et al. International consensus statement on an update of the classification criteria for definite antiphospholipid syndrome (APS). J Thromb Haemost. 2006; 4:295-306. Current interpretive data was last revised on 2018 Blood 08/04/2024 4:48 AM CDT 08/04/2024 5:21 AM CDT us Anastasia Amaro MD LAB BLOOD ORDERABLES Final Result [facility] Department [place] [address] * Echocardiogram (08/03/2024 4:07 PM CDT) Anatomical Region Laterality Modality Ultrasound 08/03/2024 1:22 PM CDT Narrative 08/03/2024 5:10 PM CDT ?[facility] ? Echo Report ?[facility]'s [address], [place] ??[address] ?[phone] ? Patient Name: SUKI LEON ? Study Type: Echo ? Patient : 1995 ? Exam Date: ??08/03/2024 ? Age: ?29Y ? Exam Time: ??1:22:00 PM ? Referring MD: SIM HUSAIN ? Height: ? 65in ? Weight: ? 284lb ? BSA: ?2.3 m2 ? Sex: FEMALE ? BP: ? 139/83 ? Radio Electronics Officer: May Quick ? Pat. Stat.: Inpatient ?Room: 6800 ? Account:[id number] ? Indications for Study:MONO-DI TWINS Procedures: COLORFLOW, [...] Normal. Septum: PFO. Defect sz. Moderate ??Shunt: Ujifz-xm-Jauv ?? Annular Dimensions: ??Ao Valve: 0.52 cm [...] Procedure Note Macie Vickers MD - 08/03/2024 [facility] Echo Report [address] [address] Patient Name: SUKI LEON Study Type: Echo Patient : 1995 Exam Date: 08/03/2024 Age: 29Y Exam Time: 1:22:00 PM Referring MD: SIM HUSAIN Height: 65in Weight: 284lb BSA: 2.3 m2 Sex: FEMALE BP: 139/83 Radio Electronics Officer: May Hoskins. Stat.: Inpatient Room: [facility] Account:[id number] Indications for Study:MONO-DI TWINS Procedures: COLORFLOW, DOPPLER [...] Normal. Septum: PFO. Defect sz. Moderate Shunt: Vgsao-vi-Hmge Annular Dimensions: Ao Valve: 0.52 cm (+0.79) [...] AM CDT Narrative 08/03/2024 4:30 PM CDT ?[facility] ? Echo Report ?[address], [place], [place] ??[address] ?[phone] ? Patient Name: SUKI LEON ? Study Type: Echo ? Patient : 1995 ? Exam Date: ??08/03/2024 ? Age: ?29Y ? Exam Time: ??11:38:00 AM ? Referring MD: SIM HUSAIN ? Height: ? 65in ? Weight: ? 284lb ? BSA: ?2.3 m2 ? Sex: FEMALE ? BP: ? 139/83 ? Radio Electronics Officer: May Quick ? Pat. Stat.: Inpatient ?Room: 6800 ? Account:[id number] ? Indications for Study:AORTIC ECTASIA. 747.29, MONO-DI [...] Normal. Septum: PFO. Defect sz. Moderate ??Shunt: Bvjqt-tx-Xrmg ?? Ventricles: D-looped ??LV size: Normal. LV [...] Procedure Note Macie Vickers MD - 08/03/2024 [facility] Echo Report [facility] [address], [place] [address] Patient Name: SUKI LEON Study Type: Echo Patient : 1995 Exam Date: 08/03/2024 Age: 29Y Exam Time: 11:38:00 AM Referring MD: SIM HUSAIN Height: 65in Weight: 284lb BSA: 2.3 m2 Sex: FEMALE BP: 139/83 Radio Electronics Officer: May Hoskins. Stat.: Inpatient Room: [facility] Account:[id number] Indications for Study:AORTIC ECTASIA. 747.29, MONO-DI TWINS [...] Normal. Septum: PFO. Defect sz. Moderate Shunt: Ouaiv-gr-Ldiw Ventricles: D-looped LV size: Normal. LV function:Normal. [...] previously determined [facility]. Anatomic surveys were also completed [...] was previously determined to be[facility]och[facility]ionic [facility]. Anatomic surveys were alsocompleted there. [...] CDT 08/01/2024 4:24 PM CDT Narrative BIA [facility] - 08/04/2024 11:19 AM CDT Testing performed by [facility] Microbiology Laboratory ([phone]). us Millicent Duran NP LAB MICROBIOLOGY - GENERAL ORDERABLES Final Result [facility] [place] [address] * eGFR (08/01/2024 4:33 AM CDT) eGFR [...] Amaro MD LAB BLOOD ORDERABLES Final Result [facility] [place] [address] * (ABNORMAL) Comprehensive metabolic panel (08/01/2024 4:33 AM CDT) Sodium 140 135 - 145 mmol/L Potassium, pl 3.8 3.3 - 4.9 mmol/L [facility] Chloride 106 97 - 110 mmol/L [facility] CO2 23 22 - 32 mmol/L [facility] Anion gap 11 2 - 15 mmol/L [facility] BUN 7 6 - 25 mg/dL [facility] Creatinine 0.46(L) 0.60 - 1.10 mg/dL [facility] Glucose 75 70 - 199 mg/dL [facility] Comment: Interpretive Data Fasting glucose >/= 126 [...] 2022. Calcium 9.2 8.5 - 10.3 mg/dL [facility] Bilirubin, total 0.2 0.1 - 1.2 mg/dL [facility] Protein, pl 6.1(L) 6.5 - 8.5 g/dL [facility] Albumin 3.1(L) 3.5 - 5.0 g/dL [facility] Alk phos 69 40 - 130 Units/L [facility] ALT 30 7 - 45 Units/L [facility] AST 28 10 - 45 Units/L [facility] Blood 08/01/2024 4:33 AM CDT 08/01/2024 4:48 AM CDT us Anastasia Amaro MD LAB BLOOD ORDERABLES Final Result [facility] Department [place] [address] * (ABNORMAL) CBC without differential (08/01/2024 4:33 AM CDT) WBC 10.6(H) 3.8 - 9.9 K/cumm Hgb 11.7(L) 11.9 - 15.5 g/dL [facility] Hct 35.1(L) 35.6 - 45.5 % [facility] Plt 269 150 - 400 K/cumm [facility] MPV 9.9 9.1 - 12.3 fL [facility] RBC 3.96 3.90 - 5.20 M/cumm [facility] MCV 88.6 81.3 - 96.4 fL [facility] MCH 29.5 27.1 - 33.3 pg [facility] MCHC 33.3 32.3 - 35.7 g/dL [facility] RDW CV 14.3 11.1 - 14.9 % [facility] RDW SD 46.5 35.7 - 48.1 fL [facility] NRBC abs 0.00 0.00 - 0.01 K/cumm [facility] Blood 08/01/2024 4:33 AM CDT 08/01/2024 4:48 AM CDT Anastasia Amaro MD LAB BLOOD ORDERABLES Final Result Performing Organization Address City/[facility]/[place] Co de Phone Number [facility] [place] [address] * Type and screen (08/01/2024 4:33 AM CDT) Abiodun, indirect Negative ABO Rh O Negative [facility] Blood 08/01/2024 4:33 AM CDT 08/01/2024 5:12 AM CDT Narrative [facility] - 08/01/2024 6:16 AM CDT Has the patient had Daratumumab or Isatuximab in the past 6 months?->Unknown Anastasia Amaro MD LAB BLOOD BANK TEST ORDERA BLES Final Result [facility] [place] [address] * (ABNORMAL) CBC without differential (07/31/2024 5:09 AM CDT) WBC 11.0(H) 3.8 - 9.9 K/cumm Hgb 10.8(L) 11.9 - 15.5 g/dL [facility] Hct 33.1(L) 35.6 - 45.5 % [facility] Plt 257 150 - 400 K/cumm [facility] MPV 10.3 9.1 - 12.3 fL [facility] RBC 3.71(L) 3.90 - 5.20 M/cumm [facility] MCV 89.2 81.3 - 96.4 fL [facility] MCH 29.1 27.1 - 33.3 pg [facility] MCHC 32.6 32.3 - 35.7 g/dL [facility] RDW CV 14.3 11.1 - 14.9 % [facility] RDW SD 46.8 35.7 - 48.1 fL [facility] NRBC abs 0.02(H) 0.00 - 0.01 K/cumm [facility] Blood 07/31/2024 5:09 AM CDT 07/31/2024 5:27 AM CDT Anastasia Amaro MD LAB BLOOD ORDERABLES Final Result Performing Organization Address City/[facility]/ZIP Co de Phone Number [facility] [place] [address] * Magnesium (07/31/2024 5:07 AM CDT) [facility] Magnesium 1.9 1.4 - 2.5 mg/dL Blood 07/31/2024 5:07 AM CDT 07/31/2024 5:26 AM CDT Anastasia Amaro MD LAB BLOOD ORDERABLES Final Result Performing Organization Address City/[facility]/ZIP Co de Phone Number [facility] [place] [address] * eGFR (07/30/2024 4:49 AM CDT) [facility] eGFR >90 >=60 mL/min/1. 73 [...] BLOOD ORDERABLES Final Result Performing Organization Address City/State/[place] Co de Phone Number [facility] Department [place] [address] * (ABNORMAL) Comprehensive metabolic panel (07/30/2024 4:49 AM CDT) Sodium 140 135 - 145 mmol/L Potassium, pl 3.9 3.3 - 4.9 mmol/L [facility] Chloride 108 97 - 110 mmol/L [facility] CO2 22 22 - 32 mmol/L [facility] Anion gap 10 2 - 15 mmol/L [facility] BUN 5(L) 6 - 25 mg/dL [facility] Creatinine 0.46(L) 0.60 - 1.10 mg/dL [facility] Glucose 100 70 - 199 mg/dL [facility] Comment: Interpretive Data Fasting glucose >/= 126 [...] 2022. Calcium 8.6 8.5 - 10.3 mg/dL [facility] Bilirubin, total 0.3 0.1 - 1.2 mg/dL [facility] Protein, pl 6.2(L) 6.5 - 8.5 g/dL [facility] Albumin 3.2(L) 3.5 - 5.0 g/dL [facility] Alk phos 70 40 - 130 Units/L [facility] ALT 22 7 - 45 Units/L [facility] AST 23 10 - 45 Units/L [facility] Blood 07/30/2024 4:49 AM CDT 07/30/2024 5:02 AM CDT Anastasia Amaro MD LAB BLOOD ORDERABLES Final Result [facility] Department [place] [address] * (ABNORMAL) CBC without differential (07/30/2024 4:49 AM CDT) WBC 10.2(H) 3.8 - 9.9 K/cumm Hgb 10.9(L) 11.9 - 15.5 g/dL [facility] Hct 32.5(L) 35.6 - 45.5 % [facility] Plt 262 150 - 400 K/cumm [facility] MPV 10.0 9.1 - 12.3 fL [facility] RBC 3.65(L) 3.90 - 5.20 M/cumm [facility] MCV 89.0 81.3 - 96.4 fL [facility] MCH 29.9 27.1 - 33.3 pg [facility] MCHC 33.5 32.3 - 35.7 g/dL [facility] RDW CV 14.4 11.1 - 14.9 % [facility] RDW SD 46.5 35.7 - 48.1 fL [facility] NRBC abs 0.00 0.00 - 0.01 K/cumm [facility] Blood 07/30/2024 4:49 AM CDT 07/30/2024 5:02 AM CDT Anastasia Amaro MD LAB BLOOD ORDERABLES Final Result Performing Organization Address City/[facility]/[place] Co de Phone Number [facility] [place] [address] * Magnesium (07/30/2024 4:49 AM CDT) Magnesium 2.3 1.4 - 2.5 mg/dL Blood 07/30/2024 4:49 AM CDT 07/30/2024 5:02 AM CDT Anastasia Amaro MD LAB BLOOD ORDERABLES Final Result Performing Organization Address City/[facility]/[place] Co de Phone Number [facility] Department [place] [address] * Check Sample (07/29/2024 6:47 AM CDT) ABO Rh O Negative [facility] HCLL OTHER 07/29/2024 6:47 AM CDT 07/29/2024 7:10 AM CDT Anastasia Amaro MD LAB BLOOD ORDERABLES Final Result Performing Organization Address City/[facility]/[place] Co de Phone Number [facility] Department [place] [address] [facility] * eGFR (07/29/2024 5:43 AM CDT) eGFR [...] Amaro MD LAB BLOOD ORDERABLES Final Result [id number] Department of Laboratories [place], [place] [id number] * (ABNORMAL) Magnesium (07/29/2024 5:43 AM CDT) Magnesium 3.7(H) 1.4 - 2.5 mg/dL Blood 07/29/2024 5:43 AM CDT 07/29/2024 6:36 AM CDT Anastasia Amaro MD LAB BLOOD ORDERABLES Final Result Performing Organization Address [facility] de Phone Number [facility] [place] [address] * RPR Blood (07/29/2024 5:43 AM CDT) Pathologist [facility] RPR Nonreactive Nonreactive Blood 07/29/2024 5:43 AM CDT 07/29/2024 6:36 AM CDT Anastasia Amaro MD LAB MICROBIOLOGY - GENERAL ORDERABLES Final Result Performing Organization Address [facility] de Phone Number [facility] [place] [address] * HIV 1/2 Antibody plus p24 Antigen Blood (07/29/2024 5:43 AM CDT) [facility] HIV 1/2 ab + p24 ag Nonreactive Nonreactive Comment:Nonreactive for HIV- 1 antigen and HIV-1/HIV-2 antibodies. No laboratory evidence of HIV infection. If acute HIV infection is suspected, consider testing for HIV-1 RNA. Current interpretive data was last revised on 22. Blood 07/29/2024 5:43 AM CDT 07/29/2024 6:36 AM CDT Anastasia Amaro MD LAB MICROBIOLOGY - GENERAL ORDERABLES Final Result Performing Organization Address [facility] Co de Phone Number [facility] [place] [address] * Protein / creatinine ratio, urine, random (07/29/2024 5:43 AM CDT) [facility] Protein, ur, quant 8.4 mg/dL Comment: Interpretive Data No reference range established. Current interpretive data was last revised 2019. Creatinine Ur 82.2 mg/dL [facility] Comment: Interpretive Data No reference range established. Current interpretive data was last revised 2019. Protein/creatinin e ratio 102.2 0.0 - 180.0 mg/g CR [facility] Urine 07/29/2024 5:43 AM CDT 07/29/2024 9:30 AM CDT Anastasia Amaro MD LAB URINE ORDERABLES Final Result [facility] Department [place] [address] * (ABNORMAL) Comprehensive metabolic panel (07/29/2024 5:43 AM CDT) Sodium 140 135 - 145 mmol/L Potassium, pl 3.4 3.3 - 4.9 mmol/L [facility] Chloride 103 97 - 110 mmol/L [facility] CO2 22 22 - 32 mmol/L [facility] Anion gap 15 2 - 15 mmol/L [facility] BUN 5(L) 6 - 25 mg/dL [facility] Creatinine 0.51(L) 0.60 - 1.10 mg/dL [facility] Glucose 92 70 - 199 mg/dL [facility] Comment: Interpretive Data Fasting glucose >/= 126 [...] 2022. Calcium 8.5 8.5 - 10.3 mg/dL [facility] Bilirubin, total 0.6 0.1 - 1.2 mg/dL [facility] Protein, pl 6.5 6.5 - 8.5 g/dL [facility] Albumin 3.7 3.5 - 5.0 g/dL [facility] Alk phos 74 40 - 130 Units/L [facility] ALT 20 7 - 45 Units/L [facility] AST 25 10 - 45 Units/L [facility] Blood 07/29/2024 5:43 AM CDT 07/29/2024 6:36 AM CDT Anastasia Amaro MD LAB BLOOD ORDERABLES Final Result Performing Organization Address [facility] Co de Phone Number [facility] Department [place] [address] * Type and screen (07/29/2024 5:43 AM CDT) [facility] Abiodun, indirect Negative ABO Rh O Negative [facility] Blood 07/29/2024 5:43 AM CDT 07/29/2024 6:37 AM CDT Narrative [facility] - 07/29/2024 7:26 AM CDT Has the patient had Daratumumab or Isatuximab in the past 6 months?->Unknown us Anastasia Amaro MD LAB BLOOD BANK TEST ORDERA BLES Final Result Performing Organization Address [facility] Co de Phone Number [facility] Department [place] [address] * (ABNORMAL) CBC without differential (07/29/2024 5:43 AM CDT) [facility] WBC 9.6 3.8 - 9.9 K/cumm Hgb 11.2(L) 11.9 - 15.5 g/dL [facility] Hct 33.5(L) 35.6 - 45.5 % [facility] Plt 291 150 - 400 K/cumm [facility] MPV 10.4 9.1 - 12.3 fL [facility] RBC 3.83(L) 3.90 - 5.20 M/cumm [facility] MCV 87.5 81.3 - 96.4 fL [facility] MCH 29.2 27.1 - 33.3 pg [facility] MCHC 33.4 32.3 - 35.7 g/dL [facility] RDW CV 14.2 11.1 - 14.9 % [facility] RDW SD 45.5 35.7 - 48.1 fL [facility] NRBC abs 0.00 0.00 - 0.01 K/cumm [facility] Blood 07/29/2024 5:43 AM CDT 07/29/2024 6:35 AM CDT us Anastasia Amaro MD LAB BLOOD ORDERABLES Final Result [facility] Department [place] [address] documented in this encounter Visit Diagnoses Not [...] covering., Indications: PainIndications:Pain Given 09/22/2024 8:33 AM MANAGER OF CLINICAL 1,000 mg Given 09/22/2024 12:53 AM MANAGER OF CLINICAL 1,000 mg Given 09/21/2024 6:08 PM MANAGER OF CLINICAL 1,000 mg calcium carbonate (TUMS) chewable tablet [...] Thu09/21/24 at 0847 Given 09/22/2024 8:33 AM MANAGER OF CLINICAL 5 mg Given 09/21/2024 9:55 PM MANAGER OF CLINICAL 5 mg Given 09/21/2024 9:05 AM MANAGER OF CLINICAL 5 mg enoxaparin (LOVENOX) syringe 40 mg 40 mg, subcutaneous, Every 12 hours scheduled, First dose on Thu09/20/24 at 2100, Indications: Deep Vein Thrombosis PreventionIndications:Deep Vein Thrombosis Prevention Given 09/22/2024 8:35 AM MANAGER OF CLINICAL 40 mg Left Upper Arm Given 09/21/2024 9:55 PM MANAGER OF CLINICAL 40 mg Ri ght Upper Arm Given 09/21/2024 8:31 AM MANAGER OF CLINICAL 40 mg Ri ght Upper Arm ferrous sulfate tablet 325 mg 325 mg (65 mg of elemental iron), oral, Daily with breakfast, First dose on Thu09/20/24 at 0800, Indications: Iron Deficiency AnemiaIndications:Iron Deficiency Anemia Given 09/22/2024 8:33 AM MANAGER OF CLINICAL 325 mg Given 09/21/2024 8:31 AM MANAGER OF CLINICAL 325 mg Given 09/20/2024 8:50 AM MANAGER OF CLINICAL 325 mg fluticasone propionate (FLONASE) 50 mcg/actuation nasal spray 1 spray 1 spray, each nostril, Daily, First dose on Thu08/19/24 at 1615 Given 09/22/2024 8:33 AM MANAGER OF CLINICAL 1 spray Given 09/20/2024 5:19 PM MANAGER OF CLINICAL 1 spray Given 09/17/2024 10:16 AM MANAGER OF CLINICAL 1 spray labetaloL (NORMODYNE,TRANDATE) tablet 300 mg 300 mg, oral, 3 times daily, First dose on Thu09/19/24 at 1400 Given 09/22/2024 8:35 AM MANAGER OF CLINICAL 300 mg Given 09/21/2024 9:55 PM MANAGER OF CLINICAL 300 mg Given 09/21/2024 4:15 PM MANAGER OF CLINICAL 300 mg lidocaine (LIDODERM) 5 % patch 2 patch 2 patch, transdermal, Administer over 12 Hours, Every 24 hours, First dose on Thu09/21/24 at 0930, Do not cover the holes on the top side of the patch., Apply to affected area: abdomen Medication Applied 09/22/2024 8:33 AM MANAGER OF CLINICAL 2 patches Other (Comment) Medication Applied 09/21/2024 9:06 AM MANAGER OF CLINICAL 2 patches Other (Comment) magnesium sulfate 20 [...] Pre-EclampsiaIndications:Pre-Eclamps ia New Bag 09/20/2024 8:49 AM MANAGER OF CLINICAL 2 g/hr 50 mL/hr Rate/Dose Verify 09/20/2024 6:25 AM MANAGER OF CLINICAL 2 g/hr 50 mL/h r Rate/Dose Verify 09/20/2024 4:25 AM MANAGER OF CLINICAL 2 g/hr 50 mL/h r metroNIDAZOLE (FLAGYL) tablet 500 mg 500 mg, oral, Every 8 hours, First dose on Thu09/19/24 at 1645, Indications: Prophylaxis, SurgicalIndications:Prophylaxis, Surgical Given 09/22/2024 8:34 AM MANAGER OF CLINICAL 500 mg Given 09/22/2024 12:53 AM MANAGER OF CLINICAL 500 mg Given 09/21/2024 4:15 PM MANAGER OF CLINICAL 500 mg NIFEdipine (PROCARDIA XL/ADALAT CC) extended release tablet 120 mg 120 mg, oral, Daily, First dose on Thu09/03/24 at 0900, Do not crush, chew, cut, dissolve, open or otherwise manipulate tablet/capsule. Given 09/22/2024 8:35 AM MANAGER OF CLINICAL 120 mg Given 09/21/2024 8:32 AM MANAGER OF CLINICAL 120 mg Given 09/20/2024 8:50 AM MANAGER OF CLINICAL 120 mg ondansetron (ZOFRAN) injection 4 mg [...] covering., Indications: PainIndications:Pain Given 09/22/2024 9:58 AM MANAGER OF CLINICAL 5 mg Given 09/22/2024 6:12 AM MANAGER OF CLINICAL 5 mg Given 09/22/2024 12:53 AM MANAGER OF CLINICAL 5 mg PNV with jnyfrtd-fdxt-FW tablet 1 tablet 1 tablet, oral, Daily, First dose on Thu09/19/24 at 1715, Begin when normal bowel activity resumes., Indications: Vitamin Deficiency PreventionIndications:Vitamin Deficiency Prevention Given 09/22/2024 8:33 AM MANAGER OF CLINICAL 1 tablet Given 09/21/2024 8:31 AM MANAGER OF CLINICAL 1 tablet Given 09/20/2024 8:50 AM MANAGER OF CLINICAL 1 tablet senna-docusate (PERICOLACE) 8.6-50 mg per tablet 1 tablet 1 tablet, oral, 2 times daily, First dose on Thu09/19/24 at 2100, Hold if diarrhea., Indications: constipationIndications:constipation Given 09/21/2024 8:31 AM MANAGER OF CLINICAL 1 table t Given 09/20/2024 8:33 PM MANAGER OF CLINICAL 1 tablet Given 09/20/2024 8:50 AM MANAGER OF CLINICAL 1 tablet simethicone (MYLICON) chewable tablet 160 mg 160 mg, oral, 4 times daily PRN (after meals, bedtime), flatulence, Starting on Thu09/20/24 at 2025 Given 09/20/2024 9:38 PM MANAGER OF CLINICAL 160 mg sodium chloride 0.9% flush 0.5-20 mL 0.5-20 mL, intra-catheter, Every 8 hours scheduled (alternate), First dose on Thu09/19/24 at 1715, Flush volume based on line type and size. Given 09/21/2024 8:34 AM MANAGER OF CLINICAL 10 mL Given 09/20/2024 11:46 PM MANAGER OF CLINICAL 10 mL Given 09/20/2024 4:00 PM MANAGER OF CLINICAL 5 mL sodium chloride 0.9% irrigation As needed, Starting on Thu09/19/24 at 1416, Intra-Op Given 09/19/2024 2:16 PM MANAGER OF CLINICAL 2,000 mL sterile water irrigation As needed, Starting on Thu09/19/24 at 1416, Intra-Op Given 09/19/2024 2:16 PM MANAGER OF CLINICAL 1,000 mL documented in this encounter Discontinued [...] Recently Administered Medications Times are shown in MANAGER OF CLINICAL. Scheduled Medication Order 09/20/2024 09/21/2024 09/22/2024 acetaminophen [...] RN) 0831 (Not Given - Provider: Nancy Coroks RN - Reason: Patient/family refused) 0833 (Given [...] - Provider: Nancy Crooks RN) PNV with kgkcvpp-zcmn-YY tablet 1 tablet 1 tablet, oral, Daily, [...] Dean RN)0625 (Rate/Dose Verify - Provider: Blessing Daen RN)0849 (New Bag - Provider: Arianne Lee [...] Soumya Teixeira RN) 0605 (Given - Provider: Soumay Teixeira RN)1212 (Given - Provider: Nancy Crooks [...] RN - Reason: Order parameters not met) ejfyyqx-zdmsm-kscjbvf (MMR) 1,000-12,500 TCID50/0.5 mL live vaccine 0.5 mL 0.5 mL, subcutaneous, During hospitalization, immunization, Starting on Thu09/19/24 at 1634, For 1 dose, If not rubella immune. Warning: This is a live or live attenuated vaccine. Refrigerate. Two-component vaccine. Must be reconstituted with diluent provided. Document the NDC, Lot number, expiration date from the DR[employer] POWDER vial component at administration., Indications: Xhgngkb-Lrdry-Rtyhmal Vaccination ondansetron (ZOFRAN) injection 4 mg(Linked Group [...] Soumya Teixeira RN)0500 (Given - Provider: Soumya Teiexira RN)0834 (Given - Provider: Nancy Crooks RN)1212 [...] bolus from bag 6 g 1 09/04 essvove-vuicd-ojvzlcg (MMR) 1,000-12,500 TCID50/0.5 mL live vaccine 0.5 mL 1 09/19/2024 metroNIDAZOLE (FLAGYL) tablet 500 mg 1 09/04 naloxone (NARCAN) 0.4 mg/mL injection 0.04-0.4 mg 1 09/19/2024 ondansetron (ZOFRAN) injection 4 mg 2 09/19 ondansetron ODT (ZOFRAN-ODT) disintegrating tablet 4 mg 1 09/19/2024 oxyCODONE (ROXICODONE) tablet 5 mg 2 2023 PNV with pyakkhg-bpxh-HN tablet 1 tablet 2 09/19/2024 07/29/2024 polyethylene [...] 07/29/2024 documented in this encounter Care Teams Sterile Preparation Technician Relationship Specialty Start Date End Date No, Physician PCP - General 02/25/24 documented as of this encounter
--- OUTSIDE RECORDS SUMMARY | 2024-10-10 01:47 | XMS_ITS | Encounter Summary ---
Author Organization [facility] Healthcare Address [address] [place] [address] Care Team Providers Care Production Scheduler Name Role Phone No, Physician Primary Care Provider [phone] Encounter Details Date Type Department Care Team (Late st Contact Info) Description 07/28/2024 9:32 PM CDT - 07/29/2024 1:41 AM CDT Hospital Encounter [facility] [address] [place] [address] Dia Mantilla MD [address] [place] [address] Discharge Disposition: Discharge to a critical access hospital Social History Tobacco Use Types Packs/Day Years Used Date Smoking Tobacco: Never Smokeless Tobacco: Never [facility] Utilities Answer Date Recorded In the past 12 months [facility] electric, gas, oil, or water company [...] often do you attend chur ch or nondenominational services? Never 07/29/2024 Do you belong to any clubs o r organizations such as uatsdin groups, unions, fraternal or athletic groups, or [...] staff should administer the PHQ-9) 0 07/28/2024 [facility] - Occupational Stress Questionnaire Answer [...] things needed for daily living? 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 Gender Identity Not on file Sexual [...] acid ( 19 ORAL) Take by mouth acetaminophen 500 mg capsuleIndicatio ns:Pain Take 2 [...] daily as needed (constipation) 289 g 09/22/2024 aspirin 81 mg chewable tablet Take [...] mouth daily 30 capsule 11 07/13/2024 4 labetaloL (NORMODYNE,TRAND ATE) 300 mg tablet Take 1 tablet (300 mg total) by mouth 3 (three) times a day 90 tablet 11 09/22/2024 4 metoclopramide (REGLAN) 10 mg tablet Take 1 tablet (10 mg total) by mouth 4 (four) times a day as needed (nausea) 30 tablet 1 05/31/2024 4 documented as of this encounter Discharge Disposition Disposition Code Departure Means Destination Discharge to a critical access hospital [facility] documented in this encounter Progress Notes * Norma Hagan MD - 07/28/2024 9:38 PM CDT [facility] Obstetrics Triage Note Chief Complaint: elevated blood pressure, headache Estimated Date of Delivery: 10/31/24 Provider: [facility] - Annalee Gis Scientist: STEPHON Subjective HPI: Suki Leon is a 29 y.o. female at 26w3d weeks gestation, dated by 8 wk ultrasound, no consistent with LMP with Estimated Date of Delivery: 10/31/24 who presents to [facility] L&D Triage for elevated blood pressure. 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 - [...] to start magnesium and betamethasone, transfer to [facility] for further management. Plan discussed with Dr. tSerling. Norma Hagan MD Family Medicine PGY-2 [facility] Family Medicine Residency Cosigned by Kodak Sterling MD at 08/02/2024 8:59 AM CDT documented in this encounter H&P Notes * Kodak Sterling MD - 07/28/2024 10:47 PM CDT [address] Mantilla currently with mono-chorionic, diamniotic twins at 26 3/7 weeks. 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 Discussed case with Dr Cruz of [facility] who agrees to transfer to [facility] documented in this encounter Nursing Notes [...] received. Report given to Nurse Keller with [facility] transport team @ 0140. Pt transported off floor on stretcher with [facility] transport team. documented in this encounter Plan [...] BLOOD ORDERABLES F inal Result [facility] [address] [place] [address] [place] [address] * Uric acid (07/28/2024 10:30 PM CDT) Uric acid 5.5 2.5 - 7.0 mg/dL Blood 07/28/2024 10:3 0 PM CDT 07/28/2024 10:36 PM CDT Kodak Sterling MD LAB BLOOD ORDERABLES F inal Result Performing Organization Address [facility] Co de Phone Number [facility] [address] [place] [address] [place] [address] * Lactate dehydrogenase (LD) (07/28/2024 10:30 PM CDT) Lactate dehydrogenase (LDH) 163 100 - 250 Units/L Blood 07/28/2024 10:3 0 PM CDT 07/28/2024 10:36 PM CDT Kodak Sterling MD LAB BLOOD ORDERABLES F inal Result Performing Organization Address City/[facility] Co de Phone Number [facility] 1 [facility] [place] [address] * (ABNORMAL) Urinalysis reflex to microscopic and [...] Source: [facility] Current Interpretive Data was last revised on [...] MICROBIOLOGY - GEN ERAL ORDERABLES Final Result [facility] 1 [facility] [place] [address] * (ABNORMAL) CBC without differential [...] F inal Result [facility] ([place] 1 [facility] Department of Laboratories [place], [place] [id number] * Protein / creatinine ratio, urine, random [...] F inal Result [facility] 1 [facility] [place] [address] * (ABNORMAL) Comprehensive metabolic panel (07/28/2024 10:30 [...] BLOOD ORDERABLES F inal Result [facility] [place]) 1 [facility] [place] [address] documented in this encounter Visit Diagnoses Not [...] if HR less than 60., Starting on [facility] 07/28/24 at 2209, For 8 hours, After [...] if HR less than 60., Starting on [facility] 07/28/24 at 2209, For 8 hours, After [...] if HR less than 60., Starting on [facility] 07/28/24 at 2209, For 8 hours, After [...] g/hr (50 mL/hr), intravenous, Continuous, Starting on [facility] 07/28/24 at 2345, Suspected magnesium toxicity - [...] And Magnesium (CANCELED) As needed/STAT, Starting on [facility] 07/28/24 at 2309, Until Specified, Specimen Types - Blood;, Suspected magnesium toxicity Group 2: labetaloL (NORMODYNE,TRANDATE) injection 20 mgJump to med 20 mg, intravenous, at 120 mL/hr, Administer over 2 Minutes, Every 10 min PRN, high blood pressure, SBP greater than or equal to 160 or DBP greater than or equal to 110; Hold if HR less than 60., Starting on [facility] 07/28/24 at 2209, For 8 hours, After [...] if HR less than 60., Starting on [facility] 07/28/24 at 2209, For 8 hours, After [...] if HR less than 60., Starting on [facility] 07/28/24 at 2209, For 8 hours, After [...] 07/28/2024 documented in this encounter Care Teams Production Scheduler Relationship Specialty Start Date End Date No, Physician PCP - General 02/25/24 documented as of this encounter
--- OUTSIDE RECORDS SUMMARY | 2024-10-10 01:47 | XMS_ITS | Encounter Summary ---
Author Organization [facility] Healthcare Address [address] [place] [address] Care Team Providers Care Rfid Strategist Name Role Phone No, Physician Primary Care Provider [phone] Reason for Referral * Diagnostic Imaging (Routine) - Pending Review Specialty Diagnoses / Procedures Referred By Contac t Referred To Contact Diagnoses High risk , antepartum Monochorionic diamniotic twin , antepartum Procedures US OB Follow up with US Transvaginal (C) Dia Mantilla MD [address] [place] [address] DR BAUTISTA [address] [place] [address] Phone: tel: [place] [phone] [place] [address] Referral ID Status Reason Start Date Expiration Date V isits Requested Visits Authorized [id number] Pending Review 05/19/2024 06/18/2025 2 2 Reason for Visit * Diagnostic Imaging (Routine) - Pending Review Specialty Diagnoses / Procedures Referred By Contac t Referred To Contact Diagnoses High risk , antepartum Monochorionic diamniotic twin , antepartum Procedures US OB Follow up with US Transvaginal (C) Dia Mantilla MD [address] [place] [address] DR BAUTISTA [address] [place] [address] Phone: tel: [facility] [address] [place] [address] Referral ID Status Reason Start Date Expiration Date V isits Requested Visits Authorized [id number] Pending Review 05/19/2024 06/18/2025 2 2 Encounter Details Date Type Department Care Team (Latest Contact Info) Description 07/27/2024 12:18 PM CDT - 07/27/2024 11:59 PM CDT Hospital Encounter [facility] Maternal Medicine Ultrasound[facility] [address] [place] [address] High risk , antepartum; Monochorionic [...] week 07/28/2024 How often do you attend [facility] or jewish services? Never 07/28/2024 Do you belong to any clubs o r organizations such as episcopal groups, unions, fraternal or athletic groups, or [...] administer the PHQ-9) 0 07/28/2024 [facility] - Occupational Stress Questionnaire Answer Date [...] things needed for daily living? No 07/28/2024 [place] Depression Scale Answer Date Recorded [place] Depression Scale Total 8 07/12/2024 The thought [...] any time in the past 12 m [facility], were you homeless or living in a half-way (including now)? 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
--- OUTSIDE RECORDS SUMMARY | 2024-10-10 01:47 | XMS_ITS | Encounter Summary ---
Author Organization [facility] Healthcare Address [address] [place] [address] Care Team Providers Care Chief Innovation Officer Name Role Phone No, Physician Primary Care Provider [phone] Encounter Details Date Type Department Care Team (Latest Contact Info) Description 07/29/2024 3:15 PM CDT - 07/29/2024 11:59 PM CDT Hospital Encounter [facility] [phone] Discharge Disposition: Discharge to home or self care Social History Tobacco Use Types Packs/Day Years Used Date Smoking Tobacco: Never Smokeless Tobacco: Never [facility] Utilities Answer Date Recorded In the past 12 months has [facility] electric, gas, oil, or water company [...] often do you attend chur ch or hoahaoism services? Never 07/29/2024 Do you belong to [...] the PHQ-9) 0 07/28/2024 [facility] - Occupational Stress [...] things needed for daily living? 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
--- OUTSIDE RECORDS SUMMARY | 2024-10-10 01:47 | XMS_ITS | Encounter Summary ---
Author Organization [facility] Healthcare Address [address] [place] [address] Care Team Providers Care Concrete Rubber Name Role Phone No, Physician Primary Care Provider [phone] Reason for Visit * Reason Comments Ultrasound * Diagnostic Imaging (Routine) - Pending Review Specialty Diagnoses / Procedures Referred By Contac t Referred To Contact Diagnoses Ultrasound scan done for inability to hear heart tones Procedures US Ob Limited Heaven Hooks, SUPERVISOR CARDING 4 [facility] [address] [address] Phone: tel: fax: Referral ID Status Reason Start Date Expiration Date V isits Requested Visits Authorized [id number] Pending Review 05/20/2024 06/19/2025 1 1 Encounter Details Date Type Department Care Team (Latest Contact Info) Description 06/13/2024 9:30 AM CDT Ancillary Procedure [facility] [address] [facility] [address] [place] [id number] Ultrasound scan done for inability to hear [...] staff should administer the PHQ-9) 0 05/18/2024 [place] Depression Scale Answer Date Recorded [place] Depression Scale Total 10 05/20/2024 The thought of harming myself has occurred to me . 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 CUSTOM MILLER Gender Identity Not on file Sexual Orientation [...] fluid is within normallimits. us Heaven Hooks SUPERVISOR CARDING IMG OB US PROCEDURES Final Result documented in this encounter Visit Diagnoses Diagnosis Ultrasound scan done for inability to hear heart tones Abnormality in heart rate/rhythm, antepartum condition or complication documented in this encounter Care Teams Concrete Rubber Relationship Specialty Start Date End Date No, Physician PCP - General 02/25/24 documented as of this encounter
--- OUTSIDE RECORDS SUMMARY | 2024-10-10 01:47 | XMS_ITS | Encounter Summary ---
Author Organization [facility] Healthcare Address [address] [place] [address] Care Team Providers Care Trench Digging Machine Operator Name Role Phone No, Physician Primary Care Provider [phone] Reason for Visit * Reason Onset Date Comments Test Results 07/12/2024 Encounter Details Date Type Department Care Team (Late st Contact Info) Description 07/12/2024 Telephone [facility] [address] [facility] [address] [place] [address] Dia Mantilla MD [address] [place] [address] [address] [place] [address] Test Results Social History Tobacco [...] staff should administer the PHQ-9) 0 05/18/2024 [place] Depression Scale Answer Date Recorded [place] Depression Scale Total 8 07/12/2024 The thought of harming myself has occurred to me . Never 07/12/2024 Personal Safety Answer Date Recorded Getting School Help Needed Not on file 02/24 Comments Yes Sex and Gender Information Value Date Recorded Sex Assigned at Not on file Legal Sex Female 2:19 AM SENIOR ENLISTED ADVISOR Gender Identity Not on file Sexual Orientation [...] aware that I would send her a [employer] message. I will order 2000IU to her [...] on filedocumented in this encounter Care Teams Trench Digging Machine Operator Relationship Specialty Start Date End Date No, Physician PCP - General 02/25/24 documented as of this encounter
--- OUTSIDE RECORDS SUMMARY | 2024-10-10 01:47 | XMS_ITS | Encounter Summary ---
Author Organization [facility] Address [address] [place] [address] Phone Care Team Providers Care Pier Master Name Role Phone No, Physician Primary Care Provider [phone] Encounter Details Date Type Department Care Team (Latest Contact Info) Description 08/03/2024 11:34 AM CDT - 08/03/2024 11:59 PM CDT Hospital Encounter [facility] Pediatric Cardiology [facility] 2nd Floor [address] [place] [address] Discharge Disposition: Discharge to home or self care Social History Tobacco Use Types Packs/Day Years Used Date Smoking Tobacco: Never Smokeless Tobacco: Never [facility] Utilities Answer Date Recorded In the past 12 months has [facility] electric, gas, oil, or water [employer] threatened to shut off services in your [...] How often do you attend chur or nondenominational services? Never 07/29/2024 Do you [...] staff should administer the PHQ-9) 0 07/28/2024 [facility] of Occupat ional Health - Occupational [...] things needed for daily living? No 07/29/2024 [place] Depression Scale Answer Date Recorded [place] Depression Scale Total 8 07/12/2024 The thought [...] on file Legal Sex Female 2:19 AM LAST GREASER Gender Identity Not on file Sexual Orientation [...] AM CDT Narrative 08/03/2024 4:30 PM CDT ?[facility] Heart Station ? Echo Report ?One [address] ??[address] ?[phone] ? Patient Name: SUKI BEE ? Study Type: Echo ? Patient : 1995 ? Exam Date: ??08/03/2024 ? Age: ?29Y ? Exam Time: ??11:38:00 AM ? Referring MD: SIM HUSAIN ? Height: ? 65in ? Weight: ? 284lb ? BSA: ?2.3 m2 ? Sex: FEMALE ? BP: ? 139/83 ? Digital Business Analyst: May Quick ? Pat. Stat.: Inpatient ?Room: 6800 ? Account:[id number] ? Indications for Study:AORTIC ECTASIA. 747.29, MONO-DI [...] Normal. Septum: PFO. Defect sz. Moderate ??Shunt: Gifrp-ih-[id number] ?? Ventricles: D-looped ??LV size: Normal. LV [...] Procedure Note Macie Vickers MD - 08/03/2024 [facility] Heart [facility] Echo Report [address] [address] Patient Name: SUKI BEE Study Type: Echo Patient : 1995 Exam Date: 08/03/2024 Age: 29Y Exam Time: 11:38:00 AM Referring MD: SIM HUSAIN Height: 65in Weight: 284lb BSA: 2.3 m2 Sex: FEMALE BP: 139/83 Digital Business Analyst: May Hoskins. Stat.: Inpatient Room: [facility] Account:[id number] Indications for Study:AORTIC ECTASIA. 747.29, MONO-DI TWINS [...] Normal. Septum: PFO. Defect sz. Moderate Shunt: [id number] Ventricles: D-looped LV size: Normal. LV function:Normal. [...] on filedocumented in this encounter Care Teams Pier Master Relationship Specialty Start Date End Date No, Physician PCP - General 02/25/24 documented as of this encounter
--- OUTSIDE RECORDS SUMMARY | 2024-10-10 01:47 | XMS_ITS | Encounter Summary ---
Author Organization [facility] Healthcare Address [address] [place] [address] Care Team Providers Care Secy Name Role Phone No, Physician Primary Care Provider [phone] Reason for Visit * Reason Comments Follow-up Encounter Details Date Type Department Care Team (Late st Contact Info) Description 07/27/2024 2:30 PM CDT Office Visit [facility] [address] [facility] [address] [place] [phone] Byron Tellez MD [address] [address] Unspecified high-risk (Primary Dx) Social [...] attend chur ch or nondenominational services? Never 07/28/2024 Do you belong to [...] staff should administer the PHQ-9) 0 07/28/2024 [facility] of Occupat ional [facility] - Occupational Stress Questionnaire [...] things needed for daily living? No 07/28/2024 [place] Depression Scale Answer Date Recorded [place] Depression Scale Total 8 07/12/2024 The thought [...] living in a detention (including now)? No 07/28/2024 Personal Safety Answer Date Recorded Getting School Help Needed Not on file 02/24 Comments Yes Sex and Gender Information Value Date Recorded Sex Assigned at Not on file Legal Sex Female 2:19 AM PODIATRY ASSISTANT Gender Identity Not on file Sexual [...] have elected not to pursue echocardiogram at [facility] as the likelihood of identifying a [...] aortic coarctation may not be kept at [facility] after delivery. Dr. Dia Mantilla will have to evaluate whether or not twin a can be delivered at [facility]. It was unlikely that new information [...] any separately reportable services. Voice recognition software [employer] Direct was used to dictate and transcribe this document.Fire Protection Designer variances may occur. Despite proof reading, typographical [...] MD LAB BLOOD ORDERABLES Final Re sult [facility] [address] [place] [address] * Differential, auto (07/27/2024 4:00 PM CDT) Neutrophil abs 5.9 1.5 - 6.5 K/cumm Imm gran abs 0.1 0.0 - 0.1 K/cumm [facility] Lymphocyte abs 2.0 0.8 - 3.3 K/cumm [facility] Monocyte abs 0.8 0.2 - 0.8 K/cumm [facility] Eosinophil abs 0.1 0.0 - 0.5 K/cumm [facility] Basophil abs 0.0 0.0 - 0.1 K/cumm [facility] Neutrophil pct 66.7 % [facility] Comment: Interpretive Data Percent cell count reference ranges are not reported, since discordance with absolute values may lead to misinterpretation of CBC data. Current Interpretive Data was last revised on 2018. Imm gran pct 0.8 % [facility] Comment: Interpretive Data Percent cell count reference ranges are not reported, since discordance with absolute values may lead to misinterpretation of CBC data. Current Interpretive Data was last revised on 2018. Lymphocyte pct 22.5 % [facility] Comment: Interpretive Data Percent cell count reference ranges are not reported, since discordance with absolute values may lead to misinterpretation of CBC data. Current Interpretive Data was last revised on 2018. Monocyte pct 8.4 % [facility] Comment: Interpretive Data Percent cell count reference ranges are not reported, since discordance with absolute values may lead to misinterpretation of CBC data. Current Interpretive Data was last revised on 2018. Eosinophil pct 1.4 % [facility] Comment: Interpretive Data Percent cell count reference ranges are not reported, since discordance with absolute values may lead to misinterpretation of CBC data. Current Interpretive Data was last revised on 2018. Basophil pct 0.2 % [facility] Comment: Interpretive Data Percent cell count reference ranges are not reported, since discordance with absolute values may lead to misinterpretation of CBC data. Current Interpretive Data was last revised on 2018. Blood 07/27/2024 4:00 PM CDT 07/27/2024 4:39 PM CDT Byron Tellez MD LAB BLOOD ORDERABLES Final Re sult Performing Organization Address [facility]/ZIP Co de Phone Number [facility] [address] [facility] [place] [address] * Uric acid (07/27/2024 4:00 PM CDT) Pathologist [facility] Uric acid 4.9 2.5 - 7.0 mg/dL Blood 07/27/2024 4:00 PM CDT 07/27/2024 4:45 PM CDT Byron Tellez MD LAB BLOOD ORDERABLES Final Re sult Performing Organization Address [facility] Co de Phone Number [facility] [address] Department [place] [address] * (ABNORMAL) Comprehensive metabolic panel (07/27/2024 4:00 PM CDT) Sodium 137 135 - 145 mmol/L Potassium, pl 3.5 3.3 - 4.9 mmol/L [facility] Chloride 104 97 - 110 mmol/L [facility] CO2 21(L) 22 - 32 mmol/L [facility] Anion gap 12 2 - 15 mmol/L [facility] BUN 5(L) 6 - 25 mg/dL [facility] Creatinine 0.53(L) 0.60 - 1.10 mg/dL [facility] Glucose 75 70 - 199 mg/dL [facility] Comment: Interpretive Data Fasting glucose [...] 2022. Calcium 9.4 8.5 - 10.3 mg/dL [facility] Bilirubin, total 0.4 0.1 - 1.2 mg/dL [facility] Protein, pl 7.1 6.5 - 8.5 g/dL [facility] Albumin 3.7 3.5 - 5.0 g/dL [facility] Alk phos 72 40 - 130 Units/L [facility] ALT 20 7 - 45 Units/L [facility] AST 21 10 - 45 Units/L [facility] Blood 07/27/2024 4:00 PM CDT 07/27/2024 4:45 PM CDT Byron Tellez MD LAB BLOOD ORDERABLES Final Re sult [facility] [address] Department [place] [address] * Protein / creatinine ratio, urine, random (07/27/2024 4:00 PM CDT) Protein, ur, quant 25.0 mg/dL Comment: Interpretive Data No reference range established. Current interpretive data was last revised 2019. Creatinine Ur 157.3 mg/dL [facility] Comment: Interpretive Data No reference range established. Current interpretive data was last revised 2019. Protein/creatinin e ratio 158.9 0.0 - 180.0 mg/g CR [facility] Urine 07/27/2024 4:00 PM CDT 07/27/2024 4:44 PM CDT Byron Tellez MD LAB URINE ORDERABLES Final Re sult Performing Organization Address [facility] Co de Phone Number [facility] [address] [employer] [place] [employer] [address] * CBC with auto differential (07/27/2024 4:00 PM CDT) Pathologist [facility] WBC 8.9 3.8 - 9.9 K/cumm Hgb 13.0 11.9 - 15.5 g/dL [facility] Hct 37.9 35.6 - 45.5 % [facility] Plt 298 150 - 400 K/cumm [facility] MPV 10.0 9.1 - 12.3 fL [facility] RBC 4.25 3.90 - 5.20 M/cumm [facility] MCV 89.2 81.3 - 96.4 fL [facility] MCH 30.6 27.1 - 33.3 pg [facility] MCHC 34.3 32.3 - 35.7 g/dL [facility] RDW CV 14.1 11.1 - 14.9 % [facility] RDW SD 46.0 35.7 - 48.1 fL [facility] NRBC abs 0.00 0.00 - 0.01 K/cumm [facility] Blood 07/27/2024 4:00 PM CDT 07/27/2024 4:39 PM CDT Byron Tellez MD LAB BLOOD ORDERABLES Final Re sult Performing Organization Address City/[facility]/ZIP Co de Phone Number [facility] [address] Department [place] [employer] [place] [address] * (ABNORMAL) POCT urinalysis dipstick (07/27/2024 3:19 PM CDT) Glucose, ur, POC Negative Negative MG/DL Bilirubin, ur, POC Small Negative, Small, Moderate, Large Ketones, ur, POC 15.(A) Negative Specific [place], POC 1.020 1.003 - 1.030 Blood, ur, [...] Primary documented in this encounter Care Teams Secy Relationship Specialty Start Date End Date No, Physician PCP - General 02/25/24 documented as of this encounter
--- OUTSIDE RECORDS SUMMARY | 2024-10-10 01:47 | XMS_ITS | Encounter Summary ---
Author Organization [facility] Healthcare Address [address] [place] [address] Care Team Providers Care Cone Tender Name Role Phone No, Physician Primary Care Provider [phone] Encounter Details Date Type Department Care Team (Latest Contact Info) Description 07/27/2024 3:59 PM CDT - 07/27/2024 11:59 PM CDT Hospital Encounter [id number] [place] [address] Discharge Disposition: Discharge to home [...] week 07/28/2024 How often do you attend [facility] or episcopalian services? Never 07/28/2024 Do you belong to any clubs o r organizations such as bahai groups, unions, fraternal or athletic groups, or [...] staff should administer the PHQ-9) 0 07/28/2024 [facility] of Occupat ional [facility] - Occupational Stress Questionnaire Answer Date Recorded [...] things needed for daily living? No 07/28/2024 [place] Depression Scale Answer Date Recorded [place] Depression Scale Total 8 07/12/2024 The thought [...] time in the past 12 [facility], were you homeless or living in a nursing home (including now)? No 07/28/2024 Personal Safety Answer Date Recorded Getting School Help Needed Not on file 02/24 Comments Yes Sex and Gender Information Value Date Recorded Sex Assigned at Not on file Legal Sex Female 2:19 AM FIRE SPRINKLER DESIGNER Gender Identity Not on file Sexual Orientation [...] on filedocumented in this encounter Care Teams Cone Tender Relationship Specialty Start Date End Date No, Physician PCP - General 02/25/24 documented as of this encounter
--- OUTSIDE RECORDS SUMMARY | 2024-10-10 01:47 | XMS_ITS | Encounter Summary ---
Author Organization [facility] Healthcare Address [address] [place] [address] Care Team Providers Care Vice Investigator Name Role Phone No, Physician Primary Care Provider Reason for Visit * Auth/Cert (Routine) Specialty Diagnoses / Procedures Referred By Contac t Referred To Contact Diagnoses Preeclampsia, unspecified trimester Hypertension Procedures N/A Referral ID Status Reason Start Date Expiration Date Visits Re quested Visits Authorized [id number] 1 1 Encounter Details Date Type Department Care Team (Late st Contact Info) Description 08/16/2024 8:15 AM INJECTION MOLDING OPERATOR Ancillary Procedure [address] [place] [address] Social History Tobacco Use Types Packs/Day Years Used Date Smoking Tobacco: Never Smokeless Tobacco: Never [facility] Utilities Answer Date Recorded In the past 12 months has e electric, gas, oil, or water [employer] threatened to shut off services in your [...] often do you attend chur ch or adventist services? Never 07/29/2024 Do you belong to any clubs o r organizations such as mormonism groups, unions, fraternal or athletic groups, or [...] staff should administer the PHQ-9) 0 07/28/2024 [facility] - Occupational Stress Questionnaire Answer Date [...] things needed for daily living? No 07/29/2024 [place] Depression Scale Answer Date Recorded [place] Depression Scale Total 8 07/12/2024 The thought [...] any time in the past 12 m [facility], were you homeless or living in a correction (including now)? No 07/29/2024 Personal Safety Answer Date Recorded Have you ever been in or are you currently in a harmful physical or emotional relationship or is someone making you feel afraid or unsafe? Denies 07/29/2024 Comments Yes Sex and Gender Information Value Date Recorded Sex Assigned at Not on file Legal Sex Female 2:19 AM INJECTION MOLDING OPERATOR Gender Identity Not on file Sexual Orientation Not on file documented as of this encounter Plan of Treatment Not on file documented as of this encounter Procedures Procedure Name Priority Date/Time Associated Diagnosis Comments US OB LIMITED IP Routine 08/16/2024 8:35 AM INJECTION MOLDING OPERATOR documented in this encounter Results * US Ob Limited (08/16/2024 8:35 AM INJECTION MOLDING OPERATOR) Fetus# Fetus1 VIEWPOINT Placenta Details anterior VIEWPOINT Presentation Transverse, maternal right-low VIEWPOINT Fetus# Fetus2 VIEWPOINT Placenta Details anterior VIEWPOINT Presentation Vertex; Maternal left- high VIEWPOINT Anatomical Region Laterality Modality Abdomen N/A Ultrasound 08/16/2024 8:36 AM INJECTION MOLDING OPERATOR Impressions 08/16/2024 2:23 PM INJECTION MOLDING OPERATOR Diamniotic (presumed MCDA) TIUP at 29w1d who is admitted for preE with severe features who presents for ??TTTS screen.Chorionicity was not fully assessed but 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 Anatomic surveys were also completed [...] on filedocumented in this encounter Care Teams Vice Investigator Relationship Specialty Start Date End Date No, Physician PCP - General 02/25/24 documented as of this encounter
--- OUTSIDE RECORDS SUMMARY | 2024-10-10 01:47 | XMS_ITS | Encounter Summary ---
Author Organization [facility] Healthcare Address [address] [place] [address] Care Team Providers Care Lodging Facilities Attendant Name Role Phone No, Physician Primary Care Provider [phone] Reason for Visit * Reason Onset Date Comments admission 08/03/2024 Encounter Details Date Type Department Care Team (Late st Contact Info) Description 08/03/2024 Telephone [facility] [address] [place] [address] Dia Mantilla MD [address] [place] [address] [address] [place] [address] admission Social History Tobacco Use Types Packs/Day Years Used Date Smoking Tobacco: Never Smokeless Tobacco: Never [place] Utilities Answer Date Recorded In the past 12 months has [facility] electric, gas, oil, or water [...] you attend chur or spiritism services? Never 07/29/2024 Do you belong to any clubs o r organizations such as tenriism groups, unions, fraternal or athletic groups, or [...] staff should administer the PHQ-9) 0 07/28/2024 [facility] of Occupat ional Health - [...] things needed for daily living? No 07/29/2024 [place] Depression Scale Answer Date Recorded [place] Depression Scale Total 8 07/12/2024 The thought [...] on file Legal Sex Female 2:19 AM STRIKER OUT Gender Identity Not on file Sexual Orientation Not on file documented as of this encounter Miscellaneous Notes * Telephone Encounter - Beata Joy RN - 08/03/2024 9:14 AM CDT [phone] Dr. Gisell Simeon from [facility] called to notify Dr. Mantilla that patient has been admitted to [facility] forPre- Eclampsia. Patient is currently 27.2 weeks with Bill[place]/Di twins. She stated that patient will be admitted and remain in the hospital with them until delivery. Peds will also be notified due to baby A having aortic dilation. GITA Noel, RN documented in this encounter Plan of Treatment Not on file documented as of this encounter Visit Diagnoses Not on filedocumented in this encounter Care Teams Lodging Facilities Attendant Relationship Specialty Start Date End Date No, Physician PCP - General 02/25/24 documented as of this encounter
--- OUTSIDE RECORDS SUMMARY | 2024-10-10 01:47 | XMS_ITS | Encounter Summary ---
Author Organization [facility] Healthcare Address [address] [place] [address] Care Team Providers Care Site Lead Name Role Phone No, Physician Primary Care Provider [phone] Reason for Visit * Auth/Cert (Routine) Specialty Diagnoses / Procedures Referred By Contac t Referred To Contact Diagnoses Preeclampsia, unspecified trimester Hypertension Procedures N/A Referral ID Status Reason Start Date Expiration Date Visits Re quested Visits Authorized [id number] 1 1 Encounter Details Date Type Department Care Team (Late st Contact Info) Description 08/24/2024 12:30 PM LABOR CREW SUPERVISOR Ancillary Procedure [address] [place] [address] Social History Tobacco Use Types Packs/Day Years Used Date Smoking Tobacco: Never Smokeless Tobacco: Never [facility] Utilities Answer Date Recorded In the past 12 months has e electric, gas, oil, or water [employer] threatened to shut off services in your [...] often do you attend chur ch or synagogue services? Never 07/29/2024 Do you belong to [...] staff should administer the PHQ-9) 0 07/28/2024 [facility] - Occupational Stress Questionnaire Answer [...] things needed for daily living? No 07/29/2024 [place] Depression Scale Answer Date Recorded [place] Depression Scale Total 8 07/12/2024 The thought [...] living in a alf (including now)? No 07/29/2024 Personal Safety Answer Date Recorded Have you ever been in or are you currently in a harmful physical or emotional relationship or is someone making you feel afraid or unsafe? Denies 07/29/2024 Comments Yes Sex and Gender Information Value Date Recorded Sex Assigned at Not on file Legal Sex Female 2:19 AM LABOR CREW SUPERVISOR Gender Identity Not on file Sexual Orientation Not on file documented as of this encounter Plan of Treatment Not on file documented as of this encounter Procedures Procedure Name Priority Date/Time Associated Diagnosis Comments US OB FOLLOW UP IP Routine 08/24/2024 9:37 AM LABOR CREW SUPERVISOR documented in this encounter Results * US Ob Follow Up (08/24/2024 9:37 AM LABOR CREW SUPERVISOR) Fetus# Fetus1 VIEWPOINT Estimated Weight 1,348 g&grams VIEWPOINT Placenta Details anterior VIEWPOINT Presentation Vertex; Maternal right- low VIEWPOINT Fetus# Fetus2 VIEWPOINT Estimated Weight 1,784 g&grams VIEWPOINT Placenta Details anterior VIEWPOINT Presentation Vertex; Maternal left- high (presenting) VIEWPOINT Anatomical Region Laterality Modality Abdomen N/A Ultrasound 08/24/2024 9:37 AM LABOR CREW SUPERVISOR Impressions 08/24/2024 2:06 PM LABOR CREW SUPERVISOR 1. Presumed Mo/Di twin IUP at 30w [...] on filedocumented in this encounter Care Teams Site Lead Relationship Specialty Start Date End Date No, Physician PCP - General 02/25/24 documented as of this encounter
--- OUTSIDE RECORDS SUMMARY | 2024-10-10 01:47 | XMS_ITS | Encounter Summary ---
Author Organization [facility] Healthcare Address [address] [place] [address] Care Team Providers Care Inspector Ball Points Name Role Phone No, Physician Primary Care Provider [phone] Reason for Referral * Diagnostic Imaging (Routine) - Pending Review Specialty Diagnoses / Procedures Referred By Contac t Referred To Contact Diagnoses High risk , antepartum Monochorionic diamniotic twin , antepartum Procedures US OB Follow up with US Transvaginal (C) Dia Mantilla MD [address] [place] [address] DR BAUTISTA [address] [place] [address] Phone: tel: [place] [phone] [place] [address] Referral ID Status Reason Start Date Expiration Date V isits Requested Visits Authorized [id number] Pending Review 05/19/2024 06/18/2025 1 1 Reason for Visit * Diagnostic Imaging (Routine) - Pending Review Specialty Diagnoses / Procedures Referred By Contac t Referred To Contact Diagnoses High risk , antepartum Monochorionic diamniotic twin , antepartum Procedures US OB Follow up with US Transvaginal (C) Dia Mantilla MD [address] [place] [address] DR BAUTISTA [address] [place] [address] Phone: tel: [facility] [address] [place] [address] Referral ID Status Reason Start Date Expiration Date V isits Requested Visits Authorized [id number] Pending Review 05/19/2024 06/18/2025 1 1 Encounter Details Date Type Department Care Team (Latest Contact Info) Description 05/31/2024 11:08 AM CDT - 05/31/2024 11:59 PM CDT Hospital Encounter [facility] Maternal Medicine Ultrasound-[facility] [address] [place] [id number] High risk , antepartum; Monochorionic diamniotic twin [...] staff should administer the PHQ-9) 0 05/18/2024 [place] Depression Scale Answer Date Recorded [place] Depression Scale Total 10 05/20/2024 The thought of harming myself has occurred to me . 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
--- OUTSIDE RECORDS SUMMARY | 2024-10-10 01:47 | XMS_ITS | Encounter Summary ---
Author Organization [facility] Healthcare Address [address] [place] [address] Care Team Providers Care Foreign Exchange Services Manager Name Role Phone No, Physician Primary Care Provider [phone] Reason for Referral * Diagnostic Imaging (Routine) - Authorized Specialty Diagnoses / Procedures Referred By Contac t Referred To Contact Diagnoses Twin , unable to determine number of placenta and number of amniotic sacs, antepartum, unspecified trimester Maternal varicella, non-immune Supervision of high-risk , unspecified trimester Procedures US OB BPP with US Limited (C) Dia Mantilla MD [address] [place] [address] DR BAUTISTA [address] [place] [address] Phone: tel: [place] [phone] [place] [address] Referral ID Status Reason Start Date Expiration Date V isits Requested Visits Authorized [id number] Authorized 05/31/2024 06/30/2025 2 2 * Diagnostic Imaging (Routine) - Authorized Specialty Diagnoses / Procedures Referred By Contac t Referred To Contact Diagnoses Twin , unable to determine number of placenta and number of amniotic sacs, antepartum, unspecified trimester Maternal varicella, non-immune Supervision of high-risk , unspecified trimester Procedures US OB BPP with US Follow Up (C) Dia Mantilla MD [address] [place] [address] DR BAUTISTA [address] [place] [address] Phone: tel: [facility] [address] [place] [address] Referral ID Status Reason Start Date Expiration Date V isits Requested Visits Authorized [id number] Authorized 05/31/2024 06/30/2025 2 2 * Diagnostic Imaging (Routine) - Authorized Specialty Diagnoses / Procedures Referred By Contac t Referred To Contact Diagnoses Twin , unable to determine number of placenta and number of amniotic sacs, antepartum, unspecified trimester Maternal varicella, non-immune Supervision of high-risk , unspecified trimester Procedures US OB Follow UP with US BPP with Dopplers (C) Dia Mantilla MD [address] [facility] [address] BAUTISTA [address] [place] [address] Phone: tel: [place] [phone] [place] [address] Referral ID Status Reason Start Date Expiration Date V isits Requested Visits Authorized [id number] Authorized 05/31/2024 06/30/2025 1 1 * Diagnostic Imaging (Routine) - Authorized Specialty Diagnoses / Procedures Referred By Contac t Referred To Contact Diagnoses Twin , unable to determine number of placenta and number of amniotic sacs, antepartum, unspecified trimester Maternal varicella, non-immune Supervision of high-risk , unspecified trimester Procedures US Ob Transvaginal Dia Mantilla MD [address] [place] [address] DR BAUTISTA [address] [place] [address] Phone: tel: [place] [phone] [place] [address] Referral ID Status Reason Start Date Expiration Date V isits Requested Visits Authorized [id number] Authorized 05/31/2024 06/30/2025 1 1 * Diagnostic Imaging (Routine) - Authorized Specialty Diagnoses / Procedures Referred By Contac t Referred To Contact Diagnoses Twin , unable to determine number of placenta and number of amniotic sacs, antepartum, unspecified trimester Maternal varicella, non-immune Supervision of high-risk , unspecified trimester Procedures US OB Follow up with Dopplers (C) Dia Mantilla MD [address] [place] [address] [address] BAUTISTA [address] [place] [address] Phone: tel: [facility] [address] [place] [address] Referral ID Status Reason Start Date Expiration Date V isits Requested Visits Authorized [id number] Authorized 05/31/2024 06/30/2025 1 1 Encounter Details Date Type Department Care Team (Late st Contact Info) Description 05/31/2024 Orders Only [facility] Maternal Medicine at [facility] [address] [facility] [address] [place] [address] Byron Tellez MD [address] [address] Supervision of high-risk , unspecified [...] staff should administer the PHQ-9) 0 05/18/2024 [place] Depression Scale Answer Date Recorded [place] Depression Scale Total 10 05/20/2024 The thought of harming myself has occurred to me . 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
--- OUTSIDE RECORDS SUMMARY | 2024-10-10 01:47 | XMS_ITS | Encounter Summary ---
Author Organization [facility] Healthcare Address [address] [place] [address] Care Team Providers Care Waiter/Waitress Counter Name Role Phone No, Physician Primary Care Provider [phone] Reason for Referral * Diagnostic Imaging (Routine) - Closed Specialty Diagnoses / Procedures Referred By Urbano salinas Referred To Contact Radiology Diagnoses Ultrasound scan done for inability to hear heart tones Procedures US Ob Limited Dia Mantilla MD [address] [place] [address] [address] [place] [address] Phone: tel: [facility] [address] [place] [address] [address] [place] [address] Phone: tel: fax: Referral ID Status Reason Start Date Expiration Date Visits Re quested Visits Authorized [id number] Closed 06/13/2024 07/13/2025 1 1 Reason for Visit * Reason Comments Routine Visit 20 weeks twinsPt. Will have anatomy scan with [facility] on 06/15/2024 Encounter Details Date Type Department Care Team (Late st Contact Info) Description 06/13/2024 11:45 AM CDT Routine [facility] at [address] [address] Dia Mantilla MD [address] [place] [address] DR BAUTISTA [address] [place] [address] Encounter for supervision of normal first [...] staff should administer the PHQ-9) 0 05/18/2024 [place] Depression Scale Answer Date Recorded [place] Depression Scale Total 10 05/20/2024 The thought of harming myself has occurred to me . 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 CUSTOMER SUPPORT COORDINATOR Gender Identity Not on file Sexual Orientation [...] BLOOD ORDERABLE S Final Result [facility] Department [place] [address] * (ABNORMAL) POCT OB urine short dip (glucose, protein, ketones) (06/13/2024 12:19 PM CDT) Glucose, ur, POC Negative Negative MG/DL Protein, ur, POC Negative Negative Ketones, ur, POC Moderate(A) Negative Lot Number [id number] Urine 06/13/2024 12:1 9 PM CDT Dia [...] complication documented in this encounter Care Teams Waiter/Waitress Counter Relationship Specialty Start Date End Date No, Physician PCP - General 02/25/24 documented as of this encounter
--- OUTSIDE RECORDS SUMMARY | 2024-10-10 01:48 | XMS_ITS | Encounter Summary ---
Author Organization [facility] Healthcare Address [address] [place] [address] Care Team Providers Care Facility Attendant Name Role Phone No, Physician Primary Care Provider [phone] Encounter Details Date Type Department Care Team (Late st Contact Info) Description 03/04/2024 Telephone [facility] [address] [place] [address] [address] [place] [address] Sunni Physician Social History Tobacco Use Types Packs/Day Years Used Date Smoking Tobacco: Never Personal Safety Answer Date Recorded Getting School Help Needed Not on file 02/24 Comments Unknown Sex and Gender Information Value Date Recorded Sex Assigned at Not on file Legal Sex Female 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
--- OUTSIDE RECORDS SUMMARY | 2024-10-10 01:48 | XMS_ITS | Encounter Summary ---
Author Organization [facility] Healthcare Address [address] [place] [address] Care Team Providers Care Slater Apprentice Name Role Phone No, Physician Primary Care Provider [phone] Reason for Visit * Reason Comments Ultrasound * Diagnostic Imaging (Routine) - Canceled Specialty Diagnoses / Procedures Referred By Contac t Referred To Contact Diagnoses Encounter to establish gestational age using ultrasound Procedures US Ob Under 14 Weeks Dia Mantilla MD [address] [place] [address] [address] Phone: tel: [facility] [address] [place] [address] [place] [address] Phone: tel: fax: Referral ID Status Reason Start Date Expiration Date V isits Requested Visits Authorized [id number] Canceled 03/01/2024 03/31/2025 1 1 Encounter Details Date Type Department Care Team (Latest Contact Info) Description 03/22/2024 8:00 AM CDT Ancillary Procedure [facility] [address] [place] [address] [address], [place] [address] Encounter to establish gestational age using ultrasound Social History Tobacco Use Types Packs/Day Years Used Date Smoking Tobacco: Never Personal Safety Answer Date Recorded Getting School Help Needed Not on file 02/24 Comments Unknown Sex and Gender Information Value Date Recorded Sex Assigned at Not on file Legal Sex Female 2: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
--- OUTSIDE RECORDS SUMMARY | 2024-10-10 01:48 | XMS_ITS | Encounter Summary ---
Author Organization [facility] Healthcare Address [address] [place] [address] Care Team Providers Care Barber Shop Operator Name Role Phone No, Physician Primary Care Provider [phone] Reason for Visit * Reason Comments Confirmation Encounter Details Date Type Department Care Team (Latest Contact Info) Description 03/01/2024 9:00 AM CDT Clinical Support [address] [place] [address] Missed period (Primary Dx); Encounter to establish gestational age using ultrasound; Screening, , for anatomic survey Social History Tobacco Use Types Packs/Day Years Used Date Smoking Tobacco: Never Personal Safety Answer Date Recorded Getting School Help Needed Not on file 02/24 Comments Unknown Sex and Gender Information Value Date Recorded Sex Assigned at Not on file Legal Sex Female 2:19 AM INSTRUCTOR OF SOCIOLOGY Gender Identity Not on file Sexual Orientation [...] survey documented in this encounter Care Teams Barber Shop Operator Relationship Specialty Start Date End Date No, Physician PCP - General 02/25/24 documented as of this encounter
--- OUTSIDE RECORDS SUMMARY | 2024-10-10 01:48 | XMS_ITS | Encounter Summary ---
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
--- OUTSIDE RECORDS SUMMARY | 2024-10-10 01:48 | XMS_ITS | Encounter Summary ---
Author Organization [facility] Healthcare Address [address] [place] [address] Care Team Providers Care Quality Manager Name Role Phone No, Physician Primary Care Provider [phone] Encounter Details Date Type Department Care Team (Late st Contact Info) Description 05/12/2024 Telephone [facility] [address] [place] [address] [address] [place] [address] No, Physician Social History Tobacco [...] on file Legal Sex Female 2:19 AM MAINSPRING FORMER BRACE END Gender Identity Not on file Sexual Orientation Not on file documented as of this encounter Miscellaneous Notes * Telephone Encounter - Fabricio Mead - 05/12/2024 8:18 AM CDT LVM to get pt rescheduled in office documented in this encounter Plan of Treatment Not on file documented as of this encounter Visit Diagnoses Not on filedocumented in this encounter Care Teams Quality Manager Relationship Specialty Start Date End Date No, Physician PCP - General 02/25/24 documented as of this encounter
--- OUTSIDE RECORDS SUMMARY | 2024-10-10 01:48 | XMS_ITS | Encounter Summary ---
Author Organization [facility] Healthcare Address [address] [place] [address] Care Team Providers Care Medical Laboratory Technical Officer Name Role Phone No, Physician Primary Care Provider [phone] Reason for Visit * Reason Comments Follow-up Encounter Details Date Type Department Care Team (Late st Contact Info) Description 05/31/2024 1:30 PM CDT Office Visit [facility] Maternal Medicine at [facility] [address] [facility] [address] [place] [phone] Nancy Be, STATION USHER [address] [facility] [address] [place] [address] Supervision of high-risk , second [...] staff should administer the PHQ-9) 0 05/18/2024 [place] Depression Scale Answer Date Recorded [place] Depression Scale Total 10 05/20/2024 The thought of harming myself has occurred to me . 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 HOME COORDINATOR Gender Identity Not on file Sexual [...] with Follow-up HPI Suki returns to the [facility] office at 16 weeks and 2 days [...] 10/31/24 - primary OB is Dr. Mantilla, [facility] -Received Myriad Results: Foresight, Carrier Screen: [...] Large Ketones, ur, POC 15.(A) Negative Specific Feura Bush, POC 1.025 1.003 - 1.030 Blood, ur, [...] Primary documented in this encounter Care Teams Medical Laboratory Technical Officer Relationship Specialty Start Date End Date No, Physician PCP - General 02/25/24 documented as of this encounter
--- OUTSIDE RECORDS SUMMARY | 2024-10-10 01:48 | XMS_ITS | Encounter Summary ---
Author Organization [facility] Healthcare Address [address] [place] [address] Care Team Providers Care Mechanical Engineering Technologist Name Role Phone No, Physician Primary Care Provider [phone] Reason for Referral * Consultation (Routine) - Closed Specialty Diagnoses / Procedures Referred By Urbano t Referred To Contact Maternal and Medicine Diagnoses Monochorionic diamniotic twin in first trimester Dia Mantilla MD [address] [place] [address] [address] BA[address] [place] [address] Phone: tel: [facility] at [facility] [address] [facility] [address] [place] [address] Phone: tel: fax: Referral ID Status Reason Start Date Expiration Date V isits Requested Visits Authorized [id number] Closed Specialty Services Required 04/25/2024 05/25/2025 1 1 Question Answer Please select the performing region: [facility] [[id number]] Please select the performing department: [facility] [[id number]] # of visits: 1 Comments Brown/Di twins Encounter Details Date Type Department Care Team (Late st Contact Info) Description 04/25/2024 Orders Only [facility] [address] [facility] [address] [place] [phone] Dia Mantilla MD [address] [place] [address] [address]A [address] [place] [address] Monochorionic diamniotic twin in first trimester [...] on file Legal Sex Female 2:19 AM OPENER VERIFIER PACKER CUSTOMS Gender Identity Not on file Sexual Orientation Not on file documented as of this encounter Progress Notes * Nasim Navas MA - 04/25/2024 8:57 AM CDT [phone] [facility] detailed message regarding referral. documented in this encounter Plan of Treatment Scheduled Referrals Name Type Priority Associated Diagnoses Order Schedule Ambulatory Referral to Maternal - Medicine (Perinatology) Outpatient Referral Routine Monochorionic diamniotic twin in first trimester Expected: 05/09/2024 (Approximate), Expires: 04/25/2025 documented as of this encounter Visit Diagnoses Diagnosis Monochorionic diamniotic twin in first trimester- Primary documented in this encounter Care Teams Mechanical Engineering Technologist Relationship Specialty Start Date End Date No, Physician PCP - General 5/23/24 documented as of this encounter
--- OUTSIDE RECORDS SUMMARY | 2024-10-10 01:48 | XMS_ITS | Encounter Summary ---
Author Organization [facility] Healthcare Address [address] [place] [address] Care Team Providers Care Clinical Therapist Name Role Phone No, Physician Primary Care Provider [phone] Encounter Details Date Type Department Care Team (Late st Contact Info) Description 02/25/2024 Telephone [facility] [address], [place] [address] No, Physician Social History Tobacco Use Types Packs/Day Years Used Date Smoking Tobacco: Never Personal Safety Answer Date Recorded Getting School Help Needed Not on file 02/24 Comments Unknown Sex and Gender Information Value Date Recorded Sex Assigned at Not on file Legal Sex Female 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
--- OUTSIDE RECORDS SUMMARY | 2024-10-10 01:48 | XMS_ITS | Encounter Summary ---
Author Organization [facility] Healthcare Address [address] [place] [address] Care Team Providers Care Filenet Architect Name Role Phone No, Physician Primary Care Provider [phone] Encounter Details Date Type Department Care Team (Late st Contact Info) Description 04/25/2024 Tele[place] [facility] [place] [facility] [address] [facility] [address] [place] [id number] Tasneem Funes, KRYSTEN Social History Tobacco [...] on file Legal Sex Female 2:19 AM DOCUMENT PROCESSOR Gender Identity Not on file Sexual Orientation [...] on filedocumented in this encounter Care Teams Filenet Architect Relationship Specialty Start Date End Date No, Physician PCP - General 02/25/24 documented as of this encounter
--- OUTSIDE RECORDS SUMMARY | 2024-10-10 01:48 | XMS_ITS | Encounter Summary ---
Author Organization [facility] Healthcare Address [address] [place] [address] Care Team Providers Care Tomb Maker Helper Name Role Phone No, Physician Primary Care Provider [phone] Reason for Visit * Reason Comments Initial Consult Encounter Details Date Type Department Care Team (Late st Contact Info) Description 05/18/2024 1:00 PM CDT Office Visit [facility] Maternal Medicine at [facility] [address] [facility] [address] [place] [phone] Byron Tellez MD [address] [address] Unspecified high-risk (Primary Dx) Social [...] on file Legal Sex Female 2:19 AM RECYCLABLE 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 Suki Leon (1995) is a [...] to the Maternal Medicine practice here at [facility] for consultation and presumed co management of monochorionic diamniotic twin . Suki Leon (1995) primary electronics technician is Dr. Dia Mantilla. Currently Suki Leon (1995) is planning delivery at [facility] under the care of Dr. 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 She was . Her , Florentino Leon, [...] any separately reportable services. Voice recognition software Synchro Direct was used to dictate and transcribe this document.Community Service Representative variances may occur. Despite proof reading, typographical [...] Large Ketones, ur, POC Negative Negative Specific Joseph, POC 1.010 1.003 - 1.030 Blood, ur, [...] 05/18/2024 added in this encounter Care Teams Tomb Maker Helper Relationship Specialty Start Date End Date No, Physician PCP - General 02/25/24 documented as of this encounter
--- OUTSIDE RECORDS SUMMARY | 2024-10-10 01:48 | XMS_ITS | Encounter Summary ---
Author Organization [facility] Healthcare Address [address] [place] [address] Care Team Providers Care Survey Research Center Director Name Role Phone No, Physician Primary Care Provider [phone] Reason for Referral * Diagnostic Imaging (Routine) - Pending Review Specialty Diagnoses / Procedures Referred By Contac t Referred To Contact Diagnoses High risk , antepartum Monochorionic diamniotic twin , antepartum Procedures US OB Heart with US Follow up (C) Dia Mantilla MD [address] [place] [address] [address] [place] [address] Phone: tel: [place] [address] [place] [address] Referral ID Status Reason Start Date Expiration Date V isits Requested Visits Authorized [id number] Pending Review 05/19/2024 06/18/2025 1 1 * Diagnostic Imaging (Routine) - Pending Review Specialty Diagnoses / Procedures Referred By Contac t Referred To Contact Diagnoses High risk , antepartum Monochorionic diamniotic twin , antepartum Procedures US OB Follow up with US Transvaginal (C) Dia Mantilla MD [address] [place] [address] [address] [place] [address] Phone: tel: [facility] [address] [place] [address] Referral ID Status Reason Start Date Expiration Date V isits Requested Visits Authorized [id number] Pending Review 05/19/2024 06/18/2025 2 2 * Diagnostic Imaging (Routine) - Pending Review Specialty Diagnoses / Procedures Referred By Urbano t Referred To Contact Diagnoses High risk , antepartum Monochorionic diamniotic twin , antepartum Procedures US OB Follow up with US Transvaginal (C) Dia Mantilla MD [address] [place] [address] [address] BA[address] [place] [address] Phone: tel: [address] [phone] Referral ID Status Reason Start Date Expiration Date V isits Requested Visits Authorized [id number] Pending Review 05/19/2024 06/18/2025 1 1 Encounter Details Date Type Department Care Team (Late st Contact Info) Description 05/19/2024 Orders Only [facility] Maternal Medicine Ultrasound[facility] [address] [place] [address] Radha Hicks, KRYSTEN Monochorionic diamniotic [...] staff should administer the PHQ-9) 0 05/18/2024 Mclean Depression Scale Answer Date Recorded Mclean Depression Scale Total 10 05/20/2024 The thought of harming myself has occurred to me . 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 This is [id number] percentile for assigned gestational age. The interval [...] in twin B. us Dia Mantilla MD [facility] US PROCEDURE S Final Result documented [...] antepartum documented in this encounter Care Teams Survey Research Center Director Relationship Specialty Start Date End Date No, Physician PCP - General 02/25/24 documented as of this encounter
--- OUTSIDE RECORDS SUMMARY | 2024-10-10 01:48 | XMS_ITS | Encounter Summary ---
Author Organization [facility] Healthcare Address [address] [place] [address] Care Team Providers Care Lead Performance Support Analyst Name Role Phone No, Physician Primary Care Provider [phone] Encounter Details Date Type Department Care Team (Late st Contact Info) Description 03/14/2024 Telephone [facility] 4 [facility] [address] [place] [address] Dia Mantilla MD 4 [facility] [address] [place] [address] Social History Tobacco Use Types Packs/Day Years Used Date Smoking Tobacco: Never Personal Safety Answer Date Recorded Getting School Help Needed Not on file 02/24 Comments Unknown Sex and Gender Information Value Date Recorded Sex Assigned at Not on file 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 has surgery the morning of 04/15, so her NOB needs to be moved elsewhere. documented in this encounter Plan of Treatment Not on file documented as of this encounter Visit Diagnoses Not on filedocumented in this encounter Care Teams Lead Performance Support Analyst Relationship Specialty Start Date End Date Sunni Physician PCP - General 02/25/24 documented as of this encounter
--- OUTSIDE RECORDS SUMMARY | 2024-10-10 01:48 | XMS_ITS | Encounter Summary ---
Author Organization [facility] Healthcare Address [address] [place] [address] Care Team Providers Care Tile Burner Name Role Phone No, Physician Primary Care Provider [phone] Reason for Referral * Diagnostic Imaging (Routine) - Closed Specialty Diagnoses / Procedures Referred By Contac t Referred To Contact Diagnoses BMI 40.0-44.9, adult (HCC) Irritable bowel syndrome, unspecified type Monochorionic diamniotic twin , antepartum Long-term current use of antidepressant Anxiety disorder, unspecified type Procedures US OB Detail Anatomy with US Transvaginal (C) Dia Mantilla MD [address] [place] [address] [address] [place] [address] Phone: tel: [facility] [address] [place] [address] Referral ID Status Reason Start Date Expiration Date Visits Re quested Visits Authorized [id number] Closed 05/18/2024 06/17/2025 1 1 * Diagnostic Imaging (Routine) - Closed Specialty Diagnoses / Procedures Referred By Contac t Referred To Contact Diagnoses BMI 40.0-44.9, adult (HCC) Irritable bowel syndrome, unspecified type Monochorionic diamniotic twin , antepartum Long-term current use of antidepressant Anxiety disorder, unspecified type Procedures US Umbilical Artery Doppler Dia Mantilla MD [address] [place] [address] [address] [place] [address] Phone: tel: [facility] [address] [place] [address] Referral ID Status Reason Start Date Expiration Date Visits Re quested Visits Authorized [id number] Closed 05/18/2024 06/17/2025 4 4 * Diagnostic Imaging (Routine) - Authorized Specialty Diagnoses / Procedures Referred By Contac t Referred To Contact Diagnoses BMI 40.0-44.9, adult (HCC) Irritable bowel syndrome, unspecified type Monochorionic diamniotic twin , antepartum Long-term current use of antidepressant Anxiety disorder, unspecified type Procedures US Ob Transvaginal Dia Mantilla MD [address] [facility] [address] [place] [address] Phone: tel: [facility] [address] [place] [address] Referral ID Status Reason Start Date Expiration Date V isits Requested Visits Authorized [id number] Authorized 05/18/2024 06/17/2025 4 4 * Diagnostic Imaging (Routine) - Closed Specialty Diagnoses / Procedures Referred By Contac t Referred To Contact Diagnoses BMI 40.0-44.9, adult (HCC) Irritable bowel syndrome, unspecified type Monochorionic diamniotic twin , antepartum Long-term current use of antidepressant Anxiety disorder, unspecified type Procedures US OB Limited with Dopplers (C) Dia Mantilla MD [address] [facility] [address] [place] [address] Phone: tel: [facility] [address] [place] [address] Referral ID Status Reason Start Date Expiration Date Visits Re quested Visits Authorized [id number] Closed 05/18/2024 06/17/2025 3 3 Encounter Details Date Type Department Care Team (Late st Contact Info) Description 05/18/2024 Orders Only [facility] Maternal Medicine at [facility] [address] [facility] [address] [place] [phone] Dakota, Francine Monochorionic diamniotic twin , antepartum [...] on file 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
--- OUTSIDE RECORDS SUMMARY | 2024-10-10 01:48 | XMS_ITS | Encounter Summary ---
Author Organization [facility] Healthcare Address [address] [place] [address] Care Team Providers Care Radio Electronics Technician Name Role Phone No, Physician Primary Care Provider [phone] Reason for Visit * Reason Comments Initial Visit Encounter Details Date Type Department Care Team (Late st Contact Info) Description 04/15/2024 3:15 PM CDT Initial [facility] [address] [place] [address] [address] [place] [phone] Dia Mantilla MD 4 [facility] [address] [place] [address] GA: [id number] Social History Tobacco Use Types [...] staff should administer the PHQ-9) 0 05/18/2024 Elizabeth Depression Scale Answer Date Recorded Elizabeth Depression Scale Total 10 05/20/2024 The thought of harming myself has occurred to me . 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 Physical OB Exam: Last filed by Dai Mantilla MD on 04/15/2024 5:52 PM General [...] found out that that would be in [place] he used an expletive to express that [...] found out that that would be in [place] he used an expletive to express that [...] current clinical standards) Comment:Testing performed by : [facility], [address] [facility] [address] Organism (CLINICALLY INSIGNIFICANT GROWTH [facility] Urine, clean voided 05/20/2024 2:47 PM CDT 05/20/2024 7:35 PM CDT Narrative [facility] - 05/22/2024 9:59 AM CDT Testing performed by [facility] Microbiology Laboratory ([phone]) us Dia Mantilla MD LAB MICROBIOLOGY - GENERAL ORDERABLES Final Result BIA SWEET [address] [employer] [place], [place] [id number] * (ABNORMAL) Vitamin D 25 hydroxy (05/20/2024 2:47 PM CDT) Pathologist [facility] Vitamin D 25-OH 20(L) 30 - 80 ng/mL Blood 05/20/2024 2:47 PM CDT 05/20/2024 3:12 PM CDT Dia Mantilla MD LAB BLOOD ORDERABLE S Final Result Performing Organization Address [facility] Co de Phone Number BIA [address] [place] [address] * (ABNORMAL) Varicella Zoster IgG antibody Blood (05/20/2024 2:47 PM CDT) [facility] VZV IgG Equivocal( A) Reactive Comment: Equivocal: Presence or absence of detectable antibodies to Varicella-zoster virus cannot be determined. ??Submit new specimen if clinically indicated. Testing performed by: [facility], [address] [place] [address], [place]., [address] Blood 05/20/2024 2:47 PM CDT 05/21/2024 5:11 PM CDT Dia Mantilla MD LAB MICROBIOLOGY - GENERAL ORDERABLES Final Result Performing Organization Address [facility] Co de Phone Number BIA [address] [address] of [employer] [place], [place] [phone] * Rubella IgG antibody Blood (05/20/2024 2:47 PM CDT) Pathologist [facility] Rubella IgG Reactive Comment: Reactive: Results suggest response to immunization or prior exposure to the virus. Testing performed by: [facility], [address] [place] [address]., [id number] Blood 05/20/2024 2:47 PM CDT 05/21/2024 5:11 PM CDT Dia Mantilla MD LAB MICROBIOLOGY - GENERAL ORDERABLES Final Result Performing Organization Address [facility] Co de Phone Number BIA SWEET [address] [address] [facility] [place] [address] * RPR Blood (05/20/2024 2:47 PM CDT) RPR Nonreactive Nonreactive Blood 05/20/2024 2:47 PM CDT 05/20/2024 3:12 PM CDT Result [facility] Dia Mantilla MD LAB MICROBIOLOGY - GENERAL ORDERABLES Final Result Performing Organization Address [facility] de Phone Number BIA SWEET [address] [facility] [place] [address] * HIV 1/2 Antibody plus p24 Antigen Blood (05/20/2024 2:47 PM CDT) Pathologist [facility] HIV 1/2 ab + p24 ag Nonreactive Nonreactive Comment: Nonreactive for HIV-1 antigen and HIV-1/HIV-2 antibodies. No laboratory evidence of HIV infection. If acute HIV infection is suspected, consider testing for HIV-1 RNA. Blood 05/20/2024 2:4 7 PM CDT 05/20/2024 3:12 PM CDT Result [facility] Dia Mantilla MD LAB MICROBIOLOGY - GENERAL ORDERABLES Final Result Performing Organization Address [facility] de Phone Number BIA SWEET [address] [address] [facility] [place] [address] * Hepatitis C antibody Blood (05/20/2024 2:47 PM CDT) Pathologist [facility] Hep C Ab Nonreactive Nonreactive Comment: Interpretive [...] Final Result Performing Organization Address [facility] Co de Phone Number BIA [address] [address] [facility] [place] [address] * Hepatitis B Surface Antigen Blood (05/20/2024 2:47 PM CDT) HepBsAg Nonreactive Nonreactive Blood 05/20/2024 2:47 PM CDT 05/20/2024 3:12 PM CDT Dia Mantilla MD LAB MICROBIOLOGY - GENERAL ORDERABLES Final Result Performing Organization Address [facility] de Phone Number BIA [address] [address] [facility] [place] [address] * Drugs of Abuse Screen, Urine without [...] PM CDT 05/20/2024 3:12 PM CDT Narrative [facility] - 05/20/2024 7:58 PM CDT Drug of Abuse screening is performed by immunoassay for medical purposes only. ??This is not to be used for Pain Management purposes. us Dia Mantilla MD LAB URINE ORDERABLE S Final Result [facility] [address] Department [place] [address] * CBC with auto differential (05/20/2024 2:47 PM CDT) WBC 8.0 3.8 - 9.9 K/cumm Hgb 13.4 11.9 - 15.5 g/dL [facility] Hct 39.4 35.6 - 45.5 % [facility] Plt 324 150 - 400 K/cumm [facility] MPV 9.8 9.1 - 12.3 fL [facility] RBC 4.49 3.90 - 5.20 M/cumm [facility] MCV 87.8 81.3 - 96.4 fL [facility] MCH 29.8 27.1 - 33.3 pg [facility] MCHC 34.0 32.3 - 35.7 g/dL [facility] RDW CV 13.7 11.1 - 14.9 % [facility] RDW SD 43.9 35.7 - 48.1 fL [facility] NRBC abs 0.00 0.00 - 0.01 K/cumm BIA Blood 05/20/2024 2:47 PM CDT 05/20/2024 3:12 PM CDT Dia Mantilla MD LAB BLOOD ORDERABLE S Final Result Performing Organization Address [facility] de Phone Number [facility] [address] Department [place] [address] * Hemoglobin A1c (05/20/2024 2:47 PM CDT) Hgb A1C 4.6 4.0 - 5.6 % Estimated Average Glucose 85 mg/dL BIA Comment: The ADA recommends reporting an estimated Average Glucose (eAG) with all Hemoglobin A1c results using the equation derived from a study of 507 normal and diabetic adults. ??Minority populations were underrepresented and children were not included. ?? (Diabetes Care 31:1451-9160, 2008). ??The eAG is not equivalent to a fasting glucose. Blood 05/20/2024 2:47 PM CDT 05/20/2024 3:12 PM CDT Dia Mantilla MD LAB BLOOD ORDERABLE S Final Result Performing Organization Address [facility] de Phone Number [facility] [address] [place] [address] documented in this encounter Visit Diagnoses Diagnosis [...] 06/15/2024 added in this encounter Care Teams Radio Electronics Technician Relationship Specialty Start Date End Date No, Physician PCP - General 02/25/24 documented as of this encounter
--- OUTSIDE RECORDS SUMMARY | 2024-10-10 01:48 | XMS_ITS | Encounter Summary ---
Author Organization [facility] Healthcare Address [address] [place] [address] Care Team Providers Care Credit Union Field Examiner Name Role Phone No, Physician Primary Care Provider [phone] Encounter Details Date Type Department Care Team (Latest Contact Info) Description 05/20/2024 11:13 AM CDT - 05/20/2024 11:59 PM CDT Hospital Encounter [address] [id number] Encounter for supervision of normal first in [...] staff should administer the PHQ-9) 0 05/18/2024 [place] Depression Scale Answer Date Recorded [place] Depression Scale Total 10 05/20/2024 The thought of harming myself has occurred to me . 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 62.8 % CERNER Comment: Interpretive [...] LAB BLOOD ORDERABLE S Final Result [address] [place] [address] * Hemoglobin A1c (05/20/2024 2:47 PM CDT) Hgb A1C 4.6 4.0 - 5.6 % Estimated Average Glucose 85 mg/dL BIA Comment: The ADA recommends reporting an estimated Average Glucose (eAG) with all Hemoglobin A1c results using the equation derived from a study of 507 normal and diabetic adults. ??Minority populations were underrepresented and children were not included. ?? (Diabetes Care 31:7622-9305, 2008). ??The eAG is not equivalent to a fasting glucose. Blood 05/20/2024 2:47 PM CDT 05/20/2024 3:12 PM CDT Dia Mantilla MD LAB BLOOD ORDERABLE S Final Result Performing Organization Address City/[facility]/ZIP Co de Phone Number BIA SWEET [address] [place] [address] * CBC with auto differential (05/20/2024 2:47 PM CDT) WBC 8.0 3.8 - 9.9 K/cumm Hgb 13.4 11.9 - 15.5 g/dL [facility] Hct 39.4 35.6 - 45.5 % [facility] Plt 324 150 - 400 K/cumm [facility] MPV 9.8 9.1 - 12.3 fL [facility] RBC 4.49 3.90 - 5.20 M/cumm [facility] MCV 87.8 81.3 - 96.4 fL [facility] MCH 29.8 27.1 - 33.3 pg [facility] MCHC 34.0 32.3 - 35.7 g/dL [facility] RDW CV 13.7 11.1 - 14.9 % [facility] RDW SD 43.9 35.7 - 48.1 fL [facility] NRBC abs 0.00 0.00 - 0.01 K/cumm [facility] Blood 05/20/2024 2:47 PM CDT 05/20/2024 3:12 PM CDT Dia Mantilla MD LAB BLOOD ORDERABLE S Final Result Performing Organization Address City/[facility]/ZIP Co de Phone Number BIA SWEET [address] [employer] [place], [place] [phone] * Drugs of Abuse Screen, Urine without [...] 2023. Cocaine, ur Not Detected CutOff 150ng/mL [facility] Comment: Interpretive Data - Cocaine: ??Samples containing [...] 2024. Methadone, ur Not Detected CutOff 300ng/mL [facility] Comment: Interpretive Data - Methadone: ??Samples containing [...] PM CDT 05/20/2024 3:12 PM CDT Narrative [facility] - 05/20/2024 7:58 PM CDT Drug of Abuse screening is performed by immunoassay for medical purposes only. ??This is not to be used for Pain Management purposes. us Dia Mantilla MD LAB URINE ORDERABLE S Final Result [facility] [address] [place] [address] * Hepatitis B Surface Antigen Blood (05/20/2024 2:47 PM CDT) HepBsAg Nonreactive Nonreactive Blood 05/20/2024 2:47 PM CDT 05/20/2024 3:12 PM CDT Dia Mantilla MD LAB MICROBIOLOGY - GENERAL ORDERABLES Final Result Performing Organization Address [facility] de Phone Number BIA [address] Department [place] [place] [address] * Hepatitis C antibody Blood (05/20/2024 2:47 PM CDT) Pathologist [facility] Hep C Ab Nonreactive Nonreactive Comment: [...] GENERAL ORDERABLES Final Result Performing Organization Address [facility] Co de Phone Number BIA [address] [facility] [place] [address] * HIV 1/2 Antibody plus p24 Antigen Blood (05/20/2024 2:47 PM CDT) Pathologist [facility] HIV 1/2 ab + p24 ag Nonreactive Nonreactive Comment: Nonreactive for HIV-1 antigen and HIV-1/HIV-2 antibodies. No laboratory evidence of HIV infection. If acute HIV infection is suspected, consider testing for HIV-1 RNA. Blood 05/20/2024 2:47 PM CDT 05/20/2024 3:12 PM CDT Dia Mantilla MD LAB MICROBIOLOGY - GENERAL ORDERABLES Final Result Performing Organization Address City/[facility] Co de Phone Number BIA SWEET [address] [facility] [place] [address] * RPR Blood (05/20/2024 2:47 PM CDT) Pathologist [facility] RPR Nonreactive Nonreactive Blood 05/20/2024 2:47 PM CDT 05/20/2024 3:12 PM CDT Dia Mantilla MD LAB MICROBIOLOGY - GENERAL ORDERABLES Final Result Performing Organization Address [facility] de Phone Number BIA SWEET [address] [facility] [place] [address] * Rubella IgG antibody Blood (05/20/2024 2:47 PM CDT) Pathologist [facility] Rubella IgG Reactive Comment: Reactive: Results suggest response to immunization or prior exposure to the virus. Testing performed by: [facility], [address] [place] [address]., [id number] Blood 05/20/2024 2:47 PM CDT 05/21/2024 5:11 PM CDT Dia Mantilla MD LAB MICROBIOLOGY - GENERAL ORDERABLES Final Result Performing Organization Address [facility] de Phone Number BIA SWEET [address] [facility] [place] [address] * (ABNORMAL) Varicella Zoster IgG antibody Blood (05/20/2024 2:47 PM CDT) Pathologist [facility] VZV IgG Equivocal( A) Reactive Comment: Equivocal: Presence or absence of detectable antibodies to Varicella-zoster virus cannot be determined. ??Submit new specimen if clinically indicated. Testing performed by: [facility], [address] [place] [address]., [id number] Blood 05/20/2024 2:47 PM CDT 05/21/2024 5:11 PM CDT Dia Mantilla MD LAB MICROBIOLOGY - GENERAL ORDERABLES Final Result BIA SWEET [address] [place] [address] * (ABNORMAL) Vitamin D 25 hydroxy (05/20/2024 2:47 PM CDT) Vitamin D 25-OH 20(L) 30 - 80 ng/mL Blood 05/20/2024 2:47 PM CDT 05/20/2024 3:12 PM CDT Dia Mantilla MD LAB BLOOD ORDERABLE S Final Result Performing Organization Address [facility] Co de Phone Number BIA SWEET [address] [place] [address] * Urine culture Urine, clean voided (05/20/2024 2:47 PM CDT) Report Final Report: Less than 100,000 colonies/mL (clinically insignificant growth based on current clinical standards) Comment:Testing performed by : [facility], [address] [place]., [address] Organism (CLINICALLY INSIGNIFICANT GROWTH BIA Urine, clean voided 05/20/2024 2:47 PM CDT 05/20/2024 7:35 PM CDT Narrative BIA SWEET - 05/22/2024 9:59 AM CDT Testing performed by [facility] Microbiology Laboratory ([phone]) Dia Mantilla MD LAB MICROBIOLOGY - GENERAL ORDERABLES Final Result BIA SWEET [address] [place] [address] documented in this encounter Visit Diagnoses Diagnosis Encounter for supervision of normal first in first trimester 11 weeks gestation of documented in this encounter Care Teams Credit Union Field Examiner Relationship Specialty Start Date End Date No, Physician PCP - General 02/25/24 documented as of this encounter
--- OUTSIDE RECORDS SUMMARY | 2024-10-10 01:48 | XMS_ITS | Encounter Summary ---
Author Organization [facility] Healthcare Address [address] [place] [address] Care Team Providers Care Corrections Counselor Name Role Phone No, Physician Primary Care Provider [phone] Reason for Referral * Diagnostic Imaging (Routine) - Pending Review Specialty Diagnoses / Procedures Referred By Contac t Referred To Contact Diagnoses Monochorionic diamniotic twin , antepartum High risk , antepartum Procedures US OB 14 weeks or over with US Transvaginal (C) Byron Tellez MD [address] [address] Phone: tel: fax: [place] [phone] [place] [address] Referral ID Status Reason Start Date Expiration Date V isits Requested Visits Authorized [id number] Pending Review 04/25/2024 05/25/2025 1 1 Reason for Visit * Diagnostic Imaging (Routine) - Pending Review Specialty Diagnoses / Procedures Referred By Contac t Referred To Contact Diagnoses Monochorionic diamniotic twin , antepartum High risk , antepartum Procedures US OB 14 weeks or over with US Transvaginal (C) Byron Tellez MD [address] [address] Phone: tel: fax: [place] [address] [place] [address] Referral ID Status Reason Start Date Expiration Date V isits Requested Visits Authorized [id number] Pending Review 04/25/2024 05/25/2025 1 1 Encounter Details Date Type Department Care Team (Latest Contact Info) Description 05/18/2024 11:07 AM CDT - 05/18/2024 11:59 PM CDT Hospital Encounter [facility] Maternal Medicine Ultrasound-[facility] [address] [place] [address] Monochorionic diamniotic twin , antepartum; High risk [...] file 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
--- OUTSIDE RECORDS SUMMARY | 2024-10-10 01:48 | XMS_ITS | Encounter Summary ---
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
--- OUTSIDE RECORDS SUMMARY | 2024-10-10 01:48 | XMS_ITS | Encounter Summary ---
Author Organization [facility] Healthcare Address [address] [place] [address] Care Team Providers Care Hand Cell Tuber Name Role Phone No, Physician Primary Care Provider Reason for Visit * Reason Onset Date Comments Ultrasound 05/10/2024 Encounter Details Date Type Department Care Team (Late st Contact Info) Description 05/10/2024 Telephone [facility] [address] 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 She has an appointment soon with Dr. Tellez. documented in this encounter Plan of Treatment Not on file documented as of this encounter Visit Diagnoses Not on filedocumented in this encounter Care Teams Hand Cell Tuber Relationship Specialty Start Date End Date No, Physician PCP - General 02/25/24 documented as of this encounter
--- OUTSIDE RECORDS SUMMARY | 2024-10-10 01:48 | XMS_ITS | Encounter Summary ---
Author Organization [facility] Healthcare Address [address] [place] [address] Care Team Providers Care Mail Room Clerk Name Role Phone No, Physician Primary Care Provider [phone] Reason for Visit * Reason Comments Ultrasound Encounter Details Date Type Department Care Team (Latest Contact Info) Description 04/25/2024 8:00 AM CDT Ancillary [facility] [address] [place] [address] [address] [place] [address] Twin preg, unable to dtrm [...] on file Legal Sex Female 2:19 AM RN INTERN Gender Identity Not on file Sexual [...] tri documented in this encounter Care Teams Mail Room Clerk Relationship Specialty Start Date End Date No, Physician PCP - General 02/25/24 documented as of this encounter
--- OUTSIDE RECORDS SUMMARY | 2024-10-10 01:48 | XMS_ITS | Encounter Summary ---
Author Organization [facility] Healthcare Address [address] [place] [address] Care Team Providers Care Harvest Crew Supervisor Name Role Phone No, Physician Primary Care Provider [phone] Reason for Referral * Diagnostic Imaging (Routine) - Pending Review Specialty Diagnoses / Procedures Referred By Contac t Referred To Contact Diagnoses Monochorionic diamniotic twin , antepartum High risk , antepartum Procedures US OB 14 weeks or over with US Transvaginal (C) Byron Tellez MD [address] [address] Phone: tel: fax: [facility] [address] [place] [address] Referral ID Status Reason Start Date Expiration Date V isits Requested Visits Authorized [id number] Pending Review 04/25/2024 05/25/2025 1 1 Encounter Details Date Type Department Care Team (Late st Contact Info) Description 04/25/2024 Orders Only [facility] [address] [place] [address] Radha Hicks RN Monochorionic diamniotic [...] on file 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
--- OUTSIDE RECORDS SUMMARY | 2024-10-10 01:48 | XMS_ITS | Encounter Summary ---
Author Organization [facility] Healthcare Address [address] [place] [address] Care Team Providers Care Long Term Acute Care Registered Nurse Name Role Phone No, Physician Primary Care Provider [phone] Encounter Details Date Type Department Care Team (Late st Contact Info) Description 05/23/2024 Telephone [facility] Care at [address] [address] Dia Mantilla MD [address] [place] [address] Social History Tobacco Use Types Packs/Day Years [...] staff should administer the PHQ-9) 0 05/18/2024 [place] Depression Scale Answer Date Recorded [place] Depression Scale Total 10 05/20/2024 The thought of harming myself has occurred to me . 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 Mantilla. Can you reorder [...] Primary documented in this encounter Care Teams Long Term Acute Care Registered Nurse Relationship Specialty Start Date End Date No, Physician PCP - General 02/25/24 documented as of this encounter
--- OUTSIDE RECORDS SUMMARY | 2024-10-10 01:48 | XMS_ITS | Encounter Summary ---
Author Organization [facility] Healthcare Address [address] [place] [address] Care Team Providers Care Nanny/Household Manager Name Role Phone No, Physician Primary Care Provider [phone] Reason for Visit * Reason Comments Ultrasound * Diagnostic Imaging (Routine) - Pending Review Specialty Diagnoses / Procedures Referred By Contac t Referred To Contact Diagnoses Ultrasound scan done for inability to hear heart tones Procedures US Ob Limited Heaven Hooks, EMPLOYMENT LAW SPECIALIST [address] [facility] [address] [address] Phone: tel: fax: Referral ID Status Reason Start Date Expiration Date V isits Requested Visits Authorized [id number] Pending Review 05/20/2024 06/19/2025 1 1 Encounter Details Date Type Department Care Team (Latest Contact Info) Description 05/20/2024 1:30 PM CDT Ancillary Procedure [facility] 4 [facility] [address] [place] [address] Ultrasound scan done for inability to hear [...] staff should administer the PHQ-9) 0 05/18/2024 [place] Depression Scale Answer Date Recorded [place] Depression Scale Total 10 05/20/2024 The thought of harming myself has occurred to me . 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 us Heaven Hooks EMPLOYMENT LAW SPECIALIST IMG OB US PROCEDURES Final Result documented in this encounter Visit Diagnoses Diagnosis Ultrasound scan done for inability to hear heart tones Abnormality in heart rate/rhythm, antepartum condition or complication documented in this encounter Care Teams Nanny/Household Manager Relationship Specialty Start Date End Date No, Physician PCP - General 02/25/24 documented as of this encounter
--- OUTSIDE RECORDS SUMMARY | 2024-10-10 01:48 | XMS_ITS | Encounter Summary ---
Author Organization [facility] Healthcare Address [address] [place] [address] Care Team Providers Care Digital Archivist Name Role Phone No, Physician Primary Care Provider [phone] Encounter Details Date Type Department Care Team (Late st Contact Info) Description 05/20/2024 11:15 AM CDT Lab [facility] Medical Group Outpatient Lab at [address] [address] IBS (irritable bowel syndrome) (Primary [...] staff should administer the PHQ-9) 0 05/18/2024 [place] Depression Scale Answer Date Recorded [place] Depression Scale Total 10 05/20/2024 The thought of harming myself has occurred to me . 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
--- OUTSIDE RECORDS SUMMARY | 2024-10-10 01:48 | XMS_ITS | Encounter Summary ---
Author Organization 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
--- OUTSIDE RECORDS SUMMARY | 2024-10-10 01:48 | XMS_ITS | Encounter Summary ---
Author Organization [facility] Healthcare Address [address] [place] [address] Care Team Providers Care Button Sewing Machine Operator Name Role Phone No, Physician Primary Care Provider [phone] Reason for Referral * Diagnostic Imaging (Routine) - Pending Review Specialty Diagnoses / Procedures Referred By Contac t Referred To Contact Diagnoses Ultrasound scan done for inability to hear heart tones Procedures US Ob Limited Heaven Hooks NP [address] [place] [address] DR [address] [place] [address] Phone: tel: fax: Referral ID Status Reason Start Date Expiration Date V isits Requested Visits Authorized [id number] Pending Review 05/20/2024 06/19/2025 1 1 * Diagnostic Imaging (Routine) - Pending Review Specialty Diagnoses / Procedures Referred By Contac t Referred To Contact Diagnoses Ultrasound scan done for inability to hear heart tones Procedures US Ob Limited Heaven Hooks NP [address] [facility] [address] [place] [address] Phone: tel: fax: Referral ID Status Reason Start Date Expiration Date V isits Requested Visits Authorized [id number] Pending Review 05/20/2024 06/19/2025 1 1 Reason for Visit * Reason Comments Routine Visit Encounter Details Date Type Department Care Team ([facility] Contact Info) Description 05/20/2024 10:45 AM CDT Routine [facility] Medical Group Women's Health Care at [address] [address] Heaven Hooks, MOTEL FRONT DESK CLERK 4 [facility] [address] [place] [address] Twin , unable to determine number of [...] staff should administer the PHQ-9) 0 05/18/2024 [place] Depression Scale Answer Date Recorded [place] Depression Scale Total 10 05/20/2024 The thought of harming myself has occurred to me . 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 To [place] this afternoon for heart tones. RTO 4 [...] fluid is within normallimits. Heaven Hooks NP [facility] OB US PROCEDURES Final Result * US [...] amount of amniotic fluid. Heaven Hooks NP [facility] OB US PROCEDURES Final Result documented in [...] complication documented in this encounter Care Teams Button Sewing Machine Operator Relationship Specialty Start Date End Date No, Physician PCP - General 02/25/24 documented as of this encounter
== END 2024-10-03 00:16 | disposition home or self-care (01) ==
LOC: CHSED 10-03 00:15
PROVIDERS: Emergency Provider Emergency Medicine; PCP Internal Medicine
DX: F41.9 Anxiety disorder, unspecified (principal)
CPT/HCPCS: 99281

== ENCOUNTER 2024-10-28 09:21 | Emergency (ER) | payer OTHER, MEDICAID, SELFPAY ==
[2024-10-28 09:21] VITALS: BP 155/105; PULSE 72; RESP 16; TEMP 36.2; O2SAT 100
--- NOTE | 2024-10-28 09:31 | ED_ITS ---
HPI - Female Genitourinary General Chief complaint: Urogenital-Female Stated complaint: UTI symptoms Time Seen by Provider: 10/28/24 09:30 Source: patient Mode of arrival: ambulatory Limitations: no limitations History of Present Illness HPI Narrative: Patient is a 29-year-old female with some dysuria and decreased urination. No blood in the urine. She had a vaginal 5 weeks ago. She also has preeclampsia history and is on blood pressure medicine that she started during the and took her dose today right before coming to the ER. Slight suprapubic type pains and discomfort. MD elicited complaint: dysuria Pertinent past history: other ( Hypertension related to ) Onset (ago): day(s) (1) Location of symptoms: none Severity: mild Female Urogenital Radiation: Non-Radiating Severity scale (1-10): 1 Quality of pain: cramping Consistency: intermittent Vaginal discharge: none Vaginal bleeding: none Urinary symptoms: Dysuria Exacerbating factors: none Relieving factors: none Associated symptoms: nausea Treatment prior to arrival: none Sexual activity: Yes Patient : No Related Data Home Medications ?Medication ?Instructions ?Recorded ?Confirmed ?Last Taken ?Type cyclobenzaprine 5 mg tablet 5 mg PO PRN cramps 09/29/24 Unknown History escitalopram oxalate 20 mg tablet 20 mg PO .QD 09/29/24 09/29/24 Unknown History famotidine 40 mg tablet 40 mg PO QHS 09/29/24 09/29/24 Unknown History ibuprofen 600 mg tablet 600 mg PO Q6-8H PRN pain 09/29/24 09/29/24 Unknown Histo ry labetalol 300 mg tablet 300 mg PO .Q8 09/29/24 09/29/24 09/28/24 History nifedipine 60 mg tablet,extended 60 mg PO .Q24 09/29/24 09/29/24 09/28/24 History release oxycodone 5 mg tablet 5 mg PO QID PRN pain 09/29/24 09/29/24 09/28/24 History polyethylene glycol 3350 17 17 g PO .QD 09/29/24 09/29/24 09/28/24 History gram/dose oral powder (ClearLax) Allergies Allergy/AdvReac Type Severity Reaction Status Date / Time No Known Allergies Allergy Verified 10/28/24 09:26 Review of Systems Review of Systems: All systems reviewed & are unremarkable except as noted in HPI and below Constitutional: Constitutional: Reports no additional constitutional complaints Eyes: Eyes: Reports no additional eye complaints ENT: Reports system reviewed and no additional complaints, except as documented Cardiovascular: Cardiovascular: Reports no additional cardiovascular complaints Respiratory: Respiratory: Reports no additional respiratory complaints Gastrointestinal: Gastrointestinal: Reports no additional gastrointestinal complaints Genitourinary: Genitourinary: Reports no additional female genitourinary complaints Musculoskeletal: Musculoskeletal: Reports no additional musculoskeletal complaints Integumentary/Breasts: Skin/Breast: Reports system reviewed and no additional complaints, except as docu Neurologic: Reports system reviewed and no additional complaints, except as documented Psychiatric: Psychiatric: Reports no additional psychiatric complaints Endocrine: Endocrine: Reports no additional endocrine complaints Hematologic/Lymphatic: Hematologic/Lymphatic: Reports no additional hematologic/lymphatic complaints Allergic/Immunologic: Allergic/Immunologic: Reports no additional allergic/immunologic complaints [facility] Past Medical History Medical History (Updated 10/28/24 @ 09:51 by Javier Huston MD) Acid reflux Anxiety Irritable bowel Surgical History Surgical History History of cholecystectomy Family History Family History Mother Family history of mental disorder Sibling Family history of mental disorder Father Hypertension Grandparent Diabetes mellitus Social History Social History Smoking status: Never smoker Alcohol intake: current Gender identity (if verbalized by the patient): Female Exam Const: General: healthy appearing Nutritional Appearance: well nourished Orientation/consciousness: patient oriented x3 Limitations: no limitations HENMT: Head: normal to inspection Ears: external ears normal Face/Nose/Sinus: Normal external nose present Eyes: Conjunctivae: conjunctivae normal Pupils: Equal, round and reactive pupils present EOM: EOMs intact bilaterally Neck: Neck: normal visual inspection Chest: Chest palpation & inspection: normal inspection of the chest Resp: Effort & Inspection: normal respiratory effort and not labored Auscultation: clear to auscultation bilaterally and no crackles Cardio: Rate: regular rate Rhythm: regular rhythm Heart sounds: no murmurs GI: Inspection: non-distended GI Palp: Yes Soft to palpation, Yes Tenderness to palpation present (GI) ( suprapubic), No Guarding due to palpation present (GI), No Rigid due to palpation, No Hernia present, No Palpable mass present and No Rebound tenderness present Auscultation: normal bowel sounds : General: No bladder normal to palpation ( suprapubic tenderness) Back/Spine/Pelvis: Back: no CVA tenderness Skin: General skin exam: normal color Rashes: no rashes Wounds: no wounds Neuro: General: patient oriented x3 Cranial nerves: Yes Nystagmus not present Speech: normal speech Extrem: General: normal to inspection Psych: Appearance: grossly normal Mental Status: mental status grossly normal Affect: normal affect Course Vital Signs Vital signs: Vital Signs Temperature 36.2 C L 10/28/24 09:21 Pulse Rate 72 10/28/24 09:21 Respiratory Rate 16 10/28/24 09:21 Blood Pressure 155/105 H 10/28/24 09:21 Pulse Oximetry 100 10/28/24 09:21 Oxygen Delivery Room Air 10/28/24 09:21 Temperature 36.2 C L 10/28/24 09:21 Pulse Rate 72 10/28/24 09:21 Respiratory Rate 16 10/28/24 09:21 Blood Pressure 156/101 H 10/28/24 09:42 Pulse Oximetry 100 10/28/24 09:21 Oxygen Delivery Room Air 10/28/24 09:21 MDM - Female Genitourinary MDM Narrative Medical decision making narrative: patient is a 29-year-old female with urinary symptoms. We will go ahead and check a UA at this time. We will monitor blood pressure in the ER. UA was nonspecific and showing blood from recent vaginal delivery. We will go ahead and give a script for antibiotics that starts after 24 hours to see how symptoms proceed. Lab Data Attestation: I reviewed the patient's lab results. Labs: Lab Results 10/28/24 Range/Units 09:31 Urine Color [place] A (Yellow) Urine Appearance Sl cloudy A (Clear) Urine pH 6.0 (5.0-8.0) Ur Specific [place] >= 1.030 H (1.010-1.020) Urine Protein 2+ H (Negative) Urine Glucose (UA) Negative (Negative) Urine Ketones Negative (Negative) Ur Blood (Man) 3+ H (Negative) Urine Nitrate Negative (Negative) Urine Bilirubin 2+ H (Negative) Urine Urobilinogen 0.2 (0.2-1.0) mg/dL Leukocyte Esterase Rfl Negative (Negative) TIMA/UL Urine RBC 51-75 H (0-2) /hpf Urine WBC None seen (0-3) /hpf Ur Squamous Epith Cells Few (Few) /hpf Urine Bacteria Trace (None) /hpf Discharge Plan Discharge Clinical Impression: Dysuria Patient Disposition: Home, Self-Care Condition: Stable Instructions: Antibiotic Form, Urinary Tract Infection in Women (ED) Additional Instructions: Please follow-up with the primary doctor in the next week. Please start antibiotics in 24 hours if continued symptoms. Patient Language: [place] Prescriptions: New cephalexin 500 mg capsule 500 mg PO Q12H 7 Days Qty: 14 0RF No Action famotidine 40 mg tablet 40 mg PO QHS escitalopram oxalate 20 mg tablet 20 mg PO .QD cyclobenzaprine 5 mg tablet 5 mg PO PRN (Reason: cramps) ibuprofen 600 mg tablet 600 mg PO Q6-8H PRN (Reason: pain) labetalol 300 mg tablet 300 mg PO .Q8 polyethylene glycol 3350 [ClearLax] 17 gram/dose powder 17 g PO .QD nifedipine 60 mg tablet extended release 60 mg PO .Q24 oxycodone 5 mg tablet 5 mg PO QID PRN (Reason: pain) ciprofloxacin HCl [Cipro] 250 mg tablet 250 mg PO Q12H 5 Days Qty: 10 0RF Follow-up/Referrals: Bertrand Stephen MD [Primary Care Provider] - Time of Disposition: 09:53
[2024-10-28 09:38] LABS: Bilirubin Urine 2+ (Negative); Blood Urine 3+ (Negative); Glucose Urine UA Negative (Negative); Ketones Urine Negative (Negative); Leukocyte Esterase Ur Negative LEU/UL (Negative); Nitrate Urine Negative (Negative); Protein Urine 2+ (Negative); Specific Grav Ur >= 1.030 (1.010-1.020); Urobilinogen Urine 0.2 mg/dL (0.2-1.0)
[2024-10-28 09:42] VITALS: BP 156/101
[2024-10-28 09:44] LABS: Add Urine Microscopic? YES; Appearance Urine Sl Cloudy (Clear); Color Urine Amber (Yellow); RBC Urine 51-75 /hpf (0-2)
[2024-10-28 09:45] LABS: Bacteria Urine Trace /hpf; Squamous Epithelial Cell Urine Few /hpf (Few); WBC Urine None seen /hpf (0-3)
[2024-10-28 10:03] VITALS: BP 150/94; PULSE 78; RESP 16; TEMP 36.6; O2SAT 100
== END 2024-10-28 10:03 | disposition home or self-care (01) ==
LOC: CHSED 10:00
PROVIDERS: Emergency Provider Emergency Medicine; PCP Internal Medicine
DX: R30.0 Dysuria (principal)
CPT/HCPCS: 81001; 99283

== ENCOUNTER 2024-11-09 09:44 | Outpatient (CLI) | payer OTHER, MEDICAID, SELFPAY ==
--- NOTE | 2024-11-09 09:49 | ECG_ITS ---
Test Date: 2024-11-09 09:59:02 Measurements Intervals [place] Rate: 54 P: 59 ID: [id number] QRS: 38 QRSD: 90 T: 16 QT: 397 QTc: 380 Interpretive Statements SINUS BRADYCARDIA EARLY PRECORDIAL R/S TRANSITION VOLTAGE CRITERIA FOR LVH CONSIDER INFERIOR INFARCT, AGE INDETERMINATE ABNORMAL ECG No previous ECG available for comparison Electronically Signed On 11-09-2024 13:38:05 [employer] by Chucho Holbrook D.O.
--- OUTSIDE RECORDS SUMMARY | 2024-11-09 10:31 | XMS_ITS | Referral Summary ---
Author Organization [facility] Address [address] [place] [phone] Care Team Providers Care Vacation Planner Name Role Phone No, Physician Primary Care Provider [phone] Encounters Date Type Department Care Team Description 11/04/2024 Telephone Psychiatry James Rojas MD Reminder of Appointment 11/03/2024 4:37 PM COMPOUNDING SCALER - 11/03/2024 11:59 PM COMPOUNDING SCALER Hospital Encounter [address] [address] Encounter for routine follow-up Discharge Disposition: Discharge to home or self care 11/03/2024 1:40 PM COMPOUNDING SCALER Office Visit [facility] Maternal- Medicine [address] [place] [address] Floor [address] [place] [phone] Encounter for routine follow-up (Primary Dx) 10/28/2024 [place] [address] Nancy Noel, [facility] Brief Therapeutic Intervention 10/20/2024 Orders Only [facility] Maternal- Medicine [address] [place] [address] 7th Floor [address] [place] [phone] Gracy Hicks RN Postpartum care following delivery (Primary Dx); Preeclampsia, unspecified trimester 10/20/2024 1:00 PM COMPOUNDING SCALER Office Visit [facility] Maternal- Medicine [address] [place] [address] 7th Floor [address] [place] [phone] care following delivery (Primary Dx) 10/18/2024 1:00 PM COMPOUNDING SCALER Telemedicine [facility] [place] [address] Nancy Noel, LEO Generalized anxiety disorder (Primary Dx) 10/16/2024 9:30 AM COMPOUNDING SCALER - 10/16/2024 2:10 PM COMPOUNDING SCALER Emergency [facility] Emergency Department [address] [place] [address] Satnam Nair MD Secondary hypertension (Primary Dx) Discharge Disposition: Discharge to home or self care 10/07/2024 Telephone [facility] [place] [address] Nancy Noel, LEO [facility] Initial Contact 09/30/[address] [address] 09/25/[address] [address] 07/29/2024 2:42 AM CDT - 09/22/2024 11:26 AM COMPOUNDING SCALER Hospital Encounter [address] [address] Anastasia Amaro MD Bligard, MD Sumanth Fitzgerald Julia Ellen, MD Goodman, Sara Olsen MD Preeclampsia, unspecified trimester (Primary Dx); Twin , unable to determine number of placenta and number of amniotic sacs, antepartum, unspecified trimester [O30.099]; 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 Discharge Disposition: Discharge to home or self care 09/19/2024 1:57 PM COMPOUNDING SCALER Anesthesia Event [address] [address] Sidra Ann MD Bailey, Cody Allen, MD 09/19/2024 1:30 PM COMPOUNDING SCALER - 09/19/2024 4:05 PM COMPOUNDING SCALER Surgery [address] [address] Josefina Peter MD SECTION 09/15/2024 9:00 AM COMPOUNDING SCALER Ancillary Procedure [facility] [address] [address] 09/08/2024 10:00 AM COMPOUNDING SCALER Ancillary Procedure [address] [address] 08/24/2024 12:30 PM COMPOUNDING SCALER Ancillary Procedure [address] [address] 08/16/2024 8:15 AM COMPOUNDING SCALER Ancillary Procedure [address] [address] 08/09/2024 9:30 AM COMPOUNDING SCALER Ancillary Procedure [address] [address] from Last 3 Months Allergies No known active allergies Medications acetaminophen 500 mg capsuleIndicat ions:Pain Take 2 [...] 30 tablet 2 09/22/20 24 025 Active Additional Information Patient not taking.Reported on 11/03/2024 polyethylene glycol (MIRALAX) 17 gram/dose bulk powder Take 17 g by mouth daily as needed (constipation) 289 g 09/22/20 24 Active NIFEdipine (PROCARDIA XL/ADALAT CC) 60 mg 24 hr tablet Take 2 tablets (120 mg total) by mouth daily 60 tablet 2 09/23/20 24 025 Active labetaloL (NORMODYNE,TRA NDATE) 200 mg tablet Take 2 tablets (400 mg total) by mouth 3 (three) times a day 180 tablet 3 10/20/19 25 025 Active blood pressure test kit-large kitIndications : care following delivery,Preec lampsia, unspecified trimester 1 kit daily Please use to check your BP daily and record 1 kit 10/20/19 Active Additional Information Patient not taking.Reported on 11/03/2024 hydrOXYzine (ATARAX) 10 mg tablet 10/25/19 Active meloxicam (MOBIC) 15 mg tablet Take 1 tablet (15 mg total) by mouth daily 10/27/19 Active nortriptyline (PAMELOR) 10 mg capsule Take 1 capsule (10 mg total) by mouth nightly as needed 10/20/19 Active sertraline (ZOLOFT) 50 mg tablet 10/25/19 Active no115/iron/fol ic acid ( ORAL) Take by mouth 025 Discontinued(T herapy completed) ibuprofen (ADVIL,MOTRIN) 600 mg tabletIndicati ons:Cramps Take 1 tablet (600 mg total) by mouth every 6 (six) hours as needed for pain 90 tablet 09/22/20 24 025 Discontinued(T herapy completed) lidocaine (LIDODERM) 5 % Place 2 patches on the skin daily Remove & discard patch within 12 hours or as directed by MD. 10 patch 09/22/20 24 025 Discontinued(T herapy completed) oxyCODONE (ROXICODONE) 5 mg immediate release tabletIndicati ons:Pain Take 1 tablet (5 mg total) by mouth every 4 (four) hours as needed for pain 15 tablet 09/22/20 24 025 Discontinued(T herapy completed) labetaloL (NORMODYNE,TRA NDATE) 300 mg tablet Take 1 tablet (300 mg total) by mouth 3 (three) times a day 90 tablet 2 09/22/20 24 025 Discontinued labetaloL (NORMODYNE,TRA NDATE) 300 mg tablet Take 1 tablet (300 mg total) by mouth 4 (four) times a day 120 tablet 10/16/19 25 025 Discontinued(R eorder) cephalexin (KEFLEX) 500 mg capsule Take 1 capsule (500 mg total) by mouth 4 (four) times a day for 7 days 28 capsule 10/16/19 25 025 Active Problems Problem Noted Date Diagnosed Date [...] Blood pressures well controlled on N120XL and [id number]. CBC/CMP WNL, UPC 0.1. Enrolled in remote [...] # Disposition: Follow up task sent to [facility] scheduling pool for appointments in 2 and 6 weeks. They are enrolled in remote blood pressure monitoring for their BP check. Desires discharge home today. Service Coverage These phones are service phones and carried 27/04 in house: R1 (first call) [phone] R1 alt (second call) [phone] R4 (Chief) [phone] 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 08/29/2024 [...] Blood pressures well controlled on N120XL and [id number]. Magnesium for seizure prophylaxis. #sinus tachycardia, intermittent: [...] found out that that would be in [place] he used an expletive to express that [...] Tobacco: Never Tobacco Cessation:Counseling Given: Not Answered [facility] [employer] Answer Date Recorded In the past 12 months has e [employer] gas, oil, or water [employer] threatened to shut off services in your [...] often do you attend chur ch or congregational services? Never 07/29/2024 Do you belong to any clubs o r organizations such as hindu groups, unions, fraternal or athletic groups, or [...] staff should administer the PHQ-9) 0 07/28/2024 [facility] Occupat ional [facility] - Occupational Stress Questionnaire Answer [...] things needed for daily living? No 07/29/2024 [place] Depression Scale Answer Date Recorded [place] Depression Scale Total 21 10/20/2024 The thought of harming myself has occurred to me . Never 10/20/2024 Housing Stability Vital Sign Answer Devan e Recorded In the last 12 months, was t here a time when you were not able to pay the mortgage or rent on time? No 07/29/2024 In the past 12 months, how m any times have you moved where you were living? 1 07/29/2024 At any time in the past 12 m [place], were you homeless or living in a senior living (including now)? No 07/29/2024 Personal Safety Answer Date Recorded Have you ever been in or are you currently in a harmful physical or emotional relationship or is someone making you feel afraid or unsafe? Denies 10/16/2024 Comments No Sex and Gender Information Value Date Recorded Sex Assigned at Not on file Legal Sex Female 2:19 AM COMPOUNDING SCALER Gender Identity Not on file Sexual Orientation Not on file Last Filed Vital Signs Vital Sign Reading Time Taken Comments Blood Pressure 120/81 11/03/2024 1:53 PM COMPOUNDING SCALER Pulse 116 11/03/2024 1:53 PM COMPOUNDING SCALER Temperature 35.9 ??C (96.7 ??F) 10/16/2024 9:28 AM CS T Respiratory Rate 18 10/16/2024 11:0 0 AM COMPOUNDING SCALER Oxygen Saturation 97% 11/03/2024 1:53 PM COMPOUNDING SCALER Inhaled Oxygen Concentration - - Weight 111.5 kg (245 lb 12.8 oz) 11/03/2024 1:53 PM COMPOUNDING SCALER Height 167.6 cm (5' 6 ) 10/16/2024 9:28 AM COMPOUNDING SCALER Body Mass Index 39.67 10/16/2024 9:28 AM COMPOUNDING SCALER Plan of Treatment Not on file Procedures Procedure Name Priority Date/Time Associated Diagnosis Comments THINPREP PROCESSING (MOLECULAR COMPONENT) Routine 11/03/2024 4:37 PM COMPOUNDING SCALER Encounter for routine follow-up URINALYSIS, MICROSCOPIC ONLY STAT 10/16/2024 11:21 AM COMPOUNDING SCALER URINE CULTURE STAT 10/16/2024 11:21 AM COMPOUNDING SCALER URINALYSIS AND REFLEX TO MICROSCOPIC AND CULTURE STAT 10/16/2024 11:21 AM COMPOUNDING SCALER ECG 12-LEAD STAT 10/16/2024 10:36 AM COMPOUNDING SCALER EGFR Add On 10/16/2024 9:47 AM COMPOUNDING SCALER DIFFERENTIAL AUTO Add On 10/16/2024 9:4 7 AM COMPOUNDING SCALER COMPREHENSIVE METABOLIC PANEL Add-On 10/16/2024 9:47 AM COMPOUNDING SCALER CBC WITH AUTO DIFFERENTIAL Add-On 10/16/2024 9:47 AM COMPOUNDING SCALER BLEED SCREEN Timed 09/20/2024 4: 48 AM COMPOUNDING SCALER ABO/RH Timed 09/20/2024 4:48 AM COMPOUNDING SCALER CBC WITHOUT DIFFERENTIAL Routine 09/20/2024 4:48 AM COMPOUNDING SCALER RH IMMUNE GLOBULIN EVAL Timed 09/20/2024 4:48 AM COMPOUNDING SCALER SURGICAL PATHOLOGY Routine 09/19/2024 4: 06 PM COMPOUNDING SCALER ANESTHESIA EPIDURAL BLOCK Routine 09/19/2024 2:45 PM COMPOUNDING SCALER SECTION 09/19/2024 1:56 PM COMPOUNDING SCALER TIUP Case Notes PreE w/ SF and Multiple gestation EGFR Timed 09/18/2024 6:21 AM COMPOUNDING SCALER COMPREHENSIVE METABOLIC PANEL Timed 09/18/2024 6:21 AM COMPOUNDING SCALER CBC WITHOUT DIFFERENTIAL Timed 09/18/2024 6:21 AM COMPOUNDING SCALER TYPE AND SCREEN Timed 09/18/2024 6:21 AM COMPOUNDING SCALER NONSTRESS TEST Routine 09/17/2024 2:58 PM COMPOUNDING SCALER Preeclampsia, unspecified trimester 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 US OB FOLLOW UP IP Routine 09/15/2024 1:08 PM COMPOUNDING SCALER EGFR Timed 09/15/2024 6:17 AM COMPOUNDING SCALER COMPREHENSIVE METABOLIC PANEL Timed 09/15/2024 6:17 AM COMPOUNDING SCALER CBC WITHOUT DIFFERENTIAL Timed 09/15/2024 6:17 AM COMPOUNDING SCALER TYPE AND SCREEN Timed 09/15/2024 6:17 AM COMPOUNDING SCALER NONSTRESS TEST Routine 09/13/2024 5:10 PM COMPOUNDING SCALER Preeclampsia, unspecified trimester 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 EGFR Timed 09/12/2024 6:35 AM COMPOUNDING SCALER COMPREHENSIVE METABOLIC PANEL Timed 09/12/2024 6:35 AM COMPOUNDING SCALER CBC WITHOUT DIFFERENTIAL Timed 09/12/2024 6:35 AM COMPOUNDING SCALER TYPE AND SCREEN Timed 09/12/2024 6:35 AM COMPOUNDING SCALER EGFR Timed 09/09/2024 6:24 AM COMPOUNDING SCALER COMPREHENSIVE METABOLIC PANEL Timed 09/09/2024 6:24 AM COMPOUNDING SCALER CBC WITHOUT DIFFERENTIAL Timed 09/09/2024 6:24 AM COMPOUNDING SCALER TYPE AND SCREEN Timed 09/09/2024 6:24 AM COMPOUNDING SCALER US OB LIMITED IP Routine 09/08/2024 10:29 AM COMPOUNDING SCALER NONSTRESS TEST Routine 09/06/2024 8:38 PM COMPOUNDING SCALER Preeclampsia, unspecified trimester 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 EGFR Timed 09/06/2024 4:31 AM COMPOUNDING SCALER COMPREHENSIVE METABOLIC PANEL Timed 09/06/2024 4:31 AM COMPOUNDING SCALER CBC WITHOUT DIFFERENTIAL Timed 09/06/2024 4:31 AM COMPOUNDING SCALER TYPE AND SCREEN Timed 09/06/2024 4:31 AM COMPOUNDING SCALER GROUP B STREPTOCOCCUS CULTURE Routine 09/03/2024 10:29 AM COMPOUNDING SCALER EGFR Timed 09/03/2024 5:26 AM COMPOUNDING SCALER COMPREHENSIVE METABOLIC PANEL Timed 09/03/2024 5:26 AM COMPOUNDING SCALER CBC WITHOUT DIFFERENTIAL Timed 09/03/2024 5:26 AM COMPOUNDING SCALER TYPE AND SCREEN Timed 09/03/2024 5:26 AM COMPOUNDING SCALER ECG 12-LEAD Routine 09/02/2024 4:33 PM COMPOUNDING SCALER EGFR Timed 08/31/2024 6:20 AM COMPOUNDING SCALER COMPREHENSIVE METABOLIC PANEL Timed 08/31/2024 6:20 AM COMPOUNDING SCALER CBC WITHOUT DIFFERENTIAL Timed 08/31/2024 6:20 AM COMPOUNDING SCALER TYPE AND SCREEN Timed 08/31/2024 6:20 AM COMPOUNDING SCALER NONSTRESS TEST Routine 08/29/2024 2:32 PM COMPOUNDING SCALER Preeclampsia, unspecified trimester 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 NONSTRESS TEST Routine 08/28/2024 7:47 PM COMPOUNDING SCALER Preeclampsia, unspecified trimester 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 EGFR Timed 08/28/2024 6:00 AM COMPOUNDING SCALER COMPREHENSIVE METABOLIC PANEL Timed 08/28/2024 6:00 AM COMPOUNDING SCALER CBC WITHOUT DIFFERENTIAL Timed 08/28/2024 6:00 AM COMPOUNDING SCALER TYPE AND SCREEN Timed 08/28/2024 6:00 AM COMPOUNDING SCALER EGFR Timed 08/25/2024 6:19 AM COMPOUNDING SCALER COMPREHENSIVE METABOLIC PANEL Timed 08/25/2024 6:19 AM COMPOUNDING SCALER CBC WITHOUT DIFFERENTIAL Timed 08/25/2024 6:19 AM COMPOUNDING SCALER TYPE AND SCREEN Timed 08/25/2024 6:19 AM COMPOUNDING SCALER US OB FOLLOW UP IP Routine 08/24/2024 9:37 AM COMPOUNDING SCALER EGFR Timed 08/22/2024 6:02 AM COMPOUNDING SCALER COMPREHENSIVE METABOLIC PANEL Timed 08/22/2024 6:02 AM COMPOUNDING SCALER CBC WITHOUT DIFFERENTIAL Timed 08/22/2024 6:02 AM COMPOUNDING SCALER TYPE AND SCREEN Timed 08/22/2024 6:02 AM COMPOUNDING SCALER EGFR Timed 08/19/2024 6:25 AM COMPOUNDING SCALER COMPREHENSIVE METABOLIC PANEL Timed 08/19/2024 6:25 AM COMPOUNDING SCALER CBC WITHOUT DIFFERENTIAL Timed 08/19/2024 6:25 AM COMPOUNDING SCALER TYPE AND SCREEN Timed 08/19/2024 6:25 AM COMPOUNDING SCALER US OB LIMITED IP Routine 08/16/2024 8:35 AM COMPOUNDING SCALER ANTIBODY IDENTIFICATION Routine 08/16/2024 7:34 AM COMPOUNDING SCALER EGFR Timed 08/16/2024 6:15 AM COMPOUNDING SCALER THYROID FUNCTION CASCADE Routine 08/16/2024 6:15 AM COMPOUNDING SCALER COMPREHENSIVE METABOLIC PANEL Timed 08/16/2024 6:15 AM COMPOUNDING SCALER CBC WITHOUT DIFFERENTIAL Timed 08/16/2024 6:15 AM COMPOUNDING SCALER TYPE AND SCREEN Timed 08/16/2024 6:15 AM COMPOUNDING SCALER POCT GLUCOSE DEVICE Routine 08/14/2024 3 :06 PM COMPOUNDING SCALER ECG 12-LEAD Routine 08/13/2024 9:02 AM COMPOUNDING SCALER ANTIBODY IDENTIFICATION Routine 08/13/2024 7:42 AM COMPOUNDING SCALER EGFR Timed 08/13/2024 5:44 AM COMPOUNDING SCALER COMPREHENSIVE METABOLIC PANEL Timed 08/13/2024 5:44 AM COMPOUNDING SCALER CBC WITHOUT DIFFERENTIAL Timed 08/13/2024 5:44 AM COMPOUNDING SCALER TYPE AND SCREEN Timed 08/13/2024 5:44 AM COMPOUNDING SCALER RPR Routine 08/13/2024 5:44 AM COMPOUNDING SCALER HIV 1/2 ANTIBODY PLUS P24 ANTIGEN Routine 08/13/2024 5:44 AM COMPOUNDING SCALER GTT 50GM 1HR GESTATIONAL SCREEN Timed 08/12/2024 11:29 AM COMPOUNDING SCALER ANTIBODY IDENTIFICATION Routine 08/10/2024 7:02 AM COMPOUNDING SCALER EGFR Timed 08/10/2024 4:49 AM COMPOUNDING SCALER COMPREHENSIVE METABOLIC PANEL Timed 08/10/2024 4:49 AM COMPOUNDING SCALER CBC WITHOUT DIFFERENTIAL Timed 08/10/2024 4:49 AM COMPOUNDING SCALER TYPE AND SCREEN Timed 08/10/2024 4:49 AM COMPOUNDING SCALER US OB 14 WEEKS OR OVER IP Routine 08/09/2024 9:47 AM COMPOUNDING SCALER HEPATITIS C ANTIBODY Routine 05/20/2024 2:47 PM CDT Encounter for supervision of normal first in first trimester 11 weeks gestation of from Last 3 Months or Most Recently Relevant to Health Maintenance Results * ThinPrep processing (Molecular component) (11/03/2024 4:37 PM COMPOUNDING SCALER) ThinPrep processing (Molecular component) Specimen received for processing. [facility] Endocervical 11/03/2024 4:37 PM COMPOUNDING SCALER 11/07/2024 8:41 AM COMPOUNDING SCALER Jada Ngo NP LAB BODY FLUIDS AND STOOLS ORDERABLES Final Result [facility] Department [place] [address] [facility] * (ABNORMAL) Urinalysis reflex to microscopic and culture Urine (10/16/2024 11:21 AM COMPOUNDING SCALER) Color, ur Yellow Yellow Clarity, ur Clear Clear [facility] ([place]) Specific gravity, ur 1.020 1.003 - 1.030 [facility] ([place]) pH, [...] tendency for uric acid stone formation. Source: [id number] Current Interpretive Data was last revised on 2017 Protein, ur ql 1+(A) Negative [facility] ([place]) Glucose, ur ql Negative Negative [facility] ([place]) Ketones, ur 1+(A) Negative [facility] ([place]) Bilirubin, ur Negative Negative [facility] ([place]) Blood, ur 3+(A) Negative [facility] ([place]) Urobilinogen, ur <2.0 <2.0 mg/dL [facility] ([place]) Nitrite, ur Negative Negative [facility] ([place]) Leukocyte esterase, ur 3+(A) Negative [facility] ([place]) UA reflex comment Reflex to microscopic UA will be performed. [facility] ([place]) Urine 10/16/2024 11:2 1 AM COMPOUNDING SCALER 10/16/2024 11:23 AM COMPOUNDING SCALER Satnam Nair MD LAB MICROBIOLOGY - GENERAL O RDERABLES Final Result Performing Organization Address [facility] de Phone Number BIA [facility] ([place]) [address] [place] [address] of [employer] [place] [address] * (ABNORMAL) Urinalysis, microscopic only (10/16/2024 11:21 AM COMPOUNDING SCALER) WBC, ur 11-20(A) 0 - 5 /HPF RBC, ur >50(A) 0 - 2 /HPF [facility] ([place]) Epithelial cells, squamous, ur 1-5 0 - 5 /HPF [facility] ([place]) Bacteria, ur Trace(A) [facility] ([place]) Mucous, ur Present(A) [facility] ([place]) Culture Reflex Comment Reflex to urine culture will be performed. [facility] ([place]) Urine 10/16/2024 11:2 1 AM COMPOUNDING SCALER 10/16/2024 11:23 AM COMPOUNDING SCALER Satnam Nair MD LAB URINE ORDERABLES Final R esult Performing Organization Address City/[facility] Co de Phone Number BIA WADE ([place]) [address] [facility] [place] [address] * Urine culture Urine (10/16/2024 11:21 AM COMPOUNDING SCALER) Report Final Report: Less than 100,000 colonies/mL (clinically insignificant growth based on current clinical standards) Comment:Testing performed by : [facility], [address] [place]., [address] Organism (CLINICALLY INSIGNIFICANT GROWTH XUKIP WADE ([place]) Urine 10/16/2024 11:2 1 AM COMPOUNDING SCALER 10/16/2024 2:00 PM COMPOUNDING SCALER Narrative BIA SHERI HARLEY) - 10/17/2024 3:36 PM COMPOUNDING SCALER Urine culture reflexed based upon urinalysis results. Testing performed by [facility] ([phone]) Satnam Nair MD LAB MICROBIOLOGY - GENERAL O RDERABLES Final Result Performing Organization Address City/[facility] Co de Phone Number BIA SOUZA) [address] [facility] Department [place] [address] * ECG 12 lead (10/16/2024 10:36 AM COMPOUNDING SCALER) 10/16/2024 10:3 6 AM COMPOUNDING SCALER Narrative [facility] - 10/17/2024 8:41 AM COMPOUNDING SCALER Vent Rate: 65 bpm RR Interval: 922 msec NV Interval: 147 msec QRS Duration: 101 msec QT Interval: 408 msec QTC Interval: 419 msec P-R-T [place]: 54 - 21 - 47 degrees IMPRESSION: SINUS RHYTHM NORMAL ECG Electronically Signed By: Dallas Ahn MD Satnam Nair MD ECG ORDERABLES Final Result Performing Organization Address [facility] Co de Phone Number [facility] [employer] [facility] * eGFR (10/16/2024 9:47 AM COMPOUNDING SCALER) eGFR >90 >=60 mL/min/1. 73 m2 Comment: [...] interpretive data was last reviewed 2021. Blood 10/16/2024 9:47 AM COMPOUNDING SCALER 10/16/2024 10:32 AM COMPOUNDING SCALER us Satnam Nair MD LAB BLOOD ORDERABLES Final R esult [facility] ([place]) [address] [facility] Department [place] [address] * Differential, auto (10/16/2024 9:47 AM COMPOUNDING SCALER) Neutrophil abs 2.8 1.5 - 6.5 K/cumm Imm gran abs 0.0 0.0 - 0.1 K/cumm [facility] ([place]) Lymphocyte abs 1.3 0.8 - 3.3 K/cumm [facility] ([place]) Monocyte abs 0.3 0.2 - 0.8 K/cumm [facility] ([place]) Eosinophil abs 0.1 0.0 - 0.5 K/cumm [facility] ([place]) Basophil abs 0.0 0.0 - 0.1 K/cumm [facility] ([place]) Neutrophil pct 61.2 % [facility] ([place]) Comment: Interpretive Data Percent cell count reference ranges are not reported, since discordance with absolute values may lead to misinterpretation of CBC data. Current Interpretive Data was last revised on 2018. Imm gran pct 0.2 % [facility] ([place]) Comment: Interpretive Data Percent cell count reference ranges are not reported, since discordance with absolute values may lead to misinterpretation of CBC data. Current Interpretive Data was last revised on 2018. Lymphocyte pct 28.3 % [facility] ([place]) Comment: Interpretive Data Percent cell count reference ranges are not reported, since discordance with absolute values may lead to misinterpretation of CBC data. Current Interpretive Data was last revised on 2018. Monocyte pct 7.5 % [facility] ([place]) Comment: Interpretive Data Percent cell count reference ranges are not reported, since discordance with absolute values may lead to misinterpretation of CBC data. Current Interpretive Data was last revised on 2018. Eosinophil pct 2.4 % [facility] ([place]) Comment: Interpretive Data Percent cell count reference ranges are not reported, since discordance with absolute values may lead to misinterpretation of CBC data. Current Interpretive Data was last revised on 2018. Basophil pct 0.4 % [facility] ([place]) Comment: Interpretive Data Percent cell count reference ranges are not reported, since discordance with absolute values may lead to misinterpretation of CBC data. Current Interpretive Data was last revised on 2018. Blood 10/16/2024 9:47 AM COMPOUNDING SCALER 10/16/2024 10:32 AM COMPOUNDING SCALER Satnam Nair MD LAB BLOOD ORDERABLES Final R esult [facility] ([place]) 1 [facility] Department [place] [address] * CBC with auto differential (10/16/2024 9:47 AM COMPOUNDING SCALER) WBC 4.5 3.8 - 9.9 K/cumm Hgb 12.4 11.9 - 15.5 g/dL [facility] ([place]) Hct 38.1 35.6 - 45.5 % [facility] ([place]) Plt 324 150 - 400 K/cumm [facility] ([place]) MPV 9.5 9.1 - 12.3 fL [facility] ([place]) RBC 4.28 3.90 - 5.20 M/cumm [facility] ([place]) MCV 89.0 81.3 - 96.4 fL [facility] ([place]) MCH 29.0 27.1 - 33.3 pg [facility] ([place]) MCHC 32.5 32.3 - 35.7 g/dL [facility] ([place]) RDW CV 13.4 11.1 - 14.9 % [facility] ([place]) RDW SD 43.9 35.7 - 48.1 fL [facility] ([place]) NRBC abs 0.00 0.00 - 0.01 K/cumm [facility] Blood 10/16/2024 9:47 AM COMPOUNDING SCALER 10/16/2024 10:32 AM COMPOUNDING SCALER Satnam Nair MD LAB BLOOD ORDERABLES Final R esult [facility] ([place]) [address] [facility] Department [place] [address] * Comprehensive metabolic panel (10/16/2024 9:47 AM COMPOUNDING SCALER) Sodium 140 135 - 145 mmol/L Potassium, pl 3.6 3.3 - 4.9 mmol/L [facility] Chloride 105 97 - 110 mmol/L [facility]) CO2 23 22 - 32 mmol/L [facility]) Anion gap 12 2 - 15 mmol/L [facility] ([place]) BUN 9 6 - 25 mg/dL [facility] Creatinine 0.73 0.60 - 1.10 mg/dL [facility] ([place]) Glucose 97 70 - 199 mg/dL [facility] ([place]) [...] interpretive data was last revised 2022. Calcium 9.7 8.5 - 10.3 mg/dL [facility] Bilirubin, total 0.7 0.1 - 1.2 mg/dL [facility] ([place]) Protein, pl 7.3 6.5 - 8.5 g/dL [facility] ([place]) Albumin 4.4 3.5 - 5.0 g/dL [facility] ([place]) Alk phos 57 40 - 130 Units/L [facility] ([place]) ALT 8 7 - 45 Units/L [facility] ([place]) AST 10 10 - 45 Units/L [facility] ([place]) Blood 10/16/2024 9:47 AM COMPOUNDING SCALER 10/16/2024 10:32 AM COMPOUNDING SCALER us Satnam Nair MD LAB BLOOD ORDERABLES Final R esult [facility] Department of Laboratories [place] [id number] * Rh Immune Globulin Eval (09/20/2024 4:48 AM COMPOUNDING SCALER) RhIg Administration 1 vial of Rh Immune Globulin (300 mcg dose) RhIg Eligible Yes, eligible [facility] Blood 09/20/2024 4:48 AM COMPOUNDING SCALER 09/20/2024 5:03 AM COMPOUNDING SCALER Narrative [facility] - 09/20/2024 5:36 AM COMPOUNDING SCALER Number of weeks ?->20 weeks or greater antibody screen result:->Negative Rhogam given?->Given Date Given?->08/01/24 Number of vials requested:->1 us Sara Eng MD LAB BLOOD BANK TEST [place] [address] * Bleed Screen (09/20/2024 4:48 AM COMPOUNDING SCALER) [facility] Bleed Screen Negative Blood 09/20/2024 4:48 AM COMPOUNDING SCALER 09/20/2024 5:03 AM COMPOUNDING SCALER Rey Quinonez MD LAB BLOOD BANK TEST ORDERABLE S Final Result Performing Organization Address City/[facility] [place] [address] * ABO/Rh (09/20/2024 4:48 AM COMPOUNDING SCALER) [facility] ABO Rh O Negative Blood 09/20/2024 4:48 AM COMPOUNDING SCALER 09/20/2024 5:03 AM COMPOUNDING SCALER Rey Quinonez MD LAB BLOOD BANK TEST ORDERABLE S Final Result Performing Organization Address City/[facility] [place] [address] * (ABNORMAL) CBC without differential (09/20/2024 4:48 AM COMPOUNDING SCALER) [facility] WBC 10.3(H) 3.8 - 9.9 K/cumm Hgb 9.7(L) 11.9 - 15.5 g/dL [facility] Hct 28.4(L) 35.6 - 45.5 % [facility] Plt 230 150 - 400 K/cumm [facility] MPV 10.8 9.1 - 12.3 fL [facility] RBC 3.22(L) 3.90 - 5.20 M/cumm [facility] MCV 88.2 81.3 - 96.4 fL [facility] MCH 30.1 27.1 - 33.3 pg [facility] MCHC 34.2 32.3 - 35.7 g/dL [facility] RDW CV 13.9 11.1 - 14.9 % [facility] RDW SD 44.6 35.7 - 48.1 fL [facility] NRBC abs 0.00 0.00 - 0.01 K/cumm [facility] Blood 09/20/2024 4:48 AM COMPOUNDING SCALER 09/20/2024 5:11 AM COMPOUNDING SCALER us Sara Eng MD LAB BLOOD ORDERABLES Final R esult [facility] Department [place] [address] * Surgical pathology (09/19/2024 4:06 PM COMPOUNDING SCALER) Tissue (Placenta) 09/19/2024 4:06 PM COMPOUNDING SCALER 09/20/2024 8:37 AM COMPOUNDING SCALER Narrative PATHOLOGY [facility] - 09/26/2024 2:16 PM COMPOUNDING SCALER EPIC results best viewed via link to PDF [facility] Brown [facility] [place] [address] Note to Patients: This report may contain [...] Gender: ??F : ??1995 (Age: 29) Address: ??[facility] [address] [place] [address] ??[id number] [facility] #: ??[id number] Taken:09/19/2024 Received:09/20/2024 Reported: 09/26/2024 Patient Type: [facility] Inpatient ?? Service: Obstetrics Location: [facility] ??6800 Physician(s): ??MD Sara Parker M.D. Diagnosis: ??Placenta, delivery - 662 grams diamnionic, monochorionic, pre-term twin placenta - Acute atherosis - Accelerated villous maturation -Trivascular cords with no histopathologic abnormalities [facility]/09/26/2024 14:16 By this signature, I attest that [...] discrete lesions or infarcts are grossly identified. ??Jig Grinder sections are submitted: ??A1 = arbitrarily assigned twin A, cord and membranes; A2-4 = twin A, parts counter representative parenchyma; A5 = common membrane and T- zone; A6 = arbitrarily assigned twin B, cord and membranes; A7-9 = twin B, parts counter representative parenchyma. ??Jar 3. ? sxv/09/21/2024 11:11 PA(s): Catalino Hernandez MS, PA ([facility])CM By this signature, I attest that the above diagnosis is based upon my personal examination of the slides(and/or other material). Addenda/Procedures The performance characteristics of some immunohistochemical stains, fluorescence in-situ hybridization tests and immunophenotyping by flow cytometry cited in this report (if any) were determined by the Surgical Pathology and Flow Cytometry Departments at [facility] as part of an ongoing quality assurance monitor program and in compliance with federally mandated [...] Surgical Pathology and Flow Cytometry Departments of [facility]. ??It has not been cleared or approved by the U. S. Food and Drug Administration. IMAGES AND SCANNED DOCUMENTS, IF INCLUDED, ONLY VIEWABLE IN PDF VERSION OF REPORT us Sara Eng MD LAB PATHOLOGY ORDERABLES Fin al Result PATHOLOGY [facility] 3rd Floor [place], [place] [phone] * Epidural Block (09/19/2024 2:45 PM COMPOUNDING SCALER) Narrative Abena Denton MD - 09/19/2024 2:45 PM COMPOUNDING SCALER Abena Denton MD ? 09/19/2024 ??2:50 PM [...] Final Result * eGFR (09/18/2024 6:21 AM COMPOUNDING SCALER) Pathologist [facility] eGFR >90 >=60 mL/min/1. 73 m2 [...] last reviewed 2021. Blood 09/18/2024 6:21 AM COMPOUNDING SCALER 09/18/2024 6:32 AM COMPOUNDING SCALER us Anastasia Amaro MD LAB BLOOD ORDERABLES Final Result Performing Organization Address City/[facility]/ZIP Co de Phone Number [facility] Department of [employer] [place] [address] * (ABNORMAL) CBC without differential (09/18/2024 6:21 AM COMPOUNDING SCALER) Pathologist [facility] WBC 10.0(H) 3.8 - 9.9 K/cumm Hgb 11.6(L) 11.9 - 15.5 g/dL [facility] Hct 34.0(L) 35.6 - 45.5 % [facility] Plt 250 150 - 400 K/cumm [facility] MPV 11.0 9.1 - 12.3 fL [facility] RBC 3.92 3.90 - 5.20 M/cumm [facility] MCV 86.7 81.3 - 96.4 fL [facility] MCH 29.6 27.1 - 33.3 pg [facility] MCHC 34.1 32.3 - 35.7 g/dL [facility] RDW CV 13.7 11.1 - 14.9 % [facility] RDW SD 43.1 35.7 - 48.1 fL [facility] NRBC abs 0.00 0.00 - 0.01 K/cumm [facility] Blood 09/18/2024 6:21 AM COMPOUNDING SCALER 09/18/2024 6:32 AM COMPOUNDING SCALER us Anastasia Amaro MD LAB BLOOD ORDERABLES Final Result Performing Organization Address City/[facility]/ZIP Co de Phone Number [facility] Department [place] [address] * Type and screen (09/18/2024 6:21 AM COMPOUNDING SCALER) Abiodun, indirect Negative ABO Rh O Negative [facility] Blood 09/18/2024 6:21 AM COMPOUNDING SCALER 09/18/2024 6:35 AM COMPOUNDING SCALER Narrative [facility] - 09/18/2024 7:42 AM COMPOUNDING SCALER Has the patient had Daratumumab or Isatuximab in the past 6 months?->Unknown Anastasia Amaro MD LAB BLOOD BANK TEST ORDERA BLES Final Result [facility] Department [place] [address] * (ABNORMAL) Comprehensive metabolic panel (09/18/2024 6:21 AM COMPOUNDING SCALER) Sodium 134(L) 135 - 145 mmol/L Potassium, pl 3.8 3.3 - 4.9 mmol/L [facility] Chloride 105 97 - 110 mmol/L [facility] CO2 23 22 - 32 mmol/L [facility] Anion gap 6 2 - 15 mmol/L [facility] BUN 9 6 - 25 mg/dL [facility] Creatinine 0.69 0.60 - 1.10 mg/dL [facility] Glucose 68(L) 70 - 199 mg/dL [facility] Comment: Interpretive Data Fasting glucose >/= 126 [...] 2022. Calcium 9.0 8.5 - 10.3 mg/dL [facility] Bilirubin, total 0.2 0.1 - 1.2 mg/dL [facility] Protein, pl 6.3(L) 6.5 - 8.5 g/dL [facility] Albumin 3.0(L) 3.5 - 5.0 g/dL [facility] Alk phos 125 40 - 130 Units/L [facility] ALT 14 7 - 45 Units/L [facility] AST 16 10 - 45 Units/L [facility] Blood 09/18/2024 6:21 AM COMPOUNDING SCALER 09/18/2024 6:32 AM COMPOUNDING SCALER us Anastasia Amaro MD LAB BLOOD ORDERABLES Final Result [facility] Department [place] [address] * nonstress test (09/17/2024 2:58 PM COMPOUNDING SCALER) Narrative Sandra Christy MD - 09/17/2024 2:58 PM COMPOUNDING SCALER Joellen Schilling MD ? 09/17/2024 ??4:04 PM nonstress test Date/Time: 09/17/2024 2:58 PM Performed by: Maureen Calix MD Authorized by: Ana M Rogers MD ?? us Ana M Rogers MD OB GYNE ORDERABLES Fi nal Result * US Ob Follow Up (09/15/2024 1:08 PM COMPOUNDING SCALER) Fetus# Fetus1 VIEWPOINT Estimated Weight 1,709 g&grams VIEWPOINT Placenta Details anterior VIEWPOINT Presentation Vertex; Maternal right- low VIEWPOINT Fetus# Fetus2 VIEWPOINT Estimated Weight 2,585 g&grams VIEWPOINT Placenta Details anterior VIEWPOINT Presentation Vertex; Maternal left- high VIEWPOINT Anatomical Region Laterality Modality Abdomen N/A Ultrasound 09/15/2024 1:08 PM COMPOUNDING SCALER Impressions 09/15/2024 2:24 PM COMPOUNDING SCALER Diamniotic (presumed MCDA) TIUP at 33w33d who is admitted for preE with severe features who presents for growth US was previously determined to be monochorionic by the [facility] practice. A thin dividing membrane and [...] to be [facility]. A thin dividing membrane and single [...] R esult * eGFR (09/15/2024 6:17 AM COMPOUNDING SCALER) eGFR >90 >=60 mL/min/1. 73 m2 Comment: [...] last reviewed 2021. Blood 09/15/2024 6:17 AM COMPOUNDING SCALER 09/15/2024 6:31 AM COMPOUNDING SCALER Anastasia Amaro MD LAB BLOOD ORDERABLES Final Result Performing Organization Address City/[facility]/ZIP Co de Phone Number [facility] [place] [employer] [place] [address] * (ABNORMAL) CBC without differential (09/15/2024 6:17 AM COMPOUNDING SCALER) WBC 10.1(H) 3.8 - 9.9 K/cumm Hgb 11.7(L) 11.9 - 15.5 g/dL [facility] Hct 34.6(L) 35.6 - 45.5 % [facility] Plt 253 150 - 400 K/cumm [facility] MPV 11.2 9.1 - 12.3 fL [facility] RBC 3.94 3.90 - 5.20 M/cumm [facility] MCV 87.8 81.3 - 96.4 fL [facility] MCH 29.7 27.1 - 33.3 pg [facility] MCHC 33.8 32.3 - 35.7 g/dL [facility] RDW CV 13.8 11.1 - 14.9 % [facility] RDW SD 44.1 35.7 - 48.1 fL [facility] NRBC abs 0.00 0.00 - 0.01 K/cumm [facility] Blood 09/15/2024 6:17 AM COMPOUNDING SCALER 09/15/2024 6:31 AM COMPOUNDING SCALER Anastasia Amaro MD LAB BLOOD ORDERABLES Final Result Performing Organization Address City/[facility]/ZIP Co de Phone Number [facility] [place] [address] * Type and screen (09/15/2024 6:17 AM COMPOUNDING SCALER) Pathologist [facility] Abiodun, indirect Negative Comment:Patient has previous antibody history ABO Rh O Negative [facility] Blood 09/15/2024 6:17 AM COMPOUNDING SCALER 09/15/2024 6:30 AM COMPOUNDING SCALER Narrative [facility] - 09/15/2024 7:57 AM COMPOUNDING SCALER Has the patient had Daratumumab or Isatuximab in the past 6 months?->Unknown Anastasia Amaro MD LAB BLOOD BANK TEST ORDERA BLES Final Result [facility] Department [place] [address] * (ABNORMAL) Comprehensive metabolic panel (09/15/2024 6:17 AM COMPOUNDING SCALER) [facility] Sodium 139 135 - 145 mmol/L Potassium, pl 3.5 3.3 - 4.9 mmol/L [facility] Chloride 106 97 - 110 mmol/L [facility] CO2 21(L) 22 - 32 mmol/L [facility] Anion gap 12 2 - 15 mmol/L [facility] BUN 8 6 - 25 mg/dL [facility] Creatinine 0.66 0.60 - 1.10 mg/dL [facility] Glucose 106 70 - 199 mg/dL [facility] Comment: Interpretive Data Fasting glucose >/= 126 [...] 2022. Calcium 9.0 8.5 - 10.3 mg/dL [facility] Bilirubin, total <0.2 0.1 - 1.2 mg/dL [facility] Protein, pl 6.4(L) 6.5 - 8.5 g/dL [facility] Albumin 3.0(L) 3.5 - 5.0 g/dL [facility] Alk phos 124 40 - 130 Units/L [facility] ALT 19 7 - 45 Units/L [facility] AST 20 10 - 45 Units/L [facility] Blood 09/15/2024 6:17 AM COMPOUNDING SCALER 09/15/2024 6:31 AM COMPOUNDING SCALER us Anastasia Amaro MD LAB BLOOD ORDERABLES Final Result [facility] Department [place] [address] * nonstress test (09/13/2024 5:10 PM COMPOUNDING SCALER) Narrative Sandra Christy MD - 09/13/2024 5:10 PM COMPOUNDING SCALER Anastasia Plaza MD ? 09/13/2024 ??5:21 PM [...] nal Result * eGFR (09/12/2024 6:35 AM COMPOUNDING SCALER) eGFR >90 >=60 mL/min/1. 73 m2 Comment: [...] last reviewed 2021. Blood 09/12/2024 6:35 AM COMPOUNDING SCALER 09/12/2024 6:51 AM COMPOUNDING SCALER us Anastasia Amaro MD LAB BLOOD ORDERABLES Final Result [facility] Department [place] [address] * (ABNORMAL) CBC without differential (09/12/2024 6:35 AM COMPOUNDING SCALER) WBC 10.0(H) 3.8 - 9.9 K/cumm Hgb 11.8(L) 11.9 - 15.5 g/dL [facility] Hct 35.3(L) 35.6 - 45.5 % [facility] Plt 226 150 - 400 K/cumm [facility] MPV 11.2 9.1 - 12.3 fL [facility] RBC 3.97 3.90 - 5.20 M/cumm [facility] MCV 88.9 81.3 - 96.4 fL [facility] MCH 29.7 27.1 - 33.3 pg [facility] MCHC 33.4 32.3 - 35.7 g/dL [facility] RDW CV 13.8 11.1 - 14.9 % [facility] RDW SD 44.5 35.7 - 48.1 fL [facility] NRBC abs 0.02(H) 0.00 - 0.01 K/cumm [facility] Blood 09/12/2024 6:35 AM COMPOUNDING SCALER 09/12/2024 6:52 AM COMPOUNDING SCALER Anastasia Amaro MD LAB BLOOD ORDERABLES Final Result Performing Organization Address [facility] [place] [address] * Type and screen (09/12/2024 6:35 AM COMPOUNDING SCALER) Pathologist [facility] ABO Rh O Negative Abiodun, indirect Negative [facility] Comment:Patient has previous antibody history Blood 09/12/2024 6:35 AM COMPOUNDING SCALER 09/12/2024 6:48 AM COMPOUNDING SCALER Narrative [facility] - 09/12/2024 7:49 AM COMPOUNDING SCALER Has the patient had Daratumumab or Isatuximab in the past 6 months?->Unknown Anastasia Amaro MD LAB BLOOD BANK TEST ORDERA BLES Final Result Performing Organization Address [facility] [place] [address] * (ABNORMAL) Comprehensive metabolic panel (09/12/2024 6:35 AM COMPOUNDING SCALER) Pathologist [facility] Sodium 139 135 - 145 mmol/L Potassium, pl 3.8 3.3 - 4.9 mmol/L [facility] Chloride 107 97 - 110 mmol/L [facility] CO2 22 22 - 32 mmol/L [facility] Anion gap 10 2 - 15 mmol/L [facility] BUN 6 6 - 25 mg/dL [facility] Creatinine 0.64 0.60 - 1.10 mg/dL [facility] Glucose 69(L) 70 - 199 mg/dL [facility] Comment: Interpretive Data Fasting glucose >/= 126 [...] 2022. Calcium 8.8 8.5 - 10.3 mg/dL [facility] Bilirubin, total <0.2 0.1 - 1.2 mg/dL [facility] Protein, pl 6.4(L) 6.5 - 8.5 g/dL [facility] Albumin 3.1(L) 3.5 - 5.0 g/dL [facility] Alk phos 122 40 - 130 Units/L [facility] ALT 22 7 - 45 Units/L [facility] AST 23 10 - 45 Units/L [facility] Blood 09/12/2024 6:35 AM COMPOUNDING SCALER 09/12/2024 6:51 AM COMPOUNDING SCALER us Anastasia Amaro MD LAB BLOOD ORDERABLES Final Result [facility] Department [place] [address] * eGFR (09/09/2024 6:24 AM COMPOUNDING SCALER) eGFR >90 >=60 mL/min/1. 73 m2 Comment: [...] last reviewed 2021. Blood 09/09/2024 6:24 AM COMPOUNDING SCALER 09/09/2024 6:52 AM COMPOUNDING SCALER us Anastasia Amaro MD LAB BLOOD ORDERABLES Final Result [facility] Department [place] [address] * (ABNORMAL) CBC without differential (09/09/2024 6:24 AM COMPOUNDING SCALER) WBC 8.6 3.8 - 9.9 K/cumm Hgb 10.9(L) 11.9 - 15.5 g/dL [facility] Hct 33.1(L) 35.6 - 45.5 % [facility] Plt 239 150 - 400 K/cumm [facility] MPV 11.0 9.1 - 12.3 fL [facility] RBC 3.77(L) 3.90 - 5.20 M/cumm [facility] MCV 87.8 81.3 - 96.4 fL [facility] MCH 28.9 27.1 - 33.3 pg [facility] MCHC 32.9 32.3 - 35.7 g/dL [facility] RDW CV 13.8 11.1 - 14.9 % [facility] RDW SD 43.8 35.7 - 48.1 fL [facility] NRBC abs 0.00 0.00 - 0.01 K/cumm [facility] Blood 09/09/2024 6:24 AM COMPOUNDING SCALER 09/09/2024 6:52 AM COMPOUNDING SCALER Anastasia Amaro MD LAB BLOOD ORDERABLES Final Result Performing Organization Address [facility] [place] [address] * Type and screen (09/09/2024 6:24 AM COMPOUNDING SCALER) [facility] ABO Rh O Negative Abiodun, indirect Negative [facility] Comment:Patient has previous antibody history Blood 09/09/2024 6:24 AM COMPOUNDING SCALER 09/09/2024 7:19 AM COMPOUNDING SCALER Narrative [facility] - 09/09/2024 8:51 AM COMPOUNDING SCALER Has the patient had Daratumumab or Isatuximab in the past 6 months?->Unknown Anastasia Amaro MD LAB BLOOD BANK TEST ORDERA BLES Final Result Performing Organization Address [facility] de Phone Number [facility] [place] [address] * (ABNORMAL) Comprehensive metabolic panel (09/09/2024 6:24 AM COMPOUNDING SCALER) [facility] Sodium 141 135 - 145 mmol/L Potassium, pl 3.8 3.3 - 4.9 mmol/L [facility] Chloride 108 97 - 110 mmol/L [facility] CO2 22 22 - 32 mmol/L [facility] Anion gap 11 2 - 15 mmol/L [facility] BUN 8 6 - 25 mg/dL [facility] Creatinine 0.75 0.60 - 1.10 mg/dL [facility] Glucose 70 70 - 199 mg/dL [facility] Comment: Interpretive Data Fasting glucose >/= 126 [...] 2022. Calcium 8.9 8.5 - 10.3 mg/dL [facility] Bilirubin, total <0.2 0.1 - 1.2 mg/dL [facility] Protein, pl 6.2(L) 6.5 - 8.5 g/dL [facility] Albumin 3.2(L) 3.5 - 5.0 g/[facility] Alk phos 117 40 - 130 Units/L [facility] ALT 22 7 - 45 Units/L [facility] AST 23 10 - 45 Units/L [facility] Blood 09/09/2024 6:24 AM COMPOUNDING SCALER 09/09/2024 6:52 AM COMPOUNDING SCALER us Anastasia Amaro MD LAB BLOOD ORDERABLES Final Result [facility] Department [place] [address] * US Ob Limited (09/08/2024 10:29 AM COMPOUNDING SCALER) Fetus# Fetus1 VIEWPOINT Placenta Details anterior VIEWPOINT Presentation Vertex; Maternal right- low VIEWPOINT Fetus# Fetus2 VIEWPOINT Placenta Details anterior VIEWPOINT Presentation Vertex; Maternal left- high (presenting) VIEWPOINT Anatomical Region Laterality Modality Abdomen N/A Ultrasound 09/08/2024 10:2 9 AM COMPOUNDING SCALER Impressions 09/08/2024 11:25 AM COMPOUNDING SCALER 1. Mo/di twin IUP at 32w 3d. [...] esult * nonstress test (09/06/2024 8:38 PM COMPOUNDING SCALER) Narrative Anastasia Amaro MD - 09/06/2024 8:38 PM COMPOUNDING SCALER Pauline Simms MD ? 09/06/2024 ??8:41 PM Baby A FHR Baseline: 125 Variability: moderate Accelerations: absent Decelerations: absent in last part of tracing, was initially having small variable decels in monitoring Reactive: Yes Baby B FHR Baseline: 130 Variability: moderate Accelerations: present Decelerations: absent Reactive: Yes 29 y.o. at 32w1d a/f preeclampsia with SF On monitor [id number] Contractions: absent I have reviewed NST and instructed RN to take off monitor Pauline Simms MD us Ana M Rogers MD OB GYNE ORDERABLES Fi nal Result * eGFR (09/06/2024 4:31 AM COMPOUNDING SCALER) eGFR >90 >=60 mL/min/1. 73 m2 Comment: [...] last reviewed 2021. Blood 09/06/2024 4:31 AM COMPOUNDING SCALER 09/06/2024 4:53 AM COMPOUNDING SCALER us Anastasia Amaro MD LAB BLOOD ORDERABLES Final Result [facility] Department [place] [address] * (ABNORMAL) CBC without differential (09/06/2024 4:31 AM COMPOUNDING SCALER) WBC 10.3(H) 3.8 - 9.9 K/cumm Hgb 11.7(L) 11.9 - 15.5 g/dL [facility] Hct 34.5(L) 35.6 - 45.5 % [facility] Plt 249 150 - 400 K/cumm [facility] MPV 11.1 9.1 - 12.3 fL [facility] RBC 3.96 3.90 - 5.20 M/cumm [facility] MCV 87.1 81.3 - 96.4 fL [facility] MCH 29.5 27.1 - 33.3 pg [facility] MCHC 33.9 32.3 - 35.7 g/dL [facility] RDW CV 13.6 11.1 - 14.9 % [facility] RDW SD 42.7 35.7 - 48.1 fL [facility] NRBC abs 0.00 0.00 - 0.01 K/cumm [facility] Blood 09/06/2024 4:31 AM COMPOUNDING SCALER 09/06/2024 4:54 AM COMPOUNDING SCALER Anastasia Amaro MD LAB BLOOD ORDERABLES Final Result Performing Organization Address City/[facility]/ZIP Co de Phone Number [facility] Department [place] [employer] [place] [address] * Type and screen (09/06/2024 4:31 AM COMPOUNDING SCALER) ABO Rh O Negative Abiodun, indirect Negative [facility] Comment:Patient has previous antibody history Blood 09/06/2024 4:31 AM COMPOUNDING SCALER 09/06/2024 6:11 AM COMPOUNDING SCALER Narrative [facility] - 09/06/2024 7:16 AM COMPOUNDING SCALER Has the patient had Daratumumab or Isatuximab in the past 6 months?->Unknown Anastasia Amaro MD LAB BLOOD BANK TEST ORDERA BLES Final Result [facility] Department [place] [employer] [place] [address] * (ABNORMAL) Comprehensive metabolic panel (09/06/2024 4:31 AM COMPOUNDING SCALER) Sodium 138 135 - 145 mmol/L Potassium, pl 3.6 3.3 - 4.9 mmol/L [facility] Chloride 105 97 - 110 mmol/L [facility] CO2 24 22 - 32 mmol/L [facility] Anion gap 9 2 - 15 mmol/L [facility] BUN 7 6 - 25 mg/dL [facility] Creatinine 0.63 0.60 - 1.10 mg/dL [facility] Glucose 62(L) 70 - 199 mg/dL [facility] Comment: Interpretive Data Fasting glucose >/= 126 [...] 2022. Calcium 9.3 8.5 - 10.3 mg/dL [facility] Bilirubin, total 0.3 0.1 - 1.2 mg/dL [facility] Protein, pl 6.6 6.5 - 8.5 g/dL [facility] Albumin 3.2(L) 3.5 - 5.0 g/dL [facility] Alk phos 118 40 - 130 Units/L [facility] ALT 23 7 - 45 Units/L [facility] AST 22 10 - 45 Units/L [facility] Blood 09/06/2024 4:31 AM COMPOUNDING SCALER 09/06/2024 4:53 AM COMPOUNDING SCALER Anastasia Amaro MD LAB BLOOD ORDERABLES Final Result [facility] Department [place] [address] * Group B streptococcal culture Vaginal/Rectal (09/03/2024 10:29 AM COMPOUNDING SCALER) Report Final Report: Negative Vaginal/Rectal 09/03/2024 10 :29 AM COMPOUNDING SCALER 09/03/2024 10:47 AM COMPOUNDING SCALER Narrative [facility] - 09/07/2024 11:05 AM COMPOUNDING SCALER Testing performed by [facility] ([phone]). us Joellen Julio MD LAB MICROBIOLOGY - GENERAL O RDERABLES Final Result Performing Organization Address City/[facility]/ZIP Co de Phone Number [facility] Department [place] [address] * eGFR (09/03/2024 5:26 AM COMPOUNDING SCALER) eGFR >90 >=60 mL/min/1. 73 m2 Comment: [...] last reviewed 2021. Blood 09/03/2024 5:26 AM COMPOUNDING SCALER 09/03/2024 5:39 AM COMPOUNDING SCALER us Anastasia Amaro MD LAB BLOOD ORDERABLES Final Result Performing Organization Address City/[facility]/ZIP Co de Phone Number [facility] Department [place] [address] * (ABNORMAL) CBC without differential (09/03/2024 5:26 AM COMPOUNDING SCALER) [facility] WBC 12.1(H) 3.8 - 9.9 K/cumm Hgb 11.7(L) 11.9 - 15.5 g/dL [facility] Hct 34.0(L) 35.6 - 45.5 % [facility] Plt 273 150 - 400 K/cumm [facility] MPV 11.0 9.1 - 12.3 fL [facility] RBC 3.97 3.90 - 5.20 M/cumm [facility] MCV 85.6 81.3 - 96.4 fL [facility] MCH 29.5 27.1 - 33.3 pg [facility] MCHC 34.4 32.3 - 35.7 g/dL [facility] RDW CV 13.3 11.1 - 14.9 % [facility] RDW SD 41.7 35.7 - 48.1 fL [facility] NRBC abs 0.00 0.00 - 0.01 K/cumm [facility] Blood 09/03/2024 5:26 AM COMPOUNDING SCALER 09/03/2024 5:39 AM COMPOUNDING SCALER Anastasia Amaro MD LAB BLOOD ORDERABLES Final Result [facility] [address] [facility] Department [place] [address] * Type and screen (09/03/2024 5:26 AM COMPOUNDING SCALER) [facility] Abiodun, indirect Negative Comment:Patient has previous antibody history ABO Rh O Negative [facility] Blood 09/03/2024 5:26 AM COMPOUNDING SCALER 09/03/2024 5:32 AM COMPOUNDING SCALER Narrative [facility] - 09/03/2024 6:27 AM COMPOUNDING SCALER Has the patient had Daratumumab or Isatuximab in the past 6 months?->Unknown Anastasia Amaro MD LAB BLOOD BANK TEST ORDERA BLES Final Result [facility] [address] [facility] Department [place] [address] * (ABNORMAL) Comprehensive metabolic panel (09/03/2024 5:26 AM COMPOUNDING SCALER) Sodium 139 135 - 145 mmol/L Potassium, pl 4.0 3.3 - 4.9 mmol/L [facility] Chloride 105 97 - 110 mmol/L [facility] CO2 20(L) 22 - 32 mmol/L [facility] Anion gap 14 2 - 15 mmol/L [facility] BUN 8 6 - 25 mg/dL [facility] Creatinine 0.55(L) 0.60 - 1.10 mg/dL [facility] Glucose 68(L) 70 - 199 mg/dL [facility] Comment: Interpretive Data Fasting glucose >/= 126 [...] 2022. Calcium 9.3 8.5 - 10.3 mg/dL [facility] Bilirubin, total 0.3 0.1 - 1.2 mg/dL [facility] Protein, pl 6.4(L) 6.5 - 8.5 g/dL [facility] Albumin 3.3(L) 3.5 - 5.0 g/dL [facility] Alk phos 111 40 - 130 Units/L [facility] ALT 22 7 - 45 Units/L [facility] AST 24 10 - 45 Units/L [facility] Blood 09/03/2024 5:26 AM COMPOUNDING SCALER 09/03/2024 5:39 AM COMPOUNDING SCALER us Anastasia Amaro MD LAB BLOOD ORDERABLES Final Result Performing Organization Address [facility] Co de Phone Number [facility] [address] [facility] Department [place] [address] * ECG 12 lead (09/02/2024 4:33 PM COMPOUNDING SCALER) Pathologist [facility] Ventricular Rate EKG/Min 110 BPM [facility] Atrial Rate 110 BPM [facility] NV-Interval (MSEC) 130 ms [facility] QRS-Interval (MSEC) 82 ms [facility] QT-Interval (MSEC) 340 ms [facility] QTc 460 ms [facility] P [place] 55 degrees [facility] R [place] 22 degrees [facility] T [place] 30 degrees [facility] Diagnosis Sinus tachycardia Otherwise normal ECG No previous ECGs available Confirmed by SAMANTA KAPLAN M.D ([id number]) on 09/06/2024 2:44:26 PM [facility] 09/02/2024 4:33 PM COMPOUNDING SCALER 09/06/2024 2:44 PM COMPOUNDING SCALER us Joellen Julio MD ECG ORDERABLES Final Result Performing Organization Address [facility] de Phone Number [facility] * eGFR (08/31/2024 6:20 AM COMPOUNDING SCALER) eGFR >90 >=60 mL/min/1. 73 m2 Comment: [...] last reviewed 2021. Blood 08/31/2024 6:20 AM COMPOUNDING SCALER 08/31/2024 7:25 AM COMPOUNDING SCALER us Anastasia Amaro MD LAB BLOOD ORDERABLES Final Result [facility] [address] Department [place] [address] * (ABNORMAL) CBC without differential (08/31/2024 6:20 AM COMPOUNDING SCALER) WBC 10.5(H) 3.8 - 9.9 K/cumm Hgb 11.5(L) 11.9 - 15.5 g/dL [facility] Hct 34.1(L) 35.6 - 45.5 % [facility] Plt 282 150 - 400 K/cumm [facility] MPV 10.9 9.1 - 12.3 fL [facility] RBC 3.93 3.90 - 5.20 M/cumm [facility] MCV 86.8 81.3 - 96.4 fL [facility] MCH 29.3 27.1 - 33.3 pg [facility] MCHC 33.7 32.3 - 35.7 g/dL [facility] RDW CV 13.7 11.1 - 14.9 % [facility] RDW SD 42.6 35.7 - 48.1 fL [facility] NRBC abs 0.00 0.00 - 0.01 K/cumm [facility] Blood 08/31/2024 6:20 AM COMPOUNDING SCALER 08/31/2024 7:25 AM COMPOUNDING SCALER us Anastasia Amaro MD LAB BLOOD ORDERABLES Final Result Performing Organization Address [facility] [place] [address] * Type and screen (08/31/2024 6:20 AM COMPOUNDING SCALER) Pathologist [facility] ABO Rh O Negative Abiodun, indirect Negative [facility] Comment:Patient has previous antibody history Blood 08/31/2024 6:20 AM COMPOUNDING SCALER 08/31/2024 7:41 AM COMPOUNDING SCALER Narrative [facility] - 08/31/2024 8:26 AM COMPOUNDING SCALER Has the patient had Daratumumab or Isatuximab in the past 6 months?->Unknown Anastasia Amaro MD LAB BLOOD BANK TEST ORDERA BLES Final Result Performing Organization Address [facility] de Phone Number [facility] [employer] [place] [address] * (ABNORMAL) Comprehensive metabolic panel (08/31/2024 6:20 AM COMPOUNDING SCALER) [facility] Sodium 137 135 - 145 mmol/L Potassium, pl 3.7 3.3 - 4.9 mmol/L [facility] Chloride 103 97 - 110 mmol/L [facility] CO2 22 22 - 32 mmol/L [facility] Anion gap 12 2 - 15 mmol/L [facility] BUN 6 6 - 25 mg/dL [facility] Creatinine 0.56(L) 0.60 - 1.10 mg/dL [facility] Glucose 70 70 - 199 mg/dL [facility] Comment: Interpretive Data Fasting glucose >/= 126 [...] 2022. Calcium 9.5 8.5 - 10.3 mg/dL [facility] Bilirubin, total 0.2 0.1 - 1.2 mg/dL [facility] Protein, pl 6.4(L) 6.5 - 8.5 g/dL [facility] Albumin 3.2(L) 3.5 - 5.0 g/dL [facility] Alk phos 103 40 - 130 Units/L [facility] ALT 28 7 - 45 Units/L [facility] AST 25 10 - 45 Units/L [facility] Blood 08/31/2024 6:20 AM COMPOUNDING SCALER 08/31/2024 7:25 AM COMPOUNDING SCALER us Anastasia Amaro MD LAB BLOOD ORDERABLES Final Result [facility] [address] [facility] Department [place] [address] * nonstress test (08/29/2024 2:32 PM COMPOUNDING SCALER) Narrative Nini Cortez MD - 08/29/2024 2:32 PM COMPOUNDING SCALER Maureen Calix MD ? 08/29/2024 ??3:38 PM nonstress test Date/Time: 08/29/2024 2:32 PM Performed by: Maureen Calix MD Authorized by: Ana M Rogers MD ?? us Ana M Rogers MD OB GYNE ORDERABLES Fi nal Result * nonstress test (08/28/2024 7:47 PM COMPOUNDING SCALER) Narrative Nini Cortez MD - 08/28/2024 7:47 PM COMPOUNDING SCALER Francisca Yun MD ? 08/28/2024 ??7:48 PM A FHR Baseline: 120 Variability: moderate Reactive: Yes Contractions: absent B FHR Baseline: 130 Variability: moderate Reactive: Yes Contractions: absent Comments: No decels x2 I have reviewed NST and instructed RN to take off monitor Francisca Yun MD us Ana M Rogers MD OB GYNE ORDERABLES Fi nal Result * eGFR (08/28/2024 6:00 AM COMPOUNDING SCALER) [facility] eGFR >90 >=60 mL/min/1. 73 [...] last reviewed 2021. Blood 08/28/2024 6:00 AM COMPOUNDING SCALER 08/28/2024 6:13 AM COMPOUNDING SCALER us Anastasia Amaro MD LAB BLOOD ORDERABLES Final Result [facility] [address] [facility] Department of Laboratories [place], [place] [id number] * (ABNORMAL) CBC without differential (08/28/2024 6:00 AM COMPOUNDING SCALER) [facility] WBC 10.3(H) 3.8 - 9.9 K/cumm Hgb 11.2(L) 11.9 - 15.5 g/dL [facility] Hct 33.0(L) 35.6 - 45.5 % [facility] Plt 289 150 - 400 K/cumm [facility] MPV 10.7 9.1 - 12.3 fL [facility] RBC 3.78(L) 3.90 - 5.20 M/cumm [facility] MCV 87.3 81.3 - 96.4 fL [facility] MCH 29.6 27.1 - 33.3 pg [facility] MCHC 33.9 32.3 - 35.7 g/dL [facility] RDW CV 13.7 11.1 - 14.9 % [facility] RDW SD 43.6 35.7 - 48.1 fL [facility] NRBC abs 0.00 0.00 - 0.01 K/cumm [facility] Blood 08/28/2024 6:00 AM COMPOUNDING SCALER 08/28/2024 6:20 AM COMPOUNDING SCALER Anastasia Amaro MD LAB BLOOD ORDERABLES Final Result Performing Organization Address City/[facility]/ZIP Co de Phone Number [facility] [place] [address] * Type and screen (08/28/2024 6:00 AM COMPOUNDING SCALER) ABO Rh O Negative Comment:Patient has previous antibody history Abiodun, indirect Negative [facility] Blood 08/28/2024 6:00 AM COMPOUNDING SCALER 08/28/2024 6:54 AM COMPOUNDING SCALER Narrative [facility] - 08/28/2024 7:53 AM COMPOUNDING SCALER Has the patient had Daratumumab or Isatuximab in the past 6 months?->Unknown Anastasia Amaro MD LAB BLOOD BANK TEST ORDERA BLES Final Result Performing Organization Address City/[facility]/ZIP Co de Phone Number [facility] [place] [address] * (ABNORMAL) Comprehensive metabolic panel (08/28/2024 6:00 AM COMPOUNDING SCALER) Sodium 137 135 - 145 mmol/L Potassium, pl 3.6 3.3 - 4.9 mmol/L [facility] Chloride 105 97 - 110 mmol/L [facility] CO2 21(L) 22 - 32 mmol/L [facility] Anion gap 11 2 - 15 mmol/L [facility] BUN 8 6 - 25 mg/dL [facility] Creatinine 0.52(L) 0.60 - 1.10 mg/dL [facility] Glucose 74 70 - 199 mg/dL [facility] Comment: Interpretive Data Fasting glucose >/= 126 [...] 2022. Calcium 9.3 8.5 - 10.3 mg/dL [facility] Bilirubin, total 0.2 0.1 - 1.2 mg/dL [facility] Protein, pl 6.2(L) 6.5 - 8.5 g/dL [facility] Albumin 3.2(L) 3.5 - 5.0 g/dL [facility] Alk phos 96 40 - 130 Units/L [facility] ALT 25 7 - 45 Units/L [facility] AST 22 10 - 45 Units/L [facility] Blood 08/28/2024 6:00 AM COMPOUNDING SCALER 08/28/2024 6:13 AM COMPOUNDING SCALER us Anastasia Amaro MD LAB BLOOD ORDERABLES Final Result [facility] [address] [facility] Department [place] [address] * eGFR (08/25/2024 6:19 AM COMPOUNDING SCALER) Pathologist [facility] eGFR >90 >=60 mL/min/1. 73 m2 [...] last reviewed 2021. Blood 08/25/2024 6:19 AM COMPOUNDING SCALER 08/25/2024 6:33 AM COMPOUNDING SCALER us Anastasia Amaro MD LAB BLOOD ORDERABLES Final Result [facility] [address] [place] [address] * (ABNORMAL) CBC without differential (08/25/2024 6:19 AM COMPOUNDING SCALER) Pathologist [facility] WBC 10.5(H) 3.8 - 9.9 K/cumm Hgb 11.4(L) 11.9 - 15.5 g/dL [facility] Hct 33.4(L) 35.6 - 45.5 % [facility] Plt 299 150 - 400 K/cumm [facility] MPV 10.6 9.1 - 12.3 fL [facility] RBC 3.90 3.90 - 5.20 M/cumm [facility] MCV 85.6 81.3 - 96.4 fL [facility] MCH 29.2 27.1 - 33.3 pg [facility] MCHC 34.1 32.3 - 35.7 g/dL [facility] RDW CV 13.4 11.1 - 14.9 % [facility] RDW SD 41.7 35.7 - 48.1 fL [facility] NRBC abs 0.00 0.00 - 0.01 K/cumm [facility] Blood 08/25/2024 6:19 AM COMPOUNDING SCALER 08/25/2024 6:32 AM COMPOUNDING SCALER Anastasia Amaro MD LAB BLOOD ORDERABLES Final Result Performing Organization Address City/[facility] Co de Phone Number [facility] Department [place] [employer] [address] * Type and screen (08/25/2024 6:19 AM COMPOUNDING SCALER) Pathologist [facility] Abiodun, indirect Negative Comment:Patient has previous antibody history ABO Rh O Negative [facility] Blood 08/25/2024 6:19 AM COMPOUNDING SCALER 08/25/2024 7:06 AM COMPOUNDING SCALER Narrative [facility] - 08/25/2024 8:01 AM COMPOUNDING SCALER Has the patient had Daratumumab or Isatuximab in the past 6 months?->Unknown Anastasia Amaro MD LAB BLOOD BANK TEST ORDERA BLES Final Result Performing Organization Address City/[facility]/ZIP Co de Phone Number [facility] [place] [address] * (ABNORMAL) Comprehensive metabolic panel (08/25/2024 6:19 AM COMPOUNDING SCALER) [facility] Sodium 139 135 - 145 mmol/L Potassium, pl 3.5 3.3 - 4.9 mmol/L [facility] Chloride 105 97 - 110 mmol/L [facility] CO2 22 22 - 32 mmol/L [facility] Anion gap 12 2 - 15 mmol/L [facility] BUN 6 6 - 25 mg/dL [facility] Creatinine 0.53(L) 0.60 - 1.10 mg/dL [facility] Glucose 70 70 - 199 mg/dL [facility] Comment: Interpretive Data Fasting glucose >/= 126 [...] 2022. Calcium 9.2 8.5 - 10.3 mg/dL [facility] Bilirubin, total 0.2 0.1 - 1.2 mg/dL [facility] Protein, pl 6.4(L) 6.5 - 8.5 g/dL [facility] Albumin 3.2(L) 3.5 - 5.0 g/dL [facility] Alk phos 92 40 - 130 Units/L [facility] ALT 22 7 - 45 Units/L [facility] AST 22 10 - 45 Units/L [facility] Blood 08/25/2024 6:19 AM COMPOUNDING SCALER 08/25/2024 6:33 AM COMPOUNDING SCALER us Anastasia Amaro MD LAB BLOOD ORDERABLES Final Result [facility] [address] [facility] [place] [address] * US Ob Follow Up (08/24/2024 9:37 AM COMPOUNDING SCALER) Fetus# Fetus1 VIEWPOINT Estimated Weight 1,348 g&grams VIEWPOINT Placenta Details anterior VIEWPOINT Presentation Vertex; Maternal right- low VIEWPOINT Fetus# Fetus2 VIEWPOINT Estimated Weight 1,784 g&grams VIEWPOINT Placenta Details anterior VIEWPOINT Presentation Vertex; Maternal left- high (presenting) VIEWPOINT Anatomical Region Laterality Modality Abdomen N/A Ultrasound 08/24/2024 9:37 AM COMPOUNDING SCALER Impressions 08/24/2024 2:06 PM COMPOUNDING SCALER 1. Presumed Mo/Di twin IUP at 30w [...] Edite d * eGFR (08/22/2024 6:02 AM COMPOUNDING SCALER) eGFR >90 >=60 mL/min/1. 73 m2 Comment: [...] last reviewed 2021. Blood 08/22/2024 6:02 AM COMPOUNDING SCALER 08/22/2024 6:18 AM COMPOUNDING SCALER us Anastaisa Amaro MD LAB BLOOD ORDERABLES Final Result [facility] [address] [facility] Department [place] [address] * (ABNORMAL) CBC without differential (08/22/2024 6:02 AM COMPOUNDING SCALER) Pathologist [facility] WBC 12.2(H) 3.8 - 9.9 K/cumm Hgb 11.8(L) 11.9 - 15.5 g/dL [facility] Hct 34.4(L) 35.6 - 45.5 % [facility] Plt 277 150 - 400 K/cumm [facility] MPV 10.4 9.1 - 12.3 fL [facility] RBC 4.02 3.90 - 5.20 M/cumm [facility] MCV 85.6 81.3 - 96.4 fL [facility] MCH 29.4 27.1 - 33.3 pg [facility] MCHC 34.3 32.3 - 35.7 g/dL [facility] RDW CV 13.6 11.1 - 14.9 % [facility] RDW SD 42.4 35.7 - 48.1 fL [facility] NRBC abs 0.00 0.00 - 0.01 K/cumm [facility] Blood 08/22/2024 6:02 AM COMPOUNDING SCALER 08/22/2024 6:18 AM COMPOUNDING SCALER Anastasia Amaro MD LAB BLOOD ORDERABLES Final Result [facility] Department [place] [address] * Type and screen (08/22/2024 6:02 AM COMPOUNDING SCALER) Pathologist [facility] Abiodun, indirect Negative Comment:Patient has previous antibody history ABO Rh O Negative [facility] Blood 08/22/2024 6:02 AM COMPOUNDING SCALER 08/22/2024 6:24 AM COMPOUNDING SCALER Narrative [facility] - 08/22/2024 7:25 AM COMPOUNDING SCALER Has the patient had Daratumumab or Isatuximab in the past 6 months?->Unknown Anastasia Amaro MD LAB BLOOD BANK TEST ORDERA BLES Final Result [facility] [address] [facility] [place] [address] * (ABNORMAL) Comprehensive metabolic panel (08/22/2024 6:02 AM COMPOUNDING SCALER) Sodium 138 135 - 145 mmol/L Potassium, pl 3.7 3.3 - 4.9 mmol/L [facility] Chloride 104 97 - 110 mmol/L [facility] CO2 23 22 - 32 mmol/L [facility] Anion gap 11 2 - 15 mmol/L [facility] BUN 7 6 - 25 mg/dL [facility] Creatinine 0.53(L) 0.60 - 1.10 mg/dL [facility] Glucose 72 70 - 199 mg/dL [facility] Comment: Interpretive Data Fasting glucose >/= 126 [...] 2022. Calcium 9.3 8.5 - 10.3 mg/dL [facility] Bilirubin, total 0.2 0.1 - 1.2 mg/dL [facility] Protein, pl 6.6 6.5 - 8.5 g/dL [facility] Albumin 3.2(L) 3.5 - 5.0 g/dL [facility] Alk phos 90 40 - 130 Units/L [facility] ALT 19 7 - 45 Units/L [facility] AST 18 10 - 45 Units/L [facility] Blood 08/22/2024 6:02 AM COMPOUNDING SCALER 08/22/2024 6:18 AM COMPOUNDING SCALER us Anastasia Amaro MD LAB BLOOD ORDERABLES Final Result [facility] [address] [facility] [place] [address] * eGFR (08/19/2024 6:25 AM COMPOUNDING SCALER) eGFR >90 >=60 mL/min/1. 73 m2 Comment: [...] last reviewed 2021. Blood 08/19/2024 6:25 AM COMPOUNDING SCALER 08/19/2024 7:23 AM COMPOUNDING SCALER us Anastasia Amaro MD LAB BLOOD ORDERABLES Final Result [facility] [address] [facility] Department [place] [address] * (ABNORMAL) CBC without differential (08/19/2024 6:25 AM COMPOUNDING SCALER) WBC 11.2(H) 3.8 - 9.9 K/cumm Hgb 11.3(L) 11.9 - 15.5 g/dL [facility] Hct 33.9(L) 35.6 - 45.5 % [facility] Plt 249 150 - 400 K/cumm [facility] MPV 10.6 9.1 - 12.3 fL [facility] RBC 3.89(L) 3.90 - 5.20 M/cumm [facility] MCV 87.1 81.3 - 96.4 fL [facility] MCH 29.0 27.1 - 33.3 pg [facility] MCHC 33.3 32.3 - 35.7 g/dL [facility] RDW CV 13.4 11.1 - 14.9 % [facility] RDW SD 42.5 35.7 - 48.1 fL [facility] NRBC abs 0.00 0.00 - 0.01 K/cumm [facility] Blood 08/19/2024 6:25 AM COMPOUNDING SCALER 08/19/2024 7:23 AM COMPOUNDING SCALER Anastasia Amaro MD LAB BLOOD ORDERABLES Final Result Performing Organization Address City/[facility]/ZIP Co de Phone Number [facility] Department [place] [address] * Type and screen (08/19/2024 6:25 AM COMPOUNDING SCALER) Abiodun, indirect Negative ABO Rh O Negative [facility] Comment:Patient has previous antibody history Blood 08/19/2024 6:25 AM COMPOUNDING SCALER 08/19/2024 7:31 AM COMPOUNDING SCALER Narrative [facility] - 08/19/2024 8:22 AM COMPOUNDING SCALER Has the patient had Daratumumab or Isatuximab in the past 6 months?->Unknown Anastasia Amaro MD LAB BLOOD BANK TEST ORDERA BLES Final Result [facility] [place] [address] * (ABNORMAL) Comprehensive metabolic panel (08/19/2024 6:25 AM COMPOUNDING SCALER) [facility] Sodium 138 135 - 145 mmol/L Potassium, pl 3.7 3.3 - 4.9 mmol/L [facility] Chloride 105 97 - 110 mmol/L [facility] CO2 23 22 - 32 mmol/L [facility] Anion gap 10 2 - 15 mmol/L [facility] BUN 7 6 - 25 mg/dL [facility] Creatinine 0.54(L) 0.60 - 1.10 mg/dL [facility] Glucose 68(L) 70 - 199 mg/dL [facility] Comment: Interpretive Data Fasting glucose >/= 126 [...] 2022. Calcium 9.3 8.5 - 10.3 mg/dL [facility] Bilirubin, total 0.2 0.1 - 1.2 mg/dL [facility] Protein, pl 6.3(L) 6.5 - 8.5 g/dL [facility] Albumin 3.0(L) 3.5 - 5.0 g/dL [facility] Alk phos 88 40 - 130 Units/L [facility] ALT 13 7 - 45 Units/L [facility] AST 18 10 - 45 Units/L [facility] Blood 08/19/2024 6:25 AM COMPOUNDING SCALER 08/19/2024 7:23 AM COMPOUNDING SCALER us Anastasia Amaro MD LAB BLOOD ORDERABLES Final Result [facility] [address] [facility] [place] [address] * US Ob Limited (08/16/2024 8:35 AM COMPOUNDING SCALER) Fetus# Fetus1 VIEWPOINT Placenta Details anterior VIEWPOINT Presentation Transverse, maternal right-low VIEWPOINT Fetus# Fetus2 VIEWPOINT Placenta Details anterior VIEWPOINT Presentation Vertex; Maternal left- high VIEWPOINT Anatomical Region Laterality Modality Abdomen N/A Ultrasound 08/16/2024 8:36 AM COMPOUNDING SCALER Impressions 08/16/2024 2:23 PM COMPOUNDING SCALER Diamniotic (presumed MCDA) TIUP at 29w1d who is admitted for preE with severe features who presents for ??TTTS screen.Chorionicity was not fully assessed but was previously determined to be monochorionic by the [facility] practice. Anatomic surveys were also completed [...] [facility]. Anatomic surveys were also completed there. [...] Result * Antibody identification (08/16/2024 7:34 AM COMPOUNDING SCALER) Antibody ID 1 Passive Anti-D Blood 08/16/2024 7:34 AM COMPOUNDING SCALER 08/16/2024 7:34 AM COMPOUNDING SCALER us Anastasia Amaro MD LAB BLOOD BANK TEST ORDERA BLES Final Result Performing Organization Address City/State/[facility] Co de Phone Number [facility] [address] [facility] Department [place] [address] * eGFR (08/16/2024 6:15 AM COMPOUNDING SCALER) eGFR >90 >=60 mL/min/1. 73 m2 Comment: [...] last reviewed 2021. Blood 08/16/2024 6:15 AM COMPOUNDING SCALER 08/16/2024 6:29 AM COMPOUNDING SCALER Anastasia Amaro MD LAB BLOOD ORDERABLES Final Result Performing Organization Address City/[facility]/ZIP Co de Phone Number [facility] [place] [address] * Thyroid Function Mayes (08/16/2024 6:15 AM COMPOUNDING SCALER) [facility] TSH 3.83 0.30 - 4.20 mcIUnit/mL Blood 08/16/2024 6:15 AM COMPOUNDING SCALER 08/16/2024 6:29 AM COMPOUNDING SCALER Anastasia Amaro MD LAB BLOOD ORDERABLES Final Result Performing Organization Address [facility] de Phone Number [facility] [place] [address] * (ABNORMAL) CBC without differential (08/16/2024 6:15 AM COMPOUNDING SCALER) [facility] WBC 10.9(H) 3.8 - 9.9 K/cumm Hgb 11.6(L) 11.9 - 15.5 g/dL [facility] Hct 34.0(L) 35.6 - 45.5 % [facility] Plt 257 150 - 400 K/cumm [facility] MPV 10.4 9.1 - 12.3 fL [facility] RBC 3.95 3.90 - 5.20 M/cumm [facility] MCV 86.1 81.3 - 96.4 fL [facility] MCH 29.4 27.1 - 33.3 pg [facility] MCHC 34.1 32.3 - 35.7 g/dL [facility] RDW CV 13.3 11.1 - 14.9 % [facility] RDW SD 41.5 35.7 - 48.1 fL [facility] NRBC abs 0.00 0.00 - 0.01 K/cumm [facility] Blood 08/16/2024 6:15 AM COMPOUNDING SCALER 08/16/2024 6:30 AM COMPOUNDING SCALER Anastasia Amaro MD LAB BLOOD ORDERABLES Final Result Performing Organization Address [facility] [place] [address] * (ABNORMAL) Type and screen (08/16/2024 6:15 AM COMPOUNDING SCALER) Pathologist [facility] Abiodun, indirect Positive(A) ABO Rh O Negative [facility] Blood 08/16/2024 6:15 AM COMPOUNDING SCALER 08/16/2024 6:25 AM COMPOUNDING SCALER Narrative [facility] - 08/16/2024 7:34 AM COMPOUNDING SCALER Has the patient had Daratumumab or Isatuximab in the past 6 months?->Unknown Anastasia Amaro MD LAB BLOOD BANK TEST ORDERA BLES Final Result Performing Organization Address [facility] de Phone Number [facility] [place] [address] * (ABNORMAL) Comprehensive metabolic panel (08/16/2024 6:15 AM COMPOUNDING SCALER) [facility] Sodium 139 135 - 145 mmol/L Potassium, pl 3.4 3.3 - 4.9 mmol/L [facility] Chloride 105 97 - 110 mmol/L [facility] CO2 23 22 - 32 mmol/L [facility] Anion gap 11 2 - 15 mmol/L [facility] BUN 8 6 - 25 mg/dL [facility] Creatinine 0.51(L) 0.60 - 1.10 mg/dL [facility] Glucose 72 70 - 199 mg/dL [facility] Comment: Interpretive Data Fasting glucose >/= 126 [...] 2022. Calcium 9.2 8.5 - 10.3 mg/dL [facility] Bilirubin, total 0.2 0.1 - 1.2 mg/dL [facility] Protein, pl 6.4(L) 6.5 - 8.5 g/dL [facility] Albumin 3.2(L) 3.5 - 5.0 g/dL [facility] Alk phos 86 40 - 130 Units/L [facility] ALT 16 7 - 45 Units/L [facility] AST 16 10 - 45 Units/L [facility] Blood 08/16/2024 6:15 AM COMPOUNDING SCALER 08/16/2024 6:29 AM COMPOUNDING SCALER us Anastasia Amaro MD LAB BLOOD ORDERABLES Final Result Performing Organization Address [facility] Co de Phone Number [facility] Department [place] [employer] [place] [address] * POCT glucose (08/14/2024 3:06 PM COMPOUNDING SCALER) Glucose, POC 103 70 - 199 mg/dL Comment:Post Meal Glucose comment 1 Post Meal [facility] Blood 08/14/2024 3:06 PM COMPOUNDING SCALER 08/14/2024 3:06 PM COMPOUNDING SCALER Anastasia Amaro MD LAB POCT ORDERABLES - JELENA CE Final Result [facility] [place] [employer] [place] [address] * ECG 12 lead (08/13/2024 9:02 AM COMPOUNDING SCALER) Ventricular Rate EKG/Min 122 BPM [facility] Atrial Rate 122 BPM [facility] NV-Interval (MSEC) 132 ms [facility] QRS-Interval (MSEC) 80 ms [facility] QT-Interval (MSEC) 324 ms [facility] QTc 461 ms [facility] P [place] 49 degrees [facility] R [place] 18 degrees [facility] T [place] 29 degrees [facility] Diagnosis Sinus tachycardia Otherwise normal ECG When compared with ECG of 04-AUG-2024 17:45, No significant change was found Confirmed by SAMANTA KAPLAN M.D ([id number]) on 08/15/2024 12:21:02 PM [facility] 08/13/2024 9:02 AM COMPOUNDING SCALER 08/15/2024 12:21 PM COMPOUNDING SCALER Anastasia Amaro MD ECG ORDERABLES Final Resu lt Performing Organization Address City/[facility]/ZIP Co de Phone Number [facility] * Antibody identification (08/13/2024 7:42 AM COMPOUNDING SCALER) Pathologist [facility] Antibody ID 1 Passive Anti-D Blood 08/13/2024 7:42 AM COMPOUNDING SCALER 08/13/2024 7:42 AM COMPOUNDING SCALER us Anastasia Amaro MD LAB BLOOD BANK TEST ORDERA BLES Final Result Performing Organization Address City/[facility] Co de Phone Number [facility] Department [place] [address] * eGFR (08/13/2024 5:44 AM COMPOUNDING SCALER) Pathologist [facility] eGFR >90 >=60 mL/min/1. 73 m2 [...] last reviewed 2021. Blood 08/13/2024 5:44 AM COMPOUNDING SCALER 08/13/2024 6:05 AM COMPOUNDING SCALER Anastasia Amaro MD LAB BLOOD ORDERABLES Final Result Performing Organization Address [facility] Co de Phone Number [facility] [place] [place] [address] * HIV 1/2 Antibody plus p24 Antigen Blood (08/13/2024 5:44 AM COMPOUNDING SCALER) HIV 1/2 ab + p24 ag Nonreactive Nonreactive Comment:Nonreactive for HIV- 1 antigen and HIV-1/HIV-2 antibodies. No laboratory evidence of HIV infection. If acute HIV infection is suspected, consider testing for HIV-1 RNA. Current interpretive data was last revised on 22. Blood 08/13/2024 5:44 AM COMPOUNDING SCALER 08/13/2024 6:05 AM COMPOUNDING SCALER Anastasia Amaro MD LAB MICROBIOLOGY - GENERAL ORDERABLES Final Result Performing Organization Address [facility] Co de Phone Number [facility] Department [place] [address] * RPR Blood (08/13/2024 5:44 AM COMPOUNDING SCALER) RPR Nonreactive Nonreactive Blood 08/13/2024 5:44 AM COMPOUNDING SCALER 08/13/2024 6:05 AM COMPOUNDING SCALER Anastasia Amaro MD LAB MICROBIOLOGY - GENERAL ORDERABLES Final Result Performing Organization Address [facility] Co de Phone Number [facility] [place] [address] * (ABNORMAL) CBC without differential (08/13/2024 5:44 AM COMPOUNDING SCALER) Pathologist [facility] WBC 12.4(H) 3.8 - 9.9 K/cumm Hgb 11.8(L) 11.9 - 15.5 g/dL [facility] Hct 34.4(L) 35.6 - 45.5 % [facility] Plt 295 150 - 400 K/cumm [facility] MPV 10.3 9.1 - 12.3 fL [facility] RBC 3.93 3.90 - 5.20 M/cumm [facility] MCV 87.5 81.3 - 96.4 fL [facility] MCH 30.0 27.1 - 33.3 pg [facility] MCHC 34.3 32.3 - 35.7 g/dL [facility] RDW CV 13.6 11.1 - 14.9 % [facility] RDW SD 43.5 35.7 - 48.1 fL [facility] NRBC abs 0.00 0.00 - 0.01 K/cumm [facility] Blood 08/13/2024 5:44 AM COMPOUNDING SCALER 08/13/2024 6:05 AM COMPOUNDING SCALER us Anastasia Amaro MD LAB BLOOD ORDERABLES Final Result [facility] Department [place] [address] * (ABNORMAL) Type and screen (08/13/2024 5:44 AM COMPOUNDING SCALER) Pathologist [facility] ABO Rh O Negative Abiodun, indirect Positive(A) [facility] Blood 08/13/2024 5:44 AM COMPOUNDING SCALER 08/13/2024 6:19 AM COMPOUNDING SCALER Narrative [facility] - 08/13/2024 7:42 AM COMPOUNDING SCALER Has the patient had Daratumumab or Isatuximab in the past 6 months?->Unknown us Anastasia Amaro MD LAB BLOOD BANK TEST ORDERA BLES Final Result [facility] Department [place] [address] * (ABNORMAL) Comprehensive metabolic panel (08/13/2024 5:44 AM COMPOUNDING SCALER) [facility] Sodium 137 135 - 145 mmol/L Potassium, pl 3.7 3.3 - 4.9 mmol/L [facility] Chloride 104 97 - 110 mmol/L [facility] CO2 22 22 - 32 mmol/L [facility] Anion gap 11 2 - 15 mmol/L [facility] BUN 8 6 - 25 mg/dL [facility] Creatinine 0.49(L) 0.60 - 1.10 mg/dL [facility] Glucose 74 70 - 199 mg/dL [facility] Comment: Interpretive Data Fasting glucose >/= 126 [...] 2022. Calcium 9.4 8.5 - 10.3 mg/dL [facility] Bilirubin, total 0.3 0.1 - 1.2 mg/dL [facility] Protein, pl 6.5 6.5 - 8.5 g/dL [facility] Albumin 3.3(L) 3.5 - 5.0 g/dL [facility] Alk phos 85 40 - 130 Units/L [facility] ALT 21 7 - 45 Units/L [facility] AST 19 10 - 45 Units/L [facility] Blood 08/13/2024 5:44 AM COMPOUNDING SCALER 08/13/2024 6:05 AM COMPOUNDING SCALER us Anastasia Amaro MD LAB BLOOD ORDERABLES Final Result Performing Organization Address City/[facility] Co de Phone Number [facility] Department [place] [address] * GTT 50gm 1hr gestational screen (08/12/2024 11:29 AM COMPOUNDING SCALER) GTT 50g gest screen 106 <=140 mg/dL [...] on 2020. Blood 08/12/2024 11:2 9 AM COMPOUNDING SCALER 08/12/2024 11:41 AM COMPOUNDING SCALER us Anastasia Amaro MD LAB BLOOD ORDERABLES Final Result Performing Organization Address [facility] Co de Phone Number [facility] Department [place] [address] * Antibody identification (08/10/2024 7:02 AM COMPOUNDING SCALER) Pathologist [facility] Antibody ID 1 Passive Anti-D Blood 08/10/2024 7:02 AM COMPOUNDING SCALER 08/10/2024 7:02 AM COMPOUNDING SCALER us Anastasia Amaro MD LAB BLOOD BANK TEST ORDERA BLES Final Result Performing Organization Address [facility] Co de Phone Number [facility] Department [place] [address] * eGFR (08/10/2024 4:49 AM COMPOUNDING SCALER) Pathologist [facility] eGFR >90 >=60 mL/min/1. 73 m2 [...] last reviewed 2021. Blood 08/10/2024 4:49 AM COMPOUNDING SCALER 08/10/2024 5:31 AM COMPOUNDING SCALER us Anastasia Amaro MD LAB BLOOD ORDERABLES Final Result [facility] [place] [address] * (ABNORMAL) CBC without differential (08/10/2024 4:49 AM COMPOUNDING SCALER) Pathologist [facility] WBC 11.7(H) 3.8 - 9.9 K/cumm Hgb 11.7(L) 11.9 - 15.5 g/dL [facility] Hct 35.0(L) 35.6 - 45.5 % [facility] Plt 293 150 - 400 K/cumm [facility] MPV 10.5 9.1 - 12.3 fL [facility] RBC 4.00 3.90 - 5.20 M/cumm [facility] MCV 87.5 81.3 - 96.4 fL [facility] MCH 29.3 27.1 - 33.3 pg [facility] MCHC 33.4 32.3 - 35.7 g/dL [facility] RDW CV 13.7 11.1 - 14.9 % [facility] RDW SD 43.8 35.7 - 48.1 fL [facility] NRBC abs 0.00 0.00 - 0.01 K/cumm [facility] Blood 08/10/2024 4:49 AM COMPOUNDING SCALER 08/10/2024 5:42 AM COMPOUNDING SCALER Anastasia Amaro MD LAB BLOOD ORDERABLES Final Result Performing Organization Address City/[facility]/ZIP Co de Phone Number [facility] Department [place] [place] [address] * (ABNORMAL) Type and screen (08/10/2024 4:49 AM COMPOUNDING SCALER) [facility] Abiodun, indirect Positive(A) ABO Rh O Negative [facility] Blood 08/10/2024 4:49 AM COMPOUNDING SCALER 08/10/2024 6:04 AM COMPOUNDING SCALER Narrative [facility] - 08/10/2024 7:02 AM COMPOUNDING SCALER Has the patient had Daratumumab or Isatuximab in the past 6 months?->Unknown Anastasia Amaro MD LAB BLOOD BANK TEST ORDERA BLES Final Result Performing Organization Address City/[facility]/ZIP Co de Phone Number [facility] [place] [place] [address] * (ABNORMAL) Comprehensive metabolic panel (08/10/2024 4:49 AM COMPOUNDING SCALER) Pathologist [facility] Sodium 135 135 - 145 mmol/L Potassium, pl 3.5 3.3 - 4.9 mmol/L [facility] Chloride 102 97 - 110 mmol/L [facility] CO2 22 22 - 32 mmol/L [facility] Anion gap 11 2 - 15 mmol/L [facility] BUN 9 6 - 25 mg/dL [facility] Creatinine 0.51(L) 0.60 - 1.10 mg/dL [facility] Glucose 79 70 - 199 mg/dL [facility] Comment: Interpretive Data Fasting glucose >/= 126 [...] 2022. Calcium 9.2 8.5 - 10.3 mg/dL [facility] Bilirubin, total 0.2 0.1 - 1.2 mg/dL [facility] Protein, pl 6.6 6.5 - 8.5 g/dL [facility] Albumin 3.2(L) 3.5 - 5.0 g/dL [facility] Alk phos 85 40 - 130 Units/L [facility] ALT 22 7 - 45 Units/L [facility] AST 19 10 - 45 Units/L [facility] Blood 08/10/2024 4:49 AM COMPOUNDING SCALER 08/10/2024 5:31 AM COMPOUNDING SCALER us Anastasia Amaro MD LAB BLOOD ORDERABLES Final Result [facility] Department of Laboratories [place], [place] [id number] * US Ob 14 Weeks Or Over (08/09/2024 9:47 AM COMPOUNDING SCALER) Fetus# Fetus1 VIEWPOINT Placenta Details anterior VIEWPOINT Presentation Vertex; Maternal right- low VIEWPOINT Fetus# Fetus2 VIEWPOINT Placenta Details anterior VIEWPOINT Presentation Vertex; Maternal left- high VIEWPOINT Anatomical Region Laterality Modality Abdomen N/A Ultrasound 08/09/2024 9:50 AM COMPOUNDING SCALER Impressions 08/09/2024 11:52 AM COMPOUNDING SCALER 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 Chorionicity was not fully assessed but was previously determined to be monochorionic by the [facility] practice. Anatomic surveys were also completed [...] waspreviously determined to be monochorionic by the [facility] practice.Anatomic surveys were also completed there. [...] IMG OB US PROCEDURES Final Result * Hepatitis C antibody Blood (05/20/2024 2:47 PM CDT) Hep C Ab Nonreactive Nonreactive Comment: Interpretive [...] LAB MICROBIOLOGY - GENERAL ORDERABLES Final Result [facility] [address] Department [place] [address] from Last 3 Months or Most Recently Relevant to Health Maintenance Insurance [employer] [employer] [facility] [place] [address] [employer] [place] Advance Directives For more information, please contact: [phone] * Full Code (Latest Code Status on File) Date Activated Date Inactivated Comments 09/19/2024 4:34 PM 09/22/2024 3:32 PM * Full Code Date Activated Date Inactivated Comments 07/29/2024 3:05 AM 09/19/2024 4:34 PM Care Teams Vacation Planner Relationship Specialty Start Date End Date No, Physician PCP - General 02/25/24
--- OUTSIDE RECORDS SUMMARY | 2024-11-09 10:32 | XMS_ITS | Clinical Summary ---
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 difficile 10/20/2018 10/20/2018 Insurance [facility] MEDICAID
--- OUTSIDE RECORDS SUMMARY | 2024-11-09 10:32 | XMS_ITS | Encounter Summary ---
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 difficile 10/20/2018 10/20/2018 documented as of this encounter
--- OUTSIDE RECORDS SUMMARY | 2024-11-09 10:32 | XMS_ITS | Clinical Summary ---
Author Organization [facility] Address [address] [place] [address] Care Team Providers Care Oceanographer Geological Name Role Phone No, Physician Primary Care Provider [phone] Allergies No known active allergies Medications acetaminophen [...] Active sertraline (ZOLOFT) 50 mg tablet 10/25/19 25 Active no115/iron/fol ic acid ( ORAL) Take [...] Blood pressures well controlled on N120XL and X322MFP. CBC/CMP WNL, UPC 0.1. Enrolled in remote [...] # Disposition: Follow up task sent to [facility] scheduling pool for appointments in 2 and 6 weeks. They are enrolled in remote blood pressure monitoring for their BP check. Desires discharge home today. Service Coverage These phones are service phones and carried 27/04 in house: R1 (first call) [phone] R1 alt (second call) [phone] R4 (Chief) [phone] 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 08/29/2024 [...] Blood pressures well controlled on N120XL and S920VVT. Magnesium for seizure prophylaxis. #sinus tachycardia, intermittent: [...] found out that that would be in [place] he used an expletive to express that they would not be doing that Resolved Problems Problem Noted Date Diagnosed Date Resolved Date Abdominal pain 07/06/2012 04/15/2024 Encounters Date Type Department Care Team Description 11/04/2024 Telephone Psychiatry James Rojas MD Reminder of Appointment 11/03/2024 4:37 PM DIGITAL CARTOGRAPHIC TECHNICIAN - 11/03/2024 11:59 PM DIGITAL CARTOGRAPHIC TECHNICIAN Hospital Encounter [facility] [address] [place] [address] Encounter for routine follow-up Discharge Disposition: Discharge to home or self care 11/03/2024 1:40 PM DIGITAL CARTOGRAPHIC TECHNICIAN Office Visit [facility] Maternal- Medicine [address] [place] [address] Floor [address] [place] [phone] Encounter for routine follow-up (Primary Dx) 10/28/2024 [place] [phone] Nancy Noel, [facility] Brief Therapeutic Intervention 10/20/2024 1:00 PM DIGITAL CARTOGRAPHIC TECHNICIAN Office Visit [facility] Maternal- Medicine [address] [place] [address] Floor [address] [place] [phone] care following delivery (Primary Dx) 10/20/2024 Orders Only [facility] Maternal- Medicine [address] [place] [address] Floor [address] [place] [phone] Gracy Hicks, pilot captain care following delivery (Primary Dx); Preeclampsia, unspecified trimester 10/18/2024 1:00 PM DIGITAL CARTOGRAPHIC TECH[place] [address] Nancy Noel, MANAGER ICU Generalized anxiety disorder (Primary Dx) 10/16/2024 9:30 AM DIGITAL CARTOGRAPHIC TECHNICIAN - 10/16/2024 2:10 PM DIGITAL CARTOGRAPHIC TECHNICIAN Emergency [facility] Emergency Department [address] [place] [address] Santam Nair MD Secondary hypertension (Primary Dx) Discharge Disposition: Discharge to home or self care 10/07/2024 Telephone [facility] [place] [address] Nancy Noel, MANAGER ICU [facility] Initial Contact 09/30/2024 Encounter [facility] [address] [place] [address] 09/25/2024 Encounter [facility] [address] [place] [address] 09/19/2024 1:57 PM DIGITAL CARTOGRAPHIC TECHNICIAN Anesthesia Event [address] [address] Sidra Ann MD Bailey, Cody Allen, MD 09/19/2024 1:30 PM DIGITAL CARTOGRAPHIC TECHNICIAN - 09/19/2024 4:05 PM DIGITAL CARTOGRAPHIC TECHNICIAN Surgery [address] [address] Josefina Peter MD SECTION 09/15/2024 9:00 AM DIGITAL CARTOGRAPHIC TECHNICIAN Ancillary Procedure [address] [address] 09/08/2024 10:00 AM DIGITAL CARTOGRAPHIC TECHNICIAN Ancillary Procedure [address] [address] 08/24/2024 12:30 PM DIGITAL CARTOGRAPHIC TECHNICIAN Ancillary Procedure [address] [address] 08/16/2024 8:15 AM DIGITAL CARTOGRAPHIC TECHNICIAN Ancillary Procedure [address] [address] 08/09/2024 9:30 AM DIGITAL CARTOGRAPHIC TECHNICIAN Ancillary Procedure [address] [address] 07/29/2024 2:42 AM CDT - 09/22/2024 11:26 AM DIGITAL CARTOGRAPHIC TECHNICIAN Hospital Encounter [facility] [address] [place] [address] Anastasia Amaro MD Bligard, MD Sumanth Fitzgerald, MD Albertina Tinoco, Sara Olsen MD Preeclampsia, unspecified trimester (Primary Dx); Twin , unable to determine number of placenta and number of amniotic sacs, antepartum, unspecified trimester [O30.099]; 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 Discharge Disposition: Discharge to home or self care from Last 3 Months Immunizations Name Administration [...] Grandmother Cancer Neg Hx no 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 Never 07/29/2024 Do you belong to [...] staff should administer the PHQ-9) 0 07/28/2024 [facility] - [...] things needed for daily living? No 07/29/2024 [place] Depression Scale Answer Date Recorded [place] Depression Scale Total 21 10/20/2024 The thought [...] any time in the past 12 m [facility], were you homeless or living [...] on file Legal Sex Female 2:19 AM DIGITAL CARTOGRAPHIC TECHNICIAN Gender Identity Not on file Sexual [...] /Epidu ral N Livin g 9 9 Regino T Masood Lea MD Complications:None Delivery Location:[facility] Main C ampus ([facility] L AND D PROCEDURE) 2023 34w 0d 0h 03m 0h 03m 1.92 kg (4 lb 3.7 oz) M C-Sec tion Combin ed Spinal /Epidu ral N Livin g 8 9 Morales J Masood Lea MD Complications:None Delivery Location:[facility] Main C ampus ([facility] L AND D PROCEDURE) Last Filed Vital Signs Vital Sign Reading Time Taken Comments Blood Pressure 120/81 11/03/2024 1:53 PM DIGITAL CARTOGRAPHIC TECHNICIAN Pulse 116 11/03/2024 1:53 PM DIGITAL CARTOGRAPHIC TECHNICIAN Temperature 35.9 ??C (96.7 ??F) 10/16/2024 9:28 AM CS T Respiratory Rate 18 10/16/2024 11:0 0 AM DIGITAL CARTOGRAPHIC TECHNICIAN Oxygen Saturation 97% 11/03/2024 1:53 PM DIGITAL CARTOGRAPHIC TECHNICIAN Inhaled Oxygen Concentration - - Weight 111.5 kg (245 lb 12.8 oz) 11/03/2024 1:53 PM DIGITAL CARTOGRAPHIC TECHNICIAN Height 167.6 cm (5' 6 ) 10/16/2024 9:28 AM DIGITAL CARTOGRAPHIC TECHNICIAN Body Mass Index 39.67 10/16/2024 9:28 AM DIGITAL CARTOGRAPHIC TECHNICIAN Plan of Treatment Health Maintenance Due Date Last Done Comments Cervical Cancer Screening 1997 Regular Well Visit/Exam 18-64 2015 Covid-19 Vaccine ( season) 2024 01/04/2021, 12/07/2020 Depression Screening 10/20/2025 10/20/2024, 07/28/2024, 05/18/2024 DTaP/Tdap/Td Vaccine (9 - Td or [...] PROCESSING (MOLECULAR COMPONENT) Routine 11/03/2024 4:37 PM DIGITAL CARTOGRAPHIC TECHNICIAN Encounter for routine follow-up URINALYSIS, MICROSCOPIC ONLY STAT 10/16/2024 11:21 AM DIGITAL CARTOGRAPHIC TECHNICIAN URINE CULTURE STAT 10/16/2024 11:21 AM DIGITAL CARTOGRAPHIC TECHNICIAN URINALYSIS AND REFLEX TO MICROSCOPIC AND CULTURE STAT 10/16/2024 11:21 AM DIGITAL CARTOGRAPHIC TECHNICIAN ECG 12-LEAD STAT 10/16/2024 10:36 AM DIGITAL CARTOGRAPHIC TECHNICIAN EGFR Add On 10/16/2024 9:47 AM DIGITAL CARTOGRAPHIC TECHNICIAN DIFFERENTIAL AUTO Add On 10/16/2024 9:4 7 AM DIGITAL CARTOGRAPHIC TECHNICIAN COMPREHENSIVE METABOLIC PANEL Add-On 10/16/2024 9:47 AM DIGITAL CARTOGRAPHIC TECHNICIAN CBC WITH AUTO DIFFERENTIAL Add-On 10/16/2024 9:47 AM DIGITAL CARTOGRAPHIC TECHNICIAN BLEED SCREEN Timed 09/20/2024 4: 48 AM DIGITAL CARTOGRAPHIC TECHNICIAN ABO/RH Timed 09/20/2024 4:48 AM DIGITAL CARTOGRAPHIC TECHNICIAN CBC WITHOUT DIFFERENTIAL Routine 09/20/2024 4:48 AM DIGITAL CARTOGRAPHIC TECHNICIAN RH IMMUNE GLOBULIN EVAL Timed 09/20/2024 4:48 AM DIGITAL CARTOGRAPHIC TECHNICIAN SURGICAL PATHOLOGY Routine 09/19/2024 4: 06 PM DIGITAL CARTOGRAPHIC TECHNICIAN ANESTHESIA EPIDURAL BLOCK Routine 09/19/2024 2:45 PM DIGITAL CARTOGRAPHIC TECHNICIAN SECTION 09/19/2024 1:56 PM DIGITAL CARTOGRAPHIC TECHNICIAN TIUP Case Notes PreE w/ SF and Multiple gestation EGFR Timed 09/18/2024 6:21 AM DIGITAL CARTOGRAPHIC TECHNICIAN COMPREHENSIVE METABOLIC PANEL Timed 09/18/2024 6:21 AM DIGITAL CARTOGRAPHIC TECHNICIAN CBC WITHOUT DIFFERENTIAL Timed 09/18/2024 6:21 AM DIGITAL CARTOGRAPHIC TECHNICIAN TYPE AND SCREEN Timed 09/18/2024 6:21 AM DIGITAL CARTOGRAPHIC TECHNICIAN NONSTRESS TEST Routine 09/17/2024 2:58 PM DIGITAL CARTOGRAPHIC TECHNICIAN Preeclampsia, unspecified trimester 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 US OB FOLLOW UP IP Routine 09/15/2024 1:08 PM DIGITAL CARTOGRAPHIC TECHNICIAN EGFR Timed 09/15/2024 6:17 AM DIGITAL CARTOGRAPHIC TECHNICIAN COMPREHENSIVE METABOLIC PANEL Timed 09/15/2024 6:17 AM DIGITAL CARTOGRAPHIC TECHNICIAN CBC WITHOUT DIFFERENTIAL Timed 09/15/2024 6:17 AM DIGITAL CARTOGRAPHIC TECHNICIAN TYPE AND SCREEN Timed 09/15/2024 6:17 AM DIGITAL CARTOGRAPHIC TECHNICIAN NONSTRESS TEST Routine 09/13/2024 5:10 PM DIGITAL CARTOGRAPHIC TECHNICIAN Preeclampsia, unspecified trimester 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 EGFR Timed 09/12/2024 6:35 AM DIGITAL CARTOGRAPHIC TECHNICIAN COMPREHENSIVE METABOLIC PANEL Timed 09/12/2024 6:35 AM DIGITAL CARTOGRAPHIC TECHNICIAN CBC WITHOUT DIFFERENTIAL Timed 09/12/2024 6:35 AM DIGITAL CARTOGRAPHIC TECHNICIAN TYPE AND SCREEN Timed 09/12/2024 6:35 AM DIGITAL CARTOGRAPHIC TECHNICIAN EGFR Timed 09/09/2024 6:24 AM DIGITAL CARTOGRAPHIC TECHNICIAN COMPREHENSIVE METABOLIC PANEL Timed 09/09/2024 6:24 AM DIGITAL CARTOGRAPHIC TECHNICIAN CBC WITHOUT DIFFERENTIAL Timed 09/09/2024 6:24 AM DIGITAL CARTOGRAPHIC TECHNICIAN TYPE AND SCREEN Timed 09/09/2024 6:24 AM DIGITAL CARTOGRAPHIC TECHNICIAN US OB LIMITED IP Routine 09/08/2024 10:29 AM DIGITAL CARTOGRAPHIC TECHNICIAN NONSTRESS TEST Routine 09/06/2024 8:38 PM DIGITAL CARTOGRAPHIC TECHNICIAN Preeclampsia, unspecified trimester 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 EGFR Timed 09/06/2024 4:31 AM DIGITAL CARTOGRAPHIC TECHNICIAN COMPREHENSIVE METABOLIC PANEL Timed 09/06/2024 4:31 AM DIGITAL CARTOGRAPHIC TECHNICIAN CBC WITHOUT DIFFERENTIAL Timed 09/06/2024 4:31 AM DIGITAL CARTOGRAPHIC TECHNICIAN TYPE AND SCREEN Timed 09/06/2024 4:31 AM DIGITAL CARTOGRAPHIC TECHNICIAN GROUP B STREPTOCOCCUS CULTURE Routine 09/03/2024 10:29 AM DIGITAL CARTOGRAPHIC TECHNICIAN EGFR Timed 09/03/2024 5:26 AM DIGITAL CARTOGRAPHIC TECHNICIAN COMPREHENSIVE METABOLIC PANEL Timed 09/03/2024 5:26 AM DIGITAL CARTOGRAPHIC TECHNICIAN CBC WITHOUT DIFFERENTIAL Timed 09/03/2024 5:26 AM DIGITAL CARTOGRAPHIC TECHNICIAN TYPE AND SCREEN Timed 09/03/2024 5:26 AM DIGITAL CARTOGRAPHIC TECHNICIAN ECG 12-LEAD Routine 09/02/2024 4:33 PM DIGITAL CARTOGRAPHIC TECHNICIAN EGFR Timed 08/31/2024 6:20 AM DIGITAL CARTOGRAPHIC TECHNICIAN COMPREHENSIVE METABOLIC PANEL Timed 08/31/2024 6:20 AM DIGITAL CARTOGRAPHIC TECHNICIAN CBC WITHOUT DIFFERENTIAL Timed 08/31/2024 6:20 AM DIGITAL CARTOGRAPHIC TECHNICIAN TYPE AND SCREEN Timed 08/31/2024 6:20 AM DIGITAL CARTOGRAPHIC TECHNICIAN NONSTRESS TEST Routine 08/29/2024 2:32 PM DIGITAL CARTOGRAPHIC TECHNICIAN Preeclampsia, unspecified trimester 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 NONSTRESS TEST Routine 08/28/2024 7:47 PM DIGITAL CARTOGRAPHIC TECHNICIAN Preeclampsia, unspecified trimester 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 EGFR Timed 08/28/2024 6:00 AM DIGITAL CARTOGRAPHIC TECHNICIAN COMPREHENSIVE METABOLIC PANEL Timed 08/28/2024 6:00 AM DIGITAL CARTOGRAPHIC TECHNICIAN CBC WITHOUT DIFFERENTIAL Timed 08/28/2024 6:00 AM DIGITAL CARTOGRAPHIC TECHNICIAN TYPE AND SCREEN Timed 08/28/2024 6:00 AM DIGITAL CARTOGRAPHIC TECHNICIAN EGFR Timed 08/25/2024 6:19 AM DIGITAL CARTOGRAPHIC TECHNICIAN COMPREHENSIVE METABOLIC PANEL Timed 08/25/2024 6:19 AM DIGITAL CARTOGRAPHIC TECHNICIAN CBC WITHOUT DIFFERENTIAL Timed 08/25/2024 6:19 AM DIGITAL CARTOGRAPHIC TECHNICIAN TYPE AND SCREEN Timed 08/25/2024 6:19 AM DIGITAL CARTOGRAPHIC TECHNICIAN US OB FOLLOW UP IP Routine 08/24/2024 9:37 AM DIGITAL CARTOGRAPHIC TECHNICIAN EGFR Timed 08/22/2024 6:02 AM DIGITAL CARTOGRAPHIC TECHNICIAN COMPREHENSIVE METABOLIC PANEL Timed 08/22/2024 6:02 AM DIGITAL CARTOGRAPHIC TECHNICIAN CBC WITHOUT DIFFERENTIAL Timed 08/22/2024 6:02 AM DIGITAL CARTOGRAPHIC TECHNICIAN TYPE AND SCREEN Timed 08/22/2024 6:02 AM DIGITAL CARTOGRAPHIC TECHNICIAN EGFR Timed 08/19/2024 6:25 AM DIGITAL CARTOGRAPHIC TECHNICIAN COMPREHENSIVE METABOLIC PANEL Timed 08/19/2024 6:25 AM DIGITAL CARTOGRAPHIC TECHNICIAN CBC WITHOUT DIFFERENTIAL Timed 08/19/2024 6:25 AM DIGITAL CARTOGRAPHIC TECHNICIAN TYPE AND SCREEN Timed 08/19/2024 6:25 AM DIGITAL CARTOGRAPHIC TECHNICIAN US OB LIMITED IP Routine 08/16/2024 8:35 AM DIGITAL CARTOGRAPHIC TECHNICIAN ANTIBODY IDENTIFICATION Routine 08/16/2024 7:34 AM DIGITAL CARTOGRAPHIC TECHNICIAN EGFR Timed 08/16/2024 6:15 AM DIGITAL CARTOGRAPHIC TECHNICIAN THYROID FUNCTION CASCADE Routine 08/16/2024 6:15 AM DIGITAL CARTOGRAPHIC TECHNICIAN COMPREHENSIVE METABOLIC PANEL Timed 08/16/2024 6:15 AM DIGITAL CARTOGRAPHIC TECHNICIAN CBC WITHOUT DIFFERENTIAL Timed 08/16/2024 6:15 AM DIGITAL CARTOGRAPHIC TECHNICIAN TYPE AND SCREEN Timed 08/16/2024 6:15 AM DIGITAL CARTOGRAPHIC TECHNICIAN POCT GLUCOSE DEVICE Routine 08/14/2024 3 :06 PM DIGITAL CARTOGRAPHIC TECHNICIAN ECG 12-LEAD Routine 08/13/2024 9:02 AM DIGITAL CARTOGRAPHIC TECHNICIAN ANTIBODY IDENTIFICATION Routine 08/13/2024 7:42 AM DIGITAL CARTOGRAPHIC TECHNICIAN EGFR Timed 08/13/2024 5:44 AM DIGITAL CARTOGRAPHIC TECHNICIAN COMPREHENSIVE METABOLIC PANEL Timed 08/13/2024 5:44 AM DIGITAL CARTOGRAPHIC TECHNICIAN CBC WITHOUT DIFFERENTIAL Timed 08/13/2024 5:44 AM DIGITAL CARTOGRAPHIC TECHNICIAN TYPE AND SCREEN Timed 08/13/2024 5:44 AM DIGITAL CARTOGRAPHIC TECHNICIAN RPR Routine 08/13/2024 5:44 AM DIGITAL CARTOGRAPHIC TECHNICIAN HIV 1/2 ANTIBODY PLUS P24 ANTIGEN Routine 08/13/2024 5:44 AM DIGITAL CARTOGRAPHIC TECHNICIAN GTT 50GM 1HR GESTATIONAL SCREEN Timed 08/12/2024 11:29 AM DIGITAL CARTOGRAPHIC TECHNICIAN ANTIBODY IDENTIFICATION Routine 08/10/2024 7:02 AM DIGITAL CARTOGRAPHIC TECHNICIAN EGFR Timed 08/10/2024 4:49 AM DIGITAL CARTOGRAPHIC TECHNICIAN COMPREHENSIVE METABOLIC PANEL Timed 08/10/2024 4:49 AM DIGITAL CARTOGRAPHIC TECHNICIAN CBC WITHOUT DIFFERENTIAL Timed 08/10/2024 4:49 AM DIGITAL CARTOGRAPHIC TECHNICIAN TYPE AND SCREEN Timed 08/10/2024 4:49 AM DIGITAL CARTOGRAPHIC TECHNICIAN US OB 14 WEEKS OR OVER IP Routine 08/09/2024 9:47 AM DIGITAL CARTOGRAPHIC TECHNICIAN HEPATITIS C ANTIBODY Routine 05/20/2024 2:47 PM CDT Encounter for supervision of normal first in first trimester 11 weeks gestation of from Last 3 Months or Most Recently Relevant to Health Maintenance Results * ThinPrep processing (Molecular component) (11/03/2024 4:37 PM DIGITAL CARTOGRAPHIC TECHNICIAN) Pathologist [facility] ThinPrep processing (Molecular component) Specimen received for processing. [facility] Endocervical 11/03/2024 4:37 PM DIGITAL CARTOGRAPHIC TECHNICIAN 11/07/2024 8:41 AM DIGITAL CARTOGRAPHIC TECHNICIAN us Jada Ngo NP LAB BODY FLUIDS AND STOOLS ORDERABLES Final Result BIA [facility] [place] [address] [facility] * (ABNORMAL) Urinalysis reflex to microscopic and culture Urine (10/16/2024 11:21 AM DIGITAL CARTOGRAPHIC TECHNICIAN) Color, ur Yellow Yellow Clarity, ur Clear Clear BIA [facility] ([place]) Specific gravity, ur 1.020 1.003 - 1.030 [...] uric acid stone formation. Source: [facility] [employer] Current Interpretive Data was last revised on [...] [facility] ([place]) Urine 10/16/2024 11:2 1 AM DIGITAL CARTOGRAPHIC TECHNICIAN 10/16/2024 11:23 AM DIGITAL CARTOGRAPHIC TECHNICIAN us Satnam Nair MD LAB MICROBIOLOGY - GENERAL O RDERABLES Final Result [facility] ([place]) 1 [facility] Department [place] [address] * (ABNORMAL) Urinalysis, microscopic only (10/16/2024 11:21 AM DIGITAL CARTOGRAPHIC TECHNICIAN) WBC, ur 11-20(A) 0 - 5 /HPF RBC, ur >50(A) 0 - 2 /HPF [facility] ([place]) Epithelial cells, squamous, ur 1-5 0 - 5 /HPF [facility] ([place]) Bacteria, ur Trace(A) [facility] ([place]) Mucous, ur Present(A) [facility] ([place]) Culture Reflex Comment Reflex to urine culture will be performed. [facility] ([place]) Urine 10/16/2024 11:2 1 AM DIGITAL CARTOGRAPHIC TECHNICIAN 10/16/2024 11:23 AM DIGITAL CARTOGRAPHIC TECHNICIAN Satnam Nair MD LAB URINE ORDERABLES Final R esult Performing Organization Address [facility] Co de Phone Number BIA [facility] ([place]) 1 [facility] [place] [address] * Urine culture Urine (10/16/2024 11:21 AM DIGITAL CARTOGRAPHIC TECHNICIAN) Report Final Report: Less than 100,000 colonies/mL (clinically insignificant growth based on current clinical standards) Comment:Testing performed by : [facility], [address] [facility] [place] [address] Organism (CLINICALLY INSIGNIFICANT GROWTH [facility] ([place]) Urine 10/16/2024 11:2 1 AM DIGITAL CARTOGRAPHIC TECHNICIAN 10/16/2024 2:00 PM DIGITAL CARTOGRAPHIC TECHNICIAN Narrative [facility] ([place]) - 10/17/2024 3:36 PM DIGITAL CARTOGRAPHIC TECHNICIAN Urine culture reflexed based upon urinalysis results. Testing performed by [facility] Microbiology Laboratory ([phone]) Satnam Nair MD LAB MICROBIOLOGY - GENERAL O RDERABLES Final Result Performing Organization Address [facility] Co de Phone Number BIA DonaldLOOMIS) 1 [facility] [place] [address] * ECG 12 lead (10/16/2024 10:36 AM DIGITAL CARTOGRAPHIC TECHNICIAN) 10/16/2024 10:3 6 AM DIGITAL CARTOGRAPHIC TECHNICIAN Narrative [facility] - 10/17/2024 8:41 AM DIGITAL CARTOGRAPHIC TECHNICIAN Vent Rate: 65 bpm RR Interval: 922 msec DE Interval: 147 msec QRS Duration: 101 msec QT Interval: 408 msec QTC Interval: 419 msec P-R-T [place]: 54 - 21 - 47 degrees IMPRESSION: SINUS RHYTHM NORMAL ECG Electronically Signed By: Dallas Ahn MD Satnam Nair MD ECG ORDERABLES Final Result [facility] * eGFR (10/16/2024 9:47 AM DIGITAL CARTOGRAPHIC TECHNICIAN) eGFR >90 >=60 mL/min/1. 73 m2 Comment: [...] last reviewed 2021. Blood 10/16/2024 9:47 AM DIGITAL CARTOGRAPHIC TECHNICIAN 10/16/2024 10:32 AM DIGITAL CARTOGRAPHIC TECHNICIAN Satnam Nair MD LAB BLOOD ORDERABLES Final R esult [facility] ([place]) [address] [facility] Department [place] [address] * Differential, auto (10/16/2024 9:47 AM DIGITAL CARTOGRAPHIC TECHNICIAN) Neutrophil abs 2.8 1.5 - 6.5 K/cumm Imm gran abs 0.0 0.0 - 0.1 K/cumm [facility] ([place]) Lymphocyte abs 1.3 0.8 - 3.3 K/cumm [facility] ([place]) Monocyte abs 0.3 0.2 - 0.8 K/cumm [facility] ([place]) Eosinophil abs 0.1 0.0 - 0.5 K/cumm [facility] ([place]) Basophil abs 0.0 0.0 - 0.1 K/cumm [facility] ([place]) Neutrophil pct 61.2 % [facility] ([place]) Comment: Interpretive [...] revised on 2018. Monocyte pct 7.5 % [facility] ([place]) Comment: Interpretive Data [...] revised on 2018. Basophil pct 0.4 % [facility] ([place]) Comment: Interpretive Data Percent cell count reference ranges are not reported, since discordance with absolute values may lead to misinterpretation of CBC data. Current Interpretive Data was last revised on 2018. Blood 10/16/2024 9:47 AM DIGITAL CARTOGRAPHIC TECHNICIAN 10/16/2024 10:32 AM DIGITAL CARTOGRAPHIC TECHNICIAN Satnam Nair MD LAB BLOOD ORDERABLES Final R esult [facility] ([place]) 1 [facility] [place] [address] * CBC with auto differential (10/16/2024 9:47 AM DIGITAL CARTOGRAPHIC TECHNICIAN) WBC 4.5 3.8 - 9.9 K/cumm Hgb 12.4 11.9 - 15.5 g/dL [facility] ([place]) Hct 38.1 35.6 - 45.5 % [facility] ([place]) Plt 324 150 - 400 K/cumm [...] - 0.01 K/cumm [facility] ([place]) Blood 10/16/2024 9:47 AM DIGITAL CARTOGRAPHIC TECHNICIAN 10/16/2024 10:32 AM DIGITAL CARTOGRAPHIC TECHNICIAN Satnam Nair MD LAB BLOOD ORDERABLES Final R esult [facility] ([place]) 1 [facility] [employer] [place] [address] * Comprehensive metabolic panel (10/16/2024 9:47 AM DIGITAL CARTOGRAPHIC TECHNICIAN) Sodium 140 135 - 145 mmol/L Potassium, pl 3.6 3.3 - 4.9 mmol/L [facility] ([place]) Chloride 105 97 - 110 mmol/L [facility] ([place]) CO2 23 22 - 32 mmol/L [facility] ([place]) Anion gap 12 2 - 15 mmol/L [facility] ([place]) BUN 9 6 - 25 mg/dL [facility] ([place]) Creatinine 0.73 0.60 - 1.10 [...] 2022. Calcium 9.7 8.5 - 10.3 mg/dL [facility] ([place]) Bilirubin, total 0.7 0.1 - 1.2 mg/dL [facility] ([place]) Protein, pl 7.3 6.5 - 8.5 g/dL [facility] ([place]) Albumin 4.4 3.5 - 5.0 g/dL [facility] ([place]) Alk phos 57 40 - 130 Units/L [facility] ([place]) ALT 8 7 - 45 Units/L [facility] ([place]) AST 10 10 - 45 Units/L [facility] ([place]) Blood 10/16/2024 9:47 AM DIGITAL CARTOGRAPHIC TECHNICIAN 10/16/2024 10:32 AM DIGITAL CARTOGRAPHIC TECHNICIAN us Satnam Nair MD LAB BLOOD ORDERABLES Final R esult [facility] ([place]) 1 [facility] Department [place] [address] * Rh Immune Globulin Eval (09/20/2024 4:48 AM DIGITAL CARTOGRAPHIC TECHNICIAN) RhIg Administration 1 vial of Rh Immune Globulin (300 mcg dose) RhIg Eligible Yes, eligible [facility] Blood 09/20/2024 4:48 AM DIGITAL CARTOGRAPHIC TECHNICIAN 09/20/2024 5:03 AM DIGITAL CARTOGRAPHIC TECHNICIAN Narrative [facility] - 09/20/2024 5:36 AM DIGITAL CARTOGRAPHIC TECHNICIAN Number of weeks ?->20 weeks or greater antibody screen result:->Negative Rhogam given?->Given Date Given?->08/01/24 Number of vials requested:->1 Sara Eng MD LAB BLOOD BANK TEST ORDERABL ES Final Result Performing Organization Address [facility] Co de Phone Number [facility] [employer] [place] [place] [address] * Bleed Screen (09/20/2024 4:48 AM DIGITAL CARTOGRAPHIC TECHNICIAN) Bleed Screen Negative Blood 09/20/2024 4:48 AM DIGITAL CARTOGRAPHIC TECHNICIAN 09/20/2024 5:03 AM DIGITAL CARTOGRAPHIC TECHNICIAN Rey Quinonez MD LAB BLOOD BANK TEST ORDERABLE S Final Result Performing Organization Address [facility] Co de Phone Number [facility] [place] [address] * ABO/Rh (09/20/2024 4:48 AM DIGITAL CARTOGRAPHIC TECHNICIAN) ABO Rh O Negative Blood 09/20/2024 4:48 AM DIGITAL CARTOGRAPHIC TECHNICIAN 09/20/2024 5:03 AM DIGITAL CARTOGRAPHIC TECHNICIAN Rey Quinonez MD LAB BLOOD BANK TEST ORDERABLE S Final Result Performing Organization Address [facility] Co de Phone Number [facility] [place] [employer] [place] [place] [address] * (ABNORMAL) CBC without differential (09/20/2024 4:48 AM DIGITAL CARTOGRAPHIC TECHNICIAN) WBC 10.3(H) 3.8 - 9.9 K/cumm Hgb 9.7(L) 11.9 - 15.5 g/dL [facility] Hct 28.4(L) 35.6 - 45.5 % [facility] Plt 230 150 - 400 K/cumm [facility] MPV 10.8 9.1 - 12.3 fL [facility] RBC 3.22(L) 3.90 - 5.20 M/cumm [facility] MCV 88.2 81.3 - 96.4 fL [facility] [facility] MCH 30.1 27.1 - 33.3 pg [facility] MCHC 34.2 32.3 - 35.7 g/dL [facility] RDW CV 13.9 11.1 - 14.9 % [facility] RDW SD 44.6 35.7 - 48.1 fL [facility] NRBC abs 0.00 0.00 - 0.01 K/cumm [facility] Blood 09/20/2024 4:48 AM DIGITAL CARTOGRAPHIC TECHNICIAN 09/20/2024 5:11 AM DIGITAL CARTOGRAPHIC TECHNICIAN us Sara Eng MD LAB BLOOD ORDERABLES Final R esult [facility] [place] [address] * Surgical pathology (09/19/2024 4:06 PM DIGITAL CARTOGRAPHIC TECHNICIAN) Tissue (Placenta) 09/19/2024 4:06 PM DIGITAL CARTOGRAPHIC TECHNICIAN 09/20/2024 8:37 AM DIGITAL CARTOGRAPHIC TECHNICIAN Narrative PATHOLOGY [facility] - 09/26/2024 2:16 PM DIGITAL CARTOGRAPHIC TECHNICIAN EPIC results best viewed via link to PDF [facility] Nicole Brown Laboratory [place] [address] Note to Patients: This report may contain [...] : ??1995 (Age: 29) Address: ??[address] [place] [address] ??[id number] Hospital #: ??[id number] Taken:09/19/2024 Received:09/20/2024 Reported: 09/26/2024 Patient Type: [facility] Inpatient ?? Service: Obstetrics Location: [facility] ??6800 Physician(s): ??MD Sara Parker M.D. Diagnosis: ??Placenta, delivery - 662 grams diamnionic, monochorionic, pre-term twin placenta - Acute atherosis - Accelerated villous maturation -Trivascular cords with no histopathologic abnormalities [facility]/09/26/2024 14:16 By this signature, I attest [...] discrete lesions or infarcts are grossly identified. ??Inter Com Servicer sections are submitted: ??A1 = arbitrarily assigned twin A, cord and membranes; A2-4 = twin A, medical center representative parenchyma; A5 = common membrane and T- zone; A6 = arbitrarily assigned twin B, cord and membranes; A7-9 = twin B, medical center representative parenchyma. ??Jar 3. ? sxv/09/21/2024 11:11 PA(s): Catalino Hernandez MS, FREDRICK ([facility])CM By this signature, I attest that the above diagnosis is based upon my personal examination of the slides(and/or other material). Addenda/Procedures The performance characteristics of some immunohistochemical stains, fluorescence in-situ hybridization tests and immunophenotyping by flow cytometry cited in this report (if any) were determined by the Surgical Pathology and Flow Cytometry Departments at [facility] as part of an ongoing supplier quality manager program and in compliance with federally [...] Surgical Pathology and Flow Cytometry Departments of [facility]. ??It has not been cleared or approved by the U. S. Food and Drug Administration. IMAGES AND SCANNED DOCUMENTS, IF INCLUDED, ONLY VIEWABLE IN PDF VERSION OF REPORT us Sara Eng MD LAB PATHOLOGY ORDERABLES Fin al Result PATHOLOGY [facility] 3rd Floor [place], [place] [phone] * Epidural Block (09/19/2024 2:45 PM DIGITAL CARTOGRAPHIC TECHNICIAN) Narrative Abena Denton MD - 09/19/2024 2:45 PM DIGITAL CARTOGRAPHIC TECHNICIAN Abena Denton MD ? 09/19/2024 ??2:50 PM [...] Final Result * eGFR (09/18/2024 6:21 AM DIGITAL CARTOGRAPHIC TECHNICIAN) eGFR >90 >=60 mL/min/1. 73 m2 Comment: [...] last reviewed 2021. Blood 09/18/2024 6:21 AM DIGITAL CARTOGRAPHIC TECHNICIAN 09/18/2024 6:32 AM DIGITAL CARTOGRAPHIC TECHNICIAN us Anastasia Amaro MD LAB BLOOD ORDERABLES Final Result [facility] One [facility] [place] [address] * (ABNORMAL) CBC without differential (09/18/2024 6:21 AM DIGITAL CARTOGRAPHIC TECHNICIAN) WBC 10.0(H) 3.8 - 9.9 K/cumm Hgb 11.6(L) 11.9 - 15.5 g/dL [facility] Hct 34.0(L) 35.6 - 45.5 % [facility] Plt 250 150 - 400 K/cumm [facility] MPV 11.0 9.1 - 12.3 fL [facility] RBC 3.92 3.90 - 5.20 M/cumm [facility] MCV 86.7 81.3 - 96.4 fL [facility] MCH 29.6 27.1 - 33.3 pg [facility] MCHC 34.1 32.3 - 35.7 g/dL [facility] RDW CV 13.7 11.1 - 14.9 % [facility] RDW SD 43.1 35.7 - 48.1 fL [facility] NRBC abs 0.00 0.00 - 0.01 K/cumm [facility] Blood 09/18/2024 6:21 AM DIGITAL CARTOGRAPHIC TECHNICIAN 09/18/2024 6:32 AM DIGITAL CARTOGRAPHIC TECHNICIAN Anastasia Amaro MD LAB BLOOD ORDERABLES Final Result Performing Organization Address City/[facility] Co de Phone Number [facility] [place] [address] * Type and screen (09/18/2024 6:21 AM DIGITAL CARTOGRAPHIC TECHNICIAN) [facility] Abiodun, indirect Negative ABO Rh O Negative [facility] Blood 09/18/2024 6:21 AM DIGITAL CARTOGRAPHIC TECHNICIAN 09/18/2024 6:35 AM DIGITAL CARTOGRAPHIC TECHNICIAN Narrative [facility] - 09/18/2024 7:42 AM DIGITAL CARTOGRAPHIC TECHNICIAN Has the patient had Daratumumab or Isatuximab in the past 6 months?->Unknown Anastasia Amaro MD LAB BLOOD BANK TEST ORDERA BLES Final Result Performing Organization Address [facility] de Phone Number [facility] [place] [address] * (ABNORMAL) Comprehensive metabolic panel (09/18/2024 6:21 AM DIGITAL CARTOGRAPHIC TECHNICIAN) [facility] Sodium 134(L) 135 - 145 mmol/L Potassium, pl 3.8 3.3 - 4.9 mmol/L [facility] Chloride 105 97 - 110 mmol/L [facility] CO2 23 22 - 32 mmol/L [facility] Anion gap 6 2 - 15 mmol/L [facility] BUN 9 6 - 25 mg/dL [facility] Creatinine 0.69 0.60 - 1.10 mg/dL [facility] Glucose 68(L) 70 - 199 mg/dL [facility] Comment: Interpretive Data Fasting glucose >/= [...] Calcium 9.0 8.5 - 10.3 mg/dL [facility] Bilirubin, total 0.2 0.1 - 1.2 mg/dL [facility] Protein, pl 6.3(L) 6.5 - 8.5 g/dL [facility] Albumin 3.0(L) 3.5 - 5.0 g/dL [facility] Alk phos 125 40 - 130 Units/L [facility] ALT 14 7 - 45 Units/L [facility] AST 16 10 - 45 Units/[facility] Blood 09/18/2024 6:21 AM DIGITAL CARTOGRAPHIC TECHNICIAN 09/18/2024 6:32 AM DIGITAL CARTOGRAPHIC TECHNICIAN us Anastasia Amaro MD LAB BLOOD ORDERABLES Final Result [facility] One [facility] [place] [address] * nonstress test (09/17/2024 2:58 PM DIGITAL CARTOGRAPHIC TECHNICIAN) Narrative Sandra Christy MD - 09/17/2024 2:58 PM DIGITAL CARTOGRAPHIC TECHNICIAN Joellen Schilling MD ? 09/17/2024 ??4:04 PM nonstress test Date/Time: 09/17/2024 2:58 PM Performed by: Maureen Calix MD Authorized by: Ana M Rogers MD ?? us Ana M Rogers MD OB GYNE ORDERABLES Fi nal Result * US Ob Follow Up (09/15/2024 1:08 PM DIGITAL CARTOGRAPHIC TECHNICIAN) Fetus# Fetus1 VIEWPOINT Estimated Weight 1,709 g&grams VIEWPOINT Placenta Details anterior VIEWPOINT Presentation Vertex; Maternal right- low VIEWPOINT Fetus# Fetus2 VIEWPOINT Estimated Weight 2,585 g&grams VIEWPOINT Placenta Details anterior VIEWPOINT Presentation Vertex; Maternal left- high VIEWPOINT Anatomical Region Laterality Modality Abdomen N/A Ultrasound 09/15/2024 1:08 PM DIGITAL CARTOGRAPHIC TECHNICIAN Impressions 09/15/2024 2:24 PM DIGITAL CARTOGRAPHIC TECHNICIAN Diamniotic (presumed MCDA) TIUP at 33w33d who is admitted for preE with severe features who presents for growth US [facility]. A thin dividing membrane and single [...] previously determined to be [facility]och[facility]ionic by [facility]. A thin dividing membrane and single [...] R esult * eGFR (09/15/2024 6:17 AM DIGITAL CARTOGRAPHIC TECHNICIAN) [facility] eGFR >90 >=60 mL/min/1. 73 m2 [...] last reviewed 2021. Blood 09/15/2024 6:17 AM DIGITAL CARTOGRAPHIC TECHNICIAN 09/15/2024 6:31 AM DIGITAL CARTOGRAPHIC TECHNICIAN Anastasia Amaro MD LAB BLOOD ORDERABLES Final Result [facility] One [facility] [place] [address] * (ABNORMAL) CBC without differential (09/15/2024 6:17 AM DIGITAL CARTOGRAPHIC TECHNICIAN) WBC 10.1(H) 3.8 - 9.9 K/cumm Hgb 11.7(L) 11.9 - 15.5 g/dL [facility] Hct 34.6(L) 35.6 - 45.5 % [facility] Plt 253 150 - 400 K/cumm [facility] MPV 11.2 9.1 - 12.3 fL [facility] RBC 3.94 3.90 - 5.20 M/cumm [facility] MCV 87.8 81.3 - 96.4 fL [facility] MCH 29.7 27.1 - 33.3 pg [facility] MCHC 33.8 32.3 - 35.7 g/dL [facility] RDW CV 13.8 11.1 - 14.9 % [facility] RDW SD 44.1 35.7 - 48.1 fL [facility] NRBC abs 0.00 0.00 - 0.01 K/cumm [facility] Blood 09/15/2024 6:17 AM DIGITAL CARTOGRAPHIC TECHNICIAN 09/15/2024 6:31 AM DIGITAL CARTOGRAPHIC TECHNICIAN Anastasia Amaro MD LAB BLOOD ORDERABLES Final Result Performing Organization Address [facility] de Phone Number [facility] [place] [address] * Type and screen (09/15/2024 6:17 AM DIGITAL CARTOGRAPHIC TECHNICIAN) [facility] Abiodun, indirect Negative Comment:Patient has previous antibody history ABO Rh O Negative [facility] Blood 09/15/2024 6:17 AM DIGITAL CARTOGRAPHIC TECHNICIAN 09/15/2024 6:30 AM DIGITAL CARTOGRAPHIC TECHNICIAN Narrative [facility] - 09/15/2024 7:57 AM DIGITAL CARTOGRAPHIC TECHNICIAN Has the patient had Daratumumab or Isatuximab in the past 6 months?->Unknown Anastasia Amaro MD LAB BLOOD BANK TEST ORDERA BLES Final Result Performing Organization Address [facility] [place] [address] * (ABNORMAL) Comprehensive metabolic panel (09/15/2024 6:17 AM DIGITAL CARTOGRAPHIC TECHNICIAN) [facility] Sodium 139 135 - 145 mmol/L Potassium, pl 3.5 3.3 - 4.9 mmol/L [facility] Chloride 106 97 - 110 mmol/L [facility] CO2 21(L) 22 - 32 mmol/L [facility] Anion gap 12 2 - 15 mmol/L [facility] BUN 8 6 - 25 mg/dL [facility] Creatinine 0.66 0.60 - 1.10 mg/dL [facility] Glucose 106 70 - 199 mg/dL [facility] Comment: Interpretive Data Fasting glucose >/= [...] Units/L [facility] Blood 09/15/2024 6:17 AM DIGITAL CARTOGRAPHIC TECHNICIAN 09/15/2024 6:31 AM DIGITAL CARTOGRAPHIC TECHNICIAN us Anastasia Amaro MD LAB BLOOD ORDERABLES Final Result [facility] One [facility] [place] [address] * nonstress test (09/13/2024 5:10 PM DIGITAL CARTOGRAPHIC TECHNICIAN) Narrative Sandra Christy MD - 09/13/2024 5:10 PM DIGITAL CARTOGRAPHIC TECHNICIAN BolaAnastasia Bay MD ? 09/13/2024 ??5:21 PM [...] nal Result * eGFR (09/12/2024 6:35 AM DIGITAL CARTOGRAPHIC TECHNICIAN) eGFR >90 >=60 mL/min/1. 73 m2 Comment: [...] last reviewed 2021. Blood 09/12/2024 6:35 AM DIGITAL CARTOGRAPHIC TECHNICIAN 09/12/2024 6:51 AM DIGITAL CARTOGRAPHIC TECHNICIAN us Anastasia Amaro MD LAB BLOOD ORDERABLES Final Result [facility] One [facility] Department of Laboratories [place], [place] [id number] * (ABNORMAL) CBC without differential (09/12/2024 6:35 AM DIGITAL CARTOGRAPHIC TECHNICIAN) Pathologist [facility] WBC 10.0(H) 3.8 - 9.9 K/cumm Hgb 11.8(L) 11.9 - 15.5 g/dL [facility] Hct 35.3(L) 35.6 - 45.5 % [facility] Plt 226 150 - 400 K/cumm [facility] MPV 11.2 9.1 - 12.3 fL [facility] RBC 3.97 3.90 - 5.20 M/cumm [facility] MCV 88.9 81.3 - 96.4 fL [facility] MCH 29.7 27.1 - 33.3 pg [facility] MCHC 33.4 32.3 - 35.7 g/dL [facility] RDW CV 13.8 11.1 - 14.9 % [facility] RDW SD 44.5 35.7 - 48.1 fL [facility] NRBC abs 0.02(H) 0.00 - 0.01 K/cumm [facility] Blood 09/12/2024 6:35 AM DIGITAL CARTOGRAPHIC TECHNICIAN 09/12/2024 6:52 AM DIGITAL CARTOGRAPHIC TECHNICIAN us Anastasia Amaro MD LAB BLOOD ORDERABLES Final Result Performing Organization Address [facility] Co de Phone Number [facility] Department [place] [address] * Type and screen (09/12/2024 6:35 AM DIGITAL CARTOGRAPHIC TECHNICIAN) Pathologist [facility] ABO Rh O Negative Abiodun, indirect Negative [facility] Comment:Patient has previous antibody history Blood 09/12/2024 6:35 AM DIGITAL CARTOGRAPHIC TECHNICIAN 09/12/2024 6:48 AM DIGITAL CARTOGRAPHIC TECHNICIAN Narrative [facility] - 09/12/2024 7:49 AM DIGITAL CARTOGRAPHIC TECHNICIAN Has the patient had Daratumumab or Isatuximab in the past 6 months?->Unknown us Anastasia Amaro MD LAB BLOOD BANK TEST ORDERA BLES Final Result Performing Organization Address City/[facility]/ZIP Co de Phone Number [facility] [place] [address] * (ABNORMAL) Comprehensive metabolic panel (09/12/2024 6:35 AM DIGITAL CARTOGRAPHIC TECHNICIAN) Pathologist [facility] Sodium 139 135 - 145 mmol/L Potassium, pl 3.8 3.3 - 4.9 mmol/L [facility] Chloride 107 97 - 110 mmol/L [facility] CO2 22 22 - 32 mmol/L [facility] Anion gap 10 2 - 15 mmol/L [facility] BUN 6 6 - 25 mg/dL [facility] Creatinine 0.64 0.60 - 1.10 mg/dL [facility] Glucose 69(L) 70 - 199 mg/dL [facility] Comment: Interpretive Data Fasting glucose >/= [...] 2022. Calcium 8.8 8.5 - 10.3 mg/dL [facility] Bilirubin, total <0.2 0.1 - 1.2 mg/dL [facility] Protein, pl 6.4(L) 6.5 - 8.5 g/dL [facility] Albumin 3.1(L) 3.5 - 5.0 g/dL [facility] Alk phos 122 40 - 130 Units/L [facility] ALT 22 7 - 45 Units/L [facility] AST 23 10 - 45 Units/L [facility] Blood 09/12/2024 6:35 AM DIGITAL CARTOGRAPHIC TECHNICIAN 09/12/2024 6:51 AM DIGITAL CARTOGRAPHIC TECHNICIAN us Anastasia Amaro MD LAB BLOOD ORDERABLES Final Result [facility] One [facility] Department [place] [address] * eGFR (09/09/2024 6:24 AM DIGITAL CARTOGRAPHIC TECHNICIAN) Pathologist [facility] eGFR >90 >=60 mL/min/1. 73 m2 Comment: [...] last reviewed 2021. Blood 09/09/2024 6:24 AM DIGITAL CARTOGRAPHIC TECHNICIAN 09/09/2024 6:52 AM DIGITAL CARTOGRAPHIC TECHNICIAN us Anastasia Amaro MD LAB BLOOD ORDERABLES Final Result Performing Organization Address City/State/[facility] Co de Phone Number [facility] One [facility] [place] [address] * (ABNORMAL) CBC without differential (09/09/2024 6:24 AM DIGITAL CARTOGRAPHIC TECHNICIAN) Pathologist [facility] WBC 8.6 3.8 - 9.9 K/cumm Hgb 10.9(L) 11.9 - 15.5 g/dL [facility] Hct 33.1(L) 35.6 - 45.5 % [facility] Plt 239 150 - 400 K/cumm [facility] MPV 11.0 9.1 - 12.3 fL [facility] RBC 3.77(L) 3.90 - 5.20 M/cumm [facility] MCV 87.8 81.3 - 96.4 fL [facility] MCH 28.9 27.1 - 33.3 pg [facility] MCHC 32.9 32.3 - 35.7 g/dL [facility] RDW CV 13.8 11.1 - 14.9 % [facility] RDW SD 43.8 35.7 - 48.1 fL [facility] NRBC abs 0.00 0.00 - 0.01 K/cumm [facility] Blood 09/09/2024 6:24 AM DIGITAL CARTOGRAPHIC TECHNICIAN 09/09/2024 6:52 AM DIGITAL CARTOGRAPHIC TECHNICIAN Anastasia Amaro MD LAB BLOOD ORDERABLES Final Result Performing Organization Address [facility] Co de Phone Number [facility] Department [place] [address] * Type and screen (09/09/2024 6:24 AM DIGITAL CARTOGRAPHIC TECHNICIAN) ABO Rh O Negative Abiodun, indirect Negative [facility] Comment:Patient has previous antibody history Blood 09/09/2024 6:24 AM DIGITAL CARTOGRAPHIC TECHNICIAN 09/09/2024 7:19 AM DIGITAL CARTOGRAPHIC TECHNICIAN Narrative [facility] - 09/09/2024 8:51 AM DIGITAL CARTOGRAPHIC TECHNICIAN Has the patient had Daratumumab or Isatuximab in the past 6 months?->Unknown Anastasia Amaro MD LAB BLOOD BANK TEST ORDERA BLES Final Result Performing Organization Address City/[facility]/ZIP Co de Phone Number [facility] [place] [address] * (ABNORMAL) Comprehensive metabolic panel (09/09/2024 6:24 AM DIGITAL CARTOGRAPHIC TECHNICIAN) Sodium 141 135 - 145 mmol/L Potassium, pl 3.8 3.3 - 4.9 mmol/L [facility] Chloride 108 97 - 110 mmol/L [facility] CO2 22 22 - 32 mmol/L [facility] Anion gap 11 2 - 15 mmol/L [facility] BUN 8 6 - 25 mg/dL [facility] Creatinine 0.75 0.60 - 1.10 mg/dL [facility] Glucose 70 70 - 199 mg/dL [facility] Comment: Interpretive Data Fasting glucose >/= [...] 2022. Calcium 8.9 8.5 - 10.3 mg/dL [facility] Bilirubin, total <0.2 0.1 - 1.2 mg/dL [facility] Protein, pl 6.2(L) 6.5 - 8.5 g/dL [facility] Albumin 3.2(L) 3.5 - 5.0 g/dL [facility] Alk phos 117 40 - 130 Units/L [facility] ALT 22 7 - 45 Units/L [facility] AST 23 10 - 45 Units/L [facility] Blood 09/09/2024 6:24 AM DIGITAL CARTOGRAPHIC TECHNICIAN 09/09/2024 6:52 AM DIGITAL CARTOGRAPHIC TECHNICIAN us Anastasia Amaro MD LAB BLOOD ORDERABLES Final Result [facility] One [facility] Department [place] [address] * US Ob Limited (09/08/2024 10:29 AM DIGITAL CARTOGRAPHIC TECHNICIAN) Fetus# Fetus1 VIEWPOINT Placenta Details anterior VIEWPOINT Presentation Vertex; Maternal right- low VIEWPOINT Fetus# Fetus2 VIEWPOINT Placenta Details anterior VIEWPOINT Presentation Vertex; Maternal left- high (presenting) VIEWPOINT Anatomical Region Laterality Modality Abdomen N/A Ultrasound 09/08/2024 10:2 9 AM DIGITAL CARTOGRAPHIC TECHNICIAN Impressions 09/08/2024 11:25 AM DIGITAL CARTOGRAPHIC TECHNICIAN 1. Mo/di twin IUP at 32w 3d. [...] esult * nonstress test (09/06/2024 8:38 PM DIGITAL CARTOGRAPHIC TECHNICIAN) Narrative Anastasia Amaro MD - 09/06/2024 8:38 PM DIGITAL CARTOGRAPHIC TECHNICIAN Pauline Simms MD ? 09/06/2024 ??8:41 PM Baby A FHR Baseline: 125 Variability: moderate Accelerations: absent Decelerations: absent in last part of tracing, was initially having small variable decels in monitoring Reactive: Yes Baby B FHR Baseline: 130 Variability: moderate Accelerations: present Decelerations: absent Reactive: Yes 29 y.o. at 32w1d a/f preeclampsia with SF On monitor [id number] Contractions: absent I have reviewed NST and instructed RN to take off monitor Pauline Simms MD us Ana M Rogers MD OB GYNE ORDERABLES Fi nal Result * eGFR (09/06/2024 4:31 AM DIGITAL CARTOGRAPHIC TECHNICIAN) eGFR >90 >=60 mL/min/1. 73 m2 Comment: [...] last reviewed 2021. Blood 09/06/2024 4:31 AM DIGITAL CARTOGRAPHIC TECHNICIAN 09/06/2024 4:53 AM DIGITAL CARTOGRAPHIC TECHNICIAN us Anastasia Amaro MD LAB BLOOD ORDERABLES Final Result [facility] [place] [address] * (ABNORMAL) CBC without differential (09/06/2024 4:31 AM DIGITAL CARTOGRAPHIC TECHNICIAN) Pathologist [facility] WBC 10.3(H) 3.8 - 9.9 K/cumm Hgb 11.7(L) 11.9 - 15.5 g/dL [facility] Hct 34.5(L) 35.6 - 45.5 % [facility] Plt 249 150 - 400 K/cumm [facility] MPV 11.1 9.1 - 12.3 fL [facility] RBC 3.96 3.90 - 5.20 M/cumm [facility] MCV 87.1 81.3 - 96.4 fL [facility] MCH 29.5 27.1 - 33.3 pg [facility] MCHC 33.9 32.3 - 35.7 g/dL [facility] RDW CV 13.6 11.1 - 14.9 % [facility] RDW SD 42.7 35.7 - 48.1 fL [facility] NRBC abs 0.00 0.00 - 0.01 K/cumm [facility] Blood 09/06/2024 4:31 AM DIGITAL CARTOGRAPHIC TECHNICIAN 09/06/2024 4:54 AM DIGITAL CARTOGRAPHIC TECHNICIAN Anastasia Amaro MD LAB BLOOD ORDERABLES Final Result [facility] [place] [address] * Type and screen (09/06/2024 4:31 AM DIGITAL CARTOGRAPHIC TECHNICIAN) Pathologist [facility] ABO Rh O Negative Abiodun, indirect Negative [facility] Comment:Patient has previous antibody history Blood 09/06/2024 4:31 AM DIGITAL CARTOGRAPHIC TECHNICIAN 09/06/2024 6:11 AM DIGITAL CARTOGRAPHIC TECHNICIAN Narrative [facility] - 09/06/2024 7:16 AM DIGITAL CARTOGRAPHIC TECHNICIAN Has the patient had Daratumumab or Isatuximab in the past 6 months?->Unknown Anastasia Amaro MD LAB BLOOD BANK TEST ORDERA BLES Final Result [facility] [place] [address] * (ABNORMAL) Comprehensive metabolic panel (09/06/2024 4:31 AM DIGITAL CARTOGRAPHIC TECHNICIAN) Sodium 138 135 - 145 mmol/L Potassium, pl 3.6 3.3 - 4.9 mmol/L [facility] Chloride 105 97 - 110 mmol/L [facility] CO2 24 22 - 32 mmol/L [facility] Anion gap 9 2 - 15 mmol/L [facility] BUN 7 6 - 25 mg/dL [facility] Creatinine 0.63 0.60 - 1.10 mg/dL [facility] Glucose 62(L) 70 - 199 mg/dL [facility] Comment: Interpretive Data Fasting glucose >/= [...] 2022. Calcium 9.3 8.5 - 10.3 mg/dL [facility] Bilirubin, total 0.3 0.1 - 1.2 mg/dL [facility] Protein, pl 6.6 6.5 - 8.5 g/dL [facility] Albumin 3.2(L) 3.5 - 5.0 g/dL [facility] Alk phos 118 40 - 130 Units/L [facility] ALT 23 7 - 45 Units/L [facility] AST 22 10 - 45 Units/L [facility] Blood 09/06/2024 4:31 AM DIGITAL CARTOGRAPHIC TECHNICIAN 09/06/2024 4:53 AM DIGITAL CARTOGRAPHIC TECHNICIAN Anastasia Amaro MD LAB BLOOD ORDERABLES Final Result Performing Organization Address [facility] Co de Phone Number [facility] [address] * Group B streptococcal culture Vaginal/Rectal (09/03/2024 10:29 AM DIGITAL CARTOGRAPHIC TECHNICIAN) Report Final Report: Negative Vaginal/Rectal 09/03/2024 10 :29 AM DIGITAL CARTOGRAPHIC TECHNICIAN 09/03/2024 10:47 AM DIGITAL CARTOGRAPHIC TECHNICIAN Narrative [facility] - 09/07/2024 11:05 AM DIGITAL CARTOGRAPHIC TECHNICIAN Testing performed by [facility] Microbiology [facility] ([phone]). us Joellen Julio MD LAB MICROBIOLOGY - GENERAL O RDERABLES Final Result Performing Organization Address [facility] de Phone Number [facility] [place] [employer] [place] [address] * eGFR (09/03/2024 5:26 AM DIGITAL CARTOGRAPHIC TECHNICIAN) eGFR >90 >=60 mL/min/1. 73 m2 Comment: [...] last reviewed 2021. Blood 09/03/2024 5:26 AM DIGITAL CARTOGRAPHIC TECHNICIAN 09/03/2024 5:39 AM DIGITAL CARTOGRAPHIC TECHNICIAN Anastasia Amaro MD LAB BLOOD ORDERABLES Final Result [facility] [employer] [place], [place] [id number] * (ABNORMAL) CBC without differential (09/03/2024 5:26 AM DIGITAL CARTOGRAPHIC TECHNICIAN) WBC 12.1(H) 3.8 - 9.9 K/cumm Hgb 11.7(L) 11.9 - 15.5 g/dL [facility] Hct 34.0(L) 35.6 - 45.5 % [facility] Plt 273 150 - 400 K/cumm [facility] MPV 11.0 9.1 - 12.3 fL [facility] RBC 3.97 3.90 - 5.20 M/cumm [facility] MCV 85.6 81.3 - 96.4 fL [facility] MCH 29.5 27.1 - 33.3 pg [facility] MCHC 34.4 32.3 - 35.7 g/dL [facility] RDW CV 13.3 11.1 - 14.9 % [facility] RDW SD 41.7 35.7 - 48.1 fL [facility] NRBC abs 0.00 0.00 - 0.01 K/cumm [facility] Blood 09/03/2024 5:26 AM DIGITAL CARTOGRAPHIC TECHNICIAN 09/03/2024 5:39 AM DIGITAL CARTOGRAPHIC TECHNICIAN us Anastasia Amaro MD LAB BLOOD ORDERABLES Final Result Performing Organization Address City/[facility]/ZIP Co de Phone Number [facility] [place] [address] * Type and screen (09/03/2024 5:26 AM DIGITAL CARTOGRAPHIC TECHNICIAN) Abiodun, indirect Negative Comment:Patient has previous antibody history ABO Rh O Negative [facility] Blood 09/03/2024 5:26 AM DIGITAL CARTOGRAPHIC TECHNICIAN 09/03/2024 5:32 AM DIGITAL CARTOGRAPHIC TECHNICIAN Narrative [facility] - 09/03/2024 6:27 AM DIGITAL CARTOGRAPHIC TECHNICIAN Has the patient had Daratumumab or Isatuximab in the past 6 months?->Unknown Anastasia Amaro MD LAB BLOOD BANK TEST ORDERA BLES Final Result [facility] One [facility] [place] [address] * (ABNORMAL) Comprehensive metabolic panel (09/03/2024 5:26 AM DIGITAL CARTOGRAPHIC TECHNICIAN) Pathologist [facility] Sodium 139 135 - 145 mmol/L Potassium, pl 4.0 3.3 - 4.9 mmol/L [facility] Chloride 105 97 - 110 mmol/L [facility] CO2 20(L) 22 - 32 mmol/L [facility] Anion gap 14 2 - 15 mmol/L [facility] BUN 8 6 - 25 mg/dL [facility] Creatinine 0.55(L) 0.60 - 1.10 mg/dL [facility] Glucose 68(L) 70 - 199 mg/dL [facility] Comment: Interpretive Data Fasting glucose >/= [...] 2022. Calcium 9.3 8.5 - 10.3 mg/dL [facility] Bilirubin, total 0.3 0.1 - 1.2 mg/dL [facility] Protein, pl 6.4(L) 6.5 - 8.5 g/dL [facility] Albumin 3.3(L) 3.5 - 5.0 g/dL [facility] Alk phos 111 40 - 130 Units/L [facility] ALT 22 7 - 45 Units/L [facility] AST 24 10 - 45 Units/L [facility] Blood 09/03/2024 5:26 AM DIGITAL CARTOGRAPHIC TECHNICIAN 09/03/2024 5:39 AM DIGITAL CARTOGRAPHIC TECHNICIAN us Anastasia Amaro MD LAB BLOOD ORDERABLES Final Result Performing Organization Address City/[facility]/ZIP Co de Phone Number [facility] One [facility] [place] [address] * ECG 12 lead (09/02/2024 4:33 PM DIGITAL CARTOGRAPHIC TECHNICIAN) Pathologist [facility] Ventricular Rate EKG/Min 110 BPM [facility] Atrial Rate 110 BPM [facility] DE-Interval (MSEC) 130 ms [facility] QRS-Interval (MSEC) 82 ms [facility] QT-Interval (MSEC) 340 ms [facility] QTc 460 ms [facility] P [place] 55 degrees [facility] R [place] 22 degrees [facility] T [place] 30 degrees [facility] Diagnosis Sinus tachycardia Otherwise normal ECG No previous ECGs available Confirmed by SAMANTA KAPLAN M.D ([id number]) on 09/06/2024 2:44:26 PM [facility] 09/02/2024 4:33 PM DIGITAL CARTOGRAPHIC TECHNICIAN 09/06/2024 2:44 PM DIGITAL CARTOGRAPHIC TECHNICIAN us Joellen Julio MD ECG ORDERABLES Final Result [facility] * eGFR (08/31/2024 6:20 AM DIGITAL CARTOGRAPHIC TECHNICIAN) eGFR >90 >=60 mL/min/1. 73 m2 Comment: [...] last reviewed 2021. Blood 08/31/2024 6:20 AM DIGITAL CARTOGRAPHIC TECHNICIAN 08/31/2024 7:25 AM DIGITAL CARTOGRAPHIC TECHNICIAN us Anastasia Amaro MD LAB BLOOD ORDERABLES Final Result [facility] One [facility] [place] [address] * (ABNORMAL) CBC without differential (08/31/2024 6:20 AM DIGITAL CARTOGRAPHIC TECHNICIAN) WBC 10.5(H) 3.8 - 9.9 K/cumm Hgb 11.5(L) 11.9 - 15.5 g/dL [facility] Hct 34.1(L) 35.6 - 45.5 % [facility] Plt 282 150 - 400 K/cumm [facility] MPV 10.9 9.1 - 12.3 fL [facility] RBC 3.93 3.90 - 5.20 M/cumm [facility] MCV 86.8 81.3 - 96.4 fL [facility] MCH 29.3 27.1 - 33.3 pg [facility] MCHC 33.7 32.3 - 35.7 g/dL [facility] RDW CV 13.7 11.1 - 14.9 % [facility] RDW SD 42.6 35.7 - 48.1 fL [facility] NRBC abs 0.00 0.00 - 0.01 K/cumm [facility] Blood 08/31/2024 6:20 AM DIGITAL CARTOGRAPHIC TECHNICIAN 08/31/2024 7:25 AM DIGITAL CARTOGRAPHIC TECHNICIAN Anastasia Amaro MD LAB BLOOD ORDERABLES Final Result Performing Organization Address [facility] Co de Phone Number [facility] [place] [address] * Type and screen (08/31/2024 6:20 AM DIGITAL CARTOGRAPHIC TECHNICIAN) [facility] ABO Rh O Negative Abiodun, indirect Negative [facility] Comment:Patient has previous antibody history Blood 08/31/2024 6:20 AM DIGITAL CARTOGRAPHIC TECHNICIAN 08/31/2024 7:41 AM DIGITAL CARTOGRAPHIC TECHNICIAN Narrative [facility] - 08/31/2024 8:26 AM DIGITAL CARTOGRAPHIC TECHNICIAN Has the patient had Daratumumab or Isatuximab in the past 6 months?->Unknown Anastasia Amaro MD LAB BLOOD BANK TEST ORDERA BLES Final Result Performing Organization Address [facility] Co de Phone Number [facility] [place] [address] * (ABNORMAL) Comprehensive metabolic panel (08/31/2024 6:20 AM DIGITAL CARTOGRAPHIC TECHNICIAN) [facility] Sodium 137 135 - 145 mmol/L Potassium, pl 3.7 3.3 - 4.9 mmol/L [facility] Chloride 103 97 - 110 mmol/L [facility] CO2 22 22 - 32 mmol/L [facility] Anion gap 12 2 - 15 mmol/L [facility] BUN 6 6 - 25 mg/dL [facility] Creatinine 0.56(L) 0.60 - 1.10 mg/dL [facility] Glucose 70 70 - 199 mg/dL [facility] Comment: Interpretive Data Fasting glucose >/= [...] 2022. Calcium 9.5 8.5 - 10.3 mg/dL [facility] Bilirubin, total 0.2 0.1 - 1.2 mg/dL [facility] Protein, pl 6.4(L) 6.5 - 8.5 g/dL [facility] Albumin 3.2(L) 3.5 - 5.0 g/dL [facility] Alk phos 103 40 - 130 Units/L [facility] ALT 28 7 - 45 Units/L [facility] AST 25 10 - 45 Units/L [facility] Blood 08/31/2024 6:20 AM DIGITAL CARTOGRAPHIC TECHNICIAN 08/31/2024 7:25 AM DIGITAL CARTOGRAPHIC TECHNICIAN us Anastasia Amaro MD LAB BLOOD ORDERABLES Final Result Performing Organization Address City/State/[facility] Co nh Phone Number [facility] One [facility] [place] [address] * nonstress test (08/29/2024 2:32 PM DIGITAL CARTOGRAPHIC TECHNICIAN) Narrative Nini Cortez MD - 08/29/2024 2:32 PM DIGITAL CARTOGRAPHIC TECHNICIAN Maureen Calix MD ? 08/29/2024 ??3:38 PM nonstress test Date/Time: 08/29/2024 2:32 PM Performed by: Maureen Calix MD Authorized by: Ana M Rogers MD ?? us Ana M Rogers MD OB GYNE ORDERABLES Fi nal Result * nonstress test (08/28/2024 7:47 PM DIGITAL CARTOGRAPHIC TECHNICIAN) Narrative Nini Cortez MD - 08/28/2024 7:47 PM DIGITAL CARTOGRAPHIC TECHNICIAN Francisca Yun MD ? 08/28/2024 ??7:48 PM A FHR Baseline: 120 Variability: moderate Reactive: Yes Contractions: absent B FHR Baseline: 130 Variability: moderate Reactive: Yes Contractions: absent Comments: No decels x2 I have reviewed NST and instructed RN to take off monitor Francisca Yun MD us Ana M Rogers MD OB GYNE ORDERABLES Fi nal Result * eGFR (08/28/2024 6:00 AM DIGITAL CARTOGRAPHIC TECHNICIAN) eGFR >90 >=60 mL/min/1. 73 m2 Comment: [...] last reviewed 2021. Blood 08/28/2024 6:00 AM DIGITAL CARTOGRAPHIC TECHNICIAN 08/28/2024 6:13 AM DIGITAL CARTOGRAPHIC TECHNICIAN Anastasia Amaro MD LAB BLOOD ORDERABLES Final Result Performing Organization Address [facility]/ZIP Co de Phone Number [facility] [place] [address] * (ABNORMAL) CBC without differential (08/28/2024 6:00 AM DIGITAL CARTOGRAPHIC TECHNICIAN) Pathologist [facility] WBC 10.3(H) 3.8 - 9.9 K/cumm Hgb 11.2(L) 11.9 - 15.5 g/dL [facility] Hct 33.0(L) 35.6 - 45.5 % [facility] Plt 289 150 - 400 K/cumm [facility] MPV 10.7 9.1 - 12.3 fL [facility] RBC 3.78(L) 3.90 - 5.20 M/cumm [facility] MCV 87.3 81.3 - 96.4 fL [facility] MCH 29.6 27.1 - 33.3 pg [facility] MCHC 33.9 32.3 - 35.7 g/dL [facility] RDW CV 13.7 11.1 - 14.9 % [facility] RDW SD 43.6 35.7 - 48.1 fL [facility] NRBC abs 0.00 0.00 - 0.01 K/cumm [facility] Blood 08/28/2024 6:00 AM DIGITAL CARTOGRAPHIC TECHNICIAN 08/28/2024 6:20 AM DIGITAL CARTOGRAPHIC TECHNICIAN us Anastasia Amaro MD LAB BLOOD [place] [address] * Type and screen (08/28/2024 6:00 AM DIGITAL CARTOGRAPHIC TECHNICIAN) Pathologist [facility] ABO Rh O Negative Comment:Patient has previous antibody history Abiodun, indirect Negative [facility] Blood 08/28/2024 6:00 AM DIGITAL CARTOGRAPHIC TECHNICIAN 08/28/2024 6:54 AM DIGITAL CARTOGRAPHIC TECHNICIAN Narrative [facility] - 08/28/2024 7:53 AM DIGITAL CARTOGRAPHIC TECHNICIAN Has the patient had Daratumumab or Isatuximab in the past 6 months?->Unknown Anastasia Amaro MD LAB BLOOD BANK TEST ORDERA BLES Final Result [facility] One [facility] [place] [address] * (ABNORMAL) Comprehensive metabolic panel (08/28/2024 6:00 AM DIGITAL CARTOGRAPHIC TECHNICIAN) Pathologist [facility] Sodium 137 135 - 145 mmol/L Potassium, pl 3.6 3.3 - 4.9 mmol/L [facility] Chloride 105 97 - 110 mmol/L [facility] CO2 21(L) 22 - 32 mmol/L [facility] Anion gap 11 2 - 15 mmol/L [facility] BUN 8 6 - 25 mg/dL [facility] Creatinine 0.52(L) 0.60 - 1.10 mg/dL [facility] Glucose 74 70 - 199 mg/dL [facility] Comment: Interpretive Data Fasting glucose >/= [...] 2022. Calcium 9.3 8.5 - 10.3 mg/dL [facility] Bilirubin, total 0.2 0.1 - 1.2 mg/dL [facility] Protein, pl 6.2(L) 6.5 - 8.5 g/dL [facility] Albumin 3.2(L) 3.5 - 5.0 g/dL [facility] Alk phos 96 40 - 130 Units/L [facility] ALT 25 7 - 45 Units/L [facility] AST 22 10 - 45 Units/L [facility] Blood 08/28/2024 6:00 AM DIGITAL CARTOGRAPHIC TECHNICIAN 08/28/2024 6:13 AM DIGITAL CARTOGRAPHIC TECHNICIAN us Anastasia Amaro MD LAB BLOOD ORDERABLES Final Result [facility] [place] [address] * eGFR (08/25/2024 6:19 AM DIGITAL CARTOGRAPHIC TECHNICIAN) eGFR >90 >=60 mL/min/1. 73 m2 Comment: [...] last reviewed 2021. Blood 08/25/2024 6:19 AM DIGITAL CARTOGRAPHIC TECHNICIAN 08/25/2024 6:33 AM DIGITAL CARTOGRAPHIC TECHNICIAN Anastasia Amaro MD LAB BLOOD ORDERABLES Final Result Performing Organization Address [facility] Co de Phone Number [facility] [place] [address] * (ABNORMAL) CBC without differential (08/25/2024 6:19 AM DIGITAL CARTOGRAPHIC TECHNICIAN) [facility] WBC 10.5(H) 3.8 - 9.9 K/cumm Hgb 11.4(L) 11.9 - 15.5 g/dL [facility] Hct 33.4(L) 35.6 - 45.5 % [facility] Plt 299 150 - 400 K/cumm [facility] MPV 10.6 9.1 - 12.3 fL [facility] RBC 3.90 3.90 - 5.20 M/cumm [facility] MCV 85.6 81.3 - 96.4 fL [facility] MCH 29.2 27.1 - 33.3 pg [facility] MCHC 34.1 32.3 - 35.7 g/dL [facility] RDW CV 13.4 11.1 - 14.9 % [facility] RDW SD 41.7 35.7 - 48.1 fL [facility] NRBC abs 0.00 0.00 - 0.01 K/cumm [facility] Blood 08/25/2024 6:19 AM DIGITAL CARTOGRAPHIC TECHNICIAN 08/25/2024 6:32 AM DIGITAL CARTOGRAPHIC TECHNICIAN Anastasia Amaro MD LAB BLOOD ORDERABLES Final Result Performing Organization Address City/[facility]/ZIP Co de Phone Number [facility] [place] [address] * Type and screen (08/25/2024 6:19 AM DIGITAL CARTOGRAPHIC TECHNICIAN) Pathologist [facility] Abiodun, indirect Negative Comment:Patient has previous antibody history ABO Rh O Negative [facility] Blood 08/25/2024 6:19 AM DIGITAL CARTOGRAPHIC TECHNICIAN 08/25/2024 7:06 AM DIGITAL CARTOGRAPHIC TECHNICIAN Narrative [facility] - 08/25/2024 8:01 AM DIGITAL CARTOGRAPHIC TECHNICIAN Has the patient had Daratumumab or Isatuximab in the past 6 months?->Unknown us Anastasia Amaro MD LAB BLOOD BANK TEST ORDERA BLES Final Result [facility] One [facility] [place] [address] * (ABNORMAL) Comprehensive metabolic panel (08/25/2024 6:19 AM DIGITAL CARTOGRAPHIC TECHNICIAN) Sodium 139 135 - 145 mmol/L Potassium, pl 3.5 3.3 - 4.9 mmol/L [facility] Chloride 105 97 - 110 mmol/L [facility] CO2 22 22 - 32 mmol/L [facility] Anion gap 12 2 - 15 mmol/L [facility] BUN 6 6 - 25 mg/dL [facility] Creatinine 0.53(L) 0.60 - 1.10 mg/dL [facility] Glucose 70 70 - 199 mg/dL [facility] Comment: Interpretive Data Fasting glucose >/= [...] Calcium 9.2 8.5 - 10.3 mg/dL [facility] Bilirubin, total 0.2 0.1 - 1.2 mg/dL [facility] Protein, pl 6.4(L) 6.5 - 8.5 g/dL [facility] Albumin 3.2(L) 3.5 - 5.0 g/dL [facility] Alk phos 92 40 - 130 Units/L [facility] ALT 22 7 - 45 Units/L [facility] AST 22 10 - 45 Units/L [facility] Blood 08/25/2024 6:19 AM DIGITAL CARTOGRAPHIC TECHNICIAN 08/25/2024 6:33 AM DIGITAL CARTOGRAPHIC TECHNICIAN us Anastasia Amaro MD LAB BLOOD ORDERABLES Final Result [facility] [place] [address] * US Ob Follow Up (08/24/2024 9:37 AM DIGITAL CARTOGRAPHIC TECHNICIAN) Fetus# Fetus1 VIEWPOINT Estimated Weight 1,348 g&grams VIEWPOINT Placenta Details anterior VIEWPOINT Presentation Vertex; Maternal right- low VIEWPOINT Fetus# Fetus2 VIEWPOINT Estimated Weight 1,784 g&grams VIEWPOINT Placenta Details anterior VIEWPOINT Presentation Vertex; Maternal left- high (presenting) VIEWPOINT Anatomical Region Laterality Modality Abdomen N/A Ultrasound 08/24/2024 9:37 AM DIGITAL CARTOGRAPHIC TECHNICIAN Impressions 08/24/2024 2:06 PM DIGITAL CARTOGRAPHIC TECHNICIAN 1. Presumed Mo/Di twin IUP at 30w [...] Edite d * eGFR (08/22/2024 6:02 AM DIGITAL CARTOGRAPHIC TECHNICIAN) eGFR >90 >=60 mL/min/1. 73 m2 Comment: [...] last reviewed 2021. Blood 08/22/2024 6:02 AM DIGITAL CARTOGRAPHIC TECHNICIAN 08/22/2024 6:18 AM DIGITAL CARTOGRAPHIC TECHNICIAN Anastasia Amaro MD LAB BLOOD ORDERABLES Final Result Performing Organization Address City/[facility]/ZIP Co de Phone Number [facility] Department [place] [address] * (ABNORMAL) CBC without differential (08/22/2024 6:02 AM DIGITAL CARTOGRAPHIC TECHNICIAN) WBC 12.2(H) 3.8 - 9.9 K/cumm Hgb 11.8(L) 11.9 - 15.5 g/dL [facility] Hct 34.4(L) 35.6 - 45.5 % [facility] Plt 277 150 - 400 K/cumm [facility] MPV 10.4 9.1 - 12.3 fL [facility] RBC 4.02 3.90 - 5.20 M/cumm [facility] MCV 85.6 81.3 - 96.4 fL [facility] MCH 29.4 27.1 - 33.3 pg [facility] MCHC 34.3 32.3 - 35.7 g/dL [facility] RDW CV 13.6 11.1 - 14.9 % [facility] RDW SD 42.4 35.7 - 48.1 fL [facility] NRBC abs 0.00 0.00 - 0.01 K/cumm [facility] Blood 08/22/2024 6:02 AM DIGITAL CARTOGRAPHIC TECHNICIAN 08/22/2024 6:18 AM DIGITAL CARTOGRAPHIC TECHNICIAN Anastasia Amaro MD LAB BLOOD ORDERABLES Final Result Performing Organization Address City/[facility]/ZIP Co de Phone Number [facility] [place] [address] * Type and screen (08/22/2024 6:02 AM DIGITAL CARTOGRAPHIC TECHNICIAN) Abiodun, indirect Negative Comment:Patient has previous antibody history ABO Rh O Negative [facility] Blood 08/22/2024 6:02 AM DIGITAL CARTOGRAPHIC TECHNICIAN 08/22/2024 6:24 AM DIGITAL CARTOGRAPHIC TECHNICIAN Narrative [facility] - 08/22/2024 7:25 AM DIGITAL CARTOGRAPHIC TECHNICIAN Has the patient had Daratumumab or Isatuximab in the past 6 months?->Unknown Anastasia Amaro MD LAB BLOOD BANK TEST ORDERA BLES Final Result [facility] One [facility] [place] [address] * (ABNORMAL) Comprehensive metabolic panel (08/22/2024 6:02 AM DIGITAL CARTOGRAPHIC TECHNICIAN) Pathologist [facility] Sodium 138 135 - 145 mmol/L Potassium, pl 3.7 3.3 - 4.9 mmol/L [facility] Chloride 104 97 - 110 mmol/L [facility] CO2 23 22 - 32 mmol/L [facility] Anion gap 11 2 - 15 mmol/L [facility] BUN 7 6 - 25 mg/dL [facility] Creatinine 0.53(L) 0.60 - 1.10 mg/dL [facility] Glucose 72 70 - 199 mg/dL [facility] Comment: Interpretive Data Fasting glucose >/= [...] 2022. Calcium 9.3 8.5 - 10.3 mg/dL [facility] Bilirubin, total 0.2 0.1 - 1.2 mg/dL [facility] Protein, pl 6.6 6.5 - 8.5 g/dL [facility] Albumin 3.2(L) 3.5 - 5.0 g/dL [facility] Alk phos 90 40 - 130 Units/L [facility] ALT 19 7 - 45 Units/L [facility] AST 18 10 - 45 Units/L [facility] Blood 08/22/2024 6:02 AM DIGITAL CARTOGRAPHIC TECHNICIAN 08/22/2024 6:18 AM DIGITAL CARTOGRAPHIC TECHNICIAN us Anastasia Amaro MD LAB BLOOD ORDERABLES Final Result [facility] [place] [address] * eGFR (08/19/2024 6:25 AM DIGITAL CARTOGRAPHIC TECHNICIAN) eGFR >90 >=60 mL/min/1. 73 m2 Comment: [...] last reviewed 2021. Blood 08/19/2024 6:25 AM DIGITAL CARTOGRAPHIC TECHNICIAN 08/19/2024 7:23 AM DIGITAL CARTOGRAPHIC TECHNICIAN Anastasia Amaro MD LAB BLOOD ORDERABLES Final Result Performing Organization Address [facility] Co de Phone Number [facility] Department of [place] [address] * (ABNORMAL) CBC without differential (08/19/2024 6:25 AM DIGITAL CARTOGRAPHIC TECHNICIAN) Pathologist [facility] WBC 11.2(H) 3.8 - 9.9 K/cumm Hgb 11.3(L) 11.9 - 15.5 g/dL [facility] Hct 33.9(L) 35.6 - 45.5 % [facility] Plt 249 150 - 400 K/cumm [facility] MPV 10.6 9.1 - 12.3 fL [facility] RBC 3.89(L) 3.90 - 5.20 M/cumm [facility] MCV 87.1 81.3 - 96.4 fL [facility] MCH 29.0 27.1 - 33.3 pg [facility] MCHC 33.3 32.3 - 35.7 g/dL [facility] RDW CV 13.4 11.1 - 14.9 % [facility] RDW SD 42.5 35.7 - 48.1 fL [facility] NRBC abs 0.00 0.00 - 0.01 K/cumm [facility] Blood 08/19/2024 6:25 AM DIGITAL CARTOGRAPHIC TECHNICIAN 08/19/2024 7:23 AM DIGITAL CARTOGRAPHIC TECHNICIAN us Anastasia Amaro MD LAB BLOOD ORDERABLES Final Result Performing Organization Address City/[facility]/ZIP Co de Phone Number [facility] Department [place] [address] * Type and screen (08/19/2024 6:25 AM DIGITAL CARTOGRAPHIC TECHNICIAN) Pathologist [facility] Abiodun, indirect Negative ABO Rh O Negative [facility] Comment:Patient has previous antibody history Blood 08/19/2024 6:25 AM DIGITAL CARTOGRAPHIC TECHNICIAN 08/19/2024 7:31 AM DIGITAL CARTOGRAPHIC TECHNICIAN Narrative [facility] - 08/19/2024 8:22 AM DIGITAL CARTOGRAPHIC TECHNICIAN Has the patient had Daratumumab or Isatuximab in the past 6 months?->Unknown Anastasia Amaro MD LAB BLOOD BANK TEST ORDERA BLES Final Result [facility] [place] [address] * (ABNORMAL) Comprehensive metabolic panel (08/19/2024 6:25 AM DIGITAL CARTOGRAPHIC TECHNICIAN) Pathologist [facility] Sodium 138 135 - 145 mmol/L Potassium, pl 3.7 3.3 - 4.9 mmol/L [facility] Chloride 105 97 - 110 mmol/L [facility] CO2 23 22 - 32 mmol/L [facility] Anion gap 10 2 - 15 mmol/L [facility] BUN 7 6 - 25 mg/dL [facility] Creatinine 0.54(L) 0.60 - 1.10 mg/dL [facility] Glucose 68(L) 70 - 199 mg/dL [facility] Comment: Interpretive Data Fasting glucose >/= [...] 2022. Calcium 9.3 8.5 - 10.3 mg/dL [facility] Bilirubin, total 0.2 0.1 - 1.2 mg/dL [facility] Protein, pl 6.3(L) 6.5 - 8.5 g/dL [facility] Albumin 3.0(L) 3.5 - 5.0 g/dL [facility] Alk phos 88 40 - 130 Units/L [facility] ALT 13 7 - 45 Units/L [facility] AST 18 10 - 45 Units/L [facility] Blood 08/19/2024 6:25 AM DIGITAL CARTOGRAPHIC TECHNICIAN 08/19/2024 7:23 AM DIGITAL CARTOGRAPHIC TECHNICIAN us Anastasia Amaro MD LAB BLOOD ORDERABLES Final Result [facility] [place] [address] * US Ob Limited (08/16/2024 8:35 AM DIGITAL CARTOGRAPHIC TECHNICIAN) Fetus# Fetus1 VIEWPOINT Placenta Details anterior VIEWPOINT Presentation Transverse, maternal right-low VIEWPOINT Fetus# Fetus2 VIEWPOINT Placenta Details anterior VIEWPOINT Presentation Vertex; Maternal left- high VIEWPOINT Anatomical Region Laterality Modality Abdomen N/A Ultrasound 08/16/2024 8:36 AM DIGITAL CARTOGRAPHIC TECHNICIAN Impressions 08/16/2024 2:23 PM DIGITAL CARTOGRAPHIC TECHNICIAN Diamniotic (presumed MCDA) TIUP at 29w1d who is admitted for preE with severe features who presents for ??TTTS screen.Chorionicity was not fully assessed but [facility]. Anatomic surveys were also completed [...] previously determined to [facility]. Anatomic surveys were also completed there. [...] Result * Antibody identification (08/16/2024 7:34 AM DIGITAL CARTOGRAPHIC TECHNICIAN) Pathologist [facility] Antibody ID 1 Passive Anti-D Blood 08/16/2024 7:34 AM DIGITAL CARTOGRAPHIC TECHNICIAN 08/16/2024 7:34 AM DIGITAL CARTOGRAPHIC TECHNICIAN us Anastasia Amaro MD LAB BLOOD BANK TEST ORDERA BLES Final Result [facility] [place] [address] * eGFR (08/16/2024 6:15 AM DIGITAL CARTOGRAPHIC TECHNICIAN) Pathologist [facility] eGFR >90 >=60 mL/min/1. 73 m2 Comment: [...] last reviewed 2021. Blood 08/16/2024 6:15 AM DIGITAL CARTOGRAPHIC TECHNICIAN 08/16/2024 6:29 AM DIGITAL CARTOGRAPHIC TECHNICIAN Anastasia Amaro MD LAB BLOOD ORDERABLES Final Result Performing Organization Address City/[facility]/ZIP Co de Phone Number [facility] Department [place] [address] * Thyroid Function [place] (08/16/2024 6:15 AM DIGITAL CARTOGRAPHIC TECHNICIAN) Pathologist [facility] TSH 3.83 0.30 - 4.20 mcIUnit/mL Blood 08/16/2024 6:15 AM DIGITAL CARTOGRAPHIC TECHNICIAN 08/16/2024 6:29 AM DIGITAL CARTOGRAPHIC TECHNICIAN us Anastasia Amaro MD LAB BLOOD ORDERABLES Final Result Performing Organization Address City/[facility] Co de Phone Number [facility] [place] [address] * (ABNORMAL) CBC without differential (08/16/2024 6:15 AM DIGITAL CARTOGRAPHIC TECHNICIAN) WBC 10.9(H) 3.8 - 9.9 K/cumm Hgb 11.6(L) 11.9 - 15.5 g/dL [facility] Hct 34.0(L) 35.6 - 45.5 % [facility] Plt 257 150 - 400 K/cumm [facility] MPV 10.4 9.1 - 12.3 fL [facility] RBC 3.95 3.90 - 5.20 M/cumm [facility] MCV 86.1 81.3 - 96.4 fL [facility] MCH 29.4 27.1 - 33.3 pg [facility] MCHC 34.1 32.3 - 35.7 g/dL [facility] RDW CV 13.3 11.1 - 14.9 % [facility] RDW SD 41.5 35.7 - 48.1 fL [facility] NRBC abs 0.00 0.00 - 0.01 K/cumm [facility] Blood 08/16/2024 6:15 AM DIGITAL CARTOGRAPHIC TECHNICIAN 08/16/2024 6:30 AM DIGITAL CARTOGRAPHIC TECHNICIAN us Anastasia Amaro MD LAB BLOOD ORDERABLES Final Result Performing Organization Address City/[facility] Co de Phone Number [facility] [place] [address] * (ABNORMAL) Type and screen (08/16/2024 6:15 AM DIGITAL CARTOGRAPHIC TECHNICIAN) [facility] Abiodun, indirect Positive(A) ABO Rh O Negative [facility] Blood 08/16/2024 6:15 AM DIGITAL CARTOGRAPHIC TECHNICIAN 08/16/2024 6:25 AM DIGITAL CARTOGRAPHIC TECHNICIAN Narrative [facility] - 08/16/2024 7:34 AM DIGITAL CARTOGRAPHIC TECHNICIAN Has the patient had Daratumumab or Isatuximab in the past 6 months?->Unknown us Anastasia Amaro MD LAB BLOOD BANK TEST ORDERA BLES Final Result [facility] [place] [address] * (ABNORMAL) Comprehensive metabolic panel (08/16/2024 6:15 AM DIGITAL CARTOGRAPHIC TECHNICIAN) [facility] Sodium 139 135 - 145 mmol/L Potassium, pl 3.4 3.3 - 4.9 mmol/L [facility] Chloride 105 97 - 110 mmol/L [facility] CO2 23 22 - 32 mmol/L [facility] Anion gap 11 2 - 15 mmol/L [facility] BUN 8 6 - 25 mg/dL [facility] Creatinine 0.51(L) 0.60 - 1.10 mg/dL [facility] Glucose 72 70 - 199 mg/dL [facility] Comment: Interpretive Data Fasting glucose >/= [...] 2022. Calcium 9.2 8.5 - 10.3 mg/dL [facility] Bilirubin, total 0.2 0.1 - 1.2 mg/dL [facility] Protein, pl 6.4(L) 6.5 - 8.5 g/dL [facility] Albumin 3.2(L) 3.5 - 5.0 g/dL [facility] Alk phos 86 40 - 130 Units/L [facility] ALT 16 7 - 45 Units/L [facility] AST 16 10 - 45 Units/L [facility] Blood 08/16/2024 6:15 AM DIGITAL CARTOGRAPHIC TECHNICIAN 08/16/2024 6:29 AM DIGITAL CARTOGRAPHIC TECHNICIAN Anastasia Amaro MD LAB BLOOD ORDERABLES Final Result [facility] Department [place] [address] * POCT glucose (08/14/2024 3:06 PM DIGITAL CARTOGRAPHIC TECHNICIAN) [facility] Signature Glucose, POC 103 70 - 199 mg/dL Comment:Post Meal Glucose comment 1 Post Meal [facility] Blood 08/14/2024 3:06 PM DIGITAL CARTOGRAPHIC TECHNICIAN 08/14/2024 3:06 PM DIGITAL CARTOGRAPHIC TECHNICIAN us Anastasia Amaro MD LAB POCT ORDERABLES - JELENA CE Final Result Performing Organization Address [facility] Co de Phone Number [facility] Department [place] [address] * ECG 12 lead (08/13/2024 9:02 AM DIGITAL CARTOGRAPHIC TECHNICIAN) [facility] Ventricular Rate EKG/Min 122 BPM [facility] Atrial Rate 122 BPM [facility] DE-Interval (MSEC) 132 ms [facility] QRS-Interval (MSEC) 80 ms [facility] QT-Interval (MSEC) 324 ms [facility] QTc 461 ms [facility] P [place] 49 degrees [facility] R [place] 18 degrees [facility] T [place] 29 degrees [facility] Diagnosis Sinus tachycardia Otherwise normal ECG When compared with ECG of 04-AUG-2024 17:45, No significant change was found Confirmed by SAMANTA KAPLAN M.D ([id number]) on 08/15/2024 12:21:02 PM [facility] 08/13/2024 9:02 AM DIGITAL CARTOGRAPHIC TECHNICIAN 08/15/2024 12:21 PM DIGITAL CARTOGRAPHIC TECHNICIAN us Anastasia Amaro MD ECG ORDERABLES Final Resu lt Performing Organization Address [facility] de Phone Number [facility] * Antibody identification (08/13/2024 7:42 AM DIGITAL CARTOGRAPHIC TECHNICIAN) [facility] Antibody ID 1 Passive Anti-D Blood 08/13/2024 7:42 AM DIGITAL CARTOGRAPHIC TECHNICIAN 08/13/2024 7:42 AM DIGITAL CARTOGRAPHIC TECHNICIAN us Anastasia Amaro MD LAB BLOOD BANK TEST ORDERA BLES Final Result Performing Organization Address [facility] Co de Phone Number [facility] Department [place] [address] * eGFR (08/13/2024 5:44 AM DIGITAL CARTOGRAPHIC TECHNICIAN) [facility] eGFR >90 >=60 mL/min/1. 73 m2 [...] last reviewed 2021. Blood 08/13/2024 5:44 AM DIGITAL CARTOGRAPHIC TECHNICIAN 08/13/2024 6:05 AM DIGITAL CARTOGRAPHIC TECHNICIAN us Anastasia Amaro MD LAB BLOOD ORDERABLES Final Result [facility] One [facility] Department of Laboratories [place], [place] [id number] * HIV 1/2 Antibody plus p24 Antigen Blood (08/13/2024 5:44 AM DIGITAL CARTOGRAPHIC TECHNICIAN) HIV 1/2 ab + p24 ag Nonreactive Nonreactive Comment:Nonreactive for HIV- 1 antigen and HIV-1/HIV-2 antibodies. No laboratory evidence of HIV infection. If acute HIV infection is suspected, consider testing for HIV-1 RNA. Current interpretive data was last revised on 22. Blood 08/13/2024 5:44 AM DIGITAL CARTOGRAPHIC TECHNICIAN 08/13/2024 6:05 AM DIGITAL CARTOGRAPHIC TECHNICIAN Anastasia Amaro MD LAB MICROBIOLOGY - GENERAL ORDERABLES Final Result Performing Organization Address City/[facility] Co de Phone Number [facility] [place] [address] * RPR Blood (08/13/2024 5:44 AM DIGITAL CARTOGRAPHIC TECHNICIAN) [facility] RPR Nonreactive Nonreactive Blood 08/13/2024 5:44 AM DIGITAL CARTOGRAPHIC TECHNICIAN 08/13/2024 6:05 AM DIGITAL CARTOGRAPHIC TECHNICIAN Anastasia Amaro MD LAB MICROBIOLOGY - GENERAL ORDERABLES Final Result Performing Organization Address [facility] de Phone Number [facility] [place] [address] * (ABNORMAL) CBC without differential (08/13/2024 5:44 AM DIGITAL CARTOGRAPHIC TECHNICIAN) [facility] WBC 12.4(H) 3.8 - 9.9 K/cumm Hgb 11.8(L) 11.9 - 15.5 g/dL [facility] Hct 34.4(L) 35.6 - 45.5 % [facility] Plt 295 150 - 400 K/cumm [facility] MPV 10.3 9.1 - 12.3 fL [facility] RBC 3.93 3.90 - 5.20 M/cumm [facility] MCV 87.5 81.3 - 96.4 fL [facility] MCH 30.0 27.1 - 33.3 pg [facility] MCHC 34.3 32.3 - 35.7 g/dL [facility] RDW CV 13.6 11.1 - 14.9 % [facility] RDW SD 43.5 35.7 - 48.1 fL [facility] NRBC abs 0.00 0.00 - 0.01 K/cumm [facility] Blood 08/13/2024 5:44 AM DIGITAL CARTOGRAPHIC TECHNICIAN 08/13/2024 6:05 AM DIGITAL CARTOGRAPHIC TECHNICIAN Anastasia Amaro MD LAB BLOOD ORDERABLES Final Result Performing Organization Address [facility] [place] [address] * (ABNORMAL) Type and screen (08/13/2024 5:44 AM DIGITAL CARTOGRAPHIC TECHNICIAN) Pathologist [facility] ABO Rh O Negative Abiodun, indirect Positive(A) [facility] Blood 08/13/2024 5:44 AM DIGITAL CARTOGRAPHIC TECHNICIAN 08/13/2024 6:19 AM DIGITAL CARTOGRAPHIC TECHNICIAN Narrative [facility] - 08/13/2024 7:42 AM DIGITAL CARTOGRAPHIC TECHNICIAN Has the patient had Daratumumab or Isatuximab in the past 6 months?->Unknown Anastasia Amaro MD LAB BLOOD BANK TEST ORDERA BLES Final Result Performing Organization Address [facility] de Phone Number [facility] [place] [address] * (ABNORMAL) Comprehensive metabolic panel (08/13/2024 5:44 AM DIGITAL CARTOGRAPHIC TECHNICIAN) Pathologist [facility] Sodium 137 135 - 145 mmol/L Potassium, pl 3.7 3.3 - 4.9 mmol/L [facility] Chloride 104 97 - 110 mmol/L [facility] CO2 22 22 - 32 mmol/L [facility] Anion gap 11 2 - 15 mmol/L [facility] BUN 8 6 - 25 mg/dL [facility] Creatinine 0.49(L) 0.60 - 1.10 mg/dL [facility] Glucose 74 70 - 199 mg/dL [facility] Comment: Interpretive Data Fasting glucose >/= [...] Calcium 9.4 8.5 - 10.3 mg/dL [facility] Bilirubin, total 0.3 0.1 - 1.2 mg/dL [facility] Protein, pl 6.5 6.5 - 8.5 g/dL [facility] Albumin 3.3(L) 3.5 - 5.0 g/dL [facility] Alk phos 85 40 - 130 Units/L [facility] ALT 21 7 - 45 Units/L [facility] AST 19 10 - 45 Units/L [facility] Blood 08/13/2024 5:44 AM DIGITAL CARTOGRAPHIC TECHNICIAN 08/13/2024 6:05 AM DIGITAL CARTOGRAPHIC TECHNICIAN Anastasia Amaro MD LAB BLOOD ORDERABLES Final Result Performing Organization Address [facility] de Phone Number [facility] [place] [address] * GTT 50gm 1hr gestational screen (08/12/2024 11:29 AM DIGITAL CARTOGRAPHIC TECHNICIAN) GTT 50g gest screen 106 <=140 mg/dL [...] on 2020. Blood 08/12/2024 11:2 9 AM DIGITAL CARTOGRAPHIC TECHNICIAN 08/12/2024 11:41 AM DIGITAL CARTOGRAPHIC TECHNICIAN Anastasia Amaro MD LAB BLOOD ORDERABLES Final Result Performing Organization Address [facility]/ZIP Co de Phone Number [facility] [place] [address] * Antibody identification (08/10/2024 7:02 AM DIGITAL CARTOGRAPHIC TECHNICIAN) Antibody ID 1 Passive Anti-D Blood 08/10/2024 7:02 AM DIGITAL CARTOGRAPHIC TECHNICIAN 08/10/2024 7:02 AM DIGITAL CARTOGRAPHIC TECHNICIAN us Anastasia Amaro MD LAB BLOOD BANK TEST ORDERA BLES Final Result Performing Organization Address City/State/ZIP Co nh Phone Number [facility] [place] [address] * eGFR (08/10/2024 4:49 AM DIGITAL CARTOGRAPHIC TECHNICIAN) eGFR >90 >=60 mL/min/1. 73 m2 Comment: [...] last reviewed 2021. Blood 08/10/2024 4:49 AM DIGITAL CARTOGRAPHIC TECHNICIAN 08/10/2024 5:31 AM DIGITAL CARTOGRAPHIC TECHNICIAN Anastasia Amaro MD LAB BLOOD ORDERABLES Final Result Performing Organization Address [facility] Co de Phone Number [facility] [place] [address] * (ABNORMAL) CBC without differential (08/10/2024 4:49 AM DIGITAL CARTOGRAPHIC TECHNICIAN) WBC 11.7(H) 3.8 - 9.9 K/cumm Hgb 11.7(L) 11.9 - 15.5 g/dL [facility] Hct 35.0(L) 35.6 - 45.5 % [facility] Plt 293 150 - 400 K/cumm [facility] MPV 10.5 9.1 - 12.3 fL [facility] RBC 4.00 3.90 - 5.20 M/cumm [facility] MCV 87.5 81.3 - 96.4 fL [facility] MCH 29.3 27.1 - 33.3 pg [facility] MCHC 33.4 32.3 - 35.7 g/dL [facility] RDW CV 13.7 11.1 - 14.9 % [facility] RDW SD 43.8 35.7 - 48.1 fL [facility] NRBC abs 0.00 0.00 - 0.01 K/cumm [facility] Blood 08/10/2024 4:49 AM DIGITAL CARTOGRAPHIC TECHNICIAN 08/10/2024 5:42 AM DIGITAL CARTOGRAPHIC TECHNICIAN Anastasia Amaro MD LAB BLOOD ORDERABLES Final Result Performing Organization Address City/[facility]/ZIP Co de Phone Number [facility] [place] [address] * (ABNORMAL) Type and screen (08/10/2024 4:49 AM DIGITAL CARTOGRAPHIC TECHNICIAN) Abiodun, indirect Positive(A) ABO Rh O Negative [facility] Blood 08/10/2024 4:49 AM DIGITAL CARTOGRAPHIC TECHNICIAN 08/10/2024 6:04 AM DIGITAL CARTOGRAPHIC TECHNICIAN Narrative [facility] - 08/10/2024 7:02 AM DIGITAL CARTOGRAPHIC TECHNICIAN Has the patient had Daratumumab or Isatuximab in the past 6 months?->Unknown us Anastasia Amaro MD LAB BLOOD BANK TEST ORDERA BLES Final Result [facility] [place] [address] * (ABNORMAL) Comprehensive metabolic panel (08/10/2024 4:49 AM DIGITAL CARTOGRAPHIC TECHNICIAN) Sodium 135 135 - 145 mmol/L Potassium, pl 3.5 3.3 - 4.9 mmol/L [facility] Chloride 102 97 - 110 mmol/L [facility] CO2 22 22 - 32 mmol/L [facility] Anion gap 11 2 - 15 mmol/L [facility] BUN 9 6 - 25 mg/dL [facility] Creatinine 0.51(L) 0.60 - 1.10 mg/dL [facility] Glucose 79 70 - 199 mg/dL [facility] Comment: Interpretive Data Fasting glucose >/= [...] 2022. Calcium 9.2 8.5 - 10.3 mg/dL [facility] Bilirubin, total 0.2 0.1 - 1.2 mg/dL [facility] Protein, pl 6.6 6.5 - 8.5 g/dL [facility] Albumin 3.2(L) 3.5 - 5.0 g/dL [facility] Alk phos 85 40 - 130 Units/L [facility] ALT 22 7 - 45 Units/L [facility] AST 19 10 - 45 Units/L [facility] Blood 08/10/2024 4:49 AM DIGITAL CARTOGRAPHIC TECHNICIAN 08/10/2024 5:31 AM DIGITAL CARTOGRAPHIC TECHNICIAN us Anastasia Amaro MD LAB BLOOD ORDERABLES Final Result [facility] [place] [address] * US Ob 14 Weeks Or Over (08/09/2024 9:47 AM DIGITAL CARTOGRAPHIC TECHNICIAN) Fetus# Fetus1 VIEWPOINT Placenta Details anterior VIEWPOINT Presentation Vertex; Maternal right- low VIEWPOINT Fetus# Fetus2 VIEWPOINT Placenta Details anterior VIEWPOINT Presentation Vertex; Maternal left- high VIEWPOINT Anatomical Region Laterality Modality Abdomen N/A Ultrasound 08/09/2024 9:50 AM DIGITAL CARTOGRAPHIC TECHNICIAN Impressions 08/09/2024 11:52 AM DIGITAL CARTOGRAPHIC TECHNICIAN 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 Chorionicity was not fully assessed but was previously determined to be monochorionic by the [facility] practice. Anatomic surveys were also completed [...] waspreviously determined to be monochorionic by the [facility]FM practice.Anatomic surveys were also completed there. [...] - GENERAL ORDERABLES Final Result [facility] [address] Department [place] [address] from Last 3 Months or Most Recently Relevant to Health Maintenance Insurance [facility] [employer] [facility] [employer] Advance Directives For more information, please contact: [phone] * Full Code (Latest Code Status on File) Date Activated Date Inactivated Comments 09/19/2024 4:34 PM 09/22/2024 3:32 PM * Full Code Date Activated Date Inactivated Comments 07/29/2024 3:05 AM 09/19/2024 4:34 PM Care Teams Oceanographer Geological Relationship Specialty Start Date End Date No, Physician PCP - General 02/25/24
== END 2024-11-09 09:45 | disposition home or self-care (01) ==
LOC: CHSCARD 09:46
PROVIDERS: PCP Internal Medicine; Visit Provider Internal Medicine
DX: I10 Essential (primary) hypertension (principal); R00.1 Bradycardia, unspecified
CPT/HCPCS: 93005

== ENCOUNTER 2024-11-13 20:13 | Emergency (ER) | payer OTHER, MEDICAID, SELFPAY ==
[2024-11-13] VITALS (11 sets, daily range): BP systolic 145–172; BP diastolic 92–105; PULSE 67–86; RESP 15–18; TEMP 36.8; O2SAT 98–100
--- OUTSIDE RECORDS SUMMARY | 2024-11-13 20:15 | XMS_ITS | Encounter Summary ---
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 difficile 10/20/2018 10/20/2018 documented as of this encounter
--- OUTSIDE RECORDS SUMMARY | 2024-11-13 20:15 | XMS_ITS | Clinical Summary ---
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 difficile 10/20/2018 10/20/2018 Insurance [facility] MEDICAID
--- OUTSIDE RECORDS SUMMARY | 2024-11-13 20:15 | XMS_ITS | Clinical Summary ---
Author Organization [facility] Address [address] [place] [address] Care Team Providers Care Hay Stacker Operator Name Role Phone No, Physician Primary Care Provider [phone] Allergies No known active allergies Medications acetaminophen [...] Blood pressures well controlled on N120XL and X022CUF. CBC/CMP WNL, UPC 0.1. Enrolled in remote [...] # Disposition: Follow up task sent to [facility] scheduling pool for appointments in 2 and 6 weeks. They are enrolled in remote blood pressure monitoring for their BP check. Desires discharge home today. Service Coverage These phones are service phones and carried 27/04 in house: R1 (first call) [phone] R1 alt (second call) [phone] R4 (Chief) [phone] 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 08/29/2024 [...] Blood pressures well controlled on N120XL and P074LOW. Magnesium for seizure prophylaxis. #sinus tachycardia, intermittent: [...] found out that that would be in [place] he used an expletive to express that they would not be doing that Resolved Problems Problem Noted Date Diagnosed Date Resolved Date Abdominal pain 07/06/2012 04/15/2024 Encounters Date Type Department Care Team Description 11/04/2024 Telephone Psychiatry James Rojas MD Reminder of Appointment 11/03/2024 4:37 PM KNIFE MACHINE OPERATOR - 11/03/2024 11:59 PM KNIFE MACHINE OPERATOR Hospital Encounter [facility] [address] [place] [address] Encounter for routine follow-up Discharge Disposition: Discharge to home or self care 11/03/2024 1:40 PM KNIFE MACHINE OPERATOR Office Visit [facility] Maternal- Medicine [address] [place] [address] Floor [address] [place] [phone] Encounter for routine follow-up (Primary Dx) 10/28/2024 [place] [phone] Nancy Noel, [place] [facility] Brief Therapeutic Intervention 10/20/2024 1:00 PM KNIFE MACHINE OPERATOR Office Visit [facility] Maternal- Medicine [address] [place] [place] [address] Floor [address] [place] [phone] care following delivery (Primary Dx) 10/20/2024 Orders Only [facility] Maternal- Medicine [address] [place] [place] [address] Floor [address] [place] [phone] Gracy Hicks, beater dumper care following delivery (Primary Dx); Preeclampsia, unspecified trimester 10/18/2024 1:00 PM KNIFE MACHINE [place] [address] Nancy Noel, TYPE PROOF REPRODUCER Generalized anxiety disorder (Primary Dx) 10/16/2024 9:30 AM KNIFE MACHINE OPERATOR - 10/16/2024 2:10 PM KNIFE MACHINE OPERATOR Emergency [facility] Emergency Department [address] [place] [address] Satnam Nair MD Secondary hypertension (Primary Dx) Discharge Disposition: Discharge to home or self care 10/07/2024 Telephone [facility] [place] [address] Nancy Noel, [facility] Initial Contact 09/30/2024 Encounter [facility] [address] [place] [address] 09/25/2024 Encounter [facility] [address] [place] [address] 09/19/2024 1:57 PM KNIFE MACHINE OPERATOR Anesthesia Event [address] [phone] Sidra Ann MD Bailey, Cody Allen, MD 09/19/2024 1:30 PM KNIFE MACHINE OPERATOR - 09/19/2024 4:05 PM KNIFE MACHINE OPERATOR Surgery [address] [address] Josefina Peter MD SECTION 09/15/2024 9:00 AM KNIFE MACHINE OPERATOR Ancillary Procedure [address] [address] 09/08/2024 10:00 AM KNIFE MACHINE OPERATOR Ancillary Procedure [address] [address] 08/24/2024 12:30 PM KNIFE MACHINE OPERATOR Ancillary Procedure [address] [address] 08/16/2024 8:15 AM KNIFE MACHINE OPERATOR Ancillary Procedure [address] [address] 07/29/2024 2:42 AM CDT - 09/22/2024 11:26 AM KNIFE MACHINE OPERATOR Hospital Encounter [address] [place] [address] Anastasia Amaro MD Bligard, MD Sumanth Fitzgerald, [...] Grandmother Cancer Neg Hx no colon or 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 Never 07/29/2024 Do you belong to any clubs o r organizations such as alevism groups, unions, fraternal or athletic groups, or [...] staff should administer the PHQ-9) 0 07/28/2024 [facility] - Occupational [...] things needed for daily living? No 07/29/2024 [facility] Depression Scale Answer Date Recorded [facility] Depression Scale Total 21 10/20/2024 The thought [...] any time in the past 12 m [facility], were you homeless or living in a assisted (including now)? No 07/29/2024 Personal Safety Answer Date Recorded Have you ever been in or are you currently in a harmful physical or emotional relationship or is someone making you feel afraid or unsafe? Denies 10/16/2024 Comments No Sex and Gender Information Value Date Recorded Sex Assigned at Not on file Legal Sex Female 2:19 AM KNIFE MACHINE OPERATOR Gender Identity Not on file [...] ral N Livin g 9 9 Regino Pettit Masood Lea MD Complications:None Delivery Location:[facility] Main C ampus ([facility] L AND D PROCEDURE) 2023 34w 0d 0h 03m 0h 03m 1.92 kg (4 lb 3.7 oz) M C-Sec tion Combin ed Spinal /Epidu ral N Livin g 8 9 Morales Lau Masood Lea MD Complications:None Delivery Location:[facility] Main C ampus ([facility] L AND D PROCEDURE) Last Filed Vital Signs Vital Sign Reading Time Taken Comments Blood Pressure 120/81 11/03/2024 1:53 PM KNIFE MACHINE OPERATOR Pulse 116 11/03/2024 1:53 PM KNIFE MACHINE OPERATOR Temperature 35.9 C (96.7 F) 10/16/2024 9:28 AM KNIFE MACHINE OPERATOR Respiratory Rate 18 10/16/2024 11:0 0 AM KNIFE MACHINE OPERATOR Oxygen Saturation 97% 11/03/2024 1:53 PM KNIFE MACHINE OPERATOR Inhaled Oxygen Concentration - - Weight 111.5 kg (245 lb 12.8 oz) 11/03/2024 1:53 PM KNIFE MACHINE OPERATOR Height 167.6 cm (5' 6 ) 10/16/2024 9:28 AM KNIFE MACHINE OPERATOR Body Mass Index 39.67 10/16/2024 9:28 AM KNIFE MACHINE OPERATOR Plan of Treatment Health Maintenance Due Date Last Done Comments Regular Well Visit/Exam 18-64 2015 Covid-19 Vaccine () 06/05/2024 01/04/2021, 12/07/2020 Depression Screening 10/20/2025 10/20/2024, 07/28/2024, 05/18/2024 Cervical Cancer Screening 11/03/2025 11/03/2024 DTaP/Tdap/Td Vaccine (9 - Td or Tdap) 08/09/2034 08/09/2024, 09/20/2022, 07/03/2008, Additional history exists Hepatitis B Screening Completed 1995 , 1995, 1995 HPV Vaccines Completed 05/11/2013, 10/05, 04/25/2011 Hepatitis C Screening Completed 05/20/2024 Influenza Vaccine Completed 07/12/2024, , 06/15/2020, Additional history exists Varicella Vaccines Completed 09/21/2024, 1 10/28/2007, 04/27/2008 Pneumococcal vaccine <65 Aged Out No longer eligible based on patient's age to complete this topic Procedures Procedure Name Priority Date/Time Associated Diagnosis Comments PAP WITH REFLEX TO HIGH RISK HPV Routine 11/03/2024 4:37 PM KNIFE MACHINE OPERATOR Encounter for routine follow-up THINPREP PROCESSING (MOLECULAR COMPONENT) Routine 11/03/2024 4:37 PM KNIFE MACHINE OPERATOR Encounter for routine follow-up URINALYSIS, MICROSCOPIC ONLY STAT 10/16/2024 11:21 AM KNIFE MACHINE OPERATOR URINE CULTURE STAT 10/16/2024 11:21 AM KNIFE MACHINE OPERATOR URINALYSIS AND REFLEX TO MICROSCOPIC AND CULTURE STAT 10/16/2024 11:21 AM KNIFE MACHINE OPERATOR ECG 12-LEAD STAT 10/16/2024 10:36 AM KNIFE MACHINE OPERATOR EGFR Add On 10/16/2024 9:47 AM KNIFE MACHINE OPERATOR DIFFERENTIAL AUTO Add On 10/16/2024 9:4 7 AM KNIFE MACHINE OPERATOR COMPREHENSIVE METABOLIC PANEL Add-On 10/16/2024 9:47 AM KNIFE MACHINE OPERATOR CBC WITH AUTO DIFFERENTIAL Add-On 10/16/2024 9:47 AM KNIFE MACHINE OPERATOR BLEED SCREEN Timed 09/20/2024 4: 48 AM KNIFE MACHINE OPERATOR ABO/RH Timed 09/20/2024 4:48 AM KNIFE MACHINE OPERATOR CBC WITHOUT DIFFERENTIAL Routine 09/20/2024 4:48 AM KNIFE MACHINE OPERATOR RH IMMUNE GLOBULIN EVAL Timed 09/20/2024 4:48 AM KNIFE MACHINE OPERATOR SURGICAL PATHOLOGY Routine 09/19/2024 4: 06 PM KNIFE MACHINE OPERATOR ANESTHESIA EPIDURAL BLOCK Routine 09/19/2024 2:45 PM KNIFE MACHINE OPERATOR SECTION 09/19/2024 1:56 PM KNIFE MACHINE OPERATOR TIUP Case Notes PreE w/ SF and Multiple gestation EGFR Timed 09/18/2024 6:21 AM KNIFE MACHINE OPERATOR COMPREHENSIVE METABOLIC PANEL Timed 09/18/2024 6:21 AM KNIFE MACHINE OPERATOR CBC WITHOUT DIFFERENTIAL Timed 09/18/2024 6:21 AM KNIFE MACHINE OPERATOR TYPE AND SCREEN Timed 09/18/2024 6:21 AM KNIFE MACHINE OPERATOR NONSTRESS TEST Routine 09/17/2024 2:58 PM KNIFE MACHINE OPERATOR Preeclampsia, unspecified trimester 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 US OB FOLLOW UP IP Routine 09/15/2024 1:08 PM KNIFE MACHINE OPERATOR EGFR Timed 09/15/2024 6:17 AM KNIFE MACHINE OPERATOR COMPREHENSIVE METABOLIC PANEL Timed 09/15/2024 6:17 AM KNIFE MACHINE OPERATOR CBC WITHOUT DIFFERENTIAL Timed 09/15/2024 6:17 AM KNIFE MACHINE OPERATOR TYPE AND SCREEN Timed 09/15/2024 6:17 AM KNIFE MACHINE OPERATOR NONSTRESS TEST Routine 09/13/2024 5:10 PM KNIFE MACHINE OPERATOR Preeclampsia, unspecified trimester 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 EGFR Timed 09/12/2024 6:35 AM KNIFE MACHINE OPERATOR COMPREHENSIVE METABOLIC PANEL Timed 09/12/2024 6:35 AM KNIFE MACHINE OPERATOR CBC WITHOUT DIFFERENTIAL Timed 09/12/2024 6:35 AM KNIFE MACHINE OPERATOR TYPE AND SCREEN Timed 09/12/2024 6:35 AM KNIFE MACHINE OPERATOR EGFR Timed 09/09/2024 6:24 AM KNIFE MACHINE OPERATOR COMPREHENSIVE METABOLIC PANEL Timed 09/09/2024 6:24 AM KNIFE MACHINE OPERATOR CBC WITHOUT DIFFERENTIAL Timed 09/09/2024 6:24 AM KNIFE MACHINE OPERATOR TYPE AND SCREEN Timed 09/09/2024 6:24 AM KNIFE MACHINE OPERATOR US OB LIMITED IP Routine 09/08/2024 10:29 AM KNIFE MACHINE OPERATOR NONSTRESS TEST Routine 09/06/2024 8:38 PM KNIFE MACHINE OPERATOR Preeclampsia, unspecified trimester 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 EGFR Timed 09/06/2024 4:31 AM KNIFE MACHINE OPERATOR COMPREHENSIVE METABOLIC PANEL Timed 09/06/2024 4:31 AM KNIFE MACHINE OPERATOR CBC WITHOUT DIFFERENTIAL Timed 09/06/2024 4:31 AM KNIFE MACHINE OPERATOR TYPE AND SCREEN Timed 09/06/2024 4:31 AM KNIFE MACHINE OPERATOR GROUP B STREPTOCOCCUS CULTURE Routine 09/03/2024 10:29 AM KNIFE MACHINE OPERATOR EGFR Timed 09/03/2024 5:26 AM KNIFE MACHINE OPERATOR COMPREHENSIVE METABOLIC PANEL Timed 09/03/2024 5:26 AM KNIFE MACHINE OPERATOR CBC WITHOUT DIFFERENTIAL Timed 09/03/2024 5:26 AM KNIFE MACHINE OPERATOR TYPE AND SCREEN Timed 09/03/2024 5:26 AM KNIFE MACHINE OPERATOR ECG 12-LEAD Routine 09/02/2024 4:33 PM KNIFE MACHINE OPERATOR EGFR Timed 08/31/2024 6:20 AM KNIFE MACHINE OPERATOR COMPREHENSIVE METABOLIC PANEL Timed 08/31/2024 6:20 AM KNIFE MACHINE OPERATOR CBC WITHOUT DIFFERENTIAL Timed 08/31/2024 6:20 AM KNIFE MACHINE OPERATOR TYPE AND SCREEN Timed 08/31/2024 6:20 AM KNIFE MACHINE OPERATOR NONSTRESS TEST Routine 08/29/2024 2:32 PM KNIFE MACHINE OPERATOR Preeclampsia, unspecified trimester 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 NONSTRESS TEST Routine 08/28/2024 7:47 PM KNIFE MACHINE OPERATOR Preeclampsia, unspecified trimester 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 EGFR Timed 08/28/2024 6:00 AM KNIFE MACHINE OPERATOR COMPREHENSIVE METABOLIC PANEL Timed 08/28/2024 6:00 AM KNIFE MACHINE OPERATOR CBC WITHOUT DIFFERENTIAL Timed 08/28/2024 6:00 AM KNIFE MACHINE OPERATOR TYPE AND SCREEN Timed 08/28/2024 6:00 AM KNIFE MACHINE OPERATOR EGFR Timed 08/25/2024 6:19 AM KNIFE MACHINE OPERATOR COMPREHENSIVE METABOLIC PANEL Timed 08/25/2024 6:19 AM KNIFE MACHINE OPERATOR CBC WITHOUT DIFFERENTIAL Timed 08/25/2024 6:19 AM KNIFE MACHINE OPERATOR TYPE AND SCREEN Timed 08/25/2024 6:19 AM KNIFE MACHINE OPERATOR US OB FOLLOW UP IP Routine 08/24/2024 9:37 AM KNIFE MACHINE OPERATOR EGFR Timed 08/22/2024 6:02 AM KNIFE MACHINE OPERATOR COMPREHENSIVE METABOLIC PANEL Timed 08/22/2024 6:02 AM KNIFE MACHINE OPERATOR CBC WITHOUT DIFFERENTIAL Timed 08/22/2024 6:02 AM KNIFE MACHINE OPERATOR TYPE AND SCREEN Timed 08/22/2024 6:02 AM KNIFE MACHINE OPERATOR EGFR Timed 08/19/2024 6:25 AM KNIFE MACHINE OPERATOR COMPREHENSIVE METABOLIC PANEL Timed 08/19/2024 6:25 AM KNIFE MACHINE OPERATOR CBC WITHOUT DIFFERENTIAL Timed 08/19/2024 6:25 AM KNIFE MACHINE OPERATOR TYPE AND SCREEN Timed 08/19/2024 6:25 AM KNIFE MACHINE OPERATOR US OB LIMITED IP Routine 08/16/2024 8:35 AM KNIFE MACHINE OPERATOR ANTIBODY IDENTIFICATION Routine 08/16/2024 7:34 AM KNIFE MACHINE OPERATOR EGFR Timed 08/16/2024 6:15 AM KNIFE MACHINE OPERATOR THYROID FUNCTION CASCADE Routine 08/16/2024 6:15 AM KNIFE MACHINE OPERATOR COMPREHENSIVE METABOLIC PANEL Timed 08/16/2024 6:15 AM KNIFE MACHINE OPERATOR CBC WITHOUT DIFFERENTIAL Timed 08/16/2024 6:15 AM KNIFE MACHINE OPERATOR TYPE AND SCREEN Timed 08/16/2024 6:15 AM KNIFE MACHINE OPERATOR POCT GLUCOSE DEVICE Routine 08/14/2024 3 :06 PM KNIFE MACHINE OPERATOR ECG 12-LEAD Routine 08/13/2024 9:02 AM KNIFE MACHINE OPERATOR ANTIBODY IDENTIFICATION Routine 08/13/2024 7:42 AM KNIFE MACHINE OPERATOR EGFR Timed 08/13/2024 5:44 AM KNIFE MACHINE OPERATOR COMPREHENSIVE METABOLIC PANEL Timed 08/13/2024 5:44 AM KNIFE MACHINE OPERATOR CBC WITHOUT DIFFERENTIAL Timed 08/13/2024 5:44 AM KNIFE MACHINE OPERATOR TYPE AND SCREEN Timed 08/13/2024 5:44 AM KNIFE MACHINE OPERATOR RPR Routine 08/13/2024 5:44 AM KNIFE MACHINE OPERATOR HIV 1/2 ANTIBODY PLUS P24 ANTIGEN Routine 08/13/2024 5:44 AM KNIFE MACHINE OPERATOR HEPATITIS C ANTIBODY Routine 05/20/2024 2:47 PM CDT Encounter for supervision of normal first in first trimester 11 weeks gestation of from Last 3 Months or Most Recently Relevant to Health Maintenance Results * ThinPrep processing (Molecular component) (11/03/2024 4:37 PM KNIFE MACHINE OPERATOR) ThinPrep processing (Molecular component) Specimen received for processing. [facility] Endocervical 11/03/2024 4:37 PM KNIFE MACHINE OPERATOR 11/07/2024 8:41 AM KNIFE MACHINE OPERATOR Jada Ngo NP LAB BODY FLUIDS AND STOOLS ORDERABLES Final Result [facility] [place] [address] [facility] * Pap with reflex to High Risk HPV and Genotyping (Cytology Component) (11/03/2024 4:37 PM KNIFE MACHINE OPERATOR) Thin prep (Pap test) 11/03/2024 4:37 PM KNIFE MACHINE OPERATOR 11/03/2024 5:54 PM KNIFE MACHINE OPERATOR Narrative PATHOLOGY [facility] - 11/11/2024 3:38 PM KNIFE MACHINE OPERATOR EPIC results best viewed via link to PDF [facility] Nicole Brown [facility] [place] [address] Note to Patients: This report may contain [...] can answer questions and explain the details. CYTOPATHOLOGY REPORT FINAL Patient Name: DINORA BEE Gender: Bhumi : 1995 (Age: 29) Address: [address] [place] [phone] Hospital #: [id number] Service: REPAIRER KILN CAR Location: Patient Type: [facility] SPECIMEN Taken: 11/03/2024 Received: 11/03/2024 Accessioned: 11/07/2024 Reported: 11/11/2024 Physician(s): CORBY Billings FINAL INTERPRETATION SOURCE OF SPECIMEN Liquid based Thin Prep pap with Reflex HPV: STATEMENT OF ADEQUACY - Satisfactory for evaluation - Endocervical cells/transformation zone sample absent GENERAL CATEGORIZATION: - Negative for squamous intraepithelial lesion or malignancy lwl/11/11/2024 15:38 SHANTEL Ely MS(ASCP)FREDRICK Report Electronically Reviewed and Signed Out By SHANTEL Ely MS(ASCP)FREDRICK 11/11/2024 15:38:05 Cervicovaginal Cytology (Pap Test) Disclaimer: The Pap test is a screening test used to detect cervical cancer and its precursors; it is not a diagnostic procedure. False negative and false positive results do occur. Pap test results should be interpreted in the context of pertinent clinical information and biopsy results as indicated. [facility] Clinical Laboratory Improvement Amendments (CLIA) mandate that cytologic and histologic results be correlated for laboratory quality systems technician & improvement standards. FOR ALL HIGH-GRADE CASES we request submission of follow-up histological material and/or reports that have not been previously provided so that we may fulfill said required standards. Gross Description A. Liquid based Thin Prep pap with Reflex HPV: Cervical/vaginal - Screening ThinPrep Clinical Diagnosis and History Last Menstrual Period: Not Provided. Menstrual History: The patient is a 29 year old female with routine. Report Images and scanned documents, if included only viewable in PDF version The performance characteristics of some immunohistochemical stains, in-situ hybridization and fluorescence in-situ hybridization tests and immunophenotyping by flow cytometry cited in this report (if any) were determined by the Surgical Pathology Department at [facility] as part of an ongoing food quality technician program and in compliance with federally mandated regulations drawn from the Clinical Laboratory Improvement Act of 1988 (CLIA '88). Some of these tests rely on the use of analyte specific reagents and are subject to specific labeling requirements by the US Food and Drug Administration. Such diagnostic tests may only be performed in a facility that is certified by the Department of Health and Human Services as a high complexity laboratory under CLIA '88. The FDA has determined that such clearance or approval is not necessary. This test is used for clinical purposes. It should not be regarded as investigational or for research. Nevertheless, federal rules concerning the medical use of analyte specific reagents require that the following disclaimer be attached to the report: This test was developed and its performance characteristics determined by the Surgical Pathology Department of [facility]. It has not been cleared or approved by the U. S. Food and Drug Administration. Jada Ngo NP LAB CYTOLOGY ORDERA BLES Final Result PATHOLOGY [facility] 3rd Floor [place], [place] [phone] * (ABNORMAL) Urinalysis reflex to microscopic and culture Urine (10/16/2024 11:21 AM KNIFE MACHINE OPERATOR) Color, ur Yellow Yellow Clarity, ur Clear Clear [facility] ([place]) Specific gravity, ur 1.020 1.003 - 1.030 [facility] ([place]) pH, urine 6.5 [facility] ([place]) Comment: Interpretive Data U rine pH is affected by diet, medications, systemic acid-base disturbances, and renal tubular function. pH may affect urinary stone formation. For example, urine pH below 6.0 may help reduce the tendency for calcium phosphate stones and pH greater than 6.0 may reduce the tendency for uric acid stone formation. Source: [facility] Current Interpretive Data was last revised on [...] MH ([place]IE) Leukocyte esterase, ur 3+(A) Negative [facility] ([place]) UA reflex comment Reflex to microscopic UA will be performed. [facility] ([place]) Urine 10/16/2024 11:2 1 AM KNIFE MACHINE OPERATOR 10/16/2024 11:23 AM KNIFE MACHINE OPERATOR Satnam Nair MD LAB MICROBIOLOGY - GENERAL O RDERABLES Final Result Performing Organization Address [facility] Co de Phone Number [facility] ([place]) 1 [facility] [employer] [place] [address] * (ABNORMAL) Urinalysis, microscopic only (10/16/2024 11:21 AM KNIFE MACHINE OPERATOR) WBC, ur 11-20(A) 0 - 5 /HPF RBC, ur >50(A) 0 - 2 /HPF [facility] ([place]) Epithelial cells, squamous, ur 1-5 0 - 5 /HPF [facility] ([place]) Bacteria, ur Trace(A) [facility] ([place]) Mucous, ur Present(A) [facility] A ([place]) Culture Reflex Comment Reflex to urine culture will be performed. [facility] ([place]) Urine 10/16/2024 11:2 1 AM KNIFE MACHINE OPERATOR 10/16/2024 11:23 AM KNIFE MACHINE OPERATOR Satnam Nair MD LAB URINE ORDERABLES Final R esult Performing Organization Address City/[facility]/ZIP Co de Phone Number [facility] ([place]) 1 [facility] [place] [address] * Urine culture Urine (10/16/2024 11:21 AM KNIFE MACHINE OPERATOR) Report Final Report: Less than 100,000 colonies/mL (clinically insignificant growth based on current clinical standards) Comment:Testing performed by : [facility], 1 [facility], [place]., [address] Organism (CLINICALLY INSIGNIFICANT GROWTH [facility] ([place]) Urine 10/16/2024 11:2 1 AM KNIFE MACHINE OPERATOR 10/16/2024 2:00 PM KNIFE MACHINE OPERATOR Narrative BIA [facility] ([place]EDDIE) - 10/17/2024 3:36 PM KNIFE MACHINE OPERATOR Urine culture reflexed based upon urinalysis results. Testing performed by [facility] ([phone]) Satnam Nair MD LAB MICROBIOLOGY - GENERAL O RDERABLES Final Result BIA [facility]) 1 [facility] Department [place] [address] * ECG 12 lead (10/16/2024 10:36 AM KNIFE MACHINE OPERATOR) 10/16/2024 10:3 6 AM KNIFE MACHINE OPERATOR Narrative [facility] - 10/17/2024 8:41 AM KNIFE MACHINE OPERATOR Vent Rate: 65 bpm RR Interval: 922 msec WY Interval: 147 msec QRS Duration: 101 msec QT Interval: 408 msec QTC Interval: 419 msec P-R-T E[place]: 54 - 21 - 47 degrees IMPRESSION: SINUS RHYTHM NORMAL ECG Electronically Signed By: Dallas Ahn MD Satnam Nair MD ECG ORDERABLES Final Result Performing Organization Address City/[facility]/ZIP Co de Phone Number [employer] [facility] * eGFR (10/16/2024 9:47 AM KNIFE MACHINE OPERATOR) eGFR >90 >=60 mL/min/1. 73 m2 Comment: Interpretive Data Reference Interval Normal >/= 90 mL/min/1.73m2 Mildly decreased* 60 - 89 mL/min/1.73m2 Mildly to moderately decreased 45 - 59 mL/min/1.73m2 Moderately to severely decreased 30 - 44 mL/min/1.73m2 Severely decreased 15 - 29 mL/min/1.73m2 Kidney Failure < 15 mL/min/1.73m2 *Relative to young adult level Estimated glomerular [...] last reviewed 2021. Blood 10/16/2024 9:47 AM KNIFE MACHINE OPERATOR 10/16/2024 10:32 AM KNIFE MACHINE OPERATOR Satnam Nair MD LAB BLOOD ORDERABLES Final R esult [facility] ([place]) 1 [facility] Department [place] [address] * Differential, auto (10/16/2024 9:47 AM KNIFE MACHINE OPERATOR) Neutrophil abs 2.8 1.5 - 6.5 K/cumm Imm gran abs 0.0 0.0 - 0.1 K/cumm [facility] ([place]) Lymphocyte abs 1.3 0.8 - 3.3 K/cumm [facility] ([place]) Monocyte abs 0.3 0.2 - 0.8 K/cumm [...] revised on 2018. Blood 10/16/2024 9:47 AM KNIFE MACHINE OPERATOR 10/16/2024 10:32 AM KNIFE MACHINE OPERATOR Satnam Nair MD LAB BLOOD ORDERABLES Final R esult [facility] ([place]) 1 [facility] Department [place] [address] * CBC with auto differential (10/16/2024 9:47 AM KNIFE MACHINE OPERATOR) WBC 4.5 3.8 - 9.9 K/cumm Hgb [...] [facility] ([place]) Blood 10/16/2024 9:47 AM KNIFE MACHINE OPERATOR 10/16/2024 10:32 AM KNIFE MACHINE OPERATOR Satnam Nair MD LAB BLOOD ORDERABLES Final R esult [facility] ([place]) 1 [facility] Department [place] [address] * Comprehensive metabolic panel (10/16/2024 9:47 AM KNIFE MACHINE OPERATOR) Sodium 140 135 - 145 mmol/L Potassium, [...] >/= 126 mg/dl is diagnostic for diabetes. Fasting is defined as no caloric intake [...] (FREDDIE) ALT 8 7 - 45 Units/L [facility] ([place]) AST 10 10 - 45 Units/L [facility] ([place]) Blood 10/16/2024 9:47 AM KNIFE MACHINE OPERATOR 10/16/2024 10:32 AM KNIFE MACHINE OPERATOR us Satnam Nair MD LAB BLOOD ORDERABLES Final R esult Performing Organization Address City/[facility]/ZIP Co de Phone Number [facility] (FREDDIE) 1 [facility] [place] [address] * Rh Immune Globulin Eval (09/20/2024 4:48 AM KNIFE MACHINE OPERATOR) RhIg Administration 1 vial of Rh Immune Globulin (300 mcg dose) RhIg Eligible Yes, eligible [facility] Blood 09/20/2024 4:48 AM KNIFE MACHINE OPERATOR 09/20/2024 5:03 AM KNIFE MACHINE OPERATOR Narrative [facility] - 09/20/2024 5:36 AM KNIFE MACHINE OPERATOR Number of weeks ?->20 weeks or greater antibody screen result:->Negative Rhogam given?->Given Date Given?->08/01/24 Number of vials requested:->1 us Sara Eng MD LAB BLOOD BANK TEST ORDERABL ES Final Result Performing Organization Address [facility] de Phone Number [facility] [place] [address] * Bleed Screen (09/20/2024 4:48 AM KNIFE MACHINE OPERATOR) Bleed Screen Negative Blood 09/20/2024 4:48 AM KNIFE MACHINE OPERATOR 09/20/2024 5:03 AM KNIFE MACHINE OPERATOR Rey Quinonez MD LAB BLOOD BANK TEST ORDERABLE S Final Result Performing Organization Address [facility] Co de Phone Number [facility] [place] [address] * ABO/Rh (09/20/2024 4:48 AM KNIFE MACHINE OPERATOR) ABO Rh O Negative Blood 09/20/2024 4:48 AM KNIFE MACHINE OPERATOR 09/20/2024 5:03 AM KNIFE MACHINE OPERATOR us Rey Quinonez MD LAB BLOOD BANK TEST ORDERABLE S Final Result Performing Organization Address City/[facility]/ZIP Co de Phone Number [facility] Department [place] [place] [address] * (ABNORMAL) CBC without differential (09/20/2024 4:48 AM KNIFE MACHINE OPERATOR) Pathologist [facility] WBC 10.3(H) 3.8 - 9.9 K/cumm Hgb 9.7(L) 11.9 - 15.5 g/dL [facility] Hct 28.4(L) 35.6 - 45.5 % [facility] Plt 230 150 - 400 K/cumm [facility] MPV 10.8 9.1 - 12.3 fL [facility] RBC 3.22(L) 3.90 - 5.20 M/cumm [facility] MCV 88.2 81.3 - 96.4 fL [facility] MCH 30.1 27.1 - 33.3 pg [facility] MCHC 34.2 32.3 - 35.7 g/dL [facility] RDW CV 13.9 11.1 - 14.9 % [facility] RDW SD 44.6 35.7 - 48.1 fL [facility] NRBC abs 0.00 0.00 - 0.01 K/cumm [facility] Blood 09/20/2024 4:48 AM KNIFE MACHINE OPERATOR 09/20/2024 5:11 AM KNIFE MACHINE OPERATOR us Sara Eng MD LAB BLOOD ORDERABLES Final R esult Performing Organization Address City/[facility]/ZIP Co de Phone Number [facility] [place] [place] [place] [address] * Surgical pathology (09/19/2024 4:06 PM KNIFE MACHINE OPERATOR) Tissue (Placenta) 09/19/2024 4:06 PM KNIFE MACHINE OPERATOR 09/20/2024 8:37 AM KNIFE MACHINE OPERATOR Narrative PATHOLOGY [facility] - 09/26/2024 2:16 PM KNIFE MACHINE OPERATOR EPIC results best viewed via link to PDF [facility] Brown [facility] [place] [address] Note to Patients: This report may contain [...] details. SURGICAL PATHOLOGY REPORT FINAL Patient Name: DINORA BEE Gender: F : 1995 (Age: 29) Address: [address] [place] [address] Hospital #: [id number] Taken:09/19/2024 Received:09/20/2024 Reported: 09/26/2024 Patient Type: [facility] Inpatient Service: Obstetrics Location: [place] [address] Physician(s): MD Sara Parker M.D. Diagnosis: Placenta, delivery - 662 grams diamnionic, monochorionic, pre-term twin placenta - Acute atherosis - Accelerated villous maturation -Trivascular cords with no histopathologic abnormalities formerly [facility], 1928–1983/09/26/2024 14:16 By this signature, I attest that the above diagnosis is based upon my personal examination of the slides(and/or other material indicated in the diagnosis). Natasha Chamberlain M.D. Report Electronically Reviewed and Signed Out By Natasha Chamberlain M.D. 09/26/2024 14:16:08 History: The patient is a 29-year-old woman who presents at 34 weeks 0 days with preeclampsia with severe features and with monochorionic diamniotic twin intrauterine . Operative procedure: section. Specimen(s) Received: A: Placenta, 34 weeks, 0 days Gross Description: Received in formalin and labeled with the patient's identifiers is a 662 g, 20.5 x 18 x 3 cm fused twin placenta with a marginally inserted, thin and translucent membranes and a central, thin and translucent dividing membrane. The central dividing membrane split the disc into two roughly equal halves. Arbitrarily assigned twin A (cord with clamp) has an attached 17 x 1.1 cm trivessel umbilical cord which inserts at the periphery and arbitrarily assigned twin B (cord without clamp) has an attached 11.5 x 1.2 cm trivessel cord which inserts 4 cm from the nearest disc edge. An additional segment of cord without clamp is provided and measures up to 22 x 1.2 cm. No additional cord segment with a clamp is provided. The surfaces are blue-mayberry, glistening with engorged vessels radiating from the cord insertion site. The maternal surface displays focally disrupted but apparently complete cotyledons with a small amount of loosely adherent clot. Sections through the disc homogeneous red and spongy parenchyma. No discrete lesions or infarcts are grossly identified. Plate Cutter sections are submitted: A1 = arbitrarily assigned twin A, cord and membranes; A2-4 = twin A, territory service representative parenchyma; A5 = common membrane and T-zone; A6 = arbitrarily assigned twin B, cord and membranes; A7-9 = twin B, territory service representative parenchyma. Jar 3. sxv/09/21/2024 11:11 PA(s): Catalino Hernandez MS, PA ([facility])CM By this signature, I attest that the above diagnosis is based upon my personal examination of the slides(and/or other material). Addenda/Procedures The performance characteristics of some immunohistochemical stains, fluorescence in-situ hybridization tests and immunophenotyping by flow cytometry cited in this report (if any) were determined by the Surgical Pathology and Flow Cytometry Departments at [facility] as part of an ongoing food quality technician program and in compliance with federally mandated regulations drawn from the Clinical Laboratory Improvement Act of 1988 (CLIA '88). Some of these tests rely on the use of analyte specific reagents and are subject to specific labeling requirements by the US Food and Drug Administration. Such diagnostic tests may only be performed in a facility that is certified by the Department of Health and Human Services as a high complexity laboratory under CLIA '88. The FDA has determined that such clearance or approval is not necessary. This test is used for clinical purposes. It should not be regarded as investigational or for research. Nevertheless, federal rules concerning the medical use of analyte specific reagents require that the following disclaimer be attached to the report: This test was developed and its performance characteristics determined by the Surgical Pathology and Flow Cytometry Departments of [facility]. It has not been cleared or approved by the U. S. Food and Drug Administration. IMAGES AND SCANNED DOCUMENTS, IF INCLUDED, ONLY VIEWABLE IN PDF VERSION OF REPORT us Sara Eng MD LAB PATHOLOGY ORDERABLES Fin al Result PATHOLOGY [facility] 3rd Floor [place], [place] [phone] * Epidural Block (09/19/2024 2:45 PM KNIFE MACHINE OPERATOR) Narrative Abena Denton MD - 09/19/2024 2:45 PM KNIFE MACHINE OPERATOR Abena Denton MD 09/19/2024 2:50 PM Epidural Block Patient location: OR Reason [...] Final Result * eGFR (09/18/2024 6:21 AM KNIFE MACHINE OPERATOR) eGFR >90 >=60 mL/min/1. 73 m2 Comment: Interpretive Data Reference Interval Normal >/= 90 mL/min/1.73m2 Mildly decreased* 60 - 89 mL/min/1.73m2 Mildly to moderately decreased 45 - 59 mL/min/1.73m2 Moderately to severely decreased 30 - 44 mL/min/1.73m2 Severely decreased 15 - 29 mL/min/1.73m2 Kidney Failure < 15 mL/min/1.73m2 *Relative to young adult level Estimated glomerular [...] last reviewed 2021. Blood 09/18/2024 6:21 AM KNIFE MACHINE OPERATOR 09/18/2024 6:32 AM KNIFE MACHINE OPERATOR us Anastasia Amaro MD LAB BLOOD ORDERABLES Final Result [facility] One [facility] Department [place] [address] * (ABNORMAL) CBC without differential (09/18/2024 6:21 AM KNIFE MACHINE OPERATOR) [facility] WBC 10.0(H) 3.8 - 9.9 K/cumm Hgb 11.6(L) 11.9 - 15.5 g/dL [facility] Hct 34.0(L) 35.6 - 45.5 % [facility] Plt 250 150 - 400 K/cumm [facility] MPV 11.0 9.1 - 12.3 fL [facility] RBC 3.92 3.90 - 5.20 M/cumm [facility] MCV 86.7 81.3 - 96.4 fL [facility] MCH 29.6 27.1 - 33.3 pg [facility] MCHC 34.1 32.3 - 35.7 g/dL [facility] RDW CV 13.7 11.1 - 14.9 % [facility] RDW SD 43.1 35.7 - 48.1 fL [facility] NRBC abs 0.00 0.00 - 0.01 K/cumm [facility] Blood 09/18/2024 6:21 AM KNIFE MACHINE OPERATOR 09/18/2024 6:32 AM KNIFE MACHINE OPERATOR Anastasia Amaro MD LAB BLOOD ORDERABLES Final Result Performing Organization Address City/[facility] Co de Phone Number [facility] Department [place] [address] * Type and screen (09/18/2024 6:21 AM KNIFE MACHINE OPERATOR) [facility] Abiodun, indirect Negative ABO Rh O Negative [facility] Blood 09/18/2024 6:21 AM KNIFE MACHINE OPERATOR 09/18/2024 6:35 AM KNIFE MACHINE OPERATOR Narrative [facility] - 09/18/2024 7:42 AM KNIFE MACHINE OPERATOR Has the patient had Daratumumab or Isatuximab in the past 6 months?->Unknown Anastasia Amaro MD LAB BLOOD BANK TEST ORDERA BLES Final Result Performing Organization Address [facility] Co de Phone Number [facility] Department [place] [address] * (ABNORMAL) Comprehensive metabolic panel (09/18/2024 6:21 AM KNIFE MACHINE OPERATOR) [facility] Sodium 134(L) 135 - 145 mmol/L Potassium, pl 3.8 3.3 - 4.9 mmol/L [facility] Chloride 105 97 - 110 mmol/L [facility] CO2 23 22 - 32 mmol/L [facility] Anion gap 6 2 - 15 mmol/L [facility] BUN 9 6 - 25 mg/dL [facility] Creatinine 0.69 0.60 - 1.10 mg/dL [facility] Glucose 68(L) 70 - 199 mg/dL [facility] Comment: Interpretive Data Fasting glucose >/= 126 mg/dl is diagnostic for diabetes. Fasting is defined as no caloric intake [...] Calcium 9.0 8.5 - 10.3 mg/dL [facility] Bilirubin, total 0.2 0.1 - 1.2 mg/dL [facility] Protein, pl 6.3(L) 6.5 - 8.5 g/dL [facility] Albumin 3.0(L) 3.5 - 5.0 g/dL [facility] Alk phos 125 40 - 130 Units/L [facility] ALT 14 7 - 45 Units/L [facility] AST 16 10 - 45 Units/L [facility] Blood 09/18/2024 6:21 AM KNIFE MACHINE OPERATOR 09/18/2024 6:32 AM KNIFE MACHINE OPERATOR Anastasia Amaro MD LAB BLOOD ORDERABLES Final Result [facility] One [facility] Department [place] [address] * nonstress test (09/17/2024 2:58 PM KNIFE MACHINE OPERATOR) Narrative Sandra Christy MD - 09/17/2024 2:58 PM KNIFE MACHINE OPERATOR Joellen Schilling MD 09/17/2024 4:04 PM nonstress test Date/Time: 09/17/2024 2:58 PM Performed by: Maureen Calix MD Authorized by: Ana M Rogers MD us Ana M Rogers MD OB GYNE ORDERABLES Fi nal Result * US Ob Follow Up (09/15/2024 1:08 PM KNIFE MACHINE OPERATOR) Fetus# Fetus1 VIEWPOINT Estimated Weight 1,709 g&grams VIEWPOINT Placenta Details anterior VIEWPOINT Presentation Vertex; Maternal right- low VIEWPOINT Fetus# Fetus2 VIEWPOINT Estimated Weight 2,585 g&grams VIEWPOINT Placenta Details anterior VIEWPOINT Presentation Vertex; Maternal left- high VIEWPOINT Anatomical Region Laterality Modality Abdomen N/A Ultrasound 09/15/2024 1:08 PM KNIFE MACHINE OPERATOR Impressions 09/15/2024 2:24 PM KNIFE MACHINE OPERATOR Diamniotic (presumed MCDA) TIUP at 33w33d who is admitted for preE with severe features who presents for growth US was previously determined to be monochorionic by the [facility] practice. A thin dividing membrane and [...] to be [facility]. A thin dividing membrane and single [...] R esult * eGFR (09/15/2024 6:17 AM KNIFE MACHINE OPERATOR) eGFR >90 >=60 mL/min/1. 73 m2 Comment: Interpretive Data Reference Interval Normal >/= 90 mL/min/1.73m2 Mildly decreased* 60 - 89 mL/min/1.73m2 Mildly to moderately decreased 45 - 59 mL/min/1.73m2 Moderately to severely decreased 30 - 44 mL/min/1.73m2 Severely decreased 15 - 29 mL/min/1.73m2 Kidney Failure < 15 mL/min/1.73m2 *Relative to young adult level Estimated glomerular [...] last reviewed 2021. Blood 09/15/2024 6:17 AM KNIFE MACHINE OPERATOR 09/15/2024 6:31 AM KNIFE MACHINE OPERATOR us Anastasia Amaro MD LAB BLOOD ORDERABLES Final Result [facility] [place] [address] * (ABNORMAL) CBC without differential (09/15/2024 6:17 AM KNIFE MACHINE OPERATOR) WBC 10.1(H) 3.8 - 9.9 K/cumm Hgb 11.7(L) 11.9 - 15.5 g/dL [facility] Hct 34.6(L) 35.6 - 45.5 % [facility] Plt 253 150 - 400 K/cumm [facility] MPV 11.2 9.1 - 12.3 fL [facility] RBC 3.94 3.90 - 5.20 M/cumm [facility] MCV 87.8 81.3 - 96.4 fL [facility] MCH 29.7 27.1 - 33.3 pg [facility] MCHC 33.8 32.3 - 35.7 g/dL [facility] RDW CV 13.8 11.1 - 14.9 % [facility] RDW SD 44.1 35.7 - 48.1 fL [facility] NRBC abs 0.00 0.00 - 0.01 K/cumm [facility] Blood 09/15/2024 6:17 AM KNIFE MACHINE OPERATOR 09/15/2024 6:31 AM KNIFE MACHINE OPERATOR Anastasia Amaro MD LAB BLOOD ORDERABLES Final Result Performing Organization Address [facility] Co de Phone Number [facility] One [facility] [place] [address] * Type and screen (09/15/2024 6:17 AM KNIFE MACHINE OPERATOR) [facility] Abiodun, indirect Negative Comment:Patient has previous antibody history ABO Rh O Negative [facility] Blood 09/15/2024 6:17 AM KNIFE MACHINE OPERATOR 09/15/2024 6:30 AM KNIFE MACHINE OPERATOR Narrative [facility] - 09/15/2024 7:57 AM KNIFE MACHINE OPERATOR Has the patient had Daratumumab or Isatuximab in the past 6 months?->Unknown Anastasia Amaro MD LAB BLOOD BANK TEST ORDERA BLES Final Result Performing Organization Address [facility] de Phone Number [facility] Department [place] [address] * (ABNORMAL) Comprehensive metabolic panel (09/15/2024 6:17 AM KNIFE MACHINE OPERATOR) [facility] Sodium 139 135 - 145 mmol/L Potassium, pl 3.5 3.3 - 4.9 mmol/L [facility] Chloride 106 97 - 110 mmol/L [facility] CO2 21(L) 22 - 32 mmol/L [facility] Anion gap 12 2 - 15 mmol/L [facility] BUN 8 6 - 25 mg/dL [facility] Creatinine 0.66 0.60 - 1.10 mg/dL [facility] Glucose 106 70 - 199 mg/dL [facility] Comment: Interpretive Data Fasting glucose >/= 126 mg/dl is diagnostic for diabetes. Fasting is defined as no caloric intake [...] Calcium 9.0 8.5 - 10.3 mg/dL [facility] Bilirubin, total <0.2 0.1 - 1.2 mg/dL [facility] Protein, pl 6.4(L) 6.5 - 8.5 g/dL [facility] Albumin 3.0(L) 3.5 - 5.0 g/dL [facility] Alk phos 124 40 - 130 Units/L [facility] ALT 19 7 - 45 Units/L [facility] AST 20 10 - 45 Units/L [facility] Blood 09/15/2024 6:17 AM KNIFE MACHINE OPERATOR 09/15/2024 6:31 AM KNIFE MACHINE OPERATOR us Anastasia Amaro MD LAB BLOOD ORDERABLES Final Result [facility] [place] [address] * nonstress test (09/13/2024 5:10 PM KNIFE MACHINE OPERATOR) Narrative Sandra Christy MD - 09/13/2024 5:10 PM KNIFE MACHINE OPERATOR BolaAnastasia Bay MD 09/13/2024 5:21 PM 29 y.o. at 33w1d a/f preeclampsia [...] nal Result * eGFR (09/12/2024 6:35 AM KNIFE MACHINE OPERATOR) eGFR >90 >=60 mL/min/1. 73 m2 Comment: Interpretive Data Reference Interval Normal >/= 90 mL/min/1.73m2 Mildly decreased* 60 - 89 mL/min/1.73m2 Mildly to moderately decreased 45 - 59 mL/min/1.73m2 Moderately to severely decreased 30 - 44 mL/min/1.73m2 Severely decreased 15 - 29 mL/min/1.73m2 Kidney Failure < 15 mL/min/1.73m2 *Relative to young adult level Estimated glomerular [...] last reviewed 2021. Blood 09/12/2024 6:35 AM KNIFE MACHINE OPERATOR 09/12/2024 6:51 AM KNIFE MACHINE OPERATOR us Anastasia Amaro MD LAB BLOOD ORDERABLES Final Result [facility] [place] [address] * (ABNORMAL) CBC without differential (09/12/2024 6:35 AM KNIFE MACHINE OPERATOR) WBC 10.0(H) 3.8 - 9.9 K/cumm Hgb 11.8(L) 11.9 - 15.5 g/dL [facility] Hct 35.3(L) 35.6 - 45.5 % [facility] Plt 226 150 - 400 K/cumm [facility] MPV 11.2 9.1 - 12.3 fL [facility] RBC 3.97 3.90 - 5.20 M/cumm [facility] MCV 88.9 81.3 - 96.4 fL [facility] MCH 29.7 27.1 - 33.3 pg [facility] MCHC 33.4 32.3 - 35.7 g/dL [facility] RDW CV 13.8 11.1 - 14.9 % [facility] RDW SD 44.5 35.7 - 48.1 fL [facility] NRBC abs 0.02(H) 0.00 - 0.01 K/cumm [facility] Blood 09/12/2024 6:35 AM KNIFE MACHINE OPERATOR 09/12/2024 6:52 AM KNIFE MACHINE OPERATOR Anastasia Amaro MD LAB BLOOD ORDERABLES Final Result Performing Organization Address [facility] de Phone Number [facility] Department [place] [address] * Type and screen (09/12/2024 6:35 AM KNIFE MACHINE OPERATOR) Pathologist [facility] ABO Rh O Negative Abiodun, indirect Negative [facility] Comment:Patient has previous antibody history Blood 09/12/2024 6:35 AM KNIFE MACHINE OPERATOR 09/12/2024 6:48 AM KNIFE MACHINE OPERATOR Narrative [facility] - 09/12/2024 7:49 AM KNIFE MACHINE OPERATOR Has the patient had Daratumumab or Isatuximab in the past 6 months?->Unknown Anastasia Amaro MD LAB BLOOD BANK TEST ORDERA BLES Final Result Performing Organization Address [facility] de Phone Number [facility] [place] [address] * (ABNORMAL) Comprehensive metabolic panel (09/12/2024 6:35 AM KNIFE MACHINE OPERATOR) [facility] Sodium 139 135 - 145 mmol/L Potassium, pl 3.8 3.3 - 4.9 mmol/L [facility] Chloride 107 97 - 110 mmol/L [facility] CO2 22 22 - 32 mmol/L [facility] Anion gap 10 2 - 15 mmol/L [facility] BUN 6 6 - 25 mg/dL [facility] Creatinine 0.64 0.60 - 1.10 mg/dL [facility] Glucose 69(L) 70 - 199 mg/dL [facility] Comment: Interpretive Data Fasting glucose >/= 126 mg/dl is diagnostic for diabetes. Fasting is defined as no caloric intake [...] 2022. Calcium 8.8 8.5 - 10.3 mg/dL [facility] Bilirubin, total <0.2 0.1 - 1.2 mg/dL [facility] Protein, pl 6.4(L) 6.5 - 8.5 g/dL [facility] Albumin 3.1(L) 3.5 - 5.0 g/dL [facility] Alk phos 122 40 - 130 Units/L [facility] ALT 22 7 - 45 Units/L [facility] AST 23 10 - 45 Units/L [facility] Blood 09/12/2024 6:35 AM KNIFE MACHINE OPERATOR 09/12/2024 6:51 AM KNIFE MACHINE OPERATOR Anastasia Amaro MD LAB BLOOD ORDERABLES Final Result [facility] [place] [address] * eGFR (09/09/2024 6:24 AM KNIFE MACHINE OPERATOR) eGFR >90 >=60 mL/min/1. 73 m2 Comment: Interpretive Data Reference Interval Normal >/= 90 mL/min/1.73m2 Mildly decreased* 60 - 89 mL/min/1.73m2 Mildly to moderately decreased 45 - 59 mL/min/1.73m2 Moderately to severely decreased 30 - 44 mL/min/1.73m2 Severely decreased 15 - 29 mL/min/1.73m2 Kidney Failure < 15 mL/min/1.73m2 *Relative to young adult level Estimated glomerular [...] last reviewed 2021. Blood 09/09/2024 6:24 AM KNIFE MACHINE OPERATOR 09/09/2024 6:52 AM KNIFE MACHINE OPERATOR Anastasia Amaro MD LAB BLOOD ORDERABLES Final Result Performing Organization Address [facility] Co de Phone Number [facility] [place] [address] * (ABNORMAL) CBC without differential (09/09/2024 6:24 AM KNIFE MACHINE OPERATOR) WBC 8.6 3.8 - 9.9 K/cumm Hgb 10.9(L) 11.9 - 15.5 g/dL [facility] Hct 33.1(L) 35.6 - 45.5 % [facility] Plt 239 150 - 400 K/cumm [facility] MPV 11.0 9.1 - 12.3 fL [facility] RBC 3.77(L) 3.90 - 5.20 M/cumm [facility] MCV 87.8 81.3 - 96.4 fL [facility] MCH 28.9 27.1 - 33.3 pg [facility] MCHC 32.9 32.3 - 35.7 g/dL [facility] RDW CV 13.8 11.1 - 14.9 % [facility] RDW SD 43.8 35.7 - 48.1 fL [facility] NRBC abs 0.00 0.00 - 0.01 K/cumm [facility] Blood 09/09/2024 6:24 AM KNIFE MACHINE OPERATOR 09/09/2024 6:52 AM KNIFE MACHINE OPERATOR Anastasia Amaro MD LAB BLOOD ORDERABLES Final Result Performing Organization Address [facility]/ZIP Co de Phone Number [facility] [place] [address] * Type and screen (09/09/2024 6:24 AM KNIFE MACHINE OPERATOR) Pathologist [facility] ABO Rh O Negative Abiodun, indirect Negative [facility] Comment:Patient has previous antibody history Blood 09/09/2024 6:24 AM KNIFE MACHINE OPERATOR 09/09/2024 7:19 AM KNIFE MACHINE OPERATOR Narrative [facility] - 09/09/2024 8:51 AM KNIFE MACHINE OPERATOR Has the patient had Daratumumab or Isatuximab in the past 6 months?->Unknown us Anastasia Amaro MD LAB BLOOD BANK TEST ORDERA BLES Final Result [facility] [place] [address] * (ABNORMAL) Comprehensive metabolic panel (09/09/2024 6:24 AM KNIFE MACHINE OPERATOR) Pathologist [facility] Sodium 141 135 - 145 mmol/L Potassium, pl 3.8 3.3 - 4.9 mmol/L [facility] Chloride 108 97 - 110 mmol/L [facility] CO2 22 22 - 32 mmol/L [facility] Anion gap 11 2 - 15 mmol/L [facility] BUN 8 6 - 25 mg/dL [facility] Creatinine 0.75 0.60 - 1.10 mg/dL [facility] Glucose 70 70 - 199 mg/dL [facility] Comment: Interpretive Data Fasting glucose >/= 126 mg/dl is diagnostic for diabetes. Fasting is defined as no caloric intake [...] Calcium 8.9 8.5 - 10.3 mg/dL [facility] Bilirubin, total <0.2 0.1 - 1.2 mg/dL [facility] Protein, pl 6.2(L) 6.5 - 8.5 g/dL [facility] Albumin 3.2(L) 3.5 - 5.0 g/dL [facility] Alk phos 117 40 - 130 Units/L [facility] ALT 22 7 - 45 Units/L [facility] AST 23 10 - 45 Units/L [facility] Blood 09/09/2024 6:24 AM KNIFE MACHINE OPERATOR 09/09/2024 6:52 AM KNIFE MACHINE OPERATOR us Anastasia Amaro MD LAB BLOOD ORDERABLES Final Result [facility] One [facility] [place] [address] * US Ob Limited (09/08/2024 10:29 AM KNIFE MACHINE OPERATOR) Fetus# [id number] VIEWPOINT Placenta Details anterior VIEWPOINT Presentation Vertex; Maternal right- low VIEWPOINT Fetus# [id number] VIEWPOINT Placenta Details anterior VIEWPOINT Presentation Vertex; Maternal left- high (presenting) VIEWPOINT Anatomical Region Laterality Modality Abdomen N/A Ultrasound 09/08/2024 10:2 9 AM KNIFE MACHINE OPERATOR Impressions 09/08/2024 11:25 AM KNIFE MACHINE OPERATOR 1. Mo/di twin IUP at 32w 3d. 2. Twin 1 Vertex; Maternal right- low: There is normal AFV with a DVP of 3.3 cm. A normal bladder is seen. Doppler study of the umbilical vessels and middle cerebral artery show normal waveforms. The PSV in the MCA was recorded at 1.11 MoM. 3. Twin 2 Vertex; Maternal left- high (presenting): There is normal AFV with a DVP of 5.4 cm. A normal bladder is seen. Doppler study of the umbilical vessels and middle cerebral artery show normal waveforms. The PSV in the MCA was recorded at 1.11 MoM. No evidence of TTTS or TAPS sequence. Narrative Procedure Note Kaela Mcallister MD - [...] esult * nonstress test (09/06/2024 8:38 PM KNIFE MACHINE OPERATOR) Narrative Anastasia Amaro MD - 09/06/2024 8:38 PM KNIFE MACHINE OPERATOR Pauline Simms MD 09/06/2024 8:41 PM Baby A FHR Baseline: 125 Variability: moderate Accelerations: absent Decelerations: absent in last part of tracing, was initially having small variable decels in monitoring Reactive: Yes Baby B FHR Baseline: 130 Variability: moderate Accelerations: present Decelerations: absent Reactive: Yes 29 y.o. at 32w1d a/f preeclampsia with SF On monitor [id number] Contractions: absent I have reviewed NST and instructed RN to take off monitor Pauline Simms MD us Ana M Rogers MD OB GYNE ORDERABLES Fi nal Result * eGFR (09/06/2024 4:31 AM KNIFE MACHINE OPERATOR) eGFR >90 >=60 mL/min/1. 73 m2 Comment: Interpretive Data Reference Interval Normal >/= 90 mL/min/1.73m2 Mildly decreased* 60 - 89 mL/min/1.73m2 Mildly to moderately decreased 45 - 59 mL/min/1.73m2 Moderately to severely decreased 30 - 44 mL/min/1.73m2 Severely decreased 15 - 29 mL/min/1.73m2 Kidney Failure < 15 mL/min/1.73m2 *Relative to young adult level Estimated glomerular filtration rate is determined by the 2020 CKD-EPI equation recommended by the National Kidney Foundation (A Unifying Approach to GFR Estimation: Recommendations of the NKF-ASK Task Force on Reassessing the Inclusion of Race in Diagnosing Kidney Disease, JASN 2021). The CKD-EPI equation should not be used for patients with unstable renal function and has not been validated in children and those over 70. Current interpretive data was last reviewed 2021. Blood 09/06/2024 4:31 AM KNIFE MACHINE OPERATOR 09/06/2024 4:53 AM KNIFE MACHINE OPERATOR us Anastasia Amaro MD LAB BLOOD ORDERABLES Final Result Performing Organization Address City/[facility]/ZIP Co de Phone Number [facility] Department [place] [employer] [place] [address] * (ABNORMAL) CBC without differential (09/06/2024 4:31 AM KNIFE MACHINE OPERATOR) WBC 10.3(H) 3.8 - 9.9 K/cumm Hgb 11.7(L) 11.9 - 15.5 g/dL [facility] Hct 34.5(L) 35.6 - 45.5 % [facility] Plt 249 150 - 400 K/cumm [facility] MPV 11.1 9.1 - 12.3 fL [facility] RBC 3.96 3.90 - 5.20 M/cumm [facility] MCV 87.1 81.3 - 96.4 fL [facility] MCH 29.5 27.1 - 33.3 pg [facility] MCHC 33.9 32.3 - 35.7 g/dL [facility] RDW CV 13.6 11.1 - 14.9 % [facility] RDW SD 42.7 35.7 - 48.1 fL [facility] NRBC abs 0.00 0.00 - 0.01 K/cumm [facility] Blood 09/06/2024 4:31 AM KNIFE MACHINE OPERATOR 09/06/2024 4:54 AM KNIFE MACHINE OPERATOR us Anastasia Amaro MD LAB BLOOD ORDERABLES Final Result Performing Organization Address City/[facility]/ZIP Co de Phone Number [facility] Department [place] [address] * Type and screen (09/06/2024 4:31 AM KNIFE MACHINE OPERATOR) ABO Rh O Negative Abiodun, indirect Negative [facility] Comment:Patient has previous antibody history Blood 09/06/2024 4:31 AM KNIFE MACHINE OPERATOR 09/06/2024 6:11 AM KNIFE MACHINE OPERATOR Narrative [facility] - 09/06/2024 7:16 AM KNIFE MACHINE OPERATOR Has the patient had Daratumumab or Isatuximab in the past 6 months?->Unknown Anastasia Amaro MD LAB BLOOD BANK TEST ORDERA BLES Final Result [facility] [place] [address] * (ABNORMAL) Comprehensive metabolic panel (09/06/2024 4:31 AM KNIFE MACHINE OPERATOR) Sodium 138 135 - 145 mmol/L Potassium, pl 3.6 3.3 - 4.9 mmol/L [facility] Chloride 105 97 - 110 mmol/L [facility] CO2 24 22 - 32 mmol/L [facility] Anion gap 9 2 - 15 mmol/L [facility] BUN 7 6 - 25 mg/dL [facility] Creatinine 0.63 0.60 - 1.10 mg/dL [facility] Glucose 62(L) 70 - 199 mg/dL [facility] Comment: Interpretive Data Fasting glucose >/= 126 mg/dl is diagnostic for diabetes. Fasting is defined as no caloric intake [...] Calcium 9.3 8.5 - 10.3 mg/dL [facility] Bilirubin, total 0.3 0.1 - 1.2 mg/dL [facility] Protein, pl 6.6 6.5 - 8.5 g/dL [facility] Albumin 3.2(L) 3.5 - 5.0 g/dL [facility] Alk phos 118 40 - 130 Units/L [facility] ALT 23 7 - 45 Units/L [facility] AST 22 10 - 45 Units/L [facility] Blood 09/06/2024 4:31 AM KNIFE MACHINE OPERATOR 09/06/2024 4:53 AM KNIFE MACHINE OPERATOR us Anastasia Amaro MD LAB BLOOD ORDERABLES Final Result Performing Organization Address [facility]/ZIP Co de Phone Number [facility] Department [place] [place] [address] * Group B streptococcal culture Vaginal/Rectal (09/03/2024 10:29 AM KNIFE MACHINE OPERATOR) Report Final Report: Negative Vaginal/Rectal 09/03/2024 10 :29 AM KNIFE MACHINE OPERATOR 09/03/2024 10:47 AM KNIFE MACHINE OPERATOR Narrative [facility] - 09/07/2024 11:05 AM KNIFE MACHINE OPERATOR Testing performed by [facility] ([phone]). us Joellen Julio MD LAB MICROBIOLOGY - GENERAL O RDERABLES Final Result Performing Organization Address City/[facility] Co de Phone Number [facility] Department [place] [employer] [place] [address] * eGFR (09/03/2024 5:26 AM KNIFE MACHINE OPERATOR) eGFR >90 >=60 mL/min/1. 73 m2 Comment: Interpretive Data Reference Interval Normal >/= 90 mL/min/1.73m2 Mildly decreased* 60 - 89 mL/min/1.73m2 Mildly to moderately decreased 45 - 59 mL/min/1.73m2 Moderately to severely decreased 30 - 44 mL/min/1.73m2 Severely decreased 15 - 29 mL/min/1.73m2 Kidney Failure < 15 mL/min/1.73m2 *Relative to young adult level Estimated glomerular [...] last reviewed 2021. Blood 09/03/2024 5:26 AM KNIFE MACHINE OPERATOR 09/03/2024 5:39 AM KNIFE MACHINE OPERATOR us Anastasia Amaro MD LAB BLOOD ORDERABLES Final Result [facility] One [facility] [place] [address] * (ABNORMAL) CBC without differential (09/03/2024 5:26 AM KNIFE MACHINE OPERATOR) WBC 12.1(H) 3.8 - 9.9 K/cumm Hgb 11.7(L) 11.9 - 15.5 g/dL [facility] Hct 34.0(L) 35.6 - 45.5 % [facility] Plt 273 150 - 400 K/cumm [facility] MPV 11.0 9.1 - 12.3 fL [facility] RBC 3.97 3.90 - 5.20 M/cumm [facility] MCV 85.6 81.3 - 96.4 fL [facility] MCH 29.5 27.1 - 33.3 pg [facility] MCHC 34.4 32.3 - 35.7 g/dL [facility] RDW CV 13.3 11.1 - 14.9 % [facility] RDW SD 41.7 35.7 - 48.1 fL [facility] NRBC abs 0.00 0.00 - 0.01 K/cumm [facility] Blood 09/03/2024 5:26 AM KNIFE MACHINE OPERATOR 09/03/2024 5:39 AM KNIFE MACHINE OPERATOR us Anastasia Amaro MD LAB BLOOD ORDERABLES Final Result Performing Organization Address [facility] Co de Phone Number [facility] [place] [address] * Type and screen (09/03/2024 5:26 AM KNIFE MACHINE OPERATOR) Pathologist [facility] Abiodun, indirect Negative Comment:Patient has previous antibody history ABO Rh O Negative [facility] Blood 09/03/2024 5:26 AM KNIFE MACHINE OPERATOR 09/03/2024 5:32 AM KNIFE MACHINE OPERATOR Narrative [facility] - 09/03/2024 6:27 AM KNIFE MACHINE OPERATOR Has the patient had Daratumumab or Isatuximab in the past 6 months?->Unknown Anastasia Amaro MD LAB BLOOD BANK TEST ORDERA BLES Final Result Performing Organization Address [facility] de Phone Number [facility] [place] [address] * (ABNORMAL) Comprehensive metabolic panel (09/03/2024 5:26 AM KNIFE MACHINE OPERATOR) [facility] Sodium 139 135 - 145 mmol/L Potassium, pl 4.0 3.3 - 4.9 mmol/L [facility] Chloride 105 97 - 110 mmol/L [facility] CO2 20(L) 22 - 32 mmol/L [facility] Anion gap 14 2 - 15 mmol/L [facility] BUN 8 6 - 25 mg/dL [facility] Creatinine 0.55(L) 0.60 - 1.10 mg/dL [facility] Glucose 68(L) 70 - 199 mg/dL [facility] Comment: Interpretive Data Fasting glucose >/= 126 mg/dl is diagnostic for diabetes. Fasting is defined as no caloric intake [...] Calcium 9.3 8.5 - 10.3 mg/dL [facility] Bilirubin, total 0.3 0.1 - 1.2 mg/dL [facility] Protein, pl 6.4(L) 6.5 - 8.5 g/dL [facility] Albumin 3.3(L) 3.5 - 5.0 g/dL [facility] Alk phos 111 40 - 130 Units/L [facility] ALT 22 7 - 45 Units/L [facility] AST 24 10 - 45 Units/L [facility] Blood 09/03/2024 5:26 AM KNIFE MACHINE OPERATOR 09/03/2024 5:39 AM KNIFE MACHINE OPERATOR us Anastasia Amaro MD LAB BLOOD ORDERABLES Final Result [facility] One [facility] [place] [address] * ECG 12 lead (09/02/2024 4:33 PM KNIFE MACHINE OPERATOR) Ventricular Rate EKG/Min 110 BPM [facility] Atrial Rate 110 BPM [facility] WY-Interval (MSEC) 130 ms [facility] QRS-Interval (MSEC) 82 ms [facility] QT-Interval (MSEC) 340 ms [facility] QTc 460 ms [facility] P [place] 55 degrees [facility] R Eola 22 degrees [facility] T Eola 30 degrees [facility] Diagnosis Sinus tachycardia Otherwise normal ECG No previous ECGs available Confirmed by SAMANTA KAPLAN M.D ([id number]) on 09/06/2024 2:44:26 PM [facility] 09/02/2024 4:33 PM KNIFE MACHINE OPERATOR 09/06/2024 2:44 PM KNIFE MACHINE OPERATOR us Joellen Julio MD ECG ORDERABLES Final Result [facility] * eGFR (08/31/2024 6:20 AM KNIFE MACHINE OPERATOR) eGFR >90 >=60 mL/min/1. 73 m2 Comment: Interpretive Data Reference Interval Normal >/= 90 mL/min/1.73m2 Mildly decreased* 60 - 89 mL/min/1.73m2 Mildly to moderately decreased 45 - 59 mL/min/1.73m2 Moderately to severely decreased 30 - 44 mL/min/1.73m2 Severely decreased 15 - 29 mL/min/1.73m2 Kidney Failure < 15 mL/min/1.73m2 *Relative to young adult level Estimated glomerular [...] last reviewed 2021. Blood 08/31/2024 6:20 AM KNIFE MACHINE OPERATOR 08/31/2024 7:25 AM KNIFE MACHINE OPERATOR Anastasia Amaro MD LAB BLOOD ORDERABLES Final Result [facility] One [facility] [place] [address] * (ABNORMAL) CBC without differential (08/31/2024 6:20 AM KNIFE MACHINE OPERATOR) WBC 10.5(H) 3.8 - 9.9 K/cumm Hgb 11.5(L) 11.9 - 15.5 g/dL [facility] Hct 34.1(L) 35.6 - 45.5 % [facility] Plt 282 150 - 400 K/cumm [facility] MPV 10.9 9.1 - 12.3 fL [facility] RBC 3.93 3.90 - 5.20 M/cumm [facility] MCV 86.8 81.3 - 96.4 fL [facility] MCH 29.3 27.1 - 33.3 pg [facility] MCHC 33.7 32.3 - 35.7 g/dL [facility] RDW CV 13.7 11.1 - 14.9 % [facility] RDW SD 42.6 35.7 - 48.1 fL [facility] NRBC abs 0.00 0.00 - 0.01 K/cumm [facility] Blood 08/31/2024 6:20 AM KNIFE MACHINE OPERATOR 08/31/2024 7:25 AM KNIFE MACHINE OPERATOR Anastasia Amaro MD LAB BLOOD ORDERABLES Final Result Performing Organization Address [facility] de Phone Number [facility] [place] [place] [address] * Type and screen (08/31/2024 6:20 AM KNIFE MACHINE OPERATOR) [facility] ABO Rh O Negative Abiodun, indirect Negative [facility] Comment:Patient has previous antibody history Blood 08/31/2024 6:20 AM KNIFE MACHINE OPERATOR 08/31/2024 7:41 AM KNIFE MACHINE OPERATOR Narrative [facility] - 08/31/2024 8:26 AM KNIFE MACHINE OPERATOR Has the patient had Daratumumab or Isatuximab in the past 6 months?->Unknown Anastasia Amaro MD LAB BLOOD BANK TEST ORDERA BLES Final Result Performing Organization Address [facility] de Phone Number [facility] [place] [address] * (ABNORMAL) Comprehensive metabolic panel (08/31/2024 6:20 AM KNIFE MACHINE OPERATOR) [facility] Sodium 137 135 - 145 mmol/L Potassium, pl 3.7 3.3 - 4.9 mmol/L [facility] Chloride 103 97 - 110 mmol/L [facility] CO2 22 22 - 32 mmol/L [facility] Anion gap 12 2 - 15 mmol/L [facility] BUN 6 6 - 25 mg/dL [facility] Creatinine 0.56(L) 0.60 - 1.10 mg/dL [facility] Glucose 70 70 - 199 mg/dL [facility] Comment: Interpretive Data Fasting glucose >/= 126 mg/dl is diagnostic for diabetes. Fasting is defined as no caloric intake [...] Calcium 9.5 8.5 - 10.3 mg/dL [facility] Bilirubin, total 0.2 0.1 - 1.2 mg/dL [facility] Protein, pl 6.4(L) 6.5 - 8.5 g/dL [facility] Albumin 3.2(L) 3.5 - 5.0 g/dL [facility] Alk phos 103 40 - 130 Units/L [facility] ALT 28 7 - 45 Units/L [facility] AST 25 10 - 45 Units/L [facility] Blood 08/31/2024 6:20 AM KNIFE MACHINE OPERATOR 08/31/2024 7:25 AM KNIFE MACHINE OPERATOR us Anastasia Amaro MD LAB BLOOD ORDERABLES Final Result [facility] One [facility] [place] [address] * nonstress test (08/29/2024 2:32 PM KNIFE MACHINE OPERATOR) Narrative Nini Cortez MD - 08/29/2024 2:32 PM KNIFE MACHINE OPERATOR Maureen Calix MD 08/29/2024 3:38 PM nonstress test Date/Time: 08/29/2024 2:32 PM Performed by: Maureen Calix MD Authorized by: Ana M Rogers MD us Ana M Rogers MD OB GYNE ORDERABLES Fi nal Result * nonstress test (08/28/2024 7:47 PM KNIFE MACHINE OPERATOR) Narrative Nini Cortez MD - 08/28/2024 7:47 PM KNIFE MACHINE OPERATOR Francisca Yun MD 08/28/2024 7:48 PM A FHR Baseline: 120 Variability: moderate Reactive: Yes Contractions: absent B FHR Baseline: 130 Variability: moderate Reactive: Yes Contractions: absent Comments: No decels x2 I have reviewed NST and instructed RN to take off monitor Francisca Yun MD us Ana M Rogers MD OB GYNE ORDERABLES Fi nal Result * eGFR (08/28/2024 6:00 AM KNIFE MACHINE OPERATOR) eGFR >90 >=60 mL/min/1. 73 m2 Comment: Interpretive Data Reference Interval Normal >/= 90 mL/min/1.73m2 Mildly decreased* 60 - 89 mL/min/1.73m2 Mildly to moderately decreased 45 - 59 mL/min/1.73m2 Moderately to severely decreased 30 - 44 mL/min/1.73m2 Severely decreased 15 - 29 mL/min/1.73m2 Kidney Failure < 15 mL/min/1.73m2 *Relative to young adult level Estimated glomerular [...] last reviewed 2021. Blood 08/28/2024 6:00 AM KNIFE MACHINE OPERATOR 08/28/2024 6:13 AM KNIFE MACHINE OPERATOR us Anastasia Amaro MD LAB BLOOD ORDERABLES Final Result [facility] Department [place] [address] * (ABNORMAL) CBC without differential (08/28/2024 6:00 AM KNIFE MACHINE OPERATOR) WBC 10.3(H) 3.8 - 9.9 K/cumm Hgb 11.2(L) 11.9 - 15.5 g/dL [facility] Hct 33.0(L) 35.6 - 45.5 % [facility] Plt 289 150 - 400 K/cumm [facility] MPV 10.7 9.1 - 12.3 fL [facility] RBC 3.78(L) 3.90 - 5.20 M/cumm [facility] MCV 87.3 81.3 - 96.4 fL [facility] MCH 29.6 27.1 - 33.3 pg [facility] MCHC 33.9 32.3 - 35.7 g/dL [facility] RDW CV 13.7 11.1 - 14.9 % [facility] RDW SD 43.6 35.7 - 48.1 fL [facility] NRBC abs 0.00 0.00 - 0.01 K/cumm [facility] Blood 08/28/2024 6:00 AM KNIFE MACHINE OPERATOR 08/28/2024 6:20 AM KNIFE MACHINE OPERATOR Anastasia Amaro MD LAB BLOOD ORDERABLES Final Result Performing Organization Address City/[facility]/ZIP Co de Phone Number [facility] Department [place] [employer] [place] [address] * Type and screen (08/28/2024 6:00 AM KNIFE MACHINE OPERATOR) ABO Rh O Negative Comment:Patient has previous antibody history Abiodun, indirect Negative [facility] Blood 08/28/2024 6:00 AM KNIFE MACHINE OPERATOR 08/28/2024 6:54 AM KNIFE MACHINE OPERATOR Narrative [facility] - 08/28/2024 7:53 AM KNIFE MACHINE OPERATOR Has the patient had Daratumumab or Isatuximab in the past 6 months?->Unknown Anastasia Amaro MD LAB BLOOD BANK TEST ORDERA BLES Final Result Performing Organization Address City/[facility]/ZIP Co de Phone Number [facility] [place] [employer] [place] [address] * (ABNORMAL) Comprehensive metabolic panel (08/28/2024 6:00 AM KNIFE MACHINE OPERATOR) Sodium 137 135 - 145 mmol/L Potassium, pl 3.6 3.3 - 4.9 mmol/L [facility] Chloride 105 97 - 110 mmol/L [facility] CO2 21(L) 22 - 32 mmol/L [facility] Anion gap 11 2 - 15 mmol/L [facility] BUN 8 6 - 25 mg/dL [facility] Creatinine 0.52(L) 0.60 - 1.10 mg/dL [facility] Glucose 74 70 - 199 mg/dL [facility] Comment: Interpretive Data Fasting glucose >/= 126 mg/dl is diagnostic for diabetes. Fasting is defined as no caloric intake [...] Calcium 9.3 8.5 - 10.3 mg/dL [facility] Bilirubin, total 0.2 0.1 - 1.2 mg/dL [facility] Protein, pl 6.2(L) 6.5 - 8.5 g/dL [facility] Albumin 3.2(L) 3.5 - 5.0 g/dL [facility] Alk phos 96 40 - 130 Units/L [facility] ALT 25 7 - 45 Units/L [facility] AST 22 10 - 45 Units/L [facility] Blood 08/28/2024 6:00 AM KNIFE MACHINE OPERATOR 08/28/2024 6:13 AM KNIFE MACHINE OPERATOR us Anastasia Amaro MD LAB BLOOD ORDERABLES Final Result [facility] [place] [address] * eGFR (08/25/2024 6:19 AM KNIFE MACHINE OPERATOR) eGFR >90 >=60 mL/min/1. 73 m2 Comment: Interpretive Data Reference Interval Normal >/= 90 mL/min/1.73m2 Mildly decreased* 60 - 89 mL/min/1.73m2 Mildly to moderately decreased 45 - 59 mL/min/1.73m2 Moderately to severely decreased 30 - 44 mL/min/1.73m2 Severely decreased 15 - 29 mL/min/1.73m2 Kidney Failure < 15 mL/min/1.73m2 *Relative to young adult level Estimated glomerular [...] last reviewed 2021. Blood 08/25/2024 6:19 AM KNIFE MACHINE OPERATOR 08/25/2024 6:33 AM KNIFE MACHINE OPERATOR us Anastasia Amaro MD LAB BLOOD ORDERABLES Final Result [facility] [place] [address] * (ABNORMAL) CBC without differential (08/25/2024 6:19 AM KNIFE MACHINE OPERATOR) [facility] WBC 10.5(H) 3.8 - 9.9 K/cumm Hgb 11.4(L) 11.9 - 15.5 g/dL [facility] Hct 33.4(L) 35.6 - 45.5 % [facility] Plt 299 150 - 400 K/cumm [facility] MPV 10.6 9.1 - 12.3 fL [facility] RBC 3.90 3.90 - 5.20 M/cumm [facility] MCV 85.6 81.3 - 96.4 fL [facility] MCH 29.2 27.1 - 33.3 pg [facility] MCHC 34.1 32.3 - 35.7 g/dL [facility] RDW CV 13.4 11.1 - 14.9 % [facility] RDW SD 41.7 35.7 - 48.1 fL [facility] NRBC abs 0.00 0.00 - 0.01 K/cumm [facility] Blood 08/25/2024 6:19 AM KNIFE MACHINE OPERATOR 08/25/2024 6:32 AM KNIFE MACHINE OPERATOR Anastasia Amaro MD LAB BLOOD ORDERABLES Final Result Performing Organization Address [facility] Co de Phone Number [facility] [place] [employer] [place] [address] * Type and screen (08/25/2024 6:19 AM KNIFE MACHINE OPERATOR) [facility] Abiodun, indirect Negative Comment:Patient has previous antibody history ABO Rh O Negative [facility] Blood 08/25/2024 6:19 AM KNIFE MACHINE OPERATOR 08/25/2024 7:06 AM KNIFE MACHINE OPERATOR Narrative [facility] - 08/25/2024 8:01 AM KNIFE MACHINE OPERATOR Has the patient had Daratumumab or Isatuximab in the past 6 months?->Unknown Anastasia Amaro MD LAB BLOOD BANK TEST ORDERA BLES Final Result Performing Organization Address [facility] de Phone Number [facility] [place] [employer] [place] [address] * (ABNORMAL) Comprehensive metabolic panel (08/25/2024 6:19 AM KNIFE MACHINE OPERATOR) [facility] Sodium 139 135 - 145 mmol/L Potassium, pl 3.5 3.3 - 4.9 mmol/L [facility] Chloride 105 97 - 110 mmol/L [facility] CO2 22 22 - 32 mmol/L [facility] Anion gap 12 2 - 15 mmol/L [facility] BUN 6 6 - 25 mg/dL [facility] Creatinine 0.53(L) 0.60 - 1.10 mg/dL [facility] Glucose 70 70 - 199 mg/dL [facility] Comment: Interpretive Data Fasting glucose >/= 126 mg/dl is diagnostic for diabetes. Fasting is defined as no caloric intake [...] Calcium 9.2 8.5 - 10.3 mg/dL [facility] Bilirubin, total 0.2 0.1 - 1.2 mg/dL [facility] Protein, pl 6.4(L) 6.5 - 8.5 g/dL [facility] Albumin 3.2(L) 3.5 - 5.0 g/dL [facility] Alk phos 92 40 - 130 Units/L [facility] ALT 22 7 - 45 Units/L [facility] AST 22 10 - 45 Units/L [facility] Blood 08/25/2024 6:19 AM KNIFE MACHINE OPERATOR 08/25/2024 6:33 AM KNIFE MACHINE OPERATOR us Anastasia Amaro MD LAB BLOOD ORDERABLES Final Result [facility] One [facility] [place] [address] * US Ob Follow Up (08/24/2024 9:37 AM KNIFE MACHINE OPERATOR) Fetus# [id number] VIEWPOINT Estimated Weight 1,348 g&grams VIEWPOINT Placenta Details anterior VIEWPOINT Presentation Vertex; Maternal right- low VIEWPOINT Fetus# Fetus2 VIEWPOINT Estimated Weight 1,784 g&grams VIEWPOINT Placenta Details anterior VIEWPOINT Presentation Vertex; Maternal left- high (presenting) VIEWPOINT Anatomical Region Laterality Modality Abdomen N/A Ultrasound 08/24/2024 9:37 AM KNIFE MACHINE OPERATOR Impressions 08/24/2024 2:06 PM KNIFE MACHINE OPERATOR 1. Presumed Mo/Di twin IUP at 30w 2d - confirmed by outside study.2. Twin 1 Vertex; Maternal right- low: The DVP measures 4.8 cm. A normal bladder is seen. Doppler study of the umbilical vessels and middle cerebral artery show normal waveforms. The PSV in the MCA was recorded at 1.14 MoM. DV doppler is difficult to obtain. Interval growth is appropriate. 3. Twin 2 Vertex; Maternal left- high (presenting): The DVP measures 3.1 cm. A normal bladder is seen. Doppler study of the umbilical vessels, ductus venosus and middle cerebral artery show normal waveforms. The PSV in the MCA was recorded at 1.22v MoM. Interval growth is appropriate.No evidence of TTTS or TAPS sequence. growth discordance of 25%. Recommendation: Continue every two week surveillance for TTTS/TAPS [...] Edite d * eGFR (08/22/2024 6:02 AM KNIFE MACHINE OPERATOR) eGFR >90 >=60 mL/min/1. 73 m2 Comment: Interpretive Data Reference Interval Normal >/= 90 mL/min/1.73m2 Mildly decreased* 60 - 89 mL/min/1.73m2 Mildly to moderately decreased 45 - 59 mL/min/1.73m2 Moderately to severely decreased 30 - 44 mL/min/1.73m2 Severely decreased 15 - 29 mL/min/1.73m2 Kidney Failure < 15 mL/min/1.73m2 *Relative to young adult level Estimated glomerular [...] last reviewed 2021. Blood 08/22/2024 6:02 AM KNIFE MACHINE OPERATOR 08/22/2024 6:18 AM KNIFE MACHINE OPERATOR us Anastasia Amaro MD LAB BLOOD ORDERABLES Final Result [facility] [place] [address] * (ABNORMAL) CBC without differential (08/22/2024 6:02 AM KNIFE MACHINE OPERATOR) WBC 12.2(H) 3.8 - 9.9 K/cumm Hgb 11.8(L) 11.9 - 15.5 g/dL [facility] Hct 34.4(L) 35.6 - 45.5 % [facility] Plt 277 150 - 400 K/cumm [facility] MPV 10.4 9.1 - 12.3 fL [facility] RBC 4.02 3.90 - 5.20 M/cumm [facility] MCV 85.6 81.3 - 96.4 fL [facility] MCH 29.4 27.1 - 33.3 pg [facility] MCHC 34.3 32.3 - 35.7 g/dL [facility] RDW CV 13.6 11.1 - 14.9 % [facility] RDW SD 42.4 35.7 - 48.1 fL [facility] NRBC abs 0.00 0.00 - 0.01 K/cumm [facility] Blood 08/22/2024 6:02 AM KNIFE MACHINE OPERATOR 08/22/2024 6:18 AM KNIFE MACHINE OPERATOR Anastasia Amaro MD LAB BLOOD ORDERABLES Final Result Performing Organization Address [facility] de Phone Number [facility] [place] [employer] [place] [address] * Type and screen (08/22/2024 6:02 AM KNIFE MACHINE OPERATOR) [facility] Abiodun, indirect Negative Comment:Patient has previous antibody history ABO Rh O Negative [facility] Blood 08/22/2024 6:02 AM KNIFE MACHINE OPERATOR 08/22/2024 6:24 AM KNIFE MACHINE OPERATOR Narrative [facility] - 08/22/2024 7:25 AM KNIFE MACHINE OPERATOR Has the patient had Daratumumab or Isatuximab in the past 6 months?->Unknown Anastasia Amaro MD LAB BLOOD BANK TEST ORDERA BLES Final Result Performing Organization Address [facility] de Phone Number [facility] [place] [address] * (ABNORMAL) Comprehensive metabolic panel (08/22/2024 6:02 AM KNIFE MACHINE OPERATOR) [facility] Sodium 138 135 - 145 mmol/L Potassium, pl 3.7 3.3 - 4.9 mmol/L [facility] Chloride 104 97 - 110 mmol/L [facility] CO2 23 22 - 32 mmol/L [facility] Anion gap 11 2 - 15 mmol/L [facility] BUN 7 6 - 25 mg/dL [facility] Creatinine 0.53(L) 0.60 - 1.10 mg/dL [facility] Glucose 72 70 - 199 mg/dL [facility] Comment: Interpretive Data Fasting glucose >/= 126 mg/dl is diagnostic for diabetes. Fasting is defined as no caloric intake [...] 2022. Calcium 9.3 8.5 - 10.3 mg/dL [facility] Bilirubin, total 0.2 0.1 - 1.2 mg/dL [facility] Protein, pl 6.6 6.5 - 8.5 g/dL [facility] Albumin 3.2(L) 3.5 - 5.0 g/dL [facility] Alk phos 90 40 - 130 Units/L [facility] ALT 19 7 - 45 Units/L [facility] AST 18 10 - 45 Units/L [facility] Blood 08/22/2024 6:02 AM KNIFE MACHINE OPERATOR 08/22/2024 6:18 AM KNIFE MACHINE OPERATOR us Anastasia Amaro MD LAB BLOOD ORDERABLES Final Result [facility] [place] [address] * eGFR (08/19/2024 6:25 AM KNIFE MACHINE OPERATOR) eGFR >90 >=60 mL/min/1. 73 m2 Comment: Interpretive Data Reference Interval Normal >/= 90 mL/min/1.73m2 Mildly decreased* 60 - 89 mL/min/1.73m2 Mildly to moderately decreased 45 - 59 mL/min/1.73m2 Moderately to severely decreased 30 - 44 mL/min/1.73m2 Severely decreased 15 - 29 mL/min/1.73m2 Kidney Failure < 15 mL/min/1.73m2 *Relative to young adult level Estimated glomerular [...] last reviewed 2021. Blood 08/19/2024 6:25 AM KNIFE MACHINE OPERATOR 08/19/2024 7:23 AM KNIFE MACHINE OPERATOR Anastasia Amaro MD LAB BLOOD ORDERABLES Final Result Performing Organization Address City/[facility]/ZIP Co de Phone Number [facility] Department [place] [employer] [place] [address] * (ABNORMAL) CBC without differential (08/19/2024 6:25 AM KNIFE MACHINE OPERATOR) WBC 11.2(H) 3.8 - 9.9 K/cumm Hgb 11.3(L) 11.9 - 15.5 g/dL [facility] Hct 33.9(L) 35.6 - 45.5 % [facility] Plt 249 150 - 400 K/cumm [facility] MPV 10.6 9.1 - 12.3 fL [facility] RBC 3.89(L) 3.90 - 5.20 M/cumm [facility] MCV 87.1 81.3 - 96.4 fL [facility] MCH 29.0 27.1 - 33.3 pg [facility] MCHC 33.3 32.3 - 35.7 g/dL [facility] RDW CV 13.4 11.1 - 14.9 % [facility] RDW SD 42.5 35.7 - 48.1 fL [facility] NRBC abs 0.00 0.00 - 0.01 K/cumm [facility] Blood 08/19/2024 6:25 AM KNIFE MACHINE OPERATOR 08/19/2024 7:23 AM KNIFE MACHINE OPERATOR Anastasia Amaro MD LAB BLOOD ORDERABLES Final Result Performing Organization Address City/[facility]/ZIP Co de Phone Number [facility] Department [place] [address] * Type and screen (08/19/2024 6:25 AM KNIFE MACHINE OPERATOR) Abiodun, indirect Negative ABO Rh O Negative [facility] Comment:Patient has previous antibody history Blood 08/19/2024 6:25 AM KNIFE MACHINE OPERATOR 08/19/2024 7:31 AM KNIFE MACHINE OPERATOR Narrative [facility] - 08/19/2024 8:22 AM KNIFE MACHINE OPERATOR Has the patient had Daratumumab or Isatuximab in the past 6 months?->Unknown us Anastasia Amaro MD LAB BLOOD BANK TEST ORDERA BLES Final Result [facility] [place] [address] * (ABNORMAL) Comprehensive metabolic panel (08/19/2024 6:25 AM KNIFE MACHINE OPERATOR) Sodium 138 135 - 145 mmol/L Potassium, pl 3.7 3.3 - 4.9 mmol/L [facility] Chloride 105 97 - 110 mmol/L [facility] CO2 23 22 - 32 mmol/L [facility] Anion gap 10 2 - 15 mmol/L [facility] BUN 7 6 - 25 mg/dL [facility] Creatinine 0.54(L) 0.60 - 1.10 mg/dL [facility] Glucose 68(L) 70 - 199 mg/dL [facility] Comment: Interpretive Data Fasting glucose >/= 126 mg/dl is diagnostic for diabetes. Fasting is defined as no caloric intake [...] Calcium 9.3 8.5 - 10.3 mg/dL [facility] Bilirubin, total 0.2 0.1 - 1.2 mg/dL [facility] Protein, pl 6.3(L) 6.5 - 8.5 g/dL [facility] Albumin 3.0(L) 3.5 - 5.0 g/dL [facility] Alk phos 88 40 - 130 Units/L [facility] ALT 13 7 - 45 Units/L [facility] AST 18 10 - 45 Units/L [facility] Blood 08/19/2024 6:25 AM KNIFE MACHINE OPERATOR 08/19/2024 7:23 AM KNIFE MACHINE OPERATOR us Anastasia Amaro MD LAB BLOOD ORDERABLES Final Result [facility] [place] [address] * US Ob Limited (08/16/2024 8:35 AM KNIFE MACHINE OPERATOR) Fetus# Fetus1 VIEWPOINT Placenta Details anterior VIEWPOINT Presentation Transverse, maternal right-low VIEWPOINT Fetus# Fetus2 VIEWPOINT Placenta Details anterior VIEWPOINT Presentation Vertex; Maternal left- high VIEWPOINT Anatomical Region Laterality Modality Abdomen N/A Ultrasound 08/16/2024 8:36 AM KNIFE MACHINE OPERATOR Impressions 08/16/2024 2:23 PM KNIFE MACHINE OPERATOR Diamniotic (presumed MCDA) TIUP at 29w1d who is admitted for preE with severe features who presents for TTTS screen.Chorionicity was not fully assessed but was previously determined to be monochorionic by the [facility]. Anatomic surveys were also completed [...] to be monochorionic by the [facility]. Anatomic surveys were also completed there. [...] Result * Antibody identification (08/16/2024 7:34 AM KNIFE MACHINE OPERATOR) Antibody ID 1 Passive Anti-D Blood 08/16/2024 7:34 AM KNIFE MACHINE OPERATOR 08/16/2024 7:34 AM KNIFE MACHINE OPERATOR Anastasia Amaro MD LAB BLOOD BANK TEST ORDERA BLES Final Result [facility] [place] [address] * eGFR (08/16/2024 6:15 AM KNIFE MACHINE OPERATOR) eGFR >90 >=60 mL/min/1. 73 m2 Comment: Interpretive Data Reference Interval Normal >/= 90 mL/min/1.73m2 Mildly decreased* 60 - 89 mL/min/1.73m2 Mildly to moderately decreased 45 - 59 mL/min/1.73m2 Moderately to severely decreased 30 - 44 mL/min/1.73m2 Severely decreased 15 - 29 mL/min/1.73m2 Kidney Failure < 15 mL/min/1.73m2 *Relative to young adult level Estimated glomerular [...] last reviewed 2021. Blood 08/16/2024 6:15 AM KNIFE MACHINE OPERATOR 08/16/2024 6:29 AM KNIFE MACHINE OPERATOR Anastasia Amaro MD LAB BLOOD ORDERABLES Final Result Performing Organization Address City/[facility]/ZIP Co de Phone Number [facility] [place] [place] [address] * Thyroid Function Evangeline (08/16/2024 6:15 AM KNIFE MACHINE OPERATOR) Pathologist [facility] TSH 3.83 0.30 - 4.20 mcIUnit/mL Blood 08/16/2024 6:15 AM KNIFE MACHINE OPERATOR 08/16/2024 6:29 AM KNIFE MACHINE OPERATOR Anastasia Amaro MD LAB BLOOD ORDERABLES Final Result Performing Organization Address City/[facility] Co de Phone Number [facility] [place] [place] [address] * (ABNORMAL) CBC without differential (08/16/2024 6:15 AM KNIFE MACHINE OPERATOR) Pathologist [facility] WBC 10.9(H) 3.8 - 9.9 K/cumm Hgb 11.6(L) 11.9 - 15.5 g/dL [facility] Hct 34.0(L) 35.6 - 45.5 % [facility] Plt 257 150 - 400 K/cumm [facility] MPV 10.4 9.1 - 12.3 fL [facility] RBC 3.95 3.90 - 5.20 M/cumm [facility] MCV 86.1 81.3 - 96.4 fL [facility] MCH 29.4 27.1 - 33.3 pg [facility] MCHC 34.1 32.3 - 35.7 g/dL [facility] RDW CV 13.3 11.1 - 14.9 % [facility] RDW SD 41.5 35.7 - 48.1 fL [facility] NRBC abs 0.00 0.00 - 0.01 K/cumm [facility] Blood 08/16/2024 6:15 AM KNIFE MACHINE OPERATOR 08/16/2024 6:30 AM KNIFE MACHINE OPERATOR Anastasia Amaro MD LAB BLOOD ORDERABLES Final Result Performing Organization Address [facility] Co de Phone Number [facility] [place] [employer] [place] [address] * (ABNORMAL) Type and screen (08/16/2024 6:15 AM KNIFE MACHINE OPERATOR) [facility] Abiodun, indirect Positive(A) ABO Rh O Negative [facility] Blood 08/16/2024 6:15 AM KNIFE MACHINE OPERATOR 08/16/2024 6:25 AM KNIFE MACHINE OPERATOR Narrative [facility] - 08/16/2024 7:34 AM KNIFE MACHINE OPERATOR Has the patient had Daratumumab or Isatuximab in the past 6 months?->Unknown Anastasia Amaro MD LAB BLOOD BANK TEST ORDERA BLES Final Result Performing Organization Address [facility] de Phone Number [facility] Department [place] [employer] [place] [address] * (ABNORMAL) Comprehensive metabolic panel (08/16/2024 6:15 AM KNIFE MACHINE OPERATOR) Pathologist [facility] Sodium 139 135 - 145 mmol/L Potassium, pl 3.4 3.3 - 4.9 mmol/L [facility] Chloride 105 97 - 110 mmol/L [facility] CO2 23 22 - 32 mmol/L [facility] Anion gap 11 2 - 15 mmol/L [facility] BUN 8 6 - 25 mg/dL [facility] Creatinine 0.51(L) 0.60 - 1.10 mg/dL [facility] Glucose 72 70 - 199 mg/dL [facility] Comment: Interpretive Data Fasting glucose >/= 126 mg/dl is diagnostic for diabetes. Fasting is defined as no caloric intake [...] Calcium 9.2 8.5 - 10.3 mg/dL [facility] Bilirubin, total 0.2 0.1 - 1.2 mg/dL [facility] Protein, pl 6.4(L) 6.5 - 8.5 g/dL [facility] Albumin 3.2(L) 3.5 - 5.0 g/dL [facility] Alk phos 86 40 - 130 Units/L [facility] ALT 16 7 - 45 Units/L [facility] AST 16 10 - 45 Units/L [facility] Blood 08/16/2024 6:15 AM KNIFE MACHINE OPERATOR 08/16/2024 6:29 AM KNIFE MACHINE OPERATOR us Anastasia Amaro MD LAB BLOOD ORDERABLES Final Result [facility] Department [place] [employer] [place] [address] * POCT glucose (08/14/2024 3:06 PM KNIFE MACHINE OPERATOR) [facility] Glucose, POC 103 70 - 199 mg/dL Comment:Post Meal Glucose comment 1 Post Meal [facility] Blood 08/14/2024 3:06 PM KNIFE MACHINE OPERATOR 08/14/2024 3:06 PM KNIFE MACHINE OPERATOR Anastasia Amaro MD LAB POCT ORDERABLES - JELENA CE Final Result Performing Organization Address City/[facility]/ZIP Co de Phone Number [facility] [place] [address] * ECG 12 lead (08/13/2024 9:02 AM KNIFE MACHINE OPERATOR) [facility] Ventricular Rate EKG/Min 122 BPM [facility] Atrial Rate 122 BPM [facility] [place]-Interval (MSEC) 132 ms [facility] QRS-Interval (MSEC) 80 ms [facility] QT-Interval (MSEC) 324 ms [facility] QTc 461 ms [facility] P E[place] 49 degrees [facility] R Eola 18 degrees [facility] T Eola 29 degrees [facility] Diagnosis Sinus tachycardia Otherwise normal ECG When compared with ECG of 04-AUG-2024 17:45, No significant change was found Confirmed by SAMANTA KAPLAN M.D ([id number]) on 08/15/2024 12:21:02 PM [facility] 08/13/2024 9:02 AM KNIFE MACHINE OPERATOR 08/15/2024 12:21 PM KNIFE MACHINE OPERATOR us Anastasia Amaro MD ECG ORDERABLES Final Resu lt [facility] * Antibody identification (08/13/2024 7:42 AM KNIFE MACHINE OPERATOR) [facility] Antibody ID 1 Passive Anti-D Blood 08/13/2024 7:42 AM KNIFE MACHINE OPERATOR 08/13/2024 7:42 AM KNIFE MACHINE OPERATOR Anastasia Amaro MD LAB BLOOD BANK TEST ORDERA BLES Final Result [facility] [place] [address] * eGFR (08/13/2024 5:44 AM KNIFE MACHINE OPERATOR) [facility] eGFR >90 >=60 mL/min/1. 73 m2 Comment: Interpretive Data Reference Interval Normal >/= 90 mL/min/1.73m2 Mildly decreased* 60 - 89 mL/min/1.73m2 Mildly to moderately decreased 45 - 59 mL/min/1.73m2 Moderately to severely decreased 30 - 44 mL/min/1.73m2 Severely decreased 15 - 29 mL/min/1.73m2 Kidney Failure < 15 mL/min/1.73m2 *Relative to young adult level Estimated glomerular [...] last reviewed 2021. Blood 08/13/2024 5:44 AM KNIFE MACHINE OPERATOR 08/13/2024 6:05 AM KNIFE MACHINE OPERATOR Anastasia Amaro MD LAB BLOOD ORDERABLES Final Result Performing Organization Address City/[facility] Co de Phone Number [facility] [place] [employer] [place] [address] * HIV 1/2 Antibody plus p24 Antigen Blood (08/13/2024 5:44 AM KNIFE MACHINE OPERATOR) HIV 1/2 ab + p24 ag Nonreactive Nonreactive Comment:Nonreactive for HIV- 1 antigen and HIV-1/HIV-2 antibodies. No laboratory evidence of HIV infection. If acute HIV infection is suspected, consider testing for HIV-1 RNA. Current interpretive data was last revised on 22. Blood 08/13/2024 5:44 AM KNIFE MACHINE OPERATOR 08/13/2024 6:05 AM KNIFE MACHINE OPERATOR us Anastasia Amaro MD LAB MICROBIOLOGY - GENERAL ORDERABLES Final Result Performing Organization Address City/[facility]/ZIP Co de Phone Number [facility] [place] [employer] [place] [address] * RPR Blood (08/13/2024 5:44 AM KNIFE MACHINE OPERATOR) RPR Nonreactive Nonreactive Blood 08/13/2024 5:44 AM KNIFE MACHINE OPERATOR 08/13/2024 6:05 AM KNIFE MACHINE OPERATOR Anastasia Amaro MD LAB MICROBIOLOGY - GENERAL ORDERABLES Final Result Performing Organization Address City/[facility]/ZIP Co de Phone Number [facility] Department [place] [address] * (ABNORMAL) CBC without differential (08/13/2024 5:44 AM KNIFE MACHINE OPERATOR) Pathologist [facility] WBC 12.4(H) 3.8 - 9.9 K/cumm Hgb 11.8(L) 11.9 - 15.5 g/dL [facility] Hct 34.4(L) 35.6 - 45.5 % [facility] Plt 295 150 - 400 K/cumm [facility] MPV 10.3 9.1 - 12.3 fL [facility] RBC 3.93 3.90 - 5.20 M/cumm [facility] MCV 87.5 81.3 - 96.4 fL [facility] MCH 30.0 27.1 - 33.3 pg [facility] MCHC 34.3 32.3 - 35.7 g/dL [facility] RDW CV 13.6 11.1 - 14.9 % [facility] RDW SD 43.5 35.7 - 48.1 fL [facility] NRBC abs 0.00 0.00 - 0.01 K/cumm [facility] Blood 08/13/2024 5:44 AM KNIFE MACHINE OPERATOR 08/13/2024 6:05 AM KNIFE MACHINE OPERATOR us Anastasia Amaro MD LAB BLOOD ORDERABLES Final Result [facility] Department [place] [employer] [place] [address] * (ABNORMAL) Type and screen (08/13/2024 5:44 AM KNIFE MACHINE OPERATOR) Pathologist [facility] ABO Rh O Negative Abiodun, indirect Positive(A) [facility] Blood 08/13/2024 5:44 AM KNIFE MACHINE OPERATOR 08/13/2024 6:19 AM KNIFE MACHINE OPERATOR Narrative [facility] - 08/13/2024 7:42 AM KNIFE MACHINE OPERATOR Has the patient had Daratumumab or Isatuximab in the past 6 months?->Unknown Anastasia Amaro MD LAB BLOOD BANK TEST ORDERA BLES Final Result [facility] [place] [address] * (ABNORMAL) Comprehensive metabolic panel (08/13/2024 5:44 AM KNIFE MACHINE OPERATOR) [facility] Sodium 137 135 - 145 mmol/L Potassium, pl 3.7 3.3 - 4.9 mmol/L [facility] Chloride 104 97 - 110 mmol/L [facility] CO2 22 22 - 32 mmol/L [facility] Anion gap 11 2 - 15 mmol/L [facility] BUN 8 6 - 25 mg/dL [facility] Creatinine 0.49(L) 0.60 - 1.10 mg/dL [facility] Glucose 74 70 - 199 mg/dL [facility] Comment: Interpretive Data Fasting glucose >/= 126 mg/dl is diagnostic for diabetes. Fasting is defined as no caloric intake [...] Calcium 9.4 8.5 - 10.3 mg/dL [facility] Bilirubin, total 0.3 0.1 - 1.2 mg/dL [facility] Protein, pl 6.5 6.5 - 8.5 g/dL [facility] Albumin 3.3(L) 3.5 - 5.0 g/dL [facility] Alk phos 85 40 - 130 Units/L [facility] ALT 21 7 - 45 Units/L [facility] AST 19 10 - 45 Units/L [facility] Blood 08/13/2024 5:44 AM KNIFE MACHINE OPERATOR 08/13/2024 6:05 AM KNIFE MACHINE OPERATOR us Anastasia Amaro MD LAB BLOOD ORDERABLES Final Result Performing Organization Address [facility] Co de Phone Number [facility] [place] [address] * Hepatitis C antibody Blood (05/20/2024 2:47 PM CDT) Hep C Ab Nonreactive Nonreactive Comment: Interpretive Data Nonreactive: Antibodies to HCV not detected. Does NOT exclude the possibility of recent exposure to HCV. Equivocal: Equivocal for HCV antibodies. Supplemental molecular testing will be automatically performed to determine infection status in accordance with current CDC screening recommendations. Reactive: Positive for HCV antibodies. This may represent current or past HCV infection. Supplemental molecular testing will be automatically performed to determine current infection status in accordance with current CDC screening recommendations. Interpretive data was last revised on 2019. Blood 05/20/2024 2:47 PM CDT 05/20/2024 3:12 PM CDT us Dia Mantilla MD LAB MICROBIOLOGY - GENERAL ORDERABLES Final Result Performing Organization Address [facility] Co de Phone Number [facility] [address] [place] [address] from Last 3 Months or Most Recently Relevant to Health Maintenance Insurance [employer] [facility] EXCHANGE [employer] [facility] EXCHANGE Advance Directives For more information, please contact: [phone] * Full Code (Latest Code Status on File) Date Activated Date Inactivated Comments 09/19/2024 4:34 PM 09/22/2024 3:32 PM * Full Code Date Activated Date Inactivated Comments 07/29/2024 3:05 AM 09/19/2024 4:34 PM Care Teams Hay Stacker Operator Relationship Specialty Start Date End Date No, Physician PCP - General 02/25/24
--- OUTSIDE RECORDS SUMMARY | 2024-11-13 20:15 | XMS_ITS | Referral Summary ---
Author Organization [facility] Address [address] [place] [phone] Care Team Providers Care Strategic Partnership Representative Name Role Phone No, Physician Primary Care Provider [phone] Encounters Date Type Department Care Team Description 11/04/2024 Telephone Psychiatry James Rojas MD Reminder of Appointment 11/03/2024 4:37 PM SWITCH MAKER - 11/03/2024 11:59 PM SWITCH MAKER Hospital Encounter [address] [address] Encounter for routine follow-up Discharge Disposition: Discharge to home or self care 11/03/2024 1:40 PM SWITCH MAKER Office Visit [facility] [address] [place] [address] Floor [address] [place] [phone] Encounter for routine follow-up (Primary Dx) 10/28/2024 [place] [address] Nancy Noel, [facility] Brief Therapeutic Intervention 10/20/2024 Orders Only [facility] [address] [place] [address] 7th Floor [address] [place] [phone] Gracy Hicks RN Postpartum care following delivery (Primary Dx); Preeclampsia, unspecified trimester 10/20/2024 1:00 PM SWITCH MAKER Office Visit [facility] [address] [place] [address] 7th Floor [address] [place] [phone] care following delivery (Primary Dx) 10/18/2024 1:00 PM SWITCH MAKER Telemedicine [facility] [place] [address] Nancy Noel, LEO Generalized anxiety disorder (Primary Dx) 10/16/2024 9:30 AM SWITCH MAKER - 10/16/2024 2:10 PM SWITCH MAKER Emergency [facility] Emergency Department [address] [place] [address] Satnam Nair MD Secondary hypertension (Primary Dx) Discharge Disposition: Discharge to home or self care 10/07/2024 Telephone [facility] [place] [address] Nancy Noel, LEO [facility] Initial Contact 09/30/[address] [address] 09/25/[address] [address] 07/29/2024 2:42 AM CDT - 09/22/2024 11:26 AM SWITCH MAKER Hospital Encounter [address] [address] Anastasia Amaro MD Bligard, MD Sumanth Fitzgerald Julia Ellen, MD Goodman, Sara Olsen MD Preeclampsia, unspecified trimester (Primary Dx); Twin , unable to determine number of placenta and number of amniotic sacs, antepartum, unspecified trimester [O30.099]; 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 Discharge Disposition: Discharge to home or self care 09/19/2024 1:57 PM SWITCH MAKER Anesthesia Event [address] [address] Sidra Ann MD Bailey, Cody Allen, MD 09/19/2024 1:30 PM SWITCH MAKER - 09/19/2024 4:05 PM SWITCH MAKER Surgery [address] [address] Josefina Peter MD SECTION 09/15/2024 9:00 AM SWITCH MAKER Ancillary Procedure [facility] [address] [address] 09/08/2024 10:00 AM SWITCH MAKER Ancillary Procedure [facility] [address] [address] 08/24/2024 12:30 PM SWITCH MAKER Ancillary Procedure [address] [address] 08/16/2024 8:15 AM SWITCH MAKER Ancillary Procedure [address] [address] from Last 3 Months Allergies No known [...] BP daily and record 1 kit 10/20/19 25 Active Additional Information Patient not taking.Reported on 11/03/2024 hydrOXYzine (ATARAX) 10 mg tablet 10/25/19 25 Active meloxicam (MOBIC) 15 mg tablet Take 1 tablet (15 mg total) by mouth daily 10/27/19 25 Active nortriptyline (PAMELOR) 10 mg capsule Take 1 capsule (10 mg total) by mouth nightly as needed 10/20/19 25 Active sertraline (ZOLOFT) 50 mg tablet 10/25/19 [...] Blood pressures well controlled on N120XL and [id number]. CBC/CMP WNL, UPC 0.1. Enrolled in remote [...] # Disposition: Follow up task sent to [facility] scheduling pool for appointments in 2 and 6 weeks. They are enrolled in remote blood pressure monitoring for their BP check. Desires discharge home today. Service Coverage These phones are service phones and carried 27/04 in house: R1 (first call) [phone] R1 alt (second call) [phone] R4 (Chief) [phone] 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 08/29/2024 [...] Blood pressures well controlled on N120XL and [id number]. Magnesium for seizure prophylaxis. #sinus tachycardia, intermittent: [...] pp Rh negative state in antepartum period 4 Overview (06/20/2024): Will plan for rhogam Maternal [...] found out that that would be in [place] he used an expletive to express that [...] Tobacco: Never Tobacco Cessation:Counseling Given: Not Answered [facility] Utilities Answer Date Recorded In the past 12 months has [employer], oil, or water [employer] threatened to shut off services in your [...] week 07/29/2024 How often do you attend [facility] or hoahaoism services? Never 07/29/2024 Do you belong to any clubs o r organizations such as hoahaoism groups, unions, fraternal or athletic groups, or [...] staff should administer the PHQ-9) 0 07/28/2024 [facility] Occupat ional [facility] - Occupational Stress Questionnaire Answer [...] things needed for daily living? No 07/29/2024 [place] Depression Scale Answer Date Recorded [place] Depression Scale Total 21 10/20/2024 The thought [...] in the past 12 m [facility], were you homeless or living in a skilled nursing (including now)? No 07/29/2024 Personal Safety Answer Date Recorded Have you ever been in or are you currently in a harmful physical or emotional relationship or is someone making you feel afraid or unsafe? Denies 10/16/2024 Comments No Sex and Gender Information Value Date Recorded Sex Assigned at Not on file Legal Sex Female 2:19 AM SWITCH MAKER Gender Identity Not on file Sexual Orientation Not on file Last Filed Vital Signs Vital Sign Reading Time Taken Comments Blood Pressure 120/81 11/03/2024 1:53 PM SWITCH MAKER Pulse 116 11/03/2024 1:53 PM SWITCH MAKER Temperature 35.9 C (96.7 F) 10/16/2024 9:28 AM SWITCH MAKER Respiratory Rate 18 10/16/2024 11:0 0 AM SWITCH MAKER Oxygen Saturation 97% 11/03/2024 1:53 PM SWITCH MAKER Inhaled Oxygen Concentration - - Weight 111.5 kg (245 lb 12.8 oz) 11/03/2024 1:53 PM SWITCH MAKER Height 167.6 cm (5' 6 ) 10/16/2024 9:28 AM SWITCH MAKER Body Mass Index 39.67 10/16/2024 9:28 AM SWITCH MAKER Plan of Treatment Not on file Procedures Procedure Name Priority Date/Time Associated Diagnosis Comments PAP WITH REFLEX TO HIGH RISK HPV Routine 11/03/2024 4:37 PM SWITCH MAKER Encounter for routine follow-up THINPREP PROCESSING (MOLECULAR COMPONENT) Routine 11/03/2024 4:37 PM SWITCH MAKER Encounter for routine follow-up URINALYSIS, MICROSCOPIC ONLY STAT 10/16/2024 11:21 AM SWITCH MAKER URINE CULTURE STAT 10/16/2024 11:21 AM SWITCH MAKER URINALYSIS AND REFLEX TO MICROSCOPIC AND CULTURE STAT 10/16/2024 11:21 AM SWITCH MAKER ECG 12-LEAD STAT 10/16/2024 10:36 AM SWITCH MAKER EGFR Add On 10/16/2024 9:47 AM SWITCH MAKER DIFFERENTIAL AUTO Add On 10/16/2024 9:4 7 AM SWITCH MAKER COMPREHENSIVE METABOLIC PANEL Add-On 10/16/2024 9:47 AM SWITCH MAKER CBC WITH AUTO DIFFERENTIAL Add-On 10/16/2024 9:47 AM SWITCH MAKER BLEED SCREEN Timed 09/20/2024 4: 48 AM SWITCH MAKER ABO/RH Timed 09/20/2024 4:48 AM SWITCH MAKER CBC WITHOUT DIFFERENTIAL Routine 09/20/2024 4:48 AM SWITCH MAKER RH IMMUNE GLOBULIN EVAL Timed 09/20/2024 4:48 AM SWITCH MAKER SURGICAL PATHOLOGY Routine 09/19/2024 4: 06 PM SWITCH MAKER ANESTHESIA EPIDURAL BLOCK Routine 09/19/2024 2:45 PM SWITCH MAKER SECTION 09/19/2024 1:56 PM SWITCH MAKER TIUP Case Notes PreE w/ SF and Multiple gestation EGFR Timed 09/18/2024 6:21 AM SWITCH MAKER COMPREHENSIVE METABOLIC PANEL Timed 09/18/2024 6:21 AM SWITCH MAKER CBC WITHOUT DIFFERENTIAL Timed 09/18/2024 6:21 AM SWITCH MAKER TYPE AND SCREEN Timed 09/18/2024 6:21 AM SWITCH MAKER NONSTRESS TEST Routine 09/17/2024 2:58 PM SWITCH MAKER Preeclampsia, unspecified trimester 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 US OB FOLLOW UP IP Routine 09/15/2024 1:08 PM SWITCH MAKER EGFR Timed 09/15/2024 6:17 AM SWITCH MAKER COMPREHENSIVE METABOLIC PANEL Timed 09/15/2024 6:17 AM SWITCH MAKER CBC WITHOUT DIFFERENTIAL Timed 09/15/2024 6:17 AM SWITCH MAKER TYPE AND SCREEN Timed 09/15/2024 6:17 AM SWITCH MAKER NONSTRESS TEST Routine 09/13/2024 5:10 PM SWITCH MAKER Preeclampsia, unspecified trimester 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 EGFR Timed 09/12/2024 6:35 AM SWITCH MAKER COMPREHENSIVE METABOLIC PANEL Timed 09/12/2024 6:35 AM SWITCH MAKER CBC WITHOUT DIFFERENTIAL Timed 09/12/2024 6:35 AM SWITCH MAKER TYPE AND SCREEN Timed 09/12/2024 6:35 AM SWITCH MAKER EGFR Timed 09/09/2024 6:24 AM SWITCH MAKER COMPREHENSIVE METABOLIC PANEL Timed 09/09/2024 6:24 AM SWITCH MAKER CBC WITHOUT DIFFERENTIAL Timed 09/09/2024 6:24 AM SWITCH MAKER TYPE AND SCREEN Timed 09/09/2024 6:24 AM SWITCH MAKER US OB LIMITED IP Routine 09/08/2024 10:29 AM SWITCH MAKER NONSTRESS TEST Routine 09/06/2024 8:38 PM SWITCH MAKER Preeclampsia, unspecified trimester 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 EGFR Timed 09/06/2024 4:31 AM SWITCH MAKER COMPREHENSIVE METABOLIC PANEL Timed 09/06/2024 4:31 AM SWITCH MAKER CBC WITHOUT DIFFERENTIAL Timed 09/06/2024 4:31 AM SWITCH MAKER TYPE AND SCREEN Timed 09/06/2024 4:31 AM SWITCH MAKER GROUP B STREPTOCOCCUS CULTURE Routine 09/03/2024 10:29 AM SWITCH MAKER EGFR Timed 09/03/2024 5:26 AM SWITCH MAKER COMPREHENSIVE METABOLIC PANEL Timed 09/03/2024 5:26 AM SWITCH MAKER CBC WITHOUT DIFFERENTIAL Timed 09/03/2024 5:26 AM SWITCH MAKER TYPE AND SCREEN Timed 09/03/2024 5:26 AM SWITCH MAKER ECG 12-LEAD Routine 09/02/2024 4:33 PM SWITCH MAKER EGFR Timed 08/31/2024 6:20 AM SWITCH MAKER COMPREHENSIVE METABOLIC PANEL Timed 08/31/2024 6:20 AM SWITCH MAKER CBC WITHOUT DIFFERENTIAL Timed 08/31/2024 6:20 AM SWITCH MAKER TYPE AND SCREEN Timed 08/31/2024 6:20 AM SWITCH MAKER NONSTRESS TEST Routine 08/29/2024 2:32 PM SWITCH MAKER Preeclampsia, unspecified trimester 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 NONSTRESS TEST Routine 08/28/2024 7:47 PM SWITCH MAKER Preeclampsia, unspecified trimester 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 EGFR Timed 08/28/2024 6:00 AM SWITCH MAKER COMPREHENSIVE METABOLIC PANEL Timed 08/28/2024 6:00 AM SWITCH MAKER CBC WITHOUT DIFFERENTIAL Timed 08/28/2024 6:00 AM SWITCH MAKER TYPE AND SCREEN Timed 08/28/2024 6:00 AM SWITCH MAKER EGFR Timed 08/25/2024 6:19 AM SWITCH MAKER COMPREHENSIVE METABOLIC PANEL Timed 08/25/2024 6:19 AM SWITCH MAKER CBC WITHOUT DIFFERENTIAL Timed 08/25/2024 6:19 AM SWITCH MAKER TYPE AND SCREEN Timed 08/25/2024 6:19 AM SWITCH MAKER US OB FOLLOW UP IP Routine 08/24/2024 9:37 AM SWITCH MAKER EGFR Timed 08/22/2024 6:02 AM SWITCH MAKER COMPREHENSIVE METABOLIC PANEL Timed 08/22/2024 6:02 AM SWITCH MAKER CBC WITHOUT DIFFERENTIAL Timed 08/22/2024 6:02 AM SWITCH MAKER TYPE AND SCREEN Timed 08/22/2024 6:02 AM SWITCH MAKER EGFR Timed 08/19/2024 6:25 AM SWITCH MAKER COMPREHENSIVE METABOLIC PANEL Timed 08/19/2024 6:25 AM SWITCH MAKER CBC WITHOUT DIFFERENTIAL Timed 08/19/2024 6:25 AM SWITCH MAKER TYPE AND SCREEN Timed 08/19/2024 6:25 AM SWITCH MAKER US OB LIMITED IP Routine 08/16/2024 8:35 AM SWITCH MAKER ANTIBODY IDENTIFICATION Routine 08/16/2024 7:34 AM SWITCH MAKER EGFR Timed 08/16/2024 6:15 AM SWITCH MAKER THYROID FUNCTION CASCADE Routine 08/16/2024 6:15 AM SWITCH MAKER COMPREHENSIVE METABOLIC PANEL Timed 08/16/2024 6:15 AM SWITCH MAKER CBC WITHOUT DIFFERENTIAL Timed 08/16/2024 6:15 AM SWITCH MAKER TYPE AND SCREEN Timed 08/16/2024 6:15 AM SWITCH MAKER POCT GLUCOSE DEVICE Routine 08/14/2024 3 :06 PM SWITCH MAKER ECG 12-LEAD Routine 08/13/2024 9:02 AM SWITCH MAKER ANTIBODY IDENTIFICATION Routine 08/13/2024 7:42 AM SWITCH MAKER EGFR Timed 08/13/2024 5:44 AM SWITCH MAKER COMPREHENSIVE METABOLIC PANEL Timed 08/13/2024 5:44 AM SWITCH MAKER CBC WITHOUT DIFFERENTIAL Timed 08/13/2024 5:44 AM SWITCH MAKER TYPE AND SCREEN Timed 08/13/2024 5:44 AM SWITCH MAKER RPR Routine 08/13/2024 5:44 AM SWITCH MAKER HIV 1/2 ANTIBODY PLUS P24 ANTIGEN Routine 08/13/2024 5:44 AM SWITCH MAKER HEPATITIS C ANTIBODY Routine 05/20/2024 2:47 PM CDT Encounter for supervision of normal first in first trimester 11 weeks gestation of from Last 3 Months or Most Recently Relevant to Health Maintenance Results * ThinPrep processing (Molecular component) (11/03/2024 4:37 PM SWITCH MAKER) ThinPrep processing (Molecular component) Specimen received for processing. [facility] Endocervical 11/03/2024 4:37 PM SWITCH MAKER 11/07/2024 8:41 AM SWITCH MAKER us Jada Ngo ICER HAND LAB BODY FLUIDS AND STOOLS ORDERABLES Final Result [facility] [place] [address] [facility] * Pap with reflex to High Risk HPV and Genotyping (Cytology Component) (11/03/2024 4:37 PM SWITCH MAKER) Thin prep (Pap test) 11/03/2024 4:37 PM SWITCH MAKER 11/03/2024 5:54 PM SWITCH MAKER Narrative PATHOLOGY [facility] - 11/11/2024 3:38 PM SWITCH MAKER EPIC results best viewed via link to PDF [facility] [place] [address] Note to Patients: This report may contain [...] Gender: Bhumi : 1995 (Age: 29) Address: [address] [place], [place] [phone] 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 MACHINE OPERATOR Location: Patient Type: [facility] SPECIMEN Taken: 11/03/2024 Received: 11/03/2024 Accessioned: 11/07/2024 Reported: 11/11/2024 Physician(s): CORBY Billings FINAL INTERPRETATION SOURCE OF SPECIMEN Liquid based Thin Prep pap with Reflex HPV: STATEMENT OF ADEQUACY - Satisfactory for evaluation - Endocervical cells/transformation zone sample absent GENERAL CATEGORIZATION: - Negative for squamous intraepithelial lesion or malignancy lwl/11/11/2024 15:38 Martinez Kingston SHANTEL KRAUS(ASCP)PA Report Electronically Reviewed and Signed Out By Martinez Kingston SHANTEL KRAUS(ASCP)[place] 11/11/2024 15:38:05 Cervicovaginal Cytology (Pap Test) Disclaimer: The Pap test is a screening test used to detect cervical cancer and its precursors; it is not a diagnostic procedure. False negative and false positive results do occur. Pap test results should be interpreted in the context of pertinent clinical information and biopsy results as indicated. [facility] Clinical Laboratory Improvement Amendments (CLIA) mandate that cytologic and histologic results be correlated for laboratory quality intern & improvement standards. FOR ALL HIGH-GRADE CASES [...] determined by the Surgical Pathology Department at [facility] as part of an ongoing quality assurance supervisor final program and in compliance with federally mandated [...] determined by the Surgical Pathology Department of [facility]. It has not been cleared or approved by the U. S. Food and Drug Administration. Jada Ngo NP LAB CYTOLOGY ORDERA BLES Final Result PATHOLOGY [facility] IOH 3rd Floor [place], [place] [phone] * (ABNORMAL) Urinalysis reflex to microscopic and culture Urine (10/16/2024 11:21 AM SWITCH MAKER) Color, ur Yellow Yellow Clarity, ur Clear [...] tendency for uric acid stone formation. Source: [facility] [employer] Current Interpretive Data was last revised on [...] [facility] ([place]) Urine 10/16/2024 11:2 1 AM SWITCH MAKER 10/16/2024 11:23 AM SWITCH MAKER us Satnam Nair MD LAB MICROBIOLOGY - GENERAL O RDERABLES Final Result [facility] ([place]) 1 [facility] Department [place] [address] * (ABNORMAL) Urinalysis, microscopic only (10/16/2024 11:21 AM SWITCH MAKER) WBC, ur 11-20(A) 0 - 5 /HPF RBC, ur >50(A) 0 - 2 /HPF [facility] ([place]) Epithelial cells, squamous, ur 1-5 0 - 5 /HPF [facility] ([place]) Bacteria, ur Trace(A) XUNER [facility] ([place]) Mucous, ur Present(A) [facility] A ([place]) Culture Reflex Comment Reflex to urine culture will be performed. [facility] ([place]) Urine 10/16/2024 11:2 1 AM SWITCH MAKER 10/16/2024 11:23 AM SWITCH MAKER Satnam Nair MD LAB URINE ORDERABLES Final R esult Performing Organization Address City/[facility]/ZIP Co de Phone Number BIA [facility] ([place]) 1 [facility] [employer] [place] [address] * Urine culture Urine (10/16/2024 11:21 AM SWITCH MAKER) Report Final Report: Less than 100,000 colonies/mL (clinically insignificant growth based on current clinical standards) Comment:Testing performed by : [facility], [address] [place] [address] Organism (CLINICALLY INSIGNIFICANT GROWTH [facility] ([place]) Urine 10/16/2024 11:2 1 AM SWITCH MAKER 10/16/2024 2:00 PM SWITCH MAKER Narrative [facility] ([place]) - 10/17/2024 3:36 PM SWITCH MAKER Urine culture reflexed based upon urinalysis results. Testing performed by [facility] Microbiology Laboratory ([phone]) Satnam Nair MD LAB MICROBIOLOGY - GENERAL O RDERABLES Final Result [facility] ([place]) 1 [facility] [place] [address] * ECG 12 lead (10/16/2024 10:36 AM SWITCH MAKER) 10/16/2024 10:3 6 AM SWITCH MAKER Narrative [facility] - 10/17/2024 8:41 AM SWITCH MAKER Vent Rate: 65 bpm RR Interval: [address] Interval: 147 msec QRS Duration: 101 msec QT Interval: 408 msec QTC Interval: 419 msec P-R-T [place]: 54 - 21 - 47 degrees IMPRESSION: SINUS RHYTHM NORMAL ECG Electronically Signed By: Dallas Ahn MD Satnam Nair MD ECG ORDERABLES Final Result [facility] * eGFR (10/16/2024 9:47 AM SWITCH MAKER) eGFR >90 >=60 mL/min/1. 73 m2 [...] last reviewed 2021. Blood 10/16/2024 9:47 AM SWITCH MAKER 10/16/2024 10:32 AM SWITCH MAKER Satnam Nair MD LAB BLOOD ORDERABLES Final R esult [facility] 1 [facility] Department [place] [address] * Differential, auto (10/16/2024 9:47 AM SWITCH MAKER) Neutrophil abs 2.8 1.5 - 6.5 K/cumm [...] revised on 2018. Blood 10/16/2024 9:47 AM SWITCH MAKER 10/16/2024 10:32 AM SWITCH MAKER us Satnam Nair MD LAB BLOOD ORDERABLES Final R esult [facility] ([place]) 1 [facility] [place] [address] * CBC with auto differential (10/16/2024 9:47 AM SWITCH MAKER) WBC 4.5 3.8 - 9.9 K/cumm Hgb [...] C[facility]ER [facility] ([place]) Blood 10/16/2024 9:47 AM SWITCH MAKER 10/16/2024 10:32 AM SWITCH MAKER Satnam Nair MD LAB BLOOD ORDERABLES Final R esult [facility] ([place]) 1 [facility] [place] [address] * Comprehensive metabolic panel (10/16/2024 9:47 AM SWITCH MAKER) Sodium 140 135 - 145 mmol/L Potassium, [...] [facility] ([place]) Blood 10/16/2024 9:47 AM SWITCH MAKER 10/16/2024 10:32 AM SWITCH MAKER us Satnam Nair MD LAB BLOOD ORDERABLES Final R esult [facility] ([place]) 1 [facility] Department [place] [address] * Rh Immune Globulin Eval (09/20/2024 4:48 AM SWITCH MAKER) RhIg Administration 1 vial of Rh Immune Globulin (300 mcg dose) RhIg Eligible Yes, eligible [facility] Blood 09/20/2024 4:48 AM SWITCH MAKER 09/20/2024 5:03 AM SWITCH MAKER Narrative [facility] - 09/20/2024 5:36 AM SWITCH MAKER Number of weeks ?->20 weeks or greater antibody screen result:->Negative Rhogam given?->Given Date Given?->08/01/24 Number of vials requested:->1 Sara Eng MD LAB BLOOD BANK TEST ORDERABL ES Final Result Performing Organization Address [facility] Co de Phone Number [facility] [place] [address] * Bleed Screen (09/20/2024 4:48 AM SWITCH MAKER) Bleed Screen Negative Blood 09/20/2024 4:48 AM SWITCH MAKER 09/20/2024 5:03 AM SWITCH MAKER us Rey Quinonez MD LAB BLOOD BANK TEST ORDERABLE S Final Result Performing Organization Address [facility] Co de Phone Number [facility] [place] [address] * ABO/Rh (09/20/2024 4:48 AM SWITCH MAKER) ABO Rh O Negative Blood 09/20/2024 4:48 AM SWITCH MAKER 09/20/2024 5:03 AM SWITCH MAKER Rey Quinonez MD LAB BLOOD BANK TEST ORDERABLE S Final Result Performing Organization Address [facility] Co de Phone Number [facility] [place] [address] * (ABNORMAL) CBC without differential (09/20/2024 4:48 AM SWITCH MAKER) WBC 10.3(H) 3.8 - 9.9 K/cumm Hgb 9.7(L) 11.9 - 15.5 g/dL [facility] Hct 28.4(L) 35.6 - 45.5 % [facility] Plt 230 150 - 400 K/cumm [facility] MPV 10.8 9.1 - 12.3 fL [facility] RBC 3.22(L) 3.90 - 5.20 M/cumm [facility] MCV 88.2 81.3 - 96.4 fL [facility] MCH 30.1 27.1 - 33.3 pg [facility] MCHC 34.2 32.3 - 35.7 g/dL [facility] RDW CV 13.9 11.1 - 14.9 % [facility] RDW SD 44.6 35.7 - 48.1 fL [facility] NRBC abs 0.00 0.00 - 0.01 K/cumm [facility] Blood 09/20/2024 4:48 AM SWITCH MAKER 09/20/2024 5:11 AM SWITCH MAKER us Sara Eng MD LAB BLOOD ORDERABLES Final R esult [facility] [place] [address] * Surgical pathology (09/19/2024 4:06 PM SWITCH MAKER) Tissue (Placenta) 09/19/2024 4:06 PM SWITCH MAKER 09/20/2024 8:37 AM SWITCH MAKER Narrative PATHOLOGY [facility] - 09/26/2024 2:16 PM SWITCH MAKER EPIC results best viewed via link to PDF [facility] [place] [address] Note to Patients: This report may contain [...] Gender: F : 1995 (Age: 29) Address: [address] [place] [id number] Hospital #: [id number] Taken:09/19/2024 Received:09/20/2024 Reported: 09/26/2024 Patient Type: [facility] Inpatient Service: Obstetrics Location: [place] [address] Physician(s): MD Sara Parker M.D. Diagnosis: Placenta, delivery - 662 grams diamnionic, monochorionic, pre-term twin placenta - Acute atherosis - Accelerated villous maturation -Trivascular cords with no histopathologic abnormalities [facility]/09/26/2024 14:16 By this signature, I attest [...] discrete lesions or infarcts are grossly identified. Stamps [employer] Coins Salesperson sections are submitted: A1 = arbitrarily assigned twin A, cord and membranes; A2-4 = twin A, fuels sales representative parenchyma; A5 = common membrane and T-zone; A6 = arbitrarily assigned twin B, cord and membranes; A7-9 = twin B, fuels sales representative parenchyma. Jar 3. sxv/09/21/2024 11:11 PA(s): Catalino Hernandez, MS, PA ([facility])CM By this signature, I attest that the above diagnosis is based upon my personal examination of the slides(and/or other material). Addenda/Procedures The performance characteristics of some immunohistochemical stains, fluorescence in-situ hybridization tests and immunophenotyping by flow cytometry cited in this report (if any) were determined by the Surgical Pathology and Flow Cytometry Departments at [facility] as part of an ongoing quality assurance supervisor final program and in compliance with federally mandated [...] Pathology and Flow Cytometry Departments of [facility]. It has not been cleared or approved by the U. S. Food and Drug Administration. IMAGES AND SCANNED DOCUMENTS, IF INCLUDED, ONLY VIEWABLE IN PDF VERSION OF REPORT us Sara Eng MD LAB PATHOLOGY ORDERABLES Fin al Result PATHOLOGY [facility] 3rd Floor [place], [place] [phone] * Epidural Block (09/19/2024 2:45 PM SWITCH MAKER) Narrative Abena Denton MD - 09/19/2024 2:45 PM SWITCH MAKER Abena Denton MD 09/19/2024 2:50 PM Epidural [...] Final Result * eGFR (09/18/2024 6:21 AM SWITCH MAKER) eGFR >90 >=60 mL/min/1. 73 m2 [...] last reviewed 2021. Blood 09/18/2024 6:21 AM SWITCH MAKER 09/18/2024 6:32 AM SWITCH MAKER Anastasia Amaro MD LAB BLOOD ORDERABLES Final Result Performing Organization Address City/[facility]/ZIP Co de Phone Number [facility] [place] [address] * (ABNORMAL) CBC without differential (09/18/2024 6:21 AM SWITCH MAKER) Pathologist [facility] WBC 10.0(H) 3.8 - 9.9 K/cumm Hgb 11.6(L) 11.9 - 15.5 g/dL [facility] Hct 34.0(L) 35.6 - 45.5 % [facility] Plt 250 150 - 400 K/cumm [facility] MPV 11.0 9.1 - 12.3 fL [facility] RBC 3.92 3.90 - 5.20 M/cumm [facility] MCV 86.7 81.3 - 96.4 fL [facility] MCH 29.6 27.1 - 33.3 pg [facility] MCHC 34.1 32.3 - 35.7 g/dL [facility] RDW CV 13.7 11.1 - 14.9 % [facility] RDW SD 43.1 35.7 - 48.1 fL [facility] NRBC abs 0.00 0.00 - 0.01 K/cumm [facility] Blood 09/18/2024 6:21 AM SWITCH MAKER 09/18/2024 6:32 AM SWITCH MAKER Anastasia Amaro MD LAB BLOOD ORDERABLES Final Result Performing Organization Address City/[facility]/ZIP Co de Phone Number [facility] [place] [address] * Type and screen (09/18/2024 6:21 AM SWITCH MAKER) Abiodun, indirect Negative ABO Rh O Negative [facility] Blood 09/18/2024 6:21 AM SWITCH MAKER 09/18/2024 6:35 AM SWITCH MAKER Narrative [facility] - 09/18/2024 7:42 AM SWITCH MAKER Has the patient had Daratumumab or Isatuximab in the past 6 months?->Unknown Anastasia Amaro MD LAB BLOOD BANK TEST ORDERA BLES Final Result [facility] [place] [address] * (ABNORMAL) Comprehensive metabolic panel (09/18/2024 6:21 AM SWITCH MAKER) Pathologist [facility] Sodium 134(L) 135 - 145 mmol/L Potassium, pl 3.8 3.3 - 4.9 mmol/L [facility] Chloride 105 97 - 110 mmol/L [facility] CO2 23 22 - 32 mmol/L [facility] Anion gap 6 2 - 15 mmol/L [facility] BUN 9 6 - 25 mg/dL [facility] Creatinine 0.69 0.60 - 1.10 mg/dL [facility] Glucose 68(L) 70 - 199 mg/dL [facility] Comment: Interpretive Data Fasting glucose >/= 126 [...] 2022. Calcium 9.0 8.5 - 10.3 mg/dL [facility] Bilirubin, total 0.2 0.1 - 1.2 mg/dL [facility] Protein, pl 6.3(L) 6.5 - 8.5 g/dL [facility] Albumin 3.0(L) 3.5 - 5.0 g/dL [facility] Alk phos 125 40 - 130 Units/L [facility] ALT 14 7 - 45 Units/L [facility] AST 16 10 - 45 Units/L [facility] Blood 09/18/2024 6:21 AM SWITCH MAKER 09/18/2024 6:32 AM SWITCH MAKER us Anastasia Amaro MD LAB BLOOD ORDERABLES Final Result [facility] [place] [address] * nonstress test (09/17/2024 2:58 PM SWITCH MAKER) Narrative Sandra Christy MD - 09/17/2024 2:58 PM SWITCH MAKER Joellen Schilling MD 09/17/2024 4:04 PM nonstress test Date/Time: 09/17/2024 2:58 PM Performed by: Maureen Calix MD Authorized by: Ana M Rogers MD us Ana M Rogers MD OB GYNE ORDERABLES Fi nal Result * US Ob Follow Up (09/15/2024 1:08 PM SWITCH MAKER) Fetus# Fetus1 VIEWPOINT Estimated Weight 1,709 g&grams VIEWPOINT Placenta Details anterior VIEWPOINT Presentation Vertex; Maternal right- low VIEWPOINT Fetus# Fetus2 VIEWPOINT Estimated Weight 2,585 g&grams VIEWPOINT Placenta Details anterior VIEWPOINT Presentation Vertex; Maternal left- high VIEWPOINT Anatomical Region Laterality Modality Abdomen N/A Ultrasound 09/15/2024 1:08 PM SWITCH MAKER Impressions 09/15/2024 2:24 PM SWITCH MAKER Diamniotic (presumed MCDA) TIUP at 33w33d who is admitted for preE with severe features who presents for growth US was previously determined to be monochorionic by the [facility] MFM practice. A thin dividing membrane [...] previously determined to be monochorionic by the [facility] MFMpractice. A thin dividing membrane and [...] R esult * eGFR (09/15/2024 6:17 AM SWITCH MAKER) eGFR >90 >=60 mL/min/1. 73 m2 [...] last reviewed 2021. Blood 09/15/2024 6:17 AM SWITCH MAKER 09/15/2024 6:31 AM SWITCH MAKER us Anastasia Amaro MD LAB BLOOD ORDERABLES Final Result [facility] [place] [address] * (ABNORMAL) CBC without differential (09/15/2024 6:17 AM SWITCH MAKER) [facility] WBC 10.1(H) 3.8 - 9.9 K/cumm Hgb 11.7(L) 11.9 - 15.5 g/dL [facility] Hct 34.6(L) 35.6 - 45.5 % [facility] Plt 253 150 - 400 K/cumm [facility] MPV 11.2 9.1 - 12.3 fL [facility] RBC 3.94 3.90 - 5.20 M/cumm [facility] MCV 87.8 81.3 - 96.4 fL [facility] MCH 29.7 27.1 - 33.3 pg [facility] MCHC 33.8 32.3 - 35.7 g/dL [facility] RDW CV 13.8 11.1 - 14.9 % [facility] RDW SD 44.1 35.7 - 48.1 fL [facility] NRBC abs 0.00 0.00 - 0.01 K/cumm [facility] Blood 09/15/2024 6:17 AM SWITCH MAKER 09/15/2024 6:31 AM SWITCH MAKER Anastasia Amaro MD LAB BLOOD ORDERABLES Final Result [facility] [place] [address] * Type and screen (09/15/2024 6:17 AM SWITCH MAKER) [facility] Abiodun, indirect Negative Comment:Patient has previous antibody history ABO Rh O Negative [facility] Blood 09/15/2024 6:17 AM SWITCH MAKER 09/15/2024 6:30 AM SWITCH MAKER Narrative [facility] - 09/15/2024 7:57 AM SWITCH MAKER Has the patient had Daratumumab or Isatuximab in the past 6 months?->Unknown Anastasia Amaro MD LAB BLOOD BANK TEST ORDERA BLES Final Result [facility] [place] [address] * (ABNORMAL) Comprehensive metabolic panel (09/15/2024 6:17 AM SWITCH MAKER) Sodium 139 135 - 145 mmol/L Potassium, pl 3.5 3.3 - 4.9 mmol/L [facility] Chloride 106 97 - 110 mmol/L [facility] CO2 21(L) 22 - 32 mmol/L [facility] Anion gap 12 2 - 15 mmol/L [facility] BUN 8 6 - 25 mg/dL [facility] Creatinine 0.66 0.60 - 1.10 mg/dL [facility] Glucose 106 70 - 199 mg/dL [facility] Comment: Interpretive Data Fasting glucose >/= 126 [...] 2022. Calcium 9.0 8.5 - 10.3 mg/dL [facility] Bilirubin, total <0.2 0.1 - 1.2 mg/dL [facility] Protein, pl 6.4(L) 6.5 - 8.5 g/dL [facility] Albumin 3.0(L) 3.5 - 5.0 g/dL [facility] Alk phos 124 40 - 130 Units/L [facility] ALT 19 7 - 45 Units/L [facility] AST 20 10 - 45 Units/L [facility] Blood 09/15/2024 6:17 AM SWITCH MAKER 09/15/2024 6:31 AM SWITCH MAKER Anastasia Amaro MD LAB BLOOD ORDERABLES Final Result [facility] [place] [address] * nonstress test (09/13/2024 5:10 PM SWITCH MAKER) Narrative Sandra Christy MD - 09/13/2024 5:10 PM SWITCH MAKER Anastasia Plaza MD 09/13/2024 5:21 PM 29 y.o. at [...] nal Result * eGFR (09/12/2024 6:35 AM SWITCH MAKER) eGFR >90 >=60 mL/min/1. 73 m2 [...] last reviewed 2021. Blood 09/12/2024 6:35 AM SWITCH MAKER 09/12/2024 6:51 AM SWITCH MAKER Anastasia Amaro MD LAB BLOOD ORDERABLES Final Result Performing Organization Address City/[facility] Co de Phone Number [facility] [place] [address] * (ABNORMAL) CBC without differential (09/12/2024 6:35 AM SWITCH MAKER) Pathologist [facility] WBC 10.0(H) 3.8 - 9.9 K/cumm Hgb 11.8(L) 11.9 - 15.5 g/dL [facility] Hct 35.3(L) 35.6 - 45.5 % [facility] Plt 226 150 - 400 K/cumm [facility] MPV 11.2 9.1 - 12.3 fL [facility] RBC 3.97 3.90 - 5.20 M/cumm [facility] MCV 88.9 81.3 - 96.4 fL [facility] MCH 29.7 27.1 - 33.3 pg [facility] MCHC 33.4 32.3 - 35.7 g/dL [facility] RDW CV 13.8 11.1 - 14.9 % [facility] RDW SD 44.5 35.7 - 48.1 fL [facility] NRBC abs 0.02(H) 0.00 - 0.01 K/cumm [facility] Blood 09/12/2024 6:35 AM SWITCH MAKER 09/12/2024 6:52 AM SWITCH MAKER us Anastasia Amaro MD LAB BLOOD ORDERABLES Final Result [facility] [place] [address] * Type and screen (09/12/2024 6:35 AM SWITCH MAKER) Pathologist [facility] ABO Rh O Negative Abiodun, indirect Negative [facility] Comment:Patient has previous antibody history Blood 09/12/2024 6:35 AM SWITCH MAKER 09/12/2024 6:48 AM SWITCH MAKER Narrative [facility] - 09/12/2024 7:49 AM SWITCH MAKER Has the patient had Daratumumab or Isatuximab in the past 6 months?->Unknown Anastasia Amaro MD LAB BLOOD BANK TEST ORDERA BLES Final Result [facility] [place] [address] * (ABNORMAL) Comprehensive metabolic panel (09/12/2024 6:35 AM SWITCH MAKER) [facility] Sodium 139 135 - 145 mmol/L Potassium, pl 3.8 3.3 - 4.9 mmol/L [facility] Chloride 107 97 - 110 mmol/L [facility] CO2 22 22 - 32 mmol/L [facility] Anion gap 10 2 - 15 mmol/L [facility] BUN 6 6 - 25 mg/dL [facility] Creatinine 0.64 0.60 - 1.10 mg/dL [facility] Glucose 69(L) 70 - 199 mg/dL [facility] Comment: Interpretive Data Fasting glucose >/= 126 [...] 2022. Calcium 8.8 8.5 - 10.3 mg/dL [facility] Bilirubin, total <0.2 0.1 - 1.2 mg/dL [facility] Protein, pl 6.4(L) 6.5 - 8.5 g/dL [facility] Albumin 3.1(L) 3.5 - 5.0 g/dL [facility] Alk phos 122 40 - 130 Units/L [facility] ALT 22 7 - 45 Units/L [facility] AST 23 10 - 45 Units/L [facility] Blood 09/12/2024 6:35 AM SWITCH MAKER 09/12/2024 6:51 AM SWITCH MAKER Anastasia Amaro MD LAB BLOOD ORDERABLES Final Result Performing Organization Address [facility] de Phone Number [facility] [place] [address] * eGFR (09/09/2024 6:24 AM SWITCH MAKER) Pathologist [facility] eGFR >90 [...] last reviewed 2021. Blood 09/09/2024 6:24 AM SWITCH MAKER 09/09/2024 6:52 AM SWITCH MAKER Anastasia Amaro MD LAB BLOOD ORDERABLES Final Result Performing Organization Address [facility] Co de Phone Number [facility] [place] [address] * (ABNORMAL) CBC without differential (09/09/2024 6:24 AM SWITCH MAKER) [facility] WBC 8.6 3.8 - 9.9 K/cumm Hgb 10.9(L) 11.9 - 15.5 g/dL [facility] Hct 33.1(L) 35.6 - 45.5 % [facility] Plt 239 150 - 400 K/cumm [facility] MPV 11.0 9.1 - 12.3 fL [facility] RBC 3.77(L) 3.90 - 5.20 M/cumm [facility] MCV 87.8 81.3 - 96.4 fL [facility] MCH 28.9 27.1 - 33.3 pg [facility] MCHC 32.9 32.3 - 35.7 g/dL [facility] RDW CV 13.8 11.1 - 14.9 % [facility] RDW SD 43.8 35.7 - 48.1 fL [facility] NRBC abs 0.00 0.00 - 0.01 K/cumm [facility] Blood 09/09/2024 6:24 AM SWITCH MAKER 09/09/2024 6:52 AM SWITCH MAKER us Anastasia Amaro MD LAB BLOOD ORDERABLES Final Result Performing Organization Address City/[facility] Co de Phone Number [facility] [place] [address] * Type and screen (09/09/2024 6:24 AM SWITCH MAKER) Pathologist [facility] ABO Rh O Negative Abiodun, indirect Negative [facility] Comment:Patient has previous antibody history Blood 09/09/2024 6:24 AM SWITCH MAKER 09/09/2024 7:19 AM SWITCH MAKER Narrative [facility] - 09/09/2024 8:51 AM SWITCH MAKER Has the patient had Daratumumab or Isatuximab in the past 6 months?->Unknown Anastasia Amaro MD LAB BLOOD BANK TEST ORDERA BLES Final Result Performing Organization Address City/[facility]/ZIP Co de Phone Number [facility] [place] [address] * (ABNORMAL) Comprehensive metabolic panel (09/09/2024 6:24 AM SWITCH MAKER) Sodium 141 135 - 145 mmol/L Potassium, pl 3.8 3.3 - 4.9 mmol/L [facility] Chloride 108 97 - 110 mmol/L [facility] CO2 22 22 - 32 mmol/L [facility] Anion gap 11 2 - 15 mmol/L [facility] BUN 8 6 - 25 mg/dL [facility] Creatinine 0.75 0.60 - 1.10 mg/dL [facility] Glucose 70 70 - 199 mg/dL [facility] Comment: Interpretive Data Fasting glucose >/= 126 [...] 2022. Calcium 8.9 8.5 - 10.3 mg/dL [facility] Bilirubin, total <0.2 0.1 - 1.2 mg/dL [facility] Protein, pl 6.2(L) 6.5 - 8.5 g/dL [facility] Albumin 3.2(L) 3.5 - 5.0 g/dL [facility] Alk phos 117 40 - 130 Units/L [facility] ALT 22 7 - 45 Units/L [facility] AST 23 10 - 45 Units/L [facility] Blood 09/09/2024 6:24 AM SWITCH MAKER 09/09/2024 6:52 AM SWITCH MAKER us Anastasia Amaro MD LAB BLOOD ORDERABLES Final Result [facility] Department [place] [address] * US Ob Limited (09/08/2024 10:29 AM SWITCH MAKER) Fetus# Fetus1 VIEWPOINT Placenta Details anterior VIEWPOINT Presentation Vertex; Maternal right- low VIEWPOINT Fetus# Fetus2 VIEWPOINT Placenta Details anterior VIEWPOINT Presentation Vertex; Maternal left- high (presenting) VIEWPOINT Anatomical Region Laterality Modality Abdomen N/A Ultrasound 09/08/2024 10:2 9 AM SWITCH MAKER Impressions 09/08/2024 11:25 AM SWITCH MAKER 1. Mo/di twin IUP at 32w [...] esult * nonstress test (09/06/2024 8:38 PM SWITCH MAKER) Narrative Anastasia Amaro MD - 09/06/2024 8:38 PM SWITCH MAKER Pauline Simms MD 09/06/2024 8:41 PM Baby A FHR Baseline: 125 Variability: moderate Accelerations: absent Decelerations: absent in last part of tracing, was initially having small variable decels in monitoring Reactive: Yes Baby B FHR Baseline: 130 Variability: moderate Accelerations: present Decelerations: absent Reactive: Yes 29 y.o. at 32w1d a/f preeclampsia with SF On monitor [id number] Contractions: absent I have reviewed NST and instructed RN to take off monitor Pauline Simms MD us Ana M Rogers MD OB GYNE ORDERABLES Fi nal Result * eGFR (09/06/2024 4:31 AM SWITCH MAKER) Pathologist [facility] eGFR >90 [...] last reviewed 2021. Blood 09/06/2024 4:31 AM SWITCH MAKER 09/06/2024 4:53 AM SWITCH MAKER us Anastasia Amaro MD LAB BLOOD ORDERABLES Final Result [facility] Department [place] [address] * (ABNORMAL) CBC without differential (09/06/2024 4:31 AM SWITCH MAKER) Pathologist [facility] WBC 10.3(H) 3.8 - 9.9 K/cumm Hgb 11.7(L) 11.9 - 15.5 g/dL [facility] Hct 34.5(L) 35.6 - 45.5 % [facility] Plt 249 150 - 400 K/cumm [facility] MPV 11.1 9.1 - 12.3 fL [facility] RBC 3.96 3.90 - 5.20 M/cumm [facility] MCV 87.1 81.3 - 96.4 fL [facility] MCH 29.5 27.1 - 33.3 pg [facility] MCHC 33.9 32.3 - 35.7 g/dL [facility] RDW CV 13.6 11.1 - 14.9 % [facility] RDW SD 42.7 35.7 - 48.1 fL [facility] NRBC abs 0.00 0.00 - 0.01 K/cumm [facility] Blood 09/06/2024 4:31 AM SWITCH MAKER 09/06/2024 4:54 AM SWITCH MAKER Anastasia Amaro MD LAB BLOOD ORDERABLES Final Result Performing Organization Address City/[facility] Co de Phone Number [facility] [place] [address] * Type and screen (09/06/2024 4:31 AM SWITCH MAKER) [facility] ABO Rh O Negative Abiodun, indirect Negative [facility] Comment:Patient has previous antibody history Blood 09/06/2024 4:31 AM SWITCH MAKER 09/06/2024 6:11 AM SWITCH MAKER Narrative [facility] - 09/06/2024 7:16 AM SWITCH MAKER Has the patient had Daratumumab or Isatuximab in the past 6 months?->Unknown Anastasia Amaro MD LAB BLOOD BANK TEST ORDERA BLES Final Result Performing Organization Address [facility] Co de Phone Number [facility] [place] [address] * (ABNORMAL) Comprehensive metabolic panel (09/06/2024 4:31 AM SWITCH MAKER) Sodium 138 135 - 145 mmol/L Potassium, pl 3.6 3.3 - 4.9 mmol/L [facility] Chloride 105 97 - 110 mmol/L [facility] CO2 24 22 - 32 mmol/L [facility] Anion gap 9 2 - 15 mmol/L [facility] BUN 7 6 - 25 mg/dL [facility] Creatinine 0.63 0.60 - 1.10 mg/dL [facility] Glucose 62(L) 70 - 199 mg/dL [facility] Comment: Interpretive Data Fasting glucose >/= 126 [...] 2022. Calcium 9.3 8.5 - 10.3 mg/dL [facility] Bilirubin, total 0.3 0.1 - 1.2 mg/dL [facility] Protein, pl 6.6 6.5 - 8.5 g/dL [facility] Albumin 3.2(L) 3.5 - 5.0 g/dL [facility] Alk phos 118 40 - 130 Units/L [facility] ALT 23 7 - 45 Units/L [facility] AST 22 10 - 45 Units/L [facility] Blood 09/06/2024 4:31 AM SWITCH MAKER 09/06/2024 4:53 AM SWITCH MAKER us Anastasia Amaro MD LAB BLOOD ORDERABLES Final Result [facility] [place] [address] * Group B streptococcal culture Vaginal/Rectal (09/03/2024 10:29 AM SWITCH MAKER) Report Final Report: Negative Vaginal/Rectal 09/03/2024 10 :29 AM SWITCH MAKER 09/03/2024 10:47 AM SWITCH MAKER Narrative [facility] - 09/07/2024 11:05 AM SWITCH MAKER Testing performed by [facility] ([phone]). us Joellen Julio MD LAB MICROBIOLOGY - GENERAL O RDERABLES Final Result Performing Organization Address City/[facility]/ZIP Co de Phone Number [facility] [place] [address] * eGFR (09/03/2024 5:26 AM SWITCH MAKER) eGFR >90 >=60 mL/min/1. 73 m2 [...] last reviewed 2021. Blood 09/03/2024 5:26 AM SWITCH MAKER 09/03/2024 5:39 AM SWITCH MAKER us Anastasia Amaro MD LAB BLOOD ORDERABLES Final Result [facility] [place] [address] * (ABNORMAL) CBC without differential (09/03/2024 5:26 AM SWITCH MAKER) [facility] WBC 12.1(H) 3.8 - 9.9 K/cumm Hgb 11.7(L) 11.9 - 15.5 g/dL [facility] Hct 34.0(L) 35.6 - 45.5 % [facility] Plt 273 150 - 400 K/cumm [facility] MPV 11.0 9.1 - 12.3 fL [facility] RBC 3.97 3.90 - 5.20 M/cumm [facility] MCV 85.6 81.3 - 96.4 fL [facility] MCH 29.5 27.1 - 33.3 pg [facility] MCHC 34.4 32.3 - 35.7 g/dL [facility] RDW CV 13.3 11.1 - 14.9 % [facility] RDW SD 41.7 35.7 - 48.1 fL [facility] NRBC abs 0.00 0.00 - 0.01 K/cumm [facility] Blood 09/03/2024 5:26 AM SWITCH MAKER 09/03/2024 5:39 AM SWITCH MAKER Anastasia Amaro MD LAB BLOOD ORDERABLES Final Result [facility] [place] [address] * Type and screen (09/03/2024 5:26 AM SWITCH MAKER) [facility] Abiodun, indirect Negative Comment:Patient has previous antibody history ABO Rh O Negative [facility] Blood 09/03/2024 5:26 AM SWITCH MAKER 09/03/2024 5:32 AM SWITCH MAKER Narrative [facility] - 09/03/2024 6:27 AM SWITCH MAKER Has the patient had Daratumumab or Isatuximab in the past 6 months?->Unknown Anastasia Amaro MD LAB BLOOD BANK TEST ORDERA BLES Final Result [facility] [place] [address] * (ABNORMAL) Comprehensive metabolic panel (09/03/2024 5:26 AM SWITCH MAKER) Sodium 139 135 - 145 mmol/L Potassium, pl 4.0 3.3 - 4.9 mmol/L [facility] Chloride 105 97 - 110 mmol/L [facility] CO2 20(L) 22 - 32 mmol/L [facility] Anion gap 14 2 - 15 mmol/L [facility] BUN 8 6 - 25 mg/dL [facility] Creatinine 0.55(L) 0.60 - 1.10 mg/dL [facility] Glucose 68(L) 70 - 199 mg/dL [facility] Comment: Interpretive Data Fasting glucose >/= 126 [...] 2022. Calcium 9.3 8.5 - 10.3 mg/dL [facility] Bilirubin, total 0.3 0.1 - 1.2 mg/dL [facility] Protein, pl 6.4(L) 6.5 - 8.5 g/dL [facility] Albumin 3.3(L) 3.5 - 5.0 g/dL [facility] Alk phos 111 40 - 130 Units/L [facility] ALT 22 7 - 45 Units/L [facility] AST 24 10 - 45 Units/L [facility] Blood 09/03/2024 5:26 AM SWITCH MAKER 09/03/2024 5:39 AM SWITCH MAKER us Anastasia Amaro MD LAB BLOOD ORDERABLES Final Result [facility] [place] [address] * ECG 12 lead (09/02/2024 4:33 PM SWITCH MAKER) Ventricular Rate EKG/Min 110 BPM [facility] Atrial Rate 110 BPM [facility] CT-Interval (MSEC) 130 ms [facility] QRS-Interval (MSEC) 82 ms [facility] QT-Interval (MSEC) 340 ms [facility] QTc 460 ms [facility] P [place] 55 degrees [facility] R [place] 22 degrees [facility] T P[place] 30 degrees [facility] Diagnosis Sinus tachycardia Otherwise normal ECG No previous ECGs available Confirmed by SAMANTA KAPLAN M.D ([id number]) on 09/06/2024 2:44:26 PM [facility] 09/02/2024 4:33 PM SWITCH MAKER 09/06/2024 2:44 PM SWITCH MAKER us Joellen Julio MD ECG ORDERABLES Final Result Performing Organization Address [facility] Co de Phone Number [facility] * eGFR (08/31/2024 6:20 AM SWITCH MAKER) eGFR >90 >=60 mL/min/1. 73 m2 [...] last reviewed 2021. Blood 08/31/2024 6:20 AM SWITCH MAKER 08/31/2024 7:25 AM SWITCH MAKER Anastasia Amaro MD LAB BLOOD ORDERABLES Final Result Performing Organization Address City/[facility] Co de Phone Number [facility] [place] [address] * (ABNORMAL) CBC without differential (08/31/2024 6:20 AM SWITCH MAKER) WBC 10.5(H) 3.8 - 9.9 K/cumm Hgb 11.5(L) 11.9 - 15.5 g/dL [facility] Hct 34.1(L) 35.6 - 45.5 % [facility] Plt 282 150 - 400 K/cumm [facility] MPV 10.9 9.1 - 12.3 fL [facility] RBC 3.93 3.90 - 5.20 M/cumm [facility] MCV 86.8 81.3 - 96.4 fL [facility] MCH 29.3 27.1 - 33.3 pg [facility] MCHC 33.7 32.3 - 35.7 g/dL [facility] RDW CV 13.7 11.1 - 14.9 % [facility] RDW SD 42.6 35.7 - 48.1 fL [facility] NRBC abs 0.00 0.00 - 0.01 K/cumm [facility] Blood 08/31/2024 6:20 AM SWITCH MAKER 08/31/2024 7:25 AM SWITCH MAKER Anastasia Amaro MD LAB BLOOD ORDERABLES Final Result Performing Organization Address City/[facility]/ZIP Co de Phone Number [facility] [place] [address] * Type and screen (08/31/2024 6:20 AM SWITCH MAKER) ABO Rh O Negative Abiodun, indirect Negative [facility] Comment:Patient has previous antibody history Blood 08/31/2024 6:20 AM SWITCH MAKER 08/31/2024 7:41 AM SWITCH MAKER Narrative [facility] - 08/31/2024 8:26 AM SWITCH MAKER Has the patient had Daratumumab or Isatuximab in the past 6 months?->Unknown Anastasia Amaro MD LAB BLOOD BANK TEST ORDERA BLES Final Result [facility] [place] [address] * (ABNORMAL) Comprehensive metabolic panel (08/31/2024 6:20 AM SWITCH MAKER) Sodium 137 135 - 145 mmol/L Potassium, pl 3.7 3.3 - 4.9 mmol/L [facility] Chloride 103 97 - 110 mmol/L [facility] CO2 22 22 - 32 mmol/L [facility] Anion gap 12 2 - 15 mmol/L [facility] BUN 6 6 - 25 mg/dL [facility] Creatinine 0.56(L) 0.60 - 1.10 mg/dL [facility] Glucose 70 70 - 199 mg/dL [facility] Comment: Interpretive Data Fasting glucose >/= 126 [...] 2022. Calcium 9.5 8.5 - 10.3 mg/dL [facility] Bilirubin, total 0.2 0.1 - 1.2 mg/dL [facility] Protein, pl 6.4(L) 6.5 - 8.5 g/dL [facility] Albumin 3.2(L) 3.5 - 5.0 g/dL [facility] Alk phos 103 40 - 130 Units/L [facility] ALT 28 7 - 45 Units/L [facility] AST 25 10 - 45 Units/L [facility] Blood 08/31/2024 6:20 AM SWITCH MAKER 08/31/2024 7:25 AM SWITCH MAKER Anastasia Amaro MD LAB BLOOD ORDERABLES Final Result [facility] [place] [address] * nonstress test (08/29/2024 2:32 PM SWITCH MAKER) Narrative Nini Cortez MD - 08/29/2024 2:32 PM SWITCH MAKER Maureen Calix MD 08/29/2024 3:38 PM nonstress test Date/Time: 08/29/2024 2:32 PM Performed by: Maureen Calix MD Authorized by: Ana M Rogers MD Ana M Rogers MD OB GYNE ORDERABLES Fi nal Result * nonstress test (08/28/2024 7:47 PM SWITCH MAKER) Narrative Nini Cortez MD - 08/28/2024 7:47 PM SWITCH MAKER Francisca Yun MD 08/28/2024 7:48 PM A FHR Baseline: 120 Variability: moderate Reactive: Yes Contractions: absent B FHR Baseline: 130 Variability: moderate Reactive: Yes Contractions: absent Comments: No decels x2 I have reviewed NST and instructed RN to take off monitor Francisca Yun MD Ana M Rogers MD OB GYNE ORDERABLES Fi nal Result * eGFR (08/28/2024 6:00 AM SWITCH MAKER) eGFR >90 >=60 mL/min/1. 73 m2 [...] last reviewed 2021. Blood 08/28/2024 6:00 AM SWITCH MAKER 08/28/2024 6:13 AM SWITCH MAKER us Anastasia Amaro MD LAB BLOOD ORDERABLES Final Result [facility] [place] [address] * (ABNORMAL) CBC without differential (08/28/2024 6:00 AM SWITCH MAKER) WBC 10.3(H) 3.8 - 9.9 K/cumm Hgb 11.2(L) 11.9 - 15.5 g/dL [facility] Hct 33.0(L) 35.6 - 45.5 % [facility] Plt 289 150 - 400 K/cumm [facility] MPV 10.7 9.1 - 12.3 fL [facility] RBC 3.78(L) 3.90 - 5.20 M/cumm [facility] MCV 87.3 81.3 - 96.4 fL [facility] MCH 29.6 27.1 - 33.3 pg [facility] MCHC 33.9 32.3 - 35.7 g/dL [facility] RDW CV 13.7 11.1 - 14.9 % [facility] RDW SD 43.6 35.7 - 48.1 fL [facility] NRBC abs 0.00 0.00 - 0.01 K/cumm [facility] Blood 08/28/2024 6:00 AM SWITCH MAKER 08/28/2024 6:20 AM SWITCH MAKER Anastasia Amaro MD LAB BLOOD ORDERABLES Final Result Performing Organization Address [facility] [place] [address] * Type and screen (08/28/2024 6:00 AM SWITCH MAKER) Pathologist [facility] ABO Rh O Negative Comment:Patient has previous antibody history Abiodun, indirect Negative [facility] Blood 08/28/2024 6:00 AM SWITCH MAKER 08/28/2024 6:54 AM SWITCH MAKER Narrative [facility] - 08/28/2024 7:53 AM SWITCH MAKER Has the patient had Daratumumab or Isatuximab in the past 6 months?->Unknown Anastasia Amaro MD LAB BLOOD BANK TEST ORDERA BLES Final Result Performing Organization Address [facility] [place] [address] * (ABNORMAL) Comprehensive metabolic panel (08/28/2024 6:00 AM SWITCH MAKER) [facility] Sodium 137 135 - 145 mmol/L Potassium, pl 3.6 3.3 - 4.9 mmol/L [facility] Chloride 105 97 - 110 mmol/L [facility] CO2 21(L) 22 - 32 mmol/L [facility] Anion gap 11 2 - 15 mmol/L [facility] BUN 8 6 - 25 mg/dL [facility] Creatinine 0.52(L) 0.60 - 1.10 mg/dL [facility] Glucose 74 70 - 199 mg/dL [facility] Comment: Interpretive Data Fasting glucose >/= 126 [...] Calcium 9.3 8.5 - 10.3 mg/dL [facility] Bilirubin, total 0.2 0.1 - 1.2 mg/dL [facility] Protein, pl 6.2(L) 6.5 - 8.5 g/dL [facility] Albumin 3.2(L) 3.5 - 5.0 g/dL [facility] Alk phos 96 40 - 130 Units/L [facility] ALT 25 7 - 45 Units/L [facility] AST 22 10 - 45 Units/L [facility] Blood 08/28/2024 6:00 AM SWITCH MAKER 08/28/2024 6:13 AM SWITCH MAKER Anastasia Amaro MD LAB BLOOD ORDERABLES Final Result [facility] [place] [address] * eGFR (08/25/2024 6:19 AM SWITCH MAKER) eGFR >90 >=60 mL/min/1. 73 m2 [...] last reviewed 2021. Blood 08/25/2024 6:19 AM SWITCH MAKER 08/25/2024 6:33 AM SWITCH MAKER Anastasia Amaro MD LAB BLOOD ORDERABLES Final Result Performing Organization Address City/[facility]/ZIP Co de Phone Number [facility] [place] [address] * (ABNORMAL) CBC without differential (08/25/2024 6:19 AM SWITCH MAKER) WBC 10.5(H) 3.8 - 9.9 K/cumm Hgb 11.4(L) 11.9 - 15.5 g/dL [facility] Hct 33.4(L) 35.6 - 45.5 % [facility] Plt 299 150 - 400 K/cumm [facility] MPV 10.6 9.1 - 12.3 fL [facility] RBC 3.90 3.90 - 5.20 M/cumm [facility] MCV 85.6 81.3 - 96.4 fL [facility] MCH 29.2 27.1 - 33.3 pg [facility] MCHC 34.1 32.3 - 35.7 g/dL [facility] RDW CV 13.4 11.1 - 14.9 % [facility] RDW SD 41.7 35.7 - 48.1 fL [facility] NRBC abs 0.00 0.00 - 0.01 K/cumm [facility] Blood 08/25/2024 6:19 AM SWITCH MAKER 08/25/2024 6:32 AM SWITCH MAKER Anastasia Amaro MD LAB BLOOD ORDERABLES Final Result Performing Organization Address City/[facility]/ZIP Co de Phone Number [facility] [place] [address] * Type and screen (08/25/2024 6:19 AM SWITCH MAKER) Abiodun, indirect Negative Comment:Patient has previous antibody history ABO Rh O Negative [facility] Blood 08/25/2024 6:19 AM SWITCH MAKER 08/25/2024 7:06 AM SWITCH MAKER Narrative [facility] - 08/25/2024 8:01 AM SWITCH MAKER Has the patient had Daratumumab or Isatuximab in the past 6 months?->Unknown us Anastasia Amaro MD LAB BLOOD BANK TEST ORDERA BLES Final Result [facility] [place] [address] * (ABNORMAL) Comprehensive metabolic panel (08/25/2024 6:19 AM SWITCH MAKER) Pathologist [facility] Sodium 139 135 - 145 mmol/L Potassium, pl 3.5 3.3 - 4.9 mmol/L [facility] Chloride 105 97 - 110 mmol/L [facility] CO2 22 22 - 32 mmol/L [facility] Anion gap 12 2 - 15 mmol/L [facility] BUN 6 6 - 25 mg/dL [facility] Creatinine 0.53(L) 0.60 - 1.10 mg/dL [facility] Glucose 70 70 - 199 mg/dL [facility] Comment: Interpretive Data Fasting glucose >/= 126 [...] 2022. Calcium 9.2 8.5 - 10.3 mg/dL [facility] Bilirubin, total 0.2 0.1 - 1.2 mg/dL [facility] Protein, pl 6.4(L) 6.5 - 8.5 g/dL [facility] Albumin 3.2(L) 3.5 - 5.0 g/dL [facility] Alk phos 92 40 - 130 Units/L [facility] ALT 22 7 - 45 Units/L [facility] AST 22 10 - 45 Units/L [facility] Blood 08/25/2024 6:19 AM SWITCH MAKER 08/25/2024 6:33 AM SWITCH MAKER us Anastasia Amaro MD LAB BLOOD ORDERABLES Final Result [facility] [place] [address] * US Ob Follow Up (08/24/2024 9:37 AM SWITCH MAKER) Fetus# Fetus1 VIEWPOINT Estimated Weight 1,348 g&grams VIEWPOINT Placenta Details anterior VIEWPOINT Presentation Vertex; Maternal right- low VIEWPOINT Fetus# Fetus2 VIEWPOINT Estimated Weight 1,784 g&grams VIEWPOINT Placenta Details anterior VIEWPOINT Presentation Vertex; Maternal left- high (presenting) VIEWPOINT Anatomical Region Laterality Modality Abdomen N/A Ultrasound 08/24/2024 9:37 AM SWITCH MAKER Impressions 08/24/2024 2:06 PM SWITCH MAKER 1. Presumed Mo/Di twin IUP at [...] Edite d * eGFR (08/22/2024 6:02 AM SWITCH MAKER) eGFR >90 >=60 mL/min/1. 73 m2 [...] last reviewed 2021. Blood 08/22/2024 6:02 AM SWITCH MAKER 08/22/2024 6:18 AM SWITCH MAKER us Anastasia Amaro MD LAB BLOOD ORDERABLES Final Result Performing Organization Address City/[facility]/ZIP Co de Phone Number [facility] [place] [address] * (ABNORMAL) CBC without differential (08/22/2024 6:02 AM SWITCH MAKER) Pathologist [facility] WBC 12.2(H) 3.8 - 9.9 K/cumm Hgb 11.8(L) 11.9 - 15.5 g/dL [facility] Hct 34.4(L) 35.6 - 45.5 % [facility] Plt 277 150 - 400 K/cumm [facility] MPV 10.4 9.1 - 12.3 fL [facility] RBC 4.02 3.90 - 5.20 M/cumm [facility] MCV 85.6 81.3 - 96.4 fL [facility] MCH 29.4 27.1 - 33.3 pg [facility] MCHC 34.3 32.3 - 35.7 g/dL [facility] RDW CV 13.6 11.1 - 14.9 % [facility] RDW SD 42.4 35.7 - 48.1 fL [facility] NRBC abs 0.00 0.00 - 0.01 K/cumm [facility] Blood 08/22/2024 6:02 AM SWITCH MAKER 08/22/2024 6:18 AM SWITCH MAKER us Anastasia Amaro MD LAB BLOOD ORDERABLES Final Result Performing Organization Address City/[facility]/ZIP Co de Phone Number [facility] [place] [address] * Type and screen (08/22/2024 6:02 AM SWITCH MAKER) Pathologist [facility] Abiodun, indirect Negative Comment:Patient has previous antibody history ABO Rh O Negative [facility] Blood 08/22/2024 6:02 AM SWITCH MAKER 08/22/2024 6:24 AM SWITCH MAKER Narrative [facility] - 08/22/2024 7:25 AM SWITCH MAKER Has the patient had Daratumumab or Isatuximab in the past 6 months?->Unknown Anastasia Amaro MD LAB BLOOD BANK TEST ORDERA BLES Final Result [facility] [place] [address] * (ABNORMAL) Comprehensive metabolic panel (08/22/2024 6:02 AM SWITCH MAKER) Sodium 138 135 - 145 mmol/L Potassium, pl 3.7 3.3 - 4.9 mmol/L [facility] Chloride 104 97 - 110 mmol/L [facility] CO2 23 22 - 32 mmol/L [facility] Anion gap 11 2 - 15 mmol/L [facility] BUN 7 6 - 25 mg/dL [facility] Creatinine 0.53(L) 0.60 - 1.10 mg/dL [facility] Glucose 72 70 - 199 mg/dL [facility] Comment: Interpretive Data Fasting glucose >/= 126 [...] 2022. Calcium 9.3 8.5 - 10.3 mg/dL [facility] Bilirubin, total 0.2 0.1 - 1.2 mg/dL [facility] Protein, pl 6.6 6.5 - 8.5 g/dL [facility] Albumin 3.2(L) 3.5 - 5.0 g/dL [facility] Alk phos 90 40 - 130 Units/L [facility] ALT 19 7 - 45 Units/L [facility] AST 18 10 - 45 Units/L [facility] Blood 08/22/2024 6:02 AM SWITCH MAKER 08/22/2024 6:18 AM SWITCH MAKER us Anastasia Amaro MD LAB BLOOD ORDERABLES Final Result [facility] [place] [address] * eGFR (08/19/2024 6:25 AM SWITCH MAKER) eGFR >90 >=60 mL/min/1. 73 m2 [...] last reviewed 2021. Blood 08/19/2024 6:25 AM SWITCH MAKER 08/19/2024 7:23 AM SWITCH MAKER us Anastasia Amaro MD LAB BLOOD ORDERABLES Final Result [facility] [place] [address] * (ABNORMAL) CBC without differential (08/19/2024 6:25 AM SWITCH MAKER) WBC 11.2(H) 3.8 - 9.9 K/cumm Hgb 11.3(L) 11.9 - 15.5 g/dL [facility] Hct 33.9(L) 35.6 - 45.5 % [facility] Plt 249 150 - 400 K/cumm [facility] MPV 10.6 9.1 - 12.3 fL [facility] RBC 3.89(L) 3.90 - 5.20 M/cumm [facility] MCV 87.1 81.3 - 96.4 fL [facility] MCH 29.0 27.1 - 33.3 pg [facility] MCHC 33.3 32.3 - 35.7 g/dL [facility] RDW CV 13.4 11.1 - 14.9 % [facility] RDW SD 42.5 35.7 - 48.1 fL [facility] NRBC abs 0.00 0.00 - 0.01 K/cumm [facility] Blood 08/19/2024 6:25 AM SWITCH MAKER 08/19/2024 7:23 AM SWITCH MAKER Anastasia Amaro MD LAB BLOOD ORDERABLES Final Result Performing Organization Address City/[facility] Co de Phone Number [facility] [place] [address] * Type and screen (08/19/2024 6:25 AM SWITCH MAKER) [facility] Abiodun, indirect Negative ABO Rh O Negative [facility] Comment:Patient has previous antibody history Blood 08/19/2024 6:25 AM SWITCH MAKER 08/19/2024 7:31 AM SWITCH MAKER Narrative [facility] - 08/19/2024 8:22 AM SWITCH MAKER Has the patient had Daratumumab or Isatuximab in the past 6 months?->Unknown Anastasia Amaro MD LAB BLOOD BANK TEST ORDERA BLES Final Result Performing Organization Address City/[facility]/ZIP Co de Phone Number [facility] [place] [address] * (ABNORMAL) Comprehensive metabolic panel (08/19/2024 6:25 AM SWITCH MAKER) Sodium 138 135 - 145 mmol/L Potassium, pl 3.7 3.3 - 4.9 mmol/L [facility] Chloride 105 97 - 110 mmol/L [facility] CO2 23 22 - 32 mmol/L [facility] Anion gap 10 2 - 15 mmol/L [facility] BUN 7 6 - 25 mg/dL [facility] Creatinine 0.54(L) 0.60 - 1.10 mg/dL [facility] Glucose 68(L) 70 - 199 mg/dL [facility] Comment: Interpretive Data Fasting glucose >/= 126 [...] 2022. Calcium 9.3 8.5 - 10.3 mg/dL [facility] Bilirubin, total 0.2 0.1 - 1.2 mg/dL [facility] Protein, pl 6.3(L) 6.5 - 8.5 g/dL [facility] Albumin 3.0(L) 3.5 - 5.0 g/dL [facility] Alk phos 88 40 - 130 Units/L [facility] ALT 13 7 - 45 Units/L [facility] AST 18 10 - 45 Units/L [facility] Blood 08/19/2024 6:25 AM SWITCH MAKER 08/19/2024 7:23 AM SWITCH MAKER us Anastasia Amaro MD LAB BLOOD ORDERABLES Final Result [facility] [place] [address] * US Ob Limited (08/16/2024 8:35 AM SWITCH MAKER) Fetus# Fetus1 VIEWPOINT Placenta Details anterior VIEWPOINT Presentation Transverse, maternal right-low VIEWPOINT Fetus# Fetus2 VIEWPOINT Placenta Details anterior VIEWPOINT Presentation Vertex; Maternal left- high VIEWPOINT Anatomical Region Laterality Modality Abdomen N/A Ultrasound 08/16/2024 8:36 AM SWITCH MAKER Impressions 08/16/2024 2:23 PM SWITCH MAKER Diamniotic (presumed MCDA) TIUP at 29w1d who is admitted for preE with severe features who presents for TTTS screen.Chorionicity was not fully assessed but was previously determined to be monochorionic by the [facility] practice. Anatomic surveys were also [...] previously determined to be monochorionic by the [facility] MFMpractice. Anatomic surveys were also completed [...] Result * Antibody identification (08/16/2024 7:34 AM SWITCH MAKER) Antibody ID 1 Passive Anti-D Blood 08/16/2024 7:34 AM SWITCH MAKER 08/16/2024 7:34 AM SWITCH MAKER us Anastasia Amaro MD LAB BLOOD BANK TEST ORDERA BLES Final Result [facility] [place] [place] [address] * eGFR (08/16/2024 6:15 AM SWITCH MAKER) eGFR >90 >=60 mL/min/1. 73 m2 [...] last reviewed 2021. Blood 08/16/2024 6:15 AM SWITCH MAKER 08/16/2024 6:29 AM SWITCH MAKER us Anastasia Amaro MD LAB BLOOD ORDERABLES Final Result Performing Organization Address City/[facility]/ZIP Co de Phone Number [facility] [place] [address] * Thyroid Function [place] (08/16/2024 6:15 AM SWITCH MAKER) [facility] TSH 3.83 0.30 - 4.20 mcIUnit/mL Blood 08/16/2024 6:15 AM SWITCH MAKER 08/16/2024 6:29 AM SWITCH MAKER Anastasia Amaro MD LAB BLOOD ORDERABLES Final Result Performing Organization Address City/[facility]/ZIP Co de Phone Number [facility] [place] [address] * (ABNORMAL) CBC without differential (08/16/2024 6:15 AM SWITCH MAKER) [facility] WBC 10.9(H) 3.8 - 9.9 K/cumm Hgb 11.6(L) 11.9 - 15.5 g/dL [facility] Hct 34.0(L) 35.6 - 45.5 % [facility] Plt 257 150 - 400 K/cumm [facility] MPV 10.4 9.1 - 12.3 fL [facility] RBC 3.95 3.90 - 5.20 M/cumm [facility] MCV 86.1 81.3 - 96.4 fL [facility] MCH 29.4 27.1 - 33.3 pg [facility] MCHC 34.1 32.3 - 35.7 g/dL [facility] RDW CV 13.3 11.1 - 14.9 % [facility] RDW SD 41.5 35.7 - 48.1 fL [facility] NRBC abs 0.00 0.00 - 0.01 K/cumm [facility] Blood 08/16/2024 6:15 AM SWITCH MAKER 08/16/2024 6:30 AM SWITCH MAKER Anastasia Amaro MD LAB BLOOD ORDERABLES Final Result Performing Organization Address City/[facility]/ZIP Co de Phone Number [facility] [place] [address] * (ABNORMAL) Type and screen (08/16/2024 6:15 AM SWITCH MAKER) Abiodun, indirect Positive(A) ABO Rh O Negative [facility] Blood 08/16/2024 6:15 AM SWITCH MAKER 08/16/2024 6:25 AM SWITCH MAKER Narrative [facility] - 08/16/2024 7:34 AM SWITCH MAKER Has the patient had Daratumumab or Isatuximab in the past 6 months?->Unknown Anastasia Amaro MD LAB BLOOD BANK TEST ORDERA BLES Final Result [facility] [place] [address] * (ABNORMAL) Comprehensive metabolic panel (08/16/2024 6:15 AM SWITCH MAKER) Sodium 139 135 - 145 mmol/L Potassium, pl 3.4 3.3 - 4.9 mmol/L [facility] Chloride 105 97 - 110 mmol/L [facility] CO2 23 22 - 32 mmol/L [facility] Anion gap 11 2 - 15 mmol/L [facility] BUN 8 6 - 25 mg/dL [facility] Creatinine 0.51(L) 0.60 - 1.10 mg/dL [facility] Glucose 72 70 - 199 mg/dL [facility] Comment: Interpretive Data Fasting glucose >/= 126 [...] 2022. Calcium 9.2 8.5 - 10.3 mg/dL [facility] Bilirubin, total 0.2 0.1 - 1.2 mg/dL [facility] Protein, pl 6.4(L) 6.5 - 8.5 g/dL [facility] Albumin 3.2(L) 3.5 - 5.0 g/dL [facility] Alk phos 86 40 - 130 Units/L [facility] ALT 16 7 - 45 Units/L [facility] AST 16 10 - 45 Units/L [facility] Blood 08/16/2024 6:15 AM SWITCH MAKER 08/16/2024 6:29 AM SWITCH MAKER us Anastasia Amaro MD LAB BLOOD ORDERABLES Final Result Performing Organization Address [facility] Co de Phone Number [facility] [place] [address] * POCT glucose (08/14/2024 3:06 PM SWITCH MAKER) Pathologist [facility] Glucose, POC 103 70 - 199 mg/dL Comment:Post Meal Glucose comment 1 Post Meal [facility] Blood 08/14/2024 3:06 PM SWITCH MAKER 08/14/2024 3:06 PM SWITCH MAKER Anastasia Amaro MD LAB POCT ORDERABLES - JELENA CE Final Result Performing Organization Address [facility] de Phone Number [facility] [place] [address] * ECG 12 lead (08/13/2024 9:02 AM SWITCH MAKER) Ventricular Rate EKG/Min 122 BPM [facility] Atrial Rate 122 BPM [facility] CT-Interval (MSEC) 132 ms [facility] QRS-Interval (MSEC) 80 ms [facility] QT-Interval (MSEC) 324 ms [facility] QTc 461 ms [facility] P [place]inetop 49 degrees [facility] R [place] 18 degrees [facility] T P[place] 29 degrees [facility] Diagnosis Sinus tachycardia Otherwise normal ECG When compared with ECG of 04-AUG-2024 17:45, No significant change was found Confirmed by SAMANTA KAPLAN M.D ([id number]) on 08/15/2024 12:21:02 PM [facility] 08/13/2024 9:02 AM SWITCH MAKER 08/15/2024 12:21 PM SWITCH MAKER us Anastasia Amaro MD ECG ORDERABLES Final Resu lt [facility] * Antibody identification (08/13/2024 7:42 AM SWITCH MAKER) Antibody ID 1 Passive Anti-D Blood 08/13/2024 7:42 AM SWITCH MAKER 08/13/2024 7:42 AM SWITCH MAKER us nAastasia Amaro MD LAB BLOOD BANK TEST ORDERA BLES Final Result [facility] [place] [address] * eGFR (08/13/2024 5:44 AM SWITCH MAKER) eGFR >90 >=60 mL/min/1. 73 m2 [...] last reviewed 2021. Blood 08/13/2024 5:44 AM SWITCH MAKER 08/13/2024 6:05 AM SWITCH MAKER Anastasai Amaro MD LAB BLOOD ORDERABLES Final Result Performing Organization Address [facility] [place] [address] * HIV 1/2 Antibody plus p24 Antigen Blood (08/13/2024 5:44 AM SWITCH MAKER) [facility] HIV 1/2 ab + p24 ag Nonreactive Nonreactive Comment:Nonreactive for HIV- 1 antigen and HIV-1/HIV-2 antibodies. No laboratory evidence of HIV infection. If acute HIV infection is suspected, consider testing for HIV-1 RNA. Current interpretive data was last revised on 22. Blood 08/13/2024 5:44 AM SWITCH MAKER 08/13/2024 6:05 AM SWITCH MAKER Anastasia Amaro MD LAB MICROBIOLOGY - GENERAL ORDERABLES Final Result Performing Organization Address [facility] [place] [address] * RPR Blood (08/13/2024 5:44 AM SWITCH MAKER) [facility] RPR Nonreactive Nonreactive Blood 08/13/2024 5:44 AM SWITCH MAKER 08/13/2024 6:05 AM SWITCH MAKER Anastasia Amaro MD LAB MICROBIOLOGY - GENERAL ORDERABLES Final Result Performing Organization Address [facility] [place] [address] * (ABNORMAL) CBC without differential (08/13/2024 5:44 AM SWITCH MAKER) [facility] WBC 12.4(H) 3.8 - 9.9 K/cumm Hgb 11.8(L) 11.9 - 15.5 g/dL [facility] Hct 34.4(L) 35.6 - 45.5 % [facility] Plt 295 150 - 400 K/cumm [facility] MPV 10.3 9.1 - 12.3 fL [facility] RBC 3.93 3.90 - 5.20 M/cumm [facility] MCV 87.5 81.3 - 96.4 fL [facility] MCH 30.0 27.1 - 33.3 pg [facility] MCHC 34.3 32.3 - 35.7 g/dL [facility] RDW CV 13.6 11.1 - 14.9 % [facility] RDW SD 43.5 35.7 - 48.1 fL [facility] NRBC abs 0.00 0.00 - 0.01 K/cumm [facility] Blood 08/13/2024 5:44 AM SWITCH MAKER 08/13/2024 6:05 AM SWITCH MAKER Anastasia Amaro MD LAB BLOOD ORDERABLES Final Result Performing Organization Address City/[facility]/ZIP Co de Phone Number [facility] [place] [address] * (ABNORMAL) Type and screen (08/13/2024 5:44 AM SWITCH MAKER) Pathologist [facility] ABO Rh O Negative Abiodun, indirect Positive(A) [facility] Blood 08/13/2024 5:44 AM SWITCH MAKER 08/13/2024 6:19 AM SWITCH MAKER Narrative [facility] - 08/13/2024 7:42 AM SWITCH MAKER Has the patient had Daratumumab or Isatuximab in the past 6 months?->Unknown Anastasia Amaro MD LAB BLOOD BANK TEST ORDERA BLES Final Result [facility] [place] [address] * (ABNORMAL) Comprehensive metabolic panel (08/13/2024 5:44 AM SWITCH MAKER) Sodium 137 135 - 145 mmol/L Potassium, pl 3.7 3.3 - 4.9 mmol/L [facility] Chloride 104 97 - 110 mmol/L [facility] CO2 22 22 - 32 mmol/L [facility] Anion gap 11 2 - 15 mmol/L [facility] BUN 8 6 - 25 mg/dL [facility] Creatinine 0.49(L) 0.60 - 1.10 mg/dL [facility] Glucose 74 70 - 199 mg/dL [facility] Comment: Interpretive Data Fasting glucose >/= 126 [...] 2022. Calcium 9.4 8.5 - 10.3 mg/dL [facility] Bilirubin, total 0.3 0.1 - 1.2 mg/dL [facility] Protein, pl 6.5 6.5 - 8.5 g/dL [facility] Albumin 3.3(L) 3.5 - 5.0 g/dL [facility] Alk phos 85 40 - 130 Units/L [facility] ALT 21 7 - 45 Units/L [facility] AST 19 10 - 45 Units/L [facility] Blood 08/13/2024 5:44 AM SWITCH MAKER 08/13/2024 6:05 AM SWITCH MAKER us Anastasia Amaro MD LAB BLOOD ORDERABLES Final Result [facility] [place] [address] * Hepatitis C antibody Blood (05/20/2024 2:47 [...] MICROBIOLOGY - GENERAL ORDERAB[place] [id number] [place] [address] from Last 3 Months or Most Recently Relevant to Health Maintenance [place] Advance Directives For more information, please contact: [phone] * Full Code (Latest Code Status on File) Date Activated Date Inactivated Comments 09/19/2024 4:34 PM 09/22/2024 3:32 PM * Full Code Date Activated Date Inactivated Comments 07/29/2024 3:05 AM 09/19/2024 4:34 PM Care Teams Strategic Partnership Representative Relationship Specialty Start Date End Date No, Physician PCP - General 02/25/24"
--- NOTE | 2024-11-13 20:27 | PC.NURSE ---
FAMILY MEMBERS AT THE BEDSIDE. OFFERED PATIENT BLANKET. SHE DOES NOT WANT ONE AT THIS TIME. CALL LIGHT IN REACH.
--- NOTE | 2024-11-13 20:28 | PC.NURSE ---
DR LOWE AT THE BEDSIDE
--- NOTE | 2024-11-13 20:28 | ED_ITS ---
HPI - General Adult General Chief complaint: Unspecified Stated complaint: High BP Time Seen by Provider: 11/13/24 20:13 History of Present Illness HPI narrative: Suki is a 29F with a PMH of hypertension, severe Pre E in her that ended several weeks ago that presented to the ED with elevated BP. She takes it regularly and found it to be quite high this afternoon but had no symptoms. No CP, dyspnea, confusion or change in UOP. She took her home nifedipine and propranolol. She is not breast feeding. Related Data Home Medications ?Medication ?Instructions ?Recorded ?Confirmed ?Last Taken ?Type escitalopram oxalate 20 mg tablet 20 mg PO .QD 09/29/24 11/13/24 Unknown History famotidine 40 mg tablet 40 mg PO QHS 09/29/24 11/13/24 Unknown History nifedipine 60 mg tablet,extended 60 mg PO .Q24 09/29/24 11/13/24 09/28/24 History release propranolol 160 mg capsule,24 160 mg PO Q24H 11/13/24 11/13/24 Unknown History hr,extended release Allergies Allergy/AdvReac Type Severity Reaction Status Date / Time No Known Allergies Allergy Verified 11/13/24 20:33 Review of Systems 2 Review of Systems: All systems reviewed & are unremarkable except as noted in HPI and below PMFSH Past Medical History Medical History (Updated 11/13/24 @ 21:48 by Stevie Jefferson DO) Acid reflux Anxiety Irritable bowel Surgical History Surgical History History of cholecystectomy Family History Family History Mother Family history of mental disorder Sibling Family history of mental disorder Father Hypertension Grandparent Diabetes mellitus Social History Social History Smoking status: Never smoker Alcohol intake: current Gender identity (if verbalized by the patient): Female Exam 2 Const: General: cooperative, healthy appearing, comfortable, no acute distress, well developed, alert, awake and Physically active O rientation/consciousness: oriented to person, oriented to place and oriented to time HENMT: Head: normal to inspection, normocephalic and atraumatic Ears: h earing grossly normal bilaterally and external ears normal Face/Nose/Sinus: N ormal external nose present Eyes: General: appearance normal, both eyes and all related structures P eriorbital: periorbital findings normal Sclera: sclerae normal Pupils: E qual, round and reactive pupils present Neck: Neck: normal visual inspection Chest: Chest palpation & inspection: normal inspection of the chest Resp: Effort & Inspection: normal respiratory effort, able to speak in complete sentences and no respiratory distress Auscultation: clear to auscultation bilaterally Cardio: Jugular venous distension: no JVD Rate: regular rate Rhythm: r egular rhythm GI: Inspection: normal to inspection GI Palp: Yes Soft to palpation A uscultation: normal bowel sounds Skin: General skin exam: normal color and no rashes or lesions noted Neuro: General: oriented to person, oriented to place and oriented to time Cranial nerves: Yes Equal, round and reactive pupils present Extrem: General: normal to inspection Course Course Emergency Course: EKG showed NSR with a rate of 78, normal axis and no ST elevation/depression Labs were largely unremarkable. BP came down with metoprolol We discussed additional PO meds. She is not breast feeding and no plans of getting soon. Vital Signs Vital signs: Vital Signs Temperature 98.2 F 11/13/24 20:23 Pulse Rate 86 11/13/24 20:23 Respiratory Rate 16 11/13/24 20:23 Blood Pressure 171/104 H 11/13/24 20:23 Pulse Oximetry 98 11/13/24 20:23 Oxygen Delivery Room Air 11/13/24 20:23 Temperature 98.2 F 11/13/24 20:23 Pulse Rate 71 11/13/24 21:31 Respiratory Rate 18 11/13/24 21:31 Blood Pressure 145/92 H 11/13/24 21:31 Pulse Oximetry 100 11/13/24 21:31 Oxygen Delivery Room Air 11/13/24 21:31 Medical Decision Making Vital Signs Vital Signs: Vital Signs Temperature 98.2 F 11/13/24 20:23 Pulse Rate 86 11/13/24 20:23 Respiratory Rate 16 11/13/24 20:23 Blood Pressure 171/104 H 11/13/24 20:23 Pulse Oximetry 98 11/13/24 20:23 Oxygen Delivery Room Air 11/13/24 20:23 Temperature 98.2 F 11/13/24 20:23 Pulse Rate 71 11/13/24 21:31 Respiratory Rate 18 11/13/24 21:31 Blood Pressure 145/92 H 11/13/24 21:31 Pulse Oximetry 100 11/13/24 21:31 Oxygen Delivery Room Air 11/13/24 21:31 Lab Data 11/13/24 20:32 11/13/24 20:32 Labs: Lab Results 11/13/24 Range/Units 20:32 WBC 6.2 (4.8-10.8) K/mm3 RBC 4.78 (4.20-5.40) M/mm3 Hgb 13.3 (12.0-15.0) g/dL Hct 40.9 (35.0-49.0) % MCV 85.6 (78.0-102.0) fL MCH 27.8 (27.0-31.0) pg MCHC 32.5 (32-36) g/dL RDW 12.4 (11.6-14.4) % Plt Count 359 (150-420) K/mm3 MPV 9.7 (9.2-11.8) fl Immature Gran % (Auto) 0.3 H (0.0-0.0) % Neut % (Auto) 47.4 L (50.0-70.0) % Lymph % (Auto) 40.8 (18.0-42.0) % [place]ion % (Auto) 10.8 (2.0-11.0) % Eos % (Auto) 0.5 L (1.0-6.0) % Baso % (Auto) 0.2 (0.0-1.0) % Lymph # (Auto) 2.52 (1.10-4.50) K/mm3 [place]ion # (Auto) 0.67 (0.10-0.90) K/mm3 Eos # (Auto) 0.03 (0.02-0.50) K/mm3 Baso # (Auto) 0.01 (0.00-0.10) K/mm3 Abs Immat Gran (auto) 0.02 H (0.00-0.00) K/mm3 Absolute Neuts (auto) 2.93 (1.70-7.20) K/mm3 Absolute Nucleated RBC 0.00 (0.00-0.00) K/mm3 Nucleated RBC % 0.0 (0-0.0) % Sodium 142 (136-145) mmol/L Potassium 3.3 L (3.5-5.1) mmol/L Chloride 106 (98-108) mmol/L Carbon Dioxide 26 (21-32) mmol/L Anion Gap 10 (4-12) mmol/L BUN 9 (7-18) mg/dL Creatinine 0.83 (0.55-1.02) mg/dL Estim Creat Clear Calc 112 ml/min Estimated GFR > 60 (59 - ) Glucose 87 (70-99) mg/dL Calculated Osmolality 291 (285-295) mOsm/kg Calcium 9.1 (8.5-10.1) mg/dL Magnesium 2.0 (1.8-2.4) mg/dL Total Bilirubin 0.7 (0.00-1.00) mg/dL AST 12 L (15-37) U/L ALT 18 (14-59) U/L Alkaline Phosphatase 59 (46-116) U/L Troponin I < 4.0 (0.00-60.4) ng/L Total Protein 7.4 (6.4-8.2) g/dL Albumin 4.1 (3.4-5.0) g/dL Discharge Plan Discharge Clinical Impression: Hypertension Patient Disposition: Home, Self-Care Condition: Stable Instructions: Antibiotic Form Patient Language: Bengali Prescriptions: New lisinopril 10 mg tablet 10 mg PO DAILY Qty: 30 0RF No Action famotidine 40 mg tablet 40 mg PO QHS escitalopram oxalate 20 mg tablet 20 mg PO .QD nifedipine 60 mg tablet extended release 60 mg PO .Q24 propranolol 160 mg capsule,extended release 24 hr 160 mg PO Q24H Follow-up/Referrals: Bertrand Stephen MD [Primary Care Provider] -
--- NOTE | 2024-11-13 20:32 | ECG_ITS ---
Test Date: 2024-11-13 20:40:07 Measurements Intervals [place] Rate: 78 P: 63 WV: 147 QRS: 10 QRSD: 93 T: 40 QT: 375 QTc: 428 Interpretive Statements SINUS RHYTHM POSSIBLE LEFT ATRIAL ENLARGEMENT BORDERLINE T WAVE ABNORMALITY- ANTERIOR LEADS BASELINE ARTIFACT- II, III BORDERLINE ECG Compared to ECG 11/09/2024 09:59:02 Sinus bradycardia no longer present Left ventricular hypertrophy no longer present Myocardial infarct finding no longer present Electronically Signed On 11-14-2024 06:29:33 [employer] by Chucho Holbrook D.O.
--- NOTE | 2024-11-13 20:39 | PC.NURSE ---
NOTIFIED LAB OF BLOOD WORK ORDERS
--- NOTE | 2024-11-13 20:39 | PC.NURSE ---
HUGH VIEYRA, AT THE BEDSIDE DOING EKG
--- OUTSIDE RECORDS SUMMARY | 2024-11-13 20:45 | XMS_ITS | Referral Summary ---
Author Organization [facility] Address [address] [place] [phone] Care Team Providers Care Manager Solution Name Role Phone No, Physician Primary Care Provider [phone] Encounters Date Type Department Care Team Description 11/04/2024 Telephone Psychiatry James Rojas MD Reminder of Appointment 11/03/2024 4:37 PM MANAGER MAC - 11/03/2024 11:59 PM MANAGER MAC Hospital Encounter [address] [address] Encounter for routine follow-up Discharge Disposition: Discharge to home or self care 11/03/2024 1:40 PM MANAGER MAC Office Visit [facility] [address] [place] [address] Floor [address] [place] [phone] Encounter for routine follow-up (Primary Dx) 10/28/2024 [place] [address] Nancy Noel, [place] [facility] [employer] [facility] Brief Therapeutic Intervention 10/20/2024 Orders Only [facility] [address] [place] [address] 7th Floor [address] [place] [phone] Gracy Hicks RN Postpartum care following delivery (Primary Dx); Preeclampsia, unspecified trimester 10/20/2024 1:00 PM MANAGER MAC Office Visit [facility] [address] [place] [address] 7th Floor [address] [place] [phone] care following delivery (Primary Dx) 10/18/2024 1:00 PM MANAGER MAC Telemedicine [facility] [place] [address] Nancy Noel, LEO Generalized anxiety disorder (Primary Dx) 10/16/2024 9:30 AM MANAGER MAC - 10/16/2024 2:10 PM MANAGER MAC Emergency [facility] Emergency Department [address] [place] [address] Satnam Nair MD Secondary hypertension (Primary Dx) Discharge Disposition: Discharge to home or self care 10/07/2024 Telephone [facility] [place] [address] Nancy Noel, LEO [facility] Initial Contact 09/30/[address] [address] 09/25/[address] [address] 07/29/2024 2:42 AM CDT - 09/22/2024 11:26 AM MANAGER MAC Hospital Encounter [address] [address] Anastasia Amaro MD Bligard, MD Sumanth Fitzgerald Julia Ellen, MD Goodman, Sara Olsen MD Preeclampsia, unspecified trimester (Primary Dx); Twin , unable to determine number of placenta and number of amniotic sacs, antepartum, unspecified trimester [O30.099]; 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 Discharge Disposition: Discharge to home or self care 09/19/2024 1:57 PM MANAGER MAC Anesthesia Event [address] [address] Sidra Ann MD Bailey, Cody Allen, MD 09/19/2024 1:30 PM MANAGER MAC - 09/19/2024 4:05 PM MANAGER MAC Surgery [address] [address] Josefina Peter MD SECTION 09/15/2024 9:00 AM MANAGER MAC Ancillary Procedure [facility] [address] [address] 09/08/2024 10:00 AM MANAGER MAC Ancillary Procedure [facility] [address] [address] 08/24/2024 12:30 PM MANAGER MAC Ancillary Procedure [address] [address] 08/16/2024 8:15 AM MANAGER MAC Ancillary Procedure [address] [address] from Last 3 Months Allergies No known [...] Blood pressures well controlled on N120XL and W114OEY. CBC/CMP WNL, UPC 0.1. Enrolled in remote [...] # Disposition: Follow up task sent to [facility] [employer] scheduling pool for appointments in 2 and 6 weeks. They are enrolled in remote blood pressure monitoring for their BP check. Desires discharge home today. Service Coverage These phones are service phones and carried 27/04 in house: R1 (first call) [phone] R1 alt (second call) [phone] R4 (Chief) [phone] 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 08/29/2024 [...] Blood pressures well controlled on N120XL and H390QGJ. Magnesium for seizure prophylaxis. #sinus tachycardia, intermittent: [...] found out that that would be in [place] he used an expletive to express that [...] Tobacco: Never Tobacco Cessation:Counseling Given: Not Answered [facility] Utilities Answer Date Recorded In the past 12 months has [employer], oil, or water [employer] threatened to shut off services in your [...] 07/29/2024 How often do you attend [facility] or voodoo services? Never 07/29/2024 Do you belong to any clubs o r organizations such as gnosticist groups, unions, fraternal or athletic groups, or [...] [facility] Occupat ional [facility] - Occupational Stress Questionnaire Answer Date [...] things needed for daily living? No 07/29/2024 [place] Depression Scale Answer Date Recorded [place] Depression Scale Total 21 10/20/2024 The thought [...] any time in the past 12 [facility], were you homeless or living in [...] file Legal Sex Female 2:19 AM MANAGER MAC Gender Identity Not on file Sexual Orientation Not on file Last Filed Vital Signs Vital Sign Reading Time Taken Comments Blood Pressure 120/81 11/03/2024 1:53 PM MANAGER MAC Pulse 116 11/03/2024 1:53 PM MANAGER MAC Temperature 35.9 C (96.7 F) 10/16/2024 9:28 AM MANAGER MAC Respiratory Rate 18 10/16/2024 11:0 0 AM MANAGER MAC Oxygen Saturation 97% 11/03/2024 1:53 PM MANAGER MAC Inhaled Oxygen Concentration - - Weight 111.5 kg (245 lb 12.8 oz) 11/03/2024 1:53 PM MANAGER MAC Height 167.6 cm (5' 6 ) 10/16/2024 9:28 AM MANAGER MAC Body Mass Index 39.67 10/16/2024 9:28 AM MANAGER MAC Plan of Treatment Not on file Procedures Procedure Name Priority Date/Time Associated Diagnosis Comments PAP WITH REFLEX TO HIGH RISK HPV Routine 11/03/2024 4:37 PM MANAGER MAC Encounter for routine follow-up THINPREP PROCESSING (MOLECULAR COMPONENT) Routine 11/03/2024 4:37 PM MANAGER MAC Encounter for routine follow-up URINALYSIS, MICROSCOPIC ONLY STAT 10/16/2024 11:21 AM MANAGER MAC URINE CULTURE STAT 10/16/2024 11:21 AM MANAGER MAC URINALYSIS AND REFLEX TO MICROSCOPIC AND CULTURE STAT 10/16/2024 11:21 AM MANAGER MAC ECG 12-LEAD STAT 10/16/2024 10:36 AM MANAGER MAC EGFR Add On 10/16/2024 9:47 AM MANAGER MAC DIFFERENTIAL AUTO Add On 10/16/2024 9:4 7 AM MANAGER MAC COMPREHENSIVE METABOLIC PANEL Add-On 10/16/2024 9:47 AM MANAGER MAC CBC WITH AUTO DIFFERENTIAL Add-On 10/16/2024 9:47 AM MANAGER MAC BLEED SCREEN Timed 09/20/2024 4: 48 AM MANAGER MAC ABO/RH Timed 09/20/2024 4:48 AM MANAGER MAC CBC WITHOUT DIFFERENTIAL Routine 09/20/2024 4:48 AM MANAGER MAC RH IMMUNE GLOBULIN EVAL Timed 09/20/2024 4:48 AM MANAGER MAC SURGICAL PATHOLOGY Routine 09/19/2024 4: 06 PM MANAGER MAC ANESTHESIA EPIDURAL BLOCK Routine 09/19/2024 2:45 PM MANAGER MAC SECTION 09/19/2024 1:56 PM MANAGER MAC TIUP Case Notes PreE w/ SF and Multiple gestation EGFR Timed 09/18/2024 6:21 AM MANAGER MAC COMPREHENSIVE METABOLIC PANEL Timed 09/18/2024 6:21 AM MANAGER MAC CBC WITHOUT DIFFERENTIAL Timed 09/18/2024 6:21 AM MANAGER MAC TYPE AND SCREEN Timed 09/18/2024 6:21 AM MANAGER MAC NONSTRESS TEST Routine 09/17/2024 2:58 PM MANAGER MAC Preeclampsia, unspecified trimester 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 US OB FOLLOW UP IP Routine 09/15/2024 1:08 PM MANAGER MAC EGFR Timed 09/15/2024 6:17 AM MANAGER MAC COMPREHENSIVE METABOLIC PANEL Timed 09/15/2024 6:17 AM MANAGER MAC CBC WITHOUT DIFFERENTIAL Timed 09/15/2024 6:17 AM MANAGER MAC TYPE AND SCREEN Timed 09/15/2024 6:17 AM MANAGER MAC NONSTRESS TEST Routine 09/13/2024 5:10 PM MANAGER MAC Preeclampsia, unspecified trimester 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 EGFR Timed 09/12/2024 6:35 AM MANAGER MAC COMPREHENSIVE METABOLIC PANEL Timed 09/12/2024 6:35 AM MANAGER MAC CBC WITHOUT DIFFERENTIAL Timed 09/12/2024 6:35 AM MANAGER MAC TYPE AND SCREEN Timed 09/12/2024 6:35 AM MANAGER MAC EGFR Timed 09/09/2024 6:24 AM MANAGER MAC COMPREHENSIVE METABOLIC PANEL Timed 09/09/2024 6:24 AM MANAGER MAC CBC WITHOUT DIFFERENTIAL Timed 09/09/2024 6:24 AM MANAGER MAC TYPE AND SCREEN Timed 09/09/2024 6:24 AM MANAGER MAC US OB LIMITED IP Routine 09/08/2024 10:29 AM MANAGER MAC NONSTRESS TEST Routine 09/06/2024 8:38 PM MANAGER MAC Preeclampsia, unspecified trimester 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 EGFR Timed 09/06/2024 4:31 AM MANAGER MAC COMPREHENSIVE METABOLIC PANEL Timed 09/06/2024 4:31 AM MANAGER MAC CBC WITHOUT DIFFERENTIAL Timed 09/06/2024 4:31 AM MANAGER MAC TYPE AND SCREEN Timed 09/06/2024 4:31 AM MANAGER MAC GROUP B STREPTOCOCCUS CULTURE Routine 09/03/2024 10:29 AM MANAGER MAC EGFR Timed 09/03/2024 5:26 AM MANAGER MAC COMPREHENSIVE METABOLIC PANEL Timed 09/03/2024 5:26 AM MANAGER MAC CBC WITHOUT DIFFERENTIAL Timed 09/03/2024 5:26 AM MANAGER MAC TYPE AND SCREEN Timed 09/03/2024 5:26 AM MANAGER MAC ECG 12-LEAD Routine 09/02/2024 4:33 PM MANAGER MAC EGFR Timed 08/31/2024 6:20 AM MANAGER MAC COMPREHENSIVE METABOLIC PANEL Timed 08/31/2024 6:20 AM MANAGER MAC CBC WITHOUT DIFFERENTIAL Timed 08/31/2024 6:20 AM MANAGER MAC TYPE AND SCREEN Timed 08/31/2024 6:20 AM MANAGER MAC NONSTRESS TEST Routine 08/29/2024 2:32 PM MANAGER MAC Preeclampsia, unspecified trimester 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 NONSTRESS TEST Routine 08/28/2024 7:47 PM MANAGER MAC Preeclampsia, unspecified trimester 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 EGFR Timed 08/28/2024 6:00 AM MANAGER MAC COMPREHENSIVE METABOLIC PANEL Timed 08/28/2024 6:00 AM MANAGER MAC CBC WITHOUT DIFFERENTIAL Timed 08/28/2024 6:00 AM MANAGER MAC TYPE AND SCREEN Timed 08/28/2024 6:00 AM MANAGER MAC EGFR Timed 08/25/2024 6:19 AM MANAGER MAC COMPREHENSIVE METABOLIC PANEL Timed 08/25/2024 6:19 AM MANAGER MAC CBC WITHOUT DIFFERENTIAL Timed 08/25/2024 6:19 AM MANAGER MAC TYPE AND SCREEN Timed 08/25/2024 6:19 AM MANAGER MAC US OB FOLLOW UP IP Routine 08/24/2024 9:37 AM MANAGER MAC EGFR Timed 08/22/2024 6:02 AM MANAGER MAC COMPREHENSIVE METABOLIC PANEL Timed 08/22/2024 6:02 AM MANAGER MAC CBC WITHOUT DIFFERENTIAL Timed 08/22/2024 6:02 AM MANAGER MAC TYPE AND SCREEN Timed 08/22/2024 6:02 AM MANAGER MAC EGFR Timed 08/19/2024 6:25 AM MANAGER MAC COMPREHENSIVE METABOLIC PANEL Timed 08/19/2024 6:25 AM MANAGER MAC CBC WITHOUT DIFFERENTIAL Timed 08/19/2024 6:25 AM MANAGER MAC TYPE AND SCREEN Timed 08/19/2024 6:25 AM MANAGER MAC US OB LIMITED IP Routine 08/16/2024 8:35 AM MANAGER MAC ANTIBODY IDENTIFICATION Routine 08/16/2024 7:34 AM MANAGER MAC EGFR Timed 08/16/2024 6:15 AM MANAGER MAC THYROID FUNCTION CASCADE Routine 08/16/2024 6:15 AM MANAGER MAC COMPREHENSIVE METABOLIC PANEL Timed 08/16/2024 6:15 AM MANAGER MAC CBC WITHOUT DIFFERENTIAL Timed 08/16/2024 6:15 AM MANAGER MAC TYPE AND SCREEN Timed 08/16/2024 6:15 AM MANAGER MAC POCT GLUCOSE DEVICE Routine 08/14/2024 3 :06 PM MANAGER MAC ECG 12-LEAD Routine 08/13/2024 9:02 AM MANAGER MAC ANTIBODY IDENTIFICATION Routine 08/13/2024 7:42 AM MANAGER MAC EGFR Timed 08/13/2024 5:44 AM MANAGER MAC COMPREHENSIVE METABOLIC PANEL Timed 08/13/2024 5:44 AM MANAGER MAC CBC WITHOUT DIFFERENTIAL Timed 08/13/2024 5:44 AM MANAGER MAC TYPE AND SCREEN Timed 08/13/2024 5:44 AM MANAGER MAC RPR Routine 08/13/2024 5:44 AM MANAGER MAC HIV 1/2 ANTIBODY PLUS P24 ANTIGEN Routine 08/13/2024 5:44 AM MANAGER MAC HEPATITIS C ANTIBODY Routine 05/20/2024 2:47 PM CDT Encounter for supervision of normal first in first trimester 11 weeks gestation of from Last 3 Months or Most Recently Relevant to Health Maintenance Results * ThinPrep processing (Molecular component) (11/03/2024 4:37 PM MANAGER MAC) ThinPrep processing (Molecular component) Specimen received for processing. [facility] Endocervical 11/03/2024 4:37 PM MANAGER MAC 11/07/2024 8:41 AM MANAGER MAC us Jada Ngo MOTOR EQUIPMENT SERGEANT LAB BODY FLUIDS AND STOOLS ORDERABLES Final Result BIA [facility] [place] [address] [facility] * Pap with reflex to High Risk HPV and Genotyping (Cytology Component) (11/03/2024 4:37 PM MANAGER MAC) Thin prep (Pap test) 11/03/2024 4:37 PM MANAGER MAC 11/03/2024 5:54 PM MANAGER MAC Narrative PATHOLOGY [facility] - 11/11/2024 3:38 PM MANAGER MAC EPIC results best viewed via link to PDF [facility] [place] [address] Note to Patients: This report may contain [...] Gender: Bhumi : 1995 (Age: 29) Address: [address] [place], [place] [id number] [facility] #: [id number] Service: SALES FORCE ADMINISTRATOR Location: Patient Type: [facility] SPECIMEN Taken: 11/03/2024 Received: 11/03/2024 Accessioned: 11/07/2024 [...] clinical information and biopsy results as indicated. [facility] Clinical Laboratory Improvement Amendments (CLIA) mandate that cytologic and histologic results be correlated for laboratory quality consultant & improvement standards. FOR ALL HIGH-GRADE CASES [...] determined by the Surgical Pathology Department at [facility] as part of an ongoing quality consultant program and in compliance with federally mandated [...] determined by the Surgical Pathology Department of [facility]. It has not been cleared or approved by the U. S. Food and Drug Administration. Jada Ngo NP LAB CYTOLOGY ORDERA BLES Final Result PATHOLOGY [facility] IOH 3rd Floor [place], [place] [phone] * (ABNORMAL) Urinalysis reflex to microscopic and culture Urine (10/16/2024 11:21 AM MANAGER MAC) Color, ur Yellow Yellow Clarity, ur Clear [...] tendency for uric acid stone formation. Source: [facility] Cube Route Current Interpretive Data was last revised on [...] [facility] ([facility]) Urine 10/16/2024 11:2 1 AM MANAGER MAC 10/16/2024 11:23 AM MANAGER MAC us Satnam Nair MD LAB MICROBIOLOGY - GENERAL O RDERABLES Final Result BIA [facility] ([place]) 1 [facility] Department [place] [address] * (ABNORMAL) Urinalysis, microscopic only (10/16/2024 11:21 AM MANAGER MAC) WBC, ur 11-20(A) 0 - 5 /HPF RBC, ur >50(A) 0 - 2 /HPF [facility] ([place]) Epithelial cells, squamous, ur 1-5 0 - 5 /HPF [facility] ([place]) Bacteria, ur Trace(A) X[facility] ([place]) Mucous, ur Present(A) [facility] A ([place]) Culture Reflex Comment Reflex to urine culture will be performed. BIA [facility] ([place]) Urine 10/16/2024 11:2 1 AM MANAGER MAC 10/16/2024 11:23 AM MANAGER MAC Satnam Nair MD LAB URINE ORDERABLES Final R esult Performing Organization Address City/[facility]/ZIP Co de Phone Number BIA [facility] ([place]) 1 [facility] [employer] [address] * Urine culture Urine (10/16/2024 11:21 AM MANAGER MAC) Report Final Report: Less than 100,000 colonies/mL (clinically insignificant growth based on current clinical standards) Comment:Testing performed by : [facility], [address] [facility] [place]., [address] Organism (CLINICALLY INSIGNIFICANT GROWTH BIA [facility] ([place]) Urine 10/16/2024 11:2 1 AM MANAGER MAC 10/16/2024 2:00 PM MANAGER MAC Narrative [facility] ([place]) - 10/17/2024 3:36 PM MANAGER MAC Urine culture reflexed based upon urinalysis results. Testing performed by [facility] Microbiology Laboratory ([phone]) Satnam Nair MD LAB MICROBIOLOGY - GENERAL O RDERABLES Final Result BIA [facility] ([place]) 1 [facility] [place] [address] * ECG 12 lead (10/16/2024 10:36 AM MANAGER MAC) 10/16/2024 10:3 6 AM MANAGER MAC Narrative [facility] - 10/17/2024 8:41 AM MANAGER MAC Vent Rate: 65 bpm RR Interval: 922 msec MI Interval: 147 msec QRS Duration: 101 msec QT Interval: 408 msec QTC Interval: 419 msec P-R-T [place]: 54 - 21 - 47 degrees IMPRESSION: SINUS RHYTHM NORMAL ECG Electronically Signed By: Dallas Ahn MD Satnam Nair MD ECG ORDERABLES Final Result [facility] * eGFR (10/16/2024 9:47 AM MANAGER MAC) eGFR >90 >=60 mL/min/1. 73 m2 Comment: [...] last reviewed 2021. Blood 10/16/2024 9:47 AM MANAGER MAC 10/16/2024 10:32 AM MANAGER MAC Satnam Nair MD LAB BLOOD ORDERABLES Final R esult [facility] ([place]) 1 [facility] Department [place] [address] * Differential, auto (10/16/2024 9:47 AM MANAGER MAC) Neutrophil abs 2.8 1.5 - 6.5 K/cumm [...] revised on 2018. Blood 10/16/2024 9:47 AM MANAGER MAC 10/16/2024 10:32 AM MANAGER MAC us Satnam Nair MD LAB BLOOD ORDERABLES Final R esult [facility] ([place]) 1 [facility] [place] [address] * CBC with auto differential (10/16/2024 9:47 AM MANAGER MAC) WBC 4.5 3.8 - 9.9 K/cumm Hgb [...] [facility] ([place]) Blood 10/16/2024 9:47 AM MANAGER MAC 10/16/2024 10:32 AM MANAGER MAC Satnam Nair MD LAB BLOOD ORDERABLES Final R esult [facility] ([place]) 1 [facility] [place] [address] * Comprehensive metabolic panel (10/16/2024 9:47 AM MANAGER MAC) Sodium 140 135 - 145 mmol/L Potassium, [...] [facility] ([place]) Blood 10/16/2024 9:47 AM MANAGER MAC 10/16/2024 10:32 AM MANAGER MAC us Satnam Nair MD LAB BLOOD ORDERABLES Final R esult [facility] ([place]) 1 [facility] Department [place] [address] * Rh Immune Globulin Eval (09/20/2024 4:48 AM MANAGER MAC) RhIg Administration 1 vial of Rh Immune Globulin (300 mcg dose) RhIg Eligible Yes, eligible [facility] Blood 09/20/2024 4:48 AM MANAGER MAC 09/20/2024 5:03 AM MANAGER MAC Narrative [facility] - 09/20/2024 5:36 AM MANAGER MAC Number of weeks ?->20 weeks or greater antibody screen result:->Negative Rhogam given?->Given Date Given?->08/01/24 Number of vials requested:->1 Sara Eng MD LAB BLOOD BANK TEST ORDERABL ES Final Result Performing Organization Address [facility] Co de Phone Number [facility] [place] [address] * Bleed Screen (09/20/2024 4:48 AM MANAGER MAC) Bleed Screen Negative Blood 09/20/2024 4:48 AM MANAGER MAC 09/20/2024 5:03 AM MANAGER MAC us Rey Quinonez MD LAB BLOOD BANK TEST ORDERABLE S Final Result Performing Organization Address [facility] Co de Phone Number [facility] [place] [address] * ABO/Rh (09/20/2024 4:48 AM MANAGER MAC) ABO Rh O Negative Blood 09/20/2024 4:48 AM MANAGER MAC 09/20/2024 5:03 AM MANAGER MAC Rey Quinonez MD LAB BLOOD BANK TEST ORDERABLE S Final Result Performing Organization Address [facility] Co de Phone Number [facility] [place] [address] * (ABNORMAL) CBC without differential (09/20/2024 4:48 AM MANAGER MAC) WBC 10.3(H) 3.8 - 9.9 K/cumm Hgb 9.7(L) 11.9 - 15.5 g/dL [facility] Hct 28.4(L) 35.6 - 45.5 % [facility] Plt 230 150 - 400 K/cumm [facility] MPV 10.8 9.1 - 12.3 fL [facility] RBC 3.22(L) 3.90 - 5.20 M/cumm [facility] MCV 88.2 81.3 - 96.4 fL [facility] MCH 30.1 27.1 - 33.3 pg [facility] MCHC 34.2 32.3 - 35.7 g/dL [facility] RDW CV 13.9 11.1 - 14.9 % [facility] RDW SD 44.6 35.7 - 48.1 fL [facility] NRBC abs 0.00 0.00 - 0.01 K/cumm [facility] Blood 09/20/2024 4:48 AM MANAGER MAC 09/20/2024 5:11 AM MANAGER MAC us Sara Eng MD LAB BLOOD ORDERABLES Final R esult [facility] [place] [address] * Surgical pathology (09/19/2024 4:06 PM MANAGER MAC) Tissue (Placenta) 09/19/2024 4:06 PM MANAGER MAC 09/20/2024 8:37 AM MANAGER MAC Narrative PATHOLOGY [facility] - 09/26/2024 2:16 PM MANAGER MAC EPIC results best viewed via link to PDF [facility] Nicole Brown Laboratory [place] [address] Note to Patients: This report may contain [...] Gender: F : 1995 (Age: 29) Address: [address] [place] [id number] Hospital #: [id number] Taken:09/19/2024 Received:09/20/2024 Reported: 09/26/2024 Patient Type: [facility] Inpatient Service: Obstetrics Location: [place] [address] Physician(s): MD Sara Parker M.D. Diagnosis: Placenta, delivery - 662 grams diamnionic, monochorionic, pre-term twin placenta - Acute atherosis - Accelerated villous maturation -Trivascular cords with no histopathologic abnormalities [facility]/09/26/2024 14:16 By this signature, I attest that [...] discrete lesions or infarcts are grossly identified. Bristle Machine Operator sections are submitted: A1 = arbitrarily assigned twin A, cord and membranes; A2-4 = twin A, bilingual call center representative parenchyma; A5 = common membrane and T-zone; A6 = arbitrarily assigned twin B, cord and membranes; A7-9 = twin B, bilingual call center representative parenchyma. Jar 3. sxv/09/21/2024 11:11 PA(s): Catalino Hernandez, MS, PA ([facility])CM By this signature, I attest that the above diagnosis is based upon my personal examination of the slides(and/or other material). Addenda/Procedures The performance characteristics of some immunohistochemical stains, fluorescence in-situ hybridization tests and immunophenotyping by flow cytometry cited in this report (if any) were determined by the Surgical Pathology and Flow Cytometry Departments at [facility] as part of an ongoing quality consultant program and in compliance with federally mandated [...] Surgical Pathology and Flow Cytometry Departments of [facility]. It has not been cleared or approved by the U. S. Food and Drug Administration. IMAGES AND SCANNED DOCUMENTS, IF INCLUDED, ONLY VIEWABLE IN PDF VERSION OF REPORT us Sara Eng MD LAB PATHOLOGY ORDERABLES Fin al Result PATHOLOGY [facility] 3rd Floor [place], [place] [phone] * Epidural Block (09/19/2024 2:45 PM MANAGER MAC) Narrative Abena Denton MD - 09/19/2024 2:45 PM MANAGER MAC Abena Denton MD 09/19/2024 2:50 PM Epidural [...] Final Result * eGFR (09/18/2024 6:21 AM MANAGER MAC) eGFR >90 >=60 mL/min/1. 73 m2 Comment: [...] reviewed 2021. Blood 09/18/2024 6:21 AM MANAGER MAC 09/18/2024 6:32 AM MANAGER MAC Anastasia Amaro MD LAB BLOOD ORDERABLES Final Result Performing Organization Address City/[facility]/ZIP Co de Phone Number [facility] [place] [address] * (ABNORMAL) CBC without differential (09/18/2024 6:21 AM MANAGER MAC) Pathologist [facility] WBC 10.0(H) 3.8 - 9.9 K/cumm Hgb 11.6(L) 11.9 - 15.5 g/dL [facility] Hct 34.0(L) 35.6 - 45.5 % [facility] Plt 250 150 - 400 K/cumm [facility] MPV 11.0 9.1 - 12.3 fL [facility] RBC 3.92 3.90 - 5.20 M/cumm [facility] MCV 86.7 81.3 - 96.4 fL [facility] MCH 29.6 27.1 - 33.3 pg [facility] MCHC 34.1 32.3 - 35.7 g/dL [facility] RDW CV 13.7 11.1 - 14.9 % [facility] RDW SD 43.1 35.7 - 48.1 fL [facility] NRBC abs 0.00 0.00 - 0.01 K/cumm [facility] Blood 09/18/2024 6:21 AM MANAGER MAC 09/18/2024 6:32 AM MANAGER MAC Anastasia Amaro MD LAB BLOOD ORDERABLES Final Result Performing Organization Address City/[facility]/ZIP Co de Phone Number [facility] [place] [address] * Type and screen (09/18/2024 6:21 AM MANAGER MAC) Abiodun, indirect Negative ABO Rh O Negative [facility] Blood 09/18/2024 6:21 AM MANAGER MAC 09/18/2024 6:35 AM MANAGER MAC Narrative [facility] - 09/18/2024 7:42 AM MANAGER MAC Has the patient had Daratumumab or Isatuximab in the past 6 months?->Unknown Anastasia Amaro MD LAB BLOOD BANK TEST ORDERA BLES Final Result [facility] [place] [address] * (ABNORMAL) Comprehensive metabolic panel (09/18/2024 6:21 AM MANAGER MAC) Pathologist [facility] Sodium 134(L) 135 - 145 mmol/L Potassium, pl 3.8 3.3 - 4.9 mmol/L [facility] Chloride 105 97 - 110 mmol/L [facility] CO2 23 22 - 32 mmol/L [facility] Anion gap 6 2 - 15 mmol/L [facility] BUN 9 6 - 25 mg/dL [facility] Creatinine 0.69 0.60 - 1.10 mg/dL [facility] Glucose 68(L) 70 - 199 mg/dL [facility] Comment: Interpretive Data Fasting glucose >/= 126 [...] 9.0 8.5 - 10.3 mg/dL [facility] Bilirubin, total 0.2 0.1 - 1.2 mg/dL [facility] Protein, pl 6.3(L) 6.5 - 8.5 g/dL [facility] Albumin 3.0(L) 3.5 - 5.0 g/dL [facility] Alk phos 125 40 - 130 Units/L [facility] ALT 14 7 - 45 Units/L [facility] AST 16 10 - 45 Units/L [facility] Blood 09/18/2024 6:21 AM MANAGER MAC 09/18/2024 6:32 AM MANAGER MAC us Anastasia Amaro MD LAB BLOOD ORDERABLES Final Result [facility] [place] [address] * nonstress test (09/17/2024 2:58 PM MANAGER MAC) Narrative Sandra Christy MD - 09/17/2024 2:58 PM MANAGER MAC Joellen Schilling MD 09/17/2024 4:04 PM nonstress test Date/Time: 09/17/2024 2:58 PM Performed by: Maureen Calix MD Authorized by: Ana M Rogers MD us Ana M Rogers MD OB GYNE ORDERABLES Fi nal Result * US Ob Follow Up (09/15/2024 1:08 PM MANAGER MAC) Fetus# Fetus1 VIEWPOINT Estimated Weight 1,709 g&grams VIEWPOINT Placenta Details anterior VIEWPOINT Presentation Vertex; Maternal right- low VIEWPOINT Fetus# Fetus2 VIEWPOINT Estimated Weight 2,585 g&grams VIEWPOINT Placenta Details anterior VIEWPOINT Presentation Vertex; Maternal left- high VIEWPOINT Anatomical Region Laterality Modality Abdomen N/A Ultrasound 09/15/2024 1:08 PM MANAGER MAC Impressions 09/15/2024 2:24 PM MANAGER MAC Diamniotic (presumed MCDA) TIUP at 33w33d who is admitted for preE with severe features who presents for growth US was previously determined to be monochorionic by the [facility] MFM practice. A thin dividing membrane [...] previously determined to be monochorionic by the [facility] MFMpractice. A thin dividing membrane and [...] esult * eGFR (09/15/2024 6:17 AM MANAGER MAC) eGFR >90 >=60 mL/min/1. 73 m2 Comment: [...] reviewed 2021. Blood 09/15/2024 6:17 AM MANAGER MAC 09/15/2024 6:31 AM MANAGER MAC us Anastasia Amaro MD LAB BLOOD ORDERABLES Final Result [facility] [place] [address] * (ABNORMAL) CBC without differential (09/15/2024 6:17 AM MANAGER MAC) [facility] WBC 10.1(H) 3.8 - 9.9 K/cumm Hgb 11.7(L) 11.9 - 15.5 g/dL [facility] Hct 34.6(L) 35.6 - 45.5 % [facility] Plt 253 150 - 400 K/cumm [facility] MPV 11.2 9.1 - 12.3 fL [facility] RBC 3.94 3.90 - 5.20 M/cumm [facility] MCV 87.8 81.3 - 96.4 fL [facility] MCH 29.7 27.1 - 33.3 pg [facility] MCHC 33.8 32.3 - 35.7 g/dL [facility] RDW CV 13.8 11.1 - 14.9 % [facility] RDW SD 44.1 35.7 - 48.1 fL [facility] NRBC abs 0.00 0.00 - 0.01 K/cumm [facility] Blood 09/15/2024 6:17 AM MANAGER MAC 09/15/2024 6:31 AM MANAGER MAC Anastasia Amaro MD LAB BLOOD ORDERABLES Final Result [facility] [place] [address] * Type and screen (09/15/2024 6:17 AM MANAGER MAC) [facility] Abiodun, indirect Negative Comment:Patient has previous antibody history ABO Rh O Negative [facility] Blood 09/15/2024 6:17 AM MANAGER MAC 09/15/2024 6:30 AM MANAGER MAC Narrative [facility] - 09/15/2024 7:57 AM MANAGER MAC Has the patient had Daratumumab or Isatuximab in the past 6 months?->Unknown Anastasia Amaro MD LAB BLOOD BANK TEST ORDERA BLES Final Result [facility] [place] [address] * (ABNORMAL) Comprehensive metabolic panel (09/15/2024 6:17 AM MANAGER MAC) Sodium 139 135 - 145 mmol/L Potassium, pl 3.5 3.3 - 4.9 mmol/L [facility] Chloride 106 97 - 110 mmol/L [facility] CO2 21(L) 22 - 32 mmol/L [facility] Anion gap 12 2 - 15 mmol/L [facility] BUN 8 6 - 25 mg/dL [facility] Creatinine 0.66 0.60 - 1.10 mg/dL [facility] Glucose 106 70 - 199 mg/dL [facility] Comment: Interpretive Data Fasting glucose >/= 126 [...] 9.0 8.5 - 10.3 mg/dL [facility] Bilirubin, total <0.2 0.1 - 1.2 mg/dL [facility] Protein, pl 6.4(L) 6.5 - 8.5 g/dL [facility] Albumin 3.0(L) 3.5 - 5.0 g/dL [facility] Alk phos 124 40 - 130 Units/L [facility] ALT 19 7 - 45 Units/L [facility] AST 20 10 - 45 Units/L [facility] Blood 09/15/2024 6:17 AM MANAGER MAC 09/15/2024 6:31 AM MANAGER MAC Anastasia Amaro MD LAB BLOOD ORDERABLES Final Result [facility] [place] [address] * nonstress test (09/13/2024 5:10 PM MANAGER MAC) Narrative Sandra Christy MD - 09/13/2024 5:10 PM MANAGER MAC Anastasia Plaza MD 09/13/2024 5:21 PM 27 [...] Result * eGFR (09/12/2024 6:35 AM MANAGER MAC) eGFR >90 >=60 mL/min/1. 73 m2 Comment: [...] reviewed 2021. Blood 09/12/2024 6:35 AM MANAGER MAC 09/12/2024 6:51 AM MANAGER MAC Anastasia Amaro MD LAB BLOOD ORDERABLES Final Result Performing Organization Address City/[facility] Co de Phone Number [facility] [place] [address] * (ABNORMAL) CBC without differential (09/12/2024 6:35 AM MANAGER MAC) Pathologist [facility] WBC 10.0(H) 3.8 - 9.9 K/cumm Hgb 11.8(L) 11.9 - 15.5 g/dL [facility] Hct 35.3(L) 35.6 - 45.5 % [facility] Plt 226 150 - 400 K/cumm [facility] MPV 11.2 9.1 - 12.3 fL [facility] RBC 3.97 3.90 - 5.20 M/cumm [facility] MCV 88.9 81.3 - 96.4 fL [facility] MCH 29.7 27.1 - 33.3 pg [facility] MCHC 33.4 32.3 - 35.7 g/dL [facility] RDW CV 13.8 11.1 - 14.9 % [facility] RDW SD 44.5 35.7 - 48.1 fL [facility] NRBC abs 0.02(H) 0.00 - 0.01 K/cumm [facility] Blood 09/12/2024 6:35 AM MANAGER MAC 09/12/2024 6:52 AM MANAGER MAC us Anastasia Amaro MD LAB BLOOD ORDERABLES Final Result [facility] [place] [address] * Type and screen (09/12/2024 6:35 AM MANAGER MAC) Pathologist [facility] ABO Rh O Negative Abiodun, indirect Negative [facility] Comment:Patient has previous antibody history Blood 09/12/2024 6:35 AM MANAGER MAC 09/12/2024 6:48 AM MANAGER MAC Narrative [facility] - 09/12/2024 7:49 AM MANAGER MAC Has the patient had Daratumumab or Isatuximab in the past 6 months?->Unknown Anastasia Amaro MD LAB BLOOD BANK TEST ORDERA BLES Final Result [facility] [place] [address] * (ABNORMAL) Comprehensive metabolic panel (09/12/2024 6:35 AM MANAGER MAC) [facility] Sodium 139 135 - 145 mmol/L Potassium, pl 3.8 3.3 - 4.9 mmol/L [facility] Chloride 107 97 - 110 mmol/L [facility] CO2 22 22 - 32 mmol/L [facility] Anion gap 10 2 - 15 mmol/L [facility] BUN 6 6 - 25 mg/dL [facility] Creatinine 0.64 0.60 - 1.10 mg/dL [facility] Glucose 69(L) 70 - 199 mg/dL [facility] Comment: Interpretive Data Fasting glucose >/= 126 [...] 8.8 8.5 - 10.3 mg/dL [facility] Bilirubin, total <0.2 0.1 - 1.2 mg/dL [facility] Protein, pl 6.4(L) 6.5 - 8.5 g/dL [facility] Albumin 3.1(L) 3.5 - 5.0 g/dL [facility] Alk phos 122 40 - 130 Units/L [facility] ALT 22 7 - 45 Units/L [facility] AST 23 10 - 45 Units/L [facility] Blood 09/12/2024 6:35 AM MANAGER MAC 09/12/2024 6:51 AM MANAGER MAC Anastasia Amaro MD LAB BLOOD ORDERABLES Final Result Performing Organization Address [facility] de Phone Number [facility] [place] [address] * eGFR (09/09/2024 6:24 AM MANAGER MAC) Pathologist [facility] eGFR >90 [...] reviewed 2021. Blood 09/09/2024 6:24 AM MANAGER MAC 09/09/2024 6:52 AM MANAGER MAC Anastasia Amaro MD LAB BLOOD ORDERABLES Final Result Performing Organization Address [facility] Co de Phone Number [facility] [place] [address] * (ABNORMAL) CBC without differential (09/09/2024 6:24 AM MANAGER MAC) [facility] WBC 8.6 3.8 - 9.9 K/cumm Hgb 10.9(L) 11.9 - 15.5 g/dL [facility] Hct 33.1(L) 35.6 - 45.5 % [facility] Plt 239 150 - 400 K/cumm [facility] MPV 11.0 9.1 - 12.3 fL [facility] RBC 3.77(L) 3.90 - 5.20 M/cumm [facility] MCV 87.8 81.3 - 96.4 fL [facility] MCH 28.9 27.1 - 33.3 pg [facility] MCHC 32.9 32.3 - 35.7 g/dL [facility] RDW CV 13.8 11.1 - 14.9 % [facility] RDW SD 43.8 35.7 - 48.1 fL [facility] NRBC abs 0.00 0.00 - 0.01 K/cumm [facility] Blood 09/09/2024 6:24 AM MANAGER MAC 09/09/2024 6:52 AM MANAGER MAC us Anastasia Amaro MD LAB BLOOD ORDERABLES Final Result Performing Organization Address City/[facility] Co de Phone Number [facility] [place] [address] [place] [address] * Type and screen (09/09/2024 6:24 AM MANAGER MAC) Pathologist [facility] ABO Rh O Negative Abiodun, indirect Negative [facility] Comment:Patient has previous antibody history Blood 09/09/2024 6:24 AM MANAGER MAC 09/09/2024 7:19 AM MANAGER MAC Narrative [facility] - 09/09/2024 8:51 AM MANAGER MAC Has the patient had Daratumumab or Isatuximab in the past 6 months?->Unknown Anastasia Amaro MD LAB BLOOD BANK TEST ORDERA BLES Final Result Performing Organization Address City/[facility]/ZIP Co de Phone Number [facility] [place] [address] * (ABNORMAL) Comprehensive metabolic panel (09/09/2024 6:24 AM MANAGER MAC) Sodium 141 135 - 145 mmol/L Potassium, pl 3.8 3.3 - 4.9 mmol/L [facility] Chloride 108 97 - 110 mmol/L [facility] CO2 22 22 - 32 mmol/L [facility] Anion gap 11 2 - 15 mmol/L [facility] BUN 8 6 - 25 mg/dL [facility] Creatinine 0.75 0.60 - 1.10 mg/dL [facility] Glucose 70 70 - 199 mg/dL [facility] Comment: Interpretive Data Fasting glucose >/= 126 [...] 8.9 8.5 - 10.3 mg/dL [facility] Bilirubin, total <0.2 0.1 - 1.2 mg/dL [facility] Protein, pl 6.2(L) 6.5 - 8.5 g/dL [facility] Albumin 3.2(L) 3.5 - 5.0 g/dL [facility] Alk phos 117 40 - 130 Units/L [facility] ALT 22 7 - 45 Units/L [facility] AST 23 10 - 45 Units/L [facility] Blood 09/09/2024 6:24 AM MANAGER MAC 09/09/2024 6:52 AM MANAGER MAC us Anastasia Amaro MD LAB BLOOD ORDERABLES Final Result [facility] Department [place] [address] * US Ob Limited (09/08/2024 10:29 AM MANAGER MAC) Fetus# Fetus1 VIEWPOINT Placenta Details anterior VIEWPOINT Presentation Vertex; Maternal right- low VIEWPOINT Fetus# Fetus2 VIEWPOINT Placenta Details anterior VIEWPOINT Presentation Vertex; Maternal left- high (presenting) VIEWPOINT Anatomical Region Laterality Modality Abdomen N/A Ultrasound 09/08/2024 10:2 9 AM MANAGER MAC Impressions 09/08/2024 11:25 AM MANAGER MAC 1. Mo/di twin IUP at 32w 3d. [...] * nonstress test (09/06/2024 8:38 PM MANAGER MAC) Narrative Anastasia Amaro MD - 09/06/2024 8:38 PM MANAGER MAC Pauline Simms MD 09/06/2024 8:41 PM Baby A FHR Baseline: 125 Variability: moderate Accelerations: absent Decelerations: absent in last part of tracing, was initially having small variable decels in monitoring Reactive: Yes Baby B FHR Baseline: 130 Variability: moderate Accelerations: present Decelerations: absent Reactive: Yes 29 y.o. at 32w1d a/f preeclampsia with SF On monitor [id number] Contractions: absent I have reviewed NST and instructed RN to take off monitor Pauline Simms MD us Ana M Rogers MD OB GYNE ORDERABLES Fi nal Result * eGFR (09/06/2024 4:31 AM MANAGER MAC) Pathologist [facility] eGFR >90 [...] last reviewed 2021. Blood 09/06/2024 4:31 AM MANAGER MAC 09/06/2024 4:53 AM MANAGER MAC us Anastasia Amaro MD LAB BLOOD ORDERABLES Final Result [facility] Department [place] [address] * (ABNORMAL) CBC without differential (09/06/2024 4:31 AM MANAGER MAC) Pathologist [facility] WBC 10.3(H) 3.8 - 9.9 K/cumm Hgb 11.7(L) 11.9 - 15.5 g/dL [facility] Hct 34.5(L) 35.6 - 45.5 % [facility] Plt 249 150 - 400 K/cumm [facility] MPV 11.1 9.1 - 12.3 fL [facility] RBC 3.96 3.90 - 5.20 M/cumm [facility] MCV 87.1 81.3 - 96.4 fL [facility] MCH 29.5 27.1 - 33.3 pg [facility] MCHC 33.9 32.3 - 35.7 g/dL [facility] RDW CV 13.6 11.1 - 14.9 % [facility] RDW SD 42.7 35.7 - 48.1 fL [facility] NRBC abs 0.00 0.00 - 0.01 K/cumm [facility] Blood 09/06/2024 4:31 AM MANAGER MAC 09/06/2024 4:54 AM MANAGER MAC Anastasia Amaro MD LAB BLOOD ORDERABLES Final Result Performing Organization Address City/[facility] Co de Phone Number [facility] [place] [place] [address] * Type and screen (09/06/2024 4:31 AM MANAGER MAC) [facility] ABO Rh O Negative Abiodun, indirect Negative [facility] Comment:Patient has previous antibody history Blood 09/06/2024 4:31 AM MANAGER MAC 09/06/2024 6:11 AM MANAGER MAC Narrative [facility] - 09/06/2024 7:16 AM MANAGER MAC Has the patient had Daratumumab or Isatuximab in the past 6 months?->Unknown Anastasia Amaro MD LAB BLOOD BANK TEST ORDERA BLES Final Result Performing Organization Address [facility] Co de Phone Number [facility] [place] [address] [place] [address] * (ABNORMAL) Comprehensive metabolic panel (09/06/2024 4:31 AM MANAGER MAC) Sodium 138 135 - 145 mmol/L Potassium, pl 3.6 3.3 - 4.9 mmol/L [facility] Chloride 105 97 - 110 mmol/L [facility] CO2 24 22 - 32 mmol/L [facility] Anion gap 9 2 - 15 mmol/L [facility] BUN 7 6 - 25 mg/dL [facility] Creatinine 0.63 0.60 - 1.10 mg/dL [facility] Glucose 62(L) 70 - 199 mg/dL [facility] Comment: Interpretive Data Fasting glucose >/= 126 [...] 9.3 8.5 - 10.3 mg/dL [facility] Bilirubin, total 0.3 0.1 - 1.2 mg/dL [facility] Protein, pl 6.6 6.5 - 8.5 g/dL [facility] Albumin 3.2(L) 3.5 - 5.0 g/dL [facility] Alk phos 118 40 - 130 Units/L [facility] ALT 23 7 - 45 Units/L [facility] AST 22 10 - 45 Units/L [facility] Blood 09/06/2024 4:31 AM MANAGER MAC 09/06/2024 4:53 AM MANAGER MAC us Anastasia Amaro MD LAB BLOOD ORDERABLES Final Result [facility] [place] [address] * Group B streptococcal culture Vaginal/Rectal (09/03/2024 10:29 AM MANAGER MAC) Report Final Report: Negative Vaginal/Rectal 09/03/2024 10 :29 AM MANAGER MAC 09/03/2024 10:47 AM MANAGER MAC Narrative [facility] - 09/07/2024 11:05 AM MANAGER MAC Testing performed by [facility] Microbiology Laboratory ([phone]). us Joellen Julio MD LAB MICROBIOLOGY - GENERAL O RDERABLES Final Result Performing Organization Address City/[facility]/ZIP Co de Phone Number [facility] [place] [address] [place] [address] * eGFR (09/03/2024 5:26 AM MANAGER MAC) eGFR >90 >=60 mL/min/1. 73 m2 Comment: [...] reviewed 2021. Blood 09/03/2024 5:26 AM MANAGER MAC 09/03/2024 5:39 AM MANAGER MAC us Anastasia Amaro MD LAB BLOOD ORDERABLES Final Result [facility] [place] [address] * (ABNORMAL) CBC without differential (09/03/2024 5:26 AM MANAGER MAC) [facility] WBC 12.1(H) 3.8 - 9.9 K/cumm Hgb 11.7(L) 11.9 - 15.5 g/dL [facility] Hct 34.0(L) 35.6 - 45.5 % [facility] Plt 273 150 - 400 K/cumm [facility] MPV 11.0 9.1 - 12.3 fL [facility] RBC 3.97 3.90 - 5.20 M/cumm [facility] MCV 85.6 81.3 - 96.4 fL [facility] MCH 29.5 27.1 - 33.3 pg [facility] MCHC 34.4 32.3 - 35.7 g/dL [facility] RDW CV 13.3 11.1 - 14.9 % [facility] RDW SD 41.7 35.7 - 48.1 fL [facility] NRBC abs 0.00 0.00 - 0.01 K/cumm [facility] Blood 09/03/2024 5:26 AM MANAGER MAC 09/03/2024 5:39 AM MANAGER MAC Anastasia Amaro MD LAB BLOOD ORDERABLES Final Result [facility] [place] [address] * Type and screen (09/03/2024 5:26 AM MANAGER MAC) [facility] Abiodun, indirect Negative Comment:Patient has previous antibody history ABO Rh O Negative [facility] Blood 09/03/2024 5:26 AM MANAGER MAC 09/03/2024 5:32 AM MANAGER MAC Narrative [facility] - 09/03/2024 6:27 AM MANAGER MAC Has the patient had Daratumumab or Isatuximab in the past 6 months?->Unknown Anastasia Amaro MD LAB BLOOD BANK TEST ORDERA BLES Final Result [facility] [place] [address] * (ABNORMAL) Comprehensive metabolic panel (09/03/2024 5:26 AM MANAGER MAC) Sodium 139 135 - 145 mmol/L Potassium, pl 4.0 3.3 - 4.9 mmol/L [facility] Chloride 105 97 - 110 mmol/L [facility] CO2 20(L) 22 - 32 mmol/L [facility] Anion gap 14 2 - 15 mmol/L [facility] BUN 8 6 - 25 mg/dL [facility] Creatinine 0.55(L) 0.60 - 1.10 mg/dL [facility] Glucose 68(L) 70 - 199 mg/dL [facility] Comment: Interpretive Data Fasting glucose >/= 126 [...] 9.3 8.5 - 10.3 mg/dL [facility] Bilirubin, total 0.3 0.1 - 1.2 mg/dL [facility] Protein, pl 6.4(L) 6.5 - 8.5 g/dL [facility] Albumin 3.3(L) 3.5 - 5.0 g/dL [facility] Alk phos 111 40 - 130 Units/L [facility] ALT 22 7 - 45 Units/L [facility] AST 24 10 - 45 Units/L [facility] Blood 09/03/2024 5:26 AM MANAGER MAC 09/03/2024 5:39 AM MANAGER MAC us Anastasia Amaro MD LAB BLOOD ORDERABLES Final Result [facility] [place] [address] * ECG 12 lead (09/02/2024 4:33 PM MANAGER MAC) Ventricular Rate EKG/Min 110 BPM [facility] Atrial Rate 110 BPM [facility] MI-Interval (MSEC) 130 ms [facility] QRS-Interval (MSEC) 82 ms [facility] QT-Interval (MSEC) 340 ms [facility] QTc 460 ms [facility] P [place] 55 degrees [facility] R [place] 22 degrees [facility] T [place] 30 degrees [facility] Diagnosis Sinus tachycardia Otherwise normal ECG No previous ECGs available Confirmed by SAMANTA KAPLAN M.D ([id number]) on 09/06/2024 2:44:26 PM [facility] 09/02/2024 4:33 PM MANAGER MAC 09/06/2024 2:44 PM MANAGER MAC us Joellen Julio MD ECG ORDERABLES Final Result Performing Organization Address [facility] Co de Phone Number [facility] * eGFR (08/31/2024 6:20 AM MANAGER MAC) eGFR >90 >=60 mL/min/1. 73 m2 Comment: [...] reviewed 2021. Blood 08/31/2024 6:20 AM MANAGER MAC 08/31/2024 7:25 AM MANAGER MAC Anastasia Amaro MD LAB BLOOD ORDERABLES Final Result Performing Organization Address City/[facility] Co de Phone Number [facility] [place] [address] [place] [address] * (ABNORMAL) CBC without differential (08/31/2024 6:20 AM MANAGER MAC) WBC 10.5(H) 3.8 - 9.9 K/cumm Hgb 11.5(L) 11.9 - 15.5 g/dL [facility] Hct 34.1(L) 35.6 - 45.5 % [facility] Plt 282 150 - 400 K/cumm [facility] MPV 10.9 9.1 - 12.3 fL [facility] RBC 3.93 3.90 - 5.20 M/cumm [facility] MCV 86.8 81.3 - 96.4 fL [facility] MCH 29.3 27.1 - 33.3 pg [facility] [place] MCHC 33.7 32.3 - 35.7 g/dL [facility] RDW CV 13.7 11.1 - 14.9 % [facility] [place] RDW SD 42.6 35.7 - 48.1 fL [facility] [place] NRBC abs 0.00 0.00 - 0.01 K/cumm [facility] [place] Blood 08/31/2024 6:20 AM MANAGER MAC 08/31/2024 7:25 AM MANAGER MAC Anastasia Amaro MD LAB BLOOD ORDERABLES Final Result Performing Organization Address City/[facility]/ZIP Co de Phone Number [facility] [place] [address] * Type and screen (08/31/2024 6:20 AM MANAGER MAC) ABO Rh O Negative Abiodun, indirect Negative [facility] Comment:Patient has previous antibody history Blood 08/31/2024 6:20 AM MANAGER MAC 08/31/2024 7:41 AM MANAGER MAC Narrative [facility] [place] - 08/31/2024 8:26 AM MANAGER MAC Has the patient had Daratumumab or Isatuximab in the past 6 months?->Unknown Anastasia Amaro MD LAB BLOOD BANK TEST ORDERA BLES Final Result [facility] [place] [address] * (ABNORMAL) Comprehensive metabolic panel (08/31/2024 6:20 AM MANAGER MAC) Sodium 137 135 - 145 mmol/L Potassium, pl 3.7 3.3 - 4.9 mmol/L [facility] [place] Chloride 103 97 - 110 mmol/L [facility] [place] CO2 22 22 - 32 mmol/L [facility] [place] Anion gap 12 2 - 15 mmol/L [facility] [place] BUN 6 6 - 25 mg/dL [facility] [place] Creatinine 0.56(L) 0.60 - 1.10 mg/dL [facility] [place] Glucose 70 70 - 199 mg/dL [facility] Comment: Interpretive Data Fasting glucose >/= 126 [...] 9.5 8.5 - 10.3 mg/dL [facility] [place] Bilirubin, total 0.2 0.1 - 1.2 mg/dL [facility] [place] Protein, pl 6.4(L) 6.5 - 8.5 g/dL [facility] [place] Albumin 3.2(L) 3.5 - 5.0 g/dL [facility] [place] Alk phos 103 40 - 130 Units/L [facility] [place] ALT 28 7 - 45 Units/L [facility] AST 25 10 - 45 Units/L [facility] [place] Blood 08/31/2024 6:20 AM MANAGER MAC 08/31/2024 7:25 AM MANAGER MAC Anastasia Amaro MD LAB BLOOD ORDERABLES Final Result [facility] [place] [address] * nonstress test (08/29/2024 2:32 PM MANAGER MAC) Narrative Nini Cortez MD - 08/29/2024 2:32 PM MANAGER MAC Maureen Calix MD 08/29/2024 3:38 PM nonstress test Date/Time: 08/29/2024 2:32 PM Performed by: Muareen Calix MD Authorized by: Ana M Rogers MD Ana M Rogers MD OB GYNE ORDERABLES Fi nal Result * nonstress test (08/28/2024 7:47 PM MANAGER MAC) Narrative Nini Cortez MD - 08/28/2024 7:47 PM MANAGER MAC Francisca Yun MD 08/28/2024 7:48 PM A FHR Baseline: 120 Variability: moderate Reactive: Yes Contractions: absent B FHR Baseline: 130 Variability: moderate Reactive: Yes Contractions: absent Comments: No decels x2 I have reviewed NST and instructed RN to take off monitor Francisca Yun MD Ana M Rogers MD OB GYNE ORDERABLES Fi nal Result * eGFR (08/28/2024 6:00 AM MANAGER MAC) eGFR >90 >=60 mL/min/1. 73 m2 Comment: [...] reviewed 2021. Blood 08/28/2024 6:00 AM MANAGER MAC 08/28/2024 6:13 AM MANAGER MAC us Anastasia Amaro MD LAB BLOOD ORDERABLES Final Result [facility] [place] [address] * (ABNORMAL) CBC without differential (08/28/2024 6:00 AM MANAGER MAC) WBC 10.3(H) 3.8 - 9.9 K/cumm Hgb 11.2(L) 11.9 - 15.5 g/dL [facility] Hct 33.0(L) 35.6 - 45.5 % [facility] Plt 289 150 - 400 K/cumm [facility] MPV 10.7 9.1 - 12.3 fL [facility] RBC 3.78(L) 3.90 - 5.20 M/cumm [facility] MCV 87.3 81.3 - 96.4 fL [facility] MCH 29.6 27.1 - 33.3 pg [facility] MCHC 33.9 32.3 - 35.7 g/dL [facility] RDW CV 13.7 11.1 - 14.9 % [facility] RDW SD 43.6 35.7 - 48.1 fL [facility] NRBC abs 0.00 0.00 - 0.01 K/cumm [facility] Blood 08/28/2024 6:00 AM MANAGER MAC 08/28/2024 6:20 AM MANAGER MAC Anastasia Amaro MD LAB BLOOD ORDERABLES Final Result Performing Organization Address [facility] [place] [address] * Type and screen (08/28/2024 6:00 AM MANAGER MAC) Pathologist [facility] ABO Rh O Negative Comment:Patient has previous antibody history Abiodun, indirect Negative [facility] Blood 08/28/2024 6:00 AM MANAGER MAC 08/28/2024 6:54 AM MANAGER MAC Narrative [facility] - 08/28/2024 7:53 AM MANAGER MAC Has the patient had Daratumumab or Isatuximab in the past 6 months?->Unknown Anastasia Amaro MD LAB BLOOD BANK TEST ORDERA BLES Final Result Performing Organization Address [facility] [place] [address] * (ABNORMAL) Comprehensive metabolic panel (08/28/2024 6:00 AM MANAGER MAC) [facility] Sodium 137 135 - 145 mmol/L Potassium, pl 3.6 3.3 - 4.9 mmol/L [facility] Chloride 105 97 - 110 mmol/L [facility] CO2 21(L) 22 - 32 mmol/L [facility] Anion gap 11 2 - 15 mmol/L [facility] BUN 8 6 - 25 mg/dL [facility] Creatinine 0.52(L) 0.60 - 1.10 mg/dL [facility] Glucose 74 70 - 199 mg/dL [facility] Comment: Interpretive Data Fasting glucose >/= 126 [...] Calcium 9.3 8.5 - 10.3 mg/dL [facility] Bilirubin, total 0.2 0.1 - 1.2 mg/dL [facility] Protein, pl 6.2(L) 6.5 - 8.5 g/dL [facility] Albumin 3.2(L) 3.5 - 5.0 g/dL [facility] Alk phos 96 40 - 130 Units/L [facility] ALT 25 7 - 45 Units/L [facility] AST 22 10 - 45 Units/L [facility] Blood 08/28/2024 6:00 AM MANAGER MAC 08/28/2024 6:13 AM MANAGER MAC Anastasia Amaro MD LAB BLOOD ORDERABLES Final Result [facility] [place] [address] * eGFR (08/25/2024 6:19 AM MANAGER MAC) eGFR >90 >=60 mL/min/1. 73 m2 Comment: [...] reviewed 2021. Blood 08/25/2024 6:19 AM MANAGER MAC 08/25/2024 6:33 AM MANAGER MAC Anastasia Amaro MD LAB BLOOD ORDERABLES Final Result Performing Organization Address City/[facility]/ZIP Co de Phone Number [facility] [place] [address] * (ABNORMAL) CBC without differential (08/25/2024 6:19 AM MANAGER MAC) WBC 10.5(H) 3.8 - 9.9 K/cumm Hgb 11.4(L) 11.9 - 15.5 g/dL [facility] Hct 33.4(L) 35.6 - 45.5 % [facility] Plt 299 150 - 400 K/cumm [facility] MPV 10.6 9.1 - 12.3 fL [facility] RBC 3.90 3.90 - 5.20 M/cumm [facility] MCV 85.6 81.3 - 96.4 fL [facility] MCH 29.2 27.1 - 33.3 pg [facility] MCHC 34.1 32.3 - 35.7 g/dL [facility] RDW CV 13.4 11.1 - 14.9 % [facility] RDW SD 41.7 35.7 - 48.1 fL [facility] NRBC abs 0.00 0.00 - 0.01 K/cumm [facility] Blood 08/25/2024 6:19 AM MANAGER MAC 08/25/2024 6:32 AM MANAGER MAC Anastasia Amaro MD LAB BLOOD ORDERABLES Final Result Performing Organization Address City/[facility]/ZIP Co de Phone Number [facility] [place] [address] [place] [address] * Type and screen (08/25/2024 6:19 AM MANAGER MAC) Abiodun, indirect Negative Comment:Patient has previous antibody history ABO Rh O Negative [facility] Blood 08/25/2024 6:19 AM MANAGER MAC 08/25/2024 7:06 AM MANAGER MAC Narrative [facility] - 08/25/2024 8:01 AM MANAGER MAC Has the patient had Daratumumab or Isatuximab in the past 6 months?->Unknown us Anastasia Amaro MD LAB BLOOD BANK TEST ORDERA BLES Final Result [facility] [place] [address] * (ABNORMAL) Comprehensive metabolic panel (08/25/2024 6:19 AM MANAGER MAC) Pathologist [facility] Sodium 139 135 - 145 mmol/L Potassium, pl 3.5 3.3 - 4.9 mmol/L [facility] Chloride 105 97 - 110 mmol/L [facility] CO2 22 22 - 32 mmol/L [facility] Anion gap 12 2 - 15 mmol/L [facility] BUN 6 6 - 25 mg/dL [facility] Creatinine 0.53(L) 0.60 - 1.10 mg/dL [facility] Glucose 70 70 - 199 mg/dL [facility] Comment: Interpretive Data Fasting glucose >/= 126 [...] 9.2 8.5 - 10.3 mg/dL [facility] Bilirubin, total 0.2 0.1 - 1.2 mg/dL [facility] Protein, pl 6.4(L) 6.5 - 8.5 g/dL [facility] Albumin 3.2(L) 3.5 - 5.0 g/dL [facility] Alk phos 92 40 - 130 Units/L [facility] ALT 22 7 - 45 Units/L [facility] AST 22 10 - 45 Units/L [facility] Blood 08/25/2024 6:19 AM MANAGER MAC 08/25/2024 6:33 AM MANAGER MAC us Anastasia Amaro MD LAB BLOOD ORDERABLES Final Result [facility] Department [place] [address] * US Ob Follow Up (08/24/2024 9:37 AM MANAGER MAC) Fetus# Fetus1 VIEWPOINT Estimated Weight 1,348 g&grams VIEWPOINT Placenta Details anterior VIEWPOINT Presentation Vertex; Maternal right- low VIEWPOINT Fetus# Fetus2 VIEWPOINT Estimated Weight 1,784 g&grams VIEWPOINT Placenta Details anterior VIEWPOINT Presentation Vertex; Maternal left- high (presenting) VIEWPOINT Anatomical Region Laterality Modality Abdomen N/A Ultrasound 08/24/2024 9:37 AM MANAGER MAC Impressions 08/24/2024 2:06 PM MANAGER MAC 1. Presumed Mo/Di twin IUP at 30w [...] d * eGFR (08/22/2024 6:02 AM MANAGER MAC) eGFR >90 >=60 mL/min/1. 73 m2 Comment: [...] reviewed 2021. Blood 08/22/2024 6:02 AM MANAGER MAC 08/22/2024 6:18 AM MANAGER MAC us Anastasia Amaro MD LAB BLOOD ORDERABLES Final Result Performing Organization Address City/[facility]/ZIP Co de Phone Number [facility] [place] [address] * (ABNORMAL) CBC without differential (08/22/2024 6:02 AM MANAGER MAC) Pathologist [facility] WBC 12.2(H) 3.8 - 9.9 K/cumm Hgb 11.8(L) 11.9 - 15.5 g/dL [facility] Hct 34.4(L) 35.6 - 45.5 % [facility] Plt 277 150 - 400 K/cumm [facility] MPV 10.4 9.1 - 12.3 fL [facility] RBC 4.02 3.90 - 5.20 M/cumm [facility] MCV 85.6 81.3 - 96.4 fL [facility] MCH 29.4 27.1 - 33.3 pg [facility] MCHC 34.3 32.3 - 35.7 g/dL [facility] RDW CV 13.6 11.1 - 14.9 % [facility] RDW SD 42.4 35.7 - 48.1 fL [facility] NRBC abs 0.00 0.00 - 0.01 K/cumm [facility] Blood 08/22/2024 6:02 AM MANAGER MAC 08/22/2024 6:18 AM MANAGER MAC us Anastasia Amaro MD LAB BLOOD ORDERABLES Final Result Performing Organization Address City/[facility]/ZIP Co de Phone Number [facility] Department [place] [address] * Type and screen (08/22/2024 6:02 AM MANAGER MAC) Pathologist [facility] Abiodun, indirect Negative Comment:Patient has previous antibody history ABO Rh O Negative [facility] Blood 08/22/2024 6:02 AM MANAGER MAC 08/22/2024 6:24 AM MANAGER MAC Narrative [facility] - 08/22/2024 7:25 AM MANAGER MAC Has the patient had Daratumumab or Isatuximab in the past 6 months?->Unknown Anastasia Amaro MD LAB BLOOD BANK TEST ORDERA BLES Final Result [facility] [place] [address] * (ABNORMAL) Comprehensive metabolic panel (08/22/2024 6:02 AM MANAGER MAC) Sodium 138 135 - 145 mmol/L Potassium, pl 3.7 3.3 - 4.9 mmol/L [facility] Chloride 104 97 - 110 mmol/L [facility] CO2 23 22 - 32 mmol/L [facility] Anion gap 11 2 - 15 mmol/L [facility] BUN 7 6 - 25 mg/dL [facility] Creatinine 0.53(L) 0.60 - 1.10 mg/dL [facility] Glucose 72 70 - 199 mg/dL [facility] Comment: Interpretive Data Fasting glucose >/= 126 [...] 9.3 8.5 - 10.3 mg/dL [facility] Bilirubin, total 0.2 0.1 - 1.2 mg/dL [facility] Protein, pl 6.6 6.5 - 8.5 g/dL [facility] Albumin 3.2(L) 3.5 - 5.0 g/dL [facility] Alk phos 90 40 - 130 Units/L [facility] ALT 19 7 - 45 Units/L [facility] AST 18 10 - 45 Units/L [facility] Blood 08/22/2024 6:02 AM MANAGER MAC 08/22/2024 6:18 AM MANAGER MAC us Anastasia Amaro MD LAB BLOOD ORDERABLES Final Result [facility] [place] [address] * eGFR (08/19/2024 6:25 AM MANAGER MAC) eGFR >90 >=60 mL/min/1. 73 m2 Comment: [...] reviewed 2021. Blood 08/19/2024 6:25 AM MANAGER MAC 08/19/2024 7:23 AM MANAGER MAC us Anastasia Amaro MD LAB BLOOD ORDERABLES Final Result [facility] [place] [address] * (ABNORMAL) CBC without differential (08/19/2024 6:25 AM MANAGER MAC) WBC 11.2(H) 3.8 - 9.9 K/cumm Hgb 11.3(L) 11.9 - 15.5 g/dL [facility] Hct 33.9(L) 35.6 - 45.5 % [facility] Plt 249 150 - 400 K/cumm [facility] MPV 10.6 9.1 - 12.3 fL [facility] RBC 3.89(L) 3.90 - 5.20 M/cumm [facility] MCV 87.1 81.3 - 96.4 fL [facility] MCH 29.0 27.1 - 33.3 pg [facility] MCHC 33.3 32.3 - 35.7 g/dL [facility] RDW CV 13.4 11.1 - 14.9 % [facility] RDW SD 42.5 35.7 - 48.1 fL [facility] NRBC abs 0.00 0.00 - 0.01 K/cumm [facility] Blood 08/19/2024 6:25 AM MANAGER MAC 08/19/2024 7:23 AM MANAGER MAC Anastasia Amaro MD LAB BLOOD ORDERABLES Final Result Performing Organization Address City/[facility] Co de Phone Number [facility] [place] [place] [address] * Type and screen (08/19/2024 6:25 AM MANAGER MAC) [facility] Abiodun, indirect Negative ABO Rh O Negative [facility] Comment:Patient has previous antibody history Blood 08/19/2024 6:25 AM MANAGER MAC 08/19/2024 7:31 AM MANAGER MAC Narrative [facility] - 08/19/2024 8:22 AM MANAGER MAC Has the patient had Daratumumab or Isatuximab in the past 6 months?->Unknown Anastasia Amaro MD LAB BLOOD BANK TEST ORDERA BLES Final Result Performing Organization Address City/[facility]/ZIP Co de Phone Number [facility] [place] [address] * (ABNORMAL) Comprehensive metabolic panel (08/19/2024 6:25 AM MANAGER MAC) Sodium 138 135 - 145 mmol/L Potassium, pl 3.7 3.3 - 4.9 mmol/L [facility] Chloride 105 97 - 110 mmol/L [facility] CO2 23 22 - 32 mmol/L [facility] Anion gap 10 2 - 15 mmol/L [facility] BUN 7 6 - 25 mg/dL [facility] Creatinine 0.54(L) 0.60 - 1.10 mg/dL [facility] Glucose 68(L) 70 - 199 mg/dL [facility] Comment: Interpretive Data Fasting glucose >/= 126 [...] 9.3 8.5 - 10.3 mg/dL [facility] Bilirubin, total 0.2 0.1 - 1.2 mg/dL [facility] Protein, pl 6.3(L) 6.5 - 8.5 g/dL [facility] Albumin 3.0(L) 3.5 - 5.0 g/dL [facility] Alk phos 88 40 - 130 Units/L [facility] ALT 13 7 - 45 Units/L [facility] AST 18 10 - 45 Units/L [facility] Blood 08/19/2024 6:25 AM MANAGER MAC 08/19/2024 7:23 AM MANAGER MAC us Anastasia Amaro MD LAB BLOOD ORDERABLES Final Result [facility] [place] [address] * US Ob Limited (08/16/2024 8:35 AM MANAGER MAC) Fetus# Fetus1 VIEWPOINT Placenta Details anterior VIEWPOINT Presentation Transverse, maternal right-low VIEWPOINT Fetus# Fetus2 VIEWPOINT Placenta Details anterior VIEWPOINT Presentation Vertex; Maternal left- high VIEWPOINT Anatomical Region Laterality Modality Abdomen N/A Ultrasound 08/16/2024 8:36 AM MANAGER MAC Impressions 08/16/2024 2:23 PM MANAGER MAC Diamniotic (presumed MCDA) TIUP at 29w1d who is admitted for preE with severe features who presents for TTTS screen.Chorionicity was not fully assessed but was previously determined to be monochorionic by the [facility] practice. Anatomic surveys were [...] previously determined to be monochorionic by the [facility] MFMpractice. Anatomic surveys were also completed [...] * Antibody identification (08/16/2024 7:34 AM MANAGER MAC) Antibody ID 1 Passive Anti-D Blood 08/16/2024 7:34 AM MANAGER MAC 08/16/2024 7:34 AM MANAGER MAC us Anastasia Amaro MD LAB BLOOD BANK TEST ORDERA BLES Final Result [facility] [place] [address] * eGFR (08/16/2024 6:15 AM MANAGER MAC) eGFR >90 >=60 mL/min/1. 73 m2 Comment: [...] reviewed 2021. Blood 08/16/2024 6:15 AM MANAGER MAC 08/16/2024 6:29 AM MANAGER MAC us Anastasia Amaro MD LAB BLOOD ORDERABLES Final Result Performing Organization Address City/[facility]/ZIP Co de Phone Number [facility] [place] [address] * Thyroid Function [place] (08/16/2024 6:15 AM MANAGER MAC) [facility] TSH 3.83 0.30 - 4.20 mcIUnit/mL Blood 08/16/2024 6:15 AM MANAGER MAC 08/16/2024 6:29 AM MANAGER MAC Anastasia Amaro MD LAB BLOOD ORDERABLES Final Result Performing Organization Address City/[facility]/ZIP Co de Phone Number [facility] [place] [place] [address] * (ABNORMAL) CBC without differential (08/16/2024 6:15 AM MANAGER MAC) [facility] WBC 10.9(H) 3.8 - 9.9 K/cumm Hgb 11.6(L) 11.9 - 15.5 g/dL [facility] Hct 34.0(L) 35.6 - 45.5 % [facility] Plt 257 150 - 400 K/cumm [facility] MPV 10.4 9.1 - 12.3 fL [facility] RBC 3.95 3.90 - 5.20 M/cumm [facility] MCV 86.1 81.3 - 96.4 fL [facility] MCH 29.4 27.1 - 33.3 pg [facility] MCHC 34.1 32.3 - 35.7 g/dL [facility] RDW CV 13.3 11.1 - 14.9 % [facility] RDW SD 41.5 35.7 - 48.1 fL [facility] NRBC abs 0.00 0.00 - 0.01 K/cumm [facility] Blood 08/16/2024 6:15 AM MANAGER MAC 08/16/2024 6:30 AM MANAGER MAC Anastasia Amaro MD LAB BLOOD ORDERABLES Final Result Performing Organization Address City/[facility]/ZIP Co de Phone Number [facility] [place] [address] * (ABNORMAL) Type and screen (08/16/2024 6:15 AM MANAGER MAC) Abiodun, indirect Positive(A) ABO Rh O Negative [facility] Blood 08/16/2024 6:15 AM MANAGER MAC 08/16/2024 6:25 AM MANAGER MAC Narrative [facility] - 08/16/2024 7:34 AM MANAGER MAC Has the patient had Daratumumab or Isatuximab in the past 6 months?->Unknown Anastasia Amaro MD LAB BLOOD BANK TEST ORDERA BLES Final Result [facility] [place] [address] * (ABNORMAL) Comprehensive metabolic panel (08/16/2024 6:15 AM MANAGER MAC) Sodium 139 135 - 145 mmol/L Potassium, pl 3.4 3.3 - 4.9 mmol/L [facility] Chloride 105 97 - 110 mmol/L [facility] CO2 23 22 - 32 mmol/L [facility] Anion gap 11 2 - 15 mmol/L [facility] BUN 8 6 - 25 mg/dL [facility] Creatinine 0.51(L) 0.60 - 1.10 mg/dL [facility] Glucose 72 70 - 199 mg/dL [facility] Comment: Interpretive Data Fasting glucose >/= 126 [...] 9.2 8.5 - 10.3 mg/dL [facility] Bilirubin, total 0.2 0.1 - 1.2 mg/dL [facility] Protein, pl 6.4(L) 6.5 - 8.5 g/dL [facility] Albumin 3.2(L) 3.5 - 5.0 g/dL [facility] Alk phos 86 40 - 130 Units/L [facility] ALT 16 7 - 45 Units/L [facility] AST 16 10 - 45 Units/L [facility] Blood 08/16/2024 6:15 AM MANAGER MAC 08/16/2024 6:29 AM MANAGER MAC us Anastasia Amaro MD LAB BLOOD ORDERABLES Final Result Performing Organization Address [facility] Co de Phone Number [facility] [place] [address] * POCT glucose (08/14/2024 3:06 PM MANAGER MAC) Pathologist [facility] Glucose, POC 103 70 - 199 mg/dL Comment:Post Meal Glucose comment 1 Post Meal [facility] Blood 08/14/2024 3:06 PM MANAGER MAC 08/14/2024 3:06 PM MANAGER MAC Anastasia Amaro MD LAB POCT ORDERABLES - JELENA CE Final Result Performing Organization Address [facility] de Phone Number [facility] [place] [address] * ECG 12 lead (08/13/2024 9:02 AM MANAGER MAC) Ventricular Rate EKG/Min 122 BPM [facility] Atrial Rate 122 BPM [facility] MI-Interval (MSEC) 132 ms [facility] QRS-Interval (MSEC) 80 ms [facility] QT-Interval (MSEC) 324 ms [facility] QTc 461 ms [facility] P [place] 49 degrees [facility] R [place] 18 degrees [facility] T [place] 29 degrees [facility] Diagnosis Sinus tachycardia Otherwise normal ECG When compared with ECG of 04-AUG-2024 17:45, No significant change was found Confirmed by SAMANTA KAPLAN M.D ([id number]) on 08/15/2024 12:21:02 PM [facility] 08/13/2024 9:02 AM MANAGER MAC 08/15/2024 12:21 PM MANAGER MAC us Anastasia Amaro MD ECG ORDERABLES Final Resu lt [facility] * Antibody identification (08/13/2024 7:42 AM MANAGER MAC) Antibody ID 1 Passive Anti-D Blood 08/13/2024 7:42 AM MANAGER MAC 08/13/2024 7:42 AM MANAGER MAC us Anastasia Amaro MD LAB BLOOD BANK TEST ORDERA BLES Final Result [facility] [place] [address] * eGFR (08/13/2024 5:44 AM MANAGER MAC) eGFR >90 >=60 mL/min/1. 73 m2 Comment: [...] reviewed 2021. Blood 08/13/2024 5:44 AM MANAGER MAC 08/13/2024 6:05 AM MANAGER MAC Anastasia Amaro MD LAB BLOOD ORDERABLES Final Result Performing Organization Address [facility] [place] [address] * HIV 1/2 Antibody plus p24 Antigen Blood (08/13/2024 5:44 AM MANAGER MAC) [facility] HIV 1/2 ab + p24 ag Nonreactive Nonreactive Comment:Nonreactive for HIV- 1 antigen and HIV-1/HIV-2 antibodies. No laboratory evidence of HIV infection. If acute HIV infection is suspected, consider testing for HIV-1 RNA. Current interpretive data was last revised on 22. Blood 08/13/2024 5:44 AM MANAGER MAC 08/13/2024 6:05 AM MANAGER MAC Anastasia Amaro MD LAB MICROBIOLOGY - GENERAL ORDERABLES Final Result Performing Organization Address [facility] [place] [address] * RPR Blood (08/13/2024 5:44 AM MANAGER MAC) [facility] RPR Nonreactive Nonreactive Blood 08/13/2024 5:44 AM MANAGER MAC 08/13/2024 6:05 AM MANAGER MAC Anastasia Amaro MD LAB MICROBIOLOGY - GENERAL ORDERABLES Final Result Performing Organization Address [facility] [place] [address] * (ABNORMAL) CBC without differential (08/13/2024 5:44 AM MANAGER MAC) [facility] WBC 12.4(H) 3.8 - 9.9 K/cumm Hgb 11.8(L) 11.9 - 15.5 g/dL [facility] Hct 34.4(L) 35.6 - 45.5 % [facility] Plt 295 150 - 400 K/cumm [facility] MPV 10.3 9.1 - 12.3 fL [facility] RBC 3.93 3.90 - 5.20 M/cumm [facility] MCV 87.5 81.3 - 96.4 fL [facility] MCH 30.0 27.1 - 33.3 pg [facility] MCHC 34.3 32.3 - 35.7 g/dL [facility] RDW CV 13.6 11.1 - 14.9 % [facility] RDW SD 43.5 35.7 - 48.1 fL [facility] NRBC abs 0.00 0.00 - 0.01 K/cumm [facility] Blood 08/13/2024 5:44 AM MANAGER MAC 08/13/2024 6:05 AM MANAGER MAC Anastasia Amaro MD LAB BLOOD ORDERABLES Final Result Performing Organization Address City/[facility]/ZIP Co de Phone Number [facility] [place] [address] * (ABNORMAL) Type and screen (08/13/2024 5:44 AM MANAGER MAC) Pathologist [facility] ABO Rh O Negative Abiodun, indirect Positive(A) [facility] Blood 08/13/2024 5:44 AM MANAGER MAC 08/13/2024 6:19 AM MANAGER MAC Narrative [facility] - 08/13/2024 7:42 AM MANAGER MAC Has the patient had Daratumumab or Isatuximab in the past 6 months?->Unknown Anastasia Amaro MD LAB BLOOD BANK TEST ORDERA BLES Final Result [facility] [place] [address] [place] [address] * (ABNORMAL) Comprehensive metabolic panel (08/13/2024 5:44 AM MANAGER MAC) Sodium 137 135 - 145 mmol/L Potassium, pl 3.7 3.3 - 4.9 mmol/L [facility] Chloride 104 97 - 110 mmol/L [facility] CO2 22 22 - 32 mmol/L [facility] Anion gap 11 2 - 15 mmol/L [facility] BUN 8 6 - 25 mg/dL [facility] Creatinine 0.49(L) 0.60 - 1.10 mg/dL [facility] Glucose 74 70 - 199 mg/dL [facility] Comment: Interpretive Data Fasting glucose >/= 126 [...] 9.4 8.5 - 10.3 mg/dL [facility] Bilirubin, total 0.3 0.1 - 1.2 mg/dL [facility] Protein, pl 6.5 6.5 - 8.5 g/dL [facility] Albumin 3.3(L) 3.5 - 5.0 g/dL [facility] Alk phos 85 40 - 130 Units/L [facility] ALT 21 7 - 45 Units/L [facility] AST 19 10 - 45 Units/L [facility] Blood 08/13/2024 5:44 AM MANAGER MAC 08/13/2024 6:05 AM MANAGER MAC us Anastasia Amaro MD LAB BLOOD ORDERABLES Final Result [facility] [place] [address] * Hepatitis C antibody Blood (05/20/2024 2:47 [...] MICROBIOLOGY - GENERAL ORDERABLES Final Result [facility] [id number] [address] [place] [address] from Last 3 Months or Most Recently Relevant to Health Maintenance Insurance [place] Advance Directives For more information, please contact: [phone] * Full Code (Latest Code Status on File) Date Activated Date Inactivated Comments 09/19/2024 4:34 PM 09/22/2024 3:32 PM * Full Code Date Activated Date Inactivated Comments 07/29/2024 3:05 AM 09/19/2024 4:34 PM Care Teams Manager Solution Relationship Specialty Start Date End Date No, Physician PCP - General 02/25/24
--- OUTSIDE RECORDS SUMMARY | 2024-11-13 20:46 | XMS_ITS | Clinical Summary ---
Author Organization [facility] Address [address] [place] [address] Care Team Providers Care Cycle Liaison Name Role Phone No, Physician Primary Care Provider [phone] Allergies No known active allergies Medications acetaminophen [...] Blood pressures well controlled on N120XL and [id number]. CBC/CMP WNL, UPC 0.1. Enrolled in remote [...] # Disposition: Follow up task sent to [facility] scheduling pool for appointments in 2 and 6 weeks. They are enrolled in remote blood pressure monitoring for their BP check. Desires discharge home today. Service Coverage These phones are service phones and carried 27/04 in house: R1 (first call) [phone] R1 alt (second call) [phone] R4 (Chief) [phone] 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 08/29/2024 [...] Blood pressures well controlled on N120XL and [id number]. Magnesium for seizure prophylaxis. #sinus tachycardia, intermittent: [...] found out that that would be in [place] he used an expletive to express that they would not be doing that Resolved Problems Problem Noted Date Diagnosed Date Resolved Date Abdominal pain 07/06/2012 04/15/2024 Encounters Date Type Department Care Team Description 11/04/2024 Telephone Psychiatry James Rojas MD Reminder of Appointment 11/03/2024 4:37 PM [facility] - 11/03/2024 11:59 PM [facility] Hospital Encounter [facility] [address] [place] [address] Encounter for routine follow-up Discharge Disposition: Discharge to home or self care 11/03/2024 1:40 PM [facility] Office Visit [facility] Maternal- Medicine [address] [place] [address] Floor [address] [place] [phone] Encounter for routine follow-up (Primary Dx) 10/28/2024 [place] [phone] Nancy Noel, [facility] Brief Therapeutic Intervention 10/20/2024 1:00 PM [facility] Office Visit [facility] Maternal- Medicine [address] [place] [address] Floor [address] [place] [phone] care following delivery (Primary Dx) 10/20/2024 Orders Only [facility] Maternal- Medicine [address] [place] [address] Floor [address] [place] [phone] Gracy Hicks, ic designer custom care following delivery (Primary Dx); Preeclampsia, unspecified trimester 10/18/2024 1:00 PM [facility] [place] [address] Nancy Noel, [employer]PUT[employer] PUBL[employer] Generalized anxiety disorder (Primary Dx) 10/16/2024 9:30 AM [facility] - 10/16/2024 2:10 PM [facility] Emergency [facility] Emergency Department [address] [place] [address] Satnam Nair MD Secondary hypertension (Primary Dx) Discharge Disposition: Discharge to home or self care 10/07/2024 Telephone [facility] [place] [address] Nancy Noel, [facility] Initial Contact 09/30/2024 Encounter [facility] [address] [place] [address] 09/25/2024 Encounter [facility] [address] [place] [address] 09/19/2024 1:57 PM [facility] Anesthesia Event [address] [phone] Sidra Ann MD Bailey, Cody Allen, MD 09/19/2024 1:30 PM [facility] - 09/19/2024 4:05 PM [facility] Surgery [address] [phone] Josefina Peter MD SECTION 09/15/2024 9:00 AM [facility] Ancillary Procedure [address] [address] 09/08/2024 10:00 AM [facility] Ancillary Procedure [address] [address] 08/24/2024 12:30 PM [facility] Ancillary Procedure [address] [address] 08/16/2024 8:15 AM [facility] Ancillary Procedure [address] [address] 07/29/2024 2:42 AM CDT - 09/22/2024 11:26 AM [facility] Hospital Encounter [address] [place] [address] Anastasia Amaro MD Bligard, MD Sumanth Fitzgerald, [...] Grandmother Cancer Neg 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 Never 07/29/2024 Do you belong to any clubs o r organizations such as druze groups, unions, fraternal or athletic groups, or [...] 07/28/2024 [facility] - [...] things needed for daily living? No 07/29/2024 Ravalli Depression Scale Answer Date Recorded Ravalli Depression Scale Total 21 10/20/2024 The thought [...] were you homeless or living in a fpc (including now)? No 07/29/2024 Personal Safety Answer Date Recorded Have you ever been in or are you currently in a harmful physical or emotional relationship or is someone making you feel afraid or unsafe? Denies 10/16/2024 Comments No Sex and Gender Information Value Date Recorded Sex Assigned at Not on file Legal Sex Female 2:19 AM [facility] Gender Identity Not on file Sexual Orientation [...] Regino Pettit Masood Lea MD Complications:None Delivery Location:[facility] Main C ampus ([facility] L AND D PROCEDURE) 2023 34w 0d 0h 03m 0h 03m 1.92 kg (4 lb 3.7 oz) M C-Sec tion Combin ed Spinal /Epidu ral N Livin g 8 9 Morales Lau Masood Lea MD Complications:None Delivery Location:[facility] Main C ampus ([facility] L AND D PROCEDURE) Last Filed Vital Signs Vital Sign Reading Time Taken Comments Blood Pressure 120/81 11/03/2024 1:53 PM [facility] Pulse 116 11/03/2024 1:53 PM [facility] Temperature 35.9 C (96.7 F) 10/16/2024 9:28 AM [facility] Respiratory Rate 18 10/16/2024 11:0 0 AM [facility] Oxygen Saturation 97% 11/03/2024 1:53 PM [facility] Inhaled Oxygen Concentration - - Weight 111.5 kg (245 lb 12.8 oz) 11/03/2024 1:53 PM [facility] Height 167.6 cm (5' 6 ) 10/16/2024 9:28 AM [facility] Body Mass Index 39.67 10/16/2024 9:28 AM [facility] Plan of Treatment Health Maintenance Due Date [...] HIGH RISK HPV Routine 11/03/2024 4:37 PM [facility] Encounter for routine follow-up THINPREP PROCESSING (MOLECULAR COMPONENT) Routine 11/03/2024 4:37 PM [facility] Encounter for routine follow-up URINALYSIS, MICROSCOPIC ONLY STAT 10/16/2024 11:21 AM [facility] URINE CULTURE STAT 10/16/2024 11:21 AM [facility] URINALYSIS AND REFLEX TO MICROSCOPIC AND CULTURE STAT 10/16/2024 11:21 AM [facility] ECG 12-LEAD STAT 10/16/2024 10:36 AM [facility] EGFR Add On 10/16/2024 9:47 AM [facility] DIFFERENTIAL AUTO Add On 10/16/2024 9:4 7 AM [facility] COMPREHENSIVE METABOLIC PANEL Add-On 10/16/2024 9:47 AM [facility] CBC WITH AUTO DIFFERENTIAL Add-On 10/16/2024 9:47 AM [facility] BLEED SCREEN Timed 09/20/2024 4: 48 AM [facility] ABO/RH Timed 09/20/2024 4:48 AM [facility] CBC WITHOUT DIFFERENTIAL Routine 09/20/2024 4:48 AM [facility] RH IMMUNE GLOBULIN EVAL Timed 09/20/2024 4:48 AM [facility] SURGICAL PATHOLOGY Routine 09/19/2024 4: 06 PM [facility] ANESTHESIA EPIDURAL BLOCK Routine 09/19/2024 2:45 PM [facility] SECTION 09/19/2024 1:56 PM [facility] TIUP Case Notes PreE w/ SF and Multiple gestation EGFR Timed 09/18/2024 6:21 AM [facility] COMPREHENSIVE METABOLIC PANEL Timed 09/18/2024 6:21 AM [facility] CBC WITHOUT DIFFERENTIAL Timed 09/18/2024 6:21 AM [facility] TYPE AND SCREEN Timed 09/18/2024 6:21 AM [facility] NONSTRESS TEST Routine 09/17/2024 2:58 PM [facility] Preeclampsia, unspecified trimester 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 US OB FOLLOW UP IP Routine 09/15/2024 1:08 PM [facility] EGFR Timed 09/15/2024 6:17 AM [facility] COMPREHENSIVE METABOLIC PANEL Timed 09/15/2024 6:17 AM [facility] CBC WITHOUT DIFFERENTIAL Timed 09/15/2024 6:17 AM [facility] TYPE AND SCREEN Timed 09/15/2024 6:17 AM [facility] NONSTRESS TEST Routine 09/13/2024 5:10 PM [facility] Preeclampsia, unspecified trimester 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 EGFR Timed 09/12/2024 6:35 AM [facility] COMPREHENSIVE METABOLIC PANEL Timed 09/12/2024 6:35 AM [facility] CBC WITHOUT DIFFERENTIAL Timed 09/12/2024 6:35 AM [facility] TYPE AND SCREEN Timed 09/12/2024 6:35 AM [facility] EGFR Timed 09/09/2024 6:24 AM [facility] COMPREHENSIVE METABOLIC PANEL Timed 09/09/2024 6:24 AM [facility] CBC WITHOUT DIFFERENTIAL Timed 09/09/2024 6:24 AM [facility] TYPE AND SCREEN Timed 09/09/2024 6:24 AM [facility] US OB LIMITED IP Routine 09/08/2024 10:29 AM [facility] NONSTRESS TEST Routine 09/06/2024 8:38 PM [facility] Preeclampsia, unspecified trimester 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 EGFR Timed 09/06/2024 4:31 AM [facility] COMPREHENSIVE METABOLIC PANEL Timed 09/06/2024 4:31 AM [facility] CBC WITHOUT DIFFERENTIAL Timed 09/06/2024 4:31 AM [facility] TYPE AND SCREEN Timed 09/06/2024 4:31 AM [facility] GROUP B STREPTOCOCCUS CULTURE Routine 09/03/2024 10:29 AM [facility] EGFR Timed 09/03/2024 5:26 AM [facility] COMPREHENSIVE METABOLIC PANEL Timed 09/03/2024 5:26 AM [facility] CBC WITHOUT DIFFERENTIAL Timed 09/03/2024 5:26 AM [facility] TYPE AND SCREEN Timed 09/03/2024 5:26 AM [facility] ECG 12-LEAD Routine 09/02/2024 4:33 PM [facility] EGFR Timed 08/31/2024 6:20 AM [facility] COMPREHENSIVE METABOLIC PANEL Timed 08/31/2024 6:20 AM [facility] CBC WITHOUT DIFFERENTIAL Timed 08/31/2024 6:20 AM [facility] TYPE AND SCREEN Timed 08/31/2024 6:20 AM [facility] NONSTRESS TEST Routine 08/29/2024 2:32 PM [facility] Preeclampsia, unspecified trimester 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 NONSTRESS TEST Routine 08/28/2024 7:47 PM [facility] Preeclampsia, unspecified trimester 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 EGFR Timed 08/28/2024 6:00 AM [facility] COMPREHENSIVE METABOLIC PANEL Timed 08/28/2024 6:00 AM [facility] CBC WITHOUT DIFFERENTIAL Timed 08/28/2024 6:00 AM [facility] TYPE AND SCREEN Timed 08/28/2024 6:00 AM [facility] EGFR Timed 08/25/2024 6:19 AM [facility] COMPREHENSIVE METABOLIC PANEL Timed 08/25/2024 6:19 AM [facility] CBC WITHOUT DIFFERENTIAL Timed 08/25/2024 6:19 AM [facility] TYPE AND SCREEN Timed 08/25/2024 6:19 AM [facility] US OB FOLLOW UP IP Routine 08/24/2024 9:37 AM E[facility] EGFR Timed 08/22/2024 6:02 AM [facility]AN COMPREHENSIVE METABOLIC PANEL Timed 08/22/2024 6:02 AM [facility] CBC WITHOUT DIFFERENTIAL Timed 08/22/2024 6:02 AM E[facility]AN TYPE AND SCREEN Timed 08/22/2024 6:02 AM [facility] SERVICES [facility]AN EGFR Timed 08/19/2024 6:25 AM [facility]AN COMPREHENSIVE METABOLIC PANEL Timed 08/19/2024 6:25 AM [facility] CBC WITHOUT DIFFERENTIAL Timed 08/19/2024 6:25 AM [facility] TYPE AND SCREEN Timed 08/19/2024 6:25 AM [facility] US OB LIMITED IP Routine 08/16/2024 8:35 AM [facility] ANTIBODY IDENTIFICATION Routine 08/16/2024 7:34 AM [facility] EGFR Timed 08/16/2024 6:15 AM [facility] THYROID FUNCTION CASCADE Routine 08/16/2024 6:15 AM [facility]AN COMPREHENSIVE METABOLIC PANEL Timed 08/16/2024 6:15 AM [facility] CBC WITHOUT DIFFERENTIAL Timed 08/16/2024 6:15 AM [facility] TYPE AND SCREEN Timed 08/16/2024 6:15 AM [facility] POCT GLUCOSE DEVICE Routine 08/14/2024 3 :06 PM [facility] ECG 12-LEAD Routine 08/13/2024 9:02 AM [facility] ANTIBODY IDENTIFICATION Routine 08/13/2024 7:42 AM [facility]AN EGFR Timed 08/13/2024 5:44 AM [facility]AN COMPREHENSIVE METABOLIC PANEL Timed 08/13/2024 5:44 AM [facility]AN CBC WITHOUT DIFFERENTIAL Timed 08/13/2024 5:44 AM [facility]AN TYPE AND SCREEN Timed 08/13/2024 5:44 AM [facility]AN RPR Routine 08/13/2024 5:44 AM [facility] HIV 1/2 ANTIBODY PLUS P24 ANTIGEN Routine 08/13/2024 5:44 AM [facility] HEPATITIS C ANTIBODY Routine 05/20/2024 2:47 PM CDT Encounter for supervision of normal first in first trimester 11 weeks gestation of from Last 3 Months or Most Recently Relevant to Health Maintenance Results * ThinPrep processing (Molecular component) (11/03/2024 4:37 PM [facility]) ThinPrep processing (Molecular component) Specimen received for processing. [facility] Endocervical 11/03/2024 4:37 PM [facility]AN 11/07/2024 8:41 AM [facility] Jada Ngo NP LAB BODY FLUIDS AND STOOLS ORDERABLES Final Result BIA [facility] Department [place] [address] [facility] * Pap with reflex to High Risk HPV and Genotyping (Cytology Component) (11/03/2024 4:37 PM [facility] SERVICES [facility]AN) Thin prep (Pap test) 11/03/2024 4:37 PM [facility]AN 11/03/2024 5:54 PM [facility]AN Narrative PATHOLOGY [facility] - 11/11/2024 3:38 PM [facility]AN EPIC results best viewed via link to PDF [facility] [place] [address] Note to Patients: This report may contain [...] Gender: Bhumi : 1995 (Age: 29) Address: [address] [place] [phone] Hospital #: [id number] Service: [employer] Location: Patient Type: [facility] SPECIMEN Taken: 11/03/2024 Received: 11/03/2024 Accessioned: [...] clinical information and biopsy results as indicated. [facility] Clinical Laboratory Improvement Amendments (CLIA) mandate that cytologic and histologic results be correlated for laboratory food quality technician & improvement standards. FOR ALL HIGH-GRADE [...] determined by the Surgical Pathology Department at [facility] as part of an ongoing quality worker program and in compliance with federally mandated [...] determined by the Surgical Pathology Department of [facility]. It has not been cleared or approved by the U. S. Food and Drug Administration. Jada Ngo NP LAB CYTOLOGY ORDERA BLES Final Result PATHOLOGY [facility] 3rd Floor [place], [place] [phone] * (ABNORMAL) Urinalysis reflex to microscopic and culture Urine (10/16/2024 11:21 AM [facility]MENT SERVICES DEAN) Color, ur Yellow Yellow Clarity, ur Clear [...] tendency for uric acid stone formation. Source: [facility] Current Interpretive Data was last revised on [...] ([place]) Leukocyte esterase, ur 3+(A) Negative BIA [facility] ([place]) UA reflex comment Reflex to microscopic UA will be performed. BIA [facility] ([place]) Urine 10/16/2024 11:2 1 AM [facility] 10/16/2024 11:23 AM [facility] Satnam Nair MD LAB MICROBIOLOGY - GENERAL O RDERABLES Final Result Performing Organization Address [facility] Co de Phone Number BIA [facility] ([place]) 1 [facility] [employer] [address] * (ABNORMAL) Urinalysis, microscopic only (10/16/2024 11:21 AM [facility] DEAN) WBC, ur 11-20(A) 0 - 5 /HPF RBC, ur >50(A) 0 - 2 /HPF [facility] ([place]) Epithelial cells, squamous, ur 1-5 0 - 5 /HPF BIA [facility] ([place]) Bacteria, ur Trace(A) [facility] ([place]) Mucous, ur Present(A) [facility] A ([place]) Culture Reflex Comment Reflex to urine culture will be performed. BIA [facility] ([place]) Urine 10/16/2024 11:2 1 AM [facility]AN 10/16/2024 11:23 AM [facility]AN Satnam Nair MD LAB URINE ORDERABLES Final R esult Performing Organization Address City/[facility]/ZIP Co de Phone Number [facility]UKIP [facility] ([place]) 1 [facility] [place] [address] * Urine culture Urine (10/16/2024 11:21 AM E[facility]LLMENT SERVICES DEAN) Report Final Report: Less than 100,000 colonies/mL (clinically insignificant growth based on current clinical standards) Comment:Testing performed by : [facility], [address], [place]., [address] Organism (CLINICALLY INSIGNIFICANT GROWTH BIA [facility] ([place]) Urine 10/16/2024 11:2 1 AM [facility] 10/16/2024 2:00 PM [facility]AN Narrative BIA [facility] ([place]) - 10/17/2024 3:36 PM [facility]AN Urine culture reflexed based upon urinalysis results. Testing performed by [facility] Microbiology Laboratory ([phone]) Satnam Nair MD LAB MICROBIOLOGY - GENERAL O RDERABLES Final Result BIA [facility]) 1 [facility] Department [place] [address] * ECG 12 lead (10/16/2024 10:36 AM [facility]AN) 10/16/2024 10:3 6 AM [facility]AN Narrative [facility] - 10/17/2024 8:41 AM E[facility]LLMENT SERVICES DEAN Vent Rate: 65 bpm RR Interval: 922 msec MN Interval: 147 msec QRS Duration: 101 msec QT Interval: 408 msec QTC Interval: 419 msec P-R-T [place]ford: 54 - 21 - 47 degrees IMPRESSION: SINUS RHYTHM NORMAL ECG Electronically Signed By: Dallas Ahn MD Satnam Nair MD ECG ORDERABLES Final Result Performing Organization Address City/[facility]/ZIP Co de Phone Number [employer] [facility] * eGFR (10/16/2024 9:47 AM E[facility]MENT SERVICES [facility]AN) eGFR >90 >=60 mL/min/1. 73 m2 Comment: [...] last reviewed 2021. Blood 10/16/2024 9:47 AM [facility]AN 10/16/2024 10:32 AM [facility]AN Satnam Nair MD LAB BLOOD ORDERABLES Final R esult BIA [facility] ([place]) 1 [facility] Department [place] [address] * Differential, auto (10/16/2024 9:47 AM [facility]) Neutrophil abs 2.8 1.5 - 6.5 K/cumm Imm gran abs 0.0 0.0 - 0.1 K/cumm [facility] ([place]) Lymphocyte abs 1.3 0.8 - 3.3 K/cumm [facility] ([place]) Monocyte abs 0.3 0.2 - 0.8 K/cumm [facility] ([place]) Eosinophil abs 0.1 0.0 - 0.5 K/cumm [facility] ([place]) Basophil abs 0.0 0.0 - 0.1 K/cumm [...] revised on 2018. Blood 10/16/2024 9:47 AM [facility] 10/16/2024 10:32 AM [facility] Satnam Nair MD LAB BLOOD ORDERABLES Final R esult [facility] ([place]) 1 [facility] Department [place] [address] * CBC with auto differential (10/16/2024 9:47 AM [facility]) WBC 4.5 3.8 - 9.9 K/cumm Hgb [...] [facility] ([place]) Blood 10/16/2024 9:47 AM [facility]AN 10/16/2024 10:32 AM [facility]AN Satnam Nair MD LAB BLOOD ORDERABLES Final R esult BIA [facility] ([place]) 1 [facility] Department [place] [address] * Comprehensive metabolic panel (10/16/2024 9:47 AM [facility]) Sodium 140 135 - 145 mmol/L Potassium, [...] [facility] ([place]) Blood 10/16/2024 9:47 AM [facility]AN 10/16/2024 10:32 AM [facility]AN us Satnam Nair MD LAB BLOOD ORDERABLES Final R esult Performing Organization Address City/[facility]/ZIP Co de Phone Number [facility] ([place]) 1 [facility] Department [place] [address] * Rh Immune Globulin Eval (09/20/2024 4:48 AM [facility]) RhIg Administration 1 vial of Rh Immune Globulin (300 mcg dose) RhIg Eligible Yes, eligible [facility] Blood 09/20/2024 4:48 AM [facility]AN 09/20/2024 5:03 AM [facility] Narrative [facility] - 09/20/2024 5:36 AM [facility]AN Number of weeks ?->20 weeks or greater antibody screen result:->Negative Rhogam given?->Given Date Given?->08/01/24 Number of vials requested:->1 us Sara Eng MD LAB BLOOD BANK TEST ORDERABL ES Final Result Performing Organization Address [facility] de Phone Number [facility] Department [place] [address] * Bleed Screen (09/20/2024 4:48 AM [facility]) Bleed Screen Negative Blood 09/20/2024 4:48 AM [facility] 09/20/2024 5:03 AM [facility] Rey Quinoenz MD LAB BLOOD BANK TEST ORDERABLE S Final Result Performing Organization Address [facility] Co de Phone Number [facility] Department [place] [address] * ABO/Rh (09/20/2024 4:48 AM [facility]) ABO Rh O Negative Blood 09/20/2024 4:48 AM [facility] 09/20/2024 5:03 AM [facility] us Rey Quinonez MD LAB BLOOD BANK TEST ORDERABLE S Final Result Performing Organization Address City/[facility]/ZIP Co de Phone Number [facility] [place] [address] * (ABNORMAL) CBC without differential (09/20/2024 4:48 AM [facility] SERVICES [facility]AN) Pathologist [facility] WBC 10.3(H) 3.8 - 9.9 K/cumm Hgb 9.7(L) 11.9 - 15.5 g/dL [facility] Hct 28.4(L) 35.6 - 45.5 % [facility] Plt 230 150 - 400 K/cumm [facility] MPV 10.8 9.1 - 12.[address] [facility] RBC 3.22(L) 3.90 - 5.20 M/cumm [facility] MCV 88.2 81.3 - 96.[address] [facility] MCH 30.1 27.1 - 33.[address] [facility] MCHC 34.2 32.3 - 35.7 g/dL [facility] RDW CV 13.9 11.1 - 14.9 % [facility] RDW SD 44.6 35.7 - 48.[address] [facility] NRBC abs 0.00 0.00 - 0.01 K/cumm [facility] Blood 09/20/2024 4:48 AM [facility] 09/20/2024 5:11 AM [facility]AN us Sara Eng MD LAB BLOOD ORDERABLES Final R esult Performing Organization Address City/[facility]/ZIP Co de Phone Number [facility] [place] [address] * Surgical pathology (09/19/2024 4:06 PM [facility]AN) Tissue (Placenta) 09/19/2024 4:06 PM [facility] 09/20/2024 8:37 AM [facility] Narrative PATHOLOGY [facility] - 09/26/2024 2:16 PM [facility]MENT [facility]AN EPIC results best viewed via link to PDF [facility] [place] [address] Note to Patients: This report may contain [...] Gender: F : 1995 (Age: 29) Address: [address] [place] [address] Hospital #: [id number] Taken:09/19/2024 Received:09/20/2024 Reported: 09/26/2024 Patient Type: [facility] Inpatient Service: Obstetrics Location: [place] [address] Physician(s): MD Sara Parker M.D. Diagnosis: Placenta, delivery - 662 grams diamnionic, monochorionic, pre-term twin placenta - Acute atherosis - Accelerated villous maturation -Trivascular cords with no histopathologic abnormalities community health/09/26/2024 14:16 By this signature, I attest [...] discrete lesions or infarcts are grossly identified. Supervisor [employer] Managing sections are submitted: A1 = arbitrarily assigned twin A, cord and membranes; A2-4 = twin A, outside energy sales representatives parenchyma; A5 = common membrane and T-zone; A6 = arbitrarily assigned twin B, cord and membranes; A7-9 = twin B, outside energy sales representatives parenchyma. Jar 3. sxv/09/21/2024 11:11 PA(s): Catalino Hernandez MS, PA ([facility])CM By this signature, I attest that the above diagnosis is based upon my personal examination of the slides(and/or other material). Addenda/Procedures The performance characteristics of some immunohistochemical stains, fluorescence in-situ hybridization tests and immunophenotyping by flow cytometry cited in this report (if any) were determined by the Surgical Pathology and Flow Cytometry Departments at [facility] as part of an ongoing quality worker program and in compliance with federally mandated [...] Surgical Pathology and Flow Cytometry Departments of [facility]. It has not been cleared or approved by the U. S. Food and Drug Administration. IMAGES AND SCANNED DOCUMENTS, IF INCLUDED, ONLY VIEWABLE IN PDF VERSION OF REPORT us Sara Eng MD LAB PATHOLOGY ORDERABLES Fin al Result PATHOLOGY [facility] 3rd Floor [place], [place] [phone] * Epidural Block (09/19/2024 2:45 PM [facility]) Narrative Abena Denton MD - 09/19/2024 2:45 PM [facility] Abena Denton MD 09/19/2024 2:50 PM Epidural [...] Final Result * eGFR (09/18/2024 6:21 AM [facility]) eGFR >90 >=60 mL/min/1. 73 m2 Comment: [...] last reviewed 2021. Blood 09/18/2024 6:21 AM [employer] [employer] [facility] 09/18/2024 6:32 AM [employer] [employer] [facility] us Anastasia Amaro MD LAB BLOOD ORDERABLES Final Result [facility] Department [place] [address] * (ABNORMAL) CBC without differential (09/18/2024 6:21 AM [facility] [employer] [facility]) [facility] WBC 10.0(H) 3.8 - 9.9 K/cumm Hgb 11.6(L) 11.9 - 15.5 g/dL [facility] Hct 34.0(L) 35.6 - 45.5 % [facility] Plt 250 150 - 400 K/cumm [facility] MPV 11.0 9.1 - 12.[address] [facility] RBC 3.92 3.90 - 5.20 M/cumm [facility] MCV 86.7 81.3 - 96.[address] [facility] MCH 29.6 27.1 - 33.[address] [facility] MCHC 34.1 32.3 - 35.7 g/dL [facility] RDW CV 13.7 11.1 - 14.9 % [facility] RDW SD 43.1 35.7 - 48.[address] [facility] NRBC abs 0.00 0.00 - 0.01 K/cumm [facility] Blood 09/18/2024 6:21 AM [facility] 09/18/2024 6:32 AM [facility] Anastasia Amaro MD LAB BLOOD ORDERABLES Final Result Performing Organization Address City/[facility] Co de Phone Number [facility] Department [place] [address] * Type and screen (09/18/2024 6:21 AM [facility]) [facility] Abiodun, indirect Negative ABO Rh O Negative [facility] Blood 09/18/2024 6:21 AM [facility] 09/18/2024 6:35 AM [facility] Narrative [facility] - 09/18/2024 7:42 AM [facility] Has the patient had Daratumumab or Isatuximab in the past 6 months?->Unknown Anastasia Amaro MD LAB BLOOD BANK TEST ORDERA BLES Final Result Performing Organization Address [facility] Co de Phone Number [facility] Department [place] [address] * (ABNORMAL) Comprehensive metabolic panel (09/18/2024 6:21 AM [facility]) [facility] Sodium 134(L) 135 - 145 mmol/L Potassium, pl 3.8 3.3 - 4.9 mmol/L [facility] Chloride 105 97 - 110 mmol/L [facility] CO2 23 22 - 32 mmol/L [facility] Anion gap 6 2 - 15 mmol/L [facility] BUN 9 6 - 25 mg/dL [facility] Creatinine 0.69 0.60 - 1.10 mg/dL [facility] Glucose 68(L) 70 - 199 mg/dL [facility] Comment: Interpretive Data Fasting glucose [...] Calcium 9.0 8.5 - 10.3 mg/dL [facility] Bilirubin, total 0.2 0.1 - 1.2 mg/dL [facility] Protein, pl 6.3(L) 6.5 - 8.5 g/dL [facility] Albumin 3.0(L) 3.5 - 5.0 g/dL [facility] Alk phos 125 40 - 130 Units/L [facility] ALT 14 7 - 45 Units/L [facility] AST 16 10 - 45 Units/L [facility] Blood 09/18/2024 6:21 AM [facility] 09/18/2024 6:32 AM [facility] Anastasia Amaro MD LAB BLOOD ORDERABLES Final Result [facility] Department [place] [address] * nonstress test (09/17/2024 2:58 PM [facility] [employer] [facility]) Narrative Sandra Christy MD - 09/17/2024 2:58 PM [facility] Joellen Schilling MD 09/17/2024 4:04 PM nonstress test Date/Time: 09/17/2024 2:58 PM Performed by: Maureen Calix MD Authorized by: Ana M Rogers MD us Ana M Rogers MD OB GYNE ORDERABLES Fi nal Result * US Ob Follow Up (09/15/2024 1:08 PM [facility]) Fetus# Fetus1 VIEWPOINT Estimated Weight 1,709 g&grams VIEWPOINT Placenta Details anterior VIEWPOINT Presentation Vertex; Maternal right- low VIEWPOINT Fetus# Fetus2 VIEWPOINT Estimated Weight 2,585 g&grams VIEWPOINT Placenta Details anterior VIEWPOINT Presentation Vertex; Maternal left- high VIEWPOINT Anatomical Region Laterality Modality Abdomen N/A Ultrasound 09/15/2024 1:08 PM [facility] Impressions 09/15/2024 2:24 PM [facility] Diamniotic (presumed MCDA) TIUP at 33w33d who is admitted for preE with severe features who presents for growth US was previously determined to be monochorionic by the [facility] MFM practice. A thin dividing membrane [...] monochorionic by the [facility] MFMpractice. A thin dividing membrane and [...] R esult * eGFR (09/15/2024 6:17 AM [facility] [employer] [facility]) eGFR >90 >=60 mL/min/1. 73 m2 Comment: [...] last reviewed 2021. Blood 09/15/2024 6:17 AM [employer] [employer] [facility] 09/15/2024 6:31 AM [employer] [employer] [facility] us Anastasia Amaro MD LAB BLOOD ORDERABLES Final Result [facility] Department [place] [address] * (ABNORMAL) CBC without differential (09/15/2024 6:17 AM [facility] [employer] [facility]) WBC 10.1(H) 3.8 - 9.9 K/cumm Hgb 11.7(L) 11.9 - 15.5 g/dL [facility] Hct 34.6(L) 35.6 - 45.5 % [facility] Plt 253 150 - 400 K/cumm [facility] MPV 11.2 9.1 - 12.[address] [facility] RBC 3.94 3.90 - 5.20 M/cumm [facility] MCV 87.8 81.3 - 96.[address] [facility] MCH 29.7 27.1 - 33.[address] [facility] MCHC 33.8 32.3 - 35.7 g/dL [facility] RDW CV 13.8 11.1 - 14.9 % [facility] RDW SD 44.1 35.7 - 48.[address] [facility] NRBC abs 0.00 0.00 - 0.01 K/cumm [facility] Blood 09/15/2024 6:17 AM [facility] 09/15/2024 6:31 AM [facility] Anastasia Amaro MD LAB BLOOD ORDERABLES Final Result Performing Organization Address [facility] Co de Phone Number [facility] One [facility] [place] [address] * Type and screen (09/15/2024 6:17 AM [employer] [facility]) [facility] Abiodun, indirect Negative Comment:Patient has previous antibody history ABO Rh O Negative [facility] Blood 09/15/2024 6:17 AM [facility] 09/15/2024 6:30 AM [facility] Narrative [facility] - 09/15/2024 7:57 AM [facility] [employer] [facility] Has the patient had Daratumumab or Isatuximab in the past 6 months?->Unknown Anastasia Amaro MD LAB BLOOD BANK TEST ORDERA BLES Final Result Performing Organization Address [facility] de Phone Number [facility] Department [place] [address] * (ABNORMAL) Comprehensive metabolic panel (09/15/2024 6:17 AM [facility] [facility]) [facility] Sodium 139 135 - 145 mmol/L Potassium, pl 3.5 3.3 - 4.9 mmol/L [facility] Chloride 106 97 - 110 mmol/L [facility] CO2 21(L) 22 - 32 mmol/L [facility] Anion gap 12 2 - 15 mmol/L [facility] BUN 8 6 - 25 mg/dL [facility] Creatinine 0.66 0.60 - 1.10 mg/dL [facility] Glucose 106 70 - 199 mg/dL [facility] Comment: Interpretive Data Fasting glucose [...] 2022. Calcium 9.0 8.5 - 10.3 mg/dL [facility] Bilirubin, total <0.2 0.1 - 1.2 mg/dL [facility] Protein, pl 6.4(L) 6.5 - 8.5 g/dL [facility] Albumin 3.0(L) 3.5 - 5.0 g/dL [facility] Alk phos 124 40 - 130 Units/L [facility] ALT 19 7 - 45 Units/L [facility] AST 20 10 - 45 Units/L [facility] Blood 09/15/2024 6:17 AM [employer] [facility] 09/15/2024 6:31 AM [employer] [facility] us Anastasia Amaro MD LAB BLOOD ORDERABLES Final Result [facility] Department [place] [address] * nonstress test (09/13/2024 5:10 PM [employer] [employer] [facility]) Narrative Sandra Christy MD - 09/13/2024 5:10 PM [facility] BolaAnastasia Bay MD 09/13/2024 5:21 PM 27 [...] nal Result * eGFR (09/12/2024 6:35 AM [facility]) eGFR >90 >=60 mL/min/1. 73 m2 Comment: [...] last reviewed 2021. Blood 09/12/2024 6:35 AM [facility] 09/12/2024 6:51 AM [employer] [facility] us Anastasia Amaro MD LAB BLOOD ORDERABLES Final Result [facility] Department [place] [address] * (ABNORMAL) CBC without differential (09/12/2024 6:35 AM [facility] [employer] [facility]) WBC 10.0(H) 3.8 - 9.9 K/cumm Hgb 11.8(L) 11.9 - 15.5 g/dL [facility] Hct 35.3(L) 35.6 - 45.5 % [facility] Plt 226 150 - 400 K/cumm [facility] MPV 11.2 9.1 - 12.[address] [facility] RBC 3.97 3.90 - 5.20 M/cumm [facility] MCV 88.9 81.3 - 96.[address] [facility] MCH 29.7 27.1 - 33.[address] [facility] MCHC 33.4 32.3 - 35.7 g/dL [facility] RDW CV 13.8 11.1 - 14.9 % [facility] RDW SD 44.5 35.7 - 48.[address] [facility] NRBC abs 0.02(H) 0.00 - 0.01 K/cumm [facility] Blood 09/12/2024 6:35 AM [employer] [employer] [facility] 09/12/2024 6:52 AM [facility] Anastasia Amaro MD LAB BLOOD ORDERABLES Final Result Performing Organization Address [facility] de Phone Number [facility] Department [place] [address] * Type and screen (09/12/2024 6:35 AM [employer] [facility]) Pathologist [facility] ABO Rh O Negative Abiodun, indirect Negative [facility] Comment:Patient has previous antibody history Blood 09/12/2024 6:35 AM [employer] 09/12/2024 6:48 AM [facility] Narrative [facility] - 09/12/2024 7:49 AM [facility] Has the patient had Daratumumab or Isatuximab in the past 6 months?->Unknown Anastasia Amaro MD LAB BLOOD BANK TEST ORDERA BLES Final Result Performing Organization Address [facility] de Phone Number [facility] Department [place] [address] * (ABNORMAL) Comprehensive metabolic panel (09/12/2024 6:35 AM [facility] [facility]) [facility] Sodium 139 135 - 145 mmol/L Potassium, pl 3.8 3.3 - 4.9 mmol/L [facility] Chloride 107 97 - 110 mmol/L [facility] CO2 22 22 - 32 mmol/L [facility] Anion gap 10 2 - 15 mmol/L [facility] BUN 6 6 - 25 mg/dL [facility] Creatinine 0.64 0.60 - 1.10 mg/dL [facility] Glucose 69(L) 70 - 199 mg/dL [facility] Comment: Interpretive Data Fasting glucose [...] Calcium 8.8 8.5 - 10.3 mg/dL [facility] Bilirubin, total <0.2 0.1 - 1.2 mg/dL [facility] Protein, pl 6.4(L) 6.5 - 8.5 g/dL [facility] Albumin 3.1(L) 3.5 - 5.0 g/dL [facility] Alk phos 122 40 - 130 Units/L [facility] ALT 22 7 - 45 Units/L [facility] AST 23 10 - 45 Units/L [facility] Blood 09/12/2024 6:35 AM [facility] 09/12/2024 6:51 AM [facility] Anastasia Amaro MD LAB BLOOD ORDERABLES Final Result [facility] Department [place] [address] * eGFR (09/09/2024 6:24 AM [facility] [employer] [facility]) eGFR >90 >=60 mL/min/1. 73 m2 Comment: [...] last reviewed 2021. Blood 09/09/2024 6:24 AM [facility] 09/09/2024 6:52 AM [facility] Anastasia Amaro MD LAB BLOOD ORDERABLES Final Result Performing Organization Address [facility] Co de Phone Number [facility] [place] [address] * (ABNORMAL) CBC without differential (09/09/2024 6:24 AM [facility]) WBC 8.6 3.8 - 9.9 K/cumm Hgb 10.9(L) 11.9 - 15.5 g/dL [facility] Hct 33.1(L) 35.6 - 45.5 % [facility] Plt 239 150 - 400 K/cumm [facility] MPV 11.0 9.1 - 12.[address] [facility] RBC 3.77(L) 3.90 - 5.20 M/cumm [facility] MCV 87.8 81.3 - 96.[address] [facility] MCH 28.9 27.1 - 33.[address] [facility] MCHC 32.9 32.3 - 35.7 g/dL [facility] RDW CV 13.8 11.1 - 14.9 % [facility] RDW SD 43.8 35.7 - 48.[address] [facility] NRBC abs 0.00 0.00 - 0.01 K/cumm [facility] Blood 09/09/2024 6:24 AM [facility] 09/09/2024 6:52 AM [facility] Anastasia Amaro MD LAB BLOOD ORDERABLES Final Result Performing Organization Address [facility]/ZIP Co de Phone Number [facility] [place] [address] * Type and screen (09/09/2024 6:24 AM [employer] [facility]) Pathologist [facility] ABO Rh O Negative Abiodun, indirect Negative [facility] Comment:Patient has previous antibody history Blood 09/09/2024 6:24 AM [facility] 09/09/2024 7:19 AM [facility] Narrative [facility] - 09/09/2024 8:51 AM [facility] Has the patient had Daratumumab or Isatuximab in the past 6 months?->Unknown us Anastasia Amaro MD LAB BLOOD BANK TEST ORDERA BLES Final Result [facility] Department [place] [address] * (ABNORMAL) Comprehensive metabolic panel (09/09/2024 6:24 AM [facility] [facility]) Pathologist [facility] Sodium 141 135 - 145 mmol/L Potassium, pl 3.8 3.3 - 4.9 mmol/L [facility] Chloride 108 97 - 110 mmol/L [facility] CO2 22 22 - 32 mmol/L [facility] Anion gap 11 2 - 15 mmol/L [facility] BUN 8 6 - 25 mg/dL [facility] Creatinine 0.75 0.60 - 1.10 mg/dL [facility] Glucose 70 70 - 199 mg/dL [facility] Comment: Interpretive Data Fasting glucose [...] 8.9 8.5 - 10.3 mg/dL [facility] Bilirubin, total <0.2 0.1 - 1.2 mg/dL [facility] Protein, pl 6.2(L) 6.5 - 8.5 g/dL [facility] Albumin 3.2(L) 3.5 - 5.0 g/dL [facility] Alk phos 117 40 - 130 Units/L [facility] ALT 22 7 - 45 Units/L [facility] AST 23 10 - 45 Units/L [facility] Blood 09/09/2024 6:24 AM [employer] 09/09/2024 6:52 AM [facility] [employer] [facility] us Anastasia Amaro MD LAB BLOOD ORDERABLES Final Result [facility] Department [place] [address] * US Ob Limited (09/08/2024 10:29 AM [facility]) Fetus# Fetus1 VIEWPOINT Placenta Details anterior VIEWPOINT Presentation Vertex; Maternal right- low VIEWPOINT Fetus# Fetus2 VIEWPOINT Placenta Details anterior VIEWPOINT Presentation Vertex; Maternal left- high (presenting) VIEWPOINT Anatomical Region Laterality Modality Abdomen N/A Ultrasound 09/08/2024 10:2 9 AM [facility] Impressions 09/08/2024 11:25 AM [facility] 1. Mo/di twin IUP at 32w 3d. [...] esult * nonstress test (09/06/2024 8:38 PM [facility]) Narrative Anastasia Amaro MD - 09/06/2024 8:38 PM [facility] Pauline Simms MD 09/06/2024 8:41 PM Baby A FHR Baseline: 125 Variability: moderate Accelerations: absent Decelerations: absent in last part of tracing, was initially having small variable decels in monitoring Reactive: Yes Baby B FHR Baseline: 130 Variability: moderate Accelerations: present Decelerations: absent Reactive: Yes 29 y.o. at 32w1d a/f preeclampsia with SF On monitor [id number] Contractions: absent I have reviewed NST and instructed RN to take off monitor Pauline Simms MD us Ana M Rogers MD OB GYNE ORDERABLES Fi nal Result * eGFR (09/06/2024 4:31 AM [facility]) eGFR >90 >=60 mL/min/1. 73 m2 Comment: [...] last reviewed 2021. Blood 09/06/2024 4:31 AM [facility] 09/06/2024 4:53 AM [facility] us Anastasia Amaro MD LAB BLOOD ORDERABLES Final Result Performing Organization Address City/[facility]/ZIP Co de Phone Number [facility] [place] [address] * (ABNORMAL) CBC without differential (09/06/2024 4:31 AM [facility]) WBC 10.3(H) 3.8 - 9.9 K/cumm Hgb 11.7(L) 11.9 - 15.5 g/dL [facility] Hct 34.5(L) 35.6 - 45.5 % [facility] Plt 249 150 - 400 K/cumm [facility] MPV 11.1 9.1 - 12.[address] [facility] RBC 3.96 3.90 - 5.20 M/cumm [facility] MCV 87.1 81.3 - 96.[address] [facility] MCH 29.5 27.1 - 33.[address] [facility] MCHC 33.9 32.3 - 35.7 g/dL [facility] RDW CV 13.6 11.1 - 14.9 % [facility] RDW SD 42.7 35.7 - 48.[address] [facility] NRBC abs 0.00 0.00 - 0.01 K/cumm [facility] Blood 09/06/2024 4:31 AM [facility] 09/06/2024 4:54 AM [facility] us Anastasia Amaro MD LAB BLOOD ORDERABLES Final Result Performing Organization Address City/[facility]/ZIP Co de Phone Number [facility] Department [place] [address] * Type and screen (09/06/2024 4:31 AM [facility]) ABO Rh O Negative Abiodun, indirect Negative [facility] Comment:Patient has previous antibody history Blood 09/06/2024 4:31 AM [facility] 09/06/2024 6:11 AM [facility] Narrative [facility] - 09/06/2024 7:16 AM [facility] Has the patient had Daratumumab or Isatuximab in the past 6 months?->Unknown Anastasia Amaro MD LAB BLOOD BANK TEST ORDERA BLES Final Result [facility] Department [place] [address] * (ABNORMAL) Comprehensive metabolic panel (09/06/2024 4:31 AM [facility]) Sodium 138 135 - 145 mmol/L Potassium, pl 3.6 3.3 - 4.9 mmol/L [facility] Chloride 105 97 - 110 mmol/L [facility] CO2 24 22 - 32 mmol/L [facility] Anion gap 9 2 - 15 mmol/L [facility] BUN 7 6 - 25 mg/dL [facility] Creatinine 0.63 0.60 - 1.10 mg/dL [facility] Glucose 62(L) 70 - 199 mg/dL [facility] Comment: Interpretive Data Fasting glucose [...] 9.3 8.5 - 10.3 mg/dL [facility] Bilirubin, total 0.3 0.1 - 1.2 mg/dL [facility] Protein, pl 6.6 6.5 - 8.5 g/dL [facility] Albumin 3.2(L) 3.5 - 5.0 g/dL [facility] Alk phos 118 40 - 130 Units/L [facility] ALT 23 7 - 45 Units/L [facility] AST 22 10 - 45 Units/L [facility] Blood 09/06/2024 4:31 AM [facility] 09/06/2024 4:53 AM [facility] us Anastasia Amaro MD LAB BLOOD ORDERABLES Final Result Performing Organization Address [facility]/ZIP Co de Phone Number [facility] [place] [address] * Group B streptococcal culture Vaginal/Rectal (09/03/2024 10:29 AM [facility]) Report Final Report: Negative Vaginal/Rectal 09/03/2024 10 :29 AM [facility] 09/03/2024 10:47 AM [facility] Narrative [facility] - 09/07/2024 11:05 AM [facility] Testing performed by [facility] ([phone]). us Joellen Julio MD LAB MICROBIOLOGY - GENERAL O RDERABLES Final Result Performing Organization Address City/[facility] Co de Phone Number [facility] [place] [address] * eGFR (09/03/2024 5:26 AM [facility]) eGFR >90 >=60 mL/min/1. 73 m2 Comment: [...] last reviewed 2021. Blood 09/03/2024 5:26 AM [facility] 09/03/2024 5:39 AM [facility] us Anastasia Amaro MD LAB BLOOD ORDERABLES Final Result [facility] Department [place] [address] * (ABNORMAL) CBC without differential (09/03/2024 5:26 AM [facility]) WBC 12.1(H) 3.8 - 9.9 K/cumm Hgb 11.7(L) 11.9 - 15.5 g/dL [facility] Hct 34.0(L) 35.6 - 45.5 % [facility] Plt 273 150 - 400 K/cumm [facility] MPV 11.0 9.1 - 12.[address] [facility] RBC 3.97 3.90 - 5.20 M/cumm [facility] MCV 85.6 81.3 - 96.[address] [facility] MCH 29.5 27.1 - 33.[address] [facility] MCHC 34.4 32.3 - 35.7 g/dL [facility] RDW CV 13.3 11.1 - 14.9 % [facility] RDW SD 41.7 35.7 - 48.[address] [facility] NRBC abs 0.00 0.00 - 0.01 K/cumm [facility] Blood 09/03/2024 5:26 AM [employer] [employer] [facility] 09/03/2024 5:39 AM [employer] [employer] [facility] us Anastasia Amaro MD LAB BLOOD ORDERABLES Final Result Performing Organization Address [facility] Co de Phone Number [facility] [place] [address] * Type and screen (09/03/2024 5:26 AM [employer] [employer] [facility]) Pathologist [facility] Abiodun, indirect Negative Comment:Patient has previous antibody history ABO Rh O Negative [facility] Blood 09/03/2024 5:26 AM [employer] [employer] [facility] 09/03/2024 5:32 AM [facility] [employer] [facility] Narrative [facility] - 09/03/2024 6:27 AM [facility] [employer] [facility] Has the patient had Daratumumab or Isatuximab in the past 6 months?->Unknown Anastasia Amaro MD LAB BLOOD BANK TEST ORDERA BLES Final Result Performing Organization Address [facility] de Phone Number [facility] [place] [address] * (ABNORMAL) Comprehensive metabolic panel (09/03/2024 5:26 AM [facility] [employer] [facility]) [facility] Sodium 139 135 - 145 mmol/L Potassium, pl 4.0 3.3 - 4.9 mmol/L [facility] Chloride 105 97 - 110 mmol/L [facility] CO2 20(L) 22 - 32 mmol/L [facility] Anion gap 14 2 - 15 mmol/L [facility] BUN 8 6 - 25 mg/dL [facility] Creatinine 0.55(L) 0.60 - 1.10 mg/dL [facility] Glucose 68(L) 70 - 199 mg/dL [facility] Comment: Interpretive Data Fasting glucose [...] 9.3 8.5 - 10.3 mg/dL [facility] Bilirubin, total 0.3 0.1 - 1.2 mg/dL [facility] Protein, pl 6.4(L) 6.5 - 8.5 g/dL [facility] Albumin 3.3(L) 3.5 - 5.0 g/dL [facility] Alk phos 111 40 - 130 Units/L [facility] ALT 22 7 - 45 Units/L [facility] AST 24 10 - 45 Units/L [facility] Blood 09/03/2024 5:26 AM [employer] [employer] [facility] 09/03/2024 5:39 AM [employer] [facility] us Anastasia Amaro MD LAB BLOOD ORDERABLES Final Result [facility] Department [place] [address] * ECG 12 lead (09/02/2024 4:33 PM [facility]) Ventricular Rate EKG/Min 110 BPM [facility] Atrial Rate 110 BPM [facility] MN-Interval (MSEC) 130 ms [facility] QRS-Interval (MSEC) 82 ms [facility] QT-Interval (MSEC) 340 ms [facility] QTc 460 ms [facility] P [place] 55 degrees [facility] R [place] 22 degrees [facility] T [place] 30 degrees [facility] Diagnosis Sinus tachycardia Otherwise normal ECG No previous ECGs available Confirmed by SAMANTA KAPALN M.D ([id number]) on 09/06/2024 2:44:26 PM [facility] 09/02/2024 4:33 PM [facility] 09/06/2024 2:44 PM [facility] us Joellen Julio MD ECG ORDERABLES Final Result [facility] * eGFR (08/31/2024 6:20 AM [facility]) eGFR >90 >=60 mL/min/1. 73 m2 Comment: [...] last reviewed 2021. Blood 08/31/2024 6:20 AM [facility] 08/31/2024 7:25 AM [facility] Anastasia Amaro MD LAB BLOOD ORDERABLES Final Result [facility] One [facility] Department [place] [address] * (ABNORMAL) CBC without differential (08/31/2024 6:20 AM [facility]) WBC 10.5(H) 3.8 - 9.9 K/cumm Hgb 11.5(L) 11.9 - 15.5 g/dL [facility] Hct 34.1(L) 35.6 - 45.5 % [facility] Plt 282 150 - 400 K/cumm [facility] MPV 10.9 9.1 - 12.[address] [facility] RBC 3.93 3.90 - 5.20 M/cumm [facility] MCV 86.8 81.3 - 96.[address] [facility] MCH 29.3 27.1 - 33.[address] [facility] MCHC 33.7 32.3 - 35.7 g/dL [facility] RDW CV 13.7 11.1 - 14.9 % [facility] RDW SD 42.6 35.7 - 48.[address] [facility] NRBC abs 0.00 0.00 - 0.01 K/cumm [facility] Blood 08/31/2024 6:20 AM [facility] 08/31/2024 7:25 AM [facility] Anastasia Amaro MD LAB BLOOD ORDERABLES Final Result Performing Organization Address [facility] de Phone Number [facility] [place] [address] * Type and screen (08/31/2024 6:20 AM [employer] [facility]) [facility] ABO Rh O Negative Abiodun, indirect Negative [facility] Comment:Patient has previous antibody history Blood 08/31/2024 6:20 AM [facility] [employer] [facility] 08/31/2024 7:41 AM [facility] Narrative [facility] - 08/31/2024 8:26 AM [facility] [employer] [facility] Has the patient had Daratumumab or Isatuximab in the past 6 months?->Unknown Anastasia Amaro MD LAB BLOOD BANK TEST ORDERA BLES Final Result Performing Organization Address [facility] de Phone Number [facility] [place] [address] * (ABNORMAL) Comprehensive metabolic panel (08/31/2024 6:20 AM [facility]) [facility] Sodium 137 135 - 145 mmol/L Potassium, pl 3.7 3.3 - 4.9 mmol/L [facility] Chloride 103 97 - 110 mmol/L [facility] CO2 22 22 - 32 mmol/L [facility] Anion gap 12 2 - 15 mmol/L [facility] BUN 6 6 - 25 mg/dL [facility] Creatinine 0.56(L) 0.60 - 1.10 mg/dL [facility] Glucose 70 70 - 199 mg/dL [facility] Comment: Interpretive Data Fasting glucose [...] Calcium 9.5 8.5 - 10.3 mg/dL [facility] Bilirubin, total 0.2 0.1 - 1.2 mg/dL [facility] Protein, pl 6.4(L) 6.5 - 8.5 g/dL [facility] Albumin 3.2(L) 3.5 - 5.0 g/dL [facility] Alk phos 103 40 - 130 Units/L [facility] ALT 28 7 - 45 Units/L [facility] AST 25 10 - 45 Units/L [facility] Blood 08/31/2024 6:20 AM [employer] 08/31/2024 7:25 AM [employer] [facility] us Anastasia Amaro MD LAB BLOOD ORDERABLES Final Result [facility] One [facility] Department [place] [address] * nonstress test (08/29/2024 2:32 PM [facility] [employer] [facility]) Narrative Nini Cortez MD - 08/29/2024 2:32 PM [facility] Maureen Calix MD 08/29/2024 3:38 PM nonstress test Date/Time: 08/29/2024 2:32 PM Performed by: Maureen Calix MD Authorized by: Ana M Rogers MD us Ana M Rogers MD OB GYNE ORDERABLES Fi nal Result * nonstress test (08/28/2024 7:47 PM [facility]) Narrative Nini Cortez MD - 08/28/2024 7:47 PM [employer] Francisca Yun MD 08/28/2024 7:48 PM A FHR Baseline: 120 Variability: moderate Reactive: Yes Contractions: absent B FHR Baseline: 130 Variability: moderate Reactive: Yes Contractions: absent Comments: No decels x2 I have reviewed NST and instructed RN to take off monitor Francisca Yun MD us Ana M Rogers MD OB GYNE ORDERABLES Fi nal Result * eGFR (08/28/2024 6:00 AM [facility]) eGFR >90 >=60 mL/min/1. 73 m2 Comment: [...] last reviewed 2021. Blood 08/28/2024 6:00 AM [facility] 08/28/2024 6:13 AM [employer] [facility] us Anastasia Amaro MD LAB BLOOD ORDERABLES Final Result [facility] One [facility] [place] [address] * (ABNORMAL) CBC without differential (08/28/2024 6:00 AM [facility] [employer] [facility]) WBC 10.3(H) 3.8 - 9.9 K/cumm Hgb 11.2(L) 11.9 - 15.5 g/dL [facility] Hct 33.0(L) 35.6 - 45.5 % [facility] Plt 289 150 - 400 K/cumm [facility] MPV 10.7 9.1 - 12.[address] [facility] RBC 3.78(L) 3.90 - 5.20 M/cumm [facility] MCV 87.3 81.3 - 96.[address] [facility] MCH 29.6 27.1 - 33.[address] [facility] MCHC 33.9 32.3 - 35.7 g/dL [facility] RDW CV 13.7 11.1 - 14.9 % [facility] RDW SD 43.6 35.7 - 48.[address] [facility] NRBC abs 0.00 0.00 - 0.01 K/cumm [facility] Blood 08/28/2024 6:00 AM [employer] 08/28/2024 6:20 AM [facility] [employer] [facility] Anastasia Amaro MD LAB BLOOD ORDERABLES Final Result Performing Organization Address City/[facility]/ZIP Co de Phone Number [facility] [place] [address] * Type and screen (08/28/2024 6:00 AM [employer] [facility]) ABO Rh O Negative Comment:Patient has previous antibody history Abiodun, indirect Negative [facility] Blood 08/28/2024 6:00 AM [employer] 08/28/2024 6:54 AM [facility] Narrative [facility] - 08/28/2024 7:53 AM [facility] Has the patient had Daratumumab or Isatuximab in the past 6 months?->Unknown Anastasia Amaro MD LAB BLOOD BANK TEST ORDERA BLES Final Result Performing Organization Address City/[facility]/ZIP Co de Phone Number [facility] [place] [address] * (ABNORMAL) Comprehensive metabolic panel (08/28/2024 6:00 AM [facility] [employer] [facility]) Sodium 137 135 - 145 mmol/L Potassium, pl 3.6 3.3 - 4.9 mmol/L [facility] Chloride 105 97 - 110 mmol/L [facility] CO2 21(L) 22 - 32 mmol/L [facility] Anion gap 11 2 - 15 mmol/L [facility] BUN 8 6 - 25 mg/dL [facility] Creatinine 0.52(L) 0.60 - 1.10 mg/dL [facility] Glucose 74 70 - 199 mg/dL [facility] Comment: Interpretive Data Fasting glucose [...] 9.3 8.5 - 10.3 mg/dL [facility] Bilirubin, total 0.2 0.1 - 1.2 mg/dL [facility] Protein, pl 6.2(L) 6.5 - 8.5 g/dL [facility] Albumin 3.2(L) 3.5 - 5.0 g/dL [facility] Alk phos 96 40 - 130 Units/L [facility] ALT 25 7 - 45 Units/L [facility] AST 22 10 - 45 Units/L [facility] Blood 08/28/2024 6:00 AM [employer] 08/28/2024 6:13 AM [employer] [facility] us Anastasia Amaro MD LAB BLOOD ORDERABLES Final Result [facility] One [facility] Department [place] [address] * eGFR (08/25/2024 6:19 AM [facility] [employer] [facility]) eGFR >90 >=60 mL/min/1. 73 m2 Comment: [...] last reviewed 2021. Blood 08/25/2024 6:19 AM [facility] 08/25/2024 6:33 AM [employer] [facility] us Anastasia Amaro MD LAB BLOOD ORDERABLES Final Result [facility] One [facility] Department [place] [address] * (ABNORMAL) CBC without differential (08/25/2024 6:19 AM [facility] [employer] [facility]) [facility] WBC 10.5(H) 3.8 - 9.9 K/cumm Hgb 11.4(L) 11.9 - 15.5 g/dL [facility] Hct 33.4(L) 35.6 - 45.5 % [facility] Plt 299 150 - 400 K/cumm [facility] MPV 10.6 9.1 - 12.[address] [facility] RBC 3.90 3.90 - 5.20 M/cumm [facility] MCV 85.6 81.3 - 96.[address] [facility] MCH 29.2 27.1 - 33.[address] [facility] MCHC 34.1 32.3 - 35.7 g/dL [facility] RDW CV 13.4 11.1 - 14.9 % [facility] RDW SD 41.7 35.7 - 48.[address] [facility] NRBC abs 0.00 0.00 - 0.01 K/cumm [facility] Blood 08/25/2024 6:19 AM [facility] 08/25/2024 6:32 AM [facility] Anastasia Amaro MD LAB BLOOD ORDERABLES Final Result Performing Organization Address [facility] Co de Phone Number [facility] [place] [address] * Type and screen (08/25/2024 6:19 AM [employer] [facility]) [facility] Abiodun, indirect Negative Comment:Patient has previous antibody history ABO Rh O Negative [facility] Blood 08/25/2024 6:19 AM [employer] [facility] 08/25/2024 7:06 AM [facility] Narrative [facility] - 08/25/2024 8:01 AM [facility] Has the patient had Daratumumab or Isatuximab in the past 6 months?->Unknown Anastasia Amaro MD LAB BLOOD BANK TEST ORDERA BLES Final Result Performing Organization Address [facility] de Phone Number [facility] [place] [address] * (ABNORMAL) Comprehensive metabolic panel (08/25/2024 6:19 AM [facility] [facility]) [facility] Sodium 139 135 - 145 mmol/L Potassium, pl 3.5 3.3 - 4.9 mmol/L [facility] Chloride 105 97 - 110 mmol/L [facility] CO2 22 22 - 32 mmol/L [facility] Anion gap 12 2 - 15 mmol/L [facility] BUN 6 6 - 25 mg/dL [facility] Creatinine 0.53(L) 0.60 - 1.10 mg/dL [facility] Glucose 70 70 - 199 mg/dL [facility] Comment: Interpretive Data Fasting glucose [...] 9.2 8.5 - 10.3 mg/dL [facility] Bilirubin, total 0.2 0.1 - 1.2 mg/dL [facility] Protein, pl 6.4(L) 6.5 - 8.5 g/dL [facility] Albumin 3.2(L) 3.5 - 5.0 g/dL [facility] Alk phos 92 40 - 130 Units/L [facility] ALT 22 7 - 45 Units/L [facility] AST 22 10 - 45 Units/L [facility] Blood 08/25/2024 6:19 AM [employer] 08/25/2024 6:33 AM [employer] [facility] us Anastasia Amaro MD LAB BLOOD ORDERABLES Final Result [facility] One [facility] Department [place] [address] * US Ob Follow Up (08/24/2024 9:37 AM [facility]) Fetus# Fetus1 VIEWPOINT Estimated Weight 1,348 g&grams VIEWPOINT Placenta Details anterior VIEWPOINT Presentation Vertex; Maternal right- low VIEWPOINT Fetus# Fetus2 VIEWPOINT Estimated Weight 1,784 g&grams VIEWPOINT Placenta Details anterior VIEWPOINT Presentation Vertex; Maternal left- high (presenting) VIEWPOINT Anatomical Region Laterality Modality Abdomen N/A Ultrasound 08/24/2024 9:37 AM [facility] Impressions 08/24/2024 2:06 PM [facility] 1. Presumed Mo/Di twin IUP at 30w [...] Edite d * eGFR (08/22/2024 6:02 AM [facility]) eGFR >90 >=60 mL/min/1. 73 m2 Comment: [...] last reviewed 2021. Blood 08/22/2024 6:02 AM [facility] 08/22/2024 6:18 AM [facility] [facility] us Anastasia Amaro MD LAB BLOOD ORDERABLES Final Result [facility] One [facility] Department [place] [address] * (ABNORMAL) CBC without differential (08/22/2024 6:02 AM [facility]) WBC 12.2(H) 3.8 - 9.9 K/cumm Hgb 11.8(L) 11.9 - 15.5 g/dL [facility] Hct 34.4(L) 35.6 - 45.5 % [facility] Plt 277 150 - 400 K/cumm [facility] MPV 10.4 9.1 - 12.[address] [facility] RBC 4.02 3.90 - 5.20 M/cumm [facility] MCV 85.6 81.3 - 96.[address] [facility] MCH 29.4 27.1 - 33.[address] [facility] MCHC 34.3 32.3 - 35.7 g/dL [facility] RDW CV 13.6 11.1 - 14.9 % [facility] RDW SD 42.4 35.7 - 48.[address] [facility] NRBC abs 0.00 0.00 - 0.01 K/cumm [facility] Blood 08/22/2024 6:02 AM [employer] [facility] 08/22/2024 6:18 AM [facility] Anastasia Amaro MD LAB BLOOD ORDERABLES Final Result Performing Organization Address [facility] de Phone Number [facility] [place] [place] [address] * Type and screen (08/22/2024 6:02 AM [employer] [facility]) [facility] Abiodun, indirect Negative Comment:Patient has previous antibody history ABO Rh O Negative [facility] Blood 08/22/2024 6:02 AM [facility] 08/22/2024 6:24 AM [facility] Narrative [facility] - 08/22/2024 7:25 AM [facility] Has the patient had Daratumumab or Isatuximab in the past 6 months?->Unknown Anastasia Amaro MD LAB BLOOD BANK TEST ORDERA BLES Final Result Performing Organization Address [facility] de Phone Number [place] [address] * (ABNORMAL) Comprehensive metabolic panel (08/22/2024 6:02 AM [facility]) [facility] Sodium 138 135 - 145 mmol/L Potassium, pl 3.7 3.3 - 4.9 mmol/L [facility] Chloride 104 97 - 110 mmol/L [facility] CO2 23 22 - 32 mmol/L [facility] Anion gap 11 2 - 15 mmol/L [facility] BUN 7 6 - 25 mg/dL [facility] Creatinine 0.53(L) 0.60 - 1.10 mg/dL [facility] Glucose 72 70 - 199 mg/dL [facility] Comment: Interpretive Data Fasting glucose [...] 2022. Calcium 9.3 8.5 - 10.3 mg/dL [facility] Bilirubin, total 0.2 0.1 - 1.2 mg/dL [facility] Protein, pl 6.6 6.5 - 8.5 g/dL [facility] Albumin 3.2(L) 3.5 - 5.0 g/dL [facility] Alk phos 90 40 - 130 Units/L [facility] ALT 19 7 - 45 Units/L [facility] AST 18 10 - 45 Units/L [facility] Blood 08/22/2024 6:02 AM [employer] [facility] 08/22/2024 6:18 AM [facility] [employer] [facility] us Anastasia Amaro MD LAB BLOOD ORDERABLES Final Result [facility] One [facility] Department [place] [address] * eGFR (08/19/2024 6:25 AM [facility]) eGFR >90 >=60 mL/min/1. 73 m2 Comment: [...] last reviewed 2021. Blood 08/19/2024 6:25 AM [facility] 08/19/2024 7:23 AM [facility] Anastasia Amaro MD LAB BLOOD ORDERABLES Final Result Performing Organization Address City/[facility]/ZIP Co de Phone Number [facility] [place] [address] * (ABNORMAL) CBC without differential (08/19/2024 6:25 AM [facility]) WBC 11.2(H) 3.8 - 9.9 K/cumm Hgb 11.3(L) 11.9 - 15.5 g/dL [facility] Hct 33.9(L) 35.6 - 45.5 % [facility] Plt 249 150 - 400 K/cumm [facility] MPV 10.6 9.1 - 12.[address] [facility] RBC 3.89(L) 3.90 - 5.20 M/cumm [facility] MCV 87.1 81.3 - 96.[address] [facility] MCH 29.0 27.1 - 33.[address] [facility] MCHC 33.3 32.3 - 35.7 g/dL [facility] RDW CV 13.4 11.1 - 14.9 % [facility] RDW SD 42.5 35.7 - 48.[address] [facility] NRBC abs 0.00 0.00 - 0.01 K/cumm [facility] Blood 08/19/2024 6:25 AM [facility] 08/19/2024 7:23 AM [facility] Anastasia Amaro MD LAB BLOOD ORDERABLES Final Result Performing Organization Address City/[facility]/ZIP Co de Phone Number [facility] Department [place] [address] * Type and screen (08/19/2024 6:25 AM [facility]) Abiodun, indirect Negative ABO Rh O Negative [facility] Comment:Patient has previous antibody history Blood 08/19/2024 6:25 AM [facility] 08/19/2024 7:31 AM [facility] Narrative [facility] - 08/19/2024 8:22 AM [facility] Has the patient had Daratumumab or Isatuximab in the past 6 months?->Unknown us Anastasia Amaro MD LAB BLOOD BANK TEST ORDERA BLES Final Result [facility] One [facility] Department [place] [address] * (ABNORMAL) Comprehensive metabolic panel (08/19/2024 6:25 AM [facility]) Sodium 138 135 - 145 mmol/L Potassium, pl 3.7 3.3 - 4.9 mmol/L [facility] Chloride 105 97 - 110 mmol/L [facility] CO2 23 22 - 32 mmol/L [facility] Anion gap 10 2 - 15 mmol/L [facility] BUN 7 6 - 25 mg/dL [facility] Creatinine 0.54(L) 0.60 - 1.10 mg/dL [facility] Glucose 68(L) 70 - 199 mg/dL [facility] Comment: Interpretive Data Fasting glucose [...] 9.3 8.5 - 10.3 mg/dL [facility] Bilirubin, total 0.2 0.1 - 1.2 mg/dL [facility] Protein, pl 6.3(L) 6.5 - 8.5 g/dL [facility] Albumin 3.0(L) 3.5 - 5.0 g/dL [facility] Alk phos 88 40 - 130 Units/L [facility] ALT 13 7 - 45 Units/L [facility] AST 18 10 - 45 Units/L [facility] Blood 08/19/2024 6:25 AM [employer] [facility] 08/19/2024 7:23 AM [employer] [facility] us Anastasia Amaro MD LAB BLOOD ORDERABLES Final Result [facility] Department [place] [address] * US Ob Limited (08/16/2024 8:35 AM [employer] [facility]) Fetus# [id number] VIEWPOINT Placenta Details anterior VIEWPOINT Presentation Transverse, maternal right-low VIEWPOINT Fetus# Fetus2 VIEWPOINT Placenta Details anterior VIEWPOINT Presentation Vertex; Maternal left- high VIEWPOINT Anatomical Region Laterality Modality Abdomen N/A Ultrasound 08/16/2024 8:36 AM [employer] [facility] Impressions 08/16/2024 2:23 PM ENROLLMENT SERVICES DEAN Diamniotic (presumed MCDA) TIUP at 29w1d who is admitted for preE with severe features who presents for TTTS screen.Chorionicity was not fully assessed but was previously determined to be monochorionic by the [facility] MFM practice. Anatomic surveys were also [...] Result * Antibody identification (08/16/2024 7:34 AM ENR[employer]LLMENT SERVICES DEAN) Antibody ID 1 Passive Anti-D Blood 08/16/2024 7:34 AM [employer]MENT SERVICES DEAN 08/16/2024 7:34 AM [employer]LLMENT SERVICES DEAN Anastasia Amaro MD LAB BLOOD BANK TEST ORDERA BLES Final Result [facility] Department [place] [address] * eGFR (08/16/2024 6:15 AM ENROLLMENT SERVICES DEAN) eGFR >90 >=60 mL/min/1. 73 m2 Comment: [...] last reviewed 2021. Blood 08/16/2024 6:15 AM E[employer]LLMENT SERVICES DEAN 08/16/2024 6:29 AM [employer]LLMENT SERVICES DEAN Anastasia Amaro MD LAB BLOOD ORDERABLES Final Result Performing Organization Address City/[facility]/ZIP Co de Phone Number [facility] [place] [place] [address] * Thyroid Function [place] (08/16/2024 6:15 AM ENROLLMENT SERVICES DEAN) Pathologist [facility] TSH 3.83 0.30 - 4.20 mcIUnit/mL Blood 08/16/2024 6:15 AM E[employer]LLMENT SERVICES DEAN 08/16/2024 6:29 AM E[employer]LLMENT SERVICES DEAN Anastasia Amaro MD LAB BLOOD ORDERABLES Final Result Performing Organization Address City/[facility] Co de Phone Number [facility] [place] [place] [address] * (ABNORMAL) CBC without differential (08/16/2024 6:15 AM ENROLLMENT SERVICES DEAN) Pathologist [facility] WBC 10.9(H) 3.8 - 9.9 K/cumm Hgb 11.6(L) 11.9 - 15.5 g/dL [facility] Hct 34.0(L) 35.6 - 45.5 % [facility] Plt 257 150 - 400 K/cumm [facility] MPV 10.4 9.1 - 12.[address] [facility] RBC 3.95 3.90 - 5.20 M/cumm [facility] MCV 86.1 81.3 - 96.[address] [facility] MCH 29.4 27.1 - 33.[address] [facility] MCHC 34.1 32.3 - 35.7 g/dL [facility] RDW CV 13.3 11.1 - 14.9 % [facility] RDW SD 41.5 35.7 - 48.[address] [facility] NRBC abs 0.00 0.00 - 0.01 K/cumm [facility] Blood 08/16/2024 6:15 AM [employer]MENT SERVICES DEAN 08/16/2024 6:30 AM [employer]MENT SERVICES DEAN Anastasia Amaro MD LAB BLOOD ORDERABLES Final Result Performing Organization Address [facility] Co de Phone Number [facility] [place] [place] [address] * (ABNORMAL) Type and screen (08/16/2024 6:15 AM ENROLLMENT SERVICES DEAN) [facility] Abiodun, indirect Positive(A) ABO Rh O Negative [facility] Blood 08/16/2024 6:15 AM E[employer]LLMENT SERVICES DEAN 08/16/2024 6:25 AM E[employer]LLMENT SERVICES DEAN Narrative [facility] - 08/16/2024 7:34 AM ENR[employer]LLMENT SERVICES DEAN Has the patient had Daratumumab or Isatuximab in the past 6 months?->Unknown Anastasia Amaro MD LAB BLOOD BANK TEST ORDERA BLES Final Result Performing Organization Address [facility] de Phone Number [facility] [place] [address] * (ABNORMAL) Comprehensive metabolic panel (08/16/2024 6:15 AM ENROLLMENT SERVICES DEAN) Pathologist [facility] Sodium 139 135 - 145 mmol/L Potassium, pl 3.4 3.3 - 4.9 mmol/L [facility] Chloride 105 97 - 110 mmol/L [facility] CO2 23 22 - 32 mmol/L [facility] Anion gap 11 2 - 15 mmol/L [facility] BUN 8 6 - 25 mg/dL [facility] Creatinine 0.51(L) 0.60 - 1.10 mg/dL [facility] Glucose 72 70 - 199 mg/dL [facility] Comment: Interpretive Data Fasting glucose [...] 9.2 8.5 - 10.3 mg/dL [facility] Bilirubin, total 0.2 0.1 - 1.2 mg/dL [facility] Protein, pl 6.4(L) 6.5 - 8.5 g/dL [facility] Albumin 3.2(L) 3.5 - 5.0 g/dL [facility] Alk phos 86 40 - 130 Units/L [facility] ALT 16 7 - 45 Units/L [facility] AST 16 10 - 45 Units/L [facility] Blood 08/16/2024 6:15 AM [employer] DEAN 08/16/2024 6:29 AM E[employer]LLMENT SERVICES DEAN us Anastasia Amaro MD LAB BLOOD ORDERABLES Final Result [facility] [place] [address] * POCT glucose (08/14/2024 3:06 PM ENROLLMENT SERVICES DEAN) [facility] Glucose, POC 103 70 - 199 mg/dL Comment:Post Meal Glucose comment [address] Post Me[address] [facility] Blood 08/14/2024 3:06 PM [employer]LLMENT SERVICES DEAN 08/14/2024 3:06 PM [employer]LLMENT SERVICES DEAN Anastasia Amaro MD LAB POCT ORDERABLES - JELENA CE Final Result Performing Organization Address City/[facility]/ZIP Co de Phone Number [facility] Department [place] [address] * ECG 12 lead (08/13/2024 9:02 AM ENR[employer]LLMENT SERVICES DEAN) [facility] Ventricular Rate EKG/Min 122 BPM [facility] Atrial Rate 122 BPM [facility] MN-Interval (MSEC) 132 ms [facility] QRS-Interval (MSEC) 80 ms [facility] QT-Interval (MSEC) 324 ms [facility] QTc 461 ms [facility] P [place] 49 degrees [facility] R [place] 18 degrees [facility] T [place] 29 degrees [facility] Diagnosis Sinus tachycardia Otherwise normal ECG When compared with ECG of 04-AUG-2024 17:45, No significant change was found Confirmed by SAMANTA KAPLAN M.D ([id number]) on 08/15/2024 12:21:02 PM [facility] 08/13/2024 9:02 AM [employer] [facility]AN 08/15/2024 12:21 PM E[employer]LLMENT SERVICES DEAN us Anastasia Amaro MD ECG ORDERABLES Final Resu lt [facility] * Antibody identification (08/13/2024 7:42 AM ENR[employer]LLMENT SERVICES DEAN) [facility] Antibody ID 1 Passive Anti-D Blood 08/13/2024 7:42 AM [employer]MENT SERVICES DEAN 08/13/2024 7:42 AM [employer]LLMENT SERVICES DEAN Anastasia Amaro MD LAB BLOOD BANK TEST ORDERA BLES Final Result [facility] Department [place] [address] * eGFR (08/13/2024 5:44 AM ENR[employer]LLMENT SERVICES DEAN) [facility] eGFR >90 >=60 mL/min/1. 73 m2 [...] last reviewed 2021. Blood 08/13/2024 5:44 AM [employer] DEAN 08/13/2024 6:05 AM [employer] DEAN Anastasia Amaro MD LAB BLOOD ORDERABLES Final Result Performing Organization Address City/[facility] Co de Phone Number [facility] [place] [address] * HIV 1/2 Antibody plus p24 Antigen Blood (08/13/2024 5:44 AM ENROLLMENT SERVICES DEAN) HIV 1/2 ab + p24 ag Nonreactive Nonreactive Comment:Nonreactive for HIV- 1 antigen and HIV-1/HIV-2 antibodies. No laboratory evidence of HIV infection. If acute HIV infection is suspected, consider testing for HIV-1 RNA. Current interpretive data was last revised on 22. Blood 08/13/2024 5:44 AM [employer]MENT [employer] DEAN 08/13/2024 6:05 AM [employer] DEAN us Anastasia Amaro MD LAB MICROBIOLOGY - GENERAL ORDERABLES Final Result Performing Organization Address City/[facility]/ZIP Co de Phone Number BIA [facility] [place] [address] * RPR Blood (08/13/2024 5:44 AM ENROLLMENT SERVICES DEAN) RPR Nonreactive Nonreactive Blood 08/13/2024 5:44 AM [employer]MENT SERVICES DEAN 08/13/2024 6:05 AM E[employer]MENT SERVICES DEAN Anastasia Amaro MD LAB MICROBIOLOGY - GENERAL ORDERABLES Final Result Performing Organization Address City/[facility]/ZIP Co de Phone Number [facility] Department [place] [address] * (ABNORMAL) CBC without differential (08/13/2024 5:44 AM ENROLLMENT SERVICES DEAN) Pathologist [facility] WBC 12.4(H) 3.8 - 9.9 K/cumm Hgb 11.8(L) 11.9 - 15.5 g/dL [facility] Hct 34.4(L) 35.6 - 45.5 % [facility] Plt 295 150 - 400 K/cumm [facility] MPV 10.3 9.1 - 12.[address] [facility] RBC 3.93 3.90 - 5.20 M/cumm [facility] MCV 87.5 81.3 - 96.[address] [facility] MCH 30.0 27.1 - 33.[address] [facility] MCHC 34.3 32.3 - 35.7 g/dL [facility] RDW CV 13.6 11.1 - 14.9 % [facility] RDW SD 43.5 35.7 - 48.[address] [facility] NRBC abs 0.00 0.00 - 0.01 K/cumm [facility] Blood 08/13/2024 5:44 AM [employer]MENT SERVICES DEAN 08/13/2024 6:05 AM E[employer]LLMENT SERVICES DEAN us Anastasia Amaro MD LAB BLOOD ORDERABLES Final Result [facility] [place] [address] * (ABNORMAL) Type and screen (08/13/2024 5:44 AM ENROLLMENT SERVICES DEAN) Pathologist [facility] ABO Rh O Negative Abiodun, indirect Positive(A) [facility] Blood 08/13/2024 5:44 AM E[employer]LLMENT SERVICES DEAN 08/13/2024 6:19 AM E[employer]LLMENT SERVICES DEAN Narrative [facility] - 08/13/2024 7:42 AM ENROLLMENT SERVICES DEAN Has the patient had Daratumumab or Isatuximab in the past 6 months?->Unknown Anastasia Amaro MD LAB BLOOD BANK TEST ORDERA BLES Final Result [facility] Department [place] [address] * (ABNORMAL) Comprehensive metabolic panel (08/13/2024 5:44 AM ENROLLMENT SERVICES DEAN) [facility] Sodium 137 135 - 145 mmol/L Potassium, pl 3.7 3.3 - 4.9 mmol/L [facility] Chloride 104 97 - 110 mmol/L [facility] CO2 22 22 - 32 mmol/L [facility] Anion gap 11 2 - 15 mmol/L [facility] BUN 8 6 - 25 mg/dL [facility] Creatinine 0.49(L) 0.60 - 1.10 mg/dL [facility] Glucose 74 70 - 199 mg/dL [facility] Comment: Interpretive Data Fasting glucose [...] Calcium 9.4 8.5 - 10.3 mg/dL [facility] Bilirubin, total 0.3 0.1 - 1.2 mg/dL [facility] Protein, pl 6.5 6.5 - 8.5 g/dL [facility] Albumin 3.3(L) 3.5 - 5.0 g/dL [facility] Alk phos 85 40 - 130 Units/L [facility] ALT 21 7 - 45 Units/L [facility] AST 19 10 - 45 Units/L [facility] Blood 08/13/2024 5:44 AM [employer]MENT SERVICES DEAN 08/13/2024 6:05 AM E[employer]LLMENT SERVICES DEAN us Anastasia Amaro MD LAB BLOOD ORDERABLES Final Result Performing Organization Address [facility] Co de Phone Number [facility] Department [place] [address] * Hepatitis C antibody Blood (05/20/2024 2:47 [...] GENERAL ORDERABLES Final Result Performing Organization Address [facility] Co de Phone Number [facility] [address] Department [place] [address] from Last 3 Months or Most Recently Relevant to Health Maintenance Insurance [employer] [facility] EXCHANGE [employer] [facility] [employer] Advance Directives For more information, please contact: [phone] * Full Code (Latest Code Status on File) Date Activated Date Inactivated Comments 09/19/2024 4:34 PM 09/22/2024 3:32 PM * Full Code Date Activated Date Inactivated Comments 07/29/2024 3:05 AM 09/19/2024 4:34 PM Care Teams Cycle Liaison Relationship Specialty Start Date End Date No, Physician PCP - General 02/25/24
--- OUTSIDE RECORDS SUMMARY | 2024-11-13 20:46 | XMS_ITS | Clinical Summary ---
Author Organization 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 difficile 10/20/2018 10/20/2018 Insurance [facility] MEDICAID
--- OUTSIDE RECORDS SUMMARY | 2024-11-13 20:46 | XMS_ITS | Encounter Summary ---
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 difficile 10/20/2018 10/20/2018 documented as of this encounter
[2024-11-13] MEDS: METOPROLOL TARTRATE INJ 5 MG/5 ML VIAL IV PUSH (20:53)
--- NOTE | 2024-11-13 21:00 | PC.NURSE ---
RESTING QUIETLY ON STRETCHER. NO NEEDS VOICED AT THIS TIME. CALL LIGHT IN REACH
[2024-11-13 21:18] LABS: Basophils Absolute Auto 0.01 K/mm3 (0.00-0.10); Basophils Percent Auto 0.2 % (0.0-1.0); Eosinophils Absolute Auto 0.03 K/mm3 (0.02-0.50); Eosinophils Percent Auto 0.5 % (1.0-6.0); Hematocrit 40.9 % (35.0-49.0); Hemoglobin 13.3 g/dL (12.0-15.0); Immature Granulocyte Absolute 0.02 K/mm3 (0.00-0.00); Immature Granulocyte Percent A 0.3 % (0.0-0.0); Lymphocytes Absolute Auto 2.52 K/mm3 (1.10-4.50); Lymphocytes Percent Auto 40.8 % (18.0-42.0); Mean Corpuscular HGB Conc 32.5 g/dL (32-36); Mean Corpuscular Hemoglobin 27.8 pg (27.0-31.0); Mean Corpuscular Volume 85.6 fL (78.0-102.0); Mean Platelet Volume 9.7 fl (9.2-11.8); Monocytes Absolute Auto 0.67 K/mm3 (0.10-0.90); Monocytes Percent Auto 10.8 % (2.0-11.0); Neutrophils Absolute Auto 2.93 K/mm3 (1.70-7.20); Neutrophils Percent Auto 47.4 % (50.0-70.0); Platelet Count Result 359 K/mm3 (150-420); Red Blood Count 4.78 M/mm3 (4.20-5.40); Red Cell Distribution Width 12.4 % (11.6-14.4); White Blood Count 6.2 K/mm3 (4.8-10.8)
[2024-11-13 21:32] LABS: Alanine Aminotransferase 18 U/L (14-59); Albumin Level 4.1 g/dL (3.4-5.0); Alkaline Phosphatase 59 U/L (46-116); Anion Gap 10 mmol/L (4-12); Aspartate Amino Transferase 12 U/L (15-37); Bilirubin,Total 0.7 mg/dL (0.00-1.00); Blood Urea Nitrogen 9 mg/dL (7-18); Calcium 9.1 mg/dL (8.5-10.1); Carbon Dioxide 26 mmol/L (21-32); Chloride 106 mmol/L (98-108); Estimated CRCL calculation 112 ml/min; Estimated Glomerular Filt Rate > 60; Glucose 87 mg/dL (70-99); Osmolality Calculated 291 mOsm/kg (285-295); Potassium 3.3 mmol/L (3.5-5.1); Sodium 142 mmol/L (136-145); Total Protein 7.4 g/dL (6.4-8.2)
[2024-11-13 21:36] LABS: Troponin I < 4.0 ng/L (0.00-60.4)
--- NOTE | 2024-11-13 21:51 | PC.NURSE ---
PATIENT REPORTS THAT SHE FEELS WELL AND IS READY TO GO HOME.
--- NOTE | 2024-11-13 21:56 | PC.NURSE ---
DR LOWE AT THE BEDSIDE
== END 2024-11-13 22:00 | disposition home or self-care (01) ==
PROVIDERS: Emergency Provider Family Medicine; PCP Internal Medicine
DX: O16.5 Unspecified maternal hypertension, complicating the puerperium (principal)
CPT/HCPCS: 36415; 80053; 83735; 84484; 85025; 93005; 96374; 99284

== ENCOUNTER 2024-11-15 14:44 | Outpatient (CLI) | payer OTHER, MEDICAID, SELFPAY ==
--- NOTE | 2024-11-15 14:49 | ECHO_ITS ---
Patient Info Name: Suki Leon Age: 29 years : 1995 Gender: Female Ht: 66 in Wt: 240 lbs BSA: 2.30 m2 HR: 71 bpm BP: 127 / 90 mmHg Heart Rhythm: Sinus Rhythm Technical Quality: Good Exam Date: 11/15/2024 3:30 PM Exam Location: Echo Lab Patient Status: Outpatient Admit Date: 11/15/2024 Staff Ordering Physician: Bertrand Stephen MD Technology Coach: Maira Pereira RDCS Attending Provider: Bertrand Stephen MD Exam Type: CA echo doppler color flow Study Info Indications - HTN Complete two-dimensional, color flow and Doppler transthoracic echocardiogram is performed. Summary 1. Complete two-dimensional, color flow and Doppler transthoracic echocardiogram is performed. 2. Left ventricular chamber dimension is normal. 3. Left ventricular systolic function is normal, estimated at 60-65%. 4. The left ventricular diastolic function is normal. 5. E/e' 9 is minimally elevated. 6. Left atrial chamber dimension is mildly enlarged. 7. There is trace tricuspid valve regurgitation. 8. No pulmonary hypertension, estimated pulmonary arterial systolic pressure is 37 mmHg. Left Ventricle E/e' 9 is minimally elevated. Left ventricular chamber dimension is normal. Left ventricular systolic function is normal, estimated at 60-65%. The left ventricular diastolic function is normal. Right Ventricle Right ventricular systolic function is normal and with normal TAPSE 2.6 cm. Right ventricular chamber dimension is normal. Left Atria Left atrial chamber dimension is mildly enlarged. Right Atria Right atrial chamber dimension is normal. Aortic Valve The aortic valve is trileaflet. There is no aortic valve stenosis. There is no aortic valve regurgitation. Pulmonic Valve There is no pulmonic regurgitation. Mitral Valve There is no mitral valve stenosis. There is no mitral valve regurgitation. Tricuspid Valve There is trace tricuspid valve regurgitation. No pulmonary hypertension, estimated pulmonary arterial systolic pressure is 37 mmHg. Pericardium/Pleural There is no pericardial effusion. Inferior Vena Cava Normal inferior vena cava with >50% collapse upon inspiration consistent with normal right atrial pressure, 5 mmHg. Aorta The aortic root size at the sinus of Valsalva is normal. Left Ventricular Outflow Tract Name Value Normal LVOT 2D LVOT Diameter 2.4 cm LVOT Doppler LVOT Peak Velocity 104 cm/s LVOT Peak Gradient 4 mmHg LVOT Mean Gradient 2 mmHg LVOT VTI 23 cm LVOT VTI/AV VTI Ratio 0.8 LVOT Stroke Volume 109 ml Pulmonic Valve Name Value Normal PV Doppler PV Peak Velocity 109 cm/s PV Peak Gradient 5 mmHg Mitral Valve Name Value Normal MV Doppler MV Peak Gradient 2 mmHg MV Mean Gradient 1 mmHg MV Decel [place] 405 cm/s2 MV PHT 61 ms MV Area (PHT) 3.6 cm2 4.0-5.0 MV Area (Cont Eq VTI) 3.9 cm2 MV Diastolic Function MV E Peak Velocity 85 cm/s MV A Peak Velocity 58 cm/s MV E/A 1.5 MV Decel Time 211 ms Tricuspid Valve Name Value Normal TV Regurgitation Doppler TR Peak Velocity 282 cm/s TR Peak Gradient 26 mmHg Estimated PAP/RSVP RA Pressure 5 mmHg <=5 PA Systolic Pressure 37 mmHg <36 RV Systolic Pressure 37 mmHg <36 Aortic Valve Name Value Normal AV Doppler AV Peak Velocity 153 cm/s AV Peak Gradient 9 mmHg AV Mean Gradient 4 mmHg AV VTI 28 cm AV Area (Cont Eq VTI) 3.9 cm2 >=3.0 AV Area (Cont Eq Mickey) 3.2 cm2 AV V1/V2 Ratio 0.68 AV Regurgitation 2D LVOT Area 4.7 cm2 Ventricles Name Value Normal LV Dimensions 2D/MM IVS Diastolic Thickness (2D) 0.8 cm 0.6-1.0 LVID Diastole (2D) 5.6 cm 3.8-5.2 LVIW Diastolic Thickness (2D) 0.9 cm 0.6-0.9 LVID Systole (2D) 4.3 cm 2.2-3.5 LVOT Diameter 2.4 cm LV Mass (2D Cubed) 180.20 g 67.00-162.00 LV Mass Index (2D Cubed) 78 g/m2 43-95 Relative Wall Thickness (2D) 0.33 LV Fractional Shortening/Ejection Fraction 2D/MM LV Fractional Shortening (2D) 24 % 27-45 LV EF (2D Teicholz) 48 % 54-74 LV Diastolic Volume (4C MOD) 182 ml LV EF (4C MOD) 61 % LV Diastolic Volume (2C MOD) 184 ml LV EF (2C MOD) 56 % LV Diastolic Volume (BP MOD) 184 ml 46-106 LV Diastolic Volume Index (BP MOD) 80 ml/m2 29-61 LV Systolic Volume (BP MOD) 79 ml 14-42 LV Systolic Volume Index (BP MOD) 34 ml/m2 8-24 LV EF (BP MOD) 57 % 54-74 LV Diastolic Length (4C) 9.2 cm LV Systolic Length (4C) 8.2 cm LV Stroke Volume (4C MOD) 111 ml LV CO (BP MOD) 6.5 l/min LV CI (BP MOD) 2.8 l/min/m2 Atria Name Value Normal LA Dimensions LA Volume (4C A-L) 66 ml LA Volume (BP A-L) 62 ml RA Dimensions RA Area (4C) 19.8 cm2 <=18.0 Report Signatures
--- OUTSIDE RECORDS SUMMARY | 2024-11-15 15:26 | XMS_ITS | Referral Summary ---
Author Organization [facility] Address [address] [place] [phone] Care Team Providers Care Plastics Engineering Teacher Name Role Phone No, Physician Primary Care Provider [phone] Encounters Date Type Department Care Team Description 11/04/2024 Telephone Psychiatry James Rojas MD Reminder of Appointment 11/03/2024 4:37 PM WINDER FIXER - 11/03/2024 11:59 PM WINDER FIXER Hospital Encounter [address] [address] Encounter for routine follow-up Discharge Disposition: Discharge to home or self care 11/03/2024 1:40 PM WINDER FIXER Office Visit [facility] M[facility]- Medicine [address] [place] [address] Floor [address] [place] [phone] Encounter for routine follow-up (Primary Dx) 10/28/2024 [place] [address] Nancy Noel, [facility] Brief Therapeutic Intervention 10/20/2024 Orders Only [facility]- Medicine [address] [place] [address] 7th Floor [address] [place] [phone] Gracy Hicks RN Postpartum care following delivery (Primary Dx); Preeclampsia, unspecified trimester 10/20/2024 1:00 PM WINDER FIXER Office Visit [facility] Maternal- Medicine [address] [place] [address] 7th Floor [address] [place] [phone] care following delivery (Primary Dx) 10/18/2024 1:00 PM WINDER FIXER Telemedicine [facility] [place] [address] Nancy Noel, LEO Generalized anxiety disorder (Primary Dx) 10/16/2024 9:30 AM WINDER FIXER - 10/16/2024 2:10 PM WINDER FIXER Emergency [facility] Emergency Department [address] [place] [address] Satnam Nair MD Secondary hypertension (Primary Dx) Discharge Disposition: Discharge to home or self care 10/07/2024 Telephone [facility] [place] [address] Nancy Noel, LEO [facility] Initial Contact 09/30/[address] [address] 09/25/[address] [address] 07/29/2024 2:42 AM CDT - 09/22/2024 11:26 AM WINDER FIXER Hospital Encounter [address] [address] Anastasia Amaro MD Bligard, MD Sumanth Fitzgerald Julia Ellen, MD Goodman, Sara Olsen MD Preeclampsia, unspecified trimester (Primary Dx); Twin , unable to determine number of placenta and number of amniotic sacs, antepartum, unspecified trimester [O30.099]; 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 Discharge Disposition: Discharge to home or self care 09/19/2024 1:57 PM WINDER FIXER Anesthesia Event [address] [address] Sidra Ann MD Bailey, Cody Allen, MD 09/19/2024 1:30 PM WINDER FIXER - 09/19/2024 4:05 PM WINDER FIXER Surgery [address] [address] Josefina Peter MD SECTION 09/15/2024 9:00 AM WINDER FIXER Ancillary Procedure [facility] [address] [address] 09/08/2024 10:00 AM WINDER FIXER Ancillary Procedure [facility] [address] [address] 08/24/2024 12:30 PM WINDER FIXER Ancillary Procedure [address] [address] 08/16/2024 8:15 AM WINDER FIXER Ancillary Procedure [address] [address] from Last 3 Months Allergies No known active allergies Medications acetaminophen 500 mg capsuleIndicati ons:Pain Take 2 capsules (1,000 mg total) by mouth every 6 (six) hours as needed for pain 90 tablet 09/22/20 24 Active cyclobenzaprine (FLEXERIL) 5 mg tablet Take 1 tablet (5 mg total) by mouth 2 (two) times a day as needed for muscle spasms 30 tablet 09/22/20 24 Active ferrous sulfate 325 mg (65 mg of elemental iron) tabletIndicatio ns:Iron Deficiency Anemia Take 1 tablet (325 mg [...] tablet 2 09/23/20 24 025 Active labetaloL (NORMODYNE,SILVA DATE) 200 mg tablet Take 2 tablets (400 mg total) by mouth 3 (three) times a day 180 tablet 3 10/20/19 25 025 Active blood pressure test kit-large kitIndications: care following delivery,Preecl ampsia, unspecified trimester 1 kit daily Please use [...] (ZOLOFT) 50 mg tablet 10/25/19 25 Active no115/iron/foli c acid ( 19 ORAL) Take by mouth 025 Discontinu ed(Therapy completed) ibuprofen (ADVIL,MOTRIN) 600 mg tabletIndicatio ns:Cramps Take 1 tablet (600 mg total) by mouth every 6 (six) hours as needed for pain 90 tablet 09/22/20 24 025 Discontinu ed(Therapy completed) lidocaine (LIDODERM) 5 % Place 2 patches on the skin daily Remove & discard patch within 12 hours or as directed by MD. 10 patch 09/22/20 24 025 Discontinu ed(Therapy completed) oxyCODONE (ROXICODONE) 5 mg immediate release tabletIndicatio ns:Pain Take 1 tablet (5 mg total) by mouth every 4 (four) hours as needed for pain 15 tablet 09/22/20 24 025 Discontinu ed(Therapy completed) labetaloL (NORMODYNE,SILVA DATE) 300 mg tablet Take 1 tablet (300 mg total) by mouth 4 (four) times a day 120 tablet 10/16/19 25 025 Discontinu ed(Reorder ) cephalexin (KEFLEX) 500 mg capsule Take 1 [...] Blood pressures well controlled on N120XL and H202KDI. CBC/CMP WNL, UPC 0.1. Enrolled in remote [...] # Disposition: Follow up task sent to [facility] scheduling pool for appointments in 2 and 6 weeks. They are enrolled in remote blood pressure monitoring for their BP check. Desires discharge home today. Service Coverage These phones are service phones and carried 27/04 in house: R1 (first call) [phone] R1 alt (second call) [phone] R4 (Chief) [phone] 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 08/29/2024 [...] Blood pressures well controlled on N120XL and A283XUL. Magnesium for seizure prophylaxis. #sinus tachycardia, intermittent: [...] found out that that would be in [place] he used an expletive to express that [...] Tobacco Cessation:Counseling Given: Not Answered [facility] [employer] Answer Date Recorded In the past 12 months has e [employer], oil, or water modulR threatened to shut off services in your [...] staff should administer the PHQ-9) 0 07/28/2024 [facility] - Occupational Stress Questionnaire Answer Date [...] things needed for daily living? No 07/29/2024 [place] Depression Scale Answer Date Recorded [place] Depression Scale Total 21 10/20/2024 The thought [...] were you homeless or living in a group home (including now)? No 07/29/2024 Personal Safety Answer Date Recorded Have you ever been in or are you currently in a harmful physical or emotional relationship or is someone making you feel afraid or unsafe? Denies 10/16/2024 Comments No Sex and Gender Information Value Date Recorded Sex Assigned at Not on file Legal Sex Female 2:19 AM WINDER FIXER Gender Identity Not on file Sexual Orientation Not on file Last Filed Vital Signs Vital Sign Reading Time Taken Comments Blood Pressure 120/81 11/03/2024 1:53 PM WINDER FIXER Pulse 116 11/03/2024 1:53 PM WINDER FIXER Temperature 35.9 C (96.7 F) 10/16/2024 9:28 AM WINDER FIXER Respiratory Rate 18 10/16/2024 11:0 0 AM WINDER FIXER Oxygen Saturation 97% 11/03/2024 1:53 PM WINDER FIXER Inhaled Oxygen Concentration - - Weight 111.5 kg (245 lb 12.8 oz) 11/03/2024 1:53 PM WINDER FIXER Height 167.6 cm (5' 6 ) 10/16/2024 9:28 AM WINDER FIXER Body Mass Index 39.67 10/16/2024 9:28 AM WINDER FIXER Plan of Treatment Not on file Procedures Procedure Name Priority Date/Time Associated Diagnosis Comments PAP WITH REFLEX TO HIGH RISK HPV Routine 11/03/2024 4:37 PM WINDER FIXER Encounter for routine follow-up THINPREP PROCESSING (MOLECULAR COMPONENT) Routine 11/03/2024 4:37 PM WINDER FIXER Encounter for routine follow-up URINALYSIS, MICROSCOPIC ONLY STAT 10/16/2024 11:21 AM WINDER FIXER URINE CULTURE STAT 10/16/2024 11:21 AM WINDER FIXER URINALYSIS AND REFLEX TO MICROSCOPIC AND CULTURE STAT 10/16/2024 11:21 AM WINDER FIXER ECG 12-LEAD STAT 10/16/2024 10:36 AM WINDER FIXER EGFR Add On 10/16/2024 9:47 AM WINDER FIXER DIFFERENTIAL AUTO Add On 10/16/2024 9:4 7 AM WINDER FIXER COMPREHENSIVE METABOLIC PANEL Add-On 10/16/2024 9:47 AM WINDER FIXER CBC WITH AUTO DIFFERENTIAL Add-On 10/16/2024 9:47 AM WINDER FIXER BLEED SCREEN Timed 09/20/2024 4: 48 AM WINDER FIXER ABO/RH Timed 09/20/2024 4:48 AM WINDER FIXER CBC WITHOUT DIFFERENTIAL Routine 09/20/2024 4:48 AM WINDER FIXER RH IMMUNE GLOBULIN EVAL Timed 09/20/2024 4:48 AM WINDER FIXER SURGICAL PATHOLOGY Routine 09/19/2024 4: 06 PM WINDER FIXER ANESTHESIA EPIDURAL BLOCK Routine 09/19/2024 2:45 PM WINDER FIXER SECTION 09/19/2024 1:56 PM WINDER FIXER TIUP Case Notes PreE w/ SF and Multiple gestation EGFR Timed 09/18/2024 6:21 AM WINDER FIXER COMPREHENSIVE METABOLIC PANEL Timed 09/18/2024 6:21 AM WINDER FIXER CBC WITHOUT DIFFERENTIAL Timed 09/18/2024 6:21 AM WINDER FIXER TYPE AND SCREEN Timed 09/18/2024 6:21 AM WINDER FIXER NONSTRESS TEST Routine 09/17/2024 2:58 PM WINDER FIXER Preeclampsia, unspecified trimester 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 US OB FOLLOW UP IP Routine 09/15/2024 1:08 PM WINDER FIXER EGFR Timed 09/15/2024 6:17 AM WINDER FIXER COMPREHENSIVE METABOLIC PANEL Timed 09/15/2024 6:17 AM WINDER FIXER CBC WITHOUT DIFFERENTIAL Timed 09/15/2024 6:17 AM WINDER FIXER TYPE AND SCREEN Timed 09/15/2024 6:17 AM WINDER FIXER NONSTRESS TEST Routine 09/13/2024 5:10 PM WINDER FIXER Preeclampsia, unspecified trimester 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 EGFR Timed 09/12/2024 6:35 AM WINDER FIXER COMPREHENSIVE METABOLIC PANEL Timed 09/12/2024 6:35 AM WINDER FIXER CBC WITHOUT DIFFERENTIAL Timed 09/12/2024 6:35 AM WINDER FIXER TYPE AND SCREEN Timed 09/12/2024 6:35 AM WINDER FIXER EGFR Timed 09/09/2024 6:24 AM WINDER FIXER COMPREHENSIVE METABOLIC PANEL Timed 09/09/2024 6:24 AM WINDER FIXER CBC WITHOUT DIFFERENTIAL Timed 09/09/2024 6:24 AM WINDER FIXER TYPE AND SCREEN Timed 09/09/2024 6:24 AM WINDER FIXER US OB LIMITED IP Routine 09/08/2024 10:29 AM WINDER FIXER NONSTRESS TEST Routine 09/06/2024 8:38 PM WINDER FIXER Preeclampsia, unspecified trimester 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 EGFR Timed 09/06/2024 4:31 AM WINDER FIXER COMPREHENSIVE METABOLIC PANEL Timed 09/06/2024 4:31 AM WINDER FIXER CBC WITHOUT DIFFERENTIAL Timed 09/06/2024 4:31 AM WINDER FIXER TYPE AND SCREEN Timed 09/06/2024 4:31 AM WINDER FIXER GROUP B STREPTOCOCCUS CULTURE Routine 09/03/2024 10:29 AM WINDER FIXER EGFR Timed 09/03/2024 5:26 AM WINDER FIXER COMPREHENSIVE METABOLIC PANEL Timed 09/03/2024 5:26 AM WINDER FIXER CBC WITHOUT DIFFERENTIAL Timed 09/03/2024 5:26 AM WINDER FIXER TYPE AND SCREEN Timed 09/03/2024 5:26 AM WINDER FIXER ECG 12-LEAD Routine 09/02/2024 4:33 PM WINDER FIXER EGFR Timed 08/31/2024 6:20 AM WINDER FIXER COMPREHENSIVE METABOLIC PANEL Timed 08/31/2024 6:20 AM WINDER FIXER CBC WITHOUT DIFFERENTIAL Timed 08/31/2024 6:20 AM WINDER FIXER TYPE AND SCREEN Timed 08/31/2024 6:20 AM WINDER FIXER NONSTRESS TEST Routine 08/29/2024 2:32 PM WINDER FIXER Preeclampsia, unspecified trimester 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 NONSTRESS TEST Routine 08/28/2024 7:47 PM WINDER FIXER Preeclampsia, unspecified trimester 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 EGFR Timed 08/28/2024 6:00 AM WINDER FIXER COMPREHENSIVE METABOLIC PANEL Timed 08/28/2024 6:00 AM WINDER FIXER CBC WITHOUT DIFFERENTIAL Timed 08/28/2024 6:00 AM WINDER FIXER TYPE AND SCREEN Timed 08/28/2024 6:00 AM WINDER FIXER EGFR Timed 08/25/2024 6:19 AM WINDER FIXER COMPREHENSIVE METABOLIC PANEL Timed 08/25/2024 6:19 AM WINDER FIXER CBC WITHOUT DIFFERENTIAL Timed 08/25/2024 6:19 AM WINDER FIXER TYPE AND SCREEN Timed 08/25/2024 6:19 AM WINDER FIXER US OB FOLLOW UP IP Routine 08/24/2024 9:37 AM WINDER FIXER EGFR Timed 08/22/2024 6:02 AM WINDER FIXER COMPREHENSIVE METABOLIC PANEL Timed 08/22/2024 6:02 AM WINDER FIXER CBC WITHOUT DIFFERENTIAL Timed 08/22/2024 6:02 AM WINDER FIXER TYPE AND SCREEN Timed 08/22/2024 6:02 AM WINDER FIXER EGFR Timed 08/19/2024 6:25 AM WINDER FIXER COMPREHENSIVE METABOLIC PANEL Timed 08/19/2024 6:25 AM WINDER FIXER CBC WITHOUT DIFFERENTIAL Timed 08/19/2024 6:25 AM WINDER FIXER TYPE AND SCREEN Timed 08/19/2024 6:25 AM WINDER FIXER US OB LIMITED IP Routine 08/16/2024 8:35 AM WINDER FIXER ANTIBODY IDENTIFICATION Routine 08/16/2024 7:34 AM WINDER FIXER EGFR Timed 08/16/2024 6:15 AM WINDER FIXER THYROID FUNCTION CASCADE Routine 08/16/2024 6:15 AM WINDER FIXER COMPREHENSIVE METABOLIC PANEL Timed 08/16/2024 6:15 AM WINDER FIXER CBC WITHOUT DIFFERENTIAL Timed 08/16/2024 6:15 AM WINDER FIXER TYPE AND SCREEN Timed 08/16/2024 6:15 AM WINDER FIXER HEPATITIS C ANTIBODY Routine 05/20/2024 2:47 PM CDT Encounter for supervision of normal first in first trimester 11 weeks gestation of from Last 3 Months or Most Recently Relevant to Health Maintenance Results * ThinPrep processing (Molecular component) (11/03/2024 4:37 PM WINDER FIXER) ThinPrep processing (Molecular component) Specimen received for processing. [facility] Endocervical 11/03/2024 4:37 PM WINDER FIXER 11/07/2024 8:41 AM WINDER FIXER Jada Ngo NP LAB BODY FLUIDS AND STOOLS ORDERABLES Final Result BIA [facility] Department [place] [address] [facility] * Pap with reflex to High Risk HPV and Genotyping (Cytology Component) (11/03/2024 4:37 PM WINDER FIXER) Thin prep (Pap test) 11/03/2024 4:37 PM WINDER FIXER 11/03/2024 5:54 PM WINDER FIXER Narrative PATHOLOGY [facility] - 11/11/2024 3:38 PM WINDER FIXER EPIC results best viewed via link to PDF [facility] Nicole Brown Laboratory [place] [address] Note to Patients: This report may contain [...] Gender: F : 1995 (Age: 29) Address: [address] [place] [phone] Hospital #: [id number] Service: PROJECT ESTIMATOR Location: Patient Type: [facility] SPECIMEN Taken: 11/03/2024 Received: 11/03/2024 Accessioned: 11/07/2024 [...] clinical information and biopsy results as indicated. CMS Clinical Laboratory Improvement Amendments (CLIA) mandate that cytologic and histologic results be correlated for laboratory director supplier quality & improvement standards. FOR ALL HIGH-GRADE CASES [...] determined by the Surgical Pathology Department at [facility] as part of an ongoing quality intern program and in compliance with federally mandated [...] determined by the Surgical Pathology Department of [facility]. It has not been cleared or approved by the U. S. Food and Drug Administration. Jada Ngo YOUTH WORKER LAB CYTOLOGY ORDERA BLES Final Result PATHOLOGY [facility] 3rd Floor [place], [place] [phone] * (ABNORMAL) Urinalysis reflex to microscopic and culture Urine (10/16/2024 11:21 AM WINDER FIXER) Color, ur Yellow Yellow Clarity, ur Clear [...] tendency for uric acid stone formation. Source: [facility] [employer] Current Interpretive Data was last revised on [...] to microscopic UA will be performed. BIA COUNT INCLUDES THE [facility] ([place]) Urine 10/16/2024 11:2 1 AM WINDER FIXER 10/16/2024 11:23 AM WINDER FIXER Satnam Nair MD LAB MICROBIOLOGY - GENERAL O RDERABLES Final Result Performing Organization Address [facility] Co de Phone Number BIA COUNT INCLUDES THE [facility] ([place]) 1 [facility] [employer] [place] [address] * (ABNORMAL) Urinalysis, microscopic only (10/16/2024 11:21 AM WINDER FIXER) WBC, ur 11-20(A) 0 - 5 /HPF RBC, ur >50(A) 0 - 2 /HPF [facility] ([place]) Epithelial cells, squamous, ur 1-5 0 - 5 /HPF [facility] ([place]) Bacteria, ur Trace(A) [facility] ([place]) Mucous, ur Present(A) [facility] ([place]) Culture Reflex Comment Reflex to urine culture will be performed. [facility] ([place]) Urine 10/16/2024 11:2 1 AM WINDER FIXER 10/16/2024 11:23 AM WINDER FIXER Satnam Nair MD LAB URINE ORDERABLES Final R esult Performing Organization Address [facility] Co de Phone Number [facility] ([place]) 1 [facility] [address] * Urine culture Urine (10/16/2024 11:21 AM WINDER FIXER) Report Final Report: Less than 100,000 colonies/mL (clinically insignificant growth based on current clinical standards) Comment:Testing performed by : [facility], [address] [facility], [place]., [address] Organism (CLINICALLY INSIGNIFICANT GROWTH [facility] ([place]) Urine 10/16/2024 11:2 1 AM WINDER FIXER 10/16/2024 2:00 PM WINDER FIXER Narrative BIA SOU[facility]) - 10/17/2024 3:36 PM WINDER FIXER Urine culture reflexed based upon urinalysis results. Testing performed by [facility] ([phone]) Satnam Nair MD LAB MICROBIOLOGY - GENERAL O RDERABLES Final Result [facility] ([place]) 1 [facility] Department [place] [address] * ECG 12 lead (10/16/2024 10:36 AM WINDER FIXER) 10/16/2024 10:3 6 AM WINDER FIXER Narrative [facility] - 10/17/2024 8:41 AM WINDER FIXER Vent Rate: 65 bpm RR Interval: 922 msec MT Interval: 147 msec QRS Duration: 101 msec QT Interval: 408 msec QTC Interval: 419 msec P-R-T Z[place]: 54 - 21 - 47 degrees IMPRESSION: SINUS RHYTHM NORMAL ECG Electronically Signed By: Dallas Ahn MD Satnam Nair MD ECG ORDERABLES Final Result Performing Organization Address [facility] Co de Phone Number [employer] [facility] * eGFR (10/16/2024 9:47 AM WINDER FIXER) eGFR >90 >=60 mL/min/1. 73 m2 Comment: [...] last reviewed 2021. Blood 10/16/2024 9:47 AM WINDER FIXER 10/16/2024 10:32 AM WINDER FIXER Satnam Nair MD LAB BLOOD ORDERABLES Final R esult [facility] ([place]) 1 [facility] Department [place] [address] * Differential, auto (10/16/2024 9:47 AM WINDER FIXER) Neutrophil abs 2.8 1.5 - 6.5 K/cumm [...] revised on 2018. Blood 10/16/2024 9:47 AM WINDER FIXER 10/16/2024 10:32 AM WINDER FIXER Satnam Nair MD LAB BLOOD ORDERABLES Final R esult [facility] ([place]) 1 [facility] Department [place] [address] * CBC with auto differential (10/16/2024 9:47 AM WINDER FIXER) WBC 4.5 3.8 - 9.9 K/cumm Hgb [...] [facility] ([place]) Blood 10/16/2024 9:47 AM WINDER FIXER 10/16/2024 10:32 AM WINDER FIXER Satnam Nair MD LAB BLOOD ORDERABLES Final R esult [facility] ([place]) 1 [facility] Department [place] [address] * Comprehensive metabolic panel (10/16/2024 9:47 AM WINDER FIXER) Sodium 140 135 - 145 mmol/L Potassium, pl 3.6 3.3 - 4.9 mmol/L [facility] ([place]) Chloride 105 97 - 110 mmol/L [facility] ([place]) CO2 23 22 - 32 mmol/L [facility] ([place]) Anion gap 12 2 - 15 mmol/L [...] Alk phos 57 40 - 130 Units/L [facility] ALT 8 7 - 45 Units/L [facility] ([place]) AST 10 10 - 45 Units/L [facility] ([place]) Blood 10/16/2024 9:47 AM WINDER FIXER 10/16/2024 10:32 AM WINDER FIXER us Satnam Nair MD LAB BLOOD ORDERABLES Final R esult [facility] ([place]) 1 [facility] Department [place] [address] * Rh Immune Globulin Eval (09/20/2024 4:48 AM WINDER FIXER) RhIg Administration 1 vial of Rh Immune Globulin (300 mcg dose) RhIg Eligible Yes, eligible [facility] Blood 09/20/2024 4:48 AM WINDER FIXER 09/20/2024 5:03 AM WINDER FIXER Narrative [facility] - 09/20/2024 5:36 AM WINDER FIXER Number of weeks ?->20 weeks or greater antibody screen result:->Negative Rhogam given?->Given Date Given?->08/01/24 Number of vials requested:->1 us Sara Eng MD LAB BLOOD BANK TEST ORDERABL ES Final Result Performing Organization Address [facility]/ZIP Co de Phone Number [facility] Department [place] [address] * Bleed Screen (09/20/2024 4:48 AM WINDER FIXER) Bleed Screen Negative Blood 09/20/2024 4:48 AM WINDER FIXER 09/20/2024 5:03 AM WINDER FIXER us Rey Quinonez MD LAB BLOOD BANK TEST ORDERABLE S Final Result Performing Organization Address City/[facility]/ZIP Co de Phone Number [facility] Department [place] [address] * ABO/Rh (09/20/2024 4:48 AM WINDER FIXER) Pathologist [facility] ABO Rh O Negative Blood 09/20/2024 4:48 AM WINDER FIXER 09/20/2024 5:03 AM WINDER FIXER us Rey Quinonez MD LAB BLOOD BANK TEST ORDERABLE S Final Result Performing Organization Address [facility] [place] [address] * (ABNORMAL) CBC without differential (09/20/2024 4:48 AM WINDER FIXER) [facility] WBC 10.3(H) 3.8 - 9.9 K/cumm Hgb 9.7(L) 11.9 - 15.5 g/dL [facility] Hct 28.4(L) 35.6 - 45.5 % [facility] Plt 230 150 - 400 K/cumm [facility] MPV 10.8 9.1 - 12.3 fL [facility] RBC 3.22(L) 3.90 - 5.20 M/cumm [facility] MCV 88.2 81.3 - 96.4 fL [facility] MCH 30.1 27.1 - 33.3 pg [facility] MCHC 34.2 32.3 - 35.7 g/dL [facility] RDW CV 13.9 11.1 - 14.9 % [facility] RDW SD 44.6 35.7 - 48.1 fL [facility] NRBC abs 0.00 0.00 - 0.01 K/cumm [facility] Blood 09/20/2024 4:48 AM WINDER FIXER 09/20/2024 5:11 AM WINDER FIXER us Sara Eng MD LAB BLOOD ORDERABLES Final R esult Performing Organization Address City/[facility]/[place] [address] * Surgical pathology (09/19/2024 4:06 PM WINDER FIXER) Tissue (Placenta) 09/19/2024 4:06 PM WINDER FIXER 09/20/2024 8:37 AM WINDER FIXER Narrative PATHOLOGY [facility] - 09/26/2024 2:16 PM WINDER FIXER EPIC results best viewed via link to PDF [facility] Nicole Brown Laboratory [place] [address] Note to Patients: This report may contain [...] Gender: F : 1995 (Age: 29) Address: [address] [place], [place] [phone] Hospital #: [id number] Taken:09/19/2024 Received:09/20/2024 Reported: 09/26/2024 Patient Type: [facility] Inpatient Service: Obstetrics Location: [place] [address] Physician(s): MD Sara Parker M.D. Diagnosis: Placenta, delivery - 662 grams diamnionic, monochorionic, pre-term twin placenta - Acute atherosis - Accelerated villous maturation -Trivascular cords with no histopathologic abnormalities [facility]/09/26/2024 14:16 By this signature, I attest [...] discrete lesions or infarcts are grossly identified. Director Of Web Marketing sections are submitted: A1 = arbitrarily assigned twin A, cord and membranes; A2-4 = twin A, inbound sales representative parenchyma; A5 = common membrane and T-zone; A6 = arbitrarily assigned twin B, cord and membranes; A7-9 = twin B, inbound sales representative parenchyma. Jar 3. sxv/09/21/2024 11:11 PA(s): Catalino Hernandez MS, FREDRICK ([facility])CM By this signature, I attest that the above diagnosis is based upon my personal examination of the slides(and/or other material). Addenda/Procedures The performance characteristics of some immunohistochemical stains, fluorescence in-situ hybridization tests and immunophenotyping by flow cytometry cited in this report (if any) were determined by the Surgical Pathology and Flow Cytometry Departments at [facility] as part of an ongoing quality intern program and in compliance with federally mandated [...] Surgical Pathology and Flow Cytometry Departments of [facility]. It has not been cleared or approved by the U. S. Food and Drug Administration. IMAGES AND SCANNED DOCUMENTS, IF INCLUDED, ONLY VIEWABLE IN PDF VERSION OF REPORT us Sara Eng MD LAB PATHOLOGY ORDERABLES Fin al Result PATHOLOGY [facility] 3rd Floor [place], [place] [phone] * Epidural Block (09/19/2024 2:45 PM WINDER FIXER) Narrative Abena Denton MD - 09/19/2024 2:45 PM WINDER FIXER bAena Denton MD 09/19/2024 2:50 PM Epidural Block [...] Final Result * eGFR (09/18/2024 6:21 AM WINDER FIXER) [facility] eGFR >90 >=60 mL/min/1. 73 m2 [...] last reviewed 2021. Blood 09/18/2024 6:21 AM WINDER FIXER 09/18/2024 6:32 AM WINDER FIXER us Anastasia Amaro MD LAB BLOOD ORDERABLES Final Result [facility] Department [place] [address] * (ABNORMAL) CBC without differential (09/18/2024 6:21 AM WINDER FIXER) [facility] WBC 10.0(H) 3.8 - 9.9 K/cumm Hgb 11.6(L) 11.9 - 15.5 g/dL [facility] Hct 34.0(L) 35.6 - 45.5 % [facility] Plt 250 150 - 400 K/cumm [facility] MPV 11.0 9.1 - 12.3 fL [facility] RBC 3.92 3.90 - 5.20 M/cumm [facility] MCV 86.7 81.3 - 96.4 fL [facility] MCH 29.6 27.1 - 33.3 pg [facility] MCHC 34.1 32.3 - 35.7 g/dL [facility] RDW CV 13.7 11.1 - 14.9 % [facility] RDW SD 43.1 35.7 - 48.1 fL [facility] NRBC abs 0.00 0.00 - 0.01 K/cumm [facility] Blood 09/18/2024 6:21 AM WINDER FIXER 09/18/2024 6:32 AM WINDER FIXER Anastasia Amaro MD LAB BLOOD ORDERABLES Final Result Performing Organization Address City/[facility]/ZIP Co de Phone Number [facility] [place] [address] * Type and screen (09/18/2024 6:21 AM WINDER FIXER) [facility] Abiodun, indirect Negative ABO Rh O Negative [facility] Blood 09/18/2024 6:21 AM WINDER FIXER 09/18/2024 6:35 AM WINDER FIXER Narrative [facility] - 09/18/2024 7:42 AM WINDER FIXER Has the patient had Daratumumab or Isatuximab in the past 6 months?->Unknown Anastasia Amaro MD LAB BLOOD BANK TEST ORDERA BLES Final Result Performing Organization Address City/[facility] Co de Phone Number [facility] [place] [address] * (ABNORMAL) Comprehensive metabolic panel (09/18/2024 6:21 AM WINDER FIXER) Pathologist [facility] Sodium 134(L) 135 - 145 mmol/L Potassium, pl 3.8 3.3 - 4.9 mmol/L [facility] Chloride 105 97 - 110 mmol/L [facility] CO2 23 22 - 32 mmol/L [facility] Anion gap 6 2 - 15 mmol/L [facility] BUN 9 6 - 25 mg/dL [facility] Creatinine 0.69 0.60 - 1.10 mg/dL [facility] Glucose 68(L) 70 - 199 mg/dL [facility] Comment: Interpretive Data Fasting glucose [...] 2022. Calcium 9.0 8.5 - 10.3 mg/dL [facility] Bilirubin, total 0.2 0.1 - 1.2 mg/dL [facility] Protein, pl 6.3(L) 6.5 - 8.5 g/dL [facility] Albumin 3.0(L) 3.5 - 5.0 g/dL [facility] Alk phos 125 40 - 130 Units/L [facility] ALT 14 7 - 45 Units/L [facility] AST 16 10 - 45 Units/L [facility] Blood 09/18/2024 6:21 AM WINDER FIXER 09/18/2024 6:32 AM WINDER FIXER us Anastasia Amaro MD LAB BLOOD ORDERABLES Final Result [facility] Department [place] [address] * nonstress test (09/17/2024 2:58 PM WINDER FIXER) Narrative Sandra Christy MD - 09/17/2024 2:58 PM WINDER FIXER Joellen Schilling MD 09/17/2024 4:04 PM nonstress test Date/Time: 09/17/2024 2:58 PM Performed by: Maureen Calix MD Authorized by: Ana M Rogers MD us Ana M Rogers MD OB GYNE ORDERABLES Fi nal Result * US Ob Follow Up (09/15/2024 1:08 PM WINDER FIXER) Fetus# Fetus1 VIEWPOINT Estimated Weight 1,709 g&grams VIEWPOINT Placenta Details anterior VIEWPOINT Presentation Vertex; Maternal right- low VIEWPOINT Fetus# Fetus2 VIEWPOINT Estimated Weight 2,585 g&grams VIEWPOINT Placenta Details anterior VIEWPOINT Presentation Vertex; Maternal left- high VIEWPOINT Anatomical Region Laterality Modality Abdomen N/A Ultrasound 09/15/2024 1:08 PM WINDER FIXER Impressions 09/15/2024 2:24 PM WINDER FIXER Diamniotic (presumed MCDA) TIUP at 33w33d who is admitted for preE with severe features who presents for growth US was previously determined to be monochorionic by the [facility] MFM practice. A thin dividing membrane and [...] previously determined to be monochorionic by the [facility] MFM[facility]. A thin dividing membrane and single [...] R esult * eGFR (09/15/2024 6:17 AM WINDER FIXER) eGFR >90 >=60 mL/min/1. 73 m2 Comment: [...] last reviewed 2021. Blood 09/15/2024 6:17 AM WINDER FIXER 09/15/2024 6:31 AM WINDER FIXER us Anastasia Amaro MD LAB BLOOD ORDERABLES Final Result [facility] Department [place] [address] * (ABNORMAL) CBC without differential (09/15/2024 6:17 AM WINDER FIXER) WBC 10.1(H) 3.8 - 9.9 K/cumm Hgb 11.7(L) 11.9 - 15.5 g/dL [facility] Hct 34.6(L) 35.6 - 45.5 % [facility] Plt 253 150 - 400 K/cumm [facility] MPV 11.2 9.1 - 12.3 fL [facility] RBC 3.94 3.90 - 5.20 M/cumm [facility] MCV 87.8 81.3 - 96.4 fL [facility] MCH 29.7 27.1 - 33.3 pg [facility] MCHC 33.8 32.3 - 35.7 g/dL [facility] RDW CV 13.8 11.1 - 14.9 % [facility] RDW SD 44.1 35.7 - 48.1 fL [facility] NRBC abs 0.00 0.00 - 0.01 K/cumm [facility] Blood 09/15/2024 6:17 AM WINDER FIXER 09/15/2024 6:31 AM WINDER FIXER Anastasia Amaro MD LAB BLOOD ORDERABLES Final Result Performing Organization Address [facility] [place] [address] * Type and screen (09/15/2024 6:17 AM WINDER FIXER) Pathologist [facility] Abiodun, indirect Negative Comment:Patient has previous antibody history ABO Rh O Negative [facility] Blood 09/15/2024 6:17 AM WINDER FIXER 09/15/2024 6:30 AM WINDER FIXER Narrative [facility] - 09/15/2024 7:57 AM WINDER FIXER Has the patient had Daratumumab or Isatuximab in the past 6 months?->Unknown Anastasia Amaro MD LAB BLOOD BANK TEST ORDERA BLES Final Result Performing Organization Address [facility] de Phone Number [facility] [place] [address] * (ABNORMAL) Comprehensive metabolic panel (09/15/2024 6:17 AM WINDER FIXER) [facility] Sodium 139 135 - 145 mmol/L Potassium, pl 3.5 3.3 - 4.9 mmol/L [facility] Chloride 106 97 - 110 mmol/L [facility] CO2 21(L) 22 - 32 mmol/L [facility] Anion gap 12 2 - 15 mmol/L [facility] BUN 8 6 - 25 mg/dL [facility] Creatinine 0.66 0.60 - 1.10 mg/dL [facility] Glucose 106 70 - 199 mg/dL [facility] Comment: Interpretive Data Fasting glucose [...] Calcium 9.0 8.5 - 10.3 mg/dL [facility] Bilirubin, total <0.2 0.1 - 1.2 mg/dL [facility] Protein, pl 6.4(L) 6.5 - 8.5 g/dL [facility] Albumin 3.0(L) 3.5 - 5.0 g/dL [facility] Alk phos 124 40 - 130 Units/L [facility] ALT 19 7 - 45 Units/L [facility] AST 20 10 - 45 Units/L [facility] Blood 09/15/2024 6:17 AM WINDER FIXER 09/15/2024 6:31 AM WINDER FIXER us Anastasia Amaro MD LAB BLOOD ORDERABLES Final Result [facility] Department [place] [address] * nonstress test (09/13/2024 5:10 PM WINDER FIXER) Narrative Sandra Christy MD - 09/13/2024 5:10 PM WINDER FIXER BolaAnastasia Bay MD 09/13/2024 5:21 PM 27 [...] nal Result * eGFR (09/12/2024 6:35 AM WINDER FIXER) eGFR >90 >=60 mL/min/1. 73 m2 Comment: [...] last reviewed 2021. Blood 09/12/2024 6:35 AM WINDER FIXER 09/12/2024 6:51 AM WINDER FIXER us Anastasia Amaro MD LAB BLOOD ORDERABLES Final Result [facility] Department [place] [address] * (ABNORMAL) CBC without differential (09/12/2024 6:35 AM WINDER FIXER) WBC 10.0(H) 3.8 - 9.9 K/cumm Hgb 11.8(L) 11.9 - 15.5 g/dL [facility] Hct 35.3(L) 35.6 - 45.5 % [facility] Plt 226 150 - 400 K/cumm [facility] MPV 11.2 9.1 - 12.3 fL [facility] RBC 3.97 3.90 - 5.20 M/cumm [facility] MCV 88.9 81.3 - 96.4 fL [facility] MCH 29.7 27.1 - 33.3 pg [facility] MCHC 33.4 32.3 - 35.7 g/dL [facility] RDW CV 13.8 11.1 - 14.9 % [facility] RDW SD 44.5 35.7 - 48.1 fL [facility] NRBC abs 0.02(H) 0.00 - 0.01 K/cumm [facility] Blood 09/12/2024 6:35 AM WINDER FIXER 09/12/2024 6:52 AM WINDER FIXER Anastasia Amaro MD LAB BLOOD ORDERABLES Final Result Performing Organization Address [facility] [place] [address] * Type and screen (09/12/2024 6:35 AM WINDER FIXER) Pathologist [facility] ABO Rh O Negative Abiodun, indirect Negative [facility] Comment:Patient has previous antibody history Blood 09/12/2024 6:35 AM WINDER FIXER 09/12/2024 6:48 AM WINDER FIXER Narrative [facility] - 09/12/2024 7:49 AM WINDER FIXER Has the patient had Daratumumab or Isatuximab in the past 6 months?->Unknown Anastasia Amaro MD LAB BLOOD BANK TEST ORDERA BLES Final Result Performing Organization Address [facility] [place] [address] * (ABNORMAL) Comprehensive metabolic panel (09/12/2024 6:35 AM WINDER FIXER) Pathologist [facility] Sodium 139 135 - 145 mmol/L Potassium, pl 3.8 3.3 - 4.9 mmol/L [facility] Chloride 107 97 - 110 mmol/L [facility] CO2 22 22 - 32 mmol/L [facility] Anion gap 10 2 - 15 mmol/L [facility] BUN 6 6 - 25 mg/dL [facility] Creatinine 0.64 0.60 - 1.10 mg/dL [facility] Glucose 69(L) 70 - 199 mg/dL [facility] Comment: Interpretive Data Fasting glucose [...] Calcium 8.8 8.5 - 10.3 mg/dL [facility] Bilirubin, total <0.2 0.1 - 1.2 mg/dL [facility] Protein, pl 6.4(L) 6.5 - 8.5 g/dL [facility] Albumin 3.1(L) 3.5 - 5.0 g/dL [facility] Alk phos 122 40 - 130 Units/L [facility] ALT 22 7 - 45 Units/L [facility] AST 23 10 - 45 Units/L [facility] Blood 09/12/2024 6:35 AM WINDER FIXER 09/12/2024 6:51 AM WINDER FIXER Anastasia Amaro MD LAB BLOOD ORDERABLES Final Result [facility] Department [place] [address] * eGFR (09/09/2024 6:24 AM WINDER FIXER) eGFR >90 >=60 mL/min/1. 73 m2 Comment: [...] last reviewed 2021. Blood 09/09/2024 6:24 AM WINDER FIXER 09/09/2024 6:52 AM WINDER FIXER Anastasia Amaro MD LAB BLOOD ORDERABLES Final Result Performing Organization Address City/[facility]/ZIP Co de Phone Number [facility] [place] [address] * (ABNORMAL) CBC without differential (09/09/2024 6:24 AM WINDER FIXER) WBC 8.6 3.8 - 9.9 K/cumm Hgb 10.9(L) 11.9 - 15.5 g/dL [facility] Hct 33.1(L) 35.6 - 45.5 % [facility] Plt 239 150 - 400 K/cumm [facility] MPV 11.0 9.1 - 12.3 fL [facility] RBC 3.77(L) 3.90 - 5.20 M/cumm [facility] MCV 87.8 81.3 - 96.4 fL [facility] MCH 28.9 27.1 - 33.3 pg [facility] MCHC 32.9 32.3 - 35.7 g/dL [facility] RDW CV 13.8 11.1 - 14.9 % [facility] RDW SD 43.8 35.7 - 48.1 fL [facility] NRBC abs 0.00 0.00 - 0.01 K/cumm [facility] Blood 09/09/2024 6:24 AM WINDER FIXER 09/09/2024 6:52 AM WINDER FIXER us Anastasia Amaro MD LAB BLOOD ORDERABLES Final Result Performing Organization Address City/[facility]/ZIP Co de Phone Number [facility] [place] [address] * Type and screen (09/09/2024 6:24 AM WINDER FIXER) ABO Rh O Negative Abiodun, indirect Negative [facility] Comment:Patient has previous antibody history Blood 09/09/2024 6:24 AM WINDER FIXER 09/09/2024 7:19 AM WINDER FIXER Narrative [facility] - 09/09/2024 8:51 AM WINDER FIXER Has the patient had Daratumumab or Isatuximab in the past 6 months?->Unknown Anastasia Amaro MD LAB BLOOD BANK TEST ORDERA BLES Final Result [facility] [place] [address] * (ABNORMAL) Comprehensive metabolic panel (09/09/2024 6:24 AM WINDER FIXER) Sodium 141 135 - 145 mmol/L Potassium, pl 3.8 3.3 - 4.9 mmol/L [facility] Chloride 108 97 - 110 mmol/L [facility] CO2 22 22 - 32 mmol/L [facility] Anion gap 11 2 - 15 mmol/L [facility] BUN 8 6 - 25 mg/dL [facility] Creatinine 0.75 0.60 - 1.10 mg/dL [facility] Glucose 70 70 - 199 mg/dL [facility] Comment: Interpretive Data Fasting glucose [...] 2022. Calcium 8.9 8.5 - 10.3 mg/dL [facility] Bilirubin, total <0.2 0.1 - 1.2 mg/dL [facility] Protein, pl 6.2(L) 6.5 - 8.5 g/dL [facility] Albumin 3.2(L) 3.5 - 5.0 g/dL [facility] Alk phos 117 40 - 130 Units/L [facility] ALT 22 7 - 45 Units/L [facility] AST 23 10 - 45 Units/L [facility] Blood 09/09/2024 6:24 AM WINDER FIXER 09/09/2024 6:52 AM WINDER FIXER us Anastasia Amaro MD LAB BLOOD ORDERABLES Final Result [facility] [place] [address] * US Ob Limited (09/08/2024 10:29 AM WINDER FIXER) Fetus# Fetus1 VIEWPOINT Placenta Details anterior VIEWPOINT Presentation Vertex; Maternal right- low VIEWPOINT Fetus# Fetus2 VIEWPOINT Placenta Details anterior VIEWPOINT Presentation Vertex; Maternal left- high (presenting) VIEWPOINT Anatomical Region Laterality Modality Abdomen N/A Ultrasound 09/08/2024 10:2 9 AM WINDER FIXER Impressions 09/08/2024 11:25 AM WINDER FIXER 1. Mo/di twin IUP at 32w 3d. [...] esult * nonstress test (09/06/2024 8:38 PM WINDER FIXER) Narrative Anastasia Amaro MD - 09/06/2024 8:38 PM WINDER FIXER Pauline Simms MD 09/06/2024 8:41 PM Baby A FHR Baseline: 125 Variability: moderate Accelerations: absent Decelerations: absent in last part of tracing, was initially having small variable decels in monitoring Reactive: Yes Baby B FHR Baseline: 130 Variability: moderate Accelerations: present Decelerations: absent Reactive: Yes 29 y.o. at 32w1d a/f preeclampsia with SF On monitor [id number] Contractions: absent I have reviewed NST and instructed RN to take off monitor Pauline Simms MD us Ana M Rogers MD OB GYNE ORDERABLES Fi nal Result * eGFR (09/06/2024 4:31 AM WINDER FIXER) eGFR >90 >=60 mL/min/1. 73 m2 Comment: [...] last reviewed 2021. Blood 09/06/2024 4:31 AM WINDER FIXER 09/06/2024 4:53 AM WINDER FIXER Anastasia Amaro MD LAB BLOOD ORDERABLES Final Result [facility] [place] [address] * (ABNORMAL) CBC without differential (09/06/2024 4:31 AM WINDER FIXER) WBC 10.3(H) 3.8 - 9.9 K/cumm Hgb 11.7(L) 11.9 - 15.5 g/dL [facility] Hct 34.5(L) 35.6 - 45.5 % [facility] Plt 249 150 - 400 K/cumm [facility] MPV 11.1 9.1 - 12.3 fL [facility] RBC 3.96 3.90 - 5.20 M/cumm [facility] MCV 87.1 81.3 - 96.4 fL [facility] MCH 29.5 27.1 - 33.3 pg [facility] MCHC 33.9 32.3 - 35.7 g/dL [facility] RDW CV 13.6 11.1 - 14.9 % [facility] RDW SD 42.7 35.7 - 48.1 fL [facility] NRBC abs 0.00 0.00 - 0.01 K/cumm [facility] Blood 09/06/2024 4:31 AM WINDER FIXER 09/06/2024 4:54 AM WINDER FIXER Anastasia Amaro MD LAB BLOOD ORDERABLES Final Result Performing Organization Address City/[facility]/ZIP Co de Phone Number [facility] Department [place] [address] * Type and screen (09/06/2024 4:31 AM WINDER FIXER) Pathologist [facility] ABO Rh O Negative Abiodun, indirect Negative [facility] Comment:Patient has previous antibody history Blood 09/06/2024 4:31 AM WINDER FIXER 09/06/2024 6:11 AM WINDER FIXER Narrative [facility] - 09/06/2024 7:16 AM WINDER FIXER Has the patient had Daratumumab or Isatuximab in the past 6 months?->Unknown us Anastasia Amaro MD LAB BLOOD BANK TEST ORDERA BLES Final Result [facility] [place] [address] * (ABNORMAL) Comprehensive metabolic panel (09/06/2024 4:31 AM WINDER FIXER) [facility] Sodium 138 135 - 145 mmol/L Potassium, pl 3.6 3.3 - 4.9 mmol/L [facility] Chloride 105 97 - 110 mmol/L [facility] CO2 24 22 - 32 mmol/L [facility] Anion gap 9 2 - 15 mmol/L [facility] BUN 7 6 - 25 mg/dL [facility] Creatinine 0.63 0.60 - 1.10 mg/dL [facility] Glucose 62(L) 70 - 199 mg/dL [facility] Comment: Interpretive Data Fasting glucose [...] 2022. Calcium 9.3 8.5 - 10.3 mg/dL [facility] Bilirubin, total 0.3 0.1 - 1.2 mg/dL [facility] Protein, pl 6.6 6.5 - 8.5 g/dL [facility] Albumin 3.2(L) 3.5 - 5.0 g/dL [facility] Alk phos 118 40 - 130 Units/L [facility] ALT 23 7 - 45 Units/L [facility] AST 22 10 - 45 Units/L [facility] Blood 09/06/2024 4:31 AM WINDER FIXER 09/06/2024 4:53 AM WINDER FIXER us Anastasia Amaro MD LAB BLOOD ORDERABLES Final Result Performing Organization Address City/[facility]/ZIP Co de Phone Number [facility] [place] [address] * Group B streptococcal culture Vaginal/Rectal (09/03/2024 10:29 AM WINDER FIXER) Report Final Report: Negative Vaginal/Rectal 09/03/2024 10 :29 AM WINDER FIXER 09/03/2024 10:47 AM WINDER FIXER Narrative [facility] - 09/07/2024 11:05 AM WINDER FIXER Testing performed by [facility]biology [facility] ([phone]). us Joellen Julio MD LAB MICROBIOLOGY - GENERAL O RDERABLES Final Result Performing Organization Address City/[facility]/ZIP Co de Phone Number [facility] [place] [address] * eGFR (09/03/2024 5:26 AM WINDER FIXER) eGFR >90 >=60 mL/min/1. 73 m2 Comment: [...] last reviewed 2021. Blood 09/03/2024 5:26 AM WINDER FIXER 09/03/2024 5:39 AM WINDER FIXER us Anastasia Amaro MD LAB BLOOD ORDERABLES Final Result [facility] [place] [address] * (ABNORMAL) CBC without differential (09/03/2024 5:26 AM WINDER FIXER) WBC 12.1(H) 3.8 - 9.9 K/cumm Hgb 11.7(L) 11.9 - 15.5 g/dL [facility] Hct 34.0(L) 35.6 - 45.5 % [facility] Plt 273 150 - 400 K/cumm [facility] MPV 11.0 9.1 - 12.3 fL [facility] RBC 3.97 3.90 - 5.20 M/cumm [facility] MCV 85.6 81.3 - 96.4 fL [facility] MCH 29.5 27.1 - 33.3 pg [facility] MCHC 34.4 32.3 - 35.7 g/dL [facility] RDW CV 13.3 11.1 - 14.9 % [facility] RDW SD 41.7 35.7 - 48.1 fL [facility] NRBC abs 0.00 0.00 - 0.01 K/cumm [facility] Blood 09/03/2024 5:26 AM WINDER FIXER 09/03/2024 5:39 AM WINDER FIXER Anastasia Amaro MD LAB BLOOD ORDERABLES Final Result Performing Organization Address [facility] [place] [address] * Type and screen (09/03/2024 5:26 AM WINDER FIXER) Pathologist [facility] Abiodun, indirect Negative Comment:Patient has previous antibody history ABO Rh O Negative [facility] Blood 09/03/2024 5:26 AM WINDER FIXER 09/03/2024 5:32 AM WINDER FIXER Narrative [facility] - 09/03/2024 6:27 AM WINDER FIXER Has the patient had Daratumumab or Isatuximab in the past 6 months?->Unknown Anastasia Amaro MD LAB BLOOD BANK TEST ORDERA BLES Final Result Performing Organization Address [facility] de Phone Number [facility] [place] [address] * (ABNORMAL) Comprehensive metabolic panel (09/03/2024 5:26 AM WINDER FIXER) [facility] Sodium 139 135 - 145 mmol/L Potassium, pl 4.0 3.3 - 4.9 mmol/L [facility] Chloride 105 97 - 110 mmol/L [facility] CO2 20(L) 22 - 32 mmol/L [facility] Anion gap 14 2 - 15 mmol/L [facility] BUN 8 6 - 25 mg/dL [facility] Creatinine 0.55(L) 0.60 - 1.10 mg/dL [facility] Glucose 68(L) 70 - 199 mg/dL [facility] Comment: Interpretive Data Fasting glucose [...] 2022. Calcium 9.3 8.5 - 10.3 mg/dL [facility] Bilirubin, total 0.3 0.1 - 1.2 mg/dL [facility] Protein, pl 6.4(L) 6.5 - 8.5 g/dL [facility] Albumin 3.3(L) 3.5 - 5.0 g/[facility] Alk phos 111 40 - 130 Units/L [facility] ALT 22 7 - 45 Units/L [facility] AST 24 10 - 45 Units/L [facility] Blood 09/03/2024 5:26 AM WINDER FIXER 09/03/2024 5:39 AM WINDER FIXER us Anastasia Amaro MD LAB BLOOD ORDERABLES Final Result Performing Organization Address City/[facility]/ZIP Co de Phone Number [facility] Department [place] [address] * ECG 12 lead (09/02/2024 4:33 PM WINDER FIXER) Ventricular Rate EKG/Min 110 BPM [facility] Atrial Rate 110 BPM [facility] MT-Interval (MSEC) 130 ms [facility] QRS-Interval (MSEC) 82 ms [facility] QT-Interval (MSEC) 340 ms [facility] QTc 460 ms [facility] P [place] 55 degrees [facility] [facility] R [place] 22 degrees [facility] T [place] 30 degrees [facility] Diagnosis Sinus tachycardia Otherwise normal ECG No previous ECGs available Confirmed by SAMANTA KAPLAN M.D ([id number]) on 09/06/2024 2:44:26 PM [facility] 09/02/2024 4:33 PM WINDER FIXER 09/06/2024 2:44 PM WINDER FIXER us Joellen Julio MD ECG ORDERABLES Final Result [facility] * eGFR (08/31/2024 6:20 AM WINDER FIXER) Pathologist [facility] eGFR >90 >=60 [...] last reviewed 2021. Blood 08/31/2024 6:20 AM WINDER FIXER 08/31/2024 7:25 AM WINDER FIXER us Anastasia Amaro MD LAB BLOOD ORDERABLES Final Result [facility] [place] [address] * (ABNORMAL) CBC without differential (08/31/2024 6:20 AM WINDER FIXER) [facility] WBC 10.5(H) 3.8 - 9.9 K/cumm Hgb 11.5(L) 11.9 - 15.5 g/dL [facility] Hct 34.1(L) 35.6 - 45.5 % [facility] Plt 282 150 - 400 K/cumm [facility] MPV 10.9 9.1 - 12.3 fL [facility] RBC 3.93 3.90 - 5.20 M/cumm [facility] MCV 86.8 81.3 - 96.4 fL [facility] MCH 29.3 27.1 - 33.3 pg [facility] MCHC 33.7 32.3 - 35.7 g/dL [facility] RDW CV 13.7 11.1 - 14.9 % [facility] RDW SD 42.6 35.7 - 48.1 fL [facility] NRBC abs 0.00 0.00 - 0.01 K/cumm [facility] Blood 08/31/2024 6:20 AM WINDER FIXER 08/31/2024 7:25 AM WINDER FIXER Anastasia Amaro MD LAB BLOOD ORDERABLES Final Result Performing Organization Address [facility] de Phone Number [facility] [place] [address] * Type and screen (08/31/2024 6:20 AM WINDER FIXER) Pathologist [facility] ABO Rh O Negative Abiodun, indirect Negative [facility] Comment:Patient has previous antibody history Blood 08/31/2024 6:20 AM WINDER FIXER 08/31/2024 7:41 AM WINDER FIXER Narrative [facility] - 08/31/2024 8:26 AM WINDER FIXER Has the patient had Daratumumab or Isatuximab in the past 6 months?->Unknown Anastasia Amaro MD LAB BLOOD BANK TEST ORDERA BLES Final Result Performing Organization Address [facility] de Phone Number [facility] [place] [address] * (ABNORMAL) Comprehensive metabolic panel (08/31/2024 6:20 AM WINDER FIXER) Sodium 137 135 - 145 mmol/L Potassium, pl 3.7 3.3 - 4.9 mmol/L [facility] Chloride 103 97 - 110 mmol/L [facility] CO2 22 22 - 32 mmol/L [facility] Anion gap 12 2 - 15 mmol/L [facility] BUN 6 6 - 25 mg/dL [facility] Creatinine 0.56(L) 0.60 - 1.10 mg/dL [facility] Glucose 70 70 - 199 mg/dL [facility] Comment: Interpretive Data Fasting glucose [...] 2022. Calcium 9.5 8.5 - 10.3 mg/dL [facility] Bilirubin, total 0.2 0.1 - 1.2 mg/dL [facility] Protein, pl 6.4(L) 6.5 - 8.5 g/dL [facility] Albumin 3.2(L) 3.5 - 5.0 g/dL [facility] Alk phos 103 40 - 130 Units/L [facility] ALT 28 7 - 45 Units/L [facility] AST 25 10 - 45 Units/L [facility] Blood 08/31/2024 6:20 AM WINDER FIXER 08/31/2024 7:25 AM WINDER FIXER us Anastasia Amaro MD LAB BLOOD ORDERABLES Final Result [facility] Department [place] [address] * nonstress test (08/29/2024 2:32 PM WINDER FIXER) Narrative Nini Cortez MD - 08/29/2024 2:32 PM WINDER FIXER Maureen Calix MD 08/29/2024 3:38 PM nonstress test Date/Time: 08/29/2024 2:32 PM Performed by: Maureen Calix MD Authorized by: Ana M Rogers MD us Ana M Rogers MD OB GYNE ORDERABLES Fi nal Result * nonstress test (08/28/2024 7:47 PM WINDER FIXER) Narrative Nini Cortez MD - 08/28/2024 7:47 PM WINDER FIXER Francisca Yun MD 08/28/2024 7:48 PM A FHR Baseline: 120 Variability: moderate Reactive: Yes Contractions: absent B FHR Baseline: 130 Variability: moderate Reactive: Yes Contractions: absent Comments: No decels x2 I have reviewed NST and instructed RN to take off monitor Francisca Yun MD us Ana M Rogers MD OB GYNE ORDERABLES Fi nal Result * eGFR (08/28/2024 6:00 AM WINDER FIXER) eGFR >90 >=60 mL/min/1. 73 m2 Comment: [...] last reviewed 2021. Blood 08/28/2024 6:00 AM WINDER FIXER 08/28/2024 6:13 AM WINDER FIXER us Anastasia Amaro MD LAB BLOOD ORDERABLES Final Result [facility] Department [place] [address] * (ABNORMAL) CBC without differential (08/28/2024 6:00 AM WINDER FIXER) Pathologist [facility] WBC 10.3(H) 3.8 - 9.9 K/cumm Hgb 11.2(L) 11.9 - 15.5 g/dL [facility] Hct 33.0(L) 35.6 - 45.5 % [facility] Plt 289 150 - 400 K/cumm [facility] MPV 10.7 9.1 - 12.3 fL [facility] RBC 3.78(L) 3.90 - 5.20 M/cumm [facility] MCV 87.3 81.3 - 96.4 fL [facility] MCH 29.6 27.1 - 33.3 pg [facility] MCHC 33.9 32.3 - 35.7 g/dL [facility] RDW CV 13.7 11.1 - 14.9 % [facility] RDW SD 43.6 35.7 - 48.1 fL [facility] NRBC abs 0.00 0.00 - 0.01 K/cumm [facility] Blood 08/28/2024 6:00 AM WINDER FIXER 08/28/2024 6:20 AM WINDER FIXER us Anastasia Amaro MD LAB BLOOD ORDERABLES Final Result Performing Organization Address [facility] Co de Phone Number [facility] [place] [address] * Type and screen (08/28/2024 6:00 AM WINDER FIXER) [facility] ABO Rh O Negative Comment:Patient has previous antibody history Abiodun, indirect Negative [facility] Blood 08/28/2024 6:00 AM WINDER FIXER 08/28/2024 6:54 AM WINDER FIXER Narrative [facility] - 08/28/2024 7:53 AM WINDER FIXER Has the patient had Daratumumab or Isatuximab in the past 6 months?->Unknown Anastasia Amaro MD LAB BLOOD BANK TEST ORDERA BLES Final Result Performing Organization Address City/[facility]/ZIP Co de Phone Number [facility] [place] [address] * (ABNORMAL) Comprehensive metabolic panel (08/28/2024 6:00 AM WINDER FIXER) Sodium 137 135 - 145 mmol/L Potassium, pl 3.6 3.3 - 4.9 mmol/L [facility] Chloride 105 97 - 110 mmol/L [facility] CO2 21(L) 22 - 32 mmol/L [facility] Anion gap 11 2 - 15 mmol/L [facility] BUN 8 6 - 25 mg/dL [facility] Creatinine 0.52(L) 0.60 - 1.10 mg/dL [facility] Glucose 74 70 - 199 mg/dL [facility] Comment: Interpretive Data Fasting glucose [...] 2022. Calcium 9.3 8.5 - 10.3 mg/dL [facility] Bilirubin, total 0.2 0.1 - 1.2 mg/dL [facility] Protein, pl 6.2(L) 6.5 - 8.5 g/dL [facility] Albumin 3.2(L) 3.5 - 5.0 g/dL [facility] Alk phos 96 40 - 130 Units/L [facility] ALT 25 7 - 45 Units/L [facility] AST 22 10 - 45 Units/L [facility] Blood 08/28/2024 6:00 AM WINDER FIXER 08/28/2024 6:13 AM WINDER FIXER us Anastasia Amaro MD LAB BLOOD ORDERABLES Final Result [facility] Department [place] [address] * eGFR (08/25/2024 6:19 AM WINDER FIXER) [facility] eGFR >90 >=60 mL/min/1. 73 m2 [...] last reviewed 2021. Blood 08/25/2024 6:19 AM WINDER FIXER 08/25/2024 6:33 AM WINDER FIXER Anastasia Amaro MD LAB BLOOD ORDERABLES Final Result [facility] Department [place] [address] * (ABNORMAL) CBC without differential (08/25/2024 6:19 AM WINDER FIXER) [facility] WBC 10.5(H) 3.8 - 9.9 K/cumm Hgb 11.4(L) 11.9 - 15.5 g/dL [facility] Hct 33.4(L) 35.6 - 45.5 % [facility] Plt 299 150 - 400 K/cumm [facility] MPV 10.6 9.1 - 12.3 fL [facility] RBC 3.90 3.90 - 5.20 M/cumm [facility] MCV 85.6 81.3 - 96.4 fL [facility] MCH 29.2 27.1 - 33.3 pg [facility] MCHC 34.1 32.3 - 35.7 g/dL [facility] RDW CV 13.4 11.1 - 14.9 % [facility] RDW SD 41.7 35.7 - 48.1 fL [facility] NRBC abs 0.00 0.00 - 0.01 K/cumm [facility] Blood 08/25/2024 6:19 AM WINDER FIXER 08/25/2024 6:32 AM WINDER FIXER Anastasia Amaro MD LAB BLOOD ORDERABLES Final Result Performing Organization Address [facility] Co de Phone Number [facility] [place] [address] * Type and screen (08/25/2024 6:19 AM WINDER FIXER) [facility] Abiodun, indirect Negative Comment:Patient has previous antibody history ABO Rh O Negative [facility] Blood 08/25/2024 6:19 AM WINDER FIXER 08/25/2024 7:06 AM WINDER FIXER Narrative [facility] - 08/25/2024 8:01 AM WINDER FIXER Has the patient had Daratumumab or Isatuximab in the past 6 months?->Unknown Anastasia Amaro MD LAB BLOOD BANK TEST ORDERA BLES Final Result Performing Organization Address [facility] Co de Phone Number [facility] [place] [address] * (ABNORMAL) Comprehensive metabolic panel (08/25/2024 6:19 AM WINDER FIXER) [facility] Sodium 139 135 - 145 mmol/L Potassium, pl 3.5 3.3 - 4.9 mmol/L [facility] Chloride 105 97 - 110 mmol/L [facility] CO2 22 22 - 32 mmol/L [facility] Anion gap 12 2 - 15 mmol/L [facility] BUN 6 6 - 25 mg/dL [facility] Creatinine 0.53(L) 0.60 - 1.10 mg/dL [facility] Glucose 70 70 - 199 mg/dL [facility] Comment: Interpretive Data Fasting glucose [...] 2022. Calcium 9.2 8.5 - 10.3 mg/dL [facility] Bilirubin, total 0.2 0.1 - 1.2 mg/dL [facility] Protein, pl 6.4(L) 6.5 - 8.5 g/dL [facility] Albumin 3.2(L) 3.5 - 5.0 g/dL [facility] Alk phos 92 40 - 130 Units/L [facility] ALT 22 7 - 45 Units/L [facility] AST 22 10 - 45 Units/L [facility] Blood 08/25/2024 6:19 AM WINDER FIXER 08/25/2024 6:33 AM WINDER FIXER us Anastasia Amaro MD LAB BLOOD ORDERABLES Final Result [facility] Department [place] [address] * US Ob Follow Up (08/24/2024 9:37 AM WINDER FIXER) Fetus# Fetus1 VIEWPOINT Estimated Weight 1,348 g&grams VIEWPOINT Placenta Details anterior VIEWPOINT Presentation Vertex; Maternal right- low VIEWPOINT Fetus# Fetus2 VIEWPOINT Estimated Weight 1,784 g&grams VIEWPOINT Placenta Details anterior VIEWPOINT Presentation Vertex; Maternal left- high (presenting) VIEWPOINT Anatomical Region Laterality Modality Abdomen N/A Ultrasound 08/24/2024 9:37 AM WINDER FIXER Impressions 08/24/2024 2:06 PM WINDER FIXER 1. Presumed Mo/Di twin IUP at 30w [...] Edite d * eGFR (08/22/2024 6:02 AM WINDER FIXER) eGFR >90 >=60 mL/min/1. 73 m2 Comment: [...] last reviewed 2021. Blood 08/22/2024 6:02 AM WINDER FIXER 08/22/2024 6:18 AM WINDER FIXER us Anastasia Amaro MD LAB BLOOD ORDERABLES Final Result [facility] Department [place] [address] * (ABNORMAL) CBC without differential (08/22/2024 6:02 AM WINDER FIXER) [facility] WBC 12.2(H) 3.8 - 9.9 K/cumm Hgb 11.8(L) 11.9 - 15.5 g/dL [facility] Hct 34.4(L) 35.6 - 45.5 % [facility] Plt 277 150 - 400 K/cumm [facility] MPV 10.4 9.1 - 12.3 fL [facility] RBC 4.02 3.90 - 5.20 M/cumm [facility] MCV 85.6 81.3 - 96.4 fL [facility] MCH 29.4 27.1 - 33.3 pg [facility] MCHC 34.3 32.3 - 35.7 g/dL [facility] RDW CV 13.6 11.1 - 14.9 % [facility] RDW SD 42.4 35.7 - 48.1 fL [facility] NRBC abs 0.00 0.00 - 0.01 K/cumm [facility] Blood 08/22/2024 6:02 AM WINDER FIXER 08/22/2024 6:18 AM WINDER FIXER Anastasia Amaro MD LAB BLOOD ORDERABLES Final Result Performing Organization Address [facility] de Phone Number [facility] [place] [address] * Type and screen (08/22/2024 6:02 AM WINDER FIXER) [facility] Abiodun, indirect Negative Comment:Patient has previous antibody history ABO Rh O Negative [facility] Blood 08/22/2024 6:02 AM WINDER FIXER 08/22/2024 6:24 AM WINDER FIXER Narrative [facility] - 08/22/2024 7:25 AM WINDER FIXER Has the patient had Daratumumab or Isatuximab in the past 6 months?->Unknown Anastasia Amaro MD LAB BLOOD BANK TEST ORDERA BLES Final Result Performing Organization Address [facility] de Phone Number [facility] [place] [address] * (ABNORMAL) Comprehensive metabolic panel (08/22/2024 6:02 AM WINDER FIXER) [facility] Sodium 138 135 - 145 mmol/L Potassium, pl 3.7 3.3 - 4.9 mmol/L [facility] Chloride 104 97 - 110 mmol/L [facility] CO2 23 22 - 32 mmol/L [facility] Anion gap 11 2 - 15 mmol/L [facility] BUN 7 6 - 25 mg/dL [facility] Creatinine 0.53(L) 0.60 - 1.10 mg/dL [facility] Glucose 72 70 - 199 mg/dL [facility] Comment: Interpretive Data Fasting glucose [...] 8.5 - 10.3 mg/dL [facility] Bilirubin, total 0.2 0.1 - 1.2 mg/dL [facility] Protein, pl 6.6 6.5 - 8.5 g/dL [facility] Albumin 3.2(L) 3.5 - 5.0 g/dL [facility] Alk phos 90 40 - 130 Units/L [facility] ALT 19 7 - 45 Units/L [facility] AST 18 10 - 45 Units/L [facility] Blood 08/22/2024 6:02 AM WINDER FIXER 08/22/2024 6:18 AM WINDER FIXER Anastasia Amaro MD LAB BLOOD ORDERABLES Final Result [facility] [place] [address] * eGFR (08/19/2024 6:25 AM WINDER FIXER) eGFR >90 >=60 mL/min/1. 73 m2 Comment: [...] last reviewed 2021. Blood 08/19/2024 6:25 AM WINDER FIXER 08/19/2024 7:23 AM WINDER FIXER us Anastasia Amaro MD LAB BLOOD ORDERABLES Final Result Performing Organization Address City/[facility]/ZIP Co de Phone Number [facility] [place] [address] * (ABNORMAL) CBC without differential (08/19/2024 6:25 AM WINDER FIXER) WBC 11.2(H) 3.8 - 9.9 K/cumm Hgb 11.3(L) 11.9 - 15.5 g/dL [facility] Hct 33.9(L) 35.6 - 45.5 % [facility] Plt 249 150 - 400 K/cumm [facility] MPV 10.6 9.1 - 12.3 fL [facility] RBC 3.89(L) 3.90 - 5.20 M/cumm [facility] MCV 87.1 81.3 - 96.4 fL [facility] MCH 29.0 27.1 - 33.3 pg [facility] MCHC 33.3 32.3 - 35.7 g/dL [facility] RDW CV 13.4 11.1 - 14.9 % [facility] RDW SD 42.5 35.7 - 48.1 fL [facility] NRBC abs 0.00 0.00 - 0.01 K/cumm [facility] Blood 08/19/2024 6:25 AM WINDER FIXER 08/19/2024 7:23 AM WINDER FIXER us Anastasia Amaro MD LAB BLOOD ORDERABLES Final Result Performing Organization Address City/[facility]/ZIP Co de Phone Number [facility] [place] [address] * Type and screen (08/19/2024 6:25 AM WINDER FIXER) Pathologist [facility] Abiodun, indirect Negative ABO Rh O Negative [facility] Comment:Patient has previous antibody history Blood 08/19/2024 6:25 AM WINDER FIXER 08/19/2024 7:31 AM WINDER FIXER Narrative [facility] - 08/19/2024 8:22 AM WINDER FIXER Has the patient had Daratumumab or Isatuximab in the past 6 months?->Unknown us Anastasia Amaro MD LAB BLOOD BANK TEST ORDERA BLES Final Result [facility] [place] [address] * (ABNORMAL) Comprehensive metabolic panel (08/19/2024 6:25 AM WINDER FIXER) [facility] Sodium 138 135 - 145 mmol/L Potassium, pl 3.7 3.3 - 4.9 mmol/L [facility] Chloride 105 97 - 110 mmol/L [facility] CO2 23 22 - 32 mmol/L [facility] Anion gap 10 2 - 15 mmol/L [facility] BUN 7 6 - 25 mg/dL [facility] Creatinine 0.54(L) 0.60 - 1.10 mg/dL [facility] Glucose 68(L) 70 - 199 mg/dL [facility] Comment: Interpretive Data Fasting glucose [...] 2022. Calcium 9.3 8.5 - 10.3 mg/dL [facility] Bilirubin, total 0.2 0.1 - 1.2 mg/dL [facility] Protein, pl 6.3(L) 6.5 - 8.5 g/dL [facility] Albumin 3.0(L) 3.5 - 5.0 g/dL [facility] Alk phos 88 40 - 130 Units/L [facility] ALT 13 7 - 45 Units/L [facility] AST 18 10 - 45 Units/L [facility] Blood 08/19/2024 6:25 AM WINDER FIXER 08/19/2024 7:23 AM WINDER FIXER us Anastasia Amaro MD LAB BLOOD ORDERABLES Final Result [facility] [place] [address] * US Ob Limited (08/16/2024 8:35 AM WINDER FIXER) Fetus# Fetus1 VIEWPOINT Placenta Details anterior VIEWPOINT Presentation Transverse, maternal right-low VIEWPOINT Fetus# Fetus2 VIEWPOINT Placenta Details anterior VIEWPOINT Presentation Vertex; Maternal left- high VIEWPOINT Anatomical Region Laterality Modality Abdomen N/A Ultrasound 08/16/2024 8:36 AM WINDER FIXER Impressions 08/16/2024 2:23 PM WINDER FIXER Diamniotic (presumed MCDA) TIUP at 29w1d who is admitted for preE with severe features who presents for TTTS screen.Chorionicity was not fully assessed but was previously determined to be monochorionic by the [facility] practice. Anatomic surveys were also completed [...] previously determined to be monochorionic by the [facility] MFM[facility]. Anatomic surveys were also completed there. [...] Result * Antibody identification (08/16/2024 7:34 AM WINDER FIXER) Antibody ID 1 Passive Anti-D Blood 08/16/2024 7:34 AM WINDER FIXER 08/16/2024 7:34 AM WINDER FIXER us Anastasia Amaro MD LAB BLOOD BANK TEST ORDERA BLES Final Result [facility] [place] [address] * eGFR (08/16/2024 6:15 AM WINDER FIXER) eGFR >90 >=60 mL/min/1. 73 m2 Comment: [...] last reviewed 2021. Blood 08/16/2024 6:15 AM WINDER FIXER 08/16/2024 6:29 AM WINDER FIXER Anastasia Amaro MD LAB BLOOD ORDERABLES Final Result [facility] [place] [address] * Thyroid Function [place] (08/16/2024 6:15 AM WINDER FIXER) [facility] TSH 3.83 0.30 - 4.20 mcIUnit/mL Blood 08/16/2024 6:15 AM WINDER FIXER 08/16/2024 6:29 AM WINDER FIXER us Anastasia Amaro MD LAB BLOOD ORDERABLES Final Result Performing Organization Address City/[facility]/ZIP Co de Phone Number [facility] [place] [address] * (ABNORMAL) CBC without differential (08/16/2024 6:15 AM WINDER FIXER) [facility] WBC 10.9(H) 3.8 - 9.9 K/cumm Hgb 11.6(L) 11.9 - 15.5 g/dL [facility] Hct 34.0(L) 35.6 - 45.5 % [facility] Plt 257 150 - 400 K/cumm [facility] MPV 10.4 9.1 - 12.3 fL [facility] RBC 3.95 3.90 - 5.20 M/cumm [facility] MCV 86.1 81.3 - 96.4 fL [facility] MCH 29.4 27.1 - 33.3 pg [facility] MCHC 34.1 32.3 - 35.7 g/dL [facility] RDW CV 13.3 11.1 - 14.9 % [facility] RDW SD 41.5 35.7 - 48.1 fL [facility] NRBC abs 0.00 0.00 - 0.01 K/cumm [facility] Blood 08/16/2024 6:15 AM WINDER FIXER 08/16/2024 6:30 AM WINDER FIXER Anastasia Amaro MD LAB BLOOD ORDERABLES Final Result Performing Organization Address City/[facility] Co de Phone Number [facility] [place] [address] * (ABNORMAL) Type and screen (08/16/2024 6:15 AM WINDER FIXER) [facility] Abiodun, indirect Positive(A) ABO Rh O Negative [facility] Blood 08/16/2024 6:15 AM WINDER FIXER 08/16/2024 6:25 AM WINDER FIXER Narrative [facility] - 08/16/2024 7:34 AM WINDER FIXER Has the patient had Daratumumab or Isatuximab in the past 6 months?->Unknown Anastasia Amaro MD LAB BLOOD BANK TEST ORDERA BLES Final Result Performing Organization Address [facility]/ZIP Co de Phone Number [facility] [place] [address] * (ABNORMAL) Comprehensive metabolic panel (08/16/2024 6:15 AM WINDER FIXER) [facility] Sodium 139 135 - 145 mmol/L Potassium, pl 3.4 3.3 - 4.9 mmol/L [facility] Chloride 105 97 - 110 mmol/L [facility] CO2 23 22 - 32 mmol/L [facility] Anion gap 11 2 - 15 mmol/L [facility] BUN 8 6 - 25 mg/dL [facility] Creatinine 0.51(L) 0.60 - 1.10 mg/dL [facility] Glucose 72 70 - 199 mg/dL [facility] Comment: Interpretive Data Fasting glucose [...] 2022. Calcium 9.2 8.5 - 10.3 mg/dL [facility] Bilirubin, total 0.2 0.1 - 1.2 mg/dL [facility] Protein, pl 6.4(L) 6.5 - 8.5 g/dL [facility] Albumin 3.2(L) 3.5 - 5.0 g/dL [facility] Alk phos 86 40 - 130 Units/L [facility] ALT 16 7 - 45 Units/L [facility] AST 16 10 - 45 Units/L [facility] Blood 08/16/2024 6:15 AM [facility] 08/16/2024 6:29 AM WINDER FIXER Anastasia Amaro MD LAB BLOOD ORDERABLES Final Result Performing Organization Address City/State/[facility] [place] [facility] Department [place] [address] * Hepatitis C antibody Blood (05/20/2024 2:47 [...] Final Result Performing Organization Address City/[place] [phone] [place] [address] from Last 3 Months or Most Recently Relevant to Health Maintenance Insurance [employer] [facility] EXCHANGE [place] [employer] [place] Advance Directives For more information, please contact: [phone] * Full Code (Latest Code Status on File) Date Activated Date Inactivated Comments 09/19/2024 4:34 PM 09/22/2024 3:32 PM * Full Code Date Activated Date Inactivated Comments 07/29/2024 3:05 AM 09/19/2024 4:34 PM 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
--- OUTSIDE RECORDS SUMMARY | 2024-11-15 15:27 | XMS_ITS | Encounter Summary ---
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 difficile 10/20/2018 10/20/2018 documented as of this encounter
--- OUTSIDE RECORDS SUMMARY | 2024-11-15 15:27 | XMS_ITS | Clinical Summary ---
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 difficile 10/20/2018 10/20/2018 Insurance [facility] MEDICAID
--- OUTSIDE RECORDS SUMMARY | 2024-11-15 15:27 | XMS_ITS | Clinical Summary ---
Author Organization [facility] Address [address] [place] [address] Care Team Providers Care R D Manager Name Role Phone No, Physician Primary Care Provider [phone] Allergies No known active allergies Medications acetaminophen [...] sertraline (ZOLOFT) 50 mg tablet 10/25/19 Active no115/iron/foli c acid ( ORAL) Take by mouth Discontinu ed(Therapy completed) ibuprofen (ADVIL,MOTRIN) 600 mg [...] for 7 days 28 capsule 10/16/19 25 Active Problems Problem Noted Date Diagnosed Date [...] Blood pressures well controlled on N120XL and K120DOB. CBC/CMP WNL, UPC 0.1. Enrolled in remote [...] # Disposition: Follow up task sent to [facility] scheduling pool for appointments in 2 and 6 weeks. They are enrolled in remote blood pressure monitoring for their BP check. Desires discharge home today. Service Coverage These phones are service phones and carried 27/04 in house: R1 (first call) [phone] R1 alt (second call) [phone] R4 (Chief) [phone] 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 08/29/2024 [...] Blood pressures well controlled on N120XL and D311WHT. Magnesium for seizure prophylaxis. #sinus tachycardia, intermittent: [...] found out that that would be in [place] he used an expletive to express that they would not be doing that Resolved Problems Problem Noted Date Diagnosed Date Resolved Date Abdominal pain 07/06/2012 04/15/2024 Encounters Date Type Department Care Team Description 11/04/2024 Telephone Psychiatry James Rojas MD Reminder of Appointment 11/03/2024 4:37 PM PLANER OPERATOR / GRADER - 11/03/2024 11:59 PM PLANER OPERATOR / GRADER Hospital Encounter [address] [address] Encounter for routine follow-up Discharge Disposition: Discharge to home or self care 11/03/2024 1:40 PM PLANER OPERATOR / GRADER Office Visit [facility] Maternal- Medicine [address] [place] [address] Outpatient [facility] 7th Floor [address] [place] [phone] Encounter for routine follow-up (Primary Dx) 10/28/2024 [place] [address] Nancy Noel, LEO [facility] Brief Therapeutic Intervention 10/20/2024 1:00 PM PLANER OPERATOR / GRADER Office Visit [facility] Maternal- Medicine [address] [place] [address] Outpatient [facility] 7th Floor [address] [place] [phone] care following delivery (Primary Dx) 10/20/2024 Orders Only [facility] Maternal- Medicine [address] [place] [address] 7th Floor [address] [place] [address] Gracy Hicks, institutional nutrition consultant care following delivery (Primary Dx); Preeclampsia, unspecified trimester 10/18/2024 1:00 PM PLANER OPERATOR / [place] [phone] Nancy Noel, LEO Generalized anxiety disorder (Primary Dx) 10/16/2024 9:30 AM PLANER OPERATOR / GRADER - 10/16/2024 2:10 PM PLANER OPERATOR / GRADER Emergency [facility] Emergency Department [address] [place] [address] Satnam Nair MD Secondary hypertension (Primary Dx) Discharge Disposition: Discharge to home or self care 10/07/2024 Telephone [facility] [place] [address] Nancy Noel, [facility] Initial Contact 09/30/2024 Encounter [facility] [address] [place] [address] 09/25/2024 Encounter [facility] [address] [place] [address] 09/19/2024 1:57 PM PLANER OPERATOR / GRADER Anesthesia Event [address] [address] Sidra Ann MD Bailey, Cody Allen, MD 09/19/2024 1:30 PM PLANER OPERATOR / GRADER - 09/19/2024 4:05 PM PLANER OPERATOR / GRADER Surgery [address] [address] Josefina Peter MD SECTION 09/15/2024 9:00 AM PLANER OPERATOR / GRADER Ancillary Procedure [address] [address] 09/08/2024 10:00 AM PLANER OPERATOR / GRADER Ancillary Procedure [address] [address] 08/24/2024 12:30 PM PLANER OPERATOR / GRADER Ancillary Procedure [address] [address] 08/16/2024 8:15 AM PLANER OPERATOR / GRADER Ancillary Procedure [address] [address] 07/29/2024 2:42 AM CDT - 09/22/2024 11:26 AM PLANER OPERATOR / GRADER Hospital Encounter [address] [address] Anastasia Amaro MD Bligard, Katherine Hollister, MD Burd, Julia Ellen, MD Goodman, Bree Ann, MD [...] Grandmother Cancer Neg Hx no colon or tipple supervisor cmt 04/15/24 Relation Name Status Comments Brother Father Maternal Grandfather Maternal Grandmother Mother Other 1 Other 2 Other 3 Other 4 Paternal Grandfather Paternal Grandmother Social History Tobacco Use Types Packs/Day Years Used Date Smoking Tobacco: Never Smokeless Tobacco: Never Tobacco Cessation:Counseling Given: Not Answered [facility] Utilities Answer Date Recorded In the past 12 months has e [employer], oil, or water [employer] Website threatened to shut off services in your [...] often do you attend chur ch or restorationism services? Never 07/29/2024 Do you belong to any clubs o r organizations such as orthodox groups, unions, fraternal or athletic groups, [...] should administer the PHQ-9) 0 07/28/2024 [facility] - [...] things needed for daily living? No 07/29/2024 Chester Depression Scale Answer Date Recorded [place] Depression Scale Total 21 10/20/2024 The thought [...] time in the past 12 m [facility], were you homeless or living [...] on file Legal Sex Female 2:19 AM PLANER OPERATOR / GRADER Gender Identity Not on file Sexual Orientation [...] ral N Livin g 9 9 Regino Wilver Bolden, Masood er Renee burns MD Complications:None Delivery Location:[facility] ([facility] L AND D PROCEDURE) 2023 34w 0d 0h 03m 0h 03m 1.92 kg (4 lb 3.7 oz) M C-Sec tion Combin ed Spinal /Epidu ral N Livin g 8 9 Morales Bolden, Sodus rose burns MD Complications:None Delivery Location:[facility] Main C ampus ([facility] L [facility] D PROCEDURE) Last Filed Vital Signs Vital Sign Reading Time Taken Comments Blood Pressure 120/81 11/03/2024 1:53 PM PLANER OPERATOR / GRADER Pulse 116 11/03/2024 1:53 PM PLANER OPERATOR / GRADER Temperature 35.9 C (96.7 F) 10/16/2024 9:28 AM PLANER OPERATOR / GRADER Respiratory Rate 18 10/16/2024 11:0 0 AM PLANER OPERATOR / GRADER Oxygen Saturation 97% 11/03/2024 1:53 PM PLANER OPERATOR / GRADER Inhaled Oxygen Concentration - - Weight 111.5 kg (245 lb 12.8 oz) 11/03/2024 1:53 PM PLANER OPERATOR / GRADER Height 167.6 cm (5' 6 ) 10/16/2024 9:28 AM PLANER OPERATOR / GRADER Body Mass Index 39.67 10/16/2024 9:28 AM PLANER OPERATOR / GRADER Plan of Treatment Health Maintenance Due Date [...] HIGH RISK HPV Routine 11/03/2024 4:37 PM PLANER OPERATOR / GRADER Encounter for routine follow-up THINPREP PROCESSING (MOLECULAR COMPONENT) Routine 11/03/2024 4:37 PM PLANER OPERATOR / GRADER Encounter for routine follow-up URINALYSIS, MICROSCOPIC ONLY STAT 10/16/2024 11:21 AM PLANER OPERATOR / GRADER URINE CULTURE STAT 10/16/2024 11:21 AM PLANER OPERATOR / GRADER URINALYSIS AND REFLEX TO MICROSCOPIC AND CULTURE STAT 10/16/2024 11:21 AM PLANER OPERATOR / GRADER ECG 12-LEAD STAT 10/16/2024 10:36 AM PLANER OPERATOR / GRADER EGFR Add On 10/16/2024 9:47 AM PLANER OPERATOR / GRADER DIFFERENTIAL AUTO Add On 10/16/2024 9:4 7 AM PLANER OPERATOR / GRADER COMPREHENSIVE METABOLIC PANEL Add-On 10/16/2024 9:47 AM PLANER OPERATOR / GRADER CBC WITH AUTO DIFFERENTIAL Add-On 10/16/2024 9:47 AM PLANER OPERATOR / GRADER BLEED SCREEN Timed 09/20/2024 4: 48 AM PLANER OPERATOR / GRADER ABO/RH Timed 09/20/2024 4:48 AM PLANER OPERATOR / GRADER CBC WITHOUT DIFFERENTIAL Routine 09/20/2024 4:48 AM PLANER OPERATOR / GRADER RH IMMUNE GLOBULIN EVAL Timed 09/20/2024 4:48 AM PLANER OPERATOR / GRADER SURGICAL PATHOLOGY Routine 09/19/2024 4: 06 PM PLANER OPERATOR / GRADER ANESTHESIA EPIDURAL BLOCK Routine 09/19/2024 2:45 PM PLANER OPERATOR / GRADER SECTION 09/19/2024 1:56 PM PLANER OPERATOR / GRADER TIUP Case Notes PreE w/ SF and Multiple gestation EGFR Timed 09/18/2024 6:21 AM PLANER OPERATOR / GRADER COMPREHENSIVE METABOLIC PANEL Timed 09/18/2024 6:21 AM PLANER OPERATOR / GRADER CBC WITHOUT DIFFERENTIAL Timed 09/18/2024 6:21 AM PLANER OPERATOR / GRADER TYPE AND SCREEN Timed 09/18/2024 6:21 AM PLANER OPERATOR / GRADER NONSTRESS TEST Routine 09/17/2024 2:58 PM PLANER OPERATOR / GRADER Preeclampsia, unspecified trimester 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 US OB FOLLOW UP IP Routine 09/15/2024 1:08 PM PLANER OPERATOR / GRADER EGFR Timed 09/15/2024 6:17 AM PLANER OPERATOR / GRADER COMPREHENSIVE METABOLIC PANEL Timed 09/15/2024 6:17 AM PLANER OPERATOR / GRADER CBC WITHOUT DIFFERENTIAL Timed 09/15/2024 6:17 AM PLANER OPERATOR / GRADER TYPE AND SCREEN Timed 09/15/2024 6:17 AM PLANER OPERATOR / GRADER NONSTRESS TEST Routine 09/13/2024 5:10 PM PLANER OPERATOR / GRADER Preeclampsia, unspecified trimester 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 EGFR Timed 09/12/2024 6:35 AM PLANER OPERATOR / GRADER COMPREHENSIVE METABOLIC PANEL Timed 09/12/2024 6:35 AM PLANER OPERATOR / GRADER CBC WITHOUT DIFFERENTIAL Timed 09/12/2024 6:35 AM PLANER OPERATOR / GRADER TYPE AND SCREEN Timed 09/12/2024 6:35 AM PLANER OPERATOR / GRADER EGFR Timed 09/09/2024 6:24 AM PLANER OPERATOR / GRADER COMPREHENSIVE METABOLIC PANEL Timed 09/09/2024 6:24 AM PLANER OPERATOR / GRADER CBC WITHOUT DIFFERENTIAL Timed 09/09/2024 6:24 AM PLANER OPERATOR / GRADER TYPE AND SCREEN Timed 09/09/2024 6:24 AM PLANER OPERATOR / GRADER US OB LIMITED IP Routine 09/08/2024 10:29 AM PLANER OPERATOR / GRADER NONSTRESS TEST Routine 09/06/2024 8:38 PM PLANER OPERATOR / GRADER Preeclampsia, unspecified trimester 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 EGFR Timed 09/06/2024 4:31 AM PLANER OPERATOR / GRADER COMPREHENSIVE METABOLIC PANEL Timed 09/06/2024 4:31 AM PLANER OPERATOR / GRADER CBC WITHOUT DIFFERENTIAL Timed 09/06/2024 4:31 AM PLANER OPERATOR / GRADER TYPE AND SCREEN Timed 09/06/2024 4:31 AM PLANER OPERATOR / GRADER GROUP B STREPTOCOCCUS CULTURE Routine 09/03/2024 10:29 AM PLANER OPERATOR / GRADER EGFR Timed 09/03/2024 5:26 AM PLANER OPERATOR / GRADER COMPREHENSIVE METABOLIC PANEL Timed 09/03/2024 5:26 AM PLANER OPERATOR / GRADER CBC WITHOUT DIFFERENTIAL Timed 09/03/2024 5:26 AM PLANER OPERATOR / GRADER TYPE AND SCREEN Timed 09/03/2024 5:26 AM PLANER OPERATOR / GRADER ECG 12-LEAD Routine 09/02/2024 4:33 PM PLANER OPERATOR / GRADER EGFR Timed 08/31/2024 6:20 AM PLANER OPERATOR / GRADER COMPREHENSIVE METABOLIC PANEL Timed 08/31/2024 6:20 AM PLANER OPERATOR / GRADER CBC WITHOUT DIFFERENTIAL Timed 08/31/2024 6:20 AM PLANER OPERATOR / GRADER TYPE AND SCREEN Timed 08/31/2024 6:20 AM PLANER OPERATOR / GRADER NONSTRESS TEST Routine 08/29/2024 2:32 PM PLANER OPERATOR / GRADER Preeclampsia, unspecified trimester 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 NONSTRESS TEST Routine 08/28/2024 7:47 PM PLANER OPERATOR / GRADER Preeclampsia, unspecified trimester 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 EGFR Timed 08/28/2024 6:00 AM PLANER OPERATOR / GRADER COMPREHENSIVE METABOLIC PANEL Timed 08/28/2024 6:00 AM PLANER OPERATOR / GRADER CBC WITHOUT DIFFERENTIAL Timed 08/28/2024 6:00 AM PLANER OPERATOR / GRADER TYPE AND SCREEN Timed 08/28/2024 6:00 AM PLANER OPERATOR / GRADER EGFR Timed 08/25/2024 6:19 AM PLANER OPERATOR / GRADER COMPREHENSIVE METABOLIC PANEL Timed 08/25/2024 6:19 AM PLANER OPERATOR / GRADER CBC WITHOUT DIFFERENTIAL Timed 08/25/2024 6:19 AM PLANER OPERATOR / GRADER TYPE AND SCREEN Timed 08/25/2024 6:19 AM PLANER OPERATOR / GRADER US OB FOLLOW UP IP Routine 08/24/2024 9:37 AM PLANER OPERATOR / GRADER EGFR Timed 08/22/2024 6:02 AM PLANER OPERATOR / GRADER COMPREHENSIVE METABOLIC PANEL Timed 08/22/2024 6:02 AM PLANER OPERATOR / GRADER CBC WITHOUT DIFFERENTIAL Timed 08/22/2024 6:02 AM PLANER OPERATOR / GRADER TYPE AND SCREEN Timed 08/22/2024 6:02 AM PLANER OPERATOR / GRADER EGFR Timed 08/19/2024 6:25 AM PLANER OPERATOR / GRADER COMPREHENSIVE METABOLIC PANEL Timed 08/19/2024 6:25 AM PLANER OPERATOR / GRADER CBC WITHOUT DIFFERENTIAL Timed 08/19/2024 6:25 AM PLANER OPERATOR / GRADER TYPE AND SCREEN Timed 08/19/2024 6:25 AM PLANER OPERATOR / GRADER US OB LIMITED IP Routine 08/16/2024 8:35 AM PLANER OPERATOR / GRADER ANTIBODY IDENTIFICATION Routine 08/16/2024 7:34 AM PLANER OPERATOR / GRADER EGFR Timed 08/16/2024 6:15 AM PLANER OPERATOR / GRADER THYROID FUNCTION CASCADE Routine 08/16/2024 6:15 AM PLANER OPERATOR / GRADER COMPREHENSIVE METABOLIC PANEL Timed 08/16/2024 6:15 AM PLANER OPERATOR / GRADER CBC WITHOUT DIFFERENTIAL Timed 08/16/2024 6:15 AM PLANER OPERATOR / GRADER TYPE AND SCREEN Timed 08/16/2024 6:15 AM PLANER OPERATOR / GRADER HEPATITIS C ANTIBODY Routine 05/20/2024 2:47 PM CDT Encounter for supervision of normal first in first trimester 11 weeks gestation of from Last 3 Months or Most Recently Relevant to Health Maintenance Results * ThinPrep processing (Molecular component) (11/03/2024 4:37 PM PLANER OPERATOR / GRADER) ThinPrep processing (Molecular component) Specimen received for processing. [facility] Endocervical 11/03/2024 4:37 PM PLANER OPERATOR / GRADER 11/07/2024 8:41 AM PLANER OPERATOR / GRADER us Jada Ngo NP LAB BODY FLUIDS AND STOOLS ORDERABLES Final Result BIA [facility] Department [place] [address] [facility] * Pap with reflex to High Risk HPV and Genotyping (Cytology Component) (11/03/2024 4:37 PM PLANER OPERATOR / GRADER) Thin prep (Pap test) 11/03/2024 4:37 PM PLANER OPERATOR / GRADER 11/03/2024 5:54 PM PLANER OPERATOR / GRADER Narrative PATHOLOGY [facility] - 11/11/2024 3:38 PM PLANER OPERATOR / GRADER EPIC results best viewed via link to PDF [facility] Nicole Brown Laboratory [place] [address] Note to Patients: This report may contain [...] Gender: F : 1995 (Age: 29) Address: [address] [place] [address] [facility] #: [id number] Service: TETRYL NITRATOR OPERATOR Location: Patient Type: [facility] SPECIMEN Taken: 11/03/2024 Received: 11/03/2024 Accessioned: 11/07/2024 Reported: 11/11/2024 Physician(s): CORBY Billings FINAL INTERPRETATION SOURCE OF SPECIMEN Liquid based Thin Prep pap with Reflex HPV: STATEMENT OF ADEQUACY - Satisfactory for evaluation - Endocervical cells/transformation zone sample absent GENERAL CATEGORIZATION: - Negative for squamous intraepithelial lesion or malignancy [facility]/11/11/2024 15:38 SHANTEL Ely MS(ASCP)FREDRICK Report Electronically Reviewed [...] and histologic results be correlated for laboratory type disk quality control supervisor & improvement standards. FOR ALL HIGH-GRADE CASES [...] determined by the Surgical Pathology Department at [facility] as part of an ongoing quality assurance engineer program and in compliance with federally mandated [...] determined by the Surgical Pathology Department of [facility]. It has not been cleared or approved by the U. S. Food and Drug Administration. Jada Ngo [employer] LAB CYTOLOGY ORDERA BLES Final Result PATHOLOGY [facility] 3rd Floor [place], [place] [phone] * (ABNORMAL) Urinalysis reflex to microscopic and culture Urine (10/16/2024 11:21 AM PLANER OPERATOR / GRADER) Color, ur Yellow Yellow Clarity, ur Clear Clear [facility] ([place]) Specific gravity, ur 1.020 [...] tendency for uric acid stone formation. Source: [facility] [employer] Current Interpretive Data was last revised on 2017 Protein, ur ql 1+(A) Negative [facility] ([place]) Glucose, ur ql Negative Negative [facility] ([place]) Ketones, ur 1+(A) Negative [facility] ([place]) Bilirubin, ur Negative Negative [facility] ([place]) Blood, ur 3+(A) Negative [facility] ([place]) Urobilinogen, ur <2.0 <2.0 mg/dL [facility] ([place]) Nitrite, ur Negative Negative [facility] ([place]) Leukocyte esterase, ur 3+(A) Negative [facility] ([place]) UA reflex comment Reflex to microscopic UA will be performed. [facility] ([place]) Urine 10/16/2024 11:2 1 AM PLANER OPERATOR / GRADER 10/16/2024 11:23 AM PLANER OPERATOR / GRADER Satnam Nair MD LAB MICROBIOLOGY - GENERAL O RDERABLES Final Result BIA [facility] ([place]) 1 [facility] Department [place] [address] * (ABNORMAL) Urinalysis, microscopic only (10/16/2024 11:21 AM PLANER OPERATOR / GRADER) WBC, ur 11-20(A) 0 - 5 /HPF RBC, ur >50(A) 0 - 2 /HPF [facility] ([place]) Epithelial cells, squamous, ur 1-5 0 - 5 /HPF [facility] ([place]) Bacteria, ur Trace(A) [facility] ([place]) Mucous, ur Present(A) [facility] ([place]) Culture Reflex Comment Reflex to urine culture will be performed. [facility] ([place]) Urine 10/16/2024 11:2 1 AM PLANER OPERATOR / GRADER 10/16/2024 11:23 AM PLANER OPERATOR / GRADER Satnam Nair MD LAB URINE ORDERABLES Final R esult Performing Organization Address [facility] Co de Phone Number BIA [facility]) [address] [place] [address] [place] [address] * Urine culture Urine (10/16/2024 11:21 AM PLANER OPERATOR / GRADER) Report Final Report: Less than 100,000 colonies/mL (clinically insignificant growth based on current clinical standards) Comment:Testing performed by : [facility], [address] [place] [place] [address] Organism (CLINICALLY INSIGNIFICANT GROWTH BIA [facility] ([place]) Urine 10/16/2024 11:2 1 AM PLANER OPERATOR / GRADER 10/16/2024 2:00 PM PLANER OPERATOR / GRADER Narrative [facility] ([place]) - 10/17/2024 3:36 PM PLANER OPERATOR / GRADER Urine culture reflexed based upon urinalysis results. Testing performed by [facility] Microbiology Laboratory ([phone]) Satnam Nair MD LAB MICROBIOLOGY - GENERAL O RDERABLES Final Result Performing Organization Address [facility] de Phone Number BIA [facility] ([place]) [address] [place] [address] [place] [address] * ECG 12 lead (10/16/2024 10:36 AM PLANER OPERATOR / GRADER) 10/16/2024 10:3 6 AM PLANER OPERATOR / GRADER Narrative [facility] - 10/17/2024 8:41 AM PLANER OPERATOR / GRADER Vent Rate: 65 bpm RR Interval: 922 msec LA Interval: 147 msec QRS Duration: 101 msec QT Interval: 408 msec QTC Interval: 419 msec P-R-T [place]: 54 - 21 - 47 degrees IMPRESSION: SINUS RHYTHM NORMAL ECG Electronically Signed By: Dallas Ahn MD Satnam Nair MD ECG ORDERABLES Final Result Performing Organization Address [facility] Co de Phone Number [facility] * eGFR (10/16/2024 9:47 AM PLANER OPERATOR / GRADER) eGFR >90 >=60 mL/min/1. 73 m2 Comment: [...] last reviewed 2021. Blood 10/16/2024 9:47 AM PLANER OPERATOR / GRADER 10/16/2024 10:32 AM PLANER OPERATOR / GRADER Satnam Nair MD LAB BLOOD ORDERABLES Final R esult [facility] ([place]) 1 [facility] Department [place] [address] * Differential, auto (10/16/2024 9:47 AM PLANER OPERATOR / GRADER) Neutrophil abs 2.8 1.5 - 6.5 K/cumm [...] revised on 2018. Blood 10/16/2024 9:47 AM PLANER OPERATOR / GRADER 10/16/2024 10:32 AM PLANER OPERATOR / GRADER us Satnam Nair MD LAB BLOOD ORDERABLES Final R esult [facility] ([place]) 1 [facility] Department [place] [address] * CBC with auto differential (10/16/2024 9:47 AM PLANER OPERATOR / GRADER) WBC 4.5 3.8 - 9.9 K/cumm Hgb [...] NRBC abs 0.00 0.00 - 0.01 K/cumm [facility] ([place] Blood 10/16/2024 9:47 AM PLANER OPERATOR / GRADER 10/16/2024 10:32 AM PLANER OPERATOR / GRADER us Satnam Nair MD LAB BLOOD ORDERABLES Final R esult [facility] ([place]) 1 [facility] Department [place] [address] * Comprehensive metabolic panel (10/16/2024 9:47 AM PLANER OPERATOR / GRADER) Sodium 140 135 - 145 mmol/L Potassium, pl 3.6 3.3 - 4.9 mmol/L [facility] ([place] Chloride 105 97 - 110 mmol/L [facility] ([place] CO2 23 22 - 32 mmol/L [facility] ([place]) Anion gap 12 2 - 15 mmol/L [facility] ([place]) BUN 9 6 - 25 mg/dL [facility] ([place]) Creatinine 0.73 0.60 - 1.10 mg/dL [facility] ([place]) Glucose 97 70 - 199 mg/dL [facility] ([place]) Comment: Interpretive Data Fasting glucose [...] [facility] ([place]) Blood 10/16/2024 9:47 AM PLANER OPERATOR / GRADER 10/16/2024 10:32 AM PLANER OPERATOR / GRADER Satnam Nair MD LAB BLOOD ORDERABLES Final R esult BIA [facility] ([place]) 1 [facility] Department [place] [address] * Rh Immune Globulin Eval (09/20/2024 4:48 AM PLANER OPERATOR / GRADER) RhIg Administration 1 vial of Rh Immune Globulin (300 mcg dose) RhIg Eligible Yes, eligible [facility] Blood 09/20/2024 4:48 AM PLANER OPERATOR / GRADER 09/20/2024 5:03 AM PLANER OPERATOR / GRADER Narrative [facility] - 09/20/2024 5:36 AM PLANER OPERATOR / GRADER Number of weeks ?->20 weeks or greater antibody screen result:->Negative Rhogam given?->Given Date Given?->08/01/24 Number of vials requested:->1 Sara Eng MD LAB BLOOD BANK TEST ORDERABL ES Final Result Performing Organization Address [facility] Co de Phone Number [facility] [place] [address] * Bleed Screen (09/20/2024 4:48 AM PLANER OPERATOR / GRADER) [facility] Bleed Screen Negative Blood 09/20/2024 4:48 AM PLANER OPERATOR / GRADER 09/20/2024 5:03 AM PLANER OPERATOR / GRADER Rey Quinonez MD LAB BLOOD BANK TEST ORDERABLE S Final Result Performing Organization Address [facility] de Phone Number [facility] [place] [address] * ABO/Rh (09/20/2024 4:48 AM PLANER OPERATOR / GRADER) [facility] ABO Rh O Negative Blood 09/20/2024 4:48 AM PLANER OPERATOR / GRADER 09/20/2024 5:03 AM PLANER OPERATOR / GRADER Rey Quinonez MD LAB BLOOD BANK TEST ORDERABLE S Final Result Performing Organization Address [facility] de Phone Number [facility] [place] [address] * (ABNORMAL) CBC without differential (09/20/2024 4:48 AM PLANER OPERATOR / GRADER) [facility] WBC 10.3(H) 3.8 - 9.9 K/cumm Hgb 9.7(L) 11.9 - 15.5 g/dL [facility] Hct 28.4(L) 35.6 - 45.5 % [facility] Plt 230 150 - 400 K/cumm [facility] MPV 10.8 9.1 - 12.3 fL [facility] RBC 3.22(L) 3.90 - 5.20 M/cumm [facility] MCV 88.2 81.3 - 96.4 fL [facility] MCH 30.1 27.1 - 33.3 pg [facility] MCHC 34.2 32.3 - 35.7 g/dL [facility] RDW CV 13.9 11.1 - 14.9 % [facility] RDW SD 44.6 35.7 - 48.1 fL [facility] NRBC abs 0.00 0.00 - 0.01 K/cumm [facility] Blood 09/20/2024 4:48 AM PLANER OPERATOR / GRADER 09/20/2024 5:11 AM PLANER OPERATOR / GRADER us Sara Eng MD LAB BLOOD ORDERABLES Final R esult [facility] [place] [address] * Surgical pathology (09/19/2024 4:06 PM PLANER OPERATOR / GRADER) Tissue (Placenta) 09/19/2024 4:06 PM PLANER OPERATOR / GRADER 09/20/2024 8:37 AM PLANER OPERATOR / GRADER Narrative PATHOLOGY [facility] - 09/26/2024 2:16 PM PLANER OPERATOR / GRADER EPIC results best viewed via link to PDF [facility] Nicole Brown Laboratory [place] [address] Note to Patients: This report may contain [...] Gender: F : 1995 (Age: 29) Address: [address] [place] [id number] Hospital #: [id number] Taken:09/19/2024 Received:09/20/2024 Reported: 09/26/2024 Patient Type: [facility] Inpatient Service: Obstetrics Location: [place] [address] Physician(s): MD Sara Parker M.D. Diagnosis: Placenta, [...] discrete lesions or infarcts are grossly identified. Lead Software Qa Engineer sections are submitted: A1 = arbitrarily assigned twin A, cord and membranes; A2-4 = twin A, route service representative parenchyma; A5 = common membrane and T-zone; A6 = arbitrarily assigned twin B, cord and membranes; A7-9 = twin B, route service representative parenchyma. Jar 3. sxv/09/21/2024 11:11 PA(s): Catalino Hernandez, MS, PA ([facility])CM By this signature, I attest that the above diagnosis is based upon my personal examination of the slides(and/or other material). Addenda/Procedures The performance characteristics of some immunohistochemical stains, fluorescence in-situ hybridization tests and immunophenotyping by flow cytometry cited in this report (if any) were determined by the Surgical Pathology and Flow Cytometry Departments at [facility] as part of an ongoing quality assurance engineer program and in compliance with federally mandated [...] Surgical Pathology and Flow Cytometry Departments of [facility]. It has not been cleared or approved by the U. S. Food and Drug Administration. IMAGES AND SCANNED DOCUMENTS, IF INCLUDED, ONLY VIEWABLE IN PDF VERSION OF REPORT us Sara Eng MD LAB PATHOLOGY ORDERABLES [facility] al Result PATHOLOGY [facility] 3rd Floor [place], [place] [phone] * Epidural Block (09/19/2024 2:45 PM PLANER OPERATOR / GRADER) Narrative Abena Denton MD - 09/19/2024 2:45 PM PLANER OPERATOR / GRADER Abena Denton MD 09/19/2024 2:50 PM Epidural [...] Final Result * eGFR (09/18/2024 6:21 AM PLANER OPERATOR / GRADER) eGFR >90 >=60 mL/min/1. 73 m2 Comment: [...] last reviewed 2021. Blood 09/18/2024 6:21 AM PLANER OPERATOR / GRADER 09/18/2024 6:32 AM PLANER OPERATOR / GRADER us Anastasia Amaro MD LAB BLOOD ORDERABLES Final Result [facility] One [facility] [place] [address] * (ABNORMAL) CBC without differential (09/18/2024 6:21 AM PLANER OPERATOR / GRADER) [facility] WBC 10.0(H) 3.8 - 9.9 K/cumm Hgb 11.6(L) 11.9 - 15.5 g/dL [facility] Hct 34.0(L) 35.6 - 45.5 % [facility] Plt 250 150 - 400 K/cumm [facility] MPV 11.0 9.1 - 12.3 fL [facility] RBC 3.92 3.90 - 5.20 M/cumm [facility] MCV 86.7 81.3 - 96.4 fL [facility] MCH 29.6 27.1 - 33.3 pg [facility] MCHC 34.1 32.3 - 35.7 g/dL [facility] RDW CV 13.7 11.1 - 14.9 % [facility] RDW SD 43.1 35.7 - 48.1 fL [facility] NRBC abs 0.00 0.00 - 0.01 K/cumm [facility] Blood 09/18/2024 6:21 AM PLANER OPERATOR / GRADER 09/18/2024 6:32 AM PLANER OPERATOR / GRADER Anastasia Amaro MD LAB BLOOD ORDERABLES Final Result [facility] [place] [address] * Type and screen (09/18/2024 6:21 AM PLANER OPERATOR / GRADER) [facility] Abiodun, indirect Negative ABO Rh O Negative [facility] Blood 09/18/2024 6:21 AM PLANER OPERATOR / GRADER 09/18/2024 6:35 AM PLANER OPERATOR / GRADER Narrative [facility] - 09/18/2024 7:42 AM PLANER OPERATOR / GRADER Has the patient had Daratumumab or Isatuximab in the past 6 months?->Unknown us Anastasia Amaro MD LAB BLOOD BANK TEST ORDERA BLES Final Result [facility] Department [place] [address] * (ABNORMAL) Comprehensive metabolic panel (09/18/2024 6:21 AM PLANER OPERATOR / GRADER) Sodium 134(L) 135 - 145 mmol/L Potassium, pl 3.8 3.3 - 4.9 mmol/L [facility] Chloride 105 97 - 110 mmol/L [facility] CO2 23 22 - 32 mmol/L [facility] Anion gap 6 2 - 15 mmol/L [facility] BUN 9 6 - 25 mg/dL [facility] Creatinine 0.69 0.60 - 1.10 mg/dL [facility] Glucose 68(L) 70 - 199 mg/dL [facility] Comment: Interpretive Data Fasting [...] Calcium 9.0 8.5 - 10.3 mg/dL [facility] Bilirubin, total 0.2 0.1 - 1.2 mg/dL [facility] Protein, pl 6.3(L) 6.5 - 8.5 g/dL [facility] Albumin 3.0(L) 3.5 - 5.0 g/dL [facility] Alk phos 125 40 - 130 Units/L [facility] ALT 14 7 - 45 Units/L [facility] AST 16 10 - 45 Units/L [facility] Blood 09/18/2024 6:21 AM PLANER OPERATOR / GRADER 09/18/2024 6:32 AM PLANER OPERATOR / GRADER us Anastasia Amaro MD LAB BLOOD ORDERABLES Final Result [facility] Department [place] [address] * nonstress test (09/17/2024 2:58 PM PLANER OPERATOR / GRADER) Narrative Sandra Christy MD - 09/17/2024 2:58 PM PLANER OPERATOR / GRADER Joellen Schilling MD 09/17/2024 4:04 PM nonstress test Date/Time: 09/17/2024 2:58 PM Performed by: Maureen Calix MD Authorized by: Ana M Rogers MD Ana M Rogers MD OB GYNE ORDERABLES Fi nal Result * US Ob Follow Up (09/15/2024 1:08 PM PLANER OPERATOR / GRADER) Fetus# Fetus1 VIEWPOINT Estimated Weight 1,709 g&grams VIEWPOINT Placenta Details anterior VIEWPOINT Presentation Vertex; Maternal right- low VIEWPOINT Fetus# Fetus2 VIEWPOINT Estimated Weight 2,585 g&grams VIEWPOINT Placenta Details anterior VIEWPOINT Presentation Vertex; Maternal left- high VIEWPOINT Anatomical Region Laterality Modality Abdomen N/A Ultrasound 09/15/2024 1:08 PM PLANER OPERATOR / GRADER Impressions 09/15/2024 2:24 PM PLANER OPERATOR / GRADER Diamniotic (presumed MCDA) TIUP at 33w33d who is admitted for preE with severe features who presents for growth US was previously determined to be monochorionic by the [facility] practice. A thin dividing membrane and [...] previously determined to be monochorionic by the [facility]. A thin dividing membrane and single [...] R esult * eGFR (09/15/2024 6:17 AM PLANER OPERATOR / GRADER) eGFR >90 >=60 mL/min/1. 73 m2 Comment: [...] last reviewed 2021. Blood 09/15/2024 6:17 AM PLANER OPERATOR / GRADER 09/15/2024 6:31 AM PLANER OPERATOR / GRADER Anastasia Amaro MD LAB BLOOD ORDERABLES Final Result [facility] Department [place] [address] * (ABNORMAL) CBC without differential (09/15/2024 6:17 AM PLANER OPERATOR / GRADER) WBC 10.1(H) 3.8 - 9.9 K/cumm Hgb 11.7(L) 11.9 - 15.5 g/dL [facility] Hct 34.6(L) 35.6 - 45.5 % [facility] Plt 253 150 - 400 K/cumm [facility] MPV 11.2 9.1 - 12.3 fL [facility] RBC 3.94 3.90 - 5.20 M/cumm [facility] MCV 87.8 81.3 - 96.4 fL [facility] MCH 29.7 27.1 - 33.3 pg [facility] MCHC 33.8 32.3 - 35.7 g/dL [facility] RDW CV 13.8 11.1 - 14.9 % [facility] RDW SD 44.1 35.7 - 48.1 fL [facility] NRBC abs 0.00 0.00 - 0.01 K/cumm [facility] Blood 09/15/2024 6:17 AM PLANER OPERATOR / GRADER 09/15/2024 6:31 AM PLANER OPERATOR / GRADER Anastasia Amaro MD LAB BLOOD ORDERABLES Final Result Performing Organization Address [facility] Co de Phone Number [facility] [place] [place] [address] * Type and screen (09/15/2024 6:17 AM PLANER OPERATOR / GRADER) Pathologist [facility] Abiodun, indirect Negative Comment:Patient has previous antibody history ABO Rh O Negative [facility] Blood 09/15/2024 6:17 AM PLANER OPERATOR / GRADER 09/15/2024 6:30 AM PLANER OPERATOR / GRADER Narrative [facility] - 09/15/2024 7:57 AM PLANER OPERATOR / GRADER Has the patient had Daratumumab or Isatuximab in the past 6 months?->Unknown us Anastasia Amaro MD LAB BLOOD BANK TEST ORDERA BLES Final Result Performing Organization Address City/[facility] Co de Phone Number [facility] [place] [place] [address] * (ABNORMAL) Comprehensive metabolic panel (09/15/2024 6:17 AM PLANER OPERATOR / GRADER) Pathologist [facility] Sodium 139 135 - 145 mmol/L Potassium, pl 3.5 3.3 - 4.9 mmol/L [facility] Chloride 106 97 - 110 mmol/L [facility] CO2 21(L) 22 - 32 mmol/L [facility] Anion gap 12 2 - 15 mmol/L [facility] BUN 8 6 - 25 mg/dL [facility] Creatinine 0.66 0.60 - 1.10 mg/dL [facility] Glucose 106 70 - 199 mg/dL [facility] Comment: Interpretive Data Fasting [...] Calcium 9.0 8.5 - 10.3 mg/dL [facility] Bilirubin, total <0.2 0.1 - 1.2 mg/dL [facility] Protein, pl 6.4(L) 6.5 - 8.5 g/dL [facility] Albumin 3.0(L) 3.5 - 5.0 g/dL [facility] Alk phos 124 40 - 130 Units/L [facility] ALT 19 7 - 45 Units/L [facility] AST 20 10 - 45 Units/L [facility] Blood 09/15/2024 6:17 AM PLANER OPERATOR / GRADER 09/15/2024 6:31 AM PLANER OPERATOR / GRADER us Anastasia Amaro MD LAB BLOOD ORDERABLES Final Result [facility] Department [place] [address] * nonstress test (09/13/2024 5:10 PM PLANER OPERATOR / GRADER) Narrative Sandra Christy MD - 09/13/2024 5:10 PM PLANER OPERATOR / GRADER BolaAnastasia Bya MD 09/13/2024 5:21 PM 29 y.o. at [...] nal Result * eGFR (09/12/2024 6:35 AM PLANER OPERATOR / GRADER) eGFR >90 >=60 mL/min/1. 73 m2 Comment: [...] last reviewed 2021. Blood 09/12/2024 6:35 AM PLANER OPERATOR / GRADER 09/12/2024 6:51 AM PLANER OPERATOR / GRADER us Anastasia Amaro MD LAB BLOOD ORDERABLES Final Result [facility] Department [place] [address] * (ABNORMAL) CBC without differential (09/12/2024 6:35 AM PLANER OPERATOR / GRADER) WBC 10.0(H) 3.8 - 9.9 K/cumm Hgb 11.8(L) 11.9 - 15.5 g/dL [facility] Hct 35.3(L) 35.6 - 45.5 % [facility] Plt 226 150 - 400 K/cumm [facility] MPV 11.2 9.1 - 12.3 fL [facility] RBC 3.97 3.90 - 5.20 M/cumm [facility] MCV 88.9 81.3 - 96.4 fL [facility] MCH 29.7 27.1 - 33.3 pg [facility] MCHC 33.4 32.3 - 35.7 g/dL [facility] RDW CV 13.8 11.1 - 14.9 % [facility] RDW SD 44.5 35.7 - 48.1 fL [facility] NRBC abs 0.02(H) 0.00 - 0.01 K/cumm [facility] Blood 09/12/2024 6:35 AM PLANER OPERATOR / GRADER 09/12/2024 6:52 AM PLANER OPERATOR / GRADER us Anastasia Amaro MD LAB BLOOD ORDERABLES Final Result Performing Organization Address City/[facility] Co de Phone Number [facility] [place] [address] * Type and screen (09/12/2024 6:35 AM PLANER OPERATOR / GRADER) ABO Rh O Negative Abiodun, indirect Negative [facility] Comment:Patient has previous antibody history Blood 09/12/2024 6:35 AM PLANER OPERATOR / GRADER 09/12/2024 6:48 AM PLANER OPERATOR / GRADER Narrative [facility] - 09/12/2024 7:49 AM PLANER OPERATOR / GRADER Has the patient had Daratumumab or Isatuximab in the past 6 months?->Unknown Anastasia mAaro MD LAB BLOOD BANK TEST ORDERA BLES Final Result Performing Organization Address City/[facility]/ZIP Co de Phone Number [facility] [place] [place] [address] * (ABNORMAL) Comprehensive metabolic panel (09/12/2024 6:35 AM PLANER OPERATOR / GRADER) Sodium 139 135 - 145 mmol/L Potassium, pl 3.8 3.3 - 4.9 mmol/L [facility] Chloride 107 97 - 110 mmol/L [facility] CO2 22 22 - 32 mmol/L [facility] Anion gap 10 2 - 15 mmol/L [facility] BUN 6 6 - 25 mg/dL [facility] Creatinine 0.64 0.60 - 1.10 mg/dL [facility] Glucose 69(L) 70 - 199 mg/dL [facility] Comment: Interpretive Data Fasting [...] Calcium 8.8 8.5 - 10.3 mg/dL [facility] Bilirubin, total <0.2 0.1 - 1.2 mg/dL [facility] Protein, pl 6.4(L) 6.5 - 8.5 g/dL [facility] Albumin 3.1(L) 3.5 - 5.0 g/dL [facility] Alk phos 122 40 - 130 Units/L [facility] ALT 22 7 - 45 Units/L [facility] AST 23 10 - 45 Units/L [facility] Blood 09/12/2024 6:35 AM PLANER OPERATOR / GRADER 09/12/2024 6:51 AM PLANER OPERATOR / GRADER us Anastasia Amaro MD LAB BLOOD ORDERABLES Final Result [facility] Department [place] [address] * eGFR (09/09/2024 6:24 AM PLANER OPERATOR / GRADER) [facility] eGFR >90 >=60 mL/min/1. 73 m2 [...] last reviewed 2021. Blood 09/09/2024 6:24 AM PLANER OPERATOR / GRADER 09/09/2024 6:52 AM PLANER OPERATOR / GRADER us Anastasia Amaro MD LAB BLOOD ORDERABLES Final Result [facility] Department [place] [address] * (ABNORMAL) CBC without differential (09/09/2024 6:24 AM PLANER OPERATOR / GRADER) [facility] WBC 8.6 3.8 - 9.9 K/cumm Hgb 10.9(L) 11.9 - 15.5 g/dL [facility] Hct 33.1(L) 35.6 - 45.5 % [facility] Plt 239 150 - 400 K/cumm [facility] MPV 11.0 9.1 - 12.3 fL [facility] RBC 3.77(L) 3.90 - 5.20 M/cumm [facility] MCV 87.8 81.3 - 96.4 fL [facility] MCH 28.9 27.1 - 33.3 pg [facility] MCHC 32.9 32.3 - 35.7 g/dL [facility] RDW CV 13.8 11.1 - 14.9 % [facility] RDW SD 43.8 35.7 - 48.1 fL [facility] NRBC abs 0.00 0.00 - 0.01 K/cumm [facility] Blood 09/09/2024 6:24 AM PLANER OPERATOR / GRADER 09/09/2024 6:52 AM PLANER OPERATOR / GRADER Anastasia Amaro MD LAB BLOOD ORDERABLES Final Result Performing Organization Address [facility] de Phone Number [facility] [place] [place] [address] * Type and screen (09/09/2024 6:24 AM PLANER OPERATOR / GRADER) Pathologist [facility] ABO Rh O Negative Abiodun, indirect Negative [facility] Comment:Patient has previous antibody history Blood 09/09/2024 6:24 AM PLANER OPERATOR / GRADER 09/09/2024 7:19 AM PLANER OPERATOR / GRADER Narrative [facility] - 09/09/2024 8:51 AM PLANER OPERATOR / GRADER Has the patient had Daratumumab or Isatuximab in the past 6 months?->Unknown Anastasia Amaro MD LAB BLOOD BANK TEST ORDERA BLES Final Result Performing Organization Address [facility] de Phone Number [facility] [place] [address] * (ABNORMAL) Comprehensive metabolic panel (09/09/2024 6:24 AM PLANER OPERATOR / GRADER) Sodium 141 135 - 145 mmol/L Potassium, pl 3.8 3.3 - 4.9 mmol/L [facility] Chloride 108 97 - 110 mmol/L [facility] CO2 22 22 - 32 mmol/L [facility] Anion gap 11 2 - 15 mmol/L [facility] BUN 8 6 - 25 mg/dL [facility] Creatinine 0.75 0.60 - 1.10 mg/dL [facility] Glucose 70 70 - 199 mg/dL [facility] Comment: Interpretive Data Fasting glucose >/= 126 [...] 2022. Calcium 8.9 8.5 - 10.3 mg/dL [facility] Bilirubin, total <0.2 0.1 - 1.2 mg/dL [facility] Protein, pl 6.2(L) 6.5 - 8.5 g/dL [facility] Albumin 3.2(L) 3.5 - 5.0 g/dL [facility] Alk phos 117 40 - 130 Units/L [facility] ALT 22 7 - 45 Units/L [facility] AST 23 10 - 45 Units/L [facility] Blood 09/09/2024 6:24 AM PLANER OPERATOR / GRADER 09/09/2024 6:52 AM PLANER OPERATOR / GRADER us Anastasia Amaro MD LAB BLOOD ORDERABLES Final Result [facility] Department [place] [address] * US Ob Limited (09/08/2024 10:29 AM PLANER OPERATOR / GRADER) Fetus# Fetus1 VIEWPOINT Placenta Details anterior VIEWPOINT Presentation Vertex; Maternal right- low VIEWPOINT Fetus# Fetus2 VIEWPOINT Placenta Details anterior VIEWPOINT Presentation Vertex; Maternal left- high (presenting) VIEWPOINT Anatomical Region Laterality Modality Abdomen N/A Ultrasound 09/08/2024 10:2 9 AM PLANER OPERATOR / GRADER Impressions 09/08/2024 11:25 AM PLANER OPERATOR / GRADER 1. Mo/di twin IUP at 32w 3d. [...] esult * nonstress test (09/06/2024 8:38 PM PLANER OPERATOR / GRADER) Narrative Anastasia Amaro MD - 09/06/2024 8:38 PM PLANER OPERATOR / GRADER Pauline Simms MD 09/06/2024 8:41 PM Baby A FHR Baseline: 125 Variability: moderate Accelerations: absent Decelerations: absent in last part of tracing, was initially having small variable decels in monitoring Reactive: Yes Baby B FHR Baseline: 130 Variability: moderate Accelerations: present Decelerations: absent Reactive: Yes 29 y.o. at 32w1d a/f preeclampsia with SF On monitor [id number] Contractions: absent I have reviewed NST and instructed RN to take off monitor Pauline Simms MD us Ana M Rachel Rogers MD OB GYNE ORDERABLES Fi nal Result * eGFR (09/06/2024 4:31 AM PLANER OPERATOR / GRADER) Pathologist [facility] eGFR >90 >=60 mL/min/1. 73 m2 Comment: [...] last reviewed 2021. Blood 09/06/2024 4:31 AM PLANER OPERATOR / GRADER 09/06/2024 4:53 AM PLANER OPERATOR / GRADER us Anastasia Amaro MD LAB BLOOD ORDERABLES Final Result [facility] Department [place] [address] * (ABNORMAL) CBC without differential (09/06/2024 4:31 AM PLANER OPERATOR / GRADER) [facility] WBC 10.3(H) 3.8 - 9.9 K/cumm Hgb 11.7(L) 11.9 - 15.5 g/dL [facility] Hct 34.5(L) 35.6 - 45.5 % [facility] Plt 249 150 - 400 K/cumm [facility] MPV 11.1 9.1 - 12.3 fL [facility] RBC 3.96 3.90 - 5.20 M/cumm [facility] MCV 87.1 81.3 - 96.4 fL [facility] MCH 29.5 27.1 - 33.3 pg [facility] MCHC 33.9 32.3 - 35.7 g/dL [facility] RDW CV 13.6 11.1 - 14.9 % [facility] RDW SD 42.7 35.7 - 48.1 fL [facility] NRBC abs 0.00 0.00 - 0.01 K/cumm [facility] Blood 09/06/2024 4:31 AM PLANER OPERATOR / GRADER 09/06/2024 4:54 AM PLANER OPERATOR / GRADER Anastasia Amaro MD LAB BLOOD ORDERABLES Final Result Performing Organization Address [facility] Co de Phone Number [facility] Department [place] [address] * Type and screen (09/06/2024 4:31 AM PLANER OPERATOR / GRADER) [facility] ABO Rh O Negative Abiodun, indirect Negative [facility] Comment:Patient has previous antibody history Blood 09/06/2024 4:31 AM PLANER OPERATOR / GRADER 09/06/2024 6:11 AM PLANER OPERATOR / GRADER Narrative [facility] - 09/06/2024 7:16 AM PLANER OPERATOR / GRADER Has the patient had Daratumumab or Isatuximab in the past 6 months?->Unknown Anastasia Amaro MD LAB BLOOD BANK TEST ORDERA BLES Final Result Performing Organization Address [facility] Co de Phone Number [facility] Department [place] [address] * (ABNORMAL) Comprehensive metabolic panel (09/06/2024 4:31 AM PLANER OPERATOR / GRADER) [facility] Sodium 138 135 - 145 mmol/L Potassium, pl 3.6 3.3 - 4.9 mmol/L [facility] Chloride 105 97 - 110 mmol/L [facility] CO2 24 22 - 32 mmol/L [facility] Anion gap 9 2 - 15 mmol/L [facility] BUN 7 6 - 25 mg/dL [facility] Creatinine 0.63 0.60 - 1.10 mg/dL [facility] Glucose 62(L) 70 - 199 mg/dL [facility] Comment: Interpretive Data Fasting [...] Calcium 9.3 8.5 - 10.3 mg/dL [facility] Bilirubin, total 0.3 0.1 - 1.2 mg/dL [facility] Protein, pl 6.6 6.5 - 8.5 g/dL [facility] Albumin 3.2(L) 3.5 - 5.0 g/dL [facility] Alk phos 118 40 - 130 Units/L [facility] ALT 23 7 - 45 Units/L [facility] AST 22 10 - 45 Units/L [facility] Blood 09/06/2024 4:31 AM PLANER OPERATOR / GRADER 09/06/2024 4:53 AM PLANER OPERATOR / GRADER Anastasia Amaro MD LAB BLOOD ORDERABLES Final Result [facility] [place] [address] * Group B streptococcal culture Vaginal/Rectal (09/03/2024 10:29 AM PLANER OPERATOR / GRADER) Report Final Report: Negative Vaginal/Rectal 09/03/2024 10 :29 AM PLANER OPERATOR / GRADER 09/03/2024 10:47 AM PLANER OPERATOR / GRADER Narrative [facility] - 09/07/2024 11:05 AM PLANER OPERATOR / GRADER Testing performed by [facility] ([phone]). us Joellen Julio MD LAB MICROBIOLOGY - GENERAL O RDERABLES Final Result Performing Organization Address City/[facility]/ZIP Co de Phone Number [facility] Department [place] [address] * eGFR (09/03/2024 5:26 AM PLANER OPERATOR / GRADER) eGFR >90 >=60 mL/min/1. 73 m2 Comment: [...] last reviewed 2021. Blood 09/03/2024 5:26 AM PLANER OPERATOR / GRADER 09/03/2024 5:39 AM PLANER OPERATOR / GRADER us Anastasia Amaro MD LAB BLOOD ORDERABLES Final Result Performing Organization Address City/[facility]/ZIP Co de Phone Number [facility] Department [place] [address] * (ABNORMAL) CBC without differential (09/03/2024 5:26 AM PLANER OPERATOR / GRADER) Pathologist [facility] WBC 12.1(H) 3.8 - 9.9 K/cumm Hgb 11.7(L) 11.9 - 15.5 g/dL [facility] Hct 34.0(L) 35.6 - 45.5 % [facility] Plt 273 150 - 400 K/cumm [facility] MPV 11.0 9.1 - 12.3 fL [facility] RBC 3.97 3.90 - 5.20 M/cumm [facility] MCV 85.6 81.3 - 96.4 fL [facility] MCH 29.5 27.1 - 33.3 pg [facility] MCHC 34.4 32.3 - 35.7 g/dL [facility] RDW CV 13.3 11.1 - 14.9 % [facility] RDW SD 41.7 35.7 - 48.1 fL [facility] NRBC abs 0.00 0.00 - 0.01 K/cumm [facility] Blood 09/03/2024 5:26 AM PLANER OPERATOR / GRADER 09/03/2024 5:39 AM PLANER OPERATOR / GRADER Anastasia Amaro MD LAB BLOOD ORDERABLES Final Result Performing Organization Address City/[facility]/ZIP Co de Phone Number [facility] [place] [employer] [place] [address] * Type and screen (09/03/2024 5:26 AM PLANER OPERATOR / GRADER) Pathologist [facility] Abiodun, indirect Negative Comment:Patient has previous antibody history ABO Rh O Negative [facility] Blood 09/03/2024 5:26 AM PLANER OPERATOR / GRADER 09/03/2024 5:32 AM PLANER OPERATOR / GRADER Narrative [facility] - 09/03/2024 6:27 AM PLANER OPERATOR / GRADER Has the patient had Daratumumab or Isatuximab in the past 6 months?->Unknown us Anastasia Amaro MD LAB BLOOD BANK TEST ORDERA BLES Final Result [facility] [place] [employer] [place] [address] * (ABNORMAL) Comprehensive metabolic panel (09/03/2024 5:26 AM PLANER OPERATOR / GRADER) Pathologist [facility] Sodium 139 135 - 145 mmol/L Potassium, pl 4.0 3.3 - 4.9 mmol/L [facility] Chloride 105 97 - 110 mmol/L [facility] CO2 20(L) 22 - 32 mmol/L [facility] Anion gap 14 2 - 15 mmol/L [facility] BUN 8 6 - 25 mg/dL [facility] Creatinine 0.55(L) 0.60 - 1.10 mg/dL [facility] Glucose 68(L) 70 - 199 mg/dL [facility] Comment: Interpretive Data Fasting [...] Calcium 9.3 8.5 - 10.3 mg/dL [facility] Bilirubin, total 0.3 0.1 - 1.2 mg/dL [facility] Protein, pl 6.4(L) 6.5 - 8.5 g/dL [facility] Albumin 3.3(L) 3.5 - 5.0 g/dL [facility] Alk phos 111 40 - 130 Units/L [facility] ALT 22 7 - 45 Units/L [facility] AST 24 10 - 45 Units/L [facility] Blood 09/03/2024 5:26 AM PLANER OPERATOR / GRADER 09/03/2024 5:39 AM PLANER OPERATOR / GRADER us Anastasia Amaro MD LAB BLOOD ORDERABLES Final Result [facility] Department [place] [address] * ECG 12 lead (09/02/2024 4:33 PM PLANER OPERATOR / GRADER) Pathologist [facility] Ventricular Rate EKG/Min 110 BPM [facility] Atrial Rate 110 BPM [facility] [place]-Interval (MSEC) 130 ms [facility] QRS-Interval (MSEC) 82 ms [facility] QT-Interval (MSEC) 340 ms [facility] QTc 460 ms [facility] P [place] 55 degrees [facility] R [place] 22 degrees [facility] T [place] 30 degrees [facility] Diagnosis Sinus tachycardia Otherwise normal ECG No previous ECGs available Confirmed by SAMANTA KAPLAN M.D ([id number]) on 09/06/2024 2:44:26 PM [facility] 09/02/2024 4:33 PM PLANER OPERATOR / GRADER 09/06/2024 2:44 PM PLANER OPERATOR / GRADER us Joellen Julio MD ECG ORDERABLES Final Result [facility] * eGFR (08/31/2024 6:20 AM PLANER OPERATOR / GRADER) eGFR >90 >=60 mL/min/1. 73 m2 Comment: [...] last reviewed 2021. Blood 08/31/2024 6:20 AM PLANER OPERATOR / GRADER 08/31/2024 7:25 AM PLANER OPERATOR / GRADER us Anastasia Amaro MD LAB BLOOD ORDERABLES Final Result [facility] Department [place] [address] * (ABNORMAL) CBC without differential (08/31/2024 6:20 AM PLANER OPERATOR / GRADER) Pathologist [facility] WBC 10.5(H) 3.8 - 9.9 K/cumm Hgb 11.5(L) 11.9 - 15.5 g/dL [facility] Hct 34.1(L) 35.6 - 45.5 % [facility] Plt 282 150 - 400 K/cumm [facility] MPV 10.9 9.1 - 12.3 fL [facility] RBC 3.93 3.90 - 5.20 M/cumm [facility] MCV 86.8 81.3 - 96.4 fL [facility] MCH 29.3 27.1 - 33.3 pg [facility] MCHC 33.7 32.3 - 35.7 g/dL [facility] RDW CV 13.7 11.1 - 14.9 % [facility] RDW SD 42.6 35.7 - 48.1 fL [facility] NRBC abs 0.00 0.00 - 0.01 K/cumm [facility] Blood 08/31/2024 6:20 AM PLANER OPERATOR / GRADER 08/31/2024 7:25 AM PLANER OPERATOR / GRADER Anastasia Amaro MD LAB BLOOD ORDERABLES Final Result [facility] Department [place] [address] * Type and screen (08/31/2024 6:20 AM PLANER OPERATOR / GRADER) Pathologist [facility] ABO Rh O Negative Abiodun, indirect Negative [facility] Comment:Patient has previous antibody history Blood 08/31/2024 6:20 AM PLANER OPERATOR / GRADER 08/31/2024 7:41 AM PLANER OPERATOR / GRADER Narrative [facility] - 08/31/2024 8:26 AM PLANER OPERATOR / GRADER Has the patient had Daratumumab or Isatuximab in the past 6 months?->Unknown Anastasia Amaro MD LAB BLOOD BANK TEST ORDERA BLES Final Result Performing Organization Address City/[facility]/ZIP Co de Phone Number [facility] [place] [address] * (ABNORMAL) Comprehensive metabolic panel (08/31/2024 6:20 AM PLANER OPERATOR / GRADER) Sodium 137 135 - 145 mmol/L Potassium, pl 3.7 3.3 - 4.9 mmol/L [facility] Chloride 103 97 - 110 mmol/L [facility] CO2 22 22 - 32 mmol/L [facility] Anion gap 12 2 - 15 mmol/L [facility] BUN 6 6 - 25 mg/dL [facility] Creatinine 0.56(L) 0.60 - 1.10 mg/dL [facility] Glucose 70 70 - 199 mg/dL [facility] Comment: Interpretive Data Fasting [...] Calcium 9.5 8.5 - 10.3 mg/dL [facility] Bilirubin, total 0.2 0.1 - 1.2 mg/dL [facility] Protein, pl 6.4(L) 6.5 - 8.5 g/dL [facility] Albumin 3.2(L) 3.5 - 5.0 g/dL [facility] Alk phos 103 40 - 130 Units/L [facility] ALT 28 7 - 45 Units/L [facility] AST 25 10 - 45 Units/L [facility] Blood 08/31/2024 6:20 AM PLANER OPERATOR / GRADER 08/31/2024 7:25 AM PLANER OPERATOR / GRADER Anastasia Amaro MD LAB BLOOD ORDERABLES Final Result [facility] [place] [address] * nonstress test (08/29/2024 2:32 PM PLANER OPERATOR / GRADER) Nini Lebron MD - 08/29/2024 2:32 PM PLANER OPERATOR / GRADER Maureen Calix MD 08/29/2024 3:38 PM nonstress test Date/Time: 08/29/2024 2:32 PM Performed by: Maureen Calix MD Authorized by: Ana M Rogers MD us Ana M Rogers MD OB GYNE ORDERABLES Fi nal Result * nonstress test (08/28/2024 7:47 PM PLANER OPERATOR / GRADER) Nini Lebron MD - 08/28/2024 7:47 PM PLANER OPERATOR / GRADER Francisca Yun MD 08/28/2024 7:48 PM A FHR Baseline: 120 Variability: moderate Reactive: Yes Contractions: absent B FHR Baseline: 130 Variability: moderate Reactive: Yes Contractions: absent Comments: No decels x2 I have reviewed NST and instructed RN to take off monitor Francisca Yun MD us Ana M Rogers MD OB GYNE ORDERABLES Fi nal Result * eGFR (08/28/2024 6:00 AM PLANER OPERATOR / GRADER) eGFR >90 >=60 mL/min/1. 73 m2 Comment: [...] last reviewed 2021. Blood 08/28/2024 6:00 AM PLANER OPERATOR / GRADER 08/28/2024 6:13 AM PLANER OPERATOR / GRADER Anastasia Amaro MD LAB BLOOD ORDERABLES Final Result [facility] [place] [place] [address] * (ABNORMAL) CBC without differential (08/28/2024 6:00 AM PLANER OPERATOR / GRADER) WBC 10.3(H) 3.8 - 9.9 K/cumm Hgb 11.2(L) 11.9 - 15.5 g/dL [facility] Hct 33.0(L) 35.6 - 45.5 % [facility] Plt 289 150 - 400 K/cumm [facility] MPV 10.7 9.1 - 12.3 fL [facility] RBC 3.78(L) 3.90 - 5.20 M/cumm [facility] MCV 87.3 81.3 - 96.4 fL [facility] MCH 29.6 27.1 - 33.3 pg [facility] MCHC 33.9 32.3 - 35.7 g/dL [facility] RDW CV 13.7 11.1 - 14.9 % [facility] RDW SD 43.6 35.7 - 48.1 fL [facility] NRBC abs 0.00 0.00 - 0.01 K/cumm [facility] Blood 08/28/2024 6:00 AM PLANER OPERATOR / GRADER 08/28/2024 6:20 AM PLANER OPERATOR / GRADER us Anastasia Amaro MD LAB BLOOD ORDERABLES Final Result Performing Organization Address City/[facility]/ZIP Co de Phone Number [facility] Department [place] [address] * Type and screen (08/28/2024 6:00 AM PLANER OPERATOR / GRADER) ABO Rh O Negative Comment:Patient has previous antibody history Abiodun, indirect Negative [facility] Blood 08/28/2024 6:00 AM PLANER OPERATOR / GRADER 08/28/2024 6:54 AM PLANER OPERATOR / GRADER Narrative [facility] - 08/28/2024 7:53 AM PLANER OPERATOR / GRADER Has the patient had Daratumumab or Isatuximab in the past 6 months?->Unknown us Anastasia Amaro MD LAB BLOOD BANK TEST ORDERA BLES Final Result [facility] [place] [address] * (ABNORMAL) Comprehensive metabolic panel (08/28/2024 6:00 AM PLANER OPERATOR / GRADER) Sodium 137 135 - 145 mmol/L Potassium, pl 3.6 3.3 - 4.9 mmol/L [facility] Chloride 105 97 - 110 mmol/L [facility] CO2 21(L) 22 - 32 mmol/L [facility] Anion gap 11 2 - 15 mmol/L [facility] BUN 8 6 - 25 mg/dL [facility] Creatinine 0.52(L) 0.60 - 1.10 mg/dL [facility] Glucose 74 70 - 199 mg/dL [facility] Comment: Interpretive Data Fasting [...] Calcium 9.3 8.5 - 10.3 mg/dL [facility] Bilirubin, total 0.2 0.1 - 1.2 mg/dL [facility] Protein, pl 6.2(L) 6.5 - 8.5 g/dL [facility] Albumin 3.2(L) 3.5 - 5.0 g/dL [facility] Alk phos 96 40 - 130 Units/L [facility] ALT 25 7 - 45 Units/L [facility] AST 22 10 - 45 Units/L [facility] Blood 08/28/2024 6:00 AM PLANER OPERATOR / GRADER 08/28/2024 6:13 AM PLANER OPERATOR / GRADER us Anastasia Amaro MD LAB BLOOD ORDERABLES Final Result [facility] Department [place] [address] * eGFR (08/25/2024 6:19 AM PLANER OPERATOR / GRADER) eGFR >90 >=60 mL/min/1. 73 m2 Comment: [...] last reviewed 2021. Blood 08/25/2024 6:19 AM PLANER OPERATOR / GRADER 08/25/2024 6:33 AM PLANER OPERATOR / GRADER us Anastasia Amaro MD LAB BLOOD ORDERABLES Final Result [facility] [place] [address] * (ABNORMAL) CBC without differential (08/25/2024 6:19 AM PLANER OPERATOR / GRADER) [facility] WBC 10.5(H) 3.8 - 9.9 K/cumm Hgb 11.4(L) 11.9 - 15.5 g/dL [facility] Hct 33.4(L) 35.6 - 45.5 % [facility] Plt 299 150 - 400 K/cumm [facility] MPV 10.6 9.1 - 12.3 fL [facility] RBC 3.90 3.90 - 5.20 M/cumm [facility] MCV 85.6 81.3 - 96.4 fL [facility] MCH 29.2 27.1 - 33.3 pg [facility] MCHC 34.1 32.3 - 35.7 g/dL [facility] RDW CV 13.4 11.1 - 14.9 % [facility] RDW SD 41.7 35.7 - 48.1 fL [facility] NRBC abs 0.00 0.00 - 0.01 K/cumm [facility] Blood 08/25/2024 6:19 AM PLANER OPERATOR / GRADER 08/25/2024 6:32 AM PLANER OPERATOR / GRADER Anastasia Amaro MD LAB BLOOD ORDERABLES Final Result [facility] [place] [address] * Type and screen (08/25/2024 6:19 AM PLANER OPERATOR / GRADER) [facility] Abiodun, indirect Negative Comment:Patient has previous antibody history ABO Rh O Negative [facility] Blood 08/25/2024 6:19 AM PLANER OPERATOR / GRADER 08/25/2024 7:06 AM PLANER OPERATOR / GRADER Narrative [facility] - 08/25/2024 8:01 AM PLANER OPERATOR / GRADER Has the patient had Daratumumab or Isatuximab in the past 6 months?->Unknown us Anastasia Recinos Sondra MD LAB BLOOD BANK TEST ORDERA BLES Final Result [facility] [place] [address] * (ABNORMAL) Comprehensive metabolic panel (08/25/2024 6:19 AM PLANER OPERATOR / GRADER) Sodium 139 135 - 145 mmol/L Potassium, pl 3.5 3.3 - 4.9 mmol/L [facility] Chloride 105 97 - 110 mmol/L [facility] CO2 22 22 - 32 mmol/L [facility] Anion gap 12 2 - 15 mmol/L [facility] BUN 6 6 - 25 mg/dL [facility] Creatinine 0.53(L) 0.60 - 1.10 mg/dL [facility] Glucose 70 70 - 199 mg/dL [facility] Comment: Interpretive Data Fasting [...] Calcium 9.2 8.5 - 10.3 mg/dL [facility] Bilirubin, total 0.2 0.1 - 1.2 mg/dL [facility] Protein, pl 6.4(L) 6.5 - 8.5 g/dL [facility] Albumin 3.2(L) 3.5 - 5.0 g/dL [facility] Alk phos 92 40 - 130 Units/L [facility] ALT 22 7 - 45 Units/L [facility] AST 22 10 - 45 Units/L [facility] Blood 08/25/2024 6:19 AM PLANER OPERATOR / GRADER 08/25/2024 6:33 AM PLANER OPERATOR / GRADER Anastasia Amaro MD LAB BLOOD ORDERABLES Final Result [facility] [place] [address] * US Ob Follow Up (08/24/2024 9:37 AM PLANER OPERATOR / GRADER) Fetus# Fetus1 VIEWPOINT Estimated Weight 1,348 g&grams VIEWPOINT Placenta Details anterior VIEWPOINT Presentation Vertex; Maternal right- low VIEWPOINT Fetus# Fetus2 VIEWPOINT Estimated Weight 1,784 g&grams VIEWPOINT Placenta Details anterior VIEWPOINT Presentation Vertex; Maternal left- high (presenting) VIEWPOINT Anatomical Region Laterality Modality Abdomen N/A Ultrasound 08/24/2024 9:37 AM PLANER OPERATOR / GRADER Impressions 08/24/2024 2:06 PM PLANER OPERATOR / GRADER 1. Presumed Mo/Di twin IUP at 30w [...] Edite d * eGFR (08/22/2024 6:02 AM PLANER OPERATOR / GRADER) eGFR >90 >=60 mL/min/1. 73 m2 Comment: [...] last reviewed 2021. Blood 08/22/2024 6:02 AM PLANER OPERATOR / GRADER 08/22/2024 6:18 AM PLANER OPERATOR / GRADER us Anastasia Amaro MD LAB BLOOD ORDERABLES Final Result [facility] [place] [address] * (ABNORMAL) CBC without differential (08/22/2024 6:02 AM PLANER OPERATOR / GRADER) Pathologist [facility] WBC 12.2(H) 3.8 - 9.9 K/cumm Hgb 11.8(L) 11.9 - 15.5 g/dL [facility] Hct 34.4(L) 35.6 - 45.5 % [facility] Plt 277 150 - 400 K/cumm [facility] MPV 10.4 9.1 - 12.3 fL [facility] RBC 4.02 3.90 - 5.20 M/cumm [facility] MCV 85.6 81.3 - 96.4 fL [facility] MCH 29.4 27.1 - 33.3 pg [facility] MCHC 34.3 32.3 - 35.7 g/dL [facility] RDW CV 13.6 11.1 - 14.9 % [facility] RDW SD 42.4 35.7 - 48.1 fL [facility] NRBC abs 0.00 0.00 - 0.01 K/cumm [facility] Blood 08/22/2024 6:02 AM PLANER OPERATOR / GRADER 08/22/2024 6:18 AM PLANER OPERATOR / GRADER Anastasia Amaro MD LAB BLOOD ORDERABLES Final Result Performing Organization Address City/[facility] Co de Phone Number [facility] [place] [address] * Type and screen (08/22/2024 6:02 AM PLANER OPERATOR / GRADER) Pathologist [facility] Abiodun, indirect Negative Comment:Patient has previous antibody history ABO Rh O Negative [facility] Blood 08/22/2024 6:02 AM PLANER OPERATOR / GRADER 08/22/2024 6:24 AM PLANER OPERATOR / GRADER Narrative [facility] - 08/22/2024 7:25 AM PLANER OPERATOR / GRADER Has the patient had Daratumumab or Isatuximab in the past 6 months?->Unknown Anastasia Amaro MD LAB BLOOD BANK TEST ORDERA BLES Final Result [facility] [place] [address] * (ABNORMAL) Comprehensive metabolic panel (08/22/2024 6:02 AM PLANER OPERATOR / GRADER) Sodium 138 135 - 145 mmol/L Potassium, pl 3.7 3.3 - 4.9 mmol/L [facility] Chloride 104 97 - 110 mmol/L [facility] CO2 23 22 - 32 mmol/L [facility] Anion gap 11 2 - 15 mmol/L [facility] BUN 7 6 - 25 mg/dL [facility] Creatinine 0.53(L) 0.60 - 1.10 mg/dL [facility] Glucose 72 70 - 199 mg/dL [facility] Comment: Interpretive Data Fasting [...] Calcium 9.3 8.5 - 10.3 mg/dL [facility] Bilirubin, total 0.2 0.1 - 1.2 mg/dL [facility] Protein, pl 6.6 6.5 - 8.5 g/dL [facility] Albumin 3.2(L) 3.5 - 5.0 g/dL [facility] Alk phos 90 40 - 130 Units/L [facility] ALT 19 7 - 45 Units/L [facility] AST 18 10 - 45 Units/L [facility] Blood 08/22/2024 6:02 AM PLANER OPERATOR / GRADER 08/22/2024 6:18 AM PLANER OPERATOR / GRADER Anastasia Amrao MD LAB BLOOD ORDERABLES Final Result [facility] [place] [address] * eGFR (08/19/2024 6:25 AM PLANER OPERATOR / GRADER) [facility] eGFR >90 >=60 mL/min/1. 73 m2 [...] last reviewed 2021. Blood 08/19/2024 6:25 AM PLANER OPERATOR / GRADER 08/19/2024 7:23 AM PLANER OPERATOR / GRADER us Anastasia Amaro MD LAB BLOOD ORDERABLES Final Result [facility] [place] [address] * (ABNORMAL) CBC without differential (08/19/2024 6:25 AM PLANER OPERATOR / GRADER) [facility] WBC 11.2(H) 3.8 - 9.9 K/cumm Hgb 11.3(L) 11.9 - 15.5 g/dL [facility] Hct 33.9(L) 35.6 - 45.5 % [facility] Plt 249 150 - 400 K/cumm [facility] MPV 10.6 9.1 - 12.3 fL [facility] RBC 3.89(L) 3.90 - 5.20 M/cumm [facility] MCV 87.1 81.3 - 96.4 fL [facility] MCH 29.0 27.1 - 33.3 pg [facility] MCHC 33.3 32.3 - 35.7 g/dL [facility] RDW CV 13.4 11.1 - 14.9 % [facility] RDW SD 42.5 35.7 - 48.1 fL [facility] NRBC abs 0.00 0.00 - 0.01 K/cumm [facility] Blood 08/19/2024 6:25 AM PLANER OPERATOR / GRADER 08/19/2024 7:23 AM PLANER OPERATOR / GRADER Anastasia Amaro MD LAB BLOOD ORDERABLES Final Result Performing Organization Address [facility] Co de Phone Number [facility] Department [place] [address] * Type and screen (08/19/2024 6:25 AM PLANER OPERATOR / GRADER) [facility] Abiodun, indirect Negative ABO Rh O Negative [facility] Comment:Patient has previous antibody history Blood 08/19/2024 6:25 AM PLANER OPERATOR / GRADER 08/19/2024 7:31 AM PLANER OPERATOR / GRADER Narrative [facility] - 08/19/2024 8:22 AM PLANER OPERATOR / GRADER Has the patient had Daratumumab or Isatuximab in the past 6 months?->Unknown Anastasia Amaro MD LAB BLOOD BANK TEST ORDERA BLES Final Result Performing Organization Address [facility] Co de Phone Number [facility] Department [place] [address] * (ABNORMAL) Comprehensive metabolic panel (08/19/2024 6:25 AM PLANER OPERATOR / GRADER) [facility] Sodium 138 135 - 145 mmol/L Potassium, pl 3.7 3.3 - 4.9 mmol/L [facility] Chloride 105 97 - 110 mmol/L [facility] CO2 23 22 - 32 mmol/L [facility] Anion gap 10 2 - 15 mmol/L [facility] BUN 7 6 - 25 mg/dL [facility] Creatinine 0.54(L) 0.60 - 1.10 mg/dL [facility] Glucose 68(L) 70 - 199 mg/dL [facility] Comment: Interpretive Data Fasting [...] Calcium 9.3 8.5 - 10.3 mg/dL [facility] Bilirubin, total 0.2 0.1 - 1.2 mg/dL [facility] Protein, pl 6.3(L) 6.5 - 8.5 g/dL [facility] Albumin 3.0(L) 3.5 - 5.0 g/dL [facility] Alk phos 88 40 - 130 Units/L [facility] ALT 13 7 - 45 Units/L [facility] AST 18 10 - 45 Units/L [facility] Blood 08/19/2024 6:25 AM PLANER OPERATOR / GRADER 08/19/2024 7:23 AM PLANER OPERATOR / GRADER us Anastasia Amaro MD LAB BLOOD ORDERABLES Final Result Performing Organization Address City/State/[facility] Co de Phone Number [facility] [place] [address] * [place] Ob Limited (08/16/2024 8:35 AM PLANER OPERATOR / GRADER) Fetus# Fetus1 VIEWPOINT Placenta Details anterior VIEWPOINT Presentation Transverse, maternal right-low VIEWPOINT Fetus# Fetus2 VIEWPOINT Placenta Details anterior VIEWPOINT Presentation Vertex; Maternal left- high VIEWPOINT Anatomical Region Laterality Modality Abdomen N/A Ultrasound 08/16/2024 8:36 AM PLANER OPERATOR / GRADER Impressions 08/16/2024 2:23 PM PLANER OPERATOR / GRADER Diamniotic (presumed MCDA) TIUP at 29w1d who is admitted for preE with severe features who presents for TTTS screen.Chorionicity was not fully assessed but was previously determined to be monochorionic by the [facility] practice. Anatomic surveys were also completed [...] previously determined to be monochorionic by the [facility]. Anatomic surveys were also completed there. [...] Result * Antibody identification (08/16/2024 7:34 AM PLANER OPERATOR / GRADER) Antibody ID 1 Passive Anti-D Blood 08/16/2024 7:34 AM PLANER OPERATOR / GRADER 08/16/2024 7:34 AM PLANER OPERATOR / GRADER us Anastasia Amaro MD LAB BLOOD BANK TEST ORDERA BLES Final Result Performing Organization Address [facility] Co de Phone Number [facility] [place] [address] * eGFR (08/16/2024 6:15 AM PLANER OPERATOR / GRADER) eGFR >90 >=60 mL/min/1. 73 m2 Comment: [...] last reviewed 2021. Blood 08/16/2024 6:15 AM PLANER OPERATOR / GRADER 08/16/2024 6:29 AM PLANER OPERATOR / GRADER us Anastasia Amaro MD LAB BLOOD ORDERABLES Final Result Performing Organization Address [facility] Co de Phone Number BIA [facility] [place] [employer] [place] [address] * Thyroid Function [place] (08/16/2024 6:15 AM PLANER OPERATOR / GRADER) TSH 3.83 0.30 - 4.20 mcIUnit/mL Blood 08/16/2024 6:15 AM PLANER OPERATOR / GRADER 08/16/2024 6:29 AM PLANER OPERATOR / GRADER Anastasia Amaro MD LAB BLOOD ORDERABLES Final Result Performing Organization Address [facility] Co de Phone Number [facility] [place] [address] * (ABNORMAL) CBC without differential (08/16/2024 6:15 AM PLANER OPERATOR / GRADER) Pathologist [facility] WBC 10.9(H) 3.8 - 9.9 K/cumm Hgb 11.6(L) 11.9 - 15.5 g/dL [facility] Hct 34.0(L) 35.6 - 45.5 % [facility] Plt 257 150 - 400 K/cumm [facility] MPV 10.4 9.1 - 12.3 fL [facility] RBC 3.95 3.90 - 5.20 M/cumm [facility] MCV 86.1 81.3 - 96.4 fL [facility] MCH 29.4 27.1 - 33.3 pg [facility] MCHC 34.1 32.3 - 35.7 g/dL [facility] RDW CV 13.3 11.1 - 14.9 % [facility] RDW SD 41.5 35.7 - 48.1 fL [facility] NRBC abs 0.00 0.00 - 0.01 K/cumm [facility] Blood 08/16/2024 6:15 AM PLANER OPERATOR / GRADER 08/16/2024 6:30 AM PLANER OPERATOR / GRADER Anastasia Amaro MD LAB BLOOD ORDERABLES Final Result Performing Organization Address [facility]/State/[facility] Co de Phone Number [facility] Department [place] [address] * (ABNORMAL) Type and screen (08/16/2024 6:15 AM PLANER OPERATOR / GRADER) Pathologist [facility] Abiodun, indirect Positive(A) ABO Rh O Negative [facility] Blood 08/16/2024 6:15 AM PLANER OPERATOR / GRADER 08/16/2024 6:25 AM PLANER OPERATOR / GRADER Narrative [facility] - 08/16/2024 7:34 AM PLANER OPERATOR / GRADER Has the patient had Daratumumab or Isatuximab in the past 6 months?->Unknown us Anastasia Amaro MD LAB BLOOD BANK TEST ORDERA BLES Final Result [facility] Department [place] [address] * (ABNORMAL) Comprehensive metabolic panel (08/16/2024 6:15 AM PLANER OPERATOR / GRADER) Sodium 139 135 - 145 mmol/L Potassium, pl 3.4 3.3 - 4.9 mmol/L [facility] Chloride 105 97 - 110 mmol/L [facility] CO2 23 22 - 32 mmol/L [facility] Anion gap 11 2 - 15 mmol/L [facility] BUN 8 6 - 25 mg/dL [facility] Creatinine 0.51(L) 0.60 - 1.10 mg/dL [facility] Glucose 72 70 - 199 mg/dL [facility] Comment: Interpretive Data Fasting [...] Calcium 9.2 8.5 - 10.3 mg/dL [facility] Bilirubin, total 0.2 0.1 - 1.2 mg/dL [facility] Protein, pl 6.4(L) 6.5 - 8.5 g/dL [facility] Albumin 3.2(L) 3.5 - 5.0 g/dL [facility] Alk phos 86 40 - 130 Units/L [facility] ALT 16 7 - 45 Units/L [facility] AST 16 10 - 45 Units/L [facility] Blood 08/16/2024 6:15 AM PLANER OPERATOR / GRADER 08/16/2024 6:29 AM PLANER OPERATOR / GRADER us Anastasia Amaro MD LAB BLOOD ORDERABLES Final Result [facility] Department [place] [address] * Hepatitis C antibody Blood (05/20/2024 2:47 [...] - GENERAL ORDERABLES Final Result [facility] [address] [place] [address] from Last 3 Months or Most Recently Relevant to Health Maintenance [place] Advance Directives For more information, please contact: [phone] * Full Code (Latest Code Status on File) Date Activated Date Inactivated Comments 09/19/2024 4:34 PM 09/22/2024 3:32 PM * Full Code Date Activated Date Inactivated Comments 07/29/2024 3:05 AM 09/19/2024 4:34 PM Care Teams R D Manager Relationship Specialty Start Date End Date No, Physician PCP - General 02/25/24
== END 2024-11-15 14:45 | disposition home or self-care (01) ==
PROVIDERS: PCP Internal Medicine; Visit Provider Internal Medicine
DX: I10 Essential (primary) hypertension (principal); I51.7 Cardiomegaly
CPT/HCPCS: 93306

== ENCOUNTER 2024-12-04 11:36 | Emergency (ER) | payer OTHER, MEDICAID, SELFPAY ==
[2024-12-04 11:36] VITALS: BP 142/86; PULSE 75; RESP 16; TEMP 36.6; O2SAT 99
--- NOTE | 2024-12-04 11:38 | ED.FEMALEGU ---
HPI - Female Genitourinary General Chief complaint: Urogenital-Female Stated complaint: UTI symptoms Time Seen by Provider: 12/04/24 11:38 Source: patient Mode of arrival: ambulatory Limitations: no limitations History of Present Illness HPI Narrative: Patient is a 29-year-old female with some lower suprapubic region discomfort and pressure as well as some dysuria. This started yesterday. No other complaints. No vaginal complaints. MD elicited complaint: dysuria and UTI Pertinent past history: other ( hypertension) Onset (ago): day(s) ( 2) Location of symptoms: suprapubic Severity: mild Female Urogenital Radiation: Non-Radiating Severity scale (1-10): 2 Quality of pain: burning Consistency: intermittent Vaginal discharge: none Vaginal bleeding: none Urinary symptoms: Dysuria Exacerbating factors: none Relieving factors: none Associated symptoms: denies other symptoms Treatment prior to arrival: none Sexual activity: Yes Patient : No Related Data Home Medications ?Medication ?Instructions ?Recorded ?Confirmed ?Last Taken ?Type escitalopram oxalate 20 mg tablet 20 mg PO .QD 09/29/24 11/13/24 Unknown History famotidine 40 mg tablet 40 mg PO QHS 09/29/24 11/13/24 Unknown History nifedipine 60 mg tablet,extended 60 mg PO .Q24 09/29/24 11/13/24 09/28/24 History release propranolol 160 mg capsule,24 160 mg PO Q24H 11/13/24 11/13/24 Unknown History hr,extended release Allergies Allergy/AdvReac Type Severity Reaction Status Date / Time No Known Allergies Allergy Verified 12/04/24 11:40 Review of Systems Review of Systems: All systems reviewed & are unremarkable except as noted in HPI and below Constitutional: Constitutional: Reports no additional constitutional complaints Eyes: Eyes: Reports no additional eye complaints ENT: Reports system reviewed and no additional complaints, except as documented Cardiovascular: Cardiovascular: Reports no additional cardiovascular complaints Respiratory: Respiratory: Reports no additional respiratory complaints Gastrointestinal: Gastrointestinal: Reports no additional gastrointestinal complaints Genitourinary: Genitourinary: Reports no additional female genitourinary complaints Musculoskeletal: Musculoskeletal: Reports no additional musculoskeletal complaints Integumentary/Breasts: Skin/Breast: Reports system reviewed and no additional complaints, except as docu Neurologic: Reports system reviewed and no additional complaints, except as documented Psychiatric: Psychiatric: Reports no additional psychiatric complaints Endocrine: Endocrine: Reports no additional endocrine complaints Hematologic/Lymphatic: Hematologic/Lymphatic: Reports no additional hematologic/lymphatic complaints Allergic/Immunologic: Allergic/Immunologic: Reports no additional allergic/immunologic complaints [facility] Past Medical History Medical History (Updated 12/04/24 @ 12:06 by Javier Huston MD) Acid reflux Anxiety Irritable bowel Surgical History Surgical History History of cholecystectomy Family History Family History Mother Family history of mental disorder Sibling Family history of mental disorder Father Hypertension Grandparent Diabetes mellitus Social History Social History Smoking status: Never smoker Alcohol intake: current Gender identity (if verbalized by the patient): Female Exam Const: General: healthy appearing Nutritional Appearance: well nourished Orientation/consciousness: patient oriented x3 HENMT: Head: normal to inspection Ears: external ears normal Face/Nose/Sinus: Normal external nose present Eyes: Conjunctivae: conjunctivae normal Pupils: Equal, round and reactive pupils present EOM: EOMs intact bilaterally Neck: Neck: normal visual inspection Chest: Chest palpation & inspection: normal inspection of the chest Resp: Effort & Inspection: normal respiratory effort and not labored Auscultation: clear to auscultation bilaterally and no crackles Cardio: Rate: regular rate Rhythm: regular rhythm Heart sounds: no murmurs GI: GI Palp: Yes Soft to palpation and Yes Tenderness to palpation present (GI) ( suprapubic region) Auscultation: normal bowel sounds : General: Yes bladder normal to palpation Urinary Catheter: Urinary Catheter: patent and draining Back/Spine/Pelvis: Back: no CVA tenderness Cervical Spine: collar present Skin: General skin exam: normal color Rashes: no rashes Wounds: no wounds Neuro: General: patient oriented x3 Cranial nerves: Yes Nystagmus not present Speech: normal speech Extrem: General: normal to inspection Psych: Appearance: grossly normal Mental Status: mental status grossly normal Affect: normal affect MDM - Female Genitourinary MDM Narrative Medical decision making narrative: patient is a 29-year-old female with UTI type symptoms and we will check a UA and U preg. Lab Data Attestation: I reviewed the patient's lab results. Lab results narrative: Please see chart. Discharge Plan Discharge Clinical Impression: UTI (urinary tract infection) Qualifiers: Urinary tract infection type: acute cystitis Hematuria presence: with hematuria Qualified Code(s): N30.01 - Acute cystitis with hematuria Patient Disposition: Home, Self-Care Condition: Stable Instructions: Antibiotic Form, Urinary Tract Infection in Women (ED) Patient Language: Citizen Of [place] Prescriptions: New sulfamethoxazole-trimethoprim [Bactrim DS] 800-160 mg tablet 1 tablet PO BID 7 Days Qty: 14 0RF Rx Instructions: patient may stop at 5 days if better No Action famotidine 40 mg tablet 40 mg PO QHS escitalopram oxalate 20 mg tablet 20 mg PO .QD nifedipine 60 mg tablet extended release 60 mg PO .Q24 propranolol 160 mg capsule,extended release 24 hr 160 mg PO Q24H lisinopril 10 mg tablet 10 mg PO DAILY Qty: 30 0RF Follow-up/Referrals: Bertrand Stephen MD [Primary Care Provider] - Time of Disposition: 12:07
[2024-12-04 11:53] LABS: Add Urine Microscopic? YES; Appearance Urine Cloudy (Clear); Bilirubin Urine 1+ (Negative); Blood Urine 2+ (Negative); Color Urine Yellow (Yellow); Glucose Urine UA Negative (Negative); Ketones Urine Negative (Negative); Leukocyte Esterase Ur Trace LEU/UL (Negative); Nitrate Urine Negative (Negative); Protein Urine 1+ (Negative); Specific Grav Ur >= 1.030 (1.010-1.020); Urobilinogen Urine 0.2 mg/dL (0.2-1.0)
[2024-12-04 11:55] LABS: Pregnancy On Board Control Positive; Urine Pregnancy Test Negative
[2024-12-04 11:58] LABS: Bacteria Urine 2+ /hpf; Squamous Epithelial Cell Urine Many /hpf (Few); WBC Urine 0-5 /hpf (0-3)
[2024-12-04 12:11] VITALS: BP 142/86; PULSE 75; RESP 16; TEMP 36.6; O2SAT 99
== END 2024-12-04 12:11 | disposition home or self-care (01) ==
PROVIDERS: Emergency Provider Emergency Medicine; PCP Internal Medicine
DX: N30.01 Acute cystitis with hematuria (principal)
CPT/HCPCS: 81001; 81025; 99283

== ENCOUNTER 2024-12-05 11:26 | Outpatient (CLI) | payer OTHER, MEDICAID, SELFPAY ==
[2024-12-05 11:57] LABS: Alanine Aminotransferase 32 U/L (14-59); Albumin Level 3.9 g/dL (3.4-5.0); Alkaline Phosphatase 71 U/L (46-116); Anion Gap 10 mmol/L (4-12); Aspartate Amino Transferase 15 U/L (15-37); Bilirubin,Total 0.8 mg/dL (0.00-1.00); Blood Urea Nitrogen 9 mg/dL (7-18); Calcium 9.2 mg/dL (8.5-10.1); Carbon Dioxide 30 mmol/L (21-32); Chloride 102 mmol/L (98-108); Estimated Glomerular Filt Rate > 60; Glucose 90 mg/dL (70-99); Magnesium 2.2 mg/dL (1.8-2.4); Osmolality Calculated 292 mOsm/kg (285-295); Potassium 3.5 mmol/L (3.5-5.1); Sodium 142 mmol/L (136-145); Total Protein 7.4 g/dL (6.4-8.2)
== END 2024-12-05 11:27 | disposition home or self-care (01) ==
LOC: CHSLAB 11:27
PROVIDERS: PCP Internal Medicine; Visit Provider Internal Medicine
DX: I10 Essential (primary) hypertension (principal)
CPT/HCPCS: 36415; 80053; 83735

== ENCOUNTER 2024-12-08 01:06 | Emergency (ER) | payer OTHER, MEDICAID, SELFPAY ==
[2024-12-08 01:07] VITALS: BP 136/101; PULSE 84; RESP 18; TEMP 36; O2SAT 100
--- OUTSIDE RECORDS SUMMARY | 2024-12-08 01:08 | XMS_ITS | Referral Summary ---
Author Organization [facility] Address [address] [place] [address] Care Team Providers Care Sports Physiologist Name Role Phone No, Physician Primary Care Provider [phone] Encounters Date Type Department Care Team Description 12/06/2024 Telephone [employer] [facility] [address] [place] [address] Zoe Angeles 11/29/2024 Telephone [employer] 4 [facility] [address] [place] [address] Dia Mantilla MD nexplanon 11/04/2024 Telephone Psychiatry James Rojas MD Reminder of Appointment 11/03/2024 4:37 PM MALTED MILK SUPERVISOR - 11/03/2024 11:59 PM MALTED MILK SUPERVISOR Hospital Encounter [facility] [address] [place], [place] [id number] Encounter for routine follow-up Discharge Disposition: Discharge to home or self care 11/03/2024 1:40 PM MALTED MILK SUPERVISOR Office Visit [facility] Maternal- Medicine [address] [place] [address] Outpatient [facility] 7th Floor [address] [place] [address] Encounter for routine follow-up (Primary Dx) 10/28/[address] [facility] [place] [address] Nancy Noel, [facility] Brief Therapeutic Intervention 10/20/2024 Orders Only [facility] Maternal- Medicine [address] [place] [address] Outpatient [facility] 7th Floor [address] [place] [address] Gracy Hicks, websphere commerce architect care following delivery (Primary Dx); Preeclampsia, unspecified trimester 10/20/2024 1:00 PM MALTED MILK SUPERVISOR Office Visit [facility] Maternal- Medicine [address] [facility] 7th Floor [address] [place] [address] care following delivery (Primary Dx) 10/18/2024 1:00 PM MALTED MILK SUPERVISOR Telemedicine [facility] [place] [address] Nancy Noel, LEO Generalized anxiety disorder (Primary Dx) 10/16/2024 9:30 AM MALTED MILK SUPERVISOR - 10/16/2024 2:10 PM MALTED MILK SUPERVISOR Emergency [facility] Emergency Department [address] [place] [address] Satnam Nair MD Secondary hypertension (Primary Dx) Discharge Disposition: Discharge to home or self care 10/07/[address] [facility] 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 Discharge Disposition: Discharge to home or self care 09/19/2024 1:57 PM MALTED MILK SUPERVISOR Anesthesia Event [address] [address] Sidra Ann MD Bailey, Rei Patel MD 09/19/2024 1:30 PM MALTED MILK SUPERVISOR - 09/19/2024 4:05 PM MALTED MILK SUPERVISOR Surgery [address] [address] Josefina Peter MD SECTION 09/15/2024 9:00 AM MALTED MILK SUPERVISOR Ancillary Procedure [address] 5th [place] [address] from Last 3 Months Allergies No known active allergies Medications acetaminophen 500 mg capsuleIndicatio ns:Pain Take 2 capsules (1,000 mg total) by mouth every 6 (six) hours as needed for pain 90 tablet 4 Active cyclobenzaprine (FLEXERIL) 5 mg tablet Take 1 tablet (5 mg total) by mouth 2 (two) times a day as needed for muscle spasms 30 tablet 4 Active ferrous sulfate 325 mg (65 mg of elemental iron) tabletIndication s:Iron Deficiency Anemia Take 1 tablet (325 mg total) by mouth daily with breakfast 30 tablet 2 4 12/22/19 25 Active Additional Information Patient not taking.Reported on 11/03/2024 polyethylene glycol (MIRALAX) 17 gram/dose bulk powder Take 17 g by mouth daily as needed (constipation) 289 g 4 Active NIFEdipine (PROCARDIA XL/ADALAT CC) 60 mg 24 hr tablet Take 2 tablets (120 mg total) by mouth daily 60 tablet 2 4 12/23/19 25 Active labetaloL (NORMODYNE,TRAND ATE) 200 mg tablet Take 2 tablets (400 mg total) by mouth 3 (three) times a day 180 tablet 3 5 02/18/20 25 Active blood pressure test kit-large kitIndications:P ostpartum care following delivery,Preecla mpsia, unspecified trimester 1 kit daily Please use to check your BP daily and record 1 kit 5 Active Additional Information Patient not taking.Reported on 11/03/2024 hydrOXYzine (ATARAX) 10 mg tablet 5 Active meloxicam (MOBIC) 15 mg tablet Take 1 tablet (15 mg total) by mouth daily 5 Active nortriptyline (PAMELOR) 10 mg capsule Take 1 capsule (10 mg total) by mouth nightly as needed 5 Active sertraline (ZOLOFT) 50 mg tablet 5 Active Active Problems Problem Noted Date Diagnosed Date [...] Blood pressures well controlled on N120XL and W010YFF. CBC/CMP WNL, UPC 0.1. Enrolled in remote [...] # Disposition: Follow up task sent to [facility] scheduling pool for appointments in 2 and 6 weeks. They are enrolled in remote blood pressure monitoring for their BP check. Desires discharge home today. Service Coverage These phones are service phones and carried 27/04 in house: R1 (first call) [phone] R1 alt (second call) [phone] R4 (Chief) [phone] 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 08/29/2024 [...] Blood pressures well controlled on N120XL and [id number]. Magnesium for seizure prophylaxis. #sinus tachycardia, intermittent: [...] found out that that would be in [place] he used an expletive to express that they would not be doing that Resolved Problems Problem Noted Date Diagnosed Date Resolved Date Abdominal pain 07/06/2012 04/15/2024 Immunizations Immunization Administration Dates Next Due Influenza, Trivalent, Preservative Free, Intramu scular 07/12/2024 RSV, Bivalent, Protein Subun it Rsvpref, Diluent (Abrysvo) 09/05/2024 Tdap 08/09/2024 Varicella 09/21/2024 Social History Tobacco Use Types Packs/Day Years Used Date Smoking Tobacco: Never Smokeless Tobacco: Never Tobacco Cessation:Counseling Given: Not Answered [facility] Utilities Answer Date Recorded In the past 12 months has e [employer], [employer], or water [employer] threatened to shut off services in your [...] How often do you attend chur or judaism services? Never 07/29/2024 Do you belong to [...] staff should administer the PHQ-9) 0 07/28/2024 [facility] - Occupational [...] things needed for daily living? No 07/29/2024 [place] Depression Scale Answer Date Recorded [place] Depression Scale Total 21 10/20/2024 The thought [...] on file Legal Sex Female 2:19 AM MALTED MILK SUPERVISOR Gender Identity Not on file Sexual Orientation Not on file Last Filed Vital Signs Vital Sign Reading Time Taken Comments Blood Pressure 120/81 11/03/2024 1:53 PM MALTED MILK SUPERVISOR Pulse 116 11/03/2024 1:53 PM MALTED MILK SUPERVISOR Temperature 35.9 C (96.7 F) 10/16/2024 9:28 AM MALTED MILK SUPERVISOR Respiratory Rate 18 10/16/2024 11:0 0 AM MALTED MILK SUPERVISOR Oxygen Saturation 97% 11/03/2024 1:53 PM MALTED MILK SUPERVISOR Inhaled Oxygen Concentration - - Weight 111.5 kg (245 lb 12.8 oz) 11/03/2024 1:53 PM MALTED MILK SUPERVISOR Height 167.6 cm (5' 6 ) 10/16/2024 9:28 AM MALTED MILK SUPERVISOR Body Mass Index 39.67 10/16/2024 9:28 AM MALTED MILK SUPERVISOR Plan of Treatment Not on file Procedures Procedure Name Priority Date/Time Associated Diagnosis Comments PAP WITH REFLEX TO HIGH RISK HPV Routine 11/03/2024 4:37 PM MALTED MILK SUPERVISOR Encounter for routine follow-up THINPREP PROCESSING (MOLECULAR COMPONENT) Routine 11/03/2024 4:37 PM MALTED MILK SUPERVISOR Encounter for routine follow-up URINALYSIS, MICROSCOPIC ONLY STAT 10/16/2024 11:21 AM MALTED MILK SUPERVISOR URINE CULTURE STAT 10/16/2024 11:21 AM MALTED MILK SUPERVISOR URINALYSIS AND REFLEX TO MICROSCOPIC AND CULTURE STAT 10/16/2024 11:21 AM MALTED MILK SUPERVISOR ECG 12-LEAD STAT 10/16/2024 10:36 AM MALTED MILK SUPERVISOR EGFR Add On 10/16/2024 9:47 AM MALTED MILK SUPERVISOR DIFFERENTIAL AUTO Add On 10/16/2024 9:4 7 AM MALTED MILK SUPERVISOR COMPREHENSIVE METABOLIC PANEL Add-On 10/16/2024 9:47 AM MALTED MILK SUPERVISOR CBC WITH AUTO DIFFERENTIAL Add-On 10/16/2024 9:47 AM MALTED MILK SUPERVISOR BLEED SCREEN Timed 09/20/2024 4: 48 AM MALTED MILK SUPERVISOR ABO/RH Timed 09/20/2024 4:48 AM MALTED MILK SUPERVISOR CBC WITHOUT DIFFERENTIAL Routine 09/20/2024 4:48 AM MALTED MILK SUPERVISOR RH IMMUNE GLOBULIN EVAL Timed 09/20/2024 4:48 AM MALTED MILK SUPERVISOR SURGICAL PATHOLOGY Routine 09/19/2024 4: 06 PM MALTED MILK SUPERVISOR ANESTHESIA EPIDURAL BLOCK Routine 09/19/2024 2:45 PM MALTED MILK SUPERVISOR SECTION 09/19/2024 1:56 PM MALTED MILK SUPERVISOR TIUP Case Notes PreE w/ SF and Multiple gestation EGFR Timed 09/18/2024 6:21 AM MALTED MILK SUPERVISOR COMPREHENSIVE METABOLIC PANEL Timed 09/18/2024 6:21 AM MALTED MILK SUPERVISOR CBC WITHOUT DIFFERENTIAL Timed 09/18/2024 6:21 AM MALTED MILK SUPERVISOR TYPE AND SCREEN Timed 09/18/2024 6:21 AM MALTED MILK SUPERVISOR NONSTRESS TEST Routine 09/17/2024 2:58 PM MALTED MILK SUPERVISOR Preeclampsia, unspecified trimester 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 US OB FOLLOW UP IP Routine 09/15/2024 1:08 PM MALTED MILK SUPERVISOR EGFR Timed 09/15/2024 6:17 AM MALTED MILK SUPERVISOR COMPREHENSIVE METABOLIC PANEL Timed 09/15/2024 6:17 AM MALTED MILK SUPERVISOR CBC WITHOUT DIFFERENTIAL Timed 09/15/2024 6:17 AM MALTED MILK SUPERVISOR TYPE AND SCREEN Timed 09/15/2024 6:17 AM MALTED MILK SUPERVISOR NONSTRESS TEST Routine 09/13/2024 5:10 PM MALTED MILK SUPERVISOR Preeclampsia, unspecified trimester 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 EGFR Timed 09/12/2024 6:35 AM MALTED MILK SUPERVISOR COMPREHENSIVE METABOLIC PANEL Timed 09/12/2024 6:35 AM MALTED MILK SUPERVISOR CBC WITHOUT DIFFERENTIAL Timed 09/12/2024 6:35 AM MALTED MILK SUPERVISOR TYPE AND SCREEN Timed 09/12/2024 6:35 AM MALTED MILK SUPERVISOR EGFR Timed 09/09/2024 6:24 AM MALTED MILK SUPERVISOR COMPREHENSIVE METABOLIC PANEL Timed 09/09/2024 6:24 AM MALTED MILK SUPERVISOR CBC WITHOUT DIFFERENTIAL Timed 09/09/2024 6:24 AM MALTED MILK SUPERVISOR TYPE AND SCREEN Timed 09/09/2024 6:24 AM MALTED MILK SUPERVISOR HEPATITIS C ANTIBODY Routine 05/20/2024 2:47 PM CDT Encounter for supervision of normal first in first trimester 11 weeks gestation of from Last 3 Months or Most Recently Relevant to Health Maintenance Results * ThinPrep processing (Molecular component) (11/03/2024 4:37 PM MALTED MILK SUPERVISOR) ThinPrep processing (Molecular component) Specimen received for processing. [facility] Endocervical 11/03/2024 4:37 PM MALTED MILK SUPERVISOR 11/07/2024 8:41 AM MALTED MILK SUPERVISOR Jada Ngo NP LAB BODY FLUIDS AND STOOLS ORDERABLES Final Result BIA [facility] [place] [address] [facility] * Pap with reflex to High Risk HPV and Genotyping (Cytology Component) (11/03/2024 4:37 PM MALTED MILK SUPERVISOR) Thin prep (Pap test) 11/03/2024 4:37 PM MALTED MILK SUPERVISOR 11/03/2024 5:54 PM MALTED MILK SUPERVISOR Narrative PATHOLOGY [facility] - 11/11/2024 3:38 PM MALTED MILK SUPERVISOR EPIC results best viewed via link to PDF [facility] Nicole Brown Laboratory [place] [address] Note to Patients: This report may contain [...] Gender: F : 1995 (Age: 29) Address: [address] [place] [id number] Hospital #: [id number] Service: DATA SUPPORT SPECIALIST Location: Patient Type: [facility] SPECIMEN Taken: 11/03/2024 Received: 11/03/2024 Accessioned: 11/07/2024 [...] clinical information and biopsy results as indicated. [facility] Clinical Laboratory Improvement Amendments (CLIA) mandate that cytologic and histologic results be correlated for laboratory quality control operator & improvement standards. FOR ALL HIGH-GRADE CASES [...] determined by the Surgical Pathology Department at [facility] as part of an ongoing [...] determined by the Surgical Pathology Department of [facility]. It has not been cleared or approved by the U. S. Food and Drug Administration. Jada Ngo GLOVE PRINTER LAB CYTOLOGY ORDERA BLES Final Result PATHOLOGY [facility] 3rd Floor [place], [place] [phone] * (ABNORMAL) Urinalysis reflex to microscopic and culture Urine (10/16/2024 11:21 AM MALTED MILK SUPERVISOR) Color, ur Yellow Yellow Clarity, ur Clear [...] tendency for uric acid stone formation. Source: [facility] [employer] Current Interpretive Data was last revised on [...] to microscopic UA will be performed. [facility] ([place]) Urine 10/16/2024 11:2 1 AM MALTED MILK SUPERVISOR 10/16/2024 11:23 AM MALTED MILK SUPERVISOR Satnam Nair MD LAB MICROBIOLOGY - GENERAL O RDERABLES Final Result Performing Organization Address City/[facility]/ZIP Co de Phone Number BIA [facility] ([place]) 1 [facility] Department [place] [address] * (ABNORMAL) Urinalysis, microscopic only (10/16/2024 11:21 AM MALTED MILK SUPERVISOR) WBC, ur 11-20(A) 0 - 5 /HPF RBC, ur >50(A) 0 - 2 /HPF [facility] ([place]) Epithelial cells, squamous, ur 1-5 0 - 5 /HPF [facility] ([place]) Bacteria, ur Trace(A) [facility] ([place]) Mucous, ur Present(A) [facility] ([place]IE) Culture Reflex Comment Reflex to urine culture will be performed. [facility] ([place]) Urine 10/16/2024 11:2 1 AM MALTED MILK SUPERVISOR 10/16/2024 11:23 AM MALTED MILK SUPERVISOR Satnam Nair MD LAB URINE ORDERABLES Final R esult Performing Organization Address [facility]/ZIP Co de Phone Number [facility] ([place]) 1 [facility] Department [place] [address] * Urine culture Urine (10/16/2024 11:21 AM MALTED MILK SUPERVISOR) Report Final Report: Less than 100,000 colonies/mL (clinically insignificant growth based on current clinical standards) Comment:Testing performed by : [facility], [address] [facility], [place]., [address] Organism (CLINICALLY INSIGNIFICANT GROWTH [facility] ([place]IE) Urine 10/16/2024 11:2 1 AM MALTED MILK SUPERVISOR 10/16/2024 2:00 PM MALTED MILK SUPERVISOR Narrative [facility] ([place]) - 10/17/2024 3:36 PM MALTED MILK SUPERVISOR Urine culture reflexed based upon urinalysis results. Testing performed by [facility] Microbiology Laboratory ([phone]) Satnam Nair MD LAB MICROBIOLOGY - GENERAL O RDERABLES Final Result [facility] ([place]) 1 [facility] Department [place] [address] * ECG 12 lead (10/16/2024 10:36 AM MALTED MILK SUPERVISOR) 10/16/2024 10:3 6 AM MALTED MILK SUPERVISOR Narrative [facility] - 10/17/2024 8:41 AM MALTED MILK SUPERVISOR Vent Rate: 65 bpm RR Interval: 922 msec TN Interval: 147 msec QRS Duration: 101 msec QT Interval: 408 msec QTC Interval: 419 msec P-R-T [place]: 54 - 21 - 47 degrees IMPRESSION: SINUS RHYTHM NORMAL ECG Electronically Signed By: Dallas Ahn MD Satnam Nair MD ECG ORDERABLES Final Result Performing Organization Address [facility] Co de Phone Number [facility] [employer] [facility] * eGFR (10/16/2024 9:47 AM MALTED MILK SUPERVISOR) eGFR >90 >=60 mL/min/1. 73 m2 Comment: [...] last reviewed 2021. Blood 10/16/2024 9:47 AM MALTED MILK SUPERVISOR 10/16/2024 10:32 AM MALTED MILK SUPERVISOR us Stanam Nair MD LAB BLOOD ORDERABLES Final R esult [facility] ([place]) 1 [facility] Department [place] [address] * Differential, auto (10/16/2024 9:47 AM MALTED MILK SUPERVISOR) Neutrophil abs 2.8 1.5 - 6.5 K/cumm [...] revised on 2018. Blood 10/16/2024 9:47 AM MALTED MILK SUPERVISOR 10/16/2024 10:32 AM MALTED MILK SUPERVISOR Satnam Nair MD LAB BLOOD ORDERABLES Final R esult [facility] ([place]) 1 [facility] Department [place] [address] * CBC with auto differential (10/16/2024 9:47 AM MALTED MILK SUPERVISOR) WBC 4.5 3.8 - 9.9 K/cumm Hgb [...] [facility] ([place]) Blood 10/16/2024 9:47 AM MALTED MILK SUPERVISOR 10/16/2024 10:32 AM MALTED MILK SUPERVISOR Satnam Nair MD LAB BLOOD ORDERABLES Final R esult [facility] ([place]) 1 [facility] Department [place] [address] * Comprehensive metabolic panel (10/16/2024 9:47 AM MALTED MILK SUPERVISOR) Sodium 140 135 - 145 mmol/L Potassium, [...] (FREDDIE) Albumin 4.4 3.5 - 5.0 g/dL [facility] ([place]) Alk phos 57 40 - 130 Units/L [facility] ([place]) ALT 8 7 - 45 Units/L [facility] ([place]) AST 10 10 - 45 Units/L [facility] Blood 10/16/2024 9:47 AM MALTED MILK SUPERVISOR 10/16/2024 10:32 AM MALTED MILK SUPERVISOR us Satnam Nair MD LAB BLOOD ORDERABLES Final R esult [facility] ([place]) 1 [facility] Department [place] [address] * Rh Immune Globulin Eval (09/20/2024 4:48 AM MALTED MILK SUPERVISOR) RhIg Administration 1 vial of Rh Immune Globulin (300 mcg dose) RhIg Eligible Yes, eligible [facility] Blood 09/20/2024 4:48 AM MALTED MILK SUPERVISOR 09/20/2024 5:03 AM MALTED MILK SUPERVISOR Narrative [facility] - 09/20/2024 5:36 AM MALTED MILK SUPERVISOR Number of weeks ?->20 weeks or greater antibody screen result:->Negative Rhogam given?->Given Date Given?->08/01/24 Number of vials requested:->1 us Sara Eng MD LAB BLOOD BANK TEST ORDERABL ES Final Result Performing Organization Address City/[facility]/ZIP Co de Phone Number [facility] Department [place] [address] * Bleed Screen (09/20/2024 4:48 AM MALTED MILK SUPERVISOR) Bleed Screen Negative Blood 09/20/2024 4:48 AM MALTED MILK SUPERVISOR 09/20/2024 5:03 AM MALTED MILK SUPERVISOR Rey Quinonez MD LAB BLOOD BANK TEST ORDERABLE S Final Result [facility] Department [place] [address] * ABO/Rh (09/20/2024 4:48 AM MALTED MILK SUPERVISOR) [facility] ABO Rh O Negative Blood 09/20/2024 4:48 AM MALTED MILK SUPERVISOR 09/20/2024 5:03 AM MALTED MILK SUPERVISOR us Rey Quinonez MD LAB BLOOD BANK TEST ORDERABLE S Final Result Performing Organization Address [facility] Co de Phone Number [facility] Department [place] [address] * (ABNORMAL) CBC without differential (09/20/2024 4:48 AM MALTED MILK SUPERVISOR) [facility] WBC 10.3(H) 3.8 - 9.9 K/cumm [...] [facility] Blood 09/20/2024 4:48 AM MALTED MILK SUPERVISOR 09/20/2024 5:11 AM MALTED MILK SUPERVISOR us Sara Eng MD LAB BLOOD ORDERABLES Final R esult Performing Organization Address City/[facility]/ZIP Co de Phone Number [facility] [place] [address] * Surgical pathology (09/19/2024 4:06 PM MALTED MILK SUPERVISOR) Tissue (Placenta) 09/19/2024 4:06 PM MALTED MILK SUPERVISOR 09/20/2024 8:37 AM MALTED MILK SUPERVISOR Narrative PATHOLOGY [facility] - 09/26/2024 2:16 PM MALTED MILK SUPERVISOR EPIC results best viewed via link to PDF [facility] Nicole Brown Laboratory of Surgical Pathology [facility], [place] [address] Note to Patients: This report may contain [...] Gender: F : 1995 (Age: 29) Address: [address] [place], [place] [phone] Hospital #: [id number] Taken:09/19/2024 Received:09/20/2024 Reported: 09/26/2024 Patient Type: [facility] Inpatient Service: Obstetrics Location: [place] [address] Physician(s): MD Sara Parker M.D. Diagnosis: Placenta, delivery - 662 grams diamnionic, monochorionic, pre-term twin placenta - Acute atherosis - Accelerated villous maturation -Trivascular cords with no histopathologic abnormalities [facility]/09/26/2024 14:16 By this signature, I attest [...] discrete lesions or infarcts are grossly identified. [employer] Worker sections are submitted: A1 = arbitrarily assigned twin A, cord and membranes; A2-4 = twin A, auto claim representative parenchyma; A5 = common membrane and T-zone; A6 = arbitrarily assigned twin B, cord and membranes; A7-9 = twin B, auto claim representative parenchyma. Jar 3. sxv/09/21/2024 11:11 PA(s): Catalino Hernandez MS, FREDRICK ([facility])CM By this signature, I attest that the above diagnosis is based upon my personal examination of the slides(and/or other material). Addenda/Procedures The performance characteristics of some immunohistochemical stains, fluorescence in-situ hybridization tests and immunophenotyping by flow cytometry cited in this report (if any) were determined by the Surgical Pathology and Flow Cytometry Departments at [facility] as part of an ongoing [...] Surgical Pathology and Flow Cytometry Departments of [facility]. It has not been cleared or approved by the U. S. Food and Drug Administration. IMAGES AND SCANNED DOCUMENTS, IF INCLUDED, ONLY VIEWABLE IN PDF VERSION OF REPORT us Sara Eng MD LAB PATHOLOGY ORDERABLES Fin al Result PATHOLOGY [facility] 3rd Floor [place], [place] [phone] * Epidural Block (09/19/2024 2:45 PM MALTED MILK SUPERVISOR) Narrative Abena Denton MD - 09/19/2024 2:45 PM MALTED MILK SUPERVISOR Abena Denton MD 09/19/2024 2:50 PM Epidural [...] Final Result * eGFR (09/18/2024 6:21 AM MALTED MILK SUPERVISOR) [facility] eGFR >90 >=60 mL/min/1. 73 m2 [...] last reviewed 2021. Blood 09/18/2024 6:21 AM MALTED MILK SUPERVISOR 09/18/2024 6:32 AM MALTED MILK SUPERVISOR us Anastasia Amaro MD LAB BLOOD ORDERABLES Final Result [facility] [place] [address] * (ABNORMAL) CBC without differential (09/18/2024 6:21 AM MALTED MILK SUPERVISOR) [facility] WBC 10.0(H) 3.8 - 9.9 K/cumm Hgb [...] [facility] Blood 09/18/2024 6:21 AM MALTED MILK SUPERVISOR 09/18/2024 6:32 AM MALTED MILK SUPERVISOR Anastasia Amaro MD LAB BLOOD ORDERABLES Final Result Performing Organization Address City/[facility] Co de Phone Number [facility] [place] [address] * Type and screen (09/18/2024 6:21 AM MALTED MILK SUPERVISOR) [facility] Abiodun, indirect Negative ABO Rh O Negative [facility] Blood 09/18/2024 6:21 AM MALTED MILK SUPERVISOR 09/18/2024 6:35 AM MALTED MILK SUPERVISOR Narrative [facility] - 09/18/2024 7:42 AM MALTED MILK SUPERVISOR Has the patient had Daratumumab or Isatuximab in the past 6 months?->Unknown Anastasia Amaro MD LAB BLOOD BANK TEST ORDERA BLES Final Result Performing Organization Address [facility] Co de Phone Number [facility] [place] [address] * (ABNORMAL) Comprehensive metabolic panel (09/18/2024 6:21 AM MALTED MILK SUPERVISOR) [facility] Sodium 134(L) 135 - 145 mmol/L Potassium, pl 3.8 3.3 - 4.9 mmol/L [facility] Chloride 105 97 - 110 mmol/L [facility] CO2 23 22 - 32 mmol/L [facility] Anion gap 6 2 [...] phos 125 40 - 130 Units/L [facility] ALT 14 7 - 45 Units/L [facility] AST 16 10 - 45 Units/L [facility] Blood 09/18/2024 6:21 AM MALTED MILK SUPERVISOR 09/18/2024 6:32 AM MALTED MILK SUPERVISOR us Anastasia Amaro MD LAB BLOOD ORDERABLES Final Result [facility] [place] [address] * nonstress test (09/17/2024 2:58 PM MALTED MILK SUPERVISOR) Narrative Sandra Christy MD - 09/17/2024 2:58 PM MALTED MILK SUPERVISOR Joellen Schilling MD 09/17/2024 4:04 PM nonstress test Date/Time: 09/17/2024 2:58 PM Performed by: Maureen Calix MD Authorized by: Ana M Rogers MD us Ana M Rogers MD OB GYNE ORDERABLES Fi nal Result * US Ob Follow Up (09/15/2024 1:08 PM MALTED MILK SUPERVISOR) Fetus# Fetus1 VIEWPOINT Estimated Weight 1,709 g&grams VIEWPOINT Placenta Details anterior VIEWPOINT Presentation Vertex; Maternal right- low VIEWPOINT Fetus# Fetus2 VIEWPOINT Estimated Weight 2,585 g&grams VIEWPOINT Placenta Details anterior VIEWPOINT Presentation Vertex; Maternal left- high VIEWPOINT Anatomical Region Laterality Modality Abdomen N/A Ultrasound 09/15/2024 1:08 PM MALTED MILK SUPERVISOR Impressions 09/15/2024 2:24 PM MALTED MILK SUPERVISOR Diamniotic (presumed MCDA) TIUP at 33w33d who is admitted for preE with severe features who presents for growth US was previously determined to be monochorionic by the [facility] MFM practice. A thin dividing membrane [...] communicated to Dr. Schilling. Narrative Procedure Note iNni Cortez MD - 09/15/2024 IMPRESSION: Diamniotic (presumed MCDA) TIUP at 33w33d who is admitted for preE withsevere features who presents for growth US was previously determined to be monochorionic by the [facility] MFMpractice. A thin dividing membrane and [...] R esult * eGFR (09/15/2024 6:17 AM MALTED MILK SUPERVISOR) eGFR >90 >=60 mL/min/1. 73 m2 Comment: [...] last reviewed 2021. Blood 09/15/2024 6:17 AM MALTED MILK SUPERVISOR 09/15/2024 6:31 AM MALTED MILK SUPERVISOR us Anastasia Amaro MD LAB BLOOD ORDERABLES Final Result [facility] [place] [address] * (ABNORMAL) CBC without differential (09/15/2024 6:17 AM MALTED MILK SUPERVISOR) WBC 10.1(H) 3.8 - 9.9 K/cumm Hgb [...] [facility] Blood 09/15/2024 6:17 AM MALTED MILK SUPERVISOR 09/15/2024 6:31 AM MALTED MILK SUPERVISOR Anastasia Amaro MD LAB BLOOD ORDERABLES Final Result Performing Organization Address [facility] Co de Phone Number [facility] [place] [address] * Type and screen (09/15/2024 6:17 AM MALTED MILK SUPERVISOR) [facility] Abiodun, indirect Negative Comment:Patient has previous antibody history ABO Rh O Negative [facility] Blood 09/15/2024 6:17 AM MALTED MILK SUPERVISOR 09/15/2024 6:30 AM MALTED MILK SUPERVISOR Narrative [facility] - 09/15/2024 7:57 AM MALTED MILK SUPERVISOR Has the patient had Daratumumab or Isatuximab in the past 6 months?->Unknown Anastasia Amaro MD LAB BLOOD BANK TEST ORDERA BLES Final Result Performing Organization Address [facility] de Phone Number [facility] [address] * (ABNORMAL) Comprehensive metabolic panel (09/15/2024 6:17 AM MALTED MILK SUPERVISOR) [facility] Sodium 139 135 - 145 mmol/L [...] 2022. Calcium 9.0 8.5 - 10.3 mg/dL [facility] Bilirubin, total <0.2 0.1 - 1.2 mg/dL [facility] Protein, pl 6.4(L) 6.5 - 8.5 g/dL [facility] Albumin 3.0(L) 3.5 - 5.0 g/dL [facility] Alk phos 124 40 - 130 Units/L [facility] ALT 19 7 - 45 Units/L [facility] AST 20 10 - 45 Units/L [facility] Blood 09/15/2024 6:17 AM MALTED MILK SUPERVISOR 09/15/2024 6:31 AM MALTED MILK SUPERVISOR us Anastasia Amaro MD LAB BLOOD ORDERABLES Final Result [facility] [place] [address] * nonstress test (09/13/2024 5:10 PM MALTED MILK SUPERVISOR) Narrative Sandra Christy MD - 09/13/2024 5:10 PM MALTED MILK SUPERVISOR BolaAnastasia Bay MD 09/13/2024 5:21 PM 27 [...] nal Result * eGFR (09/12/2024 6:35 AM MALTED MILK SUPERVISOR) eGFR >90 >=60 mL/min/1. 73 m2 Comment: [...] last reviewed 2021. Blood 09/12/2024 6:35 AM MALTED MILK SUPERVISOR 09/12/2024 6:51 AM MALTED MILK SUPERVISOR Anastasia Amaro MD LAB BLOOD ORDERABLES Final Result [facility] [place] [address] * (ABNORMAL) CBC without differential (09/12/2024 6:35 AM MALTED MILK SUPERVISOR) WBC 10.0(H) 3.8 - 9.9 K/cumm Hgb [...] [facility] Blood 09/12/2024 6:35 AM MALTED MILK SUPERVISOR 09/12/2024 6:52 AM MALTED MILK SUPERVISOR Anastasia Amaro MD LAB BLOOD ORDERABLES Final Result Performing Organization Address [facility] Co de Phone Number [facility] [place] [address] * Type and screen (09/12/2024 6:35 AM MALTED MILK SUPERVISOR) Pathologist [facility] ABO Rh O Negative Abiodun, indirect Negative [facility] Comment:Patient has previous antibody history Blood 09/12/2024 6:35 AM MALTED MILK SUPERVISOR 09/12/2024 6:48 AM MALTED MILK SUPERVISOR Narrative [facility] - 09/12/2024 7:49 AM MALTED MILK SUPERVISOR Has the patient had Daratumumab or Isatuximab in the past 6 months?->Unknown Anastasia Amaro MD LAB BLOOD BANK TEST ORDERA BLES Final Result Performing Organization Address [facility] [place] [address] * (ABNORMAL) Comprehensive metabolic panel (09/12/2024 6:35 AM MALTED MILK SUPERVISOR) [facility] Sodium 139 135 - 145 mmol/L [...] total <0.2 0.1 - 1.2 mg/dL [facility] Protein, pl 6.4(L) 6.5 - 8.5 g/dL [facility] Albumin 3.1(L) 3.5 - 5.0 g/dL [facility] Alk phos 122 40 - 130 Units/L [facility] ALT 22 7 - 45 Units/L [facility] AST 23 10 - 45 Units/L [facility] Blood 09/12/2024 6:35 AM MALTED MILK SUPERVISOR 09/12/2024 6:51 AM MALTED MILK SUPERVISOR us Anastasia Amaro MD LAB BLOOD ORDERABLES Final Result [facility] [place] [address] * eGFR (09/09/2024 6:24 AM MALTED MILK SUPERVISOR) eGFR >90 >=60 mL/min/1. 73 m2 Comment: [...] last reviewed 2021. Blood 09/09/2024 6:24 AM MALTED MILK SUPERVISOR 09/09/2024 6:52 AM MALTED MILK SUPERVISOR Anastasia Amaro MD LAB BLOOD ORDERABLES Final Result Performing Organization Address City/[facility]/ZIP Co de Phone Number [facility] [place] [address] * (ABNORMAL) CBC without differential (09/09/2024 6:24 AM MALTED MILK SUPERVISOR) WBC 8.6 3.8 - 9.9 K/cumm Hgb [...] [facility] Blood 09/09/2024 6:24 AM MALTED MILK SUPERVISOR 09/09/2024 6:52 AM MALTED MILK SUPERVISOR us Anastasia Amaro MD LAB BLOOD ORDERABLES Final Result Performing Organization Address City/[facility]/ZIP Co de Phone Number [facility] [place] [address] * Type and screen (09/09/2024 6:24 AM MALTED MILK SUPERVISOR) ABO Rh O Negative Abiodun, indirect Negative [facility] Comment:Patient has previous antibody history Blood 09/09/2024 6:24 AM MALTED MILK SUPERVISOR 09/09/2024 7:19 AM MALTED MILK SUPERVISOR Narrative [facility] - 09/09/2024 8:51 AM MALTED MILK SUPERVISOR Has the patient had Daratumumab or Isatuximab in the past 6 months?->Unknown Anastasia Amaro MD LAB BLOOD BANK TEST ORDERA BLES Final Result [facility] [place] [address] * (ABNORMAL) Comprehensive metabolic panel (09/09/2024 6:24 AM MALTED MILK SUPERVISOR) Sodium 141 135 - 145 mmol/L Potassium, [...] Calcium 8.9 8.5 - 10.3 mg/dL [facility] Bilirubin, total <0.2 0.1 - 1.2 mg/dL [facility] Protein, pl 6.2(L) 6.5 - 8.5 g/dL [facility] Albumin 3.2(L) 3.5 - 5.0 g/dL [facility] Alk phos 117 40 - 130 Units/L [facility] ALT 22 7 - 45 Units/L [facility] AST 23 10 - 45 Units/L [facility] Blood 09/09/2024 6:24 AM MALTED MILK SUPERVISOR 09/09/2024 6:52 AM MALTED MILK SUPERVISOR Anastasia Amaro MD LAB BLOOD ORDERABLES Final Result [facility] [place] [address] * Hepatitis C antibody Blood (05/20/2024 2:47 [...] LAB MICROBIOLOGY - GENERAL ORDERABLES Final Result [facility] [address] [place] [address] from Last 3 Months or Most Recently Relevant to Health Maintenance Insurance [employer] [facility] [employer] [facility] Advance Directives For more information, please contact: [phone] * Full Code (Latest Code Status on File) Date Activated Date Inactivated Comments 09/19/2024 4:34 PM 09/22/2024 3:32 PM * Full Code Date Activated Date Inactivated Comments 07/29/2024 3:05 AM 09/19/2024 4:34 PM Care Teams Sports Physiologist Relationship Specialty Start Date End Date No, Physician PCP - General 02/25/24
--- OUTSIDE RECORDS SUMMARY | 2024-12-08 01:09 | XMS_ITS | Encounter Summary ---
Author Organization [facility] Healthcare Address [address] [place] [address] Care Team Providers Care Sorter Operator Name Role Phone No, Physician Primary Care Provider [phone] Reason for Visit * Reason Onset Date Comments nexplanon 11/29/2024 Encounter Details Date Type Department Care Team (Late st Contact Info) Description 11/29/2024 Telephone 13th Lab [address] [facility] [address] [place] [address] Dia Mantilla MD [address] [place] [address] [address] [place] [address] nexplanon Social History Tobacco Use Types Packs/Day Years Used Date Smoking Tobacco: Never Smokeless Tobacco: Never [facility] Utilities Answer Date Recorded In the past 12 months has [facility] electric, gas, oil, or water [employer] threatened to shut off services in your [...] How often do you attend chur or yazidi services? Never 07/29/2024 Do you belong to any clubs o r organizations such as judaism groups, unions, fraternal or athletic groups, or [...] staff should administer the PHQ-9) 0 07/28/2024 [facility] - Occupational Stress Questionnaire Answer Date [...] things needed for daily living? No 07/29/2024 Sheridan Depression Scale Answer Date Recorded [place] Depression Scale Total 21 10/20/2024 The thought [...] any time in the past 12 m [facility], were you homeless or living in [...] on file Legal Sex Female 2:19 AM SQL ETL DEVELOPER Gender Identity Not on file Sexual Orientation Not on file documented as of this encounter Miscellaneous Notes * Telephone Encounter - Beata Joy RN - 12/07/2024 9:18 AM CST [phone] Called and left patient another voicemail stating I was following up with her after receiving her voicemail to get her nexplanon removed. I will await patient to call back. Beata, RN ETL DEVELOPER * Telephone Encounter - Beata Joy RN - 11/29/2024 4:52 PM CST [phone] Called and left VM for patient stating I was calling her back as she left a VM stating she wanted her nexplanon removed. I advised patient to call back to see why she is wanting it out. Beata, RN ETL DEVELOPER documented in this encounter Plan of Treatment Not on file documented as of this encounter Visit Diagnoses Not on filedocumented in this encounter Care Teams Sorter Operator Relationship Specialty Start Date End Date No, Physician PCP - General 02/25/24 documented as of this encounter
--- OUTSIDE RECORDS SUMMARY | 2024-12-08 01:09 | XMS_ITS | Encounter Summary ---
Author Organization [facility] Address [address] [place] [id number] Care Team Providers Care Plant Security Guard Name Role Phone Unavailable Primary Care Provider Unavailabl e Encounter Details Date Type Department Care Team (Late st Contact Info) Description 03/12/2019 Abstract [facility]FL CONVERSION [address] [place] [address] , Generic Conversion, Social History Tobacco Use Types Packs/Day Years Used Date Smoking Tobacco: Never Assessed Comments Unknown Sex and Gender Information Value Date Recorded Sex Assigned at Not on file Legal Sex Female 9:48 PM ARBORIST Gender Identity Not on file Sexual Orientation Not on file documented as of this encounter Plan of Treatment Not on file documented as of this encounter Visit Diagnoses Not on filedocumented in this encounter Additional Health Concerns Infection Onset Date Last Indicated Resolved Time C. difficile 10/20/2018 10/20/2018 documented as of this encounter
--- OUTSIDE RECORDS SUMMARY | 2024-12-08 01:09 | XMS_ITS | Clinical Summary ---
Author Organization [facility] Address [address] [place] [address] Care Team Providers Care Process Engineering Manager Name Role Phone No, Physician Primary Care Provider [phone] Allergies No known active allergies Medications acetaminophen [...] Blood pressures well controlled on N120XL and N273WMR. CBC/CMP WNL, UPC 0.1. Enrolled in remote [...] # Disposition: Follow up task sent to [facility] scheduling pool for appointments in 2 and 6 weeks. They are enrolled in remote blood pressure monitoring for their BP check. Desires discharge home today. 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 Magnesium for seizure prophylaxis. #sinus tachycardia, intermittent: [...] found out that that would be in [place] he used an expletive to express that they would not be doing that Resolved Problems Problem Noted Date Diagnosed Date Resolved Date Abdominal pain 07/06/2012 04/15/2024 Encounters Date Type Department Care Team Description 12/06/2024 Telephone [facility] [facility] [address] [place] [address] [address] [place] [phone] Zoe Angeles 11/29/2024 Telephone [employer] [facility] [address] [place] [address] [address] [place] [phone] Dia Mantilla MD [email or web address] 11/04/2024 Telephone Psychiatry James Rojas MD Reminder of Appointment 11/03/2024 4:37 PM SQUEEGEE TENDER - 11/03/2024 11:59 PM SQUEEGEE [place] [address] Encounter for routine follow-up Discharge Disposition: Discharge to home or self care 11/03/2024 1:40 PM SQUEEGEE TENDER Office Visit [facility] Maternal- Medicine [address] [place] [address] 7th Floor [address] [place] [address] Encounter for routine follow-up (Primary Dx) 10/28/2024 [place] [address] Nancy Noel, [place] CLASSROOM TUTOR Pb Brief Therapeutic Intervention 10/20/2024 1:00 PM SQUEEGEE TENDER Office Visit [facility] Maternal- Medicine [address] [place] [address] 7th Floor [address] [place] [address] care following delivery (Primary Dx) 10/20/2024 Orders Only [facility] Maternal- Medicine [address] [place] [address] Floor [address] [place] [address] Gracy Hicks RN Postpartum care following delivery (Primary Dx); Preeclampsia, unspecified trimester 10/18/2024 1:00 PM SQUEEGEE [place] [address] Nancy Noel, LEO Generalized anxiety disorder (Primary Dx) 10/16/2024 9:30 AM SQUEEGEE TENDER - 10/16/2024 2:10 PM SQUEEGEE TENDER Emergency [facility] Emergency Department [address] [place] [address] Satnam Nair MD Secondary hypertension (Primary Dx) Discharge Disposition: Discharge to home or self care 10/07/2024 [place] [address] Nancy Noel, [place] CLASSROOM TUTOR Pb Initial Contact 09/30/2024 Encounter [facility] [address] [place] [address] 09/25/2024 Encounter [facility] [address] [place] [address] 09/19/2024 1:57 PM SQUEEGEE TENDER Anesthesia Event [address] [address] Sidra Ann MD Bailey, Cody Allen, MD 09/19/2024 1:30 PM SQUEEGEE TENDER - 09/19/2024 4:05 PM SQUEEGEE TENDER Surgery [address] [address] Josefina Peter MD SECTION 09/15/2024 9:00 AM SQUEEGEE TENDER Ancillary Procedure [address] 5th [place] [address] 07/29/2024 2:42 AM CDT - 09/22/2024 11:26 AM SQUEEGEE TENDER Hospital Encounter [address] [address] Anastasia Amaro MD Bligard, MD Sumanth Fitzgerald, MD Albertina Tinoco, Sara Olsen MD Preeclampsia, unspecified trimester (Primary Dx); Twin , unable to determine number of placenta and number of amniotic sacs, antepartum, unspecified trimester [O30.099]; 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 Discharge Disposition: Discharge to home or self care from Last 3 Months Immunizations Immunization Administration Dates Next Due Influenza, [...] Grandmother Cancer Neg 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 04/15/24 Relation Name Status Comments Brother Father Maternal Grandfather Maternal Grandmother Mother Other 1 Other 2 Other 3 Other 4 Paternal Grandfather Paternal Grandmother Social History Tobacco Use Types Packs/Day Years Used Date Smoking Tobacco: Never Smokeless Tobacco: Never Tobacco Cessation:Counseling Given: Not Answered [facility] Utilities Answer Date Recorded In the past 12 months has th e [employer], gas, oil, or water company threatened to [...] any clubs o r organizations such as scientology groups, unions, fraternal or athletic groups, or [...] the PHQ-9) 0 07/28/2024 [facility] - Occupational Stress Questionnaire Answer Date [...] things needed for daily living? No 07/29/2024 Myra Depression Scale Answer Date Recorded Myra Depression Scale Total 21 10/20/2024 The thought [...] on file Legal Sex Female 2:19 AM SQUEEGEE TENDER Gender Identity Not on file Sexual [...] /Epidu ral N Livin g 9 9 ReginoMasood Goodman MD Complications:None Delivery Location:[facility] Main C ampus ([facility] L AND D PROCEDURE) 2023 34w 0d 0h 03m 0h 03m 1.92 kg (4 lb 3.7 oz) M C-Sec tion Combin ed Spinal /Epidu ral N Livin g 8 9 Morales J Masood Lea MD Complications:None Delivery Location:[facility] Main C ampus ([facility] L AND D PROCEDURE) Last Filed Vital Signs Vital Sign Reading Time Taken Comments Blood Pressure 120/81 11/03/2024 1:53 PM SQUEEGEE TENDER Pulse 116 11/03/2024 1:53 PM SQUEEGEE TENDER Temperature 35.9 C (96.7 F) 10/16/2024 9:28 AM SQUEEGEE TENDER Respiratory Rate 18 10/16/2024 11:0 0 AM SQUEEGEE TENDER Oxygen Saturation 97% 11/03/2024 1:53 PM SQUEEGEE TENDER Inhaled Oxygen Concentration - - Weight 111.5 kg (245 lb 12.8 oz) 11/03/2024 1:53 PM SQUEEGEE TENDER Height 167.6 cm (5' 6 ) 10/16/2024 9:28 AM SQUEEGEE TENDER Body Mass Index 39.67 10/16/2024 9:28 AM SQUEEGEE TENDER Plan of Treatment Health Maintenance Due Date [...] HIGH RISK HPV Routine 11/03/2024 4:37 PM SQUEEGEE TENDER Encounter for routine follow-up THINPREP PROCESSING (MOLECULAR COMPONENT) Routine 11/03/2024 4:37 PM SQUEEGEE TENDER Encounter for routine follow-up URINALYSIS, MICROSCOPIC ONLY STAT 10/16/2024 11:21 AM SQUEEGEE TENDER URINE CULTURE STAT 10/16/2024 11:21 AM SQUEEGEE TENDER URINALYSIS AND REFLEX TO MICROSCOPIC AND CULTURE STAT 10/16/2024 11:21 AM SQUEEGEE TENDER ECG 12-LEAD STAT 10/16/2024 10:36 AM SQUEEGEE TENDER EGFR Add On 10/16/2024 9:47 AM SQUEEGEE TENDER DIFFERENTIAL AUTO Add On 10/16/2024 9:4 7 AM SQUEEGEE TENDER COMPREHENSIVE METABOLIC PANEL Add-On 10/16/2024 9:47 AM SQUEEGEE TENDER CBC WITH AUTO DIFFERENTIAL Add-On 10/16/2024 9:47 AM SQUEEGEE TENDER BLEED SCREEN Timed 09/20/2024 4: 48 AM SQUEEGEE TENDER ABO/RH Timed 09/20/2024 4:48 AM SQUEEGEE TENDER CBC WITHOUT DIFFERENTIAL Routine 09/20/2024 4:48 AM SQUEEGEE TENDER RH IMMUNE GLOBULIN EVAL Timed 09/20/2024 4:48 AM SQUEEGEE TENDER SURGICAL PATHOLOGY Routine 09/19/2024 4: 06 PM SQUEEGEE TENDER ANESTHESIA EPIDURAL BLOCK Routine 09/19/2024 2:45 PM SQUEEGEE TENDER SECTION 09/19/2024 1:56 PM SQUEEGEE TENDER TIUP Case Notes PreE w/ SF and Multiple gestation EGFR Timed 09/18/2024 6:21 AM SQUEEGEE TENDER COMPREHENSIVE METABOLIC PANEL Timed 09/18/2024 6:21 AM SQUEEGEE TENDER CBC WITHOUT DIFFERENTIAL Timed 09/18/2024 6:21 AM SQUEEGEE TENDER TYPE AND SCREEN Timed 09/18/2024 6:21 AM SQUEEGEE TENDER NONSTRESS TEST Routine 09/17/2024 2:58 PM SQUEEGEE TENDER Preeclampsia, unspecified trimester 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 US OB FOLLOW UP IP Routine 09/15/2024 1:08 PM SQUEEGEE TENDER EGFR Timed 09/15/2024 6:17 AM SQUEEGEE TENDER COMPREHENSIVE METABOLIC PANEL Timed 09/15/2024 6:17 AM SQUEEGEE TENDER CBC WITHOUT DIFFERENTIAL Timed 09/15/2024 6:17 AM SQUEEGEE TENDER TYPE AND SCREEN Timed 09/15/2024 6:17 AM SQUEEGEE TENDER NONSTRESS TEST Routine 09/13/2024 5:10 PM SQUEEGEE TENDER Preeclampsia, unspecified trimester 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 EGFR Timed 09/12/2024 6:35 AM SQUEEGEE TENDER COMPREHENSIVE METABOLIC PANEL Timed 09/12/2024 6:35 AM SQUEEGEE TENDER CBC WITHOUT DIFFERENTIAL Timed 09/12/2024 6:35 AM SQUEEGEE TENDER TYPE AND SCREEN Timed 09/12/2024 6:35 AM SQUEEGEE TENDER EGFR Timed 09/09/2024 6:24 AM SQUEEGEE TENDER COMPREHENSIVE METABOLIC PANEL Timed 09/09/2024 6:24 AM SQUEEGEE TENDER CBC WITHOUT DIFFERENTIAL Timed 09/09/2024 6:24 AM SQUEEGEE TENDER TYPE AND SCREEN Timed 09/09/2024 6:24 AM SQUEEGEE TENDER HEPATITIS C ANTIBODY Routine 05/20/2024 2:47 PM CDT Encounter for supervision of normal first in first trimester 11 weeks gestation of from Last 3 Months or Most Recently Relevant to Health Maintenance Results * ThinPrep processing (Molecular component) (11/03/2024 4:37 PM SQUEEGEE TENDER) ThinPrep processing (Molecular component) Specimen received for processing. [facility] Endocervical 11/03/2024 4:37 PM SQUEEGEE TENDER 11/07/2024 8:41 AM SQUEEGEE TENDER us Jada Ngo NP LAB BODY FLUIDS AND STOOLS ORDERABLES Final Result BIA [facility] Department [place] [address] [facility] * Pap with reflex to High Risk HPV and Genotyping (Cytology Component) (11/03/2024 4:37 PM SQUEEGEE TENDER) Thin prep (Pap test) 11/03/2024 4:37 PM SQUEEGEE TENDER 11/03/2024 5:54 PM SQUEEGEE TENDER Narrative PATHOLOGY [facility] - 11/11/2024 3:38 PM SQUEEGEE TENDER EPIC results best viewed via link to PDF [facility] [place] [address] Note to Patients: This report may contain [...] Gender: F : 1995 (Age: 29) Address: [address] [place] [address] [facility] #: [id number] Service: DESKTOP SUPPORT SPECIALIST Location: Patient Type: [facility] SPECIMEN Taken: 11/03/2024 Received: 11/03/2024 Accessioned: 11/07/2024 Reported: 11/11/2024 Physician(s): CORBY Billings FINAL INTERPRETATION SOURCE OF SPECIMEN Liquid based Thin Prep pap with Reflex HPV: STATEMENT OF ADEQUACY - Satisfactory for evaluation - Endocervical cells/transformation zone sample absent GENERAL CATEGORIZATION: - Negative for squamous intraepithelial lesion or malignancy [facility]/11/11/2024 15:38 SHANTEL Ely MS(ASCP)FREDRICK Report Electronically [...] clinical information and biopsy results as indicated. [facility] Clinical Laboratory Improvement Amendments (CLIA) mandate that cytologic and histologic results be correlated for laboratory construction quality control manager & improvement standards. FOR ALL HIGH-GRADE CASES [...] determined by the Surgical Pathology Department at [facility] as part of an ongoing it quality assurance analyst program and in compliance [...] determined by the Surgical Pathology Department of [facility]. It has not been cleared or approved by the U. S. Food and Drug Administration. Jada Ngo WELFARE ELIGIBILITY WORKER LAB CYTOLOGY ORDERA BLES Final Result PATHOLOGY [facility] 3rd Floor [place], [place] [phone] * (ABNORMAL) Urinalysis reflex to microscopic and culture Urine (10/16/2024 11:21 AM SQUEEGEE TENDER) Color, ur Yellow Yellow Clarity, ur Clear Clear BIA [facility] ([place]) Specific gravity, ur 1.020 [...] tendency for uric acid stone formation. Source: [facility] [address] Current Interpretive Data was last revised on [...] [facility] ([place]) Urine 10/16/2024 11:2 1 AM SQUEEGEE TENDER 10/16/2024 11:23 AM SQUEEGEE TENDER Satnam Nair MD LAB MICROBIOLOGY - GENERAL O RDERABLES Final Result BIA [facility] ([place]) 1 [facility] Department [place] [address] * (ABNORMAL) Urinalysis, microscopic only (10/16/2024 11:21 AM SQUEEGEE TENDER) WBC, ur 11-20(A) 0 - 5 /HPF RBC, ur >50(A) 0 - 2 /HPF [facility] ([place]) Epithelial cells, squamous, ur 1-5 0 - 5 /HPF [facility] ([place]) Bacteria, ur Trace(A) [facility] ([place]) Mucous, ur Present(A) [facility] ([place]) Culture Reflex Comment Reflex to urine culture will be performed. [facility] ([place]) Urine 10/16/2024 11:2 1 AM SQUEEGEE TENDER 10/16/2024 11:23 AM SQUEEGEE TENDER Satnam Nair MD LAB URINE ORDERABLES Final R esult Performing Organization Address [facility] Co de Phone Number BIA [facility] ([place]) [address] [place] [address] [place] [address] * Urine culture Urine (10/16/2024 11:21 AM SQUEEGEE TENDER) Report Final Report: Less than 100,000 colonies/mL (clinically insignificant growth based on current clinical standards) Comment:Testing performed by : [facility], [address] [place]., [address] Organism (CLINICALLY INSIGNIFICANT GROWTH XUKIP [facility] ([place]) Urine 10/16/2024 11:2 1 AM SQUEEGEE TENDER 10/16/2024 2:00 PM SQUEEGEE TENDER Narrative BIA [facility] ([place]) - 10/17/2024 3:36 PM SQUEEGEE TENDER Urine culture reflexed based upon urinalysis results. Testing performed by [facility] Microbiology Laboratory ([phone]) Satnam Nair MD LAB MICROBIOLOGY - GENERAL O RDERABLES Final Result Performing Organization Address [facility] de Phone Number [facility] ([place]) [address] [place] [address] * ECG 12 lead (10/16/2024 10:36 AM SQUEEGEE TENDER) 10/16/2024 10:3 6 AM SQUEEGEE TENDER Narrative [facility] - 10/17/2024 8:41 AM SQUEEGEE TENDER Vent Rate: 65 bpm RR Interval: 922 msec CA Interval: 147 msec QRS Duration: 101 msec QT Interval: 408 msec QTC Interval: 419 msec P-R-T [place]: 54 - 21 - 47 degrees IMPRESSION: SINUS RHYTHM NORMAL ECG Electronically Signed By: Dallas Ahn MD Satnam Nair MD ECG ORDERABLES Final Result Performing Organization Address City/[facility] Co de Phone Number [facility] * eGFR (10/16/2024 9:47 AM SQUEEGEE TENDER) eGFR >90 >=60 mL/min/1. 73 m2 Comment: [...] last reviewed 2021. Blood 10/16/2024 9:47 AM SQUEEGEE TENDER 10/16/2024 10:32 AM SQUEEGEE TENDER Satnam Nair MD LAB BLOOD ORDERABLES Final R esult [facility] ([place] 1 [facility] Department of Laboratories [place], [place] [id number] * Differential, auto (10/16/2024 9:47 AM SQUEEGEE TENDER) Neutrophil abs 2.8 1.5 - 6.5 K/cumm [...] Lymphocyte pct 28.3 % [facility] ([place]) Comment: Interpretive Data Percent cell count reference [...] revised on 2018. Blood 10/16/2024 9:47 AM SQUEEGEE TENDER 10/16/2024 10:32 AM SQUEEGEE TENDER us Satnam Nair MD LAB BLOOD ORDERABLES Final R esult BIA [facility] ([place]) 1 [facility] Department [place] [address] * CBC with auto differential (10/16/2024 9:47 AM SQUEEGEE TENDER) WBC 4.5 3.8 - 9.9 K/cumm Hgb [...] NRBC abs 0.00 0.00 - 0.01 K/cumm [facility] Blood 10/16/2024 9:47 AM SQUEEGEE TENDER 10/16/2024 10:32 AM SQUEEGEE TENDER us Satnam Nair MD LAB BLOOD ORDERABLES Final R esult [facility] ([place]) 1 [facility] Department [place] [address] * Comprehensive metabolic panel (10/16/2024 9:47 AM SQUEEGEE TENDER) Sodium 140 135 - 145 mmol/L Potassium, pl 3.6 3.3 - 4.9 mmol/L [facility] ([place]) Chloride 105 97 - 110 mmol/L [facility] ([place]) CO2 23 22 - 32 mmol/L [facility] ([place]) Anion gap 12 2 - 15 mmol/L [facility] ([place]) BUN 9 6 - 25 mg/dL [facility] ([place]) Creatinine 0.73 0.60 - 1.10 mg/dL [facility] ([place]) Glucose 97 70 - 199 mg/dL [facility] ([place]) Comment: Interpretive Data Fasting glucose [...] [facility] ([place]) Blood 10/16/2024 9:47 AM SQUEEGEE TENDER 10/16/2024 10:32 AM SQUEEGEE TENDER Satnam Nair MD LAB BLOOD ORDERABLES Final R esult [facility] ([place]) 1 [facility] Department of Laboratories [place], [place] [id number] * Rh Immune Globulin Eval (09/20/2024 4:48 AM SQUEEGEE TENDER) RhIg Administration 1 vial of Rh Immune Globulin (300 mcg dose) RhIg Eligible Yes, eligible [facility] Blood 09/20/2024 4:48 AM SQUEEGEE TENDER 09/20/2024 5:03 AM SQUEEGEE TENDER Narrative [facility] - 09/20/2024 5:36 AM SQUEEGEE TENDER Number of weeks ?->20 weeks or greater antibody screen result:->Negative Rhogam given?->Given Date Given?->08/01/24 Number of vials requested:->1 Sara Eng MD LAB BLOOD BANK TEST ORDERABL ES Final Result Performing Organization Address [facility] Co de Phone Number [facility] [place] [address] * Bleed Screen (09/20/2024 4:48 AM SQUEEGEE TENDER) Pathologist [facility] Bleed Screen Negative Blood 09/20/2024 4:48 AM SQUEEGEE TENDER 09/20/2024 5:03 AM SQUEEGEE TENDER Rey Quinonez MD LAB BLOOD BANK TEST ORDERABLE S Final Result Performing Organization Address [facility] de Phone Number [facility] [place] [address] * ABO/Rh (09/20/2024 4:48 AM SQUEEGEE TENDER) [facility] ABO Rh O Negative Blood 09/20/2024 4:48 AM SQUEEGEE TENDER 09/20/2024 5:03 AM SQUEEGEE TENDER Rey Quinonez MD LAB BLOOD BANK TEST ORDERABLE S Final Result Performing Organization Address [facility] de Phone Number [facility] [place] [address] * (ABNORMAL) CBC without differential (09/20/2024 4:48 AM SQUEEGEE TENDER) [facility] WBC 10.3(H) 3.8 - 9.9 K/cumm Hgb 9.7(L) 11.9 - 15.5 g/dL [facility] Hct 28.4(L) 35.6 - 45.5 % [facility] Plt 230 150 - 400 K/cumm [facility] MPV 10.8 9.1 - 12.3 fL [facility] RBC 3.22(L) 3.90 - 5.20 M/cumm [facility] MCV 88.2 81.3 - 96.4 fL [facility] MCH 30.1 27.1 - 33.3 pg [facility] MCHC 34.2 32.3 - 35.7 g/dL [facility] RDW CV 13.9 11.1 - 14.9 % [facility] RDW SD 44.6 35.7 - 48.1 fL [facility] NRBC abs 0.00 0.00 - 0.01 K/cumm [facility] Blood 09/20/2024 4:48 AM SQUEEGEE TENDER 09/20/2024 5:11 AM SQUEEGEE TENDER us Sara Eng MD LAB BLOOD ORDERABLES Final R esult [facility] Department [place] [address] * Surgical pathology (09/19/2024 4:06 PM SQUEEGEE TENDER) Tissue (Placenta) 09/19/2024 4:06 PM SQUEEGEE TENDER 09/20/2024 8:37 AM SQUEEGEE TENDER Narrative PATHOLOGY [facility] - 09/26/2024 2:16 PM SQUEEGEE TENDER EPIC results best viewed via link to PDF [facility] Nicole Brown Laboratory [place] [address] Note to Patients: This report may contain [...] Gender: F : 1995 (Age: 29) Address: [address] [place] [phone] Hospital #: [id number] Taken:09/19/2024 Received:09/20/2024 Reported: 09/26/2024 Patient Type: [facility] Inpatient Service: Obstetrics Location: [facility] 68[address] Physician(s): MD Sara Parker M.D. Diagnosis: Placenta, delivery - 662 grams diamnionic, monochorionic, pre-term twin placenta - Acute atherosis - Accelerated villous maturation -Trivascular cords with no histopathologic abnormalities [facility]/09/26/2024 14:16 By this signature, I attest that [...] discrete lesions or infarcts are grossly identified. Log Truck Driver sections are submitted: A1 = arbitrarily assigned twin A, cord and membranes; A2-4 = twin A, renewals representative parenchyma; A5 = common membrane and T-zone; A6 = arbitrarily assigned twin B, cord and membranes; A7-9 = twin B, renewals representative parenchyma. Jar 3. sxv/09/21/2024 11:11 PA(s): Catalino Hernandez MS, PA ([facility])CM By this signature, I attest that the above diagnosis is based upon my personal examination of the slides(and/or other material). Addenda/Procedures The performance characteristics of some immunohistochemical stains, fluorescence in-situ hybridization tests and immunophenotyping by flow cytometry cited in this report (if any) were determined by the Surgical Pathology and Flow Cytometry Departments at [facility] as part of an ongoing it quality assurance analyst program and in compliance [...] Surgical Pathology and Flow Cytometry Departments of [facility]. It has not been cleared or approved by the U. S. Food and Drug Administration. IMAGES AND SCANNED DOCUMENTS, IF INCLUDED, ONLY VIEWABLE IN PDF VERSION OF REPORT Sara Eng MD LAB PATHOLOGY ORDERABLES [facility] al Result PATHOLOGY [facility] 3rd Floor [place], [place] [phone] * Epidural Block (09/19/2024 2:45 PM SQUEEGEE TENDER) Narrative Abena Denton MD - 09/19/2024 2:45 PM SQUEEGEE TENDER Abena Denton MD 09/19/2024 2:50 PM Epidural [...] Final Result * eGFR (09/18/2024 6:21 AM SQUEEGEE TENDER) eGFR >90 >=60 mL/min/1. 73 m2 Comment: [...] last reviewed 2021. Blood 09/18/2024 6:21 AM SQUEEGEE TENDER 09/18/2024 6:32 AM SQUEEGEE TENDER us Anastasia Amaro MD LAB BLOOD ORDERABLES Final Result [facility] Department [place] [address] * (ABNORMAL) CBC without differential (09/18/2024 6:21 AM SQUEEGEE TENDER) Pathologist [facility] WBC 10.0(H) 3.8 - 9.9 K/cumm Hgb 11.6(L) 11.9 - 15.5 g/dL [facility] Hct 34.0(L) 35.6 - 45.5 % [facility] Plt 250 150 - 400 K/cumm [facility] MPV 11.0 9.1 - 12.3 fL [facility] RBC 3.92 3.90 - 5.20 M/cumm [facility] MCV 86.7 81.3 - 96.4 fL [facility] MCH 29.6 27.1 - 33.3 pg [facility] MCHC 34.1 32.3 - 35.7 g/dL [facility] RDW CV 13.7 11.1 - 14.9 % [facility] RDW SD 43.1 35.7 - 48.1 fL [facility] NRBC abs 0.00 0.00 - 0.01 K/cumm [facility] Blood 09/18/2024 6:21 AM SQUEEGEE TENDER 09/18/2024 6:32 AM SQUEEGEE TENDER Anastasia Amaro MD LAB BLOOD ORDERABLES Final Result [facility] Department [place] [address] * Type and screen (09/18/2024 6:21 AM SQUEEGEE TENDER) Pathologist [facility] Abiodun, indirect Negative ABO Rh O Negative [facility] Blood 09/18/2024 6:21 AM SQUEEGEE TENDER 09/18/2024 6:35 AM SQUEEGEE TENDER Narrative [facility] - 09/18/2024 7:42 AM SQUEEGEE TENDER Has the patient had Daratumumab or Isatuximab in the past 6 months?->Unknown Anastasia Amaro MD LAB BLOOD BANK TEST ORDERA BLES Final Result [facility] Department [place] [address] * (ABNORMAL) Comprehensive metabolic panel (09/18/2024 6:21 AM SQUEEGEE TENDER) Sodium 134(L) 135 - 145 mmol/L Potassium, pl 3.8 3.3 - 4.9 mmol/L [facility] Chloride 105 97 - 110 mmol/L [facility] CO2 23 22 - 32 mmol/L [facility] Anion gap 6 2 - 15 mmol/L [facility] BUN 9 6 - 25 mg/dL [facility] Creatinine 0.69 0.60 - 1.10 mg/dL [facility] Glucose 68(L) 70 - 199 mg/dL [facility] Comment: Interpretive Data Fasting glucose >/= 126 [...] Calcium 9.0 8.5 - 10.3 mg/dL [facility] Bilirubin, total 0.2 0.1 - 1.2 mg/dL [facility] Protein, pl 6.3(L) 6.5 - 8.5 g/dL [facility] Albumin 3.0(L) 3.5 - 5.0 g/dL [facility] Alk phos 125 40 - 130 Units/L [facility] ALT 14 7 - 45 Units/L [facility] AST 16 10 - 45 Units/L [facility] Blood 09/18/2024 6:21 AM SQUEEGEE TENDER 09/18/2024 6:32 AM SQUEEGEE TENDER Anastasia Amaro MD LAB BLOOD ORDERABLES Final Result [facility] Department [place] [address] * nonstress test (09/17/2024 2:58 PM SQUEEGEE TENDER) Narrative Sandra Christy MD - 09/17/2024 2:58 PM SQUEEGEE TENDER Joellen Schilling MD 09/17/2024 4:04 PM nonstress test Date/Time: 09/17/2024 2:58 PM Performed by: Maureen Calix MD Authorized by: Ana M Rogers MD Ana M Rogers MD OB GYNE ORDERABLES Fi nal Result * US Ob Follow Up (09/15/2024 1:08 PM SQUEEGEE TENDER) Fetus# Fetus1 VIEWPOINT Estimated Weight 1,709 g&grams VIEWPOINT Placenta Details anterior VIEWPOINT Presentation Vertex; Maternal right- low VIEWPOINT Fetus# Fetus2 VIEWPOINT Estimated Weight 2,585 g&grams VIEWPOINT Placenta Details anterior VIEWPOINT Presentation Vertex; Maternal left- high VIEWPOINT Anatomical Region Laterality Modality Abdomen N/A Ultrasound 09/15/2024 1:08 PM SQUEEGEE TENDER Impressions 09/15/2024 2:24 PM SQUEEGEE TENDER Diamniotic (presumed MCDA) TIUP at 33w33d who is admitted for preE with severe features who presents for growth US was previously determined to be monochorionic by the [facility] MFM practice. A thin dividing membrane [...] to be monochorionic by the [facility] MFMpractice. A thin dividing membrane and [...] R esult * eGFR (09/15/2024 6:17 AM SQUEEGEE TENDER) eGFR >90 >=60 mL/min/1. 73 m2 Comment: [...] last reviewed 2021. Blood 09/15/2024 6:17 AM SQUEEGEE TENDER 09/15/2024 6:31 AM SQUEEGEE TENDER us Anastasia Amaro MD LAB BLOOD ORDERABLES Final Result [facility] Department [place] [address] * (ABNORMAL) CBC without differential (09/15/2024 6:17 AM SQUEEGEE TENDER) WBC 10.1(H) 3.8 - 9.9 K/cumm Hgb 11.7(L) 11.9 - 15.5 g/dL [facility] Hct 34.6(L) 35.6 - 45.5 % [facility] Plt 253 150 - 400 K/cumm [facility] MPV 11.2 9.1 - 12.3 fL [facility] RBC 3.94 3.90 - 5.20 M/cumm [facility] MCV 87.8 81.3 - 96.4 fL [facility] MCH 29.7 27.1 - 33.3 pg [facility] MCHC 33.8 32.3 - 35.7 g/dL [facility] RDW CV 13.8 11.1 - 14.9 % [facility] RDW SD 44.1 35.7 - 48.1 fL [facility] NRBC abs 0.00 0.00 - 0.01 K/cumm [facility] Blood 09/15/2024 6:17 AM SQUEEGEE TENDER 09/15/2024 6:31 AM SQUEEGEE TENDER Anastasia Amaro MD LAB BLOOD ORDERABLES Final Result Performing Organization Address [facility] Co de Phone Number [facility] [place] [address] [place] [address] * Type and screen (09/15/2024 6:17 AM SQUEEGEE TENDER) Pathologist [facility] Abiodun, indirect Negative Comment:Patient has previous antibody history ABO Rh O Negative [facility] Blood 09/15/2024 6:17 AM SQUEEGEE TENDER 09/15/2024 6:30 AM SQUEEGEE TENDER Narrative [facility] - 09/15/2024 7:57 AM SQUEEGEE TENDER Has the patient had Daratumumab or Isatuximab in the past 6 months?->Unknown Anastasia Amaro MD LAB BLOOD BANK TEST ORDERA BLES Final Result Performing Organization Address [facility] Co de Phone Number [facility] [place] [address] * (ABNORMAL) Comprehensive metabolic panel (09/15/2024 6:17 AM SQUEEGEE TENDER) Pathologist [facility] Sodium 139 135 - 145 mmol/L Potassium, pl 3.5 3.3 - 4.9 mmol/L [facility] Chloride 106 97 - 110 mmol/L [facility] CO2 21(L) 22 - 32 mmol/L [facility] Anion gap 12 2 - 15 mmol/L [facility] BUN 8 6 - 25 mg/dL [facility] Creatinine 0.66 0.60 - 1.10 mg/dL [facility] Glucose 106 70 - 199 mg/dL [facility] Comment: Interpretive Data Fasting glucose >/= 126 [...] Calcium 9.0 8.5 - 10.3 mg/dL [facility] Bilirubin, total <0.2 0.1 - 1.2 mg/dL [facility] Protein, pl 6.4(L) 6.5 - 8.5 g/dL [facility] Albumin 3.0(L) 3.5 - 5.0 g/dL [facility] Alk phos 124 40 - 130 Units/L [facility] ALT 19 7 - 45 Units/L [facility] AST 20 10 - 45 Units/L [facility] Blood 09/15/2024 6:17 AM SQUEEGEE TENDER 09/15/2024 6:31 AM SQUEEGEE TENDER us Anastasia Amaro MD LAB BLOOD ORDERABLES Final Result [facility] Department [place] [address] * nonstress test (09/13/2024 5:10 PM SQUEEGEE TENDER) Narrative Sandra Christy MD - 09/13/2024 5:10 PM SQUEEGEE TENDER Anastasia Plaza MD 09/13/2024 5:21 PM 29 y.o. at 33w1d a/f preeclampsia with SF A FHR Baseline: 125>130>125 Variability: moderate Reactive: Yes B FHR Baseline: 130 Variability: moderate Reactive: Yes Contractions: absent Comments: Prolonged monitoring given periods of reassuring but non-reactive tracing, reactive from 16:50-17:10 I have reviewed NST and instructed RN to take off monitor Anastasia Plaza MD us Aan M Rogers MD OB GYNE ORDERABLES Fi nal Result * eGFR (09/12/2024 6:35 AM SQUEEGEE TENDER) eGFR >90 >=60 mL/min/1. 73 m2 Comment: [...] last reviewed 2021. Blood 09/12/2024 6:35 AM SQUEEGEE TENDER 09/12/2024 6:51 AM SQUEEGEE TENDER us Anastasia Amaro MD LAB BLOOD ORDERABLES Final Result [facility] Department of Laboratories [place], [place] [id number] * (ABNORMAL) CBC without differential (09/12/2024 6:35 AM SQUEEGEE TENDER) WBC 10.0(H) 3.8 - 9.9 K/cumm Hgb 11.8(L) 11.9 - 15.5 g/dL [facility] Hct 35.3(L) 35.6 - 45.5 % [facility] Plt 226 150 - 400 K/cumm [facility] MPV 11.2 9.1 - 12.3 fL [facility] RBC 3.97 3.90 - 5.20 M/cumm [facility] MCV 88.9 81.3 - 96.4 fL [facility] MCH 29.7 27.1 - 33.3 pg [facility] MCHC 33.4 32.3 - 35.7 g/dL [facility] RDW CV 13.8 11.1 - 14.9 % [facility] RDW SD 44.5 35.7 - 48.1 fL [facility] NRBC abs 0.02(H) 0.00 - 0.01 K/cumm [facility] Blood 09/12/2024 6:35 AM SQUEEGEE TENDER 09/12/2024 6:52 AM SQUEEGEE TENDER us Anastasia Amaro MD LAB BLOOD ORDERABLES Final Result Performing Organization Address City/[facility]/ZIP Co de Phone Number [facility] [place] [address] * Type and screen (09/12/2024 6:35 AM SQUEEGEE TENDER) ABO Rh O Negative Abiodun, indirect Negative [facility] Comment:Patient has previous antibody history Blood 09/12/2024 6:35 AM SQUEEGEE TENDER 09/12/2024 6:48 AM SQUEEGEE TENDER Narrative [facility] - 09/12/2024 7:49 AM SQUEEGEE TENDER Has the patient had Daratumumab or Isatuximab in the past 6 months?->Unknown Anastasia Amaro MD LAB BLOOD BANK TEST ORDERA BLES Final Result Performing Organization Address City/[facility]/ZIP Co de Phone Number [facility] [place] [address] * (ABNORMAL) Comprehensive metabolic panel (09/12/2024 6:35 AM SQUEEGEE TENDER) Sodium 139 135 - 145 mmol/L Potassium, pl 3.8 3.3 - 4.9 mmol/L [facility] Chloride 107 97 - 110 mmol/L [facility] CO2 22 22 - 32 mmol/L [facility] Anion gap 10 2 - 15 mmol/L [facility] BUN 6 6 - 25 mg/dL [facility] Creatinine 0.64 0.60 - 1.10 mg/dL [facility] Glucose 69(L) 70 - 199 mg/dL [facility] Comment: Interpretive Data Fasting glucose >/= 126 [...] 2022. Calcium 8.8 8.5 - 10.3 mg/dL [facility] Bilirubin, total <0.2 0.1 - 1.2 mg/dL [facility] Protein, pl 6.4(L) 6.5 - 8.5 g/dL [facility] Albumin 3.1(L) 3.5 - 5.0 g/dL [facility] Alk phos 122 40 - 130 Units/L [facility] ALT 22 7 - 45 Units/L [facility] AST 23 10 - 45 Units/L [facility] Blood 09/12/2024 6:35 AM SQUEEGEE TENDER 09/12/2024 6:51 AM SQUEEGEE TENDER us Anastasia Amaro MD LAB BLOOD ORDERABLES Final Result [facility] Department [place] [address] * eGFR (09/09/2024 6:24 AM SQUEEGEE TENDER) [facility] eGFR >90 >=60 mL/min/1. 73 m2 [...] last reviewed 2021. Blood 09/09/2024 6:24 AM SQUEEGEE TENDER 09/09/2024 6:52 AM SQUEEGEE TENDER us Anastasia Amaro MD LAB BLOOD ORDERABLES Final Result [facility] Department [place] [address] * (ABNORMAL) CBC without differential (09/09/2024 6:24 AM SQUEEGEE TENDER) [facility] WBC 8.6 3.8 - 9.9 K/cumm Hgb 10.9(L) 11.9 - 15.5 g/dL [facility] Hct 33.1(L) 35.6 - 45.5 % [facility] Plt 239 150 - 400 K/cumm [facility] MPV 11.0 9.1 - 12.3 fL [facility] RBC 3.77(L) 3.90 - 5.20 M/cumm [facility] MCV 87.8 81.3 - 96.4 fL [facility] MCH 28.9 27.1 - 33.3 pg [facility] MCHC 32.9 32.3 - 35.7 g/dL [facility] RDW CV 13.8 11.1 - 14.9 % [facility] RDW SD 43.8 35.7 - 48.1 fL [facility] NRBC abs 0.00 0.00 - 0.01 K/cumm [facility] Blood 09/09/2024 6:24 AM SQUEEGEE TENDER 09/09/2024 6:52 AM SQUEEGEE TENDER Anastasia Amaro MD LAB BLOOD ORDERABLES Final Result Performing Organization Address [facility] de Phone Number [facility] [place] [address] * Type and screen (09/09/2024 6:24 AM SQUEEGEE TENDER) ABO Rh O Negative Abiodun, indirect Negative [facility] Comment:Patient has previous antibody history Blood 09/09/2024 6:24 AM SQUEEGEE TENDER 09/09/2024 7:19 AM SQUEEGEE TENDER Narrative [facility] - 09/09/2024 8:51 AM SQUEEGEE TENDER Has the patient had Daratumumab or Isatuximab in the past 6 months?->Unknown Anastasia Amaro MD LAB BLOOD BANK TEST ORDERA BLES Final Result Performing Organization Address [facility] de Phone Number [facility] [place] [address] * (ABNORMAL) Comprehensive metabolic panel (09/09/2024 6:24 AM SQUEEGEE TENDER) Sodium 141 135 - 145 mmol/L Potassium, pl 3.8 3.3 - 4.9 mmol/L [facility] Chloride 108 97 - 110 mmol/L [facility] CO2 22 22 - 32 mmol/L [facility] Anion gap 11 2 - 15 mmol/L [facility] BUN 8 6 - 25 mg/dL [facility] Creatinine 0.75 0.60 - 1.10 mg/dL [facility] Glucose 70 70 - 199 mg/dL [facility] Comment: Interpretive Data Fasting glucose >/= 126 [...] Calcium 8.9 8.5 - 10.3 mg/dL [facility] Bilirubin, total <0.2 0.1 - 1.2 mg/dL [facility] Protein, pl 6.2(L) 6.5 - 8.5 g/dL [facility] Albumin 3.2(L) 3.5 - 5.0 g/dL [facility] Alk phos 117 40 - 130 Units/L [facility] ALT 22 7 - 45 Units/L [facility] AST 23 10 - 45 Units/L [facility] Blood 09/09/2024 6:24 AM SQUEEGEE TENDER 09/09/2024 6:52 AM SQUEEGEE TENDER Anastasia Amaro MD LAB BLOOD ORDERABLES Final Result [facility] Department [place] [address] * Hepatitis C antibody Blood (05/20/2024 2:47 [...] Final Result Performing Organization Address City/State/[place] Number [place] [address] [address] Department [place] [address] from Last 3 Months or Most Recently Relevant to Health Maintenance Insurance [place] [facility] [place] [employer] [place] Advance Directives For more information, please contact: [phone] * Full Code (Latest Code Status on File) Date Activated Date Inactivated Comments 09/19/2024 4:34 PM 09/22/2024 3:32 PM * Full Code Date Activated Date Inactivated Comments 07/29/2024 3:05 AM 09/19/2024 4:34 PM Care Teams Process Engineering Manager Relationship Specialty Start Date End Date No, Physician PCP - General 02/25/24
--- OUTSIDE RECORDS SUMMARY | 2024-12-08 01:09 | XMS_ITS | Clinical Summary ---
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 difficile 10/20/2018 10/20/2018 Insurance [facility] MEDICAID
--- NOTE | 2024-12-08 01:12 | ED_ITS ---
HPI - Anxiety General Chief Complaint: Arrhythmia/Palpitations Stated Complaint: heart palpitations Time Seen by Provider: 12/08/24 01:11 Source: patient Mode of arrival: ambulatory Limitations: no limitations History of Present Illness HPI narrative: 29-year-old female with a history of IBS, GERD, status post cholecystectomy, preeclampsia with successful delivery of twins 3 months ago, complicated by hypertension, anxiety/ depression for which she was started on Lexapro 2 days ago presents to the ED with a 4 hour history of -- palpitation. No chest pain. No shortness of breath. -- Anxiety No nausea/ vomiting /abdominal pain / diarrhea. patient was seen 3 days ago for urinary tract infection. patient had an echo on 11/15/2024 which was unremarkable. Patient is currently on propanolol and losartan for her blood pressure. complaint: anxiety and heart racing Onset (ago): hour(s) ( 4 hours) Symptoms: palpitations Severity: mild Quality: constant Place: home History of similar episodes: Yes Provoking factors: other ( patient was started on escitalopram 2 days ago.) Relieving factors: nothing Exacerbating factors: nothing Associated symptoms: denies other symptoms Related Data Home Medications ?Medication ?Instructions ?Recorded ?Confirmed ?Last Taken ?Type escitalopram oxalate 20 mg tablet 20 mg PO .QD 09/29/24 11/13/24 Unknown History nifedipine 60 mg tablet,extended 60 mg PO .Q24 09/29/24 12/08/24 09/28/24 History release propranolol 160 mg capsule,24 160 mg PO Q24H 11/13/24 11/13/24 Unknown History hr,extended release lorazepam 1 mg tablet (Ativan) 0.5 mg PO Q8-12H PRN anxiety 12/08/24 12/08/24 Unknown History nortriptyline 10 mg capsule 10 mg PO Q12H 12/08/24 12/08/24 Unknown History Allergies Allergy/AdvReac Type Severity Reaction Status Date / Time No Known Allergies Allergy Verified 12/08/24 01:09 Review of Systems 2 Review of Systems: All systems reviewed & are unremarkable except as noted in HPI and below PMFSH Past Medical History Medical History (Updated 12/08/24 @ 02:12 by Elio Dillon MD) Acid reflux Anxiety Irritable bowel Surgical History Surgical History History of cholecystectomy Family History Family History Mother Family history of mental disorder Sibling Family history of mental disorder Father Hypertension Grandparent Diabetes mellitus Social History Social History Smoking status: Never smoker Alcohol intake: current Gender identity (if verbalized by the patient): Female Exam 2 Narrative: Blood pressure is 136/101. Pulse 84. Afebrile. Oxygen saturation of 100% on room air Const: General: no acute distress Nutritional Appearance: well nourished Orientation/consciousness: patient oriented x3 Limitations: no limitations HENMT: Head: normal to inspection Ears: external ears normal F anette/Nose/Sinus: Normal external nose present Face and sinus: normal facial exam Mouth: Yes Normal oral and palatal mucosa present Throat: posterior oropharynx normal Eyes: Conjunctivae: conjunctivae normal Pupils: Equal, round and reactive pupils present EOM: EOMs intact bilaterally Direct Ophthalmoscopy: no photophobia Neck: Neck: normal visual inspection, no lymphadenopathy and no meningeal signs Chest: Chest palpation & inspection: normal inspection of the chest Resp: Effort & Inspection: normal respiratory effort Auscultation: clear to auscultation bilaterally Cardio: Rate: regular rate Rhythm: regular rhythm GI: GI Palp: Yes Soft to palpation Auscultation: normal bowel sounds O ther: no tenderness/ rigidity /rebound. : General: Yes no CVA tenderness Back/Spine/Pelvis: Back: no CVA tenderness Skin: General skin exam: normal color Rashes: no rashes Wounds: no wounds Neuro: General: patient oriented x3, moves all extremities, no meningeal signs, no focal motor deficits and CN's II-XI intact bilaterally Speech: n ormal speech Extrem: General: normal to inspection and no clubbing, cyanosis or edema Psych: Mental Status: mental status grossly normal Affect: Anxious affect present Attitude: cooperative Course Course Emergency Course: Anxiety palpitation-- secondary to hypokalemia, anxiety. Patient received Aldactone and KCl 40 mEq p.o.. Patient was discharged home on Aldactone 25 mg daily. Advised to follow up with primary care physician to recheck electrolyte levels. Vital Signs Vital signs: Vital Signs Temperature 36.0 C L 12/08/24 01:07 Pulse Rate 84 03/06/25 01:07 Respiratory Rate 18 12/08/24 01:07 Blood Pressure 136/101 H 12/08/24 01:07 Pulse Oximetry 100 12/08/24 01:07 Oxygen Delivery Room Air 12/08/24 01:07 Temperature 36.0 C L 12/08/24 01:07 Pulse Rate 79 12/08/24 02:13 Respiratory Rate 20 12/08/24 02:13 Blood Pressure 125/92 H 12/08/24 02:13 Pulse Oximetry 100 12/08/24 02:13 Oxygen Delivery Room Air 12/08/24 02:13 MDM - Anxiety Lab Data 12/08/24 01:40 12/08/24 01:40 Labs: Lab Results 12/08/24 12/08/24 Range/Units 01:35 01:40 WBC 7.4 (4.8-10.8) K/mm3 RBC 4.85 (4.20-5.40) M/mm3 Hgb 13.5 (12.0-15.0) g/dL Hct 40.0 (35.0-49.0) % MCV 82.5 (78.0-102.0) fL MCH 27.8 (27.0-31.0) pg MCHC 33.8 (32-36) g/dL RDW 13.2 (11.6-14.4) % Plt Count 381 (150-420) K/mm3 MPV 9.8 (9.2-11.8) fl Immature Gran % (Auto) 0.5 H (0.0-0.0) % Neut % (Auto) 54.1 (50.0-70.0) % Lymph % (Auto) 31.8 (18.0-42.0) % Ripley % (Auto) 12.8 H (2.0-11.0) % Eos % (Auto) 0.7 L (1.0-6.0) % Baso % (Auto) 0.1 (0.0-1.0) % Lymph # (Auto) 2.34 (1.10-4.50) K/mm3 Ripley # (Auto) 0.94 H (0.10-0.90) K/mm3 Eos # (Auto) 0.05 (0.02-0.50) K/mm3 Baso # (Auto) 0.01 (0.00-0.10) K/mm3 Abs Immat Gran (auto) 0.04 H (0.00-0.00) K/mm3 Absolute Neuts (auto) 3.98 (1.70-7.20) K/mm3 Absolute Nucleated RBC 0.00 (0.00-0.00) K/mm3 Nucleated RBC % 0.0 (0-0.0) % Sodium 141 (136-145) mmol/L Potassium 3.0 L (3.5-5.1) mmol/L Chloride 103 (98-108) mmol/L Carbon Dioxide 29 (21-32) mmol/L Anion Gap 9 (4-12) mmol/L BUN 11 (7-18) mg/dL Creatinine 1.02 (0.55-1.02) mg/dL Estim Creat Clear Calc 89 ml/min Estimated GFR > 60 (59 - ) Glucose 95 (70-99) mg/dL Calculated Osmolality 291 (285-295) mOsm/kg Calcium 9.4 (8.5-10.1) mg/dL Total Bilirubin 0.7 (0.00-1.00) mg/dL AST 10 L (15-37) U/L ALT 25 (14-59) U/L Alkaline Phosphatase 67 (46-116) U/L Troponin I < 4.0 (0.00-60.4) ng/L Total Protein 8.1 (6.4-8.2) g/dL Albumin 4.1 (3.4-5.0) g/dL TSH 2.75 (0.36-3.74) uIU/mL Urine Color Yellow (Yellow) Urine Appearance Clear (Clear) Urine pH 6.5 (5.0-8.0) Ur Specific Apex 1.020 (1.010-1.020) Urine Protein Trace H (Negative) Urine Glucose (UA) Negative (Negative) Urine Ketones 1+ H (Negative) Ur Blood (Man) Negative (Negative) Urine Nitrate Negative (Negative) Urine Bilirubin 2+ H (Negative) Urine Urobilinogen 1.0 (0.2-1.0) mg/dL Leukocyte Esterase Rfl Trace H (Negative) TIMA/UL Urine RBC 0-2 (0-2) /hpf Urine WBC 0-3 (0-3) /hpf Ur Squamous Epith Cells Few (Few) /hpf Urine Bacteria 1+ H (None) /hpf Urine Test Negative ECG Data EKG #1: ECG completion date: 12/08/24 ECG completion time: 01:27 Interpretation: normal sinus rhythm. Normal axis. No ST elevation. Discharge Plan Discharge Clinical Impression: Palpitations, Anxiety, Hypokalemia Patient Disposition: Home, Self-Care Condition: Stable Instructions: Antibiotic Form, Heart Palpitations (ED), Hypokalemia (ED), Anxiety (ED) Patient Language: Macedonian Prescriptions: New spironolactone 25 mg tablet 25 mg PO DAILY Qty: 30 0RF No Action lorazepam [Ativan] 1 mg tablet 0.5 mg PO Q8-12H PRN (Reason: anxiety) nortriptyline 10 mg capsule 10 mg PO Q12H escitalopram oxalate 20 mg tablet 20 mg PO .QD nifedipine 60 mg tablet extended release 60 mg PO .Q24 propranolol 160 mg capsule,extended release 24 hr 160 mg PO Q24H Follow-up/Referrals: Bertrand Stephen MD [Primary Care Provider] - Time of Disposition: 02:16
--- NOTE | 2024-12-08 01:20 | ECG_ITS ---
Test Date: 2024-12-08 01:24:35 Measurements Intervals [place] Rate: 72 P: 61 NE: 151 QRS: 21 QRSD: 96 T: 19 QT: 389 QTc: 426 Interpretive Statements SINUS RHYTHM NONSPECIFIC T-WAVE ABNORMALITY Compared to ECG 11/13/2024 20:40:07 T-wave abnormality now present Electronically Signed On 12-08-2024 13:58:37 INSULATOR CUTTER [employer]MER by Kai Gallardo M.D.
--- NOTE | 2024-12-08 01:32 | PC.NURSE ---
pt ambulated to bathroom for urine specimen
--- NOTE | 2024-12-08 01:36 | PC.NURSE ---
amb to bathroom to void. sample to lab. lab at bedside to draw.
[2024-12-08 01:43] LABS: Basophils Absolute Auto 0.01 K/mm3 (0.00-0.10); Basophils Percent Auto 0.1 % (0.0-1.0); Eosinophils Absolute Auto 0.05 K/mm3 (0.02-0.50); Eosinophils Percent Auto 0.7 % (1.0-6.0); Hemoglobin 13.5 g/dL (12.0-15.0); Immature Granulocyte Absolute 0.04 K/mm3 (0.00-0.00); Immature Granulocyte Percent A 0.5 % (0.0-0.0); Lymphocytes Absolute Auto 2.34 K/mm3 (1.10-4.50); Lymphocytes Percent Auto 31.8 % (18.0-42.0); Mean Corpuscular HGB Conc 33.8 g/dL (32-36); Mean Corpuscular Hemoglobin 27.8 pg (27.0-31.0); Mean Corpuscular Volume 82.5 fL (78.0-102.0); Mean Platelet Volume 9.8 fl (9.2-11.8); Monocytes Absolute Auto 0.94 K/mm3 (0.10-0.90); Monocytes Percent Auto 12.8 % (2.0-11.0); Neutrophils Absolute Auto 3.98 K/mm3 (1.70-7.20); Neutrophils Percent Auto 54.1 % (50.0-70.0); Platelet Count Result 381 K/mm3 (150-420); Red Blood Count 4.85 M/mm3 (4.20-5.40); Red Cell Distribution Width 13.2 % (11.6-14.4); White Blood Count 7.4 K/mm3 (4.8-10.8)
[2024-12-08 01:48] LABS: Add Urine Microscopic? YES; Appearance Urine Clear (Clear); Bilirubin Urine 2+ (Negative); Blood Urine Negative (Negative); Color Urine Yellow (Yellow); Glucose Urine UA Negative (Negative); Ketones Urine 1+ (Negative); Leukocyte Esterase Ur Trace LEU/UL (Negative); Nitrate Urine Negative (Negative); Pregnancy On Board Control Positive; Protein Urine Trace (Negative); Urine Pregnancy Test Negative; pH Urine 6.5 (5.0-8.0)
[2024-12-08 01:51] LABS: Bacteria Urine 1+ /hpf; RBC Urine 0-2 /hpf (0-2); Squamous Epithelial Cell Urine Few /hpf (Few); WBC Urine 0-3 /hpf (0-3)
[2024-12-08 02:08] LABS: Alanine Aminotransferase 25 U/L (14-59); Albumin Level 4.1 g/dL (3.4-5.0); Alkaline Phosphatase 67 U/L (46-116); Anion Gap 9 mmol/L (4-12); Aspartate Amino Transferase 10 U/L (15-37); Bilirubin,Total 0.7 mg/dL (0.00-1.00); Blood Urea Nitrogen 11 mg/dL (7-18); Calcium 9.4 mg/dL (8.5-10.1); Carbon Dioxide 29 mmol/L (21-32); Chloride 103 mmol/L (98-108); Estimated CRCL calculation 89 ml/min; Estimated Glomerular Filt Rate > 60; Glucose 95 mg/dL (70-99); Osmolality Calculated 291 mOsm/kg (285-295); Sodium 141 mmol/L (136-145); Thyroid Stimulating Hormone 2.75 uIU/mL (0.36-3.74); Total Protein 8.1 g/dL (6.4-8.2); Troponin I < 4.0 ng/L (0.00-60.4)
[2024-12-08 02:13] VITALS: BP 125/92; PULSE 79; RESP 20; O2SAT 100
[2024-12-08] MEDS: SPIRONOLACTONE 25 MG TABLET PO (02:17)
[2024-12-08] MEDS: POTASSIUM CHLORIDE 20 MEQ ER TABLET 40 MEQ PO (02:17)
== END 2024-12-08 02:24 | disposition home or self-care (01) ==
PROVIDERS: Emergency Provider Internal Medicine Critical Care Medicine; PCP Internal Medicine
DX: R00.2 Palpitations (principal); F41.9 Anxiety disorder, unspecified; E87.6 Hypokalemia; Z90.49 Acquired absence of other specified parts of digestive tract; I10 Essential (primary) hypertension; Z79.899 Other long term (current) drug therapy
CPT/HCPCS: 36415; 80053; 81001; 81025; 84443; 84484; 85025; 93005; 99284; A9270

== ENCOUNTER 2024-12-09 11:59 | Outpatient (CLI) | payer OTHER, MEDICAID, SELFPAY ==
[2024-12-09 12:38] LABS: Anion Gap 8 mmol/L (4-12); Blood Urea Nitrogen 14 mg/dL (7-18); Calcium 9.9 mg/dL (8.5-10.1); Carbon Dioxide 30 mmol/L (21-32); Chloride 102 mmol/L (98-108); Estimated Glomerular Filt Rate > 60; Glucose 101 mg/dL (70-99); Magnesium 2.5 mg/dL (1.8-2.4); Osmolality Calculated 290 mOsm/kg (285-295); Potassium 4.4 mmol/L (3.5-5.1); Sodium 140 mmol/L (136-145)
--- OUTSIDE RECORDS SUMMARY | 2024-12-09 12:40 | XMS_ITS | Encounter Summary ---
Author Organization 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 difficile 10/20/2018 10/20/2018 documented as of this encounter
--- OUTSIDE RECORDS SUMMARY | 2024-12-09 12:40 | XMS_ITS | Clinical Summary ---
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 difficile 10/20/2018 10/20/2018 Insurance [facility] MEDICAID
== END 2024-12-09 12:00 | disposition home or self-care (01) ==
LOC: CHSLAB 12:01
PROVIDERS: PCP Internal Medicine; Visit Provider Internal Medicine
DX: E87.6 Hypokalemia (principal)
CPT/HCPCS: 36415; 80048; 83735

== ENCOUNTER 2025-03-03 14:14 | Outpatient (CLI) | payer OTHER, MEDICAID, SELFPAY ==
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
[2025-03-03 14:50] LABS: Alanine Aminotransferase 18 U/L (6-35); Albumin Level 4.2 g/dL (3.5-5.1); Alkaline Phosphatase 59 U/L (38-126); Anion Gap 4 mmol/L (4-12); Aspartate Amino Transferase 22 U/L (14-36); Bilirubin,Total 0.7 mg/dL (0.2-1.3); Blood Urea Nitrogen 16 mg/dL (7-17); Calcium 9.1 mg/dL (8.4-10.2); Carbon Dioxide 27 mmol/L (22-30); Chloride 109 mmol/L (98-107); Estimated Glomerular Filt Rate > 60; Glucose 90 mg/dL (65-110); Magnesium 2.2 mg/dL (1.6-2.3); Osmolality Calculated 291 mOsm/kg (285-295); Potassium 4.4 mmol/L (3.4-5.0); Sodium 140 mmol/L (137-145); Total Protein 7.2 g/dL (6.3-8.2)
== END 2025-03-03 14:15 | disposition home or self-care (01) ==
LOC: CHSLAB 14:16
PROVIDERS: PCP Internal Medicine; Visit Provider Internal Medicine
DX: I10 Essential (primary) hypertension (principal)
CPT/HCPCS: 36415; 80053; 83735